=== PATIENT | female | born 1965 | race Caucasian/White ===

== ENCOUNTER 2016-03-19 11:42 | Outpatient (RCR) | payer MEDICARE, MEDICAID ==
[~2016-03-19 11:42] MED LIST: ACET1TAB43 PO; ALBU0.632 IH; AMIT100T2 PO; AMIT50TA3 PO; AMLO5TAB2 PO; ASEN10TA9 SL; BETA15CR37 TP; BUPR150T6 PO; BUPR300T51 PO; CIPR-225 PO; CIPR500T78 PO; CLON0.5T3 PO; CODE-54 PO; DESV100T PO; DILT120C17 PO; DOCU-238 PO; Docusate Sodium PO; ESTR1TAB24 PO; ESTRADIOL TOP; FERR-57 PO; FISH OIL OMEGA1 EACH PO; HYDR-3454 PO; HYDR-3730 PO; HYDR50TA3 PO; IBUP-1773 PO; Ibuprofen PO; LISI10TA2 PO; LISI40TA PO; METR500T PO; MOME13HF2 IH; MTF500T PO; NITR-65 PO; OMEP20CA12 PO; OXCA300T PO; OXYC-197 PO; OXYC5TAB71 PO; PHEN-640 PO; POTA10CA43 PO; POTA25PA PO; PRAM0.128 PO; PRAM0.252 PO; PRM25T PO; PROP80CA4 PO; SOLI5TAB4 PO
--- OUTSIDE RECORDS SUMMARY | 2016-03-19 11:45 | XMS REPORT | Continuity of Care Document ---
Author Author [facility] Organization [facility] Address Unknown Phone Unavailable Care Team Providers Care Second Cutter Name Role Phone Amy Cartagena PCP [phone] Source Comments Some departments are not documenting in the electronic medical record. If you do not see the information that you expected, contact Release of Information in the Health Information Management department at [phone] for further assistance in locating additional records.[facility] Active Allergies and Adverse Reactions Allergen Noted Date Severity Reactions Comments Marikaien 12/16/2015 Low AGITATION Prozac 12/16/2015 Low AGITATION Current Medications Prescription Sig. Disp. Refills Start End Date Status Date pramipexole (MIRAPEX) Take 0.375 mg by mouth at Active 0.125 mg tablet bedtime daily. solifenacin(+) (VESICARE) Take 10 mg by mouth Active 10 mg tablet daily. omeprazole DR(+) Take 20 mg by mouth twice Active (PRILOSEC) 20 mg capsule daily. exemestane (AROMASIN) 25 Take 25 mg by mouth Active mg tab daily. Take after a meal. amitriptyline (ELAVIL) Take 200 mg by mouth at Active 100 mg tablet bedtime as needed. diltiazem (CARDIZEM) 120 Take 120 mg by mouth Active mg tab twice daily. ibuprofen (MOTRIN) 800 mg Take 800 mg by mouth Active tablet every 6 hours as needed for Pain. Take with food. albuterol-ipratropium Inhale 3 mL solution by Active (DUONEB) 0.5 mg-3 mg(2.5 nebulizer as directed mg base)/3 mL nebulizer twice daily as needed for solution Wheezing. albuterol (VENTOLIN HFA, Inhale 2 Puffs by mouth Active PROAIR HFA, PROVENTIL into the lungs every 6 HFA) 90 mcg/actuation hours as needed for inhaler Wheezing or Shortness of Breath. Shake well before use. oxyCODONE/acetaminophen Take 1 Tab by mouth every 40 Tab 0 12/26/19 03/17/20 Discontin (PERCOCET) 5/325 mg 6 hours as needed for 16 16 ued tablet Pain Active Problems No known active problems Most Recent Encounters Date Type Specialty Providers Description 03/17/2016 Hospital Khanh Campoverde MD Breast cancer (HCC) Encounter 03/17/2016 Anesthesia Dorian Jarrell, CENTRAL OFFICE EQUIPMENT ENGINEER Event 03/17/2016 Surgery Khanh Campoverde MD RECONSTRUCTION BREAST WITH IMPLANT-Left tissue production weigher exchange for fdc silicone implant, right breast reduction for symmetry, and excision of excess tisse under arms 02/18/2016 Prep for Case Plastic Surgery Khanh Campoverde MD 02/17/2016 Office Visit Plastic Surgery Khanh Campoverde MD Postoperative state (Primary Dx) 02/06/2016 Nurse Only Plastic Surgery Daniela Velasquez RN 02/04/2016 Telephone Plastic Surgery Khanh Campoverde MD General Question - question 01/27/2016 Office Visit Plastic Surgery Khanh Campoverde MD Postoperative state (Primary Dx) 01/16/2016 Nurse Only Plastic Surgery Daniela Velasquez RN 01/09/2016 Nurse Only Plastic Surgery Daniela Velasquez RN 01/01/2016 Nurse Only Plastic Surgery Daniela Velasquez, JUAN 12/26/2015 Surgery Khanh Campoverde MD INSERTION TISSUE SANDWICH WRAPPER BREAST, DELAYED 12/24/2015 Telephone Plastic Khanh Lama MD Pre-op Clearance - phone call from pharmacy 12/22/2015 Telephone Kirill Murray MD Breast Problem Social History Tobacco Use Types Packs/Day Years Used Date Never Smoker Smokeless Tobacco: Never Used Alcohol Use Drinks/Week oz/Week Comments Yes 0 Standard 0.0 OCCASIONAL drinks or equivalent Last Filed Vital Signs Vital Sign Reading Time Taken Blood Pressure 121/74 03/17/2016 5:40 PM HOME STEREO EQUIPMENT INSTALLER Pulse 88 03/17/2016 5:40 PM HOME STEREO EQUIPMENT INSTALLER Temperature 36.3 C (97.3 F) 03/17/2016 3:57 PM HOME STEREO EQUIPMENT INSTALLER Respiratory Rate 18 12/16/2015 12:12 PM CDT Height 1.486 m (4' 10.5") 03/17/2016 10:37 AM HOME STEREO EQUIPMENT INSTALLER Weight 89.4 kg (197 lb 1.5 oz) 03/17/2016 10:37 AM HOME STEREO EQUIPMENT INSTALLER Body Mass Index 40.49 03/17/2016 10:37 AM HOME STEREO EQUIPMENT INSTALLER Oxygen Saturation 93% 03/17/2016 5:40 PM HOME STEREO EQUIPMENT INSTALLER Plan of Care Date Type Specialty Providers Description 03/24/2016 Appointment Plastic Surgery Daniela Velasquez, JUAN Health Maintenance Due Date Last Done Comments Physical (Comprehensive) 06/26/1974 Exam Pertussis Vaccine 06/26/1978 Tetanus Vaccine 06/26/1984 Cervical Cancer Screening 06/26/1988 Breast Cancer Screening 2007 Influenza Vaccine 12/19/2015 Procedures from Last 3 Months Procedure Name Priority Date/Time Associated Diagnosis Comments PROCEDURES-SCAN 03/18/2016 Results for this 11:47 AM HOME STEREO EQUIPMENT INSTALLER procedure are in the results section. 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 INSERTION TISSUE SANDWICH WRAPPER 12/26/2015 Breast cancer (HCC) BREAST, DELAYED 7:45 AM CDT Special Needs Results from Last 3 Months PROCEDURES-SCAN (03/18/2016 11:47 AM) Narrative Ordered by an unspecified provider. PROCEDURES-SCAN (12/27/2015 3:28 PM) Narrative Ordered by an unspecified provider. SURGICAL PATHOLOGY (12/26/2015 9:48 AM) Component Value Range PATHOLOGY REPORT [facility] [email or web address] Fabian Spencer MD, PhD, Director of Anatomic Pathology Department of Pathology and Laboratory Medicine [address] [place] [id number] Surgical Pathology Office: [phone] SURGICAL PATHOLOGY REPORT NAME: RADHA HERRERA SURG PATH #: [id number] MR #: [id number] SPECIMEN CLASS: SR BILLING #: [id number] ALT ID #: LOCATION: [facility] DATE OF PROCEDURE: 12/26/2015 AGE: 50 SEX: F DATE RECEIVED: 12/26/2015 : 1965 TIME RECEIVED: 09:48 PHYSICIAN: KHANH CAMPOVERDE MD DATE OF REPORT: 12/27/2015 COPY TO: DATE OF PRINTIN12/27/2015 ################################################## ###################### Final Diagnosis: A. Skin, "left breast mastectomy skin", excision: Dermal fibrosis Attestation: By this signature, I attest that I have personally formulated the final interpretation expressed in this report and that the above diagnosis is based upon my examination of the slides and/or other material indicated in this report. +++Electronically Signed Out By+++ oriana/12/26/2015 Interpreted by: Wilber Bailey MD, Attending Physician 12/27/2015 ################################################## ###################### Material Received: A: left breast mastectomy skin History: 50-year-old female with a history of breast cancer. Gross Description: A. Received in formalin, labeled with the patient's name and "left breast mastectomy scar" are two excisions of pale pimentel skin and underlying tissue that measure 1.5 x 1.5 x 1.0 cm and 10.0 x 1.0 x 1.0 cm. The skin surface of the largest demonstrates a 3.0 x 0.3 cm white area that is grossly consistent with scar. Both are serially sectioned and customer assistance representative sections are submitted in cassette A1. (jkh) jhema/12/26/2015
[2016-03-19 12:08] LABS: BASOPHILS # (AUTO) 0.1 10^3/uL (0.0-0.1); BASOPHILS % (AUTO) 1 % (0-10); EOSINOPHILS # (AUTO) 0.6 10^3/uL (0.0-0.3); EOSINOPHILS % (AUTO) 5 % (0-10); LYMPHOCYTES # (AUTO) 3.2 X 10^3 (1.0-4.0); LYMPHOCYTES % (AUTO) 28 % (12-44); MEAN CORPUSCULAR HEMOGLOBIN 28 PG (25-34); MEAN CORPUSCULAR HGB CONC 32 G/DL (32-36); MEAN CORPUSCULAR VOLUME 89 FL (80-99); MEAN PLATELET VOLUME 8.8 FL (7.4-10.4); MONOCYTES # (AUTO) 0.8 X 10^3 (0.0-1.0); MONOCYTES % (AUTO) 7 % (0-12); NEUTROPHILS # (AUTO) 6.7 X 10^3 (1.8-7.8); NEUTROPHILS % (AUTO) 59 % (42-75); PLATELET COUNT 360 10^3/uL (130-400); RED BLOOD COUNT 3.96 10^6/uL (4.35-5.85); RED CELL DISTRIBUTION WIDTH 13.2 % (10.0-14.5); WHITE BLOOD COUNT 11.3 10^3/uL (4.3-11.0)
[2016-03-19 12:59] LABS: ALANINE AMINOTRANSFERASE 16 U/L (0-55); ALBUMIN 3.8 G/DL (3.2-4.5); ANION GAP 9 MMOL/L (5-14); ASPARTATE AMINO TRANSFERASE 18 U/L (5-34); BILIRUBIN,TOTAL 0.2 MG/DL (0.1-1.0); BLOOD UREA NITROGEN 15 MG/DL (7-18); BUN/CREATININE RATIO 16; CALCIUM 8.4 MG/DL (8.5-10.1); CARBON DIOXIDE 22 MMOL/L (21-32); CHLORIDE 111 MMOL/L (98-107); CREATININE SERUM 0.95 MG/DL (0.60-1.30); GFR ESTIMATED > 60; GLUCOSE 85 MG/DL (70-105); POTASSIUM 3.9 MMOL/L (3.6-5.0); SODIUM 142 MMOL/L (135-145); TOTAL PROTEIN 6.3 G/DL (6.4-8.2)
== END 2016-06-17 | disposition home or self-care (01) ==
LOC: ONC 11:42
PROVIDERS: ATTEND Internal Medicine Hematology & Oncology
DX: C50.412 Malignant neoplasm of upper-outer quadrant of left female breast (principal); J44.9 Chronic obstructive pulmonary disease, unspecified; I10 Essential (primary) hypertension; E78.5 Hyperlipidemia, unspecified; F31.9 Bipolar disorder, unspecified; K21.9 Gastro-esophageal reflux disease without esophagitis; E66.01 Morbid (severe) obesity due to excess calories; Z68.41 Body mass index [BMI] 40.0-44.9, adult; Z79.899 Other long term (current) drug therapy
CPT/HCPCS: 36415; 80053; 85025; 86300; 99214

== ENCOUNTER 2016-07-28 12:09 | Outpatient (RCR) | payer MEDICARE, MEDICAID ==
[2016-07-28 11:26] LABS: BASOPHILS # (AUTO) 0.1 10^3/uL (0.0-0.1); BASOPHILS % (AUTO) 1 % (0-10); EOSINOPHILS # (AUTO) 1.4 10^3/uL (0.0-0.3); EOSINOPHILS % (AUTO) 13 % (0-10); LYMPHOCYTES # (AUTO) 2.4 X 10^3 (1.0-4.0); LYMPHOCYTES % (AUTO) 23 % (12-44); MEAN CORPUSCULAR HEMOGLOBIN 28 PG (25-34); MEAN CORPUSCULAR HGB CONC 32 G/DL (32-36); MEAN CORPUSCULAR VOLUME 87 FL (80-99); MEAN PLATELET VOLUME 8.5 FL (7.4-10.4); MONOCYTES # (AUTO) 0.5 X 10^3 (0.0-1.0); MONOCYTES % (AUTO) 5 % (0-12); NEUTROPHILS # (AUTO) 6.2 X 10^3 (1.8-7.8); NEUTROPHILS % (AUTO) 58 % (42-75); PLATELET COUNT 356 10^3/uL (130-400); RED BLOOD COUNT 4.19 10^6/uL (4.35-5.85); RED CELL DISTRIBUTION WIDTH 12.7 % (10.0-14.5); WHITE BLOOD COUNT 10.7 10^3/uL (4.3-11.0)
[2016-07-28 12:04] LABS: ALANINE AMINOTRANSFERASE 28 U/L (0-55); ALBUMIN 3.8 G/DL (3.2-4.5); ANION GAP 7 MMOL/L (5-14); ASPARTATE AMINO TRANSFERASE 18 U/L (5-34); BILIRUBIN,TOTAL 0.2 MG/DL (0.1-1.0); BLOOD UREA NITROGEN 16 MG/DL (7-18); BUN/CREATININE RATIO 18; CALCIUM 8.7 MG/DL (8.5-10.1); CARBON DIOXIDE 24 MMOL/L (21-32); CHLORIDE 109 MMOL/L (98-107); GFR ESTIMATED > 60; GLUCOSE 92 MG/DL (70-105); POTASSIUM 3.9 MMOL/L (3.6-5.0); SODIUM 140 MMOL/L (135-145); TOTAL PROTEIN 6.4 G/DL (6.4-8.2)
[~2016-07-28 12:09] MED LIST changes: +OXYC-529 PO; -OXYC5TAB71 PO
== END 2016-10-26 | disposition home or self-care (01) ==
LOC: ONC 12:09
PROVIDERS: ATTEND Internal Medicine Hematology & Oncology
DX: E66.01 Morbid (severe) obesity due to excess calories; F31.9 Bipolar disorder, unspecified; I10 Essential (primary) hypertension; Z68.41 Body mass index [BMI] 40.0-44.9, adult; E78.5 Hyperlipidemia, unspecified; K21.9 Gastro-esophageal reflux disease without esophagitis; Z79.899 Other long term (current) drug therapy; C50.412 Malignant neoplasm of upper-outer quadrant of left female breast; J44.9 Chronic obstructive pulmonary disease, unspecified
CPT/HCPCS: 36415; 80053; 85025; 99213

== ENCOUNTER → 2016-08-06 | Outpatient (CLI) | payer MEDICARE, MEDICAID ==
[~2016-08-06] MED LIST changes: -OXYC-529 PO; +OXYC5TAB71 PO
--- NOTE | 2016-08-06 13:36 | Diagnostic Imaging Report ---
EXAMINATION: DEXA scan. INDICATION: Osteopenia TECHNIQUE: Bone mineral density estimated based on dual energy radiography over the lumbar spine and femoral necks, was performed. FINDINGS: The lumbar spine T-score is -0.7. T score in the left femoral neck is 0.4 and on the right side is 0.8. IMPRESSION: Bone mineral density measurements near the lower limits of normal. Dictated by: Dictated on workstation # [id number]
--- NOTE | 2016-08-07 10:56 | Diagnostic Imaging Report ---
Right breast screening mammogram. COMPARISON: 03/27/15 The current study was also evaluated with a Computer Aided Detection (CAD) system. INDICATION: History of breast cancer status post left mastectomy. FINDINGS: Heterogenous breast parenchyma is seen. There are scattered benign-appearing calcifications. No developing suspicious mass or cluster of calcification. Allowing for technique and positional differences, no suspicious change is seen. IMPRESSION: No significant change. ACR BI-RADS Category 2: Benign findings. Result letter will be mailed to the patient. Note: At least 10% of breast cancer is not imaged by mammography. Dictated by: Dictated on workstation # [id number]
== END ==
LOC: RAD 09:56
PROVIDERS: ATTEND Nurse Practitioner Adult Health
DX: Z12.31 Encounter for screening mammogram for malignant neoplasm of breast (principal); E89.40 Asymptomatic postprocedural ovarian failure; C50.112 Malignant neoplasm of central portion of left female breast; Z90.722 Acquired absence of ovaries, bilateral; Z79.818 Long term (current) use of other agents affecting estrogen receptors and estrogen levels
CPT/HCPCS: 77080

== ENCOUNTER 2016-09-27 13:41 | Emergency (ER) | payer MEDICARE, MEDICAID ==
[~2016-09-27] VITALS: Ht 147.3 cm; Wt 93.9 kg
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
[2016-09-27 14:58] VITALS: BP 169/101
== END 2016-09-27 14:58 | disposition home or self-care (01) ==
LOC: EDUNIT# 13:41 → ER 13:43
DX: M25.561 Pain in right knee (principal); I10 Essential (primary) hypertension; J44.9 Chronic obstructive pulmonary disease, unspecified; Z87.39 Personal history of other diseases of the musculoskeletal system and connective tissue; W17.89XA Other fall from one level to another, initial encounter; Y92.511 Restaurant or cafe as the place of occurrence of the external cause
CPT/HCPCS: 99282

== ENCOUNTER 2016-12-01 12:31 | Outpatient (RCR) | payer MEDICARE, MEDICAID ==
[~2016-12-01 12:31] MED LIST changes: +OXYC-529 PO; -OXYC5TAB71 PO
[2016-12-01 13:06] LABS: BASOPHILS # (AUTO) 0.1 10^3/uL (0.0-0.1); BASOPHILS % (AUTO) 1 % (0-10); EOSINOPHILS # (AUTO) 0.7 10^3/uL (0.0-0.3); EOSINOPHILS % (AUTO) 7 % (0-10); LYMPHOCYTES % (AUTO) 29 % (12-44); MEAN CORPUSCULAR HEMOGLOBIN 28 PG (25-34); MEAN CORPUSCULAR HGB CONC 32 G/DL (32-36); MEAN CORPUSCULAR VOLUME 87 FL (80-99); MEAN PLATELET VOLUME 8.8 FL (7.4-10.4); MONOCYTES # (AUTO) 0.7 X 10^3 (0.0-1.0); MONOCYTES % (AUTO) 6 % (0-12); NEUTROPHILS % (AUTO) 58 % (42-75); PLATELET COUNT 366 10^3/uL (130-400); RED BLOOD COUNT 4.37 10^6/uL (4.35-5.85); WHITE BLOOD COUNT 10.4 10^3/uL (4.3-11.0)
[2016-12-01 13:41] LABS: ALBUMIN 4.1 GM/DL (3.2-4.5); BILIRUBIN,TOTAL 0.5 MG/DL (0.1-1.0); CALCIUM 9.5 MG/DL (8.5-10.1); CREATININE SERUM 1.01 MG/DL (0.60-1.30); POTASSIUM 3.7 MMOL/L (3.6-5.0)
== END 2017-01-01 13:08 | disposition home or self-care (01) ==
LOC: ONC 12:31
PROVIDERS: ATTEND Internal Medicine Hematology & Oncology
DX: C50.412 Malignant neoplasm of upper-outer quadrant of left female breast (principal); J44.9 Chronic obstructive pulmonary disease, unspecified; I10 Essential (primary) hypertension; E78.5 Hyperlipidemia, unspecified; F31.9 Bipolar disorder, unspecified; K21.9 Gastro-esophageal reflux disease without esophagitis; E66.01 Morbid (severe) obesity due to excess calories; Z68.41 Body mass index [BMI] 40.0-44.9, adult; Z79.899 Other long term (current) drug therapy
CPT/HCPCS: 36415; 80053; 85025; 99213

== ENCOUNTER 2017-02-11 18:46 | Emergency (ER) | payer MEDICARE, MEDICAID ==
[~2017-02-11] VITALS: Ht 147.3 cm; Wt 94.8 kg
[~2017-02-11 18:46] MED LIST changes: -OXYC-529 PO; +OXYC5TAB71 PO
[2017-02-11] MEDS ORDERED: MELA5TAB14 PO (19:32)
[2017-02-11] MEDS ORDERED: NF-SOLIF5T PO (19:32)
[2017-02-11] MEDS ORDERED: BUDE10.2 IH (19:32)
[2017-02-11] MEDS ORDERED: NF-ROPIN4T PO (19:32)
[2017-02-11] MEDS ORDERED: EXEM25TA4 PO (19:32)
[2017-02-11] MEDS ORDERED: CALC1CAP21 PO (19:32)
[2017-02-11] MEDS ORDERED: MONT10TA21 PO (19:32)
[2017-02-11] MEDS ORDERED: FAMOTIDINE 20 MG (PEPCID) TABLET PO ONE (19:45)
[2017-02-11] MEDS ORDERED: methylPREDNISolone 125 MG (Solu-MEDROL) VIAL IM ONE (19:45)
[2017-02-11] MEDS ORDERED: hydrOXYzine (VISTARIL) 25 MG CAP PO ONE (19:45)
[2017-02-11] MEDS ORDERED: FAMO40TA72 PO ×2 (19:46→19:47)
[2017-02-11] MEDS ORDERED: HYDR50CA PO ×2 (19:46→19:47)
[2017-02-11] MEDS ORDERED: MOME15CR17 TP ×2 (19:46→19:47)
--- NOTE | 2017-02-11 19:47 | ED Integumentary General ---
General Chief Complaint: Skin/Wound Problems Stated Complaint: RASH Nursing Triage Note: PT TO ED 5 W/ S.O. FOR C/O RASH ET REDNESS AROUND SYED DRAIN SITE. PT REPORTS RASH ET ITCHING ONSET THIS AM, WORSE THROUGHOUT THE EVENING. PT REPORTS SHE CALLED [facility], WHERE SHE HAD HER BILAT MASTECTOMY 02/01 ET WAS TOLD TO COME TO THE ED "IMMEDIATELY". NO DISTRESS NOTED. PT DOES APPEAR, ET REPORTS, SHE IS "VERY ANXIOUS" Source: patient, other (FEMALE S.O.) History of Present Illness Time seen by provider: 19:14 Initial Comments C/O VERY ITCHY RASH OVER MOST OF BODY ON WAKING THIS MORNING STATES SHE WAS FINE WHEN SHE WENT TO BED LAST PM NO SWELLING ANYWHERE NO DIFFICULTY SWALLOWING OR BREATHING OR TALKING NO NAUSEA/VOMITING NO SWEATS PT ATE AT THE [employer] LAST PM FOR DINNER--SLOPPY [employer], CORN, FRUIT COCKTAIL, TEA DENIES ANY OTHER NEW FOODS, MEDICATIONS OR EXPOSURES PT IS CURRENTLY TAKING HYDROCODONE FOR POST OP PAIN --HAS TAKEN IN THE PAST WITHOUT PROBLEMS PT HAD BILATERAL MASTECTOMY 02/01/17 [address] [facility] BY DR. BHATT. HAS BILATERAL SYED DRAINS IN PLACE CONCERNED THAT SHE IS HAVING PAIN AT DRAIN SITE EVERY TIME THE DRAINS ARE EMPTIED. DRAINS STILL WITH MODERATE AMOUNT OF SERO-SANGUINOUS DRAINAGE IN THEM NO REDNESS OR DISCHARGE AT SKIN AT DRAIN SITES OR AT MASTECTOMY SITES NO FEVER NO COUGH OR SHORTNESS OF BREATH PT SAW DR. BHATT ON THURSDAY 02/08, AND HAS ANOTHER APPOINTMENT WITH HIM ON Wednesday02/15/17 PT WAS SEEN AT [facility] THIS AM FOR THIS RASH AND WAS GIVEN RX FOR PREDNISONE . TOOK 1 DOSE THIS AM, PLUS "1 CAPFUL" OF LIQUID BENADRYL THIS AM WITHOUT RELIEF NO HISTORY OF SIMILAR Allergies and Home Medications Allergies Coded Allergies: fluoxetine (Unverified Allergy, Mild, 11/20/14) zolpidem (Verified Allergy, Unknown, "MAKES ME ANGRY LIKE A BEAR", 05/09/15 ) fluticasone (Verified Adverse Reaction, Unknown, DOESN'T WORK, 05/09/15) gabapentin (Verified Adverse Reaction, Unknown, NOT EFFECTIVE, 05/09/15) salmeterol (Verified Adverse Reaction, Unknown, DOESN'T WORK, 05/09/15) Uncoded Allergies: PROPANOLOL (Adverse Reaction, Unknown, NOT EFFECTIVE, 05/09/15) Home Medications Amitriptyline Hcl 100 Mg Tablet, 200 MG PO HS, (Reported) TAKE 2 (100MG) TABS Budesonide/Formoterol Fumarate 10.2 Gm Hfa.aer.ad, 2 PUFF IH BID, (Reported) Calcium Carbonate/Vitamin D3 1 Each Capsule, 1 EACH PO, (Reported) Exemestane 25 Mg Tablet, 25 MG PO, (Reported) Famotidine 40 Mg Tablet, 40 MG PO DAILY, #10 Prescribed by: KENDY SELLERS on 02/11/171946 Hydroxyzine Pamoate 50 Mg Capsule, 50 MG PO Q6H, #20 Prescribed by: KENDY SELLERS on 02/11/171946 Melatonin 5 Mg Tablet, 10 MG PO, (Reported) Mometasone Furoate 15 Gm Cream..g., 0 TP TID, #1 Prescribed by: KENDY SELLERS on 02/11/171946 Mometasone/Formoterol 13 Gm Hfa.aer.ad, 1 PUFF IH BID PRN for SHORTNESS OF BREATH, (Reported) PRN SOB Montelukast Sodium 10 Mg Tablet, 10 MG PO, (Reported) Ropinirole HCl 4 Mg Tab, 4 MG PO, (Reported) Solifenacin Succinate 5 Mg Tablet, 5 MG PO, (Reported) Constitutional: no symptoms reported EENTM: no symptoms reported Respiratory: no symptoms reported Cardiovascular: no symptoms reported Gastrointestinal: no symptoms reported Genitourinary: no symptoms reported Musculoskeletal: see HPI Skin: see HPI Psychiatric/Neurological: Anxiety Endocrine: No Symptoms Reported Hematologic/Lymphatic: No Symptoms Reported Past Nvvmzbj-Snrsxi-Kyqkvu Hx Patient Social History Alcohol Use: Denies Use Recreational Drug Use: No Smoking Status: Former Smoker Type Used: Cigarettes Former Smoker, Quit: Apr 19, 2005 Recent Foreign Travel: No Contact w/Someone Who Travel: No Recent Infectious Disease Expo: No Recent Hopitalizations: No Physical Abuse: No Sexual Abuse: No Mistreated: No Fear: No Immunizations Up To Date Tetanus Booster (TDap): More than 5yrs Date of Pneumonia Vaccine: Jun 21, 2013 Date of Influenza Vaccine: Jan 17, 2015 Seasonal Allergies Seasonal Allergies: Yes Surgeries History of Surgeries: Yes (PVS CYSTO x2, ANT REP, LT KNEE SCOPE x3, BILAT CTR, BILAT ELBOW NERVE SX; BILATERAL MASTECTOMY 02/01/17) Surgeries: Appendectomy, Bladder Surgery, Breast, Section, Hysterectomy, Tubal Ligation Respiratory History of Respiratory Disorde: Yes (USES O2 AT HOME PRN) Respiratory Disorders: COPD Cardiovascular History of Cardiac Disorders: Yes Cardiac Disorders: Hypertension Neurological History of Neurological Disord: No 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 System Hx 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 Disorders: Yes Sexually Transmitted Disease: No HIV/AIDS: No Female 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 Disorders: Menstrual Problems Genitourinary History of Genitourinary Disor: Yes Genitourinary Disorders: Bladder Infection, UTI-Chronic Gastrointestinal History of Gastrointestinal Di: Yes Gastrointestinal Disorders: Gastroesophageal Reflux, Esophagitis, Hiatal Hernia Musculoskeletal History of Musculoskeletal Dis: Yes (BULGING DISK IN BACK; RESTLESS LEG SYNDROME) Musculoskeletal Disorders: Degenerate Disk Disease, Arthritis, Chronic Back Pain Endocrine History of Endocrine Disorders: No HEENT History of HEENT Disorders: Yes HEENT Disorders: Cataract Cancer History of Cancer: Yes Cancer: Breast Psychosocial History of Psychiatric Problem: Yes (EXTENSIVE PSYCH ISSUES) Behavioral Health Disorders: ADD/ADHD, Sleep Difficulties, Anxiety, Suicide Attempts, Bipolar, Depression Suicide Risk Score: 0 Integumentary History of Skin or Integumenta: Yes (YEAST INFECTION UNDER ABDOMINAL FOLD) Blood Transfusions History of Blood Disorders: No Adverse Reaction to a Blood Tr: No Family Medical History Family Medial History: Cancer GRANDPARENTS Congestive heart failure GRANDPARENTS Family history: Cardiovascular disease GRANDPARENTS Family history: Hypertension GRANDPARENTS Heart disease GRANDPARENTS Myocardial infarction GRANDPARENTS Stroke 03 MOTHER, Onset:60 years & older No Family History of: Abdominal aortic aneurysm Family history: Allergy Family history: Alzheimer's disease Family history: Asthma Family history: Diabetes mellitus Family history: Gastrointestinal disease Family history: Thyroid disorder Hereditary disease Seizure disorder Physical Exam Vital Signs Vital Sign - Last 12Hours 02/11/17 19:08 Temp 97.5 Pulse 128 Resp 20 B/P (MAP) 195/111 Pulse Ox 98 O2 Delivery Room Air Capillary Refill : Less Than 3 Seconds General Appearance: other (ANXIOUS, SOMEWHAT HOSTILE. CONSTANT MOVEMENTS, CONSTANT SCRATCHING; PT DRESSED IN MEN'S CLOTHING AND WEARING MEN'S UNDERWEAR) HEENT: PERRL/EOMI, other (POOR DENTITION, NO SWELLING TO TONGUE, POSTERIOR PHARYNX OR LIPS) Neck: normal inspection Cardiovascular: regular rate, rhythm, no murmur Respiratory: normal breath sounds, no respiratory distress, no accessory muscle use, other (BILATERAL CHEST SYED DRAINS IN PLACE--RIGHT DRAIN WITH APPROX. 30 ML OF SEROSANGUINOUS FLUID, LEFT DRAIN WITH APPROX. 25 ML SEROSANGUINOUS FLUID. SKIN AT DRAINAGE SITES APPEARS NORMAL WITH NO EVIDENCE OF INFECTION--NO REDNESS OR DRAINAGE FROM SKIN. MASTECTOMY SITES WITHOUT SIGNS OF INFECTION AND STERISTRIPS ARE IN PLACE AND WOUNDS ARE CLEAN AND DRY AND APPEAR INTACT. 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 PALMS, SOLES, FACE AND SCALP SPARED. ) Progress/Results/Core Measures Results/Orders My Orders Orders - KENDY SELLERS DO Hydroxyzine Oral (Vistaril Capsule) (02/11/17 19:45) Famotidine Tablet (Pepcid Tablet) (02/11/17 19:45) Methylprednisolone Sod Succ (Solu-Medrol (02/11/17 19:45) Medications Given in ED Current Medications Medications Dose Ordered Sig/Rolo Route Start Time Stop Time Status Last Admin Dose Admin Famotidine 40 mg ONCE ONCE PO 02/11/17 19:45 02/11/17 19:46 DC 02/11/17 19:49 40 MG Hydroxyzine Pamoate 75 mg ONCE ONCE PO 02/11/17 19:45 02/11/17 19:46 DC 02/11/17 19:49 75 MG Methylprednisolone Sodium Succinate 125 mg ONCE ONCE IM 02/11/17 19:45 02/11/17 19:46 DC 02/11/17 19:49 125 MG Vital Signs/I&O Vital Sign - Last 12Hours 02/11/17 02/11/17 19:08 19:56 Temp 97.5 Pulse 128 131 Resp 20 20 B/P (MAP) 195/111 Pulse Ox 98 99 O2 Delivery Room Air Room Air Blood Pressure Mean: 139 Progress Note : Progress Note SYMPTOMS BEGINNING TO EASE SOMEWHAT PRIOR TO DISMISSAL LENGTHY DISCUSSION WITH PT AND FEMALE S.O. ABOUT POTENTIAL CAUSES AND TREATMENTS. Departure Impression Impression: Primary Impression: Hives of unknown origin Additional Impression: RECENT BILATERAL MASTECTOMIES Disposition: HOME, SELF-CARE Condition: Stable Departure-Patient Inst. Referrals: PHILIPPE SALGUERO DO (PCP) Primary Care Physician BROOKE LAMB (Family) Primary Care Physician Patient Instructions: Hives (DC) Add. Discharge Instructions: INCREASE YOUR PREDNISONE TO 3 PILLS A DAY FOR 3 DAYS LOTS OF CLEAR LIQUIDS NO NEW FOODS, AVOID ANY PROCESSED FOODS, AVOID SPICES OF ANY KIND. FOLLOW UP WITH YOUR SURGEON ON WEDNESDAY SCHEDULED FOLLOW UP WITH [facility] IN 2-3 DAYS IF NO BETTER All discharge instructions reviewed with patient and/or family. Voiced understanding. Scripts Famotidine (Pepcid) 40 Mg Tablet 40 MG PO DAILY, #10 TAB Prov: KENDY SELLERS DO 02/11/17 Hydroxyzine Pamoate (Vistaril) 50 Mg Capsule 50 MG PO Q6H for Itching, #20 CAP Prov: KENDY SELLERS DO 02/11/17 Mometasone Furoate ([place]) 15 Gm Cream..g. 0 TP TID, #1 TUBE Prov: KENDY SELLERS DO 02/11/17 KENDY SELLERS DO Feb 11, 2017 19:47
[2017-02-11 19:56] VITALS: BP 142/103
--- OUTSIDE RECORDS SUMMARY | 2017-02-12 08:24 | XMS REPORT | Clinical Summary ---
Author Author [facility] Organization [facility] Address Unknown Phone Unavailable Care Team Providers Care Functional Manager Name Role Phone PCP Unavailable Source Comments Some departments are not documenting in the electronic medical record. If you do not see the information that you expected, contact Release of Information in the Health Information Management department at [phone] for further assistance in locating additional records.[facility] Allergies Active Allergy Reactions Severity Noted Date Comments Zolpidem AGITATION Low 12/16/2015 Fluoxetine AGITATION Low 12/16/2015 Current Medications Prescription Sig. Disp. Refills Start [...] Shortness of Breath. Shake well before use. Active Problems No known active problems Family History Medical History Relation Name Comments Hypertension Father Cancer Maternal Aunt Diabetes Mother Hypertension Mother Stroke Mother Cancer Paternal Aunt Cancer Paternal Grandfather Cancer Paternal Grandmother Cancer Paternal Uncle Relation Name Status Comments Father Maternal Aunt Mother Paternal Aunt Paternal Grandfather Paternal Grandmother Paternal Uncle Social History Tobacco Use Types Packs/Day Years Used Date Never Smoker Smokeless Tobacco: Never Used Alcohol Use Drinks/Week oz/Week Comments Yes 0 Standard 0.0 OCCASIONAL drinks or equivalent Sex Assigned at Date Recorded Not on file Last Filed Vital Signs Vital Sign Reading Time Taken Blood Pressure 146/83 05/22/2016 4:00 PM MACHINE PIE MAKER Pulse 94 05/22/2016 4:00 PM MACHINE PIE MAKER Temperature 37.2 C (98.9 F) 05/22/2016 4:00 PM MACHINE PIE MAKER Respiratory Rate 18 12/16/2015 12:12 PM CDT Oxygen Saturation 93% 03/17/2016 5:40 PM MACHINE PIE MAKER Inhaled Oxygen - - Concentration Weight 90.7 kg (200 lb) 05/22/2016 4:00 PM MACHINE PIE MAKER Height 147.3 cm (4' 10") 05/22/2016 4:00 PM MACHINE PIE MAKER Body Mass Index 41.8 05/22/2016 4:00 PM MACHINE PIE MAKER Plan of Treatment Health Maintenance Due Date Last Done Comments PHYSICAL (COMPREHENSIVE) 06/26/1974 EXAM PERTUSSIS VACCINE 06/26/1978 TETANUS VACCINE 06/26/1984 CERVICAL CANCER SCREENING 06/26/1997 BREAST CANCER SCREENING 2007 INFLUENZA VACCINE 11/17/2016 Implants Implanted Type Area Racing Secretary Device Expiration Model / Identifier Date Serial / Lot Matrix Tissue [id number] Alloderm Left: LIFECELL 09/15/2017 [id number] / Thick Acellular Dermis Breast [id number] Implanted: Qty: 1 on 12/26/2015 by 20 / Homer Alejandra MD [id number] Clinical Informatics Specialist Tissue 12.7x10.8cm Breast Left: MENTOR:AESTHETI 06/12/2019 [id number] / 450ml Style 9200 Textured Breast CS PRDT [id number] Implanted: Qty: 1 on 12/26/2015 by 3 / Homer Alejandra MD [id number] Implant Breast 350ml Gel Smooth Left: MENTOR:AESTHETI 12/22/2018 350 -3501 Memorygel Cohesive I Breast CS PRDT BC / Implanted: Qty: 1 on 03/17/2016 by [id number] Homer Alejandra MD 2 / NA Explanted Type Area Racing Secretary Device Expiration Model / Identifier Date Serial / Lot Tissue Clinical Informatics Specialist Left: CAROLEE NA / Explanted: Qty: 1 on 03/17/2016 Breast [facility] NA / [id number] Results Not on filefrom Last 3 Months
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
--- OUTSIDE RECORDS SUMMARY | 2017-02-12 08:25 | XMS REPORT ---
Author Author BROOKE LAMB Organization [facility] Address [address] [place] [address] Care Team Providers Care Power Plant Technician Name Role Phone HUNG LAMBE Unavailable PROBLEMS Type Condition ICD9-CM Code [id number] Code Onset Dates Condition Status SNOMED Code Problem Obesity E66.9 Active 891948048 Problem Breast cancer C50.919 Active 006040551 Problem Arthritis M19.90 Active 4082033 Problem Fibromyalgia M79.7 Active 81416614 Problem GERD (gastroesophageal reflux disease) K21.9 Active 944186785 Problem COPD (chronic obstructive pulmonary disease) J44.9 Active 88947194 Problem Essential hypertension I10 Active 11905562 Problem PTSD (post-traumatic stress disorder) F43.10 Active 41426854 Problem MAYRA (generalized anxiety disorder) F41.1 Active 05912873 Problem Stress incontinence N39.3 Active 73833990 Problem Schizoaffective disorder, unspecified F25.9 Active 02051013 Problem Gastroesophageal reflux disease with esophagitis K21.0 Active 040422232 Problem Anxiety disorder, unspecified F41.9 Active 430339514 Problem Restless leg syndrome G25.81 Active 84919752 Problem History of breast cancer Z85.3 Active 149257334 Problem Overactive bladder N32.81 Active 208721904 Problem Claustrophobia F40.240 Active 37068928 Problem Open wound T14.8 Active 578159925 Problem Confusion R41.0 Active 311662475 Problem Stroke-like symptoms R29.90 Active 761965389 Problem Unspecified mood [affective] disorder F39 Active 126858609 Problem Neuropathy G62.9 Active 046361479 Problem Hypoxia, sleep related G47.34 Active 65488685 Problem Cough R05 Active 24432251 Problem Seasonal allergic rhinitis due to pollen J30.1 Active 74826874 Problem Arthralgia of right knee M25.561 Active 90911090 Problem Eye exam, routine Z01.00 Active 203071753 Problem Intermittent drowsiness R40.0 Active 964089398 Problem Arthralgia of right ankle M25.571 Active 494185566 Problem Arthralgia of right hip M25.551 Active 94420796 Problem Burn of stomach, initial encounter T28.2XXA Active 09935637 Problem Sleep apnea in adult G47.33 Active 34290654 Problem Fatigue, unspecified type R53.83 Active 44259395 Problem Acute right-sided low back pain without sciatica M54.5 Active 773932865 ALLERGIES Unknown Allergies SOCIAL HISTORY No smoking Hx information available PLAN OF CARE VITAL SIGNS MEDICATIONS Unknown Medications RESULTS No Results PROCEDURES No Known procedures IMMUNIZATIONS No Known Immunizations
--- OUTSIDE RECORDS SUMMARY | 2017-02-12 08:25 | XMS REPORT ---
Author Author BROOKE LAMB [facility] Address [address] [place] [address] Care Team Providers Care Individual Pension Adviser Name Role Phone JOANNE LAMBNETTE Unavailable PROBLEMS Type Condition ICD9-CM Code [id number] Code Onset Dates Condition Status SNOMED Code Problem GERD (gastroesophageal reflux disease) K21.9 Active 688206467 Problem COPD (chronic obstructive pulmonary disease) J44.9 Active 83263456 Problem Breast cancer C50.919 Active 076377588 Problem Eye exam, routine Z01.00 Active 911045432 Problem Essential hypertension I10 Active 28882339 Problem Obesity E66.9 Active 454309046 Problem Arthritis M19.90 Active 1577849 Problem MAYRA (generalized anxiety disorder) F41.1 Active 59350444 Problem PTSD (post-traumatic stress disorder) F43.10 Active 03902898 Problem Stress incontinence N39.3 Active 92324043 Problem Schizoaffective disorder, unspecified F25.9 Active 57492216 Problem Gastroesophageal reflux disease with esophagitis K21.0 Active 600385441 Problem Anxiety disorder, unspecified F41.9 Active 265050538 Problem History of breast cancer Z85.3 Active 245871186 Problem Overactive bladder N32.81 Active 536311065 Problem Restless leg syndrome G25.81 Active 41777590 Problem Claustrophobia F40.240 Active 96935409 Problem Open wound T14.8 Active 487738894 Problem Confusion R41.0 Active 475994246 Problem Stroke-like symptoms R29.90 Active 391691776 Problem Unspecified mood [affective] disorder F39 Active 362838495 Problem Neuropathy G62.9 Active 635785874 Problem Hypoxia, sleep related G47.34 Active 48946397 Problem Seasonal allergic rhinitis due to pollen J30.1 Active 79554914 Problem Cough R05 Active 84278428 Problem Arthralgia of right knee M25.561 Active 22392502 Problem Fibromyalgia M79.7 Active 78471493 Problem Acute right-sided low back pain without sciatica M54.5 Active 618051951 Problem Arthralgia of right hip M25.551 Active 54017854 Problem Arthralgia of right ankle M25.571 Active 782849924 Problem Fatigue, unspecified type R53.83 Active 32733765 Problem Sleep apnea in adult G47.33 Active 05439045 Problem Intermittent drowsiness R40.0 Active 633827627 Problem Burn of stomach, initial encounter T28.2XXA Active 21063085 ALLERGIES No Known Allergies SOCIAL HISTORY No smoking Hx information available PLAN OF CARE VITAL SIGNS MEDICATIONS Medication Instructions Dosage Frequency Start Date End Date Duration Status Ibuprofen 600 MG Orally every 6 hrs 1 tablet as needed for pain 6h Nov, 30 days Active RESULTS No Results PROCEDURES No Known procedures IMMUNIZATIONS No Known Immunizations
--- OUTSIDE RECORDS SUMMARY | 2017-02-12 08:26 | XMS REPORT ---
Author Author BROOKE LAMB [facility] Address [address] [place] [address] Care Team Providers Care Metal Hanging Supervisor Name Role Phone JOANNE LAMBNETTE Unavailable PROBLEMS Type Condition ICD9-CM Code [id number] Code Onset Dates Condition Status SNOMED Code Problem GERD (gastroesophageal reflux disease) K21.9 Active 212000905 Problem COPD (chronic obstructive pulmonary disease) J44.9 Active 71252526 Problem Breast cancer C50.919 Active 448951644 Problem Eye exam, routine Z01.00 Active 010727509 Problem Essential hypertension I10 Active 14265982 Problem Obesity E66.9 Active 523886742 Problem Arthritis M19.90 Active 8652315 Problem MAYRA (generalized anxiety disorder) F41.1 Active 97706064 Problem PTSD (post-traumatic stress disorder) F43.10 Active 25338087 Problem Stress incontinence N39.3 Active 68022720 Problem Schizoaffective disorder, unspecified F25.9 Active 00492046 Problem Gastroesophageal reflux disease with esophagitis K21.0 Active 697326119 Problem Anxiety disorder, unspecified F41.9 Active 404457853 Problem History of breast cancer Z85.3 Active 151114984 Problem Overactive bladder N32.81 Active 683706219 Problem Restless leg syndrome G25.81 Active 25958570 Problem Claustrophobia F40.240 Active 76046670 Problem Open wound T14.8 Active 509482956 Problem Confusion R41.0 Active 013288240 Problem Stroke-like symptoms R29.90 Active 868980582 Problem Unspecified mood [affective] disorder F39 Active 568418258 Problem Neuropathy G62.9 Active 953999573 Problem Hypoxia, sleep related G47.34 Active 77932404 Problem Seasonal allergic rhinitis due to pollen J30.1 Active 57759217 Problem Cough R05 Active 96307872 Problem Arthralgia of right knee M25.561 Active 62466752 Problem Fibromyalgia M79.7 Active 61687860 Problem Acute right-sided low back pain without sciatica M54.5 Active 689505163 Problem Arthralgia of right hip M25.551 Active 91254342 Problem Arthralgia of right ankle M25.571 Active 606171693 Problem Fatigue, unspecified type R53.83 Active 76039338 Problem Sleep apnea in adult G47.33 Active 57345189 Problem Intermittent drowsiness R40.0 Active 285828624 Problem Burn of stomach, initial encounter T28.2XXA Active 00390177 ALLERGIES No Known Allergies SOCIAL HISTORY No smoking Hx information available PLAN OF CARE VITAL SIGNS Height 60 in 2016-04-23 Weight 197.7 lbs 2016-04-23 BMI 38.61 kg/m2 2016-04-23 MEDICATIONS No Known Medications RESULTS No Results PROCEDURES No Known procedures IMMUNIZATIONS No Known Immunizations
--- OUTSIDE RECORDS SUMMARY | 2017-02-12 08:27 | XMS REPORT ---
Author Author BROOKE LAMB Organization [facility] Address [address] [place] [address] Care Team Providers Care Lube Technician Name Role Phone JOANNE LAMBNETTE Unavailable PROBLEMS Type Condition ICD9-CM Code ZUO75-QD Code Onset Dates Condition Status SNOMED Code Problem GERD (gastroesophageal reflux disease) K21.9 Active 486805665 Problem COPD (chronic obstructive pulmonary disease) J44.9 Active 05955018 Problem Breast cancer C50.919 Active 215438858 Problem Eye exam, routine Z01.00 Active 166837005 Problem Essential hypertension I10 Active 37047613 Problem Obesity E66.9 Active 146701249 Problem Arthritis M19.90 Active 9837771 Problem MAYRA (generalized anxiety disorder) F41.1 Active 75715175 Problem PTSD (post-traumatic stress disorder) F43.10 Active 57216708 Problem Stress incontinence N39.3 Active 88123917 Problem Schizoaffective disorder, unspecified F25.9 Active 50037355 Problem Gastroesophageal reflux disease with esophagitis K21.0 Active 694087402 Problem Anxiety disorder, unspecified F41.9 Active 512032618 Problem History of breast cancer Z85.3 Active 619492465 Problem Overactive bladder N32.81 Active 213392465 Problem Restless leg syndrome G25.81 Active 92028796 Problem Claustrophobia F40.240 Active 23790827 Problem Open wound T14.8 Active 251114114 Problem Confusion R41.0 Active 887822980 Problem Stroke-like symptoms R29.90 Active 991792304 Problem Unspecified mood [affective] disorder F39 Active 862676359 Problem Neuropathy G62.9 Active 842541632 Problem Hypoxia, sleep related G47.34 Active 89754131 Problem Seasonal allergic rhinitis due to pollen J30.1 Active 37690534 Problem Cough R05 Active 44748278 Problem Arthralgia of right knee M25.561 Active 51847127 Problem Fibromyalgia M79.7 Active 53989389 Problem Acute right-sided low back pain without sciatica M54.5 Active 637116276 Problem Arthralgia of right hip M25.551 Active 30666112 Problem Arthralgia of right ankle M25.571 Active 025292673 Problem Fatigue, unspecified type R53.83 Active 21061941 Problem Sleep apnea in adult G47.33 Active 72098569 Problem Intermittent drowsiness R40.0 Active 966906936 Problem Burn of stomach, initial encounter T28.2XXA Active 36623741 ALLERGIES Unknown Allergies SOCIAL HISTORY No smoking Hx information available PLAN OF CARE VITAL SIGNS MEDICATIONS Unknown Medications RESULTS No Results PROCEDURES No Known procedures IMMUNIZATIONS No Known Immunizations
--- OUTSIDE RECORDS SUMMARY | 2017-02-12 08:27 | XMS REPORT ---
Author Author BROOKE LAMB [facility] Address [address] [place] [address] Care Team Providers Care Technology Strategist Name Role Phone JOANNE LAMBNETTE Unavailable PROBLEMS Type Condition ICD9-CM Code UDJ89-NI Code Onset Dates Condition Status SNOMED Code Problem GERD (gastroesophageal reflux disease) K21.9 Active 599438055 Problem COPD (chronic obstructive pulmonary disease) J44.9 Active 23920835 Problem Breast cancer C50.919 Active 876542736 Problem Eye exam, routine Z01.00 Active 410730203 Problem Essential hypertension I10 Active 79310962 Problem Obesity E66.9 Active 155246453 Problem Arthritis M19.90 Active 7707490 Problem MAYRA (generalized anxiety disorder) F41.1 Active 01967317 Problem PTSD (post-traumatic stress disorder) F43.10 Active 69401253 Problem Stress incontinence N39.3 Active 21034667 Problem Schizoaffective disorder, unspecified F25.9 Active 73091700 Problem Gastroesophageal reflux disease with esophagitis K21.0 Active 266663739 Problem Anxiety disorder, unspecified F41.9 Active 630258193 Problem History of breast cancer Z85.3 Active 622146778 Problem Overactive bladder N32.81 Active 098573576 Problem Restless leg syndrome G25.81 Active 83947861 Problem Claustrophobia F40.240 Active 61682721 Problem Open wound T14.8 Active 021802668 Problem Confusion R41.0 Active 739706976 Problem Stroke-like symptoms R29.90 Active 139017379 Problem Unspecified mood [affective] disorder F39 Active 286394287 Problem Neuropathy G62.9 Active 381347307 Problem Hypoxia, sleep related G47.34 Active 63119233 Problem Seasonal allergic rhinitis due to pollen J30.1 Active 70627988 Problem Cough R05 Active 85910168 Problem Arthralgia of right knee M25.561 Active 08530498 Problem Fibromyalgia M79.7 Active 69402204 Problem Acute right-sided low back pain without sciatica M54.5 Active 756979709 Problem Arthralgia of right hip M25.551 Active 75280055 Problem Arthralgia of right ankle M25.571 Active 743753245 Problem Fatigue, unspecified type R53.83 Active 88700703 Problem Sleep apnea in adult G47.33 Active 29715301 Problem Intermittent drowsiness R40.0 Active 943568268 Problem Burn of stomach, initial encounter T28.2XXA Active 51948517 ALLERGIES No Information SOCIAL HISTORY Never Assessed PLAN OF CARE VITAL SIGNS MEDICATIONS Medication Instructions Dosage Frequency Start Date End Date Duration Status C-PAP Machine 1 L by inhalation route at bedtime at night Jun, Active RESULTS No Results PROCEDURES No Known [...]
--- OUTSIDE RECORDS SUMMARY | 2017-02-12 08:28 | XMS REPORT ---
Author Author BROOKE LAMB [facility] Address [address] [place] [address] Care Team Providers Care Mine Surveyor Name Role Phone JOANNE LAMBNETTE Unavailable PROBLEMS Type Condition ICD9-CM Code GEY20-HH Code Onset Dates Condition Status SNOMED Code Problem GERD (gastroesophageal reflux disease) K21.9 Active 674559651 Problem COPD (chronic obstructive pulmonary disease) J44.9 Active 84825999 Problem Breast cancer C50.919 Active 052280832 Problem Eye exam, routine Z01.00 Active 951704784 Problem Essential hypertension I10 Active 16313292 Problem Obesity E66.9 Active 728604986 Problem Arthritis M19.90 Active 3668124 Problem MAYRA (generalized anxiety disorder) F41.1 Active 01511330 Problem PTSD (post-traumatic stress disorder) F43.10 Active 94501557 Problem Stress incontinence N39.3 Active 65485052 Problem Schizoaffective disorder, unspecified F25.9 Active 66941813 Problem Gastroesophageal reflux disease with esophagitis K21.0 Active 277449758 Problem Anxiety disorder, unspecified F41.9 Active 447208728 Problem History of breast cancer Z85.3 Active 096390897 Problem Overactive bladder N32.81 Active 677740321 Problem Restless leg syndrome G25.81 Active 35122069 Problem Claustrophobia F40.240 Active 94021517 Problem Open wound T14.8 Active 150935000 Problem Confusion R41.0 Active 436873607 Problem Stroke-like symptoms R29.90 Active 211897077 Problem Unspecified mood [affective] disorder F39 Active 002304983 Problem Neuropathy G62.9 Active 002980870 Problem Hypoxia, sleep related G47.34 Active 48130607 Problem Seasonal allergic rhinitis due to pollen J30.1 Active 40568777 Problem Cough R05 Active 07558951 Problem Arthralgia of right knee M25.561 Active 85746568 Problem Fibromyalgia M79.7 Active 26147183 Problem Acute right-sided low back pain without sciatica M54.5 Active 302256550 Problem Arthralgia of right hip M25.551 Active 96476285 Problem Arthralgia of right ankle M25.571 Active 358391994 Problem Fatigue, unspecified type R53.83 Active 88045209 Problem Sleep apnea in adult G47.33 Active 31314863 Problem Intermittent drowsiness R40.0 Active 219819507 Problem Burn of stomach, initial encounter T28.2XXA Active 88727639 ALLERGIES No Information SOCIAL HISTORY Never Assessed PLAN OF CARE VITAL SIGNS MEDICATIONS Medication Instructions Dosage Frequency Start Date End Date Duration Status VESIcare 5 mg Orally Once a day 1 tablet 24h Jul, 30 days Active Requip 4 MG Orally Once a day as directed 24h Feb, 30 days Active Amitriptyline HCl 100 mg Orally Once at bedtime for sleep 1 tablet Apr 30 days Active RESULTS No Results PROCEDURES Procedure Date Ordered Result Body Site OXIMETRY-OVERNIGHT 2016-06-22 records requested IMMUNIZATIONS No Known Immunizations MEDICAL (GENERAL) HISTORY [...]
--- OUTSIDE RECORDS SUMMARY | 2017-02-12 08:28 | XMS REPORT ---
Author Author BROOKE LAMB [facility] Address [address] [place] [address] Care Team Providers Care Software Installation Engineer Name Role Phone JOANNE LAMBNETTE Unavailable PROBLEMS Type Condition ICD9-CM Code XEU45-CL Code Onset Dates Condition Status SNOMED Code Problem GERD (gastroesophageal reflux disease) K21.9 Active 616570504 Problem COPD (chronic obstructive pulmonary disease) J44.9 Active 33326467 Problem Breast cancer C50.919 Active 972873093 Problem Eye exam, routine Z01.00 Active 615997352 Problem Essential hypertension I10 Active 39527123 Problem Obesity E66.9 Active 113675685 Problem Arthritis M19.90 Active 8766715 Problem MAYRA (generalized anxiety disorder) F41.1 Active 30271518 Problem PTSD (post-traumatic stress disorder) F43.10 Active 36616784 Problem Stress incontinence N39.3 Active 76947778 Problem Schizoaffective disorder, unspecified F25.9 Active 38829934 Problem Gastroesophageal reflux disease with esophagitis K21.0 Active 538213835 Problem Anxiety disorder, unspecified F41.9 Active 519339478 Problem History of breast cancer Z85.3 Active 249762814 Problem Overactive bladder N32.81 Active 787407953 Problem Restless leg syndrome G25.81 Active 41232533 Problem Claustrophobia F40.240 Active 24200117 Problem Open wound T14.8 Active 751936210 Problem Confusion R41.0 Active 135065653 Problem Stroke-like symptoms R29.90 Active 467969995 Problem Unspecified mood [affective] disorder F39 Active 244536286 Problem Neuropathy G62.9 Active 900078412 Problem Hypoxia, sleep related G47.34 Active 36176045 Problem Seasonal allergic rhinitis due to pollen J30.1 Active 01471247 Problem Cough R05 Active 97552262 Problem Arthralgia of right knee M25.561 Active 44173658 Problem Fibromyalgia M79.7 Active 24388865 Problem Acute right-sided low back pain without sciatica M54.5 Active 584863772 Problem Arthralgia of right hip M25.551 Active 55827185 Problem Arthralgia of right ankle M25.571 Active 967156121 Problem Fatigue, unspecified type R53.83 Active 86944011 Problem Sleep apnea in adult G47.33 Active 75993460 Problem Intermittent drowsiness R40.0 Active 200575075 Problem Burn of stomach, initial encounter T28.2XXA Active 64923649 ALLERGIES No Information SOCIAL HISTORY Never Assessed PLAN OF CARE VITAL SIGNS Height 60 in 2016-06-03 Weight 199.6 lbs 2016-06-03 BMI 38.98 kg/m2 2016-06-03 MEDICATIONS Unknown Medications RESULTS No Results PROCEDURES [...]
--- OUTSIDE RECORDS SUMMARY | 2017-02-12 08:28 | XMS REPORT ---
Author Author BROOKE LAMB [facility] Address [address] [place] [address] Care Team Providers Care Tree Thinner Name Role Phone JOANNE LAMBNETTE Unavailable PROBLEMS Type Condition ICD9-CM Code VUZ03-RJ Code Onset Dates Condition Status SNOMED Code Problem GERD (gastroesophageal reflux disease) K21.9 Active 643668190 Problem COPD (chronic obstructive pulmonary disease) J44.9 Active 54173956 Problem Breast cancer C50.919 Active 713949421 Problem Eye exam, routine Z01.00 Active 242433823 Problem Essential hypertension I10 Active 97265012 Problem Obesity E66.9 Active 956021311 Problem Arthritis M19.90 Active 3697698 Problem MAYRA (generalized anxiety disorder) F41.1 Active 75121934 Problem PTSD (post-traumatic stress disorder) F43.10 Active 22635114 Problem Stress incontinence N39.3 Active 00932166 Problem Schizoaffective disorder, unspecified F25.9 Active 31642215 Problem Gastroesophageal reflux disease with esophagitis K21.0 Active 900347843 Problem Anxiety disorder, unspecified F41.9 Active 242476358 Problem History of breast cancer Z85.3 Active 286549791 Problem Overactive bladder N32.81 Active 246258551 Problem Restless leg syndrome G25.81 Active 13674498 Problem Claustrophobia F40.240 Active 64612015 Problem Open wound T14.8 Active 882247274 Problem Confusion R41.0 Active 181967920 Problem Stroke-like symptoms R29.90 Active 891929934 Problem Unspecified mood [affective] disorder F39 Active 299709555 Problem Neuropathy G62.9 Active 778427242 Problem Hypoxia, sleep related G47.34 Active 58059237 Problem Seasonal allergic rhinitis due to pollen J30.1 Active 25132689 Problem Cough R05 Active 71142398 Problem Arthralgia of right knee M25.561 Active 97728742 Problem Fibromyalgia M79.7 Active 92513741 Problem Acute right-sided low back pain without sciatica M54.5 Active 433226504 Problem Arthralgia of right hip M25.551 Active 49454167 Problem Arthralgia of right ankle M25.571 Active 139470308 Problem Fatigue, unspecified type R53.83 Active 78962711 Problem Sleep apnea in adult G47.33 Active 03470420 Problem Intermittent drowsiness R40.0 Active 621860757 Problem Burn of stomach, initial encounter T28.2XXA Active 82100870 ALLERGIES No Information SOCIAL HISTORY Never Assessed [...]
--- OUTSIDE RECORDS SUMMARY | 2017-02-12 08:29 | XMS REPORT ---
Author Author BROOKE LAMB [facility] Address [address] [place] [address] Care Team Providers Care Project Management Professional Name Role Phone JOANNE LAMBNETTE Unavailable PROBLEMS Type Condition ICD9-CM Code GRE86-PG Code Onset Dates Condition Status SNOMED Code Problem GERD (gastroesophageal reflux disease) K21.9 Active 917906719 Problem COPD (chronic obstructive pulmonary disease) J44.9 Active 02166316 Problem Breast cancer C50.919 Active 734346225 Problem Eye exam, routine Z01.00 Active 488763414 Problem Essential hypertension I10 Active 98422158 Problem Obesity E66.9 Active 192943030 Problem Arthritis M19.90 Active 2783785 Problem MAYRA (generalized anxiety disorder) F41.1 Active 87875978 Problem PTSD (post-traumatic stress disorder) F43.10 Active 57705463 Problem Stress incontinence N39.3 Active 76007323 Problem Schizoaffective disorder, unspecified F25.9 Active 63191681 Problem Gastroesophageal reflux disease with esophagitis K21.0 Active 929510414 Problem Anxiety disorder, unspecified F41.9 Active 255777358 Problem History of breast cancer Z85.3 Active 827626383 Problem Overactive bladder N32.81 Active 459237410 Problem Restless leg syndrome G25.81 Active 36136395 Problem Claustrophobia F40.240 Active 47482990 Problem Open wound T14.8 Active 328463187 Problem Confusion R41.0 Active 052478588 Problem Stroke-like symptoms R29.90 Active 913642037 Problem Unspecified mood [affective] disorder F39 Active 688728654 Problem Neuropathy G62.9 Active 546785072 Problem Hypoxia, sleep related G47.34 Active 85579534 Problem Seasonal allergic rhinitis due to pollen J30.1 Active 97697027 Problem Cough R05 Active 43297975 Problem Arthralgia of right knee M25.561 Active 99190681 Problem Fibromyalgia M79.7 Active 17444869 Problem Acute right-sided low back pain without sciatica M54.5 Active 048604010 Problem Arthralgia of right hip M25.551 Active 41670581 Problem Arthralgia of right ankle M25.571 Active 051668590 Problem Fatigue, unspecified type R53.83 Active 39567114 Problem Sleep apnea in adult G47.33 Active 98178390 Problem Intermittent drowsiness R40.0 Active 730803130 Problem Burn of stomach, initial encounter T28.2XXA Active 31253303 ALLERGIES No Information SOCIAL HISTORY Never Assessed [...]
--- OUTSIDE RECORDS SUMMARY | 2017-02-12 08:30 | XMS REPORT ---
Author Author BROOKE LAMB [facility] Address [address] [place] [address] Care Team Providers Care Leather Sorter Name Role Phone JOANNE LAMBNETTE Unavailable PROBLEMS Type Condition ICD9-CM Code GEW04-CV Code Onset Dates Condition Status SNOMED Code Problem GERD (gastroesophageal reflux disease) K21.9 Active 192896924 Problem COPD (chronic obstructive pulmonary disease) J44.9 Active 03933035 Problem Breast cancer C50.919 Active 381224244 Problem Eye exam, routine Z01.00 Active 070741223 Problem Essential hypertension I10 Active 15912947 Problem Obesity E66.9 Active 627339358 Problem Arthritis M19.90 Active 7229056 Problem MAYRA (generalized anxiety disorder) F41.1 Active 29937728 Problem PTSD (post-traumatic stress disorder) F43.10 Active 81987358 Problem Stress incontinence N39.3 Active 55863413 Problem Schizoaffective disorder, unspecified F25.9 Active 00136813 Problem Gastroesophageal reflux disease with esophagitis K21.0 Active 641647160 Problem Anxiety disorder, unspecified F41.9 Active 028726195 Problem History of breast cancer Z85.3 Active 350124058 Problem Overactive bladder N32.81 Active 855442375 Problem Restless leg syndrome G25.81 Active 03583860 Problem Claustrophobia F40.240 Active 10801825 Problem Open wound T14.8 Active 904945926 Problem Confusion R41.0 Active 657611902 Problem Stroke-like symptoms R29.90 Active 867342518 Problem Unspecified mood [affective] disorder F39 Active 229755029 Problem Neuropathy G62.9 Active 069294336 Problem Hypoxia, sleep related G47.34 Active 24871386 Problem Seasonal allergic rhinitis due to pollen J30.1 Active 96470307 Problem Cough R05 Active 38556444 Problem Arthralgia of right knee M25.561 Active 42792151 Problem Fibromyalgia M79.7 Active 01991965 Problem Acute right-sided low back pain without sciatica M54.5 Active 692055510 Problem Arthralgia of right hip M25.551 Active 20621992 Problem Arthralgia of right ankle M25.571 Active 717231842 Problem Fatigue, unspecified type R53.83 Active 24415355 Problem Sleep apnea in adult G47.33 Active 23497580 Problem Intermittent drowsiness R40.0 Active 098062925 Problem Burn of stomach, initial encounter T28.2XXA Active 95916428 ALLERGIES No Information SOCIAL HISTORY Never Assessed [...]
--- OUTSIDE RECORDS SUMMARY | 2017-02-12 08:30 | XMS REPORT ---
Author Author BROOKE LAMB Organization [facility] Address [address] [place] [address] Care Team Providers Care Vest Maker Name Role Phone JOANNE LAMBNETTE Unavailable PROBLEMS Type Condition ICD9-CM Code MFD52-YF Code Onset Dates Condition Status SNOMED Code Problem GERD (gastroesophageal reflux disease) K21.9 Active 677763718 Problem COPD (chronic obstructive pulmonary disease) J44.9 Active 05526903 Problem Breast cancer C50.919 Active 181778080 Problem Eye exam, routine Z01.00 Active 176472550 Problem Essential hypertension I10 Active 01382975 Problem Obesity E66.9 Active 040053510 Problem Arthritis M19.90 Active 5439781 Problem MAYRA (generalized anxiety disorder) F41.1 Active 47324010 Problem PTSD (post-traumatic stress disorder) F43.10 Active 57031013 Problem Stress incontinence N39.3 Active 56607173 Problem Schizoaffective disorder, unspecified F25.9 Active 07708827 Problem Gastroesophageal reflux disease with esophagitis K21.0 Active 799017598 Problem Anxiety disorder, unspecified F41.9 Active 375114397 Problem History of breast cancer Z85.3 Active 750245736 Problem Overactive bladder N32.81 Active 892959992 Problem Restless leg syndrome G25.81 Active 72987098 Problem Claustrophobia F40.240 Active 98634212 Problem Open wound T14.8 Active 681158484 Problem Confusion R41.0 Active 217356698 Problem Stroke-like symptoms R29.90 Active 050510327 Problem Unspecified mood [affective] disorder F39 Active 245187398 Problem Neuropathy G62.9 Active 425718139 Problem Hypoxia, sleep related G47.34 Active 51063043 Problem Seasonal allergic rhinitis due to pollen J30.1 Active 47993235 Problem Cough R05 Active 06770815 Problem Arthralgia of right knee M25.561 Active 94147645 Problem Fibromyalgia M79.7 Active 57371477 Problem Acute right-sided low back pain without sciatica M54.5 Active 779309865 Problem Arthralgia of right hip M25.551 Active 30966974 Problem Arthralgia of right ankle M25.571 Active 808050520 Problem Fatigue, unspecified type R53.83 Active 38931282 Problem Sleep apnea in adult G47.33 Active 61455767 Problem Intermittent drowsiness R40.0 Active 215505820 Problem Burn of stomach, initial encounter T28.2XXA Active 72023335 ALLERGIES Unknown Allergies SOCIAL HISTORY No smoking Hx information available PLAN OF CARE VITAL SIGNS Height 60 in 2016-04-07 Weight 195.7 lbs 2016-04-07 BMI 38.22 kg/m2 2016-04-07 MEDICATIONS Unknown Medications RESULTS No Results PROCEDURES No Known procedures IMMUNIZATIONS No Known Immunizations
--- OUTSIDE RECORDS SUMMARY | 2017-02-12 08:30 | XMS REPORT ---
Author Author BROOKE LAMB Organization [facility] Address [address] [place] [address] Care Team Providers Care Double Needle Operator Lockstitch Name Role Phone JOANNE LAMBNETTE Unavailable PROBLEMS Type Condition ICD9-CM Code CSW13-MC Code Onset Dates Condition Status SNOMED Code Problem GERD (gastroesophageal reflux disease) K21.9 Active 300573841 Problem COPD (chronic obstructive pulmonary disease) J44.9 Active 97110893 Problem Breast cancer C50.919 Active 789819901 Problem Eye exam, routine Z01.00 Active 618848182 Problem Essential hypertension I10 Active 27870054 Problem Obesity E66.9 Active 991088478 Problem Arthritis M19.90 Active 4562347 Problem MAYRA (generalized anxiety disorder) F41.1 Active 54292841 Problem PTSD (post-traumatic stress disorder) F43.10 Active 92482847 Problem Stress incontinence N39.3 Active 52811631 Problem Schizoaffective disorder, unspecified F25.9 Active 95508054 Problem Gastroesophageal reflux disease with esophagitis K21.0 Active 920176711 Problem Anxiety disorder, unspecified F41.9 Active 429926807 Problem History of breast cancer Z85.3 Active 497679897 Problem Overactive bladder N32.81 Active 946150157 Problem Restless leg syndrome G25.81 Active 10325419 Problem Claustrophobia F40.240 Active 67118758 Problem Open wound T14.8 Active 533683622 Problem Confusion R41.0 Active 067007053 Problem Stroke-like symptoms R29.90 Active 259587316 Problem Unspecified mood [affective] disorder F39 Active 695879365 Problem Neuropathy G62.9 Active 834370687 Problem Hypoxia, sleep related G47.34 Active 25478474 Problem Seasonal allergic rhinitis due to pollen J30.1 Active 85228982 Problem Cough R05 Active 34137615 Problem Arthralgia of right knee M25.561 Active 08515313 Problem Fibromyalgia M79.7 Active 53645871 Problem Acute right-sided low back pain without sciatica M54.5 Active 448037518 Problem Arthralgia of right hip M25.551 Active 48941638 Problem Arthralgia of right ankle M25.571 Active 231138817 Problem Fatigue, unspecified type R53.83 Active 74290908 Problem Sleep apnea in adult G47.33 Active 77418638 Problem Intermittent drowsiness R40.0 Active 725109537 Problem Burn of stomach, initial encounter T28.2XXA Active 38949841 ALLERGIES Unknown Allergies SOCIAL HISTORY No smoking Hx information available PLAN OF CARE VITAL SIGNS MEDICATIONS Unknown Medications RESULTS No Results PROCEDURES No Known procedures IMMUNIZATIONS No Known Immunizations
--- OUTSIDE RECORDS SUMMARY | 2017-02-12 08:31 | XMS REPORT ---
Author Author BROOKE LAMB [facility] Address [address] [place] [address] Care Team Providers Care Bat Carrier Name Role Phone JOANNE LAMBNETTE Unavailable PROBLEMS Type Condition ICD9-CM Code [id number] Code Onset Dates Condition Status SNOMED Code Problem GERD (gastroesophageal reflux disease) K21.9 Active 697198270 Problem COPD (chronic obstructive pulmonary disease) J44.9 Active 25689307 Problem Breast cancer C50.919 Active 249346485 Problem Eye exam, routine Z01.00 Active 572152502 Problem Essential hypertension I10 Active 57902596 Problem Obesity E66.9 Active 801417644 Problem Arthritis M19.90 Active 9176917 Problem MAYRA (generalized anxiety disorder) F41.1 Active 80363952 Problem PTSD (post-traumatic stress disorder) F43.10 Active 62560080 Problem Stress incontinence N39.3 Active 10727805 Problem Schizoaffective disorder, unspecified F25.9 Active 80626253 Problem Gastroesophageal reflux disease with esophagitis K21.0 Active 054859815 Problem Anxiety disorder, unspecified F41.9 Active 952544310 Problem History of breast cancer Z85.3 Active 381814869 Problem Overactive bladder N32.81 Active 995098631 Problem Restless leg syndrome G25.81 Active 08081524 Problem Claustrophobia F40.240 Active 99176166 Problem Open wound T14.8 Active 995906144 Problem Confusion R41.0 Active 182260012 Problem Stroke-like symptoms R29.90 Active 255675038 Problem Unspecified mood [affective] disorder F39 Active 868265247 Problem Neuropathy G62.9 Active 126065756 Problem Hypoxia, sleep related G47.34 Active 69790123 Problem Seasonal allergic rhinitis due to pollen J30.1 Active 36461264 Problem Cough R05 Active 74604994 Problem Arthralgia of right knee M25.561 Active 80407103 Problem Fibromyalgia M79.7 Active 50016050 Problem Acute right-sided low back pain without sciatica M54.5 Active 739569630 Problem Arthralgia of right hip M25.551 Active 26752384 Problem Arthralgia of right ankle M25.571 Active 866955492 Problem Fatigue, unspecified type R53.83 Active 78981297 Problem Sleep apnea in adult G47.33 Active 04622592 Problem Intermittent drowsiness R40.0 Active 075331361 Problem Burn of stomach, initial encounter T28.2XXA Active 76163676 ALLERGIES No Information SOCIAL HISTORY Never Assessed [...]
--- OUTSIDE RECORDS SUMMARY | 2017-02-12 08:31 | XMS REPORT ---
Author Author BROOKE LAMB [facility] Address [address] [place] [address] Care Team Providers Care Tree Expert Name Role Phone JOANNE LAMBNETTE Unavailable PROBLEMS Type Condition ICD9-CM Code DQO13-SH Code Onset Dates Condition Status SNOMED Code Problem GERD (gastroesophageal reflux disease) K21.9 Active 393477519 Problem COPD (chronic obstructive pulmonary disease) J44.9 Active 31429867 Problem Breast cancer C50.919 Active 908358175 Problem Eye exam, routine Z01.00 Active 109684078 Problem Essential hypertension I10 Active 76740536 Problem Obesity E66.9 Active 995474545 Problem Arthritis M19.90 Active 7326170 Problem MAYRA (generalized anxiety disorder) F41.1 Active 92901585 Problem PTSD (post-traumatic stress disorder) F43.10 Active 03321373 Problem Stress incontinence N39.3 Active 81941234 Problem Schizoaffective disorder, unspecified F25.9 Active 79337062 Problem Gastroesophageal reflux disease with esophagitis K21.0 Active 317331972 Problem Anxiety disorder, unspecified F41.9 Active 380908352 Problem History of breast cancer Z85.3 Active 408826485 Problem Overactive bladder N32.81 Active 683716304 Problem Restless leg syndrome G25.81 Active 84006423 Problem Claustrophobia F40.240 Active 88907566 Problem Open wound T14.8 Active 908131117 Problem Confusion R41.0 Active 991191687 Problem Stroke-like symptoms R29.90 Active 107822003 Problem Unspecified mood [affective] disorder F39 Active 536769779 Problem Neuropathy G62.9 Active 899250106 Problem Hypoxia, sleep related G47.34 Active 42927866 Problem Seasonal allergic rhinitis due to pollen J30.1 Active 83881234 Problem Cough R05 Active 14068345 Problem Arthralgia of right knee M25.561 Active 90146468 Problem Fibromyalgia M79.7 Active 24606248 Problem Acute right-sided low back pain without sciatica M54.5 Active 945284262 Problem Arthralgia of right hip M25.551 Active 67315828 Problem Arthralgia of right ankle M25.571 Active 198910478 Problem Fatigue, unspecified type R53.83 Active 44551385 Problem Sleep apnea in adult G47.33 Active 42342054 Problem Intermittent drowsiness R40.0 Active 802017082 Problem Burn of stomach, initial encounter T28.2XXA Active 31506654 ALLERGIES No Information SOCIAL HISTORY Never Assessed [...]
--- OUTSIDE RECORDS SUMMARY | 2017-02-12 08:32 | XMS REPORT ---
Author Author BROOKE LAMB [facility] Address [address] [place] [address] Care Team Providers Care Service Establishment Attendant Name Role Phone JOANNE LAMBNETTE Unavailable PROBLEMS Type Condition ICD9-CM Code RWH02-JU Code Onset Dates Condition Status SNOMED Code Problem GERD (gastroesophageal reflux disease) K21.9 Active 179258299 Problem COPD (chronic obstructive pulmonary disease) J44.9 Active 67435388 Problem Breast cancer C50.919 Active 485827374 Problem Eye exam, routine Z01.00 Active 560231240 Problem Essential hypertension I10 Active 50084094 Problem Obesity E66.9 Active 850766761 Problem Arthritis M19.90 Active 3059928 Problem MAYRA (generalized anxiety disorder) F41.1 Active 61592593 Problem PTSD (post-traumatic stress disorder) F43.10 Active 48195452 Problem Stress incontinence N39.3 Active 97432363 Problem Schizoaffective disorder, unspecified F25.9 Active 30991107 Problem Gastroesophageal reflux disease with esophagitis K21.0 Active 301420725 Problem Anxiety disorder, unspecified F41.9 Active 842564825 Problem History of breast cancer Z85.3 Active 213482296 Problem Overactive bladder N32.81 Active 465942981 Problem Restless leg syndrome G25.81 Active 07546905 Problem Claustrophobia F40.240 Active 84974368 Problem Open wound T14.8 Active 561389284 Problem Confusion R41.0 Active 505673930 Problem Stroke-like symptoms R29.90 Active 497956093 Problem Unspecified mood [affective] disorder F39 Active 666460504 Problem Neuropathy G62.9 Active 781594109 Problem Hypoxia, sleep related G47.34 Active 65532658 Problem Seasonal allergic rhinitis due to pollen J30.1 Active 11295362 Problem Cough R05 Active 76725947 Problem Arthralgia of right knee M25.561 Active 99427282 Problem Fibromyalgia M79.7 Active 80906180 Problem Acute right-sided low back pain without sciatica M54.5 Active 411075679 Problem Arthralgia of right hip M25.551 Active 00490603 Problem Arthralgia of right ankle M25.571 Active 828648536 Problem Fatigue, unspecified type R53.83 Active 94062840 Problem Sleep apnea in adult G47.33 Active 41166509 Problem Intermittent drowsiness R40.0 Active 452757350 Problem Burn of stomach, initial encounter T28.2XXA Active 04272024 ALLERGIES No Known Allergies SOCIAL HISTORY No smoking Hx information available PLAN OF CARE VITAL SIGNS Height 60 in 2016-05-15 Weight 201.4 lbs 2016-05-15 BMI 39.33 kg/m2 2016-05-15 MEDICATIONS No Known Medications RESULTS No Results PROCEDURES No Known procedures IMMUNIZATIONS No Known Immunizations
--- OUTSIDE RECORDS SUMMARY | 2017-02-12 08:32 | XMS REPORT ---
Author Author BROOKE LAMB [facility] [address] Address [address] [place] [address] Care Team Providers Care Music Promoter Name Role Phone JOANNE LAMBNETTE Unavailable PROBLEMS Type Condition ICD9-CM Code DEO73-IL Code Onset Dates Condition Status SNOMED Code Problem GERD (gastroesophageal reflux disease) K21.9 Active 324746658 Problem COPD (chronic obstructive pulmonary disease) J44.9 Active 34588937 Problem Breast cancer C50.919 Active 665647104 Problem Eye exam, routine Z01.00 Active 786257989 Problem Essential hypertension I10 Active 07586858 Problem Obesity E66.9 Active 045402683 Problem Arthritis M19.90 Active 3124822 Problem MAYRA (generalized anxiety disorder) F41.1 Active 86574374 Problem PTSD (post-traumatic stress disorder) F43.10 Active 46963857 Problem Stress incontinence N39.3 Active 15630995 Problem Schizoaffective disorder, unspecified F25.9 Active 86614032 Problem Gastroesophageal reflux disease with esophagitis K21.0 Active 418758660 Problem Anxiety disorder, unspecified F41.9 Active 191859287 Problem History of breast cancer Z85.3 Active 369552851 Problem Overactive bladder N32.81 Active 920096587 Problem Restless leg syndrome G25.81 Active 49039681 Problem Claustrophobia F40.240 Active 49433623 Problem Open wound T14.8 Active 847967779 Problem Confusion R41.0 Active 541343856 Problem Stroke-like symptoms R29.90 Active 832274437 Problem Unspecified mood [affective] disorder F39 Active 769657439 Problem Neuropathy G62.9 Active 641956629 Problem Hypoxia, sleep related G47.34 Active 86718523 Problem Seasonal allergic rhinitis due to pollen J30.1 Active 89188802 Problem Cough R05 Active 77136336 Problem Arthralgia of right knee M25.561 Active 26397367 Problem Fibromyalgia M79.7 Active 94080450 Problem Acute right-sided low back pain without sciatica M54.5 Active 818299176 Problem Arthralgia of right hip M25.551 Active 33333310 Problem Arthralgia of right ankle M25.571 Active 476787202 Problem Fatigue, unspecified type R53.83 Active 59446828 Problem Sleep apnea in adult G47.33 Active 01889110 Problem Intermittent drowsiness R40.0 Active 445172340 Problem Burn of stomach, initial encounter T28.2XXA Active 67431148 ALLERGIES No Known Allergies SOCIAL HISTORY No smoking Hx information available PLAN OF CARE VITAL SIGNS Height 60 in 2016-05-15 Weight 201.4 lbs 2016-05-15 BMI 39.33 kg/m2 2016-05-15 MEDICATIONS No Known Medications RESULTS No Results PROCEDURES No Known procedures IMMUNIZATIONS No Known Immunizations
--- OUTSIDE RECORDS SUMMARY | 2017-02-12 08:33 | XMS REPORT ---
Author Author BROOKE LAMB [facility] Address [address] [place] [address] Care Team Providers Care Electric Lineman Name Role Phone HUNG LAMBE Unavailable PROBLEMS Type Condition ICD9-CM Code BPL82-UW Code Onset Dates Condition Status SNOMED Code Problem GERD (gastroesophageal reflux disease) K21.9 Active 180757150 Problem COPD (chronic obstructive pulmonary disease) J44.9 Active 81977419 Problem Breast cancer C50.919 Active 640608245 Problem Eye exam, routine Z01.00 Active 732299265 Problem Essential hypertension I10 Active 00135321 Problem Obesity E66.9 Active 570914031 Problem Arthritis M19.90 Active 5139261 Problem MAYRA (generalized anxiety disorder) F41.1 Active 86065893 Problem PTSD (post-traumatic stress disorder) F43.10 Active 55526925 Problem Stress incontinence N39.3 Active 26687403 Problem Schizoaffective disorder, unspecified F25.9 Active 90630863 Problem Gastroesophageal reflux disease with esophagitis K21.0 Active 714335106 Problem Anxiety disorder, unspecified F41.9 Active 329487657 Problem History of breast cancer Z85.3 Active 308599488 Problem Overactive bladder N32.81 Active 193266147 Problem Restless leg syndrome G25.81 Active 55772457 Problem Claustrophobia F40.240 Active 07618660 Problem Open wound T14.8 Active 333480664 Problem Confusion R41.0 Active 798712084 Problem Stroke-like symptoms R29.90 Active 654028821 Problem Unspecified mood [affective] disorder F39 Active 516624337 Problem Neuropathy G62.9 Active 602037693 Problem Hypoxia, sleep related G47.34 Active 84454485 Problem Seasonal allergic rhinitis due to pollen J30.1 Active 50733338 Problem Cough R05 Active 44791188 Problem Arthralgia of right knee M25.561 Active 97653936 Problem Fibromyalgia M79.7 Active 82340256 Problem Acute right-sided low back pain without sciatica M54.5 Active 236659194 Problem Arthralgia of right hip M25.551 Active 95993160 Problem Arthralgia of right ankle M25.571 Active 267900750 Problem Fatigue, unspecified type R53.83 Active 29104848 Problem Sleep apnea in adult G47.33 Active 76218820 Problem Intermittent drowsiness R40.0 Active 828022904 Problem Burn of stomach, initial encounter T28.2XXA Active 33755071 ALLERGIES Substance Reaction Event Type Date Status Latuda mood swings Drug Allergy May, Active Prozac Worsened mood swings. Drug Allergy May, Active Propranolol HCl Unknown Drug Allergy May, Active Neurontin Memory Loss Drug Allergy May, Active Ambien Unknown Drug Allergy May, Active Advair Diskus dizziness, nausea Drug Allergy May, Active SOCIAL HISTORY Never Assessed PLAN OF CARE Activity Details Follow Up 3 Months Reason:copd VITAL SIGNS Height 60 in 2016-06-08 Weight 199.1 lbs 2016-06-08 Temperature 98.3 degrees Fahrenheit 2016-06-08 Heart Rate 86 bpm 2016-06-08 Respiratory Rate 20 2016-06-08 Oximetry 96 % 2016-06-08 BMI 38.88 kg/m2 2016-06-08 Blood pressure systolic 130 mmHg 2016-06-08 Blood pressure diastolic 86 mmHg 2016-06-08 MEDICATIONS Medication Instructions Dosage Frequency Start Date End Date Duration Status TENS Unit 1 APPLY TO THE BACK 24h May, Active VESIcare 5 mg Orally Once a day 1 tablet 24h Active Ibuprofen 600 MG Orally every 6 hrs 1 tablet as needed for pain 6h Nov, 30 days Active Requip 4 MG Orally Once a day as directed 24h Feb, Active Symbicort 160-4.5 MCG/ACT Inhalation Twice a day 2 puffs 12h May, Active Pramipexole Dihydrochloride 0.25 MG TAKE 3 TABLETS BY MOUTH AT BEDTIME Active Amitriptyline HCl 100 MG Orally Once at bedtime for sleep 1 tablet Apr Active Baclofen 10 mg Orally 2 times a day 1 tablet with food or milk 12h May, Jun, 30 day(s) Active Diltiazem HCl 120 MG Orally daily TAKE 1 TABLET BY MOUTH 2 TIMES A DAY 24h Active Exemestane 25 MG Orally Once a day 1 tablet with a meal 24h Active Albuterol Sulfate 90 mcg/actuation 2 puffs by Inhalation route every 4-6 hours as needed PRN cough or wheezing Oct, Active Albuterol Sulfate (2.5 MG/3ML) 0.083% Inhalation every 4-6 hours as needed for cough or wheeze 3 ml Jan, Active RESULTS No Results PROCEDURES Procedure Date Ordered Result Body Site MEASURE BLOOD OXYGEN LEVEL Jun 08, 2016 CHEST X-RAY Jun 08, 2016 [facility] VISIT ESTABLISHED PATIENT Jun 08, 2016 IMMUNIZATIONS No Known Immunizations MEDICAL (GENERAL) HISTORY [...]
--- OUTSIDE RECORDS SUMMARY | 2017-02-12 08:33 | XMS REPORT ---
Author Author BROOKE LAMB [facility] Address [address] [place] [address] Care Team Providers Care Window Systems Administrator Name Role Phone JOANNE LAMBNETTE Unavailable PROBLEMS Type Condition ICD9-CM Code EZN14-UG Code Onset Dates Condition Status SNOMED Code Problem GERD (gastroesophageal reflux disease) K21.9 Active 504420504 Problem COPD (chronic obstructive pulmonary disease) J44.9 Active 66584094 Problem Breast cancer C50.919 Active 850380653 Problem Eye exam, routine Z01.00 Active 385870008 Problem Essential hypertension I10 Active 69851493 Problem Obesity E66.9 Active 037562929 Problem Arthritis M19.90 Active 4997735 Problem MAYRA (generalized anxiety disorder) F41.1 Active 54930717 Problem PTSD (post-traumatic stress disorder) F43.10 Active 59644168 Problem Stress incontinence N39.3 Active 80520171 Problem Schizoaffective disorder, unspecified F25.9 Active 51419254 Problem Gastroesophageal reflux disease with esophagitis K21.0 Active 132170456 Problem Anxiety disorder, unspecified F41.9 Active 897156108 Problem History of breast cancer Z85.3 Active 516507243 Problem Overactive bladder N32.81 Active 488705474 Problem Restless leg syndrome G25.81 Active 02461348 Problem Claustrophobia F40.240 Active 11160566 Problem Open wound T14.8 Active 105982139 Problem Confusion R41.0 Active 177813510 Problem Stroke-like symptoms R29.90 Active 674678925 Problem Unspecified mood [affective] disorder F39 Active 834019078 Problem Neuropathy G62.9 Active 258860789 Problem Hypoxia, sleep related G47.34 Active 43838781 Problem Seasonal allergic rhinitis due to pollen J30.1 Active 57089344 Problem Cough R05 Active 30445246 Problem Arthralgia of right knee M25.561 Active 12244176 Problem Fibromyalgia M79.7 Active 95538654 Problem Acute right-sided low back pain without sciatica M54.5 Active 555905523 Problem Arthralgia of right hip M25.551 Active 36292057 Problem Arthralgia of right ankle M25.571 Active 701848785 Problem Fatigue, unspecified type R53.83 Active 34640718 Problem Sleep apnea in adult G47.33 Active 20758925 Problem Intermittent drowsiness R40.0 Active 967171053 Problem Burn of stomach, initial encounter T28.2XXA Active 86286827 ALLERGIES No Known Allergies SOCIAL HISTORY No smoking Hx information available PLAN OF CARE VITAL SIGNS MEDICATIONS Medication Instructions Dosage Frequency Start Date End Date Duration Status TENS Unit 1 APPLY TO THE BACK 24h May, Active RESULTS No Results PROCEDURES No Known procedures IMMUNIZATIONS No Known Immunizations
--- OUTSIDE RECORDS SUMMARY | 2017-02-12 08:55 | XMS REPORT | Continuity of Care Document ---
Author Author [facility] Address Unknown Phone Unavailable Allergies Active Description Code Type Severity Reaction Onset Reported/Identified Relationship to Patient Clinical Status Yes Lyrica Drug Allergy N/A N/A 02/21/2011 Yes Lyrica Drug Allergy 02/21/2011 Yes Ambien 10 mg tablet Drug Allergy N/A N/A 02/04/2012 Yes Ambien 10 mg tablet Drug Allergy 02/04/2012 Yes Neurontin Drug Allergy 02/04/2012 Yes Prozac Drug Allergy N/A N/A 07/21/2012 Yes Prozac Drug Allergy 07/21/2012 Yes No Known Drug Allergies [id number] Drug Allergy Unknown N/ A 05/17/2013 Yes fluoxetine [id number] Drug Allergy Mild N/A 11/20/2014 Yes fluticasone [id number] Drug Allergy Unknown DOESN'T WORK 05/09/2015 Yes gabapentin [id number] Drug Allergy Unknown NOT EFFECTIVE 05/09/2015 Yes PROPANOLOL PROPANOLOL Unknown NOT EFFECTIVE 05/09/2015 Yes salmeterol [id number] Drug Allergy Unknown DOESN'T WORK 05/09/2015 Yes zolpidem [id number] Drug Allergy Unknown "MAKES ME ANGRY 05/09/2015 Medications Problems Date Dx Coded Attending Type Code Diagnosis Diagnosed By 03/18/1103 JARRED CASTRO, ROCÍO Ot 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 03/18/1103 JARRED CASTRO, ROCÍO Ot E66.01 MORBID (SEVERE) OBESITY DUE TO EXCESS CA 03/18/1103 JARRED CASTRO, ROCÍO Hays E78.5 HYPERLIPIDEMIA, UNSPECIFIED 03/18/1103 JARRED CASTRO, ROCÍO Hays F31.9 BIPOLAR DISORDER, UNSPECIFIED 03/18/1103 JARRED CASTRO, ROCÍO Ot I10 ESSENTIAL (PRIMARY) HYPERTENSION 03/18/1103 JARRED CASTRO, ROCÍO Hays J44.9 CHRONIC OBSTRUCTIVE PULMONARY DISEASE, U 03/18/1103 ROCÍO STERN MD Ot K21.9 GASTRO-ESOPHAGEAL REFLUX DISEASE WITHOUT 03/18/1103 ROCÍO STERN MD Ot Z68.41 BODY MASS INDEX (BMI) 40.0-44.9, ADULT 03/18/1103 ROCÍO STERN MD Ot Z79.899 OTHER CARE HOME (CURRENT) DRUG THERAPY 12/18/2009 Ot 530.81 12/18/2009 Ot 535.40 03/07/2010 532.30 Acute Duodenal Ulcer Without Hemorrhage Or Perforation Without Obstruction 03/07/2010 724.5 Backache Unspecified 03/07/2010 MUGLORY DDS, LOBO N 532.30 Acute Duodenal Ulcer Without Hemorrhage Or Perforation Without Obstruction 03/07/2010 MIRI DEL VALLES, LOBO N 724.5 Backache Unspecified 03/07/2010 532.30 Acute Duodenal Ulcer Without Hemorrhage Or Perforation Without Obstruction 03/07/2010 724.5 Backache Unspecified 03/07/2010 SALGUERO DO, PHILIPPE K 532.30 Acute Duodenal Ulcer Without Hemorrhage Or Perforation Without Obstruction 03/07/2010 SALGUERO DO, PHILIPPE K 724.5 Backache Unspecified 03/07/2010 SALGUERO DO, PHILIPPE K 532.30 Acute Duodenal Ulcer Without Hemorrhage Or Perforation Without Obstruction 03/07/2010 SALGUERO DO, PHILIPPE K 724.5 Backache Unspecified 03/07/2010 SALGUERO DO, PHILIPPE K 532.30 Acute Duodenal Ulcer Without Hemorrhage Or Perforation Without Obstruction 03/07/2010 SALGUERO DO, PHILIPPE K 724.5 Backache Unspecified 03/07/2010 532.30 Acute Duodenal Ulcer Without Hemorrhage Or Perforation Without Obstruction 03/07/2010 724.5 Backache Unspecified 03/07/2010 532.30 Acute Duodenal Ulcer Without Hemorrhage Or Perforation Without Obstruction 03/07/2010 724.5 Backache Unspecified 03/07/2010 532.30 Acute Duodenal Ulcer Without Hemorrhage Or Perforation Without Obstruction 03/07/2010 724.5 Backache Unspecified 03/07/2010 532.30 Acute Duodenal Ulcer Without Hemorrhage Or Perforation Without Obstruction 03/07/2010 724.5 Backache Unspecified 03/07/2010 532.30 Acute Duodenal Ulcer Without Hemorrhage Or Perforation Without Obstruction 03/07/2010 724.5 Backache Unspecified 03/07/2010 532.30 Acute Duodenal Ulcer Without Hemorrhage Or Perforation Without Obstruction 03/07/2010 724.5 Backache Unspecified 03/07/2010 SALGUERO DO, PHILIPPE K 532.30 Acute Duodenal Ulcer Without Hemorrhage Or Perforation Without Obstruction 03/07/2010 SALGUERO DO, PHILIPPE K 724.5 Backache Unspecified 03/07/2010 532.30 Acute Duodenal Ulcer Without Hemorrhage Or Perforation Without Obstruction 03/07/2010 724.5 Backache Unspecified 03/07/2010 532.30 Acute Duodenal Ulcer Without Hemorrhage Or Perforation Without Obstruction 03/07/2010 724.5 Backache Unspecified 03/07/2010 SALGUERO DO, PHILIPPE K 532.30 Acute Duodenal Ulcer Without Hemorrhage Or Perforation Without Obstruction 03/07/2010 SALGUERO DO, PHILIPPE K 724.5 Backache Unspecified 03/07/2010 SALGUERO DO, PHILIPPE K 532.30 Acute Duodenal Ulcer Without Hemorrhage Or Perforation Without Obstruction 03/07/2010 SAGLUERO DO, PHILIPPE K 724.5 Backache Unspecified 03/07/2010 SALGUERO DO, PHILIPPE K 532.30 Acute Duodenal Ulcer Without Hemorrhage Or Perforation Without Obstruction 03/07/2010 SALGUERO DO, PHILIPPE K 724.5 Backache Unspecified 03/07/2010 SALGUERO DO, PHILIPPE K 532.30 Acute Duodenal Ulcer Without Hemorrhage Or Perforation Without Obstruction 03/07/2010 SALGUERO DO, PHILIPPE K 724.5 Backache Unspecified 03/07/2010 SALGUERO DO, PHILIPPE K 532.30 Acute Duodenal Ulcer Without Hemorrhage Or Perforation Without Obstruction 03/07/2010 SALGUERO DO, PHILIPPE K 724.5 Backache Unspecified 03/07/2010 SALGUERO DO, PHILIPPE K 532.30 Acute Duodenal Ulcer Without Hemorrhage Or Perforation Without Obstruction 03/07/2010 SALGUERO DO, PHILIPPE K 724.5 Backache Unspecified 03/07/2010 SALGUERO DO, PHILIPPE K 532.30 Acute Duodenal Ulcer Without Hemorrhage Or Perforation Without Obstruction 03/07/2010 SALGUERO DO, PHILIPPE K 724.5 Backache Unspecified 03/07/2010 SALGUERO DO, PHILIPPE K 532.30 Acute Duodenal Ulcer Without Hemorrhage Or Perforation Without Obstruction 03/07/2010 SALGUERO DO, PHILIPPE K 724.5 Backache Unspecified 03/07/2010 SALGUERO DO, PHILIPPE K 532.30 Acute Duodenal Ulcer Without Hemorrhage Or Perforation Without Obstruction 03/07/2010 SALGUERO DO, PHILIPPE K 724.5 Backache Unspecified 03/07/2010 WHITE DDS, DEEDEE J 532.30 Acute Duodenal Ulcer Without Hemorrhage Or Perforation Without Obstruction 03/07/2010 WHITE DDS, DEEDEE J 724.5 Backache Unspecified 03/07/2010 MAEVE NARAYANAN PA-C 532.30 Acute Duodenal Ulcer Without Hemorrhage Or Perforation Without Obstruction 03/07/2010 MAEVE NARAYANAN PA-C M 724.5 Backache Unspecified 03/07/2010 SALGUERO DO, PHILIPPE K 532.30 Acute Duodenal Ulcer Without Hemorrhage Or Perforation Without Obstruction 03/07/2010 SALGUERO DO, PHILIPPE K 724.5 Backache Unspecified 03/07/2010 WHITE DDS, DEEDEE J 532.30 Acute Duodenal Ulcer Without Hemorrhage Or Perforation Without Obstruction 03/07/2010 WHITE DDS, DEEDEE J 724.5 Backache Unspecified 03/07/2010 JUAREZ LUND APRNA J 532.30 Acute Duodenal Ulcer Without Hemorrhage Or Perforation Without Obstruction 03/07/2010 ASHELY SPANGLERN BOY J 724.5 Backache Unspecified 03/07/2010 SALGUERO DO, PHILIPPE K 532.30 Acute Duodenal Ulcer Without Hemorrhage Or Perforation Without Obstruction 03/07/2010 SALGUERO DO, PHILIPPE K 724.5 Backache Unspecified 03/07/2010 SALGUERO DO, PHILIPPE K 532.30 Acute Duodenal Ulcer Without Hemorrhage Or Perforation Without Obstruction 03/07/2010 SALGUERO DO, PHILIPPE K 724.5 Backache Unspecified 03/07/2010 JUAREZ LUND APRNA J 532.30 Acute Duodenal Ulcer Without Hemorrhage Or Perforation Without Obstruction 03/07/2010 ASHELY SPANGLERN BOY J 724.5 Backache Unspecified 03/07/2010 WHITE DDS, DEEDEE J 532.30 Acute Duodenal Ulcer Without Hemorrhage Or Perforation Without Obstruction 03/07/2010 WHITE DDS, DEEDEE J 724.5 Backache Unspecified 03/07/2010 WHITE DDS, DEEDEE J 532.30 Acute Duodenal Ulcer Without Hemorrhage Or Perforation Without Obstruction 03/07/2010 WHITE DDS, DEEDEE J 724.5 Backache Unspecified 03/07/2010 SALGUERO DO, PHILIPPE K 532.30 Acute Duodenal Ulcer Without Hemorrhage Or Perforation Without Obstruction 03/07/2010 SALGUERO DO, PHILIPPE K 724.5 Backache Unspecified 03/07/2010 ASHELY VASQUES BOY J 532.30 Acute Duodenal Ulcer Without Hemorrhage Or Perforation Without Obstruction 03/07/2010 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, BOY J 724.5 Backache Unspecified 03/07/2010 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, BOY J 532.30 Acute Duodenal Ulcer Without Hemorrhage Or Perforation Without Obstruction 03/07/2010 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, OBY J 724.5 Backache Unspecified 03/07/2010 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, BOY J 532.30 Acute Duodenal Ulcer Without Hemorrhage Or Perforation Without Obstruction 03/07/2010 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, BOY J 724.5 Backache Unspecified 03/07/2010 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, BOY J 532.30 Acute Duodenal Ulcer Without Hemorrhage Or Perforation Without Obstruction 03/07/2010 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, BOY J 724.5 Backache Unspecified 03/07/2010 SALGUERO DO, PHILIPPE K 532.30 Acute Duodenal Ulcer Without Hemorrhage Or Perforation Without Obstruction 03/07/2010 SALGUERO DO, PHILIPPE K 724.5 Backache Unspecified 03/07/2010 SALGUERO DO, PHILIPPE K 532.30 Acute Duodenal Ulcer Without Hemorrhage Or Perforation Without Obstruction 03/07/2010 SALGUERO DO, PHILIPPE K 724.5 Backache Unspecified 03/07/2010 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, BOY J 532.30 Acute Duodenal Ulcer Without Hemorrhage Or Perforation Without Obstruction 03/07/2010 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, BOY J 724.5 Backache Unspecified 03/07/2010 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, BOY J 532.30 Acute Duodenal Ulcer Without Hemorrhage Or Perforation Without Obstruction 03/07/2010 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, BOY J 724.5 Backache Unspecified 03/07/2010 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, BOY J 532.30 Acute Duodenal Ulcer Without Hemorrhage Or Perforation Without Obstruction 03/07/2010 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, BOY J 724.5 Backache Unspecified 03/07/2010 SALGUERO DO, PHILIPPE K 532.30 Acute Duodenal Ulcer Without Hemorrhage Or Perforation Without Obstruction 03/07/2010 SALGUERO DO, PHILIPPE K 724.5 Backache Unspecified 03/07/2010 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, OBY J 532.30 Acute Duodenal Ulcer Without Hemorrhage Or Perforation Without Obstruction 03/07/2010 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, BOY J 724.5 Backache Unspecified 03/07/2010 [facility] Acute Duodenal Ulcer Without Hemorrhage Or Perforation Without Obstruction 03/07/2010 [facility], JACKIE R 724.5 Backache Unspecified 03/07/2010 SALGUERO DO, PHILIPPE K 532.30 Acute Duodenal Ulcer Without Hemorrhage Or Perforation Without Obstruction 03/07/2010 SALGUERO DO, PHILIPPE K 724.5 Backache Unspecified 03/07/2010 SALGUERO DO, PHILIPPE K 532.30 Acute Duodenal Ulcer Without Hemorrhage Or Perforation Without Obstruction 03/07/2010 SALGUEOR DO, PHILIPPE K 724.5 Backache Unspecified 03/07/2010 MOY GROCERY DELIVERER, CHRIS A 532.30 Acute Duodenal Ulcer Without Hemorrhage Or Perforation Without Obstruction 03/07/2010 MOY GROCERY DELIVERER, CHRIS A 724.5 Backache Unspecified 03/07/2010 SALGUERO DO, PHILIPPE K 532.30 Acute Duodenal Ulcer Without Hemorrhage Or Perforation Without Obstruction 03/07/2010 SALGUERO DO, PHILIPPE K 724.5 Backache Unspecified 03/07/2010 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, BOY J 532.30 Acute Duodenal Ulcer Without Hemorrhage Or Perforation Without Obstruction 03/07/2010 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, BOY J 724.5 Backache Unspecified 03/07/2010 SALGUERO DO, PHILIPPE K 532.30 Acute Duodenal Ulcer Without Hemorrhage Or Perforation Without Obstruction 03/07/2010 SALGUERO DO, PHILIPPE K 724.5 Backache Unspecified 03/25/2010 314.00 ATTENTION DEFICIT DISORDER WITHOUT HYPERACTIVITY 03/25/2010 333.94 RESTLESS LEGS SYNDROME (RLS) 03/25/2010 715.00 OSTEOARTHROSIS GENERALIZED INVOLVING UNSPECIFIED SITE 03/25/2010 MUOGHALU DDS, LOBO N 314.00 ATTENTION DEFICIT DISORDER WITHOUT HYPERACTIVITY 03/25/2010 MUOGHALU DDS, LOBO N 333.94 RESTLESS LEGS SYNDROME (RLS) 03/25/2010 MUOGHALU DDS, LOBO N 715.00 OSTEOARTHROSIS GENERALIZED INVOLVING UNSPECIFIED SITE 03/25/2010 314.00 ATTENTION DEFICIT DISORDER WITHOUT HYPERACTIVITY 03/25/2010 333.94 RESTLESS LEGS SYNDROME (RLS) 03/25/2010 715.00 OSTEOARTHROSIS GENERALIZED INVOLVING UNSPECIFIED SITE 03/25/2010 SALGUERO DO, PHILIPPE K 314.00 ATTENTION DEFICIT DISORDER WITHOUT HYPERACTIVITY 03/25/2010 SALGUERO DO, PHILIPPE K 333.94 RESTLESS LEGS SYNDROME (RLS) 03/25/2010 SALGUERO DO, PHILIPPE K 715.00 OSTEOARTHROSIS GENERALIZED INVOLVING UNSPECIFIED SITE 03/25/2010 SALGUERO DO, PHILIPPE K 314.00 ATTENTION DEFICIT DISORDER WITHOUT HYPERACTIVITY 03/25/2010 SALGUERO DO, PHILIPPE K 333.94 RESTLESS LEGS SYNDROME (RLS) 03/25/2010 SALGUERO DO, PHILIPPE K 715.00 OSTEOARTHROSIS GENERALIZED INVOLVING UNSPECIFIED SITE 03/25/2010 SALGUERO DO, PHILIPPE K 314.00 ATTENTION DEFICIT DISORDER WITHOUT HYPERACTIVITY 03/25/2010 SALGUERO DO PHILIPPE K 333.94 RESTLESS LEGS SYNDROME (RLS) 03/25/2010 SALGUERO DO, PHILIPPE K 715.00 OSTEOARTHROSIS GENERALIZED INVOLVING UNSPECIFIED SITE 03/25/2010 314.00 ATTENTION DEFICIT DISORDER WITHOUT HYPERACTIVITY 03/25/2010 333.94 RESTLESS LEGS SYNDROME (RLS) 03/25/2010 715.00 OSTEOARTHROSIS GENERALIZED INVOLVING UNSPECIFIED SITE 03/25/2010 314.00 ATTENTION DEFICIT DISORDER WITHOUT HYPERACTIVITY 03/25/2010 333.94 RESTLESS LEGS SYNDROME (RLS) 03/25/2010 715.00 OSTEOARTHROSIS GENERALIZED INVOLVING UNSPECIFIED SITE 03/25/2010 314.00 ATTENTION DEFICIT DISORDER WITHOUT HYPERACTIVITY 03/25/2010 333.94 RESTLESS LEGS SYNDROME (RLS) 03/25/2010 715.00 OSTEOARTHROSIS GENERALIZED INVOLVING UNSPECIFIED SITE 03/25/2010 314.00 ATTENTION DEFICIT DISORDER WITHOUT HYPERACTIVITY 03/25/2010 333.94 RESTLESS LEGS SYNDROME (RLS) 03/25/2010 715.00 OSTEOARTHROSIS GENERALIZED INVOLVING UNSPECIFIED SITE 03/25/2010 314.00 ATTENTION DEFICIT DISORDER WITHOUT HYPERACTIVITY 03/25/2010 333.94 RESTLESS LEGS SYNDROME (RLS) 03/25/2010 715.00 OSTEOARTHROSIS GENERALIZED INVOLVING UNSPECIFIED SITE 03/25/2010 314.00 ATTENTION DEFICIT DISORDER WITHOUT HYPERACTIVITY 03/25/2010 333.94 RESTLESS LEGS SYNDROME (RLS) 03/25/2010 715.00 OSTEOARTHROSIS GENERALIZED INVOLVING UNSPECIFIED SITE 03/25/2010 SALGUERO DO, PHILIPPE K 314.00 ATTENTION DEFICIT DISORDER WITHOUT HYPERACTIVITY 03/25/2010 SALGUERO DO PHILIPPE K 333.94 RESTLESS LEGS SYNDROME (RLS) 03/25/2010 SALGUERO DO, PHILIPPE K 715.00 OSTEOARTHROSIS GENERALIZED INVOLVING UNSPECIFIED SITE 03/25/2010 314.00 ATTENTION DEFICIT DISORDER WITHOUT HYPERACTIVITY 03/25/2010 333.94 RESTLESS LEGS SYNDROME (RLS) 03/25/2010 715.00 OSTEOARTHROSIS GENERALIZED INVOLVING UNSPECIFIED SITE 03/25/2010 314.00 ATTENTION DEFICIT DISORDER WITHOUT HYPERACTIVITY 03/25/2010 333.94 RESTLESS LEGS SYNDROME (RLS) 03/25/2010 715.00 OSTEOARTHROSIS GENERALIZED INVOLVING UNSPECIFIED SITE 03/25/2010 SALGUERO DO, PHILIPPE K 314.00 ATTENTION DEFICIT DISORDER WITHOUT HYPERACTIVITY 03/25/2010 SALGUERO DO, PHILIPPE K 333.94 RESTLESS LEGS SYNDROME (RLS) 03/25/2010 SALGUERO DO, PHILIPPE K 715.00 OSTEOARTHROSIS GENERALIZED INVOLVING UNSPECIFIED SITE 03/25/2010 SALGUERO DO, PHILIPPE K 314.00 ATTENTION DEFICIT DISORDER WITHOUT HYPERACTIVITY 03/25/2010 SALGUERO DO, PHILIPPE K 333.94 RESTLESS LEGS SYNDROME (RLS) 03/25/2010 SALGUERO DO, PHILIPPE K 715.00 OSTEOARTHROSIS GENERALIZED INVOLVING UNSPECIFIED SITE 03/25/2010 SALGUERO DO, PHILIPPE K 314.00 ATTENTION DEFICIT DISORDER WITHOUT HYPERACTIVITY 03/25/2010 SALGUERO DO, PHILIPPE K 333.94 RESTLESS LEGS SYNDROME (RLS) 03/25/2010 SALGUERO DO, PHILIPPE K 715.00 OSTEOARTHROSIS GENERALIZED INVOLVING UNSPECIFIED SITE 03/25/2010 SALGUERO DO, PHILIPPE K 314.00 ATTENTION DEFICIT DISORDER WITHOUT HYPERACTIVITY 03/25/2010 SALGUERO DO, PHILIPPE K 333.94 RESTLESS LEGS SYNDROME (RLS) 03/25/2010 SALGUERO DO, PHILIPPE K 715.00 OSTEOARTHROSIS GENERALIZED INVOLVING UNSPECIFIED SITE 03/25/2010 SALGUERO DO, PHILIPPE K 314.00 ATTENTION DEFICIT DISORDER WITHOUT HYPERACTIVITY 03/25/2010 SALGUERO DO, PHILIPPE K 333.94 RESTLESS LEGS SYNDROME (RLS) 03/25/2010 SALGUERO DO, PHILIPPE K 715.00 OSTEOARTHROSIS GENERALIZED INVOLVING UNSPECIFIED SITE 03/25/2010 SALGUERO DO, PHILIPPE K 314.00 ATTENTION DEFICIT DISORDER WITHOUT HYPERACTIVITY 03/25/2010 SALGUERO DO, PHILIPPE K 333.94 RESTLESS LEGS SYNDROME (RLS) 03/25/2010 SALGUERO DO, PHILIPPE K 715.00 OSTEOARTHROSIS GENERALIZED INVOLVING UNSPECIFIED SITE 03/25/2010 SALGUERO DO, PHILIPPE K 314.00 ATTENTION DEFICIT DISORDER WITHOUT HYPERACTIVITY 03/25/2010 SALGUERO DO, PHILIPPE K 333.94 RESTLESS LEGS SYNDROME (RLS) 03/25/2010 SALGUERO DO, PHILIPPE K 715.00 OSTEOARTHROSIS GENERALIZED INVOLVING UNSPECIFIED SITE 03/25/2010 SALGUERO DO, PHILIPPE K 314.00 ATTENTION DEFICIT DISORDER WITHOUT HYPERACTIVITY 03/25/2010 SALGUERO DO, PHILIPPE K 333.94 RESTLESS LEGS SYNDROME (RLS) 03/25/2010 SALGUERO DO, PHILIPPE K 715.00 OSTEOARTHROSIS GENERALIZED INVOLVING UNSPECIFIED SITE 03/25/2010 SALGUERO DO, PHILIPPE K 314.00 ATTENTION DEFICIT DISORDER WITHOUT HYPERACTIVITY 03/25/2010 SALGUERO DO, PHILIPPE K 333.94 RESTLESS LEGS SYNDROME (RLS) 03/25/2010 SALGUERO DO, PHILIPPE K 715.00 OSTEOARTHROSIS GENERALIZED INVOLVING UNSPECIFIED SITE 03/25/2010 WHITE DDS, DEEDEE J 314.00 ATTENTION DEFICIT DISORDER WITHOUT HYPERACTIVITY 03/25/2010 HAN DEL VALLESDEEDEE J 333.94 RESTLESS LEGS SYNDROME (RLS) 03/25/2010 HAN DEL VALLESDEEDEE J 715.00 OSTEOARTHROSIS GENERALIZED INVOLVING UNSPECIFIED SITE 03/25/2010 MAEVE NARAYANAN PA-C 314.00 ATTENTION DEFICIT DISORDER WITHOUT HYPERACTIVITY 03/25/2010 MAEVE NARAYANAN PA-C 333.94 RESTLESS LEGS SYNDROME (RLS) 03/25/2010 MAEVE NARAYANAN PA-C 715.00 OSTEOARTHROSIS GENERALIZED INVOLVING UNSPECIFIED SITE 03/25/2010 SALGUERO DO, PHILIPPE K 314.00 ATTENTION DEFICIT DISORDER WITHOUT HYPERACTIVITY 03/25/2010 SALGUERO DO, PHILIPPE K 333.94 RESTLESS LEGS SYNDROME (RLS) 03/25/2010 SALGUERO DO, PHILIPPE K 715.00 OSTEOARTHROSIS GENERALIZED INVOLVING UNSPECIFIED SITE 03/25/2010 HAN DDS, DEEDEE J 314.00 ATTENTION DEFICIT DISORDER WITHOUT HYPERACTIVITY 03/25/2010 HAN DEL VALLESDEEEDE J 333.94 RESTLESS LEGS SYNDROME (RLS) 03/25/2010 WHITE DDS, DEEDEE J 715.00 OSTEOARTHROSIS GENERALIZED INVOLVING UNSPECIFIED SITE 03/25/2010 BOY LUND APRN J 314.00 ATTENTION DEFICIT DISORDER WITHOUT HYPERACTIVITY 03/25/2010 BOY LUND APRN J 333.94 RESTLESS LEGS SYNDROME (RLS) 03/25/2010 JUAREZ LUND APRNA J 715.00 OSTEOARTHROSIS GENERALIZED INVOLVING UNSPECIFIED SITE 03/25/2010 SALGUERO DO, PHILIPPE K 314.00 ATTENTION DEFICIT DISORDER WITHOUT HYPERACTIVITY 03/25/2010 SALGUERO DO, PHILIPPE K 333.94 RESTLESS LEGS SYNDROME (RLS) 03/25/2010 SALGUERO DO, PHILIPPE K 715.00 OSTEOARTHROSIS GENERALIZED INVOLVING UNSPECIFIED SITE 03/25/2010 SALGUERO DO, PHILIPPE K 314.00 ATTENTION DEFICIT DISORDER WITHOUT HYPERACTIVITY 03/25/2010 SALGUERO DO, PHILIPPE K 333.94 RESTLESS LEGS SYNDROME (RLS) 03/25/2010 SALGUERO DO, PHILIPPE K 715.00 OSTEOARTHROSIS GENERALIZED INVOLVING UNSPECIFIED SITE 03/25/2010 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, BOY J 314.00 ATTENTION DEFICIT DISORDER WITHOUT HYPERACTIVITY 03/25/2010 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, BOY J 333.94 RESTLESS LEGS SYNDROME (RLS) 03/25/2010 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, BOY J 715.00 OSTEOARTHROSIS GENERALIZED INVOLVING UNSPECIFIED SITE 03/25/2010 WHITE DDS, DEEDEE J 314.00 ATTENTION DEFICIT DISORDER WITHOUT HYPERACTIVITY 03/25/2010 WHITE DDS, DEEDEE J 333.94 RESTLESS LEGS SYNDROME (RLS) 03/25/2010 WHITE DDS, DEEDEE J 715.00 OSTEOARTHROSIS GENERALIZED INVOLVING UNSPECIFIED SITE 03/25/2010 WHITE DDS, DEEDEE J 314.00 ATTENTION DEFICIT DISORDER WITHOUT HYPERACTIVITY 03/25/2010 WHITE DDS, DEEDEE J 333.94 RESTLESS LEGS SYNDROME (RLS) 03/25/2010 WHITE DDS, DEEDEE J 715.00 OSTEOARTHROSIS GENERALIZED INVOLVING UNSPECIFIED SITE 03/25/2010 SALGUERO DO, PHILIPPE K 314.00 ATTENTION DEFICIT DISORDER WITHOUT HYPERACTIVITY 03/25/2010 SALGUERO DO, PHILIPPE K 333.94 RESTLESS LEGS SYNDROME (RLS) 03/25/2010 SALGUERO DO, PHILIPPE K 715.00 OSTEOARTHROSIS GENERALIZED INVOLVING UNSPECIFIED SITE 03/25/2010 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, BOY J 314.00 ATTENTION DEFICIT DISORDER WITHOUT HYPERACTIVITY 03/25/2010 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, BOY J 333.94 RESTLESS LEGS SYNDROME (RLS) 03/25/2010 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, BOY J 715.00 OSTEOARTHROSIS GENERALIZED INVOLVING UNSPECIFIED SITE 03/25/2010 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, BOY J 314.00 ATTENTION DEFICIT DISORDER WITHOUT HYPERACTIVITY 03/25/2010 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, BOY J 333.94 RESTLESS LEGS SYNDROME (RLS) 03/25/2010 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, BOY J 715.00 OSTEOARTHROSIS GENERALIZED INVOLVING UNSPECIFIED SITE 03/25/2010 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, BOY J 314.00 ATTENTION DEFICIT DISORDER WITHOUT HYPERACTIVITY 03/25/2010 JUAREZ LUND APRNA J 333.94 RESTLESS LEGS SYNDROME (RLS) 03/25/2010 JUAREZ LUND APRNA J 715.00 OSTEOARTHROSIS GENERALIZED INVOLVING UNSPECIFIED SITE 03/25/2010 ASHELY VASQUES, BOY J 314.00 ATTENTION DEFICIT DISORDER WITHOUT HYPERACTIVITY 03/25/2010 ASHELY VASQUES BOY J 333.94 RESTLESS LEGS SYNDROME (RLS) 03/25/2010 ASHELY VASQUES BOY J 715.00 OSTEOARTHROSIS GENERALIZED INVOLVING UNSPECIFIED SITE 03/25/2010 SALGUERO DO, PHILIPPE K 314.00 ATTENTION DEFICIT DISORDER WITHOUT HYPERACTIVITY 03/25/2010 SALGUERO DO, PHILIPPE K 333.94 RESTLESS LEGS SYNDROME (RLS) 03/25/2010 SALGUERO DO, PHILIPPE K 715.00 OSTEOARTHROSIS GENERALIZED INVOLVING UNSPECIFIED SITE 03/25/2010 SALGUERO DO, PHILIPPE K 314.00 ATTENTION DEFICIT DISORDER WITHOUT HYPERACTIVITY 03/25/2010 SALGUERO DO, PHILIPPE K 333.94 RESTLESS LEGS SYNDROME (RLS) 03/25/2010 SALGUERO DO, PHILIPPE K 715.00 OSTEOARTHROSIS GENERALIZED INVOLVING UNSPECIFIED SITE 03/25/2010 JUAREZ LUND APRNA J 314.00 ATTENTION DEFICIT DISORDER WITHOUT HYPERACTIVITY 03/25/2010 JUAREZ LUND APRNA J 333.94 RESTLESS LEGS SYNDROME (RLS) 03/25/2010 ASHELY VASQUES BOY J 715.00 OSTEOARTHROSIS GENERALIZED INVOLVING UNSPECIFIED SITE 03/25/2010 BECKY LUND APRNINDA J 314.00 ATTENTION DEFICIT DISORDER WITHOUT HYPERACTIVITY 03/25/2010 JUAREZ LUND APRNA J 333.94 RESTLESS LEGS SYNDROME (RLS) 03/25/2010 BECKY LUND APRNINDA J 715.00 OSTEOARTHROSIS GENERALIZED INVOLVING UNSPECIFIED SITE 03/25/2010 BECKY LUND APRNINDA J 314.00 ATTENTION DEFICIT DISORDER WITHOUT HYPERACTIVITY 03/25/2010 JUAREZ LUND APRNA J 333.94 RESTLESS LEGS SYNDROME (RLS) 03/25/2010 ASHELY VASQUES BOY J 715.00 OSTEOARTHROSIS GENERALIZED INVOLVING UNSPECIFIED SITE 03/25/2010 SALGUERO DO, PHILIPPE K 314.00 ATTENTION DEFICIT DISORDER WITHOUT HYPERACTIVITY 03/25/2010 SALGUERO DO, PHILIPPE K 333.94 RESTLESS LEGS SYNDROME (RLS) 03/25/2010 SALGUERO DO, PHILIPPE K 715.00 OSTEOARTHROSIS GENERALIZED INVOLVING UNSPECIFIED SITE 03/25/2010 BOY LUDN APRN J 314.00 ATTENTION DEFICIT DISORDER WITHOUT HYPERACTIVITY 03/25/2010 BOY LUND APRN 333.94 RESTLESS LEGS SYNDROME (RLS) 03/25/2010 BOY LUND APRN J 715.00 OSTEOARTHROSIS GENERALIZED INVOLVING UNSPECIFIED SITE 03/25/2010 [facility], JACKIE R 314.00 ATTENTION DEFICIT DISORDER WITHOUT HYPERACTIVITY 03/25/2010 IVET [facility], JACKIE R 333.94 RESTLESS LEGS SYNDROME (RLS) 03/25/2010 IVET [facility], JACKIE R 715.00 OSTEOARTHROSIS GENERALIZED INVOLVING UNSPECIFIED SITE 03/25/2010 SALGUERO DO, PHILIPPE K 314.00 ATTENTION DEFICIT DISORDER WITHOUT HYPERACTIVITY 03/25/2010 SALGUERO DO, PHILIPPE K 333.94 RESTLESS LEGS SYNDROME (RLS) 03/25/2010 SALGUERO DO, PHILIPPE K 715.00 OSTEOARTHROSIS GENERALIZED INVOLVING UNSPECIFIED SITE 03/25/2010 SALGUERO DO, PHILIPPE K 314.00 ATTENTION DEFICIT DISORDER WITHOUT HYPERACTIVITY 03/25/2010 SALGUERO DO, PHILIPPE K 333.94 RESTLESS LEGS SYNDROME (RLS) 03/25/2010 SALGUERO DO, PHILIPPE K 715.00 OSTEOARTHROSIS GENERALIZED INVOLVING UNSPECIFIED SITE 03/25/2010 CHRIS WINTER APRN A 314.00 ATTENTION DEFICIT DISORDER WITHOUT HYPERACTIVITY 03/25/2010 MOY VASQUES CHRIS A 333.94 RESTLESS LEGS SYNDROME (RLS) 03/25/2010 MOY VASQUES CHRIS A 715.00 OSTEOARTHROSIS GENERALIZED INVOLVING UNSPECIFIED SITE 03/25/2010 SALGUERO DO, PHILIPPE K 314.00 ATTENTION DEFICIT DISORDER WITHOUT HYPERACTIVITY 03/25/2010 SALGUERO DO, PHILIPPE K 333.94 RESTLESS LEGS SYNDROME (RLS) 03/25/2010 SALGUERO DO, PHILIPPE K 715.00 OSTEOARTHROSIS GENERALIZED INVOLVING UNSPECIFIED SITE 03/25/2010 BOY LUND APRN J 314.00 ATTENTION DEFICIT DISORDER WITHOUT HYPERACTIVITY 03/25/2010 BOY LUND APRN J 333.94 RESTLESS LEGS SYNDROME (RLS) 03/25/2010 BOY LUND APRN J 715.00 OSTEOARTHROSIS GENERALIZED INVOLVING UNSPECIFIED SITE 03/25/2010 SALGUERO DO, PHILIPPE K 314.00 ATTENTION DEFICIT DISORDER WITHOUT HYPERACTIVITY 03/25/2010 PHILIPPE SALGUERO DO 333.94 RESTLESS LEGS SYNDROME (RLS) 03/25/2010 PHILIPPE SALGUERO DO 715.00 OSTEOARTHROSIS GENERALIZED INVOLVING UNSPECIFIED SITE 05/26/2010 333.85 TARDIVE DYSKINESIA DRUG-INDUCED 05/26/2010 368.9 Unspecified Visual Disturbance 05/26/2010 MUOGHALU DDS, LOBO N 333.85 TARDIVE DYSKINESIA DRUG-INDUCED 05/26/2010 MUOGHALU DDS, LOBO N 368.9 Unspecified Visual Disturbance 05/26/2010 333.85 TARDIVE DYSKINESIA DRUG-INDUCED 05/26/2010 368.9 Unspecified Visual Disturbance 05/26/2010 PHILIPPE SALGUERO DO 333.85 TARDIVE DYSKINESIA DRUG-INDUCED 05/26/2010 PHILIPPE SALGUERO DO 368.9 Unspecified Visual Disturbance 05/26/2010 PHILIPPE SALGUERO DO 333.85 TARDIVE DYSKINESIA DRUG-INDUCED 05/26/2010 PHILIPPE SALGUERO DO 368.9 Unspecified Visual Disturbance 05/26/2010 PHILIPPE SALGUERO DO 333.85 TARDIVE DYSKINESIA DRUG-INDUCED 05/26/2010 PHILIPPE SALGUERO DO 368.9 Unspecified Visual Disturbance 05/26/2010 333.85 TARDIVE DYSKINESIA DRUG-INDUCED 05/26/2010 368.9 Unspecified Visual Disturbance 05/26/2010 333.85 TARDIVE DYSKINESIA DRUG-INDUCED 05/26/2010 368.9 Unspecified Visual Disturbance 05/26/2010 333.85 TARDIVE DYSKINESIA DRUG-INDUCED 05/26/2010 368.9 Unspecified Visual Disturbance 05/26/2010 333.85 TARDIVE DYSKINESIA DRUG-INDUCED 05/26/2010 368.9 Unspecified Visual Disturbance 05/26/2010 333.85 TARDIVE DYSKINESIA DRUG-INDUCED 05/26/2010 368.9 Unspecified Visual Disturbance 05/26/2010 333.85 TARDIVE DYSKINESIA DRUG-INDUCED 05/26/2010 368.9 Unspecified Visual Disturbance 05/26/2010 PHILIPPE SALGUERO DO 333.85 TARDIVE DYSKINESIA DRUG-INDUCED 05/26/2010 PHILIPPE SALGUERO DO 368.9 Unspecified Visual Disturbance 05/26/2010 333.85 TARDIVE DYSKINESIA DRUG-INDUCED 05/26/2010 368.9 Unspecified Visual Disturbance 05/26/2010 333.85 TARDIVE DYSKINESIA DRUG-INDUCED 05/26/2010 368.9 Unspecified Visual Disturbance 05/26/2010 SALGUERO DO, PHILIPPE K 333.85 TARDIVE DYSKINESIA DRUG-INDUCED 05/26/2010 SALGUERO DO, PHILIPPE K 368.9 Unspecified Visual Disturbance 05/26/2010 SALGUERO DO, PHILIPPE K 333.85 TARDIVE DYSKINESIA DRUG-INDUCED 05/26/2010 SALGUERO DO, PHILIPPE K 368.9 Unspecified Visual Disturbance 05/26/2010 SALGUERO DO, PHILIPPE K 333.85 TARDIVE DYSKINESIA DRUG-INDUCED 05/26/2010 SALGUERO DO, PHILIPPE K 368.9 Unspecified Visual Disturbance 05/26/2010 SALGUERO DO, PHILIPPE K 333.85 TARDIVE DYSKINESIA DRUG-INDUCED 05/26/2010 SALGUERO DO, PHILIPPE K 368.9 Unspecified Visual Disturbance 05/26/2010 SALGUERO DO, PHILIPPE K 333.85 TARDIVE DYSKINESIA DRUG-INDUCED 05/26/2010 SALGUERO DO, PHILIPPE K 368.9 Unspecified Visual Disturbance 05/26/2010 SALGUERO DO, PHILIPPE K 333.85 TARDIVE DYSKINESIA DRUG-INDUCED 05/26/2010 SALGUERO DO, PHILIPPE K 368.9 Unspecified Visual Disturbance 05/26/2010 SALGUERO DO, PHILIPPE K 333.85 TARDIVE DYSKINESIA DRUG-INDUCED 05/26/2010 SALGUERO DO, PHILIPPE K 368.9 Unspecified Visual Disturbance 05/26/2010 SALGUERO DO, PHILIPPE K 333.85 TARDIVE DYSKINESIA DRUG-INDUCED 05/26/2010 SALGUERO DO, PHILIPPE K 368.9 Unspecified Visual Disturbance 05/26/2010 SALGUERO DO, PHILIPPE K 333.85 TARDIVE DYSKINESIA DRUG-INDUCED 05/26/2010 SALGUERO DO, PHILIPPE K 368.9 Unspecified Visual Disturbance 05/26/2010 WHITE DDS, DEEDEE J 333.85 TARDIVE DYSKINESIA DRUG-INDUCED 05/26/2010 WHITE DDS, DEEDEE J 368.9 Unspecified Visual Disturbance 05/26/2010 MAEVE NARAYANAN PA-C 333.85 TARDIVE DYSKINESIA DRUG-INDUCED 05/26/2010 MAEVE NARAYANAN PA-C 368.9 Unspecified Visual Disturbance 05/26/2010 SALGUERO DO, PHILIPPE K 333.85 TARDIVE DYSKINESIA DRUG-INDUCED 05/26/2010 SALGUERO DO, PHILIPPE K 368.9 Unspecified Visual Disturbance 05/26/2010 WHITE DDS, DEEDEE J 333.85 TARDIVE DYSKINESIA DRUG-INDUCED 05/26/2010 WHITE DDS, DEEDEE J 368.9 Unspecified Visual Disturbance 05/26/2010 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, BOY J 333.85 TARDIVE DYSKINESIA DRUG-INDUCED 05/26/2010 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, BOY J 368.9 Unspecified Visual Disturbance 05/26/2010 SALGUERO DO, PHILIPPE K 333.85 TARDIVE DYSKINESIA DRUG-INDUCED 05/26/2010 SALGUERO DO, PHILIPPE K 368.9 Unspecified Visual Disturbance 05/26/2010 SALGUERO DO, PHILIPPE K 333.85 TARDIVE DYSKINESIA DRUG-INDUCED 05/26/2010 SALGUERO DO, PHILIPPE K 368.9 Unspecified Visual Disturbance 05/26/2010 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, BOY J 333.85 TARDIVE DYSKINESIA DRUG-INDUCED 05/26/2010 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, BOY J 368.9 Unspecified Visual Disturbance 05/26/2010 WHITE DDS, DEEDEE J 333.85 TARDIVE DYSKINESIA DRUG-INDUCED 05/26/2010 WHITE DDS, DEEDEE J 368.9 Unspecified Visual Disturbance 05/26/2010 WHITE DDS, DEEDEE J 333.85 TARDIVE DYSKINESIA DRUG-INDUCED 05/26/2010 WHITE DDS, DEEDEE J 368.9 Unspecified Visual Disturbance 05/26/2010 SALGUERO DO, PHILIPPE K 333.85 TARDIVE DYSKINESIA DRUG-INDUCED 05/26/2010 SALGUERO DO, PHILIPPE K 368.9 Unspecified Visual Disturbance 05/26/2010 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, BOY J 333.85 TARDIVE DYSKINESIA DRUG-INDUCED 05/26/2010 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, BOY J 368.9 Unspecified Visual Disturbance 05/26/2010 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, BOY J 333.85 TARDIVE DYSKINESIA DRUG-INDUCED 05/26/2010 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, BOY J 368.9 Unspecified Visual Disturbance 05/26/2010 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, BOY J 333.85 TARDIVE DYSKINESIA DRUG-INDUCED 05/26/2010 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, BOY J 368.9 Unspecified Visual Disturbance 05/26/2010 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, BOY J 333.85 TARDIVE DYSKINESIA DRUG-INDUCED 05/26/2010 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, BOY J 368.9 Unspecified Visual Disturbance 05/26/2010 SALGUERO DO, PHILIPPE K 333.85 TARDIVE DYSKINESIA DRUG-INDUCED 05/26/2010 SALGUERO DO, PHILIPPE K 368.9 Unspecified Visual Disturbance 05/26/2010 SALGUERO DO, PHILIPPE K 333.85 TARDIVE DYSKINESIA DRUG-INDUCED 05/26/2010 SALGUERO DO, PHILIPPE K 368.9 Unspecified Visual Disturbance 05/26/2010 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, BOY J 333.85 TARDIVE DYSKINESIA DRUG-INDUCED 05/26/2010 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, BOY J 368.9 Unspecified Visual Disturbance 05/26/2010 ASHELY VASQUES, BOY J 333.85 TARDIVE DYSKINESIA DRUG-INDUCED 05/26/2010 ASHELY VASQUES, BOY J 368.9 Unspecified Visual Disturbance 05/26/2010 BECKY LUND APRNINDA J 333.85 TARDIVE DYSKINESIA DRUG-INDUCED 05/26/2010 BECKY LUND APRNINDA J 368.9 Unspecified Visual Disturbance 05/26/2010 SALGUERO DO, PHILIPPE K 333.85 TARDIVE DYSKINESIA DRUG-INDUCED 05/26/2010 SALGUERO DO, PHILIPPE K 368.9 Unspecified Visual Disturbance 05/26/2010 ASHELY VASQUES, BOY J 333.85 TARDIVE DYSKINESIA DRUG-INDUCED 05/26/2010 ASHELY VASQUES, BOY J 368.9 Unspecified Visual Disturbance 05/26/2010 [facility], JACKIE R 333.85 TARDIVE DYSKINESIA DRUG-INDUCED 05/26/2010 [facility], JACKIE R 368.9 Unspecified Visual Disturbance 05/26/2010 SALGUERO DO, PHILIPPE K 333.85 TARDIVE DYSKINESIA DRUG-INDUCED 05/26/2010 SALGUERO DO, PHILIPPE K 368.9 Unspecified Visual Disturbance 05/26/2010 SALGUERO DO, PHILIPPE K 333.85 TARDIVE DYSKINESIA DRUG-INDUCED 05/26/2010 SALGUERO DO, PHILIPPE K 368.9 Unspecified Visual Disturbance 05/26/2010 MOY GROCERY DELIVERER, CHRIS A 333.85 TARDIVE DYSKINESIA DRUG-INDUCED 05/26/2010 MOY GROCERY DELIVERER, CHRIS A 368.9 Unspecified Visual Disturbance 05/26/2010 SALGUERO DO PHILIPPE K 333.85 TARDIVE DYSKINESIA DRUG-INDUCED 05/26/2010 SALGUERO DO PHILIPPE K 368.9 Unspecified Visual Disturbance 05/26/2010 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, BOY J 333.85 TARDIVE DYSKINESIA DRUG-INDUCED 05/26/2010 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, BOY J 368.9 Unspecified Visual Disturbance 05/26/2010 SALGUERO DO PHILIPPE K 333.85 TARDIVE DYSKINESIA DRUG-INDUCED 05/26/2010 SALGUERO DO PHILIPPE K 368.9 Unspecified Visual Disturbance 07/22/2010 625.4 Premenstrual Tension Syndromes 07/22/2010 MIRI DEL VALLES, LOBO N 625.4 Premenstrual Tension Syndromes 07/22/2010 625.4 Premenstrual Tension Syndromes 07/22/2010 NOEMY DOTANISHAA K 625.4 Premenstrual Tension Syndromes 07/22/2010 SALGUERO DO PHILIPPE K 625.4 Premenstrual Tension Syndromes 07/22/2010 TANISHA SALGUERO DOA K 625.4 Premenstrual Tension Syndromes 07/22/2010 625.4 Premenstrual Tension Syndromes 07/22/2010 625.4 Premenstrual Tension Syndromes 07/22/2010 625.4 Premenstrual Tension Syndromes 07/22/2010 625.4 Premenstrual Tension Syndromes 07/22/2010 625.4 Premenstrual Tension Syndromes 07/22/2010 625.4 Premenstrual Tension Syndromes 07/22/2010 NOEMY DOTANISHAA K 625.4 Premenstrual Tension Syndromes 07/22/2010 625.4 Premenstrual Tension Syndromes 07/22/2010 625.4 Premenstrual Tension Syndromes 07/22/2010 SALGUERO DO PHILIPPE K 625.4 Premenstrual Tension Syndromes 07/22/2010 SALGUERO DO PHILIPPE K 625.4 Premenstrual Tension Syndromes 07/22/2010 SALGUERO DO PHILIPPE K 625.4 Premenstrual Tension Syndromes 07/22/2010 SALGUERO DO PHILIPPE K 625.4 Premenstrual Tension Syndromes 07/22/2010 SALGUERO DO PHILIPPE K 625.4 Premenstrual Tension Syndromes 07/22/2010 SALGUERO DO PHILIPPE K 625.4 Premenstrual Tension Syndromes 07/22/2010 SALGUERO DO PHILIPPE K 625.4 Premenstrual Tension Syndromes 07/22/2010 SALGUERO DO, PHILIPPE K 625.4 Premenstrual Tension Syndromes 07/22/2010 SALGUERO DO, PHILIPPE K 625.4 Premenstrual Tension Syndromes 07/22/2010 WHITE DDS, DEEDEE J 625.4 Premenstrual Tension Syndromes 07/22/2010 ORACIO LUNSFORD, MAEVE Pan 625.4 Premenstrual Tension Syndromes 07/22/2010 SALGUERO DO PHILIPPE K 625.4 Premenstrual Tension Syndromes 07/22/2010 WHITE DDS, DEEDEE J 625.4 Premenstrual Tension Syndromes 07/22/2010 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, BOY J 625.4 Premenstrual Tension Syndromes 07/22/2010 SALGUERO DOTANISHAA K 625.4 Premenstrual Tension Syndromes 07/22/2010 SALGUERO DO PHILIPPE K 625.4 Premenstrual Tension Syndromes 07/22/2010 JUAREZ LUND APRNA J 625.4 Premenstrual Tension Syndromes 07/22/2010 HAN DDS, DEEDEE J 625.4 Premenstrual Tension Syndromes 07/22/2010 WHITE DDS, DEEDEE J 625.4 Premenstrual Tension Syndromes 07/22/2010 SALGUERO DO PHILIPPE K 625.4 Premenstrual Tension Syndromes 07/22/2010 JUAREZ LUND APRNA J 625.4 Premenstrual Tension Syndromes 07/22/2010 ASHELY VASQUES BOY J 625.4 Premenstrual Tension Syndromes 07/22/2010 JUAREZ LUND APRNA J 625.4 Premenstrual Tension Syndromes 07/22/2010 ASHELY VASQUES BOY J 625.4 Premenstrual Tension Syndromes 07/22/2010 SALGUERO DOTANISHAA K 625.4 Premenstrual Tension Syndromes 07/22/2010 SALGUERO DO PHILIPPE K 625.4 Premenstrual Tension Syndromes 07/22/2010 ASHELY SPANGLERN BOY J 625.4 Premenstrual Tension Syndromes 07/22/2010 ASHELY SPANGLERN BOY J 625.4 Premenstrual Tension Syndromes 07/22/2010 ASHELY VASQUES BOY J 625.4 Premenstrual Tension Syndromes 07/22/2010 SALGUERO TANISHA OLVERAA K 625.4 Premenstrual Tension Syndromes 07/22/2010 ASHELY VASQUES BOY J 625.4 Premenstrual Tension Syndromes 07/22/2010 [facility]ET [facility], JACKIE Eastman 625.4 Premenstrual Tension Syndromes 07/22/2010 PHILIPPE SALGUERO DO K 625.4 Premenstrual Tension Syndromes 07/22/2010 SALGUERO DO PHILIPPE K 625.4 Premenstrual Tension Syndromes 07/22/2010 MOY VASQUES, CHRIS [place] 625.4 Premenstrual Tension Syndromes 07/22/2010 PHILIPPE SALGUERO DO K 625.4 Premenstrual Tension Syndromes 07/22/2010 BOY LUND APRN 625.4 Premenstrual Tension Syndromes 07/22/2010 SALGUERO , PHILIPPE K 625.4 Premenstrual Tension Syndromes 09/10/2010 706.1 Other Acne 09/10/2010 MIRI JACOBSON, LOBO Curiel 706.1 Other Acne 09/10/2010 706.1 Other Acne 09/10/2010 TANISHA SALGUERO DOA K 706.1 Other Acne 09/10/2010 TANISHA SALGUERO DOA K 706.1 Other Acne 09/10/2010 SALGUERO DO PHILIPPE K 706.1 Other Acne 09/10/2010 706.1 Other Acne 09/10/2010 706.1 Other Acne 09/10/2010 706.1 Other Acne 09/10/2010 706.1 Other Acne 09/10/2010 706.1 Other Acne 09/10/2010 706.1 Other Acne 09/10/2010 SALGUERO DO PHILIPPE K 706.1 Other Acne 09/10/2010 706.1 Other Acne 09/10/2010 706.1 Other Acne 09/10/2010 SALGUERO DO PHILIPPE K 706.1 Other Acne 09/10/2010 SALGUERO DO PHILIPPE K 706.1 Other Acne 09/10/2010 SALGUERO DO, PHILIPPE K 706.1 Other Acne 09/10/2010 SALGUERO DO PHILIPPE K 706.1 Other Acne 09/10/2010 SALGUERO DO PHILIPPE K 706.1 Other Acne 09/10/2010 SALGUERO DO PHILIPPE K 706.1 Other Acne 09/10/2010 SALGUERO DO PHILIPPE K 706.1 Other Acne 09/10/2010 SALGUERO DO PHILIPPE K 706.1 Other Acne 09/10/2010 SALGUERO DO, PHILIPPE K 706.1 Other Acne 09/10/2010 WHITE DDS, DEEDEE J 706.1 Other Acne 09/10/2010 ORACIO LUNSFORD, MAEVE Pan 706.1 Other Acne 09/10/2010 SALGUERO DO, PHILIPPE K 706.1 Other Acne 09/10/2010 WHITE DDS, DEEDEE J 706.1 Other Acne 09/10/2010 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, BOY J 706.1 Other Acne 09/10/2010 SALGUERO DO, PHILIPPE K 706.1 Other Acne 09/10/2010 SALGUERO DO, PHILIPPE K 706.1 Other Acne 09/10/2010 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, BOY J 706.1 Other Acne 09/10/2010 WHITE DDS, DEEDEE J 706.1 Other Acne 09/10/2010 WHITE DDS, DEEDEE J 706.1 Other Acne 09/10/2010 SALGUERO DO, PHILIPPE K 706.1 Other Acne 09/10/2010 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, BOY J 706.1 Other Acne 09/10/2010 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, BOY J 706.1 Other Acne 09/10/2010 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, BOY J 706.1 Other Acne 09/10/2010 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, BOY J 706.1 Other Acne 09/10/2010 SALGUERO DO, PHILIPPE K 706.1 Other Acne 09/10/2010 SALGUERO DO, PHILIPPE K 706.1 Other Acne 09/10/2010 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, BOY J 706.1 Other Acne 09/10/2010 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, BOY J 706.1 Other Acne 09/10/2010 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, BOY J 706.1 Other Acne 09/10/2010 SALGUERO DO, PHILIPPE K 706.1 Other Acne 09/10/2010 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, BOY J 706.1 Other Acne 09/10/2010 IVET DIANE, JACKIE Eastman 706.1 Other Acne 09/10/2010 SALGUERO DO, PHILIPPE K 706.1 Other Acne 09/10/2010 SALGUERO DO, PHILIPPE K 706.1 Other Acne 09/10/2010 CHRIS WINTER APRN 706.1 Other Acne 09/10/2010 SALGUERO DO PHILIPPE K 706.1 Other Acne 09/10/2010 BOY LUND APRN 706.1 Other Acne 09/10/2010 SALGUERO DO, PHILIPPE K 706.1 Other Acne 11/20/2010 278.02 Overweight 11/20/2010 LUIS FERNANDOLamar JACOBSONLOBO Veena 278.02 Overweight 11/20/2010 278.02 Overweight 11/20/2010 SALGUERO DO, PHILIPPE K 278.02 Overweight 11/20/2010 SALGUERO DO, PHILIPPE K 278.02 Overweight 11/20/2010 SALGUERO DO, PIHLIPPE K 278.02 Overweight 11/20/2010 278.02 Overweight 11/20/2010 278.02 Overweight 11/20/2010 278.02 Overweight 11/20/2010 278.02 Overweight 11/20/2010 278.02 Overweight 11/20/2010 278.02 Overweight 11/20/2010 SALGUERO DO, PHILIPPE K 278.02 Overweight 11/20/2010 278.02 Overweight 11/20/2010 278.02 Overweight 11/20/2010 SALGUERO DO, PHILIPPE K 278.02 Overweight 11/20/2010 SALGUERO DO, PHILIPPE K 278.02 Overweight 11/20/2010 SALGUERO DO, PHILIPPE K 278.02 Overweight 11/20/2010 SALGUERO DO, PHILIPPE K 278.02 Overweight 11/20/2010 SALGUERO DO, PHILIPPE K 278.02 Overweight 11/20/2010 SALGUERO DO, PHILIPPE K 278.02 Overweight 11/20/2010 SALGUERO DO, PHILIPPE K 278.02 Overweight 11/20/2010 SALGUERO DO, PHILIPPE K 278.02 Overweight 11/20/2010 SALGUERO DO, PHILIPPE K 278.02 Overweight 11/20/2010 WHITE DDSDEEDEE 278.02 Overweight 11/20/2010 MAEVE NARAYANAN PA-C 278.02 Overweight 11/20/2010 SALGUERO DO, PHILIPPE K 278.02 Overweight 11/20/2010 WHITE DDS, DEEDEE [place] 278.02 Overweight 11/20/2010 BOY LUND APRN 278.02 Overweight 11/20/2010 SALGUERO DO, PHILIPPE K 278.02 Overweight 11/20/2010 SALGUERO DO, PHILIPPE K 278.02 Overweight 11/20/2010 BOY LUND APRN 278.02 Overweight 11/20/2010 WHITE DDSDEEDEE 278.02 Overweight 11/20/2010 WHITE DDSDEEDEE 278.02 Overweight 11/20/2010 SALGUERO DO, PHILIPPE K 278.02 Overweight 11/20/2010 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, BOY J 278.02 Overweight 11/20/2010 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, BOY J 278.02 Overweight 11/20/2010 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, BOY J 278.02 Overweight 11/20/2010 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, BOY J 278.02 Overweight 11/20/2010 SALGUERO DO, PHILIPPE K 278.02 Overweight 11/20/2010 SALGUERO DO, PHILIPPE K 278.02 Overweight 11/20/2010 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, BOY J 278.02 Overweight 11/20/2010 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, BOY J 278.02 Overweight 11/20/2010 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, BOY J 278.02 Overweight 11/20/2010 SALGUERO DO, PHILIPPE K 278.02 Overweight 11/20/2010 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, BOY J 278.02 Overweight 11/20/2010 IVET [facility], AJCKIE Eastman 278.02 Overweight 11/20/2010 SALGUERO DO, PHILIPPE K 278.02 Overweight 11/20/2010 SALGUERO DO, PHILIPPE K 278.02 Overweight 11/20/2010 CHRIS WINTER APRN 278.02 Overweight 11/20/2010 SALGUERO DO, PHILIPPE K 278.02 Overweight 11/20/2010 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, BOY J 278.02 Overweight 11/20/2010 SALGUERO DO, PHILIPPE K 278.02 Overweight 12/01/2010 307.42 PERSISTENT INSOMNIA 12/01/2010 LOBO CHERY DDS 307.42 PERSISTENT INSOMNIA 12/01/2010 307.42 PERSISTENT INSOMNIA 12/01/2010 SALGUERO DO PHILIPPE K 307.42 PERSISTENT INSOMNIA 12/01/2010 SALGUERO DO, PHILIPPE K 307.42 PERSISTENT INSOMNIA 12/01/2010 SALGUERO DO, PHILIPPE K 307.42 PERSISTENT INSOMNIA 12/01/2010 307.42 PERSISTENT INSOMNIA 12/01/2010 307.42 PERSISTENT INSOMNIA 12/01/2010 307.42 PERSISTENT INSOMNIA 12/01/2010 307.42 PERSISTENT INSOMNIA 12/01/2010 307.42 PERSISTENT INSOMNIA 12/01/2010 307.42 PERSISTENT INSOMNIA 12/01/2010 SALGUERO DO, PHILIPPE K 307.42 PERSISTENT INSOMNIA 12/01/2010 307.42 PERSISTENT INSOMNIA 12/01/2010 307.42 PERSISTENT INSOMNIA 12/01/2010 SALGUERO DO, PHILIPPE K 307.42 PERSISTENT INSOMNIA 12/01/2010 SALGUERO DO, PHILIPPE K 307.42 PERSISTENT INSOMNIA 12/01/2010 SALGUERO DO, PHILIPPE K 307.42 PERSISTENT INSOMNIA 12/01/2010 SALGUERO DO, PHILIPPE K 307.42 PERSISTENT INSOMNIA 12/01/2010 SALGUERO DO, PHILIPPE K 307.42 PERSISTENT INSOMNIA 12/01/2010 SALGUERO DO, PHILIPPE K 307.42 PERSISTENT INSOMNIA 12/01/2010 SALGUERO DO, PHILIPPE K 307.42 PERSISTENT INSOMNIA 12/01/2010 SALGUERO DO, PHILIPPE K 307.42 PERSISTENT INSOMNIA 12/01/2010 SALGUERO DO, PHILIPPE K 307.42 PERSISTENT INSOMNIA 12/01/2010 WHITE DDS, DEEDEE J 307.42 PERSISTENT INSOMNIA 12/01/2010 MAEVE NARAYANAN PA-C 307.42 PERSISTENT INSOMNIA 12/01/2010 SALGUERO DO, PHILIPPE K 307.42 PERSISTENT INSOMNIA 12/01/2010 WHITE DDS, DEEDEE J 307.42 PERSISTENT INSOMNIA 12/01/2010 ASHELY VASQUES, BOY J 307.42 PERSISTENT INSOMNIA 12/01/2010 SALGUERO DO, PHILIPPE K 307.42 PERSISTENT INSOMNIA 12/01/2010 SALGUERO DO, PHILIPPE K 307.42 PERSISTENT INSOMNIA 12/01/2010 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, BOY J 307.42 PERSISTENT INSOMNIA 12/01/2010 WHITE DDS, DEEDEE J 307.42 PERSISTENT INSOMNIA 12/01/2010 WHITE DDS, DEEDEE J 307.42 PERSISTENT INSOMNIA 12/01/2010 SALGUERO DO, PHILIPPE K 307.42 PERSISTENT INSOMNIA 12/01/2010 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, BOY J 307.42 PERSISTENT INSOMNIA 12/01/2010 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, BOY J 307.42 PERSISTENT INSOMNIA 12/01/2010 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, BOY J 307.42 PERSISTENT INSOMNIA 12/01/2010 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, BOY J 307.42 PERSISTENT INSOMNIA 12/01/2010 SALGUERO DO, PHILIPPE K 307.42 PERSISTENT INSOMNIA 12/01/2010 SALGUERO DO, PHILIPPE K 307.42 PERSISTENT INSOMNIA 12/01/2010 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, BOY J 307.42 PERSISTENT INSOMNIA 12/01/2010 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, BOY J 307.42 PERSISTENT INSOMNIA 12/01/2010 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, BOY J 307.42 PERSISTENT INSOMNIA 12/01/2010 SALGUERO DO PHILIPPE K 307.42 PERSISTENT INSOMNIA 12/01/2010 BOY LUND APRN 307.42 PERSISTENT INSOMNIA 12/01/2010 [facility], JACKIE R 307.42 PERSISTENT INSOMNIA 12/01/2010 SALGUERO DO, PHILIPPE K 307.42 PERSISTENT INSOMNIA 12/01/2010 SALGUERO DO, PHILIPPE K 307.42 PERSISTENT INSOMNIA 12/01/2010 CHRIS WINTER APRN 307.42 PERSISTENT INSOMNIA 12/01/2010 SALGUERO DO, PHILIPPE K 307.42 PERSISTENT INSOMNIA 12/01/2010 BOY LUND APRN 307.42 PERSISTENT INSOMNIA 12/01/2010 SALGUERO DO, PHILIPPE K 307.42 PERSISTENT INSOMNIA 12/23/2010 278.00 OBESITY 12/23/2010 LOBO CHERY DDS 278.00 OBESITY 12/23/2010 278.00 OBESITY 12/23/2010 SALGUERO DO, PHILIPPE K 278.00 OBESITY 12/23/2010 SALGUERO DO, PHILIPPE K 278.00 OBESITY 12/23/2010 SALGUERO DO, PHILIPPE K 278.00 OBESITY 12/23/2010 278.00 OBESITY 12/23/2010 278.00 OBESITY 12/23/2010 278.00 OBESITY 12/23/2010 278.00 OBESITY 12/23/2010 278.00 OBESITY 12/23/2010 278.00 OBESITY 12/23/2010 SALGUERO DO, PHILIPPE K 278.00 OBESITY 12/23/2010 278.00 OBESITY 12/23/2010 278.00 OBESITY 12/23/2010 SALGUERO DO, PHILIPPE K 278.00 OBESITY 12/23/2010 SALGUERO DO, PHILIPPE K 278.00 OBESITY 12/23/2010 SALGUERO DO, PHILIPPE K 278.00 OBESITY 12/23/2010 SALGUERO DO, PHILIPPE K 278.00 OBESITY 12/23/2010 SALGUERO DO, PHILIPPE K 278.00 OBESITY 12/23/2010 SALGUERO DO, PHILIPPE K 278.00 OBESITY 12/23/2010 SALGUERO DO, PHILIPPE K 278.00 OBESITY 12/23/2010 SALGUERO DO, PHILIPPE K 278.00 OBESITY 12/23/2010 SALGUERO DO, PHILIPPE K 278.00 OBESITY 12/23/2010 WHITE DEEDEE JACOBSON 278.00 OBESITY 12/23/2010 MAEVE NARAYANAN PA-C 278.00 OBESITY 12/23/2010 SALGUERO DO, PHILIPPE K 278.00 OBESITY 12/23/2010 WHITE IVONS, DEEDEE J 278.00 OBESITY 12/23/2010 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, BOY J 278.00 OBESITY 12/23/2010 SALGUERO DO, PHILIPPE K 278.00 OBESITY 12/23/2010 SALGUERO DO, PHILIPPE K 278.00 OBESITY 12/23/2010 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, BOY J 278.00 OBESITY 12/23/2010 WHITE DDS, DEEDEE J 278.00 OBESITY 12/23/2010 WHITE DDS, DEEDEE J 278.00 OBESITY 12/23/2010 SALGUERO DO, PHILIPPE K 278.00 OBESITY 12/23/2010 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, BOY J 278.00 OBESITY 12/23/2010 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, BOY J 278.00 OBESITY 12/23/2010 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, BOY J 278.00 OBESITY 12/23/2010 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, BOY J 278.00 OBESITY 12/23/2010 SALGUERO DO, PHILIPPE K 278.00 OBESITY 12/23/2010 SALGUERO DO, PHILIPPE K 278.00 OBESITY 12/23/2010 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, BOY J 278.00 OBESITY 12/23/2010 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, 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 278.00 OBESITY 12/23/2010 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, 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 278.00 OBESITY 12/23/2010 SALGUERO DO, PHILIPPE K 278.00 OBESITY 12/23/2010 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, 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 278.00 OBESITY 12/23/2010 [facility], JACKIE R 278.00 OBESITY 12/23/2010 SALGUERO DO, PHILIPPE K 278.00 OBESITY 12/23/2010 SALGUERO DO, PHILIPPE K 278.00 OBESITY 12/23/2010 CHRIS WINTER APRN 278.00 OBESITY 12/23/2010 SALGUERO DO, PHILIPPE K 278.00 OBESITY 12/23/2010 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, 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 278.00 OBESITY 12/23/2010 SALGUERO DO, PHILIPPE K 278.00 OBESITY 01/22/2011 528.00 Stomatitis And Mucositis Unspecified 01/22/2011 782.61 Pallor 01/22/2011 MUOGHALU DDS, LOBO N 528.00 Stomatitis And Mucositis Unspecified 01/22/2011 MUOGHALU DDS, LOBO N 782.61 Pallor 01/22/2011 528.00 Stomatitis And Mucositis Unspecified 01/22/2011 782.61 Pallor 01/22/2011 SALGUERO DO, PHILIPPE K 528.00 Stomatitis And Mucositis Unspecified 01/22/2011 SALGUERO DO, PHILIPPE K 782.61 Pallor 01/22/2011 SALGUERO DO, PHILIPPE K 528.00 Stomatitis And Mucositis Unspecified 01/22/2011 SALGUERO DO, PHILIPPE K 782.61 Pallor 01/22/2011 SALGUERO DO, PHILIPPE K 528.00 Stomatitis And Mucositis Unspecified 01/22/2011 SALGUERO DO, PHILIPPE K 782.61 Pallor 01/22/2011 528.00 Stomatitis And Mucositis Unspecified 01/22/2011 782.61 Pallor 01/22/2011 528.00 Stomatitis And Mucositis Unspecified 01/22/2011 782.61 Pallor 01/22/2011 528.00 Stomatitis And Mucositis Unspecified 01/22/2011 782.61 Pallor 01/22/2011 528.00 Stomatitis And Mucositis Unspecified 01/22/2011 782.61 Pallor 01/22/2011 528.00 Stomatitis And Mucositis Unspecified 01/22/2011 782.61 Pallor 01/22/2011 528.00 Stomatitis And Mucositis Unspecified 01/22/2011 782.61 Pallor 01/22/2011 SALGUERO DO, PHILIPPE K 528.00 Stomatitis And Mucositis Unspecified 01/22/2011 SALGUERO DO, PHILIPPE K 782.61 Pallor 01/22/2011 528.00 Stomatitis And Mucositis Unspecified 01/22/2011 782.61 Pallor 01/22/2011 528.00 Stomatitis And Mucositis Unspecified 01/22/2011 782.61 Pallor 01/22/2011 SALGUERO DO, PHILIPPE K 528.00 Stomatitis And Mucositis Unspecified 01/22/2011 SALGUERO DO, PHILIPPE K 782.61 Pallor 01/22/2011 SALGUERO DO, PHILIPPE K 528.00 Stomatitis And Mucositis Unspecified 01/22/2011 SALGUERO DO, PHILIPPE K 782.61 Pallor 01/22/2011 SALGUERO DO, PHILIPPE K 528.00 Stomatitis And Mucositis Unspecified 01/22/2011 SALGUERO DO, PHILIPPE K 782.61 Pallor 01/22/2011 SALGUERO DO, PHILIPPE K 528.00 Stomatitis And Mucositis Unspecified 01/22/2011 SALGUERO DO, PHILIPPE K 782.61 Pallor 01/22/2011 SALGUERO DO, PHILIPPE K 528.00 Stomatitis And Mucositis Unspecified 01/22/2011 SALGUERO DO, PHILIPPE K 782.61 Pallor 01/22/2011 SALGUERO DO, PHILIPPE K 528.00 Stomatitis And Mucositis Unspecified 01/22/2011 SALGUERO DO, PHILIPPE K 782.61 Pallor 01/22/2011 SALGUERO DO, PHILIPPE K 528.00 Stomatitis And Mucositis Unspecified 01/22/2011 SALGUERO DO, PHILIPPE K 782.61 Pallor 01/22/2011 SALGUERO DO, PHILIPPE K 528.00 Stomatitis And Mucositis Unspecified 01/22/2011 SALGUERO DO, PHILIPPE K 782.61 Pallor 01/22/2011 SALGUERO DO, PHILIPPE K 528.00 Stomatitis And Mucositis Unspecified 01/22/2011 SALGUERO DO, PHILIPPE K 782.61 Pallor 01/22/2011 WHITE DDS, DEEDEE J 528.00 Stomatitis And Mucositis Unspecified 01/22/2011 WHITE DDS, DEEDEE J 782.61 Pallor 01/22/2011 MAEVE NARAYANAN PA-C 528.00 Stomatitis And Mucositis Unspecified 01/22/2011 MAEVE NARAYANAN PA-C 782.61 Pallor 01/22/2011 SALGUERO DO, PHILIPPE K 528.00 Stomatitis And Mucositis Unspecified 01/22/2011 SALGUERO DO, PHILIPPE K 782.61 Pallor 01/22/2011 WHITE DDS, DEEDEE J 528.00 Stomatitis And Mucositis Unspecified 01/22/2011 WHITE DDS, DEEDEE J 782.61 Pallor 01/22/2011 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, BOY J 528.00 Stomatitis And Mucositis Unspecified 01/22/2011 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, BOY J 782.61 Pallor 01/22/2011 SALGUERO DO, PHILIPPE K 528.00 Stomatitis And Mucositis Unspecified 01/22/2011 SALGUERO DO, PHILIPPE K 782.61 Pallor 01/22/2011 SALGUERO DO, PHILIPPE K 528.00 Stomatitis And Mucositis Unspecified 01/22/2011 SALGUERO DO, PHILIPPE K 782.61 Pallor 01/22/2011 ASHELY VASQUES BOY J 528.00 Stomatitis And Mucositis Unspecified 01/22/2011 ASHELY VASQUES BOY J 782.61 Pallor 01/22/2011 WHITE DDS, DEEDEE J 528.00 Stomatitis And Mucositis Unspecified 01/22/2011 WHITE DDS, DEEDEE J 782.61 Pallor 01/22/2011 WHITE DDS, DEEDEE J 528.00 Stomatitis And Mucositis Unspecified 01/22/2011 WHITE DDS, DEEDEE J 782.61 Pallor 01/22/2011 SALGUERO DO, PHILIPPE K 528.00 Stomatitis And Mucositis Unspecified 01/22/2011 SALGUERO DO, PHILIPPE K 782.61 Pallor 01/22/2011 ASHELY VASQUES BOY J 528.00 Stomatitis And Mucositis Unspecified 01/22/2011 BECKY LUND APRNINDA J 782.61 Pallor 01/22/2011 ASHELY VASQUES BOY J 528.00 Stomatitis And Mucositis Unspecified 01/22/2011 ASHELY VASQUES BOY J 782.61 Pallor 01/22/2011 ASHELY VASQUES BOY J 528.00 Stomatitis And Mucositis Unspecified 01/22/2011 ASHELY VASQUES BOY J 782.61 Pallor 01/22/2011 ASHELY VASQUES BOY J 528.00 Stomatitis And Mucositis Unspecified 01/22/2011 BECKY LUND APRNINDA J 782.61 Pallor 01/22/2011 SALGUERO DO, PHILIPPE K 528.00 Stomatitis And Mucositis Unspecified 01/22/2011 SALGUERO DO, PHILIPPE K 782.61 Pallor 01/22/2011 SALGUERO DO, PHILIPPE K 528.00 Stomatitis And Mucositis Unspecified 01/22/2011 SALGUERO DO, PHILIPPE K 782.61 Pallor 01/22/2011 ASHELY VASQUES BOY J 528.00 Stomatitis And Mucositis Unspecified 01/22/2011 ASHELY VASQUES BOY J 782.61 Pallor 01/22/2011 ASHELY VASQUES BOY J 528.00 Stomatitis And Mucositis Unspecified 01/22/2011 BOY LUND APRN 782.61 Pallor 01/22/2011 BOY LUND APRN J 528.00 Stomatitis And Mucositis Unspecified 01/22/2011 BOY LUND APRN J 782.61 Pallor 01/22/2011 SALGUERO DO PHILIPPE K 528.00 Stomatitis And Mucositis Unspecified 01/22/2011 SALGUERO DO PHILIPPE K 782.61 Pallor 01/22/2011 BOY LUND APRN J 528.00 Stomatitis And Mucositis Unspecified 01/22/2011 BOY LUND APRN J 782.61 Pallor 01/22/2011 [facility], JACKIE R 528.00 Stomatitis And Mucositis Unspecified 01/22/2011 [facility], JACKIE R 782.61 Pallor 01/22/2011 SALGUERO DO PHILIPPE K 528.00 Stomatitis And Mucositis Unspecified 01/22/2011 SALGUERO DO, PHILIPPE K 782.61 Pallor 01/22/2011 SALGUERO DO PHILIPPE K 528.00 Stomatitis And Mucositis Unspecified 01/22/2011 SALGUERO DO, PHILIPPE K 782.61 Pallor 01/22/2011 MOY VASQUES CHRIS A 528.00 Stomatitis And Mucositis Unspecified 01/22/2011 MOY VASQUES CHRIS A 782.61 Pallor 01/22/2011 SALGUERO DO PHILIPPE K 528.00 Stomatitis And Mucositis Unspecified 01/22/2011 SALGUERO DO PHILIPPE K 782.61 Pallor 01/22/2011 BOY LUND APRN 528.00 Stomatitis And Mucositis Unspecified 01/22/2011 BOY LUND APRN J 782.61 Pallor 01/22/2011 SALGUERO DO, PIHLIPPE K 528.00 Stomatitis And Mucositis Unspecified 01/22/2011 SALGUERO DO, PHILIPPE K 782.61 Pallor 03/05/2011 276.51 Dehydration 03/05/2011 726.31 MEDIAL EPICONDYLITIS 03/05/2011 V76.19 OTHER SCREENING BREAST EXAMINATION 03/05/2011 LOBO CHERY DDS N 276.51 Dehydration 03/05/2011 LOBO CHERY DDS N 726.31 MEDIAL EPICONDYLITIS 03/05/2011 LOBO CHERY DDS N V76.19 OTHER SCREENING BREAST EXAMINATION 03/05/2011 276.51 Dehydration 03/05/2011 726.31 MEDIAL EPICONDYLITIS 03/05/2011 V76.19 OTHER SCREENING BREAST EXAMINATION 03/05/2011 SALGUERO DO, PHILIPPE K 276.51 Dehydration 03/05/2011 SALGUERO DO, PHILIPPE K 726.31 MEDIAL EPICONDYLITIS 03/05/2011 SALGUERO DO, PHILIPPE K V76.19 OTHER SCREENING BREAST EXAMINATION 03/05/2011 SALGUERO DO, PHILIPPE K 276.51 Dehydration 03/05/2011 SALGUERO DO, PHILIPPE K 726.31 MEDIAL EPICONDYLITIS 03/05/2011 SALGUERO DO, PHILIPPE K V76.19 OTHER SCREENING BREAST EXAMINATION 03/05/2011 SALGUERO DO, PHILIPPE K 276.51 Dehydration 03/05/2011 SALGUERO DO, PHILIPPE K 726.31 MEDIAL EPICONDYLITIS 03/05/2011 SALGUERO DO, PHILIPPE K V76.19 OTHER SCREENING BREAST EXAMINATION 03/05/2011 276.51 Dehydration 03/05/2011 726.31 MEDIAL EPICONDYLITIS 03/05/2011 V76.19 OTHER SCREENING BREAST EXAMINATION 03/05/2011 276.51 Dehydration 03/05/2011 726.31 MEDIAL EPICONDYLITIS 03/05/2011 V76.19 OTHER SCREENING BREAST EXAMINATION 03/05/2011 276.51 Dehydration 03/05/2011 726.31 MEDIAL EPICONDYLITIS 03/05/2011 V76.19 OTHER SCREENING BREAST EXAMINATION 03/05/2011 276.51 Dehydration 03/05/2011 726.31 MEDIAL EPICONDYLITIS 03/05/2011 V76.19 OTHER SCREENING BREAST EXAMINATION 03/05/2011 276.51 Dehydration 03/05/2011 726.31 MEDIAL EPICONDYLITIS 03/05/2011 V76.19 OTHER SCREENING BREAST EXAMINATION 03/05/2011 276.51 Dehydration 03/05/2011 726.31 MEDIAL EPICONDYLITIS 03/05/2011 V76.19 OTHER SCREENING BREAST EXAMINATION 03/05/2011 SALGUERO DO, PHILIPPE K 276.51 Dehydration 03/05/2011 SALGUERO DO, PHILIPPE K 726.31 MEDIAL EPICONDYLITIS 03/05/2011 SALGUERO DO, PHILIPPE K V76.19 OTHER SCREENING BREAST EXAMINATION 03/05/2011 276.51 Dehydration 03/05/2011 726.31 MEDIAL EPICONDYLITIS 03/05/2011 V76.19 OTHER SCREENING BREAST EXAMINATION 03/05/2011 276.51 Dehydration 03/05/2011 726.31 MEDIAL EPICONDYLITIS 03/05/2011 V76.19 OTHER SCREENING BREAST EXAMINATION 03/05/2011 SALGUERO DO, PHILIPPE K 276.51 Dehydration 03/05/2011 SALGUERO DO, PHILIPPE K 726.31 MEDIAL EPICONDYLITIS 03/05/2011 SALGUERO DO, PHILIPPE K V76.19 OTHER SCREENING BREAST EXAMINATION 03/05/2011 SALGUERO DO, PHILIPPE K 276.51 Dehydration 03/05/2011 SALGUERO DO, PHILIPPE K 726.31 MEDIAL EPICONDYLITIS 03/05/2011 SALGUERO DO, PHILIPPE K V76.19 OTHER SCREENING BREAST EXAMINATION 03/05/2011 SALGUERO DO, PHILIPPE K 276.51 Dehydration 03/05/2011 SALGUERO DO, PHILIPPE K 726.31 MEDIAL EPICONDYLITIS 03/05/2011 SALGUERO DO, PHILIPPE K V76.19 OTHER SCREENING BREAST EXAMINATION 03/05/2011 SALGUERO DO, PHILIPPE K 276.51 Dehydration 03/05/2011 SALGUERO DO, PHILIPPE K 726.31 MEDIAL EPICONDYLITIS 03/05/2011 SALGUERO DO, PHILIPPE K V76.19 OTHER SCREENING BREAST EXAMINATION 03/05/2011 SALGUERO DO, PHILIPPE K 276.51 Dehydration 03/05/2011 SALGUERO DO, PHILIPPE K 726.31 MEDIAL EPICONDYLITIS 03/05/2011 SALGUERO DO, PHILIPPE K V76.19 OTHER SCREENING BREAST EXAMINATION 03/05/2011 SALGUERO DO, PHILIPPE K 276.51 Dehydration 03/05/2011 SALGUERO DO, PHILIPPE K 726.31 MEDIAL EPICONDYLITIS 03/05/2011 SALGUERO DO, PHILIPPE K V76.19 OTHER SCREENING BREAST EXAMINATION 03/05/2011 SALGUERO DO, PHILIPPE K 276.51 Dehydration 03/05/2011 SALGUERO DO, PHILIPPE K 726.31 MEDIAL EPICONDYLITIS 03/05/2011 SALGUERO DO, PHILIPPE K V76.19 OTHER SCREENING BREAST EXAMINATION 03/05/2011 SALGUERO DO, PHILIPPE K 276.51 Dehydration 03/05/2011 SALGUERO DO, PHILIPPE K 726.31 MEDIAL EPICONDYLITIS 03/05/2011 SALGUERO DO, PHILIPPE K V76.19 OTHER SCREENING BREAST EXAMINATION 03/05/2011 SALGUERO DO, PHILIPPE K 276.51 Dehydration 03/05/2011 SALGUERO DO, PHILIPPE K 726.31 MEDIAL EPICONDYLITIS 03/05/2011 SALGUERO DO, PHILIPPE K V76.19 OTHER SCREENING BREAST EXAMINATION 03/05/2011 WHITE DDS, DEEDEE J 276.51 Dehydration 03/05/2011 WHITE DDS, DEEDEE J 726.31 MEDIAL EPICONDYLITIS 03/05/2011 WHITE DDS, DEEDEE J V76.19 OTHER SCREENING BREAST EXAMINATION 03/05/2011 MAEVE NARAYANAN PA-C 276.51 Dehydration 03/05/2011 MAEVE NARAYANAN PA-C 726.31 MEDIAL EPICONDYLITIS 03/05/2011 MAEVE NARAYANAN PA-C V76.19 OTHER SCREENING BREAST EXAMINATION 03/05/2011 SALGUERO DO, PHILIPPE K 276.51 Dehydration 03/05/2011 SALGUERO DO, PHILIPPE K 726.31 MEDIAL EPICONDYLITIS 03/05/2011 SALGUERO DO, PHILIPPE K V76.19 OTHER SCREENING BREAST EXAMINATION 03/05/2011 WHITE DDS, DEEDEE J 276.51 Dehydration 03/05/2011 WHITE DDS, DEEDEE J 726.31 MEDIAL EPICONDYLITIS 03/05/2011 WHITE DDS, DEEDEE J V76.19 OTHER SCREENING BREAST EXAMINATION 03/05/2011 JUAREZ LUND APRNA J 276.51 Dehydration 03/05/2011 BOY LUND APRN J 726.31 MEDIAL EPICONDYLITIS 03/05/2011 JUAREZ LUND APRNA J V76.19 OTHER SCREENING BREAST EXAMINATION 03/05/2011 SALGUERO DO, PHILIPPE K 276.51 Dehydration 03/05/2011 SALGUERO DO, PHILIPPE K 726.31 MEDIAL EPICONDYLITIS 03/05/2011 SALGUERO DO, PHILIPPE K V76.19 OTHER SCREENING BREAST EXAMINATION 03/05/2011 SALGUERO DO, PHILIPPE K 276.51 Dehydration 03/05/2011 SALGUERO DO, PHILIPPE K 726.31 MEDIAL EPICONDYLITIS 03/05/2011 SALGUERO DO, PHILIPPE K V76.19 OTHER SCREENING BREAST EXAMINATION 03/05/2011 ASHELY SPANGLERN BOY J 276.51 Dehydration 03/05/2011 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 BOY J 726.31 MEDIAL EPICONDYLITIS 03/05/2011 ASHELY VASQUES BOY J V76.19 OTHER SCREENING BREAST EXAMINATION 03/05/2011 WHITE DDS, DEEDEE J 276.51 Dehydration 03/05/2011 WHITE DDS, DEEDEE J 726.31 MEDIAL EPICONDYLITIS 03/05/2011 WHITE DDS, DEEDEE J V76.19 OTHER SCREENING BREAST EXAMINATION 03/05/2011 WHITE DDS, DEEDEE J 276.51 Dehydration 03/05/2011 WHITE DDS, DEEDEE J 726.31 MEDIAL EPICONDYLITIS 03/05/2011 WHITE DDS, DEEDEE J V76.19 OTHER SCREENING BREAST EXAMINATION 03/05/2011 SALGUERO DO, PHILIPPE K 276.51 Dehydration 03/05/2011 SALGUERO DO, PHILIPPE K 726.31 MEDIAL EPICONDYLITIS 03/05/2011 SALGUERO DO, PHILIPPE K V76.19 OTHER SCREENING BREAST EXAMINATION 03/05/2011 BECKY LUND APRNINDA J 276.51 Dehydration 03/05/2011 BECKY LUND APRNINDA J 726.31 MEDIAL EPICONDYLITIS 03/05/2011 BECKY LUND APRNINDA J V76.19 OTHER SCREENING BREAST EXAMINATION 03/05/2011 JUAREZ LUND APRNA J 276.51 Dehydration 03/05/2011 BECKY LUND APRNINDA J 726.31 MEDIAL EPICONDYLITIS 03/05/2011 BECKY LUND APRNINDA J V76.19 OTHER SCREENING BREAST EXAMINATION 03/05/2011 BECKY LUND APRNINDA J 276.51 Dehydration 03/05/2011 ASHELY VASQUES BOY J 726.31 MEDIAL EPICONDYLITIS 03/05/2011 BECKY LUND APRNINDA J V76.19 OTHER SCREENING BREAST EXAMINATION 03/05/2011 BECKY LUND APRNINDA J 276.51 Dehydration 03/05/2011 ASHELY VASQUES BOY J 726.31 MEDIAL EPICONDYLITIS 03/05/2011 ASHELY VASQUES BOY J V76.19 OTHER SCREENING BREAST EXAMINATION 03/05/2011 SALGUERO DO, PHILIPPE K 276.51 Dehydration 03/05/2011 SALGUERO DO, PHILIPPE K 726.31 MEDIAL EPICONDYLITIS 03/05/2011 SALGUERO DO, PHILIPPE K V76.19 OTHER SCREENING BREAST EXAMINATION 03/05/2011 SALGUERO DO, PHILIPPE K 276.51 Dehydration 03/05/2011 SALGUERO DO, PHILIPPE K 726.31 MEDIAL EPICONDYLITIS 03/05/2011 SALGUERO DO, PHILIPPE K V76.19 OTHER SCREENING BREAST EXAMINATION 03/05/2011 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, BOY J 276.51 Dehydration 03/05/2011 JUAREZ LUND APRNA J 726.31 MEDIAL EPICONDYLITIS 03/05/2011 BOY LUND APRN V76.19 OTHER SCREENING BREAST EXAMINATION 03/05/2011 JUAREZ LUND APRNA J 276.51 Dehydration 03/05/2011 JUAREZ LUND APRNA J 726.31 MEDIAL EPICONDYLITIS 03/05/2011 BOY LUND APRN V76.19 OTHER SCREENING BREAST EXAMINATION 03/05/2011 BOY LUND APRN J 276.51 Dehydration 03/05/2011 JUAREZ LUND APRNA J 726.31 MEDIAL EPICONDYLITIS 03/05/2011 JUAREZ LUND APRNA Marine V76.19 OTHER SCREENING BREAST EXAMINATION 03/05/2011 SALGUERO DO PHILIPPE K 276.51 Dehydration 03/05/2011 SALGUERO DO, PHILIPPE K 726.31 MEDIAL EPICONDYLITIS 03/05/2011 SALGUERO DO PHILIPPE K V76.19 OTHER SCREENING BREAST EXAMINATION 03/05/2011 BOY LUND APRN J 276.51 Dehydration 03/05/2011 JUAREZ LUND APRNA J 726.31 MEDIAL EPICONDYLITIS 03/05/2011 JUAREZ LUND APRNA J V76.19 OTHER SCREENING BREAST EXAMINATION 03/05/2011 [facility], JACKIE R 276.51 Dehydration 03/05/2011 [facility], JACKIE R 726.31 MEDIAL EPICONDYLITIS 03/05/2011 [facility], JACKIE R V76.19 OTHER SCREENING BREAST EXAMINATION 03/05/2011 SALGUERO DO, PHILIPPE K 276.51 Dehydration 03/05/2011 SALGUERO DO, PHILIPPE K 726.31 MEDIAL EPICONDYLITIS 03/05/2011 SALGUERO DO, PHILIPPE K V76.19 OTHER SCREENING BREAST EXAMINATION 03/05/2011 SALGUERO DO, PHILIPPE K 276.51 Dehydration 03/05/2011 SALGUERO DO, PHILIPPE K 726.31 MEDIAL EPICONDYLITIS 03/05/2011 SALGUERO DO, PHILIPPE K V76.19 OTHER SCREENING BREAST EXAMINATION 03/05/2011 CHRIS WINTER APRN A 276.51 Dehydration 03/05/2011 MOYDANNY VASQUES CHRIS A 726.31 MEDIAL EPICONDYLITIS 03/05/2011 CHRIS WINTER APRN A V76.19 OTHER SCREENING BREAST EXAMINATION 03/05/2011 TANISHA SALGUERO DOA K 276.51 Dehydration 03/05/2011 SALGUERO DO PHILIPPE K 726.31 MEDIAL EPICONDYLITIS 03/05/2011 NOEMY OLVERA PHILIPPE K V76.19 OTHER SCREENING BREAST EXAMINATION 03/05/2011 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, BOY J 276.51 Dehydration 03/05/2011 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, BOY J 726.31 MEDIAL EPICONDYLITIS 03/05/2011 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, BOY J V76.19 OTHER SCREENING BREAST EXAMINATION 03/05/2011 NOEMY OLVERA PHILIPPE K 276.51 Dehydration 03/05/2011 SALGUERO DO PHILIPPE K 726.31 MEDIAL EPICONDYLITIS 03/05/2011 TANISHA SALGUERO DOA K V76.19 OTHER SCREENING BREAST EXAMINATION 03/31/2011 112.1 Candidiasis Vaginal 03/31/2011 611.72 Breast Lump Or Mass 03/31/2011 616.10 Vaginitis 03/31/2011 782.3 Edema 03/31/2011 V76.10 BREAST CANCER SCREENING 03/31/2011 V76.2 CERVICAL CANCER SCREENING (PAP SMEAR) 03/31/2011 MUOGHALU DDS, LOBO N 112.1 Candidiasis Vaginal 03/31/2011 MUOGHALU DDS, LOBO N 611.72 Breast Lump Or Mass 03/31/2011 MUOGHALU DDS, LOBO N 616.10 Vaginitis 03/31/2011 MUOGHALU DDS, LOBO N 782.3 Edema 03/31/2011 MUOGHALU DDS, LOBO N V76.10 BREAST CANCER SCREENING 03/31/2011 DACIAHALU IVONS, LOBO N V76.2 CERVICAL CANCER SCREENING (PAP SMEAR) 03/31/2011 112.1 Candidiasis Vaginal 03/31/2011 611.72 Breast Lump Or Mass 03/31/2011 616.10 Vaginitis 03/31/2011 782.3 Edema 03/31/2011 V76.10 BREAST CANCER SCREENING 03/31/2011 V76.2 CERVICAL CANCER SCREENING (PAP SMEAR) 03/31/2011 TANISHA SALGUERO DOA K 112.1 Candidiasis Vaginal 03/31/2011 TANISHA SALGUERO DOA K 611.72 Breast Lump Or Mass 03/31/2011 PHILIPPE SALGUERO DO K 616.10 Vaginitis 03/31/2011 TANISHA SALGUERO DOA K 782.3 Edema 03/31/2011 TANISHA SALGUERO DOA K V76.10 BREAST CANCER SCREENING 03/31/2011 TANISHA SALGUERO DOA K V76.2 CERVICAL CANCER SCREENING (PAP SMEAR) 03/31/2011 TANISHA SALGUERO DOA K 112.1 Candidiasis Vaginal 03/31/2011 TANISHA SALGUERO DOA K 611.72 Breast Lump Or Mass 03/31/2011 NOEMY OLVERA PHILIPPE K 616.10 Vaginitis 03/31/2011 TANISHA SALGUERO DOA K 782.3 Edema 03/31/2011 TANISHA SALGUERO DOA K V76.10 BREAST CANCER SCREENING 03/31/2011 NOEMY OLVERA PHILIPPE K V76.2 CERVICAL CANCER SCREENING (PAP SMEAR) 03/31/2011 NOEMY OLVERA PHILIPPE K 112.1 Candidiasis Vaginal 03/31/2011 NOEMY OLVERA PHILIPPE K 611.72 Breast Lump Or Mass 03/31/2011 NOEMY PHILIPPE OLVERA K 616.10 Vaginitis 03/31/2011 NOEMY OLVERA PHILIPPE K 782.3 Edema 03/31/2011 NOEMY OLVERA PHILIPPE K V76.10 BREAST CANCER SCREENING 03/31/2011 TANISHA SALGUERO DOA K V76.2 CERVICAL CANCER SCREENING (PAP SMEAR) 03/31/2011 112.1 Candidiasis Vaginal 03/31/2011 611.72 Breast Lump Or Mass 03/31/2011 616.10 Vaginitis 03/31/2011 782.3 Edema 03/31/2011 V76.10 BREAST CANCER SCREENING 03/31/2011 V76.2 CERVICAL CANCER SCREENING (PAP SMEAR) 03/31/2011 112.1 Candidiasis Vaginal 03/31/2011 611.72 Breast Lump Or Mass 03/31/2011 616.10 Vaginitis 03/31/2011 782.3 Edema 03/31/2011 V76.10 BREAST CANCER SCREENING 03/31/2011 V76.2 CERVICAL CANCER SCREENING (PAP SMEAR) 03/31/2011 112.1 Candidiasis Vaginal 03/31/2011 611.72 Breast Lump Or Mass 03/31/2011 616.10 Vaginitis 03/31/2011 782.3 Edema 03/31/2011 V76.10 BREAST CANCER SCREENING 03/31/2011 V76.2 CERVICAL CANCER SCREENING (PAP SMEAR) 03/31/2011 112.1 Candidiasis Vaginal 03/31/2011 611.72 Breast Lump Or Mass 03/31/2011 616.10 Vaginitis 03/31/2011 782.3 Edema 03/31/2011 V76.10 BREAST CANCER SCREENING 03/31/2011 V76.2 CERVICAL CANCER SCREENING (PAP SMEAR) 03/31/2011 112.1 Candidiasis Vaginal 03/31/2011 611.72 Breast Lump Or Mass 03/31/2011 616.10 Vaginitis 03/31/2011 782.3 Edema 03/31/2011 V76.10 BREAST CANCER SCREENING 03/31/2011 V76.2 CERVICAL CANCER SCREENING (PAP SMEAR) 03/31/2011 112.1 Candidiasis Vaginal 03/31/2011 611.72 Breast Lump Or Mass 03/31/2011 616.10 Vaginitis 03/31/2011 782.3 Edema 03/31/2011 V76.10 BREAST CANCER SCREENING 03/31/2011 V76.2 CERVICAL CANCER SCREENING (PAP SMEAR) 03/31/2011 PHILIPPE SALGUERO DO 112.1 Candidiasis Vaginal 03/31/2011 PHILIPPE SALGUERO DO 611.72 Breast Lump Or Mass 03/31/2011 PHILIPPE SALGUERO DO 616.10 Vaginitis 03/31/2011 PHILIPPE SALGUERO DO 782.3 Edema 03/31/2011 PHILIPPE SALGUERO DO V76.10 BREAST CANCER SCREENING 03/31/2011 PHILIPPE SALGUERO DO V76.2 CERVICAL CANCER SCREENING (PAP SMEAR) 03/31/2011 112.1 Candidiasis Vaginal 03/31/2011 611.72 Breast Lump Or Mass 03/31/2011 616.10 Vaginitis 03/31/2011 782.3 Edema 03/31/2011 V76.10 BREAST CANCER SCREENING 03/31/2011 V76.2 CERVICAL CANCER SCREENING (PAP SMEAR) 03/31/2011 112.1 Candidiasis Vaginal 03/31/2011 611.72 Breast Lump Or Mass 03/31/2011 616.10 Vaginitis 03/31/2011 782.3 Edema 03/31/2011 V76.10 BREAST CANCER SCREENING 03/31/2011 V76.2 CERVICAL CANCER SCREENING (PAP SMEAR) 03/31/2011 PHILIPPE SALGUERO DO 112.1 Candidiasis Vaginal 03/31/2011 SALGUERO DO, PHILIPPE K 611.72 Breast Lump Or Mass 03/31/2011 SALGUERO DO, PHILIPPE K 616.10 Vaginitis 03/31/2011 SALGUERO DO, PHILIPPE K 782.3 Edema 03/31/2011 SALGUERO DO, PHILIPPE K V76.10 BREAST CANCER SCREENING 03/31/2011 SALGUERO DO, PHILIPPE K V76.2 CERVICAL CANCER SCREENING (PAP SMEAR) 03/31/2011 SALGUERO DO PHILIPPE K 112.1 Candidiasis Vaginal 03/31/2011 SALGUERO DO PHILIPPE K 611.72 Breast Lump Or Mass 03/31/2011 SALGUERO DO, PHILIPPE K 616.10 Vaginitis 03/31/2011 SALGUERO DO, PHILIPPE K 782.3 Edema 03/31/2011 SALGUERO DO, PHILIPPE K V76.10 BREAST CANCER SCREENING 03/31/2011 SALGUERO DO, PHILIPPE K V76.2 CERVICAL CANCER SCREENING (PAP SMEAR) 03/31/2011 SALGUERO DO PHILIPPE K 112.1 Candidiasis Vaginal 03/31/2011 SALGUERO DO PHILIPPE K 611.72 Breast Lump Or Mass 03/31/2011 SALGUERO DO, PHILIPPE K 616.10 Vaginitis 03/31/2011 SALGUERO DO, PHILIPPE K 782.3 Edema 03/31/2011 SALGUERO DO, PHILIPPE K V76.10 BREAST CANCER SCREENING 03/31/2011 SALGUERO DO, PHILIPPE K V76.2 CERVICAL CANCER SCREENING (PAP SMEAR) 03/31/2011 SALGUERO DO, PHILIPPE K 112.1 Candidiasis Vaginal 03/31/2011 SALGUERO DO PHILIPPE K 611.72 Breast Lump Or Mass 03/31/2011 SALGUERO DO PHILIPPE K 616.10 Vaginitis 03/31/2011 SALGUERO DO, PHILIPPE K 782.3 Edema 03/31/2011 SALGUERO DO, PHILIPPE K V76.10 BREAST CANCER SCREENING 03/31/2011 SALGUERO DO, PHILIPPE K V76.2 CERVICAL CANCER SCREENING (PAP SMEAR) 03/31/2011 SALGUERO DO, PHILIPPE K 112.1 Candidiasis Vaginal 03/31/2011 SALGUERO DO, PHILIPPE K 611.72 Breast Lump Or Mass 03/31/2011 SALGUERO DO, PHILIPPE K 616.10 Vaginitis 03/31/2011 SALGUERO DO PHILIPPE K 782.3 Edema 03/31/2011 SALGUERO DO PHILIPPE K V76.10 BREAST CANCER SCREENING 03/31/2011 SALGUERO DO, PHILIPPE K V76.2 CERVICAL CANCER SCREENING (PAP SMEAR) 03/31/2011 SALGUERO DO PHILIPPE K 112.1 Candidiasis Vaginal 03/31/2011 SALGUERO DO PHILIPPE K 611.72 Breast Lump Or Mass 03/31/2011 SALGUERO DO PHILIPPE K 616.10 Vaginitis 03/31/2011 SALGUERO DO PHILIPPE K 782.3 Edema 03/31/2011 SALGUERO DO PHILIPPE K V76.10 BREAST CANCER SCREENING 03/31/2011 SALGUERO DO PHILIPPE K V76.2 CERVICAL CANCER SCREENING (PAP SMEAR) 03/31/2011 SALGUERO DO PHILIPPE K 112.1 Candidiasis Vaginal 03/31/2011 SALGUERO DO PHILIPPE K 611.72 Breast Lump Or Mass 03/31/2011 SALGUERO DO PHILIPPE K 616.10 Vaginitis 03/31/2011 SALGUERO DO PHILIPPE K 782.3 Edema 03/31/2011 SALGUERO DO PHILIPPE K V76.10 BREAST CANCER SCREENING 03/31/2011 SALGUERO DO PHILIPPE K V76.2 CERVICAL CANCER SCREENING (PAP SMEAR) 03/31/2011 SALGUERO DO PHILIPPE K 112.1 Candidiasis Vaginal 03/31/2011 SALGUERO DO PHILIPPE K 611.72 Breast Lump Or Mass 03/31/2011 SALGUERO DO PHILIPPE K 616.10 Vaginitis 03/31/2011 SALGUERO DO PHILIPPE K 782.3 Edema 03/31/2011 SALGUERO DO PHILIPPE K V76.10 BREAST CANCER SCREENING 03/31/2011 SALGUERO DO PHILIPPE K V76.2 CERVICAL CANCER SCREENING (PAP SMEAR) 03/31/2011 SALGUERO DO PHILIPPE K 112.1 Candidiasis Vaginal 03/31/2011 SALGUERO DO PHILIPPE K 611.72 Breast Lump Or Mass 03/31/2011 SALGUERO DO PHILIPPE K 616.10 Vaginitis 03/31/2011 SALGUERO DO PHILIPPE K 782.3 Edema 03/31/2011 SALGUERO DO PHILIPPE K V76.10 BREAST CANCER SCREENING 03/31/2011 SALGUERO DO PHILIPPE K V76.2 CERVICAL CANCER SCREENING (PAP SMEAR) 03/31/2011 WHITE DDS, DEEDEE J 112.1 Candidiasis Vaginal 03/31/2011 WHITE DDS, DEEDEE J 611.72 Breast Lump Or Mass 03/31/2011 HAN DDS, DEEDEE J 616.10 Vaginitis 03/31/2011 HAN DDSSARABJITON J 782.3 Edema 03/31/2011 HAN DDSDEEDEE J V76.10 BREAST CANCER SCREENING 03/31/2011 HAN DEL VALLESDEEDEE J V76.2 CERVICAL CANCER SCREENING (PAP SMEAR) 03/31/2011 MAEVE NARAYANAN PA-C 112.1 Candidiasis Vaginal 03/31/2011 MAEVE NARAYANAN PA-C 611.72 Breast Lump Or Mass 03/31/2011 MAEVE NARAYANAN PA-C 616.10 Vaginitis 03/31/2011 MAEVE NARAYANAN PA-C 782.3 Edema 03/31/2011 MAEVE NARAYANAN PA-C V76.10 BREAST CANCER SCREENING 03/31/2011 MAEVE NARAYANAN PA-C V76.2 CERVICAL CANCER SCREENING (PAP SMEAR) 03/31/2011 PHILIPPE SALGUERO DO K 112.1 Candidiasis Vaginal 03/31/2011 PHILIPPE SALGUERO DO K 611.72 Breast Lump Or Mass 03/31/2011 PHILIPPE SALGUERO DO K 616.10 Vaginitis 03/31/2011 PHILIPPE SALGUERO DO K 782.3 Edema 03/31/2011 PHILIPPE SALGUERO DO K V76.10 BREAST CANCER SCREENING 03/31/2011 PHILIPPE SALGUERO DO V76.2 CERVICAL CANCER SCREENING (PAP SMEAR) 03/31/2011 HAN DEL VALLESDEEDEE J 112.1 Candidiasis Vaginal 03/31/2011 HAN DEL VALLESDEEDEE J 611.72 Breast Lump Or Mass 03/31/2011 HAN DDSDEEDEE J 616.10 Vaginitis 03/31/2011 HAN DDSDEEDEE J 782.3 Edema 03/31/2011 HAN DDSDEEDEE J V76.10 BREAST CANCER SCREENING 03/31/2011 HAN DDSDEEDEE J V76.2 CERVICAL CANCER SCREENING (PAP SMEAR) 03/31/2011 BOY LUND APRN 112.1 Candidiasis Vaginal 03/31/2011 BOY LUND APRN J 611.72 Breast Lump Or Mass 03/31/2011 BOY LUND APRN J 616.10 Vaginitis 03/31/2011 BOY LUND APRN J 782.3 Edema 03/31/2011 BOY LUND APRN V76.10 BREAST CANCER SCREENING 03/31/2011 BOY LUND APRN V76.2 CERVICAL CANCER SCREENING (PAP SMEAR) 03/31/2011 NOEMY OLVERA PHILIPPE K 112.1 Candidiasis Vaginal 03/31/2011 NOEMY OLVERA PHILIPPE K 611.72 Breast Lump Or Mass 03/31/2011 NOEMY OLVERA PHILIPPE K 616.10 Vaginitis 03/31/2011 NOEMY OLVERA PHILIPPE K 782.3 Edema 03/31/2011 SALGUERO DO PHILIPPE K V76.10 BREAST CANCER SCREENING 03/31/2011 NOEMY OLVERA PHILIPPE K V76.2 CERVICAL CANCER SCREENING (PAP SMEAR) 03/31/2011 NOEMY OLVERA PHILIPPE K 112.1 Candidiasis Vaginal 03/31/2011 NOEMY OLVERA PHILIPPE K 611.72 Breast Lump Or Mass 03/31/2011 NOEMY OLVERA PHILIPPE K 616.10 Vaginitis 03/31/2011 TANISHA SALGUERO DOA K 782.3 Edema 03/31/2011 TANISHA SALGUERO DOA K V76.10 BREAST CANCER SCREENING 03/31/2011 NOEMY OLVERA PHILIPPE K V76.2 CERVICAL CANCER SCREENING (PAP SMEAR) 03/31/2011 BOY LUND APRN 112.1 Candidiasis Vaginal 03/31/2011 BOY LUND APRN 611.72 Breast Lump Or Mass 03/31/2011 BOY LUND APRN 616.10 Vaginitis 03/31/2011 BOY LUND APRN 782.3 Edema 03/31/2011 BOY LUND APRN V76.10 BREAST CANCER SCREENING 03/31/2011 BOY LUND APRN J V76.2 CERVICAL CANCER SCREENING (PAP SMEAR) 03/31/2011 WHITE DDS, DEEDEE J 112.1 Candidiasis Vaginal 03/31/2011 WHITE DDS, DEEDEE J 611.72 Breast Lump Or Mass 03/31/2011 WHITE DDS, DEEDEE J 616.10 Vaginitis 03/31/2011 WHITE DDS, DEEDEE J 782.3 Edema 03/31/2011 WHITE DDSSARABJITON J V76.10 BREAST CANCER SCREENING 03/31/2011 WHITE DDS, DEEDEE J V76.2 CERVICAL CANCER SCREENING (PAP SMEAR) 03/31/2011 WHITE DDS, DEEDEE J 112.1 Candidiasis Vaginal 03/31/2011 WHITE DDS, DEEDEE J 611.72 Breast Lump Or Mass 03/31/2011 WHITE DDS, DEEDEE J 616.10 Vaginitis 03/31/2011 WHITE DDS, DEEDEE J 782.3 Edema 03/31/2011 WHITE DDS, DEEDEE J V76.10 BREAST CANCER SCREENING 03/31/2011 WHITE DDS, DEEDEE J V76.2 CERVICAL CANCER SCREENING (PAP SMEAR) 03/31/2011 NOEMY OLVERA PHILIPPE K 112.1 Candidiasis Vaginal 03/31/2011 NOEMY OLVERA PHILIPPE K 611.72 Breast Lump Or Mass 03/31/2011 NOEMY OLVERA PHILIPPE K 616.10 Vaginitis 03/31/2011 NOEMY OLVERA PHILIPPE K 782.3 Edema 03/31/2011 TANISHA SALGUERO DOA K V76.10 BREAST CANCER SCREENING 03/31/2011 NOEMY OLVERA PHILIPPE K V76.2 CERVICAL CANCER SCREENING (PAP SMEAR) 03/31/2011 ASHELY VASQUES, BOY J 112.1 Candidiasis Vaginal 03/31/2011 ASHELY VASQUES, BOY J 611.72 Breast Lump Or Mass 03/31/2011 ASHELY VASQUES BOY J 616.10 Vaginitis 03/31/2011 JUAREZ LUND APRNA J 782.3 Edema 03/31/2011 ASHELY VASQUES BOY J V76.10 BREAST CANCER SCREENING 03/31/2011 ASHELY SPANGLERN, BOY J V76.2 CERVICAL CANCER SCREENING (PAP SMEAR) 03/31/2011 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, BOY J 112.1 Candidiasis Vaginal 03/31/2011 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, BOY J 611.72 Breast Lump Or Mass 03/31/2011 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, BOY J 616.10 Vaginitis 03/31/2011 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, BOY J 782.3 Edema 03/31/2011 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, BOY J V76.10 BREAST CANCER SCREENING 03/31/2011 ASHELY VASQUES, BOY J V76.2 CERVICAL CANCER SCREENING (PAP SMEAR) 03/31/2011 BOY LUND APRN J 112.1 Candidiasis Vaginal 03/31/2011 JUAREZ LUND APRNA J 611.72 Breast Lump Or Mass 03/31/2011 BOY LUND APRN J 616.10 Vaginitis 03/31/2011 BOY LUND APRN J 782.3 Edema 03/31/2011 BOY LUND APRN V76.10 BREAST CANCER SCREENING 03/31/2011 BOY LUND APRN V76.2 CERVICAL CANCER SCREENING (PAP SMEAR) 03/31/2011 BOY LUND APRN J 112.1 Candidiasis Vaginal 03/31/2011 BOY LUND APRN J 611.72 Breast Lump Or Mass 03/31/2011 BOY LUND APRN J 616.10 Vaginitis 03/31/2011 BOY LUND APRN J 782.3 Edema 03/31/2011 BOY LUND APRN V76.10 BREAST CANCER SCREENING 03/31/2011 BOY LUND APRN V76.2 CERVICAL CANCER SCREENING (PAP SMEAR) 03/31/2011 NOEMY OLVERA PHILIPPE K 112.1 Candidiasis Vaginal 03/31/2011 NOEMY OLVERA PHILIPPE K 611.72 Breast Lump Or Mass 03/31/2011 NOEMY OLVERA PHILIPPE K 616.10 Vaginitis 03/31/2011 NOEMY OLVERA PHILIPPE K 782.3 Edema 03/31/2011 NOEMY OLVERA PHILIPPE K V76.10 BREAST CANCER SCREENING 03/31/2011 NOEMY OLVERA PHILIPPE K V76.2 CERVICAL CANCER SCREENING (PAP SMEAR) 03/31/2011 NOEMY OLVERA PHILIPPE K 112.1 Candidiasis Vaginal 03/31/2011 NOEMY OLVERA PHILIPPE K 611.72 Breast Lump Or Mass 03/31/2011 NOEMY OLVERA PHILIPPE K 616.10 Vaginitis 03/31/2011 NOEMY OLVERA PHILIPPE K 782.3 Edema 03/31/2011 NOEMY OLVERA PHILIPPE K V76.10 BREAST CANCER SCREENING 03/31/2011 NOEMY OLVERA PHILIPPE K V76.2 CERVICAL CANCER SCREENING (PAP SMEAR) 03/31/2011 BOY LUND APRN J 112.1 Candidiasis Vaginal 03/31/2011 BOY LUND APRN 611.72 Breast Lump Or Mass 03/31/2011 BOY LUND APRN 616.10 Vaginitis 03/31/2011 BOY LUND APRN 782.3 Edema 03/31/2011 BOY LUND APRN V76.10 BREAST CANCER SCREENING 03/31/2011 BOY LUND APRN V76.2 CERVICAL CANCER SCREENING (PAP SMEAR) 03/31/2011 BOY LUND APRN 112.1 Candidiasis Vaginal 03/31/2011 BOY LUND APRN 611.72 Breast Lump Or Mass 03/31/2011 BOY LUND APRN 616.10 Vaginitis 03/31/2011 BOY LUND APRN 782.3 Edema 03/31/2011 BOY LUND APRN V76.10 BREAST CANCER SCREENING 03/31/2011 BOY LUND APRN V76.2 CERVICAL CANCER SCREENING (PAP SMEAR) 03/31/2011 BOY LUND APRN 112.1 Candidiasis Vaginal 03/31/2011 BOY LUND APRN 611.72 Breast Lump Or Mass 03/31/2011 BOY LUND APRN 616.10 Vaginitis 03/31/2011 BOY LUND APRN 782.3 Edema 03/31/2011 BOY LUND APRN V76.10 BREAST CANCER SCREENING 03/31/2011 BOY LUND APRN V76.2 CERVICAL CANCER SCREENING (PAP SMEAR) 03/31/2011 TANISHA SALGUERO DOA K 112.1 Candidiasis Vaginal 03/31/2011 TANISHA SALGUERO DOA K 611.72 Breast Lump Or Mass 03/31/2011 TANISHA SALGUERO DOA K 616.10 Vaginitis 03/31/2011 TANISHA SALGUERO DOA K 782.3 Edema 03/31/2011 TANISHA SALGUERO DOA K V76.10 BREAST CANCER SCREENING 03/31/2011 TANISHA SALGUERO DOA K V76.2 CERVICAL CANCER SCREENING (PAP SMEAR) 03/31/2011 BOY LUND APRN 112.1 Candidiasis Vaginal 03/31/2011 BOY LUND APRN 611.72 Breast Lump Or Mass 03/31/2011 BOY LUND APRN 616.10 Vaginitis 03/31/2011 BOY LUND APRN 782.3 Edema 03/31/2011 BOY LUND APRN V76.10 BREAST CANCER SCREENING 03/31/2011 BOY LUND APRN V76.2 CERVICAL CANCER SCREENING (PAP SMEAR) 03/31/2011 [facility], JACKIE R 112.1 Candidiasis Vaginal 03/31/2011 [facility], JACKIE R 611.72 Breast Lump Or Mass 03/31/2011 [facility], JACKIE R 616.10 Vaginitis 03/31/2011 [facility], JACKIE R 782.3 Edema 03/31/2011 [facility], JACKIE R V76.10 BREAST CANCER SCREENING 03/31/2011 [facility], JACKIE R V76.2 CERVICAL CANCER SCREENING (PAP SMEAR) 03/31/2011 PHILIPPE SALGUERO DO K 112.1 Candidiasis Vaginal 03/31/2011 PHILIPPE SALGUERO DO K 611.72 Breast Lump Or Mass 03/31/2011 PHILIPPE SALGUERO DO K 616.10 Vaginitis 03/31/2011 PHILIPPE SALGUERO DO K 782.3 Edema 03/31/2011 PHILIPPE SALGUERO DO K V76.10 BREAST CANCER SCREENING 03/31/2011 PHILIPPE SALGUERO DO K V76.2 CERVICAL CANCER SCREENING (PAP SMEAR) 03/31/2011 PHILIPPE SALGUERO DO K 112.1 Candidiasis Vaginal 03/31/2011 PHILIPPE SALGUERO DO K 611.72 Breast Lump Or Mass 03/31/2011 PHILIPPE SALGUERO DO K 616.10 Vaginitis 03/31/2011 PHILIPPE SALGUERO DO K 782.3 Edema 03/31/2011 PHILIPPE SALGUERO DO K V76.10 BREAST CANCER SCREENING 03/31/2011 TANISHA SALGUERO DOA K V76.2 CERVICAL CANCER SCREENING (PAP SMEAR) 03/31/2011 MOYCHRIS Curiel APRN A 112.1 Candidiasis Vaginal 03/31/2011 MOYVeena VASQUES CHRIS A 611.72 Breast Lump Or Mass 03/31/2011 MOYVeena VASQUES CHRIS A 616.10 Vaginitis 03/31/2011 MOYVeena VASQUES CHRIS A 782.3 Edema 03/31/2011 CHRIS WINTER APRN A V76.10 BREAST CANCER SCREENING 03/31/2011 CHRIS WINTER APRN V76.2 CERVICAL CANCER SCREENING (PAP SMEAR) 03/31/2011 TANISHA SALGUERO DOA K 112.1 Candidiasis Vaginal 03/31/2011 NOEMY OLVERA PHILIPPE K 611.72 Breast Lump Or Mass 03/31/2011 NOEMY OLVERA PHILIPPE K 616.10 Vaginitis 03/31/2011 SALGUERO DO PHILIPPE K 782.3 Edema 03/31/2011 TANISHA SALGUERO DOA K V76.10 BREAST CANCER SCREENING 03/31/2011 TANISHA SALGUERO DOA K V76.2 CERVICAL CANCER SCREENING (PAP SMEAR) 03/31/2011 BOY LUND APRN J 112.1 Candidiasis Vaginal 03/31/2011 BOY LUND APRN 611.72 Breast Lump Or Mass 03/31/2011 BOY LUND APRN 616.10 Vaginitis 03/31/2011 BOY LUND APRN 782.3 Edema 03/31/2011 BOY LUND APRN V76.10 BREAST CANCER SCREENING 03/31/2011 BOY LUND APRN V76.2 CERVICAL CANCER SCREENING (PAP SMEAR) 03/31/2011 TANISHA SALGUERO DOA K 112.1 Candidiasis Vaginal 03/31/2011 TANISHA SALGUERO DOA K 611.72 Breast Lump Or Mass 03/31/2011 TANISHA SALGUERO DOA K 616.10 Vaginitis 03/31/2011 TANISHA SALGUERO DOA K 782.3 Edema 03/31/2011 TANISHA SALGUERO DOA K V76.10 BREAST CANCER SCREENING 03/31/2011 TANISHA SALGUERO DOA K V76.2 CERVICAL CANCER SCREENING (PAP SMEAR) 04/23/2011 724.4 LUMBAR RADICULOPATHY 04/23/2011 799.22 Affect Irritable 04/23/2011 V58.69 taking high-risk medication 04/23/2011 V70.0 Preventive Medicine Estab Patient Checkup Adult 40-64 04/23/2011 LOBO CHERY DDS 724.4 LUMBAR RADICULOPATHY 04/23/2011 LOBO CHERY DDS 799.22 Affect Irritable 04/23/2011 LOBO CHERY DDS V58.69 taking high-risk medication 04/23/2011 LOBO CHERY DDS V70.0 Preventive Medicine Estab Patient Checkup Adult 40-64 04/23/2011 724.4 LUMBAR RADICULOPATHY 04/23/2011 799.22 Affect Irritable 04/23/2011 V58.69 taking high-risk medication 04/23/2011 V70.0 Preventive Medicine Estab Patient Checkup Adult 40-64 04/23/2011 SALGUERO DOTANISHAA K 724.4 LUMBAR RADICULOPATHY 04/23/2011 PHILIPPE SALGUERO DO K 799.22 Affect Irritable 04/23/2011 TANISHA SALGUERO DOA K V58.69 taking high-risk medication 04/23/2011 SALGUERO TANISHA OLVERAA K V70.0 Preventive Medicine Estab Patient Checkup Adult 40-64 04/23/2011 SALGUERO DOTANISHAA K 724.4 LUMBAR RADICULOPATHY 04/23/2011 TANISHA SALGUERO DOA K 799.22 Affect Irritable 04/23/2011 NOEMY OLVERA PHILIPPE K V58.69 taking high-risk medication 04/23/2011 TANISHA SALGUERO DOA K V70.0 Preventive Medicine Estab Patient Checkup Adult 40-64 04/23/2011 SALGUERO TANISHA OLVERAA K 724.4 LUMBAR RADICULOPATHY 04/23/2011 TANISHA SALGUERO DOA K 799.22 Affect Irritable 04/23/2011 TANISHA SALGUERO DOA K V58.69 taking high-risk medication 04/23/2011 TANISHA SALGUERO DOA K V70.0 Preventive Medicine Estab Patient Checkup Adult 40-64 04/23/2011 724.4 LUMBAR RADICULOPATHY 04/23/2011 799.22 Affect Irritable 04/23/2011 V58.69 taking high-risk medication 04/23/2011 V70.0 Preventive Medicine Estab Patient Checkup Adult 40-64 04/23/2011 724.4 LUMBAR RADICULOPATHY 04/23/2011 799.22 Affect Irritable 04/23/2011 V58.69 taking high-risk medication 04/23/2011 V70.0 Preventive Medicine Estab Patient Checkup Adult 40-64 04/23/2011 724.4 LUMBAR RADICULOPATHY 04/23/2011 799.22 Affect Irritable 04/23/2011 V58.69 taking high-risk medication 04/23/2011 V70.0 Preventive Medicine Estab Patient Checkup Adult 40-64 04/23/2011 724.4 LUMBAR RADICULOPATHY 04/23/2011 799.22 Affect Irritable 04/23/2011 V58.69 taking high-risk medication 04/23/2011 V70.0 Preventive Medicine Estab Patient Checkup Adult 40-64 04/23/2011 724.4 LUMBAR RADICULOPATHY 04/23/2011 799.22 Affect Irritable 04/23/2011 V58.69 taking high-risk medication 04/23/2011 V70.0 Preventive Medicine Estab Patient Checkup Adult 40-64 04/23/2011 724.4 LUMBAR RADICULOPATHY 04/23/2011 799.22 Affect Irritable 04/23/2011 V58.69 taking high-risk medication 04/23/2011 V70.0 Preventive Medicine Estab Patient Checkup Adult 40-64 04/23/2011 PHILIPPE SALGUERO DO 724.4 LUMBAR RADICULOPATHY 04/23/2011 PHILIPPE SALGUERO DO 799.22 Affect Irritable 04/23/2011 PHILIPPE SALGUERO DO V58.69 taking high-risk medication 04/23/2011 PHILIPPE SALGUERO DO V70.0 Preventive Medicine Estab Patient Checkup Adult 40-64 04/23/2011 724.4 LUMBAR RADICULOPATHY 04/23/2011 799.22 Affect Irritable 04/23/2011 V58.69 taking high-risk medication 04/23/2011 V70.0 Preventive Medicine Estab Patient Checkup Adult 40-64 04/23/2011 724.4 LUMBAR RADICULOPATHY 04/23/2011 799.22 Affect Irritable 04/23/2011 V58.69 taking high-risk medication 04/23/2011 V70.0 Preventive Medicine Estab Patient Checkup Adult 40-64 04/23/2011 PHILIPPE SALGUERO DO 724.4 LUMBAR RADICULOPATHY 04/23/2011 PHILIPPE SALGUERO DO 799.22 Affect Irritable 04/23/2011 PHILIPPE SALGUERO DO V58.69 taking high-risk medication 04/23/2011 PHILIPPE SALGUERO DO V70.0 Preventive Medicine Estab Patient Checkup Adult 40-64 04/23/2011 PHILIPPE SALGUERO DO 724.4 LUMBAR RADICULOPATHY 04/23/2011 SALGUERO DO, PHILIPPE K 799.22 Affect Irritable 04/23/2011 SALGUERO DO, PHILIPPE K V58.69 taking high-risk medication 04/23/2011 SALGUERO DO, PHILIPPE K V70.0 Preventive Medicine Estab Patient Checkup Adult 40-64 04/23/2011 SALGUERO DO, PHILIPPE K 724.4 LUMBAR RADICULOPATHY 04/23/2011 SALGUERO DO, PHILIPPE K 799.22 Affect Irritable 04/23/2011 SALGUERO DO, PHILIPPE K V58.69 taking high-risk medication 04/23/2011 SALGUERO DO, PHILIPPE K V70.0 Preventive Medicine Estab Patient Checkup Adult 40-64 04/23/2011 SALGUERO DO, PHILIPPE K 724.4 LUMBAR RADICULOPATHY 04/23/2011 SALGUERO DO, PHILIPPE K 799.22 Affect Irritable 04/23/2011 SALGUERO DO, PHILIPPE K V58.69 taking high-risk medication 04/23/2011 SALGUERO DO, PHILIPPE K V70.0 Preventive Medicine Estab Patient Checkup Adult 40-64 04/23/2011 SALGUERO DO, PHILIPPE K 724.4 LUMBAR RADICULOPATHY 04/23/2011 SALGUERO DO, PHILIPPE K 799.22 Affect Irritable 04/23/2011 SALGUERO DO, PHILIPPE K V58.69 taking high-risk medication 04/23/2011 SALGUERO DO, PHILIPPE K V70.0 Preventive Medicine Estab Patient Checkup Adult 40-64 04/23/2011 SALGUERO DO, PHILIPPE K 724.4 LUMBAR RADICULOPATHY 04/23/2011 SALGUERO DO, PHILIPPE K 799.22 Affect Irritable 04/23/2011 SALGUERO DO, PHILIPPE K V58.69 taking high-risk medication 04/23/2011 SALGUERO DO, PHILIPPE K V70.0 Preventive Medicine Estab Patient Checkup Adult 40-64 04/23/2011 SALGUERO DO, PHILIPPE K 724.4 LUMBAR RADICULOPATHY 04/23/2011 SALGUERO DO, PHILIPPE K 799.22 Affect Irritable 04/23/2011 SALGUERO DO, PHILIPPE K V58.69 taking high-risk medication 04/23/2011 SALGUERO DO, PHILIPPE K V70.0 Preventive Medicine Estab Patient Checkup Adult 40-64 04/23/2011 SALGUERO DO, PHILIPPE K 724.4 LUMBAR RADICULOPATHY 04/23/2011 SALGUERO DO, PHILIPPE K 799.22 Affect Irritable 04/23/2011 SALGUERO DO, PHILIPPE K V58.69 taking high-risk medication 04/23/2011 SALGUERO DO, PHILIPPE K V70.0 Preventive Medicine Estab Patient Checkup Adult 40-64 04/23/2011 SALGUERO DO, PHILIPPE K 724.4 LUMBAR RADICULOPATHY 04/23/2011 SALGUERO DO PHILIPPE K 799.22 Affect Irritable 04/23/2011 SALGUERO DO, PHILIPPE K V58.69 taking high-risk medication 04/23/2011 SALGUERO DO, PHILIPPE K V70.0 Preventive Medicine Estab Patient Checkup Adult 40-64 04/23/2011 WHITE DDS, DEEDEE J 724.4 LUMBAR RADICULOPATHY 04/23/2011 WHITE DDS, DEEDEE J 799.22 Affect Irritable 04/23/2011 WHITE DDSSARABJITON J V58.69 taking high-risk medication 04/23/2011 WHITE DDSDEEDEE J V70.0 Preventive Medicine Estab Patient Checkup Adult 40-64 04/23/2011 MAEVE NARAYANAN PA-C 724.4 LUMBAR RADICULOPATHY 04/23/2011 MAEVE NARAYANAN PA-C 799.22 Affect Irritable 04/23/2011 MAEVE NARAYANAN PA-C V58.69 taking high-risk medication 04/23/2011 MAEVE NARAYANAN PA-C V70.0 Preventive Medicine Estab Patient Checkup Adult 40-64 04/23/2011 SALGUERO DOTANISHAA K 724.4 LUMBAR RADICULOPATHY 04/23/2011 SALGUERO DO PHILIPPE K 799.22 Affect Irritable 04/23/2011 SALGUERO DO PHILIPPE K V58.69 taking high-risk medication 04/23/2011 SALGUERO DO PHILIPPE K V70.0 Preventive Medicine Estab Patient Checkup Adult 40-64 04/23/2011 WHITE DDS, DEEDEE J 724.4 LUMBAR RADICULOPATHY 04/23/2011 WHITE DDS, DEEDEE J 799.22 Affect Irritable 04/23/2011 WHITE DDS, DEEDEE J V58.69 taking high-risk medication 04/23/2011 WHITE DDS, DEEDEE J V70.0 Preventive Medicine Estab Patient Checkup Adult 40-64 04/23/2011 BOY LUND APRN J 724.4 LUMBAR RADICULOPATHY 04/23/2011 BOY LUND APRN J 799.22 Affect Irritable 04/23/2011 BOY LUND APRN J V58.69 taking high-risk medication 04/23/2011 BOY LUND APRN J V70.0 Preventive Medicine Estab Patient Checkup Adult 40-64 04/23/2011 SALGUERO DO PHILIPPE K 724.4 LUMBAR RADICULOPATHY 04/23/2011 SALGUERO DO PHILIPPE K 799.22 Affect Irritable 04/23/2011 SALGUERO DO PHILIPPE K V58.69 taking high-risk medication 04/23/2011 SALGUERO DO PHILIPPE K V70.0 Preventive Medicine Estab Patient Checkup Adult 40-64 04/23/2011 SALGUERO DO PHILIPPE K 724.4 LUMBAR RADICULOPATHY 04/23/2011 SALGUERO DO PHILIPPE K 799.22 Affect Irritable 04/23/2011 SALGUERO DO PHILIPPE K V58.69 taking high-risk medication 04/23/2011 SALGUERO DO PHILIPPE K V70.0 Preventive Medicine Estab Patient Checkup Adult 40-64 04/23/2011 BOY LUND APRN J 724.4 LUMBAR RADICULOPATHY 04/23/2011 BOY LUND APRN J 799.22 Affect Irritable 04/23/2011 BOY LUND APRN V58.69 taking high-risk medication 04/23/2011 BOY LUND APRN V70.0 Preventive Medicine Estab Patient Checkup Adult 40-64 04/23/2011 WHITE DDS, DEEDEE J 724.4 LUMBAR RADICULOPATHY 04/23/2011 WHITE DDS, DEEDEE J 799.22 Affect Irritable 04/23/2011 WHITE DDS, DEEDEE J V58.69 taking high-risk medication 04/23/2011 WHITE DDS, DEEDEE J V70.0 Preventive Medicine Estab Patient Checkup Adult 40-64 04/23/2011 WHITE DDS, DEEDEE J 724.4 LUMBAR RADICULOPATHY 04/23/2011 WHITE DDS, DEEDEE J 799.22 Affect Irritable 04/23/2011 WHITE DDS, DEEDEE J V58.69 taking high-risk medication 04/23/2011 DEEDEE SHORT DDS V70.0 Preventive Medicine Estab Patient Checkup Adult 40-64 04/23/2011 PHILIPPE SALGUERO DO K 724.4 LUMBAR RADICULOPATHY 04/23/2011 TANISHA SALGUERO DOA K 799.22 Affect Irritable 04/23/2011 TANISHA SALGUERO DOA K V58.69 taking high-risk medication 04/23/2011 TANISHA SALGUERO DOA K V70.0 Preventive Medicine Estab Patient Checkup Adult 40-64 04/23/2011 BOY LUND APRN 724.4 LUMBAR RADICULOPATHY 04/23/2011 BOY LUND APRN 799.22 Affect Irritable 04/23/2011 BOY LUND APRN V58.69 taking high-risk medication 04/23/2011 BOY LUND APRN V70.0 Preventive Medicine Estab Patient Checkup Adult 40-64 04/23/2011 BOY LUND APRN 724.4 LUMBAR RADICULOPATHY 04/23/2011 BOY LUND APRN 799.22 Affect Irritable 04/23/2011 JUAREZ LUND APRNA J V58.69 taking high-risk medication 04/23/2011 BOY LUND APRN V70.0 Preventive Medicine Estab Patient Checkup Adult 40-64 04/23/2011 BOY LUND APRN 724.4 LUMBAR RADICULOPATHY 04/23/2011 BOY LUND APRN 799.22 Affect Irritable 04/23/2011 JUAREZ LUND APRNA Marine V58.69 taking high-risk medication 04/23/2011 BOY LUND APRN J V70.0 Preventive Medicine Estab Patient Checkup Adult 40-64 04/23/2011 BOY LUND APRN J 724.4 LUMBAR RADICULOPATHY 04/23/2011 BOY LUND APRN J 799.22 Affect Irritable 04/23/2011 JUAREZ LUND APRNA J V58.69 taking high-risk medication 04/23/2011 JUAREZ LUND APRNA J V70.0 Preventive Medicine Estab Patient Checkup Adult 40-64 04/23/2011 SALGUERO DO, PHILIPPE K 724.4 LUMBAR RADICULOPATHY 04/23/2011 SALGUERO DO, PHILIPPE K 799.22 Affect Irritable 04/23/2011 SALGUERO DO, PHILIPPE K V58.69 taking high-risk medication 04/23/2011 SALGUERO DO, PHILIPPE K V70.0 Preventive Medicine Estab Patient Checkup Adult 40-64 04/23/2011 SALGUERO DO, PHILIPPE K 724.4 LUMBAR RADICULOPATHY 04/23/2011 SALGUERO DO, PHILIPPE K 799.22 Affect Irritable 04/23/2011 SALGUERO DO, PHILIPPE K V58.69 taking high-risk medication 04/23/2011 SALGUERO DO, PHILIPPE K V70.0 Preventive Medicine Estab Patient Checkup Adult 40-64 04/23/2011 BOY LUND APRN 724.4 LUMBAR RADICULOPATHY 04/23/2011 BOY LUND APRN 799.22 Affect Irritable 04/23/2011 BOY LUND APRN V58.69 taking high-risk medication 04/23/2011 BOY LUND APRN V70.0 Preventive Medicine Estab Patient Checkup Adult 40-64 04/23/2011 BOY LUND APRN 724.4 LUMBAR RADICULOPATHY 04/23/2011 BOY LUND APRN 799.22 Affect Irritable 04/23/2011 BOY LUND APRN V58.69 taking high-risk medication 04/23/2011 BOY LUND APRN V70.0 Preventive Medicine Estab Patient Checkup Adult 40-64 04/23/2011 BOY LUND APRN 724.4 LUMBAR RADICULOPATHY 04/23/2011 BOY LUND APRN J 799.22 Affect Irritable 04/23/2011 BOY LUND APRN J V58.69 taking high-risk medication 04/23/2011 BOY LUND APRN J V70.0 Preventive Medicine Estab Patient Checkup Adult 40-64 04/23/2011 SALGUERO DO PHILIPPE K 724.4 LUMBAR RADICULOPATHY 04/23/2011 SALGUERO DO PHILIPPE K 799.22 Affect Irritable 04/23/2011 SALGUERO DO PHILIPPE K V58.69 taking high-risk medication 04/23/2011 NOEMY OLVERA PHILIPPE K V70.0 Preventive Medicine Estab Patient Checkup Adult 40-64 04/23/2011 BOY LUND APRN 724.4 LUMBAR RADICULOPATHY 04/23/2011 BOY LUND APRN 799.22 Affect Irritable 04/23/2011 BOY LUND APRN V58.69 taking high-risk medication 04/23/2011 BOY LUND APRN V70.0 Preventive Medicine Estab Patient Checkup Adult 40-64 04/23/2011 [facility], JACKIE R 724.4 LUMBAR RADICULOPATHY 04/23/2011 [facility], [place] R 799.22 Affect Irritable 04/23/2011 [facility], [facility] R V58.69 taking high-risk medication 04/23/2011 [facility], [place] R V70.0 Preventive Medicine Estab Patient Checkup Adult 40-64 04/23/2011 TANISHA SALGUERO DOA K 724.4 LUMBAR RADICULOPATHY 04/23/2011 TANISHA SALGUERO DOA K 799.22 Affect Irritable 04/23/2011 TANISHA SALGUERO DOA K V58.69 taking high-risk medication 04/23/2011 TANISHA SALGUERO DOA K V70.0 Preventive Medicine Estab Patient Checkup Adult 40-64 04/23/2011 TANISHA SALGUERO DOA K 724.4 LUMBAR RADICULOPATHY 04/23/2011 TANISHA SALGUERO DOA K 799.22 Affect Irritable 04/23/2011 NOEMY OLVERA PHILIPPE K V58.69 taking high-risk medication 04/23/2011 TANISHA SALGUERO DOA K V70.0 Preventive Medicine Estab Patient Checkup Adult 40-64 04/23/2011 CHRIS WINTER APRN A 724.4 LUMBAR RADICULOPATHY 04/23/2011 CHRIS WINTER APRN A 799.22 Affect Irritable 04/23/2011 CHRIS WINTER APRN V58.69 taking high-risk medication 04/23/2011 CHRIS WINTER APRN V70.0 Preventive Medicine Estab Patient Checkup Adult 40-64 04/23/2011 TANISHA SALGUERO DOA K 724.4 LUMBAR RADICULOPATHY 04/23/2011 TANISHA SALGUERO DOA K 799.22 Affect Irritable 04/23/2011 SALGUERO DO PHILIPPE K V58.69 taking high-risk medication 04/23/2011 SALGUERO DO PHILIPPE K V70.0 Preventive Medicine Estab Patient Checkup Adult 40-64 04/23/2011 ASHELY VASQUES, BOY J 724.4 LUMBAR RADICULOPATHY 04/23/2011 ASHELY VASQUES, BOY J 799.22 Affect Irritable 04/23/2011 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, BOY J V58.69 taking high-risk medication 04/23/2011 ASHELY VASQUES, BOY J V70.0 Preventive Medicine Estab Patient Checkup Adult 40-64 04/23/2011 SALGUERO DO PHILIPPE K 724.4 LUMBAR RADICULOPATHY 04/23/2011 NOEMY OLVERA PHILIPPE K 799.22 Affect Irritable 04/23/2011 SALGUERO DO PHILIPPE K V58.69 taking high-risk medication 04/23/2011 SALGUERO DO PHILIPPE K V70.0 Preventive Medicine Estab Patient Checkup Adult 40-64 05/07/2011 112.1 CANDIDIASIS VAGINAL 05/07/2011 276.51 DEHYDRATION (Na, H2O) 05/07/2011 477.9 Rhinitis 05/07/2011 564.00 CONSTIPATION 05/07/2011 MUOGHALU DDS, LOBO N 112.1 CANDIDIASIS VAGINAL 05/07/2011 MUOGHALU DDS, LOBO N 276.51 DEHYDRATION (Na, H2O) 05/07/2011 MUOGHALU DDS, LOBO N 477.9 Rhinitis 05/07/2011 MUOGHALU DDS, LOBO N 564.00 CONSTIPATION 05/07/2011 112.1 CANDIDIASIS VAGINAL 05/07/2011 276.51 DEHYDRATION (Na, H2O) 05/07/2011 477.9 Rhinitis 05/07/2011 564.00 CONSTIPATION 05/07/2011 SALGUERO DO, PHILIPPE K 112.1 CANDIDIASIS VAGINAL 05/07/2011 SALGUERO DO, PHILIPPE K 276.51 DEHYDRATION (Na, H2O) 05/07/2011 SALGUERO DO, PHILIPPE K 477.9 Rhinitis 05/07/2011 SALGUERO DO, PHILIPPE K 564.00 CONSTIPATION 05/07/2011 SALGUERO DO PHILIPPE K 112.1 CANDIDIASIS VAGINAL 05/07/2011 SALGUERO DO PHILIPPE K 276.51 DEHYDRATION (Na, H2O) 05/07/2011 SALGUERO DO, PHILIPPE K 477.9 Rhinitis 05/07/2011 SALGUERO DO, PHILIPPE K 564.00 CONSTIPATION 05/07/2011 SALGUERO DO, PHILIPPE K 112.1 CANDIDIASIS VAGINAL 05/07/2011 SALGUERO DO, PHILIPPE K 276.51 DEHYDRATION (Na, H2O) 05/07/2011 SALGUERO DO, PHILIPPE K 477.9 Rhinitis 05/07/2011 SALGUERO DO, PHILIPPE K 564.00 CONSTIPATION 05/07/2011 112.1 CANDIDIASIS VAGINAL 05/07/2011 276.51 DEHYDRATION (Na, H2O) 05/07/2011 477.9 Rhinitis 05/07/2011 564.00 CONSTIPATION 05/07/2011 112.1 CANDIDIASIS VAGINAL 05/07/2011 276.51 DEHYDRATION (Na, H2O) 05/07/2011 477.9 Rhinitis 05/07/2011 564.00 CONSTIPATION 05/07/2011 112.1 CANDIDIASIS VAGINAL 05/07/2011 276.51 DEHYDRATION (Na, H2O) 05/07/2011 477.9 Rhinitis 05/07/2011 564.00 CONSTIPATION 05/07/2011 112.1 CANDIDIASIS VAGINAL 05/07/2011 276.51 DEHYDRATION (Na, H2O) 05/07/2011 477.9 Rhinitis 05/07/2011 564.00 CONSTIPATION 05/07/2011 112.1 CANDIDIASIS VAGINAL 05/07/2011 276.51 DEHYDRATION (Na, H2O) 05/07/2011 477.9 Rhinitis 05/07/2011 564.00 CONSTIPATION 05/07/2011 112.1 CANDIDIASIS VAGINAL 05/07/2011 276.51 DEHYDRATION (Na, H2O) 05/07/2011 477.9 Rhinitis 05/07/2011 564.00 CONSTIPATION 05/07/2011 SALGUERO DO, PHILIPPE K 112.1 CANDIDIASIS VAGINAL 05/07/2011 SALGUERO DO, PHILIPPE K 276.51 DEHYDRATION (Na, H2O) 05/07/2011 SALGUERO DO, PHILIPPE K 477.9 Rhinitis 05/07/2011 SALGUERO DO, PHILIPPE K 564.00 CONSTIPATION 05/07/2011 112.1 CANDIDIASIS VAGINAL 05/07/2011 276.51 DEHYDRATION (Na, H2O) 05/07/2011 477.9 Rhinitis 05/07/2011 564.00 CONSTIPATION 05/07/2011 112.1 CANDIDIASIS VAGINAL 05/07/2011 276.51 DEHYDRATION (Na, H2O) 05/07/2011 477.9 Rhinitis 05/07/2011 564.00 CONSTIPATION 05/07/2011 SALGUERO DO, PHILIPPE K 112.1 CANDIDIASIS VAGINAL 05/07/2011 SALGUERO DO, PHILIPPE K 276.51 DEHYDRATION (Na, H2O) 05/07/2011 SALGUERO DO, PHILIPPE K 477.9 Rhinitis 05/07/2011 SALGUERO DO, PHILIPPE K 564.00 CONSTIPATION 05/07/2011 SALGUERO DO, PHILIPPE K 112.1 CANDIDIASIS VAGINAL 05/07/2011 SALGUERO DO, PHILIPPE K 276.51 DEHYDRATION (Na, H2O) 05/07/2011 SALGUERO DO, PHILIPPE K 477.9 Rhinitis 05/07/2011 SALGUERO DO, PHILIPPE K 564.00 CONSTIPATION 05/07/2011 SALGUERO DO, PHILIPPE K 112.1 CANDIDIASIS VAGINAL 05/07/2011 SALGUERO DO, PHILIPPE K 276.51 DEHYDRATION (Na, H2O) 05/07/2011 SALGUERO DO, PHILIPPE K 477.9 Rhinitis 05/07/2011 SALGUERO DO, PHILIPPE K 564.00 CONSTIPATION 05/07/2011 SALGUERO DO, PHILIPPE K 112.1 CANDIDIASIS VAGINAL 05/07/2011 SALGUERO DO, PHILIPPE K 276.51 DEHYDRATION (Na, H2O) 05/07/2011 SALGUERO DO, PHILIPPE K 477.9 Rhinitis 05/07/2011 SALGUERO DO, PHILIPPE K 564.00 CONSTIPATION 05/07/2011 SALGUERO DO, PHILIPPE K 112.1 CANDIDIASIS VAGINAL 05/07/2011 SALGUERO DO, PHILIPPE K 276.51 DEHYDRATION (Na, H2O) 05/07/2011 SALGUERO DO, PHILIPPE K 477.9 Rhinitis 05/07/2011 SALGUERO DO, PHILIPPE K 564.00 CONSTIPATION 05/07/2011 SALGUERO DO, PHILIPPE K 112.1 CANDIDIASIS VAGINAL 05/07/2011 SALGUERO DO, PHILIPPE K 276.51 DEHYDRATION (Na, H2O) 05/07/2011 SALGUERO DO, PHILIPPE K 477.9 Rhinitis 05/07/2011 SALGUERO DO, PHILIPPE K 564.00 CONSTIPATION 05/07/2011 SALGUERO DO, PHILIPPE K 112.1 CANDIDIASIS VAGINAL 05/07/2011 SALGUERO DO, PHILIPPE K 276.51 DEHYDRATION (Na, H2O) 05/07/2011 SALGUERO DO, PHILIPPE K 477.9 Rhinitis 05/07/2011 SALGUERO DO, PHILIPPE K 564.00 CONSTIPATION 05/07/2011 SALGUERO DO, PHILIPPE K 112.1 CANDIDIASIS VAGINAL 05/07/2011 SALGUERO DO, PHILIPPE K 276.51 DEHYDRATION (Na, H2O) 05/07/2011 SALGUERO DO, PHILIPPE K 477.9 Rhinitis 05/07/2011 SALGUERO DO, PHILIPPE K 564.00 CONSTIPATION 05/07/2011 SALGUERO DO, PHILIPPE K 112.1 CANDIDIASIS VAGINAL 05/07/2011 SALGUERO , PHILIPPE K 276.51 DEHYDRATION (Na, H2O) 05/07/2011 SALGUERO DO, PHILIPPE K 477.9 Rhinitis 05/07/2011 SALGUERO DO, PHILIPPE K 564.00 CONSTIPATION 05/07/2011 WHITE DDS, DEEDEE J 112.1 CANDIDIASIS VAGINAL 05/07/2011 WHITE DDS, DEEDEE J 276.51 DEHYDRATION (Na, H2O) 05/07/2011 WHITE DDS, DEEDEE J 477.9 Rhinitis 05/07/2011 WHITE DDS, DEEDEE J 564.00 CONSTIPATION 05/07/2011 MAEVE NARAYANAN PA-C 112.1 CANDIDIASIS VAGINAL 05/07/2011 MAEVE NARAYANAN PA-C 276.51 DEHYDRATION (Na, H2O) 05/07/2011 MAEVE NARAYANAN PA-C 477.9 Rhinitis 05/07/2011 MAEVE NARAYANAN PA-C 564.00 CONSTIPATION 05/07/2011 NOEMY OLVERA PHILIPPE K 112.1 CANDIDIASIS VAGINAL 05/07/2011 TANISHA SALGUERO DOA K 276.51 DEHYDRATION (Na, H2O) 05/07/2011 NOEMY OLVERA, PHILIPPE K 477.9 Rhinitis 05/07/2011 NOEMY OLVERA PHILIPPE K 564.00 CONSTIPATION 05/07/2011 WHITE DDS, DEEDEE J 112.1 CANDIDIASIS VAGINAL 05/07/2011 WHITE DDS, DEEDEE J 276.51 DEHYDRATION (Na, H2O) 05/07/2011 WHITE DDS, DEEDEE J 477.9 Rhinitis 05/07/2011 WHITE DDS, DEEDEE J 564.00 CONSTIPATION 05/07/2011 BOY LUND APRN J 112.1 CANDIDIASIS VAGINAL 05/07/2011 BOY LUND APRN J 276.51 DEHYDRATION (Na, H2O) 05/07/2011 ASHELY SPANGLERNBOY J 477.9 Rhinitis 05/07/2011 JUAREZ LUND APRNA J 564.00 CONSTIPATION 05/07/2011 SALGUERO DO, PHILIPPE K 112.1 CANDIDIASIS VAGINAL 05/07/2011 SALGUERO DO, PHILIPPE K 276.51 DEHYDRATION (Na, H2O) 05/07/2011 SALGUERO DO, PHILIPPE K 477.9 Rhinitis 05/07/2011 SALGUERO DO, PHILIPPE K 564.00 CONSTIPATION 05/07/2011 SALGUERO DO, PHILIPPE K 112.1 CANDIDIASIS VAGINAL 05/07/2011 SALGUERO DO, PHILIPPE K 276.51 DEHYDRATION (Na, H2O) 05/07/2011 SALGUERO DO, PHILIPPE K 477.9 Rhinitis 05/07/2011 SALGUERO DO, PHILIPPE K 564.00 CONSTIPATION 05/07/2011 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JUAREZA J 112.1 CANDIDIASIS VAGINAL 05/07/2011 BOY LUND APRN J 276.51 DEHYDRATION (Na, H2O) 05/07/2011 JUAREZ LUND APRNA J 477.9 Rhinitis 05/07/2011 JUAREZ LUND APRNA J 564.00 CONSTIPATION 05/07/2011 WHITE DDS, DEEDEE J 112.1 CANDIDIASIS VAGINAL 05/07/2011 WHITE DDS, DEEDEE J 276.51 DEHYDRATION (Na, H2O) 05/07/2011 WHITE DDS, DEEDEE J 477.9 Rhinitis 05/07/2011 WHITE DDS, DEEDEE J 564.00 CONSTIPATION 05/07/2011 WHITE DDS, DEEDEE J 112.1 CANDIDIASIS VAGINAL 05/07/2011 WHITE DDS, DEEDEE J 276.51 DEHYDRATION (Na, H2O) 05/07/2011 WHITE DDS, DEEDEE J 477.9 Rhinitis 05/07/2011 WHITE DDS, DEEDEE J 564.00 CONSTIPATION 05/07/2011 SALGUERO DO, PHILIPPE K 112.1 CANDIDIASIS VAGINAL 05/07/2011 SALGUERO DO, PHILIPPE K 276.51 DEHYDRATION (Na, H2O) 05/07/2011 SALGUERO DO, PHILIPPE K 477.9 Rhinitis 05/07/2011 SALGUERO DO, PHILIPPE K 564.00 CONSTIPATION 05/07/2011 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JUAREZA J 112.1 CANDIDIASIS VAGINAL 05/07/2011 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JUAREZA J 276.51 DEHYDRATION (Na, H2O) 05/07/2011 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, BOY J 477.9 Rhinitis 05/07/2011 ASHELY VASQUES BOY J 564.00 CONSTIPATION 05/07/2011 JUAREZ LUND APRNA J 112.1 CANDIDIASIS VAGINAL 05/07/2011 BOY LUND APRN J 276.51 DEHYDRATION (Na, H2O) 05/07/2011 JUAREZ LUND APRNA J 477.9 Rhinitis 05/07/2011 ASHELY SPANGLERN, BOY J 564.00 CONSTIPATION 05/07/2011 ASHELY SPANGLERNJUAREZA J 112.1 CANDIDIASIS VAGINAL 05/07/2011 BOY LUND APRN J 276.51 DEHYDRATION (Na, H2O) 05/07/2011 JUAREZ LUND APRNA J 477.9 Rhinitis 05/07/2011 JUAREZ LUND APRNA J 564.00 CONSTIPATION 05/07/2011 BOY LUND APRN J 112.1 CANDIDIASIS VAGINAL 05/07/2011 BOY LUND APRN J 276.51 DEHYDRATION (Na, H2O) 05/07/2011 BOY LUND APRN J 477.9 Rhinitis 05/07/2011 BOY LUND APRN J 564.00 CONSTIPATION 05/07/2011 SALGUERO DO, PHILIPPE K 112.1 CANDIDIASIS VAGINAL 05/07/2011 SALGUERO DO, PHILIPPE K 276.51 DEHYDRATION (Na, H2O) 05/07/2011 SALGUERO DO, PHILIPPE K 477.9 Rhinitis 05/07/2011 SALGUERO DO, PHILIPPE K 564.00 CONSTIPATION 05/07/2011 SALGUERO DO, PHILIPPE K 112.1 CANDIDIASIS VAGINAL 05/07/2011 SALGUERO DO, PHILIPPE K 276.51 DEHYDRATION (Na, H2O) 05/07/2011 SALGUERO DO, PHILIPPE K 477.9 Rhinitis 05/07/2011 SALGUERO DO, PHILIPPE K 564.00 CONSTIPATION 05/07/2011 JUAREZ LUND APRNA J 112.1 CANDIDIASIS VAGINAL 05/07/2011 JUAREZ LUND APRNA J 276.51 DEHYDRATION (Na, H2O) 05/07/2011 JUAREZ LUND APRNA J 477.9 Rhinitis 05/07/2011 JUAREZ LUND APRNA J 564.00 CONSTIPATION 05/07/2011 JUAREZ LNUD APRNA J 112.1 CANDIDIASIS VAGINAL 05/07/2011 JUAREZ LUND APRNA J 276.51 DEHYDRATION (Na, H2O) 05/07/2011 BOY LUND APRN 477.9 Rhinitis 05/07/2011 BOY LUND APRN 564.00 CONSTIPATION 05/07/2011 BOY LUND APRN J 112.1 CANDIDIASIS VAGINAL 05/07/2011 BOY LUND APRN J 276.51 DEHYDRATION (Na, H2O) 05/07/2011 BOY LUND APRN 477.9 Rhinitis 05/07/2011 BOY LUND APRN J 564.00 CONSTIPATION 05/07/2011 SALGUERO DO, PHILIPPE K 112.1 CANDIDIASIS VAGINAL 05/07/2011 SALGUERO DO, PHILIPPE K 276.51 DEHYDRATION (Na, H2O) 05/07/2011 SALGUERO DO, PHILIPPE K 477.9 Rhinitis 05/07/2011 SALGUERO DO, PHILIPPE K 564.00 CONSTIPATION 05/07/2011 BOY LUND APRN J 112.1 CANDIDIASIS VAGINAL 05/07/2011 BOY LUND APRN J 276.51 DEHYDRATION (Na, H2O) 05/07/2011 BOY LUND APRN 477.9 Rhinitis 05/07/2011 BOY LUND APRN J 564.00 CONSTIPATION 05/07/2011 [facility], JACKIE R 112.1 CANDIDIASIS VAGINAL 05/07/2011 [facility], JACKIE R 276.51 DEHYDRATION (Na, H2O) 05/07/2011 [facility], JACKIE R 477.9 Rhinitis 05/07/2011 [facility], JACKIE R 564.00 CONSTIPATION 05/07/2011 SALGUEOR DO, PHILIPPE K 112.1 CANDIDIASIS VAGINAL 05/07/2011 SALGUERO DO, PHILIPPE K 276.51 DEHYDRATION (Na, H2O) 05/07/2011 SALGUERO DO, PHILIPPE K 477.9 Rhinitis 05/07/2011 SALGUERO DO, PHILIPPE K 564.00 CONSTIPATION 05/07/2011 SALGUERO DO, PHILIPPE K 112.1 CANDIDIASIS VAGINAL 05/07/2011 SALGUERO DO, PHILIPPE K 276.51 DEHYDRATION (Na, H2O) 05/07/2011 SALGUERO DO, PHILIPPE K 477.9 Rhinitis 05/07/2011 SALGUERO DO, PHILIPPE K 564.00 CONSTIPATION 05/07/2011 MOYCHRIS Curiel APRN A 112.1 CANDIDIASIS VAGINAL 05/07/2011 MOYCHRIS Curiel APRN A 276.51 DEHYDRATION (Na, H2O) 05/07/2011 MOYCHRIS Curiel APRN A 477.9 Rhinitis 05/07/2011 MOY GROCERY DELIVERER, CHRIS A 564.00 CONSTIPATION 05/07/2011 SALGUERO DO, PHILIPPE K 112.1 CANDIDIASIS VAGINAL 05/07/2011 SALGUERO DO, PHILIPPE K 276.51 DEHYDRATION (Na, H2O) 05/07/2011 SALGUERO DO, PHILIPPE K 477.9 Rhinitis 05/07/2011 SALGUERO DO, PHILIPPE K 564.00 CONSTIPATION 05/07/2011 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, BOY J 112.1 CANDIDIASIS VAGINAL 05/07/2011 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, BOY J 276.51 DEHYDRATION (Na, H2O) 05/07/2011 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, BOY J 477.9 Rhinitis 05/07/2011 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, BOY J 564.00 CONSTIPATION 05/07/2011 SALGUERO DO, PHILIPPE K 112.1 CANDIDIASIS VAGINAL 05/07/2011 SALGUERO DO, PHILIPPE K 276.51 DEHYDRATION (Na, H2O) 05/07/2011 SALGUERO DO, PHILIPPE K 477.9 Rhinitis 05/07/2011 SALGUERO DO, PHILIPPE K 564.00 CONSTIPATION 05/25/2011 338.29 OTHER CHRONIC PAIN 05/25/2011 LOBO CHERY DDS 338.29 OTHER CHRONIC PAIN 05/25/2011 338.29 OTHER CHRONIC PAIN 05/25/2011 SALGUERO DO, PHILIPPE K 338.29 OTHER CHRONIC PAIN 05/25/2011 SALGUERO DO, PHILIPPE K 338.29 OTHER CHRONIC PAIN 05/25/2011 SALGUERO DO, PHILIPPE K 338.29 OTHER CHRONIC PAIN 05/25/2011 338.29 OTHER CHRONIC PAIN 05/25/2011 338.29 OTHER CHRONIC PAIN 05/25/2011 338.29 OTHER CHRONIC PAIN 05/25/2011 338.29 OTHER CHRONIC PAIN 05/25/2011 338.29 OTHER CHRONIC PAIN 05/25/2011 338.29 OTHER CHRONIC PAIN 05/25/2011 SALGUERO DO, PHILIPPE K 338.29 OTHER CHRONIC PAIN 05/25/2011 338.29 OTHER CHRONIC PAIN 05/25/2011 338.29 OTHER CHRONIC PAIN 05/25/2011 SALGUERO DO, PHILIPPE K 338.29 OTHER CHRONIC PAIN 05/25/2011 SALGUERO DO, PHILIPPE K 338.29 OTHER CHRONIC PAIN 05/25/2011 SALGUERO DO, PHILIPPE K 338.29 OTHER CHRONIC PAIN 05/25/2011 SALGUERO DO, PHILIPPE K 338.29 OTHER CHRONIC PAIN 05/25/2011 SALGUERO DO, PHILIPPE K 338.29 OTHER CHRONIC PAIN 05/25/2011 SALGUERO DO, PHILIPPE K 338.29 OTHER CHRONIC PAIN 05/25/2011 SALGUERO DO, PHILIPPE K 338.29 OTHER CHRONIC PAIN 05/25/2011 SALGUERO DO, PHILIPPE K 338.29 OTHER CHRONIC PAIN 05/25/2011 SALGUERO DO, PHILIPPE K 338.29 OTHER CHRONIC PAIN 05/25/2011 WHITE DDS, DEEDEE J 338.29 OTHER CHRONIC PAIN 05/25/2011 MAEVE NARAYANAN PA-C 338.29 OTHER CHRONIC PAIN 05/25/2011 SALGUERO DO, PHILIPPE K 338.29 OTHER CHRONIC PAIN 05/25/2011 WHITE DDS, DEEDEE J 338.29 OTHER CHRONIC PAIN 05/25/2011 JUAREZ LUND APRNA J 338.29 OTHER CHRONIC PAIN 05/25/2011 SALGUERO DO, PHILIPPE K 338.29 OTHER CHRONIC PAIN 05/25/2011 SALGUERO DO, PHILIPPE K 338.29 OTHER CHRONIC PAIN 05/25/2011 BOY LUND APRN J 338.29 OTHER CHRONIC PAIN 05/25/2011 WHITE DDS, DEEDEE J 338.29 OTHER CHRONIC PAIN 05/25/2011 WHITE DDS, DEEDEE J 338.29 OTHER CHRONIC PAIN 05/25/2011 SALGUERO DO, PHILIPPE K 338.29 OTHER CHRONIC PAIN 05/25/2011 JUAREZ LUND APRNA J 338.29 OTHER CHRONIC PAIN 05/25/2011 JUAREZ LUND APRNA J 338.29 OTHER CHRONIC PAIN 05/25/2011 JUAREZ LUND APRNA J 338.29 OTHER CHRONIC PAIN 05/25/2011 JUAREZ LUND APRNA J 338.29 OTHER CHRONIC PAIN 05/25/2011 SALGUERO DO, PHILIPPE K 338.29 OTHER CHRONIC PAIN 05/25/2011 SALGUERO DO, PHILIPPE K 338.29 OTHER CHRONIC PAIN 05/25/2011 JUAREZ LUND APRNA J 338.29 OTHER CHRONIC PAIN 05/25/2011 JUAREZ LUND APRNA J 338.29 OTHER CHRONIC PAIN 05/25/2011 JUAREZ LUND APRNA J 338.29 OTHER CHRONIC PAIN 05/25/2011 SALGUERO DO, PHILIPPE K 338.29 OTHER CHRONIC PAIN 05/25/2011 JUAREZ LUND APRNA J 338.29 OTHER CHRONIC PAIN 05/25/2011 [facility], JACKIE R 338.29 OTHER CHRONIC PAIN 05/25/2011 SALGUERO DO, PHILIPPE K 338.29 OTHER CHRONIC PAIN 05/25/2011 SALGUERO DO, PHILIPPE K 338.29 OTHER CHRONIC PAIN 05/25/2011 CHRIS WINTER APRN 338.29 OTHER CHRONIC PAIN 05/25/2011 SALGUERO DO, PHILIPPE K 338.29 OTHER CHRONIC PAIN 05/25/2011 BOY LUND APRN 338.29 OTHER CHRONIC PAIN 05/25/2011 SALGUERO DO, PHILIPPE K 338.29 OTHER CHRONIC PAIN 05/30/2011 522.5 PERIAPICAL ALVEOLAR ABSCESS 05/30/2011 LOBO CHERY DDS 522.5 PERIAPICAL ALVEOLAR ABSCESS 05/30/2011 522.5 PERIAPICAL ALVEOLAR ABSCESS 05/30/2011 TANISHA SALGUERO DOA K 522.5 PERIAPICAL ALVEOLAR ABSCESS 05/30/2011 SALGUERO DO PHILIPPE K 522.5 PERIAPICAL ALVEOLAR ABSCESS 05/30/2011 SALGUERO DO PHILIPPE K 522.5 PERIAPICAL ALVEOLAR ABSCESS 05/30/2011 522.5 PERIAPICAL ALVEOLAR ABSCESS 05/30/2011 522.5 PERIAPICAL ALVEOLAR ABSCESS 05/30/2011 522.5 PERIAPICAL ALVEOLAR ABSCESS 05/30/2011 522.5 PERIAPICAL ALVEOLAR ABSCESS 05/30/2011 522.5 PERIAPICAL ALVEOLAR ABSCESS 05/30/2011 522.5 PERIAPICAL ALVEOLAR ABSCESS 05/30/2011 SALGUERO DO PHILIPPE K 522.5 PERIAPICAL ALVEOLAR ABSCESS 05/30/2011 522.5 PERIAPICAL ALVEOLAR ABSCESS 05/30/2011 522.5 PERIAPICAL ALVEOLAR ABSCESS 05/30/2011 SALGUERO TANISHA OLVERAA K 522.5 PERIAPICAL ALVEOLAR ABSCESS 05/30/2011 SALGUERO DO, PHILIPPE K 522.5 PERIAPICAL ALVEOLAR ABSCESS 05/30/2011 SALGUERO DO, PHILIPPE K 522.5 PERIAPICAL ALVEOLAR ABSCESS 05/30/2011 SALGUERO DO, PHILIPPE K 522.5 PERIAPICAL ALVEOLAR ABSCESS 05/30/2011 SALGUERO DO PHILIPPE K 522.5 PERIAPICAL ALVEOLAR ABSCESS 05/30/2011 SALGUERO DO, PHILIPPE K 522.5 PERIAPICAL ALVEOLAR ABSCESS 05/30/2011 SALGUERO DO PHILIPPE K 522.5 PERIAPICAL ALVEOLAR ABSCESS 05/30/2011 SALGUERO DO PHILIPPE K 522.5 PERIAPICAL ALVEOLAR ABSCESS 05/30/2011 SALGUERO DO, PHILIPPE K 522.5 PERIAPICAL ALVEOLAR ABSCESS 05/30/2011 WHITE DDS, DEEDEE J 522.5 PERIAPICAL ALVEOLAR ABSCESS 05/30/2011 ORACIO LUNSFORD, MAEVE Pan 522.5 PERIAPICAL ALVEOLAR ABSCESS 05/30/2011 SALGUERO DO, PHILIPPE K 522.5 PERIAPICAL ALVEOLAR ABSCESS 05/30/2011 WHITE DDS, DEEDEE J 522.5 PERIAPICAL ALVEOLAR ABSCESS 05/30/2011 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, BOY J 522.5 PERIAPICAL ALVEOLAR ABSCESS 05/30/2011 SALGUERO DO, PHILIPPE K 522.5 PERIAPICAL ALVEOLAR ABSCESS 05/30/2011 SALGUERO DO, PHILIPPE K 522.5 PERIAPICAL ALVEOLAR ABSCESS 05/30/2011 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, BOY J 522.5 PERIAPICAL ALVEOLAR ABSCESS 05/30/2011 WHITE DDS, DEEDEE J 522.5 PERIAPICAL ALVEOLAR ABSCESS 05/30/2011 WHITE DDS, DEEDEE J 522.5 PERIAPICAL ALVEOLAR ABSCESS 05/30/2011 SALGUERO DO, PHILIPPE K 522.5 PERIAPICAL ALVEOLAR ABSCESS 05/30/2011 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, BOY J 522.5 PERIAPICAL ALVEOLAR ABSCESS 05/30/2011 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, BOY J 522.5 PERIAPICAL ALVEOLAR ABSCESS 05/30/2011 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, BOY J 522.5 PERIAPICAL ALVEOLAR ABSCESS 05/30/2011 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, BOY J 522.5 PERIAPICAL ALVEOLAR ABSCESS 05/30/2011 SALGUERO DO, PHILIPPE K 522.5 PERIAPICAL ALVEOLAR ABSCESS 05/30/2011 SALGUERO DO, PHILIPPE K 522.5 PERIAPICAL ALVEOLAR ABSCESS 05/30/2011 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, BOY J 522.5 PERIAPICAL ALVEOLAR ABSCESS 05/30/2011 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, BOY J 522.5 PERIAPICAL ALVEOLAR ABSCESS 05/30/2011 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, BOY J 522.5 PERIAPICAL ALVEOLAR ABSCESS 05/30/2011 SALGUERO DO, PHILIPPE K 522.5 PERIAPICAL ALVEOLAR ABSCESS 05/30/2011 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, BOY J 522.5 PERIAPICAL ALVEOLAR ABSCESS 05/30/2011 IVET DIANE, JACKIE Eastman 522.5 PERIAPICAL ALVEOLAR ABSCESS 05/30/2011 SALGUERO DOTANISHAA K 522.5 PERIAPICAL ALVEOLAR ABSCESS 05/30/2011 SALGUERO DO, PHILIPPE K 522.5 PERIAPICAL ALVEOLAR ABSCESS 05/30/2011 MOYVeena VASQUES CHRIS A 522.5 PERIAPICAL ALVEOLAR ABSCESS 05/30/2011 SALGUERO DO PHILIPPE K 522.5 PERIAPICAL ALVEOLAR ABSCESS 05/30/2011 BOY LUND APRN Marine 522.5 PERIAPICAL ALVEOLAR ABSCESS 05/30/2011 SALGUERO DO, PHILIPPE K 522.5 PERIAPICAL ALVEOLAR ABSCESS 06/29/2011 278.02 Overweight 06/29/2011 584.9 Acute Renal Failure 06/29/2011 780.8 Excessive Sweating 06/29/2011 786.05 Shortness Of Breath 06/29/2011 V65.42 Patient Education - Alcohol 06/29/2011 MUOGHALU DDS, LOBO N 278.02 Overweight 06/29/2011 MUOGHALU DDS, LOBO N 584.9 Acute Renal Failure 06/29/2011 MUOGHALU DDS, LOBO N 780.8 Excessive Sweating 06/29/2011 MUOGHALU DDS, LOBO N 786.05 Shortness Of Breath 06/29/2011 MUOGHALU DDS, LOBO N V65.42 Patient Education - Alcohol 06/29/2011 278.02 Overweight 06/29/2011 584.9 Acute Renal Failure 06/29/2011 780.8 Excessive Sweating 06/29/2011 786.05 Shortness Of Breath 06/29/2011 V65.42 Patient Education - Alcohol 06/29/2011 SALGUERO DO, PHILIPPE K 278.02 Overweight 06/29/2011 SALGUERO DO PHILIPPE K 584.9 Acute Renal Failure 06/29/2011 SALGUERO DO, PHILIPPE K 780.8 Excessive Sweating 06/29/2011 SALGUERO DO, PHILIPPE K 786.05 Shortness Of Breath 06/29/2011 SALGUERO DO, PHILIPPE K V65.42 Patient Education - Alcohol 06/29/2011 SALGUERO DO, PHILIPPE K 278.02 Overweight 06/29/2011 SALGUERO DO, PHILIPPE K 584.9 Acute Renal Failure 06/29/2011 SALGUERO DO, PHILIPPE K 780.8 Excessive Sweating 06/29/2011 SALGUERO DO, PHILIPPE K 786.05 Shortness Of Breath 06/29/2011 SALGUERO DO, PHILIPPE K V65.42 Patient Education - Alcohol 06/29/2011 SALGUERO DO, PHILIPPE K 278.02 Overweight 06/29/2011 SALGUERO DOTANISHAA K 584.9 Acute Renal Failure 06/29/2011 SALGUERO DOTANISHAA K 780.8 Excessive Sweating 06/29/2011 SALGUERO DOPHILIPPE K 786.05 Shortness Of Breath 06/29/2011 SALGUERO DOPHILIPPE K V65.42 Patient Education - Alcohol 06/29/2011 278.02 Overweight 06/29/2011 584.9 Acute Renal Failure 06/29/2011 780.8 Excessive Sweating 06/29/2011 786.05 Shortness Of Breath 06/29/2011 V65.42 Patient Education - Alcohol 06/29/2011 278.02 Overweight 06/29/2011 584.9 Acute Renal Failure 06/29/2011 780.8 Excessive Sweating 06/29/2011 786.05 Shortness Of Breath 06/29/2011 V65.42 Patient Education - Alcohol 06/29/2011 278.02 Overweight 06/29/2011 584.9 Acute Renal Failure 06/29/2011 780.8 Excessive Sweating 06/29/2011 786.05 Shortness Of Breath 06/29/2011 V65.42 Patient Education - Alcohol 06/29/2011 278.02 Overweight 06/29/2011 584.9 Acute Renal Failure 06/29/2011 780.8 Excessive Sweating 06/29/2011 786.05 Shortness Of Breath 06/29/2011 V65.42 Patient Education - Alcohol 06/29/2011 278.02 Overweight 06/29/2011 584.9 Acute Renal Failure 06/29/2011 780.8 Excessive Sweating 06/29/2011 786.05 Shortness Of Breath 06/29/2011 V65.42 Patient Education - Alcohol 06/29/2011 278.02 Overweight 06/29/2011 584.9 Acute Renal Failure 06/29/2011 780.8 Excessive Sweating 06/29/2011 786.05 Shortness Of Breath 06/29/2011 V65.42 Patient Education - Alcohol 06/29/2011 SALGUERO DOPHILIPPE K 278.02 Overweight 06/29/2011 SALGUERO DOTANISHAA K 584.9 Acute Renal Failure 06/29/2011 SALGUERO DO PHILIPPE K 780.8 Excessive Sweating 06/29/2011 PHILIPPE SALGUERO DO K 786.05 Shortness Of Breath 06/29/2011 TANISHA SALGUERO DOA K V65.42 Patient Education - Alcohol 06/29/2011 278.02 Overweight 06/29/2011 584.9 Acute Renal Failure 06/29/2011 780.8 Excessive Sweating 06/29/2011 786.05 Shortness Of Breath 06/29/2011 V65.42 Patient Education - Alcohol 06/29/2011 278.02 Overweight 06/29/2011 584.9 Acute Renal Failure 06/29/2011 780.8 Excessive Sweating 06/29/2011 786.05 Shortness Of Breath 06/29/2011 V65.42 Patient Education - Alcohol 06/29/2011 SALGUERO DO, PHILIPPE K 278.02 Overweight 06/29/2011 SALGUERO DO, PHILIPPE K 584.9 Acute Renal Failure 06/29/2011 SALGUERO DO, PHILIPPE K 780.8 Excessive Sweating 06/29/2011 SALGUERO DO, PHILIPPE K 786.05 Shortness Of Breath 06/29/2011 SALGUERO DO, PHILIPPE K V65.42 Patient Education - Alcohol 06/29/2011 SALGUERO DO, PHILIPPE K 278.02 Overweight 06/29/2011 SALGUERO DO, PHILIPPE K 584.9 Acute Renal Failure 06/29/2011 SALGUERO DO, PHILIPPE K 780.8 Excessive Sweating 06/29/2011 SALGUERO DO, PHILIPPE K 786.05 Shortness Of Breath 06/29/2011 SALGUERO DO, PHILIPPE K V65.42 Patient Education - Alcohol 06/29/2011 SALGUERO DO, PHILIPPE K 278.02 Overweight 06/29/2011 SALGUERO DO, PHLIIPPE K 584.9 Acute Renal Failure 06/29/2011 SALGUERO DO, PHILIPPE K 780.8 Excessive Sweating 06/29/2011 SALGUERO DO, PHILIPPE K 786.05 Shortness Of Breath 06/29/2011 SALGUERO DO, PHILIPPE K V65.42 Patient Education - Alcohol 06/29/2011 SALGUERO DO, PHILIPPE K 278.02 Overweight 06/29/2011 SALGUERO DO, PHILIPPE K 584.9 Acute Renal Failure 06/29/2011 SALGUERO DO, PHILIPPE K 780.8 Excessive Sweating 06/29/2011 SALGUERO DO, PHILIPPE K 786.05 Shortness Of Breath 06/29/2011 SALGUERO DO, PHILIPPE K V65.42 Patient Education - Alcohol 06/29/2011 SALGUERO DO, PHILIPPE K 278.02 Overweight 06/29/2011 SALGUERO DO, PHILIPPE K 584.9 Acute Renal Failure 06/29/2011 SALGUERO DO, PHILIPPE K 780.8 Excessive Sweating 06/29/2011 SALGUERO DO, PHILIPPE K 786.05 Shortness Of Breath 06/29/2011 SALGUERO DO, PHILIPPE K V65.42 Patient Education - Alcohol 06/29/2011 SALGUERO DO, PHILIPPE K 278.02 Overweight 06/29/2011 SALGUERO DO, PHILIPPE K 584.9 Acute Renal Failure 06/29/2011 SALGUERO DO, PHILIPPE K 780.8 Excessive Sweating 06/29/2011 SALGUERO DO, PHILIPPE K 786.05 Shortness Of Breath 06/29/2011 SALGUERO DO, PHILIPPE K V65.42 Patient Education - Alcohol 06/29/2011 SALGUERO DO, PHILIPPE K 278.02 Overweight 06/29/2011 SALGUERO DO, PHILIPPE K 584.9 Acute Renal Failure 06/29/2011 SALGUERO DO, PHILIPPE K 780.8 Excessive Sweating 06/29/2011 SALGUERO DO, PHILIPPE K 786.05 Shortness Of Breath 06/29/2011 SALGUERO DO, PHILIPPE K V65.42 Patient Education - Alcohol 06/29/2011 SALGUERO DO, PHILIPPE K 278.02 Overweight 06/29/2011 SALGUERO DO, PHILIPPE K 584.9 Acute Renal Failure 06/29/2011 SALGUERO DO, PHILIPPE K 780.8 Excessive Sweating 06/29/2011 SALGUERO DO, PHILIPPE K 786.05 Shortness Of Breath 06/29/2011 SALGUERO DO, PHILIPPE K V65.42 Patient Education - Alcohol 06/29/2011 SALGUERO DO, PHILIPPE K 278.02 Overweight 06/29/2011 SALGUERO DO, PHILIPPE K 584.9 Acute Renal Failure 06/29/2011 SALGUERO DO, PHILIPPE K 780.8 Excessive Sweating 06/29/2011 SALGUERO DO, PHILIPPE K 786.05 Shortness Of Breath 06/29/2011 SALGUERO DO, PHILIPPE K V65.42 Patient Education - Alcohol 06/29/2011 WHITE DDS, DEEDEE J 278.02 Overweight 06/29/2011 WHITE DDS, DEEDEE J 584.9 Acute Renal Failure 06/29/2011 WHITE DDS, DEEDEE J 780.8 Excessive Sweating 06/29/2011 WHITE DDS, DEEDEE J 786.05 Shortness Of Breath 06/29/2011 WHITE DDS, DEEDEE J V65.42 Patient Education - Alcohol 06/29/2011 MAEVE NARAYANAN PA-C 278.02 Overweight 06/29/2011 MAEVE NARAYANAN PA-C M 584.9 Acute Renal Failure 06/29/2011 MAEVE NARAYANAN PA-C 780.8 Excessive Sweating 06/29/2011 MAEVE NARAYANAN PA-C 786.05 Shortness Of Breath 06/29/2011 MAEVE NARAYANAN PA-C V65.42 Patient Education - Alcohol 06/29/2011 SALGUERO DO PHILIPPE K 278.02 Overweight 06/29/2011 SALGUERO DO PHILIPPE K 584.9 Acute Renal Failure 06/29/2011 SALGUERO DO, PHILIPPE K 780.8 Excessive Sweating 06/29/2011 SALGUERO DO, PHILIPPE K 786.05 Shortness Of Breath 06/29/2011 SALGUERO DO, PHILIPPE K V65.42 Patient Education - Alcohol 06/29/2011 WHITE DDS, DEEDEE J 278.02 Overweight 06/29/2011 WHITE DDS, DEEDEE J 584.9 Acute Renal Failure 06/29/2011 WHITE DDS, DEEDEE J 780.8 Excessive Sweating 06/29/2011 WHITE DDS, DEDEEE J 786.05 Shortness Of Breath 06/29/2011 WHITE DDS, DEEDEE J V65.42 Patient Education - Alcohol 06/29/2011 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, BOY J 278.02 Overweight 06/29/2011 ASHELY SPANGLERNBECKYBOY J 584.9 Acute Renal Failure 06/29/2011 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, BOY J 780.8 Excessive Sweating 06/29/2011 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BECKYBOY J 786.05 Shortness Of Breath 06/29/2011 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 BOY J V65.42 Patient Education - Alcohol 06/29/2011 SALGUERO DO, PHILIPPE K 278.02 Overweight 06/29/2011 SALGUERO DO, PHILIPPE K 584.9 Acute Renal Failure 06/29/2011 SALGUERO DO, PHILIPPE K 780.8 Excessive Sweating 06/29/2011 SALGUERO DO, PHILIPPE K 786.05 Shortness Of Breath 06/29/2011 SALGUERO DO, PHILIPPE K V65.42 Patient Education - Alcohol 06/29/2011 SALGUERO DO, PHILIPPE K 278.02 Overweight 06/29/2011 SALGUERO DO PHILIPPE K 584.9 Acute Renal Failure 06/29/2011 SALGUERO DO, PHILIPPE K 780.8 Excessive Sweating 06/29/2011 SALGUERO DO, PHILIPPE K 786.05 Shortness Of Breath 06/29/2011 SALGUERO DO, PHILIPPE K V65.42 Patient Education - Alcohol 06/29/2011 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, BOY J 278.02 Overweight 06/29/2011 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, BOY J 584.9 Acute Renal Failure 06/29/2011 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, BOY J 780.8 Excessive Sweating 06/29/2011 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JUAREZA J 786.05 Shortness Of Breath 06/29/2011 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, BOY J V65.42 Patient Education - Alcohol 06/29/2011 WHITE DDS, DEEDEE J 278.02 Overweight 06/29/2011 WHITE DDS, DEEDEE J 584.9 Acute Renal Failure 06/29/2011 WHITE DDS, DEEDEE J 780.8 Excessive Sweating 06/29/2011 WHITE DDS, DEEDEE J 786.05 Shortness Of Breath 06/29/2011 WHITE DDS, DEEDEE J V65.42 Patient Education - Alcohol 06/29/2011 WHITE DDS, DEEDEE J 278.02 Overweight 06/29/2011 WHITE DDS, DEEDEE J 584.9 Acute Renal Failure 06/29/2011 WHITE DDS, DEEDEE J 780.8 Excessive Sweating 06/29/2011 WHITE DDS, DEEDEE J 786.05 Shortness Of Breath 06/29/2011 WHITE DDS, DEEDEE J V65.42 Patient Education - Alcohol 06/29/2011 SALGUERO DO, PHILIPPE K 278.02 Overweight 06/29/2011 SALGUERO DO PHILIPPE K 584.9 Acute Renal Failure 06/29/2011 SALGUERO DO, PHILIPPE K 780.8 Excessive Sweating 06/29/2011 SALGUERO DO, PHILIPPE K 786.05 Shortness Of Breath 06/29/2011 SALGUERO DO, PHILIPPE K V65.42 Patient Education - Alcohol 06/29/2011 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 BOY J 278.02 Overweight 06/29/2011 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BECKYBOY J 584.9 Acute Renal Failure 06/29/2011 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BECKYBOY J 780.8 Excessive Sweating 06/29/2011 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JUAREZA J 786.05 Shortness Of Breath 06/29/2011 ASHELY BOY VASQUES V65.42 Patient Education - Alcohol 06/29/2011 BOY LUND APRN 278.02 Overweight 06/29/2011 BOY LUND APRN 584.9 Acute Renal Failure 06/29/2011 BOY LUND APRN 780.8 Excessive Sweating 06/29/2011 BOY LUND APRN 786.05 Shortness Of Breath 06/29/2011 BOY LUND APRN V65.42 Patient Education - Alcohol 06/29/2011 BOY LUND APRN 278.02 Overweight 06/29/2011 BOY LUND APRN 584.9 Acute Renal Failure 06/29/2011 BOY LUND APRN 780.8 Excessive Sweating 06/29/2011 BOY LUND APRN 786.05 Shortness Of Breath 06/29/2011 BOY LUND APRN V65.42 Patient Education - Alcohol 06/29/2011 BOY LUND APRN 278.02 Overweight 06/29/2011 BOY LUND APRN 584.9 Acute Renal Failure 06/29/2011 BOY LUND APRN 780.8 Excessive Sweating 06/29/2011 BOY LUND APRN 786.05 Shortness Of Breath 06/29/2011 BOY LUND APRN V65.42 Patient Education - Alcohol 06/29/2011 SALGUERO DO, PHILIPPE K 278.02 Overweight 06/29/2011 SALGUERO DO, PHILIPPE K 584.9 Acute Renal Failure 06/29/2011 SALGUERO DO, PHILIPPE K 780.8 Excessive Sweating 06/29/2011 SALGUERO DO, PHILIPPE K 786.05 Shortness Of Breath 06/29/2011 SALGUERO DO, PHILIPPE K V65.42 Patient Education - Alcohol 06/29/2011 SALGUERO DO, PHILIPPE K 278.02 Overweight 06/29/2011 SALGUERO DO, PHILIPPE K 584.9 Acute Renal Failure 06/29/2011 SALGUERO DO, PHILIPPE K 780.8 Excessive Sweating 06/29/2011 SALGUERO DO, PHILIPPE K 786.05 Shortness Of Breath 06/29/2011 SALGUERO DO, PHILIPPE K V65.42 Patient Education - Alcohol 06/29/2011 BOY LUND APRN 278.02 Overweight 06/29/2011 BOY LUND APRN 584.9 Acute Renal Failure 06/29/2011 BOY LUND APRN 780.8 Excessive Sweating 06/29/2011 BOY LUND APRN 786.05 Shortness Of Breath 06/29/2011 BOY LUND APRN V65.42 Patient Education - Alcohol 06/29/2011 BOY LUND APRN 278.02 Overweight 06/29/2011 BOY LUND APRN 584.9 Acute Renal Failure 06/29/2011 BOY LUND APRN 780.8 Excessive Sweating 06/29/2011 BOY LUND APRN 786.05 Shortness Of Breath 06/29/2011 BOY LUND APRN V65.42 Patient Education - Alcohol 06/29/2011 BOY LUND APRN 278.02 Overweight 06/29/2011 BOY LUND APRN 584.9 Acute Renal Failure 06/29/2011 BOY LUND APRN 780.8 Excessive Sweating 06/29/2011 BOY LUND APRN 786.05 Shortness Of Breath 06/29/2011 BOY LUND APRN V65.42 Patient Education - Alcohol 06/29/2011 SALGUERO TANISHA OLVERAA K 278.02 Overweight 06/29/2011 TANISHA SALGUERO DOA K 584.9 Acute Renal Failure 06/29/2011 TANISHA SALGUERO DOA K 780.8 Excessive Sweating 06/29/2011 TANISHA SALGUERO DOA K 786.05 Shortness Of Breath 06/29/2011 TANISHA SALGUERO DOA K V65.42 Patient Education - Alcohol 06/29/2011 BOY LUND APRN 278.02 Overweight 06/29/2011 BOY LUND APRN 584.9 Acute Renal Failure 06/29/2011 BOY LUND APRN 780.8 Excessive Sweating 06/29/2011 BOY LUND APRN 786.05 Shortness Of Breath 06/29/2011 BOY LUND APRN V65.42 Patient Education - Alcohol 06/29/2011 [facility], JACKIE R 278.02 Overweight 06/29/2011 [facility], JACKIE Eastman 584.9 Acute Renal Failure 06/29/2011 [facility], JACKIE R 780.8 Excessive Sweating 06/29/2011 [facility], JACKIE R 786.05 Shortness Of Breath 06/29/2011 [facility], JACKIE R V65.42 Patient Education - Alcohol 06/29/2011 SALGUERO DO, PHILIPPE K 278.02 Overweight 06/29/2011 SALGUERO DO, PHILIPPE K 584.9 Acute Renal Failure 06/29/2011 SALGUERO DO, PHILIPPE K 780.8 Excessive Sweating 06/29/2011 SALGUERO DO, PHILIPPE K 786.05 Shortness Of Breath 06/29/2011 SALGUERO DO, PHILIPPE K V65.42 Patient Education - Alcohol 06/29/2011 SALGUERO DO, PHILIPPE K 278.02 Overweight 06/29/2011 SALGUERO DO, PHILIPPE K 584.9 Acute Renal Failure 06/29/2011 SALGUERO DO, PHILIPPE K 780.8 Excessive Sweating 06/29/2011 SALGUERO DO, PHILIPPE K 786.05 Shortness Of Breath 06/29/2011 SALGUERO DO, PHILIPPE K V65.42 Patient Education - Alcohol 06/29/2011 MOY VASQUES CHRIS A 278.02 Overweight 06/29/2011 MOY VASQUES CHRIS A 584.9 Acute Renal Failure 06/29/2011 MOYVeena VASQUES CHRIS A 780.8 Excessive Sweating 06/29/2011 MOY VASQUES CHRIS A 786.05 Shortness Of Breath 06/29/2011 MOY VASQUES CHRIS A V65.42 Patient Education - Alcohol 06/29/2011 SALGUERO DO, PHILIPPE K 278.02 Overweight 06/29/2011 SALGUERO DO, PHILIPPE K 584.9 Acute Renal Failure 06/29/2011 SALGUERO DO, PHILIPPE K 780.8 Excessive Sweating 06/29/2011 SALGUERO DO, PHILIPPE K 786.05 Shortness Of Breath 06/29/2011 SALGUERO DO, PHILIPPE K V65.42 Patient Education - Alcohol 06/29/2011 BOY LUND APRN 278.02 Overweight 06/29/2011 BOY LUND APRN 584.9 Acute Renal Failure 06/29/2011 BOY LUND APRN J 780.8 Excessive Sweating 06/29/2011 BOY LUND APRN 786.05 Shortness Of Breath 06/29/2011 BOY LUND APRN J V65.42 Patient Education - Alcohol 06/29/2011 SALGUERO DO, PHILIPPE K 278.02 Overweight 06/29/2011 SALGUERO DO, PHILIPPE K 584.9 Acute Renal Failure 06/29/2011 SALGUERO DO, PHILIPPE K 780.8 Excessive Sweating 06/29/2011 SALGUERO DO, PHILIPPE K 786.05 Shortness Of Breath 06/29/2011 SALGUERO DO, PHILIPPE K V65.42 Patient Education - Alcohol 07/31/2011 564.00 UNSPECIFIED CONSTIPATION 07/31/2011 MIRI JACOBSON, LOBO Curiel 564.00 UNSPECIFIED CONSTIPATION 07/31/2011 564.00 UNSPECIFIED CONSTIPATION 07/31/2011 SALGUERO DO, PHILIPPE K 564.00 UNSPECIFIED CONSTIPATION 07/31/2011 SALGUERO DO, PHILIPPE K 564.00 UNSPECIFIED CONSTIPATION 07/31/2011 SALGUERO DO, PHILIPPE K 564.00 UNSPECIFIED CONSTIPATION 07/31/2011 564.00 UNSPECIFIED CONSTIPATION 07/31/2011 564.00 UNSPECIFIED CONSTIPATION 07/31/2011 564.00 UNSPECIFIED CONSTIPATION 07/31/2011 564.00 UNSPECIFIED CONSTIPATION 07/31/2011 564.00 UNSPECIFIED CONSTIPATION 07/31/2011 564.00 UNSPECIFIED CONSTIPATION 07/31/2011 SALGUERO DO, PHILIPPE K 564.00 UNSPECIFIED CONSTIPATION 07/31/2011 564.00 UNSPECIFIED CONSTIPATION 07/31/2011 564.00 UNSPECIFIED CONSTIPATION 07/31/2011 SALGUERO DO, PHILIPPE K 564.00 UNSPECIFIED CONSTIPATION 07/31/2011 SALGUERO DO, PHILIPPE K 564.00 UNSPECIFIED CONSTIPATION 07/31/2011 SALGUERO DO, PHILIPPE K 564.00 UNSPECIFIED CONSTIPATION 07/31/2011 SALGUERO DO, PHILIPPE K 564.00 UNSPECIFIED CONSTIPATION 07/31/2011 SALGUERO DO, PHILIPPE K 564.00 UNSPECIFIED CONSTIPATION 07/31/2011 SALGUERO DO, PHILIPPE K 564.00 UNSPECIFIED CONSTIPATION 07/31/2011 SALGUERO DO, PHILIPPE K 564.00 UNSPECIFIED CONSTIPATION 07/31/2011 SALGUERO DO, PHILIPPE K 564.00 UNSPECIFIED CONSTIPATION 07/31/2011 SALGUERO DO, PHILIPPE K 564.00 UNSPECIFIED CONSTIPATION 07/31/2011 HAN DEL VALLES, DEEDEE Hawthorne 564.00 UNSPECIFIED CONSTIPATION 07/31/2011 NARAYANAN PA-C, MAEVE M 564.00 UNSPECIFIED CONSTIPATION 07/31/2011 SALGUERO DO, PHILIPPE K 564.00 UNSPECIFIED CONSTIPATION 07/31/2011 WHITE DDS, DEEDEE J 564.00 UNSPECIFIED CONSTIPATION 07/31/2011 ASHELY SPANGLERN, BOY J 564.00 UNSPECIFIED CONSTIPATION 07/31/2011 SALGUERO DO, PHILIPPE K 564.00 UNSPECIFIED CONSTIPATION 07/31/2011 SALGUERO DO, PHILIPPE K 564.00 UNSPECIFIED CONSTIPATION 07/31/2011 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, BOY J 564.00 UNSPECIFIED CONSTIPATION 07/31/2011 WHITE DDS, DEEDEE J 564.00 UNSPECIFIED CONSTIPATION 07/31/2011 WHITE DDS, DEEDEE J 564.00 UNSPECIFIED CONSTIPATION 07/31/2011 SALGUERO DO, PHILIPPE K 564.00 UNSPECIFIED CONSTIPATION 07/31/2011 ASHELY VASQUES, BOY J 564.00 UNSPECIFIED CONSTIPATION 07/31/2011 ASHELY VASQUES, BOY J 564.00 UNSPECIFIED CONSTIPATION 07/31/2011 ASHELY VASQUES, BOY J 564.00 UNSPECIFIED CONSTIPATION 07/31/2011 ASHELY VASQUES, BOY J 564.00 UNSPECIFIED CONSTIPATION 07/31/2011 SALGUERO DO, PHILIPPE K 564.00 UNSPECIFIED CONSTIPATION 07/31/2011 SALGUERO DO, PHILIPPE K 564.00 UNSPECIFIED CONSTIPATION 07/31/2011 ASHELY VASQUES, BOY J 564.00 UNSPECIFIED CONSTIPATION 07/31/2011 ASHELY VASQUES, BOY J 564.00 UNSPECIFIED CONSTIPATION 07/31/2011 ASHELY VASQUES, BOY J 564.00 UNSPECIFIED CONSTIPATION 07/31/2011 SALGUERO DO, PHILIPPE K 564.00 UNSPECIFIED CONSTIPATION 07/31/2011 ASHELY SPANGLERN, BOY J 564.00 UNSPECIFIED CONSTIPATION 07/31/2011 [facility], JACKIE R 564.00 UNSPECIFIED CONSTIPATION 07/31/2011 SALGUERO DO, PHILIPPE K 564.00 UNSPECIFIED CONSTIPATION 07/31/2011 SALGUERO DO, PHILIPPE K 564.00 UNSPECIFIED CONSTIPATION 07/31/2011 CHRIS WINTER APRN 564.00 UNSPECIFIED CONSTIPATION 07/31/2011 SALGUERO DO, PHILIPPE K 564.00 UNSPECIFIED CONSTIPATION 07/31/2011 ASHELY VASQUES, BOY J 564.00 UNSPECIFIED CONSTIPATION 07/31/2011 PHILIPPE SALGUERO DO K 564.00 UNSPECIFIED CONSTIPATION 08/20/2011 616.10 Vaginitis And Vulvovaginitis Unspecified 08/20/2011 724.2 LUMBAGO 08/20/2011 783.1 ABNORMAL WEIGHT GAIN 08/20/2011 MUOGHALU DDS, LOBO N 616.10 Vaginitis And Vulvovaginitis Unspecified 08/20/2011 MUOGHALU DDS, LOBO N 724.2 LUMBAGO 08/20/2011 MUOGHALU DDS, LOBO N 783.1 ABNORMAL WEIGHT GAIN 08/20/2011 616.10 Vaginitis And Vulvovaginitis Unspecified 08/20/2011 724.2 LUMBAGO 08/20/2011 783.1 ABNORMAL WEIGHT GAIN 08/20/2011 SALGUERO DO, PHILIPPE K 616.10 Vaginitis And Vulvovaginitis Unspecified 08/20/2011 SALGUERO , PHILIPPE K 724.2 LUMBAGO 08/20/2011 SALGUERO , PHILIPPE K 783.1 ABNORMAL WEIGHT GAIN 08/20/2011 SALGUERO , PHILIPPE K 616.10 Vaginitis And Vulvovaginitis Unspecified 08/20/2011 SALGUERO , PHILIPPE K 724.2 LUMBAGO 08/20/2011 SALGUERO TANISHA OLVERAA K 783.1 ABNORMAL WEIGHT GAIN 08/20/2011 SALGUERO TANISHA OLVERAA K 616.10 Vaginitis And Vulvovaginitis Unspecified 08/20/2011 SALGUERO TANISHA OLVERAA K 724.2 LUMBAGO 08/20/2011 SALGUERO PHILIPPE OLVERA K 783.1 ABNORMAL WEIGHT GAIN 08/20/2011 616.10 Vaginitis And Vulvovaginitis Unspecified 08/20/2011 724.2 LUMBAGO 08/20/2011 783.1 ABNORMAL WEIGHT GAIN 08/20/2011 616.10 Vaginitis And Vulvovaginitis Unspecified 08/20/2011 724.2 LUMBAGO 08/20/2011 783.1 ABNORMAL WEIGHT GAIN 08/20/2011 616.10 Vaginitis And Vulvovaginitis Unspecified 08/20/2011 724.2 LUMBAGO 08/20/2011 783.1 ABNORMAL WEIGHT GAIN 08/20/2011 616.10 Vaginitis And Vulvovaginitis Unspecified 08/20/2011 724.2 LUMBAGO 08/20/2011 783.1 ABNORMAL WEIGHT GAIN 08/20/2011 616.10 Vaginitis And Vulvovaginitis Unspecified 08/20/2011 724.2 LUMBAGO 08/20/2011 783.1 ABNORMAL WEIGHT GAIN 08/20/2011 616.10 Vaginitis And Vulvovaginitis Unspecified 08/20/2011 724.2 LUMBAGO 08/20/2011 783.1 ABNORMAL WEIGHT GAIN 08/20/2011 SALGUERO DO, PHILIPPE K 616.10 Vaginitis And Vulvovaginitis Unspecified 08/20/2011 SALGUERO DO, PHILIPPE K 724.2 LUMBAGO 08/20/2011 SALGUERO DO, PHILIPPE K 783.1 ABNORMAL WEIGHT GAIN 08/20/2011 616.10 Vaginitis And Vulvovaginitis Unspecified 08/20/2011 724.2 LUMBAGO 08/20/2011 783.1 ABNORMAL WEIGHT GAIN 08/20/2011 616.10 Vaginitis And Vulvovaginitis Unspecified 08/20/2011 724.2 LUMBAGO 08/20/2011 783.1 ABNORMAL WEIGHT GAIN 08/20/2011 SALGUERO DO, PHILIPPE K 616.10 Vaginitis And Vulvovaginitis Unspecified 08/20/2011 SALGUERO DO, PHILIPPE K 724.2 LUMBAGO 08/20/2011 SALGUERO DO, PHILIPPE K 783.1 ABNORMAL WEIGHT GAIN 08/20/2011 SALGUERO DO, PHILIPPE K 616.10 Vaginitis And Vulvovaginitis Unspecified 08/20/2011 SALGUERO DO, PHILIPPE K 724.2 LUMBAGO 08/20/2011 SALGUERO DO, PHILIPPE K 783.1 ABNORMAL WEIGHT GAIN 08/20/2011 SALGUERO DO, PHILIPPE K 616.10 Vaginitis And Vulvovaginitis Unspecified 08/20/2011 SALGUERO DO, PHILIPPE K 724.2 LUMBAGO 08/20/2011 SALGUERO DO, PHILIPPE K 783.1 ABNORMAL WEIGHT GAIN 08/20/2011 SALGUERO DO, PHILIPPE K 616.10 Vaginitis And Vulvovaginitis Unspecified 08/20/2011 SALGUERO DO, PHILIPPE K 724.2 LUMBAGO 08/20/2011 SALGUERO DO, PHILIPPE K 783.1 ABNORMAL WEIGHT GAIN 08/20/2011 SALGUERO DO, PHILIPPE K 616.10 Vaginitis And Vulvovaginitis Unspecified 08/20/2011 SALGUERO DO, PHILIPPE K 724.2 LUMBAGO 08/20/2011 SALGUERO DO, PHILIPPE K 783.1 ABNORMAL WEIGHT GAIN 08/20/2011 SALGUERO DO, PHILIPPE K 616.10 Vaginitis And Vulvovaginitis Unspecified 08/20/2011 SALGUERO DO, PHILIPPE K 724.2 LUMBAGO 08/20/2011 SALGUERO DO, PHILIPPE K 783.1 ABNORMAL WEIGHT GAIN 08/20/2011 SALGUERO DO, PHILIPPE K 616.10 Vaginitis And Vulvovaginitis Unspecified 08/20/2011 SALGUERO DO, PHILIPPE K 724.2 LUMBAGO 08/20/2011 SALGUERO DO, PHILIPPE K 783.1 ABNORMAL WEIGHT GAIN 08/20/2011 SALGUERO DO, PHILIPPE K 616.10 Vaginitis And Vulvovaginitis Unspecified 08/20/2011 SALGUERO DO, PHILIPPE K 724.2 LUMBAGO 08/20/2011 SALGUERO DO, PHILIPPE K 783.1 ABNORMAL WEIGHT GAIN 08/20/2011 SALGUERO DO, PHILIPPE K 616.10 Vaginitis And Vulvovaginitis Unspecified 08/20/2011 SALGUERO DO, PHILIPPE K 724.2 LUMBAGO 08/20/2011 SALGUERO DO, PHILIPPE K 783.1 ABNORMAL WEIGHT GAIN 08/20/2011 WHITE DDSDEEDEE J 616.10 Vaginitis And Vulvovaginitis Unspecified 08/20/2011 WHITE DDSDEEDEE J 724.2 LUMBAGO 08/20/2011 WHITE DDS, DEEDEE J 783.1 ABNORMAL WEIGHT GAIN 08/20/2011 MAEVE NARAYANAN PA-C 616.10 Vaginitis And Vulvovaginitis Unspecified 08/20/2011 MAEVE NARAYANAN PA-C 724.2 LUMBAGO 08/20/2011 MAEVE NARAYANAN PA-C 783.1 ABNORMAL WEIGHT GAIN 08/20/2011 SALGUERO DO, PHILIPPE K 616.10 Vaginitis And Vulvovaginitis Unspecified 08/20/2011 SALGUERO DO, PHILIPPE K 724.2 LUMBAGO 08/20/2011 NOEMY OLVERA, PHILIPPE K 783.1 ABNORMAL WEIGHT GAIN 08/20/2011 WHITE DDSDEEDEE J 616.10 Vaginitis And Vulvovaginitis Unspecified 08/20/2011 WHITE DDS, DEEDEE J 724.2 LUMBAGO 08/20/2011 WHITE DDS, DEEDEE J 783.1 ABNORMAL WEIGHT GAIN 08/20/2011 ASHELY SPANGLERNJUAREZA J 616.10 Vaginitis And Vulvovaginitis Unspecified 08/20/2011 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, BOY J 724.2 LUMBAGO 08/20/2011 ASHELY SPANGLERN BOY J 783.1 ABNORMAL WEIGHT GAIN 08/20/2011 NOEMY OLVERA, PHILIPPE K 616.10 Vaginitis And Vulvovaginitis Unspecified 08/20/2011 SALGUERO , PHILIPPE K 724.2 LUMBAGO 08/20/2011 NOEMY OLVERA PHILIPPE K 783.1 ABNORMAL WEIGHT GAIN 08/20/2011 SALGUERO , PHILIPPE K 616.10 Vaginitis And Vulvovaginitis Unspecified 08/20/2011 SALGUERO , PHILIPPE K 724.2 LUMBAGO 08/20/2011 NOEMY OLVERA, PHILIPPE K 783.1 ABNORMAL WEIGHT GAIN 08/20/2011 ASHELY SPANGLERN, BOY J 616.10 Vaginitis And Vulvovaginitis Unspecified 08/20/2011 ASHELY VASQUES BOY J 724.2 LUMBAGO 08/20/2011 ASHELY VASQUES BOY J 783.1 ABNORMAL WEIGHT GAIN 08/20/2011 WHITE DDS, DEEDEE J 616.10 Vaginitis And Vulvovaginitis Unspecified 08/20/2011 WHITE DDS, DEEDEE J 724.2 LUMBAGO 08/20/2011 WHITE DDSDEEDEE J 783.1 ABNORMAL WEIGHT GAIN 08/20/2011 WHITE DDSDEEDEE J 616.10 Vaginitis And Vulvovaginitis Unspecified 08/20/2011 WHITE DDS, DEEDEE J 724.2 LUMBAGO 08/20/2011 WHITE DDSSARABJITON J 783.1 ABNORMAL WEIGHT GAIN 08/20/2011 SALGUERO DO, PHILIPPE K 616.10 Vaginitis And Vulvovaginitis Unspecified 08/20/2011 SALGUERO DO, PHILIPPE K 724.2 LUMBAGO 08/20/2011 NOEMY OLVERA, PHILIPPE K 783.1 ABNORMAL WEIGHT GAIN 08/20/2011 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, BOY J 616.10 Vaginitis And Vulvovaginitis Unspecified 08/20/2011 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, BOY J 724.2 LUMBAGO 08/20/2011 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, BOY J 783.1 ABNORMAL WEIGHT GAIN 08/20/2011 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, BOY J 616.10 Vaginitis And Vulvovaginitis Unspecified 08/20/2011 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, BOY J 724.2 LUMBAGO 08/20/2011 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, BOY J 783.1 ABNORMAL WEIGHT GAIN 08/20/2011 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, BOY J 616.10 Vaginitis And Vulvovaginitis Unspecified 08/20/2011 ASHELY VASQUES, BOY J 724.2 LUMBAGO 08/20/2011 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, BOY J 783.1 ABNORMAL WEIGHT GAIN 08/20/2011 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, BOY J 616.10 Vaginitis And Vulvovaginitis Unspecified 08/20/2011 ASHELY VASQUES, BOY J 724.2 LUMBAGO 08/20/2011 ASHELY VASQUES, BOY J 783.1 ABNORMAL WEIGHT GAIN 08/20/2011 NOEMY OLVERA PHILIPPE K 616.10 Vaginitis And Vulvovaginitis Unspecified 08/20/2011 NOEMY OLVERA PHILIPPE K 724.2 LUMBAGO 08/20/2011 NOEMY OLVERA PHILIPPE K 783.1 ABNORMAL WEIGHT GAIN 08/20/2011 NOEMY OLVERA, PHILIPPE K 616.10 Vaginitis And Vulvovaginitis Unspecified 08/20/2011 NOEMY OLVERA, PHILIPPE K 724.2 LUMBAGO 08/20/2011 NOEMY OLVERA, PHILIPPE K 783.1 ABNORMAL WEIGHT GAIN 08/20/2011 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, BOY J 616.10 Vaginitis And Vulvovaginitis Unspecified 08/20/2011 ASHELY VASQUES BOY J 724.2 LUMBAGO 08/20/2011 BECKY LUND APRNINDA J 783.1 ABNORMAL WEIGHT GAIN 08/20/2011 BECKY LUND APRNINDA J 616.10 Vaginitis And Vulvovaginitis Unspecified 08/20/2011 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, BOY J 724.2 LUMBAGO 08/20/2011 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, BOY J 783.1 ABNORMAL WEIGHT GAIN 08/20/2011 BECKY LUND APRNINDA J 616.10 Vaginitis And Vulvovaginitis Unspecified 08/20/2011 ASHELY VASQUES, BOY J 724.2 LUMBAGO 08/20/2011 ASHELY VASQUES, BOY J 783.1 ABNORMAL WEIGHT GAIN 08/20/2011 SALGUERO DO, PHILIPPE K 616.10 Vaginitis And Vulvovaginitis Unspecified 08/20/2011 SALGUERO DO, PHILIPPE K 724.2 LUMBAGO 08/20/2011 SALGUERO DO, PHILIPPE K 783.1 ABNORMAL WEIGHT GAIN 08/20/2011 JUAREZ LUND APRNA J 616.10 Vaginitis And Vulvovaginitis Unspecified 08/20/2011 BECKY LUND APRNINDA J 724.2 LUMBAGO 08/20/2011 ASHELY VASQUES BOY J 783.1 ABNORMAL WEIGHT GAIN 08/20/2011 [facility], JACKIE R 616.10 Vaginitis And Vulvovaginitis Unspecified 08/20/2011 [facility], JACKIE R 724.2 LUMBAGO 08/20/2011 [facility], JACKIE R 783.1 ABNORMAL WEIGHT GAIN 08/20/2011 SALGUERO DO, PHILIPPE K 616.10 Vaginitis And Vulvovaginitis Unspecified 08/20/2011 SALGUERO DO, PHILIPPE K 724.2 LUMBAGO 08/20/2011 SALGUERO DO, PHILIPPE K 783.1 ABNORMAL WEIGHT GAIN 08/20/2011 SALGUERO DO, PHILIPPE K 616.10 Vaginitis And Vulvovaginitis Unspecified 08/20/2011 SALGUERO DO, PHILIPPE K 724.2 LUMBAGO 08/20/2011 SALGUERO DO, PHILIPPE K 783.1 ABNORMAL WEIGHT GAIN 08/20/2011 CHRIS WINTER APRN 616.10 Vaginitis And Vulvovaginitis Unspecified 08/20/2011 MOY GROCERY DELIVERER, CHRIS A 724.2 LUMBAGO 08/20/2011 MOY SPANGLERN, CHRIS A 783.1 ABNORMAL WEIGHT GAIN 08/20/2011 TANISHA SALGUERO DOA K 616.10 Vaginitis And Vulvovaginitis Unspecified 08/20/2011 SALGUERO DO PHILIPPE K 724.2 LUMBAGO 08/20/2011 TANISHA SALGUERO DOA K 783.1 ABNORMAL WEIGHT GAIN 08/20/2011 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, BOY J 616.10 Vaginitis And Vulvovaginitis Unspecified 08/20/2011 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, BOY J 724.2 LUMBAGO 08/20/2011 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, BOY J 783.1 ABNORMAL WEIGHT GAIN 08/20/2011 NOEMY OLVERA PHILIPPE K 616.10 Vaginitis And Vulvovaginitis Unspecified 08/20/2011 TANISHA SALGUERO DOA K 724.2 LUMBAGO 08/20/2011 TANISHA SALGUERO DOA K 783.1 ABNORMAL WEIGHT GAIN 10/09/2011 719.45 Pain In Joint Involving Pelvic Region And Thigh 10/09/2011 729.5 Pain In Limb 10/09/2011 782.3 EDEMA 10/09/2011 782.62 Flushing 10/09/2011 MUOGHALU DDS, LOBO N 719.45 Pain In Joint Involving Pelvic Region And Thigh 10/09/2011 MUOGHALU DDS, LOBO N 729.5 Pain In Limb 10/09/2011 MUOGHALU DDS, LOBO N 782.3 EDEMA 10/09/2011 MUOGHALU DDS, LOBO N 782.62 Flushing 10/09/2011 719.45 Pain In Joint Involving Pelvic Region And Thigh 10/09/2011 729.5 Pain In Limb 10/09/2011 782.3 EDEMA 10/09/2011 782.62 Flushing 10/09/2011 TANISHA SALGUERO DOA K 719.45 Pain In Joint Involving Pelvic Region And Thigh 10/09/2011 NOEMY OLVERA PHILIPPE K 729.5 Pain In Limb 10/09/2011 TANISHA SALGUERO DOA K 782.3 EDEMA 10/09/2011 SALGUERO DO, PHILIPPE K 782.62 Flushing 10/09/2011 SALGUERO DO, PHILIPPE K 719.45 Pain In Joint Involving Pelvic Region And Thigh 10/09/2011 SALGUERO DO, PHILIPPE K 729.5 Pain In Limb 10/09/2011 SALGUERO DO, PHILIPPE K 782.3 EDEMA 10/09/2011 SALGUERO DO, PHILIPPE K 782.62 Flushing 10/09/2011 SALGUERO DO, PHILIPPE K 719.45 Pain In Joint Involving Pelvic Region And Thigh 10/09/2011 SALGUERO DO, PHILIPPE K 729.5 Pain In Limb 10/09/2011 SALGUERO DO, PHILIPPE K 782.3 EDEMA 10/09/2011 SALGUERO DO, PHILIPPE K 782.62 Flushing 10/09/2011 719.45 Pain In Joint Involving Pelvic Region And Thigh 10/09/2011 729.5 Pain In Limb 10/09/2011 782.3 EDEMA 10/09/2011 782.62 Flushing 10/09/2011 719.45 Pain In Joint Involving Pelvic Region And Thigh 10/09/2011 729.5 Pain In Limb 10/09/2011 782.3 EDEMA 10/09/2011 782.62 Flushing 10/09/2011 719.45 Pain In Joint Involving Pelvic Region And Thigh 10/09/2011 729.5 Pain In Limb 10/09/2011 782.3 EDEMA 10/09/2011 782.62 Flushing 10/09/2011 719.45 Pain In Joint Involving Pelvic Region And Thigh 10/09/2011 729.5 Pain In Limb 10/09/2011 782.3 EDEMA 10/09/2011 782.62 Flushing 10/09/2011 719.45 Pain In Joint Involving Pelvic Region And Thigh 10/09/2011 729.5 Pain In Limb 10/09/2011 782.3 EDEMA 10/09/2011 782.62 Flushing 10/09/2011 719.45 Pain In Joint Involving Pelvic Region And Thigh 10/09/2011 729.5 Pain In Limb 10/09/2011 782.3 EDEMA 10/09/2011 782.62 Flushing 10/09/2011 SALGUERO DO PHILIPPE K 719.45 Pain In Joint Involving Pelvic Region And Thigh 10/09/2011 SALGUERO DO PHILIPPE K 729.5 Pain In Limb 10/09/2011 SALGUERO DO, PHILIPPE K 782.3 EDEMA 10/09/2011 SALGUERO DO, PHILIPPE K 782.62 Flushing 10/09/2011 719.45 Pain In Joint Involving Pelvic Region And Thigh 10/09/2011 729.5 Pain In Limb 10/09/2011 782.3 EDEMA 10/09/2011 782.62 Flushing 10/09/2011 719.45 Pain In Joint Involving Pelvic Region And Thigh 10/09/2011 729.5 Pain In Limb 10/09/2011 782.3 EDEMA 10/09/2011 782.62 Flushing 10/09/2011 SALGUERO DO, PHILIPPE K 719.45 Pain In Joint Involving Pelvic Region And Thigh 10/09/2011 SALGUERO DO, PHILIPPE K 729.5 Pain In Limb 10/09/2011 SALGUERO DO, PHILIPPE K 782.3 EDEMA 10/09/2011 SALGUERO DO, PHILIPPE K 782.62 Flushing 10/09/2011 SALGUERO DO, PHILIPPE K 719.45 Pain In Joint Involving Pelvic Region And Thigh 10/09/2011 SALGUERO DO, PHILIPPE K 729.5 Pain In Limb 10/09/2011 SALGUERO DO, PHILIPPE K 782.3 EDEMA 10/09/2011 SALGUERO DO, PHILIPPE K 782.62 Flushing 10/09/2011 SALGUERO DO, PHILIPPE K 719.45 Pain In Joint Involving Pelvic Region And Thigh 10/09/2011 SALGUERO DO, PHILIPPE K 729.5 Pain In Limb 10/09/2011 SALGUERO DO, PHILIPPE K 782.3 EDEMA 10/09/2011 SALGUERO DO, PHILIPPE K 782.62 Flushing 10/09/2011 SALGUERO DO, PHILIPPE K 719.45 Pain In Joint Involving Pelvic Region And Thigh 10/09/2011 SALGUERO DO, PHILIPPE K 729.5 Pain In Limb 10/09/2011 SALGUERO DO, PHILIPPE K 782.3 EDEMA 10/09/2011 SALGUERO DO, PHILIPPE K 782.62 Flushing 10/09/2011 SALGUERO DO, PHILIPPE K 719.45 Pain In Joint Involving Pelvic Region And Thigh 10/09/2011 SALGUERO DO, PHILIPPE K 729.5 Pain In Limb 10/09/2011 SALGUERO DO, PHILIPPE K 782.3 EDEMA 10/09/2011 SALGUERO DO, PHILIPPE K 782.62 Flushing 10/09/2011 SALGUERO DO, PHILIPPE K 719.45 Pain In Joint Involving Pelvic Region And Thigh 10/09/2011 SALGUERO DO, PHILIPPE K 729.5 Pain In Limb 10/09/2011 SALGUERO DO, PHILIPPE K 782.3 EDEMA 10/09/2011 SALGUERO DO, PHILIPPE K 782.62 Flushing 10/09/2011 SALGUERO DO, PHILIPPE K 719.45 Pain In Joint Involving Pelvic Region And Thigh 10/09/2011 SALGUERO DO, PHILIPPE K 729.5 Pain In Limb 10/09/2011 SALGUERO DO, PHILIPPE K 782.3 EDEMA 10/09/2011 SALGUERO DO, PHILIPPE K 782.62 Flushing 10/09/2011 SALGUERO DO, PHILIPPE K 719.45 Pain In Joint Involving Pelvic Region And Thigh 10/09/2011 SALGUERO DO, PHILIPPE K 729.5 Pain In Limb 10/09/2011 SALGUERO DO, PHILIPPE K 782.3 EDEMA 10/09/2011 SALGUERO DO, PHILIPPE K 782.62 Flushing 10/09/2011 SALGUERO DO, PHILIPPE K 719.45 Pain In Joint Involving Pelvic Region And Thigh 10/09/2011 SALGUERO DO, PHILIPPE K 729.5 Pain In Limb 10/09/2011 SALGUERO DO, PHILIPPE K 782.3 EDEMA 10/09/2011 SALGUERO DO, PHILIPPE K 782.62 Flushing 10/09/2011 WHITE DDS, DEEDEE J 719.45 Pain In Joint Involving Pelvic Region And Thigh 10/09/2011 WHITE DDS, DEEDEE J 729.5 Pain In Limb 10/09/2011 WHITE DDS, DEEDEE J 782.3 EDEMA 10/09/2011 WHITE DDS, DEEDEE J 782.62 Flushing 10/09/2011 MAEVE NARAYANAN PA-C 719.45 Pain In Joint Involving Pelvic Region And Thigh 10/09/2011 MAEVE NARAYANAN PA-C 729.5 Pain In Limb 10/09/2011 MAEVE NARAYANAN PA-C 782.3 EDEMA 10/09/2011 MAEVE NARAYANAN PA-C 782.62 Flushing 10/09/2011 SALGUERO DOPHILIPPE K 719.45 Pain In Joint Involving Pelvic Region And Thigh 10/09/2011 SALGUERO DO, PHILIPPE K 729.5 Pain In Limb 10/09/2011 SALGUERO DO, PHILIPPE K 782.3 EDEMA 10/09/2011 SALGUERO DO, PHILIPPE K 782.62 Flushing 10/09/2011 WHITE DDSDEEDEE J 719.45 Pain In Joint Involving Pelvic Region And Thigh 10/09/2011 WHITE DDS, DEEDEE J 729.5 Pain In Limb 10/09/2011 WHITE DDS, DEEDEE J 782.3 EDEMA 10/09/2011 WHITE DDS, DEEDEE J 782.62 Flushing 10/09/2011 ASHELY SPANGLERNJUAREZA J 719.45 Pain In Joint Involving Pelvic Region And Thigh 10/09/2011 JUAREZ LUND APRNA J 729.5 Pain In Limb 10/09/2011 JUAREZ LUND APRNA J 782.3 EDEMA 10/09/2011 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JUAREZA J 782.62 Flushing 10/09/2011 SALGUERO DO, PHILIPPE K 719.45 Pain In Joint Involving Pelvic Region And Thigh 10/09/2011 SALGUERO DO, PHILIPPE K 729.5 Pain In Limb 10/09/2011 SALGUERO DO, PHILIPPE K 782.3 EDEMA 10/09/2011 SALGUERO DO, PHILIPPE K 782.62 Flushing 10/09/2011 SALGUERO DO, PHILIPPE K 719.45 Pain In Joint Involving Pelvic Region And Thigh 10/09/2011 SALGUERO DO, PHILIPPE K 729.5 Pain In Limb 10/09/2011 SALGUERO DO, PHILIPPE K 782.3 EDEMA 10/09/2011 SALGUERO DO, PHILIPPE K 782.62 Flushing 10/09/2011 JUAREZ LUND APRNA J 719.45 Pain In Joint Involving Pelvic Region And Thigh 10/09/2011 ASHELY SPANGLERN BOY J 729.5 Pain In Limb 10/09/2011 ASHELY SPANGLERNBECKYBOY J 782.3 EDEMA 10/09/2011 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 BOY J 782.62 Flushing 10/09/2011 WHITE DDS, DEEDEE J 719.45 Pain In Joint Involving Pelvic Region And Thigh 10/09/2011 WHITE DDS, DEEDEE J 729.5 Pain In Limb 10/09/2011 WHITE DDS, DEEDEE J 782.3 EDEMA 10/09/2011 WHITE DDS, DEEDEE J 782.62 Flushing 10/09/2011 WHITE DDS, DEEDEE J 719.45 Pain In Joint Involving Pelvic Region And Thigh 10/09/2011 WHITE DDS, DEEDEE J 729.5 Pain In Limb 10/09/2011 WHITE DDS, DEEDEE J 782.3 EDEMA 10/09/2011 WHITE DDS, DEEDEE J 782.62 Flushing 10/09/2011 SALGUERO DO, PHILIPPE K 719.45 Pain In Joint Involving Pelvic Region And Thigh 10/09/2011 SALGUERO DO, PHILIPPE K 729.5 Pain In Limb 10/09/2011 SALGUERO DO, PHILIPPE K 782.3 EDEMA 10/09/2011 SALGUERO DO, PHILIPPE K 782.62 Flushing 10/09/2011 ASHELY JUAREZ VASQUESA J 719.45 Pain In Joint Involving Pelvic Region And Thigh 10/09/2011 JUAREZ LUND APRNA J 729.5 Pain In Limb 10/09/2011 JUAREZ LUND APRNA J 782.3 EDEMA 10/09/2011 ASHELY BECKY VASQUESINDA J 782.62 Flushing 10/09/2011 ASHELY VASQUES BOY J 719.45 Pain In Joint Involving Pelvic Region And Thigh 10/09/2011 JUAREZ LUND APRNA J 729.5 Pain In Limb 10/09/2011 BECKY LUND APRNINDA J 782.3 EDEMA 10/09/2011 ASHELY CAPRICE BOY J 782.62 Flushing 10/09/2011 BECKY LUND APRNINDA J 719.45 Pain In Joint Involving Pelvic Region And Thigh 10/09/2011 ASHELY SPANGLERN BOY J 729.5 Pain In Limb 10/09/2011 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, BOY J 782.3 EDEMA 10/09/2011 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 BOY J 782.62 Flushing 10/09/2011 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 BOY J 719.45 Pain In Joint Involving Pelvic Region And Thigh 10/09/2011 ASHELY SPANGLERN BOY J 729.5 Pain In Limb 10/09/2011 ASHELY VASQUES BOY J 782.3 EDEMA 10/09/2011 BOY LUND APRN J 782.62 Flushing 10/09/2011 SALGUERO DO, PHILIPPE K 719.45 Pain In Joint Involving Pelvic Region And Thigh 10/09/2011 SALGUERO DO, PHILIPPE K 729.5 Pain In Limb 10/09/2011 SALGUERO DO, PHILIPPE K 782.3 EDEMA 10/09/2011 SALGUERO DO, PHILIPPE K 782.62 Flushing 10/09/2011 SALGUERO DO, PHILIPPE K 719.45 Pain In Joint Involving Pelvic Region And Thigh 10/09/2011 SALGUERO DO, PHILIPPE K 729.5 Pain In Limb 10/09/2011 SALGUERO DO, PHILIPPE K 782.3 EDEMA 10/09/2011 SALGUERO DO, PHILIPPE K 782.62 Flushing 10/09/2011 BOY LUND APRN 719.45 Pain In Joint Involving Pelvic Region And Thigh 10/09/2011 BOY LUND APRN 729.5 Pain In Limb 10/09/2011 BOY LUND APRN J 782.3 EDEMA 10/09/2011 BOY LUND APRN J 782.62 Flushing 10/09/2011 BOY LUND APRN J 719.45 Pain In Joint Involving Pelvic Region And Thigh 10/09/2011 BOY LUND APRN J 729.5 Pain In Limb 10/09/2011 BOY LUND APRN J 782.3 EDEMA 10/09/2011 BOY LUND APRN J 782.62 Flushing 10/09/2011 BOY LUND APRN 719.45 Pain In Joint Involving Pelvic Region And Thigh 10/09/2011 BOY LUND APRN J 729.5 Pain In Limb 10/09/2011 BOY LUND APRN J 782.3 EDEMA 10/09/2011 ASHELY JUAREZ VASQUESA J 782.62 Flushing 10/09/2011 SALGUERO DO PHILIPPE K 719.45 Pain In Joint Involving Pelvic Region And Thigh 10/09/2011 SALGUERO DO, PHILIPPE K 729.5 Pain In Limb 10/09/2011 SALGUERO DO, PHILIPPE K 782.3 EDEMA 10/09/2011 SALGUERO DO, PHILIPPE K 782.62 Flushing 10/09/2011 ASHELY BOY VASQUES J 719.45 Pain In Joint Involving Pelvic Region And Thigh 10/09/2011 BOY LUND APRN J 729.5 Pain In Limb 10/09/2011 BOY LUND APRN J 782.3 EDEMA 10/09/2011 ASHELY JUAREZ VASQUESA J 782.62 Flushing 10/09/2011 IVET LSCS, JACKIE R 719.45 Pain In Joint Involving Pelvic Region And Thigh 10/09/2011 IVET LSCS, JACKIE R 729.5 Pain In Limb 10/09/2011 IVET LSCS, JACKIE R 782.3 EDEMA 10/09/2011 IVET LSCS, JACKIE R 782.62 Flushing 10/09/2011 SALGUERO DO, PHILIPPE K 719.45 Pain In Joint Involving Pelvic Region And Thigh 10/09/2011 SALGUERO DO, PHILIPPE K 729.5 Pain In Limb 10/09/2011 SALGUERO DO, PHILIPPE K 782.3 EDEMA 10/09/2011 SALGUERO DO, PHILIPPE K 782.62 Flushing 10/09/2011 SALGUERO DO, PHILIPPE K 719.45 Pain In Joint Involving Pelvic Region And Thigh 10/09/2011 SALGUERO DO, PHILIPPE K 729.5 Pain In Limb 10/09/2011 SALGUERO DO, PHILIPPE K 782.3 EDEMA 10/09/2011 SALGUERO DO, PHILIPPE K 782.62 Flushing 10/09/2011 MOYDANNY SPANGLERN, CHRIS A 719.45 Pain In Joint Involving Pelvic Region And Thigh 10/09/2011 MOY GROCERY DELIVERER, CHRIS A 729.5 Pain In Limb 10/09/2011 MOY GROCERY DELIVERER, CHRIS A 782.3 EDEMA 10/09/2011 MOY GROCERY DELIVERER, CHRIS A 782.62 Flushing 10/09/2011 SALGUERO DO, PHILIPPE K 719.45 Pain In Joint Involving Pelvic Region And Thigh 10/09/2011 SALGUERO DO, PHILIPPE K 729.5 Pain In Limb 10/09/2011 SALGUERO DO, PHILIPPE K 782.3 EDEMA 10/09/2011 SALGUERO DO, PHILIPPE K 782.62 Flushing 10/09/2011 BYO LUND APRN J 719.45 Pain In Joint Involving Pelvic Region And Thigh 10/09/2011 BOY LUND APRN J 729.5 Pain In Limb 10/09/2011 BOY LUND APRN J 782.3 EDEMA 10/09/2011 BOY LUND APRN 782.62 Flushing 10/09/2011 SALGUERO DO PHILIPPE K 719.45 Pain In Joint Involving Pelvic Region And Thigh 10/09/2011 SALGUERO DO PHILIPPE K 729.5 Pain In Limb 10/09/2011 SALGUERO DO PHILIPPE K 782.3 EDEMA 10/09/2011 SALGUERO DO, PHILIPPE K 782.62 Flushing 01/15/2012 704.8 Folliculitis 01/15/2012 MIRI DEL VALLES, LOBO N 704.8 Folliculitis 01/15/2012 704.8 Folliculitis 01/15/2012 SALGUERO DO, PHILIPPE K 704.8 Folliculitis 01/15/2012 SALGUERO DO, PHILIPPE K 704.8 Folliculitis 01/15/2012 SALGUERO DO, PHILIPPE K 704.8 Folliculitis 01/15/2012 704.8 Folliculitis 01/15/2012 704.8 Folliculitis 01/15/2012 704.8 Folliculitis 01/15/2012 704.8 Folliculitis 01/15/2012 704.8 Folliculitis 01/15/2012 704.8 Folliculitis 01/15/2012 SALGUERO DO, PHILIPPE K 704.8 Folliculitis 01/15/2012 704.8 Folliculitis 01/15/2012 704.8 Folliculitis 01/15/2012 SALGUERO DO, PHILIPPE K 704.8 Folliculitis 01/15/2012 SALGUERO DO, PHILIPPE K 704.8 Folliculitis 01/15/2012 SALGUERO DO, PHILIPPE K 704.8 Folliculitis 01/15/2012 SALGUERO DO, PHILIPPE K 704.8 Folliculitis 01/15/2012 SALGUERO DO, PHILIPPE K 704.8 Folliculitis 01/15/2012 SALGUERO DO, PHILIPPE K 704.8 Folliculitis 01/15/2012 SALGUERO DO, PHILIPPE K 704.8 Folliculitis 01/15/2012 SALGUERO DO, PHILIPPE K 704.8 Folliculitis 01/15/2012 SALGUERO DO, PHILIPPE K 704.8 Folliculitis 01/15/2012 WHITE DDS, DEEDEE J 704.8 Folliculitis 01/15/2012 MAEVE NARAYANAN PA-C 704.8 Folliculitis 01/15/2012 SALGUERO DO, PHILIPPE K 704.8 Folliculitis 01/15/2012 WHITE DDS, DEEDEE J 704.8 Folliculitis 01/15/2012 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, BOY J 704.8 Folliculitis 01/15/2012 SALGUERO DO, PHILIPPE K 704.8 Folliculitis 01/15/2012 SALGUERO DO, PHILIPPE K 704.8 Folliculitis 01/15/2012 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, BOY J 704.8 Folliculitis 01/15/2012 WHITE DDS, DEEDEE J 704.8 Folliculitis 01/15/2012 WHITE DDS, DEEDEE J 704.8 Folliculitis 01/15/2012 SALGUERO DO, PHILIPPE K 704.8 Folliculitis 01/15/2012 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, BOY J 704.8 Folliculitis 01/15/2012 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, BOY J 704.8 Folliculitis 01/15/2012 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, BOY J 704.8 Folliculitis 01/15/2012 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, BOY J 704.8 Folliculitis 01/15/2012 SALGUERO DO, PHILIPPE K 704.8 Folliculitis 01/15/2012 SALGUERO DO, PHILIPPE K 704.8 Folliculitis 01/15/2012 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, BOY J 704.8 Folliculitis 01/15/2012 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, BOY J 704.8 Folliculitis 01/15/2012 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, BOY J 704.8 Folliculitis 01/15/2012 SALGUERO DO, PHILIPPE K 704.8 Folliculitis 01/15/2012 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, BOY J 704.8 Folliculitis 01/15/2012 IVET JACKIE DRAPER 704.8 Folliculitis 01/15/2012 SALGUERO DO, PHILIPPE K 704.8 Folliculitis 01/15/2012 SALGUERO DO, PHILIPPE K 704.8 Folliculitis 01/15/2012 CHRIS WINTER APRN 704.8 Folliculitis 01/15/2012 PHILIPPE SALGUERO DO K 704.8 Folliculitis 01/15/2012 BOY LUND APRN Marine 704.8 Folliculitis 01/15/2012 PHILIPPE SALGUERO DO K 704.8 Folliculitis 02/04/2012 276.8 HYPOPOTASSEMIA 02/04/2012 311 DEPRESSIVE DISORDER NOT ELSEWHERE CLASSIFIED 02/04/2012 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 02/04/2012 709.9 UNSPECIFIED DISORDER OF SKIN AND SUBCUTANEOUS TISSUE 02/04/2012 728.85 SPASM OF MUSCLE 02/04/2012 728.87 Muscle Weakness (generalized) 02/04/2012 786.07 Wheezing 02/04/2012 MUOGHALU DDS, LOBO N 276.8 HYPOPOTASSEMIA 02/04/2012 MUOGHALU DDS, LOBO N 311 DEPRESSIVE DISORDER NOT ELSEWHERE CLASSIFIED 02/04/2012 MUOGHALU DDS, LOBO N 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 02/04/2012 MUOGHALU DDS, LOBO N 709.9 UNSPECIFIED DISORDER OF SKIN AND SUBCUTANEOUS TISSUE 02/04/2012 MUOGHALU DDS, LOBO N 728.85 SPASM OF MUSCLE 02/04/2012 MUOGHALU DDS, LOBO N 728.87 Muscle Weakness (generalized) 02/04/2012 MUOGHALU DDS, LOBO N 786.07 Wheezing 02/04/2012 276.8 HYPOPOTASSEMIA 02/04/2012 311 DEPRESSIVE DISORDER NOT ELSEWHERE CLASSIFIED 02/04/2012 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 02/04/2012 709.9 UNSPECIFIED DISORDER OF SKIN AND SUBCUTANEOUS TISSUE 02/04/2012 728.85 SPASM OF MUSCLE 02/04/2012 728.87 Muscle Weakness (generalized) 02/04/2012 786.07 Wheezing 02/04/2012 PHILIPPE SALGUERO DO K 276.8 HYPOPOTASSEMIA 02/04/2012 PHILIPPE SALGUERO DO K 311 DEPRESSIVE DISORDER NOT ELSEWHERE CLASSIFIED 02/04/2012 PHILIPPE SALGUERO DO K 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 02/04/2012 PHILIPPE SALGUERO DO K 709.9 UNSPECIFIED DISORDER OF SKIN AND SUBCUTANEOUS TISSUE 02/04/2012 PHILIPPE SALGUERO DO K 728.85 SPASM OF MUSCLE 02/04/2012 PHILIPPE SALGUERO DO K 728.87 Muscle Weakness (generalized) 02/04/2012 PHILIPPE SALGUERO DO K 786.07 Wheezing 02/04/2012 TANISHA SALGUERO DOA K 276.8 HYPOPOTASSEMIA 02/04/2012 TANISHA SALGUERO DOA K 311 DEPRESSIVE DISORDER NOT ELSEWHERE CLASSIFIED 02/04/2012 PHILIPPE SALGUERO DO K 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 02/04/2012 PHILIPPE SALGUERO DO K 709.9 skin lesion [Sx] 02/04/2012 NOEMY OLVERA PHILIPPE K 728.85 SPASM OF MUSCLE 02/04/2012 NOEMY OLVERA PHILIPPE K 728.87 Muscle Weakness (generalized) 02/04/2012 NOEMY OLVERA PHILIPPE K 786.07 Wheezing 02/04/2012 NOEMY OLVERA PHILIPPE K 276.8 HYPOPOTASSEMIA 02/04/2012 NOEMY OLVERA PHILIPPE K 311 DEPRESSIVE DISORDER NOT ELSEWHERE CLASSIFIED 02/04/2012 NOEMY OLVERA PHILIPPE K 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 02/04/2012 NOEMY OLVERA PHILIPPE K 709.9 skin lesion [Sx] 02/04/2012 NOEMY OLVERA PHILIPPE K 728.85 SPASM OF MUSCLE 02/04/2012 NOEMY OLVERA PHILIPPE K 728.87 Muscle Weakness (generalized) 02/04/2012 PHILIPPE SALGUERO DO K 786.07 Wheezing 02/04/2012 276.8 HYPOPOTASSEMIA 02/04/2012 311 DEPRESSIVE DISORDER NOT ELSEWHERE CLASSIFIED 02/04/2012 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 02/04/2012 709.9 skin lesion [Sx] 02/04/2012 728.85 SPASM OF MUSCLE 02/04/2012 728.87 Muscle Weakness (generalized) 02/04/2012 786.07 Wheezing 02/04/2012 276.8 HYPOPOTASSEMIA 02/04/2012 311 DEPRESSIVE DISORDER NOT ELSEWHERE CLASSIFIED 02/04/2012 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 02/04/2012 709.9 skin lesion [Sx] 02/04/2012 728.85 SPASM OF MUSCLE 02/04/2012 728.87 Muscle Weakness (generalized) 02/04/2012 786.07 Wheezing 02/04/2012 276.8 HYPOPOTASSEMIA 02/04/2012 311 DEPRESSIVE DISORDER NOT ELSEWHERE CLASSIFIED 02/04/2012 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 02/04/2012 709.9 skin lesion [Sx] 02/04/2012 728.85 SPASM OF MUSCLE 02/04/2012 728.87 Muscle Weakness (generalized) 02/04/2012 786.07 Wheezing 02/04/2012 276.8 HYPOPOTASSEMIA 02/04/2012 311 DEPRESSIVE DISORDER NOT ELSEWHERE CLASSIFIED 02/04/2012 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 02/04/2012 709.9 SKIN LESION [SX] 02/04/2012 728.85 SPASM OF MUSCLE 02/04/2012 728.87 Muscle Weakness (generalized) 02/04/2012 786.07 Wheezing 02/04/2012 276.8 HYPOPOTASSEMIA 02/04/2012 311 DEPRESSIVE DISORDER NOT ELSEWHERE CLASSIFIED 02/04/2012 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 02/04/2012 709.9 SKIN LESION [SX] 02/04/2012 728.85 SPASM OF MUSCLE 02/04/2012 728.87 Muscle Weakness (generalized) 02/04/2012 786.07 Wheezing 02/04/2012 276.8 HYPOPOTASSEMIA 02/04/2012 311 DEPRESSIVE DISORDER NOT ELSEWHERE CLASSIFIED 02/04/2012 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 02/04/2012 709.9 SKIN LESION [SX] 02/04/2012 728.85 SPASM OF MUSCLE 02/04/2012 728.87 Muscle Weakness (generalized) 02/04/2012 786.07 Wheezing 02/04/2012 PHILIPPE SALGUERO DO 276.8 HYPOPOTASSEMIA 02/04/2012 PHILIPPE SALGUERO DO 311 DEPRESSIVE DISORDER NOT ELSEWHERE CLASSIFIED 02/04/2012 PHILIPPE SALGUERO DO 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 02/04/2012 PHILIPPE SALGUERO DO 709.9 UNSPECIFIED DISORDER OF SKIN AND SUBCUTANEOUS TISSUE 02/04/2012 PHILIPPE SALGUERO DO 728.85 SPASM OF MUSCLE 02/04/2012 PHILIPPE SALGUERO DO 728.87 Muscle Weakness (generalized) 02/04/2012 PHILIPPE SALGUERO DO 786.07 Wheezing 02/04/2012 276.8 HYPOPOTASSEMIA 02/04/2012 311 DEPRESSIVE DISORDER NOT ELSEWHERE CLASSIFIED 02/04/2012 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 02/04/2012 709.9 SKIN LESION [SX] 02/04/2012 728.85 SPASM OF MUSCLE 02/04/2012 728.87 Muscle Weakness (generalized) 02/04/2012 786.07 Wheezing 02/04/2012 276.8 HYPOPOTASSEMIA 02/04/2012 311 DEPRESSIVE DISORDER NOT ELSEWHERE CLASSIFIED 02/04/2012 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 02/04/2012 709.9 SKIN LESION [SX] 02/04/2012 728.85 SPASM OF MUSCLE 02/04/2012 728.87 Muscle Weakness (generalized) 02/04/2012 786.07 Wheezing 02/04/2012 SALGUERO DO, PHILIPPE K 276.8 HYPOPOTASSEMIA 02/04/2012 SALGUERO DO, PHILIPPE K 311 DEPRESSIVE DISORDER NOT ELSEWHERE CLASSIFIED 02/04/2012 SALGUERO DO, PHILIPPE K 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 02/04/2012 SALGUERO DO, PHILIPPE K 709.9 SKIN LESION [SX] 02/04/2012 SALGUERO DO, PHILIPPE K 728.85 SPASM OF MUSCLE 02/04/2012 SALGUERO DO, PHILIPPE K 728.87 Muscle Weakness (generalized) 02/04/2012 SALGUERO DO PHILIPPE K 786.07 Wheezing 02/04/2012 SALGUERO DO, PHILIPPE K 276.8 HYPOPOTASSEMIA 02/04/2012 SALGUERO DO, PHILIPPE K 311 DEPRESSIVE DISORDER NOT ELSEWHERE CLASSIFIED 02/04/2012 SALGUERO DO, PHILIPPE K 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 02/04/2012 SALGUERO DO, PHILIPPE K 709.9 SKIN LESION [SX] 02/04/2012 SALGUERO DO, PHILIPPE K 728.85 SPASM OF MUSCLE 02/04/2012 SALGUERO DO, PHILIPPE K 728.87 Muscle Weakness (generalized) 02/04/2012 SALGUERO DO, PHILIPPE K 786.07 Wheezing 02/04/2012 SALGUERO DO, PHILIPPE K 276.8 HYPOPOTASSEMIA 02/04/2012 SALGUERO DO, PHILIPPE K 311 DEPRESSIVE DISORDER NOT ELSEWHERE CLASSIFIED 02/04/2012 SALGUERO DO, PHILIPPE K 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 02/04/2012 SALGUERO DO, PHILIPPE K 709.9 SKIN LESION [SX] 02/04/2012 SALGUERO DO, PHILIPPE K 728.85 SPASM OF MUSCLE 02/04/2012 SALGUERO DO, PHILIPPE K 728.87 Muscle Weakness (generalized) 02/04/2012 SALGUERO DO, PHILIPPE K 786.07 Wheezing 02/04/2012 SALGUERO DO, PHILIPPE K 276.8 HYPOPOTASSEMIA 02/04/2012 SALGUERO DO, PHILIPPE K 311 DEPRESSIVE DISORDER NOT ELSEWHERE CLASSIFIED 02/04/2012 SALGUERO DO, PHILIPPE K 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 02/04/2012 SALGUERO DO, PHILIPPE K 709.9 SKIN LESION [SX] 02/04/2012 SALGUERO DO, PHILIPPE K 728.85 SPASM OF MUSCLE 02/04/2012 SALGUERO DO, PHILIPPE K 728.87 Muscle Weakness (generalized) 02/04/2012 SALGUERO DO, PHILIPPE K 786.07 Wheezing 02/04/2012 SALGUERO DO, PHILIPPE K 276.8 HYPOPOTASSEMIA 02/04/2012 SALGUERO DO, PHILIPPE K 311 DEPRESSIVE DISORDER NOT ELSEWHERE CLASSIFIED 02/04/2012 SALGUERO DO, PHILIPPE K 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 02/04/2012 SALGUERO DO, PHILIPPE K 709.9 SKIN LESION [SX] 02/04/2012 SALGUERO DO, PHILIPPE K 728.85 SPASM OF MUSCLE 02/04/2012 SALGUERO DO, PHILIPPE K 728.87 Muscle Weakness (generalized) 02/04/2012 SALGUERO DO PHILIPPE K 786.07 Wheezing 02/04/2012 SALGUERO DO, PHILIPPE K 276.8 HYPOPOTASSEMIA 02/04/2012 SALGUERO DO, PHILIPPE K 311 DEPRESSIVE DISORDER NOT ELSEWHERE CLASSIFIED 02/04/2012 SALGUERO DO, PHILIPPE K 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 02/04/2012 SALGUERO DO, PHILIPPE K 709.9 SKIN LESION [SX] 02/04/2012 SALGUERO DO, PHILIPPE K 728.85 SPASM OF MUSCLE 02/04/2012 SALGUERO DO, PHILIPPE K 728.87 Muscle Weakness (generalized) 02/04/2012 SALGUERO DO, PHILIPPE K 786.07 Wheezing 02/04/2012 SALGUERO DO, PHILIPPE K 276.8 HYPOPOTASSEMIA 02/04/2012 SALGUERO DO, PHILIPPE K 311 DEPRESSIVE DISORDER NOT ELSEWHERE CLASSIFIED 02/04/2012 SALGUERO DO, PHILIPPE K 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 02/04/2012 SALGUERO DO, PHILIPPE K 709.9 SKIN LESION [SX] 02/04/2012 SALGUERO DO, PHILIPPE K 728.85 SPASM OF MUSCLE 02/04/2012 SALGUERO DO, PHILIPPE K 728.87 Muscle Weakness (generalized) 02/04/2012 SALGUERO DO, PHILIPPE K 786.07 Wheezing 02/04/2012 SALGUERO DO, PHILIPPE K 276.8 HYPOPOTASSEMIA 02/04/2012 SALGUERO DO, PHILIPPE K 311 DEPRESSIVE DISORDER NOT ELSEWHERE CLASSIFIED 02/04/2012 TNAISHA SALGUERO DOA K 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 02/04/2012 TANISHA SALGUERO DOA K 709.9 SKIN LESION [SX] 02/04/2012 NOEMY OLVERA PHILIPPE K 728.85 SPASM OF MUSCLE 02/04/2012 SALGUERO , PHILIPPE K 728.87 Muscle Weakness (generalized) 02/04/2012 TANISHA SALGUERO DOA K 786.07 Wheezing 02/04/2012 TANISHA SALGUERO DOA K 276.8 HYPOPOTASSEMIA 02/04/2012 NOEMY OLVERA PHILIPPE K 311 DEPRESSIVE DISORDER NOT ELSEWHERE CLASSIFIED 02/04/2012 TANISHA SALGUERO DOA K 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 02/04/2012 TANISHA SALGUERO DOA K 709.9 SKIN LESION [SX] 02/04/2012 TANISHA SALGUERO DOA K 728.85 SPASM OF MUSCLE 02/04/2012 NOEMY OLVERA PHILIPPE K 728.87 Muscle Weakness (generalized) 02/04/2012 TANISHA SALGUERO DOA K 786.07 Wheezing 02/04/2012 WHITE DDS, DEEDEE J 276.8 HYPOPOTASSEMIA 02/04/2012 WHITE DDS, DEEDEE J 311 DEPRESSIVE DISORDER NOT ELSEWHERE CLASSIFIED 02/04/2012 WHITE DDS, DEEDEE J 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 02/04/2012 WHITE DDS, DEEDEE J 709.9 SKIN LESION [SX] 02/04/2012 WHITE DDS, DEEDEE J 728.85 SPASM OF MUSCLE 02/04/2012 WHITE DDS, DEEDEE J 728.87 Muscle Weakness (generalized) 02/04/2012 WHITE DDS, DEEDEE J 786.07 Wheezing 02/04/2012 MAEVE NARAYANAN PA-C 276.8 HYPOPOTASSEMIA 02/04/2012 MAEVE NARAYANAN PA-C 311 DEPRESSIVE DISORDER NOT ELSEWHERE CLASSIFIED 02/04/2012 MAEVE NARAYANAN PA-C 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 02/04/2012 MAEVE NARAYANAN PA-C 709.9 SKIN LESION [SX] 02/04/2012 MAEVE NARAYANAN PA-C 728.85 SPASM OF MUSCLE 02/04/2012 MAEVE NARAYANAN PA-C 728.87 Muscle Weakness (generalized) 02/04/2012 MAEVE NARAYANAN PA-C 786.07 Wheezing 02/04/2012 TANISHA SALGUERO DOA K 276.8 HYPOPOTASSEMIA 02/04/2012 NOEMY OLVERA PHILIPPE K 311 DEPRESSIVE DISORDER NOT ELSEWHERE CLASSIFIED 02/04/2012 TANISHA SALGUERO DOA K 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 02/04/2012 NOEMY OLVERA PHILIPPE K 709.9 SKIN LESION [SX] 02/04/2012 SALGUERO DO PHILIPPE K 728.85 SPASM OF MUSCLE 02/04/2012 SALGUERO DO PHILIPPE K 728.87 Muscle Weakness (generalized) 02/04/2012 TANISHA SALGUERO DOA K 786.07 Wheezing 02/04/2012 WHITE DDS, DEEDEE J 276.8 HYPOPOTASSEMIA 02/04/2012 WHITE DDS, DEEDEE J 311 DEPRESSIVE DISORDER NOT ELSEWHERE CLASSIFIED 02/04/2012 WHITE DDS, DEEDEE J 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 02/04/2012 WHITE DDS, DEEDEE J 709.9 SKIN LESION [SX] 02/04/2012 WHITE DDS, DEEDEE J 728.85 SPASM OF MUSCLE 02/04/2012 WHITE DDS, DEEDEE J 728.87 Muscle Weakness (generalized) 02/04/2012 WHITE DDS, DEEDEE J 786.07 Wheezing 02/04/2012 BOY LUND APRN 276.8 HYPOPOTASSEMIA 02/04/2012 BOY LUND APRN 311 DEPRESSIVE DISORDER NOT ELSEWHERE CLASSIFIED 02/04/2012 BOY LUND APRN J 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 02/04/2012 BOY LUND APRN J 709.9 SKIN LESION [SX] 02/04/2012 BOY LUND APRN J 728.85 SPASM OF MUSCLE 02/04/2012 BECKY LUND APRNINDA J 728.87 Muscle Weakness (generalized) 02/04/2012 BECKY LUND APRNINDA J 786.07 Wheezing 02/04/2012 TANISHA SALGUERO DOA K 276.8 HYPOPOTASSEMIA 02/04/2012 TANISHA SALGUERO DOA K 311 DEPRESSIVE DISORDER NOT ELSEWHERE CLASSIFIED 02/04/2012 TANISHA SALGUERO DOA K 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 02/04/2012 TANISHA SALGUERO DOA K 709.9 SKIN LESION [SX] 02/04/2012 TANISHA SALGUERO DOA K 728.85 SPASM OF MUSCLE 02/04/2012 NOEMY OLVERA PHILIPPE K 728.87 Muscle Weakness (generalized) 02/04/2012 TANISHA SALGUERO DOA K 786.07 Wheezing 02/04/2012 NOEMY OLVERA PHILIPPE K 276.8 HYPOPOTASSEMIA 02/04/2012 NOEMY OLVERA PHILIPPE K 311 DEPRESSIVE DISORDER NOT ELSEWHERE CLASSIFIED 02/04/2012 TANISHA SALGUERO DOA K 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 02/04/2012 NOEMY OLVERA PHILIPPE K 709.9 SKIN LESION [SX] 02/04/2012 TANISHA SALGUERO DOA K 728.85 SPASM OF MUSCLE 02/04/2012 TANISHA SALGUERO DOA K 728.87 Muscle Weakness (generalized) 02/04/2012 NOEMY OLVERA PHILIPPE K 786.07 Wheezing 02/04/2012 BOY LUND APRN J 276.8 HYPOPOTASSEMIA 02/04/2012 BOY LUND APRN 311 DEPRESSIVE DISORDER NOT ELSEWHERE CLASSIFIED 02/04/2012 BOY LUND APRN 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 02/04/2012 BOY LUND APRN 709.9 SKIN LESION [SX] 02/04/2012 BOY LUND APRN J 728.85 SPASM OF MUSCLE 02/04/2012 JUAREZ LUND APRNA J 728.87 Muscle Weakness (generalized) 02/04/2012 BOY LUND APRN 786.07 Wheezing 02/04/2012 WHITE DDS, DEEDEE J 276.8 HYPOPOTASSEMIA 02/04/2012 WHITE DDSSARABJITON J 311 DEPRESSIVE DISORDER NOT ELSEWHERE CLASSIFIED 02/04/2012 WHITE DDSSARABJITON J 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 02/04/2012 WHITE DDS, DEEDEE J 709.9 SKIN LESION [SX] 02/04/2012 WHITE DDS, DEEDEE J 728.85 SPASM OF MUSCLE 02/04/2012 WHITE DDS, DEEDEE J 728.87 Muscle Weakness (generalized) 02/04/2012 WHITE DDS, DEEDEE J 786.07 Wheezing 02/04/2012 WHITE DDS, DEEDEE J 276.8 HYPOPOTASSEMIA 02/04/2012 WHITE DDSSARABJITON J 311 DEPRESSIVE DISORDER NOT ELSEWHERE CLASSIFIED 02/04/2012 WHITE DDS, DEEDEE J 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 02/04/2012 WHITE DDS, DEEDEE J 709.9 SKIN LESION [SX] 02/04/2012 WHITE DDS, DEEDEE J 728.85 SPASM OF MUSCLE 02/04/2012 WHITE DDS, DEEDEE J 728.87 Muscle Weakness (generalized) 02/04/2012 WHITE DDS, DEEDEE J 786.07 Wheezing 02/04/2012 PHILIPPE SALGUERO DO K 276.8 HYPOPOTASSEMIA 02/04/2012 PHILIPPE SALGUERO DO K 311 DEPRESSIVE DISORDER NOT ELSEWHERE CLASSIFIED 02/04/2012 PHILIPPE SALGUERO DO K 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 02/04/2012 TANISHA SALGUERO DOA K 709.9 SKIN LESION [SX] 02/04/2012 TANISHA SALGUERO DOA K 728.85 SPASM OF MUSCLE 02/04/2012 TANISHA SALGUERO DOA K 728.87 Muscle Weakness (generalized) 02/04/2012 PHILIPPE SALGUERO DO K 786.07 Wheezing 02/04/2012 BOY LUND APRN 276.8 HYPOPOTASSEMIA 02/04/2012 BOY LUND APRN 311 DEPRESSIVE DISORDER NOT ELSEWHERE CLASSIFIED 02/04/2012 BOY LUND APRN 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 02/04/2012 BOY LUND APRN 709.9 SKIN LESION [SX] 02/04/2012 BOY LUND APRN 728.85 SPASM OF MUSCLE 02/04/2012 JUAREZ LUND APRNA Marine 728.87 Muscle Weakness (generalized) 02/04/2012 BOY LUND APRN 786.07 Wheezing 02/04/2012 BOY LUND APRN 276.8 HYPOPOTASSEMIA 02/04/2012 BOY LUND APRN 311 DEPRESSIVE DISORDER NOT ELSEWHERE CLASSIFIED 02/04/2012 JUAREZ LUND APRNA Marine 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 02/04/2012 JUAREZ LUND APRNA J 709.9 SKIN LESION [SX] 02/04/2012 JUAREZ LUND APRNA J 728.85 SPASM OF MUSCLE 02/04/2012 JUAREZ LUND APRNA J 728.87 Muscle Weakness (generalized) 02/04/2012 JUAREZ LUND APRNA [employer] 786.07 Wheezing 02/04/2012 BOY LUND APRN 276.8 HYPOPOTASSEMIA 02/04/2012 BOY LUND APRN 311 DEPRESSIVE DISORDER NOT ELSEWHERE CLASSIFIED 02/04/2012 BOY LUND APRN 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 02/04/2012 BYO LUND APRN 709.9 SKIN LESION [SX] 02/04/2012 BOY LUND APRN 728.85 SPASM OF MUSCLE 02/04/2012 BOY LUND APRN 728.87 Muscle Weakness (generalized) 02/04/2012 BOY LUND APRN 786.07 Wheezing 02/04/2012 BOY LUND APRN 276.8 HYPOPOTASSEMIA 02/04/2012 BOY LUND APRN 311 DEPRESSIVE DISORDER NOT ELSEWHERE CLASSIFIED 02/04/2012 BOY LUND APRN 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 02/04/2012 BOY LUND APRN 709.9 SKIN LESION [SX] 02/04/2012 BOY LUND APRN 728.85 SPASM OF MUSCLE 02/04/2012 BOY LUND APRN 728.87 Muscle Weakness (generalized) 02/04/2012 BOY LUND APRN 786.07 Wheezing 02/04/2012 SALGUERO DO PHILIPPE K 276.8 HYPOPOTASSEMIA 02/04/2012 SALGUERO DO PHILIPPE K 311 DEPRESSIVE DISORDER NOT ELSEWHERE CLASSIFIED 02/04/2012 SALGUERO DO PHILIPPE K 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 02/04/2012 SALGUERO DO PHILIPPE K 709.9 SKIN LESION [SX] 02/04/2012 SALGUERO DO PHILIPPE K 728.85 SPASM OF MUSCLE 02/04/2012 SALGUERO DO PHILIPPE K 728.87 Muscle Weakness (generalized) 02/04/2012 SALGUERO DO, PHILIPPE K 786.07 Wheezing 02/04/2012 SALGUERO DO, PHILIPPE K 276.8 HYPOPOTASSEMIA 02/04/2012 SALGUERO DO PHILIPPE K 311 DEPRESSIVE DISORDER NOT ELSEWHERE CLASSIFIED 02/04/2012 SALGUERO DO PHILIPPE K 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 02/04/2012 SALGUERO DO, PHILIPPE K 709.9 SKIN LESION [SX] 02/04/2012 SALGUERO DO, PHILIPPE K 728.85 SPASM OF MUSCLE 02/04/2012 SALGUERO DO, PHILIPPE K 728.87 Muscle Weakness (generalized) 02/04/2012 SALGUERO DO, PHILIPPE K 786.07 Wheezing 02/04/2012 BOY LUND APRN J 276.8 HYPOPOTASSEMIA 02/04/2012 BOY LUND APRN 311 DEPRESSIVE DISORDER NOT ELSEWHERE CLASSIFIED 02/04/2012 BOY LUND APRN 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 02/04/2012 BOY LUND APRN 709.9 SKIN LESION [SX] 02/04/2012 BOY LUND APRN 728.85 SPASM OF MUSCLE 02/04/2012 JUAREZ LUND APRNA Marine 728.87 Muscle Weakness (generalized) 02/04/2012 BOY LUND APRN 786.07 Wheezing 02/04/2012 BOY LUND APRN 276.8 HYPOPOTASSEMIA 02/04/2012 BOY LUND APRN 311 DEPRESSIVE DISORDER NOT ELSEWHERE CLASSIFIED 02/04/2012 BOY LUND APRN 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 02/04/2012 BOY LUND APRN 709.9 SKIN LESION [SX] 02/04/2012 JUAREZ LUND APRNA Marine 728.85 SPASM OF MUSCLE 02/04/2012 JUAREZ LUND APRNA Marine 728.87 Muscle Weakness (generalized) 02/04/2012 BOY LUND APRN 786.07 Wheezing 02/04/2012 BOY LUND APRN 276.8 HYPOPOTASSEMIA 02/04/2012 BOY LUND APRN 311 DEPRESSIVE DISORDER NOT ELSEWHERE CLASSIFIED 02/04/2012 BOY LUND APRN 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 02/04/2012 BOY LUND APRN 709.9 SKIN LESION [SX] 02/04/2012 JUAREZ LUND APRNA Marine 728.85 SPASM OF MUSCLE 02/04/2012 JUAREZ LUND APRNA J 728.87 Muscle Weakness (generalized) 02/04/2012 BOY LUND APRN 786.07 Wheezing 02/04/2012 TANISHA SALGUERO DOA K 276.8 HYPOPOTASSEMIA 02/04/2012 NOEMY OLVERA PHILIPPE K 311 DEPRESSIVE DISORDER NOT ELSEWHERE CLASSIFIED 02/04/2012 PHILIPPE SALGUERO DO K 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 02/04/2012 SALGUERO DO, PHILIPPE K 709.9 SKIN LESION [SX] 02/04/2012 SALGUERO DO, PHILIPPE K 728.85 SPASM OF MUSCLE 02/04/2012 SALGUERO DO, PHILIPPE K 728.87 Muscle Weakness (generalized) 02/04/2012 NOEMY OLVERA PHILIPPE K 786.07 Wheezing 02/04/2012 BOY LUND APRN J 276.8 HYPOPOTASSEMIA 02/04/2012 BOY LUND APRN J 311 DEPRESSIVE DISORDER NOT ELSEWHERE CLASSIFIED 02/04/2012 BOY LUND APRN J 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 02/04/2012 BOY LUND APRN J 709.9 SKIN LESION [SX] 02/04/2012 BOY LUND APRN J 728.85 SPASM OF MUSCLE 02/04/2012 BOY LUND APRN J 728.87 Muscle Weakness (generalized) 02/04/2012 BOY LUND APRN 786.07 Wheezing 02/04/2012 IVET MAYBARON, JACKIE R 276.8 HYPOPOTASSEMIA 02/04/2012 IVET MAYBARONJAIJACKIE R 311 DEPRESSIVE DISORDER NOT ELSEWHERE CLASSIFIED 02/04/2012 IVET MAYBARON JACKIE R 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 02/04/2012 IVET DIANE, JACKIE R 709.9 SKIN LESION [SX] 02/04/2012 IVET LALOBARON, JACKIE R 728.85 SPASM OF MUSCLE 02/04/2012 IVET ROXI, JACKIE R 728.87 Muscle Weakness (generalized) 02/04/2012 IVET DIANE, JACKIE R 786.07 Wheezing 02/04/2012 TANISHA SALGUERO DOA K 276.8 HYPOPOTASSEMIA 02/04/2012 TANISHA SALGUERO DOA K 311 DEPRESSIVE DISORDER NOT ELSEWHERE CLASSIFIED 02/04/2012 NOEMY OLVERA PHILIPPE K 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 02/04/2012 NOEMY OLVERA PHILIPPE K 709.9 SKIN LESION [SX] 02/04/2012 NOEMY OLVERA PHILIPPE K 728.85 SPASM OF MUSCLE 02/04/2012 SALGUERO DO PHILIPPE K 728.87 Muscle Weakness (generalized) 02/04/2012 NOEMY OLVERA PHILIPPE K 786.07 Wheezing 02/04/2012 NOEMY OLVERA PHILIPPE K 276.8 HYPOPOTASSEMIA 02/04/2012 NOEMY OLVERA PHILIPPE K 311 DEPRESSIVE DISORDER NOT ELSEWHERE CLASSIFIED 02/04/2012 TANISHA SALGUERO DOA K 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 02/04/2012 TAINSHA SALGUERO DOA K 709.9 SKIN LESION [SX] 02/04/2012 NOEMY OLVERA PHILIPPE K 728.85 SPASM OF MUSCLE 02/04/2012 NOEMY OLVERA PHILIPPE K 728.87 Muscle Weakness (generalized) 02/04/2012 NOEMY OLVERA PHILIPPE K 786.07 Wheezing 02/04/2012 MOYCHRIS Curiel APRN A 276.8 HYPOPOTASSEMIA 02/04/2012 MOYCHRIS Curiel APRN A 311 DEPRESSIVE DISORDER NOT ELSEWHERE CLASSIFIED 02/04/2012 MOYCHRIS Curiel APRN A 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 02/04/2012 MOYCHRIS Curiel APRN A 709.9 SKIN LESION [SX] 02/04/2012 MOYCHRIS Curiel APRN A 728.85 SPASM OF MUSCLE 02/04/2012 MOYCHRIS Curiel APRN A 728.87 Muscle Weakness (generalized) 02/04/2012 CHRIS WINTER APRN 786.07 Wheezing 02/04/2012 NOEMY OLVERA PHILIPPE K 276.8 HYPOPOTASSEMIA 02/04/2012 NOEMY OLVERA PHILIPPE K 311 DEPRESSIVE DISORDER NOT ELSEWHERE CLASSIFIED 02/04/2012 NOEMY OLVERA PHILIPPE K 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 02/04/2012 NOEMY OLVERA PHILIPPE K 709.9 SKIN LESION [SX] 02/04/2012 NOEMY OLVERA PHILIPPE K 728.85 SPASM OF MUSCLE 02/04/2012 NOEMY OLVERA PHILIPPE K 728.87 Muscle Weakness (generalized) 02/04/2012 TANISHA SALGUERO DOA K 786.07 Wheezing 02/04/2012 BOY LUND APRN 276.8 HYPOPOTASSEMIA 02/04/2012 BOY LUND APRN 311 DEPRESSIVE DISORDER NOT ELSEWHERE CLASSIFIED 02/04/2012 BOY LUND APRN 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 02/04/2012 BOY LUND APRN 709.9 SKIN LESION [SX] 02/04/2012 BOY LUND APRN 728.85 SPASM OF MUSCLE 02/04/2012 BOY LUND APRN 728.87 Muscle Weakness (generalized) 02/04/2012 BOY LUND APRN 786.07 Wheezing 02/04/2012 SALGUERO DOTANISHAA K 276.8 HYPOPOTASSEMIA 02/04/2012 SALGUERO DO PHILIPPE K 311 DEPRESSIVE DISORDER NOT ELSEWHERE CLASSIFIED 02/04/2012 NOEMY OLVERA PHILIPPE K 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 02/04/2012 NOEMY OLVERA PHILIPPE K 709.9 SKIN LESION [SX] 02/04/2012 SALGUERO DO PHILIPPE K 728.85 SPASM OF MUSCLE 02/04/2012 SALGUERO DO PHILIPPE K 728.87 Muscle Weakness (generalized) 02/04/2012 SALGUERO DO PHILIPPE K 786.07 Wheezing 02/24/2012 496 COPD 02/24/2012 LOBO CHERY DDS 496 COPD 02/24/2012 496 COPD 02/24/2012 SALGUERO DO, PHILIPPE K 496 COPD 02/24/2012 SALGUERO DO, PHILIPPE K 496 COPD 02/24/2012 SALGUERO DO, PHILIPPE K 496 COPD 02/24/2012 496 COPD 02/24/2012 496 COPD 02/24/2012 496 COPD 02/24/2012 496 COPD 02/24/2012 496 COPD 02/24/2012 496 COPD 02/24/2012 SALGUERO DO, PHILIPPE K 496 COPD 02/24/2012 496 COPD 02/24/2012 496 COPD 02/24/2012 SALGUERO DO, PHILIPPE K 496 COPD 02/24/2012 SALGUERO DO, PHILIPPE K 496 COPD 02/24/2012 SALGUERO DO, PHILIPPE K 496 COPD 02/24/2012 SALGUERO DO, PHILIPPE K 496 COPD 02/24/2012 SALGUERO DO, PHILIPPE K 496 COPD 02/24/2012 SALGUERO DO, PHILIPPE K 496 COPD 02/24/2012 SALGUERO DO, PHILIPPE K 496 COPD 02/24/2012 SALGUERO DO, PHILIPPE K 496 COPD 02/24/2012 SALGUERO DO, PHILIPPE K 496 COPD 02/24/2012 DEEDEE SHORT DDS 496 COPD 02/24/2012 MAEVE NARAYANAN PA-C 496 COPD 02/24/2012 SALGUERO DO, PHILIPPE K 496 COPD 02/24/2012 DEEDEE SHORT DDS 496 COPD 02/24/2012 BOY LUND APRN 496 COPD 02/24/2012 SALGUERO DO, PHILIPPE K 496 COPD 02/24/2012 SALGUERO DO, PHILIPPE K 496 COPD 02/24/2012 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, BOY J 496 COPD 02/24/2012 WHITE DDS, DEEDEE J 496 COPD 02/24/2012 WHITE DDS, DEEDEE J 496 COPD 02/24/2012 SALGUERO DO, PHILIPPE K 496 COPD 02/24/2012 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, BOY J 496 COPD 02/24/2012 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, BOY J 496 COPD 02/24/2012 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, BOY J 496 COPD 02/24/2012 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, BOY J 496 COPD 02/24/2012 SALGUERO DO, PHILIPPE K 496 COPD 02/24/2012 SALGUERO DO, PHILIPPE K 496 COPD 02/24/2012 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, BOY J 496 COPD 02/24/2012 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, BOY J 496 COPD 02/24/2012 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, BOY J 496 COPD 02/24/2012 SALGUERO DO, PHILIPPE K 496 COPD 02/24/2012 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, BOY J 496 COPD 02/24/2012 [facility], JACKIE R 496 COPD 02/24/2012 SALGUERO DO, PHILIPPE K 496 COPD 02/24/2012 SALGUERO DO, PHILIPPE K 496 COPD 02/24/2012 CHRIS WINTER APRN 496 COPD 02/24/2012 SALGUERO DO, PHILIPPE K 496 COPD 02/24/2012 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, BOY J 496 COPD 02/24/2012 SALGUERO DO, PHILIPPE K 496 COPD 03/08/2012 799.81 DECREASED LIBIDO 03/08/2012 LOBO CHERY DDS 799.81 DECREASED LIBIDO 03/08/2012 799.81 DECREASED LIBIDO 03/08/2012 SALGUERO DOTANISHAA K 799.81 DECREASED LIBIDO 03/08/2012 SALGUERO DO, PHILIPPE K 799.81 DECREASED LIBIDO 03/08/2012 SALGUERO DO, PHILIPPE K 799.81 DECREASED LIBIDO 03/08/2012 799.81 DECREASED LIBIDO 03/08/2012 799.81 DECREASED LIBIDO 03/08/2012 799.81 DECREASED LIBIDO 03/08/2012 799.81 DECREASED LIBIDO 03/08/2012 799.81 DECREASED LIBIDO 03/08/2012 799.81 DECREASED LIBIDO 03/08/2012 SALGUERO DO, PHILIPPE K 799.81 DECREASED LIBIDO 03/08/2012 799.81 DECREASED LIBIDO 03/08/2012 799.81 DECREASED LIBIDO 03/08/2012 SALGUERO DO, PHILIPPE K 799.81 DECREASED LIBIDO 03/08/2012 SALGUERO DO, PHILIPPE K 799.81 DECREASED LIBIDO 03/08/2012 SALGUERO DO, PHILIPPE K 799.81 DECREASED LIBIDO 03/08/2012 SALGUERO DO, PHILIPPE K 799.81 DECREASED LIBIDO 03/08/2012 SALGUERO DO, PHILIPPE K 799.81 DECREASED LIBIDO 03/08/2012 SALGUERO DO, PHILIPPE K 799.81 DECREASED LIBIDO 03/08/2012 SALGUERO DO, PHILIPPE K 799.81 DECREASED LIBIDO 03/08/2012 SALGUERO DO, PHILIPPE K 799.81 DECREASED LIBIDO 03/08/2012 SALGUERO DO, PHILIPPE K 799.81 DECREASED LIBIDO 03/08/2012 WHITE DDS, DEEDEE J 799.81 DECREASED LIBIDO 03/08/2012 MAEVE NARAYANAN PA-C 799.81 DECREASED LIBIDO 03/08/2012 SALGUERO DO, PHILIPPE K 799.81 DECREASED LIBIDO 03/08/2012 WHITE DDS, DEEDEE J 799.81 DECREASED LIBIDO 03/08/2012 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, BOY J 799.81 DECREASED LIBIDO 03/08/2012 SALGUERO DO, PHILIPPE K 799.81 DECREASED LIBIDO 03/08/2012 SALGUERO DO, PHILIPPE K 799.81 DECREASED LIBIDO 03/08/2012 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, BOY J 799.81 DECREASED LIBIDO 03/08/2012 WHITE DDS, DEEDEE J 799.81 DECREASED LIBIDO 03/08/2012 WHITE DDS, DEEDEE J 799.81 DECREASED LIBIDO 03/08/2012 SALGUERO DO, PHILIPPE K 799.81 DECREASED LIBIDO 03/08/2012 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, BOY J 799.81 DECREASED LIBIDO 03/08/2012 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, BOY J 799.81 DECREASED LIBIDO 03/08/2012 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, BOY J 799.81 DECREASED LIBIDO 03/08/2012 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, BOY J 799.81 DECREASED LIBIDO 03/08/2012 SALGUERO DO, PHILIPPE K 799.81 DECREASED LIBIDO 03/08/2012 SALGUERO DO, PHILIPPE K 799.81 DECREASED LIBIDO 03/08/2012 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, BOY J 799.81 DECREASED LIBIDO 03/08/2012 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, BOY J 799.81 DECREASED LIBIDO 03/08/2012 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, BOY J 799.81 DECREASED LIBIDO 03/08/2012 SALGUERO DO, PHILIPPE K 799.81 DECREASED LIBIDO 03/08/2012 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, BOY J 799.81 DECREASED LIBIDO 03/08/2012 IVET [facility], JACKIE Eastman 799.81 DECREASED LIBIDO 03/08/2012 SALGUERO DO, PHILIPPE K 799.81 DECREASED LIBIDO 03/08/2012 SALGUERO DO, PHILIPPE K 799.81 DECREASED LIBIDO 03/08/2012 CHRIS WINTER APRN 799.81 DECREASED LIBIDO 03/08/2012 SALGUERO DO, PHILIPPE K 799.81 DECREASED LIBIDO 03/08/2012 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, BOY J 799.81 DECREASED LIBIDO 03/08/2012 SALGUERO DO, PHILIPPE K 799.81 DECREASED LIBIDO 04/29/2012 782.0 DISTURBANCE OF SKIN SENSATION 04/29/2012 788.30 URINARY INCONTINENCE UNSPECIFIED 04/29/2012 SALGUERO DO, PHILIPPE K 782.0 DISTURBANCE OF SKIN SENSATION 04/29/2012 SALGUERO DO, PHILIPPE K 788.30 URINARY INCONTINENCE UNSPECIFIED 04/29/2012 SALGUERO DO, PHILIPPE K 782.0 DISTURBANCE OF SKIN SENSATION 04/29/2012 SALGUERO DO, PHILIPPE K 788.30 URINARY INCONTINENCE UNSPECIFIED 04/29/2012 SALGUERO DO, PHILIPPE K 782.0 DISTURBANCE OF SKIN SENSATION 04/29/2012 SALGUERO DO, PHILIPPE K 788.30 URINARY INCONTINENCE UNSPECIFIED 04/29/2012 782.0 DISTURBANCE OF SKIN SENSATION 04/29/2012 788.30 URINARY INCONTINENCE UNSPECIFIED 04/29/2012 782.0 DISTURBANCE OF SKIN SENSATION 04/29/2012 788.30 URINARY INCONTINENCE UNSPECIFIED 04/29/2012 782.0 DISTURBANCE OF SKIN SENSATION 04/29/2012 788.30 URINARY INCONTINENCE UNSPECIFIED 04/29/2012 782.0 DISTURBANCE OF SKIN SENSATION 04/29/2012 788.30 URINARY INCONTINENCE UNSPECIFIED 04/29/2012 782.0 DISTURBANCE OF SKIN SENSATION 04/29/2012 788.30 URINARY INCONTINENCE UNSPECIFIED 04/29/2012 782.0 DISTURBANCE OF SKIN SENSATION 04/29/2012 788.30 URINARY INCONTINENCE UNSPECIFIED 04/29/2012 782.0 DISTURBANCE OF SKIN SENSATION 04/29/2012 788.30 URINARY INCONTINENCE UNSPECIFIED 04/29/2012 782.0 DISTURBANCE OF SKIN SENSATION 04/29/2012 788.30 URINARY INCONTINENCE UNSPECIFIED 04/29/2012 SALGUERO DO, PHILIPPE K 782.0 DISTURBANCE OF SKIN SENSATION 04/29/2012 SALGUERO DO, PHILIPPE K 788.30 URINARY INCONTINENCE UNSPECIFIED 04/29/2012 SALGUERO DO, PHILIPPE K 782.0 DISTURBANCE OF SKIN SENSATION 04/29/2012 SALGUERO DO, PHILIPPE K 788.30 URINARY INCONTINENCE UNSPECIFIED 04/29/2012 SALGUERO DO, PHILIPPE K 782.0 DISTURBANCE OF SKIN SENSATION 04/29/2012 SALGUERO DO, PHILIPPE K 788.30 URINARY INCONTINENCE UNSPECIFIED 04/29/2012 SALGUERO DO, PHILIPPE K 782.0 DISTURBANCE OF SKIN SENSATION 04/29/2012 SALGUERO DO, PHILIPPE K 788.30 URINARY INCONTINENCE UNSPECIFIED 04/29/2012 SALGUERO DO, PHILIPPE K 782.0 DISTURBANCE OF SKIN SENSATION 04/29/2012 SALGUERO DO, PHILIPPE K 788.30 URINARY INCONTINENCE UNSPECIFIED 04/29/2012 SALGUERO DO, PHILIPPE K 782.0 DISTURBANCE OF SKIN SENSATION 04/29/2012 SALGUERO DO, PHILIPPE K 788.30 URINARY INCONTINENCE UNSPECIFIED 04/29/2012 SALGUERO DO, PHILIPPE K 782.0 DISTURBANCE OF SKIN SENSATION 04/29/2012 SALGUERO DO, PHILIPPE K 788.30 URINARY INCONTINENCE UNSPECIFIED 04/29/2012 SALGUERO DO, PHILIPPE K 782.0 DISTURBANCE OF SKIN SENSATION 04/29/2012 SALGUERO DO, PHILIPPE K 788.30 URINARY INCONTINENCE UNSPECIFIED 04/29/2012 SALGUERO DO, PHILIPPE K 782.0 DISTURBANCE OF SKIN SENSATION 04/29/2012 SALGUERO DO, PHILIPPE K 788.30 URINARY INCONTINENCE UNSPECIFIED 04/29/2012 WHITE DDS, DEEDEE J 782.0 DISTURBANCE OF SKIN SENSATION 04/29/2012 WHITE DDS, DEEDEE J 788.30 URINARY INCONTINENCE UNSPECIFIED 04/29/2012 MAEVE NARAYANAN PA-C 782.0 DISTURBANCE OF SKIN SENSATION 04/29/2012 MAEVE NARAYANAN PA-C 788.30 URINARY INCONTINENCE UNSPECIFIED 04/29/2012 SALGUERO DO, PHILIPPE K 782.0 DISTURBANCE OF SKIN SENSATION 04/29/2012 SALGUERO DO, PHILIPPE K 788.30 URINARY INCONTINENCE UNSPECIFIED 04/29/2012 WHITE DDS, DEEDEE J 782.0 DISTURBANCE OF SKIN SENSATION 04/29/2012 WHITE DDS, DEEDEE J 788.30 URINARY INCONTINENCE UNSPECIFIED 04/29/2012 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, BOY J 782.0 DISTURBANCE OF SKIN SENSATION 04/29/2012 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, BOY J 788.30 URINARY INCONTINENCE UNSPECIFIED 04/29/2012 SALGUERO DO, PHILIPPE K 782.0 DISTURBANCE OF SKIN SENSATION 04/29/2012 SALGUERO DO, PHILIPPE K 788.30 URINARY INCONTINENCE UNSPECIFIED 04/29/2012 SALGUERO DO, PHILIPPE K 782.0 DISTURBANCE OF SKIN SENSATION 04/29/2012 SALGUERO DO, PHILIPPE K 788.30 URINARY INCONTINENCE UNSPECIFIED 04/29/2012 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, BOY J 782.0 DISTURBANCE OF SKIN SENSATION 04/29/2012 ASHELY SPANGLERN, BOY J 788.30 URINARY INCONTINENCE UNSPECIFIED 04/29/2012 WHITE DDS, DEEDEE J 782.0 DISTURBANCE OF SKIN SENSATION 04/29/2012 WHITE DDS, DEEDEE J 788.30 URINARY INCONTINENCE UNSPECIFIED 04/29/2012 WHITE DDS, DEEDEE J 782.0 DISTURBANCE OF SKIN SENSATION 04/29/2012 WHITE DDS, DEEDEE J 788.30 URINARY INCONTINENCE UNSPECIFIED 04/29/2012 SALGUERO DO, PHILIPPE K 782.0 DISTURBANCE OF SKIN SENSATION 04/29/2012 SALGUERO DO, PHILIPPE K 788.30 URINARY INCONTINENCE UNSPECIFIED 04/29/2012 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, BOY J 782.0 DISTURBANCE OF SKIN SENSATION 04/29/2012 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, BOY J 788.30 URINARY INCONTINENCE UNSPECIFIED 04/29/2012 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, BOY J 782.0 DISTURBANCE OF SKIN SENSATION 04/29/2012 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, BOY J 788.30 URINARY INCONTINENCE UNSPECIFIED 04/29/2012 ASHELY VASQUES, BOY J 782.0 DISTURBANCE OF SKIN SENSATION 04/29/2012 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, BOY J 788.30 URINARY INCONTINENCE UNSPECIFIED 04/29/2012 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, BOY J 782.0 DISTURBANCE OF SKIN SENSATION 04/29/2012 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, BOY J 788.30 URINARY INCONTINENCE UNSPECIFIED 04/29/2012 SALGUERO DO, PHILIPPE K 782.0 DISTURBANCE OF SKIN SENSATION 04/29/2012 SALGUERO DO, PHILIPPE K 788.30 URINARY INCONTINENCE UNSPECIFIED 04/29/2012 SALGUERO DO, PHILIPPE K 782.0 DISTURBANCE OF SKIN SENSATION 04/29/2012 SALGUERO DO, PHILIPPE K 788.30 URINARY INCONTINENCE UNSPECIFIED 04/29/2012 ASHELY VASQUES, BOY J 782.0 DISTURBANCE OF SKIN SENSATION 04/29/2012 ASHELY VASQUES, BOY J 788.30 URINARY INCONTINENCE UNSPECIFIED 04/29/2012 ASHELY VASQUES, BOY J 782.0 DISTURBANCE OF SKIN SENSATION 04/29/2012 ASHELY VASQUES, BOY J 788.30 URINARY INCONTINENCE UNSPECIFIED 04/29/2012 ASHELY VASQUES, BOY J 782.0 DISTURBANCE OF SKIN SENSATION 04/29/2012 ASHELY SPANGLERN, BOY J 788.30 URINARY INCONTINENCE UNSPECIFIED 04/29/2012 SALGUERO DO, PHILPIPE K 782.0 DISTURBANCE OF SKIN SENSATION 04/29/2012 SALGUERO DO, PHILIPPE K 788.30 URINARY INCONTINENCE UNSPECIFIED 04/29/2012 ASHELY SPANGLERN, BOY J 782.0 DISTURBANCE OF SKIN SENSATION 04/29/2012 ASHELY VASQUES, BOY J 788.30 URINARY INCONTINENCE UNSPECIFIED 04/29/2012 [facility], JACKIE R 782.0 DISTURBANCE OF SKIN SENSATION 04/29/2012 [facility], JACKIE R 788.30 URINARY INCONTINENCE UNSPECIFIED 04/29/2012 SALGUERO DO, PHILIPPE K 782.0 DISTURBANCE OF SKIN SENSATION 04/29/2012 SALGUERO DO, PHILIPPE K 788.30 URINARY INCONTINENCE UNSPECIFIED 04/29/2012 SALGUERO DO, PHILIPPE K 782.0 DISTURBANCE OF SKIN SENSATION 04/29/2012 SALGUERO DO, PHILIPPE K 788.30 URINARY INCONTINENCE UNSPECIFIED 04/29/2012 CHRIS WINTER APRN 782.0 DISTURBANCE OF SKIN SENSATION 04/29/2012 MOY CHRIS VASQUES A 788.30 URINARY INCONTINENCE UNSPECIFIED 04/29/2012 SALGUERO DO, PHILIPPE K 782.0 DISTURBANCE OF SKIN SENSATION 04/29/2012 SALGUERO DO, PHILIPPE K 788.30 URINARY INCONTINENCE UNSPECIFIED 04/29/2012 ASHELY VASQUES BOY J 782.0 DISTURBANCE OF SKIN SENSATION 04/29/2012 ASHELY SPANGLERBOY Curiel 788.30 URINARY INCONTINENCE UNSPECIFIED 04/29/2012 SALGUERO DO, PHILIPPE K 782.0 DISTURBANCE OF SKIN SENSATION 04/29/2012 SALGUERO DO, PHILIPPE K 788.30 URINARY INCONTINENCE UNSPECIFIED 05/27/2012 SALGUERO DO PHILIPPE K 719.47 PAIN IN JOINT INVOLVING ANKLE AND FOOT 05/27/2012 NOEMY DOTANISHAA K 719.47 PAIN IN JOINT INVOLVING ANKLE AND FOOT 05/27/2012 SALGUERO DOTANISHAA K 719.47 PAIN IN JOINT INVOLVING ANKLE AND FOOT 05/27/2012 719.47 PAIN IN JOINT INVOLVING ANKLE AND FOOT 05/27/2012 719.47 PAIN IN JOINT INVOLVING ANKLE AND FOOT 05/27/2012 719.47 PAIN IN JOINT INVOLVING ANKLE AND FOOT 05/27/2012 719.47 PAIN IN JOINT INVOLVING ANKLE AND FOOT 05/27/2012 719.47 PAIN IN JOINT INVOLVING ANKLE AND FOOT 05/27/2012 719.47 PAIN IN JOINT INVOLVING ANKLE AND FOOT 05/27/2012 719.47 PAIN IN JOINT INVOLVING ANKLE AND FOOT 05/27/2012 719.47 PAIN IN JOINT INVOLVING ANKLE AND FOOT 05/27/2012 SALGUERO DOTANISHAA K 719.47 PAIN IN JOINT INVOLVING ANKLE AND FOOT 05/27/2012 SALGUERO DOTANISHAA K 719.47 PAIN IN JOINT INVOLVING ANKLE AND FOOT 05/27/2012 SALGUERO DO PHILIPPE K 719.47 PAIN IN JOINT INVOLVING ANKLE AND FOOT 05/27/2012 SALGUERO DOTANISHAA K 719.47 PAIN IN JOINT INVOLVING ANKLE AND FOOT 05/27/2012 SALGUERO DOTANISHAA K 719.47 PAIN IN JOINT INVOLVING ANKLE AND FOOT 05/27/2012 SALGUERO DO PHILIPPE K 719.47 PAIN IN JOINT INVOLVING ANKLE AND FOOT 05/27/2012 SALGUERO DOTANISHAA K 719.47 PAIN IN JOINT INVOLVING ANKLE AND FOOT 05/27/2012 SALGUERO DO, PHILIPPE K 719.47 PAIN IN JOINT INVOLVING ANKLE AND FOOT 05/27/2012 NOEMY DOTANISHAA Hanna 719.47 PAIN IN JOINT INVOLVING ANKLE AND FOOT 05/27/2012 DEEDEE SHORT DDS 719.47 PAIN IN JOINT INVOLVING ANKLE AND FOOT 05/27/2012 MAEVE NARAYANAN PA-C 719.47 PAIN IN JOINT INVOLVING ANKLE AND FOOT 05/27/2012 PHILIPPE SALGUERO DO 719.47 PAIN IN JOINT INVOLVING ANKLE AND FOOT 05/27/2012 DEEDEE SHORT DDS 719.47 PAIN IN JOINT INVOLVING ANKLE AND FOOT 05/27/2012 BOY LUND APRN 719.47 PAIN IN JOINT INVOLVING ANKLE AND FOOT 05/27/2012 PHILIPPE SALGUERO DO 719.47 PAIN IN JOINT INVOLVING ANKLE AND FOOT 05/27/2012 PHILIPPE SALGUERO DO 719.47 PAIN IN JOINT INVOLVING ANKLE AND FOOT 05/27/2012 BOY LUND APRN 719.47 PAIN IN JOINT INVOLVING ANKLE AND FOOT 05/27/2012 DEEDEE SHORT DDS 719.47 PAIN IN JOINT INVOLVING ANKLE AND FOOT 05/27/2012 DEEDEE SHORT DDS 719.47 PAIN IN JOINT INVOLVING ANKLE AND FOOT 05/27/2012 PHILIPPE SALGUERO DO 719.47 PAIN IN JOINT INVOLVING ANKLE AND FOOT 05/27/2012 BOY LUND APRN 719.47 PAIN IN JOINT INVOLVING ANKLE AND FOOT 05/27/2012 BOY LUND APRN 719.47 PAIN IN JOINT INVOLVING ANKLE AND FOOT 05/27/2012 BOY LUND APRN 719.47 PAIN IN JOINT INVOLVING ANKLE AND FOOT 05/27/2012 BOY LUND APRN 719.47 PAIN IN JOINT INVOLVING ANKLE AND FOOT 05/27/2012 TANISHA SALGUERO DOA Hanna 719.47 PAIN IN JOINT INVOLVING ANKLE AND FOOT 05/27/2012 PHILIPPE SALGUERO DO 719.47 PAIN IN JOINT INVOLVING ANKLE AND FOOT 05/27/2012 BOY LUND APRN 719.47 PAIN IN JOINT INVOLVING ANKLE AND FOOT 05/27/2012 BOY LUND APRN 719.47 PAIN IN JOINT INVOLVING ANKLE AND FOOT 05/27/2012 BOY LUND APRN 719.47 PAIN IN JOINT INVOLVING ANKLE AND FOOT 05/27/2012 PHILIPPE SALGUERO DO 719.47 PAIN IN JOINT INVOLVING ANKLE AND FOOT 05/27/2012 BOY LUND APRN 719.47 PAIN IN JOINT INVOLVING ANKLE AND FOOT 05/27/2012 IVET JACKIE DRAPER 719.47 PAIN IN JOINT INVOLVING ANKLE AND FOOT 05/27/2012 PHILIPPE SALGUERO DO 719.47 PAIN IN JOINT INVOLVING ANKLE AND FOOT 05/27/2012 PHILIPPE SALGUERO DO 719.47 PAIN IN JOINT INVOLVING ANKLE AND FOOT 05/27/2012 CHRIS WINTER APRN 719.47 PAIN IN JOINT INVOLVING ANKLE AND FOOT 05/27/2012 PHILIPPE SALGUERO DO 719.47 PAIN IN JOINT INVOLVING ANKLE AND FOOT 05/27/2012 BOY LUND APRN 719.47 PAIN IN JOINT INVOLVING ANKLE AND FOOT 05/27/2012 PHILIPPE SALGUERO DO 719.47 PAIN IN JOINT INVOLVING ANKLE AND FOOT 07/04/2012 PHILIPPE SALGUERO DO 354.0 CARPAL TUNNEL SYNDROME 07/04/2012 PHILIPPE SALGUERO DO 368.8 blurry vision 07/04/2012 PHILIPPE SALGUERO DO 719.40 ARTHRALGIA 07/04/2012 PHILIPPE SALGUERO DO 354.0 CARPAL TUNNEL SYNDROME 07/04/2012 PHILIPPE SALGUERO DO 368.8 blurry vision 07/04/2012 PHILIPPE SALGUERO DO 719.40 ARTHRALGIA 07/04/2012 354.0 CARPAL TUNNEL SYNDROME 07/04/2012 368.8 blurry vision 07/04/2012 719.40 ARTHRALGIA 07/04/2012 354.0 CARPAL TUNNEL SYNDROME 07/04/2012 368.8 blurry vision 07/04/2012 719.40 ARTHRALGIA 07/04/2012 354.0 CARPAL TUNNEL SYNDROME 07/04/2012 368.8 blurry vision 07/04/2012 719.40 ARTHRALGIA 07/04/2012 354.0 CARPAL TUNNEL SYNDROME 07/04/2012 368.8 blurry vision 07/04/2012 719.40 ARTHRALGIA 07/04/2012 354.0 CARPAL TUNNEL SYNDROME 07/04/2012 368.8 BLURRY VISION 07/04/2012 719.40 ARTHRALGIA 07/04/2012 354.0 CARPAL TUNNEL SYNDROME 07/04/2012 368.8 BLURRY VISION 07/04/2012 719.40 ARTHRALGIA 07/04/2012 354.0 CARPAL TUNNEL SYNDROME 07/04/2012 368.8 BLURRY VISION 07/04/2012 719.40 ARTHRALGIA 07/04/2012 354.0 CARPAL TUNNEL SYNDROME 07/04/2012 368.8 BLURRY VISION 07/04/2012 719.40 ARTHRALGIA 07/04/2012 SALGUERO DO, PHILIPPE K 354.0 CARPAL TUNNEL SYNDROME 07/04/2012 SALGUERO DO, PHILIPPE K 368.8 BLURRY VISION 07/04/2012 SALGUERO DO, PHILIPPE K 719.40 ARTHRALGIA 07/04/2012 SALGUERO DO, PHILIPPE K 354.0 CARPAL TUNNEL SYNDROME 07/04/2012 SALGUERO DO, PHILIPPE K 368.8 BLURRY VISION 07/04/2012 SALGUERO DO, PHILIPPE K 719.40 ARTHRALGIA 07/04/2012 SALGUERO DO, PHILIPPE K 354.0 CARPAL TUNNEL SYNDROME 07/04/2012 SALGUERO DO, PHILIPPE K 368.8 BLURRY VISION 07/04/2012 SALGUERO DO, PHILIPPE K 719.40 ARTHRALGIA 07/04/2012 SALGUERO DO, PHILIPPE K 354.0 CARPAL TUNNEL SYNDROME 07/04/2012 SALGUERO DO, PHILIPPE K 368.8 BLURRY VISION 07/04/2012 SALGUERO DO, PHILIPPE K 719.40 ARTHRALGIA 07/04/2012 SALGUERO DO, PHILIPPE K 354.0 CARPAL TUNNEL SYNDROME 07/04/2012 SALGUERO DO, PHILIPPE K 368.8 BLURRY VISION 07/04/2012 SALGUERO DO, PHILIPPE K 719.40 ARTHRALGIA 07/04/2012 SALGUERO DO, PHILIPPE K 354.0 CARPAL TUNNEL SYNDROME 07/04/2012 SALGUERO DO, PHILIPPE K 368.8 BLURRY VISION 07/04/2012 SALGUERO DO, PHILIPPE K 719.40 ARTHRALGIA 07/04/2012 SALGUERO DO, PHILIPPE K 354.0 CARPAL TUNNEL SYNDROME 07/04/2012 SALGUERO DO, PHILIPPE K 368.8 BLURRY VISION 07/04/2012 SALGUERO DO, PHILIPPE K 719.40 ARTHRALGIA 07/04/2012 SALGUERO DO, PHILIPPE K 354.0 CARPAL TUNNEL SYNDROME 07/04/2012 SALGUERO DO, PHILIPPE K 368.8 BLURRY VISION 07/04/2012 SALGUERO DO, PHILIPPE K 719.40 ARTHRALGIA 07/04/2012 SALGUERO DO, PHILIPPE K 354.0 CARPAL TUNNEL SYNDROME 07/04/2012 SALGUERO DO, PHILIPPE K 368.8 BLURRY VISION 07/04/2012 SALGUERO DO, PHILIPPE K 719.40 ARTHRALGIA 07/04/2012 WHITE DDS, DEEDEE J 354.0 CARPAL TUNNEL SYNDROME 07/04/2012 WHITE DDS, DEEDEE J 368.8 BLURRY VISION 07/04/2012 WHITE DDS, DEEDEE J 719.40 ARTHRALGIA 07/04/2012 MAEVE NARAYANAN PA-C 354.0 CARPAL TUNNEL SYNDROME 07/04/2012 MAEVE NARAYANAN PA-C 368.8 BLURRY VISION 07/04/2012 MAEVE NARAYANAN PA-C 719.40 ARTHRALGIA 07/04/2012 SALGUERO DO PHILIPPE K 354.0 CARPAL TUNNEL SYNDROME 07/04/2012 SALGUERO DO PHILIPPE K 368.8 BLURRY VISION 07/04/2012 SALGUERO DO PHILIPPE K 719.40 ARTHRALGIA 07/04/2012 WHITE DDS, DEEDEE J 354.0 CARPAL TUNNEL SYNDROME 07/04/2012 WHITE DDS, DEEDEE J 368.8 BLURRY VISION 07/04/2012 WHITE DDS, DEEDEE J 719.40 ARTHRALGIA 07/04/2012 BOY LUND APRN J 354.0 CARPAL TUNNEL SYNDROME 07/04/2012 BOY LUND APRN J 368.8 BLURRY VISION 07/04/2012 BOY LUND APRN 719.40 ARTHRALGIA 07/04/2012 SALGUERO DO PHILIPPE K 354.0 CARPAL TUNNEL SYNDROME 07/04/2012 SALGUERO DO, PHILIPPE K 368.8 BLURRY VISION 07/04/2012 SALGUERO DO, PHILIPPE K 719.40 ARTHRALGIA 07/04/2012 SALGUERO DO, PHILIPPE K 354.0 CARPAL TUNNEL SYNDROME 07/04/2012 SALGUERO DO, PHILIPPE K 368.8 BLURRY VISION 07/04/2012 SALGUERO DO, PHILIPPE K 719.40 ARTHRALGIA 07/04/2012 ASHELY VASQUES BOY J 354.0 CARPAL TUNNEL SYNDROME 07/04/2012 ASHELY VASQUES BOY J 368.8 BLURRY VISION 07/04/2012 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, BOY J 719.40 ARTHRALGIA 07/04/2012 WHITE DDS, DEEDEE J 354.0 CARPAL TUNNEL SYNDROME 07/04/2012 WHITE DDS, DEEDEE J 368.8 BLURRY VISION 07/04/2012 WHITE DDS, DEEDEE J 719.40 ARTHRALGIA 07/04/2012 WHITE DDS, DEEDEE J 354.0 CARPAL TUNNEL SYNDROME 07/04/2012 WHITE DDS, DEEDEE J 368.8 BLURRY VISION 07/04/2012 WHITE DDS, DEEDEE J 719.40 ARTHRALGIA 07/04/2012 SALGUERO DO, PHILIPPE K 354.0 CARPAL TUNNEL SYNDROME 07/04/2012 SALGUERO DO, PHILIPPE K 368.8 BLURRY VISION 07/04/2012 SALGUERO DO, PHILIPPE K 719.40 ARTHRALGIA 07/04/2012 ASHELY SPANGLERNJUAREZA J 354.0 CARPAL TUNNEL SYNDROME 07/04/2012 JUAREZ LUND APRNA J 368.8 BLURRY VISION 07/04/2012 JUAREZ LUND APRNA J 719.40 ARTHRALGIA 07/04/2012 ASHELY SPANGLERN BOY J 354.0 CARPAL TUNNEL SYNDROME 07/04/2012 ASHELY VASQUES BOY J 368.8 BLURRY VISION 07/04/2012 ASHELY VASQUES, BOY J 719.40 ARTHRALGIA 07/04/2012 ASHELY VASQUES BOY J 354.0 CARPAL TUNNEL SYNDROME 07/04/2012 ASHELY VASQUES BOY J 368.8 BLURRY VISION 07/04/2012 ASHELY VASQUES BOY J 719.40 ARTHRALGIA 07/04/2012 ASHELY VASQUES BOY J 354.0 CARPAL TUNNEL SYNDROME 07/04/2012 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, BOY J 368.8 BLURRY VISION 07/04/2012 ASHELY VASQUES, BOY J 719.40 ARTHRALGIA 07/04/2012 SALGUERO DO, PHILIPPE K 354.0 CARPAL TUNNEL SYNDROME 07/04/2012 SALGUERO DO, PHILIPPE K 368.8 BLURRY VISION 07/04/2012 SALGUERO DO, PHILIPPE K 719.40 ARTHRALGIA 07/04/2012 SALGUERO DO, PHILIPPE K 354.0 CARPAL TUNNEL SYNDROME 07/04/2012 SALGUERO DO, PHILIPPE K 368.8 BLURRY VISION 07/04/2012 SALGUERO DO PHILIPPE K 719.40 ARTHRALGIA 07/04/2012 JUAREZ LUND APRNA J 354.0 CARPAL TUNNEL SYNDROME 07/04/2012 JUAREZ LUND APRNA J 368.8 BLURRY VISION 07/04/2012 ASHELY VASQUES BOY J 719.40 ARTHRALGIA 07/04/2012 JUAREZ LUND APRNA J 354.0 CARPAL TUNNEL SYNDROME 07/04/2012 JUAREZ LUND APRNA J 368.8 BLURRY VISION 07/04/2012 ASHELY VASQUES BOY J 719.40 ARTHRALGIA 07/04/2012 JUAREZ LUND APRNA J 354.0 CARPAL TUNNEL SYNDROME 07/04/2012 JUAREZ LUND APRNA J 368.8 BLURRY VISION 07/04/2012 BECKY LUND APRNINDA J 719.40 ARTHRALGIA 07/04/2012 SALGUERO DO PHILIPPE K 354.0 CARPAL TUNNEL SYNDROME 07/04/2012 NOEMY OLVERA PHILIPPE K 368.8 BLURRY VISION 07/04/2012 NOEMY OLVERA PHILIPPE K 719.40 ARTHRALGIA 07/04/2012 BECKY LUND APRNINDA J 354.0 CARPAL TUNNEL SYNDROME 07/04/2012 JUAREZ LUND APRNA J 368.8 BLURRY VISION 07/04/2012 BECKY LUND APRNINDA J 719.40 ARTHRALGIA 07/04/2012 [facility], JACKIE R 354.0 CARPAL TUNNEL SYNDROME 07/04/2012 [facility], JACKIE R 368.8 BLURRY VISION 07/04/2012 [facility], JACKIE R 719.40 ARTHRALGIA 07/04/2012 SALGUERO DO, PHILIPPE K 354.0 CARPAL TUNNEL SYNDROME 07/04/2012 SALGUERO DO, PHILIPPE K 368.8 BLURRY VISION 07/04/2012 SALGUERO DO, PHILIPPE K 719.40 ARTHRALGIA 07/04/2012 SALGUERO DO PHILIPPE K 354.0 CARPAL TUNNEL SYNDROME 07/04/2012 SALGUERO DO, PHILIPPE K 368.8 BLURRY VISION 07/04/2012 SALGUERO DO, PHILIPPE K 719.40 ARTHRALGIA 07/04/2012 CHRIS WINTER APRN 354.0 CARPAL TUNNEL SYNDROME 07/04/2012 MOY GROCERY DELIVERER, CHRIS A 368.8 BLURRY VISION 07/04/2012 MOY GROCERY DELIVERER, CHRIS A 719.40 ARTHRALGIA 07/04/2012 SALGUERO DO, PHILIPPE K 354.0 CARPAL TUNNEL SYNDROME 07/04/2012 SALGUERO DO, PHILIPPE K 368.8 BLURRY VISION 07/04/2012 SALGUERO DO, PHILIPPE K 719.40 ARTHRALGIA 07/04/2012 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, BOY J 354.0 CARPAL TUNNEL SYNDROME 07/04/2012 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, BOY J 368.8 BLURRY VISION 07/04/2012 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, BOY J 719.40 ARTHRALGIA 07/04/2012 SALGUERO DO, PHILIPPE K 354.0 CARPAL TUNNEL SYNDROME 07/04/2012 SALGUERO DO, PHILIPPE K 368.8 BLURRY VISION 07/04/2012 SALGUERO DO, PHILIPPE K 719.40 ARTHRALGIA 09/07/2012 682.9 CELLULITIS AND ABSCESS OF UNSPECIFIED SITES 09/07/2012 682.9 CELLULITIS AND ABSCESS OF UNSPECIFIED SITES 09/07/2012 682.9 CELLULITIS AND ABSCESS OF UNSPECIFIED SITES 09/07/2012 682.9 CELLULITIS AND ABSCESS OF UNSPECIFIED SITES 09/07/2012 682.9 CELLULITIS AND ABSCESS OF UNSPECIFIED SITES 09/07/2012 682.9 CELLULITIS AND ABSCESS OF UNSPECIFIED SITES 09/07/2012 SALGUERO DO, PHILIPPE K 682.9 CELLULITIS AND ABSCESS OF UNSPECIFIED SITES 09/07/2012 SALGUERO DO, PHILIPPE K 682.9 CELLULITIS AND ABSCESS OF UNSPECIFIED SITES 09/07/2012 SALGUERO DO, PHILIPPE K 682.9 CELLULITIS AND ABSCESS OF UNSPECIFIED SITES 09/07/2012 SALGUERO DO, PHILIPPE K 682.9 CELLULITIS AND ABSCESS OF UNSPECIFIED SITES 09/07/2012 SALGUERO DO, PHILIPPE K 682.9 CELLULITIS AND ABSCESS OF UNSPECIFIED SITES 09/07/2012 SALGUERO DO, PHILIPPE K 682.9 CELLULITIS AND ABSCESS OF UNSPECIFIED SITES 09/07/2012 SALGUERO DO, PHILIPPE K 682.9 CELLULITIS AND ABSCESS OF UNSPECIFIED SITES 09/07/2012 SALGUERO DO, PHILIPPE K 682.9 CELLULITIS AND ABSCESS OF UNSPECIFIED SITES 09/07/2012 SALGUERO DO, PHILIPPE K 682.9 CELLULITIS AND ABSCESS OF UNSPECIFIED SITES 09/07/2012 WHITE DDS, DEEDEE J 682.9 CELLULITIS AND ABSCESS OF UNSPECIFIED SITES 09/07/2012 MAEVE NARAYANAN PA-C 682.9 CELLULITIS AND ABSCESS OF UNSPECIFIED SITES 09/07/2012 SALGUERO DO, PHILIPPE K 682.9 CELLULITIS AND ABSCESS OF UNSPECIFIED SITES 09/07/2012 WHITE DDS, DEEDEE J 682.9 CELLULITIS AND ABSCESS OF UNSPECIFIED SITES 09/07/2012 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, BOY J 682.9 CELLULITIS AND ABSCESS OF UNSPECIFIED SITES 09/07/2012 SALGUERO DO, PHILIPPE K 682.9 CELLULITIS AND ABSCESS OF UNSPECIFIED SITES 09/07/2012 SALGUERO DO, PHILIPPE K 682.9 CELLULITIS AND ABSCESS OF UNSPECIFIED SITES 09/07/2012 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, BOY J 682.9 CELLULITIS AND ABSCESS OF UNSPECIFIED SITES 09/07/2012 WHITE DDS, DEEDEE J 682.9 CELLULITIS AND ABSCESS OF UNSPECIFIED SITES 09/07/2012 WHITE DDS, DEEDEE J 682.9 CELLULITIS AND ABSCESS OF UNSPECIFIED SITES 09/07/2012 SALGUERO DO, PHILIPPE K 682.9 CELLULITIS AND ABSCESS OF UNSPECIFIED SITES 09/07/2012 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, BOY J 682.9 CELLULITIS AND ABSCESS OF UNSPECIFIED SITES 09/07/2012 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, BOY J 682.9 CELLULITIS AND ABSCESS OF UNSPECIFIED SITES 09/07/2012 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, BOY J 682.9 CELLULITIS AND ABSCESS OF UNSPECIFIED SITES 09/07/2012 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, BOY J 682.9 CELLULITIS AND ABSCESS OF UNSPECIFIED SITES 09/07/2012 SALGUERO DO, PHILIPPE K 682.9 CELLULITIS AND ABSCESS OF UNSPECIFIED SITES 09/07/2012 SALGUERO DO, PHILIPPE K 682.9 CELLULITIS AND ABSCESS OF UNSPECIFIED SITES 09/07/2012 ASHELY GROCERY DELIVERER, BOY J 682.9 CELLULITIS AND ABSCESS OF UNSPECIFIED SITES 09/07/2012 ASHELY GROCERY DELIVERER, BOY J 682.9 CELLULITIS AND ABSCESS OF UNSPECIFIED SITES 09/07/2012 ASHELY GROCERY DELIVERER, BOY J 682.9 CELLULITIS AND ABSCESS OF UNSPECIFIED SITES 09/07/2012 SALGUERO DO, PHILIPPE K 682.9 CELLULITIS AND ABSCESS OF UNSPECIFIED SITES 09/07/2012 BOY LUND APRN 682.9 CELLULITIS AND ABSCESS OF UNSPECIFIED SITES 09/07/2012 IVET [facility], JACKIE Eastman 682.9 CELLULITIS AND ABSCESS OF UNSPECIFIED SITES 09/07/2012 SALGUERO DOTANISHAA K 682.9 CELLULITIS AND ABSCESS OF UNSPECIFIED SITES 09/07/2012 SALGUERO TANISHA OLVERAA K 682.9 CELLULITIS AND ABSCESS OF UNSPECIFIED SITES 09/07/2012 CHRIS WINTER APRN 682.9 CELLULITIS AND ABSCESS OF UNSPECIFIED SITES 09/07/2012 SALGUERO DOTANISHAA K 682.9 CELLULITIS AND ABSCESS OF UNSPECIFIED SITES 09/07/2012 BOY LUND APRN 682.9 CELLULITIS AND ABSCESS OF UNSPECIFIED SITES 09/07/2012 SALGUERO TANISHA OLVERAA K 682.9 CELLULITIS AND ABSCESS OF UNSPECIFIED SITES 10/06/2012 692.71 SUNBURN 10/06/2012 709.2 SCAR CONDITIONS AND FIBROSIS OF SKIN 10/06/2012 692.71 SUNBURN 10/06/2012 709.2 SCAR CONDITIONS AND FIBROSIS OF SKIN 10/06/2012 692.71 SUNBURN 10/06/2012 709.2 SCAR CONDITIONS AND FIBROSIS OF SKIN 10/06/2012 692.71 SUNBURN 10/06/2012 709.2 SCAR CONDITIONS AND FIBROSIS OF SKIN 10/06/2012 692.71 SUNBURN 10/06/2012 709.2 SCAR CONDITIONS AND FIBROSIS OF SKIN 10/06/2012 TANISHA SALGUERO DOA K 692.71 SUNBURN 10/06/2012 TANISHA SALGUERO DOA K 709.2 SCAR CONDITIONS AND FIBROSIS OF SKIN 10/06/2012 SALGUERO DO PHILIPPE K 692.71 SUNBURN 10/06/2012 SALGUERO TANISHA OLVERAA K 709.2 SCAR CONDITIONS AND FIBROSIS OF SKIN 10/06/2012 TANISHA SALGUERO DOA K 692.71 SUNBURN 10/06/2012 SALGUERO DO PHILIPPE K 709.2 SCAR CONDITIONS AND FIBROSIS OF SKIN 10/06/2012 SALGUERO DO PHILIPPE K 692.71 SUNBURN 10/06/2012 TANISHA SALGUERO DOA K 709.2 SCAR CONDITIONS AND FIBROSIS OF SKIN 10/06/2012 NOEMY OLVERA PHILIPPE K 692.71 SUNBURN 10/06/2012 TANISHA SALGUERO DOA K 709.2 SCAR CONDITIONS AND FIBROSIS OF SKIN 10/06/2012 SALGUERO DO PHILIPPE K 692.71 SUNBURN 10/06/2012 SALGUERO DOTANISHAA K 709.2 SCAR CONDITIONS AND FIBROSIS OF SKIN 10/06/2012 SALGUERO DOTANISHAA K 692.71 SUNBURN 10/06/2012 SALGUERO TANISHA OLVERAA K 709.2 SCAR CONDITIONS AND FIBROSIS OF SKIN 10/06/2012 SALGUERO DOTANISHAA K 692.71 SUNBURN 10/06/2012 SALGUERO DOTANISHAA K 709.2 SCAR CONDITIONS AND FIBROSIS OF SKIN 10/06/2012 SALGUERO DOTANISHAA K 692.71 SUNBURN 10/06/2012 SALGUERO TANISHA OLVERAA K 709.2 SCAR CONDITIONS AND FIBROSIS OF SKIN 10/06/2012 WHITE DDS, DEEDEE J 692.71 SUNBURN 10/06/2012 WHITE DDS, DEEDEE J 709.2 SCAR CONDITIONS AND FIBROSIS OF SKIN 10/06/2012 MAEVE NARAYANAN PA-C 692.71 SUNBURN 10/06/2012 MAEVE NARAYANAN PA-C 709.2 SCAR CONDITIONS AND FIBROSIS OF SKIN 10/06/2012 SALGUERO TANISHA OLVERAA K 692.71 SUNBURN 10/06/2012 TANISHA SALGUERO DOA K 709.2 SCAR CONDITIONS AND FIBROSIS OF SKIN 10/06/2012 WHITE DDS, DEEDEE J 692.71 SUNBURN 10/06/2012 WHITE DDS, DEEDEE J 709.2 SCAR CONDITIONS AND FIBROSIS OF SKIN 10/06/2012 ASHELY VASQUES, BOY J 692.71 SUNBURN 10/06/2012 ASHELY SPANGLERN, BOY J 709.2 SCAR CONDITIONS AND FIBROSIS OF SKIN 10/06/2012 SALGUERO TANISHA OLVERAA K 692.71 SUNBURN 10/06/2012 TANISHA SALGUERO DOA K 709.2 SCAR CONDITIONS AND FIBROSIS OF SKIN 10/06/2012 SALGUERO TANISHA OLVERAA K 692.71 SUNBURN 10/06/2012 SALGUERO TANISHA OLVERAA K 709.2 SCAR CONDITIONS AND FIBROSIS OF SKIN 10/06/2012 ASHELY VASQUES, BOY J 692.71 SUNBURN 10/06/2012 ASHELY VASQUES, BOY J 709.2 SCAR CONDITIONS AND FIBROSIS OF SKIN 10/06/2012 WHITE DDS, DEEDEE J 692.71 SUNBURN 10/06/2012 WHITE DDS, DEEDEE J 709.2 SCAR CONDITIONS AND FIBROSIS OF SKIN 10/06/2012 WHITE DDS, DEEDEE J 692.71 SUNBURN 10/06/2012 WHITE DDS, DEEDEE J 709.2 SCAR CONDITIONS AND FIBROSIS OF SKIN 10/06/2012 PHILIPPE SALGUERO DO K 692.71 SUNBURN 10/06/2012 PHILIPPE SALGUERO DO K 709.2 SCAR CONDITIONS AND FIBROSIS OF SKIN 10/06/2012 ASHELY GROCERY DELIVERER, BOY J 692.71 SUNBURN 10/06/2012 ASHELY GROCERY DELIVERER, BOY J 709.2 SCAR CONDITIONS AND FIBROSIS OF SKIN 10/06/2012 ASHELY GROCERY DELIVERER, BOY J 692.71 SUNBURN 10/06/2012 ASHELY GROCERY DELIVERER, BOY J 709.2 SCAR CONDITIONS AND FIBROSIS OF SKIN 10/06/2012 ASHELY VASQUES, BOY J 692.71 SUNBURN 10/06/2012 ASHELY VASQUES, BOY J 709.2 SCAR CONDITIONS AND FIBROSIS OF SKIN 10/06/2012 ASHELY GROCERY DELIVERER, BOY J 692.71 SUNBURN 10/06/2012 ASHELY GROCERY DELIVERER, BOY J 709.2 SCAR CONDITIONS AND FIBROSIS OF SKIN 10/06/2012 PHILIPPE SALGUERO DO K 692.71 SUNBURN 10/06/2012 PHILIPPE SALGUERO DO K 709.2 SCAR CONDITIONS AND FIBROSIS OF SKIN 10/06/2012 PHILIPPE SALGUERO DO K 692.71 SUNBURN 10/06/2012 PHILIPPE SALGUERO DO K 709.2 SCAR CONDITIONS AND FIBROSIS OF SKIN 10/06/2012 ASHELY GROCERY DELIVERER, BOY J 692.71 SUNBURN 10/06/2012 ASHELY GROCERY DELIVERER, BOY J 709.2 SCAR CONDITIONS AND FIBROSIS OF SKIN 10/06/2012 ASHELY GROCERY DELIVERER, BOY J 692.71 SUNBURN 10/06/2012 ASHELY GROCERY DELIVERER, BOY J 709.2 SCAR CONDITIONS AND FIBROSIS OF SKIN 10/06/2012 ASHELY GROCERY DELIVERER, BOY J 692.71 SUNBURN 10/06/2012 ASHELY VASQUES, BOY J 709.2 SCAR CONDITIONS AND FIBROSIS OF SKIN 10/06/2012 TANISHA SALGUERO DOA K 692.71 SUNBURN 10/06/2012 TANISHA SALGUERO DOA K 709.2 SCAR CONDITIONS AND FIBROSIS OF SKIN 10/06/2012 ASHELY VASQUES, BOY J 692.71 SUNBURN 10/06/2012 ASHELY VASQUES, BOY J 709.2 SCAR CONDITIONS AND FIBROSIS OF SKIN 10/06/2012 IVET [facility], JACKIE R 692.71 SUNBURN 10/06/2012 [facility], JACKIE R 709.2 SCAR CONDITIONS AND FIBROSIS OF SKIN 10/06/2012 TANISHA SALGUERO DOA K 692.71 SUNBURN 10/06/2012 TANISHA SALGUERO DOA K 709.2 SCAR CONDITIONS AND FIBROSIS OF SKIN 10/06/2012 TANISHA SALGUERO DOA K 692.71 SUNBURN 10/06/2012 PHILIPPE SALGUERO DO K 709.2 SCAR CONDITIONS AND FIBROSIS OF SKIN 10/06/2012 MOY VASQUES, CHRIS A 692.71 SUNBURN 10/06/2012 MOY VASQUES, CHRIS A 709.2 SCAR CONDITIONS AND FIBROSIS OF SKIN 10/06/2012 TANISHA SALGUERO DOA K 692.71 SUNBURN 10/06/2012 TANISHA SALGUERO DOA K 709.2 SCAR CONDITIONS AND FIBROSIS OF SKIN 10/06/2012 ASHELY VASQUES, BOY J 692.71 SUNBURN 10/06/2012 BOY LUND APRN J 709.2 SCAR CONDITIONS AND FIBROSIS OF SKIN 10/06/2012 TANISHA SALGUERO DOA K 692.71 SUNBURN 10/06/2012 PHILIPPE SALGUERO DO K 709.2 SCAR CONDITIONS AND FIBROSIS OF SKIN 12/08/2012 626.9 UNSPECIFIED DISORDERS OF MENSTRUATION AND OTHER ABNORMAL BLEEDING FROM FEMALE GENITAL TRACT 12/08/2012 626.9 UNSPECIFIED DISORDERS OF MENSTRUATION AND OTHER ABNORMAL BLEEDING FROM FEMALE GENITAL TRACT 12/08/2012 PHILIPPE SALGUERO DO 626.9 UNSPECIFIED DISORDERS OF MENSTRUATION AND OTHER ABNORMAL BLEEDING FROM FEMALE GENITAL TRACT 12/08/2012 PHILIPPE SALGUERO DO K 626.9 UNSPECIFIED DISORDERS OF MENSTRUATION AND OTHER ABNORMAL BLEEDING FROM FEMALE GENITAL TRACT 12/08/2012 PHILIPPE SALGUERO DO K 626.9 UNSPECIFIED DISORDERS OF MENSTRUATION AND OTHER ABNORMAL BLEEDING FROM FEMALE GENITAL TRACT 12/08/2012 PHILIPPE SALGUERO DO K 626.9 UNSPECIFIED DISORDERS OF MENSTRUATION AND OTHER ABNORMAL BLEEDING FROM FEMALE GENITAL TRACT 12/08/2012 SALGUERO DO PHILIPPE K 626.9 UNSPECIFIED DISORDERS OF MENSTRUATION AND OTHER ABNORMAL BLEEDING FROM FEMALE GENITAL TRACT 12/08/2012 SALGUERO DO PHILIPPE K 626.9 UNSPECIFIED DISORDERS OF MENSTRUATION AND OTHER ABNORMAL BLEEDING FROM FEMALE GENITAL TRACT 12/08/2012 SALGUERO DO PHILIPPE K 626.9 UNSPECIFIED DISORDERS OF MENSTRUATION AND OTHER ABNORMAL BLEEDING FROM FEMALE GENITAL TRACT 12/08/2012 SALGUERO DO PHILIPPE K 626.9 UNSPECIFIED DISORDERS OF MENSTRUATION AND OTHER ABNORMAL BLEEDING FROM FEMALE GENITAL TRACT 12/08/2012 SALGUERO DO PHILIPPE K 626.9 UNSPECIFIED DISORDERS OF MENSTRUATION AND OTHER ABNORMAL BLEEDING FROM FEMALE GENITAL TRACT 12/08/2012 DEEDEE SHORT DDS J 626.9 UNSPECIFIED DISORDERS OF MENSTRUATION AND OTHER ABNORMAL BLEEDING FROM FEMALE GENITAL TRACT 12/08/2012 MAEVE NARAYANAN PA-C 626.9 UNSPECIFIED DISORDERS OF MENSTRUATION AND OTHER ABNORMAL BLEEDING FROM FEMALE GENITAL TRACT 12/08/2012 TANISHA SALGUERO DOA K 626.9 UNSPECIFIED DISORDERS OF MENSTRUATION AND OTHER ABNORMAL BLEEDING FROM FEMALE GENITAL TRACT 12/08/2012 DEEDEE SHORT DDS J 626.9 UNSPECIFIED DISORDERS OF MENSTRUATION AND OTHER ABNORMAL BLEEDING FROM FEMALE GENITAL TRACT 12/08/2012 BOY LUND APRN J 626.9 UNSPECIFIED DISORDERS OF MENSTRUATION AND OTHER ABNORMAL BLEEDING FROM FEMALE GENITAL TRACT 12/08/2012 TANISHA SALGUERO DOA K 626.9 UNSPECIFIED DISORDERS OF MENSTRUATION AND OTHER ABNORMAL BLEEDING FROM FEMALE GENITAL TRACT 12/08/2012 TANISHA SALGUERO DOA K 626.9 UNSPECIFIED DISORDERS OF MENSTRUATION AND OTHER ABNORMAL BLEEDING FROM FEMALE GENITAL TRACT 12/08/2012 ASHELY VASQUES, BOY J 626.9 UNSPECIFIED DISORDERS OF MENSTRUATION AND OTHER ABNORMAL BLEEDING FROM FEMALE GENITAL TRACT 12/08/2012 DEEDEE SHORT DDS J 626.9 UNSPECIFIED DISORDERS OF MENSTRUATION AND OTHER ABNORMAL BLEEDING FROM FEMALE GENITAL TRACT 12/08/2012 DEEDEE SHORT DDS J 626.9 UNSPECIFIED DISORDERS OF MENSTRUATION AND OTHER ABNORMAL BLEEDING FROM FEMALE GENITAL TRACT 12/08/2012 TANISHA SALGUERO DOA K 626.9 UNSPECIFIED DISORDERS OF MENSTRUATION AND OTHER ABNORMAL BLEEDING FROM FEMALE GENITAL TRACT 12/08/2012 JUAREZ LUND APRNA J 626.9 UNSPECIFIED DISORDERS OF MENSTRUATION AND OTHER ABNORMAL BLEEDING FROM FEMALE GENITAL TRACT 12/08/2012 BOY LUND APRN 626.9 UNSPECIFIED DISORDERS OF MENSTRUATION AND OTHER ABNORMAL BLEEDING FROM FEMALE GENITAL TRACT 12/08/2012 BOY LUND APRN 626.9 UNSPECIFIED DISORDERS OF MENSTRUATION AND OTHER ABNORMAL BLEEDING FROM FEMALE GENITAL TRACT 12/08/2012 BOY LUND APRN 626.9 UNSPECIFIED DISORDERS OF MENSTRUATION AND OTHER ABNORMAL BLEEDING FROM FEMALE GENITAL TRACT 12/08/2012 PHILIPPE SALGUERO DO 626.9 UNSPECIFIED DISORDERS OF MENSTRUATION AND OTHER ABNORMAL BLEEDING FROM FEMALE GENITAL TRACT 12/08/2012 PHILIPPE SALUGERO DO 626.9 UNSPECIFIED DISORDERS OF MENSTRUATION AND OTHER ABNORMAL BLEEDING FROM FEMALE GENITAL TRACT 12/08/2012 BOY LUND APRN 626.9 UNSPECIFIED DISORDERS OF MENSTRUATION AND OTHER ABNORMAL BLEEDING FROM FEMALE GENITAL TRACT 12/08/2012 BOY LUND APRN 626.9 UNSPECIFIED DISORDERS OF MENSTRUATION AND OTHER ABNORMAL BLEEDING FROM FEMALE GENITAL TRACT 12/08/2012 BOY LUND APRN 626.9 UNSPECIFIED DISORDERS OF MENSTRUATION AND OTHER ABNORMAL BLEEDING FROM FEMALE GENITAL TRACT 12/08/2012 PHILIPPE SALGUERO DO K 626.9 UNSPECIFIED DISORDERS OF MENSTRUATION AND OTHER ABNORMAL BLEEDING FROM FEMALE GENITAL TRACT 12/08/2012 BOY LUND APRN 626.9 UNSPECIFIED DISORDERS OF MENSTRUATION AND OTHER ABNORMAL BLEEDING FROM FEMALE GENITAL TRACT 12/08/2012 IVET [facility], [place] R 626.9 UNSPECIFIED DISORDERS OF MENSTRUATION AND OTHER ABNORMAL BLEEDING FROM FEMALE GENITAL TRACT 12/08/2012 PHILIPPE SALGUERO DO K 626.9 UNSPECIFIED DISORDERS OF MENSTRUATION AND OTHER ABNORMAL BLEEDING FROM FEMALE GENITAL TRACT 12/08/2012 TANISHA SALGUERO DOA K 626.9 UNSPECIFIED DISORDERS OF MENSTRUATION AND OTHER ABNORMAL BLEEDING FROM FEMALE GENITAL TRACT 12/08/2012 CHRIS WINTER APRN 626.9 UNSPECIFIED DISORDERS OF MENSTRUATION AND OTHER ABNORMAL BLEEDING FROM FEMALE GENITAL TRACT 12/08/2012 TANISHA SALGUERO DOA K 626.9 UNSPECIFIED DISORDERS OF MENSTRUATION AND OTHER ABNORMAL BLEEDING FROM FEMALE GENITAL TRACT 12/08/2012 BOY LUND APRN 626.9 UNSPECIFIED DISORDERS OF MENSTRUATION AND OTHER ABNORMAL BLEEDING FROM FEMALE GENITAL TRACT 12/08/2012 SALGUERO DO, PHILIPPE K 626.9 UNSPECIFIED DISORDERS OF MENSTRUATION AND OTHER ABNORMAL BLEEDING FROM FEMALE GENITAL TRACT 01/11/2013 SALGUERO DO, PHILIPPE K V04.81 FLU SHOT 01/11/2013 SALGUERO DO, PHILIPPE K V04.81 FLU SHOT 01/11/2013 SALGUERO DO, PHILIPPE K V04.81 FLU SHOT 01/11/2013 SALGUERO DO, PHILIPPE K V04.81 FLU SHOT 01/11/2013 SALGUERO DO, PHILIPPE K V04.81 FLU SHOT 01/11/2013 SALGUERO DO, PHILIPPE K V04.81 FLU SHOT 01/11/2013 SALGUERO DO, PHILIPPE K V04.81 FLU SHOT 01/11/2013 SALGUERO DO, PHILIPPE K V04.81 FLU SHOT 01/11/2013 SALGUERO DO, PHILIPPE K V04.81 FLU SHOT 01/11/2013 WHITE DDS, DEEDEE J V04.81 FLU SHOT 01/11/2013 MAEVE NARAYANAN PA-C V04.81 FLU SHOT 01/11/2013 SALGUERO DO, PHILIPPE K V04.81 FLU SHOT 01/11/2013 WHITE DDS, DEEDEE J V04.81 FLU SHOT 01/11/2013 ASHELY GROCERY DELIVERER, BOY J V04.81 FLU SHOT 01/11/2013 SALGUERO DO, PHILIPPE K V04.81 FLU SHOT 01/11/2013 SALGUERO DO, PHILIPPE K V04.81 FLU SHOT 01/11/2013 ASHELY GROCERY DELIVERER, BOY J V04.81 FLU SHOT 01/11/2013 WHITE DDS, DEEDEE J V04.81 FLU SHOT 01/11/2013 WHITE DDS, DEEDEE J V04.81 FLU SHOT 01/11/2013 SALGUERO DO, PHILIPPE K V04.81 FLU SHOT 01/11/2013 ASHELY GROCERY DELIVERER, BOY J V04.81 FLU SHOT 01/11/2013 ASHELY GROCERY DELIVERER, BOY J V04.81 FLU SHOT 01/11/2013 ASHELY GROCERY DELIVERER, BOY J V04.81 FLU SHOT 01/11/2013 ASHELY GROCERY DELIVERER, BOY J V04.81 FLU SHOT 01/11/2013 SALGUERO DO, PHILIPPE K V04.81 FLU SHOT 01/11/2013 SALGUERO DO, PHILIPPE K V04.81 FLU SHOT 01/11/2013 ASHELY GROCERY DELIVERER, BOY J V04.81 FLU SHOT 01/11/2013 ASHELY GROCERY DELIVERER, BOY J V04.81 FLU SHOT 01/11/2013 ASHELY GROCERY DELIVERER, BOY J V04.81 FLU SHOT 01/11/2013 SALGUERO DO, PHILIPPE K V04.81 FLU SHOT 01/11/2013 ASHELY GROCERY DELIVERER, BOY J V04.81 FLU SHOT 01/11/2013 [facility], JACKIE R V04.81 FLU SHOT 01/11/2013 SALGUERO DO, PHILIPPE K V04.81 FLU SHOT 01/11/2013 SALGUERO DO, PHILIPPE K V04.81 FLU SHOT 01/11/2013 MOY APRN, CHRIS A V04.81 FLU SHOT 01/11/2013 SALGUERO DO, PHILIPPE K V04.81 FLU SHOT 01/11/2013 [employer]HELY GROCERY DELIVERER, BOY J V04.81 FLU SHOT 01/11/2013 SALGUERO DO, PHILIPPE K V04.81 FLU SHOT 01/27/2013 SALGUERO DO, PHILIPPE K 799.02 HYPOXEMIA 01/27/2013 SALGUERO DO, PHILIPPE K 799.02 HYPOXEMIA 01/27/2013 SALGUERO DO, PHILIPPE K 799.02 HYPOXEMIA 01/27/2013 SALGUERO DO, PHILIPPE K 799.02 HYPOXEMIA 01/27/2013 SALGUERO DO, PHILIPPE K 799.02 HYPOXEMIA 01/27/2013 SALGUERO DO, PHILIPPE K 799.02 HYPOXEMIA 01/27/2013 SALGUERO DO, PHILIPPE K 799.02 HYPOXEMIA 01/27/2013 SALGUERO DO, PHILIPPE K 799.02 HYPOXEMIA 01/27/2013 WHITE DEEDEE JACOBSON 799.02 HYPOXEMIA 01/27/2013 MAEVE NARAYANAN PA-C 799.02 HYPOXEMIA 01/27/2013 SALGUERO DO, PHILIPPE K 799.02 HYPOXEMIA 01/27/2013 WHITE DDS, DEEDEE [place] 799.02 HYPOXEMIA 01/27/2013 BOY LUND APRN 799.02 HYPOXEMIA 01/27/2013 SALGUERO DO, PHILIPPE K 799.02 HYPOXEMIA 01/27/2013 SALGUERO DO, PHILIPPE K 799.02 HYPOXEMIA 01/27/2013 BOY LUND APRN 799.02 HYPOXEMIA 01/27/2013 WHITE IVONSDEEDEE 799.02 HYPOXEMIA 01/27/2013 WHITE DDS, DEEDEE [place] 799.02 HYPOXEMIA 01/27/2013 SALGUERO DO, PHILIPPE K 799.02 HYPOXEMIA 01/27/2013 ASHELY GROCERY DELIVERER, BOY J 799.02 HYPOXEMIA 01/27/2013 ASHELY GROCERY DELIVERER, BOY J 799.02 HYPOXEMIA 01/27/2013 ASHELY GROCERY DELIVERER, BOY J 799.02 HYPOXEMIA 01/27/2013 ASHELY GROCERY DELIVERER, BOY J 799.02 HYPOXEMIA 01/27/2013 SALGUERO DO, PHILIPPE K 799.02 HYPOXEMIA 01/27/2013 SALGUERO DO, PHILIPPE K 799.02 HYPOXEMIA 01/27/2013 ASHELY GROCERY DELIVERER, BOY J 799.02 HYPOXEMIA 01/27/2013 ASHELY GROCERY DELIVERER, BOY J 799.02 HYPOXEMIA 01/27/2013 ASHELY GROCERY DELIVERER, BOY J 799.02 HYPOXEMIA 01/27/2013 SALGUERO DO, PHILIPPE K 799.02 HYPOXEMIA 01/27/2013 ASHELY GROCERY DELIVERER, BOY J 799.02 HYPOXEMIA 01/27/2013 [facility], JACKIE R 799.02 HYPOXEMIA 01/27/2013 SALGUERO DO, PHILIPPE K 799.02 HYPOXEMIA 01/27/2013 SALGUERO DO, PHILIPPE K 799.02 HYPOXEMIA 01/27/2013 CHRIS WINTER APRN 799.02 HYPOXEMIA 01/27/2013 SALGUERO DO, PHILIPPE K 799.02 HYPOXEMIA 01/27/2013 [employer]HELY GROCERY DELIVERER, BOY J 799.02 HYPOXEMIA 01/27/2013 SALGUERO DO, PHILIPPE K 799.02 HYPOXEMIA 04/07/2013 SALGUERO DO, PHILIPPE K 780.52 INSOMNIA UNSPECIFIED 04/07/2013 SALGUERO DO, PHILIPPE K 780.52 INSOMNIA UNSPECIFIED 04/07/2013 SALGUERO DO, PHILIPPE K 780.52 INSOMNIA UNSPECIFIED 04/07/2013 SALGUERO DO, PHILIPPE K 780.52 INSOMNIA UNSPECIFIED 04/07/2013 SALGUERO DO, PHILIPPE K 780.52 INSOMNIA UNSPECIFIED 04/07/2013 WHITE DDSDEEDEE 780.52 INSOMNIA UNSPECIFIED 04/07/2013 MAEVE NARAYANAN PA-C 780.52 INSOMNIA UNSPECIFIED 04/07/2013 SALGUERO DO, PHILIPPE K 780.52 INSOMNIA UNSPECIFIED 04/07/2013 WHITE DDS, DEEDEE [place] 780.52 INSOMNIA UNSPECIFIED 04/07/2013 [employer]HELY GROCERY DELIVERER, BOY J 780.52 INSOMNIA UNSPECIFIED 04/07/2013 SALGUERO DO, PHILIPPE K 780.52 INSOMNIA UNSPECIFIED 04/07/2013 SALGUERO DO, PHILIPPE K 780.52 INSOMNIA UNSPECIFIED 04/07/2013 ASHELY GROCERY DELIVERER, BOY J 780.52 INSOMNIA UNSPECIFIED 04/07/2013 WHITE DDS, DEEDEE J 780.52 INSOMNIA UNSPECIFIED 04/07/2013 WHITE DDS, DEEDEE J 780.52 INSOMNIA UNSPECIFIED 04/07/2013 SALGUERO DO, PHILIPPE K 780.52 INSOMNIA UNSPECIFIED 04/07/2013 ASHELY GROCERY DELIVERER, BOY J 780.52 INSOMNIA UNSPECIFIED 04/07/2013 ASHELY GROCERY DELIVERER, BOY J 780.52 INSOMNIA UNSPECIFIED 04/07/2013 ASHELY GROCERY DELIVERER, BOY J 780.52 INSOMNIA UNSPECIFIED 04/07/2013 ASHELY GROCERY DELIVERER, BOY J 780.52 INSOMNIA UNSPECIFIED 04/07/2013 SALGUERO DO, PHILIPPE K 780.52 INSOMNIA UNSPECIFIED 04/07/2013 SALGUERO DO, PHILIPPE K 780.52 INSOMNIA UNSPECIFIED 04/07/2013 ASHELY GROCERY DELIVERER, BOY J 780.52 INSOMNIA UNSPECIFIED 04/07/2013 ASHELY GROCERY DELIVERER, BOY J 780.52 INSOMNIA UNSPECIFIED 04/07/2013 ASHELY GROCERY DELIVERER, BOY J 780.52 INSOMNIA UNSPECIFIED 04/07/2013 SALGUERO DO, PHILIPPE K 780.52 INSOMNIA UNSPECIFIED 04/07/2013 ASHELY GROCERY DELIVERER, BOY J 780.52 INSOMNIA UNSPECIFIED 04/07/2013 [facility], JACKIE R 780.52 INSOMNIA UNSPECIFIED 04/07/2013 SALGUERO DO, PHILIPPE K 780.52 INSOMNIA UNSPECIFIED 04/07/2013 SALGUERO DO, PHILIPPE K 780.52 INSOMNIA UNSPECIFIED 04/07/2013 MOY VASQUES CHRIS A 780.52 INSOMNIA UNSPECIFIED 04/07/2013 SALGUERO DO, PHILIPPE K 780.52 INSOMNIA UNSPECIFIED 04/07/2013 ASHELY GROCERY DELIVERER, BOY J 780.52 INSOMNIA UNSPECIFIED 04/07/2013 SALGUERO DO, PHILIPPE K 780.52 INSOMNIA UNSPECIFIED 05/18/2013 BEN CASTRO, LIZZIE [place] Ot 618.01 05/18/2013 LIZZIE CONTRERAS MD Ot 788.30 05/18/2013 LIZZIE CONTRERAS MD Ot V03.82 08/07/2013 SALGUERO DO, PHILIPPE K 276.8 HYPOPOTASSEMIA 08/07/2013 SALGUERO DO, PHILIPPE K 796.2 ELEVATED BLOOD PRESSURE READING WITHOUT DIAGNOSIS OF HYPERTENSION 08/07/2013 WHITE DDS, DEEDEE J 276.8 HYPOPOTASSEMIA 08/07/2013 WHITE DDS, DEEDEE J 796.2 ELEVATED BLOOD PRESSURE READING WITHOUT DIAGNOSIS OF HYPERTENSION 08/07/2013 ASHELY GROCERY DELIVERER, BOY J 276.8 HYPOPOTASSEMIA 08/07/2013 ASHELY CAPRICE, BOY J 796.2 ELEVATED BLOOD PRESSURE READING WITHOUT DIAGNOSIS OF HYPERTENSION 08/07/2013 SALGUERO DO, PHILIPPE K 276.8 HYPOPOTASSEMIA 08/07/2013 SALGUERO DO, PHILIPPE K 796.2 ELEVATED BLOOD PRESSURE READING WITHOUT DIAGNOSIS OF HYPERTENSION 08/07/2013 SALGUERO DO, PHILIPPE K 276.8 HYPOPOTASSEMIA 08/07/2013 SALGUERO DO, PHILIPPE K 796.2 ELEVATED BLOOD PRESSURE READING WITHOUT DIAGNOSIS OF HYPERTENSION 08/07/2013 ASHELY VASQUES BOY J 276.8 HYPOPOTASSEMIA 08/07/2013 ASHELY VASQUES, BOY J 796.2 ELEVATED BLOOD PRESSURE READING WITHOUT DIAGNOSIS OF HYPERTENSION 08/07/2013 WHITE DDS, DEEDEE J 276.8 HYPOPOTASSEMIA 08/07/2013 WHITE DDS, DEEDEE J 796.2 ELEVATED BLOOD PRESSURE READING WITHOUT DIAGNOSIS OF HYPERTENSION 08/07/2013 WHITE DDS, DEEDEE J 276.8 HYPOPOTASSEMIA 08/07/2013 WHITE DDS, DEEDEE J 796.2 ELEVATED BLOOD PRESSURE READING WITHOUT DIAGNOSIS OF HYPERTENSION 08/07/2013 SALGUERO DO, PHILIPPE K 276.8 HYPOPOTASSEMIA 08/07/2013 SALGUERO DO, PHILIPPE K 796.2 ELEVATED BLOOD PRESSURE READING WITHOUT DIAGNOSIS OF HYPERTENSION 08/07/2013 ASHELY SPANGLERN, BOY J 276.8 HYPOPOTASSEMIA 08/07/2013 ASHELY VASQUES, BOY J 796.2 ELEVATED BLOOD PRESSURE READING WITHOUT DIAGNOSIS OF HYPERTENSION 08/07/2013 ASHELY VASQUES BOY J 276.8 HYPOPOTASSEMIA 08/07/2013 ASHELY VASQUES BOY J 796.2 ELEVATED BLOOD PRESSURE READING WITHOUT DIAGNOSIS OF HYPERTENSION 08/07/2013 ASHELY VASQUES BOY J 276.8 HYPOPOTASSEMIA 08/07/2013 JUAREZ LUND APRNA J 796.2 ELEVATED BLOOD PRESSURE READING WITHOUT DIAGNOSIS OF HYPERTENSION 08/07/2013 JUAREZ LUND APRNA J 276.8 HYPOPOTASSEMIA 08/07/2013 JUAREZ LUND APRNA J 796.2 ELEVATED BLOOD PRESSURE READING WITHOUT DIAGNOSIS OF HYPERTENSION 08/07/2013 SALGUERO DO, PHILIPPE K 276.8 HYPOPOTASSEMIA 08/07/2013 SALGUERO DO, PHILIPPE K 796.2 ELEVATED BLOOD PRESSURE READING WITHOUT DIAGNOSIS OF HYPERTENSION 08/07/2013 SALGUERO DO, PHILIPPE K 276.8 HYPOPOTASSEMIA 08/07/2013 SALGUERO DO, PHILIPPE K 796.2 ELEVATED BLOOD PRESSURE READING WITHOUT DIAGNOSIS OF HYPERTENSION 08/07/2013 JUAREZ LUND APRNA J 276.8 HYPOPOTASSEMIA 08/07/2013 BOY LUND APRN J 796.2 ELEVATED BLOOD PRESSURE READING WITHOUT DIAGNOSIS OF HYPERTENSION 08/07/2013 JUAREZ LUND APRNA J 276.8 HYPOPOTASSEMIA 08/07/2013 BOY LUND APRN J 796.2 ELEVATED BLOOD PRESSURE READING WITHOUT DIAGNOSIS OF HYPERTENSION 08/07/2013 JUAREZ LUND APRNA J 276.8 HYPOPOTASSEMIA 08/07/2013 JUAREZ LUND APRNA J 796.2 ELEVATED BLOOD PRESSURE READING WITHOUT DIAGNOSIS OF HYPERTENSION 08/07/2013 SALGUERO DO, PHILIPPE K 276.8 HYPOPOTASSEMIA 08/07/2013 SALGUERO DO, PHILIPPE K 796.2 ELEVATED BLOOD PRESSURE READING WITHOUT DIAGNOSIS OF HYPERTENSION 08/07/2013 ASHELY VASQUES BOY J 276.8 HYPOPOTASSEMIA 08/07/2013 JUAREZ LUND APRNA J 796.2 ELEVATED BLOOD PRESSURE READING WITHOUT DIAGNOSIS OF HYPERTENSION 08/07/2013 [facility], JACKIE R 276.8 HYPOPOTASSEMIA 08/07/2013 [facility], JACKIE R 796.2 ELEVATED BLOOD PRESSURE READING WITHOUT DIAGNOSIS OF HYPERTENSION 08/07/2013 SALGUERO DO, PHILIPPE K 276.8 HYPOPOTASSEMIA 08/07/2013 SALGUERO DO, PHILIPPE K 796.2 ELEVATED BLOOD PRESSURE READING WITHOUT DIAGNOSIS OF HYPERTENSION 08/07/2013 SALGUERO DO, PHILIPPE K 276.8 HYPOPOTASSEMIA 08/07/2013 SALGUERO DO, PHILIPPE K 796.2 ELEVATED BLOOD PRESSURE READING WITHOUT DIAGNOSIS OF HYPERTENSION 08/07/2013 MOY GROCERY DELIVERER, CHRIS A 276.8 HYPOPOTASSEMIA 08/07/2013 MOY VASQUES, CHRIS A 796.2 ELEVATED BLOOD PRESSURE READING WITHOUT DIAGNOSIS OF HYPERTENSION 08/07/2013 SALGUERO DO, PHILIPPE K 276.8 HYPOPOTASSEMIA 08/07/2013 SALGUERO DO, PHILIPPE K 796.2 ELEVATED BLOOD PRESSURE READING WITHOUT DIAGNOSIS OF HYPERTENSION 08/07/2013 BECKY LUND APRNINDA J 276.8 HYPOPOTASSEMIA 08/07/2013 BECKY LUND APRNINDA J 796.2 ELEVATED BLOOD PRESSURE READING WITHOUT DIAGNOSIS OF HYPERTENSION 08/07/2013 SALGUERO DO, PHILIPPE K 276.8 HYPOPOTASSEMIA 08/07/2013 SALGUERO DO, PHILIPPE K 796.2 ELEVATED BLOOD PRESSURE READING WITHOUT DIAGNOSIS OF HYPERTENSION 09/07/2013 JUAREZ LUND APRNA J 295.70 SCHIZOAFFECTIVE DISORDER UNSPECIFIED STATE 09/07/2013 JUAREZ LUND APRNA J 309.81 AN PTSD 09/07/2013 TANISHA SALGUERO DOA K 295.70 SCHIZOAFFECTIVE DISORDER UNSPECIFIED STATE 09/07/2013 TANISHA SALGUERO DOA K 309.81 AN PTSD 09/07/2013 NOEMY OLVERA PHILIPPE K 295.70 SCHIZOAFFECTIVE DISORDER UNSPECIFIED STATE 09/07/2013 NOEMY OLVERA PHILIPPE K 309.81 AN PTSD 09/07/2013 JUAREZ LUND APRNA J 295.70 SCHIZOAFFECTIVE DISORDER UNSPECIFIED STATE 09/07/2013 JUAREZ LUND APRNA J 309.81 AN PTSD 09/07/2013 WHITE DDS, DEEDEE J 295.70 SCHIZOAFFECTIVE DISORDER UNSPECIFIED STATE 09/07/2013 WHITE DDS, DEEDEE J 309.81 AN PTSD 09/07/2013 WHITE DDS, DEEDEE J 295.70 SCHIZOAFFECTIVE DISORDER UNSPECIFIED STATE 09/07/2013 WHITE DDS, DEEDEE J 309.81 AN PTSD 09/07/2013 NOEMY OLVERA PHILIPPE K 295.70 SCHIZOAFFECTIVE DISORDER UNSPECIFIED STATE 09/07/2013 NOEMY OLVERA PHILIPPE K 309.81 AN PTSD 09/07/2013 JUAREZ LUND APRNA J 295.70 SCHIZOAFFECTIVE DISORDER UNSPECIFIED STATE 09/07/2013 JUAREZ LUND APRNA J 309.81 AN PTSD 09/07/2013 JUAREZ LUND APRNA J 295.70 SCHIZOAFFECTIVE DISORDER UNSPECIFIED STATE 09/07/2013 ASHELY GROCERY DELIVERERBECKY CurielBOY J 309.81 AN PTSD 09/07/2013 ASHELY GROCERY DELIVERER, BOY J 295.70 SCHIZOAFFECTIVE DISORDER UNSPECIFIED STATE 09/07/2013 ASHELY GROCERY DELIVERER, BOY J 309.81 AN PTSD 09/07/2013 ASHELY GROCERY DELIVERER, BOY J 295.70 SCHIZOAFFECTIVE DISORDER UNSPECIFIED STATE 09/07/2013 BECKY LUND APRNINDA J 309.81 AN PTSD 09/07/2013 SALGUERO DO PHILIPPE K 295.70 SCHIZOAFFECTIVE DISORDER UNSPECIFIED STATE 09/07/2013 SALGUERO DO, PHILIPPE K 309.81 AN PTSD 09/07/2013 SALGUERO DO PHILIPPE K 295.70 SCHIZOAFFECTIVE DISORDER UNSPECIFIED STATE 09/07/2013 SALGUERO DO PHILIPPE K 309.81 AN PTSD 09/07/2013 BECKY LUND APRNINDA J 295.70 SCHIZOAFFECTIVE DISORDER UNSPECIFIED STATE 09/07/2013 BECKY LUND APRNINDA J 309.81 AN PTSD 09/07/2013 BECKY LUND APRNINDA J 295.70 SCHIZOAFFECTIVE DISORDER UNSPECIFIED STATE 09/07/2013 BECKY LUND APRNINDA J 309.81 AN PTSD 09/07/2013 ASHELY VASQUES BOY J 295.70 SCHIZOAFFECTIVE DISORDER UNSPECIFIED STATE 09/07/2013 ASHELY VASQUES BOY J 309.81 AN PTSD 09/07/2013 SALGUERO DO PHILIPPE K 295.70 SCHIZOAFFECTIVE DISORDER UNSPECIFIED STATE 09/07/2013 SALGUERO DO PHILIPPE K 309.81 AN PTSD 09/07/2013 ASHELY VASQUES BOY J 295.70 SCHIZOAFFECTIVE DISORDER UNSPECIFIED STATE 09/07/2013 ASHELY VASQUES BOY J 309.81 AN PTSD 09/07/2013 [facility], JACKIE R 295.70 SCHIZOAFFECTIVE DISORDER UNSPECIFIED STATE 09/07/2013 [facility], [place]ACKIE R 309.81 AN PTSD 09/07/2013 SALGUERO , PHILIPPE K 295.70 SCHIZOAFFECTIVE DISORDER UNSPECIFIED STATE 09/07/2013 SALGUERO DO, PHILIPPE K 309.81 AN PTSD 09/07/2013 SALGUERO DO PHILIPPE K 295.70 SCHIZOAFFECTIVE DISORDER UNSPECIFIED STATE 09/07/2013 SALGUERO DO PHILIPPE K 309.81 AN PTSD 09/07/2013 MOY CHRIS VASQUES A 295.70 SCHIZOAFFECTIVE DISORDER UNSPECIFIED STATE 09/07/2013 MOYCHRIS Curiel APRN A 309.81 AN PTSD 09/07/2013 SALGUERO DO, PHILIPPE K 295.70 SCHIZOAFFECTIVE DISORDER UNSPECIFIED STATE 09/07/2013 SALGUERO DO PHILIPPE K 309.81 AN PTSD 09/07/2013 JUAREZ LUND APRNA J 295.70 SCHIZOAFFECTIVE DISORDER UNSPECIFIED STATE 09/07/2013 ASHELY GROCERY DELIVERERJUAREZA J 309.81 AN PTSD 09/07/2013 SALGUERO DO, PHILIPPE K 295.70 SCHIZOAFFECTIVE DISORDER UNSPECIFIED STATE 09/07/2013 SALGUERO DO PHILIPPE K 309.81 AN PTSD 09/15/2013 SALGUERO DO PHILIPPE K 530.81 GERD 09/15/2013 SALGUERO DO PHILIPPE K 788.30 URINARY INCONTINENCE UNSPECIFIED 09/15/2013 SALGUERO DO PHILIPPE K V25.9 CONTRACEPTION MANAGEMENT 09/15/2013 SALGUERO DO PHILIPPE K 530.81 GERD 09/15/2013 SALGUERO DO PHILIPPE K 788.30 URINARY INCONTINENCE UNSPECIFIED 09/15/2013 SALGUERO DO PHILIPPE K V25.9 CONTRACEPTION MANAGEMENT 09/15/2013 JUAREZ LUND APRNA J 530.81 GERD 09/15/2013 JUAREZ LUND APRNA J 788.30 URINARY INCONTINENCE UNSPECIFIED 09/15/2013 JUAREZ LUND APRNA J V25.9 CONTRACEPTION MANAGEMENT 09/15/2013 WHITE DDS, DEEDEE J 530.81 GERD 09/15/2013 WHITE DDS, DEEDEE J 788.30 URINARY INCONTINENCE UNSPECIFIED 09/15/2013 WHITE DDS, DEEDEE J V25.9 CONTRACEPTION MANAGEMENT 09/15/2013 WHITE DDS, DEEDEE J 530.81 GERD 09/15/2013 WHITE DDS, DEEDEE J 788.30 URINARY INCONTINENCE UNSPECIFIED 09/15/2013 WHITE DDS, DEEDEE J V25.9 CONTRACEPTION MANAGEMENT 09/15/2013 SALGUERO DO PHILIPPE K 530.81 GERD 09/15/2013 SALGUERO DO PHILIPPE K 788.30 URINARY INCONTINENCE UNSPECIFIED 09/15/2013 SALGUERO DO PHILIPPE K V25.9 CONTRACEPTION MANAGEMENT 09/15/2013 ASHELY GROCERY DELIVERER, BOY J 530.81 GERD 09/15/2013 ASHELY GROCERY DELIVERER, BOY J 788.30 URINARY INCONTINENCE UNSPECIFIED 09/15/2013 ASHELY GROCERY DELIVERERJUAREZA J V25.9 CONTRACEPTION MANAGEMENT 09/15/2013 ASHELY GROCERY DELIVERER, BOY J 530.81 GERD 09/15/2013 ASHELY GROCERY DELIVERER, BOY J 788.30 URINARY INCONTINENCE UNSPECIFIED 09/15/2013 ASHELY GROCERY DELIVERERJUAREZA J V25.9 CONTRACEPTION MANAGEMENT 09/15/2013 ASHELY GROCERY DELIVERER, BOY J 530.81 GERD 09/15/2013 ASHELY GROCERY DELIVERER, BOY J 788.30 URINARY INCONTINENCE UNSPECIFIED 09/15/2013 ASHELY GROCERY DELIVERER, BOY J V25.9 CONTRACEPTION MANAGEMENT 09/15/2013 ASHELY GROCERY DELIVERER, BOY J 530.81 GERD 09/15/2013 ASHELY GROCERY DELIVERER, BOY J 788.30 URINARY INCONTINENCE UNSPECIFIED 09/15/2013 ASHELY GROCERY DELIVERER, BOY J V25.9 CONTRACEPTION MANAGEMENT 09/15/2013 SALGUERO DO, PHILIPPE K 530.81 GERD 09/15/2013 SALGUERO DO, PHILIPPE K 788.30 URINARY INCONTINENCE UNSPECIFIED 09/15/2013 SALGUERO DO, PHILIPPE K V25.9 CONTRACEPTION MANAGEMENT 09/15/2013 SALGUERO DO, PHILIPPE K 530.81 GERD 09/15/2013 SALGUERO DO, PHILIPPE K 788.30 URINARY INCONTINENCE UNSPECIFIED 09/15/2013 SALGUERO DO, PHILIPPE K V25.9 CONTRACEPTION MANAGEMENT 09/15/2013 ASHELY GROCERY DELIVERER, BOY J 530.81 GERD 09/15/2013 ASHELY GROCERY DELIVERER, BOY J 788.30 URINARY INCONTINENCE UNSPECIFIED 09/15/2013 ASHELY GROCERY DELIVERER BOY J V25.9 CONTRACEPTION MANAGEMENT 09/15/2013 ASHELY GROCERY DELIVERER, BOY J 530.81 GERD 09/15/2013 ASHELY GROCERY DELIVERER, BOY J 788.30 URINARY INCONTINENCE UNSPECIFIED 09/15/2013 ASHELY GROCERY DELIVERER BOY J V25.9 CONTRACEPTION MANAGEMENT 09/15/2013 ASHELY GROCERY DELIVERER, BOY J 530.81 GERD 09/15/2013 ASHELY GROCERY DELIVERER BOY J 788.30 URINARY INCONTINENCE UNSPECIFIED 09/15/2013 ASHELY GROCERY DELIVERERJUAREZ CurielA J V25.9 CONTRACEPTION MANAGEMENT 09/15/2013 SALGUERO DO, PHILIPPE K 530.81 GERD 09/15/2013 SALGUERO DO, PHILIPPE K 788.30 URINARY INCONTINENCE UNSPECIFIED 09/15/2013 SALGUERO DO, PHILIPPE K V25.9 CONTRACEPTION MANAGEMENT 09/15/2013 ASHELY GROCERY DELIVERERJUAREZA J 530.81 GERD 09/15/2013 ASHELY GROCERY DELIVERER, BOY J 788.30 URINARY INCONTINENCE UNSPECIFIED 09/15/2013 ASHELY GROCERY DELIVERERJUAREZA J V25.9 CONTRACEPTION MANAGEMENT 09/15/2013 [facility], JACKIE R 530.81 GERD 09/15/2013 [facility], JACKIE R 788.30 URINARY INCONTINENCE UNSPECIFIED 09/15/2013 [facility], [place]ACKIE R V25.9 CONTRACEPTION MANAGEMENT 09/15/2013 SALGUERO DO, PHILIPPE K 530.81 GERD 09/15/2013 SALGUERO DO, PHILIPPE K 788.30 URINARY INCONTINENCE UNSPECIFIED 09/15/2013 SALGUERO DO, PHILIPPE K V25.9 CONTRACEPTION MANAGEMENT 09/15/2013 SALGUERO DO, PHILIPPE K 530.81 GERD 09/15/2013 SALGUERO DO, PHILIPPE K 788.30 URINARY INCONTINENCE UNSPECIFIED 09/15/2013 SALGUERO DO, PHILIPPE K V25.9 CONTRACEPTION MANAGEMENT 09/15/2013 MOY GROCERY DELIVERER, CHRIS A 530.81 GERD 09/15/2013 MOY GROCERY DELIVERER, CHRIS A 788.30 URINARY INCONTINENCE UNSPECIFIED 09/15/2013 MOY GROCERY DELIVERER, CHRIS A V25.9 CONTRACEPTION MANAGEMENT 09/15/2013 SALGUERO DO, PHILIPPE K 530.81 GERD 09/15/2013 SALGUERO DO PHILIPPE K 788.30 URINARY INCONTINENCE UNSPECIFIED 09/15/2013 SALGUERO DO PHILIPPE K V25.9 CONTRACEPTION MANAGEMENT 09/15/2013 ASHELY GROCERY DELIVERERJUAREZA J 530.81 GERD 09/15/2013 ASHELY GROCERY DELIVERERJUAREZA J 788.30 URINARY INCONTINENCE UNSPECIFIED 09/15/2013 ASHELY GROCERY DELIVERERBECKYBOY J V25.9 CONTRACEPTION MANAGEMENT 09/15/2013 SALGUERO DO, PHILIPPE K 530.81 GERD 09/15/2013 SALGUERO DO, PHILIPPE K 788.30 URINARY INCONTINENCE UNSPECIFIED 09/15/2013 SALGUERO DO PHILIPPE K V25.9 CONTRACEPTION MANAGEMENT 10/16/2013 SALGUERO DO PHILIPPE K 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 10/16/2013 PHILIPPE SALGUERO DO K 459.89 OTHER SPECIFIED CIRCULATORY SYSTEM DISORDERS 10/16/2013 PHILIPPE SALGUERO DO K 727.49 OTHER GANGLION AND CYST OF SYNOVIUM TENDON AND BURSA 10/16/2013 PHILIPPE SALGUERO DO K 783.21 LOSS OF WEIGHT 10/16/2013 BOY LUND APRN J 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 10/16/2013 BOY LUND APRN 459.89 OTHER SPECIFIED CIRCULATORY SYSTEM DISORDERS 10/16/2013 BOY LUND APRN 727.49 OTHER GANGLION AND CYST OF SYNOVIUM TENDON AND BURSA 10/16/2013 JUAREZ LUND APRNA J 783.21 LOSS OF WEIGHT 10/16/2013 BOY LUND APRN 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 10/16/2013 BOY LUND APRN 459.89 OTHER SPECIFIED CIRCULATORY SYSTEM DISORDERS 10/16/2013 BOY LUND APRN 727.49 OTHER GANGLION AND CYST OF SYNOVIUM TENDON AND BURSA 10/16/2013 JUAREZ LUND APRNA J 783.21 LOSS OF WEIGHT 10/16/2013 JUAREZ LUND APRNA J 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 10/16/2013 BOY LUND APRN 459.89 OTHER SPECIFIED CIRCULATORY SYSTEM DISORDERS 10/16/2013 BOY LUND APRN 727.49 OTHER GANGLION AND CYST OF SYNOVIUM TENDON AND BURSA 10/16/2013 BOY LUND APRN J 783.21 LOSS OF WEIGHT 10/16/2013 BOY LUND APRN 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 10/16/2013 BECKY LUND APRNINDA J 459.89 OTHER SPECIFIED CIRCULATORY SYSTEM DISORDERS 10/16/2013 JUAREZ LUND APRNA Marine 727.49 OTHER GANGLION AND CYST OF SYNOVIUM TENDON AND BURSA 10/16/2013 BECKY LUND APRNINDA J 783.21 LOSS OF WEIGHT 10/16/2013 PHILIPPE SALGUERO DO K 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 10/16/2013 PHILIPPE SALGUERO DO K 459.89 OTHER SPECIFIED CIRCULATORY SYSTEM DISORDERS 10/16/2013 PHILIPPE SALGUERO DO K 727.49 OTHER GANGLION AND CYST OF SYNOVIUM TENDON AND BURSA 10/16/2013 TANISHA SALGUERO DOA K 783.21 LOSS OF WEIGHT 10/16/2013 TANISHA SALGUERO DOA K 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 10/16/2013 TANISHA SALGUERO DOA K 459.89 OTHER SPECIFIED CIRCULATORY SYSTEM DISORDERS 10/16/2013 TANISHA SALGUERO DOA K 727.49 OTHER GANGLION AND CYST OF SYNOVIUM TENDON AND BURSA 10/16/2013 TANISHA SAGLUERO DOA K 783.21 LOSS OF WEIGHT 10/16/2013 BOY LUND APRN J 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 10/16/2013 BOY LUND APRN J 459.89 OTHER SPECIFIED CIRCULATORY SYSTEM DISORDERS 10/16/2013 BOY LUND APRN 727.49 OTHER GANGLION AND CYST OF SYNOVIUM TENDON AND BURSA 10/16/2013 BOY LUND APRN J 783.21 LOSS OF WEIGHT 10/16/2013 BOY LUND APRN 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 10/16/2013 JUAREZ LUND APRNA J 459.89 OTHER SPECIFIED CIRCULATORY SYSTEM DISORDERS 10/16/2013 BOY LUND APRN J 727.49 OTHER GANGLION AND CYST OF SYNOVIUM TENDON AND BURSA 10/16/2013 JUAREZ LUND APRNA J 783.21 LOSS OF WEIGHT 10/16/2013 JUAREZ LUND APRNA J 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 10/16/2013 JUAREZ LUND APRNA J 459.89 OTHER SPECIFIED CIRCULATORY SYSTEM DISORDERS 10/16/2013 BECKY LUND APRNINDA J 727.49 OTHER GANGLION AND CYST OF SYNOVIUM TENDON AND BURSA 10/16/2013 ASHELY VASQUES BOY J 783.21 LOSS OF WEIGHT 10/16/2013 PHILIPPE SALGUERO DO K 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 10/16/2013 TANISHA SALGUERO DOA K 459.89 OTHER SPECIFIED CIRCULATORY SYSTEM DISORDERS 10/16/2013 PHILIPPE SALGUERO DO K 727.49 OTHER GANGLION AND CYST OF SYNOVIUM TENDON AND BURSA 10/16/2013 SALGUERO DO, PHILIPPE K 783.21 LOSS OF WEIGHT 10/16/2013 BOY LUND APRN J 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 10/16/2013 BOY LUND APRN J 459.89 OTHER SPECIFIED CIRCULATORY SYSTEM DISORDERS 10/16/2013 BOY LUND APRN J 727.49 OTHER GANGLION AND CYST OF SYNOVIUM TENDON AND BURSA 10/16/2013 BOY LUND APRN 783.21 LOSS OF WEIGHT 10/16/2013 [facility], [place]IE R 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 10/16/2013 [facility], [place]ACKIE R 459.89 OTHER SPECIFIED CIRCULATORY SYSTEM DISORDERS 10/16/2013 [facility], [place]ACKIE R 727.49 OTHER GANGLION AND CYST OF SYNOVIUM TENDON AND BURSA 10/16/2013 [facility], [place] R 783.21 LOSS OF WEIGHT 10/16/2013 PHILIPPE SALGUERO DO K 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 10/16/2013 PHILIPPE SALGUERO DO K 459.89 OTHER SPECIFIED CIRCULATORY SYSTEM DISORDERS 10/16/2013 PHILIPPE SALGUERO DO K 727.49 OTHER GANGLION AND CYST OF SYNOVIUM TENDON AND BURSA 10/16/2013 PHILIPPE SALGUERO DO K 783.21 LOSS OF WEIGHT 10/16/2013 PHILIPPE SALGUERO DO K 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 10/16/2013 PHILIPPE SALGUERO DO K 459.89 OTHER SPECIFIED CIRCULATORY SYSTEM DISORDERS 10/16/2013 PHILIPPE SALGUERO DO K 727.49 OTHER GANGLION AND CYST OF SYNOVIUM TENDON AND BURSA 10/16/2013 TANISHA SALGUERO DOA K 783.21 LOSS OF WEIGHT 10/16/2013 CHRIS WINTER APRN A 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 10/16/2013 EVELIN WINTER APRNIDI A 459.89 OTHER SPECIFIED CIRCULATORY SYSTEM DISORDERS 10/16/2013 MOYEVELIN Curiel APRNIDI A 727.49 OTHER GANGLION AND CYST OF SYNOVIUM TENDON AND BURSA 10/16/2013 MOY VASQUES CHRIS A 783.21 LOSS OF WEIGHT 10/16/2013 PHILIPPE SALGUERO DO K 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 10/16/2013 TANISHA SALGUERO DOA K 459.89 OTHER SPECIFIED CIRCULATORY SYSTEM DISORDERS 10/16/2013 TANISHA SALGUERO DOA K 727.49 OTHER GANGLION AND CYST OF SYNOVIUM TENDON AND BURSA 10/16/2013 NOEMY OLVERA PHILIPPE K 783.21 LOSS OF WEIGHT 10/16/2013 JUAREZ LUND APRNA J 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 10/16/2013 BECKY LUND APRNINDA J 459.89 OTHER SPECIFIED CIRCULATORY SYSTEM DISORDERS 10/16/2013 ASHELY VASQUES BOY J 727.49 OTHER GANGLION AND CYST OF SYNOVIUM TENDON AND BURSA 10/16/2013 ASHELY VASQUES BOY J 783.21 LOSS OF WEIGHT 10/16/2013 TANISHA SALGUERO DOA K 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 10/16/2013 NOEMY OLVERA PHILIPPE K 459.89 OTHER SPECIFIED CIRCULATORY SYSTEM DISORDERS 10/16/2013 TANISHA SALGUERO DOA K 727.49 OTHER GANGLION AND CYST OF SYNOVIUM TENDON AND BURSA 10/16/2013 NOEMY OLVERA PHILIPPE K 783.21 LOSS OF WEIGHT 12/08/2013 NOEMY OLVERA PHILIPPE K 244.9 HYPOTHYROIDISM 12/08/2013 NOEMY OLVERA PHILIPPE K 401.1 HYPERTENSION, BENIGN ESSENTIAL 12/08/2013 NOEMY OLVERA PHILIPPE K 244.9 HYPOTHYROIDISM 12/08/2013 NOEMY OLVERA PHILIPPE K 401.1 HYPERTENSION, BENIGN ESSENTIAL 12/08/2013 ASHELY VASQUES, BOY J 244.9 HYPOTHYROIDISM 12/08/2013 BECKY LUND APRNINDA J 401.1 HYPERTENSION, BENIGN ESSENTIAL 12/08/2013 ASHELY SPANGLERN BOY J 244.9 HYPOTHYROIDISM 12/08/2013 ASHELY SPANGLERN, BOY J 401.1 HYPERTENSION, BENIGN ESSENTIAL 12/08/2013 ASHELY SPANGLERN, BOY J 244.9 HYPOTHYROIDISM 12/08/2013 ASHELY VASQUES, BOY J 401.1 HYPERTENSION, BENIGN ESSENTIAL 12/08/2013 NOEMY OLVERA PHILIPPE K 244.9 HYPOTHYROIDISM 12/08/2013 NOEMY OLVERA PHILIPPE K 401.1 HYPERTENSION, BENIGN ESSENTIAL 12/08/2013 ASHELY SPANGLERN BOY J 244.9 HYPOTHYROIDISM 12/08/2013 BECKY LUND APRNINDA J 401.1 HYPERTENSION, BENIGN ESSENTIAL 12/08/2013 [facility], JACKIE R 244.9 HYPOTHYROIDISM 12/08/2013 [facility], JACKIE R 401.1 HYPERTENSION, BENIGN ESSENTIAL 12/08/2013 SALGU[facility] DO, PHILIPPE K 244.9 HYPOTHYROIDISM 12/08/2013 SALGUERO DO, PHILIPPE K 401.1 HYPERTENSION, BENIGN ESSENTIAL 12/08/2013 SALGUERO DO, PHILIPPE K 244.9 HYPOTHYROIDISM 12/08/2013 SALGUERO DO, PHILIPPE K 401.1 HYPERTENSION, BENIGN ESSENTIAL 12/08/2013 [employer], CHRIS A 244.9 HYPOTHYROIDISM 12/08/2013 [employer], CHRIS A 401.1 HYPERTENSION, BENIGN ESSENTIAL 12/08/2013 SALGUERO DO, PHILIPPE K 244.9 HYPOTHYROIDISM 12/08/2013 SALGUERO DO, PHILIPPE K 401.1 HYPERTENSION, BENIGN ESSENTIAL 12/08/2013 ASHELY CAPRICE, BOY J 244.9 HYPOTHYROIDISM 12/08/2013 ASHELY CAPRICE, BOY J 401.1 HYPERTENSION, BENIGN ESSENTIAL 12/08/2013 [facility]GU[facility] DO, PHILIPPE K 244.9 HYPOTHYROIDISM 12/08/2013 SALGUERO DO, PHILIPPE K 401.1 HYPERTENSION, BENIGN ESSENTIAL 01/08/2014 SALGUERO DO, PHILIPPE K 719.46 PAIN IN JOINT INVOLVING LOWER LEG 01/08/2014 [facility]GU[facility] DO, PHILIPPE K 782.1 RASH 01/08/2014 JUAREZ LUND APRNA J 719.46 PAIN IN JOINT INVOLVING LOWER LEG 01/08/2014 BECKY LUND APRNINDA J 782.1 RASH 01/08/2014 BECKY LUND APRNINDA J 719.46 PAIN IN JOINT INVOLVING LOWER LEG 01/08/2014 ASHELY VASQUES BOY J 782.1 RASH 01/08/2014 ASHELY VASQUES BOY J 719.46 PAIN IN JOINT INVOLVING LOWER LEG 01/08/2014 ASHELY VASQUES, BOY J 782.1 RASH 01/08/2014 SALGUERO DO PHILIPPE K 719.46 PAIN IN JOINT INVOLVING LOWER LEG 01/08/2014 SALGUERO DO, PHILIPPE K 782.1 RASH 01/08/2014 ASHELY VASQUES BOY J 719.46 PAIN IN JOINT INVOLVING LOWER LEG 01/08/2014 ASHELY VASQUES BOY J 782.1 RASH 01/08/2014 [facility], JACKIE R 719.46 PAIN IN JOINT INVOLVING LOWER LEG 01/08/2014 [facility], JACKIE R 782.1 RASH 01/08/2014 SALGU[facility] DO, PHILIPPE K 719.46 PAIN IN JOINT INVOLVING LOWER LEG 01/08/2014 SALGUERO DO, PHILIPPE K 782.1 RASH 01/08/2014 SALGUERO DO, PHILIPPE K 719.46 PAIN IN JOINT INVOLVING LOWER LEG 01/08/2014 [facility] DO, PHILIPPE K 782.1 RASH 01/08/2014 CHRIS WINTER APRN A 719.46 PAIN IN JOINT INVOLVING LOWER LEG 01/08/2014 MOY VASQUES CHRIS A 782.1 RASH 01/08/2014 [facility]GU[facility] DO, PHILIPPE K 719.46 PAIN IN JOINT INVOLVING LOWER LEG 01/08/2014 [facility]GUERO DO, PHILIPPE K 782.1 RASH 01/08/2014 BOY LUND APRN 719.46 PAIN IN JOINT INVOLVING LOWER LEG 01/08/2014 BOY LUND APRN 782.1 RASH 01/08/2014 SALGUERO DO PHILIPPE K 719.46 PAIN IN JOINT INVOLVING LOWER LEG 01/08/2014 [facility]GU[facility] DO, PHILIPPE K 782.1 RASH 02/04/2014 RONEL GRAVES DO Ot 883.1 02/04/2014 RONEL GRAVES DO Ot E000.8 02/04/2014 RONEL GRAVES DO Ot E920.8 03/30/2014 [facility], JACKIE R 780.4 DIZZINESS AND VERTIGO 03/30/2014 [facility], JACKIE R 780.79 OTHER MALAISE AND FATIGUE 03/30/2014 [facility] DO, PHILIPPE K 780.4 DIZZINESS AND VERTIGO 03/30/2014 SALGUERO DO, PHILIPPE K 780.79 OTHER MALAISE AND FATIGUE 03/30/2014 SALGU[facility] DO, PHILIPPE K 780.4 DIZZINESS AND VERTIGO 03/30/2014 [facility]GU[facility] DO, PHILIPPE K 780.79 OTHER MALAISE AND FATIGUE 03/30/2014 EVELIN WINTER APRNIDI A 780.4 DIZZINESS AND VERTIGO 03/30/2014 MOY VASQUES CHRIS A 780.79 OTHER MALAISE AND FATIGUE 03/30/2014 SALGUERO DO, PHILIPPE K 780.4 DIZZINESS AND VERTIGO 03/30/2014 SALGUERO DO, PHILIPPE K 780.79 OTHER MALAISE AND FATIGUE 03/30/2014 BOY LUND APRN 780.4 DIZZINESS AND VERTIGO 03/30/2014 BOY LUND APRN 780.79 OTHER MALAISE AND FATIGUE 03/30/2014 [facility] DO, PHILIPPE K 780.4 DIZZINESS AND VERTIGO 03/30/2014 SALGU[facility] DO, PHILIPPE K 780.79 OTHER MALAISE AND FATIGUE 04/02/2014 [facility], JACKIE R 280.9 ANEMIA, IRON DEFICIENCY 04/02/2014 SALGUERO DO, PHILIPPE K 280.9 ANEMIA, IRON DEFICIENCY 04/02/2014 [facility]GU[facility] DO, PHILIPPE K 280.9 ANEMIA, IRON DEFICIENCY 04/02/2014 [employer], CHRIS A 280.9 ANEMIA, IRON DEFICIENCY 04/02/2014 [facility] DO, PHILIPPE K 280.9 ANEMIA, IRON DEFICIENCY 04/02/2014 BOY LUND APRN J 280.9 ANEMIA, IRON DEFICIENCY 04/02/2014 [facility] DO, PHILIPPE K 280.9 ANEMIA, IRON DEFICIENCY 04/10/2014 [facility] DO, PHILIPPE K 285.9 ANEMIA UNSPECIFIED 04/10/2014 SALGUERO DO, PHILIPPE K 723.1 CERVICALGIA 04/10/2014 SALGUERO DO, PHILIPPE K 729.5 PAIN IN LIMB 04/10/2014 SALGUERO DO, PHILIPPE K 784.2 SWELLING MASS OR LUMP IN HEAD AND NECK 04/10/2014 SALGUERO DO, PHILIPPE K 285.9 ANEMIA UNSPECIFIED 04/10/2014 SALGUERO DO, PHILIPPE K 723.1 CERVICALGIA 04/10/2014 SALGUERO DO, PHILIPPE K 729.5 PAIN IN LIMB 04/10/2014 SALGUERO DO, PHILIPPE K 784.2 SWELLING MASS OR LUMP IN HEAD AND NECK 04/10/2014 MOY GROCERY DELIVERER, CHRIS A 285.9 ANEMIA UNSPECIFIED 04/10/2014 MOY GROCERY DELIVERER, CHRIS A 723.1 CERVICALGIA 04/10/2014 MOY GROCERY DELIVERER, CHRIS A 729.5 PAIN IN LIMB 04/10/2014 MOY GROCERY DELIVERER, CHRIS A 784.2 SWELLING MASS OR LUMP IN HEAD AND NECK 04/10/2014 SALGUERO DO,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 11/20/2015 ROCÍO STERN MD Ot Z68.41 BODY MASS INDEX (BMI) 40.0-44.9, ADULT 11/20/2015 ROCÍO STERN MD Ot Z79.899 OTHER CARE HOME (CURRENT) DRUG THERAPY 01/20/2016 ROCÍO STERN MD, Ot 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 01/20/2016 ROCÍO STERN MD Ot E66.01 MORBID (SEVERE) OBESITY DUE TO EXCESS CA 01/20/2016 ROCÍO STERN MD Ot E78.5 HYPERLIPIDEMIA, UNSPECIFIED 01/20/2016 JARRED CASTRO, ROCÍO Ot F31.9 BIPOLAR DISORDER, UNSPECIFIED 01/20/2016 JARRED CASTRO, ROCÍO Ot I10 ESSENTIAL (PRIMARY) HYPERTENSION 01/20/2016 JARRED CASTRO, ROCÍO Ot J44.9 CHRONIC OBSTRUCTIVE PULMONARY DISEASE, U 01/20/2016 ROCÍO STERN MD Ot K21.9 GASTRO-ESOPHAGEAL REFLUX DISEASE WITHOUT 01/20/2016 ROCÍO STERN MD Ot Z68.41 BODY MASS INDEX (BMI) 40.0-44.9, ADULT 01/20/2016 ROCÍO STERN MD Ot Z79.899 OTHER CARE HOME (CURRENT) DRUG THERAPY 01/20/2016 XAVIER GARSIA Ot 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 01/20/2016 XAVIER GARSIA Ot E66.01 MORBID (SEVERE) OBESITY DUE TO EXCESS CA 01/20/2016 XAVIER GARSIA Ot E78.5 HYPERLIPIDEMIA, UNSPECIFIED 01/20/2016 XAVIER GARSIA Ot F31.9 BIPOLAR DISORDER, UNSPECIFIED 01/20/2016 XAVIER GARSIA Ot I10 ESSENTIAL (PRIMARY) HYPERTENSION 01/20/2016 XAVIER GARSIA Ot J44.9 CHRONIC OBSTRUCTIVE PULMONARY DISEASE, U 01/20/2016 XAVIER GARSIA Ot K21.9 GASTRO-ESOPHAGEAL REFLUX DISEASE WITHOUT 01/20/2016 XAVIER GARSIA Ot Z68.41 BODY MASS INDEX (BMI) 40.0-44.9, ADULT 01/20/2016 XAVIER GARSIA Ot Z79.899 OTHER OPERATIONS SUPPORT PROFESSIONALS (CURRENT) DRUG THERAPY 01/28/2016 CHRIS WINTER GROCERY DELIVERER Ot 626.8 MENSTRUAL DISORDER NEC 01/28/2016 MAGALLANES DO MYNOR C Ot 626.8 MENSTRUAL DISORDER NEC 01/28/2016 MAGALLANES DO MYNOR C Ot V72.84 EXAM PRE-OPERATIVE NOS 01/28/2016 MAGALLANES DO, MYNOR C Ot V74.8 SCREEN-BACTERIAL DIS NEC 01/28/2016 MAGALLANES DO MYNOR C Ot 626.9 MENSTRUAL DISORDER NOS 01/28/2016 MAGALLANES DO, MYNOR C Ot V72.84 EXAM PRE-OPERATIVE NOS 01/28/2016 MAGALLANES DO MYNOR C Ot 789.00 ABDOMINAL PAIN, UNSPECIFIED SITE 01/28/2016 ELIZABETH LEYVA GROCERY DELIVERER Ot N63 UNSPECIFIED LUMP IN BREAST 01/28/2016 BEN CASTRO, LIZZIE [place] Ot N32.81 OVERACTIVE BLADDER 01/28/2016 BEN CASTRO, LIZZIE [place] Ot N39.46 MIXED INCONTINENCE 01/28/2016 BEN CASTRO, LIZZIE [place] Ot Z01.818 ENCOUNTER FOR OTHER PREPROCEDURAL EXAMIN 01/28/2016 BEN CASTRO, LIZZIE [place] Ot Z11.2 ENCOUNTER FOR SCREENING FOR OTHER BACTER 01/28/2016 SOFIA CASTRO, ANJUM Ferreira Ot C50.912 MALIGNANT NEOPLASM OF UNSPECIFIED SITE O 01/28/2016 Ot C50.912 MALIGNANT NEOPLASM OF UNSPECIFIED SITE O 01/28/2016 Ot Z01.818 ENCOUNTER FOR OTHER PREPROCEDURAL EXAMIN 01/28/2016 Ot Z11.2 ENCOUNTER FOR SCREENING FOR OTHER BACTER 01/28/2016 DIEZCODY Sharma CLINICAL REIMBURSEMENT SPECIALIST Ot 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 01/28/2016 DIEZCODY Sharma CLINICAL REIMBURSEMENT SPECIALIST Ot E66.01 MORBID (SEVERE) OBESITY DUE TO EXCESS CA 01/28/2016 DIEZ CODY Sharma CLINICAL REIMBURSEMENT SPECIALIST Ot E78.5 HYPERLIPIDEMIA, UNSPECIFIED 01/28/2016 DIEZ CODY Sharma CLINICAL REIMBURSEMENT SPECIALIST Ot F31.9 BIPOLAR DISORDER, UNSPECIFIED 01/28/2016 RG CODY Sharma CLINICAL REIMBURSEMENT SPECIALIST Ot I10 ESSENTIAL (PRIMARY) HYPERTENSION 01/28/2016 DIEZ CODY Sharma CLINICAL REIMBURSEMENT SPECIALIST Ot J44.9 CHRONIC OBSTRUCTIVE PULMONARY DISEASE, U 01/28/2016 DIEZCODY Sharma CLINICAL REIMBURSEMENT SPECIALIST Ot K21.9 GASTRO-ESOPHAGEAL REFLUX DISEASE WITHOUT 01/28/2016 KAREN DIEZSARAH MATTAP Ot Z17.0 ESTROGEN RECEPTOR POSITIVE STATUS [ER+] 01/28/2016 DIEZ CODY Sharma CLINICAL REIMBURSEMENT SPECIALIST Ot Z68.41 BODY MASS INDEX (BMI) 40.0-44.9, ADULT 01/28/2016 DIEZ CODY MATTAP Ot Z79.899 OTHER CARE HOME (CURRENT) DRUG THERAPY 01/28/2016 ADYCAT ALCOCERSACHI Curiel Ot 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 01/28/2016 XAVIER GARSIA Ot E66.01 MORBID (SEVERE) OBESITY DUE TO EXCESS CA 01/28/2016 ADYXAVIER ALCOCER N Ot E78.5 HYPERLIPIDEMIA, UNSPECIFIED 01/28/2016 ADYXAVIER ALCOCER N Ot F31.9 BIPOLAR DISORDER, UNSPECIFIED 01/28/2016 ADYXAVIER ALCOCER N Ot I10 ESSENTIAL (PRIMARY) HYPERTENSION 01/28/2016 ADYXAVIER ALCOCER N Ot J44.9 CHRONIC OBSTRUCTIVE PULMONARY DISEASE, U 01/28/2016 ADYCAT ALCOCERAN N Ot K21.9 GASTRO-ESOPHAGEAL REFLUX DISEASE WITHOUT 01/28/2016 ADYCAT ALCOCERAN N Ot Z68.41 BODY MASS INDEX (BMI) 40.0-44.9, ADULT 01/28/2016 XAVIER GARSIA Ot Z79.899 OTHER CARE HOME (CURRENT) DRUG THERAPY 01/28/2016 XAVIER GARSIA Ot 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 01/28/2016 XAVIER GARSIA Ot E66.01 MORBID (SEVERE) OBESITY DUE TO EXCESS CA 01/28/2016 XAVIER GARSIA Ot E78.5 HYPERLIPIDEMIA, UNSPECIFIED 01/28/2016 XAVIER GARSIA Ot F31.9 BIPOLAR DISORDER, UNSPECIFIED 01/28/2016 XAVIER GARSIA Ot I10 ESSENTIAL (PRIMARY) HYPERTENSION 01/28/2016 XAVIER GARSIA Ot J44.9 CHRONIC OBSTRUCTIVE PULMONARY DISEASE, U 01/28/2016 XAVIER GARSIA Ot K21.9 GASTRO-ESOPHAGEAL REFLUX DISEASE WITHOUT 01/28/2016 XAVIER GARSIA Ot Z68.41 BODY MASS INDEX (BMI) 40.0-44.9, ADULT 01/28/2016 XAVIER GARSIA Ot Z79.899 OTHER CARE HOME (CURRENT) DRUG THERAPY 02/24/2016 CHRIS WINTER GROCERY DELIVERER Ot 626.8 MENSTRUAL DISORDER NEC 02/24/2016 MAGALLANESMYNOR Quintero DO C Ot 626.8 MENSTRUAL DISORDER NEC 02/24/2016 MYNOR MAGALLANES DO C Ot V72.84 EXAM PRE-OPERATIVE NOS 02/24/2016 MYNOR MAGALLANES DO C Ot V74.8 SCREEN-BACTERIAL DIS NEC 02/24/2016 SONA OLVERA MYNOR C Ot 626.9 MENSTRUAL DISORDER NOS 02/24/2016 SONA OLVERA MYNOR C Ot V72.84 EXAM PRE-OPERATIVE NOS 02/24/2016 SONA OLVERA MYNOR C Ot 789.00 ABDOMINAL PAIN, UNSPECIFIED SITE 02/24/2016 ELIZABETH LEYVA GROCERY DELIVERER Ot N63 UNSPECIFIED LUMP IN BREAST 02/24/2016 BEN CASTRO, LIZZIE [place] Ot N32.81 OVERACTIVE BLADDER 02/24/2016 BEN CASTRO, LIZZIE [place] Ot N39.46 MIXED INCONTINENCE 02/24/2016 BEN CASTRO, LIZZIE [place] Ot Z01.818 ENCOUNTER FOR OTHER PREPROCEDURAL EXAMIN 02/24/2016 BEN CASTRO, LIZZIE [place] Ot Z11.2 ENCOUNTER FOR SCREENING FOR OTHER BACTER 02/24/2016 SOFIA CASTRO, ANJUM Ferreira Ot C50.912 MALIGNANT NEOPLASM OF UNSPECIFIED SITE O 02/24/2016 Ot C50.912 MALIGNANT NEOPLASM OF UNSPECIFIED SITE O 02/24/2016 Ot Z01.818 ENCOUNTER FOR OTHER PREPROCEDURAL EXAMIN 02/24/2016 Ot Z11.2 ENCOUNTER FOR SCREENING FOR OTHER BACTER 02/24/2016 CODY DIEZ CLINICAL REIMBURSEMENT SPECIALIST Ot 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 02/24/2016 CODY DIEZ CLINICAL REIMBURSEMENT SPECIALIST Ot E66.01 MORBID (SEVERE) OBESITY DUE TO EXCESS CA 02/24/2016 CODY DIEZP Ot E78.5 HYPERLIPIDEMIA, UNSPECIFIED 02/24/2016 CODY DIEZP Ot F31.9 BIPOLAR DISORDER, UNSPECIFIED 02/24/2016 CODY DIEZ CLINICAL REIMBURSEMENT SPECIALIST Ot I10 ESSENTIAL (PRIMARY) HYPERTENSION 02/24/2016 CODY DIEZP Ot J44.9 CHRONIC OBSTRUCTIVE PULMONARY DISEASE, U 02/24/2016 CODY DIEZ CLINICAL REIMBURSEMENT SPECIALIST Ot K21.9 GASTRO-ESOPHAGEAL REFLUX DISEASE WITHOUT 02/24/2016 CODY DIEZ CLINICAL REIMBURSEMENT SPECIALIST Ot Z17.0 ESTROGEN RECEPTOR POSITIVE STATUS [ER+] 02/24/2016 CODY DIEZ CLINICAL REIMBURSEMENT SPECIALIST Ot Z68.41 BODY MASS INDEX (BMI) 40.0-44.9, ADULT 02/24/2016 KAREN DIEZSARAH Sharma CLINICAL REIMBURSEMENT SPECIALIST Ot Z79.899 OTHER CARE HOME (CURRENT) DRUG THERAPY 02/24/2016 XAVIER GARSIA Ot 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 02/24/2016 XAVIER GARSIA Ot E66.01 MORBID (SEVERE) OBESITY DUE TO EXCESS CA 02/24/2016 XAVIER GARSIA Ot E78.5 HYPERLIPIDEMIA, UNSPECIFIED 02/24/2016 ADYXAVIER ALCOCER Ot F31.9 BIPOLAR DISORDER, UNSPECIFIED 02/24/2016 ADYXAVIER ALCOCER N Ot I10 ESSENTIAL (PRIMARY) HYPERTENSION 02/24/2016 XAVIER GARSIA N Ot J44.9 CHRONIC OBSTRUCTIVE PULMONARY DISEASE, U 02/24/2016 XAVIER GARSIA N Ot K21.9 GASTRO-ESOPHAGEAL REFLUX DISEASE WITHOUT 02/24/2016 XAVIER GARSIA N Ot Z68.41 BODY MASS INDEX (BMI) 40.0-44.9, ADULT 02/24/2016 XAVIER GARSIA Ot Z79.899 OTHER CARE HOME (CURRENT) DRUG THERAPY 03/20/2016 XAVIER GARSIA Ot 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 03/20/2016 XAVIER GARSIA Ot E66.01 MORBID (SEVERE) OBESITY DUE TO EXCESS CA 03/20/2016 XAVIER GARSIA Ot E78.5 HYPERLIPIDEMIA, UNSPECIFIED 03/20/2016 XAVIER GARSIA Ot F31.9 BIPOLAR DISORDER, UNSPECIFIED 03/20/2016 XAVIER GARSIA Ot I10 ESSENTIAL (PRIMARY) HYPERTENSION 03/20/2016 XAVIER GARSIA Ot J44.9 CHRONIC OBSTRUCTIVE PULMONARY DISEASE, U 03/20/2016 XAVIER GARSIA Ot K21.9 GASTRO-ESOPHAGEAL REFLUX DISEASE WITHOUT 03/20/2016 XAVIER GARSIA Ot Z68.41 BODY MASS INDEX (BMI) 40.0-44.9, ADULT 03/20/2016 XAVIER GARSIA Ot Z79.899 OTHER OPERATIONS SUPPORT PROFESSIONALS (CURRENT) DRUG THERAPY 04/15/2016 CHRIS WINTER GROCERY DELIVERER Ot 626.8 MENSTRUAL DISORDER NEC 04/15/2016 MAGALLANES DO MYNOR C Ot 626.8 MENSTRUAL DISORDER NEC 04/15/2016 SONA OLVERA MYNOR C Ot V72.84 EXAM PRE-OPERATIVE NOS 04/15/2016 MAGALLANES DO MYNOR C Ot V74.8 SCREEN-BACTERIAL DIS NEC 04/15/2016 MAGALLANES DO MYNOR C Ot 626.9 MENSTRUAL DISORDER NOS 04/15/2016 MAGALLANES DO MYNOR C Ot V72.84 EXAM PRE-OPERATIVE NOS 04/15/2016 MAGALLANESLeon OLVERA MYNOR C Ot 789.00 ABDOMINAL PAIN, UNSPECIFIED SITE 04/15/2016 ELIZABETH LEYVA GROCERY DELIVERER Ot N63 UNSPECIFIED LUMP IN BREAST 04/15/2016 BEN CASTRO, LIZZIE [place] Ot N32.81 OVERACTIVE BLADDER 04/15/2016 BEN CASTRO, LIZZIE [place] Ot N39.46 MIXED INCONTINENCE 04/15/2016 BEN CASTRO, LIZZIE [place] Ot Z01.818 ENCOUNTER FOR OTHER PREPROCEDURAL EXAMIN 04/15/2016 BEN CASTRO, LIZZIE [place] Ot Z11.2 ENCOUNTER FOR SCREENING FOR OTHER BACTER 04/15/2016 SOFIA CASTRO, ANJUM Hanna Ot C50.912 MALIGNANT NEOPLASM OF UNSPECIFIED SITE O 04/15/2016 Ot C50.912 MALIGNANT NEOPLASM OF UNSPECIFIED SITE O 04/15/2016 Ot Z01.818 ENCOUNTER FOR OTHER PREPROCEDURAL EXAMIN 04/15/2016 Ot Z11.2 ENCOUNTER FOR SCREENING FOR OTHER BACTER 04/15/2016 CODY DIEZ CLINICAL REIMBURSEMENT SPECIALIST Ot 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 04/15/2016 CODY DIEZ CLINICAL REIMBURSEMENT SPECIALIST Ot E66.01 MORBID (SEVERE) OBESITY DUE TO EXCESS CA 04/15/2016 CODY DIEZP Ot E78.5 HYPERLIPIDEMIA, UNSPECIFIED 04/15/2016 CODY DIEZ CLINICAL REIMBURSEMENT SPECIALIST Ot F31.9 BIPOLAR DISORDER, UNSPECIFIED 04/15/2016 CODY DIEZ CLINICAL REIMBURSEMENT SPECIALIST Ot I10 ESSENTIAL (PRIMARY) HYPERTENSION 04/15/2016 CODY DIEZP Ot J44.9 CHRONIC OBSTRUCTIVE PULMONARY DISEASE, U 04/15/2016 CODY DIEZ CLINICAL REIMBURSEMENT SPECIALIST Ot K21.9 GASTRO-ESOPHAGEAL REFLUX DISEASE WITHOUT 04/15/2016 CODY DIEZ Edith CLINICAL REIMBURSEMENT SPECIALIST Ot Z17.0 ESTROGEN RECEPTOR POSITIVE STATUS [ER+] 04/15/2016 CODY DIEZ CLINICAL REIMBURSEMENT SPECIALIST Ot Z68.41 BODY MASS INDEX (BMI) 40.0-44.9, ADULT 04/15/2016 KAREN DIEZSARAH Sharma CLINICAL REIMBURSEMENT SPECIALIST Ot Z79.899 OTHER OPERATIONS SUPPORT PROFESSIONALS (CURRENT) DRUG THERAPY 04/15/2016 XAVIER GARSIA Ot 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 04/15/2016 ADYXAVIER ALCOCER N Ot E66.01 MORBID (SEVERE) OBESITY DUE TO EXCESS CA 04/15/2016 ADYXAVIER ALCOCER N Ot E78.5 HYPERLIPIDEMIA, UNSPECIFIED 04/15/2016 ADYXAVIER ALCOCER N Ot F31.9 BIPOLAR DISORDER, UNSPECIFIED 04/15/2016 ADY, BOBAN N Ot I10 ESSENTIAL (PRIMARY) HYPERTENSION 04/15/2016 ADYXAVIER ALCOCER N Ot J44.9 CHRONIC OBSTRUCTIVE PULMONARY DISEASE, U 04/15/2016 XAVIER GARSIA N Ot K21.9 GASTRO-ESOPHAGEAL REFLUX DISEASE WITHOUT 04/15/2016 ADY, BOBAN N Ot Z68.41 BODY MASS INDEX (BMI) 40.0-44.9, ADULT 04/15/2016 ADY, BOBAN N Ot Z79.899 OTHER OPERATIONS SUPPORT PROFESSIONALS (CURRENT) DRUG THERAPY 05/12/2016 ADY BOBAN N Ot 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 05/12/2016 ADY, BOBAN N Ot E66.01 MORBID (SEVERE) OBESITY DUE TO EXCESS CA 05/12/2016 ADY, BOBAN N Ot E78.5 HYPERLIPIDEMIA, UNSPECIFIED 05/12/2016 ADY, BOBAN N Ot F31.9 BIPOLAR DISORDER, UNSPECIFIED 05/12/2016 ADY, BOBAN N Ot I10 ESSENTIAL (PRIMARY) HYPERTENSION 05/12/2016 ADY, BOBAN N Ot J44.9 CHRONIC OBSTRUCTIVE PULMONARY DISEASE, U 05/12/2016 ADY, BOBAN N Ot K21.9 GASTRO-ESOPHAGEAL REFLUX DISEASE WITHOUT 05/12/2016 ADY, BOBAN N Ot Z68.41 BODY MASS INDEX (BMI) 40.0-44.9, ADULT 05/12/2016 ADY, BOBAN N Ot Z79.899 OTHER CARE HOME (CURRENT) DRUG THERAPY 05/19/2016 ADY, BOBAN N Ot 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 05/19/2016 ADY, BOBAN N Ot E66.01 MORBID (SEVERE) OBESITY DUE TO EXCESS CA 05/19/2016 ADY, BOBAN N Ot E78.5 HYPERLIPIDEMIA, UNSPECIFIED 05/19/2016 ADY, BOBAN N Ot F31.9 BIPOLAR DISORDER, UNSPECIFIED 05/19/2016 ADY, BOBAN N Ot I10 ESSENTIAL (PRIMARY) HYPERTENSION 05/19/2016 ADY, BOBAN N Ot J44.9 CHRONIC OBSTRUCTIVE PULMONARY DISEASE, U 05/19/2016 ADY, BOBAN N Ot K21.9 GASTRO-ESOPHAGEAL REFLUX DISEASE WITHOUT 05/19/2016 ADY, BOBAN N Ot Z68.41 BODY MASS INDEX (BMI) 40.0-44.9, ADULT 05/19/2016 ADY, BOBAN N Ot Z79.899 OTHER CARE HOME (CURRENT) DRUG THERAPY 06/02/2016 ADY, BOBAN N Ot 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 06/02/2016 XAVIER GARSIA Ot E66.01 MORBID (SEVERE) OBESITY DUE TO EXCESS CA 06/02/2016 XAVIER GARSIA Ot E78.5 HYPERLIPIDEMIA, UNSPECIFIED 06/02/2016 XAVIER GARSIA Ot F31.9 BIPOLAR DISORDER, UNSPECIFIED 06/02/2016 XAVIER GARSIA Ot I10 ESSENTIAL (PRIMARY) HYPERTENSION 06/02/2016 XAVIER GARSIA Ot J44.9 CHRONIC OBSTRUCTIVE PULMONARY DISEASE, U 06/02/2016 XAVIER GARSIA Ot K21.9 GASTRO-ESOPHAGEAL REFLUX DISEASE WITHOUT 06/02/2016 XAVIER GARSIA Ot Z68.41 BODY MASS INDEX (BMI) 40.0-44.9, ADULT 06/02/2016 XAVIER GARSIA Ot Z79.899 OTHER OPERATIONS SUPPORT PROFESSIONALS (CURRENT) DRUG THERAPY 06/02/2016 CHRIS WINTER GROCERY DELIVERER Ot 626.8 MENSTRUAL DISORDER NEC 06/02/2016 MAGALLANES DOMYNOR Ot 626.8 MENSTRUAL DISORDER NEC 06/02/2016 LAM MAGALLANES DOA C Ot V72.84 EXAM PRE-OPERATIVE NOS 06/02/2016 MAGALLANESLeon OLVERA MYNOR C Ot V74.8 SCREEN-BACTERIAL DIS NEC 06/02/2016 MAGALLANESLeon OLVERA MYNOR C Ot 626.9 MENSTRUAL DISORDER NOS 06/02/2016 MAGALLANES DO MYNOR C Ot V72.84 EXAM PRE-OPERATIVE NOS 06/02/2016 SONA OLVERA MYNOR C Ot 789.00 ABDOMINAL PAIN, UNSPECIFIED SITE 06/02/2016 ELIZABETH LEYVA GROCERY DELIVERER Ot N63 UNSPECIFIED LUMP IN BREAST 06/02/2016 BEN CASTRO, LIZZIE [place] Ot N32.81 OVERACTIVE BLADDER 06/02/2016 BEN CASTRO, LIZZIE [place] Ot N39.46 MIXED INCONTINENCE 06/02/2016 BEN CASTRO, LIZZIE [place] Ot Z01.818 ENCOUNTER FOR OTHER PREPROCEDURAL EXAMIN 06/02/2016 BEN CASTRO, LIZZIE [place] Ot Z11.2 ENCOUNTER FOR SCREENING FOR OTHER BACTER 06/02/2016 SOFIA CASTRO, ANJUM Ferreira Ot C50.912 MALIGNANT NEOPLASM OF UNSPECIFIED SITE O 06/02/2016 Ot C50.912 MALIGNANT NEOPLASM OF UNSPECIFIED SITE O 06/02/2016 Ot Z01.818 ENCOUNTER FOR OTHER PREPROCEDURAL EXAMIN 06/02/2016 Ot Z11.2 ENCOUNTER FOR SCREENING FOR OTHER BACTER 06/02/2016 DIEZCODY Sharma CLINICAL REIMBURSEMENT SPECIALIST Ot 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 06/02/2016 CODY DIEZ CLINICAL REIMBURSEMENT SPECIALIST Ot E66.01 MORBID (SEVERE) OBESITY DUE TO EXCESS CA 06/02/2016 CODY DIEZP Ot E78.5 HYPERLIPIDEMIA, UNSPECIFIED 06/02/2016 CODY DIEZ CLINICAL REIMBURSEMENT SPECIALIST Ot F31.9 BIPOLAR DISORDER, UNSPECIFIED 06/02/2016 CODY DIEZ CLINICAL REIMBURSEMENT SPECIALIST Ot I10 ESSENTIAL (PRIMARY) HYPERTENSION 06/02/2016 DIEZCODY Sharma CLINICAL REIMBURSEMENT SPECIALIST Ot J44.9 CHRONIC OBSTRUCTIVE PULMONARY DISEASE, U 06/02/2016 CODY DIEZ CLINICAL REIMBURSEMENT SPECIALIST Ot K21.9 GASTRO-ESOPHAGEAL REFLUX DISEASE WITHOUT 06/02/2016 DIEZCODY Sharma CLINICAL REIMBURSEMENT SPECIALIST Ot Z17.0 ESTROGEN RECEPTOR POSITIVE STATUS [ER+] 06/02/2016 DIEZCODY Sharma CLINICAL REIMBURSEMENT SPECIALIST Ot Z68.41 BODY MASS INDEX (BMI) 40.0-44.9, ADULT 06/02/2016 DIEZCODY Sharma CLINICAL REIMBURSEMENT SPECIALIST Ot Z79.899 OTHER OPERATIONS SUPPORT PROFESSIONALS (CURRENT) DRUG THERAPY 06/02/2016 ADY, XAVIER Curiel Ot 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 06/02/2016 XAVIER GARSIA N Ot E66.01 MORBID (SEVERE) OBESITY DUE TO EXCESS CA 06/02/2016 XAVIER GARSIA Ot E78.5 HYPERLIPIDEMIA, UNSPECIFIED 06/02/2016 ADYXAVIER ALCOCER Ot F31.9 BIPOLAR DISORDER, UNSPECIFIED 06/02/2016 ADYXAVIER ALCOCER N Ot I10 ESSENTIAL (PRIMARY) HYPERTENSION 06/02/2016 XAVIER GARSIA N Ot J44.9 CHRONIC OBSTRUCTIVE PULMONARY DISEASE, U 06/02/2016 XAVIER GARSIA N Ot K21.9 GASTRO-ESOPHAGEAL REFLUX DISEASE WITHOUT 06/02/2016 ADYCAT ALCOCERAN N Ot Z68.41 BODY MASS INDEX (BMI) 40.0-44.9, ADULT 06/02/2016 XAVIER GARSIA N Ot Z79.899 OTHER OPERATIONS SUPPORT PROFESSIONALS (CURRENT) DRUG THERAPY 06/17/2016 XAVIER GARSIA N Ot 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 06/17/2016 DAYXAVIER N Ot E66.01 MORBID (SEVERE) OBESITY DUE TO EXCESS CA 06/17/2016 XAVIER GARSIA N Ot E78.5 HYPERLIPIDEMIA, UNSPECIFIED 06/17/2016 XAVIER GARSIA N Ot F31.9 BIPOLAR DISORDER, UNSPECIFIED 06/17/2016 ADYXAVIER ALCOCER N Ot I10 ESSENTIAL (PRIMARY) HYPERTENSION 06/17/2016 XAVIER GARSIA N Ot J44.9 CHRONIC OBSTRUCTIVE PULMONARY DISEASE, U 06/17/2016 XAVIER GARSIA N Ot K21.9 GASTRO-ESOPHAGEAL REFLUX DISEASE WITHOUT 06/17/2016 ADYXAVIER ALCOCER N Ot Z68.41 BODY MASS INDEX (BMI) 40.0-44.9, ADULT 06/17/2016 XAVIER GARSIA N Ot Z79.899 OTHER CARE HOME (CURRENT) DRUG THERAPY 06/18/2016 XAVIER GARSIA N Ot 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 06/18/2016 ADYXAVIER N Ot E66.01 MORBID (SEVERE) OBESITY DUE TO EXCESS CA 06/18/2016 XAVIER GARSIA N Ot E78.5 HYPERLIPIDEMIA, UNSPECIFIED 06/18/2016 ADYXAVIER ALCOCER N Ot F31.9 BIPOLAR DISORDER, UNSPECIFIED 06/18/2016 ADYXAVIER N Ot I10 ESSENTIAL (PRIMARY) HYPERTENSION 06/18/2016 XAVIER GARSIA N Ot J44.9 CHRONIC OBSTRUCTIVE PULMONARY DISEASE, U 06/18/2016 XAVIER GARSIA N Ot K21.9 GASTRO-ESOPHAGEAL REFLUX DISEASE WITHOUT 06/18/2016 XAVIER GARSIA N Ot Z68.41 BODY MASS INDEX (BMI) 40.0-44.9, ADULT 06/18/2016 XAVIER GARSIA N Ot Z79.899 OTHER CARE HOME (CURRENT) DRUG THERAPY 06/18/2016 CHRIS WINTER APRN Ot 626.8 MENSTRUAL DISORDER NEC 06/18/2016 MYNOR MAGALLANES DO Ot 626.8 MENSTRUAL DISORDER NEC 06/18/2016 MYNOR MAGALLANES DO Ot V72.84 EXAM PRE-OPERATIVE NOS 06/18/2016 MYNOR MAGALLANES DO Ot V74.8 SCREEN-BACTERIAL DIS NEC 06/18/2016 MYNOR MAGALLANES DO Reymundo Ot 626.9 MENSTRUAL DISORDER NOS 06/18/2016 MYNOR MAGALLANES DO Reymundo Ot V72.84 EXAM PRE-OPERATIVE NOS 06/18/2016 MYNOR MAGALLANES DO Reymundo Ot 789.00 ABDOMINAL PAIN, UNSPECIFIED SITE 06/18/2016 ELIZABETH LEYVA APRN Ot N63 UNSPECIFIED LUMP IN BREAST 06/18/2016 BEN CASTRO, LIZZIE [place] Ot N32.81 OVERACTIVE BLADDER 06/18/2016 BEN CASTRO, LIZZIE [place] Ot N39.46 MIXED INCONTINENCE 06/18/2016 BEN CASTRO, LIZZIE [place] Ot Z01.818 ENCOUNTER FOR OTHER PREPROCEDURAL EXAMIN 06/18/2016 BEN CASTRO, LIZZIE [place] Ot Z11.2 ENCOUNTER FOR SCREENING FOR OTHER BACTER 06/18/2016 SOFIA CASTRO, ANJUM Ferreira Ot C50.912 MALIGNANT NEOPLASM OF UNSPECIFIED SITE O 06/18/2016 Ot C50.912 MALIGNANT NEOPLASM OF UNSPECIFIED SITE O 06/18/2016 Ot Z01.818 ENCOUNTER FOR OTHER PREPROCEDURAL EXAMIN 06/18/2016 Ot Z11.2 ENCOUNTER FOR SCREENING FOR OTHER BACTER 06/18/2016 CODY DIEZ Ot 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 06/18/2016 CODY DIEZ Ot E66.01 MORBID (SEVERE) OBESITY DUE TO EXCESS CA 06/18/2016 CODY DIEZP Ot E78.5 HYPERLIPIDEMIA, UNSPECIFIED 06/18/2016 CODY DIEZ Ot F31.9 BIPOLAR DISORDER, UNSPECIFIED 06/18/2016 CODY DIEZP Ot I10 ESSENTIAL (PRIMARY) HYPERTENSION 06/18/2016 CODY DIEZ Ot J44.9 CHRONIC OBSTRUCTIVE PULMONARY DISEASE, U 06/18/2016 CODY DIEZ Ot K21.9 GASTRO-ESOPHAGEAL REFLUX DISEASE WITHOUT 06/18/2016 CODY DIEZP Ot Z17.0 ESTROGEN RECEPTOR POSITIVE STATUS [ER+] 06/18/2016 CODY DIEZP Ot Z68.41 BODY MASS INDEX (BMI) 40.0-44.9, ADULT 06/18/2016 CODY DIEZ Ot Z79.899 OTHER CARE HOME (CURRENT) DRUG THERAPY 06/18/2016 ADY XAVIER N Ot 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 06/18/2016 ADY, BOBAN N Ot E66.01 MORBID (SEVERE) OBESITY DUE TO EXCESS CA 06/18/2016 ADY, BOBAN N Ot E78.5 HYPERLIPIDEMIA, UNSPECIFIED 06/18/2016 ADY, XAVIER N Ot F31.9 BIPOLAR DISORDER, UNSPECIFIED 06/18/2016 ADY, BOBAN N Ot I10 ESSENTIAL (PRIMARY) HYPERTENSION 06/18/2016 ADY, CATAN N Ot J44.9 CHRONIC OBSTRUCTIVE PULMONARY DISEASE, U 06/18/2016 ADY, BOBAN N Ot K21.9 GASTRO-ESOPHAGEAL REFLUX DISEASE WITHOUT 06/18/2016 ADY, BOBAN N Ot Z68.41 BODY MASS INDEX (BMI) 40.0-44.9, ADULT 06/18/2016 ADY, XAVIER N Ot Z79.899 OTHER CARE HOME (CURRENT) DRUG THERAPY 06/18/2016 ADYXAVIER N Ot 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 06/18/2016 ADY, BOBAN N Ot E66.01 MORBID (SEVERE) OBESITY DUE TO EXCESS CA 06/18/2016 ADY, BOBSACHI N Ot E78.5 HYPERLIPIDEMIA, UNSPECIFIED 06/18/2016 ADY, BOBSACHI N Ot F31.9 BIPOLAR DISORDER, UNSPECIFIED 06/18/2016 ADY, BOBAN N Ot I10 ESSENTIAL (PRIMARY) HYPERTENSION 06/18/2016 ADY, XAVIER N Ot J44.9 CHRONIC OBSTRUCTIVE PULMONARY DISEASE, U 06/18/2016 ADY, BOBAN N Ot K21.9 GASTRO-ESOPHAGEAL REFLUX DISEASE WITHOUT 06/18/2016 ADY, BOBAN N Ot Z68.41 BODY MASS INDEX (BMI) 40.0-44.9, ADULT 06/18/2016 ADY, BOBAN N Ot Z79.899 OTHER [employer]PER[employer] (CURRENT) DRUG THERAPY 06/24/2016 ADY, XAVIER N Ot 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 06/24/2016 ADY, BOBAN N Ot E66.01 MORBID (SEVERE) OBESITY DUE TO EXCESS CA 06/24/2016 ADY, BOBAN N Ot E78.5 HYPERLIPIDEMIA, UNSPECIFIED 06/24/2016 XAVIER GARSIA N Ot F31.9 BIPOLAR DISORDER, UNSPECIFIED 06/24/2016 XAVIER GARSIA N Ot I10 ESSENTIAL (PRIMARY) HYPERTENSION 06/24/2016 XAVIER GARSIA N Ot J44.9 CHRONIC OBSTRUCTIVE PULMONARY DISEASE, U 06/24/2016 XAVIER GARSIA N Ot K21.9 GASTRO-ESOPHAGEAL REFLUX DISEASE WITHOUT 06/24/2016 XAVIER GARSIA N Ot Z68.41 BODY MASS INDEX (BMI) 40.0-44.9, ADULT 06/24/2016 XAVIER GARSIA N Ot Z79.899 OTHER CARE HOME (CURRENT) DRUG THERAPY 07/29/2016 XAVIER GARSIA Veena Ot 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 07/29/2016 XAVIER GARSIA N Ot E66.01 MORBID (SEVERE) OBESITY DUE TO EXCESS CA 07/29/2016 XAVIER GARSIA N Ot E78.5 HYPERLIPIDEMIA, UNSPECIFIED 07/29/2016 XAVIER GARSIA N Ot F31.9 BIPOLAR DISORDER, UNSPECIFIED 07/29/2016 XAVIER GARSIA N Ot I10 ESSENTIAL (PRIMARY) HYPERTENSION 07/29/2016 XAVIER GARSIA N Ot J44.9 CHRONIC OBSTRUCTIVE PULMONARY DISEASE, U 07/29/2016 XAVIER GARSIA N Ot K21.9 GASTRO-ESOPHAGEAL REFLUX DISEASE WITHOUT 07/29/2016 XAVIER GARSIA N Ot Z68.41 BODY MASS INDEX (BMI) 40.0-44.9, ADULT 07/29/2016 XAVIER GARSIA N Ot Z79.899 OTHER CARE HOME (CURRENT) DRUG THERAPY 08/04/2016 CHRIS WINTER APRN Ot 626.8 MENSTRUAL DISORDER NEC 08/04/2016 MAGALLANESMYNOR Quintero DO Ot 626.8 MENSTRUAL DISORDER NEC 08/04/2016 MYNOR MAGALLANES DO Ot V72.84 EXAM PRE-OPERATIVE NOS 08/04/2016 MYNOR MAGALLANES DO Ot V74.8 SCREEN-BACTERIAL DIS NEC 08/04/2016 MYNOR MAGALLANES DO C Ot 626.9 MENSTRUAL DISORDER NOS 08/04/2016 MYNOR MAGALLANES DO C Ot V72.84 EXAM PRE-OPERATIVE NOS 08/04/2016 MYNOR MAGALLANES DO Ot 789.00 ABDOMINAL PAIN, UNSPECIFIED SITE 08/04/2016 GORDON ELIZABETHDUSTIN [place] APRN Ot N63 UNSPECIFIED LUMP IN BREAST 08/04/2016 BEN CASTRO, LIZZIE [place] Ot N32.81 OVERACTIVE BLADDER 08/04/2016 BEN CASTRO, LIZZIE [place] Ot N39.46 MIXED INCONTINENCE 08/04/2016 BEN CASTRO, LIZZIE [place] Ot Z01.818 ENCOUNTER FOR OTHER PREPROCEDURAL EXAMIN 08/04/2016 BEN CASTRO, LIZZIE [place] Ot Z11.2 ENCOUNTER FOR SCREENING FOR OTHER BACTER 08/04/2016 SOFIA CASTRO, ANJUM Ferreira Ot C50.912 MALIGNANT NEOPLASM OF UNSPECIFIED SITE O 08/04/2016 Ot C50.912 MALIGNANT NEOPLASM OF UNSPECIFIED SITE O 08/04/2016 Ot Z01.818 ENCOUNTER FOR OTHER PREPROCEDURAL EXAMIN 08/04/2016 Ot Z11.2 ENCOUNTER FOR SCREENING FOR OTHER BACTER 08/04/2016 CODY DIEZP Ot 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 08/04/2016 CODY DIEZ CLINICAL REIMBURSEMENT SPECIALIST Ot E66.01 MORBID (SEVERE) OBESITY DUE TO EXCESS CA 08/04/2016 CODY DIEZP Ot E78.5 HYPERLIPIDEMIA, UNSPECIFIED 08/04/2016 CODY DIEZ CLINICAL REIMBURSEMENT SPECIALIST Ot F31.9 BIPOLAR DISORDER, UNSPECIFIED 08/04/2016 CODY DIEZ CLINICAL REIMBURSEMENT SPECIALIST Ot I10 ESSENTIAL (PRIMARY) HYPERTENSION 08/04/2016 CODY DIEZ CLINICAL REIMBURSEMENT SPECIALIST Ot J44.9 CHRONIC OBSTRUCTIVE PULMONARY DISEASE, U 08/04/2016 CODY DIEZ CLINICAL REIMBURSEMENT SPECIALIST Ot K21.9 GASTRO-ESOPHAGEAL REFLUX DISEASE WITHOUT 08/04/2016 CODY DIEZ CLINICAL REIMBURSEMENT SPECIALIST Ot Z17.0 ESTROGEN RECEPTOR POSITIVE STATUS [ER+] 08/04/2016 CODY DIEZ CLINICAL REIMBURSEMENT SPECIALIST Ot Z68.41 BODY MASS INDEX (BMI) 40.0-44.9, ADULT 08/04/2016 CODY DIEZ CLINICAL REIMBURSEMENT SPECIALIST Ot Z79.899 OTHER CARE HOME (CURRENT) DRUG THERAPY 08/04/2016 XAVIER GARSIA Ot 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 08/04/2016 XAVIER GARSIA Ot E66.01 MORBID (SEVERE) OBESITY DUE TO EXCESS CA 08/04/2016 XAVIER GARSIA Ot E78.5 HYPERLIPIDEMIA, UNSPECIFIED 08/04/2016 XAVIER GARSIA Ot F31.9 BIPOLAR DISORDER, UNSPECIFIED 08/04/2016 XAVIER GARSIA Ot I10 ESSENTIAL (PRIMARY) HYPERTENSION 08/04/2016 XAVIER GARSIA Ot J44.9 CHRONIC OBSTRUCTIVE PULMONARY DISEASE, U 08/04/2016 XAVIER GARSIA Ot K21.9 GASTRO-ESOPHAGEAL REFLUX DISEASE WITHOUT 08/04/2016 XAVIER GARSIA Ot Z68.41 BODY MASS INDEX (BMI) 40.0-44.9, ADULT 08/04/2016 XAVIER GARSIA Ot Z79.899 OTHER OPERATIONS SUPPORT PROFESSIONALS (CURRENT) DRUG THERAPY 08/04/2016 CODY DIEZ CLINICAL REIMBURSEMENT SPECIALIST Ot 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 08/04/2016 CODY DIEZP Ot Z12.31 ENCNTR SCREEN MAMMOGRAM FOR MALIGNANT NE 08/06/2016 CODY DIEZ CLINICAL REIMBURSEMENT SPECIALIST Ot 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 08/06/2016 CODY DIEZ CLINICAL REIMBURSEMENT SPECIALIST Ot Z12.31 ENCNTR SCREEN MAMMOGRAM FOR MALIGNANT NE 08/06/2016 CODY DIEZ CLINICAL REIMBURSEMENT SPECIALIST Ot 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 08/06/2016 CODY DIEZ CLINICAL REIMBURSEMENT SPECIALIST Ot Z12.31 ENCNTR SCREEN MAMMOGRAM FOR MALIGNANT NE 08/06/2016 CODY DIEZ CLINICAL REIMBURSEMENT SPECIALIST Ot 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 08/06/2016 CODY DIEZ CLINICAL REIMBURSEMENT SPECIALIST Ot Z12.31 ENCNTR SCREEN MAMMOGRAM FOR MALIGNANT NE 08/07/2016 CODY DIEZ CLINICAL REIMBURSEMENT SPECIALIST Ot 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 08/07/2016 CODY DIEZ CLINICAL REIMBURSEMENT SPECIALIST Ot 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 08/07/2016 CODY DIEZP Ot Z12.31 ENCNTR SCREEN MAMMOGRAM FOR MALIGNANT NE 08/07/2016 CODY DIEZP Ot Z79.818 LNG TRM (CRNT) USE OF AGNT AFF ESTROG RE 08/07/2016 CODY DIEZP Ot Z90.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, BILATERAL 08/31/2016 CODY DIEZ CLINICAL REIMBURSEMENT SPECIALIST Ot 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 08/31/2016 CODY DIEZ CLINICAL REIMBURSEMENT SPECIALIST Ot 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 08/31/2016 CODY DIEZ CLINICAL REIMBURSEMENT SPECIALIST Ot Z12.31 ENCNTR SCREEN MAMMOGRAM FOR MALIGNANT NE 08/31/2016 CODY DIEZ Ot Z79.818 LNG TRM (CRNT) USE OF AGNT AFF ESTROG RE 08/31/2016 CODY DIEZ CLINICAL REIMBURSEMENT SPECIALIST Ot Z90.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, BILATERAL 09/07/2016 CODY DIEZ CLINICAL REIMBURSEMENT SPECIALIST Ot 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 09/07/2016 CODY DIEZ CLINICAL REIMBURSEMENT SPECIALIST Ot 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 09/07/2016 CODY DIEZ CLINICAL REIMBURSEMENT SPECIALIST Ot Z12.31 ENCNTR SCREEN MAMMOGRAM FOR MALIGNANT NE 09/07/2016 CODY DIEZP Ot Z79.818 LNG TRM (CRNT) USE OF AGNT AFF ESTROG RE 09/07/2016 CODY DIEZ CLINICAL REIMBURSEMENT SPECIALIST Ot Z90.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, BILATERAL 09/10/2016 CODY DIEZ CLINICAL REIMBURSEMENT SPECIALIST Ot 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 09/10/2016 CODY DIEZ CLINICAL REIMBURSEMENT SPECIALIST Ot 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 09/10/2016 CODY DIEZ CLINICAL REIMBURSEMENT SPECIALIST Ot Z12.31 ENCNTR SCREEN MAMMOGRAM FOR MALIGNANT NE 09/10/2016 CODY DIEZ Ot Z79.818 LNG TRM (CRNT) USE OF AGNT AFF ESTROG RE 09/10/2016 CODY DIEZ CLINICAL REIMBURSEMENT SPECIALIST Ot Z90.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, BILATERAL 09/10/2016 CHRIS WINTER APRN Ot 626.8 MENSTRUAL DISORDER NEC 09/10/2016 MYNOR MAGALLANES DO Ot 626.8 MENSTRUAL DISORDER NEC 09/10/2016 MYNOR MAGALLANES DO Ot V72.84 EXAM PRE-OPERATIVE NOS 09/10/2016 MYNOR MAGALLANES DO Ot V74.8 SCREEN-BACTERIAL DIS NEC 09/10/2016 MYNOR MAGALLANES DO Ot 626.9 MENSTRUAL DISORDER NOS 09/10/2016 MYNOR MAGALLANES DO Ot V72.84 EXAM PRE-OPERATIVE NOS 09/10/2016 MYNOR MAGALLANES DO Ot 789.00 ABDOMINAL PAIN, UNSPECIFIED SITE 09/10/2016 ELIZAEBTH LEYVA APRN Ot N63 UNSPECIFIED LUMP IN BREAST 09/10/2016 BEN CASTRO, LIZZIE [place] Ot N32.81 OVERACTIVE BLADDER 09/10/2016 BEN CASTRO, LIZZIE [place] Ot N39.46 MIXED INCONTINENCE 09/10/2016 BEN CASTRO, LIZZIE [place] Ot Z01.818 ENCOUNTER FOR OTHER PREPROCEDURAL EXAMIN 09/10/2016 BEN CASTRO, LIZZIE [place] Ot Z11.2 ENCOUNTER FOR SCREENING FOR OTHER BACTER 09/10/2016 SOFIA CASTRO, ANJUM Ferreira Ot C50.912 MALIGNANT NEOPLASM OF UNSPECIFIED SITE O 09/10/2016 Ot C50.912 MALIGNANT NEOPLASM OF UNSPECIFIED SITE O 09/10/2016 Ot Z01.818 ENCOUNTER FOR OTHER PREPROCEDURAL EXAMIN 09/10/2016 Ot Z11.2 ENCOUNTER FOR SCREENING FOR OTHER BACTER 09/10/2016 CODY DIEZP Ot 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 09/10/2016 CODY DIEZ Ot E66.01 MORBID (SEVERE) OBESITY DUE TO EXCESS CA 09/10/2016 CODY DIEZP Ot E78.5 HYPERLIPIDEMIA, UNSPECIFIED 09/10/2016 CODY DIEZP Ot F31.9 BIPOLAR DISORDER, UNSPECIFIED 09/10/2016 CODY DIEZP Ot I10 ESSENTIAL (PRIMARY) HYPERTENSION 09/10/2016 CODY DIEZP Ot J44.9 CHRONIC OBSTRUCTIVE PULMONARY DISEASE, U 09/10/2016 CODY DIEZP Ot K21.9 GASTRO-ESOPHAGEAL REFLUX DISEASE WITHOUT 09/10/2016 CODY DIEZP Ot Z17.0 ESTROGEN RECEPTOR POSITIVE STATUS [ER+] 09/10/2016 CODY DIEZP Ot Z68.41 BODY MASS INDEX (BMI) 40.0-44.9, ADULT 09/10/2016 CODY DIEZP Ot Z79.899 OTHER CARE HOME (CURRENT) DRUG THERAPY 09/10/2016 XAVIER GARSIA N Ot 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 09/10/2016 XAVIER GARSIA Veena Ot E66.01 MORBID (SEVERE) OBESITY DUE TO EXCESS CA 09/10/2016 XAVIER GARSIA N Ot E78.5 HYPERLIPIDEMIA, UNSPECIFIED 09/10/2016 XAVIER GARSIA N Ot F31.9 BIPOLAR DISORDER, UNSPECIFIED 09/10/2016 XAVIER GARSIA N Ot I10 ESSENTIAL (PRIMARY) HYPERTENSION 09/10/2016 XAVIER GARSIA Veena Ot J44.9 CHRONIC OBSTRUCTIVE PULMONARY DISEASE, U 09/10/2016 XAVIER GARSIA N Ot K21.9 GASTRO-ESOPHAGEAL REFLUX DISEASE WITHOUT 09/10/2016 XAVIER GARSIA Veena Ot Z68.41 BODY MASS INDEX (BMI) 40.0-44.9, ADULT 09/10/2016 ADYXAVIER ALCOCER N Ot Z79.899 OTHER OPERATIONS SUPPORT PROFESSIONALS (CURRENT) DRUG THERAPY 09/10/2016 CODY DIEZ CLINICAL REIMBURSEMENT SPECIALIST Ot 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 09/10/2016 CODY DIEZ CLINICAL REIMBURSEMENT SPECIALIST Ot 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 09/10/2016 CODY DIEZ Ot Z12.31 ENCNTR SCREEN MAMMOGRAM FOR MALIGNANT NE 09/10/2016 CODY DIEZP Ot Z79.818 LNG TRM (CRNT) USE OF AGNT AFF ESTROG RE 09/10/2016 CODY DIEZP Ot Z90.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, BILATERAL 09/11/2016 XAVIER GARSIA Veena Ot 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 09/11/2016 XAVIER GARSIA Veena Ot E66.01 MORBID (SEVERE) OBESITY DUE TO EXCESS CA 09/11/2016 XAVIER GARSIA Veena Ot E78.5 HYPERLIPIDEMIA, UNSPECIFIED 09/11/2016 XAVIER GARSIA Veena Ot F31.9 BIPOLAR DISORDER, UNSPECIFIED 09/11/2016 XAVIER GARSIA N Ot I10 ESSENTIAL (PRIMARY) HYPERTENSION 09/11/2016 XAVIER GARSIA Veena Ot J44.9 CHRONIC OBSTRUCTIVE PULMONARY DISEASE, U 09/11/2016 XAVIER GARSIA N Ot K21.9 GASTRO-ESOPHAGEAL REFLUX DISEASE WITHOUT 09/11/2016 XAVIRE GARSIA Veena Ot Z68.41 BODY MASS INDEX (BMI) 40.0-44.9, ADULT 09/11/2016 XAVIER GARSIA Veena Ot Z79.899 OTHER CARE HOME (CURRENT) DRUG THERAPY 09/18/2016 ADY CATSACHI Veena Ot 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 09/18/2016 ADY CATSACHI Veena Ot E66.01 MORBID (SEVERE) OBESITY DUE TO EXCESS CA 09/18/2016 ADY CATSACHI N Ot E78.5 HYPERLIPIDEMIA, UNSPECIFIED 09/18/2016 ADY, CATSACHI Veena Ot F31.9 BIPOLAR DISORDER, UNSPECIFIED 09/18/2016 ADYXAVIER Ot I10 ESSENTIAL (PRIMARY) HYPERTENSION 09/18/2016 ADYXAVIER Ot J44.9 CHRONIC OBSTRUCTIVE PULMONARY DISEASE, U 09/18/2016 ADY CATSACHI Veena Ot K21.9 GASTRO-ESOPHAGEAL REFLUX DISEASE WITHOUT 09/18/2016 ADY CATSACHI Veena Ot Z68.41 BODY MASS INDEX (BMI) 40.0-44.9, ADULT 09/18/2016 XAVIER GARSIA Veena Ot Z79.899 OTHER CARE HOME (CURRENT) DRUG THERAPY 09/27/2016 RADHA GEORGES MD Ot I10 ESSENTIAL (PRIMARY) HYPERTENSION 09/27/2016 RADHA GEORGES MD Ot J44.9 CHRONIC OBSTRUCTIVE PULMONARY DISEASE, U 09/27/2016 RADHA GEORGES MD Ot M25.561 PAIN IN RIGHT KNEE 09/27/2016 RADHA GEORGES MD Ot W17.89XA OTHER FALL FROM ONE LEVEL TO ANOTHER, IN 09/27/2016 RADHA GEORGES MD Ot Y92.[address] 09/27/2016 RADHA GEORGES MD Ot Z87.39 PERSONAL HISTORY OF DISEASES OF THE MS S 10/26/2016 DAYXAVIER Ot 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 10/26/2016 ADY CATSACHI N Ot E66.01 MORBID (SEVERE) OBESITY DUE TO EXCESS CA 10/26/2016 ADYXAVIER N Ot E78.5 HYPERLIPIDEMIA, UNSPECIFIED 10/26/2016 ADYXAVIER Ot F31.9 BIPOLAR DISORDER, UNSPECIFIED 10/26/2016 ADYXAVIER ALCOCER N Ot I10 ESSENTIAL (PRIMARY) HYPERTENSION 10/26/2016 XAVIER GARSIA N Ot J44.9 CHRONIC OBSTRUCTIVE PULMONARY DISEASE, U 10/26/2016 XAVIER GARSIA N Ot K21.9 GASTRO-ESOPHAGEAL REFLUX DISEASE WITHOUT 10/26/2016 XAVIER GARSIA N Ot Z68.41 BODY MASS INDEX (BMI) 40.0-44.9, ADULT 10/26/2016 XAVIER GARSIA N Ot Z79.899 OTHER CARE HOME (CURRENT) DRUG THERAPY 10/26/2016 XAVIER GARSIA N Ot 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 10/26/2016 XAVIER GARSIA N Ot E66.01 MORBID (SEVERE) OBESITY DUE TO EXCESS CA 10/26/2016 XAVIER GARSIA N Ot E78.5 HYPERLIPIDEMIA, UNSPECIFIED 10/26/2016 XAVIER GARSIA N Ot F31.9 BIPOLAR DISORDER, UNSPECIFIED 10/26/2016 XAVIER GARSIA N Ot I10 ESSENTIAL (PRIMARY) HYPERTENSION 10/26/2016 XAVIER GARSIA N Ot J44.9 CHRONIC OBSTRUCTIVE PULMONARY DISEASE, U 10/26/2016 XAVIER GARSIA N Ot K21.9 GASTRO-ESOPHAGEAL REFLUX DISEASE WITHOUT 10/26/2016 XAVIER GARSIA N Ot Z68.41 BODY MASS INDEX (BMI) 40.0-44.9, ADULT 10/26/2016 XAVIER GARSIA N Ot Z79.899 OTHER OPERATIONS SUPPORT PROFESSIONALS (CURRENT) DRUG THERAPY 10/26/2016 CHRIS WINTER GROCERY DELIVERER Ot 626.8 MENSTRUAL DISORDER NEC 10/26/2016 MAGALLANES DO MYNOR C Ot 626.8 MENSTRUAL DISORDER NEC 10/26/2016 MAGALLANES DO, MYNOR C Ot V72.84 EXAM PRE-OPERATIVE NOS 10/26/2016 MAGALLANES DO, MYNOR C Ot V74.8 SCREEN-BACTERIAL DIS NEC 10/26/2016 MAGALLANES DO MYNOR C Ot 626.9 MENSTRUAL DISORDER NOS 10/26/2016 MAGALLANES DO, MYNOR C Ot V72.84 EXAM PRE-OPERATIVE NOS 10/26/2016 MAGALLANES DO, MYNOR C Ot 789.00 ABDOMINAL PAIN, UNSPECIFIED SITE 10/26/2016 LEYVA, ELIZABETH A GROCERY DELIVERER Ot N63 UNSPECIFIED LUMP IN BREAST 10/26/2016 BEN CASTRO, LIZZIE [place] Ot N32.81 OVERACTIVE BLADDER 10/26/2016 BEN CASTRO, LIZZIE [place] Ot N39.46 MIXED INCONTINENCE 10/26/2016 BEN CASTRO, LIZZIE [place] Ot Z01.818 ENCOUNTER FOR OTHER PREPROCEDURAL EXAMIN 10/26/2016 BEN CASTRO, LIZZIE [place] Ot Z11.2 ENCOUNTER FOR SCREENING FOR OTHER BACTER 10/26/2016 SOFIA CASTRO, ANJUM Ferreira Ot C50.912 MALIGNANT NEOPLASM OF UNSPECIFIED SITE O 10/26/2016 Ot C50.912 MALIGNANT NEOPLASM OF UNSPECIFIED SITE O 10/26/2016 Ot Z01.818 ENCOUNTER FOR OTHER PREPROCEDURAL EXAMIN 10/26/2016 Ot Z11.2 ENCOUNTER FOR SCREENING FOR OTHER BACTER 10/26/2016 CODY DIEZP Ot 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 10/26/2016 CODY DIEZ Ot E66.01 MORBID (SEVERE) OBESITY DUE TO EXCESS CA 10/26/2016 CODY DIEZP Ot E78.5 HYPERLIPIDEMIA, UNSPECIFIED 10/26/2016 CODY DIEZP Ot F31.9 BIPOLAR DISORDER, UNSPECIFIED 10/26/2016 CODY DIEZ CLINICAL REIMBURSEMENT SPECIALIST Ot I10 ESSENTIAL (PRIMARY) HYPERTENSION 10/26/2016 OCDY DIEZ CLINICAL REIMBURSEMENT SPECIALIST Ot J44.9 CHRONIC OBSTRUCTIVE PULMONARY DISEASE, U 10/26/2016 CODY DIEZ CLINICAL REIMBURSEMENT SPECIALIST Ot K21.9 GASTRO-ESOPHAGEAL REFLUX DISEASE WITHOUT 10/26/2016 CODY DIEZ CLINICAL REIMBURSEMENT SPECIALIST Ot Z17.0 ESTROGEN RECEPTOR POSITIVE STATUS [ER+] 10/26/2016 CODY DIEZ CLINICAL REIMBURSEMENT SPECIALIST Ot Z68.41 BODY MASS INDEX (BMI) 40.0-44.9, ADULT 10/26/2016 CODY DIEZ CLINICAL REIMBURSEMENT SPECIALIST Ot Z79.899 OTHER CARE HOME (CURRENT) DRUG THERAPY 10/26/2016 XAVIER GARSIA Ot 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 10/26/2016 XAVIER GARSIA Ot E66.01 MORBID (SEVERE) OBESITY DUE TO EXCESS CA 10/26/2016 XAVIER GARSIA Ot E78.5 HYPERLIPIDEMIA, UNSPECIFIED 10/26/2016 XAVIER GARSIA Ot F31.9 BIPOLAR DISORDER, UNSPECIFIED 10/26/2016 XAVIER GARSIA Ot I10 ESSENTIAL (PRIMARY) HYPERTENSION 10/26/2016 XAVIER GARSIA Ot J44.9 CHRONIC OBSTRUCTIVE PULMONARY DISEASE, U 10/26/2016 XAVIER GARSIA Ot K21.9 GASTRO-ESOPHAGEAL REFLUX DISEASE WITHOUT 10/26/2016 XAVIER GARSIA Ot Z68.41 BODY MASS INDEX (BMI) 40.0-44.9, ADULT 10/26/2016 XAVIER GARSIA Ot Z79.899 OTHER OPERATIONS SUPPORT PROFESSIONALS (CURRENT) DRUG THERAPY 10/26/2016 CODY DIEZ CLINICAL REIMBURSEMENT SPECIALIST Ot 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 10/26/2016 CODY DIEZ CLINICAL REIMBURSEMENT SPECIALIST Ot 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 10/26/2016 CODY DIEZP Ot Z12.31 ENCNTR SCREEN MAMMOGRAM FOR MALIGNANT NE 10/26/2016 CODY DIEZ CLINICAL REIMBURSEMENT SPECIALIST Ot Z79.818 LNG TRM (CRNT) USE OF AGNT AFF ESTROG RE 10/26/2016 CODY DIEZ CLINICAL REIMBURSEMENT SPECIALIST Ot Z90.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, BILATERAL 11/27/2016 CHRIS WINTER GROCERY DELIVERER Ot 626.8 MENSTRUAL DISORDER NEC 11/27/2016 MYNOR MAGALLANES DO Ot 626.8 MENSTRUAL DISORDER NEC 11/27/2016 MYNOR MAGALLANES DO Ot V72.84 EXAM PRE-OPERATIVE NOS 11/27/2016 MYNOR MAGALLANES DO Ot V74.8 SCREEN-BACTERIAL DIS NEC 11/27/2016 MYNOR MAGALLANES DO C Ot 626.9 MENSTRUAL DISORDER NOS 11/27/2016 MYNOR MAGALLANES DO C Ot V72.84 EXAM PRE-OPERATIVE NOS 11/27/2016 MYNOR MAGALLANES DO C Ot 789.00 ABDOMINAL PAIN, UNSPECIFIED SITE 11/27/2016 ELIZABETH LEYVA GROCERY DELIVERER Ot N63 UNSPECIFIED LUMP IN BREAST 11/27/2016 BEN CASTRO, LIZZIE [place] Ot N32.81 OVERACTIVE BLADDER 11/27/2016 BEN CASTRO, LIZZIE [place] Ot N39.46 MIXED INCONTINENCE 11/27/2016 BEN CASTRO, LIZZIE [place] Ot Z01.818 ENCOUNTER FOR OTHER PREPROCEDURAL EXAMIN 11/27/2016 BEN CASTRO, LIZZIE [place] Ot Z11.2 ENCOUNTER FOR SCREENING FOR OTHER BACTER 11/27/2016 SOFIA CASTRO, ANJUM Ferreira Ot C50.912 MALIGNANT NEOPLASM OF UNSPECIFIED SITE O 11/27/2016 Ot C50.912 MALIGNANT NEOPLASM OF UNSPECIFIED SITE O 11/27/2016 Ot Z01.818 ENCOUNTER FOR OTHER PREPROCEDURAL EXAMIN 11/27/2016 Ot Z11.2 ENCOUNTER FOR SCREENING FOR OTHER BACTER 11/27/2016 CODY DIEZ Ot 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 11/27/2016 CODY DIEZ Ot E66.01 MORBID (SEVERE) OBESITY DUE TO EXCESS CA 11/27/2016 CODY DIEZP Ot E78.5 HYPERLIPIDEMIA, UNSPECIFIED 11/27/2016 CODY DIEZP Ot F31.9 BIPOLAR DISORDER, UNSPECIFIED 11/27/2016 CODY DIEZP Ot I10 ESSENTIAL (PRIMARY) HYPERTENSION 11/27/2016 CODY DIEZ Ot J44.9 CHRONIC OBSTRUCTIVE PULMONARY DISEASE, U 11/27/2016 CODY DIEZ Ot K21.9 GASTRO-ESOPHAGEAL REFLUX DISEASE WITHOUT 11/27/2016 CODY DIEZP Ot Z17.0 ESTROGEN RECEPTOR POSITIVE STATUS [ER+] 11/27/2016 CODY DIEZP Ot Z68.41 BODY MASS INDEX (BMI) 40.0-44.9, ADULT 11/27/2016 CODY DIEZP Ot Z79.899 OTHER OPERATIONS SUPPORT PROFESSIONALS (CURRENT) DRUG THERAPY 11/27/2016 CODY DIEZP Ot 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 11/27/2016 CODY DIEZ Ot 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 11/27/2016 CODY DIEZ Ot Z12.31 ENCNTR SCREEN MAMMOGRAM FOR MALIGNANT NE 11/27/2016 CODY DIEZP Ot Z79.818 LNG TRM (CRNT) USE OF AGNT AFF ESTROG RE 11/27/2016 CODY DIEZ Ot Z90.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, BILATERAL 11/27/2016 ADYXAVIER N Ot 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 11/27/2016 ADY, BOBAN N Ot E66.01 MORBID (SEVERE) OBESITY DUE TO EXCESS CA 11/27/2016 ADY, BOBAN N Ot E78.5 HYPERLIPIDEMIA, UNSPECIFIED 11/27/2016 ADY, BOBAN N Ot F31.9 BIPOLAR DISORDER, UNSPECIFIED 11/27/2016 ADY, BOBAN N Ot I10 ESSENTIAL (PRIMARY) HYPERTENSION 11/27/2016 ADY, BOBAN N Ot J44.9 CHRONIC OBSTRUCTIVE PULMONARY DISEASE, U 11/27/2016 ADY, BOBAN N Ot K21.9 GASTRO-ESOPHAGEAL REFLUX DISEASE WITHOUT 11/27/2016 ADY, BOBAN N Ot Z68.41 BODY MASS INDEX (BMI) 40.0-44.9, ADULT 11/27/2016 ADY, BOBAN N Ot Z79.899 OTHER CARE HOME (CURRENT) DRUG THERAPY 12/02/2016 ADY BOBAN N Ot 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 12/02/2016 ADY, BOBAN N Ot E66.01 MORBID (SEVERE) OBESITY DUE TO EXCESS CA 12/02/2016 ADY, BOBAN N Ot E78.5 HYPERLIPIDEMIA, UNSPECIFIED 12/02/2016 ADY, BOBAN N Ot F31.9 BIPOLAR DISORDER, UNSPECIFIED 12/02/2016 ADY, BOBAN N Ot I10 ESSENTIAL (PRIMARY) HYPERTENSION 12/02/2016 ADY, BOBAN N Ot J44.9 CHRONIC OBSTRUCTIVE PULMONARY DISEASE, U 12/02/2016 ADY, BOBAN N Ot K21.9 GASTRO-ESOPHAGEAL REFLUX DISEASE WITHOUT 12/02/2016 ADY, BOBAN N Ot Z68.41 BODY MASS INDEX (BMI) 40.0-44.9, ADULT 12/02/2016 ADY, BOBAN N Ot Z79.899 OTHER CARE HOME (CURRENT) DRUG THERAPY 01/01/2017 CHRIS WINTER APRN Ot 626.8 MENSTRUAL DISORDER NEC 01/01/2017 MYNOR MAGALLANES DO Ot 626.8 MENSTRUAL DISORDER NEC 01/01/2017 MYNOR MAGALLANES DO Ot V72.84 EXAM PRE-OPERATIVE NOS 01/01/2017 MYNOR MAGALLANES DO Ot V74.8 SCREEN-BACTERIAL DIS NEC 01/01/2017 MYNOR MAGALLANES DO Ot 626.9 MENSTRUAL DISORDER NOS 01/01/2017 MYNOR MAGALLANES DO Ot V72.84 EXAM PRE-OPERATIVE NOS 01/01/2017 MYNOR MAGALLANES DO Ot 789.00 ABDOMINAL PAIN, UNSPECIFIED SITE 01/01/2017 ELIZABETH LEYVA APRN Ot N63 UNSPECIFIED LUMP IN BREAST 01/01/2017 BEN CASTRO, LIZZIE [place] Ot N32.81 OVERACTIVE BLADDER 01/01/2017 BEN CASTRO, LIZZIE [place] Ot N39.46 MIXED INCONTINENCE 01/01/2017 BEN CASTRO, LIZZIE [place] Ot Z01.818 ENCOUNTER FOR OTHER PREPROCEDURAL EXAMIN 01/01/2017 BEN CASTRO, LIZZIE [place] Ot Z11.2 ENCOUNTER FOR SCREENING FOR OTHER BACTER 01/01/2017 SOFIA CASTRO, ANJUM Ferreira Ot C50.912 MALIGNANT NEOPLASM OF UNSPECIFIED SITE O 01/01/2017 Ot C50.912 MALIGNANT NEOPLASM OF UNSPECIFIED SITE O 01/01/2017 Ot Z01.818 ENCOUNTER FOR OTHER PREPROCEDURAL EXAMIN 01/01/2017 Ot Z11.2 ENCOUNTER FOR SCREENING FOR OTHER BACTER 01/01/2017 CODY DIEZ Ot 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 01/01/2017 CODY DIEZ Ot E66.01 MORBID (SEVERE) OBESITY DUE TO EXCESS CA 01/01/2017 CODY DIEZ Ot E78.5 HYPERLIPIDEMIA, UNSPECIFIED 01/01/2017 CODY DIEZ Ot F31.9 BIPOLAR DISORDER, UNSPECIFIED 01/01/2017 CODY DIEZ Ot I10 ESSENTIAL (PRIMARY) HYPERTENSION 01/01/2017 CODY DIEZ Ot J44.9 CHRONIC OBSTRUCTIVE PULMONARY DISEASE, U 01/01/2017 CODY DIEZ Ot K21.9 GASTRO-ESOPHAGEAL REFLUX DISEASE WITHOUT 01/01/2017 CODY DIEZ Ot Z17.0 ESTROGEN RECEPTOR POSITIVE STATUS [ER+] 01/01/2017 CODY DIEZ Ot Z68.41 BODY MASS INDEX (BMI) 40.0-44.9, ADULT 01/01/2017 CODY DIEZ CLINICAL REIMBURSEMENT SPECIALIST Ot Z79.899 OTHER CARE HOME (CURRENT) DRUG THERAPY 01/01/2017 CODY DIEZ CLINICAL REIMBURSEMENT SPECIALIST Ot 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 01/01/2017 CODY DIEZ CLINICAL REIMBURSEMENT SPECIALIST Ot 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 01/01/2017 CODY DIEZP Ot Z12.31 ENCNTR SCREEN MAMMOGRAM FOR MALIGNANT NE 01/01/2017 CODY DIEZ CLINICAL REIMBURSEMENT SPECIALIST Ot Z79.818 LNG TRM (CRNT) USE OF AGNT AFF ESTROG RE 01/01/2017 CODY DIEZ CLINICAL REIMBURSEMENT SPECIALIST Ot Z90.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, BILATERAL 01/01/2017 XAVIER GARSIA Ot 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 01/01/2017 XAVIER GARSIA Ot E66.01 MORBID (SEVERE) OBESITY DUE TO EXCESS CA 01/01/2017 XAVIER GARSIA Ot E78.5 HYPERLIPIDEMIA, UNSPECIFIED 01/01/2017 XAVIER GARSIA Ot F31.9 BIPOLAR DISORDER, UNSPECIFIED 01/01/2017 XAVIER GARSIA Ot I10 ESSENTIAL (PRIMARY) HYPERTENSION 01/01/2017 XAVIER GARSIA Ot J44.9 CHRONIC OBSTRUCTIVE PULMONARY DISEASE, U 01/01/2017 XAVIER GARSIA Ot K21.9 GASTRO-ESOPHAGEAL REFLUX DISEASE WITHOUT 01/01/2017 XAVIER GARSIA Ot Z68.41 BODY MASS INDEX (BMI) 40.0-44.9, ADULT 01/01/2017 XAVIER GARSIA Ot Z79.899 OTHER OPERATIONS SUPPORT PROFESSIONALS (CURRENT) DRUG THERAPY 01/27/2017 CHRIS WINTER APRN Ot 626.8 MENSTRUAL DISORDER NEC 01/27/2017 MAGALLANES DOMYNOR C Ot 626.8 MENSTRUAL DISORDER NEC 01/27/2017 MYNOR MAGALLANES DO C Ot V72.84 EXAM PRE-OPERATIVE NOS 01/27/2017 SONA DO MYNOR C Ot V74.8 SCREEN-BACTERIAL DIS NEC 01/27/2017 SONA OLVERA MYNOR C Ot 626.9 MENSTRUAL DISORDER NOS 01/27/2017 SONA OLVERA MYNOR C Ot V72.84 EXAM PRE-OPERATIVE NOS 01/27/2017 MYNOR MAGALLANES DO Ot 789.00 ABDOMINAL PAIN, UNSPECIFIED SITE 01/27/2017 ELIZABETH LEYVA APRN Ot N63 UNSPECIFIED LUMP IN BREAST 01/27/2017 BEN CASTRO, LIZZIE [place] Ot N32.81 OVERACTIVE BLADDER 01/27/2017 BEN CASTRO, LIZZIE [place] Ot N39.46 MIXED INCONTINENCE 01/27/2017 BEN CASTRO, LIZZIE [place] Ot Z01.818 ENCOUNTER FOR OTHER PREPROCEDURAL EXAMIN 01/27/2017 BEN CASTRO, LIZZIE [place] Ot Z11.2 ENCOUNTER FOR SCREENING FOR OTHER BACTER 01/27/2017 SOFIA CASTRO, ANJUM Ferreira Ot C50.912 MALIGNANT NEOPLASM OF UNSPECIFIED SITE O 01/27/2017 Ot C50.912 MALIGNANT NEOPLASM OF UNSPECIFIED SITE O 01/27/2017 Ot Z01.818 ENCOUNTER FOR OTHER PREPROCEDURAL EXAMIN 01/27/2017 Ot Z11.2 ENCOUNTER FOR SCREENING FOR OTHER BACTER 01/27/2017 CODY DIEZ Ot 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 01/27/2017 CODY DIEZ Ot E66.01 MORBID (SEVERE) OBESITY DUE TO EXCESS CA 01/27/2017 CODY DIEZ Ot E78.5 HYPERLIPIDEMIA, UNSPECIFIED 01/27/2017 CODY DIEZP Ot F31.9 BIPOLAR DISORDER, UNSPECIFIED 01/27/2017 CODY DIEZP Ot I10 ESSENTIAL (PRIMARY) HYPERTENSION 01/27/2017 CODY DIEZP Ot J44.9 CHRONIC OBSTRUCTIVE PULMONARY DISEASE, U 01/27/2017 CODY DIEZP Ot K21.9 GASTRO-ESOPHAGEAL REFLUX DISEASE WITHOUT 01/27/2017 CODY DIEZP Ot Z17.0 ESTROGEN RECEPTOR POSITIVE STATUS [ER+] 01/27/2017 CODY DIEZP Ot Z68.41 BODY MASS INDEX (BMI) 40.0-44.9, ADULT 01/27/2017 CODY DIEZP Ot Z79.899 OTHER CARE HOME (CURRENT) DRUG THERAPY 01/27/2017 CODY DIEZP Ot 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 01/27/2017 RGCODY CLINICAL REIMBURSEMENT SPECIALIST Ot 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 01/27/2017 DIEZCODY Sharma CLINICAL REIMBURSEMENT SPECIALIST Ot Z12.31 ENCNTR SCREEN MAMMOGRAM FOR MALIGNANT NE 01/27/2017 CODY DIEZ CLINICAL REIMBURSEMENT SPECIALIST Ot Z79.818 LNG TRM (CRNT) USE OF AGNT AFF ESTROG RE 01/27/2017 CODY DIEZ REX Ot Z90.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, BILATERAL 01/27/2017 CHRIS WINTER GROCERY DELIVERER Ot 626.8 MENSTRUAL DISORDER NEC 01/27/2017 MAGALLANES DO, MYNOR C Ot 626.8 MENSTRUAL DISORDER NEC 01/27/2017 MAGALLANES DO, MYNOR C Ot V72.84 EXAM PRE-OPERATIVE NOS 01/27/2017 MAGALLANES DO, MYNOR C Ot V74.8 SCREEN-BACTERIAL DIS NEC 01/27/2017 MAGALLANES DO, MYNOR C Ot 626.9 MENSTRUAL DISORDER NOS 01/27/2017 MAGALLANES DO, MYNOR C Ot V72.84 EXAM PRE-OPERATIVE NOS 01/27/2017 MAGALLANES DO, MYNOR C Ot 789.00 ABDOMINAL PAIN, UNSPECIFIED SITE 01/27/2017 ELIZABETH LEYVA GROCERY DELIVERER Ot N63 UNSPECIFIED LUMP IN BREAST 01/27/2017 BEN CASTRO, LIZZIE [place] Ot N32.81 OVERACTIVE BLADDER 01/27/2017 BEN CASTRO, LIZZIE [place] Ot N39.46 MIXED INCONTINENCE 01/27/2017 BEN CASTRO, LIZZIE [place] Ot Z01.818 ENCOUNTER FOR OTHER PREPROCEDURAL EXAMIN 01/27/2017 BEN CASTRO, LIZZIE [place] Ot Z11.2 ENCOUNTER FOR SCREENING FOR OTHER BACTER 01/27/2017 SOFIA CASTRO, ANJUM Ferreira Ot C50.912 MALIGNANT NEOPLASM OF UNSPECIFIED SITE O 01/27/2017 Ot C50.912 MALIGNANT NEOPLASM OF UNSPECIFIED SITE O 01/27/2017 Ot Z01.818 ENCOUNTER FOR OTHER PREPROCEDURAL EXAMIN 01/27/2017 Ot Z11.2 ENCOUNTER FOR SCREENING FOR OTHER BACTER 01/27/2017 CODY DIEZ CLINICAL REIMBURSEMENT SPECIALIST Ot 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 01/27/2017 CODY DIEZ CLINICAL REIMBURSEMENT SPECIALIST Ot E66.01 MORBID (SEVERE) OBESITY DUE TO EXCESS CA 01/27/2017 CODY DIEZ CLINICAL REIMBURSEMENT SPECIALIST Ot E78.5 HYPERLIPIDEMIA, UNSPECIFIED 01/27/2017 CODY DIEZ CLINICAL REIMBURSEMENT SPECIALIST Ot F31.9 BIPOLAR DISORDER, UNSPECIFIED 01/27/2017 CODY DIEZ CLINICAL REIMBURSEMENT SPECIALIST Ot I10 ESSENTIAL (PRIMARY) HYPERTENSION 01/27/2017 RGCODY CLINICAL REIMBURSEMENT SPECIALIST Ot J44.9 CHRONIC OBSTRUCTIVE PULMONARY DISEASE, U 01/27/2017 CODY DIEZ CLINICAL REIMBURSEMENT SPECIALIST Ot K21.9 GASTRO-ESOPHAGEAL REFLUX DISEASE WITHOUT 01/27/2017 CODY DIEZ CLINICAL REIMBURSEMENT SPECIALIST Ot Z17.0 ESTROGEN RECEPTOR POSITIVE STATUS [ER+] 01/27/2017 DIEZCODYP Ot Z68.41 BODY MASS INDEX (BMI) 40.0-44.9, ADULT 01/27/2017 CODY DIEZP Ot Z79.899 OTHER OPERATIONS SUPPORT PROFESSIONALS (CURRENT) DRUG THERAPY 01/27/2017 RGCODYP Ot 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 01/27/2017 DIEZCODY Sharma CLINICAL REIMBURSEMENT SPECIALIST Ot 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 01/27/2017 DIEZCODY Sharma CLINICAL REIMBURSEMENT SPECIALIST Ot Z12.31 ENCNTR SCREEN MAMMOGRAM FOR MALIGNANT NE 01/27/2017 CODY DIEZP Ot Z79.818 LNG TRM (CRNT) USE OF AGNT AFF ESTROG RE 01/27/2017 CODY DIEZ CLINICAL REIMBURSEMENT SPECIALIST Ot Z90.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, BILATERAL Procedures Code Description [place] [address] BRONCHODILATION PRE/POST 02/23/2012 48789 RESPIRATORY FLOW VOLUME LOOP 02/23/2012 58810 SPIROMETRY 2011 NEURO MEAGAN LAZO 05/01/2012 OphthalmLeno Dyer 06/30/2012 78937 EXCISION BENIGN LESION 0.6-1 cm (spcify location in [facility] description) 07/04/2012 21865 EXCISION BENIGN LESION 1.1-2 cm (specify location in [facility] descriiption) 07/04/2012 62635 MRI BRAIN W/O & W/DYE 07/04/2012 ALBERTO WILKERSON 2012 39029 MRI BRAIN W/O CONTRAST 07/05/201252 TRIGGER POINT INJ/1-2 MUS 07/21/2012 37064 ROUTINE VENIPUNCTURE 08/25/2012 38632 CMP 08/25/2012 2298394 GFR CALC (RESULT ONLY) 08/25/2012 10520 VITAMIN D 25-HYDROXY (D2,D3, TOTAL) 08/25/201216798 TRIGGER POINT INJ/1-2 MUS 09/07/2012 16484 A1C (IN-HOUSE) 38025 OXIMETRY - OVERNIGHT 11/08/2012 OphthalmLg Durán 12/08/2012 G0008 FLU ADMINISTRATION (MEDICARE ONLY) 01/11/2013 UROLOGY LIZZIE CONTRERAS 33117 OXIMETRY 2012 72172 THERAPUTIC INJ SQ/IM 02/27/2013 J1050 DEPO PROVERA 02/2013 35854 URINE TEST (IN-HOUSE) 02/27/2013 28647 ROUTINE VENIPUNCTURE 04/07/2013 G0438 PPPS, INITIAL VISIT 04/07/2013 9370790 GFR CALC (RESULT ONLY) 04/07/2013 11192 [facility] 04/07/2013 14383 ROUTINE VENIPUNCTURE 05/22/2013 J1050 DEPO PROVERA 06/2013 48957 THERAPUTIC INJ SQ/IM 05/22/2013 11729 CMP 05/22/2013 0598495 GFR CALC (RESULT ONLY) 05/22/2013 93133 ROUTINE VENIPUNCTURE 08/02/2013 40454 UA W/ CULTURE IF INDICATED 08/02/2013 2143751 GFR CALC (RESULT ONLY) 08/02/2013 58909 CMP 08/02/2013 38771 LIPID PANEL 08/02 98518 CULTURE URINE 90566 ROUTINE VENIPUNCTURE 09/15/2013 44740 THERAPUTIC INJ SQ/IM 09/15/2013 J1050 DEPO PROVERA 53934 CMP 09/15/2013 6318448 GFR CALC (RESULT ONLY) 09/15/2013 14445 ROUTINE VENIPUNCTURE 12/08/2013 48160 CMP 12/08/2013 07420 TSH 12/08/2013 G0008 FLU ADMINISTRATION (MEDICARE ONLY) 01/08/2014 20206 ROUTINE VENIPUNCTURE 03/30/2014 IRGROUP IRON GROUP (IRON,TIBC, FERRITIN) 03/30/2014 36328 PSYCH DIAGNOSTIC EVALUATION 03/30/2014 64018 CBC 03/30/2014 2245368 GFR CALC (RESULT ONLY) 03/30/2014 94551 CMP 03/30/2014 67318 IRON SERUM 2013 15030 IRON BNDNG CAP 53839 TSH 03/30/2014 85943 FERRITIN 2013 06225 US HEAD (SOFT TISSUE) ULTRASOUND, HEAD 04/10/2014 28855 UA W/ CULTURE IF INDICATED 07/10/2014 37167 THERAPUTIC INJ SQ/IM 07/18/2014 J1050 DEPO PROVERA 04/2014 09581 TEST, URINE (IN-HOUSE) 07/18/2014 Results Encounters ACCT No. Visit Date/Time Discharge Status Pt. Type Provider Facility Loc./Unit Complaint [id number] 08/03/2014 10:10:00 08/03/2014 23: 59:59 CLS Outpatient PHILIPPE SALGUERO DO [id number] 07/19/2014 11:04:00 07/19/2014 23: 59:59 CLS Outpatient BOY LUND APRN [id number] 07/18/2014 14:08:00 07/18/2014 23: 59:59 CLS Outpatient PHILIPPE SALGUERO DO [id number] 07/10/2014 13:29:00 07/10/2014 23: 59:59 CLS Outpatient CHRIS WINTER APRN [id number] 06/29/2014 08:24:00 06/29/2014 23: 59:59 CLS Outpatient PHILIPPE SALGUERO DO [id number] 04/10/2014 11:18:00 04/10/2014 23: 59:59 CLS Outpatient PHILIPPE SALGUERO DO [id number] 03/30/2014 14:55:00 03/30/2014 23: 59:59 CLS Outpatient JACKIE PACHECO [id number] 02/09/2014 09:53:00 02/09/2014 23: 59:59 CLS Outpatient PHILIPPE SALGUERO DO [id number] 02/08/2014 11:58:00 02/08/2014 23: 59:59 CLS Outpatient BOY LUND APRN [id number] 02/08/2014 11:58:00 02/08/2014 23: 59:59 CLS Outpatient BOY LUND APRN [id number] 01/09/2014 11:47:00 01/09/2014 23: 59:59 CLS Outpatient BYO LUND APRN [place] [id number] 01/09/2014 11:47:00 01/09/2014 23: 59:59 CLS Outpatient BOY LUND APRN [facility] [id number] 01/08/2014 10:59:00 01/08/2014 23: 59:59 CLS Outpatient NOEMY OLVERA PHILIPPE Ferreira [id number] 12/08/2013 13:56:00 12/08/2013 23: 59:59 CLS Outpatient SALGUERO DOPHILIPPE [id number] 12/07/2013 10:42:00 12/07/2013 23: 59:59 CLS Outpatient ASHELY SPANGLERVeena BOY J [id number] 10/31/2013 14:19:00 10/31/2013 23: 59:59 CLS Outpatient ASHELY SPANGLERVeena BOY J [id number] 10/31/2013 14:19:00 10/31/2013 23: 59:59 CLS Outpatient ASHELY SPANGLERVeena BOY J [id number] 10/16/2013 11:01:00 10/16/2013 23: 59:59 CLS Outpatient TANISHA SALGUERO DORomán Ferreira [id number] 10/06/2013 11:06:00 10/06/2013 23: 59:59 CLS Outpatient WHITE IVONSDEEDEE [id number] 09/27/2013 16:06:00 09/27/2013 23: 59:59 CLS Outpatient ASHELY SPANGLERVeena BOY J [id number] 09/27/2013 16:06:00 09/27/2013 23: 59:59 CLS Outpatient ASHELY SPANGLERVeena BOY [place] [id number] 09/19/2013 00:00:00 09/19/2013 23: 59:59 CLS Outpatient WHITE DDSDEEDEE [id number] 09/15/2013 09:35:00 09/15/2013 23: 59:59 CLS Outpatient SALGUERO DOPHILIPPE [id number] 09/15/2013 09:35:00 09/15/2013 23: 59:59 CLS Outpatient SALGUERO DOPHILIPPE [id number] 09/07/2013 12:40:00 09/07/2013 23: 59:59 CLS Outpatient ASHELY SPANGLERBOY Curiel [id number] 09/01/2013 10:36:00 09/01/2013 23: 59:59 CLS Outpatient WHITE DDSDEEDEE [place] [id number] 08/07/2013 09:51:00 08/07/2013 23: 59:59 CLS Outpatient SALGUERO DOPHILIPPE [id number] 08/02/2013 12:13:00 08/02/2013 23: 59:59 CLS Outpatient NARAYANAN JONN MAEVE Maxim [id number] 07/25/2013 11:41:00 07/25/2013 23: 59:59 CLS Outpatient WHITE DDSDEEDEE [place] [id number] 07/03/2013 16:31:00 07/03/2013 23: 59:59 CLS Outpatient SALGUERO DOPHILIPPE Hanna [id number] 05/22/2013 13:20:00 05/22/2013 23: 59:59 CLS Outpatient SALGUERO DOPHILIPPE Hanna [id number] 05/22/2013 13:20:00 05/22/2013 23: 59:59 CLS Outpatient SALGUERO DOPHILIPPE Hanna [id number] 04/07/2013 12:55:00 04/07/2013 23: 59:59 CLS Outpatient SALGUERO DOPHILIPPE Hanna [id number] 04/07/2013 12:55:00 04/07/2013 23: 59:59 CLS Outpatient SALGUERO DOPHILIPPE Hanna [id number] 02/27/2013 09:52:00 02/27/2013 23: 59:59 CLS Outpatient SALGUERO DOPHILIPPE Hanna [id number] 02/27/2013 09:52:00 02/27/2013 23: 59:59 CLS Outpatient SALGUERO DOPHILIPPE Hanna [id number] 01/27/2013 13:52:00 01/27/2013 23: 59:59 CLS Outpatient SALGUERO DOPHILIPPE Hanna [id number] 01/11/2013 09:50:00 01/11/2013 23: 59:59 CLS Outpatient SALGUERO DO, PHILIPPE K [id number] 07/21/2012 09:13:00 07/21/2012 23: 59:59 CLS Outpatient SALGUERO DOPHILIPPE Hanna [id number] 07/04/2012 17:00:00 07/04/2012 23: 59:59 CLS Outpatient SALGUERO DO, PHILIPPE Hanna [id number] 05/27/2012 16:26:00 05/27/2012 23: 59:59 CLS Outpatient SALGUERO DOTANISHARomán Ferreira [id number] 04/29/2012 15:48:00 04/29/2012 23: 59:59 CLS Outpatient [id number] 04/06/2012 10:14:00 04/06/2012 23: 59:59 CLS Outpatient LOBO CHERY DDS [id number] 03/08/2012 09:54:00 03/08/2012 23: 59:59 CLS Outpatient [id number] 02/04/2012 08:39:00 02/04/2012 23:59 :59 CLS Outpatient PHILIPPE SALGUERO DO [id number] 12/08/2012 10:16:00 Document Registration [id number] 12/08/2012 10:16:00 Document Registration [id number] 11/05/2012 09:28:00 Document Registration [id number] 10/10/2012 10:09:00 Document Registration [id number] 10/06/2012 10:28:00 Document Registration [id number] 09/07/2012 11:04:00 Document Registration [id number] 08/25/2012 13:39:00 Document Registration [id number] 07/21/2012 09:13:00 Document Registration [id number] 12/01/2016 12:31:00 2016 13:08:00 DIS Outpatient XAVIER GARSIA Via [facility] ONC [id number] 07/28/2016 12:09:00 2016 00:01:00 DIS Outpatient XAVIER GARSIA [facility] ONC [id number] 09/27/2016 13:43:00 2016 14:58:00 DIS Emergency DESTINI CASTRO, RADHA Hawthorne Via [facility] ER R KNEE PAIN [id number] 08/06/2016 09:56:00 2016 23:59:59 CLS Outpatient CODY DIEZ Via [facility] RAD C50.112,Z79.818,Z12.31 [id number] 03/19/2016 11:42:00 2016 00:01:00 DIS Outpatient XAVIER GARSIA [facility] ONC [id number] 11/19/2015 08:22:00 2015 11:04:00 DIS Outpatient JARRED CASTRO, ROCÍO [facility] ONC [id number] 10/01/2015 08:40:00 2015 11:12:00 DIS Outpatient ANJUM BLACK MD [facility] ONC [id number] 09/18/2015 08:22:00 2015 12:55:00 DIS Outpatient ARUNA TERRELL MD [facility] HISTORY OR BREAST CANCER [id number] 09/12/2015 05:36:00 2015 10:45:00 DIS Outpatient ARUNA TERRELL MD [facility] PREOP HISTORY OF BREAST CANCER [id number] 08/13/2015 14:40:00 2015 23:59:59 CLS Preadmit CODY DIEZ [facility] ONC [id number] 07/25/2015 12:59:00 2015 00:01:00 DIS Outpatient ANJUM BLACK MD [facility] ONC [id number] 08/01/2015 06:55:00 2015 11:05:00 DIS Outpatient JERRICA GRANADO MD [facility] BREAST CANCER LEFT BREAST [id number] 07/30/2015 08:12:00 2015 08:29:00 DIS Outpatient JERRICA GRANADO MD [facility] PREOP BREAST CANCER LEFT BREAST [id number] 07/23/2015 14:15:00 2015 23:59:59 CLS Outpatient CODY DIEZ [facility] ONC [id number] 06/29/2015 00:19:00 2015 03:29:00 DIS Emergency MAEVE CHANEL MD Via [facility] ER BLOOD IN STOOL [id number] 05/23/2015 06:25:00 2015 11:00:00 DIS Outpatient JERRICA GRANADO MD Via [facility] CARD LEFT BREAST CANCER [id number] 05/21/2015 08:25:00 2015 23:59:59 CLS Outpatient ANJUM BLACK MD Via [facility] RAD BREAST CANCER INITAL STAGING [id number] 05/14/2015 06:00:00 2015 10:07:00 DIS Outpatient LIZZIE CONTRERAS MD [facility] OVERACTIVE BLADDER; VAGINAL LESION; VAGINAL FB [id number] 05/09/2015 05:49:00 2015 23:59:59 CLS Outpatient LIZZIE CONTRERAS MD [facility] PREOP OVERACTIVE BLADDER; VAGINAL LESION; VAGIONAL FB [id number] 04/17/2015 11:31:00 2014 23:59:59 CLS Outpatient ELIZABETH LEYVA APRN [facility] RAD BREAST MASS [id number] 12/06/2014 17:30:00 2014 18:30:00 DIS Outpatient JERRICA GRANADO MD [facility] ACUTE APPENDICITIS [id number] 12/06/2014 13:26:00 2014 23:59:59 CLS Outpatient MYNOR MAGALLANES DO Via [facility] RAD ABDOMINAL PAIN [id number] 12/06/2014 13:18:00 2014 23:59:59 CLS Preadmit MYNOR MAGALLANES DO [facility] RAD ABD PAIN [id number] 12/06/2014 11:19:00 2014 12:38:00 DIS Emergency ALONSO PARRA MD [facility] ER RIGHT SIDE ABD PAIN [id number] 11/27/2014 06:11:00 2014 18:25:00 DIS Outpatient MYNOR MAGALLANES DO [facility] ABNORMAL UTERINE BLEEDING; FAILED NOVASURE [id number] 11/23/2014 07:02:00 2014 23:59:59 CLS Outpatient MYNOR MAGALLANES DO [facility] PREOP ABNORMAL UTERINE BLEEDING; FAILED NOVASURE [id number] 11/20/2014 07:20:00 2014 11:35:00 DIS Outpatient MYNOR MAGALLANES DO [facility] DYSFUNCTIONAL UTERINE BLEEDING [id number] 11/19/2014 08:55:00 2014 23:59:59 CLS Outpatient MYNOR MAGALLANES DO [facility] PREOP DYSFUNCTIONAL UTERINE BLEEDING [id number] 07/12/2014 09:38:00 2014 23:59:59 CLS Outpatient CHRIS WINTER APRN Via [facility] RAD SCREENING,DUB [id number] 02/04/2014 00:09:00 2013 00:40:00 DIS Emergency ELY OLVERA RONEL Ioana [facility] ER [id number] 05/17/2013 06:36:00 2013 13:43:00 DIS Outpatient LIZZIE CONTRERAS MD [facility] [id number] 05/15/2013 09:28:00 2013 23:59:59 CLS Outpatient LIZZIE CONTRERAS MD [facility] PREOP [id number] 10/01/2012 11:14:00 2012 23:59:59 CLS Outpatient [id number] 05/22/2015 11:29:00 Document Registration [id number] 04/30/2014 10:38:00 Document Registration [id number] 04/30/2014 10:38:00 Document Registration [id number] 04/30/2014 10:37:00 Document Registration [id number] 03/03/2012 12:43:00 Document Registration [id number] 11/30/2011 15:34:00 Document Registration [id number] 04/07/2011 13:21:00 Document Registration [id number] 03/24/2011 11:32:00 Document Registration [id number] 12/26/2009 08:45:00 Document Registration [id number] 12/18/2009 08:51:00 Document Registration [id number] 12/03/2009 16:08:00 Document Registration [id number] 11/29/2009 08:46:00 Document Registration [id number] 11/21/2009 07:39:00 Document Registration [id number] 08/22/2009 11:54:00 Document Registration [id number] 12/20/2008 12:16:00 Document Registration [id number] 11/30/2008 08:21:00 Document Registration [id number] 11/19/2008 16:36:00 Document Registration [id number] 11/09/2008 08:08:00 Document Registration
== END 2017-02-11 19:56 | disposition home or self-care (01) ==
LOC: EDUNIT# 18:46 → ER 18:47
DX: L50.9 Urticaria, unspecified (principal); F90.9 Attention-deficit hyperactivity disorder, unspecified type; F41.9 Anxiety disorder, unspecified; F31.9 Bipolar disorder, unspecified; M47.9 Spondylosis, unspecified; G25.81 Restless legs syndrome; K21.9 Gastro-esophageal reflux disease without esophagitis; I10 Essential (primary) hypertension; J44.9 Chronic obstructive pulmonary disease, unspecified; Z90.49 Acquired absence of other specified parts of digestive tract; Z87.59 Personal history of other complications of pregnancy, childbirth and the puerperium; Z90.710 Acquired absence of both cervix and uterus; Z91.5 Personal history of self-harm; Z90.13 Acquired absence of bilateral breasts and nipples; Z87.891 Personal history of nicotine dependence
CPT/HCPCS: 96372; 99284

== ENCOUNTER 2017-03-05 22:02 | Emergency (ER) | payer MEDICARE, MEDICAID ==
[~2017-03-05] VITALS: Ht 147.3 cm; Wt 94.8 kg
[~2017-03-05 22:02] MED LIST changes: +BUDE10.2 IH; +CALC1CAP21 PO; +EXEM25TA4 PO; +FAMO40TA72 PO; +HYDR50CA PO; +MELA5TAB14 PO; +MOME15CR17 TP; +MONT10TA21 PO; +NF-ROPIN4T PO; +NF-SOLIF5T PO; +OXYC-529 PO; -OXYC5TAB71 PO
--- OUTSIDE RECORDS SUMMARY | 2017-03-05 22:09 | XMS REPORT | Clinical Summary ---
Author Author [facility] Organization [facility] Address Unknown Phone Unavailable Care Team Providers Care Sample Tester Name Role Phone PCP Unavailable Source Comments Some departments are not documenting in the electronic medical record. If you do not see the information that you expected, contact Release of Information in the Health Information Management department at [phone] for further assistance in locating additional records.[facility] Allergies Active Allergy Reactions Severity Noted Date [...] Taken Blood Pressure 146/83 05/22/2016 4:00 PM APARTMENT MAINTENANCE Pulse 94 05/22/2016 4:00 PM APARTMENT MAINTENANCE Temperature 37.2 C (98.9 F) 05/22/2016 4:00 PM APARTMENT MAINTENANCE Respiratory Rate 18 12/16/2015 12:12 PM CDT Oxygen Saturation 93% 03/17/2016 5:40 PM APARTMENT MAINTENANCE Inhaled Oxygen - - Concentration Weight 90.7 kg (200 lb) 05/22/2016 4:00 PM APARTMENT MAINTENANCE Height 147.3 cm (4' 10") 05/22/2016 4:00 PM APARTMENT MAINTENANCE Body Mass Index 41.8 05/22/2016 4:00 PM APARTMENT MAINTENANCE Plan of Treatment Health Maintenance Due Date Last Done Comments PHYSICAL (COMPREHENSIVE) 06/26/1974 EXAM PERTUSSIS VACCINE 06/26/1978 TETANUS VACCINE 06/26/1984 CERVICAL CANCER SCREENING 06/26/1997 BREAST CANCER SCREENING 2007 INFLUENZA VACCINE 11/17/2016 Implants Implanted Type Area Desktop Support Associate Device Expiration Model / Identifier Date Serial / Lot Matrix Tissue [id number] Alloderm Left: LIFECELL 09/15/2017 [id number] / Thick Acellular Dermis Breast [id number] Implanted: Qty: 1 on 12/26/2015 by 20 / Homer Alejandra MD [id number] Log Yard Manager Tissue 12.7x10.8cm Breast Left: MENTOR:AESTHETI 06/12/2019 [id number] / 450ml Style 9200 Textured Breast CS PRDT [id number] Implanted: Qty: 1 on 12/26/2015 by 3 / Homer Alejandra MD [id number] Implant Breast 350ml Gel Smooth Left: MENTOR:AESTHETI 12/22/2018 350 -3501 Memorygel Cohesive I Breast CS PRDT BC / Implanted: Qty: 1 on 03/17/2016 by [id number] Homer Alejandra MD 2 / NA Explanted Type Area Desktop Support Associate Device Expiration Model / Identifier Date Serial / Lot Tissue Log Yard Manager Left: CAROLEE NA / Explanted: Qty: 1 on 03/17/2016 Breast [facility] NA / [id number] Results Not on filefrom Last 3 Months
--- OUTSIDE RECORDS SUMMARY | 2017-03-05 22:13 | XMS REPORT ---
Author Author MANI JACKSON Organization [facility] Address [address] [place] [address] Care Team Providers Care Photo Journalist Name Role Phone MANI JACKSON Unavailable PROBLEMS Type Condition ICD9-CM Code QPC10-RU Code Onset Dates Condition Status SNOMED Code Problem Essential hypertension I10 Active 47443141 Problem GERD (gastroesophageal reflux disease) K21.9 Active 013394624 Problem Breast cancer C50.919 Active 331076311 Problem Eye exam, routine Z01.00 Active 254143989 Problem Obesity E66.9 Active 842389853 Problem Arthritis M19.90 Active 4372490 Problem MAYRA (generalized anxiety disorder) F41.1 Active 77581965 Problem PTSD (post-traumatic stress disorder) F43.10 Active 33735862 Problem Schizoaffective disorder, unspecified F25.9 Active 84159020 Problem Gastroesophageal reflux disease with esophagitis K21.0 Active 304154084 Problem Anxiety disorder, unspecified F41.9 Active 079823936 Problem History of breast cancer Z85.3 Active 215054527 Problem Unspecified mood [affective] disorder F39 Active 805668110 Problem Restless leg syndrome G25.81 Active 76169924 Problem Hypoxia, sleep related G47.34 Active 53024841 Problem Overactive bladder N32.81 Active 942718645 Problem Other chronic pain G89.29 Active 99145219 Problem Claustrophobia F40.240 Active 11495521 Problem Arthralgia of right hip M25.551 Active 86709387 Problem Confusion R41.0 Active 983568590 Problem Stroke-like symptoms R29.90 Active 097385461 Problem Cough R05 Active 71934614 Problem Neuropathy G62.9 Active 937019256 Problem Open wound T14.8 Active 857975648 Problem Seasonal allergic rhinitis due to pollen J30.1 Active 30693475 Problem Fibromyalgia M79.7 Active 14911931 Problem Acute right-sided low back pain without sciatica M54.5 Active 741283369 Problem COPD (chronic obstructive pulmonary disease) J44.9 Active 78971218 Problem Intermittent drowsiness R40.0 Active 581212337 Problem Arthralgia of right ankle M25.571 Active 711992392 Problem Arthralgia of right knee M25.561 Active 45803945 Problem Sleep apnea in adult G47.33 Active 82512268 Problem Stress incontinence N39.3 Active 05169003 Problem Burn of stomach, initial encounter T28.2XXA Active 50901217 Problem Fatigue, unspecified type R53.83 Active 66543807 ALLERGIES Substance Reaction Event Type Date Status Latuda mood swings Drug Allergy August, Active Prozac Worsened mood swings. Drug Allergy August, Active Propranolol HCl Unknown Drug Allergy August, Active Neurontin Memory Loss Drug Allergy August, Active Ambien Unknown Drug Allergy August, Active Advair Diskus dizziness, nausea Drug Allergy August, Active SOCIAL HISTORY Never Assessed PLAN OF CARE Activity Details Follow Up prn Reason: VITAL SIGNS Height 60 in 2016-09-11 Weight 201.4 lbs 2016-09-11 Temperature 99.2 degrees Fahrenheit 2016-09-11 Heart Rate 80 bpm 2016-09-11 Respiratory Rate 22 2016-09-11 BMI 39.33 kg/m2 2016-09-11 Blood pressure systolic 128 mmHg 2016-09-11 Blood pressure diastolic 84 mmHg 2016-09-11 MEDICATIONS Medication Instructions Dosage Frequency Start Date End Date Duration Status Amitriptyline HCl 100 mg Orally Once at bedtime for sleep 1 tablet Apr Active Singulair 10 mg Orally Once a day 1 tablet in the evening 24h August, 30 day(s) Active Omeprazole 20 mg Orally 2 times a day TAKE 1 CAPSULE BY MOUTH TWICE DAILY 12h Active VESIcare 5 mg Orally Once a day 1 tablet 24h August, Nov, 30 day(s) Active Meclizine HCl 12.5 MG Orally Once a day 2 tablets as needed 24h August, 30 day(s) Active Oxygen 2 L/NC subcutaneously at night only as directed Jul, Active Albuterol Sulfate (2.5 MG/3ML) 0.083% Inhalation every 4-6 hours as needed for cough or wheeze 3 ml Jan, 30 days Active Lyrica 100 mg Orally Twice a day 1 capsule 12h 15 Aug, 2016 Active Ibuprofen 600 MG Orally every 6 hrs 1 tablet as needed for pain 6h Nov, 30 days Active Exemestane 25 MG Orally Once a day 1 tablet with a meal 24h Active Diltiazem HCl 120 MG Orally daily TAKE 1 TABLET BY MOUTH 2 TIMES A DAY 24h Active Pramipexole Dihydrochloride 0.25 MG Orally Once a day TAKE 3 TABLETS BY MOUTH AT BEDTIME 24h 30 days Active Contrave 8-90 MG Orally Twice a day one daily x 7 then one bid, then 2 in the am and one in pm, then bid 12h August, 30 day(s) Active Symbicort 160-4.5 MCG/ACT Inhalation Twice a day 2 puffs 12h May, Active Requip 4 MG Orally Once a day as directed 24h Feb, 30 days Active Albuterol Sulfate 90 mcg/actuation 2 puffs by Inhalation route every 4-6 hours as needed PRN cough or wheezing Oct, Active TENS Unit 1 APPLY TO THE BACK 24h May, Active RESULTS No Results PROCEDURES Procedure Date Ordered Result Body Site [facility] VISIT ESTABLISHED PATIENT September 11, 2016 IMMUNIZATIONS No Known Immunizations MEDICAL (GENERAL) [...] History Appendectomy 12/2014 Surgical History L breast lumpectomy 04/22/15 Surgical History bladder sling Surgical History Left breast implant 09/2016 Surgical History Bilateral Mastectomy 02/01/2017 Hospitalization History surgeries
--- OUTSIDE RECORDS SUMMARY | 2017-03-05 22:15 | XMS REPORT ---
Author Author MANI JACKSON Organization [facility] Address [address] [place] [address] Care Team Providers Care Fitness Center Attendant Name Role Phone MANI JACKSON Unavailable PROBLEMS Type Condition ICD9-CM Code [id number] Code Onset Dates Condition Status SNOMED Code Problem Essential hypertension I10 Active 57335816 Problem GERD (gastroesophageal reflux disease) K21.9 Active 803502305 Problem Breast cancer C50.919 Active 302621556 Problem Eye exam, routine Z01.00 Active 769819901 Problem Obesity E66.9 Active 775075314 Problem Arthritis M19.90 Active 9581932 Problem MAYRA (generalized anxiety disorder) F41.1 Active 00842685 Problem PTSD (post-traumatic stress disorder) F43.10 Active 84801383 Problem Schizoaffective disorder, unspecified F25.9 Active 05266551 Problem Gastroesophageal reflux disease with esophagitis K21.0 Active 305985928 Problem Anxiety disorder, unspecified F41.9 Active 646111829 Problem History of breast cancer Z85.3 Active 700846824 Problem Unspecified mood [affective] disorder F39 Active 004178694 Problem Restless leg syndrome G25.81 Active 12503199 Problem Hypoxia, sleep related G47.34 Active 03231039 Problem Overactive bladder N32.81 Active 299786343 Problem Other chronic pain G89.29 Active 79661793 Problem Claustrophobia F40.240 Active 79383765 Problem Arthralgia of right hip M25.551 Active 34743745 Problem Confusion R41.0 Active 094340099 Problem Stroke-like symptoms R29.90 Active 040232053 Problem Cough R05 Active 44475872 Problem Neuropathy G62.9 Active 996837684 Problem Open wound T14.8 Active 873531399 Problem Seasonal allergic rhinitis due to pollen J30.1 Active 80250303 Problem Fibromyalgia M79.7 Active 64839795 Problem Acute right-sided low back pain without sciatica M54.5 Active 606105078 Problem COPD (chronic obstructive pulmonary disease) J44.9 Active 41039473 Problem Intermittent drowsiness R40.0 Active 686188237 Problem Arthralgia of right ankle M25.571 Active 205565842 Problem Arthralgia of right knee M25.561 Active 01631880 Problem Sleep apnea in adult G47.33 Active 55210926 Problem Stress incontinence N39.3 Active 19570894 Problem Burn of stomach, initial encounter T28.2XXA Active 12575768 Problem Fatigue, unspecified type R53.83 Active 10899063 ALLERGIES Substance Reaction Event Type Date Status [...] prn Reason: VITAL SIGNS Height 60 in 2016-09-03 Weight 203.2 lbs 2016-09-03 Temperature 99.1 degrees Fahrenheit 2016-09-03 Heart Rate 84 bpm 2016-09-03 Respiratory Rate 20 2016-09-03 BMI 39.68 kg/m2 2016-09-03 Blood pressure systolic 122 mmHg 2016-09-03 Blood pressure diastolic 80 mmHg 2016-09-03 MEDICATIONS Medication Instructions Dosage Frequency Start Date End Date Duration Status TENS Unit 1 APPLY TO THE BACK 24h May, Active Amitriptyline HCl 100 mg Orally Once at bedtime for sleep 1 tablet Apr Active Oxygen 2 L/NC subcutaneously at night only as directed Jul, Active Requip 4 MG Orally Once a day as directed 24h Feb, 30 days Active C-PAP Machine 1 L by inhalation route at bedtime at night Jun, Active Omeprazole 20 mg Orally 2 times a day TAKE 1 CAPSULE BY MOUTH TWICE DAILY 12h Active VESIcare 5 mg Orally Once a day 1 tablet 24h August, Nov, 30 day(s) Active Albuterol Sulfate (2.5 MG/3ML) 0.083% Inhalation every 4-6 hours as needed for cough or wheeze 3 ml Jan, 30 days Active Symbicort 160-4.5 MCG/ACT Inhalation Twice a day 2 puffs 12h 20 May, 2016 Active Albuterol Sulfate 90 mcg/actuation 2 puffs by Inhalation route every 4-6 hours as needed PRN cough or wheezing Oct, Active Singulair 10 mg Orally Once a day 1 tablet in the evening 24h August, 30 day(s) Active Contrave 8-90 MG Orally Twice a day one daily x 7 then one bid, then 2 in the am and one in pm, then bid 12h August, 30 day(s) Active Pramipexole Dihydrochloride 0.25 MG Orally Once a day TAKE 3 TABLETS BY MOUTH AT BEDTIME 24h 30 days Active Ibuprofen 600 MG Orally every 6 hrs 1 tablet as needed for pain 6h Nov, 30 days Active Diltiazem HCl 120 MG Orally daily TAKE 1 TABLET BY MOUTH 2 TIMES A DAY 24h Active Exemestane 25 MG Orally Once a day 1 tablet with a meal 24h Active Lyrica 100 mg Orally Twice a day 1 capsule 12h August, Active RESULTS No Results PROCEDURES Procedure Date Ordered Result Body Site [facility] VISIT ESTABLISHED PATIENT September 03, 2016 THER/PROPH/DIAG INJ, SC/IM September 03, 2016 DEPO MEDROL 40 MG/ML September 03, 2016 DEXAMETHASONE 4MG/ML (PER 1 MG) September 03, 2016 IMMUNIZATIONS Vaccine Route Administration Date Status DEXAMETHASONE 4MG/ML (PER 1 MG) IM Intramuscular September 03, 2016 Administered DEPO MEDROL 40 MG/ML IM Intramuscular September 03, 2016 Administered MEDICAL (GENERAL) HISTORY Type Description Date Medical [...]
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
--- OUTSIDE RECORDS SUMMARY | 2017-03-05 22:23 | XMS REPORT ---
Author Author BROOKE LAMB Organization [facility] Address [address] [place] [address] Care Team Providers Care Vest Maker Name Role Phone HUGN LAMBE Unavailable PROBLEMS Type Condition ICD9-CM Code [id number] Code Onset Dates Condition Status SNOMED Code Problem Essential hypertension I10 Active 68442553 Problem GERD (gastroesophageal reflux disease) K21.9 Active 012071677 Problem Breast cancer C50.919 Active 451911727 Problem Eye exam, routine Z01.00 Active 377639748 Problem Obesity E66.9 Active 386553108 Problem Arthritis M19.90 Active 4827601 Problem MAYRA (generalized anxiety disorder) F41.1 Active 44881564 Problem PTSD (post-traumatic stress disorder) F43.10 Active 73074369 Problem Schizoaffective disorder, unspecified F25.9 Active 99030402 Problem Gastroesophageal reflux disease with esophagitis K21.0 Active 856715569 Problem Anxiety disorder, unspecified F41.9 Active 032662419 Problem History of breast cancer Z85.3 Active 984536926 Problem Unspecified mood [affective] disorder F39 Active 597037490 Problem Restless leg syndrome G25.81 Active 01873501 Problem Hypoxia, sleep related G47.34 Active 34047819 Problem Overactive bladder N32.81 Active 626624866 Problem Other chronic pain G89.29 Active 78220206 Problem Claustrophobia F40.240 Active 65929900 Problem Arthralgia of right hip M25.551 Active 50389713 Problem Confusion R41.0 Active 583735780 Problem Stroke-like symptoms R29.90 Active 290623090 Problem Cough R05 Active 79821252 Problem Neuropathy G62.9 Active 659956036 Problem Open wound T14.8 Active 354742852 Problem Seasonal allergic rhinitis due to pollen J30.1 Active 28558311 Problem Fibromyalgia M79.7 Active 72246276 Problem Acute right-sided low back pain without sciatica M54.5 Active 215173502 Problem COPD (chronic obstructive pulmonary disease) J44.9 Active 55145251 Problem Intermittent drowsiness R40.0 Active 393841439 Problem Arthralgia of right ankle M25.571 Active 340791148 Problem Arthralgia of right knee M25.561 Active 43306447 Problem Sleep apnea in adult G47.33 Active 27458294 Problem Stress incontinence N39.3 Active 96781891 Problem Burn of stomach, initial encounter T28.2XXA Active 43157783 Problem Fatigue, unspecified type R53.83 Active 28411782 ALLERGIES No Information SOCIAL HISTORY Never Assessed [...]
--- OUTSIDE RECORDS SUMMARY | 2017-03-05 22:25 | XMS REPORT ---
Author Author BROOKE LAMB [facility] Address [address] [place] [address] Care Team Providers Care Alum Plant Operator Name Role Phone JOANNE LAMBNETTE Unavailable PROBLEMS Type Condition ICD9-CM Code AEL29-YB Code Onset Dates Condition Status SNOMED Code Problem GERD (gastroesophageal reflux disease) K21.9 Active 679316104 Problem COPD (chronic obstructive pulmonary disease) J44.9 Active 28986068 Problem Breast cancer C50.919 Active 281917563 Problem Eye exam, routine Z01.00 Active 705115735 Problem Essential hypertension I10 Active 27178885 Problem Obesity E66.9 Active 812572032 Problem Arthritis M19.90 Active 5018761 Problem MAYRA (generalized anxiety disorder) F41.1 Active 86355196 Problem PTSD (post-traumatic stress disorder) F43.10 Active 13615509 Problem Stress incontinence N39.3 Active 91834697 Problem Schizoaffective disorder, unspecified F25.9 Active 79609235 Problem Gastroesophageal reflux disease with esophagitis K21.0 Active 811125242 Problem Anxiety disorder, unspecified F41.9 Active 209011761 Problem History of breast cancer Z85.3 Active 801323797 Problem Overactive bladder N32.81 Active 937206410 Problem Restless leg syndrome G25.81 Active 77353707 Problem Claustrophobia F40.240 Active 43375709 Problem Open wound T14.8 Active 611515558 Problem Confusion R41.0 Active 063712922 Problem Stroke-like symptoms R29.90 Active 240242566 Problem Unspecified mood [affective] disorder F39 Active 797991688 Problem Neuropathy G62.9 Active 672816165 Problem Hypoxia, sleep related G47.34 Active 38111626 Problem Seasonal allergic rhinitis due to pollen J30.1 Active 63878368 Problem Cough R05 Active 69330379 Problem Arthralgia of right knee M25.561 Active 08896236 Problem Fibromyalgia M79.7 Active 06815187 Problem Acute right-sided low back pain without sciatica M54.5 Active 343823843 Problem Arthralgia of right hip M25.551 Active 09956025 Problem Arthralgia of right ankle M25.571 Active 724178902 Problem Fatigue, unspecified type R53.83 Active 01657567 Problem Sleep apnea in adult G47.33 Active 32468870 Problem Intermittent drowsiness R40.0 Active 283628130 Problem Burn of stomach, initial encounter T28.2XXA Active 68002676 ALLERGIES No Information SOCIAL HISTORY Never Assessed PLAN OF CARE VITAL SIGNS MEDICATIONS Medication Instructions Dosage Frequency Start Date End Date Duration Status Albuterol Sulfate (2.5 MG/3ML) 0.083% Inhalation every 4-6 hours as needed for cough or wheeze 3 ml Jan, 30 days Active RESULTS No Results PROCEDURES [...]
--- OUTSIDE RECORDS SUMMARY | 2017-03-05 22:27 | XMS REPORT ---
Author Author BROOKE LAMB Organization [facility] Address [address] [place] [address] Care Team Providers Care Broodmare Barn Groom Name Role Phone HUNG LAMBE Unavailable PROBLEMS Type Condition ICD9-CM Code [id number] Code Onset Dates Condition Status SNOMED Code Problem Essential hypertension I10 Active 03771161 Problem GERD (gastroesophageal reflux disease) K21.9 Active 583176141 Problem Breast cancer C50.919 Active 168166758 Problem Eye exam, routine Z01.00 Active 306410676 Problem Obesity E66.9 Active 460969950 Problem Arthritis M19.90 Active 5475969 Problem MAYRA (generalized anxiety disorder) F41.1 Active 08644358 Problem PTSD (post-traumatic stress disorder) F43.10 Active 06770753 Problem Schizoaffective disorder, unspecified F25.9 Active 95190935 Problem Gastroesophageal reflux disease with esophagitis K21.0 Active 331876993 Problem Anxiety disorder, unspecified F41.9 Active 219709171 Problem History of breast cancer Z85.3 Active 113313557 Problem Unspecified mood [affective] disorder F39 Active 326121894 Problem Restless leg syndrome G25.81 Active 01422900 Problem Hypoxia, sleep related G47.34 Active 16754445 Problem Overactive bladder N32.81 Active 525780785 Problem Other chronic pain G89.29 Active 90441044 Problem Claustrophobia F40.240 Active 67862631 Problem Arthralgia of right hip M25.551 Active 80645919 Problem Confusion R41.0 Active 502572222 Problem Stroke-like symptoms R29.90 Active 773336045 Problem Cough R05 Active 24642047 Problem Neuropathy G62.9 Active 763882045 Problem Open wound T14.8 Active 973630070 Problem Seasonal allergic rhinitis due to pollen J30.1 Active 25551113 Problem Fibromyalgia M79.7 Active 35696900 Problem Acute right-sided low back pain without sciatica M54.5 Active 051277527 Problem COPD (chronic obstructive pulmonary disease) J44.9 Active 63109361 Problem Intermittent drowsiness R40.0 Active 447269323 Problem Arthralgia of right ankle M25.571 Active 045453049 Problem Arthralgia of right knee M25.561 Active 22138012 Problem Sleep apnea in adult G47.33 Active 86517917 Problem Stress incontinence N39.3 Active 85267853 Problem Burn of stomach, initial encounter T28.2XXA Active 05531573 Problem Fatigue, unspecified type R53.83 Active 37671132 ALLERGIES Substance Reaction Event Type Date Status Latuda mood swings Drug Allergy August, Active Prozac Worsened mood swings. Drug Allergy August, Active Propranolol HCl Unknown Drug Allergy August, Active Neurontin Memory Loss Drug Allergy August, Active Ambien Unknown Drug Allergy August, Active Advair Diskus dizziness, nausea Drug Allergy August, Active SOCIAL HISTORY Never Assessed PLAN OF CARE Activity Details Follow Up 4 weeks Reason:weight VITAL SIGNS Height 60 in 2016-08-24 Weight 204.4 lbs 2016-08-24 Temperature 98.5 degrees Fahrenheit 2016-08-24 Heart Rate 108 bpm 2016-08-24 Respiratory Rate 22 2016-08-24 BMI 39.91 kg/m2 2016-08-24 Blood pressure systolic 140 mmHg 2016-08-24 Blood pressure diastolic 87 mmHg 2016-08-24 MEDICATIONS Medication Instructions Dosage Frequency Start Date End Date Duration Status Gabapentin 300 MG Orally Three times a day 1 capsule 8h August, 30 day(s) Active Ibuprofen 600 MG Orally every 6 hrs 1 tablet as needed for pain 6h Nov, 30 days Active C-PAP Machine 1 L by inhalation route at bedtime at night Jun, Active Amitriptyline HCl 100 mg Orally Once at bedtime for sleep 1 tablet Apr Active TENS Unit 1 APPLY TO THE BACK 24h May, Active Requip 4 MG Orally Once a day as directed 24h Feb, 30 days Active Contrave 8-90 MG Orally Twice a day one daily x 7 then one bid, then 2 in the am and one in pm, then bid 12h August, Sep, 30 day(s) Active Albuterol Sulfate 90 mcg/actuation 2 puffs by Inhalation route every 4-6 hours as needed PRN cough or wheezing Oct, Active Exemestane 25 MG Orally Once a day 1 tablet with a meal 24h Active Omeprazole 20 mg Orally 2 times a day TAKE 1 CAPSULE BY MOUTH TWICE DAILY 12h Active Pramipexole Dihydrochloride 0.25 MG Orally Once a day TAKE 3 TABLETS BY MOUTH AT BEDTIME 24h 30 days Active Symbicort 160-4.5 MCG/ACT Inhalation Twice a day 2 puffs 12h May, Active Diltiazem HCl 120 MG Orally daily TAKE 1 TABLET BY MOUTH 2 TIMES A DAY 24h Active Albuterol Sulfate (2.5 MG/3ML) 0.083% Inhalation every 4-6 hours as needed for cough or wheeze 3 ml Jan, 30 days Active Oxygen 2 L/NC subcutaneously at night only as directed Jul, Active RESULTS No Results PROCEDURES Procedure Date Ordered Result Body Site [facility] VISIT ESTABLISHED PATIENT August 24, 2016 GLYCATED HEMOGLOBIN TEST August 24, 2016 IMMUNIZATIONS No Known Immunizations MEDICAL (GENERAL) [...]
--- OUTSIDE RECORDS SUMMARY | 2017-03-05 22:31 | XMS REPORT ---
Author Author BROOKE LAMB Organization [facility] Address [address] [place] [address] Care Team Providers Care Checkroom Chief Name Role Phone HUNG LAMBE Unavailable PROBLEMS Type Condition ICD9-CM Code PBH95-PO Code Onset Dates Condition Status SNOMED Code Problem Essential hypertension I10 Active 61730580 Problem GERD (gastroesophageal reflux disease) K21.9 Active 035002026 Problem Breast cancer C50.919 Active 448618598 Problem Eye exam, routine Z01.00 Active 971850089 Problem Obesity E66.9 Active 108497169 Problem Arthritis M19.90 Active 6286088 Problem MAYRA (generalized anxiety disorder) F41.1 Active 76488999 Problem PTSD (post-traumatic stress disorder) F43.10 Active 04253147 Problem Schizoaffective disorder, unspecified F25.9 Active 44534344 Problem Gastroesophageal reflux disease with esophagitis K21.0 Active 095209955 Problem Anxiety disorder, unspecified F41.9 Active 142140393 Problem History of breast cancer Z85.3 Active 927656900 Problem Unspecified mood [affective] disorder F39 Active 358597665 Problem Restless leg syndrome G25.81 Active 02728875 Problem Hypoxia, sleep related G47.34 Active 18723544 Problem Overactive bladder N32.81 Active 207682090 Problem Other chronic pain G89.29 Active 61554903 Problem Claustrophobia F40.240 Active 44780088 Problem Arthralgia of right hip M25.551 Active 69517328 Problem Confusion R41.0 Active 210968119 Problem Stroke-like symptoms R29.90 Active 799663566 Problem Cough R05 Active 29426522 Problem Neuropathy G62.9 Active 175274710 Problem Open wound T14.8 Active 039717680 Problem Seasonal allergic rhinitis due to pollen J30.1 Active 51691999 Problem Fibromyalgia M79.7 Active 43642413 Problem Acute right-sided low back pain without sciatica M54.5 Active 508462800 Problem COPD (chronic obstructive pulmonary disease) J44.9 Active 66117378 Problem Intermittent drowsiness R40.0 Active 210249428 Problem Arthralgia of right ankle M25.571 Active 011689203 Problem Arthralgia of right knee M25.561 Active 49130491 Problem Sleep apnea in adult G47.33 Active 77043294 Problem Stress incontinence N39.3 Active 00966962 Problem Burn of stomach, initial encounter T28.2XXA Active 86897732 Problem Fatigue, unspecified type R53.83 Active 42570547 ALLERGIES No Information SOCIAL HISTORY Never Assessed [...]
--- OUTSIDE RECORDS SUMMARY | 2017-03-05 22:33 | XMS REPORT ---
Author Author BROOKE LAMB Organization [facility] Address [address] [place] [address] Care Team Providers Care Exhibition Organiser Name Role Phone HUNG LAMBE Unavailable PROBLEMS Type Condition ICD9-CM Code [id number] Code Onset Dates Condition Status SNOMED Code Problem Essential hypertension I10 Active 87956548 Problem GERD (gastroesophageal reflux disease) K21.9 Active 036602173 Problem Breast cancer C50.919 Active 790063148 Problem Eye exam, routine Z01.00 Active 741372380 Problem Obesity E66.9 Active 447475239 Problem Arthritis M19.90 Active 5848725 Problem MAYRA (generalized anxiety disorder) F41.1 Active 75665518 Problem PTSD (post-traumatic stress disorder) F43.10 Active 17045082 Problem Schizoaffective disorder, unspecified F25.9 Active 72780766 Problem Gastroesophageal reflux disease with esophagitis K21.0 Active 932686733 Problem Anxiety disorder, unspecified F41.9 Active 073183569 Problem History of breast cancer Z85.3 Active 179865133 Problem Unspecified mood [affective] disorder F39 Active 320237403 Problem Restless leg syndrome G25.81 Active 48307311 Problem Hypoxia, sleep related G47.34 Active 48431445 Problem Overactive bladder N32.81 Active 695755449 Problem Other chronic pain G89.29 Active 97947441 Problem Claustrophobia F40.240 Active 35257968 Problem Arthralgia of right hip M25.551 Active 34348281 Problem Confusion R41.0 Active 589130897 Problem Stroke-like symptoms R29.90 Active 513903565 Problem Cough R05 Active 93610924 Problem Neuropathy G62.9 Active 945809308 Problem Open wound T14.8 Active 698958438 Problem Seasonal allergic rhinitis due to pollen J30.1 Active 81848331 Problem Fibromyalgia M79.7 Active 35254485 Problem Acute right-sided low back pain without sciatica M54.5 Active 691659057 Problem COPD (chronic obstructive pulmonary disease) J44.9 Active 09215513 Problem Intermittent drowsiness R40.0 Active 553787083 Problem Arthralgia of right ankle M25.571 Active 453903121 Problem Arthralgia of right knee M25.561 Active 08628535 Problem Sleep apnea in adult G47.33 Active 80696875 Problem Stress incontinence N39.3 Active 44608366 Problem Burn of stomach, initial encounter T28.2XXA Active 93848487 Problem Fatigue, unspecified type R53.83 Active 94551296 ALLERGIES No Information SOCIAL HISTORY Never Assessed [...]
[2017-03-05 22:35] LABS: BASOPHILS # (AUTO) 0.1 10^3/uL (0.0-0.1); BASOPHILS % (AUTO) 1 % (0-10); EOSINOPHILS # (AUTO) 1.1 10^3/uL (0.0-0.3); EOSINOPHILS % (AUTO) 10 % (0-10); LYMPHOCYTES # (AUTO) 3.5 X 10^3 (1.0-4.0); LYMPHOCYTES % (AUTO) 31 % (12-44); MEAN CORPUSCULAR HEMOGLOBIN 27 PG (25-34); MEAN CORPUSCULAR HGB CONC 31 G/DL (32-36); MEAN CORPUSCULAR VOLUME 86 FL (80-99); MEAN PLATELET VOLUME 8.6 FL (7.4-10.4); MONOCYTES # (AUTO) 0.6 X 10^3 (0.0-1.0); MONOCYTES % (AUTO) 6 % (0-12); NEUTROPHILS # (AUTO) 5.8 X 10^3 (1.8-7.8); NEUTROPHILS % (AUTO) 53 % (42-75); PLATELET COUNT 492 10^3/uL (130-400); RED BLOOD COUNT 3.94 10^6/uL (4.35-5.85); RED CELL DISTRIBUTION WIDTH 12.3 % (10.0-14.5); WHITE BLOOD COUNT 11.1 10^3/uL (4.3-11.0)
--- OUTSIDE RECORDS SUMMARY | 2017-03-05 22:37 | XMS REPORT ---
Author Author BROOKE LAMB Organization [facility] Address [address] [place] [address] Care Team Providers Care Rejected Items Clerk Name Role Phone HUNG LAMBE Unavailable PROBLEMS Type Condition ICD9-CM Code [id number] Code Onset Dates Condition Status SNOMED Code Problem Essential hypertension I10 Active 70657826 Problem GERD (gastroesophageal reflux disease) K21.9 Active 033429917 Problem Breast cancer C50.919 Active 439348524 Problem Eye exam, routine Z01.00 Active 269569495 Problem Obesity E66.9 Active 609827379 Problem Arthritis M19.90 Active 4536100 Problem MAYRA (generalized anxiety disorder) F41.1 Active 68012149 Problem PTSD (post-traumatic stress disorder) F43.10 Active 69289678 Problem Schizoaffective disorder, unspecified F25.9 Active 78960337 Problem Gastroesophageal reflux disease with esophagitis K21.0 Active 717117855 Problem Anxiety disorder, unspecified F41.9 Active 088893140 Problem History of breast cancer Z85.3 Active 221181235 Problem Unspecified mood [affective] disorder F39 Active 290949270 Problem Restless leg syndrome G25.81 Active 58339903 Problem Hypoxia, sleep related G47.34 Active 42568545 Problem Overactive bladder N32.81 Active 302253298 Problem Other chronic pain G89.29 Active 45910930 Problem Claustrophobia F40.240 Active 20324508 Problem Arthralgia of right hip M25.551 Active 38599559 Problem Confusion R41.0 Active 874151956 Problem Stroke-like symptoms R29.90 Active 400202939 Problem Cough R05 Active 69839385 Problem Neuropathy G62.9 Active 532288895 Problem Open wound T14.8 Active 352323298 Problem Seasonal allergic rhinitis due to pollen J30.1 Active 08146694 Problem Fibromyalgia M79.7 Active 61210962 Problem Acute right-sided low back pain without sciatica M54.5 Active 644015573 Problem COPD (chronic obstructive pulmonary disease) J44.9 Active 35950018 Problem Intermittent drowsiness R40.0 Active 146469172 Problem Arthralgia of right ankle M25.571 Active 226553440 Problem Arthralgia of right knee M25.561 Active 38601013 Problem Sleep apnea in adult G47.33 Active 66376778 Problem Stress incontinence N39.3 Active 68830555 Problem Burn of stomach, initial encounter T28.2XXA Active 56454318 Problem Fatigue, unspecified type R53.83 Active 99739551 ALLERGIES Substance Reaction Event Type Date Status Latuda mood swings Drug Allergy August, Active Prozac Worsened mood swings. Drug Allergy August, Active Propranolol HCl Unknown Drug Allergy August, Active Neurontin Memory Loss Drug Allergy August, Active Ambien Unknown Drug Allergy August, Active Advair Diskus dizziness, nausea Drug Allergy August, Active SOCIAL HISTORY Never Assessed PLAN OF CARE Activity Details Follow Up 2 Weeks, prn Reason: VITAL SIGNS Height 60 in 2016-08-31 Weight 208 lbs 2016-08-31 Temperature 98.4 degrees Fahrenheit 2016-08-31 Heart Rate 102 bpm 2016-08-31 Respiratory Rate 22 2016-08-31 BMI 40.62 kg/m2 2016-08-31 Blood pressure systolic 150 mmHg 2016-08-31 Blood pressure diastolic 90 mmHg 2016-08-31 MEDICATIONS Medication Instructions Dosage Frequency Start Date End Date Duration Status Singulair 10 mg Orally Once a day 1 tablet in the evening 24h August, 30 day(s) Active Diltiazem HCl 120 MG Orally daily TAKE 1 TABLET BY MOUTH 2 TIMES A DAY 24h Active Oxygen 2 L/NC subcutaneously at night only as directed Jul, Active Requip 4 MG Orally Once a day as directed 24h Feb, 30 days Active Lyrica 100 mg Orally Twice a day 1 capsule 12h August, Active Amitriptyline HCl 100 mg Orally Once at bedtime for sleep 1 tablet Apr Active VESIcare 5 mg Orally Once a day 1 tablet 24h August, Nov, 30 day(s) Active Pramipexole Dihydrochloride 0.25 MG Orally Once a day TAKE 3 TABLETS BY MOUTH AT BEDTIME 24h 30 days Active Symbicort 160-4.5 MCG/ACT Inhalation Twice a day 2 puffs 12h May, Active Albuterol Sulfate 90 mcg/actuation 2 puffs by Inhalation route every 4-6 hours as needed PRN cough or wheezing Oct, Active Ibuprofen 600 MG Orally every 6 hrs 1 tablet as needed for pain 6h Nov, 30 days Active Omeprazole 20 mg Orally 2 times a day TAKE 1 CAPSULE BY MOUTH TWICE DAILY 12h Active Albuterol Sulfate (2.5 MG/3ML) 0.083% Inhalation every 4-6 hours as needed for cough or wheeze 3 ml Jan, 30 days Active Exemestane 25 MG Orally Once a day 1 tablet with a meal 24h Active C-PAP Machine 1 L by inhalation route at bedtime at night Jun, Active TENS Unit 1 APPLY TO THE BACK 24h May, Active Contrave 8-90 MG Orally Twice a day one daily x 7 then one bid, then 2 in the am and one in pm, then bid 12h August, 30 day(s) Active RESULTS No Results PROCEDURES Procedure Date Ordered Result Body Site [facility] VISIT ESTABLISHED PATIENT August 31, 2016 THER/PROPH/DIAG INJ, SC/IM August 31, 2016 DEXAMETHASONE 4MG/ML (PER 1 MG) August 31, 2016 DEPO MEDROL 40 MG/ML August 31, 2016 IMMUNIZATIONS Vaccine Route Administration Date Status DEXAMETHASONE 4MG/ML (PER 1 MG) IM Intramuscular August 31, 2016 Administered DEPO MEDROL 40 MG/ML IM Intramuscular August 31, 2016 Administered MEDICAL (GENERAL) HISTORY Type Description [...]
--- OUTSIDE RECORDS SUMMARY | 2017-03-05 22:37 | XMS REPORT ---
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 Name Role Phone HUNG LAMBE Unavailable PROBLEMS Type Condition ICD9-CM Code ANW72-CY Code Onset Dates Condition Status SNOMED Code Problem Essential hypertension I10 Active 51150960 Problem GERD (gastroesophageal reflux disease) K21.9 Active 903830580 Problem Breast cancer C50.919 Active 966177859 Problem Eye exam, routine Z01.00 Active 169876409 Problem Obesity E66.9 Active 293539160 Problem Arthritis M19.90 Active 1985678 Problem MAYRA (generalized anxiety disorder) F41.1 Active 95460910 Problem PTSD (post-traumatic stress disorder) F43.10 Active 14909351 Problem Schizoaffective disorder, unspecified F25.9 Active 80860365 Problem Gastroesophageal reflux disease with esophagitis K21.0 Active 847978107 Problem Anxiety disorder, unspecified F41.9 Active 329550826 Problem History of breast cancer Z85.3 Active 557306015 Problem Unspecified mood [affective] disorder F39 Active 320242475 Problem Restless leg syndrome G25.81 Active 03265358 Problem Hypoxia, sleep related G47.34 Active 45219258 Problem Overactive bladder N32.81 Active 030217121 Problem Other chronic pain G89.29 Active 93109364 Problem Claustrophobia F40.240 Active 44908473 Problem Arthralgia of right hip M25.551 Active 13022387 Problem Confusion R41.0 Active 387164042 Problem Stroke-like symptoms R29.90 Active 334028773 Problem Cough R05 Active 79389347 Problem Neuropathy G62.9 Active 739403226 Problem Open wound T14.8 Active 486849444 Problem Seasonal allergic rhinitis due to pollen J30.1 Active 26991599 Problem Fibromyalgia M79.7 Active 28172457 Problem Acute right-sided low back pain without sciatica M54.5 Active 667475719 Problem COPD (chronic obstructive pulmonary disease) J44.9 Active 28783327 Problem Intermittent drowsiness R40.0 Active 694521375 Problem Arthralgia of right ankle M25.571 Active 700499676 Problem Arthralgia of right knee M25.561 Active 27429817 Problem Sleep apnea in adult G47.33 Active 56219109 Problem Stress incontinence N39.3 Active 09211385 Problem Burn of stomach, initial encounter T28.2XXA Active 84373449 Problem Fatigue, unspecified type R53.83 Active 93295244 ALLERGIES No Information SOCIAL HISTORY Never Assessed [...]
--- NOTE | 2017-03-05 22:40 | ED Integumentary General ---
General Chief Complaint: Skin/Wound Problems Stated Complaint: RT BREAST PAIN,FEVER,POST MASTECTOMY Source: patient, old records History of Present Illness Time seen by provider: 22:15 Initial Comments PT ARRIVES VIA POV PT HAD BILATERAL MASTECTOMY 02/01/17 AT [facility] BY DR. BHATT. PT SAW HIM ON Wednesday03/01/17 AND WAS NOT HAVING ANY PROBLEMS AT THAT TIME. THE WEDNESDAY BEFORE THAT, 02/22/17, HE DRAINED FLUID FROM THE RIGHT MASTECTOMY SITE. HAS HAD TO HAVE FLUID DRAINED FROM BOTH SIDES SINCE SURGERY, BUT MOSTLY FROM THE RIGHT. PT STATES SHE HAS BEGAN TO HAVE INCREASED PAIN, REDNESS AND SWELLING TO THE RIGHT MASTECTOMY SITE TODAY, AND HAS HAD INTERMITTENT SWEATS--HAS NOT CHECKED HER TEMP PT STATES SHE HAS SEEN DR. GARSIA FOR ONCOLOGY, AND HAS BEEN TOLD THAT SHE DOES NOT HAVE TO HAVE CHEMO OR RADIATION AT THIS TIME. PCP:CARLA Allergies and Home Medications Allergies Coded Allergies: fluoxetine (Unverified Allergy, Mild, 03/05/17) zolpidem (Verified Allergy, Unknown, "MAKES ME ANGRY LIKE A BEAR", 05/09/15 ) fluticasone (Verified Adverse Reaction, Unknown, DOESN'T WORK, 05/09/15) gabapentin (Verified Adverse Reaction, Unknown, NOT EFFECTIVE, 05/09/15) salmeterol (Verified Adverse Reaction, Unknown, DOESN'T WORK, 05/09/15) Uncoded Allergies: PROPANOLOL (Adverse Reaction, Unknown, NOT EFFECTIVE, 05/09/15) Home Medications Amitriptyline Hcl 100 Mg Tablet, 200 MG PO HS, (Reported) TAKE 2 (100MG) TABS Budesonide/Formoterol Fumarate 10.2 Gm Hfa.aer.ad, 2 PUFF IH BID, (Reported) Calcium Carbonate/Vitamin D3 1 Each Capsule, 1 EACH PO, (Reported) Clindamycin HCl 300 Mg Capsule, 300 MG PO QID, #40 Prescribed by: KENDY SELLERS on 03/05/172318 Exemestane 25 Mg Tablet, 25 MG PO, (Reported) Famotidine 40 Mg Tablet, 40 MG PO DAILY, #10 Prescribed by: KENDY SELLERS on 02/11/171946 Hydroxyzine Pamoate 50 Mg Capsule, 50 MG PO Q6H, #20 Prescribed by: KENDY SELLERS on 02/11/171946 Lactobacillus Acidophilus 1 Each Capsule, 2 EACH PO QID, #80 Prescribed by: KENDY SELLERS on 03/05/179 Melatonin 5 Mg Tablet, 10 MG PO, (Reported) Mometasone Furoate 15 Gm Cream..g., 0 TP TID, #1 Prescribed by: KENDY SELLERS on 02/11/171946 Mometasone/Formoterol 13 Gm Hfa.aer.ad, 1 PUFF IH BID PRN for SHORTNESS OF BREATH, (Reported) PRN SOB Montelukast Sodium 10 Mg Tablet, 10 MG PO, (Reported) Ropinirole HCl 4 Mg Tab, 4 MG PO, (Reported) Solifenacin Succinate 5 Mg Tablet, 5 MG PO, (Reported) Constitutional: see HPI, diaphoresis Respiratory: no symptoms reported, No cough, No short of breath Cardiovascular: no symptoms reported Gastrointestinal: no symptoms reported Musculoskeletal: no symptoms reported Skin: see HPI Psychiatric/Neurological: No Symptoms Reported Past Izesmyu-Doorsc-Mecnod Hx Patient Social History Alcohol Use: Denies Use Recreational Drug Use: No Smoking Status: Former Smoker Type Used: Cigarettes Former Smoker, Quit: Apr 19, 2005 Recent Foreign Travel: No Contact w/Someone Who Travel: No Recent Hopitalizations: No Immunizations Up To Date Tetanus Booster (TDap): More than 5yrs Date of Pneumonia Vaccine: Jun 21, 2013 Date of Influenza Vaccine: Jan 17, 2015 Seasonal Allergies Seasonal Allergies: Yes Surgeries History of Surgeries: Yes (BILATERAL MASTECTOMY 02/01/17; CYSTOSCOPY X 2; ANTERIOR REPAIR; LEFT KNEE SCOPE X 3; BILATERAL CARPAL TUNNEL; BILATERAL ELBOW NERVE SURGERY: ) Surgeries: Appendectomy, Bladder Surgery, Breast, Section, Hysterectomy, Tubal Ligation Respiratory History of Respiratory Disorde: Yes (USES O2 AT HOME PRN) Respiratory Disorders: COPD Cardiovascular History of Cardiac Disorders: Yes Cardiac Disorders: Hypertension Neurological History of Neurological Disord: No 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 System Hx 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 Disorders: Yes Sexually Transmitted Disease: No HIV/AIDS: No Female 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 Disorders: Menstrual Problems 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 Genitourinary History of Genitourinary Disor: Yes Genitourinary Disorders: Bladder Infection, UTI-Chronic Gastrointestinal History of Gastrointestinal Di: Yes Gastrointestinal Disorders: Gastroesophageal Reflux, Esophagitis, Hiatal Hernia Musculoskeletal History of Musculoskeletal Dis: Yes (BULGING DISK IN BACK; RESTLESS LEG SYNDROME) Musculoskeletal Disorders: Degenerate Disk Disease, Arthritis, Chronic Back Pain Endocrine History of Endocrine Disorders: No HEENT History of HEENT Disorders: Yes HEENT Disorders: Cataract Cancer History of Cancer: Yes Cancer: Breast Did You Recieve Any Treatments: Yes Type of Tx Receive: Surgical Intervention Psychosocial History of Psychiatric Problem: Yes (EXTENSIVE PSYCH ISSUES) Behavioral Health Disorders: ADD/ADHD, Sleep Difficulties, Anxiety, Suicide Attempts, Bipolar, Depression Integumentary History of Skin or Integumenta: Yes (YEAST INFECTION UNDER ABDOMINAL FOLD) Blood Transfusions History of Blood Disorders: No Adverse Reaction to a Blood Tr: No Family Medical History Family Medial History: Cancer GRANDPARENTS Congestive heart failure GRANDPARENTS Family history: Cardiovascular disease GRANDPARENTS Family history: Hypertension GRANDPARENTS Heart disease GRANDPARENTS Myocardial infarction GRANDPARENTS Stroke 03 MOTHER, Onset:60 years & older No Family History of: Abdominal aortic aneurysm Family history: Allergy Family history: Alzheimer's disease Family history: Asthma Family history: Diabetes mellitus Family history: Gastrointestinal disease Family history: Thyroid disorder Hereditary disease Seizure disorder Physical Exam Vital Signs Vital Sign - Last 12Hours 03/05/17 03/05/17 22:10 23:42 Temp 98.8 Pulse 113 Resp 18 B/P (MAP) 141/101 Pulse Ox 98 O2 Delivery Room Air Capillary Refill : General Appearance: no apparent distress, obese, other (CONSTANT MOVMENTS, SOMEWHAT ANXIOUS) Cardiovascular: regular rate, rhythm, no edema, no murmur Respiratory: normal breath sounds, no respiratory distress, no accessory muscle use Gastrointestinal: non tender, soft Back: normal inspection, no CVA tenderness Extremities: normal inspection, no pedal edema, normal capillary refill Neurologic/Psychiatric: land measurer II-XII nml as tested, no motor/sensory deficits, alert, oriented x 3 Skin: normal color, warm/dry, other (LEFT MASTECTOMY SITE WELL HEALED WITH A FEW SCABBED AREAS. NO ERYTHEMA, WARMTH, INDURATION, OR TENDERNESS. RIGHT MASTECTOMY SITE WITH INDURATION, ERYTHEMA, WARMTH AND TENDERNESS TO SUPERIOR ASPECT/MID INCISION. NO DISCRETE AREAS OF FLUCTUANCE OR MASS) Additional Procedures : Progress RIGHT MASTECTOMY SITE CLEANSED WITH CHLORHEXIDINE AT LEAST 45 ML OF CLOUDY SEROUS FLUID ASPIRATED FROM SITE, WITH DECREASE IN SWELLING NOTED INSTANT RELIEF OF SYMPTOMS FOR PT PT TOLERATED WELL. Progress/Results/Core Measures Results/Orders Lab Results Laboratory Tests Test 03/05/17 22:20 Range/Units White Blood Count 11.1 H 4.3-11.0 10^3/uL Red Blood Count 3.94 L 4.35-5.85 10^6/uL Hemoglobin 10.5 L 11.5-16.0 G/DL Hematocrit 34 L 35-52 % Mean Corpuscular Volume 86 80-99 FL Mean Corpuscular Hemoglobin 27 25-34 PG Mean Corpuscular Hemoglobin Concent 31 L 32-36 G/DL Red Cell Distribution Width 12.3 10.0-14.5 % Platelet Count 492 H 130-400 10^3/uL Mean Platelet Volume 8.6 7.4-10.4 FL Neutrophils (%) (Auto) 53 42-75 % Lymphocytes (%) (Auto) 31 12-44 % Monocytes (%) (Auto) 6 0-12 % Eosinophils (%) (Auto) 10 0-10 % Basophils (%) (Auto) 1 0-10 % Neutrophils # (Auto) 5.8 1.8-7.8 X 10^3 Lymphocytes # (Auto) 3.5 1.0-4.0 X 10^3 Monocytes # (Auto) 0.6 0.0-1.0 X 10^3 Eosinophils # (Auto) 1.1 H 0.0-0.3 10^3/uL Basophils # (Auto) 0.1 0.0-0.1 10^3/uL Sodium Level 140 135-145 MMOL/L Potassium Level 3.7 3.6-5.0 MMOL/L Chloride Level 105 98-107 MMOL/L Carbon Dioxide Level 23 21-32 MMOL/L Anion Gap 12 5-14 MMOL/L Blood Urea Nitrogen 11 7-18 MG/DL Creatinine 1.00 0.60-1.30 MG/DL Estimat Glomerular Filtration Rate 59 BUN/Creatinine Ratio 11 Glucose Level 97 70-105 MG/DL Lactic Acid Level 1.05 0.50-2.00 MMOL/L Calcium Level 9.1 8.5-10.1 MG/DL Total Bilirubin 0.2 0.1-1.0 MG/DL Aspartate Amino Transf (AST/SGOT) 17 5-34 U/L Alanine Aminotransferase (ALT/SGPT) 31 0-55 U/L Alkaline Phosphatase 95 40-136 U/L Total Protein 7.1 6.4-8.2 GM/DL Albumin 3.8 3.2-4.5 GM/DL My Orders Orders - KENDY SELLERS DO Saline Lock/Iv-Start (03/05/17 22:16) Monitor-Rhythm Ecg Trace Only (03/05/17 22:16) Cbc With Automated Diff (03/05/17 22:16) Comprehensive Metabolic Panel (03/05/17 22:16) Lactic Acid Analyzer (03/05/17 22:16) Blood Culture (03/05/17 22:16) Chest Pa/Lat (2 View) (03/05/17 22:16) Clindamycin Injection (Cleocin Injection (03/05/17 23:00) Clindamycin Injection (Cleocin Injection (03/05/17 23:06) Ns (Ivpb) (Sodium Chloride 0.9% Ivpb Bag (03/05/17 23:06) Body Fluid Culture (03/05/17 23:10) Medications Given in ED Current Medications Medications Dose Ordered Sig/Rolo Route Start Time Stop Time Status Last Admin Dose Admin Clindamycin Phosphate 900 mg/ Sodium Chloride 56 ml @ 100 mls/hr ONCE ONCE IV 03/05/17 23:00 03/05/17 23:33 DC 03/05/17 23:17 100 MLS/HR Vital Signs/I&O Vital Sign - Last 12Hours 03/05/17 03/05/17 22:10 23:42 Temp 98.8 97.3 Pulse 113 100 Resp 18 26 B/P (MAP) 141/101 Pulse Ox 98 96 O2 Delivery Room Air Departure Impression Impression: Primary Impression: CELLULITIS RIGHT MASTECTOMY SITE Additional Impression: SEROMA RIGHT MASTECTOMY SITE Disposition: 01 HOME, SELF-CARE Condition: Improved Departure-Patient Inst. Referrals: PHILIPPE SALGUERO DO (PCP) Primary Care Physician BROOKE LAMB (Family) Primary Care Physician Patient Instructions: Cellulitis (Skin Infection), Adult (DC), Fluid Culture, Surgical Wound (DC), Wound Infection Add. Discharge Instructions: TYLENOL AND MOTRIN NEEDED FOR PAIN FOLLOW UP WITH DR. BHATT, ON WEDNESDAY FOR FURTHER CARE All discharge instructions reviewed with patient and/or family. Voiced understanding. Scripts Clindamycin HCl (Clindamycin HCl) 300 Mg Capsule 300 MG PO QID for FOR INFECTION, #40 CAP Prov: KENDY SELLERS DO 03/05/17 Lactobacillus Acidophilus (Acidophilus) 1 Each Capsule 2 EACH PO QID, #80 CAP Prov: KENDY SELLERS DO 03/05/17 KENDY SELLERS DO Mar 05, 2017 22:40
[2017-03-05 22:49] LABS: ALBUMIN 3.8 GM/DL (3.2-4.5); BILIRUBIN,TOTAL 0.2 MG/DL (0.1-1.0); CALCIUM 9.1 MG/DL (8.5-10.1); POTASSIUM 3.7 MMOL/L (3.6-5.0); TOTAL PROTEIN 7.1 GM/DL (6.4-8.2)
[2017-03-05] MEDS ORDERED: CLINDAMYCIN INJECTION 900 MG in NS (IVPB) 50 ML IV ONE (23:00)
[2017-03-05] MEDS ORDERED: NS (IVPB) 50 ML ONE (23:06)
[2017-03-05] MEDS ORDERED: CLINDAMYCIN 900 MG/6ML (CLEOCIN) VIAL ONE (23:06)
--- OUTSIDE RECORDS SUMMARY | 2017-03-05 23:11 | XMS REPORT | Continuity of Care Document ---
Author Author [facility] Address Unknown Phone Unavailable Allergies Active Description [...] Allergy 07/21/2012 Yes No Known Drug Allergies [id number] Drug Allergy Unknown N/ A 05/17/2013 Yes fluoxetine [id number] Drug Allergy Mild N/A 11/20/2014 Yes fluticasone [id number] Drug Allergy Unknown DOESN'T WORK 05/09/2015 Yes gabapentin [id number] Drug Allergy Unknown NOT EFFECTIVE 05/09/2015 Yes PROPANOLOL PROPANOLOL Unknown NOT EFFECTIVE 05/09/2015 Yes salmeterol [id number] Drug Allergy Unknown DOESN'T WORK 05/09/2015 Yes zolpidem [id number] Drug Allergy Unknown "MAKES ME ANGRY 05/09/2015 [...] 03/18/1103 ROCÍO STERN MD Ot Z79.899 OTHER LONGTERM (CURRENT) DRUG THERAPY 12/18/2009 Ot 530.81 12/18/2009 [...] Hemorrhage Or Perforation Without Obstruction 03/07/2010 ASHELY AS400 DEVELOPER, BOY J 724.5 Backache Unspecified 03/07/2010 ASHELY AS400 DEVELOPER, BOY J 532.30 Acute Duodenal Ulcer Without Hemorrhage Or Perforation Without Obstruction 03/07/2010 ASHELY AS400 DEVELOPER, BOY J 724.5 Backache Unspecified 03/07/2010 ASHELY AS400 DEVELOPER, BOY J 532.30 Acute Duodenal Ulcer Without Hemorrhage Or Perforation Without Obstruction 03/07/2010 ASHELY AS400 DEVELOPER, BOY J 724.5 Backache Unspecified 03/07/2010 ASHELY AS400 DEVELOPER, BOY J 532.30 Acute Duodenal Ulcer Without Hemorrhage Or Perforation Without Obstruction 03/07/2010 ASHELY AS400 DEVELOPER, BOY J 724.5 Backache Unspecified 03/07/2010 SALGUERO DO, PHILIPPE K 532.30 Acute Duodenal Ulcer Without Hemorrhage Or Perforation Without Obstruction 03/07/2010 SALGUERO DO, PHILIPPE K 724.5 Backache Unspecified 03/07/2010 SALGUERO DO, PHILIPPE K 532.30 Acute Duodenal Ulcer Without Hemorrhage Or Perforation Without Obstruction 03/07/2010 SALGUERO DO, PHILIPPE K 724.5 Backache Unspecified 03/07/2010 ASHELY AS400 DEVELOPER, BOY J 532.30 Acute Duodenal Ulcer Without Hemorrhage Or Perforation Without Obstruction 03/07/2010 ASHELY AS400 DEVELOPER, BOY J 724.5 Backache Unspecified 03/07/2010 ASHELY AS400 DEVELOPER, BOY J 532.30 Acute Duodenal Ulcer Without Hemorrhage Or Perforation Without Obstruction 03/07/2010 ASHELY AS400 DEVELOPER, BOY J 724.5 Backache Unspecified 03/07/2010 ASHELY AS400 DEVELOPER, BOY J 532.30 Acute Duodenal Ulcer Without Hemorrhage Or Perforation Without Obstruction 03/07/2010 ASHELY AS400 DEVELOPER, BOY J 724.5 Backache Unspecified 03/07/2010 SALGUERO DO, PHILIPPE K 532.30 Acute Duodenal Ulcer Without Hemorrhage Or Perforation Without Obstruction 03/07/2010 SLAGUERO DO, PHILIPPE K 724.5 Backache Unspecified 03/07/2010 ASHELY AS400 DEVELOPER, BOY J 532.30 Acute Duodenal Ulcer Without Hemorrhage Or Perforation Without Obstruction 03/07/2010 ASHELY AS400 DEVELOPER, BOY J 724.5 Backache Unspecified 03/07/2010 [facility] Acute Duodenal Ulcer Without Hemorrhage Or Perforation Without Obstruction 03/07/2010 [facility], JACKIE R 724.5 Backache Unspecified 03/07/2010 SALGUERO DO, PHILIPPE K 532.30 Acute Duodenal Ulcer Without Hemorrhage Or Perforation Without Obstruction 03/07/2010 SALGUERO DO, PHILIPPE K 724.5 Backache Unspecified 03/07/2010 SALGUERO DO, PHILIPPE K 532.30 Acute Duodenal Ulcer Without Hemorrhage Or Perforation Without Obstruction 03/07/2010 SALGUERO DO, PHILIPPE K 724.5 Backache Unspecified 03/07/2010 MOY AS400 DEVELOPER, CHRIS A 532.30 Acute Duodenal Ulcer Without Hemorrhage Or Perforation Without Obstruction 03/07/2010 MOY AS400 DEVELOPER, CHRIS A 724.5 Backache Unspecified 03/07/2010 SALGUERO DO, PHILIPPE K 532.30 Acute Duodenal Ulcer Without Hemorrhage Or Perforation Without Obstruction 03/07/2010 SALGUERO DO, PHILIPPE K 724.5 Backache Unspecified 03/07/2010 ASHELY AS400 DEVELOPER, BOY J 532.30 Acute Duodenal Ulcer Without Hemorrhage Or Perforation Without Obstruction 03/07/2010 ASHELY AS400 DEVELOPER, BOY J 724.5 Backache Unspecified 03/07/2010 SALGUERO [...] OSTEOARTHROSIS GENERALIZED INVOLVING UNSPECIFIED SITE 03/25/2010 ASHELY AS400 DEVELOPER, BOY J 314.00 ATTENTION DEFICIT DISORDER WITHOUT HYPERACTIVITY 03/25/2010 ASHELY AS400 DEVELOPER, BOY J 333.94 RESTLESS LEGS SYNDROME (RLS) 03/25/2010 ASHELY AS400 DEVELOPER, BOY J 715.00 OSTEOARTHROSIS GENERALIZED INVOLVING UNSPECIFIED [...] OSTEOARTHROSIS GENERALIZED INVOLVING UNSPECIFIED SITE 03/25/2010 ASHELY AS400 DEVELOPER, BOY J 314.00 ATTENTION DEFICIT DISORDER WITHOUT HYPERACTIVITY 03/25/2010 ASHELY AS400 DEVELOPER, BOY J 333.94 RESTLESS LEGS SYNDROME (RLS) 03/25/2010 ASHELY AS400 DEVELOPER, BOY J 715.00 OSTEOARTHROSIS GENERALIZED INVOLVING UNSPECIFIED SITE 03/25/2010 ASHELY AS400 DEVELOPER, BOY J 314.00 ATTENTION DEFICIT DISORDER WITHOUT HYPERACTIVITY 03/25/2010 ASHELY AS400 DEVELOPER, BOY J 333.94 RESTLESS LEGS SYNDROME (RLS) 03/25/2010 ASHELY AS400 DEVELOPER, BOY J 715.00 OSTEOARTHROSIS GENERALIZED INVOLVING UNSPECIFIED SITE 03/25/2010 ASHELY AS400 DEVELOPER, BOY J 314.00 ATTENTION DEFICIT DISORDER WITHOUT [...] OSTEOARTHROSIS GENERALIZED INVOLVING UNSPECIFIED SITE 03/25/2010 [facility]ET [facility], JACKIE R 314.00 ATTENTION DEFICIT DISORDER WITHOUT [...] 314.00 ATTENTION DEFICIT DISORDER WITHOUT HYPERACTIVITY 03/25/2010 SALGUEOR DO, PHILIPPE K 333.94 RESTLESS LEGS SYNDROME [...] J 368.9 Unspecified Visual Disturbance 05/26/2010 ASHELY AS400 DEVELOPER, BOY J 333.85 TARDIVE DYSKINESIA DRUG-INDUCED 05/26/2010 ASHELY AS400 DEVELOPER, BOY J 368.9 Unspecified Visual Disturbance 05/26/2010 SALGUERO DO, PHILIPPE K 333.85 TARDIVE DYSKINESIA DRUG-INDUCED 05/26/2010 SALGUERO DO, PHILIPPE K 368.9 Unspecified Visual Disturbance 05/26/2010 SALGUERO DO, PHILIPPE K 333.85 TARDIVE DYSKINESIA DRUG-INDUCED 05/26/2010 SALGUERO DO, PHILIPPE K 368.9 Unspecified Visual Disturbance 05/26/2010 ASHELY AS400 DEVELOPER, BOY J 333.85 TARDIVE DYSKINESIA DRUG-INDUCED 05/26/2010 ASHELY AS400 DEVELOPER, BOY J 368.9 Unspecified Visual Disturbance 05/26/2010 WHITE DDS, DEEDEE J 333.85 TARDIVE DYSKINESIA DRUG-INDUCED 05/26/2010 WHITE DDS, DEEDEE J 368.9 Unspecified Visual Disturbance 05/26/2010 WHITE DDS, DEEDEE J 333.85 TARDIVE DYSKINESIA DRUG-INDUCED 05/26/2010 WHITE DDS, DEEDEE J 368.9 Unspecified Visual Disturbance 05/26/2010 SALGUERO DO, PHILIPPE K 333.85 TARDIVE DYSKINESIA DRUG-INDUCED 05/26/2010 SALGUERO DO, PHILIPPE K 368.9 Unspecified Visual Disturbance 05/26/2010 ASHELY AS400 DEVELOPER, BOY J 333.85 TARDIVE DYSKINESIA DRUG-INDUCED 05/26/2010 ASHELY AS400 DEVELOPER, BOY J 368.9 Unspecified Visual Disturbance 05/26/2010 ASHELY AS400 DEVELOPER, BOY J 333.85 TARDIVE DYSKINESIA DRUG-INDUCED 05/26/2010 ASHELY AS400 DEVELOPER, BOY J 368.9 Unspecified Visual Disturbance 05/26/2010 ASHELY AS400 DEVELOPER, BOY J 333.85 TARDIVE DYSKINESIA DRUG-INDUCED 05/26/2010 ASHELY AS400 DEVELOPER, BOY J 368.9 Unspecified Visual Disturbance 05/26/2010 ASHELY AS400 DEVELOPER, BOY J 333.85 TARDIVE DYSKINESIA DRUG-INDUCED 05/26/2010 ASHELY AS400 DEVELOPER, BOY J 368.9 Unspecified Visual Disturbance 05/26/2010 SALGUERO DO, PHILIPPE K 333.85 TARDIVE DYSKINESIA DRUG-INDUCED 05/26/2010 SALGUERO DO, PHILIPPE K 368.9 Unspecified Visual Disturbance 05/26/2010 SALGUERO DO, PHILIPPE K 333.85 TARDIVE DYSKINESIA DRUG-INDUCED 05/26/2010 SALGUERO DO, PHILIPPE K 368.9 Unspecified Visual Disturbance 05/26/2010 ASHELY AS400 DEVELOPER, BOY J 333.85 TARDIVE DYSKINESIA DRUG-INDUCED 05/26/2010 ASHELY AS400 DEVELOPER, BOY J 368.9 Unspecified Visual Disturbance 05/26/2010 [...] BOY J 368.9 Unspecified Visual Disturbance 05/26/2010 [facility], JACKIE R 333.85 TARDIVE DYSKINESIA DRUG-INDUCED 05/26/2010 [facility], JACKIE R 368.9 Unspecified Visual Disturbance 05/26/2010 SALGUERO DO, PHILIPPE K 333.85 TARDIVE DYSKINESIA DRUG-INDUCED 05/26/2010 SALGUERO DO, PHILIPPE K 368.9 Unspecified Visual Disturbance 05/26/2010 SALGUERO DO, PHILIPPE K 333.85 TARDIVE DYSKINESIA DRUG-INDUCED 05/26/2010 SALGUERO DO, PHILIPPE K 368.9 Unspecified Visual Disturbance 05/26/2010 MOY AS400 DEVELOPER, CHRIS A 333.85 TARDIVE DYSKINESIA DRUG-INDUCED 05/26/2010 MOY AS400 DEVELOPER, CHRIS A 368.9 Unspecified Visual Disturbance 05/26/2010 SALGUERO DO PHILIPPE K 333.85 TARDIVE DYSKINESIA DRUG-INDUCED 05/26/2010 SALGUERO DO PHILIPPE K 368.9 Unspecified Visual Disturbance 05/26/2010 ASHELY AS400 DEVELOPER, BOY J 333.85 TARDIVE DYSKINESIA DRUG-INDUCED 05/26/2010 ASHELY AS400 DEVELOPER, BOY J 368.9 Unspecified Visual Disturbance 05/26/2010 [...] J 625.4 Premenstrual Tension Syndromes 07/22/2010 ASHELY AS400 DEVELOPER, BOY J 625.4 Premenstrual Tension Syndromes 07/22/2010 [...] BOY J 625.4 Premenstrual Tension Syndromes 07/22/2010 [facility], JACKIE Eastman 625.4 Premenstrual Tension Syndromes 07/22/2010 [...] DEEDEE J 706.1 Other Acne 09/10/2010 ASHELY AS400 DEVELOPER, BOY J 706.1 Other Acne 09/10/2010 SALGUERO DO, PHILIPPE K 706.1 Other Acne 09/10/2010 SALGUERO DO, PHILIPPE K 706.1 Other Acne 09/10/2010 ASHELY AS400 DEVELOPER, BOY J 706.1 Other Acne 09/10/2010 WHITE DDS, DEEDEE J 706.1 Other Acne 09/10/2010 WHITE DDS, DEEDEE J 706.1 Other Acne 09/10/2010 SALGUERO DO, PHILIPPE K 706.1 Other Acne 09/10/2010 ASHELY AS400 DEVELOPER, BOY J 706.1 Other Acne 09/10/2010 ASHELY AS400 DEVELOPER, BOY J 706.1 Other Acne 09/10/2010 ASHELY AS400 DEVELOPER, BOY J 706.1 Other Acne 09/10/2010 ASHELY AS400 DEVELOPER, BOY J 706.1 Other Acne 09/10/2010 SALGUERO DO, PHILIPPE K 706.1 Other Acne 09/10/2010 SALGUERO DO, PHILIPPE K 706.1 Other Acne 09/10/2010 ASHELY AS400 DEVELOPER, BOY J 706.1 Other Acne 09/10/2010 ASHELY AS400 DEVELOPER, BOY J 706.1 Other Acne 09/10/2010 ASHELY AS400 DEVELOPER, BOY J 706.1 Other Acne 09/10/2010 SALGUERO DO, PHILIPPE K 706.1 Other Acne 09/10/2010 ASHELY AS400 DEVELOPER, BOY J 706.1 Other Acne 09/10/2010 IEVT [facility], JACKEI Eastman 706.1 Other Acne 09/10/2010 SALGUERO DO, [...] DO, PHILIPPE K 278.02 Overweight 11/20/2010 ASHELY AS400 DEVELOPER, BOY J 278.02 Overweight 11/20/2010 ASHELY AS400 DEVELOPER, BOY J 278.02 Overweight 11/20/2010 ASHELY AS400 DEVELOPER, BOY J 278.02 Overweight 11/20/2010 ASHELY AS400 DEVELOPER, BOY J 278.02 Overweight 11/20/2010 SALGUERO DO, PHILIPPE K 278.02 Overweight 11/20/2010 SALGUERO DO, PHILIPPE K 278.02 Overweight 11/20/2010 ASHELY AS400 DEVELOPER, BOY J 278.02 Overweight 11/20/2010 ASHELY AS400 DEVELOPER, OBY J 278.02 Overweight 11/20/2010 ASHELY AS400 DEVELOPER, BOY J 278.02 Overweight 11/20/2010 SALGUERO DO, PHILIPPE K 278.02 Overweight 11/20/2010 ASHELY AS400 DEVELOPER, BOY J 278.02 Overweight 11/20/2010 IVET [facility], JACKIE Eastman 278.02 Overweight 11/20/2010 SALGUERO DO, PHILIPPE K 278.02 Overweight 11/20/2010 SALGUERO DO, PHILIPPE K 278.02 Overweight 11/20/2010 CHRIS WINTER APRN 278.02 Overweight 11/20/2010 SALGUERO DO, PHILIPPE K 278.02 Overweight 11/20/2010 ASHELY AS400 DEVELOPER, BOY J 278.02 Overweight 11/20/2010 SALGUERO DO, [...] PHILIPPE K 307.42 PERSISTENT INSOMNIA 12/01/2010 ASHELY AS400 DEVELOPER, BOY J 307.42 PERSISTENT INSOMNIA 12/01/2010 WHITE DDS, DEEDEE J 307.42 PERSISTENT INSOMNIA 12/01/2010 WHITE DDS, DEEDEE J 307.42 PERSISTENT INSOMNIA 12/01/2010 SALGUERO DO, PHILIPPE K 307.42 PERSISTENT INSOMNIA 12/01/2010 ASHELY AS400 DEVELOPER, BOY J 307.42 PERSISTENT INSOMNIA 12/01/2010 ASHELY AS400 DEVELOPER, BOY J 307.42 PERSISTENT INSOMNIA 12/01/2010 ASHELY AS400 DEVELOPER, BOY J 307.42 PERSISTENT INSOMNIA 12/01/2010 ASHELY AS400 DEVELOPER, BOY J 307.42 PERSISTENT INSOMNIA 12/01/2010 SALGUERO DO, PHILIPPE K 307.42 PERSISTENT INSOMNIA 12/01/2010 SALGUERO DO, PHILIPPE K 307.42 PERSISTENT INSOMNIA 12/01/2010 ASHELY AS400 DEVELOPER, BOY J 307.42 PERSISTENT INSOMNIA 12/01/2010 ASHELY AS400 DEVELOPER, BOY J 307.42 PERSISTENT INSOMNIA 12/01/2010 ASHELY AS400 DEVELOPER, BOY J 307.42 PERSISTENT INSOMNIA 12/01/2010 SALGUERO DO PHILIPPE K 307.42 PERSISTENT INSOMNIA 12/01/2010 BOY LUND APRN 307.42 PERSISTENT INSOMNIA 12/01/2010 [facility], JACKIE R 307.42 PERSISTENT INSOMNIA 12/01/2010 SALGUERO [...] SALGUERO DO, PHILIPPE K 278.00 OBESITY 12/23/2010 SALGUEOR DO, PHILIPPE K 278.00 OBESITY 12/23/2010 SALGUERO DO, PHILIPPE K 278.00 OBESITY 12/23/2010 WHITE DEEDEE JACOBSON 278.00 OBESITY 12/23/2010 MAEVE NARAYANAN PA-C 278.00 OBESITY 12/23/2010 SALGUERO DO, PHILIPPE K 278.00 OBESITY 12/23/2010 WHITE IVONS, DEEDEE J 278.00 OBESITY 12/23/2010 ASHELY AS400 DEVELOPER, BOY J 278.00 OBESITY 12/23/2010 SALGUERO DO, PHILIPPE K 278.00 OBESITY 12/23/2010 SALGUERO DO, PHILIPPE K 278.00 OBESITY 12/23/2010 ASHELY AS400 DEVELOPER, BOY J 278.00 OBESITY 12/23/2010 WHITE DDS, DEEDEE J 278.00 OBESITY 12/23/2010 WHITE DDS, DEEDEE J 278.00 OBESITY 12/23/2010 SALGUERO DO, PHILIPPE K 278.00 OBESITY 12/23/2010 ASHELY AS400 DEVELOPER, BOY J 278.00 OBESITY 12/23/2010 ASHELY AS400 DEVELOPER, BOY J 278.00 OBESITY 12/23/2010 ASHELY AS400 DEVELOPER, BOY J 278.00 OBESITY 12/23/2010 ASHELY AS400 DEVELOPER, BOY J 278.00 OBESITY 12/23/2010 SALGUERO DO, PHILIPPE K 278.00 OBESITY 12/23/2010 SALGUERO DO, PHILIPPE K 278.00 OBESITY 12/23/2010 ASHELY AS400 DEVELOPER, BOY J 278.00 OBESITY 12/23/2010 ASHELY AS400 DEVELOPER, BOY J 278.00 OBESITY 12/23/2010 ASHELY AS400 DEVELOPER, BOY J 278.00 OBESITY 12/23/2010 SALGUERO DO, PHILIPPE K 278.00 OBESITY 12/23/2010 ASHELY AS400 DEVELOPER, BOY J 278.00 OBESITY 12/23/2010 [facility], JACKIE R 278.00 OBESITY 12/23/2010 SALGUERO DO, PHILIPPE K 278.00 OBESITY 12/23/2010 SALGUERO DO, PHILIPPE K 278.00 OBESITY 12/23/2010 CHRIS WINTER APRN 278.00 OBESITY 12/23/2010 SALGUERO DO, PHILIPPE K 278.00 OBESITY 12/23/2010 ASHELY AS400 DEVELOPER, BOY J 278.00 OBESITY 12/23/2010 SALGUERO DO, [...] SALGUERO DO, PHILIPPE K 782.61 Pallor 01/22/2011 ASLGUERO DO, PHILIPPE K 528.00 Stomatitis And Mucositis [...] DDS, DEEDEE J 782.61 Pallor 01/22/2011 ASHELY AS400 DEVELOPER, BOY J 528.00 Stomatitis And Mucositis Unspecified 01/22/2011 ASHELY AS400 DEVELOPER, BOY J 782.61 Pallor 01/22/2011 SALGUERO DO, PHILIPPE K 528.00 Stomatitis And Mucositis Unspecified 01/22/2011 SALGUERO DO, PHILIPPE K 782.61 Pallor 01/22/2011 SALGUERO DO, PHILIPPE K 528.00 Stomatitis And Mucositis Unspecified 01/22/2011 SALGUERO DO, PHILIPPE K 782.61 Pallor 01/22/2011 ASHELY VASQUES BOY J 528.00 Stomatitis And Mucositis Unspecified 01/22/2011 ASHELY VASQUES BYO J 782.61 Pallor 01/22/2011 WHITE DDS, DEEDEE [...] BOY LUND APRN J 782.61 Pallor 01/22/2011 [facility], JACKIE R 528.00 Stomatitis And Mucositis Unspecified 01/22/2011 [facility], JACKIE R 782.61 Pallor 01/22/2011 SALGUERO DO [...] APRN J 782.61 Pallor 01/22/2011 SALGUERO DO, PHILIPPE [...] DEEDEE J 276.51 Dehydration 03/05/2011 WHITE DDS, DEEEDE J 726.31 MEDIAL EPICONDYLITIS 03/05/2011 WHITE DDS, [...] SPANGLERN BOY J 276.51 Dehydration 03/05/2011 ASHELY AS400 DEVELOPER BOY J 726.31 MEDIAL EPICONDYLITIS 03/05/2011 ASHELY [...] V76.19 OTHER SCREENING BREAST EXAMINATION 03/05/2011 ASHELY AS400 DEVELOPER, BOY J 276.51 Dehydration 03/05/2011 JUAREZ LUND [...] J V76.19 OTHER SCREENING BREAST EXAMINATION 03/05/2011 [facility], JACKIE R 276.51 Dehydration 03/05/2011 [facility], JACKIE R 726.31 MEDIAL EPICONDYLITIS 03/05/2011 [facility], JACKIE R V76.19 OTHER SCREENING BREAST EXAMINATION [...] V76.19 OTHER SCREENING BREAST EXAMINATION 03/05/2011 ASHELY AS400 DEVELOPER, BOY J 276.51 Dehydration 03/05/2011 ASHELY AS400 DEVELOPER, BOY J 726.31 MEDIAL EPICONDYLITIS 03/05/2011 ASHELY AS400 DEVELOPER, BOY J V76.19 OTHER SCREENING BREAST EXAMINATION [...] CERVICAL CANCER SCREENING (PAP SMEAR) 03/31/2011 ASHELY AS400 DEVELOPER, BOY J 112.1 Candidiasis Vaginal 03/31/2011 ASHELY AS400 DEVELOPER, BOY J 611.72 Breast Lump Or Mass 03/31/2011 ASHELY AS400 DEVELOPER, BOY J 616.10 Vaginitis 03/31/2011 ASHELY AS400 DEVELOPER, BOY J 782.3 Edema 03/31/2011 ASHELY AS400 DEVELOPER, BOY J V76.10 BREAST CANCER SCREENING 03/31/2011 [...] NOEMY OLVERA PHILIPPE K 782.3 Edema 03/31/2011 NEOMY OLVERA PHILIPPE K V76.10 BREAST CANCER SCREENING [...] V76.2 CERVICAL CANCER SCREENING (PAP SMEAR) 03/31/2011 [facility], JACKIE R 112.1 Candidiasis Vaginal 03/31/2011 [facility], JACKIE R 611.72 Breast Lump Or Mass 03/31/2011 [facility], JACKIE R 616.10 Vaginitis 03/31/2011 [facility], JACKIE R 782.3 Edema 03/31/2011 [facility], JACKIE R V76.10 BREAST CANCER SCREENING 03/31/2011 [facility], JACKIE R V76.2 CERVICAL CANCER SCREENING (PAP [...] K 724.4 LUMBAR RADICULOPATHY 04/23/2011 SALGUERO DO PHILPIPE K 799.22 Affect Irritable 04/23/2011 SALGUERO DO PHILIPPE K V58.69 taking high-risk medication 04/23/2011 NOEMY OLVERA PHILIPPE K V70.0 Preventive Medicine Estab Patient Checkup Adult 40-64 04/23/2011 BOY LUND APRN 724.4 LUMBAR RADICULOPATHY 04/23/2011 BOY LUND APRN 799.22 Affect Irritable 04/23/2011 BOY LUND APRN V58.69 taking high-risk medication 04/23/2011 BOY LUND APRN V70.0 Preventive Medicine Estab Patient Checkup Adult 40-64 04/23/2011 [facility], JACKIE R 724.4 LUMBAR RADICULOPATHY 04/23/2011 [facility], JACKIE R 799.22 Affect Irritable 04/23/2011 [facility], JACKIE R V58.69 taking high-risk medication 04/23/2011 [facility], JACKIE R V70.0 Preventive Medicine Estab Patient [...] BOY J 799.22 Affect Irritable 04/23/2011 ASHELY AS400 DEVELOPER, BOY J V58.69 taking high-risk medication 04/23/2011 [...] DO, PHILIPPE K 112.1 CANDIDIASIS VAGINAL 05/07/2011 SALGUEOR DO, PHILIPPE K 276.51 DEHYDRATION (Na, H2O) [...] DO, PHILIPPE K 564.00 CONSTIPATION 05/07/2011 ASHELY AS400 DEVELOPERJUAREZA J 112.1 CANDIDIASIS VAGINAL 05/07/2011 BOY LUND [...] DO, PHILIPPE K 564.00 CONSTIPATION 05/07/2011 ASHELY AS400 DEVELOPERJUAREZA J 112.1 CANDIDIASIS VAGINAL 05/07/2011 ASHELY AS400 DEVELOPERJUAREZA J 276.51 DEHYDRATION (Na, H2O) 05/07/2011 ASHELY AS400 DEVELOPER, BOY J 477.9 Rhinitis 05/07/2011 ASHELY VASQUES [...] LUND APRNA J 564.00 CONSTIPATION 05/07/2011 JUAREZ LUND APRNA [...] BOY LUND APRN J 564.00 CONSTIPATION 05/07/2011 [facility], JACKIE R 112.1 CANDIDIASIS VAGINAL 05/07/2011 [facility], JACKIE R 276.51 DEHYDRATION (Na, H2O) 05/07/2011 [facility], JACKIE R 477.9 Rhinitis 05/07/2011 [facility], JACKIE R 564.00 CONSTIPATION 05/07/2011 SALGUERO DO, PHILIPPE K 112.1 CANDIDIASIS VAGINAL 05/07/2011 SALGUERO DO, PHILIPPE K 276.51 DEHYDRATION (Na, H2O) 05/07/2011 SALGUERO DO, PHILIPPE K 477.9 Rhinitis 05/07/2011 SALUGERO DO, PHILIPPE K 564.00 CONSTIPATION 05/07/2011 SALGUERO DO, PHILIPPE K 112.1 CANDIDIASIS VAGINAL 05/07/2011 SALGUERO DO, PHILIPPE K 276.51 DEHYDRATION (Na, H2O) 05/07/2011 SALGUERO DO, PHILIPPE K 477.9 Rhinitis 05/07/2011 SALGUERO DO, PHILIPPE K 564.00 CONSTIPATION 05/07/2011 MOYCHRIS Curiel APRN A 112.1 CANDIDIASIS VAGINAL 05/07/2011 MOYCHRIS Curiel APRN A 276.51 DEHYDRATION (Na, H2O) 05/07/2011 MOYCHRIS Curiel APRN A 477.9 Rhinitis 05/07/2011 MOY AS400 DEVELOPER, CHRIS A 564.00 CONSTIPATION 05/07/2011 SALGUERO DO, PHILIPPE K 112.1 CANDIDIASIS VAGINAL 05/07/2011 SALGUERO DO, PHILIPPE K 276.51 DEHYDRATION (Na, H2O) 05/07/2011 SALGUERO DO, PHILIPPE K 477.9 Rhinitis 05/07/2011 SALGUERO DO, PHILIPPE K 564.00 CONSTIPATION 05/07/2011 ASHELY AS400 DEVELOPER, BOY J 112.1 CANDIDIASIS VAGINAL 05/07/2011 ASHELY AS400 DEVELOPER, BOY J 276.51 DEHYDRATION (Na, H2O) 05/07/2011 ASHELY AS400 DEVELOPER, BOY J 477.9 Rhinitis 05/07/2011 ASHELY AS400 DEVELOPER, BOY J 564.00 CONSTIPATION 05/07/2011 SALGUERO DO, [...] APRNA J 338.29 OTHER CHRONIC PAIN 05/25/2011 [facility], JACKIE R 338.29 OTHER CHRONIC PAIN 05/25/2011 [...] J 522.5 PERIAPICAL ALVEOLAR ABSCESS 05/30/2011 ASHELY AS400 DEVELOPER, BOY J 522.5 PERIAPICAL ALVEOLAR ABSCESS 05/30/2011 SALGUERO DO, PHILIPPE K 522.5 PERIAPICAL ALVEOLAR ABSCESS 05/30/2011 SALGUERO DO, PHILIPPE K 522.5 PERIAPICAL ALVEOLAR ABSCESS 05/30/2011 ASHELY AS400 DEVELOPER, BOY J 522.5 PERIAPICAL ALVEOLAR ABSCESS 05/30/2011 WHITE DDS, DEEDEE J 522.5 PERIAPICAL ALVEOLAR ABSCESS 05/30/2011 WHITE DDS, DEEDEE J 522.5 PERIAPICAL ALVEOLAR ABSCESS 05/30/2011 SALGUERO DO, PHILIPPE K 522.5 PERIAPICAL ALVEOLAR ABSCESS 05/30/2011 ASHELY AS400 DEVELOPER, BOY J 522.5 PERIAPICAL ALVEOLAR ABSCESS 05/30/2011 ASHELY AS400 DEVELOPER, BOY J 522.5 PERIAPICAL ALVEOLAR ABSCESS 05/30/2011 ASHELY AS400 DEVELOPER, BOY J 522.5 PERIAPICAL ALVEOLAR ABSCESS 05/30/2011 ASHELY AS400 DEVELOPER, BOY J 522.5 PERIAPICAL ALVEOLAR ABSCESS 05/30/2011 SALGUERO DO, PHILIPPE K 522.5 PERIAPICAL ALVEOLAR ABSCESS 05/30/2011 SALGUERO DO, PHILIPPE K 522.5 PERIAPICAL ALVEOLAR ABSCESS 05/30/2011 ASHELY AS400 DEVELOPER, BOY J 522.5 PERIAPICAL ALVEOLAR ABSCESS 05/30/2011 ASHELY AS400 DEVELOPER, BOY J 522.5 PERIAPICAL ALVEOLAR ABSCESS 05/30/2011 ASHELY AS400 DEVELOPER, BOY J 522.5 PERIAPICAL ALVEOLAR ABSCESS 05/30/2011 SALGUERO DO, PHILIPPE K 522.5 PERIAPICAL ALVEOLAR ABSCESS 05/30/2011 ASHELY AS400 DEVELOPER, BOY J 522.5 PERIAPICAL ALVEOLAR ABSCESS 05/30/2011 [...] SALGUERO DO, PHILIPPE K 278.02 Overweight 06/29/2011 SALGUEOR DO, PHILIPPE K 584.9 Acute Renal Failure [...] V65.42 Patient Education - Alcohol 06/29/2011 ASHELY AS400 DEVELOPER, BOY J 278.02 Overweight 06/29/2011 ASHELY SPANGLERNBECKYBOY J 584.9 Acute Renal Failure 06/29/2011 ASHELY AS400 DEVELOPER, OBY J 780.8 Excessive Sweating 06/29/2011 ASHELY AS400 DEVELOPERBECKYBOY J 786.05 Shortness Of Breath 06/29/2011 ASHELY AS400 DEVELOPER BOY J V65.42 Patient Education - Alcohol [...] V65.42 Patient Education - Alcohol 06/29/2011 ASHELY AS400 DEVELOPER, BOY J 278.02 Overweight 06/29/2011 ASHELY AS400 DEVELOPER, BOY J 584.9 Acute Renal Failure 06/29/2011 ASHELY AS400 DEVELOPER, BOY J 780.8 Excessive Sweating 06/29/2011 ASHELY AS400 DEVELOPERJUAREZA J 786.05 Shortness Of Breath 06/29/2011 ASHELY AS400 DEVELOPER, BOY J V65.42 Patient Education - Alcohol 06/29/2011 [facility], EDEDEE J 278.02 Overweight 06/29/2011 WHITE DDS, DEEDEE [...] V65.42 Patient Education - Alcohol 06/29/2011 ASHELY AS400 DEVELOPER BOY J 278.02 Overweight 06/29/2011 ASHELY AS400 DEVELOPERBECKYBOY J 584.9 Acute Renal Failure 06/29/2011 ASHELY AS400 DEVELOPERBECKYBOY J 780.8 Excessive Sweating 06/29/2011 ASHELY AS400 DEVELOPERJUAREZA J 786.05 Shortness Of Breath 06/29/2011 ASHELY [...] PHILIPPE K 584.9 Acute Renal Failure 06/29/2011 SAGLUERO DO, PHILIPPE K 780.8 Excessive Sweating 06/29/2011 [...] APRN V65.42 Patient Education - Alcohol 06/29/2011 [facility], JACKIE R 278.02 Overweight 06/29/2011 [facility], JACKIE Eastman 584.9 Acute Renal Failure 06/29/2011 [facility], JACKIE R 780.8 Excessive Sweating 06/29/2011 [facility], JACKIE R 786.05 Shortness Of Breath 06/29/2011 [facility], JACKIE R V65.42 Patient Education - Alcohol [...] PHILIPPE K 564.00 UNSPECIFIED CONSTIPATION 07/31/2011 ASHELY AS400 DEVELOPER, BOY J 564.00 UNSPECIFIED CONSTIPATION 07/31/2011 WHITE [...] SPANGLERN, BOY J 564.00 UNSPECIFIED CONSTIPATION 07/31/2011 [facility], JACKIE R 564.00 UNSPECIFIED CONSTIPATION 07/31/2011 SALGUERO [...] 616.10 Vaginitis And Vulvovaginitis Unspecified 08/20/2011 ASHELY AS400 DEVELOPER, BOY J 724.2 LUMBAGO 08/20/2011 ASHELY SPANGLERN [...] K 616.10 Vaginitis And Vulvovaginitis Unspecified 08/20/2011 SAGLUERO DO, PHILIPPE K 724.2 LUMBAGO 08/20/2011 NOEMY OLVERA, PHILIPPE K 783.1 ABNORMAL WEIGHT GAIN 08/20/2011 ASHELY AS400 DEVELOPER, BOY J 616.10 Vaginitis And Vulvovaginitis Unspecified 08/20/2011 ASHELY AS400 DEVELOPER, BOY J 724.2 LUMBAGO 08/20/2011 ASHELY AS400 DEVELOPER, BOY J 783.1 ABNORMAL WEIGHT GAIN 08/20/2011 ASHELY AS400 DEVELOPER, BOY J 616.10 Vaginitis And Vulvovaginitis Unspecified 08/20/2011 ASHELY AS400 DEVELOPER, BOY J 724.2 LUMBAGO 08/20/2011 ASHELY AS400 DEVELOPER, BOY J 783.1 ABNORMAL WEIGHT GAIN 08/20/2011 ASHELY AS400 DEVELOPER, BOY J 616.10 Vaginitis And Vulvovaginitis Unspecified 08/20/2011 ASHELY VASQUES, BOY J 724.2 LUMBAGO 08/20/2011 ASHELY AS400 DEVELOPER, BOY J 783.1 ABNORMAL WEIGHT GAIN 08/20/2011 ASHELY AS400 DEVELOPER, BOY J 616.10 Vaginitis And Vulvovaginitis Unspecified [...] K 783.1 ABNORMAL WEIGHT GAIN 08/20/2011 ASHELY AS400 DEVELOPER, BOY J 616.10 Vaginitis And Vulvovaginitis Unspecified 08/20/2011 ASHELY VASQUES BOY J 724.2 LUMBAGO 08/20/2011 BECKY LUND APRNINDA J 783.1 ABNORMAL WEIGHT GAIN 08/20/2011 BECKY LUND APRNINDA J 616.10 Vaginitis And Vulvovaginitis Unspecified 08/20/2011 ASHELY AS400 DEVELOPER, BOY J 724.2 LUMBAGO 08/20/2011 ASHELY AS400 DEVELOPER, BOY J 783.1 ABNORMAL WEIGHT GAIN 08/20/2011 [...] BOY J 783.1 ABNORMAL WEIGHT GAIN 08/20/2011 [facility], JACKIE R 616.10 Vaginitis And Vulvovaginitis Unspecified 08/20/2011 [facility], JACKIE R 724.2 LUMBAGO 08/20/2011 [facility], JACKIE R 783.1 ABNORMAL WEIGHT GAIN 08/20/2011 [...] 616.10 Vaginitis And Vulvovaginitis Unspecified 08/20/2011 MOY AS400 DEVELOPER, CHRIS A 724.2 LUMBAGO 08/20/2011 MOY SPANGLERN, CHRIS A 783.1 ABNORMAL WEIGHT GAIN 08/20/2011 TANISHA SALGUERO DOA K 616.10 Vaginitis And Vulvovaginitis Unspecified 08/20/2011 SALGUERO DO PHILIPPE K 724.2 LUMBAGO 08/20/2011 TANISHA SALGUERO DOA K 783.1 ABNORMAL WEIGHT GAIN 08/20/2011 ASHELY AS400 DEVELOPER, BOY J 616.10 Vaginitis And Vulvovaginitis Unspecified 08/20/2011 ASHELY AS400 DEVELOPER, BOY J 724.2 LUMBAGO 08/20/2011 ASHELY AS400 DEVELOPER, BOY J 783.1 ABNORMAL WEIGHT GAIN 08/20/2011 [...] LUND APRNA J 782.3 EDEMA 10/09/2011 ASHELY AS400 DEVELOPERJUAREZA J 782.62 Flushing 10/09/2011 SALGUERO DO, PHILIPPE [...] ASHELY SPANGLERNBECKYBOY J 782.3 EDEMA 10/09/2011 ASHELY AS400 DEVELOPER BOY J 782.62 Flushing 10/09/2011 WHITE DDS, [...] J 729.5 Pain In Limb 10/09/2011 ASHELY AS400 DEVELOPER, BOY J 782.3 EDEMA 10/09/2011 ASHELY AS400 DEVELOPER BOY J 782.62 Flushing 10/09/2011 ASHELY AS400 DEVELOPER BOY J 719.45 Pain In Joint Involving [...] Involving Pelvic Region And Thigh 10/09/2011 MOY AS400 DEVELOPER, CHRIS A 729.5 Pain In Limb 10/09/2011 MOY AS400 DEVELOPER, CHRIS A 782.3 EDEMA 10/09/2011 MYO AS400 DEVELOPER, CHRIS A 782.62 Flushing 10/09/2011 SALGUERO DO, PHILIPPE K 719.45 Pain In Joint Involving Pelvic Region And Thigh 10/09/2011 SALGUERO DO, PHILIPPE K 729.5 Pain In Limb 10/09/2011 SALGUERO DO, PHILIPPE K 782.3 EDEMA 10/09/2011 SALGUERO DO, PHILIPPE K 782.62 Flushing 10/09/2011 BOY LUND APRN J [...] DDS, DEEDEE J 704.8 Folliculitis 01/15/2012 ASHELY AS400 DEVELOPER, BOY J 704.8 Folliculitis 01/15/2012 SALGUERO DO, PHILIPPE K 704.8 Folliculitis 01/15/2012 SALGUERO DO, PHILIPPE K 704.8 Folliculitis 01/15/2012 ASHELY AS400 DEVELOPER, BOY J 704.8 Folliculitis 01/15/2012 WHITE DDS, DEEDEE J 704.8 Folliculitis 01/15/2012 WHITE DDS, DEEDEE J 704.8 Folliculitis 01/15/2012 SALGUERO DO, PHILIPPE K 704.8 Folliculitis 01/15/2012 ASHELY AS400 DEVELOPER, BOY J 704.8 Folliculitis 01/15/2012 ASHELY AS400 DEVELOPER, BOY J 704.8 Folliculitis 01/15/2012 ASHELY AS400 DEVELOPER, BOY J 704.8 Folliculitis 01/15/2012 ASHELY AS400 DEVELOPER, BOY J 704.8 Folliculitis 01/15/2012 SALGUERO DO, PHILIPPE K 704.8 Folliculitis 01/15/2012 SALGUERO DO, HPILIPPE K 704.8 Folliculitis 01/15/2012 ASHELY AS400 DEVELOPER, BOY J 704.8 Folliculitis 01/15/2012 ASHELY AS400 DEVELOPER, BOY J 704.8 Folliculitis 01/15/2012 ASHELY AS400 DEVELOPER, BOY J 704.8 Folliculitis 01/15/2012 SALGUERO DO, PHILIPPE K 704.8 Folliculitis 01/15/2012 ASHELY AS400 DEVELOPER, BOY J 704.8 Folliculitis 01/15/2012 IVET JACKIE [...] DEPRESSIVE DISORDER NOT ELSEWHERE CLASSIFIED 02/04/2012 BOY ULND APRN 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 02/04/2012 BOY [...] DEPRESSIVE DISORDER NOT ELSEWHERE CLASSIFIED 02/04/2012 IVET MAYBARNO JACKIE R 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 02/04/2012 [...] DO, PHILIPPE K 496 COPD 02/24/2012 ASHELY AS400 DEVELOPER, BOY J 496 COPD 02/24/2012 WHITE DDS, DEEDEE J 496 COPD 02/24/2012 WHITE DDS, DEEDEE J 496 COPD 02/24/2012 SALGUERO DO, PHILIPPE K 496 COPD 02/24/2012 ASHELY AS400 DEVELOPER, BOY J 496 COPD 02/24/2012 ASHELY AS400 DEVELOPER, BOY J 496 COPD 02/24/2012 ASHELY AS400 DEVELOPER, BOY J 496 COPD 02/24/2012 ASHELY AS400 DEVELOPER, BOY J 496 COPD 02/24/2012 SALGUERO DO, PHILIPPE K 496 COPD 02/24/2012 SALGUERO DO, PHILIPPE K 496 COPD 02/24/2012 ASHELY AS400 DEVELOPER, BOY J 496 COPD 02/24/2012 ASHELY AS400 DEVELOPER, BOY J 496 COPD 02/24/2012 ASHELY AS400 DEVELOPER, BOY J 496 COPD 02/24/2012 SALGUERO DO, PHILIPPE K 496 COPD 02/24/2012 ASHELY AS400 DEVELOPER, BOY J 496 COPD 02/24/2012 [facility], JACKIE R 496 COPD 02/24/2012 SALGUERO DO, PHILIPPE K 496 COPD 02/24/2012 SALGUERO DO, PHILIPPE K 496 COPD 02/24/2012 CHRIS WINTER APRN 496 COPD 02/24/2012 SALGUERO DO, PHILIPPE K 496 COPD 02/24/2012 ASHELY AS400 DEVELOPER, BOY J 496 COPD 02/24/2012 SALGUERO DO, [...] DEEDEE J 799.81 DECREASED LIBIDO 03/08/2012 ASHELY AS400 DEVELOPER, BOY J 799.81 DECREASED LIBIDO 03/08/2012 SALGUERO DO, PHILIPPE K 799.81 DECREASED LIBIDO 03/08/2012 SALGUERO DO, PHILIPPE K 799.81 DECREASED LIBIDO 03/08/2012 ASHELY AS400 DEVELOPER, BOY J 799.81 DECREASED LIBIDO 03/08/2012 WHITE DDS, DEEDEE J 799.81 DECREASED LIBIDO 03/08/2012 WHITE DDS, DEEDEE J 799.81 DECREASED LIBIDO 03/08/2012 SALGUERO DO, PHILIPPE K 799.81 DECREASED LIBIDO 03/08/2012 ASHELY AS400 DEVELOPER, BOY J 799.81 DECREASED LIBIDO 03/08/2012 ASHELY AS400 DEVELOPER, BOY J 799.81 DECREASED LIBIDO 03/08/2012 ASHELY AS400 DEVELOPER, BOY J 799.81 DECREASED LIBIDO 03/08/2012 ASHELY AS400 DEVELOPER, BOY J 799.81 DECREASED LIBIDO 03/08/2012 SALGUERO DO, PHILIPPE K 799.81 DECREASED LIBIDO 03/08/2012 SALGUERO DO, PHILIPPE K 799.81 DECREASED LIBIDO 03/08/2012 ASHELY AS400 DEVELOPER, BOY J 799.81 DECREASED LIBIDO 03/08/2012 ASHELY AS400 DEVELOPER, BOY J 799.81 DECREASED LIBIDO 03/08/2012 ASHELY AS400 DEVELOPER, BYO J 799.81 DECREASED LIBIDO 03/08/2012 SALGUERO DO, PHILIPPE K 799.81 DECREASED LIBIDO 03/08/2012 ASHELY AS400 DEVELOPER, BOY J 799.81 DECREASED LIBIDO 03/08/2012 [facility], JACKIE Eastman 799.81 DECREASED LIBIDO 03/08/2012 SALGUERO DO, PHILIPPE K 799.81 DECREASED LIBIDO 03/08/2012 SALGUERO DO, PHILIPPE K 799.81 DECREASED LIBIDO 03/08/2012 CHRIS WINTER APRN 799.81 DECREASED LIBIDO 03/08/2012 SALGUERO DO, PHILIPPE K 799.81 DECREASED LIBIDO 03/08/2012 ASHELY AS400 DEVELOPER, BOY J 799.81 DECREASED LIBIDO 03/08/2012 SALGUERO DO, PHILIPPE K 799.81 DECREASED LIBIDO 04/29/2012 782.0 DISTURBANCE OF SKIN SENSATION 04/29/2012 788.30 URINARY INCONTINENCE UNSPECIFIED 04/29/2012 SALGUERO DO, PHILIPPE K 782.0 DISTURBANCE OF SKIN SENSATION 04/29/2012 SALGUERO DO, PHIILPPE K 788.30 URINARY INCONTINENCE UNSPECIFIED 04/29/2012 SALGUERO [...] J 788.30 URINARY INCONTINENCE UNSPECIFIED 04/29/2012 ASHELY AS400 DEVELOPER, BOY J 782.0 DISTURBANCE OF SKIN SENSATION 04/29/2012 ASHELY AS400 DEVELOPER, BOY J 788.30 URINARY INCONTINENCE UNSPECIFIED 04/29/2012 SALGUERO DO, PHILIPPE K 782.0 DISTURBANCE OF SKIN SENSATION 04/29/2012 SALGUERO DO, PHILIPPE K 788.30 URINARY INCONTINENCE UNSPECIFIED 04/29/2012 SALGUERO DO, PHILIPPE K 782.0 DISTURBANCE OF SKIN SENSATION 04/29/2012 SALGUERO DO, PHILIPPE K 788.30 URINARY INCONTINENCE UNSPECIFIED 04/29/2012 ASHELY AS400 DEVELOPER, BOY J 782.0 DISTURBANCE OF SKIN SENSATION [...] K 788.30 URINARY INCONTINENCE UNSPECIFIED 04/29/2012 ASHELY AS400 DEVELOPER, BOY J 782.0 DISTURBANCE OF SKIN SENSATION 04/29/2012 ASHELY AS400 DEVELOPER, BOY J 788.30 URINARY INCONTINENCE UNSPECIFIED 04/29/2012 ASHELY AS400 DEVELOPER, BOY J 782.0 DISTURBANCE OF SKIN SENSATION 04/29/2012 ASHELY AS400 DEVELOPER, BOY J 788.30 URINARY INCONTINENCE UNSPECIFIED 04/29/2012 ASHELY VASQUES, BOY J 782.0 DISTURBANCE OF SKIN SENSATION 04/29/2012 ASHELY AS400 DEVELOPER, BOY J 788.30 URINARY INCONTINENCE UNSPECIFIED 04/29/2012 ASHELY AS400 DEVELOPER, BOY J 782.0 DISTURBANCE OF SKIN SENSATION 04/29/2012 ASHELY AS400 DEVELOPER, BOY J 788.30 URINARY INCONTINENCE UNSPECIFIED 04/29/2012 [...] BOY J 788.30 URINARY INCONTINENCE UNSPECIFIED 04/29/2012 [facility], JACKIE R 782.0 DISTURBANCE OF SKIN SENSATION 04/29/2012 [facility], JACKIE R 788.30 URINARY INCONTINENCE UNSPECIFIED 04/29/2012 [...] NARAYANAN PA-C 354.0 CARPAL TUNNEL SYNDROME 07/04/2012 MEAVE NARAYANAN PA-C 368.8 BLURRY VISION 07/04/2012 MAEVE [...] BOY J 368.8 BLURRY VISION 07/04/2012 ASHELY AS400 DEVELOPER, BOY J 719.40 ARTHRALGIA 07/04/2012 WHITE DDS, DEEDEE J 354.0 CARPAL TUNNEL SYNDROME 07/04/2012 WHITE DDS, DEEDEE J 368.8 BLURRY VISION 07/04/2012 WHITE DDS, DEEDEE J 719.40 ARTHRALGIA 07/04/2012 WHITE DDS, DEEDEE J 354.0 CARPAL TUNNEL SYNDROME 07/04/2012 WHITE DDS, DEEDEE J 368.8 BLURRY VISION 07/04/2012 WHITE DDS, DEEDEE J 719.40 ARTHRALGIA 07/04/2012 SALGUERO DO, PHILIPPE K 354.0 CARPAL TUNNEL SYNDROME 07/04/2012 SALUGERO DO, PHILIPPE K 368.8 BLURRY VISION 07/04/2012 [...] J 354.0 CARPAL TUNNEL SYNDROME 07/04/2012 ASHELY AS400 DEVELOPER, BOY J 368.8 BLURRY VISION 07/04/2012 ASHELY [...] BECKY LUND APRNINDA J 719.40 ARTHRALGIA 07/04/2012 [facility], JACKIE R 354.0 CARPAL TUNNEL SYNDROME 07/04/2012 [facility], JACKIE R 368.8 BLURRY VISION 07/04/2012 [facility], JACKIE R 719.40 ARTHRALGIA 07/04/2012 SALGUERO DO, PHILIPPE K 354.0 CARPAL TUNNEL SYNDROME 07/04/2012 SALGUERO DO, PHILIPPE K 368.8 BLURRY VISION 07/04/2012 SALGUERO DO, PHILIPPE K 719.40 ARTHRALGIA 07/04/2012 SALGUERO DO PHILIPPE K 354.0 CARPAL TUNNEL SYNDROME 07/04/2012 SALGUERO DO, PHILIPPE K 368.8 BLURRY VISION 07/04/2012 SALGUERO DO, PHILIPPE K 719.40 ARTHRALGIA 07/04/2012 CHRIS WINTER APRN 354.0 CARPAL TUNNEL SYNDROME 07/04/2012 MOY AS400 DEVELOPER, CHRIS A 368.8 BLURRY VISION 07/04/2012 MOY AS400 DEVELOPER, CHRIS A 719.40 ARTHRALGIA 07/04/2012 SALGUERO DO, PHILIPPE K 354.0 CARPAL TUNNEL SYNDROME 07/04/2012 SALGUERO DO, PHILIPPE K 368.8 BLURRY VISION 07/04/2012 SALGUERO DO, PHILIPPE K 719.40 ARTHRALGIA 07/04/2012 ASHELY AS400 DEVELOPER, BOY J 354.0 CARPAL TUNNEL SYNDROME 07/04/2012 ASHELY AS400 DEVELOPER, BOY J 368.8 BLURRY VISION 07/04/2012 ASHELY AS400 DEVELOPER, BOY J 719.40 ARTHRALGIA 07/04/2012 SALGUERO DO, [...] AND ABSCESS OF UNSPECIFIED SITES 09/07/2012 ASHELY AS400 DEVELOPER, BOY J 682.9 CELLULITIS AND ABSCESS OF UNSPECIFIED SITES 09/07/2012 SALGUERO DO, PHILIPPE K 682.9 CELLULITIS AND ABSCESS OF UNSPECIFIED SITES 09/07/2012 SALGUERO DO, PHILIPPE K 682.9 CELLULITIS AND ABSCESS OF UNSPECIFIED SITES 09/07/2012 ASHELY AS400 DEVELOPER, BOY J 682.9 CELLULITIS AND ABSCESS OF UNSPECIFIED SITES 09/07/2012 WHITE DDS, DEEDEE J 682.9 CELLULITIS AND ABSCESS OF UNSPECIFIED SITES 09/07/2012 WHITE DDS, DEEDEE J 682.9 CELLULITIS AND ABSCESS OF UNSPECIFIED SITES 09/07/2012 SALGUERO DO, PHILIPPE K 682.9 CELLULITIS AND ABSCESS OF UNSPECIFIED SITES 09/07/2012 ASHELY AS400 DEVELOPER, BOY J 682.9 CELLULITIS AND ABSCESS OF UNSPECIFIED SITES 09/07/2012 ASHELY AS400 DEVELOPER, BOY J 682.9 CELLULITIS AND ABSCESS OF UNSPECIFIED SITES 09/07/2012 ASHELY AS400 DEVELOPER, BOY J 682.9 CELLULITIS AND ABSCESS OF UNSPECIFIED SITES 09/07/2012 ASHELY AS400 DEVELOPER, BOY J 682.9 CELLULITIS AND ABSCESS OF UNSPECIFIED SITES 09/07/2012 SALGUERO DO, PHILIPPE K 682.9 CELLULITIS AND ABSCESS OF UNSPECIFIED SITES 09/07/2012 SALGUERO DO, PHILIPPE K 682.9 CELLULITIS AND ABSCESS OF UNSPECIFIED SITES 09/07/2012 ASHELY AS400 DEVELOPER, BOY J 682.9 CELLULITIS AND ABSCESS OF UNSPECIFIED SITES 09/07/2012 ASHELY AS400 DEVELOPER, BOY J 682.9 CELLULITIS AND ABSCESS OF UNSPECIFIED SITES 09/07/2012 ASHELY AS400 DEVELOPER, BOY J 682.9 CELLULITIS AND ABSCESS OF UNSPECIFIED SITES 09/07/2012 SALGUERO DO, PHILIPPE K 682.9 CELLULITIS AND ABSCESS OF UNSPECIFIED SITES 09/07/2012 BOY LUND APRN 682.9 CELLULITIS AND ABSCESS OF UNSPECIFIED SITES 09/07/2012 IVET [facility], JACKIE Eastman 682.9 CELLULITIS AND ABSCESS OF [...] CONDITIONS AND FIBROSIS OF SKIN 10/06/2012 ASHELY AS400 DEVELOPER, BOY J 692.71 SUNBURN 10/06/2012 ASHELY AS400 DEVELOPER, BOY J 709.2 SCAR CONDITIONS AND FIBROSIS OF SKIN 10/06/2012 ASHELY AS400 DEVELOPER, BOY J 692.71 SUNBURN 10/06/2012 ASHELY AS400 DEVELOPER, BOY J 709.2 SCAR CONDITIONS AND FIBROSIS OF SKIN 10/06/2012 ASHELY VASQUES, BOY J 692.71 SUNBURN 10/06/2012 ASHELY VASQUES, BOY J 709.2 SCAR CONDITIONS AND FIBROSIS OF SKIN 10/06/2012 ASHELY AS400 DEVELOPER, BOY J 692.71 SUNBURN 10/06/2012 ASHELY AS400 DEVELOPER, BOY J 709.2 SCAR CONDITIONS AND FIBROSIS OF SKIN 10/06/2012 PHILIPPE SALGUERO DO K 692.71 SUNBURN 10/06/2012 PHILIPPE SALGUERO DO K 709.2 SCAR CONDITIONS AND FIBROSIS OF SKIN 10/06/2012 PHILIPPE SALGUERO DO K 692.71 SUNBURN 10/06/2012 PHILIPPE SALGUERO DO K 709.2 SCAR CONDITIONS AND FIBROSIS OF SKIN 10/06/2012 ASHELY AS400 DEVELOPER, BOY J 692.71 SUNBURN 10/06/2012 ASHELY AS400 DEVELOPER, BOY J 709.2 SCAR CONDITIONS AND FIBROSIS OF SKIN 10/06/2012 ASHELY AS400 DEVELOPER, BOY J 692.71 SUNBURN 10/06/2012 ASHELY AS400 DEVELOPER, BOY J 709.2 SCAR CONDITIONS AND FIBROSIS OF SKIN 10/06/2012 ASHELY AS400 DEVELOPER, BOY J 692.71 SUNBURN 10/06/2012 ASHELY VASQUES, BOY J 709.2 SCAR CONDITIONS AND FIBROSIS OF SKIN 10/06/2012 TANISHA SALGUERO DOA K 692.71 SUNBURN 10/06/2012 TANISHA SALGUERO DOA K 709.2 SCAR CONDITIONS AND FIBROSIS OF SKIN 10/06/2012 ASHELY VASQUES, BOY J 692.71 SUNBURN 10/06/2012 ASHELY VASQUES, BOY J 709.2 SCAR CONDITIONS AND FIBROSIS OF SKIN 10/06/2012 [facility], JACKIE R 692.71 SUNBURN 10/06/2012 [facility], JACKIE R 709.2 SCAR CONDITIONS AND FIBROSIS [...] FROM FEMALE GENITAL TRACT 12/08/2012 SALGUERO DO PIHLIPPE K 626.9 UNSPECIFIED DISORDERS OF MENSTRUATION AND [...] BLEEDING FROM FEMALE GENITAL TRACT 12/08/2012 IVET [facility], JACKIE R 626.9 UNSPECIFIED DISORDERS OF MENSTRUATION [...] DEEDEE J V04.81 FLU SHOT 01/11/2013 ASHELY AS400 DEVELOPER, BOY J V04.81 FLU SHOT 01/11/2013 SALGUERO DO, PHILIPPE K V04.81 FLU SHOT 01/11/2013 SALGUERO DO, PHILIPPE K V04.81 FLU SHOT 01/11/2013 ASHELY AS400 DEVELOPER, BOY J V04.81 FLU SHOT 01/11/2013 WHITE DDS, DEEDEE J V04.81 FLU SHOT 01/11/2013 WHITE DDS, DEEDEE J V04.81 FLU SHOT 01/11/2013 SALGUERO DO, PHILIPPE K V04.81 FLU SHOT 01/11/2013 ASHELY AS400 DEVELOPER, BOY J V04.81 FLU SHOT 01/11/2013 ASHELY AS400 DEVELOPER, BOY J V04.81 FLU SHOT 01/11/2013 ASHELY AS400 DEVELOPER, BOY J V04.81 FLU SHOT 01/11/2013 ASHELY AS400 DEVELOPER, BOY J V04.81 FLU SHOT 01/11/2013 SALGUERO DO, PHILIPPE K V04.81 FLU SHOT 01/11/2013 SALGUERO DO, PHILIPPE K V04.81 FLU SHOT 01/11/2013 ASHELY AS400 DEVELOPER, BOY J V04.81 FLU SHOT 01/11/2013 ASHELY AS400 DEVELOPER, BOY J V04.81 FLU SHOT 01/11/2013 ASHELY AS400 DEVELOPER, BOY J V04.81 FLU SHOT 01/11/2013 SALGUERO DO, PHILIPPE K V04.81 FLU SHOT 01/11/2013 ASHELY AS400 DEVELOPER, BOY J V04.81 FLU SHOT 01/11/2013 IVET [facility], JACKIE R V04.81 FLU SHOT 01/11/2013 SALGUERO DO, PHILIPPE K V04.81 FLU SHOT 01/11/2013 SALGUERO DO, PHILIPPE K V04.81 FLU SHOT 01/11/2013 MYO APRN, CHRIS A V04.81 FLU SHOT 01/11/2013 SALGUERO DO, PHILIPPE K V04.81 FLU SHOT 01/11/2013 ASHELY AS400 DEVELOPER, BOY J V04.81 FLU SHOT 01/11/2013 SALGUERO [...] DO, PHILIPPE K 799.02 HYPOXEMIA 01/27/2013 ASHELY AS400 DEVELOPER, BOY J 799.02 HYPOXEMIA 01/27/2013 ASHELY AS400 DEVELOPER, BOY J 799.02 HYPOXEMIA 01/27/2013 ASHELY AS400 DEVELOPER, BOY J 799.02 HYPOXEMIA 01/27/2013 ASHELY AS400 DEVELOPER, BOY J 799.02 HYPOXEMIA 01/27/2013 SALGUERO DO, PHILIPPE K 799.02 HYPOXEMIA 01/27/2013 SALGUERO DO, PHILIPPE K 799.02 HYPOXEMIA 01/27/2013 ASHELY AS400 DEVELOPER, BOY J 799.02 HYPOXEMIA 01/27/2013 ASHELY AS400 DEVELOPER, BOY J 799.02 HYPOXEMIA 01/27/2013 ASHELY AS400 DEVELOPER, BOY J 799.02 HYPOXEMIA 01/27/2013 SALGUERO DO, PHILIPPE K 799.02 HYPOXEMIA 01/27/2013 ASHELY AS400 DEVELOPER, BOY J 799.02 HYPOXEMIA 01/27/2013 [facility], JACKIE R 799.02 HYPOXEMIA 01/27/2013 SALGUERO DO, PHILIPPE K 799.02 HYPOXEMIA 01/27/2013 SALGUERO DO, PHILIPPE K 799.02 HYPOXEMIA 01/27/2013 CHRIS WINTER APRN 799.02 HYPOXEMIA 01/27/2013 SALGUERO DO, PHILIPPE K 799.02 HYPOXEMIA 01/27/2013 ASHELY AS400 DEVELOPER, BOY J 799.02 HYPOXEMIA 01/27/2013 SALGUERO DO, [...] DEEDEE Hawthorne 780.52 INSOMNIA UNSPECIFIED 04/07/2013 ASHELY AS400 DEVELOPER, BOY J 780.52 INSOMNIA UNSPECIFIED 04/07/2013 SALGUERO DO, PHILIPPE K 780.52 INSOMNIA UNSPECIFIED 04/07/2013 SALGUERO DO, PHILIPPE K 780.52 INSOMNIA UNSPECIFIED 04/07/2013 ASHELY AS400 DEVELOPER, BOY J 780.52 INSOMNIA UNSPECIFIED 04/07/2013 WHITE DDS, DEEDEE J 780.52 INSOMNIA UNSPECIFIED 04/07/2013 WHITE DDS, DEEDEE J 780.52 INSOMNIA UNSPECIFIED 04/07/2013 SALGUERO DO, PHILIPPE K 780.52 INSOMNIA UNSPECIFIED 04/07/2013 ASHELY AS400 DEVELOPER, BOY J 780.52 INSOMNIA UNSPECIFIED 04/07/2013 ASHELY AS400 DEVELOPER, BOY J 780.52 INSOMNIA UNSPECIFIED 04/07/2013 ASHELY AS400 DEVELOPER, BOY J 780.52 INSOMNIA UNSPECIFIED 04/07/2013 ASHELY AS400 DEVELOPER, BOY J 780.52 INSOMNIA UNSPECIFIED 04/07/2013 SALGUERO DO, PHILIPPE K 780.52 INSOMNIA UNSPECIFIED 04/07/2013 SALGUERO DO, PHILIPEP K 780.52 INSOMNIA UNSPECIFIED 04/07/2013 ASHELY AS400 DEVELOPER, BOY J 780.52 INSOMNIA UNSPECIFIED 04/07/2013 ASHELY AS400 DEVELOPER, BOY J 780.52 INSOMNIA UNSPECIFIED 04/07/2013 ASHELY AS400 DEVELOPER, BOY J 780.52 INSOMNIA UNSPECIFIED 04/07/2013 SALGUERO DO, PHILIPPE K 780.52 INSOMNIA UNSPECIFIED 04/07/2013 ASHELY AS400 DEVELOPER, BOY J 780.52 INSOMNIA UNSPECIFIED 04/07/2013 [facility], JACKIE R 780.52 INSOMNIA UNSPECIFIED 04/07/2013 SALGUERO DO, PHILIPPE K 780.52 INSOMNIA UNSPECIFIED 04/07/2013 SALGUERO DO, PHILIPPE K 780.52 INSOMNIA UNSPECIFIED 04/07/2013 MOY VASQUES CHRIS A 780.52 INSOMNIA UNSPECIFIED 04/07/2013 SALGUERO DO, PHILIPPE K 780.52 INSOMNIA UNSPECIFIED 04/07/2013 ASHELY AS400 DEVELOPER, BOY J 780.52 INSOMNIA UNSPECIFIED 04/07/2013 SALGUERO [...] READING WITHOUT DIAGNOSIS OF HYPERTENSION 08/07/2013 ASHELY AS400 DEVELOPER, BOY J 276.8 HYPOPOTASSEMIA 08/07/2013 ASHELY CAPRICE, [...] VASQUES BOY J 276.8 HYPOPOTASSEMIA 08/07/2013 ASHELY VAQSUES BOY J 796.2 ELEVATED BLOOD PRESSURE READING [...] PRESSURE READING WITHOUT DIAGNOSIS OF HYPERTENSION 08/07/2013 [facility], JACKIE R 276.8 HYPOPOTASSEMIA 08/07/2013 [facility], JACKIE R 796.2 ELEVATED BLOOD PRESSURE READING WITHOUT DIAGNOSIS OF HYPERTENSION 08/07/2013 SALGUERO DO, PHILIPPE K 276.8 HYPOPOTASSEMIA 08/07/2013 SALGUERO DO, PHILIPPE K 796.2 ELEVATED BLOOD PRESSURE READING WITHOUT DIAGNOSIS OF HYPERTENSION 08/07/2013 SALGUERO DO, PHILIPPE K 276.8 HYPOPOTASSEMIA 08/07/2013 SALGUERO DO, PHILIPPE K 796.2 ELEVATED BLOOD PRESSURE READING WITHOUT DIAGNOSIS OF HYPERTENSION 08/07/2013 MOY AS400 DEVELOPER, CHRIS A 276.8 HYPOPOTASSEMIA 08/07/2013 MOY VASQUES, [...] 295.70 SCHIZOAFFECTIVE DISORDER UNSPECIFIED STATE 09/07/2013 ASHELY AS400 DEVELOPERBECKY CurielBOY J 309.81 AN PTSD 09/07/2013 ASHELY AS400 DEVELOPER, BOY J 295.70 SCHIZOAFFECTIVE DISORDER UNSPECIFIED STATE 09/07/2013 ASHELY AS400 DEVELOPER, BOY J 309.81 AN PTSD 09/07/2013 ASHELY AS400 DEVELOPER, BOY J 295.70 SCHIZOAFFECTIVE DISORDER UNSPECIFIED STATE [...] VASQUES BOY J 309.81 AN PTSD 09/07/2013 [facility], JACKIE R 295.70 SCHIZOAFFECTIVE DISORDER UNSPECIFIED STATE 09/07/2013 [facility], JACKIE R 309.81 AN PTSD 09/07/2013 SALGUERO [...] 295.70 SCHIZOAFFECTIVE DISORDER UNSPECIFIED STATE 09/07/2013 ASHELY AS400 DEVELOPERJUAREZA J 309.81 AN PTSD 09/07/2013 SALGUERO DO, [...] PHILIPPE K V25.9 CONTRACEPTION MANAGEMENT 09/15/2013 ASHELY AS400 DEVELOPER, BOY J 530.81 GERD 09/15/2013 ASHELY AS400 DEVELOPER, BOY J 788.30 URINARY INCONTINENCE UNSPECIFIED 09/15/2013 ASHELY AS400 DEVELOPERJUAREZA J V25.9 CONTRACEPTION MANAGEMENT 09/15/2013 ASHELY AS400 DEVELOPER, BOY J 530.81 GERD 09/15/2013 ASHELY AS400 DEVELOPER, BOY J 788.30 URINARY INCONTINENCE UNSPECIFIED 09/15/2013 ASHELY AS400 DEVELOPERJUAREZA J V25.9 CONTRACEPTION MANAGEMENT 09/15/2013 ASHELY AS400 DEVELOPER, BOY J 530.81 GERD 09/15/2013 ASHELY AS400 DEVELOPER, BOY J 788.30 URINARY INCONTINENCE UNSPECIFIED 09/15/2013 ASHELY AS400 DEVELOPER, BOY J V25.9 CONTRACEPTION MANAGEMENT 09/15/2013 ASHELY AS400 DEVELOPER, BOY J 530.81 GERD 09/15/2013 ASHELY AS400 DEVELOPER, BOY J 788.30 URINARY INCONTINENCE UNSPECIFIED 09/15/2013 ASHELY AS400 DEVELOPER, BOY J V25.9 CONTRACEPTION MANAGEMENT 09/15/2013 SALGUERO DO, PHILIPPE K 530.81 GERD 09/15/2013 SALGUERO DO, PHILIPPE K 788.30 URINARY INCONTINENCE UNSPECIFIED 09/15/2013 SALGUERO DO, PHILIPPE K V25.9 CONTRACEPTION MANAGEMENT 09/15/2013 SALGUERO DO, PHILIPPE K 530.81 GERD 09/15/2013 SALGUERO DO, PHILIPPE K 788.30 URINARY INCONTINENCE UNSPECIFIED 09/15/2013 SALGUERO DO, PHILIPPE K V25.9 CONTRACEPTION MANAGEMENT 09/15/2013 ASHELY AS400 DEVELOPER, BOY J 530.81 GERD 09/15/2013 ASHELY AS400 DEVELOPER, BOY J 788.30 URINARY INCONTINENCE UNSPECIFIED 09/15/2013 ASHELY AS400 DEVELOPER BOY J V25.9 CONTRACEPTION MANAGEMENT 09/15/2013 ASHELY AS400 DEVELOPER, BOY J 530.81 GERD 09/15/2013 ASHELY AS400 DEVELOPER, BOY J 788.30 URINARY INCONTINENCE UNSPECIFIED 09/15/2013 ASHELY AS400 DEVELOPER BOY J V25.9 CONTRACEPTION MANAGEMENT 09/15/2013 ASHELY AS400 DEVELOPER, BOY J 530.81 GERD 09/15/2013 ASHELY AS400 DEVELOPER BOY J 788.30 URINARY INCONTINENCE UNSPECIFIED 09/15/2013 ASHELY AS400 DEVELOPERJUAREZ CurielA J V25.9 CONTRACEPTION MANAGEMENT 09/15/2013 SALGUERO DO, PHILIPPE K 530.81 GERD 09/15/2013 SALGUERO DO, PHILIPPE K 788.30 URINARY INCONTINENCE UNSPECIFIED 09/15/2013 SALGUERO DO, PHILIPPE K V25.9 CONTRACEPTION MANAGEMENT 09/15/2013 ASHELY AS400 DEVELOPERJUAREZA J 530.81 GERD 09/15/2013 ASHELY AS400 DEVELOPER, BOY J 788.30 URINARY INCONTINENCE UNSPECIFIED 09/15/2013 ASHELY AS400 DEVELOPERJUAREZA J V25.9 CONTRACEPTION MANAGEMENT 09/15/2013 [facility], JACKIE R 530.81 GERD 09/15/2013 [facility], JACKIE R 788.30 URINARY INCONTINENCE UNSPECIFIED 09/15/2013 [facility], JACKIE R V25.9 CONTRACEPTION MANAGEMENT 09/15/2013 SALGUERO DO, PHILIPPE K 530.81 GERD 09/15/2013 SALGUERO DO, PHILIPPE K 788.30 URINARY INCONTINENCE UNSPECIFIED 09/15/2013 SALGUERO DO, PHILIPPE K V25.9 CONTRACEPTION MANAGEMENT 09/15/2013 SALGUERO DO, PHILIPPE K 530.81 GERD 09/15/2013 SALGUERO DO, PHILIPPE K 788.30 URINARY INCONTINENCE UNSPECIFIED 09/15/2013 SALGUERO DO, PHILIPPE K V25.9 CONTRACEPTION MANAGEMENT 09/15/2013 MOY AS400 DEVELOPER, CHRIS A 530.81 GERD 09/15/2013 MOY AS400 DEVELOPER, CHRIS A 788.30 URINARY INCONTINENCE UNSPECIFIED 09/15/2013 MOY AS400 DEVELOPER, CHRIS A V25.9 CONTRACEPTION MANAGEMENT 09/15/2013 SALGUERO DO, PHILIPPE K 530.81 GERD 09/15/2013 SALGUERO DO PHILIPPE K 788.30 URINARY INCONTINENCE UNSPECIFIED 09/15/2013 SALGUERO DO PHILIPPE K V25.9 CONTRACEPTION MANAGEMENT 09/15/2013 ASHELY AS400 DEVELOPERJUAREZA J 530.81 GERD 09/15/2013 ASHELY AS400 DEVELOPERJUAREZA J 788.30 URINARY INCONTINENCE UNSPECIFIED 09/15/2013 ASHELY AS400 DEVELOPERBECKYBOY J V25.9 CONTRACEPTION MANAGEMENT 09/15/2013 SALGUERO DO, [...] LUND APRN 783.21 LOSS OF WEIGHT 10/16/2013 [facility], JACKIE R 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 10/16/2013 [facility], JACKIE R 459.89 OTHER SPECIFIED CIRCULATORY SYSTEM DISORDERS 10/16/2013 [facility], JACKIE R 727.49 OTHER GANGLION AND CYST OF SYNOVIUM TENDON AND BURSA 10/16/2013 [facility], JACKIE R 783.21 LOSS OF WEIGHT 10/16/2013 [...] APRNINDA J 401.1 HYPERTENSION, BENIGN ESSENTIAL 12/08/2013 [facility], JACKIE R 244.9 HYPOTHYROIDISM 12/08/2013 [facility], JACKIE R 401.1 HYPERTENSION, BENIGN ESSENTIAL 12/08/2013 SALGUERO DO, PHILIPPE K 244.9 HYPOTHYROIDISM 12/08/2013 SALGUERO DO, PHILIPPE K 401.1 HYPERTENSION, BENIGN ESSENTIAL 12/08/2013 SALGUERO DO, PHILIPPE K 244.9 HYPOTHYROIDISM 12/08/2013 SALGUERO DO, PHILIPPE K 401.1 HYPERTENSION, BENIGN ESSENTIAL 12/08/2013 MOY AS400 DEVELOPER, CHRIS A 244.9 HYPOTHYROIDISM 12/08/2013 MOY AS400 DEVELOPER, CHRIS A 401.1 HYPERTENSION, BENIGN ESSENTIAL 12/08/2013 [...] ASHELY VASQUES BOY J 782.1 RASH 01/08/2014 [facility], JACKIE R 719.46 PAIN IN JOINT INVOLVING LOWER LEG 01/08/2014 [facility], JACKIE R 782.1 RASH 01/08/2014 SALGUERO DO, [...] 02/04/2014 RONEL GRAVES DO Ot E920.8 03/30/2014 [facility], JACKIE R 780.4 DIZZINESS AND VERTIGO 03/30/2014 [facility], JACKIE R 780.79 OTHER MALAISE AND FATIGUE [...] 780.79 OTHER MALAISE AND FATIGUE 04/02/2014 [facility], JACKIE R 280.9 ANEMIA, IRON DEFICIENCY 04/02/2014 SALGUERO DO, PHILIPPE K 280.9 ANEMIA, IRON DEFICIENCY 04/02/2014 SALGUERO DO, PHILIPPE K 280.9 ANEMIA, IRON DEFICIENCY 04/02/2014 MOY AS400 DEVELOPER, CHRIS A 280.9 ANEMIA, IRON DEFICIENCY 04/02/2014 [...] LUMP IN HEAD AND NECK 04/10/2014 MOY AS400 DEVELOPER, CHRIS A 285.9 ANEMIA UNSPECIFIED 04/10/2014 MOY AS400 DEVELOPER, CHRIS A 723.1 CERVICALGIA 04/10/2014 MOY AS400 DEVELOPER, CHRIS A 729.5 PAIN IN LIMB 04/10/2014 MOY AS400 DEVELOPER, CHRIS A 784.2 SWELLING MASS OR LUMP IN HEAD AND NECK 04/10/2014 SALGUERO DO, PHILIPPE K 285.9 ANEMIA UNSPECIFIED 04/10/2014 SALGUERO DO, PHILIPPE K 723.1 CERVICALGIA 04/10/2014 SALGUERO DO, PHILIPPE K 729.5 PAIN IN LIMB 04/10/2014 PHILIPPE SALGUERO DO K 784.2 SWELLING MASS OR LUMP IN HEAD AND NECK 04/10/2014 ASHELY AS400 DEVELOPER, BOY J 285.9 ANEMIA UNSPECIFIED 04/10/2014 ASHELY AS400 DEVELOPER, BOY J 723.1 CERVICALGIA 04/10/2014 ASHELY AS400 DEVELOPER, BOY J 729.5 PAIN IN LIMB 04/10/2014 ASHELY AS400 DEVELOPER, BOY J 784.2 SWELLING MASS OR LUMP [...] UTERINE BLEEDING 06/21/2014 PHILIPPE SALGUERO DO V72.31 CUSTOM PROTECTION OFFICER EXAM, ROUTINE 06/21/2014 PHILIPPE SALGUERO DO V73.81 HPV SCREENING 06/21/2014 PHILIPPE SALGUERO DO V76.10 BREAST CANCER SCREENING 06/21/2014 HPILIPPE SALGUERO DO V76.2 CERVICAL CANCER SCREENING (PAP SMEAR) 06/21/2014 CHRIS WINTER APRN A 626.8 DYSFUNCTIONAL UTERINE BLEEDING 06/21/2014 MOYCHRIS Curiel APRN A V72.31 CUSTOM PROTECTION OFFICER EXAM, ROUTINE 06/21/2014 MOYCHRIS DELGADO APRN A V73.81 HPV SCREENING 06/21/2014 MOYCHRIS Curiel APRN A V76.10 BREAST CANCER SCREENING 06/21/2014 MOYCHRIS Curiel APRN A V76.2 CERVICAL CANCER SCREENING (PAP SMEAR) 06/21/2014 PHILIPPE SALGUERO DO 626.8 DYSFUNCTIONAL UTERINE BLEEDING 06/21/2014 PHILIPPE SALGUERO DO V72.31 CUSTOM PROTECTION OFFICER EXAM, ROUTINE 06/21/2014 PHILIPPE SALGUERO DO V73.81 HPV SCREENING 06/21/2014 PHILIPPE SALGUERO DO V76.10 BREAST CANCER SCREENING 06/21/2014 PHILIPPE SALGUERO DO V76.2 CERVICAL CANCER SCREENING (PAP SMEAR) 06/21/2014 BOY LUND APRN 626.8 DYSFUNCTIONAL UTERINE BLEEDING 06/21/2014 BOY LUND APRN V72.31 CUSTOM PROTECTION OFFICER EXAM, ROUTINE 06/21/2014 BOY LUND APRN V73.81 HPV SCREENING 06/21/2014 BOY LUND APRN V76.10 BREAST CANCER SCREENING 06/21/2014 BOY LUND APRN V76.2 CERVICAL CANCER SCREENING (PAP SMEAR) 06/21/2014 PHILIPPE SALGUERO DO 626.8 DYSFUNCTIONAL UTERINE BLEEDING 06/21/2014 PHILIPPE SALGUERO DO V72.31 CUSTOM PROTECTION OFFICER EXAM, ROUTINE 06/21/2014 PHILIPPE SALGUERO DO V73.81 [...] LIZZIE [place] Ot V74.8 07/16/2014 CHRIS WINTER AS400 DEVELOPER Ot 626.8 08/03/2014 PHILIPPE SALGUERO DO 288.3 EOSINOPHILIA 08/03/2014 PHILIPPE SALGUERO DO 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 08/03/2014 PHILIPPE SALGUERO DO 799.02 HYPOXEMIA 08/03/2014 PHILIPPE SALGUERO DO V15.81 PERSONAL HISTORY OF NONCOMPLIANCE WITH MEDICAL TREATMENT PRESENTING HAZARDS TO HEALTH 08/03/2014 CHRIS WINTER AS400 DEVELOPER Ot 626.8 08/13/2014 CHRIS WINTER AS400 DEVELOPER Ot 626.8 11/19/2014 CHRIS WINTER AS400 DEVELOPER Ot 626.8 11/20/2014 CHRIS WINTER AS400 DEVELOPER Ot 626.8 11/20/2014 SONA OLVERAMYNOR C Ot [...] MYNOR C Ot V72.84 11/27/2014 SONA OLVERA YMNOR C Ot 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 11/27/2014 MAGALLANES [...] 540.9 ACUTE APPENDICITIS NOS 12/07/2014 LOY CASTRO, JERRICA Ot 558.9 12/07/2014 LOY CASTRO, JERRICA Ot [...] BEN CASTRO, LIZZIE A Ot 625.6 12/19/2014 BNE CASTRO, LIZZIE A Ot V72.63 12/19/2014 BEN CASTRO, LIZZIE A Ot V74.8 12/27/2014 MAGALLANES DO, MYNOR C Ot 789.00 01/02/2015 MAGALLANES DO, MYNOR C Ot 789.00 04/17/2015 CHRIS WINTER AS400 DEVELOPER Ot 626.8 04/17/2015 MAGALLANES DO, MYNOR C Ot 626.8 04/17/2015 MAGALLANES DO, MYNOR C Ot V72.84 04/17/2015 MAGALLANES DO, MYNOR C Ot V74.8 04/17/2015 MAGALLANES DO, MYNOR C Ot 626.9 04/17/2015 MAGALLANES DO, MYNOR C Ot V72.84 04/17/2015 MAGALLANES DO, MYNOR C Ot 789.00 05/06/2015 MOYCHRIS AS400 DEVELOPER Ot 626.8 05/06/2015 MAGALLANES DO, MYNOR C Ot 626.8 05/06/2015 MAGALLANES DO, MYNOR C Ot V72.84 05/06/2015 MAGALLANES DO, MYNOR C Ot V74.8 05/06/2015 MAGALLANES DO, MYNOR C Ot 626.9 05/06/2015 MAGALLANES DO, MYNOR C Ot V72.84 05/06/2015 MAGALLANES DO, MYNOR C Ot 789.00 05/06/2015 ELIZABETH LEYVA AS400 DEVELOPER Ot N63 05/14/2015 BEN CASTRO, LIZZIE [place] [...] BODY FOL UNS 05/15/2015 GORDON ELIZABETH Román AS400 DEVELOPER Ot N63 05/21/2015 MAGALLANES DOMYNOR C Ot 626.9 05/21/2015 MYNOR MAGALLANES DO C Ot V72.84 05/21/2015 MAGALLANES MYNOR OLVERA C Ot 789.00 05/21/2015 ELIZABETH LEYVA AS400 DEVELOPER Ot N63 05/21/2015 SOFIA CASTRO, ANJUM Ferreira [...] 05/24/2015 LOY CASTRO, JERRICA Hays Z79.899 OTHER LONGTERM (CURRENT) DRUG THERAPY 06/14/2015 SOFIA CASTRO, ANJUM [...] ANJUM Ferreira Ot C50.912 06/25/2015 CHRIS WINTER AS400 DEVELOPER Ot 626.8 06/25/2015 MAGALLANES DO, MYNOR C Ot 626.8 06/25/2015 MAGALLANES DO, MYNOR C Ot V72.84 06/25/2015 MAGALLANES DO, MYNOR C Ot V74.8 06/25/2015 MAGALLANES DO, MYNOR C Ot 626.9 06/25/2015 MAGALLANES DO, MYNOR C Ot V72.84 06/25/2015 MAGALLANES DO, MYNOR C Ot 789.00 06/25/2015 ELIZABETH LEYVA AS400 DEVELOPER Ot N63 06/25/2015 SOFIA CASTRO, ANJUM Ferreira Ot C50.412 06/25/2015 SOFIA CASTRO, ANJUM Hanna Ot E66.01 06/25/2015 SOFIA CASTRO, ANJUM Hanna Ot E78.5 06/25/2015 SOFIA CASTRO, ANJUM Ferreira Ot F31.9 06/25/2015 SOFIA CASTRO, ANJUM Ferreira Ot I10 06/25/2015 SOFIA CASTRO, ANJUM Ferreira Ot J44.9 06/25/2015 SOFIA CASTRO, ANJUM Ferreira Ot K21.9 06/25/2015 SOFIA CASTRO, ANJUM Ferreira [...] ANJUM Ferreira Ot Z79.899 06/29/2015 CHRIS WINTER AS400 DEVELOPER Ot 626.8 06/29/2015 MAGALLANES DO, MYNOR C [...] CASTRO, LIZZIE [place] Ot N32.81 06/29/2015 BEN CASTRO, LIZZIE [place] Ot N39.46 06/29/2015 BEN CASTRO, [...] MAEVE Gamez Ot Z90.12 07/24/2015 CODY DIEZ COUNTERINTELLIGENCE AGENT Ot C50.412 07/24/2015 CODY DIEZ COUNTERINTELLIGENCE AGENT Ot E66.01 07/24/2015 CODY DIEZ COUNTERINTELLIGENCE AGENT Ot E78.5 07/24/2015 CODY DIEZ COUNTERINTELLIGENCE AGENT Ot F31.9 07/24/2015 CODY DIEZ COUNTERINTELLIGENCE AGENT Ot I10 07/24/2015 CODY DIEZ COUNTERINTELLIGENCE AGENT Ot J44.9 07/24/2015 CODY DIEZ COUNTERINTELLIGENCE AGENT Ot K21.9 07/24/2015 CODY DIEZ COUNTERINTELLIGENCE AGENT Ot Z17.0 07/24/2015 CODY DIEZ COUNTERINTELLIGENCE AGENT Ot Z68.41 07/24/2015 CODY DIEZ COUNTERINTELLIGENCE AGENT Ot Z79.899 07/30/2015 JERRICA GRANADO MD Ot [...] 08/07/2015 ANJUM BLACK MD Ot 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 08/09/2015 JERRICA GRANADO MD, Ot C50.912 MALIGNANT NEOPLASM OF UNSPECIFIED SITE O 08/09/2015 JERRICA GRANADO MD Ot I10 ESSENTIAL (PRIMARY) HYPERTENSION 08/09/2015 JERRICA GRANADO MD Ot Z79.899 OTHER LONGTERM (CURRENT) DRUG THERAPY 08/12/2015 ANJUM BLACK MD, [...] 08/12/2015 ANJUM BLACK MD Ot 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 08/13/2015 CODY DIEZ Ot 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 08/13/2015 DIEZCODY Sharma COUNTERINTELLIGENCE AGENT Ot E66.01 MORBID (SEVERE) OBESITY DUE TO EXCESS CA 08/13/2015 DIEZCODY Sharma COUNTERINTELLIGENCE AGENT Ot E78.5 HYPERLIPIDEMIA, UNSPECIFIED 08/13/2015 CODY DIEZ COUNTERINTELLIGENCE AGENT Ot F31.9 BIPOLAR DISORDER, UNSPECIFIED 08/13/2015 CODY DIEZ COUNTERINTELLIGENCE AGENT Ot I10 ESSENTIAL (PRIMARY) HYPERTENSION 08/13/2015 DIEZCODY Sharma COUNTERINTELLIGENCE AGENT Ot J44.9 CHRONIC OBSTRUCTIVE PULMONARY DISEASE, U 08/13/2015 CODY DIEZ COUNTERINTELLIGENCE AGENT Ot K21.9 GASTRO-ESOPHAGEAL REFLUX DISEASE WITHOUT 08/13/2015 DIEZCODY Sharma COUNTERINTELLIGENCE AGENT Ot Z17.0 ESTROGEN RECEPTOR POSITIVE STATUS [ER+] 08/13/2015 RG CODY Sharma COUNTERINTELLIGENCE AGENT Ot Z68.41 BODY MASS INDEX (BMI) 40.0-44.9, ADULT 08/13/2015 RG CODY Sharma COUNTERINTELLIGENCE AGENT Ot Z79.899 OTHER LONGTERM (CURRENT) DRUG THERAPY 08/21/2015 ANJUM BLACK MD [...] Ot K21.9 GASTRO-ESOPHAGEAL REFLUX DISEASE WITHOUT 08/21/2015 NAJUM BLACK MD Ot Z68.41 BODY MASS INDEX (BMI) 40.0-44.9, ADULT 08/21/2015 ANJUM BLACK MD Ot 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 08/22/2015 CODY DIEZ COUNTERINTELLIGENCE AGENT Ot 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 08/22/2015 RG CODY Sharma COUNTERINTELLIGENCE AGENT Ot E66.01 MORBID (SEVERE) OBESITY DUE TO EXCESS CA 08/22/2015 KAREN DIEZSARAH Edith COUNTERINTELLIGENCE AGENT Ot E78.5 HYPERLIPIDEMIA, UNSPECIFIED 08/22/2015 CODY DIEZ COUNTERINTELLIGENCE AGENT Ot F31.9 BIPOLAR DISORDER, UNSPECIFIED 08/22/2015 CODY DIEZ COUNTERINTELLIGENCE AGENT Ot I10 ESSENTIAL (PRIMARY) HYPERTENSION 08/22/2015 CODY DIEZP Ot J44.9 CHRONIC OBSTRUCTIVE PULMONARY DISEASE, U 08/22/2015 CODY DIEZ COUNTERINTELLIGENCE AGENT Ot K21.9 GASTRO-ESOPHAGEAL REFLUX DISEASE WITHOUT 08/22/2015 CODY DIEZ COUNTERINTELLIGENCE AGENT Ot Z17.0 ESTROGEN RECEPTOR POSITIVE STATUS [ER+] 08/22/2015 CODY DIEZ COUNTERINTELLIGENCE AGENT Ot Z68.41 BODY MASS INDEX (BMI) 40.0-44.9, ADULT 08/22/2015 CODY DIEZ COUNTERINTELLIGENCE AGENT Ot 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 09/12/2015 NIDHI CASTRO, ARUNA [...] 10/10/2015 ANJUM BLACK MD Ot 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 10/17/2015 ANJUM BLACK MD, Ot C50.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 [...] 10/17/2015 ANJUM BLACK MD Ot Z79.899 OTHER LONGTERM (CURRENT) DRUG THERAPY 11/12/2015 ANJUM BLACK MD, [...] SOFIA CASTRO, ANJUM Ferreira Ot 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 11/12/2015 ROCÍO STERN MD [...] 11/12/2015 ROCÍO STERN MD Ot Z79.899 OTHER LONGTERM (CURRENT) DRUG THERAPY 11/12/2015 ROCÍO STERN MD [...] 11/12/2015 ROCÍO STERN MD Ot 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 11/20/2015 ROCÍO STERN MD, Ot 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 11/20/2015 ROCÍO STERN MD Ot E66.01 MORBID (SEVERE) [...] 11/20/2015 ROCÍO STERN MD Ot Z79.899 OTHER LONGTERM (CURRENT) DRUG THERAPY 01/20/2016 ROCÍO STERN MD, [...] 01/20/2016 ROCÍO STERN MD Ot Z79.899 OTHER LONGTERM (CURRENT) DRUG THERAPY 01/20/2016 XAVIER GARSIA Ot [...] ADULT 01/20/2016 XAVIER GARSIA Ot 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 01/28/2016 CHRIS WINTER AS400 DEVELOPER Ot 626.8 MENSTRUAL DISORDER NEC 01/28/2016 MAGALLANES [...] ABDOMINAL PAIN, UNSPECIFIED SITE 01/28/2016 ELIZABETH LEYVA AS400 DEVELOPER Ot N63 UNSPECIFIED LUMP IN BREAST 01/28/2016 [...] SCREENING FOR OTHER BACTER 01/28/2016 DIEZCODY Sharma COUNTERINTELLIGENCE AGENT Ot 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 01/28/2016 DIEZCODY Sharma COUNTERINTELLIGENCE AGENT Ot E66.01 MORBID (SEVERE) OBESITY DUE TO EXCESS CA 01/28/2016 DIEZ CODY Sharma COUNTERINTELLIGENCE AGENT Ot E78.5 HYPERLIPIDEMIA, UNSPECIFIED 01/28/2016 DIEZ CODY Sharma COUNTERINTELLIGENCE AGENT Ot F31.9 BIPOLAR DISORDER, UNSPECIFIED 01/28/2016 RG CODY Sharma COUNTERINTELLIGENCE AGENT Ot I10 ESSENTIAL (PRIMARY) HYPERTENSION 01/28/2016 DIEZ CODY Sharma COUNTERINTELLIGENCE AGENT Ot J44.9 CHRONIC OBSTRUCTIVE PULMONARY DISEASE, U 01/28/2016 DIEZCODY Sharma COUNTERINTELLIGENCE AGENT Ot K21.9 GASTRO-ESOPHAGEAL REFLUX DISEASE WITHOUT 01/28/2016 KAREN DIEZSARAH MATTAP Ot Z17.0 ESTROGEN RECEPTOR POSITIVE STATUS [ER+] 01/28/2016 DIEZ CODY Sharma COUNTERINTELLIGENCE AGENT Ot Z68.41 BODY MASS INDEX (BMI) 40.0-44.9, ADULT 01/28/2016 DIEZ CODY MATTAP Ot Z79.899 OTHER LONGTERM (CURRENT) DRUG THERAPY 01/28/2016 ADYCAT ALCOCERSACHI Curiel [...] ADULT 01/28/2016 XAVIER GARSIA Ot Z79.899 OTHER LONGTERM (CURRENT) DRUG THERAPY 01/28/2016 XAVIER GARSIA Ot [...] ADULT 01/28/2016 XAVIER GARSIA Ot Z79.899 OTHER LONGTERM (CURRENT) DRUG THERAPY 02/24/2016 CHRIS WINTER AS400 DEVELOPER Ot 626.8 MENSTRUAL DISORDER NEC 02/24/2016 MAGALLANESMYNOR [...] ABDOMINAL PAIN, UNSPECIFIED SITE 02/24/2016 ELIZABETH LEYVA AS400 DEVELOPER Ot N63 UNSPECIFIED LUMP IN BREAST 02/24/2016 [...] SCREENING FOR OTHER BACTER 02/24/2016 CODY DIEZ COUNTERINTELLIGENCE AGENT Ot 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 02/24/2016 CODY DIEZ COUNTERINTELLIGENCE AGENT Ot E66.01 MORBID (SEVERE) OBESITY DUE TO EXCESS CA 02/24/2016 CODY DIEZP Ot E78.5 HYPERLIPIDEMIA, UNSPECIFIED 02/24/2016 CODY DIEZP Ot F31.9 BIPOLAR DISORDER, UNSPECIFIED 02/24/2016 CODY DIEZ COUNTERINTELLIGENCE AGENT Ot I10 ESSENTIAL (PRIMARY) HYPERTENSION 02/24/2016 CODY DIEZP Ot J44.9 CHRONIC OBSTRUCTIVE PULMONARY DISEASE, U 02/24/2016 CODY DIEZ COUNTERINTELLIGENCE AGENT Ot K21.9 GASTRO-ESOPHAGEAL REFLUX DISEASE WITHOUT 02/24/2016 CODY DIEZ COUNTERINTELLIGENCE AGENT Ot Z17.0 ESTROGEN RECEPTOR POSITIVE STATUS [ER+] 02/24/2016 CODY DIEZ COUNTERINTELLIGENCE AGENT Ot Z68.41 BODY MASS INDEX (BMI) 40.0-44.9, ADULT 02/24/2016 KAREN DIEZSARAH Sharma COUNTERINTELLIGENCE AGENT Ot Z79.899 OTHER LONGTERM (CURRENT) DRUG THERAPY 02/24/2016 XAVIER GARSIA Ot [...] ADULT 02/24/2016 XAVIER GARSIA Ot Z79.899 OTHER LONGTERM (CURRENT) DRUG THERAPY 03/20/2016 XAVIER GARSIA Ot [...] ADULT 03/20/2016 XAVIER GARSIA Ot 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 04/15/2016 CHRIS WINTER AS400 DEVELOPER Ot 626.8 MENSTRUAL DISORDER NEC 04/15/2016 MAGALLANES [...] ABDOMINAL PAIN, UNSPECIFIED SITE 04/15/2016 ELIZABETH LEYVA AS400 DEVELOPER Ot N63 UNSPECIFIED LUMP IN BREAST 04/15/2016 [...] SCREENING FOR OTHER BACTER 04/15/2016 CODY DIEZ COUNTERINTELLIGENCE AGENT Ot 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 04/15/2016 CODY DIEZ COUNTERINTELLIGENCE AGENT Ot E66.01 MORBID (SEVERE) OBESITY DUE TO EXCESS CA 04/15/2016 CODY DIEZP Ot E78.5 HYPERLIPIDEMIA, UNSPECIFIED 04/15/2016 CODY DIEZ COUNTERINTELLIGENCE AGENT Ot F31.9 BIPOLAR DISORDER, UNSPECIFIED 04/15/2016 CODY DIEZ COUNTERINTELLIGENCE AGENT Ot I10 ESSENTIAL (PRIMARY) HYPERTENSION 04/15/2016 CODY DIEZP Ot J44.9 CHRONIC OBSTRUCTIVE PULMONARY DISEASE, U 04/15/2016 CODY DIEZ COUNTERINTELLIGENCE AGENT Ot K21.9 GASTRO-ESOPHAGEAL REFLUX DISEASE WITHOUT 04/15/2016 CODY DIEZ Edith COUNTERINTELLIGENCE AGENT Ot Z17.0 ESTROGEN RECEPTOR POSITIVE STATUS [ER+] 04/15/2016 CODY DIEZ COUNTERINTELLIGENCE AGENT Ot Z68.41 BODY MASS INDEX (BMI) 40.0-44.9, ADULT 04/15/2016 KAREN DIEZSARAH Sharma COUNTERINTELLIGENCE AGENT Ot 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 04/15/2016 XAVIER GARSIA Ot [...] 04/15/2016 ADY, BOBAN N Ot 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 05/12/2016 ADY BOBAN N [...] 05/12/2016 ADY, BOBAN N Ot Z79.899 OTHER LONGTERM (CURRENT) DRUG THERAPY 05/19/2016 ADY, BOBAN N Ot 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 05/19/2016 DAY, BOBAN N Ot E66.01 MORBID (SEVERE) OBESITY [...] 05/19/2016 ADY, BOBAN N Ot Z79.899 OTHER LONGTERM (CURRENT) DRUG THERAPY 06/02/2016 ADY, BOBAN N [...] ADULT 06/02/2016 XAVIER GARSIA Ot 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 06/02/2016 CHRIS WINTER AS400 DEVELOPER Ot 626.8 MENSTRUAL DISORDER NEC 06/02/2016 MAGALLANES [...] ABDOMINAL PAIN, UNSPECIFIED SITE 06/02/2016 ELIZABETH LEYVA AS400 DEVELOPER Ot N63 UNSPECIFIED LUMP IN BREAST 06/02/2016 [...] SCREENING FOR OTHER BACTER 06/02/2016 DIEZCODY Sharma COUNTERINTELLIGENCE AGENT Ot 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 06/02/2016 CODY DIEZ COUNTERINTELLIGENCE AGENT Ot E66.01 MORBID (SEVERE) OBESITY DUE TO EXCESS CA 06/02/2016 CODY DIEZP Ot E78.5 HYPERLIPIDEMIA, UNSPECIFIED 06/02/2016 CODY DIEZ COUNTERINTELLIGENCE AGENT Ot F31.9 BIPOLAR DISORDER, UNSPECIFIED 06/02/2016 CODY DIEZ COUNTERINTELLIGENCE AGENT Ot I10 ESSENTIAL (PRIMARY) HYPERTENSION 06/02/2016 DIEZCODY Sharma COUNTERINTELLIGENCE AGENT Ot J44.9 CHRONIC OBSTRUCTIVE PULMONARY DISEASE, U 06/02/2016 CODY DIEZ COUNTERINTELLIGENCE AGENT Ot K21.9 GASTRO-ESOPHAGEAL REFLUX DISEASE WITHOUT 06/02/2016 DIEZCODY Sharma COUNTERINTELLIGENCE AGENT Ot Z17.0 ESTROGEN RECEPTOR POSITIVE STATUS [ER+] 06/02/2016 DIEZCODY Sharma COUNTERINTELLIGENCE AGENT Ot Z68.41 BODY MASS INDEX (BMI) 40.0-44.9, ADULT 06/02/2016 DIEZCODY Sharma COUNTERINTELLIGENCE AGENT Ot 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 06/02/2016 ADY, XAVIER Curiel [...] 06/02/2016 XAVIER GARSIA N Ot 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 06/17/2016 XAVIER GARSIA N Ot 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 06/17/2016 ADYXAVIER N Ot E66.01 MORBID (SEVERE) OBESITY DUE TO EXCESS CA 06/17/2016 XAVIER GARSIA N Ot E78.5 HYPERLIPIDEMIA, UNSPECIFIED 06/17/2016 XAVIER GARSIA N Ot F31.9 BIPOLAR DISORDER, UNSPECIFIED 06/17/2016 AYDXAVIER ALCOCER N Ot I10 ESSENTIAL (PRIMARY) HYPERTENSION 06/17/2016 XAVIER GARSIA N Ot J44.9 CHRONIC OBSTRUCTIVE PULMONARY DISEASE, U 06/17/2016 XAVIER GARSIA N Ot K21.9 GASTRO-ESOPHAGEAL REFLUX DISEASE WITHOUT 06/17/2016 ADYXAVIER ALCOCER N Ot Z68.41 BODY MASS INDEX (BMI) 40.0-44.9, ADULT 06/17/2016 XAVIER GARSIA N Ot Z79.899 OTHER LONGTERM (CURRENT) DRUG THERAPY 06/18/2016 XAVIER GARSIA N [...] 06/18/2016 XAVIER GARSIA N Ot Z79.899 OTHER LONGTERM (CURRENT) DRUG THERAPY 06/18/2016 CHRIS WINTER APRN [...] ADULT 06/18/2016 CODY DIEZ Ot Z79.899 OTHER LONGTERM (CURRENT) DRUG THERAPY 06/18/2016 ADY XAVIER N [...] 06/18/2016 ADY, XAVIER N Ot Z79.899 OTHER LONGTERM (CURRENT) DRUG THERAPY 06/18/2016 ADYXAVIER N Ot [...] 06/18/2016 ADY, BOBAN N Ot 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 06/24/2016 ADY, XAVIER N [...] 06/24/2016 XAVIER GARSIA N Ot Z79.899 OTHER LONGTERM (CURRENT) DRUG THERAPY 07/29/2016 XAVIER GARSIA Veena [...] 07/29/2016 XAVIER GARSIA N Ot Z79.899 OTHER LONGTERM (CURRENT) DRUG THERAPY 08/04/2016 CHRIS WINTER APRN [...] OF UPPER-OUTER QUADRANT O 08/04/2016 CODY DIEZ COUNTERINTELLIGENCE AGENT Ot E66.01 MORBID (SEVERE) OBESITY DUE TO EXCESS CA 08/04/2016 CODY DIEZP Ot E78.5 HYPERLIPIDEMIA, UNSPECIFIED 08/04/2016 CODY DIEZ COUNTERINTELLIGENCE AGENT Ot F31.9 BIPOLAR DISORDER, UNSPECIFIED 08/04/2016 CODY DIEZ COUNTERINTELLIGENCE AGENT Ot I10 ESSENTIAL (PRIMARY) HYPERTENSION 08/04/2016 CODY DIEZ COUNTERINTELLIGENCE AGENT Ot J44.9 CHRONIC OBSTRUCTIVE PULMONARY DISEASE, U 08/04/2016 CODY DIEZ COUNTERINTELLIGENCE AGENT Ot K21.9 GASTRO-ESOPHAGEAL REFLUX DISEASE WITHOUT 08/04/2016 CODY DIEZ COUNTERINTELLIGENCE AGENT Ot Z17.0 ESTROGEN RECEPTOR POSITIVE STATUS [ER+] 08/04/2016 CODY DIEZ COUNTERINTELLIGENCE AGENT Ot Z68.41 BODY MASS INDEX (BMI) 40.0-44.9, ADULT 08/04/2016 CODY DIEZ COUNTERINTELLIGENCE AGENT Ot Z79.899 OTHER LONGTERM (CURRENT) DRUG THERAPY 08/04/2016 XAVIER GARSIA Ot [...] ADULT 08/04/2016 XAVIER GARSIA Ot 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 08/04/2016 CODY DIEZ COUNTERINTELLIGENCE AGENT Ot 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 08/04/2016 CODY DIEZP Ot Z12.31 ENCNTR SCREEN MAMMOGRAM FOR MALIGNANT NE 08/06/2016 CODY DIEZ COUNTERINTELLIGENCE AGENT Ot 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 08/06/2016 CODY DIEZ COUNTERINTELLIGENCE AGENT Ot Z12.31 ENCNTR SCREEN MAMMOGRAM FOR MALIGNANT NE 08/06/2016 CODY DIEZ COUNTERINTELLIGENCE AGENT Ot 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 08/06/2016 CODY DIEZ COUNTERINTELLIGENCE AGENT Ot Z12.31 ENCNTR SCREEN MAMMOGRAM FOR MALIGNANT NE 08/06/2016 CODY DIEZ COUNTERINTELLIGENCE AGENT Ot 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 08/06/2016 CODY DIEZ COUNTERINTELLIGENCE AGENT Ot Z12.31 ENCNTR SCREEN MAMMOGRAM FOR MALIGNANT NE 08/07/2016 CODY DIEZ COUNTERINTELLIGENCE AGENT Ot 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 08/07/2016 CODY DIEZ COUNTERINTELLIGENCE AGENT Ot 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 08/07/2016 CODY DIEZP Ot Z12.31 ENCNTR SCREEN MAMMOGRAM FOR MALIGNANT NE 08/07/2016 CODY DIEZP Ot Z79.818 LNG TRM (CRNT) USE OF AGNT AFF ESTROG RE 08/07/2016 CODY DIEZP Ot Z90.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, BILATERAL 08/31/2016 CODY DIEZ COUNTERINTELLIGENCE AGENT Ot 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 08/31/2016 CODY DIEZ COUNTERINTELLIGENCE AGENT Ot 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 08/31/2016 CODY DIEZ COUNTERINTELLIGENCE AGENT Ot Z12.31 ENCNTR SCREEN MAMMOGRAM FOR MALIGNANT NE 08/31/2016 CODY DIEZ Ot Z79.818 LNG TRM (CRNT) USE OF AGNT AFF ESTROG RE 08/31/2016 CODY DIEZ COUNTERINTELLIGENCE AGENT Ot Z90.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, BILATERAL 09/07/2016 CODY DIEZ COUNTERINTELLIGENCE AGENT Ot 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 09/07/2016 CODY DIEZ COUNTERINTELLIGENCE AGENT Ot 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 09/07/2016 CODY DIEZ COUNTERINTELLIGENCE AGENT Ot Z12.31 ENCNTR SCREEN MAMMOGRAM FOR MALIGNANT NE 09/07/2016 CODY DIEZP Ot Z79.818 LNG TRM (CRNT) USE OF AGNT AFF ESTROG RE 09/07/2016 CODY DIEZ COUNTERINTELLIGENCE AGENT Ot Z90.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, BILATERAL 09/10/2016 CODY DIEZ COUNTERINTELLIGENCE AGENT Ot 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 09/10/2016 CODY DIEZ COUNTERINTELLIGENCE AGENT Ot 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 09/10/2016 CODY DIEZ COUNTERINTELLIGENCE AGENT Ot Z12.31 ENCNTR SCREEN MAMMOGRAM FOR MALIGNANT NE 09/10/2016 CODY DIEZ Ot Z79.818 LNG TRM (CRNT) USE OF AGNT AFF ESTROG RE 09/10/2016 CODY DIEZ COUNTERINTELLIGENCE AGENT Ot Z90.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, BILATERAL [...] Ot 789.00 ABDOMINAL PAIN, UNSPECIFIED SITE 09/10/2016 ELIZABETH LEYVA APRN Ot N63 UNSPECIFIED LUMP IN BREAST 09/10/2016 EBN CASTRO, LIZZIE [place] Ot N32.81 OVERACTIVE BLADDER 09/10/2016 BEN CASTRO, LIZZIE [place] Ot N39.46 MIXED INCONTINENCE 09/10/2016 BEN CASTRO, LIZZIE [place] Ot Z01.818 ENCOUNTER FOR OTHER PREPROCEDURAL EXAMIN 09/10/2016 BEN CASTRO, LIZZIE [place] Ot Z11.2 ENCOUNTER FOR SCREENING FOR OTHER BACTER 09/10/2016 SOFIA CASTRO, AJNUM Ferreira Ot C50.912 MALIGNANT NEOPLASM OF UNSPECIFIED [...] ADULT 09/10/2016 CODY DIEZP Ot Z79.899 OTHER LONGTERM (CURRENT) DRUG THERAPY 09/10/2016 XAVIER GARSIA N [...] 09/10/2016 ADYXAVIER ALCOCER N Ot 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 09/10/2016 CODY DIEZ COUNTERINTELLIGENCE AGENT Ot 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 09/10/2016 CODY DIEZ COUNTERINTELLIGENCE AGENT Ot 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 09/10/2016 [...] Ot K21.9 GASTRO-ESOPHAGEAL REFLUX DISEASE WITHOUT 09/11/2016 XAVIER GARSIA Veena Ot Z68.41 BODY MASS INDEX (BMI) 40.0-44.9, ADULT 09/11/2016 XAVIER GARSIA Veena Ot Z79.899 OTHER LONGTERM (CURRENT) DRUG THERAPY 09/18/2016 ADY CATSACHI Venea Ot 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 [...] 09/18/2016 XAVIER GARSIA Veena Ot Z79.899 OTHER LONGTERM (CURRENT) DRUG THERAPY 09/27/2016 RADHA GEORGES MD [...] OF DISEASES OF THE MS S 10/26/2016 ADYXAVIER Ot 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 [...] 10/26/2016 XAVIER GARSIA N Ot Z79.899 OTHER LONGTERM (CURRENT) DRUG THERAPY 10/26/2016 XAVIER GARSIA N [...] 10/26/2016 XAVIER GARSIA N Ot 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 10/26/2016 CHRIS WINTER AS400 DEVELOPER Ot 626.8 MENSTRUAL DISORDER NEC 10/26/2016 MAGALLANES [...] PAIN, UNSPECIFIED SITE 10/26/2016 LEYVA, ELIZABETH A [employer]400 DEVELOPER Ot N63 UNSPECIFIED LUMP IN BREAST 10/26/2016 [...] F31.9 BIPOLAR DISORDER, UNSPECIFIED 10/26/2016 CODY DIEZ COUNTERINTELLIGENCE AGENT Ot I10 ESSENTIAL (PRIMARY) HYPERTENSION 10/26/2016 CODY DIEZ COUNTERINTELLIGENCE AGENT Ot J44.9 CHRONIC OBSTRUCTIVE PULMONARY DISEASE, U 10/26/2016 CODY DIEZ COUNTERINTELLIGENCE AGENT Ot K21.9 GASTRO-ESOPHAGEAL REFLUX DISEASE WITHOUT 10/26/2016 CODY DIEZ COUNTERINTELLIGENCE AGENT Ot Z17.0 ESTROGEN RECEPTOR POSITIVE STATUS [ER+] 10/26/2016 CODY DIEZ COUNTERINTELLIGENCE AGENT Ot Z68.41 BODY MASS INDEX (BMI) 40.0-44.9, ADULT 10/26/2016 CODY DIEZ COUNTERINTELLIGENCE AGENT Ot Z79.899 OTHER LONGTERM (CURRENT) DRUG THERAPY 10/26/2016 XAVIER GARSIA Ot [...] ADULT 10/26/2016 XAVIER GARSIA Ot 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 10/26/2016 CODY DIEZ COUNTERINTELLIGENCE AGENT Ot 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 10/26/2016 CODY DIEZ COUNTERINTELLIGENCE AGENT Ot 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 10/26/2016 CODY DIEZP Ot Z12.31 ENCNTR SCREEN MAMMOGRAM FOR MALIGNANT NE 10/26/2016 CODY DIEZ COUNTERINTELLIGENCE AGENT Ot Z79.818 LNG TRM (CRNT) USE OF AGNT AFF ESTROG RE 10/26/2016 CODY DIEZ COUNTERINTELLIGENCE AGENT Ot Z90.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, BILATERAL 11/27/2016 CHRIS WINTER AS400 DEVELOPER Ot 626.8 MENSTRUAL DISORDER NEC 11/27/2016 MYNOR [...] ABDOMINAL PAIN, UNSPECIFIED SITE 11/27/2016 ELIZABETH LEYVA AS400 DEVELOPER Ot N63 UNSPECIFIED LUMP IN BREAST 11/27/2016 [...] ADULT 11/27/2016 CODY DIEZP Ot 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 11/27/2016 CODY DIEZP Ot [...] 11/27/2016 ADY, BOBAN N Ot Z79.899 OTHER LONGTERM (CURRENT) DRUG THERAPY 12/02/2016 ADY BOBAN N [...] 12/02/2016 ADY, BOBAN N Ot Z79.899 OTHER LONGTERM (CURRENT) DRUG THERAPY 01/01/2017 CHRIS WINTER APRN [...] INDEX (BMI) 40.0-44.9, ADULT 01/01/2017 CODY DIEZ COUNTERINTELLIGENCE AGENT Ot Z79.899 OTHER LONGTERM (CURRENT) DRUG THERAPY 01/01/2017 CODY DIEZ COUNTERINTELLIGENCE AGENT Ot 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 01/01/2017 CODY DIEZ COUNTERINTELLIGENCE AGENT Ot 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 01/01/2017 CODY DIEZP Ot Z12.31 ENCNTR SCREEN MAMMOGRAM FOR MALIGNANT NE 01/01/2017 CODY DIEZ COUNTERINTELLIGENCE AGENT Ot Z79.818 LNG TRM (CRNT) USE OF AGNT AFF ESTROG RE 01/01/2017 CODY DIEZ COUNTERINTELLIGENCE AGENT Ot Z90.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, BILATERAL [...] ADULT 01/01/2017 XAVIER GARSIA Ot 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 01/27/2017 CHRIS WINTER APRN [...] ADULT 01/27/2017 CODY DIEZP Ot Z79.899 OTHER LONGTERM (CURRENT) DRUG THERAPY 01/27/2017 CODY DIEZP Ot 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 01/27/2017 RGCODY COUNTERINTELLIGENCE AGENT Ot 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 01/27/2017 DIEZCODY Sharma COUNTERINTELLIGENCE AGENT Ot Z12.31 ENCNTR SCREEN MAMMOGRAM FOR MALIGNANT NE 01/27/2017 CODY DIEZ COUNTERINTELLIGENCE AGENT Ot Z79.818 LNG TRM (CRNT) USE OF AGNT AFF ESTROG RE 01/27/2017 CODY DIEZ REX Ot Z90.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, BILATERAL 01/27/2017 CHRIS WINTER AS400 DEVELOPER Ot 626.8 MENSTRUAL DISORDER NEC 01/27/2017 MAGALLANES [...] ABDOMINAL PAIN, UNSPECIFIED SITE 01/27/2017 ELIZABETH LEYVA AS400 DEVELOPER Ot N63 UNSPECIFIED LUMP IN BREAST 01/27/2017 [...] SCREENING FOR OTHER BACTER 01/27/2017 CODY DIEZ COUNTERINTELLIGENCE AGENT Ot 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 01/27/2017 CODY DIEZ COUNTERINTELLIGENCE AGENT Ot E66.01 MORBID (SEVERE) OBESITY DUE TO EXCESS CA 01/27/2017 CODY DIEZ COUNTERINTELLIGENCE AGENT Ot E78.5 HYPERLIPIDEMIA, UNSPECIFIED 01/27/2017 CODY DIEZ COUNTERINTELLIGENCE AGENT Ot F31.9 BIPOLAR DISORDER, UNSPECIFIED 01/27/2017 CODY DIEZ COUNTERINTELLIGENCE AGENT Ot I10 ESSENTIAL (PRIMARY) HYPERTENSION 01/27/2017 RGCODY COUNTERINTELLIGENCE AGENT Ot J44.9 CHRONIC OBSTRUCTIVE PULMONARY DISEASE, U 01/27/2017 CODY DIEZ COUNTERINTELLIGENCE AGENT Ot K21.9 GASTRO-ESOPHAGEAL REFLUX DISEASE WITHOUT 01/27/2017 CODY DIEZ COUNTERINTELLIGENCE AGENT Ot Z17.0 ESTROGEN RECEPTOR POSITIVE STATUS [ER+] 01/27/2017 DIEZCODYP Ot Z68.41 BODY MASS INDEX (BMI) 40.0-44.9, ADULT 01/27/2017 CODY DIEZP Ot 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 01/27/2017 RGCODYP Ot 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 01/27/2017 DIEZCODY Sharma COUNTERINTELLIGENCE AGENT Ot 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 01/27/2017 DIEZCODY Sharma COUNTERINTELLIGENCE AGENT Ot Z12.31 ENCNTR SCREEN MAMMOGRAM FOR MALIGNANT NE 01/27/2017 CODY DIEZP Ot Z79.818 LNG TRM (CRNT) USE OF AGNT AFF ESTROG RE 01/27/2017 CODY DIEZ COUNTERINTELLIGENCE AGENT Ot Z90.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, BILATERAL Procedures Code Description [place] [address] BRONCHODILATION PRE/POST 02/23/2012 02066 RESPIRATORY FLOW VOLUME LOOP 02/23/2012 93935 SPIROMETRY 2011 NEURO MEAGAN LAZO 05/01/2012 OphthalmLeno Dyer 06/30/2012 72144 EXCISION BENIGN LESION 0.6-1 cm (spcify location in [facility] description) 07/04/2012 10742 EXCISION BENIGN LESION 1.1-2 cm (specify location in [facility] descriiption) 07/04/2012 30984 MRI BRAIN W/O & W/DYE 07/04/2012 ALBERTO WILKERSON 2012 15037 MRI BRAIN W/O CONTRAST 07/05/201252 TRIGGER POINT INJ/1-2 MUS 07/21/2012 21900 ROUTINE VENIPUNCTURE 08/25/2012 88384 CMP 08/25/2012 6533236 GFR CALC (RESULT ONLY) 08/25/2012 63613 VITAMIN D 25-HYDROXY (D2,D3, TOTAL) 08/25/201200288 TRIGGER POINT INJ/1-2 MUS 09/07/2012 20643 A1C (IN-HOUSE) 46298 OXIMETRY - OVERNIGHT 11/08/2012 OphthalmLg Durán 12/08/2012 G0008 FLU ADMINISTRATION (MEDICARE ONLY) 01/11/2013 UROLOGY LIZZIE CONTRERAS 42175 OXIMETRY 2012 34626 THERAPUTIC INJ SQ/IM 02/27/2013 J1050 DEPO PROVERA 02/2013 33038 URINE TEST (IN-HOUSE) 02/27/2013 97879 ROUTINE VENIPUNCTURE 04/07/2013 G0438 PPPS, INITIAL VISIT 04/07/2013 1034974 GFR CALC (RESULT ONLY) 04/07/2013 82877 [facility] 04/07/2013 95393 ROUTINE VENIPUNCTURE 05/22/2013 J1050 DEPO PROVERA 06/2013 33987 THERAPUTIC INJ SQ/IM 05/22/2013 76076 CMP 05/22/2013 2164874 GFR CALC (RESULT ONLY) 05/22/2013 64967 ROUTINE VENIPUNCTURE 08/02/2013 40510 UA W/ CULTURE IF INDICATED 08/02/2013 4779394 GFR CALC (RESULT ONLY) 08/02/2013 43544 CMP 08/02/2013 10256 LIPID PANEL 08/02 46530 CULTURE URINE 85831 ROUTINE VENIPUNCTURE 09/15/2013 79473 THERAPUTIC INJ SQ/IM 09/15/2013 J1050 DEPO PROVERA 14926 CMP 09/15/2013 5206913 GFR CALC (RESULT ONLY) 09/15/2013 00578 ROUTINE VENIPUNCTURE 12/08/2013 80361 CMP 12/08/2013 11970 TSH 12/08/2013 G0008 FLU ADMINISTRATION (MEDICARE ONLY) 01/08/2014 15996 ROUTINE VENIPUNCTURE 03/30/2014 IRGROUP IRON GROUP (IRON,TIBC, FERRITIN) 03/30/2014 76136 PSYCH DIAGNOSTIC EVALUATION 03/30/2014 99933 CBC 03/30/2014 [id number] GFR CALC (RESULT ONLY) 03/30/2014 54542 CMP 03/30/2014 24189 IRON SERUM 2013 44711 IRON BNDNG CAP 14119 TSH 03/30/2014 79510 FERRITIN 2013 34131 US HEAD (SOFT TISSUE) ULTRASOUND, HEAD 04/10/2014 26991 UA W/ CULTURE IF INDICATED 07/10/2014 74441 THERAPUTIC INJ SQ/IM 07/18/2014 J1050 DEPO PROVERA 04/2014 36005 TEST, URINE (IN-HOUSE) 07/18/2014 Results Test Result Range Complete blood count (CBC) with automated white blood cell (WBC) differential - 03/05/17 22:20 Blood leukocytes automated count (number/volume) 11.1 10*3/ uL 4.3-11.0 Blood erythrocytes automated count (number/volume) 3.94 10*6 /uL 4.35-5.85 Venous blood hemoglobin measurement (mass/volume) 10.5 g/dL 11.5-16.0 Blood hematocrit (volume fraction) 34 % 35-52 Automated erythrocyte mean corpuscular volume 86 [foz_us] 80-99 Automated erythrocyte mean corpuscular hemoglobin (mass per erythrocyte) 27 pg 25-34 Automated erythrocyte mean corpuscular hemoglobin concentration measurement ( mass/volume) 31 g/dL 32-36 Automated erythrocyte distribution width ratio 12.3 % 10.0-14.5 Automated blood platelet count (count/volume) 492 10*3/uL 130-400 Automated blood platelet mean volume measurement 8.6 [foz_us ] 7.4-10.4 Automated blood neutrophils/100 leukocytes 53 % 42-75 Automated blood lymphocytes/100 leukocytes 31 % 12-44 Blood monocytes/100 leukocytes 6 % 0-12 Automated blood eosinophils/100 leukocytes 10 % 0-10 Automated blood basophils/100 leukocytes 1 % 0-10 Blood neutrophils automated count (number/volume) 5.8 10*3 1.8-7.8 Blood lymphocytes automated count (number/volume) 3.5 10*3 1.0-4.0 Blood monocytes automated count (number/volume) 0.6 10*3 0.0-1.0 Automated eosinophil count 1.1 10*3/uL 0.0-0.3 Automated blood basophil count (count/volume) 0.1 10*3/uL 0.0-0.1 Encounters ACCT No. Visit Date/Time Discharge Status Pt. Type Provider Facility Loc./Unit Complaint [id number] 08/03/2014 10:10:00 08/03/2014 23: 59:59 CLS Outpatient PHILIPPE SALGUERO DO [id number] 07/19/2014 11:04:00 07/19/2014 23: 59:59 CLS Outpatient BOY LUND APRN [id number] 07/18/2014 14:08:00 07/18/2014 23: 59:59 CLS Outpatient PHILIPPE SALGUERO DO [id number] 07/10/2014 13:29:00 07/10/2014 23: 59:59 CLS Outpatient CHRIS WINTER APRN [id number] 06/29/2014 08:24:00 06/29/2014 23: 59:59 CLS Outpatient PHILIPPE SALGUERO DO [id number] 04/10/2014 11:18:00 04/10/2014 23: 59:59 CLS Outpatient PHILIPPE SALGUERO DO [id number] 03/30/2014 14:55:00 03/30/2014 23: 59:59 CLS Outpatient IVET MAYJACKIE [id number] 02/09/2014 09:53:00 02/09/2014 23: 59:59 CLS Outpatient PHILIPPE SALGUERO DO [id number] 02/08/2014 11:58:00 02/08/2014 23: 59:59 CLS Outpatient BOY LUND APRN [id number] 02/08/2014 11:58:00 02/08/2014 23: 59:59 CLS Outpatient BOY LUND APRN [id number] 01/09/2014 11:47:00 01/09/2014 23: 59:59 CLS Outpatient BOY LUND APRN [id number] 01/09/2014 11:47:00 01/09/2014 23: 59:59 CLS Outpatient BOY LUND APRN [id number] 01/08/2014 10:59:00 01/08/2014 23: 59:59 CLS Outpatient PHILIPPE SALGUERO DO [id number] 12/08/2013 13:56:00 12/08/2013 23: 59:59 CLS Outpatient PHILIPPE SALGUERO DO Hanna [id number] 12/07/2013 10:42:00 12/07/2013 23: 59:59 CLS Outpatient ASHELY VASQUES BOY J [id number] 10/31/2013 14:19:00 10/31/2013 23: 59:59 CLS Outpatient BECKY LUND APRNMINDY Hawthorne [id number] 10/31/2013 14:19:00 10/31/2013 23: 59:59 CLS Outpatient ASHELY VASQUES BOY J [id number] 10/16/2013 11:01:00 10/16/2013 23: 59:59 CLS Outpatient PHILIPPE SALGUERO DO Hanna [id number] 10/06/2013 11:06:00 10/06/2013 23: 59:59 CLS Outpatient WHITE DEEDEE JACOBSON [id number] 09/27/2013 16:06:00 09/27/2013 23: 59:59 CLS Outpatient ASHELY SPANGLERVeena BOY J [id number] 09/27/2013 16:06:00 09/27/2013 23: 59:59 CLS Outpatient ASHELY SPANGLERVeena BOY J [id number] 09/19/2013 00:00:00 09/19/2013 23: 59:59 CLS Outpatient WHITE DEEDEE JACOBSON [id number] 09/15/2013 09:35:00 09/15/2013 23: 59:59 CLS Outpatient PHILIPPE SALGUERO DO Hanna [id number] 09/15/2013 09:35:00 09/15/2013 23: 59:59 CLS Outpatient PHILIPPE SALGUERO DO Hanna [id number] 09/07/2013 12:40:00 09/07/2013 23: 59:59 CLS Outpatient ASHELY SPANGLERVeena BOY J [id number] 09/01/2013 10:36:00 09/01/2013 23: 59:59 CLS Outpatient WHITE DEEDEE JACOBSON [id number] 08/07/2013 09:51:00 08/07/2013 23: 59:59 CLS Outpatient TANISHA SALGUERO DORomán Ferreira [id number] 08/02/2013 12:13:00 08/02/2013 23: 59:59 CLS Outpatient MAEVE NARAYANAN PA-C [id number] 07/25/2013 11:41:00 07/25/2013 23: 59:59 CLS Outpatient WHITE IVONSDEEDEE [id number] 07/03/2013 16:31:00 07/03/2013 23: 59:59 CLS Outpatient SALGUERO DOPHILIPPE [id number] 05/22/2013 13:20:00 05/22/2013 23: 59:59 CLS Outpatient SALGUERO DOPHILIPPE [id number] 05/22/2013 13:20:00 05/22/2013 23: 59:59 CLS Outpatient SALGUERO DOPHILIPPE [id number] 04/07/2013 12:55:00 04/07/2013 23: 59:59 CLS Outpatient SALGUERO DOPHILIPPE [id number] 04/07/2013 12:55:00 04/07/2013 23: 59:59 CLS Outpatient SALGUERO DOPHILIPPE [id number] 02/27/2013 09:52:00 02/27/2013 23: 59:59 CLS Outpatient SALGUERO DOPHILIPPE [id number] 02/27/2013 09:52:00 02/27/2013 23: 59:59 CLS Outpatient SALGUERO DOPHILIPPE [id number] 01/27/2013 13:52:00 01/27/2013 23: 59:59 CLS Outpatient SALGUERO DOPHILIPPE [id number] 01/11/2013 09:50:00 01/11/2013 23: 59:59 CLS Outpatient SALGUERO DOPHILIPPE [id number] 07/21/2012 09:13:00 07/21/2012 23: 59:59 CLS Outpatient SALGUERO DOPHILIPPE [id number] 07/04/2012 17:00:00 07/04/2012 23: 59:59 CLS Outpatient SALGUERO DOPHILIPPE [id number] 05/27/2012 16:26:00 05/27/2012 23: 59:59 CLS Outpatient SALGUERO DOPHILIPPE [id number] 04/29/2012 15:48:00 04/29/2012 23: 59:59 CLS Outpatient [id number] 04/06/2012 10:14:00 04/06/2012 23: 59:59 CLS Outpatient LOBO CHERY DDS [id number] 03/08/2012 09:54:00 03/08/2012 23: 59:59 CLS Outpatient [id number] 02/04/2012 08:39:00 02/04/2012 23:59 :59 CLS Outpatient SALGUERO DOPHILIPPE [id number] 12/08/2012 10:16:00 Document Registration [id number] 12/08/2012 10:16:00 Document Registration [id number] 11/05/2012 09:28:00 Document Registration [id number] 10/10/2012 10:09:00 Document Registration [id number] 10/06/2012 10:28:00 Document Registration [id number] 09/07/2012 11:04:00 Document Registration [id number] 08/25/2012 13:39:00 Document Registration [id number] 07/21/2012 09:13:00 Document Registration [id number] 02/11/2017 18:47:00 2016 19:56:00 DIS Emergency MARLO OLVERA KENDY K [facility] ER RASH [id number] 12/01/2016 12:31:00 2016 13:08:00 DIS Outpatient XAVIER GARSIA [facility] ONC [id number] 07/28/2016 12:09:00 2016 00:01:00 DIS Outpatient XAVIER GARSIA [facility] ONC [id number] 09/27/2016 13:43:00 2016 14:58:00 DIS Emergency DESTINI CASTRO, RADHA Hawthorne [facility] ER R KNEE PAIN [id number] 08/06/2016 09:56:00 2016 23:59:59 CLS Outpatient CODY DIEZ [facility] RAD C50.112,Z79.818,Z12.31 [id number] 03/19/2016 11:42:00 2016 00:01:00 DIS Outpatient XAVIER GARSIA [facility] ONC [id number] 11/19/2015 08:22:00 2015 11:04:00 DIS Outpatient JARRED CASTRO, ROCÍO [facility] ONC [id number] 10/01/2015 08:40:00 2015 11:12:00 DIS Outpatient ANJUM BLACK MD [facility] ONC [id number] 09/18/2015 08:22:00 2015 12:55:00 DIS Outpatient NIDHI CASTRO, ARUNA Pan [facility] SDC HISTORY OR BREAST CANCER [id number] 09/12/2015 05:36:00 2015 10:45:00 DIS Outpatient NIDHI CASTRO, ARUNA Pan [facility] PREOP HISTORY OF BREAST CANCER [id number] 08/13/2015 14:40:00 2015 23:59:59 CLS Preadmit CODY DIEZ [facility] ONC [id number] 07/25/2015 12:59:00 2015 00:01:00 DIS Outpatient ANJUM BLACK MD [facility] ONC [id number] 08/01/2015 06:55:00 2015 11:05:00 DIS Outpatient JERRICA GRANADO MD [facility] BREAST CANCER LEFT BREAST [id number] 07/30/2015 08:12:00 2015 08:29:00 DIS Outpatient JERRICA GRANADO MD [facility] PREOP BREAST CANCER LEFT BREAST [id number] 07/23/2015 14:15:00 2015 23:59:59 CLS Outpatient CODY DIEZ [facility] ONC [id number] 06/29/2015 00:19:00 2015 03:29:00 DIS Emergency MAEVE CHANEL MD [facility] ER BLOOD IN STOOL [id number] 05/23/2015 06:25:00 2015 11:00:00 DIS Outpatient JERRICA GRANADO MD [facility] CARD LEFT BREAST CANCER [id number] 05/21/2015 08:25:00 2015 23:59:59 CLS Outpatient ANJUM BLACK MD [facility] RAD BREAST CANCER INITAL STAGING [id number] 05/14/2015 06:00:00 2015 10:07:00 DIS Outpatient LIZZIE CONTRERAS MD [facility] OVERACTIVE BLADDER; VAGINAL LESION; VAGINAL FB [id number] 05/09/2015 05:49:00 2015 23:59:59 CLS Outpatient LIZZIE CONTRERAS MD [facility] PREOP OVERACTIVE BLADDER; VAGINAL LESION; VAGIONAL FB [id number] 04/17/2015 11:31:00 2014 23:59:59 CLS Outpatient ELIZABETH LEYVA APRN [facility] RAD BREAST MASS [id number] 12/06/2014 17:30:00 2014 18:30:00 DIS Outpatient JERRICA GRANADO MD [facility] ACUTE APPENDICITIS [id number] 12/06/2014 13:26:00 2014 23:59:59 CLS Outpatient MYNOR MAGALLANES DO [facility] RAD ABDOMINAL PAIN [id number] 12/06/2014 13:18:00 2014 23:59:59 CLS Preadmit MYNOR MAGALLANES DO [facility] RAD ABD PAIN [id number] 12/06/2014 11:19:00 2014 12:38:00 DIS Emergency ALONSO PARRA MD [facility] ER RIGHT SIDE ABD PAIN [id number] 11/27/2014 06:11:00 2014 18:25:00 DIS Outpatient MYNOR MAGALLANES DO [facility] ABNORMAL UTERINE BLEEDING; FAILED NOVASURE [id number] 11/23/2014 07:02:00 2014 23:59:59 CLS Outpatient MYNOR MAGALLANES DO [facility] PREOP ABNORMAL UTERINE BLEEDING; FAILED NOVASURE [id number] 11/20/2014 07:20:00 2014 11:35:00 DIS Outpatient MYNOR MAGALLANES DO [facility] DYSFUNCTIONAL UTERINE BLEEDING [id number] 11/19/2014 08:55:00 2014 23:59:59 CLS Outpatient MYNOR MAGALLANES DO [facility] PREOP DYSFUNCTIONAL UTERINE BLEEDING [id number] 07/12/2014 09:38:00 2014 23:59:59 CLS Outpatient CHRIS WINTER APRN [facility] RAD SCREENING,DUB [id number] 02/04/2014 00:09:00 2013 00:40:00 DIS Emergency RONEL GRAVES DO [facility] ER [id number] 05/17/2013 06:36:00 2013 13:43:00 DIS Outpatient LIZZIE CONTRERAS MD [facility] [id number] 05/15/2013 09:28:00 2013 23:59:59 CLS Outpatient LIZZIE CONTRERAS MD [facility] PREOP [id number] 10/01/2012 11:14:00 2012 23:59:59 CLS Outpatient [id number] 03/05/2017 22:04:00 ACT Emergency KENDY SELLERS DO [facility] ER RT BREAST PAIN,FEVER,POST MASTECTOMY [id number] 05/22/2015 11:29:00 Document Registration [id number] 04/30/2014 10:38:00 Document Registration [id number] 04/30/2014 10:38:00 Document Registration [id number] 04/30/2014 10:37:00 Document Registration [id number] 03/03/2012 12:43:00 Document Registration [id number] 11/30/2011 15:34:00 Document Registration [id number] 04/07/2011 13:21:00 Document Registration [id number] 03/24/2011 11:32:00 Document Registration [id number] 12/26/2009 08:45:00 Document Registration [id number] 12/18/2009 08:51:00 Document Registration [id number] 12/03/2009 16:08:00 Document Registration [id number] 11/29/2009 08:46:00 Document Registration [id number] 11/21/2009 07:39:00 Document Registration [id number] 08/22/2009 11:54:00 Document Registration [id number] 12/20/2008 12:16:00 Document Registration [id number] 11/30/2008 08:21:00 Document Registration [id number] 11/19/2008 16:36:00 Document Registration [id number] 11/09/2008 08:08:00 Document Registration
[2017-03-05] MEDS ORDERED: LACT1CAP8 PO (23:19)
[2017-03-05] MEDS ORDERED: CLIN300C11 PO (23:19)
[2017-03-05 23:42] VITALS: BP 148/87
--- NOTE | 2017-03-06 07:17 | Diagnostic Imaging Report ---
INDICATION: Redness and hardness of right breast. Post mastectomy. FINDINGS: The lungs are well aerated. There are no infiltrates. No masses. The heart is not enlarged. There is no pulmonary edema. No pneumothorax or pleural effusions. No blastic or lytic bony lesions. IMPRESSION: Normal PA and lateral chest. Dictated by: Dictated on workstation # [id number]
== END 2017-03-05 23:41 | disposition home or self-care (01) ==
LOC: EDUNIT# 22:02 → ER 22:04
DX: T81.4XXA Infection following a procedure, initial encounter (principal); N61.0 Mastitis without abscess; F90.9 Attention-deficit hyperactivity disorder, unspecified type; K21.9 Gastro-esophageal reflux disease without esophagitis; I10 Essential (primary) hypertension; J44.9 Chronic obstructive pulmonary disease, unspecified; Z90.49 Acquired absence of other specified parts of digestive tract; Z87.59 Personal history of other complications of pregnancy, childbirth and the puerperium; Z98.51 Tubal ligation status; Z90.710 Acquired absence of both cervix and uterus; Z87.891 Personal history of nicotine dependence
CPT/HCPCS: 36415; 71020; 80053; 83605; 85025; 87040; 87070; 87205; 93041

== ENCOUNTER 2017-03-23 12:53 | Outpatient (RCR) | payer MEDICARE, MEDICAID ==
[~2017-03-23 12:53] MED LIST changes: +CLIN300C11 PO; +LACT1CAP8 PO
[2017-03-23 13:09] LABS: BASOPHILS # (AUTO) 0.1 10^3/uL (0.0-0.1); BASOPHILS % (AUTO) 1 % (0-10); EOSINOPHILS # (AUTO) 0.6 10^3/uL (0.0-0.3); EOSINOPHILS % (AUTO) 5 % (0-10); HEMATOCRIT 37 % (35-52); HEMOGLOBIN 11.4 G/DL (11.5-16.0); LYMPHOCYTES # (AUTO) 2.8 X 10^3 (1.0-4.0); LYMPHOCYTES % (AUTO) 24 % (12-44); MEAN CORPUSCULAR HEMOGLOBIN 26 PG (25-34); MEAN CORPUSCULAR HGB CONC 31 G/DL (32-36); MEAN CORPUSCULAR VOLUME 85 FL (80-99); MEAN PLATELET VOLUME 8.8 FL (7.4-10.4); MONOCYTES # (AUTO) 0.6 X 10^3 (0.0-1.0); MONOCYTES % (AUTO) 6 % (0-12); NEUTROPHILS # (AUTO) 7.3 X 10^3 (1.8-7.8); NEUTROPHILS % (AUTO) 64 % (42-75); PLATELET COUNT 381 10^3/uL (130-400); RED BLOOD COUNT 4.33 10^6/uL (4.35-5.85); RED CELL DISTRIBUTION WIDTH 13.2 % (10.0-14.5); WHITE BLOOD COUNT 11.4 10^3/uL (4.3-11.0)
[2017-03-23 13:27] LABS: ALBUMIN 3.7 GM/DL (3.2-4.5); BILIRUBIN,TOTAL 0.4 MG/DL (0.1-1.0); CREATININE SERUM 1.02 MG/DL (0.60-1.30); POTASSIUM 4.1 MMOL/L (3.6-5.0); TOTAL PROTEIN 6.9 GM/DL (6.4-8.2)
== END 2017-06-21 | disposition home or self-care (01) ==
LOC: ONC 12:53
PROVIDERS: ATTEND Internal Medicine Hematology & Oncology
DX: C50.412 Malignant neoplasm of upper-outer quadrant of left female breast (principal); J44.9 Chronic obstructive pulmonary disease, unspecified; I10 Essential (primary) hypertension; E78.5 Hyperlipidemia, unspecified; F31.9 Bipolar disorder, unspecified; K21.9 Gastro-esophageal reflux disease without esophagitis; E66.01 Morbid (severe) obesity due to excess calories; Z68.41 Body mass index [BMI] 40.0-44.9, adult; Z79.899 Other long term (current) drug therapy; Z12.31 Encounter for screening mammogram for malignant neoplasm of breast; E89.40 Asymptomatic postprocedural ovarian failure; C50.112 Malignant neoplasm of central portion of left female breast; Z90.722 Acquired absence of ovaries, bilateral; Z79.818 Long term (current) use of other agents affecting estrogen receptors and estrogen levels
CPT/HCPCS: 36415; 80053; 85025; 99213

== ENCOUNTER → 2017-07-05 | Outpatient (CLI) | payer MEDICARE, MEDICAID ==
[~2017-07-05] MED LIST changes: +CATHETER FLUSH 10 ML SYR IV PRN; +IOHEXOL 350 MG/ML 100 ML (OMNIPAQUE 350) VIAL IV ONE; +NS 100 ML (IVPB) BAG IV ONE
--- NOTE | 2017-07-05 10:03 | Diagnostic Imaging Report ---
PROCEDURE: CT abdomen and pelvis with contrast. TECHNIQUE: Multiple contiguous axial images were obtained through the abdomen and pelvis after administration of intravenous contrast. DATE: 07/05/2017. COMPARISON: CT abdomen and pelvis 12/06/2014. INDICATION: 52-year-old female, evaluation for choledocholithiasis. Upper abdominal pain. FINDINGS: There is variant atelectasis and/or scarring in the right lower lobe. The additional visualized portions of the lung bases are clear. The heart is not enlarged. There is no pericardial effusion. The liver is normal in size and contour. There is no identified liver lesion. The main, right, and left portal veins are patent. The gallbladder is unremarkable. There is no identified intrahepatic or extrahepatic bile duct dilation. The main pancreatic duct is not abnormally dilated. Unremarkable appearance of the pancreatic parenchyma. The spleen is not enlarged. The adrenal glands are unremarkable. There is a 5 mm low-attenuation right renal lesion on delayed image 25, too small to characterize. In the left kidney on delayed image 25, there is a 10 mm low-attenuation lesion with internal attenuation of 13 Hounsfield units. This most likely relates to a benign cyst although does not quite meet strict criteria for diagnosis with internal attenuation of 10 Hounsfield units or less. The urinary collecting systems are not distended. There is no identified renal or ureteral stone. The urinary bladder is unremarkable. The uterus is not seen and may be surgically absent. There are sutures in the right lower quadrant. There are no findings to suggest acute appendicitis. There is no free intraperitoneal air. There is no drainable fluid collection. There is no free pelvic fluid. There are atherosclerotic calcifications. There is no identified abnormally enlarged lymph node within the abdomen or pelvis which meets CT size criteria for adenopathy. There are multilevel degenerative changes of the spine. There is no identified acute bony abnormality. IMPRESSION: CT ABDOMEN AND PELVIS. 1. No CT evidence of choledocholithiasis. 2. No identified acute abnormality within the abdomen or pelvis. Dictated by: Dictated on workstation # [id number]
== END ==
LOC: RAD 07:41
PROVIDERS: ATTEND Surgery
DX: K80.50 Calculus of bile duct without cholangitis or cholecystitis without obstruction (principal)
CPT/HCPCS: 74177

== ENCOUNTER 2017-08-07 23:45 | Emergency (ER) | payer MEDICARE, MEDICAID ==
[~2017-08-07] VITALS: Ht 147.3 cm; Wt 95.7 kg
[~2017-08-07 23:45] MED LIST changes: -CATHETER FLUSH 10 ML SYR IV PRN; -IOHEXOL 350 MG/ML 100 ML (OMNIPAQUE 350) VIAL IV ONE; -NS 100 ML (IVPB) BAG IV ONE
--- OUTSIDE RECORDS SUMMARY | 2017-08-07 23:51 | XMS REPORT | Clinical Summary ---
Author Author [facility] Organization [facility] Address Unknown Phone Unavailable Care Team Providers Care Credit Union Teller Name Role Phone Homer Aeljandra MD Unavailable Kirill Murray MD Unavailable Unavailable Anjali Slater RN Unavailable Unavailable Daniela Velasquez RN Unavailable Unavailable Amy Cartagena PCP Source Comments Some departments are not documenting in the electronic medical record. If you do not see the information that you expected, contact Release of Information in the Health Information Management department at [phone] for further assistance in locating additional records.[facility] Allergies Active Allergy Reactions Severity Noted Date [...] Taken Blood Pressure 146/83 05/22/2016 4:00 PM PATTERN WEAVER Pulse 94 05/22/2016 4:00 PM PATTERN WEAVER Temperature 37.2 C (98.9 F) 05/22/2016 4:00 PM PATTERN WEAVER Respiratory Rate 18 12/16/2015 12:12 PM CDT Oxygen Saturation 93% 03/17/2016 5:40 PM PATTERN WEAVER Inhaled Oxygen - - Concentration Weight 90.7 kg (200 lb) 05/22/2016 4:00 PM PATTERN WEAVER Height 147.3 cm (4' 10") 05/22/2016 4:00 PM PATTERN WEAVER Body Mass Index 41.8 05/22/2016 4:00 PM PATTERN WEAVER Plan of Treatment Health Maintenance Due Date Last Done Comments PHYSICAL (COMPREHENSIVE) 06/26/1974 EXAM PERTUSSIS VACCINE 06/26/1978 HIV SCREENING 06/26/1982 TETANUS VACCINE 06/26/1984 CERVICAL CANCER SCREENING 06/26/1997 BREAST CANCER SCREENING 2007 COLORECTAL CANCER 06/26/2017 SCREENING INFLUENZA VACCINE 01/17/2018 Implants Implanted Type Area Business Enterprise Officer Device Expiration Model / Identifier Date Serial / Lot Matrix Tissue [id number] Alloderm Left: LIFECELL 09/15/2017 [id number] / Thick Acellular Dermis Breast [id number] Implanted: Qty: 1 on 12/26/2015 by 20 / Homer Alejandra MD [id number] [employer] Tissue 12.7x10.8cm Breast Left: MENTOR:AESTHETI 06/12/2019 [id number] / 450ml Style 9200 Textured Breast CS PRDT [id number] Implanted: Qty: 1 on 12/26/2015 by 3 / Homer Alejandra MD [id number] Implant Breast 350ml Gel Smooth Left: MENTOR:KELSIEETI 12/22/2018 350 -3501 Memorygel Cohesive I Breast CS PRDT BC / Implanted: Qty: 1 on 03/17/2016 by [id number] Homer Alejandra MD 2 / NA Explanted Type Area Business Enterprise Officer Device Expiration Model / Identifier Date Serial / Lot Tissue [employer] Left: MENTOR NA / Explanted: Qty: 1 on 03/17/2016 Breast [employer] NA / [id number] Results Not on filefrom Last 3 Months
--- OUTSIDE RECORDS SUMMARY | 2017-08-07 23:54 | XMS REPORT ---
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 6315 18 Jun, 2014 [facility] [place] [facility] [address] [id number] [place] [address]- 9008 18 Jun, 2014 [facility] [place] [facility] [address] [id number] [place] [address]- 4480 17 Jun, 2014 [facility] [place] [facility] [address] [id number] [place] [address]- 2391 17 Jun, 2014 [facility] [place] [facility] [address] [id number] [place] [address]- 6558 17 Jun, 2014 [facility] [place] [facility] [address] [id number] [place] [address]- 6681 17 Jun, 2014 [facility] [place] [facility] [address] [id number] [place] [address]- 6685 13 Jun, 2014 [facility] [place] [facility] [address] [id number] [place] [address]- 8262 13 Jun, 2014 [facility] [place] [facility] [address] [id number] [place] [address]- 1515 12 Jun, 2014 [facility] [place] [facility] [address] [id number] [place] [address]- 4861 12 Jun, 2014 [facility] [place] [facility] [address] [id number] [place] [address]- 1165 Jun, [facility] [place] [facility] [address] [id number] [place] [address]- 7856 Jun, [facility] [place] [facility] [address] [id number] [place] [address]- 5299 Jun, [facility] [place] [facility] [address] [id number] [place] [address]- 6589 Jun, [facility] [place] [facility] [address] [id number] [place] [address]- 4385 Jun, [facility] [place] [facility] [address] [id number] [place] [address]- 4086 Jun, [facility] [place] [facility] [address] [facility] [id number] [place] [address]- 5907 Jun, [facility] [place] [facility] [address] [id number] [place] [address]- 3153 Jun, [facility] [place] [facility] [address] [id number] [place] [address]- 7564 Jun, [facility] [place] [facility] [address] [facility] [id number] [place] [address]- 8361 Jun, [facility] [place] [facility] [address] [facility] [id number] [place] [address]- 2180 May, 2014 [facility] [place] [facility] [address] [id number] [place] [address]- 6903 May, 2014 [facility] [place] [facility] [address] [id number] [place] [address]- 8278 May, [facility] [place] [facility] [address] [id number] [place] [address]- 6655 May, 2014 [facility] [place] [facility] [address] [facility] [id number] [place] [address]- 1542 May, 2014 [facility] [place] [facility] [address] [facility] [id number] [place] [address]- 6943 May, 2014 [facility] [place] [facility] [address] [id number] [place] [address]- 4316 May, 2014 [facility] [place] [facility] [address] [id number] [place] [address]- 1416 May, 2014 [facility] [place] [facility] [address] [id number] [place] [address]- 7306 May, 2014 [facility] [place] [facility] [address] [id number] [place] [address]- 8856 May, 2014 [facility] [place] [facility] [address] [id number] [place] [address]- 5969 May, 2014 [facility] [place] [facility] [address] [facility] [id number] [place] [address]- 2796 May, 2014 [facility] [place] [facility] [address] [facility] [id number] [place] [address]- 2757 May, 2014 [facility] [place] [facility] [address] [facility] [id number] [place] [address]- 7806 May, 2014 [facility] [place] [facility] [address] [facility] [id number] [place] [address]- 5364 May, 2014 [facility] [place] [facility] [address] [facility] [id number] [place] [address]- 6913 May, [facility] [place] [facility] [address] [facility] [id number] [place] [address]- 3195 Apr, [facility] [place] [facility] [address] [id number] [place] [address]- 2544 Apr, [facility] [place] [facility] [address] [id number] [place] [address]- 1146 Apr, [facility] [place] [facility] [address] [facility] [id number] [place] [address]- 1773 Apr, [facility] [place] [facility] [address] [facility] [id number] [place] [address]- 7604 Apr, [facility] [place] [facility] [address] [id number] [place] [address]- 5411 Apr, [facility] [place] [facility] [address] [id number] [place] [address]- 4017 Apr, [facility] [place] [facility] [address] [id number] [place] [address]- 9489 Apr, [facility] [place] [facility] [address] [id number] [place] [address]- 7177 Apr, [facility] [place] [facility] [address] [id number] [place] [address]- 1914 Apr, [facility] [place] [facility] [address] [id number] [place] [address]- 2970 Apr, [facility] [place] [facility] [address] [id number] [place] [address]- 8780 Apr, [facility] [place] [facility] [address] [id number] [place] [address]- 0361 Apr, [facility] [place] [facility] [address] [id number] [place] [address]- 2354 Apr, [facility] [place] [facility] [address] [id number] [place] [address]- 7358 Apr, [facility] [place] [facility] [address] [id number] [place] [address]- 6004 Mar, [facility] [place] [facility] [address] [id number] [place] [address]- 1213 Mar, [facility] [place] [facility] [address] [id number] [place] [address]- 4369 Mar, [facility] [place] [facility] [address] [id number] [place] [address]- 2765 Mar, [facility] [place] [facility] [address] [id number] [place] [address]- 5401 Mar, [facility] [place] [facility] [address] [id number] [place] [address]- 1697 22 Mar, 2014 [facility] [place] [facility] [address] [id number] [place] [address]- 8396 15 Mar, 2014 [facility] [place] [facility] [address] [id number] [place] [address]- 4016 15 Mar, 2014 [facility] [place] [facility] [address] [id number] [place] [address]- 6838 15 Mar, 2014 [facility] [place] [facility] [address] [id number] [place] [address]- 0850 15 Mar, 2014 [facility] [place] [facility] [address] [id number] [place] [address]- 8277 15 Mar, 2014 [facility] [place] [facility] [address] [id number] [place] [address]- 9146 15 Mar, 2014 [facility] [place] [facility] [address] [id number] [place] [address]- 4539 12 Mar, 2014 [facility] [place] [facility] [address] [id number] [place] [address]- 2170 Mar, [facility] [place] [facility] [address] [id number] [place] [address]- 4899 Mar, [facility] [place] [facility] [address] [id number] [place] [address]- 8010 Mar, [facility] [place] [facility] [address] [id number] [place] [address]- 9417 Mar, [facility] [place] [facility] [address] [id number] [place] [address]- 4136 Mar, [facility] [place] [facility] [address] [id number] [place] [address]- 1697 Feb, [facility] [place] [facility] [address] [id number] [place] [address]- 0815 Feb, [facility] [place] [facility] [address] [id number] [place] [address]- 8260 Feb, [facility] [place] [facility] [address] [id number] [place] [address]- 5536 Feb, [facility] [place] [facility] [address] [id number] [place] [address]- 3842 Feb, [facility] [place] [facility] [address] [id number] [place] [address]- 3281 Feb, [facility] [place] [facility] [address] [id number] [place] [address]- 4239 Feb, [facility] [place] [facility] [address] [id number] [place] [address]- 5126 Feb, [facility] [place] [facility] [address] [id number] [place] [address]- 0345 Jan, [facility] [place] [facility] [address] [id number] [place] [address]- 7884 Jan, [facility] [place] [facility] [address] [id number] [place] [address]- 7738 Jan, [facility] [place] [facility] [address] [id number] [place] [address]- 6807 Jan, [facility] [place] [facility] [address] [id number] [place] [address]- 8625 Jan, [facility] [place] [facility] [address] [id number] [place] [address]- 9098 Jan, [facility] [place] [facility] [address] [id number] [place] [address]- 3841 Jan, [facility] [place] [facility] [address] [id number] [place] [address]- 5619 Jan, [facility] [place] [facility] [address] [id number] [place] [address]- 5047 Jan, [facility] [place] [facility] [address] [id number] [place] [address]- 5080 Jan, [facility] [place] [facility] [address] [id number] [place] [address] Jan, [facility] [place] [facility] [address] [id number] [place] [address] Jan, [facility] [place] [facility] [address] [id number] [place] [address] Jan, [facility] [place] [facility] [address] [id number] [place] [address] Jan, [facility] [place] [facility] [address] [id number] [place] [address] Jan, [facility] [place] [facility] [address] [id number] [place] [address]- [address] Jan, [facility] [place] [facility] [address] [id number] [place] [address] Jan, [facility] [place] [facility] [address] [id number] [place] [address]- [address] Jan, [facility] [place] [facility] [address] [id number] [place] [address] 29 Dec, 2013 [facility] [place] [facility] [address] [id number] [place] [address]- [address] 29 Dec, 2013 [facility] [place] [facility] [address] [id number] [place] [address]- [address] 26 Dec, 2013 [facility] [place] [facility] [address] [id number] [address] 26 Dec, 2013 [facility] [place] [facility] [address] [id number], [place] [address]- [address] 26 Sep, 2013 [facility] [place] [facility] [address] [id number] [place] [address] 2546 26 Dec, 2013 [facility] [place] [facility] [address] [id number] [place] [address]- [address] 23 Dec, 2013 [facility] [place] [facility] [address] [id number] [place] [address]- [address] 23 Dec, 2013 [facility] [place] [facility] [address] [id number] [place] [address]- [address] 22 Dec, 2013 [facility] [place] [facility] [address] [id number] [place] [address]- [address]166 22 Dec, 2013 [facility] [place] [facility] [address] [id number] [place] [address] 2546 16 Dec, 2013 [facility] [place] [facility] [address] [id number] [place] [address]- [address] 16 Dec, 2013 [facility] [place] [facility] [address] [id number] [place] [address] 2548 15 Dec, 2013 [facility] [place] [facility] [address] [id number] [place] [address]- [address]496 15 Dec, 2013 [facility] [place] [facility] [address] [id number] [place] [address]- [address] 09 Dec, 2013 [facility] [place] [facility] [address] [id number] [place] [address]- [address] Dec, 2013 [facility] [place] [facility] [address] [id number] [place] [address]- 8416 Dec, [facility] [place] [facility] [address] [id number] [place] [address]- [address] Nov, [facility] [place] [facility] [address] [id number] [place] [address]- [address] Nov, [facility] [place] [facility] [address] [id number] [place] [address]- [address]49 Nov, [facility] [place] [facility] [address] [id number] [place] [address]- [address]647 Nov, [facility] [place] [facility] [address] [id number] [place] [address]- 69[address] Nov, [facility] [place] [facility] [address] [id number] [place] [address]- [address] Nov, [facility] [place] [facility] [address] [id number] [place] [address]- [address] Nov, [facility] [place] [facility] [address] [id number] [place] [address]- 68[address] Nov, [facility] [place] [facility] [address] [id number] [place] [address]- [address] Nov, [facility] [place] [facility] [address] [id number] [place] [address]- [address]70 Nov, [facility] [place] [facility] [address] [id number] [place] [address]- [address] Nov, [facility] [place] [facility] [address] [id number] [place] [address] Nov, [facility] [place] [facility] [address] [id number] [place] [address]304 Nov, [facility] [place] [facility] [address] [id number] [place] [address] Nov, [facility] [place] [facility] [address] [id number] [place] [address]- [address] Nov, [facility] [place] [facility] [address] [id number] [place] [address]- [address] Nov, [facility] [place] [facility] [address] [id number] [place] [address]- 9451 Nov, [facility] [place] [facility] [address] [id number] [place] [address]- [address] Nov, [facility] [place] [facility] [address] [id number] [place] [address]- [address]334 Nov, [facility] [place] [facility] [address] [id number] [place] [address]- [address] Nov, [facility] [place] [facility] [address] [id number] [place] [address]- [address] Nov, [facility] [place] [facility] [address] [id number] [place] [address]- 9694 Oct, [facility] [place] [facility] [address] [id number] [place] [address]- 6683 Oct, [facility] [place] [facility] [address] [id number] [place] [address]- [address] Oct, [facility] [place] [facility] [address] [id number] [place] [address]- 39[address] Oct, [facility] [place] [facility] [address] [id number] [place] [address]- 7914 Oct, [facility] [place] [facility] [address] [id number] [place] [address]- 1548 Oct, [facility] [place] [facility] [address] [id number] [place] [address] Oct, [facility] [place] [facility] [address] [id number] [place] [address] 4252 Oct, [facility] [place] [facility] [address] [id number] [place] [address] 6893 Oct, [facility] [place] [facility] [address] [id number] [place] [address]- 8343 Oct, [facility] [place] [facility] [address] [id number] [place] [address]- 3528 Oct, [facility] [place] [facility] [address] [id number] [place] [address]- 0833 Oct, [facility] [place] [facility] [address] [id number] [place] [address]- 4073 Oct, [facility] [place] [facility] [address] [id number] [place] [address]- 2223 Oct, [facility] [place] [facility] [address] [id number] [place] [address]- 3348 Oct, [facility] [place] [facility] [address] [id number] [place] [address]- 1590 Sep, [facility] [place] [facility] [address] [id number] [place] [address]- 0637 Sep, [facility] [place] [facility] [address] [id number] [place] [address]- 3960 25 Sep, 2013 [facility] [place] [facility] [address] [id number] [place] [address]- 0373 Sep, [facility] [place] [facility] [address] [id number] [place] [address]- 3919 Sep, [facility] [place] [facility] [address] [id number] [place] [address]- 1369 Sep, [facility] [place] [facility] [address] [id number] [place] [address]- 4555 18 Sep, 2013 [facility] [place] [facility] [address] [id number] [place] [address]- 8357 18 Sep, 2013 [facility] [place] [facility] [address] [id number] [place] [address]- 3980 17 Sep, 2013 [facility] [place] [facility] [address] [id number] [place] [address]- 2302 16 Sep, 2013 [facility] [place] [facility] [address] [id number] [place] [address]- 3385 16 Sep, 2013 [facility] [place] [facility] [address] [id number] [place] [address]- 3815 Sep, [facility] [place] [facility] [address] [id number] [place] [address]- 5400 16 Sep, 2013 [facility] [place] [facility] [address] [id number] [place] [address]- 3206 Sep, [facility] [place] [facility] [address] [id number] [place] [address]- 3146 Sep, [facility] [place] [facility] [address] [id number] [place] [address]- 1704 09 Sep, 2013 [facility] [place] [facility] [address] [id number] [place] [address]- 0345 09 Sep, 2013 [facility] [place] [facility] [address] [id number] [place] [address]- 7774 Sep, [facility] [place] [facility] [address] [id number] [place] [address]- 1787 Sep, [facility] [place] [facility] [address] [id number] [place] [address]- 0425 Sep, [facility] [place] [facility] [address] [id number] [place] [address]- 9411 Sep, [facility] [place] [facility] [address] [id number] [place] [address]- 0554 Sep, [facility] [place] [facility] [address] [id number] [place] [address]- 4443 August, [facility] [place] [facility] [address] [id number] [place] [address]- 6310 August, [facility] [place] [facility] [address] [id number] [place] [address]- 5033 August, [facility] [place] [facility] [address] [id number] [place] [address]- 1221 August, [facility] [place] [facility] [address] [id number] [place] [address]- 4511 August, [facility] [place] [facility] [address] [id number] [place] [address]- 2860 August, [facility] [place] [facility] [address] [id number] [place] [address]- 2667 August, [facility] [place] [facility] [address] [id number] [place] [address]- 7246 August, [facility] [place] [facility] [address] [id number] [place] [address]- 6586 August, [facility] [place] [facility] [address] [id number] [place] [address]- 2566 August, [facility] [place] [facility] [address] [id number] [place] [address]- 3530 August, [facility] [place] [facility] [address] [id number] [place] [address]- 9810 August, [facility] [place] [facility] [address] [id number] [place] [address]- 5439 August, [facility] [place] [facility] [address] [id number] [place] [address]- 5799 August, [facility] [place] [facility] [address] [id number] [place] [address]- 2105 August, [facility] [place] [facility] [address] [id number] [place] [address]- 8777 August, [facility] [place] [facility] [address] [id number] [place] [address]- 2765 August, [facility] [place] [facility] [address] [id number] [place] [address]- 2829 August, [facility] [place] [facility] [address] [id number] [place] [address]- 0091 Jul, [facility] [place] [facility] [address] [id number] [place] [address]- 3261 Jul, [facility] [place] [facility] [address] [id number] [place] [address]- 6493 Jul, [facility] [place] [facility] [address] [id number] [place] [address]- 1262 Jul, [facility] [place] [facility] [address] [id number] [place] [address]- 1475 Jul, [facility] [place] [facility] [address] [id number] [place] [address]- 1159 Jul, [facility] [place] [facility] [address] [id number] [place] [address]- 6800 Jul, [facility] [place] [facility] [address] [id number] [place] [address]- 1115 Jul, [facility] [place] [facility] [address] [id number] [place] [address]- 8241 Jul, [facility] [place] [facility] [address] [id number] [place] [address]- 8942 21 Jul, 2013 [facility] [place] [facility] [address] [id number] [place] [address]- 0802 21 Jul, 2013 [facility] [place] [facility] [address] [id number] [place] [address]- 5427 18 Jul, 2013 [facility] [place] [facility] [address] [id number] [place] [address]- 0548 18 Jul, 2013 [facility] [place] [facility] [address] [id number] [place] [address]- 0438 17 Jul, 2013 [facility] [place] [facility] [address] [id number] [place] [address]- 5001 17 Jul, 2013 [facility] [place] [facility] [address] [id number] [place] [address]- 9609 17 Jul, 2013 [facility] [place] [facility] [address] [id number] [place] [address]- 7693 17 Jul, 2013 [facility] [place] [facility] [address] [id number] [place] [address]- 3670 16 Jul, 2013 [facility] [place] [facility] [address] [id number] [place] [address]- 6523 16 Jul, 2013 [facility] [place] [facility] [address] [id number] [place] [address]- 7352 15 Jul, 2013 [facility] [place] [facility] [address] [id number] [place] [address]- 1464 15 Jul, 2013 [facility] [place] [facility] [address] [id number] [place] [address]- 3618 14 Jul, 2013 [facility] [place] [facility] [address] [id number] [place] [address]- 1164 14 Jul, 2013 [facility] [place] [facility] [address] [id number] [place] [address]- 7308 12 Jul, 2013 [facility] [place] [facility] [address] [id number] [place] [address]- 7668 12 Jul, 2013 [facility] [place] [facility] [address] [id number] [place] [address]- 5648 Jul, [facility] [place] [facility] [address] [id number] [place] [address]- 0375 Jul, [facility] [place] [facility] [address] [id number] [place] [address]- 8175 Jul, [facility] [place] [facility] [address] [id number] [place] [address]- 3492 Jul, [facility] [place] [facility] [address] [id number] [place] [address]- 5680 17 Jun, 2013 [facility] [place] [facility] [address] [id number] [place] [address]- 3542 17 Jun, 2013 [facility] [place] [facility] [address] [id number] [place] [address]- 2645 17 Jun, 2013 [facility] [place] [facility] [address] [id number] [place] [address]- 3727 17 Jun, 2013 [facility] [place] [facility] [address] [id number] [place] [address]- 2565 13 Jun, 2013 [facility] [place] [facility] [address] [id number] [place] [address]- 9380 13 Jun, 2013 [facility] [place] [facility] [address] [id number] [place] [address]- 2881 11 Jun, 2013 [facility] [place] [facility] [address] [id number] [place] [address]- 7419 11 Jun, 2013 [facility] [place] [facility] [address] [id number] [place] [address]- 2232 10 Jun, 2013 [facility] [place] [facility] [address] [id number] [place] [address]- 4329 10 Jun, 2013 [facility] [place] [facility] [address] [id number] [place] [address]- 1864 04 Jun, 2013 [facility] [place] [facility] [address] [id number] [place] [address]- 1704 Jun, [facility] [place] [facility] [address] [id number] [place] [address]- 5026 May, [facility] [place] [facility] [address] [id number] [place] [address]- 6976 May, [facility] [place] [facility] [address] [id number] [place] [address]- 2940 May, [facility] [place] [facility] [address] [id number] [place] [address]- 3947 May, [facility] [place] [facility] [address] [id number] [place] [address]- 7441 May, [facility] [place] [facility] [address] [id number] [place] [address]- 8070 May, [facility] [place] [facility] [address] [id number] [place] [address]- 2713 May, [facility] [place] [facility] [address] [id number] [place] [address]- 2242 May, [facility] [place] [facility] [address] [facility] [id number] [place] [address]- 3318 May, [facility] [place] [facility] [address] [id number] [place] [address]- 4828 May, [facility] [place] [facility] [address] [id number] [place] [address]- 0282 Apr, [facility] [place] [facility] [address] [id number] [place] [address]- 4581 Apr, [facility] [place] [facility] [address] [id number] [place] [address]- 4668 Apr, [facility] [place] [facility] [address] [id number] [place] [address]- 7572 Apr, [facility] [place] [facility] [address] [id number] [place] [address]- 2546 Apr, [facility] [place] [facility] [address] [id number] [place] [address]- 1904 Apr, [facility] [place] [facility] [address] [id number] [place] [address]- 7746 Apr, [facility] [place] [facility] [address] [id number] [place] [address]- 1854 Apr, [facility] [place] [facility] [address] [id number] [place] [address]- 6946 Apr, [facility] [place] [facility] [address] [id number] [place] [address]- 0326 Apr, [facility] [place] [facility] [address] [id number] [place] [address]- 5777 Mar, [facility] [place] [facility] [address] [id number] [place] [address]- 1235 Mar, [facility] [place] [facility] [address] [id number] [place] [address]- 4314 Mar, [facility] [place] [facility] [address] [id number] [place] [address]- 9369 Mar, [facility] [place] [facility] [address] [id number] [place] [address]- 0477 Mar, [facility] [place] [facility] [address] [id number] [place] [address]- 5788 Mar, [facility] [place] [facility] [address] [id number] [place] [address]- 1247 Feb, [facility] [place] [facility] [address] [id number] [place] [address]- 9252 Feb, [facility] [place] [facility] [address] [id number] [place] [address]- 1888 Feb, [facility] [place] [facility] [address] [id number] [place] [address]- 9496 Jan, [facility] [place] [facility] [address] [id number] [place] [address]- 6798 30 Jan, 2013 [facility] [address] [id number] [place] [address]- 8412 Jan, [facility] [place] [facility] [address] [id number] [place] [address]- 0527 Jan, [facility] [address] [id number] [place] [address]- 3827 Jan, [facility] [place] [facility] [address] [id number] [place] [address]- 3152 15 Jan, 2013 [facility] [address] [id number] [place] [address]- 4737 Jan, [facility] [place] [facility] [address] [id number] [place] [address]- 0727 Jan, [facility] [place] [facility] [address] [id number] [place] [address]- 1392 Jan, [facility] [address] [id number] [place] [address]- 8707 Jan, [facility] [place] [facility] [address] [id number] [place] [address]- 5485 30 Dec, 2012 [facility] [place] [facility] [address] [id number] [place] [address]- 7853 25 Dec, 2012 [facility] [place] [facility] [address] [id number] [place] [address]- 2548 11 Dec, 2012 [facility] [place] [facility] [address] [id number] [place] [address]- 2548 09 Dec, 2012 [facility] [place] [facility] [address] [id number] [place] [address]- 2786 05 Dec, 2012 [facility] [place] [facility] [address] [id number] [place] [address]- 1671 04 Dec, 2012 [facility] [place] [facility] [address] [id number] [place] [address]- 2720 Nov, [facility] [place] [facility] [address]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
--- OUTSIDE RECORDS SUMMARY | 2017-08-07 23:57 | XMS REPORT ---
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 [place] [facility] [address] [id number] [place] [address]- 5576 10 Jun, 2014 [facility] [place] [facility] [address] [id number] [place] [address]- 5630 Jun, [facility] [place] [facility] [address] [id number] [place] [address]- 2891 Jun, [facility] [place] [facility] [address] [id number] [place] [address]- 7001 Jun, [facility] [place] [facility] [address] [id number] [place] [address]- 2234 Jun, 2014 [facility] [place] [facility] [address] [id number] [place] [address]- 5701 Jun, 2014 [facility] [place] [facility] [address] [id number] [place] [address]- 6773 Jun, [facility] [place] [facility] [address] [facility] [id number] [place] [address]- 6042 Jun, [facility] [place] [facility] [address] [facility] [id number] [place] [address]- 4611 Jun, [facility] [place] [facility] [address] [facility] [id number] [place] [address]- 1218 Jun, [facility] [place] [facility] [address] [facility] [id number] [place] [address]- 3214 May, 2014 [facility] [place] [facility] [address] [facility] [id number] [place] [address]- 5657 May, 2014 [facility] [place] [facility] [address] [facility] [id number] [place] [address]- 9070 May, 2014 [facility] [place] [facility] [address] [id number] [place] [address]- 1093 May, [facility] [place] [facility] [address] [id number] [place] [address]- 2821 May, 2014 [facility] [place] [facility] [address] [facility] [id number] [place] [address]- 8117 May, 2014 [facility] [place] [facility] [address] [facility] [id number] [address]- 9469 May, 2014 [facility] [place] [facility] [address] [id number] [place] [address]- 8506 May, 2014 [facility] [place] [facility] [address] [id number] [place] [address]- 1766 May, 2014 [facility] [place] [facility] [address] [facility] [id number] [place] [address]- 8076 May, 2014 [facility] [place] [facility] [address] [id number] [place] [address]- 9743 May, 2014 [facility] [place] [facility] [address] [id number] [place] [address]- 0718 May, 2014 [facility] [place] [facility] [address] [facility] [id number] [place] [address]- 1821 May, 2014 [facility] [place] [facility] [address] [facility] [id number] [place] [address]- 7660 May, 2014 [facility] [place] [facility] [address] [facility] [id number] [place] [address]- 0828 May, [facility] [place] [facility] [id number] [place] [address]- 0049 May, [facility] [place] [facility] [address] [facility] [id number] [place] [address]- 1183 Apr, [facility] [place] [facility] [address] [facility] [id number] [place] [address]- 8611 Apr, [facility] [place] [facility] [address] [id number] [place] [address]- 2549 Apr, [facility] [place] [facility] [address] [facility] [id number] [place] [address]- 2488 Apr, [facility] [place] [facility] [address] [facility] [id number] [place] [address]- 6752 Apr, [facility] [place] [facility] [address] [facility] [id number] [place] [address]- 0254 Apr, [facility] [place] [facility] [address] [id number] [place] [address]- 2882 Apr, [facility] [place] [facility] [address] [id number] [place] [address]- 5230 Apr, [facility] [place] [facility] [address] [id number] [place] [address]- 6805 Apr, [facility] [place] [facility] [address] [id number] [place] [address]- 2930 Apr, [facility] [place] [facility] [address] [id number] [place] [address]- 3191 Apr, [facility] [place] [facility] [address] [id number] [place] [address]- 1248 Apr, [facility] [place] [facility] [address] [id number] [place] [address]- 7167 Apr, [facility] [place] [facility] [address] [id number] [place] [address]- 2195 Apr, [facility] [place] [facility] [address] [id number] [place] [address]- 4308 Apr, [facility] [place] [facility] [address] [id number] [place] [address]- 1783 Mar, [facility] [place] [facility] [address] [id number] [place] [address]- 4146 Mar, [facility] [place] [facility] [address] [id number] [place] [address]- 4493 Mar, [facility] [place] [facility] [address] [id number] [place] [address]- 4278 Mar, [facility] [place] [facility] [address] [id number] [place] [address]- 8041 Mar, [facility] [place] [facility] [address] [id number] [place] [address]- 1469 Mar, [facility] [place] [facility] [address] [id number] [place] [address]- 8103 15 Mar, 2014 [facility] [place] [facility] [address] [id number] [place] [address]- 6946 15 Mar, 2014 [facility] [place] [facility] [address] [id number] [place] [address]- 8186 15 Mar, 2014 [facility] [place] [facility] [address] [id number] [place] [address]- 5285 15 Mar, 2014 [facility] [place] [facility] [address] [id number] [place] [address]- 1209 15 Mar, 2014 [facility] [place] [facility] [address] [id number] [place] [address]- 3969 15 Mar, 2014 [facility] [place] [facility] [address] [id number] [place] [address]- 7164 12 Mar, 2014 [facility] [place] [facility] [address] [id number] [place] [address]- 6556 12 Mar, 2014 [facility] [place] [facility] [address] [id number] [place] [address]- 2549 Mar, [facility] [place] [facility] [address] [id number] [place] [address]- 6600 Mar, [facility] [place] [facility] [address] [id number] [place] [address]- 1429 Mar, [facility] [place] [facility] [address] [id number] [place] [address]- 4899 Mar, [facility] [place] [facility] [address] [id number] [place] [address]- 2267 Feb, [facility] [place] [facility] [address] [id number] [place] [address]- 0304 Feb, [facility] [place] [facility] [address] [id number] [place] [address]- 6165 Feb, [facility] [place] [facility] [address] [id number] [place] [address]- 1331 Feb, [facility] [place] [facility] [address] [id number] [place] [address]- 9976 Feb, [facility] [place] [facility] [address] [id number] [place] [address]- 1494 Feb, [facility] [place] [facility] [address] [id number] [place] [address]- 6163 Feb, [facility] [place] [facility] [address] [id number] [place] [address]- 6105 Feb, [facility] [place] [facility] [address] [id number] [place] [address]- 7420 Jan, [facility] [place] [facility] [address] [id number] [place] [address]- 5752 Jan, [facility] [place] [facility] [address] [id number] [place] [address]- 3821 Jan, [facility] [place] [facility] [address] [id number] [place] [address]- 3985 Jan, [facility] [place] [facility] [address] [id number] [place] [address]- 5812 Jan, [facility] [place] [facility] [address] [id number] [place] [address]- 5461 Jan, [facility] [place] [facility] [address] [id number] [place] [address]- 5234 Jan, [facility] [place] [facility] [address] [id number] [place] [address]- 1091 Jan, [facility] [place] [facility] [address] [id number] [place] [address]- 9855 Jan, [facility] [place] [facility] [address] [id number] [place] [address]- 8175 Jan, [facility] [place] [facility] [address] [id number] [place] [address]- 9334 Jan, [facility] [place] [facility] [address] [id number] [place] [address]- 4238 Jan, [facility] [place] [facility] [address] [id number] [place] [address]- 2160 Jan, [facility] [place] [facility] [address] [id number] [place] [address]- 5037 Jan, [facility] [place] [facility] [address] [id number] [place] [address]- 2690 16 Jan, 2014 [facility] [place] [facility] [address] [id number] [place] [address]- 0565 16 Jan, 2014 [facility] [place] [facility] [address] [id number] [place] [address]- 8663 Jan, [facility] [place] [facility] [address] [id number] [place] [address]- 4560 Jan, [facility] [place] [facility] [address] [id number] [place] [address]- 9492 29 Dec, 2013 [facility] [place] [facility] [address] [id number] [place] [address]- 1445 29 Dec, 2013 [facility] [place] [facility] [address] [id number] [place] [address]- 8267 26 Dec, 2013 [facility] [place] [facility] [address] [id number] [place] [address]- 9927 26 Dec, 2013 [facility] [place] [facility] [address] [id number], [place] [address]- 2855 26 Dec, 2013 [facility] [place] [facility] [address] [id number], [place] [address]- 2543 26 Sep, 2013 [facility] [place] [facility] [address] [id number] [place] [address] 2549 23 Dec, 2013 [facility] [place] [facility] [address] [id number] [place] [address] 23 Dec, 2013 [facility] [place] [facility] [address] [id number] [place] [address]44 22 Dec, 2013 [facility] [place] [facility] [address] [id number] [place] [address] 22 Dec, 2013 [facility] [place] [facility] [address] [id number] [place] [address] 2546 16 Dec, 2013 [facility] [place] [facility] [address] [id number] [place] [address] 2546 16 Dec, 2013 [facility] [place] [facility] [address] [id number] [place] [address] 2546 15 Dec, 2013 [facility] [place] [facility] [address] [id number] [place] [address] 2543 15 Dec, 2013 [facility] [place] [facility] [address] [id number] [place] [address]- [address] 09 Dec, 2013 [facility] [place] [facility] [address] [id number] [place] [address]- [address] Dec, 2013 [facility] [place] [facility] [address] [id number] [place] [address]- [address]85 Dec, 2013 [facility] [place] [facility] [address] [id number] [place] [address]- [address]68 Nov, [facility] [place] [facility] [address] [id number] [place] [address] Nov, [facility] [place] [facility] [address] [id number] [place] [address]- [address] Nov, [facility] [place] [facility] [address] [id number] [place] [address]- [address] Nov, [facility] [place] [facility] [address] [id number] [place] [address]- [address] Nov, [facility] [place] [facility] [address] [id number] [place] [address]- [address]321 Nov, [facility] [place] [facility] [address] [id number] [place] [address]- [address]686 Nov, [facility] [place] [facility] [address] [id number] [place] [address] Nov, [facility] [place] [facility] [address] [id number] [place] [address] Nov, [facility] [place] [facility] [address] [id number] [place] [address]- 77[address] Nov, [facility] [place] [facility] [address] [id number] [place] [address] 44[address] Nov, [facility] [place] [facility] [address] [id number] [place] [address]- [address]135 Nov, [facility] [place] [facility] [address] [id number] [place] [address]- [address] Nov, [facility] [place] [facility] [address] [id number] [place] [address]- [address]256 Nov, [facility] [place] [facility] [address] [id number] [place] [address]405 Nov, [facility] [place] [facility] [address] [id number] [place] [address]- [address] Nov, [facility] [place] [facility] [address] [id number] [place] [address] Nov, [facility] [place] [facility] [address] [id number] [place] [address] 1197 Nov, [facility] [place] [facility] [address] [id number] [place] [address]- [address]855 Nov, [facility] [place] [facility] [address] [id number] [place] [address]- 8640 Nov, [facility] [place] [facility] [address] [id number] [place] [address] 2094 Nov, [facility] [place] [facility] [address] [id number] [place] [address] Oct, [facility] [place] [facility] [address] [id number] [place] [address]- [address]234 Oct, [facility] [place] [facility] [address] [id number] [place] [address]- [address]592 Oct, [facility] [place] [facility] [address] [id number] [place] [address]- 3464 Oct, [facility] [place] [facility] [address] [id number] [place] [address]861 Oct, [facility] [place] [facility] [address] [id number] [place] [address]- 8098 Oct, [facility] [place] [facility] [address] [id number] [place] [address]- [address] Oct, [facility] [place] [facility] [address] [id number] [place] [address]- 9614 Oct, [facility] [place] [facility] [address] [id number] [place] [address]- 1471 Oct, [facility] [place] [facility] [address] [id number] [place] [address]- 2389 Oct, [facility] [place] [facility] [address] [id number] [place] [address]- 1514 Oct, [facility] [place] [facility] [address] [id number] [place] [address]- 4368 Oct, [facility] [place] [facility] [address] [id number] [place] [address]- 6438 Oct, [facility] [place] [facility] [address] [id number] [place] [address]- [address]252 Oct, [facility] [place] [facility] [address] [id number] [place] [address]- 4693 Oct, [facility] [place] [facility] [address] [id number] [place] [address]- 9532 Sep, [facility] [place] [facility] [address] [id number] [place] [address]- 4281 Sep, [facility] [place] [facility] [address] [id number] [place] [address]- 9804 Sep, [facility] [place] [facility] [address] [id number] [place] [address]- [address] 25 Sep, 2013 [facility] [place] [facility] [address] [id number] [place] [address]- 3146 Sep, [facility] [place] [facility] [address] [id number] [place] [address]- 3737 20 Sep, 2013 [facility] [place] [facility] [address] [address] [id number] [place] [address]68 18 Sep, 2013 [facility] [place] [facility] [address] [id number] [place] [address]70 18 Sep, 2013 [facility] [place] [facility] [address] [id number] [place] [address] 7229 17 Sep, 2013 [facility] [place] [facility] [address] [id number] [place] [address]- 7505 16 Sep, 2013 [facility] [place] [facility] [address] [id number] [place] [address]- 7130 16 Sep, 2013 [facility] [place] [facility] [address] [id number] [place] [address]- 7133 16 Sep, 2013 [facility] [place] [facility] [address] [id number] [place] [address] 3860 Sep, [facility] [place] [facility] [address] [id number] [place] [address] 2690 Sep, [facility] [place] [facility] [address] [id number] [place] [address] 4996 Sep, [facility] [place] [facility] [address] [id number] [place] [address]- 5303 09 Sep, 2013 [facility] [place] [facility] [address] [id number] [place] [address]- 7453 09 Sep, 2013 [facility] [place] [facility] [address] [id number] [place] [address]- 7370 04 Sep, 2013 [facility] [place] [facility] [address] [id number] [place] [address]- 8451 Sep, [facility] [place] [facility] [address] [id number] [place] [address]- 2204 Sep, [facility] [place] [facility] [address] [id number] [place] [address]- 2250 Sep, [facility] [place] [facility] [address] [id number] [place] [address]- 9099 Sep, [facility] [place] [facility] [address] [id number] [place] [address]- 9828 August, [facility] [place] [facility] [address] [id number] [place] [address]- 0015 August, [facility] [place] [facility] [address] [id number] [place] [address]- 3866 August, [facility] [place] [facility] [address] [id number] [place] [address]- 3946 August, [facility] [place] [facility] [address] [id number] [place] [address]- 0135 August, [facility] [place] [facility] [address] [id number] [place] [address]- 2147 August, [facility] [place] [facility] [address] [id number] [place] [address]- 7939 August, [facility] [place] [facility] [address] [id number] [place] [address]- 8667 August, [facility] [place] [facility] [address] [id number] [place] [address]- 7697 August, [facility] [place] [facility] [address] [id number] [place] [address]- 7018 August, [facility] [place] [facility] [address] [id number] [place] [address]- 6349 August, [facility] [place] [facility] [address] [id number] [place] [address]- 8713 August, [facility] [place] [facility] [address] [id number] [place] [address]- 5378 August, [facility] [place] [facility] [address] [id number] [place] [address]- 5785 August, [facility] [place] [facility] [address] [id number] [place] [address]- 7384 August, [facility] [place] [facility] [address] [id number] [place] [address]- 6214 August, [facility] [place] [facility] [address] [id number] [place] [address]- 2207 August, [facility] [place] [facility] [address] [id number] [place] [address]- 8292 August, [facility] [place] [facility] [address] [id number] [place] [address]- 2806 Jul, [facility] [place] [facility] [address] [id number] [place] [address]- 6161 Jul, [facility] [place] [facility] [address] [id number] [place] [address]- 0185 Jul, [facility] [place] [facility] [address] [id number] [place] [address]- 7359 Jul, [facility] [place] [facility] [address] [id number] [place] [address]- 7152 Jul, [facility] [place] [facility] [address] [id number] [place] [address]- 3209 Jul, [facility] [place] [facility] [address] [id number] [place] [address]- 7084 Jul, [facility] [place] [facility] [address] [id number] [place] [address]- 8654 Jul, [facility] [place] [facility] [address] [id number] [place] [address]- 2920 Jul, [facility] [place] [facility] [address] [id number] [place] [address]- 7783 Jul, [facility] [place] [facility] [address] [id number] [place] [address]- 4310 21 Jul, 2013 [facility] [place] [facility] [address] [id number] [place] [address]- 4629 18 Jul, 2013 [facility] [place] [facility] [address] [id number] [place] [address]- 1524 18 Jul, 2013 [facility] [place] [facility] [address] [id number] [place] [address]- 4412 17 Jul, 2013 [facility] [place] [facility] [address] [id number] [place] [address]- 5329 17 Jul, 2013 [facility] [place] [facility] [address] [id number] [place] [address]- 3531 17 Jul, 2013 [facility] [place] [facility] [address] [id number] [place] [address]- 7102 17 Jul, 2013 [facility] [place] [facility] [address] [id number] [place] [address]- 1616 16 Jul, 2013 [facility] [place] [facility] [address] [id number] [place] [address]- 2718 16 Jul, 2013 [facility] [place] [facility] [address] [id number] [place] [address]- 4487 15 Jul, 2013 [facility] [place] [facility] [address] [id number] [place] [address]- 2943 15 Jul, 2013 [facility] [place] [facility] [address] [id number] [place] [address]- 7658 14 Jul, 2013 [facility] [place] [facility] [address] [id number] [place] [address]- 3548 14 Jul, 2013 [facility] [place] [facility] [address] [id number] [place] [address]- 3359 12 Jul, 2013 [facility] [place] [facility] [address] [id number] [place] [address]- 0611 12 Jul, 2013 [facility] [place] [facility] [address] [id number] [place] [address]- 4867 Jul, [facility] [place] [facility] [address] [id number] [place] [address]- 4514 Jul, [facility] [place] [facility] [address] [id number] [place] [address]- 0026 Jul, [facility] [place] [facility] [address] [id number] [place] [address]- 2611 Jul, [facility] [place] [facility] [address] [id number] [place] [address]- 0833 Jun, [facility] [place] [facility] [address] [id number] [place] [address]- 5296 17 Jun, 2013 [facility] [place] [facility] [address] [id number] [place] [address]- 3763 17 Jun, 2013 [facility] [place] [facility] [address] [id number] [place] [address]- 3763 17 Jun, 2013 [facility] [place] [facility] [address] [id number] [place] [address]- 2150 Jun, [facility] [place] [facility] [address] [id number] [place] [address]- 0565 13 Jun, 2013 [facility] [place] [facility] [address] [id number] [place] [address]- 1831 11 Jun, 2013 [facility] [place] [facility] [address] [id number] [place] [address]- 9246 11 Jun, 2013 [facility] [place] [facility] [address] [id number] [place] [address]- 6395 10 Jun, 2013 [facility] [place] [facility] [address] [id number] [place] [address]- 1629 10 Jun, 2013 [facility] [place] [facility] [address] [id number] [place] [address]- 8079 04 Jun, 2013 [facility] [place] [facility] [address] [id number] [place] [address]- 7014 04 Jun, 2013 [facility] [place] [facility] [address] [id number] [place] [address]- 1388 May, [facility] [place] [facility] [address] [id number] [place] [address]- 7272 May, [facility] [place] [facility] [address] [id number] [place] [address]- 4646 May, [facility] [place] [facility] [address] [id number] [place] [address]- 8583 May, [facility] [place] [facility] [address] [id number] [place] [address]- 4038 May, [facility] [place] [facility] [address] [id number] [place] [address]- 5819 May, [facility] [place] [facility] [address] [id number] [place] [address]- 0167 May, [facility] [place] [facility] [address] [id number] [place] [address]- 7849 May, [facility] [place] [facility] [address] [id number] [place] [address]- 1392 May, [facility] [place] [facility] [address] [facility] [id number] [place] [address]- 0315 May, [facility] [place] [facility] [address] [facility] [id number] [place] [address]- 6836 Apr, [facility] [place] [facility] [address] [id number] [place] [address]- 9846 Apr, [facility] [place] [facility] [address] [id number] [place] [address]- 3711 Apr, [facility] [place] [facility] [address] [id number] [place] [address]- 1860 Apr, [facility] [place] [facility] [address] [id number] [place] [address]- 1989 Apr, [facility] [place] [facility] [address] [id number] [place] [address]- 2546 Apr, [facility] [place] [facility] [address] [id number] [place] [address]- 7050 Apr, [facility] [place] [facility] [address] [id number] [place] [address]- 0205 Apr, [facility] [place] [facility] [address] [id number] [place] [address]- 0037 Apr, [facility] [place] [facility] [address] [id number] [place] [address]- 9128 Apr, [facility] [place] [facility] [address] [id number] [place] [address]- 6905 Mar, [facility] [place] [facility] [address] [id number] [place] [address]- 9413 Mar, [facility] [place] [facility] [address] [id number] [place] [address]- 8451 Mar, [facility] [place] [facility] [address] [id number] [place] [address]- 5741 Mar, [facility] [place] [facility] [address] [id number] [place] [address]- 9651 Mar, [facility] [place] [facility] [address] [id number] [place] [address]- 1689 Mar, [facility] [place] [facility] [address] [id number] [place] [address]- 9423 Feb, [facility] [place] [facility] [address] [id number] [place] [address]- 0566 Feb, [facility] [place] [facility] [address] [id number] [place] [address]- 4389 Feb, [facility] [place] [facility] [address] [id number] [place] [address]- 6023 Jan, [facility] [place] [facility] [address] [id number] [place] [address]- 4783 Jan, [facility] [place] [facility] [address] [id number] [place] [address]- 8359 Jan, [facility] [address] [id number] [place] [address]- 9701 Jan, [facility] [place] [facility] [address] [id number] [place] [address]- 5906 Jan, [facility] [address] [id number] [place] [address]- 8278 Jan, [facility] [place] [facility] [address] [id number] [place] [address]- 5293 Jan, [facility] [address] [id number] [place] Jan, [facility] [place] [facility] [address] [id number] [place] [address]- 0527 Jan, [facility] [place] [facility] [address] [id number] [place] [address]- 1341 Jan, [facility] [address] [id number] [place] [address]- 4760 30 Dec, 2012 [facility] [place] [facility] [address] [id number] [place] [address]- 5748 25 Dec, 2012 [facility] [place] [facility] [address] [id number] [place] [address]- 8933 Dec, [facility] [place] [facility] [address] [id number] [place] [address] 2542 09 Dec, 2012 [facility] [place] [facility] [address] [id number] [place] [address]- 2541 05 Dec, 2012 [facility] [place] [facility] [address] [id number] [place] [address]- 9920 04 Dec, 2012 [facility] [place] [facility] [address] [id number] [place] [address]- 0450 Nov, [facility] [place] [facility] [address] [id number] [place] [address]909 Nov, [facility] [place] [facility] [address] [id number] [place] [address]- 2529 Nov, [facility] [place] [facility] [address] [id number] [place] [address]- 8960 Nov, [facility] [place] [facility] [address] [id number] [place] [address]- 1854 Nov, [facility] [place] [facility] [address] [id number] [place] [address]- 9194 Nov, [facility] [place] [facility] [address] [id number] [place] [address]- 0670 Nov, [facility] [place] [facility] [address] [id number] [place] [address]- 5714 Nov, [facility] [place] [facility] [address] [id number] [place] [address]- 9148 Nov, [facility] [place] [facility] [address] [id number] [place] [address]- 0769 Nov, [facility] [place] [facility] [address] [id number] [place] [address]- 3199 Nov, [facility] [place] [facility] [address] [id number] [place] [address]- 4861 Nov, [facility] [place] [facility] [address] [id number] [place] [address]- 3527 Oct, [facility] [place] [facility] [address] [id number], [place] [address]- 5993 Oct, [facility] [place] [facility] [address] [id number] [place] [address]- 0372 Oct, [facility] [place] [facility] [address] [id number] [place] [address]- 7513 Sep, [facility] [place] [facility] [address] [id number] [place] [address]- 9220 Sep, [facility] [place] [facility] [address] [id number], [place] [address]- 6701 Sep, [facility] [address] [id number] [place] [address]- 8998 August, [facility] [address] [id number] [place] [address]- 9573 August, [facility] [address] [id number] [place] [address]- 5059 August, [facility] [address] [id number] [place] [address]- 4342 August, [facility] [address] [id number] [place] [address]- 0505 August, [facility] [address] [id number] [place] [address]- 5939 August, [facility] [address] [id number] [place] [address]- 2740 Jul, [facility] [address] [id number] [place] [address]- 5317 Jul, [facility] [address] [id number] [place] [address]- 9051 Jul, [facility] [address] [id number] [place] [address]- 9678 Jul, [facility] [address] [id number] [place] [address]- 4586 Jul, [facility] [address] [id number] [place] [address]- 8138 Jul, [facility] [address] [id number] [place] [address]- 2075 Jun, [facility] [address] [id number] [place] [address]- 9982 Jun, [facility] [address] [id number] [place] [address]- 2301 Jun, [facility] [address] [id number] [place] [address]- 6316 14 Jun, 2012 [facility] [address] [id number] [place] [address]- 3564 04 Jun, 2012 [facility] [place] [facility] [address] [id number] [place] [address]- 0816 13 May, 2012 [facility] [place] [facility] [address] [id number] [place] [address]- 5466 12 May, 2012 [facility] [place] [facility] [address] [id number] [place] [address]- 5302 May, [facility] [place] [facility] [address] [id number] [place] [address]- 7653 08 May, 2012 [facility] [address] [id number] [place] [address]- 2359 Apr, [facility] [address] [id number] [place] [address]- 3178 Apr, [facility] [place] [facility] [address] [id number] [place] [address]- 2334 Apr, [facility] [address] [id number] [place] [address]- 1117 Mar, [facility] [place] [facility] [address] [id number] [place] [address]- 3934 Mar, [facility] [place] [facility] [address] [id number] [place] [address]- 3719 Mar, [facility] [place] [facility] [address] [id number] [place] [address]- 4629 Mar, [facility] [place] [facility] [address] [id number] [place] [address]- 6236 Mar, [facility] [place] [facility] [address] [id number] [place] [address]- 2656 17 Mar, 2012 [facility] [place] [facility] [address] [id number] [place] [address]- 4435 Mar, [facility] [place] [facility] [address] [id number] [place] [address]- 2341 Mar, [facility] [place] [facility] [address] [id number] [place] [address]- 2299 Feb, [facility] [place] [facility] [address] [id number] [place] [address]- 2684 Feb, [facility] [place] [facility] [address] [id number] [place] [address]- 8290 Feb, [facility] [place] [facility] [address] [id number] [place] [address]- 6899 Feb, [facility] [place] [facility] [address] [id number] [place] [address]- 0660 Feb, [facility] [place] [facility] [address] [id number] [place] [address]- 8916 Feb, [facility] [place] [facility] [address] [id number] [place] [address]- 4224 Feb, [facility] [place] [facility] [address] [id number] [place] [address]- 6835 Feb, [facility] [place] [facility] [address] [id number] [place] [address]- 9867 Feb, [facility] [place] [facility] [address] [id number], [place] [address]- 6615 Feb, [facility] [place] [facility] [address] [id number], [place] [address]- 6160 Feb, [facility] [place] [facility] [address] [id number] [place] [address]- 2630 Feb, [facility] [place] [facility] [address] [id number] [place] [address]- 7284 Feb, [facility] [place] [facility] [address] [id number] [place] [address]- 4955 Feb, [facility] [place] [facility] [address] [id number] [place] [address]- 9[address] Feb, [facility] [place] [facility] [address] [id number] [place] [address] Feb, [facility] [place] [facility] [address] [id number] [place] [address] Feb, [facility] [place] [facility] [address] [id number] [place] [address] Feb, [facility] [place] [facility] [address] [id number] [place] [address] Jan, [facility] [place] [facility] [address] [id number] [place] [address] Jan, [facility] [place] [facility] [address] [id number] [place] [address] Jan, [facility] [place] [facility] [address] [id number] [place] [address] Jan, [facility] [place] [facility] [address] [id number] [place] [address] Jan, [facility] [place] [facility] [address] [facility] [id number] [place] [address] 19 Jan, 2012 [facility] [place] [facility] [address] [facility] [id number] [place] [address]65 18 Jan, 2012 [facility] [place] [facility] [address] [id number] [place] [address] 18 Jan, 2012 [facility] [place] [facility] [address] [id number], [place] [address] 15 Jan, 2012 [facility] [place] [facility] [address] [id number] [place] [address] 15 Jan, 2012 [facility] [place] [facility] [address] [facility] [id number] [place] [address]- [address] Jan, [facility] [place] [facility] [address] [id number] [place] [address] Jan, [facility] [place] [facility] [address] [id number] [place] [address] Jan, [facility] [place] [facility] [address] [id number] [place] [address] 8414 Jan, [facility] [place] [facility] [address] [id number] [place] [address] Jan, [facility] [place] [facility] [address] [id number] [place] [address] 29 Dec, 2011 [facility] [place] [facility] [address] [id number] [place] [address] 28 Dec, 2011 [facility] [place] [facility] [address] [id number] [place] [address] 27 Dec, 2011 [facility] [place] [facility] [address] [id number] [place] [address] 26 Dec, 2011 [facility] [place] [facility] [address] [id number] [place] [address] Nov, [facility] [place] [facility] [address] [id number] [place] [address] Nov, [facility] [place] [facility] [address] [id number] [place] [address]237 Nov, [facility] [place] [facility] [address] [id number] [place] [address]247 Nov, [facility] [place] [facility] [address] [id number], [place] [address] Nov, [facility] [place] [facility] [address] [id number] [place] [address]641 Nov, [facility] [place] [facility] [address] [id number] [place] [address]77 Nov, [facility] [place] [facility] [address] [id number] [place] [address]31 Nov, [facility] [place] [facility] [address] [id number], [place] [address] Nov, [facility] [place] [facility] [address] [id number] [place] [address] Nov, [facility] [place] [facility] [address] [id number] [place] [address]783 Nov, [facility] [place] [facility] [address] [id number] [place] [address] Oct, [facility] [place] [facility] [address] [id number] [place] [address] 37[address] Oct, [facility] [place] [facility] [address] [id number] [place] [address]271 Oct, [facility] [place] [facility] [address] [id number] [place] [address]286 Oct, [facility] [place] [facility] [address] [id number] [place] [address] 4118 Oct, [facility] [place] [facility] [address] [id number] [place] [address]646 Oct, [facility] [place] [facility] [address] [id number] [place] [address] 8492 Oct, [facility] [place] [facility] [address] [id number] [place] [address] 1689 Oct, [facility] [place] [facility] [address] [id number] [place] [address] 4969 Sep, [facility] [place] [facility] [address] [id number] [place] [address] Sep, [facility] [place] [facility] [address] [id number] [place] [address]- 9467 Sep, [facility] [place] [facility] [address] [id number] [place] [address]- 6[address] Sep, [facility] [place] [facility] [address] [id number] [place] [address] 96[address] Sep, [facility] [place] [facility] [address] [id number] [place] [address]- 4463 Sep, [facility] [place] [facility] [address] [id number] [place] [address] 7032 Sep, [facility] [place] [facility] [address] [id number] [place] [address]706 August, [facility] [place] [facility] [address] [id number] [place] [address] 3425 August, [facility] [place] [facility] [address] [id number] [place] [address] August, [facility] [place] [facility] [address] [id number] [place] [address] August, [facility] [place] [facility] [address] [id number] [place] [address] August, [facility] [place] [facility] [address] [id number] [place] [address]- 5169 August, [facility] [place] [facility] [address] [id number] [place] [address]184 August, [facility] [place] [facility] [address] [id number] [place] [address]- 1358 August, [facility] [place] [facility] [address] [id number] [place] [address]28 Jul, [facility] [place] [facility] [address] [id number] [place] [address]- 4778 17 Jul, 2011 [facility] [place] [facility] [address] [id number] [place] [address]12 13 Jul, 2011 [facility] [place] [facility] [address] [id number] [place] [address]- [address] Jul, [facility] [place] [facility] [address] [id number] [place] [address] 05 Jul, 2011 [facility] [place] [facility] [address] [id number] [place] [address]959 28 Jun, 2011 [facility] [facility] [address] [id number] [place] [address] 2011 [facility] [place] [facility] [address] [id number] [place] [address] 20 Jun, 2011 [facility] [place] [facility] [address] [id number] [place] [address] 19 Jun, 2011 [facility] [place] [facility] [address] [id number] [place] [address] 12 Jun, 2011 [facility] [place] [facility] [address] [id number] [place] [address] Jun, [facility] [place] [facility] [address] [id number] [place] [address] 12 Jun, 2011 [facility] [place] [facility] [address] [facility] [id number] [place] [address] 07 Jun, 2011 [facility] [place] [facility] [address] [id number] [place] [address] 06 Jun, 2011 [facility] [place] [facility] [address] [facility] [id number] [place] [address] 27 May, 2011 [facility] [place] [address] [facility] [id number] [place] [address] 24 May, 2011 [facility] [place] [facility] [address] [facility] [id number] [place] [address] 23 May, 2011 [facility] [place] [facility] [address] [id number] [place] [address] 23 May, 2011 [facility] [place] [facility] [address] [id number] [place] [address]- [address] 11 May, 2011 [facility] [place] [facility] [address] [facility] [id number] [place] [address] 10 May, 2011 [facility] [place] [facility] [address] [facility] [id number] [place] [address] 07 May, 2011 [facility] [place] [facility] [address] [id number] [place] [address] May, [facility] [address] [id number] [place] [address] Apr, [facility] [facility] [address] [id number] [place] [address] Apr, [facility] [address] [id number] [place] [address] Apr, [facility] [facility] [address] [id number] [place] [address] Apr, [facility] [address] [id number] [place] [address] Apr, [facility] [address] [id number] [place] [address] Apr, [facility] [address] [id number] [place] [address] Mar, [facility] [address] [id number] [place] [address] 268[address] 29 Mar, 2011 [facility] [address] [id number] [place] [address] 26 Mar, 2011 [facility] [address] [id number] [place] [address] 19 Mar, 2011 [facility] [address] [id number] [place] [address] 15 Mar, 2011 [facility] [address] [id number] [place] [address] 13 Mar, 2011 [facility] [address] [id number] [place] [address] 13 Mar, 2011 [facility] [address] [id number] [place] [address] 13 Mar, 2011 [facility] [facility] [address] [id number] [place] [address]658 Mar, [facility] [address] [id number] [place] [address] Mar, [facility] [place] [address] [id number] [place] [address] Mar, [facility] [place] [facility] [address] [id number] [place] [address] Mar, [facility] [place] [facility] [address] [id number] [place] [address] 18[address] Mar, [facility] [place] [address] [id number] [place] [address] Feb, [facility] [place] [facility] [address] [id number] [place] [address] Feb, [facility] [address] [id number] [place] [address] Feb, [facility] [address] [id number], [place] [address] Feb, [facility] [address] [id number] [place] [address]- [address] Feb, [facility] [address] [facility] [id number], [place] [address] Feb, [facility] [address] [id number], [place] [address] Feb, [facility] [address] [id number], [place] [address] Jan, [facility] [address] [id number], [place] [address] Jan, [facility] [address] [id number], [place] [address] Jan, [facility] [address] [facility] [id number], [place] [address] Nov, [facility] [id number], [place] [address] 22 Mar, 2010 [facility] [id number] [address] Mar, [facility] [id number] [address] 20 Mar, 2010 [facility] [id number] [address] 13 Mar, 2010 [facility] [id number], [place] [address] Mar, [facility] [id number] [place] [address] 30 Feb, 2010 [facility] [id number] [address] 30 Feb, 2010 [facility] [id number] [place] [address]- [address] 24 Feb, 2010 [facility] [id number] [address] Feb, [facility] [id number] [place] [address] Feb, [facility] [id number] [address] Feb, IMMUNIZATIONS No Known Immunizations SOCIAL HISTORY Never Assessed REASON FOR VISIT Nutrition ed offered- declined PLAN OF CARE VITAL SIGNS MEDICATIONS Unknown [...]
--- OUTSIDE RECORDS SUMMARY | 2017-08-08 | XMS REPORT ---
Author Author BROOKE Holt Organization [facility] [place] Address [address] [place] [address] Care Team Providers Care Supervisor Spring Up Name Role Phone BROOKE Holt Unavailable PROBLEMS Type Condition ICD9-CM Code CNH19-OH Code Onset Dates Condition Status SNOMED Code Problem Breast cancer C50.919 Active 419931479 Problem Fibromyalgia M79.7 Active 90468037 Problem Hypoxia, sleep related G47.34 Active 87458562 Problem Essential hypertension I10 Active 55274478 Problem Neuropathy G62.9 Active 711606614 Problem Obesity E66.9 Active 818749048 Problem Seasonal allergic rhinitis due to pollen J30.1 Active 55905558 Problem Claustrophobia F40.240 Active 66720020 Problem Cough R05 Active 39924470 Problem Acute pain of left shoulder M25.512 Active 46295183 Problem Acute cystitis with hematuria N30.01 Active 13075205 Problem GERD (gastroesophageal reflux disease) K21.9 Active 509424062 Problem COPD (chronic obstructive pulmonary disease) J44.9 Active 48543564 Problem Arthritis M19.90 Active 7903290 Problem Night terrors, adult F51.4 Active 87398854 Problem Other chronic pain G89.29 Active 75711178 Problem Morbid (severe) obesity due to excess calories E66.01 Active 804601232 Problem Body mass index (BMI) of 40.0-44.9 in adult Z68.41 Active 296823850 Problem Schizoaffective disorder, unspecified F25.9 Active 62195913 Problem Anxiety disorder, unspecified F41.9 Active 527057517 Problem PTSD (post-traumatic stress disorder) F43.10 Active 62231329 Problem MAYRA (generalized anxiety disorder) F41.1 Active 10953791 Problem Overactive bladder N32.81 Active 866685646 Problem Restless leg syndrome G25.81 Active 86346002 Problem Unspecified mood [affective] disorder F39 Active 133752623 Problem Stress incontinence N39.3 Active 76159988 ALLERGIES Substance Reaction Event Type Date Status Latuda mood swings Drug Allergy Sep, Active Prozac Worsened mood swings. Drug Allergy Sep, Active Propranolol HCl Unknown Drug Allergy Sep, Active Neurontin Memory Loss Drug Allergy Sep, Active Ambien Unknown Drug Allergy Sep, Active Advair Diskus dizziness, nausea Drug Allergy Sep, Active ENCOUNTERS Encounter Location Date Diagnosis [place] [id number] [place] [address] 19201- 4915 Jul, Medicare annual wellness visit, initial Z00.00 [place] [id number] [place] [address] 28716- 8953 21 Jun, 2017 [place] [id number] [place] [address] 45287- 9155 20 Jun, 2017 Other chronic pain G89.29 and Pain in left shoulder M25.512 [place] [id number] [place] [address] 10622- 8653 16 Jun, 2017 Other chronic pain G89.29 and Pain in left shoulder M25.512 [place] [id number] [place] [address] 28335- 4530 14 Jun, 2017 [place] [id number] [place] [address] 48466- 4037 13 Jun, 2017 [place] [id number] [place] [address] 28866- 7391 Jun, [place] [id number] [place] [address] 31574- 4058 05 Jun, 2017 BMI 40.0-44.9, adult Z68.41 [facility] [place] [address] [facility] [address] [id number] [id number] May, [place] [id number] [place] [address] 84660- 9008 May, [place] [id number] [place] [address] 68341- 1112 May, [facility] [place] [id number] [place] [address] 19408- 5166 May, [facility] [id number] [place] [address] 82494 -5607 May, Acute cystitis with hematuria N30.01 and BMI 40.0-44.9, adult Z68.41 [facility] [place] [id number] [place] [address] 20261- 9577 May, [facility] [place] [id number] [place] [address] 42336- 3363 May, Essential hypertension I10 ; BMI 40.0-44.9, adult Z68.41 ; COPD (chronic obstructive pulmonary disease) J44.9 ; GERD (gastroesophageal reflux disease) K21.9 ; Fibromyalgia M79.7 ; Night terrors, adult F51.4 ; Nausea R11.0 and Subclinical hypothyroidism E03.9 [facility] [place] [id number] [place] [address] 37803- 3555 May, [facility] [place] [id number] [place] [address] 64538- 7499 Apr, Night terrors, adult F51.4 and Unspecified mood [affective] disorder F39 [place] [id number] [place] [address] 09838- 5361 Apr, [facility] [place] [id number] [place] [address] 22487- 6120 Apr, Unspecified mood [affective] disorder F39 and Anxiety disorder, unspecified F41.9 [place] [id number] [place] [address] 06542- 9369 Apr, [place] [id number] [place] [address] 01859- 1072 Apr, Body mass index (BMI) of 40.0-44.9 in adult Z68.41 [place] [address] [address] 9294 16 Apr, 2017 Essential hypertension I10 and Morbid (severe) obesity due to excess calories E66.01 [facility] [place] [id number] [place] [address] 43066- 2151 12 Apr, 2017 Essential hypertension I10 ; COPD (chronic obstructive pulmonary disease) J44.9 ; Anxiety disorder, unspecified F41.9 ; GERD ( gastroesophageal reflux disease) K21.9 ; Fibromyalgia M79.7 ; Restless leg syndrome G25.81 ; Night terrors, adult F51.4 ; Body mass index (BMI) of 40.0- 44.9 in adult Z68.41 and Morbid (severe) obesity due to excess calories E66.01 [facility] [place] [id number] [place] [address] 72713- 1587 06 Mar, 2017 [place] [id number] [place] [address] 13541- 2027 Feb, [facility] [place] [id number] [place] [address] 70625- 7921 Feb, [facility] [address] [place], [place] [id number] [place] [address] Feb, [facility] [address] [place] [address] 04181 -4095 Feb, Irritant contact dermatitis, unspecified trigger L24.9 [facility] [place] [id number] [place] [address] 87570- 3088 Feb, [place] [address] [place] [address] 20462- 9524 Feb, [facility] [place] [id number] [place] [address] 62262- 5172 07 Feb, 2017 Contact dermatitis and eczema L25.9 ; Essential hypertension I10 ; COPD (chronic obstructive pulmonary disease) J44.9 ; GERD ( gastroesophageal reflux disease) K21.9 ; Arthritis M19.90 ; Breast cancer C50.919 ; Muscle spasm M62.838 ; Restless leg syndrome G25.81 and BMI 40.0-44.9 , adult Z68.41 [facility] [place] [address] 75871- 6136 Feb, [facility] [address] 60530 -6187 Jan, Neck pain M54.2 ; Other chronic pain G89.29 and Cervicalgia M54.2 [facility] [address] 89627 -7575 Jan, Allergic contact dermatitis, unspecified trigger L23.9 [place] [address] 87571- 7800 Jan, [place] [address] 91291- 5356 Jan, [place] [address] 93057- 2678 Dec, [place] [address] 08030- 3288 Dec, Tendonitis of ankle or foot M77.50 ; Hypoxia, sleep related G47.34 ; GERD (gastroesophageal reflux disease) K21.9 and Stress incontinence N39.3 [place] [address] 11101- 0656 Dec, Acute nasopharyngitis J00 ; Biceps tendonitis on left M75.22 ; COPD (chronic obstructive pulmonary disease) J44.9 and Encounter for immunization Z23 [facility] [id number] [place] [address] 86397 -3923 Dec, Dysuria R30.0 [place] [address] 19515- 6747 Nov, [place] [address] 81308- 4745 Nov, [place] [address] [place] [address] 9811 Nov, Claustrophobia F40.240 ; Open wound T14.8 and Neck pain M54.2 [facility] [place] [id number] [place] [address] 95832- 8142 Oct, [facility] [place] [id number] [place] [address] 75320- 7213 Oct, Myalgia M79.1 and Multiple somatic complaints R68.89 [facility] [place] [id number] [place] [address] 88590- 5951 Oct, [facility] [place] [id number] [place] [address] 25629- 4697 Oct, [facility] [place] [id number] [place] [address] 24424- 5178 Sep, [facility] [place] [id number] [place] [address] 84786- 4751 Sep, [facility] [place] [id number] [place] [address] 49609- 9096 Sep, Pain in right knee M25.561 [place] [id number] [place] [address] 44344- 0053 Sep, [facility] [place] [id number] [place] [address] 68724- 5601 Sep, [facility] [place] [id number] [place] [address] 88882- 5133 August, Anxiety disorder, unspecified F41.9 ; Essential hypertension I10 ; GERD (gastroesophageal reflux disease) K21.9 ; Obesity E66.9 ; Unspecified mood [affective] disorder F39 ; Schizoaffective disorder, unspecified F25.9 ; Fatigue, unspecified type R53.83 ; Gastroesophageal reflux disease with esophagitis K21.0 ; Stress incontinence N39.3 ; Neuropathy G62.9 ; Restless leg syndrome G25.81 and Hypoxia, sleep related G47.34 [facility] [id number] [address] August, Vertigo R42 [facility] [place] [id number] [place] [address] 43309- 3462 August, [facility] [id number] [place] [address] 79483 -9080 August, Back pain at L4-L5 level M54.5 [facility] [place] [address] 05197- 1729 August, [place] [id number] [place] [address] 01332- 9275 August, Cough R05 ; COPD (chronic obstructive pulmonary disease) J44.9 ; Seasonal allergic rhinitis due to pollen J30.1 and Fibromyalgia M79.7 [place] [id number] [place] [address] 09609- 3743 August, [place] [id number] [place] [address] 81696- 0364 August, Obesity E66.9 [place] [address] 83671- 2215 August, [place] [id number] [place] [address] 50516- 8974 August, Essential hypertension I10 ; COPD (chronic [...] Restless leg syndrome G25.81 and Neuropathy G62.9 [place] [id number] [place] [address] 78168- 0566 August, [facility] [place] [id number] [address]- 1308 August, [facility] [place] [id number] [place] [address] 76127- 7683 August, [facility] [place] [id number] [place] [address] 47592- 3877 August, [facility] [place] [id number] [place] [address] 47600- 1606 Jul, [facility] [place] [id number] [place] [address] 32433- 6060 Jul, [facility] [place] [id number] [place] [address] 35747- 9099 Jul, Tendonitis of ankle or foot M77.50 [facility] [place] [id number] [place] [address] 07381- 3373 Jul, [facility] [place] [id number] [place] [address] 33467- 4914 Jul, [facility] [place] [id number] [place] [address] 20231- 0631 Jul, [facility] [place] [id number] [place] [address] 55065- 8833 Jul, History of breast cancer Z85.3 [facility] [place] [address] [address]- 9238 Jul, [facility] [place] [id number] [place] [address] 78285- 0967 Jul, Hypoxia, sleep related G47.34 ; Anxiety disorder, unspecified F41.9 ; COPD (chronic obstructive pulmonary disease) J44.9 ; Fibromyalgia M79.7 ; Obesity E66.9 ; Schizoaffective disorder, unspecified F25.9 and MAYRA (generalized anxiety disorder) F41.1 [facility] [place] [address] [address]- 7623 Jul, Tendonitis of ankle or foot M77.50 ; Essential hypertension I10 ; Overactive bladder N32.81 and GERD (gastroesophageal reflux disease) K21.9 [facility] [place] [id number] [place] [address] 47955- 0450 Jun, COPD (chronic obstructive pulmonary disease) J44.9 [facility] [place] [id number] [place] [address] 91682- 9808 Jun, [facility] [place] [address] 45242- 5645 Jun, [facility] [place] [id number] [place] [address] 00344- 8776 Jun, COPD (chronic obstructive pulmonary disease) J44.9 [facility] [place] [id number] [place] [address] 70612- 8964 Jun, [place] [id number] [place] [address] 72984- 4181 Jun, [facility] [place] [id number] [place] [address] 13509- 8146 Jun, Schizoaffective disorder, unspecified F25.9 ; Tendonitis of ankle or foot M77.50 ; Overactive bladder N32.81 and COPD (chronic obstructive pulmonary disease) J44.9 [place] [address] [place] [address] 21069- 8744 May, Pain in right hip M25.551 ; Pain in left hip M25.552 ; Essential hypertension I10 ; COPD (chronic obstructive pulmonary disease) J44.9 ; Unspecified mood [affective] disorder F39 ; Arthritis M19.90 and Obesity E66.9 [facility] [place] [id number] [place] [address] 11021- 7896 May, [facility] [place] [id number] [place] [address] 01121- 9227 May, [facility] [place] [id number] [place] [address] 42641- 8200 May, [place] [address] [address]- 0412 Apr, [facility] [place] [id number] [place] [address] 90240- 8964 Apr, Tendonitis of ankle or foot M77.50 [facility] [place] [id number] [place] [address] 08370- 0533 Apr, [facility] [place] [id number] [place] [address] 81020- 6597 Apr, [facility] [place] [id number] [place] [address] 16179- 6621 Apr, [facility] [place] [id number] [place] [address] 72523- 6888 Mar, [facility] [place] [id number] [place] [address] 49070- 5865 Mar, [facility] [place] [id number] [place] [address] 00833- 7328 Mar, [facility] [place] [id number] [place] [address] 03877- 3682 Feb, [facility] [place] [id number] [place] [address] 41743- 9860 Feb, Tendonitis of ankle or foot M77.50 ; Essential hypertension I10 ; GERD (gastroesophageal reflux disease) K21.9 ; Fibromyalgia M79.7 ; Schizoaffective disorder, unspecified F25.9 ; PTSD (post-traumatic stress disorder) F43.10 ; Sleep apnea in adult G47.33 ; History of breast cancer Z85.3 ; Overactive bladder N32.81 and Restless leg syndrome G25.81 [facility] [place] [address] [place] [address] 06610- 8961 Feb, [facility] [place] [address] [place] [address] 01592- 8987 Feb, [facility] [place] [id number] [place] [address] 84349- 2066 Feb, [facility] [place] [id number] [place] [address] 09078- 8809 Feb, [facility] [place] [id number] [place] [address] 04496- 4419 Feb, [facility] [place] [id number] [place] [address] 16938- 9626 Feb, Essential hypertension I10 [facility] [place] [id number] [place] [address] 76989- 6336 Jan, Gastroesophageal reflux disease with esophagitis K21.0 [facility] [place] [id number] [place] [address] 42677- 4627 Jan, [facility] [place] [id number] [place] [address] 26108- 7828 Jan, Anxiety disorder, unspecified F41.9 ; COPD (chronic obstructive pulmonary disease) J44.9 ; Arthritis M19.90 ; Obesity E66.9 ; Unspecified mood [affective] disorder F39 ; PTSD (post-traumatic stress disorder ) F43.10 ; Breast cancer C50.919 ; Sleep apnea in adult G47.33 ; Gastroesophageal reflux disease with esophagitis K21.0 ; Essential hypertension I10 ; Stress incontinence N39.3 and Encounter for immunization Z23 [facility] [place] [address], [place] [address]- 4958 Jan, [facility] [place] [id number] [place] [address] 66198- 3156 Jan, [facility] [place] [id number] [place] [address] 20386- 1041 Dec, [facility] [place] [id number] [place] [address] 83888- 0937 Nov, [facility] [place] [id number] [place] [address] 37883- 8207 Nov, Sleep apnea in adult G47.33 [facility] [place] [id number] [place] [address]- 1751 Nov, Sleep apnea in adult G47.33 [facility] [place] [address] [facility] [id number] [place] [address], [place] [address]- 0930 Nov, Sleep apnea, unspecified type G47.30 [facility] [address] [facility] [id number] [place] [address]- 0546 Nov, [facility] [address] [facility] [id number] [place] [address], [place] [address]- 7882 Nov, [facility] [address] [facility] [id number] [place] [address], [place] [address]- 4634 Nov, [facility] [address] [facility] [id number] [place] [address], [place] [address]- 1630 Nov, Pain R52 [facility] [id number] [place] [address], [place] [address]- 7573 Nov, [facility] [id number] [place] [address], [place] [address]- 8628 Nov, [facility] [id number] [place] [address], [place] [address]- 7294 Nov, [facility] [id number] [place] [address], [place] [address]- 6197 Nov, Sleep apnea in adult G47.33 [facility] [place] [address] [place] [place] [address] 2540 Nov, [facility] [address] [facility] [id number] [address]- 2544 Oct, [facility] [address] [facility] [id number] [place] [address], [place] [address]- 8110 Oct, [facility] [address] [facility] [id number] [place] [address]- 2540 Oct, [facility] [address] [facility] [id number] [address]- 7043 Oct, Muscle soreness M79.1 [facility] [place] [id number] [place] [address]153- 3502 15 Oct, 2015 Fatigue, unspecified type R53.83 and Essential hypertension I10 [facility] [place] [id number] [place] [address] 36600- 2175 14 Oct, 2015 Bruising T14.8 ; Acute right-sided low back pain without sciatica M54.5 and Schizoaffective disorder, unspecified F25.9 [facility] [place] [id number] [place] [address] 57134- 2912 Oct, [facility] [place] [id number] [place] [address] 34021- 4662 08 Oct, 2015 [facility] [place] [id number] [place] [address] 27965- 6193 Oct, [facility] [place] [id number] [place] [address] 31759- 6736 Oct, [facility] [place] [id number] [place] [address] 42876- 3354 Oct, COPD (chronic obstructive pulmonary disease) J44.9 [facility] [place] [id number] [place] [address] 87411- 6085 Oct, [facility] [place] [address] [id number] [address] Oct, Sleep apnea, unspecified type G47.30 [facility] [place] [address] [id number] [address] Oct, [facility] [place] [id number] [place] [address] 20547- 9651 Sep, [facility] [place] [id number] [place] [address] 37199- 1542 Sep, [facility] [place] [address] [id number] [address] Sep, [facility] [place] [id number] [address] Sep, [facility] [place] [id number] [place] [address] 65502- 3251 Sep, Pain in right hip M25.551 [facility] [place] [address] [id number] [address] 17 Sep, 2015 [facility] [place] [id number] [place] [address] 30793- 4148 15 Sep, 2015 [facility] [place] [id number] [place] [address] 94555- 6253 Sep, [facility], [place] [id number] [place] [address] 50595- 7316 Sep, [facility], [place] [id number] [place] [address] 76972- 5761 Sep, Dental examination Z01.20 [facility], [place] [id number] [place] [address] 78875- 9955 Sep, [facility], [place] [id number] [place] [address] 66811- 1379 August, [facility], [place] [id number] [place] [address] 21148- 8470 August, [facility], [place] [id number] [place] [address] 84452- 6251 August, [facility], [place] [id number] [place] [address] 72824- 2762 August, Burn of stomach, initial encounter T28.2XXA ; Acute right- sided low back pain without sciatica M54.5 ; Fatigue, unspecified type R53.83 ; Intermittent drowsiness R40.0 ; Essential hypertension I10 and COPD (chronic obstructive pulmonary disease) J44.9 [facility], [place] [id number] [place] [address] 63173- 5912 August, [facility], [place] [id number] [address] 0791 August, [facility], [place] [id number] [place] [address] 97441- 1845 August, Arthralgia of right knee M25.561 ; Arthralgia of right hip M25.551 and Arthralgia of right ankle M25.571 [facility], [place] [id number] [place] [address] 63486- 2528 Jul, [facility], [place] [id number] [place] [address] 70081- 6368 Jul, [facility], [place] [id number] [place] [address] 83329- 4750 Jul, [facility], [place] [id number] [place] [address] 44371- 1964 Jul, [facility] [id number] [place] [address] 03051 -5015 Jul, Seasonal allergies J30.2 [facility], [place] [id number] [place] [address] 75749- 4978 Jul, [facility], [place] [id number] [place] [address] 91214- 3575 30 Jun, 2015 [facility], [place] [id number] [place] [address] 90909- 2862 Jun, [facility], [place] [id number] [place] [address] 48133- 9121 17 Jun, 2015 Schizoaffective disorder, unspecified F25.9 and MAYRA ( generalized anxiety disorder) F41.1 [facility], [place] [id number] [place] [address] 74146- 8092 16 Jun, 2015 [facility], [place] [id number] [place] [address] 41568- 6481 14 Jun, 2015 [address] [id number] Jun, [address] [id number] Jun, [facility] [address] [facility] [id number] [place] [id number] Jun, [facility] [address] [facility] [id number] [place] [id number] Jun, [facility], [place] [address] [address]- 4612 Jun, [facility], [place] [id number] [place] [address] 18833- 0558 Jun, Essential hypertension I10 [facility], [place] [id number] [place] [address] 93150- 9859 Jun, [facility], [place] [id number] [place] [address] 96035- 0925 Jun, Surgical wound dehiscence T81.31XA [facility], [place] [id number] [place] [address] 37327- 8468 Jun, [facility], [place] [address], [place] [address]- 8629 May, [facility], [place] [id number] [place] [address] 75442- 8282 May, [facility], [place] [address] [address]- 1690 May, [facility], [place] [address] [address]- 1112 May, [facility], [place] [address] [address]- 7123 May, [facility] [address] [address]4 May, [facility], [place] [address] [address]- 7369 Apr, [facility], [place] [id number] [place] [address] 21882- 9135 Apr, [facility], [place] [address] [address]- 3216 Apr, Schizoaffective disorder, unspecified F25.9 ; MAYRA ( generalized anxiety disorder) F41.1 and PTSD (post-traumatic stress disorder) F43.10 [facility], [place] [address] [address]- 8436 Apr, Pain in left knee M25.562 [facility], [place] [id number] [place] [address]- 0646 Apr, [facility], [place] [address], [place] [address]- 9619 Apr, [facility], [place] [address], [place] [address]- 6918 Apr, [facility], [place] [id number] [place] [address] 55914- 1470 Apr, [facility], [place] [id number] [address]- 7855 Apr, [facility], [place] [address] [address]- 6922 Apr, [facility], [place] [address] [address]- 1010 Apr, Malignant neoplasm of left female breast, unspecified site of breast C50.912 [facility], [place] [id number] [address]- 5506 Apr, [facility], [place] [id number] [address]- 7196 Apr, [facility], [place] [id number] [address]- 4695 Apr, [facility], [place] [id number] [address]- 9617 Mar, [facility], [place] [id number] [place] [address] 81014- 5150 23 Mar, 2015 H/O CT scan Z92.89 [facility], [place] [id number] [place] [address] 27740- 8381 Mar, Breast mass N63 and H/O CT scan Z92.89 [facility], [place] [id number] [place] [address] 27586- 1523 18 Mar, 2015 Generalized anxiety disorder F41.1 [facility], [place] [id number] [place] [address] 27320- 2857 18 Mar, 2015 Confusion R41.0 and Stroke-like symptoms R29.90 [facility], [place] [id number] [place] [address] 25608- 3469 16 Mar, 2015 [facility], [place] [id number] [place] [address] 45884- 2421 16 Mar, 2015 Stroke-like symptoms R29.90 [facility], [place] [id number] [place] [address] 49290- 4153 15 Mar, 2015 [facility], [place] [id number] [place] [address] 21881- 0843 14 Mar, 2015 Breast anomaly Q83.9 [facility], [place] [id number] [place] [address] 45857- 0179 14 Mar, 2015 COPD (chronic obstructive pulmonary disease) J44.9 and Stroke-like symptoms R29.90 [facility], [place] [id number] [place] [address] 39264- 1701 10 Mar, 2015 [facility], [place] [id number] [place] [address] 81162- 5560 09 Mar, 2015 Pain of right lower leg M79.661 [facility], [place] [id number] [place] [address] 80604- 4995 08 Mar, 2015 [facility], [place] [id number] [place] [address] 63974- 6105 Mar, [facility], [place] [id number] [place] [address] 56317- 2744 Mar, Schizoaffective disorder, unspecified F25.9 ; MAYRA ( generalized anxiety disorder) F41.1 and PTSD (post-traumatic stress disorder) F43.10 [id number] [place] [address] 84423- 5210 Mar, [address] 27834- 6276 Feb, Unspecified mood [affective] disorder F39 and Anxiety disorder, unspecified F41.9 [address] [place] [id number] [place] [address] 24415- 9578 Feb, [address] [id number] [place] [address] 23274- 1540 Feb, [address] [id number] [place] [address] 27007- 1622 Feb, [address] [id number] [place] [address] 70026- 2188 Feb, [id number] [place] [address] 30193- 4342 Feb, Unspecified mood [affective] disorder F39 and Anxiety disorder, unspecified F41.9 [id number] [place] [address] 99971- 3791 Feb, Essential hypertension I10 ; Routine adult health maintenance Z00.00 ; COPD (chronic obstructive pulmonary disease) J44.9 ; GERD ( gastroesophageal reflux disease) K21.9 ; Fibromyalgia M79.7 ; Breast cancer screening Z12.39 ; Fungal infection of skin B36.9 and Weight gain R63.5 [address] [place] [id number] [place] [address] 15908- 4728 Jan, [address] [place] [id number] [place] [address] 83160- 5558 Dec, Anxiety 300.00 ; PTSD (post-traumatic stress disorder) 309.81 and Major depression, recurrent 296.30 [facility], [place] [address], [place] [address]- 1087 Dec, [facility], [place] [id number] [address]- 9252 Dec, [facility], [place] [address], [place] [address]- 0419 Nov, [facility], [place] [id number] [place] [address] 18687- 5628 Nov, [facility], [place] [address] [address]- 5847 Nov, [facility], [place] [id number] [place] [address] 27358- 7740 Oct, [facility], [place] [id number] [address]- 4511 Oct, Bipolar 1 disorder, mixed 296.60 ; No condition on [place] II V71.09 ; No condition on axis III V71.09 and ADHD (attention deficit hyperactivity disorder), combined type 314.01 [facility], [place] [id number] [place] [address] 52365- 6921 Oct, [facility], [place] [address], [place] [address]- 6269 Oct, [facility], [place] [address] [address]- 4440 Oct, Posttraumatic stress disorder 309.81 and Schizoaffective disorder, unspecified 295.70 [facility], [place] [address], [place] [address]- 2900 Oct, [facility], [place] [id number] [address] 8077 Sep, [facility], [place] [address], [place] [address]- 8723 August, [facility], [place] [id number] [place] [address], [place] [address]- 6916 August, [facility] [place] [facility] [address] [id number] [place] [address]- 3377 August, [facility] [place] [facility] [address] [id number] [place] [address]- 9763 August, [facility] [place] [facility] [address] [id number] [place] [address]- 2536 Jul, [facility] [place] [facility] [address] [id number] [place] [address]- 3040 Jul, [facility] [place] [facility] [address] [id number] [place] [address]- 4515 Jun, [facility] [place] [facility] [address] [id number] [place] [address]- 6410 Jun, [facility] [place] [facility] [address] [id number] [place] [address]- 1340 Jun, [facility] [place] [facility] [address] [id number] [place] [address]- 2055 Jun, [facility] [place] [facility] [address] [id number] [place] [address]- 3943 Jun, [facility] [place] [facility] [address] [id number] [place] [address]- 6070 Jun, [facility] [place] [facility] [address] [id number] [place] [address]- 3821 Jun, [facility] [place] [facility] [address] [id number] [place] [address]- 3602 Jun, [facility] [place] [facility] [address] [id number] [place] [address]- 3903 Jun, [facility] [place] [facility] [address] [id number] [place] [address]- 0380 Jun, [facility] [place] [facility] [address] [id number] [place] [address]- 8552 Jun, [facility] [place] [facility] [address] [id number] [place] [address]- 3481 23 Jun, 2014 [facility] [place] [facility] [address] [id number] [place] [address]- 3334 19 Jun, 2014 [facility] [place] [facility] [address] [id number] [place] [address]- 9474 19 Jun, 2014 [facility] [place] [facility] [address] [id number] [place] [address]- 9518 19 Jun, 2014 [facility] [place] [facility] [address] [id number] [place] [address]- 2547 19 Jun, 2014 [facility] [place] [facility] [address] [id number] [place] [address]- 6700 18 Jun, 2014 [facility] [place] [facility] [address] [id number] [place] [address]- 3984 18 Jun, 2014 [facility] [place] [facility] [address] [id number] [place] [address]- 2488 18 Jun, 2014 [facility] [place] [facility] [address] [id number] [place] [address]- 2594 18 Jun, 2014 [facility] [place] [facility] [address] [id number] [place] [address]- 4603 17 Jun, 2014 [facility] [place] [facility] [address] [id number] [place] [address]- 3903 17 Jun, 2014 [facility] [place] [facility] [address] [id number] [place] [address]- 8561 17 Jun, 2014 [facility] [place] [facility] [address] [id number] [place] [address]- 7743 17 Jun, 2014 [facility] [place] [facility] [address] [id number] [place] [address]- 2348 13 Jun, 2014 [facility] [place] [facility] [address] [id number] [place] [address]- 5212 13 Jun, 2014 [facility] [place] [facility] [address] [id number] [place] [address]- 1066 Jun, [facility] [place] [facility] [address] [id number] [place] [address]- 5189 Jun, [facility] [place] [facility] [address] [id number] [place] [address]- 6426 Jun, [facility] [place] [facility] [address] [id number] [place] [address]- 8714 Jun, [facility] [place] [facility] [address] [id number] [place] [address]- 8271 Jun, [facility] [place] [facility] [address] [id number] [place] [address]- 3213 Jun, [facility] [place] [facility] [address] [id number] [place] [address]- 3243 Jun, [facility] [place] [facility] [address] [id number] [place] [address]- 1046 Jun, [facility] [place] [facility] [address] [id number] [place] [address]- 4275 Jun, [facility] [place] [facility] [address] [id number] [place] [address]- 9857 Jun, [facility] [place] [facility] [address] [facility] [id number] [place] [address]- 4466 Jun, [facility] [place] [facility] [address] [id number] [place] [address]- 8507 Jun, [facility] [place] [facility] [address] [id number] [place] [address]- 6193 May, [facility] [place] [facility] [address] [id number] [place] [address]- 3007 May, [facility] [place] [facility] [address] [id number] [place] [address]- 4173 May, [facility] [place] [facility] [address] [id number] [place] [address]- 4201 May, [facility] [place] [facility] [address] [id number] [place] [address]- 3113 May, 2014 [facility] [place] [facility] [address] [id number] [place] [address]- 8040 May, 2014 [facility] [place] [facility] [address] [id number] [place] [address]- 2546 May, 2014 [facility] [place] [facility] [address] [id number] [place] [address]- 1991 May, 2014 [facility] [place] [facility] [address] [id number] [place] [address]- 2547 May, 2014 [facility] [place] [facility] [address] [id number] [place] [address]- 2679 May, 2014 [facility] [place] [facility] [address] [facility] [id number] [place] [address]- 4657 May, 2014 [facility] [place] [facility] [address] [id number] [place] [address]- 1972 May, 2014 [facility] [place] [facility] [address] [id number] [place] [address]- 1920 May, [facility] [place] [facility] [address] [facility] [id number] [place] [address]- 3397 May, 2014 [facility] [place] [facility] [address] [id number] [place] [address]- 5657 May, [facility] [place] [facility] [address] [id number] [place] [address]- 7467 May, [facility] [place] [facility] [address] [id number] [place] [address]- 4543 Apr, [facility] [place] [facility] [address] [id number] [place] [address]- 0869 Apr, [facility] [place] [facility] [address] [id number] [place] [address]- 9142 Apr, [facility] [place] [facility] [address] [id number] [place] [address]- 6537 Apr, [facility] [place] [facility] [address] [id number] [place] [address]- 3586 Apr, [facility] [place] [facility] [address] [id number] [place] [address]- 6340 Apr, [facility] [place] [facility] [address] [id number] [place] [address]- 8058 Apr, [facility] [place] [facility] [address] [id number] [place] [address]- 0371 Apr, [facility] [place] [facility] [address] [id number] [place] [address]- 0237 Apr, [facility] [place] [facility] [address] [id number] [place] [address]- 3439 Apr, [facility] [place] [facility] [address] [id number] [place] [address]- 8095 Apr, [facility] [place] [facility] [address] [id number] [place] [address]- 9409 Apr, [facility] [place] [facility] [address] [id number] [place] [address]- 7411 Apr, [facility] [place] [facility] [address] [id number] [place] [address]- 6577 Apr, [facility] [place] [facility] [address] [id number] [place] [address]- 3800 Apr, [facility] [place] [facility] [address] [id number] [place] [address]- 1793 Mar, [facility] [place] [facility] [address] [id number] [place] [address] Mar, [facility] [place] [facility] [address] [id number] [place] [address] Mar, [facility] [place] [facility] [address] [id number] [place] [address] Mar, [facility] [place] [facility] [address] [id number] [place] [address] Mar, [facility] [place] [facility] [address] [id number] [place] [address] Mar, [facility] [place] [facility] [address] [id number] [place] [address] 15 Mar, 2014 [facility] [place] [facility] [address] [id number] [place] [address] 15 Mar, 2014 [facility] [place] [facility] [address] [id number] [place] [address] 15 Mar, 2014 [facility] [place] [facility] [address] [id number] [place] [address] Mar, [facility] [place] [facility] [address] [id number] [place] [address] Mar, [facility] [place] [facility] [address] [id number] [place] [address] Mar, [facility] [place] [facility] [address] [id number] [place] [address] Mar, [facility] [place] [facility] [address] [id number] [place] [address] Mar, [facility] [place] [facility] [address] [id number] [place] [address] Mar, [facility] [place] [facility] [address] [id number] [place] [address] Mar, [facility] [place] [facility] [address] [id number] [place] [address] Mar, [facility] [place] [facility] [address] [id number] [place] [address] Mar, [facility] [place] [facility] [address] [id number] [place] [address] Feb, [facility] [place] [facility] [address] [id number] [place] [address] Feb, [facility] [place] [facility] [address] [id number] [place] [address] Feb, [facility] [place] [facility] [address] [id number] [place] [address] Feb, [facility] [place] [facility] [address] [id number] [place] [address] Feb, [facility] [place] [facility] [address] [id number] [place] [address] Feb, [facility] [place] [facility] [address] [id number] [place] [address] Feb, [facility] [place] [facility] [address] [id number] [place] [address] Feb, [facility] [place] [facility] [address] [id number] [place] [address] Jan, [facility] [place] [facility] [address] [id number] [place] [address] Jan, [facility] [place] [facility] [address] [id number] [place] [address] Jan, [facility] [place] [facility] [address] [id number] [place] [address] Jan, [facility] [place] [facility] [address] [id number] [address] Jan, [facility] [place] [facility] [address] [id number], [place] [address] 31 Jan, 2014 [facility] [place] [facility] [address] [id number] [place] [address] Jan, [facility] [place] [facility] [address] [id number] [place] [address] Jan, [facility] [place] [facility] [address] [id number] [place] [address] Jan, [facility] [place] [facility] [address] [id number] [place] [address]- [address] 24 Jan, 2014 [facility] [place] [facility] [address] [id number] [place] [address] Jan, [facility] [place] [facility] [address] [id number] [place] [address] Jan, [facility] [place] [facility] [address] [id number] [place] [address] Jan, [facility] [place] [facility] [address] [id number] [place] [address] Jan, [facility] [place] [facility] [address] [id number] [place] [address] 16 Jan, 2014 [facility] [place] [facility] [address] [id number] [place] [address] 16 Jan, 2014 [facility] [place] [facility] [address] [id number] [place] [address] Jan, [facility] [place] [facility] [address] [id number] [place] [address]- [address] 13 Jan, 2014 [facility] [place] [facility] [address] [id number] [place] [address] 29 Dec, 2013 [facility] [place] [facility] [address] [id number] [place] [address] 29 Sep, 2013 [facility] [place] [facility] [address] [id number] [place] [address]- [address] 26 Sep, 2013 [facility] [place] [facility] [address] [id number] [place] [address]- [address] 26 Sep, 2013 [facility] [place] [facility] [address] [id number] [place] [address] 26 Dec, 2013 [facility] [place] [facility] [address] [id number] [place] [address]- [address] 26 Dec, 2013 [facility] [place] [facility] [address] [id number] [place] [address]10 23 Dec, 2013 [facility] [place] [facility] [address] [id number] [place] [address] 6785 23 Dec, 2013 [facility] [place] [facility] [address] [id number] [place] [address] 2068 22 Dec, 2013 [facility] [place] [facility] [address] [id number] [place] [address] 6989 22 Dec, 2013 [facility] [place] [facility] [address] [id number] [place] [address] 2540 16 Dec, 2013 [facility] [place] [facility] [address] [id number] [place] [address] 4034 16 Dec, 2013 [facility] [place] [facility] [address] [id number] [place] [address]- 1191 15 Dec, 2013 [facility] [place] [facility] [address] [id number] [place] [address]- 7384 15 Dec, 2013 [facility] [place] [facility] [address] [id number] [place] [address]- 8259 09 Dec, 2013 [facility] [place] [facility] [address] [id number] [place] [address]- 4667 Dec, [facility] [place] [facility] [address] [id number] [place] [address]- 9799 Dec, [facility] [place] [facility] [address] [id number] [place] [address]- 4935 Nov, [facility] [place] [facility] [address] [id number] [place] [address]- 8056 Nov, [facility] [place] [facility] [address] [id number] [place] [address]- 4525 Nov, [facility] [place] [facility] [address] [id number] [place] [address]- 3493 Nov, [facility] [place] [facility] [address] [id number] [place] [address]- 6978 Nov, [facility] [place] [facility] [address] [id number] [place] [address]- 7488 Nov, [facility] [place] [facility] [address] [id number] [place] [address]- 0199 Nov, [facility] [place] [facility] [address] [id number] [place] [address]- 8275 Nov, [facility] [place] [facility] [address] [id number] [place] [address]- 3002 Nov, [facility] [place] [facility] [address] [id number] [place] [address]- 1042 Nov, [facility] [place] [facility] [address] [id number] [place] [address]- 5696 Nov, [facility] [place] [facility] [address] [id number] [place] [address]- 3989 Nov, [facility] [place] [facility] [address] [id number] [place] [address]- 8113 Nov, [facility] [place] [facility] [address] [id number] [place] [address]- 7713 Nov, [facility] [place] [facility] [address] [id number] [place] [address]- 6331 Nov, [facility] [place] [facility] [address] [id number] [place] [address]- 0425 Nov, [facility] [place] [facility] [address] [id number] [place] [address]- 4883 Nov, [facility] [place] [facility] [address] [id number] [place] [address]- 1051 Nov, [facility] [place] [facility] [address] [id number] [place] [address]- 5817 Nov, [facility] [place] [facility] [address] [id number] [place] [address]- 6588 Nov, [facility] [place] [facility] [address] [id number] [place] [address]- 1289 Nov, [facility] [place] [facility] [address] [id number] [place] [address] 8[address] Oct, [facility] [place] [facility] [address] [id number] [facility] [place] [address] 4172 Oct, [facility] [place] [facility] [address] [id number] [place] [address]- 6643 Oct, [facility] [place] [facility] [address] [id number] [place] [address]- 1220 Oct, [facility] [place] [facility] [address] [id number] [place] [address]- 4042 Oct, [facility] [place] [facility] [address] [id number] [place] [address]- 1348 Oct, [facility] [place] [facility] [address] [id number] [place] [address]- 1681 Oct, [facility] [place] [facility] [address] [id number] [place] [address]- 2797 Oct, [facility] [place] [facility] [address] [id number] [place] [address]- 9976 Oct, [facility] [place] [facility] [address] [id number] [place] [address]- 5646 Oct, [facility] [place] [facility] [address] [id number] [place] [address]- 4716 Oct, [facility] [place] [facility] [address] [id number] [place] [address]- 6715 Oct, [facility] [place] [facility] [address] [id number] [place] [address]- 0482 Oct, [facility] [place] [facility] [address] [id number] [place] [address]- 6098 Oct, [facility] [place] [facility] [address] [id number] [place] [address]- 1056 Oct, [facility] [place] [facility] [address] [id number] [place] [address]- 9721 Sep, [facility] [place] [facility] [address] [id number] [place] [address]- 6536 30 Sep, 2013 [facility] [place] [facility] [address] [id number] [place] [address]- 4873 Sep, [facility] [place] [facility] [address] [id number] [place] [address]- 6030 Sep, [facility] [place] [facility] [address] [id number] [place] [address]- 1246 Sep, [facility] [place] [facility] [address] [id number] [place] [address]- 9279 Sep, [facility] [place] [facility] [address] [id number] [place] [address]- 4429 18 Sep, 2013 [facility] [place] [facility] [address] [id number] [place] [address]- 5079 Sep, [facility] [place] [facility] [address] [id number] [place] [address]- 3661 17 Sep, 2013 [facility] [place] [facility] [address] [id number] [place] [address]- 8148 Sep, [facility] [place] [facility] [address] [id number] [place] [address]- 8104 Sep, [facility] [place] [facility] [address] [id number] [place] [address]- 5592 Sep, [facility] [place] [facility] [address] [id number] [address]- 5539 16 Sep, 2013 [facility] [place] [facility] [address] [id number] [place] [address]- 5019 Sep, [facility] [place] [facility] [address] [id number] [place] [address]- 1631 Sep, [facility] [place] [facility] [address] [id number] [place] [address]- 4503 09 Sep, 2013 [facility] [place] [facility] [address] [id number] [place] [address]- 2872 Sep, [facility] [place] [facility] [address] [id number] [place] [address]- 4296 Sep, [facility] [place] [facility] [address] [id number] [place] [address]- 2112 Sep, [facility] [place] [facility] [address] [id number] [place] [address]- 6405 Sep, [facility] [place] [facility] [address] [id number] [place] [address]- 2597 Sep, [facility] [place] [facility] [address] [id number] [place] [address]- 2454 Sep, [facility] [place] [facility] [address] [id number] [place] [address]- 4560 August, [facility] [place] [facility] [address] [id number] [place] [address]- 5329 August, [facility] [place] [facility] [address] [id number] [place] [address]- 2833 August, [facility] [place] [facility] [address] [id number] [place] [address]- 4500 August, [facility] [place] [facility] [address] [id number] [place] [address]- 7936 August, [facility] [place] [facility] [address] [id number] [place] [address]- 3748 August, [facility] [place] [facility] [address] [id number] [place] [address]- 7052 August, [facility] [place] [facility] [address] [id number] [place] [address]- 5009 August, [facility] [place] [facility] [address] [id number] [place] [address]- 2929 August, [facility] [place] [facility] [address] [id number] [place] [address]- 6316 August, [facility] [place] [facility] [address] [id number] [place] [address]- 8462 August, [facility] [place] [facility] [address] [id number] [place] [address]- 3726 August, [facility] [place] [facility] [address] [id number] [place] [address]- 0501 August, [facility] [place] [facility] [address] [id number] [place] [address]- 0583 August, [facility] [place] [facility] [address] [id number] [place] [address]- 6903 August, [facility] [place] [facility] [address] [id number] [place] [address]- 0850 August, [facility] [place] [facility] [address] [id number] [place] [address]- 7522 August, [facility] [place] [facility] [address] [id number] [place] [address]- 4995 August, [facility] [place] [facility] [address] [id number] [place] [address]- 5892 Jul, [facility] [place] [facility] [address] [id number] [place] [address]- 7562 Jul, [facility] [place] [facility] [address] [id number] [place] [address]- 8918 Jul, [facility] [place] [facility] [address] [id number] [place] [address]- 1965 Jul, [facility] [place] [facility] [address] [id number] [place] [address]- 4441 Jul, [facility] [place] [facility] [address] [id number] [place] [address]- 5805 Jul, [facility] [place] [facility] [address] [id number] [place] [address]- 0852 Jul, [facility] [place] [facility] [address] [id number] [place] [address]- 6938 22 Jul, 2013 [facility] [place] [facility] [address] [id number] [place] [address]- 1374 22 Jul, 2013 [facility] [place] [facility] [address] [id number] [place] [address]- 3500 21 Jul, 2013 [facility] [place] [facility] [address] [id number] [place] [address]- 5149 21 Jul, 2013 [facility] [place] [facility] [address] [id number] [place] [address]- 7456 18 Jul, 2013 [facility] [place] [facility] [address] [id number] [place] [address]- 9109 18 Jul, 2013 [facility] [place] [facility] [address] [id number] [place] [address]- 7431 17 Jul, 2013 [facility] [place] [facility] [address] [id number] [place] [address]- 0418 17 Jul, 2013 [facility] [place] [facility] [address] [id number] [place] [address]- 1546 17 Jul, 2013 [facility] [place] [facility] [address] [id number] [place] [address]- 4030 17 Jul, 2013 [facility] [place] [facility] [address] [id number] [place] [address]- 2926 16 Jul, 2013 [facility] [place] [facility] [address] [id number] [place] [address]- 7371 16 Jul, 2013 [facility] [place] [facility] [address] [id number] [place] [address]- 7195 15 Jul, 2013 [facility] [place] [facility] [address] [id number] [place] [address]- 9353 15 Jul, 2013 [facility] [place] [facility] [address] [id number] [place] [address]- 9817 14 Jul, 2013 [facility] [place] [facility] [address] [id number] [place] [address]- 1832 14 Jul, 2013 [facility] [place] [facility] [address] [id number] [place] [address]- 7431 12 Jul, 2013 [facility] [address] [id number] [place] [address]- 4898 Jul, [facility] [place] [facility] [address] [id number] [place] [address]- 9626 Jul, [facility] [place] [facility] [address] [id number] [place] [address]- 6646 Jul, [facility] [place] [facility] [address] [id number] [place] [address]- 2887 Jul, [facility] [place] [facility] [address] [id number] [place] [address]- 9845 Jul, [facility] [place] [facility] [address] [id number] [place] [address]- 5056 17 Jun, 2013 [facility] [place] [facility] [address] [id number] [place] [address]- 2122 17 Jun, 2013 [facility] [place] [facility] [address] [id number] [place] [address]- 6597 17 Jun, 2013 [facility] [place] [facility] [address] [id number] [place] [address]- 9975 17 Jun, 2013 [facility] [place] [facility] [address] [id number] [place] [address]- 4581 13 Jun, 2013 [facility] [place] [facility] [address] [id number] [place] [address]- 1470 13 Jun, 2013 [facility] [place] [facility] [address] [id number] [place] [address]- 1528 11 Jun, 2013 [facility] [place] [facility] [address] [id number] [place] [address]- 2468 11 Jun, 2013 [facility] [place] [facility] [address] [id number] [place] [address]- 3296 10 Jun, 2013 [facility] [place] [facility] [address] [id number] [place] [address]- 7421 Jun, [facility] [place] [facility] [address] [id number] [place] [address]- 8491 Jun, [facility] [place] [facility] [address] [id number] [place] [address]- 1176 Jun, [facility] [place] [facility] [address] [id number] [place] [address]- 6910 May, [facility] [place] [facility] [address] [id number] [place] [address]- 1747 May, [facility] [place] [facility] [address] [id number] [place] [address]- 6718 May, [facility] [place] [facility] [address] [id number] [place] [address]- 5472 May, [facility] [place] [facility] [address] [id number] [place] [address]- 7435 May, [facility] [place] [facility] [address] [id number] [place] [address]- 4886 May, [facility] [place] [facility] [address] [id number] [place] [address]- 5346 May, [facility] [place] [facility] [address] [id number] [place] [address]- 8105 May, [facility] [place] [facility] [address] [id number] [place] [address]- 4524 May, [facility] [place] [facility] [address] [id number] [place] [address]- 7395 May, [facility] [place] [facility] [address] [id number] [place] [address]- 5803 Apr, [facility] [place] [facility] [address] [id number] [place] [address]- 1173 Apr, [facility] [place] [facility] [address] [id number] [place] [address]- 7363 Apr, [facility] [place] [facility] [address] [id number] [place] [address]- 4781 Apr, [facility] [address] [id number] [place] [address]- 4488 Apr, [facility] [place] [facility] [address] [id number] [place] [address]- 8827 Apr, [facility] [place] [facility] [address] [id number] [place] [address]- 3496 Apr, [facility] [place] [facility] [address] [id number] [place] [address]- 8514 Apr, [facility] [place] [facility] [address] [id number] [place] [address]- 8543 Apr, [facility] [place] [facility] [address] [id number] [place] [address]- 8556 Apr, [facility] [address] [id number] [place] [address]- 2183 Mar, [facility] [address] [id number] [place] [address]- 5863 Mar, [facility] [address] [id number] [place] [address]- 8758 Mar, [facility] [address] [id number] [place] [address]- 8873 Mar, [facility] [address] [id number] [place] [address]- 6945 Mar, [facility] [address] [id number] [place] [address]- 8296 Mar, [facility] [place] [facility] [address] [id number] [place] [address]- 4151 Feb, [facility] [place] [facility] [address] [id number] [place] [address]- 4926 Feb, [facility] [place] [facility] [address] [id number] [place] [address]- 2306 Feb, [facility] [place] [facility] [address] [id number] [place] [address]- 0049 Jan, [facility] [place] [facility] [address] [id number] [place] [address]- 7466 Jan, [facility] [place] [facility] [address] [id number] [place] [address]- 7362 Jan, [facility] [place] [facility] [address] [id number] [place] [address]- 9245 Jan, [facility] [place] [facility] [address] [id number] [place] [address]- 6881 Jan, [facility] [place] [facility] [address] [id number] [place] [address]- 7056 Jan, [facility] [place] [facility] [address] [id number] [place] [address]- 4607 Jan, [facility] [place] [facility] [address] [id number] [address]- 9379 Jan, [facility] [place] [facility] [address] [id number] [place] [address]- 4799 Jan, [facility] [place] [facility] [address] [id number], [place] [address]- 0574 Jan, [facility] [place] [facility] [address] [id number], [place] [address]- 3101 30 Dec, 2012 [facility] [place] [facility] [address] [id number], [place] [address]- 5810 25 Dec, 2012 [facility] [place] [facility] [address] [id number], [place] [address]- 0207 11 Dec, 2012 [facility] [place] [facility] [address] [id number], [place] [address]- 0107 09 Sep, 2012 [facility] [place] [facility] [address] [id number], [place] [address]- 3918 05 Sep, 2012 [facility] [place] [facility] [address] [id number], [place] [address]- 9971 Dec, [facility] [place] [facility] [address] [id number] [place] [address]- 7197 Nov, [facility] [place] [facility] [address] [id number] [place] [address]- 8298 Nov, [facility] [place] [facility] [address] [id number] [place] [address]- 8090 Nov, [facility] [place] [facility] [address] [id number] [place] [address]- 1920 Nov, [facility] [place] [facility] [address] [id number] [place] [address]- 7401 Nov, [facility] [place] [facility] [address] [id number] [place] [address]- 9766 Nov, [facility] [place] [facility] [address] [id number] [place] [address]- 5387 Nov, [facility] [place] [facility] [address] [id number] [place] [address]- 3150 Nov, [facility] [place] [facility] [address] [id number] [place] [address]- 5595 Nov, [facility] [place] [facility] [address] [id number] [place] [address]- 8405 Nov, [facility] [place] [facility] [address] [id number] [place] [address]- 6518 Nov, [facility] [place] [facility] [address] [id number] [place] [address] Nov, [facility] [place] [facility] [address] [id number] [place] [address] Oct, [facility] [place] [facility] [address] [id number] [place] [address] Oct, [facility] [place] [facility] [address] [id number] [place] [address] Oct, [facility] [place] [facility] [address] [id number] [place] [address] Sep, [facility] [address] [id number] [place] [address] Sep, [facility] [place] [facility] [address] [id number] [place] [address] Sep, [facility] [address] [id number] [place] [address] August, [facility] [place] [facility] [address] [id number] [place] [address] August, [facility] [address] [id number] [place] [address] August, [facility] [address] [id number] [place] [address] August, [facility] [address] [id number] [place] [address] August, [facility] [address] [id number] [place] [address] August, [facility] [address] [id number] [place] [address] Jul, [facility] [address] [id number] [place] [address] Jul, [facility] [place] [facility] [address] [id number] [place] [address] Jul, [facility] [place] [facility] [address] [id number] [place] [address] Jul, [facility] [place] [facility] [address] [id number] [place] [address]783 Jul, [facility] [place] [facility] [address] [id number] [place] [address] 39[address] Jul, [facility] [place] [facility] [address] [id number] [place] [address] 2012 [facility] [place] [facility] [address] [id number] [place] [address] 20 Jun, 2012 [facility] [place] [facility] [address] [id number] [place] [address]- 1736 18 Jun, 2012 [facility] [place] [facility] [address] [id number] [place] [address]- [address] 14 Jun, 2012 [facility] [place] [facility] [address] [id number] [place] [address] 79[address] 04 Jun, 2012 [facility] [place] [facility] [address] [id number] [place] [address]79 13 May, 2012 [facility] [place] [facility] [address] [id number] [place] [address] 12 May, 2012 [facility] [place] [facility] [address] [id number] [place] [address] May, [facility] [place] [facility] [address] [id number] [place] [address] 08 May, 2012 [facility] [place] [facility] [address] [id number] [place] [address] Apr, [facility] [place] [facility] [address] [id number] [place] [address] 46[address] Apr, [facility] [place] [facility] [address] [id number] [place] [address] 15[address] Apr, [facility] [place] [facility] [address] [id number] [place] [address] 224[address] Mar, [facility] [place] [facility] [address] [id number] [place] [address]66 Mar, [facility] [place] [facility] [address] [id number] [place] [address] 28[address] Mar, [facility] [place] [facility] [address] [id number] [place] [address] Mar, [facility] [place] [facility] [address] [id number] [place] [address] Mar, [facility] [address] [id number] [place] [address] Mar, [facility] [place] [facility] [address] [id number] [place] [address] 8[address] Mar, [facility] [address] [id number] [place] [address] 7[address] Mar, [facility] [place] [facility] [address] [id number] [place] [address] 6[address] Feb, [facility] [address] [id number] [place] [address] Feb, [facility] [place] [facility] [address] [id number] [place] [address] 1546 Feb, [facility] [address] [id number] [place] [address] Feb, [facility] [address] [id number] [place] [address] Feb, [facility] [place] [facility] [address] [id number] [place] [address]- 5146 Feb, [facility] [address] [id number] [place] [address] 78[address] Feb, [facility] [place] [facility] [address] [id number] [place] [address]- 8484 Feb, [facility] [place] [facility] [address] [id number] [place] [address] 76[address] Feb, [facility] [place] [facility] [address] [id number] [place] [address] 1745 Feb, [facility] [place] [facility] [address] [id number] [place] [address]- 3[address] Feb, [facility] [place] [facility] [address] [id number] [place] [address]- 9963 Feb, [facility] [place] [facility] [address] [id number] [place] [address]- 6092 Feb, [facility] [place] [facility] [address] [id number] [place] [address] 69[address] Feb, [facility] [place] [facility] [address] [id number] [place] [address] Feb, [facility] [place] [facility] [address] [id number] [place] [address] 52[address] Feb, [facility] [place] [facility] [address] [id number] [place] [address]- 0735 Feb, [facility] [place] [facility] [address] [id number] [place] [address]- 0485 Feb, [facility] [place] [facility] [address] [id number] [place] [address] 7398 Jan, [facility] [place] [facility] [address] [id number] [address] Jan, [facility] [place] [facility] [address] [id number] [place] [address]- 5270 Jan, [facility] [place] [facility] [address] [facility] [id number], [place] [address] 94[address] Jan, [facility] [place] [facility] [address] [facility] [id number], [place] [address] Jan, [facility] [place] [facility] [address] [id number], [place] [address]- [address]97 19 Jan, 2012 [facility] [place] [facility] [address] [id number], [place] [address]- [address] 18 Jan, 2012 [facility] [place] [facility] [address] [id number], [place] [address] 27[address] 18 Jan, 2012 [facility] [place] [facility] [address] [facility] [id number], [place] [address] 29[address] 15 Jan, 2012 [facility] [place] [facility] [address] [id number] [address] 15 Jan, 2012 [facility] [place] [facility] [address] [id number] [place] [address]- 8337 11 Jan, 2012 [facility] [place] [facility] [address] [id number] [place] [address] 11 Jan, 2012 [facility] [place] [facility] [address] [facility] [id number] [place] [address] 10 Jan, 2012 [facility] [place] [facility] [address] [id number] [place] [address] 09 Jan, 2012 [facility] [place] [facility] [address] [id number] [place] [address], [place] [address] 02 Jan, 2012 [facility] [place] [facility] [address] [id number] [place] [address] 1490 29 Dec, 2011 [facility] [place] [facility] [address] [id number] [place] [address], [place] [address] 28 Dec, 2011 [facility] [place] [facility] [address] [id number] [place] [address] 27 Dec, 2011 [facility] [place] [facility] [address] [id number] [place] [place] [address] 26 Dec, 2011 [facility] [place] [facility] [address] [facility] [id number] [place] [address] 79[address] 24 Nov, 2011 [facility] [place] [facility] [address] [id number] [place] [address] Nov, [facility] [place] [facility] [address] [id number] [address] Nov, [facility] [place] [facility] [address] [id number] [place] [address] 6[address] Nov, [facility] [place] [facility] [address] [facility] [id number] [place] [address]- [address] Nov, [facility] [place] [facility] [address] [facility] [id number] [place] [address]- 2813 13 Nov, 2011 [facility] [place] [facility] [address] [id number] [place] [address] 89[address] Nov, [facility] [place] [facility] [address] [id number] [place] [address]- [address] Nov, [facility] [place] [facility] [address] [id number] [facility] [place] [address] 2546 Nov, [facility] [place] [facility] [address] [id number] [place] [address] 89[address] Nov, [facility] [place] [facility] [address] [id number] [place] [address] 8666 Nov, [facility] [place] [facility] [address] [id number] [place] [address]- 2452 Oct, [facility] [place] [facility] [address] [id number] [place] [address]- 1816 Oct, [facility] [place] [facility] [address] [id number] [place] [address]- 5196 Oct, [facility] [place] [facility] [address] [id number] [place] [address]- 0712 Oct, [facility] [place] [facility] [address] [id number] [place] [address]- 9763 Oct, [facility] [place] [facility] [address] [id number] [place] [address]- 6821 Oct, [facility] [place] [facility] [address] [id number] [place] [address]- 2133 Oct, [facility] [place] [facility] [address] [id number] [place] [address]- 2739 Oct, [facility] [place] [facility] [address] [id number] [place] [address]- 3855 Sep, [facility] [place] [facility] [address] [id number] [place] [address]- 7681 Sep, [facility] [place] [facility] [address] [id number] [place] [address]- 1509 Sep, [facility] [address] [id number] [place] [address]- 4356 Sep, [facility] [place] [facility] [address] [id number] [place] [address]- 1555 Sep, [facility] [place] [facility] [address] [id number] [place] [address]- 5018 Sep, [facility] [place] [facility] [address] [id number] [place] [address]- 2337 Sep, [facility] [place] [facility] [address] [id number] [place] [address]- 7280 August, [facility] [place] [facility] [address] [id number] [place] [address]- 6166 August, [facility] [place] [facility] [address] [id number] [place] [address]- 9447 August, [facility] [place] [facility] [address] [id number] [place] [address] 5998 August, [facility] [place] [facility] [address] [id number] [place] [address]- 5399 August, [facility] [place] [facility] [address] [id number] [place] [address]- 0546 August, [facility] [place] [facility] [address] [id number] [place] [address]- 2076 August, [facility] [place] [facility] [address] [id number] [place] [address]- 6814 August, [facility] [place] [facility] [address] [id number] [place] [address]- 0359 Jul, [facility] [place] [facility] [address] [id number] [place] [address]- 1186 17 Jul, 2011 [facility] [place] [facility] [address] [id number] [place] [address]- 3563 Jul, [facility] [place] [facility] [address] [id number] [place] [address]- 7776 11 Jul, 2011 [facility] [place] [facility] [address] [id number] [place] [address]- 3388 05 Jul, 2011 [facility] [place] [facility] [address] [id number] [place] [address]- 0186 28 Jun, 2011 [facility] [place] [facility] [address] [id number] [place] [address]- 8194 2011 [facility] [place] [facility] [address] [id number] [place] [address]- 5187 20 Jun, 2011 [facility] [place] [facility] [address] [id number] [place] [address]- 4933 19 Jun, 2011 [facility] [place] [facility] [address] [id number] [place] [address]- 1266 Jun, [facility] [place] [facility] [address] [id number] [place] [address]- 8756 Jun, [facility] [place] [facility] [address] [id number] [place] [address]- 0895 Jun, [facility] [place] [facility] [address] [id number] [place] [address]- 6763 Jun, [facility] [place] [facility] [address] [facility] [id number] [place] [address]- 8510 Jun, [facility] [place] [facility] [address] [id number] [place] [address] 6947 May, [facility] [place] [facility] [address] [id number] [place] [address]- 8937 24 May, 2011 [facility] [place] [facility] [address] [id number] [place] [address]- 3931 May, [facility] [place] [facility] [address] [id number] [place] [address]- 4456 May, [facility] [place] [facility] [address] [facility] [id number] [place] [address]- 5762 11 May, 2011 [facility] [address] [id number] [place] [address]- 6994 10 May, 2011 [facility] [place] [facility] [address] [id number] [place] [address]- 4366 07 May, 2011 [facility] [address] [id number] [place] [address]- 2246 May, [facility] [address] [id number] [place] [address]- 0906 Apr, [facility] [address] [id number] [place] [address]- 5947 Apr, [facility] [address] [id number] [place] [address]- 3076 Apr, [facility] [address] [id number] [place] [address]- 1049 Apr, [facility] [address] [id number] [place] [address]- 3450 Apr, [facility] [address] [id number] [place] [address]- 8885 Apr, [facility] [address] [id number] [place] [address]- 7393 Mar, [facility] [address] [id number] [place] [address]- 8510 Mar, [facility] [place] [facility] [address] [id number] [place] [address]- 1465 Mar, [facility] [place] [facility] [address] [id number] [place] [address]- 0110 19 Mar, 2011 [facility] [place] [facility] [address] [id number] [place] [address]- 9456 15 Mar, 2011 [facility] [place] [facility] [address] [id number] [place] [address]- 0181 13 Mar, 2011 [facility] [place] [facility] [address] [id number] [place] [address]- 2867 13 Mar, 2011 [facility] [place] [facility] [address] [id number] [place] [address]- 6576 Mar, [facility] [place] [facility] [address] [id number] [place] [address] Mar, [facility] [place] [facility] [address] [id number] [place] [address]- 6816 Mar, [facility] [place] [facility] [address] [id number] [place] [address]- 2685 Mar, [facility] [place] [facility] [address] [id number] [place] [address]- 9122 Mar, [facility] [place] [facility] [address] [id number] [place] [address]- 8129 Mar, [facility] [place] [facility] [address] [facility] [id number] [place] [address]- 3923 Feb, [facility] [place] [facility] [address] [id number] [place] [address]- 7346 Feb, [facility] [place] [facility] [address] [facility] [id number] [place] [address]- 0855 Feb, [facility] [place] [facility] [address] [facility] [id number] [place] [address]- 2106 Feb, [facility] [place] [facility] [address] [facility] [id number] [place] [address]- 5529 Feb, [facility] [place] [facility] [address] [id number], [place] [address]- 3964 Feb, [facility] [place] [facility] [address] [id number] [place] [address]- 8283 Feb, [facility] [place] [facility] [address] [facility] [id number] [place] [address]- 4591 Jan, [facility] [place] [facility] [address] [id number] [address]- 9562 Jan, [facility] [place] [id number] [address] 125[address] Jan, [facility] [place] [id number] [place] [address]- 2930 Nov, [facility] [place] [id number] [address]- 4487 Mar, [facility] [place] [id number] [place] [address]- 8113 Mar, [facility] [place] [id number] [place] [address] 180186- 8604 Mar, [facility] [place] [id number] [place] [address]84- 4976 Mar, [facility] [place] [id number] [place] [address]- 4148 Mar, [facility] [place] [id number] [place] [address] 16054- 6035 Feb, [facility] [place] [address] [address] Feb, [facility] [place] [id number] [place] [address] 512087- 7580 Feb, [facility] [place] [address] [address]- 3295 Feb, [facility] [place] [address] [address]- 2616 Feb, [facility] [place] [address] [id number] [address]- 7427 Feb, IMMUNIZATIONS No Known Immunizations SOCIAL HISTORY Never Assessed REASON FOR VISIT knee injection - Has fallen twice this month and wants xrays done from the waist down to her feet. Feels as if someone is squishing her feet together, causing a lot of pain. - Mariana HAWKINS, Wants a script for a cane due to when she gets down she can not get up alone., Pt stopped taking the Neurontin due to causing her memory loss. PLAN OF CARE Activity Details Follow Up 4 Weeks Reason:knee pain VITAL SIGNS Height 60 in 2016-10-12 Weight 207.9 lbs 2016-10-12 Temperature 98.6 degrees Fahrenheit 2016-10-12 Heart Rate 104 bpm 2016-10-12 Respiratory Rate 20 2016-10-12 BMI 40.60 kg/m2 2016-10-12 Blood pressure systolic 140 mmHg 2016-10-12 Blood pressure diastolic 80 mmHg 2016-10-12 MEDICATIONS Medication Instructions Dosage Frequency Start Date End Date Duration Status Hydrocodone-Acetaminophen 5-325 MG Orally every 6 hrs 1 tablet as needed 6h Active Pramipexole Dihydrochloride 0.25 MG Orally Once a day TAKE 3 TABLETS BY MOUTH AT BEDTIME 24h 30 days Active Lisinopril 5 mg Orally Once a day 1 tablet 24h August, 30 day(s) Active Singulair 10 mg Orally Once a day 1 tablet in the evening 24h August, Active Ibuprofen 600 MG Orally every 6 hrs 1 tablet as needed for pain 6h Nov, 30 days Active Cephalexin 500 mg Orally every 6 hrs 1 capsule 6h Active Cane 1 as directed Sep, Active Exemestane 25 MG Orally Once a day 1 tablet with a meal 24h Active Amitriptyline HCl 100 mg Orally Once at bedtime for sleep 1 tablet Apr Active TENS Unit 1 APPLY TO THE BACK 24h May, Active PredniSONE 20 mg Orally Once a day 1 tid x 3, bid x 3, d x 3 24h Sep, Oct, 10 days Active Albuterol Sulfate (2.5 MG/3ML) 0.083% Inhalation every 4-6 hours as needed for cough or wheeze 3 ml Jan, Active Albuterol Sulfate 90 mcg/actuation 2 puffs by Inhalation route every 4-6 hours as needed PRN cough or wheezing Oct, Active Symbicort 160-4.5 MCG/ACT Inhalation Twice a day 2 puffs 12h May, Active Meclizine HCl 12.5 MG Orally Once a day 2 tablets as needed 24h August, 30 day(s) Active Lyrica 100 mg Orally Twice a day 1 capsule 12h August, Active Oxygen 2 L/NC subcutaneously at night only as directed Jul, Active Diazepam 5 mg Orally 4 times a day PRN 1 tablet as needed Active VESIcare 5 mg Orally Once a day 1 tablet 24h August, Nov, Active Requip 4 MG Orally Once a day as directed 24h Feb, 30 days Active Omeprazole 20 mg Orally 2 times a day TAKE 1 CAPSULE BY MOUTH TWICE DAILY 12h Active Diltiazem HCl 120 MG Orally daily TAKE 1 TABLET BY MOUTH 2 TIMES A DAY 24h Active RESULTS Name Result Date Reference Range Xray : Knee, Right 3 views (IN HOUSE) 2016-10-12 PROCEDURES Procedure Date Ordered Result Body Site X-RAY EXAM OF KNEE, 3 October 12, 2016 [facility] V[facility] EST[facility]LISHED PATIENT October 12, 2016 [facility] V[facility] EST[facility] PATIENT October 12, 2016 INSTRUCTIONS MEDICATIONS ADMINISTERED No Known Medications MEDICAL [...]
--- OUTSIDE RECORDS SUMMARY | 2017-08-08 00:02 | XMS REPORT ---
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 [address] [id number] [place] [address]- 5958 Jun, [facility] [place] [facility] [address] [id number] [place] [address]- 8141 Jun, 2014 [facility] [place] [facility] [address] [id number] [place] [address]- 7141 Jun, 2014 [facility] [place] [facility] [address] [id number] [place] [address]- 3380 Jun, [facility] [place] [facility] [address] [facility] [id number] [place] [address]- 1527 Jun, [facility] [place] [facility] [address] [facility] [id number] [place] [address]- 2706 Jun, [facility] [place] [facility] [address] [facility] [id number] [place] [address]- 3381 Jun, [facility] [place] [facility] [address] [facility] [id number] [place] [address]- 5548 May, 2014 [facility] [place] [facility] [address] [facility] [id number] [place] [address]- 7162 May, 2014 [facility] [place] [facility] [address] [facility] [id number] [place] [address]- 7245 May, 2014 [facility] [place] [facility] [address] [id number] [place] [address]- 8588 May, [facility] [place] [facility] [address] [id number] [place] [address]- 5521 May, 2014 [facility] [place] [facility] [address] [facility] [id number] [place] [address]- 3871 May, 2014 [facility] [place] [facility] [address] [facility] [id number] [address]- 0398 May, 2014 [facility] [place] [facility] [address] [id number] [place] [address]- 5096 May, 2014 [facility] [place] [facility] [address] [id number] [place] [address]- 3256 May, 2014 [facility] [place] [facility] [address] [facility] [id number] [place] [address]- 3566 May, 2014 [facility] [place] [facility] [address] [id number] [place] [address]- 4411 May, 2014 [facility] [place] [facility] [address] [id number] [place] [address]- 2275 May, 2014 [facility] [place] [facility] [address] [facility] [id number] [place] [address]- 0635 May, 2014 [facility] [place] [facility] [address] [facility] [id number] [place] [address]- 8926 May, 2014 [facility] [place] [facility] [address] [facility] [id number] [place] [address]- 8966 May, [facility] [place] [facility] [address] [id number] [place] [address]- 4903 May, [facility] [place] [facility] [address] [facility] [id number] [place] [address]- 9622 Apr, [facility] [place] [facility] [address] [facility] [id number] [place] [address]- 7838 Apr, [facility] [place] [facility] [address] [id number] [place] [address]- 2541 Apr, [facility] [place] [facility] [address] [facility] [id number] [place] [address]- 4781 Apr, [facility] [place] [facility] [address] [facility] [id number] [place] [address]- 9842 Apr, [facility] [place] [facility] [address] [facility] [id number] [place] [address]- 4050 Apr, [facility] [place] [facility] [address] [id number] [place] [address]- 1948 Apr, [facility] [place] [facility] [address] [id number] [place] [address]- 1141 Apr, [facility] [place] [facility] [address] [id number] [place] [address]- 0781 Apr, [facility] [place] [facility] [address] [id number] [place] [address]- 9297 Apr, [facility] [place] [facility] [address] [id number] [place] [address]- 5210 Apr, [facility] [place] [facility] [address] [id number] [place] [address]- 7867 Apr, [facility] [place] [facility] [address] [id number] [place] [address]- 9048 Apr, [facility] [place] [facility] [address] [id number] [place] [address]- 8417 Apr, [facility] [place] [facility] [address] [id number] [place] [address]- 0778 Apr, [facility] [place] [facility] [address] [id number] [place] [address]- 5640 Mar, [facility] [place] [facility] [address] [id number] [place] [address]- 8397 Mar, [facility] [place] [facility] [address] [id number] [place] [address]- 6109 Mar, [facility] [place] [facility] [address] [id number] [place] [address]- 5882 Mar, [facility] [place] [facility] [address] [id number] [place] [address]- 6507 Mar, [facility] [place] [facility] [address] [id number] [place] [address]- 8550 Mar, [facility] [place] [facility] [address] [id number] [place] [address]- 3874 15 Mar, 2014 [facility] [place] [facility] [address] [id number] [place] [address]- 4953 15 Mar, 2014 [facility] [place] [facility] [address] [id number] [place] [address]- 1706 15 Mar, 2014 [facility] [place] [facility] [address] [id number] [place] [address]- 9834 15 Mar, 2014 [facility] [place] [facility] [address] [id number] [place] [address]- 5376 15 Mar, 2014 [facility] [place] [facility] [address] [id number] [place] [address]- 3177 15 Mar, 2014 [facility] [place] [facility] [address] [id number] [place] [address]- 3096 12 Mar, 2014 [facility] [place] [facility] [address] [id number] [place] [address]- 9573 12 Mar, 2014 [facility] [place] [facility] [address] [id number] [place] [address]- 9797 Mar, [facility] [place] [facility] [address] [id number] [place] [address]- 9021 Mar, [facility] [place] [facility] [address] [id number] [place] [address]- 6798 Mar, [facility] [place] [facility] [address] [id number] [place] [address]- 3463 Mar, [facility] [place] [facility] [address] [id number] [place] [address]- 2675 Feb, [facility] [place] [facility] [address] [id number] [place] [address]- 7602 Feb, [facility] [place] [facility] [address] [id number] [place] [address]- 0995 Feb, [facility] [place] [facility] [address] [id number] [place] [address]- 1710 Feb, [facility] [place] [facility] [address] [id number] [place] [address]- 9229 Feb, [facility] [place] [facility] [address] [id number] [place] [address]- 9758 Feb, [facility] [place] [facility] [address] [id number] [place] [address]- 2431 Feb, [facility] [place] [facility] [address] [id number] [place] [address]- 3720 Feb, [facility] [place] [facility] [address] [id number] [place] [address]- 1540 Jan, [facility] [place] [facility] [address] [id number] [place] [address]- 0268 Jan, [facility] [place] [facility] [address] [id number] [place] [address]- 1460 Jan, [facility] [place] [facility] [address] [id number] [place] [address]- 6054 Jan, [facility] [place] [facility] [address] [id number] [place] [address]- 3125 Jan, [facility] [place] [facility] [address] [id number] [place] [address]- 9585 Jan, [facility] [place] [facility] [address] [id number] [place] [address]- 8378 Jan, [facility] [place] [facility] [address] [id number] [place] [address]- 0558 Jan, [facility] [place] [facility] [address] [id number] [place] [address]- 8647 Jan, [facility] [place] [facility] [address] [id number] [place] [address]- 2477 Jan, [facility] [place] [facility] [address] [id number] [place] [address]- 1093 Jan, [facility] [place] [facility] [address] [id number] [place] [address]- 8084 Jan, [facility] [place] [facility] [address] [id number] [place] [address]- 8167 Jan, [facility] [place] [facility] [address] [id number] [place] [address]- 4674 Jan, [facility] [place] [facility] [address] [id number] [place] [address]- 1955 16 Jan, 2014 [facility] [place] [facility] [address] [id number] [place] [address]- 8580 16 Jan, 2014 [facility] [place] [facility] [address] [id number] [place] [address]- 0354 Jan, [facility] [place] [facility] [address] [id number] [place] [address]- 8178 Jan, [facility] [place] [facility] [address] [id number] [place] [address]- 9158 29 Dec, 2013 [facility] [place] [facility] [address] [id number] [place] [address]- 9208 29 Dec, 2013 [facility] [place] [facility] [address] [id number] [place] [address]- 3816 26 Dec, 2013 [facility] [place] [facility] [address] [id number] [place] [address]- 1548 26 Dec, 2013 [facility] [place] [facility] [address] [id number] [address]- 7474 26 Dec, 2013 [facility] [place] [facility] [address] [id number], [place] [address] 26 Sep, 2013 [facility] [place] [facility] [address] [id number] [place] [address] 2540 23 Dec, 2013 [facility] [place] [facility] [address] [id number] [place] [address]42 23 Dec, 2013 [facility] [place] [facility] [address] [id number] [place] [address] 2547 22 Dec, 2013 [facility] [place] [facility] [address] [id number] [place] [address]61 22 Dec, 2013 [facility] [place] [facility] [address] [id number] [place] [address] 2546 16 Dec, 2013 [facility] [place] [facility] [address] [id number] [place] [address] 2546 16 Dec, 2013 [facility] [place] [facility] [address] [id number] [place] [address] 2546 15 Dec, 2013 [facility] [place] [facility] [address] [id number] [place] [address] 2542 15 Dec, 2013 [facility] [place] [facility] [address] [id number] [place] [address] 69[address] 09 Dec, 2013 [facility] [place] [facility] [address] [id number] [place] [address] Dec, 2013 [facility] [place] [facility] [address] [id number] [place] [address] Dec, 2013 [facility] [place] [facility] [address] [id number] [place] [address] 139[address] Nov, [facility] [place] [facility] [address] [id number] [place] [address] Nov, [facility] [place] [facility] [address] [id number] [place] [address] 7006 Nov, [facility] [place] [facility] [address] [id number] [place] [address] 2547 Nov, [facility] [place] [facility] [address] [id number] [place] [address] 4398 Nov, [facility] [place] [facility] [address] [id number] [place] [address] 1374 Nov, [facility] [place] [facility] [address] [id number] [place] [address] 9[address] Nov, [facility] [place] [facility] [address] [id number] [place] [address] 49[address] Nov, [facility] [place] [facility] [address] [id number] [place] [address]- [address]111 Nov, [facility] [place] [facility] [address] [id number] [place] [address]- 0667 Nov, [facility] [place] [facility] [address] [id number] [place] [address]- 0[address] Nov, [facility] [place] [facility] [address] [id number] [place] [address]- 0834 Nov, [facility] [place] [facility] [address] [id number] [place] [address] 1553 Nov, [facility] [place] [facility] [address] [id number] [place] [address] 4706 Nov, [facility] [place] [facility] [address] [id number] [place] [address] 8125 Nov, [facility] [place] [facility] [address] [id number] [place] [address]- 7951 Nov, [facility] [place] [facility] [address] [id number] [place] [address]- 8883 Nov, [facility] [place] [facility] [address] [id number] [place] [address] 72[address] Nov, [facility] [place] [facility] [address] [id number] [place] [address] 4008 Nov, [facility] [place] [facility] [address] [id number] [place] [address] 3605 Nov, [facility] [place] [facility] [address] [id number] [place] [address] 4348 Nov, [facility] [place] [facility] [address] [id number] [place] [address] 4696 Oct, [facility] [place] [facility] [address] [id number] [place] [address] 3610 Oct, [facility] [place] [facility] [address] [id number] [place] [address] 7470 Oct, [facility] [place] [facility] [address] [id number] [place] [address] 9408 Oct, [facility] [place] [facility] [address] [id number] [place] [address] 9739 Oct, [facility] [place] [facility] [address] [id number] [place] [address]- 5205 Oct, [facility] [place] [facility] [address] [id number] [place] [address]- 6410 Oct, [facility] [place] [facility] [address] [id number] [place] [address] 8804 Oct, [facility] [place] [facility] [address] [id number] [place] [address] 8567 Oct, [facility] [place] [facility] [address] [id number] [place] [address] 1543 Oct, [facility] [place] [facility] [address] [id number] [place] [address] 6993 Oct, [facility] [place] [facility] [address] [id number] [place] [address]- 7685 Oct, [facility] [place] [facility] [address] [id number] [place] [address] 3989 Oct, [facility] [place] [facility] [address] [id number] [place] [address] 0499 Oct, [facility] [place] [facility] [address] [id number] [place] [address]- 5560 Oct, [facility] [place] [facility] [address] [id number] [place] [address]- 6890 Sep, [facility] [place] [facility] [address] [id number] [place] [address]- 1420 Sep, [facility] [place] [facility] [address] [id number] [place] [address]- 7286 Sep, [facility] [place] [facility] [address] [id number] [place] [address]- 8268 25 Sep, 2013 [facility] [place] [facility] [address] [id number] [place] [address]- 2420 Sep, [facility] [place] [facility] [address] [id number] [place] [address]- 6542 20 Sep, 2013 [facility] [place] [facility] [address] [id number] [place] [address]- 9888 18 Sep, 2013 [facility] [place] [facility] [address] [id number] [place] [address]- 2087 18 Sep, 2013 [facility] [place] [facility] [address] [id number] [place] [address]- 6696 17 Sep, 2013 [facility] [place] [facility] [address] [id number] [place] [address]- 1456 16 Sep, 2013 [facility] [place] [facility] [address] [id number] [place] [address]- 4212 16 Sep, 2013 [facility] [place] [facility] [address] [id number] [place] [address]- 9591 16 Sep, 2013 [facility] [place] [facility] [address] [id number] [place] [address]- 8394 Sep, [facility] [place] [facility] [address] [id number] [place] [address]- 6135 Sep, [facility] [place] [facility] [address] [id number] [place] [address]- 6368 Sep, [facility] [place] [facility] [address] [id number] [place] [address]- 2491 09 Sep, 2013 [facility] [facility] [address] [id number] [place] [address] 09 Sep, 2013 [facility] [place] [facility] [address] [id number] [place] [address] 04 Sep, 2013 [facility] [place] [facility] [address] [id number] [place] [address] 9[address] Sep, [facility] [place] [facility] [address] [id number] [place] [address] 8107 Sep, [facility] [place] [facility] [address] [id number] [place] [address]- 7842 Sep, [facility] [place] [facility] [address] [id number] [place] [address] 9889 Sep, [facility] [place] [facility] [address] [id number] [place] [address] 7674 August, [facility] [place] [facility] [address] [id number] [place] [address] 67[address] August, [facility] [place] [facility] [address] [id number] [place] [address] 5541 August, [facility] [place] [facility] [address] [id number] [place] [address]- 0949 August, [facility] [place] [facility] [address] [id number] [place] [address]- 1047 August, [facility] [place] [facility] [address] [id number] [place] [address] 8144 August, [facility] [place] [facility] [address] [id number] [place] [address]- 0548 August, [facility] [place] [facility] [address] [id number] [place] [address]- 8124 August, [facility] [place] [facility] [address] [id number] [place] [address]- 9550 August, [facility] [place] [facility] [address] [id number] [place] [address]- 7013 August, [facility] [place] [facility] [address] [id number] [place] [address]- 5618 August, [facility] [place] [facility] [address] [id number] [place] [address]- 8055 August, [facility] [place] [facility] [address] [id number] [place] [address]- 6081 August, [facility] [place] [facility] [address] [id number] [place] [address]- 5230 August, [facility] [place] [facility] [address] [id number] [place] [address]- 9517 August, [facility] [place] [facility] [address] [id number] [place] [address]- 1454 August, [facility] [place] [facility] [address] [id number] [place] [address]- 0946 August, [facility] [place] [facility] [address] [id number] [place] [address]- 6344 August, [facility] [place] [facility] [address] [id number] [place] [address]- 2943 Jul, [facility] [place] [facility] [address] [id number] [place] [address]- 0459 Jul, [facility] [place] [facility] [address] [id number] [place] [address]- 2421 Jul, [facility] [place] [facility] [address] [id number] [place] [address] 1931 Jul, [facility] [place] [facility] [address] [id number] [place] [address]- 0570 Jul, [facility] [place] [facility] [address] [id number] [place] [address]- 4922 Jul, [facility] [place] [facility] [address] [id number] [place] [address]- 7004 Jul, [facility] [place] [facility] [address] [id number] [place] [address]- 5048 Jul, [facility] [place] [address] [id number] [place] [address]- 4147 Jul, [facility] [place] [facility] [address] [id number] [place] [address]- 6746 Jul, [facility] [place] [facility] [address] [id number] [place] [address]- 8546 21 Jul, 2013 [facility] [address] [id number] [place] [address]- 5727 18 Jul, 2013 [facility] [place] [facility] [address] [id number] [place] [address]- 6631 18 Jul, 2013 [facility] [place] [facility] [address] [id number] [place] [address]- 7553 17 Jul, 2013 [facility] [place] [facility] [address] [id number] [place] [address]- 9387 17 Jul, 2013 [facility] [place] [facility] [address] [id number] [place] [address]- 8040 17 Jul, 2013 [facility] [place] [facility] [address] [id number] [place] [address]- 4752 17 Jul, 2013 [facility] [place] [address] [id number] [place] [address]- 1674 16 Jul, 2013 [facility] [place] [address] [id number] [place] [address]- 7400 16 Jul, 2013 [facility] [place] [address] [id number] [place] [address]- 4212 15 Jul, 2013 [facility] [place] [address] [id number] [place] [address]- 5864 15 Jul, 2013 [facility] [address] [id number] [place] [address]- 6143 14 Jul, 2013 [facility] [address] [id number] [place] [address]- 7431 14 Jul, 2013 [facility] [place] [address] [id number] [place] [address]- 3775 12 Jul, 2013 [facility] [address] [id number] [place] [address]- 5273 12 Jul, 2013 [facility] [address] [id number] [place] [address]- 1609 Jul, [facility] [address] [id number] [place] [address]- 0436 Jul, [facility] [place] [address] [id number] [place] [address]- 5926 Jul, [facility] [address] [id number] [place] [address]- 1254 Jul, [facility] [address] [id number] [place] [address]- 8470 Jun, [facility] [address] [id number] [place] [address]- 4649 17 Jun, 2013 [facility] [address] [id number] [place] [address]- 2901 17 Jun, 2013 [facility] [address] [id number] [place] [address]- 7955 17 Jun, 2013 [facility] [address] [id number] [place] [address]- 2849 Jun, [facility] [address] [id number] [place] [address]- 9966 13 Jun, 2013 [facility] [address] [id number] [place] [address]- 4982 11 Jun, 2013 [facility] [address] [id number] [place] [address]- 5108 11 Jun, 2013 [facility] [address] [id number] [place] [address]- 3663 10 Jun, 2013 [facility] [address] [id number] [place] [address]- 3809 10 Jun, 2013 [facility] [address] [id number] [place] [address]- 6677 04 Jun, 2013 [facility] [address] [id number] [place] [address]- 2591 04 Jun, 2013 [facility] [address] [id number] [place] [address]- 4744 May, [facility] [address] [id number] [place] [address]- 6635 May, [facility] [address] [id number] [place] [address]- 8026 May, [facility] [address] [id number] [place] [address]- 7075 May, [facility] [address] [id number] [place] [address]- 4113 May, [facility] [address] [id number] [place] [address]- 8218 May, [facility] [address] [id number] [place] [address]- 6666 May, [facility] [address] [id number] [place] [address]- 9532 May, [facility] [address] [id number] [place] [address]- 7477 May, [facility] [address] [facility] [id number] [place] [address]- 8207 May, [facility] [address] [facility] [id number] [place] [address]- 4651 Apr, [facility] [address] [id number] [place] [address]- 1396 Apr, [facility] [address] [id number] [place] [address]- 0777 Apr, [facility] [address] [id number] [place] [address]- 5077 Apr, [facility] [address] [id number] [place] [address]- 0484 Apr, [facility] [address] [id number] [place] [address]- 2546 Apr, [facility] [address] [id number] [place] [address]- 3091 Apr, [facility] [address] [id number] [place] [address]- 3852 Apr, [facility] [address] [id number] [place] [address]- 2654 Apr, [facility] [address] [id number] [place] [address]- 7160 Apr, [facility] [address] [id number] [place] [address]- 8771 Mar, [facility] [address] [id number] [place] [address]- 6525 Mar, [facility] [address] [id number] [place] [address]- 7185 Mar, [facility] [address] [id number] [place] [address]- 1480 Mar, [facility] [address] [id number] [place] [address]- 4196 Mar, [facility] [address] [id number] [place] [address]- 2844 Mar, [facility] [address] [id number] [place] [address]- 2068 Feb, [facility] [address] [id number] [place] [address]- 0073 Feb, [facility] [address] [id number] [place] [address]- 7172 Feb, [facility] [address] [id number] [place] [address]- 4897 Jan, [facility] [address] [id number] [place] [address]- 7721 Jan, [facility] [address] [id number] [place] [address]- 9293 Jan, [facility] [address] [id number] [place] [address]- 6360 Jan, [facility] [address] [id number] [place] [address]- 8516 Jan, [facility] [address] [id number] [place] [address]- 3416 Jan, [facility] [address] [id number] [place] [address]- 4087 Jan, [facility] [address] [id number] [place] [address] Jan, [facility] [address] [id number] [place] [address]- 2958 Jan, [facility] [address] [id number] [place] [address]- 7352 Jan, [facility] [address] [id number] [place] [address]- 4706 30 Dec, 2012 [facility] [address] [id number] [place] [address]- 7215 25 Dec, 2012 [facility] [address] [id number] [place] [address]- 2974 Dec, [facility] [address] [id number] [place] [address] 2544 09 Dec, 2012 [facility] [address] [id number] [place] [address]- 254 05 Dec, 2012 [facility] [address] [id number] [place] [address]- 4349 04 Dec, 2012 [facility] [address] [id number] [place] [address]- 4187 Nov, [facility] [address] [id number] [place] [address]111 Nov, [facility] [address] [id number] [place] [address]- 6455 Nov, [facility] [address] [id number] [place] [address]- 7821 Nov, [facility] [address] [id number] [place] [address]- 1757 Nov, [facility] [address] [id number] [place] [address]- 9018 Nov, [facility] [address] [id number] [place] [address]- 7812 Nov, [facility] [address] [id number] [place] [address]- 3869 Nov, [facility] [address] [id number] [place] [address]- 7871 Nov, [facility] [address] [id number] [place] [address]- 5112 Nov, [facility] [address] [id number] [place] [address]- 8442 Nov, [facility] [address] [id number] [place] [address]- 6618 Nov, [facility] [address] [id number] [place] [address]- 7727 Oct, [facility] [address] [id number], [place] [address]- 8629 Oct, [facility] [address] [id number] [place] [address]- 7139 Oct, [facility] [address] [id number] [place] [address]- 8021 Sep, [facility] [address] [id number] [place] [address]- 2406 Sep, [facility] [address] [id number], [place] [address]- 399[address] Sep, [facility] [address] [id number] [place] [address]- 8924 August, [facility] [address] [id number] [place] [address]- 1759 August[facility] [address] [id number] [place] [address]- 1428 August, [facility] [address] [id number] [place] [address]- 1097 August, [facility] [address] [id number] [place] [address]- 1195 August, [facility] [address] [id number] [place] [address]- 4384 August, [facility] [address] [id number] [place] [address]- 7508 Jul, [facility] [address] [id number] [place] [address]- 1878 Jul, [facility] [address] [id number] [place] [address]- 8536 Jul, [facility] [address] [id number] [place] [address]- 8999 Jul, [facility] [address] [id number] [place] [address]- 7721 Jul, [facility] [address] [id number] [place] [address]- 4860 Jul, [facility] [address] [id number] [place] [address]- 3340 Jun, [facility] [address] [id number] [place] [address]- 0800 Jun, [facility] [address] [id number] [place] [address]- 9065 Jun, [facility] [address] [id number] [place] [address]- 9322 14 Jun, 2012 [facility] [address] [id number] [place] [address]- 1639 04 Jun, 2012 [facility] [place] [facility] [address] [id number] [place] [address]- 7066 13 May, 2012 [facility] [place] [facility] [address] [id number] [place] [address]- 7576 12 May, 2012 [facility] [place] [facility] [address] [id number] [place] [address]- 7754 May, [facility] [place] [facility] [address] [id number] [place] [address]- 5597 08 May, 2012 [facility] [address] [id number] [place] [address]- 4009 Apr, [facility] [address] [id number] [place] [address]- 3671 Apr, [facility] [place] [facility] [address] [id number] [place] [address]- 9242 Apr, [facility] [address] [id number] [place] [address]- 4508 Mar, [facility] [facility] [address] [id number] [place] [address]- 3673 Mar, [facility] [place] [facility] [address] [id number] [place] [address]- 1117 Mar, [facility] [place] [facility] [address] [id number] [place] [address]- 8647 Mar, [facility] [place] [facility] [address] [id number] [place] [address]- 7586 Mar, [facility] [place] [facility] [address] [id number] [place] [address]- 6996 17 Mar, 2012 [facility] [place] [facility] [address] [id number] [place] [address]- 2844 Mar, [facility] [place] [facility] [address] [id number] [place] [address]- 1927 Mar, [facility] [place] [facility] [address] [id number] [place] [address]- 7024 Feb, [facility] [place] [facility] [address] [id number] [place] [address]- 1757 Feb, [facility] [place] [facility] [address] [id number] [place] [address]- 0131 Feb, [facility] [place] [facility] [address] [id number] [place] [address]- 6967 Feb, [facility] [place] [facility] [address] [id number] [place] [address]- 2227 Feb, [facility] [place] [facility] [address] [id number] [place] [address]- 2918 Feb, [facility] [place] [facility] [address] [id number] [place] [address]- 1073 Feb, [facility] [place] [facility] [address] [id number] [place] [address]- 3990 Feb, [facility] [place] [facility] [address] [id number] [place] [address]- 0484 Feb, [facility] [place] [facility] [address] [id number], [place] [address]- 6168 Feb, [facility] [place] [facility] [address] [id number], [place] [address]- 7265 Feb, [facility] [place] [facility] [address] [id number] [place] [address]- 5767 Feb, [facility] [place] [facility] [address] [id number] [place] [address]- 0358 Feb, [facility] [place] [facility] [address] [id number] [place] [address]- 0602 Feb, [facility] [place] [facility] [address] [id number] [place] [address]- 7198 Feb, [facility] [place] [facility] [address] [id number] [place] [address]- 7155 Feb, [facility] [place] [facility] [address] [id number] [place] [address]- 6339 Feb, [facility] [place] [facility] [address] [id number] [place] [address]- 7949 Feb, [facility] [place] [facility] [address] [id number] [place] [address]- 8745 Jan, [facility] [place] [facility] [address] [id number] [place] [address]- 9238 Jan, [facility] [place] [facility] [address] [id number] [place] [address]- 7689 Jan, [facility] [place] [facility] [address] [id number] [place] [address]- 0048 Jan, [facility] [place] [facility] [address] [id number] [place] [address]- 6979 Jan, [facility] [place] [facility] [address] [facility] [id number] [place] [address]- 1668 19 Jan, 2012 [facility] [place] [facility] [address] [facility] [id number] [place] [address]- 3645 18 Jan, 2012 [facility] [place] [facility] [address] [id number] [place] [address]- 3457 18 Jan, 2012 [facility] [place] [facility] [address] [id number], [place] [address]- 4140 15 Jan, 2012 [facility] [place] [facility] [address] [id number] [place] 4450 15 Jan, 2012 [facility] [place] [facility] [address] [facility] [id number] [place] [address]- 3859 Jan, [facility] [place] [facility] [address] [id number] [place] [address]- 8301 Jan, [facility] [place] [facility] [address] [id number] [place] [address] Jan, [facility] [place] [facility] [address] [id number] [place] [address] Jan, [facility] [place] [facility] [address] [id number] [place] [address] Jan, [facility] [place] [facility] [address] [id number] [place] [address] 29 Dec, 2011 [facility] [place] [facility] [address] [id number] [place] [address] 28 Dec, 2011 [facility] [place] [facility] [address] [id number] [place] [address] 27 Dec, 2011 [facility] [place] [facility] [address] [id number] [place] [address] 26 Dec, 2011 [facility] [place] [facility] [address] [id number] [place] [address] Nov, [facility] [place] [facility] [address] [id number] [place] [address] Nov, [facility] [place] [facility] [address] [id number] [place] [address] 9[address] Nov, [facility] [place] [facility] [address] [id number] [place] [address] 7768 Nov, [facility] [place] [facility] [address] [id number], [place] [address] Nov, [facility] [place] [facility] [address] [id number] [place] [address] Nov, [facility] [place] [facility] [address] [id number] [place] [address] 2368 Nov, [facility] [place] [facility] [address] [id number] [place] [address] 47[address] Nov, [facility] [place] [facility] [address] [id number], [place] [address] Nov, [facility] [place] [facility] [address] [id number] [place] [address] 67[address] Nov, [facility] [place] [facility] [address] [id number] [place] [address] 79[address] Nov, [facility] [place] [facility] [address] [id number] [place] [address] Oct, [facility] [place] [facility] [address] [id number] [place] [address] Oct, [facility] [place] [facility] [address] [id number] [place] [address] 9[address] Oct, [facility] [place] [facility] [address] [id number] [place] [address] 98[address] Oct, [facility] [place] [facility] [address] [id number] [place] [address]324 Oct, [facility] [place] [facility] [address] [id number] [place] [address] 8[address] Oct, [facility] [place] [facility] [address] [id number] [place] [address] Oct, [facility] [place] [facility] [address] [id number] [place] [address] Oct, [facility] [place] [facility] [address] [id number] [place] [address]99 Sep, [facility] [place] [facility] [address] [id number] [place] [address] Sep, [facility] [place] [facility] [address] [id number] [place] [address] 4217 Sep, [facility] [place] [facility] [address] [id number] [place] [address] 1783 Sep, [facility] [place] [facility] [address] [id number] [place] [address] 10[address] Sep, [facility] [place] [facility] [address] [id number] [place] [address] 8618 Sep, [facility] [place] [facility] [address] [id number] [place] [address] 65[address] Sep, [facility] [place] [facility] [address] [id number] [place] [address] August, [facility] [place] [facility] [address] [id number] [place] [address] August, [facility] [place] [facility] [address] [id number] [place] [address] August, [facility] [place] [facility] [address] [id number] [place] [address] August, [facility] [place] [facility] [address] [id number] [place] [address] August, [facility] [place] [facility] [address] [id number] [place] [address] August, [facility] [place] [facility] [address] [id number] [place] [address] August, [facility] [place] [facility] [address] [id number] [place] [address]597 August, [facility] [place] [facility] [address] [id number] [place] [address] Jul, [facility] [place] [facility] [address] [id number] [place] [address] 1469 17 Jul, 2011 [facility] [place] [facility] [address] [id number] [place] [address]38 13 Jul, 2011 [facility] [place] [facility] [address] [id number] [place] [address] 98[address] Jul, [facility] [place] [facility] [address] [id number] [place] [address] 05 Jul, 2011 [facility] [place] [facility] [address] [id number] [place] [address] 67[address] 28 Jun, 2011 [facility] [place] [facility] [address] [id number] [place] [address] 2011 [facility] [place] [facility] [address] [id number] [place] [address]- 6916 20 Jun, 2011 [facility] [place] [facility] [address] [id number] [place] [address]206 19 Jun, 2011 [facility] [place] [facility] [address] [id number] [place] [address]- 5295 12 Jun, 2011 [facility] [place] [facility] [address] [id number] [place] [address]- 1005 Jun, [facility] [place] [facility] [address] [id number] [place] [address]- 7042 12 Jun, 2011 [facility] [place] [facility] [address] [facility] [id number] [place] [address]- 5187 07 Jun, 2011 [facility] [place] [facility] [address] [id number] [place] [address]- 6010 06 Jun, 2011 [facility] [place] [facility] [address] [facility] [id number] [place] [address] 8536 27 May, 2011 [facility] [place] [facility] [address] [facility] [id number] [place] [address] 9065 24 May, 2011 [facility] [place] [facility] [address] [facility] [id number] [place] [address]- 4189 23 May, 2011 [facility] [place] [facility] [address] [id number] [place] [address] 6336 23 May, 2011 [facility] [place] [facility] [address] [id number] [place] [address]- 2293 11 May, 2011 [facility] [place] [facility] [address] [facility] [id number] [place] [address]- 3661 10 May, 2011 [facility] [place] [facility] [address] [facility] [id number] [place] [address]- [address]376 07 May, 2011 [facility] [place] [facility] [address] [id number] [place] [address]- 2546 May, [facility] [address] [id number] [place] [address] 4716 Apr, [facility] [place] [facility] [address] [id number] [place] [address]- 2546 Apr, [facility] [address] [id number] [place] [address]- 4076 Apr, [facility] [place] [facility] [address] [id number] [place] [address]- 2546 Apr, [facility] [address] [id number] [place] [address]- 5886 Apr, [facility] [place] [address] [id number] [place] [address]- 2546 Apr, [facility] [address] [id number] [place] [address]- 4498 Mar, [facility] [address] [id number] [place] [address]- 7965 29 Mar, 2011 [facility] [address] [id number] [place] [address]- 8994 26 Mar, 2011 [facility] [address] [id number] [place] [address]- 6728 19 Mar, [address] [facility] [place] [facility] [address] [id number] [place] [address] 2896 15 Mar, [address] [facility] [place] [facility] [address] [id number] [place] [address]- 2546 13 Mar, 2011 [facility] [place] [facility] [address] [id number] [place] [address] 2546 13 Mar, 2011 [facility] [place] [facility] [address] [id number] [place] [address]- 2546 13 Mar, 2011 [facility] [place] [facility] [address] [id number] [place] [address] 6843 Mar, [facility] [place] [facility] [address] [id number] [place] [address]- 1800 Mar, [facility] [place] [facility] [address] [id number] [place] [address]- 1408 Mar, [facility] [place] [facility] [address] [id number] [place] [id number] Mar, [facility] [place] [facility] [address] [id number] [place] [address] Mar, [facility] [place] [facility] [address] [id number] [place] [address] Feb, [facility] [place] [facility] [address] [id number] [place] [address] Feb, [facility] [place] [facility] [address] [id number] [place] [address] Feb, [facility] [place] [facility] [address] [id number] [address] Feb, [facility] [place] [facility] [address] [id number] [place] [address] Feb, [facility] [place] [facility] [address] [facility] [id number], [place] [address] Feb, [facility] [place] [facility] [address] [id number], [place] [address] Feb, [facility] [place] [facility] [address] [id number], [place] [address] Jan, [facility] [place] [facility] [address] [id number], [place] [address] Jan, [facility] [place] [facility] [address] [id number], [place] [address] Jan, [facility] [place] [facility] [address] [facility] [id number], [place] [address] Nov, [facility] [place] [facility] [address] [id number], [place] [address] Mar, [facility] [id number], [place] [address] Mar, [facility] [id number], [place] [address] Mar, [facility] [id number], [place] [address] Mar, [facility] [id number], [place] [address] Mar, [facility] [id number] [place] [address] Feb, [facility] [id number], [place] [address] Feb, [facility] [id number], [place] [address] Feb, [facility] [id number], [place] [address] Feb, [facility] [id number], [place] [address] Feb, [facility] [address] [id number], [place] [address] Feb, IMMUNIZATIONS No Known Immunizations SOCIAL HISTORY Never Assessed REASON FOR VISIT Weight check- Maura HAWKINS PLAN OF CARE VITAL SIGNS Height 60 in 2016-10-19 Weight 208.1 lbs 2016-10-19 BMI 40.64 kg/m2 2016-10-19 MEDICATIONS Unknown Medications RESULTS No Results PROCEDURES [...]
--- OUTSIDE RECORDS SUMMARY | 2017-08-08 00:06 | XMS REPORT ---
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 [facility] [address] [id number] [place] [address]- 2182 23 Jun, 2014 [facility] [place] [facility] [address] [id number] [place] [address]- 5986 19 Jun, 2014 [facility] [place] [facility] [address] [id number] [place] [address]- 3021 19 Jun, 2014 [facility] [place] [facility] [address] [id number] [place] [address]- 0287 19 Jun, 2014 [facility] [place] [facility] [address] [id number] [place] [address]- 0048 19 Jun, 2014 [facility] [place] [facility] [address] [id number] [place] [address]- 8257 18 Jun, 2014 [facility] [place] [facility] [address] [id number] [place] [address]- 8648 18 Jun, 2014 [facility] [place] [facility] [address] [id number] [place] [address]- 7712 18 Jun, 2014 [facility] [place] [facility] [address] [id number] [place] [address]- 7595 18 Jun, 2014 [facility] [place] [facility] [address] [id number] [place] [address]- 5192 17 Jun, 2014 [facility] [place] [facility] [address] [id number] [place] [address]- 6636 17 Jun, 2014 [facility] [place] [facility] [address] [id number] [place] [address]- 9413 17 Jun, 2014 [facility] [place] [facility] [address] [id number] [place] [address]- 9077 17 Jun, 2014 [facility] [place] [facility] [address] [id number] [place] [address]- 7690 13 Jun, 2014 [facility] [place] [facility] [address] [id number] [place] [address]- 8777 13 Jun, 2014 [facility] [place] [facility] [address] [id number] [place] [address]- 4042 Jun, [facility] [place] [facility] [address] [id number] [place] [address]- 3472 Jun, [facility] [place] [facility] [address] [id number] [place] [address]- 7996 10 Jun, 2014 [facility] [place] [facility] [address] [id number] [place] [address]- 9053 Jun, [facility] [place] [facility] [address] [id number] [place] [address]- 4039 Jun, [facility] [place] [facility] [address] [id number] [place] [address]- 9516 Jun, [facility] [place] [facility] [address] [id number] [place] [address]- 4244 Jun, [facility] [place] [facility] [address] [id number] [place] [address]- 2570 Jun, [facility] [place] [facility] [address] [id number] [place] [address]- 3565 Jun, [facility] [place] [facility] [address] [id number] [place] [address]- 9375 Jun, [facility] [place] [facility] [address] [id number] [place] [address]- 4046 Jun, [facility] [place] [facility] [address] [id number] [place] [address]- 3938 Jun, [facility] [place] [facility] [address] [id number] [place] [address]- 7896 May, [facility] [place] [facility] [address] [id number] [place] [address]- 7511 May, [facility] [place] [facility] [address] [id number] [place] [address]- 1746 May, [facility] [place] [facility] [address] [id number] [place] [address]- 3812 May, 2014 [facility] [place] [facility] [address] [id number] [place] [address]- 3486 May, 2014 [facility] [place] [facility] [address] [id number] [place] [address] 2546 May, 2014 [facility] [place] [facility] [address] [id number] [place] [address]- 0632 May, 2014 [facility] [place] [facility] [address] [id number] [place] [address]- 2547 May, 2014 [facility] [place] [facility] [address] [id number] [place] [address]- 2576 May, 2014 [facility] [place] [facility] [address] [facility] [id number] [place] [address]- 2250 May, 2014 [facility] [place] [facility] [address] [facility] [id number] [place] [address]- 3609 May, 2014 [facility] [place] [facility] [address] [facility] [id number] [place] [address]- 8023 May, 2014 [facility] [place] [facility] [address] [facility] [id number] [place] [address]- 5965 May, 2014 [facility] [place] [facility] [address] [facility] [id number] [place] [address]- 4871 May, 2014 [facility] [place] [facility] [address] [facility] [id number] [address]- 8541 May, 2014 [facility] [place] [facility] [address] [facility] [id number] [place] [address]- 8949 May, 2014 [facility] [place] [facility] [address] [id number] [place] [address]- 6802 Apr, [facility] [place] [facility] [address] [facility] [id number] [place] [address]- 2052 Apr, [facility] [place] [facility] [address] [id number] [place] [address]- 3107 Apr, [facility] [place] [facility] [address] [id number] [place] [address]- 5737 Apr, [facility] [place] [facility] [address] [id number] [place] [address]- 3533 Apr, [facility] [place] [facility] [address] [id number] [place] [address]- 7470 Apr, [facility] [place] [facility] [address] [id number] [place] [address]- 2659 Apr, [facility] [place] [facility] [address] [id number] [place] [address]- 4237 Apr, [facility] [place] [facility] [address] [id number] [place] [address]- 2408 Apr, [facility] [place] [facility] [address] [id number] [place] [address]- 1521 Apr, [facility] [place] [facility] [address] [id number] [place] [address]- 3668 Apr, [facility] [place] [facility] [address] [id number] [place] [address]- 6762 Apr, [facility] [place] [facility] [address] [id number] [place] [address]- 6534 Apr, [facility] [place] [facility] [address] [id number] [place] [address]- 1765 Apr, [facility] [place] [facility] [address] [id number] [place] [address]- 2550 Apr, [facility] [place] [facility] [address] [id number] [place] [address]- 2533 Mar, [facility] [place] [facility] [address] [id number] [place] [address]- 4057 Mar, [facility] [place] [facility] [address] [id number] [place] [address]- 0618 Mar, [facility] [place] [facility] [address] [id number] [place] [address]- 7284 Mar, [facility] [place] [facility] [address] [id number] [place] [address]- 2243 Mar, [facility] [place] [facility] [address] [id number] [place] [address]- 1877 Mar, [facility] [place] [facility] [address] [id number] [place] [address]- 7038 15 Mar, 2014 [facility] [place] [facility] [address] [id number] [place] [address]- 9787 15 Mar, 2014 [facility] [place] [facility] [address] [id number] [place] [address]- 0892 Mar, [facility] [place] [facility] [address] [id number] [place] [address]- 5094 Mar, [facility] [place] [facility] [address] [id number] [place] [address]- 7080 Mar, [facility] [place] [facility] [address] [id number] [place] [address]- 4958 Mar, [facility] [place] [facility] [address] [id number] [place] [address]- 6433 Mar, [facility] [place] [facility] [address] [id number] [place] [address]- 1980 Mar, [facility] [place] [facility] [address] [id number] [place] [address]- 9703 Mar, [facility] [place] [facility] [address] [id number] [place] [address]- 0254 Mar, [facility] [place] [facility] [address] [id number] [place] [address]- 9687 Mar, [facility] [place] [facility] [address] [id number] [place] [address]- 8595 Mar, [facility] [place] [facility] [address] [id number] [place] [address]- 0728 Feb, [facility] [place] [facility] [address] [id number] [place] [address]- 0627 Feb, [facility] [place] [facility] [address] [id number] [place] [address]- 8387 Feb, [facility] [place] [facility] [address] [id number] [place] [address]- 6328 Feb, [facility] [place] [facility] [address] [id number] [place] [address]- 4029 Feb, [facility] [place] [facility] [address] [id number] [place] [address]- 0104 Feb, [facility] [place] [facility] [address] [id number] [place] [address]- 7264 Feb, [facility] [place] [facility] [address] [id number] [place] [address]- 0965 Feb, [facility] [place] [facility] [address] [id number] [place] [address]- 3710 Jan, [facility] [place] [facility] [address] [id number] [place] [address]- 7239 Jan, [facility] [place] [facility] [address] [id number] [place] [address]- 6662 Jan, [facility] [place] [facility] [address] [id number], [place] [address] Jan, [facility] [place] [facility] [address] [id number], [place] [address] Jan, [facility] [place] [facility] [address] [id number] [place] [address] 31 Jan, 2014 [facility] [place] [facility] [address] [id number], [place] [address] Jan, [facility] [place] [facility] [address] [id number] [place] [address] Jan, [facility] [place] [facility] [address] [id number] [place] [address] 24 Jan, 2014 [facility] [place] [facility] [address] [id number] [place] [address]- [address]42 24 Jan, 2014 [facility] [place] [facility] [address] [id number] [place] [address] 1760 Jan, [facility] [place] [facility] [address] [id number] [place] [address] 1638 Jan, [facility] [place] [facility] [address] [id number] [place] [address]- [address] Jan, [facility] [place] [facility] [address] [id number] [place] [address] 6[address] Jan, [facility] [place] [facility] [address] [id number] [place] [address] 16 Jan, 2014 [facility] [place] [facility] [address] [id number] [place] [address]- [address] 16 Jan, 2014 [facility] [place] [facility] [address] [id number] [place] [address]- 8397 Jan, [facility] [place] [facility] [address] [id number] [place] [address]- 1480 Jan, [facility] [place] [facility] [address] [id number] [place] [address]- [address] 29 Dec, 2013 [facility] [place] [facility] [address] [id number] [place] [address]- [address]43 29 Sep, 2013 [facility] [place] [facility] [address] [id number] [place] [address]- [address]20 26 Dec, 2013 [facility] [place] [facility] [address] [id number] [place] [address]- [address]482 26 Dec, 2013 [facility] [place] [facility] [address] [id number] [place] [address]- 2542 26 Dec, 2013 [facility] [place] [facility] [address] [id number] [place] [address]- [address]246 26 Dec, 2013 [facility] [place] [facility] [address] [id number] [place] [address]- 1148 23 Dec, 2013 [facility] [place] [facility] [address] [id number] [place] [address]- 1582 23 Dec, 2013 [facility] [place] [facility] [address] [id number] [place] [address]- [address]26 22 Dec, 2013 [facility] [place] [facility] [address] [id number] [place] [address] 254 22 Dec, 2013 [facility] [place] [facility] [address] [id number] [place] [address]- 9629 16 Dec, 2013 [facility] [place] [facility] [address] [id number] [place] [address]- 8421 16 Dec, 2013 [facility] [place] [facility] [address] [id number] [place] [address]- 7360 15 Dec, 2013 [facility] [place] [facility] [address] [id number] [place] [address]- 9320 15 Dec, 2013 [facility] [place] [facility] [address] [id number] [place] [address]- 3748 09 Dec, 2013 [facility] [place] [facility] [address] [id number] [place] [address]- 1630 Dec, [facility] [place] [facility] [address] [id number] [place] [address] Dec, [facility] [place] [facility] [address] [id number] [place] [address]- 388[address] Nov, [facility] [place] [facility] [address] [id number] [place] [address]- [address] Nov, [facility] [place] [facility] [address] [id number] [place] [address]- 1638 Nov, [facility] [place] [facility] [address] [id number] [place] [address]- 9216 Nov, [facility] [place] [facility] [address] [id number] [place] [address]118 Nov, [facility] [place] [facility] [address] [id number] [place] [address]- [address]286 Nov, [facility] [place] [facility] [address] [id number] [place] [address]- 1085 Nov, [facility] [place] [facility] [address] [id number] [place] [address]- 4473 Nov, [facility] [place] [facility] [address] [id number] [place] [address]- 5678 Nov, [facility] [place] [facility] [address] [id number] [place] [address]- 3363 Nov, [facility] [place] [facility] [address] [id number] [place] [address]- [address]60 Nov, [facility] [place] [facility] [address] [id number] [place] [address]- 4[address] Nov, [facility] [place] [facility] [address] [id number] [place] [address]- 1334 Nov, [facility] [place] [facility] [address] [id number] [place] [address]- 4746 Nov, [facility] [place] [facility] [address] [id number] [place] [address]- 1794 Nov, [facility] [place] [facility] [address] [id number] [place] [address]- 7604 Nov, [facility] [place] [facility] [address] [id number] [place] [address]- [address] Nov, [facility] [place] [facility] [address] [id number] [place] [address]- 1866 Nov, [facility] [place] [facility] [address] [id number] [place] [address]- 6[address] Nov, [facility] [place] [facility] [address] [id number] [place] [address] Nov, [facility] [place] [facility] [address] [id number] [place] [address] Nov, [facility] [place] [facility] [address] [id number] [place] [address] Oct, [facility] [place] [facility] [address] [id number] [place] [address] 9336 Oct, [facility] [place] [facility] [address] [id number] [place] [address] 3666 Oct, [facility] [place] [facility] [address] [id number] [place] [address] 4[address] Oct, [facility] [place] [facility] [address] [id number] [place] [address] 4484 Oct, [facility] [place] [facility] [address] [id number] [place] [address] 1788 Oct, [facility] [place] [facility] [address] [id number] [place] [address]- 7708 Oct, [facility] [place] [facility] [address] [id number] [place] [address] 2748 Oct, [facility] [place] [facility] [address] [id number] [place] [address]- 1711 Oct, [facility] [place] [facility] [address] [id number] [place] [address] 6114 Oct, [facility] [place] [facility] [address] [id number] [place] [address]- 7976 Oct, [facility] [place] [facility] [address] [id number] [place] [address]- 4623 Oct, [facility] [place] [facility] [address] [id number] [place] [address]- 0529 Oct, [facility] [place] [facility] [address] [id number] [place] [address]- 1736 Oct, [facility] [place] [facility] [address] [id number] [place] [address]- 6040 Oct, [facility] [place] [facility] [address] [id number] [place] [address]- 4103 30 Sep, 2013 [facility] [place] [facility] [address] [id number] [place] [address]- 7751 30 Sep, 2013 [facility] [place] [facility] [address] [id number] [place] [address]- 9364 Sep, [facility] [place] [facility] [address] [id number] [place] [address]- 1894 Sep, [facility] [place] [facility] [address] [id number] [place] [address]- 0410 Sep, [facility] [place] [facility] [address] [id number] [place] [address]- 3386 Sep, [facility] [place] [facility] [address] [id number] [place] [address]- 1849 Sep, [facility] [place] [facility] [address] [id number] [place] [address]- 2034 18 Sep, 2013 [facility] [place] [facility] [address] [id number] [place] [address]- 0549 17 Sep, 2013 [facility] [place] [facility] [address] [id number] [place] [address]- 4085 16 Sep, 2013 [facility] [place] [facility] [address] [id number] [place] [address]- 7870 16 Sep, 2013 [facility] [place] [facility] [address] [id number], [place] [address]- 6[address] 16 Sep, 2013 [facility] [place] [facility] [address] [id number] [place] [address]- 3383 Sep, [facility] [place] [facility] [address] [id number] [place] [address]- 5469 Sep, [facility] [place] [facility] [address] [id number] [place] [address]- 3931 Sep, [facility] [place] [facility] [address] [id number] [place] [address]- 2730 Sep, [facility] [place] [facility] [address] [id number] [place] [address]- 5839 Sep, [facility] [place] [facility] [address] [id number] [place] [address]- 9398 Sep, [facility] [place] [facility] [address] [id number] [place] [address]- 2369 Sep, [facility] [place] [facility] [address] [id number] [place] [address]- 3329 Sep, [facility] [place] [facility] [address] [id number] [place] [address]- 4860 Sep, [facility] [place] [facility] [address] [id number] [place] [address]- 6741 Sep, [facility] [place] [facility] [address] [id number] [place] [address]- 2194 August, [facility] [place] [facility] [address] [id number] [place] [address]- 6374 August, [facility] [place] [facility] [address] [id number] [place] [address]- 3744 August, [facility] [place] [facility] [address] [id number] [place] [address]- 2770 August, [facility] [place] [facility] [address] [id number] [place] [address]- 0828 August, [facility] [place] [facility] [address] [id number] [place] [address]- 6000 August, [facility] [place] [facility] [address] [id number] [place] [address]- 9445 August, [facility] [place] [facility] [address] [id number] [place] [address]- 8374 August, [facility] [place] [facility] [address] [id number] [place] [address] August, [facility] [place] [facility] [address] [id number] [place] [address]- 3099 August, [facility] [place] [facility] [address] [id number] [place] [address]- 3216 August, [facility] [place] [facility] [address] [id number] [place] [address]- 6660 August, [facility] [place] [facility] [address] [id number] [place] [address]- 3827 August, [facility] [place] [facility] [address] [id number] [place] [address] 1907 August, [facility] [place] [facility] [address] [id number] [place] [address]- 7503 August, [facility] [place] [facility] [address] [id number] [place] [address]- 7520 August, [facility] [place] [facility] [address] [id number] [place] [address]- 5563 August, [facility] [place] [facility] [address] [id number] [place] [address]- 6724 August, [facility] [place] [facility] [address] [id number] [place] [address]- 5555 Jul, [facility] [place] [facility] [address] [id number] [place] [address]- 0971 Jul, [facility] [place] [facility] [address] [id number] [place] [address]- 6682 Jul, [facility] [place] [facility] [address] [id number] [place] [address]- 1119 Jul, [facility] [place] [facility] [address] [id number] [place] [address]- 7971 Jul, [facility] [place] [facility] [address] [id number] [place] [address]- 6843 Jul, [facility] [place] [facility] [address] [id number] [place] [address]- 7036 22 Jul, 2013 [facility] [place] [facility] [address] [id number] [place] [address]- 9892 22 Jul, 2013 [facility] [place] [facility] [address] [id number] [place] [address]- 7291 22 Jul, 2013 [facility] [place] [facility] [address] [id number] [place] [address]- 6980 Jul, [facility] [place] [facility] [address] [id number] [place] [address]- 6529 21 Jul, 2013 [facility] [place] [facility] [address] [id number] [place] [address]- 8214 18 Jul, 2013 [facility] [place] [facility] [address] [id number] [place] [address]- 9410 18 Jul, 2013 [facility] [place] [facility] [address] [id number] [place] [address]- 1688 17 Jul, 2013 [facility] [place] [facility] [address] [id number] [place] [address]- 4939 17 Jul, 2013 [facility] [place] [facility] [address] [id number] [place] [address]- 8820 17 Jul, 2013 [facility] [place] [facility] [address] [id number] [place] [address]- 5824 17 Jul, 2013 [facility] [place] [facility] [address] [id number] [place] [address]- 2838 16 Jul, 2013 [facility] [place] [facility] [address] [id number] [place] [address]- 4214 16 Jul, 2013 [facility] [place] [facility] [address] [id number] [place] [address]- 2168 15 Jul, 2013 [facility] [place] [facility] [address] [id number] [place] [address]- 0662 15 Jul, 2013 [facility] [place] [facility] [address] [id number] [place] [address]- 7484 14 Jul, 2013 [facility] [place] [facility] [address] [id number] [place] [address]- 6195 14 Jul, 2013 [facility] [address] [id number] [place] [address]- 4742 12 Jul, 2013 [facility] [place] [facility] [address] [id number] [place] [address]- 4525 12 Jul, 2013 [facility] [place] [facility] [address] [id number] [place] [address]- 1107 Jul, [facility] [place] [facility] [address] [id number] [place] [address]- 9134 Jul, [facility] [place] [facility] [address] [id number] [place] [address]- 4710 Jul, [facility] [place] [facility] [address] [id number] [place] [address]- 2898 Jul, [facility] [place] [facility] [address] [id number] [place] [address]- 6198 17 Jun, 2013 [facility] [place] [facility] [address] [id number] [place] [address]- 8903 17 Jun, 2013 [facility] [place] [facility] [address] [id number] [place] [address]- 3985 17 Jun, 2013 [facility] [place] [facility] [address] [id number] [place] [address]- 0161 17 Jun, 2013 [facility] [place] [facility] [address] [id number] [place] [address]- 6280 13 Jun, 2013 [facility] [place] [facility] [address] [id number] [place] [address]- 5989 13 Jun, 2013 [facility] [place] [facility] [address] [id number] [place] [address]- 3056 11 Jun, 2013 [facility] [place] [facility] [address] [id number] [place] [address]- 1885 11 Jun, 2013 [facility] [place] [facility] [address] [id number] [place] [address]- 0145 Jun, [facility] [place] [facility] [address] [id number] [place] [address]- 7957 10 Jun, 2013 [facility] [place] [facility] [address] [id number] [place] [address]- 1646 Jun, [facility] [place] [facility] [address] [id number] [place] [address]- 9481 Jun, [facility] [place] [facility] [address] [id number] [place] [address]- 0810 May, [facility] [place] [facility] [address] [id number] [place] [address]- 9502 May, [facility] [place] [facility] [address] [id number] [place] [address]- 9704 May, [facility] [place] [facility] [address] [id number] [place] [address]- 8681 May, [facility] [place] [facility] [address] [id number] [place] [address]- 9356 May, [facility] [place] [facility] [address] [id number] [place] [address]- 3082 May, [facility] [place] [facility] [address] [id number] [place] [address]- 0389 May, [facility] [place] [facility] [address] [id number] [place] [address]- 7302 May, [facility] [place] [facility] [address] [id number] [place] [address]- 1710 May, [facility] [place] [facility] [address] [id number] [place] [address]- 7598 May, [facility] [place] [facility] [address] [id number] [place] [address]- 7546 Apr, [facility] [place] [facility] [address] [id number] [place] [address]- 4807 Apr, [facility] [place] [facility] [address] [id number] [place] [address]- 6254 Apr, [facility] [address] [id number] [place] [address]- 1396 Apr, [facility] [address] [id number] [place] [address]- 3434 Apr, [facility] [address] [id number] [place] [address]- 2525 Apr, [facility] [place] [facility] [address] [id number] [place] [address]- 9413 Apr, [facility] [address] [id number] [place] [address]- 8958 Apr, [facility] [address] [id number] [place] [address]- 9922 Apr, [facility] [address] [id number] [place] [address]- 9040 Apr, [facility] [address] [id number] [place] [address]- 4181 Mar, [facility] [address] [id number] [place] [address]- 2530 Mar, [facility] [address] [id number] [place] [address]- 8343 Mar, [facility] [address] [id number] [place] [address]- 7567 Mar, [facility] [address] [id number] [place] [address]- 5413 Mar, [facility] [place] [facility] [address] [id number] [place] [address]- 7082 Mar, [facility] [address] [id number] [place] [address]- 2925 Feb, [facility] [address] [id number] [place] [address]- 9585 Feb, [facility] [place] [facility] [address] [id number] [place] [address]- 2682 Feb, [facility] [place] [facility] [address] [id number] [place] [address]- 3077 Jan, [facility] [place] [facility] [address] [id number] [place] [address]- 1125 Jan, [facility] [place] [facility] [address] [id number] [place] [address]- 1271 Jan, [facility] [place] [facility] [address] [id number] [place] [address]- 0798 Jan, [facility] [place] [facility] [address] [id number] [place] [address]- 3909 Jan, [facility] [place] [facility] [address] [id number] [place] [address]- 2113 Jan, [facility] [place] [facility] [address] [id number], [place] [address]- 2087 Jan, [facility] [place] [facility] [address] [id number] [place] [address]- 7136 Jan, [facility] [place] [facility] [address] [id number], [place] [address]- 4373 Jan, [facility] [place] [facility] [address] [id number], [place] [address]- 7970 Jan, [facility] [place] [facility] [address] [id number], [place] [address]- 6857 30 Dec, 2012 [facility] [place] [facility] [address] [id number], [place] [address]- 2057 25 Dec, 2012 [facility] [place] [facility] [address] [id number], [place] [address]- 5469 Dec, [facility] [place] [facility] [address] [id number][place] 6600 09 Dec, 2012 [facility] [place] [facility] [address] [id number], [place] [address]- 1774 Dec, [facility] [place] [facility] [address] [id number] [place] [address]- 7687 Dec, [facility] [place] [facility] [address] [id number] [place] [address]- 0159 Nov, [facility] [place] [facility] [address] [id number] [place] [address]- 1283 Nov, [facility] [place] [facility] [address] [id number] [place] [address]- 3386 Nov, [facility] [place] [facility] [address] [id number] [place] [address]- 2089 Nov, [facility] [place] [facility] [address] [id number] [place] [address]- 8626 Nov, [facility] [place] [facility] [address] [id number] [place] [address]- 4868 Nov, [facility] [place] [facility] [address] [id number] [place] [address]- 1464 Nov, [facility] [place] [facility] [address] [id number] [place] [address]- 7575 Nov, [facility] [place] [facility] [address] [id number] [place] [address]- 9441 Nov, [facility] [place] [facility] [address] [id number] [place] [address]- 6689 Nov, [facility] [place] [facility] [address] [id number] [place] [address]- 2547 Nov, [facility] [place] [facility] [address] [id number] [place] [address]- 8185 Nov, [facility] [place] [facility] [address] [id number] [place] [address]- 3414 Oct, [facility] [place] [facility] [address] [id number] [place] [address]- 8117 Oct, [facility] [place] [facility] [address] [id number] [place] [address]- 3225 Oct, [facility] [place] [facility] [address] [id number] [place] [address]- 7200 Sep, [facility] [place] [facility] [address] [id number] [place] [address]- 4814 Sep, [facility] [place] [facility] [address] [id number] [place] [address]- 5866 Sep, [facility] [place] [facility] [address] [id number] [place] [address]- 1436 August, [facility] [place] [facility] [address] [id number] [place] [address]- 8953 August, [facility] [place] [facility] [address] [id number] [place] [address]- 0927 August, [facility] [place] [facility] [address] [id number] [place] [address]- 3936 August, [facility] [place] [facility] [address] [id number] [place] [address]- 5888 August, [facility] [place] [facility] [address] [id number] [place] [address]- 6027 August, [facility] [place] [facility] [address] [id number] [place] [address]- 1176 Jul, [facility] [place] [facility] [address] [id number] [place] [address]- 6970 15 Jul, 2012 [facility] [place] [facility] [address] [id number] [place] [address]- 0817 11 Jul, 2012 [facility] [place] [facility] [address] [id number] [place] [address]- 1066 10 Jul, 2012 [facility] [place] [facility] [address] [id number] [place] [address]- 4508 04 Jul, 2012 [facility] [place] [facility] [address] [id number] [place] [address]- 1525 04 Jul, 2012 [facility] [place] [facility] [address] [id number] [place] [address]- 8346 2012 [facility] [place] [facility] [address] [id number] [place] [address]- 8134 20 Jun, 2012 [facility] [place] [facility] [address] [id number] [place] [address]- 9603 18 Jun, 2012 [facility] [place] [facility] [address] [id number] [place] [address]- 1279 14 Jun, 2012 [facility] [place] [facility] [address] [id number] [place] [address]- 9334 04 Jun, 2012 [facility] [place] [facility] [address] [id number] [place] [address]- 1646 13 May, 2012 [facility] [place] [facility] [address] [id number] [place] [address]- 5287 12 May, 2012 [facility] [place] [facility] [address] [id number] [place] [address]- 5723 May, [facility] [place] [facility] [address] [id number] [place] [address]- 2471 08 May, 2012 [facility] [place] [facility] [address] [id number] [place] [address]- 3422 Apr, [facility] [place] [facility] [address] [id number] [place] [address]- 3096 Apr, [facility] [place] [facility] [address] [id number] [place] [address]- 7942 Apr, [facility] [place] [facility] [address] [id number] [place] [address]- 9128 Mar, [facility] [place] [facility] [address] [id number] [place] [address]- 0441 Mar, [facility] [place] [facility] [address] [id number] [place] [address]- 7221 Mar, [facility] [place] [facility] [address] [id number] [place] [address]- 4255 Mar, [facility] [place] [address] [id number] [place] [address]- 3663 Mar, [facility] [place] [facility] [address] [id number] [place] [address] 114[address] Mar, [facility] [address] [id number] [place] [address] Mar, [facility] [place] [facility] [address] [id number] [place] [address] Mar, [facility] [address] [id number] [place] [address] 16[address] Feb, [facility] [place] [facility] [address] [id number] [place] [address] Feb, [facility] [place] [facility] [address] [id number] [place] [address] 116[address] Feb, [facility] [address] [id number] [place] [address] Feb, [facility] [place] [facility] [address] [id number] [place] [address] Feb, [facility] [address] [id number] [place] [address] Feb, [facility] [place] [facility] [address] [id number] [place] [address] Feb, [facility] [place] [facility] [address] [id number] [place] [address] Feb, [facility] [place] [facility] [address] [id number] [place] [address] 85[address] Feb, [facility] [place] [facility] [address] [id number] [place] [address]- [address] Feb, [facility] [place] [facility] [address] [id number] [place] [address]- 245[address] Feb, [facility] [place] [facility] [address] [id number] [place] [address] Feb, [facility] [place] [facility] [address] [id number] [place] [address] Feb, [facility] [place] [facility] [address] [id number] [place] [address]007 Feb, [facility] [place] [facility] [address] [id number] [place] [address] Feb, [facility] [place] [facility] [address] [id number] [place] [address] Feb, [facility] [place] [facility] [address] [id number] [place] [address]- [address] Feb, [facility] [place] [facility] [address] [id number] [place] [address]- 64[address] Feb, [facility] [place] [facility] [address] [id number], [place] [address] Jan, [facility] [place] [facility] [address] [id number] [place] [address] 132[address] Jan, [facility] [place] [facility] [address] [facility] [id number], [place] [address] Jan, [facility] [place] [facility] [address] [facility] [id number], [place] [address]- [address]67 Jan, [facility] [place] [facility] [address] [id number], [place] [address] Jan, [facility] [place] [facility] [address] [id number], [place] [address] Jan, [facility] [place] [facility] [address] [id number], [place] [address] Jan, [facility] [place] [facility] [address] [facility] [id number], [place] [address]- [address] Jan, [facility] [place] [facility] [address] [id number], [place] [address]- [address] 15 Jan, 2012 [facility] [place] [facility] [address] [id number] [place] [address]- [address] 15 Jan, 2012 [facility] [place] [facility] [address] [id number] [place] [address]- [address]476 11 Jan, 2012 [facility] [place] [facility] [address] [facility] [id number] [place] [address]- [address]36 11 Jan, 2012 [facility] [place] [facility] [address] [id number] [place] [address] 8714 10 Jan, 2012 [facility] [place] [facility] [address] [id number] [place] [address], [place] [address]- [address] 09 Jan, 2012 [facility] [place] [facility] [address] [id number] [place] [address]- [address] 02 Jan, 2012 [facility] [place] [facility] [address] [facility] [id number] [place] [address]- [address] 29 Dec, 2011 [facility] [place] [facility] [address] [id number] [place] [address]- 3784 28 Dec, 2011 [facility] [place] [facility] [address] [facility] [id number] [place] [address]- 7675 27 Dec, 2011 [facility] [place] [facility] [address] [facility] [id number] [place] [address]- 9840 26 Dec, 2011 [facility] [place] [facility] [address] [id number] [place] [address]- 1669 24 Nov, 2011 [facility] [place] [facility] [address] [id number], [place] [address] Nov, [facility] [place] [facility] [address] [id number] [place] [address]- 3607 Nov, [facility] [place] [facility] [address] [facility] [id number] [place] [address]- 365[address] Nov, [facility] [place] [facility] [address] [facility] [id number] [place] [address]- [address]77 Nov, [facility] [place] [facility] [address] [id number] [place] [address] 5958 Nov, [facility] [place] [facility] [address] [id number] [place] [address]- 9416 Nov, [facility] [place] [facility] [address] [id number] [place] [address]- [address]236 Nov, [facility] [place] [facility] [address] [id number] [place] [address]- [address] Nov, [facility] [place] [facility] [address] [id number] [place] [address]- 9085 Nov, [facility] [place] [facility] [address] [id number] [place] [address]- 9730 Nov, [facility] [place] [facility] [address] [id number] [place] [address]- 7641 Oct, [facility] [place] [facility] [address] [id number] [place] [address]- 5085 Oct, [facility] [place] [facility] [address] [id number] [place] [address]- 6470 Oct, [facility] [place] [facility] [address] [id number] [place] [address]- 9044 Oct, [facility] [place] [facility] [address] [id number] [place] [address]- 3396 Oct, [facility] [place] [facility] [address] [id number] [place] [address]- 3981 Oct, [facility] [place] [facility] [address] [id number] [place] [address]- 1712 Oct, [facility] [place] [facility] [address] [id number] [place] [address]- 0096 Oct, [facility] [place] [facility] [address] [id number] [place] [address]- [address] Sep, [facility] [place] [facility] [address] [id number] [place] [address]- 2742 Sep, [facility] [place] [facility] [address] [id number] [place] [address]- 2758 Sep, [facility] [place] [facility] [address] [id number] [place] [address]- 8876 Sep, [facility] [place] [facility] [address] [id number] [place] [address]- 5037 Sep, [facility] [place] [facility] [address] [id number] [place] [address]- 0664 Sep, [facility] [place] [facility] [address] [id number] [place] [address]- 6455 Sep, [facility] [place] [facility] [address] [id number] [place] [address]- 8474 August, [facility] [place] [facility] [address] [id number] [place] [address]- 9263 August, [facility] [place] [facility] [address] [id number] [place] [address]- 5012 August, [facility] [place] [facility] [address] [id number] [place] [address]- 8062 August, [facility] [place] [facility] [address] [id number] [place] [address]- 9990 August, [facility] [place] [facility] [address] [id number] [place] [address]- 8958 August, [facility] [place] [facility] [address] [id number] [place] [address] August, [facility] [place] [facility] [address] [id number] [place] [address] August, [facility] [place] [facility] [address] [id number] [place] [address] Jul, [facility] [place] [facility] [address] [id number] [place] [address] Jul, [facility] [place] [facility] [address] [id number] [place] [address] 13 Jul, 2011 [facility] [place] [facility] [address] [id number] [place] [address] 11 Jul, 2011 [facility] [place] [facility] [address] [id number] [place] [address] 05 Jul, 2011 [facility] [place] [facility] [address] [id number] [place] [address] 28 Jun, 2011 [facility] [place] [facility] [address] [id number] [place] [address] 2011 [facility] [place] [facility] [address] [id number] [place] [address] 20 Jun, 2011 [facility] [place] [facility] [address] [id number] [place] [address] 19 Jun, 2011 [facility] [place] [facility] [address] [id number] [place] [address] Jun, [facility] [place] [facility] [address] [id number] [place] [address] Jun, [facility] [place] [facility] [address] [id number] [place] [address] Jun, [facility] [place] [facility] [address] [facility] [id number] [place] [address] Jun, [facility] [place] [facility] [address] [id number] [place] [address] 06 Jun, 2011 [facility] [place] [facility] [address] [id number] [place] [address] 27 May, 2011 [facility] [place] [facility] [address] [id number] [place] [address] 24 May, 2011 [facility] [place] [facility] [address] [id number] [place] [address] May, [facility] [place] [facility] [address] [id number] [place] [address] May, [facility] [address] [id number] [place] [address] May, [facility] [place] [facility] [address] [id number] [place] [address] May, [facility] [place] [facility] [address] [id number] [place] [address] May, [facility] [place] [facility] [address] [id number] [place] [address] May, [facility] [address] [id number] [place] [address] Apr, [facility] [place] [facility] [address] [id number] [place] [address] Apr, [facility] [place] [facility] [address] [id number] [place] [address] 14[address] Apr, [facility] [place] [facility] [address] [id number] [place] [address] Apr, [facility] [place] [facility] [address] [id number] [place] [address] Apr, [facility] [place] [facility] [address] [facility] [id number] [place] [address] Apr, [facility] [place] [facility] [address] [id number] [place] [address] Mar, [facility] [place] [facility] [address] [id number] [place] [address] Mar, [facility] [place] [facility] [address] [id number] [place] [address] Mar, [facility] [place] [facility] [address] [id number] [place] [address] Mar, [facility] [place] [facility] [address] [id number] [place] [address] 15 Mar, 2011 [facility] [place] [facility] [address] [id number] [place] [address] 13 Mar, 2011 [facility] [place] [facility] [address] [id number] [place] [address] 2638 Mar, [facility] [place] [facility] [address] [id number] [place] [address] Mar, [facility] [place] [facility] [address] [id number] [place] [address] Mar, [facility] [place] [facility] [address] [id number] [place] [address] Mar, [facility] [place] [facility] [address] [id number] [place] [address] 05 Mar, 2011 [facility] [place] [facility] [address] [id number] [place] [address] Mar, [facility] [place] [facility] [address] [facility] [id number] [place] [address] Mar, [facility] [place] [facility] [address] [id number] [place] [address] Feb, [facility] [place] [facility] [address] [id number] [place] [address] Feb, [facility] [place] [facility] [address] [facility] [id number] [place] [address] Feb, [facility] [place] [facility] [address] [id number] [place] [address] Feb, [facility] [place] [facility] [address] [id number] [address] Feb, [facility] [place] [facility] [address] [id number] [place] [address]- [address] Feb, [facility] [place] [facility] [address] [facility] [id number] [place] [address] Feb, [facility] [place] [facility] [address] [id number], [place] [address] Jan, [facility] [address] [facility] [id number][place] [address] Jan, [facility] [address] [facility] [id number], [place] [address] Jan, [facility] [address] [facility] [id number], [place] [address] Nov, [facility] [address] [facility] [id number] [place] [address] Mar, [facility] [address] [facility] [id number], [place] [address] Mar, [facility] [address] [facility] [id number], [place] [address] Mar, [facility] [address] [id number], [place] [address] Mar, [facility] [address] [id number], [place] [address] Mar, [facility] [address] [id number], [place] [address] Feb, [facility] [address] [id number], [place] [address] Feb, [facility] [id number], [place] [address] Feb, [facility] [address] [id number], [place] [address] Feb, [facility] [address] [facility] [id number], [place] [address] Feb, [facility] [address] [address] Feb, IMMUNIZATIONS No Known Immunizations SOCIAL HISTORY Never Assessed REASON FOR VISIT Pain (acute)neck. Pt states that when she turns her head either way it hurts. , Pt felt a lump under her left breast last night. She would like a letter / note stating that you are in agreement with pt needing further examination. , Along with her melatonin at night, she would like something else to go along with it to ensure she will sleep deep enough to keep O2 mask on. JESSENIA Sibley PLAN OF CARE Activity Details Follow Up 3 Months Reason: VITAL SIGNS Height 60 in 2016-11-18 Weight 208 lbs 2016-11-18 Temperature 98.6 degrees Fahrenheit 2016-11-18 Heart Rate 88 bpm 2016-11-18 Respiratory Rate 22 2016-11-18 BMI 40.62 kg/m2 2016-11-18 Blood pressure systolic 130 mmHg 2016-11-18 Blood pressure diastolic 80 mmHg 2016-11-18 MEDICATIONS Medication Instructions Dosage Frequency Start Date End Date Duration Status Singulair 10 mg Orally Once a day 1 tablet in the evening 24h August, Active Albuterol Sulfate 90 mcg/actuation 2 puffs by Inhalation route every 4-6 hours as needed PRN cough or wheezing Oct, Active Omeprazole 20 mg Orally 2 times a day TAKE 1 CAPSULE BY MOUTH TWICE DAILY 12h Active Requip 4 MG Orally Once a day as directed 24h Feb, 30 days Active VESIcare 5 mg Orally Once a day 1 tablet 24h August, Nov, Active Cane 1 as directed Sep, Active Amitriptyline HCl 100 MG Orally Once at bedtime for sleep 1 tablet 90 Active Lisinopril 5 mg Orally Once a day 1 tablet 24h August, 30 day(s) Active Albuterol Sulfate (2.5 MG/3ML) 0.083% Inhalation every 4-6 hours as needed for cough or wheeze 3 ml Jan, Active Symbicort 160-4.5 MCG/ACT Inhalation Twice a day 2 puffs 12h 20 May, 2016 Active Exemestane 25 MG Orally Once a day 1 tablet with a meal 24h Active Silvadene 1 % Externally Once a day 1 application to affected area 24h Nov, Active Hydrocodone-Acetaminophen 5-325 MG Orally every 6 hrs 1 tablet as needed 6h Active Pramipexole Dihydrochloride 0.25 MG Orally Once a day TAKE 3 TABLETS BY MOUTH AT BEDTIME 24h 30 days Active Oxygen 2 L/NC subcutaneously at night only as directed Jul, Active Ibuprofen 600 MG Orally every 6 hrs 1 tablet as needed for pain 6h Nov, 30 days Active Diltiazem HCl 120 MG Orally daily TAKE 1 TABLET BY MOUTH 2 TIMES A DAY 24h Active RESULTS No Results PROCEDURES Procedure Date Ordered Result Body Site [facility] VISIT ESTABLISHED PATIENT Nov 18, 2016 INSTRUCTIONS MEDICATIONS ADMINISTERED No Known Medications [...]
--- OUTSIDE RECORDS SUMMARY | 2017-08-08 00:08 | XMS REPORT ---
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 [address]- 8267 13 Jun, 2014 [facility] [place] [facility] [address] [id number] [place] [address]- 6365 12 Jun, 2014 [facility] [place] [facility] [address] [id number] [place] [address]- 4632 12 Jun, 2014 [facility] [place] [facility] [address] [id number] [place] [address]- 1050 Jun, [facility] [place] [facility] [address] [id number] [place] [address]- 9486 Jun, [facility] [place] [facility] [address] [id number] [place] [address]- 4300 Jun, [facility] [place] [facility] [address] [id number] [place] [address]- 5877 Jun, [facility] [place] [facility] [address] [id number] [place] [address]- 9262 Jun, [facility] [place] [facility] [address] [id number] [place] [address]- 2987 Jun, [facility] [place] [facility] [address] [facility] [id number] [place] [address]- 0065 Jun, [facility] [place] [facility] [address] [id number] [place] [address]- 8836 Jun, [facility] [place] [facility] [address] [id number] [place] [address]- 0874 Jun, [facility] [place] [facility] [address] [facility] [id number] [place] [address]- 7836 Jun, [facility] [place] [facility] [address] [facility] [id number] [place] [address]- 6906 May, 2014 [facility] [place] [facility] [address] [id number] [place] [address]- 0997 May, 2014 [facility] [place] [facility] [address] [id number] [place] [address]- 0027 May, [facility] [place] [facility] [address] [id number] [place] [address]- 4134 May, 2014 [facility] [place] [facility] [address] [facility] [id number] [place] [address]- 7012 May, 2014 [facility] [place] [facility] [address] [facility] [id number] [place] [address]- 5963 May, 2014 [facility] [place] [facility] [address] [id number] [place] [address]- 4536 May, 2014 [facility] [place] [facility] [address] [id number] [place] [address]- 5526 May, 2014 [facility] [place] [facility] [address] [id number] [place] [address]- 3156 May, 2014 [facility] [place] [facility] [address] [id number] [place] [address]- 7506 May, 2014 [facility] [place] [facility] [address] [id number] [place] [address]- 0377 May, 2014 [facility] [place] [facility] [address] [facility] [id number] [place] [address]- 4206 May, 2014 [facility] [place] [facility] [address] [facility] [id number] [place] [address]- 0473 May, 2014 [facility] [place] [facility] [address] [facility] [id number] [place] [address]- 6179 May, 2014 [facility] [place] [facility] [address] [facility] [id number] [place] [address]- 6334 May, 2014 [facility] [place] [facility] [address] [facility] [id number] [place] [address]- 9776 May, [facility] [place] [facility] [address] [facility] [id number] [place] [address]- 8696 Apr, [facility] [place] [facility] [address] [id number] [place] [address]- 2548 Apr, [facility] [place] [facility] [address] [id number] [place] [address]- 1213 Apr, [facility] [place] [facility] [address] [facility] [id number] [place] [address]- 5317 Apr, [facility] [place] [facility] [address] [facility] [id number] [place] [address]- 1144 Apr, [facility] [place] [facility] [address] [id number] [place] [address]- 1737 Apr, [facility] [place] [facility] [address] [id number] [place] [address]- 3965 Apr, [facility] [place] [facility] [address] [id number] [place] [address]- 6403 Apr, [facility] [place] [facility] [address] [id number] [place] [address]- 3293 Apr, [facility] [place] [facility] [address] [id number] [place] [address]- 1134 Apr, [facility] [place] [facility] [address] [id number] [place] [address]- 3699 Apr, [facility] [place] [facility] [address] [id number] [place] [address]- 7007 Apr, [facility] [place] [facility] [address] [id number] [place] [address]- 8669 Apr, [facility] [place] [facility] [address] [id number] [place] [address]- 1731 Apr, [facility] [place] [facility] [address] [id number] [place] [address]- 8031 Apr, [facility] [place] [facility] [address] [id number] [place] [address]- 8725 Mar, [facility] [place] [facility] [address] [id number] [place] [address]- 9097 Mar, [facility] [place] [facility] [address] [id number] [place] [address]- 3277 Mar, [facility] [place] [facility] [address] [id number] [place] [address]- 8850 Mar, [facility] [place] [facility] [address] [id number] [place] [address]- 6376 Mar, [facility] [place] [facility] [address] [id number] [place] [address]- 5922 22 Mar, 2014 [facility] [place] [facility] [address] [id number] [place] [address]- 4781 15 Mar, 2014 [facility] [place] [facility] [address] [id number] [place] [address]- 2846 15 Mar, 2014 [facility] [place] [facility] [address] [id number] [place] [address]- 3690 15 Mar, 2014 [facility] [place] [facility] [address] [id number] [place] [address]- 5987 15 Mar, 2014 [facility] [place] [facility] [address] [id number] [place] [address]- 1734 15 Mar, 2014 [facility] [place] [facility] [address] [id number] [place] [address]- 6370 15 Mar, 2014 [facility] [place] [facility] [address] [id number] [place] [address]- 8447 12 Mar, 2014 [facility] [place] [facility] [address] [id number] [place] [address]- 8259 Mar, [facility] [place] [facility] [address] [id number] [place] [address]- 4207 Mar, [facility] [place] [facility] [address] [id number] [place] [address]- 9920 Mar, [facility] [place] [facility] [address] [id number] [place] [address]- 4639 Mar, [facility] [place] [facility] [address] [id number] [place] [address]- 1945 Mar, [facility] [place] [facility] [address] [id number] [place] [address]- 0221 Feb, [facility] [place] [facility] [address] [id number] [place] [address]- 4637 Feb, [facility] [place] [facility] [address] [id number] [place] [address]- 8441 Feb, [facility] [place] [facility] [address] [id number] [place] [address]- 6074 Feb, [facility] [place] [facility] [address] [id number] [place] [address]- 4758 Feb, [facility] [place] [facility] [address] [id number] [place] [address]- 9725 Feb, [facility] [place] [facility] [address] [id number] [place] [address]- 7338 Feb, [facility] [place] [facility] [address] [id number] [place] [address]- 1695 Feb, [facility] [place] [facility] [address] [id number] [place] [address]- 4968 Jan, [facility] [place] [facility] [address] [id number] [place] [address] Jan, [facility] [place] [facility] [address] [id number] [place] [address] Jan, [facility] [place] [facility] [address] [id number] [place] [address] Jan, [facility] [place] [facility] [address] [id number] [place] [address] Jan, [facility] [place] [facility] [address] [id number] [place] [address] Jan, [facility] [place] [facility] [address] [id number] [place] [address] Jan, [facility] [place] [facility] [address] [id number] [place] [address] Jan, [facility] [place] [facility] [address] [id number] [place] [address] Jan, [facility] [place] [facility] [address] [id number] [place] [address] Jan, [facility] [place] [facility] [address] [id number] [place] [address] Jan, [facility] [place] [facility] [address] [id number] [place] [address] Jan, [facility] [place] [facility] [address] [id number] [place] [address] Jan, [facility] [place] [facility] [address] [id number] [place] [address] Jan, [facility] [place] [facility] [address] [id number] [place] [address] Jan, [facility] [place] [facility] [address] [id number] [place] [address] Jan, [facility] [place] [facility] [address] [id number] [place] [address] Jan, [facility] [place] [facility] [address] [id number] [place] [address] Jan, [facility] [place] [facility] [address] [id number] [place] [address] 29 Dec, 2013 [facility] [place] [facility] [address] [id number] [place] [address] 29 Dec, 2013 [facility] [place] [facility] [address] [id number] [place] [address] 26 Dec, 2013 [facility] [place] [facility] [address] [id number], [place] [address] 26 Dec, 2013 [facility] [place] [facility] [address] [id number], [place] [address]- [address] 26 Sep, 2013 [facility] [place] [facility] [address] [id number] [place] [address] 2546 26 Dec, 2013 [facility] [place] [facility] [address] [id number] [place] [address] 23 Dec, 2013 [facility] [place] [facility] [address] [id number] [place] [address]48 23 Dec, 2013 [facility] [place] [facility] [address] [id number] [place] [address] 22 Dec, 2013 [facility] [place] [facility] [address] [id number] [place] [address] 22 Dec, 2013 [facility] [place] [facility] [address] [id number] [place] [address] 2546 16 Dec, 2013 [facility] [place] [facility] [address] [id number] [place] [address]66 16 Dec, 2013 [facility] [place] [facility] [address] [id number] [place] [address] 2541 15 Dec, 2013 [facility] [place] [facility] [address] [id number] [place] [address] 80[address] 15 Dec, 2013 [facility] [place] [facility] [address] [id number] [place] [address] 09 Dec, 2013 [facility] [place] [facility] [address] [id number] [place] [address] Dec, 2013 [facility] [place] [facility] [address] [id number] [place] [address] Dec, [facility] [place] [facility] [address] [id number] [place] [address] Nov, [facility] [place] [facility] [address] [id number] [place] [address] Nov, [facility] [place] [facility] [address] [id number] [place] [address]- [address]44 Nov, [facility] [place] [facility] [address] [id number] [place] [address]- [address] Nov, [facility] [place] [facility] [address] [id number] [place] [address]- 1984 Nov, [facility] [place] [facility] [address] [id number] [place] [address] Nov, [facility] [place] [facility] [address] [id number] [place] [address]- [address] Nov, [facility] [place] [facility] [address] [id number] [place] [address] 74[address] Nov, [facility] [place] [facility] [address] [id number] [place] [address] Nov, [facility] [place] [facility] [address] [id number] [place] [address] Nov, [facility] [place] [facility] [address] [id number] [place] [address] Nov, [facility] [place] [facility] [address] [id number] [place] [address]- 2594 Nov, [facility] [place] [facility] [address] [id number] [place] [address] Nov, [facility] [place] [facility] [address] [id number] [place] [address]558 Nov, [facility] [place] [facility] [address] [id number] [place] [address]- [address]28 Nov, [facility] [place] [facility] [address] [id number] [place] [address]- 66[address] Nov, [facility] [place] [facility] [address] [id number] [place] [address] 1637 Nov, [facility] [place] [facility] [address] [id number] [place] [address] Nov, [facility] [place] [facility] [address] [id number] [place] [address] Nov, [facility] [place] [facility] [address] [id number] [place] [address] 5712 Nov, [facility] [place] [facility] [address] [id number] [place] [address] 4534 Nov, [facility] [place] [facility] [address] [id number] [place] [address] 8713 Oct, [facility] [place] [facility] [address] [id number] [place] [address] 3280 Oct, [facility] [place] [facility] [address] [id number] [place] [address] 0747 Oct, [facility] [place] [facility] [address] [id number] [place] [address] 4463 Oct, [facility] [place] [facility] [address] [id number] [place] [address] 4857 Oct, [facility] [place] [facility] [address] [id number] [place] [address] 3495 Oct, [facility] [place] [facility] [address] [id number] [place] [address] 5605 Oct, [facility] [place] [facility] [address] [id number] [place] [address] 0631 Oct, [facility] [place] [facility] [address] [id number] [place] [address] 9622 Oct, [facility] [place] [facility] [address] [id number] [place] [address]- 4459 Oct, [facility] [place] [facility] [address] [id number] [place] [address] 7326 Oct, [facility] [place] [facility] [address] [id number] [place] [address]- 6108 Oct, [facility] [place] [facility] [address] [id number] [place] [address] 1646 Oct, [facility] [place] [facility] [address] [id number] [place] [address]- 3711 Oct, [facility] [place] [facility] [address] [id number] [place] [address]- 9592 Oct, [facility] [place] [facility] [address] [id number] [place] [address]- 5894 Sep, [facility] [place] [facility] [address] [id number] [place] [address]- 7248 Sep, [facility] [place] [facility] [address] [id number] [place] [address]- 3542 25 Sep, 2013 [facility] [place] [facility] [address] [id number] [place] [address]- 9699 Sep, [facility] [place] [facility] [address] [id number] [place] [address]- 3169 Sep, [facility] [place] [facility] [address] [id number] [place] [address]- 2700 Sep, [facility] [place] [facility] [address] [id number] [place] [address]- 5893 18 Sep, 2013 [facility] [place] [facility] [address] [id number] [place] [address]- 5785 18 Sep, 2013 [facility] [place] [facility] [address] [id number] [place] [address]- 1489 17 Sep, 2013 [facility] [place] [facility] [address] [id number] [place] [address]- 1310 16 Sep, 2013 [facility] [place] [facility] [address] [id number] [place] [address]- 8832 16 Sep, 2013 [facility] [place] [facility] [address] [id number] [place] [address]- 9202 Sep, [facility] [place] [facility] [address] [id number] [place] [address]- 3402 16 Sep, 2013 [facility] [place] [facility] [address] [id number] [place] [address]- 7558 Sep, [facility] [place] [facility] [address] [id number] [place] [address]- 1497 Sep, [facility] [place] [facility] [address] [id number] [place] [address]- 6256 09 Sep, 2013 [facility] [place] [facility] [address] [id number] [place] [address]- 4864 09 Sep, 2013 [facility] [place] [facility] [address] [id number] [place] [address]- 9338 Sep, [facility] [place] [facility] [address] [id number] [place] [address]- 3020 Sep, [facility] [place] [facility] [address] [id number] [place] [address]- 3756 Sep, [facility] [place] [facility] [address] [id number] [place] [address]- 5618 Sep, [facility] [place] [facility] [address] [id number] [place] [address]- 6947 Sep, [facility] [place] [facility] [address] [id number] [place] [address] 6064 August, [facility] [place] [facility] [address] [id number] [place] [address]- 3878 August, [facility] [place] [facility] [address] [id number] [place] [address]- 4014 August, [facility] [place] [facility] [address] [id number] [place] [address]- 0548 August, [facility] [place] [facility] [address] [id number] [place] [address]- 5667 August, [facility] [place] [facility] [address] [id number] [place] [address]- 3349 August, [facility] [place] [facility] [address] [id number] [place] [address]- 9444 August, [facility] [place] [facility] [address] [id number] [place] [address]- 7390 August, [facility] [place] [facility] [address] [id number] [place] [address]- 8327 August, [facility] [place] [facility] [address] [id number] [place] [address]- 8341 August, [facility] [place] [facility] [address] [id number] [place] [address]- 3997 August, [facility] [place] [facility] [address] [id number] [place] [address]- 0180 August, [facility] [place] [facility] [address] [id number] [place] [address]- 2482 August, [facility] [place] [facility] [address] [id number] [place] [address]- 0341 August, [facility] [place] [facility] [address] [id number] [place] [address]- 4290 August, [facility] [place] [facility] [address] [id number] [place] [address]- 9107 August, [facility] [place] [facility] [address] [id number] [place] [address]- 9406 August, [facility] [place] [facility] [address] [id number] [place] [address]- 9266 August, [facility] [place] [facility] [address] [id number] [place] [address]- 3999 Jul, [facility] [place] [facility] [address] [id number] [place] [address]- 5333 Jul, [facility] [place] [facility] [address] [id number] [place] [address]- 6963 Jul, [facility] [place] [facility] [address] [id number] [place] [address]- 7028 Jul, [facility] [place] [facility] [address] [id number] [place] [address]- 2815 Jul, [facility] [place] [facility] [address] [id number] [place] [address]- 5175 Jul, [facility] [place] [facility] [address] [id number] [place] [address]- 0633 Jul, [facility] [place] [facility] [address] [id number] [place] [address]- 8355 Jul, [facility] [place] [facility] [address] [id number] [place] [address]- 2348 Jul, [facility] [place] [facility] [address] [id number] [place] [address]- 4039 21 Jul, 2013 [facility] [place] [facility] [address] [id number] [place] [address]- 0839 21 Jul, 2013 [facility] [place] [facility] [address] [id number] [place] [address]- 2305 18 Jul, 2013 [facility] [place] [facility] [address] [id number] [place] [address]- 4618 18 Jul, 2013 [facility] [place] [facility] [address] [id number] [place] [address]- 9861 17 Jul, 2013 [facility] [place] [facility] [address] [id number] [place] [address]- 1888 17 Jul, 2013 [facility] [place] [facility] [address] [id number] [place] [address]- 7259 17 Jul, 2013 [facility] [place] [facility] [address] [id number] [place] [address]- 3792 17 Jul, 2013 [facility] [place] [facility] [address] [id number] [place] [address]- 1311 16 Jul, 2013 [facility] [place] [facility] [address] [id number] [place] [address]- 9354 16 Jul, 2013 [facility] [place] [facility] [address] [id number] [place] [address]- 9060 15 Jul, 2013 [facility] [place] [facility] [address] [id number] [place] [address]- 4815 15 Jul, 2013 [facility] [place] [facility] [address] [id number] [place] [address]- 7015 14 Jul, 2013 [facility] [place] [facility] [address] [id number] [place] [address]- 9183 14 Jul, 2013 [facility] [place] [facility] [address] [id number] [place] [address]- 6205 12 Jul, 2013 [facility] [place] [facility] [address] [id number] [place] [address]- 2586 12 Jul, 2013 [facility] [place] [facility] [address] [id number] [place] [address]- 3532 Jul, [facility] [place] [facility] [address] [id number] [place] [address]- 4194 Jul, [facility] [place] [facility] [address] [id number] [place] [address]- 5824 Jul, [facility] [place] [facility] [address] [id number] [place] [address]- 3610 Jul, [facility] [place] [facility] [address] [id number] [place] [address]- 1528 17 Jun, 2013 [facility] [place] [facility] [address] [id number] [place] [address]- 4448 17 Jun, 2013 [facility] [place] [facility] [address] [id number] [place] [address]- 5197 17 Jun, 2013 [facility] [place] [facility] [address] [id number] [place] [address]- 5077 17 Jun, 2013 [facility] [place] [facility] [address] [id number] [place] [address]- 0290 13 Jun, 2013 [facility] [place] [facility] [address] [id number] [place] [address]- 2444 13 Jun, 2013 [facility] [place] [facility] [address] [id number] [place] [address]- 2436 11 Jun, 2013 [facility] [place] [facility] [address] [id number] [place] [address]- 6412 11 Jun, 2013 [facility] [place] [facility] [address] [id number] [place] [address]- 4576 10 Jun, 2013 [facility] [place] [facility] [address] [id number] [place] [address]- 1527 10 Jun, 2013 [facility] [place] [facility] [address] [id number] [place] [address]- 8572 04 Jun, 2013 [facility] [place] [facility] [address] [id number] [place] [address]- 9181 Jun, [facility] [place] [facility] [address] [id number] [place] [address]- 9139 May, [facility] [place] [facility] [address] [id number] [place] [address]- 8896 May, [facility] [place] [facility] [address] [id number] [place] [address]- 1301 May, [facility] [place] [facility] [address] [id number] [place] [address]- 3186 May, [facility] [place] [facility] [address] [id number] [place] [address]- 2470 May, [facility] [place] [facility] [address] [id number] [place] [address]- 9055 May, [facility] [place] [facility] [address] [id number] [place] [address]- 6516 May, [facility] [place] [facility] [address] [id number] [place] [address]- 8536 May, [facility] [place] [facility] [address] [facility] [id number] [place] [address]- 1040 May, [facility] [place] [facility] [address] [id number] [place] [address]- 8841 May, [facility] [place] [facility] [address] [id number] [place] [address]- 2823 Apr, [facility] [place] [facility] [address] [id number] [place] [address]- 0146 Apr, [facility] [place] [facility] [address] [id number] [place] [address]- 9337 Apr, [facility] [place] [facility] [address] [id number] [place] [address]- 2917 Apr, [facility] [place] [facility] [address] [id number] [place] [address]- 2546 Apr, [facility] [place] [facility] [address] [id number] [place] [address]- 4173 Apr, [facility] [place] [facility] [address] [id number] [place] [address]- 7656 Apr, [facility] [place] [facility] [address] [id number] [place] [address]- 3488 Apr, [facility] [place] [facility] [address] [id number] [place] [address]- 8470 Apr, [facility] [place] [facility] [address] [id number] [place] [address]- 7579 Apr, [facility] [place] [facility] [address] [id number] [place] [address]- 2785 Mar, [facility] [place] [facility] [address] [id number] [place] [address]- 2328 Mar, [facility] [place] [facility] [address] [id number] [place] [address]- 1756 Mar, [facility] [place] [facility] [address] [id number] [place] [address]- 2786 Mar, [facility] [place] [facility] [address] [id number] [place] [address]- 3125 Mar, [facility] [place] [facility] [address] [id number] [place] [address]- 6516 Mar, [facility] [place] [facility] [address] [id number] [place] [address]- 8985 Feb, [facility] [place] [facility] [address] [id number] [place] [address]- 1999 Feb, [facility] [place] [facility] [address] [id number] [place] [address]- 8870 Feb, [facility] [place] [facility] [address] [id number] [place] [address]- 0821 Jan, [facility] [place] [facility] [address] [id number] [place] [address]- 2900 30 Jan, 2013 [facility] [address] [id number] [place] [address]- 1795 Jan, [facility] [place] [facility] [address] [id number] [place] [address]- 6623 Jan, [facility] [address] [id number] [place] [address]- 3024 Jan, [facility] [place] [facility] [address] [id number] [place] [address]- 1784 15 Jan, 2013 [facility] [address] [id number] [place] [address]- 3423 Jan, [facility] [place] [facility] [address] [id number] [place] [address]- 6167 Jan, [facility] [place] [facility] [address] [id number] [place] [address]- 0738 Jan, [facility] [address] [id number] [place] [address]- 4979 Jan, [facility] [place] [facility] [address] [id number] [place] [address]- 7121 30 Dec, 2012 [facility] [place] [facility] [address] [id number] [place] [address]- 9778 25 Dec, 2012 [facility] [place] [facility] [address] [id number] [place] [address]- 254 11 Dec, 2012 [facility] [place] [facility] [address] [id number] [place] [address]- 2545 09 Dec, 2012 [facility] [place] [facility] [address] [id number] [place] [address]- 6066 05 Dec, 2012 [facility] [place] [facility] [address] [id number] [place] [address]- 6215 04 Dec, 2012 [facility] [place] [facility] [address] [id number] [place] [address]- 3876 Nov, [facility] [place] [facility] [address] [id number] [place] [address]- 3228 Nov, [facility] [place] [facility] [address] [id number] [place] [address]- 4612 Nov, [facility] [place] [facility] [address] [id number] [place] [address]- 1832 Nov, [facility] [place] [facility] [address] [id number] [place] [address]- 3699 Nov, [facility] [place] [facility] [address] [id number] [place] [address]- 9738 Nov, [facility] [place] [facility] [address] [id number] [place] [address]- 2117 Nov, [facility] [place] [facility] [address] [id number] [place] [address]- 8781 Nov, [facility] [place] [facility] [address] [id number] [place] [address]- 9784 Nov, [facility] [place] [facility] [address] [id number] [place] [address]- 5739 Nov, [facility] [place] [facility] [address] [id number] [place] [address]- 1581 Nov, [facility] [place] [facility] [address] [id number] [place] [address]- 6608 Nov, [facility] [place] [facility] [address] [id number] [place] [address]- 1650 Oct, [facility] [place] [facility] [address] [id number] [place] [address]- 8721 Oct, [facility] [place] [facility] [address] [id number] [place] [address]- 4650 Oct, [facility] [place] [facility] [address] [id number] [place] [address]- 7888 Sep, [facility] [place] [facility] [address] [id number], [place] [address]- 4059 Sep, [facility] [address] [id number] [place] [address]- 4947 Sep, [facility] [address] [id number] [place] [address] August, [facility] [address] [id number] [place] [address]- 9963 August, [facility] [address] [id number] [place] [address]- 7655 August, [facility] [address] [id number] [place] [address]- 1079 August, [facility] [address] [id number] [place] [address]- 6987 August, [facility] [address] [id number] [place] [address]- 7980 August, [facility] [address] [id number] [place] [address]- 9961 Jul, [facility] [address] [id number] [place] [address]- 9279 Jul, [facility] [address] [id number] [place] [address]- 4139 Jul, [facility] [address] [id number] [place] [address]- 6817 Jul, [facility] [address] [id number] [place] [address]- 9697 Jul, [facility] [address] [id number] [place] [address]- 5517 Jul, [facility] [address] [id number] [place] [address]356 Jun, [facility] [address] [id number] [place] [address]- 0237 Jun, [facility] [place] [facility] [address] [id number] [place] [address]- 2930 18 Jun, 2012 [facility] [place] [facility] [address] [id number] [place] [address]- 2990 14 Jun, 2012 [facility] [place] [facility] [address] [id number] [place] [address]- 7375 04 Jun, 2012 [facility] [place] [facility] [address] [id number] [place] [address]- 6504 13 May, 2012 [facility] [place] [facility] [address] [id number] [place] [address] 12 May, 2012 [facility] [place] [facility] [address] [id number] [place] [address] May, [facility] [place] [facility] [address] [id number] [place] [address] 08 May, 2012 [facility] [place] [facility] [address] [id number] [place] [address] 1697 Apr, [facility] [place] [facility] [address] [id number] [place] [address] Apr, [facility] [place] [facility] [address] [id number] [place] [address] Apr, [facility] [place] [facility] [address] [id number] [place] [address] Mar, [facility] [place] [facility] [address] [id number] [place] [address] Mar, [facility] [place] [facility] [address] [id number] [place] [address] 27[address] Mar, [facility] [place] [facility] [address] [id number] [place] [address]393 Mar, [facility] [place] [facility] [address] [id number] [place] [address] 19 Mar, 2012 [facility] [place] [facility] [address] [id number] [place] [address] Mar, [facility] [place] [facility] [address] [id number] [place] [address]208 Mar, [facility] [place] [facility] [address] [id number] [place] [address]245 Mar, [facility] [place] [facility] [address] [id number] [place] [address] 5210 Feb, [facility] [place] [facility] [address] [id number] [place] [address] 9347 Feb, [facility] [place] [facility] [address] [id number] [place] [address] 63[address] Feb, [facility] [place] [facility] [address] [id number] [place] [address] Feb, [facility] [place] [facility] [address] [id number] [place] [address] 6260 Feb, [facility] [place] [facility] [address] [id number] [place] [address]101 Feb, [facility] [place] [facility] [address] [id number] [place] [address] 0960 Feb, [facility] [place] [facility] [address] [id number] [place] [address] 58[address] Feb, [facility] [place] [facility] [address] [id number] [place] [address] 115[address] Feb, [facility] [place] [facility] [address] [id number] [place] [address] 0296 Feb, [facility] [place] [facility] [address] [id number] [place] [address] 9512 Feb, [facility] [place] [facility] [address] [id number] [place] [address] 4[address] Feb, [facility] [place] [facility] [address] [id number] [place] [address]290 Feb, [facility] [place] [facility] [address] [id number] [place] [address] 6[address] 07 Feb, 2012 [facility] [place] [facility] [address] [id number] [place] [address] 64[address] Feb, [facility] [place] [facility] [address] [id number] [place] [address] 0608 Feb, [facility] [place] [facility] [address] [id number] [place] [address] 8072 Feb, [facility] [place] [facility] [address] [id number] [place] [address] 9168 Feb, [facility] [place] [facility] [address] [id number] [place] [address], [place] [address]- [address]271 Jan, [facility] [place] [facility] [address] [id number] [place] [address]285 Jan, [facility] [place] [facility] [address] [id number] [place] [address]- 6029 Jan, [facility] [place] [facility] [address] [id number] [place] [address] 6925 Jan, [facility] [place] [facility] [address] [facility] [id number] [place] [address] 7087 20 Jan, 2012 [facility] [place] [facility] [address] [facility] [id number] [place] [address]- 7944 19 Jan, 2012 [facility] [place] [facility] [address] [id number] [place] [address] 2080 18 Jan, 2012 [facility] [place] [facility] [address] [id number] [place] [address] 3703 18 Jan, 2012 [facility] [place] [facility] [address] [id number] [place] [address] 15 Jan, 2012 [facility] [place] [facility] [address] [facility] [id number] [place] [address] 0286 15 Jan, 2012 [facility] [place] [facility] [address] [id number] [place] [address] 6477 Jan, [facility] [place] [facility] [address] [id number] [place] [address]157 Jan, [facility] [place] [facility] [address] [id number] [place] [address]- 7500 Jan, [facility] [place] [facility] [address] [id number] [place] [address]- 7786 Jan, [facility] [place] [facility] [address] [id number] [place] [address] 1715 Jan, [facility] [place] [facility] [address] [id number] [place] [address]- 3787 29 Dec, 2011 [facility] [place] [facility] [address] [id number] [place] [address] 5803 28 Dec, 2011 [facility] [place] [facility] [address] [id number] [place] [address]- 5989 27 Dec, 2011 [facility] [place] [facility] [address] [id number] [place] [address]806 26 Dec, 2011 [facility] [place] [facility] [address] [id number] [place] [address] 4843 Nov, [facility] [place] [facility] [address] [id number] [place] [address] 3092 Nov, [facility] [place] [facility] [address] [id number] [place] [address] 0940 Nov, [facility] [place] [facility] [address] [id number], [place] [address]- 3469 Nov, [facility] [place] [facility] [address] [id number] [place] [address]- 5830 Nov, [facility] [place] [facility] [address] [id number] [place] [address]- 9917 Nov, [facility] [place] [facility] [address] [id number] [place] [address]- 3840 Nov, [facility] [place] [facility] [address] [id number], [place] [address]- 8[address] Nov, [facility] [place] [facility] [address] [id number] [place] [address]- 6705 Nov, [facility] [place] [facility] [address] [id number] [place] [address]- 2436 Nov, [facility] [place] [facility] [address] [id number] [place] [address]- 4431 Nov, [facility] [place] [facility] [address] [id number] [place] [address]- 9673 Oct, [facility] [place] [facility] [address] [id number] [place] [address]- 5597 Oct, [facility] [place] [facility] [address] [id number] [place] [address]- 1297 Oct, [facility] [place] [facility] [address] [id number] [place] [address]- 3347 Oct, [facility] [place] [facility] [address] [id number] [place] [address]- 4916 Oct, [facility] [place] [facility] [address] [id number] [place] [address]- 9325 Oct, [facility] [place] [facility] [address] [id number] [place] [address]- 9468 Oct, [facility] [place] [facility] [address] [id number] [place] [address]- 0832 Oct, [facility] [place] [facility] [address] [id number] [place] [address]- 4606 Sep, [facility] [place] [facility] [address] [id number] [place] [address]- 9532 Sep, [facility] [place] [facility] [address] [id number] [place] [address]- 6851 Sep, [facility] [place] [facility] [address] [address] [id number] [place] [address] Sep, [facility] [place] [facility] [address] [id number] [place] [address] Sep, [facility] [place] [facility] [address] [id number] [place] [address] Sep, [facility] [place] [facility] [address] [id number] [place] [address] Sep, [facility] [place] [facility] [address] [id number] [place] [address] August, [facility] [place] [facility] [address] [id number] [place] [address] August, [facility] [place] [facility] [address] [id number] [place] [address] August, [facility] [place] [facility] [address] [id number] [place] [address] August, [facility] [place] [facility] [address] [id number] [place] [address] August, [facility] [place] [facility] [address] [id number] [place] [address] August, [facility] [place] [facility] [address] [id number] [place] [address] August, [facility] [place] [facility] [address] [id number] [place] [address] August, [facility] [place] [facility] [address] [id number] [place] [address] 28 Jul, 2011 [facility] [place] [facility] [address] [id number] [place] [address] 17 Jul, 2011 [facility] [place] [facility] [address] [id number] [place] [address] 13 Jul, 2011 [facility] [place] [facility] [address] [id number] [place] [address] 11 Jul, 2011 [facility] [place] [facility] [address] [id number] [place] [address]41 05 Jul, 2011 [facility] [place] [facility] [address] [id number] [place] [address] 28 Jun, 2011 [facility] [place] [facility] [address] [id number] [place] [address] 2011 [facility] [place] [facility] [address] [id number] [place] [address] 20 Jun, 2011 [facility] [place] [facility] [address] [id number] [place] [address] 6070 19 Jun, 2011 [facility] [place] [facility] [address] [id number] [place] [address] 12 Jun, 2011 [facility] [place] [facility] [address] [id number] [place] [address] 9[address] 12 Jun, 2011 [facility] [place] [facility] [address] [id number] [place] [address] Jun, [facility] [place] [facility] [address] [id number] [place] [address] 07 Jun, 2011 [facility] [place] [facility] [address] [id number] [place] [address]- [address] 06 Jun, 2011 [facility] [place] [facility] [address] [id number] [place] [address] 27 May, 2011 [facility] [place] [facility] [address] [id number] [place] [address] 24 May, 2011 [facility] [place] [facility] [address] [id number] [place] [address]- [address]66 23 May, 2011 [facility] [place] [facility] [address] [id number] [place] [address]90 23 May, 2011 [facility] [place] [facility] [address] [id number] [place] [address]204 11 May, 2011 [facility] [place] [facility] [address] [id number] [place] [address]10 10 May, 2011 [facility] [place] [facility] [address] [id number] [place] [address] 2546 07 May, 2011 [facility] [address] [id number] [place] [address] May, [facility] [place] [facility] [address] [id number] [place] [address] Apr, [facility] [address] [id number] [place] [address] Apr, [facility] [place] [facility] [address] [id number] [place] [address] Apr, [facility] [address] [id number] [place] [address]76 Apr, [facility] [address] [id number] [place] [address] Apr, [facility] [address] [id number] [place] [address] 1636 Apr, [facility] [address] [id number] [place] [address] Mar, [facility] [address] [id number] [place] [address]27 29 Mar, 2011 [facility] [address] [id number] [place] [address] Mar, [facility] [place] [facility] [address] [id number] [place] [address] 3036 19 Mar, 2011 [facility] [place] [facility] [address] [id number] [place] [address] 2546 15 Mar, 2011 [facility] [place] [facility] [address] [id number] [place] [address] 2546 13 Mar, 2011 [facility] [place] [facility] [address] [id number] [place] [address] 2546 13 Mar, 2011 [facility] [place] [facility] [address] [id number] [place] [address] Mar, [facility] [place] [facility] [address] [id number] [place] [address] 2807 Mar, [facility] [place] [facility] [address] [id number] [place] [address] 2929 Mar, [facility] [place] [facility] [address] [id number] [place] [address] Mar, [facility] [place] [facility] [address] [id number] [place] [address] 4614 Mar, [facility] [place] [facility] [address] [id number] [place] [address]- 3059 Mar, [facility] [place] [facility] [address] [id number] [place] [address] 0399 Feb, [facility] [place] [facility] [address] [id number] [place] [address] 4103 Feb, [facility] [place] [facility] [address] [id number], [place] [address]- 1660 Feb, [facility] [place] [facility] [address] [id number] [place] [address] 59[address] Feb, [facility] [place] [facility] [address] [facility] [id number], [place] [address] Feb, [facility] [place] [facility] [address] [id number], [place] [address]- 2433 Feb, [facility] [place] [facility] [address] [id number], [place] [address]- 6[address] Feb, [facility] [place] [facility] [address] [id number], [place] [address]- [address] Jan, [facility] [place] [facility] [address] [id number], [place] [address]- [address] Jan, [facility] [place] [facility] [address] [facility] [id number], [place] [address]- [address] Jan, [facility] [place] [facility] [id number], [place] [address] 15 Nov, 2010 [facility] [id number], [place] [address] Mar, [facility] [id number], [place] [address] Mar, [facility] [id number], [place] [address] 47[address] Mar, [facility] [id number], [place] [address] Mar, [facility] [id number] [place] [address] Mar, [facility] [id number], [place] [address] 30 Feb, 2010 [facility] [id number], [place] [address] 30 Feb, 2010 [facility] [id number], [place] [address] Feb, [facility] [id number], [place] [address]- 7034 Feb, [facility] [id number], [place] [address] Feb, [facility] [id number] [address] Feb, IMMUNIZATIONS No Known Immunizations SOCIAL HISTORY Never Assessed REASON FOR VISIT Weight check PLAN OF CARE VITAL SIGNS Height 60 in 2016-11-20 Weight 210.6 lbs 2016-11-20 BMI 41.13 kg/m2 2016-11-20 MEDICATIONS Unknown Medications RESULTS No Results PROCEDURES [...]
--- OUTSIDE RECORDS SUMMARY | 2017-08-08 00:11 | XMS REPORT ---
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 [id number] [place] [address]- 7924 Jun, [facility] [place] [facility] [address] [id number] [place] [address]- 0524 Jun, [facility] [place] [facility] [address] [id number] [place] [address]- 1691 Jun, 2014 [facility] [place] [facility] [address] [id number] [place] [address]- 7394 Jun, 2014 [facility] [place] [facility] [address] [id number] [place] [address]- 1179 Jun, [facility] [place] [facility] [address] [facility] [id number] [place] [address]- 3832 Jun, [facility] [place] [facility] [address] [facility] [id number] [place] [address]- 9582 Jun, [facility] [place] [facility] [address] [facility] [id number] [place] [address]- 4228 Jun, [facility] [place] [facility] [address] [facility] [id number] [place] [address]- 0353 May, 2014 [facility] [place] [facility] [address] [facility] [id number] [place] [address]- 4692 May, 2014 [facility] [place] [facility] [address] [facility] [id number] [place] [address]- 9994 May, 2014 [facility] [place] [facility] [address] [id number] [place] [address]- 8421 May, [facility] [place] [facility] [address] [id number] [place] [address]- 1167 May, 2014 [facility] [place] [facility] [address] [facility] [id number] [place] [address]- 2649 May, 2014 [facility] [place] [facility] [address] [facility] [id number] [address]- 2196 May, 2014 [facility] [place] [facility] [address] [id number] [place] [address]- 3676 May, 2014 [facility] [place] [facility] [address] [id number] [place] [address]- 9566 May, 2014 [facility] [place] [facility] [address] [facility] [id number] [place] [address]- 6126 May, 2014 [facility] [place] [facility] [address] [id number] [place] [address]- 1761 May, 2014 [facility] [place] [facility] [address] [id number] [place] [address]- 4702 May, 2014 [facility] [place] [facility] [address] [facility] [id number] [place] [address]- 4808 May, 2014 [facility] [place] [facility] [address] [facility] [id number] [place] [address]- 7314 May, 2014 [facility] [place] [facility] [address] [facility] [id number] [place] [address]- 0003 May, [facility] [place] [facility] [id number] [place] [address]- 8461 May, [facility] [place] [facility] [address] [facility] [id number] [place] [address]- 0885 Apr, [facility] [place] [facility] [address] [facility] [id number] [place] [address]- 6245 Apr, [facility] [place] [facility] [address] [id number] [place] [address]- 2543 Apr, [facility] [place] [facility] [address] [facility] [id number] [place] [address]- 3892 Apr, [facility] [place] [facility] [address] [facility] [id number] [place] [address]- 3059 Apr, [facility] [place] [facility] [address] [facility] [id number] [place] [address]- 6248 Apr, [facility] [place] [facility] [address] [id number] [place] [address]- 4344 Apr, [facility] [place] [facility] [address] [id number] [place] [address]- 3015 Apr, [facility] [place] [facility] [address] [id number] [place] [address]- 5444 Apr, [facility] [place] [facility] [address] [id number] [place] [address]- 9839 Apr, [facility] [place] [facility] [address] [id number] [place] [address]- 1271 Apr, [facility] [place] [facility] [address] [id number] [place] [address]- 2288 Apr, [facility] [place] [facility] [address] [id number] [place] [address]- 5340 Apr, [facility] [place] [facility] [address] [id number] [place] [address]- 4574 Apr, [facility] [place] [facility] [address] [id number] [place] [address]- 3710 Apr, [facility] [place] [facility] [address] [id number] [place] [address]- 5038 Mar, [facility] [place] [facility] [address] [id number] [place] [address]- 9196 Mar, [facility] [place] [facility] [address] [id number] [place] [address]- 3961 Mar, [facility] [place] [facility] [address] [id number] [place] [address]- 2952 Mar, [facility] [place] [facility] [address] [id number] [place] [address]- 5045 Mar, [facility] [place] [facility] [address] [id number] [place] [address]- 9355 Mar, [facility] [place] [facility] [address] [id number] [place] [address]- 2128 15 Mar, 2014 [facility] [place] [facility] [address] [id number] [place] [address]- 6368 15 Mar, 2014 [facility] [place] [facility] [address] [id number] [place] [address]- 5796 15 Mar, 2014 [facility] [place] [facility] [address] [id number] [place] [address]- 9370 15 Mar, 2014 [facility] [place] [facility] [address] [id number] [place] [address]- 1520 15 Mar, 2014 [facility] [place] [facility] [address] [id number] [place] [address]- 3160 15 Mar, 2014 [facility] [place] [facility] [address] [id number] [place] [address]- 3834 12 Mar, 2014 [facility] [place] [facility] [address] [id number] [place] [address]- 2129 12 Mar, 2014 [facility] [place] [facility] [address] [id number] [place] [address]- 5129 Mar, [facility] [place] [facility] [address] [id number] [place] [address]- 6362 Mar, [facility] [place] [facility] [address] [id number] [place] [address]- 0220 Mar, [facility] [place] [facility] [address] [id number] [place] [address]- 7741 Mar, [facility] [place] [facility] [address] [id number] [place] [address]- 0365 Feb, [facility] [place] [facility] [address] [id number] [place] [address]- 9006 Feb, [facility] [place] [facility] [address] [id number] [place] [address]- 2484 Feb, [facility] [place] [facility] [address] [id number] [place] [address]- 5676 Feb, [facility] [place] [facility] [address] [id number] [place] [address]- 5634 Feb, [facility] [place] [facility] [address] [id number] [place] [address]- 6492 Feb, [facility] [place] [facility] [address] [id number] [place] [address]- 4033 Feb, [facility] [place] [facility] [address] [id number] [place] [address]- 4906 Feb, [facility] [place] [facility] [address] [id number] [place] [address]- 5979 Jan, [facility] [place] [facility] [address] [id number] [place] [address]- 1487 Jan, [facility] [place] [facility] [address] [id number] [place] [address]- 0066 Jan, [facility] [place] [facility] [address] [id number] [place] [address]- 4449 Jan, [facility] [place] [facility] [address] [id number] [place] [address]- 9871 Jan, [facility] [place] [facility] [address] [id number] [place] [address]- 9086 Jan, [facility] [place] [facility] [address] [id number] [place] [address]- 7372 Jan, [facility] [place] [facility] [address] [id number] [place] [address]- 2320 Jan, [facility] [place] [facility] [address] [id number] [place] [address]- 0827 Jan, [facility] [place] [facility] [address] [id number] [place] [address]- 6063 Jan, [facility] [place] [facility] [address] [id number] [place] [address]- 9404 Jan, [facility] [place] [facility] [address] [id number] [place] [address]- 5477 Jan, [facility] [place] [facility] [address] [id number] [place] [address]- 9822 Jan, [facility] [place] [facility] [address] [id number] [place] [address]- 8634 Jan, [facility] [place] [facility] [address] [id number] [place] [address]- 3008 16 Jan, 2014 [facility] [place] [facility] [address] [id number] [place] [address]- 3499 16 Jan, 2014 [facility] [place] [facility] [address] [id number] [place] [address]- 3661 Jan, [facility] [place] [facility] [address] [id number] [place] [address]- 2198 Jan, [facility] [place] [facility] [address] [id number] [place] [address]- 0371 29 Dec, 2013 [facility] [place] [facility] [address] [id number] [place] [address]- 3778 29 Dec, 2013 [facility] [place] [facility] [address] [id number] [place] [address]- 9544 26 Dec, 2013 [facility] [place] [facility] [address] [id number] [place] [address]- 7921 26 Dec, 2013 [facility] [place] [facility] [address] [id number], [place] [address]- 2115 26 Dec, 2013 [facility] [place] [facility] [address] [id number], [place] [address]- 2540 26 Sep, 2013 [facility] [place] [facility] [address] [id number] [place] [address] 2547 23 Dec, 2013 [facility] [place] [facility] [address] [id number] [place] [address]- 254 23 Dec, 2013 [facility] [place] [facility] [address] [id number] [place] [address]- 2547 22 Dec, 2013 [facility] [place] [facility] [address] [id number] [place] [address]- 9628 22 Dec, 2013 [facility] [place] [facility] [address] [id number] [place] [address] 2546 16 Dec, 2013 [facility] [place] [facility] [address] [id number] [place] [address] 2546 16 Dec, 2013 [facility] [place] [facility] [address] [id number] [place] [address] 2546 15 Dec, 2013 [facility] [place] [facility] [address] [id number] [place] [address] 254 15 Dec, 2013 [facility] [place] [facility] [address] [id number] [place] [address] 09 Dec, 2013 [facility] [place] [facility] [address] [id number] [place] [address] Dec, 2013 [facility] [place] [facility] [address] [id number] [place] [address] Dec, 2013 [facility] [place] [facility] [address] [id number] [place] [address] Nov, [facility] [place] [facility] [address] [id number] [place] [address] Nov, [facility] [place] [facility] [address] [id number] [place] [address] Nov, [facility] [place] [facility] [address] [id number] [place] [address] Nov, [facility] [place] [facility] [address] [id number] [place] [address] Nov, [facility] [place] [facility] [address] [id number] [place] [address]- [address] Nov, [facility] [place] [facility] [address] [id number] [place] [address] Nov, [facility] [place] [facility] [address] [id number] [place] [address]- [address] Nov, [facility] [place] [facility] [address] [id number] [place] [address] Nov, [facility] [place] [facility] [address] [id number] [place] [address]- [address]83 Nov, [facility] [place] [facility] [address] [id number] [place] [address] 119[address] Nov, [facility] [place] [facility] [address] [id number] [place] [address]- [address] Nov, [facility] [place] [facility] [address] [id number] [place] [address]- [address]27 Nov, [facility] [place] [facility] [address] [id number] [place] [address]- 0468 Nov, [facility] [place] [facility] [address] [id number] [place] [address]- 46[address] Nov, [facility] [place] [facility] [address] [id number] [place] [address]- 3905 Nov, [facility] [place] [facility] [address] [id number] [place] [address]- [address] Nov, [facility] [place] [facility] [address] [id number] [place] [address] Nov, [facility] [place] [facility] [address] [id number] [place] [address] Nov, [facility] [place] [facility] [address] [id number] [place] [address]- [address]10 Nov, [facility] [place] [facility] [address] [id number] [place] [address] Nov, [facility] [place] [facility] [address] [id number] [place] [address]696 Oct, [facility] [place] [facility] [address] [id number] [place] [address] Oct, [facility] [place] [facility] [address] [id number] [place] [address]294 Oct, [facility] [place] [facility] [address] [id number] [place] [address]- 99[address] Oct, [facility] [place] [facility] [address] [id number] [place] [address]- 39[address] Oct, [facility] [place] [facility] [address] [id number] [place] [address] 9760 Oct, [facility] [place] [facility] [address] [id number] [place] [address] 9350 Oct, [facility] [place] [facility] [address] [id number] [place] [address] 4[address] Oct, [facility] [place] [facility] [address] [id number] [place] [address]558 Oct, [facility] [place] [facility] [address] [id number] [place] [address]- [address] Oct, [facility] [place] [facility] [address] [id number] [place] [address] 3767 Oct, [facility] [place] [facility] [address] [id number] [place] [address] 2746 Oct, [facility] [place] [facility] [address] [id number] [place] [address] Oct, [facility] [place] [facility] [address] [id number] [place] [address] Oct, [facility] [place] [facility] [address] [id number] [place] [address]- [address] Oct, [facility] [place] [facility] [address] [id number] [place] [address]- 76[address] Sep, [facility] [place] [facility] [address] [id number] [place] [address] Sep, [facility] [place] [facility] [address] [id number] [place] [address]- 5068 Sep, [facility] [place] [facility] [address] [id number] [place] [address]- [address] 25 Sep, 2013 [facility] [place] [facility] [address] [id number] [place] [address]- 39[address] Sep, [facility] [place] [facility] [address] [id number] [place] [address]- [address]366 20 Sep, 2013 [facility] [place] [facility] [address] [id number] [place] [address]- 5966 18 Sep, 2013 [facility] [place] [facility] [address] [id number] [place] [address]- 8638 18 Sep, 2013 [facility] [place] [facility] [address] [id number] [place] [address]- 3765 17 Sep, 2013 [facility] [place] [facility] [address] [id number] [place] [address]- 8815 16 Sep, 2013 [facility] [place] [facility] [address] [id number] [place] [address]- 8246 16 Sep, 2013 [facility] [place] [facility] [address] [id number] [place] [address]- 2630 16 Sep, 2013 [facility] [place] [facility] [address] [id number] [place] [address]- [address] Sep, [facility] [place] [facility] [address] [id number] [place] [address]- 39[address] Sep, [facility] [place] [facility] [address] [id number] [place] [address]- 4658 Sep, [facility] [place] [facility] [address] [id number] [place] [address]- 1432 09 Sep, 2013 [facility] [place] [facility] [address] [id number] [place] [address]- [address] 09 Sep, 2013 [facility] [place] [facility] [address] [id number] [place] [address]- 1412 04 Sep, 2013 [facility] [place] [facility] [address] [id number] [place] [address]- 7068 Sep, [facility] [place] [facility] [address] [id number] [place] [address]- [address] Sep, [facility] [facility] [address] [id number] [place] [address] Sep, [facility] [place] [facility] [address] [id number] [place] [address] Sep, [facility] [place] [facility] [address] [id number] [place] [address] 3340 August, [facility] [place] [facility] [address] [id number] [place] [address] 7[address] August, [facility] [place] [facility] [address] [id number] [place] [address] 3573 August, [facility] [place] [facility] [address] [id number] [place] [address]- 5365 August, [facility] [place] [facility] [address] [id number] [place] [address] 5731 August, [facility] [place] [facility] [address] [id number] [place] [address] 7056 August, [facility] [place] [facility] [address] [id number] [place] [address]- 0612 August, [facility] [facility] [address] [id number] [place] [address] 2628 August, [facility] [place] [facility] [address] [id number] [place] [address]- 6617 August, [facility] [place] [facility] [address] [id number] [place] [address] 0643 August, [facility] [place] [facility] [address] [id number] [place] [address]- 4217 August, [facility] [place] [facility] [address] [id number] [place] [address]- 3980 August, [facility] [place] [facility] [address] [id number] [place] [address]- 0492 August, [facility] [place] [facility] [address] [id number] [place] [address]- 7140 August, [facility] [place] [facility] [address] [id number] [place] [address]- 1878 August, [facility] [place] [facility] [address] [id number] [place] [address]- 6331 August, [facility] [place] [facility] [address] [id number] [place] [address]- 5884 August, [facility] [place] [facility] [address] [id number] [place] [address]- 3607 August, [facility] [place] [facility] [address] [id number] [place] [address]- 3395 Jul, [facility] [place] [facility] [address] [id number] [place] [address]- 5813 Jul, [facility] [place] [facility] [address] [id number] [place] [address]- 7077 Jul, [facility] [place] [facility] [address] [id number] [place] [address]- 3491 Jul, [facility] [place] [facility] [address] [id number] [place] [address]- 8998 Jul, [facility] [place] [facility] [address] [id number] [place] [address]- 3746 Jul, [facility] [place] [facility] [address] [id number] [place] [address]- 7953 Jul, [facility] [place] [facility] [address] [id number] [place] [address] 1950 Jul, [facility] [place] [facility] [address] [id number] [place] [address]- 0696 Jul, [facility] [place] [facility] [address] [id number] [place] [address]- 3212 Jul, [facility] [place] [facility] [address] [id number] [place] [address]- 9183 21 Jul, 2013 [facility] [place] [facility] [address] [id number] [place] [address]- 6911 18 Jul, 2013 [facility] [place] [facility] [address] [id number] [place] [address]- 5372 18 Jul, 2013 [facility] [place] [facility] [address] [id number] [place] [address]- 8871 17 Jul, 2013 [facility] [place] [facility] [address] [id number] [place] [address]- 5404 17 Jul, 2013 [facility] [place] [facility] [address] [id number] [place] [address]- 0663 17 Jul, 2013 [facility] [place] [facility] [address] [id number] [place] [address]- 6290 17 Jul, 2013 [facility] [place] [facility] [address] [id number] [place] [address]- 1506 16 Jul, 2013 [facility] [place] [facility] [address] [id number] [place] [address]- 8869 16 Jul, 2013 [facility] [place] [facility] [address] [id number] [place] [address]- 0272 15 Jul, 2013 [facility] [place] [facility] [address] [id number] [place] [address]- 7628 15 Jul, 2013 [facility] [address] [id number] [place] [address]- 9043 14 Jul, 2013 [facility] [place] [address] [id number] [place] [address]- 1599 14 Jul, 2013 [facility] [place] [address] [id number] [place] [address]- 6257 12 Jul, 2013 [facility] [address] [id number] [place] [address]- 4893 12 Jul, 2013 [facility] [address] [id number] [place] [address]- 2964 Jul, [facility] [address] [id number] [place] [address]- 3663 Jul, [facility] [address] [id number] [place] [address]- 1396 Jul, [facility] [address] [id number] [place] [address]- 0157 Jul, [facility] [address] [id number] [place] [address]- 4084 Jun, [facility] [address] [id number] [place] [address]- 0127 17 Jun, 2013 [facility] [address] [id number] [place] [address]- 5868 17 Jun, 2013 [facility] [address] [id number] [place] [address]- 1065 17 Jun, 2013 [facility] [address] [id number] [place] [address]- 9449 Jun, [facility] [address] [id number] [place] [address]- 7853 13 Jun, 2013 [facility] [address] [id number] [place] [address]- 7460 11 Jun, 2013 [facility] [address] [id number] [place] [address]- 3412 11 Jun, 2013 [facility] [address] [id number] [place] [address]- 2049 10 Jun, 2013 [facility] [address] [id number] [place] [address]- 0734 10 Jun, 2013 [facility] [address] [id number] [place] [address]- 4056 04 Jun, 2013 [facility] [address] [id number] [place] [address]- 2135 04 Jun, 2013 [facility] [address] [id number] [place] [address]- 2963 May, [facility] [address] [id number] [place] [address]- 2007 May, [facility] [address] [id number] [place] [address]- 6306 May, [facility] [address] [id number] [place] [address]- 1576 May, [facility] [address] [id number] [place] [address]- 3720 May, [facility] [address] [id number] [place] [address]- 5188 May, [facility] [address] [id number] [place] [address]- 4401 May, [facility] [address] [id number] [place] [address]- 6341 May, [facility] [address] [id number] [place] [address]- 4169 May, [facility] [address] [facility] [id number] [place] [address]- 6918 May, [facility] [address] [facility] [id number] [place] [address]- 5950 Apr, [facility] [address] [id number] [place] [address]- 3361 Apr, [facility] [address] [id number] [place] [address]- 2006 Apr, [facility] [address] [id number] [place] [address]- 6657 Apr, [facility] [address] [id number] [place] [address]- 6725 Apr, [facility] [address] [id number] [place] [address]- 2546 Apr, [facility] [address] [id number] [place] [address]- 5532 Apr, [facility] [address] [id number] [place] [address]- 7076 Apr, [facility] [address] [id number] [place] [address]- 4207 Apr, [facility] [address] [id number] [place] [address]- 8806 Apr, [facility] [address] [id number] [place] [address]- 8305 Mar, [facility] [address] [id number] [place] [address]- 0105 Mar, [facility] [address] [id number] [place] [address]- 0215 Mar, [facility] [address] [id number] [place] [address]- 6494 Mar, [facility] [address] [id number] [place] [address]- 3219 Mar, [facility] [address] [id number] [place] [address]- 6379 Mar, [facility] [address] [id number] [place] [address]- 5055 Feb, [facility] [address] [id number] [place] [address]- 9805 Feb, [facility] [address] [id number] [place] [address]- 7517 Feb, [facility] [address] [id number] [place] [address]- 8552 Jan, [facility] [address] [id number] [place] [address]- 1135 Jan, [facility] [address] [id number] [place] [address]- 3129 Jan, [facility] [address] [id number] [place] [address]- 1426 Jan, [facility] [address] [id number] [place] [address]- 2846 Jan, [facility] [address] [id number] [place] [address]- 1456 Jan, [facility] [address] [id number] [place] [address]- 3643 Jan, [facility] [address] [id number] [place] Jan, [facility] [address] [id number] [place] [address]- 4903 Jan, [facility] [address] [id number] [place] [address]- 9930 Jan, [facility] [address] [id number] [place] [address]- 8116 30 Dec, 2012 [facility] [address] [id number] [place] [address]- 9794 25 Dec, 2012 [facility] [address] [id number] [place] [address]- 1791 Dec, [facility] [address] [id number] [place] [address] 2544 09 Dec, 2012 [facility] [address] [id number] [place] [address]- 2548 05 Dec, 2012 [facility] [address] [id number] [place] [address]- 7807 04 Dec, 2012 [facility] [address] [id number] [place] [address]- 0319 Nov, [facility] [address] [id number] [place] [address]30 Nov, [facility] [address] [id number] [place] [address]- 7736 Nov, [facility] [address] [id number] [place] [address]- 2830 Nov, [facility] [address] [id number] [place] [address]- 2854 Nov, [facility] [address] [id number] [place] [address]- 4885 Nov, [facility] [address] [id number] [place] [address]- 9038 Nov, [facility] [address] [id number] [place] [address]- 5027 Nov, [facility] [address] [id number] [place] [address]- 3583 Nov, [facility] [address] [id number] [place] [address]- 6554 Nov, [facility] [address] [id number] [place] [address]- 8292 Nov, [facility] [address] [id number] [place] [address]- 5268 Nov, [facility] [address] [id number] [place] [address]- 0381 Oct, [facility] [address] [id number], [place] [address]- 1406 Oct, [facility] [address] [id number] [place] [address]- 2320 Oct, [facility] [address] [id number] [place] [address]- 2147 Sep, [facility] [address] [id number] [place] [address]- 6754 Sep, [facility] [address] [id number], [place] [address]- 1466 Sep, [facility] [address] [id number] [place] [address]- 4929 August, [facility] [address] [id number] [place] [address]- 8204 August, [facility] [address] [id number] [place] [address]- 6995 August, [facility] [address] [id number] [place] [address]- 2244 August, [facility] [address] [id number] [place] [address]- 3925 August, [facility] [address] [id number] [place] [address]- 6810 August, [facility] [address] [id number] [place] [address]- [address]22 Jul, [facility] [address] [id number] [place] [address]- 8618 Jul, [facility] [address] [id number] [place] [address]- 8731 Jul, [facility] [address] [id number] [place] [address]- 6685 Jul, [facility] [address] [id number] [place] [address]- 0837 Jul, [facility] [address] [id number] [place] [address]- 0119 Jul, [facility] [address] [id number] [place] [address]- 8569 Jun, [facility] [address] [id number] [place] [address]- 5252 Jun, [facility] [address] [id number] [place] [address]- 8903 Jun, [facility] [address] [id number] [place] [address]- 4308 14 Jun, 2012 [facility] [address] [id number] [place] [address]- 6806 04 Jun, 2012 [facility] [place] [facility] [address] [id number] [place] [address]- 9596 13 May, 2012 [facility] [place] [facility] [address] [id number] [place] [address]- 2706 12 May, 2012 [facility] [place] [facility] [address] [id number] [place] [address]- 2179 May, [facility] [place] [facility] [address] [id number] [place] [address]- 0500 08 May, 2012 [facility] [address] [id number] [place] [address]- 5376 Apr, [facility] [address] [id number] [place] [address]- 0532 Apr, [facility] [place] [facility] [address] [id number] [place] [address]- 5580 Apr, [facility] [address] [id number] [place] [address]- 5805 Mar, [facility] [address] [id number] [place] [address]- 5583 Mar, [facility] [place] [facility] [address] [id number] [place] [address]- 4735 Mar, [facility] [place] [facility] [address] [id number] [place] [address]- 3957 Mar, [facility] [place] [facility] [address] [id number] [place] [address]- 1586 Mar, [facility] [place] [facility] [address] [id number] [place] [address]- 7276 17 Mar, 2012 [facility] [place] [facility] [address] [id number] [place] [address]- 0728 Mar, [facility] [place] [facility] [address] [id number] [place] [address]- 0272 Mar, [facility] [place] [facility] [address] [id number] [place] [address]- 6043 Feb, [facility] [place] [facility] [address] [id number] [place] [address]- 2599 Feb, [facility] [place] [facility] [address] [id number] [place] [address]- 8267 Feb, [facility] [place] [facility] [address] [id number] [place] [address]- 5611 Feb, [facility] [place] [facility] [address] [id number] [place] [address]- 3239 Feb, [facility] [place] [facility] [address] [id number] [place] [address]- 8562 Feb, [facility] [place] [facility] [address] [id number] [place] [address]- 5044 Feb, [facility] [place] [facility] [address] [id number] [place] [address]- 0624 Feb, [facility] [place] [facility] [address] [id number] [place] [address]- 1803 Feb, [facility] [place] [facility] [address] [id number], [place] [address]- 5968 Feb, [facility] [place] [facility] [address] [id number], [place] [address]- 0279 Feb, [facility] [place] [facility] [address] [id number] [place] [address]- 8544 Feb, [facility] [place] [facility] [address] [id number] [place] [address]- 3503 Feb, [facility] [place] [facility] [address] [id number] [place] [address]- 3228 Feb, [facility] [place] [facility] [address] [id number] [place] [address]- 9194 Feb, [facility] [place] [facility] [address] [id number] [place] [address]- 6628 Feb, [facility] [place] [facility] [address] [id number] [place] [address]- 9688 Feb, [facility] [place] [facility] [address] [id number] [place] [address]- 9417 Feb, [facility] [place] [facility] [address] [id number] [place] [address]- 0000 Jan, [facility] [place] [facility] [address] [id number] [place] [address]- 4947 Jan, [facility] [place] [facility] [address] [id number] [place] [address]- 2230 Jan, [facility] [place] [facility] [address] [id number] [place] [address]- 5390 Jan, [facility] [place] [facility] [address] [id number] [place] [address]- 4636 Jan, [facility] [place] [facility] [address] [facility] [id number] [place] [address]- 1717 19 Jan, 2012 [facility] [place] [facility] [address] [facility] [id number] [place] [address]- 6169 18 Jan, 2012 [facility] [place] [facility] [address] [id number] [place] [address]- 4386 18 Jan, 2012 [facility] [place] [facility] [address] [id number], [place] [address]- 6876 15 Jan, 2012 [facility] [place] [facility] [address] [id number] [place] 4133 15 Jan, 2012 [facility] [place] [facility] [address] [facility] [id number] [place] [address]- 7230 Jan, [facility] [place] [facility] [address] [id number] [place] [address]- 8528 Jan, [facility] [place] [facility] [address] [id number] [place] [address]- 6512 Jan, [facility] [place] [facility] [address] [id number] [place] [address]- 8617 Jan, [facility] [place] [facility] [address] [id number] [place] [address]- 8003 Jan, [facility] [place] [facility] [address] [id number] [place] [address]- 1213 29 Dec, 2011 [facility] [place] [facility] [address] [id number] [place] [address]- 8867 28 Dec, 2011 [facility] [place] [facility] [address] [id number] [place] [address]- 5409 27 Dec, 2011 [facility] [place] [facility] [address] [id number] [place] [address]- 3500 26 Dec, 2011 [facility] [place] [facility] [address] [id number] [place] [address] Nov, [facility] [place] [facility] [address] [id number] [place] [address] Nov, [facility] [place] [facility] [address] [id number] [place] [address] Nov, [facility] [place] [facility] [address] [id number] [place] [address] Nov, [facility] [place] [facility] [address] [id number] [address] Nov, [facility] [place] [facility] [address] [id number] [place] [address] Nov, [facility] [place] [facility] [address] [id number] [place] [address] Nov, [facility] [place] [facility] [address] [id number] [place] [address] Nov, [facility] [place] [facility] [address] [id number], [place] [address] Nov, [facility] [place] [facility] [address] [id number] [place] [address] Nov, [facility] [place] [facility] [address] [id number] [place] [address] Nov, [facility] [place] [facility] [address] [id number] [place] [address] Oct, [facility] [place] [facility] [address] [id number] [place] [address] Oct, [facility] [place] [facility] [address] [id number] [place] [address] Oct, [facility] [place] [facility] [address] [id number] [place] [address] Oct, [facility] [place] [facility] [address] [id number] [place] [address] Oct, [facility] [place] [facility] [address] [id number] [place] [address] Oct, [facility] [place] [facility] [address] [id number] [place] [address] Oct, [facility] [place] [facility] [address] [id number] [place] [address] Oct, [facility] [place] [facility] [address] [id number] [place] [address] Sep, [facility] [place] [facility] [address] [id number] [place] [address] Sep, [facility] [place] [facility] [address] [id number] [place] [address] 85[address] Sep, [facility] [place] [facility] [address] [id number] [place] [address]- 94[address] Sep, [facility] [place] [facility] [address] [id number] [place] [address] Sep, [facility] [place] [facility] [address] [id number] [place] [address] Sep, [facility] [place] [facility] [address] [id number] [place] [address]694 Sep, [facility] [place] [facility] [address] [id number] [place] [address]- [address] August, [facility] [place] [facility] [address] [id number] [place] [address]- [address]237 August, [facility] [place] [facility] [address] [id number] [place] [address] 139[address] August, [facility] [place] [facility] [address] [id number] [place] [address] 35[address] August, [facility] [place] [facility] [address] [id number] [place] [address] August, [facility] [place] [facility] [address] [id number] [place] [address]- [address] August, [facility] [place] [facility] [address] [id number] [place] [address] August, [facility] [place] [facility] [address] [id number] [place] [address]- 1422 August, [facility] [place] [facility] [address] [id number] [place] [address] Jul, [facility] [place] [facility] [address] [id number] [place] [address]- 1373 17 Jul, 2011 [facility] [place] [facility] [address] [id number] [place] [address]- 3655 13 Jul, 2011 [facility] [place] [facility] [address] [id number] [place] [address] Jul, [facility] [place] [facility] [address] [id number] [place] [address]- [address] 05 Jul, 2011 [facility] [place] [facility] [address] [id number] [place] [address] 28 Jun, 2011 [facility] [place] [facility] [address] [id number] [place] [address]- [address] 2011 [facility] [place] [facility] [address] [id number] [place] [address] 20 Jun, 2011 [facility] [place] [facility] [address] [id number] [place] [address]- 8996 19 Jun, 2011 [facility] [place] [facility] [address] [id number] [place] [address]- 2537 12 Jun, 2011 [facility] [place] [facility] [address] [id number] [place] [address]- 56[address] Jun, [facility] [place] [facility] [address] [id number] [place] [address]- 2070 12 Jun, 2011 [facility] [place] [facility] [address] [facility] [id number] [place] [address]- [address] 07 Jun, 2011 [facility] [place] [facility] [address] [id number] [place] [address]- [address] 06 Jun, 2011 [facility] [place] [facility] [address] [facility] [id number] [place] [address]- [address]898 27 May, 2011 [facility] [place] [facility] [address] [facility] [id number] [place] [address]- 2199 24 May, 2011 [facility] [place] [facility] [address] [facility] [id number] [place] [address]- 0406 23 May, 2011 [facility] [place] [facility] [address] [id number] [place] [address]- 5741 23 May, 2011 [facility] [place] [facility] [address] [id number] [place] [address]- 0174 11 May, 2011 [facility] [place] [facility] [address] [facility] [id number] [place] [address]- 2050 10 May, 2011 [facility] [place] [facility] [address] [facility] [id number] [place] [address]- 1206 07 May, 2011 [facility] [place] [facility] [address] [id number] [place] [address]- 2546 May, [facility] [address] [id number] [place] [address]- 99[address] Apr, [facility] [place] [facility] [address] [id number] [place] [address]- 2546 Apr, [facility] [address] [id number] [place] [address]- 7116 Apr, [facility] [place] [facility] [address] [id number] [place] [address]- 2546 Apr, [facility] [address] [id number] [place] [address]- 2096 Apr, [facility] [address] [id number] [place] [address]- 2546 Apr, [facility] [address] [id number] [place] [address]- 9633 Mar, [facility] [address] [id number] [place] [address]- 9627 29 Mar, 2011 [facility] [address] [id number] [place] [address]- 0882 26 Mar, 2011 [facility] [address] [id number] [place] [address]- 2058 19 Mar, 2011 [facility] [place] [facility] [address] [id number] [place] [address]- 0846 15 Mar, 2011 [facility] [place] [facility] [address] [id number] [place] [address]- 2546 13 Mar, 2011 [facility] [facility] [address] [id number] [place] [address] 13 Mar, 2011 [facility] [place] [facility] [address] [id number] [place] [address] 13 Mar, 2011 [facility] [place] [facility] [address] [id number] [place] [address] Mar, [facility] [place] [facility] [address] [id number] [place] [address] Mar, [facility] [place] [facility] [address] [id number] [place] [address] Mar, [facility] [place] [facility] [address] [id number] [place] [address] Mar, [facility] [place] [facility] [address] [id number] [place] [address] Mar, [facility] [place] [facility] [address] [id number] [place] [address] Feb, [facility] [place] [facility] [address] [id number] [place] [address] Feb, [facility] [place] [facility] [address] [id number] [place] [address] Feb, [facility] [place] [facility] [address] [id number], [place] [address] Feb, [facility] [place] [facility] [address] [id number] [place] [address] Feb, [facility] [place] [facility] [address] [facility] [id number], [place] [address] Feb, [facility] [place] [facility] [address] [id number], [place] [address] Feb, [facility] [place] [facility] [address] [id number], [place] [address] Jan, [facility] [place] [facility] [address] [id number], [place] [address] Jan, [facility] [place] [facility] [address] [id number], [place] [address] Jan, [facility] [place] [facility] [address] [facility] [id number], [place] [address] Nov, [facility] [place] [facility] [address] [id number], [place] [address] 22 Mar, 2010 [facility] [id number] [address] Mar, [facility] [id number], [place] [address] 20 Mar, 2010 [facility] [id number], [place] [address] 13 Mar, 2010 [facility] [id number], [place] [address] Mar, [facility] [id number] [place] [address] 30 Feb, 2010 [facility] [id number], [place] [address] 30 Feb, 2010 [facility] [id number], [place] [address] 24 Feb, 2010 [facility] [id number], [place] [address] Feb, [facility] [id number], [place] [address] Feb, [facility] [address] [id number], [place] [address] 15 Feb, 2010 IMMUNIZATIONS No Known Immunizations SOCIAL HISTORY Never Assessed REASON FOR VISIT Xray Results PLAN OF CARE VITAL SIGNS MEDICATIONS Unknown [...]
--- OUTSIDE RECORDS SUMMARY | 2017-08-08 00:12 | XMS REPORT ---
Author Author BROOKE LAMB Organization [facility] Address [address] [place] [address] Care Team Providers Care Field [employer]er Name Role Phone HUNG LAMBE Unavailable PROBLEMS Type Condition ICD9-CM Code SBP74-EZ Code Onset Dates Condition Status SNOMED Code Problem Essential hypertension I10 Active 48960819 Problem GERD (gastroesophageal reflux disease) K21.9 Active 210143234 Problem Breast cancer C50.919 Active 548559514 Problem Eye exam, routine Z01.00 Active 018515634 Problem Obesity E66.9 Active 674647471 Problem Arthritis M19.90 Active 9304823 Problem MAYRA (generalized anxiety disorder) F41.1 Active 62173271 Problem PTSD (post-traumatic stress disorder) F43.10 Active 70716772 Problem Schizoaffective disorder, unspecified F25.9 Active 90433712 Problem Gastroesophageal reflux disease with esophagitis K21.0 Active 460691970 Problem Anxiety disorder, unspecified F41.9 Active 246160825 Problem History of breast cancer Z85.3 Active 733375046 Problem Unspecified mood [affective] disorder F39 Active 197037021 Problem Restless leg syndrome G25.81 Active 57723744 Problem Hypoxia, sleep related G47.34 Active 61252003 Problem Overactive bladder N32.81 Active 416191436 Problem Other chronic pain G89.29 Active 07135966 Problem Claustrophobia F40.240 Active 69472368 Problem Arthralgia of right hip M25.551 Active 79048414 Problem Confusion R41.0 Active 395952971 Problem Stroke-like symptoms R29.90 Active 327099633 Problem Cough R05 Active 62850123 Problem Neuropathy G62.9 Active 257406399 Problem Open wound T14.8 Active 375481867 Problem Seasonal allergic rhinitis due to pollen J30.1 Active 02464295 Problem Fibromyalgia M79.7 Active 07481860 Problem Acute right-sided low back pain without sciatica M54.5 Active 477255258 Problem COPD (chronic obstructive pulmonary disease) J44.9 Active 21130223 Problem Intermittent drowsiness R40.0 Active 103509968 Problem Arthralgia of right ankle M25.571 Active 825038697 Problem Arthralgia of right knee M25.561 Active 73118190 Problem Sleep apnea in adult G47.33 Active 59633454 Problem Stress incontinence N39.3 Active 02669611 Problem Burn of stomach, initial encounter T28.2XXA Active 41918151 Problem Fatigue, unspecified type R53.83 Active 68161878 ALLERGIES Substance Reaction Event Type Date Status Latuda mood swings Drug Allergy August, Active Prozac Worsened mood swings. Drug Allergy August, Active Propranolol HCl Unknown Drug Allergy August, Active Neurontin Memory Loss Drug Allergy August, Active Ambien Unknown Drug Allergy August, Active Advair Diskus dizziness, nausea Drug Allergy August, Active SOCIAL HISTORY Never Assessed PLAN OF CARE Activity Details Follow Up 4 Weeks Reason:f/u breast surgery VITAL SIGNS Height 60 in 2016-09-16 Weight 204.7 lbs 2016-09-16 Temperature 99.1 degrees Fahrenheit 2016-09-16 Heart Rate 100 bpm 2016-09-16 Respiratory Rate 20 2016-09-16 BMI 39.97 kg/m2 2016-09-16 Blood pressure systolic 144 mmHg 2016-09-16 Blood pressure diastolic 86 mmHg 2016-09-16 MEDICATIONS Medication Instructions Dosage Frequency Start Date End Date Duration Status Albuterol Sulfate 90 mcg/actuation 2 puffs by Inhalation route every 4-6 hours as needed PRN cough or wheezing Oct, Active Omeprazole 20 mg Orally 2 times a day TAKE 1 CAPSULE BY MOUTH TWICE DAILY 12h Active VESIcare 5 mg Orally Once a day 1 tablet 24h August, Nov, Active Albuterol Sulfate (2.5 MG/3ML) 0.083% Inhalation every 4-6 hours as needed for cough or wheeze 3 ml Jan, Active Oxygen 2 L/NC subcutaneously at night only as directed Jul, Active Diltiazem HCl 120 MG Orally daily TAKE 1 TABLET BY MOUTH 2 TIMES A DAY 24h Active Lisinopril 5 mg Orally Once a day 1 tablet 24h August, 30 day(s) Active TENS Unit 1 APPLY TO THE BACK 24h May, Active Pramipexole Dihydrochloride 0.25 MG Orally Once a day TAKE 3 TABLETS BY MOUTH AT BEDTIME 24h 30 days Active Lyrica 100 mg Orally Twice a day 1 capsule 12h August, Active Symbicort 160-4.5 MCG/ACT Inhalation Twice a day 2 puffs 12h 20 May, 2016 Active Amitriptyline HCl 100 mg Orally Once at bedtime for sleep 1 tablet Apr Active Cephalexin 500 mg Orally every 6 hrs 1 capsule 6h Active Exemestane 25 MG Orally Once a day 1 tablet with a meal 24h Active Singulair 10 mg Orally Once a day 1 tablet in the evening 24h August, Active Diazepam 5 mg Orally 4 times a day PRN 1 tablet as needed Active Ibuprofen 600 MG Orally every 6 hrs 1 tablet as needed for pain 6h Nov, 30 days Active Meclizine HCl 12.5 MG Orally Once a day 2 tablets as needed 24h August, 30 day(s) Active Hydrocodone-Acetaminophen 5-325 MG Orally every 6 hrs 1 tablet as needed 6h Active Requip 4 MG Orally Once a day as directed 24h Feb, 30 days Active RESULTS No Results PROCEDURES Procedure Date Ordered Result Body Site [facility] VISIT ESTABLISHED PATIENT September 16, 2016 IMMUNIZATIONS No Known Immunizations MEDICAL (GENERAL) [...]
--- OUTSIDE RECORDS SUMMARY | 2017-08-08 00:29 | XMS REPORT | Continuity of Care Document ---
Author Author [facility] Address Unknown Phone Unavailable Allergies Active [...] Allergy 07/21/2012 Yes No Known Drug Allergies [id number] Drug Allergy Unknown N/A 05/17/2013 Yes fluticasone [id number] Drug Allergy Unknown DOESN'T WORK 05/09/2015 Yes gabapentin [id number] Drug Allergy Unknown NOT EFFECTIVE 05/09/2015 Yes PROPANOLOL PROPANOLOL Unknown NOT EFFECTIVE 05/09/2015 Yes salmeterol [id number] Drug Allergy Unknown DOESN'T WORK 05/09/2015 Yes zolpidem [id number] Drug Allergy Unknown "MAKES ME ANGRY 05/09/2015 Yes fluoxetine [id number] Drug Allergy Mild N/A 03/05/2017 Medications There is no data. Problems Date Dx Coded Attending Type Code Diagnosis Diagnosed By 03/18/1103 JARRED CASTRO, ROCÍO Hays 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 03/18/1103 JARRED CASTRO, ROCÍO Hays E66.01 MORBID (SEVERE) OBESITY DUE TO EXCESS [...] 03/18/1103 ROCÍO STERN MD Ot Z79.899 OTHER [facility] (CURRENT) DRUG THERAPY 12/18/2009 Ot 530.81 12/18/2009 Ot 535.40 03/07/2010 532.30 Acute Duodenal Ulcer Without Hemorrhage Or Perforation Without Obstruction 03/07/2010 724.5 Backache Unspecified 03/07/2010 MUOGHALU DDS, LOBO N 532.30 Acute Duodenal Ulcer Without Hemorrhage Or Perforation Without Obstruction 03/07/2010 LUIS FERNANDOU DDS, LOBO N 724.5 Backache Unspecified 03/07/2010 532.30 [...] DDS, DEEDEE J 724.5 Backache Unspecified 03/07/2010 ORACIO RAJAN-MAEVE Dwyer M 532.30 Acute Duodenal Ulcer Without Hemorrhage Or Perforation Without Obstruction 03/07/2010 ORACIO RAJAN-CMAEVE M 724.5 Backache Unspecified 03/07/2010 SALGUERO DO, PHILIPPE K 532.30 Acute Duodenal Ulcer Without Hemorrhage Or Perforation Without Obstruction 03/07/2010 SALGUERO DO, PHILIPPE K 724.5 Backache Unspecified 03/07/2010 WHITE DDS, DEEDEE J 532.30 Acute Duodenal Ulcer Without Hemorrhage Or Perforation Without Obstruction 03/07/2010 WHITE DDS, DEEDEE J 724.5 Backache Unspecified 03/07/2010 ASHELY WHITE LEAD GRINDER, BOY J 532.30 Acute Duodenal Ulcer Without Hemorrhage Or Perforation Without Obstruction 03/07/2010 ASHELY SPANGLERN, BOY J 724.5 Backache Unspecified 03/07/2010 SALGUERO DO, PHILIPPE K 532.30 Acute Duodenal Ulcer Without Hemorrhage Or Perforation Without Obstruction 03/07/2010 SALGUERO DO, PHILIPPE K 724.5 Backache Unspecified 03/07/2010 SALGUERO DO, PHILIPPE K 532.30 Acute Duodenal Ulcer Without Hemorrhage Or Perforation Without Obstruction 03/07/2010 SALGUERO DO, PHILIPPE K 724.5 Backache Unspecified 03/07/2010 ASHELY WHITE LEAD GRINDER, BOY J 532.30 Acute Duodenal Ulcer Without Hemorrhage Or Perforation Without Obstruction 03/07/2010 ASHELY WHITE LEAD GRINDER, BOY J 724.5 Backache Unspecified 03/07/2010 WHITE [...] PHILIPPE K 724.5 Backache Unspecified 03/07/2010 ASHELY WHITE LEAD GRINDER, BOY J 532.30 Acute Duodenal Ulcer Without Hemorrhage Or Perforation Without Obstruction 03/07/2010 ASHELY WHITE LEAD GRINDER, BOY J 724.5 Backache Unspecified 03/07/2010 ASHELY WHITE LEAD GRINDER, BOY J 532.30 Acute Duodenal Ulcer Without Hemorrhage Or Perforation Without Obstruction 03/07/2010 ASHELY WHITE LEAD GRINDER, BOY J 724.5 Backache Unspecified 03/07/2010 ASHELY WHITE LEAD GRINDER, BOY J 532.30 Acute Duodenal Ulcer Without Hemorrhage Or Perforation Without Obstruction 03/07/2010 ASHELY WHITE LEAD GRINDER, BOY J 724.5 Backache Unspecified 03/07/2010 ASHELY WHITE LEAD GRINDER, BOY J 532.30 Acute Duodenal Ulcer Without Hemorrhage Or Perforation Without Obstruction 03/07/2010 ASHELY WHITE LEAD GRINDER, BOY J 724.5 Backache Unspecified 03/07/2010 SALGUERO DO, PHILIPPE K 532.30 Acute Duodenal Ulcer Without Hemorrhage Or Perforation Without Obstruction 03/07/2010 SALGUERO DO, PHILIPPE K 724.5 Backache Unspecified 03/07/2010 SALGUERO DO, PHILIPPE K 532.30 Acute Duodenal Ulcer Without Hemorrhage Or Perforation Without Obstruction 03/07/2010 SALGUERO DO, PHILIPPE K 724.5 Backache Unspecified 03/07/2010 ASHELY WHITE LEAD GRINDER, BOY J 532.30 Acute Duodenal Ulcer Without Hemorrhage Or Perforation Without Obstruction 03/07/2010 ASHELY WHITE LEAD GRINDER, BOY J 724.5 Backache Unspecified 03/07/2010 ASHELY WHITE LEAD GRINDER, BOY J 532.30 Acute Duodenal Ulcer Without Hemorrhage Or Perforation Without Obstruction 03/07/2010 ASHELY WHITE LEAD GRINDER, BOY J 724.5 Backache Unspecified 03/07/2010 ASHELY WHITE LEAD GRINDER, BOY J 532.30 Acute Duodenal Ulcer Without Hemorrhage Or Perforation Without Obstruction 03/07/2010 ASHELY WHITE LEAD GRINDER, BOY J 724.5 Backache Unspecified 03/07/2010 SALGUERO DO, PHILIPPE K 532.30 Acute Duodenal Ulcer Without Hemorrhage Or Perforation Without Obstruction 03/07/2010 SALGUERO DO, PHILIPPE K 724.5 Backache Unspecified 03/07/2010 ASHELY WHITE LEAD GRINDER, BOY J 532.30 Acute Duodenal Ulcer Without Hemorrhage Or Perforation Without Obstruction 03/07/2010 ASHELY WHITE LEAD GRINDER, BOY J 724.5 Backache Unspecified [facility]/07/2010 [facility] Acute Duodenal Ulcer Without Hemorrhage Or Perforation Without Obstruction 03/07/2010 [facility], JACKIE R 724.5 Backache Unspecified 03/07/2010 SALGUERO DO, PHILIPPE K 532.30 Acute Duodenal Ulcer Without Hemorrhage Or Perforation Without Obstruction 03/07/2010 SALGUERO DO, PHILIPPE K 724.5 Backache Unspecified 03/07/2010 SALGUERO DO, PHILIPPE K 532.30 Acute Duodenal Ulcer Without Hemorrhage Or Perforation Without Obstruction 03/07/2010 SALGUERO DO, PHILIPPE K 724.5 Backache Unspecified 03/07/2010 MOY WHITE LEAD GRINDER, CHRIS A 532.30 Acute Duodenal Ulcer Without Hemorrhage Or Perforation Without Obstruction 03/07/2010 MOY WHITE LEAD GRINDER, CHRIS A 724.5 Backache Unspecified 03/07/2010 SALGUERO DO, PHILIPPE K 532.30 Acute Duodenal Ulcer Without Hemorrhage Or Perforation Without Obstruction 03/07/2010 SALGUERO DO, PHILIPPE K 724.5 Backache Unspecified 03/07/2010 ASHELY WHITE LEAD GRINDER, BOY J 532.30 Acute Duodenal Ulcer Without Hemorrhage Or Perforation Without Obstruction 03/07/2010 ASHELY WHITE LEAD GRINDER, BOY J 724.5 Backache Unspecified 03/07/2010 SALGUERO [...] OSTEOARTHROSIS GENERALIZED INVOLVING UNSPECIFIED SITE 03/25/2010 SALGUERO DO PHILIPPE K 314.00 ATTENTION DEFICIT DISORDER WITHOUT [...] OSTEOARTHROSIS GENERALIZED INVOLVING UNSPECIFIED SITE 03/25/2010 SALGUERO DO PHILIPPE K 314.00 ATTENTION DEFICIT DISORDER WITHOUT HYPERACTIVITY 03/25/2010 SALGUERO DO PHILIPPE K 333.94 RESTLESS LEGS SYNDROME (RLS) 03/25/2010 SALGUERO DO PHILIPPE K 715.00 OSTEOARTHROSIS GENERALIZED INVOLVING UNSPECIFIED [...] ATTENTION DEFICIT DISORDER WITHOUT HYPERACTIVITY 03/25/2010 HAN DDS, DEEDEE J 333.94 RESTLESS LEGS SYNDROME (RLS) 03/25/2010 WHITE IVONS, DEEDEE J 715.00 OSTEOARTHROSIS GENERALIZED INVOLVING UNSPECIFIED [...] ATTENTION DEFICIT DISORDER WITHOUT HYPERACTIVITY 03/25/2010 HAN DDSSARABJITON J 333.94 RESTLESS LEGS SYNDROME (RLS) 03/25/2010 WHITE DDS, DEEDEE J 715.00 OSTEOARTHROSIS GENERALIZED INVOLVING UNSPECIFIED SITE 03/25/2010 ASHELY SPANGLERNJUAREZA J 314.00 ATTENTION DEFICIT DISORDER WITHOUT HYPERACTIVITY 03/25/2010 ASHELY SPANGLERNJUAREZA J 333.94 RESTLESS LEGS SYNDROME (RLS) 03/25/2010 ASHELY SPANGLERN, BOY J 715.00 OSTEOARTHROSIS GENERALIZED INVOLVING UNSPECIFIED [...] OSTEOARTHROSIS GENERALIZED INVOLVING UNSPECIFIED SITE 03/25/2010 ASHELY WHITE LEAD GRINDER, BOY J 314.00 ATTENTION DEFICIT DISORDER WITHOUT HYPERACTIVITY 03/25/2010 ASHELY WHITE LEAD GRINDER, BOY J 333.94 RESTLESS LEGS SYNDROME (RLS) 03/25/2010 ASHELY WHITE LEAD GRINDER, BOY J 715.00 OSTEOARTHROSIS GENERALIZED INVOLVING UNSPECIFIED [...] OSTEOARTHROSIS GENERALIZED INVOLVING UNSPECIFIED SITE 03/25/2010 ASHELY WHITE LEAD GRINDER, BOY J 314.00 ATTENTION DEFICIT DISORDER WITHOUT HYPERACTIVITY 03/25/2010 ASHELY WHITE LEAD GRINDER, BOY J 333.94 RESTLESS LEGS SYNDROME (RLS) 03/25/2010 ASHELY WHITE LEAD GRINDER, BOY J 715.00 OSTEOARTHROSIS GENERALIZED INVOLVING UNSPECIFIED SITE 03/25/2010 ASHELY WHITE LEAD GRINDER, BOY J 314.00 ATTENTION DEFICIT DISORDER WITHOUT HYPERACTIVITY 03/25/2010 ASHELY WHITE LEAD GRINDER, BOY J 333.94 RESTLESS LEGS SYNDROME (RLS) 03/25/2010 ASHELY WHITE LEAD GRINDER, BOY J 715.00 OSTEOARTHROSIS GENERALIZED INVOLVING UNSPECIFIED SITE 03/25/2010 ASHELY WHITE LEAD GRINDER, BOY J 314.00 ATTENTION DEFICIT DISORDER WITHOUT HYPERACTIVITY 03/25/2010 ASHELY VASQUES, BOY J 333.94 RESTLESS LEGS SYNDROME (RLS) 03/25/2010 JUAREZ LUND APRNA J 715.00 OSTEOARTHROSIS GENERALIZED INVOLVING UNSPECIFIED SITE 03/25/2010 JUAREZ LUND APRNA J 314.00 ATTENTION DEFICIT DISORDER WITHOUT HYPERACTIVITY 03/25/2010 ASHELY VASQUES, BOY J 333.94 RESTLESS LEGS SYNDROME (RLS) [...] 715.00 OSTEOARTHROSIS GENERALIZED INVOLVING UNSPECIFIED SITE 03/25/2010 [facility], JACKIE R 314.00 ATTENTION DEFICIT DISORDER WITHOUT HYPERACTIVITY 03/25/2010 IVET [facility], JACKIE R 333.94 RESTLESS LEGS SYNDROME (RLS) 03/25/2010 IVET CS, JACKIE R 715.00 OSTEOARTHROSIS GENERALIZED INVOLVING UNSPECIFIED [...] 715.00 OSTEOARTHROSIS GENERALIZED INVOLVING UNSPECIFIED SITE 03/25/2010 MOY VASQUES, CHRIS A 314.00 ATTENTION DEFICIT DISORDER WITHOUT HYPERACTIVITY 03/25/2010 MOY SPANGLERN, CHRIS A 333.94 RESTLESS LEGS SYNDROME (RLS) 03/25/2010 MOY VASQUES, CHRIS A 715.00 OSTEOARTHROSIS GENERALIZED INVOLVING UNSPECIFIED [...] J 368.9 Unspecified Visual Disturbance 05/26/2010 ASHELY WHITE LEAD GRINDER, BOY J 333.85 TARDIVE DYSKINESIA DRUG-INDUCED 05/26/2010 ASHELY WHITE LEAD GRINDER, BOY J 368.9 Unspecified Visual Disturbance 05/26/2010 SALGUERO DO, PHILIPPE K 333.85 TARDIVE DYSKINESIA DRUG-INDUCED 05/26/2010 SALGUERO DO, PHILIPPE K 368.9 Unspecified Visual Disturbance 05/26/2010 SALGUERO DO, PHILIPPE K 333.85 TARDIVE DYSKINESIA DRUG-INDUCED 05/26/2010 SALGUERO DO, PHILIPPE K 368.9 Unspecified Visual Disturbance 05/26/2010 ASHELY WHITE LEAD GRINDER, BOY J 333.85 TARDIVE DYSKINESIA DRUG-INDUCED 05/26/2010 ASHELY WHITE LEAD GRINDER, BOY J 368.9 Unspecified Visual Disturbance 05/26/2010 WHITE DDS, DEEDEE J 333.85 TARDIVE DYSKINESIA DRUG-INDUCED 05/26/2010 WHITE DDS, DEEDEE J 368.9 Unspecified Visual Disturbance 05/26/2010 WHITE DDS, DEEDEE J 333.85 TARDIVE DYSKINESIA DRUG-INDUCED 05/26/2010 WHITE DDS, DEEDEE J 368.9 Unspecified Visual Disturbance 05/26/2010 SALGUERO DO, PHILIPPE K 333.85 TARDIVE DYSKINESIA DRUG-INDUCED 05/26/2010 SALGUERO DO, PHILIPPE K 368.9 Unspecified Visual Disturbance 05/26/2010 ASHELY WHITE LEAD GRINDER, BOY J 333.85 TARDIVE DYSKINESIA DRUG-INDUCED 05/26/2010 ASHELY WHITE LEAD GRINDER, BOY J 368.9 Unspecified Visual Disturbance 05/26/2010 ASHELY WHITE LEAD GRINDER, BOY J 333.85 TARDIVE DYSKINESIA DRUG-INDUCED 05/26/2010 ASHELY WHITE LEAD GRINDER, BOY J 368.9 Unspecified Visual Disturbance 05/26/2010 ASHELY WHITE LEAD GRINDER, BOY J 333.85 TARDIVE DYSKINESIA DRUG-INDUCED 05/26/2010 ASHELY WHITE LEAD GRINDER, BOY J 368.9 Unspecified Visual Disturbance 05/26/2010 ASHELY WHITE LEAD GRINDER, BOY J 333.85 TARDIVE DYSKINESIA DRUG-INDUCED 05/26/2010 ASHELY WHITE LEAD GRINDER, BOY J 368.9 Unspecified Visual Disturbance 05/26/2010 SALGUERO DO, PHILIPPE K 333.85 TARDIVE DYSKINESIA DRUG-INDUCED 05/26/2010 SALGUERO DO, PHILIPPE K 368.9 Unspecified Visual Disturbance 05/26/2010 SALGUERO DO, PHILIPPE K 333.85 TARDIVE DYSKINESIA DRUG-INDUCED 05/26/2010 SALGUERO DO, PHILIPPE K 368.9 Unspecified Visual Disturbance 05/26/2010 ASHELY WHITE LEAD GRINDER BOY J 333.85 TARDIVE DYSKINESIA DRUG-INDUCED 05/26/2010 ASHELY WHITE LEAD GRINDER, BOY J 368.9 Unspecified Visual Disturbance 05/26/2010 ASHELY VASQUES, BOY J 333.85 TARDIVE DYSKINESIA DRUG-INDUCED 05/26/2010 BECKY LUND APRNINDA J 368.9 Unspecified Visual Disturbance 05/26/2010 BECKY LUND APRNINDA J 333.85 TARDIVE DYSKINESIA DRUG-INDUCED 05/26/2010 ASHELY WHITE LEAD GRINDER, BOY J 368.9 Unspecified Visual Disturbance 05/26/2010 SALGUERO DO, PHILIPPE K 333.85 TARDIVE DYSKINESIA DRUG-INDUCED 05/26/2010 SALGUERO DO, PHILIPPE K 368.9 Unspecified Visual Disturbance 05/26/2010 ASHELY VASQUES, BOY J 333.85 TARDIVE DYSKINESIA DRUG-INDUCED 05/26/2010 ASHELY WHITE LEAD GRINDER, BOY J 368.9 Unspecified Visual Disturbance 05/26/2010 [facility], JACKIE R 333.85 TARDIVE DYSKINESIA DRUG-INDUCED 05/26/2010 [facility], JACKIE R 368.9 Unspecified Visual Disturbance 05/26/2010 SALGUERO DO, PHILIPPE K 333.85 TARDIVE DYSKINESIA DRUG-INDUCED 05/26/2010 SALGUERO DO, PHILIPPE K 368.9 Unspecified Visual Disturbance 05/26/2010 SALGUERO DO, PHILIPPE K 333.85 TARDIVE DYSKINESIA DRUG-INDUCED 05/26/2010 SALGUERO DO, PHILIPPE K 368.9 Unspecified Visual Disturbance 05/26/2010 MOY SPANGLERN CHRIS A 333.85 TARDIVE DYSKINESIA DRUG-INDUCED 05/26/2010 MOY WHITE LEAD GRINDER CHRIS A 368.9 Unspecified Visual Disturbance 05/26/2010 SALGUERO DO PHILIPPE K 333.85 TARDIVE DYSKINESIA DRUG-INDUCED 05/26/2010 SALGUERO DO PHILIPPE K 368.9 Unspecified Visual Disturbance 05/26/2010 ASHELY WHITE LEAD GRINDER, BOY J 333.85 TARDIVE DYSKINESIA DRUG-INDUCED 05/26/2010 ASHELY WHITE LEAD GRINDER, BOY J 368.9 Unspecified Visual Disturbance 05/26/2010 SALGUERO DO PHILIPPE K 333.85 TARDIVE DYSKINESIA DRUG-INDUCED 05/26/2010 SALGUERO DO PHILIPPE K 368.9 Unspecified Visual Disturbance 07/22/2010 625.4 Premenstrual Tension Syndromes 07/22/2010 LOBO CHERY DDS 625.4 Premenstrual Tension Syndromes 07/22/2010 625.4 Premenstrual Tension Syndromes 07/22/2010 SALGUERO DO PHILIPPE K 625.4 Premenstrual Tension Syndromes 07/22/2010 NOEMY DO PHILIPPE K 625.4 Premenstrual Tension Syndromes [...] DEEDEE J 625.4 Premenstrual Tension Syndromes 07/22/2010 MAEVE NARAYANAN PA-C 625.4 Premenstrual Tension Syndromes 07/22/2010 SALGUERO DO PHILIPPE K 625.4 Premenstrual Tension Syndromes 07/22/2010 WHITE DDS, DEEDEE J 625.4 Premenstrual Tension Syndromes 07/22/2010 ASHELY WHITE LEAD GRINDER, BOY J 625.4 Premenstrual Tension Syndromes 07/22/2010 SALGUERO DO PHILIPPE K 625.4 Premenstrual Tension Syndromes 07/22/2010 SALGUERO DO, PHILIPPE K 625.4 Premenstrual Tension Syndromes 07/22/2010 ASHELY WHITE LEAD GRINDER, BOY J 625.4 Premenstrual Tension Syndromes 07/22/2010 WHITE DDS, DEEDEE J 625.4 Premenstrual Tension Syndromes 07/22/2010 WHITE DDS, DEEDEE J 625.4 Premenstrual Tension Syndromes 07/22/2010 SALGUERO DO, PHILIPPE K 625.4 Premenstrual Tension Syndromes 07/22/2010 ASHELY SPANGLERN, BOY J 625.4 Premenstrual Tension Syndromes 07/22/2010 ASHELY SPANGLERN BOY J 625.4 Premenstrual Tension Syndromes 07/22/2010 ASHELY SPANGLERN BOY J 625.4 Premenstrual Tension Syndromes 07/22/2010 ASHELY SPANGLERN, BOY J 625.4 Premenstrual Tension Syndromes 07/22/2010 SALGUERO DO PHILIPPE K 625.4 Premenstrual Tension Syndromes 07/22/2010 SALGUERO DO, PHILIPPE K 625.4 Premenstrual Tension Syndromes 07/22/2010 ASHELY WHITE LEAD GRINDER, BOY J 625.4 Premenstrual Tension Syndromes 07/22/2010 ASHELY WHITE LEAD GRINDER, BOY J 625.4 Premenstrual Tension Syndromes 07/22/2010 ASHELY WHITE LEAD GRINDER, BOY J 625.4 Premenstrual Tension Syndromes 07/22/2010 SALGUERO DO PHILIPPE K 625.4 Premenstrual Tension Syndromes 07/22/2010 ASHELY VASQUES BOY [place] 625.4 Premenstrual Tension Syndromes 07/22/2010 IVET [facility], JACKIE Eastman 625.4 Premenstrual Tension Syndromes 07/22/2010 PHILIPPE SALGUERO DO K 625.4 Premenstrual Tension Syndromes 07/22/2010 SALGUERO DO PHILIPPE K 625.4 Premenstrual Tension Syndromes 07/22/2010 CHRIS WINTER APRN 625.4 Premenstrual Tension Syndromes 07/22/2010 PHILIPPE SALGUERO DO K 625.4 Premenstrual Tension Syndromes 07/22/2010 BOY LUND APRN 625.4 Premenstrual Tension Syndromes 07/22/2010 SALGUERO TANISHA OLVERAA K 625.4 Premenstrual Tension Syndromes 09/10/2010 706.1 Other Acne 09/10/2010 LOBO CHERY DDS 706.1 Other Acne 09/10/2010 706.1 Other Acne 09/10/2010 TANISHA SALGUERO DOA K 706.1 Other Acne 09/10/2010 TANISHA SALGUERO DOA K 706.1 Other Acne 09/10/2010 SALGUERO TANISHA OLVERAA K 706.1 Other Acne 09/10/2010 706.1 Other [...] DDS, DEEDEE J 706.1 Other Acne 09/10/2010 MAEVE NARAYANAN PA-C 706.1 Other Acne 09/10/2010 SALGUERO DO, PHILIPPE K 706.1 Other Acne 09/10/2010 WHITE DDS, DEEDEE J 706.1 Other Acne 09/10/2010 ASHELY WHITE LEAD GRINDER, BOY J 706.1 Other Acne 09/10/2010 SALGUERO DO, PHILIPPE K 706.1 Other Acne 09/10/2010 SALGUERO DO, PHILIPPE K 706.1 Other Acne 09/10/2010 ASHELY WHITE LEAD GRINDER, BOY J 706.1 Other Acne 09/10/2010 WHITE DDS, DEEDEE J 706.1 Other Acne 09/10/2010 WHITE DDS, DEEDEE J 706.1 Other Acne 09/10/2010 SALGUERO DO, PHILIPPE K 706.1 Other Acne 09/10/2010 ASHELY WHITE LEAD GRINDER, BOY J 706.1 Other Acne 09/10/2010 ASHELY WHITE LEAD GRINDER, BOY J 706.1 Other Acne 09/10/2010 ASHELY WHITE LEAD GRINDER, BOY J 706.1 Other Acne 09/10/2010 ASHELY WHITE LEAD GRINDER, BOY J 706.1 Other Acne 09/10/2010 SALGUERO DO, PHILIPPE K 706.1 Other Acne 09/10/2010 SALGUERO DO, PHILIPPE K 706.1 Other Acne 09/10/2010 ASHELY WHITE LEAD GRINDER, BOY J 706.1 Other Acne 09/10/2010 ASHELY WHITE LEAD GRINDER, BOY J 706.1 Other Acne 09/10/2010 ASHELY WHITE LEAD GRINDER, BOY J 706.1 Other Acne 09/10/2010 SALGUERO DO, PHILIPPE K 706.1 Other Acne 09/10/2010 ASHELY WHITE LEAD GRINDER, BOY J 706.1 Other Acne 09/10/2010 IVET DIANE, JACKIE Eastman 706.1 Other Acne 09/10/2010 SALGUERO DO, PHILIPPE K 706.1 Other Acne 09/10/2010 SALGUERO DO, PHILIPPE K 706.1 Other Acne 09/10/2010 CHRIS WINTER APRN 706.1 Other Acne 09/10/2010 SALGUERO DO, PHILIPPE K 706.1 Other Acne 09/10/2010 BOY LUND APRN 706.1 Other Acne 09/10/2010 SALGUERO DO, PHILIPPE K 706.1 Other Acne 11/20/2010 278.02 Overweight 11/20/2010 LISSAGLORY JACOBSONLOBO Veena 278.02 Overweight 11/20/2010 278.02 Overweight 11/20/2010 SALGUERO DO, PHILIPPE K 278.02 Overweight 11/20/2010 SALGUERO DO, PHILIPPE K 278.02 Overweight 11/20/2010 SALGUERO DO, PHILIPPE K 278.02 Overweight 11/20/2010 278.02 Overweight 11/20/2010 278.02 Overweight 11/20/2010 278.02 Overweight 11/20/2010 278.02 Overweight 11/20/2010 278.02 Overweight 11/20/2010 278.02 Overweight 11/20/2010 SALGUEOR DO, PHILIPPE K 278.02 Overweight 11/20/2010 278.02 [...] DO, PHILIPPE K 278.02 Overweight 11/20/2010 WHITE DEEDEE JACOBSON 278.02 Overweight 11/20/2010 MAEVE NARAYANAN PA-C 278.02 Overweight 11/20/2010 SALGUERO DO, PHILIPPE K 278.02 Overweight 11/20/2010 WHITE IVONSDEEDEE 278.02 Overweight 11/20/2010 BOY LUND APRN 278.02 Overweight 11/20/2010 SALGUERO DO, PHILIPPE K 278.02 Overweight 11/20/2010 SALGUERO DO, PHILIPPE K 278.02 Overweight 11/20/2010 BOY LUND APRN 278.02 Overweight 11/20/2010 WHITE DDSDEEDEE 278.02 Overweight 11/20/2010 WHITE DDS, DEEDEE J 278.02 Overweight 11/20/2010 SALGUERO DO, PHILIPPE K 278.02 Overweight 11/20/2010 ASHELY WHITE LEAD GRINDER, BOY J 278.02 Overweight 11/20/2010 ASHELY WHITE LEAD GRINDER, BOY J 278.02 Overweight 11/20/2010 ASHELY WHITE LEAD GRINDER, BOY J 278.02 Overweight 11/20/2010 ASHELY WHITE LEAD GRINDER, BOY J 278.02 Overweight 11/20/2010 SALGUERO DO, PHILIPPE K 278.02 Overweight 11/20/2010 SALGUERO DO, PHILIPPE K 278.02 Overweight 11/20/2010 ASHELY WHITE LEAD GRINDER, BOY J 278.02 Overweight 11/20/2010 ASHEYL WHITE LEAD GRINDER, BOY J 278.02 Overweight 11/20/2010 ASHELY WHITE LEAD GRINDER, BOY J 278.02 Overweight 11/20/2010 SALGUERO DO, PHILIPPE K 278.02 Overweight 11/20/2010 ASHELY WHITE LEAD GRINDER, BOY J 278.02 Overweight 11/20/2010 [facility], JACKIE Eastman 278.02 Overweight 11/20/2010 SALGUERO DO, PHILIPPE K 278.02 Overweight 11/20/2010 SALGUERO DO, PHILIPPE K 278.02 Overweight 11/20/2010 MOYCHRIS DELGADO APRN 278.02 Overweight 11/20/2010 SALGUERO DO, PHILIPPE K 278.02 Overweight 11/20/2010 ASHELY WHITE LEAD GRINDER, BOY J 278.02 Overweight 11/20/2010 SALGUERO DO, PHILIPPE K 278.02 Overweight 12/01/2010 307.42 PERSISTENT INSOMNIA 12/01/2010 MIRI DDS, LOBO Curiel 307.42 PERSISTENT INSOMNIA 12/01/2010 307.42 PERSISTENT INSOMNIA [...] DO PHILIPPE K 307.42 PERSISTENT INSOMNIA 12/01/2010 307.42 [...] PHILIPPE K 307.42 PERSISTENT INSOMNIA 12/01/2010 ASHELY WHITE LEAD GRINDER, BOY J 307.42 PERSISTENT INSOMNIA 12/01/2010 WHITE DDS, DEEDEE J 307.42 PERSISTENT INSOMNIA 12/01/2010 WHITE DDS, DEEDEE J 307.42 PERSISTENT INSOMNIA 12/01/2010 SALGUERO DO, PHILIPPE K 307.42 PERSISTENT INSOMNIA 12/01/2010 ASHELY WHITE LEAD GRINDER, BOY J 307.42 PERSISTENT INSOMNIA 12/01/2010 ASHELY WHITE LEAD GRINDER, BOY J 307.42 PERSISTENT INSOMNIA 12/01/2010 ASHELY WHITE LEAD GRINDER, BOY J 307.42 PERSISTENT INSOMNIA 12/01/2010 ASHELY WHITE LEAD GRINDER, BOY J 307.42 PERSISTENT INSOMNIA 12/01/2010 SALGUERO DO, PHILIPPE K 307.42 PERSISTENT INSOMNIA 12/01/2010 SALGUERO DO, PHILIPPE K 307.42 PERSISTENT INSOMNIA 12/01/2010 ASHELY WHITE LEAD GRINDER, BOY J 307.42 PERSISTENT INSOMNIA 12/01/2010 ASHELY WHITE LEAD GRINDER, BOY J 307.42 PERSISTENT INSOMNIA 12/01/2010 ASHELY WHITE LEAD GRINDER, BOY J 307.42 PERSISTENT INSOMNIA 12/01/2010 SALGUERO DO, PHILIPPE K 307.42 PERSISTENT INSOMNIA 12/01/2010 BOY LUND APRN 307.42 PERSISTENT INSOMNIA 12/01/2010 [facility], JACKIE R 307.42 PERSISTENT INSOMNIA 12/01/2010 SALGUERO DO, PHILIPPE K 307.42 PERSISTENT INSOMNIA 12/01/2010 SALGUERO DO, PHILIPPE K 307.42 PERSISTENT INSOMNIA 12/01/2010 MOYCHRIS DELGADO APRN 307.42 PERSISTENT INSOMNIA 12/01/2010 SALGUERO DO, [...] DO, PHILIPPE K 278.00 OBESITY 12/23/2010 WHITE DDS, DEEDEE J 278.00 OBESITY 12/23/2010 ASHELY WHITE LEAD GRINDER, BOY J 278.00 OBESITY 12/23/2010 SALGUERO DO, PHILIPPE K 278.00 OBESITY 12/23/2010 SALGUERO DO, PHILIPPE K 278.00 OBESITY 12/23/2010 ASHELY WHITE LEAD GRINDER, BOY J 278.00 OBESITY 12/23/2010 WHITE DDS, DEEDEE J 278.00 OBESITY 12/23/2010 WHITE DDS, DEEDEE J 278.00 OBESITY 12/23/2010 SALGUERO DO, PHILIPPE K 278.00 OBESITY 12/23/2010 ASHELY WH[employer] LE[employer]ER, BOY J 278.00 OBESITY 12/23/2010 ASHELY WHITE LEAD GRINDER, BOY J 278.00 OBESITY 12/23/2010 ASHELY WHITE LEAD GRINDER, BOY J 278.00 OBESITY 12/23/2010 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 WHITE 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 GRINDER, 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 J 278.00 OBESITY 12/23/2010 SALGUERO DO, PHILIPPE K 278.00 OBESITY 12/23/2010 SALGUERO DO, PHILIPPE K 278.00 OBESITY 12/23/2010 ASHELY WH[employer] LE[employer]ER, BOY J 278.00 OBESITY 12/23/2010 ASHELY WHITE LEAD GR[employer]ER, BOY J 278.00 OBESITY 12/23/2010 ASHELY WHITE LEAD GR[employer]ER, BOY J 278.00 OBESITY 12/23/2010 SALGUERO DO, PHILIPPE K 278.00 OBESITY 12/23/2010 ASHELY WHITE LE[employer] GR[employer]ER, BOY J 278.00 OBESITY 12/23/2010 [facility], JACKIE R 278.00 OBESITY 12/23/2010 SALGUERO DO, PHILIPPE K 278.00 OBESITY 12/23/2010 SALGUERO DO, PHILIPPE K 278.00 OBESITY 12/23/2010 CHRIS WINTER APRN 278.00 OBESITY 12/23/2010 SALGUERO DO, PHILIPPE K 278.00 OBESITY 12/23/2010 [employer], BOY J 278.00 OBESITY 12/23/2010 SALGUERO DO, [...] DDS, DEEDEE J 782.61 Pallor 01/22/2011 [employer], BOY J 528.00 Stomatitis And Mucositis Unspecified 01/22/2011 [employer]HELY [employer], BOY J 782.61 Pallor 01/22/2011 SALGUERO DO, PHILIPPE K 528.00 Stomatitis And Mucositis Unspecified 01/22/2011 SALGUERO DO, PHILIPPE K 782.61 Pallor 01/22/2011 SALGUERO DO, PHILIPPE K 528.00 Stomatitis And Mucositis Unspecified 01/22/2011 SALGUERO DO, PHILIPPE K 782.61 Pallor 01/22/2011 ASHELY VASQUES BOY J 528.00 Stomatitis And Mucositis Unspecified 01/22/2011 ASHELY VASQUES, BOY J 782.61 Pallor 01/22/2011 WHITE DDS, [...] ASHELY VASQUES BOY J 782.61 Pallor 01/22/2011 SALGUERO DO, [...] BOY LUND APRN J 782.61 Pallor 01/22/2011 BOY LUND APRN J 528.00 Stomatitis And Mucositis Unspecified 01/22/2011 BECKY LUND APRNINDA J 782.61 Pallor 01/22/2011 SALGUERO DO, PHILIPPE K 528.00 Stomatitis And Mucositis Unspecified 01/22/2011 SALGUERO DO, PHILIPPE K 782.61 Pallor 01/22/2011 JUAREZ LUND APRNA J 528.00 Stomatitis And Mucositis Unspecified 01/22/2011 JUAREZ LUND APRNA J 782.61 Pallor 01/22/2011 [facility], JACKIE R 528.00 Stomatitis And Mucositis Unspecified 01/22/2011 [facility], JACKIE R 782.61 Pallor 01/22/2011 SALGUERO DO, PHILIPPE K 528.00 Stomatitis And Mucositis Unspecified 01/22/2011 SALGUERO DO, PHILIPPE K 782.61 Pallor 01/22/2011 SALGUERO DO, PHILIPPE K 528.00 Stomatitis And Mucositis Unspecified 01/22/2011 SALGUERO DO, PHILIPPE K 782.61 Pallor 01/22/2011 MOYDANNY VASQUES CHRIS A 528.00 Stomatitis And Mucositis Unspecified 01/22/2011 MOY APRN, CHRIS A 782.61 Pallor 01/22/2011 SALGUERO DO, PHILIPPE K 528.00 Stomatitis And Mucositis Unspecified 01/22/2011 SALGUERO DO, PHILIPPE K 782.61 Pallor 01/22/2011 JUAREZ LUND APRNA J 528.00 Stomatitis And Mucositis Unspecified 01/22/2011 BECKY LUND APRNINDA J 782.61 Pallor 01/22/2011 SALGUERO DO, PHILIPPE K 528.00 Stomatitis And Mucositis Unspecified 01/22/2011 SALGUERO DO, PHILIPPE K 782.61 Pallor 03/05/2011 276.51 Dehydration 03/05/2011 726.31 MEDIAL EPICONDYLITIS 03/05/2011 V76.19 OTHER SCREENING BREAST EXAMINATION 03/05/2011 LOBO CHERY DDS N 276.51 Dehydration 03/05/2011 MUOGHALU DDS, LOBO N 726.31 MEDIAL EPICONDYLITIS 03/05/2011 MIRI DDS, LOBO N V76.19 OTHER SCREENING BREAST EXAMINATION 03/05/2011 [...] LUND APRN J 726.31 MEDIAL EPICONDYLITIS 03/05/2011 BECKY LUND [...] V76.19 OTHER SCREENING BREAST EXAMINATION 03/05/2011 ASHELY SPANGLERN, BOY J 276.51 Dehydration 03/05/2011 ASHELY VASQUES BOY [...] BOY J 726.31 MEDIAL EPICONDYLITIS 03/05/2011 ASHELY WHITE LEAD GRINDER, BOY J V76.19 OTHER SCREENING BREAST EXAMINATION [...] APRN V76.19 OTHER SCREENING BREAST EXAMINATION 03/05/2011 SALGUERO DO, PHILIPPE K 276.51 Dehydration 03/05/2011 SALGUERO DO, PHILIPPE K 726.31 MEDIAL EPICONDYLITIS 03/05/2011 SALGUERO DO PHILIPPE K V76.19 OTHER SCREENING BREAST EXAMINATION 03/05/2011 BOY LUND APRN J 276.51 Dehydration 03/05/2011 JUAREZ LUND APRNA J 726.31 MEDIAL EPICONDYLITIS 03/05/2011 BOY LUND APRN V76.19 OTHER SCREENING BREAST EXAMINATION 03/05/2011 [facility], JACKIE R 276.51 Dehydration 03/05/2011 [facility], JACKIE R 726.31 MEDIAL EPICONDYLITIS 03/05/2011 [facility], JACKIE R V76.19 OTHER SCREENING BREAST EXAMINATION [...] A V76.19 OTHER SCREENING BREAST EXAMINATION 03/05/2011 SALGUERO DO PHILIPPE K 276.51 Dehydration 03/05/2011 SALGUERO DO PHILIPPE K 726.31 MEDIAL EPICONDYLITIS 03/05/2011 SALGUERO DO PHILIPPE K V76.19 OTHER SCREENING BREAST EXAMINATION 03/05/2011 ASHELY [employer], BOY J 276.51 Dehydration 03/05/2011 ASHELY WHITE LEAD GRINDER, BOY J 726.31 MEDIAL EPICONDYLITIS 03/05/2011 ASHELY WHITE LEAD GRINDER, BOY J V76.19 OTHER SCREENING BREAST EXAMINATION 03/05/2011 SALGUERO DO PHILIPPE K 276.51 Dehydration 03/05/2011 SALGUERO DO [...] LOBO N V76.10 BREAST CANCER SCREENING 03/31/2011 MUOGHALU DDS, LOBO N V76.2 CERVICAL CANCER SCREENING (PAP SMEAR) 03/31/2011 112.1 Candidiasis Vaginal 03/31/2011 611.72 Breast Lump Or Mass 03/31/2011 616.10 Vaginitis 03/31/2011 782.3 Edema 03/31/2011 V76.10 BREAST CANCER SCREENING 03/31/2011 V76.2 CERVICAL CANCER SCREENING (PAP SMEAR) 03/31/2011 SALGUERO DO PHILIPPE K 112.1 Candidiasis Vaginal 03/31/2011 SALGUERO TANISHA OLVERAA K 611.72 Breast Lump Or Mass 03/31/2011 TANISHA SALGUERO DOA K 616.10 Vaginitis 03/31/2011 TANISHA SALGUERO DOA K 782.3 Edema 03/31/2011 NOEMY OLVERA PHILIPPE K V76.10 BREAST CANCER SCREENING 03/31/2011 NOEMY OLVERA PHILIPPE K V76.2 CERVICAL CANCER SCREENING (PAP SMEAR) 03/31/2011 NOEMY OLVERA PHILIPPE K 112.1 Candidiasis Vaginal 03/31/2011 NOEMY OLVERA PHILIPPE K 611.72 Breast Lump Or Mass 03/31/2011 NOMEY OLVERA PHILIPPE K 616.10 Vaginitis 03/31/2011 TANISHA SALGUERO DOA K 782.3 Edema 03/31/2011 NOEMY OLVERA PHILIPPE K V76.10 BREAST CANCER SCREENING 03/31/2011 NOEMY OLVERA PHILIPPE K V76.2 CERVICAL CANCER SCREENING (PAP SMEAR) 03/31/2011 NOEMY OLVERA PHILIPPE K 112.1 Candidiasis Vaginal 03/31/2011 NOEMY OLVERA PHILIPPE K 611.72 Breast Lump Or Mass 03/31/2011 NOEMY DO PHILIPPE K 616.10 Vaginitis 03/31/2011 NOEMY OLVERA [...] Breast Lump Or Mass 03/31/2011 SALGUERO DO, PHILPIPE K 616.10 Vaginitis 03/31/2011 SALGUERO DO, PHILIPPE [...] DO, PHILIPPE K 782.3 Edema 03/31/2011 SALGUERO DO [...] K 611.72 Breast Lump Or Mass 03/31/2011 SLAGUERO DO PHILIPPE K 616.10 Vaginitis 03/31/2011 SALGUERO DO PHILIPPE K 782.3 Edema 03/31/2011 SALGUERO DO PHILIPPE K V76.10 BREAST CANCER SCREENING 03/31/2011 SALGUERO DO PHILIPPE K V76.2 CERVICAL CANCER SCREENING (PAP SMEAR) 03/31/2011 WHITE DDSDEEDEE 112.1 Candidiasis Vaginal 03/31/2011 WHITE DDS, DEEDEE J 611.72 Breast Lump Or Mass 03/31/2011 WHITE DDS, DEEDEE J 616.10 Vaginitis 03/31/2011 HAN DDS, DEEDEE J 782.3 Edema 03/31/2011 HAN DDSDEEDEE J V76.10 BREAST CANCER SCREENING 03/31/2011 WHITE DDSDEEDEE J V76.2 CERVICAL CANCER SCREENING (PAP [...] VALLESDEEDEE J 112.1 Candidiasis Vaginal 03/31/2011 HAN DDSDEEDEE J 611.72 Breast Lump Or Mass 03/31/2011 WHITE DDSDEEDEE J 616.10 Vaginitis 03/31/2011 WHITE DDS, DEEDEE J 782.3 Edema 03/31/2011 HAN DDSDEEDEE J V76.10 BREAST CANCER SCREENING 03/31/2011 HAN DDSDEEDEE J V76.2 CERVICAL CANCER SCREENING (PAP SMEAR) 03/31/2011 BOY LUND APRN J 112.1 Candidiasis Vaginal 03/31/2011 JUAREZ LUND APRNA J 611.72 Breast Lump Or Mass 03/31/2011 BOY LUND APRN J 616.10 Vaginitis 03/31/2011 JUAREZ LUND APRNA J 782.3 Edema 03/31/2011 BOY LUND APRN V76.10 BREAST CANCER SCREENING 03/31/2011 BOY LUND APRN V76.2 CERVICAL CANCER SCREENING (PAP SMEAR) 03/31/2011 SALGUERO DO PHILIPPE K 112.1 Candidiasis Vaginal 03/31/2011 NOEMY OLVERA PHILIPPE K 611.72 Breast Lump Or Mass 03/31/2011 NOEMY OLVERA PHILIPPE K 616.10 Vaginitis 03/31/2011 SALGUERO DO PHILIPPE K 782.3 Edema 03/31/2011 SALGUERO DO PHILIPPE K V76.10 BREAST CANCER SCREENING 03/31/2011 NOEMY OLVERA PHILIPPE K V76.2 CERVICAL CANCER SCREENING (PAP SMEAR) 03/31/2011 NOEMY OLVERA PHILIPPE K 112.1 Candidiasis Vaginal 03/31/2011 SALGUERO DO PHILIPPE K 611.72 Breast Lump Or Mass 03/31/2011 NOEMY OLVERA PHILIPPE K 616.10 Vaginitis 03/31/2011 NOEMY OLVERA PHILIPPE K 782.3 Edema 03/31/2011 NOEMY OLVERA PHILIPPE K V76.10 BREAST CANCER SCREENING 03/31/2011 NOEMY OLVERA PHILIPPE K V76.2 CERVICAL CANCER SCREENING (PAP SMEAR) 03/31/2011 BOY LUND APRN 112.1 Candidiasis Vaginal 03/31/2011 BYO LUND APRN 611.72 Breast Lump Or Mass 03/31/2011 BOY LUND APRN 616.10 Vaginitis 03/31/2011 BOY LUND APRN 782.3 Edema 03/31/2011 BOY LUND APRN V76.10 BREAST CANCER SCREENING 03/31/2011 JUAREZ LUND APRNA J V76.2 CERVICAL CANCER SCREENING (PAP SMEAR) [...] TANISHA SALGUERO DOA K 782.3 Edema 03/31/2011 PHILIPPE SALGUERO DO K V76.10 BREAST CANCER SCREENING 03/31/2011 TANISHA SALGUERO DOA K V76.2 CERVICAL CANCER SCREENING (PAP SMEAR) 03/31/2011 JUAREZ LUND APRNA J 112.1 Candidiasis Vaginal 03/31/2011 JUAREZ LUND APRNA J 611.72 Breast Lump Or Mass 03/31/2011 ASHELY VASQUES, BOY J 616.10 Vaginitis 03/31/2011 JUAREZ LUND APRNA J 782.3 Edema 03/31/2011 JUAREZ LUND APRNA J V76.10 BREAST CANCER SCREENING 03/31/2011 ASHELY VASQUES BOY J V76.2 CERVICAL CANCER SCREENING (PAP SMEAR) 03/31/2011 ASHELY VASQUES, BOY J 112.1 Candidiasis Vaginal 03/31/2011 ASHELY WHITE LE[employer] GRINDER, BOY J 611.72 Breast Lump Or Mass 03/31/2011 ASHELY SPANGLERN, BOY J 616.10 Vaginitis 03/31/2011 ASHELY VASQUES, BOY J 782.3 Edema 03/31/2011 ASHELY VASQUES, BOY J V76.10 BREAST CANCER SCREENING 03/31/2011 BECKY LUND APRNINDA J V76.2 CERVICAL CANCER SCREENING (PAP SMEAR) [...] NOEMY OLVERA PHILIPPE K 616.10 Vaginitis 03/31/2011 NEOMY OLVERA PHILIPPE K 782.3 Edema 03/31/2011 NOEMY [...] SALGUERO DOA K 112.1 Candidiasis Vaginal 03/31/2011 PHILIPPE SALGUERO [...] V76.2 CERVICAL CANCER SCREENING (PAP SMEAR) 03/31/2011 [facility], JACKIE R 112.1 Candidiasis Vaginal 03/31/2011 [facility], JACKIE R 611.72 Breast Lump Or Mass 03/31/2011 [facility], JACKIE R 616.10 Vaginitis 03/31/2011 [facility], JACKIE R 782.3 Edema 03/31/2011 [facility], JACKIE R V76.10 BREAST CANCER SCREENING 03/31/2011 [facility], JACKIE R V76.2 CERVICAL CANCER SCREENING (PAP SMEAR) 03/31/2011 PHILIPPE SALGUERO DO K 112.1 Candidiasis Vaginal 03/31/2011 TANISHA SALGUERO DOA K 611.72 Breast Lump Or Mass 03/31/2011 PHILIPPE SALGUERO DO K 616.10 Vaginitis 03/31/2011 PHILIPPE SALGUERO DO K 782.3 Edema 03/31/2011 PHILIPPE SALGUERO DO K V76.10 BREAST CANCER SCREENING 03/31/2011 PHILIPPE SALGUERO DO K V76.2 CERVICAL CANCER SCREENING (PAP SMEAR) 03/31/2011 PHILIPPE SALGUERO DO K 112.1 Candidiasis Vaginal 03/31/2011 TANISHA SALGUERO DOA K 611.72 Breast Lump Or Mass 03/31/2011 TANISHA SALGUERO DOA K 616.10 Vaginitis 03/31/2011 PHILIPPE SALGUERO DO K 782.3 Edema 03/31/2011 PHILIPPE SALGUERO DO K V76.10 BREAST CANCER SCREENING 03/31/2011 TANISHA SALGUERO DOA K V76.2 CERVICAL CANCER SCREENING (PAP SMEAR) 03/31/2011 MOYCHRIS Curiel APRN A 112.1 Candidiasis Vaginal 03/31/2011 MOYVeena VASQUES CHRIS A 611.72 Breast Lump Or Mass 03/31/2011 MOYVeena VASQUES CHRIS A 616.10 Vaginitis 03/31/2011 MOY APRN, CHRIS A 782.3 Edema 03/31/2011 MOY VASQUES CHRIS A V76.10 BREAST CANCER SCREENING 03/31/2011 CHRIS [...] SALGUERO DO K 112.1 Candidiasis Vaginal 03/31/2011 PHILPIPE SALGUERO DO K 611.72 Breast Lump Or Mass 03/31/2011 TANISHA SALGUERO DOA K 616.10 Vaginitis 03/31/2011 PHILIPPE SALGUERO DO K 782.3 Edema 03/31/2011 TANISHA SALGUERO DOA K V76.10 BREAST CANCER SCREENING 03/31/2011 PHILIPPE SALGUERO DO V76.2 CERVICAL CANCER SCREENING (PAP SMEAR) 04/23/2011 724.4 LUMBAR RADICULOPATHY 04/23/2011 799.22 Affect Irritable 04/23/2011 V58.69 taking high- risk medication 04/23/2011 V70.0 Preventive Medicine Estab Patient Checkup Adult 40-64 04/23/2011 LOBO CHERY DDS 724.4 LUMBAR RADICULOPATHY 04/23/2011 LOBO CHERY DDS 799.22 Affect Irritable 04/23/2011 LOBO CHERY DDS V58.69 taking high-risk medication 04/23/2011 MIRI JACOBSON, LOBO Curiel V70.0 Preventive Medicine Estab Patient Checkup Adult 40-64 04/23/2011 724.4 LUMBAR RADICULOPATHY 04/23/2011 799.22 Affect Irritable 04/23/2011 V58.69 taking high- risk medication 04/23/2011 V70.0 Preventive Medicine Estab Patient Checkup Adult 40-64 04/23/2011 SALGUERO DOTANISHAA K 724.4 LUMBAR RADICULOPATHY 04/23/2011 SALGUERO TANISHA OLVERAA K 799.22 Affect Irritable 04/23/2011 SALGUERO DO PHILIPPE K V58.69 taking high-risk medication 04/23/2011 SALGUERO DO PHILIPPE K V70.0 Preventive Medicine Estab Patient Checkup Adult 40-64 04/23/2011 SALGUERO DO PHILIPPE K 724.4 LUMBAR RADICULOPATHY 04/23/2011 SALGUERO DO PHILIPPE K 799.22 Affect Irritable 04/23/2011 NOEMY OLVERA [...] 04/23/2011 799.22 Affect Irritable 04/23/2011 V58.69 taking high- risk medication 04/23/2011 V70.0 Preventive Medicine Estab Patient Checkup Adult 40-64 04/23/2011 724.4 LUMBAR RADICULOPATHY 04/23/2011 799.22 Affect Irritable 04/23/2011 V58.69 taking high- risk medication 04/23/2011 V70.0 Preventive Medicine Estab Patient Checkup Adult 40-64 04/23/2011 724.4 LUMBAR RADICULOPATHY 04/23/2011 799.22 Affect Irritable 04/23/2011 V58.69 taking high- risk medication 04/23/2011 V70.0 Preventive Medicine Estab Patient Checkup Adult 40-64 04/23/2011 724.4 LUMBAR RADICULOPATHY 04/23/2011 799.22 Affect Irritable 04/23/2011 V58.69 taking high- risk medication 04/23/2011 V70.0 Preventive Medicine Estab Patient Checkup Adult 40-64 04/23/2011 724.4 LUMBAR RADICULOPATHY 04/23/2011 799.22 Affect Irritable 04/23/2011 V58.69 taking high- risk medication 04/23/2011 V70.0 Preventive Medicine Estab Patient Checkup Adult 40-64 04/23/2011 724.4 LUMBAR RADICULOPATHY 04/23/2011 799.22 Affect Irritable 04/23/2011 V58.69 taking high- risk medication 04/23/2011 V70.0 Preventive Medicine Estab Patient Checkup Adult 40-64 04/23/2011 PHILIPPE SALGUERO DO 724.4 LUMBAR RADICULOPATHY 04/23/2011 PHILIPPE SALGUERO DO 799.22 Affect Irritable 04/23/2011 PHILIPPE SALGUERO DO V58.69 taking high-risk medication 04/23/2011 PHILIPPE SALGUERO DO V70.0 Preventive Medicine Estab Patient Checkup Adult 40-64 04/23/2011 724.4 LUMBAR RADICULOPATHY 04/23/2011 799.22 Affect Irritable 04/23/2011 V58.69 taking high- risk medication 04/23/2011 V70.0 Preventive Medicine Estab Patient Checkup Adult 40-64 04/23/2011 724.4 LUMBAR RADICULOPATHY 04/23/2011 799.22 Affect Irritable 04/23/2011 V58.69 taking high- risk medication 04/23/2011 V70.0 Preventive Medicine Estab Patient [...] DEEDEE J 799.22 Affect Irritable 04/23/2011 WHITE DDSDEEDEE J V58.69 taking high-risk medication 04/23/2011 WHITE [...] DEEDEE J V58.69 taking high-risk medication 04/23/2011 HAN DEL VALLESDEEDEE J V70.0 Preventive Medicine Estab Patient Checkup Adult 40-64 04/23/2011 PHILIPPE SALGUERO DO K 724.4 LUMBAR RADICULOPATHY 04/23/2011 PHILIPPE SALGUERO [...] LUND APRN V58.69 taking high-risk medication 04/23/2011 JUAREZ LUND APRNA J V70.0 Preventive Medicine Estab Patient Checkup Adult 40-64 04/23/2011 JUAREZ LUND APRNA J 724.4 LUMBAR RADICULOPATHY 04/23/2011 JUAREZ LUND APRNA J 799.22 Affect Irritable 04/23/2011 BOY LUND APRN J V58.69 taking high-risk medication 04/23/2011 BOY LUND APRN V70.0 Preventive Medicine Estab Patient Checkup Adult 40-64 04/23/2011 PHILIPPE SALGUERO DO K 724.4 LUMBAR RADICULOPATHY 04/23/2011 SALGUERO DO, [...] PHILIPPE K V58.69 taking high-risk medication 04/23/2011 PHILIPPE SALGUERO DO V70.0 Preventive Medicine Estab Patient Checkup Adult 40-64 04/23/2011 BOY LUND APRN 724.4 LUMBAR RADICULOPATHY 04/23/2011 BOY LUND APRN 799.22 Affect Irritable 04/23/2011 BOY LUND APRN V58.69 taking high-risk medication 04/23/2011 BOY LUND APRN V70.0 Preventive Medicine Estab Patient Checkup Adult 40-64 04/23/2011 IVET BARON, JACKIE R 724.4 LUMBAR RADICULOPATHY 04/23/2011 IVET LSCS, JACKIE R 799.22 Affect Irritable 04/23/2011 IVET CS, JACKIE R V58.69 taking high-risk medication 04/23/2011 IVET CSJACKIE R V70.0 Preventive Medicine Estab Patient Checkup Adult 40-64 04/23/2011 PHILIPPE SALGUERO DO K 724.4 LUMBAR RADICULOPATHY 04/23/2011 PHILIPPE SALGUERO DO 799.22 Affect Irritable 04/23/2011 PHILIPPE SALGUERO DO K V58.69 taking high-risk medication 04/23/2011 TANISHA SALGUERO DOA K V70.0 Preventive Medicine Estab Patient Checkup Adult 40-64 04/23/2011 PHILIPPE SALGUERO DO K 724.4 LUMBAR RADICULOPATHY 04/23/2011 PHILIPPE SALGUERO DO K 799.22 Affect Irritable 04/23/2011 TANISHA SALGUERO DOA K V58.69 taking high-risk medication 04/23/2011 PHILIPPE SALGUERO DO K V70.0 Preventive Medicine Estab Patient Checkup Adult 40-64 04/23/2011 CHRIS WINTER APRN 724.4 LUMBAR RADICULOPATHY 04/23/2011 CHRIS WINTER APRN 799.22 Affect Irritable 04/23/2011 CHRIS WINTER APRN V58.69 taking high-risk medication 04/23/2011 CHRIS WINTER APRN V70.0 Preventive Medicine Estab Patient Checkup Adult 40-64 04/23/2011 PHILIPPE SALGUERO DO K 724.4 LUMBAR RADICULOPATHY 04/23/2011 PHILIPPE SALGUERO DO 799.22 Affect Irritable 04/23/2011 SALGUERO DO PHILIPPE K V58.69 taking high-risk medication 04/23/2011 SALGUERO DO PHILIPPE K V70.0 Preventive Medicine Estab Patient Checkup Adult 40-64 04/23/2011 ASHELY VASQUES, BOY J 724.4 LUMBAR RADICULOPATHY 04/23/2011 ASHELY VASQUES, BOY J 799.22 Affect Irritable 04/23/2011 ASHELY [employer], BOY J V58.69 taking high-risk medication 04/23/2011 ASHELY SPAGNLERN, BOY J V70.0 Preventive Medicine Estab Patient Checkup Adult 40-64 04/23/2011 SALGUERO DO PHILIPPE K 724.4 LUMBAR RADICULOPATHY 04/23/2011 SALGUERO DO PHILIPPE K 799.22 Affect Irritable 04/23/2011 SALGUERO DO PHILIPPE K V58.69 taking high-risk medication 04/23/2011 SALGUERO DO PHILIPPE K V70.0 Preventive Medicine Estab Patient Checkup Adult 40-64 05/07/2011 112.1 CANDIDIASIS VAGINAL 05/07/2011 276.51 DEHYDRATION ( Na, H2O) 05/07/2011 477.9 Rhinitis 05/07/2011 564.00 CONSTIPATION 05/07/2011 MUOGHALU DDS, LOBO N 112.1 CANDIDIASIS VAGINAL 05/07/2011 MUOGHALU DDS, LOBO N 276.51 DEHYDRATION (Na, H2O) 05/07/2011 MUOGHALU DDS, LOBO N 477.9 Rhinitis 05/07/2011 MUOGHALU DDS, LOBO N 564.00 CONSTIPATION 05/07/2011 112.1 CANDIDIASIS VAGINAL 05/07/2011 276.51 DEHYDRATION ( Na, H2O) 05/07/2011 477.9 Rhinitis 05/07/2011 564.00 CONSTIPATION 05/07/2011 SALGUERO DO, PHILIPPE K 112.1 CANDIDIASIS VAGINAL 05/07/2011 SALGUERO DO, PHILIPPE K 276.51 DEHYDRATION (Na, H2O) 05/07/2011 SALGUERO DO, PHILIPPE K 477.9 Rhinitis 05/07/2011 SALGUERO DO, PHILIPPE K 564.00 CONSTIPATION 05/07/2011 SALGUERO DO, PHILIPPE K 112.1 CANDIDIASIS VAGINAL 05/07/2011 SALGUERO DO, PHILIPPE K 276.51 DEHYDRATION (Na, H2O) 05/07/2011 SALGUERO DO PHILIPPE K 477.9 Rhinitis 05/07/2011 SALGUERO DO, PHILIPPE K 564.00 CONSTIPATION 05/07/2011 SALGUERO DO, PHILIPPE K 112.1 CANDIDIASIS VAGINAL 05/07/2011 SALGUERO DO, PHILIPPE K 276.51 DEHYDRATION (Na, H2O) 05/07/2011 SALGUERO DO PHILIPPE K 477.9 Rhinitis 05/07/2011 SALGUERO DO PHILIPPE K 564.00 CONSTIPATION 05/07/2011 112.1 CANDIDIASIS VAGINAL 05/07/2011 276.51 DEHYDRATION ( Na, H2O) 05/07/2011 477.9 Rhinitis 05/07/2011 564.00 CONSTIPATION 05/07/2011 112.1 CANDIDIASIS VAGINAL 05/07/2011 276.51 DEHYDRATION ( Na, H2O) 05/07/2011 477.9 Rhinitis 05/07/2011 564.00 CONSTIPATION 05/07/2011 112.1 CANDIDIASIS VAGINAL 05/07/2011 276.51 DEHYDRATION ( Na, H2O) 05/07/2011 477.9 Rhinitis 05/07/2011 564.00 CONSTIPATION 05/07/2011 112.1 CANDIDIASIS VAGINAL 05/07/2011 276.51 DEHYDRATION ( Na, H2O) 05/07/2011 477.9 Rhinitis 05/07/2011 564.00 CONSTIPATION 05/07/2011 112.1 CANDIDIASIS VAGINAL 05/07/2011 276.51 DEHYDRATION ( Na, H2O) 05/07/2011 477.9 Rhinitis 05/07/2011 564.00 CONSTIPATION 05/07/2011 112.1 CANDIDIASIS VAGINAL 05/07/2011 276.51 DEHYDRATION ( Na, H2O) 05/07/2011 477.9 Rhinitis 05/07/2011 564.00 CONSTIPATION 05/07/2011 NOEMY OLVERA PHILIPPE K 112.1 CANDIDIASIS VAGINAL 05/07/2011 SALGUERO DO PHILIPPE K 276.51 DEHYDRATION (Na, H2O) 05/07/2011 SALGUERO DOTANISHAA K 477.9 Rhinitis 05/07/2011 SALGUERO DO PHILIPPE K 564.00 CONSTIPATION 05/07/2011 112.1 CANDIDIASIS VAGINAL 05/07/2011 276.51 DEHYDRATION ( Na, H2O) 05/07/2011 477.9 Rhinitis 05/07/2011 564.00 CONSTIPATION 05/07/2011 112.1 CANDIDIASIS VAGINAL 05/07/2011 276.51 DEHYDRATION ( Na, H2O) 05/07/2011 477.9 Rhinitis 05/07/2011 564.00 CONSTIPATION [...] SALGUERO DO, PHILIPPE K 564.00 CONSTIPATION 05/07/2011 SAGLUERO DO, PHILIPPE K 112.1 CANDIDIASIS VAGINAL 05/07/2011 [...] MAEVE NARAYANAN PA-C 564.00 CONSTIPATION 05/07/2011 NOEMY OLVERA, PHILIPPE K 112.1 CANDIDIASIS VAGINAL 05/07/2011 NOEMY OLVERA, PHILIPPE K 276.51 DEHYDRATION (Na, H2O) 05/07/2011 NOEMY OLVERA, PHILIPPE K 477.9 Rhinitis 05/07/2011 SALGUERO , PHILIPPE K 564.00 CONSTIPATION 05/07/2011 WHITE DDS, DEEDEE J 112.1 CANDIDIASIS VAGINAL 05/07/2011 WHITE DDS, DEEDEE J 276.51 DEHYDRATION (Na, H2O) 05/07/2011 WHITE DDS, DEEDEE J 477.9 Rhinitis 05/07/2011 WHITE DDS, DEEDEE J 564.00 CONSTIPATION 05/07/2011 BOY LUND APRN J 112.1 CANDIDIASIS VAGINAL 05/07/2011 BOY LUND APRN J 276.51 DEHYDRATION (Na, H2O) 05/07/2011 BOY LUND APRN J 477.9 Rhinitis 05/07/2011 JUAREZ LUND APRNA [...] DO, PHILIPPE K 564.00 CONSTIPATION 05/07/2011 ASHELY WHITE LEAD GRINDERJUAREZA J 112.1 CANDIDIASIS VAGINAL 05/07/2011 BOY LUND APRN J 276.51 DEHYDRATION (Na, H2O) 05/07/2011 BOY LUND APRN J 477.9 Rhinitis 05/07/2011 BOY LUND APRN J 564.00 CONSTIPATION 05/07/2011 WHITE DDS, DEEDEE [...] DO, PHILIPPE K 564.00 CONSTIPATION 05/07/2011 ASHELY WHITE LEAD GRINDERJUAREZA J 112.1 CANDIDIASIS VAGINAL 05/07/2011 ASHELY WHITE LEAD GRINDERJUAREZA J 276.51 DEHYDRATION (Na, H2O) 05/07/2011 BECKY LUND APRNINDA J 477.9 Rhinitis 05/07/2011 BECKY LUND APRNINDA J 564.00 CONSTIPATION 05/07/2011 JUAREZ LUND APRNA J 112.1 CANDIDIASIS VAGINAL 05/07/2011 BOY LUND APRN J 276.51 DEHYDRATION (Na, H2O) 05/07/2011 BOY LUND APRN J 477.9 Rhinitis 05/07/2011 ASHELY SPANGLERN, BOY J 564.00 CONSTIPATION 05/07/2011 JUAREZ LUND APRNA J 112.1 CANDIDIASIS VAGINAL 05/07/2011 BOY LUND APRN J 276.51 DEHYDRATION (Na, H2O) 05/07/2011 JUAREZ LUND APRNA J 477.9 Rhinitis 05/07/2011 ASHELY VASQUES, BOY J 564.00 CONSTIPATION 05/07/2011 JUAREZ LUND [...] BOY LUND APRN J 477.9 Rhinitis 05/07/2011 JUAREZ LUND APRNA J 564.00 CONSTIPATION 05/07/2011 JUAREZ LUND APRNA J 112.1 CANDIDIASIS VAGINAL 05/07/2011 BOY LUND APRN J 276.51 DEHYDRATION (Na, H2O) 05/07/2011 BOY LUND APRN 477.9 Rhinitis 05/07/2011 BOY LUND APRN J 564.00 CONSTIPATION 05/07/2011 BOY LUND APRN [...] BOY LUND APRN 477.9 Rhinitis 05/07/2011 BOY LUDN APRN J 564.00 CONSTIPATION 05/07/2011 [facility], JACKIE R 112.1 CANDIDIASIS VAGINAL 05/07/2011 [facility], JACKIE R 276.51 DEHYDRATION (Na, H2O) 05/07/2011 [facility], JACKIE R 477.9 Rhinitis 05/07/2011 [facility], JACKIE R 564.00 CONSTIPATION 05/07/2011 SALGUERO DO, [...] APRN A 276.51 DEHYDRATION (Na, H2O) 05/07/2011 [facility] [employer], CHRIS A 477.9 Rhinitis 05/07/2011 MOY [employer], CHRIS A 564.00 CONSTIPATION 05/07/2011 SALGUERO DO, PHILIPPE K 112.1 CANDIDIASIS VAGINAL 05/07/2011 SALGUERO DO, PHILIPPE K 276.51 DEHYDRATION (Na, H2O) 05/07/2011 SALGUERO DO, PHILIPPE K 477.9 Rhinitis 05/07/2011 SALGUERO DO, PHILIPPE K 564.00 CONSTIPATION 05/07/2011 [facility] [employer], BOY J 112.1 CANDIDIASIS VAGINAL 05/07/2011 [employer], BOY J 276.51 DEHYDRATION (Na, H2O) 05/07/2011 [employer], BOY J 477.9 Rhinitis 05/07/2011 [employer], BOY J 564.00 CONSTIPATION 05/07/2011 SALGUERO DO, PHILIPPE K 112.1 CANDIDIASIS VAGINAL 05/07/2011 SALGUERO DO, PHILIPPE K 276.51 DEHYDRATION (Na, H2O) 05/07/2011 SALGUERO DO, PHILIPPE K 477.9 Rhinitis 05/07/2011 SALGUERO DO, PHILIPPE K 564.00 CONSTIPATION 05/25/2011 338.29 OTHER CHRONIC PAIN 05/25/2011 MIRI DEL VALLES, LOBO Curiel 338.29 OTHER CHRONIC PAIN 05/25/2011 338.29 OTHER [...] APRNA J 338.29 OTHER CHRONIC PAIN 05/25/2011 [facility], JACKIE R 338.29 OTHER CHRONIC PAIN 05/25/2011 SALGUERO DO, PHILIPPE K 338.29 OTHER CHRONIC PAIN 05/25/2011 SALGUERO DO, PHILIPPE K 338.29 OTHER CHRONIC PAIN 05/25/2011 MOY SPANGLERNCHRIS Román 338.29 OTHER CHRONIC PAIN 05/25/2011 SALGUERO DO, PHILIPPE K 338.29 OTHER CHRONIC PAIN 05/25/2011 ASHELY SPANGLERNBOY Marine 338.29 OTHER CHRONIC PAIN 05/25/2011 SALGUERO DO, PHILIPPE K 338.29 OTHER CHRONIC PAIN 05/30/2011 522.5 PERIAPICAL ALVEOLAR ABSCESS 05/30/2011 MIRI DDS, LOBO Curiel 522.5 PERIAPICAL ALVEOLAR ABSCESS 05/30/2011 522.5 PERIAPICAL ALVEOLAR ABSCESS 05/30/2011 SALGUERO TANISHA OLVERAA K 522.5 PERIAPICAL ALVEOLAR ABSCESS 05/30/2011 SALGUERO DO PHILIPPE K 522.5 PERIAPICAL ALVEOLAR ABSCESS 05/30/2011 SALGUERO TANISHA OLVERAA K 522.5 PERIAPICAL ALVEOLAR ABSCESS 05/30/2011 522.5 [...] K 522.5 PERIAPICAL ALVEOLAR ABSCESS 05/30/2011 SALGUERO DOPHILIPPE K 522.5 PERIAPICAL ALVEOLAR ABSCESS 05/30/2011 WHITE DDS, DEEDEE J 522.5 PERIAPICAL ALVEOLAR ABSCESS 05/30/2011 MAEVE NARAYANAN PA-C 522.5 PERIAPICAL ALVEOLAR ABSCESS 05/30/2011 SALGUERO DOPHILIPPE K 522.5 PERIAPICAL ALVEOLAR ABSCESS 05/30/2011 WHITE DDS, DEEDEE J 522.5 PERIAPICAL ALVEOLAR ABSCESS 05/30/2011 ASHELY [employer], BOY J 522.5 PERIAPICAL ALVEOLAR ABSCESS 05/30/2011 SALGUERO DOTANISHAA K 522.5 PERIAPICAL ALVEOLAR ABSCESS 05/30/2011 SALGUERO TANISHA OLVERAA K 522.5 PERIAPICAL ALVEOLAR ABSCESS 05/30/2011 [employer], BOY J 522.5 PERIAPICAL ALVEOLAR ABSCESS 05/30/2011 WHITE DDS, DEEDEE J 522.5 PERIAPICAL ALVEOLAR ABSCESS 05/30/2011 WHITE DDS, DEEDEE J 522.5 PERIAPICAL ALVEOLAR ABSCESS 05/30/2011 PHILIPPE SALGUERO DO K 522.5 PERIAPICAL ALVEOLAR ABSCESS 05/30/2011 ASHELY SPANGLERN, BOY J 522.5 PERIAPICAL ALVEOLAR ABSCESS 05/30/2011 [employer]HE[employer], BOY J 522.5 PERIAPICAL ALVEOLAR ABSCESS 05/30/2011 ASHELY VASQUES, BOY J 522.5 PERIAPICAL ALVEOLAR ABSCESS 05/30/2011 [employer], BOY J 522.5 PERIAPICAL ALVEOLAR ABSCESS 05/30/2011 PHILIPPE SALGUERO DO K 522.5 PERIAPICAL ALVEOLAR ABSCESS 05/30/2011 PHILIPPE SALGUERO DO K 522.5 PERIAPICAL ALVEOLAR ABSCESS 05/30/2011 [employer], BOY J 522.5 PERIAPICAL ALVEOLAR ABSCESS 05/30/2011 [employer], BOY J 522.5 PERIAPICAL ALVEOLAR ABSCESS 05/30/2011 [employer], BOY J 522.5 PERIAPICAL ALVEOLAR ABSCESS 05/30/2011 TANISHA SALGUERO DOA K 522.5 PERIAPICAL ALVEOLAR ABSCESS 05/30/2011 [employer]HELY [employer], BOY J 522.5 PERIAPICAL ALVEOLAR ABSCESS 05/30/2011 IVET JACKIE DRAPER 522.5 PERIAPICAL ALVEOLAR ABSCESS 05/30/2011 PHILIPPE SALGUERO DO K 522.5 PERIAPICAL ALVEOLAR ABSCESS 05/30/2011 SALGUERO DO PHILIPPE K 522.5 PERIAPICAL ALVEOLAR ABSCESS 05/30/2011 MOY SPANGLERNCHRIS A 522.5 PERIAPICAL ALVEOLAR ABSCESS 05/30/2011 SALGUERO [...] DO PHILIPPE K 780.8 Excessive Sweating 06/29/2011 SALGUERO DOTANISHAA K 786.05 Shortness Of Breath 06/29/2011 SALGUERO DOTANISHAA K V65.42 Patient Education - Alcohol 06/29/2011 [...] DO PHILIPPE K 780.8 Excessive Sweating 06/29/2011 SALGUERO DOTANISHAA K 786.05 Shortness Of Breath 06/29/2011 SALGUERO [...] PA-C 278.02 Overweight 06/29/2011 MAEVE NARAYANAN PA-C 584.9 Acute Renal Failure 06/29/2011 MAEVE NARAYANAN PA-C 780.8 Excessive Sweating 06/29/2011 MAEVE NARAYANAN PA-C 786.05 Shortness Of Breath 06/29/2011 MAEVE NARAYANAN PA-C V65.42 Patient Education - Alcohol 06/29/2011 SALGUERO DO PHILIPPE K 278.02 Overweight 06/29/2011 SALGUERO DO PHILIPPE K 584.9 Acute Renal Failure 06/29/2011 SALGUERO DO, PHILIPPE K 780.8 Excessive Sweating 06/29/2011 SALGUERO DO PHILIPPE K 786.05 Shortness Of Breath 06/29/2011 ASLGUERO DO PHILIPPE K V65.42 Patient Education - Alcohol 06/29/2011 WHITE DDS, DEEDEE J 278.02 Overweight 06/29/2011 WHITE DDS, DEEDEE J 584.9 Acute Renal Failure 06/29/2011 WHITE DDS, DEEDEE J 780.8 Excessive Sweating 06/29/2011 WHITE DDS, DEEDEE J 786.05 Shortness Of Breath 06/29/2011 WHITE DDS, DEEDEE J V65.42 Patient Education - Alcohol 06/29/2011 BOY LUND APRN J 278.02 Overweight 06/29/2011 JUAREZ LUND APRNA J 584.9 Acute Renal Failure 06/29/2011 BECKY LUND APRNINDA J 780.8 Excessive Sweating 06/29/2011 BECKY LUND APRNINDA J 786.05 Shortness Of Breath 06/29/2011 ASHELY VASQUES BOY J V65.42 Patient Education - Alcohol 06/29/2011 SALGUERO DO PHILIPPE K 278.02 Overweight 06/29/2011 SALGUERO DO PHILIPPE K 584.9 Acute Renal Failure 06/29/2011 SALGUERO DO PHILIPPE K 780.8 Excessive Sweating 06/29/2011 SALGUERO DO PHILIPPE K 786.05 Shortness Of Breath 06/29/2011 SALGUERO DO PHILIPPE K V65.42 Patient Education - Alcohol 06/29/2011 SALGUERO DO PHILIPPE K 278.02 Overweight 06/29/2011 SALGUERO DO PHILIPPE K 584.9 Acute Renal Failure 06/29/2011 SALGUERO DO, PHILIPPE K 780.8 Excessive Sweating 06/29/2011 SALGUERO DO, PHILIPPE K 786.05 Shortness Of Breath 06/29/2011 SALGUERO DO, PHILIPPE K V65.42 Patient Education - Alcohol 06/29/2011 ASHELY WHITE LEAD GRINDER, BOY J 278.02 Overweight 06/29/2011 ASHELY WHITE LEAD GRINDER, BOY J 584.9 Acute Renal Failure 06/29/2011 ASHELY WHITE LEAD GRINDERJUAREZA J 780.8 Excessive Sweating 06/29/2011 ASHELY WHITE LEAD GRINDERJUAREZA J 786.05 Shortness Of Breath 06/29/2011 ASHELY WHITE LEAD GRINDER BOY J V65.42 Patient Education - Alcohol [...] DO PHILIPPE K 780.8 Excessive Sweating 06/29/2011 SALGUERO DO PHILIPPE K 786.05 Shortness Of Breath 06/29/2011 SALGUERO DO PHILIPPE K V65.42 Patient Education - Alcohol 06/29/2011 ASHELY WHITE LEAD GRINDERJUAREZA J 278.02 Overweight 06/29/2011 ASHELY WHITE LEAD GRINDERJUAREZA J 584.9 Acute Renal Failure 06/29/2011 ASHELY WHITE LEAD GRINDER BOY J 780.8 Excessive Sweating 06/29/2011 ASHELY SPANGLERNJUAREZA J 786.05 Shortness Of Breath 06/29/2011 BOY LUND [...] DO PHILIPPE K 780.8 Excessive Sweating 06/29/2011 SALGUERO DO PHILIPPE K 786.05 Shortness Of Breath 06/29/2011 [...] APRN V65.42 Patient Education - Alcohol 06/29/2011 PHILIPPE SALGUERO DO K 278.02 Overweight 06/29/2011 PHILIPPE SALGUERO DO K 584.9 Acute Renal Failure 06/29/2011 TANISHA [...] APRN V65.42 Patient Education - Alcohol 06/29/2011 [facility], JACKIE R 278.02 Overweight 06/29/2011 [facility], JACKIE R 584.9 Acute Renal Failure 06/29/2011 [facility], JACKIE R 780.8 Excessive Sweating 06/29/2011 [facility], JACKIE R 786.05 Shortness Of Breath 06/29/2011 [facility], JACKIE R V65.42 Patient Education - Alcohol [...] V65.42 Patient Education - Alcohol 06/29/2011 MOY WHITE LEAD GRINDER, CHRIS A 278.02 Overweight 06/29/2011 MOY WHITE LEAD GRINDER, CHRIS A 584.9 Acute Renal Failure 06/29/2011 MOY WHITE LEAD GRINDER, CHRIS A 780.8 Excessive Sweating 06/29/2011 MOY WHITE LEAD GRINDER, CHRIS A 786.05 Shortness Of Breath 06/29/2011 MOY SPANGLERN, CHRIS A V65.42 Patient Education - Alcohol 06/29/2011 SALGUERO DO, PHILIPPE K 278.02 Overweight 06/29/2011 SALGUERO DO, PHILIPPE K 584.9 Acute Renal Failure 06/29/2011 SALGUERO DO, PHILIPPE K 780.8 Excessive Sweating 06/29/2011 SALGUERO DO, PHILIPPE K 786.05 Shortness Of Breath 06/29/2011 SALGUERO DO, PHILIPPE K V65.42 Patient Education - Alcohol 06/29/2011 BOY LUND APRN J 278.02 Overweight 06/29/2011 BOY LUND APRN J 584.9 Acute Renal Failure 06/29/2011 BOY LUND [...] Alcohol 07/31/2011 564.00 UNSPECIFIED CONSTIPATION 07/31/2011 MIRI DEL VALLES, LOBO Curiel 564.00 UNSPECIFIED CONSTIPATION 07/31/2011 564.00 [...] PHILIPPE K 564.00 UNSPECIFIED CONSTIPATION 07/31/2011 HAN DDS, DEEDEE Hawthorne 564.00 UNSPECIFIED CONSTIPATION 07/31/2011 ORACIO LUNSFORD, MAEVE Pan 564.00 UNSPECIFIED CONSTIPATION 07/31/2011 SALGUERO DO, PHILIPPE K 564.00 UNSPECIFIED CONSTIPATION 07/31/2011 WHITE DDS, DEEDEE J 564.00 UNSPECIFIED CONSTIPATION 07/31/2011 ASHELY WHITE LEAD GRINDER, BOY J 564.00 UNSPECIFIED CONSTIPATION 07/31/2011 SALGUERO DO, PHILIPPE K 564.00 UNSPECIFIED CONSTIPATION 07/31/2011 SALGUERO DO, PHILIPPE K 564.00 UNSPECIFIED CONSTIPATION 07/31/2011 ASHELY WHITE LEAD GRINDER, BOY J 564.00 UNSPECIFIED CONSTIPATION 07/31/2011 WHITE DDS, DEEDEE J 564.00 UNSPECIFIED CONSTIPATION 07/31/2011 WHITE DDS, DEEDEE J 564.00 UNSPECIFIED CONSTIPATION 07/31/2011 SALGUERO DO, PHILIPPE K 564.00 UNSPECIFIED CONSTIPATION 07/31/2011 ASHELY SPANGLERN, BOY J 564.00 UNSPECIFIED CONSTIPATION 07/31/2011 ASHELY SPANGLERN, BOY J 564.00 UNSPECIFIED CONSTIPATION 07/31/2011 ASHELY VASQUES, BOY J 564.00 UNSPECIFIED CONSTIPATION 07/31/2011 ASHELY WHITE LEAD GRINDER, BOY J 564.00 UNSPECIFIED CONSTIPATION 07/31/2011 SALGUERO DO, PHILIPPE K 564.00 UNSPECIFIED CONSTIPATION 07/31/2011 SALGUERO DO, PHILIPPE K 564.00 UNSPECIFIED CONSTIPATION 07/31/2011 ASHELY WHITE LEAD GRINDER, BOY J 564.00 UNSPECIFIED CONSTIPATION 07/31/2011 ASHELY WHITE LEAD GRINDER, BOY J 564.00 UNSPECIFIED CONSTIPATION 07/31/2011 ASHELY VASQUES, BOY J 564.00 UNSPECIFIED CONSTIPATION 07/31/2011 SALGUERO DO, PHILIPPE K 564.00 UNSPECIFIED CONSTIPATION 07/31/2011 ASHELY WHITE LEAD GRINDER, BOY J 564.00 UNSPECIFIED CONSTIPATION 07/31/2011 [facility], JACKIE R 564.00 UNSPECIFIED CONSTIPATION 07/31/2011 SALGUERO DO, PHILIPPE K 564.00 UNSPECIFIED CONSTIPATION 07/31/2011 SALGUERO DO, PHILIPPE K 564.00 UNSPECIFIED CONSTIPATION 07/31/2011 CHRIS WINTER APRN 564.00 UNSPECIFIED CONSTIPATION 07/31/2011 SALGUERO DO, PHILIPPE K 564.00 UNSPECIFIED CONSTIPATION 07/31/2011 ASHELY VASQUES, BOY J 564.00 UNSPECIFIED CONSTIPATION 07/31/2011 TANISHA SALGUERO DOA K 564.00 UNSPECIFIED CONSTIPATION 08/20/2011 616.10 Vaginitis And Vulvovaginitis Unspecified 08/20/2011 724.2 LUMBAGO 08/20/2011 783.1 ABNORMAL WEIGHT GAIN 08/20/2011 MUOGHALU DDS, LOBO N 616.10 Vaginitis And Vulvovaginitis Unspecified 08/20/2011 MUOGHALU DDS, LOBO N 724.2 LUMBAGO 08/20/2011 MUOGHALU DDS, LOBO N 783.1 ABNORMAL WEIGHT GAIN 08/20/2011 616.10 Vaginitis And Vulvovaginitis Unspecified 08/20/2011 724.2 LUMBAGO 08/20/2011 783.1 ABNORMAL WEIGHT GAIN 08/20/2011 PHILIPPE SALGUERO DO K 616.10 Vaginitis And Vulvovaginitis Unspecified 08/20/2011 PHILIPPE SALGUERO DO K 724.2 LUMBAGO 08/20/2011 PHILIPPE SALGUERO DO K 783.1 ABNORMAL WEIGHT GAIN 08/20/2011 PHILIPPE SALGUERO DO K 616.10 Vaginitis And Vulvovaginitis Unspecified 08/20/2011 PHILIPPE SALGUERO DO K 724.2 LUMBAGO 08/20/2011 PHILIPPE SALGUERO DO K 783.1 ABNORMAL WEIGHT GAIN 08/20/2011 PHILIPPE SALGUERO DO K 616.10 Vaginitis And Vulvovaginitis Unspecified 08/20/2011 PHILIPPE SALGUERO DO K 724.2 LUMBAGO 08/20/2011 PHILIPPE SALGUERO DO K 783.1 ABNORMAL WEIGHT GAIN 08/20/2011 616.10 [...] 783.1 ABNORMAL WEIGHT GAIN 08/20/2011 SALGUERO DO, HPILIPPE K 616.10 Vaginitis And Vulvovaginitis Unspecified 08/20/2011 [...] K 783.1 ABNORMAL WEIGHT GAIN 08/20/2011 WHITE IVONSDEEDEE J 616.10 Vaginitis And Vulvovaginitis Unspecified 08/20/2011 WHITE IVONSDEEDEE J 724.2 LUMBAGO 08/20/2011 WHITE DDS, DEEDEE J 783.1 ABNORMAL WEIGHT GAIN 08/20/2011 MAEVE NARAYANAN PA-C 616.10 Vaginitis And Vulvovaginitis Unspecified 08/20/2011 MAEVE NARAYANAN PA-C 724.2 LUMBAGO 08/20/2011 MAEVE NARAYANAN PA-C 783.1 ABNORMAL WEIGHT GAIN 08/20/2011 SALGUERO DO, PHILIPPE K 616.10 Vaginitis And Vulvovaginitis Unspecified 08/20/2011 NOEMY OLVERA, PHILIPPE K 724.2 LUMBAGO 08/20/2011 NOEMY OLVERA PHILIPPE K 783.1 ABNORMAL WEIGHT GAIN 08/20/2011 WHITE DDSDEEDEE J 616.10 Vaginitis And Vulvovaginitis Unspecified 08/20/2011 WHITE DDSDEEDEE J 724.2 LUMBAGO 08/20/2011 WHITE DDSDEEDEE J 783.1 ABNORMAL WEIGHT GAIN 08/20/2011 JUAREZ LUND APRNA J 616.10 Vaginitis And Vulvovaginitis Unspecified 08/20/2011 ASHELY SPANGLERNBECKYBOY J 724.2 LUMBAGO 08/20/2011 JUAREZ LUND APRNA J 783.1 ABNORMAL WEIGHT GAIN 08/20/2011 NOEMY OLVERA PHILIPPE K 616.10 Vaginitis And Vulvovaginitis Unspecified 08/20/2011 NOEMY OLVERA, PHILIPPE K 724.2 LUMBAGO 08/20/2011 NOEMY OLVERA PHILIPPE K 783.1 ABNORMAL WEIGHT GAIN 08/20/2011 NOEMY OLVERA, PHILIPPE K 616.10 Vaginitis And Vulvovaginitis Unspecified 08/20/2011 NOEMY OLVERA, PHILIPPE K 724.2 LUMBAGO 08/20/2011 NOEMY OLVERA PHILIPPE K 783.1 ABNORMAL WEIGHT GAIN 08/20/2011 JUAREZ LUND APRNA J 616.10 Vaginitis And Vulvovaginitis Unspecified 08/20/2011 JUAREZ LUND APRNA J 724.2 LUMBAGO 08/20/2011 JUAREZ LUND APRNA J 783.1 ABNORMAL WEIGHT GAIN 08/20/2011 WHITE DDSDEEDEE J 616.10 Vaginitis And Vulvovaginitis Unspecified 08/20/2011 WHITE DDSDEEDEE J 724.2 LUMBAGO 08/20/2011 HAN DEL VALLESDEEDEE J 783.1 ABNORMAL WEIGHT GAIN 08/20/2011 WHITE DDSDEEDEE J 616.10 Vaginitis And Vulvovaginitis Unspecified 08/20/2011 WHITE DDSDEEDEE J 724.2 LUMBAGO 08/20/2011 WHITE DDSDEEDEE J 783.1 ABNORMAL WEIGHT GAIN 08/20/2011 SALGUERO DO, PHILIPPE K 616.10 Vaginitis And Vulvovaginitis Unspecified 08/20/2011 SALGUERO DO, PHILIPPE K 724.2 LUMBAGO 08/20/2011 SALGUERO DO, PHILIPPE K 783.1 ABNORMAL WEIGHT GAIN 08/20/2011 ASHELY WHITE LEAD GRINDER, BOY J 616.10 Vaginitis And Vulvovaginitis Unspecified 08/20/2011 ASHELY WHITE LEAD GRINDER, BOY J 724.2 LUMBAGO 08/20/2011 ASHELY WHITE LEAD GRINDER, BOY J 783.1 ABNORMAL WEIGHT GAIN 08/20/2011 ASHELY WHITE LEAD GRINDER, BOY J 616.10 Vaginitis And Vulvovaginitis Unspecified 08/20/2011 ASHELY WHITE LEAD GRINDER, BOY J 724.2 LUMBAGO 08/20/2011 ASHELY WHITE LEAD GRINDER, BOY J 783.1 ABNORMAL WEIGHT GAIN 08/20/2011 ASHELY WHITE LEAD GRINDER, BOY J 616.10 Vaginitis And Vulvovaginitis Unspecified 08/20/2011 ASHELY WHITE LEAD GRINDER, BOY J 724.2 LUMBAGO 08/20/2011 ASHELY WHITE LEAD GRINDER, BOY J 783.1 ABNORMAL WEIGHT GAIN 08/20/2011 ASHELY WHITE LEAD GRINDER, BOY J 616.10 Vaginitis And Vulvovaginitis Unspecified 08/20/2011 ASHELY WHITE LEAD GRINDER, BOY J 724.2 LUMBAGO 08/20/2011 ASHELY WHITE LEAD GRINDER, BOY J 783.1 ABNORMAL WEIGHT GAIN 08/20/2011 SALGUERO DO, PHILIPPE K 616.10 Vaginitis And Vulvovaginitis Unspecified 08/20/2011 SALGUERO DO, PHILIPPE K 724.2 LUMBAGO 08/20/2011 NOEMY OLVERA, PHILIPPE K 783.1 ABNORMAL WEIGHT GAIN 08/20/2011 SALGUERO DO, PHILIPPE K 616.10 Vaginitis And Vulvovaginitis Unspecified 08/20/2011 SALGUERO DO, PHILIPPE K 724.2 LUMBAGO 08/20/2011 SALGUERO DO, PHILIPPE K 783.1 ABNORMAL WEIGHT GAIN 08/20/2011 ASHELY WHITE LEAD GRINDER, BOY J 616.10 Vaginitis And Vulvovaginitis Unspecified 08/20/2011 ASHELY CAPRICE, BOY J 724.2 LUMBAGO 08/20/2011 ASHELY WHITE LEAD GRINDER, BOY J 783.1 ABNORMAL WEIGHT GAIN 08/20/2011 BECKY LUND APRNINDA J 616.10 Vaginitis And Vulvovaginitis Unspecified 08/20/2011 ASHELY WHITE LEAD GRINDER, BOY J 724.2 LUMBAGO 08/20/2011 ASHELY WHITE LEAD GRINDER, BOY J 783.1 ABNORMAL WEIGHT GAIN 08/20/2011 BECKY LUND APRNINDA J 616.10 Vaginitis And Vulvovaginitis Unspecified 08/20/2011 ASHELY WHITE LEAD GRINDER, BOY J 724.2 LUMBAGO 08/20/2011 ASHELY VASQUES, BOY J 783.1 ABNORMAL WEIGHT GAIN 08/20/2011 SALGUERO DO PHILIPPE K 616.10 Vaginitis And Vulvovaginitis Unspecified 08/20/2011 SALGUERO , PHILIPPE K 724.2 LUMBAGO 08/20/2011 NOEMY OLVERA PHILIPPE K 783.1 ABNORMAL WEIGHT GAIN 08/20/2011 BOY LUND APRN J 616.10 Vaginitis And Vulvovaginitis Unspecified 08/20/2011 BECKY LUND APRNINDA J 724.2 LUMBAGO 08/20/2011 ASHELY VASQUES BOY J 783.1 ABNORMAL WEIGHT GAIN 08/20/2011 [facility], JACKIE R 616.10 Vaginitis And Vulvovaginitis Unspecified 08/20/2011 [facility], JACKIE R 724.2 LUMBAGO 08/20/2011 [facility], JACKIE R 783.1 ABNORMAL WEIGHT GAIN 08/20/2011 [...] 616.10 Vaginitis And Vulvovaginitis Unspecified 08/20/2011 MOY WHITE LEAD GRINDER, CHRIS A 724.2 LUMBAGO 08/20/2011 MOY SPANGLERCHRIS Curiel A 783.1 ABNORMAL WEIGHT GAIN 08/20/2011 TANISHA SALUGERO DOA K 616.10 Vaginitis And Vulvovaginitis Unspecified 08/20/2011 SALGUERO DO PHILIPPE K 724.2 LUMBAGO 08/20/2011 NOEMY OLVERA PHILIPPE K 783.1 ABNORMAL WEIGHT GAIN 08/20/2011 ASHELY WHITE LEAD GRINDER, BOY J 616.10 Vaginitis And Vulvovaginitis Unspecified 08/20/2011 ASHELY WHITE LEAD GRINDER, BOY J 724.2 LUMBAGO 08/20/2011 BECKY LUND APRNINDA J 783.1 ABNORMAL WEIGHT GAIN 08/20/2011 NOEMY [...] PHILIPPE K 782.3 EDEMA 10/09/2011 SALGUERO DO, PHILPIPE K 782.62 Flushing 10/09/2011 SALGUERO DO, PHILIPPE [...] WHITE DDS, DEEDEE J 782.62 Flushing 10/09/2011 BOY LUND APRN J 719.45 Pain In Joint Involving Pelvic Region And Thigh 10/09/2011 BOY LUND APRN J 729.5 Pain In Limb 10/09/2011 BOY LUND APRN J 782.3 EDEMA 10/09/2011 ASHELY BOY VASQUES J 782.62 Flushing 10/09/2011 SALGUERO DO, PHILIPPE [...] APRNA J 729.5 Pain In Limb 10/09/2011 ASHELY SPANGLERNJUAREZA J 782.3 EDEMA 10/09/2011 ASHELY WHITE LEAD GRINDERBECKYBOY J 782.62 Flushing 10/09/2011 WHITE DDS, DEEDEE J 719.45 Pain In Joint Involving Pelvic Region And Thigh 10/09/2011 WHITE DDSDEEDEE J 729.5 Pain In Limb 10/09/2011 WHITE [...] DO, PHILIPPE K 782.62 Flushing 10/09/2011 ASHELY WHITE LEAD GRINDER BOY J 719.45 Pain In Joint Involving Pelvic Region And Thigh 10/09/2011 JUAREZ LUND APRNA J 729.5 Pain In Limb 10/09/2011 ASHELY CAPRICE BOY J 782.3 EDEMA 10/09/2011 ASHELY WHITE LEAD GRINDER, BOY J 782.62 Flushing 10/09/2011 ASHELY WHITE LEAD GRINDER, BOY J 719.45 Pain In Joint Involving Pelvic Region And Thigh 10/09/2011 ASHELY SPANGLERN BOY J 729.5 Pain In Limb 10/09/2011 ASHELY SPANGLERN, BOY J 782.3 EDEMA 10/09/2011 ASHELY WHITE LEAD GRINDER, BOY J 782.62 Flushing 10/09/2011 ASHELY WHITE LEAD GRINDER BOY J 719.45 Pain In Joint Involving Pelvic Region And Thigh 10/09/2011 ASHELY WHITE LEAD GRINDER, BOY J 729.5 Pain In Limb 10/09/2011 ASHELY WHITE LEAD GRINDER, BOY J 782.3 EDEMA 10/09/2011 ASHELY WHITE LEAD GRINDER, BOY J 782.62 Flushing 10/09/2011 ASHELY WHITE LEAD GRINDER, BOY J 719.45 Pain In Joint Involving Pelvic Region And Thigh 10/09/2011 ASHELY WHITE LEAD GRINDER, BOY J 729.5 Pain In Limb 10/09/2011 ASHELY WHITE LEAD GRINDER, BOY J 782.3 EDEMA 10/09/2011 BOY LUND APRN 782.62 Flushing 10/09/2011 SALGUERO DO, PHILIPPE K [...] Pain In Limb 10/09/2011 BOY LUND APRN 782.3 EDEMA 10/09/2011 ASHELY BOY VASQUES J 782.62 Flushing 10/09/2011 BOY LUND APRN [...] LUND APRN J 782.62 Flushing 10/09/2011 SALGUERO DO PHILIPPE [...] Pain In Limb 10/09/2011 BOY LUND APRN 782.3 EDEMA 10/09/2011 ASHELY BOY VASQUES 782.62 Flushing 10/09/2011 [facility], JACKIE R [...] SALGUERO DO, PHILIPPE K 782.62 Flushing 10/09/2011 MOY VASQUES, CHRIS A 719.45 Pain In Joint Involving Pelvic Region And Thigh 10/09/2011 MOY WHITE LEAD GRINDER, CHRIS A 729.5 Pain In Limb 10/09/2011 MOY WHITE LEAD GRINDER CHRIS A 782.3 EDEMA 10/09/2011 MOY WHITE LEAD GRINDER, CHRIS A 782.62 Flushing 10/09/2011 SALGUERO DO, [...] Pain In Limb 10/09/2011 BOY LUND APRN 782.3 EDEMA 10/09/2011 BOY LUND APRN 782.62 Flushing 10/09/2011 SALGUERO DO PHILIPPE K 719.45 Pain In Joint Involving Pelvic Region And Thigh 10/09/2011 SALGUERO DO PHILIPPE K 729.5 Pain In Limb 10/09/2011 SALGUERO DO PHILIPPE K 782.3 EDEMA 10/09/2011 SALGUERO DO, PHILIPPE K 782.62 Flushing 01/15/2012 704.8 Folliculitis 01/15/2012 MIRI JACOBSON, LOBO N 704.8 Folliculitis 01/15/2012 704.8 Folliculitis [...] DDS, DEEDEE J 704.8 Folliculitis 01/15/2012 ASHELY WHITE LEAD GRINDER, BOY J 704.8 Folliculitis 01/15/2012 SALGUERO DO, PHILIPPE K 704.8 Folliculitis 01/15/2012 SALGUERO DO, PHILIPPE K 704.8 Folliculitis 01/15/2012 ASHELY WHITE LEAD GRINDER, BOY J 704.8 Folliculitis 01/15/2012 WHITE DDS, DEEDEE J 704.8 Folliculitis 01/15/2012 WHITE DDS, DEEDEE J 704.8 Folliculitis 01/15/2012 SALGUERO DO, PHILIPPE K 704.8 Folliculitis 01/15/2012 ASHELY WHITE LEAD GRINDER, BOY J 704.8 Folliculitis 01/15/2012 ASHELY WHITE LEAD GRINDER, BOY J 704.8 Folliculitis 01/15/2012 ASHELY WHITE LEAD GRINDER, BOY J 704.8 Folliculitis 01/15/2012 ASHELY WHITE LEAD GRINDER, BOY J 704.8 Folliculitis 01/15/2012 SALGUERO DO, PHILIPPE K 704.8 Folliculitis 01/15/2012 SALGUERO DO, PHILIPPE K 704.8 Folliculitis 01/15/2012 ASHELY WHITE LEAD GRINDER, BOY J 704.8 Folliculitis 01/15/2012 ASHELY WHITE LEAD GRINDER, BOY J 704.8 Folliculitis 01/15/2012 ASHELY WHITE LEAD GRINDER, BOY J 704.8 Folliculitis 01/15/2012 SALGUERO DO, PHILIPPE K 704.8 Folliculitis 01/15/2012 ASHELY WHITE LEAD GRINDER, BOY J 704.8 Folliculitis 01/15/2012 JACKIE PACHECO 704.8 Folliculitis 01/15/2012 ASLGUERO DO, PHILIPPE K 704.8 Folliculitis 01/15/2012 SALGUERO DO PHILIPPE K 704.8 Folliculitis 01/15/2012 CHRIS WINTER APRN 704.8 Folliculitis 01/15/2012 PHILIPPE SALGUERO DO K 704.8 Folliculitis 01/15/2012 BOY LUND APRN 704.8 Folliculitis 01/15/2012 SALGUERO PHILIPPE OLVERA K 704.8 Folliculitis 02/04/2012 276.8 HYPOPOTASSEMIA 02/04/2012 [...] OF SKIN AND SUBCUTANEOUS TISSUE 02/04/2012 PHILIPPE SLAGUERO DO K 728.85 SPASM OF MUSCLE 02/04/2012 PHILIPPE SALGUERO DO K 728.87 Muscle Weakness (generalized) 02/04/2012 PHILIPPE SALGEURO DO K 786.07 Wheezing 02/04/2012 TANISHA SALGUERO DOA K 276.8 HYPOPOTASSEMIA 02/04/2012 PHILIPPE SALGUERO DO K 311 DEPRESSIVE DISORDER NOT ELSEWHERE CLASSIFIED 02/04/2012 PHILIPPE SALGUERO DO K 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 02/04/2012 TANISHA SALGUERO DOA K 709.9 skin lesion [Sx] 02/04/2012 TANISHA SALGUERO DOA K 728.85 SPASM OF MUSCLE 02/04/2012 TANISHA SALGUERO DOA K 728.87 Muscle Weakness (generalized) 02/04/2012 TANISHA SALGUERO DOA K 786.07 Wheezing 02/04/2012 TANISHA SALGUERO DOA K 276.8 HYPOPOTASSEMIA 02/04/2012 TANISHA SALGUERO DOA K 311 DEPRESSIVE DISORDER NOT ELSEWHERE CLASSIFIED 02/04/2012 PHILIPPE SALGUERO DO K 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 02/04/2012 PHILIPPE SALGUERO DO K 709.9 skin lesion [Sx] 02/04/2012 TANISHA SALGUERO DOA K 728.85 SPASM OF MUSCLE 02/04/2012 TANISHA SALGUERO DOA K 728.87 Muscle Weakness (generalized) 02/04/2012 PHILIPPE SALGUERO DO K 786.07 Wheezing 02/04/2012 276.8 HYPOPOTASSEMIA 02/04/2012 311 DEPRESSIVE DISORDER NOT ELSEWHERE CLASSIFIED 02/04/2012 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 02/04/2012 709.9 skin lesion [ Sx] 02/04/2012 728.85 SPASM OF MUSCLE 02/04/2012 728.87 Muscle Weakness (generalized) 02/04/2012 786.07 Wheezing 02/04/2012 276.8 HYPOPOTASSEMIA 02/04/2012 311 DEPRESSIVE DISORDER NOT ELSEWHERE CLASSIFIED 02/04/2012 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 02/04/2012 709.9 skin lesion [ Sx] 02/04/2012 728.85 SPASM OF MUSCLE 02/04/2012 728.87 Muscle Weakness (generalized) 02/04/2012 786.07 Wheezing 02/04/2012 276.8 HYPOPOTASSEMIA 02/04/2012 311 DEPRESSIVE DISORDER NOT ELSEWHERE CLASSIFIED 02/04/2012 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 02/04/2012 709.9 skin lesion [ Sx] 02/04/2012 728.85 SPASM OF MUSCLE 02/04/2012 728.87 Muscle Weakness (generalized) 02/04/2012 786.07 Wheezing 02/04/2012 276.8 HYPOPOTASSEMIA 02/04/2012 311 DEPRESSIVE DISORDER NOT ELSEWHERE CLASSIFIED 02/04/2012 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 02/04/2012 709.9 SKIN LESION [ SX] 02/04/2012 728.85 SPASM OF MUSCLE 02/04/2012 728.87 Muscle Weakness (generalized) 02/04/2012 786.07 Wheezing 02/04/2012 276.8 HYPOPOTASSEMIA 02/04/2012 311 DEPRESSIVE DISORDER NOT ELSEWHERE CLASSIFIED 02/04/2012 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 02/04/2012 709.9 SKIN LESION [ SX] 02/04/2012 728.85 SPASM OF MUSCLE 02/04/2012 728.87 Muscle Weakness (generalized) 02/04/2012 786.07 Wheezing 02/04/2012 276.8 HYPOPOTASSEMIA 02/04/2012 311 DEPRESSIVE DISORDER NOT ELSEWHERE CLASSIFIED 02/04/2012 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 02/04/2012 709.9 SKIN LESION [ SX] 02/04/2012 728.85 SPASM OF MUSCLE 02/04/2012 728.87 [...] ASYMPTOMATIC VARICOSE VEINS 02/04/2012 709.9 SKIN LESION [ SX] 02/04/2012 728.85 SPASM OF MUSCLE 02/04/2012 728.87 Muscle Weakness (generalized) 02/04/2012 786.07 Wheezing 02/04/2012 276.8 HYPOPOTASSEMIA 02/04/2012 311 DEPRESSIVE DISORDER NOT ELSEWHERE CLASSIFIED 02/04/2012 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 02/04/2012 709.9 SKIN LESION [ SX] 02/04/2012 728.85 SPASM OF MUSCLE 02/04/2012 728.87 Muscle Weakness (generalized) 02/04/2012 786.07 Wheezing 02/04/2012 SALGUERO DO, PHILIPPE K 276.8 HYPOPOTASSEMIA 02/04/2012 SALGUERO DO, PHILIPPE K 311 DEPRESSIVE DISORDER NOT ELSEWHERE CLASSIFIED 02/04/2012 SALUGERO DO, PHILIPPE K 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 [...] PHILIPPE SALGUERO DO K 786.07 Wheezing 02/04/2012 PHILIPPE SALGUERO DO K 276.8 HYPOPOTASSEMIA 02/04/2012 TANISHA SALGUERO DOA K 311 DEPRESSIVE DISORDER NOT ELSEWHERE CLASSIFIED 02/04/2012 PHILIPPE SALGUERO DO K 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 02/04/2012 TANISHA SALGUERO DOA K 709.9 SKIN LESION [SX] 02/04/2012 TANISHA SALGUERO DOA K 728.85 SPASM OF MUSCLE 02/04/2012 TANISHA SALGUERO DOA K 728.87 Muscle Weakness (generalized) 02/04/2012 PHILIPPE SALGUERO DO K 786.07 Wheezing 02/04/2012 WHITE DDS, DEEDEE J 276.8 HYPOPOTASSEMIA 02/04/2012 WHITE DDS, DEEDEE J 311 DEPRESSIVE DISORDER NOT ELSEWHERE CLASSIFIED 02/04/2012 WHITE DDS, DEEDEE J 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 02/04/2012 WHITE DDS, DEEDEE J 709.9 SKIN LESION [SX] 02/04/2012 WHITE DDS, DEEDEE J 728.85 SPASM OF MUSCLE 02/04/2012 WHITE DDS, DEEDEE J 728.87 Muscle Weakness (generalized) 02/04/2012 WHITE DDS, DEEDEE [place] 786.07 Wheezing 02/04/2012 MAEVE NARAYANAN PA-C 276.8 HYPOPOTASSEMIA 02/04/2012 MAEVE NARAYANAN PA-C 311 DEPRESSIVE DISORDER NOT ELSEWHERE CLASSIFIED 02/04/2012 MAEVE NARAYANAN PA-C 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 02/04/2012 MAEVE NARAYANAN PA-C 709.9 SKIN LESION [SX] 02/04/2012 MAEVE NARAYANAN PA-C 728.85 SPASM OF MUSCLE 02/04/2012 MAEVE NARAYANAN PA-C 728.87 Muscle Weakness (generalized) 02/04/2012 MAEVE NARAYANAN PA-C 786.07 Wheezing 02/04/2012 PHILIPPE SALGUERO DO K [...] PHILIPPE SALGUERO DO K 786.07 Wheezing 02/04/2012 WHITE DDSDEEDEE J 276.8 HYPOPOTASSEMIA 02/04/2012 WHITE DDSSARABJITON J 311 DEPRESSIVE DISORDER NOT ELSEWHERE CLASSIFIED 02/04/2012 WHITE DDSDEEDEE J 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 02/04/2012 WHITE DDSDEEDEE J 709.9 SKIN LESION [SX] 02/04/2012 WHITE IVONSDEEDEE J 728.85 SPASM OF MUSCLE 02/04/2012 WHITE [...] BECKY LUND APRNINDA J 786.07 Wheezing 02/04/2012 PHILIPPE SALGUERO DO K 276.8 HYPOPOTASSEMIA 02/04/2012 PHILIPPE SALGUERO DO K 311 DEPRESSIVE DISORDER NOT ELSEWHERE CLASSIFIED 02/04/2012 PHILIPPE SALGUERO DO 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 02/04/2012 PHILIPPE SALGUERO DO 709.9 SKIN LESION [SX] 02/04/2012 TANISHA SALGUERO DOA [place] 728.85 SPASM OF MUSCLE 02/04/2012 NOEMY OLVERA PHILIPPE K 728.87 Muscle Weakness (generalized) 02/04/2012 NOEMY OLVERA PHILIPPE K 786.07 Wheezing 02/04/2012 NOEYM OLVERA PHILIPPE K 276.8 HYPOPOTASSEMIA 02/04/2012 NOEMY OLVERA PHILIPPE K 311 DEPRESSIVE DISORDER NOT ELSEWHERE CLASSIFIED 02/04/2012 NOEMY OLVERA PHILIPPE K 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 02/04/2012 TANISHA SALGUERO DOA K 709.9 SKIN LESION [SX] 02/04/2012 TANISHA SALGUERO DOA K 728.85 SPASM OF MUSCLE 02/04/2012 NOEMY OLVERA PHILIPPE K 728.87 Muscle Weakness (generalized) 02/04/2012 NOEMY OLVERA PHILIPPE K 786.07 Wheezing 02/04/2012 JUAREZ LUND APRNA J 276.8 HYPOPOTASSEMIA 02/04/2012 JUAREZ LUND APRNA [place] 311 DEPRESSIVE DISORDER NOT ELSEWHERE CLASSIFIED 02/04/2012 JUAREZ LUND APRNA J 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 02/04/2012 JUAREZ LUND APRNA J 709.9 SKIN LESION [SX] 02/04/2012 JUAREZ LUND APRNA J 728.85 SPASM OF MUSCLE 02/04/2012 ASHELY VASQUES BOY J 728.87 Muscle Weakness (generalized) 02/04/2012 BOY [...] WHITE DDS, DEEDEE J 786.07 Wheezing 02/04/2012 NOEMY OLVERA PHILIPPE K 276.8 HYPOPOTASSEMIA 02/04/2012 TANISHA SALGUERO DOA K 311 DEPRESSIVE DISORDER NOT ELSEWHERE CLASSIFIED 02/04/2012 TANISHA SALGUERO DOA K 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 02/04/2012 TANISHA SALGUERO DOA K 709.9 SKIN LESION [SX] 02/04/2012 SALGUERO TANISHA OLVERAA K 728.85 SPASM OF MUSCLE 02/04/2012 TANISHA SALGUERO DOA K 728.87 Muscle Weakness (generalized) 02/04/2012 TANISHA [...] LUND APRN 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 02/04/2012 JUAREZ LUND APRNA Marine 709.9 SKIN LESION [SX] 02/04/2012 JUAREZ LUND APRNA J 728.85 SPASM OF MUSCLE 02/04/2012 JUAREZ LUND APRNA J 728.87 Muscle Weakness (generalized) 02/04/2012 BOY LUND APRN 786.07 Wheezing 02/04/2012 BOY LUND APRN J [...] 02/04/2012 BOY LUND APRN 786.07 Wheezing 02/04/2012 NOEMY DO PHILIPPE K 276.8 HYPOPOTASSEMIA 02/04/2012 NOEMY OLVERA PHILIPPE K 311 DEPRESSIVE DISORDER NOT ELSEWHERE CLASSIFIED 02/04/2012 NOEMY DO PHILIPPE K 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 [...] NOT ELSEWHERE CLASSIFIED 02/04/2012 JUAREZ LUND APRNA J 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 02/04/2012 JUAREZ LUND [...] APRNA Marine 728.85 SPASM OF MUSCLE 02/04/2012 ASHELY VASQUES BOY J 728.87 Muscle Weakness (generalized) 02/04/2012 JUAREZ LUND APRNA Marine 786.07 Wheezing 02/04/2012 JUAREZ LUND APRNA Marine 276.8 HYPOPOTASSEMIA 02/04/2012 JUAREZ LUND APRNA Marine 311 DEPRESSIVE DISORDER NOT ELSEWHERE CLASSIFIED 02/04/2012 BOY LUND APRN 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 02/04/2012 JUAREZ LUND APRNA Marine 709.9 SKIN LESION [SX] 02/04/2012 BECKY LUND APRNINDA J 728.85 SPASM OF MUSCLE 02/04/2012 BECKY LUND APRNINDA J 728.87 Muscle Weakness (generalized) 02/04/2012 BOY LUND APRN 786.07 Wheezing 02/04/2012 PHILIPPE SALGUERO DO K 276.8 HYPOPOTASSEMIA 02/04/2012 NOEMY OLVERA PHILIPPE K 311 DEPRESSIVE DISORDER NOT ELSEWHERE CLASSIFIED 02/04/2012 PHILIPPE SALGUERO DO 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 02/04/2012 SALGUERO DO, PHILIPPE K 709.9 SKIN LESION [SX] 02/04/2012 SALGUERO DO, PHILIPPE K 728.85 SPASM OF MUSCLE 02/04/2012 SALGUERO DO, PHILIPPE K 728.87 Muscle Weakness (generalized) 02/04/2012 SALGUERO DO PHILIPPE K 786.07 Wheezing 02/04/2012 BOY LUND APRN J 276.8 HYPOPOTASSEMIA 02/04/2012 BOY LUND APRN J 311 DEPRESSIVE DISORDER NOT ELSEWHERE CLASSIFIED 02/04/2012 BOY LUND APRN J 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 02/04/2012 BOY LUND APRN J 709.9 SKIN LESION [SX] 02/04/2012 BOY LUND APRN J 728.85 SPASM OF MUSCLE 02/04/2012 JUAREZ LUND APRNA J 728.87 Muscle Weakness (generalized) 02/04/2012 BOY LUND APRN J 786.07 Wheezing 02/04/2012 IVET MAYCS, JACKIE R 276.8 HYPOPOTASSEMIA 02/04/2012 IVET MAYCS, JACKIE R 311 DEPRESSIVE DISORDER NOT ELSEWHERE CLASSIFIED 02/04/2012 IVET MAYCS, JACKIE R 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 02/04/2012 IVET MAYCS, JACKIE R 709.9 SKIN LESION [SX] 02/04/2012 VIET MAYCS, JACKIE R 728.85 SPASM OF MUSCLE 02/04/2012 IVET MAYCS, JACKIE R 728.87 Muscle Weakness (generalized) 02/04/2012 IVET LALOCS, JACKIE R 786.07 Wheezing 02/04/2012 TANISHA SALGUERO DOA K 276.8 HYPOPOTASSEMIA 02/04/2012 NOEMY OLVERA PHILIPPE K 311 DEPRESSIVE DISORDER NOT ELSEWHERE CLASSIFIED 02/04/2012 SALGUEOR DO PHILIPPE K 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 02/04/2012 SALGUERO DO PHILIPPE K 709.9 SKIN LESION [SX] 02/04/2012 SALGUERO DO PHILIPPE K 728.85 SPASM OF MUSCLE 02/04/2012 SALGUERO DO, PHILIPPE K 728.87 Muscle Weakness (generalized) 02/04/2012 NOEMY OLVERA PHILIPPE K 786.07 Wheezing 02/04/2012 NOEMY OLVERA PHILIPPE K 276.8 HYPOPOTASSEMIA 02/04/2012 NOEMY OLVERA PHILIPPE K 311 DEPRESSIVE DISORDER NOT ELSEWHERE CLASSIFIED 02/04/2012 SALGUERO PHILIPPE OLVERA K 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 02/04/2012 SALGUERO TANISHA OLVERAA K 709.9 SKIN LESION [SX] 02/04/2012 SALGUERO TANISHA OLVERAA K 728.85 SPASM OF MUSCLE 02/04/2012 SALGUERO DO PHILIPPE K 728.87 Muscle Weakness (generalized) 02/04/2012 SALGUERO TANISHA OLVERAA K 786.07 Wheezing 02/04/2012 MOYCHRIS DELGADO APRN A 276.8 HYPOPOTASSEMIA 02/04/2012 MOYCHRIS DELGADO APRN A 311 DEPRESSIVE DISORDER NOT ELSEWHERE CLASSIFIED 02/04/2012 MOYCHRIS DELGADO APRN A 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 02/04/2012 MOYCHRIS DELGADO APRN 709.9 SKIN LESION [SX] 02/04/2012 MOYCHRIS DELGADO APRN 728.85 SPASM OF MUSCLE 02/04/2012 CHRIS WINTER APRN 728.87 Muscle Weakness (generalized) 02/04/2012 CHRIS WINTER APRN 786.07 Wheezing 02/04/2012 NOEMY PHILIPPE OLVERA K 276.8 HYPOPOTASSEMIA 02/04/2012 PHILIPPE SALGUERO DO K 311 DEPRESSIVE DISORDER NOT ELSEWHERE CLASSIFIED 02/04/2012 PHILIPPE SALGUERO DO K 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 02/04/2012 PHILIPPE SALGUERO DO K 709.9 SKIN LESION [SX] 02/04/2012 SALGUERO TANISHA OLVERAA K 728.85 SPASM OF MUSCLE 02/04/2012 TANISHA SALGUERO DOA K 728.87 Muscle Weakness (generalized) 02/04/2012 PHILIPPE SALGUERO DO 786.07 Wheezing 02/04/2012 BOY LUND APRN 276.8 HYPOPOTASSEMIA 02/04/2012 BOY LUND APRN 311 DEPRESSIVE DISORDER NOT ELSEWHERE CLASSIFIED 02/04/2012 BOY LUND APRN 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 02/04/2012 BOY LUND APRN 709.9 SKIN LESION [SX] 02/04/2012 BOY LUND APRN 728.85 SPASM OF MUSCLE 02/04/2012 BYO LUND APRN 728.87 Muscle Weakness (generalized) 02/04/2012 BOY LUND APRN 786.07 Wheezing 02/04/2012 SALGUERO DO PHILIPPE K 276.8 HYPOPOTASSEMIA 02/04/2012 NOEMY DO PHILIPPE K 311 DEPRESSIVE DISORDER NOT ELSEWHERE CLASSIFIED 02/04/2012 NOEMY DO PHILIPPE K 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 02/04/2012 SALGUERO DO PHILIPPE K 709.9 SKIN LESION [SX] 02/04/2012 NOEMY DO PHILIPPE K 728.85 SPASM OF MUSCLE [...] DO, PHILIPPE K 496 COPD 02/24/2012 ASHELY WHITE LEAD GRINDER, BOY J 496 COPD 02/24/2012 WHITE DDS, DEEDEE J 496 COPD 02/24/2012 WHITE DDS, DEEDEE J 496 COPD 02/24/2012 SALGUERO DO, PHILIPPE K 496 COPD 02/24/2012 ASHELY WHITE LEAD GRINDER, BOY J 496 COPD 02/24/2012 ASHELY WHITE LEAD GRINDER, BOY J 496 COPD 02/24/2012 ASHELY WHITE LEAD GRINDER, BOY J 496 COPD 02/24/2012 ASHELY WHITE LEAD GRINDER, BOY J 496 COPD 02/24/2012 SALGUERO DO, PHILIPPE K 496 COPD 02/24/2012 SALGUERO DO, PHILIPPE K 496 COPD 02/24/2012 ASHELY WHITE LEAD GRINDER, BOY J 496 COPD 02/24/2012 ASHELY WHITE LEAD GRINDER, BOY J 496 COPD 02/24/2012 ASHELY WHITE LEAD GRINDER, BOY J 496 COPD 02/24/2012 SALGUERO DO, PHILIPPE K 496 COPD 02/24/2012 ASHELY WHITE LEAD GRINDER, BOY J 496 COPD 02/24/2012 IVET [facility], JACKIE R 496 COPD 02/24/2012 SALGUERO DO, PHILIPPE K 496 COPD 02/24/2012 SALGUERO DO, PHILIPPE K 496 COPD 02/24/2012 EVELIN WINTER APRNIDI Román 496 COPD 02/24/2012 SALGUERO DO, PHILIPPE K 496 COPD 02/24/2012 ASHELY WHITE LEAD GRINDER, BOY J 496 COPD 02/24/2012 SALGUERO DO, [...] DEEDEE J 799.81 DECREASED LIBIDO 03/08/2012 ASHELY WHITE LEAD GRINDER, BOY J 799.81 DECREASED LIBIDO 03/08/2012 SALGUERO DO, PHILIPPE K 799.81 DECREASED LIBIDO 03/08/2012 SALGUERO DO, PHILIPPE K 799.81 DECREASED LIBIDO 03/08/2012 ASHELY WHITE LEAD GRINDER, BOY J 799.81 DECREASED LIBIDO 03/08/2012 WHITE DDS, DEEDEE J 799.81 DECREASED LIBIDO 03/08/2012 WHITE DDS, DEEDEE J 799.81 DECREASED LIBIDO 03/08/2012 SALGUERO DO, PHILIPPE K 799.81 DECREASED LIBIDO 03/08/2012 ASHELY WHITE LEAD GRINDER, BOY J 799.81 DECREASED LIBIDO 03/08/2012 ASHELY WHITE LEAD GRINDER, BOY J 799.81 DECREASED LIBIDO 03/08/2012 ASHELY WHITE LEAD GRINDER, BOY J 799.81 DECREASED LIBIDO 03/08/2012 ASHELY WHITE LEAD GRINDER, BOY J 799.81 DECREASED LIBIDO 03/08/2012 SALGUERO DO, PHILIPPE K 799.81 DECREASED LIBIDO 03/08/2012 SALGUERO DO, PHILIPPE K 799.81 DECREASED LIBIDO 03/08/2012 ASHELY WHITE LEAD GRINDER, BOY J 799.81 DECREASED LIBIDO 03/08/2012 ASHELY WHITE LEAD GRINDER, BOY J 799.81 DECREASED LIBIDO 03/08/2012 ASHELY WHITE LEAD GRINDER, BOY J 799.81 DECREASED LIBIDO 03/08/2012 SALGUERO DO, PHILIPPE K 799.81 DECREASED LIBIDO 03/08/2012 ASHELY WHITE LEAD GRINDER, BOY J 799.81 DECREASED LIBIDO 03/08/2012 IVET [facility], JACKIE Eastman 799.81 DECREASED LIBIDO 03/08/2012 SALGUERO DO, PHILIPPE K 799.81 DECREASED LIBIDO 03/08/2012 SALGUERO DO, PHILIPPE K 799.81 DECREASED LIBIDO 03/08/2012 CHRIS WINTER APRN 799.81 DECREASED LIBIDO 03/08/2012 SALGUERO DO, PHILIPPE K 799.81 DECREASED LIBIDO 03/08/2012 ASHELY WHITE LEAD GRINDER, BOY J 799.81 DECREASED LIBIDO 03/08/2012 SALGUERO [...] J 788.30 URINARY INCONTINENCE UNSPECIFIED 04/29/2012 ASHELY SPANGLERN, [...] 788.30 URINARY INCONTINENCE UNSPECIFIED 04/29/2012 WHITE DDS, DEDEEE J 782.0 DISTURBANCE OF SKIN SENSATION 04/29/2012 WHITE DDS, DEEDEE J 788.30 URINARY INCONTINENCE UNSPECIFIED 04/29/2012 SALGUERO DO, PHILIPPE K 782.0 DISTURBANCE OF SKIN SENSATION 04/29/2012 SALGUERO DO, PHILIPPE K 788.30 URINARY INCONTINENCE UNSPECIFIED 04/29/2012 ASHELY WHITE LEAD GRINDER, BOY J 782.0 DISTURBANCE OF SKIN SENSATION 04/29/2012 ASHELY WHITE LEAD GRINDER, BOY J 788.30 URINARY INCONTINENCE UNSPECIFIED 04/29/2012 ASHELY WHITE LEAD GRINDER, BOY J 782.0 DISTURBANCE OF SKIN SENSATION 04/29/2012 ASHELY SPANGLERN, BOY J 788.30 URINARY INCONTINENCE UNSPECIFIED 04/29/2012 ASHELY WHITE LEAD GRINDER, BOY J 782.0 DISTURBANCE OF SKIN SENSATION 04/29/2012 ASHELY WHITE LEAD GRINDER, BOY J 788.30 URINARY INCONTINENCE UNSPECIFIED 04/29/2012 ASHELY WHITE LEAD GRINDER, BOY J 782.0 DISTURBANCE OF SKIN SENSATION 04/29/2012 ASHELY WHITE LEAD GRINDER, BOY J 788.30 URINARY INCONTINENCE UNSPECIFIED 04/29/2012 SALGUERO DO, PHILIPPE K 782.0 DISTURBANCE OF SKIN SENSATION 04/29/2012 SALGUERO DO, PHILIPPE K 788.30 URINARY INCONTINENCE UNSPECIFIED 04/29/2012 SALGUERO DO, PHILIPPE K 782.0 DISTURBANCE OF SKIN SENSATION 04/29/2012 SALGUERO DO, PHILIPPE K 788.30 URINARY INCONTINENCE UNSPECIFIED 04/29/2012 ASHELY WHITE LEAD GRINDER, BOY J 782.0 DISTURBANCE OF SKIN SENSATION 04/29/2012 ASHELY WHITE LEAD GRINDER, BOY J 788.30 URINARY INCONTINENCE UNSPECIFIED 04/29/2012 ASHELY VASQUES, BOY J 782.0 DISTURBANCE OF SKIN SENSATION 04/29/2012 ASHELY SPANGLERN, BOY J 788.30 URINARY INCONTINENCE UNSPECIFIED 04/29/2012 ASHELY WHITE LEAD GRINDER, BOY J 782.0 DISTURBANCE OF SKIN SENSATION 04/29/2012 ASHELY WHITE LEAD GRINDER, BOY J 788.30 URINARY INCONTINENCE UNSPECIFIED 04/29/2012 SALGUERO DO, PHILIPPE K 782.0 DISTURBANCE OF SKIN SENSATION 04/29/2012 SALGUERO DO, PHILIPPE K 788.30 URINARY INCONTINENCE UNSPECIFIED 04/29/2012 ASHELY WHITE LEAD GRINDER, BOY J 782.0 DISTURBANCE OF SKIN SENSATION 04/29/2012 ASHELY SPANGLERN, BOY J 788.30 URINARY INCONTINENCE UNSPECIFIED 04/29/2012 [facility], JACKIE R 782.0 DISTURBANCE OF SKIN SENSATION 04/29/2012 [facility], JACKIE R 788.30 URINARY INCONTINENCE UNSPECIFIED 04/29/2012 SALGUERO DO, PHILIPPE K 782.0 DISTURBANCE OF SKIN SENSATION 04/29/2012 SALGUERO DO, PHILIPPE K 788.30 URINARY INCONTINENCE UNSPECIFIED 04/29/2012 SALGUERO DO, PHILIPPE K 782.0 DISTURBANCE OF SKIN SENSATION 04/29/2012 SALGUERO DO, PHILIPPE K 788.30 URINARY INCONTINENCE UNSPECIFIED 04/29/2012 MOY WHITE LEAD GRINDER, CHRIS A 782.0 DISTURBANCE OF SKIN SENSATION 04/29/2012 MOY VASQUES, CHRIS A 788.30 URINARY INCONTINENCE UNSPECIFIED 04/29/2012 SALGUERO [...] IN JOINT INVOLVING ANKLE AND FOOT 05/27/2012 JUAREZ LUND APRNA J 719.47 PAIN IN JOINT INVOLVING ANKLE AND [...] IN JOINT INVOLVING ANKLE AND FOOT 05/27/2012 JACKIE PACHECO 719.47 PAIN IN JOINT INVOLVING ANKLE AND FOOT 05/27/2012 PHILIPPE SALGUERO DO 719.47 PAIN IN JOINT INVOLVING ANKLE AND FOOT 05/27/2012 PHILIPPE SALGUERO DO 719.47 PAIN IN JOINT INVOLVING ANKLE AND FOOT 05/27/2012 CHRIS WINTER APRN 719.47 PAIN IN JOINT INVOLVING ANKLE AND FOOT 05/27/2012 PHILIPPE SALGUERO DO 719.47 PAIN IN JOINT INVOLVING ANKLE AND FOOT 05/27/2012 BOY LNUD APRN 719.47 PAIN IN JOINT INVOLVING ANKLE AND FOOT 05/27/2012 PHILIPPE SALGUERO DO 719.47 PAIN IN JOINT INVOLVING ANKLE AND FOOT 07/04/2012 PHILIPPE SALGUERO DO 354.0 CARPAL TUNNEL SYNDROME 07/04/2012 PHILIPPE SALUGERO DO 368.8 blurry vision 07/04/2012 PHILIPPE SALGUERO [...] LUND APRN J 368.8 BLURRY VISION 07/04/2012 JUAREZ LUND APRNA J 719.40 ARTHRALGIA 07/04/2012 SALGUERO DO PHILIPPE K 354.0 CARPAL TUNNEL SYNDROME 07/04/2012 SALGUERO DO PHILIPPE K 368.8 BLURRY VISION 07/04/2012 SALGUERO DO, PHILIPPE K 719.40 ARTHRALGIA 07/04/2012 SALGUERO DO, PHILIPPE K 354.0 CARPAL TUNNEL SYNDROME 07/04/2012 SALGUERO DO, PHILIPPE K 368.8 BLURRY VISION 07/04/2012 SALGUERO DO PHILIPPE K 719.40 ARTHRALGIA 07/04/2012 ASHELY VSAQUES BOY J 354.0 CARPAL TUNNEL SYNDROME 07/04/2012 JUAREZ LUND APRNA J 368.8 BLURRY VISION 07/04/2012 ASHELY WHITE LEAD GRINDER, BOY J 719.40 ARTHRALGIA 07/04/2012 WHITE DDS, [...] DO, PHILIPPE K 719.40 ARTHRALGIA 07/04/2012 ASHELY WHITE LEAD GRINDER, BOY J 354.0 CARPAL TUNNEL SYNDROME 07/04/2012 ASHELY VASQUES, BOY J 368.8 BLURRY VISION 07/04/2012 ASHELY CAPRICE, BOY J 719.40 ARTHRALGIA 07/04/2012 ASHELY WHITE LEAD GRINDER, BOY J 354.0 CARPAL TUNNEL SYNDROME 07/04/2012 ASHELY WHITE LEAD GRINDER, BOY J 368.8 BLURRY VISION 07/04/2012 ASHELY WHITE LEAD GRINDER, BOY J 719.40 ARTHRALGIA 07/04/2012 ASHELY WHITE LEAD GRINDER, BOY J 354.0 CARPAL TUNNEL SYNDROME 07/04/2012 ASHELY WHITE LEAD GRINDER, BOY J 368.8 BLURRY VISION 07/04/2012 ASHELY WHITE LEAD GRINDER, BOY J 719.40 ARTHRALGIA 07/04/2012 ASHELY WHITE LEAD GRINDER, BOY J 354.0 CARPAL TUNNEL SYNDROME 07/04/2012 ASHELY WHITE LEAD GRINDER, BOY J 368.8 BLURRY VISION 07/04/2012 ASHELY WHITE LEAD GRINDER, BOY J 719.40 ARTHRALGIA 07/04/2012 SALGUERO DO PHILIPPE K 354.0 CARPAL TUNNEL SYNDROME 07/04/2012 SALGUERO DO, PHILIPPE K 368.8 BLURRY VISION 07/04/2012 SALGUERO DO, PHILIPPE K 719.40 ARTHRALGIA 07/04/2012 SALGUERO DO PHILIPPE K 354.0 CARPAL TUNNEL SYNDROME 07/04/2012 SALGUERO DO, PHILIPPE K 368.8 BLURRY VISION 07/04/2012 SALGUERO DO, PHILIPPE K 719.40 ARTHRALGIA 07/04/2012 JUAREZ LUND APRNA J 354.0 CARPAL TUNNEL SYNDROME 07/04/2012 BECKY LUND APRNINDA J 368.8 BLURRY VISION 07/04/2012 BECKY LUND APRNINDA J 719.40 ARTHRALGIA 07/04/2012 JUAREZ LUND APRNA J 354.0 CARPAL TUNNEL SYNDROME 07/04/2012 JUAREZ LUND APRNA J 368.8 BLURRY VISION 07/04/2012 BECKY LUND APRNINDA J 719.40 ARTHRALGIA 07/04/2012 JUAREZ LUND APRNA J 354.0 CARPAL TUNNEL SYNDROME 07/04/2012 JUAREZ LUND APRNA J 368.8 BLURRY VISION 07/04/2012 JUAREZ LUND APRNA J 719.40 ARTHRALGIA 07/04/2012 SALGUERO DO PHILIPPE K 354.0 CARPAL TUNNEL SYNDROME 07/04/2012 SALGUERO DO PHILIPPE K 368.8 BLURRY VISION 07/04/2012 SALGUERO DO PHILIPPE K 719.40 ARTHRALGIA 07/04/2012 JUAREZ LUND APRNA J 354.0 CARPAL TUNNEL SYNDROME 07/04/2012 JUAREZ LUND APRNA J 368.8 BLURRY VISION 07/04/2012 BECKY LUND APRNINDA J 719.40 ARTHRALGIA 07/04/2012 [facility], JACKIE R 354.0 CARPAL TUNNEL SYNDROME 07/04/2012 [facility], JACKIE R 368.8 BLURRY VISION 07/04/2012 [facility], JACKIE R 719.40 ARTHRALGIA 07/04/2012 SALGUERO DO, PHILIPPE K 354.0 CARPAL TUNNEL SYNDROME 07/04/2012 SALGUERO DO, PHILIPPE K 368.8 BLURRY VISION 07/04/2012 SALGUERO DO, PHILIPPE K 719.40 ARTHRALGIA 07/04/2012 SALGUERO DO, PHILIPPE K 354.0 CARPAL TUNNEL SYNDROME 07/04/2012 SALGUERO DO, PHILIPPE K 368.8 BLURRY VISION 07/04/2012 SALGUERO DO, PHILIPPE K 719.40 ARTHRALGIA 07/04/2012 CHRIS WINTER APRN 354.0 CARPAL TUNNEL SYNDROME 07/04/2012 MOY WHITE LEAD GRINDER, CHRIS A 368.8 BLURRY VISION 07/04/2012 MOY WHITE LEAD GRINDER, CHRIS A 719.40 ARTHRALGIA 07/04/2012 SALGUERO DO, PHILIPPE K 354.0 CARPAL TUNNEL SYNDROME 07/04/2012 SALGUERO DO, PHILIPPE K 368.8 BLURRY VISION 07/04/2012 SALGUERO DO, PHILIPPE K 719.40 ARTHRALGIA 07/04/2012 ASHELY WHITE LEAD GRINDER, BOY J 354.0 CARPAL TUNNEL SYNDROME 07/04/2012 ASHELY WHITE LEAD GRINDER, BOY J 368.8 BLURRY VISION 07/04/2012 ASHELY WHITE LEAD GRINDER, BOY J 719.40 ARTHRALGIA 07/04/2012 SALGUERO DO, [...] CELLULITIS AND ABSCESS OF UNSPECIFIED SITES 09/07/2012 ASLGUERO DO, PHILIPPE K 682.9 CELLULITIS AND ABSCESS [...] AND ABSCESS OF UNSPECIFIED SITES 09/07/2012 ASHELY WHITE LEAD GRINDER, BOY J 682.9 CELLULITIS AND ABSCESS OF UNSPECIFIED SITES 09/07/2012 SALGUERO DO, PHILIPPE K 682.9 CELLULITIS AND ABSCESS OF UNSPECIFIED SITES 09/07/2012 SALGUERO DO, PHILIPPE K 682.9 CELLULITIS AND ABSCESS OF UNSPECIFIED SITES 09/07/2012 ASHELY WHITE LEAD GRINDER, BOY J 682.9 CELLULITIS AND ABSCESS OF UNSPECIFIED SITES 09/07/2012 WHITE DDS, DEEDEE J 682.9 CELLULITIS AND ABSCESS OF UNSPECIFIED SITES 09/07/2012 WHITE DDS, DEEDEE J 682.9 CELLULITIS AND ABSCESS OF UNSPECIFIED SITES 09/07/2012 SALGUERO DO, PHILIPPE K 682.9 CELLULITIS AND ABSCESS OF UNSPECIFIED SITES 09/07/2012 ASHELY WHITE LEAD GRINDER, BOY J 682.9 CELLULITIS AND ABSCESS OF UNSPECIFIED SITES 09/07/2012 ASHELY WHITE LEAD GRINDER, BOY J 682.9 CELLULITIS AND ABSCESS OF UNSPECIFIED SITES 09/07/2012 ASHELY WHITE LEAD GRINDER, BOY J 682.9 CELLULITIS AND ABSCESS OF UNSPECIFIED SITES 09/07/2012 ASHELY WHITE LEAD GRINDER, BOY J 682.9 CELLULITIS AND ABSCESS OF UNSPECIFIED SITES 09/07/2012 SALGUERO DO, PHILIPPE K 682.9 CELLULITIS AND ABSCESS OF UNSPECIFIED SITES 09/07/2012 SAGLUERO DO, PHILIPPE K 682.9 CELLULITIS AND ABSCESS OF UNSPECIFIED SITES 09/07/2012 ASHELY WHITE LEAD GRINDER, BOY J 682.9 CELLULITIS AND ABSCESS OF UNSPECIFIED SITES 09/07/2012 ASHELY WHITE LEAD GRINDER, BOY J 682.9 CELLULITIS AND ABSCESS OF UNSPECIFIED SITES 09/07/2012 ASHELY WHITE LEAD GRINDER, BOY J 682.9 CELLULITIS AND ABSCESS OF UNSPECIFIED SITES 09/07/2012 SALGUERO DOTANISHAA K 682.9 CELLULITIS AND ABSCESS OF UNSPECIFIED SITES 09/07/2012 BOY LUND APRN 682.9 CELLULITIS AND ABSCESS OF UNSPECIFIED SITES 09/07/2012 IVET BARON, JACKIE Eastman 682.9 CELLULITIS AND ABSCESS OF UNSPECIFIED SITES 09/07/2012 SALGUERO DO PHILIPPE K 682.9 CELLULITIS AND ABSCESS OF UNSPECIFIED SITES 09/07/2012 SALGUERO DO PHILIPPE K 682.9 CELLULITIS AND ABSCESS OF [...] SALGUERO DOA K 692.71 SUNBURN 10/06/2012 SALGUERO TANISHA OLVERAA [...] SALGUERO TANISHA OLVERAA K 692.71 SUNBURN 10/06/2012 PHILIPPE SALGUERO DO K 709.2 SCAR CONDITIONS AND FIBROSIS OF SKIN 10/06/2012 WHITE DDS, DEEDEE J 692.71 SUNBURN 10/06/2012 WHITE DDS, DEEDEE J 709.2 SCAR CONDITIONS AND FIBROSIS OF SKIN 10/06/2012 MAEVE NARAYANAN PA-C 692.71 SUNBURN 10/06/2012 MAEVE NARAYANAN PA-C M 709.2 SCAR CONDITIONS AND FIBROSIS OF SKIN 10/06/2012 SALGUERO TANISHA OLVERAA K 692.71 SUNBURN 10/06/2012 PHILIPPE SALGUERO DO [...] CONDITIONS AND FIBROSIS OF SKIN 10/06/2012 ASHELY WHITE LEAD GRINDER, BOY J 692.71 SUNBURN 10/06/2012 ASHELY WHITE LEAD GRINDER, BOY J 709.2 SCAR CONDITIONS AND FIBROSIS OF SKIN 10/06/2012 ASHELY WHITE LEAD GRINDER, BOY J 692.71 SUNBURN 10/06/2012 ASHELY WHITE LEAD GRINDER, BOY J 709.2 SCAR CONDITIONS AND FIBROSIS OF SKIN 10/06/2012 ASHELY VASQUES, BOY J 692.71 SUNBURN 10/06/2012 ASHELY VASQUES, BOY J 709.2 SCAR CONDITIONS AND FIBROSIS OF SKIN 10/06/2012 ASHELY WHITE LEAD GRINDER, BOY J 692.71 SUNBURN 10/06/2012 ASHELY WHITE LEAD GRINDER, BOY J 709.2 SCAR CONDITIONS AND FIBROSIS OF SKIN 10/06/2012 PHILIPPE SALGUERO DO K 692.71 SUNBURN 10/06/2012 PHILIPPE SALGUERO DO K 709.2 SCAR CONDITIONS AND FIBROSIS OF SKIN 10/06/2012 PHILIPPE SALGUERO DO K 692.71 SUNBURN 10/06/2012 PHILIPPE SALGUERO DO K 709.2 SCAR CONDITIONS AND FIBROSIS OF SKIN 10/06/2012 ASHELY WHITE LEAD GRINDER, BOY J 692.71 SUNBURN 10/06/2012 ASHELY WHITE LEAD GRINDER, BOY J 709.2 SCAR CONDITIONS AND FIBROSIS OF SKIN 10/06/2012 ASHELY WHITE LEAD GRINDER, BOY J 692.71 SUNBURN 10/06/2012 ASHELY WHITE LEAD GRINDER, BOY J 709.2 SCAR CONDITIONS AND FIBROSIS OF SKIN 10/06/2012 ASHELY WHITE LEAD GRINDER, BOY J 692.71 SUNBURN 10/06/2012 ASHELY VASQUES, BYO J 709.2 SCAR CONDITIONS AND FIBROSIS OF SKIN 10/06/2012 PHILIPPE SALGUERO DO K 692.71 SUNBURN 10/06/2012 PHILIPPE SALGUERO DO K 709.2 SCAR CONDITIONS AND FIBROSIS OF SKIN 10/06/2012 BOY LUND APRN J 692.71 SUNBURN 10/06/2012 BOY LUND APRN J 709.2 SCAR CONDITIONS AND FIBROSIS OF SKIN 10/06/2012 [facility], JACKIE R 692.71 SUNBURN 10/06/2012 [facility], JACKIE R 709.2 SCAR CONDITIONS AND FIBROSIS [...] PHILIPPE SALGUERO DO K 692.71 SUNBURN 10/06/2012 TANISHA SALGUERO DOA K 709.2 SCAR CONDITIONS AND FIBROSIS OF SKIN 10/06/2012 BOY LUND APRN J 692.71 SUNBURN 10/06/2012 BOY LUND APRN [...] BLEEDING FROM FEMALE GENITAL TRACT 12/08/2012 SALGUERO DOTANISHAA K 626.9 UNSPECIFIED DISORDERS OF MENSTRUATION AND OTHER ABNORMAL BLEEDING FROM FEMALE GENITAL TRACT 12/08/2012 HAN DEL VALLESDEEDEE J 626.9 UNSPECIFIED DISORDERS OF MENSTRUATION AND OTHER ABNORMAL BLEEDING FROM FEMALE GENITAL TRACT 12/08/2012 ASHELY VASQUES, BOY J 626.9 UNSPECIFIED DISORDERS OF MENSTRUATION AND OTHER ABNORMAL BLEEDING FROM FEMALE GENITAL TRACT 12/08/2012 SALGUERO DOTANISHAA K 626.9 UNSPECIFIED DISORDERS OF MENSTRUATION AND OTHER ABNORMAL BLEEDING FROM FEMALE GENITAL TRACT 12/08/2012 TANISHA SALGUERO DOA K 626.9 UNSPECIFIED DISORDERS OF MENSTRUATION AND OTHER ABNORMAL BLEEDING FROM FEMALE GENITAL TRACT 12/08/2012 ASHELY SPANGLERN, BOY J 626.9 UNSPECIFIED DISORDERS OF MENSTRUATION AND OTHER ABNORMAL BLEEDING FROM FEMALE GENITAL TRACT 12/08/2012 HAN DEL VALLESDEEDEE J 626.9 UNSPECIFIED DISORDERS OF MENSTRUATION AND OTHER ABNORMAL BLEEDING FROM FEMALE GENITAL TRACT 12/08/2012 HAN EDL VALLESDEEDEE J 626.9 UNSPECIFIED DISORDERS OF MENSTRUATION AND OTHER ABNORMAL BLEEDING FROM FEMALE GENITAL TRACT 12/08/2012 SALGUERO TANISHA OLVERAA K 626.9 UNSPECIFIED DISORDERS OF MENSTRUATION AND [...] BLEEDING FROM FEMALE GENITAL TRACT 12/08/2012 [facility], JACKIE R 626.9 UNSPECIFIED DISORDERS OF MENSTRUATION [...] DEEDEE J V04.81 FLU SHOT 01/11/2013 ASHELY WHITE LEAD GRINDER, BOY J V04.81 FLU SHOT 01/11/2013 SALGUERO DO, PHILIPPE K V04.81 FLU SHOT 01/11/2013 SALGUERO DO, PHILIPPE K V04.81 FLU SHOT 01/11/2013 ASHELY WHITE LEAD GRINDER, BOY J V04.81 FLU SHOT 01/11/2013 WHITE DDS, DEEDEE J V04.81 FLU SHOT 01/11/2013 WHITE DDS, DEEDEE J V04.81 FLU SHOT 01/11/2013 SALGUERO DO, PHILIPPE K V04.81 FLU SHOT 01/11/2013 ASHELY WHITE LEAD GRINDER, BOY J V04.81 FLU SHOT 01/11/2013 ASHELY WHITE LEAD GRINDER, BOY J V04.81 FLU SHOT 01/11/2013 ASHELY WHITE LEAD GRINDER, BOY J V04.81 FLU SHOT 01/11/2013 ASHELY WHITE LEAD GRINDER, BOY J V04.81 FLU SHOT 01/11/2013 SALGUERO DO, PHILIPPE K V04.81 FLU SHOT 01/11/2013 SALGUERO DO, PHILIPPE K V04.81 FLU SHOT 01/11/2013 ASHELY WHITE LEAD GRINDER, BOY J V04.81 FLU SHOT 01/11/2013 ASHELY WHITE LEAD GRINDER, BOY J V04.81 FLU SHOT 01/11/2013 ASHELY WHITE LEAD GRINDER, BOY J V04.81 FLU SHOT 01/11/2013 SALGUERO DO, PHILIPPE K V04.81 FLU SHOT 01/11/2013 ASHELY WHITE LEAD GRINDER, BOY J V04.81 FLU SHOT 01/11/2013 [facility], JACKIE R V04.81 FLU SHOT 01/11/2013 SALGUERO DO, PHILIPPE K V04.81 FLU SHOT 01/11/2013 SALGUERO DO, PHILIPPE K V04.81 FLU SHOT 01/11/2013 CHRIS WINTRE APRN A V04.81 FLU SHOT 01/11/2013 SALGUERO DO, PHILIPPE K V04.81 FLU SHOT 01/11/2013 ASHELY WHITE LEAD GRINDER, BOY J V04.81 FLU SHOT 01/11/2013 SALGUERO [...] DO, PHILIPPE K 799.02 HYPOXEMIA 01/27/2013 WHITE DDSDEEDEE 799.02 HYPOXEMIA 01/27/2013 MAEVE NARAYANAN PA-C 799.02 HYPOXEMIA 01/27/2013 SALGUERO DO, PHILIPPE K 799.02 HYPOXEMIA 01/27/2013 WHITE IVONS, DEEDEE [place] 799.02 HYPOXEMIA 01/27/2013 BOY LUND APRN 799.02 HYPOXEMIA 01/27/2013 SALGUERO DO, PHILIPPE K 799.02 HYPOXEMIA 01/27/2013 SALGUERO DO, PHILIPPE K 799.02 HYPOXEMIA 01/27/2013 BOY LUND APRN 799.02 HYPOXEMIA 01/27/2013 WHITE DDS, DEEDEE [place] 799.02 HYPOXEMIA 01/27/2013 WHITE DDS, DEEDEE [place] 799.02 HYPOXEMIA 01/27/2013 SALGUERO DO, PHILIPPE K 799.02 HYPOXEMIA 01/27/2013 ASHELY WHITE LEAD GRINDER, BOY J 799.02 HYPOXEMIA 01/27/2013 ASHELY WHITE LEAD GRINDER, BOY J 799.02 HYPOXEMIA 01/27/2013 ASHELY WHITE LEAD GRINDER, BOY J 799.02 HYPOXEMIA 01/27/2013 ASHELY WHITE LEAD GRINDER, BOY J 799.02 HYPOXEMIA 01/27/2013 SALGUERO DO, PHILIPPE K 799.02 HYPOXEMIA 01/27/2013 SALGUERO DO, PHILIPPE K 799.02 HYPOXEMIA 01/27/2013 ASHELY WHITE LEAD GRINDER, BOY J 799.02 HYPOXEMIA 01/27/2013 ASHELY WHITE LEAD GRINDER, BOY J 799.02 HYPOXEMIA 01/27/2013 ASHELY WHITE LEAD GRINDER, BOY J 799.02 HYPOXEMIA 01/27/2013 SALGUERO DO, PHILIPPE K 799.02 HYPOXEMIA 01/27/2013 ASHELY WHITE LEAD GRINDER, BOY J 799.02 HYPOXEMIA 01/27/2013 [facility], JACKIE R 799.02 HYPOXEMIA 01/27/2013 SALGUERO DO, PHILIPPE K 799.02 HYPOXEMIA 01/27/2013 SALGUERO DO, PHILIPPE K 799.02 HYPOXEMIA 01/27/2013 CHRIS WINTER APRN 799.02 HYPOXEMIA 01/27/2013 SALGUERO DO, PHILIPPE K 799.02 HYPOXEMIA 01/27/2013 ASHELY WHITE LEAD GRINDER, BOY J 799.02 HYPOXEMIA 01/27/2013 SALGUERO DO, PHILIPPE K 799.02 HYPOXEMIA 04/07/2013 SALGUERO DO, PHILIPPE K 780.52 INSOMNIA UNSPECIFIED 04/07/2013 SALGUERO DO, PHILIPPE K 780.52 INSOMNIA UNSPECIFIED 04/07/2013 SALGUERO DO, PHILIPPE K 780.52 INSOMNIA UNSPECIFIED 04/07/2013 SALGUERO DO, PHILIPPE K 780.52 INSOMNIA UNSPECIFIED 04/07/2013 SALGUERO DO, PHILIPPE K 780.52 INSOMNIA UNSPECIFIED 04/07/2013 HAN DDSDEEDEE 780.52 INSOMNIA UNSPECIFIED 04/07/2013 MAEVE NARAYANAN PA-C 780.52 INSOMNIA UNSPECIFIED 04/07/2013 SALGUERO DO, PHILIPPE K 780.52 INSOMNIA UNSPECIFIED 04/07/2013 WHITE DDSDEEDEE 780.52 INSOMNIA UNSPECIFIED 04/07/2013 ASHELY WHITE LEAD GRINDER, BOY J 780.52 INSOMNIA UNSPECIFIED 04/07/2013 SALGUERO DO, PHILIPPE K 780.52 INSOMNIA UNSPECIFIED 04/07/2013 SALGUERO DO, PHILIPPE K 780.52 INSOMNIA UNSPECIFIED 04/07/2013 ASHELY WHITE LEAD GRINDER, BOY J 780.52 INSOMNIA UNSPECIFIED 04/07/2013 WHITE DDS, DEEDEE J 780.52 INSOMNIA UNSPECIFIED 04/07/2013 WHITE DDS, DEEDEE J 780.52 INSOMNIA UNSPECIFIED 04/07/2013 SALGUERO DO, PHILIPPE K 780.52 INSOMNIA UNSPECIFIED 04/07/2013 ASHELY WHITE LEAD GRINDER, BOY J 780.52 INSOMNIA UNSPECIFIED 04/07/2013 ASHELY WHITE LEAD GRINDER, BOY J 780.52 INSOMNIA UNSPECIFIED 04/07/2013 ASHELY WHITE LEAD GRINDER, BOY J 780.52 INSOMNIA UNSPECIFIED 04/07/2013 ASHELY WHITE LEAD GRINDER, BOY J 780.52 INSOMNIA UNSPECIFIED 04/07/2013 SALGUERO DO, PHILIPPE K 780.52 INSOMNIA UNSPECIFIED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 DO, MYNOR C Ot V74.8 06/29/2015 MAGALLANES DO, MYNOR C Ot 626.9 06/29/2015 MAGALLANES DO, MYNOR C Ot V72.84 06/29/2015 MAGALLANES DO, MYNOR C Ot 789.00 06/29/2015 ELIZABETH LEYVA WHITE LEAD GRINDER Ot N63 06/29/2015 SOFIA CASTRO, ANJUM Hanna Ot C50.412 06/29/2015 SOFIA CASTRO, ANJUM Hanna Ot E66.01 06/29/2015 SOFIA CASTRO, ANJUM Hanna Ot E78.5 06/29/2015 SOFIA CASTRO, ANJUM Hanna Ot F31.9 06/29/2015 SOFIA CASTRO, ANJUM Hanna Ot I10 06/29/2015 SOFIA CASTRO, ANJUM Hanna Ot J44.9 06/29/2015 SOFIA CASTRO, ANJUM Hanna Ot K21.9 06/29/2015 SOFIA CASTRO, ANJUM Hanna Ot Z68.41 06/29/2015 SOFIA CASTRO, ANJUM Hanna Ot Z79.899 06/29/2015 BEN CASTRO, LIZZIE [place] Ot N32.81 06/29/2015 BEN CASTRO, LIZZIE Farnce Ot N39.46 06/29/2015 BEN CASTRO, LIZZIE A Ot Z01.818 06/29/2015 BEN CASTRO, LIZZIE [place] Ot Z11.2 06/29/2015 SOFIA CASTRO, ANJUM Ferreira [...] MAEVE Gamez Ot Z90.12 07/24/2015 CODY DIEZ WOODWORKING MACHINE SETTER Ot C50.412 07/24/2015 CODY DIEZ WOODWORKING MACHINE SETTER Ot E66.01 07/24/2015 CODY DIEZ WOODWORKING MACHINE SETTER Ot E78.5 07/24/2015 CODY DIEZ WOODWORKING MACHINE SETTER Ot F31.9 07/24/2015 CODY DIEZ WOODWORKING MACHINE SETTER Ot I10 07/24/2015 CODY DIEZ WOODWORKING MACHINE SETTER Ot J44.9 07/24/2015 CODY DIEZ WOODWORKING MACHINE SETTER Ot K21.9 07/24/2015 CODY DIEZ WOODWORKING MACHINE SETTER Ot Z17.0 07/24/2015 CODY DIEZ WOODWORKING MACHINE SETTER Ot Z68.41 07/24/2015 CODY DIEZ WOODWORKING MACHINE SETTER Ot Z79.899 07/30/2015 JERRICA GRANADO MD Ot C50.912 MALIGNANT NEOPLASM OF UNSPECIFIED SITE O 07/30/2015 JERRICA GRANADO MD Ot Z01.818 ENCOUNTER FOR OTHER PREPROCEDURAL EXAMIN 08/01/2015 JERRICA GRANADO MD Ot C50.912 MALIGNANT NEOPLASM OF UNSPECIFIED SITE O 08/01/2015 JERRICA GRANADO MD Ot Z90.12 ACQUIRED ABSENCE OF LEFT BREAST AND NIPP 08/07/2015 ANJUM BLACK MD Ot 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 08/07/2015 ANJUM BLACK MD Ot E66.01 MORBID (SEVERE) OBESITY DUE TO EXCESS CA 08/07/2015 ANJUM BLACK MD Ot E78.5 HYPERLIPIDEMIA, UNSPECIFIED 08/07/2015 ANJUM BLACK MD Ot F31.9 BIPOLAR DISORDER, UNSPECIFIED 08/07/2015 ANJUM BLACK MD Ot I10 ESSENTIAL (PRIMARY) HYPERTENSION 08/07/2015 ANJUM BLACK MD Ot J44.9 CHRONIC OBSTRUCTIVE PULMONARY DISEASE, U 08/07/2015 ANJUM BLACK MD Ot K21.9 GASTRO-ESOPHAGEAL REFLUX DISEASE WITHOUT 08/07/2015 ANJUM BLACK MD Ot Z68.41 BODY MASS INDEX (BMI) 40.0-44.9, ADULT 08/07/2015 ANJUM BLACK MD Ot Z79.899 OTHER RAILCAR CARPENTER (CURRENT) DRUG THERAPY 08/09/2015 JERRICA GRANADO MD Ot C50.912 MALIGNANT NEOPLASM OF UNSPECIFIED SITE O 08/09/2015 JERRICA GRANADO MD Ot I10 ESSENTIAL (PRIMARY) HYPERTENSION 08/09/2015 JERRICA GRANADO MD Ot Z79.899 OTHER RAILCAR CARPENTER (CURRENT) DRUG THERAPY 08/12/2015 ANJUM BLACK MD Ot 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 08/12/2015 ANJUM BLACK MD Ot E66.01 MORBID (SEVERE) OBESITY DUE TO EXCESS CA 08/12/2015 ANJUM BLACK MD Ot E78.5 HYPERLIPIDEMIA, UNSPECIFIED 08/12/2015 ANJUM BLACK MD, Ot F31.9 BIPOLAR DISORDER, UNSPECIFIED 08/12/2015 ANJUM BLACK MD Ot I10 ESSENTIAL (PRIMARY) HYPERTENSION 08/12/2015 ANJUM BLACK MD Ot J44.9 CHRONIC OBSTRUCTIVE PULMONARY DISEASE, U 08/12/2015 ANJUM BLACK MD, Ot K21.9 GASTRO-ESOPHAGEAL REFLUX DISEASE WITHOUT 08/12/2015 ANJUM BLACK MD Ot Z68.41 BODY MASS INDEX (BMI) 40.0-44.9, ADULT 08/12/2015 ANJUM BLACK MD Ot Z79.899 OTHER [facility] (CURRENT) DRUG THERAPY 08/13/2015 CODY DIEZ Ot 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 08/13/2015 DIEZCODY Sharma WOODWORKING MACHINE SETTER Ot E66.01 MORBID (SEVERE) OBESITY DUE TO EXCESS CA 08/13/2015 DIEZ CODY Sharma WOODWORKING MACHINE SETTER Ot E78.5 HYPERLIPIDEMIA, UNSPECIFIED 08/13/2015 CODY DIEZ WOODWORKING MACHINE SETTER Ot F31.9 BIPOLAR DISORDER, UNSPECIFIED 08/13/2015 DIEZCODY Sharma WOODWORKING MACHINE SETTER Ot I10 ESSENTIAL (PRIMARY) HYPERTENSION 08/13/2015 KAREN DIEZSARAH Sharma WOODWORKING MACHINE SETTER Ot J44.9 CHRONIC OBSTRUCTIVE PULMONARY DISEASE, U 08/13/2015 DIEZCODY Sharma WOODWORKING MACHINE SETTER Ot K21.9 GASTRO-ESOPHAGEAL REFLUX DISEASE WITHOUT 08/13/2015 RG CODY Sharma WOODWORKING MACHINE SETTER Ot Z17.0 ESTROGEN RECEPTOR POSITIVE STATUS [ER+] 08/13/2015 RG CODY Sharma WOODWORKING MACHINE SETTER Ot Z68.41 BODY MASS INDEX (BMI) 40.0-44.9, ADULT 08/13/2015 KAREN DIEZSARAH Sharma WOODWORKING MACHINE SETTER Ot Z79.899 OTHER [facility] (CURRENT) DRUG THERAPY 08/21/2015 ANJUM BLACK MD [...] 08/21/2015 ANJUM BLACK MD Ot Z79.899 OTHER [facility] (CURRENT) DRUG THERAPY 08/22/2015 CODY DIEZP Ot 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 08/22/2015 KAREN DIEZSARAH Edith WOODWORKING MACHINE SETTER Ot E66.01 MORBID (SEVERE) OBESITY DUE TO EXCESS CA 08/22/2015 DIEZ, HILAH S WOODWORKING MACHINE SETTER Ot E78.5 HYPERLIPIDEMIA, UNSPECIFIED 08/22/2015 CODY DIEZ WOODWORKING MACHINE SETTER Ot F31.9 BIPOLAR DISORDER, UNSPECIFIED 08/22/2015 CODY DIEZ WOODWORKING MACHINE SETTER Ot I10 ESSENTIAL (PRIMARY) HYPERTENSION 08/22/2015 CODY DIEZ WOODWORKING MACHINE SETTER Ot J44.9 CHRONIC OBSTRUCTIVE PULMONARY DISEASE, U 08/22/2015 CODY DIEZ WOODWORKING MACHINE SETTER Ot K21.9 GASTRO-ESOPHAGEAL REFLUX DISEASE WITHOUT 08/22/2015 CODY DIEZ WOODWORKING MACHINE SETTER Ot Z17.0 ESTROGEN RECEPTOR POSITIVE STATUS [ER+] 08/22/2015 CODY DIEZ WOODWORKING MACHINE SETTER Ot Z68.41 BODY MASS INDEX (BMI) 40.0-44.9, ADULT 08/22/2015 CODY DIEZ WOODWORKING MACHINE SETTER Ot Z79.899 OTHER [facility] (CURRENT) DRUG THERAPY 09/12/2015 NIDHI CASTRO, ARUNA [...] J44.9 CHRONIC OBSTRUCTIVE PULMONARY DISEASE, U 09/20/2015 NIDHI CASTRO, ARUNA Pan Ot Z11.2 ENCOUNTER FOR SCREENING FOR OTHER [...] 10/10/2015 ANJUM BLACK MD Ot Z79.899 OTHER [facility] (CURRENT) DRUG THERAPY 10/17/2015 ANJUM BLACK MD, [...] OBSTRUCTIVE PULMONARY DISEASE, U 10/17/2015 ANJUM BLACK MD, Ot K21.9 GASTRO-ESOPHAGEAL REFLUX DISEASE WITHOUT 10/17/2015 ANJUM BLACK MD Ot Z68.41 BODY MASS INDEX (BMI) 40.0-44.9, ADULT 10/17/2015 ANJUM BLACK MD Ot Z79.899 OTHER [facility] (CURRENT) DRUG THERAPY 11/12/2015 ANJUM BLACK MD, Ot 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 11/12/2015 ANJUM BLACK MD Ot E66.01 MORBID (SEVERE) OBESITY DUE TO EXCESS CA 11/12/2015 ANJUM BLACK MD Ot E78.5 HYPERLIPIDEMIA, UNSPECIFIED 11/12/2015 ANJUM BLACK MD Ot F31.9 BIPOLAR DISORDER, UNSPECIFIED 11/12/2015 ANJUM BLACK MD Ot I10 ESSENTIAL (PRIMARY) HYPERTENSION 11/12/2015 ANJUM BLACK MD Ot J44.9 CHRONIC OBSTRUCTIVE PULMONARY DISEASE, U 11/12/2015 ANJUM BLACK MD Ot K21.9 GASTRO-ESOPHAGEAL REFLUX DISEASE WITHOUT 11/12/2015 ANJUM BLACK MD Ot Z68.41 BODY MASS INDEX (BMI) 40.0-44.9, ADULT 11/12/2015 ANJUM BLACK MD Ot Z79.899 OTHER [facility] (CURRENT) DRUG THERAPY 11/12/2015 ROCÍO STERN MD Ot 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 11/12/2015 ROCÍO STERN MD Ot E66.01 MORBID (SEVERE) OBESITY DUE TO EXCESS CA 11/12/2015 ROCÍO STERN MD Ot E78.5 HYPERLIPIDEMIA, UNSPECIFIED 11/12/2015 ROCÍO STERN MD, Ot F31.9 BIPOLAR DISORDER, UNSPECIFIED 11/12/2015 ROCÍO STERN MD Ot I10 ESSENTIAL (PRIMARY) HYPERTENSION 11/12/2015 ROCÍO STERN MD, Ot J44.9 CHRONIC OBSTRUCTIVE PULMONARY DISEASE, U 11/12/2015 ROCÍO STERN MD, Ot K21.9 GASTRO-ESOPHAGEAL REFLUX DISEASE WITHOUT 11/12/2015 ROCÍO STERN MD Ot Z68.41 BODY MASS INDEX (BMI) 40.0-44.9, ADULT 11/12/2015 ROCÍO STERN MD, Ot Z79.899 OTHER RAILCAR CARPENTER (CURRENT) DRUG THERAPY 11/12/2015 ROCÍO STERN MD, Ot C50.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 [...] Ot K21.9 GASTRO-ESOPHAGEAL REFLUX DISEASE WITHOUT 11/12/2015 JARRED CASTRO, ROCÍO Hays Z68.41 BODY MASS INDEX (BMI) 40.0-44.9, ADULT 11/12/2015 ROCÍO STERN MD Ot Z79.899 OTHER RAILCAR CARPENTER (CURRENT) DRUG THERAPY 11/20/2015 JARRED CASTRO, ROCÍO Hays 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 11/20/2015 ROCÍO STERN MD Ot E66.01 MORBID (SEVERE) OBESITY DUE TO EXCESS CA 11/20/2015 JARRED CASTRO, ROCÍO Ot E78.5 HYPERLIPIDEMIA, UNSPECIFIED 11/20/2015 JARRED CASTRO, ROCÍO Ot F31.9 BIPOLAR DISORDER, UNSPECIFIED 11/20/2015 JARRED CASTRO, ROCÍO Ot I10 ESSENTIAL (PRIMARY) HYPERTENSION 11/20/2015 JARRED CASTRO, ROCÍO Ot J44.9 CHRONIC OBSTRUCTIVE PULMONARY DISEASE, U 11/20/2015 ROCÍO STERN MD Ot K21.9 GASTRO-ESOPHAGEAL REFLUX DISEASE WITHOUT 11/20/2015 ROCÍO STERN MD Ot Z68.41 BODY MASS INDEX (BMI) 40.0-44.9, ADULT 11/20/2015 ROCÍO STERN MD Ot Z79.899 OTHER RAILCAR CARPENTER (CURRENT) DRUG THERAPY 01/20/2016 ROCÍO STERN MD, Ot 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 01/20/2016 ROCÍO STERN MD Ot E66.01 MORBID (SEVERE) OBESITY DUE TO EXCESS CA 01/20/2016 ROCÍO STERN MD, Ot E78.5 HYPERLIPIDEMIA, UNSPECIFIED 01/20/2016 JARRED CASTRO, ROCÍO Ot F31.9 BIPOLAR DISORDER, UNSPECIFIED 01/20/2016 JARRED CASTRO, ROCÍO Ot I10 ESSENTIAL (PRIMARY) HYPERTENSION 01/20/2016 JARRED CASTRO, ROCÍO Ot J44.9 CHRONIC OBSTRUCTIVE PULMONARY DISEASE, U 01/20/2016 ROCÍO STERN MD Ot K21.9 GASTRO-ESOPHAGEAL REFLUX DISEASE WITHOUT 01/20/2016 JARRED CASTRO, ROCÍO Ot Z68.41 BODY MASS INDEX (BMI) 40.0-44.9, ADULT 01/20/2016 ROCÍO STERN MD Ot Z79.899 OTHER RAILCAR CARPENTER (CURRENT) DRUG THERAPY 01/20/2016 XAVIER GARSIA Ot [...] ADULT 01/20/2016 XAVIER GARSIA Ot Z79.899 OTHER [facility] (CURRENT) DRUG THERAPY 01/28/2016 CHRIS WINTER WHITE LEAD GRINDER Ot 626.8 MENSTRUAL DISORDER NEC 01/28/2016 MAGALLANES DO, MYNOR C Ot 626.8 MENSTRUAL DISORDER NEC 01/28/2016 MAGALLANES DO, MYNOR C Ot V72.84 EXAM PRE-OPERATIVE NOS 01/28/2016 MAGALLANES DO, MYNOR C Ot V74.8 SCREEN-BACTERIAL DIS NEC 01/28/2016 MAGALLANES DO, MYNOR C Ot 626.9 MENSTRUAL DISORDER NOS 01/28/2016 MAGALLANES DO, MYNOR C Ot V72.84 EXAM PRE-OPERATIVE NOS 01/28/2016 MAGALLANES DO MYNOR C Ot 789.00 ABDOMINAL PAIN, UNSPECIFIED SITE 01/28/2016 ELIZABETH LEYVA WHITE LEAD GRINDER Ot N63 UNSPECIFIED LUMP IN BREAST 01/28/2016 [...] FOR SCREENING FOR OTHER BACTER 01/28/2016 DIEZCODY WOODWORKING MACHINE SETTER Ot 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 01/28/2016 CODY DIEZ Edith MATTAP Ot E66.01 MORBID (SEVERE) OBESITY DUE TO EXCESS CA 01/28/2016 RG CODY Sharma WOODWORKING MACHINE SETTER Ot E78.5 HYPERLIPIDEMIA, UNSPECIFIED 01/28/2016 RG CODY Sharma WOODWORKING MACHINE SETTER Ot F31.9 BIPOLAR DISORDER, UNSPECIFIED 01/28/2016 RG CODY Sharma WOODWORKING MACHINE SETTER Ot I10 ESSENTIAL (PRIMARY) HYPERTENSION 01/28/2016 RG CODY Sharma WOODWORKING MACHINE SETTER Ot J44.9 CHRONIC OBSTRUCTIVE PULMONARY DISEASE, U 01/28/2016 RG CODY Sharma WOODWORKING MACHINE SETTER Ot K21.9 GASTRO-ESOPHAGEAL REFLUX DISEASE WITHOUT 01/28/2016 KAREN DIEZSARAH MATTAP Ot Z17.0 ESTROGEN RECEPTOR POSITIVE STATUS [ER+] 01/28/2016 RG CODY Sharma WOODWORKING MACHINE SETTER Ot Z68.41 BODY MASS INDEX (BMI) 40.0-44.9, ADULT 01/28/2016 KAREN DIZESARAH MATTAP Ot Z79.899 OTHER [facility] (CURRENT) DRUG THERAPY 01/28/2016 ADY XAVIER Curiel Ot 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 01/28/2016 XAIVER GARSIA Ot E66.01 MORBID (SEVERE) OBESITY DUE TO EXCESS CA 01/28/2016 XAVIER GARSIA N Ot E78.5 HYPERLIPIDEMIA, UNSPECIFIED 01/28/2016 ADYXAVIER ALCOCER N Ot F31.9 BIPOLAR DISORDER, UNSPECIFIED 01/28/2016 ADYXAVIER ALCOCER Ot I10 ESSENTIAL (PRIMARY) HYPERTENSION 01/28/2016 XAVIER GARSIA N Ot J44.9 CHRONIC OBSTRUCTIVE PULMONARY DISEASE, U 01/28/2016 ADYXAVIER ALCOCER N Ot K21.9 GASTRO-ESOPHAGEAL REFLUX DISEASE WITHOUT 01/28/2016 ADYXAVIER ALCOCER N Ot Z68.41 BODY MASS INDEX (BMI) 40.0-44.9, ADULT 01/28/2016 XAVIER GARSIA Ot Z79.899 OTHER [facility] (CURRENT) DRUG THERAPY 01/28/2016 XAVIER GARSIA Ot [...] ADULT 01/28/2016 XAVIER GARSIA Ot Z79.899 OTHER [facility] (CURRENT) DRUG THERAPY 02/24/2016 CHRIS WINTER WHITE LEAD GRINDER Ot 626.8 MENSTRUAL DISORDER NEC 02/24/2016 SONA DOMYNOR C Ot 626.8 MENSTRUAL DISORDER NEC 02/24/2016 MYNOR MAGALLANES DO C Ot V72.84 EXAM PRE-OPERATIVE NOS 02/24/2016 MYNOR MAGALLANES DO C Ot V74.8 SCREEN-BACTERIAL DIS NEC 02/24/2016 MYNOR MAGALLANES DO C Ot 626.9 MENSTRUAL DISORDER NOS 02/24/2016 LAM MAGALLANES DOA C Ot V72.84 EXAM PRE-OPERATIVE NOS 02/24/2016 SONA OLVERA MYNOR C Ot 789.00 ABDOMINAL PAIN, UNSPECIFIED SITE 02/24/2016 ELIZABETH LEYVA WHITE LEAD GRINDER Ot N63 UNSPECIFIED LUMP IN BREAST 02/24/2016 [...] FOR SCREENING FOR OTHER BACTER 02/24/2016 CODY DIEZP Ot 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 02/24/2016 CODY DIEZ WOODWORKING MACHINE SETTER Ot E66.01 MORBID (SEVERE) OBESITY DUE TO EXCESS CA 02/24/2016 CODY DIEZP Ot E78.5 HYPERLIPIDEMIA, UNSPECIFIED 02/24/2016 CODY DIEZP Ot F31.9 BIPOLAR DISORDER, UNSPECIFIED 02/24/2016 CODY DIEZ WOODWORKING MACHINE SETTER Ot I10 ESSENTIAL (PRIMARY) HYPERTENSION 02/24/2016 CODY DIEZP Ot J44.9 CHRONIC OBSTRUCTIVE PULMONARY DISEASE, U 02/24/2016 CODY DIEZP Ot K21.9 GASTRO-ESOPHAGEAL REFLUX DISEASE WITHOUT 02/24/2016 CODY DIEZP Ot Z17.0 ESTROGEN RECEPTOR POSITIVE STATUS [ER+] 02/24/2016 CODY DIEZ WOODWORKING MACHINE SETTER Ot Z68.41 BODY MASS INDEX (BMI) 40.0-44.9, ADULT 02/24/2016 CODY DIEZP Ot Z79.899 OTHER RAILCAR CARPENTER (CURRENT) DRUG THERAPY 02/24/2016 XAVIER GARSIA Ot 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 02/24/2016 ADYXAVIER ALCOCER Ot E66.01 MORBID (SEVERE) OBESITY DUE TO EXCESS CA 02/24/2016 ADYXAVIER ALCOCER N Ot E78.5 HYPERLIPIDEMIA, UNSPECIFIED 02/24/2016 ADYXAVIER ALCOCER Ot F31.9 BIPOLAR DISORDER, UNSPECIFIED 02/24/2016 ADYXAVIER ALCOCER Ot I10 ESSENTIAL (PRIMARY) HYPERTENSION 02/24/2016 ADYXAVIER ALCOCER N Ot J44.9 CHRONIC OBSTRUCTIVE PULMONARY DISEASE, U 02/24/2016 XAVIER GARSIA N Ot K21.9 GASTRO-ESOPHAGEAL REFLUX DISEASE WITHOUT 02/24/2016 ADYXAVIER ALCOCER Ot Z68.41 BODY MASS INDEX (BMI) 40.0-44.9, ADULT 02/24/2016 XAIVER GARSIA Ot Z79.899 OTHER [facility] (CURRENT) DRUG THERAPY 03/20/2016 XAVIER GARSIA Ot 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 03/20/2016 XAVIER GARSIA Ot E66.01 MORBID (SEVERE) OBESITY DUE TO EXCESS CA 03/20/2016 XAIVER GARSIA Ot E78.5 HYPERLIPIDEMIA, UNSPECIFIED 03/20/2016 XAVIER GARSIA Ot F31.9 BIPOLAR DISORDER, UNSPECIFIED 03/20/2016 XAVIER GARSIA Ot I10 ESSENTIAL (PRIMARY) HYPERTENSION 03/20/2016 XAVIER GARSIA Ot J44.9 CHRONIC OBSTRUCTIVE PULMONARY DISEASE, U 03/20/2016 XAVIER GARSIA Ot K21.9 GASTRO-ESOPHAGEAL REFLUX DISEASE WITHOUT 03/20/2016 XAVIER GARSIA Ot Z68.41 BODY MASS INDEX (BMI) 40.0-44.9, ADULT 03/20/2016 XAVIER GARSIA Ot Z79.899 OTHER [facility] (CURRENT) DRUG THERAPY 04/15/2016 CHRIS WINTER WHITE LEAD GRINDER Ot 626.8 MENSTRUAL DISORDER NEC 04/15/2016 MAGALLANES DO MYNOR C Ot 626.8 MENSTRUAL DISORDER NEC 04/15/2016 MAGALLANES DO MYNOR C Ot V72.84 EXAM PRE-OPERATIVE NOS 04/15/2016 MAGALLANES DO MYNOR C Ot V74.8 SCREEN-BACTERIAL DIS NEC 04/15/2016 MAGALLANES DO MYNOR C Ot 626.9 MENSTRUAL DISORDER NOS 04/15/2016 MAGALLANES DO MYNOR C Ot V72.84 EXAM PRE-OPERATIVE NOS 04/15/2016 MAGALLANES DO MYNOR C Ot 789.00 ABDOMINAL PAIN, UNSPECIFIED SITE 04/15/2016 ELIZABETH LEYVA WHITE LEAD GRINDER Ot N63 UNSPECIFIED LUMP IN BREAST 04/15/2016 BEN CASTRO, LIZZIE [place] Ot N32.81 OVERACTIVE BLADDER 04/15/2016 BEN CASTRO, LIZZIE [place] Ot N39.46 MIXED INCONTINENCE 04/15/2016 BEN CASTRO, LIZZIE [place] Ot Z01.818 ENCOUNTER FOR OTHER PREPROCEDURAL EXAMIN 04/15/2016 BEN CASTRO, LIZZIE [place] Ot Z11.2 ENCOUNTER FOR SCREENING FOR OTHER BACTER 04/15/2016 SOFIA CASTRO, ANJUM Ferreira Ot C50.912 MALIGNANT NEOPLASM OF UNSPECIFIED SITE O 04/15/2016 Ot C50.912 MALIGNANT NEOPLASM OF UNSPECIFIED SITE O 04/15/2016 Ot Z01.818 ENCOUNTER FOR OTHER PREPROCEDURAL EXAMIN 04/15/2016 Ot Z11.2 ENCOUNTER FOR SCREENING FOR OTHER BACTER 04/15/2016 CODY DIEZP Ot 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 04/15/2016 CODY DIEZP Ot E66.01 MORBID (SEVERE) OBESITY DUE TO EXCESS CA 04/15/2016 CODY DIEZP Ot E78.5 HYPERLIPIDEMIA, UNSPECIFIED 04/15/2016 CODY DIEZ WOODWORKING MACHINE SETTER Ot F31.9 BIPOLAR DISORDER, UNSPECIFIED 04/15/2016 CODY DIEZ WOODWORKING MACHINE SETTER Ot I10 ESSENTIAL (PRIMARY) HYPERTENSION 04/15/2016 CODY DIEZ WOODWORKING MACHINE SETTER Ot J44.9 CHRONIC OBSTRUCTIVE PULMONARY DISEASE, U 04/15/2016 CODY DIEZ WOODWORKING MACHINE SETTER Ot K21.9 GASTRO-ESOPHAGEAL REFLUX DISEASE WITHOUT 04/15/2016 CODY DIEZ WOODWORKING MACHINE SETTER Ot Z17.0 ESTROGEN RECEPTOR POSITIVE STATUS [ER+] 04/15/2016 CODY DIEZ WOODWORKING MACHINE SETTER Ot Z68.41 BODY MASS INDEX (BMI) 40.0-44.9, ADULT 04/15/2016 CODY DIEZ WOODWORKING MACHINE SETTER Ot Z79.899 OTHER RAIL[employer] CARPENTER (CURRENT) DRUG THERAPY 04/15/2016 XAVIER GARSIA Ot 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 04/15/2016 XAVIER GARSIA Ot E66.01 MORBID (SEVERE) OBESITY DUE TO EXCESS CA 04/15/2016 XAVIER GARSIA Ot E78.5 HYPERLIPIDEMIA, UNSPECIFIED 04/15/2016 ADYXAVIER ALCOCER Ot F31.9 BIPOLAR DISORDER, UNSPECIFIED 04/15/2016 ADYXAVIER ALCOCER N Ot I10 ESSENTIAL (PRIMARY) HYPERTENSION 04/15/2016 XAVIER GARSIA N Ot J44.9 CHRONIC OBSTRUCTIVE PULMONARY DISEASE, U 04/15/2016 XAVIER GARSIA N Ot K21.9 GASTRO-ESOPHAGEAL REFLUX DISEASE WITHOUT 04/15/2016 ADYXAVIER N Ot Z68.41 BODY MASS INDEX (BMI) 40.0-44.9, ADULT 04/15/2016 ADYXAVIER N Ot Z79.899 OTHER RAILCAR CARPENTER (CURRENT) DRUG THERAPY 05/12/2016 ADYXAVIER N Ot 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 05/12/2016 ADY BOBAN N Ot E66.01 MORBID (SEVERE) OBESITY DUE TO EXCESS CA 05/12/2016 ADY, BOBAN N Ot E78.5 HYPERLIPIDEMIA, UNSPECIFIED 05/12/2016 ADY, BOBAN N Ot F31.9 BIPOLAR DISORDER, UNSPECIFIED 05/12/2016 ADY, BOBAN N Ot I10 ESSENTIAL (PRIMARY) HYPERTENSION 05/12/2016 ADY BOBAN N Ot J44.9 CHRONIC OBSTRUCTIVE PULMONARY DISEASE, U 05/12/2016 ADYCATAN N Ot K21.9 GASTRO-ESOPHAGEAL REFLUX DISEASE WITHOUT 05/12/2016 ADY BOBSACHI N Ot Z68.41 BODY MASS INDEX (BMI) 40.0-44.9, ADULT 05/12/2016 ADY BOBAN N Ot Z79.899 OTHER [facility] (CURRENT) DRUG THERAPY 05/19/2016 ADYXAVIER N Ot 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 05/19/2016 ADY BOBAN N Ot E66.01 MORBID (SEVERE) OBESITY DUE TO EXCESS CA 05/19/2016 ADY, BOBAN N Ot E78.5 HYPERLIPIDEMIA, UNSPECIFIED 05/19/2016 ADYXAVIER N Ot F31.9 BIPOLAR DISORDER, UNSPECIFIED 05/19/2016 ADY, BOBAN N Ot I10 ESSENTIAL (PRIMARY) HYPERTENSION 05/19/2016 ADYCATAN N Ot J44.9 CHRONIC OBSTRUCTIVE PULMONARY DISEASE, U 05/19/2016 ADY BOBAN N Ot K21.9 GASTRO-ESOPHAGEAL REFLUX DISEASE WITHOUT 05/19/2016 ADY, BOBAN N Ot Z68.41 BODY MASS INDEX (BMI) 40.0-44.9, ADULT 05/19/2016 ADY BOBAN N Ot Z79.899 OTHER [facility] (CURRENT) DRUG THERAPY 06/02/2016 ADY BOBAN N Ot 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 06/02/2016 AXVIER GARSIA Ot E66.01 MORBID (SEVERE) OBESITY DUE [...] ADULT 06/02/2016 XAVIER GARSIA Ot Z79.899 OTHER [facility] (CURRENT) DRUG THERAPY 06/02/2016 CHRIS WINTER WHITE LEAD GRINDER Ot 626.8 MENSTRUAL DISORDER NEC 06/02/2016 MAGALLANES DO MYNOR C Ot 626.8 MENSTRUAL DISORDER NEC 06/02/2016 MAGALLANES DO MYNOR C Ot V72.84 EXAM PRE-OPERATIVE NOS 06/02/2016 MAGALLANES DO, MYNOR C Ot V74.8 SCREEN-BACTERIAL DIS NEC 06/02/2016 MAGALLANES DO MYNOR C Ot 626.9 MENSTRUAL DISORDER NOS 06/02/2016 MAGALLANES DO MYNOR C Ot V72.84 EXAM PRE-OPERATIVE NOS 06/02/2016 MAGALLANES DO MYNOR C Ot 789.00 ABDOMINAL PAIN, UNSPECIFIED SITE 06/02/2016 ELIZABETH LEYVA WHITE LEAD GRINDER Ot N63 UNSPECIFIED LUMP IN BREAST 06/02/2016 [...] ENCOUNTER FOR SCREENING FOR OTHER BACTER 06/02/2016 KAREN DIEZSARAH Edith MATTAP Ot 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 06/02/2016 DIEZCODY Sharma WOODWORKING MACHINE SETTER Ot E66.01 MORBID (SEVERE) OBESITY DUE TO EXCESS CA 06/02/2016 RG CODY Sharma WOODWORKING MACHINE SETTER Ot E78.5 HYPERLIPIDEMIA, UNSPECIFIED 06/02/2016 RG CODY Sharma WOODWORKING MACHINE SETTER Ot F31.9 BIPOLAR DISORDER, UNSPECIFIED 06/02/2016 DIEZ CODY Sharma WOODWORKING MACHINE SETTER Ot I10 ESSENTIAL (PRIMARY) HYPERTENSION 06/02/2016 KAREN DIEZSARAH Edith WOODWORKING MACHINE SETTER Ot J44.9 CHRONIC OBSTRUCTIVE PULMONARY DISEASE, U 06/02/2016 DIEZ CODY Sharma WOODWORKING MACHINE SETTER Ot K21.9 GASTRO-ESOPHAGEAL REFLUX DISEASE WITHOUT 06/02/2016 RG CODY Sharma WOODWORKING MACHINE SETTER Ot Z17.0 ESTROGEN RECEPTOR POSITIVE STATUS [ER+] 06/02/2016 KAREN DIEZSARAH Sharma WOODWORKING MACHINE SETTER Ot Z68.41 BODY MASS INDEX (BMI) 40.0-44.9, ADULT 06/02/2016 DIEZCODY SharmaP Ot Z79.899 OTHER [facility] (CURRENT) DRUG THERAPY 06/02/2016 ADYXAVIER Ot 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 06/02/2016 XAVIER GARSIA Ot E66.01 MORBID (SEVERE) OBESITY DUE TO EXCESS CA 06/02/2016 XAVIER GARSIA Ot E78.5 HYPERLIPIDEMIA, UNSPECIFIED 06/02/2016 XAVIER GARSIA Ot F31.9 BIPOLAR DISORDER, UNSPECIFIED 06/02/2016 ADYXAVIER ALCOCER Ot I10 ESSENTIAL (PRIMARY) HYPERTENSION 06/02/2016 XAVIER GARSIA Ot J44.9 CHRONIC OBSTRUCTIVE PULMONARY DISEASE, U 06/02/2016 XAVIER GARSIA N Ot K21.9 GASTRO-ESOPHAGEAL REFLUX DISEASE WITHOUT 06/02/2016 ADYXAVIER ALCOCER N Ot Z68.41 BODY MASS INDEX (BMI) 40.0-44.9, ADULT 06/02/2016 XAVIER GARSIA Ot Z79.899 OTHER [facility] (CURRENT) DRUG THERAPY 06/17/2016 ADYXAVIER N Ot 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 06/17/2016 ADYXAVIER N Ot E66.01 MORBID (SEVERE) OBESITY DUE TO EXCESS CA 06/17/2016 ADYXAVIER N Ot E78.5 HYPERLIPIDEMIA, UNSPECIFIED 06/17/2016 ADYXAVIER N Ot F31.9 BIPOLAR DISORDER, UNSPECIFIED 06/17/2016 ADY BOBSACHI N Ot I10 ESSENTIAL (PRIMARY) HYPERTENSION 06/17/2016 ADYXAVIER N Ot J44.9 CHRONIC OBSTRUCTIVE PULMONARY DISEASE, U 06/17/2016 ADYXAVIER N Ot K21.9 GASTRO-ESOPHAGEAL REFLUX DISEASE WITHOUT 06/17/2016 ADYXAVIER N Ot Z68.41 BODY MASS INDEX (BMI) 40.0-44.9, ADULT 06/17/2016 XAVIER GARSIA N Ot Z79.899 OTHER RAIL[employer] CARPENTER (CURRENT) DRUG THERAPY 06/18/2016 ADYXAVIER ALCOCER N Ot 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 06/18/2016 ADY BOBSACHI N Ot E66.01 MORBID (SEVERE) OBESITY DUE TO EXCESS CA 06/18/2016 ADYXAVIER N Ot E78.5 HYPERLIPIDEMIA, UNSPECIFIED 06/18/2016 ADY BOBSACHI N Ot F31.9 BIPOLAR DISORDER, UNSPECIFIED 06/18/2016 ADY BOBAN N Ot I10 ESSENTIAL (PRIMARY) HYPERTENSION 06/18/2016 XAVIER GARSIA N Ot J44.9 CHRONIC OBSTRUCTIVE PULMONARY DISEASE, U 06/18/2016 ADYXAVIER N Ot K21.9 GASTRO-ESOPHAGEAL REFLUX DISEASE WITHOUT 06/18/2016 ADYXAVIER N Ot Z68.41 BODY MASS INDEX (BMI) 40.0-44.9, ADULT 06/18/2016 ADYCATAN N Ot Z79.899 OTHER [facility] (CURRENT) DRUG THERAPY 06/18/2016 CHRIS WINTER APRN Ot 626.8 MENSTRUAL DISORDER NEC 06/18/2016 MYNOR MAGALLANES DO Ot 626.8 MENSTRUAL DISORDER NEC 06/18/2016 MYNOR MAGALLANES DO Ot V72.84 EXAM PRE-OPERATIVE NOS 06/18/2016 MYNOR MAGALLANES DO Ot V74.8 SCREEN-BACTERIAL DIS NEC 06/18/2016 MYNOR MAGALLANES DO Ot 626.9 MENSTRUAL DISORDER NOS 06/18/2016 MYNOR MAGALLANES DO Ot V72.84 EXAM PRE-OPERATIVE NOS 06/18/2016 MYNOR MAGALLANES DO Ot 789.00 ABDOMINAL PAIN, UNSPECIFIED SITE 06/18/2016 ELIZABETH LEYVA APRN Ot N63 UNSPECIFIED LUMP IN BREAST 06/18/2016 BEN CASTRO, LIZZIE [place] Ot N32.81 OVERACTIVE BLADDER 06/18/2016 BEN CASTRO, LIZZIE [place] Ot N39.46 MIXED INCONTINENCE 06/18/2016 BEN CASTRO, LIZZIE [place] Ot Z01.818 ENCOUNTER FOR OTHER PREPROCEDURAL EXAMIN 06/18/2016 BEN CASTRO, LIZZIE [place] Ot Z11.2 ENCOUNTER FOR SCREENING FOR OTHER BACTER 06/18/2016 SOFIA CASTRO, ANJUM Hanna Ot C50.912 MALIGNANT [...] DIEZP Ot E78.5 HYPERLIPIDEMIA, UNSPECIFIED 06/18/2016 CODY DIEZP Ot F31.9 BIPOLAR DISORDER, UNSPECIFIED 06/18/2016 CODY DIEZP Ot I10 ESSENTIAL (PRIMARY) HYPERTENSION 06/18/2016 CODY DIEZP Ot J44.9 CHRONIC OBSTRUCTIVE PULMONARY DISEASE, U 06/18/2016 CODY DIEZP Ot K21.9 GASTRO-ESOPHAGEAL REFLUX DISEASE WITHOUT 06/18/2016 CODY DIEZP Ot Z17.0 ESTROGEN RECEPTOR POSITIVE STATUS [ER+] 06/18/2016 CODY DIEZP Ot Z68.41 BODY MASS INDEX (BMI) 40.0-44.9, ADULT 06/18/2016 CODY DIEZP Ot Z79.899 OTHER [facility] (CURRENT) DRUG THERAPY 06/18/2016 ADY, BOBAN N Ot 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 06/18/2016 ADY, BOBAN N Ot E66.01 MORBID (SEVERE) OBESITY DUE TO EXCESS CA 06/18/2016 ADY, BOBAN N Ot E78.5 HYPERLIPIDEMIA, UNSPECIFIED 06/18/2016 ADY, BOBAN N Ot F31.9 BIPOLAR DISORDER, UNSPECIFIED 06/18/2016 ADY, BOBAN N Ot I10 ESSENTIAL (PRIMARY) HYPERTENSION 06/18/2016 ADY, BOBAN N Ot J44.9 CHRONIC OBSTRUCTIVE PULMONARY DISEASE, U 06/18/2016 ADY, BOBAN N Ot K21.9 GASTRO-ESOPHAGEAL REFLUX DISEASE WITHOUT 06/18/2016 ADY, BOBAN N Ot Z68.41 BODY MASS INDEX (BMI) 40.0-44.9, ADULT 06/18/2016 ADY, BOBAN N Ot Z79.899 OTHER [facility] (CURRENT) DRUG THERAPY 06/18/2016 ADY, BOBAN N Ot 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 06/18/2016 ADY, BOBAN N Ot E66.01 MORBID (SEVERE) OBESITY DUE TO EXCESS CA 06/18/2016 ADY, BOBAN N Ot E78.5 HYPERLIPIDEMIA, UNSPECIFIED 06/18/2016 ADY, BOBAN N Ot F31.9 BIPOLAR DISORDER, UNSPECIFIED 06/18/2016 ADY, BOBAN N Ot I10 ESSENTIAL (PRIMARY) HYPERTENSION 06/18/2016 ADY, BOBAN N Ot J44.9 CHRONIC OBSTRUCTIVE PULMONARY DISEASE, U 06/18/2016 ADY, BOBAN N Ot K21.9 GASTRO-ESOPHAGEAL REFLUX DISEASE WITHOUT 06/18/2016 ADY, BOBAN N Ot Z68.41 BODY MASS INDEX (BMI) 40.0-44.9, ADULT 06/18/2016 ADY, BOBAN N Ot Z79.899 OTHER [facility] (CURRENT) DRUG THERAPY 06/24/2016 ADY, BOBAN N Ot C50.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 [...] 06/24/2016 XAVIER GARSIA N Ot Z79.899 OTHER [facility] (CURRENT) DRUG THERAPY 07/29/2016 XAVIER GARSIA Veena [...] 07/29/2016 XAVIER GARSIA N Ot Z79.899 OTHER [facility] (CURRENT) DRUG THERAPY 08/04/2016 CHRIS WINTER APRN Ot 626.8 MENSTRUAL DISORDER NEC 08/04/2016 MAGALLANES DOMYNOR Ot 626.8 MENSTRUAL DISORDER NEC 08/04/2016 MYNOR MAGALLANES DO Ot V72.84 EXAM PRE-OPERATIVE NOS 08/04/2016 MYNOR MAGALLANES DO C Ot V74.8 SCREEN-BACTERIAL DIS NEC 08/04/2016 MYNOR MAGALLANES DO C Ot 626.9 MENSTRUAL DISORDER NOS 08/04/2016 LAM MAGALLANES DOA C Ot V72.84 EXAM PRE-OPERATIVE NOS 08/04/2016 MAGALLANES DO, MYNOR C Ot 789.00 ABDOMINAL PAIN, UNSPECIFIED SITE 08/04/2016 GORDON ELIZABETH Román VASQUES Ot N63 UNSPECIFIED LUMP IN BREAST 08/04/2016 [...] OF UPPER-OUTER QUADRANT O 08/04/2016 CODY DIEZ WOODWORKING MACHINE SETTER Ot E66.01 MORBID (SEVERE) OBESITY DUE TO EXCESS CA 08/04/2016 CODY DIEZ WOODWORKING MACHINE SETTER Ot E78.5 HYPERLIPIDEMIA, UNSPECIFIED 08/04/2016 CODY DIEZ WOODWORKING MACHINE SETTER Ot F31.9 BIPOLAR DISORDER, UNSPECIFIED 08/04/2016 CODY DIEZ WOODWORKING MACHINE SETTER Ot I10 ESSENTIAL (PRIMARY) HYPERTENSION 08/04/2016 CODY DIEZ WOODWORKING MACHINE SETTER Ot J44.9 CHRONIC OBSTRUCTIVE PULMONARY DISEASE, U 08/04/2016 CODY DIEZ WOODWORKING MACHINE SETTER Ot K21.9 GASTRO-ESOPHAGEAL REFLUX DISEASE WITHOUT 08/04/2016 CODY DIEZ WOODWORKING MACHINE SETTER Ot Z17.0 ESTROGEN RECEPTOR POSITIVE STATUS [ER+] 08/04/2016 CODY DIEZP Ot Z68.41 BODY MASS INDEX (BMI) 40.0-44.9, ADULT 08/04/2016 CODY DIEZ WOODWORKING MACHINE SETTER Ot Z79.899 OTHER [facility] (CURRENT) DRUG THERAPY 08/04/2016 XAVIER GARSIA Ot [...] ADULT 08/04/2016 XAVIER GARSIA Ot Z79.899 OTHER [facility] (CURRENT) DRUG THERAPY 08/04/2016 CODY DIEZ WOODWORKING MACHINE SETTER Ot 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 08/04/2016 CODY DIEZP Ot Z12.31 ENCNTR SCREEN MAMMOGRAM FOR MALIGNANT NE 08/06/2016 CODY DIEZ WOODWORKING MACHINE SETTER Ot 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 08/06/2016 CODY DIEZP Ot Z12.31 ENCNTR SCREEN MAMMOGRAM FOR MALIGNANT NE 08/06/2016 CODY DIEZ WOODWORKING MACHINE SETTER Ot 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 08/06/2016 CODY DIEZ WOODWORKING MACHINE SETTER Ot Z12.31 ENCNTR SCREEN MAMMOGRAM FOR MALIGNANT NE 08/06/2016 CODY DIEZ WOODWORKING MACHINE SETTER Ot 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 08/06/2016 CODY DIEZ WOODWORKING MACHINE SETTER Ot Z12.31 ENCNTR SCREEN MAMMOGRAM FOR MALIGNANT NE 08/07/2016 CODY DIEZ WOODWORKING MACHINE SETTER Ot 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 08/07/2016 CODY DIEZ WOODWORKING MACHINE SETTER Ot 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 08/07/2016 CODY DIEZP Ot Z12.31 ENCNTR SCREEN MAMMOGRAM FOR MALIGNANT NE 08/07/2016 CODY DIEZP Ot Z79.818 LNG TRM (CRNT) USE OF AGNT AFF ESTROG RE 08/07/2016 DIEZ, HILAH S WOODWORKING MACHINE SETTER Ot Z90.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, BILATERAL 08/31/2016 CODY DIEZ WOODWORKING MACHINE SETTER Ot 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 08/31/2016 CODY DIEZ WOODWORKING MACHINE SETTER Ot 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 08/31/2016 CODY DIEZ WOODWORKING MACHINE SETTER Ot Z12.31 ENCNTR SCREEN MAMMOGRAM FOR MALIGNANT NE 08/31/2016 CODY DIEZP Ot Z79.818 LNG TRM (CRNT) USE OF AGNT AFF ESTROG RE 08/31/2016 CODY DIEZ WOODWORKING MACHINE SETTER Ot Z90.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, BILATERAL 09/07/2016 CODY DIEZ WOODWORKING MACHINE SETTER Ot 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 09/07/2016 CODY DIEZ WOODWORKING MACHINE SETTER Ot 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 09/07/2016 CODY DIEZ WOODWORKING MACHINE SETTER Ot Z12.31 ENCNTR SCREEN MAMMOGRAM FOR MALIGNANT NE 09/07/2016 CODY DIEZP Ot Z79.818 LNG TRM (CRNT) USE OF AGNT AFF ESTROG RE 09/07/2016 CODY DIEZ WOODWORKING MACHINE SETTER Ot Z90.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, BILATERAL 09/10/2016 CODY DIEZ WOODWORKING MACHINE SETTER Ot 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 09/10/2016 CODY DIEZ WOODWORKING MACHINE SETTER Ot 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 09/10/2016 CODY DIEZ WOODWORKING MACHINE SETTER Ot Z12.31 ENCNTR SCREEN MAMMOGRAM FOR MALIGNANT NE 09/10/2016 CDOY DIEZ WOODWORKING MACHINE SETTER Ot Z79.818 LNG TRM (CRNT) USE OF AGNT AFF ESTROG RE 09/10/2016 CODY DIEZ WOODWORKING MACHINE SETTER Ot Z90.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, BILATERAL [...] FOR SCREENING FOR OTHER BACTER 09/10/2016 CODY DIEZ Ot C50.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 OF [...] ADULT 09/10/2016 CODY DIEZP Ot Z79.899 OTHER [facility] (CURRENT) DRUG THERAPY 09/10/2016 XAVIER GARSIA N Ot 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 09/10/2016 XAVIER GARSIA Veena Ot E66.01 MORBID (SEVERE) OBESITY DUE TO EXCESS CA 09/10/2016 XAVIER GARSIA N Ot E78.5 HYPERLIPIDEMIA, UNSPECIFIED 09/10/2016 XAVIER GARSIA Veena Ot F31.9 BIPOLAR DISORDER, UNSPECIFIED 09/10/2016 XAVIER GARSIA N Ot I10 ESSENTIAL (PRIMARY) HYPERTENSION 09/10/2016 XAVIER GARSIA Veena Ot J44.9 CHRONIC OBSTRUCTIVE PULMONARY DISEASE, U 09/10/2016 XAVIER GARSIA N Ot K21.9 GASTRO-ESOPHAGEAL REFLUX DISEASE WITHOUT 09/10/2016 XAVIER GARSIA Veena Ot Z68.41 BODY MASS INDEX (BMI) 40.0-44.9, ADULT 09/10/2016 XAVIER GARSIA N Ot Z79.899 OTHER [facility] (CURRENT) DRUG THERAPY 09/10/2016 CODY DIEZ WOODWORKING MACHINE SETTER Ot 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 09/10/2016 CODY DIEZ WOODWORKING MACHINE SETTER Ot 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 09/10/2016 CODY DIEZ WOODWORKING MACHINE SETTER Ot Z12.31 ENCNTR SCREEN MAMMOGRAM FOR MALIGNANT NE 09/10/2016 CODY DIEZ WOODWORKING MACHINE SETTER Ot Z79.818 LNG TRM (CRNT) USE OF [...] GASTRO-ESOPHAGEAL REFLUX DISEASE WITHOUT 09/11/2016 XAVIER GARSIA N Ot Z68.41 BODY MASS INDEX (BMI) 40.0-44.9, ADULT 09/11/2016 XAVIER GARSIA N Ot Z79.899 OTHER [facility] (CURRENT) DRUG THERAPY 09/18/2016 ADY CATSACHI Veena Ot 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 09/18/2016 ADY CATSACHI N Ot E66.01 MORBID (SEVERE) OBESITY DUE TO EXCESS CA 09/18/2016 ADY XAVIER N Ot E78.5 HYPERLIPIDEMIA, UNSPECIFIED 09/18/2016 ADY XAVIER N Ot F31.9 BIPOLAR DISORDER, UNSPECIFIED 09/18/2016 ADY XAVIER N Ot I10 ESSENTIAL (PRIMARY) HYPERTENSION 09/18/2016 ADYXAVIER N Ot J44.9 CHRONIC OBSTRUCTIVE PULMONARY DISEASE, U 09/18/2016 ADY CATSACHI N Ot K21.9 GASTRO-ESOPHAGEAL REFLUX DISEASE WITHOUT 09/18/2016 XAVIER GARSIA N Ot Z68.41 BODY MASS INDEX (BMI) 40.0-44.9, ADULT 09/18/2016 XAVIER GARSIA Veena Ot Z79.899 OTHER [facility] (CURRENT) DRUG THERAPY 09/27/2016 RADHA GEORGES MD [...] N Ot E78.5 HYPERLIPIDEMIA, UNSPECIFIED 10/26/2016 ADYXAVIER N Ot F31.9 BIPOLAR DISORDER, UNSPECIFIED 10/26/2016 XAVIER GARSIA N Ot I10 ESSENTIAL (PRIMARY) HYPERTENSION 10/26/2016 XAVIER GARSIA N Ot J44.9 CHRONIC OBSTRUCTIVE PULMONARY DISEASE, U 10/26/2016 XAVIER GARSIA N Ot K21.9 GASTRO-ESOPHAGEAL REFLUX DISEASE WITHOUT 10/26/2016 XAVIER GARSIA N Ot Z68.41 BODY MASS INDEX (BMI) 40.0-44.9, ADULT 10/26/2016 XAVIER GARSIA N Ot Z79.899 OTHER [facility] [facility] (CURRENT) DRUG THERAPY 10/26/2016 XAVIER GARSIA N [...] 10/26/2016 XAVIER GARSIA N Ot Z79.899 OTHER [facility] [facility] (CURRENT) DRUG THERAPY 10/26/2016 CHRIS WINTER WHITE LEAD GRINDER Ot 626.8 MENSTRUAL DISORDER NEC 10/26/2016 MAGALLANES DO MYNOR C Ot 626.8 MENSTRUAL DISORDER NEC 10/26/2016 MAGALLANES DO, MYNOR C Ot V72.84 EXAM PRE-OPERATIVE NOS 10/26/2016 MAGALLANES DO, MYNOR C Ot V74.8 SCREEN-BACTERIAL DIS NEC 10/26/2016 MAGALLANES DO MYNOR C Ot 626.9 MENSTRUAL DISORDER NOS 10/26/2016 MAGALLANES DO, MYNOR C Ot V72.84 EXAM PRE-OPERATIVE NOS 10/26/2016 MAGALLANES DO MYNOR C Ot 789.00 ABDOMINAL PAIN, UNSPECIFIED SITE 10/26/2016 ELIZABETH LEYVA WHITE LEAD GRINDER Ot N63 UNSPECIFIED LUMP IN BREAST 10/26/2016 [...] NEOPLASM OF UPPER-OUTER QUADRANT O 10/26/2016 CODY DIEZP Ot E66.01 MORBID (SEVERE) OBESITY DUE TO EXCESS CA 10/26/2016 CODY DIEZ WOODWORKING MACHINE SETTER Ot E78.5 HYPERLIPIDEMIA, UNSPECIFIED 10/26/2016 CODY DIEZP Ot F31.9 BIPOLAR DISORDER, UNSPECIFIED 10/26/2016 CODY DIEZ WOODWORKING MACHINE SETTER Ot I10 ESSENTIAL (PRIMARY) HYPERTENSION 10/26/2016 CODY DIEZ WOODWORKING MACHINE SETTER Ot J44.9 CHRONIC OBSTRUCTIVE PULMONARY DISEASE, U 10/26/2016 CODY DIEZP Ot K21.9 GASTRO-ESOPHAGEAL REFLUX DISEASE WITHOUT 10/26/2016 CODY DIEZ WOODWORKING MACHINE SETTER Ot Z17.0 ESTROGEN RECEPTOR POSITIVE STATUS [ER+] 10/26/2016 CODY DIEZ WOODWORKING MACHINE SETTER Ot Z68.41 BODY MASS INDEX (BMI) 40.0-44.9, ADULT 10/26/2016 CODY DIEZ WOODWORKING MACHINE SETTER Ot Z79.899 OTHER [facility] (CURRENT) DRUG THERAPY 10/26/2016 XAVIER GARSIA Ot [...] ADULT 10/26/2016 XAVIER GARSIA Ot Z79.899 OTHER [facility] [facility] (CURRENT) DRUG THERAPY 10/26/2016 CODY DIEZP Ot 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 10/26/2016 CODY DIEZ WOODWORKING MACHINE SETTER Ot 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 10/26/2016 CODY DIEZ Ot Z12.31 ENCNTR SCREEN MAMMOGRAM FOR MALIGNANT NE 10/26/2016 CODY DIEZ Ot Z79.818 LNG TRM (CRNT) USE OF AGNT AFF ESTROG RE 10/26/2016 CODY DIEZ WOODWORKING MACHINE SETTER Ot Z90.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, BILATERAL 11/27/2016 CHRIS WINTER WHITE LEAD GRINDER Ot 626.8 MENSTRUAL DISORDER NEC 11/27/2016 MYNOR MAGALLANES DO Ot 626.8 MENSTRUAL DISORDER NEC 11/27/2016 MYNOR MAGALLANES DO Ot V72.84 EXAM PRE-OPERATIVE NOS 11/27/2016 MYNOR MAGALLANES DO Ot V74.8 SCREEN-BACTERIAL DIS NEC 11/27/2016 MYNOR MAGALLANES DO Ot 626.9 MENSTRUAL DISORDER NOS 11/27/2016 MYNOR MAGALLANES DO Ot V72.84 EXAM PRE-OPERATIVE NOS 11/27/2016 MYNOR MAGALLANES DO Ot 789.00 ABDOMINAL PAIN, UNSPECIFIED SITE 11/27/2016 ELIZABETH LEYVA WHITE LEAD GRINDER Ot N63 UNSPECIFIED LUMP IN BREAST 11/27/2016 [...] OBESITY DUE TO EXCESS CA 11/27/2016 CODY DIEZ Ot E78.5 HYPERLIPIDEMIA, UNSPECIFIED 11/27/2016 CODY DIEZ Ot F31.9 BIPOLAR DISORDER, UNSPECIFIED 11/27/2016 CODY DIEZ Ot I10 ESSENTIAL (PRIMARY) HYPERTENSION 11/27/2016 CODY DIEZP Ot J44.9 CHRONIC OBSTRUCTIVE PULMONARY DISEASE, U 11/27/2016 CODY DIEZ Ot K21.9 GASTRO-ESOPHAGEAL REFLUX DISEASE WITHOUT 11/27/2016 CODY DIEZP Ot Z17.0 ESTROGEN RECEPTOR POSITIVE STATUS [ER+] 11/27/2016 CODY DIEZP Ot Z68.41 BODY MASS INDEX (BMI) 40.0-44.9, ADULT 11/27/2016 CODY DIEZP Ot Z79.899 OTHER [facility] (CURRENT) DRUG THERAPY 11/27/2016 CODY DIEZP Ot 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 11/27/2016 CODY DIEZ Ot 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 11/27/2016 CODY DIEZ Ot Z12.31 ENCNTR SCREEN MAMMOGRAM FOR MALIGNANT NE 11/27/2016 CODY DIEZP Ot Z79.818 LNG TRM (CRNT) USE OF AGNT AFF ESTROG RE 11/27/2016 CODY DIEZ WOODWORKING MACHINE SETTER Ot Z90.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, BILATERAL 11/27/2016 ADY, BOBAN N Ot C50.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 [...] 11/27/2016 ADY, BOBAN N Ot Z79.899 OTHER [facility] (CURRENT) DRUG THERAPY 12/02/2016 ADY, BOBAN N Ot C50.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 [...] 12/02/2016 ADY, BOBAN N Ot Z79.899 OTHER [facility] (CURRENT) DRUG THERAPY 01/01/2017 CHRIS WINTER APRN [...] INDEX (BMI) 40.0-44.9, ADULT 01/01/2017 CODY DIEZ WOODWORKING MACHINE SETTER Ot Z79.899 OTHER [facility] (CURRENT) DRUG THERAPY 01/01/2017 CODY DIEZ WOODWORKING MACHINE SETTER Ot 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 01/01/2017 CODY DIEZP Ot 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 01/01/2017 CODY DIEZ REX Ot Z12.31 ENCNTR SCREEN MAMMOGRAM FOR MALIGNANT NE 01/01/2017 CODY DIEZP Ot Z79.818 LNG TRM (CRNT) USE OF AGNT AFF ESTROG RE 01/01/2017 CODY DIEZ REX Ot Z90.722 ACQUIRED ABSENCE [...] ADULT 01/01/2017 XAVIER GARSIA Ot Z79.899 OTHER [facility] [facility] (CURRENT) DRUG THERAPY 01/27/2017 CHRIS WINTER APRN Ot 626.8 MENSTRUAL DISORDER NEC 01/27/2017 MNYOR MAGALLANES DO Ot 626.8 MENSTRUAL DISORDER NEC 01/27/2017 MYNOR MAGALLANES DO Ot V72.84 EXAM PRE-OPERATIVE NOS 01/27/2017 MYNOR MAGALLANES DO Ot V74.8 SCREEN-BACTERIAL DIS NEC 01/27/2017 MYNOR MAGALLANES DO Ot 626.9 MENSTRUAL DISORDER NOS 01/27/2017 MYNOR MAGALLANES DO Ot V72.84 EXAM PRE-OPERATIVE NOS 01/27/2017 MYNOR [...] NEOPLASM OF UPPER-OUTER QUADRANT O 01/27/2017 CODY DIEZP Ot E66.01 MORBID (SEVERE) OBESITY DUE TO EXCESS CA 01/27/2017 CODY DIEZP Ot E78.5 HYPERLIPIDEMIA, UNSPECIFIED 01/27/2017 CODY DIEZP [...] ADULT 01/27/2017 CODY DIEZP Ot Z79.899 OTHER [facility] (CURRENT) DRUG THERAPY 01/27/2017 OCDY DIEZP Ot 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 01/27/2017 CODY DIEZ WOODWORKING MACHINE SETTER Ot 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 01/27/2017 CODY DIEZ WOODWORKING MACHINE SETTER Ot Z12.31 ENCNTR SCREEN MAMMOGRAM FOR MALIGNANT NE 01/27/2017 CODY DIEZ WOODWORKING MACHINE SETTER Ot Z79.818 LNG TRM (CRNT) USE OF AGNT AFF ESTROG RE 01/27/2017 CODY DIEZ WOODWORKING MACHINE SETTER Ot Z90.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, BILATERAL 01/27/2017 MOY, CHRIS A WHITE LEAD GRINDER Ot 626.8 MENSTRUAL DISORDER NEC 01/27/2017 MAGALLANES [...] ABDOMINAL PAIN, UNSPECIFIED SITE 01/27/2017 ELIZABETH LEYVA WHITE LEAD GRINDER Ot N63 UNSPECIFIED LUMP IN BREAST 01/27/2017 BEN CASTRO, LIZZIE [place] Ot N32.81 OVERACTIVE BLADDER 01/27/2017 BEN CASTRO, LIZZIE [place] Ot N39.46 MIXED INCONTINENCE 01/27/2017 BEN CASTRO, LIZZIE [place] Ot Z01.818 ENCOUNTER FOR OTHER PREPROCEDURAL EXAMIN 01/27/2017 BEN CASTRO, LIZZIE [place] Ot Z11.2 ENCOUNTER FOR SCREENING FOR OTHER BACTER 01/27/2017 SOFIA CASTRO, ANJUM Hanna Ot C50.912 MALIGNANT NEOPLASM OF UNSPECIFIED SITE O 01/27/2017 Ot C50.912 MALIGNANT NEOPLASM OF UNSPECIFIED SITE O 01/27/2017 Ot Z01.818 ENCOUNTER FOR OTHER PREPROCEDURAL EXAMIN 01/27/2017 Ot Z11.2 ENCOUNTER FOR SCREENING FOR OTHER BACTER 01/27/2017 CODY DIEZ WOODWORKING MACHINE SETTER Ot 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 01/27/2017 CODY DIEZ WOODWORKING MACHINE SETTER Ot E66.01 MORBID (SEVERE) OBESITY DUE TO EXCESS CA 01/27/2017 CODY DIEZP Ot E78.5 HYPERLIPIDEMIA, UNSPECIFIED 01/27/2017 RG CODY Sharma WOODWORKING MACHINE SETTER Ot F31.9 BIPOLAR DISORDER, UNSPECIFIED 01/27/2017 DIEZCODY Sharma WOODWORKING MACHINE SETTER Ot I10 ESSENTIAL (PRIMARY) HYPERTENSION 01/27/2017 KAREN DIEZSARAH Sharma REX Ot J44.9 CHRONIC OBSTRUCTIVE PULMONARY DISEASE, U 01/27/2017 DIEZCODY REX Ot K21.9 GASTRO-ESOPHAGEAL REFLUX DISEASE WITHOUT 01/27/2017 DIEZ CODY MATTAP Ot Z17.0 ESTROGEN RECEPTOR POSITIVE STATUS [ER+] 01/27/2017 RG CODY Sharma REX Ot Z68.41 BODY MASS INDEX (BMI) 40.0-44.9, ADULT 01/27/2017 DIEZCODYP Ot Z79.899 OTHER [employer] (CURRENT) DRUG THERAPY 01/27/2017 RG CODY MATTAP Ot 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 01/27/2017 CODY DIEZP Ot 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 01/27/2017 RG CODY MATTAP Ot Z12.31 ENCNTR SCREEN MAMMOGRAM FOR MALIGNANT NE 01/27/2017 RG CODY MATTAP Ot Z79.818 LNG TRM (CRNT) USE OF AGNT AFF ESTROG RE 01/27/2017 RG CODY MATTAP Ot Z90.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, BILATERAL 02/11/2017 KENDY SELLERS DO Ot F31.9 BIPOLAR DISORDER, UNSPECIFIED 02/11/2017 KENDY SELLERS DO K Ot F41.9 ANXIETY DISORDER, UNSPECIFIED 02/11/2017 KENDY SELLERS DO K Ot F90.9 ATTENTION-DEFICIT HYPERACTIVITY DISORDER 02/11/2017 KENDY SELLERS DO K Ot G25.81 RESTLESS LEGS SYNDROME 02/11/2017 KEKE SELLERS DOA K Ot I10 ESSENTIAL (PRIMARY) HYPERTENSION 02/11/2017 KEKE SELLERS DOA K Ot J44.9 CHRONIC OBSTRUCTIVE PULMONARY DISEASE, U 02/11/2017 KENDY SELLERS DO Ot K21.9 GASTRO-ESOPHAGEAL REFLUX DISEASE WITHOUT 02/11/2017 KENDY SELLERS DO Ot L50.9 URTICARIA, UNSPECIFIED 02/11/2017 KENDY SELLERS DO Ot M47.9 SPONDYLOSIS, UNSPECIFIED 02/11/2017 KENDY SELLERS DO Ot R21 RASH AND OTHER NONSPECIFIC SKIN ERUPTION 02/11/2017 KENDY SELLERS DO Ot Z87.59 PERSONAL HISTORY OF COMP OF PREG, CHLDBR 02/11/2017 KENDY SELLERS DO Ot Z87.891 PERSONAL HISTORY OF NICOTINE DEPENDENCE 02/11/2017 KENDY SELLERS DO Ot Z90.13 ACQUIRED ABSENCE OF BILATERAL BREASTS AN 02/11/2017 KENDY SELLERS DO Ot Z90.49 ACQUIRED ABSENCE OF OTHER SPECIFIED PART 02/11/2017 KENDY SELLERS DO Ot Z90.710 ACQUIRED ABSENCE OF BOTH CERVIX AND UTER 02/11/2017 KENDY SELLERS DO Ot Z91.5 PERSONAL HISTORY OF SELF-HARM 03/05/2017 KENDY SELLERS DO Ot F90.9 ATTENTION-DEFICIT HYPERACTIVITY DISORDER 03/05/2017 KENDY SELLERS DO Ot I10 ESSENTIAL (PRIMARY) HYPERTENSION 03/05/2017 KENDY SELLERS DO Ot J44.9 CHRONIC OBSTRUCTIVE PULMONARY DISEASE, U 03/05/2017 KENDY SELLERS DO Ot K21.9 GASTRO-ESOPHAGEAL REFLUX DISEASE WITHOUT 03/05/2017 KENDY SELLERS DO Ot N61.0 MASTITIS WITHOUT ABSCESS 03/05/2017 KENDY SELLERS DO Ot N64.4 MASTODYNIA 03/05/2017 KENDY SELLERS DO Ot T81.4XXA INFECTION FOLLOWING A PROCEDURE, INITIAL 03/05/2017 KENDY SELLERS DO Ot Z87.59 PERSONAL HISTORY OF COMP OF PREG, CHLDBR 03/05/2017 KENDY SELLERS DO Ot Z87.891 PERSONAL HISTORY OF NICOTINE DEPENDENCE 03/05/2017 KENDY SELLERS DO Ot Z90.49 ACQUIRED ABSENCE OF OTHER SPECIFIED PART 03/05/2017 KENDY SELLERS DO Ot Z90.710 ACQUIRED ABSENCE OF BOTH CERVIX AND UTER 03/05/2017 KENDY SELLERS DO Ot Z98.51 TUBAL LIGATION STATUS 03/24/2017 XAVIER GARSIA Ot 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 03/24/2017 XAVIER GARSIA N Ot 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 03/24/2017 XAVIER GARSIA Veena Ot E66.01 MORBID (SEVERE) OBESITY DUE TO EXCESS CA 03/24/2017 XAVIER GARSIA Veena Ot E78.5 HYPERLIPIDEMIA, UNSPECIFIED 03/24/2017 XAVIER GARSIA N Ot 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 03/24/2017 XAVIER GARSIA Veena Ot F31.9 BIPOLAR DISORDER, UNSPECIFIED 03/24/2017 XAVIER GARSIA N Ot I10 ESSENTIAL (PRIMARY) HYPERTENSION 03/24/2017 XAVIER GARSIA N Ot J44.9 CHRONIC OBSTRUCTIVE PULMONARY DISEASE, U 03/24/2017 XAVIER GARSIA N Ot K21.9 GASTRO-ESOPHAGEAL REFLUX DISEASE WITHOUT 03/24/2017 XAVIER GARSIA N Ot Z12.31 ENCNTR SCREEN MAMMOGRAM FOR MALIGNANT NE 03/24/2017 XAVIER GARSIA Veena Ot Z68.41 BODY MASS INDEX (BMI) 40.0-44.9, ADULT 03/24/2017 XAVIER GARSIA N Ot Z79.818 LNG TRM (CRNT) USE OF AGNT AFF ESTROG RE 03/24/2017 XAVIER GARSIA N Ot Z79.899 OTHER [facility] (CURRENT) DRUG THERAPY 03/24/2017 XAVIER GARSIA Veena Ot Z90.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, BILATERAL 05/11/2017 XAVIER GARSIA Veena Ot 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 05/11/2017 XAVIER GARSIA Veena Ot 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 05/11/2017 XAVIER GARSIA N Ot E66.01 MORBID (SEVERE) OBESITY DUE TO EXCESS CA 05/11/2017 XAVIER GARSIA N Ot E78.5 HYPERLIPIDEMIA, UNSPECIFIED 05/11/2017 XAVIER GARSIA N Ot 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 05/11/2017 XAVIER GARSIA N Ot F31.9 BIPOLAR DISORDER, UNSPECIFIED 05/11/2017 XAVIER GARSIA N Ot I10 ESSENTIAL (PRIMARY) HYPERTENSION 05/11/2017 XAVIER GARSIA N Ot J44.9 CHRONIC OBSTRUCTIVE PULMONARY DISEASE, U 05/11/2017 XAVIER GARSIA Ot K21.9 GASTRO-ESOPHAGEAL REFLUX DISEASE WITHOUT 05/11/2017 XAVIER GARSIA Veena Ot Z12.31 ENCNTR SCREEN MAMMOGRAM FOR MALIGNANT NE 05/11/2017 XAVIER GARSIA Veena Ot Z68.41 BODY MASS INDEX (BMI) 40.0-44.9, ADULT 05/11/2017 XAVIER GARSIA Ot Z79.818 LNG TRM (CRNT) USE OF AGNT AFF ESTROG RE 05/11/2017 XAVIER GARSIA N Ot Z79.899 OTHER [employer] (CURRENT) DRUG THERAPY 05/11/2017 XAVIER GARSIA Veena Ot Z90.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, BILATERAL 05/24/2017 XAVIER GARSIA Veena Ot 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 05/24/2017 XAVIER GARSIA Veena Ot 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 05/24/2017 XAVIER GARSIA Veena Ot E66.01 MORBID (SEVERE) OBESITY DUE TO EXCESS CA 05/24/2017 XAVIER GARSIA Veena Ot E78.5 HYPERLIPIDEMIA, UNSPECIFIED 05/24/2017 XAVIER GARSIA Veena Ot 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 05/24/2017 XAVIER GARSIA Veena Ot F31.9 BIPOLAR DISORDER, UNSPECIFIED 05/24/2017 XAVIER GARSIA Veena Ot I10 ESSENTIAL (PRIMARY) HYPERTENSION 05/24/2017 XAVIER GARSIA Veena Ot J44.9 CHRONIC OBSTRUCTIVE PULMONARY DISEASE, U 05/24/2017 XAVIER GARSIA Veena Ot K21.9 GASTRO-ESOPHAGEAL REFLUX DISEASE WITHOUT 05/24/2017 XAVIER GARSIA Veena Ot Z12.31 ENCNTR SCREEN MAMMOGRAM FOR MALIGNANT NE 05/24/2017 XAVIER GARSIA Veena Ot Z68.41 BODY MASS INDEX (BMI) 40.0-44.9, ADULT 05/24/2017 XAVIER GARSIA Ot Z79.818 LNG TRM (CRNT) USE OF AGNT AFF ESTROG RE 05/24/2017 XAVIER GARSIA N Ot Z79.899 OTHER [employer] (CURRENT) DRUG THERAPY 05/24/2017 XAVIER GARSIA N Ot Z90.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, BILATERAL 06/21/2017 XAVIER GARSIA N Ot 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 06/21/2017 XAVIER GARSIA N Ot 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 06/21/2017 XAVIER GARSIA Veena Ot E66.01 MORBID (SEVERE) OBESITY DUE TO EXCESS CA 06/21/2017 XAVIER GARSIA Veena Ot E78.5 HYPERLIPIDEMIA, UNSPECIFIED 06/21/2017 XAVIER GARSIA N Ot 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 06/21/2017 XAVIER GARSIA Veena Ot F31.9 BIPOLAR DISORDER, UNSPECIFIED 06/21/2017 XAVIER GARSIA N Ot I10 ESSENTIAL (PRIMARY) HYPERTENSION 06/21/2017 XAVIER GARSIA Veena Ot J44.9 CHRONIC OBSTRUCTIVE PULMONARY DISEASE, U 06/21/2017 XAVIER GARSIA Veena Ot K21.9 GASTRO-ESOPHAGEAL REFLUX DISEASE WITHOUT 06/21/2017 XAVIER GARSIA Veena Ot Z12.31 ENCNTR SCREEN MAMMOGRAM FOR MALIGNANT NE 06/21/2017 XAVIER GARSIA Veena Ot Z68.41 BODY MASS INDEX (BMI) 40.0-44.9, ADULT 06/21/2017 XAVIER GARSIA Veena Ot Z79.818 LNG TRM (CRNT) USE OF AGNT AFF ESTROG RE 06/21/2017 XAVIER GARSIA Veena Ot Z79.899 OTHER [employer] (CURRENT) DRUG THERAPY 06/21/2017 XAVIER GARSIA Veena Ot Z90.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, BILATERAL 06/22/2017 XAVIER GARSIA Veena Ot 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 06/22/2017 XAVIER GARSIA Veena Ot 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 06/22/2017 XAVIER GARSIA Veena Ot E66.01 MORBID (SEVERE) OBESITY DUE TO EXCESS CA 06/22/2017 XAVIER GARSIA Veena Ot E78.5 HYPERLIPIDEMIA, UNSPECIFIED 06/22/2017 XAVIER GARSIA N Ot 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 06/22/2017 XAVIER GARSIA Veena Ot F31.9 BIPOLAR DISORDER, UNSPECIFIED 06/22/2017 XAVIER GARSIA N Ot I10 ESSENTIAL (PRIMARY) HYPERTENSION 06/22/2017 XAVIER GARSIA Veena Ot J44.9 CHRONIC OBSTRUCTIVE PULMONARY DISEASE, U 06/22/2017 XAVIER GARSIA Veena Ot K21.9 GASTRO-ESOPHAGEAL REFLUX DISEASE WITHOUT 06/22/2017 XAVIER GARSIA Veena Ot Z12.31 ENCNTR SCREEN MAMMOGRAM FOR MALIGNANT NE 06/22/2017 XAVIER GARSIA Veena Ot Z68.41 BODY MASS INDEX (BMI) 40.0-44.9, ADULT 06/22/2017 XAVIER GARSIA Veena Ot Z79.818 LNG TRM (CRNT) USE OF AGNT AFF ESTROG RE 06/22/2017 XAVIER GARSIA Veena Ot Z79.899 OTHER RAILCAR CARPENTER (CURRENT) DRUG THERAPY 06/22/2017 XAVIER GARSIA Veena Ot Z90.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, BILATERAL 06/23/2017 CODY DIEZ WOODWORKING MACHINE SETTER Ot 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 06/23/2017 CODY DIEZ WOODWORKING MACHINE SETTER Ot 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 06/23/2017 CODY DIEZP Ot Z12.31 ENCNTR SCREEN MAMMOGRAM FOR MALIGNANT NE 06/23/2017 CODY DIEZ WOODWORKING MACHINE SETTER Ot Z79.818 LNG TRM (CRNT) USE OF AGNT AFF ESTROG RE 06/23/2017 CODY DIEZ WOODWORKING MACHINE SETTER Ot Z90.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, BILATERAL 06/23/2017 XAVIER GARSIA Veena Ot 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 06/23/2017 XAVIER GARSIA Veena Ot 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 06/23/2017 XAVIER GARSIA Veena Ot E66.01 MORBID (SEVERE) OBESITY DUE TO EXCESS CA 06/23/2017 ADY CATSACHI Veena Ot E78.5 HYPERLIPIDEMIA, UNSPECIFIED 06/23/2017 ADY CATSACHI Veena Ot 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 06/23/2017 ADY, CATSACHI Veena Ot F31.9 BIPOLAR DISORDER, UNSPECIFIED 06/23/2017 ADY, XAVIER Curiel Ot I10 ESSENTIAL (PRIMARY) HYPERTENSION 06/23/2017 ADY, XAVIER Curiel Ot J44.9 CHRONIC OBSTRUCTIVE PULMONARY DISEASE, U 06/23/2017 ADY, XAVIER Curiel Ot K21.9 GASTRO-ESOPHAGEAL REFLUX DISEASE WITHOUT 06/23/2017 ADYXAVIER ALCOCER Veena Ot Z12.31 ENCNTR SCREEN MAMMOGRAM FOR MALIGNANT NE 06/23/2017 XAVIER GARSIA Veena Ot Z68.41 BODY MASS INDEX (BMI) 40.0-44.9, ADULT 06/23/2017 XAVIER GARSIA Veena Ot Z79.818 LNG TRM (CRNT) USE OF AGNT AFF ESTROG RE 06/23/2017 XAVIER GARSIA Veena Ot Z79.899 OTHER RAILCAR CARPENTER (CURRENT) DRUG THERAPY 06/23/2017 XAVIER GARSIA Veena Ot Z90.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, BILATERAL 06/24/2017 XAVIER GARSIA Veena Ot 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 06/24/2017 ADY XAVIER Curiel Ot 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 06/24/2017 XAVIER GARSIA Veena Ot E66.01 MORBID (SEVERE) OBESITY DUE TO EXCESS CA 06/24/2017 ADY XAVIER Curiel Ot E78.5 HYPERLIPIDEMIA, UNSPECIFIED 06/24/2017 ADY CATSACHI Veena Ot 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 06/24/2017 XAVIER GARSIA Veena Ot F31.9 BIPOLAR DISORDER, UNSPECIFIED 06/24/2017 XAVIER GARSIA Veena Ot I10 ESSENTIAL (PRIMARY) HYPERTENSION 06/24/2017 ADY CATSACHI Veena Ot J44.9 CHRONIC OBSTRUCTIVE PULMONARY DISEASE, U 06/24/2017 XAVIER GARSIA Veena Ot K21.9 GASTRO-ESOPHAGEAL REFLUX DISEASE WITHOUT 06/24/2017 XAVIER GARSIA Veena Ot Z12.31 ENCNTR SCREEN MAMMOGRAM FOR MALIGNANT NE 06/24/2017 XAVIER GARSIA Veena Ot Z68.41 BODY MASS INDEX (BMI) 40.0-44.9, ADULT 06/24/2017 XAVIER GARSIA Veena Ot Z79.818 LNG TRM (CRNT) USE OF AGNT AFF ESTROG RE 06/24/2017 XAVIER GARSIA Veena Ot Z79.899 OTHER RAILCAR CARPENTER (CURRENT) DRUG THERAPY 06/24/2017 XAVIER GARSIA Veena Ot Z90.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, BILATERAL 07/06/2017 ALONDRA ACOSTA DO Ot K80.50 CALCULUS OF BILE DUCT W/O CHOLANGITIS OR Procedures Code Description [place] [address] BRONCHODILATION PRE/POST 02/23/2012 02472 RESPIRATORY FLOW VOLUME LOOP 02/23/2012 27471 SPIROMETRY 02/24/2012 NEURO VIOLET WAYLONBALTAZAR 05/01/2012 OphthalmLeno Dyer 06/30/2012 98295 EXCISION BENIGN LESION 0.6- 1 cm (spcify location in [facility] description) 07/04/2012 50759 EXCISION BENIGN LESION 1.1- 2 cm (specify location in [facility] descriiption) 07/04/2012 45572 MRI BRAIN W/O & W/DYE 07/04/2012 ALBERTO WILKERSON 07/04/2012 10215 MRI BRAIN W/O CONTRAST 07/05/2012 92685 TRIGGER POINT INJ/1-2 MUS 07/21/2012 49639 ROUTINE VENIPUNCTURE 08/25/2012 73168 CMP 08/25/2012 [id number] GFR CALC (RESULT ONLY) 08/25/2012 28351 VITAMIN D 25-HYDROXY (D2,D3 , TOTAL) 08/25/2012 55660 TRIGGER POINT INJ/1-2 MUS 09/07/2012 34248 A1C (IN-HOUSE) 09/07/2012 55733 OXIMETRY - OVERNIGHT 11/08/2012 OphthalmLg Durán 12/08/2012 G0008 FLU ADMINISTRATION ( MEDICARE ONLY) 01/11/2013 UROLOGY LIZZIE CONTRERAS 01/27/2013 38198 OXIMETRY 02/27/2013 18540 THERAPUTIC INJ SQ/IM 02/27/2013 J1050 DEPO PROVERA 02/27/2013 40062 URINE TEST (IN- HOUSE) 02/27/2013 53882 ROUTINE VENIPUNCTURE 04/07/2013 G0438 PPPS, INITIAL VISIT 04/07/2013 9410021 GFR CALC (RESULT ONLY) 04/07/2013 05696 CMP 04/07/2013 21520 ROUTINE VENIPUNCTURE 05/22/2013 J1050 DEPO PROVERA 05/22/2013 62103 THERAPUTIC INJ SQ/IM 05/22/2013 99138 CMP 05/22/2013 7888109 GFR CALC (RESULT ONLY) 05/22/2013 18248 ROUTINE VENIPUNCTURE 08/02/2013 40634 UA W/ CULTURE IF INDICATED 08/02/2013 3678126 GFR CALC (RESULT ONLY) 08/02/2013 77561 CMP 08/02/2013 09396 LIPID PANEL 08/02/2013 90873 CULTURE URINE 08/03/2013 36662 ROUTINE VENIPUNCTURE 09/15/2013 40673 THERAPUTIC INJ SQ/IM 09/15/2013 J1050 DEPO PROVERA 09/15/2013 25196 CMP 09/15/2013 4576110 GFR CALC (RESULT ONLY) 09/15/2013 93485 ROUTINE VENIPUNCTURE 12/08/2013 72762 CMP 12/08/2013 21050 TSH 12/08/2013 G0008 FLU ADMINISTRATION ( MEDICARE ONLY) 01/08/2014 05144 ROUTINE VENIPUNCTURE 03/30/2014 IRGROUP IRON GROUP (IRON,TIBC, FERRITIN) 03/30/2014 90068 PSYCH DIAGNOSTIC EVALUATION 03/30/2014 67571 CBC 03/30/2014 [id number] GFR CALC (RESULT ONLY) 03/30/2014 17895 CMP 03/30/2014 61621 IRON SERUM 03/30/2014 81333 IRON BNDNG CAP 03/30/2014 38813 TSH 03/30/2014 38079 FERRITIN 03/30/2014 08343 US HEAD (SOFT TISSUE) ULTRASOUND, HEAD 04/10/2014 25969 UA W/ CULTURE IF INDICATED 07/10/2014 88361 THERAPUTIC INJ SQ/IM 07/18/2014 J1050 DEPO PROVERA 07/18/2014 08426 TEST, URINE (IN- HOUSE) 07/18/2014 Results Test Result Range Complete blood count (CBC) with automated white blood cell (WBC) differential - 03/05/17 22:20 Blood leukocytes automated count (number/volume) 11.1 10*3/uL 4.3-11.0 Blood erythrocytes automated count (number/volume) 3.94 10*6/uL 4.35-5.85 Venous blood hemoglobin measurement (mass/volume) 10.5 [...] Automated blood platelet mean volume measurement 8.6 [foz_us] 7.4-10.4 Automated blood neutrophils/100 leukocytes 53 % [...] blood basophil count (count/volume) 0.1 10*3/uL 0.0-0.1 Blood lactic acid measurement (moles/volume) - 03/05/17 22:20 Blood lactic acid measurement (moles/volume) 1.05 mmol/L 0.50-2.00 Comprehensive metabolic panel - 03/05/17 22:20 Serum or plasma sodium measurement (moles/volume) 140 mmol/L 135-145 Serum or plasma potassium measurement (moles/volume) 3.7 mmol/L 3.6-5.0 Serum or plasma chloride measurement (moles/volume) 105 mmol/L 98-107 Carbon dioxide 23 mmol/L 21-32 Serum or plasma anion gap determination (moles/volume) 12 mmol/L 5-14 Serum or plasma urea nitrogen measurement (mass/volume) 11 mg/dL 7-18 Serum or plasma creatinine measurement (mass/volume) 1.00 mg/dL 0.60-1.30 Serum or plasma urea nitrogen/creatinine mass ratio 11 NRG Serum or plasma creatinine measurement with calculation of estimated glomerular filtration rate 59 NRG Serum or plasma glucose measurement (mass/volume) 97 mg/dL 70-105 Serum or plasma calcium measurement (mass/volume) 9.1 mg/dL 8.5-10.1 Serum or plasma total bilirubin measurement (mass/volume) 0.2 mg/dL 0.1-1.0 Serum or plasma alkaline phosphatase measurement (enzymatic activity/volume) 95 U/L 40-136 Serum or plasma aspartate aminotransferase measurement (enzymatic activity/ volume) 17 U/L 5-34 Serum or plasma alanine aminotransferase measurement (enzymatic activity/volume ) 31 U/L 0-55 Serum or plasma protein measurement (mass/volume) 7.1 g/dL 6.4-8.2 Serum or plasma albumin measurement (mass/volume) 3.8 g/dL 3.2-4.5 Bacterial blood culture - 03/05/17 22:20 QUANTITY OF GROWTH . NRG Bacterial blood culture SEE COMMEN NRG Bacterial blood culture - 03/05/17 22:37 Bacterial blood culture NG NRG Gram stain microscopy - 03/05/17 23:10 GRAM STAIN RESULT MODERATE # WBC'S, NO BACTERIA OBSERVED NRG Bacterial body fluid culture - 03/05/17 23:10 Bacterial body fluid culture NG NRG THYROID PEROXIDASE ANTIBODIES - 05/04/17 08:33 THYROID PEROXIDASE ANTIBODIES <1 IU/mL <9 THYROID ANALYZER - 06/03/17 11:19 TSH 1.54 mIU/L NRG CULTURE, URINE - 06/07/17 15:40 CULTURE, URINE, ROUTINE SEE NOTE NRG Encounters ACCT No. Visit Date/Time Discharge Status Pt. Type Provider Facility Loc./Unit Complaint [id number] 08/03/2014 10:10:00 08/03/2014 23:59:59 CLS Outpatient PHILIPPE SALGUERO DO [id number] 07/19/2014 11:04:00 07/19/2014 23:59:59 CLS Outpatient BOY LUND APRN [id number] 07/18/2014 14:08:00 07/18/2014 23:59:59 CLS Outpatient PHILIPPE SALGUERO DO [id number] 07/10/2014 13:29:00 07/10/2014 23:59:59 CLS Outpatient CHRIS WINTER APRN [id number] 06/29/2014 08:24:00 06/29/2014 23:59:59 CLS Outpatient PHILIPPE SALGUERO DO [id number] 04/10/2014 11:18:00 04/10/2014 23:59:59 CLS Outpatient PHILIPPE SALGUERO DO [id number] 03/30/2014 14:55:00 03/30/2014 23:59:59 CLS Outpatient AJCKIE PACHECO [id number] 02/09/2014 09:53:00 02/09/2014 23:59:59 CLS Outpatient PHILIPPE SALGUERO DO [id number] 02/08/2014 11:58:00 02/08/2014 23:59:59 CLS Outpatient BOY LUND APRN [facility] [id number] 02/08/2014 11:58:00 02/08/2014 23:59:59 CLS Outpatient BOY LUND APRN [facility] [id number] 01/09/2014 11:47:00 01/09/2014 23:59:59 CLS Outpatient BOY LUND APRN [facility] [id number] 01/09/2014 11:47:00 01/09/2014 23:59:59 CLS Outpatient BOY LUND APRN [facility] [id number] 01/08/2014 10:59:00 01/08/2014 23:59:59 CLS Outpatient SALGUERO DOPHILIPPE [id number] 12/08/2013 13:56:00 12/08/2013 23:59:59 CLS Outpatient PHILIPPE SALGUERO DO [id number] 12/07/2013 10:42:00 12/07/2013 23:59:59 CLS Outpatient BOY LUND APRN [employer] [id number] 10/31/2013 14:19:00 10/31/2013 23:59:59 CLS Outpatient BOY LUND APRN [facility] [id number] 10/31/2013 14:19:00 10/31/2013 23:59:59 CLS Outpatient BOY LUND APRN [employer] [id number] 10/16/2013 11:01:00 10/16/2013 23:59:59 CLS Outpatient PHILIPPE SALGUERO DO [id number] 10/06/2013 11:06:00 10/06/2013 23:59:59 CLS Outpatient WHITE DEEDEE JACOBSON [id number] 09/27/2013 16:06:00 09/27/2013 23:59:59 CLS Outpatient BOY LUND APRN [employer] [id number] 09/27/2013 16:06:00 09/27/2013 23:59:59 CLS Outpatient ASHELY SPANGLERVeena BOY J [id number] 09/19/2013 00:00:00 09/19/2013 23:59:59 CLS Outpatient WHITE DDSDEEDEE [id number] 09/15/2013 09:35:00 09/15/2013 23:59:59 CLS Outpatient PHILIPPE SALGUERO DO [id number] 09/15/2013 09:35:00 09/15/2013 23:59:59 CLS Outpatient SALGUERO DOPHILIPPE [id number] 09/07/2013 12:40:00 09/07/2013 23:59:59 CLS Outpatient BOY LUND APRN [id number] 09/01/2013 10:36:00 09/01/2013 23:59:59 CLS Outpatient WHITE DDSDEEDEE [place] [id number] 08/07/2013 09:51:00 08/07/2013 23:59:59 CLS Outpatient SALGUERO DOPHILIPPE Hanna [id number] 08/02/2013 12:13:00 08/02/2013 23:59:59 CLS Outpatient NARAYANAN PAAgueda MAEVE Maxim [id number] 07/25/2013 11:41:00 07/25/2013 23:59:59 CLS Outpatient WHITE DDS, DEEDEE Hawthorne [id number] 07/03/2013 16:31:00 07/03/2013 23:59:59 CLS Outpatient SALGUERO DOPHILIPPE Hanna [id number] 05/22/2013 13:20:00 05/22/2013 23:59:59 CLS Outpatient SALGUERO DOPHILIPPE Hanna [id number] 05/22/2013 13:20:00 05/22/2013 23:59:59 CLS Outpatient SALGUERO DOPHILIPPE Hanna [id number] 04/07/2013 12:55:00 04/07/2013 23:59:59 CLS Outpatient SALGUERO DOPHILIPPE Hanna [id number] 04/07/2013 12:55:00 04/07/2013 23:59:59 CLS Outpatient SALGUERO DOPHILIPPE Hanna [id number] 02/27/2013 09:52:00 02/27/2013 23:59:59 CLS Outpatient SALGUERO DOTANISHARomán Ferreira [id number] 02/27/2013 09:52:00 02/27/2013 23:59:59 CLS Outpatient SALGUERO DOTANISHARomán Fererira [id number] 01/27/2013 13:52:00 01/27/2013 23:59:59 CLS Outpatient SALGUERO DOTANISHARomán Ferreira [id number] 01/11/2013 09:50:00 01/11/2013 23:59:59 CLS Outpatient SALGUERO DOTANISHARomán Ferreira [id number] 07/21/2012 09:13:00 07/21/2012 23:59:59 CLS Outpatient SALGUERO DO PHILIPPE Ferreira [id number] 07/04/2012 17:00:00 07/04/2012 23:59:59 CLS Outpatient SALGUERO DO, PHILIPPE K [id number] 05/27/2012 16:26:00 05/27/2012 23:59:59 CLS Outpatient PHILIPPE SALGUERO DO [id number] 04/29/2012 15:48:00 04/29/2012 23:59:59 CLS Outpatient [id number] 04/06/2012 10:14:00 04/06/2012 23:59:59 CLS Outpatient LOBO CHERY DDS [id number] 03/08/2012 09:54:00 03/08/2012 23:59:59 CLS Outpatient [id number] 02/04/2012 08:39:00 02/04/2012 23:59:59 CLS Outpatient PHILIPPE SALGUERO DO [id number] 12/08/2012 10:16:00 Document Registration [id number] 12/08/2012 10:16:00 Document Registration [id number] 11/05/2012 09:28:00 Document Registration [id number] 10/10/2012 10:09:00 Document Registration [id number] 10/06/2012 10:28:00 Document Registration [id number] 09/07/2012 11:04:00 Document Registration [id number] 08/25/2012 13:39:00 Document Registration [id number] 07/21/2012 09:13:00 Document Registration [id number] 07/05/2017 07:41:00 07/05/2017 23:59:59 CLS Outpatient ALONDRA ACOSTA DO [facility] RAD CHOLEDOCHOLITHIASIS [id number] 06/23/2017 12:25:00 06/23/2017 23:59:59 CLS Outpatient XAVIER GARSIA [facility] ONC [id number] 03/23/2017 12:53:00 06/21/2017 00:01:00 DIS Outpatient XAVIER GARSIA [facility] ONC [id number] 03/05/2017 22:04:00 03/05/2017 23:41:00 DIS Emergency KENDY SELLERS DO [facility] ER RT BREAST PAIN,FEVER,POST MASTECTOMY [id number] 02/11/2017 18:47:00 02/11/2017 19:56:00 DIS Emergency KENDY SELLERS DO [facility] ER RASH [id number] 12/01/2016 12:31:00 01/01/2017 13:08:00 DIS Outpatient XAVIER GARSIA Veena [facility] ONC [id number] 07/28/2016 12:09:00 10/26/2016 00:01:00 DIS Outpatient XAVIER GARSIA [facility] ONC [id number] 09/27/2016 13:43:00 09/27/2016 14:58:00 DIS Emergency RADHA GEORGES MD [facility] ER R KNEE PAIN [id number] 08/06/2016 09:56:00 08/06/2016 23:59:59 CLS Outpatient CODY DIEZ [facility] RAD C50.112,Z79.818, Z12.31 [id number] 03/19/2016 11:42:00 06/17/2016 00:01:00 DIS Outpatient ADYXAVIER ALCOCER Veena [facility] ONC [id number] 11/19/2015 08:22:00 01/20/2016 11:04:00 DIS Outpatient JARRED CASTRO, ROCÍO [facility] ONC [id number] 10/01/2015 08:40:00 11/12/2015 11:12:00 DIS Outpatient ANJUM BLACK MD [facility] ONC [id number] 09/18/2015 08:22:00 09/18/2015 12:55:00 DIS Outpatient ARUNA TERRELL MD [facility] SDC HISTORY OR BREAST CANCER [id number] 09/12/2015 05:36:00 09/12/2015 10:45:00 DIS Outpatient ARUNA TERRELL MD [facility] PREOP HISTORY OF BREAST CANCER [id number] 08/13/2015 14:40:00 08/13/2015 23:59:59 CLS Preadmit CODY DIEZ [facility] ONC [id number] 07/25/2015 12:59:00 08/07/2015 00:01:00 DIS Outpatient ANJUM BLACK MD [facility] ONC [id number] 08/01/2015 06:55:00 08/01/2015 11:05:00 DIS Outpatient JERRICA GRANADO MD [facility] BREAST CANCER LEFT BREAST [id number] 07/30/2015 08:12:00 07/30/2015 08:29:00 DIS Outpatient JERRICA GRANADO MD [facility] PREOP BREAST CANCER LEFT BREAST [id number] 07/23/2015 14:15:00 07/23/2015 23:59:59 CLS Outpatient CODY DEIZ [facility] ONC [id number] 06/29/2015 00:19:00 06/29/2015 03:29:00 DIS Emergency MAEVE CHANEL MD [facility] ER BLOOD IN STOOL [id number] 05/23/2015 06:25:00 05/24/2015 11:00:00 DIS Outpatient JERRICA GRANADO MD [facility] CARD LEFT BREAST CANCER [id number] 05/21/2015 08:25:00 05/21/2015 23:59:59 CLS Outpatient ANJUM BLACK MD [facility] RAD BREAST CANCER INITAL STAGING [id number] 05/14/2015 06:00:00 05/14/2015 10:07:00 DIS Outpatient LIZZIE CONTRERAS MD [facility] OVERACTIVE BLADDER; VAGINAL LESION; VAGINAL FB [id number] 05/09/2015 05:49:00 05/09/2015 23:59:59 CLS Outpatient LIZZIE CONTRERAS MD [facility] PREOP OVERACTIVE BLADDER; VAGINAL LESION; VAGIONAL FB [id number] 04/17/2015 11:31:00 04/17/2015 23:59:59 CLS Outpatient ELIZABETH LEYVA APRN [facility] RAD BREAST MASS [id number] 12/06/2014 17:30:00 12/07/2014 18:30:00 DIS Outpatient JERRICA GRANADO MD [facility] ACUTE APPENDICITIS [id number] 12/06/2014 13:26:00 12/06/2014 23:59:59 CLS Outpatient MYNOR MAGALLANES DO [facility] RAD ABDOMINAL PAIN [id number] 12/06/2014 13:18:00 12/06/2014 23:59:59 CLS Preadmit MYNOR MAGALLANES DO [facility] RAD ABD PAIN [id number] 12/06/2014 11:19:00 12/06/2014 12:38:00 DIS Emergency ALONSO PARRA MD [facility] ER RIGHT SIDE ABD PAIN [id number] 11/27/2014 06:11:00 11/27/2014 18:25:00 DIS Outpatient MYNOR MAGALLANES DO [facility] ABNORMAL UTERINE BLEEDING ; FAILED NOVASURE [id number] 11/23/2014 07:02:00 11/23/2014 23:59:59 CLS Outpatient MYNOR MAGALLANES DO [facility] PREOP ABNORMAL UTERINE BLEEDING; FAILED NOVASURE [id number] 11/20/2014 07:20:00 11/20/2014 11:35:00 DIS Outpatient MYNOR MAGALLANES DO [facility] DYSFUNCTIONAL UTERINE BLEEDING [id number] 11/19/2014 08:55:00 11/19/2014 23:59:59 CLS Outpatient MYNOR MAGALLANES DO [facility] PREOP DYSFUNCTIONAL UTERINE BLEEDING [id number] 07/12/2014 09:38:00 07/12/2014 23:59:59 CLS Outpatient CHRIS WINTER APRN [facility] RAD SCREENING,DUB [id number] 02/04/2014 00:09:00 02/04/2014 00:40:00 DIS Emergency RONEL GRAVES DO [facility] ER [id number] 05/17/2013 06:36:00 05/18/2013 13:43:00 DIS Outpatient LIZZIE CONTRERAS MD [facility] [id number] 05/15/2013 09:28:00 05/15/2013 23:59:59 CLS Outpatient LIZZIE CONTRERAS MD [facility] PREOP [id number] 10/01/2012 11:14:00 10/01/2012 23:59:59 CLS Outpatient [id number] 05/22/2015 11:29:00 Document Registration [id number] 04/30/2014 10:38:00 Document Registration [id number] 04/30/2014 10:38:00 Document Registration [id number] 04/30/2014 10:37:00 Document Registration [id number] 03/03/2012 12:43:00 Document Registration [id number] 11/30/2011 15:34:00 Document Registration [id number] 04/07/2011 13:21:00 Document Registration [id number] 03/24/2011 11:32:00 Document Registration [id number] 12/26/2009 08:45:00 Document Registration [id number] 12/18/2009 08:51:00 Document Registration [id number] 12/03/2009 16:08:00 Document Registration [id number] 11/29/2009 08:46:00 Document Registration [id number] 11/21/2009 07:39:00 Document Registration [id number] 08/22/2009 11:54:00 Document Registration [id number] 12/20/2008 12:16:00 Document Registration [id number] 11/30/2008 08:21:00 Document Registration [id number] 11/19/2008 16:36:00 Document Registration [id number] 11/09/2008 08:08:00 Document Registration [id number] 12/12/2014 07:48:37 [place] Document Registration [id number] 08/04/2017 15:00:00 08/04/2017 23:59:59 [facility] Outpatient DUSTIN BALESHanna [facility] [id number] 06/07/2017 14:20:00 Document Registration [id number] 06/03/2017 10:20:00 Document Registration [id number] 05/04/2017 08:20:00 Document Registration
[2017-08-08] MEDS ORDERED: KETOROLAC 30 MG/ML VIAL IVP ONE (01:30)
[2017-08-08] MEDS ORDERED: ONDANSETRON 4 MG/2 ML (SDV) Z0FRAN IVP ONE (01:30)
[2017-08-08 02:32] LABS: BILIRUBIN,URINE NEGATIVE (NEGATIVE); CLARITY,URINE SLIGHTLY CLOUDY; COLOR,URINE YELLOW; GLUCOSE, URINE (UA) NEGATIVE (NEGATIVE); KETONES,URINE NEGATIVE (NEGATIVE); LEUKOCYTE ESTERASE ,URINE 3+ (NEGATIVE); NITRITE,URINE NEGATIVE (NEGATIVE); PH,URINE 7 (5-9); PROTEIN,URINE 1+ (NEGATIVE); UROBILINOGEN,URINE 4 MG/DL (NORMAL)
[2017-08-08 02:40] LABS: BACTERIA,URINE MODERATE /HPF
[2017-08-08 02:41] LABS: BASOPHILS # (AUTO) 0.1 10^3/uL (0.0-0.1); BASOPHILS % (AUTO) 1 % (0-10); EOSINOPHILS # (AUTO) 0.5 10^3/uL (0.0-0.3); EOSINOPHILS % (AUTO) 6 % (0-10); HEMATOCRIT 37 % (35-52); HEMOGLOBIN 11.5 G/DL (11.5-16.0); LYMPHOCYTES # (AUTO) 2.9 X 10^3 (1.0-4.0); LYMPHOCYTES % (AUTO) 31 % (12-44); MEAN CORPUSCULAR HEMOGLOBIN 26 PG (25-34); MEAN CORPUSCULAR HGB CONC 31 G/DL (32-36); MEAN CORPUSCULAR VOLUME 83 FL (80-99); MEAN PLATELET VOLUME 8.8 FL (7.4-10.4); MONOCYTES # (AUTO) 0.7 X 10^3 (0.0-1.0); MONOCYTES % (AUTO) 8 % (0-12); NEUTROPHILS # (AUTO) 5.2 X 10^3 (1.8-7.8); NEUTROPHILS % (AUTO) 55 % (42-75); PLATELET COUNT 353 10^3/uL (130-400); RED CELL DISTRIBUTION WIDTH 15.6 % (10.0-14.5); WHITE BLOOD COUNT 9.4 10^3/uL (4.3-11.0)
[2017-08-08 03:02] LABS: ALANINE AMINOTRANSFERASE 37 U/L (0-55); ALBUMIN 4.1 GM/DL (3.2-4.5); ALKALINE PHOSPHATASE 91 U/L (40-136); BILIRUBIN,TOTAL 0.4 MG/DL (0.1-1.0); BUN/CREATININE RATIO 10; CALCIUM 9.4 MG/DL (8.5-10.1); CARBON DIOXIDE 24 MMOL/L (21-32); CHLORIDE 108 MMOL/L (98-107); CREATINE KINASE 761 U/L (29-168); CREATININE SERUM 1.05 MG/DL (0.60-1.30); GFR ESTIMATED 55; GLUCOSE 103 MG/DL (70-105); MAGNESIUM 2.6 MG/DL (1.8-2.4); POTASSIUM 3.8 MMOL/L (3.6-5.0); SODIUM 143 MMOL/L (135-145); TOTAL PROTEIN 6.7 GM/DL (6.4-8.2)
[2017-08-08] MEDS ORDERED: NS IV 1000 ML 1,000 ML IV ONE (03:35)
[2017-08-08] MEDS ORDERED: cefTRIAXone INJECTION 1,000 MG in NS (IVPB) 100 ML IV ONE (03:45)
[2017-08-08] MEDS ORDERED: CEPH-507 PO (03:46)
--- NOTE | 2017-08-08 03:46 | ED General ---
General Chief Complaint: Abdominal/GI Problems Stated Complaint: VOMITING WITH MEDS Nursing Triage Note: pt presents to er with complaint of vomiting after taking her pills. states she is unable to take all of her prescribed medicines with out vomiting. Nursing Sepsis Screen: No Definite Risk Source of Information: Patient Exam Limitations: No Limitations History of Present Illness Date Seen by Provider: Aug 08, 2017 Time Seen by Provider: 01:10 Initial Comments This 52-year-old woman presents to the emergency room with several complaints. She reports that since 2014 she has been having difficulty with nausea caused by her medications. This has been worse recently. She also reports some occasional drooling. She has also had some intermittent chest pain and left arm pain. She also has pain in her shoulder girdle, back, and legs. None of these problems are acute. She denies any chest pain at present. She reports exacerbation of chronic symptoms. She was prescribed Zofran which she has at home but has not been using. Allergies and Home Medications Allergies Coded Allergies: fluoxetine (Unverified Allergy, Mild, 03/05/17) zolpidem (Verified Allergy, Unknown, "MAKES ME ANGRY LIKE A BEAR", 05/09/15 ) fluticasone (Verified Adverse Reaction, Unknown, DOESN'T WORK, 05/09/15) gabapentin (Verified Adverse Reaction, Unknown, NOT EFFECTIVE, 05/09/15) salmeterol (Verified Adverse Reaction, Unknown, DOESN'T WORK, 05/09/15) Uncoded Allergies: PROPANOLOL (Adverse Reaction, Unknown, NOT EFFECTIVE, 05/09/15) Home Medications Amitriptyline Hcl 100 Mg Tablet, 200 MG PO HS, (Reported) TAKE 2 (100MG) TABS Budesonide/Formoterol Fumarate 10.2 Gm Hfa.aer.ad, 2 PUFF IH BID, (Reported) Cephalexin 500 Mg Capsule, 500 MG PO QID Prescribed by: MAEVE HARRISON on 08/08/17 0346 Clindamycin HCl 300 Mg Capsule, 300 MG PO QID Prescribed by: KENDY SELLERS on 03/05/172318 Famotidine 40 Mg Tablet, 40 MG PO DAILY Prescribed by: KENDY SELLERS on 02/11/171946 Hydroxyzine Pamoate 50 Mg Capsule, 50 MG PO Q6H Prescribed by: KENDY SELLERS on 02/11/171946 Lactobacillus Acidophilus 1 Each Capsule, 2 EACH PO QID Prescribed by: KENDY SELLERS on 03/05/172318 Mometasone Furoate 15 Gm Cream..g., 0 TP TID Prescribed by: KENDY SELLERS on 02/11/171946 Mometasone/Formoterol 13 Gm Hfa.aer.ad, 1 PUFF IH BID PRN for SHORTNESS OF BREATH, (Reported) PRN SOB Patient Home Medication List Home Medication List Reviewed: Yes Review of Systems Constitutional: no symptoms reported EENTM: no symptoms reported Respiratory: no symptoms reported Cardiovascular: no symptoms reported Gastrointestinal: see HPI Genitourinary: no symptoms reported Musculoskeletal: see HPI Skin: no symptoms reported Psychiatric/Neurological: No Symptoms Reported Hematologic/Lymphatic: No Symptoms Reported Past Eamzlvi-Whvczd-Mgapzm Hx Patient Social History Alcohol Use: Occasionally Uses Recreational Drug Use: No Smoking Status: Former Smoker Type Used: Cigarettes Former Smoker, Quit: Apr 19, 2005 Recent Foreign Travel: No Contact w/Someone Who Travel: No Recent Infectious Disease Expo: No Recent Hopitalizations: No Immunizations Up To Date Tetanus Booster (TDap): More than 5yrs Date of Pneumonia Vaccine: Jun 21, 2013 Date of Influenza Vaccine: Jan 17, 2015 Seasonal Allergies Seasonal Allergies: Yes Past Medical History Surgeries: Yes Appendectomy, Bladder Surgery, Breast (mastectomy), Section, Hysterectomy, Tubal Ligation Respiratory: Yes (USES O2 AT HOME PRN) COPD Cardiac: Yes Hypertension Neurological: Yes (restless leg syndrome) 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 Disorders: Yes Female 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 Disorders: Menstrual 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 Sexually Transmitted Disease: No HIV/AIDS: No Genitourinary: Yes Bladder Infection, UTI-Chronic Gastrointestinal: Yes Gastroesophageal Reflux, Esophagitis, Hiatal Hernia Musculoskeletal: Yes (BULGING DISK IN BACK; RESTLESS LEG SYNDROME) Degenerate Disk Disease, Arthritis, Chronic Back Pain Endocrine: No HEENT: Yes Cataract Cancer: Yes Breast Did You Recieve Any Treatments: Yes What Type of Treatment Did You: Surgical Intervention Psychosocial: Yes (EXTENSIVE PSYCH ISSUES) ADD/ADHD, Sleep Difficulties, Anxiety, Suicide Attempts, Bipolar, Depression Integumentary: Yes (YEAST INFECTION UNDER ABDOMINAL FOLD) Blood Disorders: No Adverse Reaction/Blood Tranf: No Family Medical History Cancer GRANDPARENTS Congestive heart failure GRANDPARENTS Family history: Cardiovascular disease GRANDPARENTS Family history: Hypertension GRANDPARENTS Heart disease GRANDPARENTS Myocardial infarction GRANDPARENTS Stroke 03 MOTHER, Onset:60 years & older No Family History of: Abdominal aortic aneurysm Family history: Allergy Family history: Alzheimer's disease Family history: Asthma Family history: Diabetes mellitus Family history: Gastrointestinal disease Family history: Thyroid disorder Hereditary disease Seizure disorder Physical Exam Vital Signs Vital Signs - First Documented 08/08/17 00:26 Temp 98.0 Pulse 100 Resp 20 B/P (MAP) 140/102 (115) Pulse Ox 96 O2 Delivery Room Air Capillary Refill : Less Than 3 Seconds General Appearance: No Apparent Distress, WD/WN HEENT: PERRL/EOMI, Normal ENT Inspection, Pharynx Normal Neck: Normal Inspection Respiratory: Lungs Clear, Normal Breath Sounds, No Accessory Muscle Use, No Respiratory Distress Cardiovascular: Regular Rate, Rhythm, No Edema, No Murmur Gastrointestinal: Normal Bowel Sounds, Non Tender, Soft Extremity: Normal Inspection, No Pedal Edema Neurologic/Psychiatric: Alert, Oriented x3, No Motor/Sensory Deficits, Normal Mood/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, 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 Norm as Tested Skin: Normal Color, Warm/Dry Progress/Results/Core Measures Suspected Sepsis Recent Fever Within 48 Hours: No Infection Criteria Present: None New/Unexplained Altered Menta: No Sepsis Screen: No Definite Risk SIRS Temperature:98.0 Pulse: 100 Respiratory Rate: 20 Laboratory Tests 08/08/17 02:37: White Blood Count 9.4 Blood Pressure 140 /102 Mean: 115 Laboratory Tests 08/08/17 02:37: Creatinine 1.05, Platelet Count 353, Total Bilirubin 0.4 Results/Orders Lab Results Laboratory Tests Test 08/08/17 02:22 08/08/17 02:37 Range/Units Urine Color YELLOW Urine Clarity SLIGHTLY CLOUDY Urine pH 7 5-9 Urine Specific [place] 1.010 L 1.016-1.022 Urine Protein 1+ H NEGATIVE Urine Glucose (UA) NEGATIVE NEGATIVE Urine Ketones NEGATIVE NEGATIVE Urine Nitrite NEGATIVE NEGATIVE Urine Bilirubin NEGATIVE NEGATIVE Urine Urobilinogen 4 H NORMAL MG/DL Urine Leukocyte Esterase 3+ H NEGATIVE Urine RBC (Auto) NEGATIVE NEGATIVE Urine RBC NONE /HPF Urine WBC 10-25 H /HPF Urine Squamous Epithelial Cells 2-5 /HPF Urine Crystals NONE /LPF Urine Bacteria MODERATE H /HPF Urine Casts NONE /LPF Urine Mucus NEGATIVE /LPF Urine Culture Indicated YES White Blood Count 9.4 4.3-11.0 10^3/uL Red Blood Count 4.40 4.35-5.85 10^6/uL Hemoglobin 11.5 11.5-16.0 G/DL Hematocrit 37 35-52 % Mean Corpuscular Volume 83 80-99 FL Mean Corpuscular Hemoglobin 26 25-34 PG Mean Corpuscular Hemoglobin Concent 31 L 32-36 G/DL Red Cell Distribution Width 15.6 H 10.0-14.5 % Platelet Count 353 130-400 10^3/uL Mean Platelet Volume 8.8 7.4-10.4 FL Neutrophils (%) (Auto) 55 42-75 % Lymphocytes (%) (Auto) 31 12-44 % Monocytes (%) (Auto) 8 0-12 % Eosinophils (%) (Auto) 6 0-10 % Basophils (%) (Auto) 1 0-10 % Neutrophils # (Auto) 5.2 1.8-7.8 X 10^3 Lymphocytes # (Auto) 2.9 1.0-4.0 X 10^3 Monocytes # (Auto) 0.7 0.0-1.0 X 10^3 Eosinophils # (Auto) 0.5 H 0.0-0.3 10^3/uL Basophils # (Auto) 0.1 0.0-0.1 10^3/uL Sodium Level 143 135-145 MMOL/L Potassium Level 3.8 3.6-5.0 MMOL/L Chloride Level 108 H 98-107 MMOL/L Carbon Dioxide Level 24 21-32 MMOL/L Anion Gap 11 5-14 MMOL/L Blood Urea Nitrogen 11 7-18 MG/DL Creatinine 1.05 0.60-1.30 MG/DL Estimat Glomerular Filtration Rate 55 BUN/Creatinine Ratio 10 Glucose Level 103 70-105 MG/DL Calcium Level 9.4 8.5-10.1 MG/DL Magnesium Level 2.6 H 1.8-2.4 MG/DL Total Bilirubin 0.4 0.1-1.0 MG/DL Aspartate Amino Transf (AST/SGOT) 39 H 5-34 U/L Alanine Aminotransferase (ALT/SGPT) 37 0-55 U/L Alkaline Phosphatase 91 40-136 U/L Total Creatine Kinase 761 H 29-168 U/L Troponin I < 0.30 <0.30 NG/ML Total Protein 6.7 6.4-8.2 GM/DL Albumin 4.1 3.2-4.5 GM/DL Micro Results Microbiology 08/08/17 Urine Culture - Final, Complete Escherichia coli My Orders Orders - MAEVE CHANEL MD Cbc With Automated Diff (08/08/17 01:21) Comprehensive Metabolic Panel (08/08/17 01:21) Creatine Kinase (08/08/17 01:21) Magnesium (08/08/17 01:21) Troponin I (08/08/17 01:21) Ua Culture If Indicated (08/08/17 01:21) Saline Lock/Iv-Start (08/08/17 01:21) Ekg Tracing (08/08/17:21) Chest 1 View, Ap/Pa Only (08/08/17 01:21) Ondansetron Injection (Zofran Injectio (08/08/17 01:30) Ketorolac Injection (Toradol Injection) (08/08/17 01:30) Urine Culture (08/08/17 02:22) Ceftriaxone Injection (Rocephin Injectio (08/08/17 03:45) Saline Lock/Iv-Start (08/08/17 03:35) Ns Iv 1000 Ml (Sodium Chloride 0.9%) (08/08/17 03:35) Medications Given in ED Vital Signs/I&O Capillary Refill : Less Than 3 Seconds Blood Pressure Mean: 115 Progress Note : Progress Note Patient received Toradol and Zofran for treatment of symptoms. Urinary tract infection was identified and Rocephin was administered. Creatinine kinase was elevated and a liter of IV fluids was infused. I suspect patient is having some degree of adverse reaction to medication, possibly Requip. She was instructed to follow-up with her primary care provider, stop Requip, and drink plenty of liquids. She can use the Zofran she already has at home for nausea. ECG Initial ECG Impression Date: Aug 08, 2017 Initial ECG Impression Time: 01:46 Initial ECG Rate: 80 Initial ECG Rhythm: Normal Sinus Initial ECG Intervals: Normal Initial ECG Impression: Normal Comment Normal sinus rhythm with no ST elevation or depression. No abnormal intervals or axis deviation. Diagnostic Imaging Diagonstic Imaging: Xray Plain Films/CT/US/NM/MRI: chest Comments Chest x-ray viewed by me. Report not yet available. No acute abnormalities appreciated. Departure Impression Primary Impression: Atypical chest pain Additional Impressions: Rhabdomyolysis Qualified Codes: M62.82 - Rhabdomyolysis Nausea Urinary tract infection Qualified Codes: N39.0 - Urinary tract infection, site not specified Disposition: HOME, SELF-CARE Condition: Improved Departure-Patient Inst. Decision time for Depature: 03:42 Referrals: DUSTIN BALES APRN (PCP/Family) Primary Care Physician Patient Instructions: Urinary Tract Infection, Adult (DC) Add. Discharge Instructions: Drink plenty of clear liquids. Complete your antibiotic as prescribed Use Zofran (ondansetron) as previously prescribed for nausea and vomiting. Follow-up with your primary care provider as soon as possible. Return to care if symptoms are worsening. Stop Requip. All discharge instructions reviewed with patient and/or family. Voiced understanding. Scripts Cephalexin (Keflex) 500 Mg Capsule 500 MG PO QID, #28 CAP Prov: MAEVE CHANEL MD 08/08/17 Copy Copies To 1: JULIAN RAMON MD, JOSHUA T MD Aug 08, 2017 03:46
[2017-08-08 05:18] VITALS: BP 147/84
--- NOTE | 2017-08-08 07:13 | Diagnostic Imaging Report ---
EXAM: CHEST 1 VIEW, AP/PA ONLY INDICATION: Vomiting. COMPARISON: Chest radiograph of 03/05/2017. FINDINGS: Normal heart size and pulmonary vascularity. No focal pulmonary opacity, pleural effusion or pneumothorax. No acute osseous findings. IMPRESSION: No acute cardiopulmonary findings. Dictated by: Dictated on workstation # [id number]
== END 2017-08-08 05:18 | disposition home or self-care (01) ==
LOC: EDUNIT# 23:45 → ER 23:47
DX: M62.82 Rhabdomyolysis (principal); N39.0 Urinary tract infection, site not specified; R07.89 Other chest pain; R11.2 Nausea with vomiting, unspecified; G47.9 Sleep disorder, unspecified; F41.9 Anxiety disorder, unspecified; I10 Essential (primary) hypertension; J44.9 Chronic obstructive pulmonary disease, unspecified; F31.9 Bipolar disorder, unspecified; F90.9 Attention-deficit hyperactivity disorder, unspecified type; K21.9 Gastro-esophageal reflux disease without esophagitis; G25.81 Restless legs syndrome; Z85.3 Personal history of malignant neoplasm of breast; Z87.891 Personal history of nicotine dependence; Z91.5 Personal history of self-harm; Z90.710 Acquired absence of both cervix and uterus; Z90.49 Acquired absence of other specified parts of digestive tract; Z98.51 Tubal ligation status; Z87.59 Personal history of other complications of pregnancy, childbirth and the puerperium; Z88.8 Allergy status to other drugs, medicaments and biological substances; Z91.14 Patient's other noncompliance with medication regimen
CPT/HCPCS: 36415; 71045; 80053; 81000; 82550; 83735; 84484; 85025; 87088; 87186; 93005; 96374; 96375

== ENCOUNTER 2017-09-06 13:25 | Outpatient (RCR) | payer MEDICARE, MEDICAID ==
[2017-06-23 13:15] LABS: BASOPHILS # (AUTO) 0.1 10^3/uL (0.0-0.1); BASOPHILS % (AUTO) 1 % (0-10); EOSINOPHILS % (AUTO) 10 % (0-10); HEMATOCRIT 34 % (35-52); HEMOGLOBIN 10.4 G/DL (11.5-16.0); LYMPHOCYTES # (AUTO) 2.7 X 10^3 (1.0-4.0); LYMPHOCYTES % (AUTO) 28 % (12-44); MEAN CORPUSCULAR HEMOGLOBIN 26 PG (25-34); MEAN CORPUSCULAR HGB CONC 31 G/DL (32-36); MEAN CORPUSCULAR VOLUME 83 FL (80-99); MEAN PLATELET VOLUME 9.2 FL (7.4-10.4); MONOCYTES # (AUTO) 0.6 X 10^3 (0.0-1.0); MONOCYTES % (AUTO) 7 % (0-12); NEUTROPHILS # (AUTO) 5.3 X 10^3 (1.8-7.8); NEUTROPHILS % (AUTO) 55 % (42-75); PLATELET COUNT 328 10^3/uL (130-400); RED BLOOD COUNT 4.07 10^6/uL (4.35-5.85); RED CELL DISTRIBUTION WIDTH 13.8 % (10.0-14.5); WHITE BLOOD COUNT 9.7 10^3/uL (4.3-11.0)
[2017-06-23 13:32] LABS: ALANINE AMINOTRANSFERASE 20 U/L (0-55); ALBUMIN 3.6 GM/DL (3.2-4.5); ALKALINE PHOSPHATASE 100 U/L (40-136); BILIRUBIN,TOTAL 0.2 MG/DL (0.1-1.0); BUN/CREATININE RATIO 11; CALCIUM 8.5 MG/DL (8.5-10.1); CARBON DIOXIDE 24 MMOL/L (21-32); CHLORIDE 111 MMOL/L (98-107); CREATININE SERUM 0.92 MG/DL (0.60-1.30); GFR ESTIMATED > 60; GLUCOSE 110 MG/DL (70-105); POTASSIUM 3.8 MMOL/L (3.6-5.0); SODIUM 140 MMOL/L (135-145); TOTAL PROTEIN 6.3 GM/DL (6.4-8.2)
[2017-08-23 11:59] LABS: BASOPHILS # (AUTO) 0.1 10^3/uL (0.0-0.1); BASOPHILS % (AUTO) 1 % (0-10); EOSINOPHILS # (AUTO) 0.6 10^3/uL (0.0-0.3); EOSINOPHILS % (AUTO) 8 % (0-10); HEMATOCRIT 36 % (35-52); HEMOGLOBIN 11.2 G/DL (11.5-16.0); LYMPHOCYTES % (AUTO) 25 % (12-44); MEAN CORPUSCULAR HEMOGLOBIN 26 PG (25-34); MEAN CORPUSCULAR HGB CONC 31 G/DL (32-36); MEAN CORPUSCULAR VOLUME 85 FL (80-99); MEAN PLATELET VOLUME 9.3 FL (7.4-10.4); MONOCYTES # (AUTO) 0.6 X 10^3 (0.0-1.0); MONOCYTES % (AUTO) 7 % (0-12); NEUTROPHILS # (AUTO) 4.7 X 10^3 (1.8-7.8); NEUTROPHILS % (AUTO) 59 % (42-75); PLATELET COUNT 301 10^3/uL (130-400); RED BLOOD COUNT 4.26 10^6/uL (4.35-5.85); RED CELL DISTRIBUTION WIDTH 14.8 % (10.0-14.5)
[2017-08-23 12:19] LABS: ALANINE AMINOTRANSFERASE 43 U/L (0-55); ALKALINE PHOSPHATASE 76 U/L (40-136); BILIRUBIN,TOTAL 0.5 MG/DL (0.1-1.0); BUN/CREATININE RATIO 10; CALCIUM 8.8 MG/DL (8.5-10.1); CARBON DIOXIDE 23 MMOL/L (21-32); CHLORIDE 111 MMOL/L (98-107); CREATININE SERUM 0.96 MG/DL (0.60-1.30); GFR ESTIMATED > 60; GLUCOSE 91 MG/DL (70-105); POTASSIUM 3.7 MMOL/L (3.6-5.0); SODIUM 140 MMOL/L (135-145); TOTAL PROTEIN 6.4 GM/DL (6.4-8.2)
[~2017-09-06 13:25] MED LIST changes: +CEPH-507 PO; +FERRIC CARBOXYMALTOSE (CANCER) 750 MG in NS (IVPB) CANCER CENTER 250 ML IV SCH
== END 2017-09-21 | disposition home or self-care (01) ==
LOC: ONC 13:25
PROVIDERS: ATTEND Internal Medicine Hematology & Oncology
DX: C50.412 Malignant neoplasm of upper-outer quadrant of left female breast (principal); J44.9 Chronic obstructive pulmonary disease, unspecified; I10 Essential (primary) hypertension; E78.5 Hyperlipidemia, unspecified; F31.9 Bipolar disorder, unspecified; K21.9 Gastro-esophageal reflux disease without esophagitis; E66.01 Morbid (severe) obesity due to excess calories; Z68.41 Body mass index [BMI] 40.0-44.9, adult; Z79.899 Other long term (current) drug therapy; Z12.31 Encounter for screening mammogram for malignant neoplasm of breast; E89.40 Asymptomatic postprocedural ovarian failure; C50.112 Malignant neoplasm of central portion of left female breast; Z90.722 Acquired absence of ovaries, bilateral; Z79.818 Long term (current) use of other agents affecting estrogen receptors and estrogen levels
CPT/HCPCS: 36415; 80053; 82728; 83540; 85025; 96365; 99213

== ENCOUNTER 2017-09-24 16:03 | Outpatient (RCR) | payer MEDICARE, MEDICAID ==
[~2017-09-24 16:03] MED LIST changes: -AMLO5TAB2 PO; +AMLO5TAB7 PO; -FERRIC CARBOXYMALTOSE (CANCER) 750 MG in NS (IVPB) CANCER CENTER 250 ML IV SCH; -OXYC-197 PO; +OXYC1TAB87 PO
[2017-09-24 16:30] LABS: BASOPHILS # (AUTO) 0.1 10^3/uL (0.0-0.1); BASOPHILS % (AUTO) 1 % (0-10); EOSINOPHILS # (AUTO) 0.9 10^3/uL (0.0-0.3); EOSINOPHILS % (AUTO) 10 % (0-10); HEMATOCRIT 40 % (35-52); HEMOGLOBIN 13.3 G/DL (11.5-16.0); LYMPHOCYTES # (AUTO) 2.6 X 10^3 (1.0-4.0); LYMPHOCYTES % (AUTO) 29 % (12-44); MEAN CORPUSCULAR HEMOGLOBIN 29 PG (25-34); MEAN CORPUSCULAR HGB CONC 33 G/DL (32-36); MEAN CORPUSCULAR VOLUME 87 FL (80-99); MEAN PLATELET VOLUME 9.3 FL (7.4-10.4); MONOCYTES # (AUTO) 0.7 X 10^3 (0.0-1.0); MONOCYTES % (AUTO) 7 % (0-12); NEUTROPHILS # (AUTO) 4.9 X 10^3 (1.8-7.8); NEUTROPHILS % (AUTO) 53 % (42-75); PLATELET COUNT 266 10^3/uL (130-400); RED BLOOD COUNT 4.63 10^6/uL (4.35-5.85); RED CELL DISTRIBUTION WIDTH 14.4 % (10.0-14.5); WHITE BLOOD COUNT 9.1 10^3/uL (4.3-11.0)
[2017-12-22] MEDS ORDERED: SULF1TAB35 PO (02:39)
== END 2017-12-23 | disposition home or self-care (01) ==
LOC: ONC 16:03
PROVIDERS: ATTEND Internal Medicine Hematology & Oncology
DX: C50.412 Malignant neoplasm of upper-outer quadrant of left female breast (principal); J44.9 Chronic obstructive pulmonary disease, unspecified; I10 Essential (primary) hypertension; E78.5 Hyperlipidemia, unspecified; F31.9 Bipolar disorder, unspecified; K21.9 Gastro-esophageal reflux disease without esophagitis; E66.01 Morbid (severe) obesity due to excess calories; Z68.41 Body mass index [BMI] 40.0-44.9, adult; Z79.899 Other long term (current) drug therapy; Z12.31 Encounter for screening mammogram for malignant neoplasm of breast; E89.40 Asymptomatic postprocedural ovarian failure; C50.112 Malignant neoplasm of central portion of left female breast; Z90.722 Acquired absence of ovaries, bilateral; Z79.818 Long term (current) use of other agents affecting estrogen receptors and estrogen levels
CPT/HCPCS: 85025

== ENCOUNTER 2017-12-22 00:50 | Emergency (ER) | payer MEDICARE, MEDICAID ==
[~2017-12-22] VITALS: Ht 142.2 cm; Wt 89.8 kg
--- NOTE | 2017-12-22 01:23 | ED General ---
General Chief Complaint: Bite-Animal/Human/Insect Stated Complaint: SWELLING IN RT HAND Source of Information: Patient Exam Limitations: No Limitations (MYNOR HUA MED STUDENT) History of Present Illness Date Seen by Provider: Dec 22, 2017 Time Seen by Provider: 01:16 Initial Comments Patient is a 52 year old female who presents to the ER for right hand pain and swelling. The patient states that she noticed the swelling around 2200 and was concerned. She had been out fishing earlier that evening and thinks she may have gotten bitten by some sort of insect. She did not physically see anything bite her hand but states she has some other smaller insect bites on her. She states that her hand is itchy, warm and is somewhat painful to palpation. She rates the pain as a 7/10. Patient states that she has been in [place] for the past month and recently returned. She denies fever and chills. Location Injury Occurred: Right hand Timing/Duration: 4-6 Hours Severity: Mild Associated Systoms: No Fever/Chills (MYNOR HUA MED STUDENT) Allergies and Home Medications Allergies Coded Allergies: fluoxetine (Unverified Allergy, Mild, 03/05/17) zolpidem (Verified Allergy, Unknown, "MAKES ME ANGRY LIKE A BEAR", 05/09/15 ) fluticasone (Verified Adverse Reaction, Unknown, DOESN'T WORK, 05/09/15) gabapentin (Verified Adverse Reaction, Unknown, NOT EFFECTIVE, 05/09/15) salmeterol (Verified Adverse Reaction, Unknown, DOESN'T WORK, 05/09/15) Uncoded Allergies: PROPANOLOL (Adverse Reaction, Unknown, NOT EFFECTIVE, 05/09/15) Home Medications Amitriptyline Hcl 100 Mg Tablet, 200 MG PO HS, (Reported) TAKE 2 (100MG) TABS Budesonide/Formoterol Fumarate 10.2 Gm Hfa.aer.ad, 2 PUFF IH BID, (Reported) Cephalexin 500 Mg Capsule, 500 MG PO QID Prescribed by: MAEVE HARRISON on 08/08/17 0346 Clindamycin HCl 300 Mg Capsule, 300 MG PO QID Prescribed by: KENDY SELLERS on 03/05/17 231 Famotidine 40 Mg Tablet, 40 MG PO DAILY Prescribed by: KENDY SELLERS on 02/11/171946 Hydroxyzine Pamoate 50 Mg Capsule, 50 MG PO Q6H Prescribed by: KENDY SELLERS on 02/11/171946 Lactobacillus Acidophilus 1 Each Capsule, 2 EACH PO QID Prescribed by: KENDY SELLERS on 03/05/17 231 Mometasone Furoate 15 Gm Cream..g., 0 TP TID Prescribed by: KENDY SELLERS on 02/11/171946 Mometasone/Formoterol 13 Gm Hfa.aer.ad, 1 PUFF IH BID PRN for SHORTNESS OF BREATH, (Reported) PRN SOB Sulfamethoxazole/Trimethoprim 1 Each Tablet, 1 EACH PO BID Prescribed by: MAEVE HARRISON on 12/22/17 0239 Patient Home Medication List Home Medication List Reviewed: Yes (MAEVE CHANEL MD) Review of Systems Review of Systems Constitutional: No chills, No fever, No weakness EENTM: no symptoms reported Respiratory: no symptoms reported Cardiovascular: no symptoms reported Gastrointestinal: No abdominal pain Genitourinary: no symptoms reported Musculoskeletal: joint pain (Right hand) Skin: pruritus (Right hand), other (swelling of right hand) Psychiatric/Neurological: No Symptoms Reported Hematologic/Lymphatic: No Symptoms Reported Immunological/Allergic: no symptoms reported (MYNOR HUA) Past Biohoxs-Mxodli-Zjttmr Hx Patient Social History Alcohol Use: Denies Use Recreational Drug Use: No Smoking Status: Former Smoker Type Used: Cigarettes Former Smoker, Quit: Apr 19, 2005 Recent Foreign Travel: No Contact w/Someone Who Travel: No Recent Hopitalizations: No Physical Abuse: No Sexual Abuse: No (MYNOR HUA STUDENT) Immunizations Up To Date Tetanus Booster (TDap): More than 5yrs Date of Pneumonia Vaccine: Jun 21, 2013 Date of Influenza Vaccine: Jan 17, 2015 (MYNOR HUA STUDENT) Seasonal Allergies Seasonal Allergies: Yes (MYNOR HUA) Past Medical History Surgeries: Yes Appendectomy, Bladder Surgery, Breast, Section, Hysterectomy, Tubal Ligation Respiratory: Yes (USES O2 AT HOME PRN) Sleep Apnea, COPD Cardiac: Yes Hypertension Neurological: Yes (restless leg syndrome) 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 Disorders: Yes Female 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 Disorders: 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 Sexually Transmitted Disease: No HIV/AIDS: No Genitourinary: Yes Bladder Infection, UTI-Chronic Gastrointestinal: Yes Gastroesophageal Reflux, Esophagitis, Hiatal Hernia Musculoskeletal: Yes (BULGING DISK IN BACK; RESTLESS LEG SYNDROME) Degenerate Disk Disease, Arthritis, Chronic Back Pain Endocrine: No HEENT: Yes Cataract Cancer: Yes Breast Did You Recieve Any Treatments: Yes What Type of Treatment Did You: Surgical Intervention Psychosocial: Yes (EXTENSIVE PSYCH ISSUES) ADD/ADHD, Sleep Difficulties, Anxiety, Suicide Attempts, Bipolar, Depression Integumentary: Yes (YEAST INFECTION UNDER ABDOMINAL FOLD) Blood Disorders: No Adverse Reaction/Blood Tranf: No (MYNOR HUA STUDENT) Family Medical History Cancer GRANDPARENTS Congestive heart failure GRANDPARENTS Family history: Cardiovascular disease GRANDPARENTS Family history: Hypertension GRANDPARENTS Heart disease GRANDPARENTS Myocardial infarction GRANDPARENTS Stroke 03 MOTHER, Onset:60 years & older No Family History of: Abdominal aortic aneurysm Family history: Allergy Family history: Alzheimer's disease Family history: Asthma Family history: Diabetes mellitus Family history: Gastrointestinal disease Family history: Thyroid disorder Hereditary disease Seizure disorder Physical Exam Vital Signs Vital Signs - First Documented 12/22/17 00:59 Temp 98.1 Pulse 100 Resp 16 B/P (MAP) 180/112 (134) Pulse Ox 97 O2 Delivery Room Air (MAEVE CHANEL MD) Vital Signs Capillary Refill : (MYNOR HAU STUDENT) Height, Weight, BMI Height: 4'10.00" Weight: 211lbs. 0.0oz. 95.778145az; 54.86 BMI Method:Stated General Appearance: No Apparent Distress HEENT: Normal ENT Inspection, Pharynx Normal Neck: Normal Inspection, Non Tender, Supple Respiratory: Lungs Clear, Normal Breath Sounds, No Accessory Muscle Use, No Respiratory Distress Cardiovascular: Regular Rate, Rhythm, No Edema, No Gallop, No JVD, No Murmur Gastrointestinal: Normal Bowel Sounds, Non Tender, Soft Extremity: Normal Inspection Neurologic/Psychiatric: Alert, Oriented x3, Normal Mood/Affect Skin: Normal Color, Erythema (Slight on right hand (2nd and 3rd metacarpals), Other (Edema noted over right hand (2nd and 3th metacarpals)) Lymphatic: No Adenopathy (MYNOR HUA STUDENT) Progress/Results/Core Measures Suspected Sepsis SIRS Temperature: Pulse: Respiratory Rate: Blood Pressure / Mean: (MYNOR HUA STUDENT) Results/Orders Lab Results Laboratory Tests Test 12/22/17 01:38 Range/Units White Blood Count 12.9 H 4.3-11.0 10^3/uL Red Blood Count 4.50 4.35-5.85 10^6/uL Hemoglobin 13.3 11.5-16.0 G/DL Hematocrit 39 35-52 % Mean Corpuscular Volume 87 80-99 FL Mean Corpuscular Hemoglobin 30 25-34 PG Mean Corpuscular Hemoglobin Concent 34 32-36 G/DL Red Cell Distribution Width 12.9 10.0-14.5 % Platelet Count 331 130-400 10^3/uL Mean Platelet Volume 9.4 7.4-10.4 FL Neutrophils (%) (Auto) 53 42-75 % Lymphocytes (%) (Auto) 30 12-44 % Monocytes (%) (Auto) 5 0-12 % Eosinophils (%) (Auto) 10 0-10 % Basophils (%) (Auto) 1 0-10 % Neutrophils # (Auto) 6.9 1.8-7.8 X 10^3 Lymphocytes # (Auto) 3.9 1.0-4.0 X 10^3 Monocytes # (Auto) 0.7 0.0-1.0 X 10^3 Eosinophils # (Auto) 1.3 H 0.0-0.3 10^3/uL Basophils # (Auto) 0.1 0.0-0.1 10^3/uL Erythrocyte Sedimentation Rate 9 0-30 MM/HR Sodium Level 142 135-145 MMOL/L Potassium Level 3.1 L 3.6-5.0 MMOL/L Chloride Level 110 H 98-107 MMOL/L Carbon Dioxide Level 19 L 21-32 MMOL/L Anion Gap 13 5-14 MMOL/L Blood Urea Nitrogen 8 7-18 MG/DL Creatinine 0.83 0.60-1.30 MG/DL Estimat Glomerular Filtration Rate > 60 BUN/Creatinine Ratio 10 Glucose Level 114 H 70-105 MG/DL Uric Acid 5.7 2.6-7.2 MG/DL Calcium Level 9.2 8.5-10.1 MG/DL C-Reactive Protein High Sensitivity 0.32 0.00-0.50 MG/DL (MAEVE CHANEL MD) My Orders Orders - MAEVE CHANEL MD Basic Metabolic Panel (12/22/17 01:22) Cbc With Automated Diff (12/22/17 01:22) Hs C Reactive Protein (12/22/17 01:22) Erythrocyte Sedimentation Rate (12/22/17 01:22) Uric Acid (12/22/17 01:22) Clindamycin 600 Mg/50 Ml Ivpb (Cleocin P (12/22/17 02:30) Ketorolac Injection (Toradol Injection) (12/22/17 02:45) (MAEVE CHANEL MD) Medications Given in ED Current Medications Medications Dose Ordered Sig/Rolo Route Start Time Stop Time Status Last Admin Dose Admin Clindamycin Phosphate/Dextrose 50 ml @ 108 mls/hr ONCE ONCE IV 12/22/17 02:30 12/22/17 02:57 12/22/17 02:30 108 MLS/HR (MAEVE CHANEL MD) Vital Signs/I&O 12/22/17 00:59 Temp 98.1 Pulse 100 Resp 16 B/P (MAP) 180/112 (134) Pulse Ox 97 O2 Delivery Room Air (MAEVE CHANEL MD) Vital Signs/I&O Capillary Refill : (MYNOR HUA MED STUDENT) Progress Note : Progress Note This patient was interviewed, seen, and examined along with EARL Garcia. I agree with her history, documentation, exam, assessment, and plan. Patient just noticed the symptoms last night. She states the affected areas are tender to palpation. 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 She denies seeing anything actually bite or sting her. She denies any injury. She is afebrile. Exam: Gen.: Alert, oriented, no acute distress HEENT: Normocephalic and atraumatic, mucous membranes moist Heart: Regular rate and rhythm without murmur Lungs: Clear to auscultation bilaterally with normal effort Extremities: Right hand has an area of tenderness and swelling over the distal second and third metacarpal. Skin: Warm and dry. Very subtle erythema over the right hand. Bedside ultrasound was performed and revealed no focal collection of fluid to suggest abscess. Patient was treated with a dose of clindamycin by IV route and Toradol. Labs were obtained. There was a mild leukocytosis suggestive of infection. (MAEVE CHANEL MD) Departure Impression Primary Impression: Swelling of right hand Disposition: HOME, SELF-CARE Condition: Improved Departure-Patient Inst. Decision time for Depature: 02:30 (MAEVE CHANEL MD) Referrals: NO,LOCAL PHYSICIAN (PCP/Family) Primary Care Physician Patient Instructions: Cellulitis (Skin Infection), Adult (DC) Add. Discharge Instructions: The exact cause of the swelling in your hand is uncertain but it may be related to infection. Complete the antibiotics as prescribed. Follow-up with your primary care provider within the next several days. Return to the emergency room if symptoms are worsening, especially if you develop fever over 100.. You may take ibuprofen up to 600 mg every 6 hours as needed for pain. Add Tylenol ( acetaminophen) up to 1000 mg every 6 hours as needed for additional pain relief. All discharge instructions reviewed with patient and/or family. Voiced understanding. Scripts Sulfamethoxazole/Trimethoprim (Bactrim Ds Tablet) 1 Each Tablet 1 EACH PO BID, #20 TAB Prov: MAEVE CHANEL MD 12/22/17 MYNOR HUA MED STUDENT Dec 22, 2017 01:23 MAEVE CHANEL MD Dec 22, 2017 02:35
[2017-12-22 01:49] LABS: BASOPHILS # (AUTO) 0.1 10^3/uL (0.0-0.1); BASOPHILS % (AUTO) 1 % (0-10); EOSINOPHILS # (AUTO) 1.3 10^3/uL (0.0-0.3); EOSINOPHILS % (AUTO) 10 % (0-10); HEMATOCRIT 39 % (35-52); HEMOGLOBIN 13.3 G/DL (11.5-16.0); LYMPHOCYTES # (AUTO) 3.9 X 10^3 (1.0-4.0); LYMPHOCYTES % (AUTO) 30 % (12-44); MEAN CORPUSCULAR HEMOGLOBIN 30 PG (25-34); MEAN CORPUSCULAR HGB CONC 34 G/DL (32-36); MEAN CORPUSCULAR VOLUME 87 FL (80-99); MEAN PLATELET VOLUME 9.4 FL (7.4-10.4); MONOCYTES # (AUTO) 0.7 X 10^3 (0.0-1.0); MONOCYTES % (AUTO) 5 % (0-12); NEUTROPHILS # (AUTO) 6.9 X 10^3 (1.8-7.8); NEUTROPHILS % (AUTO) 53 % (42-75); PLATELET COUNT 331 10^3/uL (130-400); RED CELL DISTRIBUTION WIDTH 12.9 % (10.0-14.5); WHITE BLOOD COUNT 12.9 10^3/uL (4.3-11.0)
[2017-12-22 02:06] LABS: BUN/CREATININE RATIO 10; CALCIUM 9.2 MG/DL (8.5-10.1); CARBON DIOXIDE 19 MMOL/L (21-32); CHLORIDE 110 MMOL/L (98-107); CREATININE SERUM 0.83 MG/DL (0.60-1.30); GFR ESTIMATED > 60; GLUCOSE 114 MG/DL (70-105); POTASSIUM 3.1 MMOL/L (3.6-5.0); SODIUM 142 MMOL/L (135-145); URIC ACID 5.7 MG/DL (2.6-7.2)
[2017-12-22 02:08] LABS: ERYTHROCYTE SEDIMENTATION RATE 9 MM/HR (0-30)
[2017-12-22] MEDS ORDERED: CLINDAMYCIN 600 MG/50 ML IVPB 50 ML IV ONE (02:30)
[2017-12-22] MEDS ORDERED: SULF1TAB35 PO (02:39)
[2017-12-22] MEDS ORDERED: KETOROLAC 30 MG/ML VIAL IVP ONE (02:45)
[2017-12-22 03:02] VITALS: BP 169/110
--- OUTSIDE RECORDS SUMMARY | 2017-12-22 03:26 | XMS REPORT | Clinical Summary ---
Author Author [facility] Organization [facility] Address Unknown Phone Unavailable Care Team Providers Care Physical Therapy Asst Name Role Phone Homer Alejandra MD Unavailable Unavailable Kirill Murray MD Unavailable Unavailable Anjali Slater RN Unavailable Unavailable Daniela Velasquez RN Unavailable Unavailable Amy Cartagena PCP Source Comments Some departments are not documenting in the electronic medical record. If you do not see the information that you expected, contact Release of Information in the Health Information Management department at [phone] for further assistance in locating additional records.[facility] Allergies Active Allergy Reactions Severity Noted Date [...] Taken Blood Pressure 146/83 05/22/2016 4:00 PM BOOK PUBLISHER Pulse 94 05/22/2016 4:00 PM BOOK PUBLISHER Temperature 37.2 C (98.9 F) 05/22/2016 4:00 PM BOOK PUBLISHER Respiratory Rate 18 12/16/2015 12:12 PM CDT Oxygen Saturation 93% 03/17/2016 5:40 PM BOOK PUBLISHER Inhaled Oxygen - - Concentration Weight 90.7 kg (200 lb) 05/22/2016 4:00 PM BOOK PUBLISHER Height 147.3 cm (4' 10") 05/22/2016 4:00 PM BOOK PUBLISHER Body Mass Index 41.8 05/22/2016 4:00 PM BOOK PUBLISHER Plan of Treatment Health Maintenance Due Date Last Done Comments PHYSICAL (COMPREHENSIVE) 06/26/1974 EXAM PERTUSSIS VACCINE 06/26/1978 HIV SCREENING 06/26/1982 TETANUS VACCINE 06/26/1984 CERVICAL CANCER SCREENING 06/26/1997 BREAST CANCER SCREENING 2007 COLORECTAL CANCER 06/26/2017 SCREENING SHINGLES RECOMBINANT 06/26/2017 VACCINE (1 of 2) INFLUENZA VACCINE 01/17/2018 Implants Implanted Type Area Ticketing Agent Device Expiration Model / Identifier Date Serial / Lot Matrix Tissue [id number] Alloderm Left: LIFECELL 09/15/2017 [id number] / Thick Acellular Dermis Breast [id number] Implanted: Qty: 1 on 12/26/2015 by 20 / Homer Alejandra MD [id number] Pcat Instructor Tissue 12.7x10.8cm Breast Left: MENTOR:AESTHETI 06/12/2019 [id number] / 450ml Style 9200 Textured Breast CS PRDT [id number] Implanted: Qty: 1 on 12/26/2015 by 3 / Homer Alejandra MD [id number] Implant Breast 350ml Gel Smooth Left: MENTOR:NEFTALY 12/22/2018 350 -[id number] Memorygel Cohesive I Breast CS PRDT BC / Implanted: Qty: 1 on 03/17/2016 by [id number] Homer Alejandra MD 2 / NA Explanted Type Area Ticketing Agent Device Expiration Model / Identifier Date Serial / Lot Tissue Pcat Instructor Left: MENTOR NA / Explanted: Qty: 1 on 03/17/2016 Breast [employer] NA / [id number] Results Not on filefrom Last 3 Months
--- OUTSIDE RECORDS SUMMARY | 2017-12-22 03:27 | XMS REPORT ---
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 [id number] [place] [address]- 0073 Jun, [facility] [place] [facility] [address] [id number] [place] [address]- 6201 Jun, [facility] [place] [facility] [address] [id number] [place] [address]- 4904 Jun, [facility] [place] [facility] [address] [id number] [address]- 7263 Jun, [facility] [place] [facility] [address] [id number] [place] [address]- 0523 19 Jun, 2014 [facility] [place] [facility] [address] [id number] [place] [address]- 5134 18 Jun, 2014 [facility] [place] [facility] [address] [id number] [place] [address]- 6713 18 Jun, 2014 [facility] [place] [facility] [address] [id number] [place] [address]- 1841 18 Jun, 2014 [facility] [place] [facility] [address] [id number] [place] [address]- 7088 18 Jun, 2014 [facility] [place] [facility] [address] [id number] [place] [address]- 9721 17 Jun, 2014 [facility] [place] [facility] [address] [id number] [place] [address]- 2886 17 Jun, 2014 [facility] [place] [facility] [address] [id number] [place] [address]- 5865 17 Jun, 2014 [facility] [place] [facility] [address] [id number] [place] [address]- 2788 17 Jun, 2014 [facility] [place] [facility] [address] [id number] [place] [address]- 3643 13 Jun, 2014 [facility] [place] [facility] [address] [id number] [place] [address]- 8387 13 Jun, 2014 [facility] [place] [facility] [address] [id number] [place] [address]- 3205 12 Jun, 2014 [facility] [place] [facility] [address] [id number] [place] [address]- 1060 12 Jun, 2014 [facility] [place] [facility] [address] [id number] [place] [address]- 4532 10 Jun, 2014 [facility] [place] [facility] [address] [id number] [place] [address]- 9839 10 Jun, 2014 [facility] [place] [facility] [address] [id number] [place] [address]- 5875 10 Jun, 2014 [facility] [place] [facility] [address] [id number] [place] [address]- 0767 10 Jun, 2014 [facility] [place] [facility] [address] [id number] [place] [address]- 3938 06 Jun, 2014 [facility] [place] [facility] [address] [id number] [place] [address]- 1293 06 Jun, 2014 [facility] [place] [facility] [address] [id number] [place] [address]- 5013 Jun, 2014 [facility] [place] [facility] [address] [id number] [place] [address]- 6031 Jun, [facility] [place] [facility] [address] [id number] [place] [address]- 2174 Jun, [facility] [place] [facility] [address] [id number] [place] [address]- 7539 Jun, [facility] [place] [facility] [address] [id number] [place] [address]- 5114 May, 2014 [facility] [place] [facility] [address] [id number] [place] [address]- 5038 May, 2014 [facility] [place] [facility] [address] [id number] [place] [address]- 7437 May, 2014 [facility] [place] [facility] [address] [id number] [place] [address]- 1193 May, 2014 [facility] [place] [facility] [address] [id number] [place] [address]- 4946 May, 2014 [facility] [place] [facility] [address] [id number] [place] [address]- 3402 May, 2014 [facility] [place] [facility] [address] [id number] [place] [address]- 0479 May, 2014 [facility] [place] [facility] [address] [id number] [place] [address]- 4104 May, 2014 [facility] [place] [facility] [address] [id number] [place] [address]- 6788 May, 2014 [facility] [place] [facility] [address] [id number] [place] [address]- 7871 May, 2014 [facility] [place] [facility] [address] [id number] [place] [address]- 4398 May, 2014 [facility] [place] [facility] [address] [facility] [id number] [place] [address]- 2570 May, 2014 [facility] [place] [facility] [address] [id number] [place] [address]- 3385 05 May, 2014 [facility] [place] [facility] [address] [id number] [place] [address]- 1987 May, [facility] [place] [facility] [address] [id number] [place] [address]- 2246 May, [facility] [place] [facility] [address] [id number] [place] [address]- 3801 May, [facility] [place] [facility] [address] [id number] [place] [address]- 9408 Apr, [facility] [place] [facility] [address] [id number] [place] [address]- 5421 Apr, [facility] [place] [facility] [address] [id number] [place] [address]- 1001 Apr, [facility] [place] [facility] [address] [id number] [place] [address]- 4579 Apr, [facility] [place] [facility] [address] [id number] [place] [address]- 7053 Apr, [facility] [place] [facility] [address] [id number] [place] [address]- 5021 Apr, [facility] [place] [facility] [address] [id number] [place] [address]- 3949 Apr, [facility] [place] [facility] [address] [id number] [place] [address]- 3234 Apr, [facility] [place] [facility] [address] [id number] [place] [address]- 5270 Apr, [facility] [place] [facility] [address] [id number] [place] [address]- 6751 Apr, [facility] [place] [facility] [address] [id number] [place] [address]- 6299 Apr, [facility] [place] [facility] [address] [id number] [place] [address]- 4860 Apr, [facility] [place] [facility] [address] [id number] [place] [address]- 3555 Apr, [facility] [place] [facility] [address] [id number] [place] [address]- 5206 Apr, [facility] [place] [facility] [address] [id number] [place] [address]- 8290 Apr, [facility] [place] [facility] [address] [id number] [place] [address]- 5871 Mar, [facility] [place] [facility] [address] [id number] [place] [address]- 4042 Mar, [facility] [place] [facility] [address] [id number] [place] [address]- 5713 Mar, [facility] [place] [facility] [address] [id number] [place] [address]- 3110 Mar, [facility] [place] [facility] [address] [id number] [place] [address]- 4868 Mar, [facility] [place] [facility] [address] [id number] [place] [address]- 6168 Mar, [facility] [place] [facility] [address] [id number] [place] [address]- 1035 15 Mar, 2014 [facility] [place] [facility] [address] [id number] [place] [address]- 7271 15 Mar, 2014 [facility] [place] [facility] [address] [id number] [address]- 4619 15 Mar, 2014 [facility] [place] [facility] [address] [id number] [place] [address]- 0986 15 Mar, 2014 [facility] [place] [facility] [address] [id number] [place] [address]- 7397 15 Mar, 2014 [facility] [place] [facility] [address] [id number] [place] [address]- 2839 15 Mar, 2014 [facility] [place] [facility] [address] [id number] [place] [address]- 5847 Mar, [facility] [place] [facility] [address] [id number] [place] [address]- 9271 Mar, [facility] [place] [facility] [address] [id number] [place] [address]- 4369 Mar, [facility] [place] [facility] [address] [id number] [place] [address]- 2034 Mar, [facility] [place] [facility] [address] [id number] [place] [address]- 3232 Mar, [facility] [place] [facility] [address] [id number] [place] [address]- 4674 Mar, [facility] [place] [facility] [address] [id number] [place] [address]- 7989 Feb, [facility] [place] [facility] [address] [id number] [place] [address]- 8309 Feb, [facility] [place] [facility] [address] [id number] [place] [address]- 7358 Feb, [facility] [place] [facility] [address] [id number] [place] [address]- 6900 Feb, [facility] [place] [facility] [address] [facility] [id number] [place] [address]- 9484 Feb, [facility] [place] [facility] [address] [id number] [place] [address]- 2984 Feb, [facility] [place] [facility] [address] [id number] [place] [address]- 1535 Feb, [facility] [place] [facility] [address] [id number] [place] 6294 Feb, [facility] [place] [facility] [address] [id number] [place] [address]- [address] Jan, [facility] [place] [facility] [address] [id number] [place] [address] Jan, [facility] [place] [facility] [address] [id number] [place] [address] Jan, [facility] [place] [facility] [address] [id number] [place] [address] Jan, [facility] [place] [facility] [address] [id number] [place] [address] Jan, [facility] [place] [facility] [address] [id number] [place] [address] Jan, [facility] [place] [facility] [address] [id number] [place] [address] Jan, [facility] [place] [facility] [address] [id number] [place] [address] Jan, [facility] [place] [facility] [address] [id number] [place] [address] Jan, [facility] [place] [facility] [address] [id number] [place] [address] Jan, [facility] [place] [facility] [address] [id number] [place] [address] Jan, [facility] [place] [facility] [address] [id number] [place] [address] Jan, [facility] [place] [facility] [address] [id number] [place] [address] Jan, [facility] [place] [facility] [address] [id number] [place] [address] Jan, [facility] [place] [facility] [address] [id number] [place] [address] Jan, [facility] [place] [facility] [address] [id number] [place] [address] 16 Jan, 2014 [facility] [place] [facility] [address] [id number] [place] [address] Jan, [facility] [place] [facility] [address] [id number] [place] [address] 13 Jan, 2014 [facility] [place] [facility] [address] [id number] [place] [address]46 29 Sep, 2013 [facility] [place] [facility] [address] [id number] [place] [address]46 29 Dec, 2013 [facility] [place] [facility] [address] [id number] [place] [address] 2546 26 Dec, 2013 [facility] [place] [facility] [address] [id number] [place] [address] 2546 26 Dec, 2013 [facility] [place] [facility] [address] [id number] [place] [address] 2547 26 Dec, 2013 [facility] [place] [facility] [address] [id number] [place] [address]37 26 Dec, 2013 [facility] [place] [facility] [address] [id number] [place] [address]- [address] 23 Dec, 2013 [facility] [place] [facility] [address] [id number] [place] [address] 23 Dec, 2013 [facility] [place] [facility] [address] [id number] [place] [address] 254 22 Dec, 2013 [facility] [place] [facility] [address] [id number] [place] [address] 2548 22 Dec, 2013 [facility] [place] [facility] [address] [id number] [place] [address] 2545 16 Dec, 2013 [facility] [place] [facility] [address] [id number] [place] [address] 16 Dec, 2013 [facility] [place] [facility] [address] [id number] [place] [address] 2546 15 Dec, 2013 [facility] [place] [facility] [address] [id number] [place] [address] 2546 15 Dec, 2013 [facility] [place] [facility] [address] [id number] [place] [address] 09 Dec, 2013 [facility] [place] [facility] [address] [id number] [place] [address] Dec, [facility] [place] [facility] [address] [id number] [place] [address] 118[address] Dec, [facility] [place] [facility] [address] [id number] [place] [address] Nov, [facility] [place] [facility] [address] [id number] [place] [address] Nov, [facility] [place] [facility] [address] [id number] [place] [address] Nov, [facility] [place] [facility] [address] [id number] [place] [address] Nov, [facility] [place] [facility] [address] [id number] [place] [address] Nov, [facility] [place] [facility] [address] [id number] [place] [address] Nov, [facility] [place] [facility] [address] [id number] [place] [address] Nov, [facility] [place] [facility] [address] [id number] [place] [address] Nov, [facility] [place] [facility] [address] [id number] [place] [address] Nov, [facility] [place] [facility] [address] [id number] [place] [address] Nov, [facility] [place] [facility] [address] [id number] [place] [address] Nov, [facility] [place] [facility] [address] [id number] [place] [address] Nov, [facility] [place] [facility] [address] [id number] [place] [address] Nov, [facility] [facility] [address] [id number] [place] [address] Nov, [facility] [place] [facility] [address] [id number] [place] [address] Nov, [facility] [place] [facility] [address] [id number] [place] [address] 5285 Nov, [facility] [place] [facility] [address] [id number] [place] [address] 8941 Nov, [facility] [place] [facility] [address] [id number] [place] [address] 4365 Nov, [facility] [place] [facility] [address] [id number] [place] [address] 8061 Nov, [facility] [place] [facility] [address] [id number] [place] [address] 8842 Nov, [facility] [place] [facility] [address] [id number] [place] [address]- 4385 Nov, [facility] [place] [facility] [address] [id number] [place] [address] 4588 Oct, [facility] [place] [facility] [address] [id number] [place] [address] 6301 Oct, [facility] [place] [facility] [address] [id number] [place] [address]- 6502 Oct, [facility] [place] [facility] [address] [id number] [place] [address]- 9877 Oct, [facility] [place] [facility] [address] [id number] [place] [address]- 1301 Oct, [facility] [place] [facility] [address] [id number] [place] [address]- 1407 Oct, [facility] [place] [facility] [address] [id number] [place] [address]- 7663 Oct, [facility] [place] [facility] [address] [id number] [place] [address]- 2706 Oct, [facility] [place] [facility] [address] [id number] [place] [address]- 4670 15 Oct, 2013 [facility] [place] [facility] [address] [id number] [place] [address]- 8222 14 Oct, 2013 [facility] [place] [facility] [address] [id number] [place] [address]- 9691 Oct, [facility] [place] [facility] [address] [id number] [place] [address]- 3238 Oct, [facility] [place] [facility] [address] [id number] [place] [address]- 5930 Oct, [facility] [place] [facility] [address] [id number] [place] [address]- 2288 Oct, [facility] [place] [facility] [address] [id number] [place] [address]- 1772 Oct, [facility] [place] [facility] [address] [id number] [place] [address]- 3322 Sep, [facility] [place] [facility] [address] [id number] [place] [address]- 9816 Sep, [facility] [place] [facility] [address] [id number] [place] [address]- 9719 Sep, [facility] [place] [facility] [address] [id number] [place] [address]- 8807 Sep, [facility] [place] [facility] [address] [id number] [place] [address]- 2188 Sep, [facility] [place] [facility] [address] [id number] [place] [address]- 9162 Sep, [facility] [place] [facility] [address] [id number] [place] [address]- 6361 Sep, [facility] [place] [facility] [address] [id number] [place] [address]- 7054 Sep, [facility] [place] [facility] [address] [id number] [place] [address]- 2820 17 Sep, 2013 [facility] [place] [facility] [address] [id number] [place] [address]- 2572 Sep, [facility] [address] [id number] [place] [address]- 1921 Sep, [facility] [address] [id number] [place] [address]- 4833 Sep, [facility] [address] [id number] [place] [address]- 4374 Sep, [facility] [address] [id number] [place] [address]- 3802 Sep, [facility] [address] [id number] [place] [address]- 4302 Sep, [facility] [facility] [address] [id number] [place] [address]- 7948 Sep, [facility] [address] [id number] [place] [address]- 7903 Sep, [facility] [facility] [address] [id number] [place] [address]- 4075 Sep, [facility] [address] [id number] [place] [address]- 6618 Sep, [facility] [address] [id number] [place] [address]- 4368 Sep, [facility] [address] [id number] [place] [address]- 1674 Sep, [facility] [address] [id number] [place] [address]- 5560 Sep, [facility] [address] [id number] [place] [address]- 6856 August, [facility] [address] [id number] [place] [address]- 8211 August, [facility] [address] [id number] [place] [address]- 8849 August, [facility] [address] [id number] [place] [address]- 3080 August, [facility] [address] [id number] [place] [address]- 6549 August, [facility] [address] [id number] [place] [address]- 6344 August, [facility] [address] [id number] [place] [address]- 2882 August, [facility] [address] [id number] [place] [address]- 9044 August, [facility] [address] [id number] [place] [address]- 0121 August, [facility] [address] [id number] [place] [address]- 7635 August, [facility] [address] [id number] [place] [address]- 9901 August, [facility] [address] [id number] [place] [address]- 3164 August, [facility] [address] [id number] [place] [address]- 8641 August, [facility] [address] [id number] [place] [address]- 8312 August, [facility] [address] [id number] [place] [address]- 8844 August, [facility] [address] [id number] [place] [address]- 7661 August, [facility] [address] [id number] [place] [address]- 7425 August, [facility] [address] [id number] [place] [address]- 3767 August, [facility] [address] [id number] [place] [address]- 5611 Jul, [facility] [address] [id number] [place] [address]- 3814 Jul, [facility] [address] [id number] [place] [address]- 3781 Jul, [facility] [address] [id number] [place] [address]- 3360 Jul, [facility] [address] [id number] [place] [address]- 6399 Jul, [facility] [address] [id number] [place] [address]- 7129 Jul, [facility] [address] [id number] [place] [address]- 4476 Jul, [facility] [address] [id number] [place] [address]- 1424 Jul, [facility] [address] [id number] [place] [address]- 2021 Jul, [facility] [address] [id number] [place] [address]- 1248 Jul, [facility] [address] [id number] [place] [address]- 3408 Jul, [facility] [address] [id number] [place] [address]- 5464 Jul, [facility] [address] [id number] [place] [address]- 5967 Jul, [facility] [address] [id number] [place] [address]- 3442 Jul, [facility] [address] [id number] [place] [address]- 5077 Jul, [facility] [address] [id number] [place] [address]- 0312 Jul, [facility] [address] [id number] [place] [address]- 6984 17 Jul, 2013 [facility] [address] [id number] [place] [address]- 9281 16 Jul, 2013 [facility] [address] [id number] [place] [address]- 1837 16 Jul, 2013 [facility] [address] [id number] [place] [address]- 1195 15 Jul, 2013 [facility] [address] [id number] [place] [address]- 5397 15 Jul, 2013 [facility] [address] [id number] [place] [address]- 2283 14 Jul, 2013 [facility] [address] [id number] [place] [address]- 5277 Jul, [facility] [address] [id number] [place] [address]- 9045 Jul, [facility] [address] [id number] [place] [address]- 9073 Jul, [facility] [address] [id number] [place] [address]- 5746 Jul, [facility] [address] [id number] [place] [address]- 6882 Jul, [facility] [address] [id number] [place] [address]- 1654 Jul, [facility] [address] [id number] [place] [address]- 9103 Jul, [facility] [address] [id number] [place] [address]- 1262 Jun, [facility] [address] [id number] [place] [address]- 6968 Jun, [facility] [address] [id number] [place] [address]- 3373 17 Jun, 2013 [facility] [address] [id number] [place] [address]- 1896 17 Jun, 2013 [facility] [address] [id number] [place] [address]- 7024 Jun, [facility] [address] [id number] [place] [address]- 1412 Jun, [facility] [address] [id number] [place] [address]- 8281 Jun, [facility] [address] [id number] [place] [address]- 9006 Jun, [facility] [address] [id number] [place] [address]- 2594 Jun, [facility] [address] [facility] [id number] [place] [address]- 1046 Jun, [facility] [address] [id number] [place] [address]- 3750 Jun, [facility] [address] [id number] [place] [address]- 4668 Jun, [facility] [address] [facility] [id number] [place] [address]- 5070 May, [facility] [address] [id number] [place] [address]- 2145 May, [facility] [address] [id number] [place] [address]- 1589 May, [facility] [address] [id number] [place] [address]- 5615 May, [facility] [address] [id number] [place] [address]- 8510 May, [facility] [address] [facility] [id number] [place] [address]- 3224 May, [facility] [address] [id number] [place] [address]- 9607 May, [facility] [address] [id number] [place] [address]- 3196 May, [facility] [address] [id number] [place] [address]- 1656 May, [facility] [address] [id number] [place] [address]- 8959 May, [facility] [address] [id number] [place] [address]- 6148 Apr, [facility] [place] [facility] [address] [id number] [place] [address]- 7011 Apr, [facility] [place] [address] [id number] [place] [address]- 2935 Apr, [facility] [address] [id number] [place] [address]- 0615 Apr, [facility] [place] [address] [id number] [place] [address]- 6031 Apr, [facility] [place] [facility] [address] [id number] [place] [address]- 0723 Apr, [facility] [address] [id number] [place] [address]- 5725 Apr, [facility] [place] [facility] [address] [id number] [place] [address]- 6377 Apr, [facility] [facility] [address] [id number] [place] [address]- 2001 Apr, [facility] [address] [id number] [place] [address]- 1284 Apr, [facility] [address] [id number] [place] [address]- 0942 Mar, [facility] [address] [id number] [address]- 1190 Mar, [facility] [address] [id number] [place] [address]- 2759 Mar, [facility] [address] [id number] [place] [address]- 3867 Mar, [facility] [place] [address] [id number] [place] [address]- 9006 Mar, [facility] [address] [id number] [place] [address]- 1864 Mar, [facility] [address] [id number] [place] [address]- 2593 Feb, [facility] [address] [id number] [place] [address]- 0170 Feb, [facility] [address] [facility] [id number] [place] [address]- 0531 Feb, [facility] [place] [facility] [address] [id number] [place] [address]- 3765 Jan, [facility] [place] [facility] [address] [facility] [id number] [place] [address]- 6398 30 Jan, 2013 [facility] [address] [facility] [id number] [place] [address]- 5529 Jan, [facility] [place] [facility] [address] [id number] [address]- 9264 28 Jan, 2013 [facility] [facility] [address] [id number] [place] [address]- 0089 15 Jan, 2013 [facility] [place] [facility] [address] [id number] [place] [address]- 6908 15 Jan, 2013 [facility] [place] [facility] [address] [facility] [id number] [place] [address]- 3922 Jan, [facility] [place] [facility] [address] [facility] [id number] [place] [address]- 7756 11 Jan, 2013 [facility] [facility] [address] [id number] [place] [address]- 2994 Jan, [facility] [place] [facility] [address] [id number] [place] [address]- 5102 Jan, [facility] [place] [facility] [address] [id number] [place] [address]- 3506 30 Dec, 2012 [facility] [place] [facility] [address] [id number] [place] [address]- 7646 25 Dec, 2012 [facility] [place] [facility] [address] [id number] [place] [address]- 2511 11 Dec, 2012 [facility] [place] [facility] [address] [id number] [place] [address]- 3332 Dec, 2012 [facility] [place] [facility] [address] [id number] [place] [address]- 7753 05 Dec, 2012 [facility] [place] [facility] [address] [id number] [place] [address]- 6440 Dec, 2012 [facility] [place] [facility] [address] [id number] [place] [address]- 7711 Nov, [facility] [place] [facility] [address] [id number] [place] [address]- 0458 Nov, [facility] [place] [facility] [address] [id number] [place] [address]- 9616 Nov, [facility] [place] [facility] [address] [id number] [place] [address]- 1150 Nov, [facility] [place] [facility] [address] [id number] [place] [address] 2545 Nov, [facility] [place] [facility] [address] [id number] [place] [address]- 9046 Nov, [facility] [place] [facility] [address] [id number] [place] [address]- 2547 Nov, [facility] [place] [facility] [address] [id number] [place] [address]- 6192 Nov, [facility] [address] [id number] [place] [address]- 7348 Nov, [facility] [place] [facility] [address] [id number] [place] [address]- 4844 Nov, [facility] [place] [facility] [address] [id number] [place] [address]- 1561 Nov, [facility] [place] [facility] [address] [id number] [place] [address]- 8227 Nov, [facility] [place] [facility] [address] [id number] [place] [address]- 7009 Oct, [facility] [place] [facility] [address] [id number] [place] [address]- 9885 Oct, [facility] [place] [facility] [address] [id number] [place] [address]- 3463 Oct, [facility] [place] [facility] [address] [id number] [place] [address]- 6125 Sep, [facility] [place] [facility] [address] [id number] [place] [address]- 6566 Sep, [facility] [place] [facility] [address] [id number] [place] [address]- 1336 Sep, [facility] [place] [facility] [address] [id number] [place] [address]- 9358 August, [facility] [place] [facility] [address] [id number] [place] [address]- 3434 August, [facility] [place] [facility] [address] [id number] [place] [address]- 3225 August, [facility] [place] [facility] [address] [id number] [place] [address]- 6251 August, [facility] [place] [facility] [address] [id number] [place] [address]- 0911 August, [facility] [place] [facility] [address] [id number] [place] [address]- 2556 August, [facility] [address] [id number] [place] [address]- 2554 30 Jul, 2012 [facility] [place] [facility] [address] [id number] [place] [address]- 6552 15 Jul, 2012 [facility] [address] [id number] [place] [address]- 5676 Jul, [facility] [place] [facility] [address] [id number] [place] [address]- 1923 Jul, [facility] [address] [id number] [place] [address]- 7736 Jul, [facility] [place] [facility] [address] [id number] [place] [address]- 5756 Jul, [facility] [address] [id number] [place] [address]- 2225 2012 [facility] [address] [id number] [place] [address]- 9497 20 Jun, 2012 [facility] [address] [id number] [place] [address]- 8208 18 Jun, 2012 [facility] [address] [id number] [place] [address]- 4595 14 Jun, 2012 [facility] [place] [facility] [address] [id number] [place] [address]- 3547 04 Jun, 2012 [facility] [place] [facility] [address] [id number] [place] [address]- 0659 May, [facility] [place] [facility] [address] [id number] [place] [address]- 8298 12 May, 2012 [facility] [place] [facility] [address] [id number] [place] [address]- 9229 May, [facility] [place] [facility] [address] [id number] [place] [address]- 0731 08 May, 2012 [facility] [address] [id number] [place] [address]- 7715 Apr, [facility] [place] [facility] [address] [id number] [place] [address]- 5206 Apr, [facility] [place] [facility] [address] [id number] [place] [address]- 6193 Apr, [facility] [place] [facility] [address] [id number] [place] [address]- 9881 Mar, [facility] [place] [facility] [address] [id number] [place] [address]- 9023 Mar, [facility] [place] [facility] [address] [id number] [place] [address]- [address] Mar, [facility] [place] [facility] [address] [id number] [place] [address] Mar, [facility] [place] [facility] [address] [id number] [place] [address] Mar, [facility] [place] [facility] [address] [id number] [place] [address] Mar, [facility] [place] [facility] [address] [id number] [place] [address] Mar, [facility] [place] [facility] [address] [id number] [place] [address] Mar, [facility] [place] [facility] [address] [id number] [place] [address] Feb, [facility] [place] [facility] [address] [id number] [place] [address] Feb, [facility] [place] [facility] [address] [id number] [place] [address] Feb, [facility] [place] [facility] [address] [id number] [place] [address] 9687 Feb, [facility] [place] [facility] [address] [id number] [place] [address] Feb, [facility] [place] [facility] [address] [id number] [place] [address] 8[address] Feb, [facility] [place] [facility] [address] [id number] [place] [address] Feb, [facility] [place] [facility] [address] [facility] [id number] [place] [address]- [address] Feb, [facility] [place] [facility] [address] [id number] [place] [address] Feb, [facility] [place] [facility] [address] [id number] [place] [address]- 6648 Feb, [facility] [place] [facility] [address] [facility] [id number] [place] [address] 1547 Feb, [facility] [place] [facility] [address] [id number] [place] [address] Feb, [facility] [place] [facility] [address] [facility] [id number] [place] [address]- 47[address] Feb, [facility] [place] [facility] [address] [facility] [id number] [place] [address]- [address] Feb, [facility] [place] [facility] [address] [facility] [id number] [place] [address] 385[address] Feb, [facility] [place] [facility] [address] [facility] [id number] [place] [address] Feb, [facility] [place] [facility] [address] [facility] [id number] [place] [address]448 Feb, [facility] [place] [facility] [address] [facility] [id number] [place] [address] Feb, [facility] [place] [facility] [address] [facility] [id number] [place] [address] Jan, [facility] [place] [facility] [address] [facility] [id number] [place] [address] Jan, [facility] [place] [facility] [address] [id number] [place] [address]- [address] 22 Jan, 2011 [facility] [place] [facility] [address] [id number] [place] [address]- 8689 20 Jan, 2012 [facility] [place] [facility] [address] [id number] [place] [address]- 2408 20 Jan, 2012 [facility] [place] [facility] [address] [id number] [place] [address]- [address] 19 Jan, 2012 [facility] [place] [facility] [address] [id number] [place] [address]- [address]69 18 Jan, 2012 [facility] [place] [facility] [address] [id number] [place] [address]- 7708 18 Jan, 2012 [facility] [place] [facility] [address] [id number] [place] [address]- 2770 15 Jan, 2012 [facility] [place] [facility] [address] [id number] [place] [address]- 8471 15 Jan, 2012 [facility] [place] [facility] [address] [id number] [place] [address]- 2220 11 Jan, 2012 [facility] [place] [facility] [address] [id number] [place] [address]- [address]386 11 Jan, 2012 [facility] [place] [facility] [address] [facility] [id number] [place] [address] 1696 10 Jan, 2012 [facility] [place] [facility] [address] [id number] [place] [address]- 8570 09 Jan, 2012 [facility] [place] [facility] [address] [id number] [place] [address]- 9081 02 Jan, 2012 [facility] [place] [facility] [address] [id number] [place] [address]- [address]6 29 Dec, 2011 [facility] [place] [facility] [address] [id number] [place] [address]- 0806 28 Dec, 2011 [facility] [place] [facility] [address] [id number] [place] [address]- 7821 Dec, [facility] [place] [facility] [address] [id number] [place] [address]- 8771 Dec, [facility] [place] [facility] [address] [id number] [place] [address]- 8544 Nov, [facility] [place] [facility] [address] [id number] [place] [address]- 7279 Nov, [facility] [place] [facility] [address] [id number] [place] [address]- 8195 Nov, [facility] [place] [facility] [address] [id number] [place] [address]- 7954 Nov, [facility] [place] [facility] [address] [id number] [place] [address]- 1565 Nov, [facility] [place] [facility] [address] [id number] [place] [address]- 0662 Nov, [facility] [place] [facility] [address] [id number] [place] [address]- 8888 Nov, [facility] [place] [facility] [address] [id number] [place] [address]- 4747 Nov, [facility] [place] [facility] [address] [id number] [place] [address]- 2308 Nov, [facility] [place] [facility] [address] [id number] [place] [address]- 3465 Nov, [facility] [place] [facility] [address] [id number] [place] [address]- 6963 Nov, [facility] [place] [facility] [address] [id number] [place] [address]- 2868 Oct, [facility] [place] [facility] [address] [id number] [place] [address]- 4227 Oct, [facility] [place] [facility] [address] [id number] [place] [address]- 9895 Oct, [facility] [place] [facility] [address] [id number] [place] [address]- 8067 Oct, [facility] [place] [facility] [address] [id number] [place] [address]- 5684 Oct, [facility] [place] [facility] [address] [id number] [place] [address]- 7146 Oct, [facility] [place] [facility] [address] [id number] [place] [address]- 8466 Oct, [facility] [place] [facility] [address] [id number] [place] [address]- 7254 Oct, [facility] [place] [facility] [address] [id number] [place] [address]- 2874 Sep, [facility] [place] [facility] [address] [id number] [place] [address]- 3074 Sep, [facility] [place] [facility] [address] [id number] [place] [address]- 9099 Sep, [facility] [place] [facility] [address] [id number] [place] [address]- 6049 Sep, [facility] [place] [facility] [address] [id number] [place] [address]- 0547 Sep, [facility] [place] [facility] [address] [id number] [place] [address]- 3876 Sep, [facility] [place] [facility] [address] [id number] [place] [address]- 0510 Sep, [facility] [place] [facility] [address] [id number] [place] [address] August, [facility] [place] [facility] [address] [id number] [place] [address] August, [facility] [place] [facility] [address] [id number] [place] [address] August, [facility] [place] [facility] [address] [id number] [place] [address] August, [facility] [place] [facility] [address] [id number] [place] [address] August, [facility] [address] [id number] [place] [address] August, [facility] [place] [facility] [address] [id number] [place] [address] August, [facility] [address] [id number] [place] [address] August, [facility] [address] [id number] [place] [address] Jul, [facility] [place] [facility] [address] [id number] [place] [address] 17 Jul, 2011 [facility] [address] [id number] [place] [address] Jul, [facility] [address] [id number] [place] [address] Jul, [facility] [address] [id number] [place] [address] Jul, [facility] [address] [id number] [place] [address]376 [address], [address] [facility] [place] [facility] [address] [id number] [place] [address] 2011 [facility] [place] [facility] [address] [id number] [place] [address] 20 Jun, 2011 [facility] [place] [facility] [address] [id number] [place] [address] 19 Jun, 2011 [facility] [place] [facility] [address] [id number] [place] [address] 12 Jun, 2011 [facility] [place] [facility] [address] [id number] [place] [address] Jun, [facility] [place] [facility] [address] [id number] [place] [address] Jun, [facility] [address] [id number] [place] [address] Jun, [facility] [address] [id number] [place] [address] Jun, [facility] [address] [id number] [place] [address] May, [facility] [address] [id number] [place] [address] May, [facility] [address] [id number] [place] [address] May, [facility] [address] [id number] [place] [address] May, [facility] [address] [id number] [place] [address] May, [facility] [address] [id number] [place] [address] May, [facility] [address] [id number] [place] [address] May, [facility] [address] [facility] [id number] [place] [address] May, [facility] [address] [facility] [id number] [place] [address] Apr, [facility] [place] [facility] [address] [id number] [place] [address] Apr, [facility] [place] [facility] [address] [id number] [place] [address] Apr, [facility] [place] [facility] [address] [id number] [place] [address] Apr, [facility] [address] [facility] [id number] [address] Apr, [facility] [address] [id number] [place] [address] 05 Apr, 2011 [facility] [address] [id number] [place] [address] Mar, [facility] [place] [facility] [address] [id number] [place] [address] Mar, [facility] [place] [facility] [address] [id number] [place] [address] Mar, [facility] [address] [id number] [place] [address] Mar, [facility] [place] [facility] [address] [id number] [place] [address] 15 Mar, 2011 [facility] [address] [id number] [place] [address] Mar, [facility] [place] [facility] [address] [id number] [place] [address] Mar, [facility] [place] [facility] [address] [id number] [place] [address] 267[address] Mar, [facility] [place] [facility] [address] [id number] [place] [address] Mar, [facility] [place] [facility] [address] [id number] [place] [address] Mar, [facility] [place] [facility] [address] [id number] [place] [address] Mar, [facility] [place] [facility] [address] [id number] [place] [address] Mar, [facility] [place] [facility] [address] [id number] [place] [address]- 1609 Mar, [facility] [place] [facility] [address] [id number] [place] [address] Feb, [facility] [place] [facility] [address] [id number] [place] [address] Feb, [facility] [place] [facility] [address] [id number] [place] [address] 17 Feb, 2011 [facility] [place] [facility] [address] [id number] [place] [address] Feb, [facility] [place] [facility] [address] [id number] [place] [address] Feb, [facility] [place] [facility] [address] [id number] [place] [address] Feb, [facility] [place] [facility] [address] [id number] [place] [address] Feb, [facility] [place] [facility] [address] [id number] [place] [address] Jan, [facility] [place] [facility] [address] [id number] [place] [address]- [address] Jan, [facility] [place] [facility] [address] [id number] [place] [address] Jan, [facility] [place] [facility] [address] [id number] [place] [address]67 Nov, [facility] [place] [facility] [address] [id number] [place] [address]- 37[address] Mar, [facility] [place] [facility] [address] [id number] [address]- [address] Mar, [facility] [place] [facility] [address] [id number] [address] 20 Mar, 2010 [facility] [place] [facility] [address] [id number] [place] [address]- 98[address] 13 Mar, 2010 [facility] [place] [facility] [address] [id number] [place] [address] 07 Mar, 2010 [facility] [place] [facility] [address] [id number] [place] [address]- [address] 30 Feb, 2010 [facility] [place] [facility] [address] [facility] [id number] [place] [address]- [address] 30 Feb, 2010 [facility] [address] [facility] [id number] [place] [address] 24 Feb, 2010 [facility] [address] [facility] [id number] [place] [address]- [address] 19 Feb, 2010 [facility] [address] [facility] [id number] [address]- [address] 19 Feb, 2010 [facility] [address] [facility] [id number] [place] [address]- [address] 15 Feb, 2010 IMMUNIZATIONS No Known Immunizations SOCIAL HISTORY Never Assessed REASON FOR VISIT PLAN OF CARE VITAL SIGNS MEDICATIONS Unknown [...] History Bilateral Mastectomy 02/01/2017 Hospitalization History surgeries Hospitalization History [facility] ED 10/06/2017
--- OUTSIDE RECORDS SUMMARY | 2017-12-22 03:29 | XMS REPORT ---
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 [address]- 9301 Jun, [facility] [place] [facility] [address] [id number] [place] [address]- 9017 Jun, [facility] [place] [facility] [address] [id number], [place] [address]- 9001 Jun, [facility] [place] [facility] [address] [id number], [place] [address]- 1279 19 Jun, 2014 [facility] [place] [facility] [address] [id number] [place] [address]- 3071 18 Jun, 2014 [facility] [place] [facility] [address] [id number] [place] [address]- 7690 18 Jun, 2014 [facility] [place] [facility] [address] [id number] [place] [address]- 0292 18 Jun, 2014 [facility] [place] [facility] [address] [id number] [place] [address]- 3572 18 Jun, 2014 [facility] [place] [facility] [address] [id number] [place] [address]- 8982 17 Jun, 2014 [facility] [place] [facility] [address] [id number] [place] [address]- 4866 17 Jun, 2014 [facility] [place] [facility] [address] [id number] [place] [address]- 1184 17 Jun, 2014 [facility] [place] [facility] [address] [id number] [place] [address]- 9172 17 Jun, 2014 [facility] [place] [facility] [address] [id number] [place] [address]- 0170 13 Jun, 2014 [facility] [place] [facility] [address] [id number] [place] [address]- 5642 13 Jun, 2014 [facility] [place] [facility] [address] [id number] [place] [address]- 0891 12 Jun, 2014 [facility] [place] [facility] [address] [id number] [place] [address]- 6178 12 Jun, 2014 [facility] [place] [facility] [address] [id number] [place] [address]- 5717 10 Jun, 2014 [facility] [place] [facility] [address] [id number] [place] [address]- 9346 10 Jun, 2014 [facility] [place] [facility] [address] [id number] [place] [address]- 4145 10 Jun, 2014 [facility] [place] [facility] [address] [id number] [place] [address]- 6912 10 Jun, 2014 [facility] [place] [facility] [address] [id number] [place] [address]- 2159 06 Jun, 2014 [facility] [place] [facility] [address] [id number] [place] [address]- 2541 06 Jun, 2014 [facility] [place] [facility] [address] [id number] [place] [address]- 2675 Jun, 2014 [facility] [place] [facility] [address] [id number] [place] [address]- 5391 Jun, [facility] [place] [facility] [address] [id number] [place] [address]- 0983 Jun, [facility] [place] [facility] [address] [id number] [place] [address]- 3154 Jun, [facility] [place] [facility] [address] [id number] [place] [address]- 1509 May, 2014 [facility] [place] [facility] [address] [id number] [place] [address]- 4605 May, 2014 [facility] [place] [facility] [address] [id number] [place] [address]- 1869 May, 2014 [facility] [place] [facility] [address] [id number] [place] [address]- 3528 May, 2014 [facility] [place] [facility] [address] [id number] [place] [address]- 9860 May, 2014 [facility] [place] [facility] [address] [id number] [place] [address]- 9164 May, 2014 [facility] [place] [facility] [address] [id number] [place] [address]- 0492 May, 2014 [facility] [place] [facility] [address] [id number] [place] [address]- 1634 May, 2014 [facility] [place] [facility] [address] [id number] [place] [address]- 2867 May, 2014 [facility] [place] [facility] [address] [id number] [place] [address]- 5262 May, 2014 [facility] [place] [facility] [address] [id number] [place] [address]- 0268 May, 2014 [facility] [place] [facility] [address] [facility] [id number] [place] [address]- 3477 May, 2014 [facility] [place] [facility] [address] [id number] [place] [address]- 8969 05 May, 2014 [facility] [place] [facility] [address] [id number] [place] [address]- 2597 May, [facility] [place] [facility] [address] [id number] [place] [address]- 1806 May, [facility] [place] [facility] [address] [id number] [place] [address]- 1799 May, [facility] [place] [facility] [address] [id number] [place] [address]- 6233 Apr, [facility] [place] [facility] [address] [id number] [place] [address]- 1578 Apr, [facility] [place] [facility] [address] [id number] [place] [address]- 5445 Apr, [facility] [place] [facility] [address] [id number] [place] [address]- 5526 Apr, [facility] [place] [facility] [address] [id number] [place] [address]- 1309 Apr, [facility] [place] [facility] [address] [id number] [place] [address]- 0725 Apr, [facility] [place] [facility] [address] [id number] [place] [address]- 6985 Apr, [facility] [place] [facility] [address] [id number] [place] [address]- 3328 Apr, [facility] [place] [facility] [address] [id number] [place] [address]- 6358 Apr, [facility] [place] [facility] [address] [id number] [place] [address]- 9840 Apr, [facility] [place] [facility] [address] [id number] [place] [address]- 1457 Apr, [facility] [place] [facility] [address] [id number] [place] [address]- 4500 Apr, [facility] [place] [facility] [address] [id number] [place] [address]- 3797 Apr, [facility] [place] [facility] [address] [id number] [place] [address]- 7986 Apr, [facility] [place] [facility] [address] [id number] [place] [address]- 0481 Apr, [facility] [place] [facility] [address] [id number] [place] [address]- 8628 Mar, [facility] [place] [facility] [address] [id number] [place] [address] Mar, [facility] [place] [facility] [address] [id number] [place] [address] Mar, [facility] [place] [facility] [address] [id number] [place] [address] Mar, [facility] [place] [facility] [address] [id number] [place] [address] Mar, [facility] [place] [facility] [address] [id number] [place] [address] Mar, [facility] [place] [facility] [address] [id number] [place] [address] 15 Mar, 2014 [facility] [place] [facility] [address] [id number] [place] [address] 15 Mar, 2014 [facility] [place] [facility] [address] [id number], [place] [address] 15 Mar, 2014 [facility] [place] [facility] [address] [id number] [place] [address] 15 Mar, 2014 [facility] [place] [facility] [address] [id number] [place] [address] 15 Mar, 2014 [facility] [place] [facility] [address] [id number] [place] [address] 15 Mar, 2014 [facility] [place] [facility] [address] [id number] [place] [address] Mar, [facility] [place] [facility] [address] [id number] [place] [address] Mar, [facility] [place] [facility] [address] [id number] [place] [address] 48[address] Mar, [facility] [place] [facility] [address] [id number] [place] [address] Mar, [facility] [place] [facility] [address] [id number] [place] [address] Mar, [facility] [place] [facility] [address] [id number] [place] [address] Mar, [facility] [place] [facility] [address] [id number] [place] [address] Feb, [facility] [place] [facility] [address] [id number] [place] [address]- [address] Feb, [facility] [place] [facility] [address] [id number] [place] [address]- [address] Feb, [facility] [place] [facility] [address] [id number] [place] [address] Feb, [facility] [place] [facility] [address] [facility] [id number] [place] [address] Feb, [facility] [place] [facility] [address] [id number] [place] [address] Feb, [facility] [place] [facility] [address] [id number] [place] [address]- [address] Feb, [facility] [place] [facility] [address] [id number] [place] [address] Feb, [facility] [place] [facility] [address] [id number] [place] [address]- [address] Jan, [facility] [place] [facility] [address] [id number] [place] [address] 69[address] Jan, [facility] [place] [facility] [address] [id number] [place] [address] Jan, [facility] [place] [facility] [address] [id number] [place] [address]- [address] Jan, [facility] [place] [facility] [address] [id number] [place] [address]- [address] Jan, [facility] [place] [facility] [address] [id number] [place] [address] 24[address] Jan, [facility] [place] [facility] [address] [id number] [place] [address]- 1496 Jan, [facility] [place] [facility] [address] [id number] [place] [address] Jan, [facility] [place] [facility] [address] [id number] [place] [address]- 17[address] Jan, [facility] [place] [facility] [address] [id number] [place] [address]- [address] Jan, [facility] [place] [facility] [address] [id number] [place] [address] 1534 Jan, [facility] [place] [facility] [address] [id number] [place] [address]- 21[address] Jan, [facility] [place] [facility] [address] [id number] [place] [address] 3579 Jan, [facility] [place] [facility] [address] [id number], [place] [address] Jan, [facility] [place] [facility] [address] [id number] [place] [address]- 26[address] Jan, [facility] [place] [facility] [address] [id number] [place] [address]- [address] 16 Jan, 2014 [facility] [place] [facility] [address] [id number], [place] [address] Jan, [facility] [place] [facility] [address] [id number], [place] [address] 13 Jan, 2014 [facility] [place] [facility] [address] [id number] [place] [address] 2546 29 Sep, 2013 [facility] [place] [facility] [address] [id number] [place] [address] 2546 29 Dec, 2013 [facility] [place] [facility] [address] [id number] [place] [address] 2546 26 Dec, 2013 [facility] [place] [facility] [address] [id number] [place] [address] 2546 26 Dec, 2013 [facility] [place] [facility] [address] [id number] [place] [address] 2547 26 Dec, 2013 [facility] [place] [facility] [address] [id number] [place] [address]- 8989 26 Dec, 2013 [facility] [place] [facility] [address] [id number] [place] [address]- [address] 23 Dec, 2013 [facility] [place] [facility] [address] [id number] [place] [address]- 1530 23 Dec, 2013 [facility] [place] [facility] [address] [id number] [place] [address] 2549 22 Dec, 2013 [facility] [place] [facility] [address] [id number] [place] [address] 2548 22 Dec, 2013 [facility] [place] [facility] [address] [id number], [place] [address]48 16 Dec, 2013 [facility] [place] [facility] [address] [id number], [place] [address]- [address] 16 Dec, 2013 [facility] [place] [facility] [address] [id number], [place] [address] 2546 15 Dec, 2013 [facility] [place] [facility] [address] [id number] [place] [address] 2546 15 Dec, 2013 [facility] [place] [facility] [address] [id number] [place] [address]- [address]40 09 Dec, 2013 [facility] [place] [facility] [address] [id number] [place] [address] Dec, [facility] [place] [facility] [address] [id number] [place] [address]- [address]10 Dec, [facility] [place] [facility] [address] [id number] [place] [address] Nov, [facility] [place] [facility] [address] [id number] [place] [address] 1187 Nov, [facility] [place] [facility] [address] [id number] [place] [address] 3662 Nov, [facility] [place] [facility] [address] [id number] [place] [address]- 0145 Nov, [facility] [place] [facility] [address] [id number] [place] [address] 6176 Nov, [facility] [place] [facility] [address] [id number] [place] [address]- 4533 Nov, [facility] [place] [facility] [address] [id number] [place] [address]- 8445 Nov, [facility] [place] [facility] [address] [id number] [place] [address]- 3552 Nov, [facility] [place] [facility] [address] [id number] [place] [address]- 0667 Nov, [facility] [place] [facility] [address] [id number] [place] [address]- 4820 Nov, [facility] [place] [facility] [address] [id number] [place] [address] 8390 Nov, [facility] [place] [facility] [address] [id number] [place] [address]- 6484 Nov, [facility] [place] [facility] [address] [id number] [place] [address] 3611 Nov, [facility] [place] [facility] [address] [id number] [place] [address] 1990 Nov, [facility] [place] [facility] [address] [id number] [place] [address]- 4445 Nov, [facility] [place] [facility] [address] [id number] [place] [address]- 6065 Nov, [facility] [place] [facility] [address] [id number] [place] [address]- 5700 Nov, [facility] [place] [facility] [address] [id number] [place] [address]- 1711 Nov, [facility] [place] [facility] [address] [id number] [place] [address]- 7799 Nov, [facility] [place] [facility] [address] [id number] [place] [address]- 4586 Nov, [facility] [place] [facility] [address] [id number] [place] [address]- 4053 Nov, [facility] [place] [facility] [address] [id number] [place] [address]- 9284 Oct, [facility] [place] [facility] [address] [id number] [place] [address]- 7082 Oct, [facility] [place] [facility] [address] [id number] [place] [address]- 9824 Oct, [facility] [place] [facility] [address] [id number] [place] [address]- 3533 Oct, [facility] [place] [facility] [address] [id number] [place] [address]- 5173 Oct, [facility] [place] [facility] [address] [id number] [place] [address]- 7554 Oct, [facility] [place] [facility] [address] [id number] [place] [address]- 5178 Oct, [facility] [place] [facility] [address] [id number] [place] [address]- 4740 Oct, [facility] [place] [facility] [address] [id number] [place] [address]- 7424 15 Oct, 2013 [facility] [place] [facility] [address] [id number] [place] [address]- 8348 14 Oct, 2013 [facility] [place] [facility] [address] [id number] [place] [address]- 1446 Oct, [facility] [place] [facility] [address] [id number] [place] [address]- 6304 Oct, [facility] [place] [facility] [address] [id number] [place] [address]- 7584 Oct, [facility] [place] [facility] [address] [id number] [place] [address]- 3102 Oct, [facility] [place] [facility] [address] [id number] [place] [address]- 9050 Oct, [facility] [place] [facility] [address] [id number] [place] [address]- 6650 Sep, [facility] [place] [facility] [address] [id number] [place] [address]- 1695 Sep, [facility] [place] [facility] [address] [id number] [place] [address]- 8131 Sep, [facility] [place] [facility] [address] [id number] [place] [address]- 8828 Sep, [facility] [place] [facility] [address] [id number] [place] [address]- 2419 Sep, [facility] [place] [facility] [address] [id number] [place] [address]- 3743 Sep, [facility] [place] [facility] [address] [id number] [place] [address]- 8141 Sep, [facility] [place] [facility] [address] [id number] [place] [address]- 4267 Sep, [facility] [place] [facility] [address] [id number] [place] [address]- 9512 17 Sep, 2013 [facility] [place] [facility] [address] [id number] [place] [address]- 7802 Sep, [facility] [place] [facility] [address] [id number] [place] [address]- 4609 Sep, [facility] [place] [facility] [address] [id number] [place] [address]- 9306 Sep, [facility] [place] [facility] [address] [id number] [place] [address]- 7636 Sep, [facility] [place] [facility] [address] [id number] [place] [address]- 9985 Sep, [facility] [place] [facility] [address] [id number] [place] [address]- 1438 Sep, [facility] [place] [facility] [address] [id number] [place] [address]- 8026 Sep, [facility] [place] [facility] [address] [id number] [place] [address]- 5378 Sep, [facility] [place] [facility] [address] [id number] [place] [address]- 6059 Sep, [facility] [place] [facility] [address] [id number] [place] [address]- 9911 Sep, [facility] [place] [facility] [address] [id number] [place] [address]- 7162 Sep, [facility] [place] [facility] [address] [id number] [place] [address]- 6582 Sep, [facility] [place] [facility] [address] [id number] [place] [address]- 1619 Sep, [facility] [place] [facility] [address] [id number] [place] [address]- 6794 August, [facility] [place] [facility] [address] [id number] [place] [address]- 5583 August, [facility] [place] [facility] [address] [id number] [place] [address]- 9296 August, [facility] [address] [id number] [place] [address]- 6261 August, [facility] [place] [facility] [address] [id number] [place] [address]- 1816 August, [facility] [place] [facility] [address] [id number] [place] [address]- 9359 August, [facility] [place] [facility] [address] [id number] [place] [address]- 1085 August, [facility] [place] [facility] [address] [id number] [place] [address]- 2552 August, [facility] [place] [facility] [address] [id number] [place] [address]- 0714 August, [facility] [place] [facility] [address] [id number] [place] [address]- 9459 August, [facility] [place] [facility] [address] [id number] [place] [address]- 5658 August, [facility] [place] [facility] [address] [id number] [place] [address]- 7050 August, [facility] [place] [facility] [address] [id number] [place] [address]- 3455 August, [facility] [place] [facility] [address] [id number] [place] [address]- 0009 August, [facility] [place] [facility] [address] [id number] [place] [address]- 4688 August, [facility] [place] [facility] [address] [id number] [place] [address]- 2931 August, [facility] [place] [facility] [address] [id number] [place] [address]- 4024 August, [facility] [place] [facility] [address] [id number] [place] [address]- 3392 August, [facility] [place] [facility] [address] [id number] [place] [address]- 7419 Jul, [facility] [place] [facility] [address] [id number] [place] [address]- 4545 Jul, [facility] [place] [facility] [address] [id number] [place] [address]- 8422 Jul, [facility] [place] [facility] [address] [id number] [place] [address]- 3504 Jul, [facility] [place] [facility] [address] [id number] [place] [address]- 1465 Jul, [facility] [place] [facility] [address] [id number] [place] [address]- 8900 Jul, [facility] [place] [facility] [address] [id number] [place] [address]- 9167 Jul, [facility] [place] [facility] [address] [id number] [place] [address]- 0067 Jul, [facility] [place] [facility] [address] [id number] [place] [address]- 6006 Jul, [facility] [place] [facility] [address] [id number] [place] [address]- 2976 Jul, [facility] [place] [facility] [address] [id number] [place] [address]- 5978 Jul, [facility] [place] [facility] [address] [id number] [place] [address]- 4991 Jul, [facility] [place] [facility] [address] [id number] [place] [address]- 3456 Jul, [facility] [place] [facility] [address] [id number] [place] [address]- 4023 Jul, [facility] [place] [facility] [address] [id number] [place] [address]- 4241 Jul, [facility] [place] [facility] [address] [id number] [place] [address]- 3345 Jul, [facility] [place] [facility] [address] [id number] [place] [address]- 8257 17 Jul, 2013 [facility] [place] [facility] [address] [id number] [place] [address]- 2945 16 Jul, 2013 [facility] [place] [facility] [address] [id number] [place] [address]- 6806 16 Jul, 2013 [facility] [place] [facility] [address] [id number] [place] [address]- 5434 15 Jul, 2013 [facility] [place] [facility] [address] [id number] [place] [address]- 3518 15 Jul, 2013 [facility] [place] [facility] [address] [id number] [place] [address]- 7806 14 Jul, 2013 [facility] [place] [facility] [address] [id number] [place] [address]- 2644 Jul, [facility] [place] [facility] [address] [id number] [place] [address]- 9624 Jul, [facility] [place] [facility] [address] [id number] [place] [address]- 9076 Jul, [facility] [place] [facility] [address] [id number] [place] [address]- 3440 Jul, [facility] [place] [facility] [address] [id number] [place] [address]- 9464 Jul, [facility] [place] [facility] [address] [id number] [place] [address]- 2691 Jul, [facility] [place] [facility] [address] [id number] [place] [address]- 8413 Jul, [facility] [place] [facility] [address] [id number] [place] [address]- 7891 Jun, [facility] [place] [facility] [address] [id number] [place] [address]- 1422 Jun, [facility] [place] [facility] [address] [id number] [place] [address]- 2373 17 Jun, 2013 [facility] [place] [facility] [address] [id number] [place] [address]- 5706 17 Jun, 2013 [facility] [place] [facility] [address] [id number] [place] [address]- 6843 Jun, [facility] [place] [facility] [address] [id number] [place] [address]- 7957 Jun, [facility] [place] [facility] [address] [id number] [place] [address]- 3212 Jun, [facility] [place] [facility] [address] [id number] [place] [address]- 1542 Jun, [facility] [place] [facility] [address] [id number] [place] [address]- 2018 Jun, [facility] [place] [facility] [address] [facility] [id number] [place] [address]- 7722 Jun, [facility] [place] [facility] [address] [id number] [place] [address]- 6034 Jun, [facility] [place] [facility] [address] [id number] [place] [address]- 8991 Jun, [facility] [place] [facility] [address] [facility] [id number] [place] [address]- 9803 May, [facility] [place] [facility] [address] [id number] [place] [address]- 7112 May, [facility] [place] [facility] [address] [id number] [place] [address]- 4201 May, [facility] [place] [facility] [address] [id number] [place] [address]- 1773 May, [facility] [place] [facility] [address] [id number] [place] [address]- 6049 May, [facility] [place] [facility] [address] [facility] [id number] [place] [address]- 3251 May, [facility] [place] [facility] [address] [id number] [place] [address]- 7321 May, [facility] [place] [facility] [address] [id number] [place] [address]- 5208 May, [facility] [place] [facility] [address] [id number] [place] [address]- 2366 May, [facility] [place] [facility] [address] [id number] [place] [address]- 8329 May, [facility] [place] [facility] [address] [id number] [place] [address]- 4636 Apr, [facility] [place] [facility] [address] [id number] [place] [address]- 1519 Apr, [facility] [place] [facility] [address] [id number] [place] [address]- 3739 Apr, [facility] [place] [facility] [address] [id number] [place] [address]- 6781 Apr, [facility] [place] [facility] [address] [id number] [place] [address]- 0765 Apr, [facility] [place] [facility] [address] [id number] [place] [address]- 5796 Apr, [facility] [place] [facility] [address] [id number] [place] [address]- 1943 Apr, [facility] [place] [facility] [address] [id number] [place] [address]- 3828 Apr, [facility] [place] [facility] [address] [id number] [place] [address]- 5280 Apr, [facility] [place] [facility] [address] [id number] [place] [address]- 4334 Apr, [facility] [place] [facility] [address] [id number] [place] [address]- 6698 Mar, [facility] [place] [facility] [address] [id number], [place] [address]- 6625 Mar, [facility] [place] [facility] [address] [id number] [place] [address]- 5258 Mar, [facility] [place] [facility] [address] [id number] [place] [address]- 6168 Mar, [facility] [place] [facility] [address] [id number] [place] [address]- 1276 Mar, [facility] [place] [facility] [address] [id number] [place] [address]- 5368 Mar, [facility] [place] [facility] [address] [id number] [place] [address]- 0064 Feb, [facility] [place] [facility] [address] [id number] [place] [address]- 8349 Feb, [facility] [place] [facility] [address] [facility] [id number] [place] [address]- 1515 Feb, [facility] [place] [facility] [address] [id number] [place] [address]- 5989 Jan, [facility] [place] [facility] [address] [facility] [id number] [place] [address]- 7740 30 Jan, 2013 [facility] [place] [facility] [address] [facility] [id number] [place] [address]- 7981 Jan, [facility] [place] [facility] [address] [id number], [place] [address]- 1122 28 Jan, 2013 [facility] [place] [facility] [address] [id number], [place] [address]- 7561 15 Jan, 2013 [facility] [place] [facility] [address] [id number] [place] [address]- 6382 15 Jan, 2013 [facility] [place] [facility] [address] [facility] [id number], [place] [address]- 9913 Jan, [facility] [place] [facility] [address] [facility] [id number], [place] [address]- 2133 11 Jan, 2013 [facility] [place] [facility] [address] [id number] [place] [address]- 2175 Jan, [facility] [place] [facility] [address] [id number] [place] [address]- 6737 Jan, [facility] [place] [facility] [address] [id number] [place] [address]- 0276 30 Dec, 2012 [facility] [place] [facility] [address] [id number] [place] [address]- 1096 25 Dec, 2012 [facility] [place] [facility] [address] [id number] [place] [address]- 3728 11 Dec, 2012 [facility] [place] [facility] [address] [id number] [place] [address]- 6039 Dec, 2012 [facility] [place] [facility] [address] [id number] [place] [address]- 3955 05 Dec, 2012 [facility] [place] [facility] [address] [id number] [place] [address]- 7675 Dec, 2012 [facility] [place] [facility] [address] [id number] [place] [address]- 8889 Nov, [facility] [place] [facility] [address] [id number] [place] [address]- 2522 Nov, [facility] [place] [facility] [address] [id number] [place] [address]- 2023 Nov, [facility] [place] [facility] [address] [id number] [place] [address]- 4939 Nov, [facility] [place] [facility] [address] [id number] [place] [address] 2543 Nov, [facility] [place] [facility] [address] [id number] [place] [address]- 8786 Nov, [facility] [place] [facility] [address] [id number] [place] [address]- 2545 Nov, [facility] [place] [facility] [address] [id number] [place] [address]- 0855 Nov, [facility] [address] [id number] [place] [address]- 5852 Nov, [facility] [place] [facility] [address] [id number] [place] [address]- 1167 Nov, [facility] [place] [facility] [address] [id number] [place] [address]- 8515 Nov, [facility] [place] [facility] [address] [id number] [place] [address]- 4132 Nov, [facility] [place] [facility] [address] [id number] [place] [address]- 2095 Oct, [facility] [place] [facility] [address] [id number] [place] [address]- 9530 Oct, [facility] [place] [facility] [address] [id number] [place] [address]- 1315 Oct, [facility] [place] [facility] [address] [id number] [place] [address]- 4919 Sep, [facility] [place] [facility] [address] [id number] [place] [address]- 6209 Sep, [facility] [place] [facility] [address] [id number] [place] [address]- 1273 Sep, [facility] [place] [facility] [address] [id number] [place] [address]- 0176 August, [facility] [place] [facility] [address] [id number] [place] [address]- 7478 August, [facility] [place] [facility] [address] [id number] [place] [address]- 9138 August, [facility] [place] [facility] [address] [id number] [place] [address]- 2362 August, [facility] [place] [facility] [address] [id number] [place] [address]- 0923 August, [facility] [place] [facility] [address] [id number] [place] [address]- 9574 August, [facility] [address] [id number] [place] [address]- 3286 30 Jul, 2012 [facility] [place] [facility] [address] [id number] [place] [address]- 7482 15 Jul, 2012 [facility] [address] [id number] [place] [address]- 8357 Jul, [facility] [place] [facility] [address] [id number] [place] [address]- 1346 Jul, [facility] [address] [id number] [place] [address]- 7189 Jul, [facility] [place] [facility] [address] [id number] [place] [address]- 1122 Jul, [facility] [address] [id number] [place] [address]- 8261 2012 [facility] [address] [id number] [place] [address]- 7915 20 Jun, 2012 [facility] [address] [id number] [place] [address]- 8216 18 Jun, 2012 [facility] [address] [id number] [place] [address] 14 Jun, 2012 [facility] [place] [facility] [address] [id number] [place] [address] 04 Jun, 2012 [facility] [place] [facility] [address] [id number] [place] [address] May, [facility] [place] [facility] [address] [id number] [place] [address] 2626 12 May, 2012 [facility] [place] [facility] [address] [id number] [place] [address] May, [facility] [place] [facility] [address] [id number] [place] [address] 08 May, 2012 [facility] [address] [id number] [place] [address] Apr, [facility] [place] [facility] [address] [id number] [place] [address] Apr, [facility] [place] [facility] [address] [id number] [place] [address] Apr, [facility] [place] [facility] [address] [id number] [place] [address] Mar, [facility] [place] [facility] [address] [id number] [place] [address] 136[address] Mar, [facility] [place] [facility] [address] [id number] [place] [address] 8091 Mar, [facility] [place] [facility] [address] [id number] [place] [address] 7060 Mar, [facility] [place] [facility] [address] [id number] [place] [address] Mar, [facility] [place] [facility] [address] [id number] [place] [address] 6846 Mar, [facility] [place] [facility] [address] [id number] [place] [address] 44[address] Mar, [facility] [place] [facility] [address] [id number] [place] [address] Mar, [facility] [place] [facility] [address] [id number], [place] [address] Feb, [facility] [place] [facility] [address] [id number] [place] [address] 99[address] Feb, [facility] [place] [facility] [address] [id number] [place] [address]- [address] Feb, [facility] [place] [facility] [address] [id number] [place] [address]- 9786 Feb, [facility] [place] [facility] [address] [id number], [place] [address] Feb, [facility] [place] [facility] [address] [id number] [place] [address]- 111[address] Feb, [facility] [place] [facility] [address] [id number] [place] [address] 9[address] Feb, [facility] [place] [facility] [address] [facility] [id number] [place] [address]- 72[address] Feb, [facility] [place] [facility] [address] [id number] [place] [address]- 6[address] Feb, [facility] [place] [facility] [address] [id number] [place] [address]- 407[address] Feb, [facility] [place] [facility] [address] [facility] [id number] [place] [address]- 8230 Feb, [facility] [place] [facility] [address] [id number] [address] Feb, [facility] [place] [facility] [address] [facility] [id number] [place] [address] 5852 Feb, [facility] [place] [facility] [address] [facility] [id number] [place] [address]- 8780 Feb, [facility] [place] [facility] [address] [facility] [id number] [place] [address]- 6589 Feb, [facility] [place] [facility] [address] [facility] [id number], [place] [address] Feb, [facility] [place] [facility] [address] [facility] [id number], [place] [address] Feb, [facility] [place] [facility] [address] [facility] [id number], [place] [address] 26[address] Feb, [facility] [place] [facility] [address] [facility] [id number] [place] [address] 43[address] Jan, [facility] [place] [facility] [address] [facility] [id number], [place] [address] Jan, [facility] [place] [facility] [address] [id number] [place] [address] 22 Jan, 2011 [facility] [place] [facility] [address] [id number] [place] [address]- 1663 20 Jan, 2012 [facility] [place] [facility] [address] [id number] [place] [address] 8703 20 Jan, 2012 [facility] [place] [facility] [address] [id number] [place] [address]- 5947 19 Jan, 2012 [facility] [place] [facility] [address] [id number] [place] [address]- 0798 18 Jan, 2012 [facility] [place] [facility] [address] [id number] [place] [address]- 5688 18 Jan, 2012 [facility] [place] [facility] [address] [id number] [place] [address]- 6932 15 Jan, 2012 [facility] [place] [facility] [address] [id number] [place] [address]- 1899 15 Jan, 2012 [facility] [place] [facility] [address] [id number] [place] [address]- 2401 11 Jan, 2012 [facility] [place] [facility] [address] [id number] [place] [address]- 1924 11 Jan, 2012 [facility] [place] [facility] [address] [facility] [id number] [place] [address]- 6260 10 Jan, 2012 [facility] [place] [facility] [address] [id number] [place] [address]- 5278 09 Jan, 2012 [facility] [place] [facility] [address] [id number] [place] [address]- 4793 02 Jan, 2012 [facility] [place] [facility] [address] [id number] [place] [address]- 8976 29 Dec, 2011 [facility] [place] [facility] [address] [id number] [place] [address]- 1816 28 Dec, 2011 [facility] [place] [facility] [address] [id number] [place] [address]- 3623 Dec, [facility] [place] [facility] [address] [id number] [place] [address]- 3464 Dec, [facility] [place] [facility] [address] [id number] [place] [address]- 4095 Nov, [facility] [place] [facility] [address] [id number] [place] [address]- 9930 Nov, [facility] [place] [facility] [address] [id number] [place] [address] 2235 Nov, [facility] [place] [facility] [address] [id number] [place] [address]- 3401 Nov, [facility] [place] [facility] [address] [id number] [place] [address]- 9605 Nov, [facility] [place] [facility] [address] [id number] [place] [address]- 5744 Nov, [facility] [place] [facility] [address] [id number] [place] [address]- 3210 Nov, [facility] [place] [facility] [address] [id number] [place] [address]- 7536 Nov, [facility] [place] [facility] [address] [id number] [place] [address]- 1543 Nov, [facility] [place] [facility] [address] [id number] [place] [address]- 6739 Nov, [facility] [place] [facility] [address] [id number] [place] [address]- 5315 Nov, [facility] [place] [facility] [address] [id number] [place] [address]- 9793 Oct, [facility] [place] [facility] [address] [id number] [place] [address]- 6259 Oct, [facility] [place] [facility] [address] [id number] [place] [address]- 5220 Oct, [facility] [place] [facility] [address] [id number] [place] [address]- 9626 Oct, [facility] [place] [facility] [address] [id number] [place] [address]- 2324 Oct, [facility] [place] [facility] [address] [id number] [place] [address]- 3006 Oct, [facility] [place] [facility] [address] [id number] [place] [address]- 8766 Oct, [facility] [place] [facility] [address] [id number] [place] [address]- 1023 Oct, [facility] [place] [facility] [address] [id number] [place] [address]- 6220 Sep, [facility] [place] [facility] [address] [id number] [place] [address]- 5528 Sep, [facility] [place] [facility] [address] [id number] [place] [address]- 8162 Sep, [facility] [place] [facility] [address] [id number] [place] [address]- 5436 Sep, [facility] [place] [facility] [address] [id number] [place] [address]- 8039 Sep, [facility] [place] [facility] [address] [id number] [place] [address]- 8402 Sep, [facility] [place] [facility] [address] [id number] [place] [address]- 6264 Sep, [facility] [place] [facility] [address] [id number] [place] [address]- 0348 August, [facility] [place] [facility] [address] [id number] [place] [address]- 8208 August, [facility] [place] [facility] [address] [id number] [place] [address] August, [facility] [place] [facility] [address] [id number] [place] [address] August, [facility] [place] [facility] [address] [id number] [place] [address] August, [facility] [address] [id number] [place] [address] August, [facility] [place] [facility] [address] [id number] [place] [address] August, [facility] [address] [id number] [place] [address] August, [facility] [address] [id number] [place] [address] Jul, [facility] [place] [facility] [address] [id number] [place] [address] 17 Jul, 2011 [facility] [address] [id number] [place] [address] Jul, [facility] [address] [id number] [place] [address] Jul, [facility] [address] [id number] [place] [address] Jul, [facility] [address] [id number] [place] [address] 28 Jun, 2011 [facility] [place] [facility] [address] [id number] [place] [address] 2011 [facility] [place] [facility] [address] [id number] [place] [address] 20 Jun, 2011 [facility] [place] [facility] [address] [id number] [place] [address] 19 Jun, 2011 [facility] [place] [facility] [address] [id number] [place] [address] 12 Jun, 2011 [facility] [place] [facility] [address] [id number] [place] [address] Jun, [facility] [place] [facility] [address] [id number] [place] [address] Jun, [facility] [address] [id number] [place] [address] Jun, [facility] [address] [id number] [place] [address] Jun, [facility] [address] [id number] [place] [address] May, [facility] [address] [id number] [place] [address] May, [facility] [address] [id number] [place] [address] May, [facility] [address] [id number] [place] [address] May, [facility] [address] [id number] [place] [address] May, [facility] [address] [id number] [place] [address] May, [facility] [address] [id number] [place] [address] May, [facility] [address] [facility] [id number] [place] [address] May, [facility] [address] [facility] [id number] [place] [address] Apr, [facility] [place] [facility] [address] [id number] [place] [address] Apr, [facility] [place] [facility] [address] [id number] [place] [address] Apr, [facility] [place] [facility] [address] [id number] [place] [address] Apr, [facility] [address] [facility] [id number], [place] [address] Apr, [facility] [address] [id number] [place] [address] 05 Apr, 2011 [facility] [address] [id number] [place] [address] Mar, [facility] [place] [facility] [address] [id number] [place] [address] Mar, [facility] [place] [facility] [address] [id number] [place] [address] Mar, [facility] [address] [id number] [place] [address] Mar, [facility] [place] [facility] [address] [id number] [place] [address] 15 Mar, 2011 [facility] [address] [id number] [place] [address] Mar, [facility] [place] [facility] [address] [id number] [place] [address] 115[address] Mar, [facility] [place] [facility] [address] [id number] [place] [address] Mar, [facility] [place] [facility] [address] [id number] [place] [address] Mar, [facility] [place] [facility] [address] [id number] [place] [address] Mar, [facility] [place] [facility] [address] [id number] [place] [address]- [address] Mar, [facility] [place] [facility] [address] [id number] [place] [address]- 24[address] Mar, [facility] [place] [facility] [address] [id number] [place] [address] 1540 Mar, [facility] [place] [facility] [address] [id number] [place] [address] Feb, [facility] [place] [facility] [address] [id number] [place] [address]- [address] Feb, [facility] [place] [facility] [address] [id number] [place] [address] 17 Feb, 2011 [facility] [place] [facility] [address] [id number] [place] [address] Feb, [facility] [place] [facility] [address] [id number] [place] [address] Feb, [facility] [place] [facility] [address] [id number] [place] [address]- [address]39 Feb, [facility] [place] [facility] [address] [id number] [place] [address] Feb, [facility] [place] [facility] [address] [id number] [place] [address] Jan, [facility] [place] [facility] [address] [id number] [place] [address] Jan, [facility] [place] [facility] [address] [id number] [place] [address] Jan, [facility] [place] [facility] [address] [id number] [place] [address]- [address] Nov, [facility] [place] [facility] [address] [id number] [place] [address] Mar, [facility] [place] [facility] [address] [id number], [place] [address] Mar, [facility] [place] [facility] [address] [id number], [place] [address] 20 Mar, 2010 [facility] [place] [facility] [address] [id number] [place] [address]- [address]146 13 Mar, 2010 [facility] [place] [facility] [address] [id number] [place] [address] 07 Mar, 2010 [facility] [place] [facility] [address] [id number] [place] [address] 8[address] 30 Feb, 2010 [facility] [place] [facility] [address] [facility] [id number] [place] [address] 30 Feb, 2010 [facility] [address] [facility] [id number] [place] [address]- 8436 24 Feb, 2010 [facility] [address] [facility] [id number] [place] [address]- [address] 19 Feb, 2010 [facility] [address] [facility] [id number], [place] [address] 19 Feb, 2010 [facility] [address] [facility] [id number] [place] [address]- [address] 15 Feb, 2010 IMMUNIZATIONS No Known Immunizations SOCIAL HISTORY Never Assessed REASON FOR VISIT Requests return call PLAN OF CARE VITAL SIGNS MEDICATIONS Unknown [...] Mastectomy 02/01/2017 Hospitalization History surgeries Hospitalization History [facility] ED 10/06/2017
--- OUTSIDE RECORDS SUMMARY | 2017-12-22 03:30 | XMS REPORT ---
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 [facility] [place] [facility] [address] [id number] [place] [address]- 8966 Jun, [facility] [place] [facility] [address] [id number] [place] [address]- 8345 Jun, [facility] [place] [facility] [address] [id number] [place] [address]- 3383 Jun, [facility] [place] [facility] [address] [id number] [place] [address]- 4463 Jun, [facility] [place] [facility] [address] [id number] [place] [address]- 2720 Jun, [facility] [place] [facility] [address] [id number] [place] [address]- 7436 Jun, [facility] [place] [facility] [address] [id number] [place] [address]- 4961 Jun, [facility] [place] [facility] [address] [id number] [place] [address]- 3479 Jun, [facility] [place] [facility] [address] [id number] [place] [address]- 9978 Jun, [facility] [place] [facility] [address] [id number] [place] [address]- 4723 Jun, [facility] [place] [facility] [address] [id number] [place] [address]- 4880 Jun, [facility] [place] [facility] [address] [id number] [place] [address]- 9413 Jun, [facility] [place] [facility] [address] [id number] [place] [address]- 4179 18 Jun, 2014 [facility] [place] [facility] [address] [id number] [place] [address]- 3434 18 Jun, 2014 [facility] [place] [facility] [address] [id number] [place] [address]- 7814 18 Jun, 2014 [facility] [place] [facility] [address] [id number] [place] [address]- 1102 18 Jun, 2014 [facility] [place] [facility] [address] [id number] [place] [address]- 8047 17 Jun, 2014 [facility] [place] [facility] [address] [id number] [place] [address]- 8136 17 Jun, 2014 [facility] [place] [facility] [address] [id number] [place] [address]- 1129 17 Jun, 2014 [facility] [place] [facility] [address] [id number] [place] [address]- 9105 17 Jun, 2014 [facility] [place] [facility] [address] [id number] [place] [address]- 2282 13 Jun, 2014 [facility] [place] [facility] [address] [id number] [place] [address]- 6089 13 Jun, 2014 [facility] [place] [facility] [address] [id number] [place] [address]- 4539 12 Jun, 2014 [facility] [place] [facility] [address] [id number] [place] [address]- 7678 12 Jun, 2014 [facility] [place] [facility] [address] [id number] [place] [address]- 4462 10 Jun, 2014 [facility] [place] [facility] [address] [id number] [place] [address]- 8818 10 Jun, 2014 [facility] [place] [facility] [address] [id number] [place] [address]- 9688 10 Jun, 2014 [facility] [place] [facility] [address] [id number] [place] [address]- 0722 10 Jun, 2014 [facility] [place] [facility] [address] [id number], [place] [address]- 7532 Jun, [facility] [place] [facility] [address] [facility] [id number] [place] [address]- 0536 Jun, [facility] [place] [facility] [address] [facility] [id number] [place] 6856 Jun, 2014 [facility] [place] [facility] [address] [facility] [id number] [place] [address]- 9867 Jun, [facility] [place] [facility] [address] [facility] [id number] [place] [address]- 3203 Jun, [facility] [place] [facility] [address] [facility] [id number] [place] [address]- 2150 Jun, [facility] [place] [facility] [address] [facility] [id number] [place] [address]- 2195 May, 2014 [facility] [place] [facility] [address] [facility] [id number] [place] [address]- 9125 May, 2014 [facility] [place] [facility] [address] [facility] [id number] [place] [address]- 6263 May, 2014 [facility] [place] [facility] [address] [facility] [id number] [place] [address]- 8811 May, 2014 [facility] [place] [facility] [address] [facility] [id number] [place] [address]- 6097 May, 2014 [facility] [place] [facility] [address] [facility] [id number] [place] [address]- 2705 May, 2014 [facility] [place] [facility] [address] [facility] [id number], [place] [address]- 5182 May, 2014 [facility] [place] [facility] [address] [facility] [id number] [place] [address]- 7676 May, 2014 [facility] [place] [facility] [address] [facility] [id number], [place] [address]- 7330 May, 2014 [facility] [place] [facility] [address] [facility] [id number], [place] [address]- 2523 May, 2014 [facility] [place] [facility] [address] [id number] [place] [address]- 3440 May, [facility] [place] [facility] [address] [id number] [place] [address]- 8156 May, 2014 [facility] [place] [facility] [address] [id number] [place] [address]- 4277 May, 2014 [facility] [place] [facility] [address] [id number] [place] [address]- 8270 May, 2014 [facility] [place] [facility] [address] [id number] [place] [address]- 4032 May, [facility] [place] [facility] [address] [id number] [place] [address]- 2775 May, [facility] [place] [facility] [address] [facility] [id number] [place] [address]- 5819 Apr, [facility] [place] [facility] [address] [id number] [place] [address]- 9239 Apr, [facility] [place] [facility] [address] [id number] [place] [address]- 2476 Apr, [facility] [place] [facility] [address] [facility] [id number] [place] [address]- 5930 Apr, [facility] [place] [facility] [address] [facility] [id number], [place] [address]- 7188 Apr, [facility] [place] [facility] [address] [id number], [place] [address]- 9858 Apr, [facility] [place] [facility] [address] [id number] [place] [address]- 1887 Apr, [facility] [place] [facility] [address] [facility] [id number] [place] [address]- 9140 Apr, [facility] [place] [facility] [address] [facility] [id number] [place] [address]- 7226 Apr, [facility] [place] [facility] [address] [id number] [place] [address]- 8818 Apr, [facility] [address] [id number] [place] [address]- 6786 Apr, [facility] [place] [facility] [address] [id number] [place] [address]- 6739 Apr, [facility] [place] [facility] [address] [id number] [place] [address]- 1059 Apr, [facility] [place] [facility] [address] [id number] [place] [address]- 0956 Apr, [facility] [place] [facility] [address] [id number] [place] [address]- 6999 Apr, [facility] [place] [facility] [address] [id number] [place] [address]- 9972 Mar, [facility] [address] [id number] [place] [address]- 0196 Mar, [facility] [address] [id number] [place] [address]- 9042 Mar, [facility] [place] [facility] [address] [id number] [place] [address]- 9372 Mar, [facility] [place] [facility] [address] [id number] [place] [address]- 6748 Mar, [facility] [place] [facility] [address] [id number] [place] [address]- 5883 Mar, [facility] [place] [facility] [address] [id number] [place] [address]- 8448 15 Mar, 2014 [facility] [place] [facility] [address] [id number] [place] [address]- 3376 Mar, [facility] [place] [facility] [address] [id number] [place] [address]- 7090 Mar, [facility] [place] [facility] [address] [id number] [place] [address]- 3761 Mar, [facility] [place] [facility] [address] [id number] [place] [address]- 8199 Mar, [facility] [place] [facility] [address] [id number] [place] [address]- 4088 Mar, [facility] [place] [facility] [address] [id number] [place] 5261 Mar, [facility] [place] [facility] [address] [id number] [place] [address] Mar, [facility] [place] [facility] [address] [id number] [place] [address] Mar, [facility] [place] [facility] [address] [id number] [place] [address] Mar, [facility] [place] [facility] [address] [id number] [place] [address] Mar, [facility] [place] [facility] [address] [id number] [place] [address] Mar, [facility] [place] [facility] [address] [id number] [place] [address] Feb, [facility] [place] [facility] [address] [id number] [place] [address] Feb, [facility] [place] [facility] [address] [id number] [place] [address] Feb, [facility] [place] [facility] [address] [id number] [place] [address] Feb, [facility] [place] [facility] [address] [id number] [place] [address]- [address] Feb, [facility] [place] [facility] [address] [id number] [place] [address] Feb, [facility] [place] [facility] [address] [id number] [place] [address] 1864 Feb, [facility] [place] [facility] [address] [id number], [place] [address] Feb, [facility] [place] [facility] [address] [id number] [place] [address]- [address] Jan, [facility] [place] [facility] [address] [id number] [place] [address]- [address] Jan, [facility] [place] [facility] [address] [id number] [place] [address]- [address] Jan, [facility] [place] [facility] [address] [id number] [place] [address]- [address] Jan, [facility] [place] [facility] [address] [id number] [place] [address]- [address] Jan, [facility] [place] [facility] [address] [id number] [place] [address]- [address] Jan, [facility] [place] [facility] [address] [id number] [place] [address]- [address] Jan, [facility] [place] [facility] [address] [id number] [place] [address]- [address] Jan, [facility] [place] [facility] [address] [id number] [place] [address]- [address] Jan, [facility] [place] [facility] [address] [id number] [place] [address]- [address] Jan, [facility] [place] [facility] [address] [id number], [place] [address]- [address] Jan, [facility] [place] [facility] [address] [id number], [place] [address] Jan, [facility] [place] [facility] [address] [id number] [place] [address]- [address] Jan, [facility] [place] [facility] [address] [id number], [place] [address]- [address] Jan, [facility] [place] [facility] [address] [id number] [place] [address]- [address] 16 Jan, 2014 [facility] [place] [facility] [address] [id number] [place] [address]- [address] 16 Jan, 2013 [facility] [place] [facility] [address] [id number] [place] [address]- [address] 13 Jan, 2014 [facility] [place] [facility] [address] [id number] [place] [address]- [address] 13 Jan, 2013 [facility] [place] [facility] [address] [id number] [place] [address] 29 Sep, 2013 [facility] [place] [facility] [address] [id number] [place] [address]- [address] 29 Sep, 2013 [facility] [place] [facility] [address] [id number] [place] [address]- [address] 26 Sep, 2013 [facility] [place] [facility] [address] [id number] [place] [address]- [address] 26 Sep, 2013 [facility] [place] [facility] [address] [id number] [place] [address]- [address]41 26 Sep, 2013 [facility] [place] [facility] [address] [id number] [place] [address]- [address]40 26 Sep, 2013 [facility] [place] [facility] [address] [id number] [place] [address]- [address] 23 Sep, 2013 [facility] [place] [facility] [address] [id number] [place] [address]- [address]48 23 Sep, 2013 [facility] [place] [facility] [address] [id number] [place] [address] 2542 22 Sep, 2013 [facility] [place] [facility] [address] [id number] [place] [address] 254 22 Sep, 2013 [facility] [place] [facility] [address] [id number] [place] [address] 2546 16 Sep, 2013 [facility] [place] [facility] [address] [id number] [place] [address]- [address]46 16 Sep, 2013 [facility] [place] [facility] [address] [id number] [place] [id number] 15 Dec, 2013 [facility] [place] [facility] [address] [id number] [place] [address]- [address] 15 Dec, 2013 [facility] [place] [facility] [address] [id number] [place] [address]- [address] Dec, [facility] [place] [facility] [address] [id number] [place] [address]- [address] Dec, [facility] [place] [facility] [address] [id number] [place] [address]- [address] Dec, [facility] [place] [facility] [address] [id number] [place] [address]- [address] Nov, [facility] [place] [facility] [address] [id number] [place] [address]- [address]367 Nov, [facility] [place] [facility] [address] [id number] [place] [address]- [address] Nov, [facility] [place] [facility] [address] [id number] [place] [address]- [address]99 Nov, [facility] [place] [facility] [address] [id number] [place] [address]- 1687 Nov, [facility] [place] [facility] [address] [id number] [place] [address]- [address] Nov, [facility] [place] [facility] [address] [id number] [place] [address]38 Nov, [facility] [place] [facility] [address] [id number] [place] [address] 3[address] Nov, [facility] [place] [facility] [address] [id number] [place] [address]- 0861 Nov, [facility] [place] [facility] [address] [id number] [place] [address]- 7845 Nov, [facility] [place] [facility] [address] [id number] [place] [address]- 5435 Nov, [facility] [place] [facility] [address] [id number] [place] [address]- 0421 Nov, [facility] [place] [facility] [address] [id number] [place] [address]- 3497 Nov, [facility] [place] [facility] [address] [id number] [place] [address]- 5887 Nov, [facility] [place] [facility] [address] [id number] [place] [address]- 6116 Nov, [facility] [place] [facility] [address] [id number] [place] [address]- 4235 Nov, [facility] [place] [facility] [address] [id number] [place] [address]- 0353 Nov, [facility] [place] [facility] [address] [id number] [place] [address]- 2317 Nov, [facility] [place] [facility] [address] [id number] [place] [address]- 9410 Nov, [facility] [place] [facility] [address] [id number] [place] [address]- 4108 Nov, [facility] [place] [facility] [address] [id number] [place] [address]- 6198 Nov, [facility] [place] [facility] [address] [id number] [place] [address]- 4184 Oct, [facility] [place] [facility] [address] [id number] [place] [address]- 2151 Oct, [facility] [place] [facility] [address] [id number] [place] [address]- 0570 Oct, [facility] [place] [facility] [address] [id number] [place] [address]- 9042 Oct, [facility] [place] [facility] [address] [id number] [place] [address]- 6129 Oct, [facility] [place] [facility] [address] [id number] [place] [address]- 9474 Oct, [facility] [place] [facility] [address] [id number] [place] [address]- 9707 Oct, [facility] [place] [facility] [address] [id number] [place] [address]- 9036 Oct, [facility] [place] [facility] [address] [id number] [place] [address]- 7626 Oct, [facility] [place] [facility] [address] [id number] [place] [address]- 7368 Oct, [facility] [place] [facility] [address] [id number] [place] [address]- 6042 Oct, [facility] [place] [facility] [address] [id number] [place] [address]- 7738 Oct, [facility] [place] [facility] [address] [id number] [place] [address]- 9518 Oct, [facility] [place] [facility] [address] [id number] [place] [address]- 2282 Oct, [facility] [place] [facility] [address] [id number] [place] [address]- 5022 Oct, [facility] [place] [facility] [address] [id number] [place] [address]- 7562 Sep, [facility] [place] [facility] [address] [id number] [place] [address]- 5960 Sep, [facility] [place] [facility] [address] [id number] [place] [address]- 2855 Sep, [facility] [place] [facility] [address] [id number] [place] [address]- 7876 Sep, [facility] [place] [facility] [address] [id number] [place] [address]- 4748 Sep, [facility] [place] [facility] [address] [id number] [place] [address]- 2623 Sep, [facility] [place] [facility] [address] [id number] [place] [address]- 3421 18 Sep, 2013 [facility] [place] [facility] [address] [id number] [place] [address]- 1526 18 Sep, 2013 [facility] [place] [facility] [address] [id number] [place] [address]- 4409 17 Sep, 2013 [facility] [place] [facility] [address] [id number] [place] [address]- 0669 Sep, [facility] [place] [facility] [address] [id number] [place] [address]- 4498 Sep, [facility] [place] [facility] [address] [id number] [place] [address]- 0537 Sep, [facility] [place] [facility] [address] [id number] [place] [address]- 3314 Sep, [facility] [place] [facility] [address] [id number] [place] [address]- 0605 Sep, [facility] [place] [facility] [address] [id number], [place] [address]- 7152 Sep, [facility] [place] [facility] [address] [id number] [place] [address]- 6363 Sep, [facility] [place] [facility] [address] [id number] [place] [address]- 8445 Sep, [facility] [place] [facility] [address] [id number], [place] [address]- 7790 Sep, [facility] [place] [facility] [address] [id number], [place] [address]- 6293 Sep, [facility] [place] [facility] [address] [id number], [place] [address]- 6444 Sep, [facility] [place] [facility] [address] [id number], [place] [address]- 7968 Sep, [facility] [place] [facility] [address] [id number], [place] [address]- 9114 Sep, [facility] [place] [facility] [address] [id number] [place] [address]- 9774 August, [facility] [address] [id number] [place] [address]- 1729 August, [facility] [address] [id number] [place] [address] August, [facility] [address] [id number] [place] [address]- 3175 August, [facility] [address] [id number] [place] [address]- 7262 August, [facility] [address] [id number] [place] [address] August, [facility] [address] [id number] [place] [address]- 9097 August, [facility] [address] [id number] [place] [address]- 9061 August, [facility] [address] [id number] [place] [address]- 4013 August, [facility] [address] [id number] [place] [address]- 6942 August, [facility] [address] [id number] [place] [address]- 9987 August, [facility] [place] [facility] [address] [id number] [place] [address]- 9114 August, [facility] [place] [facility] [address] [id number] [place] [address]- 1072 August, [facility] [place] [facility] [address] [id number] [place] [address]- 6731 August, [facility] [place] [facility] [address] [id number] [place] [address]- 9999 August, [facility] [place] [facility] [address] [id number] [place] [address]- 0099 August, [facility] [address] [id number] [place] [address]- 6856 August, [facility] [place] [facility] [address] [id number] [place] [address]- 9561 August, [facility] [place] [facility] [address] [id number] [place] [address]- 1112 Jul, [facility] [place] [facility] [address] [id number] [place] [address]- 8370 Jul, [facility] [address] [id number] [place] [address]- 1983 Jul, [facility] [place] [facility] [address] [id number] [place] [address]- 7429 Jul, [facility] [address] [id number] [place] [address]- 6876 Jul, [facility] [address] [id number] [place] [address]- 6565 Jul, [facility] [place] [facility] [address] [id number] [place] [address]- 4225 Jul, [facility] [place] [facility] [address] [id number] [place] [address]- 5182 Jul, [facility] [place] [facility] [address] [id number] [place] [address]- 0426 Jul, [facility] [place] [facility] [address] [id number] [place] [address]- 3550 Jul, [facility] [place] [facility] [address] [id number] [place] [address]- 0903 Jul, [facility] [place] [facility] [address] [id number] [place] [address]- 9903 Jul, [facility] [place] [facility] [address] [id number] [place] [address]- 8322 Jul, [facility] [place] [facility] [address] [id number] [place] [address]- 0330 17 Jul, 2013 [facility] [place] [facility] [address] [id number] [place] [address]- 0789 17 Jul, 2013 [facility] [place] [facility] [address] [id number] [place] [address]- 7859 17 Jul, 2013 [facility] [place] [facility] [address] [id number] [place] [address]- 3654 17 Jul, 2013 [facility] [place] [facility] [address] [id number] [place] [address]- 6199 16 Jul, 2013 [facility] [place] [facility] [address] [id number] [place] [address]- 1072 16 Jul, 2013 [facility] [place] [facility] [address] [id number] [place] [address]- 8172 15 Jul, 2013 [facility] [place] [facility] [address] [id number] [place] [address]- 3903 15 Jul, 2013 [facility] [place] [facility] [address] [id number] [place] [address]- 2952 14 Jul, 2013 [facility] [place] [facility] [address] [id number] [place] [address]- 0423 14 Jul, 2013 [facility] [place] [facility] [address] [id number] [place] [address]- 5758 12 Jul, 2013 [facility] [place] [facility] [address] [id number] [place] [address]- 1890 Jul, [facility] [place] [facility] [address] [id number] [place] [address]- 6009 Jul, [facility] [place] [facility] [address] [id number] [place] [address]- 7758 Jul, [facility] [place] [facility] [address] [id number] [place] [address]- 0335 Jul, [facility] [place] [facility] [address] [id number] [place] [address]- 2139 Jul, [facility] [place] [facility] [address] [id number] [place] [address]- 9836 17 Jun, 2013 [facility] [place] [facility] [address] [id number] [place] [address]- 0306 17 Jun, 2013 [facility] [place] [facility] [address] [id number] [place] [address]- 0096 17 Jun, 2013 [facility] [place] [facility] [address] [id number] [place] [address]- 9456 17 Jun, 2013 [facility] [place] [facility] [address] [id number] [place] [address]- 6489 13 Jun, 2013 [facility] [place] [facility] [address] [id number] [place] [address]- 9518 13 Jun, 2013 [facility] [place] [facility] [address] [id number] [place] [address]- 5215 11 Jun, 2013 [facility] [place] [facility] [address] [id number] [place] [address]- 7944 11 Jun, 2013 [facility] [place] [facility] [address] [id number] [place] [address]- 0594 10 Jun, 2013 [facility] [place] [facility] [address] [id number] [place] [address]- 8402 10 Jun, 2013 [facility] [place] [facility] [address] [id number] [place] [address]- 1747 Jun, [facility] [place] [facility] [address] [id number] [place] [address]- 7179 Jun, [facility] [place] [facility] [address] [id number] [place] [address]- 9796 May, [facility] [place] [facility] [address] [id number] [place] [address]- 8286 May, [facility] [place] [facility] [address] [id number] [place] [address]- 2546 07 May, 2013 [facility] [place] [facility] [address] [id number] [place] [address]- 5464 May, [facility] [place] [facility] [address] [id number] [place] [address]- 5136 May, [facility] [place] [facility] [address] [id number] [place] [address]606 May, [facility] [place] [facility] [address] [facility] [id number] [place] [address]- 7286 May, [facility] [place] [facility] [address] [id number] [place] [address]- 6481 May, [facility] [place] [facility] [address] [id number] [place] [address]- 0954 May, [facility] [place] [facility] [address] [facility] [id number] [place] [address]- 7956 May, [facility] [place] [facility] [address] [facility] [id number] [place] [address]- 2280 Apr, [facility] [place] [facility] [address] [facility] [id number] [place] [address]- 3083 Apr, [facility] [place] [facility] [address] [facility] [id number] [place] [address]- 8199 Apr, [facility] [place] [facility] [address] [facility] [id number] [place] [address]- 4687 Apr, [facility] [place] [facility] [address] [facility] [id number] [place] [address]- 8194 Apr, [facility] [place] [facility] [address] [id number] [place] [address]- 5648 Apr, [facility] [place] [facility] [address] [facility] [id number] [place] [address]- 7044 Apr, [facility] [place] [facility] [address] [facility] [id number] [place] [address]- 6954 Apr, [facility] [place] [facility] [address] [facility] [id number] [place] [address]- 3150 Apr, [facility] [place] [facility] [address] [id number] [place] [address]- 4403 Apr, [facility] [place] [facility] [address] [id number] [place] Mar, [facility] [place] [facility] [address] [id number] [place] 5946 Mar, [facility] [place] [facility] [address] [id number] [place] [address]- 0521 Mar, [facility] [place] [facility] [address] [id number] [place] [address]- 9748 Mar, [facility] [place] [facility] [address] [id number] [place] [address]- 3991 Mar, [facility] [place] [facility] [address] [id number] [place] [address]- 2619 Mar, [facility] [place] [facility] [address] [id number] [place] [address]- 6086 Feb, [facility] [place] [facility] [address] [id number] [place] [address]- 1126 Feb, [facility] [place] [facility] [address] [id number] [place] [address]- 4589 Feb, [facility] [place] [facility] [address] [id number] [place] [address]- 9828 Jan, [facility] [place] [facility] [address] [id number] [place] [address]- 3642 30 Jan, 2013 [facility] [place] [facility] [address] [id number] [place] [address]- 2756 Jan, [facility] [place] [facility] [address] [id number] [place] [address]- 0743 28 Jan, 2013 [facility] [place] [facility] [address] [id number] [place] [address]- 6206 15 Jan, 2013 [facility] [place] [facility] [address] [id number] [place] [address]- 9029 15 Jan, 2013 [facility] [place] [facility] [address] [id number] [place] [address]- 9824 Jan, [facility] [place] [facility] [address] [id number] [place] [address]- 4329 Jan, [facility] [place] [facility] [address] [id number] [place] [address]- 8314 Jan, [facility] [place] [facility] [address] [id number] [place] [address]- 9039 Jan, [facility] [place] [facility] [address] [id number] [place] [address]- 9706 30 Dec, 2012 [facility] [place] [facility] [address] [id number] [place] [address]- 2318 Dec, [facility] [place] [facility] [address] [id number] [place] [address]- 7716 Dec, [facility] [place] [facility] [address] [id number] [place] [address]- 6975 Dec, [facility] [place] [facility] [address] [id number] [place] [address]- 1289 05 Dec, 2012 [facility] [place] [facility] [address] [id number] [place] [address]- 8952 Dec, [facility] [place] [facility] [address] [id number], [place] [address]- 7371 Nov, [facility] [place] [facility] [address] [id number], [place] [address]- 7023 Nov, [facility] [place] [facility] [address] [id number] [place] [address]- 1418 Nov, [facility] [place] [facility] [address] [id number] [place] [address]- 6173 Nov, [facility] [place] [facility] [address] [id number] [place] [address]- 5049 Nov, [facility] [place] [facility] [address] [id number] [place] [address]- 8415 Nov, [facility] [address] [id number] [place] [address]- 4639 Nov, [facility] [place] [facility] [address] [id number] [place] [address]- 9716 Nov, [facility] [place] [facility] [address] [id number] [place] [address]- 3398 Nov, [facility] [place] [facility] [address] [id number] [place] [address]- 6792 Nov, [facility] [place] [facility] [address] [id number] [place] [address]- 3322 Nov, [facility] [place] [facility] [address] [id number] [place] [address]- 4192 Nov, [facility] [address] [id number] [place] [address]- 4221 Oct, [facility] [place] [facility] [address] [id number] [place] [address]- 1905 Oct, [facility] [place] [facility] [address] [id number] [place] [address]- 3772 Oct, [facility] [place] [facility] [address] [id number] [place] [address]- 1008 Sep, [facility] [place] [facility] [address] [id number] [place] [address]- 2288 Sep, [facility] [place] [facility] [address] [id number] [place] [address]- 7311 Sep, [facility] [place] [facility] [address] [id number] [place] [address]- 7771 August, [facility] [place] [facility] [address] [id number] [place] [address]- 1575 August, [facility] [place] [facility] [address] [id number] [place] [address]- 4812 August, [facility] [place] [facility] [address] [id number] [place] [address]- 9784 August, [facility] [address] [id number] [place] [address]- 5972 August, [facility] [address] [id number] [place] [address]- 3970 August, [facility] [address] [id number] [place] [address]- 9198 Jul, [facility] [address] [id number] [place] [address]- 5897 Jul, [facility] [address] [id number] [place] [address]- 8046 Jul, [facility] [address] [id number] [place] [address]- 8760 Jul, [facility] [address] [id number] [place] [address] Jul, [facility] [address] [id number] [place] [address] Jul, [facility] [address] [id number] [place] [address] Jun, [facility] [address] [id number] [place] [address] Jun, [facility] [address] [id number] [place] [address] 18 Jun, 2012 [facility] [address] [id number] [place] [address] 14 Jun, 2012 [facility] [place] [facility] [address] [id number] [place] [address] 04 Jun, 2012 [facility] [address] [id number] [place] [address] 13 May, 2012 [facility] [address] [id number] [place] [address] May, [facility] [address] [id number] [place] [address] May, [facility] [place] [facility] [address] [id number] [place] [address] May, [facility] [place] [facility] [address] [facility] [id number] [place] [address] Apr, [facility] [place] [facility] [address] [id number] [place] [address] Apr, [facility] [place] [facility] [address] [id number] [place] [address] Apr, [facility] [place] [facility] [address] [id number] [place] [address] Mar, [facility] [address] [facility] [id number] [place] [address] Mar, [facility] [place] [facility] [address] [id number] [place] [address] Mar, [facility] [place] [facility] [address] [id number] [place] [address] Mar, [facility] [place] [facility] [address] [facility] [id number] [place] [address] Mar, [facility] [place] [facility] [address] [id number] [place] [address] Mar, [facility] [place] [facility] [address] [id number] [place] [address] Mar, [facility] [place] [facility] [address] [id number] [place] [address] Mar, [facility] [place] [facility] [address] [id number] [place] [address] Feb, [facility] [place] [facility] [address] [facility] [id number] [place] [address] Feb, [facility] [place] [facility] [address] [id number] [place] [address] Feb, [facility] [place] [facility] [address] [id number] [place] [address] Feb, [facility] [place] [facility] [address] [id number] [place] [address] 1536 Feb, [facility] [place] [facility] [address] [id number] [place] [address] 39[address] Feb, [facility] [place] [facility] [address] [id number] [place] [address] Feb, [facility] [place] [facility] [address] [id number] [place] [address] Feb, [facility] [place] [facility] [address] [id number] [place] [address] Feb, [facility] [place] [facility] [address] [id number] [place] [address] Feb, [facility] [place] [facility] [address] [id number] [place] [address]- [address] Feb, [facility] [place] [facility] [address] [id number] [place] [address] Feb, [facility] [place] [facility] [address] [facility] [id number] [place] [address] Feb, [facility] [place] [facility] [address] [id number] [place] [address]- 69[address] Feb, [facility] [place] [facility] [address] [id number] [place] [address]- [address] Feb, [facility] [place] [facility] [address] [id number] [place] [address] Feb, [facility] [place] [facility] [address] [id number] [place] [address]- 2496 Feb, [facility] [place] [facility] [address] [id number] [place] [address] Feb, [facility] [place] [facility] [address] [id number] [place] [address]- [address] 23 Jan, 2012 [facility] [place] [facility] [address] [id number] [place] [address]- [address] Jan, [facility] [place] [facility] [address] [id number] [place] [address]- [address] Jan, [facility] [place] [facility] [address] [id number] [place] [address]- [address] Jan, [facility] [place] [facility] [address] [id number] [place] [address]- [address] 20 Jan, 2012 [facility] [place] [facility] [address] [id number] [place] [address]- [address] 19 Jan, 2012 [facility] [place] [facility] [address] [id number] [place] [address]- [address] 18 Jan, 2012 [facility] [place] [facility] [address] [id number], [place] [address] 18 Jan, 2012 [facility] [place] [facility] [address] [id number] [place] [address]- [address]81 15 Jan, 2012 [facility] [place] [facility] [address] [id number], [place] [address] 15 Jan, 2012 [facility] [place] [facility] [address] [id number], [place] [address]- [address] 11 Jan, 2012 [facility] [place] [facility] [address] [id number], [place] [address] 11 Jan, 2012 [facility] [place] [facility] [address] [id number], [place] [address] 10 Jan, 2012 [facility] [place] [facility] [address] [id number], [place] [address] 09 Jan, 2012 [facility] [place] [facility] [address] [id number], [place] [address]- [address] 02 Jan, 2012 [facility] [place] [facility] [address] [id number] [place] [address]- 8415 29 Dec, 2011 [facility] [place] [facility] [address] [id number] [place] [address]- 8206 28 Dec, 2011 [facility] [place] [facility] [address] [id number] [place] [address]46 27 Dec, 2011 [facility] [place] [facility] [address] [id number] [place] [address]- 4436 26 Dec, 2011 [facility] [place] [facility] [address] [id number] [place] [address]- 1494 24 Nov, 2011 [facility] [place] [facility] [address] [id number] [place] [address]- [address]846 Nov, [facility] [place] [facility] [address] [id number] [place] [address]- 7817 Nov, [facility] [place] [facility] [address] [id number] [place] [address]- [address] Nov, [facility] [place] [facility] [address] [id number] [place] [address]- [address] Nov, [facility] [place] [facility] [address] [id number] [place] [address]- 4735 Nov, [facility] [place] [facility] [address] [id number] [place] [address] Nov, [facility] [place] [facility] [address] [id number] [place] [address] Nov, [facility] [place] [facility] [address] [id number] [place] [address] Nov, [facility] [place] [facility] [address] [id number] [place] [address] Nov, [facility] [place] [facility] [address] [id number] [place] [address] Nov, [facility] [place] [facility] [address] [id number] [place] [address] Oct, [facility] [place] [facility] [address] [id number] [place] [address] Oct, [facility] [place] [facility] [address] [id number] [place] [address] Oct, [facility] [place] [facility] [address] [id number] [place] [address] Oct, [facility] [place] [facility] [address] [id number] [place] [address] Oct, [facility] [place] [facility] [address] [id number] [place] [address] Oct, [facility] [place] [facility] [address] [id number] [place] [address] Oct, [facility] [place] [facility] [address] [id number] [place] [address] 9868 Oct, [facility] [place] [facility] [address] [id number] [place] [address] Sep, [facility] [place] [facility] [address] [id number] [place] [address] 279[address] Sep, [facility] [place] [facility] [address] [id number] [place] [address] Sep, [facility] [place] [facility] [address] [id number] [place] [address] Sep, [facility] [place] [facility] [address] [id number] [place] [address] Sep, [facility] [place] [facility] [address] [id number] [place] [address] Sep, [facility] [place] [facility] [address] [id number] [place] [address] 29[address] Sep, [facility] [place] [facility] [address] [id number] [place] [address] August, [facility] [place] [facility] [address] [id number] [place] [address] August, [facility] [address] [id number] [place] [address] August, [facility] [place] [facility] [address] [id number] [place] [address] 8266 August, [facility] [address] [id number] [place] [address]76 August, [facility] [place] [facility] [address] [id number] [place] [address] 98[address] August, [facility] [address] [id number] [place] [address] August, [facility] [address] [id number] [place] [address] 3548 August, [facility] [address] [id number] [place] [address]704 28 Jul, 2011 [facility] [place] [facility] [address] [id number] [place] [address] 17 Jul, 2011 [facility] [address] [id number] [place] [address]- [address] 13 Jul, 2011 [facility] [place] [facility] [address] [id number] [place] [address]- 78[address] Jul, [facility] [place] [facility] [address] [id number] [place] [address]- [address]683 05 Jul, 2011 [facility] [place] [facility] [address] [id number] [place] [address]2 28 Jun, 2011 [facility] [place] [facility] [address] [id number] [place] [address] 2011 [facility] [place] [facility] [address] [id number] [place] [address] 8982 20 Jun, 2011 [facility] [place] [facility] [address] [id number] [place] [address] 0689 19 Jun, 2011 [facility] [place] [facility] [address] [id number] [place] [address]- 7175 12 Jun, 2011 [facility] [place] [facility] [address] [id number] [place] [address] 3696 Jun, [facility] [place] [facility] [address] [id number] [place] [address] 4776 Jun, [facility] [place] [facility] [address] [id number] [place] [address]- 3836 Jun, [facility] [place] [facility] [address] [id number] [place] [address] 5935 Jun, [facility] [place] [facility] [address] [id number] [place] [address]- 9427 27 May, 2011 [facility] [place] [facility] [address] [id number] [place] [address]24 24 May, 2011 [facility] [place] [facility] [address] [id number] [place] [address] May, [facility] [place] [facility] [address] [id number] [place] [address]- [address]124 May, [facility] [place] [facility] [address] [id number] [place] [address]- 9308 May, [facility] [place] [facility] [address] [facility] [id number] [place] [address]- 3136 May, [facility] [place] [facility] [address] [facility] [id number] [place] [address]- 8069 May, [facility] [place] [facility] [address] [id number] [place] [address]- 6794 May, [facility] [place] [facility] [address] [id number] [place] [address]- 9736 Apr, [facility] [place] [facility] [address] [id number] [place] [address]- 9900 Apr, [facility] [place] [facility] [address] [facility] [id number], [place] [address] Apr, [facility] [address] [id number] [place] [address]- 8949 Apr, [facility] [address] [id number] [place] [address]- 7546 Apr, [facility] [address] [id number] [place] [address]- 3060 Apr, [facility] [address] [id number] [place] [address] 9957 Mar, [facility] [address] [id number] [place] [address] Mar, [facility] [address] [id number] [place] [address]- 5682 Mar, [facility] [address] [id number] [place] [address]- 9174 Mar, [facility] [place] [facility] [address] [id number] [place] [address]- 4242 15 Mar, 2011 [facility] [address] [id number] [place] [address]- 3446 Mar, [facility] [place] [facility] [address] [id number] [place] [address]- 7564 Mar, [facility] [place] [facility] [address] [id number] [place] [address]- 2666 Mar, [facility] [place] [facility] [address] [id number], [place] [address]993 Mar, [facility] [place] [facility] [address] [id number] [place] [address]- 0800 Mar, [facility] [place] [facility] [address] [id number] [place] [address]- 3673 05 Mar, 2011 [facility] [place] [facility] [address] [id number] [place] [address]- 3953 05 Mar, 2011 [facility] [place] [facility] [address] [id number] [place] [address]- 1055 05 Mar, 2011 [facility] [address] [id number] [place] [address]- 8426 Feb, [facility] [place] [facility] [address] [id number] [place] [address]- 3156 Feb, [facility] [address] [id number] [place] [address]- 4844 Feb, [facility] [place] [facility] [address] [id number] [place] [address]- 2189 Feb, [facility] [address] [id number] [place] [address]- 7803 Feb, [facility] [address] [id number] [place] [address]- 6350 Feb, [facility] [address] [id number] [place] [address]- 7204 Feb, [facility] [address] [id number] [place] [address]- 9759 Jan, [facility] [address] [id number] [place] [address]- 6989 Jan, [facility] [address] [facility] [id number] [place] [address]- 4511 Jan, [facility] [address] [id number] [place] [address]- 1867 Nov, [facility] [address] [id number] [place] [address]- 5035 Mar, [facility] [place] [facility] [address] [id number] [place] [address]- 6164 Mar, [facility] [place] [facility] [address] [id number] [place] [address]- 7083 Mar, [facility] [place] [facility] [address] [id number] [place] [address] Mar, [facility] [address] [facility] [id number], [place] [address]- [address] Mar, [facility] [address] [id number], [place] [address] 100[address] Feb, [facility] [address] [id number], [place] [address] Feb, [facility] [id number], [place] [address] 8698 Feb, [facility] [address] [id number] [address] Feb, [facility] [id number] [address] Feb, [facility] [address] [id number], [place] [address] Feb, IMMUNIZATIONS No Known Immunizations SOCIAL HISTORY Never Assessed REASON FOR VISIT [facility] ER Follow up-ROSS Gonzalez, Was wanting to get an X-ray of right shoulder. Pt having pain radiating down her right arm. Also pt says it hurts when the draw blood but it didn't use to. PLAN OF CARE Activity Details Follow Up 3 Months, prn Reason:CHM/HTN Pending Test MRI : Shoulder, Right VITAL SIGNS Height 58.6 in 2017-10-11 Weight 195.9 lbs 2017-10-11 Temperature 98.6 degrees Fahrenheit 2017-10-11 Heart Rate 88 bpm 2017-10-11 Respiratory Rate 20 2017-10-11 BMI 40.10 kg/m2 2017-10-11 Blood pressure systolic 126 mmHg 2017-10-11 Blood pressure diastolic 102 mmHg 2017-10-11 MEDICATIONS Medication Instructions Dosage Frequency Start Date End Date Duration Status Lisinopril 20 mg Orally Once a day 1 tablet 24h Sep, 90 days Active Levomilnacipran HCl ER 20 mg Orally Once a day 1 capsule 24h Apr, 90 days Active Albuterol Sulfate (2.5 MG/3ML) 0.083% Inhalation every 4-6 hours as needed for cough or wheeze 3 ml Jan, 12 months Active Ibuprofen 600 MG Orally every 6 hrs 1 tablet as needed for pain 6h Nov, 30 days Active Ondansetron 4 MG Orally every 8 hrs 1 tablet on the tongue and allow to dissolve 8h May, 10 days Active Symbicort Not-Taking Albuterol Sulfate 90 mcg/actuation Inhalation every 4-6 hours as needed 2 puffs by Inhalation route every 4-6 hours as needed PRN cough or wheezing Oct, 12 months Active Omeprazole 20 mg Orally 2 times a day 1 capsule 12h 90 days Active Levofloxacin 500 mg Orally Once a day 1 tablet 24h Sep, Sep, 03 days Active Exemestane 25 MG Orally Once a day 1 tablet with a meal 24h Active Melatonin 5 MG Orally Once a day 1 tablet at bedtime as needed with food 24h Active RESULTS No Results PROCEDURES Procedure Date Ordered Result Body Site X-RAY EXAM OF SHOULDER October 11, 2017 URINALYSIS, AUTO, W/O SCOPE October 11, 2017 [facility] VISIT ESTABLISHED PATIENT October 11, 2017 LAB NOT BILLED BY [facility] October 11, 2017 INSTRUCTIONS MEDICATIONS ADMINISTERED No Known Medications MEDICAL [...] Mastectomy 02/01/2017 Hospitalization History surgeries Hospitalization History [facility] ED 10/06/2017
--- OUTSIDE RECORDS SUMMARY | 2017-12-22 03:32 | XMS REPORT ---
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 Jun, [facility] [place] [facility] [address] [id number] [place] [address]- 5972 Jun, [facility] [place] [facility] [address] [id number], [place] [address]- 4926 Jun, [facility] [place] [facility] [address] [id number], [place] [address]- 9454 19 Jun, 2014 [facility] [place] [facility] [address] [id number] [place] [address]- 8926 18 Jun, 2014 [facility] [place] [facility] [address] [id number] [place] [address]- 5241 18 Jun, 2014 [facility] [place] [facility] [address] [id number] [place] [address]- 4008 18 Jun, 2014 [facility] [place] [facility] [address] [id number] [place] [address]- 2300 18 Jun, 2014 [facility] [place] [facility] [address] [id number] [place] [address]- 3880 17 Jun, 2014 [facility] [place] [facility] [address] [id number] [place] [address]- 6146 17 Jun, 2014 [facility] [place] [facility] [address] [id number] [place] [address]- 0874 17 Jun, 2014 [facility] [place] [facility] [address] [id number] [place] [address]- 6241 17 Jun, 2014 [facility] [place] [facility] [address] [id number] [place] [address]- 3902 13 Jun, 2014 [facility] [place] [facility] [address] [id number] [place] [address]- 5987 13 Jun, 2014 [facility] [place] [facility] [address] [id number] [place] [address]- 0583 12 Jun, 2014 [facility] [place] [facility] [address] [id number] [place] [address]- 1817 12 Jun, 2014 [facility] [place] [facility] [address] [id number] [place] [address]- 0949 10 Jun, 2014 [facility] [place] [facility] [address] [id number] [place] [address]- 0027 10 Jun, 2014 [facility] [place] [facility] [address] [id number] [place] [address]- 8233 10 Jun, 2014 [facility] [place] [facility] [address] [id number] [place] [address]- 7211 10 Jun, 2014 [facility] [place] [facility] [address] [id number] [place] [address]- 5969 06 Jun, 2014 [facility] [place] [facility] [address] [id number] [place] [address]- 3462 06 Jun, 2014 [facility] [place] [facility] [address] [id number] [place] [address]- 2388 Jun, 2014 [facility] [place] [facility] [address] [id number] [place] [address]- 6195 Jun, [facility] [place] [facility] [address] [id number] [place] [address]- 4713 Jun, [facility] [place] [facility] [address] [id number] [place] [address]- 5800 Jun, [facility] [place] [facility] [address] [id number] [place] [address]- 9152 May, 2014 [facility] [place] [facility] [address] [id number] [place] [address]- 1928 May, 2014 [facility] [place] [facility] [address] [id number] [place] [address]- 3421 May, 2014 [facility] [place] [facility] [address] [id number] [place] [address]- 3429 May, 2014 [facility] [place] [facility] [address] [id number] [place] [address]- 6390 May, 2014 [facility] [place] [facility] [address] [id number] [place] [address]- 1092 May, 2014 [facility] [place] [facility] [address] [id number] [place] [address]- 1896 May, 2014 [facility] [place] [facility] [address] [id number] [place] [address]- 2470 May, 2014 [facility] [place] [facility] [address] [id number] [place] [address]- 6897 May, 2014 [facility] [place] [facility] [address] [id number] [place] [address]- 5824 May, 2014 [facility] [place] [facility] [address] [id number] [place] [address]- 5550 May, 2014 [facility] [place] [facility] [address] [facility] [id number] [place] [address]- 6853 May, 2014 [facility] [place] [facility] [address] [id number] [place] [address]- 2186 05 May, 2014 [facility] [place] [facility] [address] [id number] [place] [address]- 9043 May, [facility] [place] [facility] [address] [id number] [place] [address]- 7556 May, [facility] [place] [facility] [address] [id number] [place] [address]- 6455 May, [facility] [place] [facility] [address] [id number] [place] [address]- 2124 Apr, [facility] [place] [facility] [address] [id number] [place] [address]- 3081 Apr, [facility] [place] [facility] [address] [id number] [place] [address]- 2268 Apr, [facility] [place] [facility] [address] [id number] [place] [address]- 5557 Apr, [facility] [place] [facility] [address] [id number] [place] [address]- 2582 Apr, [facility] [place] [facility] [address] [id number] [place] [address]- 5023 Apr, [facility] [place] [facility] [address] [id number] [place] [address]- 5810 Apr, [facility] [place] [facility] [address] [id number] [place] [address]- 1964 Apr, [facility] [place] [facility] [address] [id number] [place] [address]- 4012 Apr, [facility] [place] [facility] [address] [id number] [place] [address]- 0266 Apr, [facility] [place] [facility] [address] [id number] [place] [address]- 7553 Apr, [facility] [place] [facility] [address] [id number] [place] [address]- 3140 Apr, [facility] [place] [facility] [address] [id number] [place] [address]- 7386 Apr, [facility] [place] [facility] [address] [id number] [place] [address]- 8606 Apr, [facility] [place] [facility] [address] [id number] [place] [address]- 8033 Apr, [facility] [place] [facility] [address] [id number] [place] [address]- 3118 Mar, [facility] [place] [facility] [address] [id number] [place] [address]- 0481 Mar, [facility] [place] [facility] [address] [id number] [place] [address]- 2481 Mar, [facility] [place] [facility] [address] [id number] [place] [address]- 1067 Mar, [facility] [place] [facility] [address] [id number] [place] [address]- 9306 Mar, [facility] [place] [facility] [address] [id number] [place] [address]- 7928 Mar, [facility] [place] [facility] [address] [id number] [place] [address]- 8871 15 Mar, 2014 [facility] [place] [facility] [address] [id number] [place] [address]- 5657 15 Mar, 2014 [facility] [place] [facility] [address] [id number], [place] [address]- 4711 15 Mar, 2014 [facility] [place] [facility] [address] [id number] [place] [address]- 1706 15 Mar, 2014 [facility] [place] [facility] [address] [id number] [place] [address]- 9476 15 Mar, 2014 [facility] [place] [facility] [address] [id number] [place] [address]- 2048 15 Mar, 2014 [facility] [place] [facility] [address] [id number] [place] [address]- 3859 Mar, [facility] [place] [facility] [address] [id number] [place] [address]- 2258 Mar, [facility] [place] [facility] [address] [id number] [place] [address]- 2741 Mar, [facility] [place] [facility] [address] [id number] [place] [address]- 1511 Mar, [facility] [place] [facility] [address] [id number] [place] [address]- 5942 Mar, [facility] [place] [facility] [address] [id number] [place] [address]- 6323 Mar, [facility] [place] [facility] [address] [id number] [place] [address]- 4712 Feb, [facility] [place] [facility] [address] [id number] [place] [address]- 7595 Feb, [facility] [place] [facility] [address] [id number] [place] [address]- 6587 Feb, [facility] [place] [facility] [address] [id number] [place] [address]- 3980 Feb, [facility] [place] [facility] [address] [facility] [id number] [place] [address]- 8705 Feb, [facility] [place] [facility] [address] [id number] [place] [address]- 1451 Feb, [facility] [place] [facility] [address] [id number] [place] [address] Feb, [facility] [place] [facility] [address] [id number] [place] [address] Feb, [facility] [place] [facility] [address] [id number] [place] [address] Jan, [facility] [place] [facility] [address] [id number] [place] [address] Jan, [facility] [place] [facility] [address] [id number] [place] [address] Jan, [facility] [place] [facility] [address] [id number] [place] [address] Jan, [facility] [place] [facility] [address] [id number] [place] [address] Jan, [facility] [place] [facility] [address] [id number] [place] [address] Jan, [facility] [place] [facility] [address] [id number] [place] [address] Jan, [facility] [place] [facility] [address] [id number] [place] [address] Jan, [facility] [place] [facility] [address] [id number] [place] [address] Jan, [facility] [place] [facility] [address] [id number] [place] [address] Jan, [facility] [place] [facility] [address] [id number] [place] [address] Jan, [facility] [place] [facility] [address] [id number] [place] [address] Jan, [facility] [place] [facility] [address] [id number] [place] [address] Jan, [facility] [place] [facility] [address] [id number], [place] [address] Jan, [facility] [place] [facility] [address] [id number] [place] [address] Jan, [facility] [place] [facility] [address] [id number] [place] [address] 16 Jan, 2014 [facility] [place] [facility] [address] [id number], [place] [address] Jan, [facility] [place] [facility] [address] [id number], [place] [address] 13 Jan, 2014 [facility] [place] [facility] [address] [id number] [place] [address] 29 Sep, 2013 [facility] [place] [facility] [address] [id number] [place] [address]46 29 Dec, 2013 [facility] [place] [facility] [address] [id number] [place] [address] 2546 26 Dec, 2013 [facility] [place] [facility] [address] [id number] [place] [address] 2546 26 Dec, 2013 [facility] [place] [facility] [address] [id number] [place] [address] 2549 26 Dec, 2013 [facility] [place] [facility] [address] [id number] [place] [address] 26 Dec, 2013 [facility] [place] [facility] [address] [id number] [place] [address]- [address] 23 Dec, 2013 [facility] [place] [facility] [address] [id number] [place] [address]- [address] 23 Dec, 2013 [facility] [place] [facility] [address] [id number] [place] [address] 2541 22 Dec, 2013 [facility] [place] [facility] [address] [id number] [place] [address] 2543 22 Dec, 2013 [facility] [place] [facility] [address] [id number], [place] [address] 16 Dec, 2013 [facility] [place] [facility] [address] [id number], [place] [address] 16 Dec, 2013 [facility] [place] [facility] [address] [id number], [place] [address] 15 Dec, 2013 [facility] [place] [facility] [address] [id number] [place] [address] 2546 15 Dec, 2013 [facility] [place] [facility] [address] [id number] [place] [address] 09 Dec, 2013 [facility] [place] [facility] [address] [id number] [place] [address] Dec, [facility] [place] [facility] [address] [id number] [place] [address] Dec, [facility] [place] [facility] [address] [id number] [place] [address] Nov, [facility] [place] [facility] [address] [id number] [place] [address] 118[address] Nov, [facility] [place] [facility] [address] [id number] [place] [address] Nov, [facility] [place] [facility] [address] [id number] [place] [address] Nov, [facility] [place] [facility] [address] [id number] [place] [address] Nov, [facility] [place] [facility] [address] [id number] [place] [address] Nov, [facility] [place] [facility] [address] [id number] [place] [address] Nov, [facility] [place] [facility] [address] [id number] [place] [address] Nov, [facility] [place] [facility] [address] [id number] [place] [address]- [address] Nov, [facility] [place] [facility] [address] [id number] [place] [address]- [address] Nov, [facility] [place] [facility] [address] [id number] [place] [address]- [address] Nov, [facility] [place] [facility] [address] [id number] [place] [address]- [address] Nov, [facility] [place] [facility] [address] [id number] [place] [address] Nov, [facility] [place] [facility] [address] [id number] [place] [address] Nov, [facility] [place] [facility] [address] [id number] [place] [address]- [address] Nov, [facility] [place] [facility] [address] [id number] [place] [address] Nov, [facility] [place] [facility] [address] [id number] [place] [address] Nov, [facility] [place] [facility] [address] [id number] [place] [address]- 4658 Nov, [facility] [place] [facility] [address] [id number] [place] [address] Nov, [facility] [place] [facility] [address] [id number] [place] [address] 27[address] Nov, [facility] [place] [facility] [address] [id number] [place] [address]- 9[address] Nov, [facility] [place] [facility] [address] [id number] [place] [address] 8696 Oct, [facility] [place] [facility] [address] [id number] [place] [address] Oct, [facility] [place] [facility] [address] [id number] [place] [address] Oct, [facility] [place] [facility] [address] [id number] [place] [address]- [address] Oct, [facility] [place] [facility] [address] [id number] [place] [address]- 7[address] Oct, [facility] [facility] [address] [id number] [place] [address] Oct, [facility] [place] [facility] [address] [id number] [place] [address] 8310 Oct, [facility] [place] [facility] [address] [id number] [place] [address] 4693 Oct, [facility] [place] [facility] [address] [id number] [place] [address]- 0785 15 Oct, 2013 [facility] [place] [facility] [address] [id number] [place] [address]- 5698 14 Oct, 2013 [facility] [place] [facility] [address] [id number] [place] [address]- 6242 Oct, [facility] [place] [facility] [address] [id number] [place] [address]- 1342 Oct, [facility] [place] [facility] [address] [id number] [place] [address] 9206 Oct, [facility] [place] [facility] [address] [id number] [place] [address]- 0536 Oct, [facility] [place] [facility] [address] [id number] [place] [address]- 6836 Oct, [facility] [place] [facility] [address] [id number] [place] [address]- 7607 Sep, [facility] [place] [facility] [address] [id number] [place] [address]- 9507 Sep, [facility] [place] [facility] [address] [id number] [place] [address]- 6456 Sep, [facility] [place] [facility] [address] [id number] [place] [address]- 4041 Sep, [facility] [place] [facility] [address] [id number] [place] [address]- 6846 Sep, [facility] [place] [facility] [address] [id number] [place] [address]- 7540 Sep, [facility] [place] [facility] [address] [id number] [place] [address]- 0110 Sep, [facility] [place] [facility] [address] [id number] [place] [address]- 9816 Sep, [facility] [place] [facility] [address] [id number] [place] [address]- 8210 17 Sep, 2013 [facility] [place] [facility] [address] [id number] [place] [address]- 2855 Sep, [facility] [place] [facility] [address] [id number] [place] [address]- 5690 Sep, [facility] [place] [facility] [address] [id number] [place] [address]- 3776 Sep, [facility] [place] [facility] [address] [id number] [place] [address]- 1320 Sep, [facility] [place] [facility] [address] [id number] [place] [address]- 6460 Sep, [facility] [place] [facility] [address] [id number] [place] [address]- 6561 Sep, [facility] [place] [facility] [address] [id number] [place] [address]- 5106 Sep, [facility] [place] [facility] [address] [id number] [place] [address]- 3881 Sep, [facility] [place] [address] [id number] [place] [address]- 7086 Sep, [facility] [place] [facility] [address] [id number] [place] [address]- 0021 Sep, [facility] [place] [facility] [address] [id number] [place] [address]- 0528 Sep, [facility] [place] [facility] [address] [id number] [place] [address]- 5208 Sep, [facility] [address] [id number] [place] [address]- 6832 Sep, [facility] [place] [address] [id number] [place] [address]- 9024 August, [facility] [address] [id number] [place] [address]- 3413 August, [facility] [address] [id number] [place] [address]- 6735 August, [facility] [address] [id number] [place] [address]- 6685 August, [facility] [place] [address] [id number] [place] [address]- 2061 August, [facility] [address] [id number] [place] [address]- 6736 August, [facility] [place] [facility] [address] [id number] [place] [address]- 2858 August, [facility] [address] [id number] [place] [address]- 7373 August, [facility] [facility] [address] [id number] [place] [address]- 6889 August, [facility] [address] [id number] [place] [address]- 4802 August, [facility] [address] [id number] [place] [address]- 5261 August, [facility] [address] [id number] [place] [address]- 7752 August, [facility] [address] [id number] [place] [address]- 3120 August, [facility] [address] [id number] [place] [address]- 8333 August, [facility] [address] [id number] [place] [address]- 2311 August, [facility] [address] [id number] [place] [address]- 0919 August, [facility] [address] [id number] [place] [address]- 9531 August, [facility] [address] [id number] [place] [address]- 0199 August, [facility] [address] [id number] [place] [address]- 5165 Jul, [facility] [address] [id number] [place] [address]- 5758 Jul, [facility] [address] [id number] [place] [address]- 2965 Jul, [facility] [address] [id number] [place] [address]- 8146 Jul, [facility] [address] [id number] [place] [address]- 7731 Jul, [facility] [address] [id number] [place] [address]- 4773 Jul, [facility] [address] [id number] [place] [address]- 8999 Jul, [facility] [address] [id number] [place] [address]- 1968 Jul, [facility] [address] [id number] [place] [address]- 3631 Jul, [facility] [address] [id number] [place] [address]- 4090 Jul, [facility] [address] [id number] [place] [address]- 1695 Jul, [facility] [address] [id number] [place] [address]- 2825 Jul, [facility] [address] [id number] [place] [address]- 0267 Jul, [facility] [address] [id number] [place] [address]- 9218 Jul, [facility] [address] [id number] [place] [address]- 9572 Jul, [facility] [address] [id number] [place] [address]- 7598 Jul, [facility] [address] [id number] [place] [address]- 6918 17 Jul, 2013 [facility] [address] [id number] [place] [address]- 5695 16 Jul, 2013 [facility] [address] [id number] [place] [address]- 5032 16 Jul, 2013 [facility] [address] [id number] [place] [address]- 2935 15 Jul, 2013 [facility] [address] [id number] [place] [address]- 8630 15 Jul, 2013 [facility] [address] [id number] [place] [address]- 8959 14 Jul, 2013 [facility] [address] [id number] [place] [address]- 3177 Jul, [facility] [address] [id number] [place] [address]- 5215 Jul, [facility] [address] [id number] [place] [address]- 2190 Jul, [facility] [address] [id number] [place] [address]- 5829 Jul, [facility] [address] [id number] [place] [address]- 7775 Jul, [facility] [address] [id number] [place] [address]- 5673 Jul, [facility] [address] [id number] [place] [address]- 7020 Jul, [facility] [address] [id number] [place] [address]- 3405 Jun, [facility] [address] [id number] [place] [address]- 0090 Jun, [facility] [address] [id number] [place] [address]- 5046 17 Jun, 2013 [facility] [address] [id number] [place] [address]- 1629 17 Jun, 2013 [facility] [address] [id number] [place] [address]- 7176 Jun, [facility] [address] [id number] [place] [address]- 4625 Jun, [facility] [address] [id number] [place] [address]- 3556 Jun, [facility] [address] [id number] [place] [address]- 0832 Jun, [facility] [address] [id number] [place] [address]- 0121 Jun, [facility] [address] [facility] [id number] [place] [address]- 3090 Jun, [facility] [address] [id number] [place] [address]- 2173 Jun, [facility] [address] [id number] [place] [address]- 0101 Jun, [facility] [address] [facility] [id number] [place] [address]- 1386 May, [facility] [address] [id number] [place] [address]- 4680 May, [facility] [address] [id number] [place] [address]- 3758 May, [facility] [address] [id number] [place] [address]- 5818 May, [facility] [address] [id number] [place] [address]- 3024 May, [facility] [address] [facility] [id number] [place] [address]- 6095 May, [facility] [address] [id number] [place] [address]- 3731 May, [facility] [address] [id number] [place] [address]- 7717 May, [facility] [address] [id number] [place] [address]- 1246 May, [facility] [address] [id number] [place] [address]- 0068 May, [facility] [address] [id number] [place] [address]- 0980 Apr, [facility] [address] [id number] [place] [address]- 9081 Apr, [facility] [address] [id number] [place] [address]- 5113 Apr, [facility] [address] [id number] [place] [address]- 8622 Apr, [facility] [address] [id number] [place] [address]- 1800 Apr, [facility] [address] [id number] [place] [address]- 5101 Apr, [facility] [address] [id number] [place] [address]- 9136 Apr, [facility] [address] [id number] [place] [address]- 3326 Apr, [facility] [address] [id number] [place] [address]- 7742 Apr, [facility] [address] [id number] [place] [address]- 7342 Apr, [facility] [address] [id number] [place] [address]- 4959 Mar, [facility] [address] [id number], [place] [address]- 9393 Mar, [facility] [address] [id number] [place] [address]- 6018 Mar, [facility] [address] [id number] [place] [address]- 7344 Mar, [facility] [address] [id number] [place] [address]- 5606 Mar, [facility] [address] [id number] [place] [address]- 0502 Mar, [facility] [facility] [address] [id number] [place] [address]- 7063 Feb, [facility] [place] [address] [id number] [place] [address]- 6708 Feb, [facility] [address] [facility] [id number] [place] [address]- 1197 Feb, [facility] [address] [id number] [place] [address]- 2677 Jan, [facility] [address] [facility] [id number] [place] [address]- 9039 30 Jan, 2013 [facility] [address] [facility] [id number] [place] [address]- 6413 Jan, [facility] [address] [id number], [place] [address]- 4583 28 Jan, 2013 [facility] [address] [id number], [place] [address]- 8935 15 Jan, 2013 [facility] [address] [id number] [place] [address]- 4219 15 Jan, 2013 [facility] [address] [facility] [id number], [place] [address]- 0122 Jan, [facility] [address] [facility] [id number], [place] [address]- 9659 11 Jan, 2013 [facility] [place] [facility] [address] [id number] [place] [address]- 4352 Jan, [facility] [place] [facility] [address] [id number] [place] [address]- 9224 Jan, [facility] [place] [facility] [address] [id number] [place] [address]- 2096 30 Dec, 2012 [facility] [place] [facility] [address] [id number] [place] [address]- 6136 25 Dec, 2012 [facility] [address] [id number] [place] [address]- 7087 11 Dec, 2012 [facility] [facility] [address] [id number] [place] [address]- 8103 Dec, 2012 [facility] [place] [facility] [address] [id number] [place] [address]- 9574 05 Dec, 2012 [facility] [place] [facility] [address] [id number] [place] [address]- 1635 Dec, 2012 [facility] [place] [facility] [address] [id number] [place] [address]- 4269 Nov, [facility] [place] [facility] [address] [id number] [place] [address]- 0980 Nov, [facility] [address] [id number] [place] [address]- 3758 Nov, [facility] [place] [facility] [address] [id number] [place] [address]- 5835 Nov, [facility] [place] [facility] [address] [id number] [place] [address] 2544 Nov, [facility] [place] [facility] [address] [id number] [place] [address]- 4946 Nov, [facility] [address] [id number] [place] [address]- 2544 Nov, [facility] [place] [facility] [address] [id number] [place] [address]- 3357 Nov, [facility] [address] [id number] [place] [address]- 2240 Nov, [facility] [place] [facility] [address] [id number] [place] [address]- 1028 Nov, [facility] [place] [facility] [address] [id number] [place] [address]- 7101 Nov, [facility] [place] [facility] [address] [id number] [place] [address]- 1096 Nov, [facility] [place] [facility] [address] [id number] [place] [address]- 4107 Oct, [facility] [place] [facility] [address] [id number] [place] [address]- 3148 Oct, [facility] [place] [facility] [address] [id number] [place] [address]- 5136 Oct, [facility] [place] [facility] [address] [id number] [place] [address]- 1791 Sep, [facility] [place] [facility] [address] [id number] [place] [address]- 7578 Sep, [facility] [place] [facility] [address] [id number] [place] [address]- 5709 Sep, [facility] [place] [facility] [address] [id number] [place] [address]- 0596 August, [facility] [place] [facility] [address] [id number] [place] [address]- 5625 August, [facility] [place] [facility] [address] [id number] [place] [address]- 0334 August, [facility] [place] [facility] [address] [id number] [place] [address]- 7452 August, [facility] [place] [facility] [address] [id number] [place] [address]- 2352 August, [facility] [place] [facility] [address] [id number] [place] [address]- 9313 August, [facility] [address] [id number] [place] [address]- 2076 30 Jul, 2012 [facility] [place] [facility] [address] [id number] [place] [address]- 2125 15 Jul, 2012 [facility] [address] [id number] [place] [address]- 8406 Jul, [facility] [place] [facility] [address] [id number] [place] [address]- 6013 Jul, [facility] [address] [id number] [place] [address]- 3702 Jul, [facility] [place] [facility] [address] [id number] [place] [address]- 9081 Jul, [facility] [address] [id number] [place] [address]- 2520 2012 [facility] [address] [id number] [place] [address]- 0913 20 Jun, 2012 [facility] [address] [id number] [place] [address]- 8814 18 Jun, 2012 [facility] [address] [id number] [place] [address]- 3403 14 Jun, 2012 [facility] [place] [facility] [address] [id number] [place] [address]- 2234 04 Jun, 2012 [facility] [place] [facility] [address] [id number] [place] [address]- 4564 May, [facility] [place] [facility] [address] [id number] [place] [address]- 0740 12 May, 2012 [facility] [place] [facility] [address] [id number] [place] [address]- 7882 May, [facility] [place] [facility] [address] [id number] [place] [address]- 5403 08 May, 2012 [facility] [address] [id number] [place] [address]- 8503 Apr, [facility] [place] [facility] [address] [id number] [place] [address]- 0323 Apr, [facility] [place] [facility] [address] [id number] [place] [address]- 2197 Apr, [facility] [place] [facility] [address] [id number] [place] [address]- 5222 Mar, [facility] [place] [facility] [address] [id number] [place] [address]- 6906 Mar, [facility] [place] [facility] [address] [id number] [place] [address]- 8126 Mar, [facility] [place] [facility] [address] [id number] [place] [address]- 8248 Mar, [facility] [place] [facility] [address] [id number] [place] [address]- 5807 Mar, [facility] [place] [facility] [address] [id number] [place] [address]- 2701 Mar, [facility] [place] [facility] [address] [id number] [place] [address]- 1156 Mar, [facility] [place] [facility] [address] [id number] [place] [address]- 9556 Mar, [facility] [place] [facility] [address] [id number], [place] [address] Feb, [facility] [place] [facility] [address] [id number] [place] [address] Feb, [facility] [place] [facility] [address] [id number] [place] [address] Feb, [facility] [place] [facility] [address] [id number] [place] [address] Feb, [facility] [place] [facility] [address] [id number], [place] [address] Feb, [facility] [place] [facility] [address] [id number] [place] [address] Feb, [facility] [place] [facility] [address] [id number] [place] [address] Feb, [facility] [place] [facility] [address] [facility] [id number] [place] [address] Feb, [facility] [place] [facility] [address] [id number] [place] [address] 1460 Feb, [facility] [place] [facility] [address] [id number] [place] [address] Feb, [facility] [place] [facility] [address] [facility] [id number] [place] [address] Feb, [facility] [place] [facility] [address] [place] [place] [id number] [address] Feb, [facility] [place] [facility] [address] [facility] [id number] [place] [address] Feb, [facility] [place] [facility] [address] [facility] [id number] [place] [address] Feb, [facility] [place] [facility] [address] [facility] [id number] [place] [address]204 Feb, [facility] [place] [facility] [address] [facility] [id number], [place] [address] Feb, [facility] [place] [facility] [address] [facility] [id number], [place] [address] Feb, [facility] [place] [facility] [address] [facility] [id number], [place] [address] Feb, [facility] [place] [facility] [address] [facility] [id number] [place] [address] Jan, [facility] [place] [facility] [address] [facility] [id number], [place] [address] Jan, [facility] [place] [facility] [address] [id number] [place] [address]- [address]69 22 Jan, 2011 [facility] [place] [facility] [address] [id number] [place] [address]204 20 Jan, 2012 [facility] [place] [facility] [address] [id number] [place] [address]- [address] 20 Jan, 2012 [facility] [place] [facility] [address] [id number] [place] [address]40 19 Jan, 2012 [facility] [place] [facility] [address] [id number] [place] [address]- [address]116 18 Jan, 2012 [facility] [place] [facility] [address] [id number] [place] [address] 18 Jan, 2012 [facility] [place] [facility] [address] [id number] [place] [address] 15 Jan, 2012 [facility] [place] [facility] [address] [id number] [place] [address]- 1415 15 Jan, 2012 [facility] [place] [facility] [address] [id number] [place] [address]- 1696 11 Jan, 2012 [facility] [place] [facility] [address] [id number] [place] [address]- 2796 11 Jan, 2012 [facility] [place] [facility] [address] [facility] [id number] [place] [address]- 6581 10 Jan, 2012 [facility] [place] [facility] [address] [id number] [place] [address]- [address] 09 Jan, 2012 [facility] [place] [facility] [address] [id number] [place] [address]- 6580 02 Jan, 2012 [facility] [place] [facility] [address] [id number] [place] [address]- [address]646 29 Dec, 2011 [facility] [place] [facility] [address] [id number] [place] [address]- 6296 28 Dec, 2011 [facility] [place] [facility] [address] [id number] [place] [address]791 Dec, [facility] [place] [facility] [address] [id number] [place] [address] Dec, [facility] [place] [facility] [address] [id number] [place] [address]- [address]80 Nov, [facility] [place] [facility] [address] [id number] [place] [address]951 Nov, [facility] [place] [facility] [address] [id number] [place] [address]- 2018 Nov, [facility] [place] [facility] [address] [id number] [place] [address]- 8541 Nov, [facility] [place] [facility] [address] [id number] [place] [address]- 1700 Nov, [facility] [place] [facility] [address] [id number] [place] [address]- 2224 Nov, [facility] [place] [facility] [address] [id number] [place] [address]- 5211 Nov, [facility] [place] [facility] [address] [id number] [place] [address]- 4737 Nov, [facility] [place] [facility] [address] [id number] [place] [address]- 9004 Nov, [facility] [place] [facility] [address] [id number] [place] [address]- 0435 Nov, [facility] [place] [facility] [address] [id number] [place] [address]- 8730 Nov, [facility] [place] [facility] [address] [id number] [place] [address]- 4661 Oct, [facility] [place] [facility] [address] [id number] [place] [address]- 4721 Oct, [facility] [place] [facility] [address] [id number] [place] [address]- 7614 Oct, [facility] [place] [facility] [address] [id number] [place] [address]- 3124 Oct, [facility] [place] [facility] [address] [id number] [place] [address]- 8420 Oct, [facility] [place] [facility] [address] [id number] [place] [address]- 0046 Oct, [facility] [place] [facility] [address] [id number] [place] [address]- 0416 Oct, [facility] [place] [facility] [address] [id number] [place] [address]- 1344 Oct, [facility] [place] [facility] [address] [id number] [place] [address]- 6268 Sep, [facility] [place] [facility] [address] [id number] [place] [address]- 8[address] Sep, [facility] [place] [facility] [address] [id number] [place] [address]- 7478 Sep, [facility] [place] [facility] [address] [id number] [place] [address]- 9548 Sep, [facility] [place] [facility] [address] [id number] [place] [address]- 9464 Sep, [facility] [place] [facility] [address] [id number] [place] [address]- 8177 Sep, [facility] [place] [facility] [address] [id number] [place] [address]- 2071 Sep, [facility] [place] [facility] [address] [id number] [place] [address]- 0395 August, [facility] [place] [facility] [address] [id number] [place] [address]- 3690 August, [facility] [place] [facility] [address] [id number] [place] [address]- 0723 August, [facility] [place] [facility] [address] [id number] [place] [address]- 3606 August, [facility] [place] [facility] [address] [id number] [place] [address]- 0626 August, [facility] [address] [id number] [place] [address]- 7215 August, [facility] [place] [facility] [address] [id number] [place] [address]- 3676 August, [facility] [address] [id number] [place] [address]- 1259 August, [facility] [address] [id number] [place] [address]- 1184 Jul, [facility] [place] [facility] [address] [id number] [place] [address]- 7797 17 Jul, 2011 [facility] [address] [id number] [place] [address]- 6576 Jul, [facility] [address] [id number] [place] [address]- 8399 Jul, [facility] [address] [id number] [place] [address]- 67[address] Jul, [facility] [address] [id number] [place] [address] 28 Jun, 2011 [facility] [place] [facility] [address] [id number] [place] [address] 2011 [facility] [place] [facility] [address] [id number] [place] [address] 20 Jun, 2011 [facility] [place] [facility] [address] [id number] [place] [address] 19 Jun, 2011 [facility] [place] [facility] [address] [id number] [place] [address] 12 Jun, 2011 [facility] [place] [facility] [address] [id number] [place] [address] Jun, [facility] [place] [facility] [address] [id number] [place] [address] Jun, [facility] [address] [id number] [place] [address] Jun, [facility] [address] [id number] [place] [address] Jun, [facility] [address] [id number] [place] [address] May, [facility] [address] [id number] [place] [address] May, [facility] [address] [id number] [place] [address] May, [facility] [address] [id number] [place] [address] May, [facility] [address] [id number] [place] [address] May, [facility] [address] [id number] [place] [address] May, [facility] [address] [id number] [place] [address] May, [facility] [address] [facility] [id number] [place] [address] May, [facility] [address] [facility] [id number] [place] [address] Apr, [facility] [place] [facility] [address] [id number] [place] [address] Apr, [facility] [place] [facility] [address] [id number] [place] [address] Apr, [facility] [place] [facility] [address] [id number] [place] [address] Apr, [facility] [address] [facility] [id number], [place] [address] Apr, [facility] [address] [id number] [place] [address] 05 Apr, 2011 [facility] [address] [id number] [place] [address] Mar, [facility] [place] [facility] [address] [id number] [place] [address] Mar, [facility] [place] [facility] [address] [id number] [place] [address] Mar, [facility] [address] [id number] [place] [address] Mar, [facility] [place] [facility] [address] [id number] [place] [address] 15 Mar, 2011 [facility] [address] [id number] [place] [address] Mar, [facility] [place] [facility] [address] [id number] [place] [address] 47[address] Mar, [facility] [place] [facility] [address] [id number] [place] [address] Mar, [facility] [place] [facility] [address] [id number] [place] [address] Mar, [facility] [place] [facility] [address] [id number] [place] [address] Mar, [facility] [place] [facility] [address] [id number] [place] [address] Mar, [facility] [place] [facility] [address] [id number] [place] [address] Mar, [facility] [place] [facility] [address] [id number] [place] [address] Mar, [facility] [place] [facility] [address] [id number] [place] [address] Feb, [facility] [place] [facility] [address] [id number] [place] [address] Feb, [facility] [place] [facility] [address] [id number] [place] [address] 17 Feb, 2011 [facility] [place] [facility] [address] [id number] [place] [address] Feb, [facility] [place] [facility] [address] [id number] [place] [address] 60[address] Feb, [facility] [place] [facility] [address] [id number] [place] [address] Feb, [facility] [place] [facility] [address] [id number] [place] [address] Feb, [facility] [place] [facility] [address] [id number] [place] [address] Jan, [facility] [place] [facility] [address] [id number] [place] [address] Jan, [facility] [place] [facility] [address] [id number] [place] [address]- [address] Jan, [facility] [place] [facility] [address] [id number] [place] [address]- [address] Nov, [facility] [place] [facility] [address] [id number] [place] [address] Mar, [facility] [place] [facility] [address] [id number], [place] [address] Mar, [facility] [place] [facility] [address] [id number], [place] [address] 20 Mar, 2010 [facility] [place] [facility] [address] [id number] [place] [address] 74[address] 13 Mar, 2010 [facility] [place] [facility] [address] [id number] [place] [address] 07 Mar, 2010 [facility] [place] [facility] [address] [id number] [place] [address] 58[address] 30 Feb, 2010 [facility] [place] [facility] [address] [facility] [id number] [place] [address] 30 Feb, 2010 [facility] [address] [facility] [id number] [place] [address] 24 Feb, 2010 [facility] [address] [facility] [id number] [place] [address] 19 Feb, 2010 [facility] [address] [facility] [id number], [place] [address] 19 Feb, 2010 [facility] [address] [facility] [id number] [place] [address] 15 Feb, 2010 IMMUNIZATIONS No Known Immunizations SOCIAL HISTORY Never Assessed REASON FOR VISIT FYI only PLAN OF CARE VITAL SIGNS MEDICATIONS Unknown [...] Mastectomy 02/01/2017 Hospitalization History surgeries Hospitalization History [facility] ED 10/06/2017
--- OUTSIDE RECORDS SUMMARY | 2017-12-22 03:33 | XMS REPORT ---
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 [place] [address]- 8892 Jun, [facility] [place] [facility] [address] [id number] [place] [address]- 9917 Jun, [facility] [place] [facility] [address] [id number] [address]- 3502 Jun, [facility] [place] [facility] [address] [id number], [place] [address]- 9794 19 Jun, 2014 [facility] [place] [facility] [address] [id number] [place] [address]- 4526 18 Jun, 2014 [facility] [place] [facility] [address] [id number] [place] [address]- 7277 18 Jun, 2014 [facility] [place] [facility] [address] [id number] [place] [address]- 6899 18 Jun, 2014 [facility] [place] [facility] [address] [id number] [place] [address]- 6130 18 Jun, 2014 [facility] [place] [facility] [address] [id number] [place] [address]- 8735 17 Jun, 2014 [facility] [place] [facility] [address] [id number] [place] [address]- 2846 17 Jun, 2014 [facility] [place] [facility] [address] [id number] [place] [address]- 6729 17 Jun, 2014 [facility] [place] [facility] [address] [id number] [place] [address]- 4694 17 Jun, 2014 [facility] [place] [facility] [address] [id number] [place] [address]- 7244 13 Jun, 2014 [facility] [place] [facility] [address] [id number] [place] [address]- 5483 13 Jun, 2014 [facility] [place] [facility] [address] [id number] [place] [address]- 3338 12 Jun, 2014 [facility] [place] [facility] [address] [id number] [place] [address]- 2862 12 Jun, 2014 [facility] [place] [facility] [address] [id number] [place] [address]- 5576 10 Jun, 2014 [facility] [place] [facility] [address] [id number] [place] [address]- 8144 10 Jun, 2014 [facility] [place] [facility] [address] [id number] [place] [address]- 7419 10 Jun, 2014 [facility] [place] [facility] [address] [id number] [place] [address]- 3507 10 Jun, 2014 [facility] [place] [facility] [address] [id number] [place] [address]- 5170 06 Jun, 2014 [facility] [place] [facility] [address] [id number] [place] [address]- 2060 06 Jun, 2014 [facility] [place] [facility] [address] [id number] [place] [address]- 1624 Jun, 2014 [facility] [place] [facility] [address] [id number] [place] [address]- 4926 Jun, [facility] [place] [facility] [address] [id number] [place] [address]- 8699 Jun, [facility] [place] [facility] [address] [id number] [place] [address]- 7972 Jun, [facility] [place] [facility] [address] [id number] [place] [address]- 4777 May, 2014 [facility] [place] [facility] [address] [id number] [place] [address]- 2190 May, 2014 [facility] [place] [facility] [address] [id number] [place] [address]- 9628 May, 2014 [facility] [place] [facility] [address] [id number] [place] [address]- 4353 May, 2014 [facility] [place] [facility] [address] [id number] [place] [address]- 3370 May, 2014 [facility] [place] [facility] [address] [id number] [place] [address]- 7696 May, 2014 [facility] [place] [facility] [address] [id number] [place] [address]- 8628 May, 2014 [facility] [place] [facility] [address] [id number] [place] [address]- 2846 May, 2014 [facility] [place] [facility] [address] [id number] [place] [address]- 6199 May, 2014 [facility] [place] [facility] [address] [id number] [place] [address]- 0019 May, 2014 [facility] [place] [facility] [address] [id number] [place] [address]- 6896 May, 2014 [facility] [place] [facility] [address] [facility] [id number] [place] [address]- 8394 May, 2014 [facility] [place] [facility] [address] [id number] [place] [address]- 2399 05 May, 2014 [facility] [place] [facility] [address] [id number] [place] [address]- 7063 May, [facility] [place] [facility] [address] [id number] [place] [address]- 1626 May, [facility] [place] [facility] [address] [id number] [place] [address]- 7055 May, [facility] [place] [facility] [address] [id number] [place] [address]- 8867 Apr, [facility] [place] [facility] [address] [id number] [place] [address]- 4894 Apr, [facility] [place] [facility] [address] [id number] [place] [address]- 8652 Apr, [facility] [place] [facility] [address] [id number] [place] [address]- 3751 Apr, [facility] [place] [facility] [address] [id number] [place] [address]- 1371 Apr, [facility] [place] [facility] [address] [id number] [place] [address]- 1309 Apr, [facility] [place] [facility] [address] [id number] [place] [address]- 3631 Apr, [facility] [place] [facility] [address] [id number] [place] [address]- 4823 Apr, [facility] [place] [facility] [address] [id number] [place] [address]- 3619 Apr, [facility] [place] [facility] [address] [id number] [place] [address]- 5030 Apr, [facility] [place] [facility] [address] [id number] [place] [address]- 2466 Apr, [facility] [place] [facility] [address] [id number] [place] [address]- 6584 Apr, [facility] [place] [facility] [address] [id number] [place] [address]- 4102 Apr, [facility] [place] [facility] [address] [id number] [place] [address]- 4096 Apr, [facility] [place] [facility] [address] [id number] [place] [address]- 9125 Apr, [facility] [place] [facility] [address] [id number] [place] [address]- 9812 Mar, [facility] [place] [facility] [address] [id number] [place] [address]- 4748 Mar, [facility] [place] [facility] [address] [id number] [place] [address]- 0415 Mar, [facility] [place] [facility] [address] [id number] [place] [address]- 1859 Mar, [facility] [place] [facility] [address] [id number] [place] [address]- 3958 Mar, [facility] [place] [facility] [address] [id number] [place] [address]- 3436 Mar, [facility] [place] [facility] [address] [id number] [place] [address] 15 Mar, 2014 [facility] [place] [facility] [address] [id number] [place] [address] 15 Mar, 2014 [facility] [place] [facility] [address] [id number], [place] [address] 15 Mar, 2014 [facility] [place] [facility] [address] [id number] [place] [address] 15 Mar, 2014 [facility] [place] [facility] [address] [id number] [place] [address] 15 Mar, 2014 [facility] [place] [facility] [address] [id number] [place] [address] 15 Mar, 2014 [facility] [place] [facility] [address] [id number] [place] [address] Mar, [facility] [place] [facility] [address] [id number] [place] [address] Mar, [facility] [place] [facility] [address] [id number] [place] [address] Mar, [facility] [place] [facility] [address] [id number] [place] [address] Mar, [facility] [place] [facility] [address] [id number] [place] [address] Mar, [facility] [place] [facility] [address] [id number] [place] [address] Mar, [facility] [place] [facility] [address] [id number] [place] [address] Feb, [facility] [place] [facility] [address] [id number] [place] [address] Feb, [facility] [place] [facility] [address] [id number] [place] [address] Feb, [facility] [place] [facility] [address] [id number] [place] [address]- 409[address] Feb, [facility] [place] [facility] [address] [facility] [id number] [place] [address]- [address] Feb, [facility] [place] [facility] [address] [id number] [place] [address] Feb, [facility] [place] [facility] [address] [id number] [place] [address] 9427 Feb, [facility] [place] [facility] [address] [id number] [place] [address] Feb, [facility] [place] [facility] [address] [id number] [place] [address] Jan, [facility] [place] [facility] [address] [id number] [place] [address]- 1069 Jan, [facility] [place] [facility] [address] [id number] [place] [address]- 3537 Jan, [facility] [place] [facility] [address] [id number] [place] [address] Jan, [facility] [place] [facility] [address] [id number] [place] [address] Jan, [facility] [place] [facility] [address] [id number] [place] [address] Jan, [facility] [place] [facility] [address] [id number] [place] [address]- [address] Jan, [facility] [place] [facility] [address] [id number] [place] [address] Jan, [facility] [place] [facility] [address] [id number] [place] [address]- [address] Jan, [facility] [place] [facility] [address] [id number] [place] [address] Jan, [facility] [place] [facility] [address] [id number] [place] [address] 7[address] Jan, [facility] [place] [facility] [address] [id number] [place] [address]- 4528 Jan, [facility] [place] [facility] [address] [id number] [place] [address] 9915 Jan, [facility] [place] [facility] [address] [id number], [place] [address] Jan, [facility] [place] [facility] [address] [id number] [place] [address] 4169 Jan, [facility] [place] [facility] [address] [id number] [place] [address]- 1555 16 Jan, 2014 [facility] [place] [facility] [address] [id number], [place] [address] Jan, [facility] [place] [facility] [address] [id number], [place] [address]- [address] 13 Jan, 2014 [facility] [place] [facility] [address] [id number] [place] [address]46 29 Sep, 2013 [facility] [place] [facility] [address] [id number] [place] [address] 2546 29 Dec, 2013 [facility] [place] [facility] [address] [id number] [place] [address] 2546 26 Dec, 2013 [facility] [place] [facility] [address] [id number] [place] [address] 2546 26 Dec, 2013 [facility] [place] [facility] [address] [id number] [place] [address] 2542 26 Dec, 2013 [facility] [place] [facility] [address] [id number] [place] [address]- 7567 26 Dec, 2013 [facility] [place] [facility] [address] [id number] [place] [address]- [address]68 23 Dec, 2013 [facility] [place] [facility] [address] [id number] [place] [address]- [address] 23 Dec, 2013 [facility] [place] [facility] [address] [id number] [place] [address] 2544 22 Dec, 2013 [facility] [place] [facility] [address] [id number] [place] [address] 2549 22 Dec, 2013 [facility] [place] [facility] [address] [id number], [place] [address]41 16 Dec, 2013 [facility] [place] [facility] [address] [id number], [place] [address]- [address]46 16 Dec, 2013 [facility] [place] [facility] [address] [id number], [place] [address] 2546 15 Dec, 2013 [facility] [place] [facility] [address] [id number] [place] [address] 2546 15 Dec, 2013 [facility] [place] [facility] [address] [id number] [place] [address]- 2548 09 Dec, 2013 [facility] [place] [facility] [address] [id number] [place] [address]- [address] Dec, [facility] [place] [facility] [address] [id number] [place] [address]- 1465 Dec, [facility] [place] [facility] [address] [id number] [place] [address] Nov, [facility] [place] [facility] [address] [id number] [place] [address]- 8517 Nov, [facility] [place] [facility] [address] [id number] [place] [address]- [address] Nov, [facility] [place] [facility] [address] [id number] [place] [address]- [address] Nov, [facility] [place] [facility] [address] [id number] [place] [address] Nov, [facility] [place] [facility] [address] [id number] [place] [address] Nov, [facility] [place] [facility] [address] [id number] [place] [address]- 79[address] Nov, [facility] [place] [facility] [address] [id number] [place] [address]- 7078 Nov, [facility] [place] [facility] [address] [id number] [place] [address]- 6164 Nov, [facility] [place] [facility] [address] [id number] [place] [address]- 655[address] Nov, [facility] [place] [facility] [address] [id number] [place] [address]- 4547 Nov, [facility] [place] [facility] [address] [id number] [place] [address]- 0724 Nov, [facility] [place] [facility] [address] [id number] [place] [address]- 8854 Nov, [facility] [place] [facility] [address] [id number] [place] [address]- 3[address] Nov, [facility] [place] [facility] [address] [id number] [place] [address]- 8665 Nov, [facility] [place] [facility] [address] [id number] [place] [address]- 2467 Nov, [facility] [place] [facility] [address] [id number] [place] [address]- 9699 Nov, [facility] [place] [facility] [address] [id number] [place] [address]- 1824 Nov, [facility] [place] [facility] [address] [id number] [place] [address]- 5059 Nov, [facility] [place] [facility] [address] [id number] [place] [address]- 2233 Nov, [facility] [place] [facility] [address] [id number] [place] [address]- 9071 Nov, [facility] [place] [facility] [address] [id number] [place] [address]- 9576 Oct, [facility] [place] [facility] [address] [id number] [place] [address] 1953 Oct, [facility] [place] [facility] [address] [id number] [place] [address]- 3171 Oct, [facility] [place] [facility] [address] [id number] [place] [address]- 8891 Oct, [facility] [place] [facility] [address] [id number] [place] [address]- 8836 Oct, [facility] [place] [facility] [address] [id number] [place] [address]- 8927 Oct, [facility] [place] [facility] [address] [id number] [place] [address]- 1385 Oct, [facility] [place] [facility] [address] [id number] [place] [address]- 4240 Oct, [facility] [place] [facility] [address] [id number] [place] [address]- 9511 15 Oct, 2013 [facility] [place] [facility] [address] [id number] [place] [address]- 8465 14 Oct, 2013 [facility] [place] [facility] [address] [id number] [place] [address]- 1344 Oct, [facility] [place] [facility] [address] [id number] [place] [address]- 5828 Oct, [facility] [place] [facility] [address] [id number] [place] [address]- 0534 Oct, [facility] [place] [facility] [address] [id number] [place] [address]- 7729 Oct, [facility] [place] [facility] [address] [id number] [place] [address]- 1825 Oct, [facility] [place] [facility] [address] [id number] [place] [address]- 0616 Sep, [facility] [place] [facility] [address] [id number] [place] [address]- 3504 Sep, [facility] [place] [facility] [address] [id number] [place] [address]- 3295 Sep, [facility] [place] [facility] [address] [id number] [place] [address]- 8990 Sep, [facility] [place] [facility] [address] [id number] [place] [address]- 5851 Sep, [facility] [place] [facility] [address] [id number] [place] [address]- 0335 Sep, [facility] [place] [facility] [address] [id number] [place] [address]- 4668 Sep, [facility] [place] [facility] [address] [id number] [place] [address]- 6655 Sep, [facility] [place] [facility] [address] [id number] [place] [address]- 2507 17 Sep, 2013 [facility] [place] [facility] [address] [id number] [place] [address]- 2305 Sep, [facility] [place] [facility] [address] [id number] [place] [address]- 2804 Sep, [facility] [place] [facility] [address] [id number] [place] [address]- 7089 Sep, [facility] [place] [facility] [address] [id number] [place] [address]- 0832 Sep, [facility] [place] [facility] [address] [id number] [place] [address]- 2298 Sep, [facility] [place] [facility] [address] [id number] [place] [address]- 3140 Sep, [facility] [place] [facility] [address] [id number] [place] [address]- 7290 Sep, [facility] [place] [facility] [address] [id number] [place] [address]- 4379 Sep, [facility] [place] [facility] [address] [id number] [place] [address]- 7777 Sep, [facility] [place] [facility] [address] [id number] [place] [address]- 9164 Sep, [facility] [place] [facility] [address] [id number] [place] [address]- 5285 Sep, [facility] [place] [facility] [address] [id number] [place] [address]- 1135 Sep, [facility] [place] [facility] [address] [id number] [place] [address]- 4790 Sep, [facility] [place] [facility] [address] [id number] [place] [address]- 1513 August, [facility] [place] [facility] [address] [id number] [place] [address]- 7828 August, [facility] [place] [facility] [address] [id number] [place] [address]- 1542 August, [facility] [address] [id number] [place] [address]- 2858 August, [facility] [place] [facility] [address] [id number] [place] [address]- 6949 August, [facility] [place] [facility] [address] [id number] [place] [address]- 3293 August, [facility] [place] [facility] [address] [id number] [place] [address]- 5288 August, [facility] [place] [facility] [address] [id number] [place] [address]- 5315 August, [facility] [place] [facility] [address] [id number] [place] [address]- 5462 August, [facility] [place] [facility] [address] [id number] [place] [address]- 6690 August, [facility] [place] [facility] [address] [id number] [place] [address]- 4885 August, [facility] [place] [facility] [address] [id number] [place] [address]- 9780 August, [facility] [place] [facility] [address] [id number] [place] [address]- 5237 August, [facility] [place] [facility] [address] [id number] [place] [address]- 3333 August, [facility] [place] [facility] [address] [id number] [place] [address]- 7316 August, [facility] [place] [facility] [address] [id number] [place] [address]- 5365 August, [facility] [place] [facility] [address] [id number] [place] [address]- 0307 August, [facility] [place] [facility] [address] [id number] [place] [address]- 4158 August, [facility] [place] [facility] [address] [id number] [place] [address]- 5478 Jul, [facility] [place] [facility] [address] [id number] [place] [address]- 6096 Jul, [facility] [place] [facility] [address] [id number] [place] [address]- 0585 Jul, [facility] [place] [facility] [address] [id number] [place] [address]- 7325 Jul, [facility] [place] [facility] [address] [id number] [place] [address]- 0269 Jul, [facility] [place] [facility] [address] [id number] [place] [address]- 6494 Jul, [facility] [place] [facility] [address] [id number] [place] [address]- 4948 Jul, [facility] [place] [facility] [address] [id number] [place] [address]- 4346 Jul, [facility] [place] [facility] [address] [id number] [place] [address]- 2546 Jul, [facility] [place] [facility] [address] [id number] [place] [address]- 3655 Jul, [facility] [place] [facility] [address] [id number] [place] [address]- 7566 Jul, [facility] [place] [facility] [address] [id number] [place] [address]- 9051 Jul, [facility] [place] [facility] [address] [id number] [place] [address]- 6322 Jul, [facility] [place] [facility] [address] [id number] [place] [address]- 4134 Jul, [facility] [place] [facility] [address] [id number] [place] [address]- 1066 Jul, [facility] [place] [facility] [address] [id number] [place] [address]- 5524 Jul, [facility] [place] [facility] [address] [id number] [place] [address]- 9050 17 Jul, 2013 [facility] [place] [facility] [address] [id number] [place] [address]- 4092 16 Jul, 2013 [facility] [place] [facility] [address] [id number] [place] [address]- 3604 16 Jul, 2013 [facility] [place] [facility] [address] [id number] [place] [address]- 9068 15 Jul, 2013 [facility] [place] [facility] [address] [id number] [place] [address]- 0600 15 Jul, 2013 [facility] [place] [facility] [address] [id number] [place] [address]- 6086 14 Jul, 2013 [facility] [place] [facility] [address] [id number] [place] [address]- 5198 Jul, [facility] [place] [facility] [address] [id number] [place] [address]- 2968 Jul, [facility] [place] [facility] [address] [id number] [place] [address]- 6777 Jul, [facility] [place] [facility] [address] [id number] [place] [address]- 3359 Jul, [facility] [place] [facility] [address] [id number] [place] [address]- 8655 Jul, [facility] [place] [facility] [address] [id number] [place] [address]- 6007 Jul, [facility] [place] [facility] [address] [id number] [place] [address]- 0112 Jul, [facility] [place] [facility] [address] [id number] [place] [address]- 1408 Jun, [facility] [place] [facility] [address] [id number] [place] [address]- 0506 Jun, [facility] [place] [facility] [address] [id number] [place] [address]- 9238 17 Jun, 2013 [facility] [place] [facility] [address] [id number] [place] [address]- 6274 17 Jun, 2013 [facility] [place] [facility] [address] [id number] [place] [address]- 7335 Jun, [facility] [place] [facility] [address] [id number] [place] [address]- 2659 Jun, [facility] [place] [facility] [address] [id number] [place] [address]- 4056 Jun, [facility] [place] [facility] [address] [id number] [place] [address]- 1688 Jun, [facility] [place] [facility] [address] [id number] [place] [address]- 2990 Jun, [facility] [place] [facility] [address] [facility] [id number] [place] [address]- 2811 Jun, [facility] [place] [facility] [address] [id number] [place] [address]- 7789 Jun, [facility] [place] [facility] [address] [id number] [place] [address]- 9451 Jun, [facility] [place] [facility] [address] [facility] [id number] [place] [address]- 0926 May, [facility] [place] [facility] [address] [id number] [place] [address]- 3461 May, [facility] [place] [facility] [address] [id number] [place] [address]- 9479 May, [facility] [place] [facility] [address] [id number] [place] [address]- 4707 May, [facility] [place] [facility] [address] [id number] [place] [address]- 1921 May, [facility] [place] [facility] [address] [facility] [id number] [place] [address]- 2027 May, [facility] [place] [facility] [address] [id number] [place] [address]- 6567 May, [facility] [place] [facility] [address] [id number] [place] [address]- 5564 May, [facility] [place] [facility] [address] [id number] [place] [address]- 2906 May, [facility] [place] [facility] [address] [id number] [place] [address]- 9022 May, [facility] [place] [facility] [address] [id number] [place] [address]- 7995 Apr, [facility] [place] [facility] [address] [id number] [place] [address]- 6590 Apr, [facility] [place] [facility] [address] [id number] [place] [address]- 4787 Apr, [facility] [place] [facility] [address] [id number] [place] [address]- 2703 Apr, [facility] [place] [facility] [address] [id number] [place] [address]- 8931 Apr, [facility] [place] [facility] [address] [id number] [place] [address]- 2666 Apr, [facility] [place] [facility] [address] [id number] [place] [address]- 2522 Apr, [facility] [place] [facility] [address] [id number] [place] [address]- 5643 Apr, [facility] [place] [facility] [address] [id number] [place] [address]- 1897 Apr, [facility] [place] [facility] [address] [id number] [place] [address]- 4698 Apr, [facility] [place] [facility] [address] [id number] [place] [address]- 6915 Mar, [facility] [place] [facility] [address] [id number], [place] [address]- 6466 Mar, [facility] [place] [facility] [address] [id number] [place] [address]- 5118 Mar, [facility] [place] [facility] [address] [id number] [place] [address]- 6464 Mar, [facility] [place] [facility] [address] [id number] [place] [address]- 3726 Mar, [facility] [place] [facility] [address] [id number] [place] [address]- 7409 Mar, [facility] [place] [facility] [address] [id number] [place] [address]- 1042 Feb, [facility] [place] [facility] [address] [id number] [place] [address]- 4851 Feb, [facility] [place] [facility] [address] [facility] [id number] [place] [address]- 3781 Feb, [facility] [place] [facility] [address] [id number] [place] [address]- 6068 Jan, [facility] [place] [facility] [address] [facility] [id number] [place] [address]- 4607 30 Jan, 2013 [facility] [place] [facility] [address] [facility] [id number] [place] [address]- 7761 Jan, [facility] [place] [facility] [address] [id number], [place] [address]- 9139 28 Jan, 2013 [facility] [place] [facility] [address] [id number], [place] [address]- 7389 15 Jan, 2013 [facility] [place] [facility] [address] [id number] [place] [address]- 1336 15 Jan, 2013 [facility] [place] [facility] [address] [facility] [id number], [place] [address]- 7990 Jan, [facility] [place] [facility] [address] [facility] [id number], [place] [address]- 6635 11 Jan, 2013 [facility] [place] [facility] [address] [id number] [place] [address]- 1839 Jan, [facility] [place] [facility] [address] [id number] [place] [address]- 6765 Jan, [facility] [place] [facility] [address] [id number] [place] [address]- 4026 30 Dec, 2012 [facility] [place] [facility] [address] [id number] [place] [address]- 9976 25 Dec, 2012 [facility] [place] [facility] [address] [id number] [place] [address]- 1172 11 Dec, 2012 [facility] [place] [facility] [address] [id number] [place] [address]- 0201 Dec, 2012 [facility] [place] [facility] [address] [id number] [place] [address]- 8532 05 Dec, 2012 [facility] [place] [facility] [address] [id number] [place] [address]- 7142 Dec, 2012 [facility] [place] [facility] [address] [id number] [place] [address]- 9234 Nov, [facility] [place] [facility] [address] [id number] [place] [address]- 0787 Nov, [facility] [place] [facility] [address] [id number] [place] [address]- 6375 Nov, [facility] [place] [facility] [address] [id number] [place] [address]- 4614 Nov, [facility] [place] [facility] [address] [id number] [place] [address] 2541 Nov, [facility] [place] [facility] [address] [id number] [place] [address]- 1746 Nov, [facility] [place] [facility] [address] [id number] [place] [address]- 254 Nov, [facility] [place] [facility] [address] [id number] [place] [address]- 6025 Nov, [facility] [address] [id number] [place] [address]- 5720 Nov, [facility] [place] [facility] [address] [id number] [place] [address]- 5685 Nov, [facility] [place] [facility] [address] [id number] [place] [address]- 5888 Nov, [facility] [place] [facility] [address] [id number] [place] [address]- 8585 Nov, [facility] [place] [facility] [address] [id number] [place] [address]- 8256 Oct, [facility] [place] [facility] [address] [id number] [place] [address]- 0140 Oct, [facility] [place] [facility] [address] [id number] [place] [address]- 1696 Oct, [facility] [place] [facility] [address] [id number] [place] [address]- 7160 Sep, [facility] [place] [facility] [address] [id number] [place] [address]- 1059 Sep, [facility] [place] [facility] [address] [id number] [place] [address]- 4361 Sep, [facility] [place] [facility] [address] [id number] [place] [address]- 6404 August, [facility] [place] [facility] [address] [id number] [place] [address]- 0288 August, [facility] [place] [facility] [address] [id number] [place] [address]- 2408 August, [facility] [place] [facility] [address] [id number] [place] [address]- 1012 August, [facility] [place] [facility] [address] [id number] [place] [address]- 1823 August, [facility] [place] [facility] [address] [id number] [place] [address]- 2151 August, [facility] [address] [id number] [place] [address]- 1246 30 Jul, 2012 [facility] [place] [facility] [address] [id number] [place] [address]- 4895 15 Jul, 2012 [facility] [address] [id number] [place] [address]- 7660 Jul, [facility] [place] [facility] [address] [id number] [place] [address]- 5579 Jul, [facility] [address] [id number] [place] [address]- 3896 Jul, [facility] [place] [facility] [address] [id number] [place] [address]- 2774 Jul, [facility] [address] [id number] [place] [address]- 1849 2012 [facility] [address] [id number] [place] [address]- 3421 20 Jun, 2012 [facility] [address] [id number] [place] [address]- 0985 18 Jun, 2012 [facility] [address] [id number] [place] [address]- 6563 14 Jun, 2012 [facility] [place] [facility] [address] [id number] [place] [address] 04 Jun, 2012 [facility] [place] [facility] [address] [id number] [place] [address] May, [facility] [place] [facility] [address] [id number] [place] [address] 12 May, 2012 [facility] [place] [facility] [address] [id number] [place] [address] May, [facility] [place] [facility] [address] [id number] [place] [address] 08 May, 2012 [facility] [address] [id number] [place] [address] Apr, [facility] [place] [facility] [address] [id number] [place] [address] Apr, [facility] [place] [facility] [address] [id number] [place] [address] Apr, [facility] [place] [facility] [address] [id number] [place] [address] Mar, [facility] [place] [facility] [address] [id number] [place] [address] Mar, [facility] [place] [facility] [address] [id number] [place] [address] Mar, [facility] [place] [facility] [address] [id number] [place] [address] Mar, [facility] [place] [facility] [address] [id number] [place] [address] Mar, [facility] [place] [facility] [address] [id number] [place] [address]- [address] Mar, [facility] [place] [facility] [address] [id number] [place] [address] 97[address] Mar, [facility] [place] [facility] [address] [id number] [place] [address] Mar, [facility] [place] [facility] [address] [id number], [place] [address] Feb, [facility] [place] [facility] [address] [id number] [place] [address] Feb, [facility] [place] [facility] [address] [id number] [place] [address] Feb, [facility] [place] [facility] [address] [id number] [place] [address]- 15[address] Feb, [facility] [place] [facility] [address] [id number], [place] [address] Feb, [facility] [place] [facility] [address] [id number] [place] [address] Feb, [facility] [place] [facility] [address] [id number] [place] [address]- [address] Feb, [facility] [place] [facility] [address] [facility] [id number] [place] [address]- [address] Feb, [facility] [place] [facility] [address] [id number] [place] [address] Feb, [facility] [place] [facility] [address] [id number] [place] [address] Feb, [facility] [place] [facility] [address] [facility] [id number] [place] [address] Feb, [facility] [place] [facility] [address] [place] [place] [id number] [address] Feb, [facility] [place] [facility] [address] [facility] [id number] [place] [address]- [address] Feb, [facility] [place] [facility] [address] [facility] [id number] [place] [address]- 44[address] Feb, [facility] [place] [facility] [address] [facility] [id number] [place] [address]- [address]44 Feb, [facility] [place] [facility] [address] [facility] [id number], [place] [address] Feb, [facility] [place] [facility] [address] [facility] [id number], [place] [address] Feb, [facility] [place] [facility] [address] [facility] [id number], [place] [address]- [address] Feb, [facility] [place] [facility] [address] [facility] [id number] [place] [address] Jan, [facility] [place] [facility] [address] [facility] [id number], [place] [address] Jan, [facility] [place] [facility] [address] [id number] [place] [address] 22 Jan, 2011 [facility] [place] [facility] [address] [id number] [place] [address] 20 Jan, 2012 [facility] [place] [facility] [address] [id number] [place] [address] 57[address] 20 Jan, 2012 [facility] [place] [facility] [address] [id number] [place] [address]- [address] 19 Jan, 2012 [facility] [place] [facility] [address] [id number] [place] [address] 6318 18 Jan, 2012 [facility] [place] [facility] [address] [id number] [place] [address]- [address] 18 Jan, 2012 [facility] [place] [facility] [address] [id number] [place] [address]- [address]20 15 Jan, 2012 [facility] [place] [facility] [address] [id number] [place] [address]- [address] 15 Jan, 2012 [facility] [place] [facility] [address] [id number] [place] [address]- 2860 11 Jan, 2012 [facility] [place] [facility] [address] [id number] [place] [address]- 2595 11 Jan, 2012 [facility] [place] [facility] [address] [facility] [id number] [place] [address]- [address] 10 Jan, 2012 [facility] [place] [facility] [address] [id number] [place] [address]- [address]646 09 Jan, 2012 [facility] [place] [facility] [address] [id number] [place] [address]- 7958 02 Jan, 2012 [facility] [place] [facility] [address] [id number] [place] [address]- 2406 29 Dec, 2011 [facility] [place] [facility] [address] [id number] [place] [address]- 6[address] 28 Dec, 2011 [facility] [place] [facility] [address] [id number] [place] [address]- 389[address] Dec, [facility] [place] [facility] [address] [id number] [place] [address]- 6342 Dec, [facility] [place] [facility] [address] [id number] [place] [address] 3865 Nov, [facility] [place] [facility] [address] [id number] [place] [address]- 9573 Nov, [facility] [place] [facility] [address] [id number] [place] [address]- 0869 Nov, [facility] [place] [facility] [address] [id number] [place] [address]- 1789 Nov, [facility] [place] [facility] [address] [id number] [place] [address]- 5376 Nov, [facility] [place] [facility] [address] [id number] [place] [address]- 4948 Nov, [facility] [place] [facility] [address] [id number] [place] [address]- 7331 Nov, [facility] [place] [facility] [address] [id number] [place] [address]- 3085 Nov, [facility] [place] [facility] [address] [id number] [place] [address]- 9479 Nov, [facility] [place] [facility] [address] [id number] [place] [address]- 7010 Nov, [facility] [place] [facility] [address] [id number] [place] [address]- 4526 Nov, [facility] [place] [facility] [address] [id number] [place] [address]- 3277 Oct, [facility] [place] [facility] [address] [id number] [place] [address]- 0276 Oct, [facility] [place] [facility] [address] [id number] [place] [address]- 6920 Oct, [facility] [place] [facility] [address] [id number] [place] [address]- 9855 Oct, [facility] [place] [facility] [address] [id number] [place] [address]- 8976 Oct, [facility] [place] [facility] [address] [id number] [place] [address]- 2166 Oct, [facility] [place] [facility] [address] [id number] [place] [address]- 6086 Oct, [facility] [place] [facility] [address] [id number] [place] [address]- 2760 Oct, [facility] [place] [facility] [address] [id number] [place] [address]- 6736 Sep, [facility] [place] [facility] [address] [id number] [place] [address]- 5556 Sep, [facility] [place] [facility] [address] [id number] [place] [address]- 1450 Sep, [facility] [place] [facility] [address] [id number] [place] [address] Sep, [facility] [place] [facility] [address] [id number] [place] [address] Sep, [facility] [place] [facility] [address] [id number] [place] [address] Sep, [facility] [place] [facility] [address] [id number] [place] [address] Sep, [facility] [place] [facility] [address] [id number] [place] [address] August, [facility] [place] [facility] [address] [id number] [place] [address] August, [facility] [place] [facility] [address] [id number] [place] [address] August, [facility] [place] [facility] [address] [id number] [place] [address] August, [facility] [place] [facility] [address] [id number] [place] [address] August, [facility] [address] [id number] [place] [address] August, [facility] [place] [facility] [address] [id number] [place] [address] August, [facility] [address] [id number] [place] [address] August, [facility] [address] [id number] [place] [address] Jul, [facility] [place] [facility] [address] [id number] [place] [address] 17 Jul, 2011 [facility] [address] [id number] [place] [address] Jul, [facility] [address] [id number] [place] [address] Jul, [facility] [address] [id number] [place] [address] Jul, [facility] [address] [id number] [place] [address] 28 Jun, 2011 [facility] [place] [facility] [address] [id number] [place] [address] 2011 [facility] [place] [facility] [address] [id number] [place] [address] 20 Jun, 2011 [facility] [place] [facility] [address] [id number] [place] [address] 19 Jun, 2011 [facility] [place] [facility] [address] [id number] [place] [address] 12 Jun, 2011 [facility] [place] [facility] [address] [id number] [place] [address] Jun, [facility] [place] [facility] [address] [id number] [place] [address] Jun, [facility] [address] [id number] [place] [address]- [address] Jun, [facility] [address] [id number] [place] [address]26 Jun, [facility] [address] [id number] [place] [address] May, [facility] [address] [id number] [place] [address] 39[address] May, [facility] [address] [id number] [place] [address] May, [facility] [address] [id number] [place] [address] 1436 May, [facility] [address] [id number] [place] [address]47 May, [facility] [address] [id number] [place] [address] May, [facility] [address] [id number] [place] [address] May, [facility] [address] [facility] [id number] [place] [address]33 May, [facility] [address] [facility] [id number] [place] [address] Apr, [facility] [place] [facility] [address] [id number] [place] [address] Apr, [facility] [place] [facility] [address] [id number] [place] [address] 2009 Apr, [facility] [place] [facility] [address] [id number] [place] [address] Apr, [facility] [address] [facility] [id number], [place] [address] Apr, [facility] [address] [id number] [place] [address]76 05 Apr, 2011 [facility] [address] [id number] [place] [address] Mar, [facility] [place] [facility] [address] [id number] [place] [address] Mar, [facility] [place] [facility] [address] [id number] [place] [address] Mar, [facility] [address] [id number] [place] [address]- 6344 Mar, [facility] [place] [facility] [address] [id number] [place] [address]- [address]47 15 Mar, 2011 [facility] [address] [id number] [place] [address] Mar, [facility] [place] [facility] [address] [id number] [place] [address] Mar, [facility] [place] [facility] [address] [id number] [place] [address]- 2710 Mar, [facility] [place] [facility] [address] [id number] [place] [address]- [address]41 Mar, [facility] [place] [facility] [address] [id number] [place] [address]- [address]175 Mar, [facility] [place] [facility] [address] [id number] [place] [address]- [address] Mar, [facility] [place] [facility] [address] [id number] [place] [address]- [address] Mar, [facility] [place] [facility] [address] [id number] [place] [address] 8845 Mar, [facility] [place] [facility] [address] [id number] [place] [address] 7068 Feb, [facility] [place] [facility] [address] [id number] [place] [address] Feb, [facility] [place] [facility] [address] [id number] [place] [address] 17 Feb, 2011 [facility] [place] [facility] [address] [id number] [place] [address]- 2992 Feb, [facility] [place] [facility] [address] [id number] [place] [address]- 6958 Feb, [facility] [place] [facility] [address] [id number] [place] [address]- 9804 Feb, [facility] [place] [facility] [address] [id number] [place] [address]- 8590 Feb, [facility] [place] [facility] [address] [id number] [place] [address]- [address]35 Jan, [facility] [place] [facility] [address] [id number] [place] [address]- [address]278 Jan, [facility] [place] [facility] [address] [id number] [place] [address]- 6284 Jan, [facility] [place] [facility] [address] [id number] [place] [address]- 6288 Nov, [facility] [place] [facility] [address] [id number] [place] [address]- 119[address] Mar, [facility] [place] [facility] [address] [id number], [place] [address]- 6932 Mar, [facility] [place] [facility] [address] [id number], [place] [address]- [address] 20 Mar, 2010 [facility] [place] [facility] [address] [id number] [place] [address]- 3806 13 Mar, 2010 [facility] [place] [facility] [address] [id number] [place] [address] 07 Mar, 2010 [facility] [place] [facility] [address] [id number] [place] [address]- 0513 30 Feb, 2010 [facility] [place] [facility] [address] [facility] [id number] [place] [address]- [address]59 30 Feb, 2010 [facility] [address] [facility] [id number] [place] [address]- [address]478 24 Feb, 2010 [facility] [address] [facility] [id number] [place] [address]- [address]276 19 Feb, 2010 [facility] [address] [facility] [id number], [place] [address]- [address] 19 Feb, 2010 [facility] [address] [facility] [id number] [place] [address]- 3882 15 Feb, 2010 IMMUNIZATIONS No Known Immunizations [...] Mastectomy 02/01/2017 Hospitalization History surgeries Hospitalization History [facility] ED 10/06/2017
--- OUTSIDE RECORDS SUMMARY | 2017-12-22 03:35 | XMS REPORT ---
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 [place] [address] [facility] [id number] [place] [address] 2542 Oct, [facility] [place] [id number] [place] [address], [place]- 4583 Sep, [facility] [place] [id number] [address]- 7919 August, [facility] [place] [id number] [address]- 6483 August, [facility] [place] [id number] [address]- 5002 August, [facility] [place] [address] 0230 August, [facility] [place] [address], [place] [address]- 1706 Jul, [facility] [place] [address] [address]- 8528 Jul, [facility] [id number] [address]- 1127 Jun, [facility] [id number] [place] [address]- 0366 Jun, [facility] [address] [facility] [id number] [address]- 2542 Jun, [facility] [place] [address] [address]- 9166 Jun, 2014 [facility] [place] [facility] [address] [id number] [place] [address]- 8553 24 Jun, 2014 [facility] [place] [facility] [address] [id number] [place] [address]- 8930 Jun, [facility] [place] [facility] [address] [id number] [place] [address]- 7509 Jun, [facility] [place] [facility] [address] [id number] [place] [address]- 0736 Jun, [facility] [place] [facility] [address] [id number] [place] [address]- 2115 Jun, [facility] [place] [facility] [address] [id number] [place] [address]- 0219 Jun, [facility] [place] [facility] [address] [id number] [place] [address]- 5629 Jun, [facility] [place] [facility] [address] [id number] [place] [address]- 2931 Jun, [facility] [place] [facility] [address] [id number] [place] [address]- 8567 Jun, [facility] [place] [facility] [address] [id number] [place] [address]- 0144 Jun, [facility] [place] [facility] [address] [id number] [address]- 4692 Jun, [facility] [place] [facility] [address] [id number] [address]- 7184 19 Jun, 2014 [facility] [place] [facility] [address] [id number] [place] [address]- 5578 18 Jun, 2014 [facility] [place] [facility] [address] [id number] [place] [address]- 2064 18 Jun, 2014 [facility] [place] [facility] [address] [id number] [place] [address]- 0796 18 Jun, 2014 [facility] [place] [facility] [address] [id number] [place] [address]- 9834 18 Jun, 2014 [facility] [place] [facility] [address] [id number] [place] [address]- 7145 17 Jun, 2014 [facility] [place] [facility] [address] [id number] [place] [address]- 7876 17 Jun, 2014 [facility] [place] [facility] [address] [id number] [place] [address]- 7066 17 Jun, 2014 [facility] [place] [facility] [address] [id number] [place] [address]- 3720 17 Jun, 2014 [facility] [place] [facility] [address] [id number] [place] [address] 13 Jun, 2014 [facility] [place] [facility] [address] [id number] [place] [address] 13 Jun, 2014 [facility] [place] [facility] [address] [id number] [place] [address] 12 Jun, 2014 [facility] [place] [facility] [address] [id number] [place] [address] 12 Jun, 2014 [facility] [place] [facility] [address] [id number] [place] [address] 10 Jun, 2014 [facility] [place] [facility] [address] [id number] [place] [address] 10 Jun, 2014 [facility] [place] [facility] [address] [id number] [place] [address] 10 Jun, 2014 [facility] [place] [facility] [address] [id number] [place] [address]66 10 Jun, 2014 [facility] [place] [facility] [address] [id number] [place] [address] 06 Jun, 2014 [facility] [place] [facility] [address] [id number] [place] [address] 06 Jun, 2014 [facility] [place] [facility] [address] [id number] [place] [address] Jun, 2014 [facility] [place] [facility] [address] [id number] [place] [address] Jun, [facility] [place] [facility] [address] [id number] [place] [address] Jun, [facility] [place] [facility] [address] [id number] [place] [address] Jun, [facility] [place] [facility] [address] [id number] [place] [address] May, 2014 [facility] [place] [facility] [address] [id number] [place] [address] May, 2014 [facility] [place] [facility] [address] [id number] [place] [address]- [address] May, 2014 [facility] [place] [facility] [address] [id number] [place] [address]65 May, 2014 [facility] [place] [facility] [address] [id number] [place] [address] May, 2014 [facility] [place] [facility] [address] [id number] [place] [address] May, 2014 [facility] [place] [facility] [address] [id number] [place] [address] May, 2014 [facility] [place] [facility] [address] [id number] [place] [address] May, 2014 [facility] [place] [facility] [address] [id number] [place] [address] May, 2014 [facility] [place] [facility] [address] [id number] [place] [address] May, 2014 [facility] [place] [facility] [address] [id number] [place] [address]80 May, 2014 [facility] [place] [facility] [address] [facility] [id number] [place] [address] May, 2014 [facility] [place] [facility] [address] [id number] [place] [address] 05 May, 2014 [facility] [place] [facility] [address] [id number] [place] [address] May, [facility] [place] [facility] [address] [id number] [place] [address] May, [facility] [place] [facility] [address] [id number] [place] [address] May, [facility] [place] [facility] [address] [id number] [place] [address] 39[address] Apr, [facility] [place] [facility] [address] [id number] [place] [address] Apr, [facility] [place] [facility] [address] [id number] [place] [address] Apr, [facility] [place] [facility] [address] [id number] [place] [address] Apr, [facility] [place] [facility] [address] [id number] [place] [address] Apr, [facility] [place] [facility] [address] [id number] [place] [address] Apr, [facility] [place] [facility] [address] [id number] [place] [address] Apr, [facility] [place] [facility] [address] [id number] [place] [address] Apr, [facility] [place] [facility] [address] [address] [id number] [place] [address] Apr, [facility] [place] [facility] [address] [id number] [place] [address] Apr, [facility] [place] [facility] [address] [id number] [place] [address] 3298 Apr, [facility] [place] [facility] [address] [id number] [place] [address] 285[address] Apr, [facility] [place] [facility] [address] [id number] [place] [address] 0295 Apr, [facility] [place] [facility] [address] [id number] [place] [address] 8876 Apr, [facility] [place] [facility] [address] [id number] [place] [address] 7078 Apr, [facility] [place] [facility] [address] [id number] [place] [address] 2041 Mar, [facility] [place] [facility] [address] [id number] [place] [address] 4956 Mar, [facility] [place] [facility] [address] [id number] [place] [address] 6014 Mar, [facility] [place] [facility] [address] [id number] [place] [address] 8429 Mar, [facility] [place] [facility] [address] [id number] [place] [address] 7913 Mar, [facility] [place] [facility] [address] [id number] [place] [address] 7955 Mar, [facility] [place] [facility] [address] [id number] [place] [address]- 7819 15 Mar, 2014 [facility] [place] [facility] [address] [id number] [place] [address]- 9794 15 Mar, 2014 [facility] [place] [facility] [address] [id number], [place] [address] 15 Mar, 2014 [facility] [place] [facility] [address] [id number] [place] [address]- 1466 15 Mar, 2014 [facility] [place] [facility] [address] [id number] [place] [address]- 7142 15 Mar, 2014 [facility] [place] [facility] [address] [id number] [place] [address]- 0671 15 Mar, 2014 [facility] [place] [facility] [address] [id number] [place] [address] 2782 Mar, [facility] [place] [facility] [address] [id number] [place] [address]- 4223 Mar, [facility] [place] [facility] [address] [id number] [place] [address]- 4189 Mar, [facility] [place] [facility] [address] [id number] [place] [address]- 5812 Mar, [facility] [place] [facility] [address] [id number] [place] [address]- 5744 Mar, [facility] [place] [facility] [address] [id number] [place] [address]- 2501 Mar, [facility] [place] [facility] [address] [id number] [place] [address]- 3087 Feb, [facility] [place] [facility] [address] [id number] [place] [address]- 1796 Feb, [facility] [place] [facility] [address] [id number] [place] [address]- 6843 Feb, [facility] [place] [facility] [address] [id number] [place] [address]- 2405 Feb, [facility] [place] [facility] [address] [facility] [id number] [place] [address]- 2716 Feb, [facility] [place] [facility] [address] [id number] [place] [address]- 5403 Feb, [facility] [place] [facility] [address] [id number] [place] [address]- 7635 Feb, [facility] [place] [facility] [address] [id number] [place] [address] Feb, [facility] [place] [facility] [address] [id number] [place] [address]- 7985 Jan, [facility] [place] [facility] [address] [id number] [place] [address]- 4927 Jan, [facility] [place] [facility] [address] [id number] [place] [address]- 8417 Jan, [facility] [place] [facility] [address] [id number] [place] [address]- 0874 Jan, [facility] [place] [facility] [address] [id number] [place] [address]- 4798 Jan, [facility] [place] [facility] [address] [id number] [place] [address]- 4132 Jan, [facility] [place] [facility] [address] [id number] [place] [address]- 2155 Jan, [facility] [place] [facility] [address] [id number] [place] [address]- 7451 Jan, [facility] [place] [facility] [address] [id number] [place] [address]- 9641 Jan, [facility] [place] [facility] [address] [id number] [place] [address]- 0637 Jan, [facility] [place] [facility] [address] [id number] [place] [address]- 4525 Jan, [facility] [place] [facility] [address] [id number] [place] [address]- 0065 Jan, [facility] [place] [facility] [address] [id number] [place] [address]- 2020 Jan, [facility] [place] [facility] [address] [id number], [place] [address]- 7325 Jan, [facility] [place] [facility] [address] [id number] [place] [address]- 7100 Jan, [facility] [place] [facility] [address] [id number] [place] [address]- 6665 16 Jan, 2014 [facility] [place] [facility] [address] [id number], [place] [address]- 8807 Jan, [facility] [place] [facility] [address] [id number], [place] [address]- 5658 13 Jan, 2014 [facility] [place] [facility] [address] [id number] [place] [address] 2546 29 Sep, 2013 [facility] [place] [facility] [address] [id number] [place] [address] 2546 29 Dec, 2013 [facility] [place] [facility] [address] [id number] [place] [address] 2546 26 Dec, 2013 [facility] [place] [facility] [address] [id number] [place] [address] 2546 26 Dec, 2013 [facility] [place] [facility] [address] [id number] [place] [address] 2544 26 Dec, 2013 [facility] [place] [facility] [address] [id number] [place] [address]- 1030 26 Dec, 2013 [facility] [place] [facility] [address] [id number] [place] [address]- 8504 23 Dec, 2013 [facility] [place] [facility] [address] [id number] [place] [address]- 7382 23 Dec, 2013 [facility] [place] [facility] [address] [id number] [place] [address] 2541 22 Dec, 2013 [facility] [place] [facility] [address] [id number] [place] [address] 2544 22 Dec, 2013 [facility] [place] [facility] [address] [id number], [place] [address] 2540 16 Dec, 2013 [facility] [place] [facility] [address] [id number], [place] [address]- 2546 16 Dec, 2013 [facility] [place] [facility] [address] [id number], [place] [address] 2546 15 Dec, 2013 [facility] [place] [facility] [address] [id number] [place] [address] 2546 15 Dec, 2013 [facility] [place] [facility] [address] [id number] [place] [address]- 2548 09 Dec, 2013 [facility] [place] [facility] [address] [id number] [place] [address]- 7121 Dec, [facility] [place] [facility] [address] [id number] [place] [address]- 3164 Dec, [facility] [place] [facility] [address] [id number] [place] [address]- 9032 Nov, [facility] [place] [facility] [address] [id number] [place] [address]- 6504 Nov, [facility] [place] [facility] [address] [id number] [place] [address]- 4603 Nov, [facility] [place] [facility] [address] [id number] [place] [address]- 2163 Nov, [facility] [place] [facility] [address] [id number] [place] [address]- 8643 Nov, [facility] [place] [facility] [address] [id number] [place] [address]- 0250 Nov, [facility] [place] [facility] [address] [id number] [place] [address]- 6937 Nov, [facility] [place] [facility] [address] [id number] [place] [address]- 0264 Nov, [facility] [place] [facility] [address] [id number] [place] [address]- 3045 Nov, [facility] [place] [facility] [address] [id number] [place] [address]- 1922 Nov, [facility] [place] [facility] [address] [id number] [place] [address]- 1328 Nov, [facility] [place] [facility] [address] [id number] [place] [address]- 1274 Nov, [facility] [place] [facility] [address] [id number] [place] [address]- 6478 Nov, [facility] [place] [facility] [address] [id number] [place] [address]- 9932 Nov, [facility] [place] [facility] [address] [id number] [place] [address]- 4741 Nov, [facility] [place] [facility] [address] [id number] [place] [address]- 4992 Nov, [facility] [place] [facility] [address] [id number] [place] [address]- 4072 Nov, [facility] [place] [facility] [address] [id number] [place] [address]- 3015 Nov, [facility] [place] [facility] [address] [id number] [place] [address]- 3696 Nov, [facility] [place] [facility] [address] [id number] [place] [address]- 3385 Nov, [facility] [place] [facility] [address] [id number] [place] [address]- 2726 Nov, [facility] [place] [facility] [address] [id number] [place] [address]- 1564 Oct, [facility] [place] [facility] [address] [id number] [place] [address]- 0890 Oct, [facility] [place] [facility] [address] [id number] [place] [address]- 8988 Oct, [facility] [place] [facility] [address] [id number] [place] [address]- 0689 Oct, [facility] [place] [facility] [address] [id number] [place] [address]- 9811 Oct, [facility] [place] [facility] [address] [id number] [place] [address]- 6379 Oct, [facility] [place] [facility] [address] [id number] [place] [address]- 1268 Oct, [facility] [place] [facility] [address] [id number] [place] [address]- 8164 Oct, [facility] [place] [facility] [address] [id number] [place] [address]- 6531 15 Oct, 2013 [facility] [place] [facility] [address] [id number] [place] [address]- 9536 14 Oct, 2013 [facility] [place] [facility] [address] [id number] [place] [address]- 4033 Oct, [facility] [place] [facility] [address] [id number] [place] [address]- 3418 Oct, [facility] [place] [facility] [address] [id number] [place] [address]- 2586 Oct, [facility] [place] [facility] [address] [id number] [place] [address]- 3654 Oct, [facility] [place] [facility] [address] [id number] [place] [address]- 2187 Oct, [facility] [place] [facility] [address] [id number] [place] [address]- 7792 Sep, [facility] [place] [facility] [address] [id number] [place] [address]- 2897 Sep, [facility] [place] [facility] [address] [id number] [place] [address]- 5068 Sep, [facility] [place] [facility] [address] [id number] [place] [address]- 9402 Sep, [facility] [place] [facility] [address] [id number] [place] [address]- 3431 Sep, [facility] [place] [facility] [address] [id number] [place] [address]- 2294 Sep, [facility] [place] [facility] [address] [id number] [place] [address]- 9456 Sep, [facility] [place] [facility] [address] [id number] [place] [address]- 7616 Sep, [facility] [place] [facility] [address] [id number] [place] [address]- 6776 17 Sep, 2013 [facility] [place] [facility] [address] [id number] [place] [address]- 1499 Sep, [facility] [place] [facility] [address] [id number] [place] [address]- 4825 Sep, [facility] [place] [facility] [address] [id number] [place] [address]- 1271 Sep, [facility] [place] [facility] [address] [id number] [place] [address]- 2118 Sep, [facility] [place] [facility] [address] [id number] [place] [address]- 6113 Sep, [facility] [place] [facility] [address] [id number] [place] [address]- 0947 Sep, [facility] [place] [facility] [address] [id number] [place] [address]- 1825 Sep, [facility] [place] [facility] [address] [id number] [place] [address]- 2680 Sep, [facility] [place] [facility] [address] [id number] [place] [address]- 6833 Sep, [facility] [place] [facility] [address] [id number] [place] [address]- 2658 Sep, [facility] [place] [facility] [address] [id number] [place] [address]- 7245 Sep, [facility] [place] [facility] [address] [id number] [place] [address]- 1585 Sep, [facility] [place] [facility] [address] [id number] [place] [address]- 0483 Sep, [facility] [place] [facility] [address] [id number] [place] [address]- 0324 August, [facility] [place] [facility] [address] [id number] [place] [address]- 6652 August, [facility] [place] [facility] [address] [id number] [place] [address]- 2795 August, [facility] [address] [id number] [place] [address]- 3944 August, [facility] [place] [facility] [address] [id number] [place] [address]- 0472 August, [facility] [place] [facility] [address] [id number] [place] [address]- 1222 August, [facility] [place] [facility] [address] [id number] [place] [address]- 9484 August, [facility] [place] [facility] [address] [id number] [place] [address]- 8770 August, [facility] [place] [facility] [address] [id number] [place] [address]- 1730 August, [facility] [place] [facility] [address] [id number] [place] [address]- 3914 August, [facility] [place] [facility] [address] [id number] [place] [address]- 1550 August, [facility] [place] [facility] [address] [id number] [place] [address]- 3420 August, [facility] [place] [facility] [address] [id number] [place] [address]- 0899 August, [facility] [place] [facility] [address] [id number] [place] [address]- 3838 August, [facility] [place] [facility] [address] [id number] [place] [address]- 5967 August, [facility] [place] [facility] [address] [id number] [place] [address]- 8465 August, [facility] [place] [facility] [address] [id number] [place] [address]- 0962 August, [facility] [place] [facility] [address] [id number] [place] [address]- 4650 August, [facility] [place] [facility] [address] [id number] [place] [address]- 7377 Jul, [facility] [place] [facility] [address] [id number] [place] [address]- 0609 Jul, [facility] [place] [facility] [address] [id number] [place] [address]- 6543 Jul, [facility] [place] [facility] [address] [id number] [place] [address]- 1406 Jul, [facility] [place] [facility] [address] [id number] [place] [address]- 6049 Jul, [facility] [place] [facility] [address] [id number] [place] [address]- 8479 Jul, [facility] [place] [facility] [address] [id number] [place] [address]- 4855 Jul, [facility] [place] [facility] [address] [id number] [place] [address]- 8923 Jul, [facility] [place] [facility] [address] [id number] [place] [address]- 3780 Jul, [facility] [place] [facility] [address] [id number] [place] [address]- 4848 Jul, [facility] [place] [facility] [address] [id number] [place] [address]- 0343 Jul, [facility] [place] [facility] [address] [id number] [place] [address]- 1501 Jul, [facility] [place] [facility] [address] [id number] [place] [address]- 6745 Jul, [facility] [place] [facility] [address] [id number] [place] [address]- 5064 Jul, [facility] [place] [facility] [address] [id number] [place] [address]- 3140 Jul, [facility] [place] [facility] [address] [id number] [place] [address]- 3131 Jul, [facility] [place] [facility] [address] [id number] [place] [address]- 2515 17 Jul, 2013 [facility] [place] [facility] [address] [id number] [place] [address]- 2041 16 Jul, 2013 [facility] [place] [facility] [address] [id number] [place] [address]- 1567 16 Jul, 2013 [facility] [place] [facility] [address] [id number] [place] [address]- 7602 15 Jul, 2013 [facility] [place] [facility] [address] [id number] [place] [address]- 4612 15 Jul, 2013 [facility] [place] [facility] [address] [id number] [place] [address]- 7471 14 Jul, 2013 [facility] [place] [facility] [address] [id number] [place] [address]- 7205 Jul, [facility] [place] [facility] [address] [id number] [place] [address]- 3706 Jul, [facility] [place] [facility] [address] [id number] [place] [address]- 0185 Jul, [facility] [place] [facility] [address] [id number] [place] [address]- 0876 Jul, [facility] [place] [facility] [address] [id number] [place] [address]- 5828 Jul, [facility] [place] [facility] [address] [id number] [place] [address]- 6048 Jul, [facility] [place] [facility] [address] [id number] [place] [address]- 8960 Jul, [facility] [place] [facility] [address] [id number] [place] [address]- 3798 Jun, [facility] [place] [facility] [address] [id number] [place] [address]- 1752 Jun, [facility] [place] [facility] [address] [id number] [place] [address]- 5355 17 Jun, 2013 [facility] [place] [facility] [address] [id number] [place] [address]- 4011 17 Jun, 2013 [facility] [place] [facility] [address] [id number] [place] [address]- 2182 Jun, [facility] [place] [facility] [address] [id number] [place] [address]- 4131 Jun, [facility] [place] [facility] [address] [id number] [place] [address]- 1503 Jun, [facility] [place] [facility] [address] [id number] [place] [address]- 5563 Jun, [facility] [place] [facility] [address] [id number] [place] [address]- 9383 Jun, [facility] [place] [facility] [address] [facility] [id number] [place] [address]- 7575 Jun, [facility] [place] [facility] [address] [id number] [place] [address]- 3470 Jun, [facility] [place] [facility] [address] [id number] [place] [address]- 7870 Jun, [facility] [place] [facility] [address] [facility] [id number] [place] [address]- 0431 May, [facility] [place] [facility] [address] [id number] [place] [address]- 4344 May, [facility] [place] [facility] [address] [id number] [place] [address]- 4656 May, [facility] [place] [facility] [address] [id number] [place] [address]- 5803 May, [facility] [place] [facility] [address] [id number] [place] [address]- 0390 May, [facility] [place] [facility] [address] [facility] [id number] [place] [address]- 4047 May, [facility] [place] [facility] [address] [id number] [place] [address]- 4057 May, [facility] [place] [facility] [address] [id number] [place] [address] May, [facility] [place] [facility] [address] [id number] [place] [address] May, [facility] [place] [facility] [address] [id number] [place] [address] May, [facility] [place] [facility] [address] [id number] [place] [address] Apr, [facility] [place] [facility] [address] [id number] [place] [address] Apr, [facility] [place] [facility] [address] [id number] [place] [address] Apr, [facility] [place] [facility] [address] [id number] [place] [address] Apr, [facility] [place] [facility] [address] [id number] [place] [address] Apr, [facility] [place] [facility] [address] [id number] [place] [address]- [address] Apr, [facility] [place] [facility] [address] [id number] [place] [address] Apr, [facility] [place] [facility] [address] [id number] [place] [address] Apr, [facility] [place] [facility] [address] [id number] [place] [address]- [address] Apr, [facility] [place] [facility] [address] [id number] [place] [address]- [address] Apr, [facility] [place] [facility] [address] [id number] [place] [address] Mar, [facility] [place] [facility] [address] [id number] [address] Mar, [facility] [place] [facility] [address] [id number] [place] [address] Mar, [facility] [place] [facility] [address] [id number] [place] [address] Mar, [facility] [place] [facility] [address] [id number] [place] [address] Mar, [facility] [place] [facility] [address] [id number] [place] [address]69 Mar, [facility] [place] [facility] [address] [id number] [place] [address] Feb, [facility] [place] [facility] [address] [id number] [place] [address]- [address] Feb, [facility] [place] [facility] [address] [facility] [id number] [place] [address]- [address] Feb, [facility] [place] [facility] [address] [id number] [place] [address] Jan, [facility] [place] [facility] [address] [facility] [id number] [place] [address]- [address] 30 Jan, 2013 [facility] [place] [facility] [address] [facility] [id number] [place] [address]- [address] Jan, [facility] [place] [facility] [address] [id number], [place] [address] 28 Jan, 2013 [facility] [place] [facility] [address] [id number], [place] [address] 15 Jan, 2013 [facility] [place] [facility] [address] [id number] [place] [address]- [address] 15 Jan, 2013 [facility] [place] [facility] [address] [facility] [id number], [place] [address] Jan, [facility] [place] [facility] [address] [facility] [id number], [place] [address] 11 Jan, 2013 [facility] [place] [facility] [address] [id number] [place] [address]- [address] Jan, [facility] [place] [facility] [address] [id number] [place] [address]- [address] Jan, [facility] [place] [facility] [address] [id number] [place] [address]- [address] 30 Dec, 2012 [facility] [place] [facility] [address] [id number] [place] [address]- [address] 25 Dec, 2012 [facility] [place] [facility] [address] [id number] [place] [address]- [address]798 11 Dec, 2012 [facility] [place] [facility] [address] [id number] [place] [address]- [address] Dec, 2012 [facility] [place] [facility] [address] [id number] [place] [address]- [address] 05 Dec, 2012 [facility] [place] [facility] [address] [id number] [place] [address]- 59[address] Dec, 2012 [facility] [place] [facility] [address] [id number] [place] [address]- [address]48 Nov, [facility] [place] [facility] [address] [id number] [place] [address] Nov, [facility] [place] [facility] [address] [id number] [place] [address]- 132[address] Nov, [facility] [place] [facility] [address] [id number] [place] [address]- 69[address] Nov, [facility] [place] [facility] [address] [id number] [place] [address] 2547 Nov, [facility] [place] [facility] [address] [id number] [place] [address]- 7716 Nov, [facility] [place] [facility] [address] [id number] [place] [address]- [address] Nov, [facility] [place] [facility] [address] [id number] [place] [address]- 7961 Nov, [facility] [address] [id number] [place] [address]- [address] Nov, [facility] [place] [facility] [address] [id number] [place] [address]- 5910 Nov, [facility] [place] [facility] [address] [id number] [place] [address]- 49[address] Nov, [facility] [place] [facility] [address] [id number] [place] [address]- 7001 Nov, [facility] [place] [facility] [address] [id number] [place] [address]- [address] Oct, [facility] [place] [facility] [address] [id number] [place] [address]- 8378 Oct, [facility] [place] [facility] [address] [id number] [place] [address]- 2975 Oct, [facility] [place] [facility] [address] [id number] [place] [address]- [address]284 Sep, [facility] [place] [facility] [address] [id number] [place] [address]- 96[address] Sep, [facility] [place] [facility] [address] [id number] [place] [address]- 95[address] Sep, [facility] [place] [facility] [address] [id number] [place] [address]- 1405 August, [facility] [place] [facility] [address] [id number] [place] [address]- 60[address] August, [facility] [place] [facility] [address] [id number] [place] [address]- 1761 August, [facility] [place] [facility] [address] [id number] [place] [address]- [address] August, [facility] [place] [facility] [address] [id number] [place] [address]- 8166 August, [facility] [place] [facility] [address] [id number] [place] [address]- 95[address] August, [facility] [address] [id number] [place] [address]- [address] 30 Jul, 2012 [facility] [place] [facility] [address] [id number] [place] [address]- 1426 15 Jul, 2012 [facility] [address] [id number] [place] [address]- 89[address] Jul, [facility] [place] [facility] [address] [id number] [place] [address]- 8736 Jul, [facility] [address] [id number] [place] [address]- 1342 Jul, [facility] [place] [facility] [address] [id number] [place] [address]- 5968 Jul, [facility] [address] [id number] [place] [address]- [address] 2012 [facility] [address] [id number] [place] [address]- 8178 20 Jun, 2012 [facility] [address] [id number] [place] [address]- 3169 18 Jun, 2012 [facility] [address] [id number] [place] [address] 14 Jun, 2012 [facility] [place] [facility] [address] [id number] [place] [address] 04 Jun, 2012 [facility] [place] [facility] [address] [id number] [place] [address] May, [facility] [place] [facility] [address] [id number] [place] [address] 12 May, 2012 [facility] [place] [facility] [address] [id number] [place] [address] 9761 May, [facility] [place] [facility] [address] [id number] [place] [address] 08 May, 2012 [facility] [address] [id number] [place] [address] Apr, [facility] [place] [facility] [address] [id number] [place] [address]- [address] Apr, [facility] [place] [facility] [address] [id number] [place] [address]- 3993 Apr, [facility] [place] [facility] [address] [id number] [place] [address] Mar, [facility] [place] [facility] [address] [id number] [place] [address]- 97[address] Mar, [facility] [place] [facility] [address] [id number] [place] [address] 9996 Mar, [facility] [place] [facility] [address] [id number] [place] [address]- 8635 Mar, [facility] [place] [facility] [address] [id number] [place] [address] 8[address] Mar, [facility] [place] [facility] [address] [id number] [place] [address]- 5353 Mar, [facility] [place] [facility] [address] [id number] [place] [address] 3209 Mar, [facility] [place] [facility] [address] [id number] [place] [address]- 8146 Mar, [facility] [place] [facility] [address] [id number], [place] [address] Feb, [facility] [place] [facility] [address] [id number] [place] [address]- 1196 Feb, [facility] [place] [facility] [address] [id number] [place] [address]- 6040 Feb, [facility] [place] [facility] [address] [id number] [place] [address]- 8420 Feb, [facility] [place] [facility] [address] [id number], [place] [address] Feb, [facility] [place] [facility] [address] [id number] [place] [address]- 1281 Feb, [facility] [place] [facility] [address] [id number] [place] [address]- 6030 Feb, [facility] [place] [facility] [address] [facility] [id number] [place] [address]- 4861 Feb, [facility] [place] [facility] [address] [id number] [place] [address]- 5660 Feb, [facility] [place] [facility] [address] [id number] [place] [address]- 5306 Feb, [facility] [place] [facility] [address] [facility] [id number] [place] [address]- 8364 Feb, [facility] [place] [facility] [address] [id number] [place] [address]- 6[address] Feb, [facility] [place] [facility] [address] [facility] [id number] [place] [address]- 7857 Feb, [facility] [place] [facility] [address] [facility] [id number] [place] [address]- 6717 Feb, [facility] [place] [facility] [address] [facility] [id number] [place] [address]- 3271 Feb, [facility] [place] [facility] [address] [facility] [id number], [place] [address]- 0271 Feb, [facility] [place] [facility] [address] [facility] [id number], [place] [address]- 3471 Feb, [facility] [place] [facility] [address] [facility] [id number], [place] [address]- 2[address] Feb, [facility] [place] [facility] [address] [facility] [id number] [place] [address]- 4596 Jan, [facility] [place] [facility] [address] [facility] [id number], [place] [address] Jan, [facility] [place] [facility] [address] [id number] [place] [address]- 6329 22 Jan, 2011 [facility] [place] [facility] [address] [id number] [place] [address]- 8543 20 Jan, 2012 [facility] [place] [facility] [address] [id number] [place] [address]- 5165 20 Jan, 2012 [facility] [place] [facility] [address] [id number] [place] [address]- 4906 19 Jan, 2012 [facility] [place] [facility] [address] [id number] [place] [address]- 6977 18 Jan, 2012 [facility] [place] [facility] [address] [id number] [place] [address]- 8964 18 Jan, 2012 [facility] [place] [facility] [address] [id number] [place] [address]- 0188 15 Jan, 2012 [facility] [place] [facility] [address] [id number] [place] [address]- 1191 15 Jan, 2012 [facility] [place] [facility] [address] [id number] [place] [address]- 2687 11 Jan, 2012 [facility] [place] [facility] [address] [id number] [place] [address]- 6910 11 Jan, 2012 [facility] [place] [facility] [address] [facility] [id number] [place] [address]- 9895 10 Jan, 2012 [facility] [place] [facility] [address] [id number] [place] [address]- 5401 09 Jan, 2012 [facility] [place] [facility] [address] [id number] [place] [address]- 6112 02 Jan, 2012 [facility] [place] [facility] [address] [id number] [place] [address]- 0566 29 Dec, 2011 [facility] [place] [facility] [address] [id number] [place] [address]- 0376 28 Dec, 2011 [facility] [place] [facility] [address] [id number] [place] [address]- 3278 Dec, [facility] [place] [facility] [address] [id number] [place] [address]- 9469 Dec, [facility] [place] [facility] [address] [id number] [place] [address]- 0723 Nov, [facility] [place] [facility] [address] [id number] [place] [address]- 0989 Nov, [facility] [place] [facility] [address] [id number] [place] [address]- 5229 Nov, [facility] [place] [facility] [address] [id number] [place] [address]- 3923 Nov, [facility] [place] [facility] [address] [id number] [place] [address]- 6787 Nov, [facility] [place] [facility] [address] [id number] [place] [address]- 0103 Nov, [facility] [place] [facility] [address] [id number] [place] [address]- 8154 Nov, [facility] [place] [facility] [address] [id number] [place] [address]- 4014 Nov, [facility] [place] [facility] [address] [id number] [place] [address]- 3342 Nov, [facility] [place] [facility] [address] [id number] [place] [address]- 3355 Nov, [facility] [place] [facility] [address] [id number] [place] [address]- 8287 Nov, [facility] [place] [facility] [address] [id number] [place] [address]- 2097 Oct, [facility] [place] [facility] [address] [id number] [place] [address]- 3518 Oct, [facility] [place] [facility] [address] [id number] [place] [address]- 4699 Oct, [facility] [place] [facility] [address] [id number] [place] [address]- 5705 Oct, [facility] [place] [facility] [address] [id number] [place] [address]- 2349 Oct, [facility] [place] [facility] [address] [id number] [place] [address]- 3646 Oct, [facility] [place] [facility] [address] [id number] [place] [address]- 1466 Oct, [facility] [place] [facility] [address] [id number] [place] [address]- 9664 Oct, [facility] [place] [facility] [address] [id number] [place] [address]- 7281 Sep, [facility] [place] [facility] [address] [id number] [place] [address]- 3084 Sep, [facility] [place] [facility] [address] [id number] [place] [address]- 4240 Sep, [facility] [place] [facility] [address] [id number] [place] [address]- 9114 Sep, [facility] [place] [facility] [address] [id number] [place] [address]- 4552 Sep, [facility] [place] [facility] [address] [id number] [place] [address]- 8505 Sep, [facility] [place] [facility] [address] [id number] [place] [address]- 4333 Sep, [facility] [place] [facility] [address] [id number] [place] [address]- 9780 August, [facility] [place] [facility] [address] [id number] [place] [address]- 9413 August, [facility] [place] [facility] [address] [id number] [place] [address]- 3446 August, [facility] [place] [facility] [address] [id number] [place] [address]- 7092 August, [facility] [place] [facility] [address] [id number] [place] [address]- 8828 August, [facility] [address] [id number] [place] [address]- 0757 August, [facility] [place] [facility] [address] [id number] [place] [address]- 5356 August, [facility] [address] [id number] [place] [address]- 1472 August, [facility] [address] [id number] [place] [address]- 3028 Jul, [facility] [place] [facility] [address] [id number] [place] [address]- 6786 17 Jul, 2011 [facility] [address] [id number] [place] [address]- 3865 Jul, [facility] [address] [id number] [place] [address]- 5675 Jul, [facility] [address] [id number] [place] [address]- 1924 Jul, [facility] [address] [id number] [place] [address]- 2947 28 Jun, 2011 [facility] [place] [facility] [address] [id number] [place] [address]- 0121 2011 [facility] [place] [facility] [address] [id number] [place] [address]- 0616 20 Jun, 2011 [facility] [place] [facility] [address] [id number] [place] [address]- 4232 19 Jun, 2011 [facility] [place] [facility] [address] [id number] [place] [address]- 2082 12 [address], [address] [facility] [place] [facility] [address] [id number] [place] [address]- 9404 Jun, [facility] [place] [facility] [address] [id number] [place] [address]- 8076 Jun, [facility] [address] [id number] [place] [address]- 2579 Jun, [facility] [address] [id number] [place] [address]- 0996 Jun, [facility] [address] [id number] [place] [address]- 0916 May, [facility] [address] [id number] [place] [address]- 2727 May, [facility] [address] [id number] [place] [address]- 9976 May, [facility] [address] [id number] [place] [address]- 7626 May, [facility] [address] [id number] [place] [address]- 5637 May, [facility] [address] [id number] [place] [address]- 6948 May, [facility] [address] [id number] [place] [address]- 2375 May, [facility] [address] [facility] [id number] [place] [address]- 1901 May, [facility] [address] [facility] [id number] [place] [address]- 1656 Apr, [facility] [place] [facility] [address] [id number] [place] [address]- 6520 Apr, [facility] [place] [facility] [address] [id number] [place] [address]- 7547 Apr, [facility] [place] [facility] [address] [id number] [place] [address]- 6176 Apr, [facility] [address] [facility] [id number], [place] [address]- 2720 Apr, [facility] [address] [id number] [place] [address]- 4141 05 Apr, 2011 [facility] [address] [id number] [place] [address]- 9830 Mar, [facility] [place] [facility] [address] [id number] [place] [address]- 7362 Mar, [facility] [place] [facility] [address] [id number] [place] [address]- 1528 Mar, [facility] [address] [id number] [place] [address]- 2528 Mar, [facility] [place] [facility] [address] [id number] [place] [address]- 4678 15 Mar, 2011 [facility] [address] [id number] [place] [address]- 1071 Mar, [facility] [place] [facility] [address] [id number] [place] [address]- 4846 Mar, [facility] [place] [facility] [address] [id number] [place] [address]- 2559 Mar, [facility] [place] [facility] [address] [id number] [place] [address]- 6982 Mar, [facility] [place] [facility] [address] [id number] [place] [address]- 2529 Mar, [facility] [place] [facility] [address] [id number] [place] [address]- 0072 Mar, [facility] [place] [facility] [address] [id number] [place] [address]- 8564 Mar, [facility] [place] [facility] [address] [id number] [place] [address]- 3849 Mar, [facility] [place] [facility] [address] [id number] [place] [address]- 2440 Feb, [facility] [place] [facility] [address] [id number] [place] [address]- 2376 Feb, [facility] [place] [facility] [address] [id number] [place] [address] 17 Feb, 2011 [facility] [place] [facility] [address] [id number] [place] [address]- 7456 Feb, [facility] [place] [facility] [address] [id number] [place] [address]- 1350 Feb, [facility] [place] [facility] [address] [id number] [place] [address]- 7323 Feb, [facility] [place] [facility] [address] [id number] [place] [address]- 5822 Feb, [facility] [place] [facility] [address] [id number] [place] [address]- 6345 Jan, [facility] [place] [facility] [address] [id number] [place] [address]- 9834 Jan, [facility] [place] [facility] [address] [id number] [place] [address]- 9452 Jan, [facility] [place] [facility] [address] [id number] [place] [address]- 1707 Nov, [facility] [place] [facility] [address] [id number] [place] [address]- 0039 Mar, [facility] [place] [facility] [address] [id number], [place] [address]- 6378 Mar, [facility] [place] [facility] [address] [id number], [place] [address]- 9520 20 Mar, 2010 [facility] [place] [facility] [address] [id number] [place] [address]- 8523 13 Mar, 2010 [facility] [place] [facility] [address] [id number] [place] [address] 07 Mar, 2010 [facility] [place] [facility] [address] [id number] [place] [address]- 3468 30 Feb, 2010 [facility] [place] [facility] [address] [facility] [id number] [place] [address]- 4527 30 Feb, 2010 [facility] [place] [address] [facility] [id number] [place] [address]- 5730 24 Feb, 2010 [facility] [place] [address] [facility] [id number] [place] [address]- 8686 19 Feb, 2010 [facility] [place] [address] [facility] [id number], [place] [address]- 4541 19 Feb, 2010 [facility] [place] [address] [facility] [id number] [place] [address]- 6017 15 Feb, 2010 IMMUNIZATIONS No Known Immunizations SOCIAL HISTORY Never Assessed REASON FOR VISIT Returned call PLAN OF CARE VITAL SIGNS MEDICATIONS [...] Mastectomy 02/01/2017 Hospitalization History surgeries Hospitalization History [facility] ED 10/06/2017
--- OUTSIDE RECORDS SUMMARY | 2017-12-22 03:36 | XMS REPORT ---
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 9482 18 Jun, 2014 [facility] [place] [facility] [address] [id number] [place] [address]- 4998 18 Jun, 2014 [facility] [place] [facility] [address] [id number] [place] [address]- 4755 18 Jun, 2014 [facility] [place] [facility] [address] [id number] [place] [address]- 6779 17 Jun, 2014 [facility] [place] [facility] [address] [id number] [place] [address]- 0696 17 Jun, 2014 [facility] [place] [facility] [address] [id number] [place] [address]- 0174 17 Jun, 2014 [facility] [place] [facility] [address] [id number] [place] [address]- 3145 17 Jun, 2014 [facility] [place] [facility] [address] [id number] [place] [address]- 4425 13 Jun, 2014 [facility] [place] [facility] [address] [id number] [place] [address]- 0472 13 Jun, 2014 [facility] [place] [facility] [address] [id number] [place] [address]- 1561 12 Jun, 2014 [facility] [place] [facility] [address] [id number] [place] [address]- 0667 12 Jun, 2014 [facility] [place] [facility] [address] [id number] [place] [address]- 2206 10 Jun, 2014 [facility] [place] [facility] [address] [id number] [place] [address]- 2797 10 Jun, 2014 [facility] [place] [facility] [address] [id number] [place] [address]- 4291 10 Jun, 2014 [facility] [place] [facility] [address] [id number] [place] [address]- 2662 10 Jun, 2014 [facility] [place] [facility] [address] [id number] [place] [address]- 3950 06 Jun, 2014 [facility] [place] [facility] [address] [id number] [place] [address]- 3780 06 Jun, 2014 [facility] [place] [facility] [address] [id number] [place] [address]- 6278 Jun, 2014 [facility] [place] [facility] [address] [id number] [place] [address]- 4769 Jun, [facility] [place] [facility] [address] [id number] [place] [address]- 8558 Jun, [facility] [place] [facility] [address] [id number] [place] [address]- 1308 Jun, [facility] [place] [facility] [address] [id number] [place] [address]- 7992 May, 2014 [facility] [place] [facility] [address] [id number] [place] [address]- 7065 May, 2014 [facility] [place] [facility] [address] [id number] [place] [address]- 1478 May, 2014 [facility] [place] [facility] [address] [id number] [place] [address]- 4152 May, 2014 [facility] [place] [facility] [address] [id number] [place] [address]- 0840 May, 2014 [facility] [place] [facility] [address] [id number] [place] [address]- 9196 May, 2014 [facility] [place] [facility] [address] [id number] [place] [address]- 1736 May, 2014 [facility] [place] [facility] [address] [id number] [place] [address]- 4841 May, 2014 [facility] [place] [facility] [address] [id number] [place] [address]- 5651 May, 2014 [facility] [place] [facility] [address] [id number] [place] [address]- 2604 May, 2014 [facility] [place] [facility] [address] [id number] [place] [address]- 2979 May, 2014 [facility] [place] [facility] [address] [facility] [id number] [place] [address]- 1440 May, 2014 [facility] [place] [facility] [address] [id number] [place] [address]- 9841 05 May, 2014 [facility] [place] [facility] [address] [id number] [place] [address]- 3589 May, [facility] [place] [facility] [address] [id number] [place] [address]- 5756 May, [facility] [place] [facility] [address] [id number] [place] [address]- 1231 May, [facility] [place] [facility] [address] [id number] [place] [address]- 4914 Apr, [facility] [place] [facility] [address] [id number] [place] [address]- 7339 Apr, [facility] [place] [facility] [address] [id number] [place] [address]- 7099 Apr, [facility] [place] [facility] [address] [id number] [place] [address]- 7901 Apr, [facility] [place] [facility] [address] [id number] [place] [address]- 7946 Apr, [facility] [place] [facility] [address] [id number] [place] [address]- 2880 Apr, [facility] [place] [facility] [address] [id number] [place] [address]- 0636 Apr, [facility] [place] [facility] [address] [id number] [place] [address]- 0866 Apr, [facility] [place] [facility] [address] [id number] [place] [address]- 7941 Apr, [facility] [place] [facility] [address] [id number] [place] [address]- 6470 Apr, [facility] [place] [facility] [address] [id number] [place] [address]- 3031 Apr, [facility] [place] [facility] [address] [id number] [place] [address]- 2369 Apr, [facility] [place] [facility] [address] [id number] [place] [address]- 0283 Apr, [facility] [place] [facility] [address] [id number] [place] [address]- 0356 Apr, [facility] [place] [facility] [address] [id number] [place] [address]- 6648 Apr, [facility] [place] [facility] [address] [id number] [place] [address]- 1114 Mar, [facility] [place] [facility] [address] [id number] [place] [address]- 0739 Mar, [facility] [place] [facility] [address] [id number] [place] [address]- 6531 Mar, [facility] [place] [facility] [address] [id number] [place] [address]- 5872 Mar, [facility] [place] [facility] [address] [id number] [place] [address]- 5880 Mar, [facility] [place] [facility] [address] [id number] [place] [address]- 2211 Mar, [facility] [place] [facility] [address] [id number] [place] [address]- 7180 15 Mar, 2014 [facility] [place] [facility] [address] [id number] [place] [address]- 8537 15 Mar, 2014 [facility] [place] [facility] [address] [id number], [place] [address]- 3354 15 Mar, 2014 [facility] [place] [facility] [address] [id number] [place] [address]- 3746 15 Mar, 2014 [facility] [place] [facility] [address] [id number] [place] [address]- 3793 15 Mar, 2014 [facility] [place] [facility] [address] [id number] [place] [address] 15 Mar, 2014 [facility] [place] [facility] [address] [id number] [place] [address] Mar, [facility] [place] [facility] [address] [id number] [place] [address] Mar, [facility] [place] [facility] [address] [id number] [place] [address] Mar, [facility] [place] [facility] [address] [id number] [place] [address] Mar, [facility] [place] [facility] [address] [id number] [place] [address] Mar, [facility] [place] [facility] [address] [id number] [place] [address] Mar, [facility] [place] [facility] [address] [id number] [place] [address] Feb, [facility] [place] [facility] [address] [id number] [place] [address] Feb, [facility] [place] [facility] [address] [id number] [place] [address] Feb, [facility] [place] [facility] [address] [id number] [place] [address] Feb, [facility] [place] [facility] [address] [facility] [id number] [place] [address]- [address] Feb, [facility] [place] [facility] [address] [id number] [place] [address] Feb, [facility] [place] [facility] [address] [id number] [place] [address] Feb, [facility] [place] [facility] [address] [id number] [place] [address] Feb, [facility] [place] [facility] [address] [id number] [place] [address] Jan, [facility] [place] [facility] [address] [id number] [place] [address] Jan, [facility] [place] [facility] [address] [id number] [place] [address]- [address] Jan, [facility] [place] [facility] [address] [id number] [place] [address] 2010 Jan, [facility] [place] [facility] [address] [id number] [place] [address] Jan, [facility] [place] [facility] [address] [id number] [place] [address] Jan, [facility] [place] [facility] [address] [id number] [place] [address]- [address] Jan, [facility] [place] [facility] [address] [id number] [place] [address]- [address] Jan, [facility] [place] [facility] [address] [id number] [place] [address]- [address] Jan, [facility] [place] [facility] [address] [id number] [place] [address]- [address] Jan, [facility] [place] [facility] [address] [id number] [place] [address]- [address] Jan, [facility] [place] [facility] [address] [id number] [place] [address] Jan, [facility] [place] [facility] [address] [id number] [place] [address] Jan, [facility] [place] [facility] [address] [id number], [place] [address] Jan, [facility] [place] [facility] [address] [id number] [place] [address]- [address] Jan, [facility] [place] [facility] [address] [id number] [place] [address]- [address] 16 Jan, 2014 [facility] [place] [facility] [address] [id number], [place] [address] Jan, [facility] [place] [facility] [address] [id number], [place] [address] 13 Jan, 2014 [facility] [place] [facility] [address] [id number] [place] [address] 2546 29 Sep, 2013 [facility] [place] [facility] [address] [id number] [place] [address] 2546 29 Dec, 2013 [facility] [place] [facility] [address] [id number] [place] [address] 2546 26 Dec, 2013 [facility] [place] [facility] [address] [id number] [place] [address] 2546 26 Dec, 2013 [facility] [place] [facility] [address] [id number] [place] [address] 2542 26 Dec, 2013 [facility] [place] [facility] [address] [id number] [place] [address]- [address]66 26 Dec, 2013 [facility] [place] [facility] [address] [id number] [place] [address]- [address] 23 Dec, 2013 [facility] [place] [facility] [address] [id number] [place] [address]- [address] 23 Dec, 2013 [facility] [place] [facility] [address] [id number] [place] [address] 2545 22 Dec, 2013 [facility] [place] [facility] [address] [id number] [place] [address] 2548 22 Dec, 2013 [facility] [place] [facility] [address] [id number], [place] [address]44 16 Dec, 2013 [facility] [place] [facility] [address] [id number], [place] [address] 16 Dec, 2013 [facility] [place] [facility] [address] [id number], [place] [address] 2546 15 Dec, 2013 [facility] [place] [facility] [address] [id number] [place] [address] 2546 15 Dec, 2013 [facility] [place] [facility] [address] [id number] [place] [address]- [address] 09 Dec, 2013 [facility] [place] [facility] [address] [id number] [place] [address] Dec, [facility] [place] [facility] [address] [id number] [place] [address]- [address] Dec, [facility] [place] [facility] [address] [id number] [place] [address]- [address] Nov, [facility] [place] [facility] [address] [id number] [place] [address] Nov, [facility] [place] [facility] [address] [id number] [place] [address] Nov, [facility] [place] [facility] [address] [id number] [place] [address] Nov, [facility] [place] [facility] [address] [id number] [place] [address] 3654 Nov, [facility] [place] [facility] [address] [id number] [place] [address] 8896 Nov, [facility] [place] [facility] [address] [id number] [place] [address] 5555 Nov, [facility] [place] [facility] [address] [id number] [place] [address] 6127 Nov, [facility] [place] [facility] [address] [id number] [place] [address] 7734 Nov, [facility] [place] [facility] [address] [id number] [place] [address] 9223 Nov, [facility] [place] [facility] [address] [id number] [place] [address]395 Nov, [facility] [place] [facility] [address] [id number] [place] [address]- 9876 Nov, [facility] [place] [facility] [address] [id number] [place] [address] 1889 Nov, [facility] [place] [facility] [address] [id number] [place] [address]- 4948 Nov, [facility] [place] [facility] [address] [id number] [place] [address]01 Nov, [facility] [place] [facility] [address] [id number] [place] [address]- 9505 Nov, [facility] [place] [facility] [address] [id number] [place] [address]- 8392 Nov, [facility] [place] [facility] [address] [id number] [place] [address]- 3542 Nov, [facility] [place] [facility] [address] [id number] [place] [address]- 4199 Nov, [facility] [place] [facility] [address] [id number] [place] [address]- 1240 Nov, [facility] [place] [facility] [address] [id number] [place] [address]- 8296 Nov, [facility] [place] [facility] [address] [id number] [place] [address]- 5851 Oct, [facility] [place] [facility] [address] [id number] [place] [address]- 9029 Oct, [facility] [place] [facility] [address] [id number] [place] [address]- 4426 Oct, [facility] [place] [facility] [address] [id number] [place] [address]- 6509 Oct, [facility] [place] [facility] [address] [id number] [place] [address]- 0867 Oct, [facility] [place] [facility] [address] [id number] [place] [address]- 4758 Oct, [facility] [place] [facility] [address] [id number] [place] [address]- 4155 Oct, [facility] [place] [facility] [address] [id number] [place] [address]- 4700 Oct, [facility] [place] [facility] [address] [id number] [place] [address]- 6677 15 Oct, 2013 [facility] [place] [facility] [address] [id number] [place] [address]- 1509 14 Oct, 2013 [facility] [place] [facility] [address] [id number] [place] [address]- 2097 Oct, [facility] [place] [facility] [address] [id number] [place] [address]- 9899 Oct, [facility] [place] [facility] [address] [id number] [place] [address]- 1345 Oct, [facility] [place] [facility] [address] [id number] [place] [address]- 7371 Oct, [facility] [place] [facility] [address] [id number] [place] [address]- 8431 Oct, [facility] [place] [facility] [address] [id number] [place] [address]- 9462 Sep, [facility] [place] [facility] [address] [id number] [place] [address]- 9633 Sep, [facility] [place] [facility] [address] [id number] [place] [address]- 8520 Sep, [facility] [place] [facility] [address] [id number] [place] [address]- 8966 Sep, [facility] [place] [facility] [address] [id number] [place] [address]- 5819 Sep, [facility] [place] [facility] [address] [id number] [place] [address]- 5498 Sep, [facility] [place] [facility] [address] [id number] [place] [address]- 1100 Sep, [facility] [place] [facility] [address] [id number] [place] [address]- 2265 Sep, [facility] [place] [facility] [address] [id number] [place] [address]- 4339 17 Sep, 2013 [facility] [place] [facility] [address] [id number] [place] [address]- 2883 Sep, [facility] [place] [facility] [address] [id number] [place] [address]- 8068 Sep, [facility] [place] [facility] [address] [id number] [place] [address]- 3438 Sep, [facility] [place] [facility] [address] [id number] [place] [address]- 3346 Sep, [facility] [place] [facility] [address] [id number] [place] [address]- 7606 Sep, [facility] [place] [facility] [address] [id number] [place] [address]- 7460 Sep, [facility] [place] [facility] [address] [id number] [place] [address]- 5642 Sep, [facility] [place] [facility] [address] [id number] [place] [address]- 6393 Sep, [facility] [place] [facility] [address] [id number] [place] [address]- 4945 Sep, [facility] [place] [facility] [address] [id number] [place] [address]- 9299 Sep, [facility] [place] [facility] [address] [id number] [place] [address]- 2351 Sep, [facility] [place] [facility] [address] [id number] [place] [address]- 7023 Sep, [facility] [place] [facility] [address] [id number] [place] [address]- 5664 Sep, [facility] [place] [facility] [address] [id number] [place] [address]- 9029 August, [facility] [place] [facility] [address] [id number] [place] [address]- 5708 August, [facility] [place] [facility] [address] [id number] [place] [address]- 7888 August, [facility] [address] [id number] [place] [address]- 8843 August, [facility] [place] [facility] [address] [id number] [place] [address]- 3622 August, [facility] [place] [facility] [address] [id number] [place] [address]- 6808 August, [facility] [place] [facility] [address] [id number] [place] [address]- 7682 August, [facility] [place] [facility] [address] [id number] [place] [address]- 1369 August, [facility] [place] [facility] [address] [id number] [place] [address]- 6810 August, [facility] [place] [facility] [address] [id number] [place] [address]- 6778 August, [facility] [place] [facility] [address] [id number] [place] [address]- 9483 August, [facility] [place] [facility] [address] [id number] [place] [address]- 3495 August, [facility] [place] [facility] [address] [id number] [place] [address]- 4224 August, [facility] [place] [facility] [address] [id number] [place] [address]- 9402 August, [facility] [place] [facility] [address] [id number] [place] [address]- 5390 August, [facility] [place] [facility] [address] [id number] [place] [address]- 7017 August, [facility] [place] [facility] [address] [id number] [place] [address]- 3208 August, [facility] [place] [facility] [address] [id number] [place] [address]- 2057 August, [facility] [place] [facility] [address] [id number] [place] [address]- 6024 Jul, [facility] [place] [facility] [address] [id number] [place] [address]- 1836 Jul, [facility] [place] [facility] [address] [id number] [place] [address]- 5406 Jul, [facility] [place] [facility] [address] [id number] [place] [address]- 6005 Jul, [facility] [place] [facility] [address] [id number] [place] [address]- 9807 Jul, [facility] [place] [facility] [address] [id number] [place] [address]- 5840 Jul, [facility] [place] [facility] [address] [id number] [place] [address]- 4504 Jul, [facility] [place] [facility] [address] [id number] [place] [address]- 6983 Jul, [facility] [place] [facility] [address] [id number] [place] [address]- 1660 Jul, [facility] [place] [facility] [address] [id number] [place] [address]- 9247 Jul, [facility] [place] [facility] [address] [id number] [place] [address]- 3413 Jul, [facility] [place] [facility] [address] [id number] [place] [address]- 8350 Jul, [facility] [place] [facility] [address] [id number] [place] [address]- 2635 Jul, [facility] [place] [facility] [address] [id number] [place] [address]- 6590 Jul, [facility] [place] [facility] [address] [id number] [place] [address]- 3621 Jul, [facility] [place] [facility] [address] [id number] [place] [address]- 7226 Jul, [facility] [place] [facility] [address] [id number] [place] [address]- 6080 17 Jul, 2013 [facility] [place] [facility] [address] [id number] [place] [address]- 4881 16 Jul, 2013 [facility] [place] [facility] [address] [id number] [place] [address]- 3508 16 Jul, 2013 [facility] [place] [facility] [address] [id number] [place] [address]- 1350 15 Jul, 2013 [facility] [place] [facility] [address] [id number] [place] [address]- 8414 15 Jul, 2013 [facility] [place] [facility] [address] [id number] [place] [address]- 4922 14 Jul, 2013 [facility] [place] [facility] [address] [id number] [place] [address]- 1577 Jul, [facility] [place] [facility] [address] [id number] [place] [address]- 9924 Jul, [facility] [place] [facility] [address] [id number] [place] [address]- 0617 Jul, [facility] [place] [facility] [address] [id number] [place] [address]- 0712 Jul, [facility] [place] [facility] [address] [id number] [place] [address]- 5619 Jul, [facility] [place] [facility] [address] [id number] [place] [address]- 6400 Jul, [facility] [place] [facility] [address] [id number] [place] [address]- 5093 Jul, [facility] [place] [facility] [address] [id number] [place] [address]- 6669 Jun, [facility] [place] [facility] [address] [id number] [place] [address]- 1413 Jun, [facility] [place] [facility] [address] [id number] [place] [address]- 3017 17 Jun, 2013 [facility] [place] [facility] [address] [id number] [place] [address]- 2229 17 Jun, 2013 [facility] [place] [facility] [address] [id number] [place] [address]- 7970 Jun, [facility] [place] [facility] [address] [id number] [place] [address]- 1544 Jun, [facility] [place] [facility] [address] [id number] [place] [address]- 1377 Jun, [facility] [place] [facility] [address] [id number] [place] [address]- 4939 Jun, [facility] [place] [facility] [address] [id number] [place] [address]- 8372 Jun, [facility] [place] [facility] [address] [facility] [id number] [place] [address]- 5121 Jun, [facility] [place] [facility] [address] [id number] [place] [address]- 5037 Jun, [facility] [place] [facility] [address] [id number] [place] [address]- 7397 Jun, [facility] [place] [facility] [address] [facility] [id number] [place] [address]- 9552 May, [facility] [place] [facility] [address] [id number] [place] [address]- 7048 May, [facility] [place] [facility] [address] [id number] [place] [address]- 5518 May, [facility] [place] [facility] [address] [id number] [place] [address]- 9432 May, [facility] [place] [facility] [address] [id number] [place] [address]- 4596 May, [facility] [place] [facility] [address] [facility] [id number] [place] [address]- 9773 May, [facility] [place] [facility] [address] [id number] [place] [address]- 8012 May, [facility] [place] [facility] [address] [id number] [place] [address]- 5470 May, [facility] [place] [facility] [address] [id number] [place] [address]- 8156 May, [facility] [place] [facility] [address] [id number] [place] [address]- 9942 May, [facility] [place] [facility] [address] [id number] [place] [address]- 1722 Apr, [facility] [place] [facility] [address] [id number] [place] [address]- 7221 Apr, [facility] [place] [facility] [address] [id number] [place] [address]- 9893 Apr, [facility] [place] [facility] [address] [id number] [place] [address]- 8983 Apr, [facility] [place] [facility] [address] [id number] [place] [address]- 9521 Apr, [facility] [place] [facility] [address] [id number] [place] [address]- 0045 Apr, [facility] [place] [facility] [address] [id number] [place] [address]- 4376 Apr, [facility] [place] [facility] [address] [id number] [place] [address]- 2785 Apr, [facility] [place] [facility] [address] [id number] [place] [address]- 1035 Apr, [facility] [place] [facility] [address] [id number] [place] [address]- 7537 Apr, [facility] [place] [facility] [address] [id number] [place] [address]- 7516 Mar, [facility] [place] [facility] [address] [id number], [place] [address]- 4462 Mar, [facility] [place] [facility] [address] [id number] [place] [address]- 1402 Mar, [facility] [place] [facility] [address] [id number] [place] [address]- 5815 Mar, [facility] [place] [facility] [address] [id number] [place] [address]- 5426 Mar, [facility] [place] [facility] [address] [id number] [place] [address]- 7181 Mar, [facility] [place] [facility] [address] [id number] [place] [address]- 4911 Feb, [facility] [place] [facility] [address] [id number] [place] [address]- 0658 Feb, [facility] [place] [facility] [address] [facility] [id number] [place] [address]- 0011 Feb, [facility] [place] [facility] [address] [id number] [place] [address]- 6014 Jan, [facility] [place] [facility] [address] [facility] [id number] [place] [address]- 2087 30 Jan, 2013 [facility] [place] [facility] [address] [facility] [id number] [place] [address]- 6444 Jan, [facility] [place] [facility] [address] [id number], [place] [address]- 1782 28 Jan, 2013 [facility] [place] [facility] [address] [id number], [place] [address]- 3963 15 Jan, 2013 [facility] [place] [facility] [address] [id number] [place] [address]- 0438 15 Jan, 2013 [facility] [place] [facility] [address] [facility] [id number], [place] [address]- 1386 Jan, [facility] [place] [facility] [address] [facility] [id number], [place] [address]- 3863 11 Jan, 2013 [facility] [place] [facility] [address] [id number] [place] [address]- 4022 Jan, [facility] [place] [facility] [address] [id number] [place] [address]- 6909 Jan, [facility] [place] [facility] [address] [id number] [place] [address]- 4016 30 Dec, 2012 [facility] [place] [facility] [address] [id number] [place] [address]- 0216 25 Dec, 2012 [facility] [place] [facility] [address] [id number] [place] [address]- 2933 11 Dec, 2012 [facility] [place] [facility] [address] [id number] [place] [address]- 9270 Dec, 2012 [facility] [place] [facility] [address] [id number] [place] [address]- 8994 05 Dec, 2012 [facility] [place] [facility] [address] [id number] [place] [address]- 5908 Dec, 2012 [facility] [place] [facility] [address] [id number] [place] [address]- 0258 Nov, [facility] [place] [facility] [address] [id number] [place] [address]- 8403 Nov, [facility] [place] [facility] [address] [id number] [place] [address]- 8463 Nov, [facility] [place] [facility] [address] [id number] [place] [address]- 7072 Nov, [facility] [place] [facility] [address] [id number] [place] [address] 2541 Nov, [facility] [place] [facility] [address] [id number] [place] [address]- 2796 Nov, [facility] [place] [facility] [address] [id number] [place] [address]- 2545 Nov, [facility] [place] [facility] [address] [id number] [place] [address]- 2357 Nov, [facility] [address] [id number] [place] [address]- 4455 Nov, [facility] [place] [facility] [address] [id number] [place] [address]- 4438 Nov, [facility] [place] [facility] [address] [id number] [place] [address]- 0590 Nov, [facility] [place] [facility] [address] [id number] [place] [address]- 4851 Nov, [facility] [place] [facility] [address] [id number] [place] [address]- 0470 Oct, [facility] [place] [facility] [address] [id number] [place] [address]- 5001 Oct, [facility] [place] [facility] [address] [id number] [place] [address]- 7462 Oct, [facility] [place] [facility] [address] [id number] [place] [address]- 1690 Sep, [facility] [place] [facility] [address] [id number] [place] [address]- 1425 Sep, [facility] [place] [facility] [address] [id number] [place] [address]- 0356 Sep, [facility] [place] [facility] [address] [id number] [place] [address]- 2246 August, [facility] [place] [facility] [address] [id number] [place] [address]- 4630 August, [facility] [place] [facility] [address] [id number] [place] [address]- 4014 August, [facility] [place] [facility] [address] [id number] [place] [address]- 7903 August, [facility] [place] [facility] [address] [id number] [place] [address]- 1567 August, [facility] [place] [facility] [address] [id number] [place] [address] August, [facility] [address] [id number] [place] [address] 30 Jul, 2012 [facility] [place] [facility] [address] [id number] [place] [address] 15 Jul, 2012 [facility] [address] [id number] [place] [address] Jul, [facility] [place] [facility] [address] [id number] [place] [address] Jul, [facility] [address] [id number] [place] [address] Jul, [facility] [place] [facility] [address] [id number] [place] [address] Jul, [facility] [address] [id number] [place] [address] 2012 [facility] [address] [id number] [place] [address]8 20 Jun, 2012 [facility] [address] [id number] [place] [address] 18 Jun, 2012 [facility] [address] [id number] [place] [address] 14 Jun, 2012 [facility] [place] [facility] [address] [id number] [place] [address] 7947 04 Jun, 2012 [facility] [place] [facility] [address] [id number] [place] [address] May, [facility] [place] [facility] [address] [id number] [place] [address] 12 May, 2012 [facility] [place] [facility] [address] [id number] [place] [address] May, [facility] [place] [facility] [address] [id number] [place] [address] 08 May, 2012 [facility] [address] [id number] [place] [address] Apr, [facility] [place] [facility] [address] [id number] [place] [address] Apr, [facility] [place] [facility] [address] [id number] [place] [address] Apr, [facility] [place] [facility] [address] [id number] [place] [address] Mar, [facility] [place] [facility] [address] [id number] [place] [address] Mar, [facility] [place] [facility] [address] [id number] [place] [address]658 Mar, [facility] [place] [facility] [address] [id number] [place] [address] Mar, [facility] [place] [facility] [address] [id number] [place] [address] Mar, [facility] [place] [facility] [address] [id number] [place] [address] Mar, [facility] [place] [facility] [address] [id number] [place] [address] Mar, [facility] [place] [facility] [address] [id number] [place] [address] 39[address] Mar, [facility] [place] [facility] [address] [id number], [place] [address] Feb, [facility] [place] [facility] [address] [id number] [place] [address] Feb, [facility] [place] [facility] [address] [id number] [place] [address] Feb, [facility] [place] [facility] [address] [id number] [place] [address] Feb, [facility] [place] [facility] [address] [id number], [place] [address] Feb, [facility] [place] [facility] [address] [id number] [place] [address] Feb, [facility] [place] [facility] [address] [id number] [place] [address] Feb, [facility] [place] [facility] [address] [facility] [id number] [place] [address] 114[address] Feb, [facility] [place] [facility] [address] [id number] [place] [address] Feb, [facility] [place] [facility] [address] [id number] [place] [address] Feb, [facility] [place] [facility] [address] [facility] [id number] [place] [address]285 Feb, [facility] [place] [facility] [address] [id number] [address] Feb, [facility] [place] [facility] [address] [facility] [id number] [place] [address]078 Feb, [facility] [place] [facility] [address] [facility] [id number] [place] [address] 8175 Feb, [facility] [place] [facility] [address] [facility] [id number] [place] [address] 8364 Feb, [facility] [place] [facility] [address] [facility] [id number], [place] [address] Feb, [facility] [place] [facility] [address] [facility] [id number], [place] [address] Feb, [facility] [place] [facility] [address] [facility] [id number], [place] [address] Feb, [facility] [place] [facility] [address] [facility] [id number] [place] [address]642 Jan, [facility] [place] [facility] [address] [facility] [id number], [place] [address] Jan, [facility] [place] [facility] [address] [id number] [place] [address] 4666 22 Jan, 2011 [facility] [place] [facility] [address] [id number] [place] [address]- [address]269 20 Jan, 2012 [facility] [place] [facility] [address] [id number] [place] [address]- 2645 20 Jan, 2012 [facility] [place] [facility] [address] [id number] [place] [address]- 2176 19 Jan, 2012 [facility] [place] [facility] [address] [id number] [place] [address] 0351 18 Jan, 2012 [facility] [place] [facility] [address] [id number] [place] [address] 9105 18 Jan, 2012 [facility] [place] [facility] [address] [id number] [place] [address]- 2720 15 Jan, 2012 [facility] [place] [facility] [address] [id number] [place] [address]- 7865 15 Jan, 2012 [facility] [place] [facility] [address] [id number] [place] [address]- 8753 11 Jan, 2012 [facility] [place] [facility] [address] [id number] [place] [address]- 9175 11 Jan, 2012 [facility] [place] [facility] [address] [facility] [id number] [place] [address]- 7939 10 Jan, 2012 [facility] [place] [facility] [address] [id number] [place] [address]- 8306 09 Jan, 2012 [facility] [place] [facility] [address] [id number] [place] [address]- [address]243 02 Jan, 2012 [facility] [place] [facility] [address] [id number] [place] [address]- 2896 29 Dec, 2011 [facility] [place] [facility] [address] [id number] [place] [address]- 0566 28 Dec, 2011 [facility] [place] [facility] [address] [id number] [place] [address]- 4784 Dec, [facility] [place] [facility] [address] [id number] [place] [address]- [address]355 Dec, [facility] [place] [facility] [address] [id number] [place] [address]- 9097 Nov, [facility] [place] [facility] [address] [id number] [place] [address]- 8049 Nov, [facility] [place] [facility] [address] [id number] [place] [address]- 3752 Nov, [facility] [place] [facility] [address] [id number] [place] [address]- 7911 Nov, [facility] [place] [facility] [address] [id number] [place] [address]- 0039 Nov, [facility] [place] [facility] [address] [id number] [place] [address]- 9818 Nov, [facility] [place] [facility] [address] [id number] [place] [address]- 5095 Nov, [facility] [place] [facility] [address] [id number] [place] [address]- 2400 Nov, [facility] [place] [facility] [address] [id number] [place] [address]- 8203 Nov, [facility] [place] [facility] [address] [id number] [place] [address]- 0937 Nov, [facility] [place] [facility] [address] [id number] [place] [address]- 8079 Nov, [facility] [place] [facility] [address] [id number] [place] [address] Oct, [facility] [place] [facility] [address] [id number] [place] [address] Oct, [facility] [place] [facility] [address] [id number] [place] [address] Oct, [facility] [place] [facility] [address] [id number] [place] [address] Oct, [facility] [place] [facility] [address] [id number] [place] [address] Oct, [facility] [place] [facility] [address] [id number] [place] [address] Oct, [facility] [place] [facility] [address] [id number] [place] [address] Oct, [facility] [place] [facility] [address] [id number] [place] [address] Oct, [facility] [place] [facility] [address] [id number] [place] [address] Sep, [facility] [place] [facility] [address] [id number] [place] [address] Sep, [facility] [place] [facility] [address] [id number] [place] [address] Sep, [facility] [place] [facility] [address] [id number] [place] [address] Sep, [facility] [place] [facility] [address] [id number] [place] [address] Sep, [facility] [place] [facility] [address] [id number] [place] [address] Sep, [facility] [place] [facility] [address] [id number] [place] [address]661 Sep, [facility] [place] [facility] [address] [id number] [place] [address] August, [facility] [place] [facility] [address] [id number] [place] [address] August, [facility] [place] [facility] [address] [id number] [place] [address] August, [facility] [place] [facility] [address] [id number] [place] [address] August, [facility] [place] [facility] [address] [id number] [place] [address] August, [facility] [address] [id number] [place] [address] August, [facility] [place] [facility] [address] [id number] [place] [address] August, [facility] [address] [id number] [place] [address] August, [facility] [address] [id number] [place] [address] Jul, [facility] [place] [facility] [address] [id number] [place] [address]70 17 Jul, 2011 [facility] [address] [id number] [place] [address] Jul, [facility] [address] [id number] [place] [address] Jul, [facility] [address] [id number] [place] [address] Jul, [facility] [address] [id number] [place] [address] 28 Jun, 2011 [facility] [place] [facility] [address] [id number] [place] [address] 2011 [facility] [place] [facility] [address] [id number] [place] [address]227 20 Jun, 2011 [facility] [place] [facility] [address] [id number] [place] [address] 19 Jun, 2011 [facility] [place] [facility] [address] [id number] [place] [address] 12 Jun, 2011 [facility] [place] [facility] [address] [id number] [place] [address] Jun, [facility] [place] [facility] [address] [id number] [place] [address]656 Jun, [facility] [address] [id number] [place] [address] Jun, [facility] [address] [id number] [place] [address] 1116 Jun, [facility] [address] [id number] [place] [address] May, [facility] [address] [id number] [place] [address] May, [facility] [address] [id number] [place] [address] May, [facility] [address] [id number] [place] [address]246 May, [facility] [address] [id number] [place] [address] 1311 May, [facility] [address] [id number] [place] [address] May, [facility] [address] [id number] [place] [address] May, [facility] [address] [facility] [id number] [place] [address]74 May, [facility] [address] [facility] [id number] [place] [address] 1646 Apr, [facility] [place] [facility] [address] [id number] [place] [address] 7936 Apr, [facility] [place] [facility] [address] [id number] [place] [address]752 Apr, [facility] [place] [facility] [address] [id number] [place] [address]56 Apr, [facility] [address] [facility] [id number], [place] [address] Apr, [facility] [address] [id number] [place] [address]- [address]94 05 Apr, 2011 [facility] [address] [id number] [place] [address]600 Mar, [facility] [place] [facility] [address] [id number] [place] [address] 97[address] Mar, [facility] [place] [facility] [address] [id number] [place] [address] 389[address] Mar, [facility] [address] [id number] [place] [address]- 3394 Mar, [facility] [place] [facility] [address] [id number] [place] [address]- 9224 15 Mar, 2011 [facility] [address] [id number] [place] [address]408 Mar, [facility] [place] [facility] [address] [id number] [place] [address]- [address]457 Mar, [facility] [place] [facility] [address] [id number] [place] [address]- 0925 Mar, [facility] [place] [facility] [address] [id number] [place] [address]- 5848 Mar, [facility] [place] [facility] [address] [id number] [place] [address]- 9104 Mar, [facility] [place] [facility] [address] [id number] [place] [address]- 4148 Mar, [facility] [place] [facility] [address] [id number] [place] [address]- 5195 Mar, [facility] [place] [facility] [address] [id number] [place] [address]- 2173 Mar, [facility] [place] [facility] [address] [id number] [place] [address]- 1827 Feb, [facility] [place] [facility] [address] [id number] [place] [address]- 7906 Feb, [facility] [place] [facility] [address] [id number] [place] [address] 17 Feb, 2011 [facility] [place] [facility] [address] [id number] [place] [address]- 2796 Feb, [facility] [place] [facility] [address] [id number] [place] [address]- 8957 Feb, [facility] [place] [facility] [address] [id number] [place] [address]- 4856 Feb, [facility] [place] [facility] [address] [id number] [place] [address]- 1761 Feb, [facility] [place] [facility] [address] [id number] [place] [address]- 5250 Jan, [facility] [place] [facility] [address] [id number] [place] [address]- 9510 Jan, [facility] [place] [facility] [address] [id number] [place] [address]- 4488 Jan, [facility] [place] [facility] [address] [id number] [place] [address]- 2000 Nov, [facility] [place] [facility] [address] [id number] [place] [address]- 6191 Mar, [facility] [place] [facility] [address] [id number], [place] [address]- 47[address] Mar, [facility] [place] [facility] [address] [id number], [place] [address]- [address]321 20 Mar, 2010 [facility] [place] [facility] [address] [id number] [place] [address]- 8973 13 Mar, 2010 [facility] [place] [facility] [address] [id number] [place] [address] 07 Mar, 2010 [facility] [place] [facility] [address] [id number] [place] [address]- 5544 30 Feb, 2010 [facility] [place] [facility] [address] [facility] [id number] [place] [address]- [address]166 30 Feb, 2010 [facility] [address] [facility] [id number] [place] [address]- 1627 24 Feb, 2010 [facility] [address] [facility] [id number] [place] [address]- [address]135 19 Feb, 2010 [facility] [address] [facility] [id number], [place] [address]- 9034 19 Feb, 2010 [facility] [address] [facility] [id number] [place] [address]- 6088 15 Feb, 2010 IMMUNIZATIONS No Known Immunizations [...] Mastectomy 02/01/2017 Hospitalization History surgeries Hospitalization History [facility] ED 10/06/2017
--- OUTSIDE RECORDS SUMMARY | 2017-12-22 03:38 | XMS REPORT ---
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 [facility] [address] [id number] [place] [address]- 3712 Jun, [facility] [place] [facility] [address] [id number] [place] [address]- 2260 Jun, [facility] [place] [facility] [address] [id number] [place] [address]- 4463 Jun, [facility] [place] [facility] [address] [id number], [place] [address]- 4007 Jun, [facility] [place] [facility] [address] [id number], [place] [address]- 4789 19 Jun, 2014 [facility] [place] [facility] [address] [id number] [place] [address]- 2437 18 Jun, 2014 [facility] [place] [facility] [address] [id number] [place] [address]- 5982 18 Jun, 2014 [facility] [place] [facility] [address] [id number] [place] [address]- 7993 18 Jun, 2014 [facility] [place] [facility] [address] [id number] [place] [address]- 4924 18 Jun, 2014 [facility] [place] [facility] [address] [id number] [place] [address]- 3971 17 Jun, 2014 [facility] [place] [facility] [address] [id number] [place] [address]- 1646 17 Jun, 2014 [facility] [place] [facility] [address] [id number] [place] [address]- 1417 17 Jun, 2014 [facility] [place] [facility] [address] [id number] [place] [address]- 3111 17 Jun, 2014 [facility] [place] [facility] [address] [id number] [place] [address]- 2958 13 Jun, 2014 [facility] [place] [facility] [address] [id number] [place] [address]- 7758 13 Jun, 2014 [facility] [place] [facility] [address] [id number] [place] [address]- 9029 12 Jun, 2014 [facility] [place] [facility] [address] [id number] [place] [address]- 6761 12 Jun, 2014 [facility] [place] [facility] [address] [id number] [place] [address]- 0114 10 Jun, 2014 [facility] [place] [facility] [address] [id number] [place] [address]- 2158 10 Jun, 2014 [facility] [place] [facility] [address] [id number] [place] [address]- 9422 10 Jun, 2014 [facility] [place] [facility] [address] [id number] [place] [address]- 9302 10 Jun, 2014 [facility] [place] [facility] [address] [id number] [place] [address]- 0159 06 Jun, 2014 [facility] [place] [facility] [address] [id number] [place] [address]- 7310 06 Jun, 2014 [facility] [place] [facility] [address] [id number] [place] [address]- 4590 Jun, 2014 [facility] [place] [facility] [address] [id number] [place] [address]- 9418 Jun, [facility] [place] [facility] [address] [id number] [place] [address]- 5496 Jun, [facility] [place] [facility] [address] [id number] [place] [address]- 7509 Jun, [facility] [place] [facility] [address] [id number] [place] [address]- 3740 May, 2014 [facility] [place] [facility] [address] [id number] [place] [address]- 4812 May, 2014 [facility] [place] [facility] [address] [id number] [place] [address]- 2603 May, 2014 [facility] [place] [facility] [address] [id number] [place] [address]- 4025 May, 2014 [facility] [place] [facility] [address] [id number] [place] [address]- 5975 May, 2014 [facility] [place] [facility] [address] [id number] [place] [address]- 1242 May, 2014 [facility] [place] [facility] [address] [id number] [place] [address]- 0132 May, 2014 [facility] [place] [facility] [address] [id number] [place] [address]- 3236 May, 2014 [facility] [place] [facility] [address] [id number] [place] [address]- 8036 May, 2014 [facility] [place] [facility] [address] [id number] [place] [address]- 7780 May, 2014 [facility] [place] [facility] [address] [id number] [place] [address]- 4471 May, 2014 [facility] [place] [facility] [address] [facility] [id number] [place] [address]- 6074 May, 2014 [facility] [place] [facility] [address] [id number] [place] [address]- 7177 05 May, 2014 [facility] [place] [facility] [address] [id number] [place] [address]- 5302 May, [facility] [place] [facility] [address] [id number] [place] [address]- 0736 May, [facility] [place] [facility] [address] [id number] [place] [address]- 5404 May, [facility] [place] [facility] [address] [id number] [place] [address]- 9291 Apr, [facility] [place] [facility] [address] [id number] [place] [address]- 1877 Apr, [facility] [place] [facility] [address] [id number] [place] [address]- 6117 Apr, [facility] [place] [facility] [address] [id number] [place] [address]- 9940 Apr, [facility] [place] [facility] [address] [id number] [place] [address]- 8964 Apr, [facility] [place] [facility] [address] [id number] [place] [address]- 4399 Apr, [facility] [place] [facility] [address] [id number] [place] [address]- 0894 Apr, [facility] [place] [facility] [address] [id number] [place] [address]- 6017 Apr, [facility] [place] [facility] [address] [id number] [place] [address]- 3353 Apr, [facility] [place] [facility] [address] [id number] [place] [address]- 8739 Apr, [facility] [place] [facility] [address] [id number] [place] [address]- 8779 Apr, [facility] [place] [facility] [address] [id number] [place] [address]- 1273 Apr, [facility] [place] [facility] [address] [id number] [place] [address]- 6139 Apr, [facility] [place] [facility] [address] [id number] [place] [address]- 2606 Apr, [facility] [place] [facility] [address] [id number] [place] [address]- 1295 Apr, [facility] [place] [facility] [address] [id number] [place] [address]- 4316 Mar, [facility] [place] [facility] [address] [id number] [place] [address]- 3394 Mar, [facility] [place] [facility] [address] [id number] [place] [address]- 6297 Mar, [facility] [place] [facility] [address] [id number] [place] [address]- 2855 Mar, [facility] [place] [facility] [address] [id number] [place] [address]- 0538 Mar, [facility] [place] [facility] [address] [id number] [place] [address]- 8439 Mar, [facility] [place] [facility] [address] [id number] [place] [address]- 8581 15 Mar, 2014 [facility] [place] [facility] [address] [id number] [place] [address]- 1636 15 Mar, 2014 [facility] [place] [facility] [address] [id number], [place] [address]- 1690 15 Mar, 2014 [facility] [place] [facility] [address] [id number] [place] [address]- 0146 15 Mar, 2014 [facility] [place] [facility] [address] [id number] [place] [address]- 1794 15 Mar, 2014 [facility] [place] [facility] [address] [id number] [place] [address]- 5848 15 Mar, 2014 [facility] [place] [facility] [address] [id number] [place] [address]- 0594 Mar, [facility] [place] [facility] [address] [id number] [place] [address]- 3760 Mar, [facility] [place] [facility] [address] [id number] [place] [address]- 6533 Mar, [facility] [place] [facility] [address] [id number] [place] [address]- 9633 Mar, [facility] [place] [facility] [address] [id number] [place] [address]- 6349 Mar, [facility] [place] [facility] [address] [id number] [place] [address]- 9753 Mar, [facility] [place] [facility] [address] [id number] [place] [address]- 4537 Feb, [facility] [place] [facility] [address] [id number] [place] [address]- 4714 Feb, [facility] [place] [facility] [address] [id number] [place] [address]- 1768 Feb, [facility] [place] [facility] [address] [id number] [place] [address]- 1451 Feb, [facility] [place] [facility] [address] [facility] [id number] [place] [address]- 3476 Feb, [facility] [place] [facility] [address] [id number] [place] [address]- 4915 Feb, [facility] [place] [facility] [address] [id number] [place] [address]- 0424 Feb, [facility] [place] [facility] [address] [id number] [place] 8986 Feb, [facility] [place] [facility] [address] [id number] [place] [address]- 7608 Jan, [facility] [place] [facility] [address] [id number] [place] [address] Jan, [facility] [place] [facility] [address] [id number] [place] [address] Jan, [facility] [place] [facility] [address] [id number] [place] [address] Jan, [facility] [place] [facility] [address] [id number] [place] [address] Jan, [facility] [place] [facility] [address] [id number] [place] [address] Jan, [facility] [place] [facility] [address] [id number] [place] [address] Jan, [facility] [place] [facility] [address] [id number] [place] [address] Jan, [facility] [place] [facility] [address] [id number] [place] [address] Jan, [facility] [place] [facility] [address] [id number] [place] [address] Jan, [facility] [place] [facility] [address] [id number] [place] [address] Jan, [facility] [place] [facility] [address] [id number] [place] [address] Jan, [facility] [place] [facility] [address] [id number] [place] [address] Jan, [facility] [place] [facility] [address] [id number], [place] [address] Jan, [facility] [place] [facility] [address] [id number] [place] [address] Jan, [facility] [place] [facility] [address] [id number] [place] [address] 16 Jan, 2014 [facility] [place] [facility] [address] [id number], [place] [address] Jan, [facility] [place] [facility] [address] [id number], [place] [address] 13 Jan, 2014 [facility] [place] [facility] [address] [id number] [place] [address]46 29 Sep, 2013 [facility] [place] [facility] [address] [id number] [place] [address] 2546 29 Dec, 2013 [facility] [place] [facility] [address] [id number] [place] [address] 2546 26 Dec, 2013 [facility] [place] [facility] [address] [id number] [place] [address] 2546 26 Dec, 2013 [facility] [place] [facility] [address] [id number] [place] [address] 2541 26 Dec, 2013 [facility] [place] [facility] [address] [id number] [place] [address]- [address] 26 Dec, 2013 [facility] [place] [facility] [address] [id number] [place] [address]- [address] 23 Dec, 2013 [facility] [place] [facility] [address] [id number] [place] [address]- [address] 23 Dec, 2013 [facility] [place] [facility] [address] [id number] [place] [address] 2545 22 Dec, 2013 [facility] [place] [facility] [address] [id number] [place] [address] 2541 22 Dec, 2013 [facility] [place] [facility] [address] [id number], [place] [address]47 16 Dec, 2013 [facility] [place] [facility] [address] [id number], [place] [address]- [address] 16 Dec, 2013 [facility] [place] [facility] [address] [id number], [place] [address]46 15 Dec, 2013 [facility] [place] [facility] [address] [id number] [place] [address] 2546 15 Dec, 2013 [facility] [place] [facility] [address] [id number] [place] [address]- [address] 09 Dec, 2013 [facility] [place] [facility] [address] [id number] [place] [address] Dec, [facility] [place] [facility] [address] [id number] [place] [address] Dec, [facility] [place] [facility] [address] [id number] [place] [address] Nov, [facility] [place] [facility] [address] [id number] [place] [address] Nov, [facility] [place] [facility] [address] [id number] [place] [address]- [address] Nov, [facility] [place] [facility] [address] [id number] [place] [address] Nov, [facility] [place] [facility] [address] [id number] [place] [address] Nov, [facility] [place] [facility] [address] [id number] [place] [address]- [address] Nov, [facility] [place] [facility] [address] [id number] [place] [address] Nov, [facility] [place] [facility] [address] [id number] [place] [address] Nov, [facility] [place] [facility] [address] [id number] [place] [address]- [address] Nov, [facility] [place] [facility] [address] [id number] [place] [address] Nov, [facility] [place] [facility] [address] [id number] [place] [address] Nov, [facility] [place] [facility] [address] [id number] [place] [address]- [address] Nov, [facility] [place] [facility] [address] [id number] [place] [address]- [address]65 Nov, [facility] [place] [facility] [address] [id number] [place] [address]- [address] Nov, [facility] [place] [facility] [address] [id number] [place] [address]- [address]29 Nov, [facility] [place] [facility] [address] [id number] [place] [address]- [address] Nov, [facility] [place] [facility] [address] [id number] [place] [address]- [address] Nov, [facility] [place] [facility] [address] [id number] [place] [address]- [address] Nov, [facility] [place] [facility] [address] [id number] [place] [address]- [address] Nov, [facility] [place] [facility] [address] [id number] [place] [address]- [address] Nov, [facility] [place] [facility] [address] [id number] [place] [address]- [address] Nov, [facility] [place] [facility] [address] [id number] [place] [address] Oct, [facility] [place] [facility] [address] [id number] [place] [address] 6[address] Oct, [facility] [place] [facility] [address] [id number] [place] [address] 6962 Oct, [facility] [place] [facility] [address] [id number] [place] [address] 5324 Oct, [facility] [place] [facility] [address] [id number] [place] [address] 5937 Oct, [facility] [place] [facility] [address] [id number] [place] [address]- 6061 Oct, [facility] [place] [facility] [address] [id number] [place] [address]- 9154 Oct, [facility] [place] [facility] [address] [id number] [place] [address] 9798 Oct, [facility] [place] [facility] [address] [id number] [place] [address]- 7412 15 Oct, 2013 [facility] [place] [facility] [address] [id number] [place] [address]- 7960 14 Oct, 2013 [facility] [place] [facility] [address] [id number] [place] [address] 2304 Oct, [facility] [place] [facility] [address] [id number] [place] [address]- 4670 Oct, [facility] [place] [facility] [address] [id number] [place] [address]- 3230 Oct, [facility] [place] [facility] [address] [id number] [place] [address]- 7395 Oct, [facility] [place] [facility] [address] [id number] [place] [address]- 2693 Oct, [facility] [place] [facility] [address] [id number] [place] [address]- 2074 Sep, [facility] [place] [facility] [address] [id number] [place] [address]- 2150 Sep, [facility] [place] [facility] [address] [id number] [place] [address]- 7998 Sep, [facility] [place] [facility] [address] [id number] [place] [address]- 8760 Sep, [facility] [place] [facility] [address] [id number] [place] [address]- 7070 Sep, [facility] [place] [facility] [address] [id number] [place] [address]- 7947 Sep, [facility] [place] [facility] [address] [id number] [place] [address]- 6153 Sep, [facility] [place] [facility] [address] [id number] [place] [address]- 2868 Sep, [facility] [place] [facility] [address] [id number] [place] [address]- 1034 17 Sep, 2013 [facility] [place] [facility] [address] [id number] [place] [address]- 5383 Sep, [facility] [place] [facility] [address] [id number] [place] [address]- 2316 Sep, [facility] [place] [facility] [address] [id number] [place] [address]- 5947 Sep, [facility] [place] [facility] [address] [id number] [place] [address]- 5583 Sep, [facility] [place] [facility] [address] [id number] [place] [address]- 7729 Sep, [facility] [place] [facility] [address] [id number] [place] [address]- 4311 Sep, [facility] [place] [facility] [address] [id number] [place] [address]- 8962 Sep, [facility] [place] [facility] [address] [id number] [place] [address]- 9886 Sep, [facility] [place] [facility] [address] [id number] [place] [address]- 9548 Sep, [facility] [place] [facility] [address] [id number] [place] [address]- 8609 Sep, [facility] [place] [facility] [address] [id number] [place] [address]- 1186 Sep, [facility] [place] [facility] [address] [id number] [place] [address]- 6200 Sep, [facility] [place] [facility] [address] [id number] [place] [address]- 0885 Sep, [facility] [place] [facility] [address] [id number] [place] [address]- 8926 August, [facility] [place] [facility] [address] [id number] [place] [address]- 0417 August, [facility] [place] [facility] [address] [id number] [place] [address]- 9385 August, [facility] [address] [id number] [place] [address]- 5026 August, [facility] [place] [facility] [address] [id number] [place] [address]- 2412 August, [facility] [place] [facility] [address] [id number] [place] [address]- 9368 August, [facility] [place] [facility] [address] [id number] [place] [address]- 0313 August, [facility] [place] [facility] [address] [id number] [place] [address]- 6521 August, [facility] [place] [facility] [address] [id number] [place] [address]- 2612 August, [facility] [place] [facility] [address] [id number] [place] [address]- 5834 August, [facility] [place] [facility] [address] [id number] [place] [address]- 5278 August, [facility] [place] [facility] [address] [id number] [place] [address]- 3041 August, [facility] [place] [facility] [address] [id number] [place] [address]- 3562 August, [facility] [place] [facility] [address] [id number] [place] [address]- 5877 August, [facility] [place] [facility] [address] [id number] [place] [address]- 6077 August, [facility] [place] [facility] [address] [id number] [place] [address]- 4355 August, [facility] [place] [facility] [address] [id number] [place] [address]- 0090 August, [facility] [place] [facility] [address] [id number] [place] [address]- 6420 August, [facility] [place] [facility] [address] [id number] [place] [address]- 1887 Jul, [facility] [place] [facility] [address] [id number] [place] [address]- 7641 Jul, [facility] [place] [facility] [address] [id number] [place] [address]- 4980 Jul, [facility] [place] [facility] [address] [id number] [place] [address]- 2681 Jul, [facility] [place] [facility] [address] [id number] [place] [address]- 2829 Jul, [facility] [place] [facility] [address] [id number] [place] [address]- 2974 Jul, [facility] [place] [facility] [address] [id number] [place] [address]- 0044 Jul, [facility] [place] [facility] [address] [id number] [place] [address]- 8440 Jul, [facility] [place] [facility] [address] [id number] [place] [address]- 3979 Jul, [facility] [place] [facility] [address] [id number] [place] [address]- 0969 Jul, [facility] [place] [facility] [address] [id number] [place] [address]- 1343 Jul, [facility] [place] [facility] [address] [id number] [place] [address]- 5813 Jul, [facility] [place] [facility] [address] [id number] [place] [address]- 6740 Jul, [facility] [place] [facility] [address] [id number] [place] [address]- 9837 Jul, [facility] [place] [facility] [address] [id number] [place] [address]- 2630 Jul, [facility] [place] [facility] [address] [id number] [place] [address]- 7558 Jul, [facility] [place] [facility] [address] [id number] [place] [address]- 1792 17 Jul, 2013 [facility] [place] [facility] [address] [id number] [place] [address]- 3738 16 Jul, 2013 [facility] [place] [facility] [address] [id number] [place] [address]- 4343 16 Jul, 2013 [facility] [place] [facility] [address] [id number] [place] [address]- 2528 15 Jul, 2013 [facility] [place] [facility] [address] [id number] [place] [address]- 8649 15 Jul, 2013 [facility] [place] [facility] [address] [id number] [place] [address]- 8148 14 Jul, 2013 [facility] [place] [facility] [address] [id number] [place] [address]- 4053 Jul, [facility] [place] [facility] [address] [id number] [place] [address]- 3959 Jul, [facility] [place] [facility] [address] [id number] [place] [address]- 9808 Jul, [facility] [place] [facility] [address] [id number] [place] [address]- 8242 Jul, [facility] [place] [facility] [address] [id number] [place] [address]- 3598 Jul, [facility] [place] [facility] [address] [id number] [place] [address]- 5226 Jul, [facility] [place] [facility] [address] [id number] [place] [address]- 1043 Jul, [facility] [place] [facility] [address] [id number] [place] [address]- 5319 Jun, [facility] [place] [facility] [address] [id number] [place] [address]- 6488 Jun, [facility] [place] [facility] [address] [id number] [place] [address]- 5474 17 Jun, 2013 [facility] [place] [facility] [address] [id number] [place] [address]- 0910 17 Jun, 2013 [facility] [place] [facility] [address] [id number] [place] [address]- 3917 Jun, [facility] [place] [facility] [address] [id number] [place] [address]- 2705 Jun, [facility] [place] [facility] [address] [id number] [place] [address]- 9928 Jun, [facility] [place] [facility] [address] [id number] [place] [address]- 8980 Jun, [facility] [place] [facility] [address] [id number] [place] [address]- 1289 Jun, [facility] [place] [facility] [address] [facility] [id number] [place] [address]- 0297 Jun, [facility] [place] [facility] [address] [id number] [place] [address]- 1265 Jun, [facility] [place] [facility] [address] [id number] [place] [address]- 7505 Jun, [facility] [place] [facility] [address] [facility] [id number] [place] [address]- 4297 May, [facility] [place] [facility] [address] [id number] [place] [address]- 8499 May, [facility] [place] [facility] [address] [id number] [place] [address]- 9947 May, [facility] [place] [facility] [address] [id number] [place] [address]- 8013 May, [facility] [place] [facility] [address] [id number] [place] [address]- 7956 May, [facility] [place] [facility] [address] [facility] [id number] [place] [address]- 8347 May, [facility] [place] [facility] [address] [id number] [place] [address]- 8842 May, [facility] [place] [facility] [address] [id number] [place] [address]- 6191 May, [facility] [place] [facility] [address] [id number] [place] [address]- 6016 May, [facility] [place] [facility] [address] [id number] [place] [address]- 2943 May, [facility] [place] [facility] [address] [id number] [place] [address]- 0541 Apr, [facility] [place] [facility] [address] [id number] [place] [address]- 3185 Apr, [facility] [place] [facility] [address] [id number] [place] [address]- 4140 Apr, [facility] [place] [facility] [address] [id number] [place] [address]- 3079 Apr, [facility] [place] [facility] [address] [id number] [place] [address]- 9038 Apr, [facility] [place] [facility] [address] [id number] [place] [address]- 6536 Apr, [facility] [place] [facility] [address] [id number] [place] [address]- 3027 Apr, [facility] [place] [facility] [address] [id number] [place] [address]- 6641 Apr, [facility] [place] [facility] [address] [id number] [place] [address]- 7668 Apr, [facility] [place] [facility] [address] [id number] [place] [address]- 6345 Apr, [facility] [place] [facility] [address] [id number] [place] [address]- 4846 Mar, [facility] [place] [facility] [address] [id number], [place] [address]- 3548 Mar, [facility] [place] [facility] [address] [id number] [place] [address]- 2902 Mar, [facility] [place] [facility] [address] [id number] [place] [address]- 3196 Mar, [facility] [place] [facility] [address] [id number] [place] [address]- 1276 Mar, [facility] [place] [facility] [address] [id number] [place] [address]- 3317 Mar, [facility] [place] [facility] [address] [id number] [place] [address]- 2733 Feb, [facility] [place] [facility] [address] [id number] [place] [address]- 1705 Feb, [facility] [place] [facility] [address] [facility] [id number] [place] [address]- 6606 Feb, [facility] [place] [facility] [address] [id number] [place] [address]- 6398 Jan, [facility] [place] [facility] [address] [facility] [id number] [place] [address]- 3784 30 Jan, 2013 [facility] [place] [facility] [address] [facility] [id number] [place] [address]- 9886 Jan, [facility] [place] [facility] [address] [id number], [place] [address]- 9471 28 Jan, 2013 [facility] [place] [facility] [address] [id number], [place] [address]- 6727 15 Jan, 2013 [facility] [place] [facility] [address] [id number] [place] [address]- 4804 15 Jan, 2013 [facility] [place] [facility] [address] [facility] [id number], [place] [address]- 2940 Jan, [facility] [place] [facility] [address] [facility] [id number], [place] [address]- 9098 11 Jan, 2013 [facility] [place] [facility] [address] [id number] [place] [address]- 9052 Jan, [facility] [place] [facility] [address] [id number] [place] [address]- 8794 Jan, [facility] [place] [facility] [address] [id number] [place] [address]- 2856 30 Dec, 2012 [facility] [place] [facility] [address] [id number] [place] [address]- 5446 25 Dec, 2012 [facility] [place] [facility] [address] [id number] [place] [address]- 6271 11 Dec, 2012 [facility] [place] [facility] [address] [id number] [place] [address]- 3822 Dec, 2012 [facility] [place] [facility] [address] [id number] [place] [address]- 0492 05 Dec, 2012 [facility] [place] [facility] [address] [id number] [place] [address]- 3967 Dec, 2012 [facility] [place] [facility] [address] [id number] [place] [address]- 7058 Nov, [facility] [place] [facility] [address] [id number] [place] [address]- 1601 Nov, [facility] [place] [facility] [address] [id number] [place] [address]- 9241 Nov, [facility] [place] [facility] [address] [id number] [place] [address]- 7860 Nov, [facility] [place] [facility] [address] [id number] [place] [address] 2545 Nov, [facility] [place] [facility] [address] [id number] [place] [address]- 3676 Nov, [facility] [place] [facility] [address] [id number] [place] [address]- 254 Nov, [facility] [place] [facility] [address] [id number] [place] [address]- 3290 Nov, [facility] [address] [id number] [place] [address]- 1511 Nov, [facility] [place] [facility] [address] [id number] [place] [address]- 6852 Nov, [facility] [place] [facility] [address] [id number] [place] [address]- 9907 Nov, [facility] [place] [facility] [address] [id number] [place] [address]- 5374 Nov, [facility] [place] [facility] [address] [id number] [place] [address]- 5748 Oct, [facility] [place] [facility] [address] [id number] [place] [address]- 5697 Oct, [facility] [place] [facility] [address] [id number] [place] [address]- 6371 Oct, [facility] [place] [facility] [address] [id number] [place] [address]- 1561 Sep, [facility] [place] [facility] [address] [id number] [place] [address]- 1446 Sep, [facility] [place] [facility] [address] [id number] [place] [address]- 4746 Sep, [facility] [place] [facility] [address] [id number] [place] [address]- 5903 August, [facility] [place] [facility] [address] [id number] [place] [address]- 2409 August, [facility] [place] [facility] [address] [id number] [place] [address]- 8053 August, [facility] [place] [facility] [address] [id number] [place] [address]- 9306 August, [facility] [place] [facility] [address] [id number] [place] [address]- 5815 August, [facility] [place] [facility] [address] [id number] [place] [address]- 6317 August, [facility] [address] [id number] [place] [address]- 3416 30 Jul, 2012 [facility] [place] [facility] [address] [id number] [place] [address]- 8984 15 Jul, 2012 [facility] [address] [id number] [place] [address]- 0986 Jul, [facility] [place] [facility] [address] [id number] [place] [address]- 0922 Jul, [facility] [address] [id number] [place] [address]- 7574 Jul, [facility] [place] [facility] [address] [id number] [place] [address]- 8317 Jul, [facility] [address] [id number] [place] [address]- 6499 2012 [facility] [address] [id number] [place] [address]- 4278 20 Jun, 2012 [facility] [address] [id number] [place] [address]- 6917 18 Jun, 2012 [facility] [address] [id number] [place] [address]- 8381 14 Jun, 2012 [facility] [place] [facility] [address] [id number] [place] [address]- 8870 04 Jun, 2012 [facility] [place] [facility] [address] [id number] [place] [address]- 1213 May, [facility] [place] [facility] [address] [id number] [place] [address]- 7852 12 May, 2012 [facility] [place] [facility] [address] [id number] [place] [address]- 0578 May, [facility] [place] [facility] [address] [id number] [place] [address]- 3858 08 May, 2012 [facility] [address] [id number] [place] [address]- 8128 Apr, [facility] [place] [facility] [address] [id number] [place] [address]- 1968 Apr, [facility] [place] [facility] [address] [id number] [place] [address]- 0748 Apr, [facility] [place] [facility] [address] [id number] [place] [address]- 6615 Mar, [facility] [place] [facility] [address] [id number] [place] [address]- 8879 Mar, [facility] [place] [facility] [address] [id number] [place] [address]- 0295 Mar, [facility] [place] [facility] [address] [id number] [place] [address]- 6578 Mar, [facility] [place] [facility] [address] [id number] [place] [address]- 3972 Mar, [facility] [place] [facility] [address] [id number] [place] [address]- 1881 Mar, [facility] [place] [facility] [address] [id number] [place] [address]- 2022 Mar, [facility] [place] [facility] [address] [id number] [place] [address]- 7396 Mar, [facility] [place] [facility] [address] [id number], [place] [address]- [address] Feb, [facility] [place] [facility] [address] [id number] [place] [address] Feb, [facility] [place] [facility] [address] [id number] [place] [address] Feb, [facility] [place] [facility] [address] [id number] [place] [address]99 Feb, [facility] [place] [facility] [address] [id number], [place] [address] Feb, [facility] [place] [facility] [address] [id number] [place] [address] Feb, [facility] [place] [facility] [address] [id number] [place] [address] Feb, [facility] [place] [facility] [address] [facility] [id number] [place] [address] Feb, [facility] [place] [facility] [address] [id number] [place] [address] 2014 Feb, [facility] [place] [facility] [address] [id number] [place] [address] Feb, [facility] [place] [facility] [address] [facility] [id number] [place] [address] 85[address] Feb, [facility] [place] [facility] [address] [id number] [address] Feb, [facility] [place] [facility] [address] [facility] [id number] [place] [address] Feb, [facility] [place] [facility] [address] [facility] [id number] [place] [address]- 44[address] Feb, [facility] [place] [facility] [address] [facility] [id number] [place] [address] Feb, [facility] [place] [facility] [address] [facility] [id number], [place] [address] Feb, [facility] [place] [facility] [address] [facility] [id number], [place] [address] Feb, [facility] [place] [facility] [address] [facility] [id number], [place] [address] Feb, [facility] [place] [facility] [address] [facility] [id number] [place] [address] Jan, [facility] [place] [facility] [address] [facility] [id number], [place] [address] Jan, [facility] [place] [facility] [address] [id number] [place] [address]- [address] 22 Jan, 2011 [facility] [place] [facility] [address] [id number] [place] [address] 20 Jan, 2012 [facility] [place] [facility] [address] [id number] [place] [address]- 8982 20 Jan, 2012 [facility] [place] [facility] [address] [id number] [place] [address]- [address]85 19 Jan, 2012 [facility] [place] [facility] [address] [id number] [place] [address] 18 Jan, 2012 [facility] [place] [facility] [address] [id number] [place] [address]- [address] 18 Jan, 2012 [facility] [place] [facility] [address] [id number] [place] [address]- 8695 15 Jan, 2012 [facility] [place] [facility] [address] [id number] [place] [address]- [address] 15 Jan, 2012 [facility] [place] [facility] [address] [id number] [place] [address]- [address]47 11 Jan, 2012 [facility] [place] [facility] [address] [id number] [place] [address]- 8010 11 Jan, 2012 [facility] [place] [facility] [address] [facility] [id number] [place] [address]- 9949 10 Jan, 2012 [facility] [place] [facility] [address] [id number] [place] [address]- 6988 09 Jan, 2012 [facility] [place] [facility] [address] [id number] [place] [address]- [address]49 02 Jan, 2012 [facility] [place] [facility] [address] [id number] [place] [address]- [address]706 29 Dec, 2011 [facility] [place] [facility] [address] [id number] [place] [address]- [address]256 28 Dec, 2011 [facility] [place] [facility] [address] [id number] [place] [address]- 3938 Dec, [facility] [place] [facility] [address] [id number] [place] [address]- 7510 Dec, [facility] [place] [facility] [address] [id number] [place] [address]- [address] Nov, [facility] [place] [facility] [address] [id number] [place] [address]- 2660 Nov, [facility] [place] [facility] [address] [id number] [place] [address]- [address]237 Nov, [facility] [place] [facility] [address] [id number] [place] [address]- [address]121 Nov, [facility] [place] [facility] [address] [id number] [place] [address]- 8489 Nov, [facility] [place] [facility] [address] [id number] [place] [address]- 67[address] Nov, [facility] [place] [facility] [address] [id number] [place] [address]- 1752 Nov, [facility] [place] [facility] [address] [id number] [place] [address]- [address]171 Nov, [facility] [place] [facility] [address] [id number] [place] [address]- 4474 Nov, [facility] [place] [facility] [address] [id number] [place] [address]- 8811 Nov, [facility] [place] [facility] [address] [id number] [place] [address]- 1280 Nov, [facility] [place] [facility] [address] [id number] [place] [address]- 9243 Oct, [facility] [place] [facility] [address] [id number] [place] [address]- 8863 Oct, [facility] [place] [facility] [address] [id number] [place] [address]- 1760 Oct, [facility] [place] [facility] [address] [id number] [place] [address]- 9443 Oct, [facility] [place] [facility] [address] [id number] [place] [address]- 1774 Oct, [facility] [place] [facility] [address] [id number] [place] [address]- 0936 Oct, [facility] [place] [facility] [address] [id number] [place] [address]- 1846 Oct, [facility] [place] [facility] [address] [id number] [place] [address]- 2385 Oct, [facility] [place] [facility] [address] [id number] [place] [address]- 3064 Sep, [facility] [place] [facility] [address] [id number] [place] [address]- 4678 Sep, [facility] [place] [facility] [address] [id number] [place] [address]- 6459 Sep, [facility] [place] [facility] [address] [id number] [place] [address]- 4967 Sep, [facility] [place] [facility] [address] [id number] [place] [address]- 3055 Sep, [facility] [place] [facility] [address] [id number] [place] [address]- 1387 Sep, [facility] [place] [facility] [address] [id number] [place] [address]- 5342 Sep, [facility] [place] [facility] [address] [id number] [place] [address]- [address]96 August, [facility] [place] [facility] [address] [id number] [place] [address]- 3612 August, [facility] [place] [facility] [address] [id number] [place] [address]- 7[address] August, [facility] [place] [facility] [address] [id number] [place] [address]- 4973 August, [facility] [place] [facility] [address] [id number] [place] [address]- 5927 August, [facility] [address] [id number] [place] [address]- 1662 August, [facility] [place] [facility] [address] [id number] [place] [address]- [address]206 August, [facility] [address] [id number] [place] [address]- 1166 August, [facility] [address] [id number] [place] [address]- 1005 Jul, [facility] [place] [facility] [address] [id number] [place] [address]- 8090 17 Jul, 2011 [facility] [address] [id number] [place] [address] Jul, [facility] [address] [id number] [place] [address] Jul, [facility] [address] [id number] [place] [address] Jul, [facility] [address] [id number] [place] [address] 28 Jun, 2011 [facility] [place] [facility] [address] [id number] [place] [address] 2011 [facility] [place] [facility] [address] [id number] [place] [address] 20 Jun, 2011 [facility] [place] [facility] [address] [id number] [place] [address] 19 Jun, 2011 [facility] [place] [facility] [address] [id number] [place] [address] 12 Jun, 2011 [facility] [place] [facility] [address] [id number] [place] [address] Jun, [facility] [place] [facility] [address] [id number] [place] [address] Jun, [facility] [address] [id number] [place] [address] Jun, [facility] [address] [id number] [place] [address] Jun, [facility] [address] [id number] [place] [address] May, [facility] [address] [id number] [place] [address] May, [facility] [address] [id number] [place] [address] May, [facility] [address] [id number] [place] [address] May, [facility] [address] [id number] [place] [address] May, [facility] [address] [id number] [place] [address] May, [facility] [address] [id number] [place] [address] May, [facility] [address] [facility] [id number] [place] [address] May, [facility] [address] [facility] [id number] [place] [address] Apr, [facility] [place] [facility] [address] [id number] [place] [address] Apr, [facility] [place] [place] [facility] [address] [id number] [place] [address] Apr, [facility] [place] [place] [facility] [address] [id number] [place] [address] Apr, [facility] [address] [facility] [id number], [place] [address] Apr, [facility] [address] [id number] [place] [address] 05 Apr, 2011 [facility] [address] [id number] [place] [address] Mar, [facility] [place] [facility] [address] [id number] [place] [address] Mar, [facility] [place] [facility] [address] [id number] [place] [address] Mar, [facility] [address] [id number] [place] [address] Mar, [facility] [place] [facility] [address] [id number] [place] [address] 15 Mar, 2011 [facility] [address] [id number] [place] [address] Mar, [facility] [place] [facility] [address] [id number] [place] [address] Mar, [facility] [place] [facility] [address] [id number] [place] [address] Mar, [facility] [place] [facility] [address] [id number] [place] [address] Mar, [facility] [place] [facility] [address] [id number] [place] [address] Mar, [facility] [place] [facility] [address] [id number] [place] [address] Mar, [facility] [place] [facility] [address] [id number] [place] [address] Mar, [facility] [place] [facility] [address] [id number] [place] [address] Mar, [facility] [place] [facility] [address] [id number] [place] [address] Feb, [facility] [place] [facility] [address] [id number] [place] [address] Feb, [facility] [place] [facility] [address] [id number] [place] [address] 17 Feb, 2011 [facility] [place] [facility] [address] [id number] [place] [address] Feb, [facility] [place] [facility] [address] [id number] [place] [address] Feb, [facility] [place] [facility] [address] [id number] [place] [address]- [address] Feb, [facility] [place] [facility] [address] [id number] [place] [address] Feb, [facility] [place] [facility] [address] [id number] [place] [address] Jan, [facility] [place] [facility] [address] [id number] [place] [address] Jan, [facility] [place] [facility] [address] [id number] [place] [address] Jan, [facility] [place] [facility] [address] [id number] [place] [address] Nov, [facility] [place] [facility] [address] [id number] [place] [address] Mar, [facility] [place] [facility] [address] [id number], [place] [address] Mar, [facility] [place] [facility] [address] [id number], [place] [address] 20 Mar, 2010 [facility] [place] [facility] [address] [id number] [place] [address] 13 Mar, 2010 [facility] [place] [facility] [address] [id number] [place] [address] 07 Mar, 2010 [facility] [place] [facility] [address] [id number] [place] [address] 30 Feb, 2010 [facility] [place] [facility] [address] [facility] [id number] [place] [address] 30 Feb, 2010 [facility] [address] [facility] [id number] [place] [address]65 24 Feb, 2010 [facility] [address] [facility] [id number] [place] [address] Feb, [facility] [address] [facility] [id number], [place] [address] Feb, [facility] [address] [facility] [id number] [place] [address] 15 Feb, 2010 IMMUNIZATIONS No Known Immunizations SOCIAL HISTORY Never Assessed REASON FOR VISIT paperwork, Radha came in today for paperwork to fill out. Paperwork placed on Dustin Ferrell's desk for review. JUAN Hurtado PLAN OF CARE VITAL SIGNS Height 60 in 2017-09-14 Weight 198.2 lbs 2017-09-14 BMI 38.70 kg/m2 2017-09-14 MEDICATIONS Unknown Medications RESULTS No Results PROCEDURES [...] Mastectomy 02/01/2017 Hospitalization History surgeries Hospitalization History [facility] ED 10/06/2017
--- OUTSIDE RECORDS SUMMARY | 2017-12-22 03:39 | XMS REPORT ---
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 [place] [facility] [address] [id number] [place] [address]- 9060 Jun, [facility] [place] [facility] [address] [id number] [place] [address]- 1074 Jun, [facility] [place] [facility] [address] [id number] [address]- 3247 Jun, [facility] [place] [facility] [address] [id number] [place] [address]- 8105 19 Jun, 2014 [facility] [place] [facility] [address] [id number] [place] [address]- 7038 18 Jun, 2014 [facility] [place] [facility] [address] [id number] [place] [address]- 3267 18 Jun, 2014 [facility] [place] [facility] [address] [id number] [place] [address]- 8356 18 Jun, 2014 [facility] [place] [facility] [address] [id number] [place] [address]- 1175 18 Jun, 2014 [facility] [place] [facility] [address] [id number] [place] [address]- 8812 17 Jun, 2014 [facility] [place] [facility] [address] [id number] [place] [address]- 6826 17 Jun, 2014 [facility] [place] [facility] [address] [id number] [place] [address]- 2203 17 Jun, 2014 [facility] [place] [facility] [address] [id number] [place] [address]- 8442 17 Jun, 2014 [facility] [place] [facility] [address] [id number] [place] [address]- 7703 13 Jun, 2014 [facility] [place] [facility] [address] [id number] [place] [address]- 0672 13 Jun, 2014 [facility] [place] [facility] [address] [id number] [place] [address]- 9101 12 Jun, 2014 [facility] [place] [facility] [address] [id number] [place] [address]- 3859 12 Jun, 2014 [facility] [place] [facility] [address] [id number] [place] [address]- 3310 10 Jun, 2014 [facility] [place] [facility] [address] [id number] [place] [address]- 4852 10 Jun, 2014 [facility] [place] [facility] [address] [id number] [place] [address]- 1979 10 Jun, 2014 [facility] [place] [facility] [address] [id number] [place] [address]- 3013 10 Jun, 2014 [facility] [place] [facility] [address] [id number] [place] [address]- 5755 06 Jun, 2014 [facility] [place] [facility] [address] [id number] [place] [address]- 1726 06 Jun, 2014 [facility] [place] [facility] [address] [id number] [place] [address]- 0029 Jun, 2014 [facility] [place] [facility] [address] [id number] [place] [address]- 8145 Jun, [facility] [place] [facility] [address] [id number] [place] [address]- 5435 Jun, [facility] [place] [facility] [address] [id number] [place] [address]- 9255 Jun, [facility] [place] [facility] [address] [id number] [place] [address]- 4304 May, 2014 [facility] [place] [facility] [address] [id number] [place] [address]- 0661 May, 2014 [facility] [place] [facility] [address] [id number] [place] [address]- 3198 May, 2014 [facility] [place] [facility] [address] [id number] [place] [address]- 3691 May, 2014 [facility] [place] [facility] [address] [id number] [place] [address]- 1754 May, 2014 [facility] [place] [facility] [address] [id number] [place] [address]- 1202 May, 2014 [facility] [place] [facility] [address] [id number] [place] [address]- 6744 May, 2014 [facility] [place] [facility] [address] [id number] [place] [address]- 0518 May, 2014 [facility] [place] [facility] [address] [id number] [place] [address]- 9162 May, 2014 [facility] [place] [facility] [address] [id number] [place] [address]- 5921 May, 2014 [facility] [place] [facility] [address] [id number] [place] [address]- 3235 May, 2014 [facility] [place] [facility] [address] [facility] [id number] [place] [address]- 4144 May, 2014 [facility] [place] [facility] [address] [id number] [place] [address]- 9914 05 May, 2014 [facility] [place] [facility] [address] [id number] [place] [address]- 9418 May, [facility] [place] [facility] [address] [id number] [place] [address]- 1586 May, [facility] [place] [facility] [address] [id number] [place] [address]- 6350 May, [facility] [place] [facility] [address] [id number] [place] [address]- 7280 Apr, [facility] [place] [facility] [address] [id number] [place] [address]- 8373 Apr, [facility] [place] [facility] [address] [id number] [place] [address]- 1800 Apr, [facility] [place] [facility] [address] [id number] [place] [address]- 2317 Apr, [facility] [place] [facility] [address] [id number] [place] [address]- 4720 Apr, [facility] [place] [facility] [address] [id number] [place] [address]- 1079 Apr, [facility] [place] [facility] [address] [id number] [place] [address]- 3419 Apr, [facility] [place] [facility] [address] [id number] [place] [address]- 5597 Apr, [facility] [place] [facility] [address] [id number] [place] [address]- 4623 Apr, [facility] [place] [facility] [address] [id number] [place] [address]- 4871 Apr, [facility] [place] [facility] [address] [id number] [place] [address]- 7029 Apr, [facility] [place] [facility] [address] [id number] [place] [address]- 8704 Apr, [facility] [place] [facility] [address] [id number] [place] [address]- 5947 Apr, [facility] [place] [facility] [address] [id number] [place] [address]- 0736 Apr, [facility] [place] [facility] [address] [id number] [place] [address]- 8451 Apr, [facility] [place] [facility] [address] [id number] [place] [address]- 2777 Mar, [facility] [place] [facility] [address] [id number] [place] [address]- 3776 Mar, [facility] [place] [facility] [address] [id number] [place] [address]- 7797 Mar, [facility] [place] [facility] [address] [id number] [place] [address]- 3699 Mar, [facility] [place] [facility] [address] [id number] [place] [address]- 5910 Mar, [facility] [place] [facility] [address] [id number] [place] [address]- 0487 Mar, [facility] [place] [facility] [address] [id number] [place] [address]- 6773 15 Mar, 2014 [facility] [place] [facility] [address] [id number] [place] [address]- 5859 15 Mar, 2014 [facility] [place] [facility] [address] [id number] [address]- 3977 15 Mar, 2014 [facility] [place] [facility] [address] [id number] [place] [address]- 9066 15 Mar, 2014 [facility] [place] [facility] [address] [id number] [place] [address]- 1788 15 Mar, 2014 [facility] [place] [facility] [address] [id number] [place] [address]- 9209 15 Mar, 2014 [facility] [place] [facility] [address] [id number] [place] [address]- 4727 Mar, [facility] [place] [facility] [address] [id number] [place] [address]- 4736 Mar, [facility] [place] [facility] [address] [id number] [place] [address]- 3307 Mar, [facility] [place] [facility] [address] [id number] [place] [address]- 7494 Mar, [facility] [place] [facility] [address] [id number] [place] [address]- 3407 Mar, [facility] [place] [facility] [address] [id number] [place] [address]- 5883 Mar, [facility] [place] [facility] [address] [id number] [place] [address]- 4627 Feb, [facility] [place] [facility] [address] [id number] [place] [address]- 7070 Feb, [facility] [place] [facility] [address] [id number] [place] [address]- 0656 Feb, [facility] [place] [facility] [address] [id number] [place] [address]- 1818 Feb, [facility] [place] [facility] [address] [facility] [id number] [place] [address]- 3256 Feb, [facility] [place] [facility] [address] [id number] [place] [address]- 7898 Feb, [facility] [place] [facility] [address] [id number] [place] [address]- 4840 Feb, [facility] [place] [facility] [address] [id number] [place] 2769 Feb, [facility] [place] [facility] [address] [id number] [place] [address] Jan, [facility] [place] [facility] [address] [id number] [place] [address] Jan, [facility] [place] [facility] [address] [id number] [place] [address] Jan, [facility] [place] [facility] [address] [id number] [place] [address] Jan, [facility] [place] [facility] [address] [id number] [place] [address] Jan, [facility] [place] [facility] [address] [id number] [place] [address] Jan, [facility] [place] [facility] [address] [id number] [place] [address] Jan, [facility] [place] [facility] [address] [id number] [place] [address] Jan, [facility] [place] [facility] [address] [id number] [place] [address] Jan, [facility] [place] [facility] [address] [id number] [place] [address] Jan, [facility] [place] [facility] [address] [id number] [place] [address] Jan, [facility] [place] [facility] [address] [id number] [place] [address] Jan, [facility] [place] [facility] [address] [id number] [place] [address] Jan, [facility] [place] [facility] [address] [id number] [address] Jan, [facility] [place] [facility] [address] [id number] [place] [address] 75[address] Jan, [facility] [place] [facility] [address] [id number] [place] [address] 16 Jan, 2014 [facility] [place] [facility] [address] [id number] [place] [address] Jan, [facility] [place] [facility] [address] [id number] [address] 13 Jan, 2014 [facility] [place] [facility] [address] [id number] [place] [address] 2546 29 Sep, 2013 [facility] [place] [facility] [address] [id number] [place] [address] 2546 29 Dec, 2013 [facility] [place] [facility] [address] [id number] [place] [address] 2546 26 Dec, 2013 [facility] [place] [facility] [address] [id number] [place] [address] 2546 26 Dec, 2013 [facility] [place] [facility] [address] [id number] [place] [address] 2548 26 Dec, 2013 [facility] [place] [facility] [address] [id number] [place] [address] 26 Dec, 2013 [facility] [place] [facility] [address] [id number] [place] [address] 23 Dec, 2013 [facility] [place] [facility] [address] [id number] [place] [address] 23 Dec, 2013 [facility] [place] [facility] [address] [id number] [place] [address] 2544 22 Dec, 2013 [facility] [place] [facility] [address] [id number] [place] [address] 254 22 Dec, 2013 [facility] [place] [facility] [address] [id number] [place] [address] 254 16 Dec, 2013 [facility] [place] [facility] [address] [id number] [place] [address] 16 Dec, 2013 [facility] [place] [facility] [address] [id number] [place] [address] 2546 15 Dec, 2013 [facility] [place] [facility] [address] [id number] [place] [address] 2546 15 Dec, 2013 [facility] [place] [facility] [address] [id number] [place] [address]- [address] 09 Dec, 2013 [facility] [place] [facility] [address] [id number] [place] [address] Dec, [facility] [place] [facility] [address] [id number] [place] [address] Dec, [facility] [place] [facility] [address] [id number] [place] [address] 10[address] Nov, [facility] [place] [facility] [address] [id number] [place] [address] Nov, [facility] [place] [facility] [address] [id number] [place] [address] Nov, [facility] [place] [facility] [address] [id number] [place] [address] 74[address] Nov, [facility] [place] [facility] [address] [id number] [place] [address] 39[address] Nov, [facility] [place] [facility] [address] [id number] [place] [address] Nov, [facility] [place] [facility] [address] [id number] [place] [address] 77[address] Nov, [facility] [place] [facility] [address] [id number] [place] [address]- [address] Nov, [facility] [place] [facility] [address] [id number] [place] [address] 28[address] Nov, [facility] [place] [facility] [address] [id number] [place] [address] Nov, [facility] [place] [facility] [address] [id number] [place] [address]- 4068 Nov, [facility] [place] [facility] [address] [id number] [place] [address] Nov, [facility] [place] [facility] [address] [id number] [place] [address]- [address] Nov, [facility] [place] [facility] [address] [id number] [place] [address]- [address] Nov, [facility] [place] [facility] [address] [id number] [place] [address] 9266 Nov, [facility] [place] [facility] [address] [id number] [place] [address]- 1810 Nov, [facility] [place] [facility] [address] [id number] [place] [address] 6[address] Nov, [facility] [place] [facility] [address] [id number] [place] [address]- [address]79 Nov, [facility] [place] [facility] [address] [id number] [place] [address]- 14[address] Nov, [facility] [place] [facility] [address] [id number] [place] [address]- 6291 Nov, [facility] [place] [facility] [address] [id number] [place] [address]- 9724 Nov, [facility] [place] [facility] [address] [id number] [place] [address]- [address] Oct, [facility] [place] [facility] [address] [id number] [place] [address]- 38[address] Oct, [facility] [place] [facility] [address] [id number] [place] [address]- 77[address] Oct, [facility] [place] [facility] [address] [id number] [place] [address] 65[address] Oct, [facility] [place] [facility] [address] [id number] [place] [address] 8949 Oct, [facility] [place] [facility] [address] [id number] [place] [address]- [address]116 Oct, [facility] [place] [facility] [address] [id number] [place] [address] Oct, [facility] [place] [facility] [address] [id number] [place] [address] Oct, [facility] [place] [facility] [address] [id number] [place] [address] 8573 15 Oct, 2013 [facility] [place] [facility] [address] [id number] [place] [address]- 3534 14 Oct, 2013 [facility] [place] [facility] [address] [id number] [place] [address]- 3653 Oct, [facility] [place] [facility] [address] [id number] [place] [address]- 9453 Oct, [facility] [place] [facility] [address] [id number] [place] [address]- 6357 Oct, [facility] [place] [facility] [address] [id number] [place] [address]- 0824 Oct, [facility] [place] [facility] [address] [id number] [place] [address]- 7367 Oct, [facility] [place] [facility] [address] [id number] [place] [address]- 9269 Sep, [facility] [place] [facility] [address] [id number] [place] [address] 3879 Sep, [facility] [place] [facility] [address] [id number] [place] [address]- 6910 Sep, [facility] [place] [facility] [address] [id number] [place] [address]- 5787 Sep, [facility] [place] [facility] [address] [id number] [place] [address]- 8498 Sep, [facility] [place] [facility] [address] [id number] [place] [address]- 9212 Sep, [facility] [place] [facility] [address] [id number] [place] [address]- 8139 Sep, [facility] [place] [facility] [address] [id number] [place] [address]- 1945 Sep, [facility] [place] [facility] [address] [id number] [place] [address]- 2059 17 Sep, 2013 [facility] [place] [facility] [address] [id number] [place] [address]- 5056 Sep, [facility] [place] [facility] [address] [id number] [place] [address]- 8674 Sep, [facility] [place] [facility] [address] [id number] [place] [address]- 7888 Sep, [facility] [place] [facility] [address] [id number] [place] [address]- 1824 Sep, [facility] [place] [facility] [address] [id number] [place] [address]- 0439 Sep, [facility] [place] [facility] [address] [id number] [place] [address]- 8284 Sep, [facility] [place] [facility] [address] [id number] [place] [address]- 7599 Sep, [facility] [place] [facility] [address] [id number] [place] [address]- 7740 Sep, [facility] [place] [facility] [address] [id number] [place] [address]- 6997 Sep, [facility] [place] [facility] [address] [id number] [place] [address]- 1555 Sep, [facility] [place] [facility] [address] [id number] [place] [address]- 8067 Sep, [facility] [place] [facility] [address] [id number] [place] [address]- 5112 Sep, [facility] [place] [facility] [address] [id number] [place] [address]- 8961 Sep, [facility] [place] [facility] [address] [id number] [place] [address]- 1995 August, [facility] [place] [facility] [address] [id number] [place] [address]- 3375 August, [facility] [place] [facility] [address] [id number] [place] [address]- 4753 August, [facility] [address] [id number] [place] [address]- 3003 August, [facility] [place] [facility] [address] [id number] [place] [address]- 1226 August, [facility] [place] [facility] [address] [id number] [place] [address]- 6897 August, [facility] [place] [facility] [address] [id number] [place] [address]- 7511 August, [facility] [place] [facility] [address] [id number] [place] [address]- 7483 August, [facility] [place] [facility] [address] [id number] [place] [address]- 9467 August, [facility] [place] [facility] [address] [id number] [place] [address]- 5973 August, [facility] [place] [facility] [address] [id number] [place] [address]- 2806 August, [facility] [place] [facility] [address] [id number] [place] [address]- 5620 August, [facility] [place] [facility] [address] [id number] [place] [address]- 4222 August, [facility] [place] [facility] [address] [id number] [place] [address]- 9048 August, [facility] [place] [facility] [address] [id number] [place] [address]- 5046 August, [facility] [place] [facility] [address] [id number] [place] [address]- 9564 August, [facility] [place] [facility] [address] [id number] [place] [address]- 7535 August, [facility] [place] [facility] [address] [id number] [place] [address]- 4811 August, [facility] [place] [facility] [address] [id number] [place] [address]- 6041 Jul, [facility] [place] [facility] [address] [id number] [place] [address]- 0354 Jul, [facility] [place] [facility] [address] [id number] [place] [address]- 6844 Jul, [facility] [place] [facility] [address] [id number] [place] [address]- 3152 Jul, [facility] [place] [facility] [address] [id number] [place] [address]- 4307 Jul, [facility] [place] [facility] [address] [id number] [place] [address]- 7074 Jul, [facility] [place] [facility] [address] [id number] [place] [address]- 4383 Jul, [facility] [place] [facility] [address] [id number] [place] [address]- 8834 Jul, [facility] [place] [facility] [address] [id number] [place] [address]- 8420 Jul, [facility] [place] [facility] [address] [id number] [place] [address]- 9195 Jul, [facility] [place] [facility] [address] [id number] [place] [address]- 1909 Jul, [facility] [place] [facility] [address] [id number] [place] [address]- 9376 Jul, [facility] [place] [facility] [address] [id number] [place] [address]- 1436 Jul, [facility] [place] [facility] [address] [id number] [place] [address]- 7957 Jul, [facility] [place] [facility] [address] [id number] [place] [address]- 3725 Jul, [facility] [place] [facility] [address] [id number] [place] [address]- 5904 Jul, [facility] [place] [facility] [address] [id number] [place] [address]- 4856 17 Jul, 2013 [facility] [place] [facility] [address] [id number] [place] [address]- 7447 16 Jul, 2013 [facility] [place] [facility] [address] [id number] [place] [address]- 2800 16 Jul, 2013 [facility] [place] [facility] [address] [id number] [place] [address]- 3489 15 Jul, 2013 [facility] [place] [facility] [address] [id number] [place] [address]- 8751 15 Jul, 2013 [facility] [place] [facility] [address] [id number] [place] [address]- 2201 14 Jul, 2013 [facility] [place] [facility] [address] [id number] [place] [address]- 7619 Jul, [facility] [place] [facility] [address] [id number] [place] [address]- 7705 Jul, [facility] [place] [facility] [address] [id number] [place] [address]- 7281 Jul, [facility] [place] [facility] [address] [id number] [place] [address]- 6468 Jul, [facility] [place] [facility] [address] [id number] [place] [address]- 2347 Jul, [facility] [place] [facility] [address] [id number] [place] [address]- 6049 Jul, [facility] [place] [facility] [address] [id number] [place] [address]- 9695 Jul, [facility] [place] [facility] [address] [id number] [place] [address]- 2703 Jun, [facility] [place] [facility] [address] [id number] [place] [address]- 8240 Jun, [facility] [place] [facility] [address] [id number] [place] [address]- 0918 17 Jun, 2013 [facility] [place] [facility] [address] [id number] [place] [address]- 3614 17 Jun, 2013 [facility] [place] [facility] [address] [id number] [place] [address]- 0742 Jun, [facility] [place] [facility] [address] [id number] [place] [address]- 5845 Jun, [facility] [place] [facility] [address] [id number] [place] [address]- 1117 Jun, [facility] [place] [facility] [address] [id number] [place] [address]- 5649 Jun, [facility] [place] [facility] [address] [id number] [place] [address]- 4440 Jun, [facility] [place] [facility] [address] [facility] [id number] [place] [address]- 8163 Jun, [facility] [place] [facility] [address] [id number] [place] [address]- 1312 Jun, [facility] [place] [facility] [address] [id number] [place] [address]- 4938 Jun, [facility] [place] [facility] [address] [facility] [id number] [place] [address]- 8154 May, [facility] [place] [facility] [address] [id number] [place] [address]- 7622 May, [facility] [place] [facility] [address] [id number] [place] [address]- 7233 May, [facility] [place] [facility] [address] [id number] [place] [address]- 3031 May, [facility] [place] [facility] [address] [id number] [place] [address]- 6745 May, [facility] [place] [facility] [address] [facility] [id number] [place] [address]- 7672 May, [facility] [place] [facility] [address] [id number] [place] [address]- 6490 May, [facility] [place] [facility] [address] [id number] [place] [address]- 5727 May, [facility] [place] [facility] [address] [id number] [place] [address]- 7576 May, [facility] [place] [facility] [address] [id number] [place] [address]- 3316 May, [facility] [place] [facility] [address] [id number] [place] [address]- 5056 Apr, [facility] [place] [facility] [address] [id number] [place] [address]- 8991 Apr, [facility] [place] [facility] [address] [id number] [place] [address]- 2307 Apr, [facility] [place] [facility] [address] [id number] [place] [address]- 1300 Apr, [facility] [place] [facility] [address] [id number] [place] [address]- 1026 Apr, [facility] [place] [facility] [address] [id number] [place] [address]- 9127 Apr, [facility] [place] [facility] [address] [id number] [place] [address]- 7255 Apr, [facility] [place] [facility] [address] [id number] [place] [address]- 2446 Apr, [facility] [place] [facility] [address] [id number] [place] [address]- 8138 Apr, [facility] [place] [facility] [address] [id number] [place] [address]- 2187 Apr, [facility] [place] [facility] [address] [id number] [place] [address]- 0701 Mar, [facility] [place] [facility] [address] [id number] [address]- 1372 Mar, [facility] [place] [facility] [address] [id number] [place] [address]- 6544 Mar, [facility] [place] [facility] [address] [id number] [place] [address]- 0427 Mar, [facility] [place] [facility] [address] [id number] [place] [address]- 5746 Mar, [facility] [place] [facility] [address] [id number] [place] [address]- 8789 Mar, [facility] [place] [facility] [address] [id number] [place] [address]- 8445 Feb, [facility] [place] [facility] [address] [id number] [place] [address]- 5427 Feb, [facility] [place] [facility] [address] [facility] [id number] [place] [address]- 4782 Feb, [facility] [place] [facility] [address] [id number] [place] [address]- 8590 Jan, [facility] [place] [facility] [address] [facility] [id number] [place] [address]- 2981 30 Jan, 2013 [facility] [place] [facility] [address] [facility] [id number] [place] [address]- 6182 Jan, [facility] [place] [facility] [address] [id number] [address]- 0390 28 Jan, 2013 [facility] [place] [facility] [address] [id number] [place] [address]- 0558 15 Jan, 2013 [facility] [place] [facility] [address] [id number] [place] [address]- 3475 15 Jan, 2013 [facility] [place] [facility] [address] [facility] [id number] [place] [address]- 4244 Jan, [facility] [place] [facility] [address] [facility] [id number] [place] [address]- 6216 11 Jan, 2013 [facility] [place] [facility] [address] [id number] [place] [address]- 2037 Jan, [facility] [place] [facility] [address] [id number] [place] [address]- 9778 Jan, [facility] [place] [facility] [address] [id number] [place] [address]- 3876 30 Dec, 2012 [facility] [place] [facility] [address] [id number] [place] [address]- 9586 25 Dec, 2012 [facility] [place] [facility] [address] [id number] [place] [address]- 2346 11 Dec, 2012 [facility] [place] [facility] [address] [id number] [place] [address]- 9744 Dec, 2012 [facility] [place] [facility] [address] [id number] [place] [address]- 9925 05 Dec, 2012 [facility] [place] [facility] [address] [id number] [place] [address]- 6737 Dec, 2012 [facility] [place] [facility] [address] [id number] [place] [address]- 7648 Nov, [facility] [place] [facility] [address] [id number] [place] [address]- 3463 Nov, [facility] [place] [facility] [address] [id number] [place] [address]- 0159 Nov, [facility] [place] [facility] [address] [id number] [place] [address]- 3825 Nov, [facility] [place] [facility] [address] [id number] [place] [address] 2543 Nov, [facility] [place] [facility] [address] [id number] [place] [address]- 7586 Nov, [facility] [place] [facility] [address] [id number] [place] [address]- 2547 Nov, [facility] [place] [facility] [address] [id number] [place] [address]- 1822 Nov, [facility] [address] [id number] [place] [address]- 4237 Nov, [facility] [place] [facility] [address] [id number] [place] [address]- 4020 Nov, [facility] [place] [facility] [address] [id number] [place] [address]- 2870 Nov, [facility] [place] [facility] [address] [id number] [place] [address]- 8774 Nov, [facility] [place] [facility] [address] [id number] [place] [address]- 2408 Oct, [facility] [place] [facility] [address] [id number] [place] [address]- 7367 Oct, [facility] [place] [facility] [address] [id number] [place] [address]- 4216 Oct, [facility] [place] [facility] [address] [id number] [place] [address]- 8186 Sep, [facility] [place] [facility] [address] [id number] [place] [address]- 9540 Sep, [facility] [place] [facility] [address] [id number] [place] [address]- 7794 Sep, [facility] [place] [facility] [address] [id number] [place] [address]- 4227 August, [facility] [place] [facility] [address] [id number] [place] [address]- 2224 August, [facility] [place] [facility] [address] [id number] [place] [address]- 7694 August, [facility] [place] [facility] [address] [id number] [place] [address]- 2292 August, [facility] [place] [facility] [address] [id number] [place] [address]- 9456 August, [facility] [place] [facility] [address] [id number] [place] [address]- 8904 August, [facility] [address] [id number] [place] [address]- 8263 30 Jul, 2012 [facility] [place] [facility] [address] [id number] [place] [address]- 6911 15 Jul, 2012 [facility] [address] [id number] [place] [address]- 1118 Jul, [facility] [place] [facility] [address] [id number] [place] [address]- 1495 Jul, [facility] [address] [id number] [place] [address]- 3089 Jul, [facility] [place] [facility] [address] [id number] [place] [address]- 1922 Jul, [facility] [address] [id number] [place] [address]- 8676 2012 [facility] [address] [id number] [place] [address]- 4976 20 Jun, 2012 [facility] [address] [id number] [place] [address]- 4422 18 Jun, 2012 [facility] [address] [id number] [place] [address]- 8731 14 Jun, 2012 [facility] [place] [facility] [address] [id number] [place] [address]- 7403 04 Jun, 2012 [facility] [place] [facility] [address] [id number] [place] [address]- 4783 May, [facility] [place] [facility] [address] [id number] [place] [address]- 3504 12 May, 2012 [facility] [place] [facility] [address] [id number] [place] [address]- 7864 May, [facility] [place] [facility] [address] [id number] [place] [address]- 3569 08 May, 2012 [facility] [address] [id number] [place] [address]- 9674 Apr, [facility] [place] [facility] [address] [id number] [place] [address]- 0586 Apr, [facility] [place] [facility] [address] [id number] [place] [address]- 7537 Apr, [facility] [place] [facility] [address] [id number] [place] [address]- 9959 Mar, [facility] [place] [facility] [address] [id number] [place] [address]- 7740 Mar, [facility] [place] [facility] [address] [id number] [place] [address]- 0232 Mar, [facility] [place] [facility] [address] [id number] [place] [address]- 4517 Mar, [facility] [place] [facility] [address] [id number] [place] [address]- 4190 Mar, [facility] [place] [facility] [address] [id number] [place] [address]- 6236 Mar, [facility] [place] [facility] [address] [id number] [place] [address]- 0216 Mar, [facility] [place] [facility] [address] [id number] [place] [address]- 4086 Mar, [facility] [place] [facility] [address] [id number] [address]- 9633 Feb, [facility] [place] [facility] [address] [id number] [place] [address]- 1732 Feb, [facility] [place] [facility] [address] [id number] [place] [address]- 5074 Feb, [facility] [place] [facility] [address] [id number] [place] [address]- 5496 Feb, [facility] [place] [facility] [address] [id number] [address]- 0147 Feb, [facility] [place] [facility] [address] [id number] [place] [address]- 8993 Feb, [facility] [place] [facility] [address] [id number] [place] [address] Feb, [facility] [place] [facility] [address] [facility] [id number] [place] [address] Feb, [facility] [place] [facility] [address] [id number] [place] [address] Feb, [facility] [place] [facility] [address] [id number] [place] [address] Feb, [facility] [place] [facility] [address] [facility] [id number] [place] [address] 14[address] Feb, [facility] [place] [facility] [id number] [place] [address] Feb, [facility] [place] [facility] [address] [facility] [id number] [place] [address] Feb, [facility] [place] [facility] [address] [facility] [id number] [place] [address] Feb, [facility] [place] [facility] [address] [facility] [id number] [place] [address]199 Feb, [facility] [place] [facility] [address] [facility] [id number] [address] Feb, [facility] [place] [facility] [address] [facility] [id number] [place] [address]67 Feb, [facility] [place] [facility] [address] [facility] [id number] [place] [address] Feb, [facility] [place] [facility] [address] [facility] [id number] [place] [address] Jan, [facility] [place] [facility] [address] [facility] [id number] [place] [address] Jan, [facility] [place] [facility] [address] [id number] [place] [address] 22 Jan, 2011 [facility] [place] [facility] [address] [id number] [place] [address] 1336 20 Jan, 2012 [facility] [place] [facility] [address] [id number] [place] [address]- 1073 20 Jan, 2012 [facility] [place] [facility] [address] [id number] [place] [address]- [address] 19 Jan, 2012 [facility] [place] [facility] [address] [id number] [place] [address]- [address]26 18 Jan, 2012 [facility] [place] [facility] [address] [id number] [place] [address]- 8106 18 Jan, 2012 [facility] [place] [facility] [address] [id number] [place] [address]- 8231 15 Jan, 2012 [facility] [place] [facility] [address] [id number] [place] [address]30 15 Jan, 2012 [facility] [place] [facility] [address] [id number] [place] [address] 11 Jan, 2012 [facility] [place] [facility] [address] [id number] [place] [address]382 11 Jan, 2012 [facility] [place] [facility] [address] [facility] [id number] [place] [address] 1338 10 Jan, 2012 [facility] [place] [facility] [address] [id number] [place] [address]- [address] 09 Jan, 2012 [facility] [place] [facility] [address] [id number] [place] [address]- [address]409 02 Jan, 2012 [facility] [place] [facility] [address] [id number] [place] [address]- 2676 29 Dec, 2011 [facility] [place] [facility] [address] [id number] [place] [address]- 7936 28 Dec, 2011 [facility] [place] [facility] [address] [id number] [place] [address]702 Dec, [facility] [place] [facility] [address] [id number] [place] [address]90 Dec, [facility] [place] [facility] [address] [id number] [place] [address]- 4[address] Nov, [facility] [place] [facility] [address] [id number] [place] [address] 3219 Nov, [facility] [place] [facility] [address] [id number] [place] [address]- 3983 Nov, [facility] [place] [facility] [address] [id number] [place] [address]- 8795 Nov, [facility] [place] [facility] [address] [id number] [place] [address] 2834 Nov, [facility] [place] [facility] [address] [id number] [place] [address] 9900 Nov, [facility] [place] [facility] [address] [id number] [place] [address]- 6178 Nov, [facility] [place] [facility] [address] [id number] [place] [address]- 9105 Nov, [facility] [place] [facility] [address] [id number] [place] [address]- 6058 Nov, [facility] [place] [facility] [address] [id number] [place] [address]- 7148 Nov, [facility] [place] [facility] [address] [id number] [place] [address]- 8285 Nov, [facility] [place] [facility] [address] [id number] [place] [address]- 9590 Oct, [facility] [place] [facility] [address] [id number] [place] [address]- [address]114 Oct, [facility] [place] [facility] [address] [id number] [place] [address]- [address]90 Oct, [facility] [place] [facility] [address] [id number] [place] [address]- 4491 Oct, [facility] [place] [facility] [address] [id number] [place] [address]- 7095 Oct, [facility] [place] [facility] [address] [id number] [place] [address]- 7936 Oct, [facility] [place] [facility] [address] [id number] [place] [address]- 8736 Oct, [facility] [place] [facility] [address] [id number] [place] [address]- 6192 Oct, [facility] [place] [facility] [address] [id number] [place] [address]- 6735 Sep, [facility] [place] [facility] [address] [id number] [place] [address]- 2555 Sep, [facility] [place] [facility] [address] [id number] [place] [address]- 9639 Sep, [facility] [place] [facility] [address] [id number] [place] [address]- 6027 Sep, [facility] [place] [facility] [address] [id number] [place] [address]- 9799 Sep, [facility] [place] [facility] [address] [id number] [place] [address]- 9288 Sep, [facility] [place] [facility] [address] [id number] [place] [address]- 4247 Sep, [facility] [place] [facility] [address] [id number] [place] [address]- 6819 August, [facility] [place] [facility] [address] [id number] [place] [address]- 0883 August, [facility] [place] [facility] [address] [id number] [place] [address]- 0099 August, [facility] [place] [facility] [address] [id number] [place] [address]- 9327 August, [facility] [place] [facility] [address] [id number] [place] [address]- 6743 August, [facility] [address] [id number] [place] [address]- 0093 August, [facility] [place] [facility] [address] [id number] [place] [address]- 0216 August, [facility] [address] [id number] [place] [address]- 3170 August, [facility] [address] [id number] [place] [address]- [address] Jul, [facility] [place] [facility] [address] [id number] [place] [address]- 6653 17 Jul, 2011 [facility] [address] [id number] [place] [address]- 5468 Jul, [facility] [address] [id number] [place] [address]- 2137 Jul, [facility] [address] [id number] [place] [address]- 6787 Jul, [facility] [address] [id number] [place] [address]- 6950 28 Jun, 2011 [facility] [place] [facility] [address] [id number] [place] [address] 2011 [facility] [place] [facility] [address] [id number] [place] [address] 20 Jun, 2011 [facility] [place] [facility] [address] [id number] [place] [address] 19 Jun, 2011 [facility] [place] [facility] [address] [id number] [place] [address] 12 Jun, 2011 [facility] [place] [facility] [address] [id number] [place] [address] Jun, [facility] [place] [facility] [address] [id number] [place] [address] Jun, [facility] [address] [id number] [place] [address] Jun, [facility] [address] [id number] [place] [address] Jun, [facility] [address] [id number] [place] [address] May, [facility] [address] [id number] [place] [address] May, [facility] [address] [id number] [place] [address] May, [facility] [address] [id number] [place] [address] May, [facility] [address] [id number] [place] [address] May, [facility] [address] [id number] [place] [address] May, [facility] [address] [id number] [place] [address] May, [facility] [address] [facility] [id number] [place] [address] May, [facility] [address] [facility] [id number] [place] [address] Apr, [facility] [place] [facility] [address] [id number] [place] [address] Apr, [facility] [place] [facility] [address] [id number] [place] [address] Apr, [facility] [place] [facility] [address] [id number] [place] [address] Apr, [facility] [address] [facility] [id number] [address] Apr, [facility] [address] [id number] [place] [address] 05 Apr, 2011 [facility] [address] [id number] [place] [address] Mar, [facility] [place] [facility] [address] [id number] [place] [address] Mar, [facility] [place] [facility] [address] [id number] [place] [address] Mar, [facility] [address] [id number] [place] [address] Mar, [facility] [place] [facility] [address] [id number] [place] [address] 15 Mar, 2011 [facility] [address] [id number] [place] [address] Mar, [facility] [place] [facility] [address] [id number] [place] [address] Mar, [facility] [place] [facility] [address] [id number] [place] [address] Mar, [facility] [place] [facility] [address] [id number] [place] [address] Mar, [facility] [place] [facility] [address] [id number] [place] [address] Mar, [facility] [place] [facility] [address] [id number] [place] [address] Mar, [facility] [place] [facility] [address] [id number] [place] [address] Mar, [facility] [place] [facility] [address] [id number] [place] [address] Mar, [facility] [place] [facility] [address] [id number] [place] [address] Feb, [facility] [place] [facility] [address] [id number] [place] [address] Feb, [facility] [place] [facility] [address] [id number] [place] [address] 17 Feb, 2011 [facility] [place] [facility] [address] [id number] [place] [address] Feb, [facility] [place] [facility] [address] [id number] [place] [address] Feb, [facility] [place] [facility] [address] [id number] [place] [address] Feb, [facility] [place] [facility] [address] [id number] [place] [address] Feb, [facility] [place] [facility] [address] [id number] [place] [address] Jan, [facility] [place] [facility] [address] [id number] [place] [address] Jan, [facility] [place] [facility] [address] [id number] [place] [address] Jan, [facility] [place] [facility] [address] [id number] [place] [address] Nov, [facility] [place] [facility] [address] [id number] [place] [address] Mar, [facility] [place] [facility] [address] [id number] [address] Mar, [facility] [place] [facility] [address] [id number] [place] [address] 20 Mar, 2010 [facility] [place] [facility] [address] [id number] [place] [address] 13 Mar, 2010 [facility] [place] [facility] [address] [id number] [place] [address] 07 Mar, 2010 [facility] [place] [facility] [address] [id number] [place] [address] 30 Feb, 2010 [facility] [place] [facility] [address] [facility] [id number] [place] [address] 30 Feb, 2010 [facility] [address] [facility] [id number] [address] 24 Feb, 2010 [facility] [address] [facility] [id number] [address] 19 Feb, 2010 [facility] [address] [facility] [id number] [place] [address] 19 Feb, 2010 [facility] [address] [facility] [id number] [place] [address] 15 Feb, 2010 IMMUNIZATIONS No Known Immunizations SOCIAL HISTORY Never Assessed REASON FOR VISIT appointments PLAN OF CARE VITAL SIGNS MEDICATIONS Unknown [...] Mastectomy 02/01/2017 Hospitalization History surgeries Hospitalization History [facility] ED 10/06/2017
--- OUTSIDE RECORDS SUMMARY | 2017-12-22 03:41 | XMS REPORT ---
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 [id number] [place] [address]- 8587 Jun, [facility] [place] [facility] [address] [id number], [place] [address]- 3568 Jun, [facility] [place] [facility] [address] [id number], [place] [address]- 4628 19 Jun, 2014 [facility] [place] [facility] [address] [id number] [place] [address]- 9890 18 Jun, 2014 [facility] [place] [facility] [address] [id number] [place] [address]- 7998 18 Jun, 2014 [facility] [place] [facility] [address] [id number] [place] [address]- 8167 18 Jun, 2014 [facility] [place] [facility] [address] [id number] [place] [address]- 8011 18 Jun, 2014 [facility] [place] [facility] [address] [id number] [place] [address]- 1211 17 Jun, 2014 [facility] [place] [facility] [address] [id number] [place] [address]- 0526 17 Jun, 2014 [facility] [place] [facility] [address] [id number] [place] [address]- 2821 17 Jun, 2014 [facility] [place] [facility] [address] [id number] [place] [address]- 5580 17 Jun, 2014 [facility] [place] [facility] [address] [id number] [place] [address]- 5012 13 Jun, 2014 [facility] [place] [facility] [address] [id number] [place] [address]- 0889 13 Jun, 2014 [facility] [place] [facility] [address] [id number] [place] [address]- 2252 12 Jun, 2014 [facility] [place] [facility] [address] [id number] [place] [address]- 7480 12 Jun, 2014 [facility] [place] [facility] [address] [id number] [place] [address]- 3670 10 Jun, 2014 [facility] [place] [facility] [address] [id number] [place] [address]- 0998 10 Jun, 2014 [facility] [place] [facility] [address] [id number] [place] [address]- 0306 10 Jun, 2014 [facility] [place] [facility] [address] [id number] [place] [address]- 2689 10 Jun, 2014 [facility] [place] [facility] [address] [id number] [place] [address]- 9248 06 Jun, 2014 [facility] [place] [facility] [address] [id number] [place] [address]- 3485 06 Jun, 2014 [facility] [place] [facility] [address] [id number] [place] [address]- 9533 Jun, 2014 [facility] [place] [facility] [address] [id number] [place] [address]- 5561 Jun, [facility] [place] [facility] [address] [id number] [place] [address]- 0371 Jun, [facility] [place] [facility] [address] [id number] [place] [address]- 5061 Jun, [facility] [place] [facility] [address] [id number] [place] [address]- 6075 May, 2014 [facility] [place] [facility] [address] [id number] [place] [address]- 1210 May, 2014 [facility] [place] [facility] [address] [id number] [place] [address]- 8471 May, 2014 [facility] [place] [facility] [address] [id number] [place] [address]- 7711 May, 2014 [facility] [place] [facility] [address] [id number] [place] [address]- 3328 May, 2014 [facility] [place] [facility] [address] [id number] [place] [address]- 9760 May, 2014 [facility] [place] [facility] [address] [id number] [place] [address]- 7094 May, 2014 [facility] [place] [facility] [address] [id number] [place] [address]- 5334 May, 2014 [facility] [place] [facility] [address] [id number] [place] [address]- 0369 May, 2014 [facility] [place] [facility] [address] [id number] [place] [address]- 4253 May, 2014 [facility] [place] [facility] [address] [id number] [place] [address]- 0790 May, 2014 [facility] [place] [facility] [address] [facility] [id number] [place] [address]- 0473 May, 2014 [facility] [place] [facility] [address] [id number] [place] [address]- 9089 05 May, 2014 [facility] [place] [facility] [address] [id number] [place] [address]- 1815 May, [facility] [place] [facility] [address] [id number] [place] [address]- 3336 May, [facility] [place] [facility] [address] [id number] [place] [address]- 2365 May, [facility] [place] [facility] [address] [id number] [place] [address]- 4376 Apr, [facility] [place] [facility] [address] [id number] [place] [address]- 7544 Apr, [facility] [place] [facility] [address] [id number] [place] [address]- 7493 Apr, [facility] [place] [facility] [address] [id number] [place] [address]- 7333 Apr, [facility] [place] [facility] [address] [id number] [place] [address]- 1402 Apr, [facility] [place] [facility] [address] [id number] [place] [address]- 7819 Apr, [facility] [place] [facility] [address] [id number] [place] [address]- 2119 Apr, [facility] [place] [facility] [address] [id number] [place] [address]- 3546 Apr, [facility] [place] [facility] [address] [id number] [place] [address]- 0064 Apr, [facility] [place] [facility] [address] [id number] [place] [address]- 1133 Apr, [facility] [place] [facility] [address] [id number] [place] [address]- 2047 Apr, [facility] [place] [facility] [address] [id number] [place] [address]- 2986 Apr, [facility] [place] [facility] [address] [id number] [place] [address]- 5799 Apr, [facility] [place] [facility] [address] [id number] [place] [address]- 6306 Apr, [facility] [place] [facility] [address] [id number] [place] [address]- 0516 Apr, [facility] [place] [facility] [address] [id number] [place] [address]- 3813 Mar, [facility] [place] [facility] [address] [id number] [place] [address]- 1161 Mar, [facility] [place] [facility] [address] [id number] [place] [address]- 9411 Mar, [facility] [place] [facility] [address] [id number] [place] [address]- 4579 Mar, [facility] [place] [facility] [address] [id number] [place] [address]- 0176 Mar, [facility] [place] [facility] [address] [id number] [place] [address]- 8076 Mar, [facility] [place] [facility] [address] [id number] [place] [address]- 4527 15 Mar, 2014 [facility] [place] [facility] [address] [id number] [place] [address]- 1327 15 Mar, 2014 [facility] [place] [facility] [address] [id number] [address]- 3923 15 Mar, 2014 [facility] [place] [facility] [address] [id number] [place] [address]- 6586 15 Mar, 2014 [facility] [place] [facility] [address] [id number] [place] [address]- 4197 15 Mar, 2014 [facility] [place] [facility] [address] [id number] [place] [address] 15 Mar, 2014 [facility] [place] [facility] [address] [id number] [place] [address] Mar, [facility] [place] [facility] [address] [id number] [place] [address] Mar, [facility] [place] [facility] [address] [id number] [place] [address] Mar, [facility] [place] [facility] [address] [id number] [place] [address] Mar, [facility] [place] [facility] [address] [id number] [place] [address] Mar, [facility] [place] [facility] [address] [id number] [place] [address] Mar, [facility] [place] [facility] [address] [id number] [place] [address] Feb, [facility] [place] [facility] [address] [id number] [place] [address] Feb, [facility] [place] [facility] [address] [id number] [place] [address] Feb, [facility] [place] [facility] [address] [id number] [place] [address] Feb, [facility] [place] [facility] [address] [facility] [id number] [place] [address] Feb, [facility] [place] [facility] [address] [id number] [place] [address] Feb, [facility] [place] [facility] [address] [id number] [place] [address] Feb, [facility] [place] [facility] [address] [id number] [place] [address] Feb, [facility] [place] [facility] [address] [id number] [place] [address] Jan, [facility] [place] [facility] [address] [id number] [place] [address] Jan, [facility] [place] [facility] [address] [id number] [place] [address]- [address] Jan, [facility] [place] [facility] [address] [id number] [place] [address] Jan, [facility] [place] [facility] [address] [id number] [place] [address]- [address] Jan, [facility] [place] [facility] [address] [id number] [place] [address] Jan, [facility] [place] [facility] [address] [id number] [place] [address]- [address] Jan, [facility] [place] [facility] [address] [id number] [place] [address]- [address]65 Jan, [facility] [place] [facility] [address] [id number] [place] [address] Jan, [facility] [place] [facility] [address] [id number] [place] [address] 2021 Jan, [facility] [place] [facility] [address] [id number] [place] [address]- [address] Jan, [facility] [place] [facility] [address] [id number] [place] [address] Jan, [facility] [place] [facility] [address] [id number] [place] [address] Jan, [facility] [place] [facility] [address] [id number], [place] [address] Jan, [facility] [place] [facility] [address] [id number] [place] [address]- [address] Jan, [facility] [place] [facility] [address] [id number] [place] [address]- [address] 16 Jan, 2014 [facility] [place] [facility] [address] [id number], [place] [address] Jan, [facility] [place] [facility] [address] [id number], [place] [address] 13 Jan, 2014 [facility] [place] [facility] [address] [id number] [place] [address]46 29 Sep, 2013 [facility] [place] [facility] [address] [id number] [place] [address] 2546 29 Dec, 2013 [facility] [place] [facility] [address] [id number] [place] [address] 2546 26 Dec, 2013 [facility] [place] [facility] [address] [id number] [place] [address] 2546 26 Dec, 2013 [facility] [place] [facility] [address] [id number] [place] [address] 2549 26 Dec, 2013 [facility] [place] [facility] [address] [id number] [place] [address]- [address] 26 Dec, 2013 [facility] [place] [facility] [address] [id number] [place] [address]- [address] 23 Dec, 2013 [facility] [place] [facility] [address] [id number] [place] [address]- [address] 23 Dec, 2013 [facility] [place] [facility] [address] [id number] [place] [address] 2547 22 Dec, 2013 [facility] [place] [facility] [address] [id number] [place] [address] 2540 22 Dec, 2013 [facility] [place] [facility] [address] [id number], [place] [address] 2548 16 Dec, 2013 [facility] [place] [facility] [address] [id number], [place] [address]- [address] 16 Dec, 2013 [facility] [place] [facility] [address] [id number], [place] [address] 2546 15 Dec, 2013 [facility] [place] [facility] [address] [id number] [place] [address] 2546 15 Dec, 2013 [facility] [place] [facility] [address] [id number] [place] [address]- [address] 09 Dec, 2013 [facility] [place] [facility] [address] [id number] [place] [address] Dec, [facility] [place] [facility] [address] [id number] [place] [address] Dec, [facility] [place] [facility] [address] [id number] [place] [address] Nov, [facility] [place] [facility] [address] [id number] [place] [address] Nov, [facility] [place] [facility] [address] [id number] [place] [address]- [address] Nov, [facility] [place] [facility] [address] [id number] [place] [address] Nov, [facility] [place] [facility] [address] [id number] [place] [address]- 8720 Nov, [facility] [place] [facility] [address] [id number] [place] [address]- [address] Nov, [facility] [place] [facility] [address] [id number] [place] [address]- [address] Nov, [facility] [place] [facility] [address] [id number] [place] [address]- [address] Nov, [facility] [place] [facility] [address] [address] [id number] [place] [address] Nov, [facility] [place] [facility] [address] [id number] [place] [address] Nov, [facility] [place] [facility] [address] [id number] [place] [address]647 Nov, [facility] [place] [facility] [address] [id number] [place] [address] 3783 Nov, [facility] [place] [facility] [address] [id number] [place] [address]- 8360 Nov, [facility] [place] [facility] [address] [id number] [place] [address]- 1776 Nov, [facility] [place] [facility] [address] [id number] [place] [address] 1331 Nov, [facility] [place] [facility] [address] [id number] [place] [address]- 2598 Nov, [facility] [place] [facility] [address] [id number] [place] [address]- 4827 Nov, [facility] [place] [facility] [address] [id number] [place] [address]- 8076 Nov, [facility] [place] [facility] [address] [id number] [place] [address]- 9320 Nov, [facility] [place] [facility] [address] [id number] [place] [address]- 5659 Nov, [facility] [place] [facility] [address] [id number] [place] [address]- 1835 Nov, [facility] [place] [facility] [address] [id number] [place] [address]- 0580 Oct, [facility] [place] [facility] [address] [id number] [place] [address] 1966 Oct, [facility] [place] [facility] [address] [id number] [place] [address]- 0369 Oct, [facility] [place] [facility] [address] [id number] [place] [address]- 2559 Oct, [facility] [place] [facility] [address] [id number] [place] [address]- 8475 Oct, [facility] [place] [facility] [address] [id number] [place] [address]- 5922 Oct, [facility] [place] [facility] [address] [id number] [place] [address]- 6743 Oct, [facility] [place] [facility] [address] [id number] [place] [address]- 0967 Oct, [facility] [place] [facility] [address] [id number] [place] [address]- 3014 15 Oct, 2013 [facility] [place] [facility] [address] [id number] [place] [address]- 2969 14 Oct, 2013 [facility] [place] [facility] [address] [id number] [place] [address]- 0508 Oct, [facility] [place] [facility] [address] [id number] [place] [address]- 3524 Oct, [facility] [place] [facility] [address] [id number] [place] [address]- 0767 Oct, [facility] [place] [facility] [address] [id number] [place] [address]- 2067 Oct, [facility] [place] [facility] [address] [id number] [place] [address]- 9635 Oct, [facility] [place] [facility] [address] [id number] [place] [address]- 2348 Sep, [facility] [place] [facility] [address] [id number] [place] [address]- 1492 Sep, [facility] [place] [facility] [address] [id number] [place] [address]- 5229 Sep, [facility] [place] [facility] [address] [id number] [place] [address]- 9642 Sep, [facility] [place] [facility] [address] [id number] [place] [address]- 4211 Sep, [facility] [place] [facility] [address] [id number] [place] [address]- 0514 Sep, [facility] [place] [facility] [address] [id number] [place] [address]- 6208 Sep, [facility] [place] [facility] [address] [id number] [place] [address]- 9623 Sep, [facility] [place] [facility] [address] [id number] [place] [address]- 6673 17 Sep, 2013 [facility] [place] [facility] [address] [id number] [place] [address]- 7635 Sep, [facility] [place] [facility] [address] [id number] [place] [address]- 5904 Sep, [facility] [place] [facility] [address] [id number] [place] [address]- 4130 Sep, [facility] [place] [facility] [address] [id number] [place] [address]- 5610 Sep, [facility] [place] [facility] [address] [id number] [place] [address]- 5383 Sep, [facility] [place] [facility] [address] [id number] [place] [address]- 7606 Sep, [facility] [place] [facility] [address] [id number] [place] [address]- 1695 Sep, [facility] [place] [facility] [address] [id number] [place] [address]- 1217 Sep, [facility] [place] [facility] [address] [id number] [place] [address]- 5645 Sep, [facility] [place] [facility] [address] [id number] [place] [address]- 0505 Sep, [facility] [place] [facility] [address] [id number] [place] [address]- 0326 Sep, [facility] [place] [facility] [address] [id number] [place] [address]- 5566 Sep, [facility] [place] [facility] [address] [id number] [place] [address]- 5407 Sep, [facility] [place] [facility] [address] [id number] [place] [address]- 7352 August, [facility] [place] [facility] [address] [id number] [place] [address]- 7118 August, [facility] [place] [facility] [address] [id number] [place] [address]- 6511 August, [facility] [address] [id number] [place] [address]- 4073 August, [facility] [place] [facility] [address] [id number] [place] [address]- 3298 August, [facility] [place] [facility] [address] [id number] [place] [address]- 8560 August, [facility] [place] [facility] [address] [id number] [place] [address]- 5833 August, [facility] [place] [facility] [address] [id number] [place] [address]- 9194 August, [facility] [place] [facility] [address] [id number] [place] [address]- 1356 August, [facility] [place] [facility] [address] [id number] [place] [address]- 3588 August, [facility] [place] [facility] [address] [id number] [place] [address]- 9538 August, [facility] [place] [facility] [address] [id number] [place] [address]- 1833 August, [facility] [place] [facility] [address] [id number] [place] [address]- 8076 August, [facility] [place] [facility] [address] [id number] [place] [address]- 5595 August, [facility] [place] [facility] [address] [id number] [place] [address]- 5275 August, [facility] [place] [facility] [address] [id number] [place] [address]- 8974 August, [facility] [place] [facility] [address] [id number] [place] [address]- 5324 August, [facility] [place] [facility] [address] [id number] [place] [address]- 8188 August, [facility] [place] [facility] [address] [id number] [place] [address]- 0415 Jul, [facility] [place] [facility] [address] [id number] [place] [address]- 1719 Jul, [facility] [place] [facility] [address] [id number] [place] [address]- 2910 Jul, [facility] [place] [facility] [address] [id number] [place] [address]- 9980 Jul, [facility] [place] [facility] [address] [id number] [place] [address]- 6209 Jul, [facility] [place] [facility] [address] [id number] [place] [address]- 5971 Jul, [facility] [place] [facility] [address] [id number] [place] [address]- 1516 Jul, [facility] [place] [facility] [address] [id number] [place] [address]- 7877 Jul, [facility] [place] [facility] [address] [id number] [place] [address]- 1608 Jul, [facility] [place] [facility] [address] [id number] [place] [address]- 7419 Jul, [facility] [place] [facility] [address] [id number] [place] [address]- 3905 Jul, [facility] [place] [facility] [address] [id number] [place] [address]- 0179 Jul, [facility] [place] [facility] [address] [id number] [place] [address]- 8029 Jul, [facility] [place] [facility] [address] [id number] [place] [address]- 7101 Jul, [facility] [place] [facility] [address] [id number] [place] [address]- 1166 Jul, [facility] [place] [facility] [address] [id number] [place] [address]- 6593 Jul, [facility] [place] [facility] [address] [id number] [place] [address]- 6574 17 Jul, 2013 [facility] [place] [facility] [address] [id number] [place] [address]- 0303 16 Jul, 2013 [facility] [place] [facility] [address] [id number] [place] [address]- 1660 16 Jul, 2013 [facility] [place] [facility] [address] [id number] [place] [address]- 1705 15 Jul, 2013 [facility] [place] [facility] [address] [id number] [place] [address]- 4617 15 Jul, 2013 [facility] [place] [facility] [address] [id number] [place] [address]- 3721 14 Jul, 2013 [facility] [place] [facility] [address] [id number] [place] [address]- 9431 Jul, [facility] [place] [facility] [address] [id number] [place] [address]- 0992 Jul, [facility] [place] [facility] [address] [id number] [place] [address]- 2231 Jul, [facility] [place] [facility] [address] [id number] [place] [address]- 1601 Jul, [facility] [place] [facility] [address] [id number] [place] [address]- 8284 Jul, [facility] [place] [facility] [address] [id number] [place] [address]- 1899 Jul, [facility] [place] [facility] [address] [id number] [place] [address]- 7560 Jul, [facility] [place] [facility] [address] [id number] [place] [address]- 8876 Jun, [facility] [place] [facility] [address] [id number] [place] [address]- 1559 Jun, [facility] [place] [facility] [address] [id number] [place] [address]- 6521 17 Jun, 2013 [facility] [place] [facility] [address] [id number] [place] [address]- 7780 17 Jun, 2013 [facility] [place] [facility] [address] [id number] [place] [address]- 4050 Jun, [facility] [place] [facility] [address] [id number] [place] [address]- 6607 Jun, [facility] [place] [facility] [address] [id number] [place] [address]- 8088 Jun, [facility] [place] [facility] [address] [id number] [place] [address]- 2534 Jun, [facility] [place] [facility] [address] [id number] [place] [address]- 4606 Jun, [facility] [place] [facility] [address] [facility] [id number] [place] [address]- 0686 Jun, [facility] [place] [facility] [address] [id number] [place] [address]- 4823 Jun, [facility] [place] [facility] [address] [id number] [place] [address]- 9865 Jun, [facility] [place] [facility] [address] [facility] [id number] [place] [address]- 2923 May, [facility] [place] [facility] [address] [id number] [place] [address]- 5491 May, [facility] [place] [facility] [address] [id number] [place] [address]- 5345 May, [facility] [place] [facility] [address] [id number] [place] [address]- 9874 May, [facility] [place] [facility] [address] [id number] [place] [address]- 2954 May, [facility] [place] [facility] [address] [facility] [id number] [place] [address]- 3823 May, [facility] [place] [facility] [address] [id number] [place] [address]- 7646 May, [facility] [place] [facility] [address] [id number] [place] [address]- 5365 May, [facility] [place] [facility] [address] [id number] [place] [address]- 9766 May, [facility] [place] [facility] [address] [id number] [place] [address]- 8539 May, [facility] [place] [facility] [address] [id number] [place] [address]- 0709 Apr, [facility] [place] [facility] [address] [id number] [place] [address]- 6687 Apr, [facility] [place] [facility] [address] [id number] [place] [address]- 4995 Apr, [facility] [place] [facility] [address] [id number] [place] [address]- 5711 Apr, [facility] [place] [facility] [address] [id number] [place] [address]- 7594 Apr, [facility] [place] [facility] [address] [id number] [place] [address]- 6478 Apr, [facility] [place] [facility] [address] [id number] [place] [address]- 6021 Apr, [facility] [place] [facility] [address] [id number] [place] [address]- 4397 Apr, [facility] [place] [facility] [address] [id number] [place] [address]- 0396 Apr, [facility] [place] [facility] [address] [id number] [place] [address]- 9488 Apr, [facility] [place] [facility] [address] [id number] [place] [address]- 2612 Mar, [facility] [place] [facility] [address] [id number], [place] [address]- 6162 Mar, [facility] [place] [facility] [address] [id number] [place] [address]- 1922 Mar, [facility] [place] [facility] [address] [id number] [place] [address]- 3623 Mar, [facility] [place] [facility] [address] [id number] [place] [address]- 7666 Mar, [facility] [place] [facility] [address] [id number] [place] [address]- 8651 Mar, [facility] [place] [facility] [address] [id number] [place] [address]- 9880 Feb, [facility] [place] [facility] [address] [id number] [place] [address]- 3881 Feb, [facility] [place] [facility] [address] [facility] [id number] [place] [address]- 2487 Feb, [facility] [place] [facility] [address] [id number] [place] [address]- 3757 Jan, [facility] [place] [facility] [address] [facility] [id number] [place] [address]- 9224 30 Jan, 2013 [facility] [place] [facility] [address] [facility] [id number] [place] [address]- 3858 Jan, [facility] [place] [facility] [address] [id number], [place] [address]- 7787 28 Jan, 2013 [facility] [place] [facility] [address] [id number], [place] [address]- 1977 15 Jan, 2013 [facility] [place] [facility] [address] [id number] [place] [address]- 3768 15 Jan, 2013 [facility] [place] [facility] [address] [facility] [id number], [place] [address]- 2701 Jan, [facility] [place] [facility] [address] [facility] [id number], [place] [address]- 8159 11 Jan, 2013 [facility] [place] [facility] [address] [id number] [place] [address]- 8788 Jan, [facility] [place] [facility] [address] [id number] [place] [address]- 7111 Jan, [facility] [place] [facility] [address] [id number] [place] [address]- 8506 30 Dec, 2012 [facility] [place] [facility] [address] [id number] [place] [address]- 2296 25 Dec, 2012 [facility] [place] [facility] [address] [id number] [place] [address]- 7039 11 Dec, 2012 [facility] [place] [facility] [address] [id number] [place] [address]- 6782 Dec, 2012 [facility] [place] [facility] [address] [id number] [place] [address]- 3947 05 Dec, 2012 [facility] [place] [facility] [address] [id number] [place] [address]- 0817 Dec, 2012 [facility] [place] [facility] [address] [id number] [place] [address]- 0094 Nov, [facility] [place] [facility] [address] [id number] [place] [address]- 6729 Nov, [facility] [place] [facility] [address] [id number] [place] [address]- 8658 Nov, [facility] [place] [facility] [address] [id number] [place] [address]- 9713 Nov, [facility] [place] [facility] [address] [id number] [place] [address] 2549 Nov, [facility] [place] [facility] [address] [id number] [place] [address]- 2486 Nov, [facility] [place] [facility] [address] [id number] [place] [address]- 2545 Nov, [facility] [place] [facility] [address] [id number] [place] [address]- 2850 Nov, [facility] [address] [id number] [place] [address]- 3426 Nov, [facility] [place] [facility] [address] [id number] [place] [address]- 5347 Nov, [facility] [place] [facility] [address] [id number] [place] [address]- 7417 Nov, [facility] [place] [facility] [address] [id number] [place] [address]- 5697 Nov, [facility] [place] [facility] [address] [id number] [place] [address]- 3761 Oct, [facility] [place] [facility] [address] [id number] [place] [address]- 9937 Oct, [facility] [place] [facility] [address] [id number] [place] [address]- 2699 Oct, [facility] [place] [facility] [address] [id number] [place] [address]- 5711 Sep, [facility] [place] [facility] [address] [id number] [place] [address]- 7203 Sep, [facility] [place] [facility] [address] [id number] [place] [address]- 3003 Sep, [facility] [place] [facility] [address] [id number] [place] [address]- 7323 August, [facility] [place] [facility] [address] [id number] [place] [address]- 2831 August, [facility] [place] [facility] [address] [id number] [place] [address]- 1132 August, [facility] [place] [facility] [address] [id number] [place] [address]- 6400 August, [facility] [place] [facility] [address] [id number] [place] [address]- 4052 August, [facility] [place] [facility] [address] [id number] [place] [address]- 5267 August, [facility] [address] [id number] [place] [address]- 6435 30 Jul, 2012 [facility] [place] [facility] [address] [id number] [place] [address]- 9743 15 Jul, 2012 [facility] [address] [id number] [place] [address] Jul, [facility] [place] [facility] [address] [id number] [place] [address] Jul, [facility] [address] [id number] [place] [address] Jul, [facility] [place] [facility] [address] [id number] [place] [address] Jul, [facility] [address] [id number] [place] [address] 2012 [facility] [address] [id number] [place] [address] 20 Jun, 2012 [facility] [address] [id number] [place] [address] 18 Jun, 2012 [facility] [address] [id number] [place] [address] 14 Jun, 2012 [facility] [place] [facility] [address] [id number] [place] [address] 04 Jun, 2012 [facility] [place] [facility] [address] [id number] [place] [address] 39[address] May, [facility] [place] [facility] [address] [id number] [place] [address] 12 May, 2012 [facility] [place] [facility] [address] [id number] [place] [address] May, [facility] [place] [facility] [address] [id number] [place] [address] 08 May, 2012 [facility] [address] [id number] [place] [address] Apr, [facility] [place] [facility] [address] [id number] [place] [address] Apr, [facility] [place] [facility] [address] [id number] [place] [address] Apr, [facility] [place] [facility] [address] [id number] [place] [address] Mar, [facility] [place] [facility] [address] [id number] [place] [address] Mar, [facility] [place] [facility] [address] [id number] [place] [address] Mar, [facility] [place] [facility] [address] [id number] [place] [address] 79[address] Mar, [facility] [place] [facility] [address] [id number] [place] [address] 35[address] Mar, [facility] [place] [facility] [address] [id number] [place] [address] 1735 Mar, [facility] [place] [facility] [address] [id number] [place] [address] Mar, [facility] [place] [facility] [address] [id number] [place] [address] Mar, [facility] [place] [facility] [address] [id number], [place] [address] Feb, [facility] [place] [facility] [address] [id number] [place] [address] Feb, [facility] [place] [facility] [address] [id number] [place] [address] Feb, [facility] [place] [facility] [address] [id number] [place] [address] Feb, [facility] [place] [facility] [address] [id number], [place] [address] Feb, [facility] [place] [facility] [address] [id number] [place] [address] Feb, [facility] [place] [facility] [address] [id number] [place] [address] Feb, [facility] [place] [facility] [address] [facility] [id number] [place] [address] Feb, [facility] [place] [facility] [address] [id number] [place] [address] Feb, [facility] [place] [facility] [address] [id number] [place] [address] Feb, [facility] [place] [facility] [address] [facility] [id number] [place] [address] Feb, [facility] [place] [facility] [id number] [place] [address] Feb, [facility] [place] [facility] [address] [facility] [id number] [place] [address] Feb, [facility] [place] [facility] [address] [facility] [id number] [place] [address] Feb, [facility] [place] [facility] [address] [facility] [id number] [place] [address] 86[address] Feb, [facility] [place] [facility] [address] [facility] [id number], [place] [address] Feb, [facility] [place] [facility] [address] [facility] [id number], [place] [address]- [address] Feb, [facility] [place] [facility] [address] [facility] [id number], [place] [address]- 9[address] Feb, [facility] [place] [facility] [address] [facility] [id number] [place] [address] Jan, [facility] [place] [facility] [address] [facility] [id number], [place] [address] Jan, [facility] [place] [facility] [address] [id number] [place] [address]95 22 Jan, 2011 [facility] [place] [facility] [address] [id number] [place] [address]- 6074 20 Jan, 2012 [facility] [place] [facility] [address] [id number] [place] [address]- [address]331 20 Jan, 2012 [facility] [place] [facility] [address] [id number] [place] [address]- 8719 19 Jan, 2012 [facility] [place] [facility] [address] [id number] [place] [address]- 4033 18 Jan, 2012 [facility] [place] [facility] [address] [id number] [place] [address]- 5716 18 Jan, 2012 [facility] [place] [facility] [address] [id number] [place] [address]- 4805 15 Jan, 2012 [facility] [place] [facility] [address] [id number] [place] [address]- 6183 15 Jan, 2012 [facility] [place] [facility] [address] [id number] [place] [address]- 7766 11 Jan, 2012 [facility] [place] [facility] [address] [id number] [place] [address]- 8338 11 Jan, 2012 [facility] [place] [facility] [address] [facility] [id number] [place] [address]- 2749 10 Jan, 2012 [facility] [place] [facility] [address] [id number] [place] [address]- 3478 09 Jan, 2012 [facility] [place] [facility] [address] [id number] [place] [address]- 2421 02 Jan, 2012 [facility] [place] [facility] [address] [id number] [place] [address]- 1196 29 Dec, 2011 [facility] [place] [facility] [address] [id number] [place] [address]- 4056 28 Dec, 2011 [facility] [place] [facility] [address] [id number] [place] [address]- 8749 Dec, [facility] [place] [facility] [address] [id number] [place] [address]- [address]886 Dec, [facility] [place] [facility] [address] [id number] [place] [address]- 7661 Nov, [facility] [place] [facility] [address] [id number] [place] [address]- 6[address] Nov, [facility] [place] [facility] [address] [id number] [place] [address]- 6894 Nov, [facility] [place] [facility] [address] [id number] [place] [address]- 3095 Nov, [facility] [place] [facility] [address] [id number] [place] [address]- 9738 Nov, [facility] [place] [facility] [address] [id number] [place] [address]- 1670 Nov, [facility] [place] [facility] [address] [id number] [place] [address]- 4775 Nov, [facility] [place] [facility] [address] [id number] [place] [address]- 7855 Nov, [facility] [place] [facility] [address] [id number] [place] [address]- 5147 Nov, [facility] [place] [facility] [address] [id number] [place] [address]- 3373 Nov, [facility] [place] [facility] [address] [id number] [place] [address]- 7673 Nov, [facility] [facility] [address] [id number] [place] [address] Oct, [facility] [place] [facility] [address] [id number] [place] [address] Oct, [facility] [place] [facility] [address] [id number] [place] [address] Oct, [facility] [place] [facility] [address] [id number] [place] [address] Oct, [facility] [place] [facility] [address] [id number] [place] [address] Oct, [facility] [place] [address] [id number] [place] [address] 2006 Oct, [facility] [place] [address] [id number] [place] [address] Oct, [facility] [address] [id number] [place] [address] Oct, [facility] [address] [id number] [place] [address] Sep, [facility] [place] [facility] [address] [id number] [place] [address] Sep, [facility] [facility] [address] [id number] [place] [address] Sep, [facility] [place] [facility] [address] [id number] [place] [address]99 Sep, [facility] [place] [facility] [address] [id number] [place] [address] Sep, [facility] [address] [id number] [place] [address] Sep, [facility] [address] [id number] [place] [address] 1799 Sep, [facility] [address] [id number] [place] [address] August, [facility] [address] [id number] [place] [address] August, [facility] [facility] [address] [id number] [place] [address] August, [facility] [address] [id number] [place] [address] August, [facility] [address] [id number] [place] [address] August, [facility] [address] [id number] [place] [address] August, [facility] [address] [id number] [place] [address] August, [facility] [address] [id number] [place] [address] August, [facility] [address] [id number] [place] [address] Jul, [facility] [address] [id number] [place] [address] 17 Jul, 2011 [facility] [address] [id number] [place] [address] Jul, [facility] [address] [id number] [place] [address] Jul, [facility] [address] [id number] [place] [address] Jul, [facility] [address] [id number] [place] [address]- [address] 28 Jun, 2011 [facility] [address] [id number] [place] [address] 2011 [facility] [address] [id number] [place] [address] 20 Jun, 2011 [facility] [address] [id number] [place] [address] 19 Jun, 2011 [facility] [address] [id number] [place] [address]- [address] 12 Jun, 2011 [facility] [address] [id number] [place] [address] Jun, [facility] [address] [id number] [place] [address]- 6866 Jun, [facility] [address] [id number] [place] [address]35 Jun, [facility] [address] [id number] [place] [address] 3316 Jun, [facility] [address] [id number] [place] [address] 4056 May, [facility] [address] [id number] [place] [address] 46[address] May, [facility] [address] [id number] [place] [address]- 1636 May, [facility] [address] [id number] [place] [address]- [address] May, [facility] [address] [id number] [place] [address]- 6[address] May, [facility] [address] [id number] [place] [address]- 7893 May, [facility] [address] [id number] [place] [address] 6540 May, [facility] [address] [facility] [id number] [place] [address]- [address] May, [facility] [address] [facility] [id number] [place] [address]- [address] Apr, [facility] [address] [id number] [place] [address]38 Apr, [facility] [address] [id number] [place] [address]- 7293 Apr, [facility] [address] [id number] [place] [address]236 Apr, [facility] [address] [facility] [id number], [place] [address] Apr, [facility] [address] [id number] [place] [address] 05 Apr, 2011 [facility] [address] [id number] [place] [address]- [address]782 Mar, [facility] [address] [id number] [place] [address] 2398 Mar, [facility] [address] [id number] [place] [address]- 5649 Mar, [facility] [address] [id number] [place] [address]- 8619 Mar, [facility] [address] [id number] [place] [address]- 5807 15 Mar, 2011 [facility] [address] [id number] [place] [address]- [address]197 Mar, [facility] [address] [id number] [place] [address]- 4190 Mar, [facility] [address] [id number] [place] [address]- 4902 Mar, [facility] [address] [id number] [place] [address]- 1701 Mar, [facility] [address] [id number] [place] [address]- [address]001 Mar, [facility] [address] [id number] [place] [address]- 3136 Mar, [facility] [address] [id number] [place] [address]- 6309 Mar, [facility] [address] [id number] [place] [address]- 9754 Mar, [facility] [address] [id number] [place] [address]- 0299 Feb, [facility] [address] [id number] [place] [address]- 7766 Feb, [facility] [address] [id number] [place] [address] 17 Feb, 2011 [facility] [address] [id number] [place] [address]- 3653 Feb, [facility] [address] [id number] [place] [address]- 6511 Feb, [facility] [address] [id number] [place] [address]- 3407 Feb, [facility] [address] [id number] [place] [address]- 7485 Feb, [facility] [address] [id number] [place] [address]- 5107 Jan, [facility] [address] [id number] [place] [address]- 2492 Jan, [facility] [address] [id number] [place] [address]- 2878 Jan, [facility] [address] [id number] [place] [address]- 9536 Nov, [facility] [address] [id number] [place] [address]- 4932 Mar, [facility] [address] [id number], [place] [address]- 9158 Mar, [facility] [address] [id number], [place] [address]- 5256 20 Mar, 2010 [facility] [address] [id number] [place] [address]- 8507 13 Mar, 2010 [facility] [address] [id number] [place] [address] 07 Mar, 2010 [facility] [address] [id number] [place] [address]- 9402 30 Feb, 2010 [facility] [address] [facility] [id number] [place] [address]- [address]283 30 Feb, 2010 [facility] [address] [facility] [id number] [place] [address]- 69[address] 24 Feb, 2010 [facility] [address] [facility] [id number] [place] [address]- 6796 Feb, [facility] [address] [facility] [id number], [place] [address]- [address] Feb, [facility] [address] [facility] [id number], [place] [address]- [address]86 15 Feb, 2010 IMMUNIZATIONS No Known Immunizations SOCIAL HISTORY Never Assessed REASON FOR VISIT wt check. Patient needed to reschedule 09/16. JUAN Hurtado PLAN OF CARE VITAL SIGNS Height 60 in 2017-09-07 Weight 204.3 lbs 2017-09-07 BMI 39.90 kg/m2 2017-09-07 MEDICATIONS Unknown Medications RESULTS No Results PROCEDURES [...] Mastectomy 02/01/2017 Hospitalization History surgeries Hospitalization History [facility] ED 10/06/2017
--- OUTSIDE RECORDS SUMMARY | 2017-12-22 03:42 | XMS REPORT ---
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 [address] [id number] [place] [address]- 2664 19 Jun, 2014 [facility] [place] [facility] [address] [id number] [place] [address]- 9785 18 Jun, 2014 [facility] [place] [facility] [address] [id number] [place] [address]- 2694 18 Jun, 2014 [facility] [place] [facility] [address] [id number] [place] [address]- 6529 18 Jun, 2014 [facility] [place] [facility] [address] [id number] [place] [address]- 3779 18 Jun, 2014 [facility] [place] [facility] [address] [id number] [place] [address]- 9759 17 Jun, 2014 [facility] [place] [facility] [address] [id number] [place] [address]- 3766 17 Jun, 2014 [facility] [place] [facility] [address] [id number] [place] [address]- 8406 17 Jun, 2014 [facility] [place] [facility] [address] [id number] [place] [address]- 0200 17 Jun, 2014 [facility] [place] [facility] [address] [id number] [place] [address]- 8358 13 Jun, 2014 [facility] [place] [facility] [address] [id number] [place] [address]- 8894 13 Jun, 2014 [facility] [place] [facility] [address] [id number] [place] [address]- 2557 12 Jun, 2014 [facility] [place] [facility] [address] [id number] [place] [address]- 6585 12 Jun, 2014 [facility] [place] [facility] [address] [id number] [place] [address]- 5889 10 Jun, 2014 [facility] [place] [facility] [address] [id number] [place] [address]- 3802 10 Jun, 2014 [facility] [place] [facility] [address] [id number] [place] [address]- 1690 10 Jun, 2014 [facility] [place] [facility] [address] [id number] [place] [address]- 1728 10 Jun, 2014 [facility] [place] [facility] [address] [id number] [place] [address]- 3226 06 Jun, 2014 [facility] [place] [facility] [address] [id number] [place] [address]- 1371 06 Jun, 2014 [facility] [place] [facility] [address] [id number] [place] [address]- 6623 Jun, 2014 [facility] [place] [facility] [address] [id number] [place] [address]- 1536 Jun, [facility] [place] [facility] [address] [id number] [place] [address]- 9634 Jun, [facility] [place] [facility] [address] [id number] [place] [address]- 2804 Jun, [facility] [place] [facility] [address] [id number] [place] [address]- 8625 May, 2014 [facility] [place] [facility] [address] [id number] [place] [address]- 8878 May, 2014 [facility] [place] [facility] [address] [id number] [place] [address]- 5723 May, 2014 [facility] [place] [facility] [address] [id number] [place] [address]- 5833 May, 2014 [facility] [place] [facility] [address] [id number] [place] [address]- 2837 May, 2014 [facility] [place] [facility] [address] [id number] [place] [address]- 4253 May, 2014 [facility] [place] [facility] [address] [id number] [place] [address]- 4057 May, 2014 [facility] [place] [facility] [address] [id number] [place] [address]- 8608 May, 2014 [facility] [place] [facility] [address] [id number] [place] [address]- 3989 May, 2014 [facility] [place] [facility] [address] [id number] [place] [address]- 9327 May, 2014 [facility] [place] [facility] [address] [id number] [place] [address]- 4267 May, 2014 [facility] [place] [facility] [address] [facility] [id number] [place] [address]- 7434 May, 2014 [facility] [place] [facility] [address] [id number] [place] [address]- 8321 05 May, 2014 [facility] [place] [facility] [address] [id number] [place] [address]- 6543 May, [facility] [place] [facility] [address] [id number] [place] [address]- 5296 May, [facility] [place] [facility] [address] [id number] [place] [address]- 1808 May, [facility] [place] [facility] [address] [id number] [place] [address]- 2892 Apr, [facility] [place] [facility] [address] [id number] [place] [address]- 3269 Apr, [facility] [place] [facility] [address] [id number] [place] [address]- 1766 Apr, [facility] [place] [facility] [address] [id number] [place] [address]- 3718 Apr, [facility] [place] [facility] [address] [id number] [place] [address]- 8079 Apr, [facility] [place] [facility] [address] [id number] [place] [address]- 9825 Apr, [facility] [place] [facility] [address] [id number] [place] [address]- 6999 Apr, [facility] [place] [facility] [address] [id number] [place] [address]- 7427 Apr, [facility] [place] [facility] [address] [id number] [place] [address]- 0311 Apr, [facility] [place] [facility] [address] [id number] [place] [address]- 1233 Apr, [facility] [place] [facility] [address] [id number] [place] [address]- 2650 Apr, [facility] [place] [facility] [address] [id number] [place] [address]- 8758 Apr, [facility] [place] [facility] [address] [id number] [place] [address]- 9430 Apr, [facility] [place] [facility] [address] [id number] [place] [address]- 8556 Apr, [facility] [place] [facility] [address] [id number] [place] [address]- 8001 Apr, [facility] [place] [facility] [address] [id number] [place] [address]- 6980 Mar, [facility] [place] [facility] [address] [id number] [place] [address]- 4701 Mar, [facility] [place] [facility] [address] [id number] [place] [address]- 6232 Mar, [facility] [place] [facility] [address] [id number] [place] [address]- 5178 Mar, [facility] [place] [facility] [address] [id number] [place] [address]- 9651 Mar, [facility] [place] [facility] [address] [id number] [place] [address]- 3895 Mar, [facility] [place] [facility] [address] [id number] [place] [address]- 3437 15 Mar, 2014 [facility] [place] [facility] [address] [id number] [place] [address]- 6898 15 Mar, 2014 [facility] [place] [facility] [address] [id number] [address]- 6015 15 Mar, 2014 [facility] [place] [facility] [address] [id number] [place] [address]- 8446 15 Mar, 2014 [facility] [place] [facility] [address] [id number] [place] [address]- 6413 15 Mar, 2014 [facility] [place] [facility] [address] [id number] [place] [address]- 8710 15 Mar, 2014 [facility] [place] [facility] [address] [id number] [place] [address]- 0420 Mar, [facility] [place] [facility] [address] [id number] [place] [address]- 6336 Mar, [facility] [place] [facility] [address] [id number] [place] [address]- 0336 Mar, [facility] [place] [facility] [address] [id number] [place] [address]- 7383 Mar, [facility] [place] [facility] [address] [id number] [place] [address]- 1196 Mar, [facility] [place] [facility] [address] [id number] [place] [address]- 5408 Mar, [facility] [place] [facility] [address] [id number] [place] [address]- 1311 Feb, [facility] [place] [facility] [address] [id number] [place] [address]- 3686 Feb, [facility] [place] [facility] [address] [id number] [place] [address]- 4170 Feb, [facility] [place] [facility] [address] [id number] [place] [address]- 2729 Feb, [facility] [place] [facility] [address] [facility] [id number] [place] [address]- 9091 Feb, [facility] [place] [facility] [address] [id number] [place] [address]- 5588 Feb, [facility] [place] [facility] [address] [id number] [place] [address]- 8005 Feb, [facility] [place] [facility] [address] [id number] [place] 5249 Feb, [facility] [place] [facility] [address] [id number] [place] [address]- 1732 Jan, [facility] [place] [facility] [address] [id number] [place] [address] Jan, [facility] [place] [facility] [address] [id number] [place] [address] Jan, [facility] [place] [facility] [address] [id number] [place] [address] Jan, [facility] [place] [facility] [address] [id number] [place] [address] Jan, [facility] [place] [facility] [address] [id number] [place] [address] Jan, [facility] [place] [facility] [address] [id number] [place] [address] Jan, [facility] [place] [facility] [address] [id number] [place] [address] Jan, [facility] [place] [facility] [address] [id number] [place] [address] Jan, [facility] [place] [facility] [address] [id number] [place] [address] Jan, [facility] [place] [facility] [address] [id number] [place] [address] Jan, [facility] [place] [facility] [address] [id number] [place] [address] Jan, [facility] [place] [facility] [address] [id number] [place] [address] Jan, [facility] [place] [facility] [address] [id number] [address] Jan, [facility] [place] [facility] [address] [id number] [place] [address] Jan, [facility] [place] [facility] [address] [id number] [place] [address] 16 Jan, 2014 [facility] [place] [facility] [address] [id number] [place] [address] Jan, [facility] [place] [facility] [address] [id number] [address] 13 Jan, 2014 [facility] [place] [facility] [address] [id number] [place] [address]46 29 Sep, 2013 [facility] [place] [facility] [address] [id number] [place] [address]46 29 Dec, 2013 [facility] [place] [facility] [address] [id number] [place] [address]46 26 Dec, 2013 [facility] [place] [facility] [address] [id number] [place] [address] 2546 26 Dec, 2013 [facility] [place] [facility] [address] [id number] [place] [address] 254 26 Dec, 2013 [facility] [place] [facility] [address] [id number] [place] [address] 26 Dec, 2013 [facility] [place] [facility] [address] [id number] [place] [address] 23 Dec, 2013 [facility] [place] [facility] [address] [id number] [place] [address] 23 Dec, 2013 [facility] [place] [facility] [address] [id number] [place] [address] 2547 22 Dec, 2013 [facility] [place] [facility] [address] [id number] [place] [address] 2541 22 Dec, 2013 [facility] [place] [facility] [address] [id number] [place] [address]47 16 Dec, 2013 [facility] [place] [facility] [address] [id number] [place] [address] 16 Dec, 2013 [facility] [place] [facility] [address] [id number] [place] [address] 15 Dec, 2013 [facility] [place] [facility] [address] [id number] [place] [address] 2546 15 Dec, 2013 [facility] [place] [facility] [address] [id number] [place] [address]- [address] 09 Dec, 2013 [facility] [place] [facility] [address] [id number] [place] [address] Dec, [facility] [place] [facility] [address] [id number] [place] [address] Dec, [facility] [place] [facility] [address] [id number] [place] [address] Nov, [facility] [place] [facility] [address] [id number] [place] [address] Nov, [facility] [place] [facility] [address] [id number] [place] [address] Nov, [facility] [place] [facility] [address] [id number] [place] [address] Nov, [facility] [place] [facility] [address] [id number] [place] [address] Nov, [facility] [place] [facility] [address] [id number] [place] [address] Nov, [facility] [place] [facility] [address] [id number] [place] [address] Nov, [facility] [place] [facility] [address] [id number] [place] [address] Nov, [facility] [place] [facility] [address] [id number] [place] [address] Nov, [facility] [place] [facility] [address] [id number] [place] [address] Nov, [facility] [place] [facility] [address] [id number] [place] [address] Nov, [facility] [place] [facility] [address] [id number] [place] [address] Nov, [facility] [place] [facility] [address] [id number] [place] [address] 2789 Nov, [facility] [place] [facility] [address] [id number] [place] [address] 4092 Nov, [facility] [place] [facility] [address] [id number] [place] [address] 6767 Nov, [facility] [place] [facility] [address] [id number] [place] [address]- 9006 Nov, [facility] [place] [facility] [address] [id number] [place] [address] 7841 Nov, [facility] [place] [facility] [address] [id number] [place] [address]- 6616 Nov, [facility] [place] [facility] [address] [id number] [place] [address]- 7902 Nov, [facility] [place] [facility] [address] [id number] [place] [address]- 4411 Nov, [facility] [place] [facility] [address] [id number] [place] [address]- 9507 Nov, [facility] [place] [facility] [address] [id number] [place] [address]- 7615 Oct, [facility] [place] [facility] [address] [id number] [place] [address]- 1996 Oct, [facility] [place] [facility] [address] [id number] [place] [address]- 3674 Oct, [facility] [place] [facility] [address] [id number] [place] [address]- 0238 Oct, [facility] [place] [facility] [address] [id number] [place] [address]- 4241 Oct, [facility] [place] [facility] [address] [id number] [place] [address]- 5712 Oct, [facility] [place] [facility] [address] [id number] [place] [address]- 4666 Oct, [facility] [place] [facility] [address] [id number] [place] [address]- 7483 Oct, [facility] [place] [facility] [address] [id number] [place] [address]- 4794 15 Oct, 2013 [facility] [place] [facility] [address] [id number] [place] [address]- 7499 14 Oct, 2013 [facility] [place] [facility] [address] [id number] [place] [address]- 0907 Oct, [facility] [place] [facility] [address] [id number] [place] [address]- 8955 Oct, [facility] [place] [facility] [address] [id number] [place] [address]- 3147 Oct, [facility] [place] [facility] [address] [id number] [place] [address]- 1082 Oct, [facility] [place] [facility] [address] [id number] [place] [address]- 7389 Oct, [facility] [place] [facility] [address] [id number] [place] [address]- 7516 Sep, [facility] [place] [facility] [address] [id number] [place] [address]- 3535 Sep, [facility] [place] [facility] [address] [id number] [place] [address]- 5877 Sep, [facility] [place] [facility] [address] [id number] [place] [address]- 2435 Sep, [facility] [place] [facility] [address] [id number] [place] [address]- 4375 Sep, [facility] [place] [facility] [address] [id number] [place] [address]- 3850 Sep, [facility] [place] [facility] [address] [id number] [place] [address]- 7288 Sep, [facility] [place] [facility] [address] [id number] [place] [address]- 9430 Sep, [facility] [place] [facility] [address] [id number] [place] [address]- 3606 17 Sep, 2013 [facility] [place] [facility] [address] [id number] [place] [address]- 1578 Sep, [facility] [place] [facility] [address] [id number] [place] [address]- 4211 Sep, [facility] [place] [facility] [address] [id number] [place] [address]- 2947 Sep, [facility] [place] [facility] [address] [id number] [place] [address]- 4669 Sep, [facility] [place] [facility] [address] [id number] [place] [address]- 7416 Sep, [facility] [place] [facility] [address] [id number] [place] [address]- 4401 Sep, [facility] [place] [facility] [address] [id number] [place] [address]- 8963 Sep, [facility] [place] [facility] [address] [id number] [place] [address]- 9120 Sep, [facility] [place] [facility] [address] [id number] [place] [address]- 4158 Sep, [facility] [place] [facility] [address] [id number] [place] [address]- 3114 Sep, [facility] [place] [facility] [address] [id number] [place] [address]- 5200 Sep, [facility] [place] [facility] [address] [id number] [place] [address]- 9526 Sep, [facility] [place] [facility] [address] [id number] [place] [address]- 6199 Sep, [facility] [place] [facility] [address] [id number] [place] [address]- 8415 August, [facility] [place] [facility] [address] [id number] [place] [address]- 1459 August, [facility] [place] [facility] [address] [id number] [place] [address]- 1597 August, [facility] [address] [id number] [place] [address]- 1766 August, [facility] [place] [facility] [address] [id number] [place] [address]- 8690 August, [facility] [place] [facility] [address] [id number] [place] [address]- 4120 August, [facility] [place] [facility] [address] [id number] [place] [address]- 0244 August, [facility] [place] [facility] [address] [id number] [place] [address]- 3592 August, [facility] [place] [facility] [address] [id number] [place] [address]- 9848 August, [facility] [place] [facility] [address] [id number] [place] [address]- 7255 August, [facility] [place] [facility] [address] [id number] [place] [address]- 3313 August, [facility] [place] [facility] [address] [id number] [place] [address]- 8146 August, [facility] [place] [facility] [address] [id number] [place] [address]- 8128 August, [facility] [place] [facility] [address] [id number] [place] [address]- 2398 August, [facility] [place] [facility] [address] [id number] [place] [address]- 7494 August, [facility] [place] [facility] [address] [id number] [place] [address]- 0909 August, [facility] [place] [facility] [address] [id number] [place] [address]- 6762 August, [facility] [place] [facility] [address] [id number] [place] [address]- 9619 August, [facility] [place] [facility] [address] [id number] [place] [address]- 4400 Jul, [facility] [place] [facility] [address] [id number] [place] [address]- 3437 Jul, [facility] [place] [facility] [address] [id number] [place] [address]- 7487 Jul, [facility] [place] [facility] [address] [id number] [place] [address]- 4550 Jul, [facility] [place] [facility] [address] [id number] [place] [address]- 9082 Jul, [facility] [place] [facility] [address] [id number] [place] [address]- 7109 Jul, [facility] [place] [facility] [address] [id number] [place] [address]- 8001 Jul, [facility] [place] [facility] [address] [id number] [place] [address]- 9892 Jul, [facility] [place] [facility] [address] [id number] [place] [address]- 5327 Jul, [facility] [place] [facility] [address] [id number] [place] [address]- 2533 Jul, [facility] [place] [facility] [address] [id number] [place] [address]- 2071 Jul, [facility] [place] [facility] [address] [id number] [place] [address]- 3964 Jul, [facility] [place] [facility] [address] [id number] [place] [address]- 4844 Jul, [facility] [place] [facility] [address] [id number] [place] [address]- 1122 Jul, [facility] [place] [facility] [address] [id number] [place] [address]- 0767 Jul, [facility] [place] [facility] [address] [id number] [place] [address]- 0417 Jul, [facility] [place] [facility] [address] [id number] [place] [address]- 4096 17 Jul, 2013 [facility] [place] [facility] [address] [id number] [place] [address]- 5701 16 Jul, 2013 [facility] [place] [facility] [address] [id number] [place] [address]- 9897 16 Jul, 2013 [facility] [place] [facility] [address] [id number] [place] [address]- 2036 15 Jul, 2013 [facility] [place] [facility] [address] [id number] [place] [address]- 1163 15 Jul, 2013 [facility] [place] [facility] [address] [id number] [place] [address]- 0894 14 Jul, 2013 [facility] [place] [facility] [address] [id number] [place] [address]- 1605 Jul, [facility] [place] [facility] [address] [id number] [place] [address]- 8392 Jul, [facility] [place] [facility] [address] [id number] [place] [address]- 6891 Jul, [facility] [place] [facility] [address] [id number] [place] [address]- 3553 Jul, [facility] [place] [facility] [address] [id number] [place] [address]- 7307 Jul, [facility] [place] [facility] [address] [id number] [place] [address]- 5118 Jul, [facility] [place] [facility] [address] [id number] [place] [address]- 2701 Jul, [facility] [place] [facility] [address] [id number] [place] [address]- 8605 Jun, [facility] [place] [facility] [address] [id number] [place] [address]- 3729 Jun, [facility] [place] [facility] [address] [id number] [place] [address]- 6959 17 Jun, 2013 [facility] [place] [facility] [address] [id number] [place] [address]- 8455 17 Jun, 2013 [facility] [place] [facility] [address] [id number] [place] [address]- 3688 Jun, [facility] [place] [facility] [address] [id number] [place] [address]- 8461 Jun, [facility] [place] [facility] [address] [id number] [place] [address]- 2022 Jun, [facility] [place] [facility] [address] [id number] [place] [address]- 0579 Jun, [facility] [place] [facility] [address] [id number] [place] [address]- 1041 Jun, [facility] [place] [facility] [address] [facility] [id number] [place] [address]- 8853 Jun, [facility] [place] [facility] [address] [id number] [place] [address]- 0708 Jun, [facility] [place] [facility] [address] [id number] [place] [address]- 2991 Jun, [facility] [place] [facility] [address] [facility] [id number] [place] [address]- 7729 May, [facility] [place] [facility] [address] [id number] [place] [address]- 6951 May, [facility] [place] [facility] [address] [id number] [place] [address]- 7746 May, [facility] [place] [facility] [address] [id number] [place] [address]- 5792 May, [facility] [place] [facility] [address] [id number] [place] [address]- 4781 May, [facility] [place] [facility] [address] [facility] [id number] [place] [address]- 2585 May, [facility] [place] [facility] [address] [id number] [place] [address]- 7042 May, [facility] [place] [facility] [address] [id number] [place] [address]- 1695 May, [facility] [place] [facility] [address] [id number] [place] [address]- 8096 May, [facility] [place] [facility] [address] [id number] [place] [address]- 9471 May, [facility] [place] [facility] [address] [id number] [place] [address]- 8683 Apr, [facility] [place] [facility] [address] [id number] [place] [address]- 2998 Apr, [facility] [place] [facility] [address] [id number] [place] [address]- 6232 Apr, [facility] [place] [facility] [address] [id number] [place] [address]- 7354 Apr, [facility] [place] [facility] [address] [id number] [place] [address]- 1635 Apr, [facility] [place] [facility] [address] [id number] [place] [address]- 4413 Apr, [facility] [place] [facility] [address] [id number] [place] [address]- 1889 Apr, [facility] [place] [facility] [address] [id number] [place] [address]- 5078 Apr, [facility] [place] [facility] [address] [id number] [place] [address]- 0711 Apr, [facility] [place] [facility] [address] [id number] [place] [address]- 2713 Apr, [facility] [place] [facility] [address] [id number] [place] [address]- 2062 Mar, [facility] [place] [facility] [address] [id number] [address]- 5700 Mar, [facility] [place] [facility] [address] [id number] [place] [address]- 3995 Mar, [facility] [place] [facility] [address] [id number] [place] [address]- 7877 Mar, [facility] [place] [facility] [address] [id number] [place] [address]- 6346 Mar, [facility] [place] [facility] [address] [id number] [place] [address]- 6142 Mar, [facility] [place] [facility] [address] [id number] [place] [address]- 5204 Feb, [facility] [place] [facility] [address] [id number] [place] [address]- 4462 Feb, [facility] [place] [facility] [address] [facility] [id number] [place] [address]- 9173 Feb, [facility] [place] [facility] [address] [id number] [place] [address]- 7238 Jan, [facility] [place] [facility] [address] [facility] [id number] [place] [address]- 1353 30 Jan, 2013 [facility] [place] [facility] [address] [facility] [id number] [place] [address]- 8652 Jan, [facility] [place] [facility] [address] [id number] [address]- 7600 28 Jan, 2013 [facility] [place] [facility] [address] [id number] [place] [address]- 3878 15 Jan, 2013 [facility] [place] [facility] [address] [id number] [place] [address]- 9762 15 Jan, 2013 [facility] [place] [facility] [address] [facility] [id number] [place] [address]- 0207 Jan, [facility] [place] [facility] [address] [facility] [id number] [place] [address]- 6550 11 Jan, 2013 [facility] [place] [facility] [address] [id number] [place] [address]- 2209 Jan, [facility] [place] [facility] [address] [id number] [place] [address]- 7461 Jan, [facility] [place] [facility] [address] [id number] [place] [address]- 9486 30 Dec, 2012 [facility] [place] [facility] [address] [id number] [place] [address]- 9116 25 Dec, 2012 [facility] [place] [facility] [address] [id number] [place] [address]- 6178 11 Dec, 2012 [facility] [place] [facility] [address] [id number] [place] [address]- 6276 Dec, 2012 [facility] [place] [facility] [address] [id number] [place] [address]- 1982 05 Dec, 2012 [facility] [place] [facility] [address] [id number] [place] [address]- 2709 Dec, 2012 [facility] [place] [facility] [address] [id number] [place] [address]- 7221 Nov, [facility] [place] [facility] [address] [id number] [place] [address]- 1832 Nov, [facility] [place] [facility] [address] [id number] [place] [address]- 7759 Nov, [facility] [place] [facility] [address] [id number] [place] [address]- 8387 Nov, [facility] [place] [facility] [address] [id number] [place] [address] 2540 Nov, [facility] [place] [facility] [address] [id number] [place] [address]- 7966 Nov, [facility] [place] [facility] [address] [id number] [place] [address]- 2549 Nov, [facility] [place] [facility] [address] [id number] [place] [address]- 6351 Nov, [facility] [address] [id number] [place] [address]- 4379 Nov, [facility] [place] [facility] [address] [id number] [place] [address]- 1302 Nov, [facility] [place] [facility] [address] [id number] [place] [address]- 0294 Nov, [facility] [place] [facility] [address] [id number] [place] [address]- 8041 Nov, [facility] [place] [facility] [address] [id number] [place] [address]- 0113 Oct, [facility] [place] [facility] [address] [id number] [place] [address]- 5279 Oct, [facility] [place] [facility] [address] [id number] [place] [address]- 3160 Oct, [facility] [place] [facility] [address] [id number] [place] [address]- 4074 Sep, [facility] [place] [facility] [address] [id number] [place] [address]- 9449 Sep, [facility] [place] [facility] [address] [id number] [place] [address]- 5265 Sep, [facility] [place] [facility] [address] [id number] [place] [address]- 9169 August, [facility] [place] [facility] [address] [id number] [place] [address]- 3844 August, [facility] [place] [facility] [address] [id number] [place] [address]- 0030 August, [facility] [place] [facility] [address] [id number] [place] [address]- 6313 August, [facility] [place] [facility] [address] [id number] [place] [address]- 9447 August, [facility] [place] [facility] [address] [id number] [place] [address]- 8073 August, [facility] [address] [id number] [place] [address]- 6071 30 Jul, 2012 [facility] [place] [facility] [address] [id number] [place] [address]- 1491 15 Jul, 2012 [facility] [address] [id number] [place] [address]- 1757 Jul, [facility] [place] [facility] [address] [id number] [place] [address]- 0256 Jul, [facility] [address] [id number] [place] [address]- 5026 Jul, [facility] [place] [facility] [address] [id number] [place] [address]- 1677 Jul, [facility] [address] [id number] [place] [address]- 0387 2012 [facility] [address] [id number] [place] [address]- 0180 20 Jun, 2012 [facility] [address] [id number] [place] [address]- 9707 18 Jun, 2012 [facility] [address] [id number] [place] [address]- 7203 14 Jun, 2012 [facility] [place] [facility] [address] [id number] [place] [address]- 6343 04 Jun, 2012 [facility] [place] [facility] [address] [id number] [place] [address]- 1516 May, [facility] [place] [facility] [address] [id number] [place] [address]- 1262 12 May, 2012 [facility] [place] [facility] [address] [id number] [place] [address]- 0259 May, [facility] [place] [facility] [address] [id number] [place] [address]- 6312 08 May, 2012 [facility] [address] [id number] [place] [address]- 8729 Apr, [facility] [place] [facility] [address] [id number] [place] [address]- 8355 Apr, [facility] [place] [facility] [address] [id number] [place] [address]- 1070 Apr, [facility] [place] [facility] [address] [id number] [place] [address]- 3350 Mar, [facility] [place] [facility] [address] [id number] [place] [address]- 7260 Mar, [facility] [place] [facility] [address] [id number] [place] [address] Mar, [facility] [place] [facility] [address] [id number] [place] [address] Mar, [facility] [place] [facility] [address] [id number] [place] [address] 14[address] Mar, [facility] [place] [facility] [address] [id number] [place] [address] Mar, [facility] [place] [facility] [address] [id number] [place] [address]758 Mar, [facility] [place] [facility] [address] [id number] [place] [address] Mar, [facility] [place] [facility] [address] [id number] [address] Feb, [facility] [place] [facility] [address] [id number] [place] [address] 47[address] Feb, [facility] [place] [facility] [address] [id number] [place] [address] Feb, [facility] [place] [facility] [address] [id number] [place] [address]- [address] Feb, [facility] [place] [facility] [address] [id number] [place] [address] Feb, [facility] [place] [facility] [address] [id number] [place] [address] Feb, [facility] [place] [facility] [address] [id number] [place] [address]- [address]254 Feb, [facility] [place] [facility] [address] [facility] [id number] [place] [address] Feb, [facility] [place] [facility] [address] [id number] [place] [address] 6736 Feb, [facility] [place] [facility] [address] [id number] [place] [address]40 Feb, [facility] [place] [facility] [address] [facility] [id number] [place] [address]- 6575 Feb, [facility] [place] [facility] [address] [place] [id number] [place] [address] 2009 Feb, [facility] [place] [facility] [address] [facility] [id number] [place] [address]- 4290 Feb, [facility] [place] [facility] [address] [facility] [id number] [place] [address]- [address] Feb, [facility] [place] [facility] [address] [facility] [id number] [place] [address]- [address]58 Feb, [facility] [place] [facility] [address] [facility] [id number] [place] [address] 16[address] Feb, [facility] [place] [facility] [address] [facility] [id number] [place] [address] Feb, [facility] [place] [facility] [address] [facility] [id number] [place] [address]798 Feb, [facility] [place] [facility] [address] [facility] [id number] [place] [address]- [address]407 Jan, [facility] [place] [facility] [address] [facility] [id number] [place] [address]- 267[address] Jan, [facility] [place] [facility] [address] [id number] [place] [address]- 4569 22 Jan, 2011 [facility] [place] [facility] [address] [id number] [place] [address]- [address] 20 Jan, 2012 [facility] [place] [facility] [address] [id number] [place] [address]- [address]149 20 Jan, 2012 [facility] [place] [facility] [address] [id number] [place] [address]- 1627 19 Jan, 2012 [facility] [place] [facility] [address] [id number] [place] [address]- 2519 18 Jan, 2012 [facility] [place] [facility] [address] [id number] [place] [address]- [address] 18 Jan, 2012 [facility] [place] [facility] [address] [id number] [place] [address]- 239[address] 15 Jan, 2012 [facility] [place] [facility] [address] [id number] [place] [address]388 15 Jan, 2012 [facility] [place] [facility] [address] [id number] [place] [address]- 6799 11 Jan, 2012 [facility] [place] [facility] [address] [id number] [place] [address]- 8530 11 Jan, 2012 [facility] [place] [facility] [address] [facility] [id number] [place] [address]- 4481 10 Jan, 2012 [facility] [place] [facility] [address] [id number] [place] [address]- 7759 09 Jan, 2012 [facility] [place] [facility] [address] [id number] [place] [address]- 9778 02 Jan, 2012 [facility] [place] [facility] [address] [id number] [place] [address]- 8166 29 Dec, 2011 [facility] [place] [facility] [address] [id number] [place] [address]- 9216 28 Dec, 2011 [facility] [place] [facility] [address] [id number] [place] [address]- 4463 Dec, [facility] [place] [facility] [address] [id number] [place] [address]- 1838 Dec, [facility] [place] [facility] [address] [id number] [place] [address]- 8484 Nov, [facility] [place] [facility] [address] [id number] [place] [address]- 4386 Nov, [facility] [place] [facility] [address] [id number] [place] [address]- 7282 Nov, [facility] [place] [facility] [address] [id number] [place] [address]- 6586 Nov, [facility] [place] [facility] [address] [id number] [place] [address]- 0868 Nov, [facility] [place] [facility] [address] [id number] [place] [address]- 1879 Nov, [facility] [place] [facility] [address] [id number] [place] [address]- 3447 Nov, [facility] [place] [facility] [address] [id number] [place] [address]- 2531 Nov, [facility] [place] [facility] [address] [id number] [place] [address]- 4860 Nov, [facility] [place] [facility] [address] [id number] [place] [address]- 0669 Nov, [facility] [place] [facility] [address] [id number] [place] [address]- 1112 Nov, [facility] [place] [facility] [address] [id number] [place] [address]- 2292 Oct, [facility] [place] [facility] [address] [id number] [place] [address]- 2045 Oct, [facility] [place] [facility] [address] [id number] [place] [address]- 3049 Oct, [facility] [place] [facility] [address] [id number] [place] [address]- [address] Oct, [facility] [place] [facility] [address] [id number] [place] [address]- 8122 Oct, [facility] [place] [facility] [address] [id number] [place] [address]- 9326 Oct, [facility] [place] [facility] [address] [id number] [place] [address]- 2816 Oct, [facility] [place] [facility] [address] [id number] [place] [address]- 8830 Oct, [facility] [place] [facility] [address] [id number] [place] [address]- 5[address] Sep, [facility] [place] [facility] [address] [id number] [place] [address]- 4068 Sep, [facility] [place] [facility] [address] [id number] [place] [address]- 2329 Sep, [facility] [place] [facility] [address] [id number] [place] [address]- 0026 Sep, [facility] [place] [facility] [address] [id number] [place] [address]- 6605 Sep, [facility] [place] [facility] [address] [id number] [place] [address]- 4799 Sep, [facility] [place] [facility] [address] [id number] [place] [address]- 9711 Sep, [facility] [place] [facility] [address] [id number] [place] [address]- 0146 August, [facility] [place] [facility] [address] [id number] [place] [address]- 7229 August, [facility] [place] [facility] [address] [id number] [place] [address]- 4050 August, [facility] [place] [facility] [address] [id number] [place] [address]- 3490 August, [facility] [place] [facility] [address] [address] [id number] [place] [address] August, [facility] [address] [id number] [place] [address] August, [facility] [place] [facility] [address] [id number] [place] [address] August, [facility] [address] [id number] [place] [address] August, [facility] [address] [id number] [place] [address] Jul, [facility] [place] [facility] [address] [id number] [place] [address] 17 Jul, 2011 [facility] [address] [id number] [place] [address] Jul, [facility] [address] [id number] [place] [address] Jul, [facility] [address] [id number] [place] [address] Jul, [facility] [address] [id number] [place] [address] 28 Jun, 2011 [facility] [place] [facility] [address] [id number] [place] [address] 2011 [facility] [place] [facility] [address] [id number] [place] [address] 20 Jun, 2011 [facility] [place] [facility] [address] [id number] [place] [address] 19 Jun, 2011 [facility] [place] [facility] [address] [id number] [place] [address] 12 Jun, 2011 [facility] [place] [facility] [address] [id number] [place] [address] Jun, [facility] [place] [facility] [address] [id number] [place] [address] Jun, [facility] [address] [id number] [place] [address] Jun, [facility] [address] [id number] [place] [address] Jun, [facility] [address] [id number] [place] [address] May, [facility] [address] [id number] [place] [address] May, [facility] [address] [id number] [place] [address] May, [facility] [address] [id number] [place] [address] May, [facility] [address] [id number] [place] [address] May, [facility] [address] [id number] [place] [address] May, [facility] [address] [id number] [place] [address] May, [facility] [address] [facility] [id number] [place] [address] May, [facility] [address] [facility] [id number] [place] [address] Apr, [facility] [place] [facility] [address] [id number] [place] [address] Apr, [facility] [place] [facility] [address] [id number] [place] [address] Apr, [facility] [place] [facility] [address] [id number] [place] [address] Apr, [facility] [address] [facility] [id number] [address] Apr, [facility] [address] [id number] [place] [address] 05 Apr, 2011 [facility] [address] [id number] [place] [address] Mar, [facility] [place] [facility] [address] [id number] [place] [address] Mar, [facility] [place] [facility] [address] [id number] [place] [address] Mar, [facility] [address] [id number] [place] [address] Mar, [facility] [place] [facility] [address] [id number] [place] [address] 15 Mar, 2011 [facility] [address] [id number] [place] [address] Mar, [facility] [place] [facility] [address] [id number] [place] [address] Mar, [facility] [place] [facility] [address] [id number] [place] [address] Mar, [facility] [place] [facility] [address] [id number] [place] [address] Mar, [facility] [place] [facility] [address] [id number] [place] [address]- [address] Mar, [facility] [place] [facility] [address] [id number] [place] [address]- [address] Mar, [facility] [place] [facility] [address] [id number] [place] [address] Mar, [facility] [place] [facility] [address] [id number] [place] [address]- [address] Mar, [facility] [place] [facility] [address] [id number] [place] [address] Feb, [facility] [place] [facility] [address] [id number] [place] [address] Feb, [facility] [place] [facility] [address] [id number] [place] [address] 17 Feb, 2011 [facility] [place] [facility] [address] [id number] [place] [address] Feb, [facility] [place] [facility] [address] [id number] [place] [address]- [address] Feb, [facility] [place] [facility] [address] [id number] [place] [address] Feb, [facility] [place] [facility] [address] [id number] [place] [address] Feb, [facility] [place] [facility] [address] [id number] [place] [address] Jan, [facility] [place] [facility] [address] [id number] [place] [address]- 16[address] Jan, [facility] [place] [facility] [address] [id number] [place] [address] Jan, [facility] [place] [facility] [address] [id number] [place] [address]- [address] Nov, [facility] [place] [facility] [address] [id number] [place] [address] Mar, [facility] [place] [facility] [address] [id number] [place] [address] Mar, [facility] [place] [facility] [address] [id number] [place] [address] 20 Mar, 2010 [facility] [place] [facility] [address] [id number] [place] [address] 13 Mar, 2010 [facility] [place] [facility] [address] [id number] [place] [address] 07 Mar, 2010 [facility] [place] [facility] [address] [id number] [place] [address]- [address] 30 Feb, 2010 [facility] [place] [facility] [address] [facility] [id number] [place] [address] 30 Feb, 2010 [facility] [address] [facility] [id number] [place] [address] 24 Feb, 2010 [facility] [address] [facility] [id number] [place] [address] Feb, [facility] [address] [facility] [id number] [place] [address] Feb, [facility] [address] [facility] [id number] [place] [address] 15 Feb, 2010 IMMUNIZATIONS No Known Immunizations SOCIAL HISTORY Never Assessed REASON FOR VISIT Medication refill request PLAN OF CARE VITAL SIGNS MEDICATIONS Medication Instructions Dosage Frequency Start Date End Date Duration Status Ondansetron 4 MG Orally every 8 hrs 1 tablet on the tongue and allow to dissolve 8h May, 10 days Active RESULTS No Results PROCEDURES No [...] Mastectomy 02/01/2017 Hospitalization History surgeries Hospitalization History [facility] ED 10/06/2017
--- OUTSIDE RECORDS SUMMARY | 2017-12-22 03:44 | XMS REPORT ---
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 Jun, [facility] [place] [facility] [address] [id number] [place] [address]- 1008 19 Jun, 2014 [facility] [place] [facility] [address] [id number] [place] [address]- 1137 18 Jun, 2014 [facility] [place] [facility] [address] [id number] [place] [address]- 9086 18 Jun, 2014 [facility] [place] [facility] [address] [id number] [place] [address]- 8231 18 Jun, 2014 [facility] [place] [facility] [address] [id number] [place] [address]- 1357 18 Jun, 2014 [facility] [place] [facility] [address] [id number] [place] [address]- 9842 17 Jun, 2014 [facility] [place] [facility] [address] [id number] [place] [address]- 9106 17 Jun, 2014 [facility] [place] [facility] [address] [id number] [place] [address]- 2692 17 Jun, 2014 [facility] [place] [facility] [address] [id number] [place] [address]- 3313 17 Jun, 2014 [facility] [place] [facility] [address] [id number] [place] [address]- 6965 13 Jun, 2014 [facility] [place] [facility] [address] [id number] [place] [address]- 8761 13 Jun, 2014 [facility] [place] [facility] [address] [id number] [place] [address]- 5630 12 Jun, 2014 [facility] [place] [facility] [address] [id number] [place] [address]- 3205 12 Jun, 2014 [facility] [place] [facility] [address] [id number] [place] [address]- 2954 10 Jun, 2014 [facility] [place] [facility] [address] [id number] [place] [address]- 8233 10 Jun, 2014 [facility] [place] [facility] [address] [id number] [place] [address]- 0859 10 Jun, 2014 [facility] [place] [facility] [address] [id number] [place] [address]- 0106 10 Jun, 2014 [facility] [place] [facility] [address] [id number] [place] [address]- 0299 06 Jun, 2014 [facility] [place] [facility] [address] [id number] [place] [address]- 7409 06 Jun, 2014 [facility] [place] [facility] [address] [id number] [place] [address]- 7349 Jun, 2014 [facility] [place] [facility] [address] [id number] [place] [address]- 8179 Jun, [facility] [place] [facility] [address] [id number] [place] [address]- 5317 Jun, [facility] [place] [facility] [address] [id number] [place] [address]- 6433 Jun, [facility] [place] [facility] [address] [id number] [place] [address]- 0996 May, 2014 [facility] [place] [facility] [address] [id number] [place] [address]- 5828 May, 2014 [facility] [place] [facility] [address] [id number] [place] [address]- 6064 May, 2014 [facility] [place] [facility] [address] [id number] [place] [address]- 5970 May, 2014 [facility] [place] [facility] [address] [id number] [place] [address]- 2272 May, 2014 [facility] [place] [facility] [address] [id number] [place] [address]- 4299 May, 2014 [facility] [place] [facility] [address] [id number] [place] [address]- 3641 May, 2014 [facility] [place] [facility] [address] [id number] [place] [address]- 6318 May, 2014 [facility] [place] [facility] [address] [id number] [place] [address]- 4956 May, 2014 [facility] [place] [facility] [address] [id number] [place] [address]- 4493 May, 2014 [facility] [place] [facility] [address] [id number] [place] [address]- 7570 May, 2014 [facility] [place] [facility] [address] [facility] [id number] [place] [address]- 9940 May, 2014 [facility] [place] [facility] [address] [id number] [place] [address]- 1968 05 May, 2014 [facility] [place] [facility] [address] [id number] [place] [address]- 5490 May, [facility] [place] [facility] [address] [id number] [place] [address]- 3236 May, [facility] [place] [facility] [address] [id number] [place] [address]- 6183 May, [facility] [place] [facility] [address] [id number] [place] [address]- 9136 Apr, [facility] [place] [facility] [address] [id number] [place] [address]- 5397 Apr, [facility] [place] [facility] [address] [id number] [place] [address]- 5193 Apr, [facility] [place] [facility] [address] [id number] [place] [address]- 3894 Apr, [facility] [place] [facility] [address] [id number] [place] [address]- 9484 Apr, [facility] [place] [facility] [address] [id number] [place] [address]- 0066 Apr, [facility] [place] [facility] [address] [id number] [place] [address]- 5328 Apr, [facility] [place] [facility] [address] [id number] [place] [address]- 5986 Apr, [facility] [place] [facility] [address] [id number] [place] [address]- 6984 Apr, [facility] [place] [facility] [address] [id number] [place] [address]- 0512 Apr, [facility] [place] [facility] [address] [id number] [place] [address]- 4229 Apr, [facility] [place] [facility] [address] [id number] [place] [address]- 5179 Apr, [facility] [place] [facility] [address] [id number] [place] [address]- 2473 Apr, [facility] [place] [facility] [address] [id number] [place] [address]- 5736 Apr, [facility] [place] [facility] [address] [id number] [place] [address]- 0920 Apr, [facility] [place] [facility] [address] [id number] [place] [address]- 5086 Mar, [facility] [place] [facility] [address] [id number] [place] [address]- 5709 Mar, [facility] [place] [facility] [address] [id number] [place] [address]- 0719 Mar, [facility] [place] [facility] [address] [id number] [place] [address]- 9270 Mar, [facility] [place] [facility] [address] [id number] [place] [address]- 9097 Mar, [facility] [place] [facility] [address] [id number] [place] [address]- 4411 Mar, [facility] [place] [facility] [address] [id number] [place] [address]- 3457 15 Mar, 2014 [facility] [place] [facility] [address] [id number] [place] [address]- 5372 15 Mar, 2014 [facility] [place] [facility] [address] [id number] [address]- 0451 15 Mar, 2014 [facility] [place] [facility] [address] [id number] [place] [address]- 6286 15 Mar, 2014 [facility] [place] [facility] [address] [id number] [place] [address]- 9325 15 Mar, 2014 [facility] [place] [facility] [address] [id number] [place] [address]- 4726 15 Mar, 2014 [facility] [place] [facility] [address] [id number] [place] [address]- 7268 Mar, [facility] [place] [facility] [address] [id number] [place] [address]- 3282 Mar, [facility] [place] [facility] [address] [id number] [place] [address]- 6664 Mar, [facility] [place] [facility] [address] [id number] [place] [address]- 3333 Mar, [facility] [place] [facility] [address] [id number] [place] [address]- 1446 Mar, [facility] [place] [facility] [address] [id number] [place] [address]- 2789 Mar, [facility] [place] [facility] [address] [id number] [place] [address]- 5984 Feb, [facility] [place] [facility] [address] [id number] [place] [address]- 4876 Feb, [facility] [place] [facility] [address] [id number] [place] [address]- 9766 Feb, [facility] [place] [facility] [address] [id number] [place] [address]- 8143 Feb, [facility] [place] [facility] [address] [facility] [id number] [place] [address]- 3654 Feb, [facility] [place] [facility] [address] [id number] [place] [address]- 7784 Feb, [facility] [place] [facility] [address] [id number] [place] [address]- 9456 Feb, [facility] [place] [facility] [address] [id number] [place] 0207 Feb, [facility] [place] [facility] [address] [id number] [place] [address]- 1713 Jan, [facility] [place] [facility] [address] [id number] [place] [address]- 6235 Jan, [facility] [place] [facility] [address] [id number] [place] [address]- 4830 Jan, [facility] [place] [facility] [address] [id number] [place] [address]- 5409 Jan, [facility] [place] [facility] [address] [id number] [place] [address]- 5190 Jan, [facility] [place] [facility] [address] [id number] [place] [address]- 1804 Jan, [facility] [place] [facility] [address] [id number] [place] [address]- 6228 Jan, [facility] [place] [facility] [address] [id number] [place] [address] Jan, [facility] [place] [facility] [address] [id number] [place] [address] Jan, [facility] [place] [facility] [address] [id number] [place] [address] Jan, [facility] [place] [facility] [address] [id number] [place] [address] Jan, [facility] [place] [facility] [address] [id number] [place] [address] Jan, [facility] [place] [facility] [address] [id number] [place] [address] 1214 Jan, [facility] [place] [facility] [address] [id number] [place] [address] Jan, [facility] [place] [facility] [address] [id number] [place] [address] 84[address] Jan, [facility] [place] [facility] [address] [id number] [place] [address] 16 Jan, 2014 [facility] [place] [facility] [address] [id number] [place] [address] Jan, [facility] [place] [facility] [address] [id number] [place] [address] 13 Jan, 2014 [facility] [place] [facility] [address] [id number] [place] [address] 2546 29 Sep, 2013 [facility] [place] [facility] [address] [id number] [place] [address] 2546 29 Dec, 2013 [facility] [place] [facility] [address] [id number] [place] [address] 2546 26 Dec, 2013 [facility] [place] [facility] [address] [id number] [place] [address] 2546 26 Dec, 2013 [facility] [place] [facility] [address] [id number] [place] [address] 2544 26 Dec, 2013 [facility] [place] [facility] [address] [id number] [place] [address]- [address] 26 Dec, 2013 [facility] [place] [facility] [address] [id number] [place] [address]757 23 Dec, 2013 [facility] [place] [facility] [address] [id number] [place] [address]- 8901 23 Dec, 2013 [facility] [place] [facility] [address] [id number] [place] [address] 2541 22 Dec, 2013 [facility] [place] [facility] [address] [id number] [place] [address] 254 22 Dec, 2013 [facility] [place] [facility] [address] [id number] [place] [address] 2545 16 Dec, 2013 [facility] [place] [facility] [address] [id number] [place] [address]- [address]46 16 Dec, 2013 [facility] [place] [facility] [address] [id number] [place] [address] 2546 15 Dec, 2013 [facility] [place] [facility] [address] [id number] [place] [address] 2546 15 Dec, 2013 [facility] [place] [facility] [address] [id number] [place] [address]- [address]40 09 Dec, 2013 [facility] [place] [facility] [address] [id number] [place] [address] Dec, [facility] [place] [facility] [address] [id number] [place] [address]- [address]873 Dec, [facility] [place] [facility] [address] [id number] [place] [address] 9907 Nov, [facility] [place] [facility] [address] [id number] [place] [address] Nov, [facility] [place] [facility] [address] [id number] [place] [address]- 5826 Nov, [facility] [place] [facility] [address] [id number] [place] [address]- 1729 Nov, [facility] [place] [facility] [address] [id number] [place] [address]- 8128 Nov, [facility] [place] [facility] [address] [id number] [place] [address]107 Nov, [facility] [place] [facility] [address] [id number] [place] [address] 48[address] Nov, [facility] [place] [facility] [address] [id number] [place] [address]- 5[address] Nov, [facility] [place] [facility] [address] [id number] [place] [address]- 1182 Nov, [facility] [place] [facility] [address] [id number] [place] [address]- 1739 Nov, [facility] [place] [facility] [address] [id number] [place] [address]- 8991 Nov, [facility] [place] [facility] [address] [id number] [place] [address]- [address] Nov, [facility] [place] [facility] [address] [id number] [place] [address] 6096 Nov, [facility] [place] [facility] [address] [id number] [place] [address]- 8812 Nov, [facility] [place] [facility] [address] [id number] [place] [address]- [address] Nov, [facility] [place] [facility] [address] [id number] [place] [address]- 7245 Nov, [facility] [place] [facility] [address] [id number] [place] [address]- 5795 Nov, [facility] [place] [facility] [address] [id number] [place] [address]- 8479 Nov, [facility] [place] [facility] [address] [id number] [place] [address]- [address]777 Nov, [facility] [place] [facility] [address] [id number] [place] [address]- 4096 Nov, [facility] [place] [facility] [address] [id number] [place] [address]- 7599 Nov, [facility] [place] [facility] [address] [id number] [place] [address]- 8017 Oct, [facility] [place] [facility] [address] [id number] [place] [address]- 287[address] Oct, [facility] [place] [facility] [address] [id number] [place] [address]- 2073 Oct, [facility] [place] [facility] [address] [id number] [place] [address]- 4270 Oct, [facility] [place] [facility] [address] [id number] [place] [address]- 2629 Oct, [facility] [place] [facility] [address] [id number] [place] [address]- 1596 Oct, [facility] [place] [facility] [address] [id number] [place] [address]- 4464 Oct, [facility] [place] [facility] [address] [id number] [place] [address]- 2861 Oct, [facility] [place] [facility] [address] [id number] [place] [address]- [address]44 15 Oct, 2013 [facility] [place] [facility] [address] [id number] [place] [address]- 9217 14 Oct, 2013 [facility] [place] [facility] [address] [id number] [place] [address]- 8283 Oct, [facility] [place] [facility] [address] [id number] [place] [address]- 4630 Oct, [facility] [place] [facility] [address] [id number] [place] [address] Oct, [facility] [place] [facility] [address] [id number] [place] [address] 3350 Oct, [facility] [place] [facility] [address] [id number] [place] [address] 6919 Oct, [facility] [place] [facility] [address] [id number] [place] [address] 5048 Sep, [facility] [place] [facility] [address] [id number] [place] [address]- 2744 Sep, [facility] [place] [facility] [address] [id number] [place] [address]- 6163 Sep, [facility] [place] [facility] [address] [id number] [place] [address]- 1017 Sep, [facility] [place] [facility] [address] [id number] [place] [address]- 3877 Sep, [facility] [place] [facility] [address] [id number] [place] [address]- 7534 Sep, [facility] [place] [facility] [address] [id number] [place] [address]- 9889 Sep, [facility] [place] [facility] [address] [id number] [place] [address]- 0788 Sep, [facility] [place] [facility] [address] [id number] [place] [address]- 6398 17 Sep, 2013 [facility] [place] [facility] [address] [id number] [place] [address]- 5929 Sep, [facility] [place] [facility] [address] [id number] [place] [address]- 8237 Sep, [facility] [place] [facility] [address] [id number] [place] [address]- 5267 Sep, [facility] [place] [facility] [address] [id number] [place] [address]- 0893 Sep, [facility] [place] [facility] [address] [id number] [place] [address]- 4913 Sep, [facility] [place] [facility] [address] [id number] [place] [address]- 7453 Sep, [facility] [place] [facility] [address] [id number] [place] [address]- 7706 Sep, [facility] [place] [facility] [address] [id number] [place] [address]- 1355 Sep, [facility] [place] [facility] [address] [id number] [place] [address]- 6354 Sep, [facility] [place] [facility] [address] [id number] [place] [address]- 0320 Sep, [facility] [place] [facility] [address] [id number] [place] [address]- 5423 Sep, [facility] [place] [facility] [address] [id number] [place] [address]- 4654 Sep, [facility] [place] [facility] [address] [id number] [place] [address]- 2381 Sep, [facility] [place] [facility] [address] [id number] [place] [address]- 8597 August, [facility] [place] [facility] [address] [id number] [place] [address]- 1726 August, [facility] [place] [facility] [address] [id number] [place] [address]- 4035 August, [facility] [address] [id number] [place] [address]- 2190 August, [facility] [place] [facility] [address] [id number] [place] [address]- 5861 August, [facility] [place] [facility] [address] [id number] [place] [address]- 4964 August, [facility] [place] [facility] [address] [id number] [place] [address]- 3214 August, [facility] [place] [facility] [address] [id number] [place] [address]- 1839 August, [facility] [place] [facility] [address] [id number] [place] [address]- [address] August, [facility] [place] [facility] [address] [id number] [place] [address]- 7173 August, [facility] [place] [facility] [address] [id number] [place] [address]- 3275 August, [facility] [place] [facility] [address] [id number] [place] [address] 1951 August, [facility] [place] [facility] [address] [id number] [place] [address]- 4784 August, [facility] [place] [facility] [address] [id number] [place] [address]- 3390 August, [facility] [place] [facility] [address] [id number] [place] [address]- 8584 August, [facility] [place] [facility] [address] [id number] [place] [address]- 7171 August, [facility] [place] [facility] [address] [id number] [place] [address]- 0071 August, [facility] [place] [facility] [address] [id number] [place] [address]- 4857 August, [facility] [place] [facility] [address] [id number] [place] [address]- 2941 Jul, [facility] [place] [facility] [address] [id number] [place] [address]- 7299 Jul, [facility] [place] [facility] [address] [id number] [place] [address]- 9049 Jul, [facility] [place] [facility] [address] [id number] [place] [address]- 6256 Jul, [facility] [place] [facility] [address] [id number] [place] [address]- 7793 Jul, [facility] [place] [facility] [address] [id number] [place] [address]- 4156 Jul, [facility] [place] [facility] [address] [id number] [place] [address]- 0054 Jul, [facility] [place] [facility] [address] [id number] [place] [address]- 0630 Jul, [facility] [place] [facility] [address] [id number] [place] [address]- 2344 Jul, [facility] [place] [facility] [address] [id number] [place] [address]- 9972 Jul, [facility] [place] [facility] [address] [id number] [place] [address]- 0581 Jul, [facility] [place] [facility] [address] [id number] [place] [address]- 8886 Jul, [facility] [place] [facility] [address] [id number] [place] [address]- 7201 Jul, [facility] [place] [facility] [address] [id number] [place] [address]- 7840 Jul, [facility] [place] [facility] [address] [id number] [place] [address]- 5636 Jul, [facility] [place] [facility] [address] [id number] [place] [address]- 9538 Jul, [facility] [place] [facility] [address] [id number] [place] [address]- 4977 17 Jul, 2013 [facility] [place] [facility] [address] [id number] [place] [address]- 8571 16 Jul, 2013 [facility] [place] [facility] [address] [id number] [place] [address]- 9526 16 Jul, 2013 [facility] [place] [facility] [address] [id number] [place] [address]- 4947 15 Jul, 2013 [facility] [place] [facility] [address] [id number] [place] [address]- 6836 15 Jul, 2013 [facility] [place] [facility] [address] [id number] [place] [address]- 6866 14 Jul, 2013 [facility] [place] [facility] [address] [id number] [place] [address]- 1913 Jul, [facility] [place] [facility] [address] [id number] [place] [address]- 6234 Jul, [facility] [place] [facility] [address] [id number] [place] [address]- 2603 Jul, [facility] [place] [facility] [address] [id number] [place] [address]- 2600 Jul, [facility] [place] [facility] [address] [id number] [place] [address]- 4504 Jul, [facility] [place] [facility] [address] [id number] [place] [address]- 1542 Jul, [facility] [place] [facility] [address] [id number] [place] [address]- 3784 Jul, [facility] [place] [facility] [address] [id number] [place] [address]- 6145 Jun, [facility] [place] [facility] [address] [id number] [place] [address]- 8097 Jun, [facility] [place] [facility] [address] [id number] [place] [address]- 6797 17 Jun, 2013 [facility] [place] [facility] [address] [id number] [place] [address]- 6656 17 Jun, 2013 [facility] [place] [facility] [address] [id number] [place] [address]- 2420 Jun, [facility] [place] [facility] [address] [id number] [place] [address]- 5921 Jun, [facility] [place] [facility] [address] [id number] [place] [address]- 0525 Jun, [facility] [place] [facility] [address] [id number] [place] [address]- 7925 Jun, [facility] [place] [facility] [address] [id number] [place] [address]- 7110 Jun, [facility] [place] [facility] [address] [facility] [id number] [place] [address]- 9878 Jun, [facility] [place] [facility] [address] [id number] [place] [address]- 6308 Jun, [facility] [place] [facility] [address] [id number] [place] [address]- 7915 Jun, [facility] [place] [facility] [address] [facility] [id number] [place] [address]- 0668 May, [facility] [place] [facility] [address] [id number] [place] [address]- 2597 May, [facility] [place] [facility] [address] [id number] [place] [address]- 2928 May, [facility] [place] [facility] [address] [id number] [place] [address]- 8255 May, [facility] [place] [facility] [address] [id number] [place] [address]- 2459 May, [facility] [place] [facility] [address] [facility] [id number] [place] [address]- 8188 May, [facility] [place] [facility] [address] [id number] [place] [address]- 4801 May, [facility] [place] [facility] [address] [id number] [place] [address]- 3770 May, [facility] [place] [facility] [address] [id number] [place] [address]- 4656 May, [facility] [place] [facility] [address] [id number] [place] [address]- 0458 May, [facility] [place] [facility] [address] [id number] [place] [address]- 1212 Apr, [facility] [place] [facility] [address] [id number] [place] [address]- 2807 Apr, [facility] [place] [facility] [address] [id number] [place] [address]- 1925 Apr, [facility] [place] [facility] [address] [id number] [place] [address]- 2052 Apr, [facility] [place] [facility] [address] [id number] [place] [address]- 1465 Apr, [facility] [place] [facility] [address] [id number] [place] [address]- 4542 Apr, [facility] [place] [facility] [address] [id number] [place] [address]- 6237 Apr, [facility] [place] [facility] [address] [id number] [place] [address]- 2119 Apr, [facility] [place] [facility] [address] [id number] [place] [address]- 2427 Apr, [facility] [place] [facility] [address] [id number] [place] [address]- 7557 Apr, [facility] [place] [facility] [address] [id number] [place] [address]- 5892 Mar, [facility] [place] [facility] [address] [id number] [place] [address]- 5992 Mar, [facility] [place] [facility] [address] [id number] [place] [address]- 4894 Mar, [facility] [place] [facility] [address] [id number] [place] [address]- 2175 Mar, [facility] [place] [facility] [address] [id number] [place] [address]- 8006 Mar, [facility] [place] [facility] [address] [id number] [place] [address]- 5069 Mar, [facility] [place] [facility] [address] [id number] [place] [address]- 0085 Feb, [facility] [place] [facility] [address] [id number] [place] [address]- 3996 Feb, [facility] [place] [facility] [address] [facility] [id number] [place] [address]- 4744 Feb, [facility] [place] [facility] [address] [id number] [place] [address]- 0967 Jan, [facility] [place] [facility] [address] [facility] [id number] [place] [address]- 1358 30 Jan, 2013 [facility] [place] [facility] [address] [facility] [id number] [place] [address]- 6357 Jan, [facility] [place] [facility] [address] [id number] [place] [address]- 1907 28 Jan, 2013 [facility] [place] [facility] [address] [id number] [place] [address]- 2469 15 Jan, 2013 [facility] [place] [facility] [address] [id number] [place] [address]- 6211 15 Jan, 2013 [facility] [place] [facility] [address] [facility] [id number] [place] [address]- 9372 Jan, [facility] [place] [facility] [address] [facility] [id number] [place] [address]- 2967 11 Jan, 2013 [facility] [place] [facility] [address] [id number] [place] [address]- 8981 Jan, [facility] [place] [facility] [address] [id number] [place] [address]- 1695 Jan, [facility] [place] [facility] [address] [id number] [place] [address]- 9046 30 Dec, 2012 [facility] [place] [facility] [address] [id number] [place] [address]- 5956 25 Dec, 2012 [facility] [place] [facility] [address] [id number] [place] [address]- 4829 11 Dec, 2012 [facility] [place] [facility] [address] [id number] [place] [address]- 2252 Dec, 2012 [facility] [place] [facility] [address] [id number] [place] [address]- 5071 05 Dec, 2012 [facility] [place] [facility] [address] [id number] [place] [address]- 7211 Dec, 2012 [facility] [place] [facility] [address] [id number] [place] [address]- 7769 Nov, [facility] [place] [facility] [address] [id number] [place] [address]- 6554 Nov, [facility] [place] [facility] [address] [id number] [place] [address]- 1069 Nov, [facility] [place] [facility] [address] [id number] [place] [address]- 5552 Nov, [facility] [place] [facility] [address] [id number] [place] [address] 2543 Nov, [facility] [place] [facility] [address] [id number] [place] [address]- 8166 Nov, [facility] [place] [facility] [address] [id number] [place] [address]- 2545 Nov, [facility] [place] [facility] [address] [id number] [place] [address]- 4464 Nov, [facility] [address] [id number] [place] [address]- 2217 Nov, [facility] [place] [facility] [address] [id number] [place] [address]- 1212 Nov, [facility] [place] [facility] [address] [id number] [place] [address]- 0805 Nov, [facility] [place] [facility] [address] [id number] [place] [address]- 5430 Nov, [facility] [place] [facility] [address] [id number] [place] [address]- 6209 Oct, [facility] [place] [facility] [address] [id number] [place] [address]- 0168 Oct, [facility] [place] [facility] [address] [id number] [place] [address]- 9387 Oct, [facility] [place] [facility] [address] [id number] [place] [address]- 9616 Sep, [facility] [place] [facility] [address] [id number] [place] [address]- 6523 Sep, [facility] [place] [facility] [address] [id number] [place] [address]- 3694 Sep, [facility] [place] [facility] [address] [id number] [place] [address]- 7543 August, [facility] [place] [facility] [address] [id number] [place] [address]- 7104 August, [facility] [place] [facility] [address] [id number] [place] [address]- 0196 August, [facility] [place] [facility] [address] [id number] [place] [address]- 1674 August, [facility] [place] [facility] [address] [id number] [place] [address]- 7307 August, [facility] [place] [facility] [address] [id number] [place] [address]- 6559 August, [facility] [address] [id number] [place] [address]- 5217 30 Jul, 2012 [facility] [place] [facility] [address] [id number] [place] [address]- 5706 15 Jul, 2012 [facility] [address] [id number] [place] [address]- 5658 Jul, [facility] [place] [facility] [address] [id number] [place] [address]- 8686 Jul, [facility] [address] [id number] [place] [address]- 2765 Jul, [facility] [place] [facility] [address] [id number] [place] [address]- 6787 Jul, [facility] [address] [id number] [place] [address]- 7315 2012 [facility] [address] [id number] [place] [address]- 4127 20 Jun, 2012 [facility] [address] [id number] [place] [address]- 5544 18 Jun, 2012 [facility] [address] [id number] [place] [address]- 6159 14 Jun, 2012 [facility] [place] [facility] [address] [id number] [place] [address]- 6109 04 Jun, 2012 [facility] [place] [facility] [address] [id number] [place] [address]- 2052 May, [facility] [place] [facility] [address] [id number] [place] [address]- 8740 12 May, 2012 [facility] [place] [facility] [address] [id number] [place] [address]- 1080 May, [facility] [place] [facility] [address] [id number] [place] [address]- 4499 08 May, 2012 [facility] [address] [id number] [place] [address]- 1900 Apr, [facility] [place] [facility] [address] [id number] [place] [address]- 5981 Apr, [facility] [place] [facility] [address] [id number] [place] [address]- 5424 Apr, [facility] [place] [facility] [address] [id number] [place] [address]- 6366 Mar, [facility] [place] [facility] [address] [id number] [place] [address]- 4198 Mar, [facility] [place] [facility] [address] [id number] [place] [address]- 8083 Mar, [facility] [place] [facility] [address] [id number] [place] [address]- 9681 Mar, [facility] [place] [facility] [address] [id number] [place] [address]- 4482 Mar, [facility] [place] [facility] [address] [id number] [place] [address]- 0960 Mar, [facility] [place] [facility] [address] [id number] [place] [address]- 2021 Mar, [facility] [place] [facility] [address] [id number] [place] [address]- 7636 Mar, [facility] [place] [facility] [address] [id number] [place] [address]- 7668 Feb, [facility] [place] [facility] [address] [id number] [place] [address]- 8040 Feb, [facility] [place] [facility] [address] [id number] [place] [address]- 4580 Feb, [facility] [place] [facility] [address] [id number] [place] [address]- 3354 Feb, [facility] [place] [facility] [address] [id number] [place] [address]- 5378 Feb, [facility] [place] [facility] [address] [id number] [place] [address]- 0648 Feb, [facility] [place] [facility] [address] [id number] [place] [address]- 2416 Feb, [facility] [place] [facility] [address] [facility] [id number] [place] [address]- 8422 Feb, [facility] [place] [facility] [address] [id number] [place] [address]- 5722 Feb, [facility] [place] [facility] [address] [id number] [place] [address]- 2481 Feb, [facility] [place] [facility] [address] [facility] [id number] [place] [address]- 0775 Feb, [facility] [place] [facility] [address] [id number] [place] [address]- 9811 Feb, [facility] [place] [facility] [address] [facility] [id number] [place] [address]- 7760 Feb, [facility] [place] [facility] [address] [facility] [id number] [place] [address]- 1946 Feb, [facility] [place] [facility] [address] [facility] [id number] [place] [address]- 0585 Feb, [facility] [place] [facility] [address] [facility] [id number] [place] [address] Feb, [facility] [place] [facility] [address] [facility] [id number] [place] [address] Feb, [facility] [place] [facility] [address] [facility] [id number] [place] [address] Feb, [facility] [place] [facility] [address] [facility] [id number] [place] [address] Jan, [facility] [place] [facility] [address] [facility] [id number] [place] [address] Jan, [facility] [place] [facility] [address] [id number] [place] [address] 22 Jan, 2011 [facility] [place] [facility] [address] [id number] [place] [address] 20 Jan, 2012 [facility] [place] [facility] [address] [id number] [place] [address]- [address] 20 Jan, 2012 [facility] [place] [facility] [address] [id number] [place] [address]- [address] 19 Jan, 2012 [facility] [place] [facility] [address] [id number] [place] [address]- [address] 18 Jan, 2012 [facility] [place] [facility] [address] [id number] [place] [address] 3032 18 Jan, 2012 [facility] [place] [facility] [address] [id number] [place] [address] 15 Jan, 2012 [facility] [place] [facility] [address] [id number] [place] [address]- 3910 15 Jan, 2012 [facility] [place] [facility] [address] [id number] [place] [address]- [address]44 11 Jan, 2012 [facility] [place] [facility] [address] [id number] [place] [address]- 1837 11 Jan, 2012 [facility] [place] [facility] [address] [facility] [id number] [place] [address]- 7914 10 Jan, 2012 [facility] [place] [facility] [address] [id number] [place] [address]- 1135 09 Jan, 2012 [facility] [place] [facility] [address] [id number] [place] [address]- 1312 02 Jan, 2012 [facility] [place] [facility] [address] [id number] [place] [address]- 1746 29 Dec, 2011 [facility] [place] [facility] [address] [id number] [place] [address]- 7246 28 Dec, 2011 [facility] [place] [facility] [address] [id number] [place] [address] Dec, [facility] [place] [facility] [address] [id number] [place] [address]- [address]34 Dec, [facility] [place] [facility] [address] [id number] [place] [address] Nov, [facility] [place] [facility] [address] [id number] [place] [address] 7190 Nov, [facility] [place] [facility] [address] [id number] [place] [address]- [address]453 Nov, [facility] [place] [facility] [address] [id number] [place] [address] 6157 Nov, [facility] [place] [facility] [address] [id number] [place] [address]- [address]878 Nov, [facility] [place] [facility] [address] [id number] [place] [address] 6652 Nov, [facility] [place] [facility] [address] [id number] [place] [address]- [address]44 Nov, [facility] [place] [facility] [address] [id number] [place] [address] 295[address] Nov, [facility] [place] [facility] [address] [id number] [place] [address]- 49[address] Nov, [facility] [place] [facility] [address] [id number] [place] [address]- 4681 Nov, [facility] [place] [facility] [address] [id number] [place] [address] Nov, [facility] [place] [facility] [address] [id number] [place] [address] 8649 Oct, [facility] [place] [facility] [address] [id number] [place] [address] 8786 Oct, [facility] [place] [facility] [address] [id number] [place] [address] 1330 Oct, [facility] [place] [facility] [address] [id number] [place] [address]- 9824 Oct, [facility] [place] [facility] [address] [id number] [place] [address]- 3694 Oct, [facility] [place] [facility] [address] [id number] [place] [address] Oct, [facility] [place] [facility] [address] [id number] [place] [address]- 4[address] Oct, [facility] [place] [facility] [address] [id number] [place] [address]- 7469 Oct, [facility] [place] [facility] [address] [id number] [place] [address] 2989 Sep, [facility] [place] [facility] [address] [id number] [place] [address] 2848 Sep, [facility] [place] [facility] [address] [id number] [place] [address]- 6433 Sep, [facility] [place] [facility] [address] [id number] [place] [address]- 8772 Sep, [facility] [place] [facility] [address] [id number] [place] [address]- 3887 Sep, [facility] [place] [facility] [address] [id number] [place] [address]- 7704 Sep, [facility] [place] [facility] [address] [id number] [place] [address]- 9617 Sep, [facility] [place] [facility] [address] [id number] [place] [address]- 1776 August, [facility] [place] [facility] [address] [id number] [place] [address]- 9201 August, [facility] [place] [facility] [address] [id number] [place] [address]- [address]11 August, [facility] [place] [facility] [address] [id number] [place] [address]- 7425 August, [facility] [place] [facility] [address] [id number] [place] [address]- 5446 August, [facility] [address] [id number] [place] [address]- 5[address] August, [facility] [place] [facility] [address] [id number] [place] [address]- 6496 August, [facility] [address] [id number] [place] [address]- 6799 August, [facility] [address] [id number] [place] [address]- [address] Jul, [facility] [place] [facility] [address] [id number] [place] [address]- 8171 17 Jul, 2011 [facility] [address] [id number] [place] [address]- [address]396 Jul, [facility] [address] [id number] [place] [address]- [address] Jul, [facility] [address] [id number] [place] [address]- 1327 Jul, [facility] [address] [id number] [place] [address]- 7798 28 Jun, 2011 [facility] [place] [facility] [address] [id number] [place] [address]- [address] 2011 [facility] [place] [facility] [address] [id number] [place] [address]- 4752 20 Jun, 2011 [facility] [place] [facility] [address] [id number] [place] [address]- 5005 19 Jun, 2011 [facility] [place] [facility] [address] [id number] [place] [address]- 3361 12 Jun, 2011 [facility] [place] [facility] [address] [id number] [place] [address]- [address]761 Jun, [facility] [place] [facility] [address] [id number] [place] [address]- 3976 Jun, [facility] [address] [id number] [place] [address]- 9210 Jun, [facility] [address] [id number] [place] [address]- 3766 Jun, [facility] [address] [id number] [place] [address]- 2076 May, [facility] [address] [id number] [place] [address]- 9606 May, [facility] [address] [id number] [place] [address]- 8916 May, [facility] [address] [id number] [place] [address]- 6506 May, [facility] [address] [id number] [place] [address]- 2902 May, [facility] [address] [id number] [place] [address]- 2959 May, [facility] [address] [id number] [place] [address]- 2179 May, [facility] [address] [facility] [id number] [place] [address] May, [facility] [address] [facility] [id number] [place] [address] Apr, [facility] [place] [facility] [address] [id number] [place] [address] Apr, [facility] [place] [facility] [address] [id number] [place] [address] Apr, [facility] [place] [facility] [address] [id number] [place] [address] Apr, [facility] [address] [facility] [id number] [place] [address] Apr, [facility] [address] [id number] [place] [address] 05 Apr, 2011 [facility] [address] [id number] [place] [address] Mar, [facility] [place] [facility] [address] [id number] [place] [address] Mar, [facility] [place] [facility] [address] [id number] [place] [address] Mar, [facility] [address] [id number] [place] [address] Mar, [facility] [place] [facility] [address] [id number] [place] [address] 15 Mar, 2011 [facility] [address] [id number] [place] [address] Mar, [facility] [place] [facility] [address] [id number] [place] [address] Mar, [facility] [place] [facility] [address] [id number] [place] [address] Mar, [facility] [place] [facility] [address] [id number] [place] [address] Mar, [facility] [place] [facility] [address] [id number] [place] [address] Mar, [facility] [place] [facility] [address] [id number] [place] [address] Mar, [facility] [place] [facility] [address] [id number] [place] [address] Mar, [facility] [place] [facility] [address] [id number] [place] [address] Mar, [facility] [place] [facility] [address] [id number] [place] [address] Feb, [facility] [place] [facility] [address] [id number] [place] [address] Feb, [facility] [place] [facility] [address] [id number] [place] [address] 17 Feb, 2011 [facility] [place] [facility] [address] [id number] [place] [address] Feb, [facility] [place] [facility] [address] [id number] [place] [address] Feb, [facility] [place] [facility] [address] [id number] [place] [address] Feb, [facility] [place] [facility] [address] [id number] [place] [address] Feb, [facility] [place] [facility] [address] [id number] [place] [address] Jan, [facility] [place] [facility] [address] [id number] [place] [address] Jan, [facility] [place] [facility] [address] [id number] [place] [address] Jan, [facility] [place] [facility] [address] [id number] [place] [address] Nov, [facility] [place] [facility] [address] [id number] [place] [address] Mar, [facility] [place] [facility] [address] [id number] [place] [address] Mar, [facility] [place] [facility] [address] [id number] [place] [address] 20 Mar, 2010 [facility] [place] [facility] [address] [id number] [place] [address] 13 Mar, 2010 [facility] [place] [facility] [address] [id number] [place] [address] 07 Mar, 2010 [facility] [place] [facility] [address] [id number] [place] [address] 30 Feb, 2010 [facility] [place] [facility] [address] [facility] [id number] [place] [id number] 30 Feb, 2010 [facility] [address] [facility] [id number] [place] [address] 24 Feb, 2010 [facility] [address] [facility] [id number] [place] [address] Feb, [facility] [address] [facility] [id number] [place] [address] Feb, [facility] [address] [facility] [id number] [place] [address] 15 Feb, 2010 IMMUNIZATIONS No Known Immunizations SOCIAL HISTORY Never Assessed REASON FOR VISIT Patient came in today with to update nurse on pain to bilat sides, she states that she missed her appt with surgeon r/t mastectomy. This nurse encouraged her reschedule that appt and to keep her pending appt with Mi Ferrell at the end of this month. She did request her B/P and WT be checked. Bryant RN PLAN OF CARE VITAL SIGNS Height 60 in 2017-08-23 Weight 207.7 lbs 2017-08-23 BMI 40.56 kg/m2 2017-08-23 Blood pressure systolic 142 mmHg 2017-08-23 Blood pressure diastolic 92 mmHg 2017-08-23 MEDICATIONS Unknown Medications RESULTS No Results PROCEDURES [...] Mastectomy 02/01/2017 Hospitalization History surgeries Hospitalization History [facility] ED 10/06/2017
--- OUTSIDE RECORDS SUMMARY | 2017-12-22 03:45 | XMS REPORT ---
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 Jun, [facility] [place] [facility] [address] [id number] [place] [address]- 7236 Jun, [facility] [place] [facility] [address] [id number] [place] [address]- 5350 Jun, [facility] [place] [facility] [address] [id number] [place] [address]- 3359 Jun, [facility] [place] [facility] [address] [id number] [place] [address]- 7112 Jun, [facility] [place] [facility] [address] [id number] [place] [address]- 2745 Jun, [facility] [place] [facility] [address] [id number] [place] [address]- 6239 Jun, [facility] [place] [facility] [address] [id number] [place] [address]- 7292 Jun, [facility] [place] [facility] [address] [id number] [place] [address]- 9976 Jun, [facility] [place] [facility] [address] [id number] [place] [address]- 2404 Jun, [facility] [place] [facility] [address] [id number] [place] [address]- 4364 Jun, [facility] [place] [facility] [address] [id number] [place] [address]- 5950 Jun, [facility] [place] [facility] [address] [id number] [place] [address]- 7524 Jun, [facility] [place] [facility] [address] [id number] [place] [address]- 9410 Jun, [facility] [place] [facility] [address] [id number] [place] [address]- 7977 18 Jun, 2014 [facility] [place] [facility] [address] [id number] [place] [address]- 2586 18 Jun, 2014 [facility] [place] [facility] [address] [id number] [place] [address]- 9002 18 Jun, 2014 [facility] [place] [facility] [address] [id number] [place] [address]- 3440 18 Jun, 2014 [facility] [place] [facility] [address] [id number] [place] [address]- 6285 17 Jun, 2014 [facility] [place] [facility] [address] [id number] [place] [address]- 2585 17 Jun, 2014 [facility] [place] [facility] [address] [id number] [place] [address]- 5479 17 Jun, 2014 [facility] [place] [facility] [address] [id number] [place] [address]- 9065 17 Jun, 2014 [facility] [place] [facility] [address] [id number] [place] [address]- 1536 13 Jun, 2014 [facility] [place] [facility] [address] [id number] [place] [address]- 3592 13 Jun, 2014 [facility] [place] [facility] [address] [id number] [place] [address]- 7685 12 Jun, 2014 [facility] [place] [facility] [address] [id number] [place] [address]- 7605 12 Jun, 2014 [facility] [place] [facility] [address] [id number] [place] [address]- 7600 10 Jun, 2014 [facility] [place] [facility] [address] [id number] [place] [address]- 8086 10 Jun, 2014 [facility] [place] [facility] [address] [id number] [place] [address]- 3119 10 Jun, 2014 [facility] [place] [facility] [address] [id number] [place] [address]- 0558 10 Jun, 2014 [facility] [place] [facility] [address] [id number] [address]- 3892 Jun, [facility] [place] [facility] [address] [facility] [id number] [place] [address]- 4434 Jun, [facility] [place] [facility] [address] [facility] [id number] [place] 5399 Jun, 2014 [facility] [place] [facility] [address] [facility] [id number] [place] [address]- 4537 Jun, [facility] [place] [facility] [address] [facility] [id number] [place] [address]- 8471 Jun, [facility] [place] [facility] [address] [facility] [id number] [place] [address]- 9397 Jun, [facility] [place] [facility] [address] [facility] [id number] [place] [address]- 4311 May, 2014 [facility] [place] [facility] [address] [facility] [id number] [place] [address]- 6725 May, 2014 [facility] [place] [facility] [address] [facility] [id number] [place] [address]- 2976 May, 2014 [facility] [place] [facility] [address] [facility] [id number] [place] [address]- 1534 May, 2014 [facility] [place] [facility] [address] [facility] [id number] [place] [address]- 5598 May, 2014 [facility] [place] [facility] [address] [facility] [id number] [place] [address]- 7502 May, 2014 [facility] [place] [facility] [address] [facility] [id number] [place] [address]- 0818 May, 2014 [facility] [place] [facility] [address] [facility] [id number] [place] [address]- 8318 May, 2014 [facility] [place] [facility] [address] [facility] [id number] [place] [address]- 6551 May, 2014 [facility] [place] [facility] [address] [facility] [id number] [place] [address]- 5142 May, 2014 [facility] [place] [facility] [address] [id number] [place] [address]- 2741 May, [facility] [place] [facility] [address] [id number] [place] [address]- 2446 May, 2014 [facility] [place] [facility] [address] [id number] [place] [address]- 8349 May, 2014 [facility] [place] [facility] [address] [id number] [place] [address]- 7357 May, 2014 [facility] [place] [facility] [address] [id number] [place] [address]- 8393 May, [facility] [place] [facility] [address] [id number] [place] [address]- 5074 May, [facility] [place] [facility] [address] [facility] [id number] [place] [address]- 1779 Apr, [facility] [place] [facility] [address] [id number] [place] [address]- 6761 Apr, [facility] [place] [facility] [address] [id number] [place] [address]- 2928 Apr, [facility] [place] [facility] [address] [facility] [id number] [place] [address]- 7467 Apr, [facility] [place] [facility] [address] [facility] [id number] [place] [address]- 6142 Apr, [facility] [place] [facility] [address] [id number] [place] [address]- 7534 Apr, [facility] [place] [facility] [address] [id number] [place] [address]- 7522 Apr, [facility] [place] [facility] [address] [facility] [id number] [place] [address]- 6946 Apr, [facility] [place] [facility] [address] [facility] [id number] [place] [address]- 8302 Apr, [facility] [place] [facility] [address] [id number] [place] [address]- 2151 Apr, [facility] [address] [id number] [place] [address]- 5093 Apr, [facility] [place] [facility] [address] [id number] [place] [address]- 1845 Apr, [facility] [place] [facility] [address] [id number] [place] [address]- 6799 Apr, [facility] [place] [facility] [address] [id number] [place] [address]- 6863 Apr, [facility] [place] [facility] [address] [id number] [place] [address]- 9755 Apr, [facility] [place] [facility] [address] [id number] [place] [address]- 4242 Mar, [facility] [address] [id number] [place] [address]- 3188 Mar, [facility] [address] [id number] [place] [address]- 7[address] Mar, [facility] [place] [facility] [address] [id number] [place] [address] Mar, [facility] [place] [facility] [address] [id number] [place] [address] Mar, [facility] [place] [facility] [address] [id number] [place] [address] Mar, [facility] [place] [facility] [address] [id number] [place] [address] 15 Mar, 2014 [facility] [place] [facility] [address] [id number] [place] [address] Mar, [facility] [place] [facility] [address] [id number] [place] [address] Mar, [facility] [place] [facility] [address] [id number] [place] [address] Mar, [facility] [place] [facility] [address] [id number] [place] [address] Mar, [facility] [place] [facility] [address] [id number] [place] [address] Mar, [facility] [place] [facility] [address] [id number] [place] [address] Mar, [facility] [place] [facility] [address] [id number] [place] [address] Mar, [facility] [place] [facility] [address] [id number] [place] [address] Mar, [facility] [place] [facility] [address] [id number] [place] [address] Mar, [facility] [place] [facility] [address] [id number] [place] [address]- [address] Mar, [facility] [place] [facility] [address] [id number] [place] [address] Mar, [facility] [place] [facility] [address] [id number] [place] [address] Feb, [facility] [place] [facility] [address] [id number] [place] [address] Feb, [facility] [place] [facility] [address] [id number] [place] [address] Feb, [facility] [place] [facility] [address] [id number] [place] [address] Feb, [facility] [place] [facility] [address] [id number] [place] [address] Feb, [facility] [place] [facility] [address] [id number] [place] [address] Feb, [facility] [place] [facility] [address] [id number] [place] [address] Feb, [facility] [place] [facility] [address] [id number] [place] [address] Feb, [facility] [place] [facility] [address] [id number] [place] [address] Jan, [facility] [place] [facility] [address] [id number] [place] [address] Jan, [facility] [place] [facility] [address] [id number] [place] [address] Jan, [facility] [place] [facility] [address] [id number] [place] [address] Jan, [facility] [place] [facility] [address] [id number] [place] [address]- [address] Jan, [facility] [place] [facility] [address] [id number] [place] [address]- [address] Jan, [facility] [place] [facility] [address] [id number] [place] [address] Jan, [facility] [place] [facility] [address] [id number] [place] [address] Jan, [facility] [place] [facility] [address] [id number] [place] [address]- [address] Jan, [facility] [place] [facility] [address] [id number] [place] [address] Jan, [facility] [place] [facility] [address] [id number] [place] [address] Jan, [facility] [place] [facility] [address] [id number] [place] [address] Jan, [facility] [place] [facility] [address] [id number] [place] [address] Jan, [facility] [place] [facility] [address] [id number] [place] [address] Jan, [facility] [place] [facility] [address] [id number] [place] [address] 16 Jan, 2014 [facility] [place] [facility] [address] [id number] [place] [address]- [address] 16 Jan, 2013 [facility] [place] [facility] [address] [id number] [place] [address] 13 Jan, 2014 [facility] [place] [facility] [address] [id number] [place] [address] 13 Jan, 2013 [facility] [place] [facility] [address] [id number] [place] [address]- [address] 29 Sep, 2013 [facility] [place] [facility] [address] [id number] [place] [address]- [address] 29 Sep, 2013 [facility] [place] [facility] [address] [id number] [place] [address]- [address] 26 Sep, 2013 [facility] [place] [facility] [address] [id number] [place] [address] 26 Sep, 2013 [facility] [place] [facility] [address] [id number] [place] [address]- [address] 26 Sep, 2013 [facility] [place] [facility] [address] [id number] [place] [address]- [address] 26 Sep, 2013 [facility] [place] [facility] [address] [id number] [place] [address]- [address] 23 Sep, 2013 [facility] [place] [facility] [address] [id number] [place] [address]- [address] 23 Sep, 2013 [facility] [place] [facility] [address] [id number] [place] [address] 2542 22 Sep, 2013 [facility] [place] [facility] [address] [id number] [place] [address] 2541 22 Sep, 2013 [facility] [place] [facility] [address] [id number] [place] [address] 2546 16 Sep, 2013 [facility] [place] [facility] [address] [id number] [place] [address]- 2546 16 Sep, 2013 [facility] [place] [facility] [address] [id number] [id number] [address] 15 Dec, 2013 [facility] [place] [facility] [address] [id number] [place] [address]- 2997 15 Dec, 2013 [facility] [place] [facility] [address] [id number] [place] [address] 6159 Dec, [facility] [place] [facility] [address] [id number] [place] [address]- 7800 Dec, [facility] [place] [facility] [address] [id number] [place] [address]- 5700 Dec, [facility] [place] [facility] [address] [id number] [place] [address]- 0380 Nov, [facility] [place] [facility] [address] [id number] [place] [address]- 9736 Nov, [facility] [place] [facility] [address] [id number] [place] [address]- 4520 Nov, [facility] [place] [facility] [address] [id number] [place] [address]- 2518 Nov, [facility] [place] [facility] [address] [id number] [place] [address]- 2223 Nov, [facility] [place] [facility] [address] [id number] [place] [address]- 0549 Nov, [facility] [place] [facility] [address] [id number] [place] [address]- 7416 Nov, [facility] [place] [facility] [address] [id number] [place] [address]- 1199 Nov, [facility] [place] [facility] [address] [id number] [place] [address]- 1120 Nov, [facility] [place] [facility] [address] [id number] [place] [address]- 2855 Nov, [facility] [place] [facility] [address] [id number] [place] [address]- 0720 Nov, [facility] [place] [facility] [address] [id number] [place] [address]- 1717 Nov, [facility] [place] [facility] [address] [id number] [place] [address]- 0657 Nov, [facility] [place] [facility] [address] [id number] [place] [address]- 9746 Nov, [facility] [place] [facility] [address] [id number] [place] [address]- 3657 Nov, [facility] [place] [facility] [address] [id number] [place] [address]- 2818 Nov, [facility] [place] [facility] [address] [id number] [place] [address]- 1890 Nov, [facility] [place] [facility] [address] [id number] [place] [address]- 4919 Nov, [facility] [place] [facility] [address] [id number] [place] [address]- 3043 Nov, [facility] [place] [facility] [address] [id number] [place] [address]- 3412 Nov, [facility] [place] [facility] [address] [id number] [place] [address]- 9851 Nov, [facility] [place] [facility] [address] [id number] [place] [address]- 8713 Oct, [facility] [place] [facility] [address] [id number] [place] [address]- 7364 Oct, [facility] [place] [facility] [address] [id number] [place] [address]- 9333 Oct, [facility] [place] [facility] [address] [id number] [place] [address]- 7513 Oct, [facility] [place] [facility] [address] [id number] [place] [address]- 8280 Oct, [facility] [place] [facility] [address] [id number] [place] [address]- 4482 Oct, [facility] [place] [facility] [address] [id number] [place] [address]- 3458 Oct, [facility] [place] [facility] [address] [id number] [place] [address]- 9096 Oct, [facility] [place] [facility] [address] [id number] [place] [address]- 8546 Oct, [facility] [place] [facility] [address] [id number] [place] [address]- 5048 Oct, [facility] [place] [facility] [address] [id number] [place] [address]- 8295 Oct, [facility] [place] [facility] [address] [id number] [place] [address]- 9742 Oct, [facility] [place] [facility] [address] [id number] [place] [address]- 5119 Oct, [facility] [place] [facility] [address] [id number] [place] [address]- 3523 Oct, [facility] [place] [facility] [address] [id number] [place] [address]- 5065 Oct, [facility] [place] [facility] [address] [id number] [place] [address]- 7158 Sep, [facility] [place] [facility] [address] [id number] [place] [address]- 1369 Sep, [facility] [place] [facility] [address] [id number] [place] [address]- 3804 Sep, [facility] [place] [facility] [address] [id number] [place] [address]- 0700 Sep, [facility] [place] [facility] [address] [id number] [place] [address]- 9263 Sep, [facility] [place] [facility] [address] [id number] [place] [address]- 5822 Sep, [facility] [place] [facility] [address] [id number] [place] [address]- 7162 18 Sep, 2013 [facility] [place] [facility] [address] [id number] [place] [address]- 0322 18 Sep, 2013 [facility] [place] [facility] [address] [id number] [place] [address]- 7856 17 Sep, 2013 [facility] [place] [facility] [address] [id number] [place] [address]- 3177 Sep, [facility] [place] [facility] [address] [id number] [place] [address]- 5560 Sep, [facility] [place] [facility] [address] [id number] [place] [address]- 3544 Sep, [facility] [place] [facility] [address] [id number] [place] [address]- 9297 Sep, [facility] [place] [facility] [address] [id number] [place] [address]- 6781 Sep, [facility] [place] [facility] [address] [id number] [address]- 2055 Sep, [facility] [place] [facility] [address] [id number] [place] [address]- 2920 Sep, [facility] [place] [facility] [address] [id number] [place] [address]- 0831 Sep, [facility] [place] [facility] [address] [id number] [place] [address]- 3731 Sep, [facility] [place] [facility] [address] [id number] [place] [address]- 6955 Sep, [facility] [place] [facility] [address] [id number] [place] [address]- 9286 Sep, [facility] [place] [facility] [address] [id number] [place] [address]- 2570 Sep, [facility] [place] [facility] [address] [id number] [place] [address]- 3479 Sep, [facility] [place] [facility] [address] [id number] [place] [address]- 1708 August, [facility] [address] [id number] [place] [address]- 7917 August, [facility] [address] [id number] [place] [address] August, [facility] [address] [id number] [place] [address]- 9426 August, [facility] [address] [id number] [place] [address]- 8176 August, [facility] [address] [id number] [place] [address] August, [facility] [address] [id number] [place] [address]- 3724 August, [facility] [address] [id number] [place] [address]- 0613 August, [facility] [address] [id number] [place] [address]- 2416 August, [facility] [address] [id number] [place] [address]- 9164 August, [facility] [address] [id number] [place] [address]- 2595 August, [facility] [place] [facility] [address] [id number] [place] [address]- 1564 August, [facility] [place] [facility] [address] [id number] [place] [address]- 0188 August, [facility] [place] [facility] [address] [id number] [place] [address]- 4475 August, [facility] [place] [facility] [address] [id number] [place] [address]- 5668 August, [facility] [place] [facility] [address] [id number] [place] [address]- 9794 August, [facility] [address] [id number] [place] [address]- 9803 August, [facility] [place] [facility] [address] [id number] [place] [address]- 8748 August, [facility] [place] [facility] [address] [id number] [place] [address]- 9170 Jul, [facility] [place] [facility] [address] [id number] [place] [address]- 6967 Jul, [facility] [address] [id number] [place] [address]- 1802 Jul, [facility] [place] [facility] [address] [id number] [place] [address]- 1139 Jul, [facility] [address] [id number] [place] [address]- 1701 Jul, [facility] [address] [id number] [place] [address]- 9161 Jul, [facility] [place] [facility] [address] [id number] [place] [address]- 6763 Jul, [facility] [place] [facility] [address] [id number] [place] [address]- 7125 Jul, [facility] [place] [facility] [address] [id number] [place] [address]- 5006 Jul, [facility] [place] [facility] [address] [id number] [place] [address]- 9265 Jul, [facility] [place] [facility] [address] [id number] [place] [address]- 9032 Jul, [facility] [place] [facility] [address] [id number] [place] [address]- 8811 Jul, [facility] [place] [facility] [address] [id number] [place] [address]- 1939 Jul, [facility] [place] [facility] [address] [id number] [place] [address]- 4681 17 Jul, 2013 [facility] [place] [facility] [address] [id number] [place] [address]- 6264 17 Jul, 2013 [facility] [place] [facility] [address] [id number] [place] [address]- 6229 17 Jul, 2013 [facility] [place] [facility] [address] [id number] [place] [address]- 5000 17 Jul, 2013 [facility] [place] [facility] [address] [id number] [place] [address]- 1257 16 Jul, 2013 [facility] [place] [facility] [address] [id number] [place] [address]- 6613 16 Jul, 2013 [facility] [place] [facility] [address] [id number] [place] [address]- 1982 15 Jul, 2013 [facility] [place] [facility] [address] [id number] [place] [address]- 8402 15 Jul, 2013 [facility] [place] [facility] [address] [id number] [place] [address]- 1881 14 Jul, 2013 [facility] [place] [facility] [address] [id number] [place] [address]- 8674 14 Jul, 2013 [facility] [place] [facility] [address] [id number] [place] [address]- 4199 12 Jul, 2013 [facility] [place] [facility] [address] [id number] [place] [address]- 6790 Jul, [facility] [place] [facility] [address] [id number] [place] [address]- 2673 Jul, [facility] [place] [facility] [address] [id number] [place] [address]- 7761 Jul, [facility] [place] [facility] [address] [id number] [place] [address]- 4584 Jul, [facility] [place] [facility] [address] [id number] [place] [address]- 9098 Jul, [facility] [place] [facility] [address] [id number] [place] [address]- 9646 17 Jun, 2013 [facility] [place] [facility] [address] [id number] [place] [address]- 3366 17 Jun, 2013 [facility] [place] [facility] [address] [id number] [place] [address]- 3646 17 Jun, 2013 [facility] [place] [facility] [address] [id number] [place] [address]- 3066 17 Jun, 2013 [facility] [place] [facility] [address] [id number] [place] [address]- 0113 13 Jun, 2013 [facility] [place] [facility] [address] [id number] [place] [address]- 8176 13 Jun, 2013 [facility] [place] [facility] [address] [id number] [place] [address]- 9440 11 Jun, 2013 [facility] [place] [facility] [address] [id number] [place] [address]- 1134 11 Jun, 2013 [facility] [place] [facility] [address] [id number] [place] [address]- 2397 10 Jun, 2013 [facility] [place] [facility] [address] [id number] [place] [address]- 7504 10 Jun, 2013 [facility] [place] [facility] [address] [id number] [place] [address]- 5544 Jun, [facility] [place] [facility] [address] [id number] [place] [address]- 6795 Jun, [facility] [place] [facility] [address] [id number] [place] [address]- 3065 May, [facility] [place] [facility] [address] [id number] [place] [address]- 2006 May, [facility] [place] [facility] [address] [id number] [place] [address]- 2546 07 May, 2013 [facility] [place] [facility] [address] [id number] [place] [address]- 1167 May, [facility] [place] [facility] [address] [id number] [place] [address]- 6208 May, [facility] [place] [facility] [address] [id number] [place] 8026 May, [facility] [place] [facility] [address] [facility] [id number] [place] [address]- 4296 May, [facility] [place] [facility] [address] [id number] [place] [address]- 1983 May, [facility] [place] [facility] [address] [id number] [place] [address]- 5162 May, [facility] [place] [facility] [address] [facility] [id number] [place] [address]- 9990 May, [facility] [place] [facility] [address] [facility] [id number] [place] [address]- 6835 Apr, [facility] [place] [facility] [address] [facility] [id number] [place] [address]- 0776 Apr, [facility] [place] [facility] [address] [facility] [id number] [place] [address]- 1212 Apr, [facility] [place] [facility] [address] [facility] [id number] [place] [address]- 4140 Apr, [facility] [place] [facility] [address] [facility] [id number] [place] [address]- 3369 Apr, [facility] [place] [facility] [address] [id number] [place] [address]- 5564 Apr, [facility] [place] [facility] [address] [facility] [id number] [place] [address]- 2814 Apr, [facility] [place] [facility] [address] [facility] [id number] [place] [address]- 9719 Apr, [facility] [place] [facility] [address] [facility] [id number] [place] [address]- 9365 Apr, [facility] [place] [facility] [address] [id number] [place] [address]- 2344 Apr, [facility] [place] [facility] [address] [id number] [place] [address]150 Mar, [facility] [place] [facility] [address] [id number] [place] 65[address] Mar, [facility] [place] [facility] [address] [id number] [place] [address]- 6779 Mar, [facility] [place] [facility] [address] [id number] [place] [address]- 0069 Mar, [facility] [place] [facility] [address] [id number] [place] [address]- 5032 Mar, [facility] [place] [facility] [address] [id number] [place] [address]- 4874 Mar, [facility] [place] [facility] [address] [id number] [place] [address]- 1202 Feb, [facility] [place] [facility] [address] [id number] [place] [address]- 0805 Feb, [facility] [place] [facility] [address] [id number] [place] [address]- 2313 Feb, [facility] [place] [facility] [address] [id number] [place] [address]- 1751 Jan, [facility] [place] [facility] [address] [id number] [place] [address]- 9691 30 Jan, 2013 [facility] [place] [facility] [address] [id number] [place] [address]- 5936 Jan, [facility] [place] [facility] [address] [id number] [place] [address]- 8419 28 Jan, 2013 [facility] [place] [facility] [address] [id number] [place] [address]- 2956 15 Jan, 2013 [facility] [place] [facility] [address] [id number] [place] [address]- 4512 15 Jan, 2013 [facility] [place] [facility] [address] [id number] [place] [address]- 9896 Jan, [facility] [place] [facility] [address] [id number] [place] [address]- 1684 Jan, [facility] [place] [facility] [address] [id number] [place] [address]- 0120 Jan, [facility] [place] [facility] [address] [id number] [place] [address]- 3824 Jan, [facility] [place] [facility] [address] [id number] [place] [address]- 6154 30 Dec, 2012 [facility] [place] [facility] [address] [id number] [place] [address]- 1107 Dec, [facility] [place] [facility] [address] [id number] [place] [address]- 8101 Dec, [facility] [place] [facility] [address] [id number] [place] [address]- 4322 Dec, [facility] [place] [facility] [address] [id number] [place] [address]- 1547 05 Dec, 2012 [facility] [place] [facility] [address] [id number] [place] [address]- 8590 Dec, [facility] [place] [facility] [address] [id number] [place] [address]- 3448 Nov, [facility] [place] [facility] [address] [id number] [place] [address]- 2845 Nov, [facility] [place] [facility] [address] [id number] [place] [address]- 5729 Nov, [facility] [place] [facility] [address] [id number] [place] [address]- 4302 Nov, [facility] [place] [facility] [address] [id number] [place] [address]- 4667 Nov, [facility] [place] [facility] [address] [id number] [place] [address]- 0710 Nov, [facility] [address] [id number] [place] [address]- 5188 Nov, [facility] [place] [facility] [address] [id number] [place] [address]- 9596 Nov, [facility] [place] [facility] [address] [id number] [place] [address]- 1644 Nov, [facility] [place] [facility] [address] [id number] [place] [address]- 8657 Nov, [facility] [place] [facility] [address] [id number] [place] [address]- 2989 Nov, [facility] [place] [facility] [address] [id number] [place] [address]- 8657 Nov, [facility] [address] [id number] [place] [address]- 0212 Oct, [facility] [place] [facility] [address] [id number] [place] [address]- 7651 Oct, [facility] [place] [facility] [address] [id number] [place] [address]- 1528 Oct, [facility] [place] [facility] [address] [id number] [place] [address]- 6241 Sep, [facility] [place] [facility] [address] [id number] [place] [address]- 6343 Sep, [facility] [place] [facility] [address] [id number] [place] [address]- 6372 Sep, [facility] [place] [facility] [address] [id number] [place] [address]- 0075 August, [facility] [place] [facility] [address] [id number] [place] [address]- 4091 August, [facility] [place] [facility] [address] [id number] [place] [address]- 6196 August, [facility] [place] [facility] [address] [id number] [place] [address]- 5040 August, [facility] [address] [id number] [place] [address]- 2715 August, [facility] [address] [id number] [place] [address] August, [facility] [address] [id number] [place] [address] Jul, [facility] [address] [id number] [place] [address] Jul, [facility] [address] [id number] [place] [address] Jul, [facility] [address] [id number] [place] [address] Jul, [facility] [address] [id number] [place] [address] Jul, [facility] [address] [id number] [place] [address] Jul, [facility] [address] [id number] [place] [address] Jun, [facility] [address] [id number] [place] [address] Jun, [facility] [address] [id number] [place] [address] 18 Jun, 2012 [facility] [address] [id number] [place] [address] 14 Jun, 2012 [facility] [place] [facility] [address] [id number] [place] [address] 04 Jun, 2012 [facility] [address] [id number] [place] [address] 13 May, 2012 [facility] [address] [id number] [place] [address] May, [facility] [address] [id number] [place] [address] May, [facility] [place] [facility] [address] [id number] [place] [address] May, [facility] [place] [facility] [address] [facility] [id number] [place] [address] Apr, [facility] [place] [facility] [address] [id number] [place] [address] Apr, [facility] [place] [facility] [address] [id number] [place] [address] Apr, [facility] [place] [facility] [address] [id number] [place] [address] Mar, [facility] [address] [facility] [id number] [place] [address] Mar, [facility] [place] [facility] [address] [id number] [place] [address] Mar, [facility] [place] [facility] [address] [id number] [place] [address] Mar, [facility] [place] [facility] [address] [facility] [id number] [place] [address] Mar, [facility] [place] [facility] [address] [id number] [place] [address] Mar, [facility] [place] [facility] [address] [id number] [place] [address] Mar, [facility] [place] [facility] [address] [id number] [place] [address] Mar, [facility] [place] [facility] [address] [id number] [place] [address] Feb, [facility] [place] [facility] [address] [facility] [id number] [place] [address] Feb, [facility] [place] [facility] [address] [id number] [place] [address] Feb, [facility] [place] [facility] [address] [id number] [place] [address] Feb, [facility] [place] [facility] [address] [id number] [place] [address] Feb, [facility] [place] [facility] [address] [id number] [place] [address] Feb, [facility] [place] [facility] [address] [id number] [place] [address] Feb, [facility] [place] [facility] [address] [id number] [place] [address] Feb, [facility] [place] [facility] [address] [id number] [place] [address] Feb, [facility] [place] [facility] [address] [id number] [place] [address] Feb, [facility] [place] [facility] [address] [id number] [place] [address] Feb, [facility] [place] [facility] [address] [id number] [place] [address] Feb, [facility] [place] [facility] [address] [facility] [id number] [place] [address] Feb, [facility] [place] [facility] [address] [id number] [place] [address] Feb, [facility] [place] [facility] [address] [id number] [place] [address] Feb, [facility] [place] [facility] [address] [id number] [place] [address]- [address] Feb, [facility] [place] [facility] [address] [id number] [place] [address] Feb, [facility] [place] [facility] [address] [id number] [place] [address] Feb, [facility] [place] [facility] [address] [id number] [place] [address]- [address] 23 Jan, 2012 [facility] [place] [facility] [address] [id number] [place] [address] Jan, [facility] [place] [facility] [address] [id number] [place] [address] Jan, [facility] [place] [facility] [address] [id number] [place] [address]- [address] Jan, [facility] [place] [facility] [address] [id number] [place] [address]- [address] 20 Jan, 2012 [facility] [place] [facility] [address] [id number] [place] [address]- [address]21 19 Jan, 2012 [facility] [place] [facility] [address] [id number] [place] [address]- [address] 18 Jan, 2012 [facility] [place] [facility] [address] [id number] [place] [address] 18 Jan, 2012 [facility] [place] [facility] [address] [id number] [place] [address]- [address] 15 Jan, 2012 [facility] [place] [facility] [address] [id number] [place] [address] 15 Jan, 2012 [facility] [place] [facility] [address] [id number] [place] [address] 11 Jan, 2012 [facility] [place] [facility] [address] [id number] [place] [address] 11 Jan, 2012 [facility] [place] [facility] [address] [id number] [place] [address] 10 Jan, 2012 [facility] [place] [facility] [address] [id number] [place] [address] 09 Jan, 2012 [facility] [place] [facility] [address] [id number] [place] [address]- [address] 02 Jan, 2012 [facility] [place] [facility] [address] [id number] [place] [address]- 1670 29 Dec, 2011 [facility] [place] [facility] [address] [id number] [place] [address]- 1586 28 Dec, 2011 [facility] [place] [facility] [address] [id number] [place] [address]46 27 Dec, 2011 [facility] [place] [facility] [address] [id number] [place] [address]- [address]306 26 Dec, 2011 [facility] [place] [facility] [address] [id number] [place] [address]- [address] 24 Nov, 2011 [facility] [place] [facility] [address] [id number] [place] [address]- [address] Nov, [facility] [place] [facility] [address] [id number] [place] [address]- 8485 Nov, [facility] [place] [facility] [address] [id number] [place] [address]- 407[address] Nov, [facility] [place] [facility] [address] [id number] [place] [address]- [address]237 Nov, [facility] [place] [facility] [address] [id number] [place] [address]- 27[address] Nov, [facility] [place] [facility] [address] [id number] [place] [address] Nov, [facility] [place] [facility] [address] [id number] [place] [address] Nov, [facility] [place] [facility] [address] [id number] [place] [address]47 Nov, [facility] [place] [facility] [address] [id number] [place] [address]77 Nov, [facility] [place] [facility] [address] [id number] [place] [address] Nov, [facility] [place] [facility] [address] [id number] [place] [address] Oct, [facility] [place] [facility] [address] [id number] [place] [address] Oct, [facility] [place] [facility] [address] [id number] [place] [address] Oct, [facility] [place] [facility] [address] [id number] [place] [address] Oct, [facility] [place] [facility] [address] [id number] [place] [address] Oct, [facility] [place] [facility] [address] [id number] [place] [address]65 Oct, [facility] [place] [facility] [address] [id number] [place] [address] Oct, [facility] [place] [facility] [address] [id number] [place] [address] Oct, [facility] [place] [facility] [address] [id number] [place] [address] Sep, [facility] [place] [facility] [address] [id number] [place] [address] Sep, [facility] [place] [facility] [address] [id number] [place] [address] 8465 Sep, [facility] [place] [facility] [address] [id number] [place] [address] 48[address] Sep, [facility] [place] [facility] [address] [id number] [place] [address] 8[address] Sep, [facility] [place] [facility] [address] [id number] [place] [address] Sep, [facility] [place] [facility] [address] [id number] [place] [address] Sep, [facility] [place] [facility] [address] [id number] [place] [address] August, [facility] [place] [facility] [address] [id number] [place] [address] August, [facility] [address] [id number] [place] [address] August, [facility] [place] [facility] [address] [id number] [place] [address] August, [facility] [address] [id number] [place] [address] August, [facility] [place] [facility] [address] [id number] [place] [address] 1656 August, [facility] [address] [id number] [place] [address] 1515 August, [facility] [address] [id number] [place] [address] 4797 August, [facility] [address] [id number] [place] [address] 28 Jul, 2011 [facility] [place] [facility] [address] [id number] [place] [address]28 17 Jul, 2011 [facility] [address] [id number] [place] [address] 1660 13 Jul, 2011 [facility] [place] [facility] [address] [id number] [place] [address] Jul, [facility] [place] [facility] [address] [id number] [place] [address] 05 Jul, 2011 [facility] [place] [facility] [address] [id number] [place] [address] 6[address] 28 Jun, 2011 [facility] [place] [facility] [address] [id number] [place] [address] 2011 [facility] [place] [facility] [address] [id number] [place] [address]389 20 Jun, 2011 [facility] [place] [facility] [address] [id number] [place] [address] 9878 19 Jun, 2011 [facility] [place] [facility] [address] [id number] [place] [address] 8820 12 Jun, 2011 [facility] [place] [facility] [address] [id number] [place] [address]104 Jun, [facility] [place] [facility] [address] [id number] [place] [address] 3436 Jun, [facility] [place] [facility] [address] [id number] [place] [address] 2626 Jun, [facility] [place] [facility] [address] [id number] [place] [address] 8[address] Jun, [facility] [place] [facility] [address] [id number] [place] [address]97 27 May, 2011 [facility] [place] [facility] [address] [id number] [place] [address]271 24 May, 2011 [facility] [place] [facility] [address] [id number] [place] [address]294 May, [facility] [place] [facility] [address] [id number] [place] [address] 1382 May, [facility] [place] [facility] [address] [id number] [place] [address] 2409 May, [facility] [place] [facility] [address] [facility] [id number] [place] [address] May, [facility] [place] [facility] [address] [facility] [id number] [place] [address]- 4187 May, [facility] [place] [facility] [address] [id number] [place] [address]- 4226 May, [facility] [place] [facility] [address] [id number] [place] [address]- 9316 Apr, [facility] [place] [facility] [address] [id number] [place] [address]- 0257 Apr, [facility] [place] [facility] [address] [facility] [id number] [address] Apr, [facility] [address] [id number] [place] [address] 4867 Apr, [facility] [address] [id number] [place] [address]- 3706 Apr, [facility] [address] [id number] [place] [address]- 4670 Apr, [facility] [address] [id number] [place] [address]- 9079 Mar, [facility] [address] [id number] [place] [address] Mar, [facility] [address] [id number] [place] [address] 4026 Mar, [facility] [address] [id number] [place] [address] 4701 Mar, [facility] [place] [facility] [address] [id number] [place] [address] 8559 15 Mar, 2011 [facility] [address] [id number] [place] [address]- 1053 Mar, [facility] [place] [facility] [address] [id number] [place] [address]- 7324 Mar, [facility] [place] [facility] [address] [id number] [place] [address]- 8072 Mar, [facility] [place] [facility] [address] [id number] [place] [address] Mar, [facility] [place] [facility] [address] [id number] [place] [address]- 3668 Mar, [facility] [place] [facility] [address] [id number] [place] [address]- 4416 05 Mar, 2011 [facility] [place] [facility] [address] [id number] [place] [address]- 6633 05 Mar, 2011 [facility] [place] [facility] [address] [id number] [place] [address]- 6963 05 Mar, 2011 [facility] [address] [id number] [place] [address]- 7681 Feb, [facility] [place] [facility] [address] [id number] [place] [address]- 7756 Feb, [facility] [address] [id number] [place] [address]- 8353 Feb, [facility] [place] [facility] [address] [id number] [place] [address]- 2678 Feb, [facility] [address] [id number] [place] [address]- 1341 Feb, [facility] [address] [id number] [place] [address]- 1094 Feb, [facility] [address] [id number] [place] [address]- 3151 Feb, [facility] [address] [id number] [place] [address]- 8156 Jan, [facility] [address] [id number] [place] [address]- 9714 Jan, [facility] [address] [facility] [id number] [place] [address]- 9320 Jan, [facility] [address] [id number] [place] [address]- 7399 Nov, [facility] [address] [id number] [place] [address]- 9283 Mar, [facility] [place] [facility] [address] [id number] [place] [address]- 8574 Mar, [facility] [place] [facility] [address] [id number] [place] [address]- 5075 Mar, [facility] [place] [facility] [address] [id number] [place] [address] Mar, [facility] [address] [facility] [id number] [place] [address]- 76[address] Mar, [facility] [address] [id number] [address] Feb, [facility] [address] [id number] [address] 9[address] Feb, [facility] [id number] [address] 27[address] Feb, [facility] [address] [id number] [address] 0128 Feb, [facility] [id number] [address] 8771 Feb, [facility] [address] [id number] [address]- [address] Feb, IMMUNIZATIONS No Known Immunizations SOCIAL HISTORY Never Assessed REASON FOR VISIT Medicare AW - Initial Visit -- thania farr PLAN OF CARE Activity Details Follow Up 1 Year Reason: VITAL SIGNS Height 60 in 2017-08-02 Weight 213.0 lbs 2017-08-02 Temperature 98.5 degrees Fahrenheit 2017-08-02 Heart Rate 80 bpm 2017-08-02 Respiratory Rate 22 2017-08-02 BMI 41.59 kg/m2 2017-08-02 Blood pressure systolic 114 mmHg 2017-08-02 Blood pressure diastolic 70 mmHg 2017-08-02 MEDICATIONS Medication Instructions Dosage Frequency Start Date End Date Duration Status Symbicort Active Lisinopril 10 mg Orally Once a day 1 tablet 24h May, 90 days Active Diltiazem HCl 120 MG Orally daily TAKE 1 TABLET BY MOUTH 2 TIMES A DAY 24h Active Oxygen 2 L/NC subcutaneously at night only as directed Jul, Active Omeprazole 20 mg Orally 2 times a day 1 capsule 12h Active Ibuprofen 600 MG Orally every 6 hrs 1 tablet as needed for pain 6h Nov, 30 days Active Levomilnacipran HCl ER 20 mg Orally Once a day 1 capsule 24h Apr, 90 days Active Exemestane 25 MG Orally Once a day 1 tablet with a meal 24h Active Singulair 10 mg Orally Once a day 1 tablet 24h August, 90 days Active Amitriptyline HCl 100 mg Orally Once at bedtime for sleep 1 tablets Active Hydrocodone-Acetaminophen 5-325 MG Orally every 6 hrs 1 tablet as needed 6h Active VESIcare 5 mg Orally Once a day 1 tablet 24h 08 Aug, 2016 Active Ondansetron 4 MG Orally every 8 hrs 1 tablet on the tongue and allow to dissolve 8h May, 10 days Active Requip 4 MG Orally Once a day as directed 24h Feb, 30 days Active Albuterol Sulfate 90 mcg/actuation 2 puffs by Inhalation route every 4-6 hours as needed PRN cough or wheezing Oct, Active Prazosin HCl 2 MG Orally Once a day 1 capsule at bedtime 24h Apr, Active Calcium + D3 600-800 MG-UNIT Orally twice a day 1 tablet with a meal 12h Apr, 90 days Active Albuterol Sulfate (2.5 MG/3ML) 0.083% Inhalation every 4-6 hours as needed for cough or wheeze 3 ml Jan, Active Melatonin 5 MG Orally Once a day 1 tablet at bedtime as needed with food 24h Active RESULTS No Results PROCEDURES Procedure Date Ordered Result Body Site ANNUAL NELANES VST; PERSNL PPS INIT August 02, 2017 FALL RISK ASSESSMENT DOCD August 02, 2017 PT TOBACCO SCREEN RCVD TLK August 02, 2017 INSTRUCTIONS MEDICATIONS ADMINISTERED No Known Medications [...] Mastectomy 02/01/2017 Hospitalization History surgeries Hospitalization History [facility] ED 10/06/2017
--- OUTSIDE RECORDS SUMMARY | 2017-12-22 03:47 | XMS REPORT ---
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 [place] [address]- 4278 Jun, [facility] [place] [facility] [address] [id number], [place] [address]- 5244 19 Jun, 2014 [facility] [place] [facility] [address] [id number] [place] [address]- 5105 18 Jun, 2014 [facility] [place] [facility] [address] [id number] [place] [address]- 0751 18 Jun, 2014 [facility] [place] [facility] [address] [id number] [place] [address]- 9655 18 Jun, 2014 [facility] [place] [facility] [address] [id number] [place] [address]- 8257 18 Jun, 2014 [facility] [place] [facility] [address] [id number] [place] [address]- 5779 17 Jun, 2014 [facility] [place] [facility] [address] [id number] [place] [address]- 9466 17 Jun, 2014 [facility] [place] [facility] [address] [id number] [place] [address]- 5076 17 Jun, 2014 [facility] [place] [facility] [address] [id number] [place] [address]- 5295 17 Jun, 2014 [facility] [place] [facility] [address] [id number] [place] [address]- 0053 13 Jun, 2014 [facility] [place] [facility] [address] [id number] [place] [address]- 4944 13 Jun, 2014 [facility] [place] [facility] [address] [id number] [place] [address]- 4629 12 Jun, 2014 [facility] [place] [facility] [address] [id number] [place] [address]- 8413 12 Jun, 2014 [facility] [place] [facility] [address] [id number] [place] [address]- 7066 10 Jun, 2014 [facility] [place] [facility] [address] [id number] [place] [address]- 5393 10 Jun, 2014 [facility] [place] [facility] [address] [id number] [place] [address]- 3506 10 Jun, 2014 [facility] [place] [facility] [address] [id number] [place] [address]- 7879 10 Jun, 2014 [facility] [place] [facility] [address] [id number] [place] [address]- 2627 06 Jun, 2014 [facility] [place] [facility] [address] [id number] [place] [address]- 3954 06 Jun, 2014 [facility] [place] [facility] [address] [id number] [place] [address]- 9542 Jun, 2014 [facility] [place] [facility] [address] [id number] [place] [address]- 6703 Jun, [facility] [place] [facility] [address] [id number] [place] [address]- 7199 Jun, [facility] [place] [facility] [address] [id number] [place] [address]- 1131 Jun, [facility] [place] [facility] [address] [id number] [place] [address]- 2716 May, 2014 [facility] [place] [facility] [address] [id number] [place] [address]- 0043 May, 2014 [facility] [place] [facility] [address] [id number] [place] [address]- 8149 May, 2014 [facility] [place] [facility] [address] [id number] [place] [address]- 0094 May, 2014 [facility] [place] [facility] [address] [id number] [place] [address]- 2706 May, 2014 [facility] [place] [facility] [address] [id number] [place] [address]- 3849 May, 2014 [facility] [place] [facility] [address] [id number] [place] [address]- 3525 May, 2014 [facility] [place] [facility] [address] [id number] [place] [address]- 6670 May, 2014 [facility] [place] [facility] [address] [id number] [place] [address]- 2091 May, 2014 [facility] [place] [facility] [address] [id number] [place] [address]- 8674 May, 2014 [facility] [place] [facility] [address] [id number] [place] [address]- 7072 May, 2014 [facility] [place] [facility] [address] [id number] [place] [address]- 0845 May, 2014 [facility] [place] [facility] [address] [id number] [place] [address]- 6512 05 May, 2014 [facility] [place] [facility] [address] [id number] [place] [address]- 3902 May, [facility] [place] [facility] [address] [id number] [place] [address]- 8016 May, [facility] [place] [facility] [address] [id number] [place] [address]- 1994 May, [facility] [place] [facility] [address] [id number] [place] [address]- 1129 Apr, [facility] [place] [facility] [address] [id number] [place] [address]- 9174 Apr, [facility] [place] [facility] [address] [id number] [place] [address]- 0215 Apr, [facility] [place] [facility] [address] [id number] [place] [address]- 9090 Apr, [facility] [place] [facility] [address] [id number] [place] [address]- 7302 Apr, [facility] [place] [facility] [address] [id number] [place] [address]- 3821 Apr, [facility] [place] [facility] [address] [id number] [place] [address]- 4443 Apr, [facility] [place] [facility] [address] [id number] [place] [address]- 9280 Apr, [facility] [place] [facility] [address] [id number] [place] [address]- 8704 Apr, [facility] [place] [facility] [address] [id number] [place] [address]- 4208 Apr, [facility] [place] [facility] [address] [id number] [place] [address]- 7936 Apr, [facility] [place] [facility] [address] [id number] [place] [address]- 5267 Apr, [facility] [place] [facility] [address] [id number] [place] [address]- 5433 Apr, [facility] [place] [facility] [address] [id number] [place] [address]- 8846 Apr, [facility] [place] [facility] [address] [id number] [place] [address]- 9445 Apr, [facility] [place] [facility] [address] [id number] [place] [address]- 9680 Mar, [facility] [place] [facility] [address] [id number] [place] [address]- 4152 Mar, [facility] [place] [facility] [address] [id number] [place] [address]- 2802 Mar, [facility] [place] [facility] [address] [id number] [place] [address]- 2527 Mar, [facility] [place] [facility] [address] [id number] [place] [address]- 2011 Mar, [facility] [place] [facility] [address] [id number] [place] [address]- 7910 Mar, [facility] [place] [facility] [address] [id number] [place] [address]- 9871 15 Mar, 2014 [facility] [place] [facility] [address] [id number] [place] [address]- 2367 15 Mar, 2014 [facility] [place] [facility] [address] [id number], [place] [address]- 4167 15 Mar, 2014 [facility] [place] [facility] [address] [id number] [place] [address]- 9276 15 Mar, 2014 [facility] [place] [facility] [address] [id number] [place] [address]- 6955 15 Mar, 2014 [facility] [place] [facility] [address] [id number] [place] [address]- 8984 15 Mar, 2014 [facility] [place] [facility] [address] [id number] [place] [address]- 8083 Mar, [facility] [place] [facility] [address] [id number] [place] [address]- 9439 Mar, [facility] [place] [facility] [address] [id number] [place] [address]- 9152 Mar, [facility] [place] [facility] [address] [id number] [place] [address]- 4713 Mar, [facility] [place] [facility] [address] [id number] [place] [address]- 9325 Mar, [facility] [place] [facility] [address] [id number] [place] [address]- 9033 Mar, [facility] [place] [facility] [address] [id number] [place] [address]- 9956 Feb, [facility] [place] [facility] [address] [id number] [place] [address]- 7913 Feb, [facility] [place] [facility] [address] [id number] [place] [address]- 1739 Feb, [facility] [place] [facility] [address] [id number] [place] [address]- 5565 Feb, [facility] [place] [facility] [address] [facility] [id number] [place] [address]- 6581 Feb, [facility] [place] [facility] [address] [id number] [place] [address]- 2295 Feb, [facility] [place] [facility] [address] [id number] [place] [address]- 1531 Feb, [facility] [place] [facility] [address] [id number] [place] 8990 Feb, [facility] [place] [facility] [address] [id number] [place] [address]- 9415 Jan, [facility] [place] [facility] [address] [id number] [place] [address]- 0331 Jan, [facility] [place] [facility] [address] [id number] [place] [address]- 1337 Jan, [facility] [place] [facility] [address] [id number] [place] [address]- 5520 Jan, [facility] [place] [facility] [address] [id number] [place] [address]- 8344 Jan, [facility] [place] [facility] [address] [id number] [place] [address]- 7432 Jan, [facility] [place] [facility] [address] [id number] [place] [address] Jan, [facility] [place] [facility] [address] [id number] [place] [address] Jan, [facility] [place] [facility] [address] [id number] [place] [address] Jan, [facility] [place] [facility] [address] [id number] [place] [address] Jan, [facility] [place] [facility] [address] [id number] [place] [address] Jan, [facility] [place] [facility] [address] [id number] [place] [address] Jan, [facility] [place] [facility] [address] [id number] [place] [address] Jan, [facility] [place] [facility] [address] [id number], [place] [address] Jan, [facility] [place] [facility] [address] [id number] [place] [address] Jan, [facility] [place] [facility] [address] [id number] [place] [address] 16 Jan, 2014 [facility] [place] [facility] [address] [id number], [place] [address] Jan, [facility] [place] [facility] [address] [id number], [place] [address] 13 Jan, 2014 [facility] [place] [facility] [address] [id number] [place] [address]46 29 Sep, 2013 [facility] [place] [facility] [address] [id number] [place] [address] 2546 29 Dec, 2013 [facility] [place] [facility] [address] [id number] [place] [address] 2546 26 Dec, 2013 [facility] [place] [facility] [address] [id number] [place] [address] 2546 26 Dec, 2013 [facility] [place] [facility] [address] [id number] [place] [address] 2542 26 Dec, 2013 [facility] [place] [facility] [address] [id number] [place] [address] 26 Dec, 2013 [facility] [place] [facility] [address] [id number] [place] [address] 23 Dec, 2013 [facility] [place] [facility] [address] [id number] [place] [address] 23 Dec, 2013 [facility] [place] [facility] [address] [id number] [place] [address] 2548 22 Dec, 2013 [facility] [place] [facility] [address] [id number] [place] [address] 2543 22 Dec, 2013 [facility] [place] [facility] [address] [id number], [place] [address] 16 Dec, 2013 [facility] [place] [facility] [address] [id number], [place] [address]- [address] 16 Dec, 2013 [facility] [place] [facility] [address] [id number], [place] [address] 15 Dec, 2013 [facility] [place] [facility] [address] [id number] [place] [address] 2546 15 Dec, 2013 [facility] [place] [facility] [address] [id number] [place] [address] 09 Dec, 2013 [facility] [place] [facility] [address] [id number] [place] [address] Dec, [facility] [place] [facility] [address] [id number] [place] [address] Dec, [facility] [place] [facility] [address] [id number] [place] [address] Nov, [facility] [place] [facility] [address] [id number] [place] [address]68 Nov, [facility] [place] [facility] [address] [id number] [place] [address] Nov, [facility] [place] [facility] [address] [id number] [place] [address]- [address] Nov, [facility] [place] [facility] [address] [id number] [place] [address] Nov, [facility] [place] [facility] [address] [id number] [place] [address] Nov, [facility] [place] [facility] [address] [id number] [place] [address] Nov, [facility] [place] [facility] [address] [id number] [place] [address] Nov, [facility] [place] [facility] [address] [id number] [place] [address] Nov, [facility] [place] [facility] [address] [id number] [place] [address] Nov, [facility] [place] [facility] [address] [id number] [place] [address] Nov, [facility] [place] [facility] [address] [id number] [place] [address] Nov, [facility] [place] [facility] [address] [id number] [place] [address]- [address] Nov, [facility] [place] [facility] [address] [id number] [place] [address] Nov, [facility] [place] [facility] [address] [id number] [place] [address]- [address] Nov, [facility] [place] [facility] [address] [id number] [place] [address]- [address] Nov, [facility] [place] [facility] [address] [id number] [place] [address]- [address] Nov, [facility] [place] [facility] [address] [id number] [place] [address]- 285[address] Nov, [facility] [place] [facility] [address] [id number] [place] [address] Nov, [facility] [place] [facility] [address] [id number] [place] [address]- [address] Nov, [facility] [place] [facility] [address] [id number] [place] [address]- [address] Nov, [facility] [place] [facility] [address] [id number] [place] [address]- [address] Oct, [facility] [place] [facility] [address] [id number] [place] [address]- [address] Oct, [facility] [place] [facility] [address] [id number] [place] [address]- 69[address] Oct, [facility] [place] [facility] [address] [id number] [place] [address]- 44[address] Oct, [facility] [place] [facility] [address] [id number] [place] [address]- 244[address] Oct, [facility] [place] [facility] [address] [id number] [place] [address]- [address] Oct, [facility] [place] [facility] [address] [id number] [place] [address]- 46[address] Oct, [facility] [place] [facility] [address] [id number] [place] [address]- 70[address] Oct, [facility] [place] [facility] [address] [id number] [place] [address] 15 Oct, 2013 [facility] [place] [facility] [address] [id number] [place] [address]- [address] 14 Oct, 2013 [facility] [place] [facility] [address] [id number] [place] [address]- [address] Oct, [facility] [place] [facility] [address] [id number] [place] [address] Oct, [facility] [place] [facility] [address] [id number] [place] [address]64 Oct, [facility] [place] [facility] [address] [id number] [place] [address] 4698 Oct, [facility] [place] [facility] [address] [id number] [place] [address] 1704 Oct, [facility] [place] [facility] [address] [id number] [place] [address] 1877 Sep, [facility] [place] [facility] [address] [id number] [place] [address] 6794 Sep, [facility] [place] [facility] [address] [id number] [place] [address] 2380 Sep, [facility] [place] [facility] [address] [id number] [place] [address] 8439 Sep, [facility] [place] [facility] [address] [id number] [place] [address]- 5974 Sep, [facility] [place] [facility] [address] [id number] [place] [address] 8113 Sep, [facility] [place] [facility] [address] [id number] [place] [address]- 5875 Sep, [facility] [place] [facility] [address] [id number] [place] [address]- 3962 Sep, [facility] [place] [facility] [address] [id number] [place] [address]- [address] 17 Sep, 2013 [facility] [place] [facility] [address] [id number] [place] [address]- 9057 Sep, [facility] [place] [facility] [address] [id number] [place] [address]- 9261 Sep, [facility] [place] [facility] [address] [id number] [place] [address]- 9172 Sep, [facility] [place] [facility] [address] [id number] [place] [address]- 9661 Sep, [facility] [place] [facility] [address] [id number] [place] [address]- 3502 Sep, [facility] [place] [facility] [address] [id number] [place] [address]- 9065 Sep, [facility] [place] [facility] [address] [id number] [place] [address]- 3480 Sep, [facility] [place] [facility] [address] [id number] [place] [address]- 72[address] Sep, [facility] [place] [facility] [address] [id number] [place] [address]- 8735 Sep, [facility] [place] [facility] [address] [id number] [place] [address]- 1789 Sep, [facility] [place] [facility] [address] [id number] [place] [address]- 6182 Sep, [facility] [place] [facility] [address] [id number] [place] [address]- 2720 Sep, [facility] [place] [facility] [address] [id number] [place] [address]- 7937 Sep, [facility] [place] [facility] [address] [id number] [place] [address]- 8818 August, [facility] [place] [facility] [address] [id number] [place] [address]- 7338 August, [facility] [place] [facility] [address] [id number] [place] [address]- 7055 August, [facility] [address] [id number] [place] [address]- 8718 August, [facility] [place] [facility] [address] [id number] [place] [address]- 3082 August, [facility] [place] [facility] [address] [id number] [place] [address]- 6975 August, [facility] [place] [facility] [address] [id number] [place] [address]- 2144 August, [facility] [place] [facility] [address] [id number] [place] [address]- 4828 August, [facility] [place] [facility] [address] [id number] [place] [address]- 4930 August, [facility] [place] [facility] [address] [id number] [place] [address]- 2632 August, [facility] [place] [facility] [address] [id number] [place] [address]- 3578 August, [facility] [place] [facility] [address] [id number] [place] [address]- 3054 August, [facility] [place] [facility] [address] [id number] [place] [address]- 5853 August, [facility] [place] [facility] [address] [id number] [place] [address]- 6343 August, [facility] [place] [facility] [address] [id number] [place] [address]- 1623 August, [facility] [place] [facility] [address] [id number] [place] [address]- 8560 August, [facility] [place] [facility] [address] [id number] [place] [address]- 3224 August, [facility] [place] [facility] [address] [id number] [place] [address]- 7927 August, [facility] [place] [facility] [address] [id number] [place] [address]- 9811 Jul, [facility] [place] [facility] [address] [id number] [place] [address]- 9217 Jul, [facility] [place] [facility] [address] [id number] [place] [address]- 0278 Jul, [facility] [place] [facility] [address] [id number] [place] [address]- 2462 Jul, [facility] [place] [facility] [address] [id number] [place] [address]- 5400 Jul, [facility] [place] [facility] [address] [id number] [place] [address]- 6490 Jul, [facility] [place] [facility] [address] [id number] [place] [address]- 9949 Jul, [facility] [place] [facility] [address] [id number] [place] [address]- 7565 Jul, [facility] [place] [facility] [address] [id number] [place] [address]- 5538 Jul, [facility] [place] [facility] [address] [id number] [place] [address]- 3209 Jul, [facility] [place] [facility] [address] [id number] [place] [address]- 9491 Jul, [facility] [place] [facility] [address] [id number] [place] [address]- 5036 Jul, [facility] [place] [facility] [address] [id number] [place] [address]- 1411 Jul, [facility] [place] [facility] [address] [id number] [place] [address]- 7993 Jul, [facility] [place] [facility] [address] [id number] [place] [address]- 5588 Jul, [facility] [place] [facility] [address] [id number] [place] [address]- 9814 Jul, [facility] [place] [facility] [address] [id number] [place] [address]- 9920 17 Jul, 2013 [facility] [place] [facility] [address] [id number] [place] [address]- 0816 16 Jul, 2013 [facility] [place] [facility] [address] [id number] [place] [address]- 6425 16 Jul, 2013 [facility] [place] [facility] [address] [id number] [place] [address]- 8415 15 Jul, 2013 [facility] [place] [facility] [address] [id number] [place] [address]- 0099 15 Jul, 2013 [facility] [place] [facility] [address] [id number] [place] [address]- 4575 14 Jul, 2013 [facility] [place] [facility] [address] [id number] [place] [address]- 5499 Jul, [facility] [place] [facility] [address] [id number] [place] [address]- 1165 Jul, [facility] [place] [facility] [address] [id number] [place] [address]- 1779 Jul, [facility] [place] [facility] [address] [id number] [place] [address]- 7151 Jul, [facility] [place] [facility] [address] [id number] [place] [address]- 3930 Jul, [facility] [place] [facility] [address] [id number] [place] [address]- 1241 Jul, [facility] [place] [facility] [address] [id number] [place] [address]- 5569 Jul, [facility] [place] [facility] [address] [id number] [place] [address]- 8845 Jun, [facility] [place] [facility] [address] [id number] [place] [address]- 5412 Jun, [facility] [place] [facility] [address] [id number] [place] [address]- 2097 17 Jun, 2013 [facility] [place] [facility] [address] [id number] [place] [address]- 6195 17 Jun, 2013 [facility] [place] [facility] [address] [id number] [place] [address]- 6024 Jun, [facility] [place] [facility] [address] [id number] [place] [address]- 2137 Jun, [facility] [place] [facility] [address] [id number] [place] [address]- 7343 Jun, [facility] [place] [facility] [address] [id number] [place] [address]- 0925 Jun, [facility] [place] [facility] [address] [id number] [place] [address]- 2578 Jun, [facility] [place] [facility] [address] [id number] [place] [address]- 3788 Jun, [facility] [place] [facility] [address] [id number] [place] [address]- 6757 Jun, [facility] [place] [facility] [address] [id number] [place] [address]- 1225 Jun, [facility] [place] [facility] [address] [id number] [place] [address]- 8823 May, [facility] [place] [facility] [address] [id number] [place] [address]- 0866 May, [facility] [place] [facility] [address] [id number] [place] [address]- 6557 May, [facility] [place] [facility] [address] [id number] [place] [address]- 6585 May, [facility] [place] [facility] [address] [id number] [place] [address]- 4026 May, [facility] [place] [facility] [address] [id number] [place] [address]- 2598 May, [facility] [place] [facility] [address] [id number] [place] [address]- 0052 May, [facility] [place] [facility] [address] [id number] [place] [address]- 4661 May, [facility] [place] [facility] [address] [id number] [place] [address]- 4186 May, [facility] [place] [facility] [address] [id number] [place] [address]- 9029 May, [facility] [place] [facility] [address] [id number] [place] [address]- 3321 Apr, [facility] [place] [facility] [address] [id number] [place] [address]- 0478 Apr, [facility] [place] [facility] [address] [id number] [place] [address]- 9181 Apr, [facility] [place] [facility] [address] [id number] [place] [address]- 1800 Apr, [facility] [place] [facility] [address] [id number] [place] [address]- 4373 Apr, [facility] [place] [facility] [address] [id number] [place] [address]- 5923 Apr, [facility] [place] [facility] [address] [id number] [place] [address]- 6550 Apr, [facility] [place] [facility] [address] [id number] [place] [address]- 2765 Apr, [facility] [place] [facility] [address] [id number] [place] [address]- 5298 Apr, [facility] [place] [facility] [address] [id number] [place] [address]- 9417 Apr, [facility] [place] [facility] [address] [id number] [place] [address]- 4099 Mar, [facility] [place] [facility] [address] [id number], [place] [address]- 4784 Mar, [facility] [place] [facility] [address] [id number] [place] [address]- 0077 Mar, [facility] [place] [facility] [address] [id number] [place] [address]- 9262 Mar, [facility] [place] [facility] [address] [id number] [place] [address]- 3296 Mar, [facility] [place] [facility] [address] [id number] [place] [address]- 4090 Mar, [facility] [place] [facility] [address] [id number] [place] [address]- 7312 Feb, [facility] [place] [facility] [address] [id number] [place] [address]- 1680 Feb, [facility] [place] [facility] [address] [id number] [place] [address]- 0233 Feb, [facility] [place] [facility] [address] [id number] [place] [address]- 6867 Jan, [facility] [place] [facility] [address] [id number] [place] [address]- 3647 30 Jan, 2013 [facility] [place] [facility] [address] [id number] [place] [address]- 9797 Jan, [facility] [place] [facility] [address] [id number], [place] [address]- 9405 28 Jan, 2013 [facility] [place] [facility] [address] [id number], [place] [address]- 8177 15 Jan, 2013 [facility] [place] [facility] [address] [id number] [place] [address]- 8420 15 Jan, 2013 [facility] [place] [facility] [address] [id number], [place] [address]- 2753 Jan, [facility] [place] [facility] [address] [id number], [place] [address]- 2933 11 Jan, 2013 [facility] [place] [facility] [address] [id number] [place] [address]- 2441 Jan, [facility] [place] [facility] [address] [id number] [place] [address]- 4834 Jan, [facility] [place] [facility] [address] [id number] [place] [address]- 8936 30 Dec, 2012 [facility] [place] [facility] [address] [id number] [place] [address]- 5086 25 Dec, 2012 [facility] [place] [facility] [address] [id number] [place] [address]- 6582 11 Dec, 2012 [facility] [place] [facility] [address] [id number] [place] [address]- 6575 Dec, 2012 [facility] [place] [facility] [address] [id number] [place] [address]- 6178 05 Dec, 2012 [facility] [place] [facility] [address] [id number] [place] [address]- 1206 Dec, 2012 [facility] [place] [facility] [address] [id number] [place] [address]- 0584 Nov, [facility] [place] [facility] [address] [id number] [place] [address]- 0633 Nov, [facility] [place] [facility] [address] [id number] [place] [address]- 4153 Nov, [facility] [place] [facility] [address] [id number] [place] [address]- 9604 Nov, [facility] [place] [facility] [address] [id number] [place] [address] 2543 Nov, [facility] [place] [facility] [address] [id number] [place] [address]- 0076 Nov, [facility] [place] [facility] [address] [id number] [place] [address]- 2543 Nov, [facility] [place] [facility] [address] [id number] [place] [address]- 0552 Nov, [facility] [address] [id number] [place] [address]- 3220 Nov, [facility] [place] [facility] [address] [id number] [place] [address]- 7336 Nov, [facility] [place] [facility] [address] [id number] [place] [address]- 6484 Nov, [facility] [place] [facility] [address] [id number] [place] [address]- 3900 Nov, [facility] [place] [facility] [address] [id number] [place] [address]- 3378 Oct, [facility] [place] [facility] [address] [id number] [place] [address]- 5935 Oct, [facility] [place] [facility] [address] [id number] [place] [address]- 8838 Oct, [facility] [place] [facility] [address] [id number] [place] [address]- 3527 Sep, [facility] [place] [facility] [address] [id number] [place] [address]- 5480 Sep, [facility] [place] [facility] [address] [id number] [place] [address]- 7929 Sep, [facility] [place] [facility] [address] [id number] [place] [address]- 0151 August, [facility] [place] [facility] [address] [id number] [place] [address]- 8815 August, [facility] [place] [facility] [address] [id number] [place] [address]- 2836 August, [facility] [place] [facility] [address] [id number] [place] [address]- 5611 August, [facility] [place] [facility] [address] [id number] [place] [address]- 1478 August, [facility] [place] [facility] [address] [id number] [place] [address]- 3725 August, [facility] [address] [id number] [place] [address]- 6250 30 Jul, 2012 [facility] [place] [facility] [address] [id number] [place] [address]- 8489 15 Jul, 2012 [facility] [address] [id number] [place] [address]- 5222 Jul, [facility] [place] [facility] [address] [id number] [place] [address]- 2311 Jul, [facility] [address] [id number] [place] [address]- 5072 Jul, [facility] [place] [facility] [address] [id number] [place] [address]- 8376 Jul, [facility] [address] [id number] [place] [address]- 5507 2012 [facility] [address] [id number] [place] [address]- 4957 20 Jun, 2012 [facility] [address] [id number] [place] [address]- 6991 18 Jun, 2012 [facility] [address] [id number] [place] [address]- 0344 14 Jun, 2012 [facility] [place] [facility] [address] [id number] [place] [address]- 2741 04 Jun, 2012 [facility] [place] [facility] [address] [id number] [place] [address]- 1885 May, [facility] [place] [facility] [address] [id number] [place] [address]- 4015 12 May, 2012 [facility] [place] [facility] [address] [id number] [place] [address]- 7375 May, [facility] [place] [facility] [address] [id number] [place] [address]- 5242 08 May, 2012 [facility] [address] [id number] [place] [address]- 7699 Apr, [facility] [place] [facility] [address] [id number] [place] [address]- 8961 Apr, [facility] [place] [facility] [address] [id number] [place] [address]- 6338 Apr, [facility] [place] [facility] [address] [id number] [place] [address]- 2296 Mar, [facility] [place] [facility] [address] [id number] [place] [address]- 0504 Mar, [facility] [place] [facility] [address] [id number] [place] [address]- 9049 Mar, [facility] [place] [facility] [address] [id number] [place] [address]- 4557 Mar, [facility] [place] [facility] [address] [id number] [place] [address]- 6915 Mar, [facility] [place] [facility] [address] [id number] [place] [address]- 2241 Mar, [facility] [place] [facility] [address] [id number] [place] [address]- 1730 Mar, [facility] [place] [facility] [address] [id number] [place] [address]- 1656 Mar, [facility] [place] [facility] [address] [id number], [place] [address]- 5788 Feb, [facility] [place] [facility] [address] [id number] [place] [address]- 6683 Feb, [facility] [place] [facility] [address] [id number] [place] [address]- 7586 Feb, [facility] [place] [facility] [address] [id number] [place] [address]- 6457 Feb, [facility] [place] [facility] [address] [id number], [place] [address]- 5750 Feb, [facility] [place] [facility] [address] [id number] [place] [address]- 5889 Feb, [facility] [place] [facility] [address] [id number] [place] [address]- 2948 Feb, [facility] [place] [facility] [address] [facility] [id number] [place] [address]- 3108 Feb, [facility] [place] [facility] [address] [id number] [place] [address]- 3851 Feb, [facility] [place] [facility] [address] [id number] [place] [address]- 2658 Feb, [facility] [place] [facility] [address] [id number] [place] [address]- 4708 Feb, [facility] [place] [facility] [address] [id number] [place] [address]- 9512 Feb, [facility] [place] [facility] [address] [id number] [place] [address]- 1190 Feb, [facility] [place] [facility] [address] [id number] [place] [address]- 5413 Feb, [facility] [place] [facility] [address] [id number] [place] [address]- 2200 Feb, [facility] [place] [facility] [address] [id number], [place] [address] Feb, [facility] [place] [facility] [address] [id number], [place] [address] Feb, [facility] [place] [facility] [address] [id number], [place] [address] Feb, [facility] [place] [facility] [address] [id number] [place] [address] Jan, [facility] [place] [facility] [address] [id number], [place] [address] Jan, [facility] [place] [facility] [address] [id number] [place] [address] 22 Jan, 2011 [facility] [place] [facility] [address] [id number] [place] [address] 2675 20 Jan, 2012 [facility] [place] [facility] [address] [id number] [place] [address] 20 Jan, 2012 [facility] [place] [facility] [address] [id number] [place] [address] 19 Jan, 2012 [facility] [place] [facility] [address] [id number] [place] [address] 8668 18 Jan, 2012 [facility] [place] [facility] [address] [id number] [place] [address] 1369 18 Jan, 2012 [facility] [place] [facility] [address] [id number] [place] [address] 9428 15 Jan, 2012 [facility] [place] [facility] [address] [id number] [place] [address] 239[address] 15 Jan, 2012 [facility] [place] [facility] [address] [id number] [place] [address] 73[address] 11 Jan, 2012 [facility] [place] [facility] [address] [id number] [place] [address]- 7502 11 Jan, 2012 [facility] [place] [facility] [address] [id number] [place] [address]- 2029 10 Jan, 2012 [facility] [place] [facility] [address] [id number] [place] [address] 4414 09 Jan, 2012 [facility] [place] [facility] [address] [id number] [place] [address]- 1828 02 Jan, 2012 [facility] [place] [facility] [address] [id number] [place] [address] 8176 29 Dec, 2011 [facility] [place] [facility] [address] [id number] [place] [address]366 28 Dec, 2011 [facility] [place] [facility] [address] [id number] [place] [address] 4106 Dec, [facility] [place] [facility] [address] [id number] [place] [address]- 3583 Dec, [facility] [place] [facility] [address] [id number] [place] [address] 5[address] Nov, [facility] [place] [facility] [address] [id number] [place] [address]159 Nov, [facility] [place] [facility] [address] [id number] [place] [address] Nov, [facility] [place] [facility] [address] [id number] [place] [address] 9055 Nov, [facility] [place] [facility] [address] [id number] [place] [address] 4091 Nov, [facility] [place] [facility] [address] [id number] [place] [address] 4[address] Nov, [facility] [place] [facility] [address] [id number] [place] [address] 1624 Nov, [facility] [place] [facility] [address] [id number] [place] [address] 3817 Nov, [facility] [place] [facility] [address] [id number] [place] [address]- 5667 Nov, [facility] [place] [facility] [address] [id number] [place] [address] 6604 Nov, [facility] [place] [facility] [address] [id number] [place] [address] 8674 Nov, [facility] [place] [facility] [address] [id number] [place] [address] 9424 Oct, [facility] [place] [facility] [address] [id number] [place] [address]- 0969 Oct, [facility] [place] [facility] [address] [id number] [place] [address]- 6967 Oct, [facility] [place] [facility] [address] [id number] [place] [address] 3181 Oct, [facility] [place] [facility] [address] [id number] [place] [address] 4972 Oct, [facility] [place] [facility] [address] [id number] [place] [address] 2846 Oct, [facility] [place] [facility] [address] [id number] [place] [address] 8266 Oct, [facility] [place] [facility] [address] [id number] [place] [address]- 4652 Oct, [facility] [place] [facility] [address] [id number] [place] [address] 4643 Sep, [facility] [place] [facility] [address] [id number] [place] [address] 1809 Sep, [facility] [place] [facility] [address] [id number] [place] [address] 0[address] Sep, [facility] [place] [facility] [address] [id number] [place] [address] 0914 Sep, [facility] [place] [facility] [address] [id number] [place] [address]- 8163 Sep, [facility] [place] [facility] [address] [id number] [place] [address] 3529 Sep, [facility] [place] [facility] [address] [id number] [place] [address]- 4768 Sep, [facility] [place] [facility] [address] [id number] [place] [address]- 9491 August, [facility] [place] [facility] [address] [id number] [place] [address]- 0862 August, [facility] [place] [facility] [address] [id number] [place] [address]- 7195 August, [facility] [place] [facility] [address] [id number] [place] [address] 7440 August, [facility] [place] [facility] [address] [id number] [place] [address]- 8635 August, [facility] [address] [id number] [place] [address] 8762 August, [facility] [place] [facility] [address] [id number] [place] [address]- 0746 August, [facility] [address] [id number] [place] [address] 7929 August, [facility] [address] [id number] [place] [address]- 1331 Jul, [facility] [place] [facility] [address] [id number] [place] [address]- 4969 17 Jul, 2011 [facility] [address] [id number] [place] [address] 9[address] Jul, [facility] [address] [id number] [place] [address] 4[address] Jul, [facility] [address] [id number] [place] [address]- 1506 Jul, [facility] [address] [id number] [place] [address]- 4555 28 Jun, 2011 [facility] [place] [facility] [address] [id number] [place] [address] 2011 [facility] [place] [facility] [address] [id number] [place] [address]- 4119 20 Jun, 2011 [facility] [place] [facility] [address] [id number] [place] [address]- 7669 19 Jun, 2011 [facility] [place] [facility] [address] [id number] [place] [address]- 8707 12 Jun, 2011 [facility] [place] [facility] [address] [id number] [place] [address]- 1727 Jun, [facility] [place] [facility] [address] [id number] [place] [address]- 5906 Jun, [facility] [address] [id number] [place] [address]- 8760 Jun, [facility] [address] [id number] [place] [address]- 4036 Jun, [facility] [address] [id number] [place], [place] [id number] May, [facility] [address] [id number] [place] [address]- 2025 May, [facility] [address] [id number] [place] [address]- [address]646 May, [facility] [facility] [address] [id number] [place] [address] May, [facility] [address] [id number] [place] [address] May, [facility] [address] [id number] [place] [address] May, [facility] [address] [id number] [place] [address] May, [facility] [address] [id number] [place] [address] May, [facility] [address] [id number] [place] [address] Apr, [facility] [place] [facility] [address] [id number] [place] [address] Apr, [facility] [place] [facility] [address] [id number] [place] [address] Apr, [facility] [place] [facility] [address] [id number] [place] [address] Apr, [facility] [address] [id number], [place] [address] Apr, [facility] [address] [id number] [place] [address] 05 Apr, 2011 [facility] [address] [id number] [place] [address] Mar, [facility] [place] [facility] [address] [id number] [place] [address] Mar, [facility] [place] [facility] [address] [id number] [place] [address] Mar, [facility] [address] [id number] [place] [address] Mar, [facility] [place] [facility] [address] [id number] [place] [address] 15 Mar, 2011 [facility] [address] [id number] [place] [address] Mar, [facility] [place] [facility] [address] [id number] [place] [address] Mar, [facility] [place] [facility] [address] [id number] [place] [address] Mar, [facility] [place] [facility] [address] [id number] [place] [address] Mar, [facility] [place] [facility] [address] [id number] [place] [address] Mar, [facility] [place] [facility] [address] [id number] [place] [address] Mar, [facility] [place] [facility] [address] [id number] [place] [address] Mar, [facility] [place] [facility] [address] [id number] [place] [address] Mar, [facility] [place] [facility] [address] [id number] [place] [address] Feb, [facility] [place] [facility] [address] [id number] [place] [address] Feb, [facility] [place] [facility] [address] [id number] [id number] [address] 17 Feb, 2011 [facility] [place] [facility] [address] [id number] [place] [address] Feb, [facility] [place] [facility] [address] [id number] [place] [address] Feb, [facility] [place] [facility] [address] [id number] [place] [address] Feb, [facility] [place] [facility] [address] [id number] [place] [address] Feb, [facility] [place] [facility] [address] [id number] [place] [address] Jan, [facility] [place] [facility] [address] [id number] [place] [address] Jan, [facility] [place] [facility] [address] [id number] [place] [address] Jan, [facility] [place] [facility] [address] [id number] [place] [address] Nov, [facility] [place] [facility] [address] [id number] [place] [address] Mar, [facility] [place] [facility] [address] [id number], [place] [address] Mar, [facility] [place] [facility] [address] [id number], [place] [address] 20 Mar, 2010 [facility] [place] [facility] [address] [id number] [place] [address] 13 Mar, 2010 [facility] [place] [facility] [address] [id number] [place] [address] 07 Mar, 2010 [facility] [place] [facility] [address] [id number] [place] [address] 30 Feb, 2010 [facility] [place] [facility] [address] [id number] [place] [address] 30 Feb, 2010 [facility] [address] [id number] [place] [address] 24 Feb, 2010 [facility] [address] [id number] [place] [address] 19 Feb, 2010 [facility] [address] [id number], [place] [address] 19 Feb, 2010 [facility] [address] [id number] [place] [address] 15 Feb, 2010 IMMUNIZATIONS No Known Immunizations [...] Mastectomy 02/01/2017 Hospitalization History surgeries Hospitalization History [facility] ED 10/06/2017
--- OUTSIDE RECORDS SUMMARY | 2017-12-22 03:49 | XMS REPORT ---
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 Jun, [facility] [place] [facility] [address] [id number], [place] [address]- 9745 Jun, [facility] [place] [facility] [address] [id number], [place] [address]- 8442 19 Jun, 2014 [facility] [place] [facility] [address] [id number] [place] [address]- 1548 18 Jun, 2014 [facility] [place] [facility] [address] [id number] [place] [address]- 9322 18 Jun, 2014 [facility] [place] [facility] [address] [id number] [place] [address]- 9342 18 Jun, 2014 [facility] [place] [facility] [address] [id number] [place] [address]- 9333 18 Jun, 2014 [facility] [place] [facility] [address] [id number] [place] [address]- 4611 17 Jun, 2014 [facility] [place] [facility] [address] [id number] [place] [address]- 7246 17 Jun, 2014 [facility] [place] [facility] [address] [id number] [place] [address]- 3926 17 Jun, 2014 [facility] [place] [facility] [address] [id number] [place] [address]- 1701 17 Jun, 2014 [facility] [place] [facility] [address] [id number] [place] [address]- 2984 13 Jun, 2014 [facility] [place] [facility] [address] [id number] [place] [address]- 7681 13 Jun, 2014 [facility] [place] [facility] [address] [id number] [place] [address]- 7365 12 Jun, 2014 [facility] [place] [facility] [address] [id number] [place] [address]- 0201 12 Jun, 2014 [facility] [place] [facility] [address] [id number] [place] [address]- 8287 10 Jun, 2014 [facility] [place] [facility] [address] [id number] [place] [address]- 0862 10 Jun, 2014 [facility] [place] [facility] [address] [id number] [place] [address]- 6766 10 Jun, 2014 [facility] [place] [facility] [address] [id number] [place] [address]- 5950 10 Jun, 2014 [facility] [place] [facility] [address] [id number] [place] [address]- 8534 06 Jun, 2014 [facility] [place] [facility] [address] [id number] [place] [address]- 1596 06 Jun, 2014 [facility] [place] [facility] [address] [id number] [place] [address]- 9411 Jun, 2014 [facility] [place] [facility] [address] [id number] [place] [address]- 3952 Jun, [facility] [place] [facility] [address] [id number] [place] [address]- 2120 Jun, [facility] [place] [facility] [address] [id number] [place] [address]- 6277 Jun, [facility] [place] [facility] [address] [id number] [place] [address]- 1937 May, 2014 [facility] [place] [facility] [address] [id number] [place] [address]- 2220 May, 2014 [facility] [place] [facility] [address] [id number] [place] [address]- 4903 May, 2014 [facility] [place] [facility] [address] [id number] [place] [address]- 4913 May, 2014 [facility] [place] [facility] [address] [id number] [place] [address]- 9396 May, 2014 [facility] [place] [facility] [address] [id number] [place] [address]- 8730 May, 2014 [facility] [place] [facility] [address] [id number] [place] [address]- 0872 May, 2014 [facility] [place] [facility] [address] [id number] [place] [address]- 9989 May, 2014 [facility] [place] [facility] [address] [id number] [place] [address]- 8370 May, 2014 [facility] [place] [facility] [address] [id number] [place] [address]- 7453 May, 2014 [facility] [place] [facility] [address] [id number] [place] [address]- 8926 May, 2014 [facility] [place] [facility] [address] [facility] [id number] [place] [address]- 5966 May, 2014 [facility] [place] [facility] [address] [id number] [place] [address]- 7461 05 May, 2014 [facility] [place] [facility] [address] [id number] [place] [address]- 0117 May, [facility] [place] [facility] [address] [id number] [place] [address]- 6276 May, [facility] [place] [facility] [address] [id number] [place] [address]- 4263 May, [facility] [place] [facility] [address] [id number] [place] [address]- 6495 Apr, [facility] [place] [facility] [address] [id number] [place] [address]- 1148 Apr, [facility] [place] [facility] [address] [id number] [place] [address]- 9962 Apr, [facility] [place] [facility] [address] [id number] [place] [address]- 6062 Apr, [facility] [place] [facility] [address] [id number] [place] [address]- 0315 Apr, [facility] [place] [facility] [address] [id number] [place] [address]- 9281 Apr, [facility] [place] [facility] [address] [id number] [place] [address]- 1146 Apr, [facility] [place] [facility] [address] [id number] [place] [address]- 8374 Apr, [facility] [place] [facility] [address] [id number] [place] [address]- 3355 Apr, [facility] [place] [facility] [address] [id number] [place] [address]- 4404 Apr, [facility] [place] [facility] [address] [id number] [place] [address]- 0306 Apr, [facility] [place] [facility] [address] [id number] [place] [address]- 7201 Apr, [facility] [place] [facility] [address] [id number] [place] [address]- 6329 Apr, [facility] [place] [facility] [address] [id number] [place] [address]- 8736 Apr, [facility] [place] [facility] [address] [id number] [place] [address]- 7273 Apr, [facility] [place] [facility] [address] [id number] [place] [address]- 9923 Mar, [facility] [place] [facility] [address] [id number] [place] [address]- 1389 Mar, [facility] [place] [facility] [address] [id number] [place] [address]- 0474 Mar, [facility] [place] [facility] [address] [id number] [place] [address]- 5115 Mar, [facility] [place] [facility] [address] [id number] [place] [address]- 5440 Mar, [facility] [place] [facility] [address] [id number] [place] [address]- 5475 Mar, [facility] [place] [facility] [address] [id number] [place] [address]- 9573 15 Mar, 2014 [facility] [place] [facility] [address] [id number] [place] [address]- 6398 15 Mar, 2014 [facility] [place] [facility] [address] [id number] [address]- 1517 15 Mar, 2014 [facility] [place] [facility] [address] [id number] [place] [address]- 1706 15 Mar, 2014 [facility] [place] [facility] [address] [id number] [place] [address]- 6240 15 Mar, 2014 [facility] [place] [facility] [address] [id number] [place] [address]- 6259 15 Mar, 2014 [facility] [place] [facility] [address] [id number] [place] [address]- 0975 Mar, [facility] [place] [facility] [address] [id number] [place] [address]- 1346 Mar, [facility] [place] [facility] [address] [id number] [place] [address]- 1779 Mar, [facility] [place] [facility] [address] [id number] [place] [address]- 1109 Mar, [facility] [place] [facility] [address] [id number] [place] [address]- 0995 Mar, [facility] [place] [facility] [address] [id number] [place] [address]- 5050 Mar, [facility] [place] [facility] [address] [id number] [place] [address]- 6206 Feb, [facility] [place] [facility] [address] [id number] [place] [address]- 8853 Feb, [facility] [place] [facility] [address] [id number] [place] [address]- 3309 Feb, [facility] [place] [facility] [address] [id number] [place] [address]- 2362 Feb, [facility] [place] [facility] [address] [facility] [id number] [place] [address]- 1749 Feb, [facility] [place] [facility] [address] [id number] [place] [address]- 8097 Feb, [facility] [place] [facility] [address] [id number] [place] [address]- 4985 Feb, [facility] [place] [facility] [address] [id number] [place] 8154 Feb, [facility] [place] [facility] [address] [id number] [place] [address]- 4707 Jan, [facility] [place] [facility] [address] [id number] [place] [address]- 3274 Jan, [facility] [place] [facility] [address] [id number] [place] [address]- 5961 Jan, [facility] [place] [facility] [address] [id number] [place] [address]- 4584 Jan, [facility] [place] [facility] [address] [id number] [place] [address]- 6966 Jan, [facility] [place] [facility] [address] [id number] [place] [address] Jan, [facility] [place] [facility] [address] [id number] [place] [address] Jan, [facility] [place] [facility] [address] [id number] [place] [address] Jan, [facility] [place] [facility] [address] [id number] [place] [address] Jan, [facility] [place] [facility] [address] [id number] [place] [address] Jan, [facility] [place] [facility] [address] [id number] [place] [address] Jan, [facility] [place] [facility] [address] [id number] [place] [address] Jan, [facility] [place] [facility] [address] [id number] [place] [address] Jan, [facility] [place] [facility] [address] [id number], [place] [address] Jan, [facility] [place] [facility] [address] [id number] [place] [address] Jan, [facility] [place] [facility] [address] [id number] [place] [address] 16 Jan, 2014 [facility] [place] [facility] [address] [id number], [place] [address] Jan, [facility] [place] [facility] [address] [id number], [place] [address] 13 Jan, 2014 [facility] [place] [facility] [address] [id number] [place] [address] 29 Sep, 2013 [facility] [place] [facility] [address] [id number] [place] [address] 2546 29 Dec, 2013 [facility] [place] [facility] [address] [id number] [place] [address]46 26 Dec, 2013 [facility] [place] [facility] [address] [id number] [place] [address] 2546 26 Dec, 2013 [facility] [place] [facility] [address] [id number] [place] [address] 25[address] 26 Dec, 2013 [facility] [place] [facility] [address] [id number] [place] [address]- [address] 26 Dec, 2013 [facility] [place] [facility] [address] [id number] [place] [address]- [address] 23 Dec, 2013 [facility] [place] [facility] [address] [id number] [place] [address]- [address] 23 Dec, 2013 [facility] [place] [facility] [address] [id number] [place] [address] 2544 22 Dec, 2013 [facility] [place] [facility] [address] [id number] [place] [address] 2545 22 Dec, 2013 [facility] [place] [facility] [address] [id number], [place] [address] 16 Dec, 2013 [facility] [place] [facility] [address] [id number], [place] [address] 16 Dec, 2013 [facility] [place] [facility] [address] [id number], [place] [address] 15 Dec, 2013 [facility] [place] [facility] [address] [id number] [place] [address] 2546 15 Dec, 2013 [facility] [place] [facility] [address] [id number] [place] [address]- [address] 09 Dec, 2013 [facility] [place] [facility] [address] [id number] [place] [address] Dec, [facility] [place] [facility] [address] [id number] [place] [address] Dec, [facility] [place] [facility] [address] [id number] [place] [address] Nov, [facility] [place] [facility] [address] [id number] [place] [address]- [address] Nov, [facility] [place] [facility] [address] [id number] [place] [address] Nov, [facility] [place] [facility] [address] [id number] [place] [address]- [address] Nov, [facility] [place] [facility] [address] [id number] [place] [address] Nov, [facility] [place] [facility] [address] [id number] [place] [address] Nov, [facility] [place] [facility] [address] [id number] [place] [address] Nov, [facility] [place] [facility] [address] [id number] [place] [address] Nov, [facility] [place] [facility] [address] [id number] [place] [address] Nov, [facility] [place] [facility] [address] [id number] [place] [address] Nov, [facility] [place] [facility] [address] [id number] [place] [address] Nov, [facility] [place] [facility] [address] [id number] [place] [address] Nov, [facility] [place] [facility] [address] [id number] [place] [address] Nov, [facility] [place] [facility] [address] [id number] [place] [address] Nov, [facility] [place] [facility] [address] [id number] [place] [address] Nov, [facility] [place] [facility] [address] [id number] [place] [address]- [address] Nov, [facility] [place] [facility] [address] [id number] [place] [address] Nov, [facility] [place] [facility] [address] [id number] [place] [address]- [address]79 Nov, [facility] [place] [facility] [address] [id number] [place] [address] Nov, [facility] [place] [facility] [address] [id number] [place] [address]- [address] Nov, [facility] [place] [facility] [address] [id number] [place] [address]- [address] Nov, [facility] [place] [facility] [address] [id number] [place] [address]- [address]398 Oct, [facility] [place] [facility] [address] [id number] [place] [address]- [address] Oct, [facility] [place] [facility] [address] [id number] [place] [address] Oct, [facility] [place] [facility] [address] [id number] [place] [address] 3880 Oct, [facility] [place] [facility] [address] [id number] [place] [address] 5667 Oct, [facility] [place] [facility] [address] [id number] [place] [address] 9564 Oct, [facility] [place] [facility] [address] [id number] [place] [address]- 5515 Oct, [facility] [place] [facility] [address] [id number] [place] [address]- 7458 Oct, [facility] [place] [facility] [address] [id number] [place] [address]- 9097 15 Oct, 2013 [facility] [place] [facility] [address] [id number] [place] [address]- 1398 14 Oct, 2013 [facility] [place] [facility] [address] [id number] [place] [address]- 7625 Oct, [facility] [place] [facility] [address] [id number] [place] [address]- 7859 Oct, [facility] [place] [facility] [address] [id number] [place] [address]- 1623 Oct, [facility] [place] [facility] [address] [id number] [place] [address]- 3811 Oct, [facility] [place] [facility] [address] [id number] [place] [address]- 8864 Oct, [facility] [place] [facility] [address] [id number] [place] [address]- 5345 Sep, [facility] [place] [facility] [address] [id number] [place] [address]- 0757 Sep, [facility] [place] [facility] [address] [id number] [place] [address]- 2530 Sep, [facility] [place] [facility] [address] [id number] [place] [address]- 5859 Sep, [facility] [place] [facility] [address] [id number] [place] [address]- 1578 Sep, [facility] [place] [facility] [address] [id number] [place] [address]- 6427 Sep, [facility] [place] [facility] [address] [id number] [place] [address]- 0585 Sep, [facility] [place] [facility] [address] [id number] [place] [address]- 3602 Sep, [facility] [place] [facility] [address] [id number] [place] [address]- 3503 17 Sep, 2013 [facility] [place] [facility] [address] [id number] [place] [address]- 4661 Sep, [facility] [place] [facility] [address] [id number] [place] [address]- 2836 Sep, [facility] [place] [facility] [address] [id number] [place] [address]- 5085 Sep, [facility] [place] [facility] [address] [id number] [place] [address]- 4068 Sep, [facility] [place] [facility] [address] [id number] [place] [address]- 6654 Sep, [facility] [place] [facility] [address] [id number] [place] [address]- 1662 Sep, [facility] [place] [facility] [address] [id number] [place] [address]- 7882 Sep, [facility] [place] [facility] [address] [id number] [place] [address]- 7428 Sep, [facility] [place] [facility] [address] [id number] [place] [address]- 8299 Sep, [facility] [place] [facility] [address] [id number] [place] [address]- 3474 Sep, [facility] [place] [facility] [address] [id number] [place] [address]- 5454 Sep, [facility] [place] [facility] [address] [id number] [place] [address]- 9389 Sep, [facility] [place] [facility] [address] [id number] [place] [address]- 3088 Sep, [facility] [place] [facility] [address] [id number] [place] [address]- 2492 August, [facility] [place] [facility] [address] [id number] [place] [address]- 2974 August, [facility] [place] [facility] [address] [id number] [place] [address]- 3127 August, [facility] [address] [id number] [place] [address]- 8659 August, [facility] [place] [facility] [address] [id number] [place] [address]- 8492 August, [facility] [place] [facility] [address] [id number] [place] [address]- 1806 August, [facility] [place] [facility] [address] [id number] [place] [address]- 8021 August, [facility] [place] [facility] [address] [id number] [place] [address]- 0984 August, [facility] [place] [facility] [address] [id number] [place] [address]- 7259 August, [facility] [place] [facility] [address] [id number] [place] [address]- 7469 August, [facility] [place] [facility] [address] [id number] [place] [address]- 8913 August, [facility] [place] [facility] [address] [id number] [place] [address]- 7804 August, [facility] [place] [facility] [address] [id number] [place] [address]- 3085 August, [facility] [place] [facility] [address] [id number] [place] [address]- 0221 August, [facility] [place] [facility] [address] [id number] [place] [address]- 2739 August, [facility] [place] [facility] [address] [id number] [place] [address]- 8273 August, [facility] [place] [facility] [address] [id number] [place] [address]- 1015 August, [facility] [place] [facility] [address] [id number] [place] [address]- 4397 August, [facility] [place] [facility] [address] [id number] [place] [address]- 4789 Jul, [facility] [place] [facility] [address] [id number] [place] [address]- 4813 Jul, [facility] [place] [facility] [address] [id number] [place] [address]- 0120 Jul, [facility] [place] [facility] [address] [id number] [place] [address]- 2963 Jul, [facility] [place] [facility] [address] [id number] [place] [address]- 5663 Jul, [facility] [place] [facility] [address] [id number] [place] [address]- 4344 Jul, [facility] [place] [facility] [address] [id number] [place] [address]- 6347 Jul, [facility] [place] [facility] [address] [id number] [place] [address]- 0410 Jul, [facility] [place] [facility] [address] [id number] [place] [address]- 5531 Jul, [facility] [place] [facility] [address] [id number] [place] [address]- 5751 Jul, [facility] [place] [facility] [address] [id number] [place] [address]- 3237 Jul, [facility] [place] [facility] [address] [id number] [place] [address]- 5243 Jul, [facility] [place] [facility] [address] [id number] [place] [address]- 5536 Jul, [facility] [place] [facility] [address] [id number] [place] [address]- 9233 Jul, [facility] [place] [facility] [address] [id number] [place] [address]- 4725 Jul, [facility] [place] [facility] [address] [id number] [place] [address]- 8759 Jul, [facility] [place] [facility] [address] [id number] [place] [address]- 9698 17 Jul, 2013 [facility] [place] [facility] [address] [id number] [place] [address]- 6183 16 Jul, 2013 [facility] [place] [facility] [address] [id number] [place] [address]- 3955 16 Jul, 2013 [facility] [place] [facility] [address] [id number] [place] [address]- 8165 15 Jul, 2013 [facility] [place] [facility] [address] [id number] [place] [address]- 1315 15 Jul, 2013 [facility] [place] [facility] [address] [id number] [place] [address]- 8412 14 Jul, 2013 [facility] [place] [facility] [address] [id number] [place] [address]- 7904 Jul, [facility] [place] [facility] [address] [id number] [place] [address]- 9464 Jul, [facility] [place] [facility] [address] [id number] [place] [address]- 3433 Jul, [facility] [place] [facility] [address] [id number] [place] [address]- 3332 Jul, [facility] [place] [facility] [address] [id number] [place] [address]- 2062 Jul, [facility] [place] [facility] [address] [id number] [place] [address]- 2051 Jul, [facility] [place] [facility] [address] [id number] [place] [address]- 5419 Jul, [facility] [place] [facility] [address] [id number] [place] [address]- 6957 Jun, [facility] [place] [facility] [address] [id number] [place] [address]- 2367 Jun, [facility] [place] [facility] [address] [id number] [place] [address]- 4731 17 Jun, 2013 [facility] [place] [facility] [address] [id number] [place] [address]- 0867 17 Jun, 2013 [facility] [place] [facility] [address] [id number] [place] [address]- 1053 Jun, [facility] [place] [facility] [address] [id number] [place] [address]- 0756 Jun, [facility] [place] [facility] [address] [id number] [place] [address]- 2644 Jun, [facility] [place] [facility] [address] [id number] [place] [address]- 1152 Jun, [facility] [place] [facility] [address] [id number] [place] [address]- 2540 Jun, [facility] [place] [facility] [address] [facility] [id number] [place] [address]- 3417 Jun, [facility] [place] [facility] [address] [id number] [place] [address]- 4048 Jun, [facility] [place] [facility] [address] [id number] [place] [address]- 1992 Jun, [facility] [place] [facility] [address] [facility] [id number] [place] [address]- 6546 May, [facility] [place] [facility] [address] [id number] [place] [address]- 9541 May, [facility] [place] [facility] [address] [id number] [place] [address]- 9096 May, [facility] [place] [facility] [address] [id number] [place] [address]- 5470 May, [facility] [place] [facility] [address] [id number] [place] [address]- 2126 May, [facility] [place] [facility] [address] [facility] [id number] [place] [address]- 6073 May, [facility] [place] [facility] [address] [id number] [place] [address]- 7603 May, [facility] [place] [facility] [address] [id number] [place] [address]- 9018 May, [facility] [place] [facility] [address] [id number] [place] [address]- 4306 May, [facility] [place] [facility] [address] [id number] [place] [address]- 3037 May, [facility] [place] [facility] [address] [id number] [place] [address]- 7950 Apr, [facility] [place] [facility] [address] [id number] [place] [address]- 8396 Apr, [facility] [place] [facility] [address] [id number] [place] [address]- 6530 Apr, [facility] [place] [facility] [address] [id number] [place] [address]- 4539 Apr, [facility] [place] [facility] [address] [id number] [place] [address]- 3937 Apr, [facility] [place] [facility] [address] [id number] [place] [address]- 0450 Apr, [facility] [place] [facility] [address] [id number] [place] [address]- 8299 Apr, [facility] [place] [facility] [address] [id number] [place] [address]- 8162 Apr, [facility] [place] [facility] [address] [id number] [place] [address]- 9179 Apr, [facility] [place] [facility] [address] [id number] [place] [address]- 6308 Apr, [facility] [place] [facility] [address] [id number] [place] [address]- 8575 Mar, [facility] [place] [facility] [address] [id number], [place] [address]- 3673 Mar, [facility] [place] [facility] [address] [id number] [place] [address]- 1742 Mar, [facility] [place] [facility] [address] [id number] [place] [address]- 4468 Mar, [facility] [place] [facility] [address] [id number] [place] [address]- 7226 Mar, [facility] [place] [facility] [address] [id number] [place] [address]- 5746 Mar, [facility] [place] [facility] [address] [id number] [place] [address]- 7251 Feb, [facility] [place] [facility] [address] [id number] [place] [address]- 1762 Feb, [facility] [place] [facility] [address] [facility] [id number] [place] [address]- 8424 Feb, [facility] [place] [facility] [address] [id number] [place] [address]- 7562 Jan, [facility] [place] [facility] [address] [facility] [id number] [place] [address]- 1674 30 Jan, 2013 [facility] [place] [facility] [address] [facility] [id number] [place] [address]- 6542 Jan, [facility] [place] [facility] [address] [id number], [place] [address]- 2385 28 Jan, 2013 [facility] [place] [facility] [address] [id number], [place] [address]- 7256 15 Jan, 2013 [facility] [place] [facility] [address] [id number] [place] [address]- 2683 15 Jan, 2013 [facility] [place] [facility] [address] [facility] [id number], [place] [address]- 7627 Jan, [facility] [place] [facility] [address] [facility] [id number], [place] [address]- 4692 11 Jan, 2013 [facility] [place] [facility] [address] [id number] [place] [address]- 8788 Jan, [facility] [place] [facility] [address] [id number] [place] [address]- 0194 Jan, [facility] [place] [facility] [address] [id number] [place] [address]- 5466 30 Dec, 2012 [facility] [place] [facility] [address] [id number] [place] [address]- 4656 25 Dec, 2012 [facility] [place] [facility] [address] [id number] [place] [address]- 6806 11 Dec, 2012 [facility] [place] [facility] [address] [id number] [place] [address]- 3083 Dec, 2012 [facility] [place] [facility] [address] [id number] [place] [address]- 0506 05 Dec, 2012 [facility] [place] [facility] [address] [id number] [place] [address]- 8405 Dec, 2012 [facility] [place] [facility] [address] [id number] [place] [address]- 6318 Nov, [facility] [place] [facility] [address] [id number] [place] [address]- 4819 Nov, [facility] [place] [facility] [address] [id number] [place] [address]- 1084 Nov, [facility] [place] [facility] [address] [id number] [place] [address]- 7657 Nov, [facility] [place] [facility] [address] [id number] [place] [address] 254 Nov, [facility] [place] [facility] [address] [id number] [place] [address]- 7296 Nov, [facility] [place] [facility] [address] [id number] [place] [address]- 2544 Nov, [facility] [place] [facility] [address] [id number] [place] [address]- 5487 Nov, [facility] [address] [id number] [place] [address]- 8811 Nov, [facility] [place] [facility] [address] [id number] [place] [address]- 7392 Nov, [facility] [place] [facility] [address] [id number] [place] [address]- 3311 Nov, [facility] [place] [facility] [address] [id number] [place] [address]- 2649 Nov, [facility] [place] [facility] [address] [id number] [place] [address]- 4753 Oct, [facility] [place] [facility] [address] [id number] [place] [address]- 9268 Oct, [facility] [place] [facility] [address] [id number] [place] [address]- 2927 Oct, [facility] [place] [facility] [address] [id number] [place] [address]- 8278 Sep, [facility] [place] [facility] [address] [id number] [place] [address]- 7838 Sep, [facility] [place] [facility] [address] [id number] [place] [address]- 7396 Sep, [facility] [place] [facility] [address] [id number] [place] [address]- 9795 August, [facility] [place] [facility] [address] [id number] [place] [address]- 4782 August, [facility] [place] [facility] [address] [id number] [place] [address]- 0097 August, [facility] [place] [facility] [address] [id number] [place] [address]- 1836 August, [facility] [place] [facility] [address] [id number] [place] [address]- 2879 August, [facility] [place] [facility] [address] [id number] [place] [address]- 1800 August, [facility] [address] [id number] [place] [address]- 4698 30 Jul, 2012 [facility] [place] [facility] [address] [id number] [place] [address]- 6257 15 Jul, 2012 [facility] [address] [id number] [place] [address]- 2241 Jul, [facility] [place] [facility] [address] [id number] [place] [address]- 3141 Jul, [facility] [address] [id number] [place] [address]- 8201 Jul, [facility] [place] [facility] [address] [id number] [place] [address]- 5298 Jul, [facility] [address] [id number] [place] [address]- 2223 2012 [facility] [address] [id number] [place] [address]- 5570 20 Jun, 2012 [facility] [address] [id number] [place] [address]- 6074 18 Jun, 2012 [facility] [address] [id number] [place] [address]- 5865 14 Jun, 2012 [facility] [place] [facility] [address] [id number] [place] [address]- 8065 04 Jun, 2012 [facility] [place] [facility] [address] [id number] [place] [address]- 9109 May, [facility] [place] [facility] [address] [id number] [place] [address]- 5574 12 May, 2012 [facility] [place] [facility] [address] [id number] [place] [address]- 9177 May, [facility] [place] [facility] [address] [id number] [place] [address]- 7613 08 May, 2012 [facility] [address] [id number] [place] [address]- 9273 Apr, [facility] [place] [facility] [address] [id number] [place] [address]- 4263 Apr, [facility] [place] [facility] [address] [id number] [place] [address]- 6020 Apr, [facility] [place] [facility] [address] [id number] [place] [address]- 1939 Mar, [facility] [place] [facility] [address] [id number] [place] [address]- 4345 Mar, [facility] [place] [facility] [address] [id number] [place] [address]- 5612 Mar, [facility] [place] [facility] [address] [id number] [place] [address]- 0847 Mar, [facility] [place] [facility] [address] [id number] [place] [address]- 0243 Mar, [facility] [place] [facility] [address] [id number] [place] [address]- 7766 Mar, [facility] [place] [facility] [address] [id number] [place] [address]- 8698 Mar, [facility] [place] [facility] [address] [id number] [place] [address]- 0276 Mar, [facility] [place] [facility] [address] [id number], [place] [address]- 2318 Feb, [facility] [place] [facility] [address] [id number] [place] [address]- 7599 Feb, [facility] [place] [facility] [address] [id number] [place] [address]- 2361 Feb, [facility] [place] [facility] [address] [id number] [place] [address]- 4617 Feb, [facility] [place] [facility] [address] [id number], [place] [address]- 6599 Feb, [facility] [place] [facility] [address] [id number] [place] [address]- 6940 Feb, [facility] [place] [facility] [address] [id number] [place] [address]- 7371 Feb, [facility] [place] [facility] [address] [facility] [id number] [place] [address]- 5126 Feb, [facility] [place] [facility] [address] [id number] [place] [address] Feb, [facility] [place] [facility] [address] [id number] [place] [address] Feb, [facility] [place] [facility] [address] [facility] [id number] [place] [address] Feb, [facility] [place] [facility] [address] [id number] [place] [address] Feb, [facility] [place] [facility] [address] [facility] [id number] [place] [address] 86[address] Feb, [facility] [place] [facility] [address] [facility] [id number] [place] [address] Feb, [facility] [place] [facility] [address] [facility] [id number] [place] [address] Feb, [facility] [place] [facility] [address] [facility] [id number], [place] [address] Feb, [facility] [place] [facility] [address] [facility] [id number], [place] [address] Feb, [facility] [place] [facility] [address] [facility] [id number], [place] [address] Feb, [facility] [place] [facility] [address] [facility] [id number] [place] [address] Jan, [facility] [place] [facility] [address] [facility] [id number], [place] [address] Jan, [facility] [place] [facility] [address] [id number] [place] [address] 22 Jan, 2011 [facility] [place] [facility] [address] [id number] [place] [address] 9515 20 Jan, 2012 [facility] [place] [facility] [address] [id number] [place] [address] 8965 20 Jan, 2012 [facility] [place] [facility] [address] [id number] [place] [address] 3836 19 Jan, 2012 [facility] [place] [facility] [address] [id number] [place] [address] 7382 18 Jan, 2012 [facility] [place] [facility] [address] [id number] [place] [address] 2715 18 Jan, 2012 [facility] [place] [facility] [address] [id number] [place] [address]- 7369 15 Jan, 2012 [facility] [place] [facility] [address] [id number] [place] [address]107 15 Jan, 2012 [facility] [place] [facility] [address] [id number] [place] [address] 0914 11 Jan, 2012 [facility] [place] [facility] [address] [id number] [place] [address]- [address]386 11 Jan, 2012 [facility] [place] [facility] [address] [facility] [id number] [place] [address]50 10 Jan, 2012 [facility] [place] [facility] [address] [id number] [place] [address] 5257 09 Jan, 2012 [facility] [place] [facility] [address] [id number] [place] [address]76 02 Jan, 2012 [facility] [place] [facility] [address] [id number] [place] [address] 9796 29 Dec, 2011 [facility] [place] [facility] [address] [id number] [place] [address] 9226 28 Dec, 2011 [facility] [place] [facility] [address] [id number] [place] [address]- 1409 Dec, [facility] [place] [facility] [address] [id number] [place] [address] 4740 Dec, [facility] [place] [facility] [address] [id number] [place] [address] 4[address] Nov, [facility] [place] [facility] [address] [id number] [place] [address] 4[address] Nov, [facility] [place] [facility] [address] [id number] [place] [address] 3710 Nov, [facility] [place] [facility] [address] [id number] [place] [address] 1612 Nov, [facility] [place] [facility] [address] [id number] [place] [address]- 2048 Nov, [facility] [place] [facility] [address] [id number] [place] [address] 3006 Nov, [facility] [place] [facility] [address] [id number] [place] [address] 08[address] Nov, [facility] [place] [facility] [address] [id number] [place] [address] 7687 Nov, [facility] [place] [facility] [address] [id number] [place] [address] 6070 Nov, [facility] [place] [facility] [address] [id number] [place] [address] 5359 Nov, [facility] [place] [facility] [address] [id number] [place] [address]- 7325 Nov, [facility] [place] [facility] [address] [id number] [place] [address]- 0983 Oct, [facility] [place] [facility] [address] [id number] [place] [address]- 3173 Oct, [facility] [place] [facility] [address] [id number] [place] [address] 4[address] Oct, [facility] [place] [facility] [address] [id number] [place] [address]- 5659 Oct, [facility] [place] [facility] [address] [id number] [place] [address]- 4427 Oct, [facility] [place] [facility] [address] [id number] [place] [address]- 1786 Oct, [facility] [place] [facility] [address] [id number] [place] [address]- 4786 Oct, [facility] [place] [facility] [address] [id number] [place] [address]- 4796 Oct, [facility] [place] [facility] [address] [id number] [place] [address]- 4285 Sep, [facility] [place] [facility] [address] [id number] [place] [address]- 0514 Sep, [facility] [place] [facility] [address] [id number] [place] [address]- 7196 Sep, [facility] [place] [facility] [address] [id number] [place] [address]- 6983 Sep, [facility] [place] [facility] [address] [id number] [place] [address]- 5088 Sep, [facility] [place] [facility] [address] [id number] [place] [address]- 5164 Sep, [facility] [place] [facility] [address] [id number] [place] [address]- 5468 Sep, [facility] [place] [facility] [address] [id number] [place] [address]- [address] August, [facility] [place] [facility] [address] [id number] [place] [address] 5199 August, [facility] [place] [facility] [address] [id number] [place] [address]- 5239 August, [facility] [place] [facility] [address] [id number] [place] [address]- 3944 August, [facility] [place] [facility] [address] [id number] [place] [address] 1942 August, [facility] [address] [id number] [place] [address]- 1196 August, [facility] [place] [facility] [address] [id number] [place] [address]- 5786 August, [facility] [address] [id number] [place] [address]- 2657 August, [facility] [address] [id number] [place] [address]- 8840 Jul, [facility] [place] [facility] [address] [id number] [place] [address]- 4498 17 Jul, [address] [facility] [address] [id number] [place] [address]- 9884 Jul, [facility] [address] [id number] [place] [address]- 5147 Jul, [facility] [address] [id number] [place] [address]- 7490 Jul, [facility] [address] [id number] [place] [address]- 1863 28 Jun, 2011 [facility] [place] [facility] [address] [address] [id number] [place] [address] 2011 [facility] [place] [facility] [address] [id number] [place] [address] 20 Jun, 2011 [facility] [place] [facility] [address] [id number] [place] [address] 19 Jun, 2011 [facility] [place] [facility] [address] [id number] [place] [address] 12 Jun, 2011 [facility] [place] [facility] [address] [id number] [place] [address] Jun, [facility] [place] [facility] [address] [id number] [place] [address] Jun, [facility] [address] [id number] [place] [address] Jun, [facility] [address] [id number] [place] [address] Jun, [facility] [address] [id number] [place] [address] May, [facility] [address] [id number] [place] [address] May, [facility] [address] [id number] [place] [address] May, [facility] [address] [id number] [place] [address] May, [facility] [address] [id number] [place] [address] May, [facility] [address] [id number] [place] [address] May, [facility] [address] [id number] [place] [address] May, [facility] [address] [facility] [id number] [place] [address] May, [facility] [address] [facility] [id number] [place] [address] Apr, [facility] [place] [facility] [address] [id number] [place] [address] Apr, [facility] [place] [facility] [address] [id number] [place] [address] Apr, [facility] [place] [facility] [address] [id number] [place] [address] Apr, [facility] [address] [facility] [id number], [place] [address] Apr, [facility] [address] [id number] [place] [address] 05 Apr, 2011 [facility] [address] [id number] [place] [address] Mar, [facility] [place] [facility] [address] [id number] [place] [address] Mar, [facility] [place] [facility] [address] [id number] [place] [address] Mar, [facility] [address] [id number] [place] [address] Mar, [facility] [place] [facility] [address] [id number] [place] [address] 15 Mar, 2011 [facility] [address] [id number] [place] [address] Mar, [facility] [place] [facility] [address] [id number] [place] [address] Mar, [facility] [place] [facility] [address] [id number] [place] [address] Mar[facility] [place] [facility] [address] [id number] [place] [address] Mar, [facility] [place] [facility] [address] [id number] [place] [address] Mar, [facility] [place] [facility] [address] [id number] [place] [address] Mar, [facility] [place] [facility] [address] [id number] [place] [address] Mar, [facility] [place] [facility] [address] [id number] [place] [address] Mar, [facility] [place] [facility] [address] [id number] [place] [address] Feb, [facility] [place] [facility] [address] [id number] [place] [address] Feb, [facility] [place] [facility] [address] [id number] [place] [address] 17 Feb, 2011 [facility] [place] [facility] [address] [id number] [place] [address] Feb, [facility] [place] [facility] [address] [id number] [place] [address] Feb, [facility] [place] [facility] [address] [id number] [place] [address] Feb, [facility] [place] [facility] [address] [id number] [place] [address] Feb, [facility] [place] [facility] [address] [id number] [place] [address] Jan, [facility] [place] [facility] [address] [id number] [place] [address] Jan, [facility] [place] [facility] [address] [id number] [place] [address] Jan, [facility] [place] [facility] [address] [id number] [place] [address] Nov, [facility] [place] [facility] [address] [id number] [place] [address] Mar, [facility] [place] [facility] [address] [id number], [place] [address] Mar, [facility] [place] [facility] [address] [id number], [place] [address] 20 Mar, 2010 [facility] [place] [facility] [address] [id number] [place] [address] 13 Mar, 2010 [facility] [place] [facility] [address] [id number] [place] [address] 07 Mar, 2010 [facility] [place] [facility] [address] [id number] [place] [address] 30 Feb, 2010 [facility] [place] [facility] [address] [facility] [id number] [place] [id number] 30 Feb, 2010 [facility] [address] [facility] [id number] [place] [address] 24 Feb, 2010 [facility] [address] [facility] [id number] [place] [address] 19 Feb, 2010 [facility] [address] [facility] [id number], [place] [address] 19 Feb, 2010 [facility] [address] [facility] [id number] [place] [address] 15 Feb, 2010 IMMUNIZATIONS Vaccine Route Administration Date Status SHINGRIX IM Intramuscular August 02, 2017 Administered SOCIAL HISTORY Never Assessed REASON FOR VISIT Injection. Bryant RN PLAN OF CARE VITAL SIGNS MEDICATIONS Unknown Medications RESULTS No Results PROCEDURES Procedure Date Ordered Result Body Site SHINGRIX August 02, 2017 SINGLE IMMUNIZATION ADMIN August 02, 2017 INSTRUCTIONS MEDICATIONS ADMINISTERED No [...]
--- OUTSIDE RECORDS SUMMARY | 2017-12-22 03:50 | XMS REPORT ---
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 [facility] [place] [facility] [address] [id number] [place] [address]- 9509 Jun, [facility] [place] [facility] [address] [id number] [address]- 9302 Jun, [facility] [place] [facility] [address] [id number], [place] [address]- 8713 19 Jun, 2014 [facility] [place] [facility] [address] [id number] [place] [address]- 2179 18 Jun, 2014 [facility] [place] [facility] [address] [id number] [place] [address]- 0765 18 Jun, 2014 [facility] [place] [facility] [address] [id number] [place] [address]- 1146 18 Jun, 2014 [facility] [place] [facility] [address] [id number] [place] [address]- 1772 18 Jun, 2014 [facility] [place] [facility] [address] [id number] [place] [address]- 0710 17 Jun, 2014 [facility] [place] [facility] [address] [id number] [place] [address]- 9676 17 Jun, 2014 [facility] [place] [facility] [address] [id number] [place] [address]- 0384 17 Jun, 2014 [facility] [place] [facility] [address] [id number] [place] [address]- 0348 17 Jun, 2014 [facility] [place] [facility] [address] [id number] [place] [address]- 4623 13 Jun, 2014 [facility] [place] [facility] [address] [id number] [place] [address]- 9306 13 Jun, 2014 [facility] [place] [facility] [address] [id number] [place] [address]- 6670 12 Jun, 2014 [facility] [place] [facility] [address] [id number] [place] [address]- 2703 12 Jun, 2014 [facility] [place] [facility] [address] [id number] [place] [address]- 6023 10 Jun, 2014 [facility] [place] [facility] [address] [id number] [place] [address]- 7049 10 Jun, 2014 [facility] [place] [facility] [address] [id number] [place] [address]- 1168 10 Jun, 2014 [facility] [place] [facility] [address] [id number] [place] [address]- 6425 10 Jun, 2014 [facility] [place] [facility] [address] [id number] [place] [address]- 9171 06 Jun, 2014 [facility] [place] [facility] [address] [id number] [place] [address]- 7998 06 Jun, 2014 [facility] [place] [facility] [address] [id number] [place] [address]- 4304 Jun, 2014 [facility] [place] [facility] [address] [id number] [place] [address]- 7603 Jun, [facility] [place] [facility] [address] [id number] [place] [address]- 6717 Jun, [facility] [place] [facility] [address] [id number] [place] [address]- 2545 Jun, [facility] [place] [facility] [address] [id number] [place] [address]- 3829 May, 2014 [facility] [place] [facility] [address] [id number] [place] [address]- 0161 May, 2014 [facility] [place] [facility] [address] [id number] [place] [address]- 8476 May, 2014 [facility] [place] [facility] [address] [id number] [place] [address]- 1823 May, 2014 [facility] [place] [facility] [address] [id number] [place] [address]- 1963 May, 2014 [facility] [place] [facility] [address] [id number] [place] [address]- 7182 May, 2014 [facility] [place] [facility] [address] [id number] [place] [address]- 0193 May, 2014 [facility] [place] [facility] [address] [id number] [place] [address]- 7440 May, 2014 [facility] [place] [facility] [address] [id number] [place] [address]- 0837 May, 2014 [facility] [place] [facility] [address] [id number] [place] [address]- 0582 May, 2014 [facility] [place] [facility] [address] [id number] [place] [address]- 0836 May, 2014 [facility] [place] [facility] [address] [facility] [id number] [place] [address]- 0542 May, 2014 [facility] [place] [facility] [address] [id number] [place] [address]- 1152 05 May, 2014 [facility] [place] [facility] [address] [id number] [place] [address]- 1266 May, [facility] [place] [facility] [address] [id number] [place] [address]- 0226 May, [facility] [place] [facility] [address] [id number] [place] [address]- 1850 May, [facility] [place] [facility] [address] [id number] [place] [address]- 8359 Apr, [facility] [place] [facility] [address] [id number] [place] [address]- 5048 Apr, [facility] [place] [facility] [address] [id number] [place] [address]- 2363 Apr, [facility] [place] [facility] [address] [id number] [place] [address]- 5597 Apr, [facility] [place] [facility] [address] [id number] [place] [address]- 8935 Apr, [facility] [place] [facility] [address] [id number] [place] [address]- 2990 Apr, [facility] [place] [facility] [address] [id number] [place] [address]- 3952 Apr, [facility] [place] [facility] [address] [id number] [place] [address]- 1908 Apr, [facility] [place] [facility] [address] [id number] [place] [address]- 8605 Apr, [facility] [place] [facility] [address] [id number] [place] [address]- 1839 Apr, [facility] [place] [facility] [address] [id number] [place] [address]- 7840 Apr, [facility] [place] [facility] [address] [id number] [place] [address]- 5261 Apr, [facility] [place] [facility] [address] [id number] [place] [address]- [address] Apr, [facility] [place] [facility] [address] [id number] [place] [address] Apr, [facility] [place] [facility] [address] [id number] [place] [address] Apr, [facility] [place] [facility] [address] [id number] [place] [address] Mar, [facility] [place] [facility] [address] [id number] [place] [address] Mar, [facility] [place] [facility] [address] [id number] [place] [address] Mar, [facility] [place] [facility] [address] [id number] [place] [address] Mar, [facility] [place] [facility] [address] [id number] [place] [address] Mar, [facility] [place] [facility] [address] [id number] [place] [address]398 Mar, [facility] [place] [facility] [address] [id number] [place] [address] 15 Mar, 2014 [facility] [place] [facility] [address] [id number] [place] [address] 15 Mar, 2014 [facility] [place] [facility] [address] [id number] [address] 15 Mar, 2014 [facility] [place] [facility] [address] [id number] [place] [address]- [address] 15 Mar, 2014 [facility] [place] [facility] [address] [id number] [place] [address]- [address] 15 Mar, 2014 [facility] [place] [facility] [address] [id number] [place] [address]- [address] 15 Mar, 2014 [facility] [place] [facility] [address] [id number] [place] [address]- [address] Mar, [facility] [place] [facility] [address] [id number] [place] [address]- [address] Mar, [facility] [place] [facility] [address] [id number] [place] [address]- [address] Mar, [facility] [place] [facility] [address] [id number] [place] [address]- 18[address] Mar, [facility] [place] [facility] [address] [id number] [place] [address]- [address] Mar, [facility] [place] [facility] [address] [id number] [place] [address]- [address] Mar, [facility] [place] [facility] [address] [id number] [place] [address]- [address]489 Feb, [facility] [place] [facility] [address] [id number] [place] [address]- [address]677 Feb, [facility] [place] [facility] [address] [id number] [place] [address]- [address] Feb, [facility] [place] [facility] [address] [id number] [place] [address]- [address]702 Feb, [facility] [place] [facility] [address] [facility] [id number] [place] [address]- [address]44 Feb, [facility] [place] [facility] [address] [id number] [place] [address]- [address] Feb, [facility] [place] [facility] [address] [id number] [place] [address] Feb, [facility] [place] [facility] [address] [id number] [place] [address] Feb, [facility] [place] [facility] [address] [id number] [place] [address]- [address] Jan, [facility] [place] [facility] [address] [id number] [place] [address]- [address] Jan, [facility] [place] [facility] [address] [id number] [place] [address]- [address] Jan, [facility] [place] [facility] [address] [id number] [place] [address]- [address] Jan, [facility] [place] [facility] [address] [id number] [place] [address]- 2497 Jan, [facility] [place] [facility] [address] [id number] [place] [address]- [address] Jan, [facility] [place] [facility] [address] [id number] [place] [address]- [address] Jan, [facility] [place] [facility] [address] [id number] [place] [address]- 7725 Jan, [facility] [place] [facility] [address] [id number] [place] [address]- 68[address] Jan, [facility] [place] [facility] [address] [id number] [place] [address]- 38[address] Jan, [facility] [place] [facility] [address] [id number] [place] [address]- 65[address] Jan, [facility] [place] [facility] [address] [id number] [place] [address]- [address] Jan, [facility] [place] [facility] [address] [id number] [place] [address]- 9598 Jan, [facility] [place] [facility] [address] [id number], [place] [address] Jan, [facility] [place] [facility] [address] [id number] [place] [address]- [address]604 Jan, [facility] [place] [facility] [address] [id number] [place] [address]- [address] 16 Jan, 2014 [facility] [place] [facility] [address] [id number], [place] [address] Jan, [facility] [place] [facility] [address] [id number], [place] [address]- [address] 13 Jan, 2014 [facility] [place] [facility] [address] [id number] [place] [address]46 29 Sep, 2013 [facility] [place] [facility] [address] [id number] [place] [address] 2546 29 Dec, 2013 [facility] [place] [facility] [address] [id number] [place] [address] 2546 26 Dec, 2013 [facility] [place] [facility] [address] [id number] [place] [address] 2546 26 Dec, 2013 [facility] [place] [facility] [address] [id number] [place] [address] 2547 26 Dec, 2013 [facility] [place] [facility] [address] [id number] [place] [address]- 5631 26 Dec, 2013 [facility] [place] [facility] [address] [id number] [place] [address]- [address] 23 Dec, 2013 [facility] [place] [facility] [address] [id number] [place] [address]- 1286 23 Dec, 2013 [facility] [place] [facility] [address] [id number] [place] [address] 2547 22 Dec, 2013 [facility] [place] [facility] [address] [id number] [place] [address] 2548 22 Dec, 2013 [facility] [place] [facility] [address] [id number], [place] [address]48 16 Dec, 2013 [facility] [place] [facility] [address] [id number], [place] [address]- [address]46 16 Dec, 2013 [facility] [place] [facility] [address] [id number], [place] [address] 2546 15 Dec, 2013 [facility] [place] [facility] [address] [id number] [place] [address] 2546 15 Dec, 2013 [facility] [place] [facility] [address] [id number] [place] [address]44 09 Dec, 2013 [facility] [place] [facility] [address] [id number] [place] [address] 05[address] Dec, [facility] [place] [facility] [address] [id number] [place] [address] 5250 Dec, [facility] [place] [facility] [address] [id number] [place] [address] 5955 Nov, [facility] [place] [facility] [address] [id number] [place] [address]- 2827 Nov, [facility] [place] [facility] [address] [id number] [place] [address]- 6224 Nov, [facility] [place] [facility] [address] [id number] [place] [address]- 3294 Nov, [facility] [place] [facility] [address] [id number] [place] [address]- 2746 Nov, [facility] [place] [facility] [address] [id number] [place] [address]- 2738 Nov, [facility] [place] [facility] [address] [id number] [place] [address]- 4292 Nov, [facility] [place] [facility] [address] [id number] [place] [address]- 4165 Nov, [facility] [place] [facility] [address] [id number] [place] [address]- 9171 Nov, [facility] [place] [facility] [address] [id number] [place] [address]- 0912 Nov, [facility] [place] [facility] [address] [id number] [place] [address]- 7643 Nov, [facility] [place] [facility] [address] [id number] [place] [address]- 5839 Nov, [facility] [place] [facility] [address] [id number] [place] [address]- 5414 Nov, [facility] [place] [facility] [address] [id number] [place] [address]- 1460 Nov, [facility] [place] [facility] [address] [id number] [place] [address]- 9994 Nov, [facility] [place] [facility] [address] [id number] [place] [address]- 9799 Nov, [facility] [place] [facility] [address] [id number] [place] [address]- 5895 Nov, [facility] [place] [facility] [address] [id number] [place] [address]- 3699 Nov, [facility] [place] [facility] [address] [id number] [place] [address]- 4557 Nov, [facility] [place] [facility] [address] [id number] [place] [address]- 5644 Nov, [facility] [place] [facility] [address] [id number] [place] [address]- 0865 Nov, [facility] [place] [facility] [address] [id number] [place] [address]- 4002 Oct, [facility] [place] [facility] [address] [id number] [place] [address]- 5585 Oct, [facility] [place] [facility] [address] [id number] [place] [address]- 0924 Oct, [facility] [place] [facility] [address] [id number] [place] [address]- 4993 Oct, [facility] [place] [facility] [address] [id number] [place] [address]- 6318 Oct, [facility] [place] [facility] [address] [id number] [place] [address]- 3858 Oct, [facility] [place] [facility] [address] [id number] [place] [address]- 6921 Oct, [facility] [place] [facility] [address] [id number] [place] [address]- 7098 Oct, [facility] [place] [facility] [address] [id number] [place] [address]- 9509 15 Oct, 2013 [facility] [place] [facility] [address] [id number] [place] [address]- 0378 14 Oct, 2013 [facility] [place] [facility] [address] [id number] [place] [address]- 7631 Oct, [facility] [place] [facility] [address] [id number] [place] [address]- 1266 Oct, [facility] [place] [facility] [address] [id number] [place] [address]- 2113 Oct, [facility] [place] [facility] [address] [id number] [place] [address]- 4532 Oct, [facility] [place] [facility] [address] [id number] [place] [address]- 5606 Oct, [facility] [place] [facility] [address] [id number] [place] [address]- 8156 Sep, [facility] [place] [facility] [address] [id number] [place] [address]- 1043 Sep, [facility] [place] [facility] [address] [id number] [place] [address]- 4303 Sep, [facility] [place] [facility] [address] [id number] [place] [address]- 0641 Sep, [facility] [place] [facility] [address] [id number] [place] [address]- 1168 Sep, [facility] [place] [facility] [address] [id number] [place] [address]- 3310 Sep, [facility] [place] [facility] [address] [id number] [place] [address]- 6836 Sep, [facility] [place] [facility] [address] [id number] [place] [address]- 2081 Sep, [facility] [place] [facility] [address] [id number] [place] [address]- 2775 17 Sep, 2013 [facility] [place] [facility] [address] [id number] [place] [address]- 8052 Sep, [facility] [place] [facility] [address] [id number] [place] [address]- 6013 Sep, [facility] [place] [facility] [address] [id number] [place] [address]- 5054 Sep, [facility] [place] [facility] [address] [id number] [place] [address]- 3778 Sep, [facility] [place] [facility] [address] [id number] [place] [address]- 4337 Sep, [facility] [place] [facility] [address] [id number] [place] [address]- 7363 Sep, [facility] [place] [facility] [address] [id number] [place] [address]- 0514 Sep, [facility] [place] [facility] [address] [id number] [place] [address]- 1121 Sep, [facility] [place] [facility] [address] [id number] [place] [address]- 7126 Sep, [facility] [place] [facility] [address] [id number] [place] [address]- 0346 Sep, [facility] [place] [facility] [address] [id number] [place] [address]- 2744 Sep, [facility] [place] [facility] [address] [id number] [place] [address]- 6730 Sep, [facility] [place] [facility] [address] [id number] [place] [address]- 3193 Sep, [facility] [place] [facility] [address] [id number] [place] [address]- 2454 August, [facility] [place] [facility] [address] [id number] [place] [address]- 5607 August, [facility] [place] [facility] [address] [id number] [place] [address]- 3427 August, [facility] [address] [id number] [place] [address]- 9194 August, [facility] [place] [facility] [address] [id number] [place] [address]- 3824 August, [facility] [place] [facility] [address] [id number] [place] [address]- 4954 August, [facility] [place] [facility] [address] [id number] [place] [address]- 2911 August, [facility] [place] [facility] [address] [id number] [place] [address]- 8686 August, [facility] [place] [facility] [address] [id number] [place] [address]- 0315 August, [facility] [place] [facility] [address] [id number] [place] [address]- 6509 August, [facility] [place] [facility] [address] [id number] [place] [address]- 8459 August, [facility] [place] [facility] [address] [id number] [place] [address]- 9400 August, [facility] [place] [facility] [address] [id number] [place] [address]- 8389 August, [facility] [place] [facility] [address] [id number] [place] [address]- 7489 August, [facility] [place] [facility] [address] [id number] [place] [address]- 6365 August, [facility] [place] [facility] [address] [id number] [place] [address]- 0474 August, [facility] [place] [facility] [address] [id number] [place] [address]- 8965 August, [facility] [place] [facility] [address] [id number] [place] [address]- 8064 August, [facility] [place] [facility] [address] [id number] [place] [address]- 0793 Jul, [facility] [place] [facility] [address] [id number] [place] [address]- 9771 Jul, [facility] [place] [facility] [address] [id number] [place] [address]- 7596 Jul, [facility] [place] [facility] [address] [id number] [place] [address]- 2658 Jul, [facility] [place] [facility] [address] [id number] [place] [address]- 3862 Jul, [facility] [place] [facility] [address] [id number] [place] [address]- 1382 Jul, [facility] [place] [facility] [address] [id number] [place] [address]- 9123 Jul, [facility] [place] [facility] [address] [id number] [place] [address]- 7665 Jul, [facility] [place] [facility] [address] [id number] [place] [address]- 0220 Jul, [facility] [place] [facility] [address] [id number] [place] [address]- 4706 Jul, [facility] [place] [facility] [address] [id number] [place] [address]- 8320 Jul, [facility] [place] [facility] [address] [id number] [place] [address]- 0590 Jul, [facility] [place] [facility] [address] [id number] [place] [address]- 7517 Jul, [facility] [place] [facility] [address] [id number] [place] [address]- 9086 Jul, [facility] [place] [facility] [address] [id number] [place] [address]- 8045 Jul, [facility] [place] [facility] [address] [id number] [place] [address]- 2184 Jul, [facility] [place] [facility] [address] [id number] [place] [address]- 1784 17 Jul, 2013 [facility] [place] [facility] [address] [id number] [place] [address]- 0328 16 Jul, 2013 [facility] [place] [facility] [address] [id number] [place] [address]- 2129 16 Jul, 2013 [facility] [place] [facility] [address] [id number] [place] [address]- 6888 15 Jul, 2013 [facility] [place] [facility] [address] [id number] [place] [address]- 8937 15 Jul, 2013 [facility] [place] [facility] [address] [id number] [place] [address]- 0591 14 Jul, 2013 [facility] [place] [facility] [address] [id number] [place] [address]- 4666 Jul, [facility] [place] [facility] [address] [id number] [place] [address]- 5513 Jul, [facility] [place] [facility] [address] [id number] [place] [address]- 6843 Jul, [facility] [place] [facility] [address] [id number] [place] [address]- 2679 Jul, [facility] [place] [facility] [address] [id number] [place] [address]- 4146 Jul, [facility] [place] [facility] [address] [id number] [place] [address]- 1738 Jul, [facility] [place] [facility] [address] [id number] [place] [address]- 4453 Jul, [facility] [place] [facility] [address] [id number] [place] [address]- 5505 Jun, [facility] [place] [facility] [address] [id number] [place] [address]- 8284 Jun, [facility] [place] [facility] [address] [id number] [place] [address]- 7582 17 Jun, 2013 [facility] [place] [facility] [address] [id number] [place] [address]- 9720 17 Jun, 2013 [facility] [place] [facility] [address] [id number] [place] [address]- 3657 Jun, [facility] [place] [facility] [address] [id number] [place] [address]- 4170 Jun, [facility] [place] [facility] [address] [id number] [place] [address]- 8708 Jun, [facility] [place] [facility] [address] [id number] [place] [address]- 1037 Jun, [facility] [place] [facility] [address] [id number] [place] [address]- 5847 Jun, [facility] [place] [facility] [address] [facility] [id number] [place] [address]- 7555 Jun, [facility] [place] [facility] [address] [id number] [place] [address]- 7796 Jun, [facility] [place] [facility] [address] [id number] [place] [address]- 0434 Jun, [facility] [place] [facility] [address] [facility] [id number] [place] [address]- 3902 May, [facility] [place] [facility] [address] [id number] [place] [address]- 1450 May, [facility] [place] [facility] [address] [id number] [place] [address]- 7199 May, [facility] [place] [facility] [address] [id number] [place] [address]- 8643 May, [facility] [place] [facility] [address] [id number] [place] [address]- 2333 May, [facility] [place] [facility] [address] [facility] [id number] [place] [address]- 6381 May, [facility] [place] [facility] [address] [id number] [place] [address]- 9074 May, [facility] [place] [facility] [address] [id number] [place] [address]- 0925 May, [facility] [place] [facility] [address] [id number] [place] [address]- 5236 May, [facility] [place] [facility] [address] [id number] [place] [address]- 5566 May, [facility] [place] [facility] [address] [id number] [place] [address]- 2431 Apr, [facility] [place] [facility] [address] [id number] [place] [address]- 3337 Apr, [facility] [place] [facility] [address] [id number] [place] [address]- 3082 Apr, [facility] [place] [facility] [address] [id number] [place] [address]- 9058 Apr, [facility] [place] [facility] [address] [id number] [place] [address]- 8332 Apr, [facility] [place] [facility] [address] [id number] [place] [address]- 4770 Apr, [facility] [place] [facility] [address] [id number] [place] [address]- 0618 Apr, [facility] [place] [facility] [address] [id number] [place] [address]- 6632 Apr, [facility] [place] [facility] [address] [id number] [place] [address]- 8580 Apr, [facility] [place] [facility] [address] [id number] [place] [address]- 2748 Apr, [facility] [place] [facility] [address] [id number] [place] [address]- 4987 Mar, [facility] [place] [facility] [address] [id number] [address]- 2942 Mar, [facility] [place] [facility] [address] [id number] [place] [address]- 0642 Mar, [facility] [place] [facility] [address] [id number] [place] [address]- 3050 Mar, [facility] [place] [facility] [address] [id number] [place] [address]- 2246 Mar, [facility] [place] [facility] [address] [id number] [place] [address]- 3451 Mar, [facility] [place] [facility] [address] [id number] [place] [address]- 3986 Feb, [facility] [place] [facility] [address] [id number] [place] [address]- 7588 Feb, [facility] [place] [facility] [address] [facility] [id number] [place] [address]- 4099 Feb, [facility] [place] [facility] [address] [id number] [place] [address]- 6128 Jan, [facility] [place] [facility] [address] [facility] [id number] [place] [address]- 8607 30 Jan, 2013 [facility] [place] [facility] [address] [facility] [id number] [place] [address]- 9827 Jan, [facility] [place] [facility] [address] [id number], [place] [address]- 0235 28 Jan, 2013 [facility] [place] [facility] [address] [id number], [place] [address]- 3201 15 Jan, 2013 [facility] [place] [facility] [address] [id number] [place] [address]- 0737 15 Jan, 2013 [facility] [place] [facility] [address] [facility] [id number], [place] [address]- 4411 Jan, [facility] [place] [facility] [address] [facility] [id number], [place] [address]- 4260 11 Jan, 2013 [facility] [place] [facility] [address] [id number] [place] [address]- 4545 Jan, [facility] [place] [facility] [address] [id number] [place] [address]- 3655 Jan, [facility] [place] [facility] [address] [id number] [place] [address]- 4686 30 Dec, 2012 [facility] [place] [facility] [address] [id number] [place] [address]- 6796 25 Dec, 2012 [facility] [place] [facility] [address] [id number] [place] [address]- 0756 11 Dec, 2012 [facility] [place] [facility] [address] [id number] [place] [address]- 7340 Dec, 2012 [facility] [place] [facility] [address] [id number] [place] [address]- 2252 05 Dec, 2012 [facility] [place] [facility] [address] [id number] [place] [address]- 8336 Dec, 2012 [facility] [place] [facility] [address] [id number] [place] [address]- 8708 Nov, [facility] [place] [facility] [address] [id number] [place] [address]- 9621 Nov, [facility] [place] [facility] [address] [id number] [place] [address]- 2973 Nov, [facility] [place] [facility] [address] [id number] [place] [address]- 7010 Nov, [facility] [place] [facility] [address] [id number] [place] [address] 2541 Nov, [facility] [place] [facility] [address] [id number] [place] [address]- 5106 Nov, [facility] [place] [facility] [address] [id number] [place] [address]- 2547 Nov, [facility] [place] [facility] [address] [id number] [place] [address]- 6945 Nov, [facility] [address] [id number] [place] [address]- 9309 Nov, [facility] [place] [facility] [address] [id number] [place] [address]- 2059 Nov, [facility] [place] [facility] [address] [id number] [place] [address]- 5446 Nov, [facility] [place] [facility] [address] [id number] [place] [address]- 9898 Nov, [facility] [place] [facility] [address] [id number] [place] [address]- 9233 Oct, [facility] [place] [facility] [address] [id number] [place] [address]- 7359 Oct, [facility] [place] [facility] [address] [id number] [place] [address]- 5276 Oct, [facility] [place] [facility] [address] [id number] [place] [address]- 7459 Sep, [facility] [place] [facility] [address] [id number] [place] [address]- 9506 Sep, [facility] [place] [facility] [address] [id number] [place] [address]- 6193 Sep, [facility] [place] [facility] [address] [id number] [place] [address]- 6808 August, [facility] [place] [facility] [address] [id number] [place] [address]- 0141 August, [facility] [place] [facility] [address] [id number] [place] [address]- 7382 August, [facility] [place] [facility] [address] [id number] [place] [address]- 3128 August, [facility] [place] [facility] [address] [id number] [place] [address]- 9932 August, [facility] [place] [facility] [address] [id number] [place] [address]- 7098 August, [facility] [address] [id number] [place] [address] 30 Jul, 2012 [facility] [place] [facility] [address] [id number] [place] [address] 15 Jul, 2012 [facility] [address] [id number] [place] [address] Jul, [facility] [place] [facility] [address] [id number] [place] [address] Jul, [facility] [address] [id number] [place] [address] Jul, [facility] [place] [facility] [address] [id number] [place] [address] Jul, [facility] [address] [id number] [place] [address] 2012 [facility] [address] [id number] [place] [address] 20 Jun, 2012 [facility] [address] [id number] [place] [address] 18 Jun, 2012 [facility] [address] [id number] [place] [address] 14 Jun, 2012 [facility] [place] [facility] [address] [id number] [place] [address] 04 Jun, 2012 [facility] [place] [facility] [address] [id number] [place] [address] May, [facility] [place] [facility] [address] [id number] [place] [address] 12 May, 2012 [facility] [place] [facility] [address] [id number] [place] [address] May, [facility] [place] [facility] [address] [id number] [place] [address] 08 May, 2012 [facility] [address] [id number] [place] [address] Apr, [facility] [place] [facility] [address] [id number] [place] [address] Apr, [facility] [place] [facility] [address] [id number] [place] [address] Apr, [facility] [place] [facility] [address] [id number] [place] [address] Mar, [facility] [place] [facility] [address] [id number] [place] [address] Mar, [facility] [place] [facility] [address] [id number] [place] [address] Mar, [facility] [place] [facility] [address] [id number] [place] [address] Mar, [facility] [place] [facility] [address] [id number] [place] [address] Mar, [facility] [place] [facility] [address] [id number] [place] [address] Mar, [facility] [place] [facility] [address] [id number] [place] [address] Mar, [facility] [place] [facility] [address] [id number] [place] [address] 39[address] Mar, [facility] [place] [facility] [address] [id number], [place] [address] Feb, [facility] [place] [facility] [address] [id number] [place] [address] Feb, [facility] [place] [facility] [address] [id number] [place] [address] Feb, [facility] [place] [facility] [address] [id number] [place] [address] Feb, [facility] [place] [facility] [address] [id number], [place] [address] Feb, [facility] [place] [facility] [address] [id number] [place] [address] Feb, [facility] [place] [facility] [address] [id number] [place] [address] Feb, [facility] [place] [facility] [address] [facility] [id number] [place] [address] Feb, [facility] [place] [facility] [address] [id number] [place] [address] Feb, [facility] [place] [facility] [address] [id number] [place] [address] Feb, [facility] [place] [facility] [address] [facility] [id number] [place] [address] Feb, [facility] [place] [facility] [address] [id number] [place] [address] Feb, [facility] [place] [facility] [address] [facility] [id number] [place] [address] 13[address] Feb, [facility] [place] [facility] [address] [facility] [id number] [place] [address] Feb, [facility] [place] [facility] [address] [facility] [id number] [place] [address] 76[address] Feb, [facility] [place] [facility] [address] [facility] [id number], [place] [address] Feb, [facility] [place] [facility] [address] [facility] [id number], [place] [address] Feb, [facility] [place] [facility] [address] [facility] [id number], [place] [address] Feb, [facility] [place] [facility] [address] [facility] [id number] [place] [address] Jan, [facility] [place] [facility] [address] [facility] [id number], [place] [address] Jan, [facility] [place] [facility] [address] [id number] [place] [address] 22 Jan, 2011 [facility] [place] [facility] [address] [id number] [place] [address] 4031 20 Jan, 2012 [facility] [place] [facility] [address] [id number] [place] [address] 20 Jan, 2012 [facility] [place] [facility] [address] [id number] [place] [address]- [address]378 19 Jan, 2012 [facility] [place] [facility] [address] [id number] [place] [address] 99[address] 18 Jan, 2012 [facility] [place] [facility] [address] [id number] [place] [address] 18 Jan, 2012 [facility] [place] [facility] [address] [id number] [place] [address] 15 Jan, 2012 [facility] [place] [facility] [address] [id number] [place] [address] 15 Jan, 2012 [facility] [place] [facility] [address] [id number] [place] [address] 9[address] 11 Jan, 2012 [facility] [place] [facility] [address] [id number] [place] [address]- 8291 11 Jan, 2012 [facility] [place] [facility] [address] [facility] [id number] [place] [address]- 2793 10 Jan, 2012 [facility] [place] [facility] [address] [id number] [place] [address]- 0807 09 Jan, 2012 [facility] [place] [facility] [address] [id number] [place] [address]- 3[address] 02 Jan, 2012 [facility] [place] [facility] [address] [id number] [place] [address]- 2076 29 Dec, 2011 [facility] [place] [facility] [address] [id number] [place] [address]- 6086 28 Dec, 2011 [facility] [place] [facility] [address] [id number] [place] [address]- 3465 Dec, [facility] [place] [facility] [address] [id number] [place] [address]- 29[address] Dec, [facility] [place] [facility] [address] [id number] [place] [address]- 36[address] Nov, [facility] [place] [facility] [address] [id number] [place] [address]- 8[address] Nov, [facility] [place] [facility] [address] [id number] [place] [address]- [address] Nov, [facility] [place] [facility] [address] [id number] [place] [address]- 1236 Nov, [facility] [place] [facility] [address] [id number] [place] [address]- 0160 Nov, [facility] [place] [facility] [address] [id number] [place] [address]- 0890 Nov, [facility] [place] [facility] [address] [id number] [place] [address]- [address] Nov, [facility] [place] [facility] [address] [id number] [place] [address]- 118[address] Nov, [facility] [place] [facility] [address] [id number] [place] [address]- 97[address] Nov, [facility] [place] [facility] [address] [address] [id number] [place] [address] Nov, [facility] [place] [facility] [address] [id number] [place] [address] Nov, [facility] [place] [facility] [address] [id number] [place] [address] Oct, [facility] [place] [facility] [address] [id number] [place] [address] Oct, [facility] [place] [facility] [address] [id number] [place] [address] Oct, [facility] [place] [facility] [address] [id number] [place] [address] Oct, [facility] [place] [facility] [address] [id number] [place] [address] Oct, [facility] [place] [facility] [address] [id number] [place] [address] Oct, [facility] [place] [facility] [address] [id number] [place] [address] Oct, [facility] [place] [facility] [address] [id number] [place] [address] Oct, [facility] [place] [facility] [address] [id number] [place] [address] Sep, [facility] [place] [facility] [address] [id number] [place] [address] Sep, [facility] [place] [facility] [address] [id number] [place] [address] Sep, [facility] [place] [facility] [address] [id number] [place] [address]71 Sep, [facility] [place] [facility] [address] [id number] [place] [address] Sep, [facility] [place] [facility] [address] [id number] [place] [address] 65[address] Sep, [facility] [place] [facility] [address] [id number] [place] [address] 4805 Sep, [facility] [place] [facility] [address] [id number] [place] [address] August, [facility] [place] [facility] [address] [id number] [place] [address] August, [facility] [place] [facility] [address] [id number] [place] [address] August, [facility] [place] [facility] [address] [id number] [place] [address] August, [facility] [place] [facility] [address] [id number] [place] [address] 8927 August, [facility] [address] [id number] [place] [address] August, [facility] [place] [facility] [address] [id number] [place] [address] August, [facility] [address] [id number] [place] [address]- 8765 August, [facility] [address] [id number] [place] [address] Jul, [facility] [place] [facility] [address] [id number] [place] [address] 17 Jul, 2011 [facility] [address] [id number] [place] [address] Jul, [facility] [address] [id number] [place] [address] Jul, [facility] [address] [id number] [place] [address] 8789 Jul, [facility] [address] [id number] [place] [address] 28 Jun, 2011 [facility] [place] [facility] [address] [id number] [place] [address] 2011 [facility] [place] [facility] [address] [id number] [place] [address] 1751 20 Jun, 2011 [facility] [place] [facility] [address] [id number] [place] [address] 19 Jun, 2011 [facility] [place] [facility] [address] [id number] [place] [address]- 5897 12 Jun, 2011 [facility] [place] [facility] [address] [id number] [place] [address] 69[address] Jun, [facility] [place] [facility] [address] [id number] [place] [address] 4506 Jun, [facility] [address] [id number] [place] [address]- [address]235 Jun, [facility] [address] [id number] [place] [address] 6[address] Jun, [facility] [address] [id number] [place] [address] 1336 May, [facility] [address] [id number] [place] [address] 0841 May, [facility] [address] [id number] [place] [address] 8676 May, [facility] [address] [id number] [place] [address] 1396 May, [facility] [address] [id number] [place] [address]- 4820 May, [facility] [address] [id number] [place] [address] 4819 May, [facility] [address] [id number] [place] [address]- 2744 May, [facility] [address] [facility] [id number] [place] [address]- [address] May, [facility] [address] [facility] [id number] [place] [address]- 2[address] Apr, [facility] [place] [facility] [address] [id number] [place] [address]- 8634 Apr, [facility] [place] [facility] [address] [id number] [place] [address] 7329 Apr, [facility] [place] [facility] [address] [id number] [place] [address]- 5096 Apr, [facility] [address] [facility] [id number] [address] Apr, [facility] [address] [id number] [place] [address]- 1791 05 Apr, 2011 [facility] [address] [id number] [place] [address]- 2982 Mar, [facility] [place] [facility] [address] [id number] [place] [address]- 9668 Mar, [facility] [place] [facility] [address] [id number] [place] [address]- 3105 Mar, [facility] [address] [id number] [place] [address]- 4347 Mar, [facility] [place] [facility] [address] [id number] [place] [address]- 8274 15 Mar, 2011 [facility] [address] [id number] [place] [address]- 2158 Mar, [facility] [place] [facility] [address] [id number] [place] [address]- 4084 Mar, [facility] [place] [facility] [address] [id number] [place] [address]- 9685 Mar, [facility] [place] [facility] [address] [id number] [place] [address]- 0476 Mar, [facility] [place] [facility] [address] [id number] [place] [address]- 1832 Mar, [facility] [place] [facility] [address] [id number] [place] [address]- 3122 Mar, [facility] [place] [facility] [address] [id number] [place] [address]- 0465 Mar, [facility] [place] [facility] [address] [id number] [place] [address]- 7077 Mar, [facility] [place] [facility] [address] [id number] [place] [address]- 2831 Feb, [facility] [place] [facility] [address] [id number] [place] [address]- 2226 Feb, [facility] [place] [facility] [address] [id number] [place] [address] 17 Feb, 2011 [facility] [place] [facility] [address] [id number] [place] [address]- 7746 Feb, [facility] [place] [facility] [address] [id number] [place] [address]- 8600 Feb, [facility] [place] [facility] [address] [id number] [place] [address]- 2125 Feb, [facility] [place] [facility] [address] [id number] [place] [address]- 9142 Feb, [facility] [place] [facility] [address] [id number] [place] [address]- 0713 Jan, [facility] [place] [facility] [address] [id number] [place] [address]- 3886 Jan, [facility] [place] [facility] [address] [id number] [place] [address]- 1194 Jan, [facility] [place] [facility] [address] [id number] [place] [address]- 7305 Nov, [facility] [place] [facility] [address] [id number] [place] [address]- 5240 Mar, [facility] [place] [facility] [address] [id number], [place] [address]- 5067 Mar, [facility] [place] [facility] [address] [id number], [place] [address]- 4532 20 Mar, 2010 [facility] [place] [facility] [address] [id number] [place] [address]- 2955 13 Mar, 2010 [facility] [place] [facility] [address] [id number] [place] [address] 07 Mar, 2010 [facility] [place] [facility] [address] [id number] [place] [address]- 1239 30 Feb, 2010 [facility] [place] [facility] [address] [facility] [id number] [place] [address]- [address]87 30 Feb, 2010 [facility] [address] [facility] [id number] [place] [address]- 6831 24 Feb, 2010 [facility] [address] [facility] [id number] [place] [address]- 2599 19 Feb, 2010 [facility] [address] [facility] [id number], [place] [address]- 2985 19 Feb, 2010 [facility] [address] [facility] [id number] [place] [address]- 6031 15 Feb, 2010 IMMUNIZATIONS No Known Immunizations [...] Mastectomy 02/01/2017 Hospitalization History surgeries Hospitalization History [facility] ED 10/06/2017
--- OUTSIDE RECORDS SUMMARY | 2017-12-22 03:52 | XMS REPORT ---
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 [facility] [address] [id number] [address]- 6120 19 Jun, 2014 [facility] [place] [facility] [address] [id number] [place] [address]- 7568 18 Jun, 2014 [facility] [place] [facility] [address] [id number] [place] [address]- 2252 18 Jun, 2014 [facility] [place] [facility] [address] [id number] [place] [address]- 3671 18 Jun, 2014 [facility] [place] [facility] [address] [id number] [place] [address]- 7696 18 Jun, 2014 [facility] [place] [facility] [address] [id number] [place] [address]- 4596 17 Jun, 2014 [facility] [place] [facility] [address] [id number] [place] [address]- 5636 17 Jun, 2014 [facility] [place] [facility] [address] [id number] [place] [address]- 7411 17 Jun, 2014 [facility] [place] [facility] [address] [id number] [place] [address]- 0010 17 Jun, 2014 [facility] [place] [facility] [address] [id number] [place] [address]- 7987 13 Jun, 2014 [facility] [place] [facility] [address] [id number] [place] [address]- 5677 13 Jun, 2014 [facility] [place] [facility] [address] [id number] [place] [address]- 1524 12 Jun, 2014 [facility] [place] [facility] [address] [id number] [place] [address]- 3887 12 Jun, 2014 [facility] [place] [facility] [address] [id number] [place] [address]- 0870 10 Jun, 2014 [facility] [place] [facility] [address] [id number] [place] [address]- 4471 10 Jun, 2014 [facility] [place] [facility] [address] [id number] [place] [address]- 6138 10 Jun, 2014 [facility] [place] [facility] [address] [id number] [place] [address]- 1422 10 Jun, 2014 [facility] [place] [facility] [address] [id number] [place] [address]- 5892 06 Jun, 2014 [facility] [place] [facility] [address] [id number] [place] [address]- 7795 06 Jun, 2014 [facility] [place] [facility] [address] [id number] [place] [address]- 4720 Jun, 2014 [facility] [place] [facility] [address] [id number] [place] [address]- 9974 Jun, [facility] [place] [facility] [address] [id number] [place] [address]- 7213 Jun, [facility] [place] [facility] [address] [id number] [place] [address]- 6837 Jun, [facility] [place] [facility] [address] [id number] [place] [address]- 6500 May, 2014 [facility] [place] [facility] [address] [id number] [place] [address]- 6036 May, 2014 [facility] [place] [facility] [address] [id number] [place] [address]- 2433 May, 2014 [facility] [place] [facility] [address] [id number] [place] [address]- 1240 May, 2014 [facility] [place] [facility] [address] [id number] [place] [address]- 2873 May, 2014 [facility] [place] [facility] [address] [id number] [place] [address]- 1067 May, 2014 [facility] [place] [facility] [address] [id number] [place] [address]- 8750 May, 2014 [facility] [place] [facility] [address] [id number] [place] [address]- 2225 May, 2014 [facility] [place] [facility] [address] [id number] [place] [address]- 4008 May, 2014 [facility] [place] [facility] [address] [id number] [place] [address]- 9574 May, 2014 [facility] [place] [facility] [address] [id number] [place] [address]- 3087 May, 2014 [facility] [place] [facility] [address] [facility] [id number] [place] [address]- 5766 May, 2014 [facility] [place] [facility] [address] [id number] [place] [address]- 8087 05 May, 2014 [facility] [place] [facility] [address] [id number] [place] [address]- 1561 May, [facility] [place] [facility] [address] [id number] [place] [address]- 8526 May, [facility] [place] [facility] [address] [id number] [place] [address]- 8709 May, [facility] [place] [facility] [address] [id number] [place] [address]- 6861 Apr, [facility] [place] [facility] [address] [id number] [place] [address]- 0301 Apr, [facility] [place] [facility] [address] [id number] [place] [address]- 8325 Apr, [facility] [place] [facility] [address] [id number] [place] [address]- 1303 Apr, [facility] [place] [facility] [address] [id number] [place] [address]- 1460 Apr, [facility] [place] [facility] [address] [id number] [place] [address]- 2877 Apr, [facility] [place] [facility] [address] [id number] [place] [address]- 0810 Apr, [facility] [place] [facility] [address] [id number] [place] [address]- 5672 Apr, [facility] [place] [facility] [address] [id number] [place] [address]- 8870 Apr, [facility] [place] [facility] [address] [id number] [place] [address]- 1841 Apr, [facility] [place] [facility] [address] [id number] [place] [address]- 6149 Apr, [facility] [place] [facility] [address] [id number] [place] [address]- 2278 Apr, [facility] [place] [facility] [address] [id number] [place] [address]- 9823 Apr, [facility] [place] [facility] [address] [id number] [place] [address]- 0346 Apr, [facility] [place] [facility] [address] [id number] [place] [address]- 0872 Apr, [facility] [place] [facility] [address] [id number] [place] [address]- 5284 Mar, [facility] [place] [facility] [address] [id number] [place] [address]- 3611 Mar, [facility] [place] [facility] [address] [id number] [place] [address]- 1213 Mar, [facility] [place] [facility] [address] [id number] [place] [address]- 7062 Mar, [facility] [place] [facility] [address] [id number] [place] [address]- 6543 Mar, [facility] [place] [facility] [address] [id number] [place] [address]- 1458 Mar, [facility] [place] [facility] [address] [id number] [place] [address]- 7837 15 Mar, 2014 [facility] [place] [facility] [address] [id number] [place] [address]- 0463 15 Mar, 2014 [facility] [place] [facility] [address] [id number] [address]- 3321 15 Mar, 2014 [facility] [place] [facility] [address] [id number] [place] [address]- 9026 15 Mar, 2014 [facility] [place] [facility] [address] [id number] [place] [address]- 0434 15 Mar, 2014 [facility] [place] [facility] [address] [id number] [place] [address]- 8063 15 Mar, 2014 [facility] [place] [facility] [address] [id number] [place] [address] Mar, [facility] [place] [facility] [address] [id number] [place] [address] Mar, [facility] [place] [facility] [address] [id number] [place] [address] Mar, [facility] [place] [facility] [address] [id number] [place] [address] Mar, [facility] [place] [facility] [address] [id number] [place] [address] Mar, [facility] [place] [facility] [address] [id number] [place] [address] Mar, [facility] [place] [facility] [address] [id number] [place] [address] Feb, [facility] [place] [facility] [address] [id number] [place] [address] Feb, [facility] [place] [facility] [address] [id number] [place] [address] Feb, [facility] [place] [facility] [address] [id number] [place] [address] Feb, [facility] [place] [facility] [address] [facility] [id number] [place] [address] Feb, [facility] [place] [facility] [address] [id number] [place] [address] Feb, [facility] [place] [facility] [address] [id number] [place] [address]- [address] Feb, [facility] [place] [facility] [address] [id number] [place] [address] Feb, [facility] [place] [facility] [address] [id number] [place] [address] Jan, [facility] [place] [facility] [address] [id number] [place] [address] Jan, [facility] [place] [facility] [address] [id number] [place] [address]- [address] Jan, [facility] [place] [facility] [address] [id number] [place] [address] Jan, [facility] [place] [facility] [address] [id number] [place] [address]- [address] Jan, [facility] [place] [facility] [address] [id number] [place] [address]- [address] Jan, [facility] [place] [facility] [address] [id number] [place] [address] Jan, [facility] [place] [facility] [address] [id number] [place] [address]- [address] Jan, [facility] [place] [facility] [address] [id number] [place] [address]- [address] Jan, [facility] [place] [facility] [address] [id number] [place] [address] Jan, [facility] [place] [facility] [address] [id number] [place] [address]- [address] Jan, [facility] [place] [facility] [address] [id number] [place] [address]- [address] Jan, [facility] [place] [facility] [address] [id number] [place] [address] Jan, [facility] [place] [facility] [address] [id number] [place] [address] Jan, [facility] [place] [facility] [address] [id number] [place] [address] Jan, [facility] [place] [facility] [address] [id number] [place] [address] 16 Jan, 2014 [facility] [place] [facility] [address] [id number] [place] [address] Jan, [facility] [place] [facility] [address] [id number] [place] [address] 13 Jan, 2014 [facility] [place] [facility] [address] [id number] [place] [address] 29 Sep, 2013 [facility] [place] [facility] [address] [id number] [place] [address] 29 Dec, 2013 [facility] [place] [facility] [address] [id number] [place] [address]46 26 Dec, 2013 [facility] [place] [facility] [address] [id number] [place] [address] 26 Dec, 2013 [facility] [place] [facility] [address] [id number] [place] [address] 26 Dec, 2013 [facility] [place] [facility] [address] [id number] [place] [address]- [address] 26 Dec, 2013 [facility] [place] [facility] [address] [id number] [place] [address]- [address] 23 Dec, 2013 [facility] [place] [facility] [address] [id number] [place] [address]- [address] 23 Dec, 2013 [facility] [place] [facility] [address] [id number] [place] [address] 22 Dec, 2013 [facility] [place] [facility] [address] [id number] [place] [address] 2547 22 Dec, 2013 [facility] [place] [facility] [address] [id number] [place] [address] 16 Dec, 2013 [facility] [place] [facility] [address] [address] [id number] [address] 16 Dec, 2013 [facility] [place] [facility] [address] [id number] [place] [address] 2546 15 Dec, 2013 [facility] [place] [facility] [address] [id number] [place] [address] 2546 15 Dec, 2013 [facility] [place] [facility] [address] [id number] [place] [address] 2541 09 Dec, 2013 [facility] [place] [facility] [address] [id number] [place] [address]- 6723 Dec, [facility] [place] [facility] [address] [id number] [place] [address]- 3709 Dec, [facility] [place] [facility] [address] [id number] [place] [address]- 9651 Nov, [facility] [place] [facility] [address] [id number] [place] [address]- 7247 Nov, [facility] [place] [facility] [address] [id number] [place] [address]- 2816 Nov, [facility] [place] [facility] [address] [id number] [place] [address]- 8605 Nov, [facility] [place] [facility] [address] [id number] [place] [address]- 9430 Nov, [facility] [place] [facility] [address] [id number] [place] [address]- 4347 Nov, [facility] [place] [facility] [address] [id number] [place] [address]- 7297 Nov, [facility] [place] [facility] [address] [id number] [place] [address]- 0769 Nov, [facility] [place] [facility] [address] [id number] [place] [address]- 9425 Nov, [facility] [place] [facility] [address] [id number] [place] [address]- 5738 Nov, [facility] [place] [facility] [address] [id number] [place] [address]- 4424 Nov, [facility] [place] [facility] [address] [id number] [place] [address]- 3803 Nov, [facility] [place] [facility] [address] [id number] [place] [address]- 9139 Nov, [facility] [place] [facility] [address] [id number] [place] [address]- 4187 Nov, [facility] [place] [facility] [address] [id number] [place] [address]- 8924 Nov, [facility] [place] [facility] [address] [id number] [place] [address]- 7136 Nov, [facility] [place] [facility] [address] [id number] [place] [address]- 7440 Nov, [facility] [place] [facility] [address] [id number] [place] [address]- 2948 Nov, [facility] [place] [facility] [address] [id number] [place] [address]- 6499 Nov, [facility] [place] [facility] [address] [id number] [place] [address]- 9801 Nov, [facility] [place] [facility] [address] [id number] [place] [address]- 8605 Nov, [facility] [place] [facility] [address] [id number] [place] [address]- 6568 Oct, [facility] [place] [facility] [address] [id number] [place] [address]- 4211 Oct, [facility] [place] [facility] [address] [id number] [place] [address]- 2333 Oct, [facility] [place] [facility] [address] [id number] [place] [address]- 3066 Oct, [facility] [place] [facility] [address] [id number] [place] [address]- 1110 Oct, [facility] [place] [facility] [address] [id number] [place] [address]- 8658 Oct, [facility] [place] [facility] [address] [id number] [place] [address]- 8496 Oct, [facility] [place] [facility] [address] [id number] [place] [address]- 2505 Oct, [facility] [place] [facility] [address] [id number] [place] [address]- 4693 15 Oct, 2013 [facility] [place] [facility] [address] [id number] [place] [address]- 1606 14 Oct, 2013 [facility] [place] [facility] [address] [id number] [place] [address]- 8745 Oct, [facility] [place] [facility] [address] [id number] [place] [address]- 3269 Oct, [facility] [place] [facility] [address] [id number] [place] [address]- 7006 Oct, [facility] [place] [facility] [address] [id number] [place] [address]- 8647 Oct, [facility] [place] [facility] [address] [id number] [place] [address]- 0274 Oct, [facility] [place] [facility] [address] [id number] [place] [address]- 8304 Sep, [facility] [place] [facility] [address] [id number] [place] [address]- 7001 Sep, [facility] [place] [facility] [address] [id number] [place] [address]- 7123 Sep, [facility] [place] [facility] [address] [id number] [place] [address]- 6496 Sep, [facility] [place] [facility] [address] [id number] [place] [address]- 6558 Sep, [facility] [place] [facility] [address] [id number] [place] [address]- 8497 Sep, [facility] [place] [facility] [address] [id number] [place] [address]- 8628 Sep, [facility] [place] [facility] [address] [id number] [place] [address]- 8232 Sep, [facility] [place] [facility] [address] [id number] [place] [address]- 5622 17 Sep, 2013 [facility] [place] [facility] [address] [id number] [place] [address]- 3536 Sep, [facility] [place] [facility] [address] [id number] [place] [address]- 1041 Sep, [facility] [place] [facility] [address] [id number] [place] [address]- 2026 Sep, [facility] [place] [facility] [address] [id number] [place] [address]- 0956 Sep, [facility] [place] [facility] [address] [id number] [place] [address]- 5122 Sep, [facility] [place] [facility] [address] [id number] [place] [address]- 7504 Sep, [facility] [place] [facility] [address] [id number] [place] [address]- 8031 Sep, [facility] [place] [facility] [address] [id number] [place] [address]- 3489 Sep, [facility] [place] [facility] [address] [id number] [place] [address]- 2451 Sep, [facility] [place] [facility] [address] [id number] [place] [address]- 2969 Sep, [facility] [place] [facility] [address] [id number] [place] [address]- 8000 Sep, [facility] [place] [facility] [address] [id number] [place] [address]- 8601 Sep, [facility] [place] [facility] [address] [id number] [place] [address]- 2573 Sep, [facility] [place] [facility] [address] [id number] [place] [address]- 7281 August, [facility] [place] [facility] [address] [id number] [place] [address]- 3461 August, [facility] [place] [facility] [address] [id number] [place] [address]- 1716 August, [facility] [address] [id number] [place] [address]- 7285 August, [facility] [place] [facility] [address] [id number] [place] [address]- 9794 August, [facility] [place] [facility] [address] [id number] [place] [address]- 7473 August, [facility] [place] [facility] [address] [id number] [place] [address]- 2470 August, [facility] [place] [facility] [address] [id number] [place] [address]- 8487 August, [facility] [place] [facility] [address] [id number] [place] [address]- 5725 August, [facility] [place] [facility] [address] [id number] [place] [address]- 1600 August, [facility] [place] [facility] [address] [id number] [place] [address]- 3880 August, [facility] [place] [facility] [address] [id number] [place] [address]- 5563 August, [facility] [place] [facility] [address] [id number] [place] [address]- 6670 August, [facility] [place] [facility] [address] [id number] [place] [address]- 6706 August, [facility] [place] [facility] [address] [id number] [place] [address]- 5123 August, [facility] [place] [facility] [address] [id number] [place] [address]- 5206 August, [facility] [place] [facility] [address] [id number] [place] [address]- 7289 August, [facility] [place] [facility] [address] [id number] [place] [address]- 1889 August, [facility] [place] [facility] [address] [id number] [place] [address]- 2825 Jul, [facility] [place] [facility] [address] [id number] [place] [address]- 8395 Jul, [facility] [place] [facility] [address] [id number] [place] [address]- 4974 Jul, [facility] [place] [facility] [address] [id number] [place] [address]- 9933 Jul, [facility] [place] [facility] [address] [id number] [place] [address]- 6413 Jul, [facility] [place] [facility] [address] [id number] [place] [address]- 4134 Jul, [facility] [place] [facility] [address] [id number] [place] [address]- 0066 Jul, [facility] [place] [facility] [address] [id number] [place] [address]- 4207 Jul, [facility] [place] [facility] [address] [id number] [place] [address]- 5425 Jul, [facility] [place] [facility] [address] [id number] [place] [address]- 8009 Jul, [facility] [place] [facility] [address] [id number] [place] [address]- 5047 Jul, [facility] [place] [facility] [address] [id number] [place] [address]- 6930 Jul, [facility] [place] [facility] [address] [id number] [place] [address]- 1062 Jul, [facility] [place] [facility] [address] [id number] [place] [address]- 4915 Jul, [facility] [place] [facility] [address] [id number] [place] [address]- 4790 Jul, [facility] [place] [facility] [address] [id number] [place] [address]- 6280 Jul, [facility] [place] [facility] [address] [id number] [place] [address]- 5912 17 Jul, 2013 [facility] [place] [facility] [address] [id number] [place] [address]- 3914 16 Jul, 2013 [facility] [place] [facility] [address] [id number] [place] [address]- 0366 16 Jul, 2013 [facility] [place] [facility] [address] [id number] [place] [address]- 5530 15 Jul, 2013 [facility] [place] [facility] [address] [id number] [place] [address]- 2966 15 Jul, 2013 [facility] [place] [facility] [address] [id number] [place] [address]- 1264 14 Jul, 2013 [facility] [place] [facility] [address] [id number] [place] [address]- 5792 Jul, [facility] [place] [facility] [address] [id number] [place] [address]- 5055 Jul, [facility] [place] [facility] [address] [id number] [place] [address]- 3961 Jul, [facility] [place] [facility] [address] [id number] [place] [address]- 9791 Jul, [facility] [place] [facility] [address] [id number] [place] [address]- 8740 Jul, [facility] [place] [facility] [address] [id number] [place] [address]- 2534 Jul, [facility] [place] [facility] [address] [id number] [place] [address]- 9459 Jul, [facility] [place] [facility] [address] [id number] [place] [address]- 1064 Jun, [facility] [place] [facility] [address] [id number] [place] [address]- 2391 Jun, [facility] [place] [facility] [address] [id number] [place] [address]- 8244 17 Jun, 2013 [facility] [place] [facility] [address] [id number] [place] [address]- 4162 17 Jun, 2013 [facility] [place] [facility] [address] [id number] [place] [address]- 7599 Jun, [facility] [place] [facility] [address] [id number] [place] [address]- 8774 Jun, [facility] [place] [facility] [address] [id number] [place] [address]- 9723 Jun, [facility] [place] [facility] [address] [id number] [place] [address]- 7080 Jun, [facility] [place] [facility] [address] [id number] [place] [address]- 4805 Jun, [facility] [place] [facility] [address] [facility] [id number] [place] [address]- 7459 Jun, [facility] [place] [facility] [address] [id number] [place] [address]- 7127 Jun, [facility] [place] [facility] [address] [id number] [place] [address]- 9916 Jun, [facility] [place] [facility] [address] [facility] [id number] [place] [address]- 6889 May, [facility] [place] [facility] [address] [id number] [place] [address]- 8289 May, [facility] [place] [facility] [address] [id number] [place] [address]- 4818 May, [facility] [place] [facility] [address] [id number] [place] [address]- 5303 May, [facility] [place] [facility] [address] [id number] [place] [address]- 4698 May, [facility] [place] [facility] [address] [facility] [id number] [place] [address]- 6154 May, [facility] [place] [facility] [address] [id number] [place] [address]- 0577 May, [facility] [place] [facility] [address] [id number] [place] [address]- 3417 May, [facility] [place] [facility] [address] [id number] [place] [address]- 6946 May, [facility] [place] [facility] [address] [id number] [place] [address]- 3215 May, [facility] [place] [facility] [address] [id number] [place] [address]- 1220 Apr, [facility] [place] [facility] [address] [id number] [place] [address]- 4278 Apr, [facility] [place] [facility] [address] [id number] [place] [address]- 7537 Apr, [facility] [place] [facility] [address] [id number] [place] [address]- 7843 Apr, [facility] [place] [facility] [address] [id number] [place] [address]- 0712 Apr, [facility] [place] [facility] [address] [id number] [place] [address]- 3411 Apr, [facility] [place] [facility] [address] [id number] [place] [address]- 0629 Apr, [facility] [place] [facility] [address] [id number] [place] [address]- 6586 Apr, [facility] [place] [facility] [address] [id number] [place] [address]- 7470 Apr, [facility] [place] [facility] [address] [id number] [place] [address]- 9192 Apr, [facility] [place] [facility] [address] [id number] [place] [address]- 2768 Mar, [facility] [place] [facility] [address] [id number] [place] [address]- 7993 Mar, [facility] [place] [facility] [address] [id number] [place] [address]- 6499 Mar, [facility] [place] [facility] [address] [id number] [place] [address]- 7492 Mar, [facility] [place] [facility] [address] [id number] [place] [address]- 1936 Mar, [facility] [place] [facility] [address] [id number] [place] [address]- 3659 Mar, [facility] [place] [facility] [address] [id number] [place] [address]- 9479 Feb, [facility] [place] [facility] [address] [id number] [place] [address]- 7475 Feb, [facility] [place] [facility] [address] [facility] [id number] [place] [address]- 0843 Feb, [facility] [place] [facility] [address] [id number] [place] [address]- 9851 Jan, [facility] [place] [facility] [address] [facility] [id number] [place] [address]- 4855 30 Jan, 2013 [facility] [place] [facility] [address] [facility] [id number] [place] [address]- 9236 Jan, [facility] [place] [facility] [address] [id number] [address]- 7066 28 Jan, 2013 [facility] [place] [facility] [address] [id number] [place] [address]- 5467 15 Jan, 2013 [facility] [place] [facility] [address] [id number] [place] [address]- 6828 15 Jan, 2013 [facility] [place] [facility] [address] [facility] [id number] [place] [address]- 4736 Jan, [facility] [place] [facility] [address] [facility] [id number] [place] [address]- 3405 11 Jan, 2013 [facility] [place] [facility] [address] [id number] [place] [address]- 1209 Jan, [facility] [place] [facility] [address] [id number] [place] [address]- 9288 Jan, [facility] [place] [facility] [address] [id number] [place] [address]- 9406 30 Dec, 2012 [facility] [place] [facility] [address] [id number] [place] [address]- 9436 25 Dec, 2012 [facility] [place] [facility] [address] [id number] [place] [address]- 1434 11 Dec, 2012 [facility] [place] [facility] [address] [id number] [place] [address]- 9034 Dec, 2012 [facility] [place] [facility] [address] [id number] [place] [address]- 3197 05 Dec, 2012 [facility] [place] [facility] [address] [id number] [place] [address]- 9590 Dec, 2012 [facility] [place] [facility] [address] [id number] [place] [address]- 7114 Nov, [facility] [place] [facility] [address] [id number] [place] [address]- 9797 Nov, [facility] [place] [facility] [address] [id number] [place] [address]- 2456 Nov, [facility] [place] [facility] [address] [id number] [place] [address]- 4442 Nov, [facility] [place] [facility] [address] [id number] [place] [address] 2542 Nov, [facility] [place] [facility] [address] [id number] [place] [address]- 6466 Nov, [facility] [place] [facility] [address] [id number] [place] [address]- 2547 Nov, [facility] [place] [facility] [address] [id number] [place] [address]- 0424 Nov, [facility] [address] [id number] [place] [address]- 5919 Nov, [facility] [place] [facility] [address] [id number] [place] [address]- 1815 Nov, [facility] [place] [facility] [address] [id number] [place] [address]- 6023 Nov, [facility] [place] [facility] [address] [id number] [place] [address]- 2761 Nov, [facility] [place] [facility] [address] [id number] [place] [address]- 0777 Oct, [facility] [place] [facility] [address] [id number] [place] [address]- 6520 Oct, [facility] [place] [facility] [address] [id number] [place] [address]- 5008 Oct, [facility] [place] [facility] [address] [id number] [place] [address]- 7447 Sep, [facility] [place] [facility] [address] [id number] [place] [address]- 4225 Sep, [facility] [place] [facility] [address] [id number] [place] [address]- 5464 Sep, [facility] [place] [facility] [address] [id number] [place] [address]- 1157 August, [facility] [place] [facility] [address] [id number] [place] [address]- 9115 August, [facility] [place] [facility] [address] [id number] [place] [address]- 9002 August, [facility] [place] [facility] [address] [id number] [place] [address]- 0990 August, [facility] [place] [facility] [address] [id number] [place] [address]- 0665 August, [facility] [place] [facility] [address] [id number] [place] [address]- 0254 August, [facility] [address] [id number] [place] [address]- 5499 30 Jul, 2012 [facility] [place] [facility] [address] [id number] [place] [address] 15 Jul, 2012 [facility] [address] [id number] [place] [address] Jul, [facility] [place] [facility] [address] [id number] [place] [address] Jul, [facility] [address] [id number] [place] [address] Jul, [facility] [place] [facility] [address] [id number] [place] [address] Jul, [facility] [address] [id number] [place] [address] 2012 [facility] [address] [id number] [place] [address] 20 Jun, 2012 [facility] [address] [id number] [place] [address] 18 Jun, 2012 [facility] [address] [id number] [place] [address] 14 Jun, 2012 [facility] [place] [facility] [address] [id number] [place] [address] 04 Jun, 2012 [facility] [place] [facility] [address] [id number] [place] [address] May, [facility] [place] [facility] [address] [id number] [place] [address] 12 May, 2012 [facility] [place] [facility] [address] [id number] [place] [address] May, [facility] [place] [facility] [address] [id number] [place] [address] 08 May, 2012 [facility] [address] [id number] [place] [address] Apr, [facility] [place] [facility] [address] [id number] [place] [address] Apr, [facility] [place] [facility] [address] [id number] [place] [address] Apr, [facility] [place] [facility] [address] [id number] [place] [address] Mar, [facility] [place] [facility] [address] [id number] [place] [address] Mar, [facility] [place] [facility] [address] [id number] [place] [address] Mar, [facility] [place] [facility] [address] [id number] [place] [address] Mar, [facility] [place] [facility] [address] [id number] [place] [address] Mar, [facility] [place] [facility] [address] [id number] [place] [address]48 Mar, [facility] [place] [facility] [address] [id number] [place] [address]- [address] Mar, [facility] [place] [facility] [address] [id number] [place] [address] Mar, [facility] [place] [facility] [address] [id number] [place] [address] Feb, [facility] [place] [facility] [address] [id number] [place] [address] Feb, [facility] [place] [facility] [address] [id number] [place] [address] 8581 Feb, [facility] [place] [facility] [address] [id number] [place] [address]77 Feb, [facility] [place] [facility] [address] [id number] [place] [address] Feb, [facility] [place] [facility] [address] [id number] [place] [address]- [address] Feb, [facility] [place] [facility] [address] [id number] [place] [address]287 Feb, [facility] [place] [facility] [address] [facility] [id number] [place] [address] Feb, [facility] [place] [facility] [address] [id number] [place] [address] Feb, [facility] [place] [facility] [address] [id number] [place] [address] Feb, [facility] [place] [facility] [address] [facility] [id number] [place] [address]- 3468 Feb, [facility] [place] [facility] [address] [id number] [place] [address] Feb, [facility] [place] [facility] [address] [facility] [id number] [place] [address] 29[address] Feb, [facility] [place] [facility] [address] [facility] [id number] [place] [address] 98[address] Feb, [facility] [place] [facility] [address] [facility] [id number] [place] [address] Feb, [facility] [place] [facility] [address] [facility] [id number] [place] [address] Feb, [facility] [place] [facility] [address] [facility] [id number] [place] [address]- [address] Feb, [facility] [place] [facility] [address] [facility] [id number] [place] [address] Feb, [facility] [place] [facility] [address] [facility] [id number] [place] [address] 2005 Jan, [facility] [place] [facility] [address] [facility] [id number] [place] [address] Jan, [facility] [place] [facility] [address] [id number] [place] [address]- 8036 22 Jan, 2011 [facility] [place] [facility] [address] [id number] [place] [address]- 4601 20 Jan, 2012 [facility] [place] [facility] [address] [id number] [place] [address]- 2695 20 Jan, 2012 [facility] [place] [facility] [address] [id number] [place] [address]- 2027 19 Jan, 2012 [facility] [place] [facility] [address] [id number] [place] [address]- 7570 18 Jan, 2012 [facility] [place] [facility] [address] [id number] [place] [address]- 5636 18 Jan, 2012 [facility] [place] [facility] [address] [id number] [place] [address]- 1806 15 Jan, 2012 [facility] [place] [facility] [address] [id number] [place] [address]- 2506 15 Jan, 2012 [facility] [place] [facility] [address] [id number] [place] [address]- 7098 11 Jan, 2012 [facility] [place] [facility] [address] [id number] [place] [address]- [address]64 11 Jan, 2012 [facility] [place] [facility] [address] [facility] [id number] [place] [address]- 4579 10 Jan, 2012 [facility] [place] [facility] [address] [id number] [place] [address] 09 Jan, 2012 [facility] [place] [facility] [address] [id number] [place] [address]- 6581 02 Jan, 2012 [facility] [place] [facility] [address] [id number] [place] [address]- [address]686 29 Dec, 2011 [facility] [place] [facility] [address] [id number] [place] [address]- 8396 28 Dec, 2011 [facility] [place] [facility] [address] [id number] [place] [address]- 9657 Dec, [facility] [place] [facility] [address] [id number] [place] [address]- [address]127 Dec, [facility] [place] [facility] [address] [id number] [place] [address]- [address]127 Nov, [facility] [place] [facility] [address] [id number] [place] [address]- [address]309 Nov, [facility] [place] [facility] [address] [id number] [place] [address]- 1556 Nov, [facility] [place] [facility] [address] [id number] [place] [address]- 9045 Nov, [facility] [place] [facility] [address] [id number] [place] [address]- 2759 Nov, [facility] [place] [facility] [address] [id number] [place] [address] Nov, [facility] [place] [facility] [address] [id number] [place] [address] Nov, [facility] [place] [facility] [address] [id number] [place] [address] Nov, [facility] [place] [facility] [address] [id number] [place] [address] Nov, [facility] [place] [facility] [address] [id number] [place] [address] Nov, [facility] [place] [facility] [address] [id number] [place] [address]656 Nov, [facility] [place] [facility] [address] [id number] [place] [address] Oct, [facility] [place] [facility] [address] [id number] [place] [address] Oct, [facility] [place] [facility] [address] [id number] [place] [address]27 Oct, [facility] [place] [facility] [address] [id number] [place] [address] Oct, [facility] [place] [facility] [address] [id number] [place] [address] Oct, [facility] [place] [facility] [address] [id number] [place] [address] Oct, [facility] [place] [facility] [address] [id number] [place] [address] Oct, [facility] [place] [facility] [address] [id number] [place] [address]112 Oct, [facility] [place] [facility] [address] [id number] [place] [address] Sep, [facility] [place] [facility] [address] [id number] [place] [address]- 45[address] Sep, [facility] [place] [facility] [address] [id number] [place] [address] 5814 Sep, [facility] [place] [facility] [address] [id number] [place] [address]- 2499 Sep, [facility] [place] [facility] [address] [id number] [place] [address]- [address] Sep, [facility] [place] [facility] [address] [id number] [place] [address] Sep, [facility] [place] [facility] [address] [id number] [place] [address]- [address]482 Sep, [facility] [place] [facility] [address] [id number] [place] [address]26 August, [facility] [place] [facility] [address] [id number] [place] [address]- 1702 August, [facility] [place] [facility] [address] [id number] [place] [address]- 4246 August, [facility] [place] [facility] [address] [id number] [place] [address] 1400 August, [facility] [place] [facility] [address] [id number] [place] [address] 1369 August, [facility] [address] [id number] [place] [address]70 August, [facility] [place] [facility] [address] [id number] [place] [address] August, [facility] [address] [id number] [place] [address] 1797 August, [facility] [address] [id number] [place] [address] Jul, [facility] [place] [facility] [address] [id number] [place] [address]- [address]80 17 Jul, 2011 [facility] [address] [id number] [place] [address]- 9469 Jul, [facility] [address] [id number] [place] [address]278 Jul, [facility] [address] [id number] [place] [address] 7693 Jul, [facility] [address] [id number] [place] [address]- 1557 28 Jun, 2011 [facility] [place] [facility] [address] [id number] [place] [address]- [address] 2011 [facility] [place] [facility] [address] [id number] [place] [address] 20 Jun, 2011 [facility] [place] [facility] [address] [id number] [place] [address] 19 Jun, 2011 [facility] [place] [facility] [address] [id number] [place] [address]- 1401 12 Jun, 2011 [facility] [place] [facility] [address] [id number] [place] [address] Jun, [facility] [place] [facility] [address] [id number] [place] [address] 5016 Jun, [facility] [address] [id number] [place] [address]- [address]130 Jun, [facility] [address] [id number] [place] [address]- 0966 Jun, [facility] [address] [id number] [place] [address]- 8396 May, [facility] [address] [id number] [place] [address] May, [facility] [address] [id number] [place] [address]- 7056 May, [facility] [address] [id number] [place] [address]- 4576 May, [facility] [address] [id number] [place] [address]- 4776 May, [facility] [address] [id number] [place] [address]- 1558 May, [facility] [address] [id number] [place] [address]- 57[address] May, [facility] [address] [facility] [id number] [place] [address]807 May, [facility] [address] [facility] [id number] [place] [address]- 8848 Apr, [facility] [place] [facility] [address] [id number] [place] [address]- 7310 Apr, [facility] [place] [facility] [address] [id number] [place] [address]391 Apr, [facility] [place] [facility] [address] [id number] [place] [address]- 7376 Apr, [facility] [address] [facility] [id number] [place] [address] Apr, [facility] [address] [id number] [place] [address]- [address]808 05 Apr, 2011 [facility] [address] [id number] [place] [address]- 8518 Mar, [facility] [place] [facility] [address] [id number] [place] [address]- 1203 Mar, [facility] [place] [facility] [address] [id number] [place] [address]- 5336 Mar, [facility] [address] [id number] [place] [address]- 5865 Mar, [facility] [place] [facility] [address] [id number] [place] [address]- 4622 15 Mar, 2011 [facility] [address] [id number] [place] [address]- 9222 Mar, [facility] [place] [facility] [address] [id number] [place] [address]- 7497 Mar, [facility] [place] [facility] [address] [id number] [place] [address]- 6767 Mar, [facility] [place] [facility] [address] [id number] [place] [address]- 6992 Mar, [facility] [place] [facility] [address] [id number] [place] [address]- 4521 Mar, [facility] [place] [facility] [address] [id number] [place] [address]- 8698 Mar, [facility] [place] [facility] [address] [id number] [place] [address]- 2312 Mar, [facility] [place] [facility] [address] [id number] [place] [address]- 1607 Mar, [facility] [place] [facility] [address] [id number] [place] [address]- 9675 Feb, [facility] [place] [facility] [address] [id number] [place] [address]- 9136 Feb, [facility] [place] [facility] [address] [id number] [place] [address] 17 Feb, 2011 [facility] [place] [facility] [address] [id number] [place] [address]- 2324 Feb, [facility] [place] [facility] [address] [id number] [place] [address]- 7554 Feb, [facility] [place] [facility] [address] [id number] [place] [address]- 1683 Feb, [facility] [place] [facility] [address] [id number] [place] [address]- 8284 Feb, [facility] [place] [facility] [address] [id number] [place] [address]- 6392 Jan, [facility] [place] [facility] [address] [id number] [place] [address]- 5233 Jan, [facility] [place] [facility] [address] [id number] [place] [address]- 3134 Jan, [facility] [place] [facility] [address] [id number] [place] [address]- 8778 Nov, [facility] [place] [facility] [address] [id number] [place] [address]- 2637 Mar, [facility] [place] [facility] [address] [id number] [place] [address]- 7367 Mar, [facility] [place] [facility] [address] [id number] [place] [address]- 0479 20 Mar, 2010 [facility] [place] [facility] [address] [id number] [place] [address]- 0943 13 Mar, 2010 [facility] [place] [facility] [address] [id number] [place] [address] 07 Mar, 2010 [facility] [place] [facility] [address] [id number] [place] [address]- 3317 30 Feb, 2010 [facility] [place] [facility] [address] [facility] [id number] [place] [address]- 9389 30 Feb, 2010 [facility] [address] [facility] [id number] [place] [address]- 5094 24 Feb, 2010 [facility] [address] [facility] [id number] [place] [address]- 5956 19 Feb, 2010 [facility] [address] [facility] [id number] [place] [address]- 0901 19 Feb, 2010 [facility] [address] [facility] [id number] [place] [address]- 3955 15 Feb, 2010 IMMUNIZATIONS No Known Immunizations [...]
--- OUTSIDE RECORDS SUMMARY | 2017-12-22 03:53 | XMS REPORT ---
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 2014 [facility] [place] [facility] [address] [id number] [place] [address]- 0627 18 Jun, 2014 [facility] [place] [facility] [address] [id number] [place] [address]- 7577 18 Jun, 2014 [facility] [place] [facility] [address] [id number] [place] [address]- 7500 18 Jun, 2014 [facility] [place] [facility] [address] [id number] [place] [address]- 9902 18 Jun, 2014 [facility] [place] [facility] [address] [id number] [place] [address]- 4257 17 Jun, 2014 [facility] [place] [facility] [address] [id number] [place] [address]- 0996 17 Jun, 2014 [facility] [place] [facility] [address] [id number] [place] [address]- 0102 17 Jun, 2014 [facility] [place] [facility] [address] [id number] [place] [address]- 3200 17 Jun, 2014 [facility] [place] [facility] [address] [id number] [place] [address]- 2623 13 Jun, 2014 [facility] [place] [facility] [address] [id number] [place] [address]- 2741 13 Jun, 2014 [facility] [place] [facility] [address] [id number] [place] [address]- 4023 12 Jun, 2014 [facility] [place] [facility] [address] [id number] [place] [address]- 1835 12 Jun, 2014 [facility] [place] [facility] [address] [id number] [place] [address]- 2444 10 Jun, 2014 [facility] [place] [facility] [address] [id number] [place] [address]- 7773 10 Jun, 2014 [facility] [place] [facility] [address] [id number] [place] [address]- 8016 10 Jun, 2014 [facility] [place] [facility] [address] [id number] [place] [address]- 1092 10 Jun, 2014 [facility] [place] [facility] [address] [id number] [place] [address]- 3587 06 Jun, 2014 [facility] [place] [facility] [address] [id number] [place] [address]- 5888 06 Jun, 2014 [facility] [place] [facility] [address] [id number] [place] [address]- 2062 Jun, 2014 [facility] [place] [facility] [address] [id number] [place] [address]- 5972 Jun, [facility] [place] [facility] [address] [id number] [place] [address]- 1335 Jun, [facility] [place] [facility] [address] [id number] [place] [address]- 1687 Jun, [facility] [place] [facility] [address] [id number] [place] [address]- 3939 May, 2014 [facility] [place] [facility] [address] [id number] [place] [address]- 4698 May, 2014 [facility] [place] [facility] [address] [id number] [place] [address]- 0203 May, 2014 [facility] [place] [facility] [address] [id number] [place] [address]- 8450 May, 2014 [facility] [place] [facility] [address] [id number] [place] [address]- 6208 May, 2014 [facility] [place] [facility] [address] [id number] [place] [address]- 5401 May, 2014 [facility] [place] [facility] [address] [id number] [place] [address]- 0085 May, 2014 [facility] [place] [facility] [address] [id number] [place] [address]- 1305 May, 2014 [facility] [place] [facility] [address] [id number] [place] [address]- 6601 May, 2014 [facility] [place] [facility] [address] [id number] [place] [address]- 5328 May, 2014 [facility] [place] [facility] [address] [id number] [place] [address]- 2453 May, 2014 [facility] [place] [facility] [address] [facility] [id number] [place] [address]- 6109 May, 2014 [facility] [place] [facility] [address] [id number] [place] [address]- 8922 05 May, 2014 [facility] [place] [facility] [address] [id number] [place] [address]- 6939 May, [facility] [place] [facility] [address] [id number] [place] [address]- 5206 May, [facility] [place] [facility] [address] [id number] [place] [address]- 5955 May, [facility] [place] [facility] [address] [id number] [place] [address]- 1636 Apr, [facility] [place] [facility] [address] [id number] [place] [address]- 9690 Apr, [facility] [place] [facility] [address] [id number] [place] [address]- 4141 Apr, [facility] [place] [facility] [address] [id number] [place] [address]- 2061 Apr, [facility] [place] [facility] [address] [id number] [place] [address]- 7438 Apr, [facility] [place] [facility] [address] [id number] [place] [address]- 0405 Apr, [facility] [place] [facility] [address] [id number] [place] [address]- 1644 Apr, [facility] [place] [facility] [address] [id number] [place] [address]- 7202 Apr, [facility] [place] [facility] [address] [id number] [place] [address]- 8992 Apr, [facility] [place] [facility] [address] [id number] [place] [address]- 7413 Apr, [facility] [place] [facility] [address] [id number] [place] [address]- 8320 Apr, [facility] [place] [facility] [address] [id number] [place] [address]- 8459 Apr, [facility] [place] [facility] [address] [id number] [place] [address]- 4614 Apr, [facility] [place] [facility] [address] [id number] [place] [address]- 1056 Apr, [facility] [place] [facility] [address] [id number] [place] [address]- 4479 Apr, [facility] [place] [facility] [address] [id number] [place] [address]- 2029 Mar, [facility] [place] [facility] [address] [id number] [place] [address]- 0496 Mar, [facility] [place] [facility] [address] [id number] [place] [address]- 3750 Mar, [facility] [place] [facility] [address] [id number] [place] [address]- 3063 Mar, [facility] [place] [facility] [address] [id number] [place] [address]- 7452 Mar, [facility] [place] [facility] [address] [id number] [place] [address]- 9554 Mar, [facility] [place] [facility] [address] [id number] [place] [address]- 8395 15 Mar, 2014 [facility] [place] [facility] [address] [id number] [place] [address]- 7399 15 Mar, 2014 [facility] [place] [facility] [address] [id number] [address]- 6014 15 Mar, 2014 [facility] [place] [facility] [address] [id number] [place] [address]- 7716 15 Mar, 2014 [facility] [place] [facility] [address] [id number] [place] [address]- 3821 15 Mar, 2014 [facility] [place] [facility] [address] [id number] [place] [address]- 1323 15 Mar, 2014 [facility] [place] [facility] [address] [id number] [place] [address]- 1888 Mar, [facility] [place] [facility] [address] [id number] [place] [address]- 0950 Mar, [facility] [place] [facility] [address] [id number] [place] [address]- 1271 Mar, [facility] [place] [facility] [address] [id number] [place] [address]- 8799 Mar, [facility] [place] [facility] [address] [id number] [place] [address]- 8044 Mar, [facility] [place] [facility] [address] [id number] [place] [address]- 1006 Mar, [facility] [place] [facility] [address] [id number] [place] [address]- 8756 Feb, [facility] [place] [facility] [address] [id number] [place] [address]- 8205 Feb, [facility] [place] [facility] [address] [id number] [place] [address]- 1023 Feb, [facility] [place] [facility] [address] [id number] [place] [address]- 5713 Feb, [facility] [place] [facility] [address] [facility] [id number] [place] [address]- 0635 Feb, [facility] [place] [facility] [address] [id number] [place] [address]- 3041 Feb, [facility] [place] [facility] [address] [id number] [place] [address]- 4488 Feb, [facility] [place] [facility] [address] [id number] [place] [address] Feb, [facility] [place] [facility] [address] [id number] [place] [address] Jan, [facility] [place] [facility] [address] [id number] [place] [address] Jan, [facility] [place] [facility] [address] [id number] [place] [address] Jan, [facility] [place] [facility] [address] [id number] [place] [address] Jan, [facility] [place] [facility] [address] [id number] [place] [address] Jan, [facility] [place] [facility] [address] [id number] [place] [address] Jan, [facility] [place] [facility] [address] [id number] [place] [address] Jan, [facility] [place] [facility] [address] [id number] [place] [address] Jan, [facility] [place] [facility] [address] [id number] [place] [address] Jan, [facility] [place] [facility] [address] [id number] [place] [address] Jan, [facility] [place] [facility] [address] [id number] [place] [address] Jan, [facility] [place] [facility] [address] [id number] [place] [address] Jan, [facility] [place] [facility] [address] [id number] [place] [address] Jan, [facility] [place] [facility] [address] [id number], [place] [address] Jan, [facility] [place] [facility] [address] [id number] [place] [address] Jan, [facility] [place] [facility] [address] [id number] [place] [address] 16 Jan, 2014 [facility] [place] [facility] [address] [id number], [place] [address] Jan, [facility] [place] [facility] [address] [id number], [place] [address] 13 Jan, 2014 [facility] [place] [facility] [address] [id number] [place] [address]46 29 Sep, 2013 [facility] [place] [facility] [address] [id number] [place] [address]46 29 Dec, 2013 [facility] [place] [facility] [address] [id number] [place] [address] 2546 26 Dec, 2013 [facility] [place] [facility] [address] [id number] [place] [address] 2546 26 Dec, 2013 [facility] [place] [facility] [address] [id number] [place] [address] 2544 26 Dec, 2013 [facility] [place] [facility] [address] [id number] [place] [address] 26 Dec, 2013 [facility] [place] [facility] [address] [id number] [place] [address] 23 Dec, 2013 [facility] [place] [facility] [address] [id number] [place] [address] 23 Dec, 2013 [facility] [place] [facility] [address] [id number] [place] [address]45 22 Dec, 2013 [facility] [place] [facility] [address] [id number] [place] [address] 2549 22 Dec, 2013 [facility] [place] [facility] [address] [id number], [place] [address] 16 Dec, 2013 [facility] [place] [facility] [address] [id number], [place] [address] 16 Dec, 2013 [facility] [place] [facility] [address] [id number], [place] [address]46 15 Dec, 2013 [facility] [place] [facility] [address] [id number] [place] [address] 2546 15 Dec, 2013 [facility] [place] [facility] [address] [id number] [place] [address] 09 Dec, 2013 [facility] [place] [facility] [address] [id number] [place] [address] Dec, [facility] [place] [facility] [address] [id number] [place] [address] Dec, [facility] [place] [facility] [address] [id number] [place] [address] Nov, [facility] [place] [facility] [address] [id number] [place] [address]- [address] Nov, [facility] [place] [facility] [address] [id number] [place] [address] Nov, [facility] [place] [facility] [address] [id number] [place] [address] Nov, [facility] [place] [facility] [address] [id number] [place] [address] Nov, [facility] [place] [facility] [address] [id number] [place] [address] Nov, [facility] [place] [facility] [address] [id number] [place] [address] Nov, [facility] [place] [facility] [address] [id number] [place] [address] Nov, [facility] [place] [facility] [address] [id number] [place] [address] Nov, [facility] [place] [facility] [address] [id number] [place] [address] Nov, [facility] [place] [facility] [address] [id number] [place] [address] Nov, [facility] [place] [facility] [address] [id number] [place] [address] Nov, [facility] [place] [facility] [address] [id number] [place] [address]- [address] Nov, [facility] [place] [facility] [address] [id number] [place] [address] Nov, [facility] [place] [facility] [address] [id number] [place] [address] Nov, [facility] [place] [facility] [address] [id number] [place] [address] Nov, [facility] [place] [facility] [address] [id number] [place] [address] Nov, [facility] [place] [facility] [address] [id number] [place] [address]- 6766 Nov, [facility] [place] [facility] [address] [id number] [place] [address] 1616 Nov, [facility] [place] [facility] [address] [id number] [place] [address] 3848 Nov, [facility] [place] [facility] [address] [id number] [place] [address]- 8499 Nov, [facility] [place] [facility] [address] [id number] [place] [address]- 8250 Oct, [facility] [place] [facility] [address] [id number] [place] [address]- 5274 Oct, [facility] [place] [facility] [address] [id number] [place] [address]- 7767 Oct, [facility] [place] [facility] [address] [id number] [place] [address] 2767 Oct, [facility] [place] [facility] [address] [id number] [place] [address]- 5484 Oct, [facility] [place] [facility] [address] [id number] [place] [address]- 9199 Oct, [facility] [place] [facility] [address] [id number] [place] [address]- 6607 Oct, [facility] [place] [facility] [address] [id number] [place] [address]- 4078 Oct, [facility] [place] [facility] [address] [id number] [place] [address]- 5[address] 15 Oct, 2013 [facility] [place] [facility] [address] [id number] [place] [address]- 9777 14 Oct, 2013 [facility] [place] [facility] [address] [id number] [place] [address]- 5816 Oct, [facility] [place] [facility] [address] [id number] [place] [address]- 2529 Oct, [facility] [place] [facility] [address] [id number] [place] [address]- 2879 Oct, [facility] [place] [facility] [address] [id number] [place] [address]- 9072 Oct, [facility] [place] [facility] [address] [id number] [place] [address]- 0305 Oct, [facility] [place] [facility] [address] [id number] [place] [address]- 4406 Sep, [facility] [place] [facility] [address] [id number] [place] [address]- 4140 Sep, [facility] [place] [facility] [address] [id number] [place] [address]- 0907 Sep, [facility] [place] [facility] [address] [id number] [place] [address]- 6625 Sep, [facility] [place] [facility] [address] [id number] [place] [address]- 1336 Sep, [facility] [place] [facility] [address] [id number] [place] [address]- 9148 Sep, [facility] [place] [facility] [address] [id number] [place] [address]- 8391 Sep, [facility] [place] [facility] [address] [id number] [place] [address]- 7129 Sep, [facility] [place] [facility] [address] [id number] [place] [address]- 7455 17 Sep, 2013 [facility] [place] [facility] [address] [id number] [place] [address]- 9130 Sep, [facility] [place] [facility] [address] [id number] [place] [address]- 3486 Sep, [facility] [place] [facility] [address] [id number] [place] [address]- 7831 Sep, [facility] [place] [facility] [address] [id number] [place] [address]- 8829 Sep, [facility] [place] [facility] [address] [id number] [place] [address]- 5826 Sep, [facility] [place] [facility] [address] [id number] [place] [address]- 6941 Sep, [facility] [place] [facility] [address] [id number] [place] [address]- 4795 Sep, [facility] [place] [facility] [address] [id number] [place] [address]- 7501 Sep, [facility] [place] [facility] [address] [id number] [place] [address]- 8106 Sep, [facility] [place] [facility] [address] [id number] [place] [address]- 0741 Sep, [facility] [place] [facility] [address] [id number] [place] [address]- 9528 Sep, [facility] [place] [facility] [address] [id number] [place] [address]- 7819 Sep, [facility] [place] [facility] [address] [id number] [place] [address]- 0202 Sep, [facility] [place] [facility] [address] [id number] [place] [address]- 4607 August, [facility] [place] [facility] [address] [id number] [place] [address]- 5977 August, [facility] [place] [facility] [address] [id number] [place] [address]- 7015 August, [facility] [address] [id number] [place] [address]- 9625 August, [facility] [place] [facility] [address] [id number] [place] [address]- 5180 August, [facility] [place] [facility] [address] [id number] [place] [address]- 9270 August, [facility] [place] [facility] [address] [id number] [place] [address]- 6902 August, [facility] [place] [facility] [address] [id number] [place] [address]- 5420 August, [facility] [place] [facility] [address] [id number] [place] [address]- 8155 August, [facility] [place] [facility] [address] [id number] [place] [address]- 4226 August, [facility] [place] [facility] [address] [id number] [place] [address]- 3291 August, [facility] [place] [facility] [address] [id number] [place] [address]- 9277 August, [facility] [place] [facility] [address] [id number] [place] [address]- 8351 August, [facility] [place] [facility] [address] [id number] [place] [address]- 8266 August, [facility] [place] [facility] [address] [id number] [place] [address]- 1170 August, [facility] [place] [facility] [address] [id number] [place] [address]- 6817 August, [facility] [place] [facility] [address] [id number] [place] [address]- 3453 August, [facility] [place] [facility] [address] [id number] [place] [address]- 7695 August, [facility] [place] [facility] [address] [id number] [place] [address]- 3757 Jul, [facility] [place] [facility] [address] [id number] [place] [address]- 1236 Jul, [facility] [place] [facility] [address] [id number] [place] [address]- 3611 Jul, [facility] [place] [facility] [address] [id number] [place] [address]- 0465 Jul, [facility] [place] [facility] [address] [id number] [place] [address]- 7578 Jul, [facility] [place] [facility] [address] [id number] [place] [address]- 1765 Jul, [facility] [place] [facility] [address] [id number] [place] [address]- 4817 Jul, [facility] [place] [facility] [address] [id number] [place] [address]- 2182 Jul, [facility] [place] [facility] [address] [id number] [place] [address]- 5903 Jul, [facility] [place] [facility] [address] [id number] [place] [address]- 7311 Jul, [facility] [place] [facility] [address] [id number] [place] [address]- 9250 Jul, [facility] [place] [facility] [address] [id number] [place] [address]- 1500 Jul, [facility] [place] [facility] [address] [id number] [place] [address]- 7594 Jul, [facility] [place] [facility] [address] [id number] [place] [address]- 4492 Jul, [facility] [place] [facility] [address] [id number] [place] [address]- 1763 Jul, [facility] [place] [facility] [address] [id number] [place] [address]- 4064 Jul, [facility] [place] [facility] [address] [id number] [place] [address]- 8141 17 Jul, 2013 [facility] [place] [facility] [address] [id number] [place] [address]- 8135 16 Jul, 2013 [facility] [place] [facility] [address] [id number] [place] [address]- 9913 16 Jul, 2013 [facility] [place] [facility] [address] [id number] [place] [address]- 8928 15 Jul, 2013 [facility] [place] [facility] [address] [id number] [place] [address]- 3269 15 Jul, 2013 [facility] [place] [facility] [address] [id number] [place] [address]- 5948 14 Jul, 2013 [facility] [place] [facility] [address] [id number] [place] [address]- 1251 Jul, [facility] [place] [facility] [address] [id number] [place] [address]- 2549 Jul, [facility] [place] [facility] [address] [id number] [place] [address]- 0004 Jul, [facility] [place] [facility] [address] [id number] [place] [address]- 0377 Jul, [facility] [place] [facility] [address] [id number] [place] [address]- 5282 Jul, [facility] [place] [facility] [address] [id number] [place] [address]- 9911 Jul, [facility] [place] [facility] [address] [id number] [place] [address]- 1697 Jul, [facility] [place] [facility] [address] [id number] [place] [address]- 8107 Jun, [facility] [place] [facility] [address] [id number] [place] [address]- 6660 Jun, [facility] [place] [facility] [address] [id number] [place] [address]- 3649 17 Jun, 2013 [facility] [place] [facility] [address] [id number] [place] [address]- 7781 17 Jun, 2013 [facility] [place] [facility] [address] [id number] [place] [address]- 0006 Jun, [facility] [place] [facility] [address] [id number] [place] [address]- 1769 Jun, [facility] [place] [facility] [address] [id number] [place] [address]- 1920 Jun, [facility] [place] [facility] [address] [id number] [place] [address]- 9921 Jun, [facility] [place] [facility] [address] [id number] [place] [address]- 9066 Jun, [facility] [place] [facility] [address] [facility] [id number] [place] [address]- 3311 Jun, [facility] [place] [facility] [address] [id number] [place] [address]- 0499 Jun, [facility] [place] [facility] [address] [id number] [place] [address]- 0322 Jun, [facility] [place] [facility] [address] [facility] [id number] [place] [address]- 3353 May, [facility] [place] [facility] [address] [id number] [place] [address]- 3659 May, [facility] [place] [facility] [address] [id number] [place] [address]- 1942 May, [facility] [place] [facility] [address] [id number] [place] [address]- 9713 May, [facility] [place] [facility] [address] [id number] [place] [address]- 6849 May, [facility] [place] [facility] [address] [facility] [id number] [place] [address]- 6488 May, [facility] [place] [facility] [address] [id number] [place] [address]- 8135 May, [facility] [place] [facility] [address] [id number] [place] [address]- 0281 May, [facility] [place] [facility] [address] [id number] [place] [address]- 8526 May, [facility] [place] [facility] [address] [id number] [place] [address]- 8365 May, [facility] [place] [facility] [address] [id number] [place] [address]- 3398 Apr, [facility] [place] [facility] [address] [id number] [place] [address]- 0486 Apr, [facility] [place] [facility] [address] [id number] [place] [address]- 2320 Apr, [facility] [place] [facility] [address] [id number] [place] [address]- 6818 Apr, [facility] [place] [facility] [address] [id number] [place] [address]- 1835 Apr, [facility] [place] [facility] [address] [id number] [place] [address]- 3266 Apr, [facility] [place] [facility] [address] [id number] [place] [address]- 9404 Apr, [facility] [place] [facility] [address] [id number] [place] [address]- 3140 Apr, [facility] [place] [facility] [address] [id number] [place] [address]- 9539 Apr, [facility] [place] [facility] [address] [id number] [place] [address]- 7308 Apr, [facility] [place] [facility] [address] [id number] [place] [address]- 4417 Mar, [facility] [place] [facility] [address] [id number], [place] [address]- 4404 Mar, [facility] [place] [facility] [address] [id number] [place] [address]- 2776 Mar, [facility] [place] [facility] [address] [id number] [place] [address]- 3917 Mar, [facility] [place] [facility] [address] [id number] [place] [address]- 8666 Mar, [facility] [place] [facility] [address] [id number] [place] [address]- 0514 Mar, [facility] [place] [facility] [address] [id number] [place] [address]- 8863 Feb, [facility] [place] [facility] [address] [id number] [place] [address]- 7999 Feb, [facility] [place] [facility] [address] [facility] [id number] [place] [address]- 2341 Feb, [facility] [place] [facility] [address] [id number] [place] [address]- 2705 Jan, [facility] [place] [facility] [address] [facility] [id number] [place] [address]- 0198 30 Jan, 2013 [facility] [place] [facility] [address] [facility] [id number] [place] [address]- 1337 Jan, [facility] [place] [facility] [address] [id number], [place] [address]- 3496 28 Jan, 2013 [facility] [place] [facility] [address] [id number], [place] [address]- 0490 15 Jan, 2013 [facility] [place] [facility] [address] [id number] [place] [address]- 0530 15 Jan, 2013 [facility] [place] [facility] [address] [facility] [id number], [place] [address]- 0102 Jan, [facility] [place] [facility] [address] [facility] [id number], [place] [address]- 8613 11 Jan, 2013 [facility] [place] [facility] [address] [id number] [place] [address]- 2391 Jan, [facility] [place] [facility] [address] [id number] [place] [address]- 3751 Jan, [facility] [place] [facility] [address] [id number] [place] [address]- 9126 30 Dec, 2012 [facility] [place] [facility] [address] [id number] [place] [address]- 5156 25 Dec, 2012 [facility] [place] [facility] [address] [id number] [place] [address]- 1546 11 Dec, 2012 [facility] [place] [facility] [address] [id number] [place] [address]- 5773 Dec, 2012 [facility] [place] [facility] [address] [id number] [place] [address]- 1435 05 Dec, 2012 [facility] [place] [facility] [address] [id number] [place] [address]- 5752 Dec, 2012 [facility] [place] [facility] [address] [id number] [place] [address]- 8855 Nov, [facility] [place] [facility] [address] [id number] [place] [address]- 6650 Nov, [facility] [place] [facility] [address] [id number] [place] [address]- 4242 Nov, [facility] [place] [facility] [address] [id number] [place] [address]- 0685 Nov, [facility] [place] [facility] [address] [id number] [place] [address] 2547 Nov, [facility] [place] [facility] [address] [id number] [place] [address]- 0816 Nov, [facility] [place] [facility] [address] [id number] [place] [address]- 254 Nov, [facility] [place] [facility] [address] [id number] [place] [address]- 2869 Nov, [facility] [address] [id number] [place] [address]- 1152 Nov, [facility] [place] [facility] [address] [id number] [place] [address]- 5554 Nov, [facility] [place] [facility] [address] [id number] [place] [address]- 7120 Nov, [facility] [place] [facility] [address] [id number] [place] [address]- 3666 Nov, [facility] [place] [facility] [address] [id number] [place] [address]- 6075 Oct, [facility] [place] [facility] [address] [id number] [place] [address]- 7602 Oct, [facility] [place] [facility] [address] [id number] [place] [address]- 4599 Oct, [facility] [place] [facility] [address] [id number] [place] [address]- 4308 Sep, [facility] [place] [facility] [address] [id number] [place] [address]- 0459 Sep, [facility] [place] [facility] [address] [id number] [place] [address]- 9930 Sep, [facility] [place] [facility] [address] [id number] [place] [address]- 7959 August, [facility] [place] [facility] [address] [id number] [place] [address]- 6326 August, [facility] [place] [facility] [address] [id number] [place] [address]- 9345 August, [facility] [place] [facility] [address] [id number] [place] [address]- 9527 August, [facility] [place] [facility] [address] [id number] [place] [address]- 2182 August, [facility] [place] [facility] [address] [id number] [place] [address]- 0633 August, [facility] [address] [id number] [place] [address]- 8097 30 Jul, 2012 [facility] [place] [facility] [address] [id number] [place] [address]- 3304 15 Jul, 2012 [facility] [address] [id number] [place] [address]- 5322 Jul, [facility] [place] [facility] [address] [id number] [place] [address]- 3216 Jul, [facility] [address] [id number] [place] [address]- 7040 Jul, [facility] [place] [facility] [address] [id number] [place] [address]- 3580 Jul, [facility] [address] [id number] [place] [address]- 7821 2012 [facility] [address] [id number] [place] [address]- 5615 20 Jun, 2012 [facility] [address] [id number] [place] [address]- 0629 18 Jun, 2012 [facility] [address] [id number] [place] [address]- 6111 14 Jun, 2012 [facility] [place] [facility] [address] [id number] [place] [address]- 8012 04 Jun, 2012 [facility] [place] [facility] [address] [id number] [place] [address]- 4582 May, [facility] [place] [facility] [address] [id number] [place] [address]- 6205 12 May, 2012 [facility] [place] [facility] [address] [id number] [place] [address]- 9960 May, [facility] [place] [facility] [address] [id number] [place] [address] 08 May, 2012 [facility] [address] [id number] [place] [address] Apr, [facility] [place] [facility] [address] [id number] [place] [address] Apr, [facility] [place] [facility] [address] [id number] [place] [address] Apr, [facility] [place] [facility] [address] [id number] [place] [address] Mar, [facility] [place] [facility] [address] [id number] [place] [address] Mar, [facility] [place] [facility] [address] [id number] [place] [address] Mar, [facility] [place] [facility] [address] [id number] [place] [address] Mar, [facility] [place] [facility] [address] [id number] [place] [address] Mar, [facility] [place] [facility] [address] [id number] [place] [address] Mar, [facility] [place] [facility] [address] [id number] [place] [address] Mar, [facility] [place] [facility] [address] [id number] [place] [address] Mar, [facility] [place] [facility] [address] [id number], [place] [address] Feb, [facility] [place] [facility] [address] [id number] [place] [address] Feb, [facility] [place] [facility] [address] [id number] [place] [address] Feb, [facility] [place] [facility] [address] [id number] [place] [address] Feb, [facility] [place] [facility] [address] [id number], [place] [address] Feb, [facility] [place] [facility] [address] [id number] [place] [address] Feb, [facility] [place] [facility] [address] [id number] [place] [address] Feb, [facility] [place] [facility] [address] [facility] [id number] [place] [address] Feb, [facility] [place] [facility] [address] [id number] [place] [address] 96[address] Feb, [facility] [place] [facility] [address] [id number] [place] [address]- 115[address] Feb, [facility] [place] [facility] [address] [facility] [id number] [place] [address] Feb, [facility] [place] [facility] [address] [id number] [place] [address] Feb, [facility] [place] [facility] [address] [facility] [id number] [place] [address]- [address] Feb, [facility] [place] [facility] [address] [facility] [id number] [place] [address]- [address] Feb, [facility] [place] [facility] [address] [facility] [id number] [place] [address]773 Feb, [facility] [place] [facility] [address] [facility] [id number], [place] [address] Feb, [facility] [place] [facility] [address] [facility] [id number], [place] [address]- [address] Feb, [facility] [place] [facility] [address] [facility] [id number], [place] [address] Feb, [facility] [place] [facility] [address] [facility] [id number] [place] [address] Jan, [facility] [place] [facility] [address] [facility] [id number], [place] [address] Jan, [facility] [place] [facility] [address] [id number] [place] [address] 22 Jan, 2011 [facility] [place] [facility] [address] [id number] [place] [address] 20 Jan, 2012 [facility] [place] [facility] [address] [id number] [place] [address] 8943 20 Jan, 2012 [facility] [place] [facility] [address] [id number] [place] [address]60 19 Jan, 2012 [facility] [place] [facility] [address] [id number] [place] [address]107 18 Jan, 2012 [facility] [place] [facility] [address] [id number] [place] [address] 8887 18 Jan, 2012 [facility] [place] [facility] [address] [id number] [place] [address]- 7545 15 Jan, 2012 [facility] [place] [facility] [address] [id number] [place] [address]- 0966 15 Jan, 2012 [facility] [place] [facility] [address] [id number] [place] [address]- 2518 11 Jan, 2012 [facility] [place] [facility] [address] [id number] [place] [address]- 9046 11 Jan, 2012 [facility] [place] [facility] [address] [facility] [id number] [place] [address]- 5589 10 Jan, 2012 [facility] [place] [facility] [address] [id number] [place] [address]- 1017 09 Jan, 2012 [facility] [place] [facility] [address] [id number] [place] [address]- 4653 02 Jan, 2012 [facility] [place] [facility] [address] [id number] [place] [address]- [address]226 29 Dec, 2011 [facility] [place] [facility] [address] [id number] [place] [address]- 1436 28 Dec, 2011 [facility] [place] [facility] [address] [id number] [place] [address]- 2942 Dec, [facility] [place] [facility] [address] [id number] [place] [address]- [address]777 Dec, [facility] [place] [facility] [address] [id number] [place] [address] 7527 Nov, [facility] [place] [facility] [address] [id number] [place] [address] 0347 Nov, [facility] [place] [facility] [address] [id number] [place] [address]- 8522 Nov, [facility] [place] [facility] [address] [id number] [place] [address]- 3923 Nov, [facility] [place] [facility] [address] [id number] [place] [address]- 9340 Nov, [facility] [place] [facility] [address] [id number] [place] [address] 5319 Nov, [facility] [place] [facility] [address] [id number] [place] [address]- 5882 Nov, [facility] [place] [facility] [address] [id number] [place] [address]- 7854 Nov, [facility] [place] [facility] [address] [id number] [place] [address] 5849 Nov, [facility] [place] [facility] [address] [id number] [place] [address]- 7286 Nov, [facility] [place] [facility] [address] [id number] [place] [address]- 5874 Nov, [facility] [place] [facility] [address] [id number] [place] [address]- 7027 Oct, [facility] [place] [facility] [address] [id number] [place] [address]- 3624 Oct, [facility] [place] [facility] [address] [id number] [place] [address]- 3900 Oct, [facility] [place] [facility] [address] [id number] [place] [address]- 7802 Oct, [facility] [place] [facility] [address] [id number] [place] [address]- 0051 Oct, [facility] [place] [facility] [address] [id number] [place] [address]- 2166 Oct, [facility] [place] [facility] [address] [id number] [place] [address]- 1256 Oct, [facility] [place] [facility] [address] [id number] [place] [address]- 2649 Oct, [facility] [place] [facility] [address] [id number] [place] [address]- 7021 Sep, [facility] [place] [facility] [address] [id number] [place] [address]- 0479 Sep, [facility] [place] [facility] [address] [id number] [place] [address]- 5884 Sep, [facility] [place] [facility] [address] [id number] [place] [address]- 4026 Sep, [facility] [place] [facility] [address] [id number] [place] [address]- 5405 Sep, [facility] [place] [facility] [address] [id number] [place] [address]- 7693 Sep, [facility] [place] [facility] [address] [id number] [place] [address]- 3284 Sep, [facility] [place] [facility] [address] [id number] [place] [address] August, [facility] [place] [facility] [address] [id number] [place] [address] August, [facility] [place] [facility] [address] [id number] [place] [address] August, [facility] [place] [facility] [address] [id number] [place] [address] August, [facility] [place] [facility] [address] [id number] [place] [address] August, [facility] [address] [id number] [place] [address] August, [facility] [place] [facility] [address] [id number] [place] [address] August, [facility] [address] [id number] [place] [address] August, [facility] [address] [id number] [place] [address] Jul, [facility] [place] [facility] [address] [id number] [place] [address] 17 Jul, 2011 [facility] [address] [id number] [place] [address] Jul, [facility] [address] [id number] [place] [address] Jul, [facility] [address] [id number] [place] [address] Jul, [facility] [address] [id number] [place] [address] 28 Jun, 2011 [facility] [place] [facility] [address] [id number] [place] [address] 2011 [facility] [place] [facility] [address] [id number] [place] [address] 20 Jun, 2011 [facility] [place] [facility] [address] [id number] [place] [address]12 19 Jun, 2011 [facility] [place] [facility] [address] [id number] [place] [address] 12 Jun, 2011 [facility] [place] [facility] [address] [id number] [place] [address] Jun, [facility] [place] [facility] [address] [id number] [place] [address] Jun, [facility] [address] [id number] [place] [address] Jun, [facility] [address] [id number] [place] [address] Jun, [facility] [address] [id number] [place] [address] May, [facility] [address] [id number] [place] [address] May, [facility] [address] [id number] [place] [address] May, [facility] [address] [id number] [place] [address] May, [facility] [address] [id number] [place] [address] May, [facility] [address] [id number] [place] [address] May, [facility] [address] [id number] [place] [address] May, [facility] [address] [facility] [id number] [place] [address] May, [facility] [address] [facility] [id number] [place] [address] Apr, [facility] [place] [facility] [address] [id number] [place] [address] Apr, [facility] [place] [facility] [address] [id number] [place] [address] Apr, [facility] [place] [facility] [address] [id number] [place] [address] Apr, [facility] [address] [facility] [id number] [address] Apr, [facility] [address] [id number] [place] [address] 05 Apr, 2011 [facility] [address] [id number] [place] [address] Mar, [facility] [place] [facility] [address] [id number] [place] [address] Mar, [facility] [place] [facility] [address] [id number] [place] [address] Mar, [facility] [address] [id number] [place] [address] Mar, [facility] [place] [facility] [address] [id number] [place] [address] 15 Mar, 2011 [facility] [address] [id number] [place] [address] Mar, [facility] [place] [facility] [address] [id number] [place] [address] Mar, [facility] [place] [facility] [address] [id number] [place] [address] Mar, [facility] [place] [facility] [address] [id number] [place] [address] Mar, [facility] [place] [facility] [address] [id number] [place] [address] Mar, [facility] [place] [facility] [address] [id number] [place] [address] Mar, [facility] [place] [facility] [address] [id number] [place] [address]- 97[address] Mar, [facility] [place] [facility] [address] [id number] [place] [address] 9336 Mar, [facility] [place] [facility] [address] [id number] [place] [address] Feb, [facility] [place] [facility] [address] [id number] [place] [address] 2016 Feb, [facility] [place] [facility] [address] [id number] [place] [address] 17 Feb, 2011 [facility] [place] [facility] [address] [id number] [place] [address] Feb, [facility] [place] [facility] [address] [id number] [place] [address]35 Feb, [facility] [place] [facility] [address] [id number] [place] [address] 1723 Feb, [facility] [place] [facility] [address] [id number] [place] [address] 1680 Feb, [facility] [place] [facility] [address] [id number] [place] [address]- 1709 Jan, [facility] [place] [facility] [address] [id number] [place] [address] Jan, [facility] [place] [facility] [address] [id number] [place] [address] 69[address] Jan, [facility] [place] [facility] [address] [id number] [place] [address]- [address] Nov, [facility] [place] [facility] [address] [id number] [place] [address]- 9544 Mar, [facility] [place] [facility] [address] [id number], [place] [address] Mar, [facility] [place] [facility] [address] [id number], [place] [address] 20 Mar, 2010 [facility] [place] [facility] [address] [id number] [place] [address]- 2354 13 Mar, 2010 [facility] [place] [facility] [address] [id number] [place] [address] 07 Mar, 2010 [facility] [place] [facility] [address] [id number] [place] [address]- 9084 30 Feb, 2010 [facility] [place] [facility] [address] [facility] [id number] [place] [address] 30 Feb, 2010 [facility] [address] [facility] [id number], [place] [address] 24 Feb, 2010 [facility] [address] [facility] [id number], [place] [address]- [address]67 19 Feb, 2010 [facility] [address] [facility] [id number], [place] [address] 19 Feb, 2010 [facility] [address] [facility] [id number] [place] [address] 15 Feb, 2010 IMMUNIZATIONS No Known Immunizations SOCIAL HISTORY Never Assessed REASON FOR VISIT requesting return call on 08/17 PLAN OF CARE VITAL SIGNS MEDICATIONS Unknown [...] Mastectomy 02/01/2017 Hospitalization History surgeries Hospitalization History [facility] ED 10/06/2017
--- OUTSIDE RECORDS SUMMARY | 2017-12-22 03:55 | XMS REPORT ---
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 [address]- 3556 18 Jun, 2014 [facility] [place] [facility] [address] [id number] [place] [address]- 0783 18 Jun, 2014 [facility] [place] [facility] [address] [id number] [place] [address]- 2645 18 Jun, 2014 [facility] [place] [facility] [address] [id number] [place] [address]- 9156 18 Jun, 2014 [facility] [place] [facility] [address] [id number] [place] [address]- 5062 17 Jun, 2014 [facility] [place] [facility] [address] [id number] [place] [address]- 1956 17 Jun, 2014 [facility] [place] [facility] [address] [id number] [place] [address]- 0202 17 Jun, 2014 [facility] [place] [facility] [address] [id number] [place] [address]- 9709 17 Jun, 2014 [facility] [place] [facility] [address] [id number] [place] [address]- 7064 13 Jun, 2014 [facility] [place] [facility] [address] [id number] [place] [address]- 1544 13 Jun, 2014 [facility] [place] [facility] [address] [id number] [place] [address]- 9387 12 Jun, 2014 [facility] [place] [facility] [address] [id number] [place] [address]- 0200 12 Jun, 2014 [facility] [place] [facility] [address] [id number] [place] [address]- 8572 10 Jun, 2014 [facility] [place] [facility] [address] [id number] [place] [address]- 0169 10 Jun, 2014 [facility] [place] [facility] [address] [id number] [place] [address]- 7006 10 Jun, 2014 [facility] [place] [facility] [address] [id number] [place] [address]- 8050 10 Jun, 2014 [facility] [place] [facility] [address] [id number] [place] [address]- 0748 06 Jun, 2014 [facility] [place] [facility] [address] [id number] [place] [address]- 1552 06 Jun, 2014 [facility] [place] [facility] [address] [id number] [place] [address]- 2342 Jun, 2014 [facility] [place] [facility] [address] [id number] [place] [address]- 2721 Jun, 2014 [facility] [place] [facility] [address] [id number] [place] [address]- 8782 Jun, 2014 [facility] [place] [facility] [address] [id number] [place] [address]- 4745 Jun, [facility] [place] [facility] [address] [id number] [place] [address]- 1352 May, 2014 [facility] [place] [facility] [address] [id number] [place] [address]- 8805 May, 2014 [facility] [place] [facility] [address] [id number] [place] [address]- 2849 May, 2014 [facility] [place] [facility] [address] [facility] [id number] [place] [address]- 0250 May, 2014 [facility] [place] [facility] [address] [facility] [id number] [place] [address]- 2259 May, 2014 [facility] [place] [facility] [address] [facility] [id number] [place] [address]- 0819 May, 2014 [facility] [place] [facility] [address] [facility] [id number] [place] [address]- 9181 May, 2014 [facility] [place] [facility] [address] [facility] [id number] [place] [address]- 7434 May, 2014 [facility] [place] [facility] [address] [facility] [id number] [place] [address]- 0311 May, 2014 [facility] [place] [facility] [address] [id number] [place] [address]- 2837 May, 2014 [facility] [place] [facility] [address] [facility] [id number] [place] [address]- 7830 May, 2014 [facility] [place] [facility] [address] [facility] [id number] [place] [address]- 0278 May, 2014 [facility] [place] [facility] [address] [id number] [place] [address]- 1726 May, 2014 [facility] [place] [facility] [address] [id number] [place] [address]- 3745 May, [facility] [place] [facility] [address] [id number] [place] [address]- 3773 May, [facility] [place] [facility] [address] [id number] [place] [address]- 6418 May, [facility] [place] [facility] [address] [id number] [place] [address]- 5824 Apr, [facility] [place] [facility] [address] [id number] [place] [address]- 1097 Apr, [facility] [place] [facility] [address] [id number] [place] [address]- 0981 Apr, [facility] [place] [facility] [address] [id number] [place] [address]- 0272 Apr, [facility] [place] [facility] [address] [id number] [place] [address]- 3833 Apr, [facility] [place] [facility] [address] [id number] [place] [address]- 2944 Apr, [facility] [place] [facility] [address] [id number] [place] [address]- 1697 Apr, [facility] [place] [facility] [address] [id number] [place] [address]- 8437 Apr, [facility] [place] [facility] [address] [id number] [place] [address]- 7902 Apr, [facility] [place] [facility] [address] [id number] [place] [address]- 9313 Apr, [facility] [place] [facility] [address] [id number] [place] [address]- 9136 Apr, [facility] [place] [facility] [address] [id number] [place] [address]- 3170 Apr, [facility] [place] [facility] [address] [id number] [place] [address]- 9527 Apr, [facility] [place] [facility] [address] [id number] [place] [address]- 8276 Apr, [facility] [place] [facility] [address] [id number] [place] [address]- 6351 Apr, [facility] [place] [facility] [address] [id number] [place] 2896 Mar, [facility] [place] [facility] [address] [id number] [place] [address]- 8842 Mar, [facility] [place] [facility] [address] [id number] [place] [address]- 8631 Mar, [facility] [place] [facility] [address] [id number] [place] [address]- 4380 Mar, [facility] [place] [facility] [address] [id number] [place] [address]- 7732 Mar, [facility] [place] [facility] [address] [id number] [place] [address]- 3108 Mar, [facility] [place] [facility] [address] [id number] [place] [address]- 1993 15 Mar, 2014 [facility] [place] [facility] [address] [id number] [place] [address]- 5938 15 Mar, 2014 [facility] [place] [facility] [address] [id number] [place] [address]- 2617 15 Mar, 2014 [facility] [place] [facility] [address] [id number] [place] [address]- 5456 15 Mar, 2014 [facility] [place] [facility] [address] [id number] [place] [address]- 6657 15 Mar, 2014 [facility] [place] [facility] [address] [id number] [place] [address]- 0145 15 Mar, 2014 [facility] [place] [facility] [address] [id number] [place] [address]- 4873 Mar, [facility] [place] [facility] [address] [id number] [place] [address]- 4324 Mar, [facility] [place] [facility] [address] [id number] [place] [address]- 5771 Mar, [facility] [place] [facility] [address] [id number] [place] [address]- 2958 Mar, [facility] [place] [facility] [address] [id number] [place] [address]- 5131 Mar, [facility] [place] [facility] [address] [id number] [place] [address]- 4499 Mar, [facility] [place] [facility] [address] [id number] [place] [address]- 5994 Feb, [facility] [place] [facility] [address] [id number] [place] [address]- 7274 Feb, [facility] [place] [facility] [address] [id number] [place] [address]- 1829 Feb, [facility] [place] [facility] [address] [id number] [place] [address]- 6735 Feb, [facility] [place] [facility] [address] [facility] [id number] [place] [address]- 7580 Feb, [facility] [place] [facility] [address] [id number] [place] [address]- 2908 Feb, [facility] [place] [facility] [address] [id number] [place] [address]- 2178 Feb, [facility] [place] [facility] [address] [id number] [place] 3186 Feb, [facility] [place] [facility] [address] [id number] [place] [address]- 0999 Jan, [facility] [place] [facility] [address] [id number] [place] [address]- 9348 Jan, [facility] [place] [facility] [address] [id number] [place] [address]- 9808 Jan, [facility] [place] [facility] [address] [id number] [place] [address]- 0422 Jan, [facility] [place] [facility] [address] [id number] [place] [address]- 9537 Jan, [facility] [place] [facility] [address] [id number] [place] [address]- 3684 Jan, [facility] [place] [facility] [address] [id number] [place] [address]- 2880 Jan, [facility] [place] [facility] [address] [id number] [place] [address]- 4390 Jan, [facility] [place] [facility] [address] [id number] [place] [address]- 8854 Jan, [facility] [place] [facility] [address] [id number] [place] [address]- 8172 Jan, [facility] [place] [facility] [address] [id number] [place] [address]- 5671 Jan, [facility] [place] [facility] [address] [id number], [place] [address]- [address] Jan, [facility] [place] [facility] [address] [id number], [place] [address] Jan, [facility] [place] [facility] [address] [id number], [place] [address] Jan, [facility] [place] [facility] [address] [id number], [place] [address] Jan, [facility] [place] [facility] [address] [id number], [place] [address] 16 Jan, 2014 [facility] [place] [facility] [address] [id number], [place] [address] 13 Jan, 2014 [facility] [place] [facility] [address] [id number], [place] [address] 13 Jan, 2014 [facility] [place] [facility] [address] [id number] [place] [address]46 29 Sep, 2013 [facility] [place] [facility] [address] [id number] [place] [address] 2546 29 Dec, 2013 [facility] [place] [facility] [address] [id number] [place] [address] 2546 26 Dec, 2013 [facility] [place] [facility] [address] [id number] [place] [address] 2540 26 Dec, 2013 [facility] [place] [facility] [address] [id number] [place] [address] 26 Dec, 2013 [facility] [place] [facility] [address] [id number] [place] [address]- 1790 26 Dec, 2013 [facility] [place] [facility] [address] [id number] [place] [address]- [address] 23 Dec, 2013 [facility] [place] [facility] [address] [id number] [place] [address]- [address] 23 Dec, 2013 [facility] [place] [facility] [address] [id number] [place] [address] 254 22 Dec, 2013 [facility] [place] [facility] [address] [id number] [place] [address] 2543 22 Dec, 2013 [facility] [place] [facility] [address] [id number], [place] [address] 2542 16 Dec, 2013 [facility] [place] [facility] [address] [id number], [place] [address]- [address] 16 Dec, 2013 [facility] [place] [facility] [address] [id number], [place] [address] 2546 15 Dec, 2013 [facility] [place] [facility] [address] [id number] [place] [address] 2546 15 Dec, 2013 [facility] [place] [facility] [address] [id number] [place] [address]- [address] 09 Dec, 2013 [facility] [place] [facility] [address] [id number] [place] [address] Dec, [facility] [place] [facility] [address] [id number] [place] [address] Dec, [facility] [place] [facility] [address] [id number] [place] [address] Nov, [facility] [place] [facility] [address] [id number] [place] [address] Nov, [facility] [place] [facility] [address] [id number] [place] [address] Nov, [facility] [place] [facility] [address] [id number] [place] [address] 81[address] Nov, [facility] [place] [facility] [address] [id number] [place] [address]- [address] Nov, [facility] [place] [facility] [address] [id number] [place] [address]- 94[address] Nov, [facility] [place] [facility] [address] [id number] [place] [address]- [address] Nov, [facility] [place] [facility] [address] [id number] [place] [address]- [address] Nov, [facility] [place] [facility] [address] [id number] [place] [address] 16[address] Nov, [facility] [place] [facility] [address] [id number] [place] [address]- 2838 Nov, [facility] [place] [facility] [address] [id number] [place] [address]- 9029 Nov, [facility] [place] [facility] [address] [id number] [place] [address] Nov, [facility] [place] [facility] [address] [id number] [place] [address]- 6[address] Nov, [facility] [place] [facility] [address] [id number] [place] [address]- 3968 Nov, [facility] [place] [facility] [address] [id number] [place] [address]- [address]457 Nov, [facility] [place] [facility] [address] [id number] [place] [address]- 8383 Nov, [facility] [place] [facility] [address] [id number] [place] [address]- [address] Nov, [facility] [place] [facility] [address] [id number] [place] [address]- 4[address] Nov, [facility] [place] [facility] [address] [id number] [place] [address]- [address] Nov, [facility] [place] [facility] [address] [id number] [place] [address]- [address] Nov, [facility] [place] [facility] [address] [id number] [place] [address]- [address] Nov, [facility] [place] [facility] [address] [id number] [place] [address]- [address]21 Oct, [facility] [place] [facility] [address] [id number] [place] [address]- [address] Oct, [facility] [place] [facility] [address] [id number] [place] [address]- [address] Oct, [facility] [place] [facility] [address] [address] [id number] [place] [address] Oct, [facility] [place] [facility] [address] [id number] [place] [address] 96[address] Oct, [facility] [place] [facility] [address] [id number] [place] [address] 7844 Oct, [facility] [place] [facility] [address] [id number] [place] [address]- 3589 Oct, [facility] [place] [facility] [address] [id number] [place] [address]- 1669 Oct, [facility] [place] [facility] [address] [id number] [place] [address] 6683 15 Oct, 2013 [facility] [place] [facility] [address] [id number] [place] [address]- 4704 14 Oct, 2013 [facility] [place] [facility] [address] [id number] [place] [address]- 2392 Oct, [facility] [place] [facility] [address] [id number] [place] [address]- 8400 Oct, [facility] [place] [facility] [address] [id number] [place] [address]- 9988 Oct, [facility] [place] [facility] [address] [id number] [place] [address]- 7593 Oct, [facility] [place] [facility] [address] [id number] [place] [address]- 5860 Oct, [facility] [place] [facility] [address] [id number] [place] [address]- 7800 Sep, [facility] [place] [facility] [address] [id number] [place] [address]- 8069 Sep, [facility] [place] [facility] [address] [id number] [place] [address]- 0593 Sep, [facility] [place] [facility] [address] [id number] [place] [address]- 0072 Sep, [facility] [place] [facility] [address] [id number] [place] [address]- 7253 Sep, [facility] [place] [facility] [address] [id number] [place] [address]- 4058 Sep, [facility] [place] [facility] [address] [id number] [place] [address]- 3040 Sep, [facility] [place] [facility] [address] [id number] [place] [address]- 7865 Sep, [facility] [place] [facility] [address] [id number] [place] [address]- 7815 17 Sep, 2013 [facility] [place] [facility] [address] [id number] [place] [address]- 3900 Sep, [facility] [place] [facility] [address] [id number] [place] [address]- 3541 Sep, [facility] [place] [facility] [address] [id number] [place] [address]- 7327 Sep, [facility] [place] [facility] [address] [id number] [place] [address]- 3105 Sep, [facility] [place] [facility] [address] [id number] [place] [address]- 1624 Sep, [facility] [place] [facility] [address] [id number] [place] [address]- 5593 Sep, [facility] [place] [facility] [address] [id number] [place] [address]- 3579 Sep, [facility] [place] [facility] [address] [id number] [place] [address]- 8741 Sep, [facility] [place] [facility] [address] [id number] [place] [address]- 0900 Sep, [facility] [place] [facility] [address] [id number] [place] [address]- 6394 Sep, [facility] [place] [facility] [address] [id number] [place] [address]- 9569 Sep, [facility] [place] [facility] [address] [id number] [place] [address]- 3467 Sep, [facility] [place] [facility] [address] [id number] [place] [address]- 7964 Sep, [facility] [place] [facility] [address] [id number] [place] [address]- 3313 August, [facility] [place] [facility] [address] [id number] [place] [address]- 0556 August, [facility] [place] [facility] [address] [id number] [place] [address]- 4412 August, [facility] [address] [id number] [place] [address] August, [facility] [place] [facility] [address] [id number] [place] [address]- 5938 August, [facility] [place] [facility] [address] [id number] [place] [address]- 7328 August, [facility] [place] [facility] [address] [id number] [place] [address]- 7503 August, [facility] [place] [facility] [address] [id number] [place] [address]- 5566 August, [facility] [place] [facility] [address] [id number] [place] [address]- 0363 August, [facility] [place] [facility] [address] [id number] [place] [address]- 9113 August, [facility] [place] [facility] [address] [id number] [place] [address]- 7947 August, [facility] [place] [facility] [address] [id number] [place] [address]- 5766 August, [facility] [place] [facility] [address] [id number] [place] [address]- 8802 August, [facility] [place] [facility] [address] [id number] [place] [address]- 9813 August, [facility] [place] [facility] [address] [id number] [place] [address]- 8532 August, [facility] [place] [facility] [address] [id number] [place] [address]- 6586 August, [facility] [place] [facility] [address] [id number] [place] [address]- 4226 August, [facility] [place] [facility] [address] [id number] [place] [address]- 8841 August, [facility] [place] [facility] [address] [id number] [place] [address]- 8054 Jul, [facility] [address] [id number] [place] [address]- 5486 Jul, [facility] [address] [id number] [place] [address]- 2480 Jul, [facility] [address] [id number] [place] [address]- 6015 Jul, [facility] [address] [id number] [place] [address]- 2700 Jul, [facility] [address] [id number] [place] [address]- 8615 Jul, [facility] [address] [id number] [place] [address]- 4600 Jul, [facility] [address] [id number] [place] [address]- 2945 Jul, [facility] [address] [id number] [place] [address]- 8133 Jul, [facility] [address] [id number] [place] [address]- 4386 Jul, [facility] [address] [id number] [place] [address]- 2520 Jul, [facility] [place] [facility] [address] [id number] [place] [address]- 2924 Jul, [facility] [address] [id number] [place] [address]- 5290 Jul, [facility] [place] [facility] [address] [id number] [place] [address]- 7870 Jul, [facility] [place] [facility] [address] [id number] [place] [address]- 6319 Jul, [facility] [place] [facility] [address] [id number] [place] [address]- 8857 Jul, [facility] [place] [facility] [address] [id number] [place] [address]- 4007 17 Jul, 2013 [facility] [place] [facility] [address] [id number] [place] [address]- 2097 16 Jul, 2013 [facility] [place] [facility] [address] [id number] [place] [address]- 9323 16 Jul, 2013 [facility] [place] [facility] [address] [id number] [place] [address]- 4401 15 Jul, 2013 [facility] [place] [facility] [address] [id number] [place] [address]- 8069 15 Jul, 2013 [facility] [place] [facility] [address] [id number] [place] [address]- 8937 14 Jul, 2013 [facility] [place] [facility] [address] [id number] [place] [address]- 2713 14 Jul, 2013 [facility] [place] [facility] [address] [id number] [place] [address]- 4550 12 Jul, 2013 [facility] [place] [facility] [address] [id number] [place] [address]- 9461 Jul, [facility] [place] [facility] [address] [id number] [place] [address]- 5893 Jul, [facility] [place] [facility] [address] [id number] [place] [address]- 5889 Jul, [facility] [place] [facility] [address] [id number] [place] [address]- 1785 Jul, [facility] [place] [facility] [address] [id number] [place] [address]- 3343 Jul, [facility] [place] [facility] [address] [id number] [place] [address]- 7125 Jun, [facility] [place] [facility] [address] [id number] [place] 4[address] Jun, [facility] [place] [facility] [address] [id number] [place] [address]- 5172 17 Jun, 2013 [facility] [place] [facility] [address] [id number] [place] [address]- 4407 17 Jun, 2013 [facility] [place] [facility] [address] [id number] [place] [address]- 3525 13 Jun, 2013 [facility] [place] [facility] [address] [id number] [place] [address]- 6088 13 Jun, 2013 [facility] [place] [facility] [address] [id number] [place] [address]- 0182 11 Jun, 2013 [facility] [place] [facility] [address] [id number] [place] [address]- 5941 11 Jun, 2013 [facility] [place] [facility] [address] [id number] [place] [address]- 1199 10 Jun, 2013 [facility] [place] [facility] [address] [facility] [id number] [place] [address]- 9856 Jun, [facility] [place] [facility] [address] [facility] [id number] [place] [address]- 0567 Jun, [facility] [place] [facility] [address] [id number] [place] [address]- 6687 Jun, [facility] [place] [facility] [address] [facility] [id number] [place] [address]- 0057 May, [facility] [place] [facility] [address] [id number] [place] [address]- 4795 May, [facility] [place] [facility] [address] [id number] [place] [address]- 4294 May, [facility] [place] [facility] [address] [id number] [place] [address]- 5653 May, [facility] [place] [facility] [address] [id number] [place] [address]- 2266 May, [facility] [place] [facility] [address] [id number], [place] [address]- 6854 May, [facility] [place] [facility] [address] [id number] [place] [address]- 9274 May, [facility] [place] [facility] [address] [id number] [place] [address]- 6377 May, [facility] [place] [facility] [address] [id number] [place] [address]- 8966 May, [facility] [place] [facility] [address] [id number] [place] [address]- 7943 May, [facility] [place] [facility] [address] [id number] [place] [address]- 6041 Apr, [facility] [place] [facility] [address] [id number] [place] [address]- 4001 Apr, [facility] [place] [facility] [address] [id number] [place] [address]- 6873 Apr, [facility] [place] [facility] [address] [id number] [place] [address]- 9044 Apr, [facility] [place] [facility] [address] [id number] [place] [address]- 8983 Apr, [facility] [place] [facility] [address] [id number] [place] [address]- 3765 Apr, [facility] [place] [facility] [address] [id number] [place] [address]- 5986 Apr, [facility] [place] [facility] [address] [id number], [place] [address]- 9830 Apr, [facility] [place] [facility] [address] [id number] [place] [address]- 3259 Apr, [facility] [place] [facility] [address] [id number] [place] [address]- 2355 Apr, [facility] [place] [facility] [address] [id number] [place] [address]- 5737 Mar, [facility] [place] [facility] [address] [id number], [place] [address]- 2901 Mar, [facility] [place] [facility] [address] [id number] [place] [address]- 7217 Mar, [facility] [place] [facility] [address] [id number], [place] [address]- 2855 Mar, [facility] [place] [facility] [address] [facility] [id number] [place] [address]- 3230 Mar, [facility] [place] [facility] [address] [id number], [place] [address]- 8904 Mar, [facility] [place] [facility] [address] [id number] [place] [address]- 1169 Feb, [facility] [place] [facility] [address] [id number] [place] [address]- 7357 Feb, [facility] [place] [facility] [address] [facility] [id number], [place] [address]- 0479 Feb, [facility] [place] [facility] [address] [id number], [place] [address]- 7751 30 Jan, 2013 [facility] [place] [facility] [address] [facility] [id number], [place] [address]- 8426 30 Jan, 2013 [facility] [place] [facility] [address] [facility] [id number], [place] [address]- 2520 Jan, [facility] [place] [facility] [address] [id number], [place] [address]- 7675 28 Jan, 2013 [facility] [place] [facility] [address] [id number], [place] [address]- 0295 15 Jan, 2013 [facility] [place] [facility] [address] [id number], [place] [address]- 9512 15 Jan, 2013 [facility] [place] [facility] [address] [facility] [id number], [place] [address]- 1719 Jan, [facility] [place] [facility] [address] [facility] [id number], [place] [address]- 3832 Jan, [facility] [place] [facility] [address] [id number] [place] [address]- 8251 Jan, [facility] [place] [facility] [address] [id number] [place] [address]- 9386 Jan, [facility] [place] [facility] [address] [id number] [place] [address] 2546 30 Dec, 2012 [facility] [place] [facility] [address] [id number] [place] [address]- 2616 25 Dec, 2012 [facility] [place] [facility] [address] [id number] [place] [address] 2549 11 Dec, 2012 [facility] [place] [facility] [address] [id number] [place] [address]- 1366 Dec, 2012 [facility] [place] [facility] [address] [id number] [place] [address]- 7846 05 Dec, 2012 [facility] [place] [facility] [address] [id number] [place] [address]- 9526 Dec, [facility] [place] [facility] [address] [id number] [place] [address]- 0208 Nov, [facility] [place] [facility] [address] [id number] [place] [address]- 3953 Nov, [facility] [place] [facility] [address] [id number] [place] [address]- 0300 Nov, [facility] [place] [facility] [address] [id number] [place] [address] 2541 Nov, [facility] [place] [facility] [address] [id number] [place] [address] 2549 Nov, [facility] [place] [facility] [address] [id number] [place] [address] 2546 Nov, [facility] [place] [facility] [address] [id number] [place] [address]- 2542 Nov, [facility] [place] [facility] [address] [id number] [place] [address]- 8529 Nov, [facility] [address] [id number] [place] [address]- 9342 Nov, [facility] [place] [facility] [address] [id number] [place] [address]- 4316 Nov, [facility] [place] [facility] [address] [id number] [place] [address]- 5981 Nov, [facility] [place] [facility] [address] [id number] [place] [address]- 8164 Nov, [facility] [address] [id number] [place] [address]- 0521 Oct, [facility] [place] [facility] [address] [id number] [place] [address]- 1442 Oct, [facility] [place] [facility] [address] [id number] [place] [address]- 2719 Oct, [facility] [place] [facility] [address] [id number] [place] [address]- 4797 Sep, [facility] [place] [facility] [address] [id number] [place] [address]- 9894 Sep, [facility] [place] [facility] [address] [id number] [place] [address]- 5148 Sep, [facility] [place] [facility] [address] [id number] [place] [address]- 7360 August, [facility] [place] [facility] [address] [id number] [place] [address]- 9357 August, [facility] [place] [facility] [address] [id number] [place] [address]- 6800 August, [facility] [place] [facility] [address] [id number] [place] [address]- 1681 August, [facility] [place] [facility] [address] [id number] [place] [address]- 5728 August, [facility] [place] [facility] [address] [id number] [place] [address]- 2604 August, [facility] [address] [id number] [place] [address]- 6054 30 Jul, 2012 [facility] [place] [facility] [address] [id number] [place] [address]- 5785 15 Jul, 2012 [facility] [address] [id number] [place] [address]- 1691 Jul, [facility] [address] [id number] [place] [address]- 6935 Jul, [facility] [address] [id number] [place] [address]- 5028 Jul, [facility] [address] [id number] [place] [address]- 2729 Jul, [facility] [address] [id number] [place] [address]- 0165 2012 [facility] [address] [id number] [place] [address]- 9296 20 Jun, 2012 [facility] [address] [id number] [place] [address]- 6788 18 Jun, 2012 [facility] [address] [facility] [id number] [place] [address]- 5965 14 Jun, 2012 [facility] [place] [facility] [address] [id number] [place] [address]- 4139 04 Jun, 2012 [facility] [place] [facility] [address] [id number] [place] [address]- 4338 May, [facility] [place] [facility] [address] [id number] [place] [address]- 7379 12 May, 2012 [facility] [place] [facility] [address] [id number] [place] [address]- 9975 May, [facility] [place] [facility] [address] [id number] [place] [address]- 2269 08 May, 2012 [facility] [place] [facility] [address] [id number] [place] [address]- 2716 Apr, [facility] [place] [facility] [address] [id number] [place] [address]- 3196 Apr, [facility] [place] [facility] [address] [id number] [place] [address]- 3876 Apr, [facility] [place] [facility] [address] [id number] [place] [address]- 6076 Mar, [facility] [place] [facility] [address] [id number] [place] [address]- 3176 Mar, [facility] [place] [facility] [address] [id number] [place] [address]- 4826 Mar, [facility] [place] [facility] [address] [id number] [place] [address]- 5736 Mar, [facility] [place] [facility] [address] [id number] [place] [address]- 4476 Mar, [facility] [place] [facility] [address] [id number] [place] [address]- 2996 Mar, [facility] [place] [facility] [address] [id number] [place] [address]- 8106 Mar, [facility] [place] [facility] [address] [id number] [place] [address]- 0596 Mar, [facility] [place] [facility] [address] [id number], [place] [address]- 2956 Feb, [facility] [place] [facility] [address] [id number] [place] [address]- 7436 Feb, [facility] [place] [facility] [address] [id number] [place] [address]- 8296 Feb, [facility] [place] [facility] [address] [id number] [place] [address]- 1126 Feb, [facility] [place] [facility] [address] [id number], [place] [address]- 9571 Feb, [facility] [place] [facility] [address] [id number] [place] [address]- 3485 Feb, [facility] [place] [facility] [address] [facility] [id number], [place] [address]- 6261 Feb, [facility] [place] [facility] [address] [facility] [id number] [place] [address]- 1755 Feb, [facility] [place] [facility] [address] [id number] [place] [address]- 4444 Feb, [facility] [place] [facility] [address] [facility] [id number] [place] [address], [place] [address]- 6901 Feb, [facility] [place] [facility] [address] [facility] [id number] [place] [address]- 4566 Feb, [facility] [place] [facility] [id number] [place] [address]- [address] Feb, [facility] [place] [facility] [address] [facility] [id number], [place] [address] 79[address] Feb, [facility] [place] [facility] [address] [id number] [place] [address] 4[address] Feb, [facility] [place] [facility] [address] [id number], [place] [address] Feb, [facility] [place] [facility] [address] [facility] [id number], [place] [address] Feb, [facility] [place] [facility] [address] [facility] [id number], [place] [address] Feb, [facility] [place] [facility] [address] [facility] [id number], [place] [address]- 20[address] Feb, [facility] [place] [facility] [address] [facility] [id number], [place] [address] 47[address] Jan, [facility] [place] [facility] [address] [id number], [place] [address] Jan, [facility] [place] [facility] [address] [id number] [place] [address]- 9627 22 Jan, 2012 [facility] [place] [facility] [address] [id number] [place] [address]- [address] 20 Jan, 2012 [facility] [place] [facility] [address] [id number] [place] [address]- 8445 20 Jan, 2012 [facility] [place] [facility] [address] [id number] [place] [address]- 7842 19 Jan, 2012 [facility] [place] [facility] [address] [id number] [place] [address]- 8699 18 Jan, 2012 [facility] [place] [facility] [address] [id number] [place] [address]- 8619 18 Jan, 2012 [facility] [place] [facility] [address] [id number] [place] [address]- 0087 15 Jan, 2012 [facility] [place] [facility] [address] [id number] [place] [address]- 2248 15 Jan, 2012 [facility] [place] [facility] [address] [id number] [place] [address]- 1221 11 Jan, 2012 [facility] [place] [facility] [address] [id number] [place] [address]- 6820 11 Jan, 2012 [facility] [place] [facility] [address] [id number] [place] [address]- 6644 10 Jan, 2012 [facility] [place] [facility] [address] [id number] [place] [address]- 5788 09 Jan, 2012 [facility] [place] [facility] [address] [id number] [place] [address]- 5285 02 Jan, 2012 [facility] [place] [facility] [address] [id number] [place] [address]- 9356 29 Dec, 2011 [facility] [place] [facility] [address] [id number] [place] [address]- 6536 28 Dec, 2011 [facility] [place] [facility] [address] [id number] [place] [address]- 7753 Dec, [facility] [place] [facility] [address] [id number] [place] [address]- 5425 Dec, [facility] [place] [facility] [address] [id number] [place] [address]- 1444 Nov, [facility] [place] [facility] [address] [id number] [place] [address]- 2041 Nov, [facility] [place] [facility] [address] [id number] [place] [address]- 7691 Nov, [facility] [place] [facility] [address] [id number] [place] [address]- 2206 Nov, [facility] [place] [facility] [address] [id number] [place] [address]- 6826 Nov, [facility] [place] [facility] [address] [id number] [place] [address]- 7208 Nov, [facility] [place] [facility] [address] [id number] [place] [address]- 7285 Nov, [facility] [place] [facility] [address] [id number] [place] [address]- 7625 Nov, [facility] [place] [facility] [address] [id number] [place] [address]- 5145 Nov, [facility] [place] [facility] [address] [id number] [place] [address]- 7133 Nov, [facility] [place] [facility] [address] [id number] [place] [address]- 7178 Nov, [facility] [place] [facility] [address] [id number] [place] [address]- 0965 Oct, [facility] [place] [facility] [address] [id number] [place] [address]- 6396 Oct, [facility] [place] [facility] [address] [id number] [place] [address]- 3607 Oct, [facility] [place] [facility] [address] [id number] [place] [address]- 0887 Oct, [facility] [place] [facility] [address] [id number] [place] [address]- 0603 Oct, [facility] [place] [facility] [address] [id number] [place] [address]- 8426 Oct, [facility] [place] [facility] [address] [id number] [place] [address]- 9156 Oct, [facility] [place] [facility] [address] [id number] [place] [address]- 4954 Oct, [facility] [place] [facility] [address] [id number] [place] [address]- 6125 Sep, [facility] [place] [facility] [address] [id number] [place] [address]- 6819 Sep, [facility] [place] [facility] [address] [id number] [place] [address]- 1610 Sep, [facility] [place] [facility] [address] [id number] [place] [address]- 4523 Sep, [facility] [place] [facility] [address] [id number] [place] [address]- 9563 Sep, [facility] [place] [facility] [address] [id number] [place] [address]- 0587 Sep, [facility] [place] [facility] [address] [id number] [place] [address]- 3100 Sep, [facility] [place] [facility] [address] [id number] [place] [address]- 3448 August, [facility] [place] [facility] [address] [id number] [place] [address]- 6442 August, [facility] [place] [facility] [address] [id number] [place] [address]- 5861 August, [facility] [place] [facility] [address] [id number] [place] [address]- 7858 August, [facility] [place] [facility] [address] [id number] [place] [address]- 5896 August, [facility] [address] [id number] [place] [address]- 9121 August, [facility] [address] [id number] [place] [address]- 4826 August, [facility] [address] [id number] [place] [address]- 2777 August, [facility] [address] [id number] [place] [address]- 3497 Jul, [facility] [address] [id number] [place] [address]- 2697 Jul, [facility] [address] [id number] [place] [address]- 4202 Jul, [facility] [address] [id number] [place] [address]- 1150 Jul, [facility] [address] [id number] [place] [address]- 6545 Jul, [facility] [address] [id number] [place] [address]- 7915 28 Jun, 2011 [facility] [address] [id number] [place] [address]- 8289 Jun, [facility] [facility] [address] [id number] [place] [address] Jun, [facility] [address] [id number] [place] [address] 19 Jun, 2011 [facility] [place] [facility] [address] [id number] [place] [address] Jun, [facility] [place] [facility] [address] [id number] [place] [address] Jun, [facility] [address] [id number] [place] [address] Jun, [facility] [address] [id number] [place] [address] Jun, [facility] [place] [facility] [address] [id number] [place] [address] Jun, [facility] [place] [facility] [address] [id number] [place] [address] May, [facility] [place] [facility] [address] [id number] [place] [address] May, [facility] [place] [facility] [address] [id number] [place] [address] May, [facility] [place] [facility] [address] [id number] [place] [address] May, [facility] [address] [id number] [place] [address] May, [facility] [place] [facility] [address] [id number] [place] [address] May, [facility] [place] [facility] [address] [id number] [place] [address] May, [facility] [place] [facility] [address] [facility] [id number] [place] [address] May, [facility] [place] [facility] [address] [id number] [place] [address] Apr, [facility] [place] [facility] [address] [id number] [place] [address] Apr, [facility] [place] [facility] [address] [id number] [place] [address] Apr, [facility] [place] [facility] [address] [id number] [place] [address] Apr, [facility] [place] [facility] [address] [facility] [id number], [place] [address] Apr, [facility] [place] [facility] [address] [id number] [place] [address] Apr, [facility] [address] [id number] [place] [address] Mar, [facility] [address] [id number] [place] [address] Mar, [facility] [address] [id number] [place] [address] 98[address] Mar, [facility] [address] [id number] [place] [address] Mar, [facility] [address] [id number] [place] [address] Mar, [facility] [address] [id number] [place] [address] Mar, [facility] [address] [id number] [place] [address]69 Mar, [facility] [address] [id number] [place] [address] Mar, [facility] [address] [id number] [place] [address] Mar, [facility] [address] [id number] [place] [address] Mar, [facility] [address] [id number] [place] [address] 1994 Mar, [facility] [place] [facility] [address] [id number] [place] [address] Mar, [facility] [place] [facility] [address] [id number] [place] [address] Mar, [facility] [place] [facility] [address] [id number] [place] [address] Feb, [facility] [place] [facility] [address] [id number] [place] [address] Feb, [facility] [place] [facility] [address] [id number] [place] [address] Feb, [facility] [place] [facility] [address] [id number] [place] [address] 95[address] Feb, [facility] [place] [facility] [address] [id number] [place] [address] Feb, [facility] [place] [facility] [address] [id number] [place] [address] Feb, [facility] [place] [facility] [address] [id number] [place] [address] Feb, [facility] [place] [facility] [address] [id number] [place] [address] Jan, [facility] [place] [facility] [address] [id number] [place] [address] Jan, [facility] [place] [facility] [address] [id number] [place] [address] Jan, [facility] [place] [facility] [address] [id number] [place] [address] Nov, [facility] [place] [facility] [address] [id number] [place] [address] Mar, [facility] [place] [facility] [address] [id number] [place] [address] Mar, [facility] [place] [facility] [address] [id number] [place] [address] 20 Mar, 2010 [facility] [place] [facility] [address] [id number] [place] [address] 13 Mar, 2010 [facility] [place] [facility] [address] [id number] [place] [address] 07 Mar, 2010 [facility] [place] [facility] [address] [id number] [place] [address] 30 Feb, 2010 [facility] [place] [facility] [address] [facility] [id number] [place] [address] 30 Feb, 2010 [facility] [address] [facility] [id number], [place] [address] 24 Feb, 2010 [facility] [address] [facility] [id number] [place] [address] 19 Feb, 2010 [facility] [address] [facility] [id number], [place] [address] 19 Feb, 2010 [facility] [address] [facility] [id number] [place] [address] 15 Feb, 2010 IMMUNIZATIONS No Known Immunizations SOCIAL HISTORY Never Assessed REASON FOR VISIT question PLAN OF CARE VITAL SIGNS MEDICATIONS Unknown [...] Mastectomy 02/01/2017 Hospitalization History surgeries Hospitalization History [facility] ED 10/06/2017
--- OUTSIDE RECORDS SUMMARY | 2017-12-22 03:56 | XMS REPORT ---
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 [id number] [place] [address]- 2297 Jun, [facility] [place] [facility] [address] [id number] [place] [address]- 6975 Jun, [facility] [place] [facility] [address] [id number], [place] [address]- 9420 19 Jun, 2014 [facility] [place] [facility] [address] [id number] [place] [address]- 5185 18 Jun, 2014 [facility] [place] [facility] [address] [id number] [place] [address]- 6937 18 Jun, 2014 [facility] [place] [facility] [address] [id number] [place] [address]- 1102 18 Jun, 2014 [facility] [place] [facility] [address] [id number] [place] [address]- 2032 18 Jun, 2014 [facility] [place] [facility] [address] [id number] [place] [address]- 1465 17 Jun, 2014 [facility] [place] [facility] [address] [id number] [place] [address]- 9866 17 Jun, 2014 [facility] [place] [facility] [address] [id number] [place] [address]- 7483 17 Jun, 2014 [facility] [place] [facility] [address] [id number] [place] [address]- 4368 17 Jun, 2014 [facility] [place] [facility] [address] [id number] [place] [address]- 1634 13 Jun, 2014 [facility] [place] [facility] [address] [id number] [place] [address]- 6183 13 Jun, 2014 [facility] [place] [facility] [address] [id number] [place] [address]- 8516 12 Jun, 2014 [facility] [place] [facility] [address] [id number] [place] [address]- 8392 12 Jun, 2014 [facility] [place] [facility] [address] [id number] [place] [address]- 8074 10 Jun, 2014 [facility] [place] [facility] [address] [id number] [place] [address]- 0699 10 Jun, 2014 [facility] [place] [facility] [address] [id number] [place] [address]- 2669 10 Jun, 2014 [facility] [place] [facility] [address] [id number] [place] [address]- 7612 10 Jun, 2014 [facility] [place] [facility] [address] [id number] [place] [address]- 9217 06 Jun, 2014 [facility] [place] [facility] [address] [id number] [place] [address]- 4890 06 Jun, 2014 [facility] [place] [facility] [address] [id number] [place] [address]- 9689 Jun, 2014 [facility] [place] [facility] [address] [id number] [place] [address]- 9899 Jun, 2014 [facility] [place] [facility] [address] [id number] [place] [address]- 9237 Jun, 2014 [facility] [place] [facility] [address] [id number] [place] [address]- 0202 Jun, [facility] [place] [facility] [address] [id number] [place] [address]- 5152 May, 2014 [facility] [place] [facility] [address] [id number] [place] [address]- 1092 May, 2014 [facility] [place] [facility] [address] [id number] [place] [address]- 0187 May, 2014 [facility] [place] [facility] [address] [facility] [id number] [place] [address]- 5114 May, 2014 [facility] [place] [facility] [address] [facility] [id number] [place] [address]- 7918 May, 2014 [facility] [place] [facility] [address] [facility] [id number] [place] [address]- 2896 May, 2014 [facility] [place] [facility] [address] [facility] [id number] [place] [address]- 2809 May, 2014 [facility] [place] [facility] [address] [facility] [id number] [place] [address]- 8296 May, 2014 [facility] [place] [facility] [address] [facility] [id number] [place] [address]- 7438 May, 2014 [facility] [place] [facility] [address] [id number] [place] [address]- 4107 May, 2014 [facility] [place] [facility] [address] [facility] [id number] [place] [address]- 4371 May, 2014 [facility] [place] [facility] [address] [facility] [id number] [place] [address]- 8517 May, 2014 [facility] [place] [facility] [address] [id number] [place] [address]- 3068 May, 2014 [facility] [place] [facility] [address] [id number] [place] [address]- 1905 May, [facility] [place] [facility] [address] [id number] [place] [address]- 8480 May, [facility] [place] [facility] [address] [id number] [place] [address]- 8739 May, [facility] [place] [facility] [address] [id number] [place] [address]- 4096 Apr, [facility] [place] [facility] [address] [id number] [place] [address]- 6528 Apr, [facility] [place] [facility] [address] [id number] [place] [address]- 5460 Apr, [facility] [place] [facility] [address] [id number] [place] [address]- 2541 Apr, [facility] [place] [facility] [address] [id number] [place] [address]- 3314 Apr, [facility] [place] [facility] [address] [id number] [place] [address]- 8293 Apr, [facility] [place] [facility] [address] [id number] [place] [address]- 6290 Apr, [facility] [place] [facility] [address] [id number] [place] [address]- 6729 Apr, [facility] [place] [facility] [address] [id number] [place] [address]- 3212 Apr, [facility] [place] [facility] [address] [id number] [place] [address]- 6357 Apr, [facility] [place] [facility] [address] [id number] [place] [address]- 5584 Apr, [facility] [place] [facility] [address] [id number] [place] [address]- 8451 Apr, [facility] [place] [facility] [address] [id number] [place] [address]- 3517 Apr, [facility] [place] [facility] [address] [id number] [place] [address]- 0266 Apr, [facility] [place] [facility] [address] [id number] [place] [address]- 5216 Apr, [facility] [place] [facility] [address] [id number] [place] 1743 Mar, [facility] [place] [facility] [address] [id number] [place] [address]- 9191 Mar, [facility] [place] [facility] [address] [id number] [place] [address]- 7214 Mar, [facility] [place] [facility] [address] [id number] [place] [address]- 6323 Mar, [facility] [place] [facility] [address] [id number] [place] [address]- 8785 Mar, [facility] [place] [facility] [address] [id number] [place] [address] Mar, [facility] [place] [facility] [address] [id number] [place] [address] 15 Mar, 2014 [facility] [place] [facility] [address] [id number] [place] [address] 15 Mar, 2014 [facility] [place] [facility] [address] [id number] [place] [address] 15 Mar, 2014 [facility] [place] [facility] [address] [id number] [place] [address] 15 Mar, 2014 [facility] [place] [facility] [address] [id number] [place] [address] 15 Mar, 2014 [facility] [place] [facility] [address] [id number] [place] [address] 15 Mar, 2014 [facility] [place] [facility] [address] [id number] [place] [address]- [address] Mar, [facility] [place] [facility] [address] [id number] [place] [address] Mar, [facility] [place] [facility] [address] [id number] [place] [address]- [address] Mar, [facility] [place] [facility] [address] [id number] [place] [address]- [address] Mar, [facility] [place] [facility] [address] [id number] [place] [address] Mar, [facility] [place] [facility] [address] [id number] [place] [address] Mar, [facility] [place] [facility] [address] [id number] [place] [address]- [address] Feb, [facility] [place] [facility] [address] [id number] [place] [address]- [address] Feb, [facility] [place] [facility] [address] [id number] [place] [address]- [address] Feb, [facility] [place] [facility] [address] [id number] [place] [address]- [address] Feb, [facility] [place] [facility] [address] [facility] [id number] [place] [address]- [address] Feb, [facility] [place] [facility] [address] [id number] [place] [address] Feb, [facility] [place] [facility] [address] [id number] [place] [address]- [address] Feb, [facility] [place] [facility] [address] [id number] [place] [address] Feb, [facility] [place] [facility] [address] [id number] [place] [address]- [address] Jan, [facility] [place] [facility] [address] [id number] [place] [address]- [address] Jan, [facility] [place] [facility] [address] [id number] [place] [address]- [address] Jan, [facility] [place] [facility] [address] [id number] [place] [address]- [address] Jan, [facility] [place] [facility] [address] [id number] [place] [address] Jan, [facility] [place] [facility] [address] [id number] [place] [address] Jan, [facility] [place] [facility] [address] [id number] [place] [address]- [address] Jan, [facility] [place] [facility] [address] [id number] [place] [address]- [address] Jan, [facility] [place] [facility] [address] [id number] [place] [address]- [address] Jan, [facility] [place] [facility] [address] [id number] [place] [address]- [address] Jan, [facility] [place] [facility] [address] [id number] [place] [address]- [address] Jan, [facility] [place] [facility] [address] [id number], [place] [address] Jan, [facility] [place] [facility] [address] [id number], [place] [address] Jan, [facility] [place] [facility] [address] [id number], [place] [address] Jan, [facility] [place] [facility] [address] [id number], [place] [address] Jan, [facility] [place] [facility] [address] [id number], [place] [address] 16 Jan, 2014 [facility] [place] [facility] [address] [id number], [place] [address] 13 Jan, 2014 [facility] [place] [facility] [address] [id number], [place] [address] 13 Jan, 2014 [facility] [place] [facility] [address] [id number] [place] [address] 29 Sep, 2013 [facility] [place] [facility] [address] [id number] [place] [address]46 29 Dec, 2013 [facility] [place] [facility] [address] [id number] [place] [address]46 26 Dec, 2013 [facility] [place] [facility] [address] [id number] [place] [address]47 26 Dec, 2013 [facility] [place] [facility] [address] [id number] [place] [address]- [address] 26 Dec, 2013 [facility] [place] [facility] [address] [id number] [place] [address]- [address] 26 Dec, 2013 [facility] [place] [facility] [address] [id number] [place] [address]- [address] 23 Dec, 2013 [facility] [place] [facility] [address] [id number] [place] [address]- [address] 23 Dec, 2013 [facility] [place] [facility] [address] [id number] [place] [address] 2541 22 Dec, 2013 [facility] [place] [facility] [address] [id number] [place] [address] 2547 22 Dec, 2013 [facility] [place] [facility] [address] [id number], [place] [address] 16 Dec, 2013 [facility] [place] [facility] [address] [id number] [address] 16 Dec, 2013 [facility] [place] [facility] [address] [id number], [place] [address] 2546 15 Dec, 2013 [facility] [place] [facility] [address] [id number] [place] [address] 2546 15 Dec, 2013 [facility] [place] [facility] [address] [id number] [place] [address]- 2548 09 Dec, 2013 [facility] [place] [facility] [address] [id number] [place] [address] 2832 Dec, [facility] [place] [facility] [address] [id number] [place] [address]- 0336 Dec, [facility] [place] [facility] [address] [id number] [place] [address]- 9411 Nov, [facility] [place] [facility] [address] [id number] [place] [address]- 3819 Nov, [facility] [place] [facility] [address] [id number] [place] [address]- 5967 Nov, [facility] [place] [facility] [address] [id number] [place] [address]- 4655 Nov, [facility] [place] [facility] [address] [id number] [place] [address]- 6399 Nov, [facility] [place] [facility] [address] [id number] [place] [address]- 2326 Nov, [facility] [place] [facility] [address] [id number] [place] [address]- 1634 Nov, [facility] [place] [facility] [address] [id number] [place] [address]- 4862 Nov, [facility] [place] [facility] [address] [id number] [place] [address]- 9638 Nov, [facility] [place] [facility] [address] [id number] [place] [address]- 2430 Nov, [facility] [place] [facility] [address] [id number] [place] [address]- 0073 Nov, [facility] [place] [facility] [address] [id number] [place] [address]- 2440 Nov, [facility] [place] [facility] [address] [id number] [place] [address]- 8339 Nov, [facility] [place] [facility] [address] [id number] [place] [address]- 7993 Nov, [facility] [place] [facility] [address] [id number] [place] [address]- 8655 Nov, [facility] [place] [facility] [address] [id number] [place] [address]- 4541 Nov, [facility] [place] [facility] [address] [id number] [place] [address]- 4365 Nov, [facility] [place] [facility] [address] [id number] [place] [address]- 2879 Nov, [facility] [place] [facility] [address] [id number] [place] [address]- 0969 Nov, [facility] [place] [facility] [address] [id number] [place] [address]- 1571 Nov, [facility] [place] [facility] [address] [id number] [place] [address]- 7510 Nov, [facility] [place] [facility] [address] [id number] [place] [address]- 3665 Oct, [facility] [place] [facility] [address] [id number] [place] [address]- 3079 Oct, [facility] [place] [facility] [address] [id number] [place] [address]- 6463 Oct, [facility] [place] [facility] [address] [id number] [place] [address]- 1326 Oct, [facility] [place] [facility] [address] [id number] [place] [address]- 5238 Oct, [facility] [place] [facility] [address] [id number] [place] [address]- 2020 Oct, [facility] [place] [facility] [address] [id number] [place] [address]- 9751 Oct, [facility] [place] [facility] [address] [id number] [place] [address]- 3010 Oct, [facility] [place] [facility] [address] [id number] [place] [address]- 6971 15 Oct, 2013 [facility] [place] [facility] [address] [id number] [place] [address]- 5097 14 Oct, 2013 [facility] [place] [facility] [address] [id number] [place] [address]- 7325 Oct, [facility] [place] [facility] [address] [id number] [place] [address]- 4908 Oct, [facility] [place] [facility] [address] [id number] [place] [address]- 4243 Oct, [facility] [place] [facility] [address] [id number] [place] [address]- 1551 Oct, [facility] [place] [facility] [address] [id number] [place] [address]- 2292 Oct, [facility] [place] [facility] [address] [id number] [place] [address]- 3737 Sep, [facility] [place] [facility] [address] [id number] [place] [address]- 9103 Sep, [facility] [place] [facility] [address] [id number] [place] [address]- 2454 Sep, [facility] [place] [facility] [address] [id number] [place] [address]- 0328 Sep, [facility] [place] [facility] [address] [id number] [place] [address]- 1945 Sep, [facility] [place] [facility] [address] [id number] [place] [address]- 2142 Sep, [facility] [place] [facility] [address] [id number] [place] [address]- 1252 Sep, [facility] [place] [facility] [address] [id number] [place] [address]- 6852 Sep, [facility] [place] [facility] [address] [id number] [place] [address]- 7346 17 Sep, 2013 [facility] [place] [facility] [address] [id number] [place] [address]- 5320 Sep, [facility] [place] [facility] [address] [id number] [place] [address]- 8525 Sep, [facility] [place] [facility] [address] [id number] [place] [address]- 9573 Sep, [facility] [place] [facility] [address] [id number] [place] [address]- 2429 Sep, [facility] [place] [facility] [address] [id number] [place] [address]- 4985 Sep, [facility] [place] [facility] [address] [id number] [place] [address]- 3140 Sep, [facility] [place] [facility] [address] [id number] [place] [address]- 9024 Sep, [facility] [place] [facility] [address] [id number] [place] [address]- 7141 Sep, [facility] [place] [facility] [address] [id number] [place] [address]- 7696 Sep, [facility] [place] [facility] [address] [id number] [place] [address]- 7923 Sep, [facility] [place] [facility] [address] [id number] [place] [address]- 6601 Sep, [facility] [place] [facility] [address] [id number] [place] [address]- 7110 Sep, [facility] [place] [facility] [address] [id number] [place] [address]- 7075 Sep, [facility] [place] [facility] [address] [id number] [place] [address]- 4507 August, [facility] [place] [facility] [address] [id number] [place] [address]- 8321 August, [facility] [place] [facility] [address] [id number] [place] [address]- 4447 August, [facility] [address] [id number] [place] [address] August, [facility] [place] [facility] [address] [id number] [place] [address]- 1302 August, [facility] [place] [facility] [address] [id number] [place] [address]- 6898 August, [facility] [place] [facility] [address] [id number] [place] [address]- 1790 August, [facility] [place] [facility] [address] [id number] [place] [address]- 1271 August, [facility] [place] [facility] [address] [id number] [place] [address]- 6374 August, [facility] [place] [facility] [address] [id number] [place] [address]- 7188 August, [facility] [place] [facility] [address] [id number] [place] [address]- 7165 August, [facility] [place] [facility] [address] [id number] [place] [address]- 1293 August, [facility] [place] [facility] [address] [id number] [place] [address]- 1910 August, [facility] [place] [facility] [address] [id number] [place] [address]- 4258 August, [facility] [place] [facility] [address] [id number] [place] [address]- 7208 August, [facility] [place] [facility] [address] [id number] [place] [address]- 0542 August, [facility] [place] [facility] [address] [id number] [place] [address]- 7310 August, [facility] [place] [facility] [address] [id number] [place] [address]- 4366 August, [facility] [place] [facility] [address] [id number] [place] [address]- 1894 Jul, [facility] [address] [id number] [place] [address]- 1008 Jul, [facility] [address] [id number] [place] [address]- 6071 Jul, [facility] [address] [id number] [place] [address]- 6622 Jul, [facility] [address] [id number] [place] [address]- 1162 Jul, [facility] [address] [id number] [place] [address]- 2046 Jul, [facility] [address] [id number] [place] [address]- 2712 Jul, [facility] [address] [id number] [place] [address]- 6957 Jul, [facility] [address] [id number] [place] [address]- 9671 Jul, [facility] [address] [id number] [place] [address]- 7965 Jul, [facility] [address] [id number] [place] [address]- 1445 Jul, [facility] [place] [facility] [address] [id number] [place] [address]- 5918 Jul, [facility] [address] [id number] [place] [address]- 2333 Jul, [facility] [place] [facility] [address] [id number] [place] [address]- 5306 Jul, [facility] [place] [facility] [address] [id number] [place] [address]- 6193 Jul, [facility] [place] [facility] [address] [id number] [place] [address]- 0188 Jul, [facility] [place] [facility] [address] [id number] [place] [address]- 2841 17 Jul, 2013 [facility] [place] [facility] [address] [id number] [place] [address]- 8047 16 Jul, 2013 [facility] [place] [facility] [address] [id number] [place] [address]- 8580 16 Jul, 2013 [facility] [place] [facility] [address] [id number] [place] [address]- 1616 15 Jul, 2013 [facility] [place] [facility] [address] [id number] [place] [address]- 9068 15 Jul, 2013 [facility] [place] [facility] [address] [id number] [place] [address]- 2125 14 Jul, 2013 [facility] [place] [facility] [address] [id number] [place] [address]- 2730 14 Jul, 2013 [facility] [place] [facility] [address] [id number] [place] [address]- 0796 12 Jul, 2013 [facility] [place] [facility] [address] [id number] [place] [address]- 7237 Jul, [facility] [place] [facility] [address] [id number] [place] [address]- 7002 Jul, [facility] [place] [facility] [address] [id number] [place] [address]- 0375 Jul, [facility] [place] [facility] [address] [id number] [place] [address]- 9924 Jul, [facility] [place] [facility] [address] [id number] [place] [address]- 9992 Jul, [facility] [place] [facility] [address] [id number] [place] [address]- 3647 Jun, [facility] [place] [facility] [address] [id number] [place] [address]69 Jun, [facility] [place] [facility] [address] [id number] [place] [address]- 9641 17 Jun, 2013 [facility] [place] [facility] [address] [id number] [place] [address]- 0993 17 Jun, 2013 [facility] [place] [facility] [address] [id number] [place] [address]- 5191 13 Jun, 2013 [facility] [place] [facility] [address] [id number] [place] [address]- 3174 13 Jun, 2013 [facility] [place] [facility] [address] [id number] [place] [address]- 0184 11 Jun, 2013 [facility] [place] [facility] [address] [id number] [place] [address]- 2773 11 Jun, 2013 [facility] [place] [facility] [address] [id number] [place] [address]- 7780 10 Jun, 2013 [facility] [place] [facility] [address] [facility] [id number] [place] [address]- 9393 Jun, [facility] [place] [facility] [address] [facility] [id number] [place] [address]- 9772 Jun, [facility] [place] [facility] [address] [id number] [place] [address]- 1519 Jun, [facility] [place] [facility] [address] [facility] [id number] [place] [address]- 1124 May, [facility] [place] [facility] [address] [id number] [place] [address]- 3105 May, [facility] [place] [facility] [address] [id number] [place] [address]- 4118 May, [facility] [place] [facility] [address] [id number] [place] [address]- 0958 May, [facility] [place] [facility] [address] [id number] [place] [address]- 8698 May, [facility] [place] [facility] [address] [id number], [place] [address]- 8991 May, [facility] [place] [facility] [address] [id number] [place] [address]- 6882 May, [facility] [place] [facility] [address] [id number] [place] [address]- 0757 May, [facility] [place] [facility] [address] [id number] [place] [address]- 5234 May, [facility] [place] [facility] [address] [id number] [place] [address]- 9033 May, [facility] [place] [facility] [address] [id number] [place] [address]- 4693 Apr, [facility] [place] [facility] [address] [id number] [place] [address]- 8682 Apr, [facility] [place] [facility] [address] [id number] [place] [address]- 6882 Apr, [facility] [place] [facility] [address] [id number] [place] [address]- 4984 Apr, [facility] [place] [facility] [address] [id number] [place] [address]- 0857 Apr, [facility] [place] [facility] [address] [id number] [place] [address]- 4463 Apr, [facility] [place] [facility] [address] [id number] [place] [address]- 6482 Apr, [facility] [place] [facility] [address] [id number], [place] [address]- 7281 Apr, [facility] [place] [facility] [address] [id number] [place] [address]- 1845 Apr, [facility] [place] [facility] [address] [id number] [place] [address]- 3454 Apr, [facility] [place] [facility] [address] [id number] [place] [address]- 6795 Mar, [facility] [place] [facility] [address] [id number], [place] [address]- 3825 Mar, [facility] [place] [facility] [address] [id number] [place] [address]- 4108 Mar, [facility] [place] [facility] [address] [id number], [place] [address]- 1518 Mar, [facility] [place] [facility] [address] [facility] [id number] [place] [address]- 0088 Mar, [facility] [place] [facility] [address] [id number], [place] [address]- 1249 Mar, [facility] [place] [facility] [address] [id number] [place] [address]- 0263 Feb, [facility] [place] [facility] [address] [id number] [place] [address]- 9015 Feb, [facility] [place] [facility] [address] [facility] [id number], [place] [address]- 9304 Feb, [facility] [place] [facility] [address] [id number], [place] [address]- 4196 30 Jan, 2013 [facility] [place] [facility] [address] [facility] [id number], [place] [address]- 4447 30 Jan, 2013 [facility] [place] [facility] [address] [facility] [id number], [place] [address]- 5841 Jan, [facility] [place] [facility] [address] [id number], [place] [address]- 9846 28 Jan, 2013 [facility] [place] [facility] [address] [id number], [place] [address]- 5061 15 Jan, 2013 [facility] [place] [facility] [address] [id number], [place] [address]- 2232 15 Jan, 2013 [facility] [place] [facility] [address] [facility] [id number], [place] [address]- 9476 Jan, [facility] [place] [facility] [address] [facility] [id number], [place] [address]- 7097 Jan, [facility] [place] [facility] [address] [id number] [place] [address]- 5491 Jan, [facility] [place] [facility] [address] [id number] [place] [address]- 1696 Jan, [facility] [place] [facility] [address] [id number] [place] [address] 2546 30 Dec, 2012 [facility] [place] [facility] [address] [id number] [place] [address]- 1556 25 Dec, 2012 [facility] [place] [facility] [address] [id number] [place] [address] 2541 11 Dec, 2012 [facility] [place] [facility] [address] [id number] [place] [address]- 4006 Dec, 2012 [facility] [place] [facility] [address] [id number] [place] [address]- 9169 05 Dec, 2012 [facility] [place] [facility] [address] [id number] [place] [address]- 3960 Dec, [facility] [place] [facility] [address] [id number] [place] [address]- 5571 Nov, [facility] [place] [facility] [address] [id number] [place] [address]- 3616 Nov, [facility] [place] [facility] [address] [id number] [place] [address]- 4215 Nov, [facility] [place] [facility] [address] [id number] [place] [address] 2542 Nov, [facility] [place] [facility] [address] [id number] [place] [address] 2545 Nov, [facility] [place] [facility] [address] [id number] [place] [address] 2546 Nov, [facility] [place] [facility] [address] [id number] [place] [address]- 2543 Nov, [facility] [place] [facility] [address] [id number] [place] [address]- 2988 Nov, [facility] [address] [id number] [place] [address]- 5116 Nov, [facility] [place] [facility] [address] [id number] [place] [address]- 7398 Nov, [facility] [place] [facility] [address] [id number] [place] [address]- 6030 Nov, [facility] [place] [facility] [address] [id number] [place] [address]- 3686 Nov, [facility] [address] [id number] [place] [address]- 7798 Oct, [facility] [place] [facility] [address] [id number] [place] [address]- 7727 Oct, [facility] [place] [facility] [address] [id number] [place] [address]- 9507 Oct, [facility] [place] [facility] [address] [id number] [place] [address]- 7730 Sep, [facility] [place] [facility] [address] [id number] [place] [address]- 4064 Sep, [facility] [place] [facility] [address] [id number] [place] [address]- 3774 Sep, [facility] [place] [facility] [address] [id number] [place] [address]- 9525 August, [facility] [place] [facility] [address] [id number] [place] [address]- 3269 August, [facility] [place] [facility] [address] [id number] [place] [address]- 1628 August, [facility] [place] [facility] [address] [id number] [place] [address]- 2036 August, [facility] [place] [facility] [address] [id number] [place] [address]- 9790 August, [facility] [place] [facility] [address] [id number] [place] [address]- 4387 August, [facility] [address] [id number] [place] [address]- 2711 30 Jul, 2012 [facility] [place] [facility] [address] [id number] [place] [address]- 4576 15 Jul, 2012 [facility] [address] [id number] [place] [address] Jul, [facility] [address] [id number] [place] [address] Jul, [facility] [address] [id number] [place] [address] Jul, [facility] [address] [id number] [place] [address] Jul, [facility] [address] [id number] [place] [address] 2012 [facility] [address] [id number] [place] [address] 20 Jun, 2012 [facility] [address] [id number] [place] [address] 8787 18 Jun, 2012 [facility] [address] [facility] [id number] [place] [address] 14 Jun, 2012 [facility] [place] [facility] [address] [id number] [place] [address] 04 Jun, 2012 [facility] [place] [facility] [address] [id number] [place] [address] May, [facility] [place] [facility] [address] [id number] [place] [address] 12 May, 2012 [facility] [place] [facility] [address] [id number] [place] [address] May, [facility] [place] [facility] [address] [id number] [place] [address]31 08 May, 2012 [facility] [place] [facility] [address] [id number] [place] [address]- [address] Apr, [facility] [place] [facility] [address] [id number] [place] [address] 2966 Apr, [facility] [place] [facility] [address] [id number] [place] [address] Apr, [facility] [place] [facility] [address] [id number] [place] [address] Mar, [facility] [place] [facility] [address] [id number] [place] [address] Mar, [facility] [place] [facility] [address] [id number] [place] [address] Mar, [facility] [place] [facility] [address] [id number] [place] [address] Mar, [facility] [place] [facility] [address] [id number] [place] [address]- 09[address] Mar, [facility] [place] [facility] [address] [id number] [place] [address] Mar, [facility] [place] [facility] [address] [id number] [place] [address]- [address] Mar, [facility] [place] [facility] [address] [id number] [place] [address] Mar, [facility] [place] [facility] [address] [id number], [place] [address] Feb, [facility] [place] [facility] [address] [id number] [place] [address] Feb, [facility] [place] [facility] [address] [id number] [place] [address]- [address] Feb, [facility] [place] [facility] [address] [id number] [place] [address] 9216 Feb, [facility] [place] [facility] [address] [id number], [place] [address] Feb, [facility] [place] [facility] [address] [id number] [place] [address] 96[address] Feb, [facility] [place] [facility] [address] [facility] [id number], [place] [address] Feb, [facility] [place] [facility] [address] [facility] [id number] [place] [address]- 65[address] Feb, [facility] [place] [facility] [address] [id number] [place] [address] 68[address] Feb, [facility] [place] [facility] [address] [facility] [id number] [place] [address], [place] [address]- [address] Feb, [facility] [place] [facility] [address] [facility] [id number] [place] [address] Feb, [facility] [place] [facility] [id number] [place] [address] Feb, [facility] [place] [facility] [address] [facility] [id number], [place] [address] Feb, [facility] [place] [facility] [address] [id number] [place] [address] Feb, [facility] [place] [facility] [address] [id number], [place] [address] Feb, [facility] [place] [facility] [address] [facility] [id number], [place] [address] Feb, [facility] [place] [facility] [address] [facility] [id number], [place] [address] Feb, [facility] [place] [facility] [address] [facility] [id number], [place] [address] Feb, [facility] [place] [facility] [address] [facility] [id number], [place] [address] Jan, [facility] [place] [facility] [address] [id number], [place] [address] Jan, [facility] [place] [facility] [address] [id number] [place] [address]- 8[address] 22 Jan, 2012 [facility] [place] [facility] [address] [id number] [place] [address]- 1367 20 Jan, 2012 [facility] [place] [facility] [address] [id number] [place] [address]- 1226 20 Jan, 2012 [facility] [place] [facility] [address] [id number] [place] [address]- [address]151 19 Jan, 2012 [facility] [place] [facility] [address] [id number] [place] [address]- 1517 18 Jan, 2012 [facility] [place] [facility] [address] [id number] [place] [address]- 2086 18 Jan, 2012 [facility] [place] [facility] [address] [id number] [place] [address]- 6364 15 Jan, 2012 [facility] [place] [facility] [address] [id number] [place] [address]- 5328 15 Jan, 2012 [facility] [place] [facility] [address] [id number] [place] [address]- 7001 11 Jan, 2012 [facility] [place] [facility] [address] [id number] [place] [address]- 8583 11 Jan, 2012 [facility] [place] [facility] [address] [id number] [place] [address]- 7951 10 Jan, 2012 [facility] [place] [facility] [address] [id number] [place] [address]- 8073 09 Jan, 2012 [facility] [place] [facility] [address] [id number] [place] [address]- 8615 02 Jan, 2012 [facility] [place] [facility] [address] [id number] [place] [address]- 6196 29 Dec, 2011 [facility] [place] [facility] [address] [id number] [place] [address]- 5706 28 Dec, 2011 [facility] [place] [facility] [address] [id number] [place] [address]- 7319 Dec, [facility] [place] [facility] [address] [id number] [place] [address]- 0478 Dec, [facility] [place] [facility] [address] [id number] [place] [address]- 0430 Nov, [facility] [place] [facility] [address] [id number] [place] [address]- 5257 Nov, [facility] [place] [facility] [address] [id number] [place] [address]- 0214 Nov, [facility] [place] [facility] [address] [id number] [place] [address]- 6034 Nov, [facility] [place] [facility] [address] [id number] [place] [address]- 3168 Nov, [facility] [place] [facility] [address] [id number] [place] [address]- 2402 Nov, [facility] [place] [facility] [address] [id number] [place] [address]- 3905 Nov, [facility] [place] [facility] [address] [id number] [place] [address]- [address]395 Nov, [facility] [facility] [address] [id number] [place] [address] Nov, [facility] [place] [facility] [address] [id number] [place] [address] Nov, [facility] [place] [facility] [address] [id number] [place] [address] Nov, [facility] [place] [facility] [address] [id number] [place] [address] Oct, [facility] [place] [facility] [address] [id number] [place] [address] Oct, [facility] [place] [facility] [address] [id number] [place] [address] Oct, [facility] [place] [facility] [address] [id number] [place] [address] Oct, [facility] [place] [facility] [address] [id number] [place] [address] 47[address] Oct, [facility] [place] [facility] [address] [id number] [place] [address] Oct, [facility] [place] [facility] [address] [id number] [place] [address] Oct, [facility] [place] [facility] [address] [id number] [place] [address] Oct, [facility] [place] [facility] [address] [id number] [place] [address] Sep, [facility] [place] [facility] [address] [id number] [place] [address] Sep, [facility] [place] [facility] [address] [id number] [place] [address] Sep, [facility] [place] [facility] [address] [id number] [place] [address] Sep, [facility] [place] [facility] [address] [id number] [place] [address] 69[address] Sep, [facility] [place] [facility] [address] [id number] [place] [address]- [address]85 Sep, [facility] [address] [id number] [place] [address]- [address]60 Sep, [facility] [place] [address] [id number] [place] [address] August, [facility] [place] [facility] [address] [id number] [place] [address] August, [facility] [address] [id number] [place] [address]- [address] August, [facility] [place] [facility] [address] [id number] [place] [address]- [address]85 August, [facility] [facility] [address] [id number] [place] [address]- [address] August, [facility] [address] [id number] [place] [address]- [address]60 August, [facility] [address] [id number] [place] [address] August, [facility] [address] [id number] [place] [address]- [address] August, [facility] [address] [id number] [place] [address] Jul, [facility] [address] [id number] [place] [address] 27[address] Jul, [facility] [address] [id number] [place] [address] Jul, [facility] [address] [id number] [place] [address] Jul, [facility] [address] [id number] [place] [address]- 1484 Jul, [facility] [address] [id number] [place] [address]- [address]34 28 Jun, 2011 [facility] [address] [id number] [place] [address]- 67[address] Jun, [facility] [address] [id number] [place] [address]- 8621 Jun, [facility] [address] [id number] [place] [address]- [address]31 19 Jun, 2011 [facility] [address] [id number] [place] [address]- 0960 Jun, [facility] [address] [id number] [place] [address]- [address] Jun, [facility] [address] [id number] [place] [address]- 8700 Jun, [facility] [address] [id number] [place] [address]- [address]56 Jun, [facility] [address] [id number] [place] [address]- [address]206 Jun, [facility] [address] [id number] [place] [address]- [address] May, [facility] [address] [id number] [place] [address]- 2220 May, [facility] [address] [id number] [place] [address]- 3826 May, [facility] [address] [id number] [place] [address]- 8786 May, [facility] [address] [id number] [place] [address]- [address]671 May, [facility] [address] [id number] [place] [address]- 0823 May, [facility] [address] [id number] [place] [address]- 1359 May, [facility] [address] [facility] [id number] [place] [address]- [address] May, [facility] [address] [id number] [place] [address] 4[address] Apr, [facility] [address] [id number] [place] [address]- 4845 Apr, [facility] [address] [id number] [place] [address]- 6362 Apr, [facility] [address] [id number] [place] [address]- 7716 Apr, [facility] [address] [facility] [id number], [place] [address]- [address] Apr, [facility] [address] [id number] [place] [address]- 4434 Apr, [facility] [address] [id number] [place] [address]- [address] Mar[facility] [address] [id number] [place] [address]- 8682 Mar, [facility] [address] [id number] [place] [address]- 2715 Mar, [facility] [address] [id number] [place] [address]- 6851 Mar, [facility] [address] [id number] [place] [address]- 6[address] Mar, [facility] [address] [id number] [place] [address]- 1022 Mar, [facility] [address] [id number] [place] [address]- 2384 Mar, [facility] [address] [id number] [place] [address]- 7267 Mar, [facility] [address] [id number] [place] [address]- 4358 Mar, [facility] [address] [id number] [place] [address]- 8745 Mar, [facility] [address] [id number] [place] [address]- 9708 Mar, [facility] [address] [id number] [place] [address]- 7484 Mar, [facility] [address] [id number] [place] [address]- 8750 Mar, [facility] [address] [id number] [place] [address]- 4865 Feb, [facility] [address] [id number] [place] [address]- 1743 Feb, [facility] [address] [id number] [place] [address]- 0563 Feb, [facility] [address] [id number] [place] [address]- 1899 Feb, [facility] [address] [id number] [place] [address]- 3544 Feb, [facility] [address] [id number] [place] [address]- 5000 Feb, [facility] [address] [id number] [place] [address] Feb, [facility] [address] [id number] [place] [address]- 8837 Jan, [facility] [address] [id number] [place] [address]- 8260 Jan, [facility] [address] [id number] [place] [address]- 4072 Jan, [facility] [address] [id number] [place] [address]- 5663 Nov, [facility] [address] [id number] [place] [address]- 7064 Mar, [facility] [address] [id number] [place] [address]- 4461 Mar, [facility] [address] [id number] [place] [address]- 9472 20 Mar, 2010 [facility] [address] [id number] [place] [address]- 5292 13 Mar, 2010 [facility] [address] [id number] [place] [address]- 3047 07 Mar, 2010 [facility] [address] [id number] [place] [address]- 7413 30 Feb, 2010 [facility] [address] [facility] [id number] [place] [address]- [address]80 30 Feb, 2010 [facility] [address] [facility] [id number] [place] [address]- 2936 24 Feb, 2010 [facility] [address] [facility] [id number] [place] [address]- 5299 Feb, [facility] [address] [facility] [id number] [address]45 Feb, [facility] [address] [facility] [id number] [place] [address]- 5927 15 Feb, 2010 IMMUNIZATIONS No Known Immunizations SOCIAL HISTORY Never Assessed REASON FOR VISIT Xray (walk-in)--[facility] PLAN OF CARE VITAL SIGNS MEDICATIONS Unknown Medications RESULTS Name Result Date Reference Range Xray : Shoulder, Left 2 view (IN HOUSE) 2017-07-06 PROCEDURES Procedure Date Ordered Result Body Site X-RAY EXAM OF SHOULDER July 06, 2017 INSTRUCTIONS MEDICATIONS ADMINISTERED No Known Medications [...] Mastectomy 02/01/2017 Hospitalization History surgeries Hospitalization History [facility] ED 10/06/2017
--- OUTSIDE RECORDS SUMMARY | 2017-12-22 03:58 | XMS REPORT ---
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 [address]- 7348 18 Jun, 2014 [facility] [place] [facility] [address] [id number] [place] [address]- 7242 18 Jun, 2014 [facility] [place] [facility] [address] [id number] [place] [address]- 7800 18 Jun, 2014 [facility] [place] [facility] [address] [id number] [place] [address]- 9955 17 Jun, 2014 [facility] [place] [facility] [address] [id number] [place] [address]- 6596 17 Jun, 2014 [facility] [place] [facility] [address] [id number] [place] [address]- 4055 17 Jun, 2014 [facility] [place] [facility] [address] [id number] [place] [address]- 6727 17 Jun, 2014 [facility] [place] [facility] [address] [id number] [place] [address]- 1036 13 Jun, 2014 [facility] [place] [facility] [address] [id number] [place] [address]- 6332 13 Jun, 2014 [facility] [place] [facility] [address] [id number] [place] [address]- 8721 12 Jun, 2014 [facility] [place] [facility] [address] [id number] [place] [address]- 8793 12 Jun, 2014 [facility] [place] [facility] [address] [id number] [place] [address]- 2672 10 Jun, 2014 [facility] [place] [facility] [address] [id number] [place] [address]- 1954 10 Jun, 2014 [facility] [place] [facility] [address] [id number] [place] [address]- 9098 10 Jun, 2014 [facility] [place] [facility] [address] [id number] [place] [address]- 3248 10 Jun, 2014 [facility] [place] [facility] [address] [id number] [place] [address]- 4418 06 Jun, 2014 [facility] [place] [facility] [address] [id number] [place] [address]- 8299 06 Jun, 2014 [facility] [place] [facility] [address] [id number] [place] [address]- 9467 Jun, 2014 [facility] [place] [facility] [address] [id number] [place] [address]- 5174 Jun, 2014 [facility] [place] [facility] [address] [id number] [place] [address]- 3211 Jun, 2014 [facility] [place] [facility] [address] [id number] [place] [address]- 1556 Jun, [facility] [place] [facility] [address] [id number] [place] [address]- 3349 May, 2014 [facility] [place] [facility] [address] [id number] [place] [address]- 0288 May, 2014 [facility] [place] [facility] [address] [id number] [place] [address]- 2907 May, 2014 [facility] [place] [facility] [address] [facility] [id number] [place] [address]- 5221 May, 2014 [facility] [place] [facility] [address] [facility] [id number] [place] [address]- 8283 May, 2014 [facility] [place] [facility] [address] [facility] [id number] [place] [address]- 2319 May, 2014 [facility] [place] [facility] [address] [facility] [id number] [place] [address]- 0840 May, 2014 [facility] [place] [facility] [address] [facility] [id number] [place] [address]- 6765 May, 2014 [facility] [place] [facility] [address] [facility] [id number] [place] [address]- 1568 May, 2014 [facility] [place] [facility] [address] [id number] [place] [address]- 1827 May, 2014 [facility] [place] [facility] [address] [facility] [id number] [place] [address]- 7272 May, 2014 [facility] [place] [facility] [address] [facility] [id number] [place] [address]- 8990 May, 2014 [facility] [place] [facility] [address] [id number] [place] [address]- 3413 May, 2014 [facility] [place] [facility] [address] [id number] [place] [address]- 6779 May, [facility] [place] [facility] [address] [id number] [place] [address]- 8246 May, [facility] [place] [facility] [address] [id number] [place] [address]- 9135 May, [facility] [place] [facility] [address] [id number] [place] [address]- 0777 Apr, [facility] [place] [facility] [address] [id number] [place] [address]- 1682 Apr, [facility] [place] [facility] [address] [id number] [place] [address]- 8599 Apr, [facility] [place] [facility] [address] [id number] [place] [address]- 0060 Apr, [facility] [place] [facility] [address] [id number] [place] [address]- 8861 Apr, [facility] [place] [facility] [address] [id number] [place] [address]- 7935 Apr, [facility] [place] [facility] [address] [id number] [place] [address]- 4780 Apr, [facility] [place] [facility] [address] [id number] [place] [address]- 7769 Apr, [facility] [place] [facility] [address] [id number] [place] [address]- 6819 Apr, [facility] [place] [facility] [address] [id number] [place] [address]- 9745 Apr, [facility] [place] [facility] [address] [id number] [place] [address]- 4587 Apr, [facility] [place] [facility] [address] [id number] [place] [address]- 1526 Apr, [facility] [place] [facility] [address] [id number] [place] [address]- 0461 Apr, [facility] [place] [facility] [address] [id number] [place] [address]- 0066 Apr, [facility] [place] [facility] [address] [id number] [place] [address]- 1225 Apr, [facility] [place] [facility] [address] [id number] [place] 7470 Mar, [facility] [place] [facility] [address] [id number] [place] [address]- 2592 Mar, [facility] [place] [facility] [address] [id number] [place] [address]- 6588 Mar, [facility] [place] [facility] [address] [id number] [place] [address]- 9113 Mar, [facility] [place] [facility] [address] [id number] [place] [address]- 6807 Mar, [facility] [place] [facility] [address] [id number] [place] [address]- 3436 Mar, [facility] [place] [facility] [address] [id number] [place] [address]- 2140 15 Mar, 2014 [facility] [place] [facility] [address] [id number] [place] [address]- 9330 15 Mar, 2014 [facility] [place] [facility] [address] [id number] [place] [address]- 3677 15 Mar, 2014 [facility] [place] [facility] [address] [id number] [place] [address]- 5536 15 Mar, 2014 [facility] [place] [facility] [address] [id number] [place] [address]- 3157 15 Mar, 2014 [facility] [place] [facility] [address] [id number] [place] [address]- 8974 15 Mar, 2014 [facility] [place] [facility] [address] [id number] [place] [address]- 5970 Mar, [facility] [place] [facility] [address] [id number] [place] [address]- 6136 Mar, [facility] [place] [facility] [address] [id number] [place] [address]- 0582 Mar, [facility] [place] [facility] [address] [id number] [place] [address]- 8833 Mar, [facility] [place] [facility] [address] [id number] [place] [address]- 5009 Mar, [facility] [place] [facility] [address] [id number] [place] [address]- 7881 Mar, [facility] [place] [facility] [address] [id number] [place] [address]- 1089 Feb, [facility] [place] [facility] [address] [id number] [place] [address] Feb, [facility] [place] [facility] [address] [id number] [place] [address] Feb, [facility] [place] [facility] [address] [id number] [place] [address] Feb, [facility] [place] [facility] [address] [facility] [id number] [place] [address] Feb, [facility] [place] [facility] [address] [id number] [place] [address] Feb, [facility] [place] [facility] [address] [id number] [place] [address] Feb, [facility] [place] [facility] [address] [id number] [place] [address] Feb, [facility] [place] [facility] [address] [id number] [place] [address] Jan, [facility] [place] [facility] [address] [id number] [place] [address] Jan, [facility] [place] [facility] [address] [id number] [place] [address] Jan, [facility] [place] [facility] [address] [id number] [place] [address] Jan, [facility] [place] [facility] [address] [id number] [place] [address] Jan, [facility] [place] [facility] [address] [id number] [place] [address] Jan, [facility] [place] [facility] [address] [id number] [place] [address] Jan, [facility] [place] [facility] [address] [id number] [place] [address] Jan, [facility] [place] [facility] [address] [id number] [place] [address] Jan, [facility] [place] [facility] [address] [id number] [place] [address] Jan, [facility] [place] [facility] [address] [id number] [place] [address] Jan, [facility] [place] [facility] [address] [id number], [place] [address] Jan, [facility] [place] [facility] [address] [id number], [place] [address] Jan, [facility] [place] [facility] [address] [id number], [place] [address] Jan, [facility] [place] [facility] [address] [id number], [place] [address] Jan, [facility] [place] [facility] [address] [id number], [place] [address] 16 Jan, 2014 [facility] [place] [facility] [address] [id number], [place] [address] 13 Jan, 2014 [facility] [place] [facility] [address] [id number], [place] [address] 13 Jan, 2014 [facility] [place] [facility] [address] [id number] [place] [address]46 29 Sep, 2013 [facility] [place] [facility] [address] [id number] [place] [address]46 29 Dec, 2013 [facility] [place] [facility] [address] [id number] [place] [address]46 26 Dec, 2013 [facility] [place] [facility] [address] [id number] [place] [address] 2543 26 Dec, 2013 [facility] [place] [facility] [address] [id number] [place] [address] 26 Dec, 2013 [facility] [place] [facility] [address] [id number] [place] [address] 26 Dec, 2013 [facility] [place] [facility] [address] [id number] [place] [address]- [address] 23 Dec, 2013 [facility] [place] [facility] [address] [id number] [place] [address] 23 Dec, 2013 [facility] [place] [facility] [address] [id number] [place] [address] 2540 22 Dec, 2013 [facility] [place] [facility] [address] [id number] [place] [address] 2544 22 Dec, 2013 [facility] [place] [facility] [address] [id number], [place] [address] 16 Dec, 2013 [facility] [place] [facility] [address] [id number], [place] [address] 16 Dec, 2013 [facility] [place] [facility] [address] [id number], [place] [address] 15 Dec, 2013 [facility] [place] [facility] [address] [id number] [place] [address] 2546 15 Dec, 2013 [facility] [place] [facility] [address] [id number] [place] [address]- [address] 09 Dec, 2013 [facility] [place] [facility] [address] [id number] [place] [address] Dec, [facility] [place] [facility] [address] [id number] [place] [address] Dec, [facility] [place] [facility] [address] [id number] [place] [address] Nov, [facility] [place] [facility] [address] [id number] [place] [address]- [address] Nov, [facility] [place] [facility] [address] [id number] [place] [address] Nov, [facility] [place] [facility] [address] [id number] [place] [address] Nov, [facility] [place] [facility] [address] [id number] [place] [address] Nov, [facility] [place] [facility] [address] [id number] [place] [address]- [address] Nov, [facility] [place] [facility] [address] [id number] [place] [address]- [address] Nov, [facility] [place] [facility] [address] [id number] [place] [address] Nov, [facility] [place] [facility] [address] [id number] [place] [address] Nov, [facility] [place] [facility] [address] [id number] [place] [address] Nov, [facility] [place] [facility] [address] [address] [id number] [place] [address] Nov, [facility] [place] [facility] [address] [id number] [place] [address] 2704 Nov, [facility] [place] [facility] [address] [id number] [place] [address]- 0016 Nov, [facility] [place] [facility] [address] [id number] [place] [address] 1593 Nov, [facility] [place] [facility] [address] [id number] [place] [address]- 6765 Nov, [facility] [place] [facility] [address] [id number] [place] [address]- 5843 Nov, [facility] [place] [facility] [address] [id number] [place] [address] Nov, [facility] [place] [facility] [address] [id number] [place] [address] 9697 Nov, [facility] [place] [facility] [address] [id number] [place] [address] 2190 Nov, [facility] [place] [facility] [address] [id number] [place] [address]- 7151 Nov, [facility] [place] [facility] [address] [id number] [place] [address]- 4989 Nov, [facility] [place] [facility] [address] [id number] [place] [address]- 4756 Oct, [facility] [place] [facility] [address] [id number] [place] [address]- 6364 Oct, [facility] [place] [facility] [address] [id number] [place] [address]- 1667 Oct, [facility] [place] [facility] [address] [id number] [place] [address]- 8818 Oct, [facility] [place] [facility] [address] [id number] [place] [address]- 1017 Oct, [facility] [place] [facility] [address] [id number] [place] [address]- 2977 Oct, [facility] [place] [facility] [address] [id number] [place] [address]- 0536 Oct, [facility] [place] [facility] [address] [id number] [place] [address]- 2117 Oct, [facility] [place] [facility] [address] [id number] [place] [address]- 4399 15 Oct, 2013 [facility] [place] [facility] [address] [id number] [place] [address]- 3921 14 Oct, 2013 [facility] [place] [facility] [address] [id number] [place] [address]- 9076 Oct, [facility] [place] [facility] [address] [id number] [place] [address]- 1179 Oct, [facility] [place] [facility] [address] [id number] [place] [address]- 8471 Oct, [facility] [place] [facility] [address] [id number] [place] [address]- 9904 Oct, [facility] [place] [facility] [address] [id number] [place] [address]- 7965 Oct, [facility] [place] [facility] [address] [id number] [place] [address]- 9177 Sep, [facility] [place] [facility] [address] [id number] [place] [address]- 5817 Sep, [facility] [place] [facility] [address] [id number] [place] [address]- 4894 Sep, [facility] [place] [facility] [address] [id number] [place] [address]- 5197 Sep, [facility] [place] [facility] [address] [id number] [place] [address]- 1383 Sep, [facility] [place] [facility] [address] [id number] [place] [address]- 1020 Sep, [facility] [place] [facility] [address] [id number] [place] [address]- 5296 Sep, [facility] [place] [facility] [address] [id number] [place] [address]- 6122 Sep, [facility] [place] [facility] [address] [id number] [place] [address]- 8175 17 Sep, 2013 [facility] [place] [facility] [address] [id number] [place] [address]- 5960 Sep, [facility] [place] [facility] [address] [id number] [place] [address]- 0212 Sep, [facility] [place] [facility] [address] [id number] [place] [address]- 9095 Sep, [facility] [place] [facility] [address] [id number] [place] [address]- 1451 Sep, [facility] [place] [facility] [address] [id number] [place] [address]- 1407 Sep, [facility] [place] [facility] [address] [id number] [place] [address]- 8970 Sep, [facility] [place] [facility] [address] [id number] [place] [address]- 4587 Sep, [facility] [place] [facility] [address] [id number] [place] [address]- 0950 Sep, [facility] [place] [facility] [address] [id number] [place] [address]- 6826 Sep, [facility] [place] [facility] [address] [id number] [place] [address]- 6078 Sep, [facility] [place] [facility] [address] [id number] [place] [address]- 0019 Sep, [facility] [place] [facility] [address] [id number] [place] [address]- 1922 Sep, [facility] [place] [facility] [address] [id number] [place] [address]- 9718 Sep, [facility] [place] [facility] [address] [id number] [place] [address]- 2357 August, [facility] [place] [facility] [address] [id number] [place] [address]- 2452 August, [facility] [place] [facility] [address] [id number] [place] [address]- 0189 August, [facility] [address] [id number] [place] [address] August, [facility] [place] [facility] [address] [id number] [place] [address]- 8999 August, [facility] [place] [facility] [address] [id number] [place] [address]- 9812 August, [facility] [place] [facility] [address] [id number] [place] [address]- 6687 August, [facility] [place] [facility] [address] [id number] [place] [address]- 1781 August, [facility] [place] [facility] [address] [id number] [place] [address]- 5207 August, [facility] [place] [facility] [address] [id number] [place] [address]- 4840 August, [facility] [place] [facility] [address] [id number] [place] [address]- 6802 August, [facility] [place] [facility] [address] [id number] [place] [address]- 7859 August, [facility] [place] [facility] [address] [id number] [place] [address]- 3659 August, [facility] [place] [facility] [address] [id number] [place] [address]- 2653 August, [facility] [place] [facility] [address] [id number] [place] [address]- 0457 August, [facility] [place] [facility] [address] [id number] [place] [address]- 0936 August, [facility] [place] [facility] [address] [id number] [place] [address]- 4623 August, [facility] [place] [facility] [address] [id number] [place] [address]- 1373 August, [facility] [place] [facility] [address] [id number] [place] [address]- 7405 Jul, [facility] [address] [id number] [place] [address]- 5490 Jul, [facility] [address] [id number] [place] [address]- 0925 Jul, [facility] [address] [id number] [place] [address]- 0117 Jul, [facility] [address] [id number] [place] [address]- 0075 Jul, [facility] [address] [id number] [place] [address]- 8645 Jul, [facility] [address] [id number] [place] [address]- 7277 Jul, [facility] [address] [id number] [place] [address]- 7882 Jul, [facility] [address] [id number] [place] [address]- 5663 Jul, [facility] [address] [id number] [place] [address]- 9504 Jul, [facility] [address] [id number] [place] [address]- 0481 Jul, [facility] [place] [facility] [address] [id number] [place] [address]- 9363 Jul, [facility] [address] [id number] [place] [address]- 0711 Jul, [facility] [place] [facility] [address] [id number] [place] [address]- 4280 Jul, [facility] [place] [facility] [address] [id number] [place] [address]- 4999 Jul, [facility] [place] [facility] [address] [id number] [place] [address]- 6564 Jul, [facility] [place] [facility] [address] [id number] [place] [address]- 5279 17 Jul, 2013 [facility] [place] [facility] [address] [id number] [place] [address]- 1497 16 Jul, 2013 [facility] [place] [facility] [address] [id number] [place] [address]- 7735 16 Jul, 2013 [facility] [place] [facility] [address] [id number] [place] [address]- 7435 15 Jul, 2013 [facility] [place] [facility] [address] [id number] [place] [address]- 9118 15 Jul, 2013 [facility] [place] [facility] [address] [id number] [place] [address]- 2474 14 Jul, 2013 [facility] [place] [facility] [address] [id number] [place] [address]- 5320 14 Jul, 2013 [facility] [place] [facility] [address] [id number] [place] [address]- 6159 12 Jul, 2013 [facility] [place] [facility] [address] [id number] [place] [address]- 3580 Jul, [facility] [place] [facility] [address] [id number] [place] [address]- 2618 Jul, [facility] [place] [facility] [address] [id number] [place] [address]- 1137 Jul, [facility] [place] [facility] [address] [id number] [place] [address]- 6123 Jul, [facility] [place] [facility] [address] [id number] [place] [address]- 9328 Jul, [facility] [place] [facility] [address] [id number] [place] [address]- 8480 Jun, [facility] [place] [facility] [address] [id number] [place] [address] Jun, [facility] [place] [facility] [address] [id number] [place] [address]- 5298 17 Jun, 2013 [facility] [place] [facility] [address] [id number] [place] [address]- 4095 17 Jun, 2013 [facility] [place] [facility] [address] [id number] [place] [address]- 6836 13 Jun, 2013 [facility] [place] [facility] [address] [id number] [place] [address]- 7719 13 Jun, 2013 [facility] [place] [facility] [address] [id number] [place] [address]- 6818 11 Jun, 2013 [facility] [place] [facility] [address] [id number] [place] [address]- 3423 11 Jun, 2013 [facility] [place] [facility] [address] [id number] [place] [address]- 1705 10 Jun, 2013 [facility] [place] [facility] [address] [facility] [id number] [place] [address]- 4969 Jun, [facility] [place] [facility] [address] [facility] [id number] [place] [address]- 9829 Jun, [facility] [place] [facility] [address] [id number] [place] [address]- 6664 Jun, [facility] [place] [facility] [address] [facility] [id number] [place] [address]- 4663 May, [facility] [place] [facility] [address] [id number] [place] [address]- 8242 May, [facility] [place] [facility] [address] [id number] [place] [address]- 7523 May, [facility] [place] [facility] [address] [id number] [place] [address]- 7479 May, [facility] [place] [facility] [address] [id number] [place] [address]- 2199 May, [facility] [place] [facility] [address] [id number] [address]- 0703 May, [facility] [place] [facility] [address] [id number] [place] [address]- 1045 May, [facility] [place] [facility] [address] [id number] [place] [address]- 8854 May, [facility] [place] [facility] [address] [id number] [place] [address]- 4588 May, [facility] [place] [facility] [address] [id number] [place] [address]- 9294 May, [facility] [place] [facility] [address] [id number] [place] [address]- 5959 Apr, [facility] [place] [facility] [address] [id number] [place] [address]- 0993 Apr, [facility] [place] [facility] [address] [id number] [place] [address]- 8119 Apr, [facility] [place] [facility] [address] [id number] [place] [address]- 7107 Apr, [facility] [place] [facility] [address] [id number] [place] [address]- 2851 Apr, [facility] [place] [facility] [address] [id number] [place] [address]- 8446 Apr, [facility] [place] [facility] [address] [id number] [place] [address]- 7540 Apr, [facility] [place] [facility] [address] [id number], [place] [address]- 2804 Apr, [facility] [place] [facility] [address] [id number] [place] [address]- 0489 Apr, [facility] [place] [facility] [address] [id number] [place] [address]- 4425 Apr, [facility] [place] [facility] [address] [id number] [place] [address]- 1766 Mar, [facility] [place] [facility] [address] [id number][place] [address]- 1403 Mar, [facility] [place] [facility] [address] [id number] [place] [address]- 3945 Mar, [facility] [place] [facility] [address] [id number], [place] [address]- 0248 Mar, [facility] [place] [facility] [address] [facility] [id number] [place] [address]- 7446 Mar, [facility] [place] [facility] [address] [id number], [place] [address]- 4534 Mar, [facility] [place] [facility] [address] [id number] [place] [address]- 3564 Feb, [facility] [place] [facility] [address] [id number] [place] [address]- 1527 Feb, [facility] [place] [facility] [address] [facility] [id number], [place] [address]- 9514 Feb, [facility] [place] [facility] [address] [id number], [place] [address]- 3633 30 Jan, 2013 [facility] [place] [facility] [address] [facility] [id number], [place] [address]- 8965 30 Jan, 2013 [facility] [place] [facility] [address] [facility] [id number][place] [address]- 1688 Jan, [facility] [place] [facility] [address] [id number], [place] [address]- 0675 28 Jan, 2013 [facility] [place] [facility] [address] [id number], [place] [address]- 9133 15 Jan, 2013 [facility] [place] [facility] [address] [id number], [place] [address]- 3321 15 Jan, 2013 [facility] [place] [facility] [address] [facility] [id number][place] [address]- 7987 Jan, [facility] [place] [facility] [address] [facility] [id number], [place] [address]- 8045 Jan, [facility] [place] [facility] [address] [id number] [place] [address]- 0520 Jan, [facility] [place] [facility] [address] [id number] [place] [address]- 0776 Jan, [facility] [place] [facility] [address] [id number] [place] [address] 2546 30 Dec, 2012 [facility] [place] [facility] [address] [id number] [place] [address]- 3996 25 Dec, 2012 [facility] [place] [facility] [address] [id number] [place] [address] 2547 11 Dec, 2012 [facility] [place] [facility] [address] [id number] [place] [address]- 4746 Dec, 2012 [facility] [place] [facility] [address] [id number] [place] [address]- 6062 05 Dec, 2012 [facility] [place] [facility] [address] [id number] [place] [address]- 9635 Dec, [facility] [place] [facility] [address] [id number] [place] [address]- 3296 Nov, [facility] [place] [facility] [address] [id number] [place] [address]- 0395 Nov, [facility] [place] [facility] [address] [id number] [place] [address]- 1589 Nov, [facility] [place] [facility] [address] [id number] [place] [address] 2545 Nov, [facility] [place] [facility] [address] [id number] [place] [address] 2545 Nov, [facility] [place] [facility] [address] [id number] [place] [address] 2546 Nov, [facility] [place] [facility] [address] [id number] [place] [address]- 2547 Nov, [facility] [place] [facility] [address] [id number] [place] [address]- 6362 Nov, [facility] [address] [id number] [place] [address]- 6763 Nov, [facility] [place] [facility] [address] [id number] [place] [address]- 1504 Nov, [facility] [place] [facility] [address] [id number] [place] [address]- 2732 Nov, [facility] [place] [facility] [address] [id number] [place] [address]- 3665 Nov, [facility] [address] [id number] [place] [address]- 0462 Oct, [facility] [place] [facility] [address] [id number] [place] [address]- 5722 Oct, [facility] [place] [facility] [address] [id number] [place] [address]- 7778 Oct, [facility] [place] [facility] [address] [id number] [place] [address]- 2221 Sep, [facility] [place] [facility] [address] [id number] [place] [address]- 2070 Sep, [facility] [place] [facility] [address] [id number] [place] [address]- 0379 Sep, [facility] [place] [facility] [address] [id number] [place] [address]- 8484 August, [facility] [place] [facility] [address] [id number] [place] [address]- 4872 August, [facility] [place] [facility] [address] [id number] [place] [address]- 1770 August, [facility] [place] [facility] [address] [id number] [place] [address]- 8467 August, [facility] [place] [facility] [address] [id number] [place] [address]- 6885 August, [facility] [place] [facility] [address] [id number] [place] [address]- 7684 August, [facility] [address] [id number] [place] [address]- 6805 30 Jul, 2012 [facility] [place] [facility] [address] [id number] [place] [address]- 7914 15 Jul, 2012 [facility] [address] [id number] [place] [address]- 8196 Jul, [facility] [address] [id number] [place] [address]- 2141 Jul, [facility] [address] [id number] [place] [address]- 7145 Jul, [facility] [address] [id number] [place] [address]- 6665 Jul, [facility] [address] [id number] [place] [address]- 2149 2012 [facility] [address] [id number] [place] [address]- 6935 20 Jun, 2012 [facility] [address] [id number] [place] [address]- 3142 18 Jun, 2012 [facility] [address] [facility] [id number] [place] [address]- 4299 14 Jun, 2012 [facility] [place] [facility] [address] [id number] [place] [address]- 4970 04 Jun, 2012 [facility] [place] [facility] [address] [id number] [place] [address]- 1566 May, [facility] [place] [facility] [address] [id number] [place] [address]- 7976 12 May, 2012 [facility] [place] [facility] [address] [id number] [place] [address]- 4694 May, [facility] [place] [facility] [address] [id number] [place] [address]- 7320 08 May, 2012 [facility] [place] [facility] [address] [id number] [place] [address]- 2506 Apr, [facility] [place] [facility] [address] [id number] [place] [address]- 0546 Apr, [facility] [place] [facility] [address] [id number] [place] [address]- 0646 Apr, [facility] [place] [facility] [address] [id number] [place] [address]- 2506 Mar, [facility] [place] [facility] [address] [id number] [place] [address]- 7806 Mar, [facility] [place] [facility] [address] [id number] [place] [address]- 4106 Mar, [facility] [place] [facility] [address] [id number] [place] [address]- 2156 Mar, [facility] [place] [facility] [address] [id number] [place] [address]- 9176 Mar, [facility] [place] [facility] [address] [id number] [place] [address]- 6886 Mar, [facility] [place] [facility] [address] [id number] [place] [address]- 2166 Mar, [facility] [place] [facility] [address] [id number] [place] [address] 40[address] Mar, [facility] [place] [facility] [address] [id number], [place] [address] Feb, [facility] [place] [facility] [address] [id number] [place] [address] Feb, [facility] [place] [facility] [address] [id number] [place] [address] 9[address] Feb, [facility] [place] [facility] [address] [id number] [place] [address] Feb, [facility] [place] [facility] [address] [id number], [place] [address] Feb, [facility] [place] [facility] [address] [id number] [place] [address] Feb, [facility] [place] [facility] [address] [facility] [id number], [place] [address] Feb, [facility] [place] [facility] [address] [facility] [id number] [place] [address] Feb, [facility] [place] [facility] [address] [id number] [place] [address] 1942 Feb, [facility] [place] [facility] [address] [facility] [id number] [place] [address], [place] [address]- [address]28 Feb, [facility] [place] [facility] [address] [facility] [id number] [place] [address]- 20[address] Feb, [facility] [place] [facility] [id number] [place] [address] Feb, [facility] [place] [facility] [address] [facility] [id number], [place] [address] Feb, [facility] [place] [facility] [id number] [address] Feb, [facility] [place] [facility] [address] [id number], [place] [address] Feb, [facility] [place] [facility] [address] [facility] [id number], [place] [address] Feb, [facility] [place] [facility] [address] [facility] [id number], [place] [address]- 3699 Feb, [facility] [place] [facility] [address] [facility] [id number], [place] [address] 83[address] Feb, [facility] [place] [facility] [address] [facility] [id number], [place] [address]- [address] Jan, [facility] [place] [facility] [address] [id number], [place] [address] Jan, [facility] [place] [facility] [address] [id number] [place] [address]- 4468 22 Jan, 2012 [facility] [place] [facility] [address] [id number] [place] [address]- [address] 20 Jan, 2012 [facility] [place] [facility] [address] [id number] [place] [address]- 3431 20 Jan, 2012 [facility] [place] [facility] [address] [id number] [place] [address]- 7861 19 Jan, 2012 [facility] [place] [facility] [address] [id number] [place] [address]- 5699 18 Jan, 2012 [facility] [place] [facility] [address] [id number] [place] [address]- 9218 18 Jan, 2012 [facility] [place] [facility] [address] [id number] [place] [address]- 0104 15 Jan, 2012 [facility] [place] [facility] [address] [id number] [place] [address]- 6892 15 Jan, 2012 [facility] [place] [facility] [address] [id number] [place] [address]- 4650 11 Jan, 2012 [facility] [place] [facility] [address] [id number] [place] [address]- 5728 11 Jan, 2012 [facility] [place] [facility] [address] [id number] [place] [address]- 9714 10 Jan, 2012 [facility] [place] [facility] [address] [id number] [place] [address]- 7429 09 Jan, 2012 [facility] [place] [facility] [address] [id number] [place] [address]- 6085 02 Jan, 2012 [facility] [place] [facility] [address] [id number] [place] [address]- 2676 29 Dec, 2011 [facility] [place] [facility] [address] [id number] [place] [address]- 8336 28 Dec, 2011 [facility] [place] [facility] [address] [id number] [place] [address]- 3457 Dec, [facility] [place] [facility] [address] [id number] [place] [address]- [address]234 Dec, [facility] [place] [facility] [address] [id number] [place] [address] Nov, [facility] [place] [facility] [address] [id number] [place] [address]- 9424 Nov, [facility] [place] [facility] [address] [id number] [place] [address]- 2491 Nov, [facility] [place] [facility] [address] [id number] [place] [address]- 4814 Nov, [facility] [place] [facility] [address] [id number] [place] [address]- 5798 Nov, [facility] [place] [facility] [address] [id number] [place] [address]- 0788 Nov, [facility] [place] [facility] [address] [id number] [place] [address]- 1810 Nov, [facility] [place] [facility] [address] [id number] [place] [address]- 8226 Nov, [facility] [place] [facility] [address] [id number] [place] [address]- 3725 Nov, [facility] [place] [facility] [address] [id number] [place] [address]- 1941 Nov, [facility] [place] [facility] [address] [id number] [place] [address]- 7461 Nov, [facility] [place] [facility] [address] [id number] [place] [address]- 5032 Oct, [facility] [place] [facility] [address] [id number] [place] [address]- 3028 Oct, [facility] [place] [facility] [address] [id number] [place] [address]- 9591 Oct, [facility] [place] [facility] [address] [id number] [place] [address]- 2677 Oct, [facility] [place] [facility] [address] [id number] [place] [address]- 6914 Oct, [facility] [place] [facility] [address] [id number] [place] [address]- 5366 Oct, [facility] [place] [facility] [address] [id number] [place] [address]- 1516 Oct, [facility] [place] [facility] [address] [id number] [place] [address]- 7773 Oct, [facility] [place] [facility] [address] [id number] [place] [address]- 4260 Sep, [facility] [place] [facility] [address] [id number] [place] [address]- 1143 Sep, [facility] [place] [facility] [address] [id number] [place] [address]- 1201 Sep, [facility] [place] [facility] [address] [id number] [place] [address]- 1502 Sep, [facility] [place] [facility] [address] [id number] [place] [address]- 6228 Sep, [facility] [place] [facility] [address] [id number] [place] [address]- 3668 Sep, [facility] [place] [facility] [address] [id number] [place] [address]- 3607 Sep, [facility] [place] [facility] [address] [id number] [place] [address]- 2397 August, [facility] [place] [facility] [address] [id number] [place] [address]- 8337 August, [facility] [place] [facility] [address] [id number] [place] [address]- 2840 August, [facility] [place] [facility] [address] [id number] [place] [address]- 5061 August, [facility] [place] [facility] [address] [id number] [place] [address]- 6963 August, [facility] [address] [address] [id number] [place] [address] August, [facility] [address] [id number] [place] [address] August, [facility] [address] [id number] [place] [address] August, [facility] [address] [id number] [place] [address] Jul, [facility] [address] [id number] [place] [address] Jul, [facility] [address] [id number] [place] [address] Jul, [facility] [address] [id number] [place] [address] Jul, [facility] [address] [id number] [place] [address] Jul, [facility] [address] [id number] [place] [address] 28 Jun, 2011 [facility] [address] [id number] [place] [address] Jun, [facility] [address] [id number] [place] [address] Jun, [facility] [address] [id number] [place] [address] 19 Jun, 2011 [facility] [place] [facility] [address] [id number] [place] [address] Jun, [facility] [place] [facility] [address] [id number] [place] [address] Jun, [facility] [address] [id number] [place] [address] Jun, [facility] [address] [id number] [place] [address] Jun, [facility] [place] [facility] [address] [id number] [place] [address] Jun, [facility] [place] [facility] [address] [id number] [place] [address] May, [facility] [place] [facility] [address] [id number] [place] [address] May, [facility] [place] [facility] [address] [id number] [place] [address] May, [facility] [place] [facility] [address] [id number] [place] [address] May, [facility] [address] [id number] [place] [address] May, [facility] [place] [facility] [address] [id number] [place] [address] May, [facility] [place] [facility] [address] [id number] [place] [address] May, [facility] [place] [facility] [address] [facility] [id number] [place] [address] May, [facility] [place] [facility] [address] [id number] [place] [address] Apr, [facility] [place] [facility] [address] [id number] [place] [address] Apr, [facility] [place] [facility] [address] [id number] [place] [address] Apr, [facility] [place] [facility] [address] [id number] [place] [address] Apr, [facility] [place] [facility] [address] [facility] [id number], [place] [address] Apr, [facility] [place] [facility] [address] [id number] [place] [address] Apr, [facility] [address] [id number] [place] [address] Mar, [facility] [address] [id number] [place] [address] Mar, [facility] [address] [id number] [place] [address] Mar, [facility] [address] [id number] [place] [address] Mar, [facility] [address] [id number] [place] [address] Mar, [facility] [address] [id number] [place] [address] Mar, [facility] [address] [id number] [place] [address] Mar, [facility] [address] [id number] [place] [address] Mar, [facility] [address] [id number] [place] [address] Mar, [facility] [address] [id number] [place] [address] Mar, [facility] [address] [id number] [place] [address] Mar, [facility] [place] [facility] [address] [id number] [place] [address] Mar, [facility] [place] [facility] [address] [id number] [place] [address] Mar, [facility] [place] [facility] [address] [id number] [place] [address] Feb, [facility] [place] [facility] [address] [id number] [place] [address] Feb, [facility] [place] [facility] [address] [id number] [place] [address] Feb, [facility] [place] [facility] [address] [id number] [place] [address] Feb, [facility] [place] [facility] [address] [id number] [place] [address] Feb, [facility] [place] [facility] [address] [id number] [place] [address] Feb, [facility] [place] [facility] [address] [id number] [place] [address] Feb, [facility] [place] [facility] [address] [id number] [place] [address] Jan, [facility] [place] [facility] [address] [id number] [place] [address] Jan, [facility] [place] [facility] [address] [id number] [place] [address] Jan, [facility] [place] [facility] [address] [id number] [place] [address] Nov, [facility] [place] [facility] [address] [id number] [place] [address] Mar, [facility] [place] [facility] [address] [id number] [place] [address] Mar, [facility] [place] [facility] [address] [id number] [place] [address] 20 Mar, 2010 [facility] [place] [facility] [address] [id number] [place] [address] 13 Mar, 2010 [facility] [place] [facility] [address] [id number] [place] [address] 07 Mar, 2010 [facility] [place] [facility] [address] [id number] [place] [address] 30 Feb, 2010 [facility] [place] [facility] [address] [facility] [id number] [place] [address] 30 Feb, 2010 [facility] [address] [facility] [id number] [place] [address] 24 Feb, 2010 [facility] [address] [facility] [id number] [place] [address] 19 Feb, 2010 [facility] [address] [facility] [id number] [address] 19 Feb, 2010 [facility] [address] [facility] [id number] [place] [address] 15 Feb, 2010 IMMUNIZATIONS No Known Immunizations [...] Mastectomy 02/01/2017 Hospitalization History surgeries Hospitalization History [facility] ED 10/06/2017
--- OUTSIDE RECORDS SUMMARY | 2017-12-22 03:59 | XMS REPORT ---
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 [facility] [address] [id number] [place] [address]- 0435 Jun, [facility] [place] [facility] [address] [id number] [place] [address]- 0822 19 Jun, 2014 [facility] [place] [facility] [address] [id number] [place] [address]- 7450 19 Jun, 2014 [facility] [place] [facility] [address] [id number], [place] [address]- 9953 18 Jun, 2014 [facility] [place] [facility] [address] [id number] [place] [address]- 6424 18 Jun, 2014 [facility] [place] [facility] [address] [id number] [place] [address]- 4788 18 Jun, 2014 [facility] [place] [facility] [address] [id number] [place] [address]- 6795 18 Jun, 2014 [facility] [place] [facility] [address] [id number] [place] [address]- 3863 17 Jun, 2014 [facility] [place] [facility] [address] [id number] [place] [address]- 9282 17 Jun, 2014 [facility] [place] [facility] [address] [id number] [place] [address]- 8476 17 Jun, 2014 [facility] [place] [facility] [address] [id number] [place] [address]- 1393 17 Jun, 2014 [facility] [place] [facility] [address] [id number] [place] [address]- 4363 13 Jun, 2014 [facility] [place] [facility] [address] [id number] [place] [address]- 6849 13 Jun, 2014 [facility] [place] [facility] [address] [id number] [place] [address]- 5471 12 Jun, 2014 [facility] [place] [facility] [address] [id number] [place] [address]- 1188 12 Jun, 2014 [facility] [place] [facility] [address] [id number] [place] [address]- 7036 10 Jun, 2014 [facility] [place] [facility] [address] [id number] [place] [address]- 9155 10 Jun, 2014 [facility] [place] [facility] [address] [id number] [place] [address]- 9451 10 Jun, 2014 [facility] [place] [facility] [address] [id number] [place] [address]- 3319 10 Jun, 2014 [facility] [place] [facility] [address] [id number] [place] [address]- 8107 06 Jun, 2014 [facility] [place] [facility] [address] [id number] [place] [address]- 6553 06 Jun, 2014 [facility] [place] [facility] [address] [id number] [place] [address]- 0341 05 Jun, 2014 [facility] [place] [facility] [address] [id number] [place] [address]- 3885 Jun, 2014 [facility] [place] [facility] [address] [id number] [place] [address]- 9310 Jun, [facility] [place] [facility] [address] [facility] [id number] [place] [address]- 6741 Jun, 2014 [facility] [place] [facility] [address] [facility] [id number] [place] [address]- 9472 May, 2014 [facility] [place] [facility] [address] [facility] [id number] [place] [address]- 9463 May, 2014 [facility] [place] [facility] [address] [id number] [place] [address]- 9255 May, 2014 [facility] [place] [facility] [address] [facility] [id number] [place] [address]- 7772 May, 2014 [facility] [place] [facility] [address] [facility] [id number] [place] [address]- 9043 May, 2014 [facility] [place] [facility] [address] [facility] [id number] [place] [address]- 2506 May, 2014 [facility] [place] [facility] [address] [facility] [id number] [place] [address]- 6582 May, 2014 [facility] [place] [facility] [address] [facility] [id number] [place] [address]- 4171 May, 2014 [facility] [place] [facility] [address] [facility] [id number] [place] [address]- 6052 May, 2014 [facility] [place] [facility] [address] [facility] [id number] [place] [address]- 0069 May, 2014 [facility] [place] [facility] [address] [facility] [id number] [place] [address]- 5631 May, 2014 [facility] [place] [facility] [address] [facility] [id number] [place] [address]- 5551 May, 2014 [facility] [place] [facility] [address] [facility] [id number] [place] [address]- 7004 May, 2014 [facility] [place] [facility] [address] [id number] [place] [address]- 5335 05 May, 2014 [facility] [place] [facility] [address] [id number] [place] [address]- 7594 May, [facility] [place] [facility] [address] [id number] [place] [address]- 5037 May, [facility] [place] [facility] [address] [id number] [place] [address]- 8130 Apr, [facility] [place] [facility] [address] [id number] [place] [address]- 1530 Apr, [facility] [place] [facility] [address] [id number] [place] [address]- 5267 Apr, [facility] [place] [facility] [address] [id number] [place] [address]- 6681 Apr, [facility] [place] [facility] [address] [id number] [place] [address]- 6635 Apr, [facility] [place] [facility] [address] [id number] [place] [address]- 8746 Apr, [facility] [place] [facility] [address] [id number] [place] [address]- 0677 Apr, [facility] [place] [facility] [address] [id number] [place] [address]- 0862 Apr, [facility] [place] [facility] [address] [id number] [place] [address]- 3000 Apr, [facility] [place] [facility] [address] [id number] [place] [address]- 0592 Apr, [facility] [place] [facility] [address] [id number] [place] [address]- 9985 Apr, [facility] [place] [facility] [address] [id number] [place] [address]- 1051 Apr, [facility] [place] [facility] [address] [id number] [place] [address]- 5510 Apr, [facility] [place] [facility] [address] [id number] [place] [address]- 5842 Apr, [facility] [place] [facility] [address] [id number] [place] [address]- 9116 Apr, [facility] [place] [facility] [address] [id number] [place] [address]- 8194 Mar, [facility] [place] [facility] [address] [id number] [place] [address]- 1797 Mar, [facility] [place] [facility] [address] [id number] [place] [address]- 8198 Mar, [facility] [place] [facility] [address] [id number] [place] [address]- 3282 Mar, [facility] [place] [facility] [address] [id number] [place] [address]- 7813 Mar, [facility] [place] [facility] [address] [id number] [place] [address]- 7334 Mar, [facility] [place] [facility] [address] [id number] [place] [address]- 7378 Mar, [facility] [place] [facility] [address] [id number] [place] [address]- 6900 Mar, [facility] [place] [facility] [address] [id number] [place] [address]- 1128 15 Mar, 2014 [facility] [place] [facility] [address] [id number] [place] [address]- 2841 15 Mar, 2014 [facility] [place] [facility] [address] [id number] [place] [address]- 1802 Mar, [facility] [place] [facility] [address] [id number] [place] [address]- 7826 15 Mar, 2014 [facility] [place] [facility] [address] [id number] [place] [address]- 4244 Mar, [facility] [place] [facility] [address] [id number] [place] [address]- 9685 Mar, [facility] [place] [facility] [address] [id number] [place] [address]- 0323 Mar, [facility] [place] [facility] [address] [id number] [place] [address]- 2048 Mar, [facility] [place] [facility] [address] [id number] [place] 0979 Mar, [facility] [place] [facility] [address] [id number] [place] [address]- 4777 Mar, [facility] [place] [facility] [address] [id number] [place] [address]- 3239 Feb, [facility] [place] [facility] [address] [id number] [place] [address]- 9077 Feb, [facility] [place] [facility] [address] [id number] [place] [address]- 4612 Feb, [facility] [place] [facility] [address] [id number] [place] [address]- 7879 Feb, [facility] [place] [facility] [address] [id number] [place] [address]- 6221 Feb, [facility] [place] [facility] [address] [facility] [id number] [place] [address] Feb, [facility] [place] [facility] [address] [id number] [place] [address] Feb, [facility] [place] [facility] [address] [id number] [place] [address] Feb, [facility] [place] [facility] [address] [id number] [place] [address] Jan, [facility] [place] [facility] [address] [id number] [place] [address] Jan, [facility] [place] [facility] [address] [id number] [place] [address] Jan, [facility] [place] [facility] [address] [id number] [place] [address] Jan, [facility] [place] [facility] [address] [id number] [place] [address] Jan, [facility] [place] [facility] [address] [id number] [place] [address]78 Jan, [facility] [place] [facility] [address] [id number] [place] [address] Jan, [facility] [place] [facility] [address] [id number] [place] [address]- [address] Jan, [facility] [place] [facility] [address] [id number] [place] [address] Jan, [facility] [place] [facility] [address] [id number] [place] [address] Jan, [facility] [place] [facility] [address] [id number] [place] [address] Jan, [facility] [place] [facility] [address] [id number] [place] [address] Jan, [facility] [place] [facility] [address] [id number], [place] [address] Jan, [facility] [place] [facility] [address] [id number], [place] [address] Jan, [facility] [place] [facility] [address] [id number], [place] [address] 16 Jan, 2014 [facility] [place] [facility] [address] [id number], [place] [address] 16 Jan, 2014 [facility] [place] [facility] [address] [id number], [place] [address] Jan, [facility] [place] [facility] [address] [id number], [place] [address] Jan, [facility] [place] [facility] [address] [id number], [place] [address] 29 Sep, 2013 [facility] [place] [facility] [address] [id number] [place] [address] 2546 29 Sep, 2013 [facility] [place] [facility] [address] [id number] [place] [address] 2546 26 Sep, 2013 [facility] [place] [facility] [address] [id number] [place] [address] 2546 26 Sep, 2013 [facility] [place] [facility] [address] [id number] [place] [address] 2545 26 Sep, 2013 [facility] [place] [facility] [address] [id number] [place] [address] 2549 26 Sep, 2013 [facility] [place] [facility] [address] [id number] [place] [address]- [address]29 23 Dec, 2013 [facility] [place] [facility] [address] [id number] [place] [address] 23 Dec, 2013 [facility] [place] [facility] [address] [id number] [place] [address]41 22 Dec, 2013 [facility] [place] [facility] [address] [id number] [place] [address] 2542 22 Dec, 2013 [facility] [place] [facility] [address] [id number] [place] [address] 254 16 Sep, 2013 [facility] [place] [facility] [address] [id number] [place] [address] 2542 16 Sep, 2013 [facility] [place] [facility] [address] [id number], [place] [address]46 15 Sep, 2013 [facility] [place] [facility] [address] [id number] [place] [address] 2546 15 Dec, 2013 [facility] [place] [facility] [address] [id number] [place] [address]- [address] 09 Sep, 2013 [facility] [place] [facility] [address] [id number] [place] [address]- [address] 03 Sep, 2013 [facility] [place] [facility] [address] [id number] [place] [address]- [address]98 Dec, [facility] [place] [facility] [address] [id number] [place] [address] Nov, [facility] [place] [facility] [address] [id number] [place] [address] Nov, [facility] [place] [facility] [address] [id number] [place] [address]- [address] Nov, [facility] [place] [facility] [address] [id number] [place] [address]- [address] Nov, [facility] [place] [facility] [address] [id number] [place] [address]35 Nov, [facility] [place] [facility] [address] [id number] [place] [address] Nov, [facility] [place] [facility] [address] [id number] [place] [address]- [address] Nov, [facility] [place] [facility] [address] [id number] [place] [address] Nov, [facility] [place] [facility] [address] [id number] [place] [address]- [address] Nov, [facility] [place] [facility] [address] [id number] [place] [address] Nov, [facility] [place] [facility] [address] [id number] [place] [address]- 6579 Nov, [facility] [place] [facility] [address] [id number] [place] [address]- 2896 Nov, [facility] [place] [facility] [address] [id number] [place] [address]- 30[address] Nov, [facility] [place] [facility] [address] [id number] [place] [address] Nov, [facility] [place] [facility] [address] [id number] [place] [address] Nov, [facility] [place] [facility] [address] [id number] [place] [address] 69[address] Nov, [facility] [place] [facility] [address] [id number] [place] [address] Nov, [facility] [place] [facility] [address] [id number] [place] [address] 54[address] Nov, [facility] [place] [facility] [address] [id number] [place] [address]- 0268 Nov, [facility] [place] [facility] [address] [id number] [place] [address] 0130 Nov, [facility] [place] [facility] [address] [id number] [place] [address]- 1090 Nov, [facility] [place] [facility] [address] [id number] [place] [address]- 0185 Oct, [facility] [place] [facility] [address] [id number] [place] [address] 3014 Oct, [facility] [place] [facility] [address] [id number] [place] [address]- 0194 Oct, [facility] [place] [facility] [address] [id number] [place] [address]- 7172 Oct, [facility] [place] [facility] [address] [id number] [place] [address] 8380 Oct, [facility] [place] [facility] [address] [id number] [place] [address]- 4471 Oct, [facility] [place] [facility] [address] [id number] [place] [address]- 3897 Oct, [facility] [place] [facility] [address] [id number] [place] [address]- 2777 Oct, [facility] [place] [facility] [address] [id number] [place] [address]- 2272 Oct, [facility] [place] [facility] [address] [id number] [place] [address]- 7827 14 Oct, 2013 [facility] [place] [facility] [address] [id number] [place] [address]- 2637 Oct, [facility] [place] [facility] [address] [id number] [place] [address]- 9408 Oct, [facility] [place] [facility] [address] [id number] [place] [address]- 6621 Oct, [facility] [place] [facility] [address] [id number] [place] [address]- 2400 Oct, [facility] [place] [facility] [address] [id number] [place] [address]- 7906 Oct, [facility] [place] [facility] [address] [id number] [place] [address]- 1067 Sep, [facility] [place] [facility] [address] [id number] [place] [address]- 7129 Sep, [facility] [place] [facility] [address] [id number] [place] [address]- 0234 Sep, [facility] [place] [facility] [address] [id number] [place] [address]- 6711 Sep, [facility] [place] [facility] [address] [id number] [place] [address]- 8180 Sep, [facility] [place] [facility] [address] [id number] [place] [address]- 7520 Sep, [facility] [place] [facility] [address] [id number] [place] [address]- 1336 Sep, [facility] [place] [facility] [address] [id number] [place] [address]- 4473 Sep, [facility] [place] [facility] [address] [id number] [place] [address]- 0892 17 Sep, 2013 [facility] [place] [facility] [address] [id number] [place] [address]- 7779 16 Sep, 2013 [facility] [place] [facility] [address] [id number] [place] [address]- 6489 Sep, [facility] [place] [facility] [address] [id number] [place] [address]- 6025 Sep, [facility] [place] [facility] [address] [id number] [place] [address]- 9989 Sep, [facility] [place] [facility] [address] [id number] [place] [address]- 7604 Sep, [facility] [place] [facility] [address] [id number] [place] [address]- 4152 Sep, [facility] [place] [facility] [address] [id number] [place] [address]- 0268 Sep, [facility] [place] [facility] [address] [id number] [place] [address]- 0914 Sep, [facility] [place] [facility] [address] [id number] [place] [address]- 7996 Sep, [facility] [place] [facility] [address] [id number] [place] [address]- 6671 Sep, [facility] [place] [facility] [address] [id number] [place] [address]- 2192 Sep, [facility] [place] [facility] [address] [id number] [place] [address]- 4787 Sep, [facility] [place] [facility] [address] [id number] [place] [address]- 4931 Sep, [facility] [place] [facility] [address] [id number] [place] [address]- 3139 August, [facility] [place] [facility] [address] [id number] [place] [address]- 5620 August, [facility] [place] [facility] [address] [id number] [place] [address]- 2089 August, [facility] [place] [facility] [address] [id number] [place] [address]- 0496 August, [facility] [place] [facility] [address] [id number] [place] [address]- 7437 August, [facility] [place] [facility] [address] [id number] [place] [address]- 9014 August, [facility] [place] [facility] [address] [id number] [place] [address]- 0796 August, [facility] [place] [facility] [address] [id number] [place] [address]- 1891 August, [facility] [place] [facility] [address] [id number] [place] [address]- 7919 August, [facility] [place] [facility] [address] [id number] [place] [address]- 3018 August, [facility] [place] [facility] [address] [id number] [place] [address]- 8372 August, [facility] [place] [facility] [address] [id number] [place] [address]- 9126 August, [facility] [place] [facility] [address] [id number] [place] [address]- 0792 August, [facility] [place] [facility] [address] [id number] [place] [address]- 3120 August, [facility] [place] [facility] [address] [id number] [place] [address]- 0078 August, [facility] [place] [facility] [address] [id number] [place] [address]- 0366 August, [facility] [place] [facility] [address] [id number] [place] [address]- 3649 August, [facility] [place] [facility] [address] [id number] [place] [address]- 2292 August, [facility] [place] [facility] [address] [id number] [place] [address]- 0292 Jul, [facility] [place] [facility] [address] [id number] [place] [address]- 2224 Jul, [facility] [address] [id number] [place] [address]- 8228 Jul, [facility] [address] [id number] [place] [address]- 8481 Jul, [facility] [address] [id number] [place] [address]- 6431 Jul, [facility] [address] [id number] [place] [address]- 3616 Jul, [facility] [address] [id number] [place] [address]- 2992 Jul, [facility] [address] [id number] [place] [address]- 2760 Jul, [facility] [address] [id number] [place] [address]- 2776 Jul, [facility] [address] [id number] [place] [address]- 1570 Jul, [facility] [address] [id number] [place] [address]- 0511 Jul, [facility] [address] [id number] [place] [address]- 6643 Jul, [facility] [place] [place] [facility] [address] [id number] [place] [address]- 9186 Jul, [facility] [place] [facility] [address] [id number] [place] [address]- 9017 Jul, [facility] [place] [facility] [address] [id number] [place] [address]- 9343 Jul, [facility] [place] [facility] [address] [id number] [place] [address]- 0824 Jul, [facility] [place] [place] [facility] [address] [id number] [place] [address]- 0687 Jul, [facility] [place] [facility] [address] [id number] [place] [address]- 2440 16 Jul, 2013 [facility] [place] [facility] [address] [id number] [place] [address]- 4243 16 Jul, 2013 [facility] [place] [facility] [address] [id number] [place] [address]- 0655 15 Jul, 2013 [facility] [place] [facility] [address] [id number] [place] [address]- 5404 15 Jul, 2013 [facility] [place] [facility] [address] [id number] [place] [address]- 6313 14 Jul, 2013 [facility] [place] [facility] [address] [id number] [place] [address]- 5571 14 Jul, 2013 [facility] [place] [facility] [address] [id number] [place] [address]- 2063 Jul, [facility] [place] [facility] [address] [id number] [place] [address]- 5939 Jul, [facility] [place] [facility] [address] [id number] [place] [address]- 3177 Jul, [facility] [place] [facility] [address] [id number] [place] [address]- 6957 Jul, [facility] [place] [facility] [address] [id number] [place] [address]- 1886 Jul, [facility] [place] [facility] [address] [id number] [place] [address]- 4109 Jul, [facility] [place] [facility] [address] [id number] [place] [address]- 0904 Jun, [facility] [place] [facility] [address] [id number] [place] [address]- 0656 Jun, [facility] [place] [facility] [address] [id number] [place] [address] Jun, [facility] [place] [facility] [address] [id number], [place] [address]- 5727 17 Jun, 2013 [facility] [place] [facility] [address] [id number] [place] [address]- 6471 13 Jun, 2013 [facility] [place] [facility] [address] [id number] [place] [address]- 1249 13 Jun, 2013 [facility] [place] [facility] [address] [facility] [id number] [place] [address]- 6177 11 Jun, 2013 [facility] [place] [facility] [address] [id number] [place] [address]- 9794 11 Jun, 2013 [facility] [place] [facility] [address] [id number] [place] [address]- 8244 Jun, [facility] [place] [facility] [address] [facility] [id number] [place] [address]- 3475 Jun, [facility] [place] [facility] [address] [facility] [id number] [place] [address]- 6979 Jun, [facility] [place] [facility] [address] [facility] [id number] [place] [address]- 9002 Jun, [facility] [place] [facility] [address] [facility] [id number] [place] [address]- 5957 May, [facility] [place] [facility] [address] [facility] [id number] [place] [address]- 7161 May, [facility] [place] [facility] [address] [facility] [id number] [place] [address]- 1258 May, [facility] [place] [facility] [address] [facility] [id number], [place] [address]- 7358 May, [facility] [place] [facility] [address] [id number] [place] [address]- 8428 May, [facility] [place] [facility] [address] [facility] [id number], [place] [address]- 1817 May, [facility] [place] [facility] [address] [facility] [id number], [place] [address]- 2337 May, [facility] [place] [facility] [address] [id number] [place] [address]- 6593 May, [facility] [place] [facility] [address] [id number] [place] [address]- 8350 May, [facility] [place] [facility] [address] [id number] [place] [address]- 8657 May, [facility] [place] [facility] [address] [id number] [place] [address]- 8232 Apr, [facility] [place] [facility] [address] [id number] [place] [address]- 5349 Apr, [facility] [place] [facility] [address] [id number] [place] [address]- 4998 Apr, [facility] [place] [facility] [address] [id number] [place] [address]- 3435 Apr, [facility] [place] [facility] [address] [id number] [place] [address]- 2627 Apr, [facility] [place] [facility] [address] [id number] [place] [address]- 2191 Apr, [facility] [place] [facility] [address] [id number] [place] [address]- 2604 Apr, [facility] [place] [facility] [address] [id number] [place] [address]- 5333 Apr, [facility] [place] [facility] [address] [id number], [place] [address]- 7211 Apr, [facility] [place] [facility] [address] [id number] [place] [address]- 9854 Apr, [facility] [place] [facility] [address] [id number] [place] [address]- 7660 Mar, [facility] [place] [facility] [address] [id number] [place] [address]- 6472 Mar, [facility] [place] [facility] [address] [id number], [place] [address]- 8031 Mar, [facility] [place] [facility] [address] [id number] [place] [address]- 2284 Mar, [facility] [place] [facility] [address] [id number], [place] [address]- 1919 Mar, [facility] [place] [facility] [address] [facility] [id number] [place] [address]- 7072 Mar, [facility] [place] [facility] [address] [id number], [place] [address]- 0395 Feb, [facility] [place] [facility] [address] [id number] [place] [address]- 7625 Feb, [facility] [place] [facility] [address] [id number] [place] [address]- 3940 Feb, [facility] [place] [facility] [address] [facility] [id number], [place] [address]- 8179 Jan, [facility] [place] [facility] [address] [id number], [place] [address]- 5576 30 Jan, 2013 [facility] [place] [facility] [address] [facility] [id number] [place] [address]- 2523 Jan, [facility] [place] [facility] [address] [facility] [id number], [place] [address]- 5683 Jan, [facility] [place] [facility] [address] [id number], [place] [address]- 3435 15 Jan, 2013 [facility] [place] [facility] [address] [id number], [place] [address]- 0286 15 Jan, 2013 [facility] [place] [facility] [address] [id number], [place] [address]- 2762 Jan, [facility] [place] [facility] [address] [facility] [id number], [place] [address]- 2486 Jan, [facility] [place] [facility] [address] [facility] [id number], [place] [address]- 2263 Jan, [facility] [place] [facility] [address] [id number] [place] [address]- 3200 Jan, [facility] [place] [facility] [address] [id number] [place] [address]- 8936 30 Dec, 2012 [facility] [place] [facility] [address] [id number] [place] [address] 2546 25 Dec, 2012 [facility] [place] [facility] [address] [id number] [place] [address] 2546 11 Dec, 2012 [facility] [place] [facility] [address] [id number] [place] [address] 2546 09 Dec, 2012 [facility] [place] [facility] [address] [id number] [place] [address]- 4146 05 Dec, 2012 [facility] [place] [facility] [address] [id number] [place] [address]- 4398 Dec, 2012 [facility] [place] [facility] [address] [id number] [place] [address]- 9332 Nov, [facility] [place] [facility] [address] [id number] [place] [address] 2540 Nov, [facility] [place] [facility] [address] [id number] [place] [address] 2547 Nov, [facility] [place] [facility] [address] [id number] [place] [address] 254 Nov, [facility] [place] [facility] [address] [id number] [place] [address] 254 Nov, [facility] [place] [facility] [address] [id number] [place] [address] 2547 Nov, [facility] [place] [facility] [address] [id number] [place] [address] 2546 Nov, [facility] [place] [facility] [address] [id number] [place] [address] 2542 Nov, [facility] [place] [facility] [address] [id number] [place] [address]- 9987 Nov, [facility] [address] [id number] [place] [address]- 5451 Nov, [facility] [place] [facility] [address] [id number] [place] [address]- 2625 Nov, [facility] [place] [facility] [address] [id number] [place] [address]- 5075 Nov, [facility] [place] [facility] [address] [id number] [place] [address]- 0397 Oct, [facility] [address] [id number] [place] [address]- 8174 Oct, [facility] [address] [id number] [place] [address]- 5424 Oct, [facility] [address] [id number] [place] [address]- 7048 Sep, [facility] [place] [facility] [address] [id number] [place] [address]- 8167 Sep, [facility] [place] [facility] [address] [id number] [place] [address]- 9828 Sep, [facility] [place] [facility] [address] [id number] [place] [address]- 3982 August, [facility] [place] [facility] [address] [id number] [place] [address]- 9892 August, [facility] [place] [facility] [address] [id number] [place] [address]- 1608 August, [facility] [place] [facility] [address] [id number] [place] [address]- 9568 August, [facility] [place] [facility] [address] [id number] [place] [address]- 4157 August, [facility] [place] [facility] [address] [id number] [place] [address]- 9300 August, [facility] [place] [facility] [address] [id number] [place] [address]- 2918 30 Jul, 2012 [facility] [address] [id number] [place] [address]- 4309 15 Jul, 2012 [facility] [address] [id number] [place] [address]- 3278 11 Jul, 2012 [facility] [address] [id number] [place] [address]- 0702 10 Jul, 2012 [facility] [address] [id number] [place] [address]- 7328 04 Jul, 2012 [facility] [address] [id number] [place] [address]- 3048 04 Jul, 2012 [facility] [address] [id number] [place] [address]- 2845 2012 [facility] [address] [id number] [place] [address]- 4047 20 Jun, 2012 [facility] [address] [id number] [place] [address]- 5096 18 Jun, 2012 [facility] [address] [id number] [place] [address]- 8229 14 Jun, 2012 [facility] [address] [facility] [id number] [place] [address]- 3194 04 Jun, 2012 [facility] [address] [id number] [place] [address]- 2804 13 May, 2012 [facility] [address] [id number] [place] [address]- 9713 12 May, 2012 [facility] [place] [facility] [address] [id number] [place] 4314 11 May, 2012 [facility] [place] [facility] [address] [facility] [id number] [place] [address]- 7615 08 May, 2012 [facility] [place] [facility] [address] [facility] [id number] [place] [address]- 1081 Apr, [facility] [place] [facility] [address] [id number] [place] [address]- 0062 Apr, [facility] [place] [facility] [address] [id number] [place] [address]- 0323 Apr, [facility] [place] [facility] [address] [id number] [place] [address]- 0264 Mar, [facility] [place] [facility] [address] [id number] [place] [address]- 3898 Mar, [facility] [place] [facility] [address] [id number] [place] [address] Mar, [facility] [place] [facility] [address] [id number] [place] [address] Mar, [facility] [place] [facility] [address] [id number] [place] [address] Mar, [facility] [place] [facility] [address] [id number] [place] [address] Mar, [facility] [place] [facility] [address] [id number] [place] [address] Mar, [facility] [place] [facility] [address] [id number] [place] [address] Mar, [facility] [place] [facility] [address] [id number] [place] [address] Feb, [facility] [place] [facility] [address] [id number], [place] [address] Feb, [facility] [place] [facility] [address] [id number] [place] [address] Feb, [facility] [place] [facility] [address] [id number] [place] [address] Feb, [facility] [place] [facility] [address] [id number] [place] [address] Feb, [facility] [place] [facility] [address] [id number], [place] [address] Feb, [facility] [place] [facility] [address] [id number] [place] [address] Feb, [facility] [place] [facility] [address] [facility] [id number], [place] [address] Feb, [facility] [place] [facility] [address] [facility] [id number] [place] [address]- [address] Feb, [facility] [place] [facility] [address] [id number], [place] [address] Feb, [facility] [place] [facility] [address] [facility] [id number] [place] [address], [place] [address]- [address] Feb, [facility] [place] [facility] [address] [facility] [id number] [place] [address]- [address] Feb, [facility] [place] [facility] [id number] [place] [address] Feb, [facility] [place] [facility] [address] [facility] [id number], [place] [address] Feb, [facility] [place] [facility] [address] [id number] [place] [address] Feb, [facility] [place] [facility] [address] [id number], [place] [address] Feb, [facility] [place] [facility] [address] [facility] [id number], [place] [address]- [address] Feb, [facility] [place] [facility] [address] [facility] [id number], [place] [address] Feb, [facility] [place] [facility] [address] [facility] [id number], [place] [address] Jan, [facility] [place] [facility] [address] [facility] [id number], [place] [address] Jan, [facility] [place] [facility] [address] [id number], [place] [address] Jan, [facility] [place] [facility] [address] [id number] [place] [address]- [address] 20 Jan, 2012 [facility] [place] [facility] [address] [id number] [place] [address] 20 Jan, 2012 [facility] [place] [facility] [address] [id number] [place] [address] 19 Jan, 2012 [facility] [place] [facility] [address] [id number] [place] [address]- 1397 18 Jan, 2012 [facility] [place] [facility] [address] [id number] [place] [address]- [address]888 18 Jan, 2012 [facility] [place] [facility] [address] [id number] [place] [address]- 0408 15 Jan, 2012 [facility] [place] [facility] [address] [id number] [place] [address]- 5768 15 Jan, 2012 [facility] [place] [facility] [address] [id number] [place] [address]- 4047 11 Jan, 2012 [facility] [place] [facility] [address] [id number] [place] [address]- 1392 11 Jan, 2012 [facility] [place] [facility] [address] [id number] [place] [address]- [address] 10 Jan, 2012 [facility] [place] [facility] [address] [id number] [place] [address]27 09 Jan, 2012 [facility] [place] [facility] [address] [id number] [place] [address]- [address] 02 Jan, 2012 [facility] [place] [facility] [address] [id number] [place] [address] 29 Dec, 2011 [facility] [place] [facility] [address] [id number] [place] [address]- [address]86 28 Sep2011 [facility] [place] [facility] [address] [id number] [place] [address]- 0078 27 Sep2011 [facility] [place] [facility] [address] [id number] [place] [address]- [address]68 Dec, [facility] [place] [facility] [address] [id number] [place] [address]692 Nov, [facility] [place] [facility] [address] [id number] [place] [address]- 9417 Nov, [facility] [place] [facility] [address] [id number] [place] [address]- 1666 Nov, [facility] [place] [facility] [address] [id number] [place] [address]- [address] Nov, [facility] [place] [facility] [address] [id number] [place] [address]- 4131 Nov, [facility] [place] [facility] [address] [id number] [place] [address]- 3409 Nov, [facility] [place] [facility] [address] [id number] [place] [address]- 3053 Nov, [facility] [place] [facility] [address] [id number] [place] [address]- 9867 Nov, [facility] [place] [facility] [address] [id number] [place] [address]- 1218 Nov, [facility] [place] [facility] [address] [id number] [place] [address]- 3474 Nov, [facility] [place] [facility] [address] [id number] [place] [address]- 9684 Nov, [facility] [place] [facility] [address] [id number] [place] [address]- [address]95 Oct, [facility] [place] [facility] [address] [id number] [place] [address]- [address]348 Oct, [facility] [place] [facility] [address] [id number] [place] [address]- 1777 Oct, [facility] [place] [facility] [address] [id number] [place] [address]- [address] Oct, [facility] [place] [facility] [address] [id number] [place] [address]- 8812 Oct, [facility] [place] [facility] [address] [id number] [place] [address]- 2987 Oct, [facility] [place] [facility] [address] [id number] [place] [address]- 4976 Oct, [facility] [place] [facility] [address] [id number] [place] [address]- 2586 Oct, [facility] [place] [facility] [address] [id number] [place] [address]- [address] Sep, [facility] [place] [facility] [address] [id number] [place] [address]- [address]106 Sep, [facility] [place] [facility] [address] [id number] [place] [address]- [address] Sep, [facility] [place] [facility] [address] [id number] [place] [address]- [address] Sep, [facility] [place] [facility] [address] [id number] [place] [address]- 73[address] Sep, [facility] [place] [facility] [address] [id number] [place] [address]- [address] Sep, [facility] [facility] [address] [id number] [place] [address] Sep, [facility] [place] [facility] [address] [id number] [place] [address] August, [facility] [place] [facility] [address] [id number] [place] [address] August, [facility] [place] [facility] [address] [id number] [place] [address] August, [facility] [place] [facility] [address] [id number] [place] [address] August, [facility] [place] [facility] [address] [id number] [place] [address] August, [facility] [place] [facility] [address] [id number] [place] [address] August, [facility] [address] [id number] [place] [address] August, [facility] [address] [id number] [place] [address] August, [facility] [address] [id number] [place] [address] Jul, [facility] [address] [id number] [place] [address] 17 Jul, 2011 [facility] [address] [id number] [place] [address] Jul, [facility] [address] [id number] [place] [address] Jul, [facility] [address] [id number] [place] [address] Jul, [facility] [address] [id number] [place] [address] Jun, [facility] [address] [id number] [place] [address] Jun, [facility] [address] [id number] [place] [address] Jun, [facility] [place] [place] [facility] [address] [id number] [place] [address] Jun, [facility] [place] [facility] [address] [id number] [place] [address] Jun, [facility] [place] [facility] [address] [id number] [place] [address] Jun, [facility] [address] [id number] [place] [address] Jun, [facility] [place] [facility] [address] [id number] [place] [address] Jun, [facility] [place] [facility] [address] [id number] [place] [address] Jun, [facility] [place] [facility] [address] [id number] [place] [address] May, [facility] [place] [facility] [address] [id number] [place] [address] May, [facility] [place] [facility] [address] [id number] [place] [address] May, [facility] [place] [facility] [address] [id number] [place] [address] May, [facility] [place] [facility] [address] [id number] [place] [address] May, [facility] [place] [facility] [address] [id number] [place] [address] May, [facility] [place] [facility] [address] [id number] [place] [address]- [address] May, [facility] [place] [facility] [address] [id number] [place] [address] May, [facility] [place] [facility] [address] [facility] [id number] [place] [address] Apr, [facility] [place] [facility] [address] [id number] [place] [address] Apr, [facility] [address] [id number] [place] [address] Apr, [facility] [address] [id number] [place] [address]66 Apr, [facility] [place] [facility] [address] [facility] [id number] [place] [address] Apr, [facility] [address] [id number] [place] [address] Apr, [facility] [address] [id number] [place] [address] Mar, [facility] [address] [id number] [place] [address] Mar, [facility] [address] [id number] [place] [address] Mar, [facility] [address] [id number] [place] [address]- [address] Mar, [facility] [address] [id number] [place] [address] 15 Mar, 2011 [facility] [address] [id number] [place] [address]- [address] Mar, [facility] [address] [id number] [place] [address] Mar, [facility] [address] [id number] [place] [address] Mar, [facility] [address] [id number] [place] [address] Mar, [facility] [address] [id number] [place] [address] Mar, [facility] [address] [id number] [place] [address]- [address] Mar, [facility] [address] [id number] [place] [address]- 12[address] Mar, [facility] [address] [id number] [place] [address] Mar, [facility] [facility] [address] [id number] [place] [address] Feb, [facility] [address] [id number] [place] [address] 17 Feb, 2011 [facility] [facility] [address] [id number] [place] [address] Feb, [facility] [address] [id number] [place] [address] 1516 Feb, [facility] [place] [facility] [address] [id number] [place] [address]- [address] Feb, [facility] [facility] [address] [id number] [place] [address] Feb, [facility] [address] [id number] [place] [address] 254 Feb, [facility] [address] [id number] [place] [address] Jan, [facility] [address] [id number] [place] [address]- 284[address] Jan, [facility] [address] [id number] [place] [address] Jan, [facility] [address] [id number] [place] [address] Nov, [facility] [address] [id number] [place] [address]- [address] Mar, [facility] [address] [id number] [place] [address]- 18[address] Mar, [facility] [address] [id number] [place] [address]- [address] Mar, [facility] [address] [id number] [place] [address]- [address] Mar, [facility] [facility] [address] [id number] [place] [address] 2544 Mar, [facility] [address] [id number] [place] [address]- [address] 30 Feb, 2010 [facility] [facility] [address] [id number] [place] [address]- [address] Feb, [facility] [address] [facility] [id number] [place] [address]- [address] 24 Feb, 2010 [facility] [address] [facility] [id number] [place] [address] Feb, [facility] [address] [facility] [id number] [place] [address]- [address] Feb, [facility] [address] [facility] [id number] [place] [address] 15 Feb, 2010 IMMUNIZATIONS No Known Immunizations SOCIAL HISTORY Never Assessed REASON FOR VISIT Referral PLAN OF CARE VITAL SIGNS MEDICATIONS Unknown [...] Mastectomy 02/01/2017 Hospitalization History surgeries Hospitalization History [facility] ED 10/06/2017
--- OUTSIDE RECORDS SUMMARY | 2017-12-22 04:01 | XMS REPORT ---
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 Jun, 2014 [facility] [place] [facility] [address] [id number] [place] [address]- 3958 23 Jun, 2014 [facility] [place] [facility] [address] [id number] [place] [address]- 0291 Jun, [facility] [place] [facility] [address] [id number] [place] [address]- 4933 Jun, [facility] [place] [facility] [address] [id number] [place] [address]- 5620 Jun, [facility] [place] [facility] [address] [id number] [place] [address]- 5299 19 Jun, 2014 [facility] [place] [facility] [address] [id number] [place] [address]- 0560 19 Jun, 2014 [facility] [place] [facility] [address] [id number] [place] [address]- 0718 19 Jun, 2014 [facility] [place] [facility] [address] [id number] [place] [address]- 3488 18 Jun, 2014 [facility] [place] [facility] [address] [id number] [address]- 4998 18 Jun, 2014 [facility] [place] [facility] [address] [id number] [place] [address]- 3155 18 Jun, 2014 [facility] [place] [facility] [address] [id number] [place] [address]- 8898 18 Jun, 2014 [facility] [place] [facility] [address] [id number] [place] [address]- 3753 17 Jun, 2014 [facility] [place] [facility] [address] [id number] [place] [address]- 4816 17 Jun, 2014 [facility] [place] [facility] [address] [id number] [place] [address]- 4768 17 Jun, 2014 [facility] [place] [facility] [address] [id number] [place] [address]- 6664 17 Jun, 2014 [facility] [place] [facility] [address] [id number] [place] [address]- 8306 13 Jun, 2014 [facility] [place] [facility] [address] [id number] [place] [address]- 6218 13 Jun, 2014 [facility] [place] [facility] [address] [id number] [place] [address]- 2092 12 Jun, 2014 [facility] [place] [facility] [address] [id number] [place] [address]- 3173 12 Jun, 2014 [facility] [place] [facility] [address] [id number] [place] [address]- 9535 10 Jun, 2014 [facility] [place] [facility] [address] [id number] [place] [address]- 7072 10 Jun, 2014 [facility] [place] [facility] [address] [id number] [place] [address]- 2452 10 Jun, 2014 [facility] [place] [facility] [address] [id number] [place] [address]- 0276 10 Jun, 2014 [facility] [place] [facility] [address] [id number] [place] [address]- 1914 06 Jun, 2014 [facility] [place] [facility] [address] [id number] [place] [address]- 4526 06 Jun, 2014 [facility] [place] [facility] [address] [id number] [place] [address]- 1021 05 Jun, 2014 [facility] [place] [facility] [address] [id number] [place] [address]- 3770 05 Jun, 2014 [facility] [place] [facility] [address] [id number] [place] [address]- 3750 Jun, 2014 [facility] [place] [facility] [address] [id number] [place] [address]- 1412 Jun, [facility] [place] [facility] [address] [facility] [id number] [place] [address]- 0582 May, 2014 [facility] [place] [facility] [address] [facility] [id number] [place] [address]- 6743 May, 2014 [facility] [place] [facility] [address] [facility] [id number] [place] [address]- 3321 May, 2014 [facility] [place] [facility] [address] [facility] [id number] [place] [address]- 4684 May, 2014 [facility] [place] [facility] [address] [facility] [id number] [place] [address]- 0141 May, 2014 [facility] [place] [facility] [address] [facility] [id number] [place] [address]- 7029 May, 2014 [facility] [place] [facility] [address] [facility] [id number] [place] [address]- 6745 May, 2014 [facility] [place] [facility] [address] [facility] [id number] [place] [address]- 2627 May, 2014 [facility] [place] [facility] [address] [facility] [id number] [place] [address]- 1380 May, 2014 [facility] [place] [facility] [address] [facility] [id number] [place] [address]- 8307 May, 2014 [facility] [place] [facility] [address] [facility] [id number] [place] [address]- 3042 May, 2014 [facility] [place] [facility] [address] [facility] [id number] [place] [address]- 4019 May, 2014 [facility] [place] [facility] [address] [facility] [id number] [place] [address]- 5639 May, 2014 [facility] [place] [facility] [address] [facility] [id number] [place] [address]- 4194 May, 2014 [facility] [place] [facility] [address] [id number] [place] [address]- 0458 May, [facility] [place] [facility] [address] [id number] [place] [address]- 0122 May, [facility] [place] [facility] [address] [id number] [place] [address]- 1559 Apr, [facility] [place] [facility] [address] [id number] [place] [address]- 0952 Apr, [facility] [place] [facility] [address] [id number] [place] [address]- 5524 Apr, [facility] [place] [facility] [address] [id number] [place] [address]- 6111 Apr, [facility] [place] [facility] [address] [id number] [place] [address]- 6840 Apr, [facility] [place] [facility] [address] [id number] [place] [address]- 9513 Apr, [facility] [place] [facility] [address] [id number] [place] [address]- 7860 Apr, [facility] [place] [facility] [address] [id number] [place] [address]- 5939 Apr, [facility] [place] [facility] [address] [id number] [place] [address]- 0928 Apr, [facility] [place] [facility] [address] [id number] [place] [address]- 1421 Apr, [facility] [place] [facility] [address] [id number] [place] [address]- 1906 Apr, [facility] [place] [facility] [address] [id number] [place] [address]- 6829 Apr, [facility] [place] [facility] [address] [id number] [place] [address]- 9850 Apr, [facility] [place] [facility] [address] [id number] [place] [address]- 9603 Apr, [facility] [place] [facility] [address] [id number] [place] [address]- 7227 Apr, [facility] [place] [facility] [address] [id number] [place] [address]- 9546 Mar, [facility] [place] [facility] [address] [id number] [place] 9128 Mar, [facility] [place] [facility] [address] [id number] [place] 7180 Mar, [facility] [place] [facility] [address] [id number] [place] [address]- 4653 Mar, [facility] [place] [facility] [address] [id number] [place] [address]- 0795 Mar, [facility] [place] [facility] [address] [id number] [place] [address]- 1997 Mar, [facility] [place] [facility] [address] [id number] [place] [address]- 2829 15 Mar, 2014 [facility] [place] [facility] [address] [id number] [place] [address]- 9309 Mar, [facility] [place] [facility] [address] [id number] [place] [address]- 4304 Mar, [facility] [place] [facility] [address] [id number] [place] [address]- 5598 15 Mar, 2014 [facility] [place] [facility] [address] [id number] [place] [address]- 6320 15 Mar, 2014 [facility] [place] [facility] [address] [id number] [place] [address]- 1298 Mar, [facility] [place] [facility] [address] [id number] [place] [address]- 4714 Mar, [facility] [place] [facility] [address] [id number] [place] [address]- 0727 Mar, [facility] [place] [facility] [address] [id number] [place] [address]- 5715 Mar, [facility] [place] [facility] [address] [id number] [place] [address] Mar, [facility] [place] [facility] [address] [id number] [place] [address] Mar, [facility] [place] [facility] [address] [id number] [place] [address] Mar, [facility] [place] [facility] [address] [id number] [place] [address] Feb, [facility] [place] [facility] [address] [id number] [place] [address] Feb, [facility] [place] [facility] [address] [id number] [place] [address] Feb, [facility] [place] [facility] [address] [id number] [place] [address] Feb, [facility] [place] [facility] [address] [id number] [place] [address] Feb, [facility] [place] [facility] [address] [id number] [place] [address] Feb, [facility] [place] [facility] [address] [facility] [id number] [place] [address] Feb, [facility] [place] [facility] [address] [id number] [place] [address] Feb, [facility] [place] [facility] [address] [id number] [place] [address] Jan, [facility] [place] [facility] [address] [id number] [place] [address]- [address] Jan, [facility] [place] [facility] [address] [id number] [place] [address]- [address] Jan, [facility] [place] [facility] [address] [id number] [place] [address] Jan, [facility] [place] [facility] [address] [id number] [place] [address]- [address] Jan, [facility] [place] [facility] [address] [id number] [place] [address] Jan, [facility] [place] [facility] [address] [id number] [place] [address] Jan, [facility] [place] [facility] [address] [id number] [place] [address]- [address] Jan, [facility] [place] [facility] [address] [id number] [place] [address] Jan, [facility] [place] [facility] [address] [id number] [place] [address]- [address] Jan, [facility] [place] [facility] [address] [id number] [place] [address]- [address] Jan, [facility] [place] [facility] [address] [id number] [place] [address]- 8668 Jan, [facility] [place] [facility] [address] [id number] [place] [address]- [address] Jan, [facility] [place] [facility] [address] [id number] [place] [address]- [address] Jan, [facility] [place] [facility] [address] [id number] [place] [address] Jan, [facility] [place] [facility] [address] [id number] [place] [address] 16 Jan, 2014 [facility] [place] [facility] [address] [id number] [place] [address] Jan, [facility] [place] [facility] [address] [id number] [place] [address] Jan, [facility] [place] [facility] [address] [id number] [place] [address] 29 Dec, 2013 [facility] [place] [facility] [address] [id number] [place] [address] 29 Sep, 2013 [facility] [place] [facility] [address] [id number] [place] [address] 26 Sep, 2013 [facility] [place] [facility] [address] [id number] [place] [address]46 26 Sep, 2013 [facility] [place] [facility] [address] [id number] [place] [address]46 26 Sep, 2013 [facility] [place] [facility] [address] [id number] [place] [address] 254 26 Sep, 2013 [facility] [place] [facility] [address] [id number] [place] [address]- [address] 23 Sep, 2013 [facility] [place] [facility] [address] [id number] [place] [address]- [address] 23 Sep, 2013 [facility] [place] [facility] [address] [id number] [place] [address]- [address] 22 Dec, 2013 [facility] [place] [facility] [address] [id number] [place] [address]- [address] 22 Sep, 2013 [facility] [place] [facility] [address] [id number] [place] [address] 25[address] 16 Sep, 2013 [facility] [place] [facility] [address] [id number] [place] [address] 25[address] 16 Sep, 2013 [facility] [place] [facility] [address] [id number] [place] [address] 15 Sep, 2013 [facility] [place] [facility] [address] [id number] [place] [address]- [address] 15 Sep, 2013 [facility] [place] [facility] [address] [id number] [place] [address]48 09 Sep, 2013 [facility] [place] [facility] [address] [id number] [place] [address] 2543 03 Sep, 2013 [facility] [place] [facility] [address] [id number] [place] [address] 2542 03 Sep, 2013 [facility] [place] [facility] [address] [id number] [place] [address] Nov, [facility] [place] [facility] [address] [id number] [place] [address]- [address] Nov, [facility] [place] [facility] [address] [id number] [place] [address]- [address] Nov, [facility] [place] [facility] [address] [id number] [place] [address]- [address] Nov, [facility] [place] [facility] [address] [id number] [place] [address]- [address] Nov, [facility] [place] [facility] [address] [id number] [place] [address]- 1985 Nov, [facility] [place] [facility] [address] [id number] [place] [address]- [address] Nov, [facility] [place] [facility] [address] [id number] [place] [address] Nov, [facility] [place] [facility] [address] [id number] [place] [address] Nov, [facility] [place] [facility] [address] [id number] [place] [address] 7917 Nov, [facility] [place] [facility] [address] [id number] [place] [address] 6915 Nov, [facility] [place] [facility] [address] [id number] [place] [address] 6366 Nov, [facility] [place] [facility] [address] [id number] [place] [address]- 2464 Nov, [facility] [place] [facility] [address] [id number] [place] [address] 3714 Nov, [facility] [place] [facility] [address] [id number] [place] [address] 7322 Nov, [facility] [place] [facility] [address] [id number] [place] [address] 1891 Nov, [facility] [place] [facility] [address] [id number] [place] [address] 0495 Nov, [facility] [place] [facility] [address] [id number] [place] [address] 7598 Nov, [facility] [place] [facility] [address] [id number] [place] [address] 3599 Nov, [facility] [place] [facility] [address] [id number] [place] [address]- 3279 Nov, [facility] [place] [facility] [address] [id number] [place] [address]- 4885 Nov, [facility] [place] [facility] [address] [id number] [place] [address] 7642 Oct, [facility] [place] [facility] [address] [id number] [place] [address]- 1549 Oct, [facility] [place] [facility] [address] [id number] [place] [address]- 5983 Oct, [facility] [place] [facility] [address] [id number] [place] [address]- 5351 Oct, [facility] [place] [facility] [address] [id number] [place] [address]- 5674 Oct, [facility] [place] [facility] [address] [id number] [place] [address]- 0251 Oct, [facility] [place] [facility] [address] [id number] [place] [address]- 3123 Oct, [facility] [place] [facility] [address] [id number] [place] [address]- 6289 Oct, [facility] [place] [facility] [address] [id number] [place] [address]- 5796 Oct, [facility] [place] [facility] [address] [id number] [place] [address]- 6538 Oct, [facility] [place] [facility] [address] [id number] [place] [address]- 9911 Oct, [facility] [place] [facility] [address] [id number] [place] [address]- 8678 Oct, [facility] [place] [facility] [address] [id number] [place] [address]- 0593 Oct, [facility] [place] [facility] [address] [id number] [place] [address]- 7200 Oct, [facility] [place] [facility] [address] [id number] [place] [address]- 9421 Oct, [facility] [place] [facility] [address] [id number] [place] [address]- 8934 Sep, [facility] [place] [facility] [address] [id number] [place] [address]- 2412 Sep, [facility] [place] [facility] [address] [id number] [place] [address]- 5694 Sep, [facility] [place] [facility] [address] [id number] [place] [address]- 1431 Sep, [facility] [place] [facility] [address] [id number] [place] [address]- 5153 Sep, [facility] [place] [facility] [address] [id number] [place] [address]- 4133 Sep, [facility] [place] [facility] [address] [id number] [place] [address]- 1034 Sep, [facility] [place] [facility] [address] [id number] [place] [address]- 2427 18 Sep, 2013 [facility] [place] [facility] [address] [id number] [place] [address]- 3172 17 Sep, 2013 [facility] [place] [facility] [address] [id number] [place] [address]- 0142 16 Sep, 2013 [facility] [place] [facility] [address] [id number] [place] [address]- 0780 Sep, [facility] [place] [facility] [address] [id number] [place] [address]- 5674 Sep, [facility] [place] [facility] [address] [id number] [place] [address]- 3042 Sep, [facility] [place] [facility] [address] [id number] [place] [address]- 7858 Sep, [facility] [place] [facility] [address] [id number] [place] [address]- 1880 Sep, [facility] [place] [facility] [address] [id number] [place] [address]- 6017 Sep, [facility] [place] [facility] [address] [id number] [place] [address]- 7914 Sep, [facility] [place] [facility] [address] [id number] [place] [address]- 0715 Sep, [facility] [place] [facility] [address] [id number] [place] [address]- 7663 Sep, [facility] [place] [facility] [address] [id number] [place] [address]- 1840 Sep, [facility] [place] [facility] [address] [id number] [place] [address]- 0460 Sep, [facility] [place] [facility] [address] [id number] [place] [address]- 4939 Sep, [facility] [place] [facility] [address] [id number] [place] [address]- 7395 August, [facility] [place] [facility] [address] [id number] [place] [address]- 9151 August, [facility] [place] [facility] [address] [id number] [place] [address]- 2881 August, [facility] [place] [facility] [address] [id number] [place] [address]- 9126 August, [facility] [place] [facility] [address] [id number] [place] [address]- 0588 August, [facility] [place] [facility] [address] [id number] [place] [address] August, [facility] [place] [facility] [address] [id number] [place] [address]- 4572 August, [facility] [place] [facility] [address] [id number] [place] [address]- 3225 August, [facility] [place] [facility] [address] [id number] [place] [address]- 6770 August, [facility] [place] [facility] [address] [id number] [place] [address]- 7757 August, [facility] [place] [facility] [address] [id number] [place] [address]- 7022 August, [facility] [place] [facility] [address] [id number] [place] [address]- 6711 August, [facility] [place] [facility] [address] [id number] [place] [address]- 2933 August, [facility] [place] [facility] [address] [id number] [place] [address] 9901 August, [facility] [place] [facility] [address] [id number] [place] [address]- 8663 August, [facility] [place] [facility] [address] [id number] [place] [address]- 6455 August, [facility] [place] [facility] [address] [id number] [place] [address]- 7927 August, [facility] [place] [facility] [address] [id number] [place] [address]- 8541 August, [facility] [place] [facility] [address] [id number] [place] [address]- 0492 Jul, [facility] [place] [facility] [address] [id number] [place] [address]- 7808 Jul, [facility] [place] [facility] [address] [id number] [place] [address]- 4575 Jul, [facility] [address] [id number] [place] [address]- 2782 Jul, [facility] [address] [id number] [place] [address]- 1689 24 Jul, 2013 [facility] [address] [id number] [place] [address]- 6108 Jul, [facility] [address] [id number] [place] [address]- 5754 Jul, [facility] [address] [id number] [place] [address]- 6473 Jul, [facility] [address] [id number] [place] [address]- 5608 Jul, [facility] [address] [id number] [place] [address]- 7591 Jul, [facility] [address] [id number] [place] [address]- 2894 Jul, [facility] [address] [id number] [place] [address]- 3804 Jul, [facility] [address] [id number] [place] [address]- 1466 Jul, [facility] [place] [facility] [address] [id number] [place] [address]- 5863 Jul, [facility] [place] [facility] [address] [id number] [place] [address]- 1952 Jul, [facility] [place] [facility] [address] [id number] [place] [address]- 9267 Jul, [facility] [place] [facility] [address] [id number] [place] [address]- 3300 Jul, [facility] [place] [facility] [address] [id number] [place] [address]- 8063 16 Jul, 2013 [facility] [place] [facility] [address] [id number] [place] [address]- 5069 16 Jul, 2013 [facility] [place] [facility] [address] [id number] [place] [address]- 7882 15 Jul, 2013 [facility] [place] [facility] [address] [id number] [place] [address]- 3791 15 Jul, 2013 [facility] [place] [facility] [address] [id number] [place] [address]- 5092 14 Jul, 2013 [facility] [place] [facility] [address] [id number] [place] [address]- 4461 14 Jul, 2013 [facility] [place] [facility] [address] [id number] [place] [address]- 0199 12 Jul, 2013 [facility] [place] [facility] [address] [id number] [place] [address]- 8063 Jul, [facility] [place] [facility] [address] [id number] [place] [address]- 5864 Jul, [facility] [place] [facility] [address] [id number] [place] [address]- 8999 Jul, [facility] [place] [facility] [address] [id number] [place] [address]- 3769 Jul, [facility] [place] [facility] [address] [id number] [place] [address]- 1625 Jul, [facility] [place] [facility] [address] [id number] [place] [address]- 6707 17 Jun, 2013 [facility] [place] [facility] [address] [id number] [place] [address]- 8548 Jun, [facility] [place] [facility] [address] [id number] [place] [address]- 1944 17 Jun, 2013 [facility] [place] [facility] [address] [id number] [place] 17 Jun, 2013 [facility] [place] [facility] [address] [id number] [place] [address]- 2958 13 Jun, 2013 [facility] [place] [facility] [address] [id number] [place] [address]- 3396 13 Jun, 2013 [facility] [place] [facility] [address] [id number] [place] [address]- 7990 Jun, [facility] [place] [facility] [address] [facility] [id number] [place] [address]- 4094 Jun, [facility] [place] [facility] [address] [id number] [place] [address]- 6535 Jun, [facility] [place] [facility] [address] [id number] [place] [address]- 8106 Jun, [facility] [place] [facility] [address] [facility] [id number] [place] [address]- 8905 Jun, [facility] [place] [facility] [address] [facility] [id number] [place] [address]- 8922 Jun, [facility] [place] [facility] [address] [facility] [id number] [place] [address]- 4261 May, [facility] [place] [facility] [address] [facility] [id number] [place] [address]- 5145 May, [facility] [place] [facility] [address] [facility] [id number] [place] [address]- 2854 May, [facility] [place] [facility] [address] [facility] [id number] [place] [address]- 1903 May, [facility] [place] [facility] [address] [facility] [id number] [place] [address]- 5690 May, [facility] [place] [facility] [address] [facility] [id number] [place] [address]- 8800 May, [facility] [place] [facility] [address] [facility] [id number] [place] [address]- 3133 May, [facility] [place] [facility] [address] [facility] [id number] [place] [address]- 3991 May, [facility] [place] [facility] [address] [id number] [place] [address]- 3261 May, [facility] [place] [facility] [address] [id number] [place] 1276 May, [facility] [place] [facility] [address] [id number] [place] [address]- 5557 Apr, [facility] [place] [facility] [address] [id number] [place] [address]- 7538 Apr, [facility] [place] [facility] [address] [id number] [place] [address]- 0023 Apr, [facility] [place] [facility] [address] [id number] [place] [address]- 4845 Apr, [facility] [place] [facility] [address] [id number] [place] [address]- 7809 Apr, [facility] [place] [facility] [address] [id number] [place] [address]- 8959 Apr, [facility] [place] [facility] [address] [id number] [place] [address]- 1203 Apr, [facility] [place] [facility] [address] [id number] [place] [address]- 7715 Apr, [facility] [place] [facility] [address] [id number] [place] [address]- 0393 Apr, [facility] [place] [facility] [address] [id number] [place] [address]- 6065 Apr, [facility] [place] [facility] [address] [id number] [place] [address]- 9091 Mar, [facility] [place] [facility] [address] [id number] [place] [address]- 2956 Mar, [facility] [place] [facility] [address] [id number] [place] [address]- 6768 Mar, [facility] [place] [facility] [address] [id number] [place] [address]- 9607 Mar, [facility] [place] [facility] [address] [id number] [place] [address]- 3990 Mar, [facility] [place] [facility] [address] [id number] [place] [address]- 5194 Mar, [facility] [place] [facility] [address] [id number] [place] [address]- 8629 Feb, [facility] [place] [facility] [address] [id number] [place] [address]- 3691 Feb, [facility] [place] [facility] [address] [id number] [place] [address]- 4236 Feb, [facility] [place] [facility] [address] [id number] [place] [address]- 0925 Jan, [facility] [place] [facility] [address] [id number] [place] [address]- 7610 Jan, [facility] [place] [facility] [address] [id number] [place] [address]- 9305 Jan, [facility] [place] [facility] [address] [id number] [place] [address]- 0346 Jan, [facility] [place] [facility] [address] [facility] [id number] [place] [address]- 2370 Jan, [facility] [place] [facility] [address] [id number] [place] [address]- 8000 Jan, [facility] [place] [facility] [address] [id number] [place] [address]- 8155 Jan, [facility] [place] [facility] [address] [id number] [place] [address]- 3571 Jan, [facility] [place] [facility] [address] [facility] [id number] [place] [address]- 9366 Jan, [facility] [place] [facility] [address] [facility] [id number] [place] [address]- 4430 Jan, [facility] [place] [facility] [address] [id number] [place] [address] 2549 30 Dec, 2012 [facility] [place] [facility] [address] [id number] [place] [address]- 9366 25 Dec, 2012 [facility] [place] [facility] [address] [id number] [place] [address] 2546 11 Dec, 2012 [facility] [place] [facility] [address] [id number] [place] [address] 2546 09 Dec, 2012 [facility] [place] [facility] [address] [id number] [place] [address] 2546 05 Dec, 2012 [facility] [place] [facility] [address] [id number] [place] [address]- 5716 04 Dec, 2012 [facility] [place] [facility] [address] [id number] [place] [address]- 4511 30 Nov, 2012 [facility] [place] [facility] [address] [id number] [place] [address]- 9409 Nov, [facility] [place] [facility] [address] [id number] [place] [address] 254 Nov, [facility] [place] [facility] [address] [id number] [place] [address] 2544 Nov, [facility] [place] [facility] [address] [id number] [place] [address] 2540 Nov, [facility] [place] [facility] [address] [id number] [place] [address] 2541 Nov, [facility] [place] [facility] [address] [id number] [place] [address] 2543 Nov, [facility] [place] [facility] [address] [id number] [place] [address] 2546 Nov, [facility] [place] [facility] [address] [id number] [place] [address]- 2545 Nov, [facility] [place] [facility] [address] [id number] [place] [address]- 3379 Nov, [facility] [address] [id number] [place] [address]- 3274 Nov, [facility] [place] [facility] [address] [id number] [place] [address]- 6826 Nov, [facility] [address] [id number] [place] [address]- 9408 Oct, [facility] [place] [facility] [address] [id number] [place] [address]- 0542 Oct, [facility] [address] [id number] [place] [address]- 1869 Oct, [facility] [address] [id number] [place] [address]- 5574 Sep, [facility] [address] [id number] [place] [address]- 1860 Sep, [facility] [place] [facility] [address] [id number] [place] [address]- 0513 Sep, [facility] [address] [id number] [place] [address]- 7654 August, [facility] [place] [facility] [address] [id number] [place] [address]- 9075 August, [facility] [place] [facility] [address] [id number] [place] [address]- 5760 August, [facility] [place] [facility] [address] [id number] [place] [address]- 2170 August, [facility] [place] [facility] [address] [id number] [place] [address]- 4235 August, [facility] [place] [facility] [address] [id number] [place] [address]- 2206 August, [facility] [place] [facility] [address] [id number] [place] [address]- 0244 Jul, [facility] [place] [facility] [address] [id number] [place] [address]- 9112 15 Jul, 2012 [facility] [address] [id number] [place] [address]- 5330 11 Jul, 2012 [facility] [address] [id number] [place] [address]- 2590 10 Jul, 2012 [facility] [address] [id number] [place] [address]- 8895 04 Jul, 2012 [facility] [address] [id number] [place] [address]- 0571 04 Jul, 2012 [facility] [address] [id number] [place] [address]- 4296 2012 [facility] [address] [id number] [place] [address]- 9789 20 Jun, 2012 [facility] [address] [id number] [place] [address]- 2391 18 Jun, 2012 [facility] [address] [id number] [place] [address]- 2391 14 Jun, 2012 [facility] [address] [id number] [place] [address]- 4532 04 Jun, 2012 [facility] [address] [facility] [id number] [place] [address]- 1692 13 May, 2012 [facility] [place] [facility] [address] [id number] [place] [address]- 7263 12 May, 2012 [facility] [place] [facility] [address] [id number] [place] [address]- 6903 11 May, 2012 [facility] [place] [facility] [address] [id number] [place] [address]- 1669 08 May, 2012 [facility] [place] [facility] [address] [id number] [place] [address]- 4995 17 Apr, 2012 [facility] [place] [facility] [address] [id number] [place] [address]- 3526 Apr, [facility] [place] [facility] [address] [id number] [place] [address]- 0896 Apr, [facility] [place] [facility] [address] [id number] [place] [address]- 8085 Mar, [facility] [place] [facility] [address] [id number] [place] [address]- 1107 Mar, [facility] [place] [facility] [address] [id number] [place] [address]- 9960 Mar, [facility] [place] [facility] [address] [id number] [place] [address] Mar, [facility] [place] [facility] [address] [id number] [place] [address] Mar, [facility] [place] [facility] [address] [id number] [place] [address] Mar, [facility] [place] [facility] [address] [id number] [place] [address] Mar, [facility] [place] [facility] [address] [id number] [place] [address] Mar, [facility] [place] [facility] [address] [id number] [place] [address] Feb, [facility] [place] [facility] [address] [id number] [place] [address] Feb, [facility] [place] [facility] [address] [id number] [place] [address] Feb, [facility] [place] [facility] [address] [id number] [place] [address] Feb, [facility] [place] [facility] [address] [id number] [place] [address] Feb, [facility] [place] [facility] [address] [id number] [place] [address] Feb, [facility] [place] [facility] [address] [id number] [place] [address] Feb, [facility] [place] [facility] [address] [id number] [place] [address]- 11[address] Feb, [facility] [place] [facility] [address] [facility] [id number] [place] [address] Feb, [facility] [place] [facility] [address] [facility] [id number] [place] [address]- 4[address] Feb, [facility] [place] [facility] [address] [facility] [id number] [place] [address]- 74[address] Feb, [facility] [place] [facility] [address] [facility] [id number] [place] [address], [place] [address]- [address] Feb, [facility] [place] [facility] [address] [facility] [id number] [place] [address]- 8618 Feb, [facility] [place] [facility] [id number] [place] [address] Feb, [facility] [place] [facility] [address] [facility] [id number] [place] [address]- [address] Feb, [facility] [place] [facility] [address] [id number] [address] Feb, [facility] [place] [facility] [address] [id number] [place] [address]- [address] Feb, [facility] [place] [facility] [address] [facility] [id number] [place] [address]- [address] Feb, [facility] [place] [facility] [address] [facility] [id number] [place] [address]- [address] Jan, [facility] [place] [facility] [address] [facility] [id number] [place] [address]- 59[address] Jan, [facility] [place] [facility] [address] [facility] [id number] [place] [address] Jan, [facility] [place] [facility] [address] [id number] [place] [address] 1986 Jan, [facility] [place] [facility] [address] [id number] [place] [address] 20 Jan, 2012 [facility] [place] [facility] [address] [id number] [place] [address]- 8636 19 Jan, 2012 [facility] [place] [facility] [address] [id number] [place] [address]- [address]16 18 Jan, 2012 [facility] [place] [facility] [address] [id number] [place] [address]- 6321 18 Jan, 2012 [facility] [place] [facility] [address] [id number] [place] [address]- [address]659 15 Jan, 2012 [facility] [place] [facility] [address] [id number] [place] [address]- [address]16 15 Jan, 2012 [facility] [place] [facility] [address] [id number] [place] [address]- 0035 11 Jan, 2012 [facility] [place] [facility] [address] [id number] [place] [address]- 1742 11 Jan, 2012 [facility] [place] [facility] [address] [id number] [place] [address]- [address]481 10 Jan, 2012 [facility] [place] [facility] [address] [id number] [place] [address]- [address] 09 Jan, 2012 [facility] [place] [facility] [address] [id number] [place] [address]- 2965 02 Jan, 2012 [facility] [place] [facility] [address] [id number] [place] [address]- [address] 29 Dec, 2011 [facility] [place] [facility] [address] [id number] [place] [address]- [address]40 28 Dec, 2011 [facility] [place] [facility] [address] [id number] [place] [address]- [address] 27 Dec, 2011 [facility] [place] [facility] [address] [id number] [place] [address]- [address]46 26 Dec, 2011 [facility] [place] [facility] [address] [id number] [place] [address]- 73[address] Nov, [facility] [place] [facility] [address] [id number] [place] [address]- [address]195 Nov, [facility] [place] [facility] [address] [id number] [place] [address]- [address]127 Nov, [facility] [place] [facility] [address] [id number] [place] [address]- 1628 Nov, [facility] [place] [facility] [address] [id number] [place] [address]- [address]255 Nov, [facility] [place] [facility] [address] [id number] [place] [address]- [address] Nov, [facility] [place] [facility] [address] [id number] [place] [address]- 29[address] Nov, [facility] [place] [facility] [address] [id number] [place] [address]- 5[address] Nov, [facility] [place] [facility] [address] [id number] [place] [address]- [address]121 Nov, [facility] [place] [facility] [address] [id number] [place] [address]- [address]897 Nov, [facility] [place] [facility] [address] [id number] [place] [address]- 9253 Nov, [facility] [place] [facility] [address] [id number] [place] [address]- [address]100 Oct, [facility] [place] [facility] [address] [id number] [place] [address]- 6316 Oct, [facility] [place] [facility] [address] [id number] [place] [address]- 8718 Oct, [facility] [place] [facility] [address] [id number] [place] [address]- 9980 Oct, [facility] [place] [facility] [address] [id number] [place] [address]- 1174 Oct, [facility] [place] [facility] [address] [id number] [place] [address]- 0880 Oct, [facility] [place] [facility] [address] [id number] [place] [address]- 1385 Oct, [facility] [place] [facility] [address] [id number] [place] [address] Oct, [facility] [place] [facility] [address] [id number] [place] [address]- 8234 Sep, [facility] [place] [facility] [address] [id number] [place] [address]- [address]64 Sep, [facility] [place] [facility] [address] [id number] [place] [address]- 9724 Sep, [facility] [place] [facility] [address] [id number] [place] [address]- 9474 Sep, [facility] [place] [facility] [address] [id number] [place] [address]- 8926 Sep, [facility] [place] [facility] [address] [id number] [place] [address]- 5910 Sep, [facility] [place] [facility] [address] [id number] [place] [address]- [address] Sep, [facility] [place] [facility] [address] [id number] [place] [address] August, [facility] [place] [facility] [address] [id number] [place] [address] August, [facility] [place] [facility] [address] [id number] [place] [address] August, [facility] [place] [facility] [address] [id number] [place] [address] August, [facility] [place] [facility] [address] [id number] [place] [address] August, [facility] [place] [facility] [address] [id number] [place] [address] August, [facility] [place] [facility] [address] [id number] [place] [address] August, [facility] [address] [id number] [place] [address] August, [facility] [address] [id number] [place] [address] Jul, [facility] [address] [id number] [place] [address] 17 Jul, 2011 [facility] [address] [id number] [place] [address] 13 Jul, 2011 [facility] [address] [id number] [place] [address] Jul, [facility] [address] [id number] [place] [address] Jul, [facility] [address] [id number] [place] [address] 28 Jun, 2011 [facility] [address] [id number] [place] [address] 2011 [facility] [address] [id number] [place] [address] 20 Jun, 2011 [facility] [address] [id number] [place] [address] Jun, [facility] [place] [facility] [address] [id number] [place] [address] Jun, [facility] [place] [facility] [address] [id number] [place] [address] Jun, [facility] [place] [facility] [address] [id number] [place] [address] Jun, [facility] [place] [facility] [address] [id number] [place] [address] 07 Jun, 2011 [facility] [place] [facility] [address] [id number] [place] [address] Jun, [facility] [place] [facility] [address] [id number] [place] [address] May, [facility] [place] [facility] [address] [id number] [place] [address] May, [facility] [place] [facility] [address] [id number] [place] [address] May, [facility] [place] [facility] [address] [id number] [place] [address] May, [facility] [place] [facility] [address] [id number] [place] [address] May, [facility] [place] [facility] [address] [id number] [place] [address] May, [facility] [address] [id number] [place] [address] May, [facility] [place] [facility] [address] [id number] [place] [address] May, [facility] [place] [facility] [address] [id number] [place] [address] Apr, [facility] [place] [facility] [address] [facility] [id number] [place] [address] Apr, [facility] [place] [facility] [address] [id number] [place] [address] Apr, [facility] [place] [facility] [address] [id number] [place] [address] Apr, [facility] [place] [facility] [address] [id number] [place] [address] Apr, [facility] [place] [facility] [address] [facility] [id number] [place] [address] Apr, [facility] [place] [facility] [address] [id number] [place] [address] Mar, [facility] [place] [facility] [address] [id number] [place] [address] 29 Mar, 2011 [facility] [address] [id number] [place] [address] Mar, [facility] [place] [facility] [address] [id number] [place] [address] Mar, [facility] [address] [id number] [place] [address] 15 Mar, 2011 [facility] [address] [id number] [place] [address] Mar, [facility] [address] [id number] [place] [address] Mar, [facility] [address] [id number] [place] [address] Mar, [facility] [address] [id number] [place] [address] Mar, [facility] [address] [id number] [place] [address] Mar, [facility] [address] [id number] [place] [address] Mar, [facility] [place] [facility] [address] [id number] [place] [address] Mar, [facility] [place] [facility] [address] [id number] [place] [address]69 Mar, [facility] [place] [facility] [address] [id number] [place] [address] Feb, [facility] [place] [facility] [address] [id number] [place] [address] Feb, [facility] [place] [facility] [address] [id number] [place] [address] Feb, [facility] [place] [facility] [address] [id number] [place] [address] Feb, [facility] [place] [facility] [address] [id number] [place] [address] Feb, [facility] [place] [facility] [address] [id number] [place] [address] Feb, [facility] [place] [facility] [address] [id number] [place] [address] Feb, [facility] [place] [facility] [address] [id number] [place] [address] Jan, [facility] [place] [facility] [address] [id number] [place] [address] Jan, [facility] [place] [facility] [address] [id number] [place] [address] Jan, [facility] [place] [facility] [address] [id number] [place] [address] Nov, [facility] [place] [facility] [address] [id number] [place] [address] Mar, [facility] [place] [facility] [address] [id number] [place] [address] Mar, [facility] [place] [facility] [address] [id number] [place] [address]- [address] Mar, [facility] [place] [facility] [address] [id number] [place] [address]- [address] Mar, [facility] [place] [facility] [address] [id number] [place] [address]- [address]261 Mar, [facility] [place] [facility] [address] [id number] [place] [address] 2541 30 Feb, 2010 [facility] [place] [facility] [address] [id number] [place] [address]- [address] 30 Feb, 2010 [facility] [place] [facility] [address] [id number] [place] [address]- 254 Feb, [facility] [place] [facility] [address] [facility] [id number] [place] [address] 19 Feb, 2010 [facility] [address] [facility] [id number] [place] [address] 19 Feb, 2010 [facility] [address] [facility] [id number] [place] [address] 15 Feb, 2010 IMMUNIZATIONS No Known Immunizations SOCIAL HISTORY Never Assessed REASON FOR VISIT Referal requested PLAN OF CARE VITAL SIGNS MEDICATIONS Unknown [...]
--- OUTSIDE RECORDS SUMMARY | 2017-12-22 04:02 | XMS REPORT ---
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 [facility] [place] [facility] [address] [id number] [place] [address]- 9491 23 Jun, 2014 [facility] [place] [facility] [address] [id number] [place] [address]- 2700 23 Jun, 2014 [facility] [place] [facility] [address] [id number] [place] [address]- 7614 23 Jun, 2014 [facility] [place] [facility] [address] [id number] [place] [address]- 9134 23 Jun, 2014 [facility] [place] [facility] [address] [id number] [place] [address]- 7082 23 Jun, 2014 [facility] [place] [facility] [address] [id number] [place] [address]- 2888 19 Jun, 2014 [facility] [place] [facility] [address] [id number] [place] [address]- 4917 19 Jun, 2014 [facility] [place] [facility] [address] [id number] [place] [address]- 3444 19 Jun, 2014 [facility] [place] [facility] [address] [id number] [place] [address]- 1750 19 Jun, 2014 [facility] [place] [facility] [address] [id number] [place] [address]- 5932 18 Jun, 2014 [facility] [place] [facility] [address] [id number] [place] [address]- 3734 18 Jun, 2014 [facility] [place] [facility] [address] [id number] [address]- 2930 18 Jun, 2014 [facility] [place] [facility] [address] [id number] [place] [address]- 6553 18 Jun, 2014 [facility] [place] [facility] [address] [id number] [place] [address]- 4290 17 Jun, 2014 [facility] [place] [facility] [address] [id number] [place] [address]- 0749 17 Jun, 2014 [facility] [place] [facility] [address] [id number] [place] [address]- 9846 17 Jun, 2014 [facility] [place] [facility] [address] [id number] [place] [address]- 1418 17 Jun, 2014 [facility] [place] [facility] [address] [id number] [place] [address]- 1476 13 Jun, 2014 [facility] [place] [facility] [address] [id number] [place] [address]- 0047 13 Jun, 2014 [facility] [place] [facility] [address] [id number] [place] [address]- 9747 12 Jun, 2014 [facility] [place] [facility] [address] [id number] [place] [address]- 7071 12 Jun, 2014 [facility] [place] [facility] [address] [id number] [place] [address]- 7558 10 Jun, 2014 [facility] [place] [facility] [address] [id number] [place] [address]- 5578 10 Jun, 2014 [facility] [place] [facility] [address] [id number] [place] [address]- 1005 10 Jun, 2014 [facility] [place] [facility] [address] [id number] [place] [address]- 8097 10 Jun, 2014 [facility] [place] [facility] [address] [id number] [place] [address]- 4053 06 Jun, 2014 [facility] [place] [facility] [address] [id number] [place] [address]- 9872 06 Jun, 2014 [facility] [place] [facility] [address] [id number] [place] [address]- 9436 05 Jun, 2014 [facility] [place] [facility] [address] [id number] [place] [address]- 7425 05 Jun, 2014 [facility] [place] [facility] [address] [id number] [place] [address]- 1545 Jun, 2014 [facility] [place] [facility] [address] [id number] [place] [address]- 1507 Jun, [facility] [place] [facility] [address] [id number] [place] [address]- 3242 May, 2014 [facility] [place] [facility] [address] [facility] [id number] [place] [address]- 0676 May, 2014 [facility] [place] [facility] [address] [facility] [id number] [place] [address]- 4001 May, 2014 [facility] [place] [facility] [address] [facility] [id number] [place] [address]- 0740 May, 2014 [facility] [place] [facility] [address] [facility] [id number] [place] [address]- 4104 May, 2014 [facility] [place] [facility] [address] [facility] [id number] [place] [address]- 0004 May, 2014 [facility] [place] [facility] [address] [facility] [id number] [place] [address]- 0558 May, 2014 [facility] [place] [facility] [address] [facility] [id number] [place] [address]- 6851 May, 2014 [facility] [place] [facility] [address] [facility] [id number] [place] [address]- 5209 May, 2014 [facility] [place] [facility] [address] [facility] [id number] [place] [address]- 0618 May, 2014 [facility] [place] [facility] [address] [facility] [id number] [place] [address]- 0638 May, 2014 [facility] [place] [facility] [address] [facility] [id number] [place] [address]- 6175 May, 2014 [facility] [place] [facility] [address] [facility] [id number] [place] [address]- 1357 May, 2014 [facility] [place] [facility] [address] [facility] [id number] [place] [address]- 2240 May, 2014 [facility] [place] [facility] [id number] [place] [address]- 9398 May, 2014 [facility] [place] [facility] [address] [id number] [place] [address]- 1000 May, [facility] [place] [facility] [address] [id number] [place] [address]- 0155 Apr, [facility] [place] [facility] [address] [id number] [place] [address]- 8674 Apr, [facility] [place] [facility] [address] [id number] [place] [address]- 8882 Apr, [facility] [place] [facility] [address] [id number] [place] [address]- 2192 Apr, [facility] [place] [facility] [address] [id number] [place] [address]- 0077 Apr, [facility] [place] [facility] [address] [id number] [place] [address]- 7383 Apr, [facility] [place] [facility] [address] [id number] [place] [address]- 0234 Apr, [facility] [place] [facility] [address] [id number] [place] [address]- 9988 Apr, [facility] [place] [facility] [address] [id number] [place] [address]- 5645 Apr, [facility] [place] [facility] [address] [id number] [place] [address]- 5433 Apr, [facility] [place] [facility] [address] [id number] [place] [address]- 8816 Apr, [facility] [place] [facility] [address] [id number] [place] [address]- 8568 Apr, [facility] [place] [facility] [address] [id number] [place] [address]- 3995 Apr, [facility] [place] [facility] [address] [id number] [place] [address]- 6829 Apr, [facility] [place] [facility] [address] [id number] [place] [address]- 2073 Apr, [facility] [place] [facility] [address] [id number] [place] [address]- 3567 Mar, [facility] [place] [facility] [address] [id number] [place] [address]- 3416 Mar, [facility] [place] [facility] [address] [id number] [place] [address]- 9490 Mar, [facility] [place] [facility] [address] [id number] [place] [address]- 7384 Mar, [facility] [place] [facility] [address] [id number] [place] [address]- 4864 Mar, [facility] [place] [facility] [address] [id number] [place] [address]- 5088 Mar, [facility] [place] [facility] [address] [id number] [place] [address]- 7978 15 Mar, 2014 [facility] [place] [facility] [address] [id number] [place] [address]- 4985 15 Mar, 2014 [facility] [place] [facility] [address] [id number] [place] [address]- 6416 Mar, [facility] [place] [facility] [address] [id number] [place] [address] 15 Mar, 2014 [facility] [place] [facility] [address] [id number] [place] [address] 15 Mar, 2014 [facility] [place] [facility] [address] [id number] [place] [address] 15 Mar, 2014 [facility] [place] [facility] [address] [id number] [place] [address] Mar, [facility] [place] [facility] [address] [id number] [place] [address] Mar, [facility] [place] [facility] [address] [id number] [place] [address] Mar, [facility] [place] [facility] [address] [id number] [place] [address] Mar, [facility] [place] [facility] [address] [id number] [place] [address] Mar, [facility] [place] [facility] [address] [id number] [place] [address] Mar, [facility] [place] [facility] [address] [id number] [place] [address] Feb, [facility] [place] [facility] [address] [id number] [place] [address] Feb, [facility] [place] [facility] [address] [id number] [place] [address] Feb, [facility] [place] [facility] [address] [id number] [place] [address] Feb, [facility] [place] [facility] [address] [id number] [place] [address] Feb, [facility] [place] [facility] [address] [id number] [place] [address] Feb, [facility] [place] [facility] [address] [id number] [place] [address] Feb, [facility] [place] [facility] [address] [id number] [place] [address] Feb, [facility] [place] [facility] [address] [id number] [place] [address] Jan, [facility] [place] [facility] [address] [id number] [place] [address] Jan, [facility] [place] [facility] [address] [id number] [place] [address] Jan, [facility] [place] [facility] [address] [id number] [place] [address] Jan, [facility] [place] [facility] [address] [id number] [place] [address] Jan, [facility] [place] [facility] [address] [id number] [place] [address] 31 Jan, 2014 [facility] [place] [facility] [address] [id number] [place] [address] Jan, [facility] [place] [facility] [address] [id number] [place] [address] Jan, [facility] [place] [facility] [address] [id number] [place] [address] Jan, [facility] [place] [facility] [address] [id number] [place] [address] Jan, [facility] [place] [facility] [address] [id number] [place] [address] Jan, [facility] [place] [facility] [address] [id number] [place] [address] Jan, [facility] [place] [facility] [address] [id number] [place] [address] Jan, [facility] [place] [facility] [address] [id number] [place] [address] Jan, [facility] [place] [facility] [address] [id number] [address] Jan, [facility] [place] [facility] [address] [id number], [place] [address] 16 Jan, 2014 [facility] [place] [facility] [address] [id number], [place] [address] Jan, [facility] [place] [facility] [address] [id number] [place] [address] Jan, [facility] [place] [facility] [address] [id number], [place] [address] 29 Dec, 2013 [facility] [place] [facility] [address] [id number], [place] [address] 29 Dec, 2013 [facility] [place] [facility] [address] [id number], [place] [address] 26 Dec, 2013 [facility] [place] [facility] [address] [id number] [place] [address]46 26 Dec, 2013 [facility] [place] [facility] [address] [id number] [place] [address]46 26 Dec, 2013 [facility] [place] [facility] [address] [id number] [place] [address] 2546 26 Dec, 2013 [facility] [place] [facility] [address] [id number] [place] [address]44 23 Dec, 2013 [facility] [place] [facility] [address] [id number] [place] [address] 23 Dec, 2013 [facility] [place] [facility] [address] [id number] [place] [address] 22 Dec, 2013 [facility] [place] [facility] [address] [id number] [place] [address] 22 Dec, 2013 [facility] [place] [facility] [address] [id number] [place] [address] 16 Dec, 2013 [facility] [place] [facility] [address] [id number] [place] [address] 16 Dec, 2013 [facility] [place] [facility] [address] [id number] [place] [address] 15 Dec, 2013 [facility] [place] [facility] [address] [id number] [place] [address]43 15 Dec, 2013 [facility] [place] [facility] [address] [id number] [place] [address] 09 Dec, 2013 [facility] [place] [facility] [address] [id number] [place] [address] 2543 03 Dec, 2013 [facility] [place] [facility] [address] [id number] [place] [address] 2896 Dec, 2013 [facility] [place] [facility] [address] [id number] [place] [address] 3611 29 Nov, 2013 [facility] [place] [facility] [address] [id number] [place] [address] 7286 Nov, [facility] [place] [facility] [address] [id number] [place] [address] 6578 Nov, [facility] [place] [facility] [address] [id number] [place] [address]- 5151 Nov, [facility] [place] [facility] [address] [id number] [place] [address] 2182 Nov, [facility] [place] [facility] [address] [id number] [place] [address]- 6514 Nov, [facility] [place] [facility] [address] [id number] [place] [address]- 1556 Nov, [facility] [place] [facility] [address] [id number] [place] [address]- 5200 Nov, [facility] [place] [facility] [address] [id number] [place] [address]- 4018 Nov, [facility] [place] [facility] [address] [id number] [place] [address]- 2441 Nov, [facility] [place] [facility] [address] [id number] [place] [address]- 2091 Nov, [facility] [place] [facility] [address] [id number] [place] [address]- 2557 Nov, [facility] [place] [facility] [address] [id number] [place] [address]- 8495 Nov, [facility] [place] [facility] [address] [id number] [place] [address]- 2701 Nov, [facility] [place] [facility] [address] [id number] [place] [address]- 4477 Nov, [facility] [place] [facility] [address] [id number] [place] [address] 8866 Nov, [facility] [place] [facility] [address] [id number] [place] [address]- 5140 Nov, [facility] [place] [facility] [address] [id number] [place] [address] 1908 Nov, [facility] [place] [facility] [address] [id number] [place] [address]- 8773 Nov, [facility] [place] [facility] [address] [id number] [place] [address]- 9034 Nov, [facility] [place] [facility] [address] [id number] [place] [address]- 6795 Nov, [facility] [place] [facility] [address] [id number] [place] [address]- 7643 Oct, [facility] [place] [facility] [address] [id number] [place] [address]- 3325 Oct, [facility] [place] [facility] [address] [id number] [place] [address]- 6842 Oct, [facility] [place] [facility] [address] [id number] [place] [address]- 9601 Oct, [facility] [place] [facility] [address] [id number] [place] [address]- 8967 Oct, [facility] [place] [facility] [address] [id number] [place] [address]- 2668 Oct, [facility] [place] [facility] [address] [id number] [place] [address]- 9535 Oct, [facility] [place] [facility] [address] [id number] [place] [address]- 4652 Oct, [facility] [place] [facility] [address] [id number] [place] [address]- 1989 Oct, [facility] [place] [facility] [address] [id number] [place] [address]- 7784 Oct, [facility] [place] [facility] [address] [id number] [place] [address]- 3376 Oct, [facility] [place] [facility] [address] [id number] [place] [address]- 7626 Oct, [facility] [place] [facility] [address] [id number] [place] [address]- 0465 Oct, [facility] [place] [facility] [address] [id number] [place] [address]- 7617 Oct, [facility] [place] [facility] [address] [id number] [place] [address]- 8054 Oct, [facility] [place] [facility] [address] [id number] [place] [address]- 4864 Sep, [facility] [place] [facility] [address] [id number] [place] [address]- 5495 Sep, [facility] [place] [facility] [address] [id number] [place] [address]- 4041 Sep, [facility] [place] [facility] [address] [id number] [place] [address]- 7898 Sep, [facility] [place] [facility] [address] [id number] [place] [address]- 4341 Sep, [facility] [place] [facility] [address] [id number] [place] [address]- 7229 Sep, [facility] [place] [facility] [address] [facility] [id number] [place] [address]- 3517 Sep, [facility] [place] [facility] [address] [id number] [place] [address]- 0260 Sep, [facility] [place] [facility] [address] [id number] [place] [address]- 8360 17 Sep, 2013 [facility] [place] [facility] [address] [id number] [place] [address]- 0091 Sep, [facility] [place] [facility] [address] [id number] [place] [address]- 8675 16 Sep, 2013 [facility] [place] [facility] [address] [id number] [place] [address]- 1307 Sep, [facility] [place] [facility] [address] [id number] [place] [address]- 2817 Sep, [facility] [place] [facility] [address] [id number] [place] [address]- 5349 Sep, [facility] [place] [facility] [address] [id number] [place] [address]- 4231 Sep, [facility] [place] [facility] [address] [id number] [place] [address]- 3503 Sep, [facility] [place] [facility] [address] [id number] [place] [address]- 4836 Sep, [facility] [place] [facility] [address] [id number] [place] [address]- 6490 Sep, [facility] [place] [facility] [address] [id number] [place] [address]- 8194 Sep, [facility] [place] [facility] [address] [id number] [place] [address]- 0569 Sep, [facility] [place] [facility] [address] [id number] [place] [address]- 4933 Sep, [facility] [place] [facility] [address] [id number] [place] [address]- 6627 Sep, [facility] [place] [facility] [address] [id number] [place] [address]- 8236 August, [facility] [place] [facility] [address] [id number] [place] [address]- 8430 August, [facility] [place] [facility] [address] [id number] [place] [address]- 2193 August, [facility] [place] [facility] [address] [id number] [place] [address] 1909 August, [facility] [place] [facility] [address] [id number] [place] [address]- 4210 August, [facility] [place] [facility] [address] [id number] [place] [address]- 7364 August, [facility] [place] [facility] [address] [id number] [place] [address]- 3040 August, [facility] [place] [facility] [address] [id number] [place] [address]- 3647 August, [facility] [place] [facility] [address] [id number] [place] [address]- 6308 August, [facility] [place] [facility] [address] [id number] [place] [address]- 9345 August, [facility] [place] [facility] [address] [id number] [place] [address]- 0312 August, [facility] [place] [facility] [address] [id number] [place] [address]- 1221 August, [facility] [place] [facility] [address] [id number] [place] [address]- 1971 August, [facility] [place] [facility] [address] [id number] [place] [address]- 1703 August, [facility] [place] [facility] [address] [id number] [place] [address]- 8615 August, [facility] [place] [facility] [address] [id number] [place] [address]- 3793 August, [facility] [place] [facility] [address] [id number] [place] [address]- 7815 August, [facility] [place] [facility] [address] [id number] [place] [address]- 1608 August, [facility] [place] [facility] [address] [id number] [place] [address]- 6924 Jul, [facility] [place] [facility] [address] [id number] [place] [address]- 1696 Jul, [facility] [place] [facility] [address] [id number] [place] [address]- 2940 Jul, [facility] [place] [facility] [address] [id number] [place] [address]- 3827 25 Jul, 2013 [facility] [address] [id number] [place] [address]- 1120 24 Jul, 2013 [facility] [address] [id number] [place] [address]- 0601 Jul, [facility] [address] [id number] [place] [address]- 8344 Jul, [facility] [address] [id number] [place] [address]- 4946 Jul, [facility] [address] [id number] [place] [address]- 7948 Jul, [facility] [address] [id number] [place] [address]- 6690 Jul, [facility] [address] [id number] [place] [address]- 2606 Jul, [facility] [address] [id number] [place] [address]- 3859 Jul, [facility] [address] [id number] [place] [address]- 2173 Jul, [facility] [address] [id number] [place] [address]- 3465 Jul, [facility] [place] [facility] [address] [id number] [place] [address]- 0521 Jul, [facility] [address] [id number] [place] [address]- 4484 Jul, [facility] [place] [facility] [address] [id number] [place] [address]- 0834 Jul, [facility] [place] [facility] [address] [id number] [place] [address]- 5940 16 Jul, 2013 [facility] [place] [facility] [address] [id number] [place] [address]- 0608 16 Jul, 2013 [facility] [place] [facility] [address] [id number] [place] [address]- 0224 15 Jul, 2013 [facility] [place] [facility] [address] [id number] [place] [address]- 1956 15 Jul, 2013 [facility] [place] [facility] [address] [id number] [place] [address]- 9787 14 Jul, 2013 [facility] [place] [facility] [address] [id number] [place] [address]- 9684 14 Jul, 2013 [facility] [place] [facility] [address] [id number] [place] [address]- 6864 Jul, [facility] [place] [facility] [address] [id number] [place] [address]- 7967 Jul, [facility] [place] [facility] [address] [id number] [place] [address]- 1456 Jul, [facility] [place] [facility] [address] [id number] [place] [address]- 3785 Jul, [facility] [place] [facility] [address] [id number] [place] [address]- 5087 Jul, [facility] [place] [facility] [address] [id number] [place] [address]- 4809 Jul, [facility] [place] [facility] [address] [id number] [place] [address]- 9214 17 Jun, 2013 [facility] [place] [facility] [address] [id number] [place] [address]- 8422 17 Jun, 2013 [facility] [place] [facility] [address] [id number] [place] [address]- 1685 17 Jun, 2013 [facility] [place] [facility] [address] [id number] [place] [address]- 6584 17 Jun, 2013 [facility] [place] [facility] [address] [id number] [place]16 13 Jun, 2013 [facility] [place] [facility] [address] [id number] [address]- 7230 13 Jun, 2013 [facility] [place] [facility] [address] [id number] [place] [address]- 5845 11 Jun, 2013 [facility] [place] [facility] [address] [id number] [place] [address]- 6264 Jun, [facility] [place] [facility] [address] [facility] [id number] [place] [address]- 3070 10 Jun, 2013 [facility] [place] [facility] [address] [id number] [place] [address]- 9605 10 Jun, 2013 [facility] [place] [facility] [address] [id number] [place] [address]- 9323 Jun, [facility] [place] [facility] [address] [facility] [id number] [place] [address]- 2976 Jun, [facility] [place] [facility] [address] [facility] [id number] [place] [address]- 0623 May, [facility] [place] [facility] [address] [facility] [id number] [place] [address]- 6647 May, [facility] [place] [facility] [address] [facility] [id number] [place] [address]- 6112 May, [facility] [place] [facility] [address] [facility] [id number] [place] [address]- 9669 May, [facility] [place] [facility] [address] [facility] [id number] [place] [address]- 8311 May, 2013 [facility] [place] [facility] [address] [facility] [id number] [address]- 3486 May, 2013 [facility] [place] [facility] [address] [facility] [id number] [place] [address]- 1201 May, 2013 [facility] [place] [facility] [address] [facility] [id number] [address]- 3163 May, 2013 [facility] [place] [facility] [address] [facility] [id number] [place] [address]- 1795 03 May, 2013 [facility] [place] [facility] [address] [id number] [place] [address]- 1835 May, [facility] [place] [facility] [address] [id number] [place] [address]- 6179 Apr, [facility] [place] [facility] [address] [id number] [place] [address]- 2611 Apr, [facility] [place] [facility] [address] [id number] [place] [address]- 3350 Apr, [facility] [place] [facility] [address] [id number] [place] [address]- 6959 Apr, [facility] [place] [facility] [address] [id number] [place] [address]- 9492 Apr, [facility] [place] [facility] [address] [id number] [place] [address]- 3744 Apr, [facility] [place] [facility] [address] [id number] [place] [address]- 6322 Apr, [facility] [place] [facility] [address] [id number] [place] [address]- 9136 Apr, [facility] [place] [facility] [address] [id number], [place] [address]- 9495 Apr, [facility] [place] [facility] [address] [id number] [place] [address]- 4624 Apr, [facility] [place] [facility] [address] [id number], [place] [address]- 8328 Mar, [facility] [place] [facility] [address] [id number] [place] [address]- 1902 Mar, [facility] [place] [facility] [address] [id number] [place] [address]- 2196 Mar, [facility] [place] [facility] [address] [id number] [place] [address]- 2209 Mar, [facility] [place] [facility] [address] [id number], [place] [address]- 3809 Mar, [facility] [place] [facility] [address] [id number] [place] [address]- 4645 Mar, [facility] [place] [facility] [address] [id number], [place] [address]- 8057 Feb, [facility] [place] [facility] [address] [id number] [place] [address]- 1514 Feb, [facility] [place] [facility] [address] [id number] [address]- 6972 Feb, [facility] [place] [facility] [address] [id number] [place] [address]- 5322 Jan, [facility] [place] [facility] [address] [id number] [place] [address]- 6065 Jan, [facility] [place] [facility] [address] [id number], [place] [address]- 1292 Jan, [facility] [place] [facility] [address] [id number] [address]- 6937 Jan, [facility] [place] [facility] [address] [facility] [id number][place] [address]- 6900 Jan, [facility] [place] [facility] [address] [facility] [id number] [address]- 6419 Jan, [facility] [place] [facility] [address] [id number], [place] [address]- 7784 Jan, [facility] [place] [facility] [address] [id number], [place] [address]- 6587 Jan, [facility] [place] [facility] [address] [id number], [place] [address]- 3695 Jan, [facility] [place] [facility] [address] [facility] [id number][place] 9703 Jan, [facility] [place] [facility] [address] [facility] [id number], [place] [address]- 9378 30 Dec, 2012 [facility] [place] [facility] [address] [id number] [place] [address] 2546 25 Dec, 2012 [facility] [place] [facility] [address] [id number] [place] [address] 2546 11 Dec, 2012 [facility] [place] [facility] [address] [id number] [place] [address] 2546 09 Dec, 2012 [facility] [place] [facility] [address] [id number] [place] [address] 2546 05 Dec, 2012 [facility] [place] [facility] [address] [id number] [place] [address] 2547 04 Dec, 2012 [facility] [place] [facility] [address] [id number] [place] [address]- 9832 Nov, [facility] [place] [facility] [address] [id number] [place] [address]- 3691 Nov, [facility] [place] [facility] [address] [id number] [place] [address]- 9291 Nov, [facility] [place] [facility] [address] [id number] [place] [address] 254 Nov, [facility] [place] [facility] [address] [id number] [place] [address] 2545 Nov, [facility] [place] [facility] [address] [id number] [place] [address] 2543 Nov, [facility] [place] [facility] [address] [id number] [place] [address]- 2541 Nov, [facility] [place] [facility] [address] [id number] [place] [address] 2543 Nov, [facility] [place] [facility] [address] [id number] [place] [address] 2546 Nov, [facility] [place] [facility] [address] [id number] [place] [address] 2546 Nov, [facility] [place] [facility] [address] [id number] [place] [address]- 6946 Nov, [facility] [address] [id number] [place] [address]- 1860 Nov, [facility] [place] [facility] [address] [id number] [place] [address]- 5184 Oct, [facility] [place] [facility] [address] [id number] [place] [address]- 5522 Oct, [facility] [place] [facility] [address] [id number] [place] [address]- 0253 Oct, [facility] [address] [id number] [place] [address]- 9806 Sep, [facility] [address] [id number] [place] [address]- 4002 Sep, [facility] [address] [id number] [place] [address]- 3120 Sep, [facility] [place] [facility] [address] [id number] [place] [address]- 6859 August, [facility] [address] [id number] [place] [address]- 7190 August, [facility] [place] [facility] [address] [id number] [place] [address]- 1525 August, [facility] [place] [facility] [address] [id number] [place] [address]- 8207 August, [facility] [place] [facility] [address] [id number] [place] [address]- 1662 August, [facility] [place] [facility] [address] [id number] [place] [address]- 8831 August, [facility] [place] [facility] [address] [id number] [place] [address]- 9926 Jul, [facility] [place] [facility] [address] [id number] [place] [address]- 8915 Jul, [facility] [place] [facility] [address] [id number] [place] [address]- 0682 11 Jul, 2012 [facility] [address] [id number] [place] [address]- 2906 10 Jul, 2012 [facility] [address] [id number] [place] [address]- 4665 04 Jul, 2012 [facility] [address] [id number] [place] [address]- 3941 04 Jul, 2012 [facility] [address] [id number] [place] [address] 2012 [facility] [address] [id number] [place] [address] 20 Jun, 2012 [facility] [address] [id number] [place] [address] 18 Jun, 2012 [facility] [address] [id number] [place] [address] 14 Jun, 2012 [facility] [address] [id number] [place] [address] 04 Jun, 2012 [facility] [address] [id number] [place] [address] 13 May, 2012 [facility] [address] [id number] [place] [address] 12 May, 2012 [facility] [address] [id number] [place] [address] May, [facility] [address] [id number] [place] [address] 08 May, 2012 [facility] [place] [facility] [address] [id number] [place] [address] 17 Apr, 2012 [facility] [place] [facility] [address] [id number] [place] [address] 12 Apr, 2012 [facility] [address] [id number] [place] [address] Apr, [facility] [place] [facility] [address] [id number] [place] [address] Mar, [facility] [place] [facility] [address] [id number] [place] [address] 44[address] Mar, [facility] [place] [facility] [address] [id number] [place] [address] Mar, [facility] [place] [facility] [address] [id number] [place] [address] Mar, [facility] [place] [facility] [address] [id number] [place] [address] Mar, [facility] [place] [facility] [address] [id number] [place] [address]- [address] Mar, [facility] [place] [facility] [address] [id number] [place] [address] Mar, [facility] [place] [facility] [address] [id number] [place] [address] Mar, [facility] [place] [facility] [address] [id number] [place] [address] 47[address] Feb, [facility] [place] [facility] [address] [id number], [place] [address] Feb, [facility] [place] [facility] [address] [id number], [place] [address] Feb, [facility] [place] [facility] [address] [id number], [place] [address] 39[address] Feb, [facility] [place] [facility] [address] [id number] [place] [address]- 2471 Feb, [facility] [place] [facility] [address] [id number], [place] [address] Feb, [facility] [place] [facility] [address] [id number], [place] [address] Feb, [facility] [place] [facility] [address] [id number], [place] [address] Feb, [facility] [place] [facility] [address] [id number] [place] [address] 1073 Feb, [facility] [place] [facility] [address] [facility] [id number] [address] Feb, [facility] [place] [facility] [address] [facility] [id number] [place] [address] 74[address] Feb, [facility] [place] [facility] [address] [facility] [id number], [place] [address] Feb, [facility] [place] [facility] [address] [facility] [id number] [place] [address], [place] [address]- [address] Feb, [facility] [place] [facility] [address] [facility] [id number] [place] [address]- 8570 Feb, [facility] [place] [facility] [id number], [place] [address] Feb, [facility] [place] [facility] [address] [facility] [id number], [place] [address] Feb, [facility] [place] [facility] [address] [id number], [place] [address] Feb, [facility] [place] [facility] [address] [id number], [place] [address] Feb, [facility] [place] [facility] [address] [facility] [id number], [place] [address] Jan, [facility] [place] [facility] [address] [facility] [id number], [place] [address] Jan, [facility] [place] [facility] [address] [facility] [id number], [place] [address] Jan, [facility] [place] [facility] [address] [facility] [id number][place] [address] Jan, [facility] [place] [facility] [address] [facility] [id number][place] [address] 39[address] Jan, [facility] [place] [facility] [address] [id number] [place] [address]115 19 Jan, 2012 [facility] [place] [facility] [address] [id number] [place] [address]- 3774 18 Jan, 2012 [facility] [place] [facility] [address] [id number] [place] [address] 6[address] 18 Jan, 2012 [facility] [place] [facility] [address] [id number] [place] [address]- 8684 15 Jan, 2012 [facility] [place] [facility] [address] [id number] [place] [address] 8037 15 Jan, 2012 [facility] [place] [facility] [address] [id number] [place] [address]- 0251 11 Jan, 2012 [facility] [place] [facility] [address] [id number] [place] [address]- 6567 11 Jan, 2012 [facility] [place] [facility] [address] [id number] [place] [address]- 9671 10 Jan, 2012 [facility] [place] [facility] [address] [id number] [place] [address]- 4983 09 Jan, 2012 [facility] [place] [facility] [address] [id number] [place] [address] 3998 02 Jan, 2012 [facility] [place] [facility] [address] [id number] [place] [address]- 0357 29 Dec, 2011 [facility] [place] [facility] [address] [id number] [place] [address]- 7873 28 Dec, 2011 [facility] [place] [facility] [address] [id number] [place] [address]- [address] 27 Dec, 2011 [facility] [place] [facility] [address] [id number] [place] [address]- 4524 26 Dec, 2011 [facility] [place] [facility] [address] [id number] [place] [address]- 3655 24 Nov, 2011 [facility] [place] [facility] [address] [id number] [place] [address]- [address]40 Nov, [facility] [place] [facility] [address] [id number] [place] [address]- 5096 Nov, [facility] [place] [facility] [address] [id number] [place] [address]- 2515 Nov, [facility] [place] [facility] [address] [id number] [place] [address]- 7966 Nov, [facility] [place] [facility] [address] [id number] [place] [address]- 6123 Nov, [facility] [place] [facility] [address] [id number] [place] [address]- [address] Nov, [facility] [place] [facility] [address] [id number] [place] [address]- 8079 Nov, [facility] [place] [facility] [address] [id number] [place] [address] Nov, [facility] [place] [facility] [address] [id number] [place] [address] Nov, [facility] [place] [facility] [address] [id number] [place] [address] Nov, [facility] [place] [facility] [address] [id number] [place] [address] Oct, [facility] [place] [facility] [address] [id number] [place] [address] Oct, [facility] [place] [facility] [address] [id number] [place] [address] Oct, [facility] [place] [facility] [address] [id number] [place] [address] Oct, [facility] [place] [facility] [address] [id number] [place] [address] Oct, [facility] [place] [facility] [address] [id number] [place] [address] Oct, [facility] [place] [facility] [address] [id number] [place] [address] Oct, [facility] [place] [facility] [address] [id number] [place] [address] Oct, [facility] [place] [facility] [address] [id number] [place] [address] Sep, [facility] [place] [facility] [address] [id number] [place] [address] Sep, [facility] [place] [facility] [address] [id number] [place] [address] Sep, [facility] [place] [facility] [address] [id number] [place] [address] Sep, [facility] [place] [facility] [address] [id number] [place] [address] Sep, [facility] [place] [facility] [address] [id number] [place] [address] Sep, [facility] [place] [facility] [address] [id number] [place] [address] Sep, [facility] [place] [facility] [address] [id number] [place] [address]- 2011 August, [facility] [place] [facility] [address] [id number] [place] [address] August, [facility] [place] [facility] [address] [id number] [place] [address] August, [facility] [place] [facility] [address] [id number] [place] [address] August, [facility] [place] [facility] [address] [id number] [place] [address] August, [facility] [place] [facility] [address] [id number] [place] [address] 79[address] August, [facility] [place] [facility] [address] [id number] [place] [address] August, [facility] [place] [facility] [address] [id number] [place] [address] August, [facility] [address] [id number] [place] [address] 28 Jul, 2011 [facility] [place] [facility] [address] [id number] [place] [address] 17 Jul, 2011 [facility] [address] [id number] [place] [address]64 13 Jul, 2011 [facility] [address] [id number] [place] [address] Jul, [facility] [address] [id number] [place] [address] Jul, [facility] [address] [id number] [place] [address] 28 Jun, 2011 [facility] [address] [id number] [place] [address] 2011 [facility] [address] [id number] [place] [address] Jun, [facility] [address] [id number] [place] [address] Jun, [facility] [place] [facility] [address] [id number] [place] [address] 12[address] Jun, [facility] [place] [facility] [address] [id number] [place] [address] Jun, [facility] [place] [facility] [address] [id number] [place] [address] 74[address] Jun, [facility] [place] [facility] [address] [id number] [place] [address] 07 Jun, 2011 [facility] [place] [facility] [address] [id number] [place] [address] 06 Jun, 2011 [facility] [place] [facility] [address] [id number] [place] [address] May, [facility] [address] [id number] [place] [address] 15[address] May, [facility] [place] [facility] [address] [id number] [place] [address]146 May, [facility] [place] [facility] [address] [id number] [place] [address] 2926 May, [facility] [place] [facility] [address] [id number] [place] [address] 132[address] May, [facility] [place] [facility] [address] [id number] [place] [address] 2736 May, [facility] [place] [facility] [address] [id number] [place] [address]146 May, [facility] [address] [id number] [place] [address] 7921 May, [facility] [place] [facility] [address] [id number] [place] [address] Apr, [facility] [place] [facility] [address] [id number] [place] [address] 7635 Apr, [facility] [place] [facility] [address] [facility] [id number] [place] [address] 9665 Apr, [facility] [place] [facility] [address] [id number] [place] [address] 2546 Apr, [facility] [place] [facility] [address] [id number] [place] [address] 2548 Apr, [facility] [place] [facility] [address] [id number] [place] [address] 9070 Apr, [facility] [place] [facility] [address] [facility] [id number] [place] [address] 2546 Mar, [facility] [place] [facility] [address] [id number] [place] [address] 2544 Mar, [facility] [place] [facility] [address] [id number] [place] [address]- 75[address] 26 Mar, 2011 [facility] [address] [id number] [place] [address] Mar, [facility] [place] [facility] [address] [id number] [place] [address]229 15 Mar, 2011 [facility] [place] [facility] [address] [id number] [place] [address] 8771 Mar, [facility] [address] [id number] [place] [address] Mar, [facility] [address] [id number] [place] [address] 4935 Mar, [facility] [address] [id number] [place] [address]- 3582 Mar, [facility] [address] [id number] [place] [address]- 9085 Mar, [facility] [place] [facility] [address] [id number] [place] [address] Mar, [facility] [place] [facility] [address] [id number] [place] [address]- 8858 Mar, [facility] [place] [facility] [address] [id number] [place] [address]- 8816 Mar, [facility] [place] [facility] [address] [id number] [place] [address]- 4637 Feb, [facility] [place] [facility] [address] [id number] [place] [address]- 2185 Feb, [facility] [place] [facility] [address] [id number] [place] [address]- 8442 Feb, [facility] [place] [facility] [address] [id number] [place] [address]- 4490 05 Feb, 2011 [facility] [place] [facility] [address] [id number] [place] [address]- [address]82 Feb, [facility] [place] [facility] [address] [id number] [place] [address]- 4576 Feb, [facility] [place] [facility] [address] [id number] [place] [address]- 3056 Feb, [facility] [place] [facility] [address] [id number] [place] [address]- 9936 Jan, [facility] [place] [facility] [address] [id number] [place] [address] 2545 17 Jan, 2011 [facility] [place] [facility] [address] [id number] [place] [address]- 405[address] Jan, [facility] [place] [facility] [address] [id number] [place] [address]- 6042 15 Nov, 2010 [facility] [place] [facility] [address] [id number] [place] [address]- 0077 Mar, [facility] [place] [facility] [address] [id number] [place] [address]- 8670 Mar, [facility] [place] [facility] [address] [id number] [place] [address]- 8378 Mar, [facility] [place] [facility] [address] [id number] [place] [address]- 9797 Mar, [facility] [place] [facility] [address] [id number] [place] [address]- 4031 Mar, [facility] [place] [facility] [address] [id number] [place] [address]- 3415 30 Feb, 2010 [facility] [place] [facility] [address] [id number] [place] [address] 2547 30 Feb, 2010 [facility] [place] [facility] [address] [id number] [place] [address]- 2540 24 Feb, 2010 [facility] [place] [facility] [address] [id number] [place] [address]- 2544 Feb, [facility] [place] [facility] [address] [facility] [id number] [place] [address]- [address] Feb, [facility] [address] [facility] [id number] [place] [address]- [address]60 Feb, IMMUNIZATIONS No Known Immunizations SOCIAL HISTORY Never Assessed REASON FOR VISIT Blood pressure check PLAN OF CARE VITAL SIGNS Height 60 in 2017-06-21 Weight 205.8 lbs 2017-06-21 BMI 40.19 kg/m2 2017-06-21 Blood pressure systolic 128 mmHg 2017-06-21 Blood pressure diastolic 84 mmHg 2017-06-21 MEDICATIONS Unknown Medications RESULTS No Results PROCEDURES [...] Mastectomy 02/01/2017 Hospitalization History surgeries Hospitalization History [facility] ED 10/06/2017
--- OUTSIDE RECORDS SUMMARY | 2017-12-22 04:04 | XMS REPORT ---
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 [place] [facility] [address] [id number] [place] [address]- 9105 Jun, [facility] [place] [facility] [address] [id number] [place] [address]- 4589 Jun, [facility] [place] [facility] [address] [id number] [place] [address]- 8486 Jun, [facility] [place] [facility] [address] [id number] [place] [address]- 2507 Jun, [facility] [place] [facility] [address] [id number] [place] [address]- 8678 Jun, [facility] [place] [facility] [address] [id number] [place] [address]- 6461 Jun, [facility] [place] [facility] [address] [id number] [place] [address]- 0162 23 Jun, 2014 [facility] [place] [facility] [address] [id number] [place] [address]- 4802 23 Jun, 2014 [facility] [place] [facility] [address] [id number] [place] [address]- 9152 23 Jun, 2014 [facility] [place] [facility] [address] [id number] [place] [address]- 6323 23 Jun, 2014 [facility] [place] [facility] [address] [id number] [place] [address]- 5659 23 Jun, 2014 [facility] [place] [facility] [address] [id number] [place] [address]- 2067 19 Jun, 2014 [facility] [place] [facility] [address] [id number] [place] [address]- 6187 19 Jun, 2014 [facility] [place] [facility] [address] [id number] [place] [address]- 3914 19 Jun, 2014 [facility] [place] [facility] [address] [id number] [place] [address]- 6830 19 Jun, 2014 [facility] [place] [facility] [address] [id number] [place] [address]- 8060 18 Jun, 2014 [facility] [place] [facility] [address] [id number] [place] [address]- 1264 18 Jun, 2014 [facility] [place] [facility] [address] [id number] [place] [address]- 4224 18 Jun, 2014 [facility] [place] [facility] [address] [id number] [place] [address]- 0610 18 Jun, 2014 [facility] [place] [facility] [address] [id number] [place] [address]- 4970 17 Jun, 2014 [facility] [place] [facility] [address] [id number] [place] [address]- 8397 17 Jun, 2014 [facility] [place] [facility] [address] [id number] [place] [address]- 1841 17 Jun, 2014 [facility] [place] [facility] [address] [id number] [place] [address]- 9576 17 Jun, 2014 [facility] [place] [facility] [address] [id number] [place] [address]- 3450 13 Jun, 2014 [facility] [place] [facility] [address] [id number] [place] [address]- 1276 13 Jun, 2014 [facility] [place] [facility] [address] [id number] [place] [address]- 3214 12 Jun, 2014 [facility] [place] [facility] [address] [id number] [place] [address]- 9086 12 Jun, 2014 [facility] [place] [facility] [address] [id number] [place] [address]- 0008 10 Jun, 2014 [facility] [place] [facility] [address] [id number] [place] [address]- 4353 10 Jun, 2014 [facility] [place] [facility] [address] [id number] [place] [address]- 6980 10 Jun, 2014 [facility] [place] [facility] [address] [id number] [place] [address]- 1607 10 Jun, 2014 [facility] [place] [facility] [address] [id number] [place] [address]- 8126 Jun, [facility] [place] [facility] [address] [id number] [place] [address]- 8021 Jun, [facility] [place] [facility] [address] [id number] [place] [address]- 8209 05 Jun, 2014 [facility] [place] [facility] [address] [id number] [place] [address]- 2328 Jun, [facility] [place] [facility] [address] [id number] [place] [address]- 0620 Jun, [facility] [place] [facility] [address] [id number] [place] [address]- 4356 Jun, [facility] [place] [facility] [address] [id number] [place] 2593 May, [facility] [place] [facility] [address] [id number] [place] [address]- 2455 May, 2014 [facility] [place] [facility] [address] [facility] [id number] [place] [address]- 9245 May, 2014 [facility] [place] [facility] [address] [facility] [id number] [place] [address]- 0434 May, 2014 [facility] [place] [facility] [address] [facility] [id number] [place] [address]- 5740 May, 2014 [facility] [place] [facility] [address] [facility] [id number] [place] [address]- 6520 May, 2014 [facility] [place] [facility] [address] [facility] [id number] [place] [address]- 7077 May, 2014 [facility] [place] [facility] [address] [facility] [id number] [place] [address]- 8034 May, 2014 [facility] [place] [facility] [address] [facility] [id number] [place] [address]- 0270 May, 2014 [facility] [place] [facility] [address] [facility] [id number] [place] [address]- 3094 May, 2014 [facility] [place] [facility] [address] [facility] [id number] [place] [address]- 0341 May, 2014 [facility] [place] [facility] [address] [facility] [id number] [place] [address]- 7926 May, 2014 [facility] [place] [facility] [address] [facility] [id number] [address]- 1103 May, 2014 [facility] [place] [facility] [address] [facility] [id number] [place] [address]- 6068 May, 2014 [facility] [place] [facility] [address] [facility] [id number] [place] [address]- 0067 May, 2014 [facility] [place] [facility] [address] [facility] [id number], [place] [address]- 3659 02 May, 2014 [facility] [place] [facility] [address] [id number] [place] [address]- 3472 Apr, [facility] [place] [facility] [address] [id number] [place] [address]- 8564 Apr, [facility] [place] [facility] [address] [id number] [place] [address]- 2661 Apr, [facility] [place] [facility] [address] [id number] [place] [address]- 1949 Apr, [facility] [place] [facility] [address] [id number] [place] [address]- 9018 Apr, [facility] [place] [facility] [address] [id number] [place] [address]- 2412 Apr, [facility] [place] [facility] [address] [id number] [place] [address]- 0252 Apr, [facility] [place] [facility] [address] [id number] [place] [address]- 0789 Apr, [facility] [place] [facility] [address] [id number] [place] [address]- 3509 Apr, [facility] [place] [facility] [address] [id number] [place] [address]- 5292 Apr, [facility] [place] [facility] [address] [id number] [place] [address]- 8613 Apr, [facility] [place] [facility] [address] [id number], [place] [address]- 7414 Apr, [facility] [place] [facility] [address] [id number] [place] [address]- 6604 Apr, [facility] [place] [facility] [address] [id number] [place] [address]- 7534 Apr, [facility] [place] [facility] [address] [id number] [place] [address]- 2481 Apr, [facility] [place] [facility] [address] [id number] [place] [address]- 7645 Mar, [facility] [place] [facility] [address] [id number] [place] [address]- 2296 Mar, [facility] [place] [facility] [address] [id number] [place] [address] Mar, [facility] [place] [facility] [address] [id number] [place] [address] Mar, [facility] [place] [facility] [address] [id number] [place] [address] Mar, [facility] [place] [facility] [address] [id number] [place] [address] Mar, [facility] [place] [facility] [address] [id number] [place] [address] 15 Mar, 2014 [facility] [place] [facility] [address] [id number] [place] [address] 15 Mar, 2014 [facility] [place] [facility] [address] [id number] [place] [address] 15 Mar, 2014 [facility] [place] [facility] [address] [id number] [place] [address] Mar, [facility] [place] [facility] [address] [id number] [place] [address] 15 Mar, 2014 [facility] [place] [facility] [address] [id number] [place] [address] Mar, [facility] [place] [facility] [address] [id number] [place] [address] 12 Mar, 2014 [facility] [place] [facility] [address] [id number] [place] [address] Mar, [facility] [place] [facility] [address] [id number] [place] [address] Mar, [facility] [place] [facility] [address] [id number] [place] [address] Mar, [facility] [place] [facility] [address] [id number] [place] [address] Mar, [facility] [place] [facility] [address] [id number] [place] [address] Mar, [facility] [place] [facility] [address] [id number] [place] [address] Feb, [facility] [place] [facility] [address] [id number] [place] [address] Feb, [facility] [place] [facility] [address] [id number] [place] [address]- [address] Feb, [facility] [place] [facility] [address] [id number] [place] [address] Feb, [facility] [place] [facility] [address] [id number] [place] [address] Feb, [facility] [place] [facility] [address] [id number] [place] [address] Feb, [facility] [place] [facility] [address] [id number] [place] [address] Feb, [facility] [place] [facility] [address] [id number] [place] [address] Feb, [facility] [place] [facility] [address] [id number] [place] [address] Jan, [facility] [place] [facility] [address] [id number] [place] [address] Jan, [facility] [place] [facility] [address] [id number] [place] [address]- [address] Jan, [facility] [place] [facility] [address] [id number] [place] [address] Jan, [facility] [place] [facility] [address] [id number] [place] [address] Jan, [facility] [place] [facility] [address] [id number] [place] [address] Jan, [facility] [place] [facility] [address] [id number] [place] [address] Jan, [facility] [place] [facility] [address] [id number] [place] [address] Jan, [facility] [place] [facility] [address] [id number] [place] [address] Jan, [facility] [place] [facility] [address] [id number] [place] [address] Jan, [facility] [place] [facility] [address] [id number] [place] [address] Jan, [facility] [place] [facility] [address] [id number] [place] [address] Jan, [facility] [place] [facility] [address] [id number] [place] [address] Jan, [facility] [place] [facility] [address] [id number] [place] [address]- [address] Jan, [facility] [place] [facility] [address] [id number] [place] [address]- [address] Jan, [facility] [place] [facility] [address] [id number], [place] [address] Jan, [facility] [place] [facility] [address] [id number], [place] [address] Jan, [facility] [place] [facility] [address] [id number], [place] [address] Jan, [facility] [place] [facility] [address] [id number] [place] [address] 29 Dec, 2013 [facility] [place] [facility] [address] [id number], [place] [address] 29 Dec, 2013 [facility] [place] [facility] [address] [id number], [place] [address] 26 Dec, 2013 [facility] [place] [facility] [address] [id number], [place] [address] 26 Sep, 2013 [facility] [place] [facility] [address] [id number] [place] [address] 2546 26 Sep, 2013 [facility] [place] [facility] [address] [id number] [place] [address] 7026 26 Dec, 2013 [facility] [place] [facility] [address] [id number] [place] [address]- 6976 23 Dec, 2013 [facility] [place] [facility] [address] [id number] [place] [address]- 9621 23 Dec, 2013 [facility] [place] [facility] [address] [id number] [place] [address]- 4159 22 Dec, 2013 [facility] [place] [facility] [address] [id number] [place] [address]- 2647 22 Dec, 2013 [facility] [place] [facility] [address] [id number] [place] [address] 1872 16 Dec, 2013 [facility] [place] [facility] [address] [id number] [place] [address]- 5777 16 Dec, 2013 [facility] [place] [facility] [address] [id number] [place] [address] 1890 15 Dec, 2013 [facility] [place] [facility] [address] [id number] [place] [address]- 6540 15 Dec, 2013 [facility] [place] [facility] [address] [id number] [place] [address]- 9918 09 Dec, 2013 [facility] [place] [facility] [address] [id number], [place] [address] 2544 Dec, 2013 [facility] [place] [facility] [address] [id number] [place] [address]- 8933 Dec, 2013 [facility] [place] [facility] [address] [id number] [place] [address]- 9102 Nov, [facility] [place] [facility] [address] [id number] [place] [address]- 0525 Nov, [facility] [place] [facility] [address] [id number] [place] [address]- 7380 Nov, [facility] [place] [facility] [address] [id number] [place] [address]- 1323 Nov, [facility] [place] [facility] [address] [id number] [place] [address]- 5537 Nov, [facility] [place] [facility] [address] [id number] [place] [address]- 7341 Nov, [facility] [place] [facility] [address] [id number] [place] [address]- 5428 Nov, [facility] [place] [facility] [address] [id number] [place] [address]- 7166 Nov, [facility] [place] [facility] [address] [id number] [place] [address]- 6323 Nov, [facility] [place] [facility] [address] [id number] [place] [address]- 5145 Nov, [facility] [place] [facility] [address] [id number] [place] [address]- 7248 Nov, [facility] [place] [facility] [address] [id number] [place] [address]- 6598 Nov, [facility] [place] [facility] [address] [id number] [place] [address]- 7314 Nov, [facility] [place] [facility] [address] [id number] [place] [address]- 0896 Nov, [facility] [place] [facility] [address] [id number] [place] [address]- 2500 Nov, [facility] [place] [facility] [address] [id number] [place] [address]- 1988 Nov, [facility] [place] [facility] [address] [id number] [place] [address]- 9008 Nov, [facility] [place] [facility] [address] [id number] [place] [address]- 6640 Nov, [facility] [place] [facility] [address] [id number] [place] [address]- 0708 Nov, [facility] [place] [facility] [address] [id number] [place] [address]- 2183 Nov, [facility] [place] [facility] [address] [id number] [place] [address]- 7990 Nov, [facility] [place] [facility] [address] [id number] [place] [address]- 8261 Oct, [facility] [place] [facility] [address] [id number] [place] [address]- 7823 Oct, [facility] [place] [facility] [address] [id number] [place] [address]- 2760 Oct, [facility] [place] [facility] [address] [id number] [place] [address]- 8070 Oct, [facility] [place] [facility] [address] [id number] [place] [address]- 1478 Oct, [facility] [place] [facility] [address] [id number] [place] [address]- 6543 Oct, [facility] [place] [facility] [address] [id number] [place] [address]- 9657 Oct, [facility] [place] [facility] [address] [id number] [place] [address]- 0880 Oct, [facility] [place] [facility] [address] [id number] [place] [address]- 0755 Oct, [facility] [place] [facility] [address] [id number] [place] [address]- 8986 Oct, [facility] [place] [facility] [address] [id number] [place] [address]- 1120 Oct, [facility] [place] [facility] [address] [id number] [place] [address]- 9283 Oct, [facility] [place] [facility] [address] [id number] [place] [address]- 0424 Oct, [facility] [place] [facility] [address] [id number] [place] [address]- 8088 Oct, [facility] [place] [facility] [address] [id number] [place] [address]- 1679 Oct, [facility] [place] [facility] [address] [id number] [place] [address]- 2933 Sep, [facility] [place] [facility] [address] [id number] [place] [address]- 6501 Sep, [facility] [place] [facility] [address] [id number] [place] [address]- 5638 Sep, [facility] [place] [facility] [address] [id number] [place] [address]- 9154 Sep, [facility] [place] [facility] [address] [id number] [place] [address]- 0838 Sep, [facility] [place] [facility] [address] [id number] [place] [address]- 7460 Sep, [facility] [place] [facility] [address] [id number] [place] [address]- 4162 Sep, [facility] [place] [facility] [address] [facility] [id number] [place] [address]- 2983 Sep, [facility] [place] [facility] [address] [id number] [place] [address]- 5775 Sep, [facility] [place] [facility] [address] [id number] [place] [address]- 3857 16 Sep, 2013 [facility] [place] [facility] [address] [id number] [place] [address]- 2253 Sep, [facility] [place] [facility] [address] [id number] [place] [address]- 2980 Sep, [facility] [place] [facility] [address] [id number] [place] [address]- 8621 Sep, [facility] [place] [facility] [address] [id number] [place] [address]- 1571 Sep, [facility] [place] [facility] [address] [id number] [place] [address]- 6583 Sep, [facility] [place] [facility] [address] [id number] [place] [address]- 6706 Sep, [facility] [place] [facility] [address] [id number] [place] [address]- 7869 Sep, [facility] [place] [facility] [address] [id number] [place] [address]- 9869 Sep, [facility] [place] [facility] [address] [id number] [place] [address]- 0118 Sep, [facility] [place] [facility] [address] [id number] [place] [address]- 0743 Sep, [facility] [place] [facility] [address] [id number] [place] [address]- 4455 Sep, [facility] [place] [facility] [address] [id number] [place] [address]- 7492 Sep, [facility] [place] [facility] [address] [id number] [place] [address]- 3456 August, [facility] [place] [facility] [address] [id number] [place] [address]- 3107 August, [facility] [place] [facility] [address] [id number] [place] [address]- 1945 August, [facility] [place] [facility] [address] [id number] [place] [address]- 1964 August, [facility] [place] [facility] [address] [id number] [place] [address]- 7184 August, [facility] [place] [facility] [address] [id number] [place] [address]- 4809 August, [facility] [place] [facility] [address] [id number] [place] [address]- 4757 August, [facility] [place] [facility] [address] [id number] [place] [address]- 8025 August, [facility] [place] [facility] [address] [id number] [place] [address] August, [facility] [place] [facility] [address] [id number] [place] [address]- 8314 August, [facility] [place] [facility] [address] [id number] [place] [address]- 6510 August, [facility] [place] [facility] [address] [id number] [place] [address]- 1948 August, [facility] [place] [facility] [address] [id number] [place] [address]- 1411 August, [facility] [place] [facility] [address] [id number] [place] [address]- 9341 August, [facility] [place] [facility] [address] [id number] [place] [address]- 0546 August, [facility] [place] [facility] [address] [id number] [place] [address]- 4695 August, [facility] [place] [facility] [address] [id number] [place] [address]- 1143 August, [facility] [place] [facility] [address] [id number] [place] [address]- 7024 August, [facility] [place] [facility] [address] [id number] [place] [address]- 8023 Jul, [facility] [place] [facility] [address] [id number] [place] [address]- 8707 Jul, [facility] [place] [facility] [address] [id number] [place] [address]- 6743 Jul, [facility] [place] [facility] [address] [id number] [place] [address]- 0249 Jul, [facility] [place] [facility] [address] [id number] [place] [address]- 2958 24 Jul, 2013 [facility] [address] [id number] [place] [address]- 2842 Jul, [facility] [place] [facility] [address] [id number] [place] [address]- 8314 Jul, [facility] [address] [id number] [place] [address]- 1639 Jul, [facility] [place] [facility] [address] [id number] [place] [address]- 3135 Jul, [facility] [address] [id number] [place] [address]- 0489 Jul, [facility] [address] [id number] [place] [address]- 5007 Jul, [facility] [place] [place] [facility] [address] [id number] [place] [address]- 9199 Jul, [facility] [address] [id number] [place] [address]- 2352 18 Jul, 2013 [facility] [place] [place] [facility] [address] [id number] [place] [address]- 8856 Jul, [facility] [address] [id number] [place] [address]- 9669 17 Jul, 2013 [facility] [place] [place] [facility] [address] [id number] [place] [address]- 4824 17 Jul, 2013 [facility] [place] [place] [facility] [address] [id number] [place] [address]- 6455 17 Jul, 2013 [facility] [place] [facility] [address] [id number] [place] [address]- 1283 16 Jul, 2013 [facility] [place] [facility] [address] [id number] [place] [address]- 1678 16 Jul, 2013 [facility] [place] [facility] [address] [id number] [place] [address]- 1712 15 Jul, 2013 [facility] [place] [facility] [address] [id number] [place] [address]- 6924 15 Jul, 2013 [facility] [place] [facility] [address] [id number] [place] [address]- 0609 14 Jul, 2013 [facility] [place] [facility] [address] [id number] [place] [address]- 0205 14 Jul, 2013 [facility] [place] [facility] [address] [id number] [place] [address]- 0554 Jul, [facility] [place] [facility] [address] [id number] [place] [address]- 5651 Jul, [facility] [place] [facility] [address] [id number] [place] [address]- 9579 Jul, [facility] [place] [facility] [address] [id number] [place] [address]- 9339 Jul, [facility] [place] [facility] [address] [id number] [place] [address]- 9592 Jul, [facility] [place] [facility] [address] [id number] [place] [address]- 6749 Jul, [facility] [place] [facility] [address] [id number] [place] [address]- 0590 17 Jun, 2013 [facility] [place] [facility] [address] [id number] [place] [address]- 3165 17 Jun, 2013 [facility] [place] [facility] [address] [id number] [place] [address]- 6611 17 Jun, 2013 [facility] [place] [facility] [address] [id number] [place] [address]- 3872 17 Jun, 2013 [facility] [place] [facility] [address] [id number] [place] [address]- 0079 13 Jun, 2013 [facility] [place] [facility] [address] [id number] [place] [address]- 7222 13 Jun, 2013 [facility] [place] [facility] [address] [id number], [place] [address]- 0101 11 Jun, 2013 [facility] [place] [facility] [address] [id number] [place] [address]- 4403 11 Jun, 2013 [facility] [place] [facility] [address] [facility] [id number] [place] [address]- 7285 Jun, [facility] [place] [facility] [address] [facility] [id number] [place] [address]- 7929 Jun, [facility] [place] [facility] [address] [facility] [id number] [place] [address]- 1118 Jun, [facility] [place] [facility] [address] [facility] [id number] [place] [address]- 3041 Jun, [facility] [place] [facility] [address] [facility] [id number] [place] [address]- 6407 May, [facility] [place] [facility] [address] [facility] [id number] [place] [address]- 8011 May, 2013 [facility] [place] [facility] [address] [facility] [id number] [place] [address]- 6217 May, [facility] [place] [facility] [address] [facility] [id number] [place] [address]- 6022 May, [facility] [place] [facility] [address] [facility] [id number] [place] [address]- 5762 May, [facility] [place] [facility] [address] [facility] [id number] [place] [address]- 2182 May, 2013 [facility] [place] [facility] [address] [facility] [id number] [place] [address]- 6824 May, 2013 [facility] [place] [facility] [address] [facility] [id number] [place] [address]- 5507 May, 2013 [facility] [place] [facility] [address] [facility] [id number] [place] [address]- 8399 May, 2013 [facility] [place] [facility] [address] [facility] [id number] [place] [address]- 0804 May, [facility] [address] [id number] [place] [address]- 6672 Apr, [facility] [place] [facility] [address] [id number] [place] [address]- 8657 Apr, [facility] [place] [facility] [address] [id number] [place] [address]- 4990 Apr, [facility] [place] [facility] [address] [id number] [place] [address]- 4436 Apr, [facility] [place] [facility] [address] [id number] [place] [address]- 0848 Apr, [facility] [place] [facility] [address] [id number] [place] [address]- 5746 Apr, [facility] [place] [facility] [address] [id number] [place] [address]- 4995 Apr, [facility] [place] [facility] [address] [id number] [place] [address]- 7973 Apr, [facility] [place] [facility] [address] [id number] [place] [address]- 2339 Apr, [facility] [place] [facility] [address] [id number] [place] [address]- 3468 Apr, [facility] [place] [facility] [address] [id number] [place] [address]- 9137 Mar, [facility] [place] [facility] [address] [id number], [place] [address]- 2535 Mar, [facility] [place] [facility] [address] [id number] [place] [address]- 6934 Mar, [facility] [place] [facility] [address] [id number] [place] [address]- 1584 Mar, [facility] [place] [facility] [address] [id number] [place] [address]- 4172 Mar, [facility] [place] [facility] [address] [id number] [place] [address]- 5312 Mar, [facility] [place] [facility] [address] [id number] [place] [address]- 7136 Feb, [facility] [place] [facility] [address] [id number] [place] [address]- 4004 Feb, [facility] [place] [facility] [address] [id number] [place] [address]- 9166 Feb, [facility] [place] [facility] [address] [id number] [place] [address]- 0919 30 Jan, 2013 [facility] [place] [facility] [address] [id number] [place] [address]35 Jan, [facility] [place] [facility] [address] [id number] [place] [address]- 8933 Jan, [facility] [place] [facility] [address] [id number] [place] [address]- 5472 Jan, [facility] [place] [facility] [address] [id number] [place] [address]- 0823 Jan, [facility] [place] [facility] [address] [id number] [place] [address]- 4503 Jan, [facility] [place] [facility] [address] [id number] [place] [address]- 3276 Jan, [facility] [place] [facility] [address] [id number] [place] [address]- 3157 Jan, [facility] [place] [facility] [address] [id number], [place] [address]- 8911 Jan, [facility] [place] [facility] [address] [id number] [place] [address]- 7368 Jan, [facility] [place] [facility] [address] [id number] [place] [address]276 30 Dec, 2012 [facility] [place] [facility] [address] [id number] [place] [address]- 7532 25 Dec, 2012 [facility] [place] [facility] [address] [id number] [place] [address]- 2542 11 Dec, 2012 [facility] [place] [facility] [address] [id number] [place] [address]- 7696 09 Dec, 2012 [facility] [place] [facility] [address] [id number] [place] [address] 2546 05 Dec, 2012 [facility] [place] [facility] [address] [id number] [place] [address] 2544 Dec, [facility] [place] [facility] [address] [id number] [place] [address]- 8393 Nov, [facility] [place] [facility] [address] [id number] [place] [address]- 5174 Nov, [facility] [place] [facility] [address] [id number] [place] [address]- 1851 Nov, [facility] [place] [facility] [address] [id number] [place] [address]- 5640 Nov, [facility] [place] [facility] [address] [id number] [place] [address]- 2673 Nov, [facility] [place] [facility] [address] [id number] [place] [address]- 9025 Nov, [facility] [place] [facility] [address] [id number] [place] [address]- 2177 Nov, [facility] [place] [facility] [address] [id number] [place] [address]- 2548 Nov, [facility] [place] [facility] [address] [id number] [place] [address]- 2542 Nov, [facility] [place] [facility] [address] [id number] [place] [address]- 2540 Nov, [facility] [place] [facility] [address] [id number] [place] [address]- 2542 Nov, [facility] [place] [facility] [address] [id number] [place] [address]- 4102 Nov, [facility] [address] [id number] [place] [address]- 3368 Oct, [facility] [place] [facility] [address] [id number] [place] [address]- 5086 Oct, [facility] [place] [facility] [address] [id number] [place] [address]- 4340 Oct, [facility] [place] [facility] [address] [id number] [place] [address]- 9559 Sep, [facility] [place] [facility] [address] [id number] [place] [address]- 0107 Sep, [facility] [place] [facility] [address] [id number] [place] [address] Sep, [facility] [place] [facility] [address] [id number] [place] [address] August, [facility] [place] [facility] [address] [id number] [place] [address] August, [facility] [address] [id number] [place] [address] August, [facility] [place] [facility] [address] [id number] [place] [address] August, [facility] [place] [facility] [address] [id number] [place] [address] August, [facility] [place] [facility] [address] [id number] [place] [address] August, [facility] [place] [facility] [address] [id number] [place] [address] Jul, [facility] [place] [facility] [address] [id number] [place] [address] Jul, [facility] [place] [facility] [address] [id number] [place] [address] Jul, [facility] [place] [facility] [address] [id number] [place] [address] 10 Jul, 2012 [facility] [address] [id number] [place] [address] 04 Jul, 2012 [facility] [address] [id number] [place] [address] 04 Jul, 2012 [facility] [address] [id number] [place] [address] 2012 [facility] [address] [id number] [place] [address] 20 Jun, 2012 [facility] [address] [id number] [place] [address] 18 Jun, 2012 [facility] [address] [id number] [place] [address] 14 Jun, 2012 [facility] [address] [id number] [place] [address] Jun, [facility] [address] [id number] [place] [address] May, [facility] [address] [id number] [place] [address] May, [facility] [address] [id number] [place] [address] May, [facility] [address] [id number] [place] [address] May, [facility] [address] [id number] [place] [address] Apr, [facility] [address] [id number] [place] [address] Apr, [facility] [address] [id number] [place] [address] Apr, [facility] [address] [id number] [place] [address] Mar, [facility] [place] [facility] [address] [id number] [place] [address] Mar, [facility] [place] [facility] [address] [id number] [place] [address] Mar, [facility] [place] [facility] [address] [id number] [place] [address] Mar, [facility] [place] [facility] [address] [id number] [place] [address] Mar, [facility] [place] [facility] [address] [id number] [place] [address] Mar, [facility] [place] [facility] [address] [id number] [place] [address] Mar, [facility] [place] [facility] [address] [id number] [place] [address] Mar, [facility] [place] [facility] [address] [id number] [place] [address] Feb, [facility] [place] [facility] [address] [id number] [place] [address] Feb, [facility] [place] [facility] [address] [id number] [place] [address] Feb, [facility] [place] [facility] [address] [id number] [place] [address] Feb, [facility] [place] [facility] [address] [id number], [place] [address] Feb, [facility] [place] [facility] [address] [id number] [place] [address] Feb, [facility] [place] [facility] [address] [id number] [place] [address] Feb, [facility] [place] [facility] [address] [id number] [place] [address]- [address] Feb, [facility] [place] [facility] [address] [id number] [place] [address] Feb, [facility] [place] [facility] [address] [id number] [place] [address] Feb, [facility] [place] [facility] [address] [id number] [place] [address] Feb, [facility] [place] [facility] [address] [facility] [id number] [place] [address]- [address] Feb, [facility] [place] [facility] [address] [id number] [place] [address]- [address] Feb, [facility] [place] [facility] [address] [id number] [place] [address]- [address] Feb, [facility] [place] [facility] [address] [id number] [place] [address]- [address] Feb, [facility] [place] [facility] [address] [facility] [id number] [place] [address]- [address] Feb, [facility] [place] [facility] [address] [id number] [place] [address]- [address] Feb, [facility] [place] [facility] [address] [id number] [place] [address]- [address] Feb, [facility] [place] [facility] [address] [facility] [id number] [place] [address]- [address] Jan, [facility] [place] [facility] [address] [id number] [place] [address] Jan, [facility] [place] [facility] [address] [id number], [place] [address] Jan, [facility] [place] [facility] [address] [id number] [place] [address] Jan, [facility] [place] [facility] [address] [facility] [id number] [place] [address] Jan, [facility] [place] [facility] [address] [facility] [id number], [place] [address] Jan, [facility] [place] [facility] [address] [id number] [place] [address] 18 Jan, 2012 [facility] [place] [facility] [address] [id number] [place] [address]- [address] 18 Jan, 2012 [facility] [place] [facility] [address] [id number] [place] [address]- [address] 15 Jan, 2012 [facility] [place] [facility] [address] [id number] [place] [address]- [address]93 15 Jan, 2012 [facility] [place] [facility] [address] [id number] [place] [address] Jan, [facility] [place] [facility] [address] [id number] [place] [address] 11 Jan, 2012 [facility] [place] [facility] [address] [id number] [place] [address] 10 Jan, 2012 [facility] [place] [facility] [address] [id number] [place] [address] 8567 09 Jan, 2012 [facility] [place] [facility] [address] [id number] [place] [address]24 02 Jan, 2012 [facility] [place] [facility] [address] [id number] [place] [address] 29 Dec, 2011 [facility] [place] [facility] [address] [id number] [place] [address] 4969 28 Dec, 2011 [facility] [place] [facility] [address] [id number] [place] [address] 27 Dec, 2011 [facility] [place] [facility] [address] [id number] [place] [address] 8[address] 26 Dec, 2011 [facility] [place] [facility] [address] [id number] [place] [address] 1656 24 Nov, 2011 [facility] [place] [facility] [address] [id number] [place] [address]37 23 Nov, 2011 [facility] [place] [facility] [address] [id number] [place] [address] 1185 Nov, [facility] [place] [facility] [address] [id number] [place] [address] Nov, [facility] [place] [facility] [address] [id number] [place] [address] 22[address] Nov, [facility] [place] [facility] [address] [id number] [place] [address] 3247 Nov, [facility] [place] [facility] [address] [id number] [place] [address] 0368 Nov, [facility] [place] [facility] [address] [id number] [place] [address] 8729 Nov, [facility] [place] [facility] [address] [id number] [place] [address]49 Nov, [facility] [place] [facility] [address] [id number] [place] [address]- 8455 Nov, [facility] [place] [facility] [address] [id number] [place] [address] 8946 Nov, [facility] [place] [facility] [address] [id number] [place] [address] 1010 Oct, [facility] [place] [facility] [address] [id number] [place] [address] Oct, [facility] [place] [facility] [address] [id number] [place] [address] Oct, [facility] [place] [facility] [address] [id number] [place] [address]- 264[address] Oct, [facility] [place] [facility] [address] [id number] [place] [address] 260[address] Oct, [facility] [place] [facility] [address] [id number] [place] [address] 0419 Oct, [facility] [place] [facility] [address] [id number] [place] [address] 9988 Oct, [facility] [place] [facility] [address] [id number] [place] [address] 9246 Oct, [facility] [address] [id number] [place] [address] 76[address] Sep, [facility] [address] [id number] [place] [address] 39[address] Sep, [facility] [address] [id number] [place] [address] 8280 Sep, [facility] [address] [id number] [place] [address] 9326 Sep, [facility] [address] [id number] [place] [address] 2478 Sep, [facility] [address] [id number] [place] [address] 0819 Sep, [facility] [address] [id number] [place] [address] 3966 Sep, [facility] [address] [id number] [place] [address] 0820 August, [facility] [address] [id number] [place] [address] August, [facility] [address] [id number] [place] [address] 7566 August, [facility] [address] [id number] [place] [address] 8462 August, [facility] [address] [id number] [place] [address]157 August, [facility] [place] [facility] [address] [id number] [place] [address] August, [facility] [address] [id number] [place] [address] 6313 August, [facility] [address] [id number] [place] [address] 2159 August, [facility] [place] [facility] [address] [id number] [place] [address] 7062 28 Jul, 2011 [facility] [place] [facility] [address] [id number] [place] [address]- 2526 17 Jul, 2011 [facility] [place] [facility] [address] [id number] [place] [address]- 4306 13 Jul, 2011 [facility] [place] [facility] [address] [id number] [place] [address] 2546 Jul, [facility] [place] [facility] [address] [id number] [place] [address]- 1784 05 Jul, 2011 [facility] [place] [facility] [address] [id number] [place] [address]- 2879 28 Jun, 2011 [facility] [place] [facility] [address] [id number] [place] [address]- 6[address] Jun, [facility] [place] [facility] [address] [id number] [place] [address] 7207 Jun, [facility] [place] [facility] [address] [id number] [place] [address]- 8106 Jun, [facility] [place] [facility] [address] [id number] [place] [address]- 3194 Jun, [facility] [place] [facility] [address] [id number] [place] [address] 0963 Jun, [facility] [place] [facility] [address] [id number] [place] [address]- 7618 Jun, [facility] [place] [facility] [address] [id number] [place] [address]- 0160 Jun, [facility] [place] [facility] [address] [id number] [place] [address]- 0216 06 Jun, 2011 [facility] [place] [facility] [address] [id number] [place] [address] 8653 27 May, 2011 [facility] [place] [facility] [address] [id number] [place] [address] 3539 May, [facility] [address] [id number] [place] [address] 2796 May, [facility] [address] [id number] [place] [address]- 9396 May, [facility] [address] [id number] [place] [address]- 8396 May, [facility] [address] [id number] [place] [address]- 3786 May, [facility] [address] [id number] [place] [address]- 5876 May, [facility] [address] [id number] [place] [address]- 5846 May, [facility] [address] [id number] [place] [address] 6978 Apr, [facility] [address] [id number] [place] [address]- 6971 Apr, [facility] [address] [id number] [place] [address]- 9474 Apr, [facility] [address] [facility] [id number] [place] [address]- 6998 Apr, [facility] [address] [id number] [place] [address]- 0226 Apr, [facility] [address] [id number] [place] [address]- 2650 Apr, [facility] [place] [facility] [address] [id number] [place] [address]- 2529 Mar, [facility] [place] [facility] [address] [id number] [place] [address] 2546 Mar, [facility] [address] [id number] [place] [address]- 3326 Mar, [facility] [place] [facility] [address] [id number] [place] [address]- 3040 19 Mar, 2011 [facility] [place] [facility] [address] [id number] [place] [address] 15 Mar, 2011 [facility] [place] [facility] [address] [id number] [place] [address]- 7502 Mar, [facility] [place] [facility] [address] [id number] [place] [address]- 6489 Mar, [facility] [place] [facility] [address] [id number] [place] [address] Mar, [facility] [place] [facility] [address] [id number] [place] [address]- 3706 Mar, [facility] [place] [facility] [address] [id number] [place] [address] Mar, [facility] [place] [facility] [address] [id number] [place] [address]- 5700 Mar, [facility] [place] [facility] [address] [id number] [place] [address]- 9309 Mar, [facility] [place] [facility] [address] [id number] [place] [address]- 8120 Mar, [facility] [place] [facility] [address] [id number] [place] [address]- 5722 Feb, [facility] [place] [facility] [address] [id number], [place] [address]- 5138 Feb, [facility] [place] [facility] [address] [id number] [place] [address]- 7201 Feb, [facility] [place] [facility] [address] [id number] [place] [address]- 3586 Feb, [facility] [place] [facility] [address] [id number], [place] [address]- 0912 Feb, [facility] [place] [facility] [address] [id number], [place] [address]- 3193 Feb, [facility] [place] [facility] [address] [id number] [place] [address]- 2812 Feb, [facility] [place] [facility] [address] [id number] [place] [address]- 4546 Jan, [facility] [place] [facility] [address] [id number] [place] [address]- 5656 17 Jan, 2011 [facility] [place] [facility] [address] [id number] [place] [address]- 1718 Jan, [facility] [place] [facility] [address] [id number] [place] [address]- 5670 15 Nov, 2010 [facility] [place] [facility] [address] [id number] [place] [address]- 0308 Mar, [facility] [place] [facility] [address] [id number] [place] [address]- 3148 Mar, [facility] [place] [facility] [address] [id number] [place] [address]- 2999 Mar, [facility] [place] [facility] [address] [id number] [place] [address]- 1188 Mar, [facility] [place] [facility] [address] [id number] [place] [address]- 6584 Mar, [facility] [place] [facility] [address] [id number], [place] [address]- 0961 Feb, [facility] [place] [facility] [address] [id number] [place] [address]- 2548 30 Feb, 2010 [facility] [place] [facility] [address] [id number] [place] [address] 2541 Feb, [facility] [place] [facility] [address] [id number] [place] [address]- 2547 Feb, [facility] [place] [facility] [address] [id number] [place] [address]- 0892 Feb, [facility] [place] [facility] [address] [facility] [id number] [place] [id number] 15 Feb, 2010 IMMUNIZATIONS No Known Immunizations SOCIAL HISTORY Never Assessed REASON FOR VISIT urine culture PLAN OF CARE VITAL SIGNS MEDICATIONS Unknown [...] Mastectomy 02/01/2017 Hospitalization History surgeries Hospitalization History [facility] ED 10/06/2017
--- OUTSIDE RECORDS SUMMARY | 2017-12-22 04:05 | XMS REPORT ---
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 August, [facility] [place] [facility] [address] [id number] [place] [address]- 8100 August, [facility] [place] [facility] [address] [id number] [place] [address]- 7736 August, [facility] [place] [facility] [address] [id number] [place] [address]- 7087 Jul, [facility] [place] [facility] [address] [id number] [place] [address]- 0217 Jul, [facility] [place] [facility] [address] [id number] [place] [address]- 3754 Jun, [facility] [place] [facility] [address] [id number] [place] [address]- 8881 Jun, [facility] [place] [facility] [address] [id number] [place] [address]- 8541 Jun, [facility] [place] [facility] [address] [id number] [place] [address]- 0728 Jun, [facility] [place] [facility] [address] [id number] [place] [address]- 1551 Jun, [facility] [place] [facility] [address] [id number] [place] [address]- 2248 Jun, [facility] [place] [facility] [address] [id number] [place] [address]- 7483 Jun, [facility] [place] [facility] [address] [id number] [place] [address]- 5789 23 Jun, 2014 [facility] [place] [facility] [address] [id number] [place] [address]- 3671 23 Jun, 2014 [facility] [place] [facility] [address] [id number] [place] [address]- 2356 23 Jun, 2014 [facility] [place] [facility] [address] [id number] [place] [address]- 5121 23 Jun, 2014 [facility] [place] [facility] [address] [id number] [place] [address]- 8115 23 Jun, 2014 [facility] [place] [facility] [address] [id number] [place] [address]- 3558 19 Jun, 2014 [facility] [place] [facility] [address] [id number] [place] [address]- 3181 19 Jun, 2014 [facility] [place] [facility] [address] [id number] [place] [address]- 2571 19 Jun, 2014 [facility] [place] [facility] [address] [id number] [place] [address]- 4035 19 Jun, 2014 [facility] [place] [facility] [address] [id number] [place] [address]- 2435 18 Jun, 2014 [facility] [place] [facility] [address] [id number] [place] [address]- 7002 18 Jun, 2014 [facility] [place] [facility] [address] [id number] [place] [address]- 9006 18 Jun, 2014 [facility] [place] [facility] [address] [id number], [place] [address]- 7322 18 Jun, 2014 [facility] [place] [facility] [address] [id number] [place] [address]- 0344 17 Jun, 2014 [facility] [place] [facility] [address] [id number] [place] [address]- 1674 17 Jun, 2014 [facility] [place] [facility] [address] [id number] [place] [address]- 9535 17 Jun, 2014 [facility] [place] [facility] [address] [id number] [place] [address]- 0511 17 Jun, 2014 [facility] [place] [facility] [address] [id number] [place] [address]- 2051 13 Jun, 2014 [facility] [place] [facility] [address] [id number] [place] [address]- 8309 13 Jun, 2014 [facility] [place] [facility] [address] [id number] [place] [address]- 7752 12 Jun, 2014 [facility] [place] [facility] [address] [id number] [place] [address]- 1680 12 Jun, 2014 [facility] [place] [facility] [address] [id number] [place] [address]- 4289 10 Jun, 2014 [facility] [place] [facility] [address] [id number] [place] [address]- 3734 10 Jun, 2014 [facility] [place] [facility] [address] [id number] [place] [address]- 5021 10 Jun, 2014 [facility] [place] [facility] [address] [id number] [place] [address]- 2528 10 Jun, 2014 [facility] [place] [facility] [address] [id number] [place] [address]- 2190 06 Jun, 2014 [facility] [place] [facility] [address] [id number] [place] [address]- 5833 06 Jun, 2014 [facility] [place] [facility] [address] [id number] [place] [address]- 0253 05 Jun, 2014 [facility] [place] [facility] [address] [id number] [place] [address]- 2593 Jun, [facility] [place] [facility] [address] [id number] [place] [address]- 4892 Jun, [facility] [place] [facility] [address] [id number] [place] [address]- 3709 Jun, [facility] [place] [facility] [address] [id number] [place] [address]- 2917 May, [facility] [place] [facility] [address] [id number] [place] [address]- 9803 May, 2014 [facility] [place] [facility] [address] [facility] [id number] [place] [address]- 2596 May, 2014 [facility] [place] [facility] [address] [facility] [id number] [place] [address]- 2601 May, 2014 [facility] [place] [facility] [address] [facility] [id number] [place] [address]- 0565 May, 2014 [facility] [place] [facility] [address] [facility] [id number] [place] [address]- 5356 May, 2014 [facility] [place] [facility] [address] [facility] [id number] [place] [address]- 8761 May, 2014 [facility] [place] [facility] [address] [facility] [id number] [place] [address]- 1884 May, 2014 [facility] [place] [facility] [address] [facility] [id number] [place] [address]- 0946 May, 2014 [facility] [place] [facility] [address] [facility] [id number] [place] [address]- 0434 May, 2014 [facility] [place] [facility] [address] [facility] [id number] [place] [address]- 0263 May, 2014 [facility] [place] [facility] [address] [facility] [id number] [place] [address]- 5973 May, 2014 [facility] [place] [facility] [address] [facility] [id number], [place] [address]- 3277 May, 2014 [facility] [place] [facility] [address] [facility] [id number] [place] [address]- 3582 May, 2014 [facility] [place] [facility] [address] [facility] [id number] [place] [address]- 3128 May, 2014 [facility] [place] [facility] [address] [facility] [id number] [place] [address]- 9208 May2014 [facility] [place] [facility] [address] [id number] [place] [address]- 3973 Apr, [facility] [place] [facility] [address] [id number] [place] [address]- 3046 Apr, [facility] [place] [facility] [address] [id number] [place] [address]- 1315 Apr, [facility] [place] [facility] [address] [id number] [place] [address]- 0620 Apr, [facility] [place] [facility] [address] [id number] [place] [address]- 3585 Apr, [facility] [place] [facility] [address] [id number] [place] [address]- 1822 Apr, [facility] [place] [facility] [address] [id number] [place] [address]- 1391 Apr, [facility] [place] [facility] [address] [id number] [place] [address]- 7788 Apr, [facility] [place] [facility] [address] [id number] [place] [address]- 4926 Apr, [facility] [place] [facility] [address] [id number] [place] [address]- 6471 Apr, [facility] [place] [facility] [address] [id number] [place] [address]- 6009 Apr, [facility] [place] [facility] [address] [id number] [place] [address]- 9690 Apr, [facility] [place] [facility] [address] [id number] [place] [address]- 8929 Apr, [facility] [place] [facility] [address] [id number] [place] [address]- 8636 Apr, [facility] [place] [facility] [address] [id number] [place] [address]- 8665 Apr, [facility] [place] [facility] [address] [id number] [place] [address]- 3844 Mar, [facility] [place] [facility] [address] [id number] [place] [address]- 6592 29 Mar, 2014 [facility] [place] [facility] [address] [id number] [place] [address]- 0656 Mar, [facility] [place] [facility] [address] [id number] [place] [address]- 8006 Mar, [facility] [place] [facility] [address] [id number] [place] [address]- 8292 Mar, [facility] [place] [facility] [address] [id number] [place] [address]- 9430 Mar, [facility] [place] [facility] [address] [id number] [place] [address]- 7346 Mar, [facility] [place] [facility] [address] [id number] [place] [address]- 2758 15 Mar, 2014 [facility] [place] [facility] [address] [id number] [place] [address]- 4921 15 Mar, 2014 [facility] [place] [facility] [address] [id number] [place] [address]- 7947 Mar, [facility] [place] [facility] [address] [id number] [place] [address]- 8875 15 Mar, 2014 [facility] [place] [facility] [address] [id number] [place] [address]- 0874 15 Mar, 2014 [facility] [place] [facility] [address] [id number] [place] [address] 12 Mar, 2014 [facility] [place] [facility] [address] [id number] [place] [address] Mar, [facility] [place] [facility] [address] [id number] [place] [address] Mar, [facility] [place] [facility] [address] [id number] [place] [address] Mar, [facility] [place] [facility] [address] [id number] [place] [address] Mar, [facility] [place] [facility] [address] [id number] [place] [address] Mar, [facility] [place] [facility] [address] [id number] [place] [address] Feb, [facility] [place] [facility] [address] [id number] [place] [address] Feb, [facility] [place] [facility] [address] [id number] [place] [address] Feb, [facility] [place] [facility] [address] [id number] [place] [address] Feb, [facility] [place] [facility] [address] [id number] [place] [address] Feb, [facility] [place] [facility] [address] [id number] [place] [address] 94[address] Feb, [facility] [place] [facility] [address] [id number] [place] [address] Feb, [facility] [place] [facility] [address] [id number] [place] [address] Feb, [facility] [place] [facility] [address] [id number] [place] [address] Jan, [facility] [place] [facility] [address] [id number] [place] [address] Jan, [facility] [place] [facility] [address] [id number] [place] [address] 60[address] Jan, [facility] [place] [facility] [address] [id number] [place] [address] Jan, [facility] [place] [facility] [address] [id number] [place] [address]- [address] Jan, [facility] [place] [facility] [address] [id number] [place] [address] Jan, [facility] [place] [facility] [address] [id number] [place] [address] Jan, [facility] [place] [facility] [address] [id number] [place] [address] Jan, [facility] [place] [facility] [address] [id number] [place] [address] Jan, [facility] [place] [facility] [address] [id number] [place] [address] 11[address] Jan, [facility] [place] [facility] [address] [id number] [place] [address] Jan, [facility] [place] [facility] [address] [id number] [place] [address] 1765 Jan, [facility] [place] [facility] [address] [id number] [place] [address] 119[address] Jan, [facility] [place] [facility] [address] [id number] [place] [address] Jan, [facility] [place] [facility] [address] [id number] [place] [address] Jan, [facility] [place] [facility] [address] [id number], [place] [address] 16 Jan, 2014 [facility] [place] [facility] [address] [id number], [place] [address] Jan, [facility] [place] [facility] [address] [id number], [place] [address] Jan, [facility] [place] [facility] [address] [id number] [place] [address] 29 Dec, 2013 [facility] [place] [facility] [address] [id number] [place] [address] 29 Dec, 2013 [facility] [place] [facility] [address] [id number], [place] [address] 26 Dec, 2013 [facility] [place] [facility] [address] [id number], [place] [address]- [address] 26 Dec, 2013 [facility] [place] [facility] [address] [id number] [place] [address] 2546 26 Dec, 2013 [facility] [place] [facility] [address] [id number] [place] [address] 2546 26 Dec, 2013 [facility] [place] [facility] [address] [id number] [place] [address]- [address] 23 Dec, 2013 [facility] [place] [facility] [address] [id number] [place] [address] 254 23 Dec, 2013 [facility] [place] [facility] [address] [id number] [place] [address]- [address] 22 Dec, 2013 [facility] [place] [facility] [address] [id number] [place] [address]- [address] 22 Dec, 2013 [facility] [place] [facility] [address] [id number] [place] [address]- [address] 16 Dec, 2013 [facility] [place] [facility] [address] [id number] [place] [address]- [address] 16 Dec, 2013 [facility] [place] [facility] [address] [id number] [place] [address]- 9[address] 15 Dec, 2013 [facility] [place] [facility] [address] [id number] [place] [address]- 1273 15 Dec, 2013 [facility] [place] [facility] [address] [id number] [place] [address]- [address]40 Dec, 2013 [facility] [place] [facility] [address] [id number] [place] [address]- 2547 Dec, 2013 [facility] [place] [facility] [address] [id number] [place] [address] 2547 Dec, [facility] [place] [facility] [address] [id number] [place] [address]- [address]68 Nov, [facility] [place] [facility] [address] [id number] [place] [address]- [address]77 Nov, [facility] [place] [facility] [address] [id number] [place] [address] 58[address] Nov, [facility] [place] [facility] [address] [id number] [place] [address] Nov, [facility] [place] [facility] [address] [id number] [place] [address]- [address] Nov, [facility] [place] [facility] [address] [id number] [place] [address]- 1553 Nov, [facility] [place] [facility] [address] [id number] [place] [address] 8036 Nov, [facility] [place] [facility] [address] [id number] [place] [address]- 279[address] Nov, [facility] [place] [facility] [address] [id number] [place] [address] 1365 Nov, [facility] [place] [facility] [address] [id number] [place] [address]- [address] Nov, [facility] [place] [facility] [address] [id number] [place] [address] 240[address] Nov, [facility] [place] [facility] [address] [id number] [place] [address]- [address] Nov, [facility] [place] [facility] [address] [id number] [place] [address] Nov, [facility] [place] [facility] [address] [id number] [place] [address] 6[address] Nov, [facility] [place] [facility] [address] [id number] [place] [address] 5099 Nov, [facility] [place] [facility] [address] [id number] [place] [address] 3156 Nov, [facility] [place] [facility] [address] [id number] [place] [address]- 2185 Nov, [facility] [place] [facility] [address] [id number] [place] [address]- 5388 Nov, [facility] [place] [facility] [address] [id number] [place] [address] 5203 Nov, [facility] [place] [facility] [address] [id number] [place] [address]- 6635 Nov, [facility] [place] [facility] [address] [id number] [place] [address] 9300 Nov, [facility] [place] [facility] [address] [id number] [place] [address]- 4749 Oct, [facility] [place] [facility] [address] [id number] [place] [address] 6861 Oct, [facility] [place] [facility] [address] [id number] [place] [address]- 5650 Oct, [facility] [place] [facility] [address] [id number] [place] [address]- 5068 Oct, [facility] [place] [facility] [address] [id number] [place] [address]- 9954 Oct, [facility] [place] [facility] [address] [id number] [place] [address]- 9328 Oct, [facility] [place] [facility] [address] [id number] [place] [address]- 4484 Oct, [facility] [place] [facility] [address] [id number] [place] [address]- 8397 Oct, [facility] [place] [facility] [address] [id number] [place] [address]- 8909 Oct, [facility] [place] [facility] [address] [id number] [place] [address]- 3147 Oct, [facility] [place] [facility] [address] [id number] [place] [address]- 6984 Oct, [facility] [place] [facility] [address] [id number] [place] [address]- 7307 Oct, [facility] [place] [facility] [address] [id number] [place] [address]- 3912 Oct, [facility] [place] [facility] [address] [id number] [place] [address]- 7588 Oct, [facility] [place] [facility] [address] [id number] [place] [address]- 8057 Oct, [facility] [place] [facility] [address] [id number] [place] [address]- 1841 Sep, [facility] [place] [facility] [address] [id number] [place] [address]- 0447 Sep, [facility] [place] [facility] [address] [id number] [place] [address]- 8421 Sep, [facility] [place] [facility] [address] [id number] [place] [address]- 0831 Sep, [facility] [place] [facility] [address] [id number] [place] [address]- 5797 Sep, [facility] [place] [facility] [address] [id number] [place] [address]- 1566 Sep, [facility] [place] [facility] [address] [id number] [place] [address]- 1628 Sep, [facility] [place] [facility] [address] [facility] [id number] [place] [address]- 3869 Sep, [facility] [place] [facility] [address] [id number] [place] [address]- 6316 17 Sep, 2013 [facility] [place] [facility] [address] [id number] [place] [address]- 8912 16 Sep, 2013 [facility] [place] [facility] [address] [id number] [place] [address]- 5955 Sep, [facility] [place] [facility] [address] [id number] [place] [address]- 6793 Sep, [facility] [place] [facility] [address] [id number] [place] [address]- 3521 Sep, [facility] [place] [facility] [address] [id number] [place] [address]- 3282 Sep, [facility] [place] [facility] [address] [id number] [place] [address]- 0149 Sep, [facility] [place] [facility] [address] [id number] [place] [address]- 3833 Sep, [facility] [place] [facility] [address] [id number] [place] [address]- 2987 Sep, [facility] [place] [facility] [address] [id number] [place] [address]- 6060 Sep, [facility] [place] [facility] [address] [id number] [place] [address]- 5954 Sep, [facility] [place] [facility] [address] [id number] [place] [address]- 7944 Sep, [facility] [place] [facility] [address] [id number] [place] [address]- 8773 Sep, [facility] [place] [facility] [address] [id number] [place] [address]- 5984 Sep, [facility] [place] [facility] [address] [id number] [place] [address]- 9373 August, [facility] [place] [facility] [address] [id number] [place] [address]- 9542 August, [facility] [place] [facility] [address] [id number] [place] [address]- 4130 August, [facility] [place] [facility] [address] [id number] [place] [address]- 0257 August, [facility] [place] [facility] [address] [id number] [place] [address]- 5114 August, [facility] [place] [facility] [address] [id number] [place] [address]- 8451 August, [facility] [place] [facility] [address] [id number] [place] [address]- 4014 August, [facility] [place] [facility] [address] [id number] [place] [address]- 5219 August, [facility] [place] [facility] [address] [id number] [place] [address]- 8104 August, [facility] [place] [facility] [address] [id number] [place] [address] August, [facility] [place] [facility] [address] [id number] [place] [address]- 8706 August, [facility] [place] [facility] [address] [id number] [place] [address]- 2854 August, [facility] [place] [facility] [address] [id number] [place] [address]- 8205 August, [facility] [place] [facility] [address] [id number] [place] [address]- 8788 August, [facility] [place] [facility] [address] [id number] [place] [address]- 4638 August, [facility] [place] [facility] [address] [id number] [place] [address]- 9978 August, [facility] [place] [facility] [address] [id number] [place] [address]- 7424 August, [facility] [place] [facility] [address] [id number] [place] [address]- 1506 August, [facility] [place] [facility] [address] [id number] [place] [address]- 8081 Jul, [facility] [place] [facility] [address] [id number] [place] [address]- 8636 Jul, [facility] [place] [facility] [address] [id number] [place] [address]- 5334 Jul, [facility] [place] [facility] [address] [id number] [place] [address]- 4526 Jul, [facility] [place] [facility] [address] [id number] [place] [address]- 4485 24 Jul, 2013 [facility] [address] [id number] [place] [address]- 7838 Jul, [facility] [place] [facility] [address] [id number] [place] [address]- 7482 22 Jul, 2013 [facility] [address] [id number] [place] [address]- 3347 Jul, [facility] [place] [facility] [address] [id number] [place] [address]- 6767 Jul, [facility] [address] [id number] [place] [address]- 3255 Jul, [facility] [address] [id number] [place] [address]- 7919 Jul, [facility] [address] [id number] [place] [address]- 5940 18 Jul, 2013 [facility] [address] [id number] [place] [address]- 8055 18 Jul, 2013 [facility] [place] [facility] [address] [id number] [place] [address]- 6539 17 Jul, 2013 [facility] [address] [id number] [place] [address]- 8396 17 Jul, 2013 [facility] [place] [facility] [address] [id number] [place] [address]- 3587 17 Jul, 2013 [facility] [place] [facility] [address] [id number] [place] [address]- 0634 17 Jul, 2013 [facility] [place] [facility] [address] [id number] [place] [address]- 3891 16 Jul, 2013 [facility] [place] [facility] [address] [id number] [place] [address]- 2182 16 Jul, 2013 [facility] [place] [facility] [address] [id number] [place] [address]- 4266 15 Jul, 2013 [facility] [place] [facility] [address] [id number] [place] [address]- 1989 15 Jul, 2013 [facility] [place] [facility] [address] [id number] [place] [address]- 4691 14 Jul, 2013 [facility] [place] [facility] [address] [id number] [place] [address]- 0234 14 Jul, 2013 [facility] [place] [facility] [address] [id number] [place] [address]- 7036 Jul, [facility] [place] [facility] [address] [id number] [place] [address]- 4366 Jul, [facility] [place] [facility] [address] [id number] [place] [address]- 1137 Jul, [facility] [place] [facility] [address] [id number] [place] [address]- 3180 Jul, [facility] [place] [facility] [address] [id number] [place] [address]- 0847 Jul, [facility] [place] [facility] [address] [id number] [place] [address]- 0207 Jul, [facility] [place] [facility] [address] [id number] [place] [address]- 4812 17 Jun, 2013 [facility] [place] [facility] [address] [id number] [place] [address]- 0560 17 Jun, 2013 [facility] [place] [facility] [address] [id number] [place] [address]- 0652 17 Jun, 2013 [facility] [place] [facility] [address] [id number] [place] [address]- 5132 17 Jun, 2013 [facility] [place] [facility] [address] [id number] [place] [address]- 4027 13 Jun, 2013 [facility] [place] [facility] [address] [id number] [place] [address]797 13 Jun, 2013 [facility] [place] [facility] [address] [id number] [place] [address]- 1762 Jun, [facility] [place] [facility] [address] [id number] [place] [address]- 0372 Jun, [facility] [place] [facility] [address] [id number] [place] [address]- 3326 Jun, [facility] [place] [facility] [address] [facility] [id number] [place] [address]- 1238 Jun, [facility] [place] [facility] [address] [id number] [place] [address]- 4065 Jun, [facility] [place] [facility] [address] [id number] [place] [address]- 7590 Jun, [facility] [place] [facility] [address] [facility] [id number] [place] [address]- 6839 May, [facility] [place] [facility] [address] [facility] [id number] [place] [address]- 9910 May, [facility] [place] [facility] [address] [facility] [id number] [place] [address]- 4332 May, [facility] [place] [facility] [address] [facility] [id number] [place] [address]- 6889 May, 2013 [facility] [place] [facility] [address] [facility] [id number] [place] [address]- 1414 May, [facility] [place] [facility] [address] [facility] [id number] [place] [address]- 8406 May, 2013 [facility] [place] [facility] [address] [facility] [id number] [place] [address]- 3184 May, 2013 [facility] [place] [facility] [address] [facility] [id number] [place] [address]- 3956 May, 2013 [facility] [place] [facility] [address] [facility] [id number] [place] [address]- 5895 May, 2013 [facility] [place] [facility] [address] [facility] [id number] [place] [address]- 2540 May, [facility] [address] [id number] [place] [address]- 5770 Apr, [facility] [place] [facility] [address] [id number] [place] [address]- 3786 Apr, [facility] [place] [facility] [address] [id number] [place] [address]- 9036 Apr, [facility] [place] [facility] [address] [id number] [place] [address]- 0256 Apr, [facility] [place] [facility] [address] [id number] [place] [address]- 2683 Apr, [facility] [place] [facility] [address] [id number] [place] [address]- 0056 Apr, [facility] [place] [facility] [address] [id number] [place] [address]- 7526 Apr, [facility] [place] [facility] [address] [id number] [place] [address]- 6426 Apr, [facility] [place] [facility] [address] [id number] [place] [address]- 1656 Apr, [facility] [place] [facility] [address] [id number], [place] [address]- 3007 Apr, [facility] [place] [facility] [address] [id number], [place] [address]- 2346 Mar, [facility] [place] [facility] [address] [id number], [place] [address]- 3956 Mar, [facility] [place] [facility] [address] [id number] [place] [address]- 8446 Mar, [facility] [place] [facility] [address] [id number] [place] [address]- 6006 Mar, [facility] [place] [facility] [address] [id number] [place] [address]- 3206 Mar, [facility] [place] [facility] [address] [id number], [place] [address]- 1345 Mar, [facility] [place] [facility] [address] [id number] [place] [address]- 4499 Feb, [facility] [place] [facility] [address] [id number], [place] [address]- 4965 Feb, [facility] [place] [facility] [address] [facility] [id number] [place] [address]- 4373 Feb, [facility] [place] [facility] [address] [id number], [place] [address]- 1080 Jan, [facility] [place] [facility] [address] [id number] [place] [address]- 4223 Jan, [facility] [place] [facility] [address] [id number] [place] [address]- 3738 Jan, [facility] [place] [facility] [address] [id number], [place] [address]- 9888 Jan, [facility] [place] [facility] [address] [id number], [place] [address]- 2154 Jan, [facility] [place] [facility] [address] [facility] [id number], [place] [address]- 8870 Jan, [facility] [place] [facility] [address] [facility] [id number], [place] [address]- 0066 Jan, [facility] [place] [facility] [address] [id number], [place] [address]- 6424 Jan, [facility] [place] [facility] [address] [id number], [place] [address]- 2703 Jan, [facility] [place] [facility] [address] [id number][place] 5412 Jan, [facility] [place] [facility] [address] [facility] [id number], [place] [address]- 3114 30 Dec, 2012 [facility] [place] [facility] [address] [id number], [place] [address]- 6338 25 Dec, 2012 [facility] [place] [facility] [address] [id number] [place] [address]- 2325 11 Dec, 2012 [facility] [place] [facility] [address] [id number] [place] [address]- 2986 09 Dec, 2012 [facility] [place] [facility] [address] [id number] [place] [address] 2546 05 Dec, 2012 [facility] [place] [facility] [address] [id number] [place] [address] 2546 Dec, [facility] [place] [facility] [address] [id number] [place] [address] 2541 Nov, [facility] [place] [facility] [address] [id number] [place] [address]- 1501 Nov, [facility] [place] [facility] [address] [id number] [place] [address]- 2835 Nov, [facility] [place] [facility] [address] [id number] [place] [address]- 3119 Nov, [facility] [place] [facility] [address] [id number] [place] [address]- 7451 Nov, [facility] [place] [facility] [address] [id number] [place] [address]- 2236 Nov, [facility] [place] [facility] [address] [id number] [place] [address]- 1953 Nov, [facility] [place] [facility] [address] [id number] [place] [address] 2540 Nov, [facility] [place] [facility] [address] [id number] [place] [address] 2547 Nov, [facility] [place] [facility] [address] [id number] [place] [address]- 2548 Nov, [facility] [place] [facility] [address] [id number] [place] [address]- 2545 Nov, [facility] [place] [facility] [address] [id number] [place] [address]- 4807 Nov, [facility] [address] [id number] [place] [address]- 9962 Oct, [facility] [place] [facility] [address] [id number] [place] [address]- 3754 Oct, [facility] [address] [id number] [place] [address]- 1231 Oct, [facility] [address] [id number] [place] [address]- 3323 Sep, [facility] [address] [id number] [place] [address]- 5008 Sep, [facility] [address] [id number] [place] [address]- 0455 Sep, [facility] [address] [id number] [place] [address]- 2525 August, [facility] [place] [facility] [address] [id number] [place] [address]- 2850 August, [facility] [address] [id number] [place] [address]- 4606 August, [facility] [place] [facility] [address] [id number] [place] [address]- 6453 August, [facility] [place] [facility] [address] [id number] [place] [address]- 5548 August, [facility] [place] [facility] [address] [id number] [place] [address]- 9918 August, [facility] [place] [facility] [address] [id number] [place] [address]- 9627 Jul, [facility] [place] [facility] [address] [id number] [place] [address]- 2691 Jul, [facility] [place] [facility] [address] [id number] [place] [address]- 9093 Jul, [facility] [place] [facility] [address] [id number] [place] [address]- 6318 10 Jul, 2012 [facility] [address] [id number] [place] [address]- 9013 04 Jul, 2012 [facility] [address] [id number] [place] [address]- 6205 04 Jul, 2012 [facility] [address] [id number] [place] [address]- 6253 2012 [facility] [address] [id number] [place] [address]- 4357 20 Jun, 2012 [facility] [address] [id number] [place] [address]- 5333 18 Jun, 2012 [facility] [address] [id number] [place] [address]- 4586 14 Jun, 2012 [facility] [address] [id number] [place] [address]- 5554 Jun, [facility] [address] [id number] [place] [address]- 7354 May, [facility] [address] [id number] [place] [address]- 4856 May, [facility] [address] [id number] [place] [address]- 0338 May, [facility] [address] [id number] [place] [address] May, [facility] [address] [id number] [place] [address] Apr, [facility] [address] [id number] [place] [address] Apr, [facility] [address] [id number] [place] [address] Apr, [facility] [address] [id number] [place] [address] Mar, [facility] [place] [facility] [address] [id number] [place] [address] Mar, [facility] [place] [facility] [address] [id number] [place] [address] 39[address] Mar, [facility] [place] [facility] [address] [id number] [place] [address] 5[address] Mar, [facility] [place] [facility] [address] [id number] [place] [address] Mar, [facility] [place] [facility] [address] [id number] [place] [address] Mar, [facility] [place] [facility] [address] [id number] [place] [address] Mar, [facility] [place] [facility] [address] [id number] [place] [address] 9[address] Mar, [facility] [place] [facility] [address] [id number] [place] [address] Feb, [facility] [place] [facility] [address] [id number] [place] [address] Feb, [facility] [place] [facility] [address] [id number], [place] [address] Feb, [facility] [place] [facility] [address] [id number], [place] [address] Feb, [facility] [place] [facility] [address] [id number], [place] [address] Feb, [facility] [place] [facility] [address] [id number] [place] [address] Feb, [facility] [place] [facility] [address] [id number], [place] [address] Feb, [facility] [place] [facility] [address] [id number], [place] [address] Feb, [facility] [place] [facility] [address] [id number], [place] [address]- [address] Feb, [facility] [place] [facility] [address] [id number] [place] [address]- 98[address] Feb, [facility] [place] [facility] [address] [facility] [id number], [place] [address] Feb, [facility] [place] [facility] [address] [facility] [id number] [place] [address] Feb, [facility] [place] [facility] [address] [facility] [id number], [place] [address] Feb, [facility] [place] [facility] [address] [facility] [id number] [place] [address], [place] [address]- 164[address] Feb, [facility] [place] [facility] [address] [facility] [id number], [place] [address] Feb, [facility] [place] [facility] [id number] [place] [address] Feb, [facility] [place] [facility] [address] [facility] [id number], [place] [address]- [address] Feb, [facility] [place] [facility] [address] [id number], [place] [address] Feb, [facility] [place] [facility] [address] [id number], [place] [address] Jan, [facility] [place] [facility] [address] [facility] [id number], [place] [address] Jan, [facility] [place] [facility] [address] [facility] [id number], [place] [address]- [address] Jan, [facility] [place] [facility] [address] [facility] [id number], [place] [address]- [address] Jan, [facility] [place] [facility] [address] [facility] [id number], [place] [address]- [address] Jan, [facility] [place] [facility] [address] [id number], [place] [address]68 Jan, [facility] [place] [facility] [address] [id number] [place] [address]- 36[address] 18 Jan, 2012 [facility] [place] [facility] [address] [id number] [place] [address]- 39[address] 18 Jan, 2012 [facility] [place] [facility] [address] [id number] [place] [address]- [address] 15 Jan, 2012 [facility] [place] [facility] [address] [id number] [place] [address]- [address] 15 Jan, 2012 [facility] [place] [facility] [address] [id number] [place] [address]- 3842 Jan, [facility] [place] [facility] [address] [id number] [place] [address]- 4818 11 Jan, 2012 [facility] [place] [facility] [address] [id number] [place] [address]- 6131 10 Jan, 2012 [facility] [place] [facility] [address] [id number] [place] [address]- 6279 09 Jan, 2012 [facility] [place] [facility] [address] [id number] [place] [address]- 2634 02 Jan, 2012 [facility] [place] [facility] [address] [id number] [place] [address]- 3434 29 Dec, 2011 [facility] [place] [facility] [address] [id number] [place] [address]- 3508 28 Dec, 2011 [facility] [place] [facility] [address] [id number] [place] [address]- 8268 27 Dec, 2011 [facility] [place] [facility] [address] [id number] [place] [address]- 2547 26 Dec, 2011 [facility] [place] [facility] [address] [id number] [place] [address]- 6942 24 Nov, 2011 [facility] [place] [facility] [address] [id number] [place] [address]- 4734 Nov, [facility] [place] [facility] [address] [id number] [place] [address]- 1802 Nov, [facility] [place] [facility] [address] [id number] [place] [address]- 3781 Nov, [facility] [place] [facility] [address] [id number] [place] [address]- 2576 Nov, [facility] [place] [facility] [address] [id number] [place] [address]- 1017 Nov, [facility] [place] [facility] [address] [id number] [place] [address]- 9989 Nov, [facility] [place] [facility] [address] [id number] [place] [address]- 0773 Nov, [facility] [place] [facility] [address] [id number] [place] [address]- 9412 Nov, [facility] [place] [facility] [address] [id number] [place] [address]- 8878 Nov, [facility] [place] [facility] [address] [id number] [place] [address]- 3281 Nov, [facility] [place] [facility] [address] [id number] [place] [address]- 5144 Oct, [facility] [place] [facility] [address] [id number] [place] [address]- 1579 Oct, [facility] [place] [facility] [address] [id number] [place] [address]- 5771 Oct, [facility] [place] [facility] [address] [id number] [place] [address]- 6538 Oct, [facility] [place] [facility] [address] [id number] [place] [address]- 0626 Oct, [facility] [place] [facility] [address] [id number] [place] [address]- 5076 Oct, [facility] [place] [facility] [address] [id number] [place] [address]- 4814 Oct, [facility] [place] [facility] [address] [id number] [place] [address]- 4993 Oct, [facility] [place] [facility] [address] [id number] [place] [address]- 3218 Sep, [facility] [place] [facility] [address] [id number] [place] [address]- 9004 Sep, [facility] [place] [facility] [address] [id number] [place] [address] Sep, [facility] [place] [facility] [address] [id number] [place] [address] Sep, [facility] [place] [facility] [address] [id number] [place] [address] Sep, [facility] [place] [facility] [address] [id number] [place] [address] Sep, [facility] [address] [id number] [place] [address] Sep, [facility] [place] [facility] [address] [id number] [place] [address] August, [facility] [place] [facility] [address] [id number] [place] [address] August, [facility] [place] [facility] [address] [id number] [place] [address] August, [facility] [place] [facility] [address] [id number] [place] [address] August, [facility] [place] [facility] [address] [id number] [place] [address]274 August, [facility] [place] [facility] [address] [id number] [place] [address] August, [facility] [place] [facility] [address] [id number] [place] [address] August, [facility] [place] [facility] [address] [id number] [place] [address] August, [facility] [place] [facility] [address] [id number] [place] [address]268 28 Jul, 2011 [facility] [place] [facility] [address] [id number] [place] [address] 17 Jul, 2011 [facility] [place] [facility] [address] [id number] [place] [address] 13 Jul, 2011 [facility] [address] [id number] [place] [address] Jul, [facility] [address] [id number] [place] [address] 05 Jul, 2011 [facility] [address] [id number] [place] [address] Jun, [facility] [address] [id number] [place] [address] Jun, [facility] [address] [id number] [place] [address] Jun, [facility] [place] [facility] [address] [id number] [place] [address]703 Jun, [facility] [address] [id number] [place] [address] Jun, [facility] [place] [facility] [address] [id number] [place] [address] 9566 Jun, [facility] [place] [facility] [address] [id number] [place] [address]797 Jun, [facility] [place] [facility] [address] [id number] [place] [address] Jun, [facility] [place] [facility] [address] [id number] [place] [address] Jun, [facility] [place] [facility] [address] [id number] [place] [address] May, [facility] [place] [facility] [address] [id number] [place] [address]255 May, [facility] [place] [facility] [address] [id number] [place] [address]76 May, [facility] [place] [facility] [address] [id number] [place] [address]796 May, [facility] [place] [facility] [address] [id number] [place] [address] May, [facility] [place] [facility] [address] [id number] [place] [address]- [address] May, [facility] [place] [facility] [address] [id number] [place] [address] 4[address] May, [facility] [place] [facility] [address] [id number] [place] [address]186 May, [facility] [place] [facility] [address] [id number] [place] [address]- [address] Apr, [facility] [place] [facility] [address] [id number] [place] [address]- [address] Apr, [facility] [place] [facility] [address] [id number] [place] [address] 1020 Apr, [facility] [place] [facility] [address] [facility] [id number] [place] [address] 9810 Apr, [facility] [place] [facility] [address] [id number] [place] [address] Apr, [facility] [place] [facility] [address] [id number] [place] [address] Apr, [facility] [place] [facility] [address] [id number] [place] [address] Mar, [facility] [place] [facility] [address] [id number] [place] [address] 2546 Mar, [facility] [place] [facility] [address] [id number] [place] [address]- 9541 Mar, [facility] [place] [facility] [address] [id number] [place] [address] Mar, [facility] [place] [facility] [address] [id number] [place] [address] 4264 Mar, [facility] [place] [facility] [address] [id number] [place] [address] Mar, [facility] [place] [facility] [address] [id number] [place] [address] 7963 Mar, [facility] [address] [id number] [place] [address] Mar, [facility] [place] [facility] [address] [id number] [place] [address] 3839 Mar, [facility] [address] [id number] [place] [address]958 Mar, [facility] [address] [id number] [place] [address] 2457 Mar, [facility] [place] [facility] [address] [id number] [place] [address]60 Mar, [facility] [place] [facility] [address] [id number] [place] [address]- 8688 Mar, [facility] [place] [facility] [address] [id number] [place] [address]- [address] Feb, [facility] [place] [facility] [address] [id number] [place] [address]- 1176 Feb, [facility] [place] [facility] [address] [id number] [place] [address]- 8475 Feb, [facility] [place] [facility] [address] [id number] [place] [address]- [address]174 Feb, [facility] [place] [facility] [address] [id number] [place] [address] Feb, [facility] [place] [facility] [address] [id number] [place] [address]- 2485 Feb, [facility] [place] [facility] [address] [id number] [place] [address]- 1684 Feb, [facility] [place] [facility] [address] [id number] [place] [address]- 3266 Jan, [facility] [place] [facility] [address] [id number] [place] [address] 2546 17 Jan, 2011 [facility] [place] [facility] [address] [id number] [place] [address]- [address]39 Jan, [facility] [place] [facility] [address] [id number] [place] [address]- 4464 Nov, [facility] [place] [facility] [address] [id number] [place] [address]- [address] Mar, [facility] [place] [facility] [address] [id number] [place] [address]- 2793 Mar, [facility] [place] [facility] [address] [id number] [place] [address]- 6[address] Mar, [facility] [place] [facility] [address] [id number] [place] [address]- 7195 Mar, [facility] [place] [facility] [address] [id number] [place] [address]- 2781 Mar, [facility] [place] [facility] [address] [id number] [place] [address]- [address]355 Feb, [facility] [place] [facility] [address] [id number] [place] [address]- [address]25 30 Feb, 2010 [facility] [place] [facility] [address] [id number] [place] [address] 2543 Feb, [facility] [place] [facility] [address] [id number] [place] [address]- 2548 Feb, [facility] [place] [facility] [address] [id number] [place] [address]- 254 Feb, [facility] [place] [facility] [address] [facility] [id number] [place] [address] 15 Feb, 2010 IMMUNIZATIONS No Known Immunizations SOCIAL HISTORY Never Assessed REASON FOR VISIT bp check PLAN OF CARE VITAL SIGNS Height 60 in 2017-06-11 Blood pressure systolic 124 mmHg 2017-06-11 Blood pressure diastolic 80 mmHg 2017-06-11 MEDICATIONS Unknown Medications RESULTS No Results PROCEDURES [...]
--- OUTSIDE RECORDS SUMMARY | 2017-12-22 04:07 | XMS REPORT ---
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 Schizoaffective disorder, unspecified 295.70 [place] [address] [id number] [place] [address]- 5506 Oct, [facility] [place] [facility] [address] [id number] [place] [address]- 4126 Sep, [facility] [place] [facility] [address] [id number] [place] [address]- 6766 August, [facility] [place] [facility] [address] [id number] [place] [address]- 8666 August, [facility] [place] [facility] [address] [id number] [place] [address]- 0947 August, [facility] [place] [facility] [address] [id number] [place] [address]- 9176 August, [facility] [place] [facility] [address] [id number] [place] [address]- 5881 Jul, [facility] [place] [facility] [address] [id number] [place] [address]- 1067 Jul, [facility] [place] [facility] [address] [id number] [place] [address]- 5892 Jun, [facility] [place] [facility] [address] [id number] [place] [address]- 5891 Jun, [facility] [place] [facility] [address] [id number] [place] [address]- 0488 Jun, [facility] [place] [facility] [address] [id number] [place] [address]- 8689 Jun, [facility] [place] [facility] [address] [id number] [place] [address]- 5801 Jun, [facility] [place] [facility] [address] [id number] [place] [address]- 4484 Jun, [facility] [place] [facility] [address] [id number] [place] [address]- 2830 Jun, [facility] [place] [facility] [address] [id number] [place] [address]- 3349 23 Jun, 2014 [facility] [place] [facility] [address] [id number] [place] [address]- 7929 23 Jun, 2014 [facility] [place] [facility] [address] [id number] [place] [address]- 7593 23 Jun, 2014 [facility] [place] [facility] [address] [id number] [place] [address]- 2629 23 Jun, 2014 [facility] [place] [facility] [address] [id number] [place] [address]- 7276 23 Jun, 2014 [facility] [place] [facility] [address] [id number] [place] [address]- 5074 19 Jun, 2014 [facility] [place] [facility] [address] [id number] [place] [address]- 5464 19 Jun, 2014 [facility] [place] [facility] [address] [id number] [place] [address]- 4812 19 Jun, 2014 [facility] [place] [facility] [address] [id number] [place] [address]- 2095 19 Jun, 2014 [facility] [place] [facility] [address] [id number] [place] [address]- 1900 18 Jun, 2014 [facility] [place] [facility] [address] [id number] [place] [address]- 0947 18 Jun, 2014 [facility] [place] [facility] [address] [id number] [place] [address]- 1123 18 Jun, 2014 [facility] [place] [facility] [address] [id number] [address]- 6218 18 Jun, 2014 [facility] [place] [facility] [address] [id number] [place] [address]- 8710 17 Jun, 2014 [facility] [place] [facility] [address] [id number] [place] [address]- 8214 17 Jun, 2014 [facility] [place] [facility] [address] [id number] [place] [address]- 7872 17 Jun, 2014 [facility] [place] [facility] [address] [id number] [place] [address]- 7954 17 Jun, 2014 [facility] [place] [facility] [address] [id number] [place] [address]- 0079 13 Jun, 2014 [facility] [place] [facility] [address] [id number] [place] [address]- 1911 13 Jun, 2014 [facility] [place] [facility] [address] [id number] [place] [address]- 2089 12 Jun, 2014 [facility] [place] [facility] [address] [id number] [place] [address]- 6304 12 Jun, 2014 [facility] [place] [facility] [address] [id number] [place] [address]- 0289 10 Jun, 2014 [facility] [place] [facility] [address] [id number] [place] [address]- 3600 10 Jun, 2014 [facility] [place] [facility] [address] [id number] [place] [address]- 7276 10 Jun, 2014 [facility] [place] [facility] [address] [id number] [place] [address]- 1318 10 Jun, 2014 [facility] [place] [facility] [address] [id number] [place] [address]- 4043 06 Jun, 2014 [facility] [place] [facility] [address] [id number] [place] [address]- 1262 06 Jun, 2014 [facility] [place] [facility] [address] [id number] [place] [address]- 1868 05 Jun, 2014 [facility] [place] [facility] [address] [id number] [place] [address]- 4725 Jun, [facility] [place] [facility] [address] [id number] [place] [address]- 3964 Jun, [facility] [place] [facility] [address] [id number] [place] [address]- 3469 Jun, [facility] [place] [facility] [address] [id number] [place] [address]- 6548 May, [facility] [place] [facility] [address] [id number] [place] [address]- 3698 May, 2014 [facility] [place] [facility] [address] [facility] [id number] [place] [address]- 3736 May, 2014 [facility] [place] [facility] [address] [facility] [id number] [place] [address]- 8476 May, 2014 [facility] [place] [facility] [address] [facility] [id number] [place] [address]- 4746 May, 2014 [facility] [place] [facility] [address] [facility] [id number] [place] [address]- 5624 May, 2014 [facility] [place] [facility] [address] [facility] [id number] [place] [address]- 6939 May, 2014 [facility] [place] [facility] [address] [facility] [id number] [place] [address]- 9149 May, 2014 [facility] [place] [facility] [address] [facility] [id number] [place] [address]- 6524 May, 2014 [facility] [place] [facility] [address] [facility] [id number] [place] [address]- 9224 May, 2014 [facility] [place] [facility] [address] [facility] [id number] [place] [address]- 3933 May, 2014 [facility] [place] [facility] [address] [facility] [id number] [place] [address]- 5105 May, 2014 [facility] [place] [facility] [address] [facility] [id number] [address]- 4935 May, 2014 [facility] [place] [facility] [address] [facility] [id number] [place] [address]- 3951 May, 2014 [facility] [place] [facility] [address] [facility] [id number] [place] [address]- 2295 May, 2014 [facility] [place] [facility] [address] [facility] [id number] [place] [address]- 7833 May2014 [facility] [place] [facility] [address] [id number] [place] [address]- 7420 Apr, [facility] [place] [facility] [address] [id number] [place] [address]- 8972 Apr, [facility] [place] [facility] [address] [id number] [place] [address]- 1096 Apr, [facility] [place] [facility] [address] [id number] [place] [address]- 2474 Apr, [facility] [place] [facility] [address] [id number] [place] [address]- 7813 Apr, [facility] [place] [facility] [address] [id number] [place] [address]- 5823 Apr, [facility] [place] [facility] [address] [id number] [place] [address]- 5388 Apr, [facility] [place] [facility] [address] [id number] [place] [address]- 7907 Apr, [facility] [place] [facility] [address] [id number] [place] [address]- 9053 Apr, [facility] [place] [facility] [address] [id number] [place] [address]- 7560 Apr, [facility] [place] [facility] [address] [id number] [place] [address]- 2138 Apr, [facility] [place] [facility] [address] [id number] [place] [address]- 2413 Apr, [facility] [place] [facility] [address] [id number] [place] [address]- 1580 Apr, [facility] [place] [facility] [address] [id number] [place] [address]- 2224 Apr, [facility] [place] [facility] [address] [id number] [place] [address]- 3106 Apr, [facility] [place] [facility] [address] [id number] [place] [address]- 3681 Mar, [facility] [place] [facility] [address] [id number] [place] [address]- 6352 29 Mar, 2014 [facility] [place] [facility] [address] [id number] [place] [address]- 7696 Mar, [facility] [place] [facility] [address] [id number] [place] [address]- 9646 Mar, [facility] [place] [facility] [address] [id number] [place] [address]- 6359 Mar, [facility] [place] [facility] [address] [id number] [place] [address]- 6452 Mar, [facility] [place] [facility] [address] [id number] [place] [address]- 0552 Mar, [facility] [place] [facility] [address] [id number] [place] [address]- 5930 15 Mar, 2014 [facility] [place] [facility] [address] [id number] [place] [address]- 1177 15 Mar, 2014 [facility] [place] [facility] [address] [id number] [place] [address]- 0338 Mar, [facility] [place] [facility] [address] [id number] [place] [address]- 3090 15 Mar, 2014 [facility] [place] [facility] [address] [id number] [place] [address]- 0270 15 Mar, 2014 [facility] [place] [facility] [address] [id number] [place] [address]- 6537 12 Mar, 2014 [facility] [place] [facility] [address] [id number] [place] [address]- 0156 Mar, [facility] [place] [facility] [address] [id number] [place] [address]- 2691 Mar, [facility] [place] [facility] [address] [id number] [place] [address]- 6790 Mar, [facility] [place] [facility] [address] [id number] [place] [address]- 1713 Mar, [facility] [place] [facility] [address] [id number] [place] [address]- 5718 Mar, [facility] [place] [facility] [address] [id number] [place] [address]- 7759 Feb, [facility] [place] [facility] [address] [id number] [place] 9750 Feb, [facility] [place] [facility] [address] [id number] [place] [address]- 2399 Feb, [facility] [place] [facility] [address] [id number] [place] [address]- 1526 Feb, [facility] [place] [facility] [address] [id number] [place] [address]- 8697 Feb, [facility] [place] [facility] [address] [id number] [place] [address]- 6545 Feb, [facility] [place] [facility] [address] [id number] [place] [address] Feb, [facility] [place] [facility] [address] [id number] [place] [address] Feb, [facility] [place] [facility] [address] [id number] [place] [address] Jan, [facility] [place] [facility] [address] [id number] [place] [address] Jan, [facility] [place] [facility] [address] [id number] [place] [address] Jan, [facility] [place] [facility] [address] [id number] [place] [address] Jan, [facility] [place] [facility] [address] [id number] [place] [address] Jan, [facility] [place] [facility] [address] [id number] [place] [address] Jan, [facility] [place] [facility] [address] [id number] [place] [address] Jan, [facility] [place] [facility] [address] [id number] [place] [address] Jan, [facility] [place] [facility] [address] [id number] [place] [address] Jan, [facility] [place] [facility] [address] [id number] [place] [address] Jan, [facility] [place] [facility] [address] [id number] [place] [address] Jan, [facility] [place] [facility] [address] [id number] [place] [address] Jan, [facility] [place] [facility] [address] [id number] [place] [address] Jan, [facility] [place] [facility] [address] [id number] [place] [address] Jan, [facility] [place] [facility] [address] [id number] [place] [address] Jan, [facility] [place] [facility] [address] [id number] [address] 16 Jan, 2014 [facility] [place] [facility] [address] [id number], [place] [address] Jan, [facility] [place] [facility] [address] [id number], [place] [address] Jan, [facility] [place] [facility] [address] [id number] [place] [address] 29 Dec, 2013 [facility] [place] [facility] [address] [id number] [place] [address] 29 Dec, 2013 [facility] [place] [facility] [address] [id number], [place] [address] 26 Dec, 2013 [facility] [place] [facility] [address] [id number], [place] [address] 26 Dec, 2013 [facility] [place] [facility] [address] [id number] [place] [address]46 26 Dec, 2013 [facility] [place] [facility] [address] [id number] [place] [address] 2546 26 Dec, 2013 [facility] [place] [facility] [address] [id number] [place] [address]- [address] 23 Dec, 2013 [facility] [place] [facility] [address] [id number] [place] [address] 2541 23 Dec, 2013 [facility] [place] [facility] [address] [id number] [place] [address] 22 Dec, 2013 [facility] [place] [facility] [address] [id number] [place] [address] 22 Dec, 2013 [facility] [place] [facility] [address] [id number] [place] [address] 16 Dec, 2013 [facility] [place] [facility] [address] [id number] [place] [address] 16 Dec, 2013 [facility] [place] [facility] [address] [id number] [place] [address]68 15 Dec, 2013 [facility] [place] [facility] [address] [id number] [place] [address] 15 Dec, 2013 [facility] [place] [facility] [address] [id number] [place] [address]- [address] Dec, 2013 [facility] [place] [facility] [address] [id number] [place] [address]- [address] Dec, 2013 [facility] [place] [facility] [address] [id number] [place] [address] 2541 Dec, [facility] [place] [facility] [address] [id number] [place] [address] Nov, [facility] [place] [facility] [address] [id number] [place] [address] Nov, [facility] [place] [facility] [address] [id number] [place] [address] Nov, [facility] [place] [facility] [address] [id number] [place] [address] Nov, [facility] [place] [facility] [address] [id number] [place] [address] Nov, [facility] [place] [facility] [address] [id number] [place] [address] Nov, [facility] [place] [facility] [address] [id number] [place] [address]- [address] Nov, [facility] [place] [facility] [address] [id number] [place] [address] 73[address] Nov, [facility] [place] [facility] [address] [id number] [place] [address]- [address]71 Nov, [facility] [place] [facility] [address] [id number] [place] [address] Nov, [facility] [place] [facility] [address] [id number] [place] [address] Nov, [facility] [place] [facility] [address] [id number] [place] [address]- [address] Nov, [facility] [place] [facility] [address] [id number] [place] [address] Nov, [facility] [place] [facility] [address] [id number] [place] [address] Nov, [facility] [place] [facility] [address] [id number] [place] [address] 9580 Nov, [facility] [place] [facility] [address] [id number] [place] [address] Nov, [facility] [place] [facility] [address] [id number] [place] [address] Nov, [facility] [place] [facility] [address] [id number] [place] [address] Nov, [facility] [place] [facility] [address] [id number] [place] [address] Nov, [facility] [place] [facility] [address] [id number] [place] [address]16 Nov, [facility] [place] [facility] [address] [id number] [place] [address] Nov, [facility] [place] [facility] [address] [id number] [place] [address] 5366 Oct, [facility] [place] [facility] [address] [id number] [place] [address] 9248 Oct, [facility] [place] [facility] [address] [id number] [place] [address]388 Oct, [facility] [place] [facility] [address] [id number] [place] [address] 3711 Oct, [facility] [place] [facility] [address] [id number] [place] [address] 2103 Oct, [facility] [place] [facility] [address] [id number] [place] [address]- 7286 Oct, [facility] [place] [facility] [address] [id number] [place] [address] 1462 Oct, [facility] [place] [facility] [address] [id number] [place] [address]- 5631 Oct, [facility] [place] [facility] [address] [id number] [place] [address] 6436 Oct, [facility] [place] [facility] [address] [id number] [place] [address] 9[address] Oct, [facility] [place] [facility] [address] [id number] [place] [address]- 3169 Oct, [facility] [place] [facility] [address] [id number] [place] [address] 4039 Oct, [facility] [place] [facility] [address] [id number] [place] [address]- 4483 Oct, [facility] [place] [facility] [address] [id number] [place] [address]- 1642 Oct, [facility] [place] [facility] [address] [id number] [place] [address]- 9636 Oct, [facility] [place] [facility] [address] [id number] [place] [address] 8446 Sep, [facility] [place] [facility] [address] [id number] [place] [address]- 4518 Sep, [facility] [place] [facility] [address] [id number] [place] [address]- 4686 Sep, [facility] [place] [facility] [address] [id number] [place] [address]- 6513 Sep, [facility] [place] [facility] [address] [id number] [place] [address]- 0862 Sep, [facility] [place] [facility] [address] [id number] [place] [address]- 4905 Sep, [facility] [place] [facility] [address] [id number] [place] [address]- 5335 Sep, [facility] [place] [facility] [address] [facility] [id number] [place] [address]- 0917 Sep, [facility] [place] [facility] [address] [id number] [place] [address]- 6972 17 Sep, 2013 [facility] [place] [facility] [address] [id number] [place] [address]- 5881 16 Sep, 2013 [facility] [place] [facility] [address] [id number] [place] [address]- 7327 Sep, [facility] [place] [facility] [address] [id number] [place] [address]- 5924 Sep, [facility] [place] [facility] [address] [id number] [place] [address]- 4528 Sep, [facility] [place] [facility] [address] [id number] [place] [address]- 6955 Sep, [facility] [place] [facility] [address] [id number] [place] [address]- 7945 Sep, [facility] [place] [facility] [address] [id number] [place] [address]- 3281 Sep, [facility] [place] [facility] [address] [id number] [place] [address]- 2495 Sep, [facility] [place] [facility] [address] [id number] [place] [address]- 7517 Sep, [facility] [place] [facility] [address] [id number] [place] [address]- 5678 Sep, [facility] [place] [facility] [address] [id number] [place] [address]- 9653 Sep, [facility] [place] [facility] [address] [id number] [place] [address]- 6515 Sep, [facility] [place] [facility] [address] [id number] [place] [address]- 3082 Sep, [facility] [place] [facility] [address] [id number] [place] [address] 7299 August, [facility] [place] [facility] [address] [id number] [place] [address] 5086 August, [facility] [place] [facility] [address] [id number] [place] [address]- 0625 August, [facility] [place] [facility] [address] [id number] [place] [address]- 6579 August, [facility] [place] [facility] [address] [id number] [place] [address]- 6546 August, [facility] [place] [facility] [address] [id number] [place] [address]- 0637 August, [facility] [place] [facility] [address] [id number] [place] [address]- 3636 August, [facility] [place] [facility] [address] [id number] [place] [address]- 1782 August, [facility] [place] [facility] [address] [id number] [place] [address]- 7927 August, [facility] [place] [facility] [address] [id number] [place] [address] August, [facility] [place] [facility] [address] [id number] [place] [address]- 2465 August, [facility] [place] [facility] [address] [id number] [place] [address]- 3690 August, [facility] [place] [facility] [address] [id number] [place] [address]- 2896 August, [facility] [place] [facility] [address] [id number] [place] [address]- 5530 August, [facility] [place] [facility] [address] [id number] [place] [address]- 1717 August, [facility] [place] [facility] [address] [id number] [place] [address]- 1873 August, [facility] [place] [facility] [address] [id number] [place] [address]- 8189 August, [facility] [place] [facility] [address] [id number] [place] [address] 1884 August, [facility] [place] [facility] [address] [id number] [place] [address]- 2856 Jul, [facility] [place] [facility] [address] [id number] [place] [address]- 2195 Jul, [facility] [place] [facility] [address] [id number] [place] [address]- 4415 Jul, [facility] [place] [facility] [address] [id number] [place] [address]- 8305 Jul, [facility] [place] [facility] [address] [id number] [place] [address]- 9958 24 Jul, 2013 [facility] [address] [id number] [place] [address]- 5724 Jul, [facility] [place] [facility] [address] [id number] [place] [address]- 9294 22 Jul, 2013 [facility] [address] [id number] [place] [address]- 2277 Jul, [facility] [place] [facility] [address] [id number] [place] [address]- 0344 Jul, [facility] [address] [id number] [place] [address]- 8849 Jul, [facility] [address] [id number] [place] [address]- 8997 Jul, [facility] [address] [id number] [place] [address]- 8972 18 Jul, 2013 [facility] [address] [id number] [place] [address]- 1073 18 Jul, 2013 [facility] [place] [facility] [address] [id number] [place] [address]- 7618 17 Jul, 2013 [facility] [address] [id number] [place] [address]- 5145 17 Jul, 2013 [facility] [place] [facility] [address] [id number] [place] [address]- 2986 17 Jul, 2013 [facility] [place] [facility] [address] [id number] [place] [address]- 5080 17 Jul, 2013 [facility] [place] [facility] [address] [id number] [place] [address]- 0189 16 Jul, 2013 [facility] [place] [facility] [address] [id number] [place] [address]- 4700 16 Jul, 2013 [facility] [place] [facility] [address] [id number] [place] [address]- 6112 15 Jul, 2013 [facility] [place] [facility] [address] [id number] [place] [address]- 6101 15 Jul, 2013 [facility] [place] [facility] [address] [id number] [place] [address]- 4418 14 Jul, 2013 [facility] [place] [facility] [address] [id number] [place] [address]- 2827 14 Jul, 2013 [facility] [place] [facility] [address] [id number] [place] [address]- 0394 Jul, [facility] [place] [facility] [address] [id number] [place] [address]- 3660 Jul, [facility] [place] [facility] [address] [id number] [place] [address]- 1228 Jul, [facility] [place] [facility] [address] [id number] [place] [address]- 9422 Jul, [facility] [place] [facility] [address] [id number] [place] [address]- 2381 Jul, [facility] [place] [facility] [address] [id number] [place] [address]- 2062 Jul, [facility] [place] [facility] [address] [id number] [place] [address]- 4068 17 Jun, 2013 [facility] [place] [facility] [address] [id number] [place] [address]- 5431 17 Jun, 2013 [facility] [place] [facility] [address] [id number] [place] [address]- 9034 17 Jun, 2013 [facility] [place] [facility] [address] [id number] [place] [address]- 0995 17 Jun, 2013 [facility] [place] [facility] [address] [id number] [place] [address]- 6506 13 Jun, 2013 [facility] [place] [facility] [address] [id number] [place] 13 Jun, 2013 [facility] [place] [facility] [address] [id number] [place] [address]- 8881 Jun, [facility] [place] [facility] [address] [id number] [place] [address]- 9632 Jun, [facility] [place] [facility] [address] [id number] [place] [address]- 8050 Jun, [facility] [place] [facility] [address] [facility] [id number] [place] [address]- 8764 Jun, [facility] [place] [facility] [address] [id number] [place] [address]- 0517 Jun, [facility] [place] [facility] [address] [id number] [place] [address]- 7805 Jun, [facility] [place] [facility] [address] [facility] [id number] [place] [address]- 4108 May, [facility] [place] [facility] [address] [facility] [id number] [place] [address]- 9752 May, [facility] [place] [facility] [address] [facility] [id number] [place] [address]- 8118 May, [facility] [place] [facility] [address] [facility] [id number] [place] [address]- 2482 May, 2013 [facility] [place] [facility] [address] [facility] [id number] [place] [address]- 8339 May, [facility] [place] [facility] [address] [facility] [id number] [place] [address]- 1262 May, 2013 [facility] [place] [facility] [address] [facility] [id number] [place] [address]- 4293 May, 2013 [facility] [place] [facility] [address] [facility] [id number] [place] [address]- 4774 May, 2013 [facility] [place] [facility] [address] [facility] [id number] [place] [address]- 7238 May, 2013 [facility] [place] [facility] [address] [facility] [id number] [place] [address]- 2195 May, [facility] [address] [id number] [place] [address]- 7946 Apr, [facility] [place] [facility] [address] [id number] [place] [address]- 4966 Apr, [facility] [place] [facility] [address] [id number] [place] [address]- 1456 Apr, [facility] [place] [facility] [address] [id number] [place] [address]- 4606 Apr, [facility] [place] [facility] [address] [id number] [place] [address]- 4596 Apr, [facility] [place] [facility] [address] [id number] [place] [address]- 8846 Apr, [facility] [place] [facility] [address] [id number] [place] [address]- 7056 Apr, [facility] [place] [facility] [address] [id number] [place] [address]- 0296 Apr, [facility] [place] [facility] [address] [id number] [place] [address]- 1395 Apr, [facility] [place] [facility] [address] [id number], [place] [address]- 1451 Apr, [facility] [place] [facility] [address] [id number], [place] [address]- 3746 Mar, [facility] [place] [facility] [address] [id number], [place] [address]- 4856 Mar, [facility] [place] [facility] [address] [id number] [place] [address]- 8356 Mar, [facility] [place] [facility] [address] [id number] [place] [address]- 3196 Mar, [facility] [place] [facility] [address] [id number] [place] [address]- 6886 Mar, [facility] [place] [facility] [address] [id number], [place] [address]- 8851 Mar, [facility] [place] [facility] [address] [id number] [place] [address]- 3418 Feb, [facility] [place] [facility] [address] [id number], [place] [address]- 7334 Feb, [facility] [place] [facility] [address] [facility] [id number] [place] [address]- 0790 Feb, [facility] [place] [facility] [address] [id number], [place] [address]- 3271 Jan, [facility] [place] [facility] [address] [id number] [place] [address]- 3512 Jan, [facility] [place] [facility] [address] [id number] [place] [address]- 6349 Jan, [facility] [place] [facility] [address] [id number], [place] [address]- 9102 Jan, [facility] [place] [facility] [address] [id number], [place] [address]- 1687 Jan, [facility] [place] [facility] [address] [facility] [id number], [place] [address]- 3153 Jan, [facility] [place] [facility] [address] [facility] [id number], [place] [address]- 0572 Jan, [facility] [place] [facility] [address] [id number], [place] [address]- 6700 Jan, [facility] [place] [facility] [address] [id number], [place] [address]- 4194 Jan, [facility] [place] [facility] [address] [id number] 7036 Jan, [facility] [place] [facility] [address] [facility] [id number], [place] [address]- 8616 30 Dec, 2012 [facility] [place] [facility] [address] [id number], [place] [address]- 3147 25 Dec, 2012 [facility] [place] [facility] [address] [id number] [place] [address]- 1264 11 Dec, 2012 [facility] [place] [facility] [address] [id number] [place] [address]- 5206 09 Dec, 2012 [facility] [place] [facility] [address] [id number] [place] [address] 2546 05 Dec, 2012 [facility] [place] [facility] [address] [id number] [place] [address] 2546 Dec, [facility] [place] [facility] [address] [id number] [place] [address] 2548 Nov, [facility] [place] [facility] [address] [id number] [place] [address]- 0137 Nov, [facility] [place] [facility] [address] [id number] [place] [address]- 5669 Nov, [facility] [place] [facility] [address] [id number] [place] [address]- 2158 Nov, [facility] [place] [facility] [address] [id number] [place] [address]- 8909 Nov, [facility] [place] [facility] [address] [id number] [place] [address]- 1777 Nov, [facility] [place] [facility] [address] [id number] [place] [address]- 5236 Nov, [facility] [place] [facility] [address] [id number] [place] [address] 2548 Nov, [facility] [place] [facility] [address] [id number] [place] [address] 2541 Nov, [facility] [place] [facility] [address] [id number] [place] [address]- 2545 Nov, [facility] [place] [facility] [address] [id number] [place] [address]- 2544 Nov, [facility] [place] [facility] [address] [id number] [place] [address]- 7722 Nov, [facility] [address] [id number] [place] [address]- 8200 Oct, [facility] [place] [facility] [address] [id number] [place] [address]- 7419 Oct, [facility] [address] [id number] [place] [address]- 5342 Oct, [facility] [address] [id number] [place] [address]- 9035 Sep, [facility] [address] [id number] [place] [address]- 8507 Sep, [facility] [address] [id number] [place] [address]- 1611 Sep, [facility] [address] [id number] [place] [address]- 9804 August, [facility] [place] [facility] [address] [id number] [place] [address]- 0029 August, [facility] [address] [id number] [place] [address]- 3724 August, [facility] [place] [facility] [address] [id number] [place] [address]- 8909 August, [facility] [place] [facility] [address] [id number] [place] [address]- 1195 August, [facility] [place] [facility] [address] [id number] [place] [address]- 9845 August, [facility] [place] [facility] [address] [id number] [place] [address]- 7077 Jul, [facility] [place] [facility] [address] [id number] [place] [address]- 8178 Jul, [facility] [place] [facility] [address] [id number] [place] [address]- 2469 Jul, [facility] [place] [facility] [address] [id number] [place] [address]- 6536 10 Jul, 2012 [facility] [address] [id number] [place] [address]- 9067 04 Jul, 2012 [facility] [address] [id number] [place] [address]- 2742 04 Jul, 2012 [facility] [address] [id number] [place] [address]- 6170 2012 [facility] [address] [id number] [place] [address]- 6186 20 Jun, 2012 [facility] [address] [id number] [place] [address]- 5637 18 Jun, 2012 [facility] [address] [id number] [place] [address]- 8597 14 Jun, 2012 [facility] [address] [id number] [place] [address]- 8218 Jun, [facility] [address] [id number] [place] [address]- 3161 May, [facility] [address] [id number] [place] [address]- 4926 May, [facility] [address] [id number] [place] [address]- 9695 May, [facility] [address] [id number] [place] [address]- 4836 May, [facility] [address] [id number] [place] [address]- 3137 Apr, [facility] [address] [id number] [place] [address]- 4241 Apr, [facility] [address] [id number] [place] [address] Apr, [facility] [address] [id number] [place] [address] Mar, [facility] [place] [facility] [address] [id number] [place] [address] Mar, [facility] [place] [facility] [address] [id number] [place] [address] Mar, [facility] [place] [facility] [address] [id number] [place] [address] Mar, [facility] [place] [facility] [address] [id number] [place] [address] Mar, [facility] [place] [facility] [address] [id number] [place] [address] Mar, [facility] [place] [facility] [address] [id number] [place] [address] Mar, [facility] [place] [facility] [address] [id number] [place] [address] Mar, [facility] [place] [facility] [address] [id number] [place] [address] Feb, [facility] [place] [facility] [address] [id number] [place] [address] Feb, [facility] [place] [facility] [address] [id number], [place] [address] Feb, [facility] [place] [facility] [address] [id number][place] [address] Feb, [facility] [place] [facility] [address] [id number], [place] [address] Feb, [facility] [place] [facility] [address] [id number] [place] [address] Feb, [facility] [place] [facility] [address] [id number] [address] Feb, [facility] [place] [facility] [address] [id number], [place] [address] Feb, [facility] [place] [facility] [address] [id number][place] [address] Feb, [facility] [place] [facility] [address] [id number] [place] [address] Feb, [facility] [place] [facility] [address] [facility] [id number], [place] [address] Feb, [facility] [place] [facility] [address] [facility] [id number] [place] [address] Feb, [facility] [place] [facility] [address] [facility] [id number][place] [address] Feb, [facility] [place] [facility] [address] [facility] [id number] [place] [address], [place] [address] Feb, [facility] [place] [facility] [address] [facility] [id number][place] [address] Feb, [facility] [place] [facility] [id number] [place] [address] Feb, [facility] [place] [facility] [address] [facility] [id number], [place] [address] Feb, [facility] [place] [facility] [address] [id number], [place] [address] Feb, [facility] [place] [facility] [address] [id number], [place] [address] Jan, [facility] [place] [facility] [address] [facility] [id number], [place] [address] Jan, [facility] [place] [facility] [address] [facility] [id number], [place] [address] Jan, [facility] [place] [facility] [address] [facility] [id number], [place] [address] Jan, [facility] [place] [facility] [address] [facility] [id number][place] [address] Jan, [facility] [place] [facility] [address] [id number], [place] [address] Jan, [facility] [place] [facility] [address] [id number] [place] [address] 18 Jan, 2012 [facility] [place] [facility] [address] [id number] [place] [address] 18 Jan, 2012 [facility] [place] [facility] [address] [id number] [place] [address] 15 Jan, 2012 [facility] [place] [facility] [address] [id number] [place] [address] 15 Jan, 2012 [facility] [place] [facility] [address] [id number] [place] [address] Jan, [facility] [place] [facility] [address] [id number] [place] [address]- 4969 11 Jan, 2012 [facility] [place] [facility] [address] [id number] [place] [address]43 10 Jan, 2012 [facility] [place] [facility] [address] [id number] [place] [address]- [address] 09 Jan, 2012 [facility] [place] [facility] [address] [id number] [place] [address]- [address] 02 Jan, 2012 [facility] [place] [facility] [address] [id number] [place] [address]- [address] 29 Dec, 2011 [facility] [place] [facility] [address] [id number] [place] [address]- [address] 28 Dec, 2011 [facility] [place] [facility] [address] [id number] [place] [address] 27 Dec, 2011 [facility] [place] [facility] [address] [id number] [place] [address]- [address] 26 Dec, 2011 [facility] [place] [facility] [address] [id number] [place] [address]- [address] 24 Nov, 2011 [facility] [place] [facility] [address] [id number] [place] [address]- [address] Nov, [facility] [place] [facility] [address] [id number] [place] [address]- [address] Nov, [facility] [place] [facility] [address] [id number] [place] [address] Nov, [facility] [place] [facility] [address] [id number] [place] [address]- 9863 Nov, [facility] [place] [facility] [address] [id number] [place] [address]- [address] Nov, [facility] [place] [facility] [address] [id number] [place] [address]- [address] Nov, [facility] [place] [facility] [address] [id number] [place] [address]- [address] Nov, [facility] [place] [facility] [address] [id number] [place] [address]- [address] Nov, [facility] [place] [facility] [address] [id number] [place] [address]- 2016 Nov, [facility] [place] [facility] [address] [id number] [place] [address] Nov, [facility] [place] [facility] [address] [id number] [place] [address]- [address] Oct, [facility] [place] [facility] [address] [id number] [place] [address]- [address]69 Oct, [facility] [place] [facility] [address] [id number] [place] [address]- 3299 Oct, [facility] [place] [facility] [address] [id number] [place] [address]- 60[address] Oct, [facility] [place] [facility] [address] [id number] [place] [address]- 0769 Oct, [facility] [place] [facility] [address] [id number] [place] [address]- 8[address] Oct, [facility] [place] [facility] [address] [id number] [place] [address]- 79[address] Oct, [facility] [place] [facility] [address] [id number] [place] [address]- [address] Oct, [facility] [place] [facility] [address] [id number] [place] [address]- [address] Sep, [facility] [place] [facility] [address] [id number] [place] [address]- 1069 Sep, [facility] [place] [facility] [address] [id number] [place] [address]- [address] Sep, [facility] [place] [facility] [address] [id number] [place] [address]- 93[address] Sep, [facility] [place] [facility] [address] [id number] [place] [address]- [address] Sep, [facility] [place] [facility] [address] [id number] [place] [address] Sep, [facility] [address] [id number] [place] [address] Sep, [facility] [place] [facility] [address] [id number] [place] [address] August, [facility] [place] [facility] [address] [id number] [place] [address] August, [facility] [place] [facility] [address] [id number] [place] [address] August, [facility] [place] [facility] [address] [id number] [place] [address] August, [facility] [place] [facility] [address] [id number] [place] [address] August, [facility] [place] [facility] [address] [id number] [place] [address] August, [facility] [place] [facility] [address] [id number] [place] [address] August, [facility] [place] [facility] [address] [id number] [place] [address] August, [facility] [place] [facility] [address] [id number] [place] [address] 28 Jul, 2011 [facility] [place] [facility] [address] [id number] [place] [address] 17 Jul, 2011 [facility] [place] [facility] [address] [id number] [place] [address] 13 Jul, 2011 [facility] [address] [id number] [place] [address] Jul, [facility] [address] [id number] [place] [address] 05 Jul, 2011 [facility] [address] [id number] [place] [address] Jun, [facility] [address] [id number] [place] [address] Jun, [facility] [address] [id number] [place] [address] Jun, [facility] [place] [facility] [address] [id number] [place] [address] Jun, [facility] [address] [id number] [place] [address] Jun, [facility] [place] [facility] [address] [id number] [place] [address] Jun, [facility] [place] [facility] [address] [id number] [place] [address] Jun, [facility] [place] [facility] [address] [id number] [place] [address] Jun, [facility] [place] [facility] [address] [id number] [place] [address] Jun, [facility] [place] [facility] [address] [id number] [place] [address] May, [facility] [place] [facility] [address] [id number] [place] [address] May, [facility] [place] [facility] [address] [id number] [place] [address] May, [facility] [place] [facility] [address] [id number] [place] [address] May, [facility] [place] [facility] [address] [id number] [place] [address] May, [facility] [place] [facility] [address] [id number] [place] [address] May, [facility] [place] [facility] [address] [id number] [place] [address] May, [facility] [place] [facility] [address] [id number] [place] [address] May, [facility] [place] [facility] [address] [id number] [place] [address] Apr, [facility] [place] [facility] [address] [id number] [place] [address] Apr, [facility] [place] [facility] [address] [id number] [place] [address] Apr, [facility] [place] [facility] [address] [facility] [id number] [place] [address] Apr, [facility] [place] [facility] [address] [id number] [place] [address] Apr, [facility] [place] [facility] [address] [id number] [place] [address] Apr, [facility] [place] [facility] [address] [id number] [place] [address] Mar, [facility] [place] [facility] [address] [id number] [place] [address] Mar, [facility] [place] [facility] [address] [id number] [place] [address] Mar, [facility] [place] [facility] [address] [id number] [place] [address] Mar, [facility] [place] [facility] [address] [id number] [place] [address] Mar, [facility] [place] [facility] [address] [id number] [place] [address] Mar, [facility] [place] [facility] [address] [id number] [place] [address] Mar, [facility] [address] [id number] [place] [address] Mar, [facility] [place] [facility] [address] [id number] [place] [address] Mar, [facility] [address] [id number] [place] [address] Mar, [facility] [address] [id number] [place] [address] Mar, [facility] [place] [facility] [address] [id number] [place] [address]- [address] Mar, [facility] [place] [facility] [address] [id number] [place] [address] Mar, [facility] [place] [facility] [address] [id number] [place] [address] Feb, [facility] [place] [facility] [address] [id number] [place] [address] Feb, [facility] [place] [facility] [address] [id number] [place] [address] Feb, [facility] [place] [facility] [address] [id number] [place] [address] Feb, [facility] [place] [facility] [address] [id number] [place] [address] Feb, [facility] [place] [facility] [address] [id number] [place] [address] Feb, [facility] [place] [facility] [address] [id number] [place] [address] Feb, [facility] [place] [facility] [address] [id number] [place] [address] Jan, [facility] [place] [facility] [address] [id number] [place] [address] 17 Jan, 2011 [facility] [place] [facility] [address] [id number] [place] [address] Jan, [facility] [place] [facility] [address] [id number] [place] [address] Nov, [facility] [place] [facility] [address] [id number] [place] [address] Mar, [facility] [place] [facility] [address] [id number] [place] [address] Mar, [facility] [place] [facility] [address] [id number] [place] [address]- [address] Mar, [facility] [place] [facility] [address] [id number] [place] [address]- [address] Mar, [facility] [place] [facility] [address] [id number] [place] [address] Mar, [facility] [place] [facility] [address] [id number] [place] [address]- [address] Feb, [facility] [place] [facility] [address] [id number] [place] [address] 30 Feb, 2010 [facility] [place] [facility] [address] [id number] [place] [address] Feb, [facility] [place] [facility] [address] [id number] [place] [address]- [address] Feb, [facility] [place] [facility] [address] [id number] [place] [address]- [address] Feb, [facility] [place] [facility] [address] [facility] [id number] [place] [address] 15 Feb, 2010 IMMUNIZATIONS No Known Immunizations [...] Mastectomy 02/01/2017 Hospitalization History surgeries Hospitalization History [facility] ED 10/06/2017
--- OUTSIDE RECORDS SUMMARY | 2017-12-22 04:08 | XMS REPORT ---
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 [address]- 3956 Jun, [facility] [place] [facility] [address] [id number] [place] [address]- 2391 Jun, [facility] [place] [facility] [address] [id number] [place] [address]- 0087 Jun, [facility] [place] [facility] [address] [id number] [place] [address]- 0326 Jun, [facility] [place] [facility] [address] [id number] [place] [address]- 1138 23 Jun, 2014 [facility] [place] [facility] [address] [id number] [place] [address]- 6223 23 Jun, 2014 [facility] [place] [facility] [address] [id number] [place] [address]- 5800 23 Jun, 2014 [facility] [place] [facility] [address] [id number] [place] [address]- 6494 23 Jun, 2014 [facility] [place] [facility] [address] [id number] [place] [address]- 3231 23 Jun, 2014 [facility] [place] [facility] [address] [id number] [place] [address]- 0377 19 Jun, 2014 [facility] [place] [facility] [address] [id number] [place] [address]- 6160 19 Jun, 2014 [facility] [place] [facility] [address] [id number] [place] [address]- 5234 19 Jun, 2014 [facility] [place] [facility] [address] [id number] [place] [address]- 0228 19 Jun, 2014 [facility] [place] [facility] [address] [id number] [place] [address]- 6851 18 Jun, 2014 [facility] [place] [facility] [address] [id number] [place] [address]- 9916 18 Jun, 2014 [facility] [place] [facility] [address] [id number] [place] [address]- 2139 18 Jun, 2014 [facility] [place] [facility] [address] [id number] [place] [address]- 5335 18 Jun, 2014 [facility] [place] [facility] [address] [id number] [place] [address]- 0460 17 Jun, 2014 [facility] [place] [facility] [address] [id number] [place] [address]- 4000 17 Jun, 2014 [facility] [place] [facility] [address] [id number] [place] [address]- 8049 17 Jun, 2014 [facility] [place] [facility] [address] [id number] [place] [address]- 0396 17 Jun, 2014 [facility] [place] [facility] [address] [id number] [place] [address]- 4612 13 Jun, 2014 [facility] [place] [facility] [address] [id number] [place] [address]- 9936 13 Jun, 2014 [facility] [place] [facility] [address] [id number] [place] [address]- 2754 12 Jun, 2014 [facility] [place] [facility] [address] [id number] [place] [address]- 5535 12 Jun, 2014 [facility] [place] [facility] [address] [id number] [place] [address]- 0328 10 Jun, 2014 [facility] [place] [facility] [address] [id number] [place] [address]- 7359 10 Jun, 2014 [facility] [place] [facility] [address] [id number] [place] [address]- 4236 10 Jun, 2014 [facility] [place] [facility] [address] [id number] [place] [address]- 9357 10 Jun, 2014 [facility] [place] [facility] [address] [id number] [place] [address]- 6625 Jun, [facility] [place] [facility] [address] [id number] [place] [address]- 1447 Jun, [facility] [place] [facility] [address] [id number] [place] [address]- 2036 05 Jun, 2014 [facility] [place] [facility] [address] [id number] [place] [address]- 1737 Jun, [facility] [place] [facility] [address] [id number] [place] [address]- 2560 Jun, [facility] [place] [facility] [address] [id number] [place] [address]- 4266 Jun, [facility] [place] [facility] [address] [id number] [place] 9355 May, [facility] [place] [facility] [address] [id number] [place] [address]- 4604 May, 2014 [facility] [place] [facility] [address] [facility] [id number] [place] [address]- 7313 May, 2014 [facility] [place] [facility] [address] [facility] [id number] [place] [address]- 0798 May, 2014 [facility] [place] [facility] [address] [facility] [id number] [place] [address]- 5910 May, 2014 [facility] [place] [facility] [address] [facility] [id number] [place] [address]- 3062 May, 2014 [facility] [place] [facility] [address] [facility] [id number] [place] [address]- 4596 May, 2014 [facility] [place] [facility] [address] [facility] [id number] [place] [address]- 4291 May, 2014 [facility] [place] [facility] [address] [facility] [id number] [place] [address]- 8642 May, 2014 [facility] [place] [facility] [address] [facility] [id number] [place] [address]- 3906 May, 2014 [facility] [place] [facility] [address] [facility] [id number] [place] [address]- 1058 May, 2014 [facility] [place] [facility] [address] [facility] [id number] [place] [address]- 4181 May, 2014 [facility] [place] [facility] [address] [facility] [id number], [place] [address]- 8199 May, 2014 [facility] [place] [facility] [address] [facility] [id number] [place] [address]- 2520 May, 2014 [facility] [place] [facility] [address] [facility] [id number] [place] [address]- 1256 May, 2014 [facility] [place] [facility] [address] [facility] [id number], [place] [address]- 6974 02 May, 2014 [facility] [place] [facility] [address] [id number] [place] [address]- 3067 Apr, [facility] [place] [facility] [address] [id number] [place] [address]- 2710 Apr, [facility] [place] [facility] [address] [id number] [place] [address]- 7143 Apr, [facility] [place] [facility] [address] [id number] [place] [address]- 7567 Apr, [facility] [place] [facility] [address] [id number] [place] [address]- 1758 Apr, [facility] [place] [facility] [address] [id number] [place] [address]- 2562 Apr, [facility] [place] [facility] [address] [id number] [place] [address]- 3921 Apr, [facility] [place] [facility] [address] [id number] [place] [address]- 7206 Apr, [facility] [place] [facility] [address] [id number] [place] [address]- 2737 Apr, [facility] [place] [facility] [address] [id number] [place] [address]- 8431 Apr, [facility] [place] [facility] [address] [id number] [place] [address]- 2021 Apr, [facility] [place] [facility] [address] [id number], [place] [address]- 1055 Apr, [facility] [place] [facility] [address] [id number] [place] [address]- 9836 Apr, [facility] [place] [facility] [address] [id number] [place] [address]- 1591 Apr, [facility] [place] [facility] [address] [id number] [place] [address]- 1907 Apr, [facility] [place] [facility] [address] [id number] [place] [address]- 8764 Mar, [facility] [place] [facility] [address] [id number] [place] [address]- 3947 Mar, [facility] [place] [facility] [address] [id number] [place] 0966 Mar, [facility] [place] [facility] [address] [id number] [place] [address]- 3176 Mar, [facility] [place] [facility] [address] [id number] [place] [address]- 4390 Mar, [facility] [place] [facility] [address] [id number] [place] [address]- 2738 Mar, [facility] [place] [facility] [address] [id number] [place] [address]- 3498 15 Mar, 2014 [facility] [place] [facility] [address] [id number] [place] [address]- 8396 15 Mar, 2014 [facility] [place] [facility] [address] [id number] [place] [address]- 6073 15 Mar, 2014 [facility] [place] [facility] [address] [id number] [place] [address]- 1156 Mar, [facility] [place] [facility] [address] [id number] [place] [address]- 6527 15 Mar, 2014 [facility] [place] [facility] [address] [id number] [place] [address]- 9436 Mar, [facility] [place] [facility] [address] [id number] [place] [address]- 9827 12 Mar, 2014 [facility] [place] [facility] [address] [id number] [place] [address]- 0642 Mar, [facility] [place] [facility] [address] [id number] [place] [address]- 8990 Mar, [facility] [place] [facility] [address] [id number] [place] [address]- 4785 Mar, [facility] [place] [facility] [address] [id number] [place] [address]- 7484 Mar, [facility] [place] [facility] [address] [id number] [place] 5800 Mar, [facility] [place] [facility] [address] [id number] [place] [address]- 2572 Feb, [facility] [place] [facility] [address] [id number] [place] [address]- 3506 Feb, [facility] [place] [facility] [address] [id number] [place] [address]- 8651 Feb, [facility] [place] [facility] [address] [id number] [place] [address]- 6251 Feb, [facility] [place] [facility] [address] [id number] [place] [address]- 0636 Feb, [facility] [place] [facility] [address] [id number] [place] [address]- 4893 Feb, [facility] [place] [facility] [address] [id number] [place] [address]- 2300 Feb, [facility] [place] [facility] [address] [id number] [place] [address]- 6463 Feb, [facility] [place] [facility] [address] [id number] [place] [address]- 9358 Jan, [facility] [place] [facility] [address] [id number] [place] [address]- 0394 Jan, [facility] [place] [facility] [address] [id number] [place] [address]- 0632 Jan, [facility] [place] [facility] [address] [id number] [place] [address]- 8764 Jan, [facility] [place] [facility] [address] [id number] [place] [address]- 9724 Jan, [facility] [place] [facility] [address] [id number] [place] 4582 Jan, [facility] [place] [facility] [address] [id number] [place] [address]- 5589 Jan, [facility] [place] [facility] [address] [id number] [place] [address]- 0920 Jan, [facility] [place] [facility] [address] [id number] [place] [address]- 7271 Jan, [facility] [place] [facility] [address] [id number] [place] [address]- 0740 Jan, [facility] [place] [facility] [address] [id number] [place] [address]- 6614 Jan, [facility] [place] [facility] [address] [id number] [place] [address]- 5628 Jan, [facility] [place] [facility] [address] [id number] [place] [address]- 4747 Jan, [facility] [place] [facility] [address] [id number] [place] [address] Jan, [facility] [place] [facility] [address] [id number] [place] [address] Jan, [facility] [place] [facility] [address] [id number], [place] [address] Jan, [facility] [place] [facility] [address] [id number], [place] [address] Jan, [facility] [place] [facility] [address] [id number], [place] [address] Jan, [facility] [place] [facility] [address] [id number] [place] [address] 29 Dec, 2013 [facility] [place] [facility] [address] [id number], [place] [address] 29 Dec, 2013 [facility] [place] [facility] [address] [id number], [place] [address] 26 Dec, 2013 [facility] [place] [facility] [address] [id number], [place] [address] 26 Sep, 2013 [facility] [place] [facility] [address] [id number] [place] [address] 26 Sep, 2013 [facility] [place] [facility] [address] [id number] [place] [address]- [address]26 26 Dec, 2013 [facility] [place] [facility] [address] [id number] [place] [address]- [address] 23 Dec, 2013 [facility] [place] [facility] [address] [id number] [place] [address]- [address] 23 Dec, 2013 [facility] [place] [facility] [address] [id number] [place] [address]- [address]65 22 Dec, 2013 [facility] [place] [facility] [address] [id number] [place] [address] 22 Dec, 2013 [facility] [place] [facility] [address] [id number] [place] [address] 16 Dec, 2013 [facility] [place] [facility] [address] [id number] [place] [address]- [address]35 16 Dec, 2013 [facility] [place] [facility] [address] [id number] [place] [address]- [address] 15 Dec, 2013 [facility] [place] [facility] [address] [id number] [place] [address]- [address] 15 Dec, 2013 [facility] [place] [facility] [address] [id number] [place] [address]- [address] 09 Dec, 2013 [facility] [place] [facility] [address] [id number], [place] [address] Dec, 2013 [facility] [place] [facility] [address] [id number] [place] [address]- [address] Dec, 2013 [facility] [place] [facility] [address] [id number] [place] [address] Nov, [facility] [place] [facility] [address] [id number] [place] [address]- [address] Nov, [facility] [place] [facility] [address] [id number] [place] [address] Nov, [facility] [place] [facility] [address] [id number] [place] [address] Nov, [facility] [place] [facility] [address] [id number] [place] [address]- [address] Nov, [facility] [place] [facility] [address] [id number] [place] [address] Nov, [facility] [place] [facility] [address] [id number] [place] [address]- [address] Nov, [facility] [place] [facility] [address] [id number] [place] [address]- [address]63 Nov, [facility] [place] [facility] [address] [id number] [place] [address]- 285[address] Nov, [facility] [place] [facility] [address] [id number] [place] [address]- 138[address] Nov, [facility] [place] [facility] [address] [id number] [place] [address]- [address] Nov, [facility] [place] [facility] [address] [id number] [place] [address]- [address] Nov, [facility] [place] [facility] [address] [id number] [place] [address]- 71[address] Nov, [facility] [place] [facility] [address] [id number] [place] [address] 2000 Nov, [facility] [place] [facility] [address] [id number] [place] [address] Nov, [facility] [place] [facility] [address] [id number] [place] [address]- [address] Nov, [facility] [place] [facility] [address] [id number] [place] [address]- [address] Nov, [facility] [place] [facility] [address] [id number] [place] [address]- [address] Nov, [facility] [place] [facility] [address] [id number] [place] [address]- [address] Nov, [facility] [place] [facility] [address] [id number] [place] [address]- 78[address] Nov, [facility] [place] [facility] [address] [id number] [place] [address]- 65[address] Nov, [facility] [place] [facility] [address] [id number] [place] [address]- [address] Oct, [facility] [place] [facility] [address] [id number] [place] [address]- [address] Oct, [facility] [place] [facility] [address] [id number] [place] [address]- 8510 Oct, [facility] [place] [facility] [address] [id number] [place] [address]- 1216 Oct, [facility] [place] [facility] [address] [id number] [place] [address]- [address]393 Oct, [facility] [place] [facility] [address] [id number] [place] [address]- [address] Oct, [facility] [place] [facility] [address] [id number] [place] [address]- 1334 Oct, [facility] [place] [facility] [address] [id number] [place] [address]- [address] Oct, [facility] [place] [facility] [address] [id number] [place] [address]- [address] Oct, [facility] [place] [facility] [address] [id number] [place] [address]- 1514 Oct, [facility] [place] [facility] [address] [id number] [place] [address]- 6[address] Oct, [facility] [place] [facility] [address] [id number] [place] [address]- [address] Oct, [facility] [place] [facility] [address] [id number] [place] [address]- [address] Oct, [facility] [place] [facility] [address] [id number] [place] [address]- 2620 Oct, [facility] [place] [facility] [address] [id number] [place] [address] Oct, [facility] [facility] [address] [id number] [place] [address] Sep, [facility] [place] [facility] [address] [id number] [place] [address] 1192 Sep, [facility] [place] [facility] [address] [id number] [place] [address] 5652 Sep, [facility] [place] [facility] [address] [id number] [place] [address]- 7287 Sep, [facility] [place] [facility] [address] [id number] [place] [address] 0442 Sep, [facility] [place] [facility] [address] [id number] [place] [address]- 8202 Sep, [facility] [place] [facility] [address] [id number] [place] [address]- 2913 Sep, [facility] [place] [facility] [address] [facility] [id number] [place] [address]- 3948 Sep, [facility] [place] [facility] [address] [id number] [place] [address]- 4928 Sep, [facility] [place] [facility] [address] [id number] [place] [address]- 3599 16 Sep, 2013 [facility] [place] [facility] [address] [id number] [place] [address] 5750 Sep, [facility] [place] [facility] [address] [id number] [place] [address]- 9698 Sep, [facility] [place] [facility] [address] [id number] [place] [address]- 5370 Sep, [facility] [place] [facility] [address] [id number] [place] [address]- 5888 Sep, [facility] [place] [facility] [address] [id number] [place] [address]- 2768 Sep, [facility] [place] [facility] [address] [id number] [place] [address]- 4309 Sep, [facility] [place] [facility] [address] [id number] [place] [address]- 2597 Sep, [facility] [place] [facility] [address] [id number] [place] [address]- 2758 Sep, [facility] [place] [facility] [address] [id number] [place] [address]- 9342 Sep, [facility] [place] [facility] [address] [id number] [place] [address]- 7839 Sep, [facility] [place] [facility] [address] [id number] [place] [address]- 6183 Sep, [facility] [place] [facility] [address] [id number] [place] [address]- 2171 Sep, [facility] [place] [facility] [address] [id number] [place] [address]- 0516 August, [facility] [address] [id number] [place] [address]- 1386 August, [facility] [place] [facility] [address] [id number] [place] [address]- 8310 August, [facility] [place] [facility] [address] [id number] [place] [address]- 7885 August, [facility] [place] [facility] [address] [id number] [place] [address]- 3796 August, [facility] [address] [id number] [place] [address]- 1689 August, [facility] [place] [facility] [address] [id number] [place] [address]- 2345 August, [facility] [address] [id number] [place] [address]- 2114 August, [facility] [place] [facility] [address] [id number] [place] [address] August, [facility] [place] [facility] [address] [id number] [place] [address]- 7935 August, [facility] [place] [facility] [address] [id number] [place] [address]- 1538 August, [facility] [place] [facility] [address] [id number] [place] [address]- 7673 August, [facility] [place] [facility] [address] [id number] [place] [address]- 2923 August, [facility] [place] [facility] [address] [id number] [place] [address]- 7165 August, [facility] [place] [facility] [address] [id number] [place] [address]- 9156 August, [facility] [place] [facility] [address] [id number] [place] [address]- 6641 August, [facility] [place] [facility] [address] [id number] [place] [address]- 6911 August, [facility] [address] [id number] [place] [address]- 4183 August, [facility] [place] [facility] [address] [id number] [place] [address]- 9371 Jul, [facility] [place] [facility] [address] [id number] [place] [address]- 1932 Jul, [facility] [address] [id number] [place] [address]- 1820 Jul, [facility] [address] [id number] [place] [address]- 3935 Jul, [facility] [address] [id number] [place] [address]- 2280 24 Jul, 2013 [facility] [address] [id number] [place] [address]- 8047 Jul, [facility] [address] [id number] [place] [address]- 2809 Jul, [facility] [address] [id number] [place] [address]- 6214 Jul, [facility] [address] [id number] [place] [address]- 1093 Jul, [facility] [address] [id number] [place] [address]- 3108 Jul, [facility] [address] [id number] [place] [address]- 3486 Jul, [facility] [address] [id number] [place] [address]- 3888 Jul, [facility] [address] [id number] [place] [address]- 8923 18 Jul, 2013 [facility] [address] [id number] [place] [address]- 5573 Jul, [facility] [address] [id number] [place] [address]- 8770 17 Jul, 2013 [facility] [address] [id number] [place] [address]- 6447 17 Jul, 2013 [facility] [address] [id number] [place] [address]- 3316 17 Jul, 2013 [facility] [address] [id number] [place] [address]- 5411 16 Jul, 2013 [facility] [address] [id number] [place] [address]- 1641 16 Jul, 2013 [facility] [address] [id number] [place] [address]- 4317 15 Jul, 2013 [facility] [address] [id number] [place] [address]- 2799 15 Jul, 2013 [facility] [address] [id number] [place] [address]- 9823 14 Jul, 2013 [facility] [address] [id number] [place] [address]- 7837 14 Jul, 2013 [facility] [address] [id number] [place] [address]- 1910 Jul, [facility] [address] [id number] [place] [address]- 8953 Jul, [facility] [address] [id number] [place] [address]- 0347 Jul, [facility] [address] [id number] [place] [address]- 1019 Jul, [facility] [address] [id number] [place] [address]- 0626 Jul, [facility] [address] [id number] [place] [address]- 1193 Jul, [facility] [address] [id number] [place] [address]- 4090 17 Jun, 2013 [facility] [address] [id number] [place] [address]- 5762 17 Jun, 2013 [facility] [address] [id number] [place] [address]- 9469 17 Jun, 2013 [facility] [address] [id number] [place] [address]- 2291 17 Jun, 2013 [facility] [address] [id number] [place] [address]- 2152 13 Jun, 2013 [facility] [address] [id number] [place] [address]- 7177 13 Jun, 2013 [facility] [address] [id number], [place] [address]- 2839 11 Jun, 2013 [facility] [address] [id number] [place] [address]- 8616 11 Jun, 2013 [facility] [address] [facility] [id number] [place] [address]- 8671 Jun, [facility] [address] [facility] [id number] [place] [address]- 9785 Jun, [facility] [address] [facility] [id number] [place] [address]- 7845 Jun, [facility] [address] [facility] [id number] [place] [address]- 7113 Jun, [facility] [address] [facility] [id number] [place] [address]- 9147 May, [facility] [address] [facility] [id number] [place] [address]- 5164 May, 2013 [facility] [address] [facility] [id number] [place] [address]- 3884 May, [facility] [address] [facility] [id number] [place] [address]- 5392 May, [facility] [address] [facility] [id number] [place] [address]- 4262 May, [facility] [address] [facility] [id number] [place] [address]- 9509 May, 2013 [facility] [address] [facility] [id number] [place] [address]- 0895 May, 2013 [facility] [address] [facility] [id number] [place] [address]- 4704 May, 2013 [facility] [address] [facility] [id number] [place] [address]- 6810 May, 2013 [facility] [address] [facility] [id number] [place] [address]- 6038 May, [facility] [address] [id number] [place] [address]- 0161 Apr, [facility] [address] [id number] [place] [address]- 0738 Apr, [facility] [address] [id number] [place] [address]- 7820 Apr, [facility] [address] [id number] [place] [address]- 4589 Apr, [facility] [address] [id number] [place] [address]- 6251 Apr, [facility] [address] [id number] [place] [address]- 2309 Apr, [facility] [address] [id number] [place] [address]- 9021 Apr, [facility] [address] [id number] [place] [address]- 3821 Apr, [facility] [address] [id number] [place] [address]- 7995 Apr, [facility] [address] [id number] [place] [address]- 0847 Apr, [facility] [address] [id number] [place] [address]- 1574 Mar, [facility] [address] [id number], [place] [address]- 6577 Mar, [facility] [address] [id number] [place] [address]- 7182 Mar, [facility] [address] [id number] [place] [address]- 0520 Mar, [facility] [address] [id number] [place] [address]- 7728 Mar, [facility] [place] [address] [id number] [place] [address]- 9423 Mar, [facility] [address] [id number] [place] [address]- 5341 Feb, [facility] [address] [id number] [place] [address]- 7741 Feb, [facility] [address] [id number] [place] [address]- 7409 Feb, [facility] [place] [address] [id number] [place] [address]- 3270 30 Jan, 2013 [facility] [address] [id number] [place] [address]321 Jan, [facility] [place] [facility] [address] [id number] [place] [address]- 1948 Jan, [facility] [place] [facility] [address] [id number] [place] [address]- 7095 Jan, [facility] [place] [address] [id number] [place] [address]- 5148 Jan, [facility] [place] [facility] [address] [id number] [place] [address]- 3632 Jan, [facility] [place] [facility] [address] [id number] [place] [address]- 1064 Jan, [facility] [place] [facility] [address] [id number] [place] [address]- 6577 Jan, [facility] [place] [facility] [address] [id number], [place] [address]- 0288 Jan, [facility] [facility] [address] [id number] [place] [address]- 5410 Jan, [facility] [place] [facility] [address] [id number] [place] [address]447 30 Dec, 2012 [facility] [facility] [address] [id number] [place] [address]- 9035 25 Dec, 2012 [facility] [place] [facility] [address] [id number] [place] [address]- 254 11 Dec, 2012 [facility] [place] [facility] [address] [id number] [place] [address]- 0856 09 Dec, 2012 [facility] [place] [facility] [address] [id number] [place] [address] 2546 05 Dec, 2012 [facility] [place] [facility] [address] [id number] [place] [address] 2542 Dec, [facility] [place] [facility] [address] [id number] [place] [address]- 8530 Nov, [facility] [place] [facility] [address] [id number] [place] [address]- 0256 Nov, [facility] [place] [facility] [address] [id number] [place] [address]- 5152 Nov, [facility] [place] [facility] [address] [id number] [place] [address]- 2946 Nov, [facility] [place] [facility] [address] [id number] [place] [address]- 9995 Nov, [facility] [place] [facility] [address] [id number] [place] [address]- 9907 Nov, [facility] [place] [facility] [address] [id number] [place] [address]- 9936 Nov, [facility] [place] [facility] [address] [id number] [place] [address]- 2548 Nov, [facility] [place] [facility] [address] [id number] [place] [address]- 2542 Nov, [facility] [place] [facility] [address] [id number] [place] [address]- 2549 Nov, [facility] [address] [id number] [place] [address]- 2542 Nov, [facility] [place] [facility] [address] [id number] [place] [address]- 0312 Nov, [facility] [address] [id number] [place] [address]- 7148 Oct, [facility] [place] [facility] [address] [id number] [place] [address]- 1096 Oct, [facility] [place] [facility] [address] [id number] [place] [address]- 7868 Oct, [facility] [place] [facility] [address] [id number] [place] [address]- 2773 Sep, [facility] [place] [facility] [address] [id number] [place] [address]- 1053 Sep, [facility] [place] [facility] [address] [id number] [place] [address]- 9659 Sep, [facility] [place] [facility] [address] [id number] [place] [address]- 7722 August, [facility] [place] [facility] [address] [id number] [place] [address]- 8867 August, [facility] [address] [id number] [place] [address]- 5869 August, [facility] [place] [facility] [address] [id number] [place] [address]- 4636 August, [facility] [place] [facility] [address] [id number] [place] [address]- 3656 August, [facility] [place] [facility] [address] [id number] [place] [address]- 2546 August, [facility] [place] [facility] [address] [id number] [place] [address]- 1721 Jul, [facility] [place] [facility] [address] [id number] [place] [address]- 8690 Jul, [facility] [place] [facility] [address] [id number] [place] [address]- 6497 Jul, [facility] [place] [facility] [address] [id number] [place] [address]- 4605 10 Jul, 2012 [facility] [address] [id number] [place] [address]- 0290 04 Jul, 2012 [facility] [address] [id number] [place] [address]- 4505 04 Jul, 2012 [facility] [address] [id number] [place] [address]- 7596 2012 [facility] [address] [id number] [place] [address]- 6918 20 Jun, 2012 [facility] [address] [id number] [place] [address]- 6741 18 Jun, 2012 [facility] [address] [id number] [place] [address]- 5331 14 Jun, 2012 [facility] [address] [id number] [place] [address]- 5747 Jun, [facility] [address] [id number] [place] [address]- 0366 May, [facility] [address] [id number] [place] [address]- 2310 May, [facility] [address] [id number] [place] [address]- 1404 May, [facility] [address] [id number] [place] [address]- 8832 May, [facility] [address] [id number] [place] [address]- 3298 Apr, [facility] [address] [id number] [place] [address]- 1731 Apr, [facility] [address] [id number] [place] [address]- 2546 Apr, [facility] [address] [id number] [place] [address]- 8791 Mar, [facility] [place] [facility] [address] [id number] [place] [address]- 8080 Mar, [facility] [place] [facility] [address] [id number] [place] [address]- 2406 Mar, [facility] [place] [facility] [address] [id number] [place] [address]- 1940 Mar, [facility] [place] [facility] [address] [id number] [place] [address]- 1778 Mar, [facility] [place] [facility] [address] [id number] [place] [address]- 9358 Mar, [facility] [place] [facility] [address] [id number] [place] [address]- 3685 Mar, [facility] [place] [facility] [address] [id number] [place] [address]- 3952 Mar, [facility] [place] [facility] [address] [id number] [place] [address]- 6574 Feb, [facility] [place] [facility] [address] [id number] [place] [address]- 6357 Feb, [facility] [place] [facility] [address] [id number] [place] [address]- 2281 Feb, [facility] [place] [facility] [address] [id number] [place] [address]- 6416 Feb, [facility] [place] [facility] [address] [id number], [place] [address]- 7158 Feb, [facility] [place] [facility] [address] [id number] [place] [address]- 9258 Feb, [facility] [place] [facility] [address] [id number] [place] [address]- 8971 Feb, [facility] [place] [facility] [address] [id number] [place] [address]- 9644 Feb, [facility] [place] [facility] [address] [id number] [place] [address]- 4817 Feb, [facility] [place] [facility] [address] [id number] [place] [address]- 8120 Feb, [facility] [place] [facility] [address] [id number] [place] [address]- 3115 Feb, [facility] [place] [facility] [address] [facility] [id number] [place] [address]- 0084 Feb, [facility] [place] [facility] [address] [id number] [place] [address]- 5694 Feb, [facility] [place] [facility] [address] [id number] [place] [address]- 9250 Feb, [facility] [place] [facility] [address] [id number] [place] [address]- 2983 Feb, [facility] [place] [facility] [address] [facility] [id number] [place] [address]- 7226 Feb, [facility] [place] [facility] [address] [id number] [place] [address] Feb, [facility] [place] [facility] [address] [id number] [place] [address] Feb, [facility] [place] [facility] [address] [facility] [id number] [place] [address] Jan, [facility] [place] [facility] [address] [id number] [place] [address] Jan, [facility] [place] [facility] [address] [id number], [place] [address] Jan, [facility] [place] [facility] [address] [id number] [place] [address] Jan, [facility] [place] [facility] [address] [facility] [id number] [place] [address] Jan, [facility] [place] [facility] [address] [facility] [id number], [place] [address] Jan, [facility] [place] [facility] [address] [id number] [place] [address] 18 Jan, 2012 [facility] [place] [facility] [address] [id number] [place] [address] 18 Jan, 2012 [facility] [place] [facility] [address] [id number] [place] [address] 15 Jan, 2012 [facility] [place] [facility] [address] [id number] [place] [address] 15 Jan, 2012 [facility] [place] [facility] [address] [id number] [place] [address] Jan, [facility] [place] [facility] [address] [id number] [place] [address]16 11 Jan, 2012 [facility] [place] [facility] [address] [id number] [place] [address] 1117 10 Jan, 2012 [facility] [place] [facility] [address] [id number] [place] [address]- [address] 09 Jan, 2012 [facility] [place] [facility] [address] [id number] [place] [address] 02 Jan, 2012 [facility] [place] [facility] [address] [id number] [place] [address]39 29 Dec, 2011 [facility] [place] [facility] [address] [id number] [place] [address] 28 Dec, 2011 [facility] [place] [facility] [address] [id number] [place] [address] 27 Dec, 2011 [facility] [place] [facility] [address] [id number] [place] [address]- [address]072 26 Dec, 2011 [facility] [place] [facility] [address] [id number] [place] [address] 9676 24 Nov, 2011 [facility] [place] [facility] [address] [id number] [place] [address]- 3945 23 Nov, 2011 [facility] [place] [facility] [address] [id number] [place] [address]074 Nov, [facility] [place] [facility] [address] [id number] [place] [address] Nov, [facility] [place] [facility] [address] [id number] [place] [address]28 Nov, [facility] [place] [facility] [address] [id number] [place] [address] Nov, [facility] [place] [facility] [address] [id number] [place] [address] Nov, [facility] [place] [facility] [address] [id number] [place] [address] 38[address] Nov, [facility] [place] [facility] [address] [id number] [place] [address] Nov, [facility] [place] [facility] [address] [id number] [place] [address] Nov, [facility] [place] [facility] [address] [id number] [place] [address] Nov, [facility] [place] [facility] [address] [id number] [place] [address]158 Oct, [facility] [place] [facility] [address] [id number] [place] [address] 4[address] Oct, [facility] [place] [facility] [address] [id number] [place] [address] Oct, [facility] [place] [facility] [address] [id number] [place] [address] 2446 Oct, [facility] [place] [facility] [address] [id number] [place] [address] Oct, [facility] [place] [facility] [address] [id number] [place] [address]- 66[address] Oct, [facility] [place] [facility] [address] [id number] [place] [address] 47[address] Oct, [facility] [place] [facility] [address] [id number] [place] [address] 69[address] Oct, [facility] [address] [id number] [place] [address] Sep, [facility] [address] [id number] [place] [address] Sep, [facility] [address] [id number] [place] [address] 3439 Sep, [facility] [address] [id number] [place] [address]696 Sep, [facility] [address] [id number] [place] [address]- [address] Sep, [facility] [address] [id number] [place] [address] 287[address] Sep, [facility] [address] [id number] [place] [address] 38[address] Sep, [facility] [address] [id number] [place] [address] August, [facility] [address] [id number] [place] [address]- 6599 August, [facility] [address] [id number] [place] [address]- 6864 August, [facility] [address] [id number] [place] [address]- 8364 August, [facility] [address] [id number] [place] [address]- 1273 August, [facility] [place] [facility] [address] [id number] [place] [address] August, [facility] [address] [id number] [place] [address]- 6198 August, [facility] [address] [id number] [place] [address] August, [facility] [place] [facility] [address] [id number] [place] [address]- 9475 28 Jul, 2011 [facility] [place] [facility] [address] [id number] [place] [address]- [address] 17 Jul, 2011 [facility] [place] [facility] [address] [id number] [place] [address]- 7686 13 Jul, 2011 [facility] [place] [facility] [address] [id number] [place] [address] Jul, [facility] [place] [facility] [address] [id number] [place] [address]- 5194 05 Jul, 2011 [facility] [place] [facility] [address] [id number] [place] [address]- 9885 28 Jun, 2011 [facility] [place] [facility] [address] [id number] [place] [address]- 2071 Jun, [facility] [place] [facility] [address] [id number] [place] [address]- 6317 Jun, [facility] [place] [facility] [address] [id number] [place] [address]- [address]18 Jun, [facility] [place] [facility] [address] [id number] [place] [address]- [address]255 Jun, [facility] [place] [facility] [address] [id number] [place] [address]- [address] Jun, [facility] [place] [facility] [address] [id number] [place] [address]- [address]578 Jun, [facility] [place] [facility] [address] [id number] [place] [address]- [id number] Jun, [facility] [place] [facility] [address] [id number] [place] [address] 06 Jun, 2011 [facility] [place] [facility] [address] [id number] [place] [address] 27 May, 2011 [facility] [place] [facility] [address] [id number] [place] [address] May, [facility] [address] [id number] [place] [address] May, [facility] [address] [id number] [place] [address] May, [facility] [address] [id number] [place] [address] May, [facility] [address] [id number] [place] [address] May, [facility] [address] [id number] [place] [address] May, [facility] [address] [id number] [place] [address] May, [facility] [address] [id number] [place] [place] [address] Apr, [facility] [address] [id number] [place] [address] Apr, [facility] [address] [id number] [place] [address] Apr, [facility] [address] [facility] [id number] [place] [address] Apr, [facility] [address] [id number] [place] [address] Apr, [facility] [address] [id number] [place] [address] Apr, [facility] [place] [facility] [address] [id number] [place] [address] Mar, [facility] [place] [facility] [address] [id number] [place] [address] 25[address] Mar, [facility] [address] [id number] [place] [address] Mar, [facility] [place] [facility] [address] [id number] [place] [address] 19 Mar, 2011 [facility] [place] [facility] [address] [id number] [place] [address] 15 Mar, 2011 [facility] [place] [facility] [address] [id number] [place] [address] Mar, [facility] [place] [facility] [address] [id number] [place] [address]- [address]17 Mar, [facility] [place] [facility] [address] [id number] [place] [address] Mar, [facility] [place] [facility] [address] [id number] [place] [address] Mar, [facility] [place] [facility] [address] [id number] [place] [address] Mar, [facility] [place] [facility] [address] [id number] [place] [address] 69[address] Mar, [facility] [place] [facility] [address] [id number] [place] [address] Mar, [facility] [place] [facility] [address] [id number] [place] [address] Mar, [facility] [place] [facility] [address] [id number] [place] [address] Feb, [facility] [place] [facility] [address] [id number], [place] [address] Feb, [facility] [place] [facility] [address] [id number] [place] [address] Feb, [facility] [place] [facility] [address] [id number] [place] [address] Feb, [facility] [place] [facility] [address] [id number], [place] [address] Feb, [facility] [place] [facility] [address] [id number], [place] [address] Feb, [facility] [place] [facility] [address] [id number] [place] [address]98 Feb, [facility] [place] [facility] [address] [id number] [place] [address] Jan, [facility] [place] [facility] [address] [id number] [place] [address] 17 Jan, 2011 [facility] [place] [facility] [address] [id number] [place] [address] Jan, [facility] [place] [facility] [address] [id number] [place] [address] 15 Nov, 2010 [facility] [place] [facility] [address] [id number] [place] [address] Mar, [facility] [place] [facility] [address] [id number] [place] [address]- [address] Mar, [facility] [place] [facility] [address] [id number] [place] [address] Mar, [facility] [place] [facility] [address] [id number] [place] [address]- [address] Mar, [facility] [place] [facility] [address] [id number] [place] [address]- [address] Mar, [facility] [place] [facility] [address] [id number], [place] [address] Feb, [facility] [place] [facility] [address] [id number] [place] [address] 30 Feb, 2010 [facility] [place] [facility] [address] [id number] [place] [address] 2545 Feb, [facility] [place] [facility] [address] [id number] [place] [address] Feb, [facility] [place] [facility] [address] [id number] [place] [address]- [address] Feb, [facility] [place] [facility] [address] [facility] [id number] [place] [id number] [address] 15 Feb, 2010 IMMUNIZATIONS No Known Immunizations SOCIAL HISTORY Never Assessed REASON FOR VISIT culture PLAN OF CARE VITAL SIGNS MEDICATIONS [...] Mastectomy 02/01/2017 Hospitalization History surgeries Hospitalization History [facility] ED 10/06/2017
--- OUTSIDE RECORDS SUMMARY | 2017-12-22 04:10 | XMS REPORT ---
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 [id number] [place] [address]- 8737 Jun, [facility] [place] [facility] [address] [id number] [place] [address]- 6330 Jun, [facility] [place] [facility] [address] [id number] [place] [address]- 0630 Jun, [facility] [place] [facility] [address] [id number] [place] [address]- 2870 Jun, [facility] [place] [facility] [address] [id number] [place] [address]- 1402 Jun, [facility] [place] [facility] [address] [id number] [place] [address]- 5553 Jun, [facility] [place] [facility] [address] [id number] [place] [address]- 8536 23 Jun, 2014 [facility] [place] [facility] [address] [id number] [place] [address]- 4774 23 Jun, 2014 [facility] [place] [facility] [address] [id number] [place] [address]- 3173 23 Jun, 2014 [facility] [place] [facility] [address] [id number] [place] [address]- 2803 23 Jun, 2014 [facility] [place] [facility] [address] [id number] [place] [address]- 6449 23 Jun, 2014 [facility] [place] [facility] [address] [id number] [place] [address]- 5432 19 Jun, 2014 [facility] [place] [facility] [address] [id number] [place] [address]- 5572 19 Jun, 2014 [facility] [place] [facility] [address] [id number] [place] [address]- 6258 19 Jun, 2014 [facility] [place] [facility] [address] [id number] [place] [address]- 6938 19 Jun, 2014 [facility] [place] [facility] [address] [id number] [place] [address]- 8086 18 Jun, 2014 [facility] [place] [facility] [address] [id number] [place] [address]- 2269 18 Jun, 2014 [facility] [place] [facility] [address] [id number] [place] [address]- 9572 18 Jun, 2014 [facility] [place] [facility] [address] [id number] [address]- 9019 18 Jun, 2014 [facility] [place] [facility] [address] [id number] [place] [address]- 1886 17 Jun, 2014 [facility] [place] [facility] [address] [id number] [place] [address]- 0557 17 Jun, 2014 [facility] [place] [facility] [address] [id number] [place] [address]- 0465 17 Jun, 2014 [facility] [place] [facility] [address] [id number] [place] [address]- 4476 17 Jun, 2014 [facility] [place] [facility] [address] [id number] [place] [address]- 3493 13 Jun, 2014 [facility] [place] [facility] [address] [id number] [place] [address]- 2237 13 Jun, 2014 [facility] [place] [facility] [address] [id number] [place] [address]- 8402 12 Jun, 2014 [facility] [place] [facility] [address] [id number] [place] [address]- 3311 12 Jun, 2014 [facility] [place] [facility] [address] [id number] [place] [address]- 7728 10 Jun, 2014 [facility] [place] [facility] [address] [id number] [place] [address]- 0397 10 Jun, 2014 [facility] [place] [facility] [address] [id number] [place] [address]- 2034 10 Jun, 2014 [facility] [place] [facility] [address] [id number] [place] [address]- 1734 10 Jun, 2014 [facility] [place] [facility] [address] [id number] [place] [address]- 7686 06 Jun, 2014 [facility] [place] [facility] [address] [id number] [place] [address]- 2809 06 Jun, 2014 [facility] [place] [facility] [address] [id number] [place] [address]- 9041 05 Jun, 2014 [facility] [place] [facility] [address] [id number] [place] [address]- 6024 Jun, [facility] [place] [facility] [address] [id number] [place] [address]- 4054 Jun, [facility] [place] [facility] [address] [id number] [place] [address]- 0173 Jun, [facility] [place] [facility] [address] [id number] [place] [address]- 3270 May, [facility] [place] [facility] [address] [id number] [place] [address]- 8742 May, 2014 [facility] [place] [facility] [address] [facility] [id number] [place] [address]- 5496 May, 2014 [facility] [place] [facility] [address] [facility] [id number] [place] [address]- 4251 May, 2014 [facility] [place] [facility] [address] [facility] [id number] [place] [address]- 5128 May, 2014 [facility] [place] [facility] [address] [facility] [id number] [place] [address]- 8439 May, 2014 [facility] [place] [facility] [address] [facility] [id number] [place] [address]- 7099 May, 2014 [facility] [place] [facility] [address] [facility] [id number] [place] [address]- 6703 May, 2014 [facility] [place] [facility] [address] [facility] [id number] [place] [address]- 4523 May, 2014 [facility] [place] [facility] [address] [facility] [id number] [place] [address]- 7146 May, 2014 [facility] [place] [facility] [address] [facility] [id number] [place] [address]- 3080 May, 2014 [facility] [place] [facility] [address] [facility] [id number] [place] [address]- 6188 May, 2014 [facility] [place] [facility] [address] [facility] [id number], [place] [address]- 8147 May, 2014 [facility] [place] [facility] [address] [facility] [id number] [place] [address]- 1815 May, 2014 [facility] [place] [facility] [address] [facility] [id number] [place] [address]- 1083 May, 2014 [facility] [place] [facility] [address] [facility] [id number] [place] [address]- 9502 May2014 [facility] [place] [facility] [address] [id number] [place] [address]- 6754 Apr, [facility] [place] [facility] [address] [id number] [place] [address]- 0211 Apr, [facility] [place] [facility] [address] [id number] [place] [address]- 5349 Apr, [facility] [place] [facility] [address] [id number] [place] [address]- 6490 Apr, [facility] [place] [facility] [address] [id number] [place] [address]- 0230 Apr, [facility] [place] [facility] [address] [id number] [place] [address]- 2779 Apr, [facility] [place] [facility] [address] [id number] [place] [address]- 1528 Apr, [facility] [place] [facility] [address] [id number] [place] [address]- 1601 Apr, [facility] [place] [facility] [address] [id number] [place] [address]- 2251 Apr, [facility] [place] [facility] [address] [id number] [place] [address]- 4715 Apr, [facility] [place] [facility] [address] [id number] [place] [address]- 6979 Apr, [facility] [place] [facility] [address] [id number] [place] [address]- 9524 Apr, [facility] [place] [facility] [address] [id number] [place] [address]- 3207 Apr, [facility] [place] [facility] [address] [id number] [place] [address]- 7469 Apr, [facility] [place] [facility] [address] [id number] [place] [address]- 1946 Apr, [facility] [place] [facility] [address] [id number] [place] [address]- 7670 Mar, [facility] [place] [facility] [address] [id number] [place] [address]- 9165 29 Mar, 2014 [facility] [place] [facility] [address] [id number] [place] [address]- 0216 Mar, [facility] [place] [facility] [address] [id number] [place] [address]- 0556 Mar, [facility] [place] [facility] [address] [id number] [place] [address]- 9650 Mar, [facility] [place] [facility] [address] [id number] [place] [address]- 7112 Mar, [facility] [place] [facility] [address] [id number] [place] [address]- 7132 Mar, [facility] [place] [facility] [address] [id number] [place] [address]- 8161 15 Mar, 2014 [facility] [place] [facility] [address] [id number] [place] [address]- 1658 15 Mar, 2014 [facility] [place] [facility] [address] [id number] [place] [address]- 6474 Mar, [facility] [place] [facility] [address] [id number] [place] [address]- 4862 15 Mar, 2014 [facility] [place] [facility] [address] [id number] [place] [address]- 2782 15 Mar, 2014 [facility] [place] [facility] [address] [id number] [place] [address]- 9389 12 Mar, 2014 [facility] [place] [facility] [address] [id number] [place] [address]- 7336 Mar, [facility] [place] [facility] [address] [id number] [place] [address]- 7744 Mar, [facility] [place] [facility] [address] [id number] [place] [address]- 7638 Mar, [facility] [place] [facility] [address] [id number] [place] [address]- 4715 Mar, [facility] [place] [facility] [address] [id number] [place] [address]- 7402 Mar, [facility] [place] [facility] [address] [id number] [place] [address]- 7459 Feb, [facility] [place] [facility] [address] [id number] [place] 7729 Feb, [facility] [place] [facility] [address] [id number] [place] [address]- 3541 Feb, [facility] [place] [facility] [address] [id number] [place] [address]- 9756 Feb, [facility] [place] [facility] [address] [id number] [place] [address]- 9265 Feb, [facility] [place] [facility] [address] [id number] [place] [address]- 9555 Feb, [facility] [place] [facility] [address] [id number] [place] [address]- 0729 Feb, [facility] [place] [facility] [address] [id number] [place] [address]- 4083 Feb, [facility] [place] [facility] [address] [id number] [place] [address]- 6381 Jan, [facility] [place] [facility] [address] [id number] [place] [address]- 8420 Jan, [facility] [place] [facility] [address] [id number] [place] [address]- 8013 Jan, [facility] [place] [facility] [address] [id number] [place] [address] Jan, [facility] [place] [facility] [address] [id number] [place] [address] Jan, [facility] [place] [facility] [address] [id number] [place] [address] Jan, [facility] [place] [facility] [address] [id number] [place] [address] Jan, [facility] [place] [facility] [address] [id number] [place] [address] Jan, [facility] [place] [facility] [address] [id number] [place] [address] Jan, [facility] [place] [facility] [address] [id number] [place] [address] Jan, [facility] [place] [facility] [address] [id number] [place] [address] 14[address] Jan, [facility] [place] [facility] [address] [id number] [place] [address] Jan, [facility] [place] [facility] [address] [id number] [place] [address] Jan, [facility] [place] [facility] [address] [id number] [place] [address] Jan, [facility] [place] [facility] [address] [id number] [place] [address] 49[address] Jan, [facility] [place] [facility] [address] [id number], [place] [address] 16 Jan, 2014 [facility] [place] [facility] [address] [id number], [place] [address] Jan, [facility] [place] [facility] [address] [id number], [place] [address] Jan, [facility] [place] [facility] [address] [id number] [place] [address]- [address]18 29 Dec, 2013 [facility] [place] [facility] [address] [id number] [place] [address]32 29 Dec, 2013 [facility] [place] [facility] [address] [id number], [place] [address] 26 Dec, 2013 [facility] [place] [facility] [address] [id number], [place] [address] 26 Dec, 2013 [facility] [place] [facility] [address] [id number] [place] [address] 2546 26 Dec, 2013 [facility] [place] [facility] [address] [id number] [place] [address] 2546 26 Dec, 2013 [facility] [place] [facility] [address] [id number] [place] [address]- [address]776 23 Dec, 2013 [facility] [place] [facility] [address] [id number] [place] [address] 2541 23 Dec, 2013 [facility] [place] [facility] [address] [id number] [place] [address]- [address]247 22 Dec, 2013 [facility] [place] [facility] [address] [id number] [place] [address] 22 Dec, 2013 [facility] [place] [facility] [address] [id number] [place] [address]- [address]156 16 Dec, 2013 [facility] [place] [facility] [address] [id number] [place] [address]- 3422 16 Dec, 2013 [facility] [place] [facility] [address] [id number] [place] [address] 3904 15 Dec, 2013 [facility] [place] [facility] [address] [id number] [place] [address]156 15 Dec, 2013 [facility] [place] [facility] [address] [id number] [place] [address]- [address]40 Dec, 2013 [facility] [place] [facility] [address] [id number] [place] [address]- 2547 Dec, 2013 [facility] [place] [facility] [address] [id number] [place] [address] 2547 Dec, [facility] [place] [facility] [address] [id number] [place] [address] Nov, [facility] [place] [facility] [address] [id number] [place] [address] 6914 Nov, [facility] [place] [facility] [address] [id number] [place] [address] 3980 Nov, [facility] [place] [facility] [address] [id number] [place] [address] Nov, [facility] [place] [facility] [address] [id number] [place] [address]24 Nov, [facility] [place] [facility] [address] [id number] [place] [address]- 8528 Nov, [facility] [place] [facility] [address] [id number] [place] [address] 9088 Nov, [facility] [place] [facility] [address] [id number] [place] [address]12 Nov, [facility] [place] [facility] [address] [id number] [place] [address]- 48[address] Nov, [facility] [place] [facility] [address] [id number] [place] [address]- 6293 Nov, [facility] [place] [facility] [address] [id number] [place] [address]- [address]57 Nov, [facility] [place] [facility] [address] [id number] [place] [address]- [address] Nov, [facility] [place] [facility] [address] [id number] [place] [address]- [address]197 Nov, [facility] [place] [facility] [address] [id number] [place] [address]- 9012 Nov, [facility] [place] [facility] [address] [id number] [place] [address]- [address]497 Nov, [facility] [place] [facility] [address] [id number] [place] [address]- 0067 Nov, [facility] [place] [facility] [address] [id number] [place] [address]- 3196 Nov, [facility] [place] [facility] [address] [id number] [place] [address]- 0571 Nov, [facility] [place] [facility] [address] [id number] [place] [address]- 9025 Nov, [facility] [place] [facility] [address] [id number] [place] [address]- 1268 Nov, [facility] [place] [facility] [address] [id number] [place] [address]- [address]265 Nov, [facility] [place] [facility] [address] [id number] [place] [address] Oct, [facility] [place] [facility] [address] [id number] [place] [address]142 Oct, [facility] [place] [facility] [address] [id number] [place] [address]- 1468 Oct, [facility] [place] [facility] [address] [id number] [place] [address]- 8143 Oct, [facility] [place] [facility] [address] [id number] [place] [address]- 4027 Oct, [facility] [place] [facility] [address] [id number] [place] [address]- 8041 Oct, [facility] [place] [facility] [address] [id number] [place] [address]- 9437 Oct, [facility] [place] [facility] [address] [id number] [place] [address]- 8644 Oct, [facility] [place] [facility] [address] [id number] [place] [address]- 0235 Oct, [facility] [place] [facility] [address] [id number] [place] [address]- 1358 Oct, [facility] [place] [facility] [address] [id number] [place] [address]- 7762 Oct, [facility] [place] [facility] [address] [id number] [place] [address] Oct, [facility] [place] [facility] [address] [id number] [place] [address] 47[address] Oct, [facility] [place] [facility] [address] [id number] [place] [address] 7228 Oct, [facility] [place] [facility] [address] [id number] [place] [address] 5557 Oct, [facility] [place] [facility] [address] [id number] [place] [address] 6378 Sep, [facility] [place] [facility] [address] [id number] [place] [address]- 7377 Sep, [facility] [place] [facility] [address] [id number] [place] [address]- 8942 Sep, [facility] [place] [facility] [address] [id number] [place] [address] 4553 Sep, [facility] [place] [facility] [address] [id number] [place] [address]- 4283 Sep, [facility] [place] [facility] [address] [id number] [place] [address] 7936 Sep, [facility] [place] [facility] [address] [id number] [place] [address]- 1627 Sep, [facility] [place] [facility] [address] [facility] [id number] [place] [address]- 9354 Sep, [facility] [place] [facility] [address] [id number] [place] [address]- 9431 17 Sep, 2013 [facility] [place] [facility] [address] [id number] [place] [address]- 5560 16 Sep, 2013 [facility] [place] [facility] [address] [id number] [place] [address] 4650 Sep, [facility] [place] [facility] [address] [id number] [place] [address]- 4429 Sep, [facility] [place] [facility] [address] [id number] [place] [address]- 5541 Sep, [facility] [place] [facility] [address] [id number] [place] [address]- 6419 Sep, [facility] [place] [facility] [address] [id number] [place] [address]- 2106 Sep, [facility] [place] [facility] [address] [id number] [place] [address] 3261 Sep, [facility] [place] [facility] [address] [id number] [place] [address]- 7880 Sep, [facility] [place] [facility] [address] [id number] [place] [address]- 2111 Sep, [facility] [place] [facility] [address] [id number] [place] [address]- 7480 Sep, [facility] [place] [facility] [address] [id number] [place] [address]- 8478 Sep, [facility] [place] [facility] [address] [id number] [place] [address]- 5692 Sep, [facility] [place] [facility] [address] [id number] [place] [address]- 6169 Sep, [facility] [place] [facility] [address] [id number] [place] [address]- 4897 August, [facility] [place] [facility] [address] [id number] [place] [address]- 2493 August, [facility] [place] [facility] [address] [id number] [place] [address]- 1390 August, [facility] [place] [facility] [address] [id number] [place] [address]- 3067 August, [facility] [place] [facility] [address] [id number] [place] [address]- 6668 August, [facility] [place] [facility] [address] [id number] [place] [address]- 9508 August, [facility] [place] [facility] [address] [id number] [place] [address]- 3396 August, [facility] [place] [facility] [address] [id number] [place] [address]- 6305 August, [facility] [place] [facility] [address] [id number] [place] [address]- 1823 August, [facility] [place] [facility] [address] [id number] [place] [address] August, [facility] [place] [facility] [address] [id number] [place] [address]- 8080 August, [facility] [place] [facility] [address] [id number] [place] [address]- 1297 August, [facility] [place] [facility] [address] [id number] [place] [address]- 5384 August, [facility] [place] [facility] [address] [id number] [place] [address]- 0359 August, [facility] [place] [facility] [address] [id number] [place] [address]- 9540 August, [facility] [place] [facility] [address] [id number] [place] [address]- 8945 August, [facility] [place] [facility] [address] [id number] [place] [address]- 4179 August, [facility] [place] [facility] [address] [id number] [place] [address]- 7060 August, [facility] [place] [facility] [address] [id number] [place] [address]- 6864 Jul, [facility] [place] [facility] [address] [id number] [place] [address]- 0848 Jul, [facility] [place] [facility] [address] [id number] [place] [address]- 4352 Jul, [facility] [place] [facility] [address] [id number] [place] [address]- 3647 Jul, [facility] [place] [facility] [address] [id number] [place] [address]- 1829 24 Jul, 2013 [facility] [address] [id number] [place] [address]- 8105 Jul, [facility] [place] [facility] [address] [id number] [place] [address]- 5143 22 Jul, 2013 [facility] [address] [id number] [place] [address]- 3711 Jul, [facility] [place] [facility] [address] [id number] [place] [address]- 3165 Jul, [facility] [address] [id number] [place] [address]- 9499 Jul, [facility] [address] [id number] [place] [address]- 1825 Jul, [facility] [address] [id number] [place] [address]- 6423 18 Jul, 2013 [facility] [address] [id number] [place] [address]- 7042 18 Jul, 2013 [facility] [place] [facility] [address] [id number] [place] [address]- 4680 17 Jul, 2013 [facility] [address] [id number] [place] [address]- 3093 17 Jul, 2013 [facility] [place] [facility] [address] [id number] [place] [address]- 6509 17 Jul, 2013 [facility] [place] [facility] [address] [id number] [place] [address]- 9620 17 Jul, 2013 [facility] [place] [facility] [address] [id number] [place] [address]- 6404 16 Jul, 2013 [facility] [place] [facility] [address] [id number] [place] [address]- 8448 16 Jul, 2013 [facility] [place] [facility] [address] [id number] [place] [address]- 6773 15 Jul, 2013 [facility] [place] [facility] [address] [id number] [place] [address]- 8328 15 Jul, 2013 [facility] [place] [facility] [address] [id number] [place] [address]- 7009 14 Jul, 2013 [facility] [place] [facility] [address] [id number] [place] [address]- 5362 14 Jul, 2013 [facility] [place] [facility] [address] [id number] [place] [address]- 1433 Jul, [facility] [place] [facility] [address] [id number] [place] [address]- 2652 Jul, [facility] [place] [facility] [address] [id number] [place] [address]- 9084 Jul, [facility] [place] [facility] [address] [id number] [place] [address]- 9686 Jul, [facility] [place] [facility] [address] [id number] [place] [address]- 8765 Jul, [facility] [place] [facility] [address] [id number] [place] [address]- 1836 Jul, [facility] [place] [facility] [address] [id number] [place] [address]- 0373 17 Jun, 2013 [facility] [place] [facility] [address] [id number] [place] [address]- 4438 17 Jun, 2013 [facility] [place] [facility] [address] [id number] [place] [address]- 2873 17 Jun, 2013 [facility] [place] [facility] [address] [id number] [place] [address]- 5444 17 Jun, 2013 [facility] [place] [facility] [address] [id number] [place] [address]- 5319 13 Jun, 2013 [facility] [place] [facility] [address] [id number] [place] 6732 13 Jun, 2013 [facility] [place] [facility] [address] [id number] [place] [address]- 2089 Jun, [facility] [place] [facility] [address] [id number] [place] [address]- 2838 Jun, [facility] [place] [facility] [address] [id number] [place] [address]- 6607 Jun, [facility] [place] [facility] [address] [facility] [id number] [place] [address]- 1464 Jun, [facility] [place] [facility] [address] [id number] [place] [address]- 6908 Jun, [facility] [place] [facility] [address] [id number] [place] [address]- 7702 Jun, [facility] [place] [facility] [address] [facility] [id number] [place] [address]- 7640 May, [facility] [place] [facility] [address] [facility] [id number] [place] [address]- 2020 May, [facility] [place] [facility] [address] [facility] [id number] [place] [address]- 6412 May, [facility] [place] [facility] [address] [facility] [id number] [place] [address]- 0433 May, 2013 [facility] [place] [facility] [address] [facility] [id number] [place] [address]- 3432 May, [facility] [place] [facility] [address] [facility] [id number] [place] [address]- 9116 May, 2013 [facility] [place] [facility] [address] [facility] [id number] [place] [address]- 2437 May, 2013 [facility] [place] [facility] [address] [facility] [id number] [place] [address]- 1085 May, 2013 [facility] [place] [facility] [address] [facility] [id number] [place] [address]- 0433 May, 2013 [facility] [place] [facility] [address] [facility] [id number] [place] [address]- 4990 May, [facility] [address] [id number] [place] [address]- 0452 Apr, [facility] [place] [facility] [address] [id number] [place] [address]- 1606 Apr, [facility] [place] [facility] [address] [id number] [place] [address]- 9906 Apr, [facility] [place] [facility] [address] [id number] [place] [address]- 4406 Apr, [facility] [place] [facility] [address] [id number] [place] [address]- 8579 Apr, [facility] [place] [facility] [address] [id number] [place] [address]- 2476 Apr, [facility] [place] [facility] [address] [id number] [place] [address]- 9926 Apr, [facility] [place] [facility] [address] [id number] [place] [address]- 0646 Apr, [facility] [place] [facility] [address] [id number] [place] [address]- 0121 Apr, [facility] [place] [facility] [address] [id number], [place] [address]- 2191 Apr, [facility] [place] [facility] [address] [id number], [place] [address]- 6956 Mar, [facility] [place] [facility] [address] [id number], [place] [address]- 8176 Mar, [facility] [place] [facility] [address] [id number] [place] [address]- 3896 Mar, [facility] [place] [facility] [address] [id number] [place] [address]- 3226 Mar, [facility] [place] [facility] [address] [id number] [place] [address]- 5666 Mar, [facility] [place] [facility] [address] [id number], [place] [address]- 6749 Mar, [facility] [place] [facility] [address] [id number] [place] [address]- 1856 Feb, [facility] [place] [facility] [address] [id number], [place] [address]- 9669 Feb, [facility] [place] [facility] [address] [facility] [id number] [place] [address]- 1416 Feb, [facility] [place] [facility] [address] [id number], [place] [address]- 8254 Jan, [facility] [place] [facility] [address] [id number] [place] [address]- 5842 Jan, [facility] [place] [facility] [address] [id number] [place] [address]- 8285 Jan, [facility] [place] [facility] [address] [id number], [place] [address]- 5657 Jan, [facility] [place] [facility] [address] [id number], [place] [address]- 4483 Jan, [facility] [place] [facility] [address] [facility] [id number], [place] [address]- 9522 Jan, [facility] [place] [facility] [address] [facility] [id number], [place] [address]- 1574 Jan, [facility] [place] [facility] [address] [id number], [place] [address]- 2066 Jan, [facility] [place] [facility] [address] [id number], [place] [address]- 0339 Jan, [facility] [place] [facility] [address] [id number] [address]908 Jan, [facility] [place] [facility] [address] [facility] [id number], [place] [address]- 6239 30 Dec, 2012 [facility] [place] [facility] [address] [id number], [place] [address]- 9098 25 Dec, 2012 [facility] [place] [facility] [address] [id number] [place] [address]- 2641 11 Dec, 2012 [facility] [place] [facility] [address] [id number] [place] [address]- 9696 09 Dec, 2012 [facility] [place] [facility] [address] [id number] [place] [address] 2546 05 Dec, 2012 [facility] [place] [facility] [address] [id number] [place] [address] 2546 Dec, [facility] [place] [facility] [address] [id number] [place] [address] 2544 Nov, [facility] [place] [facility] [address] [id number] [place] [address]- 8602 Nov, [facility] [place] [facility] [address] [id number] [place] [address]- 5859 Nov, [facility] [place] [facility] [address] [id number] [place] [address]- 1381 Nov, [facility] [place] [facility] [address] [id number] [place] [address]- 7873 Nov, [facility] [place] [facility] [address] [id number] [place] [address]- 8160 Nov, [facility] [place] [facility] [address] [id number] [place] [address]- 4992 Nov, [facility] [place] [facility] [address] [id number] [place] [address] 2541 Nov, [facility] [place] [facility] [address] [id number] [place] [address] 2545 Nov, [facility] [place] [facility] [address] [id number] [place] [address]- 2541 Nov, [facility] [place] [facility] [address] [id number] [place] [address]- 2548 Nov, [facility] [place] [facility] [address] [id number] [place] [address]- 4903 Nov, [facility] [address] [id number] [place] [address]- 3435 Oct, [facility] [place] [facility] [address] [id number] [place] [address]- 1764 Oct, [facility] [address] [id number] [place] [address]- 8434 Oct, [facility] [address] [id number] [place] [address]- 6815 Sep, [facility] [address] [id number] [place] [address]- 5062 Sep, [facility] [address] [id number] [place] [address]- 9697 Sep, [facility] [address] [id number] [place] [address]- 5961 August, [facility] [place] [facility] [address] [id number] [place] [address]- 7501 August, [facility] [address] [id number] [place] [address]- 0781 August, [facility] [place] [facility] [address] [id number] [place] [address]- 9262 August, [facility] [place] [facility] [address] [id number] [place] [address]- 0541 August, [facility] [place] [facility] [address] [id number] [place] [address]- 8648 August, [facility] [place] [facility] [address] [id number] [place] [address]- 2511 Jul, [facility] [place] [facility] [address] [id number] [place] [address]- 1634 Jul, [facility] [place] [facility] [address] [id number] [place] [address]- 2330 Jul, [facility] [place] [facility] [address] [id number] [place] [address]- 7202 10 Jul, 2012 [facility] [address] [id number] [place] [address]- 7592 04 Jul, 2012 [facility] [address] [id number] [place] [address]- 0332 04 Jul, 2012 [facility] [address] [id number] [place] [address]- 6655 2012 [facility] [address] [id number] [place] [address]- 7839 20 Jun, 2012 [facility] [address] [id number] [place] [address]- 1514 18 Jun, 2012 [facility] [address] [id number] [place] [address]- 6334 14 Jun, 2012 [facility] [address] [id number] [place] [address]- 6396 Jun, [facility] [address] [id number] [place] [address]- 8652 May, [facility] [address] [id number] [place] [address]- 3806 May, [facility] [address] [id number] [place] [address]- 5829 May, [facility] [address] [id number] [place] [address]- 1457 May, [facility] [address] [id number] [place] [address]- 7008 Apr, [facility] [address] [id number] [place] [address]- 4527 Apr, [facility] [address] [id number] [place] [address]- 3228 Apr, [facility] [address] [id number] [place] 0851 Mar, [facility] [place] [facility] [address] [id number] [place] [address]- 8647 Mar, [facility] [place] [facility] [address] [id number] [place] [address]- 2816 Mar, [facility] [place] [facility] [address] [id number] [place] [address]- 4144 Mar, [facility] [place] [facility] [address] [id number] [place] [address]- 9771 Mar, [facility] [place] [facility] [address] [id number] [place] [address]- 0787 Mar, [facility] [place] [facility] [address] [id number] [place] [address]- 3969 Mar, [facility] [place] [facility] [address] [id number] [place] [address]- 4785 Mar, [facility] [place] [facility] [address] [id number] [place] [address]- 8040 Feb, [facility] [place] [facility] [address] [id number] [place] [address]- 2939 Feb, [facility] [place] [facility] [address] [id number], [place] [address]- 2296 Feb, [facility] [place] [facility] [address] [id number], [place] [address]- 4314 Feb, [facility] [place] [facility] [address] [id number], [place] [address]- 6662 Feb, [facility] [place] [facility] [address] [id number] [place] [address] Feb, [facility] [place] [facility] [address] [id number], [place] [address] Feb, [facility] [place] [facility] [address] [id number], [place] [address] 7[address] Feb, [facility] [place] [facility] [address] [id number], [place] [address] 14[address] Feb, [facility] [place] [facility] [address] [id number] [place] [address] 4275 Feb, [facility] [place] [facility] [address] [facility] [id number], [place] [address] Feb, [facility] [place] [facility] [address] [facility] [id number] [place] [address]- 8034 Feb, [facility] [place] [facility] [address] [facility] [id number], [place] [address] 1777 Feb, [facility] [place] [facility] [address] [facility] [id number] [place] [address], [place] [address]- [address]125 Feb, [facility] [place] [facility] [address] [facility] [id number], [place] [address]- 6718 Feb, [facility] [place] [facility] [id number] [place] [address] Feb, [facility] [place] [facility] [address] [facility] [id number], [place] [address]- [address] Feb, [facility] [place] [facility] [address] [id number], [place] [address]70 Feb, [facility] [place] [facility] [address] [id number], [place] [address] 9[address] Jan, [facility] [place] [facility] [address] [facility] [id number], [place] [address]- 4095 Jan, [facility] [place] [facility] [address] [facility] [id number], [place] [address]- 3693 Jan, [facility] [place] [facility] [address] [facility] [id number], [place] [address] 8204 Jan, [facility] [place] [facility] [address] [facility] [id number], [place] [address]- [address] Jan, [facility] [place] [facility] [address] [id number], [place] [address]- 0047 Jan, [facility] [place] [facility] [address] [id number] [place] [address]- 2981 18 Jan, 2012 [facility] [place] [facility] [address] [id number] [place] [address]- 6639 18 Jan, 2012 [facility] [place] [facility] [address] [id number] [place] [address]- 1536 15 Jan, 2012 [facility] [place] [facility] [address] [id number] [place] [address]- 6354 15 Jan, 2012 [facility] [place] [facility] [address] [id number] [place] [address]- 0174 Jan, [facility] [place] [facility] [address] [id number] [place] [address]- 9540 11 Jan, 2012 [facility] [place] [facility] [address] [id number] [place] [address]- 4365 10 Jan, 2012 [facility] [place] [facility] [address] [id number] [place] [address]- 6756 09 Jan, 2012 [facility] [place] [facility] [address] [id number] [place] [address]- 8035 02 Jan, 2012 [facility] [place] [facility] [address] [id number] [place] [address]- 7178 29 Dec, 2011 [facility] [place] [facility] [address] [id number] [place] [address]- 9629 28 Dec, 2011 [facility] [place] [facility] [address] [id number] [place] [address]- 1066 27 Dec, 2011 [facility] [place] [facility] [address] [id number] [place] [address]- 2549 26 Dec, 2011 [facility] [place] [facility] [address] [id number] [place] [address]- 6330 24 Nov, 2011 [facility] [place] [facility] [address] [id number] [place] [address]- 1374 Nov, [facility] [place] [facility] [address] [id number] [place] [address]- 8739 Nov, [facility] [place] [facility] [address] [id number] [place] [address]- 7989 Nov, [facility] [place] [facility] [address] [id number] [place] [address]- 2277 Nov, [facility] [place] [facility] [address] [id number] [place] [address]- 6491 Nov, [facility] [place] [facility] [address] [id number] [place] [address]- 4974 Nov, [facility] [place] [facility] [address] [id number] [place] [address]- 3720 Nov, [facility] [place] [facility] [address] [id number] [place] [address]- 3473 Nov, [facility] [place] [facility] [address] [id number] [place] [address]- 6320 Nov, [facility] [place] [facility] [address] [id number] [place] [address]- 5273 Nov, [facility] [place] [facility] [address] [id number] [place] [address]- 6025 Oct, [facility] [place] [facility] [address] [id number] [place] [address]- 0308 Oct, [facility] [place] [facility] [address] [id number] [place] [address]- 4126 Oct, [facility] [place] [facility] [address] [id number] [place] [address]- 4120 Oct, [facility] [place] [facility] [address] [id number] [place] [address]- 6174 Oct, [facility] [place] [facility] [address] [id number] [place] [address]- 4788 Oct, [facility] [place] [facility] [address] [id number] [place] [address]- 4389 Oct, [facility] [place] [facility] [address] [id number] [place] [address]- 3340 Oct, [facility] [place] [facility] [address] [id number] [place] [address]- 8460 Sep, [facility] [place] [facility] [address] [id number] [place] [address]- 7430 Sep, [facility] [place] [facility] [address] [id number] [place] [address]- 7205 Sep, [facility] [place] [facility] [address] [id number] [place] [address]- 0720 Sep, [facility] [place] [facility] [address] [id number] [place] [address]- 9584 Sep, [facility] [place] [facility] [address] [id number] [place] [address]- 7481 Sep, [facility] [address] [id number] [place] [address]- 1245 Sep, [facility] [place] [facility] [address] [id number] [place] [address]- 9589 August, [facility] [place] [facility] [address] [id number] [place] [address]- 6035 August, [facility] [place] [facility] [address] [id number] [place] [address]- 5667 August, [facility] [place] [facility] [address] [id number] [place] [address]- 8833 August, [facility] [place] [facility] [address] [id number] [place] [address]- 5633 August, [facility] [place] [facility] [address] [id number] [place] [address]- 9965 August, [facility] [place] [facility] [address] [id number] [place] [address] August, [facility] [place] [facility] [address] [id number] [place] [address]- 5108 August, [facility] [place] [facility] [address] [id number] [place] [address]- 5765 28 Jul, 2011 [facility] [place] [facility] [address] [id number] [place] [address]- 9486 17 Jul, 2011 [facility] [place] [facility] [address] [id number] [place] [address]- 3566 13 Jul, 2011 [facility] [address] [id number] [place] [address]- 8776 Jul, [facility] [address] [id number] [place] [address]- 1469 05 Jul, 2011 [facility] [address] [id number] [place] [address]- 4140 Jun, [facility] [address] [id number] [place] [address]- 0780 Jun, [facility] [address] [id number] [place] [address]- 2598 Jun, [facility] [place] [facility] [address] [id number] [place] [address]- 0929 Jun, [facility] [address] [id number] [place] [address] Jun, [facility] [place] [facility] [address] [id number] [place] [address] Jun, [facility] [place] [facility] [address] [id number] [place] [address] Jun, [facility] [place] [facility] [address] [id number] [place] [address] Jun, [facility] [place] [facility] [address] [id number] [place] [address] Jun, [facility] [place] [facility] [address] [id number] [place] [address] May, [facility] [place] [facility] [address] [id number] [place] [address] May, [facility] [place] [facility] [address] [id number] [place] [address] May, [facility] [place] [facility] [address] [id number] [place] [address] May, [facility] [place] [facility] [address] [id number] [place] [address] May, [facility] [place] [facility] [address] [id number] [place] [address] May, [facility] [place] [facility] [address] [id number] [place] [address] May, [facility] [place] [facility] [address] [id number] [place] [address] May, [facility] [place] [facility] [address] [id number] [place] [address] Apr, [facility] [place] [facility] [address] [id number] [place] [address] Apr, [facility] [place] [facility] [address] [id number] [place] [address] Apr, [facility] [place] [facility] [address] [facility] [id number] [place] [address] Apr, [facility] [place] [facility] [address] [id number] [place] [address] Apr, [facility] [place] [facility] [address] [id number] [place] [address] Apr, [facility] [place] [facility] [address] [id number] [place] [address] Mar, [facility] [place] [facility] [address] [id number] [place] [address] Mar, [facility] [place] [facility] [address] [id number] [place] [address] Mar, [facility] [place] [facility] [address] [id number] [place] [address] Mar, [facility] [place] [facility] [address] [id number] [place] [address] Mar, [facility] [place] [facility] [address] [id number] [place] [address] Mar, [facility] [place] [facility] [address] [id number] [place] [address] Mar, [facility] [address] [id number] [place] [address] Mar, [facility] [place] [facility] [address] [id number] [place] [address] Mar, [facility] [address] [id number] [place] [address] Mar, [facility] [address] [id number] [place] [address] Mar, [facility] [place] [facility] [address] [id number] [place] [address] Mar, [facility] [place] [facility] [address] [id number] [place] [address] 1995 Mar, [facility] [place] [facility] [address] [id number] [place] [address] Feb, [facility] [place] [facility] [address] [id number] [place] [address] Feb, [facility] [place] [facility] [address] [id number] [place] [address] Feb, [facility] [place] [facility] [address] [id number] [place] [address] Feb, [facility] [place] [facility] [address] [id number] [place] [address] Feb, [facility] [place] [facility] [address] [id number] [place] [address] Feb, [facility] [place] [facility] [address] [id number] [place] [address] Feb, [facility] [place] [facility] [address] [id number] [place] [address] Jan, [facility] [place] [facility] [address] [id number] [place] [address] 17 Jan, 2011 [facility] [place] [facility] [address] [id number] [place] [address] Jan, [facility] [place] [facility] [address] [id number] [place] [address] Nov, [facility] [place] [facility] [address] [id number] [place] [address]- [address] Mar, [facility] [place] [facility] [address] [id number] [place] [address] Mar, [facility] [place] [facility] [address] [id number] [place] [address]- [address] Mar, [facility] [place] [facility] [address] [id number] [place] [address]- [address] Mar, [facility] [place] [facility] [address] [id number] [place] [address] Mar, [facility] [place] [facility] [address] [id number] [place] [address]- [address] Feb, [facility] [place] [facility] [address] [id number] [place] [address] 30 Feb, 2010 [facility] [place] [facility] [address] [id number] [place] [address] 254 Feb, [facility] [place] [facility] [address] [id number] [place] [address]- [address] Feb, [facility] [place] [facility] [address] [id number] [place] [address]- [address] Feb, [facility] [place] [facility] [address] [facility] [id number] [place] [id number] 15 Feb, 2010 IMMUNIZATIONS No Known Immunizations SOCIAL HISTORY Never Assessed REASON FOR VISIT requesting a returned call PLAN OF CARE VITAL SIGNS MEDICATIONS [...] Mastectomy 02/01/2017 Hospitalization History surgeries Hospitalization History [facility] ED 10/06/2017
--- OUTSIDE RECORDS SUMMARY | 2017-12-22 04:16 | XMS REPORT ---
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 [id number] [place] [address]- 5032 12 Jun, 2014 [facility] [place] [facility] [address] [id number] [place] [address]- 7518 10 Jun, 2014 [facility] [place] [facility] [address] [id number] [place] [address]- 6059 10 Jun, 2014 [facility] [place] [facility] [address] [id number] [place] [address]- 0513 10 Jun, 2014 [facility] [place] [facility] [address] [id number] [place] [address]- 9736 10 Jun, 2014 [facility] [place] [facility] [address] [id number] [place] [address]- 3269 06 Jun, 2014 [facility] [place] [facility] [address] [id number] [place] [address]- 3025 06 Jun, 2014 [facility] [place] [facility] [address] [id number] [place] [address]- 2648 05 Jun, 2014 [facility] [place] [facility] [address] [id number] [place] [address]- 5583 05 Jun, 2014 [facility] [place] [facility] [address] [id number] [place] [address]- 4546 02 Jun, 2014 [facility] [place] [facility] [address] [id number] [place] [address]- 0476 Jun, [facility] [place] [facility] [address] [id number] [place] [address]- 3018 May, 2014 [facility] [place] [facility] [address] [facility] [place] [place] [id number] [place] [address]- 8145 May, 2014 [facility] [place] [facility] [address] [facility] [place] [place] [id number] [place] [address]- 5378 May, 2014 [facility] [place] [facility] [address] [facility] [place] [place] [id number] [place] [address]- 4006 May, 2014 [facility] [place] [facility] [address] [facility] [place] [place] [id number] [place] [address]- 2012 May, 2014 [facility] [place] [facility] [address] [facility] [place] [id number] [place] [address]- 5157 May, 2014 [facility] [place] [facility] [address] [facility] [place] [id number] [place] [address]- 4370 May, 2014 [facility] [place] [facility] [address] [facility] [place] [place] [id number] [place] [address]- 0567 May, 2014 [facility] [place] [facility] [address] [facility] [place] [place] [id number] [place] [address]- 0245 May, 2014 [facility] [place] [facility] [address] [facility] [place] [id number] [place] [address]- 1260 May, 2014 [facility] [place] [facility] [address] [facility] [place] [place] [id number] [place] [address]- 2093 May, 2014 [facility] [place] [facility] [address] [facility] [place] [id number] [address]- 3306 May, 2014 [facility] [place] [facility] [address] [facility] [place] [place] [id number] [place] [address]- 1382 May, 2014 [facility] [place] [facility] [address] [facility] [place] [id number] [place] [address]- 9653 May, 2014 [facility] [place] [facility] [address] [facility] [id number] [address]- 0292 02 May, 2014 [facility] [place] [facility] [address] [id number] [place] [address]- 8914 May, [facility] [place] [facility] [address] [id number] [place] [address]- 2834 Apr, [facility] [place] [facility] [address] [id number] [place] [address]- 6318 Apr, [facility] [place] [facility] [address] [id number] [place] [address]- 0572 Apr, [facility] [place] [facility] [address] [id number] [place] [address]- 4239 Apr, [facility] [place] [facility] [address] [id number] [place] [address]- 6847 Apr, [facility] [place] [facility] [address] [id number] [place] [address]- 3218 Apr, [facility] [place] [facility] [address] [id number] [place] [address]- 6104 Apr, [facility] [place] [facility] [address] [id number] [place] [address]- 5264 Apr, [facility] [place] [facility] [address] [id number] [place] [address]- 5851 Apr, [facility] [place] [facility] [address] [id number] [place] [address]- 6717 Apr, [facility] [place] [facility] [address] [id number] [place] [address]- 7876 Apr, [facility] [place] [facility] [address] [id number] [place] [address]- 4692 Apr, [facility] [place] [facility] [address] [id number] [place] [address]- 0599 Apr, [facility] [place] [facility] [address] [id number] [place] [address]- 1535 Apr, [facility] [place] [facility] [address] [id number] [place] [address]- 4401 Apr, [facility] [place] [facility] [address] [id number] [place] [address]- 8071 Mar, [facility] [place] [facility] [address] [id number] [place] [address]- 9636 Mar, [facility] [place] [facility] [address] [id number] [place] [address]- 2181 Mar, [facility] [place] [facility] [address] [id number] [place] [address]- 8565 Mar, [facility] [place] [facility] [address] [id number] [place] [address]- 9817 Mar, [facility] [place] [facility] [address] [id number] [place] [address]- 2401 Mar, [facility] [place] [facility] [address] [id number] [place] [address]- 4446 Mar, [facility] [place] [facility] [address] [id number] [place] [address]- 7092 15 Mar, 2014 [facility] [place] [facility] [address] [id number] [place] [address]- 4896 Mar, [facility] [place] [facility] [address] [id number] [place] [address]- 9455 Mar, [facility] [place] [facility] [address] [id number] [place] [address]- 8842 Mar, [facility] [place] [facility] [address] [id number] [place] [address]- 3763 15 Mar, 2014 [facility] [place] [facility] [address] [id number] [place] [address]- 6596 Mar, [facility] [place] [facility] [address] [id number] [place] [address]- 9357 Mar, [facility] [place] [facility] [address] [id number] [place] [address]- 1015 Mar, [facility] [place] [facility] [address] [id number] [place] [address]- 0717 Mar, [facility] [place] [facility] [address] [id number] [place] [address]- 4076 Mar, [facility] [place] [facility] [address] [id number] [place] 6518 Mar, [facility] [place] [facility] [address] [id number] [place] 4886 Feb, [facility] [place] [facility] [address] [id number] [place] [address]- 1844 Feb, [facility] [place] [facility] [address] [id number] [place] [address]- 0162 Feb, [facility] [place] [facility] [address] [id number] [place] [address]- 7016 Feb, [facility] [place] [facility] [address] [id number] [place] [address]- 7747 Feb, [facility] [place] [facility] [address] [id number] [place] [address]- 1292 Feb, [facility] [place] [facility] [address] [id number] [place] [address]- 1757 Feb, [facility] [place] [facility] [address] [id number] [place] [address]- 1728 Feb, [facility] [place] [facility] [address] [id number] [place] [address]- 7954 Jan, [facility] [place] [facility] [address] [id number] [place] [address]- 0223 Jan, [facility] [place] [facility] [address] [id number] [place] [address]- 9439 Jan, [facility] [place] [facility] [address] [id number] [place] [address]- 7151 Jan, [facility] [place] [facility] [address] [id number] [place] [address]- 3528 Jan, [facility] [place] [facility] [address] [id number] [place] [address]- 5733 Jan, [facility] [place] [facility] [address] [id number] [place] [address]- 7085 Jan, [facility] [place] [facility] [address] [id number] [place] [address]- 0536 Jan, [facility] [place] [facility] [address] [id number] [place] [address]- 3597 Jan, [facility] [place] [facility] [address] [id number] [place] [address]- 0794 Jan, [facility] [place] [facility] [address] [id number] [place] [address]- 3294 Jan, [facility] [place] [facility] [address] [id number] [place] [address]- 8670 Jan, [facility] [place] [facility] [address] [id number] [place] [address]- 6952 Jan, [facility] [place] [facility] [address] [id number] [place] [address]- 3725 Jan, [facility] [place] [facility] [address] [id number] [place] [address] Jan, [facility] [place] [facility] [address] [id number] [place] [address] Jan, [facility] [place] [facility] [address] [id number], [place] [address] Jan, [facility] [place] [facility] [address] [id number] [place] [address] Jan, [facility] [place] [facility] [address] [id number] [place] [address] Dec, [facility] [place] [facility] [address] [id number] [place] [address] 29 Dec, 2013 [facility] [place] [facility] [address] [id number] [place] [address] 26 Sep, 2013 [facility] [place] [facility] [address] [id number] [place] [address]46 26 Sep, 2013 [facility] [place] [facility] [address] [id number] [place] [address]- [address] 26 Sep, 2013 [facility] [place] [facility] [address] [id number] [place] [address] 2546 26 Sep, 2013 [facility] [place] [facility] [address] [id number] [place] [address]- [address] 23 Sep, 2013 [facility] [place] [facility] [address] [id number] [place] [address] 23 Sep, 2013 [facility] [place] [facility] [address] [id number] [place] [address] 22 Dec, 2013 [facility] [place] [facility] [address] [id number] [place] [address]- 9224 22 Dec, 2013 [facility] [place] [facility] [address] [id number] [place] [address]- [address]44 16 Sep, 2013 [facility] [place] [facility] [address] [id number] [place] [address]269 16 Dec, 2013 [facility] [place] [facility] [address] [id number] [place] [address]127 15 Dec, 2013 [facility] [place] [facility] [address] [id number] [place] [address] 2548 15 Dec, 2013 [facility] [place] [facility] [address] [id number], [place] [address] 09 Dec, 2013 [facility] [place] [facility] [address] [id number] [place] [address]- [address]44 03 Dec, 2013 [facility] [place] [facility] [address] [id number] [place] [address]- [address] 03 Dec, 2013 [facility] [place] [facility] [address] [id number] [place] [address]- 5830 29 Nov, 2013 [facility] [place] [facility] [address] [id number] [place] [address]- [address] Nov, [facility] [place] [facility] [address] [id number] [place] [address] Nov, [facility] [place] [facility] [address] [id number] [place] [address] 2938 Nov, [facility] [place] [facility] [address] [id number] [place] [address]101 Nov, [facility] [place] [facility] [address] [id number] [place] [address]- [address] Nov, [facility] [place] [facility] [address] [id number] [place] [address]- 6521 Nov, [facility] [place] [facility] [address] [id number] [place] [address] Nov, [facility] [place] [facility] [address] [id number] [place] [address] 24[address] Nov, [facility] [place] [facility] [address] [id number] [place] [address]- [address] Nov, [facility] [place] [facility] [address] [id number] [place] [address]- [address]77 Nov, [facility] [place] [facility] [address] [id number] [place] [address] 9275 Nov, [facility] [place] [facility] [address] [id number] [place] [address] 8446 Nov, [facility] [place] [facility] [address] [id number] [place] [address]- 8567 Nov, [facility] [place] [facility] [address] [id number] [place] [address]556 Nov, [facility] [place] [facility] [address] [id number] [place] [address]- [address] Nov, [facility] [place] [facility] [address] [id number] [place] [address]- 8860 Nov, [facility] [place] [facility] [address] [id number] [place] [address]- 3568 Nov, [facility] [place] [facility] [address] [id number] [place] [address]- 0936 Nov, [facility] [place] [facility] [address] [id number] [place] [address]- 6863 Nov, [facility] [place] [facility] [address] [id number] [place] [address]- [address]65 Nov, [facility] [place] [facility] [address] [id number] [place] [address]- 9161 Oct, [facility] [place] [facility] [address] [id number] [place] [address] 97[address] Oct, [facility] [place] [facility] [address] [id number] [place] [address]- 9735 Oct, [facility] [place] [facility] [address] [id number] [place] [address]- 9899 Oct, [facility] [place] [facility] [address] [id number] [place] [address]- 3988 Oct, [facility] [place] [facility] [address] [id number] [place] [address]- 5676 Oct, [facility] [place] [facility] [address] [id number] [place] [address]- 1883 Oct, [facility] [place] [facility] [address] [id number] [place] [address]- 8450 Oct, [facility] [place] [facility] [address] [id number] [place] [address]- 4626 Oct, [facility] [place] [facility] [address] [id number] [place] [address]- 9565 Oct, [facility] [place] [facility] [address] [id number] [place] [address]- [address]371 Oct, [facility] [place] [facility] [address] [id number] [place] [address]- 3666 Oct, [facility] [place] [facility] [address] [id number] [place] [address]- 0735 Oct, [facility] [place] [facility] [address] [id number] [place] [address]- 3570 Oct, [facility] [place] [facility] [address] [id number] [place] [address] 4931 Oct, [facility] [place] [facility] [address] [id number] [place] [address]- 4104 Sep, [facility] [place] [facility] [address] [id number] [place] [address]- 0491 Sep, [facility] [place] [facility] [address] [id number] [place] [address]- 8691 Sep, [facility] [place] [facility] [address] [id number] [place] [address]- [address] Sep, [facility] [place] [facility] [address] [id number] [place] [address] Sep, [facility] [place] [facility] [address] [id number] [place] [address] 0814 Sep, [facility] [place] [facility] [address] [id number] [place] [address] Sep, [facility] [place] [facility] [address] [id number] [place] [address] 1162 Sep, [facility] [place] [facility] [address] [id number] [place] [address] 17 Sep, 2013 [facility] [place] [facility] [address] [id number] [place] [address]- 4059 Sep, [facility] [place] [facility] [address] [id number] [place] [address]- 2181 Sep, [facility] [place] [facility] [address] [id number] [place] [address]- 2188 Sep, [facility] [place] [facility] [address] [id number] [place] [address] 8280 Sep, [facility] [place] [facility] [address] [id number] [place] [address] 2646 Sep, [facility] [place] [facility] [address] [id number] [place] [address]- [address]61 Sep, [facility] [place] [facility] [address] [id number] [place] [address]- 5347 Sep, [facility] [place] [facility] [address] [id number] [place] [address]- 8542 Sep, [facility] [place] [facility] [address] [id number] [place] [address]- 0973 Sep, [facility] [place] [facility] [address] [id number] [place] [address]- 7583 Sep, [facility] [place] [facility] [address] [id number] [place] [address]- 2298 Sep, [facility] [place] [facility] [address] [id number] [place] [address]- 3182 Sep, [facility] [place] [facility] [address] [id number] [place] [address]- 0655 Sep, [facility] [place] [facility] [address] [id number] [place] [address]- 5173 August, [facility] [place] [facility] [address] [id number] [place] [address]- 3842 August, [facility] [place] [facility] [address] [id number] [place] [address]- 3907 August, [facility] [place] [facility] [address] [id number] [place] [address]- 0059 August, [facility] [place] [facility] [address] [id number] [place] [address]- 1447 August, [facility] [place] [facility] [address] [id number] [place] [address]- 9140 August, [facility] [place] [facility] [address] [id number] [place] [address]- 1574 August, [facility] [place] [facility] [address] [id number] [place] [address] August, [facility] [place] [facility] [address] [id number] [place] [address]- 2732 August, [facility] [place] [facility] [address] [id number] [place] [address]- 0099 August, [facility] [place] [facility] [address] [id number] [place] [address]- 5398 August, [facility] [place] [facility] [address] [id number] [place] [address]- 4333 August, [facility] [place] [facility] [address] [id number] [place] [address]- 1224 August, [facility] [place] [facility] [address] [id number] [place] [address]- 7801 August, [facility] [place] [facility] [address] [id number] [place] [address]- 1700 August, [facility] [place] [facility] [address] [id number] [place] [address]- 1497 August, [facility] [place] [facility] [address] [id number] [place] [address]- 6592 August, [facility] [place] [facility] [address] [id number] [place] [address]- 4639 August, [facility] [place] [facility] [address] [id number] [place] [address]- 1498 Jul, [facility] [place] [facility] [address] [id number] [place] [address]- 1282 Jul, [facility] [place] [facility] [address] [id number] [place] [address]- 7034 Jul, [facility] [place] [facility] [address] [id number] [place] [address]- 8793 25 Jul, 2013 [facility] [address] [id number] [place] [address]- 8995 24 Jul, 2013 [facility] [place] [facility] [address] [id number] [place] [address]- 9598 Jul, [facility] [address] [id number] [place] [address]- 9848 Jul, [facility] [place] [facility] [address] [id number] [place] [address]- 2224 Jul, [facility] [address] [id number] [place] [address]- 7998 Jul, [facility] [address] [id number] [place] [address]- 6933 Jul, [facility] [address] [id number] [place] [address]- 8618 Jul, [facility] [address] [id number] [place] [address]- 9113 Jul, [facility] [place] [facility] [address] [id number] [place] [address]- 9245 Jul, [facility] [address] [id number] [place] [address]- 0398 Jul, [facility] [place] [facility] [address] [id number] [place] [address]- 5333 Jul, [facility] [place] [facility] [address] [id number] [place] [address]- 7393 Jul, [facility] [place] [facility] [address] [id number] [place] [address]- 1904 Jul, [facility] [place] [facility] [address] [id number] [place] [address]- 4230 16 Jul, 2013 [facility] [place] [facility] [address] [id number] [place] [address]- 1800 16 Jul, 2013 [facility] [place] [facility] [address] [id number] [place] [address]- 5692 15 Jul, 2013 [facility] [place] [facility] [address] [id number] [place] [address]- 1636 15 Jul, 2013 [facility] [place] [facility] [address] [id number] [place] [address]- 5691 14 Jul, 2013 [facility] [place] [facility] [address] [id number] [place] [address]- 1776 14 Jul, 2013 [facility] [place] [facility] [address] [id number] [place] [address]- 0517 Jul, [facility] [place] [facility] [address] [id number] [place] [address]- 1882 Jul, [facility] [place] [facility] [address] [id number] [place] [address]- 0728 Jul, [facility] [place] [facility] [address] [id number] [place] [address]- 6699 Jul, [facility] [place] [facility] [address] [id number] [place] [address]- 7411 Jul, [facility] [place] [facility] [address] [id number] [place] [address]- 5386 Jul, [facility] [place] [facility] [address] [id number] [place] [address]- 8119 17 Jun, 2013 [facility] [place] [facility] [address] [id number] [place] [address]- 0006 17 Jun, 2013 [facility] [place] [facility] [address] [id number] [place] [address]- 6939 17 Jun, 2013 [facility] [place] [facility] [address] [id number] [place] [address]- 0172 17 Jun, 2013 [facility] [place] [facility] [address] [id number] [place] [address]- 9856 13 Jun, 2013 [facility] [place] [facility] [address] [id number] [place] [address]- 4232 13 Jun, 2013 [facility] [place] [facility] [address] [id number] [place] [address]- 3323 11 Jun, 2013 [facility] [place] [facility] [address] [id number] [place] [address]- 6625 11 Jun, 2013 [facility] [place] [facility] [address] [id number] [place] [address]- 0766 10 Jun, 2013 [facility] [place] [facility] [address] [id number] [place] [address]- 3134 10 Jun, 2013 [facility] [place] [facility] [address] [id number] [place] [address]- 5537 04 Jun, 2013 [facility] [place] [facility] [address] [id number] [place] [address]- 2144 04 Jun, 2013 [facility] [place] [facility] [address] [id number] [place] [address]- 4367 28 May, 2013 [facility] [place] [facility] [address] [id number] [place] [address]- 2947 28 May, 2013 [facility] [place] [facility] [address] [facility] [id number] [place] [address]- 3797 07 May, 2013 [facility] [place] [facility] [address] [facility] [id number] [place] [address]- 0259 07 May, 2013 [facility] [place] [facility] [address] [facility] [place] [id number] [place] [address]- 7456 05 May, 2013 [facility] [place] [facility] [address] [facility] [id number] [place] [address]- 1375 05 May, 2013 [facility] [place] [facility] [address] [id number] [place] [address]- 9886 04 May, 2013 [facility] [place] [facility] [address] [facility] [place] [id number] [place] [address]- 6843 04 May, 2013 [facility] [place] [facility] [address] [facility] [id number] [place] [address]- 7553 May, [facility] [place] [facility] [address] [id number] [place] [address]- 0028 May, [facility] [place] [facility] [address] [id number] [place] [address]- 7029 Apr, [facility] [place] [facility] [address] [id number] [place] [address]- 9423 Apr, [facility] [place] [facility] [address] [id number] [place] [address]- 0148 Apr, [facility] [place] [facility] [address] [id number] [place] [address]- 1950 Apr, [facility] [place] [facility] [address] [id number] [place] [address]- 4172 Apr, [facility] [place] [facility] [address] [id number] [place] [address]- 1710 Apr, [facility] [place] [facility] [address] [id number] [place] [address]- 9422 Apr, [facility] [place] [facility] [address] [id number] [place] [address]- 1842 Apr, [facility] [place] [facility] [address] [id number] [place] [address]- 5675 Apr, [facility] [place] [facility] [address] [id number] [place] [address]- 0692 Apr, [facility] [place] [facility] [address] [id number], [place] [address]- 0509 Mar, [facility] [place] [facility] [address] [id number] [place] [address]- 3595 Mar, [facility] [place] [facility] [address] [id number] [place] [address]- 6501 Mar, [facility] [place] [facility] [address] [id number] [place] [address]- 2273 Mar, [facility] [place] [facility] [address] [id number] [place] [address] Mar, [facility] [place] [facility] [address] [id number] [place] [address]- 1884 Mar, [facility] [place] [facility] [address] [id number] [place] [address]607 Feb, [facility] [place] [facility] [address] [id number] [place] [address]- 9524 Feb, [facility] [place] [facility] [address] [id number] [place] [address]- 3378 Feb, [facility] [place] [facility] [address] [id number] [place] [address]192 Jan, [facility] [place] [facility] [address] [id number] [place] [address]- 9049 Jan, [facility] [place] [facility] [address] [id number] [place] [address]- 2565 Jan, [facility] [place] [facility] [address] [id number] [place] [address]- 6241 Jan, [facility] [place] [facility] [address] [id number] [place] [address]- 4146 Jan, [facility] [place] [facility] [address] [id number] [place] [address]- 0742 Jan, [facility] [place] [facility] [address] [id number] [place] [address]- 6534 Jan, [facility] [place] [facility] [address] [id number] [place] [address]- 1326 Jan, [facility] [place] [facility] [address] [id number] [place] [address]- 5633 04 Jan, 2013 [facility] [place] [facility] [address] [id number] [place] [address]199 Jan, [facility] [place] [facility] [address] [id number] [place] [address]- 0481 30 Dec, 2012 [facility] [place] [facility] [address] [id number] [place] [address]- 6575 25 Dec, 2012 [facility] [place] [facility] [address] [id number] [place] [address]- 2111 11 Dec, 2012 [facility] [place] [facility] [address] [id number] [place] [address]- 2547 09 Dec, 2012 [facility] [place] [facility] [address] [id number] [place] [address]- 2569 05 Dec, 2012 [facility] [place] [facility] [address] [id number] [place] [address]- 5040 04 Dec, 2012 [facility] [place] [facility] [address] [id number] [place] [address]- 8661 Nov, [facility] [place] [facility] [address] [id number] [place] [address]- 9704 Nov, [facility] [place] [facility] [address] [id number] [place] [address]- 1540 Nov, [facility] [place] [facility] [address] [id number] [place] [address]- 2722 Nov, [facility] [place] [facility] [address] [id number] [place] [address]- 3795 Nov, [facility] [place] [facility] [address] [id number] [place] [address]- 0775 Nov, [facility] [place] [facility] [address] [id number] [place] [address]- 7606 Nov, [facility] [place] [facility] [address] [id number] [place] [address] 2545 Nov, [facility] [place] [facility] [address] [id number] [place] [address]- 2545 Nov, [facility] [place] [facility] [address] [id number] [place] [address]- 0170 Nov, [facility] [place] [facility] [address] [id number] [place] [address]- 0536 Nov, [facility] [address] [id number] [place] [address]- 2810 Nov, [facility] [place] [facility] [address] [id number] [place] [address]- 0369 Oct, [facility] [place] [facility] [address] [id number] [place] [address]- 8657 Oct, [facility] [place] [facility] [address] [id number] [place] [address]- 3532 Oct, [facility] [address] [id number] [place] [address]- 5336 Sep, [facility] [place] [facility] [address] [id number] [place] [address]- 0534 Sep, [facility] [address] [id number] [place] [address]- 4600 Sep, [facility] [place] [facility] [address] [id number] [place] [address]- 6715 August, [facility] [address] [id number] [place] [address]- 0801 August, [facility] [place] [facility] [address] [id number] [place] [address]- 1483 August, [facility] [place] [facility] [address] [id number] [place] [address]- 4041 August, [facility] [place] [facility] [address] [id number] [place] [address]- 5648 August, [facility] [place] [facility] [address] [id number] [place] [address]- 9486 August, [facility] [place] [facility] [address] [id number] [place] [address]- 6273 Jul, [facility] [place] [facility] [address] [id number] [place] [address]- 3428 Jul, [facility] [place] [facility] [address] [id number] [place] [address]- 8835 11 Jul, 2012 [facility] [address] [id number] [place] [address]- 4350 10 Jul, 2012 [facility] [address] [id number] [place] [address]- 3716 04 Jul, 2012 [facility] [address] [id number] [place] [address]- 6960 04 Jul, 2012 [facility] [address] [id number] [place] [address]- 2422 2012 [facility] [address] [id number] [place] [address]- 1033 20 Jun, 2012 [facility] [address] [id number] [place] [address]- 2281 18 Jun, 2012 [facility] [address] [id number] [place] [address]- 7654 14 Jun, 2012 [facility] [address] [id number] [place] [address]- 9905 04 Jun, 2012 [facility] [address] [id number] [place] [address]- 4373 13 May, 2012 [facility] [address] [id number] [place] [address]- 7255 12 May, 2012 [facility] [address] [id number] [place] [address]- 5301 May, [facility] [address] [id number] [place] [address]- 8468 08 May, 2012 [facility] [address] [id number] [place] [address]- 1526 17 Apr, 2012 [facility] [address] [id number] [place] [address]- 1376 Apr, [facility] [address] [id number] [place] [address]- 1883 Apr, [facility] [place] [facility] [address] [id number] [place] [address]- 7705 Mar, [facility] [place] [facility] [address] [id number] [place] [address]- 2242 Mar, [facility] [place] [facility] [address] [id number] [place] [address]- 6164 Mar, [facility] [place] [facility] [address] [id number] [place] [address]- 5727 Mar, [facility] [place] [facility] [address] [id number] [place] [address]- 7447 Mar, [facility] [place] [facility] [address] [id number] [place] [address]- 7913 Mar, [facility] [place] [facility] [address] [id number] [place] [address]- 9088 Mar, [facility] [place] [facility] [address] [id number] [place] [address]- 7603 Mar, [facility] [place] [facility] [address] [id number] [place] [address]- 2635 Feb, [facility] [place] [facility] [address] [id number] [place] [address]- 6845 Feb, [facility] [place] [facility] [address] [id number], [place] [address]- 7449 Feb, [facility] [place] [facility] [address] [id number], [place] [address]- 8099 Feb, [facility] [place] [facility] [address] [id number] [place] [address]- 1553 Feb, [facility] [place] [facility] [address] [id number] [place] [address]- 3075 Feb, [facility] [place] [facility] [address] [id number] [place] [address]- 9705 Feb, [facility] [place] [facility] [address] [id number] [place] [address]- 6786 Feb, [facility] [place] [facility] [address] [id number] [place] [address]- 2815 Feb, [facility] [place] [facility] [address] [id number] [place] [address]- 2544 Feb, [facility] [place] [facility] [address] [id number] [place] [address]- 6357 Feb, [facility] [place] [facility] [address] [id number] [place] [address]- 5584 Feb, [facility] [place] [facility] [address] [id number] [place] [address] Feb, [facility] [place] [facility] [address] [id number] [place] [address] Feb, [facility] [place] [facility] [address] [id number] [place] [address] Feb, [facility] [place] [facility] [address] [id number] [place] [address] Feb, [facility] [place] [facility] [address] [id number] [place] [address] Feb, [facility] [place] [facility] [address] [facility] [place] [id number] [place] [address] Feb, [facility] [place] [facility] [address] [id number] [place] [address] Jan, [facility] [place] [facility] [address] [id number], [place] [address] Jan, [facility] [place] [facility] [address] [id number] [place] [address] 7962 Jan, [facility] [place] [facility] [address] [id number] [place] [address] Jan, [facility] [place] [facility] [address] [id number], [place] [address] Jan, [facility] [place] [facility] [address] [id number] [place] [address] 19 Jan, 2012 [facility] [place] [facility] [address] [id number] [place] [address] 8868 18 Jan, 2012 [facility] [place] [facility] [address] [id number] [place] [address]- 5470 18 Jan, 2012 [facility] [place] [facility] [address] [id number] [place] [address], [place] [address] 15 Jan, 2012 [facility] [place] [facility] [address] [id number] [place] [address]- 1842 15 Jan, 2012 [facility] [place] [facility] [address] [id number] [place] [address] 1406 11 Jan, 2012 [facility] [place] [facility] [address] [id number] [place] [address]- [address]708 11 Jan, 2012 [facility] [place] [facility] [address] [id number] [place] [address] 264[address] 10 Jan, 2012 [facility] [place] [facility] [address] [id number] [place] [address] 7429 09 Jan, 2012 [facility] [place] [facility] [address] [id number] [place] [address]- 5880 02 Jan, 2012 [facility] [place] [facility] [address] [id number] [place] [address]- 1415 29 Dec, 2011 [facility] [place] [facility] [address] [id number] [place] [address] 28 Dec, 2011 [facility] [place] [facility] [address] [id number] [place] [address] 1179 27 Dec, 2011 [facility] [place] [facility] [address] [id number] [place] [address] 26 Dec, 2011 [facility] [place] [facility] [address] [id number] [place] [address] 4[address] 24 Nov, 2011 [facility] [place] [facility] [address] [id number] [place] [address] Nov, [facility] [place] [facility] [address] [id number] [place] [address] Nov, [facility] [place] [facility] [address] [id number] [place] [address] 0969 Nov, [facility] [place] [facility] [address] [id number] [place] [address] 1285 Nov, [facility] [place] [facility] [address] [id number] [place] [address] 4663 Nov, [facility] [place] [facility] [address] [id number] [place] [address] 6395 Nov, [facility] [place] [facility] [address] [id number] [place] [address]- 5472 Nov, [facility] [place] [facility] [address] [id number] [place] [address] 6707 Nov, [facility] [place] [facility] [address] [id number] [place] [address] 3077 Nov, [facility] [place] [facility] [address] [id number] [place] [address] 130[address] Nov, [facility] [place] [facility] [address] [id number] [place] [address] Oct, [facility] [place] [facility] [address] [id number] [place] [address] Oct, [facility] [place] [facility] [address] [id number] [place] [address]- 6569 Oct, [facility] [place] [facility] [address] [id number] [place] [address]- [address]191 Oct, [facility] [place] [facility] [address] [id number] [place] [address]- 2415 Oct, [facility] [place] [facility] [address] [id number] [place] [address] 6584 Oct, [facility] [place] [facility] [address] [id number] [place] [address] 8079 Oct, [facility] [address] [id number] [place] [address] 8044 Oct, [facility] [address] [id number] [place] [address]- 3587 Sep, [facility] [address] [id number] [place] [address]- 5657 Sep, [facility] [address] [id number] [place] [address]- 58[address] Sep, [facility] [address] [id number] [place] [address]- 5905 Sep, [facility] [address] [id number] [place] [address]- 7698 Sep, [facility] [address] [id number] [place] [address] 3972 Sep, [facility] [address] [id number] [place] [address]- 6687 Sep, [facility] [address] [id number] [place] [address]- 8254 August, [facility] [address] [id number] [place] [address]163 August, [facility] [place] [facility] [address] [id number] [place] [address] 0266 August, [facility] [address] [id number] [place] [address] 97[address] August, [facility] [place] [facility] [address] [id number] [place] [address]- 4491 August, [facility] [place] [facility] [address] [id number] [place] [address]- 0136 August, [facility] [address] [id number] [place] [address]- 1627 August, [facility] [address] [id number] [place] [address]- 2456 August, [facility] [place] [facility] [address] [id number] [place] [address]- 6256 28 Jul, 2011 [facility] [place] [facility] [address] [id number] [place] [address]- 7816 17 Jul, 2011 [facility] [place] [facility] [address] [id number] [place] [address]- 0696 13 Jul, 2011 [facility] [place] [facility] [address] [id number] [place] [address]- 5690 Jul, [facility] [place] [facility] [address] [id number] [place] [address]- [address]646 05 Jul, 2011 [facility] [place] [facility] [address] [id number] [place] [address]- 8111 Jun, [facility] [place] [facility] [address] [id number] [place] [address]- 7745 2011 [facility] [place] [facility] [address] [id number] [place] [address]- 6659 Jun, [facility] [place] [facility] [address] [id number] [place] [address]- 7021 Jun, [facility] [place] [facility] [address] [id number] [place] [address]- 0856 Jun, [facility] [place] [facility] [address] [id number] [place] [address]- 8997 Jun, [facility] [facility] [address] [id number] [place] [address] Jun, [facility] [place] [facility] [address] [id number] [place] [address] 07 Jun, 2011 [facility] [place] [facility] [address] [id number] [place] [address] 06 Jun, 2011 [facility] [place] [facility] [address] [id number] [place] [address] May, [facility] [address] [id number] [place] [address] May, [facility] [place] [facility] [address] [id number] [place] [address] May, [facility] [facility] [address] [id number] [place] [address] May, [facility] [place] [facility] [address] [id number] [place] [address] May, [facility] [address] [id number] [place] [address] May, [facility] [place] [address] [facility] [place] [place] [id number] [place] [address] 25[address] May, [facility] [address] [id number] [place] [address] May, [facility] [address] [id number] [place] [address] Apr, [facility] [place] [facility] [address] [id number] [place] [address] Apr[facility] [address] [facility] [place] [id number] [place] [address] Apr, [facility] [address] [facility] [place] [id number] [place] [address] Apr, [facility] [address] [id number] [place] [address] 2546 Apr, [facility] [place] [facility] [address] [id number] [place] [address] Apr, [facility] [address] [facility] [place] [id number] [place] [address] Mar, [facility] [address] [id number] [place] [address] Mar, [facility] [address] [id number] [place] [address] 26 Mar, 2011 [facility] [facility] [address] [id number] [place] [address] 19 Mar, 2011 [facility] [facility] [address] [id number] [place] [address]- 8564 15 Mar, 2011 [facility] [address] [id number] [place] [address] Mar, [facility] [place] [facility] [address] [id number] [place] [address] Mar, [facility] [address] [id number] [place] [address] Mar, [facility] [facility] [address] [id number] [place] [address] Mar, [facility] [place] [facility] [address] [id number] [place] [address] Mar, [facility] [place] [facility] [address] [id number] [place] [address] Mar, [facility] [address] [id number] [place] [address] Mar, [facility] [address] [facility] [id number], [place] [address] Mar, [facility] [address] [id number], [place] [address] Feb, [facility] [address] [id number] [place] [address] Feb, [facility] [address] [id number] [place] [address] Feb, [facility] [facility] [address] [facility] [place] [id number], [place] [address] 05 Feb, 2011 [facility] [address] [id number], [place] [address] Feb, [facility] [place] [facility] [address] [id number] [place] [address] Feb, [facility] [address] [id number] [place] [address] Feb, [facility] [address] [id number] [place] [address]- [address] Jan, [facility] [address] [id number] [place] [address]- [address] 17 Jan, 2011 [facility] [address] [id number] [place] [address], [place] [address]- [address] Jan, [facility] [address] [id number] [place] [address] Nov, [facility] [address] [facility] [place] [id number] [place] [address]- [address] Mar, [facility] [address] [id number] [place] [address]- [address] Mar, [facility] [address] [facility] [place] [id number] [place] [address]- [address] Mar, [facility] [address] [facility] [place] [id number] [place] [address]- [address] Mar, [facility] [address] [facility] [place] [id number] [place] [address]- [address] Mar, [facility] [address] [id number] [place] [address]- [address] 30 Feb, 2010 [facility] [address] [id number] [place] [address]- [address] 30 Feb, 2010 [facility] [address] [facility] [place] [id number] [place] [address]- [address] 24 Feb, 2010 [facility] [address] [facility] [place] [id number] [place] [address]- [address] Feb, [facility] [address] [facility] [place] [id number] [place] [address] 19 Feb, 2010 [facility] [address] [facility] [place] [id number] [place] [address] 15 Feb, 2010 IMMUNIZATIONS No Known Immunizations [...]
--- OUTSIDE RECORDS SUMMARY | 2017-12-22 04:24 | XMS REPORT ---
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 [id number] [place] [address]- 5315 17 Jun, 2014 [facility] [place] [facility] [address] [id number] [place] [address]- 9815 13 Jun, 2014 [facility] [place] [facility] [address] [id number] [place] [address]- 5317 13 Jun, 2014 [facility] [place] [facility] [address] [id number] [place] [address]- 0947 12 Jun, 2014 [facility] [place] [facility] [address] [id number] [place] [address]- 9041 12 Jun, 2014 [facility] [place] [facility] [address] [id number] [place] [address]- 1331 10 Jun, 2014 [facility] [place] [facility] [address] [id number] [place] [address]- 4043 10 Jun, 2014 [facility] [place] [facility] [address] [id number] [place] [address]- 1501 10 Jun, 2014 [facility] [place] [facility] [address] [id number] [place] [address]- 2047 10 Jun, 2014 [facility] [place] [facility] [address] [id number] [place] [address]- 4242 06 Jun, 2014 [facility] [place] [facility] [address] [id number] [place] [address]- 5527 06 Jun, 2014 [facility] [place] [facility] [address] [id number] [place] [address]- 5636 05 Jun, 2014 [facility] [place] [facility] [address] [id number] [place] [address]- 0819 Jun, [facility] [place] [facility] [address] [facility] [id number] [place] [address]- 9671 Jun, [facility] [place] [facility] [address] [facility] [id number] [place] [address]- 8095 Jun, [facility] [place] [facility] [address] [facility] [id number] [place] [address]- 4122 May, 2014 [facility] [place] [facility] [address] [facility] [id number] [place] [address]- 7606 May, 2014 [facility] [place] [facility] [address] [facility] [id number] [place] [address]- 5019 May, 2014 [facility] [place] [facility] [address] [facility] [id number] [place] [address]- 1419 May, 2014 [facility] [place] [facility] [address] [facility] [id number] [place] [address]- 0629 May, 2014 [facility] [place] [facility] [address] [facility] [id number] [place] [address]- 0613 May, 2014 [facility] [place] [facility] [address] [facility] [id number] [place] [address]- 5095 May, 2014 [facility] [place] [facility] [address] [facility] [id number] [place] [address]- 3699 May, 2014 [facility] [place] [facility] [address] [facility] [id number] [place] [address]- 2593 May, 2014 [facility] [place] [facility] [address] [facility] [id number], [place] [address]- 1721 May, 2014 [facility] [place] [facility] [address] [facility] [id number] [place] [address]- 4454 May, 2014 [facility] [place] [facility] [address] [facility] [id number] [address]- 9947 May, 2014 [facility] [place] [facility] [address] [facility] [id number] [place] [address]- 8291 May, [facility] [place] [facility] [address] [id number] [place] [address]- 0585 May, [facility] [place] [facility] [address] [id number] [place] [address]- 7841 May, [facility] [place] [facility] [address] [id number] [place] [address]- 2469 May, [facility] [place] [facility] [address] [id number] [place] [address]- 5998 Apr, [facility] [place] [facility] [address] [id number] [place] [address]- 2713 Apr, [facility] [place] [facility] [address] [id number] [place] [address]- 0897 Apr, [facility] [place] [facility] [address] [id number] [place] [address]- 3848 Apr, [facility] [place] [facility] [address] [id number] [place] [address]- 6553 Apr, [facility] [place] [facility] [address] [id number] [place] [address]- 5374 Apr, [facility] [place] [facility] [address] [id number] [place] [address]- 3687 Apr, [facility] [place] [facility] [address] [id number], [place] [address]- 6112 Apr, [facility] [place] [facility] [address] [id number], [place] [address]- 2369 Apr, [facility] [place] [facility] [address] [id number] [place] [address]- 6720 Apr, [facility] [place] [facility] [address] [id number], [place] [address]- 2132 Apr, [facility] [place] [facility] [address] [id number] [place] [address]- 9056 Apr, [facility] [place] [facility] [address] [id number] [place] [address]- 8921 Apr, [facility] [place] [facility] [address] [id number] [place] [address]- 4871 Apr, [facility] [place] [facility] [address] [id number] [place] [address]- 2026 Apr, [facility] [place] [facility] [address] [id number] [place] [address]- 1420 Mar, [facility] [place] [facility] [address] [id number] [place] [address]- 5455 Mar, [facility] [place] [facility] [address] [id number] [place] [address]- 2307 Mar, [facility] [place] [facility] [address] [id number] [place] [address]- 3330 Mar, [facility] [place] [facility] [address] [id number] [place] [address]- 0057 Mar, [facility] [place] [facility] [address] [id number] [place] [address]- 1997 Mar, [facility] [place] [facility] [address] [id number] [place] [address]- 1137 Mar, [facility] [place] [facility] [address] [id number] [place] [address]- 7494 Mar, [facility] [place] [facility] [address] [id number] [place] [address]- 0664 15 Mar, 2014 [facility] [place] [facility] [address] [id number] [place] [address]- 8926 15 Mar, 2014 [facility] [place] [facility] [address] [id number] [place] [address]- 4420 Mar, [facility] [place] [facility] [address] [id number] [place] [address]- 0029 15 Mar, 2014 [facility] [place] [facility] [address] [id number] [place] [address]- 1348 Mar, [facility] [place] [facility] [address] [id number] [place] [address]- 3588 Mar, [facility] [place] [facility] [address] [id number] [place] [address]- 8205 Mar, [facility] [place] [facility] [address] [id number] [place] [address]- 1026 Mar, [facility] [place] [facility] [address] [id number] [place] [address]- 6530 Mar, [facility] [place] [facility] [address] [id number] [place] [address]- 2439 Mar, [facility] [place] [facility] [address] [id number] [place] [address]- 7683 Feb, [facility] [place] [facility] [address] [id number] [place] [address]- 1970 Feb, [facility] [place] [facility] [address] [id number] [place] [address]- 9298 Feb, [facility] [place] [facility] [address] [id number] [place] [address]- 1622 Feb, [facility] [place] [facility] [address] [id number] [place] [address]- 1443 Feb, [facility] [place] [facility] [address] [id number] [place] [address]- 8915 Feb, [facility] [place] [facility] [address] [id number] [place] [address]- 5559 Feb, [facility] [place] [facility] [address] [id number] [place] [address]- 3702 Feb, [facility] [place] [facility] [address] [id number] [place] [address]- 6130 Jan, [facility] [place] [facility] [address] [id number] [place] [address]- 0957 Jan, [facility] [place] [facility] [address] [id number] [place] [address]- 3469 Jan, [facility] [place] [facility] [address] [id number] [place] [address]- 8611 Jan, [facility] [place] [facility] [address] [id number] [place] [address]- 9281 Jan, [facility] [place] [facility] [address] [id number] [place] [address]- 4876 Jan, [facility] [place] [facility] [address] [id number] [place] [address]- 6662 Jan, [facility] [place] [facility] [address] [id number] [place] [address]- 2124 Jan, [facility] [place] [facility] [address] [id number] [place] [address]- 8153 Jan, [facility] [place] [facility] [address] [id number] [place] [address]- 4138 Jan, [facility] [place] [facility] [address] [id number], [place] [address]- 5554 Jan, [facility] [place] [facility] [address] [id number] [place] [address]- 1864 Jan, [facility] [place] [facility] [address] [id number], [place] [address]- 5223 Jan, [facility] [place] [facility] [address] [id number], [place] [address]- 0489 Jan, [facility] [place] [facility] [address] [id number][place] [address]- 3264 16 Jan, 2014 [facility] [place] [facility] [address] [id number] [place] [address]- 0935 16 Jan, 2014 [facility] [place] [facility] [address] [id number], [place] [address]- 0618 13 Jan, 2014 [facility] [place] [facility] [address] [id number], [place] [address]- 6885 Jan, [facility] [place] [facility] [address] [id number] [place] [address] 2546 29 Sep, 2013 [facility] [place] [facility] [address] [id number] [place] [address] 2546 29 Sep, 2013 [facility] [place] [facility] [address] [id number] [place] [address] 2546 26 Sep, 2013 [facility] [place] [facility] [address] [id number] [place] [address] 2546 26 Sep, 2013 [facility] [place] [facility] [address] [id number] [place] [address] 2546 26 Sep, 2013 [facility] [place] [facility] [address] [id number] [place] [address] 2547 26 Sep, 2013 [facility] [place] [facility] [address] [id number] [place] [address]- 2545 23 Sep, 2013 [facility] [place] [facility] [address] [id number] [place] [address] 2540 23 Sep, 2013 [facility] [place] [facility] [address] [id number] [place] [address]- 2541 22 Sep, 2013 [facility] [place] [facility] [address] [id number] [place] [address] 2545 22 Sep, 2013 [facility] [place] [facility] [address] [id number] [place] [address] 2549 16 Sep, 2013 [facility] [place] [facility] [address] [id number] [place] [address] 2546 16 Sep, 2013 [facility] [place] [facility] [address] [id number] [place] [address] 2545 15 Sep, 2013 [facility] [place] [facility] [address] [id number] [place] [address] 2546 15 Sep, 2013 [facility] [place] [facility] [address] [id number] [place] [address] 09 Sep, 2013 [facility] [place] [facility] [address] [id number] [place] [address] 0947 Dec, [facility] [place] [facility] [address] [id number] [place] [address] Dec, [facility] [place] [facility] [address] [id number] [place] [address] Nov, [facility] [place] [facility] [address] [id number] [place] [address] Nov, [facility] [place] [facility] [address] [id number] [place] [address] Nov, [facility] [place] [facility] [address] [id number] [place] [address]68 Nov, [facility] [place] [facility] [address] [id number] [place] [address] Nov, [facility] [place] [facility] [address] [id number] [place] [address] Nov, [facility] [place] [facility] [address] [id number] [place] [address] Nov, [facility] [place] [facility] [address] [id number] [place] [address]706 Nov, [facility] [place] [facility] [address] [id number] [place] [address] Nov, [facility] [place] [facility] [address] [id number] [place] [address] Nov, [facility] [place] [facility] [address] [id number] [place] [address] Nov, [facility] [place] [facility] [address] [id number] [place] [address] 1273 Nov, [facility] [place] [facility] [address] [id number] [place] [address] Nov, [facility] [place] [facility] [address] [id number] [place] [address]- 133[address] Nov, [facility] [place] [facility] [address] [id number] [place] [address]678 Nov, [facility] [place] [facility] [address] [id number] [place] [address] Nov, [facility] [place] [facility] [address] [id number] [place] [address] 45[address] Nov, [facility] [place] [facility] [address] [id number] [place] [address]- 1609 Nov, [facility] [place] [facility] [address] [id number] [place] [address] Nov, [facility] [place] [facility] [address] [id number] [place] [address]56 Nov, [facility] [place] [facility] [address] [id number] [place] [address] Nov, [facility] [place] [facility] [address] [id number] [place] [address] Oct, [facility] [place] [facility] [address] [id number] [place] [address]- [address]27 Oct, [facility] [place] [facility] [address] [id number] [place] [address] 8866 Oct, [facility] [place] [facility] [address] [id number] [place] [address] 378[address] Oct, [facility] [place] [facility] [address] [id number] [place] [address]- [address]30 Oct, [facility] [place] [facility] [address] [id number] [place] [address] 49[address] Oct, [facility] [place] [facility] [address] [id number] [place] [address]- [address]851 Oct, [facility] [place] [facility] [address] [id number] [place] [address]- [address]291 Oct, [facility] [place] [facility] [address] [id number] [place] [address]240 Oct, [facility] [place] [facility] [address] [id number] [place] [address] 14 Oct, 2013 [facility] [place] [facility] [address] [id number] [place] [address]396 Oct, [facility] [place] [facility] [address] [id number] [place] [address] Oct, [facility] [place] [facility] [address] [id number] [place] [address]- [address] Oct, [facility] [place] [facility] [address] [id number] [place] [address] 6618 Oct, [facility] [place] [facility] [address] [id number] [place] [address]- [address]67 Oct, [facility] [place] [facility] [address] [id number] [place] [address] Sep, [facility] [place] [facility] [address] [id number] [place] [address]- 1768 Sep, [facility] [place] [facility] [address] [id number] [place] [address]- [address]49 Sep, [facility] [place] [facility] [address] [id number] [place] [address]- 0414 Sep, [facility] [place] [facility] [address] [id number] [place] [address]- [address] Sep, [facility] [place] [facility] [address] [id number] [place] [address]- [address]446 Sep, [facility] [place] [facility] [address] [id number] [place] [address]- [address] Sep, [facility] [place] [facility] [address] [id number] [place] [address]- 6834 Sep, [facility] [place] [facility] [address] [id number] [place] [address]- [address]6 17 Sep, 2013 [facility] [place] [facility] [address] [id number] [place] [address]- [address]657 Sep, [facility] [place] [facility] [address] [id number] [place] [address]- 4035 Sep, [facility] [place] [facility] [address] [id number] [place] [address]- [address] Sep, [facility] [place] [facility] [address] [address] [id number] [place] [address] Sep, [facility] [place] [facility] [address] [id number] [place] [address] 9960 Sep, [facility] [place] [facility] [address] [id number] [place] [address] 5[address] Sep, [facility] [place] [facility] [address] [id number] [place] [address] 6136 Sep, [facility] [place] [facility] [address] [id number] [place] [address] 8543 Sep, [facility] [place] [facility] [address] [id number] [place] [address] 2836 Sep, [facility] [place] [facility] [address] [id number] [place] [address] 7034 Sep, [facility] [place] [facility] [address] [id number] [place] [address] 0250 Sep, [facility] [place] [facility] [address] [id number] [place] [address] 6050 Sep, [facility] [place] [facility] [address] [id number], [place] [address] Sep, [facility] [place] [facility] [address] [id number] [place] [address] 6501 August, [facility] [place] [facility] [address] [id number] [place] [address] 3647 August, [facility] [place] [facility] [address] [id number] [place] [address] 8098 August, [facility] [place] [facility] [address] [id number] [place] [address]- 5749 August, [facility] [address] [id number] [place] [address]- 6524 August, [facility] [place] [facility] [address] [id number] [place] [address]- 5850 August, [facility] [place] [facility] [address] [id number] [place] [address]- 5984 August, [facility] [place] [facility] [address] [id number] [place] [address]- 2688 August, [facility] [place] [facility] [address] [id number] [place] [address]- 7347 August, [facility] [place] [facility] [address] [id number] [place] [address] 2101 August, [facility] [address] [id number] [place] [address]- 1581 August, [facility] [place] [facility] [address] [id number] [place] [address]- 7357 August, [facility] [place] [facility] [address] [id number] [place] [address] 3533 August, [facility] [place] [facility] [address] [id number] [place] [address]- 2843 August, [facility] [place] [facility] [address] [id number] [place] [address]- 2998 August, [facility] [place] [facility] [address] [id number] [place] [address]- 2599 August, [facility] [place] [facility] [address] [id number] [place] [address]- 6901 August, [facility] [place] [facility] [address] [id number] [place] [address]- 3894 August, [facility] [place] [facility] [address] [id number] [place] [address] 9998 Jul, [facility] [place] [facility] [address] [id number] [place] [address]- 9546 Jul, [facility] [place] [facility] [address] [id number] [place] [address]- 8209 Jul, [facility] [place] [facility] [address] [id number] [place] [address]- 1394 Jul, [facility] [place] [facility] [address] [id number] [place] [address]- 5892 Jul, [facility] [place] [facility] [address] [id number] [place] [address] 3245 Jul, [facility] [place] [facility] [address] [id number] [place] [address]- 8987 Jul, [facility] [place] [facility] [address] [id number] [place] [address]- 1438 Jul, [facility] [place] [facility] [address] [id number] [place] [address]- 0742 Jul, [facility] [place] [facility] [address] [id number] [place] [address]- 5403 Jul, [facility] [place] [facility] [address] [id number] [place] [address]- 7911 Jul, [facility] [place] [facility] [address] [id number] [place] [address]- 9960 Jul, [facility] [place] [facility] [address] [id number] [place] [address]- 4731 Jul, [facility] [place] [facility] [address] [id number] [place] [address]- 0436 Jul, [facility] [place] [facility] [address] [id number] [place] [address]- 7681 Jul, [facility] [place] [facility] [address] [id number] [place] [address]- 9541 Jul, [facility] [place] [facility] [address] [id number] [place] [address]- 6754 17 Jul, 2013 [facility] [place] [facility] [address] [id number] [place] [address]- 5843 16 Jul, 2013 [facility] [place] [facility] [address] [id number] [place] [address]- 3014 16 Jul, 2013 [facility] [place] [facility] [address] [id number] [place] [address]- 3610 15 Jul, 2013 [facility] [place] [facility] [address] [id number] [place] [address]- 9332 15 Jul, 2013 [facility] [place] [facility] [address] [id number] [place] [address]- 4258 14 Jul, 2013 [facility] [place] [facility] [address] [id number] [place] [address]- 9067 14 Jul, 2013 [facility] [place] [facility] [address] [id number] [place] [address]- 7595 Jul, [facility] [place] [facility] [address] [id number] [place] [address]- 7337 Jul, [facility] [place] [facility] [address] [id number] [place] [address]- 3861 Jul, [facility] [place] [facility] [address] [id number] [place] [address]- 2519 Jul, [facility] [place] [facility] [address] [id number] [place] [address]- 0748 Jul, [facility] [place] [facility] [address] [id number] [place] [address]- 5997 Jul, [facility] [place] [facility] [address] [id number] [place] [address]- 5910 Jun, [facility] [place] [facility] [address] [id number] [place] [address]- 0174 Jun, [facility] [place] [facility] [address] [id number] [place] [address]- 0907 Jun, [facility] [place] [facility] [address] [id number] [place] [address]- 6250 17 Jun, 2013 [facility] [place] [facility] [address] [id number] [place] [address]- 2548 13 Jun, 2013 [facility] [place] [facility] [address] [id number] [place] [address]- 7576 13 Jun, 2013 [facility] [place] [facility] [address] [id number] [place] [address]- 0403 11 Jun, 2013 [facility] [place] [facility] [address] [id number] [place] [address]- 7436 11 Jun, 2013 [facility] [place] [facility] [address] [id number] [place] [address]- 1785 10 Jun, 2013 [facility] [place] [facility] [address] [facility] [id number] [place] [address]- 1145 Jun, [facility] [place] [facility] [address] [id number] [place] [address]- 0311 04 Jun, 2013 [facility] [place] [facility] [address] [id number] [place] [address]- 0890 04 Jun, 2013 [facility] [place] [facility] [address] [id number] [place] [address]- 4426 May, [facility] [place] [facility] [address] [facility] [id number] [place] [address]- 9287 May, [facility] [place] [facility] [address] [id number] [place] [address]- 6176 May, [facility] [place] [facility] [address] [id number] [place] [address]- 7457 May, [facility] [place] [facility] [address] [id number] [place] [address]- 6168 May, [facility] [place] [facility] [address] [id number] [place] [address]- 6506 May, [facility] [place] [facility] [address] [id number] [place] [address]- 4681 May, [facility] [place] [facility] [address] [id number] [place] [address]- 9359 May, [facility] [place] [facility] [address] [id number] [place] May, [facility] [place] [facility] [address] [id number] [place] [address]- 8097 May, [facility] [place] [facility] [address] [id number] [place] [address]- 3017 Apr, [facility] [place] [facility] [address] [id number] [place] [address]- 2964 Apr, [facility] [place] [facility] [address] [id number] [place] [address]- 5611 Apr, [facility] [place] [facility] [address] [id number] [place] [address]- 9791 Apr, [facility] [place] [facility] [address] [id number] [place] [address]- 6572 Apr, [facility] [place] [facility] [address] [id number] [place] [address]- 8595 Apr, [facility] [place] [facility] [address] [id number] [place] [address]- 5838 Apr, [facility] [place] [facility] [address] [id number] [place] [address]- 2268 Apr, [facility] [place] [facility] [address] [id number] [place] [address]- 6721 Apr, [facility] [place] [facility] [address] [id number] [place] [address]- 7006 Apr, [facility] [place] [facility] [address] [id number] [place] [address]- 6324 Mar, [facility] [place] [facility] [address] [id number] [place] [address]- 6236 Mar, [facility] [place] [facility] [address] [id number] [place] [address]- 7189 Mar, [facility] [place] [facility] [address] [id number] [place] [address]- 7807 Mar, [facility] [place] [facility] [address] [id number] [place] Mar, [facility] [place] [facility] [address] [id number] [place] [address]- 6968 Mar, [facility] [place] [facility] [address] [id number] [place] [address]- 0257 Feb, [facility] [place] [facility] [address] [id number] [place] [address]- 9660 Feb, [facility] [place] [facility] [address] [id number] [place] [address]- 5818 Feb, [facility] [place] [facility] [address] [id number] [place] [address]- 6423 Jan, [facility] [place] [facility] [address] [id number] [place] [address]- 3936 Jan, [facility] [place] [facility] [address] [id number] [place] [address]- 6600 Jan, [facility] [place] [facility] [address] [id number] [place] [address]- 5482 Jan, [facility] [place] [facility] [address] [id number] [place] [address]- 5441 15 Jan, 2013 [facility] [place] [facility] [address] [id number] [place] [address]- 4065 Jan, [facility] [place] [facility] [address] [id number] [place] [address]- 8164 Jan, [facility] [place] [facility] [address] [id number] [place] [address]- 9771 Jan, [facility] [place] [facility] [address] [id number] [place] Jan, [facility] [place] [facility] [address] [id number] [place] [address]- 9096 Jan, [facility] [place] [facility] [address] [id number] [place] [address]- 4060 30 Dec, 2012 [facility] [place] [facility] [address] [id number] [place] [address]- 7814 Dec, 2012 [facility] [place] [facility] [address] [id number] [place] [address]- 0979 Dec, 2012 [facility] [place] [facility] [address] [id number] [place] [address]- 9706 Dec, 2012 [facility] [place] [facility] [address] [id number] [place] [address]- 2416 05 Dec, 2012 [facility] [place] [facility] [address] [id number] [place] [address]- 5108 Dec, [facility] [place] [facility] [address] [id number] [place] [address]- 0959 Nov, [facility] [place] [facility] [address] [id number] [place] [address]- 7036 Nov, [facility] [place] [facility] [address] [id number] [place] [address]- 8449 Nov, [facility] [place] [facility] [address] [id number], [place] [address]- 3230 Nov, [facility] [place] [facility] [address] [id number], [place] [address]- 6056 Nov, [facility] [place] [facility] [address] [id number] [place] [address]- 6242 Nov, [facility] [place] [facility] [address] [id number] [place] [address]- 1694 Nov, [facility] [place] [facility] [address] [id number], [place] [address]- 0592 Nov, [facility] [place] [facility] [address] [id number], [place] [address]- 0712 Nov, [facility] [address] [id number] [place] [address]- 0650 Nov, [facility] [address] [id number] [place] [address]- 4287 Nov, [facility] [address] [id number] [place] [address]- 0619 Nov, [facility] [address] [id number] [place] [address]- 2847 Oct, [facility] [address] [id number] [place] [address]- 0581 Oct, [facility] [address] [id number] [place] [address]- 3977 Oct, [facility] [address] [id number] [place] [address]- 1334 Sep, [facility] [address] [id number] [place] [address]- 0555 Sep, [facility] [address] [id number] [place] [address]- 5166 Sep, [facility] [address] [id number] [place] [address]- 1792 August, [facility] [address] [id number] [place] [address]- 5187 August, [facility] [address] [id number] [place] [address]- 8289 August, [facility] [place] [facility] [address] [id number] [place] [address]- 0165 August, [facility] [address] [id number] [place] [address]- 2686 August, [facility] [address] [id number] [place] [address]- 4371 August, [facility] [address] [id number] [place] [address]- 4034 30 Jul, 2012 [facility] [address] [id number] [place] [address]- 5829 15 Jul, 2012 [facility] [place] [facility] [address] [id number] [place] [address]- 7582 11 Jul, 2012 [facility] [place] [facility] [address] [id number] [place] [address]- 0144 10 Jul, 2012 [facility] [place] [facility] [address] [id number] [place] [address]- 4283 04 Jul, 2012 [facility] [place] [facility] [address] [id number] [place] [address]- 0059 04 Jul, 2012 [facility] [place] [facility] [address] [id number] [place] [address]- 8594 2012 [facility] [place] [facility] [address] [id number] [place] [address]- 5020 20 Jun, 2012 [facility] [place] [facility] [address] [id number] [place] [address]- 9791 18 Jun, 2012 [facility] [place] [facility] [address] [id number] [place] [address]- 4021 14 Jun, 2012 [facility] [place] [facility] [address] [id number] [place] [address]- 4544 04 Jun, 2012 [facility] [place] [facility] [address] [id number] [place] [address]- 6954 13 May, 2012 [facility] [place] [facility] [address] [id number] [place] [address]- 6006 12 May, 2012 [facility] [place] [facility] [address] [id number] [place] [address]- 7630 May, [facility] [place] [facility] [address] [id number] [place] [address]- 0979 08 May, 2012 [facility] [place] [facility] [address] [id number] [place] [address]- 2546 Apr, [facility] [place] [facility] [address] [id number] [place] [address]- 0858 Apr, [facility] [place] [facility] [address] [id number] [place] [address]- 6926 Apr, [facility] [place] [facility] [address] [id number] [place] [address]- 7546 Mar, [facility] [place] [facility] [address] [id number] [place] [address]- 5020 Mar, [facility] [place] [facility] [address] [id number] [place] [address]- 9186 Mar, [facility] [place] [facility] [address] [id number] [place] [address]- 2373 Mar, [facility] [place] [facility] [address] [id number] [place] [address]- 0334 Mar, [facility] [place] [facility] [address] [id number] [place] [address]- 0592 Mar, [facility] [place] [facility] [address] [id number] [place] [address]- 3182 Mar, [facility] [place] [facility] [address] [id number] [place] [address]- 4639 Mar, [facility] [place] [facility] [address] [id number] [place] [address]- 3127 Feb, [facility] [place] [facility] [address] [id number] [place] [address]- 9153 Feb, [facility] [place] [facility] [address] [id number] [place] [address]- 2991 Feb, [facility] [place] [facility] [address] [id number] [place] [address]- 6343 Feb, [facility] [place] [facility] [address] [id number] [place] [address]- 7637 Feb, [facility] [place] [facility] [address] [id number] [place] [address]- 9426 Feb, [facility] [place] [facility] [address] [id number] [place] [address]- 5659 Feb, [facility] [place] [facility] [address] [id number] [place] [address]- 5172 Feb, [facility] [place] [facility] [address] [id number] [place] [address]- 8560 Feb, [facility] [place] [facility] [address] [id number] [place] [address]- 9691 Feb, [facility] [place] [facility] [address] [id number] [place] [address], [place] [address]- 7907 Feb, [facility] [place] [facility] [address] [id number] [place] [address]- 2643 Feb, [facility] [place] [facility] [address] [id number] [place] [address]- 3479 Feb, [facility] [place] [facility] [address] [id number] [place] [address]- 7539 Feb, [facility] [place] [facility] [address] [facility] [id number] [place] [address]- 7189 Feb, [facility] [place] [facility] [address] [facility] [id number] [place] [address]- 6499 Feb, [facility] [place] [facility] [address] [id number] [place] [address]- 4134 Feb, [facility] [place] [facility] [address] [id number] [place] [address]- 2468 Feb, [facility] [place] [facility] [address] [id number] [place] [address]- 3245 Jan, [facility] [place] [facility] [address] [id number] [place] [address]- 4106 Jan, [facility] [place] [facility] [address] [id number] [place] [address]- 8864 Jan, [facility] [place] [facility] [address] [id number] [place] [address]- 4737 20 Jan, 2012 [facility] [place] [facility] [address] [id number] [place] [address]- 8852 20 Jan, 2012 [facility] [place] [facility] [address] [id number] [place] [address]- 4414 19 Jan, 2012 [facility] [place] [facility] [address] [id number] [place] [address]- 9766 18 Jan, 2012 [facility] [place] [facility] [address] [id number] [place] [address]- 1624 18 Jan, 2012 [facility] [place] [facility] [address] [id number] [place] [address]- 0457 15 Jan, 2012 [facility] [place] [facility] [address] [id number] [place] [address] 15 Jan, 2012 [facility] [place] [facility] [address] [id number], [place] [address] Jan, [facility] [place] [facility] [address] [id number] [place] [address]32 11 Jan, 2012 [facility] [place] [facility] [address] [facility] [id number][place] [address] 10 Jan, 2012 [facility] [place] [facility] [address] [id number], [place] [address] 09 Jan, 2012 [facility] [place] [facility] [address] [id number][place] [address] 02 Jan, 2012 [facility] [place] [facility] [address] [id number], [place] [address] 29 Dec, 2011 [facility] [place] [facility] [address] [id number], [place] [address] 28 Dec, 2011 [facility] [place] [facility] [address] [id number], [place] [address] 27 Dec, 2011 [facility] [place] [facility] [address] [id number], [place] [address] Dec, [facility] [place] [facility] [address] [id number] [place] [address] Nov, [facility] [place] [facility] [address] [id number] [place] [address] Nov, [facility] [place] [facility] [address] [id number] [place] [address] 1386 Nov, [facility] [place] [facility] [address] [id number] [place] [address] 9499 Nov, [facility] [place] [facility] [address] [id number] [place] [address] Nov, [facility] [place] [facility] [address] [id number] [place] [address]284 Nov, [facility] [place] [facility] [address] [id number] [place] [address]92 Nov, [facility] [place] [facility] [address] [id number] [place] [address] Nov, [facility] [place] [facility] [address] [id number] [place] [address] Nov, [facility] [place] [facility] [address] [id number] [place] [address]85 Nov, [facility] [place] [facility] [address] [id number] [place] [address] 5865 Nov, [facility] [place] [facility] [address] [id number] [place] [address] 74[address] Oct, [facility] [place] [facility] [address] [id number] [place] [address]13 Oct, [facility] [place] [facility] [address] [id number] [place] [address] 3147 Oct, [facility] [place] [facility] [address] [id number] [place] [address] Oct, [facility] [place] [facility] [address] [id number] [place] [address] 8316 Oct, [facility] [place] [facility] [address] [id number] [place] [address] Oct, [facility] [place] [facility] [address] [id number] [place] [address] 2546 Oct, [facility] [place] [facility] [address] [id number] [place] [address] Oct, [facility] [place] [facility] [address] [id number] [place] [address] Sep, [facility] [place] [facility] [address] [id number] [place] [address] 26[address] Sep, [facility] [place] [facility] [address] [id number] [place] [address] Sep, [facility] [place] [facility] [address] [id number] [place] [address] 69[address] Sep, [facility] [place] [facility] [address] [id number] [place] [address] 6869 Sep, [facility] [place] [facility] [address] [id number] [place] [address] 8988 Sep, [facility] [place] [facility] [address] [id number] [place] [address] 8518 Sep, [facility] [place] [facility] [address] [id number] [place] [address] August, [facility] [place] [facility] [address] [id number] [place] [address] 6865 August, [facility] [place] [facility] [address] [id number] [place] [address] August, [facility] [place] [facility] [address] [id number] [place] [address] August, [facility] [place] [facility] [address] [id number] [place] [address]99 August, [facility] [address] [id number] [place] [address] 5678 August, [facility] [place] [facility] [address] [id number] [place] [address] August, [facility] [place] [facility] [address] [id number] [place] [address] August, [facility] [place] [facility] [address] [id number] [place] [address]- [address] Jul, [facility] [place] [facility] [address] [id number] [place] [address]- 7344 17 Jul, 2011 [facility] [place] [facility] [address] [id number] [place] [address] Jul, [facility] [place] [facility] [address] [id number] [place] [address] 6393 Jul, [facility] [place] [facility] [address] [id number] [place] [address]- [address] Jul, [facility] [place] [facility] [address] [id number] [place] [address]- 76[address] Jun, [facility] [place] [facility] [address] [id number] [place] [address] 3208 Jun, [facility] [place] [facility] [address] [id number] [place] [address]- 6275 Jun, [facility] [place] [facility] [address] [id number] [place] [address]- 1584 19 Jun, 2011 [facility] [place] [facility] [address] [id number] [place] [address]- 6524 Jun, [facility] [place] [facility] [address] [id number] [place] [address] 5739 Jun, [facility] [place] [facility] [address] [id number] [place] [address] Jun, [facility] [place] [facility] [address] [id number] [place] [address]- [address]26 07 Jun, 2011 [facility] [place] [facility] [address] [id number] [place] [address] 8076 Jun, [facility] [place] [facility] [address] [id number] [place] [address]- 5976 May, [facility] [place] [facility] [address] [id number] [place] [address]- [address]116 24 May, 2011 [facility] [place] [facility] [address] [id number] [place] [address] 2546 May, [facility] [place] [facility] [address] [id number] [place] [address]- 9166 May, [facility] [place] [facility] [address] [id number] [place] [address]- 1316 May, [facility] [place] [facility] [address] [id number] [place] [address] 2546 May, [facility] [place] [facility] [address] [id number] [place] [address]- 8589 May, [facility] [place] [facility] [address] [id number] [place] [address]- 3983 May, [facility] [place] [facility] [address] [id number] [place] [address]- [address]304 Apr, [facility] [place] [facility] [address] [id number] [place] [address]- 6066 Apr, [facility] [place] [facility] [address] [id number] [place] [address] 2541 Apr, [facility] [place] [facility] [address] [id number] [place] [address] 2546 Apr, [facility] [facility] [address] [id number] [place] [address] Apr, [facility] [place] [facility] [address] [id number] [place] [address] Apr, [facility] [address] [id number] [place] [address] Mar, [facility] [place] [facility] [address] [id number] [place] [address] Mar, [facility] [place] [facility] [address] [id number] [place] [address] Mar, [facility] [place] [facility] [address] [id number] [place] [address] Mar, [facility] [place] [facility] [address] [id number] [place] [address] 15 Mar, 2011 [facility] [place] [facility] [address] [id number] [place] [address] Mar, [facility] [place] [facility] [address] [id number] [place] [address] Mar, [facility] [place] [facility] [address] [id number] [place] [address] Mar, [facility] [place] [facility] [address] [id number] [place] [address] 2007 Mar, [facility] [place] [facility] [address] [id number] [place] [address] Mar, [facility] [place] [facility] [address] [id number] [address] Mar, [facility] [place] [facility] [address] [id number][place] [address] Mar, [facility] [place] [address] [id number] [place] [address] Mar, [facility] [address] [id number] [address] Feb, [facility] [place] [facility] [address] [id number] [place] [address] 17 Feb, 2011 [facility] [place] [facility] [address] [id number] [place] [address] 17 Feb, 2011 [facility] [place] [facility] [address] [id number] [place] [address] 05 Feb, 2011 [facility] [place] [facility] [address] [id number] [place] [address] Feb, [facility] [address] [id number] [place] [address] Feb, [facility] [place] [facility] [address] [id number] [place] [address] Feb, [facility] [address] [id number] [place] [address] Jan, [facility] [address] [id number] [place] [address] Jan, [facility] [place] [address] [id number] [place] [address] Jan, [facility] [address] [id number] [place] [address] Nov, [facility] [place] [address] [id number] [place] [address] Mar, [facility] [address] [facility] [id number] [place] [address] Mar, [facility] [address] [id number] [place] [address] Mar, [facility] [address] [id number] [place] [address] 13 Mar, 2010 [facility] [facility] [address] [id number] [place] [address] 07 Mar, 2010 [facility] [address] [facility] [id number] [place] [address] 30 Feb, 2010 [facility] [address] [id number] [place] [address] Feb, [facility] [address] [facility] [id number], [place] [address] Feb, [facility] [address] [facility] [id number], [place] [address] Feb, [facility] [address] [facility] [id number], [place] [address] Feb, [facility] [address] [facility] [id number], [place] [address] Feb, IMMUNIZATIONS No Known Immunizations SOCIAL HISTORY Never Assessed REASON FOR VISIT uti symptoms JStrasserRN PLAN OF CARE Activity Details Follow Up prn Reason: VITAL SIGNS Height 60 in 2016-12-27 Weight 205.0 lbs 2016-12-27 Temperature 98.3 degrees Fahrenheit 2016-12-27 Heart Rate 100 bpm 2016-12-27 Respiratory Rate 22 2016-12-27 BMI 40.03 kg/m2 2016-12-27 Blood pressure systolic 164 mmHg 2016-12-27 Blood pressure diastolic 102 mmHg 2016-12-27 MEDICATIONS Medication Instructions Dosage Frequency Start Date End Date Duration Status Omeprazole 20 mg Orally 2 times a day TAKE 1 CAPSULE BY MOUTH TWICE DAILY 12h Active Symbicort 160-4.5 MCG/ACT Inhalation Twice a day 2 puffs 12h 20 May, 2016 Active Lisinopril 5 mg Orally Once a day 1 tablet 24h August, 30 day(s) Active Requip 4 MG Orally Once a day as directed 24h Feb, 30 days Active Diltiazem HCl 120 MG Orally daily TAKE 1 TABLET BY MOUTH 2 TIMES A DAY 24h Active BusPIRone HCl 10 mg Orally Once a day 1 tablet 24h Nov, Active Silvadene 1 % Externally Once a day 1 application to affected area 24h Nov, Active Singulair 10 mg Orally Once a day 1 tablet in the evening 24h August, Active Albuterol Sulfate (2.5 MG/3ML) 0.083% Inhalation every 4-6 hours as needed for cough or wheeze 3 ml Jan, Active Albuterol Sulfate 90 mcg/actuation 2 puffs by Inhalation route every 4-6 hours as needed PRN cough or wheezing Oct, Active Exemestane 25 MG Orally Once a day 1 tablet with a meal 24h Active Cane 1 as directed Sep, Active Hydrocodone-Acetaminophen 5-325 MG Orally every 6 hrs 1 tablet as needed 6h Active Ibuprofen 600 MG Orally every 6 hrs 1 tablet as needed for pain 6h Nov, 30 days Active Oxygen 2 L/NC subcutaneously at night only as directed Jul, Active Pramipexole Dihydrochloride 0.25 MG Orally Once a day TAKE 3 TABLETS BY MOUTH AT BEDTIME 24h 30 days Active Amitriptyline HCl 100 MG Orally Once at bedtime for sleep 1 tablet 90 Active RESULTS Name Result Date Reference Range UA LONG DIP (IN HOUSE) 2016-12-27 Lot # [id number] Exp date Clarity clear Color yellow Odor none GLU negative MELODY negative KET negative SG >=1.030 BLO 2+ pH 6.0 Protein 2+ URO 0.2 NIT negative EMILY negative Lot # [id number] Exp date July 2017 PROCEDURES Procedure Date Ordered Result Body Site URINALYSIS, AUTO, W/O SCOPE Dec 27, 2016 FOR[facility]LY [facility] VISIT ESTABLISHED PATIENT Dec 27, 2016 INSTRUCTIONS MEDICATIONS ADMINISTERED No Known Medications [...]
--- OUTSIDE RECORDS SUMMARY | 2017-12-22 04:28 | XMS REPORT ---
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 [place] [facility] [address] [id number] [place] [address]- 9738 Jun, [facility] [place] [facility] [address] [id number] [place] [address]- 9280 Jun, [facility] [place] [facility] [address] [id number] [place] [address]- 9462 Jun, [facility] [place] [facility] [address] [id number] [place] [address]- 4261 18 Jun, 2014 [facility] [place] [facility] [address] [id number] [place] [address]- 4981 Jun, 2014 [facility] [place] [facility] [address] [id number] [place] [address]- 2562 18 Jun, 2014 [facility] [place] [facility] [address] [id number] [place] [address]- 1393 18 Jun, 2014 [facility] [place] [facility] [address] [id number] [place] [address]- 6130 17 Jun, 2014 [facility] [place] [facility] [address] [id number] [place] [address]- 9745 17 Jun, 2014 [facility] [place] [facility] [address] [id number] [place] [address]- 7723 17 Jun, 2014 [facility] [place] [facility] [address] [id number] [place] [address]- 7826 17 Jun, 2014 [facility] [place] [facility] [address] [id number] [place] [address]- 8706 13 Jun, 2014 [facility] [place] [facility] [address] [id number] [place] [address]- 6317 13 Jun, 2014 [facility] [place] [facility] [address] [id number] [place] [address]- 3314 12 Jun, 2014 [facility] [place] [facility] [address] [id number] [place] [address]- 9004 12 Jun, 2014 [facility] [place] [facility] [address] [id number] [place] [address]- 9871 10 Jun, 2014 [facility] [place] [facility] [address] [id number] [place] [address]- 8148 10 Jun, 2014 [facility] [place] [facility] [address] [id number] [place] [address]- 8508 10 Jun, 2014 [facility] [place] [facility] [address] [id number] [place] [address]- 1293 10 Jun, 2014 [facility] [place] [facility] [address] [id number] [place] [address]- 0499 06 Jun, 2014 [facility] [place] [facility] [address] [id number] [place] [address]- 2121 Jun, [facility] [place] [facility] [address] [id number] [place] [address]- 8826 Jun, [facility] [place] [facility] [address] [facility] [id number] [place] [address]- 4374 Jun, [facility] [place] [facility] [address] [facility] [id number] [place] [address]- 8101 Jun, [facility] [place] [facility] [address] [facility] [id number] [place] [address]- 4208 Jun, [facility] [place] [facility] [address] [facility] [id number] [place] [address]- 9783 May, 2014 [facility] [place] [facility] [address] [facility] [id number] [place] [address]- 7396 May, 2014 [facility] [place] [facility] [address] [facility] [id number] [place] [address]- 5580 May, 2014 [facility] [place] [facility] [address] [facility] [id number] [place] [address]- 0000 May, 2014 [facility] [place] [facility] [address] [facility] [id number] [place] [address]- 9404 May, 2014 [facility] [place] [facility] [address] [facility] [id number] [place] [address]- 8654 May, 2014 [facility] [place] [facility] [address] [facility] [id number] [place] [address]- 3660 May, 2014 [facility] [place] [facility] [address] [facility] [id number] [address]- 3988 May, 2014 [facility] [place] [facility] [address] [facility] [id number] [place] [address]- 3230 May, 2014 [facility] [place] [facility] [address] [facility] [id number] [address]- 5842 May, 2014 [facility] [place] [facility] [address] [facility] [id number] [place] [address]- 5805 May, [facility] [place] [facility] [address] [id number] [place] [address]- 6828 May, [facility] [place] [facility] [address] [id number] [place] [address]- 8396 May, [facility] [place] [facility] [address] [id number] [place] [address]- 0976 May, [facility] [place] [facility] [address] [id number] [place] [address]- 5196 May, [facility] [place] [facility] [address] [id number] [place] [address]- 2728 May, [facility] [place] [facility] [address] [id number] [place] [address]- 8079 Apr, [facility] [place] [facility] [address] [id number] [place] [address]- 8100 Apr, [facility] [place] [facility] [address] [id number] [place] [address]- 2955 Apr, [facility] [place] [facility] [address] [id number] [place] [address]- 2569 Apr, [facility] [place] [facility] [address] [id number] [place] [address]- 1232 Apr, [facility] [place] [facility] [address] [id number] [place] [address]- 1413 Apr, [facility] [place] [facility] [address] [id number] [address]- 1779 Apr, [facility] [place] [facility] [address] [id number] [place] [address]- 4623 Apr, [facility] [place] [facility] [address] [id number] [place] [address]- 1190 Apr, [facility] [place] [facility] [address] [facility] [id number] [place] [address]- 7448 Apr, [facility] [place] [facility] [address] [id number] [place] [address]- 9003 Apr, [facility] [place] [facility] [address] [id number] [place] [address]- 9995 Apr, [facility] [place] [facility] [address] [id number] [place] [address]- 7186 Apr, [facility] [place] [facility] [address] [id number] [place] [address]- 4762 Apr, [facility] [place] [facility] [address] [id number] [place] [address]- 8109 Apr, [facility] [place] [facility] [address] [id number] [place] [address]- 6802 Mar, [facility] [place] [facility] [address] [id number] [place] [address]- 7869 Mar, [facility] [address] [id number] [place] [address]- 1146 Mar, [facility] [place] [facility] [address] [id number] [place] [address]- 2192 Mar, [facility] [place] [facility] [address] [id number] [place] [address]- 1524 Mar, [facility] [place] [facility] [address] [id number] [place] [address]- 2013 Mar, [facility] [place] [facility] [address] [id number] [place] [address]- 8196 15 Mar, 2014 [facility] [place] [facility] [address] [id number] [place] [address]- 254 15 Mar, 2014 [facility] [place] [facility] [address] [id number] [place] [address]- 6997 15 Mar, 2014 [facility] [place] [facility] [address] [id number] [place] [address]- 0661 15 Mar, 2014 [facility] [place] [facility] [address] [id number] [place] [address]- 6699 Mar, [facility] [place] [facility] [address] [id number] [place] [address]- 0153 Mar, [facility] [place] [facility] [address] [id number] [place] [address]- 4419 Mar, [facility] [place] [facility] [address] [id number] [place] [address]- 9857 Mar, [facility] [place] [facility] [address] [id number] [place] [address]- 7783 Mar, [facility] [place] [facility] [address] [id number] [place] [address]- 2778 Mar, [facility] [place] [facility] [address] [id number] [place] [address]- 9300 Mar, [facility] [place] [facility] [address] [id number] [place] [address]- 7757 Mar, [facility] [place] [facility] [address] [id number] [place] [address]- 2485 Feb, [facility] [place] [facility] [address] [id number] [place] [address]- 6481 Feb, [facility] [place] [facility] [address] [id number] [place] [address]- 0120 Feb, [facility] [place] [facility] [address] [id number] [place] [address]- 1459 Feb, [facility] [place] [facility] [address] [id number] [place] [address]- 5121 Feb, [facility] [place] [facility] [address] [id number] [place] [address]- 6836 Feb, [facility] [place] [facility] [address] [id number] [place] [address]- 1544 Feb, [facility] [place] [facility] [address] [id number] [place] 2283 Feb, [facility] [place] [facility] [address] [id number] [place] [address]- 0592 Jan, [facility] [place] [facility] [address] [id number] [place] [address]- 2550 Jan, [facility] [place] [facility] [address] [id number] [place] [address]- 3122 Jan, [facility] [place] [facility] [address] [id number] [place] [address]- 8123 Jan, [facility] [place] [facility] [address] [id number] [place] [address]- 9022 Jan, [facility] [place] [facility] [address] [id number] [place] [address]- 2647 Jan, [facility] [place] [facility] [address] [id number] [place] [address]- 3336 Jan, [facility] [place] [facility] [address] [id number] [place] [address]- 4467 Jan, [facility] [place] [facility] [address] [id number] [place] [address]- 5545 Jan, [facility] [place] [facility] [address] [id number] [place] [address]- 0883 Jan, [facility] [place] [facility] [address] [id number] [place] [address]- 3513 Jan, [facility] [place] [facility] [address] [id number] [address]- 7604 Jan, [facility] [place] [facility] [address] [id number] [address]- 4002 Jan, [facility] [place] [facility] [address] [id number] [place] [address]- 2054 Jan, [facility] [place] [facility] [address] [id number] [address]- 4276 Jan, [facility] [place] [facility] [address] [id number] [place] [address]- 2742 16 Jan, 2013 [facility] [place] [facility] [address] [id number] [place] [address]- 6176 13 Jan, 2014 [facility] [place] [facility] [address] [id number] [place] [address]- 3066 13 Jan, 2014 [facility] [place] [facility] [address] [id number] [place] [address] 29 Sep, 2013 [facility] [place] [facility] [address] [id number] [place] [address] 2546 29 Sep, 2013 [facility] [place] [facility] [address] [id number] [place] [address] 26 Sep, 2013 [facility] [place] [facility] [address] [id number] [place] [address] 26 Dec, 2013 [facility] [place] [facility] [address] [id number] [place] [address] 26 Dec, 2013 [facility] [place] [facility] [address] [id number] [place] [address] 26 Dec, 2013 [facility] [place] [facility] [address] [id number] [place] [address] 23 Dec, 2013 [facility] [place] [facility] [address] [id number] [place] [address] 25[address] 23 Dec, 2013 [facility] [place] [place] [facility] [address] [id number] [place] [address] 22 Dec, 2013 [facility] [place] [facility] [address] [id number] [place] [address] 2544 22 Sep, 2013 [facility] [place] [facility] [address] [id number] [place] [address] 2546 16 Sep, 2013 [facility] [place] [facility] [address] [id number] [place] [address] 2546 16 Sep, 2013 [facility] [place] [facility] [address] [id number] [place] [address]- [address] 15 Dec, 2013 [facility] [place] [facility] [address] [id number] [place] [id number] 15 Dec, 2013 [facility] [place] [facility] [address] [id number] [place] [address] Dec, [facility] [place] [facility] [address] [id number] [place] [address]- [address] Dec, [facility] [place] [facility] [address] [id number] [place] [address]- 77[address] Dec, [facility] [place] [facility] [address] [id number] [place] [address]- [address] Nov, [facility] [place] [facility] [address] [id number] [place] [address]- [address] Nov, [facility] [place] [facility] [address] [id number] [place] [address]- 99[address] Nov, [facility] [place] [facility] [address] [id number] [place] [address]- 3768 Nov, [facility] [place] [facility] [address] [id number] [place] [address]- [address] Nov, [facility] [place] [facility] [address] [id number] [place] [address]- 6604 Nov, [facility] [place] [facility] [address] [id number] [place] [address]- 7663 Nov, [facility] [place] [facility] [address] [id number] [place] [address]- 24[address] Nov, [facility] [place] [facility] [address] [id number] [place] [address]- 0067 Nov, [facility] [place] [facility] [address] [id number] [place] [address]- 6767 Nov, [facility] [place] [facility] [address] [id number] [place] [address]- 3798 Nov, [facility] [place] [facility] [address] [id number] [place] [address]- 5199 Nov, [facility] [place] [facility] [address] [id number] [place] [address]- 7261 Nov, [facility] [place] [facility] [address] [id number] [place] [address]- 7877 Nov, [facility] [place] [facility] [address] [id number] [place] [address]- 74[address] Nov, [facility] [place] [facility] [address] [id number] [place] [address] 48[address] Nov, [facility] [place] [facility] [address] [id number] [place] [address]- 2865 Nov, [facility] [place] [facility] [address] [id number] [place] [address]- 45[address] Nov, [facility] [place] [facility] [address] [id number] [place] [address]- [address] Nov, [facility] [place] [facility] [address] [id number] [place] [address]- 9868 Nov, [facility] [place] [facility] [address] [id number] [place] [address]- [address] Nov, [facility] [place] [facility] [address] [id number] [place] [address]- 65[address] Oct, [facility] [place] [facility] [address] [id number] [place] [address]- [address] Oct, [facility] [place] [facility] [address] [id number] [place] [address]- [address] Oct, [facility] [place] [facility] [address] [id number] [place] [address]- [address] Oct, [facility] [place] [facility] [address] [id number] [place] [address]- [address] Oct, [facility] [place] [facility] [address] [id number] [place] [address]- 7976 Oct, [facility] [place] [facility] [address] [id number] [place] [address]- 2899 Oct, [facility] [place] [facility] [address] [id number] [place] [address]- [address] 15 Oct, 2013 [facility] [place] [facility] [address] [id number] [place] [address]- 3536 15 Oct, 2013 [facility] [place] [facility] [address] [id number] [place] [address]- [address] 14 Oct, 2013 [facility] [place] [facility] [address] [id number] [place] [address]- [address] Oct, 2013 [facility] [place] [facility] [address] [id number] [place] [address]- 0463 Oct, [facility] [place] [facility] [address] [id number] [place] [address]- 9442 Oct, [facility] [place] [facility] [address] [id number] [place] [address]- 8107 Oct, [facility] [place] [facility] [address] [id number] [place] [address]- 5322 Oct, [facility] [place] [facility] [address] [id number] [place] [address]- 6[address] Sep, [facility] [place] [facility] [address] [id number] [place] [address]- 37[address] Sep, [facility] [place] [facility] [address] [id number] [place] [address]- 2080 Sep, [facility] [place] [facility] [address] [id number] [place] [address]- 409[address] Sep, [facility] [place] [facility] [address] [id number] [place] [address]- [address]676 Sep, [facility] [place] [facility] [address] [id number] [place] [address] Sep, [facility] [place] [facility] [address] [id number] [place] [address] 5283 Sep, [facility] [place] [facility] [address] [id number] [place] [address]- 1153 18 Sep, 2013 [facility] [place] [facility] [address] [id number] [place] [address]- 1570 17 Sep, 2013 [facility] [place] [facility] [address] [id number] [place] [address] 7130 Sep, [facility] [place] [facility] [address] [id number] [place] [address] 4500 Sep, [facility] [place] [facility] [address] [id number] [place] [address]- 0705 Sep, [facility] [place] [facility] [address] [id number] [place] [address]- 0589 Sep, [facility] [place] [facility] [address] [id number] [place] [address]- 9594 Sep, [facility] [place] [facility] [address] [id number] [place] [address] 8014 Sep, [facility] [place] [facility] [address] [id number] [place] [address] Sep, [facility] [place] [facility] [address] [id number] [place] [address]- 5372 Sep, [facility] [place] [facility] [address] [id number] [place] [address]- 4118 Sep, [facility] [place] [facility] [address] [id number] [place] [address] 8[address] Sep, [facility] [place] [facility] [address] [id number] [place] [address]- 7980 Sep, [facility] [place] [facility] [address] [id number] [place] [address]- 9689 Sep, [facility] [place] [facility] [address] [id number] [place] [address]- 9794 Sep, [facility] [place] [facility] [address] [id number] [place] [address]- 8249 August, [facility] [place] [facility] [address] [id number] [place] [address]- 6604 August, [facility] [address] [id number] [place] [address] August, [facility] [place] [facility] [address] [id number] [place] [address]- 9681 August, [facility] [address] [id number] [place] [address]- 0311 August, [facility] [place] [facility] [address] [id number] [place] [address]- 9824 August, [facility] [address] [id number] [place] [address]- 2985 August, [facility] [address] [id number] [place] [address]- 6009 August, [facility] [address] [id number] [place] [address]- 3687 August, [facility] [address] [id number] [place] [address]- 2858 August, [facility] [address] [id number] [place] [address]- 7235 August, [facility] [address] [id number] [place] [address]- 3033 August, [facility] [place] [facility] [address] [id number] [place] [address]- 2250 August, [facility] [place] [facility] [address] [id number] [place] [address]- 6012 August, [facility] [place] [facility] [address] [id number] [place] [address]- 6809 August, [facility] [place] [facility] [address] [id number] [place] [address]- 6243 August, [facility] [place] [facility] [address] [id number] [place] [address]- 5682 August, [facility] [place] [facility] [address] [id number] [place] [address]- 3849 August, [facility] [place] [facility] [address] [id number] [place] [address]- 5794 Jul, [facility] [place] [facility] [address] [id number] [place] [address]- 9616 Jul, [facility] [place] [facility] [address] [id number] [place] [address]- 4013 Jul, [facility] [place] [facility] [address] [id number] [place] [address]- 6067 Jul, [facility] [place] [facility] [address] [id number] [place] [address]- 9995 Jul, [facility] [place] [facility] [address] [id number] [place] [address]- 6853 Jul, [facility] [place] [facility] [address] [id number] [place] [address]- 7375 Jul, [facility] [place] [facility] [address] [id number] [place] [address]- 9928 Jul, [facility] [place] [facility] [address] [id number] [place] [address]- 7045 Jul, [facility] [place] [facility] [address] [id number] [place] [address]- 7605 Jul, [facility] [place] [facility] [address] [id number] [place] [address]- 8954 Jul, [facility] [place] [facility] [address] [id number] [place] [address]- 4484 Jul, [facility] [place] [facility] [address] [id number] [place] [address]- 3636 Jul, [facility] [place] [facility] [address] [id number] [place] [address]- 2877 Jul, [facility] [place] [facility] [address] [id number] [place] [address]- 3882 17 Jul, 2013 [facility] [place] [facility] [address] [id number] [place] [address]- 7464 17 Jul, 2013 [facility] [place] [facility] [address] [id number] [place] [address]- 7245 17 Jul, 2013 [facility] [place] [facility] [address] [id number] [place] [address]- 2069 16 Jul, 2013 [facility] [place] [facility] [address] [id number] [place] [address]- 0640 16 Jul, 2013 [facility] [place] [facility] [address] [id number] [place] [address]- 4192 15 Jul, 2013 [facility] [place] [facility] [address] [id number] [place] [address]- 9694 15 Jul, 2013 [facility] [place] [facility] [address] [id number] [place] [address]- 2301 14 Jul, 2013 [facility] [place] [facility] [address] [id number] [place] [address]- 8594 14 Jul, 2013 [facility] [place] [facility] [address] [id number] [place] [address]- 0621 Jul, [facility] [place] [facility] [address] [id number] [place] [address]- 6641 Jul, [facility] [place] [facility] [address] [id number] [place] [address]- 4928 Jul, [facility] [place] [facility] [address] [id number] [place] [address]- 8922 Jul, [facility] [place] [facility] [address] [id number] [place] [address]- 5529 Jul, [facility] [place] [facility] [address] [id number] [place] [address]- 1670 Jul, [facility] [place] [facility] [address] [id number] [place] [address]- 2722 Jun, [facility] [place] [facility] [address] [id number] [place] [address]- 8291 17 Jun, 2013 [facility] [place] [facility] [address] [id number] [place] [address]- 7379 17 Jun, 2013 [facility] [place] [facility] [address] [id number] [place] [address]- 4326 17 Jun, 2013 [facility] [place] [facility] [address] [id number] [place] [address]- 9791 13 Jun, 2013 [facility] [place] [facility] [address] [id number] [place] [address]- 2794 13 Jun, 2013 [facility] [place] [facility] [address] [id number] [place] [address]- 4732 11 Jun, 2013 [facility] [place] [facility] [address] [id number] [place] [address]- 9506 11 Jun, 2013 [facility] [place] [facility] [address] [id number] [place] [address]- 9446 10 Jun, 2013 [facility] [place] [facility] [address] [id number] [place] [address]- 8548 10 Jun, 2013 [facility] [place] [facility] [address] [id number] [place] [address]- 2160 04 Jun, 2013 [facility] [place] [facility] [address] [id number] [place] [address]- 3654 04 Jun, 2013 [facility] [place] [facility] [address] [id number] [place] [address]- 4995 28 May, 2013 [facility] [place] [facility] [address] [id number] [place] [address]- 5061 28 May, 2013 [facility] [place] [facility] [address] [id number] [place] [address]- 8886 07 May, 2013 [facility] [place] [facility] [address] [id number] [place] [address]- 3046 07 May, 2013 [facility] [place] [facility] [address] [id number] [place] [address]- 5017 May, [facility] [place] [facility] [address] [id number] [place] [address]- 0638 May, [facility] [place] [facility] [address] [id number] [place] [address]- 1976 May, [facility] [place] [facility] [address] [id number] [place] [address]- 0786 May, [facility] [place] [facility] [address] [id number] [place] [address]- 1424 May, [facility] [place] [facility] [address] [id number] [place] [address]- 6341 May, [facility] [place] [facility] [address] [id number] [place] [address]- 3886 Apr, [facility] [place] [facility] [address] [id number] [place] [address]- 3058 Apr, [facility] [place] [facility] [address] [id number] [place] [address]- 8934 Apr, [facility] [place] [facility] [address] [id number] [place] [address]- 1478 Apr, [facility] [place] [facility] [address] [facility] [id number] [place] [address]- 0170 Apr, [facility] [place] [facility] [address] [id number] [place] [address]- 0248 Apr, [facility] [place] [facility] [address] [id number] [address]- 3150 Apr, [facility] [place] [facility] [address] [id number] [place] [address]- 2733 Apr, [facility] [place] [facility] [address] [id number] [place] [address]- 0217 Apr, [facility] [place] [facility] [address] [facility] [id number] [place] [address]- 5662 Apr, [facility] [place] [facility] [address] [id number] [place] [address]- 1525 Mar, [facility] [place] [facility] [address] [id number] [place] [address]- 7094 Mar, [facility] [place] [facility] [address] [id number] [place] [address]486 Mar, [facility] [place] [facility] [address] [id number] [place] [address]- 6710 Mar, [facility] [place] [facility] [address] [id number] [place] [address]- 2846 Mar, [facility] [place] [facility] [address] [id number] [place] 1993 Mar, [facility] [place] [facility] [address] [id number] [place] [address]- 0146 Feb, [facility] [place] [facility] [address] [id number] [place] [address]- 9311 Feb, [facility] [place] [facility] [address] [id number] [place] [address]- 1264 Feb, [facility] [place] [facility] [address] [id number] [place] [address]- 2504 30 Jan, 2013 [facility] [place] [facility] [address] [id number] [place] [address]- 4297 30 Jan, 2013 [facility] [place] [facility] [address] [id number] [place] [address]- 6778 28 Jan, 2013 [facility] [place] [facility] [address] [id number] [place] [address] 2544 28 Jan, 2013 [facility] [place] [facility] [address] [id number] [place] [address]- 2926 15 Jan, 2013 [facility] [place] [facility] [address] [id number] [place] [address]- 0086 15 Jan, 2013 [facility] [place] [facility] [address] [id number] [place] [address]- 5464 Jan, [facility] [place] [facility] [address] [id number] [place] [address]- 2885 Jan, [facility] [place] [facility] [address] [id number] [place] [address]- 5093 Jan, [facility] [place] [facility] [address] [id number] [place] [address]- 7172 Jan, [facility] [place] [facility] [address] [id number] [place] [address]- 0748 30 Dec, 2012 [facility] [place] [facility] [address] [id number] [place] [address]- 3979 Dec, [facility] [place] [facility] [address] [id number] [place] [address]- 2711 Dec, [facility] [place] [facility] [address] [id number] [place] [address]- 6325 Dec, [facility] [place] [facility] [address] [id number] [place] [address]- 8924 Dec, [facility] [place] [facility] [address] [id number] [place] [address]- 0413 Dec, [facility] [place] [facility] [address] [id number] [place] [address]- 8214 Nov, [facility] [place] [facility] [address] [id number] [address]- 8715 Nov, [facility] [place] [facility] [address] [id number] [place] [address]- 7049 Nov, [facility] [place] [facility] [address] [id number] [place] [address]- 1798 Nov, [facility] [place] [facility] [address] [id number] [place] [address]- 6664 Nov, [facility] [place] [facility] [address] [id number] [place] [address]- 4543 Nov, [facility] [place] [facility] [address] [id number] [place] [address]- 0858 Nov, [facility] [address] [id number] [place] [address]- 4025 Nov, [facility] [place] [facility] [address] [id number] [place] [address]- 3280 Nov, [facility] [place] [facility] [address] [id number] [place] [address]- 3540 Nov, [facility] [place] [facility] [address] [id number] [place] [address]- 6306 Nov, [facility] [place] [facility] [address] [id number] [place] [address]- 0592 Nov, [facility] [place] [facility] [address] [id number] [place] [address]- 0074 Oct, [facility] [place] [facility] [address] [id number] [place] [address]- 6241 Oct, [facility] [place] [facility] [address] [id number] [place] [address]- 8218 Oct, [facility] [place] [facility] [address] [id number] [place] [address]- 0963 Sep, [facility] [place] [facility] [address] [id number] [place] [address]- 4166 Sep, [facility] [place] [facility] [address] [id number] [place] [address]- 5323 Sep, [facility] [place] [facility] [address] [id number] [place] [address]- 0439 August, [facility] [place] [facility] [address] [id number] [place] [address]- 9719 August, [facility] [place] [facility] [address] [id number] [place] [address]- 4018 August, [facility] [place] [facility] [address] [id number] [place] [address]- 7734 August, [facility] [place] [facility] [address] [id number] [place] [address]- 4713 August, [facility] [address] [id number] [place] [address]- 6951 August, [facility] [address] [id number] [place] [address]- 0426 Jul, [facility] [place] [facility] [address] [id number] [place] [address]- 7787 Jul, [facility] [place] [facility] [address] [id number] [place] [address]- 7288 Jul, [facility] [place] [facility] [address] [id number] [place] [address]- 0074 Jul, [facility] [address] [id number] [place] [address]- 9785 Jul, [facility] [address] [id number] [place] [address]- 7886 Jul, [facility] [address] [id number] [place] [address]- 9824 Jun, [facility] [address] [id number] [place] [address]- 9470 Jun, [facility] [address] [id number] [place] [address]- 1531 18 Jun, 2012 [facility] [address] [id number] [place] [address]- 7266 14 Jun, 2012 [facility] [address] [id number] [place] [address]- 5692 04 Jun, 2012 [facility] [place] [facility] [address] [id number] [place] [address]- 4052 May, [facility] [place] [facility] [address] [id number] [place] [address]- 9388 May, [facility] [place] [facility] [address] [id number] [place] [address]- 1422 May, [facility] [place] [facility] [address] [id number] [place] [address]- 7866 May, [facility] [place] [facility] [address] [id number] [place] [address]- 2192 Apr, [facility] [place] [facility] [address] [facility] [id number] [place] [address]- 9507 Apr, [facility] [place] [facility] [address] [id number] [place] [address]- 0114 Apr, [facility] [place] [facility] [address] [id number] [place] [address]- 1534 Mar, [facility] [place] [facility] [address] [id number] [place] [address]- 9206 Mar, [facility] [place] [facility] [address] [facility] [id number] [place] [address]- 7476 Mar, [facility] [place] [facility] [address] [id number] [place] [address]- 7374 Mar, [facility] [place] [facility] [address] [facility] [id number] [place] [address]- 2322 Mar, [facility] [place] [facility] [address] [facility] [id number] [place] [address]- 9786 Mar, [facility] [place] [facility] [address] [id number] [place] [address]- 6317 Mar, [facility] [place] [facility] [address] [id number] [place] [address]- 6285 Mar, [facility] [place] [facility] [address] [id number] [place] [address]- 7959 Feb, [facility] [place] [facility] [address] [id number] [place] [address]- 0748 Feb, [facility] [place] [facility] [address] [facility] [id number] [place] [address]- 1025 Feb, [facility] [place] [facility] [address] [id number] [place] [address]- 3469 Feb, [facility] [place] [facility] [address] [id number] [place] [address]- 9704 Feb, [facility] [place] [facility] [address] [id number] [place] [address]- 4966 Feb, [facility] [place] [facility] [address] [id number] [place] [address]- 4046 Feb, [facility] [place] [facility] [address] [id number] [place] [address]- 1268 Feb, [facility] [place] [facility] [address] [id number] [place] [address]- 0724 Feb, [facility] [place] [facility] [address] [id number] [place] [address] Feb, [facility] [place] [facility] [address] [id number] [place] [address] Feb, [facility] [place] [facility] [address] [id number] [place] [address] Feb, [facility] [place] [facility] [address] [id number] [place] [address] 17[address] Feb, [facility] [place] [facility] [address] [facility] [id number] [place] [address] Feb, [facility] [place] [facility] [address] [id number] [place] [address] Feb, [facility] [place] [facility] [address] [id number] [place] [address] 8291 Feb, [facility] [place] [facility] [address] [id number] [place] [address] Feb, [facility] [place] [facility] [address] [id number] [place] [address] Feb, [facility] [place] [facility] [address] [id number] [place] [address] 6[address] 23 Jan, 2012 [facility] [place] [facility] [address] [id number] [place] [address] Jan, [facility] [place] [facility] [address] [id number] [place] [address] 22 Jan, 2012 [facility] [place] [facility] [address] [id number] [place] [address] 6413 20 Jan, 2012 [facility] [place] [facility] [address] [id number] [place] [address] 2974 20 Jan, 2012 [facility] [place] [facility] [address] [id number] [place] [address] 6983 19 Jan, 2012 [facility] [place] [facility] [address] [id number] [place] [address] 5849 18 Jan, 2012 [facility] [place] [facility] [address] [id number] [place] [address] 5868 18 Jan, 2012 [facility] [place] [facility] [address] [id number] [place] [address] 15 Jan, 2012 [facility] [place] [facility] [address] [id number] [place] [address] 7723 15 Jan, 2012 [facility] [place] [facility] [address] [id number] [place] [address] Jan, [facility] [place] [facility] [address] [id number] [place] [address] 5637 11 Jan, 2012 [facility] [place] [facility] [address] [id number] [place] [address] 2246 10 Jan, 2012 [facility] [place] [facility] [address] [id number] [place] [address] 1362 09 Jan, 2012 [facility] [place] [facility] [address] [id number] [place] [address]484 02 Jan, 2012 [facility] [place] [facility] [address] [id number] [place] [address] 29 Dec, 2011 [facility] [place] [facility] [address] [id number] [place] [address] 5298 28 Dec, 2011 [facility] [place] [facility] [address] [id number] [place] [address] 7846 27 Dec, 2011 [facility] [place] [facility] [address] [id number] [place] [address] Dec, [facility] [place] [facility] [address] [id number] [place] [address] 3716 Nov, [facility] [place] [facility] [address] [id number] [place] [address] 5786 Nov, [facility] [place] [facility] [address] [id number] [place] [address] 3242 Nov, [facility] [place] [facility] [address] [id number] [place] [address] 2142 Nov, [facility] [place] [facility] [address] [id number] [place] [address]- 0435 Nov, [facility] [place] [facility] [address] [id number] [place] [address] 4291 Nov, [facility] [place] [facility] [address] [id number] [place] [address] 9125 Nov, [facility] [place] [facility] [address] [id number] [place] [address]341 Nov, [facility] [place] [facility] [address] [id number] [place] [address] 2962 Nov, [facility] [place] [facility] [address] [id number] [place] [address] 2545 Nov, [facility] [place] [facility] [address] [id number] [place] [address] 9490 Nov, [facility] [place] [facility] [address] [id number] [place] [address] 5495 Oct, [facility] [place] [facility] [address] [id number] [place] [address]- 5928 Oct, [facility] [place] [facility] [address] [id number] [place] [address] 4347 Oct, [facility] [place] [facility] [address] [id number] [place] [address] 4197 Oct, [facility] [place] [facility] [address] [id number] [place] [address] 2696 Oct, [facility] [place] [facility] [address] [id number] [place] [address] 2133 Oct, [facility] [place] [facility] [address] [id number] [place] [address] 1183 Oct, [facility] [place] [facility] [address] [id number] [place] [address] 3665 Oct, [facility] [place] [facility] [address] [id number] [place] [address]- 8989 Sep, [facility] [place] [facility] [address] [id number] [place] [address]- 0702 Sep, [facility] [place] [facility] [address] [id number] [place] [address]- 1668 Sep, [facility] [place] [facility] [address] [id number] [place] [address]- 1259 Sep, [facility] [place] [facility] [address] [id number] [place] [address]- 7487 Sep, [facility] [place] [facility] [address] [id number] [place] [address] 3435 Sep, [facility] [place] [facility] [address] [id number] [place] [address] 6689 Sep, [facility] [place] [facility] [address] [id number] [place] [address]- 7754 August, [facility] [place] [facility] [address] [id number] [place] [address] 2315 August, [facility] [place] [facility] [address] [id number] [place] [address]- 9516 August, [facility] [address] [id number] [place] [address]- 9788 16 Aug, 2011 [facility] [place] [facility] [address] [id number] [place] [address]- 0716 August, [facility] [place] [facility] [address] [id number] [place] [address]- 5776 August, [facility] [place] [facility] [address] [id number] [place] [address]- 3530 August, [facility] [place] [place] [facility] [address] [id number] [place] [address]- 5987 August, [facility] [place] [facility] [address] [id number] [place] [address]- 6673 28 Jul, 2011 [facility] [place] [facility] [address] [id number] [place] [address]- 3337 17 Jul, 2011 [facility] [place] [facility] [address] [id number] [place] [address]- 3152 13 Jul, 2011 [facility] [place] [place] [facility] [address] [id number] [place] [address]- 6612 11 Jul, 2011 [facility] [place] [facility] [address] [id number] [place] [address]- 0826 05 Jul, 2011 [facility] [place] [facility] [address] [id number] [place] [address]- 6345 28 Jun, 2011 [facility] [place] [facility] [address] [id number] [place] [address]- 6481 2011 [facility] [place] [facility] [address] [id number] [place] [address]- 5055 20 Jun, 2011 [facility] [place] [facility] [address] [id number] [place] [address]- 6413 19 Jun, 2011 [facility] [place] [facility] [address] [id number] [place] [address]- 8783 12 Jun, 2011 [facility] [place] [facility] [address] [id number] [place] [address] 12 Jun, 2011 [facility] [place] [facility] [address] [id number] [place] [address] Jun, [facility] [place] [facility] [address] [id number] [place] [address] Jun, [facility] [place] [facility] [address] [id number] [place] [address] Jun, [facility] [place] [facility] [address] [id number] [place] [address] 27 May, 2011 [facility] [place] [facility] [address] [id number] [place] [address] 24 May, 2011 [facility] [place] [facility] [address] [id number] [place] [address] May, [facility] [place] [facility] [address] [id number] [place] [address] May, [facility] [place] [facility] [address] [id number] [place] [address] May, [facility] [place] [facility] [address] [id number] [place] [address] May, [facility] [place] [facility] [address] [id number] [place] [address] May, [facility] [place] [facility] [address] [id number] [place] [address] May, [facility] [place] [facility] [address] [id number] [place] [address] Apr, [facility] [place] [facility] [address] [id number] [place] [address] 2546 Apr, [facility] [place] [facility] [address] [id number] [place] [address] Apr, [facility] [place] [facility] [address] [id number] [place] [address] Apr, [facility] [address] [id number] [place] [address] Apr, [facility] [place] [facility] [address] [id number] [place] [address] Apr, [facility] [place] [facility] [address] [id number] [place] [address] Mar, [facility] [place] [facility] [address] [id number] [place] [address] Mar, [facility] [address] [id number] [place] [address] Mar, [facility] [place] [facility] [address] [id number] [place] [address] Mar, [facility] [place] [facility] [address] [id number] [place] [address] 15 Mar, 2011 [facility] [place] [facility] [address] [id number] [place] [address] Mar, [facility] [address] [id number] [place] [address] Mar, [facility] [place] [facility] [address] [id number] [place] [address] Mar, [facility] [place] [facility] [address] [id number] [place] [address] Mar, [facility] [place] [facility] [address] [id number] [place] [address] Mar, [facility] [place] [facility] [address] [id number] [place] [address] Mar, [facility] [place] [facility] [address] [id number] [place] [address] 05 Mar, 2011 [facility] [place] [facility] [address] [id number] [place] [address] Mar, [facility] [place] [facility] [address] [id number] [place] [address] Feb, [facility] [place] [facility] [address] [id number] [place] [address] Feb, [facility] [place] [facility] [address] [id number] [place] [address] Feb, [facility] [place] [facility] [address] [id number] [place] [address] Feb, [facility] [place] [facility] [address] [id number] [place] [address] Feb, [facility] [place] [facility] [address] [id number] [place] [address] Feb, [facility] [place] [facility] [address] [id number] [place] [address] Feb, [facility] [place] [facility] [address] [id number] [place] [address] Jan, [facility] [place] [facility] [address] [id number] [place] [address] Jan, [facility] [place] [facility] [address] [facility] [id number] [place] [address] Jan, [facility] [address] [facility] [id number] [place] [address] Nov, [facility] [address] [id number] [place] [address] Mar, [facility] [place] [facility] [address] [id number] [place] [address] Mar, [facility] [place] [facility] [address] [id number] [place] [address] Mar, [facility] [place] [facility] [address] [id number] [place] [address] Mar, [facility] [place] [facility] [address] [id number] [place] Mar, [facility] [address] [facility] [id number] [place] [address] Feb, [facility] [address] [facility] [id number] [place] [address] Feb, [facility] [address] [facility] [id number] [place] [address] Feb, [facility] [address] [facility] [id number] [place] [address] Feb, [facility] [address] [facility] [id number] [place] [address] Feb, [facility] [address] [facility] [id number] [place] [address] Feb, IMMUNIZATIONS No Known Immunizations SOCIAL HISTORY Never Assessed REASON FOR VISIT med order PLAN OF CARE VITAL SIGNS MEDICATIONS Medication Instructions Dosage Frequency Start Date End Date Duration Status Mometasone Furoate 0.1 % Externally twice a day apply thin layer bid x 10 days only 12h Feb, 10 days Active RESULTS No Results PROCEDURES [...]
--- OUTSIDE RECORDS SUMMARY | 2017-12-22 04:33 | XMS REPORT ---
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 [facility] [place] [facility] [address] [id number] [place] [address]- 7078 10 Jun, 2014 [facility] [place] [facility] [address] [id number] [place] [address]- 1705 06 Jun, 2014 [facility] [place] [facility] [address] [id number] [place] [address]- 8180 Jun, 2014 [facility] [place] [facility] [address] [id number] [place] [address]- 2292 Jun, 2014 [facility] [place] [facility] [address] [facility] [id number] [place] [address]- 8568 Jun, 2014 [facility] [place] [facility] [address] [facility] [id number] [place] [address]- 5893 Jun, 2014 [facility] [place] [facility] [address] [id number] [place] [address]- 7003 Jun, [facility] [place] [facility] [address] [id number] [place] [address]- 5580 May, 2014 [facility] [place] [facility] [address] [facility] [id number] [place] [address]- 4201 May, 2014 [facility] [place] [facility] [address] [facility] [id number] [place] [address]- 3925 May, 2014 [facility] [place] [facility] [address] [facility] [id number] [place] [address]- 3209 May, 2014 [facility] [place] [facility] [address] [facility] [id number] [place] [address]- 1075 May, 2014 [facility] [place] [facility] [address] [facility] [id number] [place] [address]- 4383 May, 2014 [facility] [place] [facility] [address] [facility] [id number] [place] [address]- 0940 May, 2014 [facility] [place] [facility] [address] [facility] [id number] [place] [address]- 9134 May, 2014 [facility] [place] [facility] [address] [facility] [id number] [place] [address]- 3750 May, 2014 [facility] [place] [facility] [address] [facility] [id number] [place] [address]- 6913 17 May, 2014 [facility] [place] [facility] [address] [facility] [id number] [place] [address]- 4537 May, [facility] [place] [facility] [address] [id number] [place] [address]- 5473 May, [facility] [place] [facility] [address] [id number] [place] 8252 May, [facility] [place] [facility] [address] [id number] [place] [address]- 3285 May, [facility] [place] [facility] [address] [id number] [place] [address]- 2504 May, [facility] [place] [facility] [address] [id number] [place] [address]- 5468 May, [facility] [place] [facility] [address] [id number] [place] [address]- 1846 Apr, [facility] [place] [facility] [address] [id number] [place] [address]- 5618 Apr, [facility] [place] [facility] [address] [id number] [place] [address]- 1842 Apr, [facility] [place] [facility] [address] [id number] [place] [address]- 5153 Apr, [facility] [place] [facility] [address] [facility] [id number] [place] [address]- 4544 Apr, [facility] [place] [facility] [address] [id number] [place] [address]- 9532 Apr, [facility] [place] [facility] [address] [id number], [place] [address]- 8066 Apr, [facility] [place] [facility] [address] [id number] [place] [address]- 7618 Apr, [facility] [place] [facility] [address] [id number] [place] [address]- 0837 Apr, [facility] [place] [facility] [address] [facility] [id number], [place] [address]- 6937 Apr, [facility] [place] [facility] [address] [id number] [place] [address]- 8714 Apr, [facility] [place] [facility] [address] [id number] [place] [address]- 1476 Apr, [facility] [place] [facility] [address] [id number] [place] [address]- 5646 Apr, [facility] [place] [facility] [address] [id number] [place] [address]- 5071 Apr, [facility] [place] [facility] [address] [id number] [place] [address]- 1513 Apr, [facility] [place] [facility] [address] [id number] [place] [address]- 6231 Mar, [facility] [place] [facility] [address] [id number] [place] [address]- 0992 Mar, [facility] [place] [facility] [address] [id number] [place] [address]- 9373 Mar, [facility] [place] [facility] [address] [id number] [place] [address]- 9501 Mar, [facility] [place] [facility] [address] [id number] [place] [address]- 1572 Mar, [facility] [place] [facility] [address] [id number] [place] [address]- 8601 Mar, [facility] [place] [facility] [address] [id number] [place] [address]- 4565 15 Mar, 2014 [facility] [place] [facility] [address] [id number] [place] [address]- 7946 15 Mar, 2014 [facility] [place] [facility] [address] [id number] [place] [address] 2546 Mar, [facility] [place] [facility] [address] [id number] [place] [address]- 2546 15 Mar, 2014 [facility] [place] [facility] [address] [id number] [place] [address]- 9833 Mar, [facility] [place] [facility] [address] [id number] [place] [address]- 1555 Mar, [facility] [place] [facility] [address] [id number] [place] [address]- 7143 Mar, [facility] [place] [facility] [address] [id number] [place] 0132 Mar, [facility] [place] [facility] [address] [id number] [place] [address]- 7879 Mar, [facility] [place] [facility] [address] [id number] [place] [address]- 5981 Mar, [facility] [place] [facility] [address] [id number] [place] [address]- 2706 Mar, [facility] [place] [facility] [address] [id number] [place] [address]- 2838 Mar, [facility] [place] [facility] [address] [id number] [place] [address]- 8152 Feb, [facility] [place] [facility] [address] [id number] [place] [address]- 4102 Feb, [facility] [place] [facility] [address] [id number] [place] [address]- 6770 Feb, [facility] [place] [facility] [address] [id number], [place] [address]- 7222 Feb, [facility] [place] [facility] [address] [id number], [place] [address]- 7902 Feb, [facility] [place] [facility] [address] [id number] [place] [address]- 7243 Feb, [facility] [place] [facility] [address] [id number], [place] [address]- 9600 Feb, [facility] [place] [facility] [address] [id number] [place] [address]- 6966 Feb, [facility] [place] [facility] [address] [id number] [place] [address]- 5869 Jan, 2013 [facility] [place] [facility] [address] [id number] [place] [address]- 8161 Jan, 2013 [facility] [place] [facility] [address] [id number] [place] [address]- 9819 Jan, 2013 [facility] [place] [facility] [address] [id number] [place] [address]- 2769 Jan, 2013 [facility] [place] [facility] [address] [id number] [place] [address]- 0130 Jan, 2013 [facility] [place] [facility] [address] [id number] [place] [address]- 8092 Jan, [facility] [place] [facility] [address] [id number] [place] [address]- 0153 Jan, [facility] [place] [facility] [address] [id number] [place] [address]- 2800 Jan, [facility] [place] [facility] [address] [id number] [place] [address]- 9575 Jan, [facility] [place] [facility] [address] [id number] [place] [address]- 3986 Jan, [facility] [place] [facility] [address] [id number] [place] [address] Jan, [facility] [place] [facility] [address] [id number] [place] [address] Jan, 2013 [facility] [place] [facility] [address] [id number] [place] [address] Jan, [facility] [place] [facility] [address] [id number] [place] [address] Jan, 2013 [facility] [place] [facility] [address] [id number] [place] [address] Jan, 2013 [facility] [place] [facility] [address] [id number] [place] [address] 16 Jan, 2014 [facility] [place] [facility] [address] [id number] [place] [address] 13 Jan, 2014 [facility] [place] [facility] [address] [id number] [place] [address] 13 Jan, 2014 [facility] [place] [facility] [address] [id number] [place] [address] 29 Dec, 2013 [facility] [place] [facility] [address] [id number] [place] [address] 2547 29 Dec, 2013 [facility] [place] [facility] [address] [id number] [place] [address] 26 Dec, 2013 [facility] [place] [facility] [address] [id number] [place] [address]- [address] 26 Dec, 2013 [facility] [place] [facility] [address] [id number] [place] [address]- [address] 26 Dec, 2013 [facility] [place] [facility] [address] [id number] [place] [address]- 4741 26 Dec, 2013 [facility] [place] [facility] [address] [id number] [place] [address] 118[address] 23 Dec, 2013 [facility] [place] [facility] [address] [id number] [place] [address]- 8368 23 Dec, 2013 [facility] [place] [facility] [address] [id number] [place] [address] 2543 22 Dec, 2013 [facility] [place] [facility] [address] [id number] [place] [address]- [address]49 22 Dec, 2013 [facility] [place] [facility] [address] [id number] [place] [address]- 254 16 Dec, 2013 [facility] [place] [facility] [address] [id number] [place] [address]- 2542 16 Dec, 2013 [facility] [place] [facility] [address] [id number] [place] [address]- 477[address] 15 Dec, 2013 [facility] [place] [facility] [address] [id number] [place] [address] Dec, [facility] [place] [facility] [address] [id number] [place] [address] 9032 Dec, [facility] [place] [facility] [address] [id number] [place] [address] Dec, [facility] [place] [facility] [address] [id number] [place] [address] 9583 Dec, [facility] [place] [facility] [address] [id number] [place] [address] Nov, [facility] [place] [facility] [address] [id number] [place] [address] Nov, [facility] [place] [facility] [address] [id number] [place] [address] 48[address] Nov, [facility] [place] [facility] [address] [id number] [place] [address] 7940 Nov, [facility] [place] [facility] [address] [id number] [place] [address] 2002 Nov, [facility] [place] [facility] [address] [id number] [place] [address] Nov, [facility] [place] [facility] [address] [id number] [place] [address] Nov, [facility] [place] [facility] [address] [id number] [place] [address] Nov, [facility] [place] [facility] [address] [id number] [place] [address] 8793 Nov, [facility] [place] [facility] [address] [id number] [place] [address]- 9440 Nov, [facility] [place] [facility] [address] [id number] [place] [address] 8253 Nov, [facility] [place] [facility] [address] [id number] [place] [address] 8821 Nov, [facility] [place] [facility] [address] [id number] [place] [address] Nov, [facility] [place] [facility] [address] [id number] [place] [address] Nov, [facility] [place] [facility] [address] [id number] [place] [address] Nov, [facility] [place] [facility] [address] [id number] [place] [address]- [address]297 Nov, [facility] [place] [facility] [address] [id number] [place] [address]- 133[address] Nov, [facility] [place] [facility] [address] [id number] [place] [address] Nov, [facility] [place] [facility] [address] [id number] [place] [address] Nov, [facility] [place] [facility] [address] [id number] [place] [address] Nov, [facility] [place] [facility] [address] [id number] [place] [address] 70[address] Nov, [facility] [place] [facility] [address] [id number] [place] [address] 137[address] Oct, [facility] [place] [facility] [address] [id number] [place] [address] 41[address] Oct, [facility] [place] [facility] [address] [id number] [place] [address]- [address] Oct, [facility] [place] [facility] [address] [id number] [place] [address]- 7767 Oct, [facility] [place] [facility] [address] [id number] [place] [address]- 4242 Oct, [facility] [place] [facility] [address] [id number] [place] [address]- 7785 Oct, [facility] [place] [facility] [address] [id number] [place] [address]- 47[address] Oct, [facility] [place] [facility] [address] [id number] [place] [address]- 6783 Oct, [facility] [place] [facility] [address] [id number] [place] [address]- 6[address] Oct, [facility] [place] [facility] [address] [id number] [place] [address]- 99[address] 14 Oct, 2013 [facility] [place] [facility] [address] [id number] [place] [address] 4[address] Oct, [facility] [place] [facility] [address] [id number] [place] [address] 4835 Oct, [facility] [place] [facility] [address] [id number] [place] [address]- 8075 Oct, [facility] [place] [facility] [address] [id number] [place] [address]- 7984 Oct, [facility] [place] [facility] [address] [id number] [place] [address] Oct, [facility] [place] [facility] [address] [id number] [place] [address] Sep, [facility] [place] [facility] [address] [id number] [place] [address]80 Sep, [facility] [place] [facility] [address] [id number] [place] [address] 8981 Sep, [facility] [place] [facility] [address] [id number] [place] [address] Sep, [facility] [place] [facility] [address] [id number] [place] [address] 2083 Sep, [facility] [place] [facility] [address] [id number] [place] [address] 1353 Sep, [facility] [place] [facility] [address] [id number] [place] [address] Sep, [facility] [place] [facility] [address] [id number] [place] [address] 18 Sep, 2013 [facility] [place] [facility] [address] [id number] [place] [address] 6315 17 Sep, 2013 [facility] [place] [facility] [address] [id number] [place] [address] 1434 Sep, [facility] [place] [facility] [address] [id number] [place] [address] 3030 Sep, [facility] [place] [facility] [address] [id number] [place] [address] 0622 Sep, [facility] [place] [facility] [address] [id number] [place] [address]- 0000 Sep, [facility] [place] [facility] [address] [id number] [place] [address] 8155 Sep, [facility] [place] [facility] [address] [id number] [place] [address]- 7315 Sep, [facility] [place] [facility] [address] [id number] [place] [address]- 72[address] Sep, [facility] [place] [facility] [address] [id number] [place] [address]- 7069 Sep, [facility] [place] [facility] [address] [id number] [place] [address]- 0781 Sep, [facility] [place] [facility] [address] [id number] [place] [address]- 9599 Sep, [facility] [place] [facility] [address] [id number] [address] Sep, [facility] [place] [facility] [address] [id number] [place] [address]- 1454 Sep, [facility] [place] [facility] [address] [id number] [place] [address]- 6025 Sep, [facility] [place] [facility] [address] [id number] [place] [address] 2178 August, [facility] [place] [facility] [address] [id number] [place] [address]- 9131 August, [facility] [place] [facility] [address] [id number] [place] [address]- 4[address] August, [facility] [place] [facility] [address] [id number] [place] [address]- 4096 August, [facility] [place] [facility] [address] [id number] [place] [address] 3016 August, [facility] [place] [facility] [address] [id number] [place] [address] 4149 August, [facility] [place] [facility] [address] [id number] [place] [address] 4981 August[facility] [place] [facility] [address] [id number] [place] [address] 1072 August, [facility] [place] [facility] [address] [id number] [place] [address]- 2675 August, [facility] [place] [facility] [address] [id number] [place] [address] August, [facility] [place] [facility] [address] [id number] [place] [address]- 8887 August, [facility] [place] [facility] [address] [id number] [place] [address]- 3073 August, [facility] [place] [facility] [address] [id number] [place] [address] 2183 August, [facility] [place] [facility] [address] [id number] [place] [address] 2314 August, [facility] [place] [facility] [address] [id number] [place] [address]- 6327 August, [facility] [place] [facility] [address] [id number] [place] [address]- 7896 August, [facility] [place] [facility] [address] [id number] [place] [address]- 4800 August, [facility] [place] [facility] [address] [id number] [place] [address]- 9607 August, [facility] [place] [facility] [address] [id number] [place] [address]- 5254 Jul, [facility] [place] [facility] [address] [id number] [place] [address]- 7805 Jul, [facility] [place] [facility] [address] [id number] [place] [address]- 6866 Jul, [facility] [place] [facility] [address] [id number] [place] [address]- 9028 Jul, [facility] [place] [facility] [address] [id number] [place] [address]- 2738 Jul, [facility] [place] [facility] [address] [id number] [place] [address]- 5920 Jul, [facility] [place] [facility] [address] [id number] [place] [address]- 0546 Jul, [facility] [place] [facility] [address] [id number] [place] [address]- 7596 Jul, [facility] [place] [facility] [address] [id number] [place] [address]- 8532 Jul, [facility] [place] [facility] [address] [id number] [place] [address]- 1882 Jul, [facility] [place] [facility] [address] [id number] [address] 6[address] Jul, [facility] [place] [facility] [address] [id number] [place] [address]- 0778 Jul, [facility] [place] [facility] [address] [id number] [place] [address]- 1991 Jul, [facility] [place] [facility] [address] [id number] [place] [address]- 6336 Jul, [facility] [place] [facility] [address] [id number] [place] [address]- 9819 17 Jul, 2013 [facility] [place] [facility] [address] [id number] [place] [address]- 8945 17 Jul, 2013 [facility] [place] [facility] [address] [id number] [place] [address]- 3934 17 Jul, 2013 [facility] [place] [facility] [address] [id number] [place] [address]- 2089 16 Jul, 2013 [facility] [place] [facility] [address] [id number] [place] [address]- 4482 16 Jul, 2013 [facility] [place] [facility] [address] [id number] [place] [address]- 0252 15 Jul, 2013 [facility] [place] [facility] [address] [id number] [place] [address]- 8131 15 Jul, 2013 [facility] [place] [facility] [address] [id number] [place] [address]- 3831 14 Jul, 2013 [facility] [place] [facility] [address] [id number] [place] [address]- 7704 14 Jul, 2013 [facility] [place] [facility] [address] [id number] [place] [address]- 7787 12 Jul, 2013 [facility] [place] [facility] [address] [id number] [place] [address]- 4098 12 Jul, 2013 [facility] [place] [facility] [address] [id number] [place] [address]- 6666 Jul, [facility] [place] [facility] [address] [id number] [place] [address]- 3213 Jul, [facility] [place] [facility] [address] [id number] [place] [address]- 8396 Jul, [facility] [place] [facility] [address] [id number] [place] [address]- 6828 Jul, [facility] [place] [facility] [address] [id number] [place] [address]- 0545 Jun, [facility] [place] [facility] [address] [id number] [place] [address]- 1182 17 Jun, 2013 [facility] [place] [facility] [address] [id number] [place] [address]- 6691 17 Jun, 2013 [facility] [place] [facility] [address] [id number] [place] [address]- 2949 17 Jun, 2013 [facility] [place] [facility] [address] [id number] [place] [address]- 3945 Jun, [facility] [place] [facility] [address] [id number] [place] [address]- 7182 13 Jun, 2013 [facility] [place] [facility] [address] [id number] [place] [address]- 2850 11 Jun, 2013 [facility] [place] [facility] [address] [id number] [place] [address]- 2792 Jun, [facility] [place] [facility] [address] [id number] [place] [address]- 2162 Jun, [facility] [place] [facility] [address] [id number] [place] [address]- 2168 Jun, [facility] [place] [facility] [address] [id number] [place] [address]- 0839 Jun, [facility] [place] [facility] [address] [id number] [place] [address]- 9896 Jun, [facility] [place] [facility] [address] [id number] [place] [address]- 2630 May, [facility] [place] [facility] [address] [id number] [place] [address]- 7898 May, [facility] [place] [facility] [address] [id number] [place] [address]- 4296 May, [facility] [place] [facility] [address] [id number] [place] [address]- 1016 May, [facility] [place] [facility] [address] [id number] [place] [address]- 5061 05 May, 2013 [facility] [place] [facility] [address] [id number] [place] [address] May, [facility] [place] [facility] [address] [id number] [place] [address]- 9836 May, [facility] [place] [facility] [address] [id number] [place] [address]- 6496 May, [facility] [place] [facility] [address] [id number] [place] [address]- 8502 May, [facility] [place] [facility] [address] [id number] [place] [address]- 0193 May, [facility] [place] [facility] [address] [id number] [place] [address]- 9056 Apr, [facility] [place] [facility] [address] [id number] [place] [address]- 5402 Apr, [facility] [place] [facility] [address] [id number] [place] [address]- 0966 Apr, [facility] [place] [facility] [address] [id number] [place] [address]- 6511 Apr, [facility] [place] [facility] [address] [id number] [place] [address]- 1680 Apr, [facility] [place] [facility] [address] [id number] [place] [address]- 3963 Apr, [facility] [place] [facility] [address] [id number] [place] [address]- 0986 Apr, [facility] [place] [facility] [address] [id number] [place] [address]- 1708 Apr, [facility] [place] [facility] [address] [id number] [place] [address]- 2237 Apr, [facility] [place] [facility] [address] [id number] [place] [address] Apr, [facility] [address] [id number] [place] [address]- 3402 Mar, [facility] [place] [facility] [address] [id number] [place] [address] Mar, [facility] [place] [facility] [address] [id number] [place] [address]- 4175 Mar, [facility] [place] [facility] [address] [id number] [place] [address]- 8188 Mar, [facility] [place] [facility] [address] [id number] [place] [address]- 5979 Mar, [facility] [place] [facility] [address] [id number] [place] [address]- 6596 Mar, [facility] [place] [facility] [address] [id number] [place] [address]- 9052 Feb, [facility] [place] [facility] [address] [id number], [place] [address]- 6850 Feb, [facility] [place] [facility] [address] [id number] [place] [address]- 4672 Feb, [facility] [place] [facility] [address] [id number], [place] [address]- 5339 Jan, [facility] [place] [facility] [address] [id number], [place] [address]- 9874 30 Jan, 2013 [facility] [place] [facility] [address] [id number], [place] [address]- 4788 Jan, [facility] [place] [facility] [address] [id number], [place] [address]- 7687 Jan, [facility] [place] [facility] [address] [id number], [place] [address]- 5566 15 Jan, 2013 [facility] [place] [facility] [address] [id number], [place] [address]- 1629 Jan, [facility] [place] [facility] [address] [id number], [place] [address]- 7077 Jan, [facility] [place] [facility] [address] [id number] [place] [address]- 9547 Jan, [facility] [place] [facility] [address] [id number] [place] [address]- 6865 Jan, [facility] [place] [facility] [address] [id number] [place] [address]- 1776 Jan, [facility] [place] [facility] [address] [id number] [place] [address]- 5085 30 Dec, 2012 [facility] [place] [facility] [address] [id number] [place] [address]- 2645 Dec, [facility] [place] [facility] [address] [id number] [place] [address]- 4496 Dec, [facility] [place] [facility] [address] [id number] [place] [address]- 4108 Dec, [facility] [place] [facility] [address] [id number] [place] [address]- 5111 Dec, [facility] [place] [facility] [address] [id number] [place] [address]- 1912 Dec, [facility] [place] [facility] [address] [id number] [place] [address]- 8831 Nov, [facility] [place] [facility] [address] [id number] [place] [address]- 2022 Nov, [facility] [place] [facility] [address] [id number] [place] [address]- 254 Nov, [facility] [place] [facility] [address] [id number] [place] [address]- 1252 Nov, [facility] [place] [facility] [address] [id number] [place] [address]- 5654 Nov, [facility] [place] [facility] [address] [id number] [place] [address]- 9516 Nov, [facility] [place] [facility] [address] [id number] [place] [address]- 7597 Nov, [facility] [place] [facility] [address] [id number] [place] [address]- 8946 Nov, [facility] [place] [facility] [address] [id number] [place] [address]- 1396 Nov, [facility] [place] [facility] [address] [id number] [place] [address]- 0858 Nov, [facility] [place] [facility] [address] [id number] [place] [address]- 3186 Nov, [facility] [place] [facility] [address] [id number] [place] [address]- 2115 Nov, [facility] [place] [facility] [address] [id number] [place] [address]- 9810 Oct, [facility] [place] [facility] [address] [id number] [place] [address]- 8585 Oct, [facility] [place] [facility] [address] [id number] [place] [address]- 6795 Oct, [facility] [place] [facility] [address] [id number] [place] [address]- 8482 Sep, [facility] [place] [facility] [address] [id number] [place] [address]- 2109 Sep, [facility] [place] [facility] [address] [id number] [place] [address]- 0019 Sep, [facility] [place] [facility] [address] [id number] [place] [address]- 8807 August, [facility] [place] [facility] [address] [id number] [place] [address]- 0622 August, [facility] [place] [facility] [address] [id number] [place] [address]- 5786 August, [facility] [place] [facility] [address] [id number] [place] [address]- 6723 August, [facility] [address] [id number] [place] [address]- 5039 August, [facility] [place] [facility] [address] [id number] [place] [address]- 3401 August, [facility] [address] [id number] [place] [address]- 1598 Jul, [facility] [place] [facility] [address] [id number] [place] [address]- 7037 Jul, [facility] [address] [id number] [place] [address]- 0667 Jul, [facility] [address] [id number] [place] [address]- 0092 Jul, [facility] [address] [id number] [place] [address]- 4395 Jul, [facility] [place] [facility] [address] [id number] [place] [address]- 3421 Jul, [facility] [place] [facility] [address] [id number] [place] [address]- 7586 Jun, [facility] [place] [facility] [address] [id number] [place] [address]- 9097 Jun, [facility] [place] [facility] [address] [id number] [place] [address]- 6674 Jun, [facility] [place] [facility] [address] [id number] [address]- 5732 14 Jun, 2012 [facility] [place] [facility] [address] [id number] [place] [address]- 4888 04 Jun, 2012 [facility] [place] [facility] [address] [id number] [place] [address]- 7677 May, [facility] [place] [facility] [address] [id number] [place] [address]- 1103 May, [facility] [place] [facility] [address] [id number] [place] [address]- 9452 11 May, 2012 [facility] [address] [id number] [place] [address]- 3725 08 May, 2012 [facility] [address] [id number] [place] [address]- 6336 Apr, [facility] [address] [id number] [place] [address]- 4119 Apr, [facility] [address] [id number] [place] [address]- 6008 Apr, [facility] [address] [id number] [place] [address]- 9396 Mar, [facility] [address] [id number] [place] [address]- 8919 Mar, [facility] [address] [id number] [place] [address]- 6946 Mar, [facility] [address] [id number] [place] [address]- 7045 Mar, [facility] [address] [id number] [place] [address]- 2326 Mar, [facility] [address] [id number] [place] 3791 Mar, [facility] [address] [id number] [place] [address] 2546 Mar, [facility] [address] [id number] [place] [address]- 2546 Mar, [facility] [address] [id number] [place] [address]- 2491 Feb, [facility] [address] [id number] [place] [address]- 2546 Feb, [facility] [address] [id number] [place] [address]- 7783 Feb, [facility] [place] [facility] [address] [id number] [place] [address]- 6625 Feb, [facility] [place] [facility] [address] [id number] [place] [address]- 1724 Feb, [facility] [place] [facility] [address] [id number] [place] [address]- 2066 Feb, [facility] [place] [facility] [address] [id number] [place] [address]- 7703 Feb, [facility] [place] [facility] [address] [id number] [place] [address]- 8660 Feb, [facility] [place] [facility] [address] [id number] [place] [address]- 4619 Feb, [facility] [place] [facility] [address] [facility] [id number] [place] [address]- 1029 Feb, [facility] [place] [facility] [address] [id number], [place] [address]- 5434 Feb, [facility] [place] [facility] [address] [id number] [place] [address]- 4518 Feb, [facility] [place] [facility] [address] [facility] [id number], [place] [address]- 5331 Feb, [facility] [place] [facility] [address] [facility] [id number], [place] [address] Feb, [facility] [place] [facility] [address] [id number], [place] [address] Feb, [facility] [place] [facility] [address] [id number], [place] [address] Feb, [facility] [place] [facility] [address] [id number] [address] Feb, [facility] [place] [facility] [address] [facility] [id number], [place] [address] Feb, [facility] [place] [facility] [address] [id number], [place] [address] 23 Jan, 2012 [facility] [place] [facility] [address] [id number] [place] [address] 60[address] 22 Jan, 2012 [facility] [place] [facility] [address] [id number] [place] [address] 22 Jan, 2012 [facility] [place] [facility] [address] [id number] [place] [address] 20 Jan, 2012 [facility] [place] [facility] [address] [id number] [place] [address] 20 Jan, 2012 [facility] [place] [facility] [address] [id number] [place] [address] 19 Jan, 2012 [facility] [place] [facility] [address] [id number] [place] [address] 1855 18 Jan, 2012 [facility] [place] [facility] [address] [facility] [id number] [place] [address] 3660 18 Jan, 2012 [facility] [place] [facility] [address] [facility] [id number] [place] [address] 1156 15 Jan, 2012 [facility] [place] [facility] [address] [facility] [id number] [place] [address] 15 Jan, 2012 [facility] [place] [facility] [address] [facility] [id number], [place] [address] 11 Jan, 2012 [facility] [place] [facility] [address] [facility] [id number], [place] [address] 62[address] 11 Jan, 2012 [facility] [place] [facility] [address] [facility] [id number][place] [address] 1669 10 Jan, 2012 [facility] [place] [facility] [address] [id number] [place] [address]88 09 Jan, 2012 [facility] [place] [facility] [address] [facility] [id number], [place] [address] 02 Jan, 2012 [facility] [place] [facility] [address] [facility] [id number] [place] [address] 3119 29 Dec, 2011 [facility] [place] [facility] [address] [id number] [place] [address] 28 Dec, 2011 [facility] [place] [facility] [address] [id number] [place] [address] 27 Dec, 2011 [facility] [place] [facility] [address] [id number] [place] [address] Dec, [facility] [place] [facility] [address] [id number] [place] [address] 29[address] Nov, [facility] [place] [facility] [address] [id number] [place] [address]185 Nov, [facility] [place] [facility] [address] [id number] [place] [address] 4[address] Nov, [facility] [place] [facility] [address] [id number] [place] [address] 160[address] Nov, [facility] [place] [facility] [address] [id number] [place] [address] 96[address] Nov, [facility] [place] [facility] [address] [id number] [place] [address] 39[address] Nov, [facility] [place] [facility] [address] [id number] [place] [address] Nov, [facility] [place] [facility] [address] [id number] [place] [address] 6981 Nov, [facility] [place] [facility] [address] [id number] [place] [address] 7160 Nov, [facility] [place] [facility] [address] [id number] [place] [address] 2547 Nov, [facility] [place] [facility] [address] [id number] [place] [address] 8475 Nov, [facility] [place] [facility] [address] [id number] [place] [address] Oct, [facility] [place] [facility] [address] [id number] [place] [address]- 7982 Oct, [facility] [place] [facility] [address] [id number] [place] [address] 0948 Oct, [facility] [place] [facility] [address] [id number] [place] [address] 2118 Oct, [facility] [place] [facility] [address] [id number] [place] [address] 3604 Oct, [facility] [place] [facility] [address] [id number] [place] [address] 0411 Oct, [facility] [place] [facility] [address] [id number] [place] [address]- 2591 Oct, [facility] [place] [facility] [address] [id number] [place] [address] 8233 Oct, [facility] [place] [facility] [address] [id number] [place] [address]- 78[address] Sep, [facility] [place] [facility] [address] [id number] [place] [address] 5821 Sep, [facility] [place] [facility] [address] [id number] [place] [address] 2518 Sep, [facility] [place] [facility] [address] [id number] [place] [address]- 5[address] Sep, [facility] [place] [facility] [address] [id number] [place] [address]- 8585 Sep, [facility] [place] [facility] [address] [id number] [place] [address]- 7599 Sep, [facility] [place] [facility] [address] [id number] [place] [address]- 7265 Sep, [facility] [place] [facility] [address] [id number] [place] [address] August, [facility] [place] [facility] [address] [id number] [place] [address] 7096 August, [facility] [place] [facility] [address] [id number] [place] [address]- 8498 22 Aug, 2011 [facility] [address] [id number] [place] [address]- 5918 16 Aug, 2011 [facility] [place] [facility] [address] [id number] [place] [address]- 8246 August, [facility] [address] [id number] [place] [address]- 8956 August, [facility] [place] [facility] [address] [id number] [place] [address] 9152 August, [facility] [address] [id number] [place] [address]- 59[address] August, [facility] [address] [id number] [place] [address]- 7599 28 Jul, 2011 [facility] [address] [id number] [place] [address]- 5762 17 Jul, 2011 [facility] [address] [id number] [place] [address]- 2075 13 Jul, 2011 [facility] [address] [id number] [place] [address] 11 Jul, 2011 [facility] [address] [id number] [place] [address]- 368[address] 05 Jul, 2011 [facility] [address] [id number] [place] [address]- 4958 28 Jun, 2011 [facility] [place] [facility] [address] [id number] [place] [address]- 8994 2011 [facility] [place] [facility] [address] [id number] [place] [address]- 1692 20 Jun, 2011 [facility] [place] [facility] [address] [id number] [place] [address]- 7310 19 Jun, 2011 [facility] [place] [facility] [address] [id number] [place] [address]- 0361 12 Jun, 2011 [facility] [place] [facility] [address] [id number] [place] [address]- 2314 Jun, [facility] [place] [facility] [address] [id number] [place] [address]- 4776 Jun, [facility] [place] [facility] [address] [id number] [place] [address]- 7026 07 Jun, 2011 [facility] [place] [facility] [address] [id number] [place] [address]- 3796 Jun, [facility] [place] [facility] [address] [id number] [place] [address]- 0218 27 May, 2011 [facility] [place] [facility] [address] [id number] [place] [address]- 6966 24 May, 2011 [facility] [place] [facility] [address] [id number] [place] [address]- 3586 May, [facility] [place] [facility] [address] [address] [id number] [place] [address] May, [facility] [place] [facility] [address] [id number] [place] [address] May, [facility] [place] [facility] [address] [id number] [place] [address] May, [facility] [place] [facility] [address] [id number] [place] [address] May, [facility] [place] [facility] [address] [id number] [place] [address] May, [facility] [place] [facility] [address] [id number] [place] [address] Apr, [facility] [place] [facility] [address] [id number] [place] [address] Apr, [facility] [place] [facility] [address] [id number] [place] [address] Apr, [facility] [place] [facility] [address] [id number] [place] [address] Apr, [facility] [address] [id number] [place] [address] Apr, [facility] [address] [id number] [place] [address] Apr, [facility] [address] [id number] [place] [address] Mar, [facility] [address] [id number] [place] [address] 29 Mar, 2011 [facility] [address] [id number] [place] [address] Mar, [facility] [address] [id number] [place] [address] Mar, [facility] [address] [id number] [place] [address] 15 Mar, [address] [facility] [address] [id number] [place] [address] Mar, [facility] [address] [id number] [place] [address] Mar, [facility] [address] [id number] [place] [address] Mar, [facility] [address] [id number] [place] [address] Mar, [facility] [place] [facility] [address] [id number] [place] [address] Mar, [facility] [place] [facility] [address] [id number] [place] [address] 05 Mar, 2011 [facility] [place] [facility] [address] [id number] [place] [address] 05 Mar, 2011 [facility] [address] [id number] [place] [address] 05 Mar, 2011 [facility] [place] [facility] [address] [id number] [place] [address] Feb, [facility] [place] [facility] [address] [id number] [place] [address] Feb, [facility] [place] [facility] [address] [id number] [place] [address] Feb, [facility] [place] [facility] [address] [id number] [place] [address] Feb, [facility] [place] [facility] [address] [id number] [place] [address] Feb, [facility] [place] [facility] [address] [id number] [place] [address] Feb, [facility] [place] [facility] [address] [id number] [place] [address] Feb, [facility] [place] [facility] [address] [id number] [place] [address] Jan, [facility] [place] [facility] [address] [id number] [place] [address] Jan, [facility] [place] [facility] [address] [id number] [place] [address] Jan, [facility] [place] [facility] [address] [id number] [place] [address] Nov, [facility] [place] [facility] [address] [id number] [place] [address] Mar, [facility] [place] [facility] [address] [id number] [place] [address] Mar, [facility] [place] [facility] [address] [id number] [place] [address] Mar, [facility] [place] [facility] [address] [id number] [place] [address] Mar, [facility] [place] [facility] [address] [id number] [address] Mar, [facility] [address] [facility] [id number], [place] [address] 30 Feb, 2010 [facility] [address] [id number], [place] [address] Feb, [facility] [address] [facility] [id number][place] [address] Feb, [facility] [address] [id number], [place] [address] Feb, [facility] [address] [facility] [id number], [place] [address] Feb, [facility] [address] [id number], [place] [address] Feb, IMMUNIZATIONS No Known Immunizations SOCIAL HISTORY Never Assessed REASON FOR VISIT triage - CBowmanRN PLAN OF CARE VITAL SIGNS MEDICATIONS Unknown [...]
--- OUTSIDE RECORDS SUMMARY | 2017-12-22 04:35 | XMS REPORT ---
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 [facility] [address] [id number] [place] [address]- 6140 Jun, [facility] [place] [facility] [address] [id number] [place] [address]- 1906 Jun, [facility] [place] [facility] [address] [id number] [place] [address]- 0859 Jun, [facility] [place] [facility] [address] [id number] [place] [address]- 2541 Jun, [facility] [place] [facility] [address] [id number] [place] [address]- 3728 23 Jun, 2014 [facility] [place] [facility] [address] [id number] [place] [address]- 2295 23 Jun, 2014 [facility] [place] [facility] [address] [id number] [place] [address]- 9209 19 Jun, 2014 [facility] [place] [facility] [address] [id number] [place] [address]- 1278 19 Jun, 2014 [facility] [place] [facility] [address] [id number] [place] [address]- 9733 19 Jun, 2014 [facility] [place] [facility] [address] [id number] [place] [address]- 4306 19 Jun, 2014 [facility] [place] [facility] [address] [id number] [place] [address]- 3690 18 Jun, 2014 [facility] [place] [facility] [address] [id number] [place] [address]- 7341 18 Jun, 2014 [facility] [place] [facility] [address] [id number] [place] [address]- 5520 18 Jun, 2014 [facility] [place] [facility] [address] [id number] [place] [address]- 2445 18 Jun, 2014 [facility] [place] [facility] [address] [id number] [place] [address]- 6157 17 Jun, 2014 [facility] [place] [facility] [address] [id number] [place] [address]- 0717 17 Jun, 2014 [facility] [place] [facility] [address] [id number] [place] [address]- 2683 17 Jun, 2014 [facility] [place] [facility] [address] [id number] [place] [address]- 6001 17 Jun, 2014 [facility] [place] [facility] [address] [id number] [place] [address]- 9330 13 Jun, 2014 [facility] [place] [facility] [address] [id number] [place] [address]- 5184 13 Jun, 2014 [facility] [place] [facility] [address] [id number] [place] [address]- 0465 Jun, [facility] [place] [facility] [address] [id number] [place] [address]- 8548 Jun, [facility] [place] [facility] [address] [id number] [place] [address]- 0474 Jun, [facility] [place] [facility] [address] [id number] [place] [address]- 3259 Jun, [facility] [place] [facility] [address] [id number] [place] [address]- 9825 Jun, [facility] [place] [facility] [address] [id number] [place] [address]- 1819 Jun, [facility] [place] [facility] [address] [facility] [id number] [place] [address]- 9479 Jun, [facility] [place] [facility] [address] [id number] [place] [address]- 6840 Jun, [facility] [place] [facility] [address] [id number] [place] [address]- 7476 Jun, [facility] [place] [facility] [address] [facility] [id number] [place] [address]- 1385 Jun, [facility] [place] [facility] [address] [id number] [place] [address]- 3295 Jun, [facility] [place] [facility] [address] [id number] [place] [address]- 2760 Jun, [facility] [place] [facility] [address] [id number] [place] [address]- 8964 May, [facility] [place] [facility] [address] [id number] [place] [address]- 7930 May, [facility] [place] [facility] [address] [facility] [id number] [place] [address]- 6022 May, [facility] [place] [facility] [address] [id number] [place] [address]- 7263 May, 2014 [facility] [place] [facility] [address] [id number] [place] [address]- 0736 May, 2014 [facility] [place] [facility] [address] [id number] [place] [address] 2546 May, 2014 [facility] [place] [facility] [address] [id number] [place] [address]- 3112 May, 2014 [facility] [place] [facility] [address] [id number] [place] [address]- 1969 May, 2014 [facility] [place] [facility] [address] [id number] [place] [address]- 9176 May, 2014 [facility] [place] [facility] [address] [facility] [id number] [place] [address]- 4861 May, 2014 [facility] [place] [facility] [address] [id number] [place] [address]- 0502 May, 2014 [facility] [place] [facility] [address] [facility] [id number] [place] [address]- 5524 May, 2014 [facility] [place] [facility] [address] [facility] [id number] [place] [address]- 6167 May, 2014 [facility] [place] [facility] [address] [facility] [id number] [place] [address]- 8899 May, 2014 [facility] [place] [facility] [address] [id number], [place] [address]- 2545 May, 2014 [facility] [place] [facility] [address] [facility] [id number] [place] [address]- 3969 May, 2014 [facility] [place] [facility] [address] [facility] [id number] [place] [address]- 6065 Apr, [facility] [place] [facility] [address] [facility] [id number] [place] [address]- 6196 Apr, [facility] [place] [facility] [address] [facility] [id number] [place] [address]- 8216 Apr, [facility] [address] [id number] [place] [address]- 1379 Apr, [facility] [place] [facility] [address] [id number] [place] [address]- 4206 Apr, [facility] [place] [facility] [address] [id number] [place] [address]- 8483 Apr, [facility] [place] [facility] [address] [id number] [place] [address]- 5768 Apr, [facility] [place] [facility] [address] [id number] [place] [address]- 8447 Apr, [facility] [place] [facility] [address] [id number] [place] [address]- 5349 Apr, [facility] [place] [facility] [address] [id number] [place] [address]- 0517 Apr, [facility] [place] [facility] [address] [id number] [place] [address]- 6159 Apr, [facility] [place] [facility] [address] [id number] [place] [address]- 0443 Apr, [facility] [place] [facility] [address] [id number] [place] [address]- 1971 Apr, [facility] [place] [facility] [address] [id number] [place] [address]- 9938 Apr, [facility] [place] [facility] [address] [id number] [place] [address]- 0235 Apr, [facility] [place] [facility] [address] [id number] [place] [address]- 1623 Mar, [facility] [place] [facility] [address] [id number] [place] [address]- 2388 Mar, [facility] [place] [facility] [address] [id number] [place] [address]- 4150 Mar, [facility] [place] [facility] [address] [id number] [place] [address]- 7608 Mar, [facility] [place] [facility] [address] [id number] [place] [address]- 6792 Mar, [facility] [place] [facility] [address] [id number] [place] [address]- 9017 Mar, [facility] [place] [facility] [address] [id number] [place] [address]- 9121 Mar, [facility] [place] [facility] [address] [id number] [place] [address]- 1677 Mar, [facility] [place] [facility] [address] [id number] [place] [address]- 6160 Mar, [facility] [place] [facility] [address] [id number] [place] [address]- 6634 Mar, [facility] [place] [facility] [address] [id number] [place] [address]- 1485 Mar, [facility] [place] [facility] [address] [id number] [place] [address]- 6051 Mar, [facility] [place] [facility] [address] [id number] [place] [address]- 3762 Mar, [facility] [place] [facility] [address] [id number] [place] [address]- 2138 Mar, [facility] [place] [facility] [address] [id number] [place] [address]- 0016 Mar, [facility] [place] [facility] [address] [id number] [place] [address]- 2316 Mar, [facility] [place] [facility] [address] [id number] [place] [address]- 7977 Mar, [facility] [place] [facility] [address] [id number] [place] 5824 Mar, [facility] [place] [facility] [address] [id number] [place] [address]- 4662 Feb, [facility] [place] [facility] [address] [id number] [place] [address]- 3506 Feb, [facility] [place] [facility] [address] [id number] [place] [address]- 5582 Feb, [facility] [place] [facility] [address] [id number] [place] [address]- 4548 Feb, [facility] [place] [facility] [address] [id number] [place] [address]- 1584 Feb, [facility] [place] [facility] [address] [id number] [place] [address] Feb, [facility] [place] [facility] [address] [id number] [place] [address] Feb, [facility] [place] [facility] [address] [id number] [place] [address] Feb, [facility] [place] [facility] [address] [id number] [place] [address] Jan, [facility] [place] [facility] [address] [id number] [place] [address] Jan, [facility] [place] [facility] [address] [id number] [place] [address] Jan, [facility] [place] [facility] [address] [id number], [place] [address] Jan, [facility] [place] [facility] [address] [id number], [place] [address] 31 Jan, 2014 [facility] [place] [facility] [address] [id number] [place] [address] 31 Jan, 2014 [facility] [place] [facility] [address] [id number] [place] [address]- [address] Jan, [facility] [place] [facility] [address] [id number] [place] [address] Jan, [facility] [place] [facility] [address] [id number] [place] [address] 7973 24 Jan, 2014 [facility] [place] [facility] [address] [id number] [place] [address] 24 Jan, 2014 [facility] [place] [facility] [address] [id number] [place] [address]- [address] Jan, [facility] [place] [facility] [address] [id number] [place] [address] Jan, [facility] [place] [facility] [address] [id number] [place] [address]- [address] Jan, [facility] [place] [facility] [address] [id number] [place] [address]- [address] Jan, [facility] [place] [facility] [address] [id number] [place] [address]- [address] 16 Jan, 2014 [facility] [place] [facility] [address] [id number] [place] [address]- [address] 16 Jan, 2014 [facility] [place] [facility] [address] [id number] [place] [address]- [address] Jan, [facility] [place] [facility] [address] [id number] [place] [address]- 2469 13 Jan, 2014 [facility] [place] [facility] [address] [id number] [place] [address]- [address] 29 Dec, 2013 [facility] [place] [facility] [address] [id number] [place] [address]- [address]41 29 Dec, 2013 [facility] [place] [facility] [address] [id number] [place] [address]- [address]42 26 Sep, 2013 [facility] [place] [facility] [address] [id number] [place] [address]- 1787 26 Dec, 2013 [facility] [place] [facility] [address] [id number] [place] [address]- [address]169 26 Dec, 2013 [facility] [place] [facility] [address] [id number] [place] [address]- 0418 26 Dec, 2013 [facility] [place] [facility] [address] [id number] [place] [address]- [address] 23 Dec, 2013 [facility] [place] [facility] [address] [id number] [place] [address]- 2746 23 Dec, 2013 [facility] [place] [facility] [address] [id number] [place] [address]- 5547 22 Dec, 2013 [facility] [place] [facility] [address] [id number] [place] [address] 254 22 Dec, 2013 [facility] [place] [facility] [address] [id number] [place] [address]- [address]370 16 Dec, 2013 [facility] [place] [facility] [address] [id number] [place] [address]- 2970 16 Dec, 2013 [facility] [place] [facility] [address] [id number] [place] [address]- 2799 15 Dec, 2013 [facility] [place] [facility] [address] [id number] [place] [address]- 4110 15 Dec, 2013 [facility] [place] [facility] [address] [id number] [place] [address]- 9728 09 Dec, 2013 [facility] [place] [facility] [address] [id number] [place] [address]- 2712 Dec, [facility] [place] [facility] [address] [id number] [place] [address]47 Dec, [facility] [place] [facility] [address] [id number] [place] [address]- 39[address] Nov, [facility] [place] [facility] [address] [id number] [place] [address]- 28[address] Nov, [facility] [place] [facility] [address] [id number] [place] [address]- [address] Nov, [facility] [place] [facility] [address] [id number] [place] [address]- 74[address] Nov, [facility] [place] [facility] [address] [id number] [place] [address]- [address] Nov, [facility] [place] [facility] [address] [id number] [place] [address]- 8980 Nov, [facility] [place] [facility] [address] [id number] [place] [address]- 2069 Nov, [facility] [place] [facility] [address] [id number] [place] [address]- 2004 Nov, [facility] [place] [facility] [address] [id number] [place] [address]- 9596 Nov, [facility] [place] [facility] [address] [id number] [place] [address]- 7297 Nov, [facility] [place] [facility] [address] [id number] [place] [address]- 32[address] Nov, [facility] [place] [facility] [address] [id number] [place] [address]- 0482 Nov, [facility] [place] [facility] [address] [id number] [place] [address]- 09[address] Nov, [facility] [place] [facility] [address] [id number] [place] [address]- 8561 Nov, [facility] [place] [facility] [address] [id number] [place] [address]- 7598 Nov, [facility] [place] [facility] [address] [id number] [place] [address]- 0[address] Nov, [facility] [place] [facility] [address] [id number] [place] [address]- 4[address] Nov, [facility] [place] [facility] [address] [id number] [place] [address]- 8351 Nov, [facility] [place] [facility] [address] [id number] [place] [address] Nov, [facility] [place] [facility] [address] [id number] [place] [address] 7[address] Nov, [facility] [place] [facility] [address] [id number] [place] [address]- 6784 Nov, [facility] [place] [facility] [address] [id number] [place] [address]- 7356 Oct, [facility] [place] [facility] [address] [id number] [place] [address] 1736 Oct, [facility] [place] [facility] [address] [id number] [place] [address] 1935 Oct, [facility] [place] [facility] [address] [id number] [place] [address] 5006 Oct, [facility] [place] [facility] [address] [id number] [place] [address]- 8114 Oct, [facility] [place] [facility] [address] [id number] [place] [address]- 3618 Oct, [facility] [place] [facility] [address] [id number] [place] [address]- 8360 Oct, [facility] [place] [facility] [address] [id number] [place] [address]- 8532 Oct, [facility] [place] [facility] [address] [id number] [place] [address]- 1425 Oct, [facility] [place] [facility] [address] [id number] [place] [address]- 1080 Oct, [facility] [place] [facility] [address] [id number] [place] [address]- 7498 Oct, [facility] [place] [facility] [address] [id number] [place] [address]- 4718 Oct, [facility] [place] [facility] [address] [id number] [place] [address]- 2650 Oct, [facility] [place] [facility] [address] [id number] [place] [address]- 0874 Oct, [facility] [place] [facility] [address] [id number] [place] [address]- 1176 Oct, [facility] [place] [facility] [address] [id number] [place] [address]- 2718 30 Sep, 2013 [facility] [place] [facility] [address] [id number] [place] [address]- 7549 30 Sep, 2013 [facility] [place] [facility] [address] [facility] [id number] [place] [address]- 2471 Sep, [facility] [place] [facility] [address] [id number] [place] [address]- 9569 Sep, [facility] [place] [facility] [address] [id number] [place] [address]- 2000 Sep, [facility] [place] [facility] [address] [id number] [place] [address]- 0021 Sep, [facility] [place] [facility] [address] [id number] [place] [address]- 2766 Sep, [facility] [place] [facility] [address] [id number], [place] [address]- 6[address] 18 Sep, 2013 [facility] [place] [facility] [address] [id number] [place] [address]- 0067 17 Sep, 2013 [facility] [place] [facility] [address] [id number] [place] [address]- 6788 16 Sep, 2013 [facility] [place] [facility] [address] [id number], [place] [address]- 9937 16 Sep, 2013 [facility] [place] [facility] [address] [id number], [place] [address]- 1080 16 Sep, 2013 [facility] [place] [facility] [address] [id number] [place] [address]- 9167 Sep, [facility] [place] [facility] [address] [id number], [place] [address]- 5671 Sep, [facility] [place] [facility] [address] [id number] [place] [address]- 4393 Sep, [facility] [place] [facility] [address] [id number] [place] [address]- 4999 Sep, [facility] [place] [facility] [address] [id number] [place] [address]- 7790 Sep, [facility] [place] [facility] [address] [id number] [place] [address]- 8111 Sep, [facility] [place] [facility] [address] [id number] [place] [address]- 3481 Sep, [facility] [place] [facility] [address] [id number] [place] [address]- 7589 Sep, [facility] [place] [facility] [address] [id number] [place] [address]- 6760 Sep, [facility] [place] [facility] [address] [id number] [place] [address]- 1552 Sep, [facility] [place] [facility] [address] [id number] [place] [address]- 5321 August, [facility] [place] [facility] [address] [id number] [place] [address]- 5161 August, [facility] [place] [facility] [address] [id number] [place] [address]- 6087 August, [facility] [place] [facility] [address] [id number] [place] [address]- 2222 August, [facility] [place] [facility] [address] [id number] [place] [address]- 5440 August, [facility] [place] [facility] [address] [id number] [place] [address]- 8394 August, [facility] [place] [facility] [address] [id number] [place] [address]- 8395 August, [facility] [place] [facility] [address] [id number] [place] [address]- 1040 August, [facility] [place] [facility] [address] [id number] [place] [address]- 3213 August, [facility] [place] [facility] [address] [id number] [place] [address]- 1643 August, [facility] [address] [id number] [place] [address]- 8589 August, [facility] [place] [facility] [address] [id number] [place] [address] August, [facility] [place] [facility] [address] [id number] [place] [address]- 8915 August, [facility] [address] [id number] [place] [address]- 9954 August, [facility] [place] [facility] [address] [id number] [place] [address]- 9435 August, [facility] [address] [id number] [place] [address]- 4617 August, [facility] [address] [id number] [place] [address]- 6871 August, [facility] [place] [facility] [address] [id number] [place] [address]- 1259 August, [facility] [place] [facility] [address] [id number] [place] [address]- 5079 Jul, [facility] [place] [facility] [address] [id number] [place] [address]- 1431 Jul, [facility] [place] [facility] [address] [id number] [place] [address]- 7058 Jul, [facility] [place] [facility] [address] [id number] [place] [address]- 7916 Jul, [facility] [place] [facility] [address] [id number] [place] [address]- 5519 Jul, [facility] [place] [facility] [address] [id number] [place] [address]- 0579 Jul, [facility] [place] [facility] [address] [id number] [place] [address]- 6941 22 Jul, 2013 [facility] [place] [facility] [address] [id number] [place] [address]- 2903 22 Jul, 2013 [facility] [place] [facility] [address] [id number] [place] [address]- 2787 22 Jul, 2013 [facility] [place] [facility] [address] [id number] [place] [address]- 7932 Jul, [facility] [place] [facility] [address] [id number] [place] [address]- 9285 Jul, [facility] [place] [facility] [address] [id number] [place] [address]- 6632 18 Jul, 2013 [facility] [place] [facility] [address] [id number] [place] [address]- 2812 18 Jul, 2013 [facility] [place] [facility] [address] [id number] [place] [address]- 4318 17 Jul, 2013 [facility] [place] [facility] [address] [id number] [place] [address]- 0760 17 Jul, 2013 [facility] [place] [facility] [address] [id number] [place] [address]- 2163 17 Jul, 2013 [facility] [place] [facility] [address] [id number] [place] [address]- 8901 17 Jul, 2013 [facility] [place] [facility] [address] [id number] [place] [address]- 6392 16 Jul, 2013 [facility] [place] [facility] [address] [id number] [place] [address]- 6745 16 Jul, 2013 [facility] [place] [facility] [address] [id number] [place] [address]- 6800 15 Jul, 2013 [facility] [place] [facility] [address] [id number] [place] [address]- 4606 15 Jul, 2013 [facility] [place] [facility] [address] [id number] [place] [address]- 3160 14 Jul, 2013 [facility] [place] [facility] [address] [id number] [place] [address]- 5392 14 Jul, 2013 [facility] [address] [id number] [place] [address]- 2187 12 Jul, 2013 [facility] [place] [facility] [address] [id number] [place] [address]- 4850 12 Jul, 2013 [facility] [address] [id number] [place] [address]- 2850 Jul, [facility] [place] [facility] [address] [id number] [place] [address]- 9432 Jul, [facility] [place] [facility] [address] [id number] [place] [address]- 6678 Jul, [facility] [place] [facility] [address] [id number] [place] [address]- 7029 Jul, [facility] [place] [facility] [address] [id number] [place] [address]- 7915 17 Jun, 2013 [facility] [address] [id number] [place] [address]- 8455 17 Jun, 2013 [facility] [place] [facility] [address] [id number] [place] [address]- 5799 17 Jun, 2013 [facility] [address] [id number] [place] [address]- 5117 17 Jun, 2013 [facility] [place] [facility] [address] [id number] [place] [address]- 0259 13 Jun, 2013 [facility] [place] [facility] [address] [id number] [place] [address]- 2518 13 Jun, 2013 [facility] [place] [facility] [address] [id number] [place] [address]- 4598 11 Jun, 2013 [facility] [place] [facility] [address] [id number] [place] [address]- 8252 11 Jun, 2013 [facility] [place] [facility] [address] [id number] [place] [address]- 9488 Jun, [facility] [place] [facility] [address] [id number] [place] [address]- 8065 Jun, [facility] [place] [facility] [address] [id number] [place] [address]- 2450 Jun, [facility] [place] [facility] [address] [id number] [place] [address]- 1139 Jun, [facility] [place] [facility] [address] [id number] [place] [address]- 0931 May, [facility] [place] [facility] [address] [id number] [place] [address]- 6462 May, [facility] [place] [facility] [address] [id number] [place] [address]- 7543 May, [facility] [place] [facility] [address] [facility] [id number] [place] [address]- 3387 May, [facility] [place] [facility] [address] [id number] [place] [address]- 8670 May, [facility] [place] [facility] [address] [id number] [place] [address]- 5626 May, [facility] [place] [facility] [address] [id number] [place] [address]- 2188 May, [facility] [place] [facility] [address] [id number] [place] [address]- 7236 May, [facility] [place] [facility] [address] [id number] [place] [address]- 5696 May, [facility] [place] [facility] [address] [id number] [place] [address]- 3366 May, [facility] [place] [facility] [address] [id number] [place] [address]- 0272 Apr, [facility] [place] [facility] [address] [facility] [id number] [place] [address]- 8596 Apr, [facility] [place] [facility] [address] [id number] [place] [address]- 1779 Apr, [facility] [address] [id number] [place] [address]- 7912 Apr, [facility] [place] [facility] [address] [id number] [place] [address]- 9804 Apr, [facility] [place] [facility] [address] [id number] [place] [address]- 7681 Apr, [facility] [place] [facility] [address] [id number] [place] [address]- 7922 Apr, [facility] [place] [facility] [address] [id number] [place] [address]- 2335 Apr, [facility] [place] [facility] [address] [id number] [place] [address]- 2644 Apr, [facility] [place] [facility] [address] [id number] [place] [address]- 6189 Apr, [facility] [address] [id number] [place] [address]- 3760 Mar, [facility] [place] [facility] [address] [id number] [place] [address]- 7757 Mar, [facility] [place] [facility] [address] [id number] [place] [address]- 1530 Mar, [facility] [place] [facility] [address] [id number] [place] [address]- 2285 Mar, [facility] [place] [facility] [address] [id number] [place] [address]- 6719 Mar, [facility] [place] [facility] [address] [id number] [place] [address]- 4886 Mar, [facility] [place] [facility] [address] [id number] [place] [address]- 4086 Feb, [facility] [place] [facility] [address] [id number] [place] [address]- 1198 Feb, [facility] [place] [facility] [address] [id number] [place] [address]- 1221 Feb, [facility] [place] [facility] [address] [id number] [place] [address]- 1077 Jan, [facility] [place] [facility] [address] [id number] [place] [address]- 9949 Jan, [facility] [place] [facility] [address] [id number] [place] [address]- 1667 Jan, [facility] [place] [facility] [address] [id number] [place] [address]- 9505 Jan, [facility] [place] [facility] [address] [id number] [place] [address]- 9621 Jan, [facility] [place] [facility] [address] [id number] [place] [address]- 6873 Jan, [facility] [place] [facility] [address] [id number], [place] [address]- 6462 Jan, [facility] [place] [facility] [address] [id number] [place] [address]- 8466 Jan, [facility] [place] [facility] [address] [id number], [place] [address]- 5267 Jan, [facility] [place] [facility] [address] [id number], [place] [address]- 8937 Jan, [facility] [place] [facility] [address] [id number], [place] [address]- 0801 30 Dec, 2012 [facility] [place] [facility] [address] [id number] [place] [address]- 8875 25 Dec, 2012 [facility] [place] [facility] [address] [id number], [place] [address]- 9148 Dec, [facility] [place] [facility] [address] [id number], [place] [address]- 0148 Dec, [facility] [place] [facility] [address] [id number] [place] [address]- 8399 Dec, [facility] [address] [id number] [place] [address]- 2753 Dec, [facility] [place] [facility] [address] [id number] [place] [address]- 1761 Nov, [facility] [place] [facility] [address] [id number] [place] [address]- 3739 Nov, [facility] [place] [facility] [address] [id number] [place] [address]- 3914 Nov, [facility] [place] [facility] [address] [id number] [place] [address]- 9916 Nov, [facility] [place] [facility] [address] [id number] [place] [address]- 4635 Nov, [facility] [place] [facility] [address] [id number] [place] [address]- 9727 Nov, [facility] [place] [facility] [address] [id number] [place] [address]- 0604 Nov, [facility] [place] [facility] [address] [id number] [place] [address]- 2059 Nov, [facility] [place] [facility] [address] [id number] [place] [address]- 0086 Nov, [facility] [place] [facility] [address] [id number] [place] [address]- 7146 Nov, [facility] [place] [facility] [address] [id number] [place] [address]- 2540 Nov, [facility] [place] [facility] [address] [id number] [place] [address]- 6548 Nov, [facility] [place] [facility] [address] [id number] [place] [address]- 3009 Oct, [facility] [place] [facility] [address] [id number] [place] [address]- 8873 Oct, [facility] [place] [facility] [address] [id number] [place] [address]- 4689 08 Oct, 2012 [facility] [address] [id number] [place] [address]- 0400 Sep, [facility] [place] [facility] [address] [id number] [place] [address]- 7590 Sep, [facility] [address] [id number] [place] [address]- 7388 Sep, [facility] [address] [id number] [place] [address]- 9897 August, [facility] [address] [id number] [place] [address]- 0332 August, [facility] [address] [id number] [place] [address]- 7439 August, [facility] [address] [id number] [place] [address]- 4771 August, [facility] [address] [id number] [place] [address]- 2280 August, [facility] [address] [id number] [place] [address]- 4278 August, [facility] [address] [id number] [place] [address]- 4701 Jul, [facility] [place] [facility] [address] [id number] [place] [address]- 2933 15 Jul, 2012 [facility] [place] [facility] [address] [id number] [place] [address]- 3752 11 Jul, 2012 [facility] [place] [facility] [address] [id number] [place] [address]- 9238 10 Jul, 2012 [facility] [place] [facility] [address] [id number] [place] [address]- 4112 04 Jul, 2012 [facility] [place] [facility] [address] [id number] [place] [address]- 9066 04 Jul, 2012 [facility] [address] [id number] [place] [address]- 0956 2012 [facility] [address] [id number] [place] [address]- 3345 20 Jun, 2012 [facility] [address] [facility] [id number] [place] [address]- 0606 18 Jun, 2012 [facility] [address] [id number] [place] [address]- 0175 14 Jun, 2012 [facility] [address] [id number] [place] [address]- 3983 04 Jun, 2012 [facility] [address] [facility] [id number] [place] [address]- 4158 13 May, 2012 [facility] [address] [facility] [id number] [place] [address]- 2834 12 May, 2012 [facility] [address] [id number] [place] [address]- 8142 11 May, 2012 [facility] [address] [id number] [place] [address]- 3077 08 May, 2012 [facility] [address] [facility] [id number] [place] [address]- 0088 17 Apr, 2012 [facility] [address] [id number] [place] [address]- 4553 Apr, [facility] [place] [facility] [address] [id number] [place] [address]- 5659 Apr, [facility] [place] [facility] [address] [id number] [place] [address]- 4089 Mar, [facility] [place] [facility] [address] [id number] [place] [address]- 7386 Mar, [facility] [place] [facility] [address] [facility] [id number] [place] [address]- 3881 Mar, [facility] [place] [facility] [address] [id number] [place] [address]88 29 Mar, 2012 [facility] [place] [facility] [address] [id number] [place] [address] Mar, [facility] [place] [facility] [address] [id number] [place] [address] Mar, [facility] [place] [facility] [address] [id number] [place] [address]- [address] Mar, [facility] [place] [facility] [address] [id number] [place] [address] Mar, [facility] [place] [facility] [address] [id number] [place] [address] Feb, [facility] [place] [facility] [address] [id number] [place] [address] 9569 Feb, [facility] [place] [facility] [address] [id number] [place] [address] 96[address] Feb, [facility] [place] [facility] [address] [id number] [place] [address] Feb, [facility] [place] [facility] [address] [id number] [place] [address] Feb, [facility] [place] [facility] [address] [id number] [place] [address] 1893 Feb, [facility] [place] [facility] [address] [id number] [place] [address] 74[address] Feb, [facility] [place] [facility] [address] [id number] [place] [address] 6199 Feb, [facility] [place] [facility] [address] [id number] [place] [address]- 2494 Feb, [facility] [place] [facility] [address] [id number] [place] [address]- 6[address] Feb, [facility] [place] [facility] [address] [id number] [place] [address]- 6[address] Feb, [facility] [place] [facility] [address] [id number] [place] [address]- [address] Feb, [facility] [place] [facility] [address] [id number] [place] [address]- 9419 Feb, [facility] [place] [facility] [address] [id number] [place] [address]- 0433 Feb, [facility] [place] [facility] [address] [id number] [place] [address]603 Feb, [facility] [place] [facility] [address] [id number] [place] [address]- 1402 Feb, [facility] [place] [facility] [address] [id number] [place] [address]- 4[address] Feb, [facility] [place] [facility] [address] [facility] [id number] [place] [address]- 77[address] Feb, [facility] [place] [facility] [address] [id number], [place] [address] Jan, [facility] [place] [facility] [address] [id number] [place] [address] Jan, [facility] [place] [facility] [address] [facility] [id number], [place] [address] Jan, [facility] [place] [facility] [address] [id number], [place] [address] Jan, [facility] [place] [facility] [address] [id number], [place] [address] Jan, [facility] [place] [facility] [address] [id number] [place] [address]- 9706 19 Jan, 2012 [facility] [place] [facility] [address] [id number], [place] [address] Jan, [facility] [place] [facility] [address] [facility] [id number], [place] [address] Jan, [facility] [place] [facility] [address] [id number] [place] [address]- 3657 15 Jan, 2012 [facility] [place] [facility] [address] [id number] [place] [address]- [address]16 15 Jan, 2012 [facility] [place] [facility] [address] [id number] [place] [address]- 7976 11 Jan, 2012 [facility] [place] [facility] [address] [id number] [place] [address]- 6[address] 11 Jan, 2012 [facility] [place] [facility] [address] [id number] [place] [address]- [address]70 10 Jan, 2012 [facility] [place] [facility] [address] [id number] [place] [address]- 7107 09 Jan, 2012 [facility] [place] [facility] [address] [id number] [place] [address]- [address] 02 Jan, 2012 [facility] [place] [facility] [address] [id number] [place] [address]- 1406 29 Dec, 2011 [facility] [place] [facility] [address] [id number] [place] [address]- 1578 28 Dec, 2011 [facility] [place] [facility] [address] [id number] [place] [address]- 8940 27 Dec, 2011 [facility] [place] [facility] [address] [id number] [place] [address]- 0367 26 Dec, 2011 [facility] [place] [facility] [address] [id number] [place] [address]- 4464 24 Nov, 2011 [facility] [place] [facility] [address] [id number] [place] [address]- 2542 Nov, [facility] [place] [facility] [address] [id number] [place] [address]- 4721 Nov, [facility] [place] [facility] [address] [id number] [place] [address]- 7991 Nov, [facility] [place] [facility] [address] [id number] [place] [address]- 7046 Nov, [facility] [place] [facility] [address] [id number] [place] [address]- 6102 Nov, [facility] [place] [facility] [address] [id number] [place] [address]- 62[address] Nov, [facility] [place] [facility] [address] [id number] [place] [address]- 7719 Nov, [facility] [place] [facility] [address] [id number] [place] [address]- 1519 Nov, [facility] [place] [facility] [address] [id number] [place] [address]- 1727 Nov, [facility] [place] [facility] [address] [id number] [place] [address]- 9617 Nov, [facility] [place] [facility] [address] [id number] [place] [address]- 8277 Oct, [facility] [place] [facility] [address] [id number] [place] [address]- 9097 Oct, [facility] [place] [facility] [address] [id number] [place] [address]- 6583 Oct, [facility] [place] [facility] [address] [id number] [place] [address]- 3267 Oct, [facility] [place] [facility] [address] [id number] [place] [address]- 6588 Oct, [facility] [place] [facility] [address] [id number] [place] [address]- 4974 Oct, [facility] [place] [facility] [address] [id number] [place] [address]- 5[address] Oct, [facility] [place] [facility] [address] [id number] [place] [address]- 9124 Oct, [facility] [place] [facility] [address] [id number] [place] [address]- 5952 Sep, [facility] [place] [facility] [address] [id number] [place] [address]- 2856 Sep, [facility] [place] [facility] [address] [id number] [place] [address]- 7476 Sep, [facility] [place] [facility] [address] [id number] [place] [address]- 0072 Sep, [facility] [place] [facility] [address] [id number] [place] [address]- 7356 Sep, [facility] [place] [facility] [address] [id number] [place] [address]- 5009 Sep, [facility] [place] [facility] [address] [id number] [place] [address]- 4813 Sep, [facility] [place] [facility] [address] [id number] [place] [address]- 4313 August, [facility] [place] [facility] [address] [id number] [place] [address]- 3304 August, [facility] [place] [facility] [address] [id number] [place] [address]- 3506 August, [facility] [place] [facility] [address] [id number] [place] [address]- 8481 August, [facility] [place] [facility] [address] [id number] [place] [address] August, [facility] [place] [facility] [address] [id number] [place] [address] August, [facility] [place] [facility] [address] [id number] [place] [address] August, [facility] [place] [facility] [address] [id number] [place] [address] August, [facility] [place] [facility] [address] [id number] [place] [address] Jul, [facility] [place] [facility] [address] [id number] [place] [address] Jul, [facility] [place] [facility] [address] [id number] [place] [address] 13 Jul, 2011 [facility] [address] [id number] [place] [address] 11 Jul, 2011 [facility] [address] [id number] [place] [address]66 05 Jul, 2011 [facility] [address] [id number] [place] [address] 28 Jun, 2011 [facility] [address] [id number] [place] [address] 2011 [facility] [address] [id number] [place] [address] 20 Jun, 2011 [facility] [address] [id number] [place] [address] 19 Jun, 2011 [facility] [address] [id number] [place] [address] Jun, [facility] [address] [id number] [place] [address] 12 Jun, 2011 [facility] [address] [id number] [place] [address] Jun, [facility] [address] [id number] [place] [address] 07 Jun, 2011 [facility] [place] [facility] [address] [id number] [place] [address] Jun, [facility] [address] [id number] [place] [address] 27 May, 2011 [facility] [place] [facility] [address] [id number] [place] [address]396 24 May, 2011 [facility] [address] [id number] [place] [address] May, [facility] [place] [facility] [address] [id number] [place] [address]67 May, [facility] [place] [facility] [address] [id number] [place] [address] May, [facility] [place] [facility] [address] [id number] [place] [address] 99[address] May, [facility] [place] [facility] [address] [id number] [place] [address] May, [facility] [place] [facility] [address] [id number] [place] [address]- 1445 May, [facility] [place] [facility] [address] [id number] [place] [address] 3931 Apr, [facility] [place] [facility] [address] [id number] [place] [address] 135[address] Apr, [facility] [place] [facility] [address] [id number] [place] [address] Apr, [facility] [place] [facility] [address] [id number] [place] [address]- 6145 Apr, [facility] [place] [facility] [address] [id number] [place] [address] 1400 Apr, [facility] [place] [facility] [address] [id number] [place] [address]- 75[address] Apr, [facility] [place] [facility] [address] [id number] [place] [address] Mar, [facility] [place] [facility] [address] [id number] [place] [address] Mar, [facility] [place] [facility] [address] [id number] [place] [address] 6[address] Mar, [facility] [place] [facility] [address] [id number] [place] [address] Mar, [facility] [place] [facility] [address] [id number] [place] [address] 1834 Mar, [facility] [place] [facility] [address] [id number] [place] [address] 13 Mar, 2011 [facility] [address] [id number] [place] [address]207 Mar, [facility] [place] [facility] [address] [id number] [place] [address] 45[address] Mar, [facility] [address] [id number] [place] [address]- [address] Mar, [facility] [address] [id number] [place] [address] 9835 Mar, [facility] [address] [id number] [place] [address]- 1774 Mar, [facility] [address] [id number] [place] [address]- 6773 Mar, [facility] [address] [id number] [place] [address] 7960 Mar, [facility] [address] [id number] [place] [address] 1827 Feb, [facility] [address] [facility] [id number] [place] [address] 9681 Feb, [facility] [address] [facility] [id number] [place] [address]- 8219 Feb, [facility] [place] [facility] [address] [id number] [place] [address]- [address] Feb, [facility] [place] [facility] [address] [id number] [place] [address]- 1821 Feb, [facility] [place] [facility] [address] [id number] [place] [address]- 0451 Feb, [facility] [place] [facility] [address] [facility] [id number] [place] [address]- 9603 Feb, [facility] [place] [facility] [address] [facility] [id number] [place] [address]- 1680 Jan, [facility] [address] [id number] [address] Jan, [facility] [id number] [address] [address] Jan, [facility] [id number] [place] [address] Nov, [facility] [address] [facility] [id number] [address] [address] Mar, [facility] [id number] [address] [address] Mar, [facility] [id number] [place] [address]- [address] Mar, [facility] [id number] [address] Mar, [facility] [id number] [place] [address]- 7363 Mar, [facility] [id number], [place] [address] 9908 Feb, [facility] [id number] [place] [address] 4027 Feb, [facility] [id number], [place] [address] 4[address] Feb, [facility] [id number] [address] Feb, [facility] [address] [id number] [address] [address] Feb, [facility] [id number] [address] [address] Feb, IMMUNIZATIONS No Known Immunizations SOCIAL HISTORY Never Assessed REASON FOR VISIT Other PLAN OF CARE VITAL SIGNS MEDICATIONS Medication Instructions Dosage Frequency Start Date End Date Duration Status Diethylpropion HCl ER 75 MG Orally Once a day 1 tablet 24h Apr, 15 May, 2017 30 days Active RESULTS No Results PROCEDURES [...]
--- OUTSIDE RECORDS SUMMARY | 2017-12-22 04:37 | XMS REPORT ---
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 2014 [facility] [place] [facility] [address] [id number] [place] [address]- 0066 23 Jun, 2014 [facility] [place] [facility] [address] [id number] [place] [address]- 3706 19 Jun, 2014 [facility] [place] [facility] [address] [id number] [place] [address]- 3226 19 Jun, 2014 [facility] [place] [facility] [address] [id number] [place] [address]- 6695 19 Jun, 2014 [facility] [place] [facility] [address] [id number] [place] [address]- 9924 19 Jun, 2014 [facility] [place] [facility] [address] [id number] [place] [address]- 2771 18 Jun, 2014 [facility] [place] [facility] [address] [id number] [place] [address]- 9108 18 Jun, 2014 [facility] [place] [facility] [address] [id number] [place] [address]- 3656 18 Jun, 2014 [facility] [place] [facility] [address] [id number] [place] [address]- 2124 18 Jun, 2014 [facility] [place] [facility] [address] [id number] [place] [address]- 9667 17 Jun, 2014 [facility] [place] [facility] [address] [id number] [place] [address]- 5646 17 Jun, 2014 [facility] [place] [facility] [address] [id number] [place] [address]- 2098 17 Jun, 2014 [facility] [place] [facility] [address] [id number] [place] [address]- 2626 17 Jun, 2014 [facility] [place] [facility] [address] [id number] [place] [address]- 7826 13 Jun, 2014 [facility] [place] [facility] [address] [id number] [place] [address]- 2799 13 Jun, 2014 [facility] [place] [facility] [address] [id number] [place] [address]- 5970 Jun, [facility] [place] [facility] [address] [id number] [place] [address]- 6520 Jun, [facility] [place] [facility] [address] [id number] [place] [address]- 1776 10 Jun, 2014 [facility] [place] [facility] [address] [id number] [place] [address]- 6593 Jun, [facility] [place] [facility] [address] [id number] [place] [address]- 0284 Jun, [facility] [place] [facility] [address] [id number] [place] [address]- 2449 Jun, [facility] [place] [facility] [address] [id number] [place] [address]- 1010 Jun, [facility] [place] [facility] [address] [id number] [place] [address]- 8770 Jun, [facility] [place] [facility] [address] [id number] [place] [address]- 7135 Jun, [facility] [place] [facility] [address] [id number] [place] [address]- 7425 Jun, [facility] [place] [facility] [address] [id number] [place] [address]- 5510 Jun, [facility] [place] [facility] [address] [id number] [place] [address]- 0111 Jun, [facility] [place] [facility] [address] [id number] [place] [address]- 0883 May, [facility] [place] [facility] [address] [id number] [place] [address]- 8603 May, [facility] [place] [facility] [address] [id number] [place] [address]- 6588 May, [facility] [place] [facility] [address] [id number] [place] [address]- 0316 May, 2014 [facility] [place] [facility] [address] [id number] [place] [address]- 0556 May, 2014 [facility] [place] [facility] [address] [id number] [place] [address] 2546 May, 2014 [facility] [place] [facility] [address] [id number] [place] [address]- 4096 May, 2014 [facility] [place] [facility] [address] [id number] [place] [address] 254 May, 2014 [facility] [place] [facility] [address] [id number] [place] [address]- 5836 May, 2014 [facility] [place] [facility] [address] [facility] [id number] [place] [address]- 2119 May, 2014 [facility] [place] [facility] [address] [facility] [place] [id number] [place] [address]- 1338 May, 2014 [facility] [place] [facility] [address] [facility] [place] [id number] [place] [address]- 8544 May, 2014 [facility] [place] [facility] [address] [facility] [place] [id number] [place] [address]- 1721 May, 2014 [facility] [place] [facility] [id number] [address]- 6119 May, 2014 [facility] [place] [facility] [address] [facility] [place] [id number] [address]- 8589 May, 2014 [facility] [place] [facility] [address] [facility] [place] [id number] [place] [address] 2542 May, 2014 [facility] [place] [facility] [address] [facility] [place] [id number] [place] [address]- 7236 Apr, [facility] [place] [facility] [address] [facility] [place] [id number] [place] [address]- 9149 Apr, [facility] [place] [facility] [address] [facility] [place] [id number] [place] [address]- 3741 Apr, [facility] [address] [id number] [place] [address]- 6362 Apr, [facility] [place] [facility] [address] [id number] [place] [address]- 1449 Apr, [facility] [place] [facility] [address] [id number] [place] [address]- 6717 Apr, [facility] [place] [facility] [address] [id number] [place] [address]- 4023 Apr, [facility] [place] [facility] [address] [id number] [place] [address]- 8175 Apr, [facility] [place] [facility] [address] [id number] [place] [address]- 8728 Apr, [facility] [place] [facility] [address] [id number] [place] [address]- 7108 Apr, [facility] [place] [facility] [address] [id number] [place] [address]- 2138 Apr, [facility] [place] [facility] [address] [id number] [place] [address]- 6161 Apr, [facility] [place] [facility] [address] [id number] [place] [address]- 8509 Apr, [facility] [place] [facility] [address] [id number] [place] [address]- 6647 Apr, [facility] [place] [facility] [address] [id number] [address]- 1207 Apr, [facility] [place] [facility] [address] [id number] [place] [address]- 1674 Mar, [facility] [place] [facility] [address] [id number] [place] [address]- 6574 Mar, [facility] [place] [facility] [address] [id number] [place] [address]- 2404 Mar, [facility] [place] [facility] [address] [id number] [place] [address]- 7271 Mar, [facility] [place] [facility] [address] [id number] [place] [address]- 0706 Mar, [facility] [place] [facility] [address] [id number] [place] [address]- 5796 Mar, [facility] [place] [facility] [address] [id number] [place] [address]- 1766 15 Mar, 2014 [facility] [place] [facility] [address] [id number] [place] [address]- 5460 15 Mar, 2014 [facility] [place] [facility] [address] [id number] [place] [address]- 7389 15 Mar, 2014 [facility] [place] [facility] [address] [id number] [place] [address]- 1245 15 Mar, 2014 [facility] [place] [facility] [address] [id number] [place] [address]- 7824 15 Mar, 2014 [facility] [place] [facility] [address] [id number] [place] [address]- 2063 15 Mar, 2014 [facility] [place] [facility] [address] [id number] [place] [address]- 1200 Mar, [facility] [place] [facility] [address] [id number] [place] [address]- 8390 Mar, [facility] [place] [facility] [address] [id number] [place] [address]- 4611 Mar, [facility] [place] [facility] [address] [id number] [place] [address]- 4979 Mar, [facility] [place] [facility] [address] [id number] [place] [address]- 3626 Mar, [facility] [place] [facility] [address] [id number] [place] 0760 Mar, [facility] [place] [facility] [address] [id number] [place] [address]- 4742 Feb, [facility] [place] [facility] [address] [id number] [place] [address]- 4721 Feb, [facility] [place] [facility] [address] [id number] [place] [address]- 6690 Feb, [facility] [place] [facility] [address] [id number] [place] [address]- 6100 Feb, [facility] [place] [facility] [address] [id number] [place] [address]- 9179 Feb, [facility] [place] [facility] [address] [id number] [place] [address]- 0698 Feb, [facility] [place] [facility] [address] [id number] [place] [address]- 7291 Feb, [facility] [place] [facility] [address] [id number] [place] [address]- 4027 Feb, [facility] [place] [facility] [address] [id number] [address]- 4703 Jan, [facility] [place] [facility] [address] [id number] [place] [address] Jan, [facility] [place] [facility] [address] [id number] [place] [address] Jan, [facility] [place] [facility] [address] [id number] [place] [address] Jan, [facility] [place] [facility] [address] [id number] [place] [address] Jan, [facility] [place] [facility] [address] [id number] [place] [address] Jan, [facility] [place] [facility] [address] [id number] [place] [address] Jan, [facility] [place] [facility] [address] [id number] [place] [address] Jan, [facility] [place] [facility] [address] [id number] [place] [address] 24 Jan, 2014 [facility] [place] [facility] [address] [id number] [place] [address] 24 Jan, 2014 [facility] [place] [facility] [address] [id number] [place] [address] Jan, [facility] [place] [facility] [address] [id number] [place] [address] Jan, [facility] [place] [facility] [address] [id number] [place] [address] Jan, [facility] [place] [facility] [address] [id number] [place] [address] Jan, [facility] [place] [facility] [address] [id number] [place] [address] 16 Jan, 2014 [facility] [place] [facility] [address] [id number] [place] [address] 16 Jan, 2014 [facility] [place] [facility] [address] [id number] [place] [address]- [address] Jan, [facility] [place] [facility] [address] [id number] [place] [address] Jan, [facility] [place] [facility] [address] [id number] [place] [address] 29 Dec, 2013 [facility] [place] [facility] [address] [id number] [place] [address]47 29 Dec, 2013 [facility] [place] [facility] [address] [id number] [place] [address]- [address]41 26 Dec, 2013 [facility] [place] [facility] [address] [id number] [place] [address]40 26 Dec, 2013 [facility] [place] [facility] [address] [id number] [place] [address]- [address] 26 Dec, 2013 [facility] [place] [facility] [address] [id number] [place] [address] 26 Dec, 2013 [facility] [place] [facility] [address] [id number] [place] [address]- [address]81 23 Dec, 2013 [facility] [place] [facility] [address] [id number] [place] [address]- [address] 23 Dec, 2013 [facility] [place] [facility] [address] [id number] [place] [address]- 2910 22 Dec, 2013 [facility] [place] [facility] [address] [id number] [place] [address]- [address] 22 Dec, 2013 [facility] [place] [facility] [address] [id number] [place] [address]- [address]29 16 Dec, 2013 [facility] [place] [facility] [address] [id number] [place] [address]- [address] 16 Dec, 2013 [facility] [place] [facility] [address] [id number] [place] [address]- 9485 15 Dec, 2013 [facility] [place] [facility] [address] [id number] [place] [address] 15 Dec, 2013 [facility] [place] [facility] [address] [id number] [place] [address] 09 Dec, 2013 [facility] [place] [facility] [address] [id number] [place] [address] Dec, [facility] [place] [facility] [address] [id number] [place] [address] Dec, [facility] [place] [facility] [address] [id number] [place] [address] Nov, [facility] [place] [facility] [address] [id number] [place] [address] Nov, [facility] [place] [facility] [address] [id number] [place] [address] Nov, [facility] [place] [facility] [address] [id number] [place] [address] Nov, [facility] [place] [facility] [address] [id number] [place] [address] Nov, [facility] [place] [facility] [address] [id number] [place] [address]- [address] Nov, [facility] [place] [facility] [address] [id number] [place] [address] Nov, [facility] [place] [facility] [address] [id number] [place] [address]- [address] Nov, [facility] [place] [facility] [address] [id number] [place] [address]- [address] Nov, [facility] [place] [facility] [address] [id number] [place] [address]- [address] Nov, [facility] [place] [facility] [address] [id number] [place] [address]- 27[address] Nov, [facility] [place] [facility] [address] [id number] [place] [address]- [address] Nov, [facility] [place] [facility] [address] [id number] [place] [address]- [address] Nov, [facility] [place] [facility] [address] [id number] [place] [address]- [address] Nov, [facility] [place] [facility] [address] [id number] [place] [address]- [address] Nov, [facility] [place] [facility] [address] [id number] [place] [address]- [address] Nov, [facility] [place] [facility] [address] [id number] [place] [address]- [address] Nov, [facility] [place] [facility] [address] [id number] [place] [address]- [address] Nov, [facility] [place] [facility] [address] [id number] [place] [address]- [address] Nov, [facility] [place] [facility] [address] [address] [id number] [place] [address] Nov, [facility] [place] [facility] [address] [id number] [place] [address] Nov, [facility] [place] [facility] [address] [id number] [place] [address] 7473 Oct, [facility] [place] [facility] [address] [id number] [place] [address] Oct, [facility] [place] [facility] [address] [id number] [place] [address] 3185 Oct, [facility] [place] [facility] [address] [id number] [place] [address] 7915 Oct, [facility] [place] [facility] [address] [id number] [place] [address] Oct, [facility] [place] [facility] [address] [id number] [place] [address] 9443 Oct, [facility] [place] [facility] [address] [id number] [place] [address] 7843 Oct, [facility] [place] [facility] [address] [id number] [place] [address] 8037 Oct, [facility] [place] [facility] [address] [id number] [place] [address] 67[address] Oct, [facility] [place] [facility] [address] [id number] [place] [address] 7983 Oct, [facility] [place] [facility] [address] [id number] [place] [address] 6642 Oct, [facility] [place] [facility] [address] [id number] [place] [address] 2607 Oct, [facility] [place] [facility] [address] [id number] [place] [address]- 2336 Oct, [facility] [place] [facility] [address] [id number] [place] [address]- 8535 Oct, [facility] [place] [facility] [address] [id number] [place] [id number] [address] Oct, [facility] [place] [facility] [address] [id number] [place] [address]- 4544 30 Sep, 2013 [facility] [place] [facility] [address] [id number] [place] [address]- 5846 Sep, [facility] [place] [facility] [address] [id number] [place] [address]- 0527 Sep, [facility] [place] [facility] [address] [id number] [place] [address]- 3486 Sep, [facility] [place] [facility] [address] [id number] [place] [address]- 1870 Sep, [facility] [place] [facility] [address] [id number] [place] [address]- 4850 Sep, [facility] [place] [facility] [address] [id number] [place] [address]- 0978 Sep, [facility] [place] [facility] [address] [id number] [place] [address]- 0781 18 Sep, 2013 [facility] [place] [facility] [address] [id number] [place] [address]- 1245 17 Sep, 2013 [facility] [place] [facility] [address] [id number] [place] [address]- 8634 16 Sep, 2013 [facility] [place] [facility] [address] [id number] [place] [address]- 6505 16 Sep, 2013 [facility] [place] [facility] [address] [id number] [place] [address]- 1229 16 Sep, 2013 [facility] [place] [facility] [address] [id number] [place] [address]- 1495 Sep, [facility] [place] [facility] [address] [id number] [place] [address]- 3032 Sep, [facility] [place] [facility] [address] [id number] [place] [address]- 3292 Sep, [facility] [place] [facility] [address] [id number] [place] [address]- 1649 Sep, [facility] [place] [facility] [address] [id number] [place] [address]- 2223 Sep, [facility] [place] [facility] [address] [id number] [place] [address]- 6811 Sep, [facility] [place] [facility] [address] [id number] [place] [address]- 3444 Sep, [facility] [place] [facility] [address] [id number] [place] [address]- 5005 Sep, [facility] [place] [facility] [address] [id number] [place] [address]- 0334 Sep, [facility] [place] [facility] [address] [id number] [place] [address]- 3162 Sep, [facility] [place] [facility] [address] [id number] [place] [address]- 1294 August, [facility] [place] [facility] [address] [id number] [place] [address]- 0397 August, [facility] [place] [facility] [address] [id number] [place] [address]- 3227 August, [facility] [place] [facility] [address] [id number] [place] [address]- 8[address] August, [facility] [place] [facility] [address] [id number] [place] [address]- 2864 August, [facility] [place] [facility] [address] [id number] [place] [address]- 3626 August, [facility] [place] [facility] [address] [id number] [place] [address]- 1362 August, [facility] [place] [facility] [address] [id number] [place] [address]- 8318 August, [facility] [place] [facility] [address] [id number] [place] [address]- 9983 August, [facility] [place] [facility] [address] [id number] [place] [address]- 1510 August, [facility] [place] [facility] [address] [id number] [place] [address]- 0178 August, [facility] [place] [facility] [address] [id number] [place] [address]- 1774 August, [facility] [place] [facility] [address] [id number] [place] [address]- 7894 August, [facility] [place] [facility] [address] [id number] [place] [address]- 5376 August, [facility] [place] [facility] [address] [id number] [place] [address]- 6326 August, [facility] [place] [facility] [address] [id number] [place] [address]- 1716 August, [facility] [place] [facility] [address] [id number] [place] [address]- 7510 August, [facility] [place] [facility] [address] [id number] [place] [address]- 2995 August, [facility] [place] [facility] [address] [id number] [place] [address]- 6007 Jul, [facility] [place] [facility] [address] [id number] [place] [address]- 3157 Jul, [facility] [place] [facility] [address] [id number] [place] [address]- 4284 Jul, [facility] [place] [facility] [address] [id number] [place] [address]- 8998 Jul, [facility] [place] [facility] [address] [id number] [place] [address]- 0156 Jul, [facility] [place] [facility] [address] [id number] [place] [address]- 8633 Jul, [facility] [place] [facility] [address] [id number] [place] [address]- 1281 Jul, [facility] [place] [facility] [address] [id number] [place] [address]- 9799 22 Jul, 2013 [facility] [place] [facility] [address] [id number] [place] [address]- 1454 22 Jul, 2013 [facility] [place] [facility] [address] [id number] [place] [address]- 5975 Jul, [facility] [place] [facility] [address] [id number] [place] [address]- 3559 Jul, [facility] [place] [facility] [address] [id number] [place] [address]- 4651 18 Jul, 2013 [facility] [place] [facility] [address] [id number] [place] [address]- 4187 18 Jul, 2013 [facility] [place] [facility] [address] [id number] [place] [address]- 5720 17 Jul, 2013 [facility] [place] [facility] [address] [id number] [place] [address]- 4915 17 Jul, 2013 [facility] [place] [facility] [address] [id number] [place] [address]- 0141 17 Jul, 2013 [facility] [place] [facility] [address] [id number] [place] [address]- 6280 17 Jul, 2013 [facility] [place] [facility] [address] [id number] [place] [address]- 5368 16 Jul, 2013 [facility] [place] [facility] [address] [id number] [place] [address]- 3620 16 Jul, 2013 [facility] [place] [facility] [address] [id number] [place] [address]- 4120 15 Jul, 2013 [facility] [place] [facility] [address] [id number] [place] [address]- 5982 15 Jul, 2013 [facility] [place] [facility] [address] [id number] [place] [address]- 2921 14 Jul, 2013 [facility] [place] [facility] [address] [id number] [place] [address]- 7061 14 Jul, 2013 [facility] [place] [facility] [address] [id number] [place] [address]- 2328 12 Jul, 2013 [facility] [place] [facility] [address] [id number] [place] [address]- 0246 12 Jul, 2013 [facility] [place] [facility] [address] [id number] [place] [address] Jul, [facility] [place] [facility] [address] [id number] [place] [address]- 2723 Jul, [facility] [place] [facility] [address] [id number] [place] [address]- 2218 Jul, [facility] [place] [facility] [address] [id number] [place] [address]- 4544 Jul, [facility] [place] [facility] [address] [id number] [place] [address]- 4685 17 Jun, 2013 [facility] [place] [facility] [address] [id number] [place] [address]- 3583 17 Jun, 2013 [facility] [place] [facility] [address] [id number] [place] [address]- 0961 17 Jun, 2013 [facility] [place] [facility] [address] [id number] [place] [address]- 0793 17 Jun, 2013 [facility] [place] [facility] [address] [id number] [place] [address]- 8061 13 Jun, 2013 [facility] [place] [facility] [address] [id number] [place] [address]- 1621 13 Jun, 2013 [facility] [place] [facility] [address] [id number] [place] [address]- 6549 11 Jun, 2013 [facility] [place] [facility] [address] [id number] [place] [address]- 2741 11 Jun, 2013 [facility] [place] [facility] [address] [id number] [place] [address]- 9988 Jun, [facility] [place] [facility] [address] [id number] [place] [address]- 7435 Jun, [facility] [place] [facility] [address] [id number] [place] [address]- 7175 Jun, [facility] [place] [facility] [address] [id number] [place] [address]- 2737 Jun, [facility] [place] [facility] [address] [id number] [place] [address]- 5362 May, [facility] [place] [facility] [address] [id number] [place] [address]- 1513 May, [facility] [place] [facility] [address] [id number] [place] [address]- 6748 May, [facility] [place] [facility] [address] [id number] [place] [address]- 9119 May, [facility] [place] [facility] [address] [id number] [place] [address]- 7346 May, [facility] [place] [facility] [address] [id number] [place] [address]- 2908 May, [facility] [place] [facility] [address] [id number] [place] [address]- 3146 May, [facility] [place] [facility] [address] [id number] [place] [address]- 7681 May, [facility] [place] [facility] [address] [id number] [place] [address]- 8629 May, [facility] [place] [facility] [address] [id number] [place] [address]- 7389 May, [facility] [place] [facility] [address] [id number] [place] [address]- 2638 Apr, [facility] [place] [facility] [address] [id number] [place] [address]- 4529 Apr, [facility] [place] [facility] [address] [id number] [place] [address]- 8511 Apr, [facility] [address] [id number] [place] [address]- 8457 Apr, [facility] [address] [id number] [place] [address]- 5707 Apr, [facility] [address] [id number] [place] [address]- 9939 Apr, [facility] [address] [id number] [place] [address]- 0788 Apr, [facility] [address] [id number] [place] [address]- 3740 Apr, [facility] [address] [id number] [place] [address]- 4580 Apr, [facility] [address] [id number] [place] [address]- 1264 Apr, [facility] [address] [id number] [place] [address]- 7674 Mar, [facility] [address] [id number] [place] [address]- 9744 Mar, [facility] [address] [id number] [place] [address]- 4305 Mar, [facility] [address] [id number] [place] [address]- 5519 Mar, [facility] [address] [id number] [place] [address]- 2250 Mar, [facility] [address] [id number] [place] [address]- 9970 Mar, [facility] [address] [id number] [place] [address]- 9920 Feb, [facility] [address] [id number] [place] [address]- 7059 Feb, [facility] [place] [facility] [address] [id number] [place] [address]- 3802 Feb, [facility] [place] [facility] [address] [id number] [place] [address]- 7954 Jan, [facility] [place] [facility] [address] [id number] [place] [address]- 9774 Jan, [facility] [place] [facility] [address] [id number] [place] [address]- 4354 Jan, [facility] [place] [facility] [address] [id number] [place] [address]- 1505 Jan, [facility] [place] [facility] [address] [id number] [place] [address]- 9102 Jan, [facility] [place] [facility] [address] [id number] [place] [address]- 9053 Jan, [facility] [place] [facility] [address] [id number] [place] [address]- 8326 Jan, [facility] [place] [facility] [address] [id number] [place] [address]- 1799 Jan, [facility] [place] [facility] [address] [id number] [place] [address]- 3781 Jan, [facility] [place] [facility] [address] [id number] [place] [address]- 1078 Jan, [facility] [place] [facility] [address] [id number] [place] [address]- 2013 30 Dec, 2012 [facility] [place] [facility] [address] [id number] [place] [address]- 4266 25 Dec, 2012 [facility] [place] [facility] [address] [id number] [place] [address]- 8734 Dec, [facility] [place] [facility] [address] [id number] [place] [address]20 09 Dec, 2012 [facility] [place] [facility] [address] [id number] [place] [address]- 5061 Dec, [facility] [place] [facility] [address] [id number] [place] [address] 2547 Dec, [facility] [place] [facility] [address] [id number] [place] [address]- 4333 Nov, [facility] [place] [facility] [address] [id number] [place] [address]- 5844 Nov, [facility] [place] [facility] [address] [id number] [place] [address]- 6608 Nov, [facility] [place] [facility] [address] [id number] [place] [address]- 0641 Nov, [facility] [place] [facility] [address] [id number] [place] [address]- 6248 Nov, [facility] [place] [facility] [address] [id number] [place] [address]- 7307 Nov, [facility] [place] [facility] [address] [id number] [place] [address]- 3806 Nov, [facility] [place] [facility] [address] [id number] [place] [address]- 0490 Nov, [facility] [place] [facility] [address] [id number] [place] [address]- 7082 Nov, [facility] [place] [facility] [address] [id number] [place] [address]- 8285 Nov, [facility] [place] [facility] [address] [id number] [place] [address]- 2544 Nov, [facility] [place] [facility] [address] [id number] [place] [address]- 2299 Nov, [facility] [place] [facility] [address] [id number] [place] [address]- 1409 Oct, [facility] [place] [facility] [address] [id number] [place] [address]- 7352 Oct, [facility] [place] [facility] [address] [id number] [place] [address]- 7923 08 Oct, 2012 [facility] [address] [id number] [place] [address]- 8797 Sep, [facility] [place] [facility] [address] [id number] [place] [address]- 4122 Sep, [facility] [address] [id number] [place] [address]- 4065 Sep, [facility] [address] [id number] [place] [address]- 6932 August, [facility] [address] [id number] [place] [address]- 3485 August, [facility] [address] [id number] [place] [address]- 8936 August, [facility] [address] [id number] [place] [address]- 3514 August, [facility] [address] [id number] [place] [address]- 7697 August, [facility] [address] [id number] [place] [address]- 4946 August, [facility] [address] [id number] [place] [address]- 2853 Jul, [facility] [place] [facility] [address] [id number] [place] [address]- 3938 15 Jul, 2012 [facility] [place] [facility] [address] [id number] [place] [address]- 8859 11 Jul, 2012 [facility] [place] [facility] [address] [id number] [place] [address]- 8052 10 Jul, 2012 [facility] [place] [facility] [address] [id number] [place] [address]- 6916 04 Jul, 2012 [facility] [place] [facility] [address] [id number] [place] [address]- 2676 04 Jul, 2012 [facility] [place] [facility] [address] [id number] [place] [address]- 9741 2012 [facility] [place] [facility] [address] [id number] [place] [address]- 3293 20 Jun, 2012 [facility] [place] [facility] [address] [id number] [place] [address]- 6864 18 Jun, 2012 [facility] [place] [facility] [address] [id number] [place] [address]- 3953 14 Jun, 2012 [facility] [place] [facility] [address] [id number] [place] [address]- 6697 04 Jun, 2012 [facility] [place] [facility] [address] [id number] [place] [address]- 8413 13 May, 2012 [facility] [place] [facility] [address] [id number] [place] [address]- 6507 12 May, 2012 [facility] [place] [facility] [address] [id number] [place] [address]- 9997 May, [facility] [place] [facility] [address] [id number] [place] [address]- 3819 08 May, 2012 [facility] [place] [facility] [address] [id number] [place] [address]- 4924 Apr, [facility] [place] [facility] [address] [id number] [place] [address]- 2566 Apr, [facility] [place] [facility] [address] [id number] [place] [address]- 4059 Apr, [facility] [place] [facility] [address] [id number] [place] [address]- 4149 Mar, [facility] [place] [facility] [address] [id number] [place] [address]- 4102 Mar, [facility] [place] [facility] [address] [id number] [place] [address]- 4874 Mar, [facility] [place] [facility] [address] [id number] [place] [address]- 0923 Mar, [facility] [address] [id number] [place] [address]- 5428 Mar, [facility] [place] [facility] [address] [id number] [place] [address]- 4676 Mar, [facility] [address] [id number] [place] [address]- 1894 Mar, [facility] [place] [facility] [address] [id number] [place] [address]- 3219 Mar, [facility] [address] [id number] [place] [address]- 4277 Feb, [facility] [address] [id number] [place] [address]- 2295 Feb, [facility] [place] [facility] [address] [id number] [place] [address]- 2220 Feb, [facility] [address] [id number] [place] [address]- 5735 Feb, [facility] [place] [facility] [address] [id number] [place] [address] Feb, [facility] [address] [facility] [place] [id number] [place] [address] Feb, [facility] [place] [facility] [address] [id number] [place] [address] Feb, [facility] [place] [facility] [address] [id number] [place] [address] Feb, [facility] [place] [facility] [address] [id number] [place] [address] Feb, [facility] [place] [facility] [address] [facility] [place] [id number] [place] [address] Feb, [facility] [place] [facility] [address] [facility] [place] [id number] [place] [address] Feb, [facility] [place] [facility] [address] [id number] [place] [address] Feb, [facility] [place] [facility] [address] [id number] [place] [address] Feb, [facility] [place] [facility] [address] [id number] [place] [address] Feb, [facility] [place] [facility] [address] [id number] [place] [address] Feb, [facility] [place] [facility] [address] [id number] [place] [address] Feb, [facility] [place] [facility] [address] [id number] [place] [address] Feb, [facility] [place] [facility] [address] [facility] [place] [id number] [place] [address] 72[address] Feb, [facility] [place] [facility] [address] [id number] [place] [address] Jan, [facility] [place] [facility] [address] [facility] [place] [id number] [place] [address] Jan, [facility] [place] [facility] [address] [facility] [place] [id number] [place] [address] Jan, [facility] [place] [facility] [address] [facility] [place] [id number] [place] [address] Jan, [facility] [place] [facility] [address] [id number] [place] [address] Jan, [facility] [place] [facility] [address] [facility] [place] [id number] [place] [address] Jan, [facility] [place] [facility] [address] [facility] [place] [id number] [place] [address] Jan, [facility] [place] [facility] [address] [facility] [place] [id number] [place] [address] Jan, [facility] [place] [facility] [address] [id number] [place] [address] 15 Jan, 2012 [facility] [place] [facility] [address] [id number] [place] [address] 15 Jan, 2012 [facility] [place] [facility] [address] [id number] [place] [address] Jan, [facility] [place] [facility] [address] [id number] [place] [address] 4366 11 Jan, 2012 [facility] [place] [facility] [address] [id number] [place] [address] 10 Jan, 2012 [facility] [place] [facility] [address] [id number] [place] [address] 1800 09 Jan, 2012 [facility] [place] [facility] [address] [id number] [place] [address]- 1453 02 Jan, 2012 [facility] [place] [facility] [address] [id number] [place] [address] 8562 29 Dec, 2011 [facility] [place] [facility] [address] [id number] [place] [address]266 28 Dec, 2011 [facility] [place] [facility] [address] [id number] [place] [address] 4147 27 Dec, 2011 [facility] [place] [facility] [address] [facility] [place] [id number] [place] [address] 4740 26 Dec, 2011 [facility] [place] [facility] [address] [id number] [place] [address] 4259 24 Nov, 2011 [facility] [place] [facility] [address] [id number] [place] [address] Nov, [facility] [place] [facility] [address] [id number] [place] [address] 6[address] Nov, [facility] [place] [facility] [address] [facility] [place] [id number] [place] [address]107 Nov, [facility] [place] [facility] [address] [facility] [place] [id number] [place] [address] 67[address] Nov, [facility] [place] [facility] [address] [id number] [place] [address] 8477 Nov, [facility] [place] [facility] [address] [id number] [place] [address] 2965 Nov, [facility] [place] [facility] [address] [id number] [place] [address] 25[address] Nov, [facility] [place] [facility] [address] [id number] [place] [address] 64[address] Nov, [facility] [place] [facility] [address] [id number] [place] [address] 4728 Nov, [facility] [place] [facility] [address] [id number] [place] [address] 60[address] Nov, [facility] [place] [facility] [address] [id number] [place] [address]- 299[address] Oct, [facility] [place] [facility] [address] [id number] [place] [address]- [address]345 Oct, [facility] [place] [facility] [address] [id number] [place] [address] 3098 Oct, [facility] [place] [facility] [address] [id number] [place] [address]- 8343 Oct, [facility] [place] [facility] [address] [id number] [place] [address] 8564 Oct, [facility] [place] [facility] [address] [id number] [place] [address]- 5405 Oct, [facility] [place] [facility] [address] [id number] [place] [address]- 9717 Oct, [facility] [place] [facility] [address] [id number] [place] [address]- 4696 Oct, [facility] [place] [facility] [address] [id number] [place] [address]- 1166 Sep, [facility] [place] [facility] [address] [id number] [place] [address]- 3366 Sep, [facility] [place] [facility] [address] [id number] [place] [address]- 0771 Sep, [facility] [place] [facility] [address] [id number] [place] [address]- 9016 Sep, [facility] [place] [facility] [address] [id number] [place] [address]- 0089 Sep, [facility] [place] [facility] [address] [id number] [place] [address]- 1320 Sep, [facility] [place] [facility] [address] [id number] [place] [address]- 1669 Sep, [facility] [place] [facility] [address] [id number] [place] [address]- 4715 August, [facility] [place] [facility] [address] [id number] [place] [address] 4648 August, [facility] [place] [facility] [address] [id number] [place] [address]- 68[address] August, [facility] [place] [facility] [address] [id number] [place] [address]- 3458 August, [facility] [place] [facility] [address] [id number] [place] [address]- 8803 August, [facility] [place] [facility] [address] [id number] [place] [address]- 9680 August, [facility] [place] [facility] [address] [id number] [place] [address]- 3090 August, [facility] [place] [facility] [address] [id number] [place] [address]- 8716 August, [facility] [place] [facility] [address] [id number] [place] [address]- 4[address] Jul, [facility] [place] [facility] [address] [id number] [place] [address]- 8426 Jul, [facility] [place] [facility] [address] [address] [id number] [place] [address] 13 Jul, 2011 [facility] [place] [facility] [address] [id number] [place] [address] 11 Jul, 2011 [facility] [place] [facility] [address] [id number] [place] [address] 05 Jul, 2011 [facility] [place] [facility] [address] [id number] [place] [address] 28 Jun, 2011 [facility] [place] [facility] [address] [id number] [place] [address] 2011 [facility] [place] [facility] [address] [id number] [place] [address] 20 Jun, 2011 [facility] [place] [facility] [address] [id number] [place] [address] 19 Jun, 2011 [facility] [place] [facility] [address] [id number] [place] [address] Jun, [facility] [place] [facility] [address] [id number] [place] [address] Jun, [facility] [place] [facility] [address] [id number] [place] [address] Jun, [facility] [place] [facility] [address] [id number] [place] [address] Jun, [facility] [place] [facility] [address] [id number] [place] [address] 06 Jun, 2011 [facility] [place] [facility] [address] [id number] [place] [address] 27 May, 2011 [facility] [place] [facility] [address] [id number] [place] [address] 24 May, 2011 [facility] [place] [facility] [address] [id number] [place] [address] May, [facility] [place] [facility] [address] [id number] [place] [address] May, [facility] [address] [id number] [place] [address] May, [facility] [place] [facility] [address] [id number] [place] [address] May, [facility] [place] [facility] [address] [id number] [place] [address] May, [facility] [place] [facility] [address] [id number] [place] [address] May, [facility] [address] [id number] [place] [address] Apr, [facility] [place] [facility] [address] [id number] [place] [address] Apr, [facility] [place] [facility] [address] [id number] [place] [address] Apr, [facility] [place] [facility] [address] [id number] [place] [address] Apr, [facility] [place] [facility] [address] [id number] [place] [address]- 45[address] Apr, [facility] [address] [facility] [place] [place] [id number] [place] [address] Apr, [facility] [place] [facility] [address] [id number] [place] [address] Mar, [facility] [place] [facility] [address] [id number] [place] [address] Mar, [facility] [place] [facility] [address] [id number] [place] [address] Mar, [facility] [place] [facility] [address] [id number] [place] [address] Mar, [facility] [place] [facility] [address] [id number] [place] [address] 15 Mar, 2011 [facility] [place] [facility] [address] [id number] [place] [address] 13 Mar, 2011 [facility] [address] [id number] [place] [address] 1166 13 Mar, 2011 [facility] [place] [facility] [address] [id number] [place] [address] 1066 13 Mar, 2011 [facility] [place] [facility] [address] [id number] [place] [address] Mar, [facility] [place] [facility] [address] [id number] [place] [address] 94[address] 06 Mar, 2011 [facility] [place] [facility] [address] [id number] [place] [address] 89[address] 05 Mar, 2011 [facility] [place] [facility] [address] [id number] [place] [address] 05 Mar, 2011 [facility] [place] [facility] [address] [id number] [place] [address] 05 Mar, 2011 [facility] [place] [facility] [address] [id number] [place] [address] Feb, [facility] [place] [facility] [address] [id number] [place] [address]- 66[address] Feb, [facility] [place] [facility] [address] [facility] [place] [id number] [place] [address] Feb, [facility] [place] [facility] [address] [id number] [place] [address] 8737 Feb, [facility] [place] [facility] [address] [id number] [place] [address] Feb, [facility] [place] [facility] [address] [id number] [place] [address] Feb, [facility] [place] [facility] [address] [facility] [place] [id number] [place] [address]58 Feb, [facility] [place] [facility] [address] [id number] [place] [address] Jan, [facility] [address] [facility] [place] [id number] [place] [address] 17 Jan, 2011 [facility] [address] [facility] [place] [id number] [place] [address] Jan, [facility] [address] [facility] [place] [id number] [place] [address] Nov, [facility] [address] [facility] [place] [id number] [place] [address] Mar, [facility] [address] [facility] [place] [id number] [place] [address] Mar, [facility] [address] [facility] [place] [id number] [place] [address] Mar, [facility] [id number] [address] Mar, [facility] [id number] [address] Mar, [facility] [id number] [address] Feb, [facility] [id number] [address] 30 Feb, 2010 [facility] [id number] [address] Feb, [facility] [id number] [place] [address] Feb, [facility] [address] [id number] [address] Feb, [facility] [id number] [address] Feb, IMMUNIZATIONS No Known Immunizations SOCIAL HISTORY Never Assessed REASON FOR VISIT Lab (walk-in) PLAN OF CARE VITAL SIGNS MEDICATIONS Unknown Medications RESULTS No Results PROCEDURES Procedure Date Ordered Result Body Site LAB NOT BILLED BY [facility] May 04, 2017 Hemoglobin Test Send Out 0 dollar May 04, 2017 VENIPUNCT, ROUTINE* May 04, 2017 INSTRUCTIONS MEDICATIONS ADMINISTERED No Known Medications [...]
--- OUTSIDE RECORDS SUMMARY | 2017-12-22 04:39 | XMS REPORT ---
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 [facility] [place] [facility] [address] [id number] [place] 0525 Jun, [facility] [place] [facility] [address] [id number] [place] [address]- 1706 23 Jun, 2014 [facility] [place] [facility] [address] [id number] [place] [address]- 7434 23 Jun, 2014 [facility] [place] [facility] [address] [id number] [place] [address]- 5168 23 Jun, 2014 [facility] [place] [facility] [address] [id number] [place] [address]- 1990 19 Jun, 2014 [facility] [place] [facility] [address] [id number] [place] [address]- 1066 19 Jun, 2014 [facility] [place] [facility] [address] [id number] [place] [address]- 2058 19 Jun, 2014 [facility] [place] [facility] [address] [id number] [place] [address]- 1585 19 Jun, 2014 [facility] [place] [facility] [address] [id number] [place] [address]- 5758 18 Jun, 2014 [facility] [place] [facility] [address] [id number] [place] [address]- 1324 18 Jun, 2014 [facility] [place] [facility] [address] [id number] [place] [address]- 6937 18 Jun, 2014 [facility] [place] [facility] [address] [id number] [place] [address]- 8195 18 Jun, 2014 [facility] [place] [facility] [address] [id number] [place] [address]- 5308 17 Jun, 2014 [facility] [place] [facility] [address] [id number] [place] [address]- 5217 17 Jun, 2014 [facility] [place] [facility] [address] [id number] [place] [address]- 6484 17 Jun, 2014 [facility] [place] [facility] [address] [id number] [place] [address]- 6136 17 Jun, 2014 [facility] [place] [facility] [address] [id number] [place] [address]- 8551 13 Jun, 2014 [facility] [place] [facility] [address] [id number] [place] [address]- 1326 13 Jun, 2014 [facility] [place] [facility] [address] [id number] [place] [address]- 9040 12 Jun, 2014 [facility] [place] [facility] [address] [id number] [place] [address]- 5436 12 Jun, 2014 [facility] [place] [facility] [address] [id number] [place] [address]- 8782 10 Jun, 2014 [facility] [place] [facility] [address] [id number] [place] [address]- 2381 10 Jun, 2014 [facility] [place] [facility] [address] [id number] [place] [address]- 8841 10 Jun, 2014 [facility] [place] [facility] [address] [id number] [place] [address]- 4823 Jun, [facility] [place] [facility] [address] [id number] [place] [address]- 2629 Jun, 2014 [facility] [place] [facility] [address] [id number] [place] [address]- 4139 Jun, [facility] [place] [facility] [address] [id number] [place] [address]- 9650 05 Jun, 2014 [facility] [place] [facility] [address] [id number] [place] [address]- 2351 Jun, [facility] [place] [facility] [address] [id number] [place] [address]- 3453 Jun, 2014 [facility] [place] [facility] [address] [id number] [place] [address]- 3152 Jun, [facility] [place] [facility] [address] [id number] [place] [address]- 6475 May, [facility] [place] [facility] [address] [id number] [place] [address]- 8556 May, [facility] [place] [facility] [address] [id number] [place] [address]- 8254 May, 2014 [facility] [place] [facility] [address] [id number] [place] [address]- 3906 May, 2014 [facility] [place] [facility] [address] [facility] [id number] [place] [address]- 1056 May, 2014 [facility] [place] [facility] [address] [facility] [id number] [place] [address]- 2006 May, 2014 [facility] [place] [facility] [address] [facility] [id number] [place] [address]- 8372 May, 2014 [facility] [place] [facility] [address] [id number] [place] [address]- 8027 May, 2014 [facility] [place] [facility] [address] [facility] [id number] [place] [address]- 9823 May, 2014 [facility] [place] [facility] [id number] [place] [address]- 4709 May, 2014 [facility] [place] [facility] [address] [facility] [id number] [place] [address]- 0122 May, 2014 [facility] [place] [facility] [address] [facility] [id number] [place] [address]- 0796 May, 2014 [facility] [place] [facility] [address] [facility] [id number] [place] [address]- 0142 May, 2014 [facility] [place] [facility] [address] [facility] [id number] [place] [address]- 1979 May, 2014 [facility] [place] [facility] [address] [facility] [id number] [place] [address]- 8426 May, 2014 [facility] [place] [facility] [address] [facility] [id number] [place] [address]- 9330 May, 2014 [facility] [place] [facility] [address] [facility] [id number] [place] 6996 Apr, [facility] [place] [facility] [address] [facility] [id number] [place] [address]- 4286 Apr, [facility] [place] [facility] [address] [id number] [place] [address]- 9526 Apr, [facility] [place] [facility] [address] [id number] [place] [address]- 4302 Apr, [facility] [place] [facility] [address] [id number] [place] [address]- 6998 Apr, [facility] [place] [facility] [address] [id number] [place] [address]- 9686 Apr, [facility] [address] [id number] [place] [address]- 5655 Apr, [facility] [place] [facility] [address] [id number] [place] [address]- 6026 Apr, [facility] [place] [facility] [address] [id number] [place] [address]- 2549 Apr, [facility] [address] [id number] [place] [address]- 7965 Apr, [facility] [place] [facility] [address] [id number] [place] [address]- 0524 Apr, [facility] [place] [facility] [address] [id number] [place] [address]- 1537 Apr, [facility] [place] [facility] [address] [id number] [place] [address]- 3695 Apr, [facility] [place] [facility] [address] [id number] [place] [address]- 0116 Apr, [facility] [place] [facility] [address] [id number] [place] [address]- 4167 Apr, [facility] [place] [facility] [address] [id number] [place] [address]- 8469 Mar, [facility] [place] [facility] [address] [id number] [place] [address]- 4883 Mar, [facility] [place] [facility] [address] [id number] [place] [address]- 4490 Mar, [facility] [place] [facility] [address] [id number] [place] [address]- 0300 Mar, [facility] [place] [facility] [address] [id number] [place] [address]- 7536 Mar, [facility] [place] [facility] [address] [id number] [place] [address]- 1382 Mar, [facility] [place] [facility] [address] [id number] [place] [address]- 4439 15 Mar, 2014 [facility] [place] [facility] [address] [id number] [place] [address]- 1372 15 Mar, 2014 [facility] [place] [facility] [address] [id number] [place] [address]- 1755 15 Mar, 2014 [facility] [place] [facility] [address] [id number] [place] [address]- 6483 15 Mar, 2014 [facility] [place] [facility] [address] [id number] [place] [address]- 1498 15 Mar, 2014 [facility] [place] [facility] [address] [id number] [place] [address]- 5994 15 Mar, 2014 [facility] [place] [facility] [address] [id number] [place] [address]- 0934 Mar, [facility] [place] [facility] [address] [id number] [place] [address]- 0824 Mar, [facility] [place] [facility] [address] [id number] [place] [address]- 6488 Mar, [facility] [place] [facility] [address] [id number] [place] [address]- 6471 Mar, [facility] [place] [facility] [address] [id number] [place] [address]- 5609 Mar, [facility] [place] [facility] [address] [id number] [place] [address]- 8838 Mar, [facility] [place] [facility] [address] [id number] [place] [address]- 1201 Feb, [facility] [place] [facility] [address] [id number] [place] [address]- 5675 Feb, [facility] [place] [facility] [address] [id number] [place] [address]- 2711 Feb, [facility] [place] [facility] [address] [id number] [place] [address]- 1603 Feb, [facility] [place] [facility] [address] [id number] [place] [address]- 1291 Feb, [facility] [place] [facility] [address] [id number] [place] [address] Feb, [facility] [place] [facility] [address] [id number] [place] [address] Feb, [facility] [place] [facility] [address] [id number] [place] [address] Feb, [facility] [place] [facility] [address] [id number] [place] [address] Jan, [facility] [place] [facility] [address] [id number] [place] [address] Jan, [facility] [place] [facility] [address] [id number] [place] [address] Jan, [facility] [place] [facility] [address] [id number] [place] [address] Jan, [facility] [place] [facility] [address] [id number] [place] [address] Jan, [facility] [place] [facility] [address] [id number] [place] [address] Jan, [facility] [place] [facility] [address] [id number] [place] [address] Jan, [facility] [place] [facility] [address] [id number] [place] [address] Jan, [facility] [place] [facility] [address] [id number] [place] [address] Jan, [facility] [place] [facility] [address] [id number] [place] [address] Jan, [facility] [place] [facility] [address] [id number] [place] [address] Jan, [facility] [place] [facility] [address] [id number] [place] [address] Jan, [facility] [place] [facility] [address] [id number] [place] [address] Jan, [facility] [place] [facility] [address] [id number] [place] [address] Jan, [facility] [place] [facility] [address] [id number] [place] [address] Jan, [facility] [place] [facility] [address] [id number] [place] [address] 4[address] Jan, [facility] [place] [facility] [address] [id number] [place] [address] 48[address] Jan, [facility] [place] [facility] [address] [id number] [place] [address] Jan, [facility] [place] [facility] [address] [id number] [place] [address] 29 Dec, 2013 [facility] [place] [facility] [address] [id number], [place] [address] 29 Dec, 2013 [facility] [place] [facility] [address] [id number] [place] [address] 26 Dec, 2013 [facility] [place] [facility] [address] [id number] [place] [address] Dec, 2013 [facility] [place] [facility] [address] [id number] [place] [address] Dec, 2013 [facility] [place] [facility] [address] [id number] [place] [address] 26 Dec, 2013 [facility] [place] [facility] [address] [id number] [place] [address] 23 Dec, 2013 [facility] [place] [facility] [address] [id number] [place] [address] 23 Dec, 2013 [facility] [place] [facility] [address] [id number] [place] [address]696 22 Dec, 2013 [facility] [place] [facility] [address] [id number] [place] [address]6 22 Dec, 2013 [facility] [place] [facility] [address] [id number] [place] [address] 16 Dec, 2013 [facility] [place] [facility] [address] [id number] [place] [address]- [address] 16 Dec, 2013 [facility] [place] [facility] [address] [id number] [place] [address] 15 Dec, 2013 [facility] [place] [facility] [address] [id number] [place] [address] 15 Dec, 2013 [facility] [place] [facility] [address] [id number] [place] [address] 09 Dec, 2013 [facility] [place] [facility] [address] [id number] [place] [address] 03 Dec, 2013 [facility] [place] [facility] [address] [id number] [place] [address] Dec, 2013 [facility] [place] [facility] [address] [id number] [place] [address] Nov, [facility] [place] [facility] [address] [id number] [place] [address]99 Nov, [facility] [place] [facility] [address] [id number] [place] [address] Nov, [facility] [place] [facility] [address] [id number] [place] [address]- [address] Nov, [facility] [place] [facility] [address] [id number] [place] [address] Nov, [facility] [place] [facility] [address] [id number] [place] [address] Nov, [facility] [place] [facility] [address] [id number] [place] [address] Nov, [facility] [place] [facility] [address] [id number] [place] [address] Nov, [facility] [place] [facility] [address] [id number] [place] [address] Nov, [facility] [place] [facility] [address] [id number] [place] [address] Nov, [facility] [place] [facility] [address] [id number] [place] [address] Nov, [facility] [place] [facility] [address] [id number] [place] [address] 69[address] Nov, [facility] [place] [facility] [address] [id number] [place] [address] Nov, [facility] [place] [facility] [address] [id number] [place] [address] 67[address] Nov, [facility] [place] [facility] [address] [id number] [place] [address] Nov, [facility] [place] [facility] [address] [id number] [facility] [place] [address] Nov, [facility] [place] [facility] [address] [id number] [place] [address] Nov, [facility] [place] [facility] [address] [id number] [place] [address] Nov, [facility] [place] [facility] [address] [id number] [place] [address] 0755 Nov, [facility] [place] [facility] [address] [id number] [place] [address] 8050 Nov, [facility] [place] [facility] [address] [id number] [place] [address] Nov, [facility] [place] [facility] [address] [id number] [place] [address]- 0662 Oct, [facility] [place] [facility] [address] [id number] [place] [address]- 6931 Oct, [facility] [place] [facility] [address] [id number] [place] [address] 4764 Oct, [facility] [place] [facility] [address] [id number] [place] [address]- 1117 Oct, [facility] [place] [facility] [address] [id number] [place] [address]- 2319 Oct, [facility] [place] [facility] [address] [id number] [place] [address]- 3625 Oct, [facility] [place] [facility] [address] [id number] [place] [address]- 4653 Oct, [facility] [place] [facility] [address] [id number] [place] [address]- 6240 Oct, [facility] [place] [facility] [address] [id number] [place] [address] 3309 Oct, [facility] [place] [facility] [address] [id number] [place] [address]- 5066 Oct, [facility] [place] [facility] [address] [id number] [place] [address]- 5045 Oct, [facility] [place] [facility] [address] [id number] [place] [address]- 5109 Oct, [facility] [place] [facility] [address] [id number] [place] [address]- 6058 Oct, [facility] [place] [facility] [address] [id number] [place] [address]- 7691 Oct, [facility] [place] [facility] [address] [id number] [place] [address]- 2683 Oct, [facility] [place] [facility] [address] [id number] [place] [address]- 1104 Sep, [facility] [place] [facility] [address] [id number] [place] [address]- 8750 30 Sep, 2013 [facility] [place] [facility] [address] [id number] [place] [address]- 9747 Sep, [facility] [place] [facility] [address] [id number] [place] [address]- 4962 Sep, [facility] [place] [facility] [address] [id number] [place] [address]- 4700 Sep, [facility] [place] [facility] [address] [id number] [place] [address]- 8598 Sep, [facility] [place] [facility] [address] [id number] [place] [address]- 7059 Sep, [facility] [place] [facility] [address] [id number] [place] [address]- 3515 Sep, [facility] [place] [facility] [address] [id number] [place] [address]- 0009 17 Sep, 2013 [facility] [place] [facility] [address] [id number] [place] [address]- 7480 16 Sep, 2013 [facility] [place] [facility] [address] [id number] [place] [address]- 8679 Sep, [facility] [place] [facility] [address] [id number] [place] [address]- 3998 16 Sep, 2013 [facility] [place] [facility] [address] [id number] [place] [address]- 2912 Sep, [facility] [place] [facility] [address] [id number] [place] [address]- 2333 Sep, [facility] [place] [facility] [address] [id number] [place] [address]- 1827 Sep, [facility] [place] [facility] [address] [id number] [place] [address]- 8196 Sep, [facility] [place] [facility] [address] [id number] [place] [address]- 0799 Sep, [facility] [place] [facility] [address] [id number] [place] [address]- 2830 Sep, [facility] [place] [facility] [address] [id number] [place] [address]- 1996 Sep, [facility] [place] [facility] [address] [id number] [place] [address]- 7820 Sep, [facility] [place] [facility] [address] [id number] [place] [address]- 2043 Sep, [facility] [place] [facility] [address] [id number] [place] [address]- 0887 Sep, [facility] [place] [facility] [address] [id number] [place] [address]- 2245 August, [facility] [place] [facility] [address] [id number] [place] [address]- 3585 August, [facility] [place] [facility] [address] [id number] [place] [address]- 9942 August, [facility] [place] [facility] [address] [id number] [place] [address]- 0890 August, [facility] [place] [facility] [address] [id number] [place] [address]- 9375 August, [facility] [place] [facility] [address] [id number] [place] [address]- 7710 August, [facility] [place] [facility] [address] [id number] [place] [address]- 8024 August, [facility] [place] [facility] [address] [id number] [place] [address]- 9483 August, [facility] [place] [facility] [address] [id number] [place] [address]- 0388 August, [facility] [place] [facility] [address] [id number] [place] [address]- 5272 August, [facility] [place] [facility] [address] [id number] [place] [address]- 4363 August, [facility] [place] [facility] [address] [id number] [place] [address]- 8646 August, [facility] [place] [facility] [address] [id number] [place] [address]- 2108 August, [facility] [place] [facility] [address] [id number] [place] [address]- 4531 August, [facility] [place] [facility] [address] [id number] [place] [address]- 7566 August, [facility] [place] [facility] [address] [id number] [place] [address]- 1175 August, [facility] [place] [facility] [address] [id number] [place] [address]- 5264 August, [facility] [place] [facility] [address] [id number] [place] [address]- 5323 August, [facility] [place] [facility] [address] [id number] [place] [address]- 6292 Jul, [facility] [place] [facility] [address] [id number] [place] [address]- 7769 Jul, [facility] [place] [facility] [address] [id number] [place] [address]- 1291 Jul, [facility] [place] [facility] [address] [id number] [place] [address]- 3053 Jul, [facility] [place] [facility] [address] [id number] [place] [address]- 3126 Jul, [facility] [place] [facility] [address] [id number] [place] [address]- 1200 Jul, [facility] [place] [facility] [address] [id number] [place] [address]- 6739 22 Jul, 2013 [facility] [address] [id number] [place] [address]- 3777 22 Jul, 2013 [facility] [place] [facility] [address] [id number] [place] [address]- 8232 22 Jul, 2013 [facility] [address] [id number] [place] [address]- 9557 Jul, [facility] [place] [facility] [address] [id number] [place] [address]- 5696 21 Jul, 2013 [facility] [address] [id number] [place] [address]- 3397 18 Jul, 2013 [facility] [address] [id number] [place] [address]- 6211 18 Jul, 2013 [facility] [address] [id number] [place] [address]- 8419 17 Jul, 2013 [facility] [address] [id number] [place] [address]- 6239 17 Jul, 2013 [facility] [place] [facility] [address] [id number] [place] [address]- 9992 17 Jul, 2013 [facility] [address] [id number] [place] [address]- 8654 17 Jul, 2013 [facility] [place] [facility] [address] [id number] [place] [address]- 8760 16 Jul, 2013 [facility] [place] [facility] [address] [id number] [place] [address]- 3086 16 Jul, 2013 [facility] [place] [facility] [address] [id number] [place] [address]- 5030 15 Jul, 2013 [facility] [place] [facility] [address] [id number] [place] [address]- 9591 15 Jul, 2013 [facility] [place] [facility] [address] [id number] [place] [address]- 5309 14 Jul, 2013 [facility] [place] [facility] [address] [id number] [place] [address]- 8025 14 Jul, 2013 [facility] [place] [facility] [address] [id number] [place] [address]- 2763 Jul, [facility] [place] [facility] [address] [id number] [place] [address]- 6545 Jul, [facility] [place] [facility] [address] [id number] [place] [address]- 3194 Jul, [facility] [place] [facility] [address] [id number] [place] [address]- 8976 Jul, [facility] [place] [facility] [address] [id number] [place] [address]- 4546 Jul, [facility] [place] [facility] [address] [id number] [place] [address]- 6651 Jul, [facility] [place] [facility] [address] [id number] [place] [address]- 4546 17 Jun, 2013 [facility] [place] [facility] [address] [id number] [place] [address]- 4337 17 Jun, 2013 [facility] [place] [facility] [address] [id number] [place] [address]- 0931 17 Jun, 2013 [facility] [place] [facility] [address] [id number] [place] [address]- 9550 17 Jun, 2013 [facility] [place] [facility] [address] [id number] [place] [address]- 0591 13 Jun, 2013 [facility] [place] [facility] [address] [id number] [place] [address]- 3623 13 Jun, 2013 [facility] [place] [facility] [address] [id number] [place] [address]- 5023 11 Jun, 2013 [facility] [place] [facility] [address] [id number] [place] [address]- 3999 11 Jun, 2013 [facility] [place] [facility] [address] [id number] [place] [address]- 9687 10 Jun, 2013 [facility] [place] [facility] [address] [id number] [place] [address]- 1202 Jun, [facility] [place] [facility] [address] [id number] [place] [address]- 6044 Jun, [facility] [place] [facility] [address] [id number] [place] [address]- 1706 Jun, [facility] [place] [facility] [address] [id number] [place] [address]- 2753 May, [facility] [place] [facility] [address] [id number] [place] [address]- 4131 May, [facility] [place] [facility] [address] [id number] [place] [address]- 9534 May, [facility] [place] [facility] [address] [id number] [place] [address]- 5759 May, [facility] [place] [facility] [address] [id number] [place] [address]- 3000 May, [facility] [place] [facility] [address] [id number] [place] [address]- 6173 May, [facility] [place] [facility] [address] [id number] [place] [address]- 0698 May, [facility] [place] [facility] [address] [id number] [place] [address]- 5475 May, [facility] [place] [facility] [address] [id number] [place] [address]- 1968 May, [facility] [place] [facility] [address] [id number] [place] [address]- 2976 May, [facility] [place] [facility] [address] [id number] [place] [address]- 4172 Apr, [facility] [place] [facility] [address] [id number] [place] [address]- 9370 Apr, [facility] [address] [id number] [place] [address]- 5730 Apr, [facility] [place] [facility] [address] [id number] [place] [address]- 0321 Apr, [facility] [place] [facility] [address] [id number] [place] [address]- 8963 Apr, [facility] [place] [facility] [address] [id number] [place] [address]- 9435 Apr, [facility] [place] [facility] [address] [id number] [place] [address]- 4216 Apr, [facility] [place] [facility] [address] [id number] [place] [address]- 8464 Apr, [facility] [place] [facility] [address] [id number] [place] [address]- 4526 Apr, [facility] [place] [facility] [address] [id number] [place] [address]- 2228 Apr, [facility] [place] [facility] [address] [id number] [place] [address]- 7561 Mar, [facility] [place] [facility] [address] [id number] [place] [address]- 1649 Mar, [facility] [place] [facility] [address] [id number] [place] [address]- 4988 Mar, [facility] [place] [facility] [address] [id number], [place] [address]- 1371 Mar, [facility] [place] [facility] [address] [id number] [place] [address]- 3488 Mar, [facility] [place] [facility] [address] [id number] [place] [address]- 0901 Mar, [facility] [place] [facility] [address] [id number] [place] [address]- 5138 Feb, [facility] [place] [facility] [address] [id number] [place] [address]- 6317 11 Feb, 2013 [facility] [place] [facility] [address] [id number] [place] [address]- 3339 Feb, [facility] [place] [facility] [address] [id number] [place] [address]- 7965 Jan, [facility] [place] [facility] [address] [id number] [place] [address]- 8349 Jan, [facility] [place] [facility] [address] [id number] [place] [address]- 9990 Jan, [facility] [place] [facility] [address] [id number] [place] [address]- 5861 Jan, [facility] [place] [facility] [address] [id number] [place] [address]- 4223 Jan, [facility] [place] [facility] [address] [id number] [place] [address]- 2902 Jan, [facility] [place] [facility] [address] [id number] [place] [address]- 8352 Jan, [facility] [place] [facility] [address] [id number] [place] [address]- 2843 Jan, [facility] [place] [facility] [address] [id number] [place] [address]- 7940 Jan, [facility] [place] [facility] [address] [id number] [place] [address]- 7847 Jan, [facility] [place] [facility] [address] [id number] [place] [address]- 5385 30 Dec, 2012 [facility] [place] [facility] [address] [id number] [place] [address]- 1979 25 Dec, 2012 [facility] [place] [facility] [address] [id number] [place] [address]- 8804 11 Dec, 2012 [facility] [place] [facility] [address] [id number] [place] [address]- 9612 09 Dec, 2012 [facility] [place] [facility] [address] [id number] [place] [address]- 8334 Dec, [facility] [place] [facility] [address] [id number] [place] [address]- 5874 Dec, [facility] [place] [facility] [address] [id number] [place] [address]- 2915 Nov, [facility] [place] [facility] [address] [id number] [place] [address]- 4084 Nov, [facility] [place] [facility] [address] [id number] [place] [address]- 6246 Nov, [facility] [place] [facility] [address] [id number] [place] [address]- 6690 Nov, [facility] [place] [facility] [address] [id number] [place] [address]- 2435 Nov, [facility] [place] [facility] [address] [id number] [place] [address]- 0223 Nov, [facility] [place] [facility] [address] [id number] [place] [address]- 0320 Nov, [facility] [place] [facility] [address] [id number] [place] [address]- 5376 Nov, [facility] [place] [facility] [address] [id number] [place] [address]- 8947 Nov, [facility] [place] [facility] [address] [id number] [place] [address]- 5942 Nov, [facility] [place] [facility] [address] [id number] [place] [address]- 0354 Nov, [facility] [place] [facility] [address] [id number] [place] [address]- 3937 Nov, [facility] [place] [facility] [address] [id number] [place] [address]- 3948 Oct, [facility] [place] [facility] [address] [id number] [place] [address]- 5106 Oct, [facility] [address] [id number] [place] [address]- 8292 Oct, [facility] [address] [id number] [place] [address]- 4115 Sep, [facility] [address] [id number] [place] [address]- 2683 Sep, [facility] [place] [facility] [address] [id number] [place] [address]- 3400 Sep, [facility] [address] [id number] [place] [address]- 8664 August, [facility] [address] [id number] [place] [address]- 0540 August, [facility] [address] [id number] [place] [address]- 8745 August, [facility] [address] [id number] [place] [address]- 3408 August, [facility] [address] [id number] [place] [address]- 9222 August, [facility] [address] [id number] [place] [address]- 8060 August, [facility] [address] [id number] [place] [address]- 7609 Jul, [facility] [place] [facility] [address] [id number] [place] [address]- 6765 15 Jul, 2012 [facility] [place] [facility] [address] [id number] [place] [address]- 4857 11 Jul, 2012 [facility] [place] [facility] [address] [id number] [place] [address]- 5298 Jul, [facility] [place] [facility] [address] [id number] [place] [address]- 1670 04 Jul, 2012 [facility] [place] [facility] [address] [id number] [place] [address] 2546 04 Jul, 2012 [facility] [address] [id number] [place] [address]- 2306 2012 [facility] [address] [id number] [place] [address]- 7786 20 Jun, 2012 [facility] [address] [id number] [place] [address]- 1116 18 Jun, 2012 [facility] [address] [id number] [place] [address]- 8795 14 Jun, 2012 [facility] [address] [id number] [place] [address]- 7536 04 Jun, 2012 [facility] [address] [id number] [place] [address]- 0306 13 May, 2012 [facility] [address] [id number] [place] [address]- 3626 12 May, 2012 [facility] [address] [id number] [place] [address]- 5049 11 May, 2012 [facility] [address] [id number] [place] [address]- 3476 08 May, 2012 [facility] [address] [facility] [id number] [place] [address]- 1316 17 Apr, 2012 [facility] [address] [id number] [place] [address]- 7546 Apr, [facility] [address] [id number] [place] [address]- 2546 Apr, [facility] [address] [id number] [place] [address]- 6406 Mar, [facility] [place] [facility] [address] [id number] [place] [address]- 2546 Mar, [facility] [address] [id number] [place] [address]- 0994 Mar, [facility] [place] [facility] [address] [id number] [place] [address]- 9756 Mar, [facility] [place] [facility] [address] [id number] [place] [address] Mar, [facility] [place] [facility] [address] [id number] [place] [address] Mar, [facility] [place] [facility] [address] [id number] [place] [address] Mar, [facility] [place] [facility] [address] [id number] [place] [address] Mar, [facility] [place] [facility] [address] [id number] [place] [address] Feb, [facility] [place] [facility] [address] [id number] [place] [address] Feb, [facility] [place] [facility] [address] [id number] [place] [address] Feb, [facility] [place] [facility] [address] [id number] [place] [address]58 Feb, [facility] [place] [facility] [address] [id number] [place] [address] 7768 Feb, [facility] [place] [facility] [address] [id number], [place] [address] Feb, [facility] [place] [facility] [address] [id number], [place] [address] Feb, [facility] [place] [facility] [address] [id number] [place] [address]- 7626 Feb, [facility] [place] [facility] [address] [id number], [place] [address] Feb, [facility] [place] [facility] [address] [id number] [place] [address]- 8434 Feb, [facility] [place] [facility] [address] [id number] [place] [address]- 365[address] 09 Feb, 2012 [facility] [place] [facility] [address] [id number] [place] [address]- [address] 08 Feb, 2012 [facility] [place] [facility] [address] [id number] [place] [address]- 1140 Feb, [facility] [place] [facility] [address] [id number] [place] [address]- 1488 Feb, [facility] [place] [facility] [address] [id number] [place] [address]- [address] Feb, [facility] [place] [facility] [address] [id number] [place] [address]- 4948 Feb, [facility] [place] [facility] [address] [id number] [place] [address]- [address] Feb, [facility] [place] [facility] [address] [id number] [place] [address]- [address]196 Feb, [facility] [place] [facility] [address] [id number] [place] [address]- [address] Jan, [facility] [place] [facility] [address] [id number] [place] [address]- 3448 Jan, [facility] [place] [facility] [address] [facility] [id number] [place] [address]- 4744 Jan, [facility] [place] [facility] [address] [id number] [place] [address]- [address]258 Jan, [facility] [place] [facility] [address] [id number], [place] [address] Jan, [facility] [place] [facility] [address] [id number] [place] [address]- [address]44 19 Jan, 2012 [facility] [place] [facility] [address] [facility] [id number] [place] [address]- 27[address] Jan, [facility] [place] [facility] [address] [id number], [place] [address] Jan, [facility] [place] [facility] [address] [id number] [place] [address]- [address]7 15 Jan, 2012 [facility] [place] [facility] [address] [id number] [place] [address] 15 Jan, 2012 [facility] [place] [facility] [address] [id number] [place] [address]- 6[address] Jan, [facility] [place] [facility] [address] [id number] [place] [address]- 2457 11 Jan, 2012 [facility] [place] [facility] [address] [id number] [place] [address]- 9558 10 Jan, 2012 [facility] [place] [facility] [address] [id number] [place] [address]- 8453 09 Jan, 2012 [facility] [place] [facility] [address] [id number] [place] [address]- 1043 02 Jan, 2012 [facility] [place] [facility] [address] [id number] [place] [address]- [address]65 29 Dec, 2011 [facility] [place] [facility] [address] [id number] [place] [address]- [address]484 28 Dec, 2011 [facility] [place] [facility] [address] [id number] [place] [address]- [address]125 27 Dec, 2011 [facility] [place] [facility] [address] [id number] [place] [address]- [address]058 26 Dec, 2011 [facility] [place] [facility] [address] [id number] [place] [address]- [address]321 24 Nov, 2011 [facility] [place] [facility] [address] [id number] [place] [address]- 7685 Nov, [facility] [place] [facility] [address] [id number] [place] [address]- 8361 Nov, [facility] [place] [facility] [address] [id number] [place] [address]- 8295 Nov, [facility] [place] [facility] [address] [id number] [place] [address]- 3856 Nov, [facility] [place] [facility] [address] [id number] [place] [address]- 7672 Nov, [facility] [place] [facility] [address] [id number] [place] [address]- 0565 Nov, [facility] [place] [facility] [address] [id number] [place] [address]- 0486 Nov, [facility] [place] [facility] [address] [id number] [place] [address]- 0833 Nov, [facility] [place] [facility] [address] [id number] [place] [address]- 7507 Nov, [facility] [place] [facility] [address] [id number] [place] [address]- 9972 Nov, [facility] [place] [facility] [address] [id number] [place] [address]- [address]85 Oct, [facility] [place] [facility] [address] [id number] [place] [address]- 7199 Oct, [facility] [place] [facility] [address] [id number] [place] [address]- 8787 Oct, [facility] [place] [facility] [address] [id number] [place] [address]- 7141 Oct, [facility] [place] [facility] [address] [id number] [place] [address]- 4883 Oct, [facility] [place] [facility] [address] [id number] [place] [address]- 7424 Oct, [facility] [place] [facility] [address] [id number] [place] [address]- 0482 Oct, [facility] [place] [facility] [address] [id number] [place] [address]- 7412 Oct, [facility] [place] [facility] [address] [id number] [place] [address]- 8532 Sep, [facility] [place] [facility] [address] [id number] [place] [address]- 6707 28 Sep, 2011 [facility] [address] [id number] [place] [address]- 7726 Sep, [facility] [address] [id number] [place] [address]- 3580 Sep, [facility] [address] [id number] [place] [address]- 8733 Sep, [facility] [address] [id number] [place] [address]- 0501 Sep, [facility] [address] [id number] [place] [address]- 0760 Sep, [facility] [address] [id number] [place] [address]- 2388 August, [facility] [address] [id number] [place] [address]- 5662 August, [facility] [address] [id number] [place] [address]- 7980 August, [facility] [address] [id number] [place] [address]- 2260 August, [facility] [address] [id number] [place] [address]- 7664 August, [facility] [address] [id number] [place] [address]- 8584 August, [facility] [address] [id number] [place] [address] August, [facility] [place] [facility] [address] [id number] [place] August, [facility] [address] [id number] [place] [address] Jul, [facility] [address] [id number] [place] [address] 17 Jul, 2011 [facility] [address] [id number] [place] [address] 13 Jul, 2011 [facility] [place] [facility] [address] [id number] [place] [address] 11 Jul, 2011 [facility] [place] [facility] [address] [id number] [place] [address] 05 Jul, 2011 [facility] [place] [facility] [address] [id number] [place] [address] 28 Jun, 2011 [facility] [place] [facility] [address] [id number] [place] [address] 2011 [facility] [place] [facility] [address] [id number] [place] [address] 20 Jun, 2011 [facility] [place] [facility] [address] [id number] [place] [address] 19 Jun, 2011 [facility] [place] [facility] [address] [id number] [place] [address] Jun, [facility] [place] [facility] [address] [id number] [place] [address] Jun, [facility] [place] [facility] [address] [id number] [place] [address] Jun, [facility] [place] [facility] [address] [id number] [place] [address] Jun, [facility] [place] [facility] [address] [id number] [place] [address] 06 Jun, 2011 [facility] [place] [facility] [address] [id number] [place] [address] May, [facility] [place] [facility] [address] [id number] [place] [address] 24 May, 2011 [facility] [place] [facility] [address] [id number] [place] [address] May, [facility] [place] [facility] [address] [id number] [place] [address] 23 May, 2011 [facility] [address] [id number] [place] [address] 11 May, 2011 [facility] [address] [id number] [place] [address] 10 May, 2011 [facility] [address] [id number] [place] [address] 07 May, 2011 [facility] [address] [id number] [place] [address] May, [facility] [address] [id number] [place] [address] Apr, [facility] [address] [id number] [place] [address] Apr, [facility] [address] [facility] [id number] [place] [address] Apr, [facility] [address] [id number] [place] [address] Apr, [facility] [id number] [place] [address] Apr, [facility] [address] [facility] [id number] [place] [address] Apr, [facility] [address] [facility] [id number] [place] [address] Mar, [facility] [address] [id number] [place] [address] Mar, [facility] [place] [facility] [address] [id number] [place] [address] Mar, [facility] [address] [id number] [place] [address] Mar, [facility] [address] [facility] [id number] [place] [address] 15 Mar, 2011 [facility] [place] [facility] [address] [id number] [place] [address] Mar, [facility] [place] [facility] [address] [id number] [place] [address] 47[address] Mar, [facility] [place] [facility] [address] [id number] [place] [address] Mar, [facility] [place] [facility] [address] [id number] [place] [address] Mar, [facility] [place] [facility] [address] [id number] [place] [address] Mar, [facility] [place] [facility] [address] [id number] [place] [address] Mar, [facility] [place] [facility] [address] [id number] [place] [address] Mar, [facility] [place] [facility] [address] [id number] [place] [address] Mar, [facility] [place] [facility] [address] [id number] [place] [address] Feb, [facility] [place] [facility] [address] [id number], [place] [address] Feb, [facility] [place] [facility] [address] [id number], [place] [address] Feb, [facility] [place] [facility] [address] [id number], [place] [address] Feb, [facility] [place] [facility] [address] [id number], [place] [address] Feb, [facility] [place] [facility] [address] [id number], [place] [address] Feb, [facility] [place] [facility] [address] [facility] [id number], [place] [address] Feb, [facility] [place] [facility] [address] [id number], [place] [address] 20 Jan, 2011 [facility] [address] [facility] [id number], [place] [address]46 17 Jan, 2011 [facility] [address] [facility] [id number], [place] [address]46 10 Jan, 2011 [facility] [address] [facility] [id number], [place] [address] 15 Nov, 2010 [facility] [address] [facility] [id number], [place] [address] 2546 22 Mar, 2010 [facility] [address] [facility] [id number], [place] [address] Mar, [facility] [address] [facility] [id number], [place] [address] Mar, [facility] [id number], [place] [address] Mar, [facility] [address] [id number], [place] [address] Mar, [facility] [address] [id number], [place] [address] 30 Feb, 2010 [facility] [address] [id number], [place] [address] 30 Feb, 2010 [facility] [id number], [place] [address] 24 Feb, 2010 [facility] [address] [id number], [place] [address] Feb, [facility] [address] [id number], [place] [address] Feb, [facility] [address] [id number], [place] [address] 15 Feb, 2010 IMMUNIZATIONS No Known Immunizations SOCIAL HISTORY Never Assessed REASON FOR VISIT Transition of Care from Billie gonzales rn, Would like to visit about medication/strategies for weight loss/management, States having increased memory loss, partner reports is not wearing o2 as ordered PLAN OF CARE Activity Details Follow Up 4 Weeks Reason:HTN/Weight VITAL SIGNS Height 60 in 2017-04-30 Weight 212.2 lbs 2017-04-30 Temperature 97.8 degrees Fahrenheit 2017-04-30 Heart Rate 78 bpm 2017-04-30 Respiratory Rate 20 2017-04-30 BMI 41.44 kg/m2 2017-04-30 Blood pressure systolic 136 mmHg 2017-04-30 Blood pressure diastolic 84 mmHg 2017-04-30 MEDICATIONS Medication Instructions Dosage Frequency Start Date End Date Duration Status Oxygen 2 L/NC subcutaneously at night only as directed Jul, Active Amitriptyline HCl 100 mg Orally Once at bedtime for sleep 1 tablets 30 days Active Requip 4 MG Orally Once a day as directed 24h Feb, 30 days Active Albuterol Sulfate 90 mcg/actuation 2 puffs by Inhalation route every 4-6 hours as needed PRN cough or wheezing Oct, Active Prazosin HCl 1 MG Orally Once a day 1 capsule at bedtime 24h Apr, 30 day(s) Active Exemestane 25 MG Orally Once a day 1 tablet with a meal 24h Active VESIcare 5 mg Orally Once a day 1 tablet 24h 08 Aug, 2016 Not-Taking Ibuprofen 600 MG Orally every 6 hrs 1 tablet as needed for pain 6h Nov, 30 days Active Omeprazole 20 mg Orally 2 times a day 1 capsule 12h 90 days Active Calcium + D3 600-800 MG-UNIT Orally twice a day 1 tablet with a meal 12h Apr, 90 days Active Albuterol Sulfate (2.5 MG/3ML) 0.083% Inhalation every 4-6 hours as needed for cough or wheeze 3 ml 09 Jan, 2012 Active Hydrocodone-Acetaminophen 5-325 MG Orally every 6 hrs 1 tablet as needed 6h Not-Taking Melatonin 5 MG Orally Once a day 1 tablet at bedtime as needed with food 24h Active Diltiazem HCl 120 MG Orally daily TAKE 1 TABLET BY MOUTH 2 TIMES A DAY 24h Active Singulair 10 mg Orally Once a day 1 tablet 24h 15 Aug, 2016 90 days Active Contrave 8-90 MG Orally Twice a day 1 tab in the pm x 1 week, then 1 tab in am and 1 in pm x 1 wk, then 2 in pm and 1 in am x 1 wk, then 2 tabs bid 12h Apr, Jul, 30 day(s) Active Symbicort Active RESULTS No Results PROCEDURES Procedure Date Ordered Result Body Site [facility] VISIT ESTABLISHED PATIENT Apr 30, 2017 INSTRUCTIONS MEDICATIONS ADMINISTERED No Known Medications [...]
--- OUTSIDE RECORDS SUMMARY | 2017-12-22 04:43 | XMS REPORT ---
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 [place] [address]- 8196 18 Jun, 2014 [facility] [place] [facility] [address] [id number] [place] [address]- 6066 18 Jun, 2014 [facility] [place] [facility] [address] [id number] [place] [address]- 1038 18 Jun, 2014 [facility] [place] [facility] [address] [id number] [place] [address]- 4453 17 Jun, 2014 [facility] [place] [facility] [address] [id number] [place] [address]- 7708 17 Jun, 2014 [facility] [place] [facility] [address] [id number] [place] [address]- 1096 17 Jun, 2014 [facility] [place] [facility] [address] [id number] [place] [address]- 0442 17 Jun, 2014 [facility] [place] [facility] [address] [id number] [place] [address]- 6169 13 Jun, 2014 [facility] [place] [facility] [address] [id number] [place] [address]- 5202 13 Jun, 2014 [facility] [place] [facility] [address] [id number] [place] [address]- 7149 12 Jun, 2014 [facility] [place] [facility] [address] [id number] [place] [address]- 5547 12 Jun, 2014 [facility] [place] [facility] [address] [id number] [place] [address]- 6008 10 Jun, 2014 [facility] [place] [facility] [address] [id number] [place] [address]- 7360 10 Jun, 2014 [facility] [place] [facility] [address] [id number] [place] [address]- 5191 10 Jun, 2014 [facility] [place] [facility] [address] [id number] [place] [address]- 8944 10 Jun, 2014 [facility] [place] [facility] [address] [facility] [id number] [place] [address]- 3402 Jun, 2014 [facility] [place] [facility] [address] [facility] [id number] [place] [address]- 8612 Jun, 2014 [facility] [place] [facility] [address] [facility] [id number] [place] [address]- 8503 Jun, 2014 [facility] [place] [facility] [address] [facility] [id number] [place] [address]- 5430 Jun, 2014 [facility] [place] [facility] [address] [facility] [id number] [place] [address]- 8829 Jun, [facility] [place] [facility] [address] [id number] [place] [address]- 8172 Jun, 2014 [facility] [place] [facility] [address] [facility] [id number] [place] [address]- 9917 May, 2014 [facility] [place] [facility] [address] [facility] [id number] [place] [address]- 3152 May, 2014 [facility] [place] [facility] [address] [facility] [id number] [place] [address]- 0541 May, 2014 [facility] [place] [facility] [address] [facility] [id number] [place] [address]- 7044 May, 2014 [facility] [place] [facility] [address] [facility] [id number] [place] [address]- 3613 May, 2014 [facility] [place] [facility] [address] [facility] [id number], [place] [address]- 1802 May, 2014 [facility] [place] [facility] [address] [facility] [id number] [place] [address]- 2170 May, 2014 [facility] [place] [facility] [address] [facility] [id number] [place] [address]- 5424 May, 2014 [facility] [place] [facility] [address] [facility] [id number], [place] [address]- 4039 May, 2014 [facility] [place] [facility] [address] [facility] [id number], [place] [address]- 0760 May, 2014 [facility] [place] [facility] [address] [id number] [place] [address]- 6146 May, 2014 [facility] [place] [facility] [address] [id number] [place] 5136 May, 2014 [facility] [place] [facility] [address] [id number] [place] [address]- 9516 May, 2014 [facility] [place] [facility] [address] [id number] [place] [address]- 6108 May, 2014 [facility] [place] [facility] [address] [id number] [place] [address]- 6348 May, 2014 [facility] [place] [facility] [address] [id number] [place] [address]- 3942 May, 2014 [facility] [place] [facility] [address] [facility] [id number] [place] [address]- 6636 Apr, [facility] [place] [facility] [address] [id number] [place] [address]- 6589 Apr, [facility] [place] [facility] [address] [id number] [place] [address]- 4085 Apr, [facility] [place] [facility] [address] [facility] [id number] [place] [address]- 2037 Apr, [facility] [place] [facility] [address] [id number] [place] [address]- 6689 Apr, [facility] [place] [facility] [address] [id number] [place] [address]- 3271 Apr, [facility] [place] [facility] [address] [id number] [place] [address]- 0445 Apr, [facility] [place] [facility] [address] [id number] [place] [address]- 4729 Apr, [facility] [place] [facility] [address] [id number] [place] [address]- 6411 Apr, [facility] [place] [facility] [address] [id number] [place] [address]- 2540 Apr, [facility] [place] [facility] [address] [id number] [place] [address]- 1974 Apr, [facility] [place] [facility] [address] [id number] [place] [address]- 1165 Apr, [facility] [place] [facility] [address] [id number] [place] [address]- 4177 Apr, [facility] [place] [facility] [address] [id number] [place] [address]- 1715 Apr, [facility] [place] [facility] [address] [id number] [place] [address]- 1553 Apr, [facility] [place] [facility] [address] [id number] [place] [address]- 3989 Mar, [facility] [place] [facility] [address] [id number] [place] [address]- 0121 Mar, [facility] [place] [facility] [address] [id number] [place] [address]- 0405 Mar, [facility] [place] [facility] [address] [id number] [place] [address]- 7139 Mar, [facility] [place] [facility] [address] [id number] [place] [address]- 5503 Mar, [facility] [place] [facility] [address] [id number] [place] [address]- 8430 Mar, [facility] [place] [facility] [address] [id number] [place] [address]- 4932 Mar, [facility] [place] [facility] [address] [id number] [place] [address]- 3640 Mar, [facility] [place] [facility] [address] [id number] [place] 3553 Mar, [facility] [place] [facility] [address] [id number] [place] [address]- 6191 Mar, [facility] [place] [facility] [address] [id number] [place] [address]- 0051 Mar, [facility] [place] [facility] [address] [id number] [place] [address]- 1638 Mar, [facility] [place] [facility] [address] [id number] [place] [address]- 6962 Mar, [facility] [place] [facility] [address] [id number] [place] [address]- 4318 Mar, [facility] [place] [facility] [address] [id number] [place] [address]- 2320 Mar, [facility] [place] [facility] [address] [id number] [place] [address]- 1844 Mar, [facility] [place] [facility] [address] [id number] [place] [address]- 9716 Mar, [facility] [place] [facility] [address] [id number] [place] [address]- 7141 Mar, [facility] [place] [facility] [address] [id number] [place] [address]- 4370 Feb, [facility] [place] [facility] [address] [id number] [place] [address]- 9638 Feb, [facility] [place] [facility] [address] [id number] [place] [address]- 6944 Feb, [facility] [place] [facility] [address] [id number] [place] [address]- 8260 Feb, [facility] [place] [facility] [address] [id number] [place] [address]- 3182 Feb, [facility] [place] [facility] [address] [id number] [place] [address]- 0138 Feb, [facility] [place] [facility] [address] [id number] [place] [address]- 8539 Feb, [facility] [place] [facility] [address] [id number] [place] [address]- 2268 Feb, [facility] [place] [facility] [address] [id number] [place] [address]- 4921 Jan, [facility] [place] [facility] [address] [id number] [place] [address]- 6523 Jan, [facility] [place] [facility] [address] [id number] [place] [address]- 2597 Jan, [facility] [place] [facility] [address] [id number] [place] [address]- 0970 Jan, [facility] [place] [facility] [address] [id number] [place] [address]- 5115 Jan, [facility] [place] [facility] [address] [id number] [place] [address]- 1200 Jan, [facility] [place] [facility] [address] [id number] [place] [address]- 6443 Jan, [facility] [place] [facility] [address] [id number] [place] [address]- 7493 Jan, [facility] [place] [facility] [address] [id number] [place] [address]- 2737 Jan, [facility] [place] [facility] [address] [id number] [place] [address]- 6698 Jan, [facility] [place] [facility] [address] [id number] [place] [address] Jan, [facility] [place] [facility] [address] [id number] [place] [address] Jan, [facility] [place] [facility] [address] [id number] [place] [address] Jan, [facility] [place] [facility] [address] [id number] [place] [address] Jan, [facility] [place] [facility] [address] [id number] [place] [address] 16 Jan, 2014 [facility] [place] [facility] [address] [id number] [place] [address]15 16 Jan, 2014 [facility] [place] [facility] [address] [id number] [place] [address] 13 Jan, 2014 [facility] [place] [facility] [address] [id number] [place] [address] 13 Jan, 2014 [facility] [place] [facility] [address] [id number] [place] [address] 29 Dec, 2013 [facility] [place] [facility] [address] [id number] [place] [address] 29 Dec, 2013 [facility] [place] [facility] [address] [id number] [place] [address] 26 Dec, 2013 [facility] [place] [facility] [address] [id number] [place] [address] 26 Dec, 2013 [facility] [place] [facility] [address] [id number] [place] [address] 26 Dec, 2013 [facility] [place] [facility] [address] [id number] [place] [address]- 5564 26 Dec, 2013 [facility] [place] [facility] [address] [id number] [place] [address]- [address] 23 Dec, 2013 [facility] [place] [facility] [address] [id number], [place] [address] 23 Dec, 2013 [facility] [place] [facility] [address] [id number], [place] [address]67 22 Dec, 2013 [facility] [place] [facility] [address] [id number] [place] [address]40 22 Dec, 2013 [facility] [place] [facility] [address] [id number], [place] [address] 16 Dec, 2013 [facility] [place] [facility] [address] [id number] [place] [address]- 1435 16 Dec, 2013 [facility] [place] [facility] [address] [id number] [place] [address] 8488 15 Dec, 2013 [facility] [place] [facility] [address] [id number] [place] [address]- [address] 15 Dec, 2013 [facility] [place] [facility] [address] [id number] [place] [address]- [address]51 09 Dec, 2013 [facility] [place] [facility] [address] [id number] [place] [address] Dec, [facility] [place] [facility] [address] [id number] [place] [address] Dec, [facility] [place] [facility] [address] [id number] [place] [address] Nov, [facility] [place] [facility] [address] [id number] [place] [address] Nov, [facility] [place] [facility] [address] [id number] [place] [address] 8866 Nov, [facility] [place] [facility] [address] [id number] [place] [address] 4314 Nov, [facility] [place] [facility] [address] [id number] [place] [address] 1994 Nov, [facility] [place] [facility] [address] [id number] [place] [address] Nov, [facility] [place] [facility] [address] [id number] [place] [address]990 Nov, [facility] [place] [facility] [address] [id number] [place] [address] 6793 Nov, [facility] [place] [facility] [address] [id number] [place] [address] 1715 Nov, [facility] [place] [facility] [address] [id number] [place] [address] 9758 Nov, [facility] [place] [facility] [address] [id number] [place] [address]- 1529 Nov, [facility] [place] [facility] [address] [id number] [place] [address] 62[address] Nov, [facility] [place] [facility] [address] [id number] [place] [address]281 Nov, [facility] [place] [facility] [address] [id number] [place] [address] Nov, [facility] [place] [facility] [address] [id number] [place] [address] Nov, [facility] [place] [facility] [address] [id number] [place] [address] Nov, [facility] [place] [facility] [address] [id number] [place] [address] Nov, [facility] [place] [facility] [address] [id number] [place] [address]- 9040 Nov, [facility] [place] [facility] [address] [id number] [place] [address]164 Nov, [facility] [place] [facility] [address] [id number] [facility] [address] Nov, [facility] [place] [facility] [address] [id number] [place] [address]- 4559 Nov, [facility] [place] [facility] [address] [id number] [place] [address] 2419 Oct, [facility] [place] [facility] [address] [id number] [facility] [address] Oct, [facility] [place] [facility] [address] [id number] [place] [address]- 5444 Oct, [facility] [place] [facility] [address] [id number] [place] [address]- [address]228 Oct, [facility] [place] [facility] [address] [id number] [place] [address]- 4667 Oct, [facility] [place] [facility] [address] [id number] [place] [address] 8105 Oct, [facility] [place] [facility] [address] [id number] [place] [address]- 5799 Oct, [facility] [place] [facility] [address] [id number] [place] [address] Oct, [facility] [place] [facility] [address] [id number] [place] [address] Oct, [facility] [place] [facility] [address] [id number] [place] [address] 1318 Oct, [facility] [place] [facility] [address] [id number] [place] [address] 7949 Oct, [facility] [place] [facility] [address] [id number] [place] [address] 8382 Oct, [facility] [place] [facility] [address] [id number] [place] [address]- 1582 Oct, [facility] [place] [facility] [address] [id number] [place] [address] 0536 Oct, [facility] [place] [facility] [address] [id number] [place] [address] 5969 Oct, [facility] [place] [facility] [address] [id number] [place] [address] 9219 Sep, [facility] [place] [facility] [address] [id number] [place] [address] 6906 Sep, [facility] [place] [facility] [address] [id number] [place] [address] 2551 Sep, [facility] [place] [facility] [address] [id number] [place] [address]- 0260 Sep, [facility] [place] [facility] [address] [id number] [place] [address] 5020 Sep, [facility] [place] [facility] [address] [id number] [place] [address]- 1741 Sep, [facility] [place] [facility] [address] [id number] [place] [address]- 1574 18 Sep, 2013 [facility] [place] [facility] [address] [id number] [place] [address]- 0461 18 Sep, 2013 [facility] [place] [facility] [address] [id number] [place] [address]- 0094 17 Sep, 2013 [facility] [place] [facility] [address] [id number] [place] [address]- 8134 16 Sep, 2013 [facility] [place] [facility] [address] [id number] [place] [address]- 9025 Sep, [facility] [place] [facility] [address] [id number] [place] [address]- 0242 Sep, [facility] [place] [facility] [address] [id number] [place] [address]- 3744 Sep, [facility] [place] [facility] [address] [id number] [place] [address]- 1288 Sep, [facility] [place] [facility] [address] [id number] [place] [address]- 9364 Sep, [facility] [place] [facility] [address] [id number] [place] [address]- 5155 Sep, [facility] [place] [facility] [address] [id number] [place] [address]- 0952 09 Sep, 2013 [facility] [place] [facility] [address] [id number] [place] [address]- 7954 04 Sep, 2013 [facility] [place] [facility] [address] [id number] [place] [address]- 2158 Sep, [facility] [place] [facility] [address] [id number] [place] [address]- 6995 Sep, [facility] [place] [facility] [address] [id number] [place] [address]- 5141 Sep, [facility] [place] [facility] [address] [id number] [place] [address]- 3154 Sep, [facility] [place] [facility] [address] [id number] [place] [address]- 5922 August, [facility] [place] [facility] [address] [id number] [place] [address]- 5233 August, [facility] [place] [facility] [address] [id number] [place] [address] 8857 August, [facility] [place] [facility] [address] [id number] [place] [address]- 3607 August, [facility] [address] [id number] [place] [address]- 9584 August, [facility] [place] [facility] [address] [id number] [place] [address]- 4881 August, [facility] [place] [facility] [address] [id number] [place] [address]- 6999 August, [facility] [place] [facility] [address] [id number] [place] [address]- 4373 August, [facility] [place] [facility] [address] [id number] [place] [address]- 8159 August, [facility] [place] [facility] [address] [id number] [place] [address] 8649 August, [facility] [place] [facility] [address] [id number] [place] [address]- 8598 August, [facility] [place] [facility] [address] [id number] [place] [address]- 0619 August, [facility] [place] [facility] [address] [id number] [place] [address]- 9274 August, [facility] [place] [facility] [address] [id number] [place] [address]- 9085 August, [facility] [place] [facility] [address] [id number] [place] [address]- 4908 August, [facility] [place] [facility] [address] [id number] [place] [address]- 0053 August, [facility] [place] [facility] [address] [id number] [place] [address]- 7970 August, [facility] [place] [facility] [address] [id number] [place] [address]- 6830 August, [facility] [place] [facility] [address] [id number] [place] [address]- 0921 Jul, [facility] [place] [facility] [address] [id number] [place] [address]- 0485 Jul, [facility] [place] [facility] [address] [id number] [place] [address]- 4635 Jul, [facility] [place] [facility] [address] [id number] [place] [address]- 7958 Jul, [facility] [place] [facility] [address] [id number] [place] [address]- 5838 Jul, [facility] [place] [facility] [address] [id number] [place] [address]- 4241 Jul, [facility] [place] [facility] [address] [id number] [place] [address]- 6969 Jul, [facility] [place] [facility] [address] [id number] [place] [address]- 1440 Jul, [facility] [place] [facility] [address] [id number] [place] [address]- 4073 Jul, [facility] [place] [facility] [address] [id number] [place] [address]- 6526 Jul, [facility] [place] [facility] [address] [id number] [place] [address]- 7600 Jul, [facility] [place] [facility] [address] [id number] [place] [address]- 0540 Jul, [facility] [place] [facility] [address] [id number] [place] [address]- 4097 Jul, [facility] [place] [facility] [address] [id number] [place] [address]- 6775 17 Jul, 2013 [facility] [place] [facility] [address] [id number] [place] [address]- 7099 17 Jul, 2013 [facility] [place] [facility] [address] [id number] [place] [address]- 6662 17 Jul, 2013 [facility] [place] [facility] [address] [id number] [place] [address]- 7313 17 Jul, 2013 [facility] [place] [facility] [address] [id number] [place] [address]- 0827 16 Jul, 2013 [facility] [place] [facility] [address] [id number] [place] [address]- 3525 16 Jul, 2013 [facility] [place] [facility] [address] [id number] [place] [address]- 6521 15 Jul, 2013 [facility] [place] [facility] [address] [id number] [place] [address]- 1502 15 Jul, 2013 [facility] [place] [facility] [address] [id number] [place] [address]- 5187 14 Jul, 2013 [facility] [place] [facility] [address] [id number] [place] [address]- 8235 14 Jul, 2013 [facility] [place] [facility] [address] [id number] [place] [address]- 9475 12 Jul, 2013 [facility] [place] [facility] [address] [id number] [place] [address]- 0907 12 Jul, 2013 [facility] [place] [facility] [address] [id number] [place] [address]- 7636 Jul, [facility] [place] [facility] [address] [id number] [place] [address]- 7585 Jul, [facility] [place] [facility] [address] [id number] [place] [address]- 1544 Jul, [facility] [place] [facility] [address] [id number] [place] [address]- 8827 Jul, [facility] [place] [facility] [address] [id number] [place] [address]- 8627 17 Jun, 2013 [facility] [place] [facility] [address] [id number] [place] [address]- 4429 17 Jun, 2013 [facility] [place] [facility] [address] [id number] [place] 4624 17 Jun, 2013 [facility] [place] [facility] [address] [id number] [place] [address]- 1932 17 Jun, 2013 [facility] [place] [facility] [address] [id number] [place] [address]- 4138 Jun, [facility] [place] [facility] [address] [id number] [place] [address]- 5167 13 Jun, 2013 [facility] [place] [facility] [address] [id number] [place] [address]- 4848 11 Jun, 2013 [facility] [place] [facility] [address] [id number] [place] [address]- 3060 11 Jun, 2013 [facility] [place] [facility] [address] [id number] [place] [address]- 3917 Jun, [facility] [place] [facility] [address] [id number] [place] [address]- 8982 Jun, [facility] [place] [facility] [address] [id number] [place] [address]- 4774 Jun, [facility] [place] [facility] [address] [id number] [place] [address]- 7969 Jun, [facility] [place] [facility] [address] [id number] [place] [address]- 6997 May, [facility] [place] [facility] [address] [id number] [place] [address]- 8536 May, [facility] [place] [facility] [address] [id number] [place] [address]- 9816 May, [facility] [place] [facility] [address] [id number] [place] [address]- 1703 07 May, 2013 [facility] [place] [facility] [address] [id number] [place] [address]- 4606 May, [facility] [place] [facility] [address] [id number] [place] [address] 2546 May, [facility] [place] [facility] [address] [id number] [place] [address]- 9496 May, [facility] [place] [facility] [address] [id number] [place] [address]- 8767 May, [facility] [place] [facility] [address] [id number] [place] [address]- 1936 May, [facility] [place] [facility] [address] [id number] [place] [address]- 6239 May, [facility] [place] [facility] [address] [id number] [place] [address]- 3815 Apr, [facility] [place] [facility] [address] [id number] [place] [address]- 6688 Apr, [facility] [place] [facility] [address] [id number] [place] [address]- 0904 Apr, [facility] [place] [facility] [address] [id number] [place] [address]- 5531 Apr, [facility] [place] [facility] [address] [id number] [place] [address]- 8948 Apr, [facility] [place] [facility] [address] [id number] [place] [address]- 3676 Apr, [facility] [place] [facility] [address] [id number] [place] [address]- 1796 Apr, [facility] [place] [facility] [address] [id number] [place] [address] 2546 Apr, [facility] [place] [facility] [address] [id number] [place] [address]- 8575 Apr, [facility] [place] [facility] [address] [id number] [place] [address] Apr, [facility] [place] [facility] [address] [id number] [place] [address]- 1183 Mar, [facility] [place] [facility] [address] [id number] [place] [address]25 Mar, [facility] [place] [facility] [address] [id number] [place] [address]- 4023 Mar, [facility] [place] [facility] [address] [id number] [place] [address]- 7285 Mar, [facility] [place] [facility] [address] [id number] [place] [address]- 6795 Mar, [facility] [place] [facility] [address] [id number] [place] [address]- 9547 Mar, [facility] [place] [facility] [address] [id number] [place] [address]- 4189 Feb, [facility] [place] [facility] [address] [id number] [place] [address]- 7463 Feb, [facility] [place] [facility] [address] [id number] [place] [address]- 1729 Feb, [facility] [place] [facility] [address] [id number], [place] [address]- 2553 30 Jan, 2013 [facility] [place] [facility] [address] [id number], [place] [address]- 2157 30 Jan, 2013 [facility] [place] [facility] [address] [id number] [place] [address]- 5281 Jan, [facility] [place] [facility] [address] [id number], [place] [address]- 4841 28 Jan, 2013 [facility] [place] [facility] [address] [id number], [place] [address]- 4183 15 Jan, 2013 [facility] [place] [facility] [address] [id number] [place] [address]- 6361 15 Jan, 2013 [facility] [place] [facility] [address] [id number] [place] [address]- 1706 11 Jan, 2013 [facility] [place] [facility] [address] [id number] [place] [address]- 3306 Jan, [facility] [place] [facility] [address] [id number] [place] [address]- 1899 04 Jan, 2013 [facility] [place] [facility] [address] [id number] [place] [address]- 6370 Jan, [facility] [place] [facility] [address] [id number] [place] [address]- 6771 30 Dec, 2012 [facility] [place] [facility] [address] [id number] [place] [address]- 0104 Dec, [facility] [place] [facility] [address] [id number] [place] [address]- 0841 Dec, 2012 [facility] [place] [facility] [address] [id number] [place] [address]- 8952 Dec, [facility] [place] [facility] [address] [id number] [place] [address]- 3696 05 Dec, 2012 [facility] [place] [facility] [address] [id number] [place] [address]- 7372 04 Dec, 2012 [facility] [place] [facility] [address] [id number] [place] [address]- 8329 Nov, [facility] [place] [facility] [address] [id number] [place] [address] 2542 Nov, [facility] [place] [facility] [address] [id number] [place] [address]- 0036 Nov, [facility] [place] [facility] [address] [id number] [place] [address]- 254 Nov, [facility] [place] [facility] [address] [id number] [place] [address]- 1936 Nov, [facility] [place] [facility] [address] [id number] [place] [address]- 9380 Nov, [facility] [address] [id number] [place] [address]- 0726 Nov, [facility] [place] [facility] [address] [id number] [place] [address]- 2636 Nov, [facility] [address] [id number] [place] [address]- 8042 Nov, [facility] [address] [id number] [place] [address]- 5555 Nov, [facility] [place] [facility] [address] [id number] [place] [address]- 2218 Nov, [facility] [address] [id number] [place] [address]- 6563 Nov, [facility] [address] [id number] [place] [address]- 6497 Oct, [facility] [address] [id number] [place] [address]- 6085 Oct, [facility] [place] [facility] [address] [id number] [place] [address]- 9018 Oct, [facility] [place] [facility] [address] [id number] [place] [address]- 6536 Sep, [facility] [place] [facility] [address] [id number] [place] [address]- 0930 Sep, [facility] [place] [facility] [address] [id number] [place] [address]- 2188 Sep, [facility] [place] [facility] [address] [id number] [place] [address]- 1263 August, [facility] [place] [facility] [address] [id number] [place] [address]- 2185 August, [facility] [place] [facility] [address] [id number] [place] [address]- 6252 August, [facility] [address] [id number] [place] [address]- 0205 August, [facility] [address] [id number] [place] [address]- 7925 August, [facility] [address] [id number] [place] [address]- 0265 August, [facility] [address] [id number] [place] [address]- 9870 Jul, [facility] [address] [id number] [place] [address]- 9673 Jul, [facility] [address] [id number] [place] [address]- 0248 Jul, [facility] [address] [id number] [place] [address]- 5297 Jul, [facility] [address] [id number] [place] [address]- 9118 Jul, [facility] [address] [id number] [place] [address]- 2332 Jul, [facility] [address] [id number] [place] [address]- 4453 Jun, [facility] [address] [id number] [place] [address]- 5247 Jun, [facility] [place] [facility] [address] [id number] [place] [address]- 2480 18 Jun, 2012 [facility] [place] [facility] [address] [id number] [place] [address]- 1657 14 Jun, 2012 [facility] [place] [facility] [address] [id number] [place] [address]- 7553 04 Jun, 2012 [facility] [place] [facility] [address] [id number] [place] [address]- 4392 May, [facility] [place] [facility] [address] [id number] [place] [address] 2546 12 May, 2012 [facility] [address] [id number] [place] [address]- 2486 May, [facility] [place] [facility] [address] [id number] [place] [address]- 2546 May, [facility] [place] [facility] [address] [id number] [place] [address]- 5576 Apr, [facility] [place] [facility] [address] [id number] [place] [address]- 1072 Apr, [facility] [place] [facility] [address] [id number] [place] [address]- 6593 Apr, [facility] [place] [facility] [address] [id number] [place] [address]- 8596 Mar, [facility] [place] [facility] [address] [id number] [place] [address]- 4493 Mar, [facility] [address] [id number] [place] [address]- 1942 Mar, [facility] [place] [facility] [address] [id number] [place] [address]- 8716 Mar, [facility] [place] [facility] [address] [id number] [place] [address]- 3631 Mar, [facility] [place] [facility] [address] [id number] [place] [address]- 6186 Mar, [facility] [place] [facility] [address] [id number] [place] [address]- 2546 Mar, [facility] [place] [facility] [address] [id number] [place] [address]- 2546 Mar, [facility] [place] [facility] [address] [id number] [place] [address]- 2546 Feb, [facility] [place] [facility] [address] [id number] [place] [address]- 9595 Feb, [facility] [place] [facility] [address] [id number] [place] [address]- 2318 Feb, [facility] [place] [facility] [address] [id number] [place] [address]- 2360 Feb, [facility] [place] [facility] [address] [id number] [place] [address] Feb, [facility] [place] [facility] [address] [id number] [place] [address] Feb, [facility] [place] [facility] [address] [id number] [place] [address] Feb, [facility] [place] [facility] [address] [id number] [place] [address] Feb, [facility] [place] [facility] [address] [id number] [place] [address] 94[address] Feb, [facility] [place] [facility] [address] [id number], [place] [address] Feb, [facility] [place] [facility] [address] [id number] [place] [address] Feb, [facility] [place] [facility] [address] [id number], [place] [address] Feb, [facility] [place] [facility] [address] [id number], [place] [address] Feb, [facility] [place] [facility] [address] [id number], [place] [address] Feb, [facility] [place] [facility] [address] [id number], [place] [address] Feb, [facility] [place] [facility] [address] [id number], [place] [address] Feb, [facility] [place] [facility] [address] [facility] [id number], [place] [address] Feb, [facility] [place] [facility] [address] [id number] [place] [address] 05 Feb, 2012 [facility] [place] [facility] [address] [id number] [place] [address] 23 Jan, 2011 [facility] [place] [facility] [address] [id number] [place] [address] 3370 22 Jan, 2012 [facility] [place] [facility] [address] [id number] [place] [address]341 22 Jan, 2012 [facility] [place] [facility] [address] [id number] [place] [address] 9769 20 Jan, 2012 [facility] [place] [facility] [address] [id number] [place] [address]- [address]3 20 Jan, 2012 [facility] [place] [facility] [address] [id number] [place] [address]- 6[address] 19 Jan, 2012 [facility] [place] [facility] [address] [id number] [place] [address] 18 Jan, 2012 [facility] [place] [facility] [address] [id number] [place] [address] 1651 18 Jan, 2012 [facility] [place] [facility] [address] [facility] [id number] [place] [address] 2[address] 15 Jan, 2012 [facility] [place] [facility] [address] [facility] [id number] [place] [address] 3854 15 Jan, 2012 [facility] [place] [facility] [address] [id number] [place] [address] 0143 11 Jan, 2012 [facility] [place] [facility] [address] [id number], [place] [address] 11 Jan, 2012 [facility] [place] [facility] [address] [id number] [place] [address]- 7058 10 Jan, 2012 [facility] [place] [facility] [address] [facility] [id number] [place] [address] 62[address] 09 Jan, 2012 [facility] [place] [facility] [address] [id number][place] [address] Jan, [facility] [place] [facility] [address] [id number] [place] [address] 8949 29 Dec, 2011 [facility] [place] [facility] [address] [id number] [place] [address]236 Dec, [facility] [place] [facility] [address] [id number] [place] [address] Dec, [facility] [place] [facility] [address] [id number] [place] [address] 8673 Dec, [facility] [place] [facility] [address] [id number] [place] [address] 9537 Nov, [facility] [place] [facility] [address] [id number] [place] [address] 7099 Nov, [facility] [place] [facility] [address] [id number] [place] [address] 0[address] Nov, [facility] [place] [facility] [address] [id number] [place] [address]- 4534 Nov, [facility] [place] [facility] [address] [id number] [place] [address] 4727 Nov, [facility] [place] [facility] [address] [id number] [place] [address]- 8693 Nov, [facility] [place] [facility] [address] [id number] [place] [address] 38[address] Nov, [facility] [place] [facility] [address] [id number] [place] [address] 9857 Nov, [facility] [place] [facility] [address] [id number] [place] [address] 8657 Nov, [facility] [place] [facility] [address] [id number] [place] [address] 65[address] Nov, [facility] [place] [facility] [address] [id number] [place] [address] 2690 Nov, [facility] [place] [facility] [address] [id number] [place] [address] 7998 Oct, [facility] [place] [facility] [address] [id number] [place] [address]- 2257 Oct, [facility] [place] [facility] [address] [id number] [place] [address]- 3466 Oct, [facility] [place] [facility] [address] [id number] [place] [address]- 5316 Oct, [facility] [place] [facility] [address] [id number] [place] [address]- 9052 Oct, [facility] [place] [facility] [address] [id number] [place] [address]- 1084 Oct, [facility] [place] [facility] [address] [id number] [place] [address]- 6911 Oct, [facility] [place] [facility] [address] [id number] [place] [address]- 1780 Oct, [facility] [place] [facility] [address] [id number] [place] [address]- 8719 Sep, [facility] [place] [facility] [address] [id number] [place] [address]- 7109 Sep, [facility] [place] [facility] [address] [id number] [place] [address]- 0875 Sep, [facility] [place] [facility] [address] [id number] [place] [address]- 8656 Sep, [facility] [place] [facility] [address] [id number] [place] [address]- 2123 Sep, [facility] [place] [facility] [address] [id number] [place] [address]- 5271 Sep, [facility] [place] [facility] [address] [id number] [place] [address]- 2958 Sep, [facility] [place] [facility] [address] [id number] [place] [address]- 7757 August, [facility] [place] [facility] [address] [id number] [place] [address]- 6424 30 Aug, 2011 [facility] [address] [id number] [place] [address]- [address] August, [facility] [address] [id number] [place] [address] 2546 August, [facility] [address] [id number] [place] [address]- 8286 August, [facility] [address] [id number] [place] [address]386 August, [facility] [address] [id number] [place] [address]- 9672 August, [facility] [address] [id number] [place] [address]- 4456 August, [facility] [address] [id number] [place] [address]- 3357 Jul, [facility] [address] [id number] [place] [address]- 7341 17 Jul, 2011 [facility] [address] [id number] [place] [address]- 3783 13 Jul, 2011 [facility] [address] [id number] [place] [address] Jul, [facility] [address] [id number] [place] [address] 05 Jul, 2011 [facility] [address] [id number] [place] [address] 28 Jun, 2011 [facility] [address] [id number] [place] [address] 2011 [facility] [address] [id number] [place] [address] 20 Jun, 2011 [facility] [address] [id number] [place] [address] Jun, [facility] [place] [facility] [address] [id number] [place] [address] Jun, [facility] [place] [facility] [address] [id number] [place] [address] Jun, [facility] [place] [facility] [address] [id number] [place] [address] Jun, [facility] [place] [facility] [address] [id number] [place] [address] Jun, [facility] [place] [facility] [address] [id number] [place] [address] Jun, [facility] [place] [facility] [address] [id number] [place] [address] 27 May, 2011 [facility] [place] [facility] [address] [id number] [place] [address] 1407 24 May, 2011 [facility] [place] [facility] [address] [id number] [place] [address] May, [facility] [place] [facility] [address] [id number] [place] [address] May, [facility] [place] [facility] [address] [id number] [place] [address] 2510 May, [facility] [place] [facility] [address] [id number] [place] [address] 1714 May, [facility] [place] [facility] [address] [id number] [place] [address]13 May, [facility] [place] [facility] [address] [id number] [place] [address] May, [facility] [place] [facility] [address] [id number] [place] [address] Apr, [facility] [place] [facility] [address] [id number] [place] [address] Apr, [facility] [place] [facility] [address] [id number] [place] [address] Apr, [facility] [address] [id number] [place] [address] Apr, [facility] [address] [id number] [place] [address] Apr, [facility] [address] [id number] [place] [address] Apr, [facility] [address] [id number] [place] [address] Mar, [facility] [address] [id number] [place] [address]70 Mar, [facility] [address] [id number] [place] [address]40 Mar, [facility] [address] [id number] [place] [address] Mar, [facility] [address] [id number] [place] [address] Mar, [facility] [address] [id number] [place] [address] Mar, [facility] [address] [id number] [place] [address] Mar, [facility] [address] [id number] [place] [address] Mar, [facility] [address] [id number] [place] [address]32 Mar, [facility] [address] [id number] [place] [address]10 Mar, [facility] [address] [id number] [place] [address] Mar, [facility] [address] [id number] [place] [address] 8478 Mar, [facility] [place] [facility] [address] [id number] [place] [address] Mar, [facility] [place] [facility] [address] [id number] [place] [address] Feb, [facility] [place] [facility] [address] [id number] [place] [address]27 Feb, [facility] [place] [facility] [address] [id number] [place] [address] Feb, [facility] [place] [facility] [address] [id number] [place] [address]76 Feb, [facility] [place] [facility] [address] [id number] [place] [address] 4695 Feb, [facility] [place] [facility] [address] [id number] [place] [address] 46[address] Feb, [facility] [place] [facility] [address] [id number] [place] [address] Feb, [facility] [place] [facility] [address] [id number] [place] [address] 9445 Jan, [facility] [place] [facility] [address] [id number], [place] [address] Jan, [facility] [place] [facility] [address] [id number], [place] [address] Jan, [facility] [place] [facility] [address] [id number], [place] [address] Nov, [facility] [place] [facility] [address] [id number] [place] [address]- 4099 Mar, [facility] [place] [facility] [address] [id number] [place] [address] 5924 Mar, [facility] [place] [facility] [address] [id number], [place] [address] Mar, [facility] [place] [facility] [address] [id number][place] [id number] [address] Mar, [facility] [id number] [address] Mar, [facility] [id number] [place] [address] Feb, [facility] [id number] [address] Feb, [facility] [id number] [place] [address] Feb, [facility] [id number] [place] [address] Feb, [facility] [id number] [place] [address]- [address] Feb, [facility] [id number] [place] [address] Feb, IMMUNIZATIONS No Known Immunizations SOCIAL HISTORY Never Assessed REASON FOR VISIT Rash on both arms and some on her chest. pt reports it itches. she noticed it last noc. pt used some body spray...which shes used before...however...this is the first time shes used this spray since her double mastectomy. [email or web address] PLAN OF CARE Activity Details Follow Up prn Reason: VITAL SIGNS Height 60 in 2017-02-11 Weight 209.7 lbs 2017-02-11 Temperature 98.8 degrees Fahrenheit 2017-02-11 Heart Rate 80 bpm 2017-02-11 Respiratory Rate 20 2017-02-11 BMI 40.95 kg/m2 2017-02-11 Blood pressure systolic 146 mmHg 2017-02-11 Blood pressure diastolic 82 mmHg 2017-02-11 MEDICATIONS Medication Instructions Dosage Frequency Start Date End Date Duration Status Ibuprofen 600 MG Orally every 6 hrs 1 tablet as needed for pain 6h Nov, 30 days Active Exemestane 25 MG Orally Once a day 1 tablet with a meal 24h Active Diltiazem HCl 120 MG Orally daily TAKE 1 TABLET BY MOUTH 2 TIMES A DAY 24h Active Silvadene 1 % Externally Once a day 1 application to affected area 24h Nov, Active Amitriptyline HCl 100 MG Orally Once at bedtime for sleep 1 tablet 90 Active Albuterol Sulfate (2.5 MG/3ML) 0.083% Inhalation every 4-6 hours as needed for cough or wheeze 3 ml Jan, Active Albuterol Sulfate 90 mcg/actuation 2 puffs by Inhalation route every 4-6 hours as needed PRN cough or wheezing Oct, Active Singulair 10 mg Orally Once a day 1 tablet 24h August, Active Omeprazole 20 mg Orally 2 times a day 1 capsule 12h Active VESIcare 5 mg Orally Once a day 1 tablet 24h August, Active Symbicort 160-4.5 MCG/ACT Inhalation Twice a day 2 puffs 12h 20 May, 2016 Active Cane 1 as directed Sep, Active Requip 4 MG Orally Once a day as directed 24h Feb, 30 days Active PredniSONE 20 MG Orally Once a day 2 tablet 24h Jan, Jan, 5 days Active Oxygen 2 L/NC subcutaneously at night only as directed Jul, Active RESULTS No Results PROCEDURES Procedure Date Ordered Result Body Site [facility] VISIT ESTABLISHED PATIENT Feb 11, 2017 INSTRUCTIONS MEDICATIONS ADMINISTERED No Known [...]
--- OUTSIDE RECORDS SUMMARY | 2017-12-22 04:45 | XMS REPORT ---
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 [facility] [place] [facility] [address] [id number] [place] [address]- 8918 17 Jun, 2014 [facility] [place] [facility] [address] [id number] [place] [address]- 6336 17 Jun, 2014 [facility] [place] [facility] [address] [id number] [place] [address]- 0482 17 Jun, 2014 [facility] [place] [facility] [address] [id number] [place] [address]- 4869 13 Jun, 2014 [facility] [place] [facility] [address] [id number] [place] [address]- 9533 13 Jun, 2014 [facility] [place] [facility] [address] [id number] [place] [address]- 3337 12 Jun, 2014 [facility] [place] [facility] [address] [id number] [place] [address]- 2413 12 Jun, 2014 [facility] [place] [facility] [address] [id number] [place] [address]- 5924 10 Jun, 2014 [facility] [place] [facility] [address] [id number] [place] [address]- 2513 10 Jun, 2014 [facility] [place] [facility] [address] [id number] [place] [address]- 6791 10 Jun, 2014 [facility] [place] [facility] [address] [id number] [place] [address]- 5090 10 Jun, 2014 [facility] [place] [facility] [address] [id number] [place] [address]- 0148 Jun, 2014 [facility] [place] [facility] [address] [id number] [place] [address]- 3498 Jun, 2014 [facility] [place] [facility] [address] [facility] [id number] [place] [address]- 5085 Jun, 2014 [facility] [place] [facility] [address] [facility] [id number] [place] [address]- 7108 Jun, 2014 [facility] [place] [facility] [address] [facility] [id number] [place] [address]- 1465 Jun, [facility] [place] [facility] [address] [facility] [id number] [place] [address]- 1133 Jun, [facility] [place] [facility] [address] [facility] [id number] [place] [address]- 8653 May, 2014 [facility] [place] [facility] [address] [facility] [id number] [place] [address]- 5181 May, 2014 [facility] [place] [facility] [address] [facility] [id number] [place] [address]- 5986 May, 2014 [facility] [place] [facility] [id number] [place] [address]- 3254 May, 2014 [facility] [place] [facility] [id number] [place] [address]- 9793 May, 2014 [facility] [place] [facility] [address] [facility] [id number] [place] [address]- 1934 May, 2014 [facility] [place] [facility] [address] [facility] [id number] [place] [address]- 1469 May, 2014 [facility] [place] [facility] [address] [facility] [id number] [place] [address]- 0288 May, 2014 [facility] [place] [facility] [address] [facility] [id number] [address]- 8868 May, 2014 [facility] [place] [facility] [address] [address]- 5726 May, 2014 [facility] [place] [facility] [address] [id number] [place] [address]- 4916 May, [facility] [place] [facility] [address] [id number] [place] [address]- 8406 May, 2014 [facility] [place] [facility] [address] [id number] [place] [address]- 0656 May, 2014 [facility] [place] [facility] [address] [id number] [place] [address]- 2453 May, 2014 [facility] [place] [facility] [address] [id number] [place] [address]- 5394 May, [facility] [place] [facility] [address] [id number] [place] [address]- 4236 May, [facility] [place] [facility] [address] [id number] [place] [address]- 9140 Apr, [facility] [place] [facility] [address] [id number] [place] [address]- 8926 Apr, [facility] [place] [facility] [address] [id number] [place] [address]- 1826 Apr, [facility] [place] [facility] [address] [facility] [id number] [place] [address]- 5529 Apr, [facility] [place] [facility] [address] [id number] [place] [address]- 9067 Apr, [facility] [place] [facility] [address] [id number] [place] [address]- 3994 Apr, [facility] [place] [facility] [address] [id number] [place] [address]- 5012 Apr, [facility] [place] [facility] [address] [id number] [place] [address]- 7595 Apr, [facility] [place] [facility] [address] [id number], [place] [address]- 1305 Apr, [facility] [place] [facility] [address] [id number] [place] [address]- 3557 Apr, [facility] [place] [facility] [address] [id number] [place] [address]- 0197 Apr, [facility] [place] [facility] [address] [id number] [place] [address]- 4884 Apr, [facility] [place] [facility] [address] [id number] [place] [address]- 3945 Apr, [facility] [place] [facility] [address] [id number] [place] [address]- 2987 Apr, [facility] [place] [facility] [address] [id number] [place] [address]- 2805 Apr, [facility] [place] [facility] [address] [id number] [place] [address]- 8350 Mar, [facility] [place] [facility] [address] [id number] [place] [address]- 9832 Mar, [facility] [place] [facility] [address] [id number] [place] [address]- 3035 Mar, [facility] [place] [facility] [address] [id number] [place] [address]- 1756 Mar, [facility] [place] [facility] [address] [id number] [place] [address]- 7522 Mar, [facility] [place] [facility] [address] [id number] [place] [address]- 2882 Mar, [facility] [place] [facility] [address] [id number] [place] [address]- 5892 15 Mar, 2014 [facility] [place] [facility] [address] [id number] [place] [address]- 6243 Mar, [facility] [place] [facility] [address] [id number] [place] [address]- 7627 15 Mar, 2014 [facility] [place] [facility] [address] [id number] [place] [address]- 2273 Mar, [facility] [place] [facility] [address] [id number] [place] [address]- 1878 Mar, [facility] [place] [facility] [address] [id number] [place] [address]- 1507 Mar, [facility] [place] [facility] [address] [id number] [place] [address]- 4697 Mar, [facility] [place] [facility] [address] [id number] [place] [address]- 5950 Mar, [facility] [place] [facility] [address] [id number] [place] [address]- 0287 Mar, [facility] [place] [facility] [address] [id number] [place] [address]- 1824 Mar, [facility] [place] [facility] [address] [id number] [place] [address]- 1137 Mar, [facility] [place] [facility] [address] [id number] [place] [address]- 1979 Mar, [facility] [place] [facility] [address] [id number] [place] [address]- 5067 Feb, [facility] [place] [facility] [address] [id number] [place] [address]- 3189 Feb, [facility] [place] [facility] [address] [id number] [place] [address]- 8564 Feb, [facility] [place] [facility] [address] [id number], [place] [address]- 9492 Feb, [facility] [place] [facility] [address] [id number] [place] [address]- 7185 Feb, [facility] [place] [facility] [address] [id number] [place] [address]- 7120 Feb, [facility] [place] [facility] [address] [id number] [place] [address]- 1455 Feb, [facility] [place] [facility] [address] [id number] [place] [address]- 7561 Feb, [facility] [place] [facility] [address] [id number] [place] [address]- 4353 Jan, [facility] [place] [facility] [address] [id number] [place] [address]- 0595 Jan, [facility] [place] [facility] [address] [id number] [place] [address]- 8804 Jan, [facility] [place] [facility] [address] [id number] [place] [address]- 1893 Jan, [facility] [place] [facility] [address] [id number] [place] [address]- 6315 Jan, [facility] [place] [facility] [address] [id number] [place] [address]- 8097 Jan, [facility] [place] [facility] [address] [id number] [place] [address]- 9408 Jan, [facility] [place] [facility] [address] [id number] [place] [address]- 3904 Jan, [facility] [place] [facility] [address] [id number] [place] [address]- 2325 Jan, [facility] [place] [facility] [address] [id number] [place] [address]- 5615 Jan, [facility] [place] [facility] [address] [id number] [place] [address]- 1348 Jan, [facility] [place] [facility] [address] [id number] [place] [address]- 9419 Jan, [facility] [place] [facility] [address] [id number] [place] [address]- 7087 Jan, [facility] [place] [facility] [address] [id number] [place] [address]- 5724 Jan, [facility] [place] [facility] [address] [id number] [place] [address]- 3469 16 Jan, 2014 [facility] [place] [facility] [address] [id number] [place] [address]- 6554 16 Jan, 2014 [facility] [place] [facility] [address] [id number] [place] [address]- 2776 13 Jan, 2014 [facility] [place] [facility] [address] [id number] [place] [address]- 8769 13 Jan, 2014 [facility] [place] [facility] [address] [id number] [place] [address]- 8626 29 Dec, 2013 [facility] [place] [facility] [address] [id number] [place] [address] 29 Dec, 2013 [facility] [place] [facility] [address] [id number] [place] [address] 26 Dec, 2013 [facility] [place] [facility] [address] [id number] [place] [address] 26 Dec, 2013 [facility] [place] [facility] [address] [id number] [place] [address] 26 Dec, 2013 [facility] [place] [facility] [address] [id number] [place] [address] 26 Dec, 2013 [facility] [place] [facility] [address] [id number] [place] [address] 23 Dec, 2013 [facility] [place] [facility] [address] [id number], [place] [address] 23 Dec, 2013 [facility] [place] [facility] [address] [id number] [address] 22 Dec, 2013 [facility] [place] [facility] [address] [id number] [place] [address] 2546 22 Dec, 2013 [facility] [place] [facility] [address] [id number] [place] [address] 16 Dec, 2013 [facility] [place] [facility] [address] [id number] [address] 16 Dec, 2013 [facility] [place] [facility] [address] [id number], [place] [address] 47[address] 15 Dec, 2013 [facility] [place] [facility] [address] [id number] [place] [address] 15 Dec, 2013 [facility] [place] [facility] [address] [id number] [place] [address] Dec, [facility] [place] [facility] [address] [id number] [place] [address] 2073 Dec, [facility] [place] [facility] [address] [id number] [place] [address] Dec, [facility] [place] [facility] [address] [id number] [place] [address] Nov, [facility] [place] [facility] [address] [id number] [place] [address] Nov, [facility] [place] [facility] [address] [id number] [place] [address] Nov, [facility] [place] [facility] [address] [id number] [place] [address] 8[address] Nov, [facility] [place] [facility] [address] [id number] [place] [address]- 0869 Nov, [facility] [place] [facility] [address] [id number] [place] [address]- 49[address] Nov, [facility] [place] [facility] [address] [id number] [place] [address] 62[address] Nov, [facility] [place] [facility] [address] [id number] [place] [address]- [address]21 Nov, [facility] [place] [facility] [address] [id number] [place] [address]- 1463 Nov, [facility] [place] [facility] [address] [id number] [place] [address]- [address]855 Nov, [facility] [place] [facility] [address] [id number] [place] [address]- 0960 Nov, [facility] [place] [facility] [address] [id number] [place] [address] Nov, [facility] [place] [facility] [address] [id number] [place] [address] 7693 Nov, [facility] [place] [facility] [address] [id number] [place] [address] 9476 Nov, [facility] [place] [facility] [address] [id number] [place] [address]- 94[address] Nov, [facility] [place] [facility] [address] [id number] [place] [address]- 9091 Nov, [facility] [place] [facility] [address] [id number] [place] [address] Nov, [facility] [place] [facility] [address] [id number] [place] [address] 5144 Nov, [facility] [place] [facility] [address] [id number] [place] [address] Nov, [facility] [place] [facility] [address] [id number] [place] [address]30 Nov, [facility] [place] [facility] [address] [id number] [place] [address]- 2867 Nov, [facility] [place] [facility] [address] [id number] [place] [address] 3224 Oct, [facility] [place] [facility] [address] [id number] [place] [address]- 3464 Oct, [facility] [place] [facility] [address] [id number] [place] [address] Oct, [facility] [place] [facility] [address] [id number] [place] [address] 4638 Oct, [facility] [place] [facility] [address] [id number] [place] [address]- 9230 Oct, [facility] [place] [facility] [address] [id number] [place] [address]- 3065 Oct, [facility] [place] [facility] [address] [id number] [place] [address]- [address]37 Oct, [facility] [place] [facility] [address] [id number] [place] [address]- [address]387 Oct, [facility] [place] [facility] [address] [id number] [place] [address]- [address]706 Oct, [facility] [place] [facility] [address] [id number] [place] [address]- 7837 Oct, [facility] [place] [facility] [address] [id number] [place] [address]- 67[address] Oct, [facility] [place] [facility] [address] [id number] [place] [address]004 Oct, [facility] [place] [facility] [address] [id number] [place] [address]- 9651 Oct, [facility] [place] [facility] [address] [id number] [place] [address] Oct, [facility] [place] [facility] [address] [id number] [place] [address] Oct, [facility] [place] [facility] [address] [id number] [place] [address] Sep, [facility] [place] [facility] [address] [id number] [place] [address] 6[address] Sep, [facility] [place] [facility] [address] [id number] [place] [address] Sep, [facility] [place] [facility] [address] [id number] [place] [address]- 6264 Sep, [facility] [place] [facility] [address] [id number] [place] [address]- 0797 Sep, [facility] [place] [facility] [address] [id number] [place] [address]- 6346 Sep, [facility] [place] [facility] [address] [id number] [place] [address]- 25[address] 18 Sep, 2013 [facility] [place] [facility] [address] [id number] [place] [address]- [address] 18 Sep, 2013 [facility] [place] [facility] [address] [id number] [place] [address] 3[address] 17 Sep, 2013 [facility] [place] [facility] [address] [id number] [place] [address]- 7718 16 Sep, 2013 [facility] [place] [facility] [address] [id number] [place] [address]- 7374 16 Sep, 2013 [facility] [place] [facility] [address] [id number] [place] [address]- 9248 Sep, [facility] [place] [facility] [address] [id number] [place] [address]- 9287 16 Sep, 2013 [facility] [place] [facility] [address] [id number] [place] [address]- 6791 Sep, [facility] [place] [facility] [address] [id number] [place] [address]- 5548 Sep, [facility] [place] [facility] [address] [id number] [place] [address]- 8428 Sep, [facility] [place] [facility] [address] [id number] [place] [address]- 6732 09 Sep, 2013 [facility] [place] [facility] [address] [id number] [place] [address]- 9603 04 Sep, 2013 [facility] [place] [facility] [address] [id number] [place] [address]- 6933 03 Sep, 2013 [facility] [place] [facility] [address] [id number] [place] [address]- 7935 Sep, [facility] [place] [facility] [address] [id number] [place] [address]- 9567 Sep, [facility] [place] [facility] [address] [id number] [place] [address]- 8936 Sep, [facility] [place] [facility] [address] [id number] [place] [address]- 2293 August, [facility] [place] [facility] [address] [id number] [place] [address]- 3782 August, [facility] [place] [facility] [address] [id number] [place] [address] 7560 August, [facility] [place] [facility] [address] [id number] [place] [address]- 3254 August, [facility] [place] [facility] [address] [id number] [place] [address]- 4917 August, [facility] [place] [facility] [address] [id number] [place] [address]- 2252 August, [facility] [place] [facility] [address] [id number] [place] [address]- 8488 August, [facility] [place] [facility] [address] [id number] [place] [address]- 4864 August, [facility] [place] [facility] [address] [id number] [place] [address]- 5619 August, [facility] [place] [facility] [address] [id number] [place] [address]- 9562 August, [facility] [place] [facility] [address] [id number] [place] [address]- 4749 August, [facility] [place] [facility] [address] [id number] [place] [address]- 2411 August, [facility] [place] [facility] [address] [id number] [place] [address] August, [facility] [place] [facility] [address] [id number] [place] [address]- 164[address] August, [facility] [place] [facility] [address] [id number] [place] [address]- 6121 August, [facility] [place] [facility] [address] [id number] [place] [address]- 6212 August, [facility] [place] [facility] [address] [id number] [place] [address]- 1029 August, [facility] [place] [facility] [address] [id number] [place] [address]- 8611 August, [facility] [place] [facility] [address] [id number] [place] [address]- 5409 Jul, [facility] [place] [facility] [address] [id number] [place] [address]- 0814 Jul, [facility] [place] [facility] [address] [id number] [place] [address]- 2960 Jul, [facility] [place] [facility] [address] [id number] [place] [address]- 4036 Jul, [facility] [place] [facility] [address] [id number] [place] [address]- 9659 Jul, [facility] [place] [facility] [address] [id number] [place] [address]- 8866 Jul, [facility] [place] [facility] [address] [id number] [place] [address]- 1065 Jul, [facility] [place] [facility] [address] [id number] [place] [address]- 4409 Jul, [facility] [place] [facility] [address] [id number] [place] [address]- 2636 Jul, [facility] [place] [facility] [address] [id number] [place] [address]- 6462 Jul, [facility] [place] [facility] [address] [id number] [place] [address]- 0201 Jul, [facility] [place] [facility] [address] [id number] [place] [address]- 5587 Jul, [facility] [place] [facility] [address] [id number] [place] [address]- 9876 Jul, [facility] [place] [facility] [address] [id number] [place] [address]- 1699 17 Jul, 2013 [facility] [address] [id number] [place] [address]- 3292 17 Jul, 2013 [facility] [address] [id number] [place] [address]- 0191 17 Jul, 2013 [facility] [address] [id number] [place] [address]- 4387 17 Jul, 2013 [facility] [address] [id number] [place] [address]- 7910 16 Jul, 2013 [facility] [address] [id number] [place] [address]- 6079 16 Jul, 2013 [facility] [address] [id number] [place] [address]- 8732 15 Jul, 2013 [facility] [address] [id number] [place] [address]- 6507 15 Jul, 2013 [facility] [address] [id number] [place] [address]- 8131 14 Jul, 2013 [facility] [address] [id number] [place] [address]- 5498 14 Jul, 2013 [facility] [address] [id number] [place] [address]- 5397 12 Jul, 2013 [facility] [place] [facility] [address] [id number] [place] [address]- 6388 12 Jul, 2013 [facility] [address] [id number] [place] [address]- 0024 Jul, [facility] [place] [facility] [address] [id number] [place] [address]- 3217 Jul, [facility] [place] [facility] [address] [id number] [place] [address]- 8400 Jul, [facility] [place] [facility] [address] [id number] [place] [address]- 5716 Jul, [facility] [place] [facility] [address] [id number] [place] [address]- 8950 17 Jun, 2013 [facility] [place] [facility] [address] [id number] [place] [address]- 1326 17 Jun, 2013 [facility] [place] [facility] [address] [id number] [place] [address]- 4356 17 Jun, 2013 [facility] [place] [facility] [address] [id number] [place] [address]- 2386 17 Jun, 2013 [facility] [place] [facility] [address] [id number] [place] [address]- 7894 Jun, [facility] [place] [facility] [address] [id number] [place] [address]- 5806 Jun, [facility] [place] [facility] [address] [id number] [place] [address]- 7528 Jun, [facility] [place] [facility] [address] [id number] [place] [address]- 9358 Jun, [facility] [place] [facility] [address] [id number] [place] [address]- 2841 Jun, [facility] [place] [facility] [address] [id number] [place] [address]- 6688 Jun, [facility] [place] [facility] [address] [id number] [place] [address]- 6816 Jun, [facility] [place] [facility] [address] [id number] [place] [address]- 2356 Jun, [facility] [place] [facility] [address] [id number] [place] [address]- 4876 May, [facility] [place] [facility] [address] [id number] [place] [address]- 3186 May, [facility] [place] [facility] [address] [id number] [place] [address]- 8736 May, [facility] [place] [facility] [address] [id number] [place] [address]- 0225 07 May, 2013 [facility] [place] [facility] [address] [id number] [place] [address]- 1896 May, [facility] [place] [facility] [address] [id number] [place] [address]- 6506 May, [facility] [place] [facility] [address] [id number] [place] [address]- 1426 May, [facility] [place] [facility] [address] [id number] [place] [address]- 4666 May, [facility] [place] [facility] [address] [id number] [place] [address]- 2006 May, [facility] [place] [facility] [address] [id number] [place] [address]- 3806 May, [facility] [place] [facility] [address] [id number] [place] [address]- 6096 Apr, [facility] [place] [facility] [address] [id number] [place] [address]- 9550 Apr, [facility] [place] [facility] [address] [id number] [place] [address]- 0069 Apr, [facility] [place] [facility] [address] [id number] [place] [address]- 1007 Apr, [facility] [place] [facility] [address] [id number] [place] [address]- 9625 Apr, [facility] [place] [facility] [address] [id number] [place] [address]- 8734 Apr, [facility] [place] [facility] [address] [id number] [place] [address]- 7586 Apr, [facility] [place] [facility] [address] [id number] [place] [address]- 7726 Apr, [facility] [place] [facility] [address] [id number] [place] [address]- 5860 Apr, [facility] [place] [facility] [address] [id number] [place] [address] Apr, [facility] [place] [facility] [address] [id number] [place] [address]- 8511 Mar, [facility] [place] [facility] [address] [id number] [place]20 Mar, [facility] [place] [facility] [address] [id number] [place] [address]- 4307 Mar, [facility] [place] [facility] [address] [id number] [place] [address]- 2424 Mar, [facility] [place] [facility] [address] [id number] [place] [address]- 3421 Mar, [facility] [place] [facility] [address] [id number] [place] [address]- 2323 Mar, [facility] [place] [facility] [address] [id number] [place] [address]- 7388 Feb, [facility] [place] [facility] [address] [id number] [place] [address]- 7296 Feb, [facility] [place] [facility] [address] [id number] [place] [address]- 5540 Feb, [facility] [place] [facility] [address] [id number] [place] [address]- 6522 Jan, [facility] [place] [facility] [address] [id number] [address]- 5191 30 Jan, 2013 [facility] [place] [facility] [address] [id number] [place] [address]- 8422 Jan, [facility] [place] [facility] [address] [id number] [place] [address]- 0230 Jan, [facility] [place] [facility] [address] [id number] [place] [address]- 6393 15 Jan, 2013 [facility] [place] [facility] [address] [id number] [place] [address]- 9853 15 Jan, 2013 [facility] [place] [facility] [address] [id number] [place] [address]- 7512 11 Jan, 2013 [facility] [place] [facility] [address] [id number] [place] [address]- 3374 Jan, [facility] [place] [facility] [address] [id number] [place] [address]- 7207 04 Jan, 2013 [facility] [place] [facility] [address] [id number] [place] [address]- 0007 Jan, [facility] [place] [facility] [address] [id number] [place] [address]- 6014 30 Dec, 2012 [facility] [place] [facility] [address] [id number] [place] [address]- 7118 Dec, 2012 [facility] [place] [facility] [address] [id number] [place] [address]- 2213 Dec, 2012 [facility] [place] [facility] [address] [id number] [place] [address]- 0909 Dec, 2012 [facility] [place] [facility] [address] [id number] [place] [address]- 9776 05 Dec, 2012 [facility] [place] [facility] [address] [id number] [place] [address]- 6665 Dec, [facility] [place] [facility] [address] [id number] [place] [address]- 8213 Nov, [facility] [place] [facility] [address] [id number] [address]- 2548 Nov, [facility] [place] [facility] [address] [id number] [place] [address]- 5083 Nov, [facility] [place] [facility] [address] [id number] [place] [address]- 1043 Nov, [facility] [place] [facility] [address] [id number] [place] [address]- 8205 Nov, [facility] [place] [facility] [address] [id number] [place] [address]- 4080 Nov, [facility] [place] [facility] [address] [id number] [place] [address]- 3586 Nov, [facility] [place] [facility] [address] [id number] [place] [address] 2546 Nov, [facility] [place] [facility] [address] [id number] [place] [address]- 5066 Nov, [facility] [place] [facility] [address] [id number] [place] [address]- 5501 Nov, [facility] [place] [facility] [address] [id number] [place] [address]- 7926 Nov, [facility] [place] [facility] [address] [id number] [place] [address]- 7078 Nov, [facility] [place] [facility] [address] [id number] [place] [address]- 8346 Oct, [facility] [place] [facility] [address] [id number] [place] [address]- 5392 Oct, [facility] [place] [facility] [address] [id number] [place] [address]- 6213 Oct, [facility] [place] [facility] [address] [id number] [place] [address]- 5495 Sep, [facility] [place] [facility] [address] [id number] [place] [address]- 7454 Sep, [facility] [place] [facility] [address] [id number] [place] [address]- 3529 Sep, [facility] [place] [facility] [address] [id number] [place] [address]- 2780 August, [facility] [place] [facility] [address] [id number] [place] [address]141 August, [facility] [place] [facility] [address] [id number] [place] [address]- 4342 August, [facility] [address] [id number] [place] [address]- 5372 August, [facility] [address] [id number] [place] [address]- 2017 August, [facility] [address] [id number] [place] [address]- 4854 August, [facility] [address] [id number] [place] [address]- 1006 Jul, [facility] [address] [id number] [place] [address]- 4098 Jul, [facility] [address] [id number] [place] [address]- 1696 Jul, [facility] [address] [id number] [place] [address]- 5195 Jul, [facility] [address] [id number] [place] [address]- 8724 Jul, [facility] [address] [id number] [place] [address]- 0332 Jul, [facility] [address] [id number] [place] [address]- 8745 Jun, [facility] [address] [id number], [place] [address]- 4099 Jun, [facility] [place] [facility] [address] [id number], [place] [address]- 6949 18 Jun, 2012 [facility] [place] [facility] [address] [id number] [place] [address]- 9188 14 Jun, 2012 [facility] [place] [facility] [address] [id number], [place] [address]- 7362 04 Jun, 2012 [facility] [place] [facility] [address] [id number] [place] [address]- 8796 May, [facility] [place] [facility] [address] [id number] [place] [address]- 2536 12 May, 2012 [facility] [address] [id number] [place] [address]- 1376 May, [facility] [place] [facility] [address] [id number] [place] [address]- 2546 May, [facility] [address] [id number] [place] [address]- 7886 Apr, [facility] [address] [id number] [place] [address]- 5453 Apr, [facility] [address] [id number] [place] [address]- 3926 Apr, [facility] [address] [id number] [place] [address]- 4228 Mar, [facility] [address] [id number] [place] [address] 2546 Mar, [facility] [address] [id number] [place] [address] 2541 Mar, [facility] [address] [id number] [place] [address]- 1506 Mar, [facility] [address] [id number] [place] [address]- 1227 Mar, [facility] [address] [id number] [place] [address]- 2546 Mar, [facility] [address] [id number] [place] [address]- 2546 Mar, [facility] [place] [facility] [address] [id number] [place] [address]- 2546 Mar, [facility] [address] [id number] [place] [address]- 2546 Feb, [facility] [address] [id number] [id number] [address] Feb, [facility] [place] [facility] [address] [id number] [place] [address]- 9953 Feb, [facility] [place] [facility] [address] [id number] [place] [address]- 2133 Feb, [facility] [place] [facility] [address] [id number] [place] [address]- 1395 Feb, [facility] [place] [facility] [address] [id number] [place] [address]- 7187 Feb, [facility] [place] [facility] [address] [id number] [place] [address] Feb, [facility] [place] [facility] [address] [id number] [place] [address] Feb, [facility] [place] [facility] [address] [id number] [place] [address] Feb, [facility] [place] [facility] [address] [id number] [place] [address] Feb, [facility] [place] [facility] [address] [id number] [place] [address] Feb, [facility] [place] [facility] [address] [id number] [place] [address] Feb, [facility] [place] [facility] [address] [id number], [place] [address] Feb, [facility] [place] [facility] [address] [id number], [place] [address] Feb, [facility] [place] [facility] [address] [id number] [place] [address] Feb, [facility] [place] [facility] [address] [id number] [place] [address] Feb, [facility] [place] [facility] [address] [id number] [place] [address] 8546 Feb, [facility] [place] [facility] [address] [id number], [place] [address] 05 Feb, 2012 [facility] [place] [facility] [address] [id number] [place] [address] 23 Jan, 2011 [facility] [place] [facility] [address] [id number] [place] [address] 6981 22 Jan, 2011 [facility] [place] [facility] [address] [id number] [place] [address]369 22 Jan, 2012 [facility] [place] [facility] [address] [id number] [place] [address]370 20 Jan, 2012 [facility] [place] [facility] [address] [id number] [place] [address], [place] [address]12 20 Jan, 2012 [facility] [place] [facility] [address] [id number] [place] [address]- [address]46 19 Jan, 2012 [facility] [place] [facility] [address] [id number] [place] [address] 18 Jan, 2012 [facility] [place] [facility] [address] [id number] [place] [address]118 18 Jan, 2012 [facility] [place] [facility] [address] [id number] [place] [address] 3314 15 Jan, 2012 [facility] [place] [facility] [address] [facility] [id number], [place] [address] 15 Jan, 2012 [facility] [place] [facility] [address] [id number] [place] [address] 49[address] 11 Jan, 2012 [facility] [place] [facility] [address] [id number], [place] [address] 11 Jan, 2012 [facility] [place] [facility] [address] [id number], [place] [address]67 10 Jan, 2011 [facility] [place] [facility] [address] [facility] [id number], [place] [address]- [address]247 09 Jan, 2012 [facility] [place] [facility] [address] [facility] [id number], [place] [address] 02 Jan, 2012 [facility] [place] [facility] [address] [id number] [place] [address] 2418 29 Dec, 2011 [facility] [place] [facility] [address] [id number] [place] [address] 2826 28 Dec, 2011 [facility] [place] [facility] [address] [id number] [place] [address] 2546 27 Dec, 2011 [facility] [place] [facility] [address] [id number] [place] [address] 2546 26 Dec, 2011 [facility] [place] [facility] [address] [id number] [place] [address] 2540 24 Nov, 2011 [facility] [place] [facility] [address] [id number] [place] [address] 4737 Nov, [facility] [place] [facility] [address] [id number] [place] [address] 3667 Nov, [facility] [place] [facility] [address] [id number] [place] [address] 8441 Nov, [facility] [place] [facility] [address] [id number] [place] [address] 5493 Nov, [facility] [place] [facility] [address] [id number] [place] [address] 2462 Nov, [facility] [place] [facility] [address] [id number] [place] [address] 9398 Nov, [facility] [place] [facility] [address] [id number] [place] [address] 2541 Nov, [facility] [place] [facility] [address] [id number] [place] [address] 2540 Nov, [facility] [place] [facility] [address] [id number] [place] [address] 2546 Nov, [facility] [place] [facility] [address] [id number] [place] [address]42 Nov, [facility] [place] [facility] [address] [id number] [place] [address]231 Oct, [facility] [place] [facility] [address] [id number] [place] [address] 4628 Oct, [facility] [place] [facility] [address] [id number] [place] [address]- 0186 Oct, [facility] [place] [facility] [address] [id number] [place] [address] 6206 Oct, [facility] [place] [facility] [address] [id number] [place] [address] 6329 Oct, [facility] [place] [facility] [address] [id number] [place] [address] 1943 Oct, [facility] [place] [facility] [address] [id number] [place] [address]- 3086 Oct, [facility] [place] [facility] [address] [id number] [place] [address]- 9034 Oct, [facility] [place] [facility] [address] [id number] [place] [address]- 7735 Sep, [facility] [place] [facility] [address] [id number] [place] [address] Sep, [facility] [place] [facility] [address] [id number] [place] [address]- 6625 Sep, [facility] [place] [facility] [address] [id number] [place] [address] 0293 Sep, [facility] [place] [facility] [address] [id number] [place] [address]- 2805 Sep, [facility] [place] [facility] [address] [id number] [place] [address]- 9[address] Sep, [facility] [place] [facility] [address] [id number] [place] [address]- 4114 Sep, [facility] [place] [facility] [address] [id number] [place] [address]- 1421 August, [facility] [place] [facility] [address] [id number] [place] [address]- [address]855 30 Aug, 2011 [facility] [address] [id number] [place] [address]- [address]284 August, [facility] [address] [id number] [place] [address]- 9796 August, [facility] [address] [id number] [place] [address]- 8636 August, [facility] [address] [id number] [place] [address]- 5681 August, [facility] [address] [id number] [place] [address]- [address]396 August, [facility] [address] [id number] [place] [address]- [address]676 August, [facility] [address] [id number] [place] [address]- 2469 28 Jul, 2011 [facility] [address] [id number] [place] [address] 17 Jul, 2011 [facility] [address] [id number] [place] [address] 13 Jul, 2011 [facility] [address] [id number] [place] [address] Jul, [facility] [address] [id number] [place] [address] 05 Jul, 2011 [facility] [address] [id number] [place] [address] 28 Jun, 2011 [facility] [place] [facility] [address] [id number] [place] [address] 2011 [facility] [place] [facility] [address] [id number] [place] [address] 20 Jun, 2011 [facility] [address] [id number] [place] [address] Jun, [facility] [place] [facility] [address] [id number] [place] [address] Jun, [facility] [place] [facility] [address] [id number] [place] [address] Jun, [facility] [place] [facility] [address] [id number] [place] [address] Jun, [facility] [place] [facility] [address] [id number] [place] [address] Jun, [facility] [place] [facility] [address] [id number] [place] [address] Jun, [facility] [place] [facility] [address] [id number] [place] [address] May, [facility] [place] [facility] [address] [id number] [place] [address] 24 May, 2011 [facility] [place] [facility] [address] [id number] [place] [address] May, [facility] [place] [facility] [address] [id number] [place] [address] May, [facility] [place] [facility] [address] [id number] [place] [address] May, [facility] [place] [facility] [address] [id number] [place] [address] May, [facility] [place] [facility] [address] [id number] [place] [address] May, [facility] [place] [facility] [address] [id number] [place] [address] May, [facility] [place] [facility] [address] [id number] [place] [address] Apr, [facility] [place] [facility] [address] [id number] [place] [address] Apr, [facility] [place] [facility] [address] [id number] [place] [address] Apr, [facility] [address] [id number] [place] [address] Apr, [facility] [address] [id number] [place] [address] Apr, [facility] [address] [id number] [place] [address] Apr, [facility] [address] [id number] [place] [address] Mar, [facility] [address] [id number] [place] [address] Mar, [facility] [address] [id number] [place] [address] Mar, [facility] [address] [id number] [place] [address] Mar, [facility] [address] [id number] [place] [address] 15 Mar, [address] [facility] [address] [address] [id number] [place] [address] Mar, [facility] [address] [id number] [place] [address] Mar, [facility] [address] [id number] [place] [address] Mar, [facility] [address] [id number] [place] [address] Mar, [facility] [place] [facility] [address] [id number] [place] [address] 06 Mar, 2011 [facility] [place] [facility] [address] [id number] [place] [address] 05 Mar, 2011 [facility] [address] [id number] [place] [address] Mar, [facility] [place] [facility] [address] [id number] [place] [address] Mar, [facility] [place] [facility] [address] [id number] [place] [address] Feb, [facility] [place] [facility] [address] [id number] [place] [address] Feb, [facility] [place] [facility] [address] [id number] [place] [address] 365[address] Feb, [facility] [place] [facility] [address] [id number] [place] [address] Feb, [facility] [place] [facility] [address] [id number] [place] [address] Feb, [facility] [place] [facility] [address] [id number] [place] [address] Feb, [facility] [place] [facility] [address] [id number] [place] [address] 84[address] Feb, [facility] [place] [facility] [address] [id number] [place] [address] Jan, [facility] [place] [facility] [address] [id number] [place] [address] Jan, [facility] [place] [facility] [address] [id number] [place] [address]- [address] Jan, [facility] [place] [facility] [address] [id number] [place] [address] Nov, [facility] [place] [facility] [address] [id number] [place] [address] Mar, [facility] [place] [facility] [address] [id number] [place] [address] Mar, [facility] [place] [facility] [address] [id number] [place] [address] Mar, [facility] [place] [facility] [address] [id number] [address] Mar, [facility] [address] [id number] [address] Mar, [facility] [address] [id number] [address] Feb, [facility] [address] [id number] [address] Feb, [facility] [address] [id number] [address] Feb, [facility] [address] [id number] [address] Feb, [facility] [id number] Feb, [facility] [address] [id number] [address] [address] Feb, IMMUNIZATIONS No Known Immunizations SOCIAL HISTORY Never Assessed REASON FOR VISIT neck pain for 2 months. denies any injury. [email or web address] PLAN OF CARE Activity Details Follow Up as scheduled Reason: VITAL SIGNS Height 60 in 2017-02-13 Weight 209.6 lbs 2017-02-13 Temperature 98.1 degrees Fahrenheit 2017-02-13 Heart Rate 82 bpm 2017-02-13 Respiratory Rate 20 2017-02-13 BMI 40.93 kg/m2 2017-02-13 Blood pressure systolic 138 mmHg 2017-02-13 Blood pressure diastolic 86 mmHg 2017-02-13 MEDICATIONS Medication Instructions Dosage Frequency Start Date End Date Duration Status PredniSONE 20 MG Orally Once a day 2 tablet 24h Jan, Jan, 5 days Active Symbicort 160-4.5 MCG/ACT Inhalation Twice a day 2 puffs 12h May, Active Exemestane 25 MG Orally Once a day 1 tablet with a meal 24h Active Amitriptyline HCl 100 MG Orally Once at bedtime for sleep 1 tablet 90 Active Albuterol Sulfate (2.5 MG/3ML) 0.083% Inhalation every 4-6 hours as needed for cough or wheeze 3 ml Jan, Active Requip 4 MG Orally Once a day as directed 24h Feb, 30 days Active Ibuprofen 600 MG Orally every 6 hrs 1 tablet as needed for pain 6h Nov, 30 days Active Oxygen 2 L/NC subcutaneously at night only as directed Jul, Active Diltiazem HCl 120 MG Orally daily TAKE 1 TABLET BY MOUTH 2 TIMES A DAY 24h Active Albuterol Sulfate 90 mcg/actuation 2 puffs by Inhalation route every 4-6 hours as needed PRN cough or wheezing Oct, Active Silvadene 1 % Externally Once a day 1 application to affected area 24h Nov, Active VESIcare 5 mg Orally Once a day 1 tablet 24h August, Active Omeprazole 20 mg Orally 2 times a day 1 capsule 12h Active Singulair 10 mg Orally Once a day 1 tablet 24h August, Active Cane 1 as directed Sep, Active RESULTS No Results PROCEDURES Procedure Date Ordered Result Body Site [facility] VISIT ESTABLISHED PATIENT Feb 13, 2017 INSTRUCTIONS MEDICATIONS ADMINISTERED No Known Medications [...]
--- OUTSIDE RECORDS SUMMARY | 2017-12-22 04:49 | XMS REPORT ---
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 [address] [id number] [place] [address]- 6638 Jun, 2014 [facility] [place] [facility] [address] [facility] [id number] [place] [address]- 5520 Jun, 2014 [facility] [place] [facility] [address] [facility] [id number] [place] [address]- 5086 Jun, 2014 [facility] [place] [facility] [address] [id number] [place] [address]- 8487 Jun, [facility] [place] [facility] [address] [facility] [id number] [place] [address]- 0937 Jun, [facility] [place] [facility] [address] [facility] [id number] [place] [address]- 5357 May, 2014 [facility] [place] [facility] [address] [facility] [id number] [place] [address]- 4845 May, 2014 [facility] [place] [facility] [address] [id number] [place] [address]- 7278 May, 2014 [facility] [place] [facility] [address] [id number] [place] [address]- 3967 May, 2014 [facility] [place] [facility] [address] [facility] [id number] [place] [address]- 3709 May, 2014 [facility] [place] [facility] [address] [facility] [id number] [place] [address]- 4487 May, 2014 [facility] [place] [facility] [address] [facility] [id number] [place] [address]- 4259 May, 2014 [facility] [place] [facility] [address] [facility] [id number] [place] [address]- 5471 18 May, 2014 [facility] [place] [facility] [address] [place] [address]- 5279 May, 2014 [facility] [place] [facility] [address] [id number] [place] [address]- 4588 May, 2014 [facility] [place] [facility] [address] [id number] [place] [address]- 9276 May, 2014 [facility] [place] [facility] [address] [facility] [id number] [place] [address]- 2206 May, 2014 [facility] [place] [facility] [address] [id number] [place] [address]- 7131 May, 2014 [facility] [place] [facility] [address] [id number] [place] [address]- 8736 May, 2014 [facility] [place] [facility] [address] [facility] [id number] [place] [address]- 2346 May, [facility] [place] [facility] [address] [facility] [id number] [place] [address]- 1279 May, 2014 [facility] [place] [facility] [address] [facility] [id number] [place] [address]- 2279 Apr, [facility] [place] [facility] [address] [facility] [id number] [place] [address]- 2709 Apr, [facility] [place] [facility] [address] [facility] [id number] [place] [address]- 5888 Apr, [facility] [place] [facility] [address] [facility] [id number] [place] [address]- 8146 Apr, [facility] [place] [facility] [address] [facility] [id number] [address]- 6208 Apr, [facility] [place] [facility] [address] [id number] [place] [address]- 2160 Apr, [facility] [place] [facility] [address] [facility] [id number] [place] [address]- 2324 Apr, [facility] [place] [facility] [address] [facility] [id number] [address]- 7486 Apr, [facility] [place] [facility] [address] [id number] [place] [address]- 6244 Apr, [facility] [place] [facility] [address] [id number] [place] [address]- 4352 Apr, [facility] [place] [facility] [address] [id number] [place] [address]- 7333 Apr, [facility] [place] [facility] [address] [id number] [place] [address]- 8126 Apr, [facility] [place] [facility] [address] [id number] [place] [address]- 8180 Apr, [facility] [place] [facility] [address] [id number] [place] [address]- 5108 Apr, [facility] [place] [facility] [address] [id number] [place] [address]- 5639 Apr, [facility] [place] [facility] [address] [id number] [place] [address]- 4099 Mar, [facility] [place] [facility] [address] [id number] [place] [address]- 7100 Mar, [facility] [place] [facility] [address] [id number] [place] [address]- 5004 Mar, [facility] [place] [facility] [address] [id number] [place] [address]- 7497 Mar, [facility] [place] [facility] [address] [id number] [place] [address]- 2442 Mar, [facility] [place] [facility] [address] [id number] [place] [address]- 7236 Mar, [facility] [place] [facility] [address] [id number] [place] [address]- 3729 Mar, [facility] [place] [facility] [address] [id number] [place] [address]- 2586 15 Mar, 2014 [facility] [place] [facility] [address] [id number] [place] [address]- 0985 15 Mar, 2014 [facility] [place] [facility] [address] [id number] [place] [address]- 6515 15 Mar, 2014 [facility] [place] [facility] [address] [id number] [place] [address]- 6542 Mar, [facility] [place] [facility] [address] [id number] [place] [address]- 4543 Mar, [facility] [place] [facility] [address] [id number] [place] [address]- 0903 Mar, [facility] [place] [facility] [address] [id number] [place] [address]- 0442 Mar, [facility] [place] [facility] [address] [id number] [place] [address]- 8801 Mar, [facility] [place] [facility] [address] [id number] [place] [address]- 4740 Mar, [facility] [place] [facility] [address] [id number] [place] [address]- 1452 Mar, [facility] [place] [facility] [address] [id number] [place] [address]- 4185 Mar, [facility] [place] [facility] [address] [id number] [place] [address]- 8967 Feb, [facility] [place] [facility] [address] [id number] [place] [address]- 9410 Feb, [facility] [place] [facility] [address] [id number] [address]- 6914 Feb, [facility] [place] [facility] [address] [id number] [place] [address]- 2951 Feb, [facility] [place] [facility] [address] [id number] [place] [address]- 1512 Feb, [facility] [place] [facility] [address] [id number] [place] [address]- 5522 Feb, [facility] [place] [facility] [address] [id number] [place] [address]- 9878 Feb, [facility] [place] [facility] [address] [id number] [place] [address]- 3345 Feb, [facility] [place] [facility] [address] [id number] [place] [address]- 7110 Jan, [facility] [place] [facility] [address] [id number] [place] [address]- 9652 Jan, [facility] [place] [facility] [address] [id number] [place] [address]- 7073 Jan, [facility] [place] [facility] [address] [id number] [place] [address]- 4726 Jan, [facility] [place] [facility] [address] [id number] [place] [address]- 2506 Jan, [facility] [place] [facility] [address] [id number] [place] [address]- 8974 Jan, [facility] [place] [facility] [address] [id number] [place] [address]- 2158 Jan, [facility] [place] [facility] [address] [id number] [place] [address] Jan, [facility] [place] [facility] [address] [id number] [place] [address] Jan, [facility] [place] [facility] [address] [id number] [place] [address] Jan, [facility] [place] [facility] [address] [id number] [place] [address] Jan, [facility] [place] [facility] [address] [id number] [place] [address] Jan, [facility] [place] [facility] [address] [id number] [place] [address] Jan, [facility] [place] [facility] [address] [id number] [place] [address] Jan, [facility] [place] [facility] [address] [id number] [place] [address]- [address] 16 Jan, 2014 [facility] [place] [facility] [address] [id number] [place] [address]- [address] 16 Jan, 2014 [facility] [place] [facility] [address] [id number] [place] [address]- [address] 13 Jan, 2014 [facility] [place] [facility] [address] [id number] [place] [address]- [address] 13 Jan, 2014 [facility] [place] [facility] [address] [id number] [place] [address]- [address] 29 Dec, 2013 [facility] [place] [facility] [address] [id number] [place] [address]- [address] 29 Dec, 2013 [facility] [place] [facility] [address] [id number] [place] [address]- 3966 26 Dec, 2013 [facility] [place] [facility] [address] [id number] [place] [address]- 8299 26 Dec, 2013 [facility] [place] [facility] [address] [id number] [place] [address]- [address]43 26 Dec, 2013 [facility] [place] [facility] [address] [id number] [place] [address]- 4218 26 Dec, 2013 [facility] [place] [facility] [address] [id number] [place] [address]- [address]49 23 Dec, 2013 [facility] [place] [facility] [address] [id number] [address] 23 Dec, 2013 [facility] [place] [facility] [address] [id number] [place] [address]- [address]48 22 Dec, 2013 [facility] [place] [facility] [address] [id number] [place] [address]- 2542 22 Dec, 2013 [facility] [place] [facility] [address] [id number] [place] [address]- [address]682 16 Dec, 2013 [facility] [place] [facility] [address] [id number] [address] 118[address] 16 Dec, 2013 [facility] [place] [facility] [address] [id number] [place] [address]- 98[address] 15 Dec, 2013 [facility] [place] [facility] [address] [id number] [place] [address]- 8480 Dec, [facility] [place] [facility] [address] [id number] [place] [address]- [address] Dec, [facility] [place] [facility] [address] [id number] [place] [address]- [address] Dec, [facility] [place] [facility] [address] [id number] [place] [address] Dec, [facility] [place] [facility] [address] [id number] [place] [address]- [address] Nov, [facility] [place] [facility] [address] [id number] [place] [address]- [address] Nov, [facility] [place] [facility] [address] [id number] [place] [address] Nov, [facility] [place] [facility] [address] [id number] [place] [address] Nov, [facility] [place] [facility] [address] [id number] [place] [address]- 9778 Nov, [facility] [place] [facility] [address] [id number] [place] [address]- 7449 Nov, [facility] [place] [facility] [address] [id number] [place] [address]- 9530 Nov, [facility] [place] [facility] [address] [id number] [place] [address]- 5987 Nov, [facility] [place] [facility] [address] [id number] [place] [address]- 1629 Nov, [facility] [place] [facility] [address] [id number] [place] [address]- 6518 Nov, [facility] [place] [facility] [address] [id number] [place] [address]- [address] 14 Nov, 2013 [facility] [place] [facility] [address] [id number] [place] [address]- [address] Nov, [facility] [place] [facility] [address] [id number] [place] [address]- [address]184 Nov, [facility] [place] [facility] [address] [id number] [place] [address]- [address]118 Nov, [facility] [place] [facility] [address] [id number] [place] [address]- [address] Nov, [facility] [place] [facility] [address] [id number] [place] [address]- 9263 Nov, [facility] [place] [facility] [address] [id number] [place] [address]- [address] Nov, [facility] [place] [facility] [address] [id number] [place] [address]- 8718 Nov, [facility] [place] [facility] [address] [id number] [place] [address]- [address] Nov, [facility] [place] [facility] [address] [id number] [place] [address]- 5[address] Nov, [facility] [place] [facility] [address] [id number] [place] [address] 6[address] Nov, [facility] [place] [facility] [address] [id number] [place] [address]- 9727 Oct, [facility] [place] [facility] [address] [id number] [place] [address]- [address] Oct, [facility] [place] [facility] [address] [id number] [place] [address] Oct, [facility] [place] [facility] [address] [id number] [place] [address] 9408 Oct, [facility] [place] [facility] [address] [id number] [place] [address] 9345 Oct, [facility] [place] [facility] [address] [id number] [place] [address] 3532 Oct, [facility] [place] [facility] [address] [id number] [place] [address] 3665 Oct, [facility] [place] [facility] [address] [id number] [place] [address] 5800 Oct, [facility] [place] [facility] [address] [id number] [place] [address]- 9310 Oct, [facility] [place] [facility] [address] [id number] [place] [address] 2785 Oct, [facility] [place] [facility] [address] [id number] [place] [address]- 0237 Oct, [facility] [place] [facility] [address] [id number] [place] [address]- 0289 Oct, [facility] [place] [facility] [address] [id number] [place] [address]- 9775 Oct, [facility] [place] [facility] [address] [id number] [place] [address]- 5770 Oct, [facility] [place] [facility] [address] [id number] [place] [address]- 4769 Oct, [facility] [place] [facility] [address] [id number] [place] [address]- 6338 Sep, [facility] [place] [facility] [address] [id number] [place] [address]- 7596 Sep, [facility] [place] [facility] [address] [id number] [place] [address]- 0833 Sep, [facility] [place] [facility] [address] [id number] [place] [address]- 4352 Sep, [facility] [place] [facility] [address] [id number] [place] [address]- 6732 Sep, [facility] [place] [facility] [address] [id number] [place] [address]- 8069 20 Sep, 2013 [facility] [place] [facility] [address] [id number] [place] [address]- 2759 18 Sep, 2013 [facility] [place] [facility] [address] [id number] [place] [address]- 7861 18 Sep, 2013 [facility] [place] [facility] [address] [id number] [place] [address]- 5777 17 Sep, 2013 [facility] [place] [facility] [address] [id number] [place] [address]- 4899 16 Sep, 2013 [facility] [place] [facility] [address] [id number] [place] [address]- 4947 Sep, [facility] [place] [facility] [address] [id number] [place] [address]- 1961 16 Sep, 2013 [facility] [place] [facility] [address] [id number] [place] [address]- 6112 Sep, [facility] [place] [facility] [address] [id number] [place] [address]- 9060 Sep, [facility] [place] [facility] [address] [id number] [place] [address]- 4473 Sep, [facility] [place] [facility] [address] [id number] [place] [address]- 9451 09 Sep, 2013 [facility] [place] [facility] [address] [id number] [place] [address]- 9456 09 Sep, 2013 [facility] [place] [facility] [address] [id number] [place] [address]- 6278 04 Sep, 2013 [facility] [place] [facility] [address] [id number] [place] [address]- 9818 03 Sep, 2013 [facility] [place] [facility] [address] [id number] [place] [address]- 4735 03 Sep, 2013 [facility] [place] [facility] [address] [id number] [place] [address]- 5217 03 Sep, 2013 [facility] [place] [facility] [address] [id number] [place] [address]- 5927 Sep, [facility] [place] [facility] [address] [id number] [place] [address]- 8439 August, [facility] [place] [facility] [address] [id number] [place] [address] 9716 August, [facility] [place] [facility] [address] [id number] [place] [address]- 3872 August, [facility] [place] [facility] [address] [id number] [place] [address]- 0494 August, [facility] [place] [facility] [address] [id number] [place] [address]- 5428 August, [facility] [place] [facility] [address] [id number] [place] [address]- 7468 August, [facility] [place] [facility] [address] [id number] [place] [address]- 8092 August, [facility] [place] [facility] [address] [id number] [place] [address]- 6820 August, [facility] [place] [facility] [address] [id number] [place] [address]- 5936 August, [facility] [place] [facility] [address] [id number] [place] [address]- 2216 August, [facility] [place] [facility] [address] [id number] [place] [address]- 4155 August, [facility] [place] [facility] [address] [id number] [place] [address]- 9438 August, [facility] [place] [facility] [address] [id number] [place] [address]- 2050 August, [facility] [place] [facility] [address] [id number] [place] [address] August, [facility] [place] [facility] [address] [id number] [place] [address]- 9820 August, [facility] [place] [facility] [address] [id number] [place] [address]- 3722 August, [facility] [place] [facility] [address] [id number] [place] [address]- 8624 August, [facility] [place] [facility] [address] [id number] [place] [address]- 2597 August, [facility] [place] [facility] [address] [id number] [place] [address]- 8735 Jul, [facility] [place] [facility] [address] [id number] [place] [address]- 5587 Jul, [facility] [place] [facility] [address] [id number] [place] [address]- 7286 Jul, [facility] [place] [facility] [address] [id number] [place] [address]- 6843 Jul, [facility] [place] [facility] [address] [id number] [place] [address]- 3746 Jul, [facility] [place] [facility] [address] [id number] [place] [address]- 2038 Jul, [facility] [place] [facility] [address] [id number] [place] [address]- 0573 Jul, [facility] [place] [facility] [address] [id number] [place] [address]- 8616 Jul, [facility] [place] [facility] [address] [id number] [place] [address]- 4771 Jul, [facility] [place] [facility] [address] [id number] [place] [address]- 8112 Jul, [facility] [place] [facility] [address] [id number] [place] [address]- 4640 Jul, [facility] [place] [facility] [address] [id number] [place] [address]- 2712 Jul, [facility] [place] [facility] [address] [id number] [place] [address]- 9052 18 Jul, 2013 [facility] [address] [id number] [place] [address]- 0414 17 Jul, 2013 [facility] [address] [id number] [place] [address]- 6824 17 Jul, 2013 [facility] [address] [id number] [place] [address]- 8411 17 Jul, 2013 [facility] [address] [id number] [place] [address]- 6442 17 Jul, 2013 [facility] [address] [id number] [place] [address]- 1540 16 Jul, 2013 [facility] [address] [id number] [place] [address]- 5736 16 Jul, 2013 [facility] [address] [id number] [place] [address]- 7962 15 Jul, 2013 [facility] [address] [id number] [place] [address]- 7113 15 Jul, 2013 [facility] [address] [id number] [place] [address]- 9213 14 Jul, 2013 [facility] [address] [id number] [place] [address]- 5850 14 Jul, 2013 [facility] [place] [facility] [address] [id number] [place] [address]- 7471 12 Jul, 2013 [facility] [place] [facility] [address] [id number] [place] [address]- 0819 12 Jul, 2013 [facility] [place] [facility] [address] [id number] [place] [address]- 1252 03 Jul, 2013 [facility] [place] [facility] [address] [id number] [place] [address]- 8236 03 Jul, 2013 [facility] [place] [facility] [address] [id number] [place] [address]- 1502 03 Jul, 2013 [facility] [place] [facility] [address] [id number] [place] [address]- 5007 Jul, [facility] [place] [facility] [address] [id number] [place] [address]- 8056 17 Jun, 2013 [facility] [place] [facility] [address] [id number] [place] [address] 2546 17 Jun, 2013 [facility] [place] [facility] [address] [id number] [place] [address] 2546 17 Jun, 2013 [facility] [place] [facility] [address] [id number] [place] [address]- 3287 17 Jun, 2013 [facility] [place] [facility] [address] [id number] [place] [address]- 9745 Jun, [facility] [place] [facility] [address] [id number] [place] [address]- 2922 Jun, [facility] [place] [facility] [address] [id number] [place] [address]- 8550 Jun, [facility] [place] [facility] [address] [id number] [place] [address]- 8461 Jun, [facility] [place] [facility] [address] [id number] [place] [address]- 2767 Jun, [facility] [place] [facility] [address] [id number] [place] [address]- 3442 Jun, [facility] [place] [facility] [address] [id number] [place] [address]- 3446 Jun, [facility] [place] [facility] [address] [id number] [place] [address]- 8825 Jun, [facility] [place] [facility] [address] [id number] [place] [address]- 7516 May, [facility] [place] [facility] [address] [id number] [place] [address]- 4036 May, [facility] [place] [facility] [address] [id number] [address]- 4312 07 May, 2013 [facility] [place] [facility] [address] [id number] [place] [address]- 8556 May, [facility] [place] [facility] [address] [id number] [place] [address] May, [facility] [place] [facility] [address] [id number] [place] [address]- 9556 May, [facility] [place] [facility] [address] [id number] [place] [address]- 4483 May, [facility] [place] [facility] [address] [id number] [place] [address]- 2732 May, [facility] [place] [facility] [address] [facility] [id number] [place] [address]- 7665 May, [facility] [place] [facility] [address] [facility] [id number] [place] [address]- 5227 May, [facility] [place] [facility] [address] [id number] [place] [address]- 2302 Apr, [facility] [place] [facility] [address] [facility] [id number] [place] [address]- 9339 Apr, [facility] [place] [facility] [address] [facility] [id number] [place] [address]- 4410 Apr, [facility] [place] [facility] [address] [id number] [place] [address]- 8180 Apr, [facility] [place] [facility] [address] [id number] [place] [address]- 9681 Apr, [facility] [place] [facility] [address] [id number] [place] [address]- 5551 Apr, [facility] [place] [facility] [address] [facility] [id number] [place] [address]- 6031 Apr, [facility] [place] [facility] [address] [id number] [place] [address]- 2209 Apr, [facility] [place] [facility] [address] [id number] [place] [address]- 5543 Apr, [facility] [place] [facility] [address] [id number] [place] [address]- 8634 Apr, [facility] [place] [facility] [address] [id number] [place] [address]- 8421 Mar, [facility] [place] [facility] [address] [id number] [place] [address]- 4785 Mar, [facility] [place] [facility] [address] [id number] [place] [address]- 5320 Mar, [facility] [place] [facility] [address] [id number] [place] [address]- 6851 Mar, [facility] [place] [facility] [address] [id number] [place] [address]- 8472 Mar, [facility] [place] [facility] [address] [id number] [place] [address]- 3924 Mar, [facility] [place] [facility] [address] [id number] [place] [address]- 6689 Feb, [facility] [place] [facility] [address] [id number] [place] [address]- 6699 Feb, [facility] [place] [facility] [address] [id number] [place] [address]- 8901 Feb, [facility] [place] [facility] [address] [id number] [place] [address]- 5422 Jan, [facility] [place] [facility] [address] [id number] [place] [address]- 4485 Jan, [facility] [place] [facility] [address] [id number] [address]- 2993 Jan, [facility] [place] [facility] [address] [id number] [place] [address]- 1146 Jan, [facility] [place] [facility] [address] [id number] [place] [address]- 4552 15 Jan, 2013 [facility] [place] [facility] [address] [id number] [place] [address]- 0464 15 Jan, 2013 [facility] [place] [facility] [address] [id number] [place] [address]- 9110 Jan, [facility] [place] [facility] [address] [id number] [place] [address]- 6853 Jan, [facility] [place] [facility] [address] [id number] [place] [address]- 1867 Jan, [facility] [place] [facility] [address] [id number] [place] [address]- 6352 Jan, [facility] [place] [facility] [address] [id number] [place] [address]- 1671 30 Dec, 2012 [facility] [place] [facility] [address] [id number] [place] [address]- 9111 25 Dec, 2012 [facility] [place] [facility] [address] [id number] [place] [address]- 2517 11 Dec, 2012 [facility] [place] [facility] [address] [id number] [place] [address]- 8380 Dec, [facility] [place] [facility] [address] [facility] [id number] [place] [address]- 1590 05 Dec, 2012 [facility] [place] [facility] [address] [id number] [place] [address]- 7184 Dec, 2012 [facility] [place] [facility] [address] [id number] [place] [address]- 8241 Nov, [facility] [place] [facility] [address] [id number] [place] [address]- 4481 Nov, [facility] [place] [facility] [address] [facility] [id number] [place] [address]- 5970 Nov, [facility] [place] [facility] [address] [id number] [place] [address]- 9201 Nov, [facility] [place] [facility] [address] [id number] [place] [address]- 0543 Nov, [facility] [place] [facility] [address] [id number] [place] [address]- 0459 Nov, [facility] [place] [facility] [address] [id number] [place] [address]- 4694 Nov, [facility] [place] [facility] [address] [id number] [place] [address]- 7915 Nov, [facility] [place] [facility] [address] [id number] [place] [address]- 7993 Nov, [facility] [place] [facility] [address] [id number] [place] [address]- 4562 Nov, [facility] [place] [facility] [address] [id number] [place] [address]- 7811 Nov, [facility] [place] [facility] [address] [id number] [place] [address]- 9266 Nov, [facility] [place] [facility] [address] [id number] [place] [address]- 8715 Oct, [facility] [place] [facility] [address] [id number] [place] [address]- 7268 Oct, [facility] [place] [facility] [address] [id number] [place] [address]- 7306 Oct, [facility] [place] [facility] [address] [id number] [place] [address]- 0392 Sep, [facility] [place] [facility] [address] [id number] [place] [address]- 1126 Sep, [facility] [place] [facility] [address] [id number] [place] [address]- 7451 Sep, [facility] [place] [facility] [address] [id number] [place] [address]- 7820 August, [facility] [place] [facility] [address] [id number] [place] [address]- 7054 August, [facility] [address] [id number] [place] [address]- 3386 August, [facility] [address] [id number] [place] [address]- 5986 August, [facility] [address] [id number] [place] [address]- 6698 August, [facility] [address] [id number] [place] [address]- 3262 August, [facility] [address] [id number] [place] [address]- 0709 Jul, [facility] [address] [id number] [place] [address]- 8515 Jul, [facility] [address] [id number] [place] [address]- 1572 Jul, [facility] [address] [id number] [place] [address]- 2088 Jul, [facility] [address] [id number] [place] [address]- 5501 Jul, [facility] [address] [id number] [place] [address]- 2255 Jul, [facility] [address] [id number] [place] [address]- 4087 2012 [facility] [place] [facility] [address] [id number] [place] [address]- 5772 20 Jun, 2012 [facility] [place] [facility] [address] [id number] [place] [address]- 3142 18 Jun, 2012 [facility] [place] [facility] [address] [id number] [place] [address]- 9088 14 Jun, 2012 [facility] [place] [facility] [address] [id number] [place] [address]- 8463 04 Jun, 2012 [facility] [address] [id number] [place] [address]- 2906 13 May, 2012 [facility] [address] [id number] [place] [address]- 1056 12 May, 2012 [facility] [address] [id number] [place] [address] 2546 11 May, 2012 [facility] [address] [id number] [place] [address]- 4866 08 May, 2012 [facility] [address] [id number] [place] [address]- 5286 Apr, [facility] [address] [id number] [place] [address]- 2565 Apr, [facility] [address] [id number] [place] [address]- 5364 Apr, [facility] [address] [id number] [place] [address]- 4586 Mar, [facility] [address] [id number] [place] [address]- 2546 Mar, [facility] [address] [id number] [place] [address]- 0886 Mar, [facility] [address] [id number] [place] 4180 29 Mar, 2012 [facility] [address] [id number] [place] [address] 2546 Mar, [facility] [address] [id number] [place] [address]- 2546 Mar, [facility] [address] [id number] [place] [address]- 7416 Mar, [facility] [address] [id number] [place] [address]- 2546 Mar, [facility] [address] [id number] [place] [address] Feb, [facility] [place] [facility] [address] [id number] [place] [address] Feb, [facility] [place] [facility] [address] [id number] [place] [address] Feb, [facility] [place] [facility] [address] [id number] [place] [address] Feb, [facility] [place] [facility] [address] [id number] [place] [address] Feb, [facility] [place] [facility] [address] [id number] [place] [address] Feb, [facility] [place] [facility] [address] [id number] [place] [address] Feb, [facility] [place] [facility] [address] [id number] [place] [address] Feb, [facility] [place] [facility] [address] [id number] [place] [address] Feb, [facility] [place] [facility] [address] [id number] [place] [address] Feb, [facility] [place] [facility] [address] [id number] [place] [address] Feb, [facility] [place] [facility] [address] [id number] [place] [address] Feb, [facility] [place] [facility] [address] [id number] [place] [address] Feb, [facility] [place] [facility] [address] [id number] [place] [address] Feb, [facility] [place] [facility] [address] [id number] [place] [address] Feb, [facility] [place] [facility] [address] [id number] [place] [address] Feb, [facility] [place] [facility] [address] [id number] [place] [address]- [address] 05 Feb, 2012 [facility] [place] [facility] [address] [id number] [place] [address]68 05 Feb, 2012 [facility] [place] [facility] [address] [facility] [id number] [place] [address] Jan, [facility] [place] [facility] [address] [facility] [id number] [place] [address] Jan, [facility] [place] [facility] [address] [id number] [place] [address] 22 Jan, 2012 [facility] [place] [facility] [address] [facility] [id number] [place] [address], [place] [address]- [address] Jan, [facility] [place] [facility] [address] [facility] [id number] [place] [address] 20 Jan, 2012 [facility] [place] [facility] [address] [facility] [id number] [place] [address] 19 Jan, 2012 [facility] [place] [facility] [address] [facility] [id number] [place] [address] 18 Jan, 2012 [facility] [place] [facility] [address] [facility] [id number] [place] [address] 18 Jan, 2012 [facility] [place] [facility] [address] [facility] [id number] [place] [address] 15 Jan, 2012 [facility] [place] [facility] [address] [facility] [id number] [place] [address] 15 Jan, 2012 [facility] [place] [facility] [address] [facility] [id number] [place] [address] 11 Jan, 2012 [facility] [place] [facility] [address] [facility] [id number] [place] [address]- [address] 11 Jan, 2012 [facility] [place] [facility] [address] [facility] [id number] [place] [address] 10 Jan, 2012 [facility] [place] [facility] [address] [facility] [id number] [place] [address] 09 Jan, 2012 [facility] [place] [facility] [address] [id number] [place] [address] Jan, [facility] [place] [facility] [address] [id number] [place] [address]- [address]79 29 Dec, 2011 [facility] [place] [facility] [address] [id number] [place] [address]46 28 Dec, 2011 [facility] [place] [facility] [address] [id number] [place] [address] 27 Dec, 2011 [facility] [place] [facility] [address] [id number] [place] [address] 26 Dec, 2011 [facility] [place] [facility] [address] [id number] [place] [address] Nov, [facility] [place] [facility] [address] [id number] [place] [address] 9149 Nov, [facility] [place] [facility] [address] [id number] [place] [address]- 1545 Nov, [facility] [place] [facility] [address] [id number] [place] [address]- [address] Nov, [facility] [place] [facility] [address] [id number] [place] [address]- [address] Nov, [facility] [place] [facility] [address] [id number] [place] [address]- [address] Nov, [facility] [place] [facility] [address] [id number] [place] [address]- 9298 Nov, [facility] [place] [facility] [address] [id number] [place] [address]- 9688 Nov, [facility] [place] [facility] [address] [id number] [place] [address]- 8173 Nov, [facility] [place] [facility] [address] [id number] [place] [address]- [address]507 Nov, [facility] [place] [facility] [address] [id number] [place] [address]- 0873 Nov, [facility] [place] [facility] [address] [id number] [place] [address]- 7[address] Oct, [facility] [place] [facility] [address] [id number] [place] [address]- 9887 Oct, [facility] [place] [facility] [address] [id number] [place] [address]- [address]559 Oct, [facility] [place] [facility] [address] [id number] [place] [address]- 6[address] Oct, [facility] [place] [facility] [address] [id number] [place] [address]- [address]34 Oct, [facility] [place] [facility] [address] [id number] [place] [address]- 1441 Oct, [facility] [place] [facility] [address] [id number] [place] [address]- 1063 Oct, [facility] [place] [facility] [address] [id number] [place] [address]- 6465 Oct, [facility] [place] [facility] [address] [id number] [place] [address]- [address] Sep, [facility] [place] [facility] [address] [id number] [place] [address]- 9626 Sep, [facility] [place] [facility] [address] [id number] [place] [address]- 7460 Sep, [facility] [place] [facility] [address] [id number] [place] [address]- [address] Sep, [facility] [place] [facility] [address] [id number] [place] [address]- 2001 Sep, [facility] [place] [facility] [address] [id number] [place] [address]- [address] Sep, [facility] [place] [facility] [address] [id number] [place] [address]- 8526 Sep, [facility] [place] [facility] [address] [id number] [place] [address]- [address] August, [facility] [address] [id number] [place] [address] August, [facility] [place] [facility] [address] [id number] [place] [address] August, [facility] [address] [id number] [place] [address] August, [facility] [place] [facility] [address] [id number] [place] [address] August, [facility] [address] [id number] [place] [address] August, [facility] [address] [id number] [place] [address] August, [facility] [address] [id number] [place] [address] August, [facility] [address] [id number] [place] [address] Jul, [facility] [place] [facility] [address] [id number] [place] [address] 17 Jul, 2011 [facility] [address] [id number] [place] [address] 13 Jul, 2011 [facility] [place] [facility] [address] [id number] [place] [address] 11 Jul, 2011 [facility] [place] [facility] [address] [id number] [place] [address] 05 Jul, 2011 [facility] [place] [facility] [address] [id number] [place] [address] 28 Jun, 2011 [facility] [place] [facility] [address] [id number] [place] [address] Jun, [facility] [place] [facility] [address] [id number] [place] [address] Jun, [facility] [place] [facility] [address] [id number] [place] [address] Jun, [facility] [place] [facility] [address] [id number] [place] [address] Jun, [facility] [place] [facility] [address] [id number] [place] [address] Jun, [facility] [place] [facility] [address] [id number] [place] [address] Jun, [facility] [place] [facility] [address] [id number] [place] [address] Jun, [facility] [place] [facility] [address] [id number] [place] [address] Jun, [facility] [place] [facility] [address] [id number] [place] [address] May, [facility] [place] [facility] [address] [id number] [place] [address] 24 May, 2011 [facility] [place] [facility] [address] [id number] [place] [address] May, [facility] [place] [facility] [address] [id number] [place] [address] May, [facility] [place] [facility] [address] [id number] [place] [address] May, [facility] [place] [facility] [address] [id number] [place] [address] May, [facility] [place] [facility] [address] [id number] [place] [address]- [address] 07 May, 2011 [facility] [place] [facility] [address] [id number] [place] [address] 06 May, 2011 [facility] [place] [facility] [address] [id number] [place] [address] Apr, [facility] [place] [facility] [address] [id number] [place] [address] 30 Apr, 2011 [facility] [address] [id number] [place] [address] Apr, [facility] [address] [id number] [place] [address] Apr, [facility] [address] [id number] [place] [address] Apr, [facility] [address] [id number] [place] [address] 1448 Apr, [facility] [address] [id number] [place] [address] Mar, [facility] [address] [id number] [place] [address] Mar, [facility] [address] [id number] [place] [address] Mar, [facility] [address] [id number] [place] [address] Mar, [facility] [address] [id number] [place] [address] 15 Mar, 2011 [facility] [address] [facility] [id number] [place] [address] Mar, [facility] [address] [id number] [place] [address] Mar, [facility] [place] [facility] [address] [id number] [place] [address]46 Mar, [facility] [place] [facility] [address] [id number] [place] [address] Mar, [facility] [place] [facility] [address] [id number] [place] [address] 06 Mar, 2011 [facility] [address] [id number] [place] [address]- [address] Mar, [facility] [place] [facility] [address] [id number] [place] [address] Mar, [facility] [place] [facility] [address] [id number] [place] [address]- [address] Mar, [facility] [place] [facility] [address] [id number] [place] [address] Feb, [facility] [place] [facility] [address] [id number] [place] [address] Feb, [facility] [place] [facility] [address] [id number] [place] [address]32 Feb, [facility] [place] [facility] [address] [id number] [place] [address]- 73[address] Feb, [facility] [place] [facility] [address] [id number] [place] [address]- [address] Feb, [facility] [place] [facility] [address] [id number] [place] [address]- [address] Feb, [facility] [place] [facility] [address] [id number] [place] [address]841 Feb, [facility] [place] [facility] [address] [id number] [place] [address] Jan, [facility] [place] [facility] [address] [id number] [place] [address] Jan, [facility] [place] [facility] [address] [id number] [place] [address]479 Jan, [facility] [place] [facility] [address] [id number] [place] [address] Nov, [facility] [place] [facility] [address] [id number] [place] [address] Mar, [facility] [place] [facility] [address] [id number] [place] [address] Mar, [facility] [place] [facility] [address] [id number] [address] 20 Mar, 2010 [facility] [address] [id number] [address] Mar, [facility] [address] [facility] [id number] [address] Mar, [facility] [address] [id number] [address] 30 Feb, 2010 [facility] [id number] [address] 30 Feb, 2010 [facility] [address] [id number] [address] 24 Feb, 2010 [facility] [id number] [address] Feb, [facility] [address] [id number] [address] Feb, [facility] [address] [id number] [address] 15 Feb, 2010 IMMUNIZATIONS No Known Immunizations [...]
--- OUTSIDE RECORDS SUMMARY | 2017-12-22 04:51 | XMS REPORT ---
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 [facility] [address] [id number] [place] [address]- 6070 23 Jun, 2014 [facility] [place] [facility] [address] [id number] [place] [address]- 1364 23 Jun, 2014 [facility] [place] [facility] [address] [id number] [place] [address]- 6385 23 Jun, 2014 [facility] [place] [facility] [address] [id number] [place] [address]- 7453 Jun, [facility] [place] [facility] [address] [id number] [place] [address]- 6628 Jun, [facility] [place] [facility] [address] [id number] [place] [address]- 3041 Jun, [facility] [place] [facility] [address] [id number] [place] [address]- 5881 Jun, [facility] [place] [facility] [address] [id number] [place] [address]- 6732 19 Jun, 2014 [facility] [place] [facility] [address] [id number] [place] [address]- 6409 19 Jun, 2014 [facility] [place] [facility] [address] [id number] [place] [address]- 0340 18 Jun, 2014 [facility] [place] [facility] [address] [id number] [place] [address]- 1497 18 Jun, 2014 [facility] [place] [facility] [address] [id number] [place] [address]- 4576 18 Jun, 2014 [facility] [place] [facility] [address] [id number] [place] [address]- 4894 18 Jun, 2014 [facility] [place] [facility] [address] [id number] [place] [address]- 6468 17 Jun, 2014 [facility] [place] [facility] [address] [id number] [place] [address]- 7852 17 Jun, 2014 [facility] [place] [facility] [address] [id number] [place] [address]- 7186 17 Jun, 2014 [facility] [place] [facility] [address] [id number] [place] [address]- 6988 17 Jun, 2014 [facility] [place] [facility] [address] [id number] [place] [address]- 3226 13 Jun, 2014 [facility] [place] [facility] [address] [id number] [place] [address]- 8511 13 Jun, 2014 [facility] [place] [facility] [address] [id number] [place] [address]- 3931 12 Jun, 2014 [facility] [place] [facility] [address] [id number] [place] [address]- 8610 12 Jun, 2014 [facility] [place] [facility] [address] [id number] [place] [address]- 0400 10 Jun, 2014 [facility] [place] [facility] [address] [id number] [place] [address]- 7348 10 Jun, 2014 [facility] [place] [facility] [address] [id number] [place] [address]- 6703 10 Jun, 2014 [facility] [place] [facility] [address] [id number] [place] [address]- 5539 10 Jun, 2014 [facility] [place] [facility] [address] [id number] [place] [address]- 5527 06 Jun, 2014 [facility] [place] [facility] [address] [id number] [place] [address]- 3118 06 Jun, 2014 [facility] [place] [facility] [address] [id number] [place] [address]- 2778 05 Jun, 2014 [facility] [place] [facility] [address] [id number] [place] [address]- 1403 05 Jun, 2014 [facility] [place] [facility] [address] [id number] [place] [address]- 4826 02 Jun, 2014 [facility] [place] [facility] [address] [id number] [place] [address]- 2845 Jun, [facility] [place] [facility] [address] [id number] [place] [address]- 1397 May, 2014 [facility] [place] [facility] [address] [facility] [id number] [place] [address]- 0939 May, 2014 [facility] [place] [facility] [address] [facility] [id number] [place] [address]- 8523 May, 2014 [facility] [place] [facility] [address] [facility] [id number] [place] [address]- 2729 May, 2014 [facility] [place] [facility] [address] [facility] [id number] [place] [address]- 1736 May, 2014 [facility] [place] [facility] [address] [facility] [id number] [place] [address]- 2954 May, 2014 [facility] [place] [facility] [address] [facility] [id number] [place] [address] May, 2014 [facility] [place] [facility] [address] [facility] [id number] [place] [address] May, 2014 [facility] [place] [facility] [address] [facility] [id number] [place] [address] May, 2014 [facility] [place] [facility] [address] [facility] [id number] [place] [address] May, 2014 [facility] [place] [facility] [address] [facility] [id number] [place] [address] May, 2014 [facility] [place] [facility] [address] [facility] [id number], [place] [address] May, 2014 [facility] [place] [facility] [address] [facility] [id number] [place] [address] May, 2014 [facility] [place] [facility] [address] [facility] [id number] [place] [address] May, 2014 [facility] [place] [facility] [address] [facility] [id number], [place] [address] 02 May, 2014 [facility] [place] [facility] [address] [id number] [place] [address] May, [facility] [place] [facility] [address] [id number] [place] [address] Apr, [facility] [place] [facility] [address] [id number] [place] [address] Apr, [facility] [place] [facility] [address] [id number] [place] [address] Apr, [facility] [place] [facility] [address] [id number] [place] [address] Apr, [facility] [place] [facility] [address] [id number] [place] [address] Apr, [facility] [place] [facility] [address] [id number] [place] [address] Apr, [facility] [place] [facility] [address] [id number] [place] [address] Apr, [facility] [place] [facility] [address] [id number] [place] [address] Apr, [facility] [place] [facility] [address] [id number] [place] [address] Apr, [facility] [place] [facility] [address] [id number] [place] [address] Apr, [facility] [place] [facility] [address] [id number] [place] [address] Apr, [facility] [place] [facility] [address] [id number] [place] [address] Apr, [facility] [place] [facility] [address] [id number] [place] [address] Apr, [facility] [place] [facility] [address] [id number] [place] [address] Apr, [facility] [place] [facility] [address] [id number] [place] [address] Apr, [facility] [place] [facility] [address] [id number] [place] [address] Mar, [facility] [place] [facility] [address] [id number] [place] [address] Mar, [facility] [place] [facility] [address] [id number] [place] [address] Mar, [facility] [place] [facility] [address] [id number] [place] [address] Mar, [facility] [place] [facility] [address] [id number] [place] [address] Mar, [facility] [place] [facility] [address] [id number] [place] [address] Mar, [facility] [place] [facility] [address] [id number] [place] [address] Mar, [facility] [place] [facility] [address] [id number] [place] [address] 15 Mar, 2014 [facility] [place] [facility] [address] [id number] [place] [address] Mar, [facility] [place] [facility] [address] [id number] [place] [address] Mar, [facility] [place] [facility] [address] [id number] [place] [address] Mar, [facility] [place] [facility] [address] [id number] [place] [address] 15 Mar, 2014 [facility] [place] [facility] [address] [id number] [place] [address] Mar, [facility] [place] [facility] [address] [id number] [place] [address] Mar, [facility] [place] [facility] [address] [id number] [place] [address] 8490 Mar, [facility] [place] [facility] [address] [id number] [place] [address] Mar, [facility] [place] [facility] [address] [id number] [place] [address] Mar, [facility] [place] [facility] [address] [id number] [place] [address] Mar, [facility] [place] [facility] [address] [id number] [place] [address] Feb, [facility] [place] [facility] [address] [id number] [place] [address] Feb, [facility] [place] [facility] [address] [id number] [place] [address] Feb, [facility] [place] [facility] [address] [id number] [place] [address] Feb, [facility] [place] [facility] [address] [id number] [place] [address] Feb, [facility] [place] [facility] [address] [id number] [place] [address] Feb, [facility] [place] [facility] [address] [id number] [place] [address] 6095 Feb, [facility] [place] [facility] [address] [id number] [place] [address] 8377 Feb, [facility] [place] [facility] [address] [id number] [place] [address] 9545 Jan, [facility] [place] [facility] [address] [id number] [place] [address] 8205 Jan, [facility] [place] [facility] [address] [id number] [place] [address] 3498 Jan, [facility] [place] [facility] [address] [id number] [place] [address] 5161 Jan, [facility] [place] [facility] [address] [id number] [place] [address] 4535 Jan, [facility] [place] [facility] [address] [id number] [place] [address] 6154 Jan, [facility] [place] [facility] [address] [id number] [place] [address] 3750 Jan, [facility] [place] [facility] [address] [id number] [place] [address]- 0041 Jan, [facility] [place] [facility] [address] [id number] [place] [address] 9190 Jan, [facility] [place] [facility] [address] [id number] [place] [address]- 1748 Jan, [facility] [place] [facility] [address] [id number] [place] [address]- 5205 Jan, [facility] [place] [facility] [address] [id number] [place] [address]- 0153 Jan, [facility] [place] [facility] [address] [id number] [place] [address]- 1746 Jan, [facility] [place] [facility] [address] [id number] [place] [address]- 7342 Jan, [facility] [place] [facility] [address] [id number] [place] [address]- 1391 Jan, [facility] [place] [facility] [address] [id number] [place] [address] 3422 Jan, [facility] [place] [facility] [address] [id number], [place] [address] 18[address] Jan, [facility] [place] [facility] [address] [id number] [place] [address] 8994 Jan, [facility] [place] [facility] [address] [id number] [place] [address]- 3736 Dec, [facility] [place] [facility] [address] [id number] [place] [address]- 9736 29 Dec, 2013 [facility] [place] [facility] [address] [id number] [place] [address]- 6385 26 Sep, 2013 [facility] [place] [facility] [address] [id number] [place] [address] 2546 26 Sep, 2013 [facility] [place] [facility] [address] [id number] [place] [address]- 1646 26 Sep, 2013 [facility] [place] [facility] [address] [id number] [place] [address] 2546 26 Sep, 2013 [facility] [place] [facility] [address] [id number] [place] [address]- 9414 23 Sep, 2013 [facility] [place] [facility] [address] [id number] [place] [address]- 2557 23 Sep, 2013 [facility] [place] [facility] [address] [id number] [place] [address]- 2217 22 Dec, 2013 [facility] [place] [facility] [address] [id number] [place] [address]- 4155 22 Dec, 2013 [facility] [place] [facility] [address] [id number] [place] [address]- 2540 16 Sep, 2013 [facility] [place] [facility] [address] [id number] [place] [address]- 4935 16 Dec, 2013 [facility] [place] [facility] [address] [id number] [place] [address]- 0811 15 Dec, 2013 [facility] [place] [facility] [address] [id number] [place] [address] 2543 15 Dec, 2013 [facility] [place] [facility] [address] [id number], [place] [address]- 25[address] 09 Dec, 2013 [facility] [place] [facility] [address] [id number] [place] [address]- 2544 03 Dec, 2013 [facility] [place] [facility] [address] [id number] [place] [address]- 2048 03 Dec, 2013 [facility] [place] [facility] [address] [id number] [place] [address]- 6019 29 Nov, 2013 [facility] [place] [facility] [address] [id number] [place] [address]- 9623 Nov, [facility] [place] [facility] [address] [id number] [place] [address] 2857 Nov, [facility] [place] [facility] [address] [id number] [place] [address] 7839 Nov, [facility] [place] [facility] [address] [id number] [place] [address]- 5919 Nov, [facility] [place] [facility] [address] [id number] [place] [address]- 1041 Nov, [facility] [place] [facility] [address] [id number] [place] [address]- 7431 Nov, [facility] [place] [facility] [address] [id number] [place] [address]- 6951 Nov, [facility] [place] [facility] [address] [id number] [place] [address] 9158 Nov, [facility] [place] [facility] [address] [id number] [place] [address]- 8378 Nov, [facility] [place] [facility] [address] [id number] [place] [address]- 4663 Nov, [facility] [place] [facility] [address] [id number] [place] [address]- 5756 Nov, [facility] [place] [facility] [address] [id number] [place] [address]- 0475 Nov, [facility] [place] [facility] [address] [id number] [place] [address]- 9100 Nov, [facility] [place] [facility] [address] [id number] [place] [address]- 0383 Nov, [facility] [place] [facility] [address] [id number] [place] [address]- 4082 Nov, [facility] [place] [facility] [address] [id number] [place] [address]- 3058 Nov, [facility] [place] [facility] [address] [id number] [place] [address]- 3549 Nov, [facility] [place] [facility] [address] [id number] [place] [address]- 4653 Nov, [facility] [place] [facility] [address] [id number] [place] [address]- 5276 Nov, [facility] [place] [facility] [address] [id number] [place] [address]- 1071 Nov, [facility] [place] [facility] [address] [id number] [place] [address] 6901 Oct, [facility] [place] [facility] [address] [id number] [place] [address]- 6792 Oct, [facility] [place] [facility] [address] [id number] [place] [address]- 5621 Oct, [facility] [place] [facility] [address] [id number] [place] [address]- 4802 Oct, [facility] [place] [facility] [address] [id number] [place] [address]- 8657 Oct, [facility] [place] [facility] [address] [id number] [place] [address]- 1643 Oct, [facility] [place] [facility] [address] [id number] [place] [address]- 8937 Oct, [facility] [place] [facility] [address] [id number] [place] [address]- 0163 Oct, [facility] [place] [facility] [address] [id number] [place] [address]- 3847 Oct, [facility] [place] [facility] [address] [id number] [place] [address]- 7106 Oct, [facility] [place] [facility] [address] [id number] [place] [address]- 0042 Oct, [facility] [place] [facility] [address] [id number] [place] [address]- 5068 Oct, [facility] [place] [facility] [address] [id number] [place] [address]- 8614 Oct, [facility] [place] [facility] [address] [id number] [place] [address]- 8038 Oct, [facility] [place] [facility] [address] [id number] [place] [address]- 0687 Oct, [facility] [place] [facility] [address] [id number] [place] [address]- 2981 Sep, [facility] [place] [facility] [address] [id number] [place] [address]- 9712 Sep, [facility] [place] [facility] [address] [id number] [place] [address]- 3388 Sep, [facility] [place] [facility] [address] [id number] [place] [address]- 9552 Sep, [facility] [place] [facility] [address] [id number] [place] [address]- 9362 Sep, [facility] [place] [facility] [address] [id number] [place] [address]- 6545 Sep, [facility] [place] [facility] [address] [id number] [place] [address]- 7830 Sep, [facility] [place] [facility] [address] [id number] [place] [address]- 3469 Sep, [facility] [place] [facility] [address] [id number] [place] [address]- 3418 17 Sep, 2013 [facility] [place] [facility] [address] [id number] [place] [address]- 8036 Sep, [facility] [place] [facility] [address] [id number] [place] [address]- 1148 Sep, [facility] [place] [facility] [address] [id number] [place] [address]- 0175 Sep, [facility] [place] [facility] [address] [id number] [place] [address]- 9898 Sep, [facility] [place] [facility] [address] [id number] [place] [address]- 9120 Sep, [facility] [place] [facility] [address] [id number] [place] [address]- 1566 Sep, [facility] [place] [facility] [address] [id number] [place] [address]- 5374 Sep, [facility] [place] [facility] [address] [id number] [place] [address]- 8381 Sep, [facility] [place] [facility] [address] [id number] [place] [address]- 9045 Sep, [facility] [place] [facility] [address] [id number] [place] [address]- 7649 Sep, [facility] [place] [facility] [address] [id number] [place] [address]- 4411 Sep, [facility] [place] [facility] [address] [id number] [place] [address]- 7216 Sep, [facility] [place] [facility] [address] [id number] [place] [address]- 9131 Sep, [facility] [place] [facility] [address] [id number] [place] [address]- 4324 August, [facility] [place] [facility] [address] [id number] [place] [address]- 6545 August, [facility] [place] [facility] [address] [id number] [place] [address]- 0627 August, [facility] [place] [facility] [address] [id number] [place] [address]- 7904 August, [facility] [place] [facility] [address] [id number] [place] [address]- 5184 August, [facility] [place] [facility] [address] [id number] [place] [address]- 7857 August, [facility] [place] [facility] [address] [id number] [place] [address]- 7364 August, [facility] [place] [facility] [address] [id number] [place] August, [facility] [place] [facility] [address] [id number] [place] [address]- 7170 August, [facility] [place] [facility] [address] [id number] [place] [address]- 4684 August, [facility] [place] [facility] [address] [id number] [place] [address]- 6572 August, [facility] [place] [facility] [address] [id number] [place] [address]- 0826 August, [facility] [place] [facility] [address] [id number] [place] [address]- 6930 August, [facility] [place] [facility] [address] [id number] [place] [address]- 4986 August, [facility] [place] [facility] [address] [id number] [place] [address]- 3163 August, [facility] [place] [facility] [address] [id number] [place] [address]- 2538 August, [facility] [place] [facility] [address] [id number] [place] [address]- 3233 August, [facility] [place] [facility] [address] [id number] [place] [address]- 4916 August, [facility] [place] [facility] [address] [id number] [place] [address]- 0574 Jul, [facility] [place] [facility] [address] [id number] [place] [address]- 7734 Jul, [facility] [place] [facility] [address] [id number] [place] [address]- 7571 Jul, [facility] [place] [facility] [address] [id number] [place] [address]- 9092 25 Jul, 2013 [facility] [address] [id number] [place] [address]- 7581 24 Jul, 2013 [facility] [place] [facility] [address] [id number] [place] [address]- 8604 Jul, [facility] [address] [id number] [place] [address]- 1771 Jul, [facility] [place] [facility] [address] [id number] [place] [address]- 6151 Jul, [facility] [address] [id number] [place] [address]- 7866 Jul, [facility] [address] [id number] [place] [address]- 6959 Jul, [facility] [address] [id number] [place] [address]- 2947 Jul, [facility] [address] [id number] [place] [address]- 4709 Jul, [facility] [place] [facility] [address] [id number] [place] [address]- 3854 Jul, [facility] [address] [id number] [place] [address]- 6915 Jul, [facility] [place] [facility] [address] [id number] [place] [address]- 2635 Jul, [facility] [place] [facility] [address] [id number] [place] [address]- 3152 Jul, [facility] [place] [facility] [address] [id number] [place] [address]- 7249 Jul, [facility] [place] [facility] [address] [id number] [place] [address]- 2113 16 Jul, 2013 [facility] [place] [facility] [address] [id number] [place] [address]- 5333 16 Jul, 2013 [facility] [place] [facility] [address] [id number] [place] [address]- 4621 15 Jul, 2013 [facility] [place] [facility] [address] [id number] [place] [address]- 8319 15 Jul, 2013 [facility] [place] [facility] [address] [id number] [place] [address]- 1446 14 Jul, 2013 [facility] [place] [facility] [address] [id number] [place] [address]- 3085 14 Jul, 2013 [facility] [place] [facility] [address] [id number] [place] [address]- 0341 Jul, [facility] [place] [facility] [address] [id number] [place] [address]- 6182 Jul, [facility] [place] [facility] [address] [id number] [place] [address]- 1380 Jul, [facility] [place] [facility] [address] [id number] [place] [address]- 0899 Jul, [facility] [place] [facility] [address] [id number] [place] [address]- 8765 Jul, [facility] [place] [facility] [address] [id number] [place] [address]- 3717 Jul, [facility] [place] [facility] [address] [id number] [place] [address]- 5397 17 Jun, 2013 [facility] [place] [facility] [address] [id number] [place] [address]- 8593 17 Jun, 2013 [facility] [place] [facility] [address] [id number] [place] [address]- 6479 17 Jun, 2013 [facility] [place] [facility] [address] [id number] [place] [address]- 6324 17 Jun, 2013 [facility] [place] [facility] [address] [id number] [place] [address]- 4889 13 Jun, 2013 [facility] [place] [facility] [address] [id number] [place] [address]- 9588 13 Jun, 2013 [facility] [place] [facility] [address] [id number] [place] [address]- 8813 11 Jun, 2013 [facility] [place] [facility] [address] [id number] [place] [address]- 0471 11 Jun, 2013 [facility] [place] [facility] [address] [id number] [place] [address]- 6578 10 Jun, 2013 [facility] [place] [facility] [address] [id number] [place] [address]- 3454 10 Jun, 2013 [facility] [place] [facility] [address] [id number] [place] [address]- 8632 04 Jun, 2013 [facility] [place] [facility] [address] [id number] [place] [address]- 6545 04 Jun, 2013 [facility] [place] [facility] [address] [id number] [place] [address]- 7748 28 May, 2013 [facility] [place] [facility] [address] [id number] [place] [address]- 3506 28 May, 2013 [facility] [place] [facility] [address] [facility] [id number] [place] [address]- 8870 07 May, 2013 [facility] [place] [facility] [address] [facility] [id number] [place] [address]- 4845 07 May, 2013 [facility] [place] [facility] [address] [facility] [id number] [place] [address]- 3196 05 May, 2013 [facility] [place] [facility] [address] [facility] [id number] [place] [address]- 4239 05 May, 2013 [facility] [place] [facility] [address] [id number] [place] [address]- 3902 04 May, 2013 [facility] [place] [facility] [address] [facility] [id number] [place] [address]- 2292 04 May, 2013 [facility] [place] [facility] [address] [facility] [id number] [place] [address]- 6807 May, [facility] [place] [facility] [address] [id number] [place] [address]- 5429 May, [facility] [place] [facility] [address] [id number] [place] [address]- 9702 Apr, [facility] [place] [facility] [address] [id number] [place] [address]- 5796 Apr, [facility] [place] [facility] [address] [id number] [place] [address]- 2909 Apr, [facility] [place] [facility] [address] [id number] [place] [address]- 2544 Apr, [facility] [place] [facility] [address] [id number] [place] [address]- 6522 Apr, [facility] [place] [facility] [address] [id number] [place] [address]- 4796 Apr, [facility] [place] [facility] [address] [id number] [place] [address]- 7351 Apr, [facility] [place] [facility] [address] [id number] [place] [address]- 0592 Apr, [facility] [place] [facility] [address] [id number] [place] [address]- 6238 Apr, [facility] [place] [facility] [address] [id number] [place] [address]- 5067 Apr, [facility] [place] [facility] [address] [id number], [place] [address]- 3783 Mar, [facility] [place] [facility] [address] [id number] [place] [address]- 1051 Mar, [facility] [place] [facility] [address] [id number] [place] [address]- 0533 Mar, [facility] [place] [facility] [address] [id number] [place] [address]- 1096 Mar, [facility] [place] [facility] [address] [id number] [place] [address]578 Mar, [facility] [place] [facility] [address] [id number] [place] [address]- 1370 Mar, [facility] [place] [facility] [address] [id number] [place] [address]055 Feb, [facility] [place] [facility] [address] [id number] [place] [address]- 2846 Feb, [facility] [place] [facility] [address] [id number] [place] [address]- 0257 Feb, [facility] [place] [facility] [address] [id number] [place] [address] Jan, [facility] [place] [facility] [address] [id number] [place] [address]- 7363 Jan, [facility] [place] [facility] [address] [id number] [place] [address]- 6561 Jan, [facility] [place] [facility] [address] [id number] [place] [address]- 7505 Jan, [facility] [place] [facility] [address] [id number] [place] [address]- 3902 Jan, [facility] [place] [facility] [address] [id number] [place] [address]- 0958 Jan, [facility] [place] [facility] [address] [id number] [place] [address]- 4952 Jan, [facility] [place] [facility] [address] [id number] [place] [address]- 9953 Jan, [facility] [place] [facility] [address] [id number] [place] [address]- 0528 04 Jan, 2013 [facility] [place] [facility] [address] [id number] [place] 6406 Jan, [facility] [place] [facility] [address] [id number] [place] [address] 30 Dec, 2012 [facility] [place] [facility] [address] [id number] [place] [address] 25 Dec, 2012 [facility] [place] [facility] [address] [id number] [place] [address] 11 Dec, 2012 [facility] [place] [facility] [address] [id number] [place] [address] 09 Dec, 2012 [facility] [place] [facility] [address] [id number] [place] [address] 05 Dec, 2012 [facility] [place] [facility] [address] [id number] [place] [address] 04 Dec, 2012 [facility] [place] [facility] [address] [id number] [place] [address] Nov, [facility] [place] [facility] [address] [id number] [place] [address] Nov, [facility] [place] [facility] [address] [id number] [place] [address] Nov, [facility] [place] [facility] [address] [id number] [place] [address] Nov, [facility] [place] [facility] [address] [id number] [place] [address] Nov, [facility] [place] [facility] [address] [id number] [place] [address] 45[address] Nov, [facility] [place] [facility] [address] [id number] [place] [address] Nov, [facility] [place] [facility] [address] [id number] [place] [address] Nov, [facility] [place] [facility] [address] [id number] [place] [address] Nov, [facility] [place] [facility] [address] [id number] [place] [address] Nov, [facility] [place] [facility] [address] [id number] [place] [address] Nov, [facility] [address] [id number] [place] [address] 7079 Nov, [facility] [place] [facility] [address] [id number] [place] [address] Oct, [facility] [place] [facility] [address] [id number] [place] [address] Oct, [facility] [place] [facility] [address] [id number] [place] [address]140 Oct, [facility] [address] [id number] [place] [address] Sep, [facility] [place] [facility] [address] [id number] [place] [address]- 285[address] Sep, [facility] [address] [id number] [place] [address] Sep, [facility] [place] [facility] [address] [id number] [place] [address] August, [facility] [address] [id number] [place] [address] August, [facility] [place] [facility] [address] [id number] [place] [address] 39[address] August, [facility] [place] [facility] [address] [id number] [place] [address] 17[address] August, [facility] [place] [facility] [address] [id number] [place] [address]136 August, [facility] [place] [facility] [address] [id number] [place] [address] 6276 August, [facility] [place] [facility] [address] [id number] [place] [address] Jul, [facility] [place] [facility] [address] [id number] [place] [address] 1279 Jul, [facility] [place] [facility] [address] [id number] [place] [address]- [address]261 11 Jul, 2012 [facility] [address] [id number] [place] [address]61 10 Jul, 2012 [facility] [address] [id number] [place] [address] 6[address] 04 Jul, 2012 [facility] [address] [id number] [place] [address]33 04 Jul, 2012 [facility] [address] [id number] [place] [address] 2012 [facility] [address] [id number] [place] [address]- [address]697 20 Jun, 2012 [facility] [address] [id number] [place] [address]64 18 Jun, 2012 [facility] [address] [id number] [place] [address] 14 Jun, 2012 [facility] [address] [id number] [place] [address]- 8068 04 Jun, 2012 [facility] [address] [id number] [place] [address]389 13 May, 2012 [facility] [address] [id number] [place] [address] 8309 12 May, 2012 [facility] [address] [id number] [place] [address]- [address] May, [facility] [address] [id number] [place] [address]- 1634 08 May, 2012 [facility] [address] [id number] [place] [address]- 6496 17 Apr, 2012 [facility] [address] [id number] [place] [address]136 Apr, [facility] [address] [id number] [place] [address] 9752 Apr, [facility] [place] [facility] [address] [id number] [place] [address] Mar, [facility] [place] [facility] [address] [id number] [place] [address] 9914 Mar, [facility] [place] [facility] [address] [id number] [place] [address]- [address] Mar, [facility] [place] [facility] [address] [id number] [place] [address]- 9257 Mar, [facility] [place] [facility] [address] [id number] [place] [address]- 3367 Mar, [facility] [place] [facility] [address] [id number] [place] [address]- 0313 Mar, [facility] [place] [facility] [address] [id number] [place] [address]- 7161 Mar, [facility] [place] [facility] [address] [id number] [place] [address]- 9191 Mar, [facility] [place] [facility] [address] [id number] [place] [address] 0924 Feb, [facility] [place] [facility] [address] [id number] [place] [address] 6470 Feb, [facility] [place] [facility] [address] [id number], [place] [address] Feb, [facility] [place] [facility] [address] [id number], [place] [address] 9816 Feb, [facility] [place] [facility] [address] [id number] [place] [address]- 1680 Feb, [facility] [place] [facility] [address] [id number] [place] [address]- 3040 Feb, [facility] [place] [facility] [address] [id number] [place] [address] 8903 Feb, [facility] [place] [facility] [address] [id number] [place] [address]- 6170 Feb, [facility] [place] [facility] [address] [id number] [place] [address]- 6971 Feb, [facility] [place] [facility] [address] [id number] [place] [address]- 3581 Feb, [facility] [place] [facility] [address] [id number] [place] [address]- 5018 Feb, [facility] [place] [facility] [address] [id number] [place] [address]- 4967 Feb, [facility] [place] [facility] [address] [id number] [place] [address]- 7212 Feb, [facility] [facility] [address] [id number] [place] [address] Feb, [facility] [place] [facility] [address] [id number] [place] [address] Feb, [facility] [place] [facility] [address] [id number] [place] [address] Feb, [facility] [place] [facility] [address] [id number] [place] [address] Feb, [facility] [place] [facility] [address] [facility] [id number] [place] [address] Feb, [facility] [place] [facility] [address] [id number] [place] [address] 65[address] Jan, [facility] [place] [facility] [address] [id number], [place] [address] Jan, [facility] [place] [facility] [address] [id number] [place] [address] Jan, [facility] [place] [facility] [address] [id number] [place] [address] Jan, [facility] [place] [facility] [address] [id number], [place] [address] Jan, [facility] [place] [facility] [address] [id number] [place] [address] 19 Jan, 2012 [facility] [place] [facility] [address] [id number] [place] [address] 1735 18 Jan, 2012 [facility] [place] [facility] [address] [id number] [place] [address]- 1179 18 Jan, 2012 [facility] [place] [facility] [address] [id number] [place] [address], [place] [address] 2758 15 Jan, 2012 [facility] [place] [facility] [address] [id number] [place] [address]- 2995 15 Jan, 2012 [facility] [place] [facility] [address] [id number] [place] [address]- 4832 11 Jan, 2012 [facility] [place] [facility] [address] [id number] [place] [address]- 9554 11 Jan, 2012 [facility] [place] [facility] [address] [id number] [place] [address]- 9569 10 Jan, 2012 [facility] [place] [facility] [address] [id number] [place] [address]- 7534 09 Jan, 2012 [facility] [place] [facility] [address] [id number] [place] [address]- 3854 02 Jan, 2012 [facility] [place] [facility] [address] [id number] [place] [address]- 7785 29 Dec, 2011 [facility] [place] [facility] [address] [id number] [place] [address]- 6061 28 Dec, 2011 [facility] [place] [facility] [address] [id number] [place] [address]- 2303 27 Dec, 2011 [facility] [place] [facility] [address] [id number] [place] [address]- 1448 26 Dec, 2011 [facility] [place] [facility] [address] [id number] [place] [address]- 2481 24 Nov, 2011 [facility] [place] [facility] [address] [id number] [place] [address]- 3185 Nov, [facility] [place] [facility] [address] [id number] [place] [address]- 0495 Nov, [facility] [place] [facility] [address] [id number] [place] [address]- 5249 Nov, [facility] [place] [facility] [address] [id number] [place] [address]- 8327 Nov, [facility] [place] [facility] [address] [id number] [place] [address]- 2630 Nov, [facility] [place] [facility] [address] [id number] [place] [address]- 8105 Nov, [facility] [place] [facility] [address] [id number] [place] [address]- 6350 Nov, [facility] [place] [facility] [address] [id number] [place] [address] 7935 Nov, [facility] [place] [facility] [address] [id number] [place] [address]- 1782 Nov, [facility] [place] [address] [id number] [place] [address]- 8061 Nov, [facility] [place] [facility] [address] [id number] [place] [address]- 4726 Oct, [facility] [place] [facility] [address] [id number] [place] [address]- 3091 Oct, [facility] [place] [facility] [address] [id number] [place] [address]- 2313 Oct, [facility] [place] [facility] [address] [id number] [place] [address]- 1560 Oct, [facility] [place] [facility] [address] [id number] [place] [address]- 4964 Oct, [facility] [place] [facility] [address] [id number] [place] [address]- 4195 Oct, [facility] [address] [id number] [place] [address] 0036 Oct, [facility] [address] [id number] [place] [address] 8140 Oct, [facility] [address] [id number] [place] [address] 3943 Sep, [facility] [address] [id number] [place] [address] 0900 Sep, [facility] [address] [id number] [place] [address]- 2163 Sep, [facility] [address] [id number] [place] [address]- 4150 Sep, [facility] [address] [id number] [place] [address]- 9061 Sep, [facility] [address] [id number] [place] [address]- 2284 Sep, [facility] [address] [id number] [place] [address]- 7991 Sep, [facility] [address] [id number] [place] [address]- 45[address] August, [facility] [address] [id number] [place] [address]- 1511 August, [facility] [address] [id number] [place] [address]- 0562 August, [facility] [address] [id number] [place] [address]- 9006 August, [facility] [address] [id number] [place] [address]- 0769 August, [facility] [address] [id number] [place] [address] 4[address] August, [facility] [address] [id number] [place] [address]- 0715 August, [facility] [address] [id number] [place] [address] 2106 August, [facility] [address] [id number] [place] [address]- 3646 28 Jul, 2011 [facility] [address] [id number] [place] [address]- 2036 17 Jul, 2011 [facility] [address] [id number] [place] [address]- 3266 13 Jul, 2011 [facility] [address] [id number] [place] [address]- 4739 Jul, [facility] [address] [id number] [place] [address]- 2456 05 Jul, 2011 [facility] [address] [id number] [place] [address]- 2711 Jun, [facility] [address] [id number] [place] [address]- 3205 2011 [facility] [address] [id number] [place] [address]- 3345 Jun, [facility] [address] [id number] [place] [address]- 2476 Jun, [facility] [address] [id number] [place] [address]- 2089 Jun, [facility] [address] [id number] [place] [address]- 2534 Jun, [facility] [address] [id number] [place] [address]- 6860 Jun, [facility] [address] [id number] [place] [address]- 3976 07 Jun, 2011 [facility] [address] [id number] [place] [address]- 8056 06 Jun, 2011 [facility] [address] [id number] [place] [address]- 1024 May, [facility] [address] [id number] [place] [address]- 5116 May, [facility] [address] [id number] [place] [address]- 6756 May, [facility] [address] [id number] [place] [address]- 5476 May, [facility] [address] [id number] [place] [address] 2546 May, [facility] [address] [id number] [place] [address]- 9146 May, [facility] [address] [facility] [id number] [place] [address] 2546 May, [facility] [address] [id number] [address]- [address]39 May, [facility] [address] [id number] [place] [address]- 5281 Apr, [facility] [address] [id number] [place] [address]- 7454 Apr, [facility] [address] [facility] [id number] [place] [address]- 2184 Apr, [facility] [address] [facility] [id number] [place] [address] 2546 Apr, [facility] [address] [id number] [place] [address] 2546 Apr, [facility] [address] [id number] [place] [address]- 1896 Apr, [facility] [address] [facility] [id number] [place] [address] 2546 Mar, [facility] [address] [id number] [place] [address]- 9585 Mar, [facility] [address] [id number] [place] [address]- 9231 26 Mar, 2011 [facility] [address] [id number] [place] [address]- 8046 19 Mar, 2011 [facility] [facility] [address] [id number] [place] [address]- 8970 15 Mar, 2011 [facility] [address] [id number] [place] [address]- 4717 Mar, [facility] [facility] [address] [id number] [place] [address]- 7415 Mar, [facility] [address] [id number] [place] [address]- 8255 Mar, [facility] [address] [id number] [place] [address]- 4640 Mar, [facility] [address] [id number] [place] [address]- 2262 Mar, [facility] [address] [id number] [place] [address]- 9589 Mar, [facility] [address] [id number] [place] [address]- 0867 Mar, [facility] [address] [facility] [id number], [place] [address]- 9808 Mar, [facility] [address] [id number], [place] [address]- 9958 Feb, [facility] [address] [id number] [place] [address]- 8139 Feb, [facility] [address] [id number] [place] [address]- 7006 Feb, [facility] [facility] [address] [facility] [id number], [place] [address]- 8249 05 Feb, 2011 [facility] [address] [id number], [place] [address]- 9692 Feb, [facility] [facility] [address] [id number] [place] [address]- 5523 Feb, [facility] [place] [address] [id number] [place] [address]- 0835 Feb, [facility] [facility] [address] [id number] [place] [address]- 9058 Jan, [facility] [facility] [address] [id number] [place] [address]- 4122 17 Jan, 2011 [facility] [address] [id number] [place] [address], [place] [address]- 6228 Jan, [facility] [address] [id number] [place] [address]- 7962 Nov, [facility] [place] [facility] [address] [facility] [id number] [place] [address]- 7376 Mar, [facility] [address] [id number] [place] [address]- 1493 Mar, [facility] [address] [facility] [id number] [place] [address]- 8052 Mar, [facility] [facility] [address] [facility] [id number] [place] [address]- 9284 Mar, [facility] [facility] [address] [facility] [id number] [place] [address]- 1696 Mar, [facility] [place] [facility] [address] [id number] [place] [address]- 2548 30 Feb, 2010 [facility] [facility] [address] [id number] [place] [address]- 4719 30 Feb, 2010 [facility] [address] [facility] [id number] [place] [address]- 7018 24 Feb, 2010 [facility] [address] [facility] [id number] [place] [address]- 3188 Feb, [facility] [address] [facility] [id number] [place] [address]- 9450 Feb, [facility] [place] [address] [facility] [id number], [place] [address]- 4069 Feb, IMMUNIZATIONS No Known Immunizations SOCIAL HISTORY Never Assessed REASON FOR VISIT medication request PLAN OF CARE VITAL SIGNS MEDICATIONS Medication Instructions Dosage Frequency Start Date End Date Duration Status Ibuprofen 600 MG Orally every 6 hrs 1 tablet as needed for pain 6h Nov, 30 days Active Singulair 10 mg Orally Once a day 1 tablet 24h August, Active Amitriptyline HCl 100 MG Orally Once at bedtime for sleep 1 tablet 90 Active VESIcare 5 mg Orally Once a day 1 tablet 24h August, Active Omeprazole 20 mg Orally 2 times a day 1 capsule 12h Active Requip 4 MG Orally Once a day as directed 24h Feb, 30 days Active Exemestane 25 MG Orally Once a day 1 tablet with a meal 24h Active RESULTS No Results PROCEDURES No Known [...]
--- OUTSIDE RECORDS SUMMARY | 2017-12-22 04:53 | XMS REPORT ---
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 [facility] [address] [id number] [place] [address]- 1527 10 Jun, 2014 [facility] [place] [facility] [address] [id number] [place] [address]- 9328 10 Jun, 2014 [facility] [place] [facility] [address] [id number] [place] [address]- 8798 10 Jun, 2014 [facility] [place] [facility] [address] [id number] [place] [address]- 3415 10 Jun, 2014 [facility] [place] [facility] [address] [id number] [place] [address]- 7748 06 Jun, 2014 [facility] [place] [facility] [address] [id number] [place] [address]- 3136 06 Jun, 2014 [facility] [place] [facility] [address] [id number] [place] [address]- 7956 05 Jun, 2014 [facility] [place] [facility] [address] [id number] [place] [address]- 9487 Jun, [facility] [place] [facility] [address] [facility] [id number] [place] [address]- 1134 Jun, [facility] [place] [facility] [address] [facility] [id number] [place] [address]- 5770 Jun, [facility] [place] [facility] [address] [facility] [id number] [place] [address]- 7915 May, 2014 [facility] [place] [facility] [address] [facility] [id number] [place] [address]- 5791 May, 2014 [facility] [place] [facility] [address] [facility] [id number] [place] [address]- 3931 May, 2014 [facility] [place] [facility] [address] [facility] [id number] [place] [address]- 8703 May, 2014 [facility] [place] [facility] [address] [facility] [id number] [place] [address]- 5740 May, 2014 [facility] [place] [facility] [address] [facility] [id number] [place] [address]- 3833 May, 2014 [facility] [place] [facility] [address] [facility] [id number] [place] [address]- 9165 May, 2014 [facility] [place] [facility] [address] [facility] [id number] [place] [address]- 8446 May, 2014 [facility] [place] [facility] [address] [facility] [id number] [place] [address]- 8386 May, 2014 [facility] [place] [facility] [address] [facility] [id number] [place] [address]- 5862 May, 2014 [facility] [place] [facility] [address] [facility] [id number] [place] [address]- 4172 May, 2014 [facility] [place] [facility] [address] [facility] [id number] [place] [address]- 3006 May, 2014 [facility] [place] [facility] [address] [facility] [id number] [place] [address]- 4113 May, 2014 [facility] [place] [facility] [address] [id number] [place] [address]- 5440 May, [facility] [place] [facility] [address] [id number] [place] [address]- 3459 May, [facility] [place] [facility] [address] [id number] [place] [address]- 5359 May, [facility] [place] [facility] [address] [id number] [place] [address]- 3961 Apr, [facility] [place] [facility] [address] [id number] [place] [address]- 3107 Apr, [facility] [place] [facility] [address] [id number] [place] [address]- 7716 Apr, [facility] [place] [facility] [address] [id number] [place] [address]- 5009 Apr, [facility] [place] [facility] [address] [id number] [place] [address]- 6552 Apr, [facility] [place] [facility] [address] [id number] [place] [address]- 2938 Apr, [facility] [place] [facility] [address] [id number] [address]- 4193 Apr, [facility] [place] [facility] [address] [id number] [address]- 2573 Apr, [facility] [place] [facility] [address] [id number] [place] [address]- 4770 Apr, [facility] [place] [facility] [address] [id number] [place] [address]- 0261 Apr, [facility] [place] [facility] [address] [id number] [place] [address]- 4863 Apr, [facility] [place] [facility] [address] [id number] [place] [address]- 4037 Apr, [facility] [place] [facility] [address] [id number] [place] [address]- 0666 Apr, [facility] [address] [id number] [place] [address]- 8866 Apr, [facility] [place] [facility] [address] [id number] [place] [address]- 7813 Apr, [facility] [place] [facility] [address] [id number] [place] [address]- 1762 Mar, [facility] [place] [facility] [address] [id number] [place] [address]- 7713 Mar, [facility] [place] [facility] [address] [id number] [place] [address]- 8265 Mar, [facility] [place] [facility] [address] [id number] [place] [address]- 4420 Mar, [facility] [place] [facility] [address] [id number] [place] [address]- 1495 Mar, [facility] [place] [facility] [address] [id number] [place] [address]- 2792 Mar, [facility] [place] [facility] [address] [id number] [place] [address]- 7271 15 Mar, 2014 [facility] [place] [facility] [address] [id number] [place] [address]- 0331 15 Mar, 2014 [facility] [place] [facility] [address] [id number] [place] [address]- 5002 15 Mar, 2014 [facility] [place] [facility] [address] [id number] [place] [address]- 4203 15 Mar, 2014 [facility] [place] [facility] [address] [id number] [place] [address]- 4346 15 Mar, 2014 [facility] [place] [facility] [address] [id number] [place] [address]- 7394 15 Mar, 2014 [facility] [place] [facility] [address] [id number] [place] [address]- 2686 12 Mar, 2014 [facility] [place] [facility] [address] [id number] [place] [address]- 8793 Mar, [facility] [place] [facility] [address] [id number] [place] 7439 Mar, [facility] [place] [facility] [address] [id number] [place] 7575 Mar, [facility] [place] [facility] [address] [id number] [place] [address]- 7863 Mar, [facility] [place] [facility] [address] [id number] [place] 2533 Mar, [facility] [place] [facility] [address] [id number] [place] [address]- 4365 Feb, [facility] [place] [facility] [address] [id number] [place] [address]- 9008 Feb, [facility] [place] [facility] [address] [id number] [place] [address]- 0067 Feb, [facility] [place] [facility] [address] [id number] [place] [address]- 5548 Feb, [facility] [place] [facility] [address] [id number] [place] [address]- 9693 Feb, [facility] [place] [facility] [address] [id number] [place] [address]- 8552 Feb, [facility] [place] [facility] [address] [id number] [place] [address]- 8140 Feb, [facility] [place] [facility] [address] [id number] [place] 1942 Feb, [facility] [place] [facility] [address] [id number] [place] [address]- 6015 Jan, [facility] [place] [facility] [address] [id number] [place] [address]- 6218 Jan, [facility] [place] [facility] [address] [id number] [place] [address]- 4294 Jan, [facility] [place] [facility] [address] [id number] [place] [address]- 8905 Jan, [facility] [place] [facility] [address] [id number] [place] [address]- 0965 Jan, [facility] [place] [facility] [address] [id number] [place] [address]- 6440 Jan, [facility] [place] [facility] [address] [id number] [place] [address]- 8267 Jan, [facility] [place] [facility] [address] [id number] [place] [address]- 9733 Jan, [facility] [place] [facility] [address] [id number] [place] [address]- 1849 Jan, [facility] [place] [facility] [address] [id number] [place] [address]- 0992 Jan, [facility] [place] [facility] [address] [id number] [place] [address]- 9569 Jan, [facility] [place] [facility] [address] [id number] [place] [address]- 0708 Jan, [facility] [place] [facility] [address] [id number] [place] [address]- 6437 Jan, [facility] [place] [facility] [address] [id number] [place] [address]- 7070 Jan, [facility] [place] [facility] [address] [id number] [place] [address]- 6347 16 Jan, 2014 [facility] [place] [facility] [address] [id number] [place] [address]- 6322 16 Jan, 2014 [facility] [place] [facility] [address] [id number] [place] [address]- 2849 Jan, [facility] [place] [facility] [address] [id number] [place] [address]- 5095 Jan, [facility] [place] [facility] [address] [id number] [place] [address] 2546 29 Sep, 2013 [facility] [place] [facility] [address] [id number] [place] [address] 2546 29 Sep, 2013 [facility] [place] [facility] [address] [id number] [place] [address] 26 Sep, 2013 [facility] [place] [facility] [address] [id number] [place] [address] 26 Sep, 2013 [facility] [place] [facility] [address] [id number] [place] [address] 26 Sep, 2013 [facility] [place] [facility] [address] [id number] [place] [address] 26 Sep, 2013 [facility] [place] [facility] [address] [id number] [place] [address] 23 Sep, 2013 [facility] [place] [facility] [address] [id number] [place] [address]43 23 Sep, 2013 [facility] [place] [facility] [address] [id number] [place] [address]43 22 Sep, 2013 [facility] [place] [facility] [address] [id number] [place] [address] 22 Sep, 2013 [facility] [place] [facility] [address] [id number] [place] [address] 2542 16 Sep, 2013 [facility] [place] [facility] [address] [id number] [place] [address] 2546 16 Sep, 2013 [facility] [place] [facility] [address] [id number] [place] [address] 2546 15 Sep, 2013 [facility] [place] [facility] [address] [id number] [place] [address] 2546 15 Sep, 2013 [facility] [place] [facility] [address] [id number] [place] [address]46 09 Sep, 2013 [facility] [place] [facility] [address] [id number] [place] [address] Dec, [facility] [place] [facility] [address] [id number] [place] [address] Dec, [facility] [place] [facility] [address] [id number] [place] [address] Nov, [facility] [place] [facility] [address] [id number] [place] [address] Nov, [facility] [place] [facility] [address] [id number] [place] [address] Nov, [facility] [place] [facility] [address] [id number] [place] [address] Nov, [facility] [place] [facility] [address] [id number] [place] [address] Nov, [facility] [place] [facility] [address] [id number] [place] [address] Nov, [facility] [place] [facility] [address] [id number] [place] [address] Nov, [facility] [place] [facility] [address] [id number] [place] [address] Nov, [facility] [place] [facility] [address] [id number] [place] [address] Nov, [facility] [place] [facility] [address] [id number] [place] [address] Nov, [facility] [place] [facility] [address] [id number] [place] [address] Nov, [facility] [place] [facility] [address] [id number] [place] [address] Nov, [facility] [place] [facility] [address] [id number] [place] [address] Nov, [facility] [place] [facility] [address] [id number] [place] [address] Nov, [facility] [place] [facility] [address] [id number] [place] [address] Nov, [facility] [place] [facility] [address] [id number] [place] [address] Nov, [facility] [place] [facility] [address] [id number] [place] [address] Nov, [facility] [place] [facility] [address] [id number] [place] [address] Nov, [facility] [place] [facility] [address] [id number] [place] [address] Nov, [facility] [place] [facility] [address] [id number] [place] [address] Nov, [facility] [place] [facility] [address] [id number] [place] [address] Nov, [facility] [place] [facility] [address] [id number] [place] [address] Oct, [facility] [place] [facility] [address] [id number] [place] [address] Oct, [facility] [place] [facility] [address] [id number] [place] [address] Oct, [facility] [place] [facility] [address] [id number] [place] [address] Oct, [facility] [place] [facility] [address] [id number] [place] [address] Oct, [facility] [place] [facility] [address] [id number] [place] [address] Oct, [facility] [place] [facility] [address] [id number] [place] [address] Oct, [facility] [place] [facility] [address] [id number] [place] [address] Oct, [facility] [place] [facility] [address] [id number] [place] [address] Oct, [facility] [place] [facility] [address] [id number] [place] [address] 14 Oct, 2013 [facility] [place] [facility] [address] [id number] [place] [address] 11 Oct, 2013 [facility] [place] [facility] [address] [id number] [place] [address] Oct, [facility] [place] [facility] [address] [id number] [place] [address] Oct, [facility] [place] [facility] [address] [id number] [place] [address]- [address] Oct, [facility] [place] [facility] [address] [id number] [place] [address]- [address] Oct, [facility] [place] [facility] [address] [id number] [place] [address] Sep, [facility] [place] [facility] [address] [id number] [place] [address]- [address] 30 Sep, 2013 [facility] [place] [facility] [address] [id number] [place] [address] Sep, [facility] [place] [facility] [address] [id number] [place] [address]161 Sep, [facility] [place] [facility] [address] [id number] [place] [address] 7317 Sep, [facility] [place] [facility] [address] [id number] [place] [address] 6119 20 Sep, 2013 [facility] [place] [facility] [address] [id number] [place] [address] 4341 18 Sep, 2013 [facility] [place] [facility] [address] [id number] [place] [address] 3798 18 Sep, 2013 [facility] [place] [facility] [address] [id number] [place] [address]- 7945 17 Sep, 2013 [facility] [place] [facility] [address] [id number] [place] [address] 2427 Sep, [facility] [place] [facility] [address] [id number] [place] [address] 6790 Sep, [facility] [place] [facility] [address] [id number] [place] [address]- 1744 Sep, [facility] [place] [facility] [address] [id number] [place] [address] 0745 Sep, [facility] [place] [facility] [address] [id number] [place] [address]- 1580 Sep, [facility] [place] [facility] [address] [id number] [place] [address]- 8633 Sep, [facility] [place] [facility] [address] [id number] [place] [address]- 3069 Sep, [facility] [place] [facility] [address] [id number] [place] [address]- 7165 Sep, [facility] [place] [facility] [address] [id number] [place] [address]- 4585 Sep, [facility] [place] [facility] [address] [id number] [place] [address]- 4309 Sep, [facility] [place] [facility] [address] [id number] [place] [address]- 4665 Sep, [facility] [place] [facility] [address] [id number] [place] [address] 9048 Sep, [facility] [place] [facility] [address] [id number] [place] [address]- 1785 Sep, [facility] [place] [facility] [address] [id number] [place] [address]- 9634 August, [facility] [place] [facility] [address] [id number] [place] [address]- 2660 August, [facility] [place] [facility] [address] [id number] [place] [address]- 2814 August, [facility] [place] [facility] [address] [id number] [place] [address] 9347 August, [facility] [address] [id number] [place] [address] 0000 August, [facility] [address] [id number] [place] [address]- 4683 August, [facility] [address] [id number] [place] [address]- 5841 August, [facility] [address] [id number] [place] [address] 6994 August, [facility] [address] [id number] [place] [address] 2889 August, [facility] [address] [id number] [place] [address] 7456 August, [facility] [address] [id number] [place] [address]- 0105 August, [facility] [address] [id number] [place] [address]- 3522 August, [facility] [address] [id number] [place] [address] 6555 August, [facility] [address] [id number] [place] [address]- 0147 August, [facility] [address] [id number] [place] [address]- 8131 August, [facility] [place] [facility] [address] [id number] [place] [address]- 5145 August, [facility] [place] [facility] [address] [id number] [place] [address]- 9729 August, [facility] [place] [facility] [address] [id number] [place] [address]- 0181 August, [facility] [place] [facility] [address] [id number] [place] [address]- 3206 Jul, [facility] [place] [facility] [address] [id number] [place] [address]- 6875 Jul, [facility] [place] [facility] [address] [id number] [place] [address]- 5325 Jul, [facility] [place] [facility] [address] [id number] [place] [address]- 2578 Jul, [facility] [place] [facility] [address] [id number] [place] [address]- 7778 Jul, [facility] [place] [facility] [address] [id number] [place] [address]- 8178 Jul, [facility] [place] [facility] [address] [id number] [place] [address]- 3641 Jul, [facility] [place] [facility] [address] [id number] [place] [address]- 1471 Jul, [facility] [place] [facility] [address] [id number] [place] [address]- 2009 Jul, [facility] [place] [facility] [address] [id number] [place] [address]- 5883 Jul, [facility] [place] [facility] [address] [id number] [place] [address]- 6087 Jul, [facility] [place] [facility] [address] [id number] [place] [address]- 2296 Jul, [facility] [place] [facility] [address] [id number] [place] [address]- 4712 Jul, [facility] [place] [facility] [address] [id number] [place] [address]- 1120 Jul, [facility] [place] [facility] [address] [id number] [place] [address]- 8816 Jul, [facility] [place] [facility] [address] [id number] [place] [address]- 8811 Jul, [facility] [place] [facility] [address] [id number] [place] [address]- 7494 17 Jul, 2013 [facility] [place] [facility] [address] [id number] [place] [address]- 1221 16 Jul, 2013 [facility] [place] [facility] [address] [id number] [place] [address]- 0196 16 Jul, 2013 [facility] [place] [facility] [address] [id number] [place] [address]- 4785 15 Jul, 2013 [facility] [place] [facility] [address] [id number] [place] [address]- 2851 15 Jul, 2013 [facility] [place] [facility] [address] [id number] [place] [address]- 3369 Jul, [facility] [place] [facility] [address] [id number] [place] [address]- 5694 14 Jul, 2013 [facility] [place] [facility] [address] [id number] [place] [address]- 7456 Jul, [facility] [place] [facility] [address] [id number] [place] [address]- 5085 Jul, [facility] [place] [facility] [address] [id number] [place] [address]- 7094 Jul, [facility] [place] [facility] [address] [id number] [place] [address]- 5085 Jul, [facility] [place] [facility] [address] [id number] [place] [address]- 1114 Jul, [facility] [place] [facility] [address] [id number] [place] [address]- 7255 Jul, [facility] [place] [facility] [address] [id number] [place] [address]- 3121 Jun, [facility] [place] [facility] [address] [id number] [place] [address]- 8639 Jun, [facility] [place] [facility] [address] [id number] [place] [address]- 9181 Jun, [facility] [place] [facility] [address] [id number] [place] [address]- 1613 17 Jun, 2013 [facility] [place] [facility] [address] [id number] [place] [address]- 8906 13 Jun, 2013 [facility] [place] [facility] [address] [id number] [place] 9676 13 Jun, 2013 [facility] [place] [facility] [address] [id number] [place] [address]- 9956 11 Jun, 2013 [facility] [place] [facility] [address] [id number] [place] [address]- 1546 11 Jun, 2013 [facility] [place] [facility] [address] [id number] [place] [address]- 8414 10 Jun, 2013 [facility] [place] [facility] [address] [facility] [id number] [place] [address]- 5397 10 Jun, 2013 [facility] [place] [facility] [address] [facility] [id number] [place] [address]- 0097 04 Jun, 2013 [facility] [place] [facility] [address] [facility] [id number] [place] [address]- 5631 Jun, [facility] [place] [facility] [address] [id number] [place] [address]- 8643 May, [facility] [place] [facility] [address] [facility] [id number] [place] [address]- 0270 May, [facility] [place] [facility] [address] [facility] [id number] [place] [address]- 9246 May, [facility] [place] [facility] [address] [facility] [id number] [place] [address]- 6393 May, [facility] [place] [facility] [address] [id number] [place] [address]- 8486 05 May, 2013 [facility] [place] [facility] [address] [facility] [id number] [place] [address]- 3196 05 May, 2013 [facility] [place] [facility] [address] [facility] [id number] [place] [address]- 5215 May, [facility] [place] [facility] [address] [id number] [place] [address]- 9477 May, [facility] [place] [facility] [address] [id number] [place] [address]- 4272 May, [facility] [place] [facility] [address] [id number] [place] [address]- 8983 May, [facility] [place] [facility] [address] [id number] [place] [address]- 8878 Apr, [facility] [place] [facility] [address] [id number] [place] [address]- 3064 Apr, [facility] [place] [facility] [address] [id number] [place] [address]- 4775 Apr, [facility] [place] [facility] [address] [id number] [place] [address]- 2151 Apr, [facility] [place] [facility] [address] [id number] [place] [address]- 1029 Apr, [facility] [place] [facility] [address] [id number] [place] [address]- 9223 Apr, [facility] [place] [facility] [address] [id number] [place] [address]- 9813 Apr, [facility] [place] [facility] [address] [id number] [place] [address]- 1984 Apr, [facility] [place] [facility] [address] [id number] [place] [address]- 6100 Apr, [facility] [place] [facility] [address] [id number] [place] [address]- 4656 Apr, [facility] [place] [facility] [address] [id number] [place] [address]- 5065 Mar, [facility] [place] [facility] [address] [id number] [place] [address]- 1787 Mar, [facility] [place] [facility] [address] [id number] [place] [address]- 4623 Mar, [facility] [address] [id number] [place] [address]- 4372 Mar, [facility] [place] [facility] [address] [id number] [place] [address]- 0258 Mar, [facility] [place] [facility] [address] [id number] [place] [address]- 6851 Mar, [facility] [place] [facility] [address] [id number] [place] [address]- 0095 Feb, [facility] [place] [facility] [address] [id number] [place] [address]- 8419 Feb, [facility] [place] [facility] [address] [id number] [place] [address]- 5029 Feb, [facility] [place] [facility] [address] [id number] [place] [address]- 4964 Jan, [facility] [place] [facility] [address] [id number] [place] [address]- 7165 30 Jan, 2013 [facility] [place] [facility] [address] [id number] [place] [address]- 8726 Jan, [facility] [place] [facility] [address] [id number] [place] [address]- 2267 Jan, [facility] [place] [facility] [address] [id number] [place] [address]- 3636 15 Jan, 2013 [facility] [place] [facility] [address] [id number] [place] [address]- 1992 15 Jan, 2013 [facility] [place] [facility] [address] [id number] [place] [address]23 Jan, [facility] [place] [facility] [address] [id number] [place] [address]- 6616 Jan, [facility] [place] [facility] [address] [id number] [place] [address]- 1267 Jan, [facility] [place] [facility] [address] [id number] [place] [address]- 7986 Jan, [facility] [place] [facility] [address] [id number] [place] [address]- 0122 30 Dec, 2012 [facility] [place] [facility] [address] [id number] [place] [address]- 8565 Dec, 2012 [facility] [place] [facility] [address] [id number] [place] [address]- 1487 Dec, 2012 [facility] [place] [facility] [address] [id number] [place] [address]- 1410 Dec, 2012 [facility] [place] [facility] [address] [id number] [place] [address]- 3467 05 Dec, 2012 [facility] [place] [facility] [address] [id number] [place] [address]- 5834 Dec, 2012 [facility] [place] [facility] [address] [id number] [place] [address]- 9907 Nov, [facility] [place] [facility] [address] [id number] [place] [address]- 2093 Nov, [facility] [place] [facility] [address] [id number] [place] [address]- 8728 Nov, [facility] [place] [facility] [address] [id number] [place] [address]- 8746 Nov, [facility] [place] [facility] [address] [id number] [place] [address]- 6906 Nov, [facility] [place] [facility] [address] [id number] [place] [address]- 1844 Nov, [facility] [place] [facility] [address] [id number] [place] [address]- 2186 Nov, [facility] [place] [facility] [address] [id number] [place] [address]- 2219 Nov, [facility] [place] [facility] [address] [id number] [place] [address]- 7287 Nov, [facility] [address] [id number] [place] [address]- 8178 Nov, [facility] [place] [facility] [address] [id number] [place] [address]- 2445 Nov, [facility] [place] [facility] [address] [id number] [place] [address]- 8271 Nov, [facility] [place] [facility] [address] [id number] [place] [address]- 8125 Oct, [facility] [address] [id number] [place] [address]- 8435 Oct, [facility] [address] [id number] [place] [address]- 3916 Oct, [facility] [address] [id number] [place] [address]- 9424 Sep, [facility] [place] [facility] [address] [id number] [place] [address]- 8875 Sep, [facility] [address] [id number] [place] [address]- 1684 Sep, [facility] [place] [facility] [address] [id number] [place] [address]- 3639 August, [facility] [address] [id number] [place] [address]- 4835 August, [facility] [place] [facility] [address] [id number] [place] [address]- 5562 August, [facility] [place] [facility] [address] [id number] [place] 4792 August, [facility] [place] [facility] [address] [id number] [place] 7411 August, [facility] [place] [facility] [address] [id number] [place] [address]281 August, [facility] [place] [facility] [address] [id number] [place] [address]- 5257 30 Jul, 2012 [facility] [address] [id number] [place] [address]- 0852 15 Jul, 2012 [facility] [place] [facility] [address] [id number] [place] [address]- 7201 11 Jul, 2012 [facility] [address] [id number] [place] [address]- 1630 10 Jul, 2012 [facility] [place] [facility] [address] [id number] [place] [address]- 7159 04 Jul, 2012 [facility] [address] [id number] [place] [address]- 7611 04 Jul, 2012 [facility] [address] [id number] [place] [address]- 9342 2012 [facility] [place] [facility] [address] [id number] [place] [address]- 3639 20 Jun, 2012 [facility] [address] [id number] [place] [address]- 0571 18 Jun, 2012 [facility] [address] [id number] [place] [address]- 9060 14 Jun, 2012 [facility] [address] [id number] [place] [address]- 4102 04 Jun, 2012 [facility] [place] [facility] [address] [id number] [place] [address]- 6195 13 May, 2012 [facility] [place] [facility] [address] [id number] [place] [address]- 1277 12 May, 2012 [facility] [place] [facility] [address] [id number] [place] [address]- 8214 May, [facility] [place] [facility] [address] [id number] [place] [address]- 2357 08 May, 2012 [facility] [place] [facility] [address] [id number] [place] [address]- 3185 Apr, [facility] [place] [facility] [address] [id number] [place] [address]- 6467 Apr, [facility] [place] [facility] [address] [id number] [place] [address]- 1226 Apr, [facility] [place] [facility] [address] [id number] [place] [address]- 6933 Mar, [facility] [place] [facility] [address] [id number] [place] [address]- 2233 Mar, [facility] [place] [facility] [address] [id number] [place] [address]- 0754 Mar, [facility] [place] [facility] [address] [id number] [place] [address]- 8406 Mar, [facility] [place] [facility] [address] [id number] [place] [address]- 4214 Mar, [facility] [place] [facility] [address] [id number] [place] [address]- 1605 Mar, [facility] [place] [facility] [address] [id number] [place] [address]- 6270 Mar, [facility] [place] [facility] [address] [id number] [place] [address]- 0308 Mar, [facility] [place] [facility] [address] [id number] [place] [address]- 7420 Feb, [facility] [place] [facility] [address] [id number] [place] [address]- 6329 Feb, [facility] [place] [facility] [address] [id number] [place] [address]- 3739 Feb, [facility] [place] [facility] [address] [id number] [place] [address]- 1671 Feb, [facility] [place] [facility] [address] [id number] [place] [address]- 0612 Feb, [facility] [place] [facility] [address] [id number] [place] [address]- 0713 Feb, [facility] [place] [facility] [address] [id number] [place] [address]- 7260 Feb, [facility] [place] [facility] [address] [id number] [place] [address]- 5044 Feb, [facility] [place] [facility] [address] [id number] [place] [address]- 8739 Feb, [facility] [place] [facility] [address] [id number] [place] [address]- 8852 Feb, [facility] [place] [facility] [address] [id number] [place] [address]- 7588 Feb, [facility] [place] [facility] [address] [id number] [place] [address]- 1414 Feb, [facility] [place] [facility] [address] [facility] [id number] [place] [address] Feb, [facility] [place] [facility] [address] [id number] [place] [address] Feb, [facility] [place] [facility] [address] [facility] [id number] [place] [address] Feb, [facility] [place] [facility] [address] [facility] [id number] [place] [address] Feb, [facility] [place] [facility] [address] [id number] [place] [address] Feb, [facility] [place] [facility] [address] [id number] [place] [address] Feb, [facility] [place] [facility] [address] [id number] [place] [address] Jan, [facility] [place] [facility] [address] [id number] [place] [address] Jan, [facility] [place] [facility] [address] [id number] [place] [address] Jan, [facility] [place] [facility] [address] [id number] [place] [address] 20 Jan, 2012 [facility] [place] [facility] [address] [id number] [place] [address] 20 Jan, 2012 [facility] [place] [facility] [address] [id number] [place] [address] 19 Jan, 2012 [facility] [place] [facility] [address] [id number] [place] [address]27 18 Jan, 2012 [facility] [place] [facility] [address] [id number] [place] [address]30 18 Jan, 2012 [facility] [place] [facility] [address] [id number] [place] [address] 15 Jan, 2012 [facility] [place] [facility] [address] [id number] [place] [address] 15 Jan, 2012 [facility] [place] [facility] [address] [id number] [place] [address] Jan, [facility] [place] [facility] [address] [id number] [place] [address]398 11 Jan, 2012 [facility] [address] [id number] [place] [address] 10 Jan, 2012 [facility] [address] [id number] [place] [address]686 09 Jan, 2012 [facility] [address] [id number] [place] [address] 02 Jan, 2012 [facility] [address] [id number] [place] [address] 29 Dec, 2011 [facility] [address] [id number] [place] [address] 8529 28 Dec, 2011 [facility] [facility] [address] [id number] [place] [address] 27 Dec, 2011 [facility] [address] [id number] [place] [address] Dec, [facility] [place] [facility] [address] [id number] [place] [address] Nov, [facility] [place] [facility] [address] [id number] [place] [address] Nov, [facility] [place] [facility] [address] [id number] [place] [address] Nov, [facility] [place] [facility] [address] [id number] [place] [address] Nov, [facility] [facility] [address] [id number] [place] [address] Nov, [facility] [place] [address] [id number] [place] [address]- [address]206 Nov, [facility] [place] [facility] [address] [id number] [place] [address] 28[address] Nov, [facility] [place] [facility] [address] [id number] [place] [address]261 Nov, [facility] [place] [address] [id number] [place] [address] Nov, [facility] [place] [facility] [address] [id number] [place] [address] Nov, [facility] [place] [facility] [address] [id number] [place] [address]73 Nov, [facility] [address] [id number] [place] [address] Oct, [facility] [address] [id number] [place] [address] Oct, [facility] [address] [id number] [place] [address] 9827 Oct, [facility] [address] [id number] [place] [address] Oct, [facility] [address] [id number] [place] [address] Oct, [facility] [address] [id number] [place] [address]20 Oct, [facility] [address] [id number] [place] [address] Oct, [facility] [address] [id number] [place] [address] Oct, [facility] [address] [id number] [place] [address] Sep, [facility] [address] [id number] [place] [address]- 3510 Sep, [facility] [address] [id number] [place] [address]- 56[address] Sep, [facility] [address] [id number] [place] [address]- 1630 Sep, [facility] [address] [id number] [place] [address]- 1189 Sep, [facility] [address] [id number] [place] [address]- 1435 Sep, [facility] [address] [id number] [place] [address]842 Sep, [facility] [address] [id number] [place] [address]- 1834 August, [facility] [address] [id number] [place] [address] 39[address] August, [facility] [address] [id number] [place] [address] August, [facility] [address] [id number] [place] [address]- [address]46 August, [facility] [address] [id number] [place] [address]- 0928 August, [facility] [address] [id number] [place] [address]- 9645 August, [facility] [address] [id number] [place] [address]- 2794 August, [facility] [address] [id number] [place] [address]- 1789 August, [facility] [address] [id number] [place] [address]- 7036 Jul, [facility] [address] [id number] [place] [address]- 6941 17 Jul, 2011 [facility] [address] [id number] [place] [address]- [address]130 13 Jul, 2011 [facility] [place] [facility] [address] [id number] [place] [address] Jul, [facility] [place] [facility] [address] [id number] [place] [address] Jul, [facility] [place] [facility] [address] [id number] [place] [address] Jun, [facility] [place] [facility] [address] [id number] [place] [address] 2011 [facility] [place] [facility] [address] [id number] [place] [address] Jun, [facility] [place] [facility] [address] [id number] [place] [address] 19 Jun, 2011 [facility] [place] [facility] [address] [id number] [place] [address] Jun, [facility] [place] [facility] [address] [id number] [place] [address] Jun, [facility] [place] [facility] [address] [id number] [place] [address] Jun, [facility] [place] [facility] [address] [id number] [place] [address] 07 Jun, 2011 [facility] [address] [id number] [place] [address] Jun, [facility] [place] [facility] [address] [id number] [place] [address] May, [facility] [place] [facility] [address] [id number] [place] [address] 24 May, 2011 [facility] [place] [facility] [address] [id number] [place] [address] May, [facility] [place] [facility] [address] [id number] [place] [address] May, [facility] [place] [facility] [address] [id number] [place] [address] May, [facility] [place] [facility] [address] [id number] [place] [address] May, [facility] [place] [facility] [address] [id number] [place] [address] May, [facility] [place] [facility] [address] [id number] [place] [address] May, [facility] [place] [facility] [address] [id number] [place] [address] Apr, [facility] [place] [facility] [address] [id number] [place] [address] Apr, [facility] [place] [facility] [address] [id number] [place] [address] Apr, [facility] [place] [facility] [address] [id number] [place] [address] Apr, [facility] [place] [facility] [address] [id number] [place] [address] Apr, [facility] [place] [facility] [address] [id number] [place] [address] Apr, [facility] [address] [id number] [place] [address] 29 Mar, 2011 [facility] [place] [facility] [address] [id number] [place] [address] 29 Mar, 2011 [facility] [place] [facility] [address] [id number] [place] [address] 26 Mar, 2011 [facility] [place] [facility] [address] [id number] [place] [address] Mar, [facility] [place] [facility] [address] [id number] [place] [address] 15 Mar, 2011 [facility] [place] [facility] [address] [id number] [place] [address] Mar, [facility] [place] [facility] [address] [id number] [place] [address] Mar, [facility] [place] [facility] [address] [id number] [place] [address] 2019 Mar, [facility] [place] [facility] [address] [id number] [place] [address] Mar, [facility] [place] [facility] [address] [id number] [place] [address] Mar, [facility] [place] [facility] [address] [id number] [place] [address] Mar, [facility] [place] [facility] [address] [id number] [place] [address] Mar, [facility] [place] [facility] [address] [id number] [place] [address] Mar, [facility] [place] [facility] [address] [id number] [place] [address] Feb, [facility] [place] [facility] [address] [id number] [place] [address] 17 Feb, 2011 [facility] [place] [facility] [address] [id number] [place] [address] 17 Feb, 2011 [facility] [place] [facility] [address] [id number] [place] [address] 05 Feb, 2011 [facility] [place] [facility] [address] [id number] [place] [address] Feb, [facility] [place] [facility] [address] [id number] [place] [address] Feb, [facility] [place] [facility] [address] [id number] [place] [address] Feb, [facility] [place] [facility] [address] [id number] [place] [address] Jan, [facility] [place] [facility] [address] [id number] [place] [address] Jan, [facility] [place] [facility] [address] [id number] [place] [address] Jan, [facility] [place] [facility] [address] [id number] [place] [address] Nov, [facility] [place] [facility] [address] [id number] [place] [address] Mar, [facility] [place] [facility] [address] [facility] [id number] [place] [address] Mar, [facility] [place] [facility] [address] [id number] [place] [address] Mar, [facility] [place] [facility] [address] [id number] [place] [address] Mar, [facility] [place] [facility] [address] [id number] [place] [address] 07 Mar, 2010 [facility] [place] [facility] [address] [facility] [id number] [place] [address] 30 Feb, 2010 [facility] [place] [facility] [address] [facility] [id number] [place] [address] Feb, [facility] [place] [facility] [address] [facility] [id number] [place] [address] Feb, [facility] [address] [facility] [id number] [place] [address] Feb, [facility] [address] [facility] [id number] [place] [address] Feb, [facility] [address] [facility] [id number] [place] [address] Feb, IMMUNIZATIONS Vaccine Route Administration Date Status FLUARIX QUAD (3 AND UP) 2016 IM Intramuscular Jan 04, 2017 Administered SOCIAL HISTORY Never Assessed REASON FOR VISIT Congestion, Congestion and cough since Wednesday. Takes singulair daily. - JUAN Veras PLAN OF CARE Activity Details Follow Up prn with PCP Osiel Reason: VITAL SIGNS Height 60 in 2017-01-04 Weight 208 lbs 2017-01-04 Temperature 98.1 degrees Fahrenheit 2017-01-04 Heart Rate 88 bpm 2017-01-04 Respiratory Rate 20 2017-01-04 BMI 40.62 kg/m2 2017-01-04 Blood pressure systolic 130 mmHg 2017-01-04 Blood pressure diastolic 84 mmHg 2017-01-04 MEDICATIONS Medication Instructions Dosage Frequency Start Date [...] MOUTH 2 TIMES A DAY 24h Active Amitriptyline HCl 100 MG Orally Once at bedtime for sleep 1 tablet 90 Active Requip 4 MG Orally Once a day as directed 24h Feb, 30 days Active Albuterol Sulfate (2.5 MG/3ML) 0.083% Inhalation every 4-6 hours as needed for cough or wheeze 3 ml Jan, Active Albuterol Sulfate 90 mcg/actuation 2 puffs by Inhalation route every 4-6 hours as needed PRN cough or wheezing Oct, Active Cane 1 as directed Sep, Active Singulair 10 mg Orally Once a day 1 tablet in the evening 24h August, Active Symbicort 160-4.5 MCG/ACT Inhalation Twice a day 2 puffs 12h 20 May, 2016 Active Silvadene 1 % Externally Once a day 1 application to affected area 24h Nov, Active RESULTS No Results PROCEDURES Procedure Date Ordered Result Body Site FLUARIX QUAD (3 & UP)--2014Jan 04, 2017 SINGLE IMMUNIZATION ADMIN Jan 04, 2017 [facility] VISIT ESTABLISHED PATIENT Jan 04, 2017 INSTRUCTIONS MEDICATIONS ADMINISTERED No Known [...]
--- OUTSIDE RECORDS SUMMARY | 2017-12-22 04:55 | XMS REPORT ---
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 [facility] [place] [id number] [place] [address] 17630- 4353 Dec, [facility] [place] [id number] [place] [address] 05723- 1517 Nov, [facility] [place] [id number] [place] [address] 78918- 3941 Nov, [facility] [place] [id number] [place] [address] 19270- 8786 Nov, [facility] [place] [id number] [place] [address] 31134- 5296 Oct, [facility] [place] [address] [id number] [address]- 1911 Oct, Bipolar 1 disorder, mixed 296.60 ; No condition on [place] II V71.09 ; No condition on axis III V71.09 and ADHD (attention deficit hyperactivity disorder), combined type 314.01 [facility] [place] [address] [address]- 2910 Oct, [facility] [place] [id number] [place] [address] 15076- 4132 Oct, [facility] [place] [address] [id number] [address]- 1430 Oct, Posttraumatic stress disorder 309.81 and Schizoaffective disorder, unspecified 295.70 [place] [address] [id number] [place] [address]- 1766 Oct, [facility] [place] [facility] [address] [id number] [place] [address]- 8826 Sep, [facility] [place] [facility] [address] [id number] [place] [address]- 4066 August, [facility] [place] [facility] [address] [id number] [place] [address]- 0196 August, [facility] [place] [facility] [address] [id number] [place] [address]- 4665 August, [facility] [place] [facility] [address] [id number] [place] [address]- 8756 August, [facility] [place] [facility] [address] [id number] [place] [address]- 9381 Jul, [facility] [place] [facility] [address] [id number] [place] [address]- 8898 Jul, [facility] [place] [facility] [address] [id number] [place] [address]- 5520 Jun, [facility] [place] [facility] [address] [id number] [place] [address]- 7793 Jun, [facility] [place] [facility] [address] [id number] [place] [address]- 6654 Jun, [facility] [place] [facility] [address] [id number] [place] [address]- 5901 Jun, [facility] [place] [facility] [address] [id number] [place] [address]- 7013 Jun, [facility] [place] [facility] [address] [id number] [place] [address]- 2685 Jun, [facility] [place] [facility] [address] [id number] [place] [address]- 8098 Jun, [facility] [place] [facility] [address] [id number] [place] [address]- 5759 23 Jun, 2014 [facility] [place] [facility] [address] [id number] [place] [address]- 4776 23 Jun, 2014 [facility] [place] [facility] [address] [id number] [place] [address]- 6913 23 Jun, 2014 [facility] [place] [facility] [address] [id number] [place] [address]- 0079 23 Jun, 2014 [facility] [place] [facility] [address] [id number] [place] [address]- 7110 23 Jun, 2014 [facility] [place] [facility] [address] [id number] [place] [address]- 8825 19 Jun, 2014 [facility] [place] [facility] [address] [id number] [place] [address]- 2596 19 Jun, 2014 [facility] [place] [facility] [address] [id number] [place] [address] 19 Jun, 2014 [facility] [place] [facility] [address] [id number] [place] [address] 19 Jun, 2014 [facility] [place] [facility] [address] [id number] [place] [address] 18 Jun, 2014 [facility] [place] [facility] [address] [id number] [place] [address] 18 Jun, 2014 [facility] [place] [facility] [address] [id number] [place] [address] 18 Jun, 2014 [facility] [place] [facility] [address] [id number] [address] 18 Jun, 2014 [facility] [place] [facility] [address] [id number] [place] [address] 75[address] 17 Jun, 2014 [facility] [place] [facility] [address] [id number] [place] [address] 8[address] 17 Jun, 2014 [facility] [place] [facility] [address] [id number] [place] [address] 3416 17 Jun, 2014 [facility] [place] [facility] [address] [id number] [place] [address] 8853 17 Jun, 2014 [facility] [place] [facility] [address] [id number] [place] [address]- 2860 13 Jun, 2014 [facility] [place] [facility] [address] [id number] [place] [address] 0452 13 Jun, 2014 [facility] [place] [facility] [address] [id number] [place] [address]- 0688 12 Jun, 2014 [facility] [place] [facility] [address] [id number] [place] [address] 2762 12 Jun, 2014 [facility] [place] [facility] [address] [id number] [place] [address]- 9231 10 Jun, 2014 [facility] [place] [facility] [address] [id number] [place] [address]- 1660 10 Jun, 2014 [facility] [place] [facility] [address] [id number] [place] [address] 64[address] 10 Jun, 2014 [facility] [place] [facility] [address] [id number] [place] [address]- 4174 10 Jun, 2014 [facility] [place] [facility] [address] [id number] [place] [address]- 98[address] 06 Jun, 2014 [facility] [place] [facility] [address] [id number] [place] [address]- 6[address] 06 Jun, 2014 [facility] [place] [facility] [address] [id number] [place] [address]- 2874 05 Jun, 2014 [facility] [place] [facility] [address] [id number] [place] [address]- [address] Jun, [facility] [place] [facility] [address] [id number] [place] [address] Jun, [facility] [place] [facility] [address] [id number] [place] [address] 360[address] Jun, [facility] [place] [facility] [address] [id number] [place] [address] May, [facility] [place] [facility] [address] [id number] [place] [address]- 74[address] May, 2014 [facility] [place] [facility] [address] [facility] [id number] [place] [address] 4616 May, 2014 [facility] [place] [facility] [address] [facility] [id number] [place] [address]- 3032 May, 2014 [facility] [place] [facility] [address] [facility] [id number] [place] [address]851 May, 2014 [facility] [place] [facility] [address] [facility] [id number] [place] [address] 4849 May, 2014 [facility] [place] [facility] [address] [facility] [id number] [place] [address]- 6359 May, 2014 [facility] [place] [facility] [address] [facility] [id number] [place] [address]- 7199 May, 2014 [facility] [place] [facility] [address] [facility] [id number] [place] [address] 8981 May, 2014 [facility] [place] [facility] [address] [facility] [id number] [place] [address]- 0708 May, 2014 [facility] [place] [facility] [address] [facility] [id number] [place] [address] 3656 May, 2014 [facility] [place] [facility] [address] [facility] [id number] [place] [address]- 6434 May, 2014 [facility] [place] [facility] [address] [facility] [id number] [place] [address] May, 2014 [facility] [place] [facility] [address] [facility] [id number] [place] [address] 1440 May, 2014 [facility] [place] [facility] [address] [facility] [id number] [place] [address]- 5459 May, 2014 [facility] [place] [facility] [address] [facility] [id number] [place] [address]- 9827 May2014 [facility] [place] [facility] [address] [id number] [place] [address] Apr, [facility] [place] [facility] [address] [id number] [place] [address] Apr, [facility] [place] [facility] [address] [id number] [place] [address] Apr, [facility] [place] [facility] [address] [id number] [place] [address] 86[address] Apr, [facility] [place] [facility] [address] [id number] [place] [address] 9[address] Apr, [facility] [place] [facility] [address] [id number] [place] [address] 87[address] Apr, [facility] [place] [facility] [address] [id number] [place] [address] 1427 Apr, [facility] [place] [facility] [address] [id number] [place] [address]70 Apr, [facility] [place] [facility] [address] [id number] [place] [address] 2218 Apr, [facility] [place] [facility] [address] [id number] [place] [address] 3506 Apr, [facility] [place] [facility] [address] [id number] [place] [address] 4415 Apr, [facility] [place] [facility] [address] [id number] [place] [address] 4[address] Apr, [facility] [place] [facility] [address] [id number] [place] [address] 8412 Apr, [facility] [place] [facility] [address] [id number] [place] [address] 6554 Apr, [facility] [place] [facility] [address] [id number] [place] [address]- 0186 Apr, [facility] [place] [facility] [address] [id number] [place] [address] 3[address] Mar, [facility] [place] [facility] [address] [id number] [place] [address]- 2354 29 Mar, 2014 [facility] [place] [facility] [address] [id number] [place] [address]- 7316 Mar, [facility] [place] [facility] [address] [id number] [place] [address]- 2536 Mar, [facility] [place] [facility] [address] [id number] [place] [address]- 0469 Mar, [facility] [place] [facility] [address] [id number] [place] [address]- 5[address] Mar, [facility] [place] [facility] [address] [id number] [place] [address] 1987 Mar, [facility] [place] [facility] [address] [id number] [place] [address]- 3[address] 15 Mar, 2014 [facility] [place] [facility] [address] [id number] [place] [address]- 1139 15 Mar, 2014 [facility] [place] [facility] [address] [id number] [place] [address]- 2936 Mar, [facility] [place] [facility] [address] [id number] [place] [address]- 8565 15 Mar, 2014 [facility] [place] [facility] [address] [id number] [place] [address]- 2531 15 Mar, 2014 [facility] [place] [facility] [address] [id number] [place] [address]- 4688 12 Mar, 2014 [facility] [place] [facility] [address] [id number] [place] [address]- 8276 Mar, [facility] [place] [facility] [address] [id number] [place] [address]- 5967 Mar, [facility] [place] [facility] [address] [id number] [place] [address]- 8721 Mar, [facility] [place] [facility] [address] [id number] [place] [address]- 3704 Mar, [facility] [place] [facility] [address] [id number] [place] [address]- 4619 Mar, [facility] [place] [facility] [address] [id number] [place] [address] 3230 Feb, [facility] [place] [facility] [address] [id number] [place] [address] Feb, [facility] [place] [facility] [address] [id number] [place] [address]- 9871 Feb, [facility] [place] [facility] [address] [id number] [place] [address]- 8513 Feb, [facility] [place] [facility] [address] [id number] [place] [address]- 4893 Feb, [facility] [place] [facility] [address] [id number] [place] [address] 5754 Feb, [facility] [place] [facility] [address] [id number] [place] [address]- 4043 Feb, [facility] [place] [facility] [address] [id number] [place] [address]- 7043 Feb, [facility] [place] [facility] [address] [id number] [place] [address]- 4111 Jan, [facility] [place] [facility] [address] [id number] [place] [address]- 8351 Jan, [facility] [place] [facility] [address] [id number] [place] [address]- 8799 Jan, [facility] [place] [facility] [address] [id number] [place] [address]- 8604 Jan, [facility] [place] [facility] [address] [id number] [place] [address]- 1156 Jan, [facility] [place] [facility] [address] [id number] [place] [address]- 8897 Jan, [facility] [place] [facility] [address] [id number] [place] [address]- 9878 Jan, [facility] [place] [facility] [address] [id number] [place] [address]- 1698 Jan, [facility] [place] [facility] [address] [id number] [place] [address]- 0499 Jan, [facility] [place] [facility] [address] [id number] [place] [address]- 2789 Jan, [facility] [place] [facility] [address] [id number] [place] [address]- 1620 Jan, [facility] [place] [facility] [address] [id number] [place] [address]- 3469 Jan, [facility] [place] [facility] [address] [id number] [place] [address]- 8233 Jan, [facility] [place] [facility] [address] [id number] [place] [address]- 4026 Jan, [facility] [place] [facility] [address] [id number] [place] [address]- 6782 Jan, [facility] [place] [facility] [address] [id number] [address]- [address] 16 Jan, 2014 [facility] [place] [facility] [address] [id number] [place] [address] Jan, [facility] [place] [facility] [address] [id number] [place] [address]- 7[address] Jan, [facility] [place] [facility] [address] [id number] [place] [address]- 4351 29 Dec, 2013 [facility] [place] [facility] [address] [id number] [place] [address]- 5290 29 Dec, 2013 [facility] [place] [facility] [address] [id number] [place] [address] 97[address] 26 Dec, 2013 [facility] [place] [facility] [address] [id number] [place] [address]- 4266 26 Dec, 2013 [facility] [place] [facility] [address] [id number] [place] [address] 2546 26 Dec, 2013 [facility] [place] [facility] [address] [id number] [place] [address] 2546 26 Dec, 2013 [facility] [place] [facility] [address] [id number] [place] [address]- 7286 23 Dec, 2013 [facility] [place] [facility] [address] [id number] [place] [address] 2542 23 Dec, 2013 [facility] [place] [facility] [address] [id number] [place] [address]- 5695 22 Dec, 2013 [facility] [place] [facility] [address] [id number] [place] [address]- 9522 22 Dec, 2013 [facility] [place] [facility] [address] [id number] [place] [address]- 6411 16 Dec, 2013 [facility] [place] [facility] [address] [id number] [place] [address]- 8753 16 Dec, 2013 [facility] [place] [facility] [address] [id number] [place] [address]- 5314 15 Dec, 2013 [facility] [place] [facility] [address] [id number] [place] [address]- 9906 15 Dec, 2013 [facility] [place] [facility] [address] [id number] [place] [address]- 2548 Dec, 2013 [facility] [place] [facility] [address] [id number] [place] [address]- 2544 Dec, 2013 [facility] [place] [facility] [address] [id number] [place] [address] 2549 Dec, [facility] [place] [facility] [address] [id number] [place] [address]- 1003 Nov, [facility] [place] [facility] [address] [id number] [place] [address]- 9675 Nov, [facility] [place] [facility] [address] [id number] [place] [address]- 3082 Nov, [facility] [place] [facility] [address] [id number] [place] [address]- 1231 Nov, [facility] [place] [facility] [address] [id number] [place] [address]- 5906 Nov, [facility] [place] [facility] [address] [id number] [place] [address]- 4307 Nov, [facility] [place] [facility] [address] [id number] [place] [address]- 2624 Nov, [facility] [place] [facility] [address] [id number] [place] [address]- 0285 Nov, [facility] [place] [facility] [address] [id number] [place] [address]- 1380 Nov, [facility] [place] [facility] [address] [id number] [place] [address]- 1503 Nov, [facility] [place] [facility] [address] [id number] [place] [address]- 1930 Nov, [facility] [place] [facility] [address] [id number] [place] [address]- 3299 Nov, [facility] [place] [facility] [address] [id number] [place] [address]- 3209 Nov, [facility] [place] [facility] [address] [id number] [place] [address]- 1900 Nov, [facility] [place] [facility] [address] [id number] [place] [address]- 8053 Nov, [facility] [place] [facility] [address] [id number] [place] [address]- 7708 Nov, [facility] [place] [facility] [address] [id number] [place] [address]- 2828 Nov, [facility] [place] [facility] [address] [id number] [place] [address]- 6375 Nov, [facility] [place] [facility] [address] [id number] [place] [address]- 9496 Nov, [facility] [place] [facility] [address] [id number] [place] [address]- 2639 Nov, [facility] [place] [facility] [address] [id number] [place] [address]- 9123 Nov, [facility] [place] [facility] [address] [id number] [place] [address]- 4502 Oct, [facility] [place] [facility] [address] [id number] [place] [address]- 3554 Oct, [facility] [place] [facility] [address] [id number] [place] [address]- 7353 Oct, [facility] [place] [facility] [address] [id number] [place] [address]- 2368 Oct, [facility] [place] [facility] [address] [id number] [place] [address]- 6468 Oct, [facility] [place] [facility] [address] [id number] [place] [address]- 2533 Oct, [facility] [place] [facility] [address] [id number] [place] [address]- 7174 Oct, [facility] [place] [facility] [address] [id number] [place] [address]- 6691 Oct, [facility] [place] [facility] [address] [id number] [place] [address]- 8210 Oct, [facility] [place] [facility] [address] [id number] [place] [address]- 4475 Oct, [facility] [place] [facility] [address] [id number] [place] [address]- 1064 Oct, [facility] [place] [facility] [address] [id number] [place] [address]- 4524 Oct, [facility] [place] [facility] [address] [id number] [place] [address]- 6767 Oct, [facility] [place] [facility] [address] [id number] [place] [address]- 8586 Oct, [facility] [place] [facility] [address] [id number] [place] [address]- 5670 Oct, [facility] [place] [facility] [address] [id number] [place] [address]- 9408 Sep, [facility] [place] [facility] [address] [id number] [place] [address]- 2552 Sep, [facility] [place] [facility] [address] [id number] [place] [address]- 8210 Sep, [facility] [place] [facility] [address] [id number] [place] [address]- 9280 Sep, [facility] [place] [facility] [address] [id number] [place] [address]- 3400 Sep, [facility] [place] [facility] [address] [id number] [place] [address]- 5639 Sep, [facility] [place] [facility] [address] [id number] [place] [address]- 8326 Sep, [facility] [place] [facility] [address] [facility] [id number] [place] [address]- 9188 Sep, [facility] [place] [facility] [address] [id number] [place] [address]- 8594 17 Sep, 2013 [facility] [place] [facility] [address] [id number] [place] [address]- 9896 16 Sep, 2013 [facility] [place] [facility] [address] [id number] [place] [address]- 4910 Sep, [facility] [place] [facility] [address] [id number] [place] [address]- 6053 Sep, [facility] [place] [facility] [address] [id number] [place] [address]- 3912 Sep, [facility] [place] [facility] [address] [id number] [place] [address]- 3903 Sep, [facility] [place] [facility] [address] [id number] [place] [address]- 2857 Sep, [facility] [place] [facility] [address] [id number] [place] [address]- 0123 Sep, [facility] [place] [facility] [address] [id number] [place] [address]- 1290 Sep, [facility] [place] [facility] [address] [id number] [place] [address]- 7018 Sep, [facility] [place] [facility] [address] [id number] [place] [address]- 6868 Sep, [facility] [place] [facility] [address] [id number] [place] [address]- 2034 Sep, [facility] [place] [facility] [address] [id number] [place] [address]- 8435 Sep, [facility] [place] [facility] [address] [id number] [place] [address]- 1295 Sep, [facility] [place] [facility] [address] [id number] [place] [address]- 3088 August, [facility] [place] [facility] [address] [id number] [place] [address]- 5459 August, [facility] [place] [facility] [address] [id number] [place] [address]- 5407 August, [facility] [place] [facility] [address] [id number] [place] [address]- 4346 August, [facility] [place] [facility] [address] [id number] [place] [address]- 5674 August, [facility] [place] [facility] [address] [id number] [place] [address]- 2581 August, [facility] [place] [facility] [address] [id number] [place] [address]- 4068 August, [facility] [place] [facility] [address] [id number] [place] [address]- 7956 August, [facility] [place] [facility] [address] [id number] [place] [address]- 4931 August, [facility] [place] [facility] [address] [id number] [place] August, [facility] [place] [facility] [address] [id number] [place] [address]- 2279 August, [facility] [place] [facility] [address] [id number] [place] [address]- 3762 August, [facility] [place] [facility] [address] [id number] [place] [address]- 2046 August, [facility] [place] [facility] [address] [id number] [place] [address]- 3991 August, [facility] [place] [facility] [address] [id number] [place] [address]- 8325 August, [facility] [place] [facility] [address] [id number] [place] [address]- 5934 August, [facility] [place] [facility] [address] [id number] [place] [address]- 7404 August, [facility] [place] [facility] [address] [id number] [place] [address]- 7853 August, [facility] [place] [facility] [address] [id number] [place] [address]- 1648 Jul, [facility] [place] [facility] [address] [id number] [place] [address]- 6137 Jul, [facility] [place] [facility] [address] [id number] [place] [address]- 1318 Jul, [facility] [place] [facility] [address] [id number] [place] [address]- 6905 Jul, [facility] [place] [facility] [address] [id number] [place] [address]- 4142 24 Jul, 2013 [facility] [address] [id number] [place] [address]- 5989 Jul, [facility] [place] [facility] [address] [id number] [place] [address]- 7020 22 Jul, 2013 [facility] [address] [id number] [place] [address]- 4454 Jul, [facility] [place] [facility] [address] [id number] [place] [address]- 6835 Jul, [facility] [address] [id number] [place] [address]- 4088 Jul, [facility] [address] [id number] [place] [address]- 0547 Jul, [facility] [address] [id number] [place] [address]- 1010 18 Jul, 2013 [facility] [address] [id number] [place] [address]- 1713 18 Jul, 2013 [facility] [place] [facility] [address] [id number] [place] [address]- 6750 17 Jul, 2013 [facility] [address] [id number] [place] [address]- 9378 17 Jul, 2013 [facility] [place] [facility] [address] [id number] [place] [address]- 0950 17 Jul, 2013 [facility] [place] [facility] [address] [id number] [place] [address]- 4132 17 Jul, 2013 [facility] [place] [facility] [address] [id number] [place] [address]- 1710 16 Jul, 2013 [facility] [place] [facility] [address] [id number] [place] [address]- 8728 16 Jul, 2013 [facility] [place] [facility] [address] [id number] [place] [address]- 4247 15 Jul, 2013 [facility] [place] [facility] [address] [id number] [place] [address]- 1298 15 Jul, 2013 [facility] [place] [facility] [address] [id number] [place] [address]- 2427 14 Jul, 2013 [facility] [place] [facility] [address] [id number] [place] [address]- 0561 14 Jul, 2013 [facility] [place] [facility] [address] [id number] [place] [address]- 5837 Jul, [facility] [place] [facility] [address] [id number] [place] [address]- 4843 Jul, [facility] [place] [facility] [address] [id number] [place] [address]- 9595 Jul, [facility] [place] [facility] [address] [id number] [place] [address]- 2888 Jul, [facility] [place] [facility] [address] [id number] [place] [address]- 9058 Jul, [facility] [place] [facility] [address] [id number] [place] [address]- 1413 Jul, [facility] [place] [facility] [address] [id number] [place] [address]- 3229 17 Jun, 2013 [facility] [place] [facility] [address] [id number] [place] [address]- 3771 17 Jun, 2013 [facility] [place] [facility] [address] [id number] [place] [address]- 1559 17 Jun, 2013 [facility] [place] [facility] [address] [id number] [place] [address]- 9200 17 Jun, 2013 [facility] [place] [facility] [address] [id number] [place] [address]- 3154 13 Jun, 2013 [facility] [place] [facility] [address] [id number] [place] [address]563 13 Jun, 2013 [facility] [place] [facility] [address] [id number] [place] [address]- 6272 Jun, [facility] [place] [facility] [address] [id number] [place] [address]- 8776 Jun, [facility] [place] [facility] [address] [id number] [place] [address]- 8330 Jun, [facility] [place] [facility] [address] [facility] [id number] [place] [address]- 2081 Jun, [facility] [place] [facility] [address] [id number] [place] [address]- 2971 Jun, [facility] [place] [facility] [address] [id number] [place] [address]- 3011 Jun, [facility] [place] [facility] [address] [facility] [id number] [place] [address]- 0125 May, [facility] [place] [facility] [address] [facility] [id number] [place] [address]- 3907 May, [facility] [place] [facility] [address] [facility] [id number] [place] [address]- 3213 May, [facility] [place] [facility] [address] [facility] [id number] [place] [address]- 7602 May, 2013 [facility] [place] [facility] [address] [facility] [id number] [place] [address] 139[address] May, [facility] [place] [facility] [address] [facility] [id number] [place] [address] May, 2013 [facility] [place] [facility] [address] [facility] [id number] [place] [address] May, 2013 [facility] [place] [facility] [address] [facility] [id number] [place] [address] May, 2013 [facility] [place] [facility] [address] [facility] [id number] [place] [address] 4260 May, 2013 [facility] [place] [facility] [address] [facility] [id number] [place] [address] May, [facility] [address] [id number] [place] [address] Apr, [facility] [place] [facility] [address] [id number] [place] [address] Apr, [facility] [place] [facility] [address] [id number] [place] [address] Apr, [facility] [place] [facility] [address] [id number] [place] [address] Apr, [facility] [place] [facility] [address] [id number] [place] [address] 77[address] Apr, [facility] [place] [facility] [address] [id number] [place] [address] Apr, [facility] [place] [facility] [address] [id number] [place] [address] 4[address] Apr, [facility] [place] [facility] [address] [id number] [place] [address] 75[address] Apr, [facility] [place] [facility] [address] [id number] [place] [address] 56[address] Apr, [facility] [place] [facility] [address] [id number] [place] [address] Apr, [facility] [place] [facility] [address] [id number] [place] [address] Mar, [facility] [place] [facility] [address] [id number] [place] [address] Mar, [facility] [place] [facility] [address] [id number] [place] [address] Mar, [facility] [place] [facility] [address] [id number] [place] [address] 1046 Mar, [facility] [place] [facility] [address] [id number] [place] [address] 7066 Mar, [facility] [place] [facility] [address] [id number] [place] [address] Mar, [facility] [place] [facility] [address] [id number] [place] [address] 0767 Feb, [facility] [place] [facility] [address] [id number] [place] [address] Feb, [facility] [place] [facility] [address] [facility] [id number] [place] [address] Feb, [facility] [place] [facility] [address] [id number] [place] [address] Jan, [facility] [place] [facility] [address] [id number] [place] [address] Jan, [facility] [place] [facility] [address] [id number] [place] [address] 9199 Jan, [facility] [place] [facility] [address] [id number] [place] [address] 95[address] Jan, [facility] [place] [facility] [address] [id number] [place] [address] Jan, [facility] [place] [facility] [address] [facility] [id number] [place] [address] 35[address] Jan, [facility] [place] [facility] [address] [facility] [id number] [place] [address] 4[address] Jan, [facility] [place] [facility] [address] [id number] [place] [address] 67[address] Jan, [facility] [place] [facility] [address] [id number] [place] [address] Jan, [facility] [place] [facility] [address] [id number] [place] [address] Jan, [facility] [place] [facility] [address] [facility] [id number] [place] [address] 30 Dec, 2012 [facility] [place] [facility] [address] [id number] [place] [address] 25 Dec, 2012 [facility] [place] [facility] [address] [id number] [place] [address] 11 Dec, 2012 [facility] [place] [facility] [address] [id number] [place] [address]136 09 Dec, 2012 [facility] [place] [facility] [address] [id number] [place] [address] 2546 05 Dec, 2012 [facility] [place] [facility] [address] [id number] [place] [address] 2546 Dec, [facility] [place] [facility] [address] [id number] [place] [address] 2541 Nov, [facility] [place] [facility] [address] [id number] [place] [address] 4423 Nov, [facility] [place] [facility] [address] [id number] [place] [address] 1542 Nov, [facility] [place] [facility] [address] [id number] [place] [address]- 2913 Nov, [facility] [place] [facility] [address] [id number] [place] [address] 8171 Nov, [facility] [place] [facility] [address] [id number] [place] [address] 3506 Nov, [facility] [place] [facility] [address] [id number] [place] [address] 8540 Nov, [facility] [place] [facility] [address] [id number] [place] [address] 254 Nov, [facility] [place] [facility] [address] [id number] [place] [address] 2540 Nov, [facility] [place] [facility] [address] [id number] [place] [address]- 2541 Nov, [facility] [place] [facility] [address] [id number] [place] [address]- 2540 Nov, [facility] [place] [facility] [address] [id number] [place] [address]385 Nov, [facility] [address] [id number] [place] [address] 9957 Oct, [facility] [place] [facility] [address] [id number] [place] [address]- 4734 Oct, [facility] [address] [id number] [place] [address]- 0910 Oct, [facility] [address] [id number] [place] [address]- 9381 Sep, [facility] [address] [id number] [place] [address]- 6874 Sep, [facility] [address] [id number] [place] [address]- 5930 Sep, [facility] [address] [id number] [place] [address]- 3962 August, [facility] [place] [facility] [address] [id number] [place] [address]- 5040 August, [facility] [address] [id number] [place] [address]- 3191 August, [facility] [place] [facility] [address] [id number] [place] [address]- 5970 August, [facility] [place] [facility] [address] [id number] [place] [address] August, [facility] [place] [facility] [address] [id number] [place] [address]- 6933 August, [facility] [place] [facility] [address] [id number] [place] [address]- 7471 Jul, [facility] [place] [facility] [address] [id number] [place] [address]- 7200 Jul, [facility] [place] [facility] [address] [id number] [place] [address]- 1609 Jul, [facility] [place] [facility] [address] [id number] [place] [address]- 2518 10 Jul, 2012 [facility] [address] [id number] [place] [address]- 5661 04 Jul, 2012 [facility] [address] [id number] [place] [address]- 7134 04 Jul, 2012 [facility] [address] [id number] [place] [address]- 1520 2012 [facility] [address] [id number] [place] [address]- 2017 20 Jun, 2012 [facility] [address] [id number] [place] [address]- 2720 18 Jun, 2012 [facility] [address] [id number] [place] [address]- 5948 14 Jun, 2012 [facility] [address] [id number] [place] [address]- 3271 Jun, [facility] [address] [id number] [place] [address]- 489[address] May, [facility] [address] [id number] [place] [address] May, [facility] [address] [id number] [place] [address] May, [facility] [address] [id number] [place] [address] May, [facility] [address] [id number] [place] [address] Apr, [facility] [address] [id number] [place] [address] Apr, [facility] [address] [id number] [place] [address] Apr, [facility] [address] [id number] [place] [address] Mar, [facility] [place] [facility] [address] [id number] [place] [address] 98[address] Mar, [facility] [place] [facility] [address] [id number] [place] [address] 3266 Mar, [facility] [place] [facility] [address] [id number] [place] [address] 9[address] Mar, [facility] [place] [facility] [address] [id number] [place] [address] 1641 Mar, [facility] [place] [facility] [address] [id number] [place] [address] 49[address] Mar, [facility] [place] [facility] [address] [id number] [place] [address] 6[address] Mar, [facility] [place] [facility] [address] [id number] [place] [address] 68[address] Mar, [facility] [place] [facility] [address] [id number] [place] [address] 4[address] Feb, [facility] [place] [facility] [address] [id number] [place] [address] 1378 Feb, [facility] [place] [facility] [address] [id number] [address] Feb, [facility] [place] [facility] [address] [id number] [address] Feb, [facility] [place] [facility] [address] [id number] [address] 2411 Feb, [facility] [place] [facility] [address] [id number] [place] [address] 67[address] Feb, [facility] [place] [facility] [address] [id number] [place] [address] Feb, [facility] [place] [facility] [address] [id number] [place] [address]- 5510 Feb, [facility] [place] [facility] [address] [id number] [place] [address] Feb, [facility] [place] [facility] [address] [id number] [place] [address] 9583 Feb, [facility] [place] [facility] [address] [facility] [id number] [address] Feb, [facility] [place] [facility] [address] [facility] [id number] [place] [address]- 9668 Feb, [facility] [place] [facility] [address] [facility] [id number] [place] [address] 07[address] Feb, [facility] [place] [facility] [address] [facility] [id number] [place] [address], [place] [address]- [address] Feb, [facility] [place] [facility] [address] [facility] [id number] [place] [address]- 66[address] Feb, [facility] [place] [facility] [id number] [place] [address] Feb, [facility] [place] [facility] [address] [facility] [id number] [place] [address]- 9[address] Feb, [facility] [place] [facility] [address] [id number] [place] [address] 78[address] Feb, [facility] [place] [facility] [address] [id number] [place] [address] 6[address] Jan, [facility] [place] [facility] [address] [facility] [id number] [place] [address]- 8675 Jan, [facility] [place] [facility] [address] [facility] [id number] [place] [address]- 0[address] Jan, [facility] [place] [facility] [address] [facility] [id number] [place] [address]- 9[address] Jan, [facility] [place] [facility] [address] [facility] [id number] [place] [address]- 6[address] Jan, [facility] [place] [facility] [address] [id number] [place] [address]- 57[address] Jan, [facility] [place] [facility] [address] [id number] [place] [address] 4613 18 Jan, 2012 [facility] [place] [facility] [address] [id number] [place] [address] 6080 18 Jan, 2012 [facility] [place] [facility] [address] [id number] [place] [address]- 2726 15 Jan, 2012 [facility] [place] [facility] [address] [id number] [place] [address]- 8595 15 Jan, 2012 [facility] [place] [facility] [address] [id number] [place] [address]- 5124 Jan, [facility] [place] [facility] [address] [id number] [place] [address] 7855 11 Jan, 2012 [facility] [place] [facility] [address] [id number] [place] [address]- 6792 10 Jan, 2012 [facility] [place] [facility] [address] [id number] [place] [address]- 6184 09 Jan, 2012 [facility] [place] [facility] [address] [id number] [place] [address]- 9484 02 Jan, 2012 [facility] [place] [facility] [address] [id number] [place] [address]- 9889 29 Dec, 2011 [facility] [place] [facility] [address] [id number] [place] [address]- 1729 28 Dec, 2011 [facility] [place] [facility] [address] [id number] [place] [address]- 3231 27 Dec, 2011 [facility] [place] [facility] [address] [id number] [place] [address]- 2547 26 Dec, 2011 [facility] [place] [facility] [address] [id number] [place] [address]- 1718 24 Nov, 2011 [facility] [place] [facility] [address] [id number] [place] [address]- 8192 Nov, [facility] [place] [facility] [address] [id number] [place] [address]- 4026 Nov, [facility] [place] [facility] [address] [id number] [place] [address]- 2947 Nov, [facility] [place] [facility] [address] [id number] [place] [address]- 6141 Nov, [facility] [place] [facility] [address] [id number] [place] [address]- 6925 Nov, [facility] [place] [facility] [address] [id number] [place] [address]- 7048 Nov, [facility] [place] [facility] [address] [id number] [place] [address]- 1296 Nov, [facility] [place] [facility] [address] [id number] [place] [address]- 5068 Nov, [facility] [place] [facility] [address] [id number] [place] [address]- 5855 Nov, [facility] [place] [facility] [address] [id number] [place] [address]- 7231 Nov, [facility] [place] [facility] [address] [id number] [place] [address]- 8766 Oct, [facility] [place] [facility] [address] [id number] [place] [address]- 0957 Oct, [facility] [place] [facility] [address] [id number] [place] [address]- 5192 Oct, [facility] [place] [facility] [address] [id number] [place] [address]- 9638 Oct, [facility] [place] [facility] [address] [id number] [place] [address]- 6760 Oct, [facility] [place] [facility] [address] [id number] [place] [address]- 0557 Oct, [facility] [place] [facility] [address] [id number] [place] [address]- 4813 Oct, [facility] [place] [facility] [address] [id number] [place] [address]- 4687 Oct, [facility] [place] [facility] [address] [id number] [place] [address]- 0537 Sep, [facility] [place] [facility] [address] [id number] [place] [address]- 3454 Sep, [facility] [place] [facility] [address] [id number] [place] [address]- 4578 Sep, [facility] [place] [facility] [address] [id number] [place] [address]- 9627 Sep, [facility] [place] [facility] [address] [id number] [place] [address]- 9740 Sep, [facility] [place] [facility] [address] [id number] [place] [address]- 2995 Sep, [facility] [address] [id number] [place] [address]- 5188 Sep, [facility] [place] [facility] [address] [id number] [place] [address]- 6306 August, [facility] [place] [facility] [address] [id number] [place] [address]- 1113 August, [facility] [place] [facility] [address] [id number] [place] [address]- 0123 August, [facility] [place] [facility] [address] [id number] [place] [address]- 8660 August, [facility] [place] [facility] [address] [id number] [place] [address]- 4230 August, [facility] [place] [facility] [address] [id number] [place] [address]- 6259 August, [facility] [place] [facility] [address] [id number] [place] [address] August, [facility] [place] [facility] [address] [id number] [place] [address]- 8635 August, [facility] [place] [facility] [address] [id number] [place] [address]- 3903 28 Jul, 2011 [facility] [place] [facility] [address] [id number] [place] [address]- 1656 17 Jul, 2011 [facility] [place] [facility] [address] [id number] [place] [address]- 7266 13 Jul, 2011 [facility] [address] [id number] [place] [address]- 6506 Jul, [facility] [address] [id number] [place] [address]- 0491 05 Jul, 2011 [facility] [address] [id number] [place] [address]- 5069 Jun, [facility] [address] [id number] [place] [address]- 5512 Jun, [facility] [address] [id number] [place] [address]- 6777 Jun, [facility] [place] [facility] [address] [id number] [place] [address]- 3281 Jun, [facility] [address] [id number] [place] [address]- 7823 Jun, [facility] [place] [facility] [address] [id number] [place] [address]- 6970 Jun, [facility] [place] [facility] [address] [id number] [place] [address]- 2671 Jun, [facility] [place] [facility] [address] [id number] [place] [address]- 9083 Jun, [facility] [place] [facility] [address] [id number] [place] [address]- 4876 Jun, [facility] [place] [facility] [address] [id number] [place] [address]- 2815 May, [facility] [place] [facility] [address] [id number] [place] [address]- 0190 May, [facility] [place] [facility] [address] [id number] [place] [address]- 4426 May, [facility] [place] [facility] [address] [id number] [place] [address]- 2576 May, [facility] [place] [facility] [address] [id number] [place] [address]- 8206 May, [facility] [place] [facility] [address] [id number] [place] [address]- 6654 May, [facility] [place] [facility] [address] [id number] [place] [address]- 1606 May, [facility] [place] [facility] [address] [id number] [place] [address]- 3656 May, [facility] [place] [facility] [address] [id number] [place] [address]- 7791 Apr, [facility] [place] [facility] [address] [id number] [place] [address]- 9063 Apr, [facility] [place] [facility] [address] [id number] [place] [address]- 5036 Apr, [facility] [place] [facility] [address] [facility] [id number] [place] [address]- 0179 Apr, [facility] [place] [facility] [address] [id number] [place] [address]- 0346 Apr, [facility] [place] [facility] [address] [id number] [place] [address]- 2546 Apr, [facility] [place] [facility] [address] [id number] [place] [address]- 5049 Mar, [facility] [place] [facility] [address] [id number] [place] [address] 2546 Mar, [facility] [place] [facility] [address] [id number] [place] [address]- 3095 Mar, [facility] [place] [facility] [address] [id number] [place] [address]- 9767 Mar, [facility] [place] [facility] [address] [id number] [place] [address]- 1850 Mar, [facility] [place] [facility] [address] [id number] [place] [address]- 6151 Mar, [facility] [place] [facility] [address] [id number] [place] [address]- 4260 Mar, [facility] [address] [id number] [place] [address]- 9943 Mar, [facility] [place] [facility] [address] [id number] [place] [address]- 1107 Mar, [facility] [address] [id number] [place] [address]- 2139 Mar, [facility] [address] [id number] [place] [address]- 0596 Mar, [facility] [place] [facility] [address] [id number] [place] [address]- 5384 Mar, [facility] [place] [facility] [address] [id number] [place] [address]- 9670 Mar, [facility] [place] [facility] [address] [id number] [place] [address]- 9354 Feb, [facility] [place] [facility] [address] [id number] [place] [address]- 9366 Feb, [facility] [place] [facility] [address] [id number] [place] [address]- 6510 Feb, [facility] [place] [facility] [address] [id number] [place] [address]- 1974 Feb, [facility] [place] [facility] [address] [id number] [place] [address]- 5826 Feb, [facility] [place] [facility] [address] [id number] [place] [address]- 8606 Feb, [facility] [place] [facility] [address] [id number] [place] [address]- 8778 Feb, [facility] [place] [facility] [address] [id number] [place] [address]- 0366 Jan, [facility] [place] [facility] [address] [id number] [place] [address] 2546 17 Jan, 2011 [facility] [place] [facility] [address] [id number] [place] [address]- 8976 Jan, [facility] [place] [facility] [address] [id number] [place] [address]- 0365 Nov, [facility] [place] [facility] [address] [id number] [place] [address]- 7365 Mar, [facility] [place] [facility] [address] [id number] [place] [address]- 7130 Mar, [facility] [place] [facility] [address] [id number] [place] [address]- 8864 Mar, [facility] [place] [facility] [address] [id number] [place] [address]- 9928 Mar, [facility] [place] [facility] [address] [id number] [place] [address]- 1794 Mar, [facility] [place] [facility] [address] [id number] [place] [address]- 4138 Feb, [facility] [place] [facility] [address] [id number] [place] [address]- 3066 30 Feb, 2010 [facility] [place] [facility] [address] [id number] [place] [address] 2541 Feb, [facility] [place] [facility] [address] [id number] [place] [address]- 2547 Feb, [facility] [place] [facility] [address] [id number] [place] [address]- 2544 Feb, [facility] [place] [facility] [address] [facility] [id number] [place] [address] 15 Feb, 2010 IMMUNIZATIONS No Known Immunizations SOCIAL HISTORY Never Assessed REASON FOR VISIT Medication refill request PLAN OF CARE VITAL SIGNS MEDICATIONS Medication Instructions Dosage Frequency Start Date End Date Duration Status Levomilnacipran HCl ER 20 mg Orally Once a day 1 capsule 24h 22 Apr, 2017 90 days Active Prazosin HCl 2 MG Orally Once a day 1 capsule at bedtime 24h Apr, 90 days Active Mupirocin 2 % Externally twice a day 1 application to affected area 12h Apr, 9 May, 2017 10 days Active RESULTS No Results PROCEDURES [...] Mastectomy 02/01/2017 Hospitalization History surgeries Hospitalization History [facility] ED 10/06/2017
--- OUTSIDE RECORDS SUMMARY | 2017-12-22 04:57 | XMS REPORT ---
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 [id number] [place] [address]- 8144 10 Jun, 2014 [facility] [place] [facility] [address] [id number] [place] [address]- 4736 Jun, 2014 [facility] [place] [facility] [address] [id number] [place] [address]- 5137 Jun, 2014 [facility] [place] [facility] [address] [id number] [place] [address]- 8762 Jun, 2014 [facility] [place] [facility] [address] [facility] [id number] [place] [address]- 3608 Jun, 2014 [facility] [place] [facility] [address] [facility] [id number] [place] [address]- 0895 Jun, 2014 [facility] [place] [facility] [address] [id number] [place] [address]- 8666 Jun, [facility] [place] [facility] [address] [facility] [id number] [place] [address]- 4554 Jun, [facility] [place] [facility] [address] [facility] [id number] [place] [address]- 7354 May, 2014 [facility] [place] [facility] [address] [facility] [id number] [place] [address]- 8151 May, 2014 [facility] [place] [facility] [id number] [place] [address]- 7631 May, 2014 [facility] [place] [facility] [id number] [place] [address]- 0103 May, 2014 [facility] [place] [facility] [address] [facility] [id number] [place] [address]- 7896 May, 2014 [facility] [place] [facility] [address] [facility] [id number] [place] [address]- 4184 May, 2014 [facility] [place] [facility] [address] [facility] [id number] [place] [address]- 6024 May, 2014 [facility] [place] [facility] [address] [facility] [id number] [place] [address]- 6902 18 May, 2014 [facility] [place] [facility] [address] [place] [address]- 4016 May, 2014 [facility] [place] [facility] [address] [id number] [place] [address]- 2298 May, 2014 [facility] [place] [facility] [address] [id number] [place] [address]- 9006 May, 2014 [facility] [place] [facility] [address] [facility] [id number] [place] [address]- 9696 May, 2014 [facility] [place] [facility] [address] [id number] [place] [address]- 7172 May, 2014 [facility] [place] [facility] [address] [id number] [place] [address]- 7068 May, 2014 [facility] [place] [facility] [address] [facility] [id number] [place] [address]- 4759 May, [facility] [place] [facility] [address] [facility] [id number] [place] [address]- 7536 May, 2014 [facility] [place] [facility] [address] [facility] [id number] [place] [address]- 1632 Apr, [facility] [place] [facility] [address] [facility] [id number] [place] [address]- 9603 Apr, [facility] [place] [facility] [address] [facility] [id number] [place] [address]- 8954 Apr, [facility] [place] [facility] [address] [facility] [id number] [place] [address]- 1544 Apr, [facility] [place] [facility] [address] [facility] [id number] [address]- 6655 Apr, [facility] [place] [facility] [address] [id number] [place] [address]- 9100 Apr, [facility] [place] [facility] [address] [facility] [id number] [place] [address]- 4573 Apr, [facility] [place] [facility] [address] [facility] [id number] [address]- 0153 Apr, [facility] [place] [facility] [address] [id number] [place] [address]- 8765 Apr, [facility] [place] [facility] [address] [id number] [place] [address]- 8391 Apr, [facility] [place] [facility] [address] [id number] [place] [address]- 3161 Apr, [facility] [place] [facility] [address] [id number] [place] [address]- 0611 Apr, [facility] [place] [facility] [address] [id number] [place] [address]- 6469 Apr, [facility] [place] [facility] [address] [id number] [place] [address]- 3165 Apr, [facility] [place] [facility] [address] [id number] [place] [address]- 5351 Apr, [facility] [place] [facility] [address] [id number] [place] [address]- 7054 Mar, [facility] [place] [facility] [address] [id number] [place] [address]- 7363 Mar, [facility] [place] [facility] [address] [id number] [place] [address]- 8436 Mar, [facility] [place] [facility] [address] [id number] [place] [address]- 0913 Mar, [facility] [place] [facility] [address] [id number] [place] [address]- 8637 Mar, [facility] [place] [facility] [address] [id number] [place] [address]- 6294 Mar, [facility] [place] [facility] [address] [id number] [place] [address]- 2306 Mar, [facility] [place] [facility] [address] [id number] [place] [address]- 2542 15 Mar, 2014 [facility] [place] [facility] [address] [id number] [place] [address]- 5476 15 Mar, 2014 [facility] [place] [facility] [address] [id number] [place] [address]- 5844 15 Mar, 2014 [facility] [place] [facility] [address] [id number] [place] [address]- 3231 Mar, [facility] [place] [facility] [address] [id number] [place] [address]- 3002 Mar, [facility] [place] [facility] [address] [id number] [place] [address]- 6545 Mar, [facility] [place] [facility] [address] [id number] [place] [address]- 1594 Mar, [facility] [place] [facility] [address] [id number] [place] [address]- 7589 Mar, [facility] [place] [facility] [address] [id number] [place] [address]- 0820 Mar, [facility] [place] [facility] [address] [id number] [place] [address]- 9248 Mar, [facility] [place] [facility] [address] [id number] [place] [address]- 2904 Mar, [facility] [place] [facility] [address] [id number] [place] [address]- 8829 Feb, [facility] [place] [facility] [address] [id number] [place] [address]- 6276 Feb, [facility] [place] [facility] [address] [id number] [address]- 6689 Feb, [facility] [place] [facility] [address] [id number] [place] [address]- 7786 Feb, [facility] [place] [facility] [address] [id number] [place] [address]- 7618 Feb, [facility] [place] [facility] [address] [id number] [place] [address]- 8840 Feb, [facility] [place] [facility] [address] [id number] [place] [address]- 5924 Feb, [facility] [place] [facility] [address] [id number] [place] [address]- 3955 Feb, [facility] [place] [facility] [address] [id number] [place] [address]- 1185 Jan, [facility] [place] [facility] [address] [id number] [place] [address]- 4510 Jan, [facility] [place] [facility] [address] [id number] [place] [address]- 5385 Jan, [facility] [place] [facility] [address] [id number] [place] [address]- 8405 Jan, [facility] [place] [facility] [address] [id number] [place] [address]- 6155 Jan, [facility] [place] [facility] [address] [id number] [place] [address]- 5675 Jan, [facility] [place] [facility] [address] [id number] [place] [address]- 5400 Jan, [facility] [place] [facility] [address] [id number] [place] [address]- 5533 Jan, [facility] [place] [facility] [address] [id number] [place] [address]- 9171 Jan, [facility] [place] [facility] [address] [id number] [place] [address]- 5885 Jan, [facility] [place] [facility] [address] [id number] [place] [address]- 8674 Jan, [facility] [place] [facility] [address] [id number] [place] [address]- 7771 Jan, [facility] [place] [facility] [address] [id number] [place] [address]- 3066 Jan, [facility] [place] [facility] [address] [id number] [place] [address]- 3334 Jan, [facility] [place] [facility] [address] [id number] [place] [address]- 4098 16 Jan, 2014 [facility] [place] [facility] [address] [id number] [place] [address]- 5675 16 Jan, 2014 [facility] [place] [facility] [address] [id number] [place] [address]- 3842 13 Jan, 2014 [facility] [place] [facility] [address] [id number] [place] [address]- 5651 13 Jan, 2014 [facility] [place] [facility] [address] [id number] [place] [address]- 8681 29 Dec, 2013 [facility] [place] [facility] [address] [id number] [place] [address]- 8798 29 Dec, 2013 [facility] [place] [facility] [address] [id number] [place] [address]- 4848 26 Dec, 2013 [facility] [place] [facility] [address] [id number] [place] [address]- 6974 26 Dec, 2013 [facility] [place] [facility] [address] [id number] [place] [address]- 2543 26 Dec, 2013 [facility] [place] [facility] [address] [id number] [place] [address]- 5586 26 Dec, 2013 [facility] [place] [facility] [address] [id number] [place] [address]- 2549 23 Dec, 2013 [facility] [place] [facility] [address] [id number], [place] [address]- 2543 23 Dec, 2013 [facility] [place] [facility] [address] [id number] [place] [address]- 2540 22 Dec, 2013 [facility] [place] [facility] [address] [id number] [place] [address]- 254 22 Dec, 2013 [facility] [place] [facility] [address] [id number] [place] [address] 16 Dec, 2013 [facility] [place] [facility] [address] [id number], [place] [address] 16 Dec, 2013 [facility] [place] [facility] [address] [id number] [place] [address] 15 Dec, 2013 [facility] [place] [facility] [address] [id number] [place] [address] Dec, [facility] [place] [facility] [address] [id number] [place] [address] Dec, [facility] [place] [facility] [address] [id number] [place] [address] Dec, [facility] [place] [facility] [address] [id number] [place] [address] Dec, [facility] [place] [facility] [address] [id number] [place] [address] Nov, [facility] [place] [facility] [address] [id number] [place] [address]275 Nov, [facility] [place] [facility] [address] [id number] [place] [address] Nov, [facility] [place] [facility] [address] [id number] [place] [address]- 1041 Nov, [facility] [place] [facility] [address] [id number] [place] [address]- 94[address] Nov, [facility] [place] [facility] [address] [id number] [place] [address]- 9981 Nov, [facility] [place] [facility] [address] [id number] [place] [address]- [address] Nov, [facility] [place] [facility] [address] [id number] [place] [address] Nov, [facility] [place] [facility] [address] [id number] [place] [address]- 6147 Nov, [facility] [place] [facility] [address] [id number] [place] [address]- [address] Nov, [facility] [place] [facility] [address] [id number] [place] [address] 14 Nov, 2013 [facility] [place] [facility] [address] [id number] [place] [address]- [address] Nov, [facility] [place] [facility] [address] [id number] [place] [address]- [address] Nov, [facility] [place] [facility] [address] [id number] [place] [address]- 6579 Nov, [facility] [place] [facility] [address] [id number] [place] [address]- 6[address] Nov, [facility] [place] [facility] [address] [id number] [place] [address] Nov, [facility] [place] [facility] [address] [id number] [place] [address]- 5585 Nov, [facility] [place] [facility] [address] [id number] [place] [address]- 7177 Nov, [facility] [place] [facility] [address] [id number] [place] [address]- [address]605 Nov, [facility] [place] [facility] [address] [id number] [place] [address]- 6[address] Nov, [facility] [place] [facility] [address] [id number] [place] [address] 7647 Nov, [facility] [place] [facility] [address] [id number] [place] [address] 9476 Oct, [facility] [place] [facility] [address] [id number] [place] [address] Oct, [facility] [place] [facility] [address] [id number] [place] [address]- 7462 Oct, [facility] [place] [facility] [address] [id number] [place] [address]- 4395 Oct, [facility] [place] [facility] [address] [id number] [place] [address]- 8365 Oct, [facility] [place] [facility] [address] [id number] [place] [address]- 5783 Oct, [facility] [place] [facility] [address] [id number] [place] [address]- 6774 Oct, [facility] [place] [facility] [address] [id number] [place] [address]- [address] Oct, [facility] [place] [facility] [address] [id number] [place] [address]- 6413 Oct, [facility] [place] [facility] [address] [id number] [place] [address]- 8525 Oct, [facility] [place] [facility] [address] [id number] [place] [address]- 5677 Oct, [facility] [place] [facility] [address] [id number] [place] [address]- 0039 Oct, [facility] [place] [facility] [address] [id number] [place] [address]- 8637 Oct, [facility] [place] [facility] [address] [id number] [place] [address]- 4021 Oct, [facility] [place] [facility] [address] [id number] [place] [address]- 406[address] Oct, [facility] [place] [facility] [address] [id number] [place] [address]- 285[address] Sep, [facility] [place] [facility] [address] [id number] [place] [address]- 0478 Sep, [facility] [place] [facility] [address] [id number] [place] [address]- 8752 Sep, [facility] [place] [facility] [address] [id number] [place] [address]- 8540 Sep, [facility] [place] [facility] [address] [id number] [place] [address]- 9[address] Sep, [facility] [place] [facility] [address] [id number] [place] [address]- [address] 20 Sep, 2013 [facility] [place] [facility] [address] [id number] [place] [address]- 4[address] 18 Sep, 2013 [facility] [place] [facility] [address] [id number] [place] [address]- 3059 18 Sep, 2013 [facility] [place] [facility] [address] [id number] [place] [address]- 0471 17 Sep, 2013 [facility] [place] [facility] [address] [id number] [place] [address]- 1233 16 Sep, 2013 [facility] [place] [facility] [address] [id number] [place] [address]- 6944 Sep, [facility] [place] [facility] [address] [id number] [place] [address]- 6694 16 Sep, 2013 [facility] [place] [facility] [address] [id number] [place] [address]- 8655 Sep, [facility] [place] [facility] [address] [id number] [place] [address]- 0000 Sep, [facility] [place] [facility] [address] [id number] [place] [address]- 6256 Sep, [facility] [place] [facility] [address] [id number] [place] [address]- 4359 09 Sep, 2013 [facility] [place] [facility] [address] [id number] [place] [address]- 4934 09 Sep, 2013 [facility] [place] [facility] [address] [id number] [place] [address] 04 Sep, 2013 [facility] [place] [facility] [address] [id number] [place] [address] 9[address] 03 Sep, 2013 [facility] [place] [facility] [address] [id number] [place] [address] 03 Sep, 2013 [facility] [place] [facility] [address] [id number] [place] [address] 7461 03 Sep, 2013 [facility] [place] [facility] [address] [id number] [place] [address] 7427 Sep, [facility] [place] [facility] [address] [id number] [place] [address] 3527 August, [facility] [place] [facility] [address] [id number] [place] [address] 2914 August, [facility] [place] [facility] [address] [id number] [place] [address] 4186 August, [facility] [place] [facility] [address] [id number] [place] [address] 9566 August, [facility] [place] [facility] [address] [id number] [place] [address] 4650 August, [facility] [place] [facility] [address] [id number] [place] [address] 6541 August, [facility] [place] [facility] [address] [id number] [place] [address]- 1166 August, [facility] [place] [facility] [address] [id number] [place] [address]- 4532 August, [facility] [place] [facility] [address] [id number] [place] [address]- 5934 August, [facility] [place] [facility] [address] [id number] [place] [address]- 7780 August, [facility] [place] [facility] [address] [id number] [place] [address]- 6592 August, [facility] [place] [facility] [address] [id number] [place] [address] 0413 August, [facility] [place] [facility] [address] [id number] [place] [address] 9329 August, [facility] [place] [facility] [address] [id number] [place] [address] August, [facility] [place] [facility] [address] [id number] [place] [address]- 4394 August, [facility] [place] [facility] [address] [id number] [place] [address]- 9409 August, [facility] [place] [facility] [address] [id number] [place] [address]- 0192 August, [facility] [place] [facility] [address] [id number] [place] [address]- 4498 August, [facility] [place] [facility] [address] [id number] [place] [address]- 0128 Jul, [facility] [place] [facility] [address] [id number] [place] [address]- 4724 Jul, [facility] [place] [facility] [address] [id number] [place] [address]- 5708 Jul, [facility] [place] [facility] [address] [id number] [place] [address]- 0751 Jul, [facility] [place] [facility] [address] [id number] [place] [address]- 0632 Jul, [facility] [place] [facility] [address] [id number] [place] [address]- 9263 Jul, [facility] [place] [facility] [address] [id number] [place] [address]- 8805 Jul, [facility] [place] [facility] [address] [id number] [place] [address]- 7266 Jul, [facility] [place] [facility] [address] [id number] [place] [address]- 8168 Jul, [facility] [place] [facility] [address] [id number] [place] [address]- 6768 Jul, [facility] [place] [facility] [address] [id number] [place] [address]- 4487 Jul, [facility] [place] [facility] [address] [id number] [place] [address]- 3062 Jul, [facility] [place] [facility] [address] [id number] [place] [address]- 9893 18 Jul, 2013 [facility] [address] [id number] [place] [address]- 1542 17 Jul, 2013 [facility] [address] [id number] [place] [address]- 0814 17 Jul, 2013 [facility] [address] [id number] [place] [address]- 0738 17 Jul, 2013 [facility] [address] [id number] [place] [address]- 1421 17 Jul, 2013 [facility] [address] [id number] [place] [address]- 5977 16 Jul, 2013 [facility] [address] [id number] [place] [address]- 1085 16 Jul, 2013 [facility] [address] [id number] [place] [address]- 9746 15 Jul, 2013 [facility] [address] [id number] [place] [address]- 7617 15 Jul, 2013 [facility] [address] [id number] [place] [address]- 3444 14 Jul, 2013 [facility] [address] [id number] [place] [address]- 4708 14 Jul, 2013 [facility] [place] [facility] [address] [id number] [place] [address]- 1831 12 Jul, 2013 [facility] [place] [facility] [address] [id number] [place] [address]- 5281 12 Jul, 2013 [facility] [place] [facility] [address] [id number] [place] [address]- 5575 03 Jul, 2013 [facility] [place] [facility] [address] [id number] [place] [address]- 5950 03 Jul, 2013 [facility] [place] [facility] [address] [id number] [place] [address]- 7238 03 Jul, 2013 [facility] [place] [facility] [address] [id number] [place] [address]- 5904 Jul, [facility] [place] [facility] [address] [id number] [place] [address]- 1076 17 Jun, 2013 [facility] [place] [facility] [address] [id number] [place] [address] 2546 17 Jun, 2013 [facility] [place] [facility] [address] [id number] [place] [address] 2546 17 Jun, 2013 [facility] [place] [facility] [address] [id number] [place] [address]- 9012 17 Jun, 2013 [facility] [place] [facility] [address] [id number] [place] [address]- 0718 Jun, [facility] [place] [facility] [address] [id number] [place] [address]- 5833 Jun, [facility] [place] [facility] [address] [id number] [place] [address]- 4074 Jun, [facility] [place] [facility] [address] [id number] [place] [address]- 1015 Jun, [facility] [place] [facility] [address] [id number] [place] [address]- 1165 Jun, [facility] [place] [facility] [address] [id number] [place] [address]- 3877 Jun, [facility] [place] [facility] [address] [id number] [place] [address]- 6486 Jun, [facility] [place] [facility] [address] [id number] [place] [address]- 4127 Jun, [facility] [place] [facility] [address] [id number] [place] [address]- 0646 May, [facility] [place] [facility] [address] [id number] [place] [address]- 1666 May, [facility] [place] [facility] [address] [id number], [place] [address]- 5541 07 May, 2013 [facility] [place] [facility] [address] [id number] [place] [address]- 1466 May, [facility] [place] [facility] [address] [id number] [place] [address] May, [facility] [place] [facility] [address] [id number] [place] [address]- 4976 May, [facility] [place] [facility] [address] [id number] [place] [address]- 3012 May, [facility] [place] [facility] [address] [id number] [place] [address]- 5474 May, [facility] [place] [facility] [address] [facility] [id number] [place] [address]- 7089 May, [facility] [place] [facility] [address] [facility] [id number] [place] [address]- 9052 May, [facility] [place] [facility] [address] [id number] [place] [address]- 0855 Apr, [facility] [place] [facility] [address] [facility] [id number] [place] [address]- 0484 Apr, [facility] [place] [facility] [address] [facility] [id number] [place] [address]- 0696 Apr, [facility] [place] [facility] [address] [id number] [place] [address]- 2151 Apr, [facility] [place] [facility] [address] [id number] [place] [address]- 0069 Apr, [facility] [place] [facility] [address] [id number] [place] [address]- 4233 Apr, [facility] [place] [facility] [address] [facility] [id number] [place] [address]- 3828 Apr, [facility] [place] [facility] [address] [id number] [place] [address]- 3451 Apr, [facility] [place] [facility] [address] [id number] [place] [address]- 5992 Apr, [facility] [place] [facility] [address] [id number] [place] [address]- 8895 Apr, [facility] [place] [facility] [address] [id number] [place] [address]- 1242 Mar, [facility] [place] [facility] [address] [id number] [place] [address]- 6527 Mar, [facility] [place] [facility] [address] [id number] [place] [address]- 7572 Mar, [facility] [place] [facility] [address] [id number] [place] [address]- 6692 Mar, [facility] [place] [facility] [address] [id number] [place] [address]- 6487 Mar, [facility] [place] [facility] [address] [id number] [place] [address]- 9071 Mar, [facility] [place] [facility] [address] [id number] [place] [address]- 2873 Feb, [facility] [place] [facility] [address] [id number] [address]- 0346 Feb, [facility] [place] [facility] [address] [id number], [place] [address]- 7508 Feb, [facility] [place] [facility] [address] [id number], [place] [address]- 9455 Jan, [facility] [place] [facility] [address] [id number] [place] [address]- 7763 Jan, [facility] [place] [facility] [address] [id number], [place] [address]- 6322 Jan, [facility] [place] [facility] [address] [id number], [place] [address]- 4260 Jan, [facility] [place] [facility] [address] [id number], [place] [address]- 2176 15 Jan, 2013 [facility] [place] [facility] [address] [id number] [place] [address]- 8077 15 Jan, 2013 [facility] [place] [facility] [address] [id number] [address]- 5267 Jan, [facility] [place] [facility] [address] [id number] [place] [address]- 6226 Jan, [facility] [place] [facility] [address] [id number] [place] [address]- 7985 Jan, [facility] [place] [facility] [address] [id number] [place] [address]- 1791 Jan, [facility] [place] [facility] [address] [id number] [place] [address]- 5771 30 Dec, 2012 [facility] [place] [facility] [address] [id number] [address]- 8228 25 Dec, 2012 [facility] [place] [facility] [address] [id number] [place] [address]- 7696 11 Dec, 2012 [facility] [place] [facility] [address] [id number] [place] [address]- 6097 Dec, [facility] [place] [facility] [address] [facility] [id number] [place] [address]- 9409 05 Dec, 2012 [facility] [place] [facility] [address] [id number] [address]- 8388 Dec, 2012 [facility] [place] [facility] [address] [id number], [place] [address]- 7376 Nov, [facility] [place] [facility] [address] [id number] [place] [address]- 0117 Nov, [facility] [place] [facility] [address] [facility] [id number], [place] [address]- 0290 Nov, [facility] [place] [facility] [address] [id number] [place] [address]- 8232 Nov, [facility] [place] [facility] [address] [id number] [place] [address]- 9927 Nov, [facility] [place] [facility] [address] [id number] [place] [address]- 0580 Nov, [facility] [place] [facility] [address] [id number] [place] [address]- 9828 Nov, [facility] [place] [facility] [address] [id number] [place] [address]- 0696 Nov, [facility] [place] [facility] [address] [id number] [place] [address]- 1038 Nov, [facility] [place] [facility] [address] [id number] [place] [address]- 2493 Nov, [facility] [place] [facility] [address] [id number] [place] [address]- 8063 Nov, [facility] [place] [facility] [address] [id number] [place] [address]- 6729 Nov, [facility] [place] [facility] [address] [id number] [place] [address]- 9811 Oct, [facility] [place] [facility] [address] [id number] [place] [address]- 5883 Oct, [facility] [place] [facility] [address] [id number] [place] [address]- 1519 Oct, [facility] [place] [facility] [address] [id number] [place] [address]- 5996 Sep, [facility] [place] [facility] [address] [id number] [place] [address]- 6245 Sep, [facility] [place] [facility] [address] [id number] [place] [address]- 6839 Sep, [facility] [place] [facility] [address] [id number] [place] [address]- 0949 August, [facility] [place] [facility] [address] [id number] [place] [address]- 5102 August, [facility] [address] [id number] [place] [address]- 6436 August, [facility] [address] [id number] [place] [address]- 0691 August, [facility] [address] [id number] [place] [address]- 7621 August, [facility] [address] [id number] [place] [address]- 2551 August, [facility] [address] [id number] [place] [address]- 5835 Jul, [facility] [address] [id number] [place] [address]- 8750 Jul, [facility] [address] [id number] [place] [address]- 1030 Jul, [facility] [address] [id number] [place] [address]- 4693 Jul, [facility] [address] [id number] [place] [address]- 0083 Jul, [facility] [address] [id number] [place] [address]- 5295 Jul, [facility] [address] [id number] [place] [address]- 2299 2012 [facility] [place] [facility] [address] [id number], [place] [address]- 3530 20 Jun, 2012 [facility] [place] [facility] [address] [id number] [place] [address]- 9073 18 Jun, 2012 [facility] [place] [facility] [address] [id number] [place] [address]- 8532 14 Jun, 2012 [facility] [place] [facility] [address] [id number] [place] [address]- 8949 04 Jun, 2012 [facility] [address] [id number] [place] [address]- 8986 13 May, 2012 [facility] [address] [id number] [place] [address]- 7816 12 May, 2012 [facility] [address] [id number] [place] [address] 2546 11 May, 2012 [facility] [address] [id number] [place] [address]- 9176 08 May, 2012 [facility] [address] [id number] [place] [address]- 9746 Apr, [facility] [address] [id number] [place] [address]- 3036 Apr, [facility] [address] [id number] [place] [address]- 0286 Apr, [facility] [address] [id number] [place] [address]- 0926 Mar, [facility] [address] [id number] [place] [address]- 2546 Mar, [facility] [address] [id number] [place] [address]- 2886 Mar, [facility] [address] [id number] [place] 2621 29 Mar, 2012 [facility] [address] [id number] [place] [address] 2546 Mar, [facility] [address] [id number] [place] [address]- 2546 Mar, [facility] [address] [id number] [place] [address]- 0266 Mar, [facility] [address] [id number] [place] [address]- 2546 Mar, [facility] [address] [id number] [place] 6174 Feb, [facility] [place] [facility] [address] [id number] [place] [address]- 6520 Feb, [facility] [place] [facility] [address] [id number] [place] [address]- 9374 Feb, [facility] [place] [facility] [address] [id number] [place] [address]- 1301 Feb, [facility] [place] [facility] [address] [id number] [place] [address]- 5173 Feb, [facility] [place] [facility] [address] [id number] [place] [address]- 6557 Feb, [facility] [place] [facility] [address] [id number] [place] [address]- 4531 Feb, [facility] [place] [facility] [address] [id number] [place] [address]- 7727 Feb, [facility] [place] [facility] [address] [id number], [place] [address]- 4994 Feb, [facility] [place] [facility] [address] [id number] [place] [address]- 3283 Feb, [facility] [place] [facility] [address] [id number], [place] [address]- 6642 Feb, [facility] [place] [facility] [address] [id number], [place] [address]- 6733 Feb, [facility] [place] [facility] [address] [id number], [place] [address]- 8246 Feb, [facility] [place] [facility] [address] [id number], [place] [address]- 2551 Feb, [facility] [place] [facility] [address] [id number], [place] [address]- 0216 Feb, [facility] [place] [facility] [address] [id number], [place] [address]- 6209 Feb, [facility] [place] [facility] [address] [id number], [place] [address]- 1874 05 Feb, 2012 [facility] [place] [facility] [address] [id number] [place] [address]- 9879 05 Feb, 2012 [facility] [place] [facility] [address] [facility] [id number], [place] [address]- 5971 Jan, [facility] [place] [facility] [address] [facility] [id number] [place] [address]- 3433 Jan, [facility] [place] [facility] [address] [id number] [place] [address]- 5249 22 Jan, 2012 [facility] [place] [facility] [address] [facility] [id number] [place] [address], [place] [address]- 1702 Jan, [facility] [place] [facility] [address] [facility] [id number] [place] [address]- 2602 20 Jan, 2012 [facility] [place] [facility] [address] [facility] [id number], [place] [address]- 4319 19 Jan, 2012 [facility] [place] [facility] [address] [facility] [id number], [place] [address]- 2526 18 Jan, 2012 [facility] [place] [facility] [address] [facility] [id number], [place] [address]- 1505 18 Jan, 2012 [facility] [place] [facility] [address] [facility] [id number], [place] [address]- 7308 15 Jan, 2012 [facility] [place] [facility] [address] [facility] [id number], [place] [address]- 9767 15 Jan, 2012 [facility] [place] [facility] [address] [facility] [id number], [place] [address]- 9197 11 Jan, 2012 [facility] [place] [facility] [address] [facility] [id number], [place] [address]- 2158 11 Jan, 2012 [facility] [place] [facility] [address] [facility] [id number] [address] 10 Jan, 2012 [facility] [place] [facility] [address] [facility] [id number], [place] [address] 09 Jan, 2012 [facility] [place] [facility] [address] [id number] [place] [address] Jan, [facility] [place] [facility] [address] [id number] [place] [address] 29 Dec, 2011 [facility] [place] [facility] [address] [id number] [place] [address] 2546 28 Dec, 2011 [facility] [place] [facility] [address] [id number] [place] [address]26 27 Dec, 2011 [facility] [place] [facility] [address] [id number] [place] [address] 26 Dec, 2011 [facility] [place] [facility] [address] [id number] [place] [address] Nov, [facility] [place] [facility] [address] [id number] [place] [address] Nov, [facility] [place] [facility] [address] [id number] [place] [address] Nov, [facility] [place] [facility] [address] [id number] [place] [address]- 6549 Nov, [facility] [place] [facility] [address] [id number] [place] [address]- 6[address] Nov, [facility] [place] [facility] [address] [id number] [place] [address]- 4049 Nov, [facility] [place] [facility] [address] [id number] [place] [address]- 37[address] Nov, [facility] [place] [facility] [address] [id number] [place] [address]- 0610 Nov, [facility] [place] [facility] [address] [id number] [place] [address]- 2833 Nov, [facility] [place] [facility] [address] [id number] [place] [address]- 8286 Nov, [facility] [place] [facility] [address] [id number] [place] [address]- 9623 Nov, [facility] [place] [facility] [address] [id number] [place] [address]- 8285 Oct, [facility] [place] [facility] [address] [id number] [place] [address]- 0776 Oct, [facility] [place] [facility] [address] [id number] [place] [address]- 0665 Oct, [facility] [place] [facility] [address] [id number] [place] [address]- 8917 Oct, [facility] [place] [facility] [address] [id number] [place] [address]- 6859 Oct, [facility] [place] [facility] [address] [id number] [place] [address]- 3513 Oct, [facility] [place] [facility] [address] [id number] [place] [address]- 9942 Oct, [facility] [place] [facility] [address] [id number] [place] [address]- 1844 Oct, [facility] [place] [facility] [address] [id number] [place] [address]- 244[address] Sep, [facility] [place] [facility] [address] [id number] [place] [address]- 2075 Sep, [facility] [place] [facility] [address] [id number] [place] [address]- 3426 Sep, [facility] [place] [facility] [address] [id number] [place] [address]- 9823 Sep, [facility] [place] [facility] [address] [id number] [place] [address]- 2779 Sep, [facility] [place] [facility] [address] [id number] [place] [address]- 9377 Sep, [facility] [place] [facility] [address] [id number] [place] [address]- 9080 Sep, [facility] [place] [facility] [address] [id number] [place] [address]- 45[address] August, [facility] [address] [id number] [place] [address] 8697 August, [facility] [place] [facility] [address] [id number] [place] [address]- 4646 August, [facility] [address] [id number] [place] [address]- 8816 August, [facility] [place] [facility] [address] [id number] [place] [address]- 2612 August, [facility] [address] [id number] [place] [address]- 6329 August, [facility] [address] [id number] [place] [address]- 8176 August, [facility] [address] [id number] [place] [address]- 8331 August, [facility] [address] [id number] [place] [address]- 55[address] Jul, [facility] [place] [facility] [address] [id number] [place] [address]- 7802 17 Jul, 2011 [facility] [address] [id number] [place] [address]- 1583 13 Jul, 2011 [facility] [place] [facility] [address] [id number] [place] [address]- 0898 11 Jul, 2011 [facility] [place] [facility] [address] [id number] [place] [address]- 5429 05 Jul, 2011 [facility] [place] [facility] [address] [id number] [place] [address]- 9372 28 Jun, 2011 [facility] [place] [facility] [address] [id number] [place] [address]- 7276 Jun, [facility] [place] [facility] [address] [id number] [place] [address]- 4073 Jun, [facility] [place] [facility] [address] [id number] [place] [address]- 1434 Jun, [facility] [place] [facility] [address] [id number] [place] [address]- 9326 Jun, [facility] [place] [facility] [address] [id number] [place] [address]- 4056 Jun, [facility] [place] [facility] [address] [id number] [place] [address]- 7864 Jun, [facility] [place] [facility] [address] [id number] [place] [address]- 8304 Jun, [facility] [place] [facility] [address] [id number] [place] [address]- 0751 Jun, [facility] [place] [facility] [address] [id number] [place] [address]- 5957 May, [facility] [place] [facility] [address] [id number] [place] [address]- 9788 24 May, 2011 [facility] [place] [facility] [address] [id number] [place] [address]- 4997 May, [facility] [place] [facility] [address] [id number] [place] [address]- 2182 May, [facility] [place] [facility] [address] [id number] [place] [address]- 5219 May, [facility] [place] [facility] [address] [id number] [place] [address]- 9243 May, [facility] [place] [facility] [address] [id number] [place] [address]- 4735 07 May, 2011 [facility] [place] [facility] [address] [id number] [place] [address] 06 May, 2011 [facility] [place] [facility] [address] [id number] [place] [address]- 1349 Apr, [facility] [place] [facility] [address] [id number] [place] [address]- 4822 30 Apr, 2011 [facility] [address] [id number] [place] [address]- 0386 Apr, [facility] [address] [id number] [place] [address] Apr, [facility] [address] [id number] [place] [address] Apr, [facility] [address] [id number] [place] [address] Apr, [facility] [address] [id number] [place] [address] Mar, [facility] [address] [id number] [place] [address] Mar, [facility] [address] [id number] [place] [address] Mar, [facility] [address] [id number] [place] [address] Mar, [facility] [address] [id number] [place] [address] 15 Mar, 2011 [facility] [address] [facility] [id number] [place] [address] Mar, [facility] [address] [id number] [place] [address] Mar, [facility] [place] [facility] [address] [id number] [place] [address] Mar, [facility] [place] [facility] [address] [id number] [place] [address] Mar, [facility] [place] [facility] [address] [id number] [place] [address] 06 Mar, 2011 [facility] [address] [id number] [place] [address] Mar, [facility] [place] [facility] [address] [id number] [place] [address] Mar, [facility] [place] [facility] [address] [id number] [place] [address] Mar, [facility] [place] [facility] [address] [id number] [place] [address] Feb, [facility] [place] [facility] [address] [id number] [place] [address] Feb, [facility] [place] [facility] [address] [id number] [place] [address] Feb, [facility] [place] [facility] [address] [id number] [place] [address] Feb, [facility] [place] [facility] [address] [id number] [place] [address] Feb, [facility] [place] [facility] [address] [id number] [place] [address]698 Feb, [facility] [place] [facility] [address] [id number] [place] [address] Feb, [facility] [place] [facility] [address] [id number] [place] [address] Jan, [facility] [place] [facility] [address] [id number] [place] [address] Jan, [facility] [place] [facility] [address] [id number] [place] [address] Jan, [facility] [place] [facility] [address] [id number] [place] [address] Nov, [facility] [place] [facility] [address] [id number] [place] [address] Mar, [facility] [place] [facility] [address] [id number] [place] [address] Mar, [facility] [place] [facility] [address] [id number] [address] 20 Mar, 2010 [facility] [address] [id number] [address] Mar, [facility] [address] [facility] [id number] [address] Mar, [facility] [address] [id number] [address] 30 Feb, 2010 [facility] [id number] [address] 30 Feb, 2010 [facility] [address] [id number] [address] Feb, [facility] [id number] [address] Feb, [facility] [address] [id number] [address] Feb, [facility] [address] [id number] [address] 15 Feb, 2010 IMMUNIZATIONS No Known Immunizations SOCIAL HISTORY Never Assessed REASON FOR VISIT Referral request PLAN OF CARE VITAL SIGNS MEDICATIONS Unknown [...]
--- OUTSIDE RECORDS SUMMARY | 2017-12-22 05:01 | XMS REPORT ---
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 [facility] [address] [id number] [place] [address]- 2973 18 Jun, 2014 [facility] [place] [facility] [address] [id number] [place] [address]- 9299 18 Jun, 2014 [facility] [place] [facility] [address] [id number] [place] [address]- 8326 18 Jun, 2014 [facility] [place] [facility] [address] [id number] [place] [address]- 6930 18 Jun, 2014 [facility] [place] [facility] [address] [id number] [place] [address]- 0509 17 Jun, 2014 [facility] [place] [facility] [address] [id number] [place] [address]- 9176 17 Jun, 2014 [facility] [place] [facility] [address] [id number] [place] [address]- 0886 17 Jun, 2014 [facility] [place] [facility] [address] [id number] [place] [address]- 2140 17 Jun, 2014 [facility] [place] [facility] [address] [id number] [place] [address]- 2058 13 Jun, 2014 [facility] [place] [facility] [address] [id number] [place] [address]- 4335 13 Jun, 2014 [facility] [place] [facility] [address] [id number] [place] [address]- 3241 Jun, [facility] [place] [facility] [address] [id number] [place] [address]- 3820 Jun, [facility] [place] [facility] [address] [id number] [place] [address]- 3814 Jun, [facility] [place] [facility] [address] [id number] [place] [address]- 7886 Jun, [facility] [place] [facility] [address] [id number] [place] [address]- 0741 Jun, [facility] [place] [facility] [address] [id number] [place] [address]- 2671 Jun, [facility] [place] [facility] [address] [facility] [id number] [place] [address]- 7696 Jun, [facility] [place] [facility] [address] [id number] [place] [address]- 0749 Jun, [facility] [place] [facility] [address] [id number] [place] [address]- 0644 Jun, [facility] [place] [facility] [address] [facility] [id number] [place] [address]- 4223 Jun, [facility] [place] [facility] [address] [id number] [place] [address]- 4533 Jun, [facility] [place] [facility] [address] [id number] [place] [address]- 0409 Jun, [facility] [place] [facility] [address] [id number] [place] [address]- 8931 May, [facility] [place] [facility] [address] [id number] [place] [address]- 5292 May, [facility] [place] [facility] [address] [facility] [id number] [place] [address]- 5903 May, [facility] [place] [facility] [address] [id number] [place] [address]- 6321 May, 2014 [facility] [place] [facility] [address] [id number] [place] [address]- 0256 May, 2014 [facility] [place] [facility] [address] [id number] [place] [address] 2546 May, 2014 [facility] [place] [facility] [address] [id number] [place] [address]- 5522 May, 2014 [facility] [place] [facility] [address] [id number] [place] [address]- 6192 May, 2014 [facility] [place] [facility] [address] [id number] [place] [address]- 9016 May, 2014 [facility] [place] [facility] [address] [facility] [id number] [place] [address]- 8385 May, 2014 [facility] [place] [facility] [address] [id number] [place] [address]- 0927 May, 2014 [facility] [place] [facility] [address] [facility] [id number] [place] [address]- 0845 May, 2014 [facility] [place] [facility] [address] [facility] [id number] [place] [address]- 5621 May, 2014 [facility] [place] [facility] [address] [facility] [id number] [place] [address]- 0119 May, 2014 [facility] [place] [facility] [address] [id number] [address]- 2544 May, 2014 [facility] [place] [facility] [address] [facility] [id number] [place] [address]- 2745 May, 2014 [facility] [place] [facility] [address] [facility] [id number] [place] [address]- 1709 Apr, [facility] [place] [facility] [address] [facility] [id number] [place] [address]- 7701 Apr, [facility] [place] [facility] [address] [facility] [id number] [place] [address]- 8211 Apr, [facility] [address] [id number] [place] [address]- 7384 Apr, [facility] [place] [facility] [address] [id number] [place] [address]- 2352 Apr, [facility] [place] [facility] [address] [id number] [place] [address]- 8013 Apr, [facility] [place] [facility] [address] [id number] [place] [address]- 4491 Apr, [facility] [place] [facility] [address] [id number] [place] [address]- 5953 Apr, [facility] [place] [facility] [address] [id number] [place] [address]- 3185 Apr, [facility] [place] [facility] [address] [id number] [place] [address]- 3633 Apr, [facility] [place] [facility] [address] [id number] [place] [address]- 6565 Apr, [facility] [place] [facility] [address] [id number] [place] [address]- 8062 Apr, [facility] [place] [facility] [address] [id number] [place] [address]- 4669 Apr, [facility] [place] [facility] [address] [id number] [place] [address]- 9526 Apr, [facility] [place] [facility] [address] [id number] [place] [address]- 0916 Apr, [facility] [place] [facility] [address] [id number] [place] [address]- 0969 Mar, [facility] [place] [facility] [address] [id number] [place] [address]- 7602 Mar, [facility] [place] [facility] [address] [id number] [place] [address]- 3308 Mar, [facility] [place] [facility] [address] [id number] [place] [address]- 5266 Mar, [facility] [place] [facility] [address] [id number] [place] [address]- 8907 Mar, [facility] [place] [facility] [address] [id number] [place] [address]- 1492 Mar, [facility] [place] [facility] [address] [id number] [place] [address]- 3603 Mar, [facility] [place] [facility] [address] [id number] [place] [address]- 7899 Mar, [facility] [place] [facility] [address] [id number] [place] [address]- 7608 Mar, [facility] [place] [facility] [address] [id number] [place] [address]- 1487 Mar, [facility] [place] [facility] [address] [id number] [place] [address]- 9077 Mar, [facility] [place] [facility] [address] [id number] [place] [address]- 0211 Mar, [facility] [place] [facility] [address] [id number] [place] [address]- 0497 Mar, [facility] [place] [facility] [address] [id number] [place] [address]- 4321 Mar, [facility] [place] [facility] [address] [id number] [place] [address]- 3398 Mar, [facility] [place] [facility] [address] [id number] [place] [address]- 9246 Mar, [facility] [place] [facility] [address] [id number] [place] [address]- 8255 Mar, [facility] [place] [facility] [address] [id number] [place] 3222 Mar, [facility] [place] [facility] [address] [id number] [place] [address]- 1886 Feb, [facility] [place] [facility] [address] [id number] [place] [address]- 9461 Feb, [facility] [place] [facility] [address] [id number] [place] [address]- 0230 Feb, [facility] [place] [facility] [address] [id number] [place] [address] Feb, [facility] [place] [facility] [address] [id number] [place] [address] Feb, [facility] [place] [facility] [address] [id number] [place] [address] Feb, [facility] [place] [facility] [address] [id number] [place] [address] Feb, [facility] [place] [facility] [address] [id number] [place] [address] Feb, [facility] [place] [facility] [address] [id number] [place] [address] Jan, [facility] [place] [facility] [address] [id number] [place] [address] Jan, [facility] [place] [facility] [address] [id number] [place] [address] Jan, [facility] [place] [facility] [address] [id number], [place] [address] Jan, [facility] [place] [facility] [address] [id number], [place] [address] 31 Jan, 2014 [facility] [place] [facility] [address] [id number] [place] [address] 31 Jan, 2014 [facility] [place] [facility] [address] [id number] [place] [address] Jan, [facility] [place] [facility] [address] [id number] [place] [address] Jan, [facility] [place] [facility] [address] [id number] [place] [address] 24 Jan, 2014 [facility] [place] [facility] [address] [id number] [place] [address] 24 Jan, 2014 [facility] [place] [facility] [address] [id number] [place] [address] Jan, [facility] [place] [facility] [address] [id number] [place] [address] Jan, [facility] [place] [facility] [address] [id number] [place] [address] Jan, [facility] [place] [facility] [address] [id number] [place] [address] Jan, [facility] [place] [facility] [address] [id number] [place] [address] 16 Jan, 2014 [facility] [place] [facility] [address] [id number] [place] [address] 16 Jan, 2014 [facility] [place] [facility] [address] [id number] [place] [address] Jan, [facility] [place] [facility] [address] [id number] [place] [address] 13 Jan, 2014 [facility] [place] [facility] [address] [id number] [place] [address] 29 Dec, 2013 [facility] [place] [facility] [address] [id number] [place] [address]- [address] 29 Dec, 2013 [facility] [place] [facility] [address] [id number] [place] [address]- [address] 26 Sep, 2013 [facility] [place] [facility] [address] [id number] [place] [address]- [address] 26 Dec, 2013 [facility] [place] [facility] [address] [id number] [place] [address]- [address] 26 Dec, 2013 [facility] [place] [facility] [address] [id number] [place] [address]- [address] 26 Dec, 2013 [facility] [place] [facility] [address] [id number] [place] [address]- [address] 23 Dec, 2013 [facility] [place] [facility] [address] [id number] [place] [address] 23 Dec, 2013 [facility] [place] [facility] [address] [id number] [place] [address] 22 Dec, 2013 [facility] [place] [facility] [address] [id number] [place] [address] 2540 22 Dec, 2013 [facility] [place] [facility] [address] [id number] [place] [address] 16 Dec, 2013 [facility] [place] [facility] [address] [id number] [place] [address]- [address] 16 Dec, 2013 [facility] [place] [facility] [address] [id number] [place] [address] 15 Dec, 2013 [facility] [place] [facility] [address] [id number] [place] [address] 15 Dec, 2013 [facility] [place] [facility] [address] [id number] [place] [address]- [address] 09 Dec, 2013 [facility] [place] [facility] [address] [id number] [place] [address] Dec, [facility] [place] [facility] [address] [id number] [place] [address] Dec, [facility] [place] [facility] [address] [id number] [place] [address] Nov, [facility] [place] [facility] [address] [id number] [place] [address] Nov, [facility] [place] [facility] [address] [id number] [place] [address] Nov, [facility] [place] [facility] [address] [id number] [place] [address] Nov, [facility] [place] [facility] [address] [id number] [place] [address]- [address] Nov, [facility] [place] [facility] [address] [id number] [place] [address] Nov, [facility] [place] [facility] [address] [id number] [place] [address]- [address] Nov, [facility] [place] [facility] [address] [id number] [place] [address] 37[address] Nov, [facility] [place] [facility] [address] [id number] [place] [address] Nov, [facility] [place] [facility] [address] [id number] [place] [address] Nov, [facility] [place] [facility] [address] [id number] [place] [address]57 Nov, [facility] [place] [facility] [address] [id number] [place] [address] 4[address] Nov, [facility] [place] [facility] [address] [id number] [place] [address] 4636 Nov, [facility] [place] [facility] [address] [id number] [place] [address] 1240 Nov, [facility] [place] [facility] [address] [id number] [place] [address] 8961 Nov, [facility] [place] [facility] [address] [id number] [place] [address] 3754 Nov, [facility] [place] [facility] [address] [id number] [place] [address] 7920 Nov, [facility] [place] [facility] [address] [id number] [place] [address]- 0692 Nov, [facility] [place] [facility] [address] [id number] [place] [address] 3534 Nov, [facility] [place] [facility] [address] [id number] [place] [address]- 2410 Nov, [facility] [place] [facility] [address] [id number] [facility] [place] [address] Nov, [facility] [place] [facility] [address] [id number] [facility] [place] [address] 6[address] Oct, [facility] [place] [facility] [address] [id number] [place] [address] 6360 Oct, [facility] [place] [facility] [address] [id number] [place] [address] 1450 Oct, [facility] [place] [facility] [address] [id number] [place] [address]- 7242 Oct, [facility] [place] [facility] [address] [id number] [place] [address] 0149 Oct, [facility] [place] [facility] [address] [id number] [place] [address]- 8023 Oct, [facility] [place] [facility] [address] [id number] [place] [address] 7649 Oct, [facility] [place] [facility] [address] [id number] [place] [address] 0613 Oct, [facility] [place] [facility] [address] [id number] [place] [address]- 0143 Oct, [facility] [place] [facility] [address] [id number] [place] [address]- 8232 Oct, [facility] [place] [facility] [address] [id number] [place] [address]- 2502 Oct, [facility] [place] [facility] [address] [id number] [place] [address]- 6357 Oct, [facility] [place] [facility] [address] [id number] [place] [address]- 5881 Oct, [facility] [place] [facility] [address] [id number] [place] [address]- 0458 Oct, [facility] [place] [facility] [address] [id number] [place] [address]- 4279 Oct, [facility] [place] [facility] [address] [id number] [place] [address]- 8645 30 Sep, 2013 [facility] [place] [facility] [address] [id number] [place] [address]- 4181 30 Sep, 2013 [facility] [place] [facility] [address] [facility] [id number] [place] [address]- 5697 Sep, [facility] [place] [facility] [address] [id number] [place] [address]- 1180 Sep, [facility] [place] [facility] [address] [id number] [place] [address]- 8169 Sep, [facility] [place] [facility] [address] [id number] [place] [address]- 7060 Sep, [facility] [place] [facility] [address] [id number] [place] [address]- 3326 Sep, [facility] [place] [facility] [address] [id number], [place] [address]- 4357 18 Sep, 2013 [facility] [place] [facility] [address] [id number] [place] [address]- 0263 17 Sep, 2013 [facility] [place] [facility] [address] [id number] [place] [address]- 7354 16 Sep, 2013 [facility] [place] [facility] [address] [id number], [place] [address] 6[address] 16 Sep, 2013 [facility] [place] [facility] [address] [id number], [place] [address]- 4283 16 Sep, 2013 [facility] [place] [facility] [address] [id number] [place] [address]- 9864 Sep, [facility] [place] [facility] [address] [id number], [place] [address]- 2543 Sep, [facility] [place] [facility] [address] [id number] [place] [address]- 6043 Sep, [facility] [place] [facility] [address] [id number] [place] [address]- 0215 Sep, [facility] [place] [facility] [address] [id number] [place] [address]- 4260 Sep, [facility] [place] [facility] [address] [id number] [place] [address]- 9141 Sep, [facility] [place] [facility] [address] [id number] [place] [address]- 7445 Sep, [facility] [place] [facility] [address] [id number] [place] [address]- 7923 Sep, [facility] [place] [facility] [address] [id number] [place] [address]- 9160 Sep, [facility] [place] [facility] [address] [id number] [place] [address]- 0595 Sep, [facility] [place] [facility] [address] [id number] [place] [address]- 7554 August, [facility] [place] [facility] [address] [id number] [place] [address]- 0433 August, [facility] [place] [facility] [address] [id number] [place] [address]- 3512 August, [facility] [place] [facility] [address] [id number] [place] [address]- 3638 August, [facility] [place] [facility] [address] [id number] [place] [address]- 5745 August, [facility] [place] [facility] [address] [id number] [place] [address]- 8838 August, [facility] [place] [facility] [address] [id number] [place] [address]- 0754 August, [facility] [place] [facility] [address] [id number] [place] [address]- 3890 August, [facility] [place] [facility] [address] [id number] [place] [address]- 5680 August, [facility] [place] [facility] [address] [id number] [place] [address]- 8690 August, [facility] [address] [id number] [place] [address] 2298 August, [facility] [place] [facility] [address] [id number] [place] [address] August, [facility] [place] [facility] [address] [id number] [place] [address]- 5435 August, [facility] [address] [id number] [place] [address]- 7247 August, [facility] [place] [facility] [address] [id number] [place] [address]- 4587 August, [facility] [address] [id number] [place] [address] 1964 August, [facility] [address] [id number] [place] [address]- 8566 August, [facility] [place] [facility] [address] [id number] [place] [address]- 6953 August, [facility] [place] [facility] [address] [id number] [place] [address]- 0536 Jul, [facility] [place] [facility] [address] [id number] [place] [address]- 0254 Jul, [facility] [place] [facility] [address] [id number] [place] [address]- 8738 Jul, [facility] [place] [facility] [address] [id number] [place] [address]- 1645 Jul, [facility] [place] [facility] [address] [id number] [place] [address]- 2853 Jul, [facility] [place] [facility] [address] [id number] [place] [address]- 7357 Jul, [facility] [place] [facility] [address] [id number] [place] [address]- 5405 22 Jul, 2013 [facility] [place] [facility] [address] [id number] [place] [address]- 0264 22 Jul, 2013 [facility] [place] [facility] [address] [id number] [place] [address]- 1232 22 Jul, 2013 [facility] [place] [facility] [address] [id number] [place] [address]- 7998 Jul, [facility] [place] [facility] [address] [id number] [place] [address]- 4022 Jul, [facility] [place] [facility] [address] [id number] [place] [address]- 8527 18 Jul, 2013 [facility] [place] [facility] [address] [id number] [place] [address]- 0963 18 Jul, 2013 [facility] [place] [facility] [address] [id number] [place] [address]- 4712 17 Jul, 2013 [facility] [place] [facility] [address] [id number] [place] [address]- 5875 17 Jul, 2013 [facility] [place] [facility] [address] [id number] [place] [address]- 6778 17 Jul, 2013 [facility] [place] [facility] [address] [id number] [place] [address]- 4328 17 Jul, 2013 [facility] [place] [facility] [address] [id number] [place] [address]- 8644 16 Jul, 2013 [facility] [place] [facility] [address] [id number] [place] [address]- 2834 16 Jul, 2013 [facility] [place] [facility] [address] [id number] [place] [address]- 4836 15 Jul, 2013 [facility] [place] [facility] [address] [id number] [place] [address]- 8060 15 Jul, 2013 [facility] [place] [facility] [address] [id number] [place] [address]- 8024 14 Jul, 2013 [facility] [place] [facility] [address] [id number] [place] [address]- 9281 14 Jul, 2013 [facility] [address] [id number] [place] [address]- 5984 12 Jul, 2013 [facility] [place] [facility] [address] [id number] [place] [address]- 9384 12 Jul, 2013 [facility] [address] [id number] [place] [address]- 8883 Jul, [facility] [place] [facility] [address] [id number] [place] [address]- 6831 Jul, [facility] [place] [facility] [address] [id number] [place] [address]- 3399 Jul, [facility] [place] [facility] [address] [id number] [place] [address]- 3900 Jul, [facility] [place] [facility] [address] [id number] [place] [address]- 0147 17 Jun, 2013 [facility] [address] [id number] [place] [address]- 8850 17 Jun, 2013 [facility] [place] [facility] [address] [id number] [place] [address]- 2581 17 Jun, 2013 [facility] [address] [id number] [place] [address]- 4786 17 Jun, 2013 [facility] [place] [facility] [address] [id number] [place] [address]- 8647 13 Jun, 2013 [facility] [place] [facility] [address] [id number] [place] [address]- 7376 13 Jun, 2013 [facility] [place] [facility] [address] [id number] [place] [address]- 7591 11 Jun, 2013 [facility] [place] [facility] [address] [id number] [place] [address]- 4589 11 Jun, 2013 [facility] [place] [facility] [address] [id number] [place] [address]- 0919 Jun, [facility] [place] [facility] [address] [id number] [place] [address]- 1940 Jun, [facility] [place] [facility] [address] [id number] [place] [address]- 2477 Jun, [facility] [place] [facility] [address] [id number] [place] [address]- 0785 Jun, [facility] [place] [facility] [address] [id number] [place] [address]- 7286 May, [facility] [place] [facility] [address] [id number] [place] [address]- 4936 May, [facility] [place] [facility] [address] [id number] [place] [address]- 1253 May, [facility] [place] [facility] [address] [facility] [id number] [place] [address]- 6184 May, [facility] [place] [facility] [address] [id number] [place] [address]- 2464 May, [facility] [place] [facility] [address] [id number] [place] [address]- 0125 May, [facility] [place] [facility] [address] [id number] [place] [address]- 2665 May, [facility] [place] [facility] [address] [id number] [place] [address]- 5510 May, [facility] [place] [facility] [address] [id number] [place] [address]- 8624 May, [facility] [place] [facility] [address] [id number] [place] [address]- 1467 May, [facility] [place] [facility] [address] [id number] [place] [address]- 5782 Apr, [facility] [place] [facility] [address] [facility] [id number] [place] [address]- 3576 Apr, [facility] [place] [facility] [address] [id number] [place] [address]- 5975 Apr, [facility] [address] [id number] [place] [address]- 1773 Apr, [facility] [place] [facility] [address] [id number] [place] [address]- 6475 Apr, [facility] [place] [facility] [address] [id number] [place] [address]- 1016 Apr, [facility] [place] [facility] [address] [id number] [place] [address]- 1468 Apr, [facility] [place] [facility] [address] [id number] [place] [address]- 8301 Apr, [facility] [place] [facility] [address] [id number] [place] [address]- 9971 Apr, [facility] [place] [facility] [address] [id number] [place] [address]- 4884 Apr, [facility] [address] [id number] [place] [address]- 2974 Mar, [facility] [place] [facility] [address] [id number] [place] [address]- 2132 Mar, [facility] [place] [facility] [address] [id number] [place] [address]- 7057 Mar, [facility] [place] [facility] [address] [id number] [place] [address]- 5264 Mar, [facility] [place] [facility] [address] [id number] [place] [address]- 0558 Mar, [facility] [place] [facility] [address] [id number] [place] [address]- 5796 Mar, [facility] [place] [facility] [address] [id number] [place] [address]- 8956 Feb, [facility] [place] [facility] [address] [id number] [place] [address]- 8767 Feb, [facility] [place] [facility] [address] [id number] [place] [address]- 2264 Feb, [facility] [place] [facility] [address] [id number] [place] [address]- 6018 Jan, [facility] [place] [facility] [address] [id number] [place] [address]- 7754 Jan, [facility] [place] [facility] [address] [id number] [place] [address]- 0781 Jan, [facility] [place] [facility] [address] [id number] [place] [address]- 9125 Jan, [facility] [place] [facility] [address] [id number] [place] [address]- 2962 Jan, [facility] [place] [facility] [address] [id number] [place] [address]- 0688 Jan, [facility] [place] [facility] [address] [id number], [place] [address]- 1387 Jan, [facility] [place] [facility] [address] [id number] [place] [address]- 6641 Jan, [facility] [place] [facility] [address] [id number], [place] [address]- 7741 Jan, [facility] [place] [facility] [address] [id number], [place] [address]- 3204 Jan, [facility] [place] [facility] [address] [id number], [place] [address]- 4764 30 Dec, 2012 [facility] [place] [facility] [address] [id number] [place] [address]- 2380 25 Dec, 2012 [facility] [place] [facility] [address] [id number], [place] [address]- 4425 Dec, [facility] [place] [facility] [address] [id number], [place] [address]- 3595 Dec, [facility] [place] [facility] [address] [id number] [place] [address]- 1361 Dec, [facility] [address] [id number] [place] [address]- 3044 Dec, [facility] [place] [facility] [address] [id number] [place] [address]- 4127 Nov, [facility] [place] [facility] [address] [id number] [place] [address]- 5758 Nov, [facility] [place] [facility] [address] [id number] [place] [address]- 3760 Nov, [facility] [place] [facility] [address] [id number] [place] [address]- 1084 Nov, [facility] [place] [facility] [address] [id number] [place] [address]- 2744 Nov, [facility] [place] [facility] [address] [id number] [place] [address]- 9900 Nov, [facility] [place] [facility] [address] [id number] [place] [address]- 7791 Nov, [facility] [place] [facility] [address] [id number] [place] [address]- 5082 Nov, [facility] [place] [facility] [address] [id number] [place] [address]- 5384 Nov, [facility] [place] [facility] [address] [id number] [place] [address]- 6749 Nov, [facility] [place] [facility] [address] [id number] [place] [address]- 2545 Nov, [facility] [place] [facility] [address] [id number] [place] [address]- 6595 Nov, [facility] [place] [facility] [address] [id number] [place] [address]- 3213 Oct, [facility] [place] [facility] [address] [id number] [place] [address]- 3778 Oct, [facility] [place] [facility] [address] [id number] [place] [address]- 2964 08 Oct, 2012 [facility] [address] [id number] [place] [address]- 5627 Sep, [facility] [place] [facility] [address] [id number] [place] [address]- 1993 Sep, [facility] [address] [id number] [place] [address]- 2835 Sep, [facility] [address] [id number] [place] [address]- 3132 August, [facility] [address] [id number] [place] [address]- 8148 August, [facility] [address] [id number] [place] [address]- 7586 August, [facility] [address] [id number] [place] [address]- 4900 August, [facility] [address] [id number] [place] [address]- 4342 August, [facility] [address] [id number] [place] [address]- 5668 August, [facility] [address] [id number] [place] [address]- 3140 Jul, [facility] [place] [facility] [address] [id number] [place] [address]- 0331 15 Jul, 2012 [facility] [place] [facility] [address] [id number] [place] [address]- 6963 11 Jul, 2012 [facility] [place] [facility] [address] [id number] [place] [address]- 5289 10 Jul, 2012 [facility] [place] [facility] [address] [id number] [place] [address]- 5149 04 Jul, 2012 [facility] [place] [facility] [address] [id number] [place] [address]- 0746 04 Jul, 2012 [facility] [address] [id number] [place] [address]- 0050 2012 [facility] [address] [id number] [place] [address]- 1922 20 Jun, 2012 [facility] [address] [facility] [id number] [place] [address]- 3198 18 Jun, 2012 [facility] [address] [id number] [place] [address] 14 Jun, 2012 [facility] [address] [id number] [place] [address] 04 Jun, 2012 [facility] [address] [facility] [id number] [place] [address] 13 May, 2012 [facility] [address] [facility] [id number] [place] [address] 12 May, 2012 [facility] [address] [id number] [place] [address] 11 May, 2012 [facility] [address] [id number] [place] [address] 08 May, 2012 [facility] [address] [facility] [id number] [place] [address] 17 Apr, 2012 [facility] [address] [id number] [place] [address] Apr, [facility] [place] [facility] [address] [id number] [place] [address] Apr, [facility] [place] [facility] [address] [id number] [place] [address] Mar, [facility] [place] [facility] [address] [id number] [place] [address] Mar, [facility] [place] [facility] [address] [facility] [id number] [place] [address] Mar, [facility] [place] [facility] [address] [id number] [place] [address] 29 Mar, 2012 [facility] [place] [facility] [address] [id number] [place] [address] Mar, [facility] [place] [facility] [address] [id number] [place] [address] Mar, [facility] [place] [facility] [address] [id number] [place] [address] Mar, [facility] [place] [facility] [address] [id number] [place] [address] Mar, [facility] [place] [facility] [address] [id number] [place] [address] Feb, [facility] [place] [facility] [address] [id number] [place] [address] Feb, [facility] [place] [facility] [address] [id number] [place] [address] Feb, [facility] [place] [facility] [address] [id number] [place] [address] Feb, [facility] [place] [facility] [address] [id number] [place] [address] 47[address] Feb, [facility] [place] [facility] [address] [id number] [place] [address] Feb, [facility] [place] [facility] [address] [id number] [place] [address] Feb, [facility] [place] [facility] [address] [id number] [place] [address] Feb, [facility] [place] [facility] [address] [id number] [place] [address] Feb, [facility] [place] [facility] [address] [id number] [place] [address] Feb, [facility] [place] [facility] [address] [id number] [place] [address] Feb, [facility] [place] [facility] [address] [id number] [place] [address] Feb, [facility] [place] [facility] [address] [id number] [place] [address] Feb, [facility] [place] [facility] [address] [id number] [place] [address] 46[address] Feb, [facility] [place] [facility] [address] [id number] [place] [address] Feb, [facility] [place] [facility] [address] [id number] [place] [address] 8935 Feb, [facility] [place] [facility] [address] [id number] [place] [address] Feb, [facility] [place] [facility] [address] [facility] [id number] [place] [address] 96[address] Feb, [facility] [place] [facility] [address] [id number], [place] [address] Jan, [facility] [place] [facility] [address] [id number] [place] [address] Jan, [facility] [place] [facility] [address] [facility] [id number], [place] [address] Jan, [facility] [place] [facility] [address] [id number], [place] [address] Jan, [facility] [place] [facility] [address] [id number], [place] [address] Jan, [facility] [place] [facility] [address] [id number] [place] [address]- 2449 19 Jan, 2012 [facility] [place] [facility] [address] [id number], [place] [address] Jan, [facility] [place] [facility] [address] [facility] [id number], [place] [address] Jan, [facility] [place] [facility] [address] [id number] [place] [address]165 15 Jan, 2012 [facility] [place] [facility] [address] [id number] [place] [address]121 15 Jan, 2012 [facility] [place] [facility] [address] [id number] [place] [address]- 2096 11 Jan, 2012 [facility] [place] [facility] [address] [id number] [place] [address] 11 Jan, 2012 [facility] [place] [facility] [address] [id number] [place] [address] 8397 10 Jan, 2012 [facility] [place] [facility] [address] [id number] [place] [address] 09 Jan, 2012 [facility] [place] [facility] [address] [id number] [place] [address] 02 Jan, 2012 [facility] [place] [facility] [address] [id number] [place] [address] 7613 29 Dec, 2011 [facility] [place] [facility] [address] [id number] [place] [address]- 7744 28 Dec, 2011 [facility] [place] [facility] [address] [id number] [place] [address] 27 Dec, 2011 [facility] [place] [facility] [address] [id number] [place] [address]- [address]44 26 Dec, 2011 [facility] [place] [facility] [address] [id number] [place] [address]- 1154 24 Nov, 2011 [facility] [place] [facility] [address] [id number] [place] [address]- [address]40 Nov, [facility] [place] [facility] [address] [id number] [place] [address]- [address] Nov, [facility] [place] [facility] [address] [id number] [place] [address]- 9[address] Nov, [facility] [place] [facility] [address] [id number] [place] [address] 4708 Nov, [facility] [place] [facility] [address] [id number] [place] [address]- [address] Nov, [facility] [place] [facility] [address] [id number] [place] [address]- [address] Nov, [facility] [place] [facility] [address] [id number] [place] [address]- [address] Nov, [facility] [place] [facility] [address] [id number] [place] [address]- [address] Nov, [facility] [place] [facility] [address] [id number] [place] [address]- [address]656 Nov, [facility] [place] [facility] [address] [id number] [place] [address]- 8[address] Nov, [facility] [place] [facility] [address] [address] [id number] [place] [address] Oct, [facility] [place] [facility] [address] [id number] [place] [address] Oct, [facility] [place] [facility] [address] [id number] [place] [address] Oct, [facility] [place] [facility] [address] [id number] [place] [address] Oct, [facility] [place] [facility] [address] [id number] [place] [address] Oct, [facility] [place] [facility] [address] [id number] [place] [address] Oct, [facility] [place] [facility] [address] [id number] [place] [address] Oct, [facility] [place] [facility] [address] [id number] [place] [address] Oct, [facility] [place] [facility] [address] [id number] [place] [address] Sep, [facility] [place] [facility] [address] [id number] [place] [address] Sep, [facility] [place] [facility] [address] [id number] [place] [address] Sep, [facility] [place] [facility] [address] [id number] [place] [address] Sep, [facility] [place] [facility] [address] [id number] [place] [address] Sep, [facility] [place] [facility] [address] [id number] [place] [address] Sep, [facility] [place] [facility] [address] [id number] [place] [address] Sep, [facility] [place] [facility] [address] [id number] [place] [address] August, [facility] [place] [facility] [address] [id number] [place] [address] August, [facility] [place] [facility] [address] [id number] [place] [address] August, [facility] [place] [facility] [address] [id number] [place] [address] 2019 August, [facility] [place] [facility] [address] [id number] [place] [address] August, [facility] [place] [facility] [address] [id number] [place] [address] August, [facility] [place] [facility] [address] [id number] [place] [address]27 August, [facility] [place] [facility] [address] [id number] [place] [address] August, [facility] [place] [facility] [address] [id number] [place] [address] Jul, [facility] [place] [facility] [address] [id number] [place] [address] 84[address] Jul, [facility] [place] [facility] [address] [id number] [place] [address] 13 Jul, 2011 [facility] [address] [id number] [place] [address] 11 Jul, 2011 [facility] [address] [id number] [place] [address] 05 Jul, 2011 [facility] [address] [id number] [place] [address] 28 Jun, 2011 [facility] [address] [id number] [place] [address] 2011 [facility] [address] [id number] [place] [address] 20 Jun, 2011 [facility] [address] [id number] [place] [address]36 19 Jun, 2011 [facility] [address] [id number] [place] [address] Jun, [facility] [address] [id number] [place] [address] 4721 12 Jun, 2011 [facility] [address] [id number] [place] [address] Jun, [facility] [address] [id number] [place] [address] 07 Jun, 2011 [facility] [place] [facility] [address] [id number] [place] [address] Jun, [facility] [address] [id number] [place] [address] 27 May, 2011 [facility] [place] [facility] [address] [id number] [place] [address] 24 May, 2011 [facility] [address] [id number] [place] [address] May, [facility] [place] [facility] [address] [id number] [place] [address] May, [facility] [place] [facility] [address] [id number] [place] [address]168 May, [facility] [place] [facility] [address] [id number] [place] [address] 9066 May, [facility] [place] [facility] [address] [id number] [place] [address]- 1236 May, [facility] [place] [facility] [address] [id number] [place] [address]365 May, [facility] [place] [facility] [address] [id number] [place] [address] Apr, [facility] [place] [facility] [address] [id number] [place] [address] 8537 Apr, [facility] [place] [facility] [address] [id number] [place] [address] 0683 Apr, [facility] [place] [facility] [address] [id number] [place] [address]- 5692 Apr, [facility] [place] [facility] [address] [id number] [place] [address]- 6769 Apr, [facility] [place] [facility] [address] [id number] [place] [address]- 8518 Apr, [facility] [place] [facility] [address] [id number] [place] [address] 0410 Mar, [facility] [place] [facility] [address] [id number] [place] [address]- [address] Mar, [facility] [place] [facility] [address] [id number] [place] [address] Mar, [facility] [place] [facility] [address] [id number] [place] [address]- 0796 Mar, [facility] [place] [facility] [address] [id number] [place] [address]- 5091 Mar, [facility] [place] [facility] [address] [id number] [place] [address]- 7724 13 Mar, 2011 [facility] [address] [id number] [place] [address] 6540 Mar, [facility] [place] [facility] [address] [id number] [place] [address] 18[address] Mar, [facility] [address] [id number] [place] [address] 8448 Mar, [facility] [address] [id number] [place] [address]- 9343 Mar, [facility] [address] [id number] [place] [address]- 6426 Mar, [facility] [address] [id number] [place] [address] 1195 Mar, [facility] [address] [id number] [place] [address]- 7971 Mar, [facility] [address] [id number] [place] [address]15 Feb, [facility] [address] [facility] [id number] [place] [address] 3993 Feb, [facility] [address] [facility] [id number] [place] [address]- 9826 Feb, [facility] [place] [facility] [address] [id number] [place] [address]- 4[address] Feb, [facility] [place] [facility] [address] [id number] [place] [address] 2339 Feb, [facility] [place] [facility] [address] [id number] [place] [address]- 8462 Feb, [facility] [place] [facility] [address] [facility] [id number] [place] [address]- 8684 Feb, [facility] [place] [facility] [address] [facility] [id number] [place] [address]- 4687 Jan, [facility] [address] [facility] [id number], [place] [address] Jan, [facility] [address] [facility] [id number], [place] [address] Jan, [facility] [address] [facility] [id number], [place] [address] Nov, [facility] [address] [facility] [id number], [place] [address]- 79[address] Mar, [facility] [address] [facility] [id number], [place] [address]- [address] Mar, [facility] [address] [facility] [id number], [place] [address]- 56[address] Mar, [facility] [id number], [place] [address]33 Mar, [facility] [id number], [place] [address] 8710 Mar, [facility] [id number], [place] [address] 9477 Feb, [facility] [id number], [place] [address]- 44[address] Feb, [facility] [address] [id number], [place] [address]- 1266 Feb, [facility] [id number], [place] [address]- 7065 Feb, [facility] [address] [id number], [place] [address]- 8[address] Feb, [facility] [id number], [place] [address] Feb, IMMUNIZATIONS No Known Immunizations SOCIAL HISTORY Never Assessed REASON FOR VISIT Lab results PLAN OF CARE VITAL SIGNS MEDICATIONS Unknown [...]
--- OUTSIDE RECORDS SUMMARY | 2017-12-22 05:03 | XMS REPORT ---
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 Jun, [facility] [place] [facility] [address] [id number] [place] [address]- 2705 Jun, [facility] [place] [facility] [address] [id number] [place] [address]- 9406 Jun, [facility] [place] [facility] [address] [id number] [place] [address]- 6181 Jun, [facility] [place] [facility] [address] [id number] [place] [address]- 6103 Jun, [facility] [place] [facility] [address] [id number] [place] [address]- 0115 23 Jun, 2014 [facility] [place] [facility] [address] [id number] [place] [address]- 8307 23 Jun, 2014 [facility] [place] [facility] [address] [id number] [place] [address]- 1819 19 Jun, 2014 [facility] [place] [facility] [address] [id number] [place] [address]- 6139 19 Jun, 2014 [facility] [place] [facility] [address] [id number] [place] [address]- 1785 19 Jun, 2014 [facility] [place] [facility] [address] [id number] [place] [address]- 3538 19 Jun, 2014 [facility] [place] [facility] [address] [id number] [place] [address]- 1468 18 Jun, 2014 [facility] [place] [facility] [address] [id number] [place] [address]- 1726 18 Jun, 2014 [facility] [place] [facility] [address] [id number] [place] [address]- 7977 18 Jun, 2014 [facility] [place] [facility] [address] [id number] [place] [address]- 0114 18 Jun, 2014 [facility] [place] [facility] [address] [id number] [place] [address]- 1007 17 Jun, 2014 [facility] [place] [facility] [address] [id number] [place] [address]- 0676 17 Jun, 2014 [facility] [place] [facility] [address] [id number] [place] [address]- 0639 17 Jun, 2014 [facility] [place] [facility] [address] [id number] [place] [address]- 4253 17 Jun, 2014 [facility] [place] [facility] [address] [id number] [place] [address]- 6125 13 Jun, 2014 [facility] [place] [facility] [address] [id number] [place] [address]- 7134 13 Jun, 2014 [facility] [place] [facility] [address] [id number] [place] [address]- 4136 Jun, [facility] [place] [facility] [address] [id number] [place] [address]- 5871 Jun, [facility] [place] [facility] [address] [id number] [place] [address]- 6259 Jun, [facility] [place] [facility] [address] [id number] [place] [address]- 6973 Jun, [facility] [place] [facility] [address] [id number] [place] [address]- 3582 Jun, [facility] [place] [facility] [address] [id number] [place] [address]- 9871 Jun, [facility] [place] [facility] [address] [facility] [id number] [place] [address]- 1086 Jun, [facility] [place] [facility] [address] [id number] [place] [address]- 3681 Jun, [facility] [place] [facility] [address] [id number] [place] [address]- 6765 Jun, [facility] [place] [facility] [address] [facility] [id number] [place] [address]- 8051 Jun, [facility] [place] [facility] [address] [id number] [place] [address]- 6330 Jun, [facility] [place] [facility] [address] [id number] [place] [address]- 5173 Jun, [facility] [place] [facility] [address] [id number] [place] [address]- 4938 May, [facility] [place] [facility] [address] [id number] [place] [address]- 2404 May, [facility] [place] [facility] [address] [facility] [id number] [place] [address]- 0824 May, [facility] [place] [facility] [address] [id number] [place] [address]- 0455 May, 2014 [facility] [place] [facility] [address] [id number] [place] [address]- 5246 May, 2014 [facility] [place] [facility] [address] [id number] [place] [address] 2546 May, 2014 [facility] [place] [facility] [address] [id number] [place] [address]- 8274 May, 2014 [facility] [place] [facility] [address] [id number] [place] [address]- 9077 May, 2014 [facility] [place] [facility] [address] [id number] [place] [address]- 5126 May, 2014 [facility] [place] [facility] [address] [facility] [id number] [place] [address]- 3100 May, 2014 [facility] [place] [facility] [address] [id number] [place] [address]- 3368 May, 2014 [facility] [place] [facility] [address] [facility] [id number] [place] [address]- 3202 May, 2014 [facility] [place] [facility] [address] [facility] [id number] [place] [address]- 3852 May, 2014 [facility] [place] [facility] [address] [facility] [id number] [place] [address]- 6161 May, 2014 [facility] [place] [facility] [address] [id number] [address]- 2549 May, 2014 [facility] [place] [facility] [address] [facility] [id number] [place] [address]- 6643 May, 2014 [facility] [place] [facility] [address] [facility] [id number] [place] [address]- 9368 Apr, [facility] [place] [facility] [address] [facility] [id number] [place] [address]- 8255 Apr, [facility] [place] [facility] [address] [facility] [id number] [place] [address]- 7034 Apr, [facility] [address] [id number] [place] [address]- 9794 Apr, [facility] [place] [facility] [address] [id number] [place] [address]- 1351 Apr, [facility] [place] [facility] [address] [id number] [place] [address]- 2911 Apr, [facility] [place] [facility] [address] [id number] [place] [address]- 3386 Apr, [facility] [place] [facility] [address] [id number] [place] [address]- 9002 Apr, [facility] [place] [facility] [address] [id number] [place] [address]- 5089 Apr, [facility] [place] [facility] [address] [id number] [place] [address]- 5116 Apr, [facility] [place] [facility] [address] [id number] [place] [address]- 7900 Apr, [facility] [place] [facility] [address] [id number] [place] [address]- 1877 Apr, [facility] [place] [facility] [address] [id number] [place] [address]- 5604 Apr, [facility] [place] [facility] [address] [id number] [place] [address]- 9717 Apr, [facility] [place] [facility] [address] [id number] [place] [address]- 9459 Apr, [facility] [place] [facility] [address] [id number] [place] [address]- 8071 Mar, [facility] [place] [facility] [address] [id number] [place] [address]- 5480 Mar, [facility] [place] [facility] [address] [id number] [place] [address]- 8807 Mar, [facility] [place] [facility] [address] [id number] [place] [address]- 3412 Mar, [facility] [place] [facility] [address] [id number] [place] [address]- 8258 Mar, [facility] [place] [facility] [address] [id number] [place] [address]- 5441 Mar, [facility] [place] [facility] [address] [id number] [place] [address]- 9714 Mar, [facility] [place] [facility] [address] [id number] [place] [address]- 9798 Mar, [facility] [place] [facility] [address] [id number] [place] [address]- 1559 Mar, [facility] [place] [facility] [address] [id number] [place] [address]- 2093 Mar, [facility] [place] [facility] [address] [id number] [place] [address]- 8038 Mar, [facility] [place] [facility] [address] [id number] [place] [address]- 4108 Mar, [facility] [place] [facility] [address] [id number] [place] [address]- 3395 Mar, [facility] [place] [facility] [address] [id number] [place] [address]- 9700 Mar, [facility] [place] [facility] [address] [id number] [place] [address]- 4716 Mar, [facility] [place] [facility] [address] [id number] [place] [address]- 1628 Mar, [facility] [place] [facility] [address] [id number] [place] [address]- 4961 Mar, [facility] [place] [facility] [address] [id number] [place] 6442 Mar, [facility] [place] [facility] [address] [id number] [place] [address]- 5805 Feb, [facility] [place] [facility] [address] [id number] [place] [address]- 6238 Feb, [facility] [place] [facility] [address] [id number] [place] [address] Feb, [facility] [place] [facility] [address] [id number] [place] [address] Feb, [facility] [place] [facility] [address] [id number] [place] [address] Feb, [facility] [place] [facility] [address] [id number] [place] [address] Feb, [facility] [place] [facility] [address] [id number] [place] [address] Feb, [facility] [place] [facility] [address] [id number] [place] [address] Feb, [facility] [place] [facility] [address] [id number] [place] [address] Jan, [facility] [place] [facility] [address] [id number] [place] [address] Jan, [facility] [place] [facility] [address] [id number] [place] [address] Jan, [facility] [place] [facility] [address] [id number], [place] [address] Jan, [facility] [place] [facility] [address] [id number], [place] [address] 31 Jan, 2014 [facility] [place] [facility] [address] [id number] [place] [address] 31 Jan, 2014 [facility] [place] [facility] [address] [id number] [place] [address] Jan, [facility] [place] [facility] [address] [id number] [place] [address] Jan, [facility] [place] [facility] [address] [id number] [place] [address] 24 Jan, 2014 [facility] [place] [facility] [address] [id number] [place] [address] 24 Jan, 2014 [facility] [place] [facility] [address] [id number] [place] [address] Jan, [facility] [place] [facility] [address] [id number] [place] [address] Jan, [facility] [place] [facility] [address] [id number] [place] [address] Jan, [facility] [place] [facility] [address] [id number] [place] [address] Jan, [facility] [place] [facility] [address] [id number] [place] [address] 16 Jan, 2014 [facility] [place] [facility] [address] [id number] [place] [address]366 16 Jan, 2014 [facility] [place] [facility] [address] [id number] [place] [address] Jan, [facility] [place] [facility] [address] [id number] [place] [address] 13 Jan, 2014 [facility] [place] [facility] [address] [id number] [place] [address] 29 Dec, 2013 [facility] [place] [facility] [address] [id number] [place] [address]42 29 Dec, 2013 [facility] [place] [facility] [address] [id number] [place] [address] 26 Sep, 2013 [facility] [place] [facility] [address] [id number] [place] [address]4 26 Dec, 2013 [facility] [place] [facility] [address] [id number] [place] [address] 26 Dec, 2013 [facility] [place] [facility] [address] [id number] [place] [address] 26 Dec, 2013 [facility] [place] [facility] [address] [id number] [place] [address]184 23 Dec, 2013 [facility] [place] [facility] [address] [id number] [place] [address] 23 Dec, 2013 [facility] [place] [facility] [address] [id number] [place] [address] 22 Dec, 2013 [facility] [place] [facility] [address] [id number] [place] [address] 2548 22 Dec, 2013 [facility] [place] [facility] [address] [id number] [place] [address]483 16 Dec, 2013 [facility] [place] [facility] [address] [id number] [place] [address]- [address]99 16 Dec, 2013 [facility] [place] [facility] [address] [id number] [place] [address]95 15 Dec, 2013 [facility] [place] [facility] [address] [id number] [place] [address] 15 Dec, 2013 [facility] [place] [facility] [address] [id number] [place] [address] 09 Dec, 2013 [facility] [place] [facility] [address] [id number] [place] [address] Dec, [facility] [place] [facility] [address] [id number] [place] [address] Dec, [facility] [place] [facility] [address] [id number] [place] [address] Nov, [facility] [place] [facility] [address] [id number] [place] [address] Nov, [facility] [place] [facility] [address] [id number] [place] [address] Nov, [facility] [place] [facility] [address] [id number] [place] [address] Nov, [facility] [place] [facility] [address] [id number] [place] [address] Nov, [facility] [place] [facility] [address] [id number] [place] [address] Nov, [facility] [place] [facility] [address] [id number] [place] [address] Nov, [facility] [place] [facility] [address] [id number] [place] [address] Nov, [facility] [place] [facility] [address] [id number] [place] [address] Nov, [facility] [place] [facility] [address] [id number] [place] [address] Nov, [facility] [place] [facility] [address] [id number] [place] [address] Nov, [facility] [place] [facility] [address] [id number] [place] [address]16 Nov, [facility] [place] [facility] [address] [id number] [place] [address] Nov, [facility] [place] [facility] [address] [id number] [place] [address] Nov, [facility] [place] [facility] [address] [id number] [place] [address] 2948 Nov, [facility] [place] [facility] [address] [id number] [place] [address]- 9637 Nov, [facility] [place] [facility] [address] [id number] [place] [address]- 1307 Nov, [facility] [place] [facility] [address] [id number] [place] [address]- 0576 Nov, [facility] [place] [facility] [address] [id number] [place] [address]- 1654 Nov, [facility] [place] [facility] [address] [id number] [place] [address]- 7037 Nov, [facility] [place] [facility] [address] [id number] [facility] [place] [address] Nov, [facility] [place] [facility] [address] [id number] [facility] [place] [address] 5[address] Oct, [facility] [place] [facility] [address] [id number] [place] [address]- 9334 Oct, [facility] [place] [facility] [address] [id number] [place] [address]- 4909 Oct, [facility] [place] [facility] [address] [id number] [place] [address]- 3503 Oct, [facility] [place] [facility] [address] [id number] [place] [address]- 2818 Oct, [facility] [place] [facility] [address] [id number] [place] [address]- 9101 Oct, [facility] [place] [facility] [address] [id number] [place] [address]- 0467 Oct, [facility] [place] [facility] [address] [id number] [place] [address]- 4399 Oct, [facility] [place] [facility] [address] [id number] [place] [address]- 7492 Oct, [facility] [place] [facility] [address] [id number] [place] [address]- 9721 Oct, [facility] [place] [facility] [address] [id number] [place] [address]- 3923 Oct, [facility] [place] [facility] [address] [id number] [place] [address]- 5092 Oct, [facility] [place] [facility] [address] [id number] [place] [address]- 4307 Oct, [facility] [place] [facility] [address] [id number] [place] [address]- 4197 Oct, [facility] [place] [facility] [address] [id number] [place] [address]- 7268 Oct, [facility] [place] [facility] [address] [id number] [place] [address]- 0544 30 Sep, 2013 [facility] [place] [facility] [address] [id number] [place] [address]- 7753 30 Sep, 2013 [facility] [place] [facility] [address] [facility] [id number] [place] [address]- 2307 Sep, [facility] [place] [facility] [address] [id number] [place] [address]- 8676 Sep, [facility] [place] [facility] [address] [id number] [place] [address]- 2249 Sep, [facility] [place] [facility] [address] [id number] [place] [address]- 6442 Sep, [facility] [place] [facility] [address] [id number] [place] [address]- 1738 Sep, [facility] [place] [facility] [address] [id number] [address]- 4[address] 18 Sep, 2013 [facility] [place] [facility] [address] [id number] [place] [address]- 5224 17 Sep, 2013 [facility] [place] [facility] [address] [id number] [place] [address]- 2983 16 Sep, 2013 [facility] [place] [facility] [address] [id number], [place] [address]- 2872 16 Sep, 2013 [facility] [place] [facility] [address] [id number], [place] [address]- 1934 16 Sep, 2013 [facility] [place] [facility] [address] [id number] [place] [address]- 3861 Sep, [facility] [place] [facility] [address] [id number], [place] [address]- 9560 Sep, [facility] [place] [facility] [address] [id number] [place] [address]- 4089 Sep, [facility] [place] [facility] [address] [id number] [place] [address]- 3373 Sep, [facility] [place] [facility] [address] [id number] [place] [address]- 9664 Sep, [facility] [place] [facility] [address] [id number] [place] [address]- 5781 Sep, [facility] [place] [facility] [address] [id number] [place] [address]- 8039 Sep, [facility] [place] [facility] [address] [id number] [place] [address]- 3271 Sep, [facility] [place] [facility] [address] [id number] [place] [address]- 0001 Sep, [facility] [place] [facility] [address] [id number] [place] [address]- 0634 Sep, [facility] [place] [facility] [address] [id number] [place] [address]- 8442 August, [facility] [place] [facility] [address] [id number] [place] [address]- 6245 August, [facility] [place] [facility] [address] [id number] [place] [address]- 2410 August, [facility] [place] [facility] [address] [id number] [place] [address]- 4844 August, [facility] [place] [facility] [address] [id number] [place] [address]- 2778 August, [facility] [place] [facility] [address] [id number] [place] [address]- 5525 August, [facility] [place] [facility] [address] [id number] [place] [address]- 5626 August, [facility] [place] [facility] [address] [id number] [place] [address]- 7240 August, [facility] [place] [facility] [address] [id number] [place] [address]- 5888 August, [facility] [place] [facility] [address] [id number] [place] [address]- 9536 August, [facility] [address] [id number] [place] [address]- 1907 August, [facility] [place] [facility] [address] [id number] [place] [address] August, [facility] [place] [facility] [address] [id number] [place] [address]- 1899 August, [facility] [address] [id number] [place] [address]- 7092 August, [facility] [place] [facility] [address] [id number] [place] [address]- 3964 August, [facility] [address] [id number] [place] [address]- 7873 August, [facility] [address] [id number] [place] [address]- 2496 August, [facility] [place] [facility] [address] [id number] [place] [address]- 5344 August, [facility] [place] [facility] [address] [id number] [place] [address]- 2812 Jul, [facility] [place] [facility] [address] [id number] [place] [address]- 6326 Jul, [facility] [place] [facility] [address] [id number] [place] [address]- 6997 Jul, [facility] [place] [facility] [address] [id number] [place] [address]- 2813 Jul, [facility] [place] [facility] [address] [id number] [place] [address]- 4029 Jul, [facility] [place] [facility] [address] [id number] [place] [address]- 1376 Jul, [facility] [place] [facility] [address] [id number] [place] [address]- 2902 22 Jul, 2013 [facility] [place] [facility] [address] [id number] [place] [address]- 1168 22 Jul, 2013 [facility] [place] [facility] [address] [id number] [place] [address]- 8833 22 Jul, 2013 [facility] [place] [facility] [address] [id number] [place] [address]- 2651 Jul, [facility] [place] [facility] [address] [id number] [place] [address]- 1276 Jul, [facility] [place] [facility] [address] [id number] [place] [address]- 7066 18 Jul, 2013 [facility] [place] [facility] [address] [id number] [place] [address]- 5010 18 Jul, 2013 [facility] [place] [facility] [address] [id number] [place] [address]- 7561 17 Jul, 2013 [facility] [place] [facility] [address] [id number] [place] [address]- 7650 17 Jul, 2013 [facility] [place] [facility] [address] [id number] [place] [address]- 3376 17 Jul, 2013 [facility] [place] [facility] [address] [id number] [place] [address]- 6039 17 Jul, 2013 [facility] [place] [facility] [address] [id number] [place] [address]- 7209 16 Jul, 2013 [facility] [place] [facility] [address] [id number] [place] [address]- 8689 16 Jul, 2013 [facility] [place] [facility] [address] [id number] [place] [address]- 1175 15 Jul, 2013 [facility] [place] [facility] [address] [id number] [place] [address]- 2462 15 Jul, 2013 [facility] [place] [facility] [address] [id number] [place] [address]- 2792 14 Jul, 2013 [facility] [place] [facility] [address] [id number] [place] [address]- 3435 14 Jul, 2013 [facility] [address] [id number] [place] [address]- 2616 12 Jul, 2013 [facility] [place] [facility] [address] [id number] [place] [address]- 9738 12 Jul, 2013 [facility] [address] [id number] [place] [address]- 0114 Jul, [facility] [place] [facility] [address] [id number] [place] [address]- 9741 Jul, [facility] [place] [facility] [address] [id number] [place] [address]- 6296 Jul, [facility] [place] [facility] [address] [id number] [place] [address]- 9374 Jul, [facility] [place] [facility] [address] [id number] [place] [address]- 0297 17 Jun, 2013 [facility] [address] [id number] [place] [address]- 2574 17 Jun, 2013 [facility] [place] [facility] [address] [id number] [place] [address]- 6221 17 Jun, 2013 [facility] [address] [id number] [place] [address]- 2730 17 Jun, 2013 [facility] [place] [facility] [address] [id number] [place] [address]- 9473 13 Jun, 2013 [facility] [place] [facility] [address] [id number] [place] [address]- 5493 13 Jun, 2013 [facility] [place] [facility] [address] [id number] [place] [address]- 0427 11 Jun, 2013 [facility] [place] [facility] [address] [id number] [place] [address]- 5088 11 Jun, 2013 [facility] [place] [facility] [address] [id number] [place] [address]- 0894 Jun, [facility] [place] [facility] [address] [id number] [place] [address]- 7810 Jun, [facility] [place] [facility] [address] [id number] [place] [address]- 3541 Jun, [facility] [place] [facility] [address] [id number] [place] [address]- 1707 Jun, [facility] [place] [facility] [address] [id number] [place] [address]- 3049 May, [facility] [place] [facility] [address] [id number] [place] [address]- 2553 May, [facility] [place] [facility] [address] [id number] [place] [address]- 3591 May, [facility] [place] [facility] [address] [facility] [id number] [place] [address]- 2403 May, [facility] [place] [facility] [address] [id number] [place] [address]- 5577 May, [facility] [place] [facility] [address] [id number] [place] [address]- 9642 May, [facility] [place] [facility] [address] [id number] [place] [address]- 1207 May, [facility] [place] [facility] [address] [id number] [place] [address]- 3346 May, [facility] [place] [facility] [address] [id number] [place] [address]- 5424 May, [facility] [place] [facility] [address] [id number] [place] [address]- 5658 May, [facility] [place] [facility] [address] [id number] [place] [address]- 0079 Apr, [facility] [place] [facility] [address] [facility] [id number] [place] [address]- 9106 Apr, [facility] [place] [facility] [address] [id number] [place] [address]- 2997 Apr, [facility] [address] [id number] [place] [address]- 6381 Apr, [facility] [place] [facility] [address] [id number] [place] [address]- 9765 Apr, [facility] [place] [facility] [address] [id number] [place] [address]- 0189 Apr, [facility] [place] [facility] [address] [id number] [place] [address]- 7508 Apr, [facility] [place] [facility] [address] [id number] [place] [address]- 1594 Apr, [facility] [place] [facility] [address] [id number] [place] [address]- [address], [facility] [place] [facility] [address] [id number] [place] [address]- [address], [facility] [address] [id number] [place] [address]- 8341 Mar, [facility] [place] [facility] [address] [id number] [place] [address]- 3054 Mar, [facility] [place] [facility] [address] [id number] [place] [address]- 4518 Mar, [facility] [place] [facility] [address] [id number] [place] [address]- 6042 Mar, [facility] [place] [facility] [address] [id number] [place] [address]- 9378 Mar, [facility] [place] [facility] [address] [id number] [place] [address]- 1196 Mar, [facility] [place] [facility] [address] [id number] [place] [address]- 5576 Feb, [facility] [place] [facility] [address] [id number] [place] [address]- 4287 Feb, [facility] [place] [facility] [address] [id number] [place] [address]- 2780 Feb, [facility] [place] [facility] [address] [id number] [place] [address]- 3769 Jan, [facility] [place] [facility] [address] [id number] [place] [address]- 1203 Jan, [facility] [place] [facility] [address] [id number] [place] [address]- 8671 Jan, [facility] [place] [facility] [address] [id number] [place] [address]- 8990 Jan, [facility] [place] [facility] [address] [id number] [place] [address]- 6626 Jan, [facility] [place] [facility] [address] [id number] [place] [address]- 5925 Jan, [facility] [place] [facility] [address] [id number], [place] [address]- 9979 Jan, [facility] [place] [facility] [address] [id number] [place] [address]- 4390 Jan, [facility] [place] [facility] [address] [id number], [place] [address]- 7493 Jan, [facility] [place] [facility] [address] [id number], [place] [address]- 8361 Jan, [facility] [place] [facility] [address] [id number], [place] [address]- 2835 30 Dec, 2012 [facility] [place] [facility] [address] [id number] [place] [address]- 4838 25 Dec, 2012 [facility] [place] [facility] [address] [id number], [place] [address]- 0154 Dec, [facility] [place] [facility] [address] [id number], [place] [address]- 6763 Dec, [facility] [place] [facility] [address] [id number] [place] [address]- 7306 Dec, [facility] [address] [id number] [place] [address]- 6194 Dec, [facility] [place] [facility] [address] [id number] [place] [address]- 4323 Nov, [facility] [place] [facility] [address] [id number] [place] [address]- 2361 Nov, [facility] [place] [facility] [address] [id number] [place] [address]- 6640 Nov, [facility] [place] [facility] [address] [id number] [place] [address]- 9147 Nov, [facility] [place] [facility] [address] [id number] [place] [address]- 8426 Nov, [facility] [place] [facility] [address] [id number] [place] [address]- 1630 Nov, [facility] [place] [facility] [address] [id number] [place] [address]- 2346 Nov, [facility] [place] [facility] [address] [id number] [place] [address]- 9073 Nov, [facility] [place] [facility] [address] [id number] [place] [address]- 6416 Nov, [facility] [place] [facility] [address] [id number] [place] [address]- 3368 Nov, [facility] [place] [facility] [address] [id number] [place] [address]- 2542 Nov, [facility] [place] [facility] [address] [id number] [place] [address]- 0968 Nov, [facility] [place] [facility] [address] [id number] [place] [address]- 3150 Oct, [facility] [place] [facility] [address] [id number] [place] [address]- 4732 Oct, [facility] [place] [facility] [address] [id number] [place] [address]- 5910 08 Oct, 2012 [facility] [address] [id number] [place] [address]- 1975 Sep, [facility] [place] [facility] [address] [id number] [place] [address]- 3037 Sep, [facility] [address] [id number] [place] [address]- 2849 Sep, [facility] [address] [id number] [place] [address]- 2909 August, [facility] [address] [id number] [place] [address]- 3654 August, [facility] [address] [id number] [place] [address]- 0117 August, [facility] [address] [id number] [place] [address]- 3122 August, [facility] [address] [id number] [place] [address]- 5053 August, [facility] [address] [id number] [place] [address]- 2475 August, [facility] [address] [id number] [place] [address]- 4528 Jul, [facility] [place] [facility] [address] [id number] [place] [address]- 1338 15 Jul, 2012 [facility] [place] [facility] [address] [id number] [place] [address]- 1435 11 Jul, 2012 [facility] [place] [facility] [address] [id number] [place] [address]- 9864 10 Jul, 2012 [facility] [place] [facility] [address] [id number] [place] [address]- 6119 04 Jul, 2012 [facility] [place] [facility] [address] [id number] [place] [address]- 7786 04 Jul, 2012 [facility] [address] [id number] [place] [address]- 2329 2012 [facility] [address] [id number] [place] [address]- 4496 20 Jun, 2012 [facility] [address] [facility] [id number] [place] [address]- 3431 18 Jun, 2012 [facility] [address] [id number] [place] [address]- 5844 14 Jun, 2012 [facility] [address] [id number] [place] [address]- 2174 04 Jun, 2012 [facility] [address] [facility] [id number] [place] [address]- 7172 13 May, 2012 [facility] [address] [facility] [id number] [place] [address]- 5493 12 May, 2012 [facility] [address] [id number] [place] [address] 11 May, 2012 [facility] [address] [id number] [place] [address] 08 May, 2012 [facility] [address] [facility] [id number] [place] [address] 17 Apr, 2012 [facility] [address] [id number] [place] [address] Apr, [facility] [place] [facility] [address] [id number] [place] [address] Apr, [facility] [place] [facility] [address] [id number] [place] [address] Mar, [facility] [place] [facility] [address] [id number] [place] [address] Mar, [facility] [place] [facility] [address] [facility] [id number] [place] [address]44 Mar, [facility] [place] [facility] [address] [id number] [place] [address] 9029 29 Mar, 2012 [facility] [place] [facility] [address] [id number] [place] [address] Mar, [facility] [place] [facility] [address] [id number] [place] [address] Mar, [facility] [place] [facility] [address] [id number] [place] [address] Mar, [facility] [place] [facility] [address] [id number] [place] [address] Mar, [facility] [place] [facility] [address] [id number] [place] [address] 4989 Feb, [facility] [place] [facility] [address] [id number] [place] [address]492 Feb, [facility] [place] [facility] [address] [id number] [place] [address]65 Feb, [facility] [place] [facility] [address] [id number] [place] [address]241 Feb, [facility] [place] [facility] [address] [id number] [place] [address]479 Feb, [facility] [place] [facility] [address] [id number] [place] [address] 268[address] Feb, [facility] [place] [facility] [address] [id number] [place] [address]88 Feb, [facility] [place] [facility] [address] [id number] [place] [address] 9448 Feb, [facility] [place] [facility] [address] [id number] [place] [address] 9815 Feb, [facility] [place] [facility] [address] [id number] [place] [address] 4826 Feb, [facility] [place] [facility] [address] [id number] [place] [address] 8636 Feb, [facility] [place] [facility] [address] [id number] [place] [address] 0829 Feb, [facility] [place] [facility] [address] [id number] [place] [address] 3521 Feb, [facility] [place] [facility] [address] [id number] [place] [address] 9436 Feb, [facility] [place] [facility] [address] [id number] [place] [address] Feb, [facility] [place] [facility] [address] [id number] [place] [address] 7084 Feb, [facility] [place] [facility] [address] [id number] [place] [address] 6446 Feb, [facility] [place] [facility] [address] [facility] [id number] [place] [address] 60[address] Feb, [facility] [place] [facility] [address] [id number], [place] [address] Jan, [facility] [place] [facility] [address] [id number] [place] [address] 8238 Jan, [facility] [place] [facility] [address] [facility] [id number], [place] [address] Jan, [facility] [place] [facility] [address] [id number], [place] [address] Jan, [facility] [place] [facility] [address] [id number], [place] [address] Jan, [facility] [place] [facility] [address] [id number] [place] [address] 9923 19 Jan, 2012 [facility] [place] [facility] [address] [id number], [place] [address] Jan, [facility] [place] [facility] [address] [facility] [id number], [place] [address] Jan, [facility] [place] [facility] [address] [id number] [place] [address] 5806 15 Jan, 2012 [facility] [place] [facility] [address] [id number] [place] [address]- 1129 15 Jan, 2012 [facility] [place] [facility] [address] [id number] [place] [address]- 9956 11 Jan, 2012 [facility] [place] [facility] [address] [id number] [place] [address]- 4496 11 Jan, 2012 [facility] [place] [facility] [address] [id number] [place] [address]- 3069 10 Jan, 2012 [facility] [place] [facility] [address] [id number] [place] [address] 6999 09 Jan, 2012 [facility] [place] [facility] [address] [id number] [place] [address]- 6706 02 Jan, 2012 [facility] [place] [facility] [address] [id number] [place] [address]- 6246 29 Dec, 2011 [facility] [place] [facility] [address] [id number] [place] [address] 1047 28 Dec, 2011 [facility] [place] [facility] [address] [id number] [place] [address]- 7705 27 Dec, 2011 [facility] [place] [facility] [address] [id number] [place] [address]- 5126 26 Dec, 2011 [facility] [place] [facility] [address] [id number] [place] [address]- 1265 24 Nov, 2011 [facility] [place] [facility] [address] [id number] [place] [address] 2549 Nov, [facility] [place] [facility] [address] [id number] [place] [address]- 9897 Nov, [facility] [place] [facility] [address] [id number] [place] [address]- 5436 Nov, [facility] [place] [facility] [address] [id number] [place] [address]- 6127 Nov, [facility] [place] [facility] [address] [id number] [place] [address]- 7214 Nov, [facility] [place] [facility] [address] [id number] [place] [address]- 1363 Nov, [facility] [place] [facility] [address] [id number] [place] [address]- 8946 Nov, [facility] [place] [facility] [address] [id number] [place] [address]- 7069 Nov, [facility] [place] [facility] [address] [id number] [place] [address]- 6530 Nov, [facility] [place] [facility] [address] [id number] [place] [address]- 7997 Nov, [facility] [place] [facility] [address] [id number] [place] [address]- 5111 Oct, [facility] [place] [facility] [address] [id number] [place] [address]- 2731 Oct, [facility] [place] [facility] [address] [id number] [place] [address]- 7016 Oct, [facility] [place] [facility] [address] [id number] [place] [address]- 2210 Oct, [facility] [place] [facility] [address] [id number] [place] [address]- 4253 Oct, [facility] [place] [facility] [address] [id number] [place] [address]- 9233 Oct, [facility] [place] [facility] [address] [id number] [place] [address]- 7449 Oct, [facility] [place] [facility] [address] [id number] [place] [address]- 2481 Oct, [facility] [place] [facility] [address] [id number] [place] [address]- 7125 Sep, [facility] [place] [facility] [address] [id number] [place] [address]- 5138 Sep, [facility] [place] [facility] [address] [id number] [place] [address]- 1324 Sep, [facility] [facility] [address] [id number] [place] [address] Sep, [facility] [place] [facility] [address] [id number] [place] [address] Sep, [facility] [place] [facility] [address] [id number] [place] [address] Sep, [facility] [place] [facility] [address] [id number] [place] [address] Sep, [facility] [place] [facility] [address] [id number] [place] [address] August, [facility] [place] [facility] [address] [id number] [place] [address] August, [facility] [place] [facility] [address] [id number] [place] [address] August, [facility] [place] [facility] [address] [id number] [place] [address] August, [facility] [place] [facility] [address] [id number] [place] [address] August, [facility] [address] [id number] [place] [address] August, [facility] [place] [facility] [address] [id number] [place] [address] August, [facility] [place] [facility] [address] [id number] [place] [address] August, [facility] [place] [facility] [address] [id number] [place] [address] Jul, [facility] [place] [facility] [address] [id number] [place] [address] Jul, [facility] [place] [facility] [address] [id number] [place] [address] 13 Jul, 2011 [facility] [address] [id number] [place] [address] 11 Jul, 2011 [facility] [address] [id number] [place] [address]76 05 Jul, 2011 [facility] [address] [id number] [place] [address] 28 Jun, 2011 [facility] [address] [id number] [place] [address] 2011 [facility] [address] [id number] [place] [address] 20 Jun, 2011 [facility] [address] [id number] [place] [address] 19 Jun, 2011 [facility] [address] [id number] [place] [address]87 Jun, [facility] [address] [id number] [place] [address]- [address] 12 Jun, 2011 [facility] [address] [id number] [place] [address] Jun, [facility] [address] [id number] [place] [address]- [address] 07 Jun, 2011 [facility] [address] [id number] [place] [address] Jun, [facility] [address] [id number] [place] [address] 27 May, 2011 [facility] [address] [id number] [place] [address] 24 May, 2011 [facility] [address] [id number] [place] [address] May, [facility] [address] [id number] [place] [address] May, [facility] [address] [id number] [place] [address]- [address] May, [facility] [address] [id number] [place] [address]- [address]176 May, [facility] [address] [id number] [place] [address]- [address] May, [facility] [facility] [address] [id number] [place] [address]- [address] May, [facility] [address] [id number] [place] [address]- [address]163 Apr, [facility] [place] [facility] [address] [id number] [place] [address] 8670 Apr, [facility] [place] [facility] [address] [id number] [place] [address]- [address]45 Apr, [facility] [facility] [address] [id number] [place] [address]- [address] Apr, [facility] [address] [id number] [place] [address]- 8615 Apr, [facility] [address] [id number] [place] [address]- [address] Apr, [facility] [address] [id number] [place] [address]- [address] Mar, [facility] [address] [id number] [place] [address]- [address] Mar, [facility] [address] [id number] [place] [address]- 4[address] Mar, [facility] [address] [id number] [place] [address]- [address]482 Mar, [facility] [address] [id number] [place] [address]- 7029 Mar, [facility] [address] [id number] [place] [address]- [address]22 13 Mar, 2011 [facility] [address] [id number] [place] [address]- [address]68 Mar, [facility] [address] [id number] [place] [address] 48[address] Mar, [facility] [address] [id number] [place] [address]- 3426 Mar, [facility] [address] [id number] [place] [address]- 0808 Mar, [facility] [address] [id number] [place] [address]- [address] Mar, [facility] [address] [id number] [place] [address] 2699 Mar, [facility] [address] [id number] [place] [address] Mar, [facility] [address] [id number] [place] [address] Feb, [facility] [address] [facility] [id number] [place] [address] Feb, [facility] [address] [facility] [id number] [place] [address] 270[address] Feb, [facility] [address] [id number] [place] [address] 6588 Feb, [facility] [address] [id number] [place] [address] 6[address] Feb, [facility] [address] [id number] [place] [address]- 9532 Feb, [facility] [address] [facility] [id number] [place] [address]- 9925 Feb, [facility] [address] [facility] [id number] [place] [address]- 9928 Jan, [facility] [id number] [address] Jan, [facility] [id number] [address] Jan, [facility] [id number] [address] [address] Nov, [facility] [address] [facility] [id number], [place] [address] Mar, [facility] [address] [facility] [id number] [address] Mar, [facility] [id number] [place] [address] Mar, [facility] [id number] [place] [address]- [address] Mar, [facility] [id number] [place] [address]- [address] Mar, [facility] [id number] [address] Feb, [facility] [id number] [place] [address]- [address] Feb, [facility] [id number], [place] [address] 8[address] Feb, [facility] [id number], [place] [address]- [address]165 Feb, [facility] [address] [id number] [address] Feb, [facility] [id number] [address] Feb, IMMUNIZATIONS No Known Immunizations SOCIAL HISTORY Never Assessed REASON FOR VISIT PLAN OF CARE VITAL SIGNS MEDICATIONS Medication Instructions Dosage Frequency Start Date End Date Duration Status Levomilnacipran HCl ER 20 mg Orally Once a day 1 capsule 24h Apr, 30 day(s) Active RESULTS No Results PROCEDURES [...]
--- OUTSIDE RECORDS SUMMARY | 2017-12-22 05:07 | XMS REPORT ---
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 [id number] [place] [address]- 9568 19 Jun, 2014 [facility] [place] [facility] [address] [id number] [place] [address]- 6033 19 Jun, 2014 [facility] [place] [facility] [address] [id number] [place] [address]- 3525 18 Jun, 2014 [facility] [place] [facility] [address] [id number] [place] [address]- 0784 18 Jun, 2014 [facility] [place] [facility] [address] [id number] [place] [address]- 5665 18 Jun, 2014 [facility] [place] [facility] [address] [id number] [place] [address]- 0624 18 Jun, 2014 [facility] [place] [facility] [address] [id number] [place] [address]- 8822 17 Jun, 2014 [facility] [place] [facility] [address] [id number] [place] [address]- 0337 17 Jun, 2014 [facility] [place] [facility] [address] [id number] [place] [address]- 6446 17 Jun, 2014 [facility] [place] [facility] [address] [id number] [place] [address]- 0528 17 Jun, 2014 [facility] [place] [facility] [address] [id number] [place] [address]- 6036 13 Jun, 2014 [facility] [place] [facility] [address] [id number] [place] [address]- 6282 13 Jun, 2014 [facility] [place] [facility] [address] [id number] [place] [address]- 9251 12 Jun, 2014 [facility] [place] [facility] [address] [id number] [place] [address]- 6968 12 Jun, 2014 [facility] [place] [facility] [address] [id number] [place] [address]- 0932 10 Jun, 2014 [facility] [place] [facility] [address] [id number] [place] [address]- 1150 10 Jun, 2014 [facility] [place] [facility] [address] [id number] [place] [address]- 7102 10 Jun, 2014 [facility] [place] [facility] [address] [id number] [place] [address]- 1584 10 Jun, 2014 [facility] [place] [facility] [address] [id number] [place] [address]- 0608 06 Jun, 2014 [facility] [place] [facility] [address] [id number] [place] [address]- 1901 06 Jun, 2014 [facility] [place] [facility] [address] [id number] [place] [address]- 8393 05 Jun, 2014 [facility] [place] [facility] [address] [id number] [place] [address]- 3655 05 Jun, 2014 [facility] [place] [facility] [address] [id number] [place] [address]- 3236 02 Jun, 2014 [facility] [place] [facility] [address] [id number] [place] [address]- 7310 Jun, [facility] [place] [facility] [address] [id number] [place] [address]- 1352 May, 2014 [facility] [place] [facility] [address] [facility] [id number] [place] [address]- 2322 May, 2014 [facility] [place] [facility] [address] [facility] [id number] [place] [address]- 3478 May, 2014 [facility] [place] [facility] [address] [facility] [id number] [place] [address]- 2166 May, 2014 [facility] [place] [facility] [address] [facility] [id number] [place] [address]- 2485 May, 2014 [facility] [place] [facility] [address] [facility] [id number] [place] [address]- 1917 May, 2014 [facility] [place] [facility] [address] [facility] [id number] [place] [address]- 2125 May, 2014 [facility] [place] [facility] [address] [facility] [id number] [place] [address]- 8861 May, 2014 [facility] [place] [facility] [address] [facility] [id number] [place] [address]- 1355 May, 2014 [facility] [place] [facility] [address] [facility] [id number] [place] [address]- 1108 May, 2014 [facility] [place] [facility] [address] [facility] [id number] [place] [address]- 9130 May, 2014 [facility] [place] [facility] [address] [facility] [id number] [address]- 5633 May, 2014 [facility] [place] [facility] [address] [facility] [id number] [place] [address]- 0152 May, 2014 [facility] [place] [facility] [address] [facility] [id number] [place] [address]- 7569 May, 2014 [facility] [place] [facility] [address] [facility] [id number] [address]- 5622 02 May, 2014 [facility] [place] [facility] [address] [id number] [place] [address]- 0584 May, [facility] [place] [facility] [address] [id number] [place] [address]- 1868 Apr, [facility] [place] [facility] [address] [id number] [place] [address]- 4674 Apr, [facility] [place] [facility] [address] [id number] [place] [address]- 6253 Apr, [facility] [place] [facility] [address] [id number] [place] [address]- 4392 Apr, [facility] [place] [facility] [address] [id number] [place] [address]- 6711 Apr, [facility] [place] [facility] [address] [id number] [place] [address]- 4183 Apr, [facility] [place] [facility] [address] [id number] [place] [address]- 0242 Apr, [facility] [place] [facility] [address] [id number] [place] [address]- 9141 Apr, [facility] [place] [facility] [address] [id number] [place] [address]- 9872 Apr, [facility] [place] [facility] [address] [id number] [place] [address]- 3530 Apr, [facility] [place] [facility] [address] [id number] [place] [address]- 1818 Apr, [facility] [place] [facility] [address] [id number] [place] [address]- 5580 Apr, [facility] [place] [facility] [address] [id number] [place] [address]- 3455 Apr, [facility] [place] [facility] [address] [id number] [place] [address]- 5585 Apr, [facility] [place] [facility] [address] [id number] [place] [address]- 3793 Apr, [facility] [place] [facility] [address] [id number] [place] [address]- 8148 Mar, [facility] [place] [facility] [address] [id number] [place] [address]- 8276 Mar, [facility] [place] [facility] [address] [id number] [place] [address]- 6706 Mar, [facility] [place] [facility] [address] [id number] [place] [address]- 3301 Mar, [facility] [place] [facility] [address] [id number] [place] [address]- 0019 Mar, [facility] [place] [facility] [address] [id number] [place] [address]- 5042 Mar, [facility] [place] [facility] [address] [id number] [place] [address]- 7602 Mar, [facility] [place] [facility] [address] [id number] [place] [address]- 8180 15 Mar, 2014 [facility] [place] [facility] [address] [id number] [place] [address]- 5038 Mar, [facility] [place] [facility] [address] [id number] [place] [address]- 1370 Mar, [facility] [place] [facility] [address] [id number] [place] [address]- 7757 Mar, [facility] [place] [facility] [address] [id number] [place] [address]- 2448 15 Mar, 2014 [facility] [place] [facility] [address] [id number] [place] [address]- 7201 Mar, [facility] [place] [facility] [address] [id number] [place] [address]- 1173 Mar, [facility] [place] [facility] [address] [id number] [place] [address]- 3849 Mar, [facility] [place] [facility] [address] [id number] [place] [address]- 6184 Mar, [facility] [place] [facility] [address] [id number] [place] [address]- 0222 Mar, [facility] [place] [facility] [address] [id number] [place] 5777 Mar, [facility] [place] [facility] [address] [id number] [place] 0735 Feb, [facility] [place] [facility] [address] [id number] [place] [address]- 7870 Feb, [facility] [place] [facility] [address] [id number] [place] [address]- 5767 Feb, [facility] [place] [facility] [address] [id number] [place] [address]- 8888 Feb, [facility] [place] [facility] [address] [id number] [place] [address]- 5695 Feb, [facility] [place] [facility] [address] [id number] [place] [address]- 8297 Feb, [facility] [place] [facility] [address] [id number] [place] [address] Feb, [facility] [place] [facility] [address] [id number] [place] [address] Feb, [facility] [place] [facility] [address] [id number] [place] [address] Jan, [facility] [place] [facility] [address] [id number] [place] [address] Jan, [facility] [place] [facility] [address] [id number] [place] [address] Jan, [facility] [place] [facility] [address] [id number] [place] [address] Jan, [facility] [place] [facility] [address] [id number] [place] [address] Jan, [facility] [place] [facility] [address] [id number] [place] [address] Jan, [facility] [place] [facility] [address] [id number] [place] [address] Jan, [facility] [place] [facility] [address] [id number] [place] [address] Jan, [facility] [place] [facility] [address] [id number] [place] [address] Jan, [facility] [place] [facility] [address] [id number] [place] [address] Jan, [facility] [place] [facility] [address] [id number] [place] [address] Jan, [facility] [place] [facility] [address] [id number] [place] [address]- [address] Jan, [facility] [place] [facility] [address] [id number] [place] [address]- [address] Jan, [facility] [place] [facility] [address] [id number] [place] [address]- [address]67 Jan, [facility] [place] [facility] [address] [id number] [place] [address] Jan, [facility] [place] [facility] [address] [id number] [place] [address] Jan, [facility] [place] [facility] [address] [id number] [address] Jan, [facility] [place] [facility] [address] [id number] [place] [address] Jan, [facility] [place] [facility] [address] [id number] [place] [address] Dec, [facility] [place] [facility] [address] [id number] [place] [address]- [address] 29 Dec, 2013 [facility] [place] [facility] [address] [id number] [place] [address]- [address] 26 Sep, 2013 [facility] [place] [facility] [address] [id number] [place] [address]46 26 Sep, 2013 [facility] [place] [facility] [address] [id number] [place] [address] 26 Sep, 2013 [facility] [place] [facility] [address] [id number] [place] [address] 2546 26 Sep, 2013 [facility] [place] [facility] [address] [id number] [place] [address]- [address] 23 Sep, 2013 [facility] [place] [facility] [address] [id number] [place] [address]- [address]67 23 Sep, 2013 [facility] [place] [facility] [address] [id number] [place] [address]- [address] 22 Dec, 2013 [facility] [place] [facility] [address] [id number] [place] [address]- 114[address] 22 Dec, 2013 [facility] [place] [facility] [address] [id number] [place] [address]- [address]40 16 Sep, 2013 [facility] [place] [facility] [address] [id number] [place] [address]- 1518 16 Dec, 2013 [facility] [place] [facility] [address] [id number] [place] [address]- [address] 15 Dec, 2013 [facility] [place] [facility] [address] [id number] [place] [address] 2542 15 Dec, 2013 [facility] [place] [facility] [address] [id number] [address] 09 Dec, 2013 [facility] [place] [facility] [address] [id number] [place] [address]- [address] 03 Dec, 2013 [facility] [place] [facility] [address] [id number] [place] [address]- [address] 03 Dec, 2013 [facility] [place] [facility] [address] [id number] [place] [address] 29 Nov, 2013 [facility] [place] [facility] [address] [id number] [place] [address] Nov, [facility] [place] [facility] [address] [id number] [place] [address] Nov, [facility] [place] [facility] [address] [id number] [place] [address]- [address] Nov, [facility] [place] [facility] [address] [id number] [place] [address]- [address] Nov, [facility] [place] [facility] [address] [id number] [place] [address]- [address] Nov, [facility] [place] [facility] [address] [id number] [place] [address]- [address] Nov, [facility] [place] [facility] [address] [id number] [place] [address]- [address] Nov, [facility] [place] [facility] [address] [id number] [place] [address]- [address] Nov, [facility] [place] [facility] [address] [id number] [place] [address]- [address] Nov, [facility] [place] [facility] [address] [id number] [place] [address]- 94[address] Nov, [facility] [place] [facility] [address] [id number] [place] [address]- [address] Nov, [facility] [place] [facility] [address] [id number] [place] [address]- 16[address] Nov, [facility] [place] [facility] [address] [id number] [place] [address]- [address] Nov, [facility] [place] [facility] [address] [id number] [place] [address] Nov, [facility] [place] [facility] [address] [id number] [place] [address] Nov, [facility] [place] [facility] [address] [id number] [place] [address] Nov, [facility] [place] [facility] [address] [id number] [place] [address] 2309 Nov, [facility] [place] [facility] [address] [id number] [place] [address] 25[address] Nov, [facility] [place] [facility] [address] [id number] [place] [address] 4506 Nov, [facility] [place] [facility] [address] [id number] [place] [address] 1289 Nov, [facility] [place] [facility] [address] [id number] [place] [address] 1153 Oct, [facility] [place] [facility] [address] [id number] [place] [address] 4061 Oct, [facility] [place] [facility] [address] [id number] [place] [address] 9802 Oct, [facility] [place] [facility] [address] [id number] [place] [address] 4965 Oct, [facility] [place] [facility] [address] [id number] [place] [address] 6450 Oct, [facility] [place] [facility] [address] [id number] [place] [address]- 1158 Oct, [facility] [place] [facility] [address] [id number] [place] [address]- 9096 Oct, [facility] [place] [facility] [address] [id number] [place] [address]- 9146 Oct, [facility] [place] [facility] [address] [id number] [place] [address]- 4596 Oct, [facility] [place] [facility] [address] [id number] [place] [address]- 2423 Oct, [facility] [place] [facility] [address] [id number] [place] [address]- 7570 Oct, [facility] [place] [facility] [address] [id number] [place] [address]- 6286 Oct, [facility] [place] [facility] [address] [id number] [place] [address]- 8537 Oct, [facility] [place] [facility] [address] [id number] [place] [address]- 2258 Oct, [facility] [place] [facility] [address] [id number] [place] [address]- 6759 Oct, [facility] [place] [facility] [address] [id number] [place] [address]- 4568 Sep, [facility] [place] [facility] [address] [id number] [place] [address]- 8651 Sep, [facility] [place] [facility] [address] [id number] [place] [address]- 3257 Sep, [facility] [place] [facility] [address] [id number] [place] [address]- 8156 Sep, [facility] [place] [facility] [address] [id number] [place] [address]- 6755 Sep, [facility] [place] [facility] [address] [id number] [place] [address]- 0402 Sep, [facility] [place] [facility] [address] [id number] [place] [address]- 4149 Sep, [facility] [place] [facility] [address] [id number] [place] [address]- 2262 Sep, [facility] [place] [facility] [address] [id number] [place] [address]- 8890 17 Sep, 2013 [facility] [place] [facility] [address] [id number] [place] [address]- 7712 Sep, [facility] [place] [facility] [address] [id number] [place] [address]- 4674 Sep, [facility] [place] [facility] [address] [id number] [place] [address]- 6772 Sep, [facility] [place] [facility] [address] [id number] [place] [address]- 3032 Sep, [facility] [place] [facility] [address] [id number] [place] [address]- 9514 Sep, [facility] [place] [facility] [address] [id number] [place] [address]- 4056 Sep, [facility] [place] [facility] [address] [id number] [place] [address]- 3196 Sep, [facility] [place] [facility] [address] [id number] [place] [address]- 6132 Sep, [facility] [place] [facility] [address] [id number] [place] [address]- 1642 Sep, [facility] [place] [facility] [address] [id number] [place] [address]- 1077 Sep, [facility] [place] [facility] [address] [id number] [place] [address]- 6788 Sep, [facility] [place] [facility] [address] [id number] [place] [address]- 8131 Sep, [facility] [place] [facility] [address] [id number] [place] [address]- 7297 Sep, [facility] [place] [facility] [address] [id number] [place] [address]- 1346 August, [facility] [place] [facility] [address] [id number] [place] [address]- 5767 August, [facility] [place] [facility] [address] [id number] [place] [address]- 4683 August, [facility] [place] [facility] [address] [id number] [place] [address]- 0333 August, [facility] [place] [facility] [address] [id number] [place] [address]- 7340 August, [facility] [place] [facility] [address] [id number] [place] [address]- 0630 August, [facility] [place] [facility] [address] [id number] [place] [address]- 9764 August, [facility] [place] [facility] [address] [id number] [place] [address] August, [facility] [place] [facility] [address] [id number] [place] [address]- 5668 August, [facility] [place] [facility] [address] [id number] [place] [address]- 0624 August, [facility] [place] [facility] [address] [id number] [place] [address]- 1147 August, [facility] [place] [facility] [address] [id number] [place] [address]- 2238 August, [facility] [place] [facility] [address] [id number] [place] [address]- 6224 August, [facility] [place] [facility] [address] [id number] [place] [address]- 8916 August, [facility] [place] [facility] [address] [id number] [place] [address]- 8503 August, [facility] [place] [facility] [address] [id number] [place] [address]- 7446 August, [facility] [place] [facility] [address] [id number] [place] [address]- 7767 August, [facility] [place] [facility] [address] [id number] [place] [address]- 6613 August, [facility] [place] [facility] [address] [id number] [place] [address]- 2967 Jul, [facility] [place] [facility] [address] [id number] [place] [address]- 5824 Jul, [facility] [place] [facility] [address] [id number] [place] [address]- 9531 Jul, [facility] [place] [facility] [address] [id number] [place] [address]- 3275 25 Jul, 2013 [facility] [address] [id number] [place] [address]- 2396 24 Jul, 2013 [facility] [place] [facility] [address] [id number] [place] [address]- 7451 Jul, [facility] [address] [id number] [place] [address]- 6775 Jul, [facility] [place] [facility] [address] [id number] [place] [address]- 2807 Jul, [facility] [address] [id number] [place] [address]- 4668 Jul, [facility] [address] [id number] [place] [address]- 9258 Jul, [facility] [address] [id number] [place] [address]- 4889 Jul, [facility] [address] [id number] [place] [address]- 7952 Jul, [facility] [place] [facility] [address] [id number] [place] [address]- 7899 Jul, [facility] [address] [id number] [place] [address]- 7526 Jul, [facility] [place] [facility] [address] [id number] [place] [address]- 0409 Jul, [facility] [place] [facility] [address] [id number] [place] [address]- 8084 Jul, [facility] [place] [facility] [address] [id number] [place] [address]- 8324 Jul, [facility] [place] [facility] [address] [id number] [place] [address]- 0173 16 Jul, 2013 [facility] [place] [facility] [address] [id number] [place] [address]- 4142 16 Jul, 2013 [facility] [place] [facility] [address] [id number] [place] [address]- 9776 15 Jul, 2013 [facility] [place] [facility] [address] [id number] [place] [address]- 5832 15 Jul, 2013 [facility] [place] [facility] [address] [id number] [place] [address]- 1093 14 Jul, 2013 [facility] [place] [facility] [address] [id number] [place] [address]- 4388 14 Jul, 2013 [facility] [place] [facility] [address] [id number] [place] [address]- 4688 Jul, [facility] [place] [facility] [address] [id number] [place] [address]- 3251 Jul, [facility] [place] [facility] [address] [id number] [place] [address]- 6237 Jul, [facility] [place] [facility] [address] [id number] [place] [address]- 9610 Jul, [facility] [place] [facility] [address] [id number] [place] [address]- 4852 Jul, [facility] [place] [facility] [address] [id number] [place] [address]- 5188 Jul, [facility] [place] [facility] [address] [id number] [place] [address]- 3734 17 Jun, 2013 [facility] [place] [facility] [address] [id number] [place] [address]- 7443 17 Jun, 2013 [facility] [place] [facility] [address] [id number] [place] [address]- 5218 17 Jun, 2013 [facility] [place] [facility] [address] [id number] [place] [address]- 2755 17 Jun, 2013 [facility] [place] [facility] [address] [id number] [place] [address]- 9426 13 Jun, 2013 [facility] [place] [facility] [address] [id number] [place] [address]- 5216 13 Jun, 2013 [facility] [place] [facility] [address] [id number] [place] [address]- 8070 11 Jun, 2013 [facility] [place] [facility] [address] [id number] [place] [address]- 0357 11 Jun, 2013 [facility] [place] [facility] [address] [id number] [place] [address]- 4121 10 Jun, 2013 [facility] [place] [facility] [address] [id number] [place] [address]- 8768 10 Jun, 2013 [facility] [place] [facility] [address] [id number] [place] [address]- 9192 04 Jun, 2013 [facility] [place] [facility] [address] [id number] [place] [address]- 2446 04 Jun, 2013 [facility] [place] [facility] [address] [id number] [place] [address]- 9139 28 May, 2013 [facility] [place] [facility] [address] [id number] [place] [address]- 4182 28 May, 2013 [facility] [place] [facility] [address] [facility] [id number] [place] [address]- 1911 07 May, 2013 [facility] [place] [facility] [address] [facility] [id number] [place] [address]- 7636 07 May, 2013 [facility] [place] [facility] [address] [facility] [id number] [place] [address]- 7496 05 May, 2013 [facility] [place] [facility] [address] [facility] [id number] [place] [address]- 4471 05 May, 2013 [facility] [place] [facility] [address] [id number] [place] [address]- 3571 04 May, 2013 [facility] [place] [facility] [address] [facility] [id number] [place] [address]- 0370 04 May, 2013 [facility] [place] [facility] [address] [facility] [id number] [place] [address]- 3162 May, [facility] [place] [facility] [address] [id number] [place] [address]- 6417 May, [facility] [place] [facility] [address] [id number] [place] [address]- 5969 Apr, [facility] [place] [facility] [address] [id number] [place] [address]- 7349 Apr, [facility] [place] [facility] [address] [id number] [place] [address]- 2245 Apr, [facility] [place] [facility] [address] [id number] [place] [address]- 6601 Apr, [facility] [place] [facility] [address] [id number] [place] [address]- 1582 Apr, [facility] [place] [facility] [address] [id number] [place] [address]- 6011 Apr, [facility] [place] [facility] [address] [id number] [place] [address]- 5203 Apr, [facility] [place] [facility] [address] [id number] [place] [address]- 4336 Apr, [facility] [place] [facility] [address] [id number] [place] [address]- 9601 Apr, [facility] [place] [facility] [address] [id number] [place] [address]- 0071 Apr, [facility] [place] [facility] [address] [id number] [address]- 9190 Mar, [facility] [place] [facility] [address] [id number] [place] [address]- 0088 Mar, [facility] [place] [facility] [address] [id number] [place] [address]- 0758 Mar, [facility] [place] [facility] [address] [id number] [place] [address]- 2528 Mar, [facility] [place] [facility] [address] [id number] [place]36 Mar, [facility] [place] [facility] [address] [id number] [place] [address]- 6912 Mar, [facility] [place] [facility] [address] [id number] [place] [address] Feb, [facility] [place] [facility] [address] [id number] [place] [address]- 4590 Feb, [facility] [place] [facility] [address] [id number] [place] [address]- 8215 Feb, [facility] [place] [facility] [address] [id number] [place] 2543 Jan, [facility] [place] [facility] [address] [id number] [place] [address]- 8309 Jan, [facility] [place] [facility] [address] [id number] [place] [address]- 4512 Jan, [facility] [place] [facility] [address] [id number] [place] [address]- 1335 Jan, [facility] [place] [facility] [address] [id number] [place] [address]- 3666 Jan, [facility] [place] [facility] [address] [id number] [place] [address]- 2284 Jan, [facility] [place] [facility] [address] [id number] [place] [address]- 4805 Jan, [facility] [place] [facility] [address] [id number] [place] [address]- 1675 Jan, [facility] [place] [facility] [address] [id number] [place] [address]- 6344 04 Jan, 2013 [facility] [place] [facility] [address] [id number] [place] [address]673 Jan, [facility] [place] [facility] [address] [id number] [place] [address]- 5856 30 Dec, 2012 [facility] [place] [facility] [address] [id number] [place] [address]- 9341 25 Dec, 2012 [facility] [place] [facility] [address] [id number] [place] [address]- 1081 11 Dec, 2012 [facility] [place] [facility] [address] [id number] [place] [address]- 2548 09 Dec, 2012 [facility] [place] [facility] [address] [id number] [place] [address]- 8689 05 Dec, 2012 [facility] [place] [facility] [address] [id number] [place] [address]- 5028 04 Dec, 2012 [facility] [place] [facility] [address] [id number] [place] [address]- 4140 Nov, [facility] [place] [facility] [address] [id number] [place] [address]- 7580 Nov, [facility] [place] [facility] [address] [id number] [place] [address]- 8184 Nov, [facility] [place] [facility] [address] [id number] [place] [address]- 0502 Nov, [facility] [place] [facility] [address] [id number] [place] [address]- 8114 Nov, [facility] [place] [facility] [address] [id number] [place] [address]- 8885 Nov, [facility] [place] [facility] [address] [id number] [place] [address]- 6422 Nov, [facility] [place] [facility] [address] [id number] [place] [address] 2540 Nov, [facility] [place] [facility] [address] [id number] [place] [address]- 2545 Nov, [facility] [place] [facility] [address] [id number] [place] [address]- 8237 Nov, [facility] [place] [facility] [address] [id number] [place] [address]- 3026 Nov, [facility] [address] [id number] [place] [address]- 3618 Nov, [facility] [place] [facility] [address] [id number] [place] [address]- 6166 Oct, [facility] [place] [facility] [address] [id number] [place] [address]- 9966 Oct, [facility] [place] [facility] [address] [id number] [place] [address]- 2189 Oct, [facility] [address] [id number] [place] [address]- 5562 Sep, [facility] [place] [facility] [address] [id number] [place] [address]- 2226 Sep, [facility] [address] [id number] [place] [address]- 7393 Sep, [facility] [place] [facility] [address] [id number] [place] [address]- 1810 August, [facility] [address] [id number] [place] [address]- 6707 August, [facility] [place] [facility] [address] [id number] [place] [address]- 2724 August, [facility] [place] [facility] [address] [id number] [place] [address]- 5988 August, [facility] [place] [facility] [address] [id number] [place] [address]- 5847 August, [facility] [place] [facility] [address] [id number] [place] [address]- 2716 August, [facility] [place] [facility] [address] [id number] [place] [address]- 3646 Jul, [facility] [place] [facility] [address] [id number] [place] [address]- 2212 Jul, [facility] [place] [facility] [address] [id number] [place] [address]- 0027 11 Jul, 2012 [facility] [address] [id number] [place] [address]- 3169 10 Jul, 2012 [facility] [address] [id number] [place] [address]- 4546 04 Jul, 2012 [facility] [address] [id number] [place] [address]- 3751 04 Jul, 2012 [facility] [address] [id number] [place] [address]- 2691 2012 [facility] [address] [id number] [place] [address]- 4940 20 Jun, 2012 [facility] [address] [id number] [place] [address]- 2048 18 Jun, 2012 [facility] [address] [id number] [place] [address]- 3544 14 Jun, 2012 [facility] [address] [id number] [place] [address]- 5799 04 Jun, 2012 [facility] [address] [id number] [place] [address]- 8961 13 May, 2012 [facility] [address] [id number] [place] [address]- 0463 12 May, 2012 [facility] [address] [id number] [place] [address]- 7008 May, [facility] [address] [id number] [place] [address]- 7067 08 May, 2012 [facility] [address] [id number] [place] [address] 17 Apr, 2012 [facility] [address] [id number] [place] [address] Apr, [facility] [address] [id number] [place] [address] Apr, [facility] [place] [facility] [address] [id number] [place] [address] Mar, [facility] [place] [facility] [address] [id number] [place] [address] Mar, [facility] [place] [facility] [address] [id number] [place] [address] Mar, [facility] [place] [facility] [address] [id number] [place] [address] Mar, [facility] [place] [facility] [address] [id number] [place] [address] Mar, [facility] [place] [facility] [address] [id number] [place] [address] Mar, [facility] [place] [facility] [address] [id number] [place] [address] Mar, [facility] [place] [facility] [address] [id number] [place] [address] Mar, [facility] [place] [facility] [address] [id number] [place] [address] Feb, [facility] [place] [facility] [address] [id number] [place] [address] Feb, [facility] [place] [facility] [address] [id number] [address] Feb, [facility] [place] [facility] [address] [id number] [address] Feb, [facility] [place] [facility] [address] [id number] [place] [address] Feb, [facility] [place] [facility] [address] [id number] [place] [address] 39[address] Feb, [facility] [place] [facility] [address] [id number] [place] [address] Feb, [facility] [place] [facility] [address] [id number] [place] [address] Feb, [facility] [place] [facility] [address] [id number] [place] [address] Feb, [facility] [place] [facility] [address] [id number] [place] [address]- [address] Feb, [facility] [place] [facility] [address] [id number] [place] [address] 89[address] Feb, [facility] [place] [facility] [address] [id number] [place] [address] Feb, [facility] [place] [facility] [address] [id number] [place] [address] Feb, [facility] [place] [facility] [address] [id number] [place] [address] Feb, [facility] [place] [facility] [address] [id number] [place] [address]- [address] Feb, [facility] [place] [facility] [address] [id number] [place] [address] Feb, [facility] [place] [facility] [address] [id number] [place] [address] 9[address] Feb, [facility] [place] [facility] [address] [facility] [id number] [place] [address]- [address] Feb, [facility] [place] [facility] [address] [id number] [place] [address] 1468 Jan, [facility] [place] [facility] [address] [id number] [address] Jan, [facility] [place] [facility] [address] [id number] [place] [address]074 Jan, [facility] [place] [facility] [address] [id number] [place] [address] Jan, [facility] [place] [facility] [address] [id number] [place] [address] Jan, [facility] [place] [facility] [address] [id number] [place] [address]- [address] 19 Jan, 2012 [facility] [place] [facility] [address] [id number] [place] [address] 18 Jan, 2012 [facility] [place] [facility] [address] [id number] [place] [address] 18 Jan, 2012 [facility] [place] [facility] [address] [id number] [place] [address], [place] [address]- [address] 15 Jan, 2012 [facility] [place] [facility] [address] [id number] [place] [address] 15 Jan, 2012 [facility] [place] [facility] [address] [id number] [place] [address]- 9769 11 Jan, 2012 [facility] [place] [facility] [address] [id number] [place] [address]- [address] 11 Jan, 2012 [facility] [place] [facility] [address] [id number] [place] [address]- [address] 10 Jan, 2012 [facility] [place] [facility] [address] [id number] [place] [address] 09 Jan, 2012 [facility] [place] [facility] [address] [id number] [place] [address]- [address] 02 Jan, 2012 [facility] [place] [facility] [address] [id number] [place] [address]- [address] 29 Dec, 2011 [facility] [place] [facility] [address] [id number] [place] [address] 28 Dec, 2011 [facility] [place] [facility] [address] [id number] [place] [address]- [address] 27 Dec, 2011 [facility] [place] [facility] [address] [id number] [place] [address]- 3499 26 Dec, 2011 [facility] [place] [facility] [address] [id number] [place] [address]- 8542 24 Nov, 2011 [facility] [place] [facility] [address] [id number] [place] [address]- 7040 Nov, [facility] [place] [facility] [address] [id number] [place] [address]- 8547 Nov, [facility] [place] [facility] [address] [id number] [place] [address]- [address] Nov, [facility] [place] [facility] [address] [id number] [place] [address]- 3048 Nov, [facility] [place] [facility] [address] [id number] [place] [address]- 8580 Nov, [facility] [place] [facility] [address] [id number] [place] [address]- [address]37 Nov, [facility] [place] [facility] [address] [id number] [place] [address]- 287[address] Nov, [facility] [place] [facility] [address] [id number] [place] [address]- 0960 Nov, [facility] [place] [facility] [address] [id number] [place] [address]- 3279 Nov, [facility] [place] [facility] [address] [id number] [place] [address]- 9875 Nov, [facility] [place] [facility] [address] [id number] [place] [address]- [address] Oct, [facility] [place] [facility] [address] [id number] [place] [address]- 2735 Oct, [facility] [place] [facility] [address] [id number] [place] [address]- [address]139 Oct, [facility] [place] [facility] [address] [id number] [place] [address]- 6947 Oct, [facility] [place] [facility] [address] [id number] [place] [address]- 46[address] Oct, [facility] [place] [facility] [address] [id number] [place] [address]- 275[address] Oct, [facility] [place] [facility] [address] [id number] [place] [address]- 4[address] Oct, [facility] [address] [id number] [place] [address]- 1554 Oct, [facility] [address] [id number] [place] [address]- [address] Sep, [facility] [address] [id number] [place] [address]- 6079 Sep, [facility] [address] [id number] [place] [address]- [address] Sep, [facility] [address] [id number] [place] [address]- 3081 Sep, [facility] [address] [id number] [place] [address] Sep, [facility] [address] [id number] [place] [address] Sep, [facility] [address] [id number] [place] [address] Sep, [facility] [address] [id number] [place] [address] August, [facility] [address] [id number] [place] [address] August, [facility] [place] [facility] [address] [id number] [place] [address] August, [facility] [address] [id number] [place] [address] August, [facility] [place] [facility] [address] [id number] [place] [address] August, [facility] [place] [facility] [address] [id number] [place] [address] August, [facility] [address] [id number] [place] [address] August, [facility] [address] [id number] [place] [address] August, [facility] [place] [facility] [address] [id number] [place] [address] 28 Jul, 2011 [facility] [place] [facility] [address] [id number] [place] [address] 17 Jul, 2011 [facility] [place] [facility] [address] [id number] [place] [address] 13 Jul, 2011 [facility] [place] [facility] [address] [id number] [place] [address] Jul, [facility] [place] [facility] [address] [id number] [place] [address] 05 Jul, 2011 [facility] [place] [facility] [address] [id number] [place] [address] Jun, [facility] [place] [facility] [address] [id number] [place] [address] 2011 [facility] [place] [facility] [address] [id number] [place] [address] Jun, [facility] [place] [facility] [address] [id number] [place] [address] Jun, [facility] [place] [facility] [address] [id number] [place] [address] Jun, [facility] [place] [facility] [address] [id number] [place] [address] Jun, [facility] [place] [facility] [address] [id number] [place] [address] Jun, [facility] [place] [facility] [address] [id number] [place] [address] 07 Jun, 2011 [facility] [place] [facility] [address] [id number] [place] [address] 06 Jun, 2011 [facility] [place] [facility] [address] [id number] [place] [address] May, [facility] [address] [id number] [place] [address] May, [facility] [place] [facility] [address] [id number] [place] [address] May, [facility] [place] [facility] [address] [id number] [place] [address] May, [facility] [place] [facility] [address] [id number] [place] [address] May, [facility] [address] [id number] [place] [address] May, [facility] [place] [facility] [address] [facility] [id number] [place] [address] 25[address] May, [facility] [address] [id number] [address] May, [facility] [address] [id number] [place] [address] Apr, [facility] [place] [facility] [address] [id number] [place] [address] Apr, [facility] [address] [facility] [id number] [place] [address] Apr, [facility] [place] [facility] [address] [facility] [id number] [place] [address] Apr, [facility] [place] [facility] [address] [id number] [place] [address] 25[address] Apr, [facility] [place] [facility] [address] [id number] [place] [address]- [address] Apr, [facility] [place] [facility] [address] [facility] [id number] [place] [address] 25[address] Mar, [facility] [place] [facility] [address] [id number] [place] [address] Mar, [facility] [address] [id number] [place] [address] 26 Mar, 2011 [facility] [place] [facility] [address] [id number] [place] [address]- [address] 19 Mar, 2011 [facility] [place] [facility] [address] [id number] [place] [address]- 46[address] 15 Mar, 2011 [facility] [place] [facility] [address] [id number] [place] [address]- [address]69 Mar, [facility] [place] [facility] [address] [id number] [place] [address]- [address] Mar, [facility] [place] [facility] [address] [id number] [place] [address]- [address] Mar, [facility] [place] [facility] [address] [id number] [place] [address]- [address] Mar, [facility] [place] [facility] [address] [id number] [place] [address]- [address]653 Mar, [facility] [place] [facility] [address] [id number] [place] [address]- [address] Mar, [facility] [place] [facility] [address] [id number] [place] [address]- [address]104 Mar, [facility] [place] [facility] [address] [facility] [id number] [address] Mar, [facility] [place] [facility] [address] [id number] [address] Feb, [facility] [place] [facility] [address] [id number] [place] [address] Feb, [facility] [place] [facility] [address] [id number] [place] [address]- 2566 Feb, [facility] [place] [facility] [address] [facility] [id number] [address] 05 Feb, 2011 [facility] [place] [facility] [address] [id number] [address] Feb, [facility] [place] [facility] [address] [id number] [place] [address]696 Feb, [facility] [place] [facility] [address] [id number] [place] [address]- 6926 Feb, [facility] [place] [facility] [address] [id number] [place] [address]- [address] Jan, [facility] [place] [facility] [address] [id number] [place] [address]- [address]178 17 Jan, 2011 [facility] [place] [facility] [address] [id number] [place] [address], [place] [address]- [address] Jan, [facility] [place] [facility] [address] [id number] [place] [address]- [address] Nov, [facility] [place] [facility] [address] [facility] [id number] [place] [address]- [address] Mar, [facility] [place] [facility] [address] [id number] [place] [address]- [address] Mar, [facility] [place] [facility] [address] [facility] [id number] [place] [address]- 6928 Mar, [facility] [place] [facility] [address] [facility] [id number] [place] [address]- 6163 Mar, [facility] [place] [facility] [address] [facility] [id number] [place] [address]- 1134 Mar, [facility] [place] [facility] [address] [id number] [place] [address]- [address]49 30 Feb, 2010 [facility] [place] [facility] [address] [id number] [place] [address]- [address] 30 Feb, 2010 [facility] [place] [facility] [address] [facility] [id number] [place] [address]- [address] 24 Feb, 2010 [facility] [place] [facility] [address] [facility] [id number] [place] [address]- 5941 Feb, [facility] [place] [facility] [address] [facility] [id number] [place] [address]- [address] 19 Feb, 2010 [facility] [address] [facility] [id number] [place] [address]- [address] 15 Feb, 2010 IMMUNIZATIONS No Known Immunizations SOCIAL HISTORY Never Assessed REASON FOR VISIT controlled med request PLAN OF CARE VITAL SIGNS MEDICATIONS [...]
--- OUTSIDE RECORDS SUMMARY | 2017-12-22 05:23 | XMS REPORT | Continuity of Care Document ---
Author Author [facility] Organization [facility] Address Unknown Phone Unavailable Allergies Active Description Code Type Severity Reaction Onset Reported/Identified Relationship to Patient Clinical Status Yes NO KNOWN DRUG ALLERGIES UNKNOWN NO KNOWN DRUG ALLERG Yes Lyrica Drug Allergy N/A N/A 02/21/2011 Yes Lyrica Drug Allergy 02/21/2011 Yes Ambien 10 mg tablet Drug Allergy N/A N/A 02/04/2012 Yes Ambien 10 mg tablet Drug Allergy 02/04/2012 Yes Neurontin Drug Allergy 02/04/2012 Yes Prozac Drug Allergy N/A N/A 07/21/2012 Yes Prozac Drug Allergy 07/21/2012 Yes No Known Drug Allergies [id number] Drug Allergy Unknown N/A 05/17/2013 Yes fluticasone [id number] Drug Allergy Unknown DOESN'T WORK 05/09/2015 Yes gabapentin [id number] Drug Allergy Unknown NOT EFFECTIVE 05/09/2015 Yes PROPANOLOL PROPANOLOL Unknown NOT EFFECTIVE 05/09/2015 Yes salmeterol [id number] Drug Allergy Unknown DOESN'T WORK 05/09/2015 Yes zolpidem [id number] Drug Allergy Unknown "MAKES ME ANGRY 05/09/2015 Yes fluoxetine [id number] Drug Allergy Mild N/A 03/05/2017 Medications There is no data. Problems Date Dx Coded Attending Type Code Diagnosis Diagnosed By 03/18/1103 JARRED CASTRO, ROCÍO Ot 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 03/18/1103 JARRED CASTRO, ROCÍO Ot E66.01 MORBID (SEVERE) OBESITY DUE TO EXCESS CA 03/18/1103 JARRED CASTRO, ROCÍO Hays E78.5 HYPERLIPIDEMIA, UNSPECIFIED 03/18/1103 JARRED CASTRO, ROCÍO Ot F31.9 BIPOLAR DISORDER, UNSPECIFIED 03/18/1103 JARRED CASTRO, ROCÍO Ot I10 ESSENTIAL (PRIMARY) HYPERTENSION 03/18/1103 XUN ROCÍO CASTRO Ot J44.9 CHRONIC OBSTRUCTIVE PULMONARY DISEASE, U 03/18/1103 ROCÍO STERN MD Ot K21.9 GASTRO-ESOPHAGEAL REFLUX DISEASE WITHOUT 03/18/1103 JARRED CASTRO, ROCÍO Ot Z68.41 BODY MASS INDEX (BMI) 40.0-44.9, ADULT 03/18/1103 ROCÍO STERN MD Ot Z79.899 OTHER SENIOR CARE (CURRENT) DRUG THERAPY 12/18/2009 Ot 530.81 12/18/2009 Ot 535.40 03/07/2010 532.30 Acute Duodenal Ulcer Without Hemorrhage Or Perforation Without Obstruction 03/07/2010 724.5 Backache Unspecified 03/07/2010 MUGLORY DDS, LOBO N 532.30 Acute Duodenal Ulcer Without Hemorrhage Or Perforation Without Obstruction 03/07/2010 MIRI DDS, LOBO N 724.5 Backache Unspecified 03/07/2010 [...] 724.5 Backache Unspecified 03/07/2010 MAEVE NARAYANAN PA-C M 532.30 Acute Duodenal Ulcer Without Hemorrhage [...] DEEDEE J 724.5 Backache Unspecified 03/07/2010 ASHELY SPANGLERN BOY J 532.30 Acute Duodenal Ulcer Without [...] PHILIPPE K 724.5 Backache Unspecified 03/07/2010 ASHELY SPANGLERN, BOY J 532.30 Acute Duodenal Ulcer Without Hemorrhage Or Perforation Without Obstruction 03/07/2010 ASHELY SPANGLERN, BOY J 724.5 Backache Unspecified 03/07/2010 WHITE [...] PHILIPPE K 724.5 Backache Unspecified 03/07/2010 ASHELY 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, BOY J 532.30 Acute Duodenal Ulcer Without Hemorrhage Or Perforation Without Obstruction 03/07/2010 ASHELY 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, BOY J 724.5 Backache Unspecified 03/07/2010 ASHELY 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, BOY J 532.30 Acute Duodenal Ulcer Without Hemorrhage Or Perforation Without Obstruction 03/07/2010 ASHELY 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, BOY J 724.5 Backache Unspecified 03/07/2010 ASHELY 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, BOY J 532.30 Acute Duodenal Ulcer Without Hemorrhage Or Perforation Without Obstruction 03/07/2010 ASHELY 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, BOY J 724.5 Backache Unspecified 03/07/2010 ASHELY 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, BOY J 532.30 Acute Duodenal Ulcer Without Hemorrhage Or Perforation Without Obstruction 03/07/2010 ASHELY 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, BOY J 724.5 Backache Unspecified 03/07/2010 SALGUERO DO, PHILIPPE K 532.30 Acute Duodenal Ulcer Without Hemorrhage Or Perforation Without Obstruction 03/07/2010 SALGUERO DO, PHILIPPE K 724.5 Backache Unspecified 03/07/2010 SALGUERO DO, PHILIPPE K 532.30 Acute Duodenal Ulcer Without Hemorrhage Or Perforation Without Obstruction 03/07/2010 SALGUERO DO, PHILIPPE K 724.5 Backache Unspecified 03/07/2010 ASHELY 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, BOY J 532.30 Acute Duodenal Ulcer Without Hemorrhage Or Perforation Without Obstruction 03/07/2010 ASHELY 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, BOY J 724.5 Backache Unspecified 03/07/2010 ASHELY 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, BOY J 532.30 Acute Duodenal Ulcer Without Hemorrhage Or Perforation Without Obstruction 03/07/2010 ASHELY 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, BOY J 724.5 Backache Unspecified 03/07/2010 ASHELY 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, BOY J 532.30 Acute Duodenal Ulcer Without Hemorrhage Or Perforation Without Obstruction 03/07/2010 ASHELY 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, BOY J 724.5 Backache Unspecified 03/07/2010 SALGUERO DO, PHILIPPE K 532.30 Acute Duodenal Ulcer Without Hemorrhage Or Perforation Without Obstruction 03/07/2010 SALGUERO DO, PHILIPPE K 724.5 Backache Unspecified 03/07/2010 ASHELY 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, BOY J 532.30 Acute Duodenal Ulcer Without Hemorrhage Or Perforation Without Obstruction 03/07/2010 ASHELY 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, BOY J 724.5 Backache Unspecified 03/07/2010 IVET [facility], JACKIE R 532.30 Acute Duodenal Ulcer Without Hemorrhage Or Perforation Without Obstruction 03/07/2010 [facility], JACKIE R 724.5 Backache Unspecified 03/07/2010 SALGUERO DO, PHILIPPE K 532.30 Acute Duodenal Ulcer Without Hemorrhage Or Perforation Without Obstruction 03/07/2010 SALGUERO DO, PHILIPPE K 724.5 Backache Unspecified 03/07/2010 SALGUERO DO, PHILIPPE K 532.30 Acute Duodenal Ulcer Without Hemorrhage Or Perforation Without Obstruction 03/07/2010 SALGUERO DO, PHILIPPE K 724.5 Backache Unspecified 03/07/2010 MOY 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, CHRIS A 532.30 Acute Duodenal Ulcer Without Hemorrhage Or Perforation Without Obstruction 03/07/2010 MOY 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, CHRIS A 724.5 Backache Unspecified 03/07/2010 SALGUERO DO, PHILIPPE K 532.30 Acute Duodenal Ulcer Without Hemorrhage Or Perforation Without Obstruction 03/07/2010 SALGUERO DO, PHILIPPE K 724.5 Backache Unspecified 03/07/2010 ASHELY 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, BOY J 532.30 Acute Duodenal Ulcer Without Hemorrhage Or Perforation Without Obstruction 03/07/2010 ASHELY 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, BOY J 724.5 Backache Unspecified 03/07/2010 SALGUERO [...] PA-C 333.94 RESTLESS LEGS SYNDROME (RLS) 03/25/2010 ORACIO RAJAN-MAEVE Dwyer M 715.00 OSTEOARTHROSIS GENERALIZED INVOLVING UNSPECIFIED SITE 03/25/2010 [...] ATTENTION DEFICIT DISORDER WITHOUT HYPERACTIVITY 03/25/2010 ASHELY SPANGLERNBECKYBOY J 333.94 RESTLESS LEGS SYNDROME (RLS) 03/25/2010 [...] OSTEOARTHROSIS GENERALIZED INVOLVING UNSPECIFIED SITE 03/25/2010 ASHELY SPANGLERN BOY J 314.00 ATTENTION DEFICIT DISORDER WITHOUT HYPERACTIVITY 03/25/2010 ASHELY SPANGLERN, BOY J 333.94 RESTLESS LEGS SYNDROME (RLS) [...] OSTEOARTHROSIS GENERALIZED INVOLVING UNSPECIFIED SITE 03/25/2010 ASHELY SPANGLERN BOY J 314.00 ATTENTION DEFICIT DISORDER WITHOUT HYPERACTIVITY 03/25/2010 ASHELY SPANGLERN, BOY J 333.94 RESTLESS LEGS SYNDROME (RLS) 03/25/2010 ASHELY SPANGLERN BOY J 715.00 OSTEOARTHROSIS GENERALIZED INVOLVING UNSPECIFIED SITE 03/25/2010 ASHELY SPANGLERN, BOY J 314.00 ATTENTION DEFICIT DISORDER WITHOUT HYPERACTIVITY 03/25/2010 ASHELY SPANGLERN, BOY J 333.94 RESTLESS LEGS SYNDROME (RLS) [...] 333.94 RESTLESS LEGS SYNDROME (RLS) 03/25/2010 ASHELY VASQUES, BOY J 715.00 OSTEOARTHROSIS GENERALIZED INVOLVING UNSPECIFIED [...] 715.00 OSTEOARTHROSIS GENERALIZED INVOLVING UNSPECIFIED SITE 03/25/2010 [facility], JACKIE R 314.00 ATTENTION DEFICIT DISORDER WITHOUT HYPERACTIVITY 03/25/2010 [facility], JACKIE R 333.94 RESTLESS LEGS SYNDROME (RLS) 03/25/2010 [facility], JACKIE R 715.00 OSTEOARTHROSIS GENERALIZED INVOLVING UNSPECIFIED SITE 03/25/2010 SALGUERO DO, PHILIPPE K 314.00 ATTENTION DEFICIT DISORDER WITHOUT HYPERACTIVITY 03/25/2010 SALGUERO DO, PHILIPPE K 333.94 RESTLESS LEGS SYNDROME (RLS) 03/25/2010 SALGUEOR DO, PHILIPPE K 715.00 OSTEOARTHROSIS GENERALIZED INVOLVING [...] 715.00 OSTEOARTHROSIS GENERALIZED INVOLVING UNSPECIFIED SITE 03/25/2010 PHILIPPE SALGUERO DO 314.00 ATTENTION DEFICIT DISORDER WITHOUT HYPERACTIVITY 03/25/2010 PHILIPPE SALGUERO DO K 333.94 RESTLESS LEGS SYNDROME (RLS) 03/25/2010 PHILIPPE [...] TARDIVE DYSKINESIA DRUG-INDUCED 05/26/2010 PHILIPPE SALGUERO DO K 368.9 Unspecified Visual Disturbance 05/26/2010 PHILIPPE SALGUERO DO 333.85 TARDIVE DYSKINESIA DRUG-INDUCED 05/26/2010 PHILIPPE SALGUERO DO K 368.9 Unspecified Visual Disturbance 05/26/2010 333.85 TARDIVE [...] Unspecified Visual Disturbance 05/26/2010 PHILIPPE SALGUERO DO K 333.85 TARDIVE DYSKINESIA DRUG-INDUCED 05/26/2010 PHILIPPE SALGUERO DO K 368.9 Unspecified Visual Disturbance 05/26/2010 333.85 TARDIVE [...] J 368.9 Unspecified Visual Disturbance 05/26/2010 ASHELY 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, BOY J 333.85 TARDIVE DYSKINESIA DRUG-INDUCED 05/26/2010 ASHELY 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, BOY J 368.9 Unspecified Visual Disturbance 05/26/2010 SALGUERO DO, PHILIPPE K 333.85 TARDIVE DYSKINESIA DRUG-INDUCED 05/26/2010 SALGUERO DO, PHILIPPE K 368.9 Unspecified Visual Disturbance 05/26/2010 SALGUERO DO, PHILIPPE K 333.85 TARDIVE DYSKINESIA DRUG-INDUCED 05/26/2010 SALGUERO DO, PHILIPPE K 368.9 Unspecified Visual Disturbance 05/26/2010 ASHELY 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, BOY J 333.85 TARDIVE DYSKINESIA DRUG-INDUCED 05/26/2010 ASHELY 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, BOY J 368.9 Unspecified Visual Disturbance 05/26/2010 WHITE DDS, DEEDEE J 333.85 TARDIVE DYSKINESIA DRUG-INDUCED 05/26/2010 WHITE DDS, DEEDEE J 368.9 Unspecified Visual Disturbance 05/26/2010 WHITE DDS, DEEDEE J 333.85 TARDIVE DYSKINESIA DRUG-INDUCED 05/26/2010 WHITE DDS, DEEDEE J 368.9 Unspecified Visual Disturbance 05/26/2010 SALGUERO DO, PHILIPPE K 333.85 TARDIVE DYSKINESIA DRUG-INDUCED 05/26/2010 SALGUERO DO, PHILIPPE K 368.9 Unspecified Visual Disturbance 05/26/2010 ASHELY 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, BOY J 333.85 TARDIVE DYSKINESIA DRUG-INDUCED 05/26/2010 ASHELY 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, BOY J 368.9 Unspecified Visual Disturbance 05/26/2010 ASHELY 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, BOY J 333.85 TARDIVE DYSKINESIA DRUG-INDUCED 05/26/2010 ASHELY 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, BOY J 368.9 Unspecified Visual Disturbance 05/26/2010 ASHELY 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, BOY J 333.85 TARDIVE DYSKINESIA DRUG-INDUCED 05/26/2010 ASHELY 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, BOY J 368.9 Unspecified Visual Disturbance 05/26/2010 ASHELY 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, BOY J 333.85 TARDIVE DYSKINESIA DRUG-INDUCED 05/26/2010 ASHELY 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, BOY J 368.9 Unspecified Visual Disturbance 05/26/2010 SALGUERO DO, PHILIPPE K 333.85 TARDIVE DYSKINESIA DRUG-INDUCED 05/26/2010 SALGUERO DO, PHILIPPE K 368.9 Unspecified Visual Disturbance 05/26/2010 SALGUERO DO, PHILIPPE K 333.85 TARDIVE DYSKINESIA DRUG-INDUCED 05/26/2010 SALGUERO DO, PHILIPPE K 368.9 Unspecified Visual Disturbance 05/26/2010 ASHELY 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, BOY J 333.85 TARDIVE DYSKINESIA DRUG-INDUCED 05/26/2010 ASHELY 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, BOY J 368.9 Unspecified Visual Disturbance 05/26/2010 ASHELY VASQUES, BOY J 333.85 TARDIVE DYSKINESIA DRUG-INDUCED 05/26/2010 ASHELY VASQUES, BOY J 368.9 Unspecified Visual Disturbance 05/26/2010 ASHELY VASQUES, BOY J 333.85 TARDIVE DYSKINESIA DRUG-INDUCED 05/26/2010 ASHELY VASQUES, BOY J 368.9 Unspecified Visual Disturbance 05/26/2010 SALGUERO DO, PHILIPPE K 333.85 TARDIVE DYSKINESIA DRUG-INDUCED 05/26/2010 SALGUERO DO, PHILIPPE K 368.9 Unspecified Visual Disturbance 05/26/2010 ASHELY SPANGLERN, BOY J 333.85 TARDIVE DYSKINESIA DRUG-INDUCED 05/26/2010 ASHELY SPANGLERN, BOY J 368.9 Unspecified Visual Disturbance 05/26/2010 [facility], JACKIE R 333.85 TARDIVE DYSKINESIA DRUG-INDUCED 05/26/2010 [facility], JACKIE R 368.9 Unspecified Visual Disturbance 05/26/2010 SALGUERO DO, PHILIPPE K 333.85 TARDIVE DYSKINESIA DRUG-INDUCED 05/26/2010 SALGUERO DO, PHILIPPE K 368.9 Unspecified Visual Disturbance 05/26/2010 SALGUERO DO, PHILIPPE K 333.85 TARDIVE DYSKINESIA DRUG-INDUCED 05/26/2010 SALGUERO DO, PHILIPPE K 368.9 Unspecified Visual Disturbance 05/26/2010 CHRIS WINTER APRN 333.85 TARDIVE DYSKINESIA DRUG-INDUCED 05/26/2010 CHRIS WINTER APRN A 368.9 Unspecified Visual Disturbance 05/26/2010 SALGUERO DO, PHILIPPE K 333.85 TARDIVE DYSKINESIA DRUG-INDUCED 05/26/2010 SALGUERO DO PHILIPPE K 368.9 Unspecified Visual Disturbance 05/26/2010 ASHELY 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, BOY J 333.85 TARDIVE DYSKINESIA DRUG-INDUCED 05/26/2010 ASHELY 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, BOY J 368.9 Unspecified Visual Disturbance 05/26/2010 SALGUERO DO PHILIPPE K 333.85 TARDIVE DYSKINESIA DRUG-INDUCED 05/26/2010 SALGUERO DO, PHILIPPE K 368.9 Unspecified Visual Disturbance 07/22/2010 625.4 Premenstrual Tension Syndromes 07/22/2010 LOBO CHERY DDS 625.4 Premenstrual Tension Syndromes 07/22/2010 625.4 Premenstrual Tension Syndromes 07/22/2010 SALGUERO DO PHILIPPE K 625.4 Premenstrual Tension Syndromes 07/22/2010 SALGUERO DO PHILIPPE K 625.4 Premenstrual Tension Syndromes 07/22/2010 SALGUERO DO PHILIPPE K 625.4 Premenstrual Tension Syndromes 07/22/2010 625.4 Premenstrual Tension Syndromes 07/22/2010 625.4 Premenstrual Tension Syndromes 07/22/2010 625.4 Premenstrual Tension Syndromes 07/22/2010 625.4 Premenstrual Tension Syndromes 07/22/2010 625.4 Premenstrual Tension Syndromes 07/22/2010 625.4 Premenstrual Tension Syndromes 07/22/2010 SALGUERO DO PHILIPPE K 625.4 Premenstrual Tension Syndromes 07/22/2010 625.4 Premenstrual Tension Syndromes 07/22/2010 625.4 Premenstrual Tension Syndromes 07/22/2010 SALGUREO DO PHILIPPE K 625.4 Premenstrual Tension Syndromes [...] PA-C 625.4 Premenstrual Tension Syndromes 07/22/2010 SALGUERO DO, PHILIPPE K 625.4 Premenstrual Tension Syndromes 07/22/2010 WHITE DDS, DEEDEE J 625.4 Premenstrual Tension Syndromes 07/22/2010 ASHELY 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, BOY J 625.4 Premenstrual Tension Syndromes 07/22/2010 SALGUERO DO PHILIPPE K 625.4 Premenstrual Tension Syndromes 07/22/2010 SALGUERO DO, PHILIPPE K 625.4 Premenstrual Tension Syndromes 07/22/2010 ASHELY 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, BOY J 625.4 Premenstrual Tension Syndromes 07/22/2010 WHITE DDS, DEEDEE J 625.4 Premenstrual Tension Syndromes 07/22/2010 WHITE DDS, DEEDEE J 625.4 Premenstrual Tension Syndromes 07/22/2010 SALGUERO DO PHILIPPE K 625.4 Premenstrual Tension Syndromes 07/22/2010 ASHELY 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, BOY J 625.4 Premenstrual Tension Syndromes 07/22/2010 ASHELY 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, BOY J 625.4 Premenstrual Tension Syndromes 07/22/2010 ASHELY 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, BOY J 625.4 Premenstrual Tension Syndromes 07/22/2010 ASHELY 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, BOY J 625.4 Premenstrual Tension Syndromes 07/22/2010 SALGUERO DO PHILIPPE K 625.4 Premenstrual Tension Syndromes 07/22/2010 SALGUERO DO PHILIPPE K 625.4 Premenstrual Tension Syndromes 07/22/2010 ASHELY 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, BOY J 625.4 Premenstrual Tension Syndromes 07/22/2010 ASHELY 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, BOY J 625.4 Premenstrual Tension Syndromes 07/22/2010 ASHELY 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, BOY J 625.4 Premenstrual Tension Syndromes 07/22/2010 NOEMY OLVERA PHILIPPE K 625.4 Premenstrual Tension Syndromes 07/22/2010 ASHELY 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, BOY [place] 625.4 Premenstrual Tension Syndromes 07/22/[address] [facility], JACKIE Eastman 625.4 Premenstrual Tension Syndromes 07/22/2010 PHILIPPE SALGUERO DO K 625.4 Premenstrual Tension Syndromes 07/22/2010 SALGUERO DO PHILIPPE K 625.4 Premenstrual Tension Syndromes 07/22/2010 MOY 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, CHRIS [place] 625.4 Premenstrual Tension Syndromes 07/22/2010 PHILIPPE SALGUERO DO K 625.4 Premenstrual Tension Syndromes 07/22/2010 ASHELY 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, BOY [place] 625.4 Premenstrual Tension Syndromes 07/22/2010 TANISHA SALGUERO DOA K 625.4 Premenstrual Tension Syndromes 09/10/2010 706.1 Other Acne 09/10/2010 MIRI DEL VALLES, LOBO Curiel 706.1 Other Acne 09/10/2010 706.1 Other Acne 09/10/2010 PHILIPPE SALGUERO DO K 706.1 Other Acne 09/10/2010 TANISHA SALGUERO DOA K 706.1 Other Acne 09/10/2010 SALGUERO TANISHA OLVERAA K 706.1 Other Acne 09/10/2010 706.1 Other Acne 09/10/2010 706.1 Other Acne 09/10/2010 706.1 Other Acne 09/10/2010 706.1 Other Acne 09/10/2010 706.1 Other Acne 09/10/2010 706.1 Other Acne 09/10/2010 TANISHA SALGUERO DOA K 706.1 Other Acne 09/10/2010 706.1 Other Acne 09/10/2010 706.1 Other Acne 09/10/2010 TANISHA SALGUERO DOA K 706.1 Other Acne 09/10/2010 SALGUERO DO PHILIPPE K 706.1 Other Acne 09/10/2010 NOEMY OLVERA PHILIPPE K 706.1 Other Acne 09/10/2010 TANISHA SALGUERO DOA K 706.1 Other Acne 09/10/2010 TANISHA SALGUERO DOA K 706.1 Other Acne 09/10/2010 SALGUERO DO PHILIPPE K 706.1 Other Acne 09/10/2010 SALGUERO TANISHA OLVERAA K 706.1 Other Acne 09/10/2010 SALGUERO DO, PHILIPPE K 706.1 Other Acne 09/10/2010 SALGUERO DO, PHILIPPE K 706.1 Other Acne 09/10/2010 WHITE DDS, DEEDEE J 706.1 Other Acne 09/10/2010 ORACIO LUNSFORD, MAEVE Pan 706.1 Other Acne 09/10/2010 SALGUERO DO, PHILIPPE K 706.1 Other Acne 09/10/2010 WHITE DDS, DEEDEE J 706.1 Other Acne 09/10/2010 ASHELY 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, BOY J 706.1 Other Acne 09/10/2010 SALGUERO DO, PHILIPPE K 706.1 Other Acne 09/10/2010 SALGUERO DO, PHILIPPE K 706.1 Other Acne 09/10/2010 ASHELY 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, BOY J 706.1 Other Acne 09/10/2010 WHITE DDS, DEEDEE J 706.1 Other Acne 09/10/2010 WHITE DDS, DEEDEE J 706.1 Other Acne 09/10/2010 SALGUERO DO PHILIPPE K 706.1 Other Acne 09/10/2010 ASHELY 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, BOY J 706.1 Other Acne 09/10/2010 ASHELY 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, BOY J 706.1 Other Acne 09/10/2010 ASHELY 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, BOY J 706.1 Other Acne 09/10/2010 ASHELY 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, BOY J 706.1 Other Acne 09/10/2010 SALGUERO DO, PHILIPPE K 706.1 Other Acne 09/10/2010 SALGUERO DO, PHILIPPE K 706.1 Other Acne 09/10/2010 ASHELY 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, BOY J 706.1 Other Acne 09/10/2010 ASHELY 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, BOY J 706.1 Other Acne 09/10/2010 ASHELY 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, BOY J 706.1 Other Acne 09/10/2010 SALGUERO DO, PHILIPPE K 706.1 Other Acne 09/10/2010 ASHELY 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, BOY J 706.1 Other Acne 09/10/2010 JACKIE PACHECO 706.1 Other Acne 09/10/2010 SALGUERO DO PHILIPPE K 706.1 Other Acne 09/10/2010 SALGUERO DO PHILIPPE K 706.1 Other Acne 09/10/2010 CHRIS WINTER APRN 706.1 Other Acne 09/10/2010 SALGUERO DO, PHILIPPE K 706.1 Other Acne 09/10/2010 BOY LUND APRN 706.1 Other Acne 09/10/2010 SALGUERO DO, PHILIPPE K 706.1 Other Acne 11/20/2010 278.02 Overweight 11/20/2010 LOBO CHERY DDS 278.02 Overweight 11/20/2010 278.02 Overweight 11/20/2010 SALGUERO [...] 11/20/2010 WHITE DEEDEE JACOBSON 278.02 Overweight 11/20/2010 BOY LUND APRN 278.02 Overweight 11/20/2010 SALGUERO DO, PHILIPPE K 278.02 Overweight 11/20/2010 SALGUERO DO, PHILIPPE K 278.02 Overweight 11/20/2010 BOY LUND APRN 278.02 Overweight 11/20/2010 WHITE DDS, DEEDEE J 278.02 Overweight 11/20/2010 HAN DDS, DEEDEE J 278.02 Overweight 11/20/2010 SALGUERO DO, PHILIPPE K 278.02 Overweight 11/20/2010 ASHELY 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, BOY J 278.02 Overweight 11/20/2010 ASHELY 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, BOY J 278.02 Overweight 11/20/2010 ASHELY 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, BOY J 278.02 Overweight 11/20/2010 ASHELY 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, BOY J 278.02 Overweight 11/20/2010 SALGUERO DO, PHILIPPE K 278.02 Overweight 11/20/2010 SALGUERO DO, PHILIPPE K 278.02 Overweight 11/20/2010 ASHELY 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, BOY J 278.02 Overweight 11/20/2010 ASHELY 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, BOY J 278.02 Overweight 11/20/2010 ASHELY 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, BOY J 278.02 Overweight 11/20/2010 SALGUERO DO, PHILIPPE K 278.02 Overweight 11/20/2010 ASHELY 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, BOY J 278.02 Overweight 11/20/[address] [facility], JACKIE Eastman 278.02 Overweight 11/20/2010 SALGUERO DO, PHILIPPE K 278.02 Overweight 11/20/2010 SALGUERO DO, PHILIPPE K 278.02 Overweight 11/20/2010 CHRIS WINTER APRN 278.02 Overweight 11/20/2010 SALGUERO DO, PHILIPPE K 278.02 Overweight 11/20/2010 ASHELY 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, BOY J 278.02 Overweight 11/20/2010 SALGUERO DO, [...] PHILIPPE K 307.42 PERSISTENT INSOMNIA 12/01/2010 WHITE IVONSDEEDEE J 307.42 PERSISTENT INSOMNIA 12/01/2010 MAEVE NARAYANAN PA-C 307.42 PERSISTENT INSOMNIA 12/01/2010 SALGUERO DO, PHILIPPE K 307.42 PERSISTENT INSOMNIA 12/01/2010 HAN DEL VALLESDEEDEE J 307.42 PERSISTENT INSOMNIA 12/01/2010 ASHELY VASQUES, BOY J 307.42 PERSISTENT INSOMNIA 12/01/2010 SALGUERO DO, PHILIPPE K 307.42 PERSISTENT INSOMNIA 12/01/2010 SALGUERO DO, PHILIPPE K 307.42 PERSISTENT INSOMNIA 12/01/2010 ASHELY VASQUES, BOY J 307.42 PERSISTENT INSOMNIA 12/01/2010 HAN DDSDEEDEE J 307.42 PERSISTENT INSOMNIA 12/01/2010 WHITE DDS, DEEDEE J 307.42 PERSISTENT INSOMNIA 12/01/2010 SALGUERO DO, PHILIPPE K 307.42 PERSISTENT INSOMNIA 12/01/2010 ASHELY VASQUES, BOY J 307.42 PERSISTENT INSOMNIA 12/01/2010 ASHELY 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, BOY J 307.42 PERSISTENT INSOMNIA 12/01/2010 ASHELY 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, BOY J 307.42 PERSISTENT INSOMNIA 12/01/2010 ASHELY 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, BOY J 307.42 PERSISTENT INSOMNIA 12/01/2010 SALGUERO DO, PHILIPPE K 307.42 PERSISTENT INSOMNIA 12/01/2010 SALGUERO DO, PHILIPPE K 307.42 PERSISTENT INSOMNIA 12/01/2010 ASHELY VASQUES, BOY J 307.42 PERSISTENT INSOMNIA 12/01/2010 ASHELY SPANGLERN, BOY J 307.42 PERSISTENT INSOMNIA 12/01/2010 ASHELY SPANGLERN, BOY J 307.42 PERSISTENT INSOMNIA 12/01/2010 SALGUERO DO, PHILIPPE K 307.42 PERSISTENT INSOMNIA 12/01/2010 BOY LUND APRN J 307.42 PERSISTENT INSOMNIA 12/01/[address] [facility], JACKIE Eastman 307.42 PERSISTENT INSOMNIA 12/01/2010 SALGUERO DO, PHILIPPE K 307.42 PERSISTENT INSOMNIA 12/01/2010 SALGUERO DO, PHILIPPE K 307.42 PERSISTENT INSOMNIA 12/01/2010 CHRIS WITNER APRN 307.42 PERSISTENT INSOMNIA 12/01/2010 SALGUERO DO, [...] SALGUERO DO, PHILIPPE K 278.00 OBESITY 12/23/2010 DEEDEE SHORT DDS 278.00 OBESITY 12/23/2010 MAEVE NARAYANAN PA-C 278.00 OBESITY 12/23/2010 SALGUERO DO, PHILIPPE K 278.00 OBESITY 12/23/2010 WHITE DDS, DEEDEE J 278.00 OBESITY 12/23/2010 ASHELY 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, BOY J 278.00 OBESITY 12/23/2010 SALGUERO DO, PHILIPPE K 278.00 OBESITY 12/23/2010 SALGUERO DO, PHILIPPE K 278.00 OBESITY 12/23/2010 ASHELY 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, BOY J 278.00 OBESITY 12/23/2010 WHITE DDS, DEEDEE J 278.00 OBESITY 12/23/2010 WHITE DDS, DEEDEE J 278.00 OBESITY 12/23/2010 SALGUERO DO, PHILIPPE K 278.00 OBESITY 12/23/2010 ASHELY 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, BOY J 278.00 OBESITY 12/23/2010 ASHELY 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, BOY J 278.00 OBESITY 12/23/2010 ASHELY 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, BOY J 278.00 OBESITY 12/23/2010 ASHELY 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, BOY J 278.00 OBESITY 12/23/2010 SALGUERO DO, PHILIPPE K 278.00 OBESITY 12/23/2010 SALGUERO DO, PHILIPPE K 278.00 OBESITY 12/23/2010 ASHELY 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, BOY J 278.00 OBESITY 12/23/2010 ASHELY 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, BOY J 278.00 OBESITY 12/23/2010 ASHELY 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, BOY J 278.00 OBESITY 12/23/2010 SALGUERO DO, PHILIPPE K 278.00 OBESITY 12/23/2010 ASHELY 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, BOY J 278.00 OBESITY 12/23/2010 [facility], JACKIE R 278.00 OBESITY 12/23/2010 SALGUERO DO, PHILIPPE K 278.00 OBESITY 12/23/2010 SALGUERO DO, PHILIPPE K 278.00 OBESITY 12/23/2010 MOY VASQUES CHRIS A 278.00 OBESITY 12/23/2010 SALGUERO DO, PHILIPPE K 278.00 OBESITY 12/23/2010 ASHELY 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, BOY J 278.00 OBESITY 12/23/2010 SALGUERO DO, [...] DDS, DEEDEE J 782.61 Pallor 01/22/2011 ASHELY 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, BOY J 528.00 Stomatitis And Mucositis Unspecified 01/22/2011 ASHELY 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, BOY J 782.61 Pallor 01/22/2011 SALGUERO DO, [...] JUAREZ LUND APRNA J 782.61 Pallor 01/22/2011 BECKY LUND APRNINDA J 528.00 Stomatitis And Mucositis Unspecified 01/22/2011 BECKY LUND APRNINDA J 782.61 Pallor 01/22/2011 JUAREZ LUND APRNA J 528.00 Stomatitis And Mucositis Unspecified 01/22/2011 JUAREZ LUND APRNA J 782.61 Pallor 01/22/2011 JUAREZ LUND APRNA J [...] ASHELY VASQUES BOY J 782.61 Pallor 01/22/2011 BECKY LUND APRNINDA J 528.00 Stomatitis And Mucositis Unspecified 01/22/2011 ASHELY VASQUES, BOY J 782.61 Pallor 01/22/2011 ASHELY VASQUES, BOY J 528.00 Stomatitis And Mucositis Unspecified 01/22/2011 ASHELY VASQUES, BOY J 782.61 Pallor 01/22/2011 SALGUERO DO, PHILIPPE K 528.00 Stomatitis And Mucositis Unspecified 01/22/2011 SALGUERO DO, PHILIPPE K 782.61 Pallor 01/22/2011 ASHELY VASQUES, BOY J 528.00 Stomatitis And Mucositis Unspecified 01/22/2011 ASHELY VASQUES, BOY J 782.61 Pallor 01/22/2011 [facility], JACKIE R 528.00 Stomatitis And Mucositis Unspecified 01/22/2011 [facility], JACKIE R 782.61 Pallor 01/22/2011 SALGUERO DO, PHILIPPE K 528.00 Stomatitis And Mucositis Unspecified 01/22/2011 SALGUERO DO, PHILIPPE K 782.61 Pallor 01/22/2011 SALGUERO DO, PHILIPPE K 528.00 Stomatitis And Mucositis Unspecified 01/22/2011 SALGUERO DO, PHILIPPE K 782.61 Pallor 01/22/2011 MOY VASQUES CHRIS A 528.00 Stomatitis And Mucositis Unspecified 01/22/2011 MOY VASQUES CHRIS A 782.61 Pallor 01/22/2011 SALGUERO DO, PHILIPPE K 528.00 Stomatitis And Mucositis Unspecified 01/22/2011 SALGUERO DO, PHILIPPE K 782.61 Pallor 01/22/2011 JUAREZ LUND APRNA J 528.00 Stomatitis And Mucositis Unspecified 01/22/2011 ASHELY VASQUES, BOY J 782.61 Pallor 01/22/2011 SALGUERO DO, PHILIPPE K 528.00 Stomatitis And Mucositis Unspecified 01/22/2011 SALGUERO DO, PHILIPPE K 782.61 Pallor 03/05/2011 276.51 Dehydration 03/05/2011 726.31 MEDIAL EPICONDYLITIS 03/05/2011 V76.19 OTHER SCREENING BREAST EXAMINATION 03/05/2011 LOBO CHERY DDS 276.51 Dehydration 03/05/2011 MUOGHALU DDS, LOBO N 726.31 MEDIAL EPICONDYLITIS 03/05/2011 LISSAOGHALU DDS, LOBO N V76.19 OTHER SCREENING BREAST [...] J V76.19 OTHER SCREENING BREAST EXAMINATION 03/05/2011 BOY LUND APRN J 276.51 Dehydration 03/05/2011 BOY LUND APRN [...] V76.19 OTHER SCREENING BREAST EXAMINATION 03/05/2011 ASHELY VASQUES BOY J 276.51 Dehydration 03/05/2011 ASHELY VASQUES [...] K V76.19 OTHER SCREENING BREAST EXAMINATION 03/05/2011 JUAREZ LUND APRNA J 276.51 Dehydration 03/05/2011 BECKY LUND APRNINDA J 726.31 MEDIAL EPICONDYLITIS 03/05/2011 JUAREZ LUND [...] K V76.19 OTHER SCREENING BREAST EXAMINATION 03/05/2011 JUAREZ [...] K V76.19 OTHER SCREENING BREAST EXAMINATION 03/05/2011 JUAREZ LUND APRNA J 276.51 Dehydration 03/05/2011 JUAREZ LUND APRNA J 726.31 MEDIAL EPICONDYLITIS 03/05/2011 BOY LUND APRN V76.19 OTHER SCREENING BREAST EXAMINATION 03/05/2011 [facility], JACKIE R 276.51 Dehydration 03/05/2011 [facility], JACKIE R 726.31 MEDIAL EPICONDYLITIS 03/05/2011 [facility], JACKIE R V76.19 OTHER SCREENING BREAST EXAMINATION 03/05/2011 SALGUERO DO, PHILIPPE K 276.51 Dehydration 03/05/2011 SALGUERO DO, PHILIPPE K 726.31 MEDIAL EPICONDYLITIS 03/05/2011 SALGUERO DO, PHILIPPE K V76.19 OTHER SCREENING BREAST EXAMINATION 03/05/2011 SALGUERO DO, PHILIPPE K 276.51 Dehydration 03/05/2011 SALGUERO DO, PHILIPPE K 726.31 MEDIAL EPICONDYLITIS 03/05/2011 SALGUERO DO, PHILIPPE K V76.19 OTHER SCREENING BREAST EXAMINATION 03/05/2011 MOY VASQUES CHRIS A 276.51 Dehydration 03/05/2011 MOY VASQUES CHRIS A 726.31 MEDIAL EPICONDYLITIS 03/05/2011 CHRIS WINTER APRN V76.19 OTHER SCREENING BREAST EXAMINATION 03/05/2011 SALGUERO TANISHA OLVERAA K 276.51 Dehydration 03/05/2011 SALGUERO DO PHILIPPE K 726.31 MEDIAL EPICONDYLITIS 03/05/2011 SALGUERO DO PHILIPPE K V76.19 OTHER SCREENING BREAST EXAMINATION 03/05/2011 ASHELY 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, BOY J 276.51 Dehydration 03/05/2011 ASHELY 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, BOY J 726.31 MEDIAL EPICONDYLITIS 03/05/2011 ASHELY 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, BOY J V76.19 OTHER SCREENING BREAST EXAMINATION 03/05/2011 SALGUERO TANISHA OLVERAA K 276.51 Dehydration 03/05/2011 SALGUERO DO PHILIPPE K 726.31 MEDIAL EPICONDYLITIS 03/05/2011 TANISHA SALGUERO DOA K V76.19 OTHER SCREENING BREAST EXAMINATION 03/31/2011 112.1 Candidiasis Vaginal 03/31/2011 611.72 Breast Lump Or Mass 03/31/2011 616.10 Vaginitis 03/31/2011 782.3 Edema 03/31/2011 V76.10 BREAST CANCER SCREENING 03/31/2011 V76.2 CERVICAL CANCER SCREENING (PAP SMEAR) 03/31/2011 DACIAHALLamar DDS, LOBO N 112.1 Candidiasis Vaginal 03/31/2011 MIRI DEL VALLES, LOBO N 611.72 Breast Lump Or Mass 03/31/2011 DACIAHALLamar DDS, LOBO N 616.10 Vaginitis 03/31/2011 MUYOBANIHALU DDS, LOBO N 782.3 Edema 03/31/2011 DACIAHALLamar DEL VALLES, LOBO N V76.10 BREAST CANCER SCREENING 03/31/2011 DACIAHALLamar DEL VALLES, LOBO N V76.2 CERVICAL CANCER SCREENING (PAP [...] NOEMY DO PHILIPPE K 616.10 Vaginitis 03/31/2011 TANISHA SALGUERO [...] DO PHILIPPE K 782.3 Edema 03/31/2011 SALGUERO DO, [...] HAN DDS, DEEDEE J 782.3 Edema 03/31/2011 WHITE [...] CERVICAL CANCER SCREENING (PAP SMEAR) 03/31/2011 HAN DDSDEEDEE J 112.1 Candidiasis Vaginal 03/31/2011 WHITE DDS, DEEDEE J 611.72 Breast Lump Or Mass 03/31/2011 WHITE DDS, DEEDEE J 616.10 Vaginitis 03/31/2011 HAN DDS, DEEDEE J 782.3 Edema 03/31/2011 HAN DDS, DEEDEE J V76.10 BREAST CANCER SCREENING 03/31/2011 HAN DDS, DEEDEE J V76.2 CERVICAL CANCER SCREENING (PAP SMEAR) 03/31/2011 BOY LUND APRN 112.1 Candidiasis Vaginal 03/31/2011 BOY LUND APRN J 611.72 Breast Lump Or Mass 03/31/2011 BOY LUND APRN 616.10 Vaginitis 03/31/2011 BOY LUND APRN J [...] APRN 616.10 Vaginitis 03/31/2011 BOY LUND APRN J [...] PHILIPPE SALGUERO DO K 616.10 Vaginitis 03/31/2011 PIHLIPPE SALGUERO DO K 782.3 Edema 03/31/2011 PHILIPPE SALGUERO DO V76.10 BREAST CANCER SCREENING 03/31/2011 TANISHA SALGUERO DOA K V76.2 CERVICAL CANCER SCREENING (PAP SMEAR) 03/31/2011 JUAREZ LUND APRNA J 112.1 Candidiasis Vaginal 03/31/2011 JUAREZ LUND APRNA J 611.72 Breast Lump Or Mass 03/31/2011 JUAREZ LUND APRNA J 616.10 Vaginitis 03/31/2011 JUAREZ LUND APRNA J 782.3 Edema 03/31/2011 JUAREZ LUND APRNA Marine V76.10 BREAST CANCER SCREENING 03/31/2011 ASHELY VASQUES BOY J V76.2 CERVICAL CANCER SCREENING (PAP SMEAR) 03/31/2011 ASHELY VASQUES BOY J 112.1 Candidiasis Vaginal 03/31/2011 JUAREZ LUND APRNA J 611.72 Breast Lump Or Mass 03/31/2011 JUAREZ LUND APRNA J 616.10 Vaginitis 03/31/2011 BECKY LUND APRNINDA J 782.3 Edema 03/31/2011 JUAREZ LUND APRNA J V76.10 BREAST CANCER SCREENING 03/31/2011 JUAREZ LUND APRNA J V76.2 CERVICAL CANCER SCREENING (PAP SMEAR) 03/31/2011 JUAREZ LUND APRNA J 112.1 Candidiasis Vaginal 03/31/2011 JUAREZ LUND APRNA J 611.72 Breast Lump Or Mass 03/31/2011 JUAREZ LUND APRNA J 616.10 Vaginitis 03/31/2011 JUAREZ LUND APRNA J 782.3 Edema 03/31/2011 BOY LUND APRN V76.10 BREAST CANCER SCREENING 03/31/2011 JUAREZ LUND APRNA J V76.2 CERVICAL CANCER SCREENING (PAP SMEAR) 03/31/2011 JUAREZ LUND APRNA J 112.1 Candidiasis Vaginal 03/31/2011 BOY LUND APRN 611.72 Breast Lump Or Mass 03/31/2011 JUAREZ LUND APRNA J 616.10 Vaginitis 03/31/2011 BOY LUND APRN 782.3 Edema 03/31/2011 BOY LUND APRN V76.10 BREAST CANCER SCREENING 03/31/2011 BOY LUND APRN V76.2 CERVICAL CANCER SCREENING (PAP SMEAR) 03/31/2011 SALGUERO DO, PHILIPPE K 112.1 Candidiasis Vaginal 03/31/2011 SALGUERO DO, PHILIPPE K 611.72 Breast Lump Or Mass 03/31/2011 SALGUERO DO, PHILIPPE K 616.10 Vaginitis 03/31/2011 SALGUERO , PHILIPPE K 782.3 Edema 03/31/2011 SALGUERO DO PHILIPPE K V76.10 BREAST CANCER SCREENING 03/31/2011 NOEMY OLVERA PHILIPPE K V76.2 CERVICAL CANCER SCREENING (PAP SMEAR) 03/31/2011 SALGUERO DO, PHILIPPE K 112.1 Candidiasis Vaginal 03/31/2011 SALGUERO DO, PHILIPPE K 611.72 Breast Lump Or Mass 03/31/2011 SALGUERO DO, PHILIPPE K 616.10 Vaginitis 03/31/2011 SALGUERO , PHILIPPE K 782.3 Edema 03/31/2011 SALGUERO DO, PHILIPPE K V76.10 BREAST CANCER SCREENING 03/31/2011 SALGUERO , PHILIPPE K V76.2 CERVICAL CANCER SCREENING (PAP [...] 03/31/2011 BOY LUND APRN 616.10 Vaginitis 03/31/2011 BYO LUND APRN 782.3 Edema 03/31/2011 BOY LUND APRN V76.10 BREAST CANCER SCREENING 03/31/2011 BOY LUND APRN V76.2 CERVICAL CANCER SCREENING (PAP SMEAR) 03/31/2011 [facility], JACKIE R 112.1 Candidiasis Vaginal 03/31/2011 [facility], JACKIE R 611.72 Breast Lump Or Mass 03/31/2011 [facility], JACKIE R 616.10 Vaginitis 03/31/2011 [facility], JACKIE R 782.3 Edema 03/31/2011 [facility], JACKIE R V76.10 BREAST CANCER SCREENING 03/31/2011 [facility], [place]IE R V76.2 CERVICAL CANCER SCREENING [...] A 611.72 Breast Lump Or Mass 03/31/2011 MOY 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, CHRIS A 616.10 Vaginitis 03/31/2011 MOYVeena VASQUES CHRIS A 782.3 Edema 03/31/2011 MOY 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, CHRIS A V76.10 BREAST CANCER SCREENING 03/31/2011 CHRIS WINTER APRN V76.2 CERVICAL CANCER SCREENING (PAP SMEAR) 03/31/2011 PHILIPPE SALGUERO DO 112.1 Candidiasis Vaginal 03/31/2011 PHILIPPE SALGUERO DO K 611.72 Breast Lump Or Mass 03/31/2011 PHILIPPE SALGUERO DO K 616.10 Vaginitis 03/31/2011 PHILIPPE SALGUERO DO 782.3 [...] K 616.10 Vaginitis 03/31/2011 PHILIPPE SALGUERO DO 782.3 [...] LOBO CHERY DDS 799.22 Affect Irritable 04/23/2011 MUOGHALU DDS, LOBO N V58.69 taking high-risk medication 04/23/2011 MIRI JACOBSON, [...] DEEDEE J 724.4 LUMBAR RADICULOPATHY 04/23/2011 WHITE DDSSARABJITON J 799.22 Affect Irritable 04/23/2011 WHITE DDSDEEDEE [...] DDS, DEEDEE J 799.22 Affect Irritable 04/23/2011 HAN DEL VALLESDEEDEE J V58.69 taking high-risk medication 04/23/2011 HAN DEL VALLESDEEDEE J V70.0 Preventive Medicine Estab Patient Checkup Adult 40-64 04/23/2011 SALGUERO DO PHILIPPE K 724.4 LUMBAR RADICULOPATHY 04/23/2011 SALGUERO PHILIPPE K 799.22 Affect Irritable 04/23/2011 TANISHA SALGUERO DOA K V58.69 taking high-risk medication 04/23/2011 SALGUERO PHILIPPE K V70.0 Preventive Medicine Estab Patient [...] BOY LUND APRN 724.4 LUMBAR RADICULOPATHY 04/23/2011 JUAREZ LUND APRNA [...] Medicine Estab Patient Checkup Adult 40-64 04/23/2011 [facility], JACKIE R 724.4 LUMBAR RADICULOPATHY 04/23/2011 [facility], JACKIE R 799.22 Affect Irritable 04/23/2011 [facility], [place]ACKIE R V58.69 taking high-risk medication 04/23/2011 [facility], [place]ACKIE R V70.0 Preventive Medicine Estab Patient [...] 799.22 Affect Irritable 04/23/2011 CHRIS WINTER APRN A V58.69 taking high-risk medication 04/23/2011 CHRIS WINTER APRN A V70.0 Preventive Medicine Estab Patient Checkup Adult 40-64 04/23/2011 TANISHA SALGUERO DOA K 724.4 LUMBAR RADICULOPATHY 04/23/2011 PHILIPPE SALGUERO DO K 799.22 Affect Irritable 04/23/2011 SALGUERO DO, PHILIPPE K V58.69 taking high-risk medication 04/23/2011 SALGUERO DO PHILIPPE K V70.0 Preventive Medicine Estab Patient Checkup Adult 40-64 04/23/2011 ASHELY VASQUES, BOY J 724.4 LUMBAR RADICULOPATHY 04/23/2011 ASHELY 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, BOY J 799.22 Affect Irritable 04/23/2011 ASHELY 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, BOY J V58.69 taking high-risk medication 04/23/2011 ASHELY 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, BOY J V70.0 Preventive Medicine Estab Patient [...] 05/07/2011 477.9 Rhinitis 05/07/2011 564.00 CONSTIPATION 05/07/2011 MIRI DEL VALLES, LOBO N 112.1 CANDIDIASIS VAGINAL 05/07/2011 MIRI DDS, LOBO N 276.51 DEHYDRATION (Na, H2O) 05/07/2011 MIRI DEL VALLES, LOBO N 477.9 Rhinitis 05/07/2011 MIRI DEL VALLES, LOBO N 564.00 CONSTIPATION 05/07/2011 112.1 CANDIDIASIS [...] DDS, DEEDEE J 477.9 Rhinitis 05/07/2011 WHITE IVONSDEEDEE J 564.00 CONSTIPATION 05/07/2011 MAEVE NARAYANAN PA-C 112.1 CANDIDIASIS VAGINAL 05/07/2011 MAEVE NARAYANAN PA-C 276.51 DEHYDRATION (Na, H2O) 05/07/2011 MAEVE NARAYANAN PA-C 477.9 Rhinitis 05/07/2011 MAEVE NARAYANAN PA-C 564.00 CONSTIPATION 05/07/2011 SALGUERO DO, PHILIPPE K 112.1 CANDIDIASIS VAGINAL 05/07/2011 TANISHA SALGUERO DOA K 276.51 DEHYDRATION (Na, H2O) 05/07/2011 TANISHA SALGUERO DOA K 477.9 Rhinitis 05/07/2011 SALGUERO DO, PHILIPPE K 564.00 CONSTIPATION 05/07/2011 WHITE DDS, DEEDEE J 112.1 CANDIDIASIS VAGINAL 05/07/2011 WHITE DDS, DEEDEE J 276.51 DEHYDRATION (Na, H2O) 05/07/2011 WHITE DDS, DEEDEE J 477.9 Rhinitis 05/07/2011 WHITE DDS, DEEDEE J 564.00 CONSTIPATION 05/07/2011 BOY LUND APRN 112.1 CANDIDIASIS VAGINAL 05/07/2011 BOY LUND APRN 276.51 DEHYDRATION (Na, H2O) 05/07/2011 BOY LUND APRN 477.9 Rhinitis 05/07/2011 ASHELY 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, BOY J 564.00 CONSTIPATION 05/07/2011 SALGUERO DO, [...] 112.1 CANDIDIASIS VAGINAL 05/07/2011 BOY LUND APRN 276.51 DEHYDRATION (Na, H2O) 05/07/2011 BOY LUND APRN 477.9 Rhinitis 05/07/2011 BOY LUND APRN 564.00 CONSTIPATION 05/07/2011 WHITE DDS, DEEDEE J [...] LUND APRN J 477.9 Rhinitis 05/07/2011 ASHELY 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, BOY J 564.00 CONSTIPATION 05/07/2011 ASHELY SPANGLERNJUAREZA J 112.1 CANDIDIASIS VAGINAL 05/07/2011 BOY LUND APRN J 276.51 DEHYDRATION (Na, H2O) 05/07/2011 JUAREZ LUND APRNA J 477.9 Rhinitis 05/07/2011 ASHELY SPANGLERNJUAREZA J 564.00 CONSTIPATION 05/07/2011 ASHELY SPANGLERNJUAREZA J 112.1 CANDIDIASIS VAGINAL 05/07/2011 JUAREZ LUND APRNA J 276.51 DEHYDRATION (Na, H2O) 05/07/2011 JUAREZ LUND APRNA J 477.9 Rhinitis 05/07/2011 JUAREZ LUND APRNA J 564.00 CONSTIPATION 05/07/2011 JUAREZ LUND APRNA J 112.1 CANDIDIASIS VAGINAL 05/07/2011 JUAREZ LUND APRNA J 276.51 DEHYDRATION (Na, H2O) 05/07/2011 BOY LUND APRN 477.9 Rhinitis 05/07/2011 JUAREZ LUND APRNA J [...] JUAREZ LUND APRNA J 477.9 Rhinitis 05/07/2011 BECKY LUND APRNINDA J 564.00 CONSTIPATION 05/07/2011 JUAREZ LUND APRNA J 112.1 CANDIDIASIS VAGINAL 05/07/2011 BOY LUND APRN J 276.51 DEHYDRATION (Na, H2O) 05/07/2011 BOY LUND APRN 477.9 Rhinitis 05/07/2011 ASHELY 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, BOY J 564.00 CONSTIPATION 05/07/2011 BOY LUND APRN [...] LUND APRN J 112.1 CANDIDIASIS VAGINAL 05/07/2011 JUAREZ LUND APRNA J 276.51 DEHYDRATION (Na, H2O) 05/07/2011 BOY LUND APRN 477.9 Rhinitis 05/07/2011 BOY LUND APRN J 564.00 CONSTIPATION 05/07/2011 [facility], JACKIE R 112.1 CANDIDIASIS VAGINAL 05/07/2011 [facility], [place]ACKIE R 276.51 DEHYDRATION (Na, H2O) 05/07/2011 [facility], [place]IE R 477.9 Rhinitis 05/07/2011 [facility], [place] R 564.00 CONSTIPATION 05/07/2011 SALGUERO [...] A 276.51 DEHYDRATION (Na, H2O) 05/07/2011 MOY 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, CHRIS A 477.9 Rhinitis 05/07/2011 MOY 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, CHRIS A 564.00 CONSTIPATION 05/07/2011 SALGUERO DO, PHILIPPE K 112.1 CANDIDIASIS VAGINAL 05/07/2011 SALGUERO DO, PHILIPPE K 276.51 DEHYDRATION (Na, H2O) 05/07/2011 SALGUERO DO, PHILIPPE K 477.9 Rhinitis 05/07/2011 SALGUERO DO, PHILIPPE K 564.00 CONSTIPATION 05/07/2011 ASHELY 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, BOY J 112.1 CANDIDIASIS VAGINAL 05/07/2011 ASHELY 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, BOY J 276.51 DEHYDRATION (Na, H2O) 05/07/2011 ASHELY 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, BOY J 477.9 Rhinitis 05/07/2011 ASHELY 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, BOY J 564.00 CONSTIPATION 05/07/2011 SALGUERO DO, PHILIPPE K 112.1 CANDIDIASIS VAGINAL 05/07/2011 SALGUERO DO, PHILIPPE K 276.51 DEHYDRATION (Na, H2O) 05/07/2011 SALGUERO DO, PHILIPPE K 477.9 Rhinitis 05/07/2011 SALGUERO DO, PHILIPPE K 564.00 CONSTIPATION 05/25/2011 338.29 OTHER CHRONIC PAIN 05/25/2011 MIRI JACOBSON, LOBO Curiel 338.29 OTHER CHRONIC PAIN 05/25/2011 338.29 OTHER CHRONIC PAIN 05/25/2011 SALGUERO DO, PHILIPPE K 338.29 OTHER CHRONIC PAIN 05/25/2011 SALGUERO DO PHILIPPE K 338.29 OTHER CHRONIC PAIN 05/25/2011 SALGUERO DO PHILIPPE K 338.29 OTHER CHRONIC PAIN 05/25/2011 338.29 OTHER CHRONIC PAIN 05/25/2011 338.29 OTHER CHRONIC PAIN 05/25/2011 338.29 OTHER CHRONIC PAIN 05/25/2011 338.29 OTHER CHRONIC PAIN 05/25/2011 338.29 OTHER CHRONIC PAIN 05/25/2011 338.29 OTHER CHRONIC PAIN 05/25/2011 SALGUERO DO, PHILIPPE K 338.29 OTHER CHRONIC PAIN 05/25/2011 338.29 OTHER CHRONIC PAIN 05/25/2011 338.29 OTHER CHRONIC PAIN 05/25/2011 SALGUERO DO PHILIPPE K 338.29 OTHER CHRONIC PAIN 05/25/2011 SALGUERO DO, PHILIPPE K 338.29 OTHER CHRONIC PAIN 05/25/2011 SALGUERO DO PHILIPPE K 338.29 OTHER CHRONIC PAIN 05/25/2011 [...] APRNA J 338.29 OTHER CHRONIC PAIN 05/25/2011 [facility], [place] R 338.29 OTHER CHRONIC PAIN 05/25/2011 SALGUERO DO, PHILIPPE K 338.29 OTHER CHRONIC PAIN 05/25/2011 SALGUERO DO, PHILIPPE K 338.29 OTHER CHRONIC PAIN 05/25/2011 MOY SPANGLERNCHRIS 338.29 OTHER CHRONIC PAIN 05/25/2011 SALGUERO DO, PHILIPPE K 338.29 OTHER CHRONIC PAIN 05/25/2011 ASHELY VASQUES BOY J 338.29 OTHER CHRONIC PAIN 05/25/2011 SALGUERO DO, PHILIPPE K 338.29 OTHER CHRONIC PAIN 05/30/2011 522.5 PERIAPICAL ALVEOLAR ABSCESS 05/30/2011 MIRI JACOBSON, LOBO Curiel 522.5 PERIAPICAL ALVEOLAR ABSCESS 05/30/2011 [...] Pan 522.5 PERIAPICAL ALVEOLAR ABSCESS 05/30/2011 SALGUERO DO PHILIPPE K 522.5 PERIAPICAL ALVEOLAR ABSCESS 05/30/2011 WHITE DDS, DEEDEE J 522.5 PERIAPICAL ALVEOLAR ABSCESS 05/30/2011 ASHELY 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, BOY J 522.5 PERIAPICAL ALVEOLAR ABSCESS 05/30/2011 SALGUERO DO, PHILIPPE K 522.5 PERIAPICAL ALVEOLAR ABSCESS 05/30/2011 SALGUERO DO, PHILIPPE K 522.5 PERIAPICAL ALVEOLAR ABSCESS 05/30/2011 ASHELY 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, BOY J 522.5 PERIAPICAL ALVEOLAR ABSCESS 05/30/2011 WHITE DDS, DEEDEE J 522.5 PERIAPICAL ALVEOLAR ABSCESS 05/30/2011 WHITE DDS, DEEDEE J 522.5 PERIAPICAL ALVEOLAR ABSCESS 05/30/2011 SALGUERO DO PHILIPPE K 522.5 PERIAPICAL ALVEOLAR ABSCESS 05/30/2011 ASHELY 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, BOY J 522.5 PERIAPICAL ALVEOLAR ABSCESS 05/30/2011 ASHELY 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, BOY J 522.5 PERIAPICAL ALVEOLAR ABSCESS 05/30/2011 ASHELY 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, BOY J 522.5 PERIAPICAL ALVEOLAR ABSCESS 05/30/2011 ASHELY 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, BOY J 522.5 PERIAPICAL ALVEOLAR ABSCESS 05/30/2011 SALGUERO DOTANISHAA K 522.5 PERIAPICAL ALVEOLAR ABSCESS 05/30/2011 SALGUERO DO PHILIPPE K 522.5 PERIAPICAL ALVEOLAR ABSCESS 05/30/2011 ASHELY 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, BOY J 522.5 PERIAPICAL ALVEOLAR ABSCESS 05/30/2011 ASHELY 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, BOY J 522.5 PERIAPICAL ALVEOLAR ABSCESS 05/30/2011 ASHELY 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, BOY J 522.5 PERIAPICAL ALVEOLAR ABSCESS 05/30/2011 SALGUERO DO, PHILIPPE K 522.5 PERIAPICAL ALVEOLAR ABSCESS 05/30/2011 ASHELY 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, BOY J 522.5 PERIAPICAL ALVEOLAR ABSCESS 05/30/2011 IVET DIANE, JACKIE Eastman 522.5 PERIAPICAL ALVEOLAR ABSCESS 05/30/2011 SALGUERO DO, PHILIPPE K 522.5 PERIAPICAL ALVEOLAR ABSCESS 05/30/2011 SALGUERO DO, PHILIPPE K 522.5 PERIAPICAL ALVEOLAR ABSCESS 05/30/2011 CHRIS WINTER APRN A 522.5 PERIAPICAL ALVEOLAR ABSCESS 05/30/2011 SALGUERO DO, PHILIPPE K 522.5 PERIAPICAL ALVEOLAR ABSCESS 05/30/2011 BOY LUND APRN 522.5 PERIAPICAL ALVEOLAR ABSCESS 05/30/2011 SALGUERO DO, [...] V65.42 Patient Education - Alcohol 06/29/2011 SALGUERO DOTANISHAA K 278.02 Overweight 06/29/2011 SALGUERO DOTANISHAA K 584.9 Acute Renal Failure 06/29/2011 SALGUERO DOTANISHAA K 780.8 Excessive Sweating 06/29/2011 SALGUERO DOTANISHAA [...] 06/29/2011 V65.42 Patient Education - Alcohol 06/29/2011 PHILIPPE SALGUERO DO K 278.02 Overweight 06/29/2011 PHILIPPE SALGUERO DO K 584.9 Acute Renal Failure 06/29/2011 PHILIPPE SALGUERO DO K 780.8 Excessive Sweating 06/29/2011 PHILIPPE SALGUERO DO K 786.05 Shortness Of Breath 06/29/2011 SALGUERO [...] DO, PHILIPPE K 780.8 Excessive Sweating 06/29/2011 ASLGUERO DO, PHILIPPE K 786.05 Shortness Of Breath [...] Education - Alcohol 06/29/2011 MAEVE NARAYANAN PA-C M 278.02 Overweight 06/29/2011 MAEVE NARAYANAN PA-C 584.9 Acute Renal Failure 06/29/2011 MAEVE NARAYANAN PA-C M 780.8 Excessive Sweating 06/29/2011 MAEVE NARAYANAN PA-C M 786.05 Shortness Of Breath 06/29/2011 MAEVE NARAYANAN [...] APRNA J 584.9 Acute Renal Failure 06/29/2011 ASHELY SPANGLERNJUAREZA J 780.8 Excessive Sweating 06/29/2011 JUAREZ LUND APRNA J 786.05 Shortness Of Breath 06/29/2011 ASHELY SPANGLERN, BOY J V65.42 Patient Education - Alcohol 06/29/2011 SALGUERO DO, PHILIPPE K 278.02 Overweight 06/29/2011 SALGUERO DO PHILIPPE K 584.9 Acute Renal Failure 06/29/2011 SALGUERO DO, PHILIPPE K 780.8 Excessive Sweating 06/29/2011 SALGUREO DO, PHILIPPE K 786.05 Shortness Of Breath 06/29/2011 SALGUERO DO, PHILIPPE K V65.42 Patient Education - Alcohol 06/29/2011 SALGUERO DO PHILIPPE K 278.02 Overweight 06/29/2011 SALGUERO DO, PHILIPPE K 584.9 Acute Renal Failure 06/29/2011 SALGUERO DO, PHILIPPE K 780.8 Excessive Sweating 06/29/2011 SALGUERO DO, PHILIPPE K 786.05 Shortness Of Breath 06/29/2011 SALGUERO DO, PHILIPPE K V65.42 Patient Education - Alcohol 06/29/2011 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, BOY J 278.02 Overweight 06/29/2011 ASHELY 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, BOY J 584.9 Acute Renal Failure 06/29/2011 ASHELY 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, BOY J 780.8 Excessive Sweating 06/29/2011 ASHELY 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, BOY J 786.05 Shortness Of Breath 06/29/2011 ASHELY 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, BOY J V65.42 Patient Education - Alcohol [...] V65.42 Patient Education - Alcohol 06/29/2011 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, 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 J 278.02 Overweight 06/29/2011 ASHELY 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BECKYBOY J 584.9 Acute Renal Failure 06/29/2011 ASHELY 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 BOY J 780.8 Excessive Sweating 06/29/2011 ASHELY 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 BOY J 786.05 Shortness Of Breath 06/29/2011 BOY [...] APRN 584.9 Acute Renal Failure 06/29/2011 BOY LNUD APRN 780.8 Excessive Sweating 06/29/2011 BOY LUND APRN 786.05 Shortness Of Breath 06/29/2011 BOY LUND APRN V65.42 Patient Education - Alcohol 06/29/2011 BOY LUND APRN 278.02 Overweight 06/29/2011 BOY LUND APRN 584.9 Acute Renal Failure 06/29/2011 BOY LUND APRN 780.8 Excessive Sweating 06/29/2011 BYO LUND APRN 786.05 Shortness Of Breath 06/29/2011 [...] SALGUERO DOA K 780.8 Excessive Sweating 06/29/2011 PHILIPPE SALGUERO DO K 786.05 Shortness Of Breath 06/29/2011 TANISHA SALGUERO DOA K V65.42 Patient Education - Alcohol 06/29/2011 BOY LUND APRN 278.02 Overweight 06/29/2011 BOY LUND APRN 584.9 Acute Renal Failure 06/29/2011 BOY LUND APRN 780.8 Excessive Sweating 06/29/2011 BOY LUND APRN 786.05 Shortness Of Breath 06/29/2011 BOY LUND APRN V65.42 Patient Education - [facility]29[facility]/29[facility]2011 [facility] Acute Renal Failure 06/29/2011 [facility], JACKIE R 780.8 Excessive Sweating 06/29/2011 [facility], JACKIE R 786.05 Shortness Of Breath 06/29/2011 [facility], JACKIE R V65.42 Patient Education - [...] V65.42 Patient Education - Alcohol 06/29/2011 MOY 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, CHRIS A 278.02 Overweight 06/29/2011 MOY 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, CHRIS A 584.9 Acute Renal Failure 06/29/2011 MOY 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, CHRIS A 780.8 Excessive Sweating 06/29/2011 MOY 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, CHRIS A 786.05 Shortness Of Breath 06/29/2011 MOY 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, CHRIS A V65.42 Patient Education - Alcohol [...] 780.8 Excessive Sweating 06/29/2011 BOY LUND APRN J 786.05 Shortness Of Breath 06/29/2011 BOY LUND APRN V65.42 Patient Education - Alcohol 06/29/2011 SALGUERO DO, PHILIPPE K 278.02 Overweight 06/29/2011 SALGUERO DO, PHILIPPE K 584.9 Acute Renal Failure 06/29/2011 SALGUERO DO, PHILIPPE K 780.8 Excessive Sweating 06/29/2011 SALGUERO DO, PHILIPPE K 786.05 Shortness Of Breath 06/29/2011 SALGUERO DO, PHILIPPE K V65.42 Patient Education - Alcohol 07/31/2011 564.00 UNSPECIFIED CONSTIPATION 07/31/2011 LOBO CHERY DDS 564.00 UNSPECIFIED CONSTIPATION 07/31/2011 564.00 UNSPECIFIED CONSTIPATION [...] VALLES, DEEDEE [place]thorne 564.00 UNSPECIFIED CONSTIPATION 07/31/2011 ORACIO LUNSFORD, MAEVE Pan 564.00 UNSPECIFIED CONSTIPATION 07/31/2011 SALGUERO DO, PHILIPPE K 564.00 UNSPECIFIED CONSTIPATION 07/31/2011 WHITE DDS, DEEDEE J 564.00 UNSPECIFIED CONSTIPATION 07/31/2011 ASHE[employer] 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, BOY J 564.00 UNSPECIFIED CONSTIPATION 07/31/2011 SALGUERO DO, PHILIPPE K 564.00 UNSPECIFIED CONSTIPATION 07/31/2011 SALGUERO DO, PHILIPPE K 564.00 UNSPECIFIED CONSTIPATION 07/31/2011 ASHLEY 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, BOY J 564.00 UNSPECIFIED CONSTIPATION 07/31/2011 WHITE DDS, DEEDEE J 564.00 UNSPECIFIED CONSTIPATION 07/31/2011 WHITE DDS, DEEDEE J 564.00 UNSPECIFIED CONSTIPATION 07/31/2011 SALGUERO DO, PHILIPPE K 564.00 UNSPECIFIED CONSTIPATION 07/31/2011 ASHELY 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, BOY J 564.00 UNSPECIFIED CONSTIPATION 07/31/2011 ASHELY 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, BOY J 564.00 UNSPECIFIED CONSTIPATION 07/31/2011 ASHELY 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, BOY J 564.00 UNSPECIFIED CONSTIPATION 07/31/2011 ASHELY 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, BOY J 564.00 UNSPECIFIED CONSTIPATION 07/31/2011 SALGUERO DO, PHILIPPE K 564.00 UNSPECIFIED CONSTIPATION 07/31/2011 SALGUERO DO, PHILIPPE K 564.00 UNSPECIFIED CONSTIPATION 07/31/2011 ASHELY 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, BOY J 564.00 UNSPECIFIED CONSTIPATION 07/31/2011 ASHELY 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, BOY J 564.00 UNSPECIFIED CONSTIPATION 07/31/2011 ASHELY 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, BOY J 564.00 UNSPECIFIED CONSTIPATION 07/31/2011 SALGUERO DO, PHILIPPE K 564.00 UNSPECIFIED CONSTIPATION 07/31/2011 ASHELY 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, BOY J 564.00 UNSPECIFIED CONSTIPATION 07/31/2011 [facility], JACKIE R 564.00 UNSPECIFIED CONSTIPATION 07/31/2011 SALGUERO DO, PHILIPPE K 564.00 UNSPECIFIED CONSTIPATION 07/31/2011 SALGUERO DO, PHILIPPE K 564.00 UNSPECIFIED CONSTIPATION 07/31/2011 CHRIS WINTER APRN 564.00 UNSPECIFIED CONSTIPATION 07/31/2011 SALGUERO DO, PHILIPPE K 564.00 UNSPECIFIED CONSTIPATION 07/31/2011 BOY LUND APRN 564.00 UNSPECIFIED CONSTIPATION 07/31/2011 SALGUERO DO, PHILIPPE K 564.00 UNSPECIFIED CONSTIPATION 08/20/2011 616.10 Vaginitis [...] NOEMY OLVERA, PHILIPPE K 724.2 LUMBAGO 08/20/2011 SALGUERO DO, PHILIPPE K 783.1 ABNORMAL WEIGHT GAIN 08/20/2011 SALGUERO DO, PHILIPPE K 616.10 Vaginitis And Vulvovaginitis Unspecified 08/20/2011 SALGUERO DO, PHILIPPE K 724.2 LUMBAGO 08/20/2011 SALGUERO DO, PHILIPPE K 783.1 ABNORMAL WEIGHT GAIN 08/20/2011 SALGUERO DO, PHILIPPE K 616.10 Vaginitis And Vulvovaginitis Unspecified 08/20/2011 NOEMY OLVERA, PHILIPPE K 724.2 LUMBAGO 08/20/2011 SALGUERO DO, [...] K 783.1 ABNORMAL WEIGHT GAIN 08/20/2011 SALGUERO DO PHILIPPE K 616.10 Vaginitis And Vulvovaginitis Unspecified 08/20/2011 SALGUERO DO, PHILIPPE K 724.2 LUMBAGO 08/20/2011 SALGUERO DO, PHILIPPE K 783.1 ABNORMAL WEIGHT GAIN 08/20/2011 SALGUERO DO [...] DDSDEEDEE J 783.1 ABNORMAL WEIGHT GAIN 08/20/2011 MAEVE NARAYANAN PA-C 616.10 Vaginitis And Vulvovaginitis Unspecified 08/20/2011 MAEVE NARAYANAN PA-C 724.2 LUMBAGO 08/20/2011 MAEVE NARAYANAN PA-C 783.1 ABNORMAL WEIGHT GAIN 08/20/2011 SALGUERO DO, PHILIPPE K 616.10 Vaginitis And Vulvovaginitis Unspecified 08/20/2011 NOEMY OLVERA, PHILIPPE K 724.2 LUMBAGO 08/20/2011 NOEMY OLVERA PHILIPPE K 783.1 ABNORMAL WEIGHT GAIN 08/20/2011 WHITE DDS, DEEDEE J 616.10 Vaginitis And Vulvovaginitis Unspecified 08/20/2011 WHITE DDS, DEEDEE J 724.2 LUMBAGO 08/20/2011 WHITE DDSSARABJITON J 783.1 ABNORMAL WEIGHT GAIN 08/20/2011 ASHELY SPANGLERNJUAREZA J 616.10 Vaginitis And Vulvovaginitis Unspecified 08/20/2011 ASHELY 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JUAREZA J 724.2 LUMBAGO 08/20/2011 JUAREZ LUND APRNA J 783.1 ABNORMAL WEIGHT GAIN 08/20/2011 NOEMY OLVERA PHILIPPE K 616.10 Vaginitis And Vulvovaginitis Unspecified 08/20/2011 NOEMY OLVERA PHILIPPE K 724.2 LUMBAGO 08/20/2011 NOEMY OLVERA PHILIPPE K 783.1 ABNORMAL WEIGHT GAIN 08/20/2011 NOEMY OLVERA PHILIPPE K 616.10 Vaginitis And Vulvovaginitis Unspecified 08/20/2011 NOEMY OLVERA, PHILIPPE K 724.2 LUMBAGO 08/20/2011 NOEMY OLVERA, PHILIPPE K 783.1 ABNORMAL WEIGHT GAIN 08/20/2011 ASHELY SPANGLERNJUAREZA J 616.10 Vaginitis And Vulvovaginitis Unspecified 08/20/2011 JUAREZ LUND APRNA J 724.2 LUMBAGO 08/20/2011 ASHELY VASQUES BOY [...] K 783.1 ABNORMAL WEIGHT GAIN 08/20/2011 ASHELY 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, BOY J 616.10 Vaginitis And Vulvovaginitis Unspecified 08/20/2011 ASHELY 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, BOY J 724.2 LUMBAGO 08/20/2011 ASHELY 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, BOY J 783.1 ABNORMAL WEIGHT GAIN 08/20/2011 ASHELY 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, BOY J 616.10 Vaginitis And Vulvovaginitis Unspecified 08/20/2011 ASHELY 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, BOY J 724.2 LUMBAGO 08/20/2011 ASHELY 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, BOY J 783.1 ABNORMAL WEIGHT GAIN 08/20/2011 ASHELY 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, BOY J 616.10 Vaginitis And Vulvovaginitis Unspecified 08/20/2011 ASHELY 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, BOY J 724.2 LUMBAGO 08/20/2011 ASHELY 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, BOY J 783.1 ABNORMAL WEIGHT GAIN 08/20/2011 ASHELY 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, BOY J 616.10 Vaginitis And Vulvovaginitis Unspecified 08/20/2011 ASHELY 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, BOY J 724.2 LUMBAGO 08/20/2011 ASHELY 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, BOY J 783.1 ABNORMAL WEIGHT GAIN 08/20/2011 NOEMY OLVERA PHILIPPE K 616.10 Vaginitis And Vulvovaginitis Unspecified 08/20/2011 SALGUERO DO, PHILIPPE K 724.2 LUMBAGO 08/20/2011 SALGUERO DO, PHILIPPE K 783.1 ABNORMAL WEIGHT GAIN 08/20/2011 SALGUERO DO, PHILIPPE K 616.10 Vaginitis And Vulvovaginitis Unspecified 08/20/2011 SALGUERO DO, PHILIPPE K 724.2 LUMBAGO 08/20/2011 SALGUERO , PHILIPPE K 783.1 ABNORMAL WEIGHT GAIN 08/20/2011 ASHELY 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, BOY J 616.10 Vaginitis And Vulvovaginitis Unspecified 08/20/2011 ASHELY VASQUES BOY J 724.2 LUMBAGO 08/20/2011 ASHELY VASQUES, BOY J 783.1 ABNORMAL WEIGHT GAIN 08/20/2011 BECKY LUND APRNINDA J 616.10 Vaginitis And Vulvovaginitis Unspecified 08/20/2011 ASHELY VASQUES BOY J 724.2 LUMBAGO 08/20/2011 ASHELY VASQUES BOY J 783.1 ABNORMAL WEIGHT GAIN 08/20/2011 JUAREZ LUND APRNA J 616.10 Vaginitis And Vulvovaginitis Unspecified 08/20/2011 ASHELY VASQUES BOY J 724.2 LUMBAGO 08/20/2011 ASHELY VASQUES BOY J 783.1 ABNORMAL WEIGHT GAIN 08/20/2011 SALGUERO DO PHILIPPE K 616.10 Vaginitis And Vulvovaginitis Unspecified 08/20/2011 SALGUERO DO, PHILIPPE K 724.2 LUMBAGO 08/20/2011 NOEMY OLVERA PHILIPPE K 783.1 ABNORMAL WEIGHT GAIN 08/20/2011 JUAREZ LUND APRNA J 616.10 Vaginitis And Vulvovaginitis Unspecified 08/20/2011 BECKY LUND APRNINDA J 724.2 LUMBAGO 08/20/2011 BECKY LUND APRNINDA J 783.1 ABNORMAL WEIGHT GAIN 08/20/2011 [facility], JACKIE R 616.10 Vaginitis And Vulvovaginitis Unspecified 08/20/2011 [facility], JACKIE R 724.2 LUMBAGO 08/20/2011 [facility], JACKIE R 783.1 ABNORMAL WEIGHT GAIN 08/20/2011 SALGUERO DO, PHILIPPE K 616.10 Vaginitis And Vulvovaginitis Unspecified 08/20/2011 SALGUERO DO, PHILIPPE K 724.2 LUMBAGO 08/20/2011 SALGUERO DO, PHILIPPE K 783.1 ABNORMAL WEIGHT GAIN 08/20/2011 SALGUERO DO, PHILIPPE K 616.10 Vaginitis And Vulvovaginitis Unspecified 08/20/2011 SALGUERO DO, PHILIPPE K 724.2 LUMBAGO 08/20/2011 SALGUERO DO, PHILIPPE K 783.1 ABNORMAL WEIGHT GAIN 08/20/2011 MOY 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, CHRIS A 616.10 Vaginitis And Vulvovaginitis Unspecified 08/20/2011 MOY CHRIS VASQUES A 724.2 LUMBAGO 08/20/2011 MOY CHRIS VASQUES A 783.1 ABNORMAL WEIGHT GAIN 08/20/2011 PHILIPPE SALGUERO DO K 616.10 Vaginitis And Vulvovaginitis Unspecified 08/20/2011 TANISHA SALGUERO DOA K 724.2 LUMBAGO 08/20/2011 TANISHA SALGUERO DOA K 783.1 ABNORMAL WEIGHT GAIN 08/20/2011 ASHELY JUAREZ VASQUESA J 616.10 Vaginitis And Vulvovaginitis Unspecified 08/20/2011 BECKY LUND APRNINDA J 724.2 LUMBAGO 08/20/2011 JUAREZ LUND APRNA J 783.1 ABNORMAL WEIGHT GAIN 08/20/2011 TANISHA SALGUERO DOA K 616.10 Vaginitis And Vulvovaginitis Unspecified 08/20/2011 PHILIPPE SALGUERO DO K 724.2 LUMBAGO 08/20/2011 TANISHA SALGUERO DOA [...] 10/09/2011 782.3 EDEMA 10/09/2011 782.62 Flushing 10/09/2011 PHILIPPE SALGUERO DO K 719.45 Pain In Joint Involving Pelvic Region And Thigh 10/09/2011 PHILIPPE SALGUERO DO K 729.5 Pain In Limb 10/09/2011 SALGUERO [...] Pelvic Region And Thigh 10/09/2011 SALGUERO DO, PHILIPEP K 729.5 Pain In Limb 10/09/2011 SALGUERO [...] MAEVE NARAYANAN PA-C 782.62 Flushing 10/09/2011 SALGUERO DO, PHILIPPE K [...] DDS, DEEDEE J 782.62 Flushing 10/09/2011 ASHELY JUAREZ VASQUESA J 719.45 Pain In Joint Involving Pelvic Region And Thigh 10/09/2011 JUAREZ LUND APRNA J 729.5 Pain In Limb 10/09/2011 JUAREZ LUND APRNA J 782.3 EDEMA 10/09/2011 ASHELY JUAREZ VASQUESA J 782.62 Flushing 10/09/2011 SALGUERO DO, PHILIPPE [...] DO, PHILIPPE K 782.62 Flushing 10/09/2011 ASHELY 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 BOY J 719.45 Pain In Joint Involving Pelvic Region And Thigh 10/09/2011 JUAREZ LUND APRNA J 729.5 Pain In Limb 10/09/2011 ASHELY 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 BOY J 782.3 EDEMA 10/09/2011 ASHELY 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 BOY J 782.62 Flushing 10/09/2011 WHITE DDS, [...] APRN J 729.5 Pain In Limb 10/09/2011 JUAREZ LUND APRNA J 782.3 EDEMA 10/09/2011 ASHELY CAPRICE, BOY J 782.62 Flushing 10/09/2011 JUAREZ LUND APRNA J 719.45 Pain In Joint Involving Pelvic Region And Thigh 10/09/2011 JUAREZ LUND APRNA J 729.5 Pain In Limb 10/09/2011 ASHELY VASQUES BOY J 782.3 EDEMA 10/09/2011 ASHELY CAPRICE BOY J 782.62 Flushing 10/09/2011 ASHELY CAPRICE BOY J 719.45 Pain In Joint Involving Pelvic Region And Thigh 10/09/2011 ASHELY 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, BOY J 729.5 Pain In Limb 10/09/2011 ASHELY 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, BOY J 782.3 EDEMA 10/09/2011 ASHELY 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, BOY J 782.62 Flushing 10/09/2011 ASHELY VASQUES BOY J 719.45 Pain In Joint Involving Pelvic Region And Thigh 10/09/2011 ASHELY VASQUES BOY J 729.5 Pain In Limb 10/09/2011 BOY LUND APRN J 782.3 EDEMA 10/09/2011 ASHELY CAPRICE, BOY J 782.62 Flushing 10/09/2011 SALGUERO DO, PHILIPPE [...] PHILIPPE K 782.3 EDEMA 10/09/2011 SALGUERO DO, PIHLIPPE K 782.62 Flushing 10/09/2011 BOY LUND APRN J 719.45 Pain In Joint Involving Pelvic Region And Thigh 10/09/2011 BOY LUND APRN J 729.5 Pain In Limb 10/09/2011 BOY LUND APRN J 782.3 EDEMA 10/09/2011 BOY LUND APRN J 782.62 Flushing 10/09/2011 JUAREZ LUND APRNA J 719.45 Pain In Joint Involving Pelvic Region And Thigh 10/09/2011 BOY LUND APRN J 729.5 Pain In Limb 10/09/2011 BOY LUND APRN J 782.3 EDEMA 10/09/2011 BOY LUND APRN J 782.62 Flushing 10/09/2011 BOY LUND APRN J 719.45 Pain In Joint Involving Pelvic Region And Thigh 10/09/2011 BOY LUND APRN J 729.5 Pain In Limb 10/09/2011 ASHELY VASQUES BOY J 782.3 EDEMA 10/09/2011 ASHELY CAPRICE BOY J 782.62 Flushing 10/09/2011 SALGUERO DO, PHILIPPE [...] ASHELY BOY VASQUES J 782.62 Flushing 10/09/2011 [facility], JACKIE [...] Involving Pelvic Region And Thigh 10/09/2011 MOY 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, CHRIS A 729.5 Pain In Limb 10/09/2011 MOY 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, CHRIS A 782.3 EDEMA 10/09/2011 MOY 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, CHRIS A 782.62 Flushing 10/09/2011 SALGUERO DO, [...] DDS, DEEDEE J 704.8 Folliculitis 01/15/2012 ASHELY 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, BOY J 704.8 Folliculitis 01/15/2012 SALGUERO DO, PHILIPPE K 704.8 Folliculitis 01/15/2012 SALGUERO DO, PHILIPPE K 704.8 Folliculitis 01/15/2012 ASHELY 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, BOY J 704.8 Folliculitis 01/15/2012 WHITE DDS, DEEDEE J 704.8 Folliculitis 01/15/2012 WHITE DDS, DEEDEE J 704.8 Folliculitis 01/15/2012 SALGUERO DO, PHILIPPE K 704.8 Folliculitis 01/15/2012 ASHELY 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, BOY J 704.8 Folliculitis 01/15/2012 ASHELY 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, BOY J 704.8 Folliculitis 01/15/2012 ASHELY 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, BOY J 704.8 Folliculitis 01/15/2012 ASHELY 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, BOY J 704.8 Folliculitis 01/15/2012 SALGUERO DO, PHILIPPE K 704.8 Folliculitis 01/15/2012 SALGUERO DO, PHILIPPE K 704.8 Folliculitis 01/15/2012 ASHELY 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, BOY J 704.8 Folliculitis 01/15/2012 ASHELY 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, BOY J 704.8 Folliculitis 01/15/2012 ASHELY 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, BOY J 704.8 Folliculitis 01/15/2012 SALGUERO DO, PHILIPPE K 704.8 Folliculitis 01/15/2012 ASHELY 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, BOY J 704.8 Folliculitis 01/15/2012 JACKIE PACHECO 704.8 Folliculitis 01/15/2012 SALGUERO DO, PHILIPPE K 704.8 Folliculitis 01/15/2012 SALGUERO DO, PHILIPPE K 704.8 Folliculitis 01/15/2012 CHRIS WINTER APRN 704.8 Folliculitis 01/15/2012 PHILIPPE SALGUERO DO K 704.8 Folliculitis 01/15/2012 BOY LUND APRN 704.8 Folliculitis 01/15/2012 PHILIPPE SALGUERO DO [...] DO K 728.87 Muscle Weakness (generalized) 02/04/2012 TANISHA [...] DO K 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 02/04/2012 NOEMY OLVERA PHILIPPE K 709.9 skin lesion [Sx] 02/04/2012 TANISHA SALGUERO DOA K 728.85 SPASM OF MUSCLE 02/04/2012 TANISHA ASLGUERO DOA K 728.87 Muscle Weakness (generalized) 02/04/2012 [...] 02/04/2012 MAEVE NARAYANAN PA-C 786.07 Wheezing 02/04/2012 SALGUERO DO PHILIPPE K [...] NOEMY OLVERA PHILIPPE K 786.07 Wheezing 02/04/2012 WHITE DDSDEEDEE J 276.8 HYPOPOTASSEMIA 02/04/2012 WHITE DDSDEEDEE J 311 DEPRESSIVE DISORDER NOT ELSEWHERE CLASSIFIED 02/04/2012 WHITE IVONS, DEEDEE J 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 02/04/2012 WHITE IVONSDEEDEE J 709.9 SKIN LESION [SX] 02/04/2012 WHITE [...] BOY LUND APRN J 786.07 Wheezing 02/04/2012 TANISHA SALGUERO DOA [...] OLVERA PHILIPPE K 786.07 Wheezing 02/04/2012 NOEMY OLVERATANISHAA K 276.8 HYPOPOTASSEMIA 02/04/2012 NOEMY OLVERA PHILIPPE K 311 DEPRESSIVE DISORDER NOT ELSEWHERE CLASSIFIED 02/04/2012 NOEMY OLVERA PHILIPPE K 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 02/04/2012 NOEMY OLVERATANISHAA K 709.9 SKIN LESION [SX] 02/04/2012 NOEMY OLVERA PHILIPPE K 728.85 SPASM OF MUSCLE 02/04/2012 NOEMY OLVERA PHILIPPE K 728.87 Muscle Weakness (generalized) 02/04/2012 NOEMY OLVERA PHILIPPE K 786.07 Wheezing 02/04/2012 JUAREZ LUND APRNA J 276.8 HYPOPOTASSEMIA 02/04/2012 JUAREZ LUND APRNA Marine 311 DEPRESSIVE DISORDER NOT ELSEWHERE CLASSIFIED 02/04/2012 JUAREZ LUND APRNA J 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 02/04/2012 BECKY LUND APRNINDA J 709.9 SKIN LESION [SX] 02/04/2012 BECKY LUND APRNINDA J 728.85 SPASM OF MUSCLE 02/04/2012 JUAREZ LUND APRNA J 728.87 Muscle Weakness (generalized) 02/04/2012 JUAREZ LUND APRNA [place] 786.07 Wheezing 02/04/2012 WHITE DDS, DEEDEE J 276.8 HYPOPOTASSEMIA 02/04/2012 HAN DDSSARABJITON J 311 DEPRESSIVE DISORDER NOT ELSEWHERE CLASSIFIED 02/04/2012 WHITE DDS, DEEDEE J 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 02/04/2012 WHITE DDS, DEEDEE J 709.9 SKIN LESION [SX] 02/04/2012 WHITE DDS, DEEDEE J 728.85 SPASM OF MUSCLE 02/04/2012 HAN DDS, DEEDEE J 728.87 Muscle Weakness (generalized) 02/04/2012 HAN DDS, DEEDEE J 786.07 Wheezing 02/04/2012 WHITE [...] BOY LUND APRN J 276.8 HYPOPOTASSEMIA 02/04/2012 JUAREZ LUND APRNA J 311 DEPRESSIVE DISORDER NOT ELSEWHERE CLASSIFIED 02/04/2012 JUAREZ LUND APRNA J 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 02/04/2012 JUAREZ LUND APRNA J 709.9 SKIN LESION [SX] 02/04/2012 JUAREZ LUND APRNA J 728.85 SPASM OF MUSCLE 02/04/2012 JUAREZ LUND APRNA J 728.87 Muscle Weakness (generalized) 02/04/2012 JUAREZ LUND APRNA J 786.07 Wheezing 02/04/2012 JUAREZ LUND APRNA J 276.8 HYPOPOTASSEMIA 02/04/2012 BOY LUND APRN [...] DO, PHILIPPE K 786.07 Wheezing 02/04/2012 SALGUERO DO PHILIPPE K [...] 311 DEPRESSIVE DISORDER NOT ELSEWHERE CLASSIFIED 02/04/2012 JUAERZ LUND APRNA J 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 02/04/2012 JUAREZ LUND APRNA J 709.9 SKIN LESION [SX] 02/04/2012 JUAREZ LUND APRNA J 728.85 SPASM OF MUSCLE 02/04/2012 JUAREZ LUND APRNA J 728.87 Muscle Weakness (generalized) 02/04/2012 BOY LUND APRN 786.07 Wheezing 02/04/2012 BOY LUND APRN 276.8 HYPOPOTASSEMIA 02/04/2012 JUAREZ LUND APRNA [employer] 311 DEPRESSIVE DISORDER NOT ELSEWHERE CLASSIFIED 02/04/2012 JUAREZ LUND APRNA [employer] 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 02/04/2012 JUAREZ LUND APRNA [employer] 709.9 SKIN LESION [SX] 02/04/2012 JUAREZ LUND APRNA J 728.85 SPASM OF MUSCLE 02/04/2012 JUAREZ LUND APRNA J 728.87 Muscle Weakness (generalized) 02/04/2012 JUAREZ LUND APRNA [employer] 786.07 Wheezing 02/04/2012 JUAREZ LUND APRNA J 276.8 HYPOPOTASSEMIA 02/04/2012 JUAREZ LUND APRNA [employer] 311 DEPRESSIVE DISORDER NOT ELSEWHERE CLASSIFIED 02/04/2012 JUAREZ LUND APRNA [employer] 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 02/04/2012 JUAREZ LUND APRNA J 709.9 SKIN LESION [SX] 02/04/2012 ASHELY VASQUES BOY J 728.85 SPASM OF MUSCLE 02/04/2012 BECKY LUND APRNINDA J 728.87 Muscle Weakness (generalized) 02/04/2012 JUAREZ LUND APRNA J 786.07 Wheezing 02/04/2012 PHILIPPE SALGUERO DO [...] DO, PHILIPPE K 786.07 Wheezing 02/04/2012 BOY ULND APRN J 276.8 HYPOPOTASSEMIA 02/04/2012 BOY LUND [...] MAYBARON, JACKIE R 276.8 HYPOPOTASSEMIA 02/04/2012 IVET MAYCS, JACKIE R 311 DEPRESSIVE DISORDER NOT ELSEWHERE CLASSIFIED 02/04/2012 IVET MAYBARON, JACKIE R 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 02/04/2012 IVET MAYBARON JACKIE R 709.9 SKIN LESION [SX] 02/04/2012 IVET MAYBARON, JACKIE R 728.85 SPASM OF MUSCLE 02/04/2012 IVET MAYBARON, JACKIE R 728.87 Muscle Weakness (generalized) 02/04/2012 IVET MAYBARON, JACKIE R 786.07 Wheezing 02/04/2012 SALGUERO DO PHILIPPE K [...] DO, PHILIPPE K 786.07 Wheezing 02/04/2012 SALGUERO DO PHILIPPE K 276.8 HYPOPOTASSEMIA 02/04/2012 SALGUERO DO, PHILIPPE K 311 DEPRESSIVE DISORDER NOT ELSEWHERE CLASSIFIED 02/04/2012 SALGUERO TANISHA OLVERAA K 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 02/04/2012 SALGUERO TANISHA OLVERAA K 709.9 SKIN LESION [SX] 02/04/2012 SALGUERO TANISHA OLVERAA K 728.85 SPASM OF MUSCLE 02/04/2012 SALGUERO DO PHILIPPE K 728.87 Muscle Weakness (generalized) 02/04/2012 TANISHA SALGUERO DOA K 786.07 Wheezing 02/04/2012 MOYEVELIN DELGADO APRNIDI A 276.8 HYPOPOTASSEMIA 02/04/2012 MOYCHRIS DELGDAO APRN A 311 DEPRESSIVE DISORDER NOT ELSEWHERE CLASSIFIED 02/04/2012 CHRIS WINTER APRN A 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 02/04/2012 CHRIS WINTER APRN A 709.9 SKIN LESION [SX] 02/04/2012 EVELIN WINTER APRNIDI A 728.85 SPASM OF MUSCLE 02/04/2012 CHRIS WINTER APRN A 728.87 Muscle Weakness (generalized) 02/04/2012 EVELIN WINTER APRNIDI A 786.07 Wheezing 02/04/2012 SALGUERO TANISAH OLVERAA K 276.8 HYPOPOTASSEMIA 02/04/2012 PHILIPPE SALGUERO DO [...] 02/04/2012 SALGUERO DO, PHILIPPE K 786.07 Wheezing 02/24/2012 496 COPD [...] DO, PHILIPPE K 496 COPD 02/24/2012 ASHELY 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, BOY J 496 COPD 02/24/2012 WHITE DDS, DEEDEE J 496 COPD 02/24/2012 WHITE DDS, DEEDEE J 496 COPD 02/24/2012 SALGUERO DO, PHILIPPE K 496 COPD 02/24/2012 ASHELY 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, BOY J 496 COPD 02/24/2012 ASHELY 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, BOY J 496 COPD 02/24/2012 ASHELY 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, BOY J 496 COPD 02/24/2012 ASHELY 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, BOY J 496 COPD 02/24/2012 SALGUERO DO, PHILIPPE K 496 COPD 02/24/2012 SALGUERO DO, PHILIPPE K 496 COPD 02/24/2012 ASHELY 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, BOY J 496 COPD 02/24/2012 ASHELY 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, BOY J 496 COPD 02/24/2012 ASHELY 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, BOY J 496 COPD 02/24/2012 SALGUERO DO, PHILIPPE K 496 COPD 02/24/2012 ASHELY 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, BOY J 496 COPD 02/24/2012 [facility], JACKIE R 496 COPD 02/24/2012 SALGUERO DO, PHILIPPE K 496 COPD 02/24/2012 SALGUERO DO, PHILIPPE K 496 COPD 02/24/2012 CHRIS WINTER APRN 496 COPD 02/24/2012 SALGUERO DO, PHILIPPE K 496 COPD 02/24/2012 ASHELY 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, BOY J 496 COPD 02/24/2012 SALGUERO DO, PHILIPPE K 496 COPD 03/08/2012 799.81 DECREASED LIBIDO 03/08/2012 MIRI JACOBSON, LOBO Curiel 799.81 DECREASED LIBIDO 03/08/2012 799.81 DECREASED LIBIDO [...] DDS, DEEDEE J 799.81 DECREASED LIBIDO 03/08/2012 ASHEYL 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, BOY J 799.81 DECREASED LIBIDO 03/08/2012 SALGUERO DO, PHILIPPE K 799.81 DECREASED LIBIDO 03/08/2012 SALGUERO DO, PHILIPPE K 799.81 DECREASED LIBIDO 03/08/2012 ASHELY 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, BOY J 799.81 DECREASED LIBIDO 03/08/2012 WHITE DDS, DEEDEE J 799.81 DECREASED LIBIDO 03/08/2012 WHITE DDS, DEEDEE J 799.81 DECREASED LIBIDO 03/08/2012 SALGUERO DO, PHILIPPE K 799.81 DECREASED LIBIDO 03/08/2012 ASHELY 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, BOY J 799.81 DECREASED LIBIDO 03/08/2012 ASHELY 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, BOY J 799.81 DECREASED LIBIDO 03/08/2012 ASHELY 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, BOY J 799.81 DECREASED LIBIDO 03/08/2012 ASHELY 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, BOY J 799.81 DECREASED LIBIDO 03/08/2012 SALGUERO DO, PHILIPPE K 799.81 DECREASED LIBIDO 03/08/2012 SALGUERO DO, PHILIPPE K 799.81 DECREASED LIBIDO 03/08/2012 ASHELY 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, BOY J 799.81 DECREASED LIBIDO 03/08/2012 ASHELY 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, BOY J 799.81 DECREASED LIBIDO 03/08/2012 ASHELY 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, BOY J 799.81 DECREASED LIBIDO 03/08/2012 SALGUERO DO, PHILIPPE K 799.81 DECREASED LIBIDO 03/08/2012 ASHELY 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, BOY J 799.81 DECREASED LIBIDO 03/08/[address] [facility], JACKIE Eastman 799.81 DECREASED LIBIDO 03/08/2012 SALGUERO DO, PHILIPPE K 799.81 DECREASED LIBIDO 03/08/2012 SALGUERO DO, PHILIPPE K 799.81 DECREASED LIBIDO 03/08/2012 CHRIS WINTER APRN 799.81 DECREASED LIBIDO 03/08/2012 SALGUERO DO, PHILIPPE K 799.81 DECREASED LIBIDO 03/08/2012 ASHELY 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, BOY J 799.81 DECREASED LIBIDO 03/08/2012 SALGUERO [...] PHILIPPE K 788.30 URINARY INCONTINENCE UNSPECIFIED 04/29/2012 HAN DEL VALLES, DEEDEE J 782.0 DISTURBANCE OF SKIN SENSATION [...] 782.0 DISTURBANCE OF SKIN SENSATION 04/29/2012 ASHELY 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, BOY J 788.30 URINARY INCONTINENCE UNSPECIFIED 04/29/2012 [...] K 788.30 URINARY INCONTINENCE UNSPECIFIED 04/29/2012 ASHELY 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, BOY J 782.0 DISTURBANCE OF SKIN SENSATION 04/29/2012 ASHELY SPANGLERN, BOY J 788.30 URINARY INCONTINENCE UNSPECIFIED 04/29/2012 ASHELY SPANGLERN, BOY J 782.0 DISTURBANCE OF SKIN SENSATION 04/29/2012 ASHELY 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, BOY J 788.30 URINARY INCONTINENCE UNSPECIFIED 04/29/2012 ASHELY 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, BOY J 782.0 DISTURBANCE OF SKIN SENSATION 04/29/2012 ASHELY 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, BOY J 788.30 URINARY INCONTINENCE UNSPECIFIED 04/29/2012 ASHELY 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, BOY J 782.0 DISTURBANCE OF SKIN SENSATION 04/29/2012 ASHELY 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, BOY J 788.30 URINARY INCONTINENCE UNSPECIFIED 04/29/2012 SALGUERO DO, PHILIPPE K 782.0 DISTURBANCE OF SKIN SENSATION 04/29/2012 SALGUERO DO, PHILIPPE K 788.30 URINARY INCONTINENCE UNSPECIFIED 04/29/2012 SALGUERO DO, PHILIPPE K 782.0 DISTURBANCE OF SKIN SENSATION 04/29/2012 SALGUERO DO, PHILIPPE K 788.30 URINARY INCONTINENCE UNSPECIFIED 04/29/2012 ASHELY 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, BOY J 782.0 DISTURBANCE OF SKIN SENSATION 04/29/2012 ASHELY VASQUES, BOY J 788.30 URINARY INCONTINENCE UNSPECIFIED 04/29/2012 ASHELY VASQUES, BOY J 782.0 DISTURBANCE OF SKIN SENSATION 04/29/2012 ASHELY VASQUES, BOY J 788.30 URINARY INCONTINENCE UNSPECIFIED 04/29/2012 ASHELY 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, BOY J 782.0 DISTURBANCE OF SKIN SENSATION 04/29/2012 ASHELY VASQUES, BOY J 788.30 URINARY INCONTINENCE UNSPECIFIED 04/29/2012 SALGUERO DO, PHILIPPE K 782.0 DISTURBANCE OF SKIN SENSATION 04/29/2012 SALGUERO DO, PHILIPPE K 788.30 URINARY INCONTINENCE UNSPECIFIED 04/29/2012 ASHELY VASQUES, BOY J 782.0 DISTURBANCE OF SKIN SENSATION 04/29/2012 ASHELY VASQUES, BOY J 788.30 URINARY INCONTINENCE UNSPECIFIED 04/29/2012 [facility], JACKIE R 782.0 DISTURBANCE OF SKIN SENSATION 04/29/2012 [facility], JACKIE R 788.30 URINARY INCONTINENCE UNSPECIFIED 04/29/2012 SALGUERO DO, PHILIPPE K 782.0 DISTURBANCE OF SKIN SENSATION 04/29/2012 SALGUERO DO, PHILIPPE K 788.30 URINARY INCONTINENCE UNSPECIFIED 04/29/2012 SALGUERO DO, PHILIPPE K 782.0 DISTURBANCE OF SKIN SENSATION 04/29/2012 SALGUERO DO, PHILIPPE K 788.30 URINARY INCONTINENCE UNSPECIFIED 04/29/2012 MOY 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, CHRIS A 782.0 DISTURBANCE OF SKIN SENSATION 04/29/2012 MOY 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, CHRIS A 788.30 URINARY INCONTINENCE UNSPECIFIED 04/29/2012 SALGUERO DOTANISHAA K 782.0 DISTURBANCE OF SKIN SENSATION 04/29/2012 SALGUERO DO, PHILIPPE K 788.30 URINARY INCONTINENCE UNSPECIFIED 04/29/2012 ASHELY WATER PURIFICATION CHEMIST, BOY J 782.0 DISTURBANCE OF SKIN SENSATION 04/29/2012 ASHELY WATER PURIFICATION CHEMIST, BOY J 788.30 URINARY INCONTINENCE UNSPECIFIED 04/29/2012 SALGUERO DO, PHILIPPE K 782.0 DISTURBANCE OF SKIN SENSATION 04/29/2012 SALGUERO DO, PHILIPPE K 788.30 URINARY INCONTINENCE UNSPECIFIED 05/27/2012 TANISHA SALGUERO DOA Hanna 719.47 PAIN [...] ANKLE AND FOOT 05/27/2012 TANISHA SALGUERO DOA Hnana 719.47 PAIN IN JOINT INVOLVING ANKLE AND [...] ANKLE AND FOOT 05/27/2012 BOY LUND APRN J 719.47 PAIN IN JOINT INVOLVING ANKLE AND FOOT 05/27/2012 JUAREZ LUND APRNA J 719.47 PAIN IN JOINT INVOLVING ANKLE AND FOOT 05/27/2012 PHILIPPE SALGUERO DO 719.47 PAIN IN JOINT INVOLVING ANKLE AND FOOT 05/27/2012 PHILIPPE SALGUERO DO 719.47 PAIN IN JOINT INVOLVING ANKLE AND FOOT 05/27/2012 BOY LUND APRN J 719.47 PAIN IN JOINT INVOLVING ANKLE AND FOOT 05/27/2012 BOY LUND APRN J 719.47 PAIN IN JOINT INVOLVING ANKLE [...] K 368.8 BLURRY VISION 07/04/2012 SALGUERO DO, PHILIPEP K 719.40 ARTHRALGIA 07/04/2012 SALGUERO DO, PHILIPPE [...] J 719.40 ARTHRALGIA 07/04/2012 BOY LUND APRN 354.0 CARPAL TUNNEL SYNDROME 07/04/2012 BOY LUND APRN 368.8 BLURRY VISION 07/04/2012 BOY LUND APRN J 719.40 ARTHRALGIA 07/04/2012 SALGUERO DO, PHILIPPE K 354.0 CARPAL TUNNEL SYNDROME 07/04/2012 SALGUERO DO, PHILIPPE K 368.8 BLURRY VISION 07/04/2012 SALGUERO DO, PHILIPPE K 719.40 ARTHRALGIA 07/04/2012 SALGUERO DO, PHILIPPE K 354.0 CARPAL TUNNEL SYNDROME 07/04/2012 SALGUERO DO, PHILIPPE K 368.8 BLURRY VISION 07/04/2012 SALGUERO DO, PHILIPPE K 719.40 ARTHRALGIA 07/04/2012 BOY LUND APRN J 354.0 CARPAL TUNNEL SYNDROME 07/04/2012 ASHELY WATER PURIFICATION CHEMIST, BOY J 368.8 BLURRY VISION 07/04/2012 ASHELY WATER PURIFICATION CHEMIST, BOY J 719.40 ARTHRALGIA 07/04/2012 WHITE DDS, DEEDEE J 354.0 CARPAL TUNNEL SYNDROME 07/04/2012 WHITE DDS, DEEDEE J 368.8 BLURRY VISION 07/04/2012 WHITE DDS, DEEDEE J 719.40 ARTHRALGIA 07/04/2012 WHITE DDS, DEEDEE J 354.0 CARPAL TUNNEL SYNDROME 07/04/2012 WHITE DDS, DEEDEE J 368.8 BLURRY VISION 07/04/2012 WHITE DDS, DEEDEE J 719.40 ARTHRALGIA 07/04/2012 SALGUERO DO PHILIPPE K 354.0 CARPAL TUNNEL SYNDROME 07/04/2012 SALGUERO DO PHILIPPE K 368.8 BLURRY VISION 07/04/2012 SALGUERO DO, PHILIPPE K 719.40 ARTHRALGIA 07/04/2012 ASHELY WATER PURIFICATION CHEMIST, BOY J 354.0 CARPAL TUNNEL SYNDROME 07/04/2012 ASHELY VASQUES BOY J 368.8 BLURRY VISION 07/04/2012 ASHELY CAPRICE, BOY J 719.40 ARTHRALGIA 07/04/2012 ASHELY WATER PURIFICATION CHEMIST, BOY J 354.0 CARPAL TUNNEL SYNDROME 07/04/2012 ASHELY VASQUES, BOY J 368.8 BLURRY VISION 07/04/2012 ASHELY CAPRICE, BOY J 719.40 ARTHRALGIA 07/04/2012 ASHELY WATER PURIFICATION CHEMIST BOY J 354.0 CARPAL TUNNEL SYNDROME 07/04/2012 ASHELY VASQUES BOY J 368.8 BLURRY VISION 07/04/2012 AHSELY VASQUES BOY J 719.40 ARTHRALGIA 07/04/2012 ASHELY WATER PURIFICATION CHEMIST, BOY J 354.0 CARPAL TUNNEL SYNDROME 07/04/2012 ASHELY WATER PURIFICATION CHEMIST, BOY J 368.8 BLURRY VISION 07/04/2012 ASHELY WATER PURIFICATION CHEMIST, BOY J 719.40 ARTHRALGIA 07/04/2012 SALGUERO DO, PHILIPPE K 354.0 CARPAL TUNNEL SYNDROME 07/04/2012 SALGUERO DO, PHILIPPE K 368.8 BLURRY VISION 07/04/2012 SALGUERO DO PHILIPPE K 719.40 ARTHRALGIA 07/04/2012 SALGUERO DO PHILIPPE K 354.0 CARPAL TUNNEL SYNDROME 07/04/2012 SALGUERO DO, PHILIPPE K 368.8 BLURRY VISION 07/04/2012 SALGUERO DO, PHILIPPE K 719.40 ARTHRALGIA 07/04/2012 BOY LUND APRN J 354.0 CARPAL TUNNEL SYNDROME 07/04/2012 JUAREZ LUND APRNA J 368.8 BLURRY VISION 07/04/2012 ASHELY VASQUES BOY J 719.40 ARTHRALGIA 07/04/2012 JURAEZ LUND APRNA J 354.0 CARPAL TUNNEL SYNDROME 07/04/2012 JUAREZ LUND APRNA J 368.8 BLURRY VISION 07/04/2012 ASHEYL VASQUES BOY J 719.40 ARTHRALGIA 07/04/2012 JUAREZ [...] JUAREZ LUND APRNA J 719.40 ARTHRALGIA 07/04/2012 [facility], JACKIE R 354.0 CARPAL TUNNEL SYNDROME 07/04/2012 [facility], JACKIE R 368.8 BLURRY VISION 07/04/2012 [facility], JACKIE R 719.40 ARTHRALGIA 07/04/2012 SALGUERO DO, PHILIPPE K 354.0 CARPAL TUNNEL SYNDROME 07/04/2012 SALGUERO DO, PHILIPPE K 368.8 BLURRY VISION 07/04/2012 SALGUERO DO, PHILIPPE K 719.40 ARTHRALGIA 07/04/2012 SALGUERO DO, PHILIPPE K 354.0 CARPAL TUNNEL SYNDROME 07/04/2012 SALGUERO DO, PHILIPPE K 368.8 BLURRY VISION 07/04/2012 SALGUERO DO, PHILIPPE K 719.40 ARTHRALGIA 07/04/2012 MOY WATER PURIFICATION CHEMIST, CHRIS A 354.0 CARPAL TUNNEL SYNDROME 07/04/2012 MOY WATER PURIFICATION CHEMIST, CHRIS A 368.8 BLURRY VISION 07/04/2012 MOY WATER PURIFICATION CHEMIST, CHRIS A 719.40 ARTHRALGIA 07/04/2012 SALGUERO DO, PHILIPPE K 354.0 CARPAL TUNNEL SYNDROME 07/04/2012 SALGUERO DO, PHILIPPE K 368.8 BLURRY VISION 07/04/2012 SALGUERO DO, PHILIPPE K 719.40 ARTHRALGIA 07/04/2012 ASHELY WATER PURIFICATION CHEMIST, BOY J 354.0 CARPAL TUNNEL SYNDROME 07/04/2012 ASHELY WATER PURIFICATION CHEMIST, BOY J 368.8 BLURRY VISION 07/04/2012 ASHELY WATER PURIFICATION CHEMIST, BOY J 719.40 ARTHRALGIA 07/04/2012 SALGUERO DO, [...] AND ABSCESS OF UNSPECIFIED SITES 09/07/2012 ASHELY WATER PURIFICATION CHEMIST, BOY J 682.9 CELLULITIS AND ABSCESS OF UNSPECIFIED SITES 09/07/2012 SALGUERO DO, PHILIPPE K 682.9 CELLULITIS AND ABSCESS OF UNSPECIFIED SITES 09/07/2012 SALGUERO DO, PHILIPPE K 682.9 CELLULITIS AND ABSCESS OF UNSPECIFIED SITES 09/07/2012 ASHELY WATER PURIFICATION CHEMIST, BOY J 682.9 CELLULITIS AND ABSCESS OF UNSPECIFIED SITES 09/07/2012 WHITE DDS, DEEDEE J 682.9 CELLULITIS AND ABSCESS OF UNSPECIFIED SITES 09/07/2012 WHITE DDS, DEEDEE J 682.9 CELLULITIS AND ABSCESS OF UNSPECIFIED SITES 09/07/2012 SALGUERO DO, PHILIPPE K 682.9 CELLULITIS AND ABSCESS OF UNSPECIFIED SITES 09/07/2012 ASHELY WATER PURIFICATION CHEMIST, BOY J 682.9 CELLULITIS AND ABSCESS OF UNSPECIFIED SITES 09/07/2012 ASHELY WATER PURIFICATION CHEMIST, BOY J 682.9 CELLULITIS AND ABSCESS OF UNSPECIFIED SITES 09/07/2012 ASEHLY WATER PURIFICATION CHEMIST, BOY J 682.9 CELLULITIS AND ABSCESS OF UNSPECIFIED SITES 09/07/2012 ASHELY WATER PURIFICATION CHEMIST, BOY J 682.9 CELLULITIS AND ABSCESS OF UNSPECIFIED SITES 09/07/2012 SALGUERO DO, PHILIPPE K 682.9 CELLULITIS AND ABSCESS OF UNSPECIFIED SITES 09/07/2012 SALGUERO DO, PHILIPPE K 682.9 CELLULITIS AND ABSCESS OF UNSPECIFIED SITES 09/07/2012 ASHELY WATER PURIFICATION CHEMIST, BOY J 682.9 CELLULITIS AND ABSCESS OF UNSPECIFIED SITES 09/07/2012 ASHELY WATER PURIFICATION CHEMIST, BOY J 682.9 CELLULITIS AND ABSCESS OF UNSPECIFIED SITES 09/07/2012 ASHELY WATER PURIFICATION CHEMIST, BOY J 682.9 CELLULITIS AND ABSCESS OF UNSPECIFIED SITES 09/07/2012 TANISHA SALGUERO DOA K 682.9 CELLULITIS AND ABSCESS OF UNSPECIFIED SITES 09/07/2012 BOY LUND APRN 682.9 CELLULITIS AND ABSCESS OF UNSPECIFIED SITES 09/07/[address] [facility], JACKIE Eastman 682.9 CELLULITIS AND ABSCESS OF UNSPECIFIED SITES 09/07/2012 TANISHA SALGUERO DOA K 682.9 CELLULITIS AND ABSCESS OF UNSPECIFIED SITES 09/07/2012 TANISHA SALGUERO DOA K 682.9 CELLULITIS AND ABSCESS OF UNSPECIFIED SITES 09/07/2012 CHRIS WINTER APRN 682.9 CELLULITIS AND ABSCESS OF UNSPECIFIED SITES 09/07/2012 TANISHA SALGUERO DOA K 682.9 CELLULITIS AND ABSCESS OF UNSPECIFIED SITES 09/07/2012 BOY LUND APRN 682.9 CELLULITIS AND ABSCESS OF UNSPECIFIED SITES 09/07/2012 TANISHA SALGUERO DOA K 682.9 CELLULITIS AND ABSCESS OF UNSPECIFIED [...] TANISHA SALGUERO DOA K 692.71 SUNBURN 10/06/2012 TANIHSA SALGUERO DOA K 709.2 SCAR CONDITIONS AND FIBROSIS OF SKIN 10/06/2012 TANISHA SALGUERO DOA K 692.71 SUNBURN 10/06/2012 TANISHA SALGUERO DOA K 709.2 SCAR CONDITIONS AND FIBROSIS OF SKIN 10/06/2012 SALGUERO DO, PHILIPPE K 692.71 SUNBURN 10/06/2012 SALGUERO DO PHILIPPE K 709.2 SCAR CONDITIONS AND FIBROSIS OF SKIN 10/06/2012 SALGUERO DO PHILIPPE K 692.71 SUNBURN 10/06/2012 SALGUERO DO, PHILIPPE K 709.2 SCAR CONDITIONS AND FIBROSIS OF SKIN 10/06/2012 SALGUERO DO PHILIPPE K 692.71 SUNBURN 10/06/2012 SALGUERO DO PHILIPPE K 709.2 SCAR CONDITIONS AND FIBROSIS OF SKIN 10/06/2012 SALGUERO DO, PHILIPPE K 692.71 SUNBURN 10/06/2012 SALGUERO DO, PHILIPPE K 709.2 SCAR CONDITIONS AND FIBROSIS OF SKIN 10/06/2012 SALGUERO DO PHILIPPE K 692.71 SUNBURN 10/06/2012 SALGUERO DO PHILIPPE K 709.2 SCAR CONDITIONS AND FIBROSIS OF SKIN 10/06/2012 WHITE DDS, DEEDEE J 692.71 SUNBURN 10/06/2012 WHITE DDS, DEEDEE J 709.2 SCAR CONDITIONS AND FIBROSIS OF SKIN 10/06/2012 MAEVE NARAYANAN PA-C 692.71 SUNBURN 10/06/2012 MAEVE NARAYANAN PA-C M 709.2 SCAR CONDITIONS AND FIBROSIS OF SKIN 10/06/2012 SALGUERO DOTANISHAA K 692.71 SUNBURN 10/06/2012 TANISHA SALGUERO DOA K 709.2 SCAR CONDITIONS AND FIBROSIS OF SKIN 10/06/2012 WHITE DDS, DEEDEE J 692.71 SUNBURN 10/06/2012 WHITE DDS, DEEDEE J 709.2 SCAR CONDITIONS AND FIBROSIS OF SKIN 10/06/2012 ASHELY SPANGLERN, BOY J 692.71 SUNBURN 10/06/2012 ASHELY SPANGLERN, BOY J 709.2 SCAR CONDITIONS AND FIBROSIS OF SKIN 10/06/2012 SALGUERO DO PHILIPPE K 692.71 SUNBURN 10/06/2012 SALGUERO DOTANISHAA K 709.2 SCAR CONDITIONS AND FIBROSIS OF SKIN 10/06/2012 SALGUERO DO PHILIPPE K 692.71 SUNBURN 10/06/2012 SALGUERO DO PHILIPPE K 709.2 SCAR CONDITIONS AND FIBROSIS OF SKIN 10/06/2012 ASHELY SPANGLERN, BOY J 692.71 SUNBURN 10/06/2012 ASHELY VASQUES BOY J 709.2 SCAR CONDITIONS AND FIBROSIS [...] CONDITIONS AND FIBROSIS OF SKIN 10/06/2012 ASHELY WATER PURIFICATION CHEMIST, BOY J 692.71 SUNBURN 10/06/2012 ASHELY VASQUES, [...] FIBROSIS OF SKIN 10/06/2012 PHILIPPE SALGUERO DO 692.71 SUNBURN 10/06/2012 PHILIPPE SALGUERO DO 709.2 SCAR CONDITIONS AND FIBROSIS OF SKIN 10/06/2012 BOY LUND APRN 692.71 SUNBURN 10/06/2012 BOY LUND APRN 709.2 SCAR CONDITIONS AND FIBROSIS OF SKIN 10/06/2012 [facility], JACKIE R 692.71 SUNBURN 10/06/2012 [facility], JACKIE R 709.2 SCAR CONDITIONS AND FIBROSIS OF SKIN 10/06/2012 PHILIPPE SALGUERO DO K 692.71 SUNBURN 10/06/2012 PHILIPPE SALGUERO DO K 709.2 SCAR CONDITIONS AND FIBROSIS OF SKIN 10/06/2012 PHILIPPE SALGUERO DO K 692.71 SUNBURN 10/06/2012 PHILIPPE SALGUERO DO K 709.2 SCAR CONDITIONS AND FIBROSIS OF SKIN 10/06/2012 CHRIS WINTER APRN A 692.71 SUNBURN 10/06/2012 CHRIS WINTER APRN A 709.2 SCAR CONDITIONS AND FIBROSIS OF SKIN 10/06/2012 PHILIPPE SALGUERO DO K 692.71 SUNBURN 10/06/2012 PHILIPPE SALGUERO DO K 709.2 SCAR CONDITIONS AND FIBROSIS OF SKIN 10/06/2012 BOY LUND APRN 692.71 SUNBURN 10/06/2012 BOY LUND APRN 709.2 SCAR CONDITIONS AND FIBROSIS OF SKIN 10/06/2012 PHILIPPE SALGUERO DO K 692.71 SUNBURN 10/06/2012 PHILIPPE SALGUERO DO 709.2 SCAR CONDITIONS AND FIBROSIS OF SKIN [...] ABNORMAL BLEEDING FROM FEMALE GENITAL TRACT 12/08/2012 NOEMY OLVERATANISHAA K 626.9 UNSPECIFIED DISORDERS OF MENSTRUATION AND [...] FROM FEMALE GENITAL TRACT 12/08/2012 HAN DEL VALLESSARABJITON J 626.9 UNSPECIFIED DISORDERS OF MENSTRUATION AND [...] BLEEDING FROM FEMALE GENITAL TRACT 12/08/[address] [facility], JACKIE R 626.9 UNSPECIFIED DISORDERS OF MENSTRUATION [...] DEEDEE J V04.81 FLU SHOT 01/11/2013 ASHELY WATER PURIFICATION CHEMIST, BOY J V04.81 FLU SHOT 01/11/2013 SALGUERO DO, PHILIPPE K V04.81 FLU SHOT 01/11/2013 SALGUERO DO, PHILIPPE K V04.81 FLU SHOT 01/11/2013 ASHELY WATER PURIFICATION CHEMIST, BOY J V04.81 FLU SHOT 01/11/2013 WHITE DDS, DEEDEE J V04.81 FLU SHOT 01/11/2013 WHITE DDS, DEEDEE J V04.81 FLU SHOT 01/11/2013 SALGUERO DO, PHILIPPE K V04.81 FLU SHOT 01/11/2013 ASHELY WATER PURIFICATION CHEMIST, BOY J V04.81 FLU SHOT 01/11/2013 ASHELY WATER PURIFICATION CHEMIST, BOY J V04.81 FLU SHOT 01/11/2013 ASHELY WATER PURIFICATION CHEMIST, BOY J V04.81 FLU SHOT 01/11/2013 ASHELY WATER PURIFICATION CHEMIST, BOY J V04.81 FLU SHOT 01/11/2013 SALGUERO DO, PHILIPPE K V04.81 FLU SHOT 01/11/2013 SALGUERO DO, PHILIPPE K V04.81 FLU SHOT 01/11/2013 ASHELY WATER PURIFICATION CHEMIST, BOY J V04.81 FLU SHOT 01/11/2013 ASHELY WATER PURIFICATION CHEMIST, BOY J V04.81 FLU SHOT 01/11/2013 ASHELY WATER PURIFICATION CHEMIST, BOY J V04.81 FLU SHOT 01/11/2013 SALGUERO DO, PHILIPPE K V04.81 FLU SHOT 01/11/2013 ASHELY WATER PURIFICATION CHEMIST, BOY J V04.81 FLU SHOT 01/11/[address] [facility], JACKIE R V04.81 FLU SHOT 01/11/2013 SALGUERO DO, PHILIPPE K V04.81 FLU SHOT 01/11/2013 SALGUERO DO, PHILIPPE K V04.81 FLU SHOT 01/11/2013 CHRIS IWNTER APRN A V04.81 FLU SHOT 01/11/2013 SALGUERO DO, PHILIPPE K V04.81 FLU SHOT 01/11/2013 ASHELY WATER PURIFICATION CHEMIST, BOY J V04.81 FLU SHOT 01/11/2013 SALGUERO [...] WHITE DEEDEE JACOBSON 799.02 HYPOXEMIA 01/27/2013 MAEVE NRAAYANAN PA-C 799.02 HYPOXEMIA 01/27/2013 SALGUERO DO, PHILIPPE K 799.02 HYPOXEMIA 01/27/2013 WHITE DEEDEE JACOBSON 799.02 HYPOXEMIA 01/27/2013 BOY LUND APRN 799.02 HYPOXEMIA 01/27/2013 SALGUERO DO, PHILIPPE K 799.02 HYPOXEMIA 01/27/2013 SALGUERO DO, PHILIPPE K 799.02 HYPOXEMIA 01/27/2013 BYO LUND APRN 799.02 HYPOXEMIA 01/27/2013 WHITE DDS, DEEDEE J 799.02 HYPOXEMIA 01/27/2013 WHITE DDS, DEEDEE J 799.02 HYPOXEMIA 01/27/2013 SALGUERO DO, PHILIPPE K 799.02 HYPOXEMIA 01/27/2013 ASHELY WATER PURIFICATION CHEMIST, BOY J 799.02 HYPOXEMIA 01/27/2013 ASHELY WATER PURIFICATION CHEMIST, BOY J 799.02 HYPOXEMIA 01/27/2013 ASHELY WATER PURIFICATION CHEMIST, BOY J 799.02 HYPOXEMIA 01/27/2013 ASHELY WATER PURIFICATION CHEMIST, BOY J 799.02 HYPOXEMIA 01/27/2013 SALGUERO DO, PHILIPPE K 799.02 HYPOXEMIA 01/27/2013 SALGUERO DO, PHILIPPE K 799.02 HYPOXEMIA 01/27/2013 ASHELY WATER PURIFICATION CHEMIST, BOY J 799.02 HYPOXEMIA 01/27/2013 ASHELY WATER PURIFICATION CHEMIST, BOY J 799.02 HYPOXEMIA 01/27/2013 ASHELY WATER PURIFICATION CHEMIST, BOY J 799.02 HYPOXEMIA 01/27/2013 SALGUERO DO, PHILIPPE K 799.02 HYPOXEMIA 01/27/2013 ASHELY WATER PURIFICATION CHEMIST, BOY J 799.02 HYPOXEMIA 01/27/2013 [facility], JACKIE R 799.02 HYPOXEMIA 01/27/2013 SALGUERO DO, PHILIPPE K 799.02 HYPOXEMIA 01/27/2013 SALGUERO DO, PHILIPPE K 799.02 HYPOXEMIA 01/27/2013 CHRIS WINTER APRN 799.02 HYPOXEMIA 01/27/2013 SALGUERO DO, PHILIPPE K 799.02 HYPOXEMIA 01/27/2013 ASHELY WATER PURIFICATION CHEMIST, BOY J 799.02 HYPOXEMIA 01/27/2013 SALGUERO DO, PHILIPPE K 799.02 HYPOXEMIA 04/07/2013 SALGUERO DO, PHILIPPE K 780.52 INSOMNIA UNSPECIFIED 04/07/2013 SALGUERO DO, PHILIPPE K 780.52 INSOMNIA UNSPECIFIED 04/07/2013 SALGUERO DO, PHILIPPE K 780.52 INSOMNIA UNSPECIFIED 04/07/2013 SALGUERO DO, PHILIPPE K 780.52 INSOMNIA UNSPECIFIED 04/07/2013 SALGUERO DO, PHILIPPE K 780.52 INSOMNIA UNSPECIFIED 04/07/2013 WHITE DDS, DEDEEE [place] 780.52 INSOMNIA UNSPECIFIED 04/07/2013 MAEVE NARAYANAN PA-C 780.52 INSOMNIA UNSPECIFIED 04/07/2013 SALGUERO DO, PHILIPPE K 780.52 INSOMNIA UNSPECIFIED 04/07/2013 WHITE DDS, DEEDEE J 780.52 INSOMNIA UNSPECIFIED 04/07/2013 ASHELY WATER PURIFICATION CHEMIST, BOY J 780.52 INSOMNIA UNSPECIFIED 04/07/2013 SALGUERO DO, PHILIPPE K 780.52 INSOMNIA UNSPECIFIED 04/07/2013 SALGUERO DO, PHILIPPE K 780.52 INSOMNIA UNSPECIFIED 04/07/2013 ASHELY WATER PURIFICATION CHEMIST, BOY J 780.52 INSOMNIA UNSPECIFIED 04/07/2013 WHITE DDS, DEEDEE J 780.52 INSOMNIA UNSPECIFIED 04/07/2013 WHITE DDS, DEEDEE J 780.52 INSOMNIA UNSPECIFIED 04/07/2013 SALGUERO DO, PHILIPPE K 780.52 INSOMNIA UNSPECIFIED 04/07/2013 ASHELY WATER PURIFICATION CHEMIST, BOY J 780.52 INSOMNIA UNSPECIFIED 04/07/2013 ASHELY WATER PURIFICATION CHEMIST, BOY J 780.52 INSOMNIA UNSPECIFIED 04/07/2013 ASHELY WATER PURIFICATION CHEMIST, BOY J 780.52 INSOMNIA UNSPECIFIED 04/07/2013 ASHELY WATER PURIFICATION CHEMIST, BOY J 780.52 INSOMNIA UNSPECIFIED 04/07/2013 SALGUERO DO, PHILIPPE K 780.52 INSOMNIA UNSPECIFIED 04/07/2013 SALGUERO DO, PHILIPPE K 780.52 INSOMNIA UNSPECIFIED 04/07/2013 ASHELY WATER PURIFICATION CHEMIST, BOY J 780.52 INSOMNIA UNSPECIFIED 04/07/2013 ASHELY WATER PURIFICATION CHEMIST, BOY J 780.52 INSOMNIA UNSPECIFIED 04/07/2013 ASHELY WATER PURIFICATION CHEMIST, BOY J 780.52 INSOMNIA UNSPECIFIED 04/07/2013 SALGUERO DO, PHILIPPE K 780.52 INSOMNIA UNSPECIFIED 04/07/2013 ASHELY WATER PURIFICATION CHEMIST, BOY J 780.52 INSOMNIA UNSPECIFIED 04/07/2013 [facility], JACKIE R 780.52 INSOMNIA UNSPECIFIED 04/07/2013 SALGUERO DO, PHILIPPE K 780.52 INSOMNIA UNSPECIFIED 04/07/2013 SALGUERO DO, PHILIPPE K 780.52 INSOMNIA UNSPECIFIED 04/07/2013 MOY VASQUES CHRIS A 780.52 INSOMNIA UNSPECIFIED 04/07/2013 SALGUERO DO, PHILIPPE K 780.52 INSOMNIA UNSPECIFIED 04/07/2013 ASHELY WATER PURIFICATION CHEMIST, BOY J 780.52 INSOMNIA UNSPECIFIED 04/07/2013 SALGUERO DO, PHILIPPE K 780.52 INSOMNIA UNSPECIFIED 05/18/2013 BEN CASTRO, LIZZIE [place] Ot 618.01 05/18/2013 LIZZIE CONTRERAS MD Ot 788.30 05/18/2013 BEN CASTRO, LIZZIE [place] Ot V03.82 08/07/2013 SALGUERO DO, PHILIPPE K 276.8 HYPOPOTASSEMIA 08/07/2013 SALGUERO DO, PHILIPPE K 796.2 ELEVATED BLOOD PRESSURE READING WITHOUT DIAGNOSIS OF HYPERTENSION 08/07/2013 WHITE DDS, DEEDEE J 276.8 HYPOPOTASSEMIA 08/07/2013 WHITE DDS, DEEDEE J 796.2 ELEVATED BLOOD PRESSURE READING WITHOUT DIAGNOSIS OF HYPERTENSION 08/07/2013 ASHELY SPANGLERN, BOY J 276.8 HYPOPOTASSEMIA 08/07/2013 ASHELY WATER PURIFICATION CHEMIST, BOY J 796.2 ELEVATED BLOOD PRESSURE READING [...] READING WITHOUT DIAGNOSIS OF HYPERTENSION 08/07/2013 ASHELY VASQUES, BOY J 276.8 HYPOPOTASSEMIA 08/07/2013 ASHELY VASQUES, BOY J 796.2 ELEVATED BLOOD PRESSURE READING WITHOUT DIAGNOSIS OF HYPERTENSION 08/07/2013 ASHELY VASQUES BOY J 276.8 HYPOPOTASSEMIA 08/07/2013 BECKY LUND APRNINDA J 796.2 ELEVATED BLOOD PRESSURE READING WITHOUT DIAGNOSIS OF HYPERTENSION 08/07/2013 JUAREZ LUND APRNA J 276.8 HYPOPOTASSEMIA 08/07/2013 ASHELY VASQUES BOY [...] BECKY LUND APRNINDA J 276.8 HYPOPOTASSEMIA 08/07/2013 JUAREZ LUND APRNA J 796.2 ELEVATED BLOOD PRESSURE READING WITHOUT DIAGNOSIS OF HYPERTENSION 08/07/2013 [facility], JACKIE R 276.8 HYPOPOTASSEMIA 08/07/2013 [facility], JACKIE R 796.2 ELEVATED BLOOD PRESSURE [...] PRESSURE READING WITHOUT DIAGNOSIS OF HYPERTENSION 08/07/2013 NOEMY OLVERA PHILIPPE K 276.8 HYPOPOTASSEMIA 08/07/2013 TANISHA SALGUERO DOA K 796.2 ELEVATED BLOOD PRESSURE READING WITHOUT DIAGNOSIS OF HYPERTENSION 08/07/2013 BOY LUND APRN 276.8 HYPOPOTASSEMIA 08/07/2013 BOY LUND APRN J 796.2 ELEVATED BLOOD PRESSURE READING WITHOUT DIAGNOSIS OF HYPERTENSION 08/07/2013 SALGUERO DO PHILIPPE K 276.8 HYPOPOTASSEMIA 08/07/2013 TANISHA SALGUERO DOA K 796.2 ELEVATED BLOOD PRESSURE READING WITHOUT DIAGNOSIS OF HYPERTENSION 09/07/2013 BOY LUND APRN 295.70 SCHIZOAFFECTIVE DISORDER UNSPECIFIED STATE 09/07/2013 BOY LUND APRN 309.81 AN PTSD 09/07/2013 PHILIPPE SALGUERO DO K 295.70 SCHIZOAFFECTIVE DISORDER UNSPECIFIED STATE 09/07/2013 TANISHA SALGUERO DOA K 309.81 AN PTSD 09/07/2013 TANISHA SALGUERO DOA K 295.70 SCHIZOAFFECTIVE DISORDER UNSPECIFIED STATE 09/07/2013 TANISHA SALGUERO DOA K 309.81 AN PTSD 09/07/2013 BOY LUND APRN J 295.70 SCHIZOAFFECTIVE DISORDER UNSPECIFIED STATE 09/07/2013 BOY LUND APRN 309.81 AN PTSD 09/07/2013 WHITE DDS, DEEDEE J 295.70 SCHIZOAFFECTIVE DISORDER UNSPECIFIED STATE 09/07/2013 WHITE DDS, DEEDEE J 309.81 AN PTSD 09/07/2013 WHITE DDS, DEEDEE J 295.70 SCHIZOAFFECTIVE DISORDER UNSPECIFIED STATE 09/07/2013 WHITE DDS, DEEDEE J 309.81 AN PTSD 09/07/2013 TANISHA SALGUERO DOA K 295.70 SCHIZOAFFECTIVE DISORDER UNSPECIFIED STATE 09/07/2013 TANISHA SALGUERO DOA K 309.81 AN PTSD 09/07/2013 BOY LUND APRN 295.70 SCHIZOAFFECTIVE DISORDER UNSPECIFIED STATE 09/07/2013 BOY LUND APRN 309.81 AN PTSD 09/07/2013 ASHELY WATER PURIFICATION CHEMIST, BOY J 295.70 SCHIZOAFFECTIVE DISORDER UNSPECIFIED STATE 09/07/2013 ASHELY WATER PURIFICATION CHEMIST, BOY J 309.81 AN PTSD 09/07/2013 ASHELY WATER PURIFICATION CHEMIST, BOY J 295.70 SCHIZOAFFECTIVE DISORDER UNSPECIFIED STATE 09/07/2013 ASHELY WATER PURIFICATION CHEMIST, BOY J 309.81 AN PTSD 09/07/2013 ASHELY VASQUES, BOY J 295.70 SCHIZOAFFECTIVE DISORDER UNSPECIFIED STATE 09/07/2013 ASHELY VASQUES, BOY J 309.81 AN PTSD 09/07/2013 SALGUERO DO PHILIPPE K 295.70 SCHIZOAFFECTIVE DISORDER UNSPECIFIED STATE 09/07/2013 SALGUERO DO PHILIPPE K 309.81 AN PTSD 09/07/2013 SALGUERO DO PHILIPPE K 295.70 SCHIZOAFFECTIVE DISORDER UNSPECIFIED STATE 09/07/2013 NOEMY OLVERA PHILIPPE K 309.81 AN PTSD 09/07/2013 ASHELY VASQUES, BOY J 295.70 SCHIZOAFFECTIVE DISORDER UNSPECIFIED STATE 09/07/2013 ASHELY VASQUES BOY J 309.81 AN PTSD 09/07/2013 ASHELY VASQUES, BOY J 295.70 SCHIZOAFFECTIVE DISORDER UNSPECIFIED STATE 09/07/2013 ASHELY VASQUES, BOY J 309.81 AN PTSD 09/07/2013 ASHELY VASQUES, BOY J 295.70 SCHIZOAFFECTIVE DISORDER UNSPECIFIED STATE 09/07/2013 ASHELY VASQUES, BOY J 309.81 AN PTSD 09/07/2013 NOEMY OLVERA PHILIPPE K 295.70 SCHIZOAFFECTIVE DISORDER UNSPECIFIED STATE 09/07/2013 TANISHA SALGUERO DOA K 309.81 AN PTSD 09/07/2013 ASHELY WATER PURIFICATION CHEMIST, BOY J 295.70 SCHIZOAFFECTIVE DISORDER UNSPECIFIED STATE 09/07/2013 ASHELY WATER PURIFICATION CHEMIST, BOY J 309.81 AN PTSD 09/07/2013 [facility], JACKIE R 295.70 SCHIZOAFFECTIVE DISORDER UNSPECIFIED STATE 09/07/2013 [facility], JACKIE R 309.81 AN PTSD 09/07/2013 SALGUERO DO PHILIPPE K 295.70 SCHIZOAFFECTIVE DISORDER UNSPECIFIED STATE 09/07/2013 SALGUERO DO PHILIPPE K 309.81 AN PTSD 09/07/2013 SALGUERO DO PHILIPPE K 295.70 SCHIZOAFFECTIVE DISORDER UNSPECIFIED STATE 09/07/2013 SALGUERO DO PHILIPPE K 309.81 AN PTSD 09/07/2013 [facility] [employer]IF[employer] CHEMIST, CHRIS A 295.70 SCHIZOAFFECTIVE DISORDER UNSPECIFIED STATE 09/07/2013 [employer] [employer] PURIFICATION CHEMIST, CHRIS A 309.81 AN PTSD 09/07/2013 SALGUERO DO PHILIPPE K 295.70 SCHIZOAFFECTIVE DISORDER UNSPECIFIED STATE 09/07/2013 SALGUERO DO PHILIPPE K 309.81 AN PTSD 09/07/2013 JUAREZ LUND APRNA J 295.70 SCHIZOAFFECTIVE DISORDER UNSPECIFIED STATE 09/07/2013 AS[facility] W[employer] PURIFICATION CHEMISTJUAREZ CurielA J 309.81 AN PTSD 09/07/2013 SALGUERO DO [...] SALGUERO DO PHILIPPE K 530.81 GERD 09/15/2013 SALUGERO DO PHILIPPE K 788.30 URINARY INCONTINENCE UNSPECIFIED 09/15/2013 SALGUERO DO PHILIPPE K V25.9 CONTRACEPTION MANAGEMENT 09/15/2013 [employer] PURIF[employer] CHEMIST, BOY J 530.81 GERD 09/15/2013 [employer] PURIFICATION CHEMIST, BOY J 788.30 URINARY INCONTINENCE UNSPECIFIED 09/15/2013 [employer] W[employer] PURIFICATION CHEMIST BOY J V25.9 CONTRACEPTION MANAGEMENT 09/15/2013 [employer] W[employer] PURIFICATION CHEMIST, BOY J 530.81 GERD 09/15/2013 [employer] W[employer] PURIFICATION CHEMIST, BOY J 788.30 URINARY INCONTINENCE UNSPECIFIED 09/15/2013 [employer] W[employer] PURIFICATION CHEMIST BOY J V25.9 CONTRACEPTION MANAGEMENT 09/15/2013 ASHE[employer] W[employer] PURIFICATION CHEMIST, BOY J 530.81 GERD 09/15/2013 [employer] W[employer] PURIFICATION CHEMIST, BOY J 788.30 URINARY INCONTINENCE UNSPECIFIED 09/15/2013 [employer] W[employer] PURIFICATION CHEMIST BOY J V25.9 CONTRACEPTION MANAGEMENT 09/15/2013 [employer] W[employer] PURIFICATION CHEMIST, BOY J 530.81 GERD 09/15/2013 [employer] W[employer] PURIFICATION CHEMIST, BOY J 788.30 URINARY INCONTINENCE UNSPECIFIED 09/15/2013 ASHELY VASQUES BOY J V25.9 CONTRACEPTION MANAGEMENT 09/15/2013 SALGUERO DO, PHILIPPE K 530.81 GERD 09/15/2013 SALGUERO DO, PHILIPPE K 788.30 URINARY INCONTINENCE UNSPECIFIED 09/15/2013 SALGUERO DO, PHILIPPE K V25.9 CONTRACEPTION MANAGEMENT 09/15/2013 SALGUERO DO, PHILIPPE K 530.81 GERD 09/15/2013 SALGUERO DO, PHILIPPE K 788.30 URINARY INCONTINENCE UNSPECIFIED 09/15/2013 SALGUERO DO, PHILIPPE K V25.9 CONTRACEPTION MANAGEMENT 09/15/2013 [employer] W[employer] PURIFICATION CHEMIST, BOY J 530.81 GERD 09/15/2013 ASHE[employer] W[employer] PURIFICATION CHEMIST BOY J 788.30 URINARY INCONTINENCE UNSPECIFIED 09/15/2013 ASHE[employer] WATER PURIFICATION CHEMIST BOY J V25.9 CONTRACEPTION MANAGEMENT 09/15/2013 [employer] W[employer] PURIFICATION CHEMIST, BOY J 530.81 GERD 09/15/2013 [employer] W[employer] PURIFICATION CHEMIST, BOY J 788.30 URINARY INCONTINENCE UNSPECIFIED 09/15/2013 ASHE[employer] W[employer] PURIFICATION CHEMIST, BOY J V25.9 CONTRACEPTION MANAGEMENT 09/15/2013 ASHE[employer] W[employer] PURIFICATION CHEMIST BOY J 530.81 GERD 09/15/2013 ASHE[employer] W[employer] PURIFICATION CHEMIST BOY J 788.30 URINARY INCONTINENCE UNSPECIFIED 09/15/2013 ASHE[employer] WATER PURIFICATION CHEMISTJUAREZA J V25.9 CONTRACEPTION MANAGEMENT 09/15/2013 SALGUERO DO, PHILIPPE K 530.81 GERD 09/15/2013 SALGUERO DO, PHILIPPE K 788.30 URINARY INCONTINENCE UNSPECIFIED 09/15/2013 SALGUERO DO, PHILIPPE K V25.9 CONTRACEPTION MANAGEMENT 09/15/2013 [employer] W[employer] PURIFICATION CHEMIST, BOY J 530.81 GERD 09/15/2013 AS[employer] W[employer] PURIFICATION CHEMIST, BOY J 788.30 URINARY INCONTINENCE UNSPECIFIED 09/15/2013 ASHE[employer] W[employer] PURIFICATION CHEMIST, BOY J V25.9 CONTRACEPTION MANAGEMENT 09/15/2013 [facility], JACKIE R 530.81 GERD 09/15/2013 [facility] 788.30 URINARY INCONTINENCE UNSPECIFIED 09/15/2013 [facility], JACKIE R V25.9 CONTRACEPTION MANAGEMENT 09/15/2013 SALGUERO DO, PHILIPPE K 530.81 GERD 09/15/2013 SALGUERO DO, PHILIPPE K 788.30 URINARY INCONTINENCE UNSPECIFIED 09/15/2013 SALGUERO DO, PHILIPPE K V25.9 CONTRACEPTION MANAGEMENT 09/15/2013 SALGUERO DO, PHILIPPE K 530.81 GERD 09/15/2013 SALGUERO DO, PHILIPPE K 788.30 URINARY INCONTINENCE UNSPECIFIED 09/15/2013 SALGUERO DO, PHILIPPE K V25.9 CONTRACEPTION MANAGEMENT 09/15/2013 [facility] [employer] PURIFICATION CHEMIST, CHRIS A 530.81 GERD 09/15/2013 [employer] W[employer] PURIFICATION CHEMIST, CHRIS A 788.30 URINARY INCONTINENCE UNSPECIFIED 09/15/2013 [employer] W[employer] PURIFICATION CHEMIST, CHRIS A V25.9 CONTRACEPTION MANAGEMENT 09/15/2013 SALGUERO DO, PHILIPPE K 530.81 GERD 09/15/2013 SALGUERO DO, PHILIPPE K 788.30 URINARY INCONTINENCE UNSPECIFIED 09/15/2013 SALGUERO DO, PHILIPPE K V25.9 CONTRACEPTION MANAGEMENT 09/15/2013 [employer] W[employer] PURIFICATION CHEMIST, BOY J 530.81 GERD 09/15/2013 ASHE[facility] WATER PURIFICATION CHEMISTJUAREZA J 788.30 URINARY INCONTINENCE UNSPECIFIED 09/15/2013 [employer] W[employer] PURIFICATION CHEMIST, BOY J V25.9 CONTRACEPTION MANAGEMENT 09/15/2013 SALGUERO DO, PHILIPPE K 530.81 GERD 09/15/2013 SALGUERO DO, PHILIPPE K 788.30 URINARY INCONTINENCE UNSPECIFIED 09/15/2013 SALGUERO DO, PHILIPPE K V25.9 CONTRACEPTION MANAGEMENT 10/16/2013 SALGUERO DO, PHILIPPE K 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 10/16/2013 TANISHA SALGUERO DOA K 459.89 OTHER SPECIFIED CIRCULATORY SYSTEM DISORDERS 10/16/2013 PHILIPPE SALGUERO DO K 727.49 OTHER GANGLION AND CYST OF SYNOVIUM TENDON AND BURSA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 (CURRENT) DRUG THERAPY 11/12/2015 ROCÍO STERN MD [...] BODY MASS INDEX (BMI) 40.0-44.9, ADULT 11/12/2015 ORCÍO STERN MD, Ot Z79.899 OTHER HR SHARED SERVICES CONSULTANT (CURRENT) DRUG THERAPY 11/12/2015 ROCÍO STERN MD, [...] GASTRO-ESOPHAGEAL REFLUX DISEASE WITHOUT 11/12/2015 ROCÍO STERN MD, Ot Z68.41 BODY MASS INDEX (BMI) 40.0-44.9, ADULT 11/12/2015 ROCÍO STERN MD, Ot Z79.899 OTHER HR SHARED SERVICES CONSULTANT (CURRENT) DRUG THERAPY 11/20/2015 ROCÍO STERN MD, Ot 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 11/20/2015 ROCÍO STERN MD Ot E66.01 MORBID (SEVERE) OBESITY DUE TO EXCESS CA 11/20/2015 ROCÍO STERN MD Ot E78.5 HYPERLIPIDEMIA, UNSPECIFIED 11/20/2015 ROCÍO STERN MD, Ot F31.9 BIPOLAR DISORDER, UNSPECIFIED 11/20/2015 ROCÍO STERN MD Ot I10 ESSENTIAL (PRIMARY) HYPERTENSION 11/20/2015 ROCÍO STERN MD, Ot J44.9 CHRONIC OBSTRUCTIVE PULMONARY DISEASE, U 11/20/2015 ROCÍO STERN MD, Ot K21.9 GASTRO-ESOPHAGEAL REFLUX DISEASE WITHOUT 11/20/2015 ROCÍO STERN MD, Ot Z68.41 BODY MASS INDEX (BMI) 40.0-44.9, ADULT 11/20/2015 ROCÍO STERN MD, Ot Z79.899 OTHER HR SHARED SERVICES CONSULTANT (CURRENT) DRUG THERAPY 01/20/2016 ROCÍO STERN MD, Ot 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 01/20/2016 ROCÍO STERN MD Ot E66.01 MORBID (SEVERE) OBESITY DUE TO EXCESS CA 01/20/2016 ROCÍO STERN MD, Ot E78.5 HYPERLIPIDEMIA, UNSPECIFIED 01/20/2016 JARRED CASTRO, ROCÍO Ot F31.9 BIPOLAR DISORDER, UNSPECIFIED 01/20/2016 ROCÍO STERN MD Ot I10 ESSENTIAL (PRIMARY) HYPERTENSION 01/20/2016 ROCÍO STERN MD Ot J44.9 CHRONIC OBSTRUCTIVE PULMONARY DISEASE, U 01/20/2016 ROCÍO STERN MD Ot K21.9 GASTRO-ESOPHAGEAL REFLUX DISEASE WITHOUT 01/20/2016 ROCÍO STERN MD Ot Z68.41 BODY MASS INDEX (BMI) 40.0-44.9, ADULT 01/20/2016 ROCÍO TSERN MD Ot Z79.899 OTHER HR SHARED SERVICES CONSULTANT (CURRENT) DRUG THERAPY 01/20/2016 XAVIER GARSIA Ot [...] ADULT 01/20/2016 XAVIER GARSIA Ot Z79.899 OTHER HR SHARED SERVICES CONSULTANT (CURRENT) DRUG THERAPY 01/28/2016 CHRIS WINTER WATER PURIFICATION CHEMIST Ot 626.8 MENSTRUAL DISORDER NEC 01/28/2016 MAGALLANES DO MYNOR C Ot 626.8 MENSTRUAL DISORDER NEC 01/28/2016 MAGALLANES DO MYNOR C Ot V72.84 EXAM PRE-OPERATIVE NOS 01/28/2016 MAGALLANES DO MYNOR C Ot V74.8 SCREEN-BACTERIAL DIS NEC 01/28/2016 MAGALLANES DO MYNOR C Ot 626.9 MENSTRUAL DISORDER NOS 01/28/2016 MAGALLANES DO MYNOR C Ot V72.84 EXAM PRE-OPERATIVE NOS 01/28/2016 MAGALLANESLeon OLVERA MYNOR C Ot 789.00 ABDOMINAL PAIN, UNSPECIFIED SITE 01/28/2016 ELIZABETH LEYVA WATER PURIFICATION CHEMIST Ot N63 UNSPECIFIED LUMP IN BREAST 01/28/2016 [...] ENCOUNTER FOR SCREENING FOR OTHER BACTER 01/28/2016 RG CODY Shrama THERAPEUTIC SPECIALIST Ot 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 01/28/2016 KAREN DIEZSARAH Sharma THERAPEUTIC SPECIALIST Ot E66.01 MORBID (SEVERE) OBESITY DUE TO EXCESS CA 01/28/2016 RG CODY Sharma THERAPEUTIC SPECIALIST Ot E78.5 HYPERLIPIDEMIA, UNSPECIFIED 01/28/2016 KAREN DIEZSARAH Sharma THERAPEUTIC SPECIALIST Ot F31.9 BIPOLAR DISORDER, UNSPECIFIED 01/28/2016 KAREN DIEZSARAH Edith THERAPEUTIC SPECIALIST Ot I10 ESSENTIAL (PRIMARY) HYPERTENSION 01/28/2016 KAREN DIEZSARAH Sharma THERAPEUTIC SPECIALIST Ot J44.9 CHRONIC OBSTRUCTIVE PULMONARY DISEASE, U 01/28/2016 KARNE DIEZSARAH Sharma THERAPEUTIC SPECIALIST Ot K21.9 GASTRO-ESOPHAGEAL REFLUX DISEASE WITHOUT 01/28/2016 KAREN DIEZSARAH Sharma THERAPEUTIC SPECIALIST Ot Z17.0 ESTROGEN RECEPTOR POSITIVE STATUS [ER+] 01/28/2016 KAREN DIEZSARAH Sharma THERAPEUTIC SPECIALIST Ot Z68.41 BODY MASS INDEX (BMI) 40.0-44.9, ADULT 01/28/2016 RG CODY Sharma THERAPEUTIC SPECIALIST Ot Z79.899 OTHER HR SHARED SERVICES CONSULTANT (CURRENT) DRUG THERAPY 01/28/2016 ADYXAVIER Ot 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 01/28/2016 XAVIER GARSIA Ot E66.01 MORBID (SEVERE) OBESITY DUE TO EXCESS CA 01/28/2016 XAVIER GARSIA Ot E78.5 HYPERLIPIDEMIA, UNSPECIFIED 01/28/2016 ADYXAVIER ALCOCER Ot F31.9 BIPOLAR DISORDER, UNSPECIFIED 01/28/2016 ADYXAVIER ALCOCER Ot I10 ESSENTIAL (PRIMARY) HYPERTENSION 01/28/2016 XAVIER GARSIA N Ot J44.9 CHRONIC OBSTRUCTIVE PULMONARY DISEASE, U 01/28/2016 XAVIER GARSIA N Ot K21.9 GASTRO-ESOPHAGEAL REFLUX DISEASE WITHOUT 01/28/2016 XAVIER GARSIA Ot Z68.41 BODY MASS INDEX (BMI) 40.0-44.9, ADULT 01/28/2016 XAVIER GARSIA Ot Z79.899 OTHER HR SHARED SERVICES CONSULTANT (CURRENT) DRUG THERAPY 01/28/2016 XAVIER GARSIA Ot [...] ADULT 01/28/2016 XAVIER GARSIA Ot Z79.899 OTHER HR SHARED SERVICES CONSULTANT (CURRENT) DRUG THERAPY 02/24/2016 CHRIS WINTER WATER PURIFICATION CHEMIST Ot 626.8 MENSTRUAL DISORDER NEC 02/24/2016 MYNOR MAGALLANES DO Ot 626.8 MENSTRUAL DISORDER NEC 02/24/2016 MYNOR MAGALLANES DO Ot V72.84 EXAM PRE-OPERATIVE NOS 02/24/2016 MYNOR MAGALLANES DO Ot V74.8 SCREEN-BACTERIAL DIS NEC 02/24/2016 MYNOR MAGALLANES DO Ot 626.9 MENSTRUAL DISORDER NOS 02/24/2016 MYNOR MAGALLANES DO Ot V72.84 EXAM PRE-OPERATIVE NOS 02/24/2016 MYNOR MAGALLANES DO C Ot 789.00 ABDOMINAL PAIN, UNSPECIFIED SITE 02/24/2016 ELIZABETH LEYVA WATER PURIFICATION CHEMIST Ot N63 UNSPECIFIED LUMP IN BREAST 02/24/2016 [...] OF UPPER-OUTER QUADRANT O 02/24/2016 CODY DIEZ THERAPEUTIC SPECIALIST Ot E66.01 MORBID (SEVERE) OBESITY DUE TO EXCESS CA 02/24/2016 CODY DIEZP Ot E78.5 HYPERLIPIDEMIA, UNSPECIFIED 02/24/2016 CODY DIEZP Ot F31.9 BIPOLAR DISORDER, UNSPECIFIED 02/24/2016 CODY DIEZ Ot I10 ESSENTIAL (PRIMARY) HYPERTENSION 02/24/2016 CODY DIEZ Ot J44.9 CHRONIC OBSTRUCTIVE PULMONARY DISEASE, U 02/24/2016 CODY DIEZP Ot K21.9 GASTRO-ESOPHAGEAL REFLUX DISEASE WITHOUT 02/24/2016 CODY DIEZ THERAPEUTIC SPECIALIST Ot Z17.0 ESTROGEN RECEPTOR POSITIVE STATUS [ER+] 02/24/2016 CODY DIEZ THERAPEUTIC SPECIALIST Ot Z68.41 BODY MASS INDEX (BMI) 40.0-44.9, ADULT 02/24/2016 CODY DIEZ THERAPEUTIC SPECIALIST Ot Z79.899 OTHER HR SHARED SERVICES CONSULTANT (CURRENT) DRUG THERAPY 02/24/2016 XAVIER GARSIA Ot 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 02/24/2016 XAVIER GARSIA Ot E66.01 MORBID (SEVERE) OBESITY DUE TO EXCESS CA 02/24/2016 XAVIER GARSIA N Ot E78.5 HYPERLIPIDEMIA, UNSPECIFIED 02/24/2016 ADYXAVIER ALCOCER Ot F31.9 BIPOLAR DISORDER, UNSPECIFIED 02/24/2016 ADYXAVIER ALCOCER N Ot I10 ESSENTIAL (PRIMARY) HYPERTENSION 02/24/2016 XAVIER GARSIA N Ot J44.9 CHRONIC OBSTRUCTIVE PULMONARY DISEASE, U 02/24/2016 XAVIER GARSIA N Ot K21.9 GASTRO-ESOPHAGEAL REFLUX DISEASE WITHOUT 02/24/2016 XAVIER GARSIA Ot Z68.41 BODY MASS INDEX (BMI) 40.0-44.9, ADULT 02/24/2016 XAVIER GARSIA Ot Z79.899 OTHER HR SHARED SERVICES CONSULTANT (CURRENT) DRUG THERAPY 03/20/2016 XAVIER GARSIA Ot 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 03/20/2016 XAVIER GARSIA Ot E66.01 MORBID (SEVERE) OBESITY DUE TO EXCESS CA 03/20/2016 XAVIER GARSIA Ot E78.5 HYPERLIPIDEMIA, UNSPECIFIED 03/20/2016 XAVIER GARSIA Ot F31.9 BIPOLAR DISORDER, UNSPECIFIED 03/20/2016 XVAIER GARSIA Ot I10 ESSENTIAL (PRIMARY) HYPERTENSION 03/20/2016 XAVIER GARSIA Ot J44.9 CHRONIC OBSTRUCTIVE PULMONARY DISEASE, U 03/20/2016 XAVIER GARSIA Ot K21.9 GASTRO-ESOPHAGEAL REFLUX DISEASE WITHOUT 03/20/2016 XAVIER GARSIA Ot Z68.41 BODY MASS INDEX (BMI) 40.0-44.9, ADULT 03/20/2016 XAVIER GARSIA Ot Z79.899 OTHER HR SHARED SERVICES CONSULTANT (CURRENT) DRUG THERAPY 04/15/2016 CHRIS WINTER WATER PURIFICATION CHEMIST Ot 626.8 MENSTRUAL DISORDER NEC 04/15/2016 MAGALLANES DO, MYNOR C Ot 626.8 MENSTRUAL DISORDER NEC 04/15/2016 MAGALLANES DO, MYNOR C Ot V72.84 EXAM PRE-OPERATIVE NOS 04/15/2016 MAGALLANES DO, MYNOR C Ot V74.8 SCREEN-BACTERIAL DIS NEC 04/15/2016 MAGALLANES DO, MYNOR C Ot 626.9 MENSTRUAL DISORDER NOS 04/15/2016 MAGALLANES DO, MYNOR C Ot V72.84 EXAM PRE-OPERATIVE NOS 04/15/2016 MAGALLANES DO, MYNOR C Ot 789.00 ABDOMINAL PAIN, UNSPECIFIED SITE 04/15/2016 ELIZABETH LEYVA WATER PURIFICATION CHEMIST Ot N63 UNSPECIFIED LUMP IN BREAST 04/15/2016 BEN CASTRO, LIZZIE [place] Ot N32.81 OVERACTIVE BLADDER 04/15/2016 BEN CASTRO, LIZZIE [place] Ot N39.46 MIXED INCONTINENCE 04/15/2016 BEN CSATRO, LIZZIE rFance Ot Z01.818 ENCOUNTER FOR OTHER PREPROCEDURAL EXAMIN 04/15/2016 BEN CASTRO, LIZZIE [place] Ot Z11.2 ENCOUNTER FOR SCREENING FOR OTHER BACTER 04/15/2016 SOFIA CASTRO, ANJUM Ferreira Ot C50.912 MALIGNANT NEOPLASM OF UNSPECIFIED SITE O 04/15/2016 Ot C50.912 MALIGNANT NEOPLASM OF UNSPECIFIED SITE O 04/15/2016 Ot Z01.818 ENCOUNTER FOR OTHER PREPROCEDURAL EXAMIN 04/15/2016 Ot Z11.2 ENCOUNTER FOR SCREENING FOR OTHER BACTER 04/15/2016 CODY DIEZ THERAPEUTIC SPECIALIST Ot 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 04/15/2016 CODY DIEZ THERAPEUTIC SPECIALIST Ot E66.01 MORBID (SEVERE) OBESITY DUE TO EXCESS CA 04/15/2016 CODY DIEZP Ot E78.5 HYPERLIPIDEMIA, UNSPECIFIED 04/15/2016 CODY DIEZ THERAPEUTIC SPECIALIST Ot F31.9 BIPOLAR DISORDER, UNSPECIFIED 04/15/2016 CODY DIEZP Ot I10 ESSENTIAL (PRIMARY) HYPERTENSION 04/15/2016 CODY DIEZ THERAPEUTIC SPECIALIST Ot J44.9 CHRONIC OBSTRUCTIVE PULMONARY DISEASE, U 04/15/2016 CODY DIEZ THERAPEUTIC SPECIALIST Ot K21.9 GASTRO-ESOPHAGEAL REFLUX DISEASE WITHOUT 04/15/2016 CODY DIEZ THERAPEUTIC SPECIALIST Ot Z17.0 ESTROGEN RECEPTOR POSITIVE STATUS [ER+] 04/15/2016 CODY DIEZ THERAPEUTIC SPECIALIST Ot Z68.41 BODY MASS INDEX (BMI) 40.0-44.9, ADULT 04/15/2016 CODY DIEZ THERAPEUTIC SPECIALIST Ot Z79.899 OTHER SENIOR CARE (CURRENT) DRUG THERAPY 04/15/2016 XAVIER GARSIA Ot 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 04/15/2016 ADYXAVIER ALCOCER N Ot E66.01 MORBID (SEVERE) OBESITY DUE TO EXCESS CA 04/15/2016 XAVIER GARSIA N Ot E78.5 HYPERLIPIDEMIA, UNSPECIFIED 04/15/2016 ADYXAVIER ALCOCER N Ot F31.9 BIPOLAR DISORDER, UNSPECIFIED 04/15/2016 ADYXAVIER ALCOCER N Ot I10 ESSENTIAL (PRIMARY) HYPERTENSION 04/15/2016 XAVIER GARSIA Ot J44.9 CHRONIC OBSTRUCTIVE PULMONARY DISEASE, U 04/15/2016 ADY, BOBAN N Ot K21.9 GASTRO-ESOPHAGEAL REFLUX DISEASE WITHOUT 04/15/2016 ADY, BOBAN N Ot Z68.41 BODY MASS INDEX (BMI) 40.0-44.9, ADULT 04/15/2016 ADY, CATAN N Ot Z79.899 OTHER HR SHARED SERVICES CONSULTANT (CURRENT) DRUG THERAPY 05/12/2016 ADY, BOBAN N Ot C50.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 [...] 05/12/2016 ADY, BOBAN N Ot Z79.899 OTHER SENIOR CARE (CURRENT) DRUG THERAPY 05/19/2016 ADY, BOBAN N [...] 05/19/2016 ADY, BOBAN N Ot Z79.899 OTHER HR SHARED SERVICES CONSULTANT (CURRENT) DRUG THERAPY 06/02/2016 ADY, BOBAN N Ot 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 06/02/2016 XAVIER GARSIA Ot E66.01 MORBID (SEVERE) OBESITY DUE TO EXCESS CA 06/02/2016 XAVIER GARSIA Ot E78.5 HYPERLIPIDEMIA, UNSPECIFIED 06/02/2016 XAVIER GARSIA Ot F31.9 BIPOLAR DISORDER, UNSPECIFIED 06/02/2016 XAVIER AGRSIA Ot I10 ESSENTIAL (PRIMARY) HYPERTENSION 06/02/2016 XAVIER GARSIA Ot J44.9 CHRONIC OBSTRUCTIVE PULMONARY DISEASE, U 06/02/2016 XAVIER GARSIA Ot K21.9 GASTRO-ESOPHAGEAL REFLUX DISEASE WITHOUT 06/02/2016 XAVIER GARSIA Ot Z68.41 BODY MASS INDEX (BMI) 40.0-44.9, ADULT 06/02/2016 XAVIER GARSIA Ot Z79.899 OTHER HR SHARED SERVICES CONSULTANT (CURRENT) DRUG THERAPY 06/02/2016 CHRIS WINTER WATER PURIFICATION CHEMIST Ot 626.8 MENSTRUAL DISORDER NEC 06/02/2016 MAGALLANES DO MYNOR C Ot 626.8 MENSTRUAL DISORDER NEC 06/02/2016 MAGALLANES DO MYNOR C Ot V72.84 EXAM PRE-OPERATIVE NOS 06/02/2016 MAGALLANES DO MYNOR C Ot V74.8 SCREEN-BACTERIAL DIS NEC 06/02/2016 MAGALLANES DO MYNOR C Ot 626.9 MENSTRUAL DISORDER NOS 06/02/2016 MAGALLANES DO MYNOR C Ot V72.84 EXAM PRE-OPERATIVE NOS 06/02/2016 SONA OLVERA MYNOR C Ot 789.00 ABDOMINAL PAIN, UNSPECIFIED SITE 06/02/2016 ELIZABETH LEYVA WATER PURIFICATION CHEMIST Ot N63 UNSPECIFIED LUMP IN BREAST 06/02/2016 [...] ENCOUNTER FOR SCREENING FOR OTHER BACTER 06/02/2016 CODY DIEZP Ot 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 06/02/2016 CODY DIEZP Ot E66.01 MORBID (SEVERE) OBESITY DUE TO EXCESS CA 06/02/2016 CODY DIEZP Ot E78.5 HYPERLIPIDEMIA, UNSPECIFIED 06/02/2016 CODY DIEZ THERAPEUTIC SPECIALIST Ot F31.9 BIPOLAR DISORDER, UNSPECIFIED 06/02/2016 CODY DIEZP Ot I10 ESSENTIAL (PRIMARY) HYPERTENSION 06/02/2016 DIEZCODY SharmaP Ot J44.9 CHRONIC OBSTRUCTIVE PULMONARY DISEASE, U 06/02/2016 CODY DIEZP Ot K21.9 GASTRO-ESOPHAGEAL REFLUX DISEASE WITHOUT 06/02/2016 DIEZCODY SharmaP Ot Z17.0 ESTROGEN RECEPTOR POSITIVE STATUS [ER+] 06/02/2016 DIEZCODY Sharma THERAPEUTIC SPECIALIST Ot Z68.41 BODY MASS INDEX (BMI) 40.0-44.9, ADULT 06/02/2016 DIEZCODY SharmaP Ot Z79.899 OTHER HR SHARED SERVICES CONSULTANT (CURRENT) DRUG THERAPY 06/02/2016 XAVIER GARSIA Veena Ot 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 06/02/2016 ADYXAVIER Ot E66.01 MORBID (SEVERE) OBESITY DUE TO EXCESS CA 06/02/2016 XAVIER GARSIA Ot E78.5 HYPERLIPIDEMIA, UNSPECIFIED 06/02/2016 XAVIER GARSIA Ot F31.9 BIPOLAR DISORDER, UNSPECIFIED 06/02/2016 XAVIER GARSIA N Ot I10 ESSENTIAL (PRIMARY) HYPERTENSION 06/02/2016 XAVIER GARSIA Ot J44.9 CHRONIC OBSTRUCTIVE PULMONARY DISEASE, U 06/02/2016 XVAIER GARSIA N Ot K21.9 GASTRO-ESOPHAGEAL REFLUX DISEASE WITHOUT 06/02/2016 ADYXAVIER ALCOCER N Ot Z68.41 BODY MASS INDEX (BMI) 40.0-44.9, ADULT 06/02/2016 XAVIER GARSIA Ot Z79.899 OTHER SENIOR CARE (CURRENT) DRUG THERAPY 06/17/2016 ADYXAVIER N Ot 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 06/17/2016 ADY, BOBAN N Ot E66.01 MORBID (SEVERE) OBESITY DUE TO EXCESS CA 06/17/2016 ADY, BOBAN N Ot E78.5 HYPERLIPIDEMIA, UNSPECIFIED 06/17/2016 ADYXAVIER N Ot F31.9 BIPOLAR DISORDER, UNSPECIFIED 06/17/2016 ADY BOBAN N Ot I10 ESSENTIAL (PRIMARY) HYPERTENSION 06/17/2016 ADY, BOBAN N Ot J44.9 CHRONIC OBSTRUCTIVE PULMONARY DISEASE, U 06/17/2016 ADY, BOBAN N Ot K21.9 GASTRO-ESOPHAGEAL REFLUX DISEASE WITHOUT 06/17/2016 ADY, BOBAN N Ot Z68.41 BODY MASS INDEX (BMI) 40.0-44.9, ADULT 06/17/2016 ADYXAVIER N Ot Z79.899 OTHER SENIOR CARE (CURRENT) DRUG THERAPY 06/18/2016 ADYXAVIER N Ot 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 06/18/2016 ADY, BOBAN N Ot E66.01 MORBID (SEVERE) OBESITY DUE TO EXCESS CA 06/18/2016 ADY, XAVIER N Ot E78.5 HYPERLIPIDEMIA, UNSPECIFIED 06/18/2016 ADY, XAVIER N Ot F31.9 BIPOLAR DISORDER, UNSPECIFIED 06/18/2016 ADY, BOBAN N Ot I10 ESSENTIAL (PRIMARY) HYPERTENSION 06/18/2016 ADY XAVIER N Ot J44.9 CHRONIC OBSTRUCTIVE PULMONARY DISEASE, U 06/18/2016 ADYXAVIER N Ot K21.9 GASTRO-ESOPHAGEAL REFLUX DISEASE WITHOUT 06/18/2016 ADYXAVIER N Ot Z68.41 BODY MASS INDEX (BMI) 40.0-44.9, ADULT 06/18/2016 ADY BOBAN N Ot Z79.899 OTHER SENIOR CARE (CURRENT) DRUG THERAPY 06/18/2016 CHRIS WINTER APRN [...] OBESITY DUE TO EXCESS CA 06/18/2016 CODY DIEZ Ot E78.5 HYPERLIPIDEMIA, UNSPECIFIED 06/18/2016 CODY DIEZ Ot F31.9 BIPOLAR DISORDER, UNSPECIFIED 06/18/2016 CODY DIEZP Ot I10 ESSENTIAL (PRIMARY) HYPERTENSION 06/18/2016 CODY DIEZ Ot J44.9 CHRONIC OBSTRUCTIVE PULMONARY DISEASE, U 06/18/2016 CODY DIEZ Ot K21.9 GASTRO-ESOPHAGEAL REFLUX DISEASE WITHOUT 06/18/2016 CODY DIEZ Ot Z17.0 ESTROGEN RECEPTOR POSITIVE STATUS [ER+] 06/18/2016 CODY DIEZ Ot Z68.41 BODY MASS INDEX (BMI) 40.0-44.9, ADULT 06/18/2016 DIEZCODY REX Ot Z79.899 OTHER HR SHARED SERVICES CONSULTANT (CURRENT) DRUG THERAPY 06/18/2016 ADYXAVIER N Ot [...] MASS INDEX (BMI) 40.0-44.9, ADULT 06/18/2016 ADY, BOBSACHI N Ot Z79.899 OTHER HR SHARED SERVICES CONSULTANT (CURRENT) DRUG THERAPY 06/18/2016 ADY BOBSACHI N Ot 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 06/18/2016 ADY, BOBAN N Ot E66.01 MORBID (SEVERE) OBESITY DUE TO EXCESS CA 06/18/2016 ADY, BOBSACHI N Ot E78.5 HYPERLIPIDEMIA, UNSPECIFIED 06/18/2016 ADY, BOBAN N Ot F31.9 BIPOLAR DISORDER, UNSPECIFIED 06/18/2016 ADY, BOBAN N Ot I10 ESSENTIAL (PRIMARY) HYPERTENSION 06/18/2016 ADYXAVIER N Ot J44.9 CHRONIC OBSTRUCTIVE PULMONARY DISEASE, U 06/18/2016 ADY, BOBAN N Ot K21.9 GASTRO-ESOPHAGEAL REFLUX DISEASE WITHOUT 06/18/2016 ADY, BOBAN N Ot Z68.41 BODY MASS INDEX (BMI) 40.0-44.9, ADULT 06/18/2016 ADY, BOBAN N Ot Z79.899 OTHER HR SHARED SERVICES CONSULTANT (CURRENT) DRUG THERAPY 06/24/2016 ADY BOBAN N Ot 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 06/24/2016 ADY, BOBAN N Ot E66.01 MORBID (SEVERE) OBESITY DUE TO EXCESS CA 06/24/2016 XAVIER GARSIA N Ot E78.5 HYPERLIPIDEMIA, UNSPECIFIED 06/24/2016 XAVIER GARSIA N Ot F31.9 BIPOLAR DISORDER, UNSPECIFIED 06/24/2016 XAVIER GARSIA N Ot I10 ESSENTIAL (PRIMARY) HYPERTENSION 06/24/2016 XAVIER GARSIA N Ot J44.9 CHRONIC OBSTRUCTIVE PULMONARY DISEASE, U 06/24/2016 XAIVER GARSIA N Ot K21.9 GASTRO-ESOPHAGEAL REFLUX DISEASE WITHOUT 06/24/2016 XAVIER GARSIA N Ot Z68.41 BODY MASS INDEX (BMI) 40.0-44.9, ADULT 06/24/2016 XAVIER GARSIA N Ot Z79.899 OTHER SENIOR CARE (CURRENT) DRUG THERAPY 07/29/2016 XAVIER GARSIA N Ot C50.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 [...] 07/29/2016 XAVIER GARSIA N Ot Z79.899 OTHER HR SHARED SERVICES CONSULTANT (CURRENT) DRUG THERAPY 08/04/2016 CHRIS WINTER APRN Ot 626.8 MENSTRUAL DISORDER NEC 08/04/2016 MAGALLANESMYNOR Quintero DO Ot 626.8 MENSTRUAL DISORDER NEC 08/04/2016 MYNOR MAGALLANES DO Ot V72.84 EXAM PRE-OPERATIVE NOS 08/04/2016 MYNOR MAGALLANES DO Ot V74.8 SCREEN-BACTERIAL DIS NEC 08/04/2016 MYNOR MAGALLANES DO Ot 626.9 MENSTRUAL DISORDER NOS 08/04/2016 MYNOR MAGALLANES DO Ot V72.84 EXAM PRE-OPERATIVE NOS 08/04/2016 MYNOR MAGALLANES DO Ot 789.00 ABDOMINAL PAIN, UNSPECIFIED SITE 08/04/2016 ELIZABETH LEYVA APRN Ot N63 UNSPECIFIED LUMP [...] OF UPPER-OUTER QUADRANT O 08/04/2016 CODY DIEZ THERAPEUTIC SPECIALIST Ot E66.01 MORBID (SEVERE) OBESITY DUE TO EXCESS CA 08/04/2016 CODY DIEZP Ot E78.5 HYPERLIPIDEMIA, UNSPECIFIED 08/04/2016 CODY DIEZP Ot F31.9 BIPOLAR DISORDER, UNSPECIFIED 08/04/2016 CODY DIEZP Ot I10 ESSENTIAL (PRIMARY) HYPERTENSION 08/04/2016 CODY DIEZP Ot J44.9 CHRONIC OBSTRUCTIVE PULMONARY DISEASE, U 08/04/2016 CODY DIEZ THERAPEUTIC SPECIALIST Ot K21.9 GASTRO-ESOPHAGEAL REFLUX DISEASE WITHOUT 08/04/2016 CODY DIEZ THERAPEUTIC SPECIALIST Ot Z17.0 ESTROGEN RECEPTOR POSITIVE STATUS [ER+] 08/04/2016 CODY DIEZ THERAPEUTIC SPECIALIST Ot Z68.41 BODY MASS INDEX (BMI) 40.0-44.9, ADULT 08/04/2016 CODY DIEZ THERAPEUTIC SPECIALIST Ot Z79.899 OTHER SENIOR CARE (CURRENT) DRUG THERAPY 08/04/2016 XAVIER GARSIA Ot 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 08/04/2016 XAVIER GARSIA Ot E66.01 MORBID (SEVERE) OBESITY DUE TO EXCESS CA 08/04/2016 XAVIER GARSIA Ot E78.5 HYPERLIPIDEMIA, UNSPECIFIED 08/04/2016 XAVIER GARSIA Ot F31.9 BIPOLAR DISORDER, UNSPECIFIED 08/04/2016 XAIVER GARSIA Ot I10 ESSENTIAL (PRIMARY) HYPERTENSION 08/04/2016 XAVIER GARSIA Ot J44.9 CHRONIC OBSTRUCTIVE PULMONARY DISEASE, U 08/04/2016 XAVIER GARSIA Ot K21.9 GASTRO-ESOPHAGEAL REFLUX DISEASE WITHOUT 08/04/2016 XAVIER GARSIA Ot Z68.41 BODY MASS INDEX (BMI) 40.0-44.9, ADULT 08/04/2016 XAVIER GARSIA Ot Z79.899 OTHER HR SHARED SERVICES CONSULTANT (CURRENT) DRUG THERAPY 08/04/2016 CODY DIEZ THERAPEUTIC SPECIALIST Ot 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 08/04/2016 CODY DIEZP Ot Z12.31 ENCNTR SCREEN MAMMOGRAM FOR MALIGNANT NE 08/06/2016 CODY DIEZ THERAPEUTIC SPECIALIST Ot 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 08/06/2016 CODY IDEZ THERAPEUTIC SPECIALIST Ot Z12.31 ENCNTR SCREEN MAMMOGRAM FOR MALIGNANT NE 08/06/2016 CODY DIEZ THERAPEUTIC SPECIALIST Ot 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 08/06/2016 CODY DIEZP Ot Z12.31 ENCNTR SCREEN MAMMOGRAM FOR MALIGNANT NE 08/06/2016 CODY DIEZ THERAPEUTIC SPECIALIST Ot 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 08/06/2016 CODY DIEZ THERAPEUTIC SPECIALIST Ot Z12.31 ENCNTR SCREEN MAMMOGRAM FOR MALIGNANT NE 08/07/2016 CODY DIEZ THERAPEUTIC SPECIALIST Ot 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 08/07/2016 CODY DIEZ THERAPEUTIC SPECIALIST Ot 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 08/07/2016 CODY DIEZ THERAPEUTIC SPECIALIST Ot Z12.31 ENCNTR SCREEN MAMMOGRAM FOR MALIGNANT NE 08/07/2016 CODY DIEZP Ot Z79.818 LNG TRM (CRNT) USE OF AGNT AFF ESTROG RE 08/07/2016 CODY DIEZP Ot Z90.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, BILATERAL 08/31/2016 CODY DIEZP Ot 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 08/31/2016 CODY DIEZP Ot 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 08/31/2016 CODY DIEZP Ot Z12.31 ENCNTR SCREEN MAMMOGRAM FOR MALIGNANT NE 08/31/2016 CODY DIEZ Ot Z79.818 LNG TRM (CRNT) USE OF AGNT AFF ESTROG RE 08/31/2016 CODY DIEZ THERAPEUTIC SPECIALIST Ot Z90.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, BILATERAL 09/07/2016 CODY DIEZ THERAPEUTIC SPECIALIST Ot 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 09/07/2016 CODY DIEZ THERAPEUTIC SPECIALIST Ot 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 09/07/2016 CODY DIEZ THERAPEUTIC SPECIALIST Ot Z12.31 ENCNTR SCREEN MAMMOGRAM FOR MALIGNANT NE 09/07/2016 CODY DIEZP Ot Z79.818 LNG TRM (CRNT) USE OF AGNT AFF ESTROG RE 09/07/2016 CODY DIEZ THERAPEUTIC SPECIALIST Ot Z90.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, BILATERAL 09/10/2016 CODY DIEZP Ot 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 09/10/2016 CODY DIEZ THERAPEUTIC SPECIALIST Ot 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 09/10/2016 CODY DIEZ THERAPEUTIC SPECIALIST Ot Z12.31 ENCNTR SCREEN MAMMOGRAM FOR MALIGNANT NE 09/10/2016 CODY DIEZ Ot Z79.818 LNG TRM (CRNT) USE OF AGNT AFF ESTROG RE 09/10/2016 CODY DIEZ THERAPEUTIC SPECIALIST Ot Z90.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, [...] NEOPLASM OF UPPER-OUTER QUADRANT O 09/10/2016 CODY DIEZP Ot E66.01 MORBID (SEVERE) OBESITY [...] MASS INDEX (BMI) 40.0-44.9, ADULT 09/10/2016 CODY DIEZ THERAPEUTIC SPECIALIST Ot Z79.899 OTHER HR SHARED SERVICES CONSULTANT (CURRENT) DRUG THERAPY 09/10/2016 XAVIER GARSIA Veena Ot C50.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 [...] OBSTRUCTIVE PULMONARY DISEASE, U 09/10/2016 XAVIER GARSIA Veena Ot K21.9 GASTRO-ESOPHAGEAL REFLUX DISEASE WITHOUT 09/10/2016 XAVIER GARSIA N Ot Z68.41 BODY MASS INDEX (BMI) 40.0-44.9, ADULT 09/10/2016 XAVIER GARSIA N Ot Z79.899 OTHER SENIOR CARE (CURRENT) DRUG THERAPY 09/10/2016 CODY DIEZ THERAPEUTIC SPECIALIST Ot 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 09/10/2016 CODY DIEZ THERAPEUTIC SPECIALIST Ot 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 09/10/2016 CODY DIEZ THERAPEUTIC SPECIALIST Ot Z12.31 ENCNTR SCREEN MAMMOGRAM FOR MALIGNANT NE 09/10/2016 CODY DIEZ THERAPEUTIC SPECIALIST Ot Z79.818 LNG TRM (CRNT) USE OF AGNT AFF ESTROG RE 09/10/2016 CODY DIEZ THERAPEUTIC SPECIALIST Ot Z90.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, BILATERAL 09/11/2016 XAVIER GARSIA N Ot 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 09/11/2016 XAVIER GARSIA Veena Ot E66.01 MORBID (SEVERE) OBESITY DUE TO EXCESS CA 09/11/2016 XAVIER GARSIA Veena Ot E78.5 HYPERLIPIDEMIA, UNSPECIFIED 09/11/2016 XAVIER GARSIA N Ot F31.9 BIPOLAR DISORDER, UNSPECIFIED 09/11/2016 XAVIER GARSIA N Ot I10 ESSENTIAL (PRIMARY) HYPERTENSION 09/11/2016 XAVIER GARSIA Veena Ot J44.9 CHRONIC OBSTRUCTIVE PULMONARY DISEASE, U 09/11/2016 XAVIER GARSIA N Ot K21.9 GASTRO-ESOPHAGEAL REFLUX DISEASE WITHOUT 09/11/2016 XAVIER GARSIA N Ot Z68.41 BODY MASS INDEX (BMI) 40.0-44.9, ADULT 09/11/2016 XAVIER GARSIA N Ot Z79.899 OTHER HR SHARED SERVICES CONSULTANT (CURRENT) DRUG THERAPY 09/18/2016 ADY CATSACHI Veena Ot 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 09/18/2016 XAVIER GARSIA N Ot E66.01 MORBID (SEVERE) OBESITY DUE TO EXCESS CA 09/18/2016 ADY, CATSACHI N Ot E78.5 HYPERLIPIDEMIA, UNSPECIFIED 09/18/2016 XAVIER GARSIA N Ot F31.9 BIPOLAR DISORDER, UNSPECIFIED 09/18/2016 ADY CATSACHI Veena Ot I10 ESSENTIAL (PRIMARY) HYPERTENSION 09/18/2016 XAVIER GARSIA Veena Ot J44.9 CHRONIC OBSTRUCTIVE PULMONARY DISEASE, U 09/18/2016 XAVIER GARSIA Veena Ot K21.9 GASTRO-ESOPHAGEAL REFLUX DISEASE WITHOUT 09/18/2016 XAVIER GARSIA N Ot Z68.41 BODY MASS INDEX (BMI) 40.0-44.9, ADULT 09/18/2016 XAVIER GARSIA N Ot Z79.899 OTHER HR SHARED SERVICES CONSULTANT (CURRENT) DRUG THERAPY 09/27/2016 RADHA GEORGES MD [...] MALIG NEOPLASM OF UPPER-OUTER QUADRANT O 10/26/2016 ADYCATSACHI N Ot E66.01 MORBID (SEVERE) OBESITY DUE TO EXCESS CA 10/26/2016 ADYXAVIER N Ot E78.5 HYPERLIPIDEMIA, UNSPECIFIED 10/26/2016 XAVIER GARSIA N Ot F31.9 BIPOLAR DISORDER, UNSPECIFIED 10/26/2016 ADYXAVIER ALCOCER N Ot I10 ESSENTIAL (PRIMARY) HYPERTENSION 10/26/2016 XAVIER GARSIA N Ot J44.9 CHRONIC OBSTRUCTIVE PULMONARY DISEASE, U 10/26/2016 XAVIER GARSIA N Ot K21.9 GASTRO-ESOPHAGEAL REFLUX DISEASE WITHOUT 10/26/2016 XAVIER GARSIA N Ot Z68.41 BODY MASS INDEX (BMI) 40.0-44.9, ADULT 10/26/2016 XAVIER GARSIA N Ot Z79.899 OTHER SENIOR CARE (CURRENT) DRUG THERAPY 10/26/2016 XAVIER GARSIA N [...] 10/26/2016 XAVIER GARSIA N Ot Z79.899 OTHER HR SHARED SERVICES CONSULTANT (CURRENT) DRUG THERAPY 10/26/2016 CHRIS WINTER APRN Ot 626.8 MENSTRUAL DISORDER NEC 10/26/2016 MAGALLANES DOMYNOR Ot 626.8 MENSTRUAL DISORDER NEC 10/26/2016 MAGALLANES DOLAMA C Ot V72.84 EXAM PRE-OPERATIVE NOS 10/26/2016 SONA DOLAMA C Ot V74.8 SCREEN-BACTERIAL DIS NEC 10/26/2016 SONA DO MYNOR C Ot 626.9 MENSTRUAL DISORDER NOS 10/26/2016 MAGALLANES DO MYNOR C Ot V72.84 EXAM PRE-OPERATIVE NOS 10/26/2016 LAM MAGALLANES DOA C Ot 789.00 ABDOMINAL PAIN, UNSPECIFIED SITE 10/26/2016 GORDON ELIZABETHDUSTIN [place] APRN Ot N63 UNSPECIFIED LUMP IN BREAST 10/26/2016 [...] FOR SCREENING FOR OTHER BACTER 10/26/2016 CODY DIEZ THERAPEUTIC SPECIALIST Ot 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 10/26/2016 CODY DIEZ THERAPEUTIC SPECIALIST Ot E66.01 MORBID (SEVERE) OBESITY DUE TO EXCESS CA 10/26/2016 CODY DIEZP Ot E78.5 HYPERLIPIDEMIA, UNSPECIFIED 10/26/2016 CODY DIEZP Ot F31.9 BIPOLAR DISORDER, UNSPECIFIED 10/26/2016 CODY DIEZ THERAPEUTIC SPECIALIST Ot I10 ESSENTIAL (PRIMARY) HYPERTENSION 10/26/2016 CODY DIEZP Ot J44.9 CHRONIC OBSTRUCTIVE PULMONARY DISEASE, U 10/26/2016 CODY DIEZ THERAPEUTIC SPECIALIST Ot K21.9 GASTRO-ESOPHAGEAL REFLUX DISEASE WITHOUT 10/26/2016 CODY DIEZ THERAPEUTIC SPECIALIST Ot Z17.0 ESTROGEN RECEPTOR POSITIVE STATUS [ER+] 10/26/2016 CODY DIEZ THERAPEUTIC SPECIALIST Ot Z68.41 BODY MASS INDEX (BMI) 40.0-44.9, ADULT 10/26/2016 CODY DIEZ THERAPEUTIC SPECIALIST Ot Z79.899 OTHER SENIOR CARE (CURRENT) DRUG THERAPY 10/26/2016 XAVIER GARSIA Ot [...] ADULT 10/26/2016 XAVIER GARSIA Ot Z79.899 OTHER SENIOR CARE (CURRENT) DRUG THERAPY 10/26/2016 CODY DIEZ THERAPEUTIC SPECIALIST Ot 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 10/26/2016 CODY DIEZ THERAPEUTIC SPECIALIST Ot 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 10/26/2016 CODY DIEZ Ot Z12.31 ENCNTR SCREEN MAMMOGRAM FOR MALIGNANT NE 10/26/2016 CODY DIEZP Ot Z79.818 LNG TRM (CRNT) USE OF AGNT AFF ESTROG RE 10/26/2016 CODY DIEZ THERAPEUTIC SPECIALIST Ot Z90.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, BILATERAL 11/27/2016 CHRIS WINTER WATER PURIFICATION CHEMIST Ot 626.8 MENSTRUAL DISORDER NEC 11/27/2016 MYNOR MAGALLANES DO Ot 626.8 MENSTRUAL DISORDER NEC 11/27/2016 MYNOR MAGALLANES DO Ot V72.84 EXAM PRE-OPERATIVE NOS 11/27/2016 MYNOR MAGALLANES DO Ot V74.8 SCREEN-BACTERIAL DIS NEC 11/27/2016 MYNOR MAGALLANES DO Ot 626.9 MENSTRUAL DISORDER NOS 11/27/2016 MYNOR MAGALLANES DO Ot V72.84 EXAM PRE-OPERATIVE NOS 11/27/2016 MYNOR MAGALLANES DO Ot 789.00 ABDOMINAL PAIN, UNSPECIFIED SITE 11/27/2016 ELIZABETH LEYVA WATER PURIFICATION CHEMIST Ot N63 UNSPECIFIED LUMP IN BREAST 11/27/2016 [...] FOR SCREENING FOR OTHER BACTER 11/27/2016 CODY DIEZP Ot 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 11/27/2016 CODY DIEZ Ot E66.01 MORBID (SEVERE) OBESITY DUE TO EXCESS CA 11/27/2016 CODY DIEZP Ot E78.5 HYPERLIPIDEMIA, UNSPECIFIED 11/27/2016 CODY DIEZP Ot F31.9 BIPOLAR DISORDER, UNSPECIFIED 11/27/2016 CODY DIEZ THERAPEUTIC SPECIALIST Ot I10 ESSENTIAL (PRIMARY) HYPERTENSION 11/27/2016 CODY DEIZP Ot J44.9 CHRONIC OBSTRUCTIVE PULMONARY DISEASE, U 11/27/2016 CODY DIEZ THERAPEUTIC SPECIALIST Ot K21.9 GASTRO-ESOPHAGEAL REFLUX DISEASE WITHOUT 11/27/2016 CODY DIEZ THERAPEUTIC SPECIALIST Ot Z17.0 ESTROGEN RECEPTOR POSITIVE STATUS [ER+] 11/27/2016 CODY DIEZP Ot Z68.41 BODY MASS INDEX (BMI) 40.0-44.9, ADULT 11/27/2016 CODY DIEZ THERAPEUTIC SPECIALIST Ot Z79.899 OTHER SENIOR CARE (CURRENT) DRUG THERAPY 11/27/2016 CODY DIEZP Ot 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 11/27/2016 CODY DIEZ Ot 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 11/27/2016 CODY DIEZP Ot Z12.31 ENCNTR SCREEN MAMMOGRAM [...] 11/27/2016 ADY, BOBAN N Ot Z79.899 OTHER HR SHARED SERVICES CONSULTANT (CURRENT) DRUG THERAPY 12/02/2016 ADY, BOBAN N [...] 12/02/2016 ADY, BOBAN N Ot Z79.899 OTHER SENIOR CARE (CURRENT) DRUG THERAPY 01/01/2017 CHRIS WINTER APRN [...] OBESITY DUE TO EXCESS CA 01/01/2017 CODY DIEZP Ot E78.5 HYPERLIPIDEMIA, UNSPECIFIED 01/01/2017 CODY DIEZP Ot F31.9 BIPOLAR DISORDER, UNSPECIFIED 01/01/2017 CODY DIEZP Ot I10 ESSENTIAL (PRIMARY) HYPERTENSION 01/01/2017 CODY DIEZ Ot J44.9 CHRONIC OBSTRUCTIVE PULMONARY DISEASE, U 01/01/2017 CODY DIEZP Ot K21.9 GASTRO-ESOPHAGEAL REFLUX DISEASE WITHOUT 01/01/2017 CODY DIEZP Ot Z17.0 ESTROGEN RECEPTOR POSITIVE STATUS [ER+] 01/01/2017 OCDY DIEZ Ot Z68.41 BODY MASS INDEX (BMI) 40.0-44.9, ADULT 01/01/2017 CODY DIEZP Ot Z79.899 OTHER HR SHARED SERVICES CONSULTANT (CURRENT) DRUG THERAPY 01/01/2017 CODY DIEZ THERAPEUTIC SPECIALIST Ot 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 01/01/2017 CODY DIEZP Ot 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 01/01/2017 CODY DIEZP Ot Z12.31 ENCNTR SCREEN MAMMOGRAM FOR MALIGNANT NE 01/01/2017 CODY DIEZP Ot Z79.818 LNG TRM (CRNT) USE OF AGNT AFF ESTROG RE 01/01/2017 CODY DIEZP Ot Z90.722 ACQUIRED ABSENCE OF [...] ADULT 01/01/2017 XAVIER GARSIA Ot Z79.899 OTHER HR SHARED SERVICES CONSULTANT (CURRENT) DRUG THERAPY 01/27/2017 CHRIS WINTER APRN Ot 626.8 MENSTRUAL DISORDER NEC 01/27/2017 MYNOR MAGALLANES DO Ot 626.8 MENSTRUAL DISORDER [...] DIEZ Ot E78.5 HYPERLIPIDEMIA, UNSPECIFIED 01/27/2017 CODY DIEZ Ot F31.9 BIPOLAR DISORDER, UNSPECIFIED 01/27/2017 CODY DIEZ Ot I10 ESSENTIAL (PRIMARY) HYPERTENSION 01/27/2017 CODY DIEZP Ot J44.9 CHRONIC OBSTRUCTIVE PULMONARY DISEASE, U 01/27/2017 CODY DIEZP Ot K21.9 GASTRO-ESOPHAGEAL REFLUX DISEASE WITHOUT 01/27/2017 CODY DIEZP Ot Z17.0 ESTROGEN RECEPTOR POSITIVE STATUS [ER+] 01/27/2017 CODY DIEZP Ot Z68.41 BODY MASS INDEX (BMI) 40.0-44.9, ADULT 01/27/2017 CODY DIEZ Ot Z79.899 OTHER HR SHARED SERVICES CONSULTANT (CURRENT) DRUG THERAPY 01/27/2017 DIEZ, HILAH S THERAPEUTIC SPECIALIST Ot 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 01/27/2017 CODY DIEZ THERAPEUTIC SPECIALIST Ot 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 01/27/2017 CODY DIEZ THERAPEUTIC SPECIALIST Ot Z12.31 ENCNTR SCREEN MAMMOGRAM FOR MALIGNANT NE 01/27/2017 CODY DIEZ THERAPEUTIC SPECIALIST Ot Z79.818 LNG TRM (CRNT) USE OF AGNT AFF ESTROG RE 01/27/2017 CODY DIEZ THERAPEUTIC SPECIALIST Ot Z90.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, BILATERAL 01/27/2017 CHRIS WINTER WATER PURIFICATION CHEMIST Ot 626.8 MENSTRUAL DISORDER NEC 01/27/2017 MAGALLANES [...] ABDOMINAL PAIN, UNSPECIFIED SITE 01/27/2017 ELIZABETH LEYVA WATER PURIFICATION CHEMIST Ot N63 UNSPECIFIED LUMP IN BREAST 01/27/2017 BEN CASTRO, LIZZIE [place] Ot N32.81 OVERACTIVE BLADDER 01/27/2017 BEN CASTRO, LIZZIE [place] Ot N39.46 MIXED INCONTINENCE 01/27/2017 BEN CASTRO, LIZZIE [place] Ot Z01.818 ENCOUNTER FOR OTHER PREPROCEDURAL EXAMIN 01/27/2017 LIZZIE CONTRERAS MD Ot Z11.2 ENCOUNTER FOR SCREENING FOR OTHER BACTER 01/27/2017 SOFIA CASTRO, ANJUM Ferreira Ot C50.912 MALIGNANT NEOPLASM OF UNSPECIFIED SITE O 01/27/2017 Ot C50.912 MALIGNANT NEOPLASM OF UNSPECIFIED SITE O 01/27/2017 Ot Z01.818 ENCOUNTER FOR OTHER PREPROCEDURAL EXAMIN 01/27/2017 Ot Z11.2 ENCOUNTER FOR SCREENING FOR OTHER BACTER 01/27/2017 CODY DIEZ THERAPEUTIC SPECIALIST Ot 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 01/27/2017 DIEZCODY SharmaP Ot E66.01 MORBID (SEVERE) OBESITY DUE TO EXCESS CA 01/27/2017 DIEZCODYP Ot E78.5 HYPERLIPIDEMIA, UNSPECIFIED 01/27/2017 RG CODY MATTAP Ot F31.9 BIPOLAR DISORDER, UNSPECIFIED 01/27/2017 RG CODY Sharma THERAPEUTIC SPECIALIST Ot I10 ESSENTIAL (PRIMARY) HYPERTENSION 01/27/2017 RG CODY Sharma REX Ot J44.9 CHRONIC OBSTRUCTIVE PULMONARY DISEASE, U 01/27/2017 DIEZCODYP Ot K21.9 GASTRO-ESOPHAGEAL REFLUX DISEASE WITHOUT 01/27/2017 GR CODY MATTAP Ot Z17.0 ESTROGEN RECEPTOR POSITIVE STATUS [ER+] 01/27/2017 RG CODY MATTAP Ot Z68.41 BODY MASS INDEX (BMI) 40.0-44.9, ADULT 01/27/2017 DIEZCODYP Ot Z79.899 OTHER SENIOR CARE (CURRENT) DRUG THERAPY 01/27/2017 KAREN DIEZSARAH MATTAP Ot 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 01/27/2017 GR CODY MATTAP Ot 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 01/27/2017 RG CODY MATTAP Ot Z12.31 ENCNTR SCREEN MAMMOGRAM FOR MALIGNANT NE 01/27/2017 RG CODY MATTAP Ot Z79.818 LNG TRM (CRNT) USE OF AGNT AFF ESTROG RE 01/27/2017 RG CODY MATTAP Ot Z90.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, BILATERAL 02/11/2017 KEKE SELLERS DOA K Ot F31.9 BIPOLAR DISORDER, UNSPECIFIED 02/11/2017 KENDY SELLERS DO K Ot F41.9 ANXIETY DISORDER, UNSPECIFIED 02/11/2017 KENDY SELLERS DO K Ot F90.9 ATTENTION-DEFICIT HYPERACTIVITY DISORDER 02/11/2017 KENDY SELLERS DO K Ot G25.81 RESTLESS LEGS SYNDROME 02/11/2017 MARLO OLVERA KENDY K Ot I10 ESSENTIAL (PRIMARY) HYPERTENSION 02/11/2017 KENDY SELLERS DO K Ot J44.9 CHRONIC OBSTRUCTIVE PULMONARY DISEASE, U 02/11/2017 KENDY SELLERS DO K Ot K21.9 GASTRO-ESOPHAGEAL REFLUX DISEASE WITHOUT 02/11/2017 [...] OF CENTRAL PORTION OF 03/24/2017 XAVIER GARSIA Veena Ot 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 03/24/2017 XAVIER GARSIA Veena Ot E66.01 MORBID (SEVERE) OBESITY DUE TO EXCESS CA 03/24/2017 XAVIER GARSIA Veena Ot E78.5 HYPERLIPIDEMIA, UNSPECIFIED 03/24/2017 XAVIER GARSIA Veena Ot 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 03/24/2017 XAVIER GARSIA Veena Ot F31.9 BIPOLAR DISORDER, UNSPECIFIED 03/24/2017 XAVIER GARSIA Veena Ot I10 ESSENTIAL (PRIMARY) HYPERTENSION 03/24/2017 ADY CATSACHI Veena Ot J44.9 CHRONIC OBSTRUCTIVE PULMONARY DISEASE, U 03/24/2017 XAVIER GARSIA Veena Ot K21.9 GASTRO-ESOPHAGEAL REFLUX DISEASE WITHOUT 03/24/2017 XAVIER GARSIA Veena Ot Z12.31 ENCNTR SCREEN MAMMOGRAM FOR MALIGNANT NE 03/24/2017 XAVIER GARSIA Veena Ot Z68.41 BODY MASS INDEX (BMI) 40.0-44.9, ADULT 03/24/2017 XAVIER GARSIA Veena Ot Z79.818 LNG TRM (CRNT) USE OF AGNT AFF ESTROG RE 03/24/2017 XAVIER GARSIA Veena Ot Z79.899 OTHER SENIOR CARE (CURRENT) DRUG THERAPY 03/24/2017 XAVIER GARSIA Veena Ot Z90.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, BILATERAL 05/11/2017 XAVIER GARSIA Veena Ot 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 05/11/2017 XAVIER GARSIA Veena Ot 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 05/11/2017 XAVIER GARSIA Veena Ot E66.01 MORBID (SEVERE) OBESITY DUE TO EXCESS CA 05/11/2017 XAVIER GARSIA Veena Ot E78.5 HYPERLIPIDEMIA, UNSPECIFIED 05/11/2017 XAVIER GARSIA Veena Ot 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 05/11/2017 XAVIER GARSIA Veena Ot F31.9 BIPOLAR DISORDER, UNSPECIFIED 05/11/2017 ADY CATSACHI N Ot I10 ESSENTIAL (PRIMARY) HYPERTENSION 05/11/2017 ADY CATSACHI Veena Ot J44.9 CHRONIC OBSTRUCTIVE PULMONARY DISEASE, U 05/11/2017 XAVIER GARSIA Ot K21.9 GASTRO-ESOPHAGEAL REFLUX DISEASE WITHOUT 05/11/2017 XAVIER GARSIA Veena Ot Z12.31 ENCNTR SCREEN MAMMOGRAM FOR MALIGNANT NE 05/11/2017 XAVIER GARSIA Ot Z68.41 BODY MASS INDEX (BMI) 40.0-44.9, ADULT 05/11/2017 XAVIER GARSIA Ot Z79.818 LNG TRM (CRNT) USE OF AGNT AFF ESTROG RE 05/11/2017 XAVIER GARSIA N Ot Z79.899 OTHER SENIOR CARE (CURRENT) DRUG THERAPY 05/11/2017 XAVIER GARSIA N Ot Z90.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, BILATERAL 05/24/2017 XAVIER GARSIA Veena Ot 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 05/24/2017 XAVIER GARSIA Veena Ot 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 05/24/2017 XAVIER GARSIA Veena Ot E66.01 MORBID (SEVERE) OBESITY DUE TO EXCESS CA 05/24/2017 XAVIER GARSIA Veena Ot E78.5 HYPERLIPIDEMIA, UNSPECIFIED 05/24/2017 XAVIER GARSIA N Ot 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 05/24/2017 [...] INDEX (BMI) 40.0-44.9, ADULT 05/24/2017 XAVIER GARSIA Veena Ot Z79.818 LNG TRM (CRNT) USE OF AGNT AFF ESTROG RE 05/24/2017 XAVIER GARSIA Veena Ot Z79.899 OTHER SENIOR CARE (CURRENT) DRUG THERAPY 05/24/2017 XAVIER GARSIA Veena Ot Z90.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, BILATERAL 06/21/2017 XAVIER GARSIA Veena Ot 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 06/21/2017 XAVIER GARSIA Veena Ot 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 06/21/2017 XAVIER GARSIA Veena Ot E66.01 MORBID (SEVERE) OBESITY DUE TO EXCESS CA 06/21/2017 XAVIER GARSIA Veena Ot E78.5 HYPERLIPIDEMIA, UNSPECIFIED 06/21/2017 XAVIER GARSIA Veena Ot 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 06/21/2017 XAVIER GARSIA Veena Ot F31.9 BIPOLAR DISORDER, UNSPECIFIED 06/21/2017 ADY CATSACHI N Ot I10 ESSENTIAL (PRIMARY) HYPERTENSION 06/21/2017 ADY, XAVIER Curiel Ot J44.9 CHRONIC OBSTRUCTIVE [...] 06/21/2017 XAVIER GARSIA Veena Ot Z79.899 OTHER HR SHARED SERVICES CONSULTANT (CURRENT) DRUG THERAPY 06/21/2017 XAVIER GARSIA Veena Ot Z90.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, BILATERAL 06/22/2017 XAVIER GARSIA Veena Ot 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 06/22/2017 XAVIER GARSIA Veena Ot 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 06/22/2017 XAVIER GARSIA Veena Ot E66.01 MORBID (SEVERE) OBESITY DUE TO EXCESS CA 06/22/2017 ADY CATSACHI Veena Ot E78.5 HYPERLIPIDEMIA, UNSPECIFIED 06/22/2017 ADY CATSACHI N Ot 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 06/22/2017 XVAIER GARSIA Veena Ot F31.9 BIPOLAR DISORDER, UNSPECIFIED 06/22/2017 ADY CATSACHI N Ot I10 ESSENTIAL (PRIMARY) HYPERTENSION 06/22/2017 ADYXAVIER N Ot J44.9 CHRONIC OBSTRUCTIVE PULMONARY DISEASE, U 06/22/2017 XAVIER GARSIA Veena Ot K21.9 GASTRO-ESOPHAGEAL REFLUX DISEASE WITHOUT 06/22/2017 XAVIER GARSIA Veena Ot Z12.31 ENCNTR SCREEN MAMMOGRAM FOR MALIGNANT NE 06/22/2017 XAVIER GARSIA Veena Ot Z68.41 BODY MASS INDEX (BMI) 40.0-44.9, ADULT 06/22/2017 XAVIER GARSAI Veena Ot Z79.818 LNG TRM (CRNT) USE OF AGNT AFF ESTROG RE 06/22/2017 XAVIER GARSIA Veena Ot Z79.899 OTHER HR SHARED SERVICES CONSULTANT (CURRENT) DRUG THERAPY 06/22/2017 XAVIER GARSIA Veena Ot Z90.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, BILATERAL 06/23/2017 CODY DIEZ THERAPEUTIC SPECIALIST Ot 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 06/23/2017 CODY DIEZ THERAPEUTIC SPECIALIST Ot 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 06/23/2017 CODY DIEZ THERAPEUTIC SPECIALIST Ot Z12.31 ENCNTR SCREEN MAMMOGRAM FOR MALIGNANT NE 06/23/2017 CODY DIEZP Ot Z79.818 LNG TRM (CRNT) USE OF AGNT AFF ESTROG RE 06/23/2017 CODY DIEZ THERAPEUTIC SPECIALIST Ot Z90.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, BILATERAL 06/23/2017 XAVIER GARSIA Veena Ot 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 06/23/2017 ADY CATSACHI Veena Ot 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 06/23/2017 ADY, XAVIER Curiel Ot E66.01 MORBID (SEVERE) OBESITY DUE TO EXCESS CA 06/23/2017 ADYXAVIER Ot E78.5 HYPERLIPIDEMIA, UNSPECIFIED 06/23/2017 ADY, XAVIER Curiel Ot 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 06/23/2017 ADY, XAVIER Curiel Ot F31.9 BIPOLAR DISORDER, UNSPECIFIED 06/23/2017 ADYXAVIER Ot I10 ESSENTIAL (PRIMARY) HYPERTENSION 06/23/2017 ADY, XAVIER Curiel Ot J44.9 CHRONIC OBSTRUCTIVE PULMONARY DISEASE, U 06/23/2017 ADY, XAVIER Curiel Ot K21.9 GASTRO-ESOPHAGEAL REFLUX DISEASE WITHOUT 06/23/2017 XAVIER GARSIA Veena Ot Z12.31 ENCNTR SCREEN MAMMOGRAM FOR MALIGNANT NE 06/23/2017 XAVIER GARSIA Veena Ot Z68.41 BODY MASS INDEX (BMI) 40.0-44.9, ADULT 06/23/2017 XAVIER GARSIA Veena Ot Z79.818 LNG TRM (CRNT) USE OF AGNT AFF ESTROG RE 06/23/2017 XAVIER GARSIA Veena Ot Z79.899 OTHER HR SHARED SERVICES CONSULTANT (CURRENT) DRUG THERAPY 06/23/2017 XAVIER GARSIA Veena Ot Z90.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, BILATERAL 06/24/2017 XAVIER GARSIA Veena Ot 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 06/24/2017 ADYXAVIER Ot 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 06/24/2017 XAVIER GARSIA Veena Ot E66.01 MORBID (SEVERE) OBESITY DUE TO EXCESS CA 06/24/2017 ADYXAVIER Ot E78.5 HYPERLIPIDEMIA, UNSPECIFIED 06/24/2017 XAVIER GARSIA Veena Ot 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 06/24/2017 XAVIER GARSIA Veena Ot F31.9 BIPOLAR DISORDER, UNSPECIFIED 06/24/2017 XAVIER GARSIA Veena Ot I10 ESSENTIAL (PRIMARY) HYPERTENSION 06/24/2017 XAVIER GARSIA Veena Ot J44.9 CHRONIC OBSTRUCTIVE [...] 06/24/2017 XAVIER GARSIA Veena Ot Z79.899 OTHER HR SHARED SERVICES CONSULTANT (CURRENT) DRUG THERAPY 06/24/2017 XAVIER GARSIA Veena Ot Z90.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, BILATERAL 07/06/2017 ALONDRA ACOSTA DO Ot K80.50 CALCULUS OF BILE DUCT W/O CHOLANGITIS OR 08/07/2017 CHRIS WINTER WATER PURIFICATION CHEMIST Ot 626.8 MENSTRUAL DISORDER NEC 08/07/2017 MAGALLANESMYNOR Quintero DO C Ot 626.8 MENSTRUAL DISORDER NEC 08/07/2017 MYNOR MAGALLANES DO C Ot V72.84 EXAM PRE-OPERATIVE NOS 08/07/2017 SONA DO, MYNOR C Ot V74.8 SCREEN-BACTERIAL DIS NEC 08/07/2017 SONA DOMYNOR C Ot 626.9 MENSTRUAL DISORDER NOS 08/07/2017 SONA DOMYNOR C Ot V72.84 EXAM PRE-OPERATIVE NOS 08/07/2017 MYNOR MAGALLANES DO C Ot 789.00 ABDOMINAL PAIN, UNSPECIFIED SITE 08/07/2017 ELIZABETH LEYVA WATER PURIFICATION CHEMIST Ot N63 UNSPECIFIED LUMP IN BREAST 08/07/2017 BEN CASTRO, LIZZIE [place] Ot N32.81 OVERACTIVE BLADDER 08/07/2017 BEN CASTRO, LIZZIE [place] Ot N39.46 MIXED INCONTINENCE 08/07/2017 BEN CASTRO, LIZZIE [place] Ot Z01.818 ENCOUNTER FOR OTHER PREPROCEDURAL EXAMIN 08/07/2017 BEN CASTRO, LIZZIE [place] Ot Z11.2 ENCOUNTER FOR SCREENING FOR OTHER BACTER 08/07/2017 SOFIA CASTRO, ANJUM Ferreira Ot C50.912 MALIGNANT NEOPLASM OF UNSPECIFIED SITE O 08/07/2017 Ot C50.912 MALIGNANT NEOPLASM OF UNSPECIFIED SITE O 08/07/2017 Ot Z01.818 ENCOUNTER FOR OTHER PREPROCEDURAL EXAMIN 08/07/2017 Ot Z11.2 ENCOUNTER FOR SCREENING FOR OTHER BACTER 08/07/2017 CODY DIEZP Ot 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 08/07/2017 CODY DIEZP Ot E66.01 MORBID (SEVERE) OBESITY DUE TO EXCESS CA 08/07/2017 CODY DIEZP Ot E78.5 HYPERLIPIDEMIA, UNSPECIFIED 08/07/2017 CODY DIEZP Ot F31.9 BIPOLAR DISORDER, UNSPECIFIED 08/07/2017 CODY DIEZP Ot I10 ESSENTIAL (PRIMARY) HYPERTENSION 08/07/2017 CODY DIEZP Ot J44.9 CHRONIC OBSTRUCTIVE PULMONARY DISEASE, U 08/07/2017 CODY DIEZP Ot K21.9 GASTRO-ESOPHAGEAL REFLUX DISEASE WITHOUT 08/07/2017 CODY DIEZP Ot Z17.0 ESTROGEN RECEPTOR POSITIVE STATUS [ER+] 08/07/2017 CODY DIEZP Ot Z68.41 BODY MASS INDEX (BMI) 40.0-44.9, ADULT 08/07/2017 CODY DIEZP Ot Z79.899 OTHER HR SHARED SERVICES CONSULTANT (CURRENT) DRUG THERAPY 08/07/2017 CODY DIEZP Ot 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 08/07/2017 CODY DIEZP Ot 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 08/07/2017 CODY DIEZ Ot Z12.31 ENCNTR SCREEN MAMMOGRAM FOR MALIGNANT NE 08/07/2017 CODY DIEZP Ot Z79.818 LNG TRM (CRNT) USE OF AGNT AFF ESTROG RE 08/07/2017 CODY DIEZP Ot Z90.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, BILATERAL 08/07/2017 XAVIER GARSIA Ot 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 08/07/2017 XAVIER GARSIA Ot 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 08/07/2017 XAVIER GARSIA Ot E66.01 MORBID (SEVERE) OBESITY DUE TO EXCESS CA 08/07/2017 XAVIER GARSIA Ot E78.5 HYPERLIPIDEMIA, UNSPECIFIED 08/07/2017 XAVIER GARSIA Ot 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 08/07/2017 XAVIER GARSIA Ot F31.9 BIPOLAR DISORDER, UNSPECIFIED 08/07/2017 XAVIER GARSIA Ot I10 ESSENTIAL (PRIMARY) HYPERTENSION 08/07/2017 XAVIER GARSIA Ot J44.9 CHRONIC OBSTRUCTIVE PULMONARY DISEASE, U 08/07/2017 XAVIER GARSIA Ot K21.9 GASTRO-ESOPHAGEAL REFLUX DISEASE WITHOUT 08/07/2017 XAVIER GARSIA Ot Z12.31 ENCNTR SCREEN MAMMOGRAM FOR MALIGNANT NE 08/07/2017 XAVIER GARSIA Ot Z68.41 BODY MASS INDEX (BMI) 40.0-44.9, ADULT 08/07/2017 XAVIER GARSIA Ot Z79.818 LNG TRM (CRNT) USE OF AGNT AFF ESTROG RE 08/07/2017 ADYCAT ALCOCERSACHI Curiel Ot Z79.899 OTHER SENIOR CARE (CURRENT) DRUG THERAPY 08/07/2017 XAVIER GARSIA Veena Ot Z90.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, BILATERAL 08/07/2017 ALONDRA ACOSTA DO Ot K80.50 CALCULUS OF BILE DUCT W/O CHOLANGITIS OR 08/08/2017 YANIQUE CASTRO, MAEVE Gamez Ot F31.9 BIPOLAR DISORDER, UNSPECIFIED 08/08/2017 MAEVE CHANEL MD Ot F41.9 ANXIETY DISORDER, UNSPECIFIED 08/08/2017 MAEVE CHANEL MD Ot F90.9 ATTENTION-DEFICIT HYPERACTIVITY DISORDER 08/08/2017 MAEVE CHANEL MD Ot G25.81 RESTLESS LEGS SYNDROME 08/08/2017 MAEVE CHANEL MD Ot G47.9 SLEEP DISORDER, UNSPECIFIED 08/08/2017 MAEVE CHANEL MD Ot I10 ESSENTIAL (PRIMARY) HYPERTENSION 08/08/2017 MAEVE CHANEL MD Ot J44.9 CHRONIC OBSTRUCTIVE PULMONARY DISEASE, U 08/08/2017 MAEVE CHANEL MD Ot K21.9 GASTRO-ESOPHAGEAL REFLUX DISEASE WITHOUT 08/08/2017 MAEVE CHANEL MD Ot M62.82 RHABDOMYOLYSIS 08/08/2017 MAEVE CHANEL MD Ot N39.0 URINARY TRACT INFECTION, SITE NOT SPECIF 08/08/2017 MAEVE CHANEL MD Ot R07.89 OTHER CHEST PAIN 08/08/2017 MAEVE CHANEL MD Ot R11.10 VOMITING, UNSPECIFIED 08/08/2017 MAEVE CHANEL MD Ot R11.2 NAUSEA WITH VOMITING, UNSPECIFIED 08/08/2017 MAEVE CHANEL MD Ot Z85.3 PERSONAL HISTORY OF MALIGNANT NEOPLASM O 08/08/2017 MAEVE CHANEL MD Ot Z87.59 PERSONAL HISTORY OF COMP OF PREG, CHLDBR 08/08/2017 MAEVE CHANEL MD Ot Z87.891 PERSONAL HISTORY OF NICOTINE DEPENDENCE 08/08/2017 YANIQUE CASTRO, MAEVE Gamez Ot Z88.8 ALLERGY STATUS TO [facility] DRUG/MEDS/BIOL SUB 08/08/2017 MAEVE CHANEL MD Ot Z90.49 ACQUIRED ABSENCE OF OTHER SPECIFIED PART 08/08/2017 MAEVE CAHNEL MD, Ot Z90.710 ACQUIRED ABSENCE OF BOTH CERVIX AND UTER 08/08/2017 MAEVE CHANEL MD, Ot Z91.14 PATIENT'S OTHER NONCOMPLIANCE WITH MEDIC 08/08/2017 MAEVE CHANEL MD, Ot Z91.5 PERSONAL HISTORY OF SELF-HARM 08/08/2017 MAEVE CHANEL MD, Ot Z98.51 TUBAL LIGATION STATUS 08/09/2017 MAEVE CHANEL MD, Ot F31.9 BIPOLAR DISORDER, UNSPECIFIED 08/09/2017 MAEVE CHANEL MD, Ot F41.9 ANXIETY DISORDER, UNSPECIFIED 08/09/2017 MAEVE CHANEL MD, Ot F90.9 ATTENTION-DEFICIT HYPERACTIVITY DISORDER 08/09/2017 MAEVE CHANEL MD Ot G25.81 RESTLESS LEGS SYNDROME 08/09/2017 MAEVE CHANEL MD, Ot G47.9 SLEEP DISORDER, UNSPECIFIED 08/09/2017 MAEVE CHANEL MD, Ot I10 ESSENTIAL (PRIMARY) HYPERTENSION 08/09/2017 MAEVE CHANEL MD, Ot J44.9 CHRONIC OBSTRUCTIVE PULMONARY DISEASE, U 08/09/2017 MAEVE CHANEL MD Ot K21.9 GASTRO-ESOPHAGEAL REFLUX DISEASE WITHOUT 08/09/2017 MAEVE CHANEL MD Ot M62.82 RHABDOMYOLYSIS 08/09/2017 MAEVE CHANEL MD Ot N39.0 URINARY TRACT INFECTION, SITE NOT SPECIF 08/09/2017 MAEVE CHANEL MD Ot R07.89 OTHER CHEST PAIN 08/09/2017 MAEVE CHANEL MD Ot R11.10 VOMITING, UNSPECIFIED 08/09/2017 MAEVE CHANEL MD Ot R11.2 NAUSEA WITH VOMITING, UNSPECIFIED 08/09/2017 MAEVE CHANEL MD Ot Z85.3 PERSONAL HISTORY OF MALIGNANT NEOPLASM O 08/09/2017 MAEVE CHANEL MD Ot Z87.59 PERSONAL HISTORY OF COMP OF PREG, CHLDBR 08/09/2017 MAEVE CHANEL MD, Ot Z87.891 PERSONAL HISTORY OF NICOTINE DEPENDENCE 08/09/2017 MAEVE CHANEL MD, Ot Z88.8 ALLERGY STATUS TO [facility] DRUG/MEDS/BIOL SUB 08/09/2017 MAEVE CHANEL MD, Ot Z90.49 ACQUIRED ABSENCE OF OTHER SPECIFIED PART 08/09/2017 MAEVE CHANEL MD, Ot Z90.710 ACQUIRED ABSENCE OF BOTH CERVIX AND UTER 08/09/2017 MAEVE CHANEL MD, Ot Z91.14 PATIENT'S OTHER NONCOMPLIANCE WITH MEDIC 08/09/2017 MAEVE CHANEL MD, Ot Z91.5 PERSONAL HISTORY OF SELF-HARM 08/09/2017 MAEVE CHANEL MD, Ot Z98.51 TUBAL LIGATION STATUS 08/09/2017 ALONDRA ACOSTA DO Ot K80.50 CALCULUS OF BILE DUCT W/O CHOLANGITIS OR 08/11/2017 XAVIER GARSIA Ot 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 08/11/2017 XAVIER GARSIA Ot 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 08/11/2017 XAVIER GARSIA Ot E66.01 MORBID (SEVERE) OBESITY DUE TO EXCESS CA 08/11/2017 XAVIER GARSIA Ot E78.5 HYPERLIPIDEMIA, UNSPECIFIED 08/11/2017 XAVIER GARSIA Ot 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 08/11/2017 XAVIER GARSIA Ot F31.9 BIPOLAR DISORDER, UNSPECIFIED 08/11/2017 XAVIER GARSIA Ot I10 ESSENTIAL (PRIMARY) HYPERTENSION 08/11/2017 XAVIER GARSIA Ot J44.9 CHRONIC OBSTRUCTIVE PULMONARY DISEASE, U 08/11/2017 XAVIER GARSIA Ot K21.9 GASTRO-ESOPHAGEAL REFLUX DISEASE WITHOUT 08/11/2017 XAVIER GARSIA Ot Z12.31 ENCNTR SCREEN MAMMOGRAM FOR MALIGNANT NE 08/11/2017 XAVIER GARSIA Ot Z68.41 BODY MASS INDEX (BMI) 40.0-44.9, ADULT 08/11/2017 XAVIER GARSIA Ot Z79.818 LNG TRM (CRNT) USE OF AGNT AFF ESTROG RE 08/11/2017 XAVIER GARSIA Ot Z79.899 OTHER SENIOR CARE (CURRENT) DRUG THERAPY 08/11/2017 XAVIER GARSIA Ot Z90.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, BILATERAL 08/19/2017 XAVIER GARSIA Veena Ot 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 08/19/2017 XAVEIR GARSIA Veena Ot 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 08/19/2017 XAVIER GARSIA Veena Ot E66.01 MORBID (SEVERE) OBESITY DUE TO EXCESS CA 08/19/2017 XAVIER GARSIA Veena Ot E78.5 HYPERLIPIDEMIA, UNSPECIFIED 08/19/2017 XAVIER GARSIA Veena Ot 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 08/19/2017 XAVIER GARSIA Veena Ot F31.9 BIPOLAR DISORDER, UNSPECIFIED 08/19/2017 XAVIER GARSIA Veena Ot I10 ESSENTIAL (PRIMARY) HYPERTENSION 08/19/2017 XAVIER GARSIA Veena Ot J44.9 CHRONIC OBSTRUCTIVE PULMONARY DISEASE, U 08/19/2017 XAVIER GARSIA Veena Ot K21.9 GASTRO-ESOPHAGEAL REFLUX DISEASE WITHOUT 08/19/2017 XAVIER GARSIA Veena Ot Z12.31 ENCNTR SCREEN MAMMOGRAM FOR MALIGNANT NE 08/19/2017 XAVIER GARSIA Ot Z68.41 BODY MASS INDEX (BMI) 40.0-44.9, ADULT 08/19/2017 XAVIER GARSIA Ot Z79.818 LNG TRM (CRNT) USE OF AGNT AFF ESTROG RE 08/19/2017 XAVIER GARSIA Ot Z79.899 OTHER SENIOR CARE (CURRENT) DRUG THERAPY 08/19/2017 XAVIER GARSIA Veena Ot Z90.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, BILATERAL 08/23/2017 CHRIS WINTER APRN Ot 626.8 MENSTRUAL DISORDER NEC 08/23/2017 MYNOR MAGALLANES DO Ot 626.8 MENSTRUAL DISORDER NEC 08/23/2017 MYNOR MAGALLANES DO Ot V72.84 EXAM PRE-OPERATIVE NOS 08/23/2017 MYNOR MAGALLANES DO Ot V74.8 SCREEN-BACTERIAL DIS NEC 08/23/2017 MYNOR MAGALLANES DO Ot 626.9 MENSTRUAL DISORDER NOS 08/23/2017 MYNOR MAGALLANES DO Ot V72.84 EXAM PRE-OPERATIVE NOS 08/23/2017 MYNOR MAGALLANES DO Ot 789.00 ABDOMINAL PAIN, UNSPECIFIED SITE 08/23/2017 ELIZABETH LEYVA APRN Ot N63 UNSPECIFIED LUMP IN BREAST 08/23/2017 BEN CASTRO, LIZZIE [place] Ot N32.81 OVERACTIVE BLADDER 08/23/2017 BEN CASTRO, LIZZIE rFance Ot N39.46 MIXED INCONTINENCE 08/23/2017 BEN CASTRO, LIZZIE [place] Ot Z01.818 ENCOUNTER FOR OTHER PREPROCEDURAL EXAMIN 08/23/2017 BEN CASTRO, LIZZIE [place] Ot Z11.2 ENCOUNTER FOR SCREENING FOR OTHER BACTER 08/23/2017 SOFIA CASTRO, ANJUM Hanna Ot C50.912 MALIGNANT NEOPLASM OF UNSPECIFIED SITE O 08/23/2017 Ot C50.912 MALIGNANT NEOPLASM OF UNSPECIFIED SITE O 08/23/2017 Ot Z01.818 ENCOUNTER FOR OTHER PREPROCEDURAL EXAMIN 08/23/2017 Ot Z11.2 ENCOUNTER FOR SCREENING FOR OTHER BACTER 08/23/2017 CODY DIEZ Ot 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 08/23/2017 CODY DIEZ Ot E66.01 MORBID (SEVERE) OBESITY DUE TO EXCESS CA 08/23/2017 CODY DIEZP Ot E78.5 HYPERLIPIDEMIA, UNSPECIFIED 08/23/2017 CODY DIEZP Ot F31.9 BIPOLAR DISORDER, UNSPECIFIED 08/23/2017 CODY DIEZP Ot I10 ESSENTIAL (PRIMARY) HYPERTENSION 08/23/2017 CODY DIEZP Ot J44.9 CHRONIC OBSTRUCTIVE PULMONARY DISEASE, U 08/23/2017 CODY DIEZ Ot K21.9 GASTRO-ESOPHAGEAL REFLUX DISEASE WITHOUT 08/23/2017 CODY DIEZP Ot Z17.0 ESTROGEN RECEPTOR POSITIVE STATUS [ER+] 08/23/2017 CODY DIEZ Ot Z68.41 BODY MASS INDEX (BMI) 40.0-44.9, ADULT 08/23/2017 CODY DIEZ THERAPEUTIC SPECIALIST Ot Z79.899 OTHER HR SHARED SERVICES CONSULTANT (CURRENT) DRUG THERAPY 08/23/2017 CODY DIEZP Ot 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 08/23/2017 CODY DIEZ THERAPEUTIC SPECIALIST Ot 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 08/23/2017 CODY DIEZ THERAPEUTIC SPECIALIST Ot Z12.31 ENCNTR SCREEN MAMMOGRAM FOR MALIGNANT NE 08/23/2017 CODY DIEZP Ot Z79.818 LNG TRM (CRNT) USE OF AGNT AFF ESTROG RE 08/23/2017 CODY DIEZP Ot Z90.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, BILATERAL 08/23/2017 XAVIER GARSIA N Ot 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 08/23/2017 XAVIER GARSIA Veena Ot 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 08/23/2017 XAVIER GARSIA Veena Ot E66.01 MORBID (SEVERE) OBESITY DUE TO EXCESS CA 08/23/2017 XAVIER GARSIA N Ot E78.5 HYPERLIPIDEMIA, UNSPECIFIED 08/23/2017 XAVIER GARSIA N Ot 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 08/23/2017 XAVIER GARSIA Ot F31.9 BIPOLAR DISORDER, UNSPECIFIED 08/23/2017 XAVIER GARSIA N Ot I10 ESSENTIAL (PRIMARY) HYPERTENSION 08/23/2017 XAVIER GARSIA N Ot J44.9 CHRONIC OBSTRUCTIVE PULMONARY DISEASE, U 08/23/2017 XAVIER GARSIA Veena Ot K21.9 GASTRO-ESOPHAGEAL REFLUX DISEASE WITHOUT 08/23/2017 XAVIER GARSIA N Ot Z12.31 ENCNTR SCREEN MAMMOGRAM FOR MALIGNANT NE 08/23/2017 XAVIER GARSIA N Ot Z68.41 BODY MASS INDEX (BMI) 40.0-44.9, ADULT 08/23/2017 XAVIER GARSIA N Ot Z79.818 LNG TRM (CRNT) USE OF AGNT AFF ESTROG RE 08/23/2017 XAVIER GARSIA N Ot Z79.899 OTHER HR SHARED SERVICES CONSULTANT (CURRENT) DRUG THERAPY 08/23/2017 XAVIER GARSIA N Ot Z90.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, BILATERAL 08/23/2017 ALONDRA ACOSTA DO Ot K80.50 CALCULUS OF BILE DUCT W/O CHOLANGITIS OR 08/23/2017 MOY, CHRIS A WATER PURIFICATION CHEMIST Ot 626.8 MENSTRUAL DISORDER NEC 08/23/2017 MAGALLANESMYNOR Quintero DO C Ot 626.8 MENSTRUAL DISORDER NEC 08/23/2017 MYNOR MAGALLANES DO Ot V72.84 EXAM PRE-OPERATIVE NOS 08/23/2017 MAGALLANES DO, MYNOR C Ot V74.8 SCREEN-BACTERIAL DIS NEC 08/23/2017 MAGALLANES DOMYNOR C Ot 626.9 MENSTRUAL DISORDER NOS 08/23/2017 SONA DOMYNOR C Ot V72.84 EXAM PRE-OPERATIVE NOS 08/23/2017 MYNOR MAGALLANES DO Ot 789.00 ABDOMINAL PAIN, UNSPECIFIED SITE 08/23/2017 ELIZABETH LEYVA WATER PURIFICATION CHEMIST Ot N63 UNSPECIFIED LUMP IN BREAST 08/23/2017 BEN CASTRO, LIZZIE [place] Ot N32.81 OVERACTIVE BLADDER 08/23/2017 LIZZIE CONTRERAS MD Ot N39.46 MIXED INCONTINENCE 08/23/2017 LIZZIE CONTRERAS MD Ot Z01.818 ENCOUNTER FOR OTHER PREPROCEDURAL EXAMIN 08/23/2017 LIZZIE CONTRERAS MD Ot Z11.2 ENCOUNTER FOR SCREENING FOR OTHER BACTER 08/23/2017 SOFIA CASTRO, ANJUM Ferreira Ot C50.912 MALIGNANT NEOPLASM OF UNSPECIFIED SITE O 08/23/2017 Ot C50.912 MALIGNANT NEOPLASM OF UNSPECIFIED SITE O 08/23/2017 Ot Z01.818 ENCOUNTER FOR OTHER PREPROCEDURAL EXAMIN 08/23/2017 Ot Z11.2 ENCOUNTER FOR SCREENING FOR OTHER BACTER 08/23/2017 CODY DIEZ Ot 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 08/23/2017 CODY DIEZ Ot E66.01 MORBID (SEVERE) OBESITY DUE TO EXCESS CA 08/23/2017 CODY DIEZP Ot E78.5 HYPERLIPIDEMIA, UNSPECIFIED 08/23/2017 CODY DIEZP Ot F31.9 BIPOLAR DISORDER, UNSPECIFIED 08/23/2017 CODY DIEZP Ot I10 ESSENTIAL (PRIMARY) HYPERTENSION 08/23/2017 CODY DIEZ THERAPEUTIC SPECIALIST Ot J44.9 CHRONIC OBSTRUCTIVE PULMONARY DISEASE, U 08/23/2017 CODY DIEZ Ot K21.9 GASTRO-ESOPHAGEAL REFLUX DISEASE WITHOUT 08/23/2017 CODY DIEZ Ot Z17.0 ESTROGEN RECEPTOR POSITIVE STATUS [ER+] 08/23/2017 CODY DIEZP Ot Z68.41 BODY MASS INDEX (BMI) 40.0-44.9, ADULT 08/23/2017 CODY DIEZP Ot Z79.899 OTHER SENIOR CARE (CURRENT) DRUG THERAPY 08/23/2017 CODY DIEZ Ot 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 08/23/2017 CODY DIEZ Ot 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 08/23/2017 CODY DIEZ Ot Z12.31 ENCNTR SCREEN MAMMOGRAM FOR MALIGNANT NE 08/23/2017 CODY DIEZ Ot Z79.818 LNG TRM (CRNT) USE OF AGNT AFF ESTROG RE 08/23/2017 CODY DIEZ Ot Z90.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, BILATERAL 08/23/2017 ADY, XAVIER N Ot 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 08/23/2017 XAVIER GARSIA Ot 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 08/23/2017 ADY XAVIER Curiel Ot E66.01 MORBID (SEVERE) OBESITY DUE TO EXCESS CA 08/23/2017 XAVIER GARSIA Ot E78.5 HYPERLIPIDEMIA, UNSPECIFIED 08/23/2017 XAVIER GARSIA Ot 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 08/23/2017 XAVIER GARSIA Ot F31.9 BIPOLAR DISORDER, UNSPECIFIED 08/23/2017 XAVIER GARSIA Ot I10 ESSENTIAL (PRIMARY) HYPERTENSION 08/23/2017 XAVIER GARSIA Ot J44.9 CHRONIC OBSTRUCTIVE PULMONARY DISEASE, U 08/23/2017 XAVIER GARSIA N Ot K21.9 GASTRO-ESOPHAGEAL REFLUX DISEASE WITHOUT 08/23/2017 XAVIER GARSIA N Ot Z12.31 ENCNTR SCREEN MAMMOGRAM FOR MALIGNANT NE 08/23/2017 XAVIER GARSIA Ot Z68.41 BODY MASS INDEX (BMI) 40.0-44.9, ADULT 08/23/2017 XAVIER GARSIA Ot Z79.818 LNG TRM (CRNT) USE OF AGNT AFF ESTROG RE 08/23/2017 XAVIER GARSIA Ot Z79.899 OTHER SENIOR CARE (CURRENT) DRUG THERAPY 08/23/2017 XAVIER GARSIA Ot Z90.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, BILATERAL 08/23/2017 ALONDRA ACOSTA DO Ot K80.50 CALCULUS OF BILE DUCT W/O CHOLANGITIS OR 09/21/2017 XAVIER GARSIA Veena Ot 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 09/21/2017 XAVIER GARSIA Veena Ot 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 09/21/2017 XAVIER GARSIA Veena Ot E66.01 MORBID (SEVERE) OBESITY DUE TO EXCESS CA 09/21/2017 XAVIER GARSIA Veena Ot E78.5 HYPERLIPIDEMIA, UNSPECIFIED 09/21/2017 XAVIER GARSIA Veena Ot 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 09/21/2017 XAVIER GARSIA Ot F31.9 BIPOLAR DISORDER, UNSPECIFIED 09/21/2017 XAVIER GARSIA N Ot I10 ESSENTIAL (PRIMARY) HYPERTENSION 09/21/2017 XAVIER GARSIA Veena Ot J44.9 CHRONIC OBSTRUCTIVE PULMONARY DISEASE, U 09/21/2017 XAVIER GARSIA Veena Ot K21.9 GASTRO-ESOPHAGEAL REFLUX DISEASE WITHOUT 09/21/2017 XAVIER GARSIA Ot Z12.31 ENCNTR SCREEN MAMMOGRAM FOR MALIGNANT NE 09/21/2017 XAVIER GARSIA Ot Z68.41 BODY MASS INDEX (BMI) 40.0-44.9, ADULT 09/21/2017 XAVIER GARSIA Ot Z79.818 LNG TRM (CRNT) USE OF AGNT AFF ESTROG RE 09/21/2017 XAVIER GARSIA Veena Ot Z79.899 OTHER HR SHARED SERVICES CONSULTANT (CURRENT) DRUG THERAPY 09/21/2017 XAVIER GARSIA Veena Ot Z90.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, BILATERAL 09/22/2017 XAVIER GARSIA N Ot 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 09/22/2017 XAVIER GARSIA Veena Ot 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 09/22/2017 XAVIER GARSIA Ot E66.01 MORBID (SEVERE) OBESITY DUE TO EXCESS CA 09/22/2017 XAVIER GARSIA Veena Ot E78.5 HYPERLIPIDEMIA, UNSPECIFIED 09/22/2017 XAVIER GARSIA N Ot 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 09/22/2017 XAVIER GARSIA N Ot F31.9 BIPOLAR DISORDER, UNSPECIFIED 09/22/2017 XAVIER GARSIA N Ot I10 ESSENTIAL (PRIMARY) HYPERTENSION 09/22/2017 XAVIER GARSIA N Ot J44.9 CHRONIC OBSTRUCTIVE PULMONARY DISEASE, U 09/22/2017 XAVIER GARSIA N Ot K21.9 GASTRO-ESOPHAGEAL REFLUX DISEASE WITHOUT 09/22/2017 XAVIER GARSIA N Ot Z12.31 ENCNTR SCREEN MAMMOGRAM FOR MALIGNANT NE 09/22/2017 XAVIER GARSIA N Ot Z68.41 BODY MASS INDEX (BMI) 40.0-44.9, ADULT 09/22/2017 XAVIER GARSIA Veena Ot Z79.818 LNG TRM (CRNT) USE OF AGNT AFF ESTROG RE 09/22/2017 XAVIER GARSIA N Ot Z79.899 OTHER HR SHARED SERVICES CONSULTANT (CURRENT) DRUG THERAPY 09/22/2017 XAVIER GARSIA N Ot Z90.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, BILATERAL 09/28/2017 XAVIER GARSIA N Ot 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 09/28/2017 XAVIER GARSIA Veena Ot 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 09/28/2017 XAVIER GARSIA Veena Ot E66.01 MORBID (SEVERE) OBESITY DUE TO EXCESS CA 09/28/2017 XAVIER GARSIA N Ot E78.5 HYPERLIPIDEMIA, UNSPECIFIED 09/28/2017 XAVIER GARSIA N Ot 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 09/28/2017 XAVIER GARSIA Veena Ot F31.9 BIPOLAR DISORDER, UNSPECIFIED 09/28/2017 XAVIER GARSIA N Ot I10 ESSENTIAL (PRIMARY) HYPERTENSION 09/28/2017 XAVIER GARSIA N Ot J44.9 CHRONIC OBSTRUCTIVE PULMONARY DISEASE, U 09/28/2017 XAVIER GARSIA N Ot K21.9 GASTRO-ESOPHAGEAL REFLUX DISEASE WITHOUT 09/28/2017 XAVIER GARSIA Ot Z12.31 ENCNTR SCREEN MAMMOGRAM FOR MALIGNANT NE 09/28/2017 XAVIER GARSIA Ot Z68.41 BODY MASS INDEX (BMI) 40.0-44.9, ADULT 09/28/2017 XAVIER GARSIA Ot Z79.818 LNG TRM (CRNT) USE OF AGNT AFF ESTROG RE 09/28/2017 XAVIER GARSIA Ot Z79.899 OTHER HR SHARED SERVICES CONSULTANT (CURRENT) DRUG THERAPY 09/28/2017 XAVIER GARSIA Ot Z90.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, BILATERAL 10/06/2017 MAK APARICIO MD N39.0 Urinary tract infection, site not specified 10/06/2017 MAK APARICIO MD R11.0 Nausea 10/06/2017 MAK APARICIO MD Z85.3 Personal history of malignant neoplasm of breast 10/06/2017 MAK APARICIO MD Z87.440 Personal history of urinary (tract) infections 10/06/2017 MAK APARICIO MD Z90.13 Acquired absence of bilateral breasts and nipples 10/13/2017 CHRIS WINTER WATER PURIFICATION CHEMIST Ot 626.8 MENSTRUAL DISORDER NEC 10/13/2017 MAGALLANES DO MYNOR C Ot 626.8 MENSTRUAL DISORDER NEC 10/13/2017 SONA OLVERA MYNOR C Ot V72.84 EXAM PRE-OPERATIVE NOS 10/13/2017 MAGALLANESLeon OLVERA MYNOR C Ot V74.8 SCREEN-BACTERIAL DIS NEC 10/13/2017 SONA OLVERA MYNOR C Ot 626.9 MENSTRUAL DISORDER NOS 10/13/2017 MAGALLANESLeon OLVERA MYNOR C Ot V72.84 EXAM PRE-OPERATIVE NOS 10/13/2017 SONA OLVERA MYNOR C Ot 789.00 ABDOMINAL PAIN, UNSPECIFIED SITE 10/13/2017 ELIZABETH LEYVA WATER PURIFICATION CHEMIST Ot N63 UNSPECIFIED LUMP IN BREAST 10/13/2017 LIZZIE CONTRERAS MD Ot N32.81 OVERACTIVE BLADDER 10/13/2017 LIZZIE CONTRERAS MD, Ot N39.46 MIXED INCONTINENCE 10/13/2017 LIZZIE CONTRERAS MD, Ot Z01.818 ENCOUNTER FOR OTHER PREPROCEDURAL EXAMIN 10/13/2017 LIZZIE CONTRERAS MD Ot Z11.2 ENCOUNTER FOR SCREENING FOR OTHER BACTER 10/13/2017 SOFIA CASTRO, ANJUM Ferreira Ot C50.912 MALIGNANT NEOPLASM OF UNSPECIFIED SITE O 10/13/2017 Ot C50.912 MALIGNANT NEOPLASM OF UNSPECIFIED SITE O 10/13/2017 Ot Z01.818 ENCOUNTER FOR OTHER PREPROCEDURAL EXAMIN 10/13/2017 Ot Z11.2 ENCOUNTER FOR SCREENING FOR OTHER BACTER 10/13/2017 CODY DIEZ Ot 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 10/13/2017 CODY DIEZP Ot E66.01 MORBID (SEVERE) OBESITY DUE TO EXCESS CA 10/13/2017 CODY DIEZ Ot E78.5 HYPERLIPIDEMIA, UNSPECIFIED 10/13/2017 CODY DIEZ Ot F31.9 BIPOLAR DISORDER, UNSPECIFIED 10/13/2017 CODY DIEZ Ot I10 ESSENTIAL (PRIMARY) HYPERTENSION 10/13/2017 CODY DIEZ Ot J44.9 CHRONIC OBSTRUCTIVE PULMONARY DISEASE, U 10/13/2017 CODY DIEZP Ot K21.9 GASTRO-ESOPHAGEAL REFLUX DISEASE WITHOUT 10/13/2017 CODY DIEZ THERAPEUTIC SPECIALIST Ot Z17.0 ESTROGEN RECEPTOR POSITIVE STATUS [ER+] 10/13/2017 CODY DIEZ Ot Z68.41 BODY MASS INDEX (BMI) 40.0-44.9, ADULT 10/13/2017 CODY DIEZ THERAPEUTIC SPECIALIST Ot Z79.899 OTHER HR SHARED SERVICES CONSULTANT (CURRENT) DRUG THERAPY 10/13/2017 CODY DIEZ Ot 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 10/13/2017 CODY DIEZ Ot 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 10/13/2017 CODY DIEZ Ot Z12.31 ENCNTR SCREEN MAMMOGRAM FOR MALIGNANT NE 10/13/2017 CODY DIEZ Ot Z79.818 LNG TRM (CRNT) USE OF AGNT AFF ESTROG RE 10/13/2017 CODY DIEZP Ot Z90.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, BILATERAL 10/13/2017 ALONDRA ACOSTA DO Ot K80.50 CALCULUS OF BILE DUCT W/O CHOLANGITIS OR 10/13/2017 XAVIER GARSIA Veena Ot 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 10/13/2017 XAVIER GARSIA Veena Ot 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 10/13/2017 XAVIER GARSIA Veena Ot E66.01 MORBID (SEVERE) OBESITY DUE TO EXCESS CA 10/13/2017 ADY CATSACHI Veena Ot E78.5 HYPERLIPIDEMIA, UNSPECIFIED 10/13/2017 ADY CATSACHI Veena Ot 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 10/13/2017 ADY CATSACHI Veena Ot F31.9 BIPOLAR DISORDER, UNSPECIFIED 10/13/2017 ADYXAVIER Ot I10 ESSENTIAL (PRIMARY) HYPERTENSION 10/13/2017 ADYXAVIER ALCOCER Veena Ot J44.9 CHRONIC OBSTRUCTIVE PULMONARY DISEASE, U 10/13/2017 XAVIER GARSIA Veena Ot K21.9 GASTRO-ESOPHAGEAL REFLUX DISEASE WITHOUT 10/13/2017 XAVIER GARSIA Veena Ot Z12.31 ENCNTR SCREEN MAMMOGRAM FOR MALIGNANT NE 10/13/2017 XAVIER GARSIA Veena Ot Z68.41 BODY MASS INDEX (BMI) 40.0-44.9, ADULT 10/13/2017 XAVIER GARSIA Veena Ot Z79.818 LNG TRM (CRNT) USE OF AGNT AFF ESTROG RE 10/13/2017 XAVIER GARSIA Veena Ot Z79.899 OTHER SENIOR CARE (CURRENT) DRUG THERAPY 10/13/2017 XAVIER GARSIA Veena Ot Z90.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, BILATERAL 10/21/2017 XAVIER GARSIA Veena Ot 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 10/21/2017 XAVIER GARSIA Veena Ot 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 10/21/2017 XAVIER GARSIA Veena Ot E66.01 MORBID (SEVERE) OBESITY DUE TO EXCESS CA 10/21/2017 ADYCATSACHI Veena Ot E78.5 HYPERLIPIDEMIA, UNSPECIFIED 10/21/2017 ADYXAVIER Ot 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 10/21/2017 ADY CATSACHI Veena Ot F31.9 BIPOLAR DISORDER, UNSPECIFIED 10/21/2017 XAVIER GARSIA N Ot I10 ESSENTIAL (PRIMARY) HYPERTENSION 10/21/2017 XAVIER GARSIA Veena Ot J44.9 CHRONIC OBSTRUCTIVE PULMONARY DISEASE, U 10/21/2017 XAVIER GARSIA Veena Ot K21.9 GASTRO-ESOPHAGEAL REFLUX DISEASE WITHOUT 10/21/2017 XAVIER GARSIA Veena Ot Z12.31 ENCNTR SCREEN MAMMOGRAM FOR MALIGNANT NE 10/21/2017 XAVIER GARSIA Veena Ot Z68.41 BODY MASS INDEX (BMI) 40.0-44.9, ADULT 10/21/2017 XAVIER GARSIA Veena Ot Z79.818 LNG TRM (CRNT) USE OF AGNT AFF ESTROG RE 10/21/2017 XAVIER GARSIA N Ot Z79.899 OTHER SENIOR CARE (CURRENT) DRUG THERAPY 10/21/2017 XAVIER GARSIA Veena Ot Z90.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, BILATERAL 11/08/2017 XAVIER GARSIA N Ot 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 11/08/2017 ADY CATSACHI Veena Ot 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 11/08/2017 XAVIER GARSIA Veena Ot E66.01 MORBID (SEVERE) OBESITY DUE TO EXCESS CA 11/08/2017 XAVIER GARSIA Veena Ot E78.5 HYPERLIPIDEMIA, UNSPECIFIED 11/08/2017 XAVIER GARSIA Veena Ot 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 11/08/2017 XAVIER GARSIA Veena Ot F31.9 BIPOLAR DISORDER, UNSPECIFIED 11/08/2017 XAVIER GARSIA Veena Ot I10 ESSENTIAL (PRIMARY) HYPERTENSION 11/08/2017 XAVIER GARSIA Veena Ot J44.9 CHRONIC OBSTRUCTIVE PULMONARY DISEASE, U 11/08/2017 XAVIER GARSIA Veena Ot K21.9 GASTRO-ESOPHAGEAL REFLUX DISEASE WITHOUT 11/08/2017 XAVIER GARSIA Veena Ot Z12.31 ENCNTR SCREEN MAMMOGRAM FOR MALIGNANT NE 11/08/2017 XAVIER GARSIA Veena Ot Z68.41 BODY MASS INDEX (BMI) 40.0-44.9, ADULT 11/08/2017 XAVIER GARSIA N Ot Z79.818 LNG TRM (CRNT) USE OF AGNT AFF ESTROG RE 11/08/2017 XAVIER GARSIA N Ot Z79.899 OTHER SENIOR CARE (CURRENT) DRUG THERAPY 11/08/2017 XAVIER GARSIA Ot Z90.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, BILATERAL 11/15/2017 XAVIER GARSIA Ot 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 11/15/2017 XAVIER GARSIA Ot 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 11/15/2017 XAVIER GARSIA Ot E66.01 MORBID (SEVERE) OBESITY DUE TO EXCESS CA 11/15/2017 XAVIER GARSIA Ot E78.5 HYPERLIPIDEMIA, UNSPECIFIED 11/15/2017 XVAIER GARSIA Veena Ot 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 11/15/2017 XAVIER GARSIA Ot F31.9 BIPOLAR DISORDER, UNSPECIFIED 11/15/2017 XAVIER GARSIA Ot I10 ESSENTIAL (PRIMARY) HYPERTENSION 11/15/2017 XAVIER GARSIA Ot J44.9 CHRONIC OBSTRUCTIVE PULMONARY DISEASE, U 11/15/2017 XAVIER GARSIA Ot K21.9 GASTRO-ESOPHAGEAL REFLUX DISEASE WITHOUT 11/15/2017 XAVIER GARSIA Ot Z12.31 ENCNTR SCREEN MAMMOGRAM FOR MALIGNANT NE 11/15/2017 XAVIER GARSIA Ot Z68.41 BODY MASS INDEX (BMI) 40.0-44.9, ADULT 11/15/2017 XAVIER GARSIA Ot Z79.818 LNG TRM (CRNT) USE OF AGNT AFF ESTROG RE 11/15/2017 XAVIER GARSIA Ot Z79.899 OTHER HR SHARED SERVICES CONSULTANT (CURRENT) DRUG THERAPY 11/15/2017 XAVIER GARSIA Ot Z90.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, BILATERAL Procedures Code Description [place] [address] BRONCHODILATION PRE/POST 02/23/2012 91873 RESPIRATORY FLOW VOLUME LOOP 02/23/2012 21119 SPIROMETRY 02/24/2012 NEURO MEAGAN LAZO 05/01/2012 OphthalmLeno Dyer 06/30/2012 33747 EXCISION BENIGN LESION 0.6- 1 cm (spcify location in [facility] description) 07/04/2012 13285 EXCISION BENIGN LESION 1.1- 2 cm (specify location in [facility] descriiption) 07/04/2012 55056 MRI BRAIN W/O & W/DYE 07/04/2012 ALBERTO WILKERSON 07/04/2012 02238 MRI BRAIN W/O CONTRAST 07/05/201292036 TRIGGER POINT INJ/1-2 MUS 07/21/2012 95545 ROUTINE VENIPUNCTURE 08/25/2012 11381 CMP 08/25/2012 [id number] GFR CALC (RESULT ONLY) 08/25/2012 23813 VITAMIN D 25-HYDROXY (D2,D3 , TOTAL) 08/25/201204854 TRIGGER POINT INJ/1-2 MUS 09/07/2012 27761 A1C (IN-HOUSE) 09/07/2012 61819 OXIMETRY - OVERNIGHT 11/08/2012 OphthalmLg Durán 12/08/2012 G0008 FLU ADMINISTRATION ( MEDICARE ONLY) 01/11/2013 UROLOGY LIZZIE CONTRERAS 01/27/2013 55979 OXIMETRY 02/27/2013 60487 THERAPUTIC INJ SQ/IM 02/27/2013 [id number] DEPO PROVERA 02/27/2013 26229 URINE TEST (IN- HOUSE) 02/27/2013 92565 ROUTINE VENIPUNCTURE 04/07/2013 G0438 PPPS, INITIAL VISIT 04/07/2013 [id number] GFR CALC (RESULT ONLY) 04/07/2013 02115 [facility] 04/07/2013 52210 ROUTINE VENIPUNCTURE 05/22/2013 [id number] DEPO PROVERA 05/22/2013 87780 THERAPUTIC INJ SQ/IM 05/22/2013 64554 [facility] 05/22/2013 [id number] GFR CALC (RESULT ONLY) 05/22/2013 72228 ROUTINE VENIPUNCTURE 08/02/2013 75329 UA W/ CULTURE IF INDICATED 08/02/2013 [id number] GFR CALC (RESULT ONLY) 08/02/2013 77385 [facility] 08/02/2013 05095 LIPID PANEL 08/02/2013 82997 CULTURE URINE 08/03/2013 52643 ROUTINE VENIPUNCTURE 09/15/2013 48335 THERAPUTIC INJ SQ/IM 09/15/2013 J1050 DEPO PROVERA 09/15/2013 82343 CMP 09/15/2013 [id number] GFR CALC (RESULT ONLY) 09/15/2013 49859 ROUTINE VENIPUNCTURE 12/08/2013 78118 CMP 12/08/2013 60157 TSH 12/08/2013 G0008 FLU ADMINISTRATION ( MEDICARE ONLY) 01/08/2014 60079 ROUTINE VENIPUNCTURE 03/30/2014 IRGROUP IRON GROUP (IRON,TIBC, FERRITIN) 03/30/2014 44839 PSYCH DIAGNOSTIC EVALUATION 03/30/2014 42500 CBC 03/30/2014 [id number] GFR CALC (RESULT ONLY) 03/30/2014 37390 CMP 03/30/2014 26908 IRON SERUM 03/30/2014 00386 IRON BNDNG CAP 03/30/2014 29259 TSH 03/30/2014 90479 FERRITIN 03/30/2014 42722 US HEAD (SOFT TISSUE) ULTRASOUND, HEAD 04/10/2014 47667 UA W/ CULTURE IF INDICATED 07/10/2014 78794 THERAPUTIC INJ SQ/IM 07/18/2014 J1050 DEPO PROVERA 07/18/2014 17770 TEST, URINE (IN- HOUSE) 07/18/2014 25323 ROUTINE VENIPUNCTURE MAK APARICIO MD 10/06/2017 21957 COMPREHEN METABOLIC PANEL MAK APARICIO MD 10/06/2017 35783 URINALYSIS AUTO W/SCOPE MAK APARICIO MD 10/06/2017 69958 ASSAY OF AMYLASE MAK APARICIO MD 10/06/2017 21270 ASSAY OF LIPASE MAK APARICIO MD 10/06/2017 37515 COMPLETE CBC W/AUTO DIFF WBC MAK APARICIO MD 10/06/2017 89980 CULTURE AEROBIC IDENTIFY MAK APARICIO MD 10/06/2017 02349 URINE CULTURE/COLONY COUNT MAK APARICIO MD 10/06/2017 86557 MICROBE SUSCEPTIBLE JOHN MAK APARICIO MD 10/06/2017 06097 EMERGENCY DEPT VISIT MAK APARICIO MD 10/06/2017 A9270 NON-COVERED ITEM OR SERVICE MAK APARICIO MD 10/06/2017 Results Test Result Range Complete blood count [...] Automated blood platelet mean volume measurement 8.6 [[facility]] 7.4-10.4 Automated blood neutrophils/100 leukocytes 53 % [...] 15:40 CULTURE, URINE, ROUTINE SEE NOTE NRG Complete urinalysis with reflex to culture - 08/08/17 02:22 Urine color determination YELLOW NRG Urine clarity determination SLIGHTLY CLOUDY NRG Urine pH measurement by test strip 7 5-9 Specific gravity of urine by test strip 1.010 1.016- 1.022 Urine protein assay by test strip, semi-quantitative 1+ NEGATIVE Urine glucose detection by automated test strip NEGATIVE NEGATIVE Erythrocytes detection in urine sediment by light microscopy NEGATIVE NEGATIVE Urine ketones detection by automated test strip NEGATIVE NEGATIVE Urine nitrite detection by test strip NEGATIVE NEGATIVE Urine total bilirubin detection by test strip NEGATIVE NEGATIVE Urine urobilinogen measurement by automated test strip (mass/volume) 4 mg/dL NORMAL Urine leukocyte esterase detection by dipstick 3+ NEGATIVE Automated urine sediment erythrocyte count by microscopy (number/high power field) NONE NRG Automated urine sediment leukocyte count by microscopy (number/high power field ) [HPF] NRG Bacteria detection in urine sediment by light microscopy MODERATE NRG Squamous epithelial cells detection in urine sediment by light microscopy 2-5 NRG Crystals detection in urine sediment by light microscopy NONE NRG Casts detection in urine sediment by light microscopy NONE NRG Mucus detection in urine sediment by light microscopy NEGATIVE NRG Complete urinalysis with reflex to culture YES NRG Bacterial urine culture - 08/08/17 02:22 Bacterial urine culture [id number] NRG COLONY COUNT >100,000/ML NRG FTX;REPORTABLE SENSITIVITY REPORTED 08/09 07:35 NRG Bacterial susceptibility panel - 08/08/17 02:22 Gentamicin susceptibility test by minimum inhibitory concentration < = NRG Trimethoprim/sulfamethoxazole susceptibility test by minimum inhibitoryconcentration S NRG Ampicillin susceptibility test by minimum inhibitory concentration > = NRG Tobramycin susceptibility test by minimum inhibitory concentration 8 NRG Cefazolin susceptibility test by minimum inhibitory concentration < = NRG Ceftriaxone susceptibility test by minimum inhibitory concentration <= NRG Ampicillin/sulbactam susceptibility test by minimum inhibitory concentration R NRG Piperacillin/tazobactam susceptibility test by minimum inhibitory concentration S NRG Ciprofloxacin susceptibility test by minimum inhibitory concentration >= NRG Meropenem susceptibility test by minimum inhibitory concentration < = NRG Nitrofurantoin susceptibility test by minimum inhibitory concentration 32 NRG Aztreonam susceptibility test by minimum inhibitory concentration < = NRG Extended spectrum beta lactamase (ESBL) producing bacteria susceptibility test by minimum inhibitory concentration - NRG Complete blood count (CBC) with automated white blood cell (WBC) differential - 08/08/17 02:37 Blood leukocytes automated count (number/volume) 9.4 10*3/uL 4.3-11.0 Blood erythrocytes automated count (number/volume) 4.40 10*6/uL 4.35-5.85 Venous blood hemoglobin measurement (mass/volume) 11.5 g/dL 11.5-16.0 Blood hematocrit (volume fraction) 37 % 35-52 Automated erythrocyte mean corpuscular volume 83 [foz_us] 80-99 Automated erythrocyte mean corpuscular hemoglobin (mass per erythrocyte) 26 pg 25-34 Automated erythrocyte mean corpuscular hemoglobin concentration measurement ( mass/volume) 31 g/dL 32-36 Automated erythrocyte distribution width ratio 15.6 % 10.0-14.5 Automated blood platelet count (count/volume) 353 10*3/uL 130-400 Automated blood platelet mean volume measurement 8.8 [foz_us] 7.4-10.4 Automated blood neutrophils/100 leukocytes 55 % 42-75 Automated blood lymphocytes/100 leukocytes 31 % 12-44 Blood monocytes/100 leukocytes 8 % 0-12 Automated blood eosinophils/100 leukocytes 6 % 0-10 Automated blood basophils/100 leukocytes 1 % 0-10 Blood neutrophils automated count (number/volume) 5.2 10*3 1.8-7.8 Blood lymphocytes automated count (number/volume) 2.9 10*3 1.0-4.0 Blood monocytes automated count (number/volume) 0.7 10*3 0.0-1.0 Automated eosinophil count 0.5 10*3/uL 0.0-0.3 Automated blood basophil count (count/volume) 0.1 10*3/uL 0.0-0.1 Comprehensive metabolic panel - 08/08/17 02:37 Serum or plasma sodium measurement (moles/volume) 143 mmol/L 135-145 Serum or plasma potassium measurement (moles/volume) 3.8 mmol/L 3.6-5.0 Serum or plasma chloride measurement (moles/volume) 108 mmol/L 98-107 Carbon dioxide 24 mmol/L 21-32 Serum or plasma anion gap determination (moles/volume) 11 mmol/L 5-14 Serum or plasma urea nitrogen measurement (mass/volume) 11 mg/dL 7-18 Serum or plasma creatinine measurement (mass/volume) 1.05 mg/dL 0.60-1.30 Serum or plasma urea nitrogen/creatinine mass ratio 10 NRG Serum or plasma creatinine measurement with calculation of estimated glomerular filtration rate 55 NRG Serum or plasma glucose measurement (mass/volume) 103 mg/dL 70-105 Serum or plasma calcium measurement (mass/volume) 9.4 mg/dL 8.5-10.1 Serum or plasma total bilirubin measurement (mass/volume) 0.4 mg/dL 0.1-1.0 Serum or plasma alkaline phosphatase measurement (enzymatic activity/volume) 91 U/L 40-136 Serum or plasma aspartate aminotransferase measurement (enzymatic activity/ volume) 39 U/L 5-34 Serum or plasma alanine aminotransferase measurement (enzymatic activity/volume ) 37 U/L 0-55 Serum or plasma protein measurement (mass/volume) 6.7 g/dL 6.4-8.2 Serum or plasma albumin measurement (mass/volume) 4.1 g/dL 3.2-4.5 Magnesium - 08/08/17 02:37 Magnesium 2.6 mg/dL 1.8-2.4 Serum or plasma creatine kinase measurement (enzymatic activity/volume) - 08/08 02:37 Serum or plasma creatine kinase measurement (enzymatic activity/volume) 761 U/L 29-168 Serum or plasma troponin i.cardiac measurement (mass/volume) - 08/08/17 02:37 Serum or plasma troponin i.cardiac measurement (mass/volume) < ng/ mL <0.30 BMP - 09/08/17 09:38 Anion Gap 17 6-14 BUN 7 mg/dL 5-25 Calcium 9.1 mg/dL 8.3-10.4 Chloride 108 mmol/L 95-114 CO2 25 mEq/L 22-33 Creat 0.93 mg/dL 0.50-1.50 eGFR 64 mL/min/1.73m2 >59 Glucose 95 mg/dL 70-110 Osmo 301 280-295 Potassium 3.4 mmol/L 3.5-5.3 Sodium 147 mmol/L 134-148 COMPREHENSIVE METABOLIC PANEL - 10/25/17 08:01 GLUCOSE 91 mg/dL 65-99 UREA NITROGEN (BUN) 13 mg/dL 7-25 CREATININE 0.78 mg/dL 0.50-1.05 eGFR NON-AFR. HONDURAN 89 mL/min/1.73m2 > OR=60 eGFR 103 mL/min/1.73m2 > OR=60 BUN/CREATININE RATIO NOT APPLICABLE (calc) 6-22 SODIUM 141 mmol/L 135-146 POTASSIUM 4.1 mmol/L 3.5-5.3 CHLORIDE 107 mmol/L 98-110 CARBON DIOXIDE 24 mmol/L 20-31 CALCIUM 9.3 mg/dL 8.6-10.4 PROTEIN, TOTAL 6.3 g/dL 6.1-8.1 ALBUMIN 4.1 g/dL 3.6-5.1 GLOBULIN 2.2 g/dL (calc) 1.9-3.7 ALBUMIN/GLOBULIN RATIO 1.9 (calc) 1.0-2.5 BILIRUBIN, TOTAL 0.5 mg/dL 0.2-1.2 ALKALINE PHOSPHATASE 83 U/L 33-130 AST 52 U/L 10-35 ALT 72 U/L 6-29 IRON, TIBC AND FERRITIN PANEL - 10/25/17 08:01 IRON, TOTAL 105 mcg/dL 45-160 IRON BINDING CAPACITY 282 mcg/dL (calc) 250-450 % SATURATION 37 % (calc) 11-50 FERRITIN 591 ng/mL 10-232 CBC (INCLUDES DIFF/PLT) - 10/25/17 08:01 WHITE BLOOD CELL COUNT 9.2 Thousand/uL 3.8-10.8 RED BLOOD CELL COUNT 4.97 Million/uL 3.80-5.10 HEMOGLOBIN 14.1 g/dL 11.7-15.5 HEMATOCRIT 43.8 % 35.0-45.0 MCV 88.1 fL 80.0-100.0 MCH 28.4 pg 27.0-33.0 MCHC 32.2 g/dL 32.0-36.0 RDW 13.9 % 11.0-15.0 PLATELET COUNT 298 Thousand/uL 140-400 MPV 9.9 fL 7.5-12.5 ABSOLUTE NEUTROPHILS 5235 cells/uL 0841-6718 ABSOLUTE LYMPHOCYTES 2070 cells/uL 850-3900 ABSOLUTE MONOCYTES 488 cells/uL 200-950 ABSOLUTE EOSINOPHILS 1288 cells/uL 15-500 ABSOLUTE BASOPHILS 120 cells/uL 0-200 NEUTROPHILS 56.9 % NRG LYMPHOCYTES 22.5 % NRG MONOCYTES 5.3 % NRG EOSINOPHILS 14.0 % NRG BASOPHILS 1.3 % NRG LIPID PANEL WITH REFLEX TO DIRECT LDL - 10/25/17 08:01 CHOLESTEROL, TOTAL 195 mg/dL <200 HDL CHOLESTEROL 65 mg/dL >50 TRIGLYCERIDES 71 mg/dL <150 LDL-CHOLESTEROL 113 mg/dL (calc) NRG CHOL/HDLC RATIO 3.0 (calc) <5.0 NON HDL CHOLESTEROL 130 mg/dL (calc) <130 URINALYSIS, COMPLETE W/REFLEX TO CULTURE - 10/26/17 09:49 COLOR YELLOW YELLOW APPEARANCE CLEAR CLEAR SPECIFIC GRAVITY 1.028 1.001-1.035 PH 6.0 5.0-8.0 GLUCOSE NEGATIVE NEGATIVE BILIRUBIN NEGATIVE NEGATIVE KETONES NEGATIVE NEGATIVE OCCULT BLOOD NEGATIVE NEGATIVE PROTEIN NEGATIVE NEGATIVE NITRITE NEGATIVE NEGATIVE LEUKOCYTE ESTERASE NEGATIVE NEGATIVE WBC 6-10 /HPF < OR=5 RBC 3-10 /HPF < OR=2 SQUAMOUS EPITHELIAL CELLS 0-5 /HPF < OR=5 BACTERIA FEW /HPF NONE SEEN HYALINE CAST NONE SEEN /LPF NONE SEEN COMMENTS FEW MUCOUS THREADS NRG CULTURE, URINE, ROUTINE - 10/26/17 09:49 CULTURE, URINE, ROUTINE NRG REFLEXIVE URINE CULTURE - 10/26/17 09:49 REFLEXIVE URINE CULTURE CULTURE INDICATED - RESULTS TO FOLLOW NRG Encounters ACCT No. Visit Date/Time Discharge Status Pt. Type Provider Facility Loc./Unit Complaint [id number] 10/06/2017 05:55:00 10/06/2017 07:45:00 DIS Emergency ALESSANDRA CASTRO, MAK Dw[place] ER [id number] 10/26/2017 09:30:00 10/26/2017 23:59:59 CLS Outpatient [facility] [id number] 10/26/2017 09:30:00 Document Registration [id number] 10/25/2017 08:00:00 Document Registration [id number] 10/29/2017 09:06:00 10/29/2017 23:59:59 CLS Preadmit DUSTIN BALES APRN [facility] REHAB R SHOULDER PAIN [id number] 09/24/2017 16:03:00 09/24/2017 23:59:59 CLS Outpatient XAVIER GARSIA [facility] ONC [id number] 09/06/2017 13:25:00 09/21/2017 00:01:00 DIS Outpatient XAVIER GARSIA [facility] ONC [id number] 08/07/2017 23:47:00 08/08/2017 05:18:00 DIS Emergency MAEVE CHANEL MD [facility] ER VOMITING WITH MEDS [id number] 07/05/2017 07:41:00 07/05/2017 23:59:59 CLS Outpatient ALONDRA ACOSTA DO [facility] RAD CHOLEDOCHOLITHIASIS [id number] 03/23/2017 12:53:00 06/21/2017 00:01:00 DIS Outpatient XAVIER GARSIA [facility] ONC [id number] 03/05/2017 22:04:00 03/05/2017 23:41:00 DIS Emergency KENDY SELLERS DO [facility] ER RT BREAST PAIN,FEVER,POST MASTECTOMY [id number] 02/11/2017 18:47:00 02/11/2017 19:56:00 DIS Emergency KENDY SELLERS DO [facility] ER RASH [id number] 12/01/2016 12:31:00 01/01/2017 13:08:00 DIS Outpatient ADY XAVIER Curiel [facility] ONC [id number] 07/28/2016 12:09:00 10/26/2016 00:01:00 DIS Outpatient XAVIER GARSIA Veena [facility] ONC [id number] 09/27/2016 13:43:00 09/27/2016 14:58:00 DIS Emergency DESTINI CASTRO, RADHA Hawthorne [facility] ER R KNEE PAIN [id number] 08/06/2016 09:56:00 08/06/2016 23:59:59 CLS Outpatient CODY DIEZ [facility] RAD C50.112,Z79.818, Z12.31 [id number] 03/19/2016 11:42:00 06/17/2016 00:01:00 DIS Outpatient XAVIER GARSIA [facility] ONC [id number] 11/19/2015 08:22:00 01/20/2016 11:04:00 DIS Outpatient JARRED CASTRO, ROCÍO [facility] ONC [id number] 10/01/2015 08:40:00 11/12/2015 11:12:00 DIS Outpatient ANJUM BLACK MD [facility] ONC [id number] 09/18/2015 08:22:00 09/18/2015 12:55:00 DIS Outpatient ARUNA TERRELL MD [facility] SDC HISTORY OR BREAST CANCER [id number] 09/12/2015 05:36:00 09/12/2015 10:45:00 DIS Outpatient ARUNA TERRELL MD [facility] PREOP HISTORY OF BREAST CANCER [id number] 08/13/2015 14:40:00 08/13/2015 23:59:59 CLS Preadmit CODY DIEZ [facility] ONC [id number] 07/25/2015 12:59:00 08/07/2015 00:01:00 DIS Outpatient ANJUM BLACK MD [facility] ONC [id number] 08/01/2015 06:55:00 08/01/2015 11:05:00 DIS Outpatient JERRICA GRANADO MD [facility] BREAST CANCER LEFT BREAST [id number] 07/30/2015 08:12:00 07/30/2015 08:29:00 DIS Outpatient JERRICA GRANADO MD [facility] PREOP BREAST CANCER LEFT BREAST [id number] 07/23/2015 14:15:00 07/23/2015 23:59:59 CLS Outpatient CODY DIEZ [facility] ONC [id number] 06/29/2015 00:19:00 06/29/2015 03:29:00 DIS Emergency MAEVE CHANEL MD [facility] ER BLOOD IN STOOL [id number] 05/23/2015 06:25:00 05/24/2015 11:00:00 DIS Outpatient JERRICA GRANADO MD [facility] CARD LEFT BREAST CANCER [id number] 05/21/2015 08:25:00 05/21/2015 23:59:59 CLS Outpatient ANJUM BLACK MD [facility] RAD BREAST CANCER INITAL STAGING [id number] 05/14/2015 06:00:00 05/14/2015 10:07:00 DIS Outpatient LIZZIE CONTRERAS MD [facility] OVERACTIVE BLADDER; VAGINAL LESION; VAGINAL FB [id number] 05/09/2015 05:49:00 05/09/2015 23:59:59 CLS Outpatient LIZZIE CONTRERAS MD [facility] PREOP OVERACTIVE BLADDER; VAGINAL LESION; VAGIONAL FB [id number] 04/17/2015 11:31:00 04/17/2015 23:59:59 CLS Outpatient ELIZABETH LEYVA APRN [facility] RAD BREAST MASS [id number] 12/06/2014 17:30:00 12/07/2014 18:30:00 DIS Outpatient JERRICA GRANADO MD [facility] ACUTE APPENDICITIS [id number] 12/06/2014 13:26:00 12/06/2014 23:59:59 CLS Outpatient MYNOR MAGALLANES DO Reymundo [facility] RAD ABDOMINAL PAIN [id number] 12/06/2014 13:18:00 12/06/2014 23:59:59 CLS Preadmit MAGALLANESMYNOR Quintero DO [facility] RAD ABD PAIN [id number] 12/06/2014 11:19:00 12/06/2014 12:38:00 DIS Emergency ALONSO PARRA MD [facility] ER RIGHT SIDE ABD PAIN [id number] 11/27/2014 06:11:00 11/27/2014 18:25:00 DIS Outpatient MAGALLANESMYNOR Quintero DO [facility] ABNORMAL UTERINE BLEEDING ; FAILED NOVASURE [id number] 11/23/2014 07:02:00 11/23/2014 23:59:59 CLS Outpatient MAGALLANESLeon OLVERA MYNOR C [facility] PREOP ABNORMAL UTERINE BLEEDING; FAILED NOVASURE [id number] 11/20/2014 07:20:00 11/20/2014 11:35:00 DIS Outpatient MAGALLANESLeon OLVERA MYNOR C [facility] DYSFUNCTIONAL UTERINE BLEEDING [id number] 11/19/2014 08:55:00 11/19/2014 23:59:59 CLS Outpatient MAGALLANESMYNOR Quintero DO [facility] PREOP DYSFUNCTIONAL UTERINE BLEEDING [id number] 07/12/2014 09:38:00 07/12/2014 23:59:59 CLS Outpatient CHRIS WINTER APRN [facility] RAD SCREENING,DUB [id number] 02/04/2014 00:09:00 02/04/2014 00:40:00 DIS Emergency RONEL GRAVES DO [facility] ER [id number] 05/17/2013 06:36:00 05/18/2013 13:43:00 DIS Outpatient LIZZIE CONTRERAS MD [facility] [id number] 05/15/2013 09:28:00 05/15/2013 23:59:59 CLS Outpatient LIZZIE CONTRERAS MD [facility] PREOP [id number] 10/01/2012 11:14:00 10/01/2012 23:59:59 CLS Outpatient [id number] 05/22/2015 11:29:00 Document Registration [id number] 04/30/2014 10:38:00 Document Registration [id number] 04/30/2014 10:38:00 Document Registration [id number] 04/30/2014 10:37:00 Document Registration [id number] 03/03/2012 12:43:00 Document Registration [id number] 11/30/2011 15:34:00 Document Registration [id number] 04/07/2011 13:21:00 Document Registration [id number] 03/24/2011 11:32:00 Document Registration [id number] 12/26/2009 08:45:00 Document Registration [id number] 12/18/2009 08:51:00 Document Registration [id number] 12/03/2009 16:08:00 Document Registration [id number] 11/29/2009 08:46:00 Document Registration [id number] 11/21/2009 07:39:00 Document Registration [id number] 08/22/2009 11:54:00 Document Registration [id number] 12/20/2008 12:16:00 Document Registration [id number] 11/30/2008 08:21:00 Document Registration [id number] 11/19/2008 16:36:00 Document Registration [id number] 11/09/2008 08:08:00 Document Registration [id number] 08/03/2014 10:10:00 08/03/2014 23:59:59 CLS Outpatient PHILIPPE SALGUERO DO [id number] 07/19/2014 11:04:00 07/19/2014 23:59:59 CLS Outpatient BOY LUND APRN [id number] 07/18/2014 14:08:00 07/18/2014 23:59:59 CLS Outpatient PHILIPPE SALGUERO DO [id number] 07/10/2014 13:29:00 07/10/2014 23:59:59 CLS Outpatient CHRIS WINTER APRN [id number] 06/29/2014 08:24:00 06/29/2014 23:59:59 CLS Outpatient PHILIPPE SALGUERO DO [id number] 04/10/2014 11:18:00 04/10/2014 23:59:59 CLS Outpatient PHILIPPE SALGUERO DO [id number] 03/30/2014 14:55:00 03/30/2014 23:59:59 CLS Outpatient JACKIE PACHECO [id number] 02/09/2014 09:53:00 02/09/2014 23:59:59 CLS Outpatient PHILIPPE SALGUERO DO [id number] 02/08/2014 11:58:00 02/08/2014 23:59:59 CLS Outpatient BOY LUND APRN [id number] 02/08/2014 11:58:00 02/08/2014 23:59:59 CLS Outpatient BOY LUND APRN [id number] 01/09/2014 11:47:00 01/09/2014 23:59:59 CLS Outpatient BOY LUND APRN [id number] 01/09/2014 11:47:00 01/09/2014 23:59:59 CLS Outpatient BOY LUND APRN [id number] 01/08/2014 10:59:00 01/08/2014 23:59:59 CLS Outpatient PHILIPPE SALGUERO DO [id number] 12/08/2013 13:56:00 12/08/2013 23:59:59 CLS Outpatient PHILIPPE SALGUERO DO [id number] 12/07/2013 10:42:00 12/07/2013 23:59:59 CLS Outpatient BOY LUND APRN [id number] 10/31/2013 14:19:00 10/31/2013 23:59:59 CLS Outpatient BOY LUND APRN [id number] 10/31/2013 14:19:00 10/31/2013 23:59:59 CLS Outpatient BOY LUND APRN [id number] 10/16/2013 11:01:00 10/16/2013 23:59:59 CLS Outpatient PHILIPPE SALGUERO DO [id number] 10/06/2013 11:06:00 10/06/2013 23:59:59 CLS Outpatient DEEDEE SHORT DDS [id number] 09/27/2013 16:06:00 09/27/2013 23:59:59 CLS Outpatient BOY LUND APRN [id number] 09/27/2013 16:06:00 09/27/2013 23:59:59 CLS Outpatient BOY LUND APRN [id number] 09/19/2013 00:00:00 09/19/2013 23:59:59 CLS Outpatient WHITE DDSDEEDEE Marine [id number] 09/15/2013 09:35:00 09/15/2013 23:59:59 CLS Outpatient SALGUERO DO PHILIPPE Ferreira [id number] 09/15/2013 09:35:00 09/15/2013 23:59:59 CLS Outpatient SALGUERO DO PHILIPPE Ferreira [id number] 09/07/2013 12:40:00 09/07/2013 23:59:59 CLS Outpatient BOY LUND APRN [id number] 09/01/2013 10:36:00 09/01/2013 23:59:59 CLS Outpatient WHITE DDSDEEDEE Marine [id number] 08/07/2013 09:51:00 08/07/2013 23:59:59 CLS Outpatient SALGUERO DO PHILIPPE Ferreira [id number] 08/02/2013 12:13:00 08/02/2013 23:59:59 CLS Outpatient MAEVE NARAYANAN PA-C [id number] 07/25/2013 11:41:00 07/25/2013 23:59:59 CLS Outpatient WHITE DDSDEEDEE Marine [id number] 07/03/2013 16:31:00 07/03/2013 23:59:59 CLS Outpatient SALGUERO DO PHILIPPE Ferreira [id number] 05/22/2013 13:20:00 05/22/2013 23:59:59 CLS Outpatient SALGUERO DO PHILIPPE Ferreira [id number] 05/22/2013 13:20:00 05/22/2013 23:59:59 CLS Outpatient SALGUERO DOPHILIPPE [id number] 04/07/2013 12:55:00 04/07/2013 23:59:59 CLS Outpatient SALGUERO DO PHILIPPE Ferreira [id number] 04/07/2013 12:55:00 04/07/2013 23:59:59 CLS Outpatient SALGUERO DOPHILIPPE [id number] 02/27/2013 09:52:00 02/27/2013 23:59:59 CLS Outpatient SALGUERO DOPHILIPPE [id number] 02/27/2013 09:52:00 02/27/2013 23:59:59 CLS Outpatient SALGUERO DOPHILIPPE [id number] 01/27/2013 13:52:00 01/27/2013 23:59:59 CLS Outpatient NOEMY DOPHILIPPE [id number] 01/11/2013 09:50:00 01/11/2013 23:59:59 CLS Outpatient PHILIPPE SALGUERO DO [id number] 07/21/2012 09:13:00 07/21/2012 23:59:59 CLS Outpatient PHILIPPE SALGUERO DO [id number] 07/04/2012 17:00:00 07/04/2012 23:59:59 CLS Outpatient PHILIPPE SALGUERO DO [id number] 05/27/2012 16:26:00 05/27/2012 23:59:59 CLS Outpatient NOEMY DOPHILIPPE [id number] 04/29/2012 15:48:00 04/29/2012 23:59:59 CLS Outpatient [id number] 04/06/2012 10:14:00 04/06/2012 23:59:59 CLS Outpatient LOBO CHERY DDS [id number] 03/08/2012 09:54:00 03/08/2012 23:59:59 CLS Outpatient [id number] 02/04/2012 08:39:00 02/04/2012 23:59:59 CLS Outpatient NOEMY DOPHILIPPE [id number] 12/08/2012 10:16:00 Document Registration [id number] 12/08/2012 10:16:00 Document Registration [id number] 11/05/2012 09:28:00 Document Registration [id number] 10/10/2012 10:09:00 Document Registration [id number] 10/06/2012 10:28:00 Document Registration [id number] 09/07/2012 11:04:00 Document Registration [id number] 08/25/2012 13:39:00 Document Registration [id number] 07/21/2012 09:13:00 Document Registration [id number] 10/08/2017 15:48:42 ACT Document Registration [id number] 10/11/2017 12:00:00 10/11/2017 23:59:59 CLS Outpatient DUSTIN BALES [facility] [id number] 06/07/2017 14:20:00 Document Registration [id number] 06/03/2017 10:20:00 Document Registration [id number] 05/04/2017 08:20:00 Document Registration [id number] 09/17/2017 00:00:00 09/17/2017 13:33:00 DIS Outpatient Arlet Puckett [id number] 09/08/2017 09:15:00 09/08/2017 23:59:00 DIS Outpatient Arlet Puckett
== END 2017-12-22 03:10 | disposition home or self-care (01) ==
LOC: EDUNIT# 00:50 → ER 00:53
DX: M79.89 Other specified soft tissue disorders (principal); G47.30 Sleep apnea, unspecified; I10 Essential (primary) hypertension; G25.81 Restless legs syndrome; J44.9 Chronic obstructive pulmonary disease, unspecified; K21.9 Gastro-esophageal reflux disease without esophagitis; F90.9 Attention-deficit hyperactivity disorder, unspecified type; F41.9 Anxiety disorder, unspecified; F31.9 Bipolar disorder, unspecified; Z91.5 Personal history of self-harm; Z82.49 Family history of ischemic heart disease and other diseases of the circulatory system; Z85.3 Personal history of malignant neoplasm of breast; Z88.8 Allergy status to other drugs, medicaments and biological substances; Z79.51 Long term (current) use of inhaled steroids; Z87.19 Personal history of other diseases of the digestive system; Z87.440 Personal history of urinary (tract) infections; Z87.891 Personal history of nicotine dependence; Z90.89 Acquired absence of other organs; Z90.710 Acquired absence of both cervix and uterus; Z98.51 Tubal ligation status; Z98.890 Other specified postprocedural states
CPT/HCPCS: 36415; 80048; 84550; 85025; 85652; 86141; 96365; 96375

== ENCOUNTER 2018-01-10 15:33 | Emergency (ER) | payer MEDICARE, MEDICAID ==
[~2018-01-10] VITALS: Ht 144.8 cm; Wt 90.7 kg
[~2018-01-10 15:33] MED LIST changes: +SULF1TAB35 PO
--- OUTSIDE RECORDS SUMMARY | 2018-01-10 15:40 | XMS REPORT | Clinical Summary ---
Author Author [facility] Organization [facility] Address Unknown Phone Unavailable Care Team Providers Care Job Foreman Name Role Phone Homer Alejandra MD Unavailable Unavailable Kirill Murray MD Unavailable Unavailable Anjali Slater RN Unavailable Unavailable Daniela Velasquez RN Unavailable Unavailable Amy Cartagena PCP Source Comments Some departments are not documenting in the electronic medical record. 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 Pulse 94 05/22/2016 4:00 PM LAYBOY OPERATOR Temperature 37.2 C (98.9 F) 05/22/2016 4:00 PM LAYBOY OPERATOR Respiratory Rate 18 12/16/2015 12:12 PM CDT Oxygen Saturation 93% 03/17/2016 5:40 PM LAYBOY OPERATOR Inhaled Oxygen - - Concentration Weight 90.7 kg (200 lb) 05/22/2016 4:00 PM LAYBOY OPERATOR Height 147.3 cm (4' 10") 05/22/2016 4:00 PM LAYBOY OPERATOR Body Mass Index 41.8 05/22/2016 4:00 PM LAYBOY OPERATOR Plan of Treatment Health Maintenance Due Date Last Done Comments PHYSICAL (COMPREHENSIVE) 06/26/1974 EXAM PERTUSSIS VACCINE 06/26/1978 HIV SCREENING 06/26/1982 TETANUS VACCINE 06/26/1984 CERVICAL CANCER SCREENING 06/26/1997 BREAST CANCER SCREENING 2007 COLORECTAL CANCER 06/26/2017 SCREENING SHINGLES RECOMBINANT 06/26/2017 VACCINE (1 of 2) INFLUENZA VACCINE 01/17/2018 Implants Implanted Type Area Robotics Mechanic Device Expiration Model / Identifier Date Serial / Lot Matrix Tissue [id number] Alloderm Left: LIFECELL 09/15/2017 [id number] / Thick Acellular Dermis Breast [id number] Implanted: Qty: 1 on 12/26/2015 by 20 / Homer Alejandra MD [id number] 20 Manager Wind Tissue 12.7x10.8cm Breast Left: MENTOR:AESTHETI 06/12/2019 [id number] / 450ml Style 9200 Textured Breast CS PRDT [id number] Implanted: Qty: 1 on 12/26/2015 by 3 / Homer Alejandra MD [id number] Implant Breast 350ml Gel Smooth Left: MENTOR:NEFTALY 12/22/2018 [id number] -[id number] Memorygel Cohesive I Breast CS PRDT BC / Implanted: Qty: 1 on 03/17/2016 by [id number] Homer Alejandra MD 2 / NA Explanted Type Area Robotics Mechanic Device Expiration Model / Identifier Date Serial / Lot Tissue Manager Wind Left: MENTOR NA / Explanted: Qty: 1 on 03/17/2016 Breast [employer] NA / [id number] Results Not on filefrom Last 3 Months
--- OUTSIDE RECORDS SUMMARY | 2018-01-10 15:42 | XMS REPORT ---
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 [place] [facility] [address] [id number] [place] [address]- 3791 Jun, [facility] [place] [facility] [address] [id number] [place] [address]- 0225 Jun, [facility] [place] [facility] [address] [id number] [place] [address]- 9555 Jun, [facility] [place] [facility] [address] [id number] [place] [address]- 7814 Jun, [facility] [place] [facility] [address] [id number] [place] [address]- 3088 Jun, [facility] [place] [facility] [address] [id number] [place] [address]- 9838 Jun, [facility] [place] [facility] [address] [id number] [place] [address]- 0988 Jun, [facility] [place] [facility] [address] [id number] [place] [address]- 7064 Jun, [facility] [place] [facility] [address] [id number] [place] [address]- 6197 Jun, [facility] [place] [facility] [address] [id number] [place] [address]- 2904 Jun, [facility] [place] [facility] [address] [id number] [place] [address]- 1859 Jun, [facility] [place] [facility] [address] [id number] [place] [address]- 1992 Jun, [facility] [place] [facility] [address] [id number] [place] [address]- 0131 19 Jun, 2014 [facility] [place] [facility] [address] [id number] [place] [address]- 6326 18 Jun, 2014 [facility] [place] [facility] [address] [id number] [place] [address]- 1872 18 Jun, 2014 [facility] [place] [facility] [address] [id number] [place] [address]- 1233 18 Jun, 2014 [facility] [place] [facility] [address] [id number] [place] [address]- 0093 18 Jun, 2014 [facility] [place] [facility] [address] [id number] [place] [address]- 9536 17 Jun, 2014 [facility] [place] [facility] [address] [id number] [place] [address]- 5096 17 Jun, 2014 [facility] [place] [facility] [address] [id number] [place] [address]- 3906 17 Jun, 2014 [facility] [place] [facility] [address] [id number] [place] [address]- 4297 17 Jun, 2014 [facility] [place] [facility] [address] [id number] [place] [address]- 1442 13 Jun, 2014 [facility] [place] [facility] [address] [id number] [place] [address]- 3006 13 Jun, 2014 [facility] [place] [facility] [address] [id number] [place] [address]- 5829 12 Jun, 2014 [facility] [place] [facility] [address] [id number] [place] [address]- 1472 12 Jun, 2014 [facility] [place] [facility] [address] [id number] [place] [address]- 8725 10 Jun, 2014 [facility] [place] [facility] [address] [id number] [place] [address]- 8406 10 Jun, 2014 [facility] [place] [facility] [address] [id number] [place] [address]- 8911 Jun, [facility] [place] [facility] [address] [id number] [place] [address]- 6846 Jun, [facility] [place] [facility] [address] [id number] [place] [address]- 3279 Jun, [facility] [place] [facility] [address] [facility] [id number] [place] 1639 Jun, 2014 [facility] [place] [facility] [address] [id number] [place] [address]- 0620 Jun, 2014 [facility] [place] [facility] [address] [id number] [place] [address]- 4155 Jun, [facility] [place] [facility] [address] [id number] [place] [address]- 5126 Jun, [facility] [place] [facility] [address] [facility] [id number] [place] [address]- 6979 Jun, [facility] [place] [facility] [address] [facility] [id number] [place] [address]- 6061 May, 2014 [facility] [place] [facility] [address] [facility] [id number] [place] [address]- 6684 May, 2014 [facility] [place] [facility] [address] [facility] [id number] [place] [address]- 8031 May, 2014 [facility] [place] [facility] [address] [facility] [id number] [place] [address]- 2998 May, 2014 [facility] [place] [facility] [address] [facility] [id number] [place] [address]- 5923 May, 2014 [facility] [place] [facility] [address] [facility] [id number] [place] [address]- 1060 May, 2014 [facility] [place] [facility] [address] [facility] [id number] [place] [address]- 7698 May, 2014 [facility] [place] [facility] [address] [facility] [id number] [place] [address]- 4550 May, 2014 [facility] [place] [facility] [address] [facility] [id number] [place] [address]- 5500 18 May, 2014 [facility] [place] [facility] [address] [id number] [place] [address]- 7366 May, 2014 [facility] [place] [facility] [address] [id number] [place] [address]- 2546 May, 2014 [facility] [place] [facility] [address] [id number] [place] [address] 2546 May, 2014 [facility] [place] [facility] [address] [id number] [place] [address]- 2541 May, 2014 [facility] [place] [facility] [address] [id number] [place] [address]- 6583 May, 2014 [facility] [place] [facility] [address] [facility] [id number] [place] [address]- 3869 May, 2014 [facility] [place] [facility] [address] [facility] [id number] [place] [address]- 2500 May, [facility] [place] [facility] [address] [id number] [place] [address]- 4529 Apr, [facility] [place] [facility] [address] [facility] [id number] [place] [address]- 7934 Apr, [facility] [place] [facility] [address] [facility] [id number] [place] [address]- 7162 Apr, [facility] [place] [facility] [address] [id number] [place] [address]- 9479 Apr, [facility] [place] [facility] [address] [id number] [place] [address]- 0375 Apr, [facility] [place] [facility] [address] [id number] [place] [address]- 0594 Apr, [facility] [place] [facility] [address] [id number] [place] [address]- 8091 Apr, [facility] [place] [facility] [address] [id number] [place] [address]- 7326 Apr, [facility] [place] [facility] [address] [id number] [place] [address]- 9898 Apr, [facility] [place] [facility] [address] [id number] [place] [address]- 6916 Apr, [facility] [place] [facility] [address] [id number] [place] [address]- 6749 Apr, [facility] [place] [facility] [address] [id number] [place] [address]- 0123 Apr, [facility] [place] [facility] [address] [id number] [place] [address]- 4577 Apr, [facility] [place] [facility] [address] [id number] [place] [address]- 1366 Apr, [facility] [place] [facility] [address] [id number] [place] [address]- 1737 Apr, [facility] [place] [facility] [address] [id number] [place] [address]- 2987 Mar, [facility] [place] [facility] [address] [id number] [place] [address]- 4534 Mar, [facility] [place] [facility] [address] [id number] [place] [address]- 0721 Mar, [facility] [place] [facility] [address] [id number] [place] [address]- 2347 Mar, [facility] [place] [facility] [address] [id number] [place] [address]- 5598 Mar, [facility] [place] [facility] [address] [id number] [place] [address]- 9740 Mar, [facility] [place] [facility] [address] [id number] [place] [address]- 9693 Mar, [facility] [place] [facility] [address] [id number] [place] [address]- 8219 Mar, [facility] [place] [facility] [address] [id number] [place] [address]- 2328 15 Mar, 2014 [facility] [address] [id number] [place] [address]- 3024 15 Mar, 2014 [facility] [place] [facility] [address] [id number] [place] [address]- 7028 15 Mar, 2014 [facility] [address] [id number] [place] [address]- 9590 Mar, [facility] [place] [facility] [address] [id number] [place] [address]- 1118 Mar, [facility] [address] [id number] [place] [address]- 2722 Mar, [facility] [place] [facility] [address] [id number] [place] [address]- 1833 Mar, [facility] [place] [facility] [address] [id number] [place] [address]- 2442 Mar, [facility] [address] [id number] [place] [address]- 0821 Mar, [facility] [place] [facility] [address] [id number] [place] [address]- 7631 Mar, [facility] [address] [id number] [place] [address]- 7684 Feb, [facility] [place] [facility] [address] [id number] [place] [address]- 8978 Feb, [facility] [place] [facility] [address] [id number] [place] [address]- 1982 Feb, [facility] [place] [facility] [address] [id number] [place] [address]- 9150 Feb, [facility] [place] [facility] [address] [id number] [place] [address]- 0576 Feb, [facility] [place] [facility] [address] [id number] [place] [address] Feb, [facility] [place] [facility] [address] [id number] [place] [address] Feb, [facility] [place] [facility] [address] [id number] [place] [address] Feb, [facility] [place] [facility] [address] [id number] [place] [address] Jan, [facility] [place] [facility] [address] [id number] [place] [address] Jan, [facility] [place] [facility] [address] [id number] [place] [address] Jan, [facility] [place] [facility] [address] [id number] [place] [address] Jan, [facility] [place] [facility] [address] [id number] [place] [address] Jan, [facility] [place] [facility] [address] [id number] [place] [address] Jan, [facility] [place] [facility] [address] [id number] [place] [address] Jan, [facility] [place] [facility] [address] [id number] [place] [address] Jan, [facility] [place] [facility] [address] [id number] [place] [address] Jan, [facility] [place] [facility] [address] [id number] [place] [address] Jan, [facility] [place] [facility] [address] [id number] [place] [address] Jan, [facility] [place] [facility] [address] [id number] [place] [address]- [address] Jan, [facility] [place] [facility] [address] [id number] [place] [address]- [address] Jan, [facility] [place] [facility] [address] [id number] [place] [address] Jan, [facility] [place] [facility] [address] [id number] [place] [address] 16 Jan, 2014 [facility] [place] [facility] [address] [id number] [place] [address] 16 Jan, 2014 [facility] [place] [facility] [address] [id number] [place] [address] 13 Jan, 2014 [facility] [place] [facility] [address] [id number] [place] [address] 13 Jan, 2014 [facility] [place] [facility] [address] [id number] [place] [address] 29 Dec, 2013 [facility] [place] [facility] [address] [id number] [place] [address] 29 Dec, 2013 [facility] [place] [facility] [address] [id number] [place] [address] 26 Dec, 2013 [facility] [place] [facility] [address] [id number] [place] [address] 26 Dec, 2013 [facility] [place] [facility] [address] [id number] [place] [address]- [address] 26 Dec, 2013 [facility] [place] [facility] [address] [id number] [place] [address]- [address] 26 Dec, 2013 [facility] [place] [facility] [address] [id number] [place] [address] 23 Dec, 2013 [facility] [place] [facility] [address] [id number] [place] [address]- [address] 23 Dec, 2013 [facility] [place] [facility] [address] [id number] [place] [address]- [address] 22 Dec, 2013 [facility] [place] [facility] [address] [id number] [place] [address]- [address] 22 Dec, 2013 [facility] [place] [facility] [address] [id number] [place] [address]- [address] 16 Dec, 2013 [facility] [place] [facility] [address] [id number] [place] [address]- [address] 16 Dec, 2013 [facility] [place] [facility] [address] [id number] [place] [address] 15 Dec, 2013 [facility] [place] [facility] [address] [id number] [place] [address]- [address] 15 Dec, 2013 [facility] [place] [facility] [address] [id number] [place] [address]- [address] 09 Dec, 2013 [facility] [place] [facility] [address] [id number] [place] [address] Dec, [facility] [place] [facility] [address] [id number] [place] [address] Dec, [facility] [place] [facility] [address] [id number] [place] [address]- [address] Nov, [facility] [place] [facility] [address] [id number] [place] [address] Nov, [facility] [place] [facility] [address] [id number] [place] [address] Nov, [facility] [place] [facility] [address] [id number] [place] [address]- [address] Nov, [facility] [place] [facility] [address] [id number] [place] [address] Nov, [facility] [place] [facility] [address] [id number] [place] [address] Nov, [facility] [place] [facility] [address] [id number] [place] [address] Nov, [facility] [place] [facility] [address] [id number] [place] [address] Nov, [facility] [place] [facility] [address] [id number] [place] [address]- [address] Nov, [facility] [place] [facility] [address] [id number] [place] [address] Nov, [facility] [place] [facility] [address] [id number] [place] [address] Nov, [facility] [place] [facility] [address] [id number] [place] [address]- [address] Nov, [facility] [place] [facility] [address] [id number] [place] [address] Nov, [facility] [place] [facility] [address] [id number] [place] [address] Nov, [facility] [place] [facility] [address] [id number] [place] [address] Nov, [facility] [place] [facility] [address] [id number] [place] [address] Nov, [facility] [place] [facility] [address] [id number] [place] [address] 2826 Nov, [facility] [place] [facility] [address] [id number] [place] [address]- 2741 Nov, [facility] [place] [facility] [address] [id number] [place] [address] 4251 Nov, [facility] [place] [facility] [address] [id number] [place] [address]- 9022 Nov, [facility] [place] [facility] [address] [id number] [place] [address]- 49[address] Nov, [facility] [place] [facility] [address] [id number] [place] [address] 7841 Oct, [facility] [place] [facility] [address] [id number] [place] [address] 7191 Oct, [facility] [place] [facility] [address] [id number] [place] [address]- 1314 Oct, [facility] [place] [facility] [address] [id number] [place] [address]- 0076 Oct, [facility] [place] [facility] [address] [id number] [place] [address]- 3446 Oct, [facility] [place] [facility] [address] [id number] [place] [address] 5988 Oct, [facility] [place] [facility] [address] [id number] [place] [address] 1985 Oct, [facility] [place] [facility] [address] [id number] [place] [address]- 1746 Oct, [facility] [place] [facility] [address] [id number] [place] [address]- 6436 Oct, [facility] [place] [facility] [address] [id number] [place] [address]- 1977 Oct, [facility] [place] [facility] [address] [id number] [place] [address]- 9260 Oct, [facility] [place] [facility] [address] [id number] [place] [address]- 8441 Oct, [facility] [place] [facility] [address] [id number] [place] [address]- 6926 Oct, [facility] [place] [facility] [address] [id number] [place] [address]- 6784 Oct, [facility] [place] [facility] [address] [id number] [place] [address]- 1204 Oct, [facility] [place] [facility] [address] [id number] [place] [address]- 3239 Sep, [facility] [place] [facility] [address] [id number] [place] [address]- 8383 Sep, [facility] [place] [facility] [address] [id number] [place] [address]- 1998 Sep, [facility] [place] [facility] [address] [id number] [place] [address]- 3703 Sep, [facility] [place] [facility] [address] [id number] [place] [address]- 0503 Sep, [facility] [place] [facility] [address] [id number] [place] [address]- 2848 20 Sep, 2013 [facility] [place] [facility] [address] [id number] [place] [address]- 5844 18 Sep, 2013 [facility] [place] [facility] [address] [id number] [place] [address]- 9498 18 Sep, 2013 [facility] [place] [facility] [address] [id number] [place] [address]- 4798 17 Sep, 2013 [facility] [place] [facility] [address] [id number] [place] [address]- 8434 16 Sep, 2013 [facility] [place] [facility] [address] [id number] [place] [address]- 2459 Sep, [facility] [place] [facility] [address] [id number] [place] [address]- 9282 Sep, [facility] [place] [facility] [address] [id number] [place] [address]- 5754 Sep, [facility] [place] [facility] [address] [id number] [place] [address]- 1418 Sep, [facility] [place] [facility] [address] [id number] [place] [address]- 6273 Sep, [facility] [place] [facility] [address] [id number] [place] [address]- 0744 Sep, [facility] [place] [facility] [address] [id number] [place] [address]- 7562 Sep, [facility] [place] [facility] [address] [id number] [place] [address]- 9528 04 Sep, 2013 [facility] [place] [facility] [address] [id number] [place] [address]- 4671 03 Sep, 2013 [facility] [place] [facility] [address] [id number] [place] [address]- 7196 03 Sep, 2013 [facility] [place] [facility] [address] [id number] [place] [address]- 9196 Sep, [facility] [address] [id number] [place] [address] Sep, [facility] [place] [facility] [address] [id number] [place] [address]- 7958 August, [facility] [place] [facility] [address] [id number] [place] [address]- 0394 August, [facility] [place] [facility] [address] [id number] [place] [address]- 2543 August, [facility] [place] [facility] [address] [id number] [place] [address]- 3043 August, [facility] [place] [facility] [address] [id number] [place] [address]- 5058 August, [facility] [place] [facility] [address] [id number] [place] [address]- 8201 August, [facility] [place] [facility] [address] [id number] [place] [address]- 5519 August, [facility] [place] [facility] [address] [id number] [place] [address]- 2651 August, [facility] [place] [facility] [address] [id number] [place] [address]- 9301 August, [facility] [place] [facility] [address] [id number] [place] [address]- 8516 August, [facility] [place] [facility] [address] [id number] [place] [address]- 6997 August, [facility] [place] [facility] [address] [id number] [place] August, [facility] [place] [facility] [address] [id number] [place] [address]- 4219 August, [facility] [place] [facility] [address] [id number] [place] [address] August, [facility] [place] [facility] [address] [id number] [place] [address]- 8555 August, [facility] [address] [id number] [place] [address]- 6366 August, [facility] [address] [id number] [place] [address]- 7638 August, [facility] [address] [id number] [place] [address]- 3970 August, [facility] [address] [id number] [place] [address]- 9562 Jul, [facility] [address] [id number] [place] [address]- 3514 Jul, [facility] [address] [id number] [place] [address]- 4300 Jul, [facility] [address] [id number] [place] [address]- 6778 Jul, [facility] [address] [id number] [place] [address]- 2593 Jul, [facility] [address] [id number] [place] [address]- 5417 Jul, [facility] [address] [id number] [place] [address]- 2870 Jul, [facility] [place] [facility] [address] [id number] [place] [address]- 5983 Jul, [facility] [address] [id number] [place] [address]- 9507 Jul, [facility] [place] [facility] [address] [id number] [place] [address]- 0478 Jul, [facility] [place] [facility] [address] [id number] [place] [address]- 9607 Jul, [facility] [place] [facility] [address] [id number] [place] [address]- 1280 Jul, [facility] [place] [facility] [address] [id number] [place] [address]- 4784 18 Jul, 2013 [facility] [place] [facility] [address] [id number] [place] [address]- 8039 17 Jul, 2013 [facility] [place] [facility] [address] [id number] [place] [address]- 1610 17 Jul, 2013 [facility] [place] [facility] [address] [id number] [place] [address]- 7691 17 Jul, 2013 [facility] [place] [facility] [address] [id number] [place] [address]- 3115 17 Jul, 2013 [facility] [place] [facility] [address] [id number] [place] [address]- 2096 16 Jul, 2013 [facility] [place] [facility] [address] [id number] [place] [address]- 8911 16 Jul, 2013 [facility] [place] [facility] [address] [id number] [place] [address]- 7069 15 Jul, 2013 [facility] [place] [facility] [address] [id number] [place] [address]- 5336 15 Jul, 2013 [facility] [place] [facility] [address] [id number] [place] [address]- 0234 14 Jul, 2013 [facility] [place] [facility] [address] [id number] [place] [address]- 1818 14 Jul, 2013 [facility] [place] [facility] [address] [id number] [place] [address]- 0997 12 Jul, 2013 [facility] [place] [facility] [address] [id number] [place] [address]- 7914 12 Jul, 2013 [facility] [place] [facility] [address] [id number] [place] [address]- 3893 03 Jul, 2013 [facility] [place] [facility] [address] [id number] [place] [address]- 3724 03 Jul, 2013 [facility] [place] [facility] [address] [id number] [place] [address]- 9756 Jul, [facility] [place] [facility] [address] [id number] [place] [address]- 8937 Jul, [facility] [place] [facility] [address] [id number] [place] [address]- 0286 17 Jun, 2013 [facility] [place] [facility] [address] [id number] [place] [address]- 8946 17 Jun, 2013 [facility] [place] [facility] [address] [id number] [place] [address]- 2188 17 Jun, 2013 [facility] [place] [facility] [address] [id number] [place] [address]- 3984 17 Jun, 2013 [facility] [place] [facility] [address] [id number] [place] [address]- 1475 Jun, [facility] [place] [facility] [address] [id number] [place] [address]- 5411 Jun, [facility] [place] [facility] [address] [id number] [place] [address]- 0611 11 Jun, 2013 [facility] [place] [facility] [address] [id number] [place] [address]- 2308 11 Jun, 2013 [facility] [place] [facility] [address] [id number] [place] [address]- 0496 10 Jun, 2013 [facility] [place] [facility] [address] [id number] [place] [address]- 6829 Jun, [facility] [place] [facility] [address] [id number] [place] [address]- 2515 Jun, [facility] [place] [facility] [address] [id number] [place] [address]- 0214 Jun, [facility] [place] [facility] [address] [id number] [place] [address]- 4208 May, [facility] [place] [facility] [address] [id number] [place] [address]- 7431 May, [facility] [place] [facility] [address] [id number] [place] [address]- 2490 May, [facility] [place] [facility] [address] [id number] [place] [address]- 4066 May, [facility] [place] [facility] [address] [id number] [place] [address]- 0636 May, [facility] [place] [facility] [address] [id number] [place] [address]- 8696 May, [facility] [place] [facility] [address] [id number] [place] [address]- 6193 May, [facility] [place] [facility] [address] [id number] [place] [address]- 7742 May, [facility] [place] [facility] [address] [id number] [place] [address]- 3373 May, [facility] [place] [facility] [address] [id number] [place] [address]- 8367 May, [facility] [place] [facility] [address] [id number] [place] [address]- 5802 Apr, [facility] [place] [facility] [address] [id number] [place] [address]- 5788 Apr, [facility] [place] [facility] [address] [id number] [place] [address]- 1795 Apr, [facility] [place] [facility] [address] [id number] [place] [address]- 0037 Apr, [facility] [place] [facility] [address] [id number] [place] [address]- 6957 Apr, [facility] [place] [facility] [address] [id number] [place] [address]- 4576 Apr, [facility] [place] [facility] [address] [id number] [place] [address]- 8958 Apr, [facility] [place] [facility] [address] [id number] [place] [address]- 4057 Apr, [facility] [address] [id number] [place] [address]- 6167 Apr, [facility] [place] [facility] [address] [id number] [place] [address]- 4036 Apr, [facility] [place] [facility] [address] [id number] [place] [address]- 7889 Mar, [facility] [place] [facility] [address] [id number] [place] [address]- 2750 Mar, [facility] [place] [facility] [address] [id number] [place] [address]- 3577 Mar, [facility] [place] [facility] [address] [id number] [place] [address]- 3489 Mar, [facility] [address] [id number] [place] [address]- 3134 Mar, [facility] [place] [facility] [address] [id number] [place] [address]- 8789 Mar, [facility] [place] [facility] [address] [id number] [place] [address]- 7847 Feb, [facility] [place] [facility] [address] [id number] [place] [address]- 1134 Feb, [facility] [place] [facility] [address] [id number] [place] [address]- 4269 Feb, [facility] [place] [facility] [address] [id number] [place] [address]- 7931 Jan, [facility] [place] [facility] [address] [id number] [place] [address]- 2595 Jan, [facility] [place] [facility] [address] [id number] [place] [address]- 7136 Jan, [facility] [place] [facility] [address] [id number] [place] [address]- 6019 Jan, [facility] [place] [facility] [address] [id number] [place] [address]- 3870 15 Jan, 2013 [facility] [place] [facility] [address] [id number] [place] [address]- 1636 15 Jan, 2013 [facility] [place] [facility] [address] [id number] [place] [address]- 2966 Jan, [facility] [place] [facility] [address] [id number] [place] [address]- 2346 Jan, [facility] [place] [facility] [address] [id number] [place] [address]- 9990 Jan, [facility] [place] [facility] [address] [id number] [place] [address]- 8996 Jan, [facility] [place] [facility] [address] [id number] [place] [address]- 4836 30 Dec, 2012 [facility] [place] [facility] [address] [id number] [place] [address]- 9874 25 Dec, 2012 [facility] [place] [facility] [address] [id number] [place] [address]- 9567 11 Dec, 2012 [facility] [place] [facility] [address] [id number] [place] [address]- 6750 Dec, [facility] [place] [facility] [address] [id number] [place] [address] 254 05 Dec, 2012 [facility] [place] [facility] [address] [id number] [place] [address]- 2548 04 Dec, 2012 [facility] [place] [facility] [address] [id number] [place] [address] 2547 Nov, [facility] [place] [facility] [address] [id number] [place] [address] 2546 Nov, [facility] [place] [facility] [address] [id number] [place] [address] 2541 Nov, [facility] [place] [facility] [address] [id number] [place] [address]- 0686 Nov, [facility] [place] [facility] [address] [id number] [place] [address]- 8548 Nov, [facility] [place] [facility] [address] [id number] [place] [address]- 1010 Nov, [facility] [place] [facility] [address] [id number] [place] [address]- 4599 Nov, [facility] [place] [facility] [address] [id number] [place] [address]- 0353 Nov, [facility] [place] [facility] [address] [id number] [place] [address]- 7696 Nov, [facility] [place] [facility] [address] [id number] [place] [address]- 2582 Nov, [facility] [place] [facility] [address] [id number] [place] [address]- 4365 Nov, [facility] [place] [facility] [address] [id number] [place] [address]- 0714 Nov, [facility] [place] [facility] [address] [id number] [place] [address]- 5301 Oct, [facility] [place] [facility] [address] [id number] [place] [address]- 2558 Oct, [facility] [place] [facility] [address] [id number] [place] [address]- 8852 Oct, [facility] [place] [facility] [address] [id number] [place] [address]- 1718 Sep, [facility] [place] [facility] [address] [id number] [place] [address]- 8403 Sep, [facility] [place] [facility] [address] [id number] [place] [address]- 2639 Sep, [facility] [place] [facility] [address] [id number] [place] [address]- 7188 August, [facility] [place] [facility] [address] [id number] [place] [address]- 2486 August, [facility] [address] [id number] [place] [address]- 3603 August, [facility] [address] [id number] [place] [address]- 3439 August, [facility] [address] [id number] [place] [address]- 6005 August, [facility] [address] [id number] [place] [address]- 6025 August, [facility] [address] [id number] [place] [address]- 5652 Jul, [facility] [address] [id number] [place] [address]- 9955 15 Jul, 2012 [facility] [address] [id number] [place] [address]- 5572 Jul, [facility] [address] [id number] [place] [address]- 6104 Jul, [facility] [address] [id number] [place] [address]- 1175 Jul, [facility] [address] [id number] [place] [address]- 6656 Jul, [facility] [address] [id number] [place] [address]- 2059 2012 [facility] [address] [id number] [place] [address]- 4768 20 Jun, 2012 [facility] [address] [id number] [place] [address]- 6725 18 Jun, 2012 [facility] [address] [id number] [place] [address]- 7687 14 Jun, 2012 [facility] [address] [id number] [place] [address]- 3981 Jun, [facility] [address] [id number] [place] [address]- 9912 13 May, 2012 [facility] [place] [facility] [address] [id number] [place] [address]- 1326 May, [facility] [place] [facility] [address] [id number] [place] [address] 2546 May, [facility] [place] [facility] [address] [id number] [place] [address] 2546 May, [facility] [address] [id number] [place] [address]- 3350 Apr, [facility] [place] [facility] [address] [id number] [place] [address]- 5863 Apr, [facility] [place] [facility] [address] [id number] [place] [address]- 1825 Apr, [facility] [address] [id number] [place] [address]- 2797 Mar, [facility] [place] [facility] [address] [id number] [place] [address] 2546 Mar, [facility] [place] [facility] [address] [id number] [place] [address] 2546 Mar, [facility] [place] [facility] [address] [id number] [place] [address] 2546 29 Mar, 2012 [facility] [place] [facility] [address] [id number] [place] [address] 2546 Mar, [facility] [place] [facility] [address] [id number] [place] [address] 2546 17 Mar, 2012 [facility] [place] [facility] [address] [id number] [place] [address]- 2546 17 Mar, 2012 [facility] [place] [facility] [address] [id number] [place] [address]- 2546 06 Mar, 2012 [facility] [place] [facility] [address] [id number] [place] [address]- 6583 Feb, [facility] [place] [facility] [address] [id number] [place] [address]- 9422 Feb, [facility] [place] [facility] [address] [id number] [place] [address]- 1073 Feb, [facility] [place] [facility] [address] [id number] [place] [address]- 6016 Feb, [facility] [place] [facility] [address] [id number] [place] [address]- 3891 Feb, [facility] [place] [facility] [address] [id number] [place] [address] Feb, [facility] [place] [facility] [address] [id number] [place] [address] Feb, [facility] [place] [facility] [address] [id number] [place] [address] Feb, [facility] [place] [facility] [address] [id number] [place] [address] Feb, [facility] [place] [facility] [address] [id number] [place] [address] 7669 Feb, [facility] [place] [facility] [address] [id number] [place] [address] Feb, [facility] [place] [facility] [address] [id number] [place] [address] 9564 Feb, [facility] [place] [facility] [address] [id number] [place] [address] Feb, [facility] [place] [facility] [address] [id number] [place] [address] Feb, [facility] [place] [facility] [address] [id number] [place] [address] Feb, [facility] [place] [facility] [address] [id number] [place] [address] Feb, [facility] [place] [facility] [address] [id number] [place] [address] 05 Feb, 2012 [facility] [place] [facility] [address] [id number] [place] [address]- [address] 05 Feb, 2012 [facility] [place] [facility] [address] [id number] [place] [address]63 23 Jan, 2012 [facility] [place] [facility] [address] [id number] [place] [address] Jan, [facility] [place] [facility] [address] [id number] [place] [address]- 4987 22 Jan, 2012 [facility] [place] [facility] [address] [id number] [place] [address] Jan, [facility] [place] [facility] [address] [id number] [place] [address] 20 Jan, 2012 [facility] [place] [facility] [address] [id number] [place] [address]- 8867 19 Jan, 2012 [facility] [place] [facility] [address] [id number] [place] [address]- 1194 18 Jan, 2012 [facility] [place] [facility] [address] [id number] [place] [address]- [address] 18 Jan, 2012 [facility] [place] [facility] [address] [id number] [place] [address]- 0698 15 Jan, 2012 [facility] [place] [facility] [address] [id number] [place] [address]- 4398 15 Jan, 2012 [facility] [place] [facility] [address] [id number] [place] [address]- 2383 11 Jan, 2012 [facility] [place] [facility] [address] [id number] [place] [address]- [address]136 11 Jan, 2012 [facility] [place] [facility] [address] [id number] [place] [address] 10 Jan, 2012 [facility] [place] [facility] [address] [id number] [place] [address]- 2025 Jan, [facility] [place] [facility] [address] [id number] [place] [address] 0[address] Jan, [facility] [place] [facility] [address] [id number] [place] [address] 5870 29 Dec, 2011 [facility] [place] [facility] [address] [id number] [place] [address] 2367 Dec, [facility] [place] [facility] [address] [id number] [place] [address] 8783 Dec, [facility] [place] [facility] [address] [id number] [place] [address] 7798 Dec, [facility] [place] [facility] [address] [id number] [place] [address] 06[address] Nov, [facility] [place] [facility] [address] [id number] [place] [address] 8134 Nov, [facility] [place] [facility] [address] [id number] [place] [address]- 59[address] Nov, [facility] [place] [facility] [address] [id number] [place] [address]- 0573 Nov, [facility] [place] [facility] [address] [id number] [place] [address] 0874 Nov, [facility] [place] [facility] [address] [id number] [place] [address] 480[address] Nov, [facility] [place] [facility] [address] [id number] [place] [address]- [address] Nov, [facility] [place] [facility] [address] [id number] [place] [address] 1470 Nov, [facility] [place] [facility] [address] [id number] [place] [address] 1521 Nov, [facility] [place] [facility] [address] [id number] [place] [address]- 1015 Nov, [facility] [place] [facility] [address] [id number] [place] [address]- [address] Nov, [facility] [place] [facility] [address] [id number] [place] [address] 8657 Oct, [facility] [place] [facility] [address] [id number] [place] [address]- 3546 Oct, [facility] [place] [facility] [address] [id number] [place] [address]- 1026 Oct, [facility] [place] [facility] [address] [id number] [place] [address] 2542 Oct, [facility] [place] [facility] [address] [id number] [place] [address]- 9364 Oct, [facility] [place] [facility] [address] [id number] [place] [address]- 1769 Oct, [facility] [place] [facility] [address] [id number] [place] [address] 2239 Oct, [facility] [place] [facility] [address] [id number] [place] [address] 8963 Oct, [facility] [place] [facility] [address] [id number] [place] [address]- 3983 Sep, [facility] [place] [facility] [address] [id number] [place] [address]- 0357 Sep, [facility] [place] [facility] [address] [id number] [place] [address] 254 Sep, [facility] [place] [facility] [address] [id number] [place] [address]- 0[address] Sep, [facility] [place] [facility] [address] [id number] [place] [address] 4228 Sep, [facility] [place] [facility] [address] [id number] [place] [address] 1600 Sep, [facility] [place] [facility] [address] [id number] [place] [address]- 8170 Sep, [facility] [place] [facility] [address] [id number] [place] [address] 7030 August, [facility] [address] [id number] [place] [address] 9[address] August, [facility] [address] [id number] [place] [address] August, [facility] [address] [id number] [place] [address] 9228 August, [facility] [address] [id number] [place] [address]- 5292 August, [facility] [address] [id number] [place] [address]- 9746 August, [facility] [address] [id number] [place] [address]- 2196 August, [facility] [address] [id number] [place] [address] 9936 August, [facility] [address] [id number] [place] [address]- 3337 Jul, [facility] [address] [id number] [place] [address] Jul, [facility] [address] [id number] [place] [address] Jul, [facility] [address] [id number] [place] [address] Jul, [facility] [place] [facility] [address] [id number] [place] [address] 05 Jul, 2011 [facility] [place] [facility] [address] [id number] [place] [address] 28 Jun, 2011 [facility] [place] [facility] [address] [id number] [place] [address] Jun, [facility] [address] [id number] [place] [address] 20 Jun, 2011 [facility] [place] [facility] [address] [id number] [place] [address] 19 Jun, 2011 [facility] [place] [facility] [address] [id number] [place] [address] Jun, [facility] [place] [facility] [address] [facility] [id number] [place] [address] Jun, [facility] [place] [facility] [address] [id number] [place] [address] Jun, [facility] [place] [facility] [address] [id number] [place] [address] Jun, [facility] [place] [facility] [address] [facility] [id number] [place] [address] 06 Jun, 2011 [facility] [place] [facility] [address] [id number] [place] [address] 27 May, 2011 [facility] [place] [facility] [address] [facility] [id number] [place] [address] 24 May, 2011 [facility] [place] [facility] [address] [facility] [id number] [place] [address] 23 May, 2011 [facility] [place] [facility] [address] [facility] [id number] [place] [address] 23 May, 2011 [facility] [place] [facility] [address] [id number] [place] [address] 11 May, 2011 [facility] [place] [facility] [address] [facility] [id number] [place] [address] 10 May, 2011 [facility] [place] [facility] [address] [facility] [id number] [place] [address] 07 May, 2011 [facility] [place] [facility] [address] [facility] [id number] [place] [address] 4036 06 May, 2011 [facility] [place] [facility] [address] [facility] [id number] [place] [address] Apr, [facility] [place] [facility] [address] [id number] [place] [address] Apr, [facility] [address] [id number] [place] [address] Apr, [facility] [address] [id number] [place] [address] Apr, [facility] [address] [id number] [place] [address] 48[address] Apr, [facility] [address] [id number] [place] [address] Apr, [facility] [address] [id number] [place] [address] Mar, [facility] [address] [id number] [place] [address] 67[address] Mar, [facility] [address] [id number] [place] [address] 2468 Mar, [facility] [address] [id number] [place] [address] 58[address] Mar, [facility] [address] [id number] [place] [address] 15 Mar, 2011 [facility] [address] [id number] [place] [address] Mar, [facility] [address] [id number] [place] [address] 24[address] Mar, [facility] [address] [id number] [place] [address] 3579 Mar, [facility] [address] [id number] [place] [address] 4[address] Mar, [facility] [address] [id number] [place] [address]- 9475 06 Mar, 2011 [facility] [address] [id number] [place] [address] Mar, [facility] [place] [facility] [address] [id number] [place] [address]107 Mar, [facility] [place] [facility] [address] [id number] [place] [address] Mar, [facility] [place] [facility] [address] [id number] [place] [address] Feb, [facility] [place] [facility] [address] [id number] [place] [address] Feb, [facility] [place] [facility] [address] [id number] [place] [address] 1678 Feb, [facility] [place] [facility] [address] [id number] [place] [address] Feb, [facility] [place] [facility] [address] [id number] [place] [address] 59[address] Feb, [facility] [place] [facility] [address] [id number] [place] [address] 3874 Feb, [facility] [place] [facility] [address] [id number] [place] [address] 8136 Feb, [facility] [place] [facility] [address] [id number] [place] [address] 114[address] Jan, [facility] [place] [facility] [address] [id number] [place] [address] Jan, [facility] [place] [facility] [address] [id number] [place] [address] Jan, [facility] [place] [facility] [address] [id number] [place] [address]- 47[address] Nov, [facility] [place] [facility] [address] [id number] [place] [address]800 Mar, [facility] [place] [facility] [address] [id number] [place] [address] 0100 Mar, [facility] [place] [facility] [address] [id number] [place] [address] 74[address] 20 Mar, 2010 [facility] [address] [id number] [place] [address] Mar, [facility] [id number] [place] [address] Mar, [facility] [address] [id number] [place] [address] Feb, [facility] [id number] [place] [address] Feb, [facility] [id number] [place] [address] 24 Feb, 2010 [facility] [id number] [place] [address] 6[address] Feb, [facility] [id number] [place] [address] Feb, [facility] [address] [id number] [place] [address] Feb, IMMUNIZATIONS No Known Immunizations SOCIAL HISTORY Never Assessed REASON FOR VISIT Medication question PLAN OF CARE VITAL SIGNS MEDICATIONS No Known Medications RESULTS No Results [...] Mastectomy 02/01/2017 Hospitalization History surgeries Hospitalization History [facility] ED 10/06/2017
--- OUTSIDE RECORDS SUMMARY | 2018-01-10 15:44 | XMS REPORT ---
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 [place] [address]- 6826 Jun, [facility] [place] [facility] [address] [id number] [place] [address]- 9434 Jun, [facility] [place] [facility] [address] [id number] [place] [address]- 2684 Jun, [facility] [place] [facility] [address] [id number] [place] [address]- 4837 19 Jun, 2014 [facility] [place] [facility] [address] [id number] [place] [address]- 7427 18 Jun, 2014 [facility] [place] [facility] [address] [id number] [place] [address]- 7849 18 Jun, 2014 [facility] [place] [facility] [address] [id number] [place] [address]- 4869 18 Jun, 2014 [facility] [place] [facility] [address] [id number] [place] [address]- 3935 18 Jun, 2014 [facility] [place] [facility] [address] [id number] [place] [address]- 6448 17 Jun, 2014 [facility] [place] [facility] [address] [id number] [place] [address]- 7202 17 Jun, 2014 [facility] [place] [facility] [address] [id number] [place] [address]- 1309 17 Jun, 2014 [facility] [place] [facility] [address] [id number] [place] [address]- 7561 17 Jun, 2014 [facility] [place] [facility] [address] [id number] [place] [address]- 1081 13 Jun, 2014 [facility] [place] [facility] [address] [id number] [place] [address]- 1328 13 Jun, 2014 [facility] [place] [facility] [address] [id number] [place] [address]- 2061 12 Jun, 2014 [facility] [place] [facility] [address] [id number] [place] [address]- 9844 12 Jun, 2014 [facility] [place] [facility] [address] [id number] [place] [address]- 1723 10 Jun, 2014 [facility] [place] [facility] [address] [id number] [place] [address]- 5256 10 Jun, 2014 [facility] [place] [facility] [address] [id number] [place] [address]- 7710 Jun, [facility] [place] [facility] [address] [id number] [place] [address]- 7503 Jun, [facility] [place] [facility] [address] [id number] [place] [address]- 0245 Jun, [facility] [place] [facility] [address] [facility] [id number] [place] 4827 Jun, 2014 [facility] [place] [facility] [address] [id number] [place] [address]- 5983 Jun, 2014 [facility] [place] [facility] [address] [id number] [place] [address]- 3091 Jun, [facility] [place] [facility] [address] [id number] [place] [address]- 0856 Jun, [facility] [place] [facility] [address] [facility] [id number] [place] [address]- 6128 Jun, [facility] [place] [facility] [address] [facility] [id number] [place] [address]- 9125 May, 2014 [facility] [place] [facility] [address] [facility] [id number] [place] [address]- 3429 May, 2014 [facility] [place] [facility] [address] [facility] [id number] [place] [address]- 2978 May, 2014 [facility] [place] [facility] [address] [facility] [id number] [place] [address]- 2967 May, 2014 [facility] [place] [facility] [address] [facility] [id number] [address]- 4339 May, 2014 [facility] [place] [facility] [address] [facility] [id number] [place] [address]- 2131 May, 2014 [facility] [place] [facility] [address] [facility] [id number] [place] [address]- 9467 May, 2014 [facility] [place] [facility] [address] [facility] [id number] [place] [address]- 1480 May, 2014 [facility] [place] [facility] [address] [facility] [id number] [place] [address]- 9065 18 May, 2014 [facility] [place] [facility] [address] [id number] [place] [address]- 2656 May, 2014 [facility] [place] [facility] [address] [id number] [place] [address]- 2546 May, 2014 [facility] [place] [facility] [address] [id number] [place] [address] 2546 May, 2014 [facility] [place] [facility] [address] [id number] [place] [address]- 2547 May, 2014 [facility] [place] [facility] [address] [id number] [place] [address]- 0676 May, 2014 [facility] [place] [facility] [address] [facility] [id number] [place] [address]- 7273 May, 2014 [facility] [place] [facility] [address] [facility] [id number] [place] [address]- 9744 May, [facility] [place] [facility] [address] [id number] [place] [address]- 3144 Apr, [facility] [place] [facility] [address] [facility] [id number] [place] [address]- 9027 Apr, [facility] [place] [facility] [address] [facility] [id number] [place] [address]- 4918 Apr, [facility] [place] [facility] [address] [id number] [place] [address]- 5726 Apr, [facility] [place] [facility] [address] [id number] [place] [address]- 6167 Apr, [facility] [place] [facility] [address] [id number] [place] [address]- 0914 Apr, [facility] [place] [facility] [address] [id number] [place] [address]- 0496 Apr, [facility] [place] [facility] [address] [id number] [place] [address]- 1406 Apr, [facility] [place] [facility] [address] [id number] [place] [address]- 6291 Apr, [facility] [place] [facility] [address] [id number] [place] [address]- 7581 Apr, [facility] [place] [facility] [address] [id number] [place] [address]- 1354 Apr, [facility] [place] [facility] [address] [id number] [place] [address]- 8056 Apr, [facility] [place] [facility] [address] [id number] [place] [address]- 3257 Apr, [facility] [place] [facility] [address] [id number] [place] [address]- 9842 Apr, [facility] [place] [facility] [address] [id number] [place] [address]- 0482 Apr, [facility] [place] [facility] [address] [id number] [place] [address]- 7151 Mar, [facility] [place] [facility] [address] [id number] [place] [address]- 2843 Mar, [facility] [place] [facility] [address] [id number] [place] [address]- 8526 Mar, [facility] [place] [facility] [address] [id number] [place] [address]- 8394 Mar, [facility] [place] [facility] [address] [id number] [place] [address]- 7221 Mar, [facility] [place] [facility] [address] [id number] [place] [address]- 8700 Mar, [facility] [place] [facility] [address] [id number] [place] [address]- 5270 Mar, [facility] [place] [facility] [address] [id number] [place] [address]- 8621 Mar, [facility] [place] [facility] [address] [id number] [place] [address]- 3941 15 Mar, 2014 [facility] [address] [id number] [place] [address]- 7476 15 Mar, 2014 [facility] [place] [facility] [address] [id number] [place] [address]- 6283 15 Mar, 2014 [facility] [address] [id number] [place] [address]- 6820 Mar, [facility] [place] [facility] [address] [id number] [place] [address]- 1024 Mar, [facility] [address] [id number] [place] [address]- 2748 Mar, [facility] [place] [facility] [address] [id number] [place] [address]- 2908 Mar, [facility] [place] [facility] [address] [id number] [place] [address]- 3880 Mar, [facility] [address] [id number] [place] [address]- 1075 Mar, [facility] [place] [facility] [address] [id number] [place] [address]- 4861 Mar, [facility] [address] [id number] [place] [address]- 1280 Feb, [facility] [place] [facility] [address] [id number] [place] [address]- 5068 Feb, [facility] [place] [facility] [address] [id number] [place] [address]- 5705 Feb, [facility] [place] [facility] [address] [id number] [place] [address]- 9433 Feb, [facility] [place] [facility] [address] [id number] [place] [address]- 0179 Feb, [facility] [place] [facility] [address] [id number] [place] [address]- 4878 Feb, [facility] [place] [facility] [address] [id number] [place] [address]- 9372 Feb, [facility] [place] [facility] [address] [id number] [place] [address] 14[address] Feb, [facility] [place] [facility] [address] [id number] [place] [address] Jan, [facility] [place] [facility] [address] [id number] [place] [address] 270[address] Jan, [facility] [place] [facility] [address] [id number] [place] [address] Jan, [facility] [place] [facility] [address] [id number] [place] [address] 37[address] Jan, [facility] [place] [facility] [address] [id number] [place] [address] 8869 Jan, [facility] [place] [facility] [address] [id number], [place] [address] Jan, [facility] [place] [facility] [address] [id number] [place] [address] 7065 Jan, [facility] [place] [facility] [address] [id number], [place] [address] Jan, [facility] [place] [facility] [address] [id number], [place] [address] Jan, [facility] [place] [facility] [address] [id number], [place] [address] Jan, [facility] [place] [facility] [address] [id number], [place] [address] Jan, [facility] [place] [facility] [address] [id number], [place] [address] Jan, [facility] [place] [facility] [address] [id number], [place] [address] 64[address] Jan, [facility] [place] [facility] [address] [id number], [place] [address] Jan, [facility] [place] [facility] [address] [id number] [place] [address]- [address]58 16 Jan, 2014 [facility] [place] [facility] [address] [id number] [place] [address]- 5838 16 Jan, 2014 [facility] [place] [facility] [address] [id number] [place] [address]- 6446 13 Jan, 2014 [facility] [place] [facility] [address] [id number] [place] [address]- 5700 13 Jan, 2014 [facility] [place] [facility] [address] [id number] [place] [address]- 9822 29 Dec, 2013 [facility] [place] [facility] [address] [id number] [place] [address]- 2962 29 Dec, 2013 [facility] [place] [facility] [address] [id number] [place] [address]- 6103 26 Dec, 2013 [facility] [place] [facility] [address] [id number] [place] [address]- 254 26 Dec, 2013 [facility] [place] [facility] [address] [id number] [place] [address]- 1065 26 Dec, 2013 [facility] [place] [facility] [address] [id number] [place] [address]- 2541 26 Dec, 2013 [facility] [place] [facility] [address] [id number] [place] [address] 2540 23 Dec, 2013 [facility] [place] [facility] [address] [id number] [place] [address]- 254 23 Dec, 2013 [facility] [place] [facility] [address] [id number] [place] [address]- 254 22 Dec, 2013 [facility] [place] [facility] [address] [id number] [place] [address]- 2541 22 Dec, 2013 [facility] [place] [facility] [address] [id number] [place] [address]- 3593 16 Dec, 2013 [facility] [place] [facility] [address] [id number] [place] [address] 0055 16 Dec, 2013 [facility] [place] [facility] [address] [id number] [place] [address]- 6055 15 Dec, 2013 [facility] [place] [facility] [address] [id number] [place] [address]- 6076 15 Dec, 2013 [facility] [place] [facility] [address] [id number] [place] [address] 6239 09 Dec, 2013 [facility] [place] [facility] [address] [id number] [place] [address]- 6585 Dec, [facility] [place] [facility] [address] [id number] [place] [address]- 6120 Dec, [facility] [place] [facility] [address] [id number] [place] [address]157 Nov, [facility] [place] [facility] [address] [id number] [place] [address]- [address]270 Nov, [facility] [place] [facility] [address] [id number] [place] [address]- 4641 Nov, [facility] [place] [facility] [address] [id number] [place] [address]- 6262 Nov, [facility] [place] [facility] [address] [id number] [place] [address] 8951 Nov, [facility] [place] [facility] [address] [id number] [place] [address]- 0514 Nov, [facility] [place] [facility] [address] [id number] [place] [address]- 4[address] Nov, [facility] [place] [facility] [address] [id number] [place] [address]- 4068 Nov, [facility] [place] [facility] [address] [id number] [place] [address]- 6473 Nov, [facility] [place] [facility] [address] [id number] [place] [address]- 7313 Nov, [facility] [place] [facility] [address] [id number] [place] [address]- 0262 Nov, [facility] [place] [facility] [address] [id number] [place] [address] 1117 Nov, [facility] [place] [facility] [address] [id number] [place] [address]- 3922 Nov, [facility] [place] [facility] [address] [id number] [place] [address]- 1654 Nov, [facility] [place] [facility] [address] [id number] [place] [address]- 9572 Nov, [facility] [place] [facility] [address] [id number] [place] [address]- 3942 Nov, [facility] [place] [facility] [address] [id number] [place] [address]- 2830 Nov, [facility] [place] [facility] [address] [id number] [place] [address]- 6437 Nov, [facility] [place] [facility] [address] [id number] [place] [address]- 7667 Nov, [facility] [place] [facility] [address] [id number] [place] [address]- 6014 Nov, [facility] [place] [facility] [address] [id number] [place] [address]- 0160 Nov, [facility] [place] [facility] [address] [id number] [place] [address]- 6456 Oct, [facility] [place] [facility] [address] [id number] [place] [address]- 8696 Oct, [facility] [place] [facility] [address] [id number] [place] [address]- 6538 Oct, [facility] [place] [facility] [address] [address] [id number] [place] [address] Oct, [facility] [place] [facility] [address] [id number] [place] [address] 27[address] Oct, [facility] [place] [facility] [address] [id number] [place] [address] 0168 Oct, [facility] [place] [facility] [address] [id number] [place] [address] 9524 Oct, [facility] [place] [facility] [address] [id number] [place] [address] 3336 Oct, [facility] [place] [facility] [address] [id number] [place] [address] 5686 Oct, [facility] [place] [facility] [address] [id number] [place] [address] 9200 Oct, [facility] [place] [facility] [address] [id number] [place] [address] 0772 Oct, [facility] [place] [facility] [address] [id number] [place] [address] 9187 Oct, [facility] [place] [facility] [address] [id number] [place] [address] 0403 Oct, [facility] [place] [facility] [address] [id number] [place] [address] 0774 Oct, [facility] [place] [facility] [address] [id number] [place] [address] 4420 Oct, [facility] [place] [facility] [address] [id number] [place] [address] 7293 Sep, [facility] [place] [facility] [address] [id number] [place] [address] 1420 Sep, [facility] [place] [facility] [address] [id number] [place] [address] 4201 Sep, [facility] [place] [facility] [address] [id number] [place] [address] 8752 Sep, [facility] [place] [facility] [address] [id number] [place] [address]- 7083 Sep, [facility] [place] [facility] [address] [id number] [place] [address]- 9476 20 Sep, 2013 [facility] [place] [facility] [address] [id number] [place] [address]- 5126 18 Sep, 2013 [facility] [place] [facility] [address] [id number] [place] [address]- 6789 18 Sep, 2013 [facility] [place] [facility] [address] [id number] [place] [address]- 7743 17 Sep, 2013 [facility] [place] [facility] [address] [id number] [place] [address]- 5692 16 Sep, 2013 [facility] [place] [facility] [address] [id number] [place] [address]- 4864 Sep, [facility] [place] [facility] [address] [id number] [place] [address]- 9817 Sep, [facility] [place] [facility] [address] [id number] [place] [address]- 4743 Sep, [facility] [place] [facility] [address] [id number] [place] [address]- 5062 Sep, [facility] [place] [facility] [address] [id number] [place] [address]- 0317 Sep, [facility] [place] [facility] [address] [id number] [place] [address]- 9432 Sep, [facility] [place] [facility] [address] [id number] [place] [address]- 1751 Sep, [facility] [place] [facility] [address] [id number] [place] [address]- 7671 04 Sep, 2013 [facility] [place] [facility] [address] [id number] [place] [address]- 4772 03 Sep, 2013 [facility] [place] [facility] [address] [id number] [place] [address]- 3334 03 Sep, 2013 [facility] [place] [facility] [address] [id number] [place] [address]- 7396 Sep, [facility] [address] [id number] [place] [address] Sep, [facility] [place] [facility] [address] [id number] [place] [address]- 9420 August, [facility] [place] [facility] [address] [id number] [place] [address] 9994 August, [facility] [place] [facility] [address] [id number] [place] [address]- 1325 August, [facility] [place] [facility] [address] [id number] [place] [address] 5851 August, [facility] [place] [facility] [address] [id number] [place] [address]- 3321 August, [facility] [place] [facility] [address] [id number] [place] [address]- 2702 August, [facility] [place] [facility] [address] [id number] [place] [address]- 7745 August, [facility] [place] [facility] [address] [id number] [place] [address]- 2873 August, [facility] [place] [facility] [address] [id number] [place] [address]- 6083 August, [facility] [place] [facility] [address] [id number] [place] [address]- 9262 August, [facility] [place] [facility] [address] [id number] [place] [address]- 0165 August, [facility] [place] [facility] [address] [id number] [place] [address] August, [facility] [place] [facility] [address] [id number] [place] [address]- 5047 August, [facility] [place] [facility] [address] [id number] [place] [address] August, [facility] [place] [facility] [address] [id number] [place] [address]- 5312 August, [facility] [address] [id number] [place] [address]- 5772 August, [facility] [address] [id number] [place] [address]- 6349 August, [facility] [address] [id number] [place] [address]- 3386 August, [facility] [address] [id number] [place] [address]- 7177 Jul, [facility] [address] [id number] [place] [address]- 7685 Jul, [facility] [address] [id number] [place] [address]- 5121 Jul, [facility] [address] [id number] [place] [address]- 2706 Jul, [facility] [address] [id number] [place] [address]- 9665 Jul, [facility] [address] [id number] [place] [address]- 9860 Jul, [facility] [address] [id number] [place] [address]- 4253 Jul, [facility] [place] [facility] [address] [id number] [place] [address]- 4155 Jul, [facility] [address] [id number] [place] [address]- 0736 Jul, [facility] [place] [facility] [address] [id number] [place] [address]- 2052 Jul, [facility] [place] [facility] [address] [id number] [place] [address]- 5521 Jul, [facility] [place] [facility] [address] [id number] [place] [address]- 1911 Jul, [facility] [place] [facility] [address] [id number] [place] [address]- 1247 18 Jul, 2013 [facility] [place] [facility] [address] [id number] [place] [address]- 6296 17 Jul, 2013 [facility] [place] [facility] [address] [id number] [place] [address]- 8672 17 Jul, 2013 [facility] [place] [facility] [address] [id number] [place] [address]- 6009 17 Jul, 2013 [facility] [place] [facility] [address] [id number] [place] [address]- 8825 17 Jul, 2013 [facility] [place] [facility] [address] [id number] [place] [address]- 2399 16 Jul, 2013 [facility] [place] [facility] [address] [id number] [place] [address]- 7334 16 Jul, 2013 [facility] [place] [facility] [address] [id number] [place] [address]- 4235 15 Jul, 2013 [facility] [place] [facility] [address] [id number] [place] [address]- 6816 15 Jul, 2013 [facility] [place] [facility] [address] [id number] [place] [address]- 2469 14 Jul, 2013 [facility] [place] [facility] [address] [id number] [place] [address]- 0724 14 Jul, 2013 [facility] [place] [facility] [address] [id number] [place] [address]- 4079 12 Jul, 2013 [facility] [place] [facility] [address] [id number] [place] [address]- 4753 12 Jul, 2013 [facility] [place] [facility] [address] [id number] [place] [address]- 0868 03 Jul, 2013 [facility] [place] [facility] [address] [id number] [place] [address]- 3286 03 Jul, 2013 [facility] [place] [facility] [address] [id number] [place] [address]- 2966 Jul, [facility] [place] [facility] [address] [id number] [place] [address]- 2335 Jul, [facility] [place] [facility] [address] [id number] [place] [address]- 1886 17 Jun, 2013 [facility] [place] [facility] [address] [id number] [place] [address]- 1276 17 Jun, 2013 [facility] [place] [facility] [address] [id number] [place] [address]- 9884 17 Jun, 2013 [facility] [place] [facility] [address] [id number] [place] [address]- 0806 17 Jun, 2013 [facility] [place] [facility] [address] [id number] [place] [address]- 8272 Jun, [facility] [place] [facility] [address] [id number] [place] [address]- 3372 Jun, [facility] [place] [facility] [address] [id number] [place] [address]- 0013 11 Jun, 2013 [facility] [place] [facility] [address] [id number] [place] [address]- 2695 11 Jun, 2013 [facility] [place] [facility] [address] [id number] [place] [address]- 6438 10 Jun, 2013 [facility] [place] [facility] [address] [id number] [place] [address]- 0733 Jun, [facility] [place] [facility] [address] [id number] [place] [address]- 3175 Jun, [facility] [place] [facility] [address] [id number] [place] [address]- 7981 Jun, [facility] [place] [facility] [address] [id number] [place] [address]- 9940 May, [facility] [place] [facility] [address] [id number] [place] [address]- 9003 May, [facility] [place] [facility] [address] [id number] [place] [address]- 7365 May, [facility] [place] [facility] [address] [id number] [place] [address]- 9426 May, [facility] [place] [facility] [address] [id number] [place] [address]- 1186 May, [facility] [place] [facility] [address] [id number] [place] [address]- 1986 May, [facility] [place] [facility] [address] [id number] [place] [address]- 8224 May, [facility] [place] [facility] [address] [id number] [place] [address]- 5242 May, [facility] [place] [facility] [address] [id number] [place] [address]- 2499 May, [facility] [place] [facility] [address] [id number] [place] [address]- 8763 May, [facility] [place] [facility] [address] [id number] [place] [address]- 1592 Apr, [facility] [place] [facility] [address] [id number] [place] [address]- 0035 Apr, [facility] [place] [facility] [address] [id number] [place] [address]- 0300 Apr, [facility] [place] [facility] [address] [id number] [place] [address]- 7660 Apr, [facility] [place] [facility] [address] [id number] [place] [address]- 2925 Apr, [facility] [place] [facility] [address] [id number] [place] [address]- 1850 Apr, [facility] [place] [facility] [address] [id number] [place] [address]- 3577 Apr, [facility] [place] [facility] [address] [id number] [place] [address]- 5286 Apr, [facility] [address] [id number] [place] [address]- 7592 Apr, [facility] [place] [facility] [address] [id number] [place] [address]- 7051 Apr, [facility] [place] [facility] [address] [id number] [place] [address]- 7107 Mar, [facility] [place] [facility] [address] [id number] [place] [address]- 0386 Mar, [facility] [place] [facility] [address] [id number] [place] [address]- 3798 Mar, [facility] [place] [facility] [address] [id number] [place] [address]- 5670 Mar, [facility] [address] [id number] [place] [address]- 2140 Mar, [facility] [place] [facility] [address] [id number] [place] [address]- 5823 Mar, [facility] [place] [facility] [address] [id number] [place] [address]- 2816 Feb, [facility] [place] [facility] [address] [id number] [place] [address]- 8765 Feb, [facility] [place] [facility] [address] [id number] [place] [address]- 2418 Feb, [facility] [place] [facility] [address] [id number] [address]- 9465 Jan, [facility] [place] [facility] [address] [id number] [place] [address]- 5690 Jan, [facility] [place] [facility] [address] [id number] [place] [address]- 0366 Jan, [facility] [place] [facility] [address] [id number] [place] [address]- 7066 Jan, [facility] [place] [facility] [address] [id number] [place] [address]- 4688 15 Jan, 2013 [facility] [place] [facility] [address] [id number] [place] [address]- 0216 15 Jan, 2013 [facility] [place] [facility] [address] [id number] [place] [address]- 9856 Jan, [facility] [place] [facility] [address] [id number] [place] [address]- 2056 Jan, [facility] [place] [facility] [address] [id number] [place] [address]- 9708 Jan, [facility] [place] [facility] [address] [id number] [place] [address]- 3082 Jan, [facility] [place] [facility] [address] [id number] [place] [address]- 8180 30 Dec, 2012 [facility] [place] [facility] [address] [id number] [place] [address]- 6929 25 Dec, 2012 [facility] [place] [facility] [address] [id number] [place] [address]- 1887 11 Dec, 2012 [facility] [place] [facility] [address] [id number] [place] [address]- 4903 Dec, [facility] [place] [facility] [address] [id number] [place] [address] 2541 05 Dec, 2012 [facility] [place] [facility] [address] [id number] [place] [address]- 2543 04 Dec, 2012 [facility] [place] [facility] [address] [id number] [place] [address] 2543 Nov, [facility] [place] [facility] [address] [id number] [place] [address] 2546 Nov, [facility] [place] [facility] [address] [id number] [place] [address] 2544 Nov, [facility] [place] [facility] [address] [id number] [place] [address]- 7474 Nov, [facility] [place] [facility] [address] [id number] [place] [address]- 9234 Nov, [facility] [place] [facility] [address] [id number] [place] [address]- 9138 Nov, [facility] [place] [facility] [address] [id number] [place] [address]- 1176 Nov, [facility] [place] [facility] [address] [id number] [place] [address]- 9267 Nov, [facility] [place] [facility] [address] [id number] [place] [address]- 0459 Nov, [facility] [place] [facility] [address] [id number] [place] [address]- 9642 Nov, [facility] [place] [facility] [address] [id number] [place] [address]- 8794 Nov, [facility] [place] [facility] [address] [id number] [place] [address]- 1118 Nov, [facility] [place] [facility] [address] [id number] [place] [address]- 1096 Oct, [facility] [place] [facility] [address] [id number] [place] [address]- 7327 Oct, [facility] [place] [facility] [address] [id number] [place] [address]- 2165 Oct, [facility] [place] [facility] [address] [id number], [place] [address]- 5705 Sep, [facility] [place] [facility] [address] [id number] [place] [address]- 8673 Sep, [facility] [place] [facility] [address] [id number] [place] [address]- 4804 Sep, [facility] [place] [facility] [address] [id number] [place] [address]- 3919 August, [facility] [place] [facility] [address] [id number] [place] [address]- 1344 August, [facility] [address] [id number] [place] [address]- 6787 August, [facility] [address] [id number] [place] [address]- 4137 August, [facility] [address] [id number] [place] [address]- 0884 August, [facility] [address] [id number] [place] [address]- 0326 August, [facility] [address] [id number] [place] [address]- 4424 Jul, [facility] [address] [id number] [place] [address]- 7271 15 Jul, 2012 [facility] [address] [id number] [place] [address]- 3960 Jul, [facility] [address] [id number] [place] [address]- 8295 Jul, [facility] [address] [id number] [place] [address]- 4925 Jul, [facility] [address] [id number] [place] [address]- 6237 Jul, [facility] [address] [id number] [place] [address]- 7772 2012 [facility] [address] [id number] [place] [address]- 1837 20 Jun, 2012 [facility] [address] [id number] [place] [address]- 4422 18 Jun, 2012 [facility] [address] [id number] [place] [address]- 3856 14 Jun, 2012 [facility] [address] [id number] [place] [address]- 4322 Jun, [facility] [address] [id number] [place] [address]- 3205 13 May, 2012 [facility] [place] [facility] [address] [id number] [place] [address]- 4486 May, [facility] [place] [facility] [address] [id number] [place] [address] 2546 May, [facility] [place] [facility] [address] [id number] [place] [address] 2546 May, [facility] [address] [id number] [place] [address]- 3552 Apr, [facility] [place] [facility] [address] [id number] [place] [address]- 7925 Apr, [facility] [place] [facility] [address] [id number] [place] [address]- 2350 Apr, [facility] [address] [id number] [place] [address]- 2264 Mar, [facility] [place] [facility] [address] [id number] [place] [address] 2546 Mar, [facility] [place] [facility] [address] [id number] [place] [address] 2546 Mar, [facility] [place] [facility] [address] [id number] [place] [address] 2546 29 Mar, 2012 [facility] [place] [facility] [address] [id number] [place] [address] 2546 Mar, [facility] [place] [facility] [address] [id number] [place] [address] 2546 17 Mar, 2012 [facility] [place] [facility] [address] [id number] [place] [address]- 2546 17 Mar, 2012 [facility] [place] [facility] [address] [id number] [place] [address]- 2546 06 Mar, 2012 [facility] [place] [facility] [address] [id number] [place] [address]- 3981 Feb, [facility] [place] [facility] [address] [id number] [place] [address]- 5737 Feb, [facility] [place] [facility] [address] [id number] [place] [address]- 4689 Feb, [facility] [place] [facility] [address] [id number] [place] [address]- 3376 Feb, [facility] [place] [facility] [address] [id number] [place] [address] Feb, [facility] [place] [facility] [address] [id number] [place] [address] Feb, [facility] [place] [facility] [address] [id number] [place] [address] Feb, [facility] [place] [facility] [address] [id number], [place] [address] Feb, [facility] [place] [facility] [address] [id number] [place] [address] Feb, [facility] [place] [facility] [address] [id number] [place] [address] Feb, [facility] [place] [facility] [address] [id number] [place] [address] Feb, [facility] [place] [facility] [address] [id number] [place] [address] Feb, [facility] [place] [facility] [address] [id number], [place] [address] Feb, [facility] [place] [facility] [address] [id number], [place] [address] Feb, [facility] [place] [facility] [address] [id number], [place] [address] Feb, [facility] [place] [facility] [address] [id number], [place] [address] Feb, [facility] [place] [facility] [address] [id number] [place] [address] 05 Feb, 2012 [facility] [place] [facility] [address] [id number] [place] [address] 05 Feb, 2012 [facility] [place] [facility] [address] [id number] [place] [address]- [address] 23 Jan, 2012 [facility] [place] [facility] [address] [id number] [place] [address] 140[address] Jan, [facility] [place] [facility] [address] [id number] [place] [address]141 22 Jan, 2012 [facility] [place] [facility] [address] [id number] [place] [address] Jan, [facility] [place] [facility] [address] [id number] [place] [address]7 20 Jan, 2012 [facility] [place] [facility] [address] [id number] [place] [address]329 19 Jan, 2012 [facility] [place] [facility] [address] [id number] [place] [address]- 4291 18 Jan, 2012 [facility] [place] [facility] [address] [id number] [place] [address] 8887 18 Jan, 2012 [facility] [place] [facility] [address] [id number] [place] [address] 6924 15 Jan, 2012 [facility] [place] [facility] [address] [id number] [place] [address] 3333 15 Jan, 2012 [facility] [place] [facility] [address] [id number] [place] [address]- 6707 11 Jan, 2012 [facility] [place] [facility] [address] [id number] [place] [address] 3606 11 Jan, 2012 [facility] [place] [facility] [address] [id number] [place] [address] 10 Jan, 2012 [facility] [place] [facility] [address] [id number] [place] [address]121 Jan, [facility] [place] [facility] [address] [id number] [place] [address] 18[address] Jan, [facility] [place] [facility] [address] [id number] [place] [address] 1222 29 Dec, 2011 [facility] [place] [facility] [address] [id number] [place] [address] Dec, [facility] [place] [facility] [address] [id number] [place] [address] 0017 Dec, [facility] [place] [facility] [address] [id number] [place] [address] 0266 Dec, [facility] [place] [facility] [address] [id number] [place] [address]32 Nov, [facility] [place] [facility] [address] [id number] [place] [address] 7626 Nov, [facility] [place] [facility] [address] [id number] [place] [address] 2487 Nov, [facility] [place] [facility] [address] [id number] [place] [address] 1346 Nov, [facility] [place] [facility] [address] [id number] [place] [address] 1012 Nov, [facility] [place] [facility] [address] [id number], [place] [address] Nov, [facility] [place] [facility] [address] [id number], [place] [address] Nov, [facility] [place] [facility] [address] [id number] [place] [address]- 7993 Nov, [facility] [place] [facility] [address] [id number] [place] [address] 6579 Nov, [facility] [place] [facility] [address] [id number] [place] [address]- 3766 Nov, [facility] [place] [facility] [address] [id number] [place] [address]- 112[address] Nov, [facility] [place] [facility] [address] [id number] [place] [address] Oct, [facility] [place] [facility] [address] [id number] [place] [address] 0916 Oct, [facility] [place] [facility] [address] [id number] [place] [address]- 6616 Oct, [facility] [place] [facility] [address] [id number] [place] [address] 254 Oct, [facility] [place] [facility] [address] [id number] [place] [address] 8654 Oct, [facility] [place] [facility] [address] [id number] [place] [address] 3593 Oct, [facility] [place] [facility] [address] [id number] [place] [address]- 5595 Oct, [facility] [place] [facility] [address] [id number] [place] [address] 6490 Oct, [facility] [place] [facility] [address] [id number] [place] [address]- 0423 Sep, [facility] [place] [facility] [address] [id number] [place] [address]- 9231 Sep, [facility] [place] [facility] [address] [id number] [place] [address] 2545 Sep, [facility] [place] [facility] [address] [id number] [place] [address] 8[address] Sep, [facility] [place] [facility] [address] [id number] [place] [address] 8469 Sep, [facility] [place] [facility] [address] [id number] [place] [address]- 9193 Sep, [facility] [place] [facility] [address] [id number] [place] [address]- 0485 Sep, [facility] [place] [facility] [address] [id number] [place] [address] 9894 August, [facility] [address] [id number] [place] [address]- 0898 August, [facility] [address] [id number] [place] [address] 75[address] August, [facility] [address] [id number] [place] [address]- 4490 August, [facility] [address] [id number] [place] [address] August, [facility] [address] [id number] [place] [address]- 9606 August, [facility] [address] [id number] [place] [address] 0084 August, [facility] [address] [id number] [place] [address]- 8171 August, [facility] [address] [id number] [place] [address]- 1005 Jul, [facility] [address] [id number] [place] [address]- 5226 Jul, [facility] [address] [id number] [place] [address]- [address] Jul, [facility] [address] [id number] [place] [address]- 16[address] Jul, [facility] [address] [id number] [place] [address] 1979 05 Jul, 2011 [facility] [place] [facility] [address] [id number] [place] [address]- 66[address] 28 Jun, 2011 [facility] [address] [id number] [place] [address]- 9140 Jun, [facility] [address] [id number] [place] [address]- 8639 20 Jun, 2011 [facility] [facility] [address] [id number] [place] [address] 19 Jun, 2011 [facility] [place] [facility] [address] [id number] [place] [address] Jun, [facility] [place] [facility] [address] [facility] [id number] [place] [address] Jun, [facility] [place] [facility] [address] [id number] [place] [address] Jun, [facility] [place] [facility] [address] [id number] [place] [address] Jun, [facility] [place] [facility] [address] [facility] [id number] [place] [address] 06 Jun, 2011 [facility] [place] [facility] [address] [id number] [place] [address] 27 May, 2011 [facility] [place] [facility] [address] [facility] [id number] [place] [address] 24 May, 2011 [facility] [place] [facility] [address] [facility] [id number] [place] [address] 23 May, 2011 [facility] [place] [facility] [address] [facility] [id number] [place] [address] 23 May, 2011 [facility] [place] [facility] [address] [id number] [place] [address] 11 May, 2011 [facility] [place] [facility] [address] [facility] [id number] [place] [address] 10 May, 2011 [facility] [place] [facility] [address] [facility] [id number] [place] [address] 07 May, 2011 [facility] [place] [facility] [address] [facility] [id number] [place] [address] 06 May, 2011 [facility] [place] [facility] [address] [facility] [id number] [place] [address] Apr, [facility] [place] [facility] [address] [id number] [place] [address]78 Apr, [facility] [address] [id number] [place] [address]69 Apr, [facility] [address] [id number] [place] [address] Apr, [facility] [address] [id number] [place] [address] Apr, [facility] [address] [id number] [place] [address] Apr, [facility] [address] [id number] [place] [address] Mar, [facility] [address] [id number] [place] [address]67 Mar, [facility] [address] [id number] [place] [address] Mar, [facility] [address] [id number] [place] [address] Mar, [facility] [address] [id number] [place] [address] 15 Mar, 2011 [facility] [address] [id number] [place] [address] Mar, [facility] [address] [id number] [place] [address] Mar, [facility] [address] [id number] [place] [address] Mar, [facility] [address] [id number] [place] [address] Mar, [facility] [address] [id number] [place] [address] 0855 06 Mar, 2011 [facility] [address] [id number] [address] Mar, [facility] [place] [facility] [address] [id number] [place] [address] Mar, [facility] [place] [facility] [address] [id number] [place] [address] Mar, [facility] [place] [facility] [address] [id number] [place] [address] Feb, [facility] [place] [facility] [address] [id number] [place] [address] Feb, [facility] [place] [facility] [address] [id number] [place] [address] 6995 Feb, [facility] [place] [facility] [address] [id number] [place] [address] Feb, [facility] [place] [facility] [address] [id number] [place] [address] Feb, [facility] [place] [facility] [address] [id number] [place] [address] 89[address] Feb, [facility] [place] [facility] [address] [id number] [place] [address] Feb, [facility] [place] [facility] [address] [id number] [place] [address] Jan, [facility] [place] [facility] [address] [id number], [place] [address] Jan, [facility] [place] [facility] [address] [id number], [place] [address] Jan, [facility] [place] [facility] [address] [id number] [place] [address] Nov, [facility] [place] [facility] [address] [id number] [place] [address]- [address]26 Mar, [facility] [place] [facility] [address] [id number] [place] [address]- [address] Mar, [facility] [place] [facility] [address] [id number] [address] 20 Mar, 2010 [facility] [address] [id number] [address] Mar, [facility] [id number], [place] [address] Mar, [facility] [address] [id number], [place] [address] Feb, [facility] [id number] [address] Feb, [facility] [id number], [place] [address] 24 Feb, 2010 [facility] [id number], [place] [address] Feb, [facility] [id number], [place] [address] Feb, [facility] [address] [id number], [place] [address] Feb, IMMUNIZATIONS No Known Immunizations SOCIAL HISTORY Never Assessed REASON FOR VISIT braces PLAN OF CARE VITAL SIGNS MEDICATIONS No [...] Mastectomy 02/01/2017 Hospitalization History surgeries Hospitalization History [facility] ED 10/06/2017
--- OUTSIDE RECORDS SUMMARY | 2018-01-10 15:45 | XMS REPORT ---
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 [place] [facility] [address] [id number] [place] [address]- 2280 Jun, [facility] [place] [facility] [address] [id number] [place] [address]- 7703 Jun, [facility] [place] [facility] [address] [id number], [place] [address]- 9030 Jun, [facility] [place] [facility] [address] [id number], [place] [address]- 4057 19 Jun, 2014 [facility] [place] [facility] [address] [id number] [place] [address]- 1208 18 Jun, 2014 [facility] [place] [facility] [address] [id number] [place] [address]- 9300 18 Jun, 2014 [facility] [place] [facility] [address] [id number] [place] [address]- 0344 18 Jun, 2014 [facility] [place] [facility] [address] [id number] [place] [address]- 0098 18 Jun, 2014 [facility] [place] [facility] [address] [id number] [place] [address]- 5536 17 Jun, 2014 [facility] [place] [facility] [address] [id number] [place] [address]- 8086 17 Jun, 2014 [facility] [place] [facility] [address] [id number] [place] [address]- 2138 17 Jun, 2014 [facility] [place] [facility] [address] [id number] [place] [address]- 1445 17 Jun, 2014 [facility] [place] [facility] [address] [id number] [place] [address]- 6344 13 Jun, 2014 [facility] [place] [facility] [address] [id number] [place] [address]- 0036 13 Jun, 2014 [facility] [place] [facility] [address] [id number] [place] [address]- 0482 12 Jun, 2014 [facility] [place] [facility] [address] [id number] [place] [address]- 3157 12 Jun, 2014 [facility] [place] [facility] [address] [id number] [place] [address]- 8645 10 Jun, 2014 [facility] [place] [facility] [address] [id number] [place] [address]- 3844 10 Jun, 2014 [facility] [place] [facility] [address] [id number] [place] [address]- 8203 10 Jun, 2014 [facility] [place] [facility] [address] [id number] [place] [address]- 1217 10 Jun, 2014 [facility] [place] [facility] [address] [id number] [place] [address]- 9280 06 Jun, 2014 [facility] [place] [facility] [address] [id number] [place] [address]- 5903 06 Jun, 2014 [facility] [place] [facility] [address] [id number] [place] [address]- 6594 Jun, 2014 [facility] [place] [facility] [address] [id number] [place] [address]- 3181 Jun, [facility] [place] [facility] [address] [id number] [place] [address]- 9411 Jun, [facility] [place] [facility] [address] [id number] [place] [address]- 4532 Jun, [facility] [place] [facility] [address] [id number] [place] [address]- 8151 May, 2014 [facility] [place] [facility] [address] [id number] [place] [address]- 2583 May, 2014 [facility] [place] [facility] [address] [id number] [place] [address]- 2634 May, 2014 [facility] [place] [facility] [address] [id number] [place] [address]- 3034 May, 2014 [facility] [place] [facility] [address] [id number] [place] [address]- 8495 May, 2014 [facility] [place] [facility] [address] [id number] [place] [address]- 4696 May, 2014 [facility] [place] [facility] [address] [id number] [place] [address]- 3698 May, 2014 [facility] [place] [facility] [address] [id number] [place] [address]- 4544 May, 2014 [facility] [place] [facility] [address] [id number] [place] [address]- 8738 May, 2014 [facility] [place] [facility] [address] [id number] [place] [address]- 1771 May, 2014 [facility] [place] [facility] [address] [id number] [place] [address]- 9458 May, 2014 [facility] [place] [facility] [address] [facility] [id number] [place] [address]- 6494 May, 2014 [facility] [place] [facility] [address] [id number] [place] [address]- 3950 05 May, 2014 [facility] [place] [facility] [address] [id number] [place] [address]- 3091 May, [facility] [place] [facility] [address] [id number] [place] [address]- 8036 May, [facility] [place] [facility] [address] [id number] [place] [address]- 0629 May, [facility] [place] [facility] [address] [id number] [place] [address]- 0290 Apr, [facility] [place] [facility] [address] [id number] [place] [address]- 3535 Apr, [facility] [place] [facility] [address] [id number] [place] [address]- 9833 Apr, [facility] [place] [facility] [address] [id number] [place] [address]- 1113 Apr, [facility] [place] [facility] [address] [id number] [place] [address]- 1610 Apr, [facility] [place] [facility] [address] [id number] [place] [address]- 0066 Apr, [facility] [place] [facility] [address] [id number] [place] [address]- 3610 Apr, [facility] [place] [facility] [address] [id number] [place] [address]- 7760 Apr, [facility] [place] [facility] [address] [id number] [place] [address]- 7995 Apr, [facility] [place] [facility] [address] [id number] [place] [address]- 3871 Apr, [facility] [place] [facility] [address] [id number] [place] [address]- 8679 Apr, [facility] [place] [facility] [address] [id number] [place] [address]- 1794 Apr, [facility] [place] [facility] [address] [id number] [place] [address]- 6616 Apr, [facility] [place] [facility] [address] [id number] [place] [address]- 1116 Apr, [facility] [place] [facility] [address] [id number] [place] [address]- 8622 Apr, [facility] [place] [facility] [address] [id number] [place] [address]- 7646 Mar, [facility] [place] [facility] [address] [id number] [place] [address]- 5852 Mar, [facility] [place] [facility] [address] [id number] [place] [address]- 4933 Mar, [facility] [place] [facility] [address] [id number] [place] [address]- 9545 Mar, [facility] [place] [facility] [address] [id number] [place] [address]- 9288 Mar, [facility] [place] [facility] [address] [id number] [place] [address]- 6986 Mar, [facility] [place] [facility] [address] [id number] [place] [address]- 7950 15 Mar, 2014 [facility] [place] [facility] [address] [id number] [place] [address]- 6625 15 Mar, 2014 [facility] [place] [facility] [address] [id number], [place] [address]- 7718 15 Mar, 2014 [facility] [place] [facility] [address] [id number] [place] [address]- 0276 15 Mar, 2014 [facility] [place] [facility] [address] [id number] [place] [address]- 7052 15 Mar, 2014 [facility] [place] [facility] [address] [id number] [place] [address]- 2412 15 Mar, 2014 [facility] [place] [facility] [address] [id number] [place] [address]- 0230 Mar, [facility] [place] [facility] [address] [id number] [place] [address]- 8278 Mar, [facility] [place] [facility] [address] [id number] [place] [address]- 5732 Mar, [facility] [place] [facility] [address] [id number] [place] [address]- 0121 Mar, [facility] [place] [facility] [address] [id number] [place] [address]- 7413 Mar, [facility] [place] [facility] [address] [id number] [place] [address]- 6110 Mar, [facility] [place] [facility] [address] [id number] [place] [address]- 0184 Feb, [facility] [place] [facility] [address] [id number] [place] [address]- 0736 Feb, [facility] [place] [facility] [address] [id number] [place] [address]- 6732 Feb, [facility] [place] [facility] [address] [id number] [place] [address]- 4598 Feb, [facility] [place] [facility] [address] [facility] [id number] [place] [address]- 4905 Feb, [facility] [place] [facility] [address] [id number] [place] [address]- 4338 Feb, [facility] [place] [facility] [address] [id number] [place] [address]- 5480 Feb, [facility] [place] [facility] [address] [id number] [place] 2169 Feb, [facility] [place] [facility] [address] [id number] [place] [address]- 5523 Jan, [facility] [place] [facility] [address] [id number] [place] [address]- 5907 Jan, [facility] [place] [facility] [address] [id number] [place] [address]- 9435 Jan, [facility] [place] [facility] [address] [id number] [place] [address]- 1310 Jan, [facility] [place] [facility] [address] [id number] [place] [address]- 2351 Jan, [facility] [place] [facility] [address] [id number] [place] [address]- 3544 Jan, [facility] [place] [facility] [address] [id number] [place] [address]- 3657 Jan, [facility] [place] [facility] [address] [id number] [place] [address]- 0453 Jan, [facility] [place] [facility] [address] [id number] [place] [address]- 7547 Jan, [facility] [place] [facility] [address] [id number] [place] [address]- 8279 Jan, [facility] [place] [facility] [address] [id number] [place] [address]- 8085 Jan, [facility] [place] [facility] [address] [id number] [place] [address]- 1134 Jan, [facility] [place] [facility] [address] [id number] [place] [address]- 7206 Jan, [facility] [place] [facility] [address] [id number], [place] [address]- 2252 Jan, [facility] [place] [facility] [address] [id number] [place] [address] Jan, [facility] [place] [facility] [address] [id number] [place] [address] 16 Jan, 2014 [facility] [place] [facility] [address] [id number], [place] [address] Jan, [facility] [place] [facility] [address] [id number], [place] [address] 13 Jan, 2014 [facility] [place] [facility] [address] [id number] [place] [address]46 29 Sep, 2013 [facility] [place] [facility] [address] [id number] [place] [address] 2546 29 Dec, 2013 [facility] [place] [facility] [address] [id number] [place] [address] 2546 26 Dec, 2013 [facility] [place] [facility] [address] [id number] [place] [address] 2546 26 Dec, 2013 [facility] [place] [facility] [address] [id number] [place] [address] 254 26 Dec, 2013 [facility] [place] [facility] [address] [id number] [place] [address]- [address] 26 Dec, 2013 [facility] [place] [facility] [address] [id number] [place] [address] 23 Dec, 2013 [facility] [place] [facility] [address] [id number] [place] [address]26 23 Dec, 2013 [facility] [place] [facility] [address] [id number] [place] [address] 254 22 Dec, 2013 [facility] [place] [facility] [address] [id number] [place] [address] 2542 22 Dec, 2013 [facility] [place] [facility] [address] [id number], [place] [address] 25[address] 16 Dec, 2013 [facility] [place] [facility] [address] [id number], [place] [address] 16 Dec, 2013 [facility] [place] [facility] [address] [id number], [place] [address]46 15 Dec, 2013 [facility] [place] [facility] [address] [id number] [place] [address] 2546 15 Dec, 2013 [facility] [place] [facility] [address] [id number] [place] [address]- [address]48 09 Dec, 2013 [facility] [place] [facility] [address] [id number] [place] [address] Dec, [facility] [place] [facility] [address] [id number] [place] [address] Dec, [facility] [place] [facility] [address] [id number] [place] [address] Nov, [facility] [place] [facility] [address] [id number] [place] [address] Nov, [facility] [place] [facility] [address] [id number] [place] [address] 134[address] Nov, [facility] [place] [facility] [address] [id number] [place] [address] Nov, [facility] [place] [facility] [address] [id number] [place] [address] Nov, [facility] [place] [facility] [address] [id number] [place] [address] Nov, [facility] [place] [facility] [address] [id number] [place] [address] Nov, [facility] [place] [facility] [address] [id number] [place] [address] Nov, [facility] [place] [facility] [address] [id number] [place] [address] Nov, [facility] [place] [facility] [address] [id number] [place] [address] Nov, [facility] [place] [facility] [address] [id number] [place] [address]184 Nov, [facility] [place] [facility] [address] [id number] [place] [address] Nov, [facility] [place] [facility] [address] [id number] [place] [address]- [address] Nov, [facility] [place] [facility] [address] [id number] [place] [address] Nov, [facility] [place] [facility] [address] [id number] [place] [address]- [address] Nov, [facility] [place] [facility] [address] [id number] [place] [address] Nov, [facility] [place] [facility] [address] [id number] [place] [address] Nov, [facility] [place] [facility] [address] [id number] [place] [address] Nov, [facility] [place] [facility] [address] [id number] [place] [address] Nov, [facility] [place] [facility] [address] [id number] [place] [address]- 90[address] Nov, [facility] [place] [facility] [address] [id number] [place] [address]- [address] Nov, [facility] [place] [facility] [address] [id number] [place] [address]- 9565 Oct, [facility] [place] [facility] [address] [id number] [place] [address]- [address] Oct, [facility] [place] [facility] [address] [id number] [place] [address]- [address] Oct, [facility] [place] [facility] [address] [id number] [place] [address]- [address] Oct, [facility] [place] [facility] [address] [id number] [place] [address]- [address] Oct, [facility] [place] [facility] [address] [id number] [place] [address]- [address] Oct, [facility] [place] [facility] [address] [id number] [place] [address]- [address] Oct, [facility] [place] [facility] [address] [id number] [place] [address]- [address] Oct, [facility] [place] [facility] [address] [id number] [place] [address]- [address] 15 Oct, 2013 [facility] [place] [facility] [address] [id number] [place] [address]- [address] 14 Oct, 2013 [facility] [place] [facility] [address] [id number] [place] [address]- 84[address] Oct, [facility] [place] [facility] [address] [id number] [place] [address]- [address] Oct, [facility] [place] [facility] [address] [id number] [place] [address] Oct, [facility] [place] [facility] [address] [id number] [place] [address] Oct, [facility] [place] [facility] [address] [id number] [place] [address]- 3852 Oct, [facility] [place] [facility] [address] [id number] [place] [address] 8291 Sep, [facility] [place] [facility] [address] [id number] [place] [address] 1463 Sep, [facility] [place] [facility] [address] [id number] [place] [address] 7660 Sep, [facility] [place] [facility] [address] [id number] [place] [address]- 2494 Sep, [facility] [place] [facility] [address] [id number] [place] [address]- 3446 Sep, [facility] [place] [facility] [address] [id number] [place] [address]- 9074 Sep, [facility] [place] [facility] [address] [id number] [place] [address]- 6982 Sep, [facility] [place] [facility] [address] [id number] [place] [address]- 7823 Sep, [facility] [place] [facility] [address] [id number] [place] [address]- 7045 17 Sep, 2013 [facility] [place] [facility] [address] [id number] [place] [address]- 8629 Sep, [facility] [place] [facility] [address] [id number] [place] [address]- 1911 Sep, [facility] [place] [facility] [address] [id number] [place] [address]- 5577 Sep, [facility] [place] [facility] [address] [id number] [place] [address]- 9613 Sep, [facility] [place] [facility] [address] [id number] [place] [address]- 1588 Sep, [facility] [place] [facility] [address] [id number] [place] [address]- 0263 Sep, [facility] [place] [facility] [address] [id number] [place] [address]- 4067 Sep, [facility] [place] [facility] [address] [id number] [place] [address]- 6105 Sep, [facility] [place] [facility] [address] [id number] [place] [address]- 0683 Sep, [facility] [place] [facility] [address] [id number] [place] [address]- 4649 Sep, [facility] [place] [facility] [address] [id number] [place] [address]- 2053 Sep, [facility] [place] [facility] [address] [id number] [place] [address]- 9492 Sep, [facility] [place] [facility] [address] [id number] [place] [address]- 7201 Sep, [facility] [place] [facility] [address] [id number] [place] [address]- 1046 August, [facility] [place] [facility] [address] [id number] [place] [address]- 8549 August, [facility] [place] [facility] [address] [id number] [place] [address]- 9181 August, [facility] [address] [id number] [place] [address]- 3562 August, [facility] [place] [facility] [address] [id number] [place] [address]- 6351 August, [facility] [place] [facility] [address] [id number] [place] [address]- 8487 August, [facility] [place] [facility] [address] [id number] [place] [address]- 7854 August, [facility] [place] [facility] [address] [id number] [place] [address]- 2199 August, [facility] [place] [facility] [address] [id number] [place] [address]- 8103 August, [facility] [place] [facility] [address] [id number] [place] [address]- 3661 August, [facility] [place] [facility] [address] [id number] [place] [address]- 6971 August, [facility] [place] [facility] [address] [id number] [place] [address]- 5400 August, [facility] [place] [facility] [address] [id number] [place] [address]- 9262 August, [facility] [place] [facility] [address] [id number] [place] [address]- 9112 August, [facility] [place] [facility] [address] [id number] [place] [address]- 2067 August, [facility] [place] [facility] [address] [id number] [place] [address]- 8144 August, [facility] [place] [facility] [address] [id number] [place] [address]- 9105 August, [facility] [place] [facility] [address] [id number] [place] [address]- 9188 August, [facility] [place] [facility] [address] [id number] [place] [address]- 6397 Jul, [facility] [place] [facility] [address] [id number] [place] [address]- 8639 Jul, [facility] [place] [facility] [address] [id number] [place] [address]- 1091 Jul, [facility] [place] [facility] [address] [id number] [place] [address]- 4788 Jul, [facility] [place] [facility] [address] [id number] [place] [address]- 5358 Jul, [facility] [place] [facility] [address] [id number] [place] [address]- 7189 Jul, [facility] [place] [facility] [address] [id number] [place] [address]- 8368 Jul, [facility] [place] [facility] [address] [id number] [place] [address]- 7027 Jul, [facility] [place] [facility] [address] [id number] [place] [address]- 0647 Jul, [facility] [place] [facility] [address] [id number] [place] [address]- 1999 Jul, [facility] [place] [facility] [address] [id number] [place] [address]- 4157 Jul, [facility] [place] [facility] [address] [id number] [place] [address]- 7905 Jul, [facility] [place] [facility] [address] [id number] [place] [address]- 1755 Jul, [facility] [place] [facility] [address] [id number] [place] [address]- 0229 Jul, [facility] [place] [facility] [address] [id number] [place] [address]- 8667 Jul, [facility] [place] [facility] [address] [id number] [place] [address]- 0932 Jul, [facility] [place] [facility] [address] [id number] [place] [address]- 9829 17 Jul, 2013 [facility] [place] [facility] [address] [id number] [place] [address]- 6595 16 Jul, 2013 [facility] [place] [facility] [address] [id number] [place] [address]- 9342 16 Jul, 2013 [facility] [place] [facility] [address] [id number] [place] [address]- 0226 15 Jul, 2013 [facility] [place] [facility] [address] [id number] [place] [address]- 5340 15 Jul, 2013 [facility] [place] [facility] [address] [id number] [place] [address]- 3537 14 Jul, 2013 [facility] [place] [facility] [address] [id number] [place] [address]- 5721 Jul, [facility] [place] [facility] [address] [id number] [place] [address]- 0709 Jul, [facility] [place] [facility] [address] [id number] [place] [address]- 5703 Jul, [facility] [place] [facility] [address] [id number] [place] [address]- 9318 Jul, [facility] [place] [facility] [address] [id number] [place] [address]- 2687 Jul, [facility] [place] [facility] [address] [id number] [place] [address]- 0932 Jul, [facility] [place] [facility] [address] [id number] [place] [address]- 8176 Jul, [facility] [place] [facility] [address] [id number] [place] [address]- 7241 Jun, [facility] [place] [facility] [address] [id number] [place] [address]- 1264 Jun, [facility] [place] [facility] [address] [id number] [place] [address]- 0869 17 Jun, 2013 [facility] [place] [facility] [address] [id number] [place] [address]- 1939 17 Jun, 2013 [facility] [place] [facility] [address] [id number] [place] [address]- 7811 Jun, [facility] [place] [facility] [address] [id number] [place] [address]- 1883 Jun, [facility] [place] [facility] [address] [id number] [place] [address]- 2129 Jun, [facility] [place] [facility] [address] [id number] [place] [address]- 3128 Jun, [facility] [place] [facility] [address] [id number] [place] [address]- 1277 Jun, [facility] [place] [facility] [address] [facility] [id number] [place] [address]- 4324 Jun, [facility] [place] [facility] [address] [id number] [place] [address]- 8380 Jun, [facility] [place] [facility] [address] [id number] [place] [address]- 9666 Jun, [facility] [place] [facility] [address] [facility] [id number] [place] [address]- 5659 May, [facility] [place] [facility] [address] [id number] [place] [address]- 2645 May, [facility] [place] [facility] [address] [id number] [place] [address]- 0097 May, [facility] [place] [facility] [address] [id number] [place] [address]- 4385 May, [facility] [place] [facility] [address] [id number] [place] [address]- 1679 May, [facility] [place] [facility] [address] [facility] [id number] [place] [address]- 9230 May, [facility] [place] [facility] [address] [id number] [place] [address]- 5066 May, [facility] [place] [facility] [address] [id number] [place] [address]- 4422 May, [facility] [place] [facility] [address] [id number] [place] [address]- 8626 May, [facility] [place] [facility] [address] [id number] [place] [address]- 1817 May, [facility] [place] [facility] [address] [id number] [place] [address]- 9194 Apr, [facility] [place] [facility] [address] [id number] [place] [address]- 0444 Apr, [facility] [place] [facility] [address] [id number] [place] [address]- 6052 Apr, [facility] [place] [facility] [address] [id number] [place] [address]- 9506 Apr, [facility] [place] [facility] [address] [id number] [place] [address]- 9822 Apr, [facility] [place] [facility] [address] [id number] [place] [address]- 4843 Apr, [facility] [place] [facility] [address] [id number] [place] [address]- 8515 Apr, [facility] [place] [facility] [address] [id number] [place] [address]- 9269 Apr, [facility] [place] [facility] [address] [id number] [place] [address]- 5412 Apr, [facility] [place] [facility] [address] [id number] [place] [address]- 5431 Apr, [facility] [place] [facility] [address] [id number] [place] [address]- 1885 Mar, [facility] [place] [facility] [address] [id number], [place] [address]- 1367 Mar, [facility] [place] [facility] [address] [id number] [place] [address]- 3899 Mar, [facility] [place] [facility] [address] [id number] [place] [address]- 9459 Mar, [facility] [place] [facility] [address] [id number] [place] [address]- 3596 Mar, [facility] [place] [facility] [address] [id number] [place] [address]- 0343 Mar, [facility] [place] [facility] [address] [id number] [place] [address]- 2925 Feb, [facility] [place] [facility] [address] [id number] [place] [address]- 8488 Feb, [facility] [place] [facility] [address] [facility] [id number] [place] [address]- 7018 Feb, [facility] [place] [facility] [address] [id number] [place] [address]- 8443 Jan, [facility] [place] [facility] [address] [facility] [id number] [place] [address]- 1780 30 Jan, 2013 [facility] [place] [facility] [address] [facility] [id number] [place] [address]- 2282 Jan, [facility] [place] [facility] [address] [id number], [place] [address]- 4162 28 Jan, 2013 [facility] [place] [facility] [address] [id number], [place] [address]- 8329 15 Jan, 2013 [facility] [place] [facility] [address] [id number] [place] [address]- 1139 15 Jan, 2013 [facility] [place] [facility] [address] [facility] [id number], [place] [address]- 9137 Jan, [facility] [place] [facility] [address] [facility] [id number], [place] [address]- 2040 11 Jan, 2013 [facility] [place] [facility] [address] [id number] [place] [address]- 9146 Jan, [facility] [place] [facility] [address] [id number] [place] [address]- 6995 Jan, [facility] [place] [facility] [address] [id number] [place] [address]- 3286 30 Dec, 2012 [facility] [place] [facility] [address] [id number] [place] [address]- 3436 25 Dec, 2012 [facility] [place] [facility] [address] [id number] [place] [address]- 6105 11 Dec, 2012 [facility] [place] [facility] [address] [id number] [place] [address]- 7151 Dec, 2012 [facility] [place] [facility] [address] [id number] [place] [address]- 3839 05 Dec, 2012 [facility] [place] [facility] [address] [id number] [place] [address]- 2728 Dec, 2012 [facility] [place] [facility] [address] [id number] [place] [address]- 3571 Nov, [facility] [place] [facility] [address] [id number] [place] [address]- 6931 Nov, [facility] [place] [facility] [address] [id number] [place] [address]- 3144 Nov, [facility] [place] [facility] [address] [id number] [place] [address]- 6579 Nov, [facility] [place] [facility] [address] [id number] [place] [address] 2542 Nov, [facility] [place] [facility] [address] [id number] [place] [address]- 6926 Nov, [facility] [place] [facility] [address] [id number] [place] [address]- 2544 Nov, [facility] [place] [facility] [address] [id number] [place] [address]- 8793 Nov, [facility] [address] [id number] [place] [address]- 5519 Nov, [facility] [place] [facility] [address] [id number] [place] [address]- 2867 Nov, [facility] [place] [facility] [address] [id number] [place] [address]- 1147 Nov, [facility] [place] [facility] [address] [id number] [place] [address]- 8544 Nov, [facility] [place] [facility] [address] [id number] [place] [address]- 9992 Oct, [facility] [place] [facility] [address] [id number] [place] [address]- 5352 Oct, [facility] [place] [facility] [address] [id number] [place] [address]- 5313 Oct, [facility] [place] [facility] [address] [id number] [place] [address]- 0249 Sep, [facility] [place] [facility] [address] [id number] [place] [address]- 2169 Sep, [facility] [place] [facility] [address] [id number] [place] [address]- 2126 Sep, [facility] [place] [facility] [address] [id number] [place] [address]- 7985 August, [facility] [place] [facility] [address] [id number] [place] [address]- 8702 August, [facility] [place] [facility] [address] [id number] [place] [address]- 8405 August, [facility] [place] [facility] [address] [id number] [place] [address]- 0908 August, [facility] [place] [facility] [address] [id number] [place] [address]- 6490 August, [facility] [place] [facility] [address] [id number] [place] [address]- 8563 August, [facility] [address] [id number] [place] [address]- 0785 30 Jul, 2012 [facility] [place] [facility] [address] [id number] [place] [address]- 9287 15 Jul, 2012 [facility] [address] [id number] [place] [address]- 2141 Jul, [facility] [place] [facility] [address] [id number] [place] [address]- 1988 Jul, [facility] [address] [id number] [place] [address]- 9602 Jul, [facility] [place] [facility] [address] [id number] [place] [address]- 5123 Jul, [facility] [address] [id number] [place] [address]- 4030 2012 [facility] [address] [id number] [place] [address]- 8671 20 Jun, 2012 [facility] [address] [id number] [place] [address]- 8043 18 Jun, 2012 [facility] [address] [id number] [place] [address]- 4043 14 Jun, 2012 [facility] [place] [facility] [address] [id number] [place] [address]- 8174 04 Jun, 2012 [facility] [place] [facility] [address] [id number] [place] [address]- 4596 May, [facility] [place] [facility] [address] [id number] [place] [address]- 2628 12 May, 2012 [facility] [place] [facility] [address] [id number] [place] [address]- 2009 May, [facility] [place] [facility] [address] [id number] [place] [address]- 7667 08 May, 2012 [facility] [address] [id number] [place] [address]- 8606 Apr, [facility] [place] [facility] [address] [id number] [place] [address]- 3733 Apr, [facility] [place] [facility] [address] [id number] [place] [address]- 6770 Apr, [facility] [place] [facility] [address] [id number] [place] [address]- 6795 Mar, [facility] [place] [facility] [address] [id number] [place] [address]- 0453 Mar, [facility] [place] [facility] [address] [id number] [place] [address]- 2901 Mar, [facility] [place] [facility] [address] [id number] [place] [address]- 0558 Mar, [facility] [place] [facility] [address] [id number] [place] [address]- 5987 Mar, [facility] [place] [facility] [address] [id number] [place] [address]- 5597 Mar, [facility] [place] [facility] [address] [id number] [place] [address]- 9839 Mar, [facility] [place] [facility] [address] [id number] [place] [address]- 8036 Mar, [facility] [place] [facility] [address] [id number], [place] [address]- 2126 Feb, [facility] [place] [facility] [address] [id number] [place] [address]- 9964 Feb, [facility] [place] [facility] [address] [id number] [place] [address]- 3481 Feb, [facility] [place] [facility] [address] [id number] [place] [address]- 2315 Feb, [facility] [place] [facility] [address] [id number], [place] [address]- 7573 Feb, [facility] [place] [facility] [address] [id number] [place] [address]- 4941 Feb, [facility] [place] [facility] [address] [id number] [place] [address]- 8449 Feb, [facility] [place] [facility] [address] [facility] [id number] [place] [address]- 4385 Feb, [facility] [place] [facility] [address] [id number] [place] [address]- 0881 Feb, [facility] [place] [facility] [address] [id number] [place] [address]- 1427 Feb, [facility] [place] [facility] [address] [facility] [id number] [place] [address]- 8759 Feb, [facility] [place] [facility] [address] [id number] [place] [address]- 8611 Feb, [facility] [place] [facility] [address] [facility] [id number] [place] [address]- 4636 Feb, [facility] [place] [facility] [address] [facility] [id number] [place] [address]- 4738 Feb, [facility] [place] [facility] [address] [facility] [id number] [place] [address]- 2854 Feb, [facility] [place] [facility] [address] [facility] [id number], [place] [address]- 2881 Feb, [facility] [place] [facility] [address] [facility] [id number], [place] [address]- 5139 Feb, [facility] [place] [facility] [address] [facility] [id number], [place] [address] Feb, [facility] [place] [facility] [address] [facility] [id number] [place] [address] Jan, [facility] [place] [facility] [address] [facility] [id number], [place] [address] Jan, [facility] [place] [facility] [address] [id number] [place] [address] 22 Jan, 2011 [facility] [place] [facility] [address] [id number] [place] [address]90 20 Jan, 2012 [facility] [place] [facility] [address] [id number] [place] [address] 20 Jan, 2012 [facility] [place] [facility] [address] [id number] [place] [address]696 19 Jan, 2012 [facility] [place] [facility] [address] [id number] [place] [address] 1831 18 Jan, 2012 [facility] [place] [facility] [address] [id number] [place] [address]40 18 Jan, 2012 [facility] [place] [facility] [address] [id number] [place] [address]308 15 Jan, 2012 [facility] [place] [facility] [address] [id number] [place] [address] 6361 15 Jan, 2012 [facility] [place] [facility] [address] [id number] [place] [address] 9402 11 Jan, 2012 [facility] [place] [facility] [address] [id number] [place] [address] 5145 11 Jan, 2012 [facility] [place] [facility] [address] [facility] [id number] [place] [address] 1739 10 Jan, 2012 [facility] [place] [facility] [address] [id number] [place] [address] 7526 09 Jan, 2012 [facility] [place] [facility] [address] [id number] [place] [address]- 9904 02 Jan, 2012 [facility] [place] [facility] [address] [id number] [place] [address] 9826 29 Dec, 2011 [facility] [place] [facility] [address] [id number] [place] [address]- 1796 28 Dec, 2011 [facility] [place] [facility] [address] [id number] [place] [address] Dec, [facility] [place] [facility] [address] [id number] [place] [address]344 Dec, [facility] [place] [facility] [address] [id number] [place] [address] Nov, [facility] [place] [facility] [address] [id number] [place] [address] 3910 Nov, [facility] [place] [facility] [address] [id number] [place] [address] 2264 Nov, [facility] [place] [facility] [address] [id number] [place] [address] 5217 Nov, [facility] [place] [facility] [address] [id number] [place] [address] 6393 Nov, [facility] [place] [facility] [address] [id number] [place] [address] 3982 Nov, [facility] [place] [facility] [address] [id number] [place] [address] 3183 Nov, [facility] [place] [facility] [address] [id number] [place] [address] 8422 Nov, [facility] [place] [facility] [address] [id number] [place] [address] 2141 Nov, [facility] [place] [facility] [address] [id number] [place] [address] 4254 Nov, [facility] [place] [facility] [address] [id number] [place] [address] 4520 Nov, [facility] [place] [facility] [address] [id number] [place] [address]328 Oct, [facility] [place] [facility] [address] [id number] [place] [address] 7150 Oct, [facility] [place] [facility] [address] [id number] [place] [address] 4660 Oct, [facility] [place] [facility] [address] [id number] [place] [address] 1516 Oct, [facility] [place] [facility] [address] [id number] [place] [address] 7872 Oct, [facility] [place] [facility] [address] [id number] [place] [address] 4446 Oct, [facility] [place] [facility] [address] [id number] [place] [address] 2826 Oct, [facility] [place] [facility] [address] [id number] [place] [address] 9690 Oct, [facility] [place] [facility] [address] [id number] [place] [address] 7151 Sep, [facility] [place] [facility] [address] [id number] [place] [address] 6888 Sep, [facility] [place] [facility] [address] [id number] [place] [address] 4784 Sep, [facility] [place] [facility] [address] [id number] [place] [address] 6696 Sep, [facility] [place] [facility] [address] [id number] [place] [address] 7681 Sep, [facility] [place] [facility] [address] [id number] [place] [address] 5884 Sep, [facility] [place] [facility] [address] [id number] [place] [address] 5[address] Sep, [facility] [place] [facility] [address] [id number] [place] [address] 1324 August, [facility] [place] [facility] [address] [id number] [place] [address] 2673 August, [facility] [place] [facility] [address] [id number] [place] [address] 2794 August, [facility] [place] [facility] [address] [id number] [place] [address] 5573 August, [facility] [place] [facility] [address] [id number] [place] [address]- 5597 August, [facility] [address] [id number] [place] [address] August, [facility] [place] [facility] [address] [id number] [place] [address] 59[address] August, [facility] [address] [id number] [place] [address] 5587 August, [facility] [address] [id number] [place] [address] 4481 Jul, [facility] [place] [facility] [address] [id number] [place] [address] 5143 17 Jul, 2011 [facility] [address] [id number] [place] [address] 2168 Jul, [facility] [address] [id number] [place] [address] 3680 Jul, [facility] [address] [id number] [place] [address] 6910 Jul, [facility] [address] [id number] [place] [address]- [address]453 28 Jun, [address] [facility] [place] [facility] [address] [id number] [place] [address]451 2011 [facility] [place] [facility] [address] [id number] [place] [address]- 5863 20 Jun, 2011 [facility] [place] [facility] [address] [id number] [place] [address]- 7100 19 Jun, 2011 [facility] [place] [facility] [address] [id number] [place] [address]- 2410 12 Jun, 2011 [facility] [place] [facility] [address] [id number] [place] [address] 8215 Jun, [facility] [place] [facility] [address] [id number] [place] [address]- 5756 Jun, [facility] [address] [id number] [place] [address]- 4455 Jun, [facility] [address] [id number] [place] [address]- 2396 Jun, [facility] [address] [address] [id number] [place] [address] May, [facility] [address] [id number] [place] [address] May, [facility] [address] [id number] [place] [address] May, [facility] [address] [id number] [place] [address] May, [facility] [address] [id number] [place] [address] May, [facility] [address] [id number] [place] [address] May, [facility] [address] [id number] [place] [address] May, [facility] [address] [facility] [id number] [place] [address] May, [facility] [address] [facility] [id number] [place] [address] Apr, [facility] [place] [facility] [address] [id number] [place] [address] Apr, [facility] [place] [facility] [address] [id number] [place] [address] Apr, [facility] [place] [facility] [address] [id number] [place] [address] Apr, [facility] [address] [facility] [id number], [place] [address] Apr, [facility] [address] [id number] [place] [address] 05 Apr, 2011 [facility] [address] [id number] [place] [address] Mar, [facility] [place] [facility] [address] [id number] [place] [address] Mar, [facility] [place] [facility] [address] [id number] [place] [address] Mar, [facility] [address] [id number] [place] [address] Mar, [facility] [place] [facility] [address] [id number] [place] [address] 15 Mar, 2011 [facility] [address] [id number] [place] [address] Mar, [facility] [place] [facility] [address] [id number] [place] [address] Mar, [facility] [place] [facility] [address] [id number] [place] [address] Mar, [facility] [place] [facility] [address] [id number] [place] [address] Mar, [facility] [place] [facility] [address] [id number] [place] [address] Mar, [facility] [place] [facility] [address] [id number] [place] [address] Mar, [facility] [place] [facility] [address] [id number] [place] [address] Mar, [facility] [place] [facility] [address] [id number] [place] [address] Mar, [facility] [place] [facility] [address] [id number] [place] [address] Feb, [facility] [place] [facility] [address] [id number] [place] [address] Feb, [facility] [place] [facility] [address] [id number] [place] [address] 17 Feb, 2011 [facility] [place] [facility] [address] [id number] [place] [address] Feb, [facility] [place] [facility] [address] [id number] [place] [address] Feb, [facility] [place] [facility] [address] [id number] [place] [address] Feb, [facility] [place] [facility] [address] [id number] [place] [address] Feb, [facility] [place] [facility] [address] [id number] [place] [address] Jan, [facility] [place] [facility] [address] [id number] [place] [address] Jan, [facility] [place] [facility] [address] [id number] [place] [address] Jan, [facility] [place] [facility] [address] [id number] [place] [address] Nov, [facility] [place] [facility] [address] [id number] [place] [address] Mar, [facility] [place] [facility] [address] [id number], [place] [address] Mar, [facility] [place] [facility] [address] [id number], [place] [address] 20 Mar, 2010 [facility] [place] [facility] [address] [id number] [place] [address] 13 Mar, 2010 [facility] [place] [facility] [address] [id number] [place] [address] 07 Mar, 2010 [facility] [place] [facility] [address] [id number] [place] [address] 30 Feb, 2010 [facility] [place] [facility] [address] [facility] [id number] [place] [address] 30 Feb, 2010 [facility] [address] [facility] [id number], [place] [address] 24 Feb, 2010 [facility] [address] [facility] [id number], [place] [address] 19 Feb, 2010 [facility] [address] [facility] [id number], [place] [address] 19 Feb, 2010 [facility] [address] [facility] [id number] [place] [address] 15 Feb, 2010 IMMUNIZATIONS No Known Immunizations [...] 02/01/2017 Hospitalization History surgeries Hospitalization History [facility] ED 10/06/2017
--- NOTE | 2018-01-10 15:46 | ED Upper Extremity ---
General Stated Complaint: RING STUCK ON L HAND RING FINGER Source: patient Exam Limitations: no limitations History of Present Illness Date Seen by Provider: Jan 10, 2018 Time Seen by Provider: 15:44 Initial Comments To ER with a ring stuck on the left ring finger for 3 days. She put on 3 days ago and is unable to get it off. Onset: other Severity: moderate Pain/Injury Location: left 4th finger Modifying Factors: Worse With Movement Allergies and Home Medications Allergies Coded Allergies: fluoxetine (Unverified Allergy, Mild, 03/05/17) zolpidem (Verified Allergy, Unknown, "MAKES ME ANGRY LIKE A BEAR", 05/09/15 ) fluticasone (Verified Adverse Reaction, Unknown, DOESN'T WORK, 05/09/15) gabapentin (Verified Adverse Reaction, Unknown, NOT EFFECTIVE, 05/09/15) salmeterol (Verified Adverse Reaction, Unknown, DOESN'T WORK, 05/09/15) Uncoded Allergies: PROPANOLOL (Adverse Reaction, Unknown, NOT EFFECTIVE, 05/09/15) Home Medications Amitriptyline Hcl 100 Mg Tablet, 200 MG PO HS, (Reported) TAKE 2 (100MG) TABS Budesonide/Formoterol Fumarate 10.2 Gm Hfa.aer.ad, 2 PUFF IH BID, (Reported) Cephalexin 500 Mg Capsule, 500 MG PO QID Prescribed by: MAEVE HARRISON on 08/08/17345 Clindamycin HCl 300 Mg Capsule, 300 MG PO QID Prescribed by: KENDY SELLERS on 03/05/172318 Famotidine 40 Mg Tablet, 40 MG PO DAILY Prescribed by: KENDY SELLERS on 02/11/171946 Hydroxyzine Pamoate 50 Mg Capsule, 50 MG PO Q6H Prescribed by: KENDY SELLERS on 02/11/171946 Lactobacillus Acidophilus 1 Each Capsule, 2 EACH PO QID Prescribed by: KENDY SELLERS on 03/05/172318 Mometasone Furoate 15 Gm Cream..g., 0 TP TID Prescribed by: KENDY SELLERS on 02/11/171946 Mometasone/Formoterol 13 Gm Hfa.aer.ad, 1 PUFF IH BID PRN for SHORTNESS OF BREATH, (Reported) PRN SOB Sulfamethoxazole/Trimethoprim 1 Each Tablet, 1 EACH PO BID Prescribed by: MAEVE HARRISON on 12/22/17 0239 Patient Home Medication List Home Medication List Reviewed: Yes Review of Systems Constitutional: see HPI EENTM: see HPI Respiratory: no symptoms reported Cardiovascular: no symptoms reported Genitourinary: no symptoms reported Musculoskeletal: see HPI Skin: no symptoms reported Psychiatric/Neurological: No Symptoms Reported Past Aqultvf-Wsidyd-Fozrgg Hx Patient Social History Type Used: Cigarettes Former Smoker, Quit: Apr 19, 2005 Recent Foreign Travel: No Contact w/Someone Who Travel: No Recent Hopitalizations: No Immunizations Up To Date Tetanus Booster (TDap): More than 5yrs Date of Pneumonia Vaccine: Jun 21, 2013 Date of Influenza Vaccine: Jan 17, 2015 Seasonal Allergies Seasonal Allergies: Yes Past Medical History Surgeries: Yes Appendectomy, Bladder Surgery, Breast, Section, Hysterectomy, Tubal Ligation Respiratory: Yes (USES O2 AT HOME PRN) Sleep Apnea, COPD Cardiac: Yes Hypertension Neurological: Yes (restless leg syndrome) 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 Disorders: Yes Female 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 Disorders: Menstrual Problems 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 Sexually Transmitted Disease: No HIV/AIDS: No Genitourinary: Yes Bladder Infection, UTI-Chronic Gastrointestinal: Yes Gastroesophageal Reflux, Esophagitis, Hiatal Hernia Musculoskeletal: Yes (BULGING DISK IN BACK; RESTLESS LEG SYNDROME) Degenerate Disk Disease, Arthritis, Chronic Back Pain Endocrine: No HEENT: Yes Cataract Cancer: Yes Breast Did You Recieve Any Treatments: Yes What Type of Treatment Did You: Surgical Intervention Psychosocial: Yes (EXTENSIVE PSYCH ISSUES) ADD/ADHD, Sleep Difficulties, Anxiety, Suicide Attempts, Bipolar, Depression Integumentary: Yes (YEAST INFECTION UNDER ABDOMINAL FOLD) Blood Disorders: No Adverse Reaction/Blood Tranf: No Family Medical History Cancer GRANDPARENTS Congestive heart failure GRANDPARENTS Family history: Cardiovascular disease GRANDPARENTS Family history: Hypertension GRANDPARENTS Heart disease GRANDPARENTS Myocardial infarction GRANDPARENTS Stroke 03 MOTHER, Onset:60 years & older No Family History of: Abdominal aortic aneurysm Family history: Allergy Family history: Alzheimer's disease Family history: Asthma Family history: Diabetes mellitus Family history: Gastrointestinal disease Family history: Thyroid disorder Hereditary disease Seizure disorder Physical Exam Vital Signs Capillary Refill : Height, Weight, BMI Height: 4'8.00" Weight: 198lbs. 0.0oz. 89.357062hv; 54.86 BMI Method:Stated General Appearance: WD/WN, no apparent distress HEENT: PERRL/EOMI, normal ENT inspection Shoulder: normal inspection, non-tender Elbow/Forearm: normal inspection, non-tender, Left Hand: normal inspection, Left, soft tissue tenderness (tenderness to the left ring finger where she has tried to manipulate the ring off. There was no swelling distally, normal circulation distally and capillary refill. We attempted to remove the ring with straining but ultimately had to remove the ring via ring cutter. The ring was then given back to her and she'll be discharged) Skin: normal color, warm/dry Departure Impression Primary Impression: removal of ring Disposition: HOME, SELF-CARE Condition: Stable Departure-Patient Inst. Decision time for Depature: 15:45 Referrals: [facility] (PCP/Family) Primary Care Physician Patient Instructions: Hand Pain MARTHA TIPTON APRN Jan 10, 2018 15:46
--- OUTSIDE RECORDS SUMMARY | 2018-01-10 15:47 | XMS REPORT ---
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 [facility] [address] [id number] [address]- 1181 19 Jun, 2014 [facility] [place] [facility] [address] [id number] [place] [address]- 0570 18 Jun, 2014 [facility] [place] [facility] [address] [id number] [place] [address]- 6424 18 Jun, 2014 [facility] [place] [facility] [address] [id number] [place] [address]- 4568 18 Jun, 2014 [facility] [place] [facility] [address] [id number] [place] [address]- 4925 18 Jun, 2014 [facility] [place] [facility] [address] [id number] [place] [address]- 7896 17 Jun, 2014 [facility] [place] [facility] [address] [id number] [place] [address]- 9786 17 Jun, 2014 [facility] [place] [facility] [address] [id number] [place] [address]- 0204 17 Jun, 2014 [facility] [place] [facility] [address] [id number] [place] [address]- 5002 17 Jun, 2014 [facility] [place] [facility] [address] [id number] [place] [address]- 9331 13 Jun, 2014 [facility] [place] [facility] [address] [id number] [place] [address]- 0099 13 Jun, 2014 [facility] [place] [facility] [address] [id number] [place] [address]- 7310 12 Jun, 2014 [facility] [place] [facility] [address] [id number] [place] [address]- 3919 12 Jun, 2014 [facility] [place] [facility] [address] [id number] [place] [address]- 4586 10 Jun, 2014 [facility] [place] [facility] [address] [id number] [place] [address]- 4417 10 Jun, 2014 [facility] [place] [facility] [address] [id number] [place] [address]- 2691 10 Jun, 2014 [facility] [place] [facility] [address] [id number] [place] [address]- 6489 10 Jun, 2014 [facility] [place] [facility] [address] [id number] [place] [address]- 7080 06 Jun, 2014 [facility] [place] [facility] [address] [id number] [place] [address]- 7084 06 Jun, 2014 [facility] [place] [facility] [address] [id number] [place] [address]- 4543 Jun, 2014 [facility] [place] [facility] [address] [id number] [place] [address]- 5239 Jun, [facility] [place] [facility] [address] [id number] [place] [address]- 7233 Jun, [facility] [place] [facility] [address] [id number] [place] [address]- 6186 Jun, [facility] [place] [facility] [address] [id number] [place] [address]- 6376 May, 2014 [facility] [place] [facility] [address] [id number] [place] [address]- 5036 May, 2014 [facility] [place] [facility] [address] [id number] [place] [address]- 6823 May, 2014 [facility] [place] [facility] [address] [id number] [place] [address]- 3885 May, 2014 [facility] [place] [facility] [address] [id number] [place] [address]- 1293 May, 2014 [facility] [place] [facility] [address] [id number] [place] [address]- 9809 May, 2014 [facility] [place] [facility] [address] [id number] [place] [address]- 3756 May, 2014 [facility] [place] [facility] [address] [id number] [place] [address]- 7070 May, 2014 [facility] [place] [facility] [address] [id number] [place] [address]- 4627 May, 2014 [facility] [place] [facility] [address] [id number] [place] [address]- 3752 May, 2014 [facility] [place] [facility] [address] [id number] [place] [address]- 5132 May, 2014 [facility] [place] [facility] [address] [facility] [id number] [place] [address]- 2102 May, 2014 [facility] [place] [facility] [address] [id number] [place] [address]- 5490 05 May, 2014 [facility] [place] [facility] [address] [id number] [place] [address]- 2470 May, [facility] [place] [facility] [address] [id number] [place] [address]- 6356 May, [facility] [place] [facility] [address] [id number] [place] [address]- 2945 May, [facility] [place] [facility] [address] [id number] [place] [address]- 0599 Apr, [facility] [place] [facility] [address] [id number] [place] [address]- 4490 Apr, [facility] [place] [facility] [address] [id number] [place] [address]- 5062 Apr, [facility] [place] [facility] [address] [id number] [place] [address]- 7214 Apr, [facility] [place] [facility] [address] [id number] [place] [address]- 2319 Apr, [facility] [place] [facility] [address] [id number] [place] [address]- 1763 Apr, [facility] [place] [facility] [address] [id number] [place] [address]- 8889 Apr, [facility] [place] [facility] [address] [id number] [place] [address]- 2021 Apr, [facility] [place] [facility] [address] [id number] [place] [address]- 5493 Apr, [facility] [place] [facility] [address] [id number] [place] [address]- 9947 Apr, [facility] [place] [facility] [address] [id number] [place] [address]- 9788 Apr, [facility] [place] [facility] [address] [id number] [place] [address]- 2077 Apr, [facility] [place] [facility] [address] [id number] [place] [address]- 4431 Apr, [facility] [place] [facility] [address] [id number] [place] [address]- 6506 Apr, [facility] [place] [facility] [address] [id number] [place] [address]- 8242 Apr, [facility] [place] [facility] [address] [id number] [place] [address]- 0794 Mar, [facility] [place] [facility] [address] [id number] [place] [address]- 7212 Mar, [facility] [place] [facility] [address] [id number] [place] [address]- 8995 Mar, [facility] [place] [facility] [address] [id number] [place] [address]- 1780 Mar, [facility] [place] [facility] [address] [id number] [place] [address]- 1564 Mar, [facility] [place] [facility] [address] [id number] [place] [address]- 5589 Mar, [facility] [place] [facility] [address] [id number] [place] [address]- 2358 15 Mar, 2014 [facility] [place] [facility] [address] [id number] [place] [address]- 9561 15 Mar, 2014 [facility] [place] [facility] [address] [id number] [address]- 8520 15 Mar, 2014 [facility] [place] [facility] [address] [id number] [place] [address]- 4936 15 Mar, 2014 [facility] [place] [facility] [address] [id number] [place] [address]- 1214 15 Mar, 2014 [facility] [place] [facility] [address] [id number] [place] [address]- 9209 15 Mar, 2014 [facility] [place] [facility] [address] [id number] [place] [address]- 6270 Mar, [facility] [place] [facility] [address] [id number] [place] [address]- 2634 Mar, [facility] [place] [facility] [address] [id number] [place] [address]- 9067 Mar, [facility] [place] [facility] [address] [id number] [place] [address]- 0598 Mar, [facility] [place] [facility] [address] [id number] [place] [address]- 9852 Mar, [facility] [place] [facility] [address] [id number] [place] [address] Mar, [facility] [place] [facility] [address] [id number] [place] [address] Feb, [facility] [place] [facility] [address] [id number] [place] [address] Feb, [facility] [place] [facility] [address] [id number] [place] [address] Feb, [facility] [place] [facility] [address] [id number] [place] [address] Feb, [facility] [place] [facility] [address] [facility] [id number] [place] [address] Feb, [facility] [place] [facility] [address] [id number] [place] [address] Feb, [facility] [place] [facility] [address] [id number] [place] [address] Feb, [facility] [place] [facility] [address] [id number] [place] [address] Feb, [facility] [place] [facility] [address] [id number] [place] [address] Jan, [facility] [place] [facility] [address] [id number] [place] [address] Jan, [facility] [place] [facility] [address] [id number] [place] [address] Jan, [facility] [place] [facility] [address] [id number] [place] [address] Jan, [facility] [place] [facility] [address] [id number] [place] [address]- [address] Jan, [facility] [place] [facility] [address] [id number] [place] [address]- [address] Jan, [facility] [place] [facility] [address] [id number] [place] [address] Jan, [facility] [place] [facility] [address] [id number] [place] [address] Jan, [facility] [place] [facility] [address] [id number] [place] [address] Jan, [facility] [place] [facility] [address] [id number] [place] [address] Jan, [facility] [place] [facility] [address] [id number] [place] [address]- [address] Jan, [facility] [place] [facility] [address] [id number] [place] [address] Jan, [facility] [place] [facility] [address] [id number] [place] [address]- [address] Jan, [facility] [place] [facility] [address] [id number] [address] Jan, [facility] [place] [facility] [address] [id number] [place] [address] Jan, [facility] [place] [facility] [address] [id number] [place] [address]- [address]65 16 Jan, 2014 [facility] [place] [facility] [address] [id number] [place] [address] Jan, [facility] [place] [facility] [address] [id number] [place] [address] 13 Jan, 2014 [facility] [place] [facility] [address] [id number] [place] [address]46 29 Sep, 2013 [facility] [place] [facility] [address] [id number] [place] [address]46 29 Dec, 2013 [facility] [place] [facility] [address] [id number] [place] [address]46 26 Dec, 2013 [facility] [place] [facility] [address] [id number] [place] [address] 2546 26 Dec, 2013 [facility] [place] [facility] [address] [id number] [place] [address]47 26 Dec, 2013 [facility] [place] [facility] [address] [id number] [place] [address]- [address] 26 Dec, 2013 [facility] [place] [facility] [address] [id number] [place] [address]- [address] 23 Dec, 2013 [facility] [place] [facility] [address] [id number] [place] [address]- [address] 23 Dec, 2013 [facility] [place] [facility] [address] [id number] [place] [address] 2544 22 Dec, 2013 [facility] [place] [facility] [address] [id number] [place] [address] 2544 22 Dec, 2013 [facility] [place] [facility] [address] [id number] [place] [address] 254 16 Dec, 2013 [facility] [place] [facility] [address] [id number] [place] [address] 16 Dec, 2013 [facility] [place] [facility] [address] [id number] [place] [address] 15 Dec, 2013 [facility] [place] [facility] [address] [id number] [place] [address] 2546 15 Dec, 2013 [facility] [place] [facility] [address] [id number] [place] [address]- [address] 09 Dec, 2013 [facility] [place] [facility] [address] [id number] [place] [address] Dec, [facility] [place] [facility] [address] [id number] [place] [address] Dec, [facility] [place] [facility] [address] [id number] [place] [address] Nov, [facility] [place] [facility] [address] [id number] [place] [address]- [address] Nov, [facility] [place] [facility] [address] [id number] [place] [address] Nov, [facility] [place] [facility] [address] [id number] [place] [address] Nov, [facility] [place] [facility] [address] [id number] [place] [address] Nov, [facility] [place] [facility] [address] [id number] [place] [address]- [address] Nov, [facility] [place] [facility] [address] [id number] [place] [address] Nov, [facility] [place] [facility] [address] [id number] [place] [address]- [address] Nov, [facility] [place] [facility] [address] [id number] [place] [address] Nov, [facility] [place] [facility] [address] [id number] [place] [address] 3747 Nov, [facility] [place] [facility] [address] [id number] [place] [address] 2[address] Nov, [facility] [place] [facility] [address] [id number] [place] [address]- 9619 Nov, [facility] [place] [facility] [address] [id number] [place] [address]- 7205 Nov, [facility] [place] [facility] [address] [id number] [place] [address]- 3687 Nov, [facility] [place] [facility] [address] [id number] [place] [address] 9915 Nov, [facility] [place] [facility] [address] [id number] [place] [address] 1892 Nov, [facility] [place] [facility] [address] [id number] [place] [address]- 7094 Nov, [facility] [place] [facility] [address] [id number] [place] [address]- 9806 Nov, [facility] [place] [facility] [address] [id number] [place] [address]- 1844 Nov, [facility] [place] [facility] [address] [id number] [place] [address]- 5557 Nov, [facility] [place] [facility] [address] [id number] [place] [address]- 1065 Nov, [facility] [place] [facility] [address] [id number] [place] [address]- 0699 Oct, [facility] [place] [facility] [address] [id number] [place] [address]- 3739 Oct, [facility] [place] [facility] [address] [id number] [place] [address]- 7892 Oct, [facility] [place] [facility] [address] [id number] [place] [address]- 4529 Oct, [facility] [place] [facility] [address] [id number] [place] [address]- 0232 Oct, [facility] [place] [facility] [address] [id number] [place] [address]- 1603 Oct, [facility] [place] [facility] [address] [id number] [place] [address]- 6338 Oct, [facility] [place] [facility] [address] [id number] [place] [address]- 2347 Oct, [facility] [place] [facility] [address] [id number] [place] [address]- 7659 15 Oct, 2013 [facility] [place] [facility] [address] [id number] [place] [address]- 4263 14 Oct, 2013 [facility] [place] [facility] [address] [id number] [place] [address]- 7856 Oct, [facility] [place] [facility] [address] [id number] [place] [address]- 7614 Oct, [facility] [place] [facility] [address] [id number] [place] [address]- 1896 Oct, [facility] [place] [facility] [address] [id number] [place] [address]- 2551 Oct, [facility] [place] [facility] [address] [id number] [place] [address]- 8074 Oct, [facility] [place] [facility] [address] [id number] [place] [address]- 3881 Sep, [facility] [place] [facility] [address] [id number] [place] [address]- 0083 Sep, [facility] [place] [facility] [address] [id number] [place] [address]- 9159 Sep, [facility] [place] [facility] [address] [id number] [place] [address]- 0404 Sep, [facility] [place] [facility] [address] [id number] [place] [address]- 2270 Sep, [facility] [place] [facility] [address] [id number] [place] [address]- 7551 Sep, [facility] [place] [facility] [address] [id number] [place] [address]- 7263 Sep, [facility] [place] [facility] [address] [id number] [place] [address]- 7094 Sep, [facility] [place] [facility] [address] [id number] [place] [address]- 3328 17 Sep, 2013 [facility] [place] [facility] [address] [id number] [place] [address]- 1975 Sep, [facility] [place] [facility] [address] [id number] [place] [address]- 4608 Sep, [facility] [place] [facility] [address] [id number] [place] [address]- 0963 Sep, [facility] [place] [facility] [address] [id number] [place] [address]- 6148 Sep, [facility] [place] [facility] [address] [id number] [place] [address]- 3040 Sep, [facility] [place] [facility] [address] [id number] [place] [address]- 9347 Sep, [facility] [place] [facility] [address] [id number] [place] [address]- 2709 Sep, [facility] [place] [facility] [address] [id number] [place] [address]- 5278 Sep, [facility] [place] [facility] [address] [id number] [place] [address]- 3812 Sep, [facility] [place] [facility] [address] [id number] [place] [address]- 1455 Sep, [facility] [place] [facility] [address] [id number] [place] [address]- 2177 Sep, [facility] [place] [facility] [address] [id number] [place] [address]- 3204 Sep, [facility] [place] [facility] [address] [id number] [place] [address]- 8371 Sep, [facility] [place] [facility] [address] [id number] [place] [address]- 4316 August, [facility] [place] [facility] [address] [id number] [place] [address]- 4088 August, [facility] [place] [facility] [address] [id number] [place] [address]- 4647 August, [facility] [address] [id number] [place] [address]- 0065 August, [facility] [place] [facility] [address] [id number] [place] [address]- 4640 August, [facility] [place] [facility] [address] [id number] [place] [address]- 4529 August, [facility] [place] [facility] [address] [id number] [place] [address]- 5017 August, [facility] [place] [facility] [address] [id number] [place] [address]- 8337 August, [facility] [place] [facility] [address] [id number] [place] [address]- 7964 August, [facility] [place] [facility] [address] [id number] [place] [address]- 0141 August, [facility] [place] [facility] [address] [id number] [place] [address]- 7632 August, [facility] [place] [facility] [address] [id number] [place] [address]- 8802 August, [facility] [place] [facility] [address] [id number] [place] [address]- 9092 August, [facility] [place] [facility] [address] [id number] [place] [address]- 9290 August, [facility] [place] [facility] [address] [id number] [place] [address]- 7194 August, [facility] [place] [facility] [address] [id number] [place] [address]- 8325 August, [facility] [place] [facility] [address] [id number] [place] [address]- 2348 August, [facility] [place] [facility] [address] [id number] [place] [address]- 0577 August, [facility] [place] [facility] [address] [id number] [place] [address]- 7681 Jul, [facility] [place] [facility] [address] [id number] [place] [address]- 6077 Jul, [facility] [place] [facility] [address] [id number] [place] [address]- 7009 Jul, [facility] [place] [facility] [address] [id number] [place] [address]- 8871 Jul, [facility] [place] [facility] [address] [id number] [place] [address]- 5285 Jul, [facility] [place] [facility] [address] [id number] [place] [address]- 0326 Jul, [facility] [place] [facility] [address] [id number] [place] [address]- 7753 Jul, [facility] [place] [facility] [address] [id number] [place] [address]- 7602 Jul, [facility] [place] [facility] [address] [id number] [place] [address]- 2455 Jul, [facility] [place] [facility] [address] [id number] [place] [address]- 0535 Jul, [facility] [place] [facility] [address] [id number] [place] [address]- 5727 Jul, [facility] [place] [facility] [address] [id number] [place] [address]- 1573 Jul, [facility] [place] [facility] [address] [id number] [place] [address]- 3244 Jul, [facility] [place] [facility] [address] [id number] [place] [address]- 4034 Jul, [facility] [place] [facility] [address] [id number] [place] [address]- 0219 Jul, [facility] [place] [facility] [address] [id number] [place] [address]- 8683 Jul, [facility] [place] [facility] [address] [id number] [place] [address]- 1596 17 Jul, 2013 [facility] [place] [facility] [address] [id number] [place] [address]- 0270 16 Jul, 2013 [facility] [place] [facility] [address] [id number] [place] [address]- 7636 16 Jul, 2013 [facility] [place] [facility] [address] [id number] [place] [address]- 0022 15 Jul, 2013 [facility] [place] [facility] [address] [id number] [place] [address]- 3008 15 Jul, 2013 [facility] [place] [facility] [address] [id number] [place] [address]- 7515 14 Jul, 2013 [facility] [place] [facility] [address] [id number] [place] [address]- 0648 Jul, [facility] [place] [facility] [address] [id number] [place] [address]- 1484 Jul, [facility] [place] [facility] [address] [id number] [place] [address]- 9816 Jul, [facility] [place] [facility] [address] [id number] [place] [address]- 9769 Jul, [facility] [place] [facility] [address] [id number] [place] [address]- 6558 Jul, [facility] [place] [facility] [address] [id number] [place] [address]- 2572 Jul, [facility] [place] [facility] [address] [id number] [place] [address]- 4904 Jul, [facility] [place] [facility] [address] [id number] [place] [address]- 3223 Jun, [facility] [place] [facility] [address] [id number] [place] [address]- 3741 Jun, [facility] [place] [facility] [address] [id number] [place] [address]- 9633 17 Jun, 2013 [facility] [place] [facility] [address] [id number] [place] [address]- 1822 17 Jun, 2013 [facility] [place] [facility] [address] [id number] [place] [address]- 7818 Jun, [facility] [place] [facility] [address] [id number] [place] [address]- 4443 Jun, [facility] [place] [facility] [address] [id number] [place] [address]- 0625 Jun, [facility] [place] [facility] [address] [id number] [place] [address]- 7358 Jun, [facility] [place] [facility] [address] [id number] [place] [address]- 5309 Jun, [facility] [place] [facility] [address] [facility] [id number] [place] [address]- 3563 Jun, [facility] [place] [facility] [address] [id number] [place] [address]- 3804 Jun, [facility] [place] [facility] [address] [id number] [place] [address]- 8070 Jun, [facility] [place] [facility] [address] [facility] [id number] [place] [address]- 6896 May, [facility] [place] [facility] [address] [id number] [place] [address]- 6716 May, [facility] [place] [facility] [address] [id number] [place] [address]- 8106 May, [facility] [place] [facility] [address] [id number] [place] [address]- 5007 May, [facility] [place] [facility] [address] [id number] [place] [address]- 6206 May, [facility] [place] [facility] [address] [facility] [id number] [place] [address]- 8625 May, [facility] [place] [facility] [address] [id number] [place] [address]- 7501 May, [facility] [place] [facility] [address] [id number] [place] [address]- 7083 May, [facility] [place] [facility] [address] [id number] [place] [address]- 6276 May, [facility] [place] [facility] [address] [id number] [place] [address]- 5597 May, [facility] [place] [facility] [address] [id number] [place] [address]- 4533 Apr, [facility] [place] [facility] [address] [id number] [place] [address]- 0736 Apr, [facility] [place] [facility] [address] [id number] [place] [address]- 0033 Apr, [facility] [place] [facility] [address] [id number] [place] [address]- 0342 Apr, [facility] [place] [facility] [address] [id number] [place] [address]- 3755 Apr, [facility] [place] [facility] [address] [id number] [place] [address]- 7460 Apr, [facility] [place] [facility] [address] [id number] [place] [address]- 6950 Apr, [facility] [place] [facility] [address] [id number] [place] [address]- 9495 Apr, [facility] [place] [facility] [address] [id number] [place] [address]- 4105 Apr, [facility] [place] [facility] [address] [id number] [place] [address]- 5691 Apr, [facility] [place] [facility] [address] [id number] [place] [address]- 6512 Mar, [facility] [place] [facility] [address] [id number] [address]- 0881 Mar, [facility] [place] [facility] [address] [id number] [place] [address]- 7950 Mar, [facility] [place] [facility] [address] [id number] [place] [address]- 4653 Mar, [facility] [place] [facility] [address] [id number] [place] [address]- 5846 Mar, [facility] [place] [facility] [address] [id number] [place] [address]- 2913 Mar, [facility] [place] [facility] [address] [id number] [place] [address]- 0282 Feb, [facility] [place] [facility] [address] [id number] [place] [address]- 0390 Feb, [facility] [place] [facility] [address] [facility] [id number] [place] [address]- 6210 Feb, [facility] [place] [facility] [address] [id number] [place] [address]- 9333 Jan, [facility] [place] [facility] [address] [facility] [id number] [place] [address]- 9499 30 Jan, 2013 [facility] [place] [facility] [address] [facility] [id number] [place] [address]- 9026 Jan, [facility] [place] [facility] [address] [id number] [place] [address]- 7960 28 Jan, 2013 [facility] [place] [facility] [address] [id number] [place] [address]- 3940 15 Jan, 2013 [facility] [place] [facility] [address] [id number] [place] [address]- 5419 15 Jan, 2013 [facility] [place] [facility] [address] [facility] [id number] [place] [address]- 9223 Jan, [facility] [place] [facility] [address] [facility] [id number] [place] [address]- 7555 11 Jan, 2013 [facility] [place] [facility] [address] [id number] [place] [address]- 4277 Jan, [facility] [place] [facility] [address] [id number] [place] [address]- 5283 Jan, [facility] [place] [facility] [address] [id number] [place] [address]- 1466 30 Dec, 2012 [facility] [place] [facility] [address] [id number] [place] [address]- 2846 25 Dec, 2012 [facility] [place] [facility] [address] [id number] [place] [address]- 8651 11 Dec, 2012 [facility] [place] [facility] [address] [id number] [place] [address]- 7555 Dec, 2012 [facility] [place] [facility] [address] [id number] [place] [address]- 0465 05 Dec, 2012 [facility] [place] [facility] [address] [id number] [place] [address]- 0914 Dec, 2012 [facility] [place] [facility] [address] [id number] [place] [address]- 1406 Nov, [facility] [place] [facility] [address] [id number] [place] [address]- 2223 Nov, [facility] [place] [facility] [address] [id number] [place] [address]- 9789 Nov, [facility] [place] [facility] [address] [id number] [place] [address]- 9964 Nov, [facility] [place] [facility] [address] [id number] [place] [address] 2544 Nov, [facility] [place] [facility] [address] [id number] [place] [address]- 2806 Nov, [facility] [place] [facility] [address] [id number] [place] [address]- 2542 Nov, [facility] [place] [facility] [address] [id number] [place] [address]- 0706 Nov, [facility] [address] [id number] [place] [address]- 3244 Nov, [facility] [place] [facility] [address] [id number] [place] [address]- 0199 Nov, [facility] [place] [facility] [address] [id number] [place] [address]- 7351 Nov, [facility] [place] [facility] [address] [id number] [place] [address]- 7485 Nov, [facility] [place] [facility] [address] [id number] [place] [address]- 3877 Oct, [facility] [place] [facility] [address] [id number] [place] [address]- 0664 Oct, [facility] [place] [facility] [address] [id number] [place] [address]- 5197 Oct, [facility] [place] [facility] [address] [id number] [place] [address]- 1880 Sep, [facility] [place] [facility] [address] [id number] [place] [address]- 0946 Sep, [facility] [place] [facility] [address] [id number] [place] [address]- 5312 Sep, [facility] [place] [facility] [address] [id number] [place] [address]- 1394 August, [facility] [place] [facility] [address] [id number] [place] [address]- 6010 August, [facility] [place] [facility] [address] [id number] [place] [address]- 3462 August, [facility] [place] [facility] [address] [id number] [place] [address]- 6576 August, [facility] [place] [facility] [address] [id number] [place] [address]- 4148 August, [facility] [place] [facility] [address] [id number] [place] [address]- 4259 August, [facility] [address] [id number] [place] [address]- 0549 30 Jul, 2012 [facility] [place] [facility] [address] [id number] [place] [address]- 0611 15 Jul, 2012 [facility] [address] [id number] [place] [address]- 7380 Jul, [facility] [place] [facility] [address] [id number] [place] [address]- 2671 Jul, [facility] [address] [id number] [place] [address]- 7243 Jul, [facility] [place] [facility] [address] [id number] [place] [address]- 0416 Jul, [facility] [address] [id number] [place] [address]- 7071 2012 [facility] [address] [id number] [place] [address]- 3573 20 Jun, 2012 [facility] [address] [id number] [place] [address]- 2192 18 Jun, 2012 [facility] [address] [id number] [place] [address]- 9836 14 Jun, 2012 [facility] [place] [facility] [address] [id number] [place] [address]- 5487 04 Jun, 2012 [facility] [place] [facility] [address] [id number] [place] [address]- 9176 May, [facility] [place] [facility] [address] [id number] [place] [address]- 3321 12 May, 2012 [facility] [place] [facility] [address] [id number] [place] [address]- 6895 May, [facility] [place] [facility] [address] [id number] [place] [address]- 2682 08 May, 2012 [facility] [address] [id number] [place] [address]- 5492 Apr, [facility] [place] [facility] [address] [id number] [place] [address]- 8500 Apr, [facility] [place] [facility] [address] [id number] [place] [address]- 1591 Apr, [facility] [place] [facility] [address] [id number] [place] [address]- 5185 Mar, [facility] [place] [facility] [address] [id number] [place] [address] Mar, [facility] [place] [facility] [address] [id number] [place] [address] Mar, [facility] [place] [facility] [address] [id number] [place] [address] Mar, [facility] [place] [facility] [address] [id number] [place] [address] Mar, [facility] [place] [facility] [address] [id number] [place] [address] Mar, [facility] [place] [facility] [address] [id number] [place] [address] Mar, [facility] [place] [facility] [address] [id number] [place] [address] Mar, [facility] [place] [facility] [address] [id number] [address] Feb, [facility] [place] [facility] [address] [id number] [place] [address] Feb, [facility] [place] [facility] [address] [id number] [place] [address] Feb, [facility] [place] [facility] [address] [id number] [place] [address] Feb, [facility] [place] [facility] [address] [id number] [place] [address] Feb, [facility] [place] [facility] [address] [id number] [place] [address] Feb, [facility] [place] [facility] [address] [id number] [place] [address] Feb, [facility] [place] [facility] [address] [facility] [id number] [place] [address] Feb, [facility] [place] [facility] [address] [id number] [place] [address] Feb, [facility] [place] [facility] [address] [id number] [place] [address] Feb, [facility] [place] [facility] [address] [facility] [id number] [place] [address] Feb, [facility] [place] [facility] [address] [id number] [place] [address] Feb, [facility] [place] [facility] [address] [facility] [id number] [place] [address] 2009 Feb, [facility] [place] [facility] [address] [facility] [id number] [place] [address] Feb, [facility] [place] [facility] [address] [facility] [id number] [place] [address]- [address]195 Feb, [facility] [place] [facility] [address] [facility] [id number] [place] [address] Feb, [facility] [place] [facility] [address] [facility] [id number] [place] [address] Feb, [facility] [place] [facility] [address] [facility] [id number] [place] [address] Feb, [facility] [place] [facility] [address] [facility] [id number] [place] [address]207 Jan, [facility] [place] [facility] [address] [facility] [id number] [place] [address] Jan, [facility] [place] [facility] [address] [id number] [place] [address]- 9691 22 Jan, 2011 [facility] [place] [facility] [address] [id number] [place] [address] 20 Jan, 2012 [facility] [place] [facility] [address] [id number] [place] [address]- [address]695 20 Jan, 2012 [facility] [place] [facility] [address] [id number] [place] [address]779 19 Jan, 2012 [facility] [place] [facility] [address] [id number] [place] [address]695 18 Jan, 2012 [facility] [place] [facility] [address] [id number] [place] [address]- 1455 18 Jan, 2012 [facility] [place] [facility] [address] [id number] [place] [address]- 2965 15 Jan, 2012 [facility] [place] [facility] [address] [id number] [place] [address]- [address] 15 Jan, 2012 [facility] [place] [facility] [address] [id number] [place] [address]- [address]104 11 Jan, 2012 [facility] [place] [facility] [address] [id number] [place] [address]- [address]19 11 Jan, 2012 [facility] [place] [facility] [address] [facility] [id number] [place] [address]- [address] 10 Jan, 2012 [facility] [place] [facility] [address] [id number] [place] [address]- [address]609 09 Jan, 2012 [facility] [place] [facility] [address] [id number] [place] [address]- [address]28 02 Jan, 2012 [facility] [place] [facility] [address] [id number] [place] [address]- [address]306 29 Dec, 2011 [facility] [place] [facility] [address] [id number] [place] [address]- 6936 28 Dec, 2011 [facility] [place] [facility] [address] [id number] [place] [address]- 5217 Dec, [facility] [place] [facility] [address] [id number] [place] [address]- [address] Dec, [facility] [place] [facility] [address] [id number] [place] [address]- [address] Nov, [facility] [place] [facility] [address] [id number] [place] [address]- 8917 Nov, [facility] [place] [facility] [address] [id number] [place] [address]- 46[address] Nov, [facility] [place] [facility] [address] [id number] [place] [address]- 2359 Nov, [facility] [place] [facility] [address] [id number] [place] [address]- 4327 Nov, [facility] [place] [facility] [address] [id number] [place] [address]- [address] Nov, [facility] [place] [facility] [address] [id number] [place] [address]- 9684 Nov, [facility] [place] [facility] [address] [id number] [place] [address]- 9482 Nov, [facility] [place] [facility] [address] [id number] [place] [address]- 0965 Nov, [facility] [place] [facility] [address] [id number] [place] [address]- 9517 Nov, [facility] [place] [facility] [address] [id number] [place] [address]- 8[address] Nov, [facility] [place] [facility] [address] [id number] [place] [address]- 9526 Oct, [facility] [place] [facility] [address] [id number] [place] [address]- [address]997 Oct, [facility] [place] [facility] [address] [id number] [place] [address]- 9106 Oct, [facility] [place] [facility] [address] [id number] [place] [address]- 8011 Oct, [facility] [place] [facility] [address] [id number] [place] [address]- 8690 Oct, [facility] [place] [facility] [address] [id number] [place] [address] Oct, [facility] [place] [facility] [address] [id number] [place] [address] Oct, [facility] [place] [facility] [address] [id number] [place] [address] Oct, [facility] [place] [facility] [address] [id number] [place] [address] Sep, [facility] [place] [facility] [address] [id number] [place] [address] Sep, [facility] [place] [facility] [address] [id number] [place] [address] Sep, [facility] [place] [facility] [address] [id number] [place] [address] Sep, [facility] [place] [facility] [address] [id number] [place] [address] Sep, [facility] [place] [facility] [address] [id number] [place] [address] Sep, [facility] [place] [facility] [address] [id number] [place] [address] Sep, [facility] [place] [facility] [address] [id number] [place] [address] August, [facility] [place] [facility] [address] [id number] [place] [address] August, [facility] [place] [facility] [address] [id number] [place] [address] August, [facility] [place] [facility] [address] [id number] [place] [address] 245[address] August, [facility] [place] [facility] [address] [id number] [place] [address] August, [facility] [address] [id number] [place] [address] August, [facility] [place] [facility] [address] [id number] [place] [address] August, [facility] [address] [id number] [place] [address] August, [facility] [address] [id number] [place] [address] Jul, [facility] [place] [facility] [address] [id number] [place] [address]61 17 Jul, 2011 [facility] [address] [id number] [place] [address] 1984 Jul, [facility] [address] [id number] [place] [address] Jul, [facility] [address] [id number] [place] [address] Jul, [facility] [address] [id number] [place] [address]- [address]84 28 Jun, 2011 [facility] [place] [facility] [address] [id number] [place] [address] 2011 [facility] [place] [facility] [address] [id number] [place] [address] 20 Jun, 2011 [facility] [place] [facility] [address] [id number] [place] [address] 19 Jun, 2011 [facility] [place] [facility] [address] [id number] [place] [address]- [address]21 12 Jun, 2011 [facility] [place] [facility] [address] [id number] [place] [address] Jun, [facility] [place] [facility] [address] [id number] [place] [address] Jun, [facility] [address] [id number] [place] [address] Jun, [facility] [address] [id number] [place] [address] Jun, [facility] [address] [id number] [place] [address] 8546 May, [facility] [address] [id number] [place] [address] May, [facility] [address] [id number] [place] [address] 9756 May, [facility] [address] [id number] [place] [address]666 May, [facility] [address] [id number] [place] [address]- 7768 May, [facility] [address] [id number] [place] [address] 45[address] May, [facility] [address] [id number] [place] [address] 9255 May, [facility] [address] [facility] [id number] [place] [address] May, [facility] [address] [facility] [id number] [place] [address]- [address] Apr, [facility] [place] [facility] [address] [id number] [place] [address] 18[address] Apr, [facility] [place] [facility] [address] [id number] [place] [address] 279[address] Apr, [facility] [place] [facility] [address] [id number] [place] [address]- [address]86 Apr, [facility] [address] [facility] [id number] [address] Apr, [facility] [address] [id number] [place] [address]- [address] 05 Apr, 2011 [facility] [address] [id number] [place] [address]- [address] Mar, [facility] [place] [facility] [address] [id number] [place] [address]- 7682 Mar, [facility] [place] [facility] [address] [id number] [place] [address]- 3071 Mar, [facility] [address] [id number] [place] [address]- 8178 Mar, [facility] [place] [facility] [address] [id number] [place] [address]- 4848 15 Mar, 2011 [facility] [address] [id number] [place] [address]- 7891 Mar, [facility] [place] [facility] [address] [id number] [place] [address]- 7235 Mar, [facility] [place] [facility] [address] [id number] [place] [address]- 7618 Mar, [facility] [place] [facility] [address] [id number] [place] [address]- 5805 Mar, [facility] [place] [facility] [address] [id number] [place] [address]- 58[address] Mar, [facility] [place] [facility] [address] [id number] [place] [address]- 0977 Mar, [facility] [place] [facility] [address] [id number] [place] [address]- [address]884 Mar, [facility] [place] [facility] [address] [id number] [place] [address]- 5410 Mar, [facility] [place] [facility] [address] [id number] [place] [address]- 8033 Feb, [facility] [place] [facility] [address] [id number] [place] [address]- 4306 Feb, [facility] [place] [facility] [address] [id number] [place] [address] 17 Feb, 2011 [facility] [place] [facility] [address] [id number] [place] [address]- 4914 Feb, [facility] [place] [facility] [address] [id number] [place] [address]- 3395 Feb, [facility] [place] [facility] [address] [id number] [place] [address]- 9466 Feb, [facility] [place] [facility] [address] [id number] [place] [address]- 8769 Feb, [facility] [place] [facility] [address] [id number] [place] [address]- 6296 Jan, [facility] [place] [facility] [address] [id number] [place] [address]- 6904 Jan, [facility] [place] [facility] [address] [id number] [place] [address]- 1842 Jan, [facility] [place] [facility] [address] [id number] [place] [address]- 9294 Nov, [facility] [place] [facility] [address] [id number] [place] [address]- 2971 Mar, [facility] [place] [facility] [address] [id number] [address] 3224 Mar, [facility] [place] [facility] [address] [id number] [place] [address]- [address] 20 Mar, 2010 [facility] [place] [facility] [address] [id number] [place] [address]- 1455 13 Mar, 2010 [facility] [place] [facility] [address] [id number] [place] [address] 07 Mar, 2010 [facility] [place] [facility] [address] [id number] [place] [address]- 8621 30 Feb, 2010 [facility] [place] [facility] [address] [facility] [id number] [place] [address] 30 Feb, 2010 [facility] [address] [facility] [id number] [place] [address]- [address] 24 Feb, 2010 [facility] [address] [facility] [id number] [place] [address]- 8[address] 19 Feb, 2010 [facility] [address] [facility] [id number] [place] [address]- [address] 19 Feb, 2010 [facility] [address] [facility] [id number] [place] [address]- [address] 15 Feb, 2010 IMMUNIZATIONS No Known Immunizations SOCIAL HISTORY Never Assessed REASON FOR VISIT braces PLAN OF CARE VITAL SIGNS MEDICATIONS Unknown [...] Mastectomy 02/01/2017 Hospitalization History surgeries Hospitalization History [facility] ED 10/06/2017
[2018-01-10 15:53] VITALS: BP 145/80
--- OUTSIDE RECORDS SUMMARY | 2018-01-10 17:31 | XMS REPORT | Continuity of Care Document ---
Author Author [facility] Organization [facility] Address Unknown Phone Unavailable Allergies Active Description [...] Allergy 07/21/2012 Yes No Known Drug Allergies [id number] Drug Allergy Unknown N/A 05/17/2013 Yes fluticasone [id number] Drug Allergy Unknown DOESN'T WORK 05/09/2015 Yes gabapentin [id number] Drug Allergy Unknown NOT EFFECTIVE 05/09/2015 Yes PROPANOLOL PROPANOLOL Unknown NOT EFFECTIVE 05/09/2015 Yes salmeterol [id number] Drug Allergy Unknown DOESN'T WORK 05/09/2015 Yes zolpidem [id number] Drug Allergy Unknown "MAKES ME ANGRY 05/09/2015 Yes fluoxetine [id number] Drug Allergy Mild N/A 03/05/2017 Medications There is no data. Problems Date Dx Coded Attending Type Code Diagnosis Diagnosed By 03/18/1103 JARRED CASTRO, ROCÍO Ot 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 03/18/1103 JARRED CASTRO, ROCÍO Ot E66.01 MORBID (SEVERE) OBESITY DUE TO EXCESS CA 03/18/1103 JARRED ACSTRO, ROCÍO Hays E78.5 HYPERLIPIDEMIA, UNSPECIFIED 03/18/1103 JARRED CASTRO, ROCÍO Ot F31.9 BIPOLAR DISORDER, UNSPECIFIED 03/18/1103 JARRED CASTRO, ROCÍO Ot I10 ESSENTIAL (PRIMARY) HYPERTENSION 03/18/1103 XUN ROCÍO CASTRO Ot J44.9 CHRONIC OBSTRUCTIVE PULMONARY DISEASE, U 03/18/1103 ROCÍO STERN MD Ot K21.9 GASTRO-ESOPHAGEAL REFLUX DISEASE WITHOUT 03/18/1103 JARRED CASTRO, ROCÍO Ot Z68.41 BODY MASS INDEX (BMI) 40.0-44.9, ADULT 03/18/1103 ROCÍO STERN MD Ot Z79.899 OTHER [facility] (CURRENT) DRUG THERAPY 12/18/2009 Ot 530.81 12/18/2009 [...] PHILIPPE K 724.5 Backache Unspecified 03/07/2010 ASHELY PRINTING MACHINIST, BOY J 532.30 Acute Duodenal Ulcer Without Hemorrhage Or Perforation Without Obstruction 03/07/2010 ASHELY PRINTING MACHINIST, BOY J 724.5 Backache Unspecified 03/07/2010 ASHELY PRINTING MACHINIST, BOY J 532.30 Acute Duodenal Ulcer Without Hemorrhage Or Perforation Without Obstruction 03/07/2010 ASHELY PRINTING MACHINIST, BOY J 724.5 Backache Unspecified 03/07/2010 ASHELY PRINTING MACHINIST, BOY J 532.30 Acute Duodenal Ulcer Without Hemorrhage Or Perforation Without Obstruction 03/07/2010 ASHELY PRINTING MACHINIST, BOY J 724.5 Backache Unspecified 03/07/2010 ASHELY PRINTING MACHINIST, BOY J 532.30 Acute Duodenal Ulcer Without Hemorrhage Or Perforation Without Obstruction 03/07/2010 ASHELY PRINTING MACHINIST, BOY J 724.5 Backache Unspecified 03/07/2010 SALGUERO DO, PHILIPPE K 532.30 Acute Duodenal Ulcer Without Hemorrhage Or Perforation Without Obstruction 03/07/2010 SALGUERO DO, PHILIPPE K 724.5 Backache Unspecified 03/07/2010 SALGUERO DO, PHILIPPE K 532.30 Acute Duodenal Ulcer Without Hemorrhage Or Perforation Without Obstruction 03/07/2010 SALGUERO DO, PHILIPPE K 724.5 Backache Unspecified 03/07/2010 ASHELY PRINTING MACHINIST, BOY J 532.30 Acute Duodenal Ulcer Without Hemorrhage Or Perforation Without Obstruction 03/07/2010 ASHELY PRINTING MACHINIST, BOY J 724.5 Backache Unspecified 03/07/2010 ASHELY PRINTING MACHINIST, BOY J 532.30 Acute Duodenal Ulcer Without Hemorrhage Or Perforation Without Obstruction 03/07/2010 ASHELY PRINTING MACHINIST, BOY J 724.5 Backache Unspecified 03/07/2010 ASHELY PRINTING MACHINIST, BOY J 532.30 Acute Duodenal Ulcer Without Hemorrhage Or Perforation Without Obstruction 03/07/2010 ASHELY PRINTING MACHINIST, BOY J 724.5 Backache Unspecified 03/07/2010 SALGUERO DO, PHILIPPE K 532.30 Acute Duodenal Ulcer Without Hemorrhage Or Perforation Without Obstruction 03/07/2010 SALGUERO DO, PHILIPPE K 724.5 Backache Unspecified 03/07/2010 ASHELY PRINTING MACHINIST, BOY J 532.30 Acute Duodenal Ulcer Without Hemorrhage Or Perforation Without Obstruction 03/07/2010 ASHELY PRINTING MACHINIST, BOY J 724.5 Backache Unspecified 03/07/2010 [facility], JACKIE R 532.30 Acute Duodenal Ulcer Without Hemorrhage Or Perforation Without Obstruction 03/07/2010 [facility], JACKIE R 724.5 Backache Unspecified 03/07/2010 SALGUERO DO, PHILIPPE K 532.30 Acute Duodenal Ulcer Without Hemorrhage Or Perforation Without Obstruction 03/07/2010 SALGUERO DO, PHILIPPE K 724.5 Backache Unspecified 03/07/2010 SALGUERO DO, PHILIPPE K 532.30 Acute Duodenal Ulcer Without Hemorrhage Or Perforation Without Obstruction 03/07/2010 SALGUERO DO, PHILIPPE K 724.5 Backache Unspecified 03/07/2010 MOY PRINTING MACHINIST, CHRIS A 532.30 Acute Duodenal Ulcer Without Hemorrhage Or Perforation Without Obstruction 03/07/2010 MOY PRINTING MACHINIST, CHRIS A 724.5 Backache Unspecified 03/07/2010 SALGUERO DO, PHILIPPE K 532.30 Acute Duodenal Ulcer Without Hemorrhage Or Perforation Without Obstruction 03/07/2010 SALGUERO DO, PHILIPPE K 724.5 Backache Unspecified 03/07/2010 ASHELY PRINTING MACHINIST, BOY J 532.30 Acute Duodenal Ulcer Without Hemorrhage Or Perforation Without Obstruction 03/07/2010 ASHELY PRINTING MACHINIST, BOY J 724.5 Backache Unspecified 03/07/2010 SALGUERO [...] 715.00 OSTEOARTHROSIS GENERALIZED INVOLVING UNSPECIFIED SITE 03/25/2010 [facility], JACKIE R 314.00 ATTENTION DEFICIT DISORDER WITHOUT HYPERACTIVITY 03/25/2010 [facility], JACKIE R 333.94 RESTLESS LEGS SYNDROME (RLS) 03/25/2010 [facility], JACKIE R 715.00 OSTEOARTHROSIS GENERALIZED INVOLVING [...] J 368.9 Unspecified Visual Disturbance 05/26/2010 ASHELY PRINTING MACHINIST, BOY J 333.85 TARDIVE DYSKINESIA DRUG-INDUCED 05/26/2010 ASHELY PRINTING MACHINIST, BOY J 368.9 Unspecified Visual Disturbance 05/26/2010 SALGUERO DO, PHILIPPE K 333.85 TARDIVE DYSKINESIA DRUG-INDUCED 05/26/2010 SALGUERO DO, PHILIPPE K 368.9 Unspecified Visual Disturbance 05/26/2010 SALGUERO DO, PHILIPPE K 333.85 TARDIVE DYSKINESIA DRUG-INDUCED 05/26/2010 SALGUERO DO, PHILIPPE K 368.9 Unspecified Visual Disturbance 05/26/2010 ASHELY PRINTING MACHINIST, BOY J 333.85 TARDIVE DYSKINESIA DRUG-INDUCED 05/26/2010 ASHELY PRINTING MACHINIST, BOY J 368.9 Unspecified Visual Disturbance 05/26/2010 WHITE DDS, DEEDEE J 333.85 TARDIVE DYSKINESIA DRUG-INDUCED 05/26/2010 WHITE DDS, DEEDEE J 368.9 Unspecified Visual Disturbance 05/26/2010 WHITE DDS, DEEDEE J 333.85 TARDIVE DYSKINESIA DRUG-INDUCED 05/26/2010 WHITE DDS, DEEDEE J 368.9 Unspecified Visual Disturbance 05/26/2010 SALGUERO DO, PHILIPPE K 333.85 TARDIVE DYSKINESIA DRUG-INDUCED 05/26/2010 SALGUERO DO, PHILIPPE K 368.9 Unspecified Visual Disturbance 05/26/2010 ASHELY PRINTING MACHINIST, BOY J 333.85 TARDIVE DYSKINESIA DRUG-INDUCED 05/26/2010 ASHELY PRINTING MACHINIST, BOY J 368.9 Unspecified Visual Disturbance 05/26/2010 ASHELY PRINTING MACHINIST, BOY J 333.85 TARDIVE DYSKINESIA DRUG-INDUCED 05/26/2010 ASHELY PRINTING MACHINIST, BOY J 368.9 Unspecified Visual Disturbance 05/26/2010 ASHELY PRINTING MACHINIST, BOY J 333.85 TARDIVE DYSKINESIA DRUG-INDUCED 05/26/2010 ASHELY PRINTING MACHINIST, BOY J 368.9 Unspecified Visual Disturbance 05/26/2010 ASHELY PRINTING MACHINIST, BOY J 333.85 TARDIVE DYSKINESIA DRUG-INDUCED 05/26/2010 ASHELY PRINTING MACHINIST, BOY J 368.9 Unspecified Visual Disturbance 05/26/2010 SALGUERO DO, PHILIPPE K 333.85 TARDIVE DYSKINESIA DRUG-INDUCED 05/26/2010 SALGUERO DO, PHILIPPE K 368.9 Unspecified Visual Disturbance 05/26/2010 SALGUERO DO, PHILIPPE K 333.85 TARDIVE DYSKINESIA DRUG-INDUCED 05/26/2010 SALGUERO DO, PHILIPPE K 368.9 Unspecified Visual Disturbance 05/26/2010 ASHELY PRINTING MACHINIST, BOY J 333.85 TARDIVE DYSKINESIA DRUG-INDUCED 05/26/2010 ASHELY PRINTING MACHINIST, BOY J 368.9 Unspecified Visual Disturbance 05/26/2010 [...] BOY J 368.9 Unspecified Visual Disturbance 05/26/2010 [facility], JACKIE R 333.85 TARDIVE DYSKINESIA DRUG-INDUCED 05/26/2010 [facility], JACKIE R 368.9 Unspecified Visual [...] K 368.9 Unspecified Visual Disturbance 05/26/2010 ASHELY PRINTING MACHINIST, BOY J 333.85 TARDIVE DYSKINESIA DRUG-INDUCED 05/26/2010 ASHELY PRINTING MACHINIST, BOY J 368.9 Unspecified Visual Disturbance 05/26/2010 [...] Syndromes 07/22/2010 625.4 Premenstrual Tension Syndromes 07/22/2010 SAGLUERO DO PHILIPPE K 625.4 Premenstrual Tension Syndromes [...] J 625.4 Premenstrual Tension Syndromes 07/22/2010 ASHELY PRINTING MACHINIST, BOY J 625.4 Premenstrual Tension Syndromes 07/22/2010 SALGUERO DO PHILIPPE K 625.4 Premenstrual Tension Syndromes 07/22/2010 SALGUERO DO, PHILIPPE K 625.4 Premenstrual Tension Syndromes 07/22/2010 ASHELY PRINTING MACHINIST, BOY J 625.4 Premenstrual Tension Syndromes 07/22/2010 WHITE DDS, DEEDEE J 625.4 Premenstrual Tension Syndromes 07/22/2010 WHITE DDS, DEEDEE J 625.4 Premenstrual Tension Syndromes 07/22/2010 SALGUERO DO PHILIPPE K 625.4 Premenstrual Tension Syndromes 07/22/2010 ASHELY PRINTING MACHINIST, BOY J 625.4 Premenstrual Tension Syndromes 07/22/2010 ASHELY PRINTING MACHINIST, BOY J 625.4 Premenstrual Tension Syndromes 07/22/2010 ASHELY PRINTING MACHINIST, BOY J 625.4 Premenstrual Tension Syndromes 07/22/2010 ASHELY PRINTING MACHINIST, BOY J 625.4 Premenstrual Tension Syndromes 07/22/2010 SALGUERO DO PHILIPPE K 625.4 Premenstrual Tension Syndromes 07/22/2010 SALGUERO DO PHILIPPE K 625.4 Premenstrual Tension Syndromes 07/22/2010 ASHELY PRINTING MACHINIST, BOY J 625.4 Premenstrual Tension Syndromes 07/22/2010 ASHELY PRINTING MACHINIST, BOY J 625.4 Premenstrual Tension Syndromes 07/22/2010 ASHELY PRINTING MACHINIST, BOY J 625.4 Premenstrual Tension Syndromes 07/22/2010 NOEMY OLVERA PHILIPPE K 625.4 Premenstrual Tension Syndromes 07/22/2010 ASHELY PRINTING MACHINIST, BOY [place] 625.4 Premenstrual Tension Syndromes 07/22/2010 [facility], JACKIE Eastman 625.4 Premenstrual Tension Syndromes 07/22/2010 PHILIPPE SALGUERO DO K 625.4 Premenstrual Tension Syndromes 07/22/2010 SALGUERO DO PHILIPPE K 625.4 Premenstrual Tension Syndromes 07/22/2010 MOY PRINTING MACHINIST, CHRIS [place] 625.4 Premenstrual Tension Syndromes 07/22/2010 PHILIPPE SALGUERO DO K 625.4 Premenstrual Tension Syndromes 07/22/2010 ASHELY PRINTING MACHINIST, BOY [place] 625.4 Premenstrual Tension Syndromes 07/22/2010 [...] DEEDEE J 706.1 Other Acne 09/10/2010 ASHELY PRINTING MACHINIST, BOY J 706.1 Other Acne 09/10/2010 SALGUERO DO, PHILIPPE K 706.1 Other Acne 09/10/2010 SALGUERO DO, PHILIPPE K 706.1 Other Acne 09/10/2010 ASHELY PRINTING MACHINIST, BOY J 706.1 Other Acne 09/10/2010 WHITE DDS, DEEDEE J 706.1 Other Acne 09/10/2010 WHITE DDS, DEEDEE J 706.1 Other Acne 09/10/2010 SALGUERO DO PHILIPPE K 706.1 Other Acne 09/10/2010 ASHELY PRINTING MACHINIST, BOY J 706.1 Other Acne 09/10/2010 ASHELY PRINTING MACHINIST, BOY J 706.1 Other Acne 09/10/2010 ASHELY PRINTING MACHINIST, BOY J 706.1 Other Acne 09/10/2010 ASHELY PRINTING MACHINIST, BOY J 706.1 Other Acne 09/10/2010 SALGUERO DO, PHILIPPE K 706.1 Other Acne 09/10/2010 SALGUERO DO, PHILIPPE K 706.1 Other Acne 09/10/2010 ASHELY PRINTING MACHINIST, BOY J 706.1 Other Acne 09/10/2010 ASHELY PRINTING MACHINIST, BOY J 706.1 Other Acne 09/10/2010 ASHELY PRINTING MACHINIST, BOY J 706.1 Other Acne 09/10/2010 SALGUERO DO, PHILIPPE K 706.1 Other Acne 09/10/2010 ASHELY PRINTING MACHINIST, BOY J 706.1 Other Acne 09/10/2010 JACKIE [...] DO, PHILIPPE K 278.02 Overweight 11/20/2010 ASHELY PRINTING MACHINIST, BOY J 278.02 Overweight 11/20/2010 ASHELY PRINTING MACHINIST, BOY J 278.02 Overweight 11/20/2010 ASHELY PRINTING MACHINIST, BOY J 278.02 Overweight 11/20/2010 ASHELY PRINTING MACHINIST, BOY J 278.02 Overweight 11/20/2010 SALGUERO DO, PHILIPPE K 278.02 Overweight 11/20/2010 SALGUERO DO, PHILIPPE K 278.02 Overweight 11/20/2010 ASHELY PRINTING MACHINIST, BOY J 278.02 Overweight 11/20/2010 ASHELY PRINTING MACHINIST, BOY J 278.02 Overweight 11/20/2010 ASHELY PRINTING MACHINIST, BOY J 278.02 Overweight 11/20/2010 SALGUERO DO, PHILIPPE K 278.02 Overweight 11/20/2010 ASHELY PRINTING MACHINIST, BOY J 278.02 Overweight 11/20/2010 [facility], JACKIE Eastman 278.02 Overweight 11/20/2010 SALGUERO DO, PHILIPPE K 278.02 Overweight 11/20/2010 SALGUERO DO, PHILIPPE K 278.02 Overweight 11/20/2010 CHRIS WINTER APRN 278.02 Overweight 11/20/2010 SALGUERO DO, PHILIPPE K 278.02 Overweight 11/20/2010 ASHELY PRINTING MACHINIST, BOY J 278.02 Overweight 11/20/2010 SALGUERO DO, [...] BOY J 307.42 PERSISTENT INSOMNIA 12/01/2010 ASHELY PRINTING MACHINIST, BOY J 307.42 PERSISTENT INSOMNIA 12/01/2010 ASHELY PRINTING MACHINIST, BOY J 307.42 PERSISTENT INSOMNIA 12/01/2010 ASHELY PRINTING MACHINIST, BOY J 307.42 PERSISTENT INSOMNIA 12/01/2010 SALGUERO DO, PHILIPPE K 307.42 PERSISTENT INSOMNIA 12/01/2010 SALGUERO DO, PHILIPPE K 307.42 PERSISTENT INSOMNIA 12/01/2010 ASHELY VASQUES, BOY J 307.42 PERSISTENT INSOMNIA 12/01/2010 ASHELY SPANGLERN, BOY J 307.42 PERSISTENT INSOMNIA 12/01/2010 ASHELY SPANGLERN, BOY J 307.42 PERSISTENT INSOMNIA 12/01/2010 SALGUERO DO, PHILIPPE K 307.42 PERSISTENT INSOMNIA 12/01/2010 BOY LUND APRN J 307.42 PERSISTENT INSOMNIA 12/01/2010 [facility], JACKIE Eastman 307.42 PERSISTENT INSOMNIA 12/01/2010 SALGUERO [...] DDS, DEEDEE J 278.00 OBESITY 12/23/2010 ASHELY PRINTING MACHINIST, BOY J 278.00 OBESITY 12/23/2010 SALGUERO DO, PHILIPPE K 278.00 OBESITY 12/23/2010 SALGUERO DO, PHILIPPE K 278.00 OBESITY 12/23/2010 ASHELY PRINTING MACHINIST, BOY J 278.00 OBESITY 12/23/2010 WHITE DDS, DEEDEE J 278.00 OBESITY 12/23/2010 WHITE DDS, DEEDEE J 278.00 OBESITY 12/23/2010 SALGUERO DO, PHILIPPE K 278.00 OBESITY 12/23/2010 ASHELY PRINTING MACHINIST, BOY J 278.00 OBESITY 12/23/2010 ASHELY PRINTING MACHINIST, BOY J 278.00 OBESITY 12/23/2010 ASHELY PRINTING MACHINIST, BOY J 278.00 OBESITY 12/23/2010 ASHELY PRINTING MACHINIST, BOY J 278.00 OBESITY 12/23/2010 SALGUERO DO, PHILIPPE K 278.00 OBESITY 12/23/2010 SALGUERO DO, PHILIPPE K 278.00 OBESITY 12/23/2010 ASHELY PRINTING MACHINIST, BOY J 278.00 OBESITY 12/23/2010 ASHELY PRINTING MACHINIST, BOY J 278.00 OBESITY 12/23/2010 ASHELY PRINTING MACHINIST, BOY J 278.00 OBESITY 12/23/2010 SALGUERO DO, PHILIPPE K 278.00 OBESITY 12/23/2010 ASHELY PRINTING MACHINIST, BOY J 278.00 OBESITY 12/23/2010 [facility], JACKIE R 278.00 OBESITY 12/23/2010 SALGUERO DO, PHILIPPE K 278.00 OBESITY 12/23/2010 SALGUERO DO, PHILIPPE K 278.00 OBESITY 12/23/2010 MOY VASQUES CHRIS A 278.00 OBESITY 12/23/2010 SALGUERO DO, PHILIPPE K 278.00 OBESITY 12/23/2010 ASHELY PRINTING MACHINIST, BOY J 278.00 OBESITY 12/23/2010 SALGUERO DO, [...] DDS, DEEDEE J 782.61 Pallor 01/22/2011 ASHELY PRINTING MACHINIST, BOY J 528.00 Stomatitis And Mucositis Unspecified 01/22/2011 ASHELY PRINTING MACHINIST, BOY J 782.61 Pallor 01/22/2011 SALGUERO DO, [...] ASHELY VASQUES, BOY J 782.61 Pallor 01/22/2011 [facility], JACKIE R 528.00 Stomatitis And Mucositis Unspecified 01/22/2011 [facility], JACKIE R 782.61 Pallor 01/22/2011 [...] APRN V76.19 OTHER SCREENING BREAST EXAMINATION 03/05/2011 [facility], JACKIE R 276.51 Dehydration 03/05/2011 [facility], JACKIE R 726.31 MEDIAL EPICONDYLITIS 03/05/2011 [facility], JACKIE R V76.19 OTHER SCREENING [...] V76.19 OTHER SCREENING BREAST EXAMINATION 03/05/2011 ASHELY PRINTING MACHINIST, BOY J 276.51 Dehydration 03/05/2011 ASHELY PRINTING MACHINIST, BOY J 726.31 MEDIAL EPICONDYLITIS 03/05/2011 ASHELY PRINTING MACHINIST, BOY J V76.19 OTHER SCREENING BREAST EXAMINATION [...] V76.10 BREAST CANCER SCREENING 03/31/2011 SALGUERO DO PHILPIPE K V76.2 CERVICAL CANCER SCREENING (PAP SMEAR) [...] BOY LUND APRN 616.10 Vaginitis 03/31/2011 BOY ULND APRN 782.3 Edema 03/31/2011 BOY LUND APRN [...] V76.2 CERVICAL CANCER SCREENING (PAP SMEAR) 03/31/2011 [facility], JACKIE R 112.1 Candidiasis Vaginal 03/31/2011 [facility], JACKIE R 611.72 Breast Lump Or Mass 03/31/2011 [facility], JACKIE R 616.10 Vaginitis 03/31/2011 [facility], JACKIE R 782.3 Edema 03/31/2011 [facility], JACKIE R V76.10 BREAST CANCER SCREENING 03/31/2011 [facility], JACKIE R V76.2 CERVICAL CANCER [...] 611.72 Breast Lump Or Mass 03/31/2011 MOY PRINTING MACHINIST, CHRIS A 616.10 Vaginitis 03/31/2011 MOYVeena VASQUES CHRIS A 782.3 Edema 03/31/2011 MOY PRINTING MACHINIST, CHRIS A V76.10 BREAST CANCER SCREENING 03/31/2011 [...] Medicine Estab Patient Checkup Adult 40-64 04/23/2011 SALGEURO TANISHA OLVERAA K 724.4 LUMBAR RADICULOPATHY 04/23/2011 [...] Patient Checkup Adult 40-64 04/23/2011 SALGUERO DO PHIILPPE K 724.4 LUMBAR RADICULOPATHY 04/23/2011 SALGUERO DO [...] V58.69 taking high-risk medication 04/23/2011 WHITE DDS, EDEDEE J V70.0 Preventive Medicine Estab Patient Checkup Adult 40-64 04/23/2011 WHITE DDS, DEEDEE J 724.4 LUMBAR RADICULOPATHY 04/23/2011 WHITE DDS, EDEDEE J 799.22 Affect Irritable 04/23/2011 HAN DEL [...] Medicine Estab Patient Checkup Adult 40-64 04/23/2011 [facility], JACKIE R 724.4 LUMBAR RADICULOPATHY 04/23/2011 [facility], JACKIE R 799.22 Affect Irritable 04/23/2011 [facility], JACKIE R V58.69 taking high-risk medication 04/23/2011 [facility], JACKIE R V70.0 Preventive Medicine Estab [...] Estab Patient Checkup Adult 40-64 04/23/2011 ASHELY AVSQUES, BOY J 724.4 LUMBAR RADICULOPATHY 04/23/2011 ASHELY PRINTING MACHINIST, BOY J 799.22 Affect Irritable 04/23/2011 ASHELY PRINTING MACHINIST, BOY J V58.69 taking high-risk medication 04/23/2011 ASHELY PRINTING MACHINIST, BOY J V70.0 Preventive Medicine Estab Patient [...] DO, PHILIPPE K 112.1 CANDIDIASIS VAGINAL 05/07/2011 SALGEURO DO, PHILIPPE K 276.51 DEHYDRATION (Na, H2O) [...] BOY LUND APRN 477.9 Rhinitis 05/07/2011 ASHELY PRINTING MACHINIST, BOY J 564.00 CONSTIPATION 05/07/2011 SALGUERO DO, [...] APRN 276.51 DEHYDRATION (Na, H2O) 05/07/2011 BOY ULND APRN 477.9 Rhinitis 05/07/2011 BOY LUND APRN [...] LUND APRN J 477.9 Rhinitis 05/07/2011 ASHELY PRINTING MACHINIST, BOY J 564.00 CONSTIPATION 05/07/2011 ASHELY SPANGLERNJUAREZA [...] LUND APRNA J 112.1 CANDIDIASIS VAGINAL 05/07/2011 UJAREZ LUND APRNA J 276.51 DEHYDRATION (Na, H2O) 05/07/2011 JUAREZ LUND APRNA J 477.9 Rhinitis 05/07/2011 BECKY LUND APRNINDA J 564.00 CONSTIPATION 05/07/2011 JUAREZ LUND APRNA J 112.1 CANDIDIASIS VAGINAL 05/07/2011 BOY LUND APRN J 276.51 DEHYDRATION (Na, H2O) 05/07/2011 BOY LUND APRN 477.9 Rhinitis 05/07/2011 ASHELY PRINTING MACHINIST, BOY J 564.00 CONSTIPATION 05/07/2011 BOY LUND [...] BOY LUND APRN J 564.00 CONSTIPATION 05/07/2011 [facility], JACKIE R 112.1 CANDIDIASIS VAGINAL 05/07/2011 [facility], JACKIE R 276.51 DEHYDRATION (Na, H2O) 05/07/2011 [facility], JACKIE R 477.9 Rhinitis 05/07/2011 [facility], JACKIE R 564.00 CONSTIPATION 05/07/2011 [...] A 276.51 DEHYDRATION (Na, H2O) 05/07/2011 MOY PRINTING MACHINIST, CHRIS A 477.9 Rhinitis 05/07/2011 MOY PRINTING MACHINIST, CHRIS A 564.00 CONSTIPATION 05/07/2011 SALGUERO DO, PHILIPPE K 112.1 CANDIDIASIS VAGINAL 05/07/2011 SALGUERO DO, PHILIPPE K 276.51 DEHYDRATION (Na, H2O) 05/07/2011 SALGUERO DO, PHILIPPE K 477.9 Rhinitis 05/07/2011 SALGUERO DO, PHILIPPE K 564.00 CONSTIPATION 05/07/2011 ASHELY PRINTING MACHINIST, BOY J 112.1 CANDIDIASIS VAGINAL 05/07/2011 ASHELY PRINTING MACHINIST, BOY J 276.51 DEHYDRATION (Na, H2O) 05/07/2011 ASHELY PRINTING MACHINIST, BOY J 477.9 Rhinitis 05/07/2011 ASHELY PRINTING MACHINIST, BOY J 564.00 CONSTIPATION 05/07/2011 SALGUERO DO, [...] APRNA J 338.29 OTHER CHRONIC PAIN 05/25/2011 [facility], JACKIE R 338.29 OTHER CHRONIC PAIN [...] J 522.5 PERIAPICAL ALVEOLAR ABSCESS 05/30/2011 ASHELY PRINTING MACHINIST, BOY J 522.5 PERIAPICAL ALVEOLAR ABSCESS 05/30/2011 SALGUERO DO, PHILIPPE K 522.5 PERIAPICAL ALVEOLAR ABSCESS 05/30/2011 SALGUERO DO, PHILIPPE K 522.5 PERIAPICAL ALVEOLAR ABSCESS 05/30/2011 ASHELY PRINTING MACHINIST, BOY J 522.5 PERIAPICAL ALVEOLAR ABSCESS 05/30/2011 WHITE DDS, DEEDEE J 522.5 PERIAPICAL ALVEOLAR ABSCESS 05/30/2011 WHITE DDS, DEEDEE J 522.5 PERIAPICAL ALVEOLAR ABSCESS 05/30/2011 SALGUERO DO PHILIPPE K 522.5 PERIAPICAL ALVEOLAR ABSCESS 05/30/2011 ASHELY PRINTING MACHINIST, BOY J 522.5 PERIAPICAL ALVEOLAR ABSCESS 05/30/2011 ASHELY PRINTING MACHINIST, BOY J 522.5 PERIAPICAL ALVEOLAR ABSCESS 05/30/2011 ASHELY PRINTING MACHINIST, BOY J 522.5 PERIAPICAL ALVEOLAR ABSCESS 05/30/2011 ASHELY PRINTING MACHINIST, BOY J 522.5 PERIAPICAL ALVEOLAR ABSCESS 05/30/2011 SALGUERO DOTANISHAA K 522.5 PERIAPICAL ALVEOLAR ABSCESS 05/30/2011 SALGUERO DO PHILIPPE K 522.5 PERIAPICAL ALVEOLAR ABSCESS 05/30/2011 ASHELY PRINTING MACHINIST, BOY J 522.5 PERIAPICAL ALVEOLAR ABSCESS 05/30/2011 ASHELY PRINTING MACHINIST, BOY J 522.5 PERIAPICAL ALVEOLAR ABSCESS 05/30/2011 ASHELY PRINTING MACHINIST, BOY J 522.5 PERIAPICAL ALVEOLAR ABSCESS 05/30/2011 SALGUERO DO, PHILIPPE K 522.5 PERIAPICAL ALVEOLAR ABSCESS 05/30/2011 ASHELY PRINTING MACHINIST, BOY J 522.5 PERIAPICAL ALVEOLAR ABSCESS 05/30/2011 [facility], JACKIE Eastman 522.5 PERIAPICAL ALVEOLAR ABSCESS 05/30/2011 SALGUERO DO, PHLIIPPE K 522.5 PERIAPICAL ALVEOLAR ABSCESS 05/30/2011 SALGUERO [...] 584.9 Acute Renal Failure 06/29/2011 MUOGHALU DDS, LBOO N 780.8 Excessive Sweating 06/29/2011 MUOGHALU DDS, [...] APRNA J 786.05 Shortness Of Breath 06/29/2011 ASEHLY SPANGLERN, BOY J V65.42 Patient Education - [...] V65.42 Patient Education - Alcohol 06/29/2011 [employer]HE[employer] PRINTING MACHINIST, BYO J 278.02 Overweight 06/29/2011 ASHELY PRINTING MACHINIST, BOY J 584.9 Acute Renal Failure 06/29/2011 [employer]HE[employer] PRINTING MACHINIST, BOY J 780.8 Excessive Sweating 06/29/2011 [employer]HE[employer] PRINTING MACHINIST, BOY J 786.05 Shortness Of Breath 06/29/2011 ASHE[employer] PRINTING MACHINIST, BOY J V65.42 Patient Education - Alcohol [...] V65.42 Patient Education - Alcohol 06/29/2011 [employer]HE[employer] PRINTING MACHINIST, BOY J 278.02 Overweight 06/29/2011 ASHELY PRINTING MACHINISTBECKYBOY J 584.9 Acute Renal Failure 06/29/2011 ASHELY PRINTING MACHINIST BOY J 780.8 Excessive Sweating 06/29/2011 ASHELY PRINTING MACHINIST BOY J 786.05 Shortness Of Breath 06/29/2011 [...] APRN V65.42 Patient Education - Alcohol 06/29/2011 OBY LUND APRN 278.02 Overweight 06/29/2011 BOY LUND [...] APRN V65.42 [facility] Education - [facility]/29[facility]2011 [facility] Acute Renal Failure 06/29/2011 [facility], JACKIE R 780.8 Excessive Sweating 06/29/2011 [facility], JACKIE R 786.05 Shortness Of Breath 06/29/2011 [facility], JACKIE R V65.42 Patient Education [...] V65.42 Patient Education - Alcohol 06/29/2011 MOY PRINTING MACHINIST, CHRIS A 278.02 Overweight 06/29/2011 MOY PRINTING MACHINIST, CHRIS A 584.9 Acute Renal Failure 06/29/2011 MOY PRINTING MACHINIST, CHRIS A 780.8 Excessive Sweating 06/29/2011 MOY PRINTING MACHINIST, CHRIS A 786.05 Shortness Of Breath 06/29/2011 MOY PRINTING MACHINIST, CHRIS A V65.42 Patient Education - Alcohol [...] 07/31/2011 564.00 UNSPECIFIED CONSTIPATION 07/31/2011 SALGUERO DO, PIHLIPPE K 564.00 UNSPECIFIED CONSTIPATION 07/31/2011 564.00 UNSPECIFIED [...] DEEDEE J 564.00 UNSPECIFIED CONSTIPATION 07/31/2011 [employer] PR[employer]ING MACHINIST, BOY J 564.00 UNSPECIFIED CONSTIPATION 07/31/2011 SALGUERO DO, PHILIPPE K 564.00 UNSPECIFIED CONSTIPATION 07/31/2011 SALGUERO DO, PHILIPPE K 564.00 UNSPECIFIED CONSTIPATION 07/31/2011 [employer] PRINTING MACHINIST, BOY J 564.00 UNSPECIFIED CONSTIPATION 07/31/2011 WHITE DDS, DEEDEE J 564.00 UNSPECIFIED CONSTIPATION 07/31/2011 WHITE DDS, DEEDEE J 564.00 UNSPECIFIED CONSTIPATION 07/31/2011 SALGUERO DO, PHILIPPE K 564.00 UNSPECIFIED CONSTIPATION 07/31/2011 [employer]ING MACHINIST, BOY J 564.00 UNSPECIFIED CONSTIPATION 07/31/2011 [employer]HE[employer] PRINTING MACHINIST, BOY J 564.00 UNSPECIFIED CONSTIPATION 07/31/2011 [employer] PRINTING MACHINIST, BOY J 564.00 UNSPECIFIED CONSTIPATION 07/31/2011 [employer]HE[employer] PRINTING MACHINIST, BOY J 564.00 UNSPECIFIED CONSTIPATION 07/31/2011 SALGUERO DO, PHILIPPE K 564.00 UNSPECIFIED CONSTIPATION 07/31/2011 SALGUERO DO, PHILIPPE K 564.00 UNSPECIFIED CONSTIPATION 07/31/2011 [employer] PR[employer] MACHINIST, BOY J 564.00 UNSPECIFIED CONSTIPATION 07/31/2011 [employer]HE[employer] PRINTING MACHINIST, BOY J 564.00 UNSPECIFIED CONSTIPATION 07/31/2011 ASHELY PRINTING MACHINIST, BOY J 564.00 UNSPECIFIED CONSTIPATION 07/31/2011 SALGUERO DO, PHILIPPE K 564.00 UNSPECIFIED CONSTIPATION 07/31/2011 ASHELY PRINTING MACHINIST, BOY J 564.00 UNSPECIFIED CONSTIPATION 07/31/2011 [facility], JACKIE R 564.00 UNSPECIFIED CONSTIPATION [...] J 616.10 Vaginitis And Vulvovaginitis Unspecified 08/20/2011 SAHELY PRINTING MACHINISTJUAREZA J 724.2 LUMBAGO 08/20/2011 JUAREZ LUND APRNA [...] K 783.1 ABNORMAL WEIGHT GAIN 08/20/2011 ASHELY PRINTING MACHINIST, BOY J 616.10 Vaginitis And Vulvovaginitis Unspecified 08/20/2011 ASHELY PRINTING MACHINIST, BOY J 724.2 LUMBAGO 08/20/2011 ASHELY PRINTING MACHINIST, BOY J 783.1 ABNORMAL WEIGHT GAIN 08/20/2011 ASHELY PRINTING MACHINIST, BOY J 616.10 Vaginitis And Vulvovaginitis Unspecified 08/20/2011 ASHELY PRINTING MACHINIST, BOY J 724.2 LUMBAGO 08/20/2011 ASHELY PRINTING MACHINIST, BOY J 783.1 ABNORMAL WEIGHT GAIN 08/20/2011 ASHELY PRINTING MACHINIST, BOY J 616.10 Vaginitis And Vulvovaginitis Unspecified 08/20/2011 ASHELY PRINTING MACHINIST, BOY J 724.2 LUMBAGO 08/20/2011 ASHELY PRINTING MACHINIST, BOY J 783.1 ABNORMAL WEIGHT GAIN 08/20/2011 ASHELY PRINTING MACHINIST, BOY J 616.10 Vaginitis And Vulvovaginitis Unspecified 08/20/2011 ASHELY PRINTING MACHINIST, BOY J 724.2 LUMBAGO 08/20/2011 ASHELY PRINTING MACHINIST, BOY J 783.1 ABNORMAL WEIGHT GAIN 08/20/2011 NOEMY OLVERA PHILIPPE K 616.10 Vaginitis And Vulvovaginitis Unspecified 08/20/2011 SALGUERO DO, PHILIPPE K 724.2 LUMBAGO 08/20/2011 SALGUERO DO, PHILIPPE K 783.1 ABNORMAL WEIGHT GAIN 08/20/2011 SALGUERO DO, PHILIPPE K 616.10 Vaginitis And Vulvovaginitis Unspecified 08/20/2011 SALGUERO DO, PHILIPPE K 724.2 LUMBAGO 08/20/2011 SALGUERO , PHILIPPE K 783.1 ABNORMAL WEIGHT GAIN 08/20/2011 ASHELY PRINTING MACHINIST, BOY J 616.10 Vaginitis And Vulvovaginitis Unspecified [...] APRNINDA J 783.1 ABNORMAL WEIGHT GAIN 08/20/2011 [facility], JACKIE R 616.10 Vaginitis And Vulvovaginitis Unspecified 08/20/2011 [facility], JACKIE R 724.2 LUMBAGO 08/20/2011 [facility], JACKIE R 783.1 ABNORMAL WEIGHT GAIN 08/20/2011 SALGUERO DO, PHILIPPE K 616.10 Vaginitis And Vulvovaginitis Unspecified 08/20/2011 SALGUERO DO, PHILIPPE K 724.2 LUMBAGO 08/20/2011 SALGUERO DO, PHILIPPE K 783.1 ABNORMAL WEIGHT GAIN 08/20/2011 SALGUERO DO, PHILIPPE K 616.10 Vaginitis And Vulvovaginitis Unspecified 08/20/2011 SALGUERO DO, PHILIPPE K 724.2 LUMBAGO 08/20/2011 SALGUERO DO, PHILIPPE K 783.1 ABNORMAL WEIGHT GAIN 08/20/2011 MOY PRINTING MACHINIST, CHRIS A 616.10 Vaginitis And Vulvovaginitis Unspecified [...] PHILIPPE K 729.5 Pain In Limb 10/09/2011 SALGEURO DO, PHILIPPE K 782.3 EDEMA 10/09/2011 SALGUERO [...] DO, PHILIPPE K 782.62 Flushing 10/09/2011 ASHELY PRINTING MACHINIST BOY J 719.45 Pain In Joint Involving Pelvic Region And Thigh 10/09/2011 JUAREZ LUND APRNA J 729.5 Pain In Limb 10/09/2011 ASHELY PRINTING MACHINIST BOY J 782.3 EDEMA 10/09/2011 ASHELY PRINTING MACHINIST BOY J 782.62 Flushing 10/09/2011 WHITE DDS, [...] Pelvic Region And Thigh 10/09/2011 SALGUERO DO, PHILPIPE K 729.5 Pain In Limb 10/09/2011 SALGUERO [...] ASHELY CAPRICE BOY J 782.62 Flushing 10/09/2011 ASEHLY CAPRICE BOY J 719.45 Pain In Joint Involving Pelvic Region And Thigh 10/09/2011 ASHELY PRINTING MACHINIST, BOY J 729.5 Pain In Limb 10/09/2011 ASHELY PRINTING MACHINIST, BOY J 782.3 EDEMA 10/09/2011 ASHELY PRINTING MACHINIST, BOY J 782.62 Flushing 10/09/2011 ASHELY VASQUES [...] 729.5 Pain In Limb 10/09/2011 SALGUERO DO, PHIILPPE K 782.3 EDEMA 10/09/2011 SALGUERO DO, PHILIPPE [...] Involving Pelvic Region And Thigh 10/09/2011 MOY PRINTING MACHINIST, CHRIS A 729.5 Pain In Limb 10/09/2011 MOY PRINTING MACHINIST, CHRIS A 782.3 EDEMA 10/09/2011 MOY PRINTING MACHINIST, CHRIS A 782.62 Flushing 10/09/2011 SALGUERO DO, [...] DDS, DEEDEE J 704.8 Folliculitis 01/15/2012 ASHELY PRINTING MACHINIST, BOY J 704.8 Folliculitis 01/15/2012 SALGUERO DO, PHILIPPE K 704.8 Folliculitis 01/15/2012 SALGUERO DO, PHILIPPE K 704.8 Folliculitis 01/15/2012 ASHELY PRINTING MACHINIST, BOY J 704.8 Folliculitis 01/15/2012 WHITE DDS, DEEDEE J 704.8 Folliculitis 01/15/2012 WHITE DDS, DEEDEE J 704.8 Folliculitis 01/15/2012 SALGUERO DO, PHILIPPE K 704.8 Folliculitis 01/15/2012 ASHELY PRINTING MACHINIST, BOY J 704.8 Folliculitis 01/15/2012 ASHELY PRINTING MACHINIST, BOY J 704.8 Folliculitis 01/15/2012 ASHELY PRINTING MACHINIST, BOY J 704.8 Folliculitis 01/15/2012 ASHELY PRINTING MACHINIST, BOY J 704.8 Folliculitis 01/15/2012 SALGUERO DO, PHILIPPE K 704.8 Folliculitis 01/15/2012 SALGUERO DO, PHILIPPE K 704.8 Folliculitis 01/15/2012 ASHELY PRINTING MACHINIST, BOY J 704.8 Folliculitis 01/15/2012 ASHELY PRINTING MACHINIST, BOY J 704.8 Folliculitis 01/15/2012 ASHELY PRINTING MACHINIST, BOY J 704.8 Folliculitis 01/15/2012 SALGUERO DO, PHILIPPE K 704.8 Folliculitis 01/15/2012 ASHELY PRINTING MACHINIST, BOY J 704.8 Folliculitis 01/15/2012 JACKIE PACHECO [...] PHILIPPE K 786.07 Wheezing 02/04/2012 SALGUERO DO, PIHLIPPE K 276.8 HYPOPOTASSEMIA 02/04/2012 SALGUERO DO, PHILIPPE [...] K 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 02/04/2012 TANISHA SALUGERO DOA K 709.9 SKIN LESION [SX] 02/04/2012 [...] 728.87 Muscle Weakness (generalized) 02/04/2012 NOEMY OLVERA PHIILPPE K 786.07 Wheezing 02/04/2012 JUAREZ LUND APRNA [...] DELGADO APRNIDI A 276.8 HYPOPOTASSEMIA 02/04/2012 MOYCHRIS DELGADO APRN A 311 DEPRESSIVE DISORDER NOT ELSEWHERE CLASSIFIED 02/04/2012 CHRIS WINTER APRN A 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 02/04/2012 CHRIS WINTER APRN A 709.9 SKIN LESION [SX] 02/04/2012 EVELIN WINTER APRNIDI A 728.85 SPASM OF MUSCLE 02/04/2012 CHRIS WINTER APRN A 728.87 Muscle Weakness (generalized) 02/04/2012 EVELIN WINTER APRNIDI A 786.07 Wheezing 02/04/2012 SALGUERO TANISHA OLVERAA K 276.8 HYPOPOTASSEMIA 02/04/2012 PHILIPPE SALGUERO [...] 02/24/2012 MAEVE NARAYANAN PA-C 496 COPD 02/24/2012 SALGUREO DO, PHILIPPE K 496 COPD 02/24/2012 DEEDEE SHORT DDS 496 COPD 02/24/2012 BOY LUND APRN 496 COPD 02/24/2012 SALGUERO DO, PHILIPPE K 496 COPD 02/24/2012 SALGUERO DO, PHILIPPE K 496 COPD 02/24/2012 ASHELY PRINTING MACHINIST, BOY J 496 COPD 02/24/2012 WHITE DDS, DEEDEE J 496 COPD 02/24/2012 WHITE DDS, DEEDEE J 496 COPD 02/24/2012 SALGUERO DO, PHILIPPE K 496 COPD 02/24/2012 ASHELY PRINTING MACHINIST, BOY J 496 COPD 02/24/2012 ASHELY PRINTING MACHINIST, BOY J 496 COPD 02/24/2012 ASHELY PRINTING MACHINIST, BOY J 496 COPD 02/24/2012 ASHELY PRINTING MACHINIST, BOY J 496 COPD 02/24/2012 SALGUERO DO, PHILIPPE K 496 COPD 02/24/2012 SALGUERO DO, PHILIPPE K 496 COPD 02/24/2012 ASHELY PRINTING MACHINIST, BOY J 496 COPD 02/24/2012 ASHELY PRINTING MACHINIST, BYO J 496 COPD 02/24/2012 ASHELY PRINTING MACHINIST, BOY J 496 COPD 02/24/2012 SALGUERO DO, PHILIPPE K 496 COPD 02/24/2012 ASHELY PRINTING MACHINIST, BOY J 496 COPD 02/24/2012 [facility], JACKIE R 496 COPD 02/24/2012 ASLGUERO DO, PHILIPPE K 496 COPD 02/24/2012 SALGUERO DO, PHILIPPE K 496 COPD 02/24/2012 CHRIS WINTER APRN 496 COPD 02/24/2012 SALGUERO DO, PHILIPPE K 496 COPD 02/24/2012 ASHELY PRINTING MACHINIST, BOY J 496 COPD 02/24/2012 SALGUERO DO, PHILIPPE K 496 COPD 03/08/2012 799.81 DECREASED LIBIDO 03/08/2012 MIRI JACOBSON, LOBO Curiel 799.81 DECREASED LIBIDO 03/08/2012 799.81 DECREASED LIBIDO 03/08/2012 SALGUERO DO, PHILIPPE K 799.81 DECREASED LIBIDO 03/08/2012 SALUGERO DO, PHILIPPE K 799.81 DECREASED LIBIDO 03/08/2012 [...] DEEDEE J 799.81 DECREASED LIBIDO 03/08/2012 ASHELY PRINTING MACHINIST, BOY J 799.81 DECREASED LIBIDO 03/08/2012 SALGUERO DO, PHILIPPE K 799.81 DECREASED LIBIDO 03/08/2012 SALGUERO DO, PHILIPPE K 799.81 DECREASED LIBIDO 03/08/2012 ASHELY PRINTING MACHINIST, BOY J 799.81 DECREASED LIBIDO 03/08/2012 WHITE DDS, DEEDEE J 799.81 DECREASED LIBIDO 03/08/2012 WHITE DDS, DEEDEE J 799.81 DECREASED LIBIDO 03/08/2012 SALGUERO DO, PHILIPPE K 799.81 DECREASED LIBIDO 03/08/2012 ASHELY PRINTING MACHINIST, BOY J 799.81 DECREASED LIBIDO 03/08/2012 ASHELY PRINTING MACHINIST, BOY J 799.81 DECREASED LIBIDO 03/08/2012 ASHELY PRINTING MACHINIST, BOY J 799.81 DECREASED LIBIDO 03/08/2012 ASHELY PRINTING MACHINIST, BOY J 799.81 DECREASED LIBIDO 03/08/2012 SALGUERO DO, PHILIPPE K 799.81 DECREASED LIBIDO 03/08/2012 SALGUERO DO, PHILIPPE K 799.81 DECREASED LIBIDO 03/08/2012 ASHELY PRINTING MACHINIST, BOY J 799.81 DECREASED LIBIDO 03/08/2012 ASHELY PRINTING MACHINIST, BOY J 799.81 DECREASED LIBIDO 03/08/2012 ASHELY PRINTING MACHINIST, BOY J 799.81 DECREASED LIBIDO 03/08/2012 SALGUERO DO, PHILIPPE K 799.81 DECREASED LIBIDO 03/08/2012 ASHELY PRINTING MACHINIST, BOY J 799.81 DECREASED LIBIDO 03/08/2012 [facility], JACKIE Eastman 799.81 DECREASED LIBIDO 03/08/2012 SALGUERO DO, PHILIPPE K 799.81 DECREASED LIBIDO 03/08/2012 SALGUERO DO, PHILIPPE K 799.81 DECREASED LIBIDO 03/08/2012 CHRIS WINTER APRN 799.81 DECREASED LIBIDO 03/08/2012 SALGUERO DO, PHILIPPE K 799.81 DECREASED LIBIDO 03/08/2012 ASHELY PRINTING MACHINIST, BOY J 799.81 DECREASED LIBIDO 03/08/2012 SALGUERO [...] 782.0 DISTURBANCE OF SKIN SENSATION 04/29/2012 ASHELY PRINTING MACHINIST, BOY J 788.30 URINARY INCONTINENCE UNSPECIFIED 04/29/2012 [...] K 788.30 URINARY INCONTINENCE UNSPECIFIED 04/29/2012 ASHELY PRINTING MACHINIST, BOY J 782.0 DISTURBANCE OF SKIN SENSATION 04/29/2012 ASHELY SPANGLERN, BOY J 788.30 URINARY INCONTINENCE UNSPECIFIED 04/29/2012 ASHELY SPANGLERN, BOY J 782.0 DISTURBANCE OF SKIN SENSATION 04/29/2012 ASHELY PRINTING MACHINIST, BOY J 788.30 URINARY INCONTINENCE UNSPECIFIED 04/29/2012 ASHELY PRINTING MACHINIST, BOY J 782.0 DISTURBANCE OF SKIN SENSATION 04/29/2012 ASHELY PRINTING MACHINIST, BOY J 788.30 URINARY INCONTINENCE UNSPECIFIED 04/29/2012 ASHELY PRINTING MACHINIST, BOY J 782.0 DISTURBANCE OF SKIN SENSATION 04/29/2012 ASHELY PRINTING MACHINIST, BOY J 788.30 URINARY INCONTINENCE UNSPECIFIED 04/29/2012 SALGUERO DO, PHILIPPE K 782.0 DISTURBANCE OF SKIN SENSATION 04/29/2012 SALGUERO DO, PHILIPPE K 788.30 URINARY INCONTINENCE UNSPECIFIED 04/29/2012 SALGUERO DO, PHILIPPE K 782.0 DISTURBANCE OF SKIN SENSATION 04/29/2012 SALGUERO DO, PHILIPPE K 788.30 URINARY INCONTINENCE UNSPECIFIED 04/29/2012 ASHELY PRINTING MACHINIST, BOY J 782.0 DISTURBANCE OF SKIN SENSATION 04/29/2012 ASHELY VASQUES, BOY J 788.30 URINARY INCONTINENCE UNSPECIFIED 04/29/2012 ASHELY VASQUES, BOY J 782.0 DISTURBANCE OF SKIN SENSATION 04/29/2012 ASHELY VASQUES, BOY J 788.30 URINARY INCONTINENCE UNSPECIFIED 04/29/2012 ASHELY PRINTING MACHINIST, BOY J 782.0 DISTURBANCE OF SKIN SENSATION 04/29/2012 ASHELY VASQUES, BOY J 788.30 URINARY INCONTINENCE UNSPECIFIED 04/29/2012 SALGUERO DO, PHILIPPE K 782.0 DISTURBANCE OF SKIN SENSATION 04/29/2012 SALGUERO DO, PHILIPPE K 788.30 URINARY INCONTINENCE UNSPECIFIED 04/29/2012 ASHELY VASQUES, BOY J 782.0 DISTURBANCE OF SKIN SENSATION 04/29/2012 ASHELY VASQUES, BOY J 788.30 URINARY INCONTINENCE UNSPECIFIED 04/29/2012 [facility], JACKIE R 782.0 DISTURBANCE OF SKIN SENSATION 04/29/2012 [facility], JACKIE R 788.30 URINARY INCONTINENCE UNSPECIFIED 04/29/2012 SALGUERO DO, PHILIPPE K 782.0 DISTURBANCE OF SKIN SENSATION 04/29/2012 SALGUERO DO, PHILIPPE K 788.30 URINARY INCONTINENCE UNSPECIFIED 04/29/2012 SALGUERO DO, PHILIPPE K 782.0 DISTURBANCE OF SKIN SENSATION 04/29/2012 SALGUERO DO, PHILIPPE K 788.30 URINARY INCONTINENCE UNSPECIFIED 04/29/2012 MOY PRINTING MACHINIST, CHRIS A 782.0 DISTURBANCE OF SKIN SENSATION 04/29/2012 MOY PRINTING MACHINIST, CHRIS A 788.30 URINARY INCONTINENCE UNSPECIFIED 04/29/2012 SALGUERO DOTANISHAA K 782.0 DISTURBANCE OF SKIN SENSATION 04/29/2012 SALGUERO DO, PHILIPPE K 788.30 URINARY INCONTINENCE UNSPECIFIED 04/29/2012 ASHELY PRINTING MACHINIST, BOY J 782.0 DISTURBANCE OF SKIN SENSATION 04/29/2012 ASHELY PRINTING MACHINIST, BOY J 788.30 URINARY INCONTINENCE UNSPECIFIED 04/29/2012 [...] IN JOINT INVOLVING ANKLE AND FOOT 05/27/2012 BYO LUND APRN 719.47 PAIN IN JOINT INVOLVING [...] J 354.0 CARPAL TUNNEL SYNDROME 07/04/2012 ASHELY PRINTING MACHINIST, BOY J 368.8 BLURRY VISION 07/04/2012 ASHELY PRINTING MACHINIST, BOY J 719.40 ARTHRALGIA 07/04/2012 WHITE DDS, [...] DO, PHILIPPE K 719.40 ARTHRALGIA 07/04/2012 ASHELY PRINTING MACHINIST, BOY J 354.0 CARPAL TUNNEL SYNDROME 07/04/2012 ASHELY VASQUES BOY J 368.8 BLURRY VISION 07/04/2012 ASHELY CAPRICE, BOY J 719.40 ARTHRALGIA 07/04/2012 ASHELY PRINTING MACHINIST, BOY J 354.0 CARPAL TUNNEL SYNDROME 07/04/2012 ASHELY VASQUES, BOY J 368.8 BLURRY VISION 07/04/2012 ASHELY CAPRICE, BOY J 719.40 ARTHRALGIA 07/04/2012 ASHELY PRINTING MACHINIST BOY J 354.0 CARPAL TUNNEL SYNDROME 07/04/2012 ASHELY VASQUES BOY J 368.8 BLURRY VISION 07/04/2012 ASHELY VASQUES BOY J 719.40 ARTHRALGIA 07/04/2012 ASHELY PRINTING MACHINIST, BOY J 354.0 CARPAL TUNNEL SYNDROME 07/04/2012 ASHELY PRINTING MACHINIST, BOY J 368.8 BLURRY VISION 07/04/2012 ASHELY PRINTING MACHINIST, BOY J 719.40 ARTHRALGIA 07/04/2012 SALGUERO DO, [...] APRNA J 368.8 BLURRY VISION 07/04/2012 ASHELY VASQEUS BOY J 719.40 ARTHRALGIA 07/04/2012 JUAREZ LUND [...] JUAREZ LUND APRNA J 719.40 ARTHRALGIA 07/04/2012 [facility], JACKIE R 354.0 CARPAL TUNNEL SYNDROME 07/04/2012 [facility], JACKIE R 368.8 BLURRY VISION 07/04/2012 [facility], JACKIE R 719.40 ARTHRALGIA 07/04/2012 SALGUERO DO, PHILIPPE K 354.0 CARPAL TUNNEL SYNDROME 07/04/2012 SALGUERO DO, PHILIPPE K 368.8 BLURRY VISION 07/04/2012 SALGUERO DO, PHILIPPE K 719.40 ARTHRALGIA 07/04/2012 SALGUERO DO, PHILIPPE K 354.0 CARPAL TUNNEL SYNDROME 07/04/2012 SALGUERO DO, PHILIPPE K 368.8 BLURRY VISION 07/04/2012 SALGUERO DO, PHILIPPE K 719.40 ARTHRALGIA 07/04/2012 MOY PRINTING MACHINIST, CHRIS A 354.0 CARPAL TUNNEL SYNDROME 07/04/2012 MOY PRINTING MACHINIST, CHRIS A 368.8 BLURRY VISION 07/04/2012 MOY PRINTING MACHINIST, CHRIS A 719.40 ARTHRALGIA 07/04/2012 SALGUERO DO, PHILIPPE K 354.0 CARPAL TUNNEL SYNDROME 07/04/2012 SALGUERO DO, PHILIPPE K 368.8 BLURRY VISION 07/04/2012 SALGUERO DO, PHILIPPE K 719.40 ARTHRALGIA 07/04/2012 ASHELY PRINTING MACHINIST, BOY J 354.0 CARPAL TUNNEL SYNDROME 07/04/2012 ASHELY PRINTING MACHINIST, BOY J 368.8 BLURRY VISION 07/04/2012 ASHELY PRINTING MACHINIST, BOY J 719.40 ARTHRALGIA 07/04/2012 SALGUERO DO, [...] AND ABSCESS OF UNSPECIFIED SITES 09/07/2012 ASHELY PRINTING MACHINIST, BOY J 682.9 CELLULITIS AND ABSCESS OF UNSPECIFIED SITES 09/07/2012 SALGUERO DO, PHILIPPE K 682.9 CELLULITIS AND ABSCESS OF UNSPECIFIED SITES 09/07/2012 SALGUERO DO, PHILIPPE K 682.9 CELLULITIS AND ABSCESS OF UNSPECIFIED SITES 09/07/2012 ASHELY PRINTING MACHINIST, BOY J 682.9 CELLULITIS AND ABSCESS OF UNSPECIFIED SITES 09/07/2012 WHITE DDS, DEEDEE J 682.9 CELLULITIS AND ABSCESS OF UNSPECIFIED SITES 09/07/2012 WHITE DDS, DEEDEE J 682.9 CELLULITIS AND ABSCESS OF UNSPECIFIED SITES 09/07/2012 SALGUERO DO, PHILIPPE K 682.9 CELLULITIS AND ABSCESS OF UNSPECIFIED SITES 09/07/2012 ASHELY PRINTING MACHINIST, BOY J 682.9 CELLULITIS AND ABSCESS OF UNSPECIFIED SITES 09/07/2012 ASHELY PRINTING MACHINIST, BOY J 682.9 CELLULITIS AND ABSCESS OF UNSPECIFIED SITES 09/07/2012 ASHELY PRINTING MACHINIST, BOY J 682.9 CELLULITIS AND ABSCESS OF UNSPECIFIED SITES 09/07/2012 ASHELY PRINTING MACHINIST, BOY J 682.9 CELLULITIS AND ABSCESS OF UNSPECIFIED SITES 09/07/2012 SALGUERO DO, PHILIPPE K 682.9 CELLULITIS AND ABSCESS OF UNSPECIFIED SITES 09/07/2012 SALGUERO DO, PHILIPPE K 682.9 CELLULITIS AND ABSCESS OF UNSPECIFIED SITES 09/07/2012 ASHELY PRINTING MACHINIST, BOY J 682.9 CELLULITIS AND ABSCESS OF UNSPECIFIED SITES 09/07/2012 ASHELY PRINTING MACHINIST, BOY J 682.9 CELLULITIS AND ABSCESS OF UNSPECIFIED SITES 09/07/2012 ASHELY PRINTING MACHINIST, BOY J 682.9 CELLULITIS AND ABSCESS OF UNSPECIFIED SITES 09/07/2012 TANISHA SALGUERO DOA K 682.9 CELLULITIS AND ABSCESS OF UNSPECIFIED SITES 09/07/2012 BOY LUND APRN 682.9 CELLULITIS AND ABSCESS OF UNSPECIFIED SITES 09/07/2012 [facility], JACKIE Eastman 682.9 CELLULITIS AND ABSCESS OF [...] CONDITIONS AND FIBROSIS OF SKIN 10/06/2012 ASHELY PRINTING MACHINIST, BOY J 692.71 SUNBURN 10/06/2012 ASHELY VASQUES, [...] CONDITIONS AND FIBROSIS OF SKIN 10/06/2012 ASHELY AVSQUES, BOY J 692.71 SUNBURN 10/06/2012 ASHELY VASQUES, [...] SCAR CONDITIONS AND FIBROSIS OF SKIN 10/06/2012 [facility], JACKIE R 692.71 SUNBURN 10/06/2012 [facility], JACKIE R 709.2 SCAR CONDITIONS [...] ABNORMAL BLEEDING FROM FEMALE GENITAL TRACT 12/08/2012 ONEMY OLVERATANISHAA K 626.9 UNSPECIFIED DISORDERS OF MENSTRUATION [...] BLEEDING FROM FEMALE GENITAL TRACT 12/08/2012 [facility], JACKIE R 626.9 UNSPECIFIED DISORDERS OF MENSTRUATION [...] DEEDEE J V04.81 FLU SHOT 01/11/2013 ASHELY PRINTING MACHINIST, BOY J V04.81 FLU SHOT 01/11/2013 SALGUERO DO, PHILIPPE K V04.81 FLU SHOT 01/11/2013 SALGUERO DO, PHILIPPE K V04.81 FLU SHOT 01/11/2013 ASHELY PRINTING MACHINIST, BOY J V04.81 FLU SHOT 01/11/2013 WHITE DDS, DEEDEE J V04.81 FLU SHOT 01/11/2013 WHITE DDS, DEEDEE J V04.81 FLU SHOT 01/11/2013 SALGUERO DO, PHILIPPE K V04.81 FLU SHOT 01/11/2013 ASHELY PRINTING MACHINIST, BOY J V04.81 FLU SHOT 01/11/2013 ASHELY PRINTING MACHINIST, BOY J V04.81 FLU SHOT 01/11/2013 ASHELY PRINTING MACHINIST, BOY J V04.81 FLU SHOT 01/11/2013 ASHELY PRINTING MACHINIST, BOY J V04.81 FLU SHOT 01/11/2013 SALGUERO DO, PHILIPPE K V04.81 FLU SHOT 01/11/2013 SALGUERO DO, PHILIPPE K V04.81 FLU SHOT 01/11/2013 ASHELY PRINTING MACHINIST, BOY J V04.81 FLU SHOT 01/11/2013 ASEHLY PRINTING MACHINIST, BOY J V04.81 FLU SHOT 01/11/2013 ASHELY PRINTING MACHINIST, BOY J V04.81 FLU SHOT 01/11/2013 SALGUERO DO, PHILIPPE K V04.81 FLU SHOT 01/11/2013 ASHELY PRINTING MACHINIST, BOY J V04.81 FLU SHOT 01/11/2013 [facility], JACKIE R V04.81 FLU SHOT 01/11/2013 SALGUERO DO, PHILIPPE K V04.81 FLU SHOT 01/11/2013 SALGUERO DO, PHILIPPE K V04.81 FLU SHOT 01/11/2013 CHRIS WINTER APRN A V04.81 FLU SHOT 01/11/2013 SALGUERO DO, HPILIPPE K V04.81 FLU SHOT 01/11/2013 ASHELY PRINTING MACHINIST, BOY J V04.81 FLU SHOT 01/11/2013 SALGUERO [...] DO, PHILIPPE K 799.02 HYPOXEMIA 01/27/2013 ASHELY PRINTING MACHINIST, BOY J 799.02 HYPOXEMIA 01/27/2013 ASHELY PRINTING MACHINIST, BOY J 799.02 HYPOXEMIA 01/27/2013 ASHELY PRINTING MACHINIST, BOY J 799.02 HYPOXEMIA 01/27/2013 ASHELY PRINTING MACHINIST, BOY J 799.02 HYPOXEMIA 01/27/2013 SALGUERO DO, PHILIPPE K 799.02 HYPOXEMIA 01/27/2013 SALGUERO DO, PHILIPPE K 799.02 HYPOXEMIA 01/27/2013 ASHELY PRINTING MACHINIST, BOY J 799.02 HYPOXEMIA 01/27/2013 ASHELY PRINTING MACHINIST, BOY J 799.02 HYPOXEMIA 01/27/2013 ASHELY PRINTING MACHINIST, BOY J 799.02 HYPOXEMIA 01/27/2013 SALGUERO DO, PHILIPPE K 799.02 HYPOXEMIA 01/27/2013 ASHELY PRINTING MACHINIST, BOY J 799.02 HYPOXEMIA 01/27/2013 [facility], JACKIE R 799.02 HYPOXEMIA 01/27/2013 SALGUERO DO, PHILIPPE K 799.02 HYPOXEMIA 01/27/2013 SALGUERO DO, PHILIPPE K 799.02 HYPOXEMIA 01/27/2013 CHRIS WINTER APRN 799.02 HYPOXEMIA 01/27/2013 SALGUERO DO, PHILIPPE K 799.02 HYPOXEMIA 01/27/2013 ASHELY PRINTING MACHINIST, BOY J 799.02 HYPOXEMIA 01/27/2013 SALGUERO DO, PHILIPPE K 799.02 HYPOXEMIA 04/07/2013 SALGUERO DO, PHILIPPE K 780.52 INSOMNIA UNSPECIFIED 04/07/2013 SALGUERO DO, PHILIPPE K 780.52 INSOMNIA UNSPECIFIED 04/07/2013 SALGUERO DO, PHILIPPE K 780.52 INSOMNIA UNSPECIFIED 04/07/2013 SALGUERO DO, PHILIPPE K 780.52 INSOMNIA UNSPECIFIED 04/07/2013 SALGUERO DO, PHILIPPE K 780.52 INSOMNIA UNSPECIFIED 04/07/2013 WHITE DDS, DEEDEE [place] 780.52 INSOMNIA UNSPECIFIED 04/07/2013 MAEVE NARAYANAN PA-C 780.52 INSOMNIA UNSPECIFIED 04/07/2013 SALGUERO DO, PHILIPPE K 780.52 INSOMNIA UNSPECIFIED 04/07/2013 WHITE DDS, DEEDEE J 780.52 INSOMNIA UNSPECIFIED 04/07/2013 ASHELY PRINTING MACHINIST, BOY J 780.52 INSOMNIA UNSPECIFIED 04/07/2013 SALGUERO DO, PHILIPPE K 780.52 INSOMNIA UNSPECIFIED 04/07/2013 SALGUERO DO, PHILIPPE K 780.52 INSOMNIA UNSPECIFIED 04/07/2013 ASHELY PRINTING MACHINIST, BOY J 780.52 INSOMNIA UNSPECIFIED 04/07/2013 WHITE DDS, DEEDEE J 780.52 INSOMNIA UNSPECIFIED 04/07/2013 WHITE DDS, DEEDEE J 780.52 INSOMNIA UNSPECIFIED 04/07/2013 SALGUERO DO, PHILIPPE K 780.52 INSOMNIA UNSPECIFIED 04/07/2013 ASHELY PRINTING MACHINIST, BOY J 780.52 INSOMNIA UNSPECIFIED 04/07/2013 ASHELY PRINTING MACHINIST, BOY J 780.52 INSOMNIA UNSPECIFIED 04/07/2013 ASHELY PRINTING MACHINIST, BOY J 780.52 INSOMNIA UNSPECIFIED 04/07/2013 ASHELY PRINTING MACHINIST, BOY J 780.52 INSOMNIA UNSPECIFIED 04/07/2013 SALGUERO DO, PHILIPPE K 780.52 INSOMNIA UNSPECIFIED 04/07/2013 SALGUERO DO, PHILIPPE K 780.52 INSOMNIA UNSPECIFIED 04/07/2013 ASHELY PRINTING MACHINIST, BOY J 780.52 INSOMNIA UNSPECIFIED 04/07/2013 ASHELY PRINTING MACHINIST, BOY J 780.52 INSOMNIA UNSPECIFIED 04/07/2013 ASHELY PRINTING MACHINIST, BOY J 780.52 INSOMNIA UNSPECIFIED 04/07/2013 SALGUERO DO, PHILIPPE K 780.52 INSOMNIA UNSPECIFIED 04/07/2013 ASHELY PRINTING MACHINIST, BOY J 780.52 INSOMNIA UNSPECIFIED 04/07/2013 [facility], JACKIE R 780.52 INSOMNIA UNSPECIFIED 04/07/2013 SALGUERO DO, PHILIPPE K 780.52 INSOMNIA UNSPECIFIED 04/07/2013 SALGUERO DO, PHILIPPE K 780.52 INSOMNIA UNSPECIFIED 04/07/2013 MOY VASQUES CHRIS A 780.52 INSOMNIA UNSPECIFIED 04/07/2013 SALGUERO DO, PHILIPPE K 780.52 INSOMNIA UNSPECIFIED 04/07/2013 ASHELY PRINTING MACHINIST, BOY J 780.52 INSOMNIA UNSPECIFIED 04/07/2013 SALGUERO [...] SPANGLERN, BOY J 276.8 HYPOPOTASSEMIA 08/07/2013 ASHELY PRINTING MACHINIST, BOY J 796.2 ELEVATED BLOOD PRESSURE READING [...] VASQUES BOY J 276.8 HYPOPOTASSEMIA 08/07/2013 BECKY LNUD APRNINDA J 796.2 ELEVATED BLOOD PRESSURE READING [...] PRESSURE READING WITHOUT DIAGNOSIS OF HYPERTENSION 08/07/2013 [facility], JACKIE R 276.8 HYPOPOTASSEMIA 08/07/2013 [facility], JACKIE R 796.2 ELEVATED BLOOD [...] LUND APRN 309.81 AN PTSD 09/07/2013 ASHELY PRINTING MACHINIST, BOY J 295.70 SCHIZOAFFECTIVE DISORDER UNSPECIFIED STATE 09/07/2013 ASHELY PRINTING MACHINIST, BOY J 309.81 AN PTSD 09/07/2013 ASHELY PRINTING MACHINIST, BOY J 295.70 SCHIZOAFFECTIVE DISORDER UNSPECIFIED STATE 09/07/2013 ASHELY PRINTING MACHINIST, BOY J 309.81 AN PTSD 09/07/2013 ASHELY VASQUES, BOY J 295.70 SCHIZOAFFECTIVE DISORDER UNSPECIFIED STATE 09/07/2013 ASHELY VASQUES, BYO J 309.81 AN PTSD 09/07/2013 SALGUERO DO [...] DOA K 309.81 AN PTSD 09/07/2013 ASHELY PRINTING MACHINIST, BOY J 295.70 SCHIZOAFFECTIVE DISORDER UNSPECIFIED STATE 09/07/2013 ASHELY PRINTING MACHINIST, BOY J 309.81 AN PTSD 09/07/2013 [facility], JACKIE R 295.70 SCHIZOAFFECTIVE DISORDER UNSPECIFIED STATE 09/07/2013 [facility], JACKIE R 309.81 AN PTSD 09/07/2013 SALGUERO DO PHILIPPE K 295.70 SCHIZOAFFECTIVE DISORDER UNSPECIFIED STATE 09/07/2013 SALGUERO DO PHILIPPE K 309.81 AN PTSD 09/07/2013 SALGUERO DO PHILIPPE K 295.70 SCHIZOAFFECTIVE DISORDER UNSPECIFIED STATE 09/07/2013 SALGUERO DO PHILIPPE K 309.81 AN PTSD 09/07/2013 MOY PRINTING MACHINIST, CHRIS A 295.70 SCHIZOAFFECTIVE DISORDER UNSPECIFIED STATE 09/07/2013 MOY PRINTING MACHINIST, CHRIS A 309.81 AN PTSD 09/07/2013 SALGUERO DO PHILIPPE K 295.70 SCHIZOAFFECTIVE DISORDER UNSPECIFIED STATE 09/07/2013 SALGUERO DO PHILIPPE K 309.81 AN PTSD 09/07/2013 JUAREZ LUND APRNA J 295.70 SCHIZOAFFECTIVE DISORDER UNSPECIFIED STATE 09/07/2013 ASHELY PRINTING MACHINISTJUAREZ CurielA J 309.81 AN PTSD 09/07/2013 SALGUERO [...] PHILIPPE K V25.9 CONTRACEPTION MANAGEMENT 09/15/2013 ASHELY PRINTING MACHINIST, BOY J 530.81 GERD 09/15/2013 ASHELY PRINTING MACHINIST, BOY J 788.30 URINARY INCONTINENCE UNSPECIFIED 09/15/2013 ASHELY PRINTING MACHINIST BOY J V25.9 CONTRACEPTION MANAGEMENT 09/15/2013 ASHELY PRINTING MACHINIST, BOY J 530.81 GERD 09/15/2013 ASHELY PRINTING MACHINIST, BOY J 788.30 URINARY INCONTINENCE UNSPECIFIED 09/15/2013 ASHELY PRINTING MACHINIST BOY J V25.9 CONTRACEPTION MANAGEMENT 09/15/2013 ASHELY PRINTING MACHINIST, BOY J 530.81 GERD 09/15/2013 ASHELY PRINTING MACHINIST, BOY J 788.30 URINARY INCONTINENCE UNSPECIFIED 09/15/2013 ASHELY PRINTING MACHINIST BOY J V25.9 CONTRACEPTION MANAGEMENT 09/15/2013 ASHELY PRINTING MACHINIST, BOY J 530.81 GERD 09/15/2013 ASHELY PRINTING MACHINIST, BOY J 788.30 URINARY INCONTINENCE UNSPECIFIED 09/15/2013 [...] PHILIPPE K V25.9 CONTRACEPTION MANAGEMENT 09/15/2013 ASHELY PRINTING MACHINIST, BOY J 530.81 GERD 09/15/2013 ASHELY PRINTING MACHINIST BOY J 788.30 URINARY INCONTINENCE UNSPECIFIED 09/15/2013 ASHELY PRINTING MACHINIST BOY J V25.9 CONTRACEPTION MANAGEMENT 09/15/2013 ASHELY PRINTING MACHINIST, BOY J 530.81 GERD 09/15/2013 ASHELY PRINTING MACHINIST, BOY J 788.30 URINARY INCONTINENCE UNSPECIFIED 09/15/2013 ASHELY PRINTING MACHINIST, BOY J V25.9 CONTRACEPTION MANAGEMENT 09/15/2013 ASHELY PRINTING MACHINIST BOY J 530.81 GERD 09/15/2013 ASHELY PRINTING MACHINIST BOY J 788.30 URINARY INCONTINENCE UNSPECIFIED 09/15/2013 ASHELY PRINTING MACHINISTJUAREZA J V25.9 CONTRACEPTION MANAGEMENT 09/15/2013 SALGUERO DO, PHILIPPE K 530.81 GERD 09/15/2013 SALGUERO DO, PHILIPPE K 788.30 URINARY INCONTINENCE UNSPECIFIED 09/15/2013 SALGUERO DO, PHILIPPE K V25.9 CONTRACEPTION MANAGEMENT 09/15/2013 ASHELY PRINTING MACHINIST, BOY J 530.81 GERD 09/15/2013 ASHELY PRINTING MACHINIST, BOY J 788.30 URINARY INCONTINENCE UNSPECIFIED 09/15/2013 ASHELY PRINTING MACHINIST, BOY J V25.9 CONTRACEPTION MANAGEMENT 09/15/2013 [facility], JACKIE R 530.81 GERD 09/15/2013 [facility] 788.30 URINARY INCONTINENCE UNSPECIFIED 09/15/2013 [facility], JACKIE R V25.9 CONTRACEPTION MANAGEMENT 09/15/2013 SALGUERO DO, PHILIPPE K 530.81 GERD 09/15/2013 SALGUERO DO, PHILIPPE K 788.30 URINARY INCONTINENCE UNSPECIFIED 09/15/2013 SALGUERO DO, PHILIPPE K V25.9 CONTRACEPTION MANAGEMENT 09/15/2013 SALGUERO DO, PHILIPPE K 530.81 GERD 09/15/2013 SALGUERO DO, PHILIPPE K 788.30 URINARY INCONTINENCE UNSPECIFIED 09/15/2013 SALGUERO DO, PHILIPPE K V25.9 CONTRACEPTION MANAGEMENT 09/15/2013 MOY PRINTING MACHINIST, CHRIS A 530.81 GERD 09/15/2013 MOY PRINTING MACHINIST, CHRIS A 788.30 URINARY INCONTINENCE UNSPECIFIED 09/15/2013 MOY PRINTING MACHINIST, CHRIS A V25.9 CONTRACEPTION MANAGEMENT 09/15/2013 SALGUERO DO, PHILIPPE K 530.81 GERD 09/15/2013 SALGUERO DO, PHILIPPE K 788.30 URINARY INCONTINENCE UNSPECIFIED 09/15/2013 SALGUERO DO, PHILIPPE K V25.9 CONTRACEPTION MANAGEMENT 09/15/2013 ASHELY PRINTING MACHINIST, BOY J 530.81 GERD 09/15/2013 ASHELY PRINTING MACHINISTJUAREZA J 788.30 URINARY INCONTINENCE UNSPECIFIED 09/15/2013 ASHELY PRINTING MACHINIST, BOY J V25.9 CONTRACEPTION MANAGEMENT 09/15/2013 SALGUERO [...] LUND APRN 783.21 LOSS OF WEIGHT 10/16/2013 [facility], JACKIE R 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 10/16/2013 [facility], JACKIE R 459.89 OTHER SPECIFIED CIRCULATORY SYSTEM DISORDERS 10/16/2013 [facility], JACKIE R 727.49 OTHER GANGLION AND CYST OF SYNOVIUM TENDON AND BURSA 10/16/2013 [facility], JACKIE R 783.21 LOSS OF [...] LUND APRN 401.1 HYPERTENSION, BENIGN ESSENTIAL 12/08/2013 [facility], JACKIE R 244.9 HYPOTHYROIDISM 12/08/2013 [facility], JACKIE R 401.1 HYPERTENSION, BENIGN ESSENTIAL 12/08/2013 SALGUERO DO, PHILIPPE K 244.9 HYPOTHYROIDISM 12/08/2013 SALGUERO DO, PHILIPPE K 401.1 HYPERTENSION, BENIGN ESSENTIAL 12/08/2013 SALGUERO DO, PHILIPPE K 244.9 HYPOTHYROIDISM 12/08/2013 SALGUERO DO, PHILIPPE K 401.1 HYPERTENSION, BENIGN ESSENTIAL 12/08/2013 MOY PRINTING MACHINIST, CHRIS A 244.9 HYPOTHYROIDISM 12/08/2013 MOY PRINTING MACHINIST, CHRIS A 401.1 HYPERTENSION, BENIGN ESSENTIAL 12/08/2013 [...] APRNA J 782.1 RASH 01/08/2014 SALGUERO DO PIHLIPPE K 719.46 PAIN IN JOINT INVOLVING LOWER LEG 01/08/2014 SALGUERO DO, PHILIPPE K 782.1 RASH 01/08/2014 JUAREZ LUND APRNA J 719.46 PAIN IN JOINT INVOLVING LOWER LEG 01/08/2014 JUAREZ LUND APRNA J 782.1 RASH 01/08/2014 [facility], JACKIE R 719.46 PAIN IN JOINT INVOLVING LOWER LEG 01/08/2014 [facility], JACKIE R 782.1 RASH 01/08/2014 SALGUERO DO, PHILIPPE K 719.46 PAIN IN JOINT INVOLVING LOWER LEG 01/08/2014 SALGUERO DO, PHILIPPE K 782.1 RASH 01/08/2014 SALGUERO DO, PHILIPPE K 719.46 PAIN IN JOINT INVOLVING LOWER LEG 01/08/2014 SALGUERO DO, PHILIPPE K 782.1 RASH 01/08/2014 MOY VASQUES CHRIS A 719.46 PAIN IN JOINT INVOLVING LOWER LEG 01/08/2014 MOY PRINTING MACHINIST CHRIS A 782.1 RASH 01/08/2014 SALGUERO DO, [...] 02/04/2014 RONEL GRAVES DO Ot E920.8 03/30/2014 [facility], JACKIE R 780.4 DIZZINESS AND VERTIGO 03/30/2014 [facility], JACKIE R 780.79 OTHER MALAISE AND FATIGUE 03/30/2014 SALGUERO DO, PHILIPPE K 780.4 DIZZINESS AND VERTIGO 03/30/2014 SALGUERO DO, PHILIPPE K 780.79 OTHER MALAISE AND FATIGUE 03/30/2014 SALGUERO DO, PHILIPPE K 780.4 DIZZINESS AND VERTIGO 03/30/2014 SALGUERO DO, PHILIPPE K 780.79 OTHER MALAISE AND FATIGUE 03/30/2014 MOY SPANGLERN CHRIS A 780.4 DIZZINESS AND VERTIGO 03/30/2014 MOY PRINTING MACHINIST, CHRIS A 780.79 OTHER MALAISE AND FATIGUE 03/30/2014 SALGUERO DO, PHILIPPE K 780.4 DIZZINESS AND VERTIGO 03/30/2014 SALGUERO DO, PHILIPPE K 780.79 OTHER MALAISE AND FATIGUE 03/30/2014 ASHELY PRINTING MACHINIST, BOY J 780.4 DIZZINESS AND VERTIGO 03/30/2014 ASHELY VASQUES, BOY J 780.79 OTHER MALAISE AND FATIGUE 03/30/2014 SALGUERO DO, PHILIPPE K 780.4 DIZZINESS AND VERTIGO 03/30/2014 SALGUERO DO, PHILIPPE K 780.79 OTHER MALAISE AND FATIGUE 04/02/2014 [facility], JACKIE R 280.9 ANEMIA, IRON DEFICIENCY 04/02/2014 SALGUERO DO, PHILIPPE K 280.9 ANEMIA, IRON DEFICIENCY 04/02/2014 SALGUERO DO, PHILIPPE K 280.9 ANEMIA, IRON DEFICIENCY 04/02/2014 MOY PRINTING MACHINIST, CHRIS A 280.9 ANEMIA, IRON DEFICIENCY 04/02/2014 [...] LUMP IN HEAD AND NECK 04/10/2014 MOY PRINTING MACHINIST, CHRIS A 285.9 ANEMIA UNSPECIFIED 04/10/2014 MOY PRINTING MACHINIST, CHRIS A 723.1 CERVICALGIA 04/10/2014 MOY PRINTING MACHINIST, CHRIS A 729.5 PAIN IN LIMB 04/10/2014 MOY PRINTING MACHINIST, CHRIS A 784.2 SWELLING MASS OR LUMP IN HEAD AND NECK 04/10/2014 SALGUERO DO, PHILIPPE K 285.9 ANEMIA UNSPECIFIED 04/10/2014 SALGUERO DO, PHILIPPE K 723.1 CERVICALGIA 04/10/2014 TANISHA SALGUERO DOA K 729.5 PAIN IN LIMB 04/10/2014 TANISHA SALGUERO DOA K 784.2 SWELLING MASS OR LUMP IN HEAD AND NECK 04/10/2014 ASHELY PRINTING MACHINIST, BOY J 285.9 ANEMIA UNSPECIFIED 04/10/2014 ASHELY PRINTING MACHINIST, BOY J 723.1 CERVICALGIA 04/10/2014 ASHELY PRINTING MACHINIST, BOY J 729.5 PAIN IN LIMB 04/10/2014 ASHELY PRINTING MACHINIST, BOY J 784.2 SWELLING MASS OR LUMP [...] UTERINE BLEEDING 06/21/2014 PHILIPPE SALGUERO DO V72.31 SUBPOENA SERVER EXAM, ROUTINE 06/21/2014 PHILIPPE SALGUERO DO V73.81 HPV SCREENING 06/21/2014 PHILIPPE SALGUERO DO V76.10 BREAST CANCER SCREENING 06/21/2014 PHILIPPE SALGUERO DO V76.2 CERVICAL CANCER SCREENING (PAP SMEAR) 06/21/2014 MOYCHRIS Curiel APRN A 626.8 DYSFUNCTIONAL UTERINE BLEEDING 06/21/2014 MOY PRINTING MACHINIST, CHRIS A V72.31 SUBPOENA SERVER EXAM, ROUTINE 06/21/2014 MOY PRINTING MACHINISTCHRIS A V73.81 HPV SCREENING 06/21/2014 MOY PRINTING MACHINIST, CHRIS A V76.10 BREAST CANCER SCREENING 06/21/2014 MOY PRINTING MACHINIST, CHRIS A V76.2 CERVICAL CANCER SCREENING (PAP SMEAR) 06/21/2014 PHILIPPE SALGUERO DO 626.8 DYSFUNCTIONAL UTERINE BLEEDING 06/21/2014 PHILIPPE SALGUERO DO V72.31 SUBPOENA SERVER EXAM, ROUTINE 06/21/2014 PHILIPPE SALGUERO DO V73.81 HPV SCREENING 06/21/2014 PHILIPPE SALGUERO DO V76.10 BREAST CANCER SCREENING 06/21/2014 PHILIPPE SALGUERO DO V76.2 CERVICAL CANCER SCREENING (PAP SMEAR) 06/21/2014 BOY LUND APRN 626.8 DYSFUNCTIONAL UTERINE BLEEDING 06/21/2014 BOY LUND APRN V72.31 SUBPOENA SERVER EXAM, ROUTINE 06/21/2014 BOY LUND APRN V73.81 HPV SCREENING 06/21/2014 BOY LUND APRN V76.10 BREAST CANCER SCREENING 06/21/2014 BOY LUND APRN V76.2 CERVICAL CANCER SCREENING (PAP SMEAR) 06/21/2014 PHILIPPE SALGUERO DO 626.8 DYSFUNCTIONAL UTERINE BLEEDING 06/21/2014 PHILIPPE SALGUERO DO V72.31 SUBPOENA SERVER EXAM, ROUTINE 06/21/2014 PHILIPPE SALGUERO DO V73.81 [...] PRESENTING HAZARDS TO HEALTH 08/03/2014 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 Ot 626.8 08/13/2014 CHRIS WINTER APRN Ot 626.8 11/19/2014 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 Ot 626.8 11/20/2014 CHRIS WINTER APRN Ot [...] DOA C Ot 626.8 11/26/2014 MAGALLANES DO MYNOR C Ot V72.84 11/26/2014 MAGALLANES MYNOR C [...] DO MYNOR C Ot V72.84 12/06/2014 CHRIS WITNER PRINTING MACHINIST Ot 626.8 12/06/2014 MAGALLANES DO MYNOR C [...] MYNOR C Ot 789.00 04/17/2015 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 Ot 626.8 04/17/2015 MAGALLANES DO, MYNOR C Ot 626.8 04/17/2015 MAGALLANES DO, MYNOR C Ot V72.84 04/17/2015 MAGALLANES DO, MYNOR C Ot V74.8 04/17/2015 MAGALLANES DO, MYNOR C Ot 626.9 04/17/2015 MAGALLANES DO, MYNOR C Ot V72.84 04/17/2015 MAGALLANES DO, MYNOR C Ot 789.00 05/06/2015 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 Ot 626.8 05/06/2015 MAGALLANES DO, MYNOR C Ot 626.8 05/06/2015 MAGALLANES DO, MYNOR C Ot V72.84 05/06/2015 MAGALLANES DO, MYNOR C Ot V74.8 05/06/2015 MAGALLANES DO, MYNOR C Ot 626.9 05/06/2015 MAGALLANES DO, MYNOR C Ot V72.84 05/06/2015 MAGALLANES DO, MYNOR C Ot 789.00 05/06/2015 ELIZABETH LEYVA PRINTING MACHINIST Ot N63 05/14/2015 BEN CASTRO, LIZZIE [place] [...] IN BODY FOL UNS 05/15/2015 ELIZABETH LEYVA PRINTING MACHINIST Ot N63 05/21/2015 SONA DOMYNOR C Ot 626.9 05/21/2015 MAGALLANES DOMYNOR C Ot V72.84 05/21/2015 MAGALLANES DO MYNOR C Ot 789.00 05/21/2015 ELIZABETH LEYVA PRINTING MACHINIST Ot N63 05/21/2015 SOFIA CASTRO, ANJUM Ferreira [...] 05/24/2015 LOY CASTRO, JERRICA Hays 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 06/14/2015 SOFIA CASTRO, ANJUM [...] ANJUM Ferreira Ot C50.912 06/25/2015 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 Ot 626.8 06/25/2015 MAGALLANES DO, MYNOR C Ot 626.8 06/25/2015 MAGALLANES DO, MYNOR C Ot V72.84 06/25/2015 MAGALLANES DO, MYNOR C Ot V74.8 06/25/2015 MAGALLANES DO, MYNOR C Ot 626.9 06/25/2015 MAGALLANES DO, MYNOR C Ot V72.84 06/25/2015 MAGALLANES DO, MYNOR C Ot 789.00 06/25/2015 ELIZABETH LEYVA PRINTING MACHINIST Ot N63 06/25/2015 SOFIA CASTRO, ANJUM Ferreira Ot C50.412 06/25/2015 SOFIA CASTRO, ANJUM Hanna Ot E66.01 06/25/2015 SOFIA CASTRO, ANJUM Hanna Ot E78.5 06/25/2015 SOFIA CASTRO, ANJUM Ferreira Ot F31.9 06/25/2015 SOFIA CASTRO, ANJUM Ferreira Ot I10 06/25/2015 SOFIA CASTRO, ANJUM Ferreira Ot J44.9 06/25/2015 SOFIA CASTRO, ANJUM Hanna Ot K21.9 06/25/2015 SOFIA CATSRO, ANJUM Hanna Ot Z68.41 06/25/2015 SOFIA CASTRO, [...] ANJUM Ferreira Ot Z79.899 06/29/2015 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 Ot 626.8 06/29/2015 MAGALLANES DO, MYNOR C [...] MAEVE T Ot Z90.12 07/24/2015 CODY DIEZ CURRICULUM SUPERVISOR Ot C50.412 07/24/2015 CODY DIEZ CURRICULUM SUPERVISOR Ot E66.01 07/24/2015 CODY DIEZ CURRICULUM SUPERVISOR Ot E78.5 07/24/2015 CODY DIEZ CURRICULUM SUPERVISOR Ot F31.9 07/24/2015 CODY DIEZ CURRICULUM SUPERVISOR Ot I10 07/24/2015 CODY DIEZ CURRICULUM SUPERVISOR Ot J44.9 07/24/2015 CODY DIEZ CURRICULUM SUPERVISOR Ot K21.9 07/24/2015 CODY DIEZ CURRICULUM SUPERVISOR Ot Z17.0 07/24/2015 CODY DIEZ CURRICULUM SUPERVISOR Ot Z68.41 07/24/2015 CODY DIEZ CURRICULUM SUPERVISOR Ot Z79.899 07/30/2015 JERRICA GRANADO MD Ot [...] 08/07/2015 ANJUM BLACK MD Ot Z79.899 OTHER [facility]FP (CURRENT) DRUG THERAPY 08/09/2015 JERRICA GRANADO MD, Ot C50.912 MALIGNANT NEOPLASM OF UNSPECIFIED SITE O 08/09/2015 JERRICA GRANADO MD, Ot I10 ESSENTIAL (PRIMARY) HYPERTENSION 08/09/2015 JERRICA GRANADO MD, Ot 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 08/12/2015 ANJUM BLACK MD, Ot 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 08/12/2015 ANJUM BLACK MD Ot E66.01 MORBID (SEVERE) OBESITY DUE TO EXCESS CA 08/12/2015 ANJUM LBACK MD, Ot E78.5 HYPERLIPIDEMIA, UNSPECIFIED 08/12/2015 ANJUM BLACK MD, Ot F31.9 BIPOLAR DISORDER, UNSPECIFIED 08/12/2015 ANJUM BLACK MD Ot I10 ESSENTIAL (PRIMARY) HYPERTENSION 08/12/2015 ANJUM BLACK MD, Ot J44.9 CHRONIC OBSTRUCTIVE PULMONARY DISEASE, U 08/12/2015 ANJUM BLACK MD, Ot K21.9 GASTRO-ESOPHAGEAL REFLUX DISEASE WITHOUT 08/12/2015 ANJUM BLACK MD Ot Z68.41 BODY MASS INDEX (BMI) 40.0-44.9, ADULT 08/12/2015 ANJUM BLACK MD Ot Z79.899 OTHER [facility] (CURRENT) DRUG THERAPY 08/13/2015 DIEZ, HILAH S CURRICULUM SUPERVISOR Ot 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0 ESTROGEN RECEPTOR POSITIVE STATUS [ER+] 08/13/2015 RG CODY Sharma CURRICULUM SUPERVISOR Ot Z68.41 BODY MASS INDEX (BMI) 40.0-44.9, ADULT 08/13/2015 RG CODY Sharma CURRICULUM SUPERVISOR Ot 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 08/21/2015 ANJUM BLACK MD [...] 08/21/2015 ANJUM BLACK MD Ot 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 08/22/2015 CODY DIEZ CURRICULUM SUPERVISOR Ot 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 08/22/2015 RG CODY Sharma CURRICULUM SUPERVISOR Ot E66.01 MORBID (SEVERE) OBESITY DUE TO EXCESS CA 08/22/2015 CODY DIEZ CURRICULUM SUPERVISOR Ot E78.5 HYPERLIPIDEMIA, UNSPECIFIED 08/22/2015 CODY DIEZ CURRICULUM SUPERVISOR Ot F31.9 BIPOLAR DISORDER, UNSPECIFIED 08/22/2015 CODY DIEZ CURRICULUM SUPERVISOR Ot I10 ESSENTIAL (PRIMARY) HYPERTENSION 08/22/2015 CODY DIEZ CURRICULUM SUPERVISOR Ot J44.9 CHRONIC OBSTRUCTIVE PULMONARY DISEASE, U 08/22/2015 CODY DIEZ CURRICULUM SUPERVISOR Ot K21.9 GASTRO-ESOPHAGEAL REFLUX DISEASE WITHOUT 08/22/2015 CODY DIEZ CURRICULUM SUPERVISOR Ot Z17.0 ESTROGEN RECEPTOR POSITIVE STATUS [ER+] 08/22/2015 CODY DIEZ CURRICULUM SUPERVISOR Ot Z68.41 BODY MASS INDEX (BMI) 40.0-44.9, ADULT 08/22/2015 CODY DIEZ CURRICULUM SUPERVISOR Ot Z79.899 OTHER MCFP (CURRENT) DRUG THERAPY 09/12/2015 NIDHI CASTRO, ARUNA [...] 10/10/2015 ANJUM BLACK MD Ot Z79.899 OTHER [facility]FP (CURRENT) DRUG THERAPY 10/17/2015 ANJUM BLACK MD [...] 10/17/2015 ANJUM BLACK MD Ot Z79.899 OTHER [facility] (CURRENT) DRUG THERAPY 11/12/2015 ANJUM BLACK MD [...] 11/12/2015 ANJUM BLACK MD Ot 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 11/12/2015 ROCÍO STERN MD [...] 11/12/2015 ROCÍO STERN MD, Ot 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 11/12/2015 ROCÍO STERN MD, [...] 11/12/2015 ROCÍO STERN MD, Ot 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 11/20/2015 ROCÍO STERN MD, [...] 11/20/2015 ROCÍO STERN MD, Ot 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 01/20/2016 ROCÍO STERN MD, [...] 01/20/2016 ROCÍO STERN MD Ot 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 01/20/2016 XAVIER GARSIA Ot [...] ADULT 01/20/2016 XAVIER GARSIA Ot 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 01/28/2016 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 Ot 626.8 MENSTRUAL DISORDER NEC 01/28/2016 MAGALLANES [...] ABDOMINAL PAIN, UNSPECIFIED SITE 01/28/2016 ELIZABETH LEYVA PRINTING MACHINIST Ot N63 UNSPECIFIED LUMP IN BREAST 01/28/2016 [...] SCREENING FOR OTHER BACTER 01/28/2016 RG CODY Sharma CURRICULUM SUPERVISOR Ot 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 01/28/2016 KAREN DIEZSARAH Sharma CURRICULUM SUPERVISOR Ot E66.01 MORBID (SEVERE) OBESITY DUE TO EXCESS CA 01/28/2016 RG CODY Sharma CURRICULUM SUPERVISOR Ot E78.5 HYPERLIPIDEMIA, UNSPECIFIED 01/28/2016 KAREN DIEZSARAH Sharma CURRICULUM SUPERVISOR Ot F31.9 BIPOLAR DISORDER, UNSPECIFIED 01/28/2016 KAREN DIEZSARAH Edith CURRICULUM SUPERVISOR Ot I10 ESSENTIAL (PRIMARY) HYPERTENSION 01/28/2016 KAREN DIEZSARAH Sharma CURRICULUM SUPERVISOR Ot J44.9 CHRONIC OBSTRUCTIVE PULMONARY DISEASE, U 01/28/2016 KAREN DIEZSARAH Sharma CURRICULUM SUPERVISOR Ot K21.9 GASTRO-ESOPHAGEAL REFLUX DISEASE WITHOUT 01/28/2016 KAREN DIEZSARAH Sharma CURRICULUM SUPERVISOR Ot Z17.0 ESTROGEN RECEPTOR POSITIVE STATUS [ER+] 01/28/2016 KAREN DIEZSARAH Sharma CURRICULUM SUPERVISOR Ot Z68.41 BODY MASS INDEX (BMI) 40.0-44.9, ADULT 01/28/2016 RG CODY Sharma CURRICULUM SUPERVISOR Ot 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 01/28/2016 ADYXAVIER Ot C50.412 [...] ADULT 01/28/2016 XAVIER GARSIA Ot 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 01/28/2016 XAVIER GARSIA Ot [...] ADULT 01/28/2016 XAVIER GARSIA Ot 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 02/24/2016 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 Ot 626.8 MENSTRUAL DISORDER NEC 02/24/2016 MYNOR [...] ABDOMINAL PAIN, UNSPECIFIED SITE 02/24/2016 ELIZABETH LEYVA PRINTING MACHINIST Ot N63 UNSPECIFIED LUMP IN BREAST 02/24/2016 [...] OF UPPER-OUTER QUADRANT O 02/24/2016 CODY DIEZ CURRICULUM SUPERVISOR Ot E66.01 MORBID (SEVERE) OBESITY DUE TO EXCESS CA 02/24/2016 CODY DIEZP Ot E78.5 HYPERLIPIDEMIA, UNSPECIFIED 02/24/2016 CODY DIEZP Ot F31.9 BIPOLAR DISORDER, UNSPECIFIED 02/24/2016 CODY DIEZ Ot I10 ESSENTIAL (PRIMARY) HYPERTENSION 02/24/2016 CODY DIEZ Ot J44.9 CHRONIC OBSTRUCTIVE PULMONARY DISEASE, U 02/24/2016 CODY DIEZP Ot K21.9 GASTRO-ESOPHAGEAL REFLUX DISEASE WITHOUT 02/24/2016 CODY DIEZ CURRICULUM SUPERVISOR Ot Z17.0 ESTROGEN RECEPTOR POSITIVE STATUS [ER+] 02/24/2016 CODY DIEZ CURRICULUM SUPERVISOR Ot Z68.41 BODY MASS INDEX (BMI) 40.0-44.9, ADULT 02/24/2016 CODY DIEZ CURRICULUM SUPERVISOR Ot 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 02/24/2016 XAVIER GARSIA Ot [...] ADULT 02/24/2016 XAVIER GARSIA Ot 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 03/20/2016 XAVIER GARSIA Ot [...] ADULT 03/20/2016 XAVIER GARSIA Ot 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 04/15/2016 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 Ot 626.8 MENSTRUAL DISORDER NEC 04/15/2016 MAGALLANES DO, MYNOR C Ot 626.8 MENSTRUAL DISORDER NEC 04/15/2016 MAGALLANES DO, MYNOR C Ot V72.84 EXAM PRE-OPERATIVE NOS 04/15/2016 MAGALLANES DO, MYNOR C Ot V74.8 SCREEN-BACTERIAL DIS NEC 04/15/2016 MAGALLANES DO, MYNOR C Ot 626.9 MENSTRUAL DISORDER NOS 04/15/2016 MAGALLANES DO, MYNRO C Ot V72.84 EXAM PRE-OPERATIVE NOS 04/15/2016 MAGALLANES DO, MYNOR C Ot 789.00 ABDOMINAL PAIN, UNSPECIFIED SITE 04/15/2016 ELIZABETH LEYVA PRINTING MACHINIST Ot N63 UNSPECIFIED LUMP IN BREAST 04/15/2016 [...] SCREENING FOR OTHER BACTER 04/15/2016 CODY DIEZ CURRICULUM SUPERVISOR Ot 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 04/15/2016 CODY DIEZ CURRICULUM SUPERVISOR Ot E66.01 MORBID (SEVERE) OBESITY DUE TO EXCESS CA 04/15/2016 CODY DIEZP Ot E78.5 HYPERLIPIDEMIA, UNSPECIFIED 04/15/2016 CODY DIEZ CURRICULUM SUPERVISOR Ot F31.9 BIPOLAR DISORDER, UNSPECIFIED 04/15/2016 CODY DIEZP Ot I10 ESSENTIAL (PRIMARY) HYPERTENSION 04/15/2016 CODY DIEZ CURRICULUM SUPERVISOR Ot J44.9 CHRONIC OBSTRUCTIVE PULMONARY DISEASE, U 04/15/2016 CODY DIEZ CURRICULUM SUPERVISOR Ot K21.9 GASTRO-ESOPHAGEAL REFLUX DISEASE WITHOUT 04/15/2016 CODY DIEZ CURRICULUM SUPERVISOR Ot Z17.0 ESTROGEN RECEPTOR POSITIVE STATUS [ER+] 04/15/2016 CODY DIEZ CURRICULUM SUPERVISOR Ot Z68.41 BODY MASS INDEX (BMI) 40.0-44.9, ADULT 04/15/2016 CODY DIEZ CURRICULUM SUPERVISOR Ot Z79.899 OTHER [facility] (CURRENT) DRUG THERAPY 04/15/2016 XAVIER GARSIA Ot 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 04/15/2016 ADYXAVIER ALCOCER N Ot E66.01 MORBID (SEVERE) OBESITY DUE TO EXCESS CA 04/15/2016 XAVIER GARSIA N Ot E78.5 HYPERLIPIDEMIA, UNSPECIFIED 04/15/2016 ADYXAVIER ALCOECR N Ot F31.9 BIPOLAR DISORDER, UNSPECIFIED 04/15/2016 ADYXAVIER ALCOCER N Ot I10 ESSENTIAL (PRIMARY) HYPERTENSION 04/15/2016 XAVIER GARSIA Ot J44.9 CHRONIC OBSTRUCTIVE PULMONARY DISEASE, U 04/15/2016 ADY, BOBAN N Ot K21.9 GASTRO-ESOPHAGEAL REFLUX DISEASE WITHOUT 04/15/2016 ADY, BOBAN N Ot Z68.41 BODY MASS INDEX (BMI) 40.0-44.9, ADULT 04/15/2016 ADY, CATAN N Ot 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 05/12/2016 ADY, BOBAN N [...] 05/12/2016 ADY, BOBAN N Ot Z79.899 OTHER [facility] (CURRENT) DRUG THERAPY 05/19/2016 ADY, BOBAN N [...] 05/19/2016 ADY, BOBAN N Ot 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 06/02/2016 ADY, BOBAN N [...] ADULT 06/02/2016 XAVIER GARSIA Ot 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 06/02/2016 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 Ot 626.8 MENSTRUAL DISORDER NEC 06/02/2016 MAGALLANES [...] ABDOMINAL PAIN, UNSPECIFIED SITE 06/02/2016 ELIZABETH LEYVA PRINTING MACHINIST Ot N63 UNSPECIFIED LUMP IN BREAST 06/02/2016 [...] Ot E78.5 HYPERLIPIDEMIA, UNSPECIFIED 06/02/2016 CODY DIEZ CURRICULUM SUPERVISOR Ot F31.9 BIPOLAR DISORDER, UNSPECIFIED 06/02/2016 CODY DIEZP Ot I10 ESSENTIAL (PRIMARY) HYPERTENSION 06/02/2016 DIEZCODY SharmaP Ot J44.9 CHRONIC OBSTRUCTIVE PULMONARY DISEASE, U 06/02/2016 CODY DIEZP Ot K21.9 GASTRO-ESOPHAGEAL REFLUX DISEASE WITHOUT 06/02/2016 DIEZCODY SharmaP Ot Z17.0 ESTROGEN RECEPTOR POSITIVE STATUS [ER+] 06/02/2016 DIEZCODY Sharma CURRICULUM SUPERVISOR Ot Z68.41 BODY MASS INDEX (BMI) 40.0-44.9, ADULT 06/02/2016 DIEZCODY SharmaP Ot 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 06/02/2016 XAVIER GARSIA Veena [...] ADULT 06/02/2016 XAVIER GARSIA Ot Z79.899 OTHER [facility] (CURRENT) DRUG THERAPY 06/17/2016 ADYXAVIER N Ot [...] ADULT 06/17/2016 ADYXAVIER N Ot Z79.899 OTHER [facility] (CURRENT) DRUG THERAPY 06/18/2016 ADYXAVIER N Ot [...] 06/18/2016 ADY BOBAN N Ot Z79.899 OTHER [facility] (CURRENT) DRUG THERAPY 06/18/2016 CHRIS WINTER APRN [...] ADULT 06/18/2016 DIEZCODY REX Ot 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 06/18/2016 ADYXAVIER N Ot [...] 06/18/2016 ADY, BOBSACHI N Ot 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 06/18/2016 ADY BOBSACHI N [...] 06/18/2016 ADY, BOBAN N Ot 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 06/24/2016 ADY BOBAN N [...] 06/24/2016 XAVIER GARSIA N Ot Z79.899 OTHER [facility] (CURRENT) DRUG THERAPY 07/29/2016 XAVIER GARSIA N [...] 07/29/2016 XAVIER GARSIA N Ot 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 08/04/2016 CHRIS WINTER APRN [...] OF UPPER-OUTER QUADRANT O 08/04/2016 CODY DIEZ CURRICULUM SUPERVISOR Ot E66.01 MORBID (SEVERE) OBESITY DUE TO EXCESS CA 08/04/2016 CODY DIEZP Ot E78.5 HYPERLIPIDEMIA, UNSPECIFIED 08/04/2016 CODY DIEZP Ot F31.9 BIPOLAR DISORDER, UNSPECIFIED 08/04/2016 CODY DIEZP Ot I10 ESSENTIAL (PRIMARY) HYPERTENSION 08/04/2016 CODY DIEZP Ot J44.9 CHRONIC OBSTRUCTIVE PULMONARY DISEASE, U 08/04/2016 CODY DIEZ CURRICULUM SUPERVISOR Ot K21.9 GASTRO-ESOPHAGEAL REFLUX DISEASE WITHOUT 08/04/2016 CODY DIEZ CURRICULUM SUPERVISOR Ot Z17.0 ESTROGEN RECEPTOR POSITIVE STATUS [ER+] 08/04/2016 CODY DIEZ CURRICULUM SUPERVISOR Ot Z68.41 BODY MASS INDEX (BMI) 40.0-44.9, ADULT 08/04/2016 CODY DIEZ CURRICULUM SUPERVISOR Ot Z79.899 OTHER [facility] (CURRENT) DRUG THERAPY 08/04/2016 XAVIER GARSIA Ot [...] ADULT 08/04/2016 XAVIER GARSIA Ot 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 08/04/2016 CODY DIEZ CURRICULUM SUPERVISOR Ot 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 08/04/2016 CODY DIEZP Ot Z12.31 ENCNTR SCREEN MAMMOGRAM FOR MALIGNANT NE 08/06/2016 CODY DIEZ CURRICULUM SUPERVISOR Ot 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 08/06/2016 CODY DIEZ CURRICULUM SUPERVISOR Ot Z12.31 ENCNTR SCREEN MAMMOGRAM FOR MALIGNANT NE 08/06/2016 CODY DIEZ CURRICULUM SUPERVISOR Ot 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 08/06/2016 CODY DIEZP Ot Z12.31 ENCNTR SCREEN MAMMOGRAM FOR MALIGNANT NE 08/06/2016 CODY DIEZ CURRICULUM SUPERVISOR Ot 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 08/06/2016 CODY DIEZ CURRICULUM SUPERVISOR Ot Z12.31 ENCNTR SCREEN MAMMOGRAM FOR MALIGNANT NE 08/07/2016 CODY DIEZ CURRICULUM SUPERVISOR Ot 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 08/07/2016 CODY DIEZ CURRICULUM SUPERVISOR Ot 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 08/07/2016 CODY DIEZ CURRICULUM SUPERVISOR Ot Z12.31 ENCNTR SCREEN MAMMOGRAM FOR MALIGNANT [...] AGNT AFF ESTROG RE 08/31/2016 CODY DIEZ CURRICULUM SUPERVISOR Ot Z90.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, BILATERAL 09/07/2016 CODY DIEZ CURRICULUM SUPERVISOR Ot 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 09/07/2016 CODY DIEZ CURRICULUM SUPERVISOR Ot 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 09/07/2016 CODY DIEZ CURRICULUM SUPERVISOR Ot Z12.31 ENCNTR SCREEN MAMMOGRAM FOR MALIGNANT NE 09/07/2016 CODY DIEZP Ot Z79.818 LNG TRM (CRNT) USE OF AGNT AFF ESTROG RE 09/07/2016 CODY DIEZ CURRICULUM SUPERVISOR Ot Z90.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, BILATERAL 09/10/2016 CODY DIEZP Ot 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 09/10/2016 CODY DIEZ CURRICULUM SUPERVISOR Ot 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 09/10/2016 CODY DIEZ CURRICULUM SUPERVISOR Ot Z12.31 ENCNTR SCREEN MAMMOGRAM FOR MALIGNANT NE 09/10/2016 CODY DIEZ Ot Z79.818 LNG TRM (CRNT) USE OF AGNT AFF ESTROG RE 09/10/2016 CODY DIEZ CURRICULUM SUPERVISOR Ot Z90.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, BILATERAL [...] INDEX (BMI) 40.0-44.9, ADULT 09/10/2016 CODY DIEZ CURRICULUM SUPERVISOR Ot 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 09/10/2016 XAVIER GARSIA Veena [...] 09/10/2016 XAVIER GARSIA N Ot Z79.899 OTHER [facility] (CURRENT) DRUG THERAPY 09/10/2016 CODY DIEZ CURRICULUM SUPERVISOR Ot 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 09/10/2016 CODY DIEZ CURRICULUM SUPERVISOR Ot 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 09/10/2016 CODY DIEZ CURRICULUM SUPERVISOR Ot Z12.31 ENCNTR SCREEN MAMMOGRAM FOR MALIGNANT NE 09/10/2016 CODY DIEZ CURRICULUM SUPERVISOR Ot Z79.818 LNG TRM (CRNT) USE OF AGNT AFF ESTROG RE 09/10/2016 CODY DIEZ CURRICULUM SUPERVISOR Ot Z90.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, BILATERAL [...] 09/11/2016 XAVIER GARSIA N Ot 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 09/18/2016 ADY CATSACHI Veena Ot 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 09/18/2016 XAVIER GARSIA N Ot E66.01 MORBID (SEVERE) OBESITY DUE TO EXCESS CA 09/18/2016 ADY, CATSACHI N Ot E78.5 HYPERLIPIDEMIA, UNSPECIFIED 09/18/2016 XAVIER GASRIA N Ot F31.9 BIPOLAR DISORDER, UNSPECIFIED 09/18/2016 ADY CATSACHI Veena Ot I10 ESSENTIAL (PRIMARY) HYPERTENSION 09/18/2016 XAVIER GARSIA Veena Ot J44.9 CHRONIC OBSTRUCTIVE PULMONARY DISEASE, U 09/18/2016 XAVIER GARSIA Veena Ot K21.9 GASTRO-ESOPHAGEAL REFLUX DISEASE WITHOUT 09/18/2016 XAVIER GARSIA N Ot Z68.41 BODY MASS INDEX (BMI) 40.0-44.9, ADULT 09/18/2016 XAVIER GARSIA N Ot 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 09/27/2016 RADHA GEORGES MD [...] 10/26/2016 XAVIER GARSIA N Ot Z79.899 OTHER [facility] (CURRENT) DRUG THERAPY 10/26/2016 XAVIER GARSIA N [...] 10/26/2016 XAVIER GARSIA N Ot 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 10/26/2016 CHRIS WINTER APRN [...] SCREENING FOR OTHER BACTER 10/26/2016 CODY DIEZ CURRICULUM SUPERVISOR Ot 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 10/26/2016 CODY DIEZ CURRICULUM SUPERVISOR Ot E66.01 MORBID (SEVERE) OBESITY DUE TO EXCESS CA 10/26/2016 CODY DIEZP Ot E78.5 HYPERLIPIDEMIA, UNSPECIFIED 10/26/2016 CODY DIEZP Ot F31.9 BIPOLAR DISORDER, UNSPECIFIED 10/26/2016 CODY DIEZ CURRICULUM SUPERVISOR Ot I10 ESSENTIAL (PRIMARY) HYPERTENSION 10/26/2016 CODY DIEZP Ot J44.9 CHRONIC OBSTRUCTIVE PULMONARY DISEASE, U 10/26/2016 CODY DIEZ CURRICULUM SUPERVISOR Ot K21.9 GASTRO-ESOPHAGEAL REFLUX DISEASE WITHOUT 10/26/2016 CODY DIEZ CURRICULUM SUPERVISOR Ot Z17.0 ESTROGEN RECEPTOR POSITIVE STATUS [ER+] 10/26/2016 CODY DIEZ CURRICULUM SUPERVISOR Ot Z68.41 BODY MASS INDEX (BMI) 40.0-44.9, ADULT 10/26/2016 CODY DIEZ CURRICULUM SUPERVISOR Ot Z79.899 OTHER [facility] (CURRENT) DRUG THERAPY 10/26/2016 XAVIER GARSIA Ot [...] ADULT 10/26/2016 XAVIER GARSIA Ot Z79.899 OTHER [facility] (CURRENT) DRUG THERAPY 10/26/2016 CODY DIEZ CURRICULUM SUPERVISOR Ot 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 10/26/2016 CODY DIEZ CURRICULUM SUPERVISOR Ot 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 10/26/2016 CODY DIEZ Ot Z12.31 ENCNTR SCREEN MAMMOGRAM FOR MALIGNANT NE 10/26/2016 CODY DIEZP Ot Z79.818 LNG TRM (CRNT) USE OF AGNT AFF ESTROG RE 10/26/2016 CODY DIEZ CURRICULUM SUPERVISOR Ot Z90.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, BILATERAL 11/27/2016 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 Ot 626.8 MENSTRUAL DISORDER NEC 11/27/2016 MYNOR MAGALLANES DO Ot 626.8 MENSTRUAL DISORDER NEC 11/27/2016 MYNOR MAGALLANES DO Ot V72.84 EXAM PRE-OPERATIVE NOS 11/27/2016 MYNOR MAGALLANES DO Ot V74.8 SCREEN-BACTERIAL DIS NEC 11/27/2016 MYNOR MAGALLANES DO Ot 626.9 MENSTRUAL DISORDER NOS 11/27/2016 MYNOR MAGALLANES DO Ot V72.84 EXAM PRE-OPERATIVE NOS 11/27/2016 MYNOR MAGALLANES DO Ot 789.00 ABDOMINAL PAIN, UNSPECIFIED SITE 11/27/2016 ELIZABETH LEYVA PRINTING MACHINIST Ot N63 UNSPECIFIED LUMP IN BREAST 11/27/2016 [...] F31.9 BIPOLAR DISORDER, UNSPECIFIED 11/27/2016 CODY DIEZ CURRICULUM SUPERVISOR Ot I10 ESSENTIAL (PRIMARY) HYPERTENSION 11/27/2016 CODY DIEZP Ot J44.9 CHRONIC OBSTRUCTIVE PULMONARY DISEASE, U 11/27/2016 CODY DIEZ CURRICULUM SUPERVISOR Ot K21.9 GASTRO-ESOPHAGEAL REFLUX DISEASE WITHOUT 11/27/2016 CODY DIEZ CURRICULUM SUPERVISOR Ot Z17.0 ESTROGEN RECEPTOR POSITIVE STATUS [ER+] 11/27/2016 CODY DIEZP Ot Z68.41 BODY MASS INDEX (BMI) 40.0-44.9, ADULT 11/27/2016 CODY DIEZ CURRICULUM SUPERVISOR Ot Z79.899 OTHER [facility] (CURRENT) DRUG THERAPY 11/27/2016 CODY DIEZP Ot [...] 11/27/2016 ADY, BOBAN N Ot 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 12/02/2016 ADY, BOBAN N [...] 12/02/2016 ADY, BOBAN N Ot Z79.899 OTHER [facility] (CURRENT) DRUG THERAPY 01/01/2017 CHRIS WINTER APRN [...] ADULT 01/01/2017 CODY DIEZP Ot 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 01/01/2017 CODY DIEZ CURRICULUM SUPERVISOR Ot C50.112 MALIGNANT NEOPLASM OF CENTRAL PORTION [...] ADULT 01/01/2017 XAVIER GARSIA Ot 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 01/27/2017 CHRIS WINTER APRN [...] ADULT 01/27/2017 CODY DIEZ Ot 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 01/27/2017 DIEZ, HILAH S CURRICULUM SUPERVISOR Ot 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 01/27/2017 CODY DIEZ CURRICULUM SUPERVISOR Ot 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 01/27/2017 CODY DIEZ CURRICULUM SUPERVISOR Ot Z12.31 ENCNTR SCREEN MAMMOGRAM FOR MALIGNANT NE 01/27/2017 CODY DIEZ CURRICULUM SUPERVISOR Ot Z79.818 LNG TRM (CRNT) USE OF AGNT AFF ESTROG RE 01/27/2017 CODY DIEZ CURRICULUM SUPERVISOR Ot Z90.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, BILATERAL 01/27/2017 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 Ot 626.8 MENSTRUAL DISORDER NEC 01/27/2017 MAGALLANES [...] ABDOMINAL PAIN, UNSPECIFIED SITE 01/27/2017 ELIZABETH LEYVA PRINTING MACHINIST Ot N63 UNSPECIFIED LUMP IN BREAST 01/27/2017 [...] SCREENING FOR OTHER BACTER 01/27/2017 CODY DIEZ CURRICULUM SUPERVISOR Ot 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 01/27/2017 DIEZCODY SharmaP Ot E66.01 MORBID (SEVERE) OBESITY DUE TO EXCESS CA 01/27/2017 DIEZCODYP Ot E78.5 HYPERLIPIDEMIA, UNSPECIFIED 01/27/2017 RG CODY MATTAP Ot F31.9 BIPOLAR DISORDER, UNSPECIFIED 01/27/2017 RG CODY Sharma CURRICULUM SUPERVISOR Ot I10 ESSENTIAL (PRIMARY) HYPERTENSION 01/27/2017 RG CODY Sharma REX Ot J44.9 CHRONIC OBSTRUCTIVE PULMONARY DISEASE, U 01/27/2017 DIEZCODYP Ot K21.9 GASTRO-ESOPHAGEAL REFLUX DISEASE WITHOUT 01/27/2017 RG CODY MATTAP Ot Z17.0 ESTROGEN RECEPTOR POSITIVE STATUS [ER+] 01/27/2017 RG CODY MATTAP Ot Z68.41 BODY MASS INDEX (BMI) 40.0-44.9, ADULT 01/27/2017 DIEZCODYP Ot Z79.899 OTHER [facility] (CURRENT) DRUG THERAPY 01/27/2017 KAREN DIEZSARAH MATTAP Ot 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 01/27/2017 RG CODY MATTAP Ot 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 OVARIAN [...] ABSENCE OF BILATERAL BREASTS AN 02/11/2017 KENDY SELELRS DO Ot Z90.49 ACQUIRED ABSENCE OF OTHER [...] Ot I10 ESSENTIAL (PRIMARY) HYPERTENSION 03/24/2017 ADY CTASACHI Veena Ot J44.9 CHRONIC OBSTRUCTIVE PULMONARY DISEASE, [...] 03/24/2017 XAVIER GARSIA Veena Ot Z79.899 OTHER [facility] (CURRENT) DRUG THERAPY 03/24/2017 XAVIER GARSIA Veena [...] 05/11/2017 XAVIER GARSIA N Ot Z79.899 OTHER [facility] (CURRENT) DRUG THERAPY 05/11/2017 XAVIER GARSIA N [...] 05/24/2017 XAVIER GARSIA Veena Ot Z79.899 OTHER [facility] (CURRENT) DRUG THERAPY 05/24/2017 XAVIER GARSIA Veena [...] 06/21/2017 XAVIER GARSIA Veena Ot 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 06/21/2017 XAVIER GARSIA Veena [...] 06/22/2017 XAVIER GARSIA Veena Ot 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 06/22/2017 XAVIER GARSIA Veena Ot Z90.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, BILATERAL 06/23/2017 CODY DIEZ CURRICULUM SUPERVISOR Ot 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 06/23/2017 CODY DIEZ CURRICULUM SUPERVISOR Ot 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 06/23/2017 CODY DIEZ CURRICULUM SUPERVISOR Ot Z12.31 ENCNTR SCREEN MAMMOGRAM FOR MALIGNANT NE 06/23/2017 CODY DIEZP Ot Z79.818 LNG TRM (CRNT) USE OF AGNT AFF ESTROG RE 06/23/2017 CODY DIEZ CURRICULUM SUPERVISOR Ot Z90.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, BILATERAL 06/23/2017 XAVIER GARSIA Veena Ot 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 06/23/2017 ADY CATSACHI Veena Ot 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 06/23/2017 ADY, XAVIER Curiel Ot E66.01 MORBID (SEVERE) OBESITY DUE TO EXCESS CA 06/23/2017 DAYXAVIER Ot E78.5 HYPERLIPIDEMIA, UNSPECIFIED 06/23/2017 ADY, XAVIER [...] 06/23/2017 XAVIER GARSIA Veena Ot 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 06/23/2017 XAVIER GARSIA Veena [...] 06/24/2017 XAVIER GARSIA Veena Ot 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 06/24/2017 XAVIER GARSIA Veena Ot Z90.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, BILATERAL 07/06/2017 ALONDRA ACOSTA DO Ot K80.50 CALCULUS OF BILE DUCT W/O CHOLANGITIS OR 08/07/2017 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 Ot 626.8 MENSTRUAL DISORDER NEC 08/07/2017 MAGALLANESMYNOR [...] ABDOMINAL PAIN, UNSPECIFIED SITE 08/07/2017 ELIZABETH LEYVA PRINTING MACHINIST Ot N63 UNSPECIFIED LUMP IN BREAST 08/07/2017 [...] ADULT 08/07/2017 CODY DIEZP Ot 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 08/07/2017 CODY DIEZP Ot [...] Ot 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 08/07/2017 XVAIER GARSIA Ot F31.9 BIPOLAR DISORDER, UNSPECIFIED 08/07/2017 [...] 08/07/2017 ADYCAT ALCOCERSACHI Curiel Ot Z79.899 OTHER [facility] (CURRENT) DRUG THERAPY 08/07/2017 XAVIER GARSIA Veena [...] MAEVE Gamez Ot Z88.8 ALLERGY STATUS TO [facility] DRUG/MEDS/BIOL SUB 08/08/2017 MAEVE CHANEL MD Ot Z90.49 ACQUIRED ABSENCE OF OTHER SPECIFIED PART 08/08/2017 MAEVE CHANEL MD, Ot Z90.710 ACQUIRED ABSENCE [...] Ot F31.9 BIPOLAR DISORDER, UNSPECIFIED 08/11/2017 XAVIER GARSAI Ot I10 ESSENTIAL (PRIMARY) HYPERTENSION 08/11/2017 XAVIER [...] RE 08/11/2017 XAVIER GARSIA Ot Z79.899 OTHER [facility] (CURRENT) DRUG THERAPY 08/11/2017 XAVIER GARSIA Ot Z90.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, BILATERAL 08/19/2017 XAVIER GARSIA Veena Ot 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 08/19/2017 XAVIER GARSIA Veena Ot C50.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 [...] RE 08/19/2017 XAVIER GARSIA Ot Z79.899 OTHER [facility] (CURRENT) DRUG THERAPY 08/19/2017 XAVIER GARSIA Veena [...] N32.81 OVERACTIVE BLADDER 08/23/2017 BEN CASTRO, LIZZIE [place] Ot N39.46 MIXED INCONTINENCE 08/23/2017 BEN CASTRO, [...] INDEX (BMI) 40.0-44.9, ADULT 08/23/2017 CODY DIEZ CURRICULUM SUPERVISOR Ot 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 08/23/2017 CODY DIEZP Ot 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 08/23/2017 CODY DIEZ CURRICULUM SUPERVISOR Ot 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 08/23/2017 CODY DIEZ CURRICULUM SUPERVISOR Ot Z12.31 ENCNTR SCREEN MAMMOGRAM FOR MALIGNANT [...] 08/23/2017 XAVIER GARSIA N Ot 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 08/23/2017 XAVIER GARSIA N Ot Z90.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, BILATERAL 08/23/2017 ALONDRA ACOSTA DO Ot K80.50 CALCULUS OF BILE DUCT W/O CHOLANGITIS OR 08/23/2017 MOY, CHRIS A PRINTING MACHINIST Ot 626.8 MENSTRUAL DISORDER NEC 08/23/2017 MAGALLANESMYNOR [...] ABDOMINAL PAIN, UNSPECIFIED SITE 08/23/2017 ELIZABETH LEYVA PRINTING MACHINIST Ot N63 UNSPECIFIED LUMP IN BREAST 08/23/2017 [...] I10 ESSENTIAL (PRIMARY) HYPERTENSION 08/23/2017 CODY DIEZ CURRICULUM SUPERVISOR Ot J44.9 CHRONIC OBSTRUCTIVE PULMONARY DISEASE, U 08/23/2017 CODY DIEZ Ot K21.9 GASTRO-ESOPHAGEAL REFLUX DISEASE WITHOUT 08/23/2017 CODY DIEZ Ot Z17.0 ESTROGEN RECEPTOR POSITIVE STATUS [ER+] 08/23/2017 CODY DIEZP Ot Z68.41 BODY MASS INDEX (BMI) 40.0-44.9, ADULT 08/23/2017 CODY DIEZP Ot Z79.899 OTHER [facility] (CURRENT) DRUG THERAPY 08/23/2017 CODY DIEZ Ot [...] OF UPPER-OUTER QUADRANT O 08/23/2017 ADY XAVIER Cuirel Ot E66.01 MORBID (SEVERE) OBESITY DUE TO [...] RE 08/23/2017 XAVIER GARSIA Ot Z79.899 OTHER [facility] (CURRENT) DRUG THERAPY 08/23/2017 XAVIER GARSIA Ot [...] 09/21/2017 XAVIER GARSIA Veena Ot 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 09/21/2017 XAVIER GARSIA Veena [...] 09/22/2017 XAVIER GARSIA N Ot 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 09/22/2017 XAVIER GARSIA N [...] RE 09/28/2017 XAVIER GARSIA Ot 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 09/28/2017 XAVIER GARSIA Ot [...] bilateral breasts and nipples 10/13/2017 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 Ot 626.8 MENSTRUAL DISORDER NEC 10/13/2017 MAGALLANES [...] ABDOMINAL PAIN, UNSPECIFIED SITE 10/13/2017 ELIZABETH LEYVA PRINTING MACHINIST Ot N63 UNSPECIFIED LUMP IN BREAST 10/13/2017 [...] GASTRO-ESOPHAGEAL REFLUX DISEASE WITHOUT 10/13/2017 CODY DIEZ CURRICULUM SUPERVISOR Ot Z17.0 ESTROGEN RECEPTOR POSITIVE STATUS [ER+] 10/13/2017 CODY DIEZ Ot Z68.41 BODY MASS INDEX (BMI) 40.0-44.9, ADULT 10/13/2017 CODY DIEZ CURRICULUM SUPERVISOR Ot 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 10/13/2017 CODY DIEZ Ot [...] 10/13/2017 XAVIER GARSIA Veena Ot Z79.899 OTHER [facility] (CURRENT) DRUG THERAPY 10/13/2017 XAVIER GARSIA Veena [...] 10/21/2017 XAVIER GARSIA N Ot Z79.899 OTHER [facility] (CURRENT) DRUG THERAPY 10/21/2017 XAVIER GARSIA Veena [...] 11/08/2017 XAVIER GARSIA N Ot Z79.899 OTHER [facility] (CURRENT) DRUG THERAPY 11/08/2017 XAVIER GARSIA Ot Z90.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, BILATERAL 11/15/2017 XAVIER GARSIA Ot 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 11/15/2017 XAVIER GARSIA Veena Ot 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 11/15/2017 XAVIER GARSIA Ot E66.01 MORBID (SEVERE) OBESITY DUE TO EXCESS CA 11/15/2017 XAVIER GARSIA Veena Ot E78.5 HYPERLIPIDEMIA, UNSPECIFIED 11/15/2017 XAVIER GARSIA Veena Ot 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 11/15/2017 XAVIER GARSIA Ot F31.9 BIPOLAR DISORDER, UNSPECIFIED 11/15/2017 XAVIER GARSIA Ot I10 ESSENTIAL (PRIMARY) HYPERTENSION 11/15/2017 XAVIER GARSIA Ot J44.9 CHRONIC OBSTRUCTIVE PULMONARY DISEASE, U 11/15/2017 XAVIER GARSIA Veena Ot K21.9 GASTRO-ESOPHAGEAL REFLUX DISEASE WITHOUT 11/15/2017 XAVIER GARSIA Ot Z12.31 ENCNTR SCREEN MAMMOGRAM FOR MALIGNANT NE 11/15/2017 XAVIER GARSIA Ot Z68.41 BODY MASS INDEX (BMI) 40.0-44.9, ADULT 11/15/2017 XAVIER GARSIA Ot Z79.818 LNG TRM (CRNT) USE OF AGNT AFF ESTROG RE 11/15/2017 XAVIER GARSIA Ot 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 11/15/2017 XAVIER GARSIA Ot Z90.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, BILATERAL 12/22/2017 CHRIS WINTER APRN Ot 626.8 MENSTRUAL DISORDER NEC 12/22/2017 MYNOR MAGALLANES DO Ot 626.8 MENSTRUAL DISORDER NEC 12/22/2017 MYNOR MAGALLANES DO Ot V72.84 EXAM PRE-OPERATIVE NOS 12/22/2017 MYNOR MAGALLANES DO Ot V74.8 SCREEN-BACTERIAL DIS NEC 12/22/2017 MYNOR MAGALLANES DO Ot 626.9 MENSTRUAL DISORDER NOS 12/22/2017 MYNOR MAGALLANES DO Ot V72.84 EXAM PRE-OPERATIVE NOS 12/22/2017 MYNOR MAGALLANES DO Ot 789.00 ABDOMINAL PAIN, UNSPECIFIED SITE 12/22/2017 ELIZABETH LEYVA APRN Ot N63 UNSPECIFIED LUMP IN BREAST 12/22/2017 BEN CASTRO, LIZZIE [place] Ot N32.81 OVERACTIVE BLADDER 12/22/2017 BEN CASTRO, LIZZIE [place] Ot N39.46 MIXED INCONTINENCE 12/22/2017 BEN CASTRO, LIZZIE [place] Ot Z01.818 ENCOUNTER FOR OTHER PREPROCEDURAL EXAMIN 12/22/2017 BEN CASTRO, LIZZIE [place] Ot Z11.2 ENCOUNTER FOR SCREENING FOR OTHER BACTER 12/22/2017 SOFIA CASTRO, ANJUM Ferreira Ot C50.912 MALIGNANT NEOPLASM OF UNSPECIFIED SITE O 12/22/2017 Ot C50.912 MALIGNANT NEOPLASM OF UNSPECIFIED SITE O 12/22/2017 Ot Z01.818 ENCOUNTER FOR OTHER PREPROCEDURAL EXAMIN 12/22/2017 Ot Z11.2 ENCOUNTER FOR SCREENING FOR OTHER BACTER 12/22/2017 CODY DIEZP Ot 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 12/22/2017 CODY DIEZ CURRICULUM SUPERVISOR Ot E66.01 MORBID (SEVERE) OBESITY DUE TO EXCESS CA 12/22/2017 CODY DIEZP Ot E78.5 HYPERLIPIDEMIA, UNSPECIFIED 12/22/2017 CODY DIEZP Ot F31.9 BIPOLAR DISORDER, UNSPECIFIED 12/22/2017 CODY DIEZ CURRICULUM SUPERVISOR Ot I10 ESSENTIAL (PRIMARY) HYPERTENSION 12/22/2017 CODY DIEZP Ot J44.9 CHRONIC OBSTRUCTIVE PULMONARY DISEASE, U 12/22/2017 CODY DIEZ CURRICULUM SUPERVISOR Ot K21.9 GASTRO-ESOPHAGEAL REFLUX DISEASE WITHOUT 12/22/2017 CODY DIEZ CURRICULUM SUPERVISOR Ot Z17.0 ESTROGEN RECEPTOR POSITIVE STATUS [ER+] 12/22/2017 CODY DIEZ CURRICULUM SUPERVISOR Ot Z68.41 BODY MASS INDEX (BMI) 40.0-44.9, ADULT 12/22/2017 CODY DIEZP Ot 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 12/22/2017 CODY DIEZ CURRICULUM SUPERVISOR Ot 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 12/22/2017 CODY DIEZ CURRICULUM SUPERVISOR Ot 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 12/22/2017 RG, KARENSARAH Edith CURRICULUM SUPERVISOR Ot Z12.31 ENCNTR SCREEN MAMMOGRAM FOR MALIGNANT NE 12/22/2017 DIEZCODY Sharma CURRICULUM SUPERVISOR Ot Z79.818 LNG TRM (CRNT) USE OF AGNT AFF ESTROG RE 12/22/2017 CODY DIEZ CURRICULUM SUPERVISOR Ot Z90.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, BILATERAL 12/22/2017 ALONDRA ACOSTA DO Ot K80.50 CALCULUS OF BILE DUCT W/O CHOLANGITIS OR 12/22/2017 ADY, XAVIER Curiel Ot 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 12/22/2017 ADYXAVIER Ot 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 12/22/2017 ADYXAVIER Ot E66.01 MORBID (SEVERE) OBESITY DUE TO EXCESS CA 12/22/2017 ADYXAVIER Ot E78.5 HYPERLIPIDEMIA, UNSPECIFIED 12/22/2017 XAVIER GARSIA Ot 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 12/22/2017 ADYXAVIER Ot F31.9 BIPOLAR DISORDER, UNSPECIFIED 12/22/2017 ADYXAVIER Ot I10 ESSENTIAL (PRIMARY) HYPERTENSION 12/22/2017 XAVIER GARSIA Ot J44.9 CHRONIC OBSTRUCTIVE PULMONARY DISEASE, U 12/22/2017 ADYXAVIER Ot K21.9 GASTRO-ESOPHAGEAL REFLUX DISEASE WITHOUT 12/22/2017 ADYXAVIER ALCOCER Veena Ot Z12.31 ENCNTR SCREEN MAMMOGRAM FOR MALIGNANT NE 12/22/2017 ADY, XAVIER Curiel Ot Z68.41 BODY MASS INDEX (BMI) 40.0-44.9, ADULT 12/22/2017 ADY XAVIER Veena Ot Z79.818 LNG TRM (CRNT) USE OF AGNT AFF ESTROG RE 12/22/2017 ADY XAVIER Curiel Ot 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 12/22/2017 ADY XAVIER Curiel Ot Z90.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, BILATERAL 12/22/2017 CODY DIEZ CURRICULUM SUPERVISOR Ot 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 12/22/2017 CODY DIEZ CURRICULUM SUPERVISOR Ot 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 12/22/2017 CODY DIEZP Ot Z12.31 ENCNTR SCREEN MAMMOGRAM FOR MALIGNANT NE 12/22/2017 CODY DIEZ Ot Z79.818 LNG TRM (CRNT) USE OF AGNT AFF ESTROG RE 12/22/2017 CODY DIEZP Ot Z90.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, BILATERAL 12/22/2017 ALONDRA ACOSTA DO Ot K80.50 CALCULUS OF BILE DUCT W/O CHOLANGITIS OR 12/22/2017 ADYXAVIER N Ot 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 12/22/2017 ADYXAVIER N Ot 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 12/22/2017 XAVIER GARSIA Ot E66.01 MORBID (SEVERE) OBESITY DUE TO EXCESS CA 12/22/2017 XAVIER GARSIA Ot E78.5 HYPERLIPIDEMIA, UNSPECIFIED 12/22/2017 XAVIER GARSIA N Ot 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 12/22/2017 XAVIER GARSIA Ot F31.9 BIPOLAR DISORDER, UNSPECIFIED 12/22/2017 XAVIER GARSIA Ot I10 ESSENTIAL (PRIMARY) HYPERTENSION 12/22/2017 XAVIER GARSIA Ot J44.9 CHRONIC OBSTRUCTIVE PULMONARY DISEASE, U 12/22/2017 XAVIER GARSIA Ot K21.9 GASTRO-ESOPHAGEAL REFLUX DISEASE WITHOUT 12/22/2017 ADYXAVIER ALCOCER N Ot Z12.31 ENCNTR SCREEN MAMMOGRAM FOR MALIGNANT NE 12/22/2017 ADYXAVIER Ot Z68.41 BODY MASS INDEX (BMI) 40.0-44.9, ADULT 12/22/2017 XAVIER GARSIA N Ot Z79.818 LNG TRM (CRNT) USE OF AGNT AFF ESTROG RE 12/22/2017 ADY XAVIER N Ot Z79.899 OTHER [facility] (CURRENT) DRUG THERAPY 12/22/2017 XAVIER GARSIA Ot Z90.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, BILATERAL 12/23/2017 XAVIER GARSIA N Ot 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 12/23/2017 XAVIER GARSIA Ot 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 12/23/2017 XAVIER GARSIA Ot E66.01 MORBID (SEVERE) OBESITY DUE TO EXCESS CA 12/23/2017 XAVIER GARSIA Ot E78.5 HYPERLIPIDEMIA, UNSPECIFIED 12/23/2017 XAVIER GARSIA Ot 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 12/23/2017 XAVIER GARSIA Ot F31.9 BIPOLAR DISORDER, UNSPECIFIED 12/23/2017 XAVIER GARSIA Veena Ot I10 ESSENTIAL (PRIMARY) HYPERTENSION 12/23/2017 XAVIER GARSIA Veena Ot J44.9 CHRONIC OBSTRUCTIVE PULMONARY DISEASE, U 12/23/2017 XAVIER GARSIA Ot K21.9 GASTRO-ESOPHAGEAL REFLUX DISEASE WITHOUT 12/23/2017 XAVIER GARSIA Ot Z12.31 ENCNTR SCREEN MAMMOGRAM FOR MALIGNANT NE 12/23/2017 XAVIER GARSIA Ot Z68.41 BODY MASS INDEX (BMI) 40.0-44.9, ADULT 12/23/2017 XAVIER GARSIA Ot Z79.818 LNG TRM (CRNT) USE OF AGNT AFF ESTROG RE 12/23/2017 XAVIER GARSIA Ot 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 12/23/2017 XAVIER GARSIA Ot Z90.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, BILATERAL 12/24/2017 YANIQUE CASTRO, MAEVE Gamez Ot F31.9 BIPOLAR DISORDER, UNSPECIFIED 12/24/2017 MAEVE CHANEL MD Ot F41.9 ANXIETY DISORDER, UNSPECIFIED 12/24/2017 MAEVE CHANEL MD Ot F90.9 ATTENTION-DEFICIT HYPERACTIVITY DISORDER 12/24/2017 YANIQUE CASTRO, MAEVE Gamez Ot G25.81 RESTLESS LEGS SYNDROME 12/24/2017 YANIQUE CASTRO, MAEVE Gamez Ot G47.30 SLEEP APNEA, UNSPECIFIED 12/24/2017 YANIQUE CASTRO, MAEVE Gamez Ot I10 ESSENTIAL (PRIMARY) HYPERTENSION 12/24/2017 YANIQUE CASTRO, MAEVE Gamez Ot J44.9 CHRONIC OBSTRUCTIVE PULMONARY DISEASE, U 12/24/2017 MAEVE CHANEL MD Ot K21.9 GASTRO-ESOPHAGEAL REFLUX DISEASE WITHOUT 12/24/2017 YANIQUE CASTRO, MAEVE Gamez Ot M79.89 OTHER SPECIFIED SOFT TISSUE DISORDERS 12/24/2017 MAEVE CHANEL MD, Ot Z79.51 [facility] (CURRENT) USE OF INHALED STERO 12/24/2017 MAEVE CHANEL MD, Ot Z82.49 FAMILY HX OF ISCHEM HEART DIS AND OTH DI 12/24/2017 MAEVE CHANEL MD, Ot Z85.3 PERSONAL HISTORY OF MALIGNANT NEOPLASM O 12/24/2017 MAEVE CHANEL MD, Ot Z87.19 PERSONAL HISTORY OF OTHER DISEASES OF TH 12/24/2017 MAEVE CHANEL MD, Ot Z87.440 PERSONAL HISTORY OF URINARY (TRACT) INFE 12/24/2017 MAEVE CHANEL MD, Ot Z87.891 PERSONAL HISTORY OF NICOTINE DEPENDENCE 12/24/2017 MAEVE CHANEL MD, Ot Z88.8 ALLERGY STATUS TO [facility] DRUG/MEDS/BIOL SUB 12/24/2017 MAEVE CHANEL MD, Ot Z90.710 ACQUIRED ABSENCE OF BOTH CERVIX AND UTER 12/24/2017 MAEVE CHANEL MD, Ot Z90.89 ACQUIRED ABSENCE OF OTHER ORGANS 12/24/2017 MAEVE CHANEL MD, Ot Z91.5 PERSONAL HISTORY OF SELF-HARM 12/24/2017 MAEVE CHANEL MD, Ot Z98.51 TUBAL LIGATION STATUS 12/24/2017 MAEVE CHANEL MD, Ot Z98.890 OTHER SPECIFIED POSTPROCEDURAL STATES Procedures Code Description [place] [address] BRONCHODILATION PRE/POST 02/23/2012 73913 RESPIRATORY FLOW VOLUME LOOP 02/23/2012 46796 SPIROMETRY 02/24/2012 NEURO MEAGAN LAZO 05/01/2012 Leno Crespo 06/30/2012 83747 EXCISION BENIGN LESION 0.6- 1 cm (spcify location in [facility] description) 07/04/2012 54756 EXCISION BENIGN LESION 1.1- 2 cm (specify location in [facility] descriiption) 07/04/2012 88959 MRI BRAIN W/O & W/DYE 07/04/2012 ALBERTO WILKERSON 07/04/2012 92735 MRI BRAIN W/O CONTRAST 07/05/2012 42996 TRIGGER POINT INJ/1-2 MUS 07/21/2012 92416 ROUTINE VENIPUNCTURE 08/25/2012 04335 CMP 08/25/2012 [id number] GFR CALC (RESULT ONLY) 08/25/2012 10563 VITAMIN D 25-HYDROXY (D2,D3 , TOTAL) 08/25/2012 35220 TRIGGER POINT INJ/1-2 MUS 09/07/2012 31217 A1C (IN-HOUSE) 09/07/2012 70450 OXIMETRY - OVERNIGHT 11/08/2012 OphthalmLg Durán 12/08/2012 G0008 FLU ADMINISTRATION ( MEDICARE ONLY) 01/11/2013 UROLOGY LIZZIE CONTRERAS 01/27/2013 78927 OXIMETRY 02/27/2013 68826 THERAPUTIC INJ SQ/IM 02/27/2013 J1050 DEPO PROVERA 02/27/2013 33374 URINE TEST (IN- HOUSE) 02/27/2013 66184 ROUTINE VENIPUNCTURE 04/07/2013 G0438 PPPS, INITIAL VISIT 04/07/2013 [id number] GFR CALC (RESULT ONLY) 04/07/2013 52207 [facility] 04/07/2013 77454 ROUTINE VENIPUNCTURE 05/22/2013 J1050 DEPO PROVERA 05/22/2013 35119 THERAPUTIC INJ SQ/IM 05/22/2013 91588 CMP 05/22/2013 [id number] GFR CALC (RESULT ONLY) 05/22/2013 39346 ROUTINE VENIPUNCTURE 08/02/2013 92497 UA W/ CULTURE IF INDICATED 08/02/2013 [id number] GFR CALC (RESULT ONLY) 08/02/2013 66259 CMP 08/02/2013 22524 LIPID PANEL 08/02/2013 41681 CULTURE URINE 08/03/2013 95632 ROUTINE VENIPUNCTURE 09/15/2013 61416 THERAPUTIC INJ SQ/IM 09/15/2013 J1050 DEPO PROVERA 09/15/2013 14032 CMP 09/15/2013 [id number] GFR CALC (RESULT ONLY) 09/15/2013 59246 ROUTINE VENIPUNCTURE 12/08/2013 34860 CMP 12/08/2013 17866 TSH 12/08/2013 G0008 FLU ADMINISTRATION ( MEDICARE ONLY) 01/08/2014 24401 ROUTINE VENIPUNCTURE 03/30/2014 IRGROUP IRON GROUP (IRON,TIBC, FERRITIN) 03/30/2014 62631 PSYCH DIAGNOSTIC EVALUATION 03/30/2014 26107 CBC 03/30/2014 [id number] GFR CALC (RESULT ONLY) 03/30/2014 89798 CMP 03/30/2014 76252 IRON SERUM 03/30/2014 35258 IRON BNDNG CAP 03/30/2014 90264 TSH 03/30/2014 25895 FERRITIN 03/30/2014 18618 US HEAD (SOFT TISSUE) ULTRASOUND, HEAD 04/10/2014 56110 UA W/ CULTURE IF INDICATED 07/10/2014 84020 THERAPUTIC INJ SQ/IM 07/18/2014 J1050 DEPO PROVERA 07/18/2014 29807 TEST, URINE (IN- HOUSE) 07/18/2014 18248 ROUTINE VENIPUNCTURE MAK APARICIO MD 10/06/2017 81304 COMPREHEN METABOLIC PANEL MAK APARICIO MD 10/06/2017 43382 URINALYSIS AUTO W/SCOPE MAK APARICIO MD 10/06/2017 98573 ASSAY OF AMYLASE MAK APARICIO MD 10/06/2017 81538 ASSAY OF LIPASE MAK APARICIO MD 10/06/2017 39493 COMPLETE CBC W/AUTO DIFF WBC MAK APARICIO MD 10/06/2017 16433 CULTURE AEROBIC IDENTIFY MAK APARICIO MD 10/06/2017 42833 URINE CULTURE/COLONY COUNT MAK APARICIO MD 10/06/2017 73605 MICROBE SUSCEPTIBLE JOHN MAK APARICIO MD 10/06/2017 89057 EMERGENCY DEPT VISIT MAK APARICIO MD 10/06/2017 [...] culture - 08/08/17 02:22 Bacterial urine culture [id number] NRG COLONY COUNT >100,000/ML NRG FTX;REPORTABLE SENSITIVITY [...] 7-25 CREATININE 0.78 mg/dL 0.50-1.05 eGFR NON-AFR. [place] 89 mL/min/1.73m2 > OR=60 eGFR 103 mL/min/1.73m2 [...] 9.9 fL 7.5-12.5 ABSOLUTE NEUTROPHILS 5235 cells/uL 5993-1060 ABSOLUTE LYMPHOCYTES 2070 cells/uL 850-3900 ABSOLUTE MONOCYTES [...] CULTURE INDICATED - RESULTS TO FOLLOW NRG Complete blood count (CBC) with automated white blood cell (WBC) differential - 12/22/17 01:38 Blood leukocytes automated count (number/volume) 12.9 10*3/uL 4.3-11.0 Blood erythrocytes automated count (number/volume) 4.50 10*6/uL 4.35-5.85 Venous blood hemoglobin measurement (mass/volume) 13.3 g/dL 11.5-16.0 Blood hematocrit (volume fraction) 39 % 35-52 Automated erythrocyte mean corpuscular volume 87 [foz_us] 80-99 Automated erythrocyte mean corpuscular hemoglobin (mass per erythrocyte) 30 pg 25-34 Automated erythrocyte mean corpuscular hemoglobin concentration measurement ( mass/volume) 34 g/dL 32-36 Automated erythrocyte distribution width ratio 12.9 % 10.0-14.5 Automated blood platelet count (count/volume) 331 10*3/uL 130-400 Automated blood platelet mean volume measurement 9.4 [foz_us] 7.4-10.4 Automated blood neutrophils/100 leukocytes 53 % 42-75 Automated blood lymphocytes/100 leukocytes 30 % 12-44 Blood monocytes/100 leukocytes 5 % 0-12 Automated blood eosinophils/100 leukocytes 10 % 0-10 Automated blood basophils/100 leukocytes 1 % 0-10 Blood neutrophils automated count (number/volume) 6.9 10*3 1.8-7.8 Blood lymphocytes automated count (number/volume) 3.9 10*3 1.0-4.0 Blood monocytes automated count (number/volume) 0.7 10*3 0.0-1.0 Automated eosinophil count 1.3 10*3/uL 0.0-0.3 Automated blood basophil count (count/volume) 0.1 10*3/uL 0.0-0.1 Whole blood basic metabolic panel - 12/22/17 01:38 Serum or plasma sodium measurement (moles/volume) 142 mmol/L 135-145 Serum or plasma potassium measurement (moles/volume) 3.1 mmol/L 3.6-5.0 Serum or plasma chloride measurement (moles/volume) 110 mmol/L 98-107 Carbon dioxide 19 mmol/L 21-32 Serum or plasma anion gap determination (moles/volume) 13 mmol/L 5-14 Serum or plasma urea nitrogen measurement (mass/volume) 8 mg/dL 7-18 Serum or plasma creatinine measurement (mass/volume) 0.83 mg/dL 0.60-1.30 Serum or plasma urea nitrogen/creatinine mass ratio 10 NRG Serum or plasma creatinine measurement with calculation of estimated glomerular filtration rate > NRG Serum or plasma glucose measurement (mass/volume) 114 mg/dL 70-105 Serum or plasma calcium measurement (mass/volume) 9.2 mg/dL 8.5-10.1 Serum or plasma uric acid measurement (mass/volume) - 12/22/17 01:38 Serum or plasma uric acid measurement (mass/volume) 5.7 mg/dL 2.6-7.2 Serum or plasma C reactive protein measurement (mass/volume) - 12/22/17 01:38 Serum or plasma C reactive protein measurement (mass/volume) 0.32 mg /dL 0.00-0.50 Erythrocyte sedimentation rate by westergren method - 12/22/17 01:38 Erythrocyte sedimentation rate by westergren method 9 mm 0-30 CBC - 12/23/17 10:44 WHITE BLOOD CELL COUNT 11.7 Thousand/uL 3.8-10.8 RED BLOOD CELL COUNT 4.68 Million/uL 3.80-5.10 HEMOGLOBIN 13.7 g/dL 11.7-15.5 HEMATOCRIT 41.9 % 35.0-45.0 MCV 89.5 fL 80.0-100.0 MCH 29.3 pg 27.0-33.0 MCHC 32.7 g/dL 32.0-36.0 RDW 12.9 % 11.0-15.0 PLATELET COUNT 327 Thousand/uL 140-400 MPV 9.8 fL 7.5-12.5 ABSOLUTE NEUTROPHILS 7687 cells/uL 8877-9008 ABSOLUTE LYMPHOCYTES 2387 cells/uL 850-3900 ABSOLUTE MONOCYTES 562 cells/uL 200-950 ABSOLUTE EOSINOPHILS 948 cells/uL 15-500 ABSOLUTE BASOPHILS 117 cells/uL 0-200 NEUTROPHILS 65.7 % NRG LYMPHOCYTES 20.4 % NRG MONOCYTES 4.8 % NRG EOSINOPHILS 8.1 % NRG BASOPHILS 1.0 % NRG Encounters ACCT No. Visit Date/Time Discharge Status Pt. Type Provider Facility Loc./Unit Complaint [id number] 10/06/2017 05:55:00 10/06/2017 07:45:00 DIS Emergency ALESSANDRA CASTRO, MAK LEDESMA [id number] 10/26/2017 09:30:00 10/26/2017 23:59:59 CLS Outpatient [facility] [id number] 10/26/2017 09:30:00 Document Registration [id number] 10/25/2017 08:00:00 Document Registration [id number] 12/24/2017 00:10:00 12/24/2017 23:59:59 CLS Preadmit XAVIER GARSIA [facility] ONC [id number] 09/24/2017 16:03:00 12/23/2017 00:01:00 DIS Outpatient XAVIER GARSIA [facility] ONC [id number] 12/22/2017 00:53:00 12/22/2017 03:10:00 DIS Outpatient YANIQUE CASTRO, MAEVE Gamez [facility] ER SWELLING IN RT HAND [id number] 10/29/2017 09:06:00 10/29/2017 23:59:59 CLS Preadmit DUSTIN BALES APRN [facility] REHAB R SHOULDER PAIN [id number] 09/06/2017 13:25:00 09/21/2017 00:01:00 DIS Outpatient XAVIER GARSIA [facility] ONC [id number] 08/07/2017 23:47:00 08/08/2017 05:18:00 DIS Emergency MAEVE CHANEL MD [facility] ER VOMITING WITH MEDS [id number] 07/05/2017 07:41:00 07/05/2017 23:59:59 CLS Outpatient ALONDRA ACOSTA DO [facility] RAD CHOLEDOCHOLITHIASIS [id number] 03/23/2017 12:53:00 06/21/2017 00:01:00 DIS Outpatient XAVIER GARSIA [facility] ONC [id number] 03/05/2017 22:04:00 03/05/2017 23:41:00 DIS Emergency KENDY SELLERS DO [facility] ER RT BREAST PAIN,FEVER,POST MASTECTOMY [id number] 02/11/2017 18:47:00 02/11/2017 19:56:00 DIS Emergency KENDY SELLERS DO K [facility] ER RASH [id number] 12/01/2016 12:31:00 01/01/2017 13:08:00 DIS Outpatient XAVIER GARSIA [facility] ONC [id number] 07/28/2016 12:09:00 10/26/2016 00:01:00 DIS Outpatient XAVIER GARSIA [facility] ONC [id number] 09/27/2016 13:43:00 09/27/2016 14:58:00 DIS Emergency DESTINI CASTRO, RADHA Hawthorne [facility] ER R KNEE PAIN [id number] 08/06/2016 09:56:00 08/06/2016 23:59:59 CLS Outpatient CODY DIEZ [facility] RAD C50.112,Z79.818, Z12.31 [id number] 03/19/2016 11:42:00 06/17/2016 00:01:00 DIS Outpatient XAVIER GARSIA Veena [facility] ONC [id number] 11/19/2015 08:22:00 01/20/2016 11:04:00 DIS Outpatient JARRED CASTRO, ROCÍO [facility] ONC [id number] 10/01/2015 08:40:00 11/12/2015 11:12:00 DIS Outpatient ANJUM BLACK MD [facility] ONC [id number] 09/18/2015 08:22:00 09/18/2015 12:55:00 DIS Outpatient ARUNA TERRELL MD [facility] SDC HISTORY OR BREAST CANCER [id number] 09/12/2015 05:36:00 09/12/2015 10:45:00 DIS Outpatient ARUNA TERRELL MD [facility] PREOP HISTORY OF BREAST CANCER [id number] 08/13/2015 14:40:00 08/13/2015 23:59:59 CLS Preadmit CODY DIEZ [facility] ONC [id number] 07/25/2015 12:59:00 08/07/2015 00:01:00 DIS Outpatient ANJUM BLACK MD [facility] ONC [id number] 08/01/2015 06:55:00 08/01/2015 11:05:00 DIS Outpatient JERRICA GRANADO MD [facility] BREAST CANCER LEFT BREAST [id number] 07/30/2015 08:12:00 07/30/2015 08:29:00 DIS Outpatient JERRICA GRANADO MD [facility] PREOP BREAST CANCER LEFT BREAST [id number] 07/23/2015 14:15:00 07/23/2015 23:59:59 CLS Outpatient CODY DIEZ [facility] ONC [id number] 06/29/2015 00:19:00 06/29/2015 03:29:00 DIS Emergency MAEVE CHANEL MD [facility] ER BLOOD IN STOOL [id number] 05/23/2015 06:25:00 05/24/2015 11:00:00 DIS Outpatient JERRICA GRANADO MD [facility] CARD LEFT BREAST CANCER [id number] 05/21/2015 08:25:00 05/21/2015 23:59:59 CLS Outpatient ANJUM BLACK MD [facility] RAD BREAST CANCER INITAL STAGING [id number] 05/14/2015 06:00:00 05/14/2015 10:07:00 DIS Outpatient LIZZIE CONTRERAS MD [facility] OVERACTIVE BLADDER; VAGINAL LESION; VAGINAL FB [id number] 05/09/2015 05:49:00 05/09/2015 23:59:59 CLS Outpatient LIZZIE CONTRERAS MD [facility] PREOP OVERACTIVE BLADDER; VAGINAL LESION; VAGIONAL FB [id number] 04/17/2015 11:31:00 04/17/2015 23:59:59 CLS Outpatient ELIZABETH LEYVA APRN [facility] RAD BREAST MASS [id number] 12/06/2014 17:30:00 12/07/2014 18:30:00 DIS Outpatient JERRICA GRANADO MD [facility] ACUTE APPENDICITIS [id number] 12/06/2014 13:26:00 12/06/2014 23:59:59 CLS Outpatient MYNOR MAGALLANES DO [facility] RAD ABDOMINAL PAIN [id number] 12/06/2014 13:18:00 12/06/2014 23:59:59 CLS Preadmit MYNOR MAGALLANES DO [facility] RAD ABD PAIN [id number] 12/06/2014 11:19:00 12/06/2014 12:38:00 DIS Emergency ALONSO PARRA MD [facility] ER RIGHT SIDE ABD PAIN [id number] 11/27/2014 06:11:00 11/27/2014 18:25:00 DIS Outpatient MYNOR MAGALLANES DO [facility] ABNORMAL UTERINE BLEEDING ; FAILED NOVASURE [id number] 11/23/2014 07:02:00 11/23/2014 23:59:59 CLS Outpatient MYNOR MAGALLANES DO [facility] PREOP ABNORMAL UTERINE BLEEDING; FAILED NOVASURE [id number] 11/20/2014 07:20:00 11/20/2014 11:35:00 DIS Outpatient MYNOR MAGALLANES DO [facility] DYSFUNCTIONAL UTERINE BLEEDING [id number] 11/19/2014 08:55:00 11/19/2014 23:59:59 CLS Outpatient MYNOR MAGALLANES DO [facility] PREOP DYSFUNCTIONAL UTERINE BLEEDING [id number] 07/12/2014 09:38:00 07/12/2014 23:59:59 CLS Outpatient CHRIS WINTER APRN [facility] RAD SCREENING,DUB [id number] 02/04/2014 00:09:00 02/04/2014 00:40:00 DIS Emergency RONEL GRAVES DO [facility] ER [id number] 05/17/2013 06:36:00 05/18/2013 13:43:00 DIS Outpatient LIZZIE CONTRERAS MD [facility] [id number] 05/15/2013 09:28:00 05/15/2013 23:59:59 CLS Outpatient BENLIZZIE THOMSON MD [facility] PREOP [id number] 10/01/2012 11:14:00 10/01/2012 23:59:59 CLS Outpatient [id number] 05/22/2015 11:29:00 Document Registration [id number] 04/30/2014 10:38:00 Document Registration [id number] 04/30/2014 10:38:00 Document Registration [id number] 04/30/2014 10:37:00 Document Registration [id number] 03/03/2012 12:43:00 Document Registration [id number] 11/30/2011 15:34:00 Document Registration [id number] 04/07/2011 13:21:00 Document Registration [id number] 03/24/2011 11:32:00 Document Registration [id number] 12/26/2009 08:45:00 Document Registration [id number] 12/18/2009 08:51:00 Document Registration [id number] 12/03/2009 16:08:00 Document Registration [id number] 11/29/2009 08:46:00 Document Registration [id number] 11/21/2009 07:39:00 Document Registration [id number] 08/22/2009 11:54:00 Document Registration [id number] 12/20/2008 12:16:00 Document Registration [id number] 11/30/2008 08:21:00 Document Registration [id number] 11/19/2008 16:36:00 Document Registration [id number] 11/09/2008 08:08:00 Document Registration [id number] 08/03/2014 10:10:00 08/03/2014 23:59:59 CLS Outpatient PHILIPPE SALGUERO DO [id number] 07/19/2014 11:04:00 07/19/2014 23:59:59 CLS Outpatient BOY LNUD APRN [id number] 07/18/2014 14:08:00 07/18/2014 23:59:59 CLS Outpatient PHILIPPE SALGUERO DO [id number] 07/10/2014 13:29:00 07/10/2014 23:59:59 CLS Outpatient CHRIS WINTER APRN [id number] 06/29/2014 08:24:00 06/29/2014 23:59:59 CLS Outpatient SALGUERO DO, PHILIPPE Hanna [id number] 04/10/2014 11:18:00 04/10/2014 23:59:59 CLS Outpatient PHILIPPE SALGUERO DO Hanna [id number] 03/30/2014 14:55:00 03/30/2014 23:59:59 [id number] 02/09/2014 09:53:00 02/09/2014 23:59:59 CLS Outpatient SALGUERO PHILIPPE Ferreira [id number] 02/08/2014 11:58:00 02/08/2014 23:59:59 CLS Outpatient BOY LUND APRN [id number] 02/08/2014 11:58:00 02/08/2014 23:59:59 CLS Outpatient BOY LUND APRN [id number] 01/09/2014 11:47:00 01/09/2014 23:59:59 CLS Outpatient BOY LUND APRN [id number] 01/09/2014 11:47:00 01/09/2014 23:59:59 CLS Outpatient BOY LUND APRN [id number] 01/08/2014 10:59:00 01/08/2014 23:59:59 CLS Outpatient SALGUERO PHILIPPE OLVERA [id number] 12/08/2013 13:56:00 12/08/2013 23:59:59 CLS Outpatient TANISHA SALGUERO DORomán Ferreira [id number] 12/07/2013 10:42:00 12/07/2013 23:59:59 CLS Outpatient BOY LUND APRN [id number] 10/31/2013 14:19:00 10/31/2013 23:59:59 CLS Outpatient BOY LUND APRN [id number] 10/31/2013 14:19:00 10/31/2013 23:59:59 CLS Outpatient BOY LUND APRN [id number] 10/16/2013 11:01:00 10/16/2013 23:59:59 CLS Outpatient SALGUERO PHILIPPE OLVERA [id number] 10/06/2013 11:06:00 10/06/2013 23:59:59 CLS Outpatient DEEDEE SHORT DDS [id number] 09/27/2013 16:06:00 09/27/2013 23:59:59 CLS Outpatient BOY LUND APRN [id number] 09/27/2013 16:06:00 09/27/2013 23:59:59 CLS Outpatient BOY LUND APRN [id number] 09/19/2013 00:00:00 09/19/2013 23:59:59 CLS Outpatient WHITE DDSDEEDEE [id number] 09/15/2013 09:35:00 09/15/2013 23:59:59 CLS Outpatient SALGUERO DOPHILIPPE [id number] 09/15/2013 09:35:00 09/15/2013 23:59:59 CLS Outpatient SALGUERO DOPHILIPPE [id number] 09/07/2013 12:40:00 09/07/2013 23:59:59 CLS Outpatient BOY LUND APRN [place] [id number] 09/01/2013 10:36:00 09/01/2013 23:59:59 CLS Outpatient WHITE DDSDEEDEE [id number] 08/07/2013 09:51:00 08/07/2013 23:59:59 CLS Outpatient SALGUERO DOPHILIPPE [id number] 08/02/2013 12:13:00 08/02/2013 23:59:59 CLS Outpatient MAEVE NARAYANAN PA-C [id number] 07/25/2013 11:41:00 07/25/2013 23:59:59 CLS Outpatient WHITE DDSDEEDEE [id number] 07/03/2013 16:31:00 07/03/2013 23:59:59 CLS Outpatient SALGUERO DOPHILIPPE [id number] 05/22/2013 13:20:00 05/22/2013 23:59:59 CLS Outpatient SALGUERO DOPHILIPPE [id number] 05/22/2013 13:20:00 05/22/2013 23:59:59 CLS Outpatient SALGUERO DO, PHILIPPE Ferreira [id number] 04/07/2013 12:55:00 04/07/2013 23:59:59 CLS Outpatient SALGUERO DOPHILIPPE [id number] 04/07/2013 12:55:00 04/07/2013 23:59:59 CLS Outpatient SALGUERO DOPHILIPPE [id number] 02/27/2013 09:52:00 02/27/2013 23:59:59 CLS Outpatient SALGUERO DOPHILIPPE [id number] 02/27/2013 09:52:00 02/27/2013 23:59:59 CLS Outpatient SALGUERO DOPHILIPPE [id number] 01/27/2013 13:52:00 01/27/2013 23:59:59 CLS Outpatient NOEMY DOPHILIPPE [id number] 01/11/2013 09:50:00 01/11/2013 23:59:59 CLS Outpatient NOEMY DOPHILIPPE [id number] 07/21/2012 09:13:00 07/21/2012 23:59:59 CLS Outpatient NOEMY DOPHILIPPE [id number] 07/04/2012 17:00:00 07/04/2012 23:59:59 CLS Outpatient SALGUERO DOPHILIPPE [id number] 05/27/2012 16:26:00 05/27/2012 23:59:59 CLS Outpatient SALGUERO DOPHILIPPE [id number] 04/29/2012 15:48:00 04/29/2012 23:59:59 CLS Outpatient [id number] 04/06/2012 10:14:00 04/06/2012 23:59:59 CLS Outpatient LOBO CHERY DDS Veena [id number] 03/08/2012 09:54:00 03/08/2012 23:59:59 CLS Outpatient [id number] 02/04/2012 08:39:00 02/04/2012 23:59:59 CLS Outpatient SALGUERO DOPHILIPPE [id number] 12/08/2012 10:16:00 Document Registration [id number] 12/08/2012 10:16:00 Document Registration [id number] 11/05/2012 09:28:00 Document Registration [id number] 10/10/2012 10:09:00 Document Registration [id number] 10/06/2012 10:28:00 Document Registration [id number] 09/07/2012 11:04:00 Document Registration [id number] 08/25/2012 13:39:00 Document Registration [id number] 07/21/2012 09:13:00 Document Registration [id number] 10/08/2017 15:48:42 ACT Document Registration [id number] 10/11/2017 12:00:00 10/11/2017 23:59:59 CLS [facility] [id number] 12/23/2017 09:40:00 Document Registration [id number] 06/07/2017 14:20:00 Document Registration [id number] 06/03/2017 10:20:00 Document Registration [id number] 05/04/2017 08:20:00 Document Registration [id number] 09/17/2017 00:00:00 09/17/2017 13:33:00 DIS Outpatient Arlet Puckett [id number] 09/08/2017 09:15:00 09/08/2017 23:59:00 DIS Outpatient Arlet Puckett
== END 2018-01-10 15:58 | disposition home or self-care (01) ==
LOC: EDUNIT# 15:33 → ER 15:34
DX: S60.455A Superficial foreign body of left ring finger, initial encounter (principal); G47.30 Sleep apnea, unspecified; J44.9 Chronic obstructive pulmonary disease, unspecified; I10 Essential (primary) hypertension; G25.81 Restless legs syndrome; K21.9 Gastro-esophageal reflux disease without esophagitis; F90.9 Attention-deficit hyperactivity disorder, unspecified type; F41.9 Anxiety disorder, unspecified; F31.9 Bipolar disorder, unspecified; Z82.49 Family history of ischemic heart disease and other diseases of the circulatory system; Z91.5 Personal history of self-harm; Z85.3 Personal history of malignant neoplasm of breast; Z87.19 Personal history of other diseases of the digestive system; Z87.448 Personal history of other diseases of urinary system; Z88.8 Allergy status to other drugs, medicaments and biological substances; Z88.6 Allergy status to analgesic agent; Z98.51 Tubal ligation status; Z90.710 Acquired absence of both cervix and uterus; Z98.890 Other specified postprocedural states; Z90.89 Acquired absence of other organs; Z79.51 Long term (current) use of inhaled steroids; Z87.891 Personal history of nicotine dependence; X58.XXXA Exposure to other specified factors, initial encounter
CPT/HCPCS: 99282

== ENCOUNTER 2018-02-23 19:10 | Outpatient (CLI) | payer MEDICARE, MEDICAID | END 2018-02-24 05:00 | disposition home or self-care (01) | LOC: SLEEP 19:10 | PROVIDERS: ATTEND Nurse Practitioner Family | DX: G47.34 Idiopathic sleep related nonobstructive alveolar hypoventilation (principal); R06.83 Snoring; G47.00 Insomnia, unspecified; I10 Essential (primary) hypertension; F39 Unspecified mood [affective] disorder | CPT/HCPCS: 95810 ==

== ENCOUNTER → 2018-03-01 | Outpatient (CLI) | payer MEDICARE, MEDICAID ==
[~2018-03-01] MED LIST changes: +IOHEXOL 350 MG/ML 100 ML (OMNIPAQUE 350) VIAL IV ONE; +NS 250 ML (IVPB) BAG IV ONE; +RECEIVED CONTRAST (Hold Metformin) IV SCH
--- NOTE | 2018-03-01 12:48 | Diagnostic Imaging Report ---
PROCEDURE: CT chest with contrast only. TECHNIQUE: Multiple contiguous axial images were obtained through the chest after administration of intravenous contrast. INDICATION: Shortness of breath, cough. COMPARISON: There are no prior CT of the chest examinations available for comparison. The prior PET/CT exam of 06/14/2015 was reviewed. The plain film examination of the chest performed 08/08/2017 failed to show any sign of an acute cardiopulmonary abnormality. FINDINGS: There are a few coarse interstitial densities in both upper lobes particularly on the right. I suspect that these are chronic in nature. These seem similar to the prior PET/CT exam. The lungs are otherwise generally clear and well aerated. There is no sign of failure, pneumonia or pleural effusion. There is no parenchymal lung mass identified either. The heart size is within normal limits. There may be a small amount of fluid in the superior pericardium but there is no pericardial effusion identified. The fluid in the pericardium was present on the prior PET/CT exam. The aorta is not abnormally dilated and there is no sign of a dissection. The pulmonary arteries were not fully opacified and consequently difficult to assess. There is no definite defect within the pulmonary arteries to indicate a pulmonary embolism. There is no mediastinal or hilar adenopathy. There is a small 4 mm area of diminished density in the left lobe of the thyroid. This was not clearly present on the prior PET/CT exam. This finding is unlikely to be significant but ultrasound of the thyroid would be recommended for further study. In the interval since the previous PET/CT exam the patient has undergone a bilateral mastectomy. There is no sign of a mass lesion. There is a roughly 1 cm lymph node in the left axilla. The PET/CT exam did show a similar sized lymph node in the left axilla although that lymph node had more of a fatty hilum than this lymph node. I would recommend ultrasound of the left axilla be performed to better characterize this finding. The sections through the upper abdomen fail to show any sign of an acute abnormality. 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 The bone windows show no evidence for a fracture or for a destructive lesion. IMPRESSION: 1. There is no evidence for an acute cardiopulmonary abnormality. There is no sign of a lung mass either. 2. There are postoperative changes consistent with an interval bilateral mastectomy. 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 3. Ultrasound would also be recommended to better evaluate the 4 mm nodule in the left lobe of the thyroid. Dictated by: Dictated on workstation # [id number]
== END ==
LOC: RAD 11:14
PROVIDERS: ATTEND Nurse Practitioner Adult Health
DX: C50.112 Malignant neoplasm of central portion of left female breast (principal); R06.02 Shortness of breath; Z90.13 Acquired absence of bilateral breasts and nipples
CPT/HCPCS: 71260

== ENCOUNTER 2018-03-02 12:35 | Outpatient (RCR) | payer MEDICARE, MEDICAID ==
[2018-02-16 09:15] LABS: BASOPHILS # (AUTO) 0.1 10^3/uL (0.0-0.1); BASOPHILS % (AUTO) 1 % (0-10); EOSINOPHILS # (AUTO) 1.2 10^3/uL (0.0-0.3); EOSINOPHILS % (AUTO) 10 % (0-10); HEMATOCRIT 42 % (35-52); HEMOGLOBIN 13.7 G/DL (11.5-16.0); LYMPHOCYTES # (AUTO) 2.5 X 10^3 (1.0-4.0); LYMPHOCYTES % (AUTO) 20 % (12-44); MEAN CORPUSCULAR HEMOGLOBIN 29 PG (25-34); MEAN CORPUSCULAR HGB CONC 33 G/DL (32-36); MEAN CORPUSCULAR VOLUME 89 FL (80-99); MEAN PLATELET VOLUME 8.9 FL (7.4-10.4); MONOCYTES # (AUTO) 0.7 X 10^3 (0.0-1.0); MONOCYTES % (AUTO) 5 % (0-12); NEUTROPHILS # (AUTO) 8.4 X 10^3 (1.8-7.8); NEUTROPHILS % (AUTO) 65 % (42-75); PLATELET COUNT 328 10^3/uL (130-400); RED CELL DISTRIBUTION WIDTH 12.5 % (10.0-14.5); WHITE BLOOD COUNT 12.9 10^3/uL (4.3-11.0)
[2018-02-16 09:37] LABS: ALANINE AMINOTRANSFERASE 34 U/L (0-55); ALBUMIN 4.2 GM/DL (3.2-4.5); ALKALINE PHOSPHATASE 97 U/L (40-136); BILIRUBIN,TOTAL 0.4 MG/DL (0.1-1.0); BUN/CREATININE RATIO 16; CALCIUM 9.6 MG/DL (8.5-10.1); CARBON DIOXIDE 22 MMOL/L (21-32); CHLORIDE 109 MMOL/L (98-107); CREATININE SERUM 0.86 MG/DL (0.60-1.30); GFR ESTIMATED > 60; GLUCOSE 90 MG/DL (70-105); POTASSIUM 3.7 MMOL/L (3.6-5.0); SODIUM 141 MMOL/L (135-145); TOTAL PROTEIN 6.9 GM/DL (6.4-8.2)
[~2018-03-02 12:35] MED LIST changes: -AMLO5TAB7 PO; +AMLO5TAB9 PO; -IOHEXOL 350 MG/ML 100 ML (OMNIPAQUE 350) VIAL IV ONE; -NS 250 ML (IVPB) BAG IV ONE; -RECEIVED CONTRAST (Hold Metformin) IV SCH
== END 2018-05-17 | disposition home or self-care (01) ==
LOC: ONC 12:35
PROVIDERS: ATTEND Internal Medicine Hematology & Oncology
DX: C50.412 Malignant neoplasm of upper-outer quadrant of left female breast (principal); J44.9 Chronic obstructive pulmonary disease, unspecified; I10 Essential (primary) hypertension; E78.5 Hyperlipidemia, unspecified; F31.9 Bipolar disorder, unspecified; K21.9 Gastro-esophageal reflux disease without esophagitis; E66.01 Morbid (severe) obesity due to excess calories; Z68.41 Body mass index [BMI] 40.0-44.9, adult; Z79.818 Long term (current) use of other agents affecting estrogen receptors and estrogen levels; Z79.899 Other long term (current) drug therapy
CPT/HCPCS: 36415; 80053; 85025; 99213